=== PATIENT | male | born 1965 | race Caucasian/White ===

== ENCOUNTER 2017-05-28 09:27 | Outpatient (RCR) | payer MEDICARE, OTHER, SELFPAY ==
[2017-05-04 08:31] LABS: Hematocrit 48.5 % (40-54); Hemoglobin 15.7 g/dl (13.0-16.5); Mean Corp Hgb Conc 32.4 g/gl (32-36); Mean Corpuscular Hgb 28.6 pg (27.0-32.0); Mean Corpuscular Volume 88.5 fL (80-94); Mean Platelet Vol. 10.7 fl (6.2-12.0); Platelet Count 180 K/mm3 (150-450); RBC Distribution Width CV 14.1 % (11.6-14.6); Red Blood Count 5.48 M/mm3 (4.6-6.2); White Blood Count 5.8 K/mm3 (4.4-11.0)
[2017-05-04 08:42] LABS: Scan Indicated on CBC? Y/N NO
[2017-05-04 08:52] LABS: BUN 23 mg/dL (7-18); Calcium,Total 7.9 mg/dL (8.5-10.1); Chloride 106 mmol/L (98-107); Creatinine, Serum 1.64 mg/dL (0.70-1.30); EST Glomerular Filtration Rate 48 mL/min (>60); Est Glom Filt Rate - Afr Amer 58 mL/min (>60); Glucose 89 mg/dL (70-110); Phosphorus 1.8 mg/dL (2.5-4.9); Potassium 3.8 mmol/L (3.5-5.1); Sodium Level 138 mmol/L (136-145)
[2017-05-04 09:15] LABS: Prograf-FK506 TO CCF/UNIV MAILED SPECIMEN
== END 2017-05-28 09:45 | disposition home or self-care (01) ==
LOC: LAB 09:27
PROVIDERS: Family Provider Family Medicine; PCP Family Medicine
DX: D89.9 Disorder involving the immune mechanism, unspecified (principal); Z94.0 Kidney transplant status
CPT/HCPCS: 36415; 80069; 85027

== ENCOUNTER 2017-06-18 08:05 | Outpatient (RCR) | payer MEDICARE, OTHER, SELFPAY ==
[2017-06-04 09:12] LABS: Hematocrit 45.7 % (40-54); Hemoglobin 14.5 g/dl (13.0-16.5); Mean Corp Hgb Conc 31.7 g/gl (32-36); Mean Corpuscular Volume 88.4 fL (80-94); Mean Platelet Vol. 9.8 fl (6.2-12.0); Platelet Count 224 K/mm3 (150-450); RBC Distribution Width CV 13.5 % (11.6-14.6); RBC Distribution Width SD 43.4 fl (35.1-43.9); Red Blood Count 5.17 M/mm3 (4.6-6.2)
[2017-06-04 09:13] LABS: Scan Indicated on CBC? Y/N NO
[2017-06-04 09:40] LABS: Albumin, Serum 3.6 g/dL (3.2-5.0); BUN 26 mg/dL (7-18); BUN/Creat Ratio 17.8 RATIO (10-20); Calcium,Total 8.2 mg/dL (8.5-10.1); Chloride 112 mmol/L (98-107); Creatinine, Serum 1.46 mg/dL (0.70-1.30); EST Glomerular Filtration Rate 54 mL/min (>60); Est Glom Filt Rate - Afr Amer 66 mL/min (>60); Glucose 90 mg/dL (70-110); Phosphorus 2.3 mg/dL (2.5-4.9); Potassium 4.3 mmol/L (3.5-5.1); Sodium Level 141 mmol/L (136-145)
[2017-06-18 08:56] LABS: Hematocrit 45.5 % (40-54); Hemoglobin 14.9 g/dl (13.0-16.5); Mean Corp Hgb Conc 32.7 g/gl (32-36); Mean Corpuscular Hgb 28.7 pg (27.0-32.0); Mean Corpuscular Volume 87.7 fL (80-94); Platelet Count 174 K/mm3 (150-450); RBC Distribution Width CV 13.9 % (11.6-14.6); RBC Distribution Width SD 44.2 fl (35.1-43.9); Red Blood Count 5.19 M/mm3 (4.6-6.2); White Blood Count 3.9 K/mm3 (4.4-11.0)
[2017-06-18 08:58] LABS: Scan Indicated on CBC? Y/N NO
[2017-06-18 09:28] LABS: Albumin, Serum 3.8 g/dL (3.2-5.0); BUN 22 mg/dL (7-18); Chloride 108 mmol/L (98-107); Creatinine, Serum 1.57 mg/dL (0.70-1.30); EST Glomerular Filtration Rate 50 mL/min (>60); Est Glom Filt Rate - Afr Amer 60 mL/min (>60); Glucose 99 mg/dL (74-106); Phosphorus 2.4 mg/dL (2.5-4.9); Potassium 3.6 mmol/L (3.5-5.1); Sodium Level 141 mmol/L (136-145)
[2017-06-21 07:46] LABS: Tacrolimus (FK506) 12.9 ng/mL (2.0-20.0)
== END 2017-06-18 15:00 | disposition home or self-care (01) ==
LOC: LAB 08:05
PROVIDERS: Family Provider Family Medicine; PCP Family Medicine
DX: D89.9 Disorder involving the immune mechanism, unspecified (principal); Z94.0 Kidney transplant status
CPT/HCPCS: 36415; 80069; 80197; 85027

== ENCOUNTER → 2017-07-12 10:46 | Outpatient (CLI) | payer MEDICARE, OTHER, SELFPAY ==
--- NOTE | 2017-07-12 10:48 | US_ITS ---
STUDY: RENAL ULTRASOUND - COMPLETE REASON FOR EXAM: Male, 52 years old. HEMATURIA, CKD AND H/O RT RENAL TRANSPLANT TECHNIQUE: Ultrasound evaluation of the kidneys was performed with real-time and static cruz-scale imaging. COMPARISON: US Kidneys Bilateral Jul 15 2016 10:10am . FINDINGS: RIGHT KIDNEY: with moderate renal atrophy. The right kidney measures 6.9X2.8X3.2 cm. There is diffuse thinning of the renal cortex. The renal cortex measures 0.6 cm. Right renal cyst measuring 10 x 10 mm. There are no right renal calculi. There is moderate hydronephrosis of the right kidney. DISTAL RIGHT URETER: There is non-visualization of the distal right ureter. There is no demonstrated right ureterovesical junction calculus. There is no demonstrated right ureteral jet. Right renal transplant kidney: 10 x 4.4 x 4.6cm in size. Cortex is 17mm. LEFT KIDNEY: NOT SEEN. DISTAL LEFT URETER: There is no demonstrated left ureteral jet. BLADDER: There is a diffusely thickened wall of the distended bladder. Echogenic debris is seen within the dependent aspect of the urinary bladder. There are no demonstrated bladder calculi. US/Kidney and Bladder IMPRESSION: Atrophic right [place] kidney. There is moderate hydronephrosis of the right kidney. There is a diffusely thickened wall of the distended bladder. Echogenic debris is seen within the dependent aspect of the urinary bladder. Unremarkable right renal transplant kidney. Electronically Signed: Hans Wong MD at 17:37 EDT , Service support ,
== END ==
PROVIDERS: Family Provider Family Medicine; PCP Family Medicine; Visit Provider Nurse Practitioner Adult Health
DX: N18.9 Chronic kidney disease, unspecified (principal); R31.9 Hematuria, unspecified
CPT/HCPCS: 76770

== ENCOUNTER 2017-07-13 21:32 | Inpatient (IN) | payer MEDICARE, OTHER, SELFPAY ==
[2017-07-13] VITALS (7 sets, daily range): BP systolic 121–123; BP diastolic 67–88; PULSE 110–136; RESP 16–24; TEMP 37.7–38.5; O2SAT 93–96; BMI 24.5
--- NOTE | 2017-07-13 21:47 | EKG12_ITS ---
Test Reason : FEVER Blood Pressure : / mmHG Vent. Rate : 122 BPM Atrial Rate : 122 BPM P-R Int : 136 ms QRS Dur : 076 ms QT Int : 306 ms P-R-T Axes : 040 -07 055 degrees QTc Int : 436 ms Sinus tachycardia Otherwise normal ECG Confirmed by SUSAN MORENO, RAEANN ([id number]), assistant production editor EUGENIO CONKLIN ([id number] on 07/16/2017 1:29:09 PM Referred By: BROOK Confirmed By:RAEANN DAVIS MD
--- NOTE | 2017-07-13 21:50 | RAD_ITS ---
STUDY: X-RAY CHEST REASON FOR EXAM: Male, 52 years old. , cough, and abdominal pain TECHNIQUE: Single AP portable view of the chest. fever COMPARISON: None. FINDINGS: The lungs are clear and expanded. There is no demonstrated pleural abnormality. Normal size heart. Normal mediastinum and [place]. Normal visualized pulmonary arteries. Normal visualized aortic arch and descending thoracic aorta. Normal visualized thoracic spine. Normal visualized ribs, clavicles, and shoulders. There is no demonstrated abnormality of the visualized soft tissue structures of the upper abdomen. RAD/Chest 1 View (Portable) IMPRESSION: Normal x-ray examination of the chest. Electronically Signed: Hans Wong MD at 22:44 EDT , Service support ,
[2017-07-13] MEDS: Acetaminophen 500 MG Tablet 1000 MG PO (22:01)
[2017-07-13] MEDS: 0.9% Normal Saline 1,000 ML 250 ML IV (22:16)
[2017-07-13 22:28] LABS: Absolute Lymphocyte Count 0.41 X10^3/ul (0.83-4.51); Absolute Neutrophil Count 3.7 X10^3/uL (2.0-7.7); Basophil# 0.01 X10^3/uL; Basophil% 0.2 % (0-1); Hematocrit 46.8 % (40-54); International Normalized Ratio 1.1; Lymphocyte # 0.41 X10^3/ul (4.0); Lymphocyte % 9.4 % (19-41); Mean Corp Hgb Conc 32.1 g/gl (32-36); Mean Corpuscular Hgb 28.4 pg (27.0-32.0); Mean Corpuscular Volume 88.6 fL (80-94); Mean Platelet Vol. 10.5 fl (6.2-12.0); Monocyte# 0.13 X10^3/uL; Neutrophil # 3.72 X10^3/uL (2.7-7.7); Neutrophil % 85.8 % (47-70); Platelet Count 166 K/mm3 (150-450); Prothrombin Time (Protime)PT. 14.1 SECONDS (11.7-14.9); RBC Distribution Width CV 13.9 % (11.6-14.6); RBC Distribution Width SD 44.8 fl (35.1-43.9); Red Blood Count 5.28 M/mm3 (4.6-6.2); White Blood Count 4.3 K/mm3 (4.4-11.0)
[2017-07-13 22:29] LABS: Differential Indicated SCAN CRITERIA MET; POSITIVE COUNT NO; POSITIVE DIFFERENTIAL YES; POSITIVE MORPHOLOGY NO
[2017-07-13 22:42] LABS: ALB/GLOB Ratio 1.2 RATIO (0.9-2.4); AST(SGOT) 23 U/L (15-37); Alanine Aminotransfer ALT/SGPT 26 U/L (16-61); Albumin, Serum 4.1 g/dL (3.2-5.0); Alkaline Phosphatase 60 U/L (45-117); Anion Gap 11 (5-15); BUN 15 mg/dL (7-18); BUN/Creat Ratio 9.4 RATIO (10-20); Chloride 111 mmol/L (98-107); EST Glomerular Filtration Rate 49 mL/min (>60); Est Glom Filt Rate - Afr Amer 59 mL/min (>60); Estimated Creatinine Clearance 60.63 ml/min; Globulin 3.3 g/dL (2.2-4.2); Glucose 115 mg/dL (74-106); Potassium 3.9 mmol/L (3.5-5.1); Protein, Total 7.4 g/dL (6.4-8.2); Sodium Level 141 mmol/L (136-145)
[2017-07-13 22:48] LABS: Lactic Acid 1.1 mmol/L (0.4-2.0)
[2017-07-13 22:56] LABS: Mucous, Urine 0 SEEN /hpf (<or=2+)
[2017-07-13 22:56] LABS: Differential Comment SCANNED
[2017-07-13 22:58] LABS: Color, Urine Yellow (Yellow); Glucose, Dipstick Normal (Normal); Ketone-Dipstick Negative (Negative); Leukocyte Esterase-Dipstick 500 /ul (Negative); Nitrite-Dipstick Negative (Negative); Occult Blood-Urine 250 /ul (Negative); Protein-Dipstick 30 mg/dl (Negative); Specific Gravity, Urine 1.015 (1.002-1.030); Urine Bilirubin Dipstick Negative (Negative); Urine Clarity Sl. Cloudy (Clear); Urine Urobilinogen Normal (Normal)
[2017-07-13 23:09] LABS: Bacteria 3+ /hpf (None Seen); Red Blood Cells-Urine 25-50 SEEN /hpf (0-5); Squamous Epithelial Cells - UA 0-5 SEEN /hpf (0-5); White Blood Cells >100 SEEN /hpf (0-5)
[2017-07-13] MEDS: Ceftriaxone 1 GM/50 ML BAG IV (23:22)
--- NOTE | 2017-07-13 23:29 | ED.DCSUM_ITS ---
- ER Visit Summary Date of Service: 07/13/17 Chief Complaint: Fever nausea and vomiting History of Present Illness: The patient is a 52 M presenting for evaluation secondary to fever nausea and vomiting. Patient has an underlying history of renal transplant and is on immunosuppression. Patient states that over the course last 2 days he has started to have some increasing fatigue, and then today this morning he developed fevers as high as 102 generalized malaise, cough , and one episode of nonbloody nonbilious emesis. Patient does self catheterize to urinate but denies any changes in his urination. Denies any diarrhea. Denies any headaches or neck stiffness. Review of systems otherwise negative. Physical Examination: Vital signs notable for a fever of 101.3 and a heart rate of 124 respiratory rate of 24. Well-nourished well-developed male no acute distress. Head normocephalic. Dry mucous membranes noted. Heart was tachycardic and regular. Lung sounds clear to auscultation bilaterally respirations nondistressed with mild tachypnea. Abdomen was soft and nontender. 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 Skin is palpably hot. Patient is alert and oriented with no lateralizing neurologic deficits. Test Results: EKG demonstrates sinus tachycardia rate of [address] segments normal T waves no changes from prior. CBC shows mild leukopenia with a white blood cell count of 4.3, a neutrophilic predominance of 85% with bands cells. Chemistry shows no anion gap but does show a CO2 of 19. Patient's creatinine was 1.6 which is at his baseline. Urinalysis demonstrates evidence of leukocytes blood and bacteria. Lactate found to be negative. Flu negative. Chest x-ray negative. Emergency Department Course and Treatment: Patient presented with a fever and generalized illness in the setting of being immunosuppressed. Sepsis workup was obtained including cultures of the blood in the urine. Patient was started on IV saline hydration was given a gram of Tylenol. Repeat evaluation did show improvement of his heart rate, but continued fever. Workup shows only bacteria and white cells in the urine which could potentially be chronic given his self cathing, but at this point that is the only source of infection that I have. Patient was given a gram of Rocephin and will be admitted under the hospitalist. Disposition: Admission Impression: 1. Sepsis 2. Urinary tract infection 3. History of immunosuppression 4. Chronic kidney disease This note was generated with [employer] dictation software. It may contain incorrect words, spelling, and punctuation that were not noted in review of the chart prior to signing ED Disposition - Plan for ED Patient: Chief Complaint: General Illness Referrals: Mike Bella MD [Primary Care Provider] -
--- NOTE | 2017-07-13 23:36 | PCM.HP.STD ---
Problem List (1) Congenital nystagmus Status: Chronic (2) Mild MRDD Status: Chronic (3) DVT (deep venous thrombosis) Status: Chronic Qualifiers: Affected thrombotic vein of extremity: unspecified vein of extremity Chronicity: unspecified Laterality: unspecified laterality (4) Renal transplant, status post Status: Chronic (5) Neurogenic bladder disorder Status: Chronic Comment: managed with cic (6) CKD (chronic kidney disease), stage III Status: Chronic (7) Acute UTI Status: Acute History of Present Illness Date of Admission: 07/13/17 Chief Complaint: Fever, Nausea/Emesis, Suprapubic pain The patient is a 52 y/o M w/ PMHx: Mild MRDD with help from his family/sister, Congenital Nystagmus, CKD stage III (baseline Cr 1.6 currently, prior ESRD s/p Renal Txp), Renal Txp status on immunosuppressive therapy, Neurogenic bladder w/ self catheterization, Hx DVT who presents to the [facility] ED on 07/13/17 with history of onset fever 102, nausea, emesis in addition to suprapubic pain x 24 hours. He notes that he has not been catheterization as frequently as he should secondary to current family issues with sister assisting other family and less able to frequently remind him to self catheterize (should be q 4 hours during daytime hours she notes). In the ED work-up includes T 101.3, HR 113, BP 121/67, RR 18, 95% on 2L NC, CBC w/ WBC 4.3, Hgb 15, Plts 166 without marked L shift, normal coags, CMP w/ Chl 111, CO2 19, BUN/Cr 15/1.60, glucose 115, LA 1.1, TBili 1.30, UA concerning for UTI, CXR unremarkable. In the ED patient administered tylenol, rocephin, NS. Past Medical History Past Medical History (Chronic Problems): Chronic Problems CKD (chronic kidney disease), stage III (Chronic) Congenital nystagmus (Chronic) Mild MRDD (Chronic) DVT (deep venous thrombosis) (Chronic) Renal transplant, status post (Chronic) Neurogenic bladder disorder (Chronic) managed with cic Allergies No Known Allergies Allergy (Verified 07/13/17 21:32) Home Medications: Ambulatory Orders Medication Instructions Recorded Mycophenolate Mofetil [Cellcept] 500 mg PO BID 03/14/17 Amlodipine [Norvasc] 5 mg PO 2100 12/01/16 Tacrolimus Anhydrous [Prograf] 2 mg PO BID 12/02/16 Sulfamethoxazole/Trimethoprim 1 tab PO DAILY 07/13/17 [Sulfamethoxazole-Tmp Ss Tablet] Surgical History: - - Right kidney transplant [facility], dialysis access prior. Psychiatric History: No pertinent psych hx Lives: Alone Smoking Status: Never smoker Tobacco Use: Non-smoker Alcohol: None Drugs: None - *Family History Maternal History Items: Hypertension Paternal History Items: Diabetes Review of Systems Constitutional: Reports: Anorexia, Chills, Fever, Malaise, Weakness, Fatigue. Denies: Weight Change HEENT: Denies: Head Aches, Sinus Congestion, Sinus Drainage Cardiovascular: Denies: Chest Pain, Palpitations Respiratory: Denies: Cough, Shortness of breath at rest, Sputum production Gastrointestinal: Reports: Abdominal Pain, Nausea, Vomiting Genitourinary: Reports: Retention. Denies: Dysuria Musculoskeletal: Denies: Joint Pain, Joint Tenderness Skin: Denies: Rash, Wounds Neurological: Denies: Numbness, Tingling, Focal weakness Psychiatric: Denies: Anxiety, Depression, Homicidal Ideations, Suicidal Ideations Hematologic/ Lymphatic: Denies: Easy Bruising, Easy Bleeding VTE Information - Inpt Only VTE Present on Admission: No VTE Mechan Device Prophylaxis: SCD's VTE Pharm Prophylaxis ordered?: Yes Patient Problems: Active and Suspected Problems Acute UTI (Acute) Subjective: Seated upright in the ED bed, fatigued appearing. Objective: Physical Examination: General: awake, alert, oriented x 3 and cooperative, seated upright in the ED bed in no apparent distress. Skin: normal color, turgor, no icterus, cyanosis. HEENT: AT/NC, EOMI, PERRLA, dry MM, mildly poor dentition, nystagmus present (chronic), no carotid bruits or JVD noted. Lungs: CTA bilaterally, moderate effort, moderate decrease BL bases, no rales, ronchi or wheezing. Heart: Tachycardic with regular rhythm; no gallop, rub audible. Abdomen: soft, + suprapubic TTP, ND, normal BS, no HSM, harman in place per ED. Extremities: no cyanosis, clubbing, or edema. Neurological: patient awake, alert, oriented x 3; cognitive function intact; pupils equally reactive to light and accomodation; cranial nerves II-XII grossly normal, moving all 4 extremities, no focal deficits, strength moderately to severely globally decreased secondary to acute presentation. Psychiatric: affect appears mildly flat, no acute evidence of depressive or anxiety feelings. - Physical Exam Vital Signs Temp Pulse Resp BP Pulse Ox 100 F H 121 H 18 123/67 H 95 07/13/17 23:28 07/13/17 23:28 07/13/17 23:28 07/13/17 23:28 07/13/17 23:28 Oxygen Flow Rate (L/min) 2 Oxygen Delivery Method Nasal Cannula Weight: 180 lb 8.937 oz Body Mass Index (BMI) 24.5 Microbiology Past 72 Hours 07/13/17 22:28 Influenza Types A,B Direct FA (NYA) - Final Mucosa - Nasopharyngeal Laboratory Tests Past 24 Hrs 07/13/17 07/13/17 07/13/17 22:10 22:10 22:10 WBC 4.3 L RBC 5.28 Hgb 15.0 Hct 46.8 MCV 88.6 MCH 28.4 MCHC 32.1 RDW 13.9 RDW Differential 44.8 H Plt Count 166 MPV 10.5 Immature Gran % (Auto) 1.600 H Neut % (Auto) 85.8 H Lymph % (Auto) 9.4 L [place] % (Auto) 3.0 Eos % (Auto) 0.0 Baso % (Auto) 0.2 Absolute Neuts (auto) 3.7 Absolute Lymphs (auto) 0.41 L Total Counted Not Reportable Differential Comment SCANNED PT 14.1 INR 1.1 APTT 29.0 Sodium 141 Potassium 3.9 Chloride 111 H Carbon Dioxide 19.0 L Anion Gap 11 BUN 15 Creatinine 1.60 H Estim Creat Clear Calc 60.63 Est GFR (MDRD) Af Amer 59 L Est GFR (MDRD) Non-Af 49 L BUN/Creatinine Ratio 9.4 L Glucose 115 H Lactic Acid Calcium 8.0 L Total Bilirubin 1.30 H AST 23 ALT 26 Alkaline Phosphatase 60 Total Protein 7.4 Albumin 4.1 Globulin 3.3 Albumin/Globulin Ratio 1.2 Urine Color Urine Clarity Urine pH Ur Specific [place] Urine Protein Urine Glucose (UA) Urine Ketones Urine Occult Blood Urine Nitrite Urine Bilirubin Urine Urobilinogen Ur Leukocyte Esterase Urine RBC Urine WBC Ur Squamous Epith Cells Urine Bacteria Urine Mucus 07/13/17 07/13/17 22:10 22:45 WBC RBC Hgb Hct MCV MCH MCHC RDW RDW Differential Plt Count MPV Immature Gran % (Auto) Neut % (Auto) Lymph % (Auto) [place] % (Auto) Eos % (Auto) Baso % (Auto) Absolute Neuts (auto) Absolute Lymphs (auto) Total Counted Differential Comment PT INR APTT Sodium Potassium Chloride Carbon Dioxide Anion Gap BUN Creatinine Estim Creat Clear Calc Est GFR (MDRD) Af Amer Est GFR (MDRD) Non-Af BUN/Creatinine Ratio Glucose Lactic Acid 1.1 Calcium Total Bilirubin AST ALT Alkaline Phosphatase Total Protein Albumin Globulin Albumin/Globulin Ratio Urine Color Yellow Urine Clarity Sl. Cloudy Urine pH 6.0 Ur Specific [place] 1.015 Urine Protein 30 H Urine Glucose (UA) Normal Urine Ketones Negative Urine Occult Blood 250 H Urine Nitrite Negative Urine Bilirubin Negative Urine Urobilinogen Normal Ur Leukocyte Esterase 500 H Urine RBC 25-50 SEEN Urine WBC >100 SEEN Ur Squamous Epith Cells 0-5 SEEN Urine Bacteria 3+ Urine Mucus 0 SEEN Assessment/Plan Active and Suspected Problems Acute UTI (Acute) The patient is a 52 y/o M w/ PMHx: Mild MRDD with help from his family/sister, Congenital Nystagmus, CKD stage III (baseline Cr 1.6 currently, prior ESRD s/p Renal Txp), Renal Txp status on immunosuppressive therapy, Neurogenic bladder w/ self catheterization, Hx DVT who presents to the [facility] ED on 07/13/17 with history of onset fever 102, nausea, emesis in addition to suprapubic pain x 24 hours. (1) Acute Complicated Urinary Tract Infection complicated by Neurogenic Bladder and Self-Catheterization: Will admit to [facility] upon ED evaluation remarkable, pending UCx, continue IVFs, monitor I/Os, continue IV Rocephin w/ transition as able pending sensitivities and speciation. Bld cx x 2 obtained in the ED. Given complicated history s/p renal txp, will request ID evaluation also to be cautious. (2) Prior ESRD/CKD IV, currently CKD stage III, status post kidney transplant: Admission BUN/Cr 15/1.60, stable, baseline Cr 1.6, continue cellcept, prograf, bactrim prophylactic regimen. ID as noted consulted, pending. (3) Hypertension: Continue home regimen including norvasc, PRN hydralazine. (4) Mild mental retardation: Stable, family supportive, CM requested to assure assistance. (5) Chronic neurogenic bladder: As noted per #1, harman placed in the ED, will need aggressive education on appropriate catheterization, has been hesitant secondary to pain, planned upcoming re-evaluation per Dr. Dennis per family report. (6) DVT Prophylaxis: SCDs, heparin. Code Visit Inpatient E&M: 34296 Init Hosp L3
--- NOTE | 2017-07-13 23:46 | HP.PCM_ITS ---
Problem List (1) Congenital nystagmus Status: Chronic (2) Mild MRDD Status: Chronic (3) DVT (deep venous thrombosis) Status: Chronic Qualifiers: Affected thrombotic vein of extremity: unspecified vein of extremity Chronicity: unspecified Laterality: unspecified laterality (4) Renal transplant, status post Status: Chronic (5) Neurogenic bladder disorder Status: Chronic Comment: managed with cic (6) CKD (chronic kidney disease), stage III Status: Chronic (7) Acute UTI Status: Acute History of Present Illness Date of Admission: 07/13/17 Chief Complaint: Fever, Nausea/Emesis, Suprapubic pain The patient is a 52 y/o M w/ PMHx: Mild MRDD with help from his family/sister, Congenital Nystagmus, CKD stage III (baseline Cr 1.6 currently, prior ESRD s/p Renal Txp), Renal Txp status on immunosuppressive therapy, Neurogenic bladder w / self catheterization, Hx DVT who presents to the [facility] ED on 07/13/17 with history of onset fever 102, nausea, emesis in addition to suprapubic pain x 24 hours. He notes that he has not been catheterization as frequently as he should secondary to current family issues with sister assisting other family and less able to frequently remind him to self catheterize (should be q 4 hours during daytime hours she notes). In the ED work-up includes T 101.3, HR 113, BP 121/67 , RR 18, 95% on 2L NC, CBC w/ WBC 4.3, Hgb 15, Plts 166 without marked L shift, normal coags, CMP w/ Chl 111, CO2 19, BUN/Cr 15/1.60, glucose 115, LA 1.1, TBili 1.30, UA concerning for UTI, CXR unremarkable. In the ED patient administered tylenol, rocephin, NS. Past Medical History Past Medical History (Chronic Problems): Chronic Problems CKD (chronic kidney disease), stage III (Chronic) Congenital nystagmus (Chronic) Mild MRDD (Chronic) DVT (deep venous thrombosis) (Chronic) Renal transplant, status post (Chronic) Neurogenic bladder disorder (Chronic) managed with cic Allergies No Known Allergies Allergy (Verified 07/13/17 21:32) Home Medications: Ambulatory Orders Medication Instructions Recorded Mycophenolate Mofetil [Cellcept] 500 mg PO BID 03/14/17 Amlodipine [Norvasc] 5 mg PO 2100 12/01/16 Tacrolimus Anhydrous [Prograf] 2 mg PO BID 12/02/16 Sulfamethoxazole/Trimethoprim 1 tab PO DAILY 07/13/17 [Sulfamethoxazole-Tmp Ss Tablet] Surgical History: - - Right kidney transplant [facility], dialysis access prior. Psychiatric History: No pertinent psych hx Lives: Alone Smoking Status: Never smoker Tobacco Use: Non-smoker Alcohol: None Drugs: None - *Family History Maternal History Items: Hypertension Paternal History Items: Diabetes Review of Systems Constitutional: Reports: Anorexia, Chills, Fever, Malaise, Weakness, Fatigue. Denies: Weight Change HEENT: Denies: Head Aches, Sinus Congestion, Sinus Drainage Cardiovascular: Denies: Chest Pain, Palpitations Respiratory: Denies: Cough, Shortness of breath at rest, Sputum production Gastrointestinal: Reports: Abdominal Pain, Nausea, Vomiting Genitourinary: Reports: Retention. Denies: Dysuria Musculoskeletal: Denies: Joint Pain, Joint Tenderness Skin: Denies: Rash, Wounds Neurological: Denies: Numbness, Tingling, Focal weakness Psychiatric: Denies: Anxiety, Depression, Homicidal Ideations, Suicidal Ideations Hematologic/ Lymphatic: Denies: Easy Bruising, Easy Bleeding VTE Information - Inpt Only VTE Present on Admission: No VTE Mechan Device Prophylaxis: SCD's VTE Pharm Prophylaxis ordered?: Yes Patient Problems: Active and Suspected Problems Acute UTI (Acute) Subjective: Seated upright in the ED bed, fatigued appearing. Objective: Physical Examination: General: awake, alert, oriented x 3 and cooperative, seated upright in the ED bed in no apparent distress. Skin: normal color, turgor, no icterus, cyanosis. HEENT: AT/NC, EOMI, PERRLA, dry MM, mildly poor dentition, nystagmus present ( chronic), no carotid bruits or JVD noted. Lungs: CTA bilaterally, moderate effort, moderate decrease BL bases, no rales, ronchi or wheezing. Heart: Tachycardic with regular rhythm; no gallop, rub audible. Abdomen: soft, + suprapubic TTP, ND, normal BS, no HSM, harman in place per ED. Extremities: no cyanosis, clubbing, or edema. Neurological: patient awake, alert, oriented x 3; cognitive function intact; pupils equally reactive to light and accomodation; cranial nerves II-XII grossly normal, moving all 4 extremities, no focal deficits, strength moderately to severely globally decreased secondary to acute presentation. Psychiatric: affect appears mildly flat, no acute evidence of depressive or anxiety feelings. - Physical Exam Vital Signs Temp Pulse Resp BP Pulse Ox 100 F H 121 H 18 123/67 H 95 07/13/17 23:28 07/13/17 23:28 07/13/17 23:28 07/13/17 23:28 07/13/17 23:28 Oxygen Flow Rate (L/min) 2 Oxygen Delivery Method Nasal Cannula Weight: 180 lb 8.937 oz Body Mass Index (BMI) 24.5 Microbiology Past 72 Hours 07/13/17 22:28 Influenza Types A,B Direct FA (NYA) - Final Mucosa - Nasopharyngeal Laboratory Tests Past 24 Hrs 07/13/17 07/13/17 07/13/17 22:10 22:10 22:10 WBC 4.3 L RBC 5.28 Hgb 15.0 Hct 46.8 MCV 88.6 MCH 28.4 MCHC 32.1 RDW 13.9 RDW Differential 44.8 H Plt Count 166 MPV 10.5 Immature Gran % (Auto) 1.600 H Neut % (Auto) 85.8 H Lymph % (Auto) 9.4 L [place] % (Auto) 3.0 Eos % (Auto) 0.0 Baso % (Auto) 0.2 Absolute Neuts (auto) 3.7 Absolute Lymphs (auto) 0.41 L Total Counted Not Reportable Differential Comment SCANNED PT 14.1 INR 1.1 APTT 29.0 Sodium 141 Potassium 3.9 Chloride 111 H Carbon Dioxide 19.0 L Anion Gap 11 BUN 15 Creatinine 1.60 H Estim Creat Clear Calc 60.63 Est GFR (MDRD) Af Amer 59 L Est GFR (MDRD) Non-Af 49 L BUN/Creatinine Ratio 9.4 L Glucose 115 H Lactic Acid Calcium 8.0 L Total Bilirubin 1.30 H AST 23 ALT 26 Alkaline Phosphatase 60 Total Protein 7.4 Albumin 4.1 Globulin 3.3 Albumin/Globulin Ratio 1.2 Urine Color Urine Clarity Urine pH Ur Specific [place] Urine Protein Urine Glucose (UA) Urine Ketones Urine Occult Blood Urine Nitrite Urine Bilirubin Urine Urobilinogen Ur Leukocyte Esterase Urine RBC Urine WBC Ur Squamous Epith Cells Urine Bacteria Urine Mucus 07/13/17 07/13/17 22:10 22:45 WBC RBC Hgb Hct MCV MCH MCHC RDW RDW Differential Plt Count MPV Immature Gran % (Auto) Neut % (Auto) Lymph % (Auto) [place] % (Auto) Eos % (Auto) Baso % (Auto) Absolute Neuts (auto) Absolute Lymphs (auto) Total Counted Differential Comment PT INR APTT Sodium Potassium Chloride Carbon Dioxide Anion Gap BUN Creatinine Estim Creat Clear Calc Est GFR (MDRD) Af Amer Est GFR (MDRD) Non-Af BUN/Creatinine Ratio Glucose Lactic Acid 1.1 Calcium Total Bilirubin AST ALT Alkaline Phosphatase Total Protein Albumin Globulin Albumin/Globulin Ratio Urine Color Yellow Urine Clarity Sl. Cloudy Urine pH 6.0 Ur Specific [place] 1.015 Urine Protein 30 H Urine Glucose (UA) Normal Urine Ketones Negative Urine Occult Blood 250 H Urine Nitrite Negative Urine Bilirubin Negative Urine Urobilinogen Normal Ur Leukocyte Esterase 500 H Urine RBC 25-50 SEEN Urine WBC >100 SEEN Ur Squamous Epith Cells 0-5 SEEN Urine Bacteria 3+ Urine Mucus 0 SEEN Assessment/Plan Active and Suspected Problems Acute UTI (Acute) The patient is a 52 y/o M w/ PMHx: Mild MRDD with help from his family/sister, Congenital Nystagmus, CKD stage III (baseline Cr 1.6 currently, prior ESRD s/p Renal Txp), Renal Txp status on immunosuppressive therapy, Neurogenic bladder w / self catheterization, Hx DVT who presents to the [facility] ED on 07/13/17 with history of onset fever 102, nausea, emesis in addition to suprapubic pain x 24 hours. (1) Acute Complicated Urinary Tract Infection complicated by Neurogenic Bladder and Self-Catheterization: Will admit to [facility] upon ED evaluation remarkable, pending UCx, continue IVFs, monitor I/Os, continue IV Rocephin w/ transition as able pending sensitivities and speciation. Bld cx x 2 obtained in the ED. Given complicated history s/p renal txp, will request ID evaluation also to be cautious. (2) Prior ESRD/CKD IV, currently CKD stage III, status post kidney transplant: Admission BUN/Cr 15/1.60, stable, baseline Cr 1.6, continue cellcept, prograf, bactrim prophylactic regimen. ID as noted consulted, pending. (3) Hypertension: Continue home regimen including norvasc, PRN hydralazine. (4) Mild mental retardation: Stable, family supportive, CM requested to assure assistance. (5) Chronic neurogenic bladder: As noted per #1, harman placed in the ED, will need aggressive education on appropriate catheterization, has been hesitant secondary to pain, planned upcoming re-evaluation per Dr. Dennis per family report. (6) DVT Prophylaxis: SCDs, heparin. Code Visit Inpatient E&M: 27641 Init Hosp L3
[2017-07-14] VITALS (10 sets, daily range): BP systolic 104–130; BP diastolic 54–83; PULSE 97–115; RESP 16–20; TEMP 36.8–39.4; O2SAT 94–100; BMI 23.7
[2017-07-14 01:22] LABS: Magnesium 1.4 mg/dL (1.6-2.6)
[2017-07-14] MEDS: 0.9% Normal Saline 1,000 ML 150 ML IV ×3 (06:12→21:29)
[2017-07-14 06:47] LABS: Hematocrit 44.2 % (40-54); Hemoglobin 14.3 g/dl (13.0-16.5); Mean Corp Hgb Conc 32.4 g/gl (32-36); Mean Corpuscular Hgb 28.5 pg (27.0-32.0); Mean Platelet Vol. 10.7 fl (6.2-12.0); Platelet Count 162 K/mm3 (150-450); RBC Distribution Width SD 44.5 fl (35.1-43.9); Red Blood Count 5.02 M/mm3 (4.6-6.2); White Blood Count 4.1 K/mm3 (4.4-11.0)
[2017-07-14 06:49] LABS: Differential Indicated MANUAL DIFF; POSITIVE COUNT YES; POSITIVE DIFFERENTIAL YES; POSITIVE MORPHOLOGY YES
[2017-07-14 07:03] LABS: Anion Gap 8 (5-15); BUN 15 mg/dL (7-18); BUN/Creat Ratio 9.3 RATIO (10-20); Calcium,Total 7.5 mg/dL (8.5-10.1); Chloride 111 mmol/L (98-107); Creatinine, Serum 1.62 mg/dL (0.70-1.30); EST Glomerular Filtration Rate 48 mL/min (>60); Est Glom Filt Rate - Afr Amer 58 mL/min (>60); Estimated Creatinine Clearance 59.88 ml/min; Glucose 124 mg/dL (74-106); Potassium 3.9 mmol/L (3.5-5.1); Sodium Level 140 mmol/L (136-145)
[2017-07-14] MEDS: Acetaminophen 325 MG Tablet 650 MG PO ×2 (07:03→15:54)
[2017-07-14 07:16] LABS: Lymphocyte 7 % (19-41); Metamyelocyte 1 % (0-1); Monocyte 8 % (0-10); Neutrophil-Band 6 % (0-5); Neutrophil-Segmented 78 % (47-70); Total Cells Counted 100 (MANUAL DIFF)
[2017-07-14 07:17] LABS: Platelet Estimate ADEQUATE (ADEQ); Red Cell Morphology NORM C+C NORMAL (NORM C&C)
[2017-07-14 07:18] LABS: Absolute Lymphocyte Count 0.29 X10^3/ul (0.83-4.51); Absolute Neutrophil Count 3.4 X10^3/uL (2.0-7.7)
[2017-07-14] MEDS: 0.9% NaCl Peripheral Flush Adult/Peds IV ×2 (08:08→15:55)
[2017-07-14] MEDS: Smz/Tmp Ds Tablet 0.5 TABLET PO (09:26)
[2017-07-14] MEDS: Ceftriaxone 1 GM/50 ML BAG IV (09:26)
[2017-07-14] MEDS: Mycophenolate Mofetil 250 MG Capsule 500 MG PO ×2 (09:28→21:24)
[2017-07-14] MEDS: Tacrolimus Anhydrous 1 MG Capsule 2 MG PO ×2 (09:28→21:24)
[2017-07-14 11:01] LABS: Pathologist Review Reviewed
--- NOTE | 2017-07-14 11:08 | PN_ITS ---
Patient Problems: Active and Suspected Problems Acute UTI (Acute) Subjective: The patient is a 52-year-old male with a past medical history of mild MRDD, congenital nystagmus, chronic renal failure stage III with a creatinine 1.6 currently, history of renal transplant on chronic immunosuppressive therapy, neurogenic bladder (he self caths) and history of DVT who presented to the [facility] emergency room on 07/13/2017 complaining of fever 102 at home with associated nausea, vomiting and suprapubic pain. He admitted to not catheterizing himself as frequently as he should because his sister has been busy with other family members and not able to remind him. No signs in the emergency room were temp 101.3, heart rate 113, blood pressure 121/67, respiratory rate 18 and he was 95% saturated on a 2 L nasal cannula. Significant lab included a white blood cell count of 4.386% neutrophils at 1.6% immature granulocytes. Hemoglobin and platelet count were within normal limits. Creatinine was 1.6 with a BUN of 15. Serum bicarb was low at 19. Knees and was low at 1.4 and phosphorus was not checked. LFTs were unremarkable. They showed 25-50 RBCs, greater than 100 WBCs, 0-5 squamous epithelial cells and 3+ bacteria. Chest x-ray was read as normal but per my examination reveals a possible infiltrate in the right base when compared to chest x-ray in January 2017. He was admitted to the hospital with acute complicated urinary tract infection in a patient who routinely self catheterizes who is on immunosuppressive drugs. He was started on Rocephin and blood cultures and urine culture were ordered. In the past he has grown an E. coli ESBL, Enterococcus faecalis, Klebsiella pneumoniae and Enterobacter in his urine. The E. Coli ESBL was sensitive to Imipenem and Resistant to Cefipime. - Physical Exam General: Alert, Cooperative, - - He has trouble staying on topic. He is very pleasant and talkative and he appears on no acute distress at the present time HEENT: Atraumatic, PERRLA, EOMI Oral: Moist Mucosa Neck: No Nodes, No Nuchal Rigidity, Trachea Midline Lungs: Clear to auscultation, No rhonchi, No wheeze, No rales Cardiovascular: Regular rate, Regular Rhythm, Normal S1, Normal S2, No murmurs, No rub noted, No Gallop Abdomen: Bowel Sounds Present, Soft, Non-Distended, - - diffusely tender but, no guarding with palpation Vital Signs Temp Pulse Resp BP Pulse Ox 99.9 F H 107 H 18 107/54 L 94 07/14/17 07:46 07/14/17 07:46 07/14/17 07:46 07/14/17 07:46 07/14/17 07:46 Oxygen Flow Rate (L/min) 2 Oxygen Delivery Method Nasal Cannula Weight: 175 lb 0.752 oz Body Mass Index (BMI) 23.7 Intake and Output for Last 24 Hours 07/12/17 07/13/17 07/14/17 23:59 23:59 23:59 Intake Total 635 / 635 Output Total 880 / 880 Balance -245 / -245 Laboratory Tests Past 24 Hrs 07/14/17 07/14/17 06:20 06:20 WBC 4.1 L RBC 5.02 Hgb 14.3 Hct 44.2 MCV 88.0 MCH 28.5 MCHC 32.4 RDW 14.0 RDW Differential 44.5 H Plt Count 162 MPV 10.7 Neut % (Auto) Not Reportable Absolute Neuts (auto) 3.4 Absolute Lymphs (auto) 0.29 L Total Counted 100 Neutrophils % (Manual) 78 H Band Neutrophils % 6 H Lymphocytes % (Manual) 7 L Monocytes % (Manual) 8 Metamyelocytes % 1 Diff Path Review May foll Platelet Estimate ADEQUATE RBC Morphology NORM C+C Sodium 140 Potassium 3.9 Chloride 111 H Carbon Dioxide 21.0 Anion Gap 8 BUN 15 Creatinine 1.62 H Estim Creat Clear Calc 59.88 Est GFR (MDRD) Af Amer 58 L Est GFR (MDRD) Non-Af 48 L BUN/Creatinine Ratio 9.3 L Glucose 124 H Calcium 7.5 L Assessment/Plan Active and Suspected Problems Acute UTI (Acute) Impressions 1. complicated UTI in an immunocompromised pt with a hx of a renal transplant who self catheterizes at home. ? whether this 52 YO man with MRDD needs more supervision at home....he states he does not self cath as often as he should because his sister forgets to remind him 2. CRF stage III after a kidney transplant 3. chronic immunosuppressive therapy with CellCept and Tacrolimus 4. Neurogenic bladder 5. History of DVT DC the Rocephin and start Merrem because he has grown a E. COLI ESBL in the past and it was resistant to Rocephin. Urine is growing a GM negative korey....will narrow the antibiotic spectrum when the culture results are back Will discuss with the SW and the DC operations planner - does he need to have better supervision at home? Consult [facility] REcheck the lab in the AM Continue Bactrim DS one half tablet daily Appreciate Dr. Santos's assistance in managing antibiotics Heparin 5000 units subcu twice daily for DVT prophylaxis and SCDs/SAMMY hose Monitor weights and I&O closely.....may need to cut back on the fluids Code Visit Inpatient E&M: 33767 Subs Hosp L2
--- NOTE | 2017-07-14 12:12 | PCM.HP.ID ---
Problem List (1) Acute UTI Status: Acute Reason for Consult: uti Consulted by: Dr. Russo History of Present Illness: The patient is a 52 year old M with MRDD, neurogenic bladder, and kidney transplant. Has been compliant with immunosuppression. Reports straight cath at home, but recently has been less frequent. Does not reuse catheters. Developed several days of central, continuous, 7/10 abd pain. Some fever, chills, general malaise, and nausea/vomiting. Came to ED, admitted on ceftriaxone last night, feeling a little better today. Full ROS performed and neg except as noted above. - Medical History Past Medical History (Chronic Problems): Chronic Problems CKD (chronic kidney disease), stage III (Chronic) Congenital nystagmus (Chronic) Mild MRDD (Chronic) DVT (deep venous thrombosis) (Chronic) Renal transplant, status post (Chronic) Neurogenic bladder disorder (Chronic) managed with cic Allergies/Adverse Reactions: Allergies No Known Allergies Allergy (Verified 07/13/17 21:32) Home Medications: Ambulatory Orders Medication Instructions Recorded Mycophenolate Mofetil [Cellcept] 500 mg PO BID 07/14/16 Amlodipine [Norvasc] 5 mg PO 2100 12/01/16 Tacrolimus Anhydrous [Prograf] 2 mg PO BID 12/02/16 Sulfamethoxazole/Trimethoprim 1 tab PO DAILY 07/13/17 [Sulfamethoxazole-Tmp Ss Tablet] - Social History SMOKING STATUS:: Never smoker Vital Signs Temp Pulse Resp BP Pulse Ox 98.2 F 115 H 18 122/83 H 100 07/14/17 10:55 07/14/17 10:55 07/14/17 10:55 07/14/17 10:55 07/14/17 10:55 Oxygen Flow Rate (L/min) 2 Oxygen Delivery Method Room Air Weight: 79.4 kg Body Mass Index (BMI) 23.7 Laboratory Tests Past 24 Hrs 07/14/17 07/14/17 06:20 06:20 WBC 4.1 L RBC 5.02 Hgb 14.3 Hct 44.2 MCV 88.0 MCH 28.5 MCHC 32.4 RDW 14.0 RDW Differential 44.5 H Plt Count 162 MPV 10.7 Neut % (Auto) Not Reportable Absolute Neuts (auto) 3.4 Absolute Lymphs (auto) 0.29 L Total Counted 100 Neutrophils % (Manual) 78 H Band Neutrophils % 6 H Lymphocytes % (Manual) 7 L Monocytes % (Manual) 8 Metamyelocytes % 1 Diff Path Review Reviewed Platelet Estimate ADEQUATE RBC Morphology NORM C+C Sodium 140 Potassium 3.9 Chloride 111 H Carbon Dioxide 21.0 Anion Gap 8 BUN 15 Creatinine 1.62 H Estim Creat Clear Calc 59.88 Est GFR (MDRD) Af Amer 58 L Est GFR (MDRD) Non-Af 48 L BUN/Creatinine Ratio 9.3 L Glucose 124 H Calcium 7.5 L - Other Studies Radiology: [] reviewed Other Studies: [] Route of nutrition/ use of supplements: [] Nutritional Intake: [] IV Site: [] Ga Catheter: [] - Physical Exam General: Alert, Cooperative, No apparent distress HEENT: Atraumatic, PERRLA, EOMI Neck: Supple, No Nodes Lungs: Clear to auscultation, Normal air movement Cardiovascular: Regular rate, Regular Rhythm Abdomen: Bowel Sounds Present, Non-Distended, Tender - mild soreness Extremities: No edema Skin: No rashes IV Site: Peripheral, without redness Musculoskeletal: No Tenderness to Palpation of Joints or Extremities - Assessment/Plan Antibiotics: [] Assessment/Plan: [] Active and Suspected Problems Acute UTI (Acute) GNR pyelonephritis - GNR in urine, UA with heavy pyuria, and associated fever, tachypnea, tachycardia, nausea, and immunosuppression. Cont iv ceftriaxone. Will order abd u/s to eval transplanted kidney. Kidney transplant - cont bactrim prophylaxis Thank you, will follow.
--- NOTE | 2017-07-14 13:39 | CASEMGMT ---
See RN CM Assessment Link. DC PLAN: home on discharge. Mother states Dr. Bella was going to make CCN referral for pt and she requested this be completed in hospital. Referral ordered, message left with CCN. Natacha ALONZO RN ACM
--- NOTE | 2017-07-14 17:13 | CHAPLAIN ---
Type of Pastoral Visit _x__ Initial Visit ___ Follow-up Visit ___ On-call Visit ___ General Patient Visit ___ Spiritual Assessment ___ Family Conference ___ Bereavement ___ Rapid Response ___ Code Blue ___ Other (describe below) Pastoral Care Referral From _x__ Patient ___ Family ___ Nurse ___ Physician ___ Online Marketing Analyst ___ [place] Operator ___ Other (describe below) Sacrament/Intervention _x__ Active listening ___ Anointing ___ Orthodox ___ Bereavement ___ Communion ___ [place] exploration ___ _x__ Life review _x__ Prayer ___ Reconciliation ___ Sacrament of Sick _x__ Supportive presence ___ Wedding ___ Other (describe below) Pastoral Comments patient admits to fears about his transplant and current health;
[2017-07-14] MEDS: amLODIPine 5 MG Tablet PO (21:24)
[2017-07-15] MEDS: Acetaminophen 325 MG Tablet 650 MG PO (00:38)
[2017-07-15 00:40] VITALS: TEMP 38.7
[2017-07-15 02:35] VITALS: BP 106/63; PULSE 86; RESP 16; TEMP 37.4; O2SAT 98
[2017-07-15] MEDS: oxyCODONE 5 MG Tablet PO (05:59)
[2017-07-15] MEDS: Ondansetron 4 MG/2 ML Vial IV (05:59)
[2017-07-15 06:23] LABS: Anion Gap 9 (5-15); BUN 18 mg/dL (7-18); BUN/Creat Ratio 11.7 RATIO (10-20); Calcium,Total 7.5 mg/dL (8.5-10.1); Chloride 112 mmol/L (98-107); Creatinine, Serum 1.54 mg/dL (0.70-1.30); EST Glomerular Filtration Rate 51 mL/min (>60); Est Glom Filt Rate - Afr Amer 62 mL/min (>60); Estimated Creatinine Clearance 62.99 ml/min; Glucose 101 mg/dL (74-106); Magnesium 1.8 mg/dL (1.6-2.6); Phosphorus 1.8 mg/dL (2.5-4.9); Sodium Level 140 mmol/L (136-145)
[2017-07-15 06:31] LABS: Hematocrit 40.8 % (40-54); Hemoglobin 13.2 g/dl (13.0-16.5); Mean Corp Hgb Conc 32.4 g/gl (32-36); Mean Corpuscular Hgb 28.7 pg (27.0-32.0); Mean Corpuscular Volume 88.7 fL (80-94); Mean Platelet Vol. 10.7 fl (6.2-12.0); Platelet Count 125 K/mm3 (150-450); RBC Distribution Width CV 14.1 % (11.6-14.6); RBC Distribution Width SD 45.1 fl (35.1-43.9); White Blood Count 6.3 K/mm3 (4.4-11.0)
[2017-07-15] MEDS: 0.9% Normal Saline 1,000 ML 150 ML IV ×3 (06:33→20:52)
[2017-07-15 06:34] LABS: Differential Indicated MANUAL DIFF; POSITIVE COUNT YES; POSITIVE DIFFERENTIAL NO; POSITIVE MORPHOLOGY YES
[2017-07-15 07:09] LABS: Lymphocyte 13 % (19-41); Monocyte 5 % (0-10); Neutrophil-Band 11 % (0-5); Neutrophil-Segmented 71 % (47-70); Total Cells Counted 100 (MANUAL DIFF)
[2017-07-15 07:10] LABS: Red Cell Morphology NORM C+C NORMAL (NORM C&C)
[2017-07-15 07:11] LABS: Platelet Estimate MOD DEC (ADEQ)
[2017-07-15 07:13] LABS: Absolute Lymphocyte Count 0.82 X10^3/ul (0.83-4.51); Absolute Neutrophil Count 5.2 X10^3/uL (2.0-7.7)
[2017-07-15 08:30] VITALS: BP 116/69; PULSE 93; RESP 16; TEMP 36.9; O2SAT 95
[2017-07-15] MEDS: Smz/Tmp Ds Tablet 0.5 TABLET PO (08:55)
[2017-07-15] MEDS: Tacrolimus Anhydrous 1 MG Capsule 2 MG PO ×2 (09:02→20:52)
[2017-07-15] MEDS: Mycophenolate Mofetil 250 MG Capsule 500 MG PO ×2 (09:03→20:53)
--- NOTE | 2017-07-15 09:56 | PCM.CONS.R ---
Problem List (1) Kidney transplant recipient Status: Acute (2) CKD (chronic kidney disease), stage III Status: Chronic (3) Acute UTI Status: Acute Consultation - Renal PCP/ Referring MD: Requesting physician: [] Primary care physician: Mike Bella - History of Present Illness History of Present Illness: The patient is a 52 year old M past medical history of end-stage renal disease status post unrelated kidney transplant in March 2016 , history of neurogenic bladder with self-catheterization , DVT , nystagmus . Patient was admitted with high fever of 102 due to UTI . Patient has been doing less frequent self-catheterization. Is on CellCept 500 mg p.o. twice a day and Prograf 2 mg twice a day. Patient is maintaining kidney function at baseline. I was consulted to help in the management of chronic kidney disease in a renal transplant recipient. Patient denies taking NSAIDs. No IV contrast exposure. Review of systems: 12 systems review is negative except for abdominal pain in the suprapubic area and right lower abdominal quadrant] - Allergies Allergies: Allergies No Known Allergies Allergy (Verified 07/13/17 21:32) - Current Medications Current Medications: Current Medications Acetaminophen (Tylenol) 650 mg PO Q6H PRN PRN PRN Reason: Mild Pain (scale 0-3)/T>100.7 Last Admin: 07/15/17 00:38 Dose: 650 mg Al Hydroxide/Mg Hydroxide (Mylanta Ii) 30 ml PO Q6H PRN PRN PRN Reason: Gastric burning Amlodipine Besylate (Norvasc) 5 mg PO 2100 [facility] Last Admin: 07/14/17 21:24 Dose: 5 mg Heparin Sodium (Porcine) (Heparin Na) 5,000 unit SC BID [facility] Last Admin: 07/15/17 09:02 Dose: 5,000 units Hydralazine HCl (Apresoline) 10 mg IV Q4H PRN PRN PRN Reason: SBP > 160 Sodium Chloride () 1,000 mls @ 150 mls/hr IV .Q6H40M [facility] Last Admin: 07/15/17 06:33 Dose: 150 mls/hr Meropenem 500 mg/ Sodium (Chloride) 60 mls @ 100 mls/hr IV Q6 [facility] Last Admin: 07/15/17 05:59 Dose: 100 mls/hr Magnesium Hydroxide (Milk Of Magnesia) 30 ml PO DAILY PRN PRN PRN Reason: Constipation Morphine Sulfate (Morphine) 2 - 4 mg IV Q3H PRN PRN PRN Reason: Severe Pain (pain scale 6-10) Last Admin: 07/14/17 15:55 Dose: 2 mg Morphine Sulfate (Morphine) 1 - 2 mg IV Q4H PRN PRN PRN Reason: Moderate Pain (pain scale 4-5) Morphine Sulfate (Morphine) 2 - 4 mg IV Q3H PRN PRN PRN Reason: Severe Pain (pain scale 6-10) Mycophenolate Mofetil (Cellcept) 500 mg PO BID [facility] Last Admin: 07/15/17 09:03 Dose: 500 mg Ondansetron HCl (Zofran) 4 mg IV Q8H PRN PRN PRN Reason: NAUSEA Last Admin: 07/15/17 05:59 Dose: 4 mg Oxycodone HCl (Oxyir) 5 mg PO Q4H PRN PRN PRN Reason: Moderate Pain (pain scale 4-5) Last Admin: 07/15/17 05:59 Dose: 5 mg Promethazine HCl (Phenergan (Ll)) 12.5 mg IV Q6H PRN PRN PRN Reason: NAUSEA/VOMITING Last Admin: 07/14/17 08:08 Dose: 12.5 mg Sodium Chloride () 5 - 30 ml IV UD PRN PRN Reason: SALINE FLUSH Last Admin: 07/14/17 15:55 Dose: 10 ml Tacrolimus (Prograf) 2 mg PO BID [facility] Last Admin: 07/15/17 09:02 Dose: 2 mg Trimethoprim/Sulfamethox[facility] ([facility]rim [facility]) [facility] Last Admin: 07/15/17 08:55 Dose: 0.5 tablet - Past Medical History Past Medical History (Chronic Problems): Chronic Problems CKD (chronic kidney disease), stage III (Chronic) Congenital nystagmus (Chronic) Mild MRDD (Chronic) DVT (deep venous thrombosis) (Chronic) Renal transplant, status post (Chronic) Neurogenic bladder disorder (Chronic) managed with cic - Past Surgical History Surgical History: - - Right kidney transplant [facility], dialysis access prior. - Social History Smoking Status: Never smoker Alcohol: None Drugs: None - Family History Maternal History Items: Hypertension Paternal History Items: Diabetes Patient Problems: Active and Suspected Problems Acute UTI (Acute) Kidney transplant recipient (Acute) - Physical Exam General: Alert, Oriented x3 HEENT: Atraumatic, - - Weakness Oral: Moist Mucosa Neck: Supple, No JVD Lungs: Clear to auscultation, Normal air movement, No rhonchi, No wheeze, No rales Cardiovascular: Regular rate, Regular Rhythm, Normal S1, Normal S2, No murmurs Abdomen: Bowel Sounds Present, Soft, - - Suprapubic and right lower quadrant tenderness Extremities: No clubbing, No cyanosis, No edema Skin: No rashes Musculoskeletal: No Tenderness to Palpation of Joints or Extremities Lymphatic: No Cervical, Supraclavicular, or Inguinal Adenopathy Psych/Mental Status: Normal Affect Vital Signs Temp Pulse Resp BP Pulse Ox 98.4 F 93 16 116/69 95 07/15/17 08:30 07/15/17 08:30 07/15/17 08:30 07/15/17 08:30 07/15/17 08:30 Oxygen Flow Rate (L/min) 2 Oxygen Delivery Method Room Air Weight: 79.4 kg Body Mass Index (BMI) 23.7 Intake and Output for Last 24 Hours 07/13/17 07/14/17 07/15/17 23:59 23:59 23:59 Intake Total 3756 / 3756 2017 Output Total 1480 / 1480 1075 / 1075 Balance 2276 / 2276 943 / 943 Laboratory Tests Past 24 Hrs 07/14/17 07/15/17 07/15/17 06:20 05:43 05:43 WBC 6.3 RBC 4.60 Hgb 13.2 Hct 40.8 MCV 88.7 MCH 28.7 MCHC 32.4 RDW 14.1 RDW Differential 45.1 H Plt Count 125 L MPV 10.7 Neut % (Auto) Not Reportable Absolute Neuts (auto) 5.2 Absolute Lymphs (auto) 0.82 L Total Counted 100 Neutrophils % (Manual) 71 H Band Neutrophils % 11 H Lymphocytes % (Manual) 13 L Monocytes % (Manual) 5 Diff Path Review Reviewed August foll Platelet Estimate MOD DEC RBC Morphology NORM C+C Sodium 140 Potassium 4.0 Chloride 112 H Carbon Dioxide 19.0 L Anion Gap 9 BUN 18 Creatinine 1.54 H Estim Creat Clear Calc 62.99 Est GFR (MDRD) Af Amer 62 Est GFR (MDRD) Non-Af 51 L BUN/Creatinine Ratio 11.7 Glucose 101 Calcium 7.5 L Phosphorus 1.8 L Magnesium 1.8 Assessment/Plan Active and Suspected Problems Acute UTI (Acute) Kidney transplant recipient (Acute) 1-chronic kidney disease stage III. Baseline creatinine around 1.6. Creatinine is stable. Electrolytes are okay. 2-end-stage renal disease S/P DULKT in 2016: Immunosuppressants : CellCept 500 mg twice a day and Prograf 2 mg twice a day. Please continue the same for now. 3-urinary tract infection: ID is following. On meropenem. Patient still has fever and abdominal pain. Patient is going to have a CAT scan to rule out pyelonephritis Thank you for the consult. I will continue to follow. Discussed with Dr.Sementi Darin Williamson MD
--- NOTE | 2017-07-15 10:07 | CON.PCM_ITS ---
Problem List (1) Kidney transplant recipient Status: Acute (2) CKD (chronic kidney disease), stage III Status: Chronic (3) Acute UTI Status: Acute Consultation - Renal PCP/ Referring MD: Requesting physician: [] Primary care physician: Mike Bella - History of Present Illness History of Present Illness: The patient is a 52 year old M past medical history of end-stage renal disease status post unrelated kidney transplant in March 2016 , history of neurogenic bladder with self-catheterization , DVT , nystagmus . Patient was admitted with high fever of 102 due to UTI . Patient has been doing less frequent self-catheterization. Is on CellCept 500 mg p.o. twice a day and Prograf 2 mg twice a day. Patient is maintaining kidney function at baseline. I was consulted to help in the management of chronic kidney disease in a renal transplant recipient. Patient denies taking NSAIDs. No IV contrast exposure. Review of systems: 12 systems review is negative except for abdominal pain in the suprapubic area and right lower abdominal quadrant] - Allergies Allergies: Allergies No Known Allergies Allergy (Verified 07/13/17 21:32) - Current Medications Current Medications: Current Medications Acetaminophen (Tylenol) 650 mg PO Q6H PRN PRN PRN Reason: Mild Pain (scale 0-3)/T>100.7 Last Admin: 07/15/17 00:38 Dose: 650 mg Al Hydroxide/Mg Hydroxide (Mylanta Ii) 30 ml PO Q6H PRN PRN PRN Reason: Gastric burning Amlodipine Besylate (Norvasc) 5 mg PO 2100 [facility] Last Admin: 07/14/17 21:24 Dose: 5 mg Heparin Sodium (Porcine) (Heparin Na) 5,000 unit SC BID [facility] Last Admin: 07/15/17 09:02 Dose: 5,000 units Hydralazine HCl (Apresoline) 10 mg IV Q4H PRN PRN PRN Reason: SBP > 160 Sodium Chloride () 1,000 mls @ 150 mls/hr IV .Q6H40M [facility] Last Admin: 07/15/17 06:33 Dose: 150 mls/hr Meropenem 500 mg/ Sodium (Chloride) 60 mls @ 100 mls/hr IV Q6 [facility] Last Admin: 07/15/17 05:59 Dose: 100 mls/hr Magnesium Hydroxide (Milk Of Magnesia) 30 ml PO DAILY PRN PRN PRN Reason: Constipation Morphine Sulfate (Morphine) 2 - 4 mg IV Q3H PRN PRN PRN Reason: Severe Pain (pain scale 6-10) Last Admin: 07/14/17 15:55 Dose: 2 mg Morphine Sulfate (Morphine) 1 - 2 mg IV Q4H PRN PRN PRN Reason: Moderate Pain (pain scale 4-5) Morphine Sulfate (Morphine) 2 - 4 mg IV Q3H PRN PRN PRN Reason: Severe Pain (pain scale 6-10) Mycophenolate Mofetil (Cellcept) 500 mg PO BID [facility] Last Admin: 07/15/17 09:03 Dose: 500 mg Ondansetron HCl (Zofran) 4 mg IV Q8H PRN PRN PRN Reason: NAUSEA Last Admin: 07/15/17 05:59 Dose: 4 mg Oxycodone HCl (Oxyir) 5 mg PO Q4H PRN PRN PRN Reason: Moderate Pain (pain scale 4-5) Last Admin: 07/15/17 05:59 Dose: 5 mg Promethazine HCl (Phenergan (Ll)) 12.5 mg IV Q6H PRN PRN PRN Reason: NAUSEA/VOMITING Last Admin: 07/14/17 08:08 Dose: 12.5 mg Sodium Chloride () 5 - 30 ml IV UD PRN PRN Reason: SALINE FLUSH Last Admin: 07/14/17 15:55 Dose: 10 ml Tacrolimus (Prograf) 2 mg PO BID [facility] Last Admin: 07/15/17 09:02 Dose: 2 mg Trimethoprim/Sulfamethox[facility] ([facility]) [facility] Last Admin: 07/15/17 08:55 Dose: 0.5 tablet - Past Medical History Past Medical History (Chronic Problems): Chronic Problems CKD (chronic kidney disease), stage III (Chronic) Congenital nystagmus (Chronic) Mild MRDD (Chronic) DVT (deep venous thrombosis) (Chronic) Renal transplant, status post (Chronic) Neurogenic bladder disorder (Chronic) managed with cic - Past Surgical History Surgical History: - - Right kidney transplant [facility], dialysis access prior. - Social History Smoking Status: Never smoker Alcohol: None Drugs: None - Family History Maternal History Items: Hypertension Paternal History Items: Diabetes Patient Problems: Active and Suspected Problems Acute UTI (Acute) Kidney transplant recipient (Acute) - Physical Exam General: Alert, Oriented x3 HEENT: Atraumatic, - - Weakness Oral: Moist Mucosa Neck: Supple, No JVD Lungs: Clear to auscultation, Normal air movement, No rhonchi, No wheeze, No rales Cardiovascular: Regular rate, Regular Rhythm, Normal S1, Normal S2, No murmurs Abdomen: Bowel Sounds Present, Soft, - - Suprapubic and right lower quadrant tenderness Extremities: No clubbing, No cyanosis, No edema Skin: No rashes Musculoskeletal: No Tenderness to Palpation of Joints or Extremities Lymphatic: No Cervical, Supraclavicular, or Inguinal Adenopathy Psych/Mental Status: Normal Affect Vital Signs Temp Pulse Resp BP Pulse Ox 98.4 F 93 16 116/69 95 07/15/17 08:30 07/15/17 08:30 07/15/17 08:30 07/15/17 08:30 07/15/17 08:30 Oxygen Flow Rate (L/min) 2 Oxygen Delivery Method Room Air Weight: 79.4 kg Body Mass Index (BMI) 23.7 Intake and Output for Last 24 Hours 07/13/17 07/14/17 07/15/17 23:59 23:59 23:59 Intake Total 3756 / 3756 2017 Output Total 1480 / 1480 1075 / 1075 Balance 2276 / 2276 943 / 943 Laboratory Tests Past 24 Hrs 07/14/17 07/15/17 07/15/17 06:20 05:43 05:43 WBC 6.3 RBC 4.60 Hgb 13.2 Hct 40.8 MCV 88.7 MCH 28.7 MCHC 32.4 RDW 14.1 RDW Differential 45.1 H Plt Count 125 L MPV 10.7 Neut % (Auto) Not Reportable Absolute Neuts (auto) 5.2 Absolute Lymphs (auto) 0.82 L Total Counted 100 Neutrophils % (Manual) 71 H Band Neutrophils % 11 H Lymphocytes % (Manual) 13 L Monocytes % (Manual) 5 Diff Path Review Reviewed August foll Platelet Estimate MOD DEC RBC Morphology NORM C+C Sodium 140 Potassium 4.0 Chloride 112 H Carbon Dioxide 19.0 L Anion Gap 9 BUN 18 Creatinine 1.54 H Estim Creat Clear Calc 62.99 Est GFR (MDRD) Af Amer 62 Est GFR (MDRD) Non-Af 51 L BUN/Creatinine Ratio 11.7 Glucose 101 Calcium 7.5 L Phosphorus 1.8 L Magnesium 1.8 Assessment/Plan Active and Suspected Problems Acute UTI (Acute) Kidney transplant recipient (Acute) 1-chronic kidney disease stage III. Baseline creatinine around 1.6. Creatinine is stable. Electrolytes are okay. 2-end-stage renal disease S/P DULKT in 2016: Immunosuppressants : CellCept 500 mg twice a day and Prograf 2 mg twice a day. Please continue the same for now. 3-urinary tract infection: ID is following. On meropenem. Patient still has fever and abdominal pain. Patient is going to have a CAT scan to rule out pyelonephritis Thank you for the consult. I will continue to follow. Discussed with Dr.Sementi Darin Williamson MD
--- NOTE | 2017-07-15 10:23 | PCM.PN.ID ---
Patient Problems: Active and Suspected Problems Acute UTI (Acute) Kidney transplant recipient (Acute) Subjective: Still with fever and abd pain, feeling about the same. - Physical Exam General: Alert, Cooperative, No apparent distress Lungs: Clear to auscultation, Normal air movement Cardiovascular: Regular rate, Regular Rhythm Abdomen: Soft, Non-Distended, Tender Skin: No rashes Vital Signs Temp Pulse Resp BP Pulse Ox 98.4 F 93 16 116/69 95 07/15/17 08:30 07/15/17 08:30 07/15/17 08:30 07/15/17 08:30 07/15/17 08:30 Oxygen Flow Rate (L/min) 2 Oxygen Delivery Method Room Air Weight: 79.4 kg Body Mass Index (BMI) 23.7 Intake and Output for Last 24 Hours 07/13/17 07/14/17 07/15/17 23:59 23:59 23:59 Intake Total 3756 / 3756 2017 Output Total 1480 / 1480 1075 / 1075 Balance 2276 / 2276 943 / 943 Laboratory Tests Past 24 Hrs 07/14/17 07/15/17 07/15/17 06:20 05:43 05:43 WBC 6.3 RBC 4.60 Hgb 13.2 Hct 40.8 MCV 88.7 MCH 28.7 MCHC 32.4 RDW 14.1 RDW Differential 45.1 H Plt Count 125 L MPV 10.7 Neut % (Auto) Not Reportable Absolute Neuts (auto) 5.2 Absolute Lymphs (auto) 0.82 L Total Counted 100 Neutrophils % (Manual) 71 H Band Neutrophils % 11 H Lymphocytes % (Manual) 13 L Monocytes % (Manual) 5 Diff Path Review Reviewed May foll Platelet Estimate MOD DEC RBC Morphology NORM C+C Sodium 140 Potassium 4.0 Chloride 112 H Carbon Dioxide 19.0 L Anion Gap 9 BUN 18 Creatinine 1.54 H Estim Creat Clear Calc 62.99 Est GFR (MDRD) Af Amer 62 Est GFR (MDRD) Non-Af 51 L BUN/Creatinine Ratio 11.7 Glucose 101 Calcium 7.5 L Phosphorus 1.8 L Magnesium 1.8 Route of nutrition/ use of supplements: [] Nutritional Intake: [] IV Site: [] Ga Catheter: [] - Assessment/Plan Antibiotics: [] Assessment/Plan: [] Active and Suspected Problems Acute UTI (Acute) GNR pyelonephritis - GNR in urine, UA with heavy pyuria, and associated fever, tachypnea, tachycardia, nausea, and immunosuppression. Still with fever and abd pain, unimproved. With h/o cdiff, tried to keep abx narrow, but with ongoing symptoms, agree with broadening to meropenem to cover empirically for PsA and ESBL. Would check ct abd/pelvis without contrast. Kidney transplant - cont bactrim prophylaxis D/w Dr. Metzger, will follow.
[2017-07-15 14:30] VITALS: BP 119/78; PULSE 96; RESP 16; TEMP 37.1; O2SAT 95
[2017-07-15 14:56] LABS: Pathologist Review Reviewed
[2017-07-15 16:27] VITALS: O2SAT 95
[2017-07-15 20:45] VITALS: BP 124/78; PULSE 83; RESP 16; TEMP 37.1; O2SAT 93
[2017-07-15] MEDS: 0.9% NaCl Peripheral Flush Adult/Peds IV ×2 (20:52→22:57)
[2017-07-15] MEDS: amLODIPine 5 MG Tablet PO (20:52)
--- NOTE | 2017-07-15 22:04 | PN_ITS ---
Patient Problems: Active and Suspected Problems Acute UTI (Acute) Kidney transplant recipient (Acute) Subjective: Tmax over the past 4 hours is 102.9?F. He has been afebrile since 0235 today. Vital signs are stable. He is 93-90% saturated on room air. He took 940 cc p.o. today. All lab was personally reviewed. White blood cell count is 6.3 today with 71% neutrophils. Serum bicarb is mildly decreased at 19. BUN is 18 with a creatinine of 1.54 which is down from 1.62 on 07/14/2017. Phosphorus is low at 1.8 and the magnesium is 1.8, up from 1.4 following supplementation. Calcium is mildly decreased Urine culture is positive for Enterobacter Aerogenes and he is sensitive to Zosyn, fluoroquinolones, gentamicin, imipenem and cefepime. He is c/o abdominal pain today. No diarrhea. No N/V. No cough and no SOB - Physical Exam General: Alert, Cooperative, - - He is holding his stomach HEENT: Atraumatic, PERRLA Oral: Moist Mucosa Neck: Supple Lungs: Clear to auscultation, No rhonchi, No wheeze, No rales Cardiovascular: Regular rate, Regular Rhythm, Normal S1, Normal S2, No Gallop Abdomen: Bowel Sounds Present, Soft, Distended - and somewhat tympanic, Tender - in the right side of the abdomen Extremities: No clubbing, No cyanosis, No edema Skin: No rashes Neurological: Cranial nerves II-XII grossly intact, Neuro grossly intact Psych/Mental Status: Appropriate Vital Signs Temp Pulse Resp BP Pulse Ox 98.8 F 83 16 124/78 H 93 07/15/17 20:45 07/15/17 20:45 07/15/17 20:45 07/15/17 20:45 07/15/17 20:45 Oxygen Flow Rate (L/min) 2 Oxygen Delivery Method Room Air Weight: 175 lb 0.752 oz Body Mass Index (BMI) 23.7 Intake and Output for Last 24 Hours 07/13/17 07/14/17 07/15/17 23:59 23:59 23:59 Intake Total 3756 / 3756 3982 / 3982 Output Total 1480 / 1480 2075 / 2075 Balance 2276 / 2276 1907 / 1907 Laboratory Tests Past 24 Hrs 07/15/17 07/15/17 05:43 05:43 WBC 6.3 RBC 4.60 Hgb 13.2 Hct 40.8 MCV 88.7 MCH 28.7 MCHC 32.4 RDW 14.1 RDW Differential 45.1 H Plt Count 125 L MPV 10.7 Neut % (Auto) Not Reportable Absolute Neuts (auto) 5.2 Absolute Lymphs (auto) 0.82 L Total Counted 100 Neutrophils % (Manual) 71 H Band Neutrophils % 11 H Lymphocytes % (Manual) 13 L Monocytes % (Manual) 5 Diff Path Review Reviewed Platelet Estimate MOD DEC RBC Morphology NORM C+C Sodium 140 Potassium 4.0 Chloride 112 H Carbon Dioxide 19.0 L Anion Gap 9 BUN 18 Creatinine 1.54 H Estim Creat Clear Calc 62.99 Est GFR (MDRD) Af Amer 62 Est GFR (MDRD) Non-Af 51 L BUN/Creatinine Ratio 11.7 Glucose 101 Calcium 7.5 L Phosphorus 1.8 L Magnesium 1.8 Assessment/Plan Active and Suspected Problems Acute UTI (Acute) Kidney transplant recipient (Acute) Impressions 1. complicated UTI - due to Enterobacter Aerogenes in an immunocompromised pt with a hx of a renal transplant who self catheterizes at home. ? whether this 52 YO man with MRDD needs more supervision at home....he states he does not self cath as often as he should because his sister forgets to remind him..he lives by himself. He works fulltime at the [employer] 2. CRF stage III after a kidney transplant 3. chronic immunosuppressive therapy with CellCept and Tacrolimus 4. Neurogenic bladder 5. History of DVT 6. History of Clostridium difficile enterocolitis in the past with antibiotics 7. Thrombocytopenia 8. Metabolic acidosis 9. Hypophosphatemia The Enterobacter is sensitive to cefepime so will discontinue meropenem and start cefepime once daily. CT scan of the abdomen and pelvis without contrast for abdominal pain. Recheck lab in the a.m. 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 Will discuss with the landscape architect and planner Code Visit Inpatient E&M: 06274 Subs Hosp L2
[2017-07-16 02:45] VITALS: BP 111/67; PULSE 83; RESP 16; TEMP 37.6; O2SAT 97
[2017-07-16] MEDS: 0.9% Normal Saline 1,000 ML 150 ML IV ×3 (03:24→20:56)
--- NOTE | 2017-07-16 05:55 | CT_ITS ---
STUDY: CT ABDOMEN AND PELVIS WITHOUT CONTRAST REASON FOR EXAM: Male, 52 years old. Urinary tract infection. Kidney transplant. Sepsis. RADIATION DOSAGE (If Supplied By Facility): CTDIvol = ( 7.07 ) mGy, DLP = ( 381.65 ) mGycm TECHNIQUE: Transaxial images were obtained from the dome of the diaphragm to the symphysis pubis without oral contrast, and without intravenous contrast. Sagittal and coronal images were reconstructed. Individualized dose optimization techniques were used for this CT. COMPARISON: December 09, 2016 CT. July 12, 2017 ultrasound. FINDINGS: Left lower lung airspace consolidation. Right lower lung atelectasis. The visualized portions of the heart are within normal limits. There is hepatomegaly with diffuse hepatic enlargement. Normal gallbladder and extrahepatic biliary system. Normal spleen. Normal pancreas. Normal bilateral adrenal glands. There is severe cortical atrophy of the right kidney, consistent with chronic medical renal disease. Small cysts. Stable moderate hydronephrosis with dilatation of the right ureter. There is severe cortical atrophy of the left kidney, consistent with chronic medical renal disease. There is a transplant kidney in the right lower quadrant. There is perinephric edema and stranding. No hydronephrosis of the transplant kidney. Normal visualized stomach. Normal small intestine. Abundant stool in the colon. There is non-visualization of the appendix. Normal abdominal aorta. Normal inferior vena cava. Normal retroperitoneum. Ga catheter in the urinary bladder. There is diffuse wall thickening of the urinary bladder. Normal abdominal wall. Normal osseous structures. CT/Abdomen/Pelvis without Cont IMPRESSION: Transplant kidney in the right lower quadrant. There is perinephric edema of the transplanted kidney. There is no hydronephrosis of the transplant kidney. There is stable hydronephrosis of atrophic right kidney. There is wall thickening of the urinary bladder. Left lower lung pneumonia. Electronically Signed: Miah Barrios MD at 11:02 EDT , Service support ,
[2017-07-16 06:28] LABS: Differential Indicated MANUAL DIFF; Hematocrit 39.1 % (40-54); Hemoglobin 12.5 g/dl (13.0-16.5); Mean Corpuscular Hgb 28.2 pg (27.0-32.0); Mean Corpuscular Volume 88.3 fL (80-94); POSITIVE COUNT YES; POSITIVE DIFFERENTIAL NO; POSITIVE MORPHOLOGY YES; Platelet Count 121 K/mm3 (150-450); RBC Distribution Width SD 44.9 fl (35.1-43.9); Red Blood Count 4.43 M/mm3 (4.6-6.2)
[2017-07-16 06:50] LABS: ALB/GLOB Ratio 0.9 RATIO (0.9-2.4); AST(SGOT) 25 U/L (15-37); Alanine Aminotransfer ALT/SGPT 24 U/L (16-61); Albumin, Serum 2.7 g/dL (3.2-5.0); Alkaline Phosphatase 42 U/L (45-117); Anion Gap 9 (5-15); BUN 14 mg/dL (7-18); BUN/Creat Ratio 11.4 RATIO (10-20); Calcium,Total 7.3 mg/dL (8.5-10.1); Chloride 113 mmol/L (98-107); Creatinine, Serum 1.23 mg/dL (0.70-1.30); EST Glomerular Filtration Rate 66 mL/min (>60); Est Glom Filt Rate - Afr Amer 80 mL/min (>60); Estimated Creatinine Clearance 78.86 ml/min; Globulin 3.1 g/dL (2.2-4.2); Glucose 94 mg/dL (74-106); Magnesium 1.7 mg/dL (1.6-2.6); Phosphorus 2.2 mg/dL (2.5-4.9); Potassium 4.1 mmol/L (3.5-5.1); Protein, Total 5.8 g/dL (6.4-8.2); Sodium Level 141 mmol/L (136-145)
[2017-07-16 06:58] LABS: Eosinophil 1 % (0-5); Lymphocyte 12 % (19-41); Metamyelocyte 2 % (0-1); Monocyte 6 % (0-10); Neutrophil-Band 6 % (0-5); Neutrophil-Segmented 73 % (47-70); Total Cells Counted 100 (MANUAL DIFF)
[2017-07-16 06:59] LABS: Platelet Estimate ADEQUATE (ADEQ); Red Cell Morphology NORM C+C NORMAL (NORM C&C)
[2017-07-16 07:02] LABS: Absolute Lymphocyte Count 0.72 X10^3/ul (0.83-4.51); Absolute Neutrophil Count 4.4 X10^3/uL (2.0-7.7)
[2017-07-16 08:09] VITALS: O2SAT 96
[2017-07-16] MEDS: Tacrolimus Anhydrous 1 MG Capsule 2 MG PO ×2 (08:42→20:56)
[2017-07-16] MEDS: Smz/Tmp Ds Tablet 0.5 TABLET PO (08:43)
[2017-07-16] MEDS: Mycophenolate Mofetil 250 MG Capsule 500 MG PO ×2 (08:43→20:56)
[2017-07-16 08:45] VITALS: BP 111/70; PULSE 89; RESP 18; TEMP 36.7; O2SAT 94
[2017-07-16] MEDS: 0.9% NaCl Peripheral Flush Adult/Peds IV (08:51)
--- NOTE | 2017-07-16 13:03 | PCM.PN.ID ---
Patient Problems: Active and Suspected Problems Acute UTI (Acute) Kidney transplant recipient (Acute) Subjective: Feeling better, no fever, still some abd pain. - Physical Exam General: Alert, Cooperative Lungs: Clear to auscultation, Normal air movement Cardiovascular: Regular rate, Regular Rhythm Abdomen: Soft, Non-Distended, Tender - mild Skin: No rashes Vital Signs Temp Pulse Resp BP Pulse Ox 98.1 F 89 18 111/70 94 07/16/17 08:45 07/16/17 08:45 07/16/17 08:45 07/16/17 08:45 07/16/17 08:45 Oxygen Flow Rate (L/min) 2 Oxygen Delivery Method Room Air Weight: 79.4 kg Body Mass Index (BMI) 23.7 Intake and Output for Last 24 Hours 07/14/17 07/15/17 07/16/17 23:59 23:59 23:59 Intake Total 3756 / 3756 5152 / 5152 1070 / 1070 Output Total 1480 / 1480 3275 / 3275 1000 / 1000 Balance 2276 / 2276 1877 / 1877 70 / 70 Laboratory Tests Past 24 Hrs 07/15/17 07/16/17 07/16/17 05:43 05:55 05:55 WBC 6.0 RBC 4.43 L Hgb 12.5 L Hct 39.1 L MCV 88.3 MCH 28.2 MCHC 32.0 RDW 14.0 RDW Differential 44.9 H Plt Count 121 L MPV 11.0 Neut % (Auto) Not Reportable Absolute Neuts (auto) 4.4 Absolute Lymphs (auto) 0.72 L Total Counted 100 Neutrophils % (Manual) 73 H Band Neutrophils % 6 H Lymphocytes % (Manual) 12 L Monocytes % (Manual) 6 Eosinophils % (Manual) 1 Metamyelocytes % 2 H Diff Path Review Reviewed May foll Platelet Estimate ADEQUATE RBC Morphology NORM C+C Sodium 141 Potassium 4.1 Chloride 113 H Carbon Dioxide 19.0 L Anion Gap 9 BUN 14 Creatinine 1.23 Estim Creat Clear Calc 78.86 Est GFR (MDRD) Af Amer 80 Est GFR (MDRD) Non-Af 66 BUN/Creatinine Ratio 11.4 Glucose 94 Calcium 7.3 L Phosphorus 2.2 L Magnesium 1.7 Total Bilirubin 1.00 AST 25 ALT 24 Alkaline Phosphatase 42 L Total Protein 5.8 L Albumin 2.7 L Globulin 3.1 Albumin/Globulin Ratio 0.9 Route of nutrition/ use of supplements: [] Nutritional Intake: [] IV Site: [] Ga Catheter: [] - Assessment/Plan Antibiotics: [] Assessment/Plan: [] Active and Suspected Problems Acute UTI (Acute) enterobacter pyelonephritis - Improving. CT consistent with pyelo. Narrow abx to iv cipro. Plan on d/c home on po cipro 500mg bid with stop date 07/25/17. Kidney transplant - cont bactrim prophylaxis D/w family, will follow.
[2017-07-16 13:56] VITALS: BP 114/75; PULSE 95; RESP 18; TEMP 36.3; O2SAT 98
[2017-07-16] MEDS: Ciprofloxacin 400 MG/200 ML BAG 200 MG IV ×2 (13:59→20:56)
--- NOTE | 2017-07-16 17:06 | PCM.PN.REN ---
Patient Problems: Active and Suspected Problems Acute UTI (Acute) Kidney transplant recipient (Acute) Subjective: Feeling better. No fever. Still has some suprapubic pain - Physical Exam General: Alert, Oriented x3, Cooperative HEENT: Atraumatic Oral: Moist Mucosa Neck: Supple, No JVD Lungs: Clear to auscultation Cardiovascular: Regular rate, Regular Rhythm, Normal S1, Normal S2 Abdomen: Bowel Sounds Present, Soft, Tender - suprapubic Extremities: No clubbing, No cyanosis, No edema Skin: No rashes Psych/Mental Status: Normal Affect Vital Signs Temp Pulse Resp BP Pulse Ox 97.4 F L 95 18 114/75 98 07/16/17 13:56 07/16/17 13:56 07/16/17 13:56 07/16/17 13:56 07/16/17 13:56 Oxygen Flow Rate (L/min) 2 Oxygen Delivery Method Room Air Weight: 79.4 kg Body Mass Index (BMI) 23.7 Intake and Output for Last 24 Hours 07/14/17 07/15/17 07/16/17 23:59 23:59 23:59 Intake Total 3756 / 3756 5152 / 5152 1570 / 1570 Output Total 1480 / 1480 3275 / 3275 2200 / 2200 Balance 2276 / 2276 1877 / 1877 -630 / -630 Laboratory Tests Past 24 Hrs 07/16/17 07/16/17 05:55 05:55 WBC 6.0 RBC 4.43 L Hgb 12.5 L Hct 39.1 L MCV 88.3 MCH 28.2 MCHC 32.0 RDW 14.0 RDW Differential 44.9 H Plt Count 121 L MPV 11.0 Neut % (Auto) Not Reportable Absolute Neuts (auto) 4.4 Absolute Lymphs (auto) 0.72 L Total Counted 100 Neutrophils % (Manual) 73 H Band Neutrophils % 6 H Lymphocytes % (Manual) 12 L Monocytes % (Manual) 6 Eosinophils % (Manual) 1 Metamyelocytes % 2 H Diff Path Review May foll Platelet Estimate ADEQUATE RBC Morphology NORM C+C Sodium 141 Potassium 4.1 Chloride 113 H Carbon Dioxide 19.0 L Anion Gap 9 BUN 14 Creatinine 1.23 Estim Creat Clear Calc 78.86 Est GFR (MDRD) Af Amer 80 Est GFR (MDRD) Non-Af 66 BUN/Creatinine Ratio 11.4 Glucose 94 Calcium 7.3 L Phosphorus 2.2 L Magnesium 1.7 Total Bilirubin 1.00 AST 25 ALT 24 Alkaline Phosphatase 42 L Total Protein 5.8 L Albumin 2.7 L Globulin 3.1 Albumin/Globulin Ratio 0.9 Medical Necessity - Tobacco Use Smoking Status: Never smoker Tobacco Use: Non-smoker Assessment/Plan Active and Suspected Problems Acute UTI (Acute) Kidney transplant recipient (Acute) 1-chronic kidney disease stage III. Baseline creatinine around 1.3-1.6 Creatinine is better today at 1.2 mg/dl Electrolytes are okay. 2-end-stage renal disease S/P DULKT in 2016: Immunosuppressants : CellCept 500 mg twice a day and Prograf 2 mg twice a day. Please continue the same for now. 3-urinary tract infectionp pyelonephritis: ID is following. UC + for enterococcus Abx was switched to Cipro Will continue to follow. Darin Williamson MD
--- NOTE | 2017-07-16 17:17 | PN_ITS ---
Patient Problems: Active and Suspected Problems Acute UTI (Acute) Kidney transplant recipient (Acute) Subjective: Patient seen and examined. Resting in chair eating dinner in no acute distress. Very pleasant. Continues to complain of abdominal discomfort although improved. States he had a bowel movement this morning. Denies nausea , vomiting. Tolerating oral intake without difficulty. Denies fever, chills. Denies other complaints. - Physical Exam General: Alert, Oriented x3, Cooperative, No apparent distress HEENT: Atraumatic, PERRLA, EOMI, Normocephalic Oral: Moist Mucosa Neck: Supple, No JVD, Negative Carotid Bruits Lungs: Clear to auscultation, Normal air movement Cardiovascular: Regular rate, Regular Rhythm, Normal S1, Normal S2, No murmurs Abdomen: Bowel Sounds Present, Soft, Distended, Tender Extremities: No clubbing, No cyanosis, No edema, Capillary Refill Less than 3 Seconds, - - Right forearm fistulogram Skin: No rashes, No breakdown Musculoskeletal: No Tenderness to Palpation of Joints or Extremities Neurological: Cranial nerves II-XII grossly intact, Neuro grossly intact Psych/Mental Status: Normal Affect, Appropriate Vital Signs Temp Pulse Resp BP Pulse Ox 97.4 F L 95 18 114/75 98 07/16/17 13:56 07/16/17 13:56 07/16/17 13:56 07/16/17 13:56 07/16/17 13:56 Oxygen Flow Rate (L/min) 2 Oxygen Delivery Method Room Air Weight: 79.4 kg Body Mass Index (BMI) 23.7 Intake and Output for Last 24 Hours 07/14/17 07/15/17 07/16/17 23:59 23:59 23:59 Intake Total 3756 / 3756 5152 / 5152 1570 / 1570 Output Total 1480 / 1480 3275 / 3275 2200 / 2200 Balance 2276 / 2276 1877 / 1877 -630 / -630 Laboratory Tests Past 24 Hrs 07/16/17 07/16/17 05:55 05:55 WBC 6.0 RBC 4.43 L Hgb 12.5 L Hct 39.1 L MCV 88.3 MCH 28.2 MCHC 32.0 RDW 14.0 RDW Differential 44.9 H Plt Count 121 L MPV 11.0 Neut % (Auto) Not Reportable Absolute Neuts (auto) 4.4 Absolute Lymphs (auto) 0.72 L Total Counted 100 Neutrophils % (Manual) 73 H Band Neutrophils % 6 H Lymphocytes % (Manual) 12 L Monocytes % (Manual) 6 Eosinophils % (Manual) 1 Metamyelocytes % 2 H Diff Path Review May foll Platelet Estimate ADEQUATE RBC Morphology NORM C+C Sodium 141 Potassium 4.1 Chloride 113 H Carbon Dioxide 19.0 L Anion Gap 9 BUN 14 Creatinine 1.23 Estim Creat Clear Calc 78.86 Est GFR (MDRD) Af Amer 80 Est GFR (MDRD) Non-Af 66 BUN/Creatinine Ratio 11.4 Glucose 94 Calcium 7.3 L Phosphorus 2.2 L Magnesium 1.7 Total Bilirubin 1.00 AST 25 ALT 24 Alkaline Phosphatase 42 L Total Protein 5.8 L Albumin 2.7 L Globulin 3.1 Albumin/Globulin Ratio 0.9 Medical Necessity - Tobacco Use Smoking Status: Never smoker Tobacco Use: Non-smoker Assessment/Plan Active and Suspected Problems Acute UTI (Acute) Kidney transplant recipient (Acute) Patient is a 52-year-old male admitted 07/13/2017 due to fever, nausea, emesis, suprapubic pain. He has a past medical history of mild MRDD, congenital nystagmus, chronic kidney disease stage III with prior end-stage renal disease status post renal transplant on chronic immunosuppressive therapy, neurogenic bladder requiring self catheterization, history of DVT, hypertension. 1. Acute Enterobacter aerogenes cystitis-confirmed by urine culture. Infectious disease consulted. Continue IV Cipro. Discharge on Cipro 500 mg twice daily with stop date 07/25/2017. Patient is status post kidney transplant. Continue prophylactic Bactrim. Fever improving, T-max for the last [address] of abdomen completed due to abdominal pain which showed transplant kidney in the right lower quadrant, perinephric edema of the transplanted kidney, no hydronephrosis of the transplant kidney. Stable hydronephrosis of atrophic right kidney. Thickening of the urinary bladder. Left lower lung pneumonia. Patient has history of neurogenic bladder and straight caths at home. Indwelling catheter in place, draining yellow cloudy urine. Do not suspect pneumonia as noted on CT of abdomen. Patient denies cough. Afebrile. Oxygen stable on room air. 2. Acute kidney injury on chronic renal failure stage III-history of end-stage renal disease status post renal transplant. Continue chronic immunosuppressive therapy with CellCept and tacrolimus. Creatinine now within normal limits. Nephrology consulted who feels renal function is stable. 3. History of DVT-not on chronic anticoagulation. 4. Mild MRDD-highly functioning, lives by himself, employed full-time. Denies home-going needs. 5. Hypertension-stable, continue home amlodipine regimen. DVT prophylaxis-heparin subcu. This patient was seen by JASS Arauz under the supervision of Dr. Metzger.
[2017-07-16 20:04] VITALS: BP 143/83; PULSE 92; RESP 16; TEMP 36.4; O2SAT 98
[2017-07-16] MEDS: amLODIPine 5 MG Tablet PO (20:55)
[2017-07-17 02:02] VITALS: BP 121/65; PULSE 84; RESP 16; TEMP 37.2; O2SAT 95
[2017-07-17] MEDS: 0.9% Normal Saline 1,000 ML 150 ML IV ×3 (04:59→21:11)
[2017-07-17 08:00] VITALS: BP 116/73; PULSE 91; RESP 18; TEMP 36.8; O2SAT 96
[2017-07-17 08:04] VITALS: O2SAT 95
[2017-07-17 08:20] LABS: Hematocrit 39.6 % (40-54); Hemoglobin 12.6 g/dl (13.0-16.5); Mean Corp Hgb Conc 31.8 g/gl (32-36); Mean Corpuscular Hgb 28.1 pg (27.0-32.0); Mean Corpuscular Volume 88.2 fL (80-94); Mean Platelet Vol. 11.3 fl (6.2-12.0); Platelet Count 125 K/mm3 (150-450); Red Blood Count 4.49 M/mm3 (4.6-6.2)
[2017-07-17 08:21] LABS: Anion Gap 9 (5-15); BUN 14 mg/dL (7-18); BUN/Creat Ratio 11.9 RATIO (10-20); Calcium,Total 7.3 mg/dL (8.5-10.1); Chloride 114 mmol/L (98-107); Creatinine, Serum 1.18 mg/dL (0.70-1.30); EST Glomerular Filtration Rate 69 mL/min (>60); Est Glom Filt Rate - Afr Amer 84 mL/min (>60); Glucose 89 mg/dL (74-106); Potassium 4.1 mmol/L (3.5-5.1); Sodium Level 141 mmol/L (136-145)
[2017-07-17 08:23] LABS: Scan Indicated on CBC? Y/N NO
[2017-07-17] MEDS: Smz/Tmp Ds Tablet 0.5 TABLET PO (08:34)
[2017-07-17] MEDS: Tacrolimus Anhydrous 1 MG Capsule 2 MG PO ×2 (08:34→21:07)
[2017-07-17] MEDS: Mycophenolate Mofetil 250 MG Capsule 500 MG PO ×2 (08:35→21:07)
--- NOTE | 2017-07-17 08:57 | PCM.PROGNOTE ---
Patient Problems: Active and Suspected Problems Acute UTI (Acute) Kidney transplant recipient (Acute) Subjective: Patient seen and examined. States he is feeling blah today. He states he has had diarrhea overnight and this morning and his stomach is rumbling. Denies fever, chills. Ga in place and draining without difficulty. Abdominal pain improved although abdomen remains slightly tender to palpation. Denies other current complaints. - Physical Exam General: Alert, Oriented x3, Cooperative, No apparent distress HEENT: Atraumatic, PERRLA, EOMI, Normocephalic Neck: Supple, No JVD, Negative Carotid Bruits Lungs: Clear to auscultation, Normal air movement Cardiovascular: Regular rate, Regular Rhythm, Normal S1, Normal S2, No murmurs Abdomen: Bowel Sounds Present, Soft, Tender - Generalized, slightly worse right upper quadrant, - - Mild distention Extremities: No clubbing, No cyanosis, No edema, Capillary Refill Less than 3 Seconds, - - Right forearm fistulogram Skin: No rashes, No breakdown Musculoskeletal: No Tenderness to Palpation of Joints or Extremities Neurological: Cranial nerves II-XII grossly intact, Neuro grossly intact Psych/Mental Status: Normal Affect, Appropriate Vital Signs Temp Pulse Resp BP Pulse Ox 98.3 F 91 18 116/73 95 07/17/17 08:00 07/17/17 08:00 07/17/17 08:00 07/17/17 08:00 07/17/17 08:04 Oxygen Flow Rate (L/min) 2 Oxygen Delivery Method Room Air Weight: 79.4 kg Body Mass Index (BMI) 23.7 Intake and Output for Last 24 Hours 07/15/17 07/16/17 07/17/17 23:59 23:59 23:59 Intake Total 5152 / 5152 3070 / 3070 2128 / 2128 Output Total 3275 / 3275 2700 / 2700 1600 / 1600 Balance 1877 / 1877 370 / 370 528 / 528 Laboratory Tests Past 24 Hrs 07/17/17 07/17/17 07:24 07:24 WBC 5.0 RBC 4.49 L Hgb 12.6 L Hct 39.6 L MCV 88.2 MCH 28.1 MCHC 31.8 L RDW 14.0 RDW Differential 45.0 H Plt Count 125 L MPV 11.3 Sodium 141 Potassium 4.1 Chloride 114 H Carbon Dioxide 18.0 L Anion Gap 9 BUN 14 Creatinine 1.18 Estim Creat Clear Calc 82.20 Est GFR (MDRD) Af Amer 84 Est GFR (MDRD) Non-Af 69 BUN/Creatinine Ratio 11.9 Glucose 89 Calcium 7.3 L Medical Necessity - Tobacco Use Smoking Status: Never smoker Tobacco Use: Non-smoker Assessment/Plan Active and Suspected Problems Acute UTI (Acute) Kidney transplant recipient (Acute) Patient is a 52-year-old male admitted 07/13/2017 due to fever, nausea, emesis, suprapubic pain. He has a past medical history of mild MRDD, congenital nystagmus, chronic kidney disease stage III with prior end-stage renal disease status post renal transplant on chronic immunosuppressive therapy, neurogenic bladder requiring self catheterization, history of DVT, hypertension. 1. Acute Enterobacter aerogenes cystitis-confirmed by urine culture. Infectious disease consulted. Continue IV Cipro. Discharge on Cipro 500 mg twice daily with stop date 07/25/2017. Patient is status post kidney transplant. Continue prophylactic Bactrim. Fever improving, T-max for the last [address] of abdomen completed due to abdominal pain which showed transplant kidney in the right lower quadrant, perinephric edema of the transplanted kidney, no hydronephrosis of the transplant kidney. Stable hydronephrosis of atrophic right kidney. Thickening of the urinary bladder. Left lower lung pneumonia. Patient has history of neurogenic bladder and straight caths at home. Indwelling catheter in place, draining yellow cloudy urine. Do not suspect pneumonia as noted on CT of abdomen. Patient denies cough. Afebrile. Oxygen stable on room air. 2. Acute diarrhea- history of c.diff with antibiotic use. Send stool for c.diff. Start vancomycin 250mg Q6hr. 3. Acute kidney injury on chronic renal failure stage III-history of end-stage renal disease status post renal transplant. Continue chronic immunosuppressive therapy with CellCept and tacrolimus. Creatinine now within normal limits. Nephrology consulted who feels renal function is stable. 4. History of DVT-not on chronic anticoagulation. 5. Mild MRDD-highly functioning, lives by himself, employed full-time. Denies home-going needs. 6. Hypertension-stable, continue home amlodipine regimen. DVT prophylaxis-heparin subcu. This patient was seen by AJSS Arauz under the supervision of Dr. Metzger.
[2017-07-17] MEDS: Ciprofloxacin 400 MG/200 ML BAG 200 MG IV ×2 (09:55→21:13)
[2017-07-17 15:00] VITALS: BP 146/71; PULSE 96; RESP 18; TEMP 36.7; O2SAT 97
[2017-07-17 21:00] VITALS: BP 135/79; PULSE 88; RESP 18; TEMP 36.7; O2SAT 95
[2017-07-17] MEDS: amLODIPine 5 MG Tablet PO (21:07)
[2017-07-18 03:50] VITALS: BP 109/62; PULSE 74; RESP 18; TEMP 36.4; O2SAT 98
[2017-07-18] MEDS: 0.9% Normal Saline 1,000 ML 150 ML IV (05:01)
[2017-07-18 06:34] LABS: Hemoglobin 12.9 g/dl (13.0-16.5); Mean Corp Hgb Conc 32.3 g/gl (32-36); Mean Corpuscular Hgb 28.4 pg (27.0-32.0); Mean Corpuscular Volume 87.9 fL (80-94); Mean Platelet Vol. 11.2 fl (6.2-12.0); Platelet Count 154 K/mm3 (150-450); RBC Distribution Width CV 14.2 % (11.6-14.6); RBC Distribution Width SD 45.5 fl (35.1-43.9); Red Blood Count 4.55 M/mm3 (4.6-6.2); White Blood Count 4.6 K/mm3 (4.4-11.0)
[2017-07-18 06:39] LABS: Scan Indicated on CBC? Y/N NO
[2017-07-18 06:53] LABS: Anion Gap 9 (5-15); BUN 11 mg/dL (7-18); BUN/Creat Ratio 9.7 RATIO (10-20); Calcium,Total 7.3 mg/dL (8.5-10.1); Chloride 115 mmol/L (98-107); Creatinine, Serum 1.13 mg/dL (0.70-1.30); EST Glomerular Filtration Rate 73 mL/min (>60); Est Glom Filt Rate - Afr Amer 88 mL/min (>60); Estimated Creatinine Clearance 85.84 ml/min; Glucose 90 mg/dL (74-106); Phosphorus 2.1 mg/dL (2.5-4.9); Potassium 4.1 mmol/L (3.5-5.1); Sodium Level 142 mmol/L (136-145)
[2017-07-18 07:42] VITALS: O2SAT 98
[2017-07-18 09:00] VITALS: PULSE 96
[2017-07-18] MEDS: Smz/Tmp Ds Tablet 0.5 TABLET PO (09:05)
[2017-07-18 09:09] VITALS: BP 141/87; PULSE 96; RESP 20; TEMP 36.6; O2SAT 94
[2017-07-18] MEDS: Tacrolimus Anhydrous 1 MG Capsule 2 MG PO (09:47)
[2017-07-18] MEDS: Mycophenolate Mofetil 250 MG Capsule 500 MG PO (09:47)
--- NOTE | 2017-07-18 09:52 | PCM.DC ---
- Discharge Diagnoses Current Active Problems: Current Active and Chronic Problems CKD (chronic kidney disease), stage III (Chronic) Acute UTI (Acute) Kidney transplant recipient (Acute) You will use the following diet at home:: No restrictions Discharge Activity: Return to Normal Activity Call your doctor if you observe: Fever of 101 or Higher, Shortness of breath, Dizziness, Fainting spells, Chest pain Allergies/Adverse Reactions: Allergies No Known Allergies Allergy (Verified 07/13/17 21:32) Medications to take at Discharge Mycophenolate Mofetil [Cellcept] 500 mg PO BID 07/14/16 Amlodipine [Norvasc] 5 mg PO 2100 12/01/16 Tacrolimus Anhydrous [Prograf] 2 mg PO BID 12/02/16 Sulfamethoxazole/Trimethoprim [Sulfamethoxazole-Tmp Ss Tablet] 1 tab PO DAILY 07/13/17 Ciprofloxacin [Cipro] 500 mg PO BID #16 tab 07/18/17 Lactobacillus Acidophilus [Acidophilus] 1 tab PO BID #60 tab 07/18/17 The following prescriptions were given: Ciprofloxacin [Cipro] 500 mg PO BID #16 tab Lactobacillus Acidophilus [Acidophilus] 1 tab PO BID #60 tab Primary Care Physician: Mike Bella MD [Primary Care Provider] - Please follow up with your Primary Care Physician in: 1 Week Please Follow Up With: Nakul Dennis MD When: As scheduled Please Follow Up With: Kidney Doctor When: As scheduled Proposed Discharge Date: 07/18/17
--- NOTE | 2017-07-18 09:58 | PCM.DC.SUM ---
<Bharti Aly - Last Filed: 07/18/17 10:04> Discharge Date and Diagnosis Date of Admission: 07/13/17 Date of Discharge: 07/18/17 - Primary Discharge Diagnosis Active and Suspected Problems 1. Acute Enterobacter aerogenes cystitis in immunocompromised patient status post kidney transplant 2. Acute kidney injury on chronic renal failure stage III - Secondary Discharge Diagnosis Chronic Problems CKD (chronic kidney disease), stage III (Chronic) Congenital nystagmus (Chronic) Mild MRDD (Chronic) DVT (deep venous thrombosis) (Chronic) Renal transplant, status post (Chronic) Neurogenic bladder disorder (Chronic) managed with cic Hypertension Hospital Course and Treatment Imaging Results: Diagnostic Data Chest X-Ray 07/13/17 21:50 IMPRESSION: Normal x-ray examination of the chest. Electronically Signed: Hans Wong MD at 22:44 EDT , Service support , Abdomen/Pelvis CT 07/16/17 05:55 IMPRESSION: Transplant kidney in the right lower quadrant. There is perinephric edema of the transplanted kidney. There is no hydronephrosis of the transplant kidney. There is stable hydronephrosis of atrophic right kidney. There is wall thickening of the urinary bladder. Left lower lung pneumonia. Electronically Signed: Miah Barrios MD at 11:02 EDT , Service support , Dr. Santos- ID Dr. Williamson- Nephrology Operations: None Procedures: None Summary of Care Provided: Patient is a 52-year-old male admitted 07/13/2017 due to fever, nausea, emesis, suprapubic pain. He has a past medical history of mild MRDD, congenital nystagmus, chronic kidney disease stage III with prior end-stage renal disease status post renal transplant on chronic immunosuppressive therapy, neurogenic bladder requiring self catheterization, history of DVT, hypertension. 1. Acute Enterobacter aerogenes cystitis-confirmed by urine culture. Infectious disease consulted. Patient received IV antibiotics during admission. Discharge on Cipro 500 mg twice daily with stop date 07/25/2017. Patient is status post kidney transplant. Continue prophylactic Bactrim. Fever resolved. CT of abdomen completed due to abdominal pain which showed transplant kidney in the right lower quadrant, perinephric edema of the transplanted kidney, no hydronephrosis of the transplant kidney. Stable hydronephrosis of atrophic right kidney. Thickening of the urinary bladder. Patient has history of neurogenic bladder and straight caths at home. He will continue outpatient follow-up with Dr. Dennis. 2. Acute diarrhea-resolved. Stool sent for C. difficile which was negative. He will continue acidophilus twice daily at discharge. 3. Acute kidney injury on chronic renal failure stage III-history of end-stage renal disease status post renal transplant. Continue chronic immunosuppressive therapy with CellCept and tacrolimus. Creatinine 1.13 at discharge. Nephrology consulted during admission. Patient will continue outpatient follow-up with nephrology. 4. History of DVT-not on chronic anticoagulation. 5. Mild MRDD-highly functioning, lives by himself, employed full-time. Denies home-going needs. 6. Hypertension-stable, continue home amlodipine regimen. General: Alert, Oriented x3, Cooperative, No apparent distress HEENT: Atraumatic, PERRLA, EOMI, Normocephalic Neck: Supple, No JVD, Negative Carotid Bruits Lungs: Clear to auscultation, Normal air movement Cardiovascular: Regular rate, Regular Rhythm, Normal S1, Normal S2, No murmurs Abdomen: Bowel Sounds Present, Soft, Tender - Generalized, slightly worse right upper quadrant, - - Mild distention Extremities: No clubbing, No cyanosis, No edema, Capillary Refill Less than 3 Seconds, - - Right forearm fistulogram Skin: No rashes, No breakdown Musculoskeletal: No Tenderness to Palpation of Joints or Extremities Neurological: Cranial nerves II-XII grossly intact, Neuro grossly intact Psych/Mental Status: Normal Affect, Appropriate Patient seen and examined prior to discharge. Physical assessment as noted above. Patient is stable for discharge home with recommendations as noted above. This patient was seen by JASS Arauz under the supervision of Dr. Metzger. Discharge Diet: No Restrictions Discharge Activity: Return to Normal Activity Call your doctor if you observe: Fever of 101 or Higher, Shortness of breath, Dizziness, Fainting spells, Chest pain Home Medications: Medications to take at Discharge Mycophenolate Mofetil [Cellcept] 500 mg PO BID 07/14/16 Amlodipine [Norvasc] 5 mg PO 2100 12/01/16 Tacrolimus Anhydrous [Prograf] 2 mg PO BID 12/02/16 Sulfamethoxazole/Trimethoprim [Sulfamethoxazole-Tmp Ss Tablet] 1 tab PO DAILY 07/13/17 Ciprofloxacin [Cipro] 500 mg PO BID #16 tab 07/18/17 Lactobacillus Acidophilus [Acidophilus] 1 tab PO BID #60 tab 07/18/17 Rivaroxaban [Xarelto] 15 mg PO BIDCM #42 tab 07/21/17 Following Prescrptions Were Given to Patient: Ciprofloxacin [Cipro] 500 mg PO BID #16 tab Lactobacillus Acidophilus [Acidophilus] 1 tab PO BID #60 tab Primary Care Physician: Mike Bella MD [Primary Care Provider] - Please follow up with your Primary Care Physician in: 1 Week Please Follow Up With: Nakul Dennis MD When: As scheduled Please Follow Up With: Kidney Doctor When: As scheduled Disposition: Home Minutes spent on discharge:: 35 Patient Condition:: Stable Medical Necessity - Tobacco Use Smoking Status: Never smoker Tobacco Use: Non-smoker Meaningful Use Info Meaningful Use Diagnoses (Choose all that apply): None applicable <Adilene Metzger - Last Filed: 07/26/17 19:17> Discharge Date and Diagnosis - Secondary Discharge Diagnosis Chronic Problems Pulmonary infiltrate present on computed tomography (Chronic) CKD (chronic kidney disease), stage III (Chronic) Acute UTI (Chronic) Kidney transplant recipient (Chronic) Congenital nystagmus (Chronic) Mild MRDD (Chronic) DVT (deep venous thrombosis) (Chronic) Renal transplant, status post (Chronic) Neurogenic bladder disorder (Chronic) managed with cic Hospital Course and Treatment Summary of Care Provided: The patient is a 52 year old M [] Code Visit This patient was seen in conjunction with Bharti Aly NP. I have independently interviewed and examined the patient and reviewed pertinent historical, laboratory and other data. Please refer to the discharge summary note for details of this patient's presentation, findings and recommendations. I have reviewed Bharti's note and concur fully with documented findings. In brief, patient is a 52 YO male admitted with complicated UTI due to pyelonephritis in an an immunocompromised pt with a hx of a renal transplant on immunosuppressive agents who has urine retention and self catheterizes. He was initially started on Rocephin but this was broadened to Merem because he had a hx of E. Coli ESBL in the past until the cultures were available. He was seen in consult bu ID and nephro. The urine culture grew enterobacter and the antibiotic spectrum was narrowed to Cipro. A CT scan of the abdomen was due because he complained of severe abdominal pain. there was perinephric edema of the transplanted kidney but no hydronephrosis of the transplanted kidney. Physical examination: ungs - CTA Heart RRR, no gallop and no MM Abdomen - soft, NT, ND with normal BS's present No edema and no rashes Assessment: 1. enterobacter pyelonephritis in an immunocompromised host who self catheterizes 2. urinary retention 3. hx of renal transplant 4. stage 3 CRF I have discussed my assessment with Bharti and orders have been written. Inpatient E&M: [id number] [facility]
--- NOTE | 2017-07-18 10:03 | DS.PCM_ITS ---
<Bharti Aly - Last Filed: 07/18/17 10:04> Discharge Date and Diagnosis Date of Admission: 07/13/17 Date of Discharge: 07/18/17 - Primary Discharge Diagnosis Active and Suspected Problems 1. Acute Enterobacter aerogenes cystitis in immunocompromised patient status post kidney transplant 2. Acute kidney injury on chronic renal failure stage III - Secondary Discharge Diagnosis Chronic Problems CKD (chronic kidney disease), stage III (Chronic) Congenital nystagmus (Chronic) Mild MRDD (Chronic) DVT (deep venous thrombosis) (Chronic) Renal transplant, status post (Chronic) Neurogenic bladder disorder (Chronic) managed with cic Hypertension Hospital Course and Treatment Imaging Results: Diagnostic Data Chest X-Ray 07/13/17 21:50 IMPRESSION: Normal x-ray examination of the chest. Electronically Signed: Hans Wong MD at 22:44 EDT , Service support , Abdomen/Pelvis CT 07/16/17 05:55 IMPRESSION: Transplant kidney in the right lower quadrant. There is perinephric edema of the transplanted kidney. There is no hydronephrosis of the transplant kidney. There is stable hydronephrosis of atrophic right kidney. There is wall thickening of the urinary bladder. Left lower lung pneumonia. Electronically Signed: Miah Barrios MD at 11:02 EDT , Service support , Dr. Santos- ID Dr. Williamson- Nephrology Operations: None Procedures: None Summary of Care Provided: Patient is a 52-year-old male admitted 07/13/2017 due to fever, nausea, emesis, suprapubic pain. He has a past medical history of mild MRDD, congenital nystagmus, chronic kidney disease stage III with prior end-stage renal disease status post renal transplant on chronic immunosuppressive therapy, neurogenic bladder requiring self catheterization, history of DVT, hypertension. 1. Acute Enterobacter aerogenes cystitis-confirmed by urine culture. Infectious disease consulted. Patient received IV antibiotics during admission. Discharge on Cipro 500 mg twice daily with stop date 07/25/2017. Patient is status post kidney transplant. Continue prophylactic Bactrim. Fever resolved. CT of abdomen completed due to abdominal pain which showed transplant kidney in the right lower quadrant, perinephric edema of the transplanted kidney, no hydronephrosis of the transplant kidney. Stable hydronephrosis of atrophic right kidney. Thickening of the urinary bladder. Patient has history of neurogenic bladder and straight caths at home. He will continue outpatient follow-up with Dr. Dennis. 2. Acute diarrhea-resolved. Stool sent for C. difficile which was negative. He will continue acidophilus twice daily at discharge. 3. Acute kidney injury on chronic renal failure stage III-history of end-stage renal disease status post renal transplant. Continue chronic immunosuppressive therapy with CellCept and tacrolimus. Creatinine 1.13 at discharge. Nephrology consulted during admission. Patient will continue outpatient follow- up with nephrology. 4. History of DVT-not on chronic anticoagulation. 5. Mild MRDD-highly functioning, lives by himself, employed full-time. Denies home-going needs. 6. Hypertension-stable, continue home amlodipine regimen. General: Alert, Oriented x3, Cooperative, No apparent distress HEENT: Atraumatic, PERRLA, EOMI, Normocephalic Neck: Supple, No JVD, Negative Carotid Bruits Lungs: Clear to auscultation, Normal air movement Cardiovascular: Regular rate, Regular Rhythm, Normal S1, Normal S2, No murmurs Abdomen: Bowel Sounds Present, Soft, Tender - Generalized, slightly worse right upper quadrant, - - Mild distention Extremities: No clubbing, No cyanosis, No edema, Capillary Refill Less than 3 Seconds, - - Right forearm fistulogram Skin: No rashes, No breakdown Musculoskeletal: No Tenderness to Palpation of Joints or Extremities Neurological: Cranial nerves II-XII grossly intact, Neuro grossly intact Psych/Mental Status: Normal Affect, Appropriate Patient seen and examined prior to discharge. Physical assessment as noted above. Patient is stable for discharge home with recommendations as noted above. This patient was seen by JASS Arauz under the supervision of Dr. Metzger. Discharge Diet: No Restrictions Discharge Activity: Return to Normal Activity Call your doctor if you observe: Fever of 101 or Higher, Shortness of breath, Dizziness, Fainting spells, Chest pain Home Medications: Medications to take at Discharge Mycophenolate Mofetil [Cellcept] 500 mg PO BID 07/14/16 Amlodipine [Norvasc] 5 mg PO 2100 12/01/16 Tacrolimus Anhydrous [Prograf] 2 mg PO BID 12/02/16 Sulfamethoxazole/Trimethoprim [Sulfamethoxazole-Tmp Ss Tablet] 1 tab PO DAILY Ciprofloxacin [Cipro] 500 mg PO BID #16 tab 07/18/17 Lactobacillus Acidophilus [Acidophilus] 1 tab PO BID #60 tab 07/18/17 Rivaroxaban [Xarelto] 15 mg PO BIDCM #42 tab 07/21/17 Following Prescrptions Were Given to Patient: Ciprofloxacin [Cipro] 500 mg PO BID #16 tab Lactobacillus Acidophilus [Acidophilus] 1 tab PO BID #60 tab Primary Care Physician: Mike Bella MD [Primary Care Provider] - Please follow up with your Primary Care Physician in: 1 Week Please Follow Up With: Nakul Dennis MD When: As scheduled Please Follow Up With: Kidney Doctor When: As scheduled Disposition: Home Minutes spent on discharge:: 35 Patient Condition:: Stable Medical Necessity - Tobacco Use Smoking Status: Never smoker Tobacco Use: Non-smoker Meaningful Use Info Meaningful Use Diagnoses (Choose all that apply): None applicable <Adilene Metzger - Last Filed: 07/26/17 19:17> Discharge Date and Diagnosis - Secondary Discharge Diagnosis Chronic Problems Pulmonary infiltrate present on computed tomography (Chronic) CKD (chronic kidney disease), stage III (Chronic) Acute UTI (Chronic) Kidney transplant recipient (Chronic) Congenital nystagmus (Chronic) Mild MRDD (Chronic) DVT (deep venous thrombosis) (Chronic) Renal transplant, status post (Chronic) Neurogenic bladder disorder (Chronic) managed with cic Hospital Course and Treatment Summary of Care Provided: The patient is a 52 year old M [] Code Visit This patient was seen in conjunction with Bharti Aly NP. I have independently interviewed and examined the patient and reviewed pertinent historical, laboratory and other data. Please refer to the discharge summary note for details of this patient's presentation, findings and recommendations. I have reviewed Bharti's note and concur fully with documented findings. In brief, patient is a 52 YO male admitted with complicated UTI due to pyelonephritis in an an immunocompromised pt with a hx of a renal transplant on immunosuppressive agents who has urine retention and self catheterizes. He was initially started on Rocephin but this was broadened to Merem because he had a hx of E. Coli ESBL in the past until the cultures were available. He was seen in consult bu ID and nephro. The urine culture grew enterobacter and the antibiotic spectrum was narrowed to Cipro. A CT scan of the abdomen was due because he complained of severe abdominal pain. there was perinephric edema of the transplanted kidney but no hydronephrosis of the transplanted kidney. Physical examination: ungs - CTA Heart RRR, no gallop and no MM Abdomen - soft, NT, ND with normal BS's present No edema and no rashes Assessment: 1. enterobacter pyelonephritis in an immunocompromised host who self catheterizes 2. urinary retention 3. hx of renal transplant 4. stage 3 CRF I have discussed my assessment with Bharti and orders have been written. Inpatient E&M: [id number] [facility]
[2017-07-18 12:30] VITALS: BP 147/87; PULSE 96; RESP 20; TEMP 37.1; O2SAT 97
[2017-07-19 11:15] LABS: Pathologist Review Reviewed
== END 2017-07-18 12:50 | disposition home or self-care (01) | DRG 699 ==
LOC: ED 23:51 → MS2 07-14 00:03
PROVIDERS: Nurse Practitioner Family; Admitting Provider Family Medicine; Emergency Provider Emergency Medicine; Family Provider Family Medicine; PCP Family Medicine; Visit Provider Internal Medicine
DX: T83.518A Infection and inflammatory reaction due to other urinary catheter, initial encounter (principal); N30.00 Acute cystitis without hematuria; E87.2 Acidosis; N17.9 Acute kidney failure, unspecified; Z94.0 Kidney transplant status; N18.3 Chronic kidney disease, stage 3 (moderate); E83.39 Other disorders of phosphorus metabolism; Y73.8 Miscellaneous gastroenterology and urology devices associated with adverse incidents, not elsewhere classified; B96.89 Other specified bacterial agents as the cause of diseases classified elsewhere; N31.9 Neuromuscular dysfunction of bladder, unspecified; F70 Mild intellectual disabilities; H55.01 Congenital nystagmus; Z79.899 Other long term (current) drug therapy; Z86.718 Personal history of other venous thrombosis and embolism; I12.9 Hypertensive chronic kidney disease with stage 1 through stage 4 chronic kidney disease, or unspecified chronic kidney disease; R19.7 Diarrhea, unspecified
CPT/HCPCS: 36415; 51702; 71045; 74176; 76770; 80048; 80053; 81001; 83605; 83735; 84100; 85025; 85027; 85610; 85730; 87040; 87077; 87086; 87088; 87186; 87493; 87804; 93005; 99284; J2185; J7030; J7050; A4216; J0744; J2405

== ENCOUNTER 2017-07-20 20:48 | Observation (INO) | payer MEDICARE, OTHER, SELFPAY ==
[2017-07-20 20:51] VITALS: BP 137/83; PULSE 114; RESP 19; TEMP 37.1; O2SAT 95; BMI 24.5
--- NOTE | 2017-07-20 20:51 | NURSING ---
CALLED FOR EKG PER RN REQUEST, PULLED OLD EKG'S FOR
[2017-07-20 20:56] VITALS: PULSE 111; RESP 24; O2SAT 95
--- NOTE | 2017-07-20 21:03 | RAD_ITS ---
STUDY: X-RAY CHEST REASON FOR EXAM: Male, 52 years old. Cough chest pain TECHNIQUE: Portable AP COMPARISON: July 13, 2017 FINDINGS: There are bibasilar ill-defined opacities. Normal size heart. Normal mediastinum and alton. Normal visualized pulmonary arteries. Normal visualized aortic arch and descending thoracic aorta. There are diffuse degenerative changes of the visualized thoracic spine. Normal visualized ribs, clavicles, and shoulders. There is no demonstrated abnormality of the visualized soft tissue structures of the upper abdomen. RAD/Chest 1 View (Portable) IMPRESSION: Bibasilar nonspecific opacities may reflect underlying atelectasis and/or evolving pneumonia. Electronically Signed: Sheyla Long MD at 21:56 EDT Tel , Service support ,
--- NOTE | 2017-07-20 21:03 | EKG12_ITS ---
Test Reason : REPEAT Blood Pressure : / mmHG Vent. Rate : 090 BPM Atrial Rate : 090 BPM P-R Int : 128 ms QRS Dur : 078 ms QT Int : 378 ms P-R-T Axes : 063 013 046 degrees QTc Int : 462 ms Normal sinus rhythm Normal ECG Confirmed by SUSAN MORENO, RAEANN ([id number]), telegraph editor EUGENIO CONKLIN ([id number]) on 07/23/2017 1:46:08 PM Referred By: GIA Confirmed By:RAEANN DAVIS MD
[2017-07-20 21:06] VITALS: O2SAT 97
[2017-07-20] MEDS: Clopidogrel Bisulfate 300 MG Tablet 75 MG PO (21:12)
[2017-07-20] MEDS: Aspirin 81 MG TAB.CHEW 324 MG PO (21:12)
[2017-07-20] MEDS: Ondansetron 4 MG/2 ML Vial IV (21:16)
[2017-07-20] MEDS: 0.9% Normal Saline 1,000 ML 150 ML IV (21:16)
[2017-07-20] MEDS: Morphine 4 MG/ML Syringe IV (21:16)
[2017-07-20 21:23] LABS: Hematocrit 43.9 % (40-54); Hemoglobin 14.3 g/dl (13.0-16.5); Mean Corp Hgb Conc 32.6 g/gl (32-36); Mean Corpuscular Hgb 28.4 pg (27.0-32.0); Mean Corpuscular Volume 87.3 fL (80-94); Mean Platelet Vol. 10.6 fl (6.2-12.0); Platelet Count 238 K/mm3 (150-450); RBC Distribution Width CV 14.4 % (11.6-14.6); RBC Distribution Width SD 45.6 fl (35.1-43.9); Red Blood Count 5.03 M/mm3 (4.6-6.2); White Blood Count 3.7 K/mm3 (4.4-11.0)
[2017-07-20 21:29] LABS: BUN 20 mg/dL (7-18); Creatinine, Serum 1.54 mg/dL (0.70-1.30); Glucose 107 mg/dL (74-106)
[2017-07-20 21:30] LABS: Anion Gap 11 (5-15); Calcium,Total 8.5 mg/dL (8.5-10.1); Chloride 111 mmol/L (98-107); EST Glomerular Filtration Rate 51 mL/min (>60); Est Glom Filt Rate - Afr Amer 62 mL/min (>60); Estimated Creatinine Clearance 62.99 ml/min; Potassium 4.3 mmol/L (3.5-5.1); Sodium Level 143 mmol/L (136-145)
[2017-07-20 21:53] LABS: Basophil 2 % (0-1); Eosinophil 3 % (0-5); Lymphocyte 25 % (19-41); Monocyte 12 % (0-10); Neutrophil-Band 3 % (0-5); Neutrophil-Segmented 55 % (47-70); Total Cells Counted 100 (MANUAL DIFF)
[2017-07-20 21:54] LABS: Absolute Neutrophil Count 2.2 X10^3/uL (2.0-7.7); Differential Indicated MANUAL DIFF; POSITIVE COUNT YES; POSITIVE DIFFERENTIAL YES; POSITIVE MORPHOLOGY YES
[2017-07-20 21:55] LABS: Absolute Lymphocyte Count 0.93 X10^3/ul (0.83-4.51); Platelet Morphology LARGE
[2017-07-20 21:58] LABS: D-Dimer Quantitative (DVT/PE) 4.98 FEU/ug/m (0.27-0.49)
--- NOTE | 2017-07-20 22:05 | ED.RN ---
LAB CALLED TO REPORT D DIMER 4.98, DR NIELSEN AND RN MADE AWARE.
--- NOTE | 2017-07-20 22:09 | CT_ITS ---
STUDY: CTA CHEST REASON FOR EXAM: Male, 52 years old. Sternal pain. RADIATION DOSAGE (If Supplied By Facility): CTDIvol = ( 16.34 ) mGy, DLP = ( 599.24 ) mGycm TECHNIQUE: The examination was performed with the intravenous administration of 75ML ml of Isovue 370 contrast material. Post-processing of the angiographic images was performed, with multiplanar reformation and 3D reconstruction. Individualized dose optimization techniques were used for this CT. COMPARISON: None. FINDINGS: There are groundglass opacities associated with minimal dependent consolidation and atelectasis within the lower lobes. There are filling defects noted within segmental and subsegmental pulmonary arteries within the right middle lobe consistent with pulmonary emboli Normal thoracic aorta and visualized great vessels. There is no demonstrated aortic dissection. There are endovascular stent(s) present. Normal mediastinum. Normal hilar regions. Normal visualized trachea and bronchi. Normal chest wall structures. There are degenerative changes of thoracic spine. The limited images of the upper abdomen demonstrate atrophic kidneys. CT/CTA Chest W/WO Contrast IMPRESSION: Pulmonary emboli within the right middle lobe. Bilateral groundglass opacities associated with dependent consolidation within the lower lobes likely reflects some combination of edema and/or pneumonia. Bilateral lower lobe atelectasis. Atherosclerosis. N.B. : The above information has been verbally conveyed by Sheyla Long MD to , Covering Physician, on 07/20/2017 23:43:28 (ET). Electronically Signed: Sheyla Long MD at 23:43 EDT Tel , Service support , N.B. : The above information has been verbally conveyed by Sheyla Long MD to , Covering Physician, on 07/20/2017 23:43:28 (ET).
[2017-07-20 22:11] VITALS: BP 125/76; PULSE 103; RESP 16; O2SAT 95
[2017-07-20 23:20] VITALS: BP 120/76; PULSE 93; RESP 16; O2SAT 97
--- NOTE | 2017-07-20 23:48 | ED.VISSUMM ---
- ER Visit Summary Date of Service: 07/20/17 Chief Complaint: [Chest pain] History of Present Illness: The patient is a 52 M [presents with chest discomfort that started this evening approximately 2 hours prior to arrival in the emergency department. Patient states that he was sitting and watching television. Patient described the pain as sharp in the anterior chest and rates it an 8 out of 10. Patient states pain is worse with deep breath. Patient was recently admitted to the hospital and treated for urosepsis. Patient has had a cough. Patient denies fever. Patient does have a history of kidney transplant, neurogenic bladder, DVT that is not currently being treated, MRDD. Patient is a poor informant and a lot of the history comes from his sister.] Physical Examination: [HEENT-PERRLA, EOMI. Cranial nerves II through XII grossly intact. TMs clear. Mucous membranes moist. No adenopathy. Cardiovascular-regular rate and rhythm without murmur or ectopy Lungs-clear to auscultation, chest wall stable without crepitus or subcu emphysema Abdomen-normoactive bowel sounds, soft, nontender, no rebound or rigidity, no peritoneal signs. Extremities-intact ?4, normal range of motion, normal pulses, atraumatic] Test Results: [EKG obtained showed sinus rhythm with a ventricular rate of 111. CBC with differential showed a white count of 3.7, hemoglobin 14, hematocrit 44, platelets 238. History is unremarkable. BUN was 20 and creatinine was 1.54. Glucose was 107. Troponin was less than 0.02. D-dimer was elevated at 4.98. CTA of the chest showed a right middle lobe pulmonary embolus and pneumonia.] Emergency Department Course and Treatment: [Patient case initially was discussed with Dr. Armstrong of nephrology prior to obtaining the CTA given patient's history of renal failure and kidney transplant. We were asked to hydrate the patient after the CTA. Patient will be admitted for anticoagulation. Patient also to be admitted for further workup of his chest pain and management of his pain. After 4 mg of morphine patient continues to complain of pain.] Treatment Plan: [Admit] Disposition: [Admit] Impression: [Chest pain Pulmonary embolism Pneumonia] This note was generated with [employer] software. It may contain incorrect words, spelling, and punctuation that were not noted in review of the chart prior to signing ED Disposition - Plan for ED Patient: Chief Complaint: Chest Pain Referrals: Mike Bella MD [Primary Care Provider] -
--- NOTE | 2017-07-20 23:52 | EKG12_ITS ---
Test Reason : CP Blood Pressure : / mmHG Vent. Rate : 111 BPM Atrial Rate : 111 BPM P-R Int : 122 ms QRS Dur : 086 ms QT Int : 344 ms P-R-T Axes : 045 008 039 degrees QTc Int : 467 ms Sinus tachycardia Inferior infarct , age undetermined Abnormal ECG Confirmed by SUSAN MORENO, RAEANN ([id number]), web content editor EUGENIO CONKLIN ([id number]) on 07/23/2017 1:46:52 PM Referred By: GIA Confirmed By:RAEANN DAVIS MD
[2017-07-21] VITALS (11 sets, daily range): BP systolic 113–140; BP diastolic 69–79; PULSE 84–102; RESP 16–21; TEMP 36.2–36.6; O2SAT 94–96; BMI 24.0; BMI 24.1
--- NOTE | 2017-07-21 00:24 | PCM.HP.STD ---
Problem List (1) Pulmonary embolism Status: Acute (2) Chest pain Status: Acute (3) Pulmonary infiltrate present on computed tomography Status: Chronic (4) Acute UTI Status: Chronic (5) Kidney transplant recipient Status: Chronic (6) CKD (chronic kidney disease), stage III Status: Chronic (7) Congenital nystagmus Status: Chronic (8) DVT (deep venous thrombosis) Status: Chronic (9) Mild MRDD Status: Chronic (10) Neurogenic bladder disorder Status: Chronic Comment: managed with cic (11) Renal transplant, status post Status: Chronic History of Present Illness Date of Admission: 07/21/17 Chief Complaint: chest pain The patient is a 52 year old M who is a discharge on the with a urinary tract infection. Patient presents on the with chest pain. Patient describes chest pain is midsternal. Patient had an elevated d-dimer of 5. Dr. Armstrong, of nephrology was contacted by the emergency room, and was asked if patient could undergo a CT angiogram. Stated that would be fine but the patient ate and would need to be hydrated afterwards. Patient was found to have a right middle lobe pulmonary embolism. Patient is stable. Patient is being admitted for further IV fluids and to initiate anticoagulation for his pulmonary embolism. From the records from the patient's hospitalization, patient was on subcutaneous heparin for DVT prophylaxis. Patient does have a history of a DVT in his upper extremity. [] Past Medical History Past Medical History (Chronic Problems): Chronic Problems Pulmonary infiltrate present on computed tomography (Chronic) CKD (chronic kidney disease), stage III (Chronic) Acute UTI (Chronic) Kidney transplant recipient (Chronic) Congenital nystagmus (Chronic) Mild MRDD (Chronic) DVT (deep venous thrombosis) (Chronic) Renal transplant, status post (Chronic) Neurogenic bladder disorder (Chronic) managed with cic Allergies No Known Allergies Allergy (Verified 07/20/17 20:56) Home Medications: Ambulatory Orders Medication Instructions Recorded Mycophenolate Mofetil [Cellcept] 500 mg PO BID 07/14/16 Amlodipine [Norvasc] 5 mg PO 2100 12/01/16 Tacrolimus Anhydrous [Prograf] 2 mg PO BID 12/02/16 Sulfamethoxazole/Trimethoprim 1 tab PO DAILY 07/13/17 [Sulfamethoxazole-Tmp Ss Tablet] Ciprofloxacin [Cipro] 500 mg PO BID #16 tab 07/18/17 Lactobacillus Acidophilus 1 tab PO BID #60 tab 07/18/17 [Acidophilus] Surgical History: - - Right kidney transplant , dialysis access prior. Right upper extremity fistula Lives: Alone Smoking Status: Never smoker Tobacco Use: Non-smoker Alcohol: None Drugs: None - *Family History Maternal History Items: Hypertension Paternal History Items: Diabetes Review of Systems Constitutional: Denies: Chills, Fever Eyes: Denies: Blurred vision HEENT: Denies: Difficulty Hearing Cardiovascular: Reports: Chest Pain. Denies: Edema Respiratory: Reports: Cough Gastrointestinal: Denies: Abdominal Pain, Nausea, Vomiting Genitourinary: Denies: Dysuria, Hematuria Musculoskeletal: Denies: Joint Pain, Joint Tenderness Skin: Denies: Rash, Wounds Neurological: Denies: Numbness, Tingling, Focal weakness Psychiatric: Denies: Anxiety, Depression, Homicidal Ideations, Suicidal Ideations Hematologic/ Lymphatic: Reports: Hx of blood clot. Denies: Easy Bruising, Easy Bleeding VTE Information - Inpt Only VTE Present on Admission: Yes Patient Problems: Active and Suspected Problems Pulmonary embolism (Acute) Chest pain (Acute) - Physical Exam General: Alert, Cooperative, No apparent distress HEENT: Atraumatic, Normocephalic Neck: No Nodes, Thyroid Normal Size and Texture Lungs: Clear to auscultation, Normal air movement, No rhonchi, No wheeze Cardiovascular: Regular rate, Regular Rhythm, Normal S1, Normal S2, No murmurs Abdomen: Bowel Sounds Present, Soft, Non Tender, Non-Distended, No Hepato-splenomegaly Extremities: No edema, No Calf Tenderness, - - Fistula of right upper extremity with audible bruit. Skin: No rashes, No breakdown Musculoskeletal: - - Reproducible midsternal chest pain Psych/Mental Status: Normal Affect, Appropriate Vital Signs Temp Pulse Resp BP Pulse Ox 37.1 C 93 21 H 140/79 H 96 07/20/17 20:51 07/21/17 00:09 07/21/17 00:09 07/21/17 00:09 07/21/17 00:09 Oxygen Flow Rate (L/min) 2 Oxygen Delivery Method Room Air Weight: 82.2 kg Body Mass Index (BMI) 24.5 Laboratory Tests Past 24 Hrs 07/20/17 07/20/17 07/20/17 20:55 20:55 20:55 WBC 3.7 L RBC 5.03 Hgb 14.3 Hct 43.9 MCV 87.3 MCH 28.4 MCHC 32.6 RDW 14.4 RDW Differential 45.6 H Plt Count 238 MPV 10.6 Neut % (Auto) Not Reportable Absolute Neuts (auto) 2.2 Absolute Lymphs (auto) 0.93 Total Counted 100 Neutrophils % (Manual) 55 Band Neutrophils % 3 Lymphocytes % (Manual) 25 Monocytes % (Manual) 12 H Eosinophils % (Manual) 3 Basophils % (Manual) 2 H Diff Path Review May foll Plt Morphology Comment LARGE D-Dimer Quant (PE/DVT) 4.98 H* Sodium 143 Potassium 4.3 Chloride 111 H Carbon Dioxide 21.0 Anion Gap 11 BUN 20 H Creatinine 1.54 H Estim Creat Clear Calc 62.99 Est GFR (MDRD) Af Amer 62 Est GFR (MDRD) Non-Af 51 L BUN/Creatinine Ratio 13.0 Glucose 107 H Calcium 8.5 Troponin I < 0.02 Clinical Impression(s) from Imaging Studies Chest X-Ray 07/20/17 21:03 IMPRESSION: Bibasilar nonspecific opacities may reflect underlying atelectasis and/or evolving pneumonia. Electronically Signed: Sheyla Long MD at 21:56 EDT Tel , Service support , Chest CTA 07/20/17 22:09 IMPRESSION: Pulmonary emboli within the right middle lobe. Bilateral groundglass opacities associated with dependent consolidation within the lower lobes likely reflects some combination of edema and/or pneumonia. Bilateral lower lobe atelectasis. Atherosclerosis. N.B. : The above information has been verbally conveyed by Sheyla Long MD to , Covering Physician, on 07/20/2017 23:43:28 (ET). Electronically Signed: Sheyla Long MD at 23:43 EDT Tel , Service support , N.B. : The above information has been verbally conveyed by Sheyla Long MD to , Covering Physician, on 07/20/2017 23:43:28 (ET). Assessment/Plan Active and Suspected Problems Pulmonary embolism (Acute) Chest pain (Acute) 1. Pulmonary embolism Patient is hemodynamically stable. I discussed with patient's sister, who is patient's power of hot stick man and advised the NOACs over Coumadin. Since it is guideline driven and I recommended over Coumadin but also ease of use without lab work as well. Patient will be started on Xarelto 15 mg twice daily. I would recommend patient follow-up with hematology as outpatient to see if the treatment should extend beyond 6 months given that this appears to be an unprovoked clot as patient apparently was properly anticoagulated with heparin during his most recent hospitalization. 2. Chest pain I feel that this is more musculoskeletal rather than due to his PE or even cardiac We will cycle troponins but if those are negative would not pursue any additional workup. 3. Chronic kidney disease stage III Status post renal transplant Continue with IV fluids and reevaluate the patient's creatinine in the morning Continue with the patient's renal transplantation medications It would appear that the patient is going to be hospitalized longer than the then I would recommend consulting nephrology for management of his transplantation medications I am holding off on consulting nephrology as I anticipate the patient being hospitalized less than 24 hours. 4. Pulmonary infiltrates Noted on CAT scan today. I reviewed the patient's CT of his abdomen pelvis the and there was evidence of infiltrates at that time Patient is hemodynamically stable and I am not convinced the patient has acute pneumonia in the absence of any fever or leukocytosis, granted that the patient is on immunosuppressive medications. I would be concerned about aspiration events. Patient's sister noted that with the patient's most recent hospitalization that he did have emesis prior to that. But also be concerned about some chronic aspiration as well Will consult speech therapy 5. UTI Continue with Cipro as had been ordered previously 6. Advanced care planning Discussed with patient's sister, who is the patient's power of hot stick man, discussed CPR and endotracheal intubation. Patient is to continue to be full CODE STATUS at this time. She does state that she he does have a follow-up appointment with his primary care doctor, Dr. Bella, in the coming week or 2 and they plan on discussing it with him at that time. Code Visit OBSV E&M: [id number] Initial observation care L3
[2017-07-21] MEDS: 0.9% Normal Saline 1,000 ML 1000 ML IV (00:34)
--- NOTE | 2017-07-21 00:34 | HP.PCM_ITS ---
Problem List (1) Pulmonary embolism Status: Acute (2) Chest pain Status: Acute (3) Pulmonary infiltrate present on computed tomography Status: Chronic (4) Acute UTI Status: Chronic (5) Kidney transplant recipient Status: Chronic (6) CKD (chronic kidney disease), stage III Status: Chronic (7) Congenital nystagmus Status: Chronic (8) DVT (deep venous thrombosis) Status: Chronic (9) Mild MRDD Status: Chronic (10) Neurogenic bladder disorder Status: Chronic Comment: managed with cic (11) Renal transplant, status post Status: Chronic History of Present Illness Date of Admission: 07/21/17 Chief Complaint: chest pain The patient is a 52 year old M who is a discharge on the with a urinary tract infection. Patient presents on the with chest pain. Patient describes chest pain is midsternal. Patient had an elevated d-dimer of 5. Dr. Armstrong, of nephrology was contacted by the emergency room, and was asked if patient could undergo a CT angiogram. Stated that would be fine but the patient ate and would need to be hydrated afterwards. Patient was found to have a right middle lobe pulmonary embolism. Patient is stable. Patient is being admitted for further IV fluids and to initiate anticoagulation for his pulmonary embolism. From the records from the patient's hospitalization, patient was on subcutaneous heparin for DVT prophylaxis. Patient does have a history of a DVT in his upper extremity. [] Past Medical History Past Medical History (Chronic Problems): Chronic Problems Pulmonary infiltrate present on computed tomography (Chronic) CKD (chronic kidney disease), stage III (Chronic) Acute UTI (Chronic) Kidney transplant recipient (Chronic) Congenital nystagmus (Chronic) Mild MRDD (Chronic) DVT (deep venous thrombosis) (Chronic) Renal transplant, status post (Chronic) Neurogenic bladder disorder (Chronic) managed with cic Allergies No Known Allergies Allergy (Verified 07/20/17 20:56) Home Medications: Ambulatory Orders Medication Instructions Recorded Mycophenolate Mofetil [Cellcept] 500 mg PO BID 07/14/16 Amlodipine [Norvasc] 5 mg PO 2100 12/01/16 Tacrolimus Anhydrous [Prograf] 2 mg PO BID 12/02/16 Sulfamethoxazole/Trimethoprim 1 tab PO DAILY 07/13/17 [Sulfamethoxazole-Tmp Ss Tablet] Ciprofloxacin [Cipro] 500 mg PO BID #16 tab 07/18/17 Lactobacillus Acidophilus 1 tab PO BID #60 tab 07/18/17 [Acidophilus] Surgical History: - - Right kidney transplant , dialysis access prior. Right upper extremity fistula Lives: Alone Smoking Status: Never smoker Tobacco Use: Non-smoker Alcohol: None Drugs: None - *Family History Maternal History Items: Hypertension Paternal History Items: Diabetes Review of Systems Constitutional: Denies: Chills, Fever Eyes: Denies: Blurred vision HEENT: Denies: Difficulty Hearing Cardiovascular: Reports: Chest Pain. Denies: Edema Respiratory: Reports: Cough Gastrointestinal: Denies: Abdominal Pain, Nausea, Vomiting Genitourinary: Denies: Dysuria, Hematuria Musculoskeletal: Denies: Joint Pain, Joint Tenderness Skin: Denies: Rash, Wounds Neurological: Denies: Numbness, Tingling, Focal weakness Psychiatric: Denies: Anxiety, Depression, Homicidal Ideations, Suicidal Ideations Hematologic/ Lymphatic: Reports: Hx of blood clot. Denies: Easy Bruising, Easy Bleeding VTE Information - Inpt Only VTE Present on Admission: Yes Patient Problems: Active and Suspected Problems Pulmonary embolism (Acute) Chest pain (Acute) - Physical Exam General: Alert, Cooperative, No apparent distress HEENT: Atraumatic, Normocephalic Neck: No Nodes, Thyroid Normal Size and Texture Lungs: Clear to auscultation, Normal air movement, No rhonchi, No wheeze Cardiovascular: Regular rate, Regular Rhythm, Normal S1, Normal S2, No murmurs Abdomen: Bowel Sounds Present, Soft, Non Tender, Non-Distended, No Hepato- splenomegaly Extremities: No edema, No Calf Tenderness, - - Fistula of right upper extremity with audible bruit. Skin: No rashes, No breakdown Musculoskeletal: - - Reproducible midsternal chest pain Psych/Mental Status: Normal Affect, Appropriate Vital Signs Temp Pulse Resp BP Pulse Ox 37.1 C 93 21 H 140/79 H 96 07/20/17 20:51 07/21/17 00:09 07/21/17 00:09 07/21/17 00:09 07/21/17 00:09 Oxygen Flow Rate (L/min) 2 Oxygen Delivery Method Room Air Weight: 82.2 kg Body Mass Index (BMI) 24.5 Laboratory Tests Past 24 Hrs 07/20/17 07/20/17 07/20/17 20:55 20:55 20:55 WBC 3.7 L RBC 5.03 Hgb 14.3 Hct 43.9 MCV 87.3 MCH 28.4 MCHC 32.6 RDW 14.4 RDW Differential 45.6 H Plt Count 238 MPV 10.6 Neut % (Auto) Not Reportable Absolute Neuts (auto) 2.2 Absolute Lymphs (auto) 0.93 Total Counted 100 Neutrophils % (Manual) 55 Band Neutrophils % 3 Lymphocytes % (Manual) 25 Monocytes % (Manual) 12 H Eosinophils % (Manual) 3 Basophils % (Manual) 2 H Diff Path Review May foll Plt Morphology Comment LARGE D-Dimer Quant (PE/DVT) 4.98 H* Sodium 143 Potassium 4.3 Chloride 111 H Carbon Dioxide 21.0 Anion Gap 11 BUN 20 H Creatinine 1.54 H Estim Creat Clear Calc 62.99 Est GFR (MDRD) Af Amer 62 Est GFR (MDRD) Non-Af 51 L BUN/Creatinine Ratio 13.0 Glucose 107 H Calcium 8.5 Troponin I < 0.02 Clinical Impression(s) from Imaging Studies Chest X-Ray 07/20/17 21:03 IMPRESSION: Bibasilar nonspecific opacities may reflect underlying atelectasis and/or evolving pneumonia. Electronically Signed: Sheyla Long MD at 21:56 EDT Tel , Service support , Chest CTA 07/20/17 22:09 IMPRESSION: Pulmonary emboli within the right middle lobe. Bilateral groundglass opacities associated with dependent consolidation within the lower lobes likely reflects some combination of edema and/or pneumonia. Bilateral lower lobe atelectasis. Atherosclerosis. N.B. : The above information has been verbally conveyed by Sheyla Long MD to , Covering Physician, on 07/20/2017 23:43:28 (ET). Electronically Signed: Sheyla Long MD at 23:43 EDT Tel , Service support , N.B. : The above information has been verbally conveyed by Sheyla Long MD to , Covering Physician, on 07/20/2017 23:43:28 (ET). Assessment/Plan Active and Suspected Problems Pulmonary embolism (Acute) Chest pain (Acute) 1. Pulmonary embolism * Patient is hemodynamically stable. I discussed with patient's sister, who is patient's power of litigation attorney and advised the NOACs over Coumadin. * Since it is guideline driven and I recommended over Coumadin but also ease of use without lab work as well. * Patient will be started on Xarelto 15 mg twice daily. * I would recommend patient follow-up with hematology as outpatient to see if the treatment should extend beyond 6 months given that this appears to be an unprovoked clot as patient apparently was properly anticoagulated with heparin during his most recent hospitalization. 2. Chest pain * I feel that this is more musculoskeletal rather than due to his PE or even cardiac * We will cycle troponins but if those are negative would not pursue any additional workup. 3. Chronic kidney disease stage III * Status post renal transplant * Continue with IV fluids and reevaluate the patient's creatinine in the morning * Continue with the patient's renal transplantation medications * It would appear that the patient is going to be hospitalized longer than the then I would recommend consulting nephrology for management of his transplantation medications * I am holding off on consulting nephrology as I anticipate the patient being hospitalized less than 24 hours. 4. Pulmonary infiltrates * Noted on CAT scan today. I reviewed the patient's CT of his abdomen pelvis the and there was evidence of infiltrates at that time * Patient is hemodynamically stable and I am not convinced the patient has acute pneumonia in the absence of any fever or leukocytosis, granted that the patient is on immunosuppressive medications. * I would be concerned about aspiration events. Patient's sister noted that with the patient's most recent hospitalization that he did have emesis prior to that. But also be concerned about some chronic aspiration as well * Will consult speech therapy 5. UTI * Continue with Cipro as had been ordered previously 6. Advanced care planning * Discussed with patient's sister, who is the patient's power of litigation attorney, discussed CPR and endotracheal intubation. Patient is to continue to be full CODE STATUS at this time. She does state that she he does have a follow-up appointment with his primary care doctor, Dr. Bella, in the coming week or 2 and they plan on discussing it with him at that time. Code Visit OBSV E&M: [id number] Initial observation care L3
[2017-07-21] MEDS: 0.9% Normal Saline 1,000 ML 150 ML IV ×2 (01:52→08:51)
[2017-07-21] MEDS: Rivaroxaban 15 MG Tablet PO (02:33)
[2017-07-21 06:13] LABS: Anion Gap 9 (5-15); BUN 19 mg/dL (7-18); BUN/Creat Ratio 14.1 RATIO (10-20); Calcium,Total 7.9 mg/dL (8.5-10.1); Chloride 112 mmol/L (98-107); Creatinine, Serum 1.35 mg/dL (0.70-1.30); EST Glomerular Filtration Rate 59 mL/min (>60); Est Glom Filt Rate - Afr Amer 72 mL/min (>60); Estimated Creatinine Clearance 71.85 ml/min; Glucose 85 mg/dL (74-106); Potassium 4.2 mmol/L (3.5-5.1); Sodium Level 140 mmol/L (136-145)
[2017-07-21] MEDS: Smz/Tmp Ds Tablet 0.5 TABLET PO (09:12)
[2017-07-21] MEDS: Ciprofloxacin 500 MG Tablet PO (09:12)
[2017-07-21] MEDS: Mycophenolate Mofetil 250 MG Capsule 500 MG PO (09:12)
[2017-07-21] MEDS: Tacrolimus Anhydrous 1 MG Capsule 2 MG PO (09:12)
--- NOTE | 2017-07-21 12:29 | PCM.DC ---
- Discharge Diagnoses Current Active Problems: Current Active and Chronic Problems Pulmonary embolism (Acute) Chest pain (Acute) Pulmonary infiltrate present on computed tomography (Chronic) You will use the following diet at home:: No restrictions Discharge Activity: Return to Normal Activity Call your doctor if you observe: Shortness of breath, Dizziness, Fainting spells, Chest pain Additional Instructions: You were found to have a blood clot in your lungs. You were started on xarelto which is a blood thinner. You will take Xarelto 15mg twice a day for 21 days. You will then take Xarelto 20mg once daily after that. Your primary care physician will continue prescription after your 21 days course of treatment. Recommend you follow up with a souvenir assembler that looks for reasons why you had a blood clot. Allergies/Adverse Reactions: Allergies No Known Allergies Allergy (Verified 07/20/17 20:56) Medications to take at Discharge Mycophenolate Mofetil [Cellcept] 500 mg PO BID 07/14/16 Amlodipine [Norvasc] 5 mg PO 2100 12/01/16 Tacrolimus Anhydrous [Prograf] 2 mg PO BID 12/02/16 Sulfamethoxazole/Trimethoprim [Sulfamethoxazole-Tmp Ss Tablet] 1 tab PO DAILY 07/13/17 Ciprofloxacin [Cipro] 500 mg PO BID #16 tab 07/18/17 Lactobacillus Acidophilus [Acidophilus] 1 tab PO BID #60 tab 07/18/17 Rivaroxaban [Xarelto] 15 mg PO BIDCM #42 tab 07/21/17 The following prescriptions were given: Rivaroxaban [Xarelto] 15 mg PO BIDCM #42 tab Primary Care Physician: Mike Bella MD [Primary Care Provider] - Please follow up with your Primary Care Physician in: 1 Week Please Follow Up With: Mariann Winters MD - Hematology When: 1-2 Weeks Please Follow Up With: Nakul Dennis MD When: As scheduled Please Follow Up With: Kidney doctor When: As scheduled Proposed Discharge Date: 07/21/17
--- NOTE | 2017-07-21 12:36 | DCINST_ITS ---
- Discharge Diagnoses Current Active Problems: Current Active and Chronic Problems Pulmonary embolism (Acute) Chest pain (Acute) Pulmonary infiltrate present on computed tomography (Chronic) You will use the following diet at home:: No restrictions Discharge Activity: Return to Normal Activity Call your doctor if you observe: Shortness of breath, Dizziness, Fainting spells , Chest pain Additional Instructions: You were found to have a blood clot in your lungs. You were started on xarelto which is a blood thinner. You will take Xarelto 15mg twice a day for 21 days. You will then take Xarelto 20mg once daily after that. Your primary care physician will continue prescription after your 21 days course of treatment. Recommend you follow up with a dispute resolution analyst that looks for reasons why you had a blood clot. Allergies/Adverse Reactions: Allergies No Known Allergies Allergy (Verified 07/20/17 20:56) Medications to take at Discharge Mycophenolate Mofetil [Cellcept] 500 mg PO BID 07/14/16 Amlodipine [Norvasc] 5 mg PO 2100 12/01/16 Tacrolimus Anhydrous [Prograf] 2 mg PO BID 12/02/16 Sulfamethoxazole/Trimethoprim [Sulfamethoxazole-Tmp Ss Tablet] 1 tab PO DAILY Ciprofloxacin [Cipro] 500 mg PO BID #16 tab 07/18/17 Lactobacillus Acidophilus [Acidophilus] 1 tab PO BID #60 tab 07/18/17 Rivaroxaban [Xarelto] 15 mg PO BIDCM #42 tab 07/21/17 The following prescriptions were given: Rivaroxaban [Xarelto] 15 mg PO BIDCM #42 tab Primary Care Physician: Mike Bella MD [Primary Care Provider] - Please follow up with your Primary Care Physician in: 1 Week Please Follow Up With: Mariann Winters MD - Hematology When: 1-2 Weeks Please Follow Up With: Nakul Dennis MD When: As scheduled Please Follow Up With: Kidney doctor When: As scheduled Proposed Discharge Date: 07/21/17
--- NOTE | 2017-07-21 12:36 | PCM.DC.SUM ---
Discharge Date and Diagnosis Date of Admission: 07/21/17 Date of Discharge: 07/21/17 - Primary Discharge Diagnosis Active and Suspected Problems 1. Acute pulmonary embolism - Secondary Discharge Diagnosis Chronic Problems Pulmonary infiltrate present on computed tomography (Chronic) CKD (chronic kidney disease), stage III (Chronic) Acute UTI (Chronic) Kidney transplant recipient (Chronic) Congenital nystagmus (Chronic) Mild MRDD (Chronic) DVT (deep venous thrombosis) (Chronic) Renal transplant, status post (Chronic) Neurogenic bladder disorder (Chronic) managed with cic Hospital Course and Treatment Imaging Results: Diagnostic Data Chest X-Ray 07/20/17 21:03 IMPRESSION: Bibasilar nonspecific opacities may reflect underlying atelectasis and/or evolving pneumonia. Electronically Signed: Sheyla Long MD at 21:56 EDT Tel , Service support , Chest CTA 07/20/17 22:09 IMPRESSION: Pulmonary emboli within the right middle lobe. Bilateral groundglass opacities associated with dependent consolidation within the lower lobes likely reflects some combination of edema and/or pneumonia. Bilateral lower lobe atelectasis. Atherosclerosis. N.B. : The above information has been verbally conveyed by Sheyla Long MD to , Covering Physician, on 07/20/2017 23:43:28 (ET). Electronically Signed: Sheyla Long MD at 23:43 EDT Tel , Service support , N.B. : The above information has been verbally conveyed by Sheyla Long MD to , Covering Physician, on 07/20/2017 23:43:28 (ET). Operations: None Procedures: None Summary of Care Provided: The patient is a 52 year old M who presented to the emergency room 07/21/2017 due to chest pain. Chest CTA showed pulmonary emboli within the right middle lobe and pulmonary infiltrates. Recent CT of abdomen 07/16/2017 also showed evidence of infiltrates at that time. Patient denies cough. No fever, no leukocytosis. Speech therapy evaluated patient for concern for aspiration. Lungs clear. No signs of aspiration were noted. Do not suspect pneumonia. Patient was started on Xarelto for pulmonary embolism. He will take 50 mg twice daily for 21 days followed by 20 mg daily. Prescription was sent for the first 21 days of treatment. Patient will need to follow with primary care physician in 1 week who can continue prescription thereafter. Patient was recommended to follow-up with hematology as outpatient to assess for causes of unprovoked clot. Troponin negative. EKG without evidence of ischemia. Patient was recently admitted for acute Enterobacter aerogenes cystitis and will continue Cipro as previously prescribed. Patient's other past medical history includes chronic renal failure stage III on chronic immunosuppressive therapy with CellCept and tacrolimus, history of DVT, mild MRDD, hypertension. General: Alert, Oriented x3, Cooperative, No apparent distress HEENT: Atraumatic, PERRLA, EOMI, Normocephalic Neck: Supple, No JVD, Negative Carotid Bruits Lungs: Clear to auscultation, Normal air movement Cardiovascular: Regular rate, Regular Rhythm, Normal S1, Normal S2, No murmurs Abdomen: Bowel Sounds Present, Soft, nontender Extremities: No clubbing, No cyanosis, No edema, Capillary Refill Less than 3 Seconds, Right forearm fistulogram Skin: No rashes, No breakdown Musculoskeletal: No Tenderness to Palpation of Joints or Extremities Neurological: Cranial nerves II-XII grossly intact, Neuro grossly intact Psych/Mental Status: Normal Affect, Appropriate Patient seen and examined prior to discharge. Physical assessment as noted above. Patient has not required supplemental oxygen during admission. He is stable for discharge home with recommendations as noted above. This patient was seen by JASS Arauz under the supervision of Dr. Rey. Discharge Diet: No Restrictions Discharge Activity: Return to Normal Activity Call your doctor if you observe: Shortness of breath, Dizziness, Fainting spells, Chest pain Home Medications: Medications to take at Discharge Mycophenolate Mofetil [Cellcept] 500 mg PO BID 07/14/16 Amlodipine [Norvasc] 5 mg PO 2100 12/01/16 Tacrolimus Anhydrous [Prograf] 2 mg PO BID 12/02/16 Sulfamethoxazole/Trimethoprim [Sulfamethoxazole-Tmp Ss Tablet] 1 tab PO DAILY 07/13/17 Ciprofloxacin [Cipro] 500 mg PO BID #16 tab 07/18/17 Lactobacillus Acidophilus [Acidophilus] 1 tab PO BID #60 tab 07/18/17 Rivaroxaban [Xarelto] 15 mg PO BIDCM #42 tab 07/21/17 Following Prescrptions Were Given to Patient: Rivaroxaban [Xarelto] 15 mg PO BIDCM #42 tab Primary Care Physician: Mike Bella MD [Primary Care Provider] - Please follow up with your Primary Care Physician in: 1 Week Please Follow Up With: Mariann Winters MD - Hematology When: 1-2 Weeks Please Follow Up With: Nakul Dennis MD When: As scheduled Please Follow Up With: Kidney doctor When: As scheduled Disposition: Home Minutes spent on discharge:: 35 Patient Condition:: Stable Medical Necessity - Tobacco Use Smoking Status: Never smoker Tobacco Use: Non-smoker Meaningful Use Info Meaningful Use Diagnoses (Choose all that apply): VTE - VTE Anticoag overlap given w/in hospital stay or rx'd at dc?: Yes Pt receive overlap for 5 days?: No Reason overlap not ordered, prescribed, or given for 5 days: Treatment Not Indicated
--- NOTE | 2017-07-21 12:45 | CASEMGMT ---
JASMEET PINTO called [facility] to inquire on the pricing for Xarelto. The patient's copay will be $40. Patient given coupon for free 30 day trial and pricing information for thereafter. CLINTON Connell, RN-BC, CCM
--- NOTE | 2017-07-21 12:48 | DS.PCM_ITS ---
Discharge Date and Diagnosis Date of Admission: 07/21/17 Date of Discharge: 07/21/17 - Primary Discharge Diagnosis Active and Suspected Problems 1. Acute pulmonary embolism - Secondary Discharge Diagnosis Chronic Problems Pulmonary infiltrate present on computed tomography (Chronic) CKD (chronic kidney disease), stage III (Chronic) Acute UTI (Chronic) Kidney transplant recipient (Chronic) Congenital nystagmus (Chronic) Mild MRDD (Chronic) DVT (deep venous thrombosis) (Chronic) Renal transplant, status post (Chronic) Neurogenic bladder disorder (Chronic) managed with cic Hospital Course and Treatment Imaging Results: Diagnostic Data Chest X-Ray 07/20/17 21:03 IMPRESSION: Bibasilar nonspecific opacities may reflect underlying atelectasis and/or evolving pneumonia. Electronically Signed: Sheyla Long MD at 21:56 EDT Tel , Service support , Chest CTA 07/20/17 22:09 IMPRESSION: Pulmonary emboli within the right middle lobe. Bilateral groundglass opacities associated with dependent consolidation within the lower lobes likely reflects some combination of edema and/or pneumonia. Bilateral lower lobe atelectasis. Atherosclerosis. N.B. : The above information has been verbally conveyed by Sheyla Long MD to , Covering Physician, on 07/20/2017 23:43:28 (ET). Electronically Signed: Sheyla Long MD at 23:43 EDT Tel , Service support , N.B. : The above information has been verbally conveyed by Sheyla Long MD to , Covering Physician, on 07/20/2017 23:43:28 (ET). Operations: None Procedures: None Summary of Care Provided: The patient is a 52 year old M who presented to the emergency room 07/21/2017 due to chest pain. Chest CTA showed pulmonary emboli within the right middle lobe and pulmonary infiltrates. Recent CT of abdomen 07/16/2017 also showed evidence of infiltrates at that time. Patient denies cough. No fever, no leukocytosis. Speech therapy evaluated patient for concern for aspiration. Lungs clear. No signs of aspiration were noted. Do not suspect pneumonia. Patient was started on Xarelto for pulmonary embolism. He will take 50 mg twice daily for 21 days followed by 20 mg daily. Prescription was sent for the first 21 days of treatment. Patient will need to follow with primary care physician in 1 week who can continue prescription thereafter. Patient was recommended to follow-up with hematology as outpatient to assess for causes of unprovoked clot. Troponin negative. EKG without evidence of ischemia. Patient was recently admitted for acute Enterobacter aerogenes cystitis and will continue Cipro as previously prescribed. Patient's other past medical history includes chronic renal failure stage III on chronic immunosuppressive therapy with CellCept and tacrolimus, history of DVT, mild MRDD, hypertension. General: Alert, Oriented x3, Cooperative, No apparent distress HEENT: Atraumatic, PERRLA, EOMI, Normocephalic Neck: Supple, No JVD, Negative Carotid Bruits Lungs: Clear to auscultation, Normal air movement Cardiovascular: Regular rate, Regular Rhythm, Normal S1, Normal S2, No murmurs Abdomen: Bowel Sounds Present, Soft, nontender Extremities: No clubbing, No cyanosis, No edema, Capillary Refill Less than 3 Seconds, Right forearm fistulogram Skin: No rashes, No breakdown Musculoskeletal: No Tenderness to Palpation of Joints or Extremities Neurological: Cranial nerves II-XII grossly intact, Neuro grossly intact Psych/Mental Status: Normal Affect, Appropriate Patient seen and examined prior to discharge. Physical assessment as noted above. Patient has not required supplemental oxygen during admission. He is stable for discharge home with recommendations as noted above. This patient was seen by JASS Arauz under the supervision of Dr. Rey. Discharge Diet: No Restrictions Discharge Activity: Return to Normal Activity Call your doctor if you observe: Shortness of breath, Dizziness, Fainting spells , Chest pain Home Medications: Medications to take at Discharge Mycophenolate Mofetil [Cellcept] 500 mg PO BID 07/14/16 Amlodipine [Norvasc] 5 mg PO 2100 12/01/16 Tacrolimus Anhydrous [Prograf] 2 mg PO BID 12/02/16 Sulfamethoxazole/Trimethoprim [Sulfamethoxazole-Tmp Ss Tablet] 1 tab PO DAILY Ciprofloxacin [Cipro] 500 mg PO BID #16 tab 07/18/17 Lactobacillus Acidophilus [Acidophilus] 1 tab PO BID #60 tab 07/18/17 Rivaroxaban [Xarelto] 15 mg PO BIDCM #42 tab 07/21/17 Following Prescrptions Were Given to Patient: Rivaroxaban [Xarelto] 15 mg PO BIDCM #42 tab Primary Care Physician: Mike Bella MD [Primary Care Provider] - Please follow up with your Primary Care Physician in: 1 Week Please Follow Up With: Mariann Winters MD - Hematology When: 1-2 Weeks Please Follow Up With: Nakul Dennis MD When: As scheduled Please Follow Up With: Kidney doctor When: As scheduled Disposition: Home Minutes spent on discharge:: 35 Patient Condition:: Stable Medical Necessity - Tobacco Use Smoking Status: Never smoker Tobacco Use: Non-smoker Meaningful Use Info Meaningful Use Diagnoses (Choose all that apply): VTE - VTE Anticoag overlap given w/in hospital stay or rx'd at dc?: Yes Pt receive overlap for 5 days?: No Reason overlap not ordered, prescribed, or given for 5 days: Treatment Not Indicated
[2017-07-22 10:50] LABS: Pathologist Review Reviewed
== END 2017-07-21 12:35 | disposition home or self-care (01) ==
LOC: ED 21:21 → PCU 07-21 00:46
PROVIDERS: Emergency Provider Emergency Medicine; Family Provider Family Medicine; PCP Family Medicine; Visit Provider Internal Medicine
DX: I26.99 Other pulmonary embolism without acute cor pulmonale (principal); I12.9 Hypertensive chronic kidney disease with stage 1 through stage 4 chronic kidney disease, or unspecified chronic kidney disease; N18.3 Chronic kidney disease, stage 3 (moderate); N31.9 Neuromuscular dysfunction of bladder, unspecified; H55.01 Congenital nystagmus; F70 Mild intellectual disabilities; N39.0 Urinary tract infection, site not specified; Z94.0 Kidney transplant status; Z79.899 Other long term (current) drug therapy; Z86.718 Personal history of other venous thrombosis and embolism
CPT/HCPCS: 36415; 71045; 71275; 80048; 84484; 85025; 85379; 93005; 96361; 96374; 96375; 97802; 99218; 99251; 99285; J7030; Q9967; A4216; G0378; G0463; J2405

== ENCOUNTER 2017-07-22 08:09 | Outpatient (RCR) | payer MEDICARE, OTHER, SELFPAY ==
[2017-07-22 08:33] LABS: Hematocrit 46.2 % (40-54); Hemoglobin 14.4 g/dl (13.0-16.5); Mean Corp Hgb Conc 31.2 g/gl (32-36); Mean Corpuscular Hgb 28.2 pg (27.0-32.0); Mean Corpuscular Volume 90.4 fL (80-94); Platelet Count 283 K/mm3 (150-450); RBC Distribution Width CV 14.5 % (11.6-14.6); RBC Distribution Width SD 47.8 fl (35.1-43.9); Red Blood Count 5.11 M/mm3 (4.6-6.2); White Blood Count 4.1 K/mm3 (4.4-11.0)
[2017-07-22 08:34] LABS: Scan Indicated on CBC? Y/N NO
[2017-07-22 09:10] LABS: Albumin, Serum 3.5 g/dL (3.2-5.0); BUN 14 mg/dL (7-18); BUN/Creat Ratio 9.8 RATIO (10-20); Chloride 108 mmol/L (98-107); Creatinine, Serum 1.43 mg/dL (0.70-1.30); EST Glomerular Filtration Rate 56 mL/min (>60); Est Glom Filt Rate - Afr Amer 67 mL/min (>60); Glucose 111 mg/dL (74-106); Phosphorus 2.3 mg/dL (2.5-4.9); Potassium 4.1 mmol/L (3.5-5.1); Sodium Level 141 mmol/L (136-145)
[2017-07-24 08:35] LABS: Tacrolimus (FK506) 6.5 ng/mL (2.0-20.0)
== END 2017-07-22 09:00 | disposition home or self-care (01) ==
LOC: LAB 08:09
PROVIDERS: Family Provider Family Medicine; PCP Family Medicine
DX: D89.9 Disorder involving the immune mechanism, unspecified (principal); Z94.0 Kidney transplant status
CPT/HCPCS: 36415; 80069; 80197; 85027

== ENCOUNTER 2017-07-28 01:41 | Emergency (ER) | payer MEDICARE, OTHER, SELFPAY ==
[2017-07-28 01:42] VITALS: BP 129/79; PULSE 104; RESP 18; TEMP 37; O2SAT 98; BMI 23.6
--- NOTE | 2017-07-28 02:07 | EKG12_ITS ---
Test Reason : CP Blood Pressure : / mmHG Vent. Rate : 099 BPM Atrial Rate : 099 BPM P-R Int : 128 ms QRS Dur : 082 ms QT Int : 370 ms P-R-T Axes : 061 027 064 degrees QTc Int : 474 ms Normal sinus rhythm Normal ECG Confirmed by SUSAN MORENO, RAEANN ([id number]), senior technical editor EUGENIO CONKLIN ([id number]) on 07/29/2017 3:19:34 PM Referred By: SUMAN RAO Confirmed By:RAEANN DAVIS MD
--- NOTE | 2017-07-28 02:07 | RAD_ITS ---
STUDY: X-RAY CHEST REASON FOR EXAM: Male, 52 years old. Chest pain. TECHNIQUE: AP portable chest. COMPARISON: July 20, 2017. CT chest July 20, 2017. FINDINGS: Transversely oriented fine lines at the lung bases suggestive of mild vascular congestion. No focal infiltrates or effusions. There is probably bibasilar subsegmental atelectasis. Normal size heart. Normal mediastinum and alton. Normal visualized pulmonary arteries. Normal visualized aortic arch and descending thoracic aorta. Old mild compression fractures in the midthoracic spine. Normal visualized ribs, clavicles, and shoulders. There is no demonstrated abnormality of the visualized soft tissue structures of the upper abdomen. RAD/Chest 1 View (Portable) IMPRESSION: Mild vascular congestion suggested on the prior CT scan unchanged. Bibasilar subsegmental atelectasis. Electronically Signed: Peter Gamez MD at 2:34 EDT , Service support ,
[2017-07-28] MEDS: Morphine 4 MG/ML Syringe IV ×2 (02:21→03:14)
[2017-07-28 02:32] LABS: Absolute Neutrophil Count 2.2 X10^3/uL (2.0-7.7); Basophil# 0.04 X10^3/uL; Eosinophil# 0.07 X10^3/uL; Eosinophils% 1.7 % (0-5); Hematocrit 43.3 % (40-54); Hemoglobin 13.9 g/dl (13.0-16.5); Mean Corp Hgb Conc 32.1 g/gl (32-36); Mean Corpuscular Volume 87.1 fL (80-94); Monocyte# 0.82 X10^3/uL; Monocyte% 20.4 % (0-10); Neutrophil % 54.9 % (47-70); Platelet Count 324 K/mm3 (150-450); RBC Distribution Width CV 13.9 % (11.6-14.6); RBC Distribution Width SD 44.5 fl (35.1-43.9); Red Blood Count 4.97 M/mm3 (4.6-6.2)
[2017-07-28 02:34] LABS: POSITIVE COUNT YES; POSITIVE DIFFERENTIAL NO; POSITIVE MORPHOLOGY YES
[2017-07-28 02:58] LABS: Anion Gap 9 (5-15); BUN 30 mg/dL (7-18); BUN/Creat Ratio 16.4 RATIO (10-20); Calcium,Total 8.1 mg/dL (8.5-10.1); Chloride 111 mmol/L (98-107); Creatinine, Serum 1.83 mg/dL (0.70-1.30); EST Glomerular Filtration Rate 42 mL/min (>60); Est Glom Filt Rate - Afr Amer 51 mL/min (>60); Estimated Creatinine Clearance 53.01 ml/min; Glucose 94 mg/dL (74-106); Sodium Level 141 mmol/L (136-145)
--- NOTE | 2017-07-28 03:04 | ED.DCSUM_ITS ---
- ER Visit Summary Date of Service: 07/28/17 Chief Complaint: [] Chest pain History of Present Illness: The patient is a 52 M recently diagnosed with a pulmonary embolism earlier last week on Xarelto with chest pain that started 9 PM tonight. It is a sharp pain in the middle of his chest. No home treatment. Comes in for further evaluation. Physical Examination: Vital signs reviewed General: Well-nourished well-developed Head: Normocephalic atraumatic Eyes: Pupils equal round and reactive to light extraocular movements intact ENT: TMs clear no hemotympanum no trauma Neck: Nontender full range of motion Cardiovascular: Regular rate rhythm no murmurs normal S1-S2 Respiratory: No distress clear to auscultation bilaterally chest nontender Abdomen: Soft nontender nondistended normal bowel sounds no masses Back: Nontender no CVA tenderness Extremities: Nontender active range of motion ?4 extremities no trauma Skin: Normal color no trauma Neuro alert oriented cranial nerves II through XII intact normal strength sensation reflexes Test Results: [] Emergency Department Course and Treatment: [] EKG shows sinus 99 with no ischemia. Troponin negative. Normal except white count 4.0. Chemistries normal except creatinine 1.8. This is up from 1.4. X-ray shows no acute disease. At this time I feel the patient likely has pain from his pulmonary embolism. Given a dose of morphine with good resolution. Will follow-up as an outpatient. Treatment Plan: [] Disposition: [] Impression: [] Pulmonary embolism with chest pain This note was generated with [employer] dictation software. It may contain incorrect words, spelling, and punctuation that were not noted in review of the chart prior to signing ED Disposition - Plan for ED Patient: Chief Complaint: Chest Pain Referrals: Mike Bella MD [Primary Care Provider] -
--- NOTE | 2017-07-28 03:05 | ED.DEP ---
ED Disposition - Plan for ED Patient: Disposition: Home or Assisted Living Chief Complaint: Chest Pain Instructions: Pulmonary Embolism Referrals: Mike Bella MD [Primary Care Provider] -
[2017-07-28 03:08] VITALS: BP 127/68; BP 132/78; PULSE 95; PULSE 97; RESP 14; RESP 15; O2SAT 96; O2SAT 99
[2017-07-28 12:04] LABS: Pathologist Review Reviewed
== END 2017-07-28 03:20 | disposition home or self-care (01) ==
PROVIDERS: Emergency Provider Emergency Medicine; Family Provider Family Medicine; PCP Family Medicine
DX: I26.99 Other pulmonary embolism without acute cor pulmonale (principal); R07.9 Chest pain, unspecified; N18.9 Chronic kidney disease, unspecified; N31.9 Neuromuscular dysfunction of bladder, unspecified; F70 Mild intellectual disabilities; Z94.0 Kidney transplant status; Z87.440 Personal history of urinary (tract) infections; Z86.718 Personal history of other venous thrombosis and embolism; Z79.01 Long term (current) use of anticoagulants; Z79.899 Other long term (current) drug therapy
CPT/HCPCS: 71045; 80048; 84484; 85025; 93005; 96374; 99284; J7030; A4216

== ENCOUNTER 2017-08-17 23:39 | Observation (INO) | payer MEDICARE, OTHER, SELFPAY ==
[2017-08-17 23:40] VITALS: BP 161/96; PULSE 90; RESP 15; TEMP 36.8; O2SAT 98; BMI 24.3
[2017-08-18] VITALS (13 sets, daily range): BP systolic 122–144; BP diastolic 68–89; PULSE 86–105; RESP 14–20; TEMP 36.6–37.1; O2SAT 93–98; BMI 23.6
--- NOTE | 2017-08-18 00:02 | EKG12_ITS ---
Test Reason : CP Blood Pressure : / mmHG Vent. Rate : 095 BPM Atrial Rate : 095 BPM P-R Int : 128 ms QRS Dur : 084 ms QT Int : 366 ms P-R-T Axes : 062 022 057 degrees QTc Int : 459 ms Normal sinus rhythm with sinus arrhythmia Normal ECG Confirmed by NATASHA REID ([id number]), order editor EUGENIO CONKLIN ([id number]) on 08/19/2017 2:15:50 PM Referred By: PAUL Confirmed By:NATASHA REID
--- NOTE | 2017-08-18 00:02 | RAD_ITS ---
XR Chest 2 Views INDICATION: arrives with chest pain that started around 2200 tonight. c/o sob T nausea COMPARISON: July 28, 2017 TECHNIQUE: 2 views of the chest FINDINGS: Heart size and pulmonary vascularity are within normal limits. Lungs are mildly hyperinflated, otherwise clear. There is no evidence of focal airspace consolidation or pleural effusion. Osseous structures are grossly unremarkable. RAD/Chest PA and Lateral IMPRESSION: No radiographic evidence of acute intrathoracic disease. at 0043 Reported and signed by: Iram Barr MD Electronically Signed: Iram Barr MD at 0:42 EDT Tel , Service support ,
--- NOTE | 2017-08-18 00:03 | ED.VISSUMM ---
- ER Visit Summary Date of Service: 08/18/17 Chief Complaint: Chest pain History of Present Illness: The patient is a 52 M with history of pulmonary embolism and renal transplant who presents for sudden onset of left-sided chest pain 2 hours prior to presentation. Patient was walking home from work at onset. Pain is continuous and sharp, located in the left chest, and nonradiating. Patient has associated shortness of breath and has had a cough for a few days. Sister states he has recently had a cold. He is on Xarelto for a pulmonary embolism, diagnosed 3 weeks ago. Has not missed any doses. He had a kidney transplant 16 months ago. He has been having hematuria. Patient denies fever, vomiting, diarrhea, dysuria. Physical Examination: Vital signs: afebrile, hemodynamically stable, no hypoxia on room air General: well nourished, well developed, appears uncomfortable Skin: warm, dry, flushed, no rash, no pallor HEENT: normocephalic and atraumatic; PERRL, EOMI, moist mucous membranes Cardiovascular: tachycardic rate and regular rhythm without murmurs, no peripheral edema, 2+ pulses all distal extremities Respiratory: No increased work of breathing, lungs have mild wheezing/rhonchi on right Abdominal: Abdomen is soft, tender in LUQ, with normoactive bowel sounds, no guarding or rebound, no masses MSK: Moves all extremities, no deformities, normal strength, fistula in right forearm Neuro: Awake and alert, oriented ?4. No facial droop, sensation and motor function intact and symmetric, horizontal nystagmus with forward gaze Test Results: Abnormal Lab Results 08/17/17 08/17/17 08/17/17 23:40 23:40 23:40 WBC 6.5 RBC 4.60 Hgb 13.2 Hct 40.7 MCV 88.5 MCH 28.7 MCHC 32.4 RDW 14.4 RDW Differential 46.0 H Plt Count 155 MPV 11.2 Immature Gran % (Auto) 0.300 Neut % (Auto) 66.4 Lymph % (Auto) 16.8 L Humphreys % (Auto) 13.9 H Eos % (Auto) 2.0 Baso % (Auto) 0.6 Absolute Neuts (auto) 4.3 Absolute Lymphs (auto) 1.10 Total Counted Not Reportable PT 16.4 H INR 1.3 APTT 33.6 Sodium 142 Potassium 3.8 Chloride 109 H Carbon Dioxide 22.0 Anion Gap 11 BUN 24 H Creatinine 1.67 H Estim Creat Clear Calc 58.08 Est GFR (MDRD) Af Amer 56 L Est GFR (MDRD) Non-Af 47 L BUN/Creatinine Ratio 14.4 Glucose 90 Calcium 7.7 L Total Bilirubin 0.70 AST 21 ALT 23 Alkaline Phosphatase 54 Troponin I < 0.02 Total Protein 7.1 Albumin 3.9 Globulin 3.2 Albumin/Globulin Ratio 1.2 Lipase 396 H Urine Color Urine Clarity Urine pH Ur Specific [place] Urine Protein Urine Glucose (UA) Urine Ketones Urine Occult Blood Urine Nitrite Urine Bilirubin Urine Urobilinogen Ur Leukocyte Esterase Urine RBC Urine WBC Ur Squamous Epith Cells Urine Bacteria Urine Mucus 08/18/17 01:20 WBC RBC Hgb Hct MCV MCH MCHC RDW RDW Differential Plt Count MPV Immature Gran % (Auto) Neut % (Auto) Lymph % (Auto) Humphreys % (Auto) Eos % (Auto) Baso % (Auto) Absolute Neuts (auto) Absolute Lymphs (auto) Total Counted PT INR APTT Sodium Potassium Chloride Carbon Dioxide Anion Gap BUN Creatinine Estim Creat Clear Calc Est GFR (MDRD) Af Amer Est GFR (MDRD) Non-Af BUN/Creatinine Ratio Glucose Calcium Total Bilirubin AST ALT Alkaline Phosphatase Troponin I Total Protein Albumin Globulin Albumin/Globulin Ratio Lipase Urine Color Brown Urine Clarity Cloudy Urine pH 5.0 Ur Specific [place] 1.015 Urine Protein 100 H Urine Glucose (UA) Normal Urine Ketones Negative Urine Occult Blood 250 H Urine Nitrite Negative Urine Bilirubin Negative Urine Urobilinogen Normal Ur Leukocyte Esterase 100 H Urine RBC > 100 SEEN Urine WBC 10-25 SEEN Ur Squamous Epith Cells 0-5 SEEN Urine Bacteria 0 SEEN Urine Mucus 0 SEEN Emergency Department Course and Treatment: Patient was given IV fluids and morphine with Zofran for his chest pain. EKG showed a sinus rhythm without any ischemia or ectopy. Labs showed negative troponin. No leukocytosis. Renal function is at patient's baseline. Urinalysis positive for hematuria as reported in history by sister. Chest x-ray showed no infiltrates or effusions. Patient did have the adventitious sounds noted on the right trevizo on auscultation, which may indicate a viral respiratory process or a pneumonia that is not evident on chest radiograph. Patient continued to have chest pain and remained mildly tachycardic on monitoring and evaluation advisor. He received additional morphine without improvement. Given patient's intractable chest pain, mild tachycardia with concern for possible respiratory infection, and patient's complex medical history, he was discussed with the hospitalist for admission for further management of his chest pain. We discussed empiric antibiotic treatment for possible pneumonia and the decision was made to not give antibiotics at this time. Patient admitted to telemetry for further workup and management. Treatment Plan: [] Disposition: [] Impression: Intractable chest pain, pleurisy This note was generated with [employer] ([employer]) dictation software. It may contain incorrect words, spelling, and punctuation that were not noted in review of the chart prior to signing ED Disposition - Plan for ED Patient: Disposition: Acute Care Hospital [facility] Chief Complaint: Chest Pain
[2017-08-18 00:11] LABS: Absolute Neutrophil Count 4.3 X10^3/uL (2.0-7.7); Basophil# 0.04 X10^3/uL; Basophil% 0.6 % (0-1); Eosinophil# 0.13 X10^3/uL; Hematocrit 40.7 % (40-54); Hemoglobin 13.2 g/dl (13.0-16.5); Lymphocyte % 16.8 % (19-41); Mean Corp Hgb Conc 32.4 g/gl (32-36); Mean Corpuscular Hgb 28.7 pg (27.0-32.0); Mean Corpuscular Volume 88.5 fL (80-94); Mean Platelet Vol. 11.2 fl (6.2-12.0); Monocyte# 0.91 X10^3/uL; Monocyte% 13.9 % (0-10); Neutrophil # 4.34 X10^3/uL (2.7-7.7); Neutrophil % 66.4 % (47-70); POSITIVE COUNT NO; POSITIVE DIFFERENTIAL NO; POSITIVE MORPHOLOGY NO; Platelet Count 155 K/mm3 (150-450); RBC Distribution Width CV 14.4 % (11.6-14.6); White Blood Count 6.5 K/mm3 (4.4-11.0)
[2017-08-18] MEDS: Ondansetron 4 MG/2 ML Vial IV (00:11)
[2017-08-18] MEDS: Morphine 4 MG/ML Syringe IV ×2 (00:11→01:17)
[2017-08-18] MEDS: 0.9% Normal Saline 1,000 ML 1000 ML IV (00:12)
[2017-08-18 00:18] LABS: International Normalized Ratio 1.3; Partial Thromboplast Time 33.6 Seconds (24.1-36.2); Prothrombin Time (Protime)PT. 16.4 SECONDS (11.7-14.9)
[2017-08-18 00:23] LABS: ALB/GLOB Ratio 1.2 RATIO (0.9-2.4); AST(SGOT) 21 U/L (15-37); Alanine Aminotransfer ALT/SGPT 23 U/L (16-61); Albumin, Serum 3.9 g/dL (3.2-5.0); Alkaline Phosphatase 54 U/L (45-117); Anion Gap 11 (5-15); BUN 24 mg/dL (7-18); BUN/Creat Ratio 14.4 RATIO (10-20); Calcium,Total 7.7 mg/dL (8.5-10.1); Chloride 109 mmol/L (98-107); Creatinine, Serum 1.67 mg/dL (0.70-1.30); EST Glomerular Filtration Rate 47 mL/min (>60); Est Glom Filt Rate - Afr Amer 56 mL/min (>60); Estimated Creatinine Clearance 58.08 ml/min; Globulin 3.2 g/dL (2.2-4.2); Glucose 90 mg/dL (74-106); Lipase 396 U/L (73-393); Potassium 3.8 mmol/L (3.5-5.1); Protein, Total 7.1 g/dL (6.4-8.2); Sodium Level 142 mmol/L (136-145)
[2017-08-18 01:28] LABS: Bacteria 0 SEEN /hpf (None Seen); Mucous, Urine 0 SEEN /hpf (<or=2+)
[2017-08-18 01:30] LABS: Color, Urine Brown (Yellow); Glucose, Dipstick Normal (Normal); Ketone-Dipstick Negative (Negative); Leukocyte Esterase-Dipstick 100 /ul (Negative); Nitrite-Dipstick Negative (Negative); Occult Blood-Urine 250 /ul (Negative); Protein-Dipstick 100 mg/dl (Negative); Specific Gravity, Urine 1.015 (1.002-1.030); Urine Bilirubin Dipstick Negative (Negative); Urine Clarity Cloudy (Clear); Urine Urobilinogen Normal (Normal)
[2017-08-18 01:39] LABS: Red Blood Cells-Urine > 100 SEEN /hpf (0-5); Squamous Epithelial Cells - UA 0-5 SEEN /hpf (0-5); White Blood Cells 10-25 SEEN /hpf (0-5)
[2017-08-18] MEDS: morphine 8 MG/ML Syringe 6 MG IV (03:08)
--- NOTE | 2017-08-18 04:02 | HP.PCM_ITS ---
Problem List (1) Right-sided chest pain Status: Acute (2) Nonproductive cough Status: Acute History of Present Illness Date of Admission: 08/18/17 Chief Complaint: Nonproductive cough, right sided chest pain The patient is a 52 year old M who was seen in the emergency room at [facility] after being brought in by his sister due to complaints of right sided chest pain-sharp in nature-and nonproductive cough. Symptoms started about 10 PM on 08/17/17, due to the patient's MRDD, history was obtained from the patient's sister who was present during the time of my examination. Evaluation in the emergency room included a chest x-ray which was negative for any infiltrates, labs were obtained showing a normal white blood cell count of 6.5, BUN was 24, creatinine is 1.67. Patient's urinalysis showed more than 100 RBCs and 10-25 WBCs. Lipase was 396. EKG showed a normal sinus rhythm without evidence of ischemic changes or injury pattern. Patient was given a total of 8 mg of morphine IV in the emergency room without resolution of his chest discomfort. On my examination, patient had expiratory wheezes scattered throughout both lung trevizo, I felt the patient's chest discomfort was atypical of cardiac pain but more likely be secondary to a pleurisy or upper respiratory tract infection. Due to the fact the patient lives alone, I felt it necessary to admit the patient for pain control and to perform a respiratory panel to make sure he did not have a viral illness. Patient is taking immunosuppressant drugs due to a renal transplant which he had 16 months ago. It should also be noted, that the patient had a pulmonary embolism diagnosed in July 2017 and has been on Xarelto since that time. Patient will be admitted for pleurisy with uncontrolled pain, aerosol treatments will be ordered, cardiac enzymes will be cycled, patient will have a respiratory panel ordered in the morning. Patient will be given IV morphine or p.o. OxyIR for pain Past Medical History Past Medical History (Chronic Problems): Chronic Problems Pulmonary infiltrate present on computed tomography (Chronic) CKD (chronic kidney disease), stage III (Chronic) Acute UTI (Chronic) Kidney transplant recipient (Chronic) Congenital nystagmus (Chronic) Mild MRDD (Chronic) DVT (deep venous thrombosis) (Chronic) Renal transplant, status post (Chronic) Neurogenic bladder disorder (Chronic) managed with cic Allergies No Known Allergies Allergy (Verified 08/17/17 23:44) Home Medications: Ambulatory Orders Medication Instructions Recorded Mycophenolate Mofetil [Cellcept] 500 mg PO BID 07/14/16 Amlodipine [Norvasc] 5 mg PO 2100 12/01/16 Tacrolimus Anhydrous [Prograf] 2 mg PO BID 12/02/16 Sulfamethoxazole/Trimethoprim 1 tab PO DAILY 07/13/17 [Sulfamethoxazole-Tmp Ss Tablet] Lactobacillus Acidophilus 1 tab PO BID #60 tab 07/18/17 [Acidophilus] Rivaroxaban [Xarelto] 20 mg PO DAILY 08/17/17 Surgical History: - - Right kidney transplant [facility], dialysis access prior. Right upper extremity fistula Psychiatric History: No pertinent psych hx, - - MRDD Lives: Alone Smoking Status: Never smoker Tobacco Use: Non-smoker Alcohol: None Drugs: None - *Family History Maternal History Items: Hypertension Paternal History Items: Diabetes Review of Systems Comment: Complete review of systems was unobtainable from the patient due to MRDD, information was obtained from the patient's sister who is present at the time of my examination of the patient, patient was able to answer some questions appropriately VTE Information - Inpt Only VTE Present on Admission: No VTE Mechan Device Prophylaxis: None VTE Pharm Prophylaxis ordered?: No Reason prophylaxis not ordered:: Medical Contraindication - on Xarelto Patient Problems: Active and Suspected Problems Right-sided chest pain (Acute) Nonproductive cough (Acute) - Physical Exam General: Alert, Cooperative, Well developed, - - evidence of developmental delay present HEENT: Atraumatic, PERRLA, EOMI Oral: Moist Mucosa Neck: Supple, No JVD, Negative Carotid Bruits, No Nuchal Rigidity, Trachea Midline, Thyroid Normal Size and Texture Lungs: Normal air movement, No rhonchi, No rales, Wheezes - Scattered expiratory wheezes are noted bilaterally Cardiovascular: Regular rate, Regular Rhythm, Normal S1, Normal S2, No murmurs, No Ectopic Activity, PMI Normal, No rub noted, No Gallop Abdomen: Bowel Sounds Present, Soft, Non Tender, Non-Distended, No hernias noted Extremities: No clubbing, No cyanosis, No edema, Capillary Refill Less than 3 Seconds Skin: No rashes, No breakdown Musculoskeletal: Tenderness - There is tenderness to palpation over the patient' s right lower chest wall area Neurological: Cranial nerves II-XII grossly intact, Neuro grossly intact, Sensory exam intact to light touch and pain, Coordination normal Psych/Mental Status: Flat Affect, - - Patient is alert, he answers most questions appropriately, there is evidence of developmental delay present Vital Signs Temp Pulse Resp BP Pulse Ox 98.2 F 105 H 18 132/84 H 93 08/17/17 23:40 08/18/17 03:08 08/18/17 03:08 08/18/17 03:08 08/18/17 03:08 Oxygen Flow Rate (L/min) 2 Oxygen Delivery Method Nasal Cannula Weight: 79 kg Body Mass Index (BMI) 23.6 Assessment/Plan Active and Suspected Problems Right-sided chest pain (Acute) Nonproductive cough (Acute) # 1 chest pain-probably pleuritic in nature-patient will be placed into observation status, respiratory panel will be obtained, patient will be given aerosol treatments, patient will be monitored for fever due to his use of antirejection drugs for his renal transplant. Cardiac enzymes will be cycled, he will be monitored on telemetry #2 chest wall pain-possibly secondary to coughing, analgesics will be administered as needed #3 recent pulmonary embolism-patient is currently taking Xarelto and according to the sister he is compliant with this medication #4 status post renal transplant proximally 16 months ago-patient will continue his current antirejection drugs #5 MRDD #6 hematuria-patient has a history of hematuria in the past, he is currently on Xarelto which may contribute to the hematuria, patient has no signs of active urinary tract infection at this time Code Visit OBSV E&M: 31449 Initial observation care L3
[2017-08-18] MEDS: Albuterol 2.5 MG/3 ML VIAL.NEB. INHALATION ×2 (06:39→13:17)
[2017-08-18] MEDS: Mycophenolate Mofetil 250 MG Capsule 500 MG PO (08:43)
[2017-08-18] MEDS: Tacrolimus Anhydrous 1 MG Capsule 2 MG PO (08:43)
[2017-08-18] MEDS: Rivaroxaban 20 MG Tablet PO (08:43)
[2017-08-18] MEDS: Smz/Tmp Ds Tablet 0.5 TABLET PO (08:43)
--- NOTE | 2017-08-18 12:06 | PCM.DC ---
- Discharge Diagnoses Current Active Problems: Current Active and Chronic Problems Right-sided chest pain (Acute) Nonproductive cough (Acute) You will use the following diet at home:: No restrictions Your food should be the consistency of: Regular Your liquids should be the consistency of: Regular/Thin Discharge Activity: Return to Normal Activity Call your doctor if you observe: Fever of 101 or Higher, Shortness of breath Instructions: ED Chest Pain NonCardiac Allergies/Adverse Reactions: Allergies No Known Allergies Allergy (Verified 08/17/17 23:44) Medications to take at Discharge Mycophenolate Mofetil [Cellcept] 500 mg PO BID 07/14/16 Amlodipine [Norvasc] 5 mg PO 2100 12/01/16 Tacrolimus Anhydrous [Prograf] 2 mg PO BID 12/02/16 Sulfamethoxazole/Trimethoprim [Sulfamethoxazole-Tmp Ss Tablet] 1 tab PO DAILY 07/13/17 Lactobacillus Acidophilus [Acidophilus] 1 tab PO BID #60 tab 07/18/17 Rivaroxaban [Xarelto] 20 mg PO DAILY 08/17/17 Guaifenesin/Codeine [Robitussin AC] 10 ml PO Q6H PRN PRN 3 Days #100 ml 08/18/17 Oxycodone [Oxyir] 5 mg PO Q6H PRN 3 Days #12 tablet 08/18/17 The following prescriptions were given: Guaifenesin/Codeine [Robitussin AC] 10 ml PO Q6H PRN PRN 3 Days #100 ml PRN Reason: cough Oxycodone [Oxyir] 5 mg PO Q6H PRN 3 Days #12 tablet PRN Reason: Mod-Severe Pain (4-10/10) Primary Care Physician: Mike Bella MD [Primary Care Provider] - Within 2 Weeks Proposed Discharge Date: 08/18/17
--- NOTE | 2017-08-18 12:08 | PCM.DC.SUM ---
Discharge Date and Diagnosis - Problem List Patient Problems: Active and Suspected Problems Right-sided chest pain (Acute) Nonproductive cough (Acute) Date of Admission: 08/18/17 Date of Discharge: 08/18/17 - Primary Discharge Diagnosis Active and Suspected Problems Right-sided chest pain (Acute) Nonproductive cough (Acute) - Secondary Discharge Diagnosis Chronic Problems Pulmonary infiltrate present on computed tomography (Chronic) CKD (chronic kidney disease), stage III (Chronic) Acute UTI (Chronic) Kidney transplant recipient (Chronic) Congenital nystagmus (Chronic) Mild MRDD (Chronic) DVT (deep venous thrombosis) (Chronic) Renal transplant, status post (Chronic) Neurogenic bladder disorder (Chronic) managed with cic Hospital Course and Treatment Imaging Results: Clinical Impression(s) from Imaging Studies Chest X-Ray 08/18/17 00:02 IMPRESSION: No radiographic evidence of acute intrathoracic disease. at 0043 Reported and signed by: Iram Barr MD Electronically Signed: Iram Barr MD at 0:42 EDT Tel , Service support , Operations: None Procedures: None Summary of Care Provided: The patient is a 52 year old M with cough and midsternal chest pain. Patient was admitted a month ago with chest pain due to pulmonary embolism. Patient has been coughing is been nonproductive. Patient on exam has reproducible anterior chest wall pain. Patient did have EKG was normal and serial troponins that were also negative. Given the fact that his chest pain was atypical I did not feel that patient warranted additional workup. I told patient he was being discharged patient requested to stay another night when asked him what his expectations were about staying another night he did not further elaborate. I told him that we have evaluated him for pneumonia as well as cardiac equivalent in those have been negative and that I do not feel that he necessitates further hospitalization. I told him that we would treat his pain and also with this cough. I feel that his chest pain is like to later with costochondritis due to coughing. On physical exam patient is in no distress. No conversational dyspnea no respiratory distress. Patient is on room air. Patient has reproducible anterior chest wall tenderness similar to what he is planning. Lungs are clear to auscultation bilaterally with equal air entry. Heart is regular rate and rhythm plus S1-S2 without any murmurs capture rubs. [] Discharge Diet: No Restrictions Discharge Activity: Return to Normal Activity Call your doctor if you observe: Fever of 101 or Higher, Shortness of breath Home Medications: Medications to take at Discharge Mycophenolate Mofetil [Cellcept] 500 mg PO BID 07/14/16 Amlodipine [Norvasc] 5 mg PO 2100 12/01/16 Tacrolimus Anhydrous [Prograf] 2 mg PO BID 12/02/16 Sulfamethoxazole/Trimethoprim [Sulfamethoxazole-Tmp Ss Tablet] 1 tab PO DAILY 07/13/17 Lactobacillus Acidophilus [Acidophilus] 1 tab PO BID #60 tab 07/18/17 Rivaroxaban [Xarelto] 20 mg PO DAILY 08/17/17 Guaifenesin/Codeine [Robitussin AC] 10 ml PO Q6H PRN PRN 3 Days #100 ml 08/18/17 Oxycodone [Oxyir] 5 mg PO Q6H PRN 3 Days #12 tablet 08/18/17 Following Prescrptions Were Given to Patient: Guaifenesin/Codeine [Robitussin AC] 10 ml PO Q6H PRN PRN 3 Days #100 ml PRN Reason: cough Oxycodone [Oxyir] 5 mg PO Q6H PRN 3 Days #12 tablet PRN Reason: Mod-Severe Pain (4-10/10) Primary Care Physician: Mike Bella MD [Primary Care Provider] - Within 2 Weeks Patient Instructions: ED Chest Pain NonCardiac Disposition: Home Minutes spent on discharge:: 25 Patient Condition:: Good Medical Necessity - Tobacco Use Smoking Status: Never smoker Tobacco Use: Non-smoker Meaningful Use Info Meaningful Use Diagnoses (Choose all that apply): None applicable Code Visit OBSV E&M: 26540 Observation care discharge
--- NOTE | 2017-08-18 12:11 | DS.PCM_ITS ---
Discharge Date and Diagnosis - Problem List Patient Problems: Active and Suspected Problems Right-sided chest pain (Acute) Nonproductive cough (Acute) Date of Admission: 08/18/17 Date of Discharge: 08/18/17 - Primary Discharge Diagnosis Active and Suspected Problems Right-sided chest pain (Acute) Nonproductive cough (Acute) - Secondary Discharge Diagnosis Chronic Problems Pulmonary infiltrate present on computed tomography (Chronic) CKD (chronic kidney disease), stage III (Chronic) Acute UTI (Chronic) Kidney transplant recipient (Chronic) Congenital nystagmus (Chronic) Mild MRDD (Chronic) DVT (deep venous thrombosis) (Chronic) Renal transplant, status post (Chronic) Neurogenic bladder disorder (Chronic) managed with cic Hospital Course and Treatment Imaging Results: Clinical Impression(s) from Imaging Studies Chest X-Ray 08/18/17 00:02 IMPRESSION: No radiographic evidence of acute intrathoracic disease. at 0043 Reported and signed by: Iram Barr MD Electronically Signed: Iram Barr MD at 0:42 EDT Tel , Service support , Operations: None Procedures: None Summary of Care Provided: The patient is a 52 year old M with cough and midsternal chest pain. Patient was admitted a month ago with chest pain due to pulmonary embolism. Patient has been coughing is been nonproductive. Patient on exam has reproducible anterior chest wall pain. Patient did have EKG was normal and serial troponins that were also negative. Given the fact that his chest pain was atypical I did not feel that patient warranted additional workup. I told patient he was being discharged patient requested to stay another night when asked him what his expectations were about staying another night he did not further elaborate. I told him that we have evaluated him for pneumonia as well as cardiac equivalent in those have been negative and that I do not feel that he necessitates further hospitalization. I told him that we would treat his pain and also with this cough. I feel that his chest pain is like to later with costochondritis due to coughing. On physical exam patient is in no distress. No conversational dyspnea no respiratory distress. Patient is on room air. Patient has reproducible anterior chest wall tenderness similar to what he is planning. Lungs are clear to auscultation bilaterally with equal air entry. Heart is regular rate and rhythm plus S1-S2 without any murmurs capture rubs. [] Discharge Diet: No Restrictions Discharge Activity: Return to Normal Activity Call your doctor if you observe: Fever of 101 or Higher, Shortness of breath Home Medications: Medications to take at Discharge Mycophenolate Mofetil [Cellcept] 500 mg PO BID 07/14/16 Amlodipine [Norvasc] 5 mg PO 2100 12/01/16 Tacrolimus Anhydrous [Prograf] 2 mg PO BID 12/02/16 Sulfamethoxazole/Trimethoprim [Sulfamethoxazole-Tmp Ss Tablet] 1 tab PO DAILY Lactobacillus Acidophilus [Acidophilus] 1 tab PO BID #60 tab 07/18/17 Rivaroxaban [Xarelto] 20 mg PO DAILY 08/17/17 Guaifenesin/Codeine [Robitussin AC] 10 ml PO Q6H PRN PRN 3 Days #100 ml Oxycodone [Oxyir] 5 mg PO Q6H PRN 3 Days #12 tablet 08/18/17 Following Prescrptions Were Given to Patient: Guaifenesin/Codeine [Robitussin AC] 10 ml PO Q6H PRN PRN 3 Days #100 ml PRN Reason: cough Oxycodone [Oxyir] 5 mg PO Q6H PRN 3 Days #12 tablet PRN Reason: Mod-Severe Pain (4-10/10) Primary Care Physician: Mike Bella MD [Primary Care Provider] - Within 2 Weeks Patient Instructions: ED Chest Pain NonCardiac Disposition: Home Minutes spent on discharge:: 25 Patient Condition:: Good Medical Necessity - Tobacco Use Smoking Status: Never smoker Tobacco Use: Non-smoker Meaningful Use Info Meaningful Use Diagnoses (Choose all that apply): None applicable Code Visit OBSV E&M: 01693 Observation care discharge
--- NOTE | 2017-08-18 14:48 | CHAPLAIN ---
Type of Pastoral Visit _x__ Initial Visit ___ Follow-up Visit ___ On-call Visit ___ General Patient Visit ___ Spiritual Assessment ___ Family Conference ___ Bereavement ___ Rapid Response ___ Code Blue ___ Other (describe below) Pastoral Care Referral From _x__ Patient ___ Family ___ Nurse ___ Physician ___ Assembly Instructions Writer ___ Geotechnical Intern ___ Other (describe below) Sacrament/Intervention _x__ Active listening ___ Anointing ___ Cheondoism ___ Bereavement ___ Communion ___ [place] exploration ___ ___ Life review _x__ Prayer ___ Reconciliation ___ Sacrament of Sick _x__ Supportive presence ___ Wedding ___ Other (describe below) Pastoral Comments
== END 2017-08-18 14:42 | disposition home or self-care (01) ==
LOC: ED 08-18 00:29 → MS3 08-18 03:10
PROVIDERS: Admitting Provider Internal Medicine; Emergency Provider Emergency Medicine; Family Provider Family Medicine; PCP Family Medicine
DX: R07.89 Other chest pain (principal); Z86.711 Personal history of pulmonary embolism; Z94.0 Kidney transplant status; R06.02 Shortness of breath; Z79.01 Long term (current) use of anticoagulants; N18.3 Chronic kidney disease, stage 3 (moderate); H55.01 Congenital nystagmus; F70 Mild intellectual disabilities; N31.9 Neuromuscular dysfunction of bladder, unspecified; Z79.899 Other long term (current) drug therapy; R31.9 Hematuria, unspecified; R05 Cough; Z86.718 Personal history of other venous thrombosis and embolism
CPT/HCPCS: 36415; 71046; 80053; 81001; 83690; 84484; 85025; 85610; 85730; 87086; 87088; 87633; 93005; 94640; 96374; 96375; 96376; 99218; 99283; J7030; A4216; G0378; J2405

== ENCOUNTER 2017-08-20 07:56 | Outpatient (RCR) | payer MEDICARE, OTHER, SELFPAY ==
[2017-08-20 09:16] LABS: Absolute Lymphocyte Count 0.83 X10^3/ul (0.83-4.51); Absolute Neutrophil Count 3.2 X10^3/uL (2.0-7.7); Basophil# 0.03 X10^3/uL; Basophil% 0.6 % (0-1); Eosinophil# 0.24 X10^3/uL; Eosinophils% 4.8 % (0-5); Hematocrit 41.8 % (40-54); Hemoglobin 13.3 g/dl (13.0-16.5); Lymphocyte # 0.83 X10^3/ul (4.0); Lymphocyte % 16.5 % (19-41); Mean Corp Hgb Conc 31.8 g/gl (32-36); Mean Corpuscular Hgb 28.4 pg (27.0-32.0); Mean Corpuscular Volume 89.3 fL (80-94); Mean Platelet Vol. 11.3 fl (6.2-12.0); Monocyte# 0.69 X10^3/uL; Monocyte% 13.7 % (0-10); Neutrophil # 3.23 X10^3/uL (2.7-7.7); Neutrophil % 64.2 % (47-70); Platelet Count 172 K/mm3 (150-450); RBC Distribution Width CV 14.7 % (11.6-14.6); RBC Distribution Width SD 48.2 fl (35.1-43.9); Red Blood Count 4.68 M/mm3 (4.6-6.2)
[2017-08-20 09:18] LABS: POSITIVE COUNT NO; POSITIVE DIFFERENTIAL NO; POSITIVE MORPHOLOGY NO
[2017-08-20 09:27] LABS: Albumin, Serum 3.8 g/dL (3.2-5.0); BUN 15 mg/dL (7-18); BUN/Creat Ratio 10.5 RATIO (10-20); Calcium,Total 8.2 mg/dL (8.5-10.1); Chloride 111 mmol/L (98-107); Creatinine, Serum 1.43 mg/dL (0.70-1.30); EST Glomerular Filtration Rate 56 mL/min (>60); Est Glom Filt Rate - Afr Amer 67 mL/min (>60); Glucose 89 mg/dL (74-106); Phosphorus 1.6 mg/dL (2.5-4.9); Potassium 3.9 mmol/L (3.5-5.1); Sodium Level 143 mmol/L (136-145)
[2017-08-22 11:29] LABS: Tacrolimus (FK506) 5.4 ng/mL (2.0-20.0)
== END 2017-08-20 08:00 | disposition home or self-care (01) ==
LOC: LAB 07:56
PROVIDERS: Family Provider Family Medicine; PCP Family Medicine
DX: D89.9 Disorder involving the immune mechanism, unspecified (principal); Z94.0 Kidney transplant status; R31.9 Hematuria, unspecified; N39.0 Urinary tract infection, site not specified
CPT/HCPCS: 36415; 80069; 80197; 85025; 87077; 87086; 87088; 87186

== ENCOUNTER → 2017-09-09 11:57 | Outpatient (CLI) | payer MEDICARE, OTHER, SELFPAY ==
--- NOTE | 2017-09-09 12:03 | RAD_ITS ---
STUDY: X-RAY CHEST REASON FOR EXAM: Male, 52 years old. Kidney transplant. Abdominal pain. Cough. TECHNIQUE: Frontal and lateral views of the chest. COMPARISON: 08/18/2017. FINDINGS: Hyperexpansion of the lungs. Infiltrate in the medial lower right lung, possibly the right middle lobe. No effusions. Lungs otherwise clear. Normal size heart. Normal mediastinum and alton. Normal visualized pulmonary arteries. Normal visualized aortic arch and descending thoracic aorta. There are diffuse degenerative changes of the visualized thoracic spine. Normal visualized ribs, clavicles, and shoulders. There is no demonstrated abnormality of the visualized soft tissue structures of the upper abdomen. RAD/Chest PA and Lateral IMPRESSION: Hyperexpansion of the lungs. Infiltrate in the medial lower right lung, possibly the right middle lobe. Electronically Signed: López Wong MD at 23:59 EDT , Service support ,
== END ==
PROVIDERS: Family Provider Family Medicine; PCP Family Medicine; Visit Provider Family Medicine
DX: J20.9 Acute bronchitis, unspecified (principal)
CPT/HCPCS: 71046

== ENCOUNTER 2017-09-10 21:44 | Inpatient (IN) | payer MEDICARE, OTHER, SELFPAY ==
[2017-09-10 21:46] VITALS: BP 127/103; PULSE 111; RESP 20; TEMP 36.8; O2SAT 97; BMI 24.3
--- NOTE | 2017-09-10 22:46 | EKG12_ITS ---
Test Reason : Blood Pressure : / mmHG Vent. Rate : 098 BPM Atrial Rate : 098 BPM P-R Int : 128 ms QRS Dur : 084 ms QT Int : 362 ms P-R-T Axes : 042 002 050 degrees QTc Int : 462 ms Normal sinus rhythm Normal ECG Confirmed by SUSAN MORENO, RAEANN ([id number]), content editor EUGENIO CONKLIN ([id number] on 09/14/2017 1:32:09 PM Referred By: Ha Lyle Confirmed By:RAEANN DAVIS MD
--- NOTE | 2017-09-10 22:49 | RAD_ITS ---
STUDY: X-RAY CHEST REASON FOR EXAM: Male, 52 years old. Coughing. Short of breath. TECHNIQUE: Single AP portable view of the chest. COMPARISON: 09/09/2017. FINDINGS: Continued increased density of the medial right lung base. Findings continue to suggest atelectasis or infiltrate. Lungs otherwise clear. No effusions. Normal size heart. Normal mediastinum and alton. Normal visualized pulmonary arteries. Normal visualized aortic arch and descending thoracic aorta. Normal visualized thoracic spine. Normal visualized ribs, clavicles, and shoulders. There is no demonstrated abnormality of the visualized soft tissue structures of the upper abdomen. RAD/Chest 1 View (Portable) IMPRESSION: No significant change. Suspicion of medial right basilar infiltrate. Electronically Signed: López Wong MD at 23:22 EDT , Service support ,
[2017-09-10 23:17] LABS: Bacteria 0 SEEN /hpf (None Seen); Mucous, Urine 0 SEEN /hpf (<or=2+); White Blood Cells 0 SEEN /hpf (0-5)
[2017-09-10] MEDS: 0.9% Normal Saline 1,000 ML 150 ML IV (23:17)
[2017-09-10 23:27] LABS: Absolute Lymphocyte Count 0.75 X10^3/ul (0.83-4.51); Absolute Neutrophil Count 3.6 X10^3/uL (2.0-7.7); Basophil# 0.04 X10^3/uL; Basophil% 0.8 % (0-1); Eosinophil# 0.05 X10^3/uL; Lymphocyte # 0.75 X10^3/ul (4.0); Lymphocyte % 14.9 % (19-41); Mean Corp Hgb Conc 32.5 g/gl (32-36); Mean Corpuscular Hgb 28.8 pg (27.0-32.0); Mean Corpuscular Volume 88.7 fL (80-94); Mean Platelet Vol. 10.6 fl (6.2-12.0); Monocyte# 0.62 X10^3/uL; Monocyte% 12.4 % (0-10); Neutrophil # 3.55 X10^3/uL (2.7-7.7); Neutrophil % 70.7 % (47-70); Platelet Count 201 K/mm3 (150-450); RBC Distribution Width CV 14.5 % (11.6-14.6); RBC Distribution Width SD 46.8 fl (35.1-43.9); Red Blood Count 4.51 M/mm3 (4.6-6.2)
[2017-09-10 23:28] LABS: POSITIVE COUNT NO; POSITIVE DIFFERENTIAL NO; POSITIVE MORPHOLOGY NO
[2017-09-10 23:33] VITALS: O2SAT 97
[2017-09-10 23:43] LABS: Anion Gap 7 (5-15); BUN 22 mg/dL (7-18); BUN/Creat Ratio 13.2 RATIO (10-20); Calcium,Total 8.1 mg/dL (8.5-10.1); Chloride 112 mmol/L (98-107); Creatinine, Serum 1.67 mg/dL (0.70-1.30); EST Glomerular Filtration Rate 47 mL/min (>60); Est Glom Filt Rate - Afr Amer 56 mL/min (>60); Estimated Creatinine Clearance 58.08 ml/min; Glucose 103 mg/dL (74-106); Potassium 4.1 mmol/L (3.5-5.1); Sodium Level 141 mmol/L (136-145)
[2017-09-10 23:50] LABS: Color, Urine Brown (Yellow); Glucose, Dipstick Normal (Normal); Ketone-Dipstick Negative (Negative); Leukocyte Esterase-Dipstick Negative /ul (Negative); Nitrite-Dipstick Negative (Negative); Occult Blood-Urine 250 /ul (Negative); Protein-Dipstick 500 mg/dl (Negative); Specific Gravity, Urine 1.015 (1.002-1.030); Urine Bilirubin Dipstick Negative (Negative); Urine Clarity Turbid (Clear); Urine Urobilinogen Normal (Normal)
[2017-09-10 23:55] LABS: Red Blood Cells-Urine > 100 SEEN /hpf (0-5); Squamous Epithelial Cells - UA 0-5 SEEN /hpf (0-5)
[2017-09-10 23:59] LABS: Lactic Acid 0.9 mmol/L (0.4-2.0)
[2017-09-11] VITALS (7 sets, daily range): BP systolic 132–148; BP diastolic 70–88; PULSE 88–103; RESP 16–22; TEMP 36.9–37.2; O2SAT 95–98; BMI 24.3; BMI 24.4
--- NOTE | 2017-09-11 00:05 | ED.VISSUMM ---
- ER Visit Summary Date of Service: 09/11/17 Chief Complaint: Pneumonia History of Present Illness: The patient is a 52 M who is had frequent bronchitis since August this year. He is most recently on a Z-Av 2 weeks ago. Patient was seen at his PCPs office yesterday due to worsening cough for the past 4 days. X-ray was positive for pneumonia. He was started on albuterol and Levaquin. Patient had 2 doses of Levaquin at home. Tonight he felt dizzy and he has pain with cough. He has been taking oxycodone for pain. History is significant for kidney transplant, neurogenic bladder, and prior DVT/PE. Patient is currently on Xarelto. Physical Examination: Blood pressure is 127/103, temperature 98.3, heart rate 111, respiratory rate 20, pulse ox 97% on room air. Head neck examination is grossly unremarkable. Heart is regular rate and rhythm. Lung sounds are slightly diminished at the bases. I do not appreciate any wheezing or rhonchi. Abdomen is soft nontender. Lower extremity examination reveals no significant calf tenderness or edema. He has strong and equal distal pulses. Test Results: EKG is sinus at 98 with no sign of acute ischemia. Portable chest x-ray reveals no significant change. There is suspicion of a medial right basilar infiltrate. CBC is grossly unremarkable. Chemistry studies reveal BUN 22 and creatinine 1.67. This appears to be his baseline creatinine. Urinalysis shows evidence of RBCs but no infection. Lactate is normal. Blood cultures were sent. Emergency Department Course and Treatment: Patient is given IV fluids. He is ordered oral Robitussin for cough. Last dose of Levaquin was at 9 AM this morning. At this time I will speak with the hospitalist regarding observation overnight for hydration and monitoring of his symptoms. Treatment Plan: [] Disposition: Admit Impression: 1. Community acquired pneumonia 2. History of renal transplant This note was generated with [employer] dictation software. It may contain incorrect words, spelling, and punctuation that were not noted in review of the chart prior to signing ED Disposition - Plan for ED Patient: Chief Complaint: Shortness of Breath Referrals: iMke Bella MD [Primary Care Provider] -
--- NOTE | 2017-09-11 00:18 | HP.PCM_ITS ---
Problem List (1) Bronchitis Status: Acute (2) Nonproductive cough Status: Acute (3) Pulmonary embolism Status: Chronic Qualifiers: Pulmonary embolism type: other Chronicity: unspecified Acute cor pulmonale presence: without acute cor pulmonale Qualified Code(s): I26.99 - Other pulmonary embolism without acute cor pulmonale (4) Pulmonary infiltrate present on computed tomography Status: Chronic (5) CKD (chronic kidney disease), stage III Status: Chronic (6) Kidney transplant recipient Status: Chronic (7) Congenital nystagmus Status: Chronic (8) Mild MRDD Status: Chronic (9) DVT (deep venous thrombosis) Status: Chronic Qualifiers: DVT location: lower extremity Affected thrombotic vein of extremity: unspecified vein of extremity Chronicity: unspecified Laterality: unspecified laterality Qualified Code(s): I82.409 - Acute embolism and thrombosis of unspecified deep veins of unspecified lower extremity (10) Neurogenic bladder disorder Status: Chronic Comment: managed with cic History of Present Illness Date of Admission: 09/11/17 Chief Complaint: Cough, Dyspnea The patient is a 52 y/o M w/ PMHx: Mild MRDD with help from his family/sister, Congenital Nystagmus, CKD stage III (baseline Cr 1.6 currently, prior ESRD s/p Renal Txp), Renal Txp status on immunosuppressive therapy, Neurogenic bladder w / self catheterization although not always complaint with q 4 hours during daytime, Hx DVT w/ recent 07/20/17 CTPA w/ ground-glass opacities with minimal dependent consolidation and atelectasis within the lower lobes, pulmonary emboli within the right middle lobe and 07/14/16 CT Chest w/ bilateral lower lung ground-glass opacities with nodular components who presents to the [facility] ED on 09/11/17 with history of recently being dx with PNA 09/09/17 with initiation on abx therapy Levaquin 750 mg with ongoing coughing, dyspnea, lightheadedness, notably chest wall discomfort with coughing. He was initially ill with similar sxs starting in early August following several other family members ill with similar symptoms lasting at least 2 weeks in them, but prolonged in the patient and ongoing severe uncomfortable coughing, non-productive. He checks is temperature and BP daily and may have had an elevated T several days ago but not recently. In the ED work-up included T 98.3, heart rate 111, BP 127/103--> 132/88, respiratory rate 19, 97% on room air, CBC with WBC 5, hemoglobin 13, platelet 201 shift, BMP with chloride 112, BUN/creatinine 22/1.67 (1.6-1.8 baseline), lactic acid 0.9, UA with protein, blood, no WBCs and no urine bacteria noted, chest x-ray with continued increased density of the medial right lung base possibly secondary to atelectasis versus infiltrate. In the ED patient administered IVFs and cough regimen. Past Medical History Past Medical History (Chronic Problems): Chronic Problems Pulmonary embolism (Chronic) Pulmonary infiltrate present on computed tomography (Chronic) CKD (chronic kidney disease), stage III (Chronic) Acute UTI (Chronic) Kidney transplant recipient (Chronic) Congenital nystagmus (Chronic) Mild MRDD (Chronic) DVT (deep venous thrombosis) (Chronic) Renal transplant, status post (Chronic) Neurogenic bladder disorder (Chronic) managed with cic Allergies No Known Allergies Allergy (Verified 09/10/17 21:48) Home Medications: Ambulatory Orders Medication Instructions Recorded Mycophenolate Mofetil [Cellcept] 500 mg PO BID 07/14/16 Amlodipine [Norvasc] 5 mg PO 2100 12/01/16 Tacrolimus Anhydrous [Prograf] 2 mg PO BID 12/02/16 Sulfamethoxazole/Trimethoprim 1 tab PO DAILY 07/13/17 [Sulfamethoxazole-Tmp Ss Tablet] Lactobacillus Acidophilus 1 tab PO BID #60 tab 07/18/17 [Acidophilus] Rivaroxaban [Xarelto] 20 mg PO DAILY 08/17/17 Guaifenesin/Codeine [Robitussin AC] 10 ml PO Q6H PRN PRN 3 Days #100 ml 08/18/17 Oxycodone [Oxyir] 5 mg PO Q6H PRN 3 Days #12 tablet 08/18/17 Albuterol Sulfate [Proair 90 mcg IH Q4H PRN PRN 09/10/17 Respiclick] Levofloxacin [Levaquin] 750 mg PO DAILY 09/10/17 Surgical History: - - Right kidney transplant [facility], dialysis access prior. Right upper extremity fistula Psychiatric History: No pertinent psych hx, - - MRDD Lives: Alone Smoking Status: Never smoker Tobacco Use: Non-smoker Alcohol: None Drugs: None - *Family History Maternal History Items: Hypertension Paternal History Items: Diabetes Review of Systems Constitutional: Reports: Malaise, Weakness, Fatigue. Denies: Chills, Fever, Weight Change HEENT: Denies: Head Aches, Sinus Congestion, Sinus Drainage Cardiovascular: Reports: Chest Pain. Denies: Palpitations Respiratory: Reports: Cough, Shortness of breath upon exertion. Denies: Shortness of breath at rest, Sputum production, Wheezing Gastrointestinal: Denies: Abdominal Pain, Nausea, Vomiting Genitourinary: Reports: - - Straight catheterization chronically.. Denies: Dysuria Musculoskeletal: Denies: Joint Pain, Joint Tenderness Skin: Denies: Rash, Wounds Neurological: Reports: - - MRDD. Denies: Focal weakness, Numbness, Tingling Psychiatric: Denies: Anxiety, Depression, Homicidal Ideations, Suicidal Ideations Hematologic/ Lymphatic: Denies: Easy Bruising, Easy Bleeding VTE Information - Inpt Only VTE Present on Admission: No VTE Mechan Device Prophylaxis: SCD's VTE Pharm Prophylaxis ordered?: Yes Patient Problems: Active and Suspected Problems Bronchitis (Acute) Subjective: Seated upright in the ED bed, fatigued appearance, harsh dry coughing with grimacing secondary to pain during examination. Objective: Physical Examination: General: awake, alert, less talkative than baseline, oriented x 3 and cooperative, seated upright in the ED bed, fatigued appearance. Skin: normal color, turgor, no icterus, cyanosis. HEENT: AT/NC, EOMI, PERRLA, dry MM, posterior OP erythema, no carotid bruits or JVD noted. Lungs: Diminished BS BL, > bases, mild effort, currently no rales, ronchi or wheezing. Heart: Mildly tachycardic with regular rhythm (after coughing fit); no gallop, rub audible. Abdomen: soft, NTTP, ND, normal BS, no HSM. Extremities: no cyanosis, clubbing, or edema. Neurological: patient awake, alert, oriented x 3; cognitive function intact but less interactive secondary to fatigue; pupils equally reactive to light and accomodation; cranial nerves II-XII grossly normal, moving all 4 extremities, no focal deficits, strength severely globally decreased secondary to acute presentation. Psychiatric: affect appears flat, fatigued, no acute evidence of depressive or anxiety feelings. - Physical Exam Vital Signs Temp Pulse Resp BP Pulse Ox 98.3 F 103 H 19 H 132/88 H 97 09/10/17 21:46 09/11/17 00:01 09/11/17 00:01 09/11/17 00:01 09/11/17 00:01 Oxygen Delivery Method Room Air Weight: 179 lb 7.3 oz Body Mass Index (BMI) 24.3 Laboratory Tests Past 24 Hrs 09/10/17 09/10/17 09/10/17 23:10 23:10 23:10 WBC 5.0 RBC 4.51 L Hgb 13.0 Hct 40.0 MCV 88.7 MCH 28.8 MCHC 32.5 RDW 14.5 RDW Differential 46.8 H Plt Count 201 MPV 10.6 Immature Gran % (Auto) 0.200 Neut % (Auto) 70.7 H Lymph % (Auto) 14.9 L [place] % (Auto) 12.4 H Eos % (Auto) 1.0 Baso % (Auto) 0.8 Absolute Neuts (auto) 3.6 Absolute Lymphs (auto) 0.75 L Total Counted Not Reportable Sodium 141 Potassium 4.1 Chloride 112 H Carbon Dioxide 22.0 Anion Gap 7 BUN 22 H Creatinine 1.67 H Estim Creat Clear Calc 58.08 Est GFR (MDRD) Af Amer 56 L Est GFR (MDRD) Non-Af 47 L BUN/Creatinine Ratio 13.2 Glucose 103 Lactic Acid 0.9 Calcium 8.1 L Urine Color Urine Clarity Urine pH Ur Specific [place] Urine Protein Urine Glucose (UA) Urine Ketones Urine Occult Blood Urine Nitrite Urine Bilirubin Urine Urobilinogen Ur Leukocyte Esterase Urine RBC Urine WBC Ur Squamous Epith Cells Urine Bacteria Urine Mucus 09/10/17 23:10 WBC RBC Hgb Hct MCV MCH MCHC RDW RDW Differential Plt Count MPV Immature Gran % (Auto) Neut % (Auto) Lymph % (Auto) [place] % (Auto) Eos % (Auto) Baso % (Auto) Absolute Neuts (auto) Absolute Lymphs (auto) Total Counted Sodium Potassium Chloride Carbon Dioxide Anion Gap BUN Creatinine Estim Creat Clear Calc Est GFR (MDRD) Af Amer Est GFR (MDRD) Non-Af BUN/Creatinine Ratio Glucose Lactic Acid Calcium Urine Color Brown Urine Clarity Turbid Urine pH 5.0 Ur Specific [place] 1.015 Urine Protein 500 H Urine Glucose (UA) Normal Urine Ketones Negative Urine Occult Blood 250 H Urine Nitrite Negative Urine Bilirubin Negative Urine Urobilinogen Normal Ur Leukocyte Esterase Negative Urine RBC > 100 SEEN Urine WBC 0 SEEN Ur Squamous Epith Cells 0-5 SEEN Urine Bacteria 0 SEEN Urine Mucus 0 SEEN Assessment/Plan Active and Suspected Problems Bronchitis (Acute) The patient is a 52 y/o M w/ PMHx: Mild MRDD with help from his family/sister, Congenital Nystagmus, CKD stage III, Renal Txp status on immunosuppressive therapy, Neurogenic bladder w/ self catheterization although not always complaint with q 4 hours during daytime, Hx DVT and recent PE who presents to the [facility] ED on 09/11/17 with history of recently being dx with PNA 09/09/17 with initiation on abx therapy Levaquin 750 mg with ongoing coughing, dyspnea, lightheadedness, notably chest wall discomfort with coughing. (1) Dyspnea, Cough w/ Chronic CT/CXR chronic changes suspected secondary to Bronchitis versus PNA: Patient has had ongoing symptoms through August, CT changes have been noted through several prior CTs including on the A/P at the bases, suspect this more to be severe bronchitis versus PNA, treated w/ z-pack x 2 and also now on Levaquin 750 mg daily with dose already administered on 09/10, but not relenting and given txp status to be cautious will admit to [facility], maintain on IVFs, cough regimen, aerosols, PRN albuterol, obtain respiratory viral panel, obtain sputum Cx, already administered levaquin 750 mg on day of presentation thus defer further abx therapy pending Pulmonary evaluation given now 2nd time for presentation secondary to pulmonary complaint within 2 months to assess for PNA versus bronchitis. Prior admission with evaluation per Speech to assure no aspiration and was unremarkable. Restart abx therapy and/or broaden if pulmonary feels appropriate. (2) Neurogenic Bladder and Self-Catheterization: UA with protein, RBC but no obvious infection, continue q 4 hour straight catheterization during daytime per home regimen recommended. (3) Prior ESRD/CKD IV, currently CKD stage III, status post kidney transplant: Admission BUN/Cr 22/1.67, stable, baseline Cr 1.6-1.8, continue cellcept, prograf, bactrim prophylactic regimen. (4) Hypertension: Continue home regimen including norvasc, PRN hydralazine. (5) Mild mental retardation: Stable, family supportive. (6) Hx DVT, Recent PE: Maintain on home xarelto regimen. (7) DVT Prophylaxis: SCDs, heparin. (8) CODE status: Discussed CODE status at length including difference between FULL code, DNR-CCA and DNR-CC status. Following discussions about the differences in these status, requested FULL CODE. Advanced Care Planning Face to Face Time: 16 minutes. Code Visit Inpatient E&M: 57608 Init Hosp L3 Procedures: 13785 Advncd Care Plan 30 Min
[2017-09-11] MEDS: guaiFENesin 10 ML UDC (200MG/10ML) PO (00:20)
[2017-09-11 01:23] LABS: Magnesium 1.7 mg/dL (1.6-2.6)
[2017-09-11] MEDS: oxyCODONE 5 MG Tablet PO (01:42)
[2017-09-11] MEDS: Ipratropium/Albuterol Sulfate 3 ML AMPUL.NEB INHALATION ×2 (03:05→10:30)
[2017-09-11] MEDS: 0.9% Normal Saline 1,000 ML 150 ML IV (04:16)
--- NOTE | 2017-09-11 06:04 | CON.PCM_ITS ---
Reason for Consult Date of Consultation: 09/11/17 Reason for Consultation: CT/CXR chronic changes, ongoing pulm sxs x 1-1.5 month , ? bronchitis/PNA History of Present Illness: The patient is a 52-year-old male, with a history as outlined below, who presented to the emergency department on September 11 with cough and pleuritic type chest pain. This is now the patient's forth admission since mid July 2017. He was initially admitted in mid July and treated for an acute Enterobacter cystitis. The patient was then admitted short time later with acute pulmonary embolism. In mid August, the patient was admitted with cough and midsternal chest pain. No respiratory infectious workup was ever completed throughout these hospital admissions. The patient reports the continued presence of a dry , nonproductive cough. He reports a great deal of pain originating in the area between his rib cage and stomach. He states that he feels as if he has torn a lot of muscles. A CT abdomen/pelvis that was obtained in July 2017 did reveal incidental note of a left lower lobe airspace consolidation and right lower lobe atelectasis. CTA chest completed on July 20, 2017 revealed filling defects within the segmental and subsegmental pulmonary arteries within the right middle lobe consistent with pulmonary emboli. There was evidence of groundglass opacities associated with dependent consolidation within the lower lobes. On presentation to the emergency department, the patient was noted to be afebrile and hemodynamically stable. He was maintaining appropriate oxygen saturations on room air. Laboratory evaluation revealed no evidence of a leukocytosis. Creatinine was elevated 1.67. Plain film chest x-ray was reported to reveal a continued density in the right medial lung base. However, the patient's lung trevizo appear grossly clear to me on review of the film. Past Medical History Past Medical History (Chronic Problems): Chronic Problems Pulmonary embolism (Chronic) Pulmonary infiltrate present on computed tomography (Chronic) CKD (chronic kidney disease), stage III (Chronic) Acute UTI (Chronic) Kidney transplant recipient (Chronic) Congenital nystagmus (Chronic) Mild MRDD (Chronic) DVT (deep venous thrombosis) (Chronic) Renal transplant, status post (Chronic) Neurogenic bladder disorder (Chronic) managed with cic Allergies No Known Allergies Allergy (Verified 09/10/17 21:48) Home Medications: Ambulatory Orders Medication Instructions Recorded Mycophenolate Mofetil [Cellcept] 500 mg PO BID 07/14/16 Amlodipine [Norvasc] 5 mg PO 2100 12/01/16 Tacrolimus Anhydrous [Prograf] 2 mg PO BID 12/02/16 Sulfamethoxazole/Trimethoprim 1 tab PO DAILY 07/13/17 [Sulfamethoxazole-Tmp Ss Tablet] Lactobacillus Acidophilus 1 tab PO BID #60 tab 07/18/17 [Acidophilus] Rivaroxaban [Xarelto] 20 mg PO DAILY 08/17/17 Guaifenesin/Codeine [Robitussin AC] 10 ml PO Q6H PRN PRN 3 Days #100 ml 08/18/17 Oxycodone [Oxyir] 5 mg PO Q6H PRN 3 Days #12 tablet 08/18/17 Albuterol Sulfate [Proair 90 mcg IH Q4H PRN PRN 09/10/17 Respiclick] Levofloxacin [Levaquin] 750 mg PO DAILY 09/10/17 Surgical History: - - Right kidney transplant [facility], dialysis access prior. Right upper extremity fistula Psychiatric History: No pertinent psych hx, - - MRDD Lives: Alone Smoking Status: Never smoker Tobacco Use: Non-smoker Alcohol: None Drugs: None - *Family History Maternal History Items: Hypertension Paternal History Items: Diabetes Review of Systems Constitutional: Denies: Chills, Fever Eyes: Denies: Blurred vision, Double vision HEENT: Denies: Head Aches, Sinus Congestion, Sinus Drainage Cardiovascular: Reports: Chest Pain Respiratory: Reports: Cough, Pleuritic Pain, Shortness of Breath. Denies: Sputum production Gastrointestinal: Denies: Abdominal Pain, Nausea, Vomiting Genitourinary: Denies: Dysuria Musculoskeletal: Denies: Joint Pain, Joint Tenderness Skin: Denies: Rash, Wounds Neurological: Denies: Numbness, Tingling, Focal weakness Psychiatric: Denies: Anxiety, Depression, Homicidal Ideations, Suicidal Ideations Hematologic/ Lymphatic: Denies: Easy Bruising, Easy Bleeding Objective: The patient's most recent lab work, culture data and imaging studies have all been personally reviewed. - Physical Exam General: Alert, Cooperative, No apparent distress HEENT: Atraumatic, PERRLA, Normocephalic Oral: No Gingival or Mucosal Lesions/ Ulcerations, Dry Mucosa Neck: Supple, No Nodes, Trachea Midline Lungs: No rhonchi, No wheeze, No rales, Diminished, - - Poor patient dependent inspiratory effort Cardiovascular: Normal S1, Normal S2, No murmurs, Tachycardic Abdomen: Bowel Sounds Present, Soft, Non Tender Extremities: No clubbing, No cyanosis, No edema Skin: No breakdown Musculoskeletal: No Muscle Wasting Lymphatic: No Cervical, Supraclavicular, or Inguinal Adenopathy Neurological: Neuro grossly intact Psych/Mental Status: Flat Affect Vital Signs Temp Pulse Resp BP Pulse Ox 99.0 F 96 22 H 145/78 H 95 09/11/17 01:18 09/11/17 03:05 09/11/17 03:05 09/11/17 01:18 09/11/17 03:05 Oxygen Delivery Method Room Air Weight: 179 lb 10.828 oz Body Mass Index (BMI) 24.3 Labs (Last 48 Hours) 09/10/17 09/10/17 09/10/17 23:10 23:10 23:10 WBC 5.0 RBC 4.51 L Hgb 13.0 Hct 40.0 MCV 88.7 MCH 28.8 MCHC 32.5 RDW 14.5 RDW Differential 46.8 H Plt Count 201 MPV 10.6 Immature Gran % (Auto) 0.200 Neut % (Auto) 70.7 H Lymph % (Auto) 14.9 L [place] % (Auto) 12.4 H Eos % (Auto) 1.0 Baso % (Auto) 0.8 Absolute Neuts (auto) 3.6 Absolute Lymphs (auto) 0.75 L Total Counted Not Reportable Sodium 141 Potassium 4.1 Chloride 112 H Carbon Dioxide 22.0 Anion Gap 7 BUN 22 H Creatinine 1.67 H Estim Creat Clear Calc 58.08 Est GFR (MDRD) Af Amer 56 L Est GFR (MDRD) Non-Af 47 L BUN/Creatinine Ratio 13.2 Glucose 103 Lactic Acid 0.9 Calcium 8.1 L Magnesium Urine Color Urine Clarity Urine pH Ur Specific [place] Urine Protein Urine Glucose (UA) Urine Ketones Urine Occult Blood Urine Nitrite Urine Bilirubin Urine Urobilinogen Ur Leukocyte Esterase Urine RBC Urine WBC Ur Squamous Epith Cells Urine Bacteria Urine Mucus 09/10/17 09/11/17 23:10 00:00 WBC RBC Hgb Hct MCV MCH MCHC RDW RDW Differential Plt Count MPV Immature Gran % (Auto) Neut % (Auto) Lymph % (Auto) [place] % (Auto) Eos % (Auto) Baso % (Auto) Absolute Neuts (auto) Absolute Lymphs (auto) Total Counted Sodium Potassium Chloride Carbon Dioxide Anion Gap BUN Creatinine Estim Creat Clear Calc Est GFR (MDRD) Af Amer Est GFR (MDRD) Non-Af BUN/Creatinine Ratio Glucose Lactic Acid Calcium Magnesium 1.7 Urine Color Brown Urine Clarity Turbid Urine pH 5.0 Ur Specific [place] 1.015 Urine Protein 500 H Urine Glucose (UA) Normal Urine Ketones Negative Urine Occult Blood 250 H Urine Nitrite Negative Urine Bilirubin Negative Urine Urobilinogen Normal Ur Leukocyte Esterase Negative Urine RBC > 100 SEEN Urine WBC 0 SEEN Ur Squamous Epith Cells 0-5 SEEN Urine Bacteria 0 SEEN Urine Mucus 0 SEEN Clinical Impression(s) from Imaging Studies Chest X-Ray 09/10/17 22:49 IMPRESSION: No significant change. Suspicion of medial right basilar infiltrate. Electronically Signed: López Wong MD at 23:22 EDT , Service support , Assessment/Plan RECOMMENDATIONS: 1. Obtain noncontrasted chest CT 2. Hold off on antibiotics at this time. Check respiratory viral panel, along with strep and urine Legionella antigens. 3. If the patient's cough becomes productive, send sputum for culture. 4. Encourage incentive spirometer use 5. Continue home Xarelto regimen IMPRESSIONS: 1. Shortness of breath/cough/pleuritic chest pain Upon review of the patient's plain film chest imaging, there does not appear to be an acute infiltrative process. Etiology for the patient's current complaints is a bit unclear. Given the findings noted on his prior CT chest, recommend repeating a noncontrasted chest CT for further evaluation. Would hold off on starting antibiotics at this time, as the patient is afebrile, has no white count is not and is not producing any sputum. We will plan to check respiratory viral panel along with strep and urine Legionella antigens. If the patient does begin to produce sputum, send for culture. Encourage incentive spirometer use. 2. Neurogenic bladder/chronic kidney disease status post kidney transplant Continue CellCept, Prograf and Bactrim regimen. 3. Personal history of venous thrombus embolism with recent PE Continue outpatient Xarelto regimen 4. Mild MRDD/hypertension Complicates care, management, recovery and prognosis. Okay to continue home medications from my perspective. This note was generated with [employer] dictation software. It may contain incorrect words, spelling, and punctuation that were not noted in checking the note before signing. Code Visit Inpatient E&M: 86292 Init Hosp L3
[2017-09-11] MEDS: proMETHazine 25 MG/ML Syringe 12.5 MG IV (06:54)
[2017-09-11 07:21] LABS: Absolute Lymphocyte Count 1.15 X10^3/ul (0.83-4.51); Absolute Neutrophil Count 3.3 X10^3/uL (2.0-7.7); Basophil# 0.02 X10^3/uL; Basophil% 0.4 % (0-1); Eosinophil# 0.04 X10^3/uL; Eosinophils% 0.8 % (0-5); Hematocrit 37.6 % (40-54); Hemoglobin 11.9 g/dl (13.0-16.5); Lymphocyte # 1.15 X10^3/ul (4.0); Lymphocyte % 22.9 % (19-41); Mean Corp Hgb Conc 31.6 g/gl (32-36); Mean Corpuscular Hgb 28.2 pg (27.0-32.0); Mean Corpuscular Volume 89.1 fL (80-94); Mean Platelet Vol. 10.5 fl (6.2-12.0); Monocyte# 0.46 X10^3/uL; Monocyte% 9.2 % (0-10); Neutrophil # 3.34 X10^3/uL (2.7-7.7); Neutrophil % 66.5 % (47-70); Platelet Count 190 K/mm3 (150-450); RBC Distribution Width CV 14.7 % (11.6-14.6); RBC Distribution Width SD 47.8 fl (35.1-43.9); Red Blood Count 4.22 M/mm3 (4.6-6.2)
--- NOTE | 2017-09-11 07:25 | CT_ITS ---
STUDY: CT CHEST WITHOUT CONTRAST REASON FOR EXAM: Male, 52 years old. Cough RADIATION DOSAGE (If Supplied By Facility): CTDIvol = ( 18.31 ) mGy, DLP = ( 741.45 ) mGycm TECHNIQUE: Transaxial imaging was performed without the administration of intravenous contrast material. Multiplanar coronal and sagittal images were reformatted. Individualized dose optimization techniques were used for this CT. COMPARISON: 07/14/2016, 07/20/2017 FINDINGS: The lungs are normal. There is no demonstrated pleural abnormality. Normal heart and pericardium. Normal mediastinum. Normal hilar regions. Normal unenhanced pulmonary arteries. Normal aorta arch and descending thoracic aorta. Normal osseous structures. Mild renal atrophy. Bilateral extrarenal pelvi. CT/Chest without Contrast IMPRESSION: Lungs are clear. No effusion. Electronically Signed: Teodoro Patterson DO at 8:35 EDT , Service support ,
[2017-09-11 07:31] LABS: Anion Gap 8 (5-15); BUN 19 mg/dL (7-18); BUN/Creat Ratio 12.4 RATIO (10-20); Calcium,Total 7.6 mg/dL (8.5-10.1); Chloride 115 mmol/L (98-107); Creatinine, Serum 1.53 mg/dL (0.70-1.30); EST Glomerular Filtration Rate 51 mL/min (>60); Est Glom Filt Rate - Afr Amer 62 mL/min (>60); Glucose 91 mg/dL (74-106); Potassium 3.9 mmol/L (3.5-5.1); Sodium Level 144 mmol/L (136-145)
[2017-09-11 07:35] LABS: POSITIVE COUNT NO; POSITIVE DIFFERENTIAL NO; POSITIVE MORPHOLOGY NO
[2017-09-11] MEDS: Tacrolimus Anhydrous 1 MG Capsule 2 MG PO (09:08)
[2017-09-11] MEDS: Smz/Tmp Ds Tablet 0.5 TABLET PO (09:09)
[2017-09-11] MEDS: Mycophenolate Mofetil 250 MG Capsule 500 MG PO (09:09)
[2017-09-11] MEDS: Rivaroxaban 20 MG Tablet PO (09:09)
[2017-09-11] MEDS: guaiFENesin 1,200 MG Tablet 1200 MG PO (09:09)
--- NOTE | 2017-09-11 11:59 | CASEMGMT ---
Face to Face with patient for initial transition planning/care coordination assessment. JASMEET PINTO introduced self and role at [facility], pt voices understanding and consents to assessment at this time. Pt is sitting up in chair in no distress at this time. Pt is A/O x4 at this time and answers all questions appropriately. Care providers, pharmacy, and demographics verified. See attached link. Pt voices no further concerns/needs at this time. Advised pt to ask for CM if any further questions/concerns/needs arise, voices understanding. Pt's mother is currently admitted in Rehab. PLAN: [place] JASMEET PINTO
--- NOTE | 2017-09-11 12:51 | PCM.DC ---
- Discharge Diagnoses Current Active Problems: Current Active and Chronic Problems Bronchitis (Acute) You will use the following diet at home:: No restrictions Discharge Activity: Return to Normal Activity Call your doctor if you observe: Shortness of breath, Dizziness, Fainting spells, Chest pain Allergies/Adverse Reactions: Allergies No Known Allergies Allergy (Verified 09/10/17 21:48) Medications to take at Discharge Mycophenolate Mofetil [Cellcept] 500 mg PO BID 07/14/16 Amlodipine [Norvasc] 5 mg PO 2100 12/01/16 Tacrolimus Anhydrous [Prograf] 2 mg PO BID 12/02/16 Sulfamethoxazole/Trimethoprim [Sulfamethoxazole-Tmp Ss Tablet] 1 tab PO DAILY 07/13/17 Lactobacillus Acidophilus [Acidophilus] 1 tab PO BID #60 tab 07/18/17 Rivaroxaban [Xarelto] 20 mg PO DAILY 08/17/17 Guaifenesin/Codeine [Robitussin AC] 10 ml PO Q6H PRN PRN 3 Days #100 ml 08/18/17 Oxycodone [Oxyir] 5 mg PO Q6H PRN 3 Days #12 tablet 08/18/17 Albuterol Sulfate [Proair Respiclick] 90 mcg IH Q4H PRN PRN 09/10/17 Levofloxacin [Levaquin] 750 mg PO DAILY 09/10/17 Primary Care Physician: Mike Bella MD [Primary Care Provider] - Please follow up with your Primary Care Physician in: 1 Week Proposed Discharge Date: 09/11/17
--- NOTE | 2017-09-11 12:53 | PCM.DC.SUM ---
<Bharti Aly - Last Filed: 09/11/17 13:08> Discharge Date and Diagnosis Date of Admission: 09/11/17 Date of Discharge: 09/11/17 - Primary Discharge Diagnosis Active and Suspected Problems 1. Bronchitis secondary to human metaphneumo virus - Secondary Discharge Diagnosis Chronic Problems Pulmonary embolism (Chronic) Pulmonary infiltrate present on computed tomography (Chronic) CKD (chronic kidney disease), stage III (Chronic) Acute UTI (Chronic) Kidney transplant recipient (Chronic) Congenital nystagmus (Chronic) Mild MRDD (Chronic) DVT (deep venous thrombosis) (Chronic) Renal transplant, status post (Chronic) Neurogenic bladder disorder (Chronic) managed with cic Hospital Course and Treatment Imaging Results: Diagnostic Data Chest X-Ray 09/10/17 22:49 IMPRESSION: No significant change. Suspicion of medial right basilar infiltrate. Electronically Signed: López Wong MD at 23:22 EDT , Service support , Chest CT 09/11/17 07:25 IMPRESSION: Lungs are clear. No effusion. Electronically Signed: Teodoro Patterson DO at 8:35 EDT , Service support , Dr. Padilla- Pulmonary Medicine Operations: None Procedures: None Summary of Care Provided: The patient is a 52 year old M admitted 09/11/2017 due to cough, dyspnea. He has a past medical history of mild MRDD, congenital nystagmus, chronic kidney disease stage III status post renal transplant on chronic immunosuppressive therapy, neurogenic bladder requiring self-catheterization, history of DVT. Patient recently diagnosed with pneumonia 09/09/2017 and was started on oral Levaquin. Patient complained of continued cough and chest wall discomfort. Patient found to have bronchitis secondary to human metaphneumo virus. He can continue Levaquin as previously prescribed. Patient's oxygen is stable on room air. Afebrile. No leukocytosis. He was not noted to have significant cough during admission. No wheezing. Pulmonary consulted due to reported ongoing pulmonary symptoms. CT of chest completed July 20, 2017 showed filling defects within the segmental and segmental subsegmental pulmonary arteries within the right middle lobe consistent with pulmonary emboli. There was evidence of groundglass opacities associated with dependent consolidation within the lower lobes. CT of chest was completed this admission which showed the lungs are clear and no effusion. Respiratory panel positive for human metaphneumo virus. Patient is stable for discharge home with follow up with PCP in 1 week. Patient seen and examined prior to discharge. Heart rate regular rate and rhythm. Lungs clear. Abdomen soft, nontender. Neuro grossly intact. Vital signs stable. Patient stable for discharge home with follow-up with primary care physician in 1 week. This patient was seen by JASS Arauz under the supervision of Dr. Thrasher. Discharge Diet: No Restrictions Discharge Activity: Return to Normal Activity Call your doctor if you observe: Shortness of breath, Dizziness, Fainting spells, Chest pain Home Medications: Medications to take at Discharge Mycophenolate Mofetil [Cellcept] 500 mg PO BID 07/14/16 Amlodipine [Norvasc] 5 mg PO 2100 12/01/16 Tacrolimus Anhydrous [Prograf] 2 mg PO BID 12/02/16 Sulfamethoxazole/Trimethoprim [Sulfamethoxazole-Tmp Ss Tablet] 1 tab PO DAILY 07/13/17 Lactobacillus Acidophilus [Acidophilus] 1 tab PO BID #60 tab 07/18/17 Rivaroxaban [Xarelto] 20 mg PO DAILY 08/17/17 Guaifenesin/Codeine [Robitussin AC] 10 ml PO Q6H PRN PRN 3 Days #100 ml 08/18/17 Oxycodone [Oxyir] 5 mg PO Q6H PRN 3 Days #12 tablet 08/18/17 Albuterol Sulfate [Proair Respiclick] 90 mcg IH Q4H PRN PRN 09/10/17 Levofloxacin [Levaquin] 750 mg PO DAILY 09/10/17 Primary Care Physician: Mike Bella MD [Primary Care Provider] - Please follow up with your Primary Care Physician in: 1 Week Disposition: Home Minutes spent on discharge:: 35 Patient Condition:: Stable Medical Necessity - Tobacco Use Smoking Status: Never smoker Tobacco Use: Non-smoker Meaningful Use Info Meaningful Use Diagnoses (Choose all that apply): None applicable <Teresa Thrasher E - Last Filed: 09/11/17 14:16> Discharge Date and Diagnosis - Secondary Discharge Diagnosis Chronic Problems Pulmonary embolism (Chronic) Pulmonary infiltrate present on computed tomography (Chronic) CKD (chronic kidney disease), stage III (Chronic) Acute UTI (Chronic) Kidney transplant recipient (Chronic) Congenital nystagmus (Chronic) Mild MRDD (Chronic) DVT (deep venous thrombosis) (Chronic) Renal transplant, status post (Chronic) Neurogenic bladder disorder (Chronic) managed with cic Hospital Course and Treatment Imaging Results: 09/11/17 07:25 CT Chest [Chest without Contrast] [CT] Urgent Summary of Care Provided: Hospitalist note: Discharge summary above reviewed and I agree with above discharge plan. Patient was admitted because of cough and mild shortness of breath and he was found to have mild acute viral bronchitis. His chest x-ray showed no acute infiltrate. Pulmonology consulted and recommended to do CT scan chest without contrast. CT scan chest without contrast performed and showed no evidence of acute infiltrate or other acute findings. Pneumonia ruled out. His routine blood work was unremarkable, no leukocytosis. His vital signs were stable, remained afebrile and his pulse ox has been maintained on room air. Respiratory panel for viruses was positive for human Metaphneumo virus. Her symptoms attributed to my acute bronchitis. He was started on Levaquin as outpatient a few days ago for presumed pneumonia but his chest x-ray and CT chest showed no acute infiltrate. Patient discharged home in a stable medical condition, continued on Levaquin that started 3 days ago, continued on his other home medication without any changes, recommended follow-up with PCP in 1 week. Minutes spent on discharge:: 25 Code Visit OBSV E&M: 02664 Observ/hosp same date L1
--- NOTE | 2017-09-11 13:06 | DS.PCM_ITS ---
<Bharti Aly - Last Filed: 09/11/17 13:08> Discharge Date and Diagnosis Date of Admission: 09/11/17 Date of Discharge: 09/11/17 - Primary Discharge Diagnosis Active and Suspected Problems 1. Bronchitis secondary to human metaphneumo virus - Secondary Discharge Diagnosis Chronic Problems Pulmonary embolism (Chronic) Pulmonary infiltrate present on computed tomography (Chronic) CKD (chronic kidney disease), stage III (Chronic) Acute UTI (Chronic) Kidney transplant recipient (Chronic) Congenital nystagmus (Chronic) Mild MRDD (Chronic) DVT (deep venous thrombosis) (Chronic) Renal transplant, status post (Chronic) Neurogenic bladder disorder (Chronic) managed with cic Hospital Course and Treatment Imaging Results: Diagnostic Data Chest X-Ray 09/10/17 22:49 IMPRESSION: No significant change. Suspicion of medial right basilar infiltrate. Electronically Signed: López Wong MD at 23:22 EDT , Service support , Chest CT 09/11/17 07:25 IMPRESSION: Lungs are clear. No effusion. Electronically Signed: Teodoro Patterson DO at 8:35 EDT , Service support , Dr. Padilla- Pulmonary Medicine Operations: None Procedures: None Summary of Care Provided: The patient is a 52 year old M admitted 09/11/2017 due to cough, dyspnea. He has a past medical history of mild MRDD, congenital nystagmus, chronic kidney disease stage III status post renal transplant on chronic immunosuppressive therapy, neurogenic bladder requiring self-catheterization, history of DVT. Patient recently diagnosed with pneumonia 09/09/2017 and was started on oral Levaquin. Patient complained of continued cough and chest wall discomfort. Patient found to have bronchitis secondary to human metaphneumo virus. He can continue Levaquin as previously prescribed. Patient's oxygen is stable on room air. Afebrile. No leukocytosis. He was not noted to have significant cough during admission. No wheezing. Pulmonary consulted due to reported ongoing pulmonary symptoms. CT of chest completed July 20, 2017 showed filling defects within the segmental and segmental subsegmental pulmonary arteries within the right middle lobe consistent with pulmonary emboli. There was evidence of groundglass opacities associated with dependent consolidation within the lower lobes. CT of chest was completed this admission which showed the lungs are clear and no effusion. Respiratory panel positive for human metaphneumo virus. Patient is stable for discharge home with follow up with PCP in 1 week. Patient seen and examined prior to discharge. Heart rate regular rate and rhythm. Lungs clear. Abdomen soft, nontender. Neuro grossly intact. Vital signs stable. Patient stable for discharge home with follow-up with primary care physician in 1 week. This patient was seen by JASS Arauz under the supervision of Dr. Thrasher. Discharge Diet: No Restrictions Discharge Activity: Return to Normal Activity Call your doctor if you observe: Shortness of breath, Dizziness, Fainting spells , Chest pain Home Medications: Medications to take at Discharge Mycophenolate Mofetil [Cellcept] 500 mg PO BID 07/14/16 Amlodipine [Norvasc] 5 mg PO 2100 12/01/16 Tacrolimus Anhydrous [Prograf] 2 mg PO BID 12/02/16 Sulfamethoxazole/Trimethoprim [Sulfamethoxazole-Tmp Ss Tablet] 1 tab PO DAILY Lactobacillus Acidophilus [Acidophilus] 1 tab PO BID #60 tab 07/18/17 Rivaroxaban [Xarelto] 20 mg PO DAILY 08/17/17 Guaifenesin/Codeine [Robitussin AC] 10 ml PO Q6H PRN PRN 3 Days #100 ml Oxycodone [Oxyir] 5 mg PO Q6H PRN 3 Days #12 tablet 08/18/17 Albuterol Sulfate [Proair Respiclick] 90 mcg IH Q4H PRN PRN 09/10/17 Levofloxacin [Levaquin] 750 mg PO DAILY 09/10/17 Primary Care Physician: Mike Bella MD [Primary Care Provider] - Please follow up with your Primary Care Physician in: 1 Week Disposition: Home Minutes spent on discharge:: 35 Patient Condition:: Stable Medical Necessity - Tobacco Use Smoking Status: Never smoker Tobacco Use: Non-smoker Meaningful Use Info Meaningful Use Diagnoses (Choose all that apply): None applicable <Teresa Thrasher E - Last Filed: 09/11/17 14:16> Discharge Date and Diagnosis - Secondary Discharge Diagnosis Chronic Problems Pulmonary embolism (Chronic) Pulmonary infiltrate present on computed tomography (Chronic) CKD (chronic kidney disease), stage III (Chronic) Acute UTI (Chronic) Kidney transplant recipient (Chronic) Congenital nystagmus (Chronic) Mild MRDD (Chronic) DVT (deep venous thrombosis) (Chronic) Renal transplant, status post (Chronic) Neurogenic bladder disorder (Chronic) managed with cic Hospital Course and Treatment Imaging Results: 09/11/17 07:25 CT Chest [Chest without Contrast] [CT] Urgent Summary of Care Provided: Hospitalist note: Discharge summary above reviewed and I agree with above discharge plan. Patient was admitted because of cough and mild shortness of breath and he was found to have mild acute viral bronchitis. His chest x-ray showed no acute infiltrate. Pulmonology consulted and recommended to do CT scan chest without contrast. CT scan chest without contrast performed and showed no evidence of acute infiltrate or other acute findings. Pneumonia ruled out. His routine blood work was unremarkable, no leukocytosis. His vital signs were stable, remained afebrile and his pulse ox has been maintained on room air. Respiratory panel for viruses was positive for human Metaphneumo virus. Her symptoms attributed to my acute bronchitis. He was started on Levaquin as outpatient a few days ago for presumed pneumonia but his chest x-ray and CT chest showed no acute infiltrate. Patient discharged home in a stable medical condition, continued on Levaquin that started 3 days ago, continued on his other home medication without any changes, recommended follow-up with PCP in 1 week. Minutes spent on discharge:: 25 Code Visit OBSV E&M: [id number] Observ/hosp same date L1
== END 2017-09-11 15:57 | disposition home or self-care (01) | DRG 202 ==
LOC: ED 22:52 → MS3 09-11 00:58
PROVIDERS: Admitting Provider Family Medicine; Emergency Provider Emergency Medicine; Family Provider Family Medicine; PCP Family Medicine; Visit Provider Hospitalist
DX: J20.8 Acute bronchitis due to other specified organisms (principal); Z94.0 Kidney transplant status; H55.01 Congenital nystagmus; N31.9 Neuromuscular dysfunction of bladder, unspecified; N18.3 Chronic kidney disease, stage 3 (moderate); Z79.899 Other long term (current) drug therapy; Z86.718 Personal history of other venous thrombosis and embolism; B97.81 Human metapneumovirus as the cause of diseases classified elsewhere; F70 Mild intellectual disabilities; Z86.711 Personal history of pulmonary embolism; Z79.02 Long term (current) use of antithrombotics/antiplatelets; I12.9 Hypertensive chronic kidney disease with stage 1 through stage 4 chronic kidney disease, or unspecified chronic kidney disease
CPT/HCPCS: 36415; 71045; 71046; 71250; 80048; 81001; 83605; 83735; 85025; 87040; 87633; 93005; 94640; 94667; 97802; 99285; J7030; A4216

== ENCOUNTER 2017-09-20 07:56 | Outpatient (RCR) | payer MEDICARE, OTHER, SELFPAY ==
[2017-09-20 08:24] LABS: Hemoglobin 13.7 g/dl (13.0-16.5); Mean Corp Hgb Conc 32.6 g/gl (32-36); Mean Corpuscular Hgb 29.3 pg (27.0-32.0); Mean Corpuscular Volume 89.7 fL (80-94); Mean Platelet Vol. 10.6 fl (6.2-12.0); Platelet Count 201 K/mm3 (150-450); RBC Distribution Width CV 14.6 % (11.6-14.6); RBC Distribution Width SD 47.2 fl (35.1-43.9); Red Blood Count 4.68 M/mm3 (4.6-6.2); White Blood Count 8.4 K/mm3 (4.4-11.0)
[2017-09-20 08:25] LABS: Scan Indicated on CBC? Y/N NO
[2017-09-20 08:45] LABS: Albumin, Serum 3.9 g/dL (3.2-5.0); BUN 18 mg/dL (7-18); BUN/Creat Ratio 11.2 RATIO (10-20); Chloride 110 mmol/L (98-107); EST Glomerular Filtration Rate 49 mL/min (>60); Est Glom Filt Rate - Afr Amer 59 mL/min (>60); Glucose 93 mg/dL (74-106); Phosphorus 2.9 mg/dL (2.5-4.9); Potassium 3.7 mmol/L (3.5-5.1); Sodium Level 144 mmol/L (136-145)
[2017-09-22 14:29] LABS: Tacrolimus (FK506) 9.3 ng/mL (2.0-20.0)
== END 2017-09-20 08:00 | disposition home or self-care (01) ==
LOC: LAB 07:56
PROVIDERS: Family Provider Family Medicine; PCP Family Medicine
DX: D89.9 Disorder involving the immune mechanism, unspecified (principal); Z94.0 Kidney transplant status; R31.9 Hematuria, unspecified
CPT/HCPCS: 36415; 80069; 80197; 85027

== ENCOUNTER → 2017-09-23 15:47 | Outpatient (CLI) | payer MEDICARE, OTHER, SELFPAY ==
--- NOTE | 2017-09-23 15:51 | RAD_ITS ---
STUDY: X-RAY CHEST REASON FOR EXAM: Male, 52 years old. Cough TECHNIQUE: Frontal and lateral view of the chest. COMPARISON: September 10, 2017 FINDINGS: The lungs are clear and expanded. There is no demonstrated pleural abnormality. Normal size heart. Normal mediastinum and alton. Normal visualized pulmonary arteries. Normal visualized aortic arch and descending thoracic aorta. There are diffuse degenerative changes of the visualized thoracic spine. Normal visualized ribs, clavicles, and shoulders. There is no demonstrated abnormality of the visualized soft tissue structures of the upper abdomen. RAD/Chest PA and Lateral IMPRESSION: There are no acute findings in the chest. Electronically Signed: Hans Wong MD at 16:29 EDT , Service support ,
== END ==
PROVIDERS: Family Provider Family Medicine; PCP Family Medicine; Visit Provider Family Medicine
DX: R05 Cough (principal)
CPT/HCPCS: 71046

== ENCOUNTER 2017-09-28 23:08 | Emergency (ER) | payer MEDICARE, OTHER, SELFPAY ==
[2017-09-28 23:11] VITALS: BP 152/86; PULSE 113; RESP 22; TEMP 37.3; O2SAT 97; BMI 28.5
[2017-09-28 23:31] VITALS: O2SAT 96
--- NOTE | 2017-09-28 23:51 | EKG12_ITS ---
Test Reason : SOB Blood Pressure : / mmHG Vent. Rate : 098 BPM Atrial Rate : 098 BPM P-R Int : 124 ms QRS Dur : 080 ms QT Int : 362 ms P-R-T Axes : 048 006 053 degrees QTc Int : 462 ms Normal sinus rhythm Normal ECG Confirmed by NATASHA REID ([id number]), multimedia editor EUGENIO CONKLIN ([id number]) on 10/11/2017 5:50:29 PM Referred By: SHAWANDA Confirmed By:NATASHA REID
--- NOTE | 2017-09-29 | RAD_ITS ---
STUDY: X-RAY CHEST REASON FOR EXAM: Male, 52 years old. Cough TECHNIQUE: Frontal and lateral views of the chest. COMPARISON: 09/23/2017 FINDINGS: Pulmonary hyperinflation without acute alveolar disease. There is no demonstrated pleural abnormality. Normal size heart. Normal mediastinum and alton. Normal visualized pulmonary arteries. Normal visualized aortic arch and descending thoracic aorta. There are diffuse degenerative changes of the visualized thoracic spine. Normal visualized ribs, clavicles, and shoulders. There is no demonstrated abnormality of the visualized soft tissue structures of the upper abdomen. RAD/Chest PA and Lateral IMPRESSION: Pulmonary hyperinflation without acute alveolar disease. Electronically Signed: Renan Marin MD at 1:38 EDT Tel , Service support ,
[2017-09-29 00:05] VITALS: PULSE 101; RESP 18
[2017-09-29] MEDS: Ipratropium/Albuterol Sulfate 3 ML AMPUL.NEB INHALATION (00:06)
[2017-09-29] MEDS: Ondansetron 4 MG/2 ML Vial IV (00:11)
[2017-09-29] MEDS: Morphine 4 MG/ML Syringe IV (00:12)
[2017-09-29 00:24] LABS: Absolute Neutrophil Count 3.2 X10^3/uL (2.0-7.7); Basophil# 0.02 X10^3/uL; Basophil% 0.4 % (0-1); Eosinophil# 0.05 X10^3/uL; Hematocrit 39.3 % (40-54); Hemoglobin 12.5 g/dl (13.0-16.5); Lymphocyte % 19.2 % (19-41); Mean Corp Hgb Conc 31.8 g/gl (32-36); Mean Corpuscular Hgb 28.6 pg (27.0-32.0); Mean Corpuscular Volume 89.9 fL (80-94); Mean Platelet Vol. 10.5 fl (6.2-12.0); Monocyte# 0.95 X10^3/uL; Monocyte% 18.3 % (0-10); Neutrophil # 3.17 X10^3/uL (2.7-7.7); Neutrophil % 60.9 % (47-70); Platelet Count 187 K/mm3 (150-450); RBC Distribution Width CV 14.5 % (11.6-14.6); RBC Distribution Width SD 47.5 fl (35.1-43.9); Red Blood Count 4.37 M/mm3 (4.6-6.2); White Blood Count 5.2 K/mm3 (4.4-11.0)
[2017-09-29 00:27] LABS: POSITIVE COUNT NO; POSITIVE DIFFERENTIAL NO; POSITIVE MORPHOLOGY NO
[2017-09-29 00:44] LABS: Anion Gap 8 (5-15); BUN 16 mg/dL (7-18); BUN/Creat Ratio 9.6 RATIO (10-20); Calcium,Total 7.9 mg/dL (8.5-10.1); Chloride 114 mmol/L (98-107); Creatinine, Serum 1.66 mg/dL (0.70-1.30); EST Glomerular Filtration Rate 47 mL/min (>60); Est Glom Filt Rate - Afr Amer 57 mL/min (>60); Estimated Creatinine Clearance 60.17 ml/min; Glucose 96 mg/dL (74-106); Potassium 4.2 mmol/L (3.5-5.1); Sodium Level 143 mmol/L (136-145)
[2017-09-29 01:26] VITALS: PULSE 98; RESP 19; O2SAT 95
--- NOTE | 2017-09-29 02:03 | ED.DCSUM_ITS ---
- ER Visit Summary Date of Service: 09/29/17 Chief Complaint: Cough History of Present Illness: The patient is a 52 M who presents with a cough. He has had a chronic cough for about 2 months. He has had a couple of admissions. There was questionable pneumonia. Most recently he was diagnosed with a viral bronchitis. He had a x-ray last week. He has been on several rounds of antibiotics. He is currently on Augmentin. He states that he is having worsening chest pain only from coughing. He denies feeling short of breath. No fevers nausea vomiting or diarrhea. Physical Examination: Initial heart rate 113, normal on recheck. Vitals otherwise unremarkable Mucous membranes Heart regular rhythm tachycardia Lungs are clear Anterior chest wall tenderness Alert Test Results: EKG shows sinus rhythm at a rate of 98. Chest x-ray shows hyperinflation no acute disease. Laboratory studies notable for creatinine 1.66 otherwise essentially unremarkable. Emergency Department Course and Treatment: Patient was given morphine here for pain. He had improvement of symptoms. He is resting comfortably on reevaluation. I explained to family that there is no indication for admission at this time and to continue current outpatient treatment. They are comfortable with this plan and the patient was discharged. He will follow-up as an outpatient. Treatment Plan: [] Disposition: Discharge Impression: Chronic cough This note was generated with [employer] dictation software. It may contain incorrect words, spelling, and punctuation that were not noted in review of the chart prior to signing ED Disposition - Plan for ED Patient: Chief Complaint: Shortness of Breath Referrals: Mike Bella MD [Primary Care Provider] -
--- NOTE | 2017-09-29 02:03 | ED.DEP ---
ED Disposition - Plan for ED Patient: Chief Complaint: Shortness of Breath Instructions: ED Cough Chronic Cause Unkn Referrals: Mike Bella MD [Primary Care Provider] -
[2017-09-29 02:30] VITALS: BP 136/83; PULSE 90; RESP 16; O2SAT 95
--- NOTE | 2017-09-29 02:30 | ED.RN ---
IV DC'ED, CATHETER INTACT, SMALL GAUZE DRESSING PLACED. DISCHARGE INSTRUCTIONS GIVEN TO AND REVIEWED WITH PATIENT, PATIENT DENIES QUESTIONS OR CONCERNS AND VOICES UNDERSTANDING OF DISCHARGE INSTRUCTIONS. PT TO PRIVATE VEHICLE VIA WHEELCHAIR.
== END 2017-09-29 02:31 | disposition home or self-care (01) ==
PROVIDERS: Emergency Provider Emergency Medicine; Family Provider Family Medicine; PCP Family Medicine
DX: R05 Cough (principal); I12.9 Hypertensive chronic kidney disease with stage 1 through stage 4 chronic kidney disease, or unspecified chronic kidney disease; N18.9 Chronic kidney disease, unspecified; Z86.718 Personal history of other venous thrombosis and embolism; Z86.711 Personal history of pulmonary embolism; Z79.01 Long term (current) use of anticoagulants; Z79.899 Other long term (current) drug therapy
CPT/HCPCS: 71046; 80048; 84484; 85025; 93005; 94640; 96374; 96375; 99283; A4216; J2405

== ENCOUNTER → 2017-10-20 11:11 | Outpatient (CLI) | payer MEDICARE, OTHER, SELFPAY ==
--- NOTE | 2017-10-20 11:14 | RAD_ITS ---
STUDY: X-RAY CHEST REASON FOR EXAM: Male, 52 years old. Cough TECHNIQUE: Frontal and lateral views COMPARISON: September 29, 2017 FINDINGS: The lungs are clear and expanded. There is no demonstrated pleural abnormality. Normal size heart. Normal mediastinum and alton. Normal visualized pulmonary arteries. Normal visualized aortic arch and descending thoracic aorta. Degenerative changes of the thoracic spine. Mild wedge compression of several mid thoracic vertebral segments. Normal visualized ribs, clavicles, and shoulders. There is no demonstrated abnormality of the visualized soft tissue structures of the upper abdomen. RAD/Chest PA and Lateral IMPRESSION: Normal x-ray examination of the chest. Electronically Signed: Renato Lawson DO at 18:13 EDT Tel [phone], Service support ,
== END ==
PROVIDERS: Family Provider Family Medicine; PCP Family Medicine; Visit Provider Family Medicine
DX: R05 Cough (principal)
CPT/HCPCS: 71046

== ENCOUNTER 2017-10-21 07:55 | Outpatient (RCR) | payer MEDICARE, OTHER, SELFPAY ==
[2017-10-21 08:29] LABS: Hematocrit 43.3 % (40-54); Hemoglobin 13.8 g/dl (13.0-16.5); Mean Corp Hgb Conc 31.9 g/gl (32-36); Mean Corpuscular Hgb 28.9 pg (27.0-32.0); Mean Corpuscular Volume 90.6 fL (80-94); Platelet Count 186 K/mm3 (150-450); RBC Distribution Width CV 14.3 % (11.6-14.6); RBC Distribution Width SD 47.1 fl (35.1-43.9); Red Blood Count 4.78 M/mm3 (4.6-6.2); White Blood Count 7.2 K/mm3 (4.4-11.0)
[2017-10-21 08:30] LABS: Scan Indicated on CBC? Y/N NO
[2017-10-21 08:57] LABS: Albumin, Serum 3.9 g/dL (3.2-5.0); BUN 27 mg/dL (7-18); BUN/Creat Ratio 16.4 RATIO (10-20); Calcium,Total 8.5 mg/dL (8.5-10.1); Chloride 109 mmol/L (98-107); Creatinine, Serum 1.65 mg/dL (0.70-1.30); EST Glomerular Filtration Rate 47 mL/min (>60); Est Glom Filt Rate - Afr Amer 57 mL/min (>60); Glucose 90 mg/dL (74-106); Phosphorus 3.1 mg/dL (2.5-4.9); Potassium 4.1 mmol/L (3.5-5.1); Sodium Level 142 mmol/L (136-145)
[2017-10-26 12:05] LABS: Tacrolimus (FK506) 6.4 ng/mL (2.0-20.0)
== END 2017-10-21 09:00 | disposition home or self-care (01) ==
LOC: LAB 07:55
PROVIDERS: Family Provider Family Medicine; PCP Family Medicine
DX: R31.9 Hematuria, unspecified (principal); D89.9 Disorder involving the immune mechanism, unspecified; Z94.0 Kidney transplant status
CPT/HCPCS: 36415; 80069; 80197; 85027

== ENCOUNTER → 2017-10-30 07:56 | Outpatient (CLI) | payer MEDICARE, OTHER, SELFPAY | PROVIDERS: Family Provider Family Medicine; PCP Family Medicine; Visit Provider Family Medicine | DX: J18.9 Pneumonia, unspecified organism (principal) | CPT/HCPCS: 94640 ==

== ENCOUNTER 2017-11-19 07:40 | Outpatient (RCR) | payer MEDICARE, OTHER, SELFPAY ==
[2017-11-19 08:13] LABS: Hematocrit 41.8 % (40-54); Hemoglobin 13.6 g/dl (13.0-16.5); Mean Corp Hgb Conc 32.5 g/gl (32-36); Mean Corpuscular Hgb 29.1 pg (27.0-32.0); Mean Corpuscular Volume 89.3 fL (80-94); Mean Platelet Vol. 10.1 fl (6.2-12.0); Platelet Count 190 K/mm3 (150-450); RBC Distribution Width CV 13.4 % (11.6-14.6); RBC Distribution Width SD 43.5 fl (35.1-43.9); Red Blood Count 4.68 M/mm3 (4.6-6.2)
[2017-11-19 08:14] LABS: Scan Indicated on CBC? Y/N NO
[2017-11-19 08:35] LABS: Albumin, Serum 3.6 g/dL (3.2-5.0); BUN 23 mg/dL (7-18); BUN/Creat Ratio 14.4 RATIO (10-20); Chloride 113 mmol/L (98-107); EST Glomerular Filtration Rate 49 mL/min (>60); Est Glom Filt Rate - Afr Amer 59 mL/min (>60); Glucose 95 mg/dL (74-106); Phosphorus 2.2 mg/dL (2.5-4.9); Sodium Level 141 mmol/L (136-145)
[2017-11-23 15:32] LABS: Tacrolimus (FK506) 7.3 ng/mL (2.0-20.0)
== END 2017-11-19 09:00 | disposition home or self-care (01) ==
LOC: LAB 07:40
PROVIDERS: Family Provider Family Medicine; PCP Family Medicine
DX: D89.9 Disorder involving the immune mechanism, unspecified (principal); Z94.0 Kidney transplant status
CPT/HCPCS: 36415; 80069; 80197; 85027

== ENCOUNTER 2017-12-07 12:32 | Emergency (ER) | payer MEDICARE, OTHER, SELFPAY ==
[2017-12-07 12:34] VITALS: BP 148/84; PULSE 125; RESP 16; TEMP 38.1; O2SAT 98; BMI 23.1
--- NOTE | 2017-12-07 13:09 | RAD_ITS ---
STUDY: X-RAY CHEST REASON FOR EXAM: Male, 52 years old. Fever and cough. TECHNIQUE: Frontal and lateral views of the chest. COMPARISON: 10/20/2017. FINDINGS: The lungs are hyperexpanded. There are coarsened interstitial markings suggestive of mild chronic fibrosis. No gross focal infiltrates. No gross effusions. Normal size heart. Normal mediastinum and alton. Normal visualized pulmonary arteries. Normal visualized aortic arch and descending thoracic aorta. There are diffuse degenerative changes of the visualized thoracic spine. Normal visualized ribs, clavicles, and shoulders. There is no demonstrated abnormality of the visualized soft tissue structures of the upper abdomen. RAD/Chest PA and Lateral IMPRESSION: There are findings consistent with COPD. There is no evidence of acute chest disease. Electronically Signed: López Wong MD at 13:56 EDT , Service support ,
[2017-12-07] MEDS: Acetaminophen 500 MG Tablet 1000 MG PO (13:21)
[2017-12-07 13:45] LABS: Absolute Lymphocyte Count 0.96 X10^3/ul (0.83-4.51); Absolute Neutrophil Count 8.5 X10^3/uL (2.0-7.7); Basophil# 0.02 X10^3/uL; Basophil% 0.2 % (0-1); Eosinophil# 0.01 X10^3/uL; Eosinophils% 0.1 % (0-5); Hematocrit 41.2 % (40-54); Lymphocyte # 0.96 X10^3/ul (4.0); Lymphocyte % 9.6 % (19-41); Mean Corp Hgb Conc 31.6 g/gl (32-36); Mean Corpuscular Hgb 28.1 pg (27.0-32.0); Mean Corpuscular Volume 89.2 fL (80-94); Mean Platelet Vol. 10.1 fl (6.2-12.0); Neutrophil # 8.54 X10^3/uL (2.7-7.7); Neutrophil % 85.9 % (47-70); Platelet Count 233 K/mm3 (150-450); RBC Distribution Width CV 13.7 % (11.6-14.6); RBC Distribution Width SD 44.7 fl (35.1-43.9); Red Blood Count 4.62 M/mm3 (4.6-6.2)
[2017-12-07 13:48] LABS: POSITIVE COUNT NO; POSITIVE DIFFERENTIAL NO; POSITIVE MORPHOLOGY NO
[2017-12-07 14:05] LABS: ALB/GLOB Ratio 0.9 RATIO (0.9-2.4); AST(SGOT) 18 U/L (15-37); Alanine Aminotransfer ALT/SGPT 20 U/L (16-61); Albumin, Serum 3.5 g/dL (3.2-5.0); Alkaline Phosphatase 61 U/L (45-117); Anion Gap 7 (5-15); BUN 19 mg/dL (7-18); BUN/Creat Ratio 10.1 RATIO (10-20); Calcium,Total 8.3 mg/dL (8.5-10.1); Chloride 108 mmol/L (98-107); Creatinine, Serum 1.89 mg/dL (0.70-1.30); EST Glomerular Filtration Rate 40 mL/min (>60); Est Glom Filt Rate - Afr Amer 49 mL/min (>60); Globulin 4.1 g/dL (2.2-4.2); Glucose 104 mg/dL (74-106); Potassium 4.1 mmol/L (3.5-5.1); Protein, Total 7.6 g/dL (6.4-8.2); Sodium Level 139 mmol/L (136-145)
[2017-12-07 14:15] LABS: Mucous, Urine 0 SEEN /hpf (<or=2+)
[2017-12-07 14:47] LABS: Color, Urine Yellow (Yellow); Glucose, Dipstick Normal (Normal); Ketone-Dipstick 5 mg/dl (Negative); Leukocyte Esterase-Dipstick 500 /ul (Negative); Nitrite-Dipstick Positive (Negative); Occult Blood-Urine 250 /ul (Negative); Protein-Dipstick 100 mg/dl (Negative); Specific Gravity, Urine 1.015 (1.002-1.030); Urine Bilirubin Dipstick Negative (Negative); Urine Clarity Sl. Cloudy (Clear); Urine Urobilinogen Normal (Normal)
[2017-12-07 14:50] LABS: Bacteria 2+ /hpf (None Seen)
[2017-12-07 14:51] LABS: Red Blood Cells-Urine 25-50 SEEN /hpf (0-5); Squamous Epithelial Cells - UA 0-5 SEEN /hpf (0-5); White Blood Cells 25-50 SEEN /hpf (0-5)
[2017-12-07 14:55] VITALS: TEMP 37.7
--- NOTE | 2017-12-07 15:42 | ED.VISSUMM ---
- ER Visit Summary Date of Service: 12/07/17 Chief Complaint: Fever History of Present Illness: The patient is a 52 M who presents with fever that began yesterday. Mother states that the patient has had recurrent fever. Mother states the patient has had a cough and sore throat for the past 6 weeks. Mother states patient has laryngitis and is unable to talk. Patient is chronically on Bactrim and was also started on Zithromax yesterday. Patient has a history of renal transplant and is on rejection medications. Patient states he does have a history of frequent urinary tract infections. Mother states the patient does cath himself regularly. Physical Examination: Vital signs showed a heart rate of 125 a temperature of 100.5. The remaining vital signs are normal. Oral mucosa is pink and moist. Neck is supple. There is no JVD noted. Heart was regular and tachycardic. Lungs are clear and equal bilaterally. Abdomen is soft nontender. Cranial nerves II through XII are intact. There are no focal motor or sensory deficits noted. The remaining physical exam is within normal limits. Test Results: PA and lateral chest x-ray does not show any acute cardiopulmonary process. CBC was normal. Basic metabolic profile showed an elevated BUN of 19 and creatinine of 1.89. This is consistent with prior results. Urinalysis shows evidence of urinary tract infection. Emergency Department Course and Treatment: Urine culture was obtained. Blood cultures were also obtained. Patient was started on Cipro here. Patient was given a prescription for Cipro. Patient was instructed to follow-up with his primary care physician in 3-5 days. Patient and his mother and sister understood and were agreeable with the plan. All questions were answered. Disposition: Discharged home Impression: Urinary tract infection This note was generated with [employer] dictation software. It may contain incorrect words, spelling, and punctuation that were not noted in review of the chart prior to signing ED Disposition - Plan for ED Patient: Disposition: Home or Assisted Living Chief Complaint: Fever Diagnosis: Urinary tract infection associated with catheterization of urinary tract, Acute UTI, Kidney transplant recipient Instructions: ED UTI Pyelonephritis Male Prescriptions: Ciprofloxacin [Cipro] 500 mg PO BID #14 tab Referrals: Mike Bella MD [Primary Care Provider] -
[2017-12-07] MEDS: Ciprofloxacin 250 MG Tablet 500 MG PO (16:05)
[2017-12-07 16:13] VITALS: BP 135/75; PULSE 95; RESP 18; O2SAT 98
== END 2017-12-07 16:13 | disposition home or self-care (01) ==
PROVIDERS: Emergency Provider Emergency Medicine; Family Provider Family Medicine; PCP Family Medicine
DX: N39.0 Urinary tract infection, site not specified (principal); R07.9 Chest pain, unspecified; R05 Cough; J02.9 Acute pharyngitis, unspecified; Z94.0 Kidney transplant status; Z87.440 Personal history of urinary (tract) infections; Z86.711 Personal history of pulmonary embolism; Z87.01 Personal history of pneumonia (recurrent); Z79.01 Long term (current) use of anticoagulants; Z79.899 Other long term (current) drug therapy
CPT/HCPCS: 71046; 80053; 81001; 83605; 85025; 87040; 87077; 87086; 87088; 87186; 99284; P9612

== ENCOUNTER → 2017-12-11 06:53 | Outpatient (CLI) | payer MEDICARE, OTHER, SELFPAY ==
--- NOTE | 2017-12-11 06:56 | CT_ITS ---
STUDY: CT CHEST WITHOUT CONTRAST REASON FOR EXAM: Male, 52 years old. Bilateral upper lung pain, question pleurisy. History of kidney transplantation in 2016. Last voice in August still has not come back. RADIATION DOSAGE (If Supplied By Facility): CTDIvol = ( 15.45 ) mGy, DLP = ( 594.4 ) mGycm TECHNIQUE: Transaxial imaging was performed without the administration of intravenous contrast material. Multiplanar coronal and sagittal images were reformatted. Individualized dose optimization techniques were used for this CT. COMPARISON: CT chest: 09/11/2017 FINDINGS: Motion induced image degradation. There is hyperinflation of the lungs consistent with chronic obstructive lung disease (COPD). There is basilar mild pulmonary interstitial thickening. Biapical significant pleural parenchymal thickening/scarring. There is no demonstrated pleural abnormality. Normal heart and pericardium. There are calcifications of the coronary arteries. There is no significant mediastinal or hilar lymphadenopathy demonstrated. Normal unenhanced pulmonary arteries. Normal aorta arch and descending thoracic aorta. There is demineralization of the thoracic spine. Multilevel mid thoracic vertebral wedging/compression deformity noted with increased thoracic kyphosis. There is also multilevel mid thoracic degenerative endplate spondylosis. There is no demonstrated acute abnormality of the visualized upper abdomen. There is severe bilateral renal atrophy. Fluid-filled patulous distended right renal pelvis. Bilateral multiple renal cysts. CT/Chest without Contrast IMPRESSION: 1. COPD changes. Bibasilar mildly increased pulmonary interstitial thickening. Biapical pleural parenchymal thickening/scarring. 2. Osteopenia. Multiple wedge compression vertebral deformities. Increased thoracic kyphosis. Degenerative thoracic endplate spondylosis. 3. Severe bilateral renal atrophy. Bilateral renal cysts. Right hydronephrosis/hydroureter.. Electronically Signed: Osiris Chatman MD at 10:02 EDT Tel , Service support ,
== END ==
PROVIDERS: Family Provider Family Medicine; PCP Family Medicine; Visit Provider Internal Medicine Critical Care Medicine
DX: R06.02 Shortness of breath (principal)
CPT/HCPCS: 71250

== ENCOUNTER 2017-12-20 07:41 | Outpatient (RCR) | payer MEDICARE, OTHER, SELFPAY ==
[2017-12-20 08:45] LABS: Hematocrit 40.8 % (40-54); Hemoglobin 12.6 g/dl (13.0-16.5); Mean Corp Hgb Conc 30.9 g/gl (32-36); Mean Corpuscular Hgb 27.6 pg (27.0-32.0); Mean Corpuscular Volume 89.5 fL (80-94); Mean Platelet Vol. 9.8 fl (6.2-12.0); Platelet Count 291 K/mm3 (150-450); RBC Distribution Width CV 14.5 % (11.6-14.6); RBC Distribution Width SD 47.4 fl (35.1-43.9); Red Blood Count 4.56 M/mm3 (4.6-6.2); White Blood Count 8.2 K/mm3 (4.4-11.0)
[2017-12-20 08:50] LABS: Scan Indicated on CBC? Y/N NO
[2017-12-20 09:15] LABS: Albumin, Serum 3.4 g/dL (3.2-5.0); BUN 19 mg/dL (7-18); BUN/Creat Ratio 12.5 RATIO (10-20); Calcium,Total 7.9 mg/dL (8.5-10.1); Chloride 110 mmol/L (98-107); Creatinine, Serum 1.52 mg/dL (0.70-1.30); EST Glomerular Filtration Rate 52 mL/min (>60); Est Glom Filt Rate - Afr Amer 63 mL/min (>60); Glucose 90 mg/dL (74-106); Phosphorus 2.5 mg/dL (2.5-4.9); Potassium 3.5 mmol/L (3.5-5.1); Sodium Level 144 mmol/L (136-145)
[2017-12-22 15:38] LABS: Tacrolimus (FK506) 4.8 ng/mL (2.0-20.0)
== END 2017-12-20 09:00 | disposition home or self-care (01) ==
LOC: LAB 07:41
PROVIDERS: Family Provider Family Medicine; PCP Family Medicine
DX: D89.9 Disorder involving the immune mechanism, unspecified (principal); Z94.0 Kidney transplant status
CPT/HCPCS: 36415; 80069; 80197; 85027

== ENCOUNTER 2018-01-11 15:03 | Inpatient (IN) | payer MEDICARE, OTHER, SELFPAY ==
[2018-01-11 15:04] VITALS: BP 123/75; PULSE 114; RESP 17; TEMP 37.4; O2SAT 99; BMI 23.1
--- NOTE | 2018-01-11 15:54 | CT_ITS ---
STUDY: CT ABDOMEN AND PELVIS WITHOUT CONTRAST REASON FOR EXAM: Male, 52 years old. Abdominal pain RADIATION DOSAGE (If Supplied By Facility): CTDIvol = ( 6.69 ) mGy, DLP = ( 325.87 ) mGycm TECHNIQUE: Transaxial images were obtained from the lower chest to the upper thighs without oral contrast, and without intravenous contrast. Sagittal and coronal images were reconstructed. Individualized dose optimization techniques were used for this CT. COMPARISON: July 16, 2017 FINDINGS: There is minimal dependent atelectasis in both lung bases. There is no pleural effusion. The heart is normal in size. The liver is prominent in size with slight decreased density, suggesting fatty infiltration. The gallbladder and biliary ducts are unremarkable. The spleen is unremarkable. The pancreas is unremarkable. The adrenal glands are unremarkable. The [place] kidneys are markedly atrophic with cortical thinning and numerous cysts. There is marked dilatation of the collecting systems in both [place] kidneys, and there is marked dilatation of both [place] ureters. There is a transplant kidney in the right pelvis. There is mild dilatation of the collecting system in the transplant kidney. The stomach is unremarkable. A few small bowel loops are prominent. There is moderate stool in the proximal colon. There is non-visualization of the appendix. The aorta and branch vessels are unremarkable. The IVC is unremarkable. The retroperitoneum is unremarkable. There is no free fluid in the abdomen. The urinary bladder is distended. There is wall thickening along the bladder. The prostate is normal in size with coarse calcifications. There are small phleboliths scattered in the lower pelvis. The soft tissues are unremarkable. There are mild degenerative changes in the visualized spine. CT/Abdomen/Pelvis without Cont IMPRESSION: There is marked distention of the urinary bladder with wall thickening, possible cystitis. There is mild hydronephrosis in the transplant kidney located in the right pelvis. There is marked hydroureter and hydronephrosis of the [place] ureters and kidneys, increased compared to the prior CT. There is small bowel ileus. There is no evidence of bowel obstruction. There is moderate stool in the colon. There is no ascites, free air or significant lymphadenopathy. Electronically Signed: Vania Miramontes MD at 16:50 EDT Tel Direct: [phone], Service support ,
--- NOTE | 2018-01-11 15:56 | ED.DCSUM_ITS ---
- ER Visit Summary Date of Service: 01/11/18 Chief Complaint: Abdominal pain History of Present Illness: The patient is a 52 M who presents with abdominal pain. States it started today. It sharp and diffuse. Nothing makes it better or worse. Denies nausea or vomiting. He did have some diarrhea last night. Denies any urinary symptoms. Patient has a history of a kidney transplant. This was due to postobstructive uropathy. He now self cath. He is on tacrolimus and mycophenolate for immunosuppression. He is also on Xarelto for PE. His urine has been darker. There is been no fevers. Physical Examination: Vital signs reviewed. HEENT exam unremarkable. Heart is tachycardic and regular rhythm without murmurs. Lungs are clear to auscultation. Abdomen is soft with diffuse tenderness. There is voluntary guarding diffusely. Right arm fistula is patent with a pulse with good thrill. Extremities reveal no edema. Skin exam normal. Neurologic exam normal. Test Results: White blood cell count normal. Creatinine 2.13, urinalysis shows infection with blood. CAT scan reveals bladder distention, mild hydronephrosis as well as a small bowel ileus. Emergency Department Course and Treatment: Patient was given morphine with IV fluids. He was started on Rocephin. I spoke with the hospitalist and she informed me that the last 2 urine culture is were resistant to Rocephin however the patient already received it. Likely will be switched to Zosyn. Patient will have a Ga catheter placed due to the bladder distention. He will be admitted to the hospital. Lactic acid is pending Treatment Plan: [] Disposition: Admit Impression: Sepsis, UTI, ileus, This note was generated with [employer] dictation software. It may contain incorrect words, spelling, and punctuation that were not noted in review of the chart prior to signing ED Disposition - Plan for ED Patient: Chief Complaint: Abd Pain Referrals: Mike Bella MD [Primary Care Provider] -
[2018-01-11] MEDS: Ondansetron 4 MG/2 ML Vial IV (16:06)
[2018-01-11] MEDS: Morphine 4 MG/ML Syringe IV (16:06)
[2018-01-11 16:11] LABS: Absolute Lymphocyte Count 0.64 X10^3/ul (0.83-4.51); Absolute Neutrophil Count 5.3 X10^3/uL (2.0-7.7); Basophil# 0.02 X10^3/uL; Basophil% 0.3 % (0-1); Eosinophil# 0.13 X10^3/uL; Eosinophils% 1.8 % (0-5); Hematocrit 35.1 % (40-54); Lymphocyte # 0.64 X10^3/ul (4.0); Lymphocyte % 8.8 % (19-41); Mean Corp Hgb Conc 31.3 g/gl (32-36); Mean Corpuscular Hgb 26.7 pg (27.0-32.0); Mean Corpuscular Volume 85.2 fL (80-94); Mean Platelet Vol. 9.5 fl (6.2-12.0); Monocyte% 16.5 % (0-10); Neutrophil # 5.27 X10^3/uL (2.7-7.7); Neutrophil % 72.5 % (47-70); Platelet Count 509 K/mm3 (150-450); RBC Distribution Width CV 14.8 % (11.6-14.6); RBC Distribution Width SD 46.2 fl (35.1-43.9); Red Blood Count 4.12 M/mm3 (4.6-6.2); White Blood Count 7.3 K/mm3 (4.4-11.0)
[2018-01-11 16:14] LABS: Anion Gap 12 (5-15); BUN 25 mg/dL (7-18); BUN/Creat Ratio 11.7 RATIO (10-20); Calcium,Total 8.6 mg/dL (8.5-10.1); Chloride 108 mmol/L (98-107); Creatinine, Serum 2.13 mg/dL (0.70-1.30); EST Glomerular Filtration Rate 35 mL/min (>60); Est Glom Filt Rate - Afr Amer 42 mL/min (>60); Estimated Creatinine Clearance 45.52 ml/min; Glucose 115 mg/dL (74-106); POSITIVE COUNT NO; POSITIVE DIFFERENTIAL NO; POSITIVE MORPHOLOGY NO; Potassium 4.4 mmol/L (3.5-5.1); Sodium Level 139 mmol/L (136-145)
[2018-01-11 16:27] LABS: Lipase 230 U/L (73-393)
[2018-01-11 16:47] LABS: Mucous, Urine 0 SEEN /hpf (<or=2+)
[2018-01-11 16:53] VITALS: BP 127/84; PULSE 98; RESP 16
[2018-01-11 17:02] LABS: AST(SGOT) 20 U/L (15-37); Alanine Aminotransfer ALT/SGPT 21 U/L (16-61); Albumin, Serum 3.1 g/dL (3.2-5.0); Alkaline Phosphatase 81 U/L (45-117); Bilirubin, Direct 0.12 mg/dL (0.00-0.30); Globulin 4.5 g/dL (2.2-4.2); Protein, Total 7.6 g/dL (6.4-8.2)
[2018-01-11] MEDS: 0.9% Normal Saline 1,000 ML 999 ML IV (17:15)
[2018-01-11 17:25] LABS: Color, Urine Brown (Yellow); Glucose, Dipstick Normal (Normal); Ketone-Dipstick 5 mg/dl (Negative); Leukocyte Esterase-Dipstick 500 /ul (Negative); Nitrite-Dipstick Positive (Negative); Occult Blood-Urine 250 /ul (Negative); Protein-Dipstick 500 mg/dl (Negative); Specific Gravity, Urine 1.015 (1.002-1.030); Urine Bilirubin Dipstick Negative (Negative); Urine Clarity Turbid (Clear); Urine Urobilinogen Normal (Normal); Urine pH 6.5 (5.0 - 8.0)
[2018-01-11 17:55] LABS: Red Blood Cells-Urine > 100 SEEN /hpf (0-5); White Blood Cells >100 SEEN /hpf (0-5)
[2018-01-11 17:56] LABS: Bacteria 2+ /hpf (None Seen); Squamous Epithelial Cells - UA 0-5 SEEN /hpf (0-5)
[2018-01-11 18:38] VITALS: BP 134/85; PULSE 98; RESP 16
--- NOTE | 2018-01-11 19:01 | PCM.HP.STD ---
Problem List (1) Acute UTI Status: Acute (2) Sepsis Status: Acute Qualifiers: Sepsis type: sepsis due to unspecified organism Qualified Code(s): A41.9 - Sepsis, unspecified organism (3) PRISCILLA (acute kidney injury) Status: Acute (4) Pulmonary embolism Status: Chronic Qualifiers: Pulmonary embolism type: other Chronicity: unspecified Acute cor pulmonale presence: without acute cor pulmonale Qualified Code(s): I26.99 - Other pulmonary embolism without acute cor pulmonale (5) CKD (chronic kidney disease), stage III Status: Chronic (6) Kidney transplant recipient Status: Chronic (7) Congenital nystagmus Status: Chronic (8) Mild MRDD Status: Chronic (9) DVT (deep venous thrombosis) Status: Chronic Qualifiers: DVT location: lower extremity Affected thrombotic vein of extremity: unspecified vein of extremity Chronicity: unspecified Laterality: unspecified laterality Qualified Code(s): I82.409 - Acute embolism and thrombosis of unspecified deep veins of unspecified lower extremity (10) Neurogenic bladder disorder Status: Chronic Comment: managed with cic History of Present Illness Date of Admission: 01/11/18 Chief Complaint: Dark urine, suprapubic pain, low-grade temperatures. The patient is a 52 y/o M w/ PMHx: Mild MRDD with help from his family/sister w/ Congenital Nystagmus, CKD stage III (baseline Cr 1.6, prior ESRD s/p Renal Txp), Renal Txp status on immunosuppressive therapy, Neurogenic bladder w/ self catheterization although not always complaint with q 4 hours during daytime, Hx DVT and PE on xarelto regimen who presents to the [facility] ED on 01/11/18 with history of ongoing low-grade temperatures, fatigue, weakness, more quiet than usual per sister report in addition to onset of suprapubic discomfort on day of ED presentation. Patient also noted that his urine was more dark in appearance, unclear if foul-smelling. Patient states that he has been compliant with his self-catheterization which is improved from prior. Sister is present and confirms that patient has been compliant with his catheterization regimen. He notes that patient had been seen approximately 2 weeks prior to current presentation with ENT and was treated for oral thrush, suspected from aerosol regimen which patient had been on prior for bronchitis which has resolved. He notes follow-up with ENT and pulmonary in the next month in addition to nephrology in 3 months which likely will need to be moved up. In the ED work-up included T 99.4, heart rate 114, BP 123/75, respiratory rate 17, 99% on room air, BC with WBC 7.3, hemoglobin 11, platelets 509 with left shift, BMP with chloride 108, carbon dioxide 19, BUN/Cr 25/2.13 (baseline Cr 1.6), Leukos 115, lipase 230, urinalysis concerning for urinary tract infection, CT abdomen and pelvis with evidence of marked distention of the bladder with wall thickening, mild hydronephrosis in the transplant kidney located in the right pelvis as well as marked hydroureter and hydronephrosis of the [place] ureters and kidneys increased compared to prior CT, small bowel ileus with no evidence of bowel obstruction with moderate stool in the colon. ED patient administered Rocephin, morphine, Zofran and normal saline 1 L bolus. Patient's most recently reviewed micro urine included UTI 12/07/17 with Hafnia alvei sensitive to cefepime, and sensitive to Rocephin, sensitive to Cipro, and sensitive to gent, sensitive to imipenem, sensitive to levofloxacin, sensitive to right nitrofurantoin, sensitive to Zosyn, sensitive to tobramycin as well as Enterococcus 08/20/17 with sensitive to gent, linezolid, nitrofurantoin, streptomycin and vancomycin only. Past Medical History Past Medical History (Chronic Problems): Chronic Problems (Last Reviewed 12/22/17 @ 11:28 by Siria Harp NP-[place]) Pulmonary embolism (Chronic) Pulmonary infiltrate present on computed tomography (Chronic) CKD (chronic kidney disease), stage III (Chronic) Kidney transplant recipient (Chronic) Congenital nystagmus (Chronic) Mild MRDD (Chronic) DVT (deep venous thrombosis) (Chronic) Renal transplant, status post (Chronic) Neurogenic bladder disorder (Chronic) managed with cic Medical History: Medical History (Last Reviewed 12/22/17 @ 11:28 by Siria Harp NP-C) Right-sided chest pain (Acute) R07.9 Nonproductive cough (Acute) R05 Bronchitis (Acute) J40 Pulmonary embolism (Chronic) I26.99 Chest pain (Acute) R07.9 Pulmonary infiltrate present on computed tomography (Chronic) R91.8 CKD (chronic kidney disease), stage III (Chronic) N18.3 Acute UTI (Acute) N39.0 Kidney transplant recipient (Chronic) Z94.0 Congenital nystagmus (Chronic) H55.01 Mild MRDD (Chronic) DVT (deep venous thrombosis) (Chronic) I82.409 Neurogenic bladder disorder (Chronic) N31.9 managed with cic Allergies No Known Allergies Allergy (Verified 12/22/17 11:09) Home Medications: Ambulatory Orders Medication Instructions Recorded Mycophenolate Mofetil [Cellcept] 500 mg PO 0900,209907/14/16 Amlodipine [Norvasc] 5 mg PO QHS 09/29/17 albuterol sulfate 2.5 mg/3 mL 2.5 mg INHALATION Q4H PRN #180 vial 12/15/17 (0.083 %) solution for nebulization albuterol sulfate 90 mcg/actuation 2 puff INHALATION Q4H PRN #1 ea 12/22/17 breath activated powder inhaler Lactobacillus Acidophilus 1 tablet PO BID 01/11/18 [Acidophilus] Nystatin [Nystatin] 5 ml PO 4X/DAY 01/11/18 Ranitidine [Zantac] 150 mg PO BID 01/11/18 Rivaroxaban [Xarelto] 20 mg PO DAILY 01/11/18 Sulfamethoxazole/Trimethoprim 1 tab PO DAILY 01/11/18 [Sulfamethoxazole-Tmp Ss Tablet] Tacrolimus Anhydrous [Prograf] 2 mg PO 0900,209901/11/18 Surgical History: Surgical History (Last Reviewed 12/22/17 @ 11:28 by EVIE HullC) Renal transplant, status post (Chronic) Z94.0 Surgical History: - - Right kidney transplant , dialysis access prior, Right upper extremity fistula. Psychiatric History: No pertinent psych hx, - - MRDD Lives: Alone Smoking Status: Never smoker Tobacco Use: Non-smoker Alcohol: None Drugs: None - *Family History Maternal History Items: Hypertension Paternal History Items: Diabetes Review of Systems Constitutional: Reports: Anorexia, Fever, Malaise, Weakness, Fatigue. Denies: Chills, Weight Change HEENT: Reports: Dysphasia. Denies: Head Aches, Sinus Congestion, Sinus Drainage Cardiovascular: Denies: Chest Pain, Palpitations Respiratory: Denies: Cough, Shortness of breath at rest, Sputum production Gastrointestinal: Reports: Abdominal Pain. Denies: Nausea, Vomiting Genitourinary: Reports: Hematuria, Retention. Denies: Dysuria Musculoskeletal: Denies: Joint Pain, Joint Tenderness Skin: Denies: Rash, Wounds Neurological: Denies: Numbness, Tingling, Focal weakness Psychiatric: Reports: Anxiety. Denies: Depression, Homicidal Ideations, Suicidal Ideations Hematologic/ Lymphatic: Denies: Easy Bruising, Easy Bleeding VTE Information - Inpt Only VTE Present on Admission: No VTE Mechan Device Prophylaxis: SCD's VTE Pharm Prophylaxis ordered?: No Reason prophylaxis not ordered:: Treatment Not Indicated - On xarelto Patient Problems: Active and Suspected Problems (Last Reviewed 12/22/17 @ 11:28 by JASS Hull) Sepsis (Acute) PRISCILLA (acute kidney injury) (Acute) Subjective: Patient seated upright in ED bed, very quiet which is his baseline but still less interactive than prior admissions. Objective: Physical Examination: General: awake, alert, oriented x 3, baseline mild MRDD evident, still interactive but quiet, cooperative, seated upright in the ED bed in no apparent distress. Skin: normal color, turgor, no icterus, cyanosis. HEENT: AT/NC, EOMI, PERRLA, moderately dry MM, oropharynx with no evidence of thrush, improved oral hygiene noted, no carotid bruits or JVD noted. Lungs: Managed breath sounds bilateral bases, moderate effort, no rales, ronchi or wheezing. Heart: Cardiac with regular rhythm; no gallop, rub audible. Abdomen: soft, suprapubic tenderness to palpation otherwise nontender to palpation, ND, normal BS, no HSM. Extremities: no cyanosis, clubbing, or edema. Neurological: patient awake, alert, oriented as noted; cognitive function mildly decreased from baseline, mild MRDD baseline; pupils equally reactive to light and accomodation; cranial nerves II-XII grossly normal, moving all 4 extremities, no focal deficits, strength moderately globally decreased secondary to acute presentation, stable baseline nystagmus noted. Psychiatric: affect appears flat, no acute evidence of depressive or anxiety feelings. - Physical Exam Vital Signs Temp Pulse Resp BP Pulse Ox 99.4 F H 98 16 134/85 H 99 01/11/18 15:04 01/11/18 18:38 01/11/18 18:38 01/11/18 18:38 01/11/18 15:04 Oxygen Delivery Method Room Air Weight: 171 lb Body Mass Index (BMI) 23.1 Laboratory Tests Past 24 Hrs 01/11/18 01/11/18 01/11/18 14:43 15:50 15:50 WBC 7.3 RBC 4.12 L Hgb 11.0 L Hct 35.1 L MCV 85.2 MCH 26.7 L MCHC 31.3 L RDW 14.8 H RDW Differential 46.2 H Plt Count 509 H MPV 9.5 Immature Gran % (Auto) 0.100 Neut % (Auto) 72.5 H Lymph % (Auto) 8.8 L [place] % (Auto) 16.5 H Eos % (Auto) 1.8 Baso % (Auto) 0.3 Absolute Neuts (auto) 5.3 Absolute Lymphs (auto) 0.64 L Total Counted Not Reportable Sodium 139 Potassium 4.4 Chloride 108 H Carbon Dioxide 19.0 L Anion Gap 12 BUN 25 H Creatinine 2.13 H Estim Creat Clear Calc 45.52 Est GFR (MDRD) Af Amer 42 L Est GFR (MDRD) Non-Af 35 L BUN/Creatinine Ratio 11.7 Glucose 115 H Calcium 8.6 Total Bilirubin Direct Bilirubin AST ALT Alkaline Phosphatase Total Protein Albumin Globulin Lipase Urine Color Brown Urine Clarity Turbid Urine pH 6.5 Ur Specific [place] 1.015 Urine Protein 500 H Urine Glucose (UA) Normal Urine Ketones 5 H Urine Occult Blood 250 H Urine Nitrite Positive H Urine Bilirubin Negative Urine Urobilinogen Normal Ur Leukocyte Esterase 500 H Urine RBC > 100 SEEN Urine WBC >100 SEEN Ur Squamous Epith Cells 0-5 SEEN Urine Bacteria 2+ Urine Mucus 0 SEEN 01/11/18 01/11/18 15:50 15:50 WBC RBC Hgb Hct MCV MCH MCHC RDW RDW Differential Plt Count MPV Immature Gran % (Auto) Neut % (Auto) Lymph % (Auto) [place] % (Auto) Eos % (Auto) Baso % (Auto) Absolute Neuts (auto) Absolute Lymphs (auto) Total Counted Sodium Potassium Chloride Carbon Dioxide Anion Gap BUN Creatinine Estim Creat Clear Calc Est GFR (MDRD) Af Amer Est GFR (MDRD) Non-Af BUN/Creatinine Ratio Glucose Calcium Total Bilirubin 0.40 Direct Bilirubin 0.12 AST 20 ALT 21 Alkaline Phosphatase 81 Total Protein 7.6 Albumin 3.1 L Globulin 4.5 H Lipase 230 Urine Color Urine Clarity Urine pH Ur Specific [place] Urine Protein Urine Glucose (UA) Urine Ketones Urine Occult Blood Urine Nitrite Urine Bilirubin Urine Urobilinogen Ur Leukocyte Esterase Urine RBC Urine WBC Ur Squamous Epith Cells Urine Bacteria Urine Mucus Assessment/Plan All Active Problems (Last Reviewed 12/22/17 @ 11:28 by JASS Hull) Sepsis (Acute) PRISCILLA (acute kidney injury) (Acute) Right-sided chest pain (Acute) Nonproductive cough (Acute) Bronchitis (Acute) Chest pain (Acute) Acute UTI (Acute) The patient is a 52 y/o M w/ PMHx: Mild MRDD with help from his family/sister w/ Congenital Nystagmus, CKD stage III (baseline Cr 1.6, prior ESRD s/p Renal Txp), Renal Txp status on immunosuppressive therapy, Neurogenic bladder w/ self catheterization although not always complaint with q 4 hours during daytime, Hx DVT and PE on xarelto regimen who presents to the [facility] ED on 01/11/18 with history of ongoing low-grade temperatures, fatigue, weakness, more quiet than usual per sister report in addition to onset of suprapubic discomfort on day of ED presentation. (1) Acute Sepsis secondary to Acute Complicated Urinary Tract Infection w/ Neurogenic Bladder and Self-Catheterization: Non-compliant with self catherization regimen. Ga placed in the ED. Will admit to [facility] upon ED evaluation remarkable, pending UCx, admission CBC w/ WBC 7.3 with marked L shift, LA pending, continue IVFs, monitor I/Os, initiate IV zosyn given prior sensitivities and dose vanc IV x 1 w/ transition as able pending sensitivities and speciation. Bld cx x 2 obtained in the ED. (3) Acute Kidney Injury on CKD stage III, Prior ESRD/CKD IV, status post kidney transplant: Admission BUN/Cr 25/2.13, stable, baseline Cr 1.6-1.8, continue cellcept, prograf regimen. Holding bactrim for noted treatment #1. (4) Hypertension: Continue home regimen including norvasc with hold parameters, PRN hydralazine. (5) Mild mental retardation: Stable, family supportive. (6) Hx DVT, PE: Maintain on home xarelto regimen but monitor Hgb given hematuria associated w/ acute UTI, expect to improve. (7) GERD: Protonix given renal fx. (8) Recent Oral Thrush: Appears resolved, will continue regimen to completion per ENT recommendation. (9) DVT Prophylaxis: SCDs, xarelto as noted. Code Visit Inpatient E&M: 44058 Init Hosp L3
--- NOTE | 2018-01-11 19:05 | HP.PCM_ITS ---
Problem List (1) Acute UTI Status: Acute (2) Sepsis Status: Acute Qualifiers: Sepsis type: sepsis due to unspecified organism Qualified Code(s): A41.9 - Sepsis, unspecified organism (3) PRISCILLA (acute kidney injury) Status: Acute (4) Pulmonary embolism Status: Chronic Qualifiers: Pulmonary embolism type: other Chronicity: unspecified Acute cor pulmonale presence: without acute cor pulmonale Qualified Code(s): I26.99 - Other pulmonary embolism without acute cor pulmonale (5) CKD (chronic kidney disease), stage III Status: Chronic (6) Kidney transplant recipient Status: Chronic (7) Congenital nystagmus Status: Chronic (8) Mild MRDD Status: Chronic (9) DVT (deep venous thrombosis) Status: Chronic Qualifiers: DVT location: lower extremity Affected thrombotic vein of extremity: unspecified vein of extremity Chronicity: unspecified Laterality: unspecified laterality Qualified Code(s): I82.409 - Acute embolism and thrombosis of unspecified deep veins of unspecified lower extremity (10) Neurogenic bladder disorder Status: Chronic Comment: managed with cic History of Present Illness Date of Admission: 01/11/18 Chief Complaint: Dark urine, suprapubic pain, low-grade temperatures. The patient is a 52 y/o M w/ PMHx: Mild MRDD with help from his family/sister w / Congenital Nystagmus, CKD stage III (baseline Cr 1.6, prior ESRD s/p Renal Txp ), Renal Txp status on immunosuppressive therapy, Neurogenic bladder w/ self catheterization although not always complaint with q 4 hours during daytime, Hx DVT and PE on xarelto regimen who presents to the [facility] ED on 01/11/18 with history of ongoing low-grade temperatures, fatigue, weakness, more quiet than usual per sister report in addition to onset of suprapubic discomfort on day of ED presentation. Patient also noted that his urine was more dark in appearance , unclear if foul-smelling. Patient states that he has been compliant with his self-catheterization which is improved from prior. Sister is present and confirms that patient has been compliant with his catheterization regimen. He notes that patient had been seen approximately 2 weeks prior to current presentation with ENT and was treated for oral thrush, suspected from aerosol regimen which patient had been on prior for bronchitis which has resolved. He notes follow-up with ENT and pulmonary in the next month in addition to nephrology in 3 months which likely will need to be moved up. In the ED work-up included T 99.4, heart rate 114, BP 123/75, respiratory rate 17, 99% on room air , BC with WBC 7.3, hemoglobin 11, platelets 509 with left shift, BMP with chloride 108, carbon dioxide 19, BUN/Cr 25/2.13 (baseline Cr 1.6), Leukos 115, lipase 230, urinalysis concerning for urinary tract infection, CT abdomen and pelvis with evidence of marked distention of the bladder with wall thickening, mild hydronephrosis in the transplant kidney located in the right pelvis as well as marked hydroureter and hydronephrosis of the [place] ureters and kidneys increased compared to prior CT, small bowel ileus with no evidence of bowel obstruction with moderate stool in the colon. ED patient administered Rocephin , morphine, Zofran and normal saline 1 L bolus. Patient's most recently reviewed micro urine included UTI 12/07/17 with Hafnia alvei sensitive to cefepime , and sensitive to Rocephin, sensitive to Cipro, and sensitive to gent, sensitive to imipenem, sensitive to levofloxacin, sensitive to right nitrofurantoin, sensitive to Zosyn, sensitive to tobramycin as well as Enterococcus 08/20/17 with sensitive to gent, linezolid, nitrofurantoin, streptomycin and vancomycin only. Past Medical History Past Medical History (Chronic Problems): Chronic Problems (Last Reviewed 12/22/17 @ 11:28 by Siria Harp NP-Lester) Pulmonary embolism (Chronic) Pulmonary infiltrate present on computed tomography (Chronic) CKD (chronic kidney disease), stage III (Chronic) Kidney transplant recipient (Chronic) Congenital nystagmus (Chronic) Mild MRDD (Chronic) DVT (deep venous thrombosis) (Chronic) Renal transplant, status post (Chronic) Neurogenic bladder disorder (Chronic) managed with cic Medical History: Medical History (Last Reviewed 12/22/17 @ 11:28 by Siria Harp NP-C) Right-sided chest pain (Acute) R07.9 Nonproductive cough (Acute) R05 Bronchitis (Acute) J40 Pulmonary embolism (Chronic) I26.99 Chest pain (Acute) R07.9 Pulmonary infiltrate present on computed tomography (Chronic) R91.8 CKD (chronic kidney disease), stage III (Chronic) N18.3 Acute UTI (Acute) N39.0 Kidney transplant recipient (Chronic) Z94.0 Congenital nystagmus (Chronic) H55.01 Mild MRDD (Chronic) DVT (deep venous thrombosis) (Chronic) I82.409 Neurogenic bladder disorder (Chronic) N31.9 managed with cic Allergies No Known Allergies Allergy (Verified 12/22/17 11:09) Home Medications: Ambulatory Orders Medication Instructions Recorded Mycophenolate Mofetil [Cellcept] 500 mg PO 0900,209907/14/16 Amlodipine [Norvasc] 5 mg PO QHS 09/29/17 albuterol sulfate 2.5 mg/3 mL 2.5 mg INHALATION Q4H PRN #180 vial 12/15/17 (0.083 %) solution for nebulization albuterol sulfate 90 mcg/actuation 2 puff INHALATION Q4H PRN #1 ea 12/22/17 breath activated powder inhaler Lactobacillus Acidophilus 1 tablet PO BID 01/11/18 [Acidophilus] Nystatin [Nystatin] 5 ml PO 4X/DAY 01/11/18 Ranitidine [Zantac] 150 mg PO BID 01/11/18 Rivaroxaban [Xarelto] 20 mg PO DAILY 01/11/18 Sulfamethoxazole/Trimethoprim 1 tab PO DAILY 01/11/18 [Sulfamethoxazole-Tmp Ss Tablet] Tacrolimus Anhydrous [Prograf] 2 mg PO 0900,209901/11/18 Surgical History: Surgical History (Last Reviewed 12/22/17 @ 11:28 by EVIE HullC) Renal transplant, status post (Chronic) Z94.0 Surgical History: - - Right kidney transplant , dialysis access prior, Right upper extremity fistula. Psychiatric History: No pertinent psych hx, - - MRDD Lives: Alone Smoking Status: Never smoker Tobacco Use: Non-smoker Alcohol: None Drugs: None - *Family History Maternal History Items: Hypertension Paternal History Items: Diabetes Review of Systems Constitutional: Reports: Anorexia, Fever, Malaise, Weakness, Fatigue. Denies: Chills, Weight Change HEENT: Reports: Dysphasia. Denies: Head Aches, Sinus Congestion, Sinus Drainage Cardiovascular: Denies: Chest Pain, Palpitations Respiratory: Denies: Cough, Shortness of breath at rest, Sputum production Gastrointestinal: Reports: Abdominal Pain. Denies: Nausea, Vomiting Genitourinary: Reports: Hematuria, Retention. Denies: Dysuria Musculoskeletal: Denies: Joint Pain, Joint Tenderness Skin: Denies: Rash, Wounds Neurological: Denies: Numbness, Tingling, Focal weakness Psychiatric: Reports: Anxiety. Denies: Depression, Homicidal Ideations, Suicidal Ideations Hematologic/ Lymphatic: Denies: Easy Bruising, Easy Bleeding VTE Information - Inpt Only VTE Present on Admission: No VTE Mechan Device Prophylaxis: SCD's VTE Pharm Prophylaxis ordered?: No Reason prophylaxis not ordered:: Treatment Not Indicated - On xarelto Patient Problems: Active and Suspected Problems (Last Reviewed 12/22/17 @ 11:28 by JASS Hull) Sepsis (Acute) PRISCILLA (acute kidney injury) (Acute) Subjective: Patient seated upright in ED bed, very quiet which is his baseline but still less interactive than prior admissions. Objective: Physical Examination: General: awake, alert, oriented x 3, baseline mild MRDD evident, still interactive but quiet, cooperative, seated upright in the ED bed in no apparent distress. Skin: normal color, turgor, no icterus, cyanosis. HEENT: AT/NC, EOMI, PERRLA, moderately dry MM, oropharynx with no evidence of thrush, improved oral hygiene noted, no carotid bruits or JVD noted. Lungs: Managed breath sounds bilateral bases, moderate effort, no rales, ronchi or wheezing. Heart: Cardiac with regular rhythm; no gallop, rub audible. Abdomen: soft, suprapubic tenderness to palpation otherwise nontender to palpation, ND, normal BS, no HSM. Extremities: no cyanosis, clubbing, or edema. Neurological: patient awake, alert, oriented as noted; cognitive function mildly decreased from baseline, mild MRDD baseline; pupils equally reactive to light and accomodation; cranial nerves II-XII grossly normal, moving all 4 extremities, no focal deficits, strength moderately globally decreased secondary to acute presentation, stable baseline nystagmus noted. Psychiatric: affect appears flat, no acute evidence of depressive or anxiety feelings. - Physical Exam Vital Signs Temp Pulse Resp BP Pulse Ox 99.4 F H 98 16 134/85 H 99 01/11/18 15:04 01/11/18 18:38 01/11/18 18:38 01/11/18 18:38 01/11/18 15:04 Oxygen Delivery Method Room Air Weight: 171 lb Body Mass Index (BMI) 23.1 Laboratory Tests Past 24 Hrs 01/11/18 01/11/18 01/11/18 14:43 15:50 15:50 WBC 7.3 RBC 4.12 L Hgb 11.0 L Hct 35.1 L MCV 85.2 MCH 26.7 L MCHC 31.3 L RDW 14.8 H RDW Differential 46.2 H Plt Count 509 H MPV 9.5 Immature Gran % (Auto) 0.100 Neut % (Auto) 72.5 H Lymph % (Auto) 8.8 L [place] % (Auto) 16.5 H Eos % (Auto) 1.8 Baso % (Auto) 0.3 Absolute Neuts (auto) 5.3 Absolute Lymphs (auto) 0.64 L Total Counted Not Reportable Sodium 139 Potassium 4.4 Chloride 108 H Carbon Dioxide 19.0 L Anion Gap 12 BUN 25 H Creatinine 2.13 H Estim Creat Clear Calc 45.52 Est GFR (MDRD) Af Amer 42 L Est GFR (MDRD) Non-Af 35 L BUN/Creatinine Ratio 11.7 Glucose 115 H Calcium 8.6 Total Bilirubin Direct Bilirubin AST ALT Alkaline Phosphatase Total Protein Albumin Globulin Lipase Urine Color Brown Urine Clarity Turbid Urine pH 6.5 Ur Specific [place] 1.015 Urine Protein 500 H Urine Glucose (UA) Normal Urine Ketones 5 H Urine Occult Blood 250 H Urine Nitrite Positive H Urine Bilirubin Negative Urine Urobilinogen Normal Ur Leukocyte Esterase 500 H Urine RBC > 100 SEEN Urine WBC >100 SEEN Ur Squamous Epith Cells 0-5 SEEN Urine Bacteria 2+ Urine Mucus 0 SEEN 01/11/18 01/11/18 15:50 15:50 WBC RBC Hgb Hct MCV MCH MCHC RDW RDW Differential Plt Count MPV Immature Gran % (Auto) Neut % (Auto) Lymph % (Auto) [place] % (Auto) Eos % (Auto) Baso % (Auto) Absolute Neuts (auto) Absolute Lymphs (auto) Total Counted Sodium Potassium Chloride Carbon Dioxide Anion Gap BUN Creatinine Estim Creat Clear Calc Est GFR (MDRD) Af Amer Est GFR (MDRD) Non-Af BUN/Creatinine Ratio Glucose Calcium Total Bilirubin 0.40 Direct Bilirubin 0.12 AST 20 ALT 21 Alkaline Phosphatase 81 Total Protein 7.6 Albumin 3.1 L Globulin 4.5 H Lipase 230 Urine Color Urine Clarity Urine pH Ur Specific [place] Urine Protein Urine Glucose (UA) Urine Ketones Urine Occult Blood Urine Nitrite Urine Bilirubin Urine Urobilinogen Ur Leukocyte Esterase Urine RBC Urine WBC Ur Squamous Epith Cells Urine Bacteria Urine Mucus Assessment/Plan All Active Problems (Last Reviewed 12/22/17 @ 11:28 by JASS Hull) Sepsis (Acute) PRISCILLA (acute kidney injury) (Acute) Right-sided chest pain (Acute) Nonproductive cough (Acute) Bronchitis (Acute) Chest pain (Acute) Acute UTI (Acute) The patient is a 52 y/o M w/ PMHx: Mild MRDD with help from his family/sister w / Congenital Nystagmus, CKD stage III (baseline Cr 1.6, prior ESRD s/p Renal Txp ), Renal Txp status on immunosuppressive therapy, Neurogenic bladder w/ self catheterization although not always complaint with q 4 hours during daytime, Hx DVT and PE on xarelto regimen who presents to the [facility] ED on 01/11/18 with history of ongoing low-grade temperatures, fatigue, weakness, more quiet than usual per sister report in addition to onset of suprapubic discomfort on day of ED presentation. (1) Acute Sepsis secondary to Acute Complicated Urinary Tract Infection w/ Neurogenic Bladder and Self-Catheterization: Non-compliant with self catherization regimen. Ga placed in the ED. Will admit to [facility] upon ED evaluation remarkable, pending UCx, admission CBC w/ WBC 7.3 with marked L shift , LA pending, continue IVFs, monitor I/Os, initiate IV zosyn given prior sensitivities and dose vanc IV x 1 w/ transition as able pending sensitivities and speciation. Bld cx x 2 obtained in the ED. (3) Acute Kidney Injury on CKD stage III, Prior ESRD/CKD IV, status post kidney transplant: Admission BUN/Cr 25/2.13, stable, baseline Cr 1.6-1.8, continue cellcept, prograf regimen. Holding bactrim for noted treatment #1. (4) Hypertension: Continue home regimen including norvasc with hold parameters, PRN hydralazine. (5) Mild mental retardation: Stable, family supportive. (6) Hx DVT, PE: Maintain on home xarelto regimen but monitor Hgb given hematuria associated w/ acute UTI, expect to improve. (7) GERD: Protonix given renal fx. (8) Recent Oral Thrush: Appears resolved, will continue regimen to completion per ENT recommendation. (9) DVT Prophylaxis: SCDs, xarelto as noted. Code Visit Inpatient E&M: 30488 Init Hosp L3
[2018-01-11] MEDS: Ceftriaxone 1 GM/50 ML BAG IV (19:08)
[2018-01-11 19:55] LABS: Lactic Acid 0.7 mmol/L (0.4-2.0)
[2018-01-11 19:58] VITALS: BMI 22.8
[2018-01-11 20:01] VITALS: BP 115/71; PULSE 100; RESP 16; TEMP 37.4; O2SAT 96
[2018-01-11 20:05] VITALS: BMI 22.8
[2018-01-11] MEDS: 0.9% Normal Saline 1,000 ML 125 ML IV (20:12)
[2018-01-11] MEDS: Acetaminophen 325 MG Tablet 650 MG PO (20:24)
[2018-01-11 20:45] VITALS: RESP 18
[2018-01-11] MEDS: Mycophenolate Mofetil 250 MG Capsule 500 MG PO (20:59)
[2018-01-11] MEDS: Piperacil/Tazobactam 3.375 GM/50 ML ML IV (20:59)
[2018-01-11] MEDS: Tacrolimus Anhydrous 1 MG Capsule 2 MG PO (21:00)
[2018-01-11] MEDS: amLODIPine 5 MG Tablet PO (21:00)
[2018-01-11] MEDS: NYSTATIN 500,000 UNIT/5 ML UDC 500000 UNIT PO (21:00)
[2018-01-11] MEDS: Pantoprazole Sodium 20 MG Tablet PO (21:00)
[2018-01-12 02:36] VITALS: BP 101/62; PULSE 92; RESP 16; TEMP 37.4; O2SAT 96
[2018-01-12] MEDS: 0.9% Normal Saline 1,000 ML 125 ML IV ×3 (04:20→21:21)
[2018-01-12] MEDS: Piperacil/Tazobactam 3.375 GM/50 ML ML IV ×3 (06:06→21:20)
[2018-01-12 06:35] LABS: Absolute Lymphocyte Count 0.64 X10^3/ul (0.83-4.51); Absolute Neutrophil Count 4.4 X10^3/uL (2.0-7.7); Basophil# 0.04 X10^3/uL; Basophil% 0.6 % (0-1); Eosinophil# 0.23 X10^3/uL; Eosinophils% 3.6 % (0-5); Hematocrit 30.8 % (40-54); Hemoglobin 9.7 g/dl (13.0-16.5); Lymphocyte # 0.64 X10^3/ul (4.0); Lymphocyte % 10.1 % (19-41); Mean Corp Hgb Conc 31.5 g/gl (32-36); Mean Corpuscular Hgb 27.1 pg (27.0-32.0); Monocyte# 0.98 X10^3/uL; Monocyte% 15.5 % (0-10); Neutrophil # 4.43 X10^3/uL (2.7-7.7); Platelet Count 423 K/mm3 (150-450); RBC Distribution Width CV 14.9 % (11.6-14.6); RBC Distribution Width SD 44.7 fl (35.1-43.9); Red Blood Count 3.58 M/mm3 (4.6-6.2); White Blood Count 6.3 K/mm3 (4.4-11.0)
[2018-01-12 06:40] LABS: POSITIVE COUNT NO; POSITIVE DIFFERENTIAL NO; POSITIVE MORPHOLOGY NO
[2018-01-12 06:45] LABS: Anion Gap 9 (5-15); BUN 21 mg/dL (7-18); BUN/Creat Ratio 12.5 RATIO (10-20); Calcium,Total 7.4 mg/dL (8.5-10.1); Chloride 113 mmol/L (98-107); Creatinine, Serum 1.68 mg/dL (0.70-1.30); EST Glomerular Filtration Rate 46 mL/min (>60); Est Glom Filt Rate - Afr Amer 56 mL/min (>60); Glucose 96 mg/dL (74-106); Potassium 4.3 mmol/L (3.5-5.1); Sodium Level 143 mmol/L (136-145)
[2018-01-12 08:38] VITALS: BP 106/65; PULSE 90; PULSE 98; RESP 16; TEMP 36.9; O2SAT 100
[2018-01-12] MEDS: Mycophenolate Mofetil 250 MG Capsule 500 MG PO ×2 (08:47→21:21)
[2018-01-12] MEDS: NYSTATIN 500,000 UNIT/5 ML UDC 500000 UNIT PO ×4 (08:47→21:22)
[2018-01-12] MEDS: Pantoprazole Sodium 20 MG Tablet PO ×2 (08:48→21:22)
[2018-01-12] MEDS: Tacrolimus Anhydrous 1 MG Capsule 2 MG PO ×2 (08:48→21:21)
--- NOTE | 2018-01-12 10:12 | CASEMGMT ---
Social Work Note STUART received call from AHMET Noe with [facility] to give report on pt. Per Chandrakant pt has developmental disability. Pt's main contact is his sister Evaristo as this is pt's HCPOA. JAMA NoeW also states that pt has an older brother and xienxa-ec-rio (named Katya) that are helpful as well. Per Chandrakant pt has a mother named Cierra that is involved but shouldn't be main contact for pt's care at this time as pt's mother is declining health alcantara. AHMET Noe states that pt has been hiding his systems from his sister Evaristo. JAMA NoeW states that pt has had [facility] in the past but is not current with them. STUART updated JASMEET Shanks of this. JASMEET PINTO/STUART to continue to follow along to assist with discharge planning. Alicia ASHTON, SCRAP HOIST OPERATOR
--- NOTE | 2018-01-12 10:43 | PCM.PN.HOSP ---
Patient Problems: Active and Suspected Problems (Last Reviewed 12/22/17 @ 11:28 by JASS Hull) Sepsis (Acute) PRISCILLA (acute kidney injury) (Acute) Subjective: Patient seen and examined. He was admitted yesterday in August managed for sepsis due to UTI. Patient complained of suprapubic pain and also wanted the catheter to be taken out. He denied any fever or chills though he said he had had some prior to him being admitted. He denied any cough or chest pain, any shortness of breath or diarrhea or vomiting. 12 point review of systems was otherwise negative. Labs and vitals reviewed. Vitals/I&O's: Vital Signs Temp Pulse Resp BP Pulse Ox 98.4 F 98 16 106/65 100 01/12/18 08:38 01/12/18 08:38 01/12/18 08:38 01/12/18 08:38 01/12/18 08:38 Oxygen Delivery Method Room Air Weight: 167 lb 15.876 oz Body Mass Index (BMI) 22.8 Intake and Output for Last 24 Hours 01/10/18 01/11/18 01/12/18 23:59 23:59 23:59 Intake Total 994 / 994 876 / 876 Output Total 1000 / 1000 675 / 675 Balance -6 / -6 201 / 201 General: Alert, Oriented x3, Cooperative, No apparent distress HEENT: Atraumatic, PERRLA, EOMI, Normocephalic Oral: Moist Mucosa Neck: Supple, No JVD, Negative Carotid Bruits Lungs: Clear to auscultation, Normal air movement, No rhonchi, No wheeze, No rales Cardiovascular: Regular rate, Regular Rhythm, Normal S1, Normal S2, No murmurs Abdomen: Bowel Sounds Present, Soft, Non-Distended, No Hepato-splenomegaly, - - Mild suprapubic tenderness. No costophrenic angle tenderness bilaterally. Extremities: No clubbing, No cyanosis, No edema, Capillary Refill Less than 3 Seconds Skin: No rashes, No breakdown Musculoskeletal: No Tenderness to Palpation of Joints or Extremities Lymphatic: No Cervical, Supraclavicular, or Inguinal Adenopathy Neurological: Cranial nerves II-XII grossly intact, Motor Exam 5/5 strength throughout Psych/Mental Status: Normal Affect, Appropriate, Alert and oriented to time, place, person, mood and affect Laboratory Results 01/12/18 05:58: WBC 6.3, RBC 3.58 L, Hgb 9.7 L, Hct 30.8 L, MCV 86.0, MCH 27.1, MCHC 31.5 L, RDW 14.9 H, RDW Differential 44.7 H, Plt Count 423, MPV 10.0, Immature Gran % (Auto) 0.200, Neut % (Auto) 70.0, Lymph % (Auto) 10.1 L, [place] % (Auto) 15.5 H, Eos % (Auto) 3.6, Baso % (Auto) 0.6, Absolute Neuts (auto) 4.4, Absolute Lymphs (auto) 0.64 L, Total Counted Not Reportable 01/12/18 05:58: Sodium 143, Potassium 4.3, Chloride 113 H, Carbon Dioxide 21.0, Anion Gap 9, BUN 21 H, Creatinine 1.68 H, Estim Creat Clear Calc 56.70, Est GFR (MDRD) Af Amer 56 L, Est GFR (MDRD) Non-Af 46 L, BUN/Creatinine Ratio 12.5, Glucose 96, Calcium 7.4 L Diagnostic Data Abdomen/Pelvis CT 01/11/18 15:54 IMPRESSION: There is marked distention of the urinary bladder with wall thickening, possible cystitis. There is mild hydronephrosis in the transplant kidney located in the right pelvis. There is marked hydroureter and hydronephrosis of the tribal ureters and kidneys, increased compared to the prior CT. There is small bowel ileus. There is no evidence of bowel obstruction. There is moderate stool in the colon. There is no ascites, free air or significant lymphadenopathy. Electronically Signed: Vania Miramontes MD at 16:50 EDT Tel Direct: [phone], Service support , Current Medications Acetaminophen (Tylenol) 650 mg PO Q6H PRN PRN PRN Reason: Mild Pain (scale 0-3)/T>100.7 Last Admin: 01/11/18 20:24 Dose: 650 mg Al Hydroxide/Mg Hydroxide (Mylanta Ii) 30 ml PO Q6H PRN PRN PRN Reason: Gastric burning Amlodipine Besylate (Norvasc) 5 mg PO QHS [facility] Last Admin: 01/11/18 21:00 Dose: 5 mg Hydralazine HCl (Apresoline Iv) 10 mg IV Q4H PRN PRN PRN Reason: SBP > 160 Sodium Chloride () 1,000 mls @ 125 mls/hr IV .Q8H [facility] Last Admin: 01/12/18 04:20 Dose: 125 mls/hr Piperacillin Sod/Tazobactam Sod (Zosyn) 3.375 gm in 50 mls @ 12.5 mls/hr IV Q8 [facility] Last Admin: 01/12/18 06:06 Dose: 12.5 mls/hr Lactobacillus Acidophilus (Acidophilus) 1 tablet PO BID [facility] Last Admin: 01/12/18 08:48 Dose: 1 tablet Magnesium Hydroxide (Milk Of Magnesia) 30 ml PO DAILY PRN PRN PRN Reason: Constipation Morphine Sulfate () 2 - 4 mg IV Q3H PRN PRN PRN Reason: Severe Pain (pain scale 6-10) Morphine Sulfate () 1 - 2 mg IV Q4H PRN PRN PRN Reason: Moderate Pain (pain scale 4-5) Mycophenolate Mofetil (Cellcept) 500 mg PO BID [facility] Last Admin: 01/12/18 08:47 Dose: 500 mg Nystatin (Nystatin) 500,000 unit PO 4X/DAY [facility] Last Admin: 01/12/18 08:47 Dose: 500,000 unit Ondansetron HCl (Zofran) 4 mg IV Q8H PRN PRN PRN Reason: NAUSEA Oxycodone HCl (Oxyir) 5 mg PO Q4H PRN PRN PRN Reason: Moderate Pain (pain scale 4-5) Pantoprazole Sodium (Protonix) 20 mg PO BID [facility] Last Admin: 01/12/18 08:48 Dose: 20 mg Promethazine HCl (Phenergan) 12.5 mg IV Q6H PRN PRN PRN Reason: NAUSEA/VOMITING Rivaroxaban (Xarelto) 20 mg PO DAILY@1700 [facility] Sodium Chloride () 5 - 30 ml IV UD PRN PRN Reason: SALINE FLUSH Tacrolimus (Prograf) 2 mg PO BID [facility] Last Admin: 01/12/18 08:48 Dose: 2 mg Medical Necessity - Tobacco Use Smoking Status: Never smoker Tobacco Use: Non-smoker Assessment/Plan All Active Problems (Last Reviewed 12/22/17 @ 11:28 by Siria Harp NP-C) Sepsis (Acute) PRISCILLA (acute kidney injury) (Acute) Right-sided chest pain (Acute) Nonproductive cough (Acute) Bronchitis (Acute) Chest pain (Acute) Acute UTI (Acute) 1. Sepsis due to UTI had a mild fever overnight, with temperature peaking at 99.4F; temp down this morning SIRS criteria is 0/4; has no leucocytosis UA was positive for UTI, urine and blood cultures pending continue IV zosyn, and de-escalate per microbiology results surya self catheterises at home due to neurogenic bladder, but has not bee very compliant with it 2. PRISCILLA on CKD III- likely post renal, due to hydronephrosis and hydroureter Creatinine on admission was 2.13 with his baseline being around 1.6-1.8. He is status post kidney transplant. He is on CellCept and Tacrolimus CT of the abdomen showed distended urinary bladder with wall thickening along the bladder and normal prostate size. Market dilatation of collecting systems in both kidneys with marked dilatation of both tribal ureters and transplanted kidney in the right pelvis and mild dilatation of the collecting system of the transplanted kidney. urine catheter in place and draining; urine output 1L yesterday, and 675mls so far today will get urology consult. 3. Hypertension: controlled. On amlodipine 5mg daily. 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 Per admitting history: Patient had hematuria but this has not been noted since he was admitted and hemoglobin has remained stable. Will monitor. 5. Mild MRDD: Stable. 6.GERD: on protonix. 7.DVT prophylaxis; on xarelto Code status: full code This note was generated with Appirioation software. It may contain incorrect words, spelling, and punctuation that were not noted in checking the note before signing. Code Visit Inpatient E&M: 86571 [facility] Hosp L3
--- NOTE | 2018-01-12 10:55 | PN_ITS ---
Patient Problems: Active and Suspected Problems (Last Reviewed 12/22/17 @ 11:28 by JASS Hull) Sepsis (Acute) PRISCILLA (acute kidney injury) (Acute) Subjective: Patient seen and examined. He was admitted yesterday in August managed for sepsis due to UTI. Patient complained of suprapubic pain and also wanted the catheter to be taken out. He denied any fever or chills though he said he had had some prior to him being admitted. He denied any cough or chest pain, any shortness of breath or diarrhea or vomiting. 12 point review of systems was otherwise negative. Labs and vitals reviewed. Vitals/I&O's: Vital Signs Temp Pulse Resp BP Pulse Ox 98.4 F 98 16 106/65 100 01/12/18 08:38 01/12/18 08:38 01/12/18 08:38 01/12/18 08:38 01/12/18 08:38 Oxygen Delivery Method Room Air Weight: 167 lb 15.876 oz Body Mass Index (BMI) 22.8 Intake and Output for Last 24 Hours 01/10/18 01/11/18 01/12/18 23:59 23:59 23:59 Intake Total 994 / 994 876 / 876 Output Total 1000 / 1000 675 / 675 Balance -6 / -6 201 / 201 General: Alert, Oriented x3, Cooperative, No apparent distress HEENT: Atraumatic, PERRLA, EOMI, Normocephalic Oral: Moist Mucosa Neck: Supple, No JVD, Negative Carotid Bruits Lungs: Clear to auscultation, Normal air movement, No rhonchi, No wheeze, No rales Cardiovascular: Regular rate, Regular Rhythm, Normal S1, Normal S2, No murmurs Abdomen: Bowel Sounds Present, Soft, Non-Distended, No Hepato-splenomegaly, - - Mild suprapubic tenderness. No costophrenic angle tenderness bilaterally. Extremities: No clubbing, No cyanosis, No edema, Capillary Refill Less than 3 Seconds Skin: No rashes, No breakdown Musculoskeletal: No Tenderness to Palpation of Joints or Extremities Lymphatic: No Cervical, Supraclavicular, or Inguinal Adenopathy Neurological: Cranial nerves II-XII grossly intact, Motor Exam 5/5 strength throughout Psych/Mental Status: Normal Affect, Appropriate, Alert and oriented to time, place, person, mood and affect Laboratory Results 01/12/18 05:58: WBC 6.3, RBC 3.58 L, Hgb 9.7 L, Hct 30.8 L, MCV 86.0, MCH 27.1, MCHC 31.5 L, RDW 14.9 H, RDW Differential 44.7 H, Plt Count 423, MPV 10.0, Immature Gran % (Auto) 0.200, Neut % (Auto) 70.0, Lymph % (Auto) 10.1 L, [place] % (Auto) 15.5 H, Eos % (Auto) 3.6, Baso % (Auto) 0.6, Absolute Neuts (auto) 4.4, Absolute Lymphs (auto) 0.64 L, Total Counted Not Reportable 01/12/18 05:58: Sodium 143, Potassium 4.3, Chloride 113 H, Carbon Dioxide 21.0, Anion Gap 9, BUN 21 H, Creatinine 1.68 H, Estim Creat Clear Calc 56.70, Est GFR (MDRD) Af Amer 56 L, Est GFR (MDRD) Non-Af 46 L, BUN/Creatinine Ratio 12.5, Glucose 96, Calcium 7.4 L Diagnostic Data Abdomen/Pelvis CT 01/11/18 15:54 IMPRESSION: There is marked distention of the urinary bladder with wall thickening, possible cystitis. There is mild hydronephrosis in the transplant kidney located in the right pelvis. There is marked hydroureter and hydronephrosis of the [place] ureters and kidneys, increased compared to the prior CT. There is small bowel ileus. There is no evidence of bowel obstruction. There is moderate stool in the colon. There is no ascites, free air or significant lymphadenopathy. Electronically Signed: Vania Miramontes MD at 16:50 EDT Tel Direct: [phone], Service support , Current Medications Acetaminophen (Tylenol) 650 mg PO Q6H PRN PRN PRN Reason: Mild Pain (scale 0-3)/T>100.7 Last Admin: 01/11/18 20:24 Dose: 650 mg Al Hydroxide/Mg Hydroxide (Mylanta Ii) 30 ml PO Q6H PRN PRN PRN Reason: Gastric burning Amlodipine Besylate (Norvasc) 5 mg PO QHS [facility] Last Admin: 01/11/18 21:00 Dose: 5 mg Hydralazine HCl (Apresoline Iv) 10 mg IV Q4H PRN PRN PRN Reason: SBP > 160 Sodium Chloride () 1,000 mls @ 125 mls/hr IV .Q8H [facility] Last Admin: 01/12/18 04:20 Dose: 125 mls/hr Piperacillin Sod/Tazobactam Sod (Zosyn) 3.375 gm in 50 mls @ 12.5 mls/hr IV Q8 [facility] Last Admin: 01/12/18 06:06 Dose: 12.5 mls/hr Lactobacillus Acidophilus (Acidophilus) 1 tablet PO BID [facility] Last Admin: 01/12/18 08:48 Dose: 1 tablet Magnesium Hydroxide (Milk Of Magnesia) 30 ml PO DAILY PRN PRN PRN Reason: Constipation Morphine Sulfate () 2 - 4 mg IV Q3H PRN PRN PRN Reason: Severe Pain (pain scale 6-10) Morphine Sulfate () 1 - 2 mg IV Q4H PRN PRN PRN Reason: Moderate Pain (pain scale 4-5) Mycophenolate Mofetil (Cellcept) 500 mg PO BID [facility] Last Admin: 01/12/18 08:47 Dose: 500 mg Nystatin (Nystatin) 500,000 unit PO 4X/DAY [facility] Last Admin: 01/12/18 08:47 Dose: 500,000 unit Ondansetron HCl (Zofran) 4 mg IV Q8H PRN PRN PRN Reason: NAUSEA Oxycodone HCl (Oxyir) 5 mg PO Q4H PRN PRN PRN Reason: Moderate Pain (pain scale 4-5) Pantoprazole Sodium (Protonix) 20 mg PO BID [facility] Last Admin: 01/12/18 08:48 Dose: 20 mg Promethazine HCl (Phenergan) 12.5 mg IV Q6H PRN PRN PRN Reason: NAUSEA/VOMITING Rivaroxaban (Xarelto) 20 mg PO DAILY@1700 [facility] Sodium Chloride () 5 - 30 ml IV UD PRN PRN Reason: SALINE FLUSH Tacrolimus (Prograf) 2 mg PO BID [facility] Last Admin: 01/12/18 08:48 Dose: 2 mg Medical Necessity - Tobacco Use Smoking Status: Never smoker Tobacco Use: Non-smoker Assessment/Plan All Active Problems (Last Reviewed 12/22/17 @ 11:28 by Siria Harp NP-C) Sepsis (Acute) PRISCILLA (acute kidney injury) (Acute) Right-sided chest pain (Acute) Nonproductive cough (Acute) Bronchitis (Acute) Chest pain (Acute) Acute UTI (Acute) 1. Sepsis due to UTI * had a mild fever overnight, with temperature peaking at 99.4F; temp down this morning * SIRS criteria is 0/4; has no leucocytosis * UA was positive for UTI, urine and blood cultures pending * continue IV zosyn, and de-escalate per microbiology results * surya self catheterises at home due to neurogenic bladder, but has not bee very compliant with it * 2. PRISCILLA on CKD III- likely post renal, due to hydronephrosis and hydroureter * Creatinine on admission was 2.13 with his baseline being around 1.6-1.8. He is status post kidney transplant. He is on CellCept and Tacrolimus * CT of the abdomen showed distended urinary bladder with wall thickening along the bladder and normal prostate size. Market dilatation of collecting systems in both kidneys with marked dilatation of both [place] ureters and transplanted kidney in the right pelvis and mild dilatation of the collecting system of the transplanted kidney. * urine catheter in place and draining; urine output 1L yesterday, and 675mls so far today * will get urology consult. 3. Hypertension: controlled. On amlodipine 5mg daily. 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 Per admitting history: Patient had hematuria but this has not been noted since he was admitted and hemoglobin has remained stable. Will monitor. 5. Mild MRDD: Stable. 6.GERD: on protonix. 7.DVT prophylaxis; on xarelto Code status: full code This note was generated with Sustainationation software. It may contain incorrect words, spelling, and punctuation that were not noted in checking the note before signing. Code Visit Inpatient E&M: 74499 Subs Hosp L3
--- NOTE | 2018-01-12 12:00 | CASEMGMT ---
JASMEET PINTO Face to Face with patient for initial transition planning/care coordination assessment. RN BLAIR introduced self and role at [facility]. Patient lying in bed, alert and oriented, family at bedside. Patient willing to participate in assessment and is able to answer all questions appropriately. Care providers, pharmacy, and demographics verified. See link attached. Patient wishes to discharge home and agreeable to HHC with [facility]. Patient states he has no further needs or concerns at this time. Referral made to [facility] HHC. CM to follow for discharge planning needs that may arise. Disposition Plan: Patient to discharge home with [facility], family support, and follow-up plans in place Alicia ALONZO, RN, CM
--- NOTE | 2018-01-12 12:03 | NURSING ---
Dr Cline notified she was consulted, asked if he sees Dr Dennis, yes he does, she said she generally does not see male pts. requested the consulting physician to call her. Dr Reyes was texted and informed to call Dr. Cline.
[2018-01-12 15:05] VITALS: BP 116/78; PULSE 92; RESP 18; TEMP 36.7; O2SAT 97
[2018-01-12 15:09] VITALS: PULSE 100
--- NOTE | 2018-01-12 17:08 | CHAPLAIN ---
Type of Pastoral Visit _x__ Initial Visit ___ Follow-up Visit ___ On-call Visit ___ General Patient Visit ___ Spiritual Assessment ___ Family Conference ___ Bereavement ___ Rapid Response ___ Code Blue ___ Other (describe below) Pastoral Care Referral From _x__ Patient ___ Family ___ Nurse ___ Physician ___ Mortgage Loan Processor ___ Instrument Technician Helper ___ Other (describe below) Sacrament/Intervention _x__ Active listening ___ Anointing ___ Mormonism ___ Bereavement ___ Communion ___ [place] exploration ___ _x__ Life review _x__ Prayer ___ Reconciliation ___ Sacrament of Sick _x__ Supportive presence ___ Wedding ___ Other (describe below) Pastoral Comments patient has been seen during previous admissions to hospital; pt repeats some of the same stories about illness and trips to [facility]; pt says he is scared about his health; pt is welcoming of prayer and visits by chart changer
[2018-01-12] MEDS: Rivaroxaban 20 MG Tablet PO (17:25)
[2018-01-12 21:18] VITALS: BP 115/78; PULSE 90; RESP 16; TEMP 36.3; O2SAT 98
[2018-01-12] MEDS: amLODIPine 5 MG Tablet PO (21:22)
[2018-01-13 03:15] VITALS: BP 98/56; PULSE 80; RESP 16; TEMP 36.6; O2SAT 100
[2018-01-13] MEDS: 0.9% Normal Saline 1,000 ML 125 ML IV ×3 (05:39→21:19)
[2018-01-13] MEDS: Piperacil/Tazobactam 3.375 GM/50 ML ML IV ×3 (06:34→21:19)
[2018-01-13 06:53] VITALS: O2SAT 95
[2018-01-13 08:00] LABS: Absolute Neutrophil Count 3.3 X10^3/uL (2.0-7.7); Basophil# 0.03 X10^3/uL; Basophil% 0.6 % (0-1); Eosinophil# 0.23 X10^3/uL; Eosinophils% 4.8 % (0-5); Hematocrit 30.6 % (40-54); Hemoglobin 9.7 g/dl (13.0-16.5); Lymphocyte % 12.4 % (19-41); Mean Corp Hgb Conc 31.7 g/gl (32-36); Mean Corpuscular Hgb 27.3 pg (27.0-32.0); Mean Corpuscular Volume 86.2 fL (80-94); Mean Platelet Vol. 9.4 fl (6.2-12.0); Monocyte# 0.62 X10^3/uL; Monocyte% 12.8 % (0-10); Neutrophil # 3.34 X10^3/uL (2.7-7.7); Platelet Count 438 K/mm3 (150-450); RBC Distribution Width CV 14.9 % (11.6-14.6); RBC Distribution Width SD 45.3 fl (35.1-43.9); Red Blood Count 3.55 M/mm3 (4.6-6.2); White Blood Count 4.8 K/mm3 (4.4-11.0)
[2018-01-13 08:02] LABS: Differential Indicated SCAN CRITERIA MET; POSITIVE COUNT NO; POSITIVE DIFFERENTIAL YES; POSITIVE MORPHOLOGY NO
[2018-01-13 08:21] LABS: Anion Gap 10 (5-15); BUN 15 mg/dL (7-18); BUN/Creat Ratio 9.9 RATIO (10-20); Calcium,Total 7.7 mg/dL (8.5-10.1); Chloride 116 mmol/L (98-107); Creatinine, Serum 1.51 mg/dL (0.70-1.30); EST Glomerular Filtration Rate 52 mL/min (>60); Est Glom Filt Rate - Afr Amer 63 mL/min (>60); Estimated Creatinine Clearance 63.08 ml/min; Glucose 87 mg/dL (74-106); Potassium 4.3 mmol/L (3.5-5.1); Sodium Level 145 mmol/L (136-145)
[2018-01-13 08:47] VITALS: BP 118/69; PULSE 105; RESP 18; TEMP 36.9; O2SAT 98
[2018-01-13] MEDS: Acetaminophen 325 MG Tablet 650 MG PO (08:51)
[2018-01-13] MEDS: Pantoprazole Sodium 20 MG Tablet PO ×2 (08:52→21:19)
[2018-01-13] MEDS: Mycophenolate Mofetil 250 MG Capsule 500 MG PO ×2 (08:53→21:18)
[2018-01-13] MEDS: Tacrolimus Anhydrous 1 MG Capsule 2 MG PO ×2 (08:53→21:18)
[2018-01-13] MEDS: NYSTATIN 500,000 UNIT/5 ML UDC 500000 UNIT PO ×4 (08:53→21:17)
[2018-01-13 09:01] VITALS: PULSE 110
--- NOTE | 2018-01-13 11:38 | PCM.PN.HOSP ---
Patient Problems: Active and Suspected Problems (Last Reviewed 12/22/17 @ 11:28 by JASS Hull) Sepsis (Acute) PRISCILLA (acute kidney injury) (Acute) Subjective: Patient seen and examined. He still complains of suprapubic pain. His mother, sister and sister lower by his bedside. Patient denies any fever or chills, any cough or chest pain, any shortness of breath, any diarrhea vomiting. Family had a lot of questions about patient's condition. Patient apparently lives alone and does the straight cath by himself. Family states he states he does not 4 times a day but he cannot confirm whether he actually does it on her as none of them have seen it been done. He has had repeated urinary tract infections on account of the atonic bladder and family wishes to get him home health care so that he will have a nurse to help him with a straight cath. Vitals/I&O's: Vital Signs Temp Pulse Resp BP Pulse Ox 98.4 F 110 H 18 118/69 98 01/13/18 08:47 01/13/18 09:01 01/13/18 08:47 01/13/18 08:47 01/13/18 08:47 Oxygen Delivery Method Room Air Weight: 167 lb 15.876 oz Body Mass Index (BMI) 22.8 Intake and Output for Last 24 Hours 01/11/18 01/12/18 01/13/18 23:59 23:59 23:59 Intake Total 994 / 994 3042 / 3042 1636 / 1636 Output Total 1000 / 1000 1945 / 1945 1250 / 1250 Balance -6 / -6 1097 / 1097 386 / 386 General: Alert, Oriented x3, Cooperative, No apparent distress HEENT: Atraumatic, PERRLA, EOMI, Normocephalic Oral: Moist Mucosa Neck: Supple, No JVD, Negative Carotid Bruits Lungs: Clear to auscultation, Normal air movement, No rhonchi, No wheeze, No rales Cardiovascular: Regular rate, Regular Rhythm, Normal S1, Normal S2, No murmurs Abdomen: Bowel Sounds Present, Soft, Non-Distended, No Hepato-splenomegaly, - - mild suprapubic tenderness, with no guarding or rebound tenderness Extremities: No clubbing, No cyanosis, No edema, Capillary Refill Less than 3 Seconds Skin: No rashes, No breakdown Musculoskeletal: No Tenderness to Palpation of Joints or Extremities Lymphatic: No Cervical, Supraclavicular, or Inguinal Adenopathy Neurological: Cranial nerves II-XII grossly intact, Motor Exam 5/5 strength throughout Psych/Mental Status: Normal Affect, Appropriate, Alert and oriented to time, place, person, mood and affect Laboratory Results 01/13/18 07:50: WBC 4.8, RBC 3.55 L, Hgb 9.7 L, Hct 30.6 L, MCV 86.2, MCH 27.3, MCHC 31.7 L, RDW 14.9 H, RDW Differential 45.3 H, Plt Count 438, MPV 9.4, Immature Gran % (Auto) 0.400, Neut % (Auto) 69.0, Lymph % (Auto) 12.4 L, [place] % (Auto) 12.8 H, Eos % (Auto) 4.8, Baso % (Auto) 0.6, Absolute Neuts (auto) 3.3, Absolute Lymphs (auto) 0.60 L, Total Counted Not Reportable, Differential Comment COMMENT 01/13/18 07:50: Sodium 145, Potassium 4.3, Chloride 116 H, Carbon Dioxide 19.0 L, Anion Gap 10, BUN 15, Creatinine 1.51 H, Estim Creat Clear Calc 63.08, Est GFR (MDRD) Af Amer 63, Est GFR (MDRD) Non-Af 52 L, BUN/Creatinine Ratio 9.9 L, Glucose 87, Calcium 7.7 L Diagnostic Data Abdomen/Pelvis CT 01/11/18 15:54 IMPRESSION: There is marked distention of the urinary bladder with wall thickening, possible cystitis. There is mild hydronephrosis in the transplant kidney located in the right pelvis. There is marked hydroureter and hydronephrosis of the [place] ureters and kidneys, increased compared to the prior CT. There is small bowel ileus. There is no evidence of bowel obstruction. There is moderate stool in the colon. There is no ascites, free air or significant lymphadenopathy. Electronically Signed: Vania Miramontes MD at 16:50 EDT Tel Direct: [phone], Service support , Current Medications Acetaminophen (Tylenol) 650 mg PO Q6H PRN PRN PRN Reason: Mild Pain (scale 0-3)/T>100.7 Last Admin: 01/13/18 08:51 Dose: 650 mg Al Hydroxide/Mg Hydroxide (Mylanta Ii) 30 ml PO Q6H PRN PRN PRN Reason: Gastric burning Amlodipine Besylate (Norvasc) 5 mg PO QHS [facility] Last Admin: 01/12/18 21:22 Dose: 5 mg Hydralazine HCl (Apresoline Iv) 10 mg IV Q4H PRN PRN PRN Reason: SBP > 160 Sodium Chloride () 1,000 mls @ 125 mls/hr IV .Q8H [facility] Last Admin: 01/13/18 05:39 Dose: 125 mls/hr Piperacillin Sod/Tazobactam Sod (Zosyn) 3.375 gm in 50 mls @ 12.5 mls/hr IV Q8 [facility] Last Admin: 01/13/18 06:34 Dose: 12.5 mls/hr Lactobacillus Acidophilus (Acidophilus) 1 tablet PO BID [facility] Last Admin: 01/13/18 08:52 Dose: 1 tablet Magnesium Hydroxide (Milk Of Magnesia) 30 ml PO DAILY PRN PRN PRN Reason: Constipation Morphine Sulfate () 2 - 4 mg IV Q3H PRN PRN PRN Reason: Severe Pain (pain scale 6-10) Morphine Sulfate () 1 - 2 mg IV Q4H PRN PRN PRN Reason: Moderate Pain (pain scale 4-5) Mycophenolate Mofetil (Cellcept) 500 mg PO BID [facility] Last Admin: 01/13/18 08:53 Dose: 500 mg Nystatin (Nystatin) 500,000 unit PO 4X/DAY [facility] Last Admin: 01/13/18 08:53 Dose: 500,000 unit Ondansetron HCl (Zofran) 4 mg IV Q8H PRN PRN PRN Reason: NAUSEA Oxycodone HCl (Oxyir) 5 mg PO Q4H PRN PRN PRN Reason: Moderate Pain (pain scale 4-5) Pantoprazole Sodium (Protonix) 20 mg PO BID [facility] Last Admin: 01/13/18 08:52 Dose: 20 mg Promethazine HCl (Phenergan) 12.5 mg IV Q6H PRN PRN PRN Reason: NAUSEA/VOMITING Rivaroxaban (Xarelto) 20 mg PO DAILY@1700 [facility] Last Admin: 01/12/18 17:25 Dose: 20 mg Sodium Chloride () 5 - 30 ml IV UD PRN PRN Reason: SALINE FLUSH Tacrolimus (Prograf) 2 mg PO BID [facility] Last Admin: 01/13/18 08:53 Dose: 2 mg Medical Necessity - Tobacco Use Smoking Status: Never smoker Tobacco Use: Non-smoker Assessment/Plan All Active Problems (Last Reviewed 12/22/17 @ 11:28 by Siria Harp, GUYLINE OPERATOR-C) Sepsis (Acute) PRISCILLA (acute kidney injury) (Acute) Right-sided chest pain (Acute) Nonproductive cough (Acute) Bronchitis (Acute) Chest pain (Acute) Acute UTI (Acute) 1. Sepsis due to UTI resolving. Patient has remained afebrile over the last 24 hours. SIRS criteria- 0/4 Has no leukocytosis. Culture and blood cultures are still pending. Continue IV Zosyn for 1 more day. 2. AK I on CKD 3, likely post renal, due to hydronephrosis and hydroureter Cr trended down to 2.[address] Dr Cuevas not covering Dr Dennis's patients; however, advised that patient should have a Ga catheter in situ to continue drainage. Patient counselled about importance of self catheterisation; family cannot confirm whether he actually does it or not, as he lives alone. He has had repeated UTIs, so it is very likely that he is not fully compliant with self catheterisation. continue IVF administration. Will benefit from home health care to help with his care. will need follow up with Dr Dennis continue CellCept nad tacrolimus for immunosuppresion with kidney transplant. 3. Hypertension: controlled. On PO amlodipine 5mg daily. 4. 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 Hematuria which was reported at time of admission hasnt recurred. will monitor 5. Mild MRDD: Stable. 6.GERD: on protonix. 7.DVT prophylaxis; on xarelto Code status: full code This note was generated with BOOK A TIGERation software. It may contain incorrect words, spelling, and punctuation that were not noted in checking the note before signing. Code Visit Inpatient E&M: 72907 Subs Hosp L2
--- NOTE | 2018-01-13 11:44 | PN_ITS ---
Patient Problems: Active and Suspected Problems (Last Reviewed 12/22/17 @ 11:28 by JASS Hull) Sepsis (Acute) PRISCILLA (acute kidney injury) (Acute) Subjective: Patient seen and examined. He still complains of suprapubic pain. His mother, sister and sister lower by his bedside. Patient denies any fever or chills, any cough or chest pain, any shortness of breath, any diarrhea vomiting. Family had a lot of questions about patient's condition. Patient apparently lives alone and does the straight cath by himself. Family states he states he does not 4 times a day but he cannot confirm whether he actually does it on her as none of them have seen it been done. He has had repeated urinary tract infections on account of the atonic bladder and family wishes to get him home health care so that he will have a nurse to help him with a straight cath. Vitals/I&O's: Vital Signs Temp Pulse Resp BP Pulse Ox 98.4 F 110 H 18 118/69 98 01/13/18 08:47 01/13/18 09:01 01/13/18 08:47 01/13/18 08:47 01/13/18 08:47 Oxygen Delivery Method Room Air Weight: 167 lb 15.876 oz Body Mass Index (BMI) 22.8 Intake and Output for Last 24 Hours 01/11/18 01/12/18 01/13/18 23:59 23:59 23:59 Intake Total 994 / 994 3042 / 3042 1636 / 1636 Output Total 1000 / 1000 1945 / 1945 1250 / 1250 Balance -6 / -6 1097 / 1097 386 / 386 General: Alert, Oriented x3, Cooperative, No apparent distress HEENT: Atraumatic, PERRLA, EOMI, Normocephalic Oral: Moist Mucosa Neck: Supple, No JVD, Negative Carotid Bruits Lungs: Clear to auscultation, Normal air movement, No rhonchi, No wheeze, No rales Cardiovascular: Regular rate, Regular Rhythm, Normal S1, Normal S2, No murmurs Abdomen: Bowel Sounds Present, Soft, Non-Distended, No Hepato-splenomegaly, - - mild suprapubic tenderness, with no guarding or rebound tenderness Extremities: No clubbing, No cyanosis, No edema, Capillary Refill Less than 3 Seconds Skin: No rashes, No breakdown Musculoskeletal: No Tenderness to Palpation of Joints or Extremities Lymphatic: No Cervical, Supraclavicular, or Inguinal Adenopathy Neurological: Cranial nerves II-XII grossly intact, Motor Exam 5/5 strength throughout Psych/Mental Status: Normal Affect, Appropriate, Alert and oriented to time, place, person, mood and affect Laboratory Results 01/13/18 07:50: WBC 4.8, RBC 3.55 L, Hgb 9.7 L, Hct 30.6 L, MCV 86.2, MCH 27.3, MCHC 31.7 L, RDW 14.9 H, RDW Differential 45.3 H, Plt Count 438, MPV 9.4, Immature Gran % (Auto) 0.400, Neut % (Auto) 69.0, Lymph % (Auto) 12.4 L, [place] % (Auto) 12.8 H, Eos % (Auto) 4.8, Baso % (Auto) 0.6, Absolute Neuts (auto) 3.3, Absolute Lymphs (auto) 0.60 L, Total Counted Not Reportable, Differential Comment COMMENT 01/13/18 07:50: Sodium 145, Potassium 4.3, Chloride 116 H, Carbon Dioxide 19.0 L , Anion Gap 10, BUN 15, Creatinine 1.51 H, Estim Creat Clear Calc 63.08, Est GFR (MDRD) Af Amer 63, Est GFR (MDRD) Non-Af 52 L, BUN/Creatinine Ratio 9.9 L, Glucose 87, Calcium 7.7 L Diagnostic Data Abdomen/Pelvis CT 01/11/18 15:54 IMPRESSION: There is marked distention of the urinary bladder with wall thickening, possible cystitis. There is mild hydronephrosis in the transplant kidney located in the right pelvis. There is marked hydroureter and hydronephrosis of the [place] ureters and kidneys, increased compared to the prior CT. There is small bowel ileus. There is no evidence of bowel obstruction. There is moderate stool in the colon. There is no ascites, free air or significant lymphadenopathy. Electronically Signed: Vania Miramontes MD at 16:50 EDT Tel Direct: [phone], Service support , Current Medications Acetaminophen (Tylenol) 650 mg PO Q6H PRN PRN PRN Reason: Mild Pain (scale 0-3)/T>100.7 Last Admin: 01/13/18 08:51 Dose: 650 mg Al Hydroxide/Mg Hydroxide (Mylanta Ii) 30 ml PO Q6H PRN PRN PRN Reason: Gastric burning Amlodipine Besylate (Norvasc) 5 mg PO QHS [facility] Last Admin: 01/12/18 21:22 Dose: 5 mg Hydralazine HCl (Apresoline Iv) 10 mg IV Q4H PRN PRN PRN Reason: SBP > 160 Sodium Chloride () 1,000 mls @ 125 mls/hr IV .Q8H [facility] Last Admin: 01/13/18 05:39 Dose: 125 mls/hr Piperacillin Sod/Tazobactam Sod (Zosyn) 3.375 gm in 50 mls @ 12.5 mls/hr IV Q8 [facility] Last Admin: 01/13/18 06:34 Dose: 12.5 mls/hr Lactobacillus Acidophilus (Acidophilus) 1 tablet PO BID [facility] Last Admin: 01/13/18 08:52 Dose: 1 tablet Magnesium Hydroxide (Milk Of Magnesia) 30 ml PO DAILY PRN PRN PRN Reason: Constipation Morphine Sulfate () 2 - 4 mg IV Q3H PRN PRN PRN Reason: Severe Pain (pain scale 6-10) Morphine Sulfate () 1 - 2 mg IV Q4H PRN PRN PRN Reason: Moderate Pain (pain scale 4-5) Mycophenolate Mofetil (Cellcept) 500 mg PO BID [facility] Last Admin: 01/13/18 08:53 Dose: 500 mg Nystatin (Nystatin) 500,000 unit PO 4X/DAY [facility] Last Admin: 01/13/18 08:53 Dose: 500,000 unit Ondansetron HCl (Zofran) 4 mg IV Q8H PRN PRN PRN Reason: NAUSEA Oxycodone HCl (Oxyir) 5 mg PO Q4H PRN PRN PRN Reason: Moderate Pain (pain scale 4-5) Pantoprazole Sodium (Protonix) 20 mg PO BID [facility] Last Admin: 01/13/18 08:52 Dose: 20 mg Promethazine HCl (Phenergan) 12.5 mg IV Q6H PRN PRN PRN Reason: NAUSEA/VOMITING Rivaroxaban (Xarelto) 20 mg PO DAILY@1700 [facility] Last Admin: 01/12/18 17:25 Dose: 20 mg Sodium Chloride () 5 - 30 ml IV UD PRN PRN Reason: SALINE FLUSH Tacrolimus (Prograf) 2 mg PO BID [facility] Last Admin: 01/13/18 08:53 Dose: 2 mg Medical Necessity - Tobacco Use Smoking Status: Never smoker Tobacco Use: Non-smoker Assessment/Plan All Active Problems (Last Reviewed 12/22/17 @ 11:28 by Siria Harp, SUE-C) Sepsis (Acute) PRISCILLA (acute kidney injury) (Acute) Right-sided chest pain (Acute) Nonproductive cough (Acute) Bronchitis (Acute) Chest pain (Acute) Acute UTI (Acute) 1. Sepsis due to UTI * resolving. Patient has remained afebrile over the last 24 hours. * SIRS criteria- 0/4 * Has no leukocytosis. * Culture and blood cultures are still pending. * Continue IV Zosyn for 1 more day. * 2. [place] I on CKD 3, likely post renal, due to hydronephrosis and hydroureter * Cr trended down to 2.13 * Discussed with urology. Dr Cuevas not covering Dr Dennis's patients; however , advised that patient should have a Ga catheter in situ to continue drainage. * Patient counselled about importance of self catheterisation; family cannot confirm whether he actually does it or not, as he lives alone. He has had repeated UTIs, so it is very likely that he is not fully compliant with self catheterisation. * continue IVF administration. Will benefit from home health care to help with his care. * will need follow up with Dr Dennis * continue CellCept nad tacrolimus for immunosuppresion with kidney transplant. * 3. Hypertension: controlled. On PO amlodipine 5mg daily. 4. 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 Hematuria which was reported at time of admission hasnt recurred. will monitor 5. Mild MRDD: Stable. 6.GERD: on protonix. 7.DVT prophylaxis; on xarelto Code status: full code This note was generated with Enomalyation software. It may contain incorrect words, spelling, and punctuation that were not noted in checking the note before signing. Code Visit Inpatient E&M: 19343 Subs Hosp L2
[2018-01-13 13:32] VITALS: BP 108/73; PULSE 95; RESP 18; TEMP 37.2; O2SAT 100
[2018-01-13] MEDS: Rivaroxaban 20 MG Tablet PO (17:30)
[2018-01-13 20:00] VITALS: BP 123/81; PULSE 89; RESP 18; TEMP 37.1; O2SAT 99
[2018-01-13] MEDS: amLODIPine 5 MG Tablet PO (21:18)
[2018-01-14 02:50] VITALS: BP 108/69; PULSE 73; RESP 16; TEMP 36.8; O2SAT 97
[2018-01-14] MEDS: 0.9% Normal Saline 1,000 ML 125 ML IV ×3 (05:26→22:40)
[2018-01-14] MEDS: Piperacil/Tazobactam 3.375 GM/50 ML ML IV (05:27)
[2018-01-14] MEDS: 0.9% NaCl Peripheral Flush Adult/Peds IV (05:28)
[2018-01-14 06:23] LABS: Absolute Lymphocyte Count 0.71 X10^3/ul (0.83-4.51); Absolute Neutrophil Count 3.6 X10^3/uL (2.0-7.7); Basophil# 0.04 X10^3/uL; Basophil% 0.8 % (0-1); Eosinophil# 0.22 X10^3/uL; Eosinophils% 4.3 % (0-5); Hematocrit 31.4 % (40-54); Hemoglobin 9.7 g/dl (13.0-16.5); Lymphocyte # 0.71 X10^3/ul (4.0); Lymphocyte % 13.9 % (19-41); Mean Corp Hgb Conc 30.9 g/gl (32-36); Mean Corpuscular Hgb 26.6 pg (27.0-32.0); Mean Corpuscular Volume 86.3 fL (80-94); Mean Platelet Vol. 9.3 fl (6.2-12.0); Monocyte# 0.47 X10^3/uL; Monocyte% 9.2 % (0-10); Neutrophil # 3.62 X10^3/uL (2.7-7.7); Neutrophil % 71.2 % (47-70); Platelet Count 433 K/mm3 (150-450); RBC Distribution Width CV 14.9 % (11.6-14.6); RBC Distribution Width SD 45.3 fl (35.1-43.9); Red Blood Count 3.64 M/mm3 (4.6-6.2); White Blood Count 5.1 K/mm3 (4.4-11.0)
[2018-01-14 06:28] LABS: POSITIVE COUNT NO; POSITIVE DIFFERENTIAL NO; POSITIVE MORPHOLOGY NO
[2018-01-14 06:46] LABS: Anion Gap 9 (5-15); BUN 15 mg/dL (7-18); BUN/Creat Ratio 9.9 RATIO (10-20); Calcium,Total 7.7 mg/dL (8.5-10.1); Chloride 116 mmol/L (98-107); Creatinine, Serum 1.51 mg/dL (0.70-1.30); EST Glomerular Filtration Rate 52 mL/min (>60); Est Glom Filt Rate - Afr Amer 63 mL/min (>60); Estimated Creatinine Clearance 63.08 ml/min; Glucose 86 mg/dL (74-106); Potassium 4.2 mmol/L (3.5-5.1); Sodium Level 144 mmol/L (136-145)
[2018-01-14 07:35] VITALS: O2SAT 97
[2018-01-14 09:32] VITALS: BP 117/74; PULSE 98; RESP 16; TEMP 37.6; O2SAT 98
[2018-01-14] MEDS: Mycophenolate Mofetil 250 MG Capsule 500 MG PO ×2 (09:34→21:26)
[2018-01-14] MEDS: Tacrolimus Anhydrous 1 MG Capsule 2 MG PO ×2 (09:35→21:24)
[2018-01-14] MEDS: NYSTATIN 500,000 UNIT/5 ML UDC 500000 UNIT PO ×4 (09:35→21:23)
[2018-01-14] MEDS: Pantoprazole Sodium 20 MG Tablet PO ×2 (09:35→21:25)
--- NOTE | 2018-01-14 10:32 | PCM.PN.HOSP ---
Patient Problems: Active and Suspected Problems (Last Reviewed 12/22/17 @ 11:28 by JASS Hull) Sepsis (Acute) PRISCILLA (acute kidney injury) (Acute) Subjective: Patient seen and examined. He complains of diarrhea overnight abdominal pain. He denies any fever chills, cough or chest pain, shortness of breath or vomiting. 12 point review of systems otherwise negative. He does have a history of C. difficile. Labs and vitals reviewed. Discussed with case coordinator. Family had meeting with PCP and want him to go to to a group MRDD home or SNF due to his inability to care for himself at home. tactical air control party manager has now started process of finding him a facility to go to. Vitals/I&O's: Vital Signs Temp Pulse Resp BP Pulse Ox 99.7 F H 98 16 117/74 98 01/14/18 09:32 01/14/18 09:32 01/14/18 09:32 01/14/18 09:32 01/14/18 09:32 Oxygen Delivery Method Room Air Weight: 167 lb 15.876 oz Body Mass Index (BMI) 22.8 Intake and Output for Last 24 Hours 01/12/18 01/13/18 01/14/18 23:59 23:59 23:59 Intake Total 3042 / 3042 3844 / 3844 1914 / 1914 Output Total 1945 / 1945 2229 / 2229 1200 / 1200 Balance 1097 / 1097 1615 / 1615 714 / 714 General: Alert, Oriented x3, Cooperative, No apparent distress HEENT: Atraumatic, PERRLA, EOMI, Normocephalic Oral: Moist Mucosa Neck: Supple, No JVD, Negative Carotid Bruits Lungs: Clear to auscultation, Normal air movement, No rhonchi, No wheeze, No rales Cardiovascular: Regular rate, Regular Rhythm, Normal S1, Normal S2, No murmurs Abdomen: Bowel Sounds Present, Soft, Non-Distended, No Hepato-splenomegaly, - - mild suprapubic tenderness, no guarding or rebound tenderness Extremities: No edema, Capillary Refill Less than 3 Seconds Skin: No rashes, No breakdown Musculoskeletal: No Tenderness to Palpation of Joints or Extremities Lymphatic: No Cervical, Supraclavicular, or Inguinal Adenopathy Neurological: Cranial nerves II-XII grossly intact Psych/Mental Status: Normal Affect, Appropriate, Alert and oriented to time, place, person, mood and affect Microbiology Past 72 Hours 01/12/18 11:35 Urine Catheter - Ga Urine Culture - Final Culture exhibits no growth. Laboratory Results 01/14/18 06:10: WBC 5.1, RBC 3.64 L, Hgb 9.7 L, Hct 31.4 L, MCV 86.3, MCH 26.6 L, MCHC 30.9 L, RDW 14.9 H, RDW Differential 45.3 H, Plt Count 433, MPV 9.3, Immature Gran % (Auto) 0.600, Neut % (Auto) 71.2 H, Lymph % (Auto) 13.9 L, [place] % (Auto) 9.2, Eos % (Auto) 4.3, Baso % (Auto) 0.8, Absolute Neuts (auto) 3.6, Absolute Lymphs (auto) 0.71 L, Total Counted Not Reportable 01/14/18 06:10: Sodium 144, Potassium 4.2, Chloride 116 H, Carbon Dioxide 19.0 L, Anion Gap 9, BUN 15, Creatinine 1.51 H, Estim Creat Clear Calc 63.08, Est GFR (MDRD) Af Amer 63, Est GFR (MDRD) Non-Af 52 L, BUN/Creatinine Ratio 9.9 L, Glucose 86, Calcium 7.7 L Current Medications Acetaminophen (Tylenol) 650 mg PO Q6H PRN PRN PRN Reason: Mild Pain (scale 0-3)/T>100.7 Last Admin: 01/13/18 08:51 Dose: 650 mg Al Hydroxide/Mg Hydroxide (Mylanta Ii) 30 ml PO Q6H PRN PRN PRN Reason: Gastric burning Amlodipine Besylate (Norvasc) 5 mg PO QHS [facility] Last Admin: 01/13/18 21:18 Dose: 5 mg Hydralazine HCl (Apresoline Iv) 10 mg IV Q4H PRN PRN PRN Reason: SBP > 160 Sodium Chloride () 1,000 mls @ 125 mls/hr IV .Q8H [facility] Last Admin: 01/14/18 05:26 Dose: 125 mls/hr Lactobacillus Acidophilus (Acidophilus) 1 tablet PO BID [facility] Last Admin: 01/14/18 09:34 Dose: 1 tablet Magnesium Hydroxide (Milk Of Magnesia) 30 ml PO DAILY PRN PRN PRN Reason: Constipation Morphine Sulfate () 2 - 4 mg IV Q3H PRN PRN PRN Reason: Severe Pain (pain scale 6-10) Morphine Sulfate () 1 - 2 mg IV Q4H PRN PRN PRN Reason: Moderate Pain (pain scale 4-5) Mycophenolate Mofetil (Cellcept) 500 mg PO BID [facility] Last Admin: 01/14/18 09:34 Dose: 500 mg Nystatin (Nystatin) 500,000 unit PO 4X/DAY [facility] Last Admin: 01/14/18 09:35 Dose: 500,000 unit Ondansetron HCl (Zofran) 4 mg IV Q8H PRN PRN PRN Reason: NAUSEA Oxycodone HCl (Oxyir) 5 mg PO Q4H PRN PRN PRN Reason: Moderate Pain (pain scale 4-5) Pantoprazole Sodium (Protonix) 20 mg PO BID [facility] Last Admin: 01/14/18 09:35 Dose: 20 mg Promethazine HCl (Phenergan) 12.5 mg IV Q6H PRN PRN PRN Reason: NAUSEA/VOMITING Rivaroxaban (Xarelto) 20 mg PO DAILY@1700 [facility] Last Admin: 01/13/18 17:30 Dose: 20 mg Sodium Chloride () 5 - 30 ml IV UD PRN PRN Reason: SALINE FLUSH Last Admin: 01/14/18 05:28 Dose: 20 ml Tacrolimus (Prograf) 2 mg PO BID [facility] Last Admin: 01/14/18 09:35 Dose: 2 mg Medical Necessity - Tobacco Use Smoking Status: Never smoker Tobacco Use: Non-smoker Assessment/Plan All Active Problems (Last Reviewed 12/22/17 @ 11:28 by Siria Harp NP-C) Sepsis (Acute) PRISCILLA (acute kidney injury) (Acute) Right-sided chest pain (Acute) Nonproductive cough (Acute) Bronchitis (Acute) Chest pain (Acute) Acute UTI (Acute) 1. Sepsis due to UTI resolving. Patient has remained afebrile over the last 48 hours. SIRS criteria- 0/4 Has no leukocytosis. urine culture showed no growth. blood culture is pending. has had 3 days of IV zosyn. will stop today and resume prophylactic bactrim he takes to prevent UTI 2. New onset diarrhea States he had 3 episodes of diarrhea overnight. Will check C. difficile. 3. AK I on CKD 3, likely post renal, due to hydronephrosis and hydroureter Cr trended down to 1.51 Ga catheter in situ on Cellcept and tacrolimus for immunosuppression due to kidney transplant to follow up wt Dr Dennis on discharge since he is going to be discharged to [facility] vs SNF, will dc Ga catheter upon discharge, so he can have the straight cath done in the facility 4x a day to follow up [facility] Dr Dennis on outpatient basis. 3. Hypertension: controlled. On PO amlodipine 5mg daily. 4. 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 5. Mild MRDD: Stable. 6.GERD: on protonix. 7.DVT prophylaxis; on xarelto Code status: full code Disposition: patient ok to dc today. however, family now want him to go to [facility] or SNF. tactical air control party manager now finding a facility for him to go to. This note was generated with [employer] dictation software. It may contain incorrect words, spelling, and punctuation that were not noted in checking the note before signing. Code Visit Inpatient E&M: 58938 Subs Hosp L2
[2018-01-14 11:51] VITALS: BP 109/65; PULSE 101; RESP 18; TEMP 36.9; O2SAT 98
--- NOTE | 2018-01-14 16:23 | CASEMGMT ---
Social Work Note Pt's sister Evaristo and brother requesting to speak to this worker. SW met with pt's sister and brother. Pt's sister and brother informed this worker that they met with Dr. Bella yesterday and someone from Dr. Bella office should be calling this SW. RN BLAIR Crockett updated this worker that she received phone call from Dr. Bella who feels pt may benefit from Senior Care, Assisted Living, or SNF placement at discharge as pt has been unable to care for himself at home. STUART spoke with Evaristo and pt's brother about this. Per Evaristo and pt's brother they are looking into Senior Care placements for pt. STUART explained that there's a good chance pt won't get into a shelter straight from [facility] and pt may need short term placement at SNF before going to shelter. Evaristo is agreeable to referral being made to TCU. STUART spoke with Cait in TCU who states that she will have a bed on Wednesday and can accept pt. Cait states that she would like the family to know though that pt can come to TCU but once pt is able to discharge from TCU pt will either need to go home if a shelter isn't set up yet or can discharge to the shelter if a placement is set up. STUART placed a call to pt's sister Evaristo and updated her on this. Evaristo states that if shelter isn't set up once pt discharges from TCU she will have family arrange care for pt until shelter can be set up. STUART updated Cait of this. Pt is able to discharge to TCU Wednesday. Green sheet on chart. Plan: Discharge to TCU Wednesday Alicia Avendaño AUTO PAINTER HELPER, REDUCING SYSTEM OPERATOR
[2018-01-14 17:45] VITALS: BP 128/78; PULSE 87; RESP 18; TEMP 37.2; O2SAT 94
[2018-01-14] MEDS: Rivaroxaban 20 MG Tablet PO (18:45)
[2018-01-14] MEDS: amLODIPine 5 MG Tablet PO (21:24)
[2018-01-14 21:44] VITALS: BP 119/70; PULSE 84; RESP 18; TEMP 37.2; O2SAT 98
[2018-01-14] MEDS: Acetaminophen 325 MG Tablet 650 MG PO (23:37)
[2018-01-15 03:05] VITALS: BP 114/69; PULSE 84; RESP 18; TEMP 37.1; O2SAT 98
[2018-01-15] MEDS: 0.9% Normal Saline 1,000 ML 125 ML IV (06:49)
--- NOTE | 2018-01-15 07:07 | PCM.PN.HOSP ---
Patient Problems: Active and Suspected Problems (Last Reviewed 12/22/17 @ 11:28 by JASS Hull) Sepsis (Acute) PRISCILLA (acute kidney injury) (Acute) Subjective: Patient with no acute events overnight per self and per nursing report except did have onset of loose stools upon antibiotic initiation with a negative C. difficile assay overnight. Patient does state that he still does have some abdominal cramping with loose stool but otherwise no acute complaints. Patient amenable to loperamide given negative C. difficile assay. Also reviewed plan for discontinuation of Harman catheter and resumption of home catheterization regimen to which patient is amenable. Plan for transition to TCU in the a.m. for ongoing care as concern for patient's inability to care for himself. Patient denies fevers, chills, nausea, emesis, chest pain or dyspnea. Objective: Physical Examination: General: awake, alert, oriented x 3, baseline mild MRDD evident, cooperative, seated upright in the bed in no apparent distress, more interactive. Skin: normal color, turgor, no icterus, cyanosis. HEENT: AT/NC, EOMI, PERRLA, improved less dry MM. Lungs: Mildly decreased breath sounds bilateral bases, moderate effort, no rales, ronchi or wheezing. Heart: Regular rate with regular rhythm; no gallop, rub audible. Abdomen: soft, still suprapubic tenderness to palpation otherwise NTTP, ND, mildly hyperactive BS. Extremities: no cyanosis, clubbing, or edema. Neurological: patient awake, alert, oriented as noted; cognitive function mildly decreased from baseline, mild MRDD baseline; pupils equally reactive to light and accomodation; cranial nerves II-XII grossly normal, moving all 4 extremities, no focal deficits, strength improved, remains mildly to moderately globally decreased secondary to acute presentation, stable baseline nystagmus noted. Psychiatric: affect appears flat, no acute evidence of depressive or anxiety feelings. Vitals/I&O's: Vital Signs Temp Pulse Resp BP Pulse Ox 98.7 F 84 18 114/69 98 01/15/18 03:05 01/15/18 03:05 01/15/18 03:05 01/15/18 03:05 01/15/18 03:05 Oxygen Delivery Method Room Air Weight: 167 lb 15.876 oz Body Mass Index (BMI) 22.8 Intake and Output for Last 24 Hours 01/13/18 01/14/18 01/15/18 23:59 23:59 23:59 Intake Total 3844 / 3844 4097 / 4097 844 / 844 Output Total 2229 / 2229 4650 / 4650 850 / 850 Balance 1615 / 1615 -553 / -553 -6 / -6 Microbiology Past 72 Hours 01/14/18 12:05 Stool C. difficile DNA Amplification - Final 01/12/18 11:14 Blood Culture (Wb) - Left Hand Blood Culture - Preliminary No growth in 48 hours. 01/12/18 11:10 Blood Culture (Wb) - Left Forearm Blood Culture - Preliminary No growth in 48 hours. 01/12/18 11:35 Urine Catheter - Harman Urine Culture - Final Culture exhibits no growth. Current Medications Acetaminophen (Tylenol) 650 mg PO Q6H PRN PRN PRN Reason: Mild Pain (scale 0-3)/T>100.7 Last Admin: 01/14/18 23:37 Dose: 650 mg Al Hydroxide/Mg Hydroxide (Mylanta Ii) 30 ml PO Q6H PRN PRN PRN Reason: Gastric burning Amlodipine Besylate (Norvasc) 5 mg PO QHS [facility] Last Admin: 01/14/18 21:24 Dose: 5 mg Hydralazine HCl (Apresoline Iv) 10 mg IV Q4H PRN PRN PRN Reason: SBP > 160 Sodium Chloride () 1,000 mls @ 125 mls/hr IV .Q8H [facility] Last Admin: 01/15/18 06:49 Dose: 125 mls/hr Lactobacillus Acidophilus (Acidophilus) 1 tablet PO BID [facility] Last Admin: 01/14/18 21:24 Dose: 1 tablet Magnesium Hydroxide (Milk Of Magnesia) 30 ml PO DAILY PRN PRN PRN Reason: Constipation Morphine Sulfate () 2 - 4 mg IV Q3H PRN PRN PRN Reason: Severe Pain (pain scale 6-10) Morphine Sulfate () 1 - 2 mg IV Q4H PRN PRN PRN Reason: Moderate Pain (pain scale 4-5) Mycophenolate Mofetil (Cellcept) 500 mg PO BID [facility] Last Admin: 01/14/18 21:26 Dose: 500 mg Nystatin (Nystatin) 500,000 unit PO 4X/DAY [facility] Last Admin: 01/14/18 21:23 Dose: 500,000 unit Ondansetron HCl (Zofran) 4 mg IV Q8H PRN PRN PRN Reason: NAUSEA Oxycodone HCl (Oxyir) 5 mg PO Q4H PRN PRN PRN Reason: Moderate Pain (pain scale 4-5) Pantoprazole Sodium (Protonix) 20 mg PO BID [facility] Last Admin: 01/14/18 21:25 Dose: 20 mg Promethazine HCl (Phenergan) 12.5 mg IV Q6H PRN PRN PRN Reason: NAUSEA/VOMITING Rivaroxaban (Xarelto) 20 mg PO DAILY@1700 [facility] Last Admin: 01/14/18 18:45 Dose: 20 mg Sodium Chloride () 5 - 30 ml IV UD PRN PRN Reason: SALINE FLUSH Last Admin: 01/14/18 05:28 Dose: 20 ml Tacrolimus (Prograf) 2 mg PO BID [facility] Last Admin: 01/14/18 21:24 Dose: 2 mg Medical Necessity - Tobacco Use Smoking Status: Never smoker Tobacco Use: Non-smoker Assessment/Plan All Active Problems (Last Reviewed 12/22/17 @ 11:28 by Siria Harp NP-C) Sepsis (Acute) PRISCILLA (acute kidney injury) (Acute) Right-sided chest pain (Acute) Nonproductive cough (Acute) Bronchitis (Acute) Chest pain (Acute) Acute UTI (Acute) The patient is a 52 y/o M w/ PMHx: Mild MRDD with help from his family/sister w/ Congenital Nystagmus, CKD stage III (baseline Cr 1.6, prior ESRD s/p Renal Txp), Renal Txp status on immunosuppressive therapy, Neurogenic bladder w/ self catheterization although not always complaint with q 4 hours during daytime, Hx DVT and PE on xarelto regimen who presents to the [facility] ED on 01/11/18 with history of ongoing low-grade temperatures, fatigue, weakness, more quiet than usual per sister report in addition to onset of suprapubic discomfort on day of ED presentation. (1) Acute Sepsis secondary to Suspected Acute Complicated Urinary Tract Infection w/ Neurogenic Bladder and Self-Catheterization: Non-compliant with self catherization regimen. Harman placed in the ED. Admitted to [facility] upon ED evaluation remarkable, UCx however without organisms, admission CBC w/ WBC 7.3 with marked L shift, LA 0.7, treated w/ IVFs, monitor I/Os, initiated IV zosyn given prior sensitivities and dose vanc IV x 1 x 3 days with transition following to home oral prophylactic bactrim regimen. Planned follow-up with Dr. Dennis at discharge given patient noted CT abdomen and pelvis with evidence of marked distention of the bladder with wall thickening, mild hydronephrosis in the transplant kidney located in the right pelvis as well as marked hydroureter and hydronephrosis of the [place] ureters and kidneys increased compared to prior CT, small bowel ileus with no evidence of bowel obstruction with moderate stool in the colon per recommendation of Dr. Cuevas, current business system consultant Urologist. Amenable to d/c harman catheter and resumption of home self catheterization regimen. Bld cx x 2 obtained in the ED NGTD. PT, OT, CM Consultation w/ planned transition to TCU 01/16/18 AM. (3) Acute Kidney Injury on CKD stage III, Prior ESRD/CKD IV, status post kidney transplant: Admission BUN/Cr 25/2.13, baseline Cr 1.6-1.8, continue cellcept, prograf regimen. Held bactrim transiently as noted w/ zosyn usage x 3 days, now transitioned back, 01/14/18 BUN/Cr 15/1.51-->01/15/18 BUN/Cr 13/1.26, returned to baseline. CT abdomen and pelvis with evidence of marked distention of the bladder with wall thickening, mild hydronephrosis in the transplant kidney located in the right pelvis as well as marked hydroureter and hydronephrosis of the [place] ureters and kidneys increased compared to prior CT. Will need to follow-up with Dr. Dennis upon discharge to follow these changes. (4) Diarrhea, Suspect secondary to Abx Therapy: C-diff negative, does have history, suspect likely secondary to abx therapy. PRN loperamide (5) Hypertension: Continue home regimen including norvasc with hold parameters, PRN hydralazine. (6) Mild mental retardation: Stable, family supportive. Given ongoing difficulties in caring for himself family meeting with CM/SW with planned facility MRDD care home or SNF placement. (7) Hx DVT, PE: Maintain on home xarelto. (8) GERD: Protonix given renal fx. (9) Recent Oral Thrush: Appears resolved, continued regimen to completion per ENT recommendation. (10) DVT Prophylaxis: SCDs, xarelto. (11) Code Status: Full Code. Code Visit Inpatient E&M: 35755 Subs Hosp L2
--- NOTE | 2018-01-15 07:15 | PN_ITS ---
Patient Problems: Active and Suspected Problems (Last Reviewed 12/22/17 @ 11:28 by JASS Hull) Sepsis (Acute) PRISCILLA (acute kidney injury) (Acute) Subjective: Patient with no acute events overnight per self and per nursing report except did have onset of loose stools upon antibiotic initiation with a negative C. difficile assay overnight. Patient does state that he still does have some abdominal cramping with loose stool but otherwise no acute complaints. Patient amenable to loperamide given negative C. difficile assay. Also reviewed plan for discontinuation of Harman catheter and resumption of home catheterization regimen to which patient is amenable. Plan for transition to TCU in the a.m. for ongoing care as concern for patient's inability to care for himself. Patient denies fevers, chills, nausea, emesis, chest pain or dyspnea. Objective: Physical Examination: General: awake, alert, oriented x 3, baseline mild MRDD evident, cooperative, seated upright in the bed in no apparent distress, more interactive. Skin: normal color, turgor, no icterus, cyanosis. HEENT: AT/NC, EOMI, PERRLA, improved less dry MM. Lungs: Mildly decreased breath sounds bilateral bases, moderate effort, no rales , ronchi or wheezing. Heart: Regular rate with regular rhythm; no gallop, rub audible. Abdomen: soft, still suprapubic tenderness to palpation otherwise NTTP, ND, mildly hyperactive BS. Extremities: no cyanosis, clubbing, or edema. Neurological: patient awake, alert, oriented as noted; cognitive function mildly decreased from baseline, mild MRDD baseline; pupils equally reactive to light and accomodation; cranial nerves II-XII grossly normal, moving all 4 extremities, no focal deficits, strength improved, remains mildly to moderately globally decreased secondary to acute presentation, stable baseline nystagmus noted. Psychiatric: affect appears flat, no acute evidence of depressive or anxiety feelings. Vitals/I&O's: Vital Signs Temp Pulse Resp BP Pulse Ox 98.7 F 84 18 114/69 98 01/15/18 03:05 01/15/18 03:05 01/15/18 03:05 01/15/18 03:05 01/15/18 03:05 Oxygen Delivery Method Room Air Weight: 167 lb 15.876 oz Body Mass Index (BMI) 22.8 Intake and Output for Last 24 Hours 01/13/18 01/14/18 01/15/18 23:59 23:59 23:59 Intake Total 3844 / 3844 4097 / 4097 844 / 844 Output Total 2229 / 2229 4650 / 4650 850 / 850 Balance 1615 / 1615 -553 / -553 -6 / -6 Microbiology Past 72 Hours 01/14/18 12:05 Stool C. difficile DNA Amplification - Final 01/12/18 11:14 Blood Culture (Wb) - Left Hand Blood Culture - Preliminary No growth in 48 hours. 01/12/18 11:10 Blood Culture (Wb) - Left Forearm Blood Culture - Preliminary No growth in 48 hours. 01/12/18 11:35 Urine Catheter - Harman Urine Culture - Final Culture exhibits no growth. Current Medications Acetaminophen (Tylenol) 650 mg PO Q6H PRN PRN PRN Reason: Mild Pain (scale 0-3)/T>100.7 Last Admin: 01/14/18 23:37 Dose: 650 mg Al Hydroxide/Mg Hydroxide (Mylanta Ii) 30 ml PO Q6H PRN PRN PRN Reason: Gastric burning Amlodipine Besylate (Norvasc) 5 mg PO QHS [facility] Last Admin: 01/14/18 21:24 Dose: 5 mg Hydralazine HCl (Apresoline Iv) 10 mg IV Q4H PRN PRN PRN Reason: SBP > 160 Sodium Chloride () 1,000 mls @ 125 mls/hr IV .Q8H [facility] Last Admin: 01/15/18 06:49 Dose: 125 mls/hr Lactobacillus Acidophilus (Acidophilus) 1 tablet PO BID [facility] Last Admin: 01/14/18 21:24 Dose: 1 tablet Magnesium Hydroxide (Milk Of Magnesia) 30 ml PO DAILY PRN PRN PRN Reason: Constipation Morphine Sulfate () 2 - 4 mg IV Q3H PRN PRN PRN Reason: Severe Pain (pain scale 6-10) Morphine Sulfate () 1 - 2 mg IV Q4H PRN PRN PRN Reason: Moderate Pain (pain scale 4-5) Mycophenolate Mofetil (Cellcept) 500 mg PO BID [facility] Last Admin: 01/14/18 21:26 Dose: 500 mg Nystatin (Nystatin) 500,000 unit PO 4X/DAY [facility] Last Admin: 01/14/18 21:23 Dose: 500,000 unit Ondansetron HCl (Zofran) 4 mg IV Q8H PRN PRN PRN Reason: NAUSEA Oxycodone HCl (Oxyir) 5 mg PO Q4H PRN PRN PRN Reason: Moderate Pain (pain scale 4-5) Pantoprazole Sodium (Protonix) 20 mg PO BID [facility] Last Admin: 01/14/18 21:25 Dose: 20 mg Promethazine HCl (Phenergan) 12.5 mg IV Q6H PRN PRN PRN Reason: NAUSEA/VOMITING Rivaroxaban (Xarelto) 20 mg PO DAILY@1700 [facility] Last Admin: 01/14/18 18:45 Dose: 20 mg Sodium Chloride () 5 - 30 ml IV UD PRN PRN Reason: SALINE FLUSH Last Admin: 01/14/18 05:28 Dose: 20 ml Tacrolimus (Prograf) 2 mg PO BID [facility] Last Admin: 01/14/18 21:24 Dose: 2 mg Medical Necessity - Tobacco Use Smoking Status: Never smoker Tobacco Use: Non-smoker Assessment/Plan All Active Problems (Last Reviewed 12/22/17 @ 11:28 by Siria Harp NP-C) Sepsis (Acute) PRISCILAL (acute kidney injury) (Acute) Right-sided chest pain (Acute) Nonproductive cough (Acute) Bronchitis (Acute) Chest pain (Acute) Acute UTI (Acute) The patient is a 52 y/o M w/ PMHx: Mild MRDD with help from his family/sister w / Congenital Nystagmus, CKD stage III (baseline Cr 1.6, prior ESRD s/p Renal Txp ), Renal Txp status on immunosuppressive therapy, Neurogenic bladder w/ self catheterization although not always complaint with q 4 hours during daytime, Hx DVT and PE on xarelto regimen who presents to the [facility] ED on 01/11/18 with history of ongoing low-grade temperatures, fatigue, weakness, more quiet than usual per sister report in addition to onset of suprapubic discomfort on day of ED presentation. (1) Acute Sepsis secondary to Suspected Acute Complicated Urinary Tract Infection w/ Neurogenic Bladder and Self-Catheterization: Non-compliant with self catherization regimen. Harman placed in the ED. Admitted to [facility] upon ED evaluation remarkable, UCx however without organisms, admission CBC w/ WBC 7.3 with marked L shift, LA 0.7, treated w/ IVFs, monitor I/Os, initiated IV zosyn given prior sensitivities and dose vanc IV x 1 x 3 days with transition following to home oral prophylactic bactrim regimen. Planned follow-up with Dr. Dennis at discharge given patient noted CT abdomen and pelvis with evidence of marked distention of the bladder with wall thickening, mild hydronephrosis in the transplant kidney located in the right pelvis as well as marked hydroureter and hydronephrosis of the [place] ureters and kidneys increased compared to prior CT, small bowel ileus with no evidence of bowel obstruction with moderate stool in the colon per recommendation of Dr. Cuevas, current electronics worker Urologist. Amenable to d/c harman catheter and resumption of home self catheterization regimen. Bld cx x 2 obtained in the ED NGTD. PT, OT, CM Consultation w/ planned transition to TCU 01/16/18 AM. (3) Acute Kidney Injury on CKD stage III, Prior ESRD/CKD IV, status post kidney transplant: Admission BUN/Cr 25/2.13, baseline Cr 1.6-1.8, continue cellcept, prograf regimen. Held bactrim transiently as noted w/ zosyn usage x 3 days, now transitioned back, 01/14/18 BUN/Cr 15/1.51-->01/15/18 BUN/Cr 13/1.26, returned to baseline. CT abdomen and pelvis with evidence of marked distention of the bladder with wall thickening, mild hydronephrosis in the transplant kidney located in the right pelvis as well as marked hydroureter and hydronephrosis of the [place] ureters and kidneys increased compared to prior CT. Will need to follow-up with Dr. Dennis upon discharge to follow these changes. (4) Diarrhea, Suspect secondary to Abx Therapy: C-diff negative, does have history, suspect likely secondary to abx therapy. PRN loperamide (5) Hypertension: Continue home regimen including norvasc with hold parameters, PRN hydralazine. (6) Mild mental retardation: Stable, family supportive. Given ongoing difficulties in caring for himself family meeting with CM/SW with planned facility [facility] placement. (7) Hx DVT, PE: Maintain on home xarelto. (8) GERD: Protonix given renal fx. (9) Recent Oral Thrush: Appears resolved, continued regimen to completion per ENT recommendation. (10) DVT Prophylaxis: SCDs, xarelto. (11) Code Status: Full Code. Code Visit Inpatient E&M: 31973 Subs Hosp L2
[2018-01-15 07:41] LABS: Absolute Lymphocyte Count 0.84 X10^3/ul (0.83-4.51); Absolute Neutrophil Count 2.4 X10^3/uL (2.0-7.7); Basophil# 0.04 X10^3/uL; Eosinophil# 0.27 X10^3/uL; Eosinophils% 6.8 % (0-5); Hemoglobin 9.8 g/dl (13.0-16.5); Lymphocyte # 0.84 X10^3/ul (4.0); Lymphocyte % 21.3 % (19-41); Mean Corp Hgb Conc 30.6 g/gl (32-36); Mean Corpuscular Hgb 26.3 pg (27.0-32.0); Mean Corpuscular Volume 85.8 fL (80-94); Mean Platelet Vol. 9.3 fl (6.2-12.0); Monocyte% 10.1 % (0-10); Neutrophil # 2.38 X10^3/uL (2.7-7.7); Neutrophil % 60.3 % (47-70); Platelet Count 458 K/mm3 (150-450); RBC Distribution Width SD 47.2 fl (35.1-43.9); Red Blood Count 3.73 M/mm3 (4.6-6.2)
[2018-01-15 07:54] VITALS: BP 126/81; PULSE 91; RESP 18; TEMP 36.7; O2SAT 98
[2018-01-15 07:55] LABS: Albumin, Serum 2.3 g/dL (3.2-5.0); BUN 13 mg/dL (7-18); BUN/Creat Ratio 10.3 RATIO (10-20); Calcium,Total 7.8 mg/dL (8.5-10.1); Chloride 115 mmol/L (98-107); Creatinine, Serum 1.26 mg/dL (0.70-1.30); EST Glomerular Filtration Rate 64 mL/min (>60); Est Glom Filt Rate - Afr Amer 78 mL/min (>60); Glucose 86 mg/dL (74-106); Phosphorus 2.2 mg/dL (2.5-4.9); Potassium 4.2 mmol/L (3.5-5.1); Sodium Level 145 mmol/L (136-145)
[2018-01-15 07:57] LABS: POSITIVE COUNT NO; POSITIVE DIFFERENTIAL NO; POSITIVE MORPHOLOGY NO
[2018-01-15] MEDS: Smz/Tmp Ds Tablet 0.5 TABLET PO (09:20)
[2018-01-15] MEDS: Pantoprazole Sodium 20 MG Tablet PO ×2 (09:21→21:13)
[2018-01-15] MEDS: Tacrolimus Anhydrous 1 MG Capsule 2 MG PO ×2 (09:21→21:13)
[2018-01-15] MEDS: Mycophenolate Mofetil 250 MG Capsule 500 MG PO ×2 (09:21→21:14)
[2018-01-15] MEDS: NYSTATIN 500,000 UNIT/5 ML UDC 500000 UNIT PO ×4 (09:22→21:14)
--- NOTE | 2018-01-15 09:34 | NURSING ---
Pt ghazal schultz , mom in room visiting.
[2018-01-15 09:36] VITALS: O2SAT 96
[2018-01-15] MEDS: Loperamide 2 MG Capsule PO (09:50)
--- NOTE | 2018-01-15 12:46 | CASEMGMT ---
SOCIAL WORK: Met with patient and mother in his room. Introduced self and SW role. Discussed plan for transition to [facility] TCU on 01/16/18. Both voiced agreement with plan; no questions identified. Mother did voice some concerns about nursing care which this SW did notify charge nurse, Amy, about which include need for straight cath education, timely receipt of medication and set up of food trays in front of patient. No further issues identified. LIBBY Branham
[2018-01-15] MEDS: Na Biphos/Potassium Phosphate PACKET 1 PACKET PO ×3 (14:28→21:14)
[2018-01-15 15:54] VITALS: BP 115/76; PULSE 81; RESP 18; TEMP 37.2; O2SAT 98
[2018-01-15] MEDS: Rivaroxaban 20 MG Tablet PO (17:16)
[2018-01-15 21:09] VITALS: BP 119/77; PULSE 88; RESP 18; TEMP 36.5; O2SAT 98
[2018-01-15] MEDS: amLODIPine 5 MG Tablet PO (21:13)
[2018-01-16 03:10] VITALS: BP 122/70; PULSE 78; RESP 18; TEMP 37.1; O2SAT 97
[2018-01-16 07:35] VITALS: O2SAT 96
--- NOTE | 2018-01-16 07:41 | PCM.TXEXTCAR ---
- Diet 01/11/18 19:16 Diet: Cardiac/Low Cholesterol Food consistency:: Regular Liquid Consistency:: Regular/Thin - Routine Orders/Code Status Enema Type: Fleetz Enema Frequency: Daily PRN Suppository Type: Dulcolax 10mg Suppository Frequency: Daily PRN Keep PO Greater than or Equal to (%): 92 Routine Lab Work: - - Repeat CBC, BMP within 1 week. Code Status: Full Code - Therapies Weight Bearing: Full weight bearing Physical Therapy: Eval and Treat Occupational Therapy: Eval and Treat - Problem/Diagnosis (1) Acute UTI Status: Acute Current Visit: No (2) Sepsis Status: Acute Current Visit: Yes (3) PRISCILLA (acute kidney injury) Status: Acute Current Visit: Yes (4) Pulmonary embolism Status: Chronic Current Visit: No (5) CKD (chronic kidney disease), stage III Status: Chronic Current Visit: No (6) Kidney transplant recipient Status: Chronic Current Visit: No (7) Congenital nystagmus Status: Chronic Current Visit: No (8) Mild MRDD Status: Chronic Current Visit: No (9) DVT (deep venous thrombosis) Status: Chronic Current Visit: No (10) Neurogenic bladder disorder Status: Chronic Comment: managed with cic Current Visit: No - Allergies/Procedures Done in Hospital Allergies/Adverse Reactions: Allergies No Known Allergies Allergy (Verified 12/22/17 11:09) Procedures: EKG - Type of Care/Length of Stay Estimated LOS: Convalescent Care Less Than 30 days Type of Care Needed: Skilled Rehab Potential: Good Prognosis: Good - Additional Orders/Day of Discharge Additional Orders: (1) HOB. (2) IS 10x/hr 7a-7p. (3) Encourage OOB to chair with all meals and with therapies. (4) Must continue to teach and monitor all straight cathing, q 4hours during the day per his prior home regimen. H&P will serve as current which was dated: 01/11/18 Day of Discharge: 01/16/18 - Dietary and Speech Recommendations Dietitian Recommendations/Changes: Consider liberalizing diet to regular with no added salt per pt preference. - Follow Up Care Primary Care Physician: Mike Bella MD [Primary Care Provider] - Please follow up with your Primary Care Physician in: Follow-up in 1-2 days of SNF discharge and 3-5 days of hospital discharge. Please Follow Up With: Nakul Dennis MD When: Follow-up within 2 weeks. Please Follow Up With: Transplant Team When: Please follow-up within 2-4 weeks w/ your team.
--- NOTE | 2018-01-16 07:49 | PCM.DC.SUM ---
Discharge Date and Diagnosis - Problem List Patient Problems: Active and Suspected Problems (Last Reviewed 12/22/17 @ 11:28 by JASS Hull) Sepsis (Acute) PRISCILLA (acute kidney injury) (Acute) Date of Admission: 01/11/18 Date of Discharge: 01/16/18 - Primary Discharge Diagnosis Active and Suspected Problems (Last Reviewed 12/22/17 @ 11:28 by JASS Hull) (1) Acute Sepsis secondary to Suspected Acute Complicated Urinary Tract Infection w/ Neurogenic Bladder and Self-Catheterization (3) Acute Kidney Injury on CKD stage III, Prior ESRD/CKD IV, status post kidney transplant (4) Diarrhea, Suspect secondary to Abx Therapy (5) Hypertension (6) Mild mental retardation (7) Hx DVT, PE (8) GERD (9) Recent Oral Thrush, Resolved (10) Chronic Normocytic Anemia - Secondary Discharge Diagnosis Chronic Problems (Last Reviewed 12/22/17 @ 11:28 by JASS Hull) Pulmonary embolism (Chronic) Pulmonary infiltrate present on computed tomography (Chronic) CKD (chronic kidney disease), stage III (Chronic) Kidney transplant recipient (Chronic) Congenital nystagmus (Chronic) Mild MRDD (Chronic) DVT (deep venous thrombosis) (Chronic) Renal transplant, status post (Chronic) Neurogenic bladder disorder (Chronic) managed with cic Hospital Course and Treatment Discussed case w/ Dr. Cuevas Urology Operations: None Procedures: None Summary of Care Provided: The patient is a 52 y/o M w/ PMHx: Mild MRDD with help from his family/sister w/ Congenital Nystagmus, CKD stage III (baseline Cr 1.6, prior ESRD s/p Renal Txp), Renal Txp status on immunosuppressive therapy, Neurogenic bladder w/ self catheterization although not always complaint with q 4 hours during daytime, Hx DVT and PE on xarelto regimen who presented to the [facility] ED on 01/11/18 with history of ongoing low-grade temperatures, fatigue, weakness, more quiet than usual per sister report in addition to onset of suprapubic discomfort on day of ED presentation. Hx non-compliant with self catherization regimen. Harman placed in the ED. Admitted to [facility], [facility] upon ED evaluation remarkable, UCx however without organisms, admission CBC w/ WBC 7.3 with marked L shift, LA 0.7, treated w/ IVFs, monitor I/Os, initiated IV zosyn given prior sensitivities and dose vanc IV x 1 x 3 days with transition following to home oral prophylactic bactrim regimen. Planned follow-up with Dr. Dennis at discharge given patient noted CT abdomen and pelvis with evidence of marked distention of the bladder with wall thickening, mild hydronephrosis in the transplant kidney located in the right pelvis as well as marked hydroureter and hydronephrosis of the [place] ureters and kidneys increased compared to prior CT, small bowel ileus with no evidence of bowel obstruction with moderate stool in the colon per recommendation of Dr. Cuevas, current radon inspector Urologist. Amenable to d/c harman catheter and resumption of home self catheterization regimen. Bld cx x 2 obtained in the ED NGTD. PT, OT, CM Consultation w/ transition to TCU 01/16/18 AM. Additionally during admission, admission BUN/Cr 25/2.13, baseline Cr 1.6-1.8, continue cellcept, prograf regimen. Held bactrim transiently as noted w/ zosyn usage x 3 days, transitioned back after completion, 01/14/18 BUN/Cr 15/1.51-->01/16/18 BUN/Cr 13/1.26 01/15/18, returned to baseline. CT abdomen and pelvis with evidence of marked distention of the bladder with wall thickening, mild hydronephrosis in the transplant kidney located in the right pelvis as well as marked hydroureter and hydronephrosis of the [place] ureters and kidneys increased compared to prior CT. During admission following zosyn start patient w/ onset diarrhea, c-diff negative, loperamide started, improved. DAY OF DISCHARGE PROGRESS NOTE: Subjective: Patient without acute event overnight per self and nursing report. Patient still noting soft stools but per RN only x 1 and has PRN lomotil. Patient denies fever, chills, nausea, emesis, chest pain or dyspnea. Patient agreeable to discharge to SNF. Patient will be discharged to SNF with follow-up with primary care physician, Urology and his transplant team. Objective: T 98.8, heart rate 78, BP 122/70, respiratory rate 18, 97% on room air. Physical Examination: General: awake, alert, oriented x 3, baseline mild MRDD evident, cooperative, seated upright in the bed, NAD, talkative. Skin: normal color, turgor, no icterus, cyanosis. HEENT: AT/NC, EOMI, PERRLA, MMM, remains mildly hoarse. Lungs: Mildly decreased breath sounds bilateral bases, moderate effort, no rales, ronchi or wheezing. Heart: Regular rate with regular rhythm; no gallop, rub audible. Abdomen: soft, decreased suprapubic tenderness, ND, remains mildly hyperactive BS. Extremities: no cyanosis, clubbing, or edema. Neurological: patient awake, alert, oriented as noted; cognitive function mildly decreased from baseline, mild MRDD baseline; pupils equally reactive to light and accomodation; cranial nerves II-XII grossly normal, moving all 4 extremities, no focal deficits, strength improved, remains mildly to moderately globally decreased secondary to acute presentation, stable baseline nystagmus noted. Psychiatric: affect appears flat, suspect mild depression, no acute evidence of anxiety feelings. Assessment and Plan: Please see hospital summary above. Home Medications: Medications to take at Discharge Mycophenolate Mofetil [Cellcept] 500 mg PO [id number],209907/14/16 Amlodipine [Norvasc] 5 mg PO QHS 09/29/17 albuterol sulfate 2.5 mg/3 mL (0.083 %) solution for nebulization 2.5 mg INHALATION Q4H PRN #180 vial 12/15/17 albuterol sulfate 90 mcg/actuation breath activated powder inhaler 2 puff INHALATION Q4H PRN #1 ea 12/22/17 Lactobacillus Acidophilus [Acidophilus] 1 tablet PO BID 01/11/18 Ranitidine [Zantac] 150 mg PO BID 01/11/18 Rivaroxaban [Xarelto] 20 mg PO DAILY 01/11/18 Sulfamethoxazole/Trimethoprim [Sulfamethoxazole-Tmp Ss Tablet] 1 tab PO DAILY 01/11/18 Tacrolimus Anhydrous [Prograf] 2 mg PO 00,209901/11/18 Loperamide [Imodium] 2 mg PO Q2H PRN PRN capsule 01/16/18 Mag Hydrox/Al Hydrox/Simeth [Mylanta II] 30 ml PO Q6H PRN PRN udc 01/16/18 Na Biphos/Potassium Phosphate [Neutra-Phos Packet] 1 packet PO 4X/DAYCM #20 packet 01/16/18 Primary Care Physician: Mike Bella MD [Primary Care Provider] - Please follow up with your Primary Care Physician in: Follow-up in 1-2 days of SNF discharge and 3-5 days of hospital discharge. Please Follow Up With: Nakul Dennis MD When: Follow-up within 2 weeks. Please Follow Up With: Transplant Team When: Please follow-up within 2-4 weeks w/ your team. Disposition: [facility] facility Minutes spent on discharge:: 35 Patient Condition:: Fair Medical Necessity - Tobacco Use Smoking Status: Never smoker Tobacco Use: Non-smoker Meaningful Use Info Meaningful Use Diagnoses (Choose all that apply): None applicable Code Visit Inpatient E&M: 60999 Disch Hosp
--- NOTE | 2018-01-16 07:54 | DS.PCM_ITS ---
Discharge Date and Diagnosis - Problem List Patient Problems: Active and Suspected Problems (Last Reviewed 12/22/17 @ 11:28 by JASS Hull) Sepsis (Acute) PRISCILLA (acute kidney injury) (Acute) Date of Admission: 01/11/18 Date of Discharge: 01/16/18 - Primary Discharge Diagnosis Active and Suspected Problems (Last Reviewed 12/22/17 @ 11:28 by JASS Hull) (1) Acute Sepsis secondary to Suspected Acute Complicated Urinary Tract Infection w/ Neurogenic Bladder and Self-Catheterization (3) Acute Kidney Injury on CKD stage III, Prior ESRD/CKD IV, status post kidney transplant (4) Diarrhea, Suspect secondary to Abx Therapy (5) Hypertension (6) Mild mental retardation (7) Hx DVT, PE (8) GERD (9) Recent Oral Thrush, Resolved (10) Chronic Normocytic Anemia - Secondary Discharge Diagnosis Chronic Problems (Last Reviewed 12/22/17 @ 11:28 by JASS Hull) Pulmonary embolism (Chronic) Pulmonary infiltrate present on computed tomography (Chronic) CKD (chronic kidney disease), stage III (Chronic) Kidney transplant recipient (Chronic) Congenital nystagmus (Chronic) Mild MRDD (Chronic) DVT (deep venous thrombosis) (Chronic) Renal transplant, status post (Chronic) Neurogenic bladder disorder (Chronic) managed with cic Hospital Course and Treatment Discussed case w/ Dr. Cuevas Urology Operations: None Procedures: None Summary of Care Provided: The patient is a 52 y/o M w/ PMHx: Mild MRDD with help from his family/sister w / Congenital Nystagmus, CKD stage III (baseline Cr 1.6, prior ESRD s/p Renal Txp ), Renal Txp status on immunosuppressive therapy, Neurogenic bladder w/ self catheterization although not always complaint with q 4 hours during daytime, Hx DVT and PE on xarelto regimen who presented to the [facility] ED on 01/11/18 with history of ongoing low-grade temperatures, fatigue, weakness, more quiet than usual per sister report in addition to onset of suprapubic discomfort on day of ED presentation. Hx non-compliant with self catherization regimen. Harman placed in the ED. Admitted to [facility], UA upon ED evaluation remarkable, UCx however without organisms, admission CBC w/ WBC 7.3 with marked L shift, LA 0.7, treated w/ IVFs, monitor I/Os, initiated IV zosyn given prior sensitivities and dose vanc IV x 1 x 3 days with transition following to home oral prophylactic bactrim regimen. Planned follow-up with Dr. Dennis at discharge given patient noted CT abdomen and pelvis with evidence of marked distention of the bladder with wall thickening, mild hydronephrosis in the transplant kidney located in the right pelvis as well as marked hydroureter and hydronephrosis of the [place] ureters and kidneys increased compared to prior CT, small bowel ileus with no evidence of bowel obstruction with moderate stool in the colon per recommendation of Dr. Cuevas, current administrative assistant receptionist Urologist. Amenable to d/c harman catheter and resumption of home self catheterization regimen. Bld cx x 2 obtained in the ED NGTD. PT, OT, CM Consultation w/ transition to TCU 01/16/18 AM. Additionally during admission, admission BUN/Cr 25/2.13, baseline Cr 1.6-1.8 , continue cellcept, prograf regimen. Held bactrim transiently as noted w/ zosyn usage x 3 days, transitioned back after completion, 01/14/18 BUN/Cr 15/1.51 -->01/16/18 BUN/Cr 13/1.26 01/15/18, returned to baseline. CT abdomen and pelvis with evidence of marked distention of the bladder with wall thickening, mild hydronephrosis in the transplant kidney located in the right pelvis as well as marked hydroureter and hydronephrosis of the [place] ureters and kidneys increased compared to prior CT. During admission following zosyn start patient w / onset diarrhea, c-diff negative, loperamide started, improved. DAY OF DISCHARGE PROGRESS NOTE: Subjective: Patient without acute event overnight per self and nursing report. Patient still noting soft stools but per RN only x 1 and has PRN lomotil. Patient denies fever, chills, nausea, emesis, chest pain or dyspnea. Patient agreeable to discharge to SNF. Patient will be discharged to SNF with follow-up with primary care physician, Urology and his transplant team. Objective: T 98.8, heart rate 78, BP 122/70, respiratory rate 18, 97% on room air. Physical Examination: General: awake, alert, oriented x 3, baseline mild MRDD evident, cooperative, seated upright in the bed, NAD, talkative. Skin: normal color, turgor, no icterus, cyanosis. HEENT: AT/NC, EOMI, PERRLA, MMM, remains mildly hoarse. Lungs: Mildly decreased breath sounds bilateral bases, moderate effort, no rales , ronchi or wheezing. Heart: Regular rate with regular rhythm; no gallop, rub audible. Abdomen: soft, decreased suprapubic tenderness, ND, remains mildly hyperactive BS. Extremities: no cyanosis, clubbing, or edema. Neurological: patient awake, alert, oriented as noted; cognitive function mildly decreased from baseline, mild MRDD baseline; pupils equally reactive to light and accomodation; cranial nerves II-XII grossly normal, moving all 4 extremities, no focal deficits, strength improved, remains mildly to moderately globally decreased secondary to acute presentation, stable baseline nystagmus noted. Psychiatric: affect appears flat, suspect mild depression, no acute evidence of anxiety feelings. Assessment and Plan: Please see hospital summary above. Home Medications: Medications to take at Discharge Mycophenolate Mofetil [Cellcept] 500 mg PO 899,209907/14/16 Amlodipine [Norvasc] 5 mg PO QHS 09/29/17 albuterol sulfate 2.5 mg/3 mL (0.083 %) solution for nebulization 2.5 mg INHALATION Q4H PRN #180 vial 12/15/17 albuterol sulfate 90 mcg/actuation breath activated powder inhaler 2 puff INHALATION Q4H PRN #1 ea 12/22/17 Lactobacillus Acidophilus [Acidophilus] 1 tablet PO BID 01/11/18 Ranitidine [Zantac] 150 mg PO BID 01/11/18 Rivaroxaban [Xarelto] 20 mg PO DAILY 01/11/18 Sulfamethoxazole/Trimethoprim [Sulfamethoxazole-Tmp Ss Tablet] 1 tab PO DAILY Tacrolimus Anhydrous [Prograf] 2 mg PO 00,209901/11/18 Loperamide [Imodium] 2 mg PO Q2H PRN PRN capsule 01/16/18 Mag Hydrox/Al Hydrox/Simeth [Mylanta II] 30 ml PO Q6H PRN PRN udc 01/16/18 Na Biphos/Potassium Phosphate [Neutra-Phos Packet] 1 packet PO 4X/DAYCM #20 packet 01/16/18 Primary Care Physician: Mike Bella MD [Primary Care Provider] - Please follow up with your Primary Care Physician in: Follow-up in 1-2 days of SNF discharge and 3-5 days of hospital discharge. Please Follow Up With: Nakul Dennis MD When: Follow-up within 2 weeks. Please Follow Up With: Transplant Team When: Please follow-up within 2-4 weeks w/ your team. Disposition: Detention facility Minutes spent on discharge:: 35 Patient Condition:: Fair Medical Necessity - Tobacco Use Smoking Status: Never smoker Tobacco Use: Non-smoker Meaningful Use Info Meaningful Use Diagnoses (Choose all that apply): None applicable Code Visit Inpatient E&M: 64424 Disch Hosp
[2018-01-16] MEDS: Na Biphos/Potassium Phosphate PACKET 1 PACKET PO ×2 (07:59→12:23)
[2018-01-16] MEDS: Smz/Tmp Ds Tablet 0.5 TABLET PO (07:59)
[2018-01-16 08:51] VITALS: BP 122/66; PULSE 80; RESP 18; TEMP 36.8; O2SAT 98
[2018-01-16] MEDS: Tacrolimus Anhydrous 1 MG Capsule 2 MG PO (09:19)
[2018-01-16] MEDS: Pantoprazole Sodium 20 MG Tablet PO (09:19)
[2018-01-16] MEDS: Mycophenolate Mofetil 250 MG Capsule 500 MG PO (09:19)
[2018-01-16] MEDS: NYSTATIN 500,000 UNIT/5 ML UDC 500000 UNIT PO (09:19)
[2018-01-16 12:39] VITALS: BP 128/70; PULSE 70; RESP 18; TEMP 37; O2SAT 98
== END 2018-01-16 13:00 | disposition skilled nursing facility (03) | DRG 698 ==
LOC: ED 15:54 → MS3 19:24
PROVIDERS: Student in an Organized Health Care Education/Training Program; Admitting Provider Family Medicine; Emergency Provider Emergency Medicine; Family Provider Family Medicine; PCP Family Medicine; Visit Provider Family Medicine
DX: T83.518A Infection and inflammatory reaction due to other urinary catheter, initial encounter (principal); A41.9 Sepsis, unspecified organism; N39.0 Urinary tract infection, site not specified; N17.9 Acute kidney failure, unspecified; T86.13 Kidney transplant infection; K52.1 Toxic gastroenteritis and colitis; N18.3 Chronic kidney disease, stage 3 (moderate); Z86.718 Personal history of other venous thrombosis and embolism; F70 Mild intellectual disabilities; K21.9 Gastro-esophageal reflux disease without esophagitis; D64.9 Anemia, unspecified; Z86.711 Personal history of pulmonary embolism; Z79.899 Other long term (current) drug therapy; N31.9 Neuromuscular dysfunction of bladder, unspecified; H55.01 Congenital nystagmus; Z79.01 Long term (current) use of anticoagulants; T36.95XA Adverse effect of unspecified systemic antibiotic, initial encounter
CPT/HCPCS: 36415; 51702; 74176; 80048; 80069; 80076; 81001; 83605; 83690; 83735; 85025; 87040; 87086; 87493; 97116; 97162; 97166; 97530; 97802; 99283; J7030; P9612; A4216; J2405

== ENCOUNTER 2018-01-16 13:00 | Inpatient (IN) | payer MEDICARE, OTHER, SELFPAY ==
--- NOTE | 2018-01-16 13:00 | NURSING ---
pt arrived from [facility] via [facility]
[2018-01-16 13:54] VITALS: BP 126/66; PULSE 96; RESP 16; TEMP 37.1; O2SAT 97; BMI 23.6; BMI 23.7
[2018-01-16] MEDS: Rivaroxaban 20 MG Tablet PO (17:13)
[2018-01-16] MEDS: Famotidine 20 MG Tablet PO (17:13)
[2018-01-16] MEDS: Na Biphos/Potassium Phosphate PACKET 1 PACKET PO ×2 (17:13→21:01)
--- NOTE | 2018-01-16 20:15 | PCM.HP.STD ---
Problem List (1) Urinary tract infection Status: Acute (2) Abdominal pain Status: Acute (3) Urinary retention Status: Acute (4) Chronic kidney disease Status: Chronic (5) Mild intellectual disability Status: Chronic (6) Sepsis Status: Acute Qualifiers: (7) PRISCILLA (acute kidney injury) Status: Acute (8) Pulmonary embolism Status: Chronic Qualifiers: (9) DVT (deep venous thrombosis) Status: Chronic Qualifiers: (10) Neurogenic bladder disorder Status: Chronic Comment: managed with cic History of Present Illness Date of Admission: 01/16/18 Chief Complaint: Here for rehabilitation, strengthening, prior to discharge to [facility]. The patient is a 52 year old Male with below past medical history presented to [facility] Emergency Department 01/11/2018 with abdominal pain. 01/11/2018 CT abdomen and pelvis, distended urinary bladder, cystitis, mild hydronephrosis right pelvis transplant kidney, marked hydronephrosis [place] kidneys, small bowel obstruction, moderate stool in colon. Sharp, diffuse, abdominal pain, diarrhea. Cr 2.13, UA consistent with UTI. Rocephin IV, IV fluids given. Urine culture resistant to Rocephin. Switch antibiotics to Zosyn. 01/11/2018 Admit to Hospital. IV Zosyn, IV Vancomycin for UTI/sepsis. IV Fluids. Complete Nystatin for thrush. 01/12/2018 Fever 99.4, cultures pending. Zosyn IV for urinary tract infection. Not compliant with self straight cath. 01/13/2018 Continue Zosyn IV. Ga catheter for urinary retention. Xarelto for DVT/PE. 01/14/2018 Urine culture negative, blood culture pending. Zosyn stopped, restart Bactrim prophylaxis. Diarrhea x 3, check stool for C. Diff. 01/15/2018 Needs follow up with Dr. Dennis. Kidney function back to baseline. Consider [facility] after short term rehab. C. Diff NEGATIVE. 01/16/2018 Admit to TCU with debility, here for rehabilitation, strengthening, prior to placement in [facility] if possible. Past Medical History Past Medical History (Chronic Problems): Chronic Problems (Last Reviewed 12/22/17 @ 11:28 by Siria Harp NP-C) Chronic kidney disease (Chronic) Mild intellectual disability (Chronic) Pulmonary embolism (Chronic) Pulmonary infiltrate present on computed tomography (Chronic) CKD (chronic kidney disease), stage III (Chronic) Kidney transplant recipient (Chronic) Congenital nystagmus (Chronic) Mild MRDD (Chronic) DVT (deep venous thrombosis) (Chronic) Renal transplant, status post (Chronic) Neurogenic bladder disorder (Chronic) managed with cic Medical History: Medical History (Last Reviewed 12/22/17 @ 11:28 by Siria Harp NP-C) Right-sided chest pain (Acute) R07.9 Nonproductive cough (Acute) R05 Bronchitis (Acute) J40 Pulmonary embolism (Chronic) I26.99 Chest pain (Acute) R07.9 Pulmonary infiltrate present on computed tomography (Chronic) R91.8 CKD (chronic kidney disease), stage III (Chronic) N18.3 Acute UTI (Acute) N39.0 Kidney transplant recipient (Chronic) Z94.0 Congenital nystagmus (Chronic) H55.01 Mild MRDD (Chronic) DVT (deep venous thrombosis) (Chronic) I82.409 Neurogenic bladder disorder (Chronic) N31.9 managed with cic Allergies No Known Allergies Allergy (Verified 12/22/17 11:09) Home Medications: Ambulatory Orders Medication Instructions Recorded Mycophenolate Mofetil [Cellcept] 500 mg PO 0900,209907/14/16 Amlodipine [Norvasc] 5 mg PO QHS 09/29/17 albuterol sulfate 2.5 mg/3 mL 2.5 mg INHALATION Q4H PRN #180 vial 12/15/17 (0.083 %) solution for nebulization albuterol sulfate 90 mcg/actuation 2 puff INHALATION Q4H PRN #1 ea 12/22/17 breath activated powder inhaler Lactobacillus Acidophilus 1 tablet PO BID 01/11/18 [Acidophilus] Ranitidine [Zantac] 150 mg PO BID 01/11/18 Rivaroxaban [Xarelto] 20 mg PO DAILY 01/11/18 Sulfamethoxazole/Trimethoprim 1 tab PO DAILY 01/11/18 [Sulfamethoxazole-Tmp Ss Tablet] Tacrolimus Anhydrous [Prograf] 2 mg PO 0900,209901/11/18 Loperamide [Imodium] 2 mg PO Q2H PRN PRN capsule 01/16/18 Mag Hydrox/Al Hydrox/Simeth 30 ml PO Q6H PRN PRN udc 01/16/18 [Mylanta II] Na Biphos/Potassium Phosphate 1 packet PO 4X/DAYCM 01/16/18 [Neutra-Phos Packet] Surgical History: Surgical History (Last Reviewed 12/22/17 @ 11:28 by JASS Hull) Renal transplant, status post (Chronic) Z94.0 Surgical History: - - Right kidney transplant , dialysis access prior, Right upper extremity fistula. Psychiatric History: No pertinent psych hx, - - MRDD Lives: Alone Smoking Status: Never smoker Tobacco Use: Non-smoker Alcohol: None Drugs: None - *Family History Maternal History Items: Hypertension Paternal History Items: Diabetes Review of Systems Constitutional: Denies: Chills, Fever, Weight Change HEENT: Denies: Head Aches, Sinus Congestion, Sinus Drainage Cardiovascular: Denies: Chest Pain, Palpitations Respiratory: Denies: Cough, Shortness of breath at rest, Sputum production Gastrointestinal: Denies: Abdominal Pain, Nausea, Vomiting Genitourinary: Denies: Dysuria Musculoskeletal: Denies: Joint Pain, Joint Tenderness Skin: Denies: Rash, Wounds Neurological: Denies: Numbness, Tingling, Focal weakness Psychiatric: Denies: Anxiety, Depression, Homicidal Ideations, Suicidal Ideations Hematologic/ Lymphatic: Denies: Easy Bruising, Easy Bleeding VTE Information - Inpt Only VTE Present on Admission: No VTE Mechan Device Prophylaxis: Knee High SAMMY Hose VTE Pharm Prophylaxis ordered?: No Reason prophylaxis not ordered:: Treatment Not Indicated Patient Problems: Active and Suspected Problems (Last Reviewed 12/22/17 @ 11:28 by Siria Harp INDUCTION MACHINE SETTER-C) Urinary tract infection (Acute) Abdominal pain (Acute) Urinary retention (Acute) - Physical Exam General: Alert, Oriented x3, Cooperative HEENT: Atraumatic, PERRLA, EOMI, Normocephalic Neck: Supple, No JVD, Negative Carotid Bruits Lungs: Clear to auscultation, Normal air movement Cardiovascular: Regular rate, No murmurs Abdomen: Bowel Sounds Present, Soft, Non Tender Extremities: No edema, Capillary Refill Less than 3 Seconds, - - RUE fistula. Skin: No rashes, No breakdown Musculoskeletal: No Tenderness to Palpation of Joints or Extremities Neurological: Cranial nerves II-XII grossly intact Psych/Mental Status: Normal Affect, Appropriate Vital Signs Temp Pulse Resp BP Pulse Ox 98.8 F 96 16 126/66 H 97 01/16/18 13:54 01/16/18 13:54 01/16/18 13:54 01/16/18 13:54 01/16/18 13:54 Oxygen Delivery Method Room Air Weight: 79.107 kg Body Mass Index (BMI) 23.6 Assessment/Plan All Active Problems (Last Reviewed 12/22/17 @ 11:28 by Siria Harp, INDUCTION MACHINE SETTER-C) Sepsis (Acute) PRISCILLA (acute kidney injury) (Acute) Urinary tract infection (Acute) Abdominal pain (Acute) Urinary retention (Acute) Right-sided chest pain (Acute) Nonproductive cough (Acute) Bronchitis (Acute) Chest pain (Acute) Acute UTI (Acute) 52 year old male with below past medical history hospitalized for sepsis secondary to urinary tract infection, cultures negative, only on prophylactic antibiotic, admitted to TCU with debility, here for rehabilitation, strengthening, prior to discharge to [facility]. Debility - PT/OT. Pain - Tylenol 1000MG Q8H PRN mild pain. Bowel - Miralax 17GM daily, Senna/colace 1 tablet BID, Dulcolax 10MG PO daily PRN, suspect diarrhea is overflow diarrhea, order X-ray of abdomen. Pneumonia vaccination - Administer Prevnar 13 and/or Pneumovax 23 as necessary. DVT prophylaxis - Not necessary, already on Xarelto. Shortness of breath - Albuterol 2.5MG Q4H PRN, Albuterol 2 puffs Q4H PRN. Hypertension - Amlodipine 5MG QHS. GERD - Famotidine 20MG BID, Mylanta II 30ML Q6H PRN. GI prophylaxis - Lactobacillus 1 tablet BID. Kidney Transplant - Cellcept 500MG BID, Prograf 2MG BID. Hypophosphatemia - Neutra-Phos 1 packet 4x/day. Recurrent UTI - Bactrim DS 1/2 tablet daily, self straight cath.
--- NOTE | 2018-01-16 20:24 | HP.PCM_ITS ---
Problem List (1) Urinary tract infection Status: Acute (2) Abdominal pain Status: Acute (3) Urinary retention Status: Acute (4) Chronic kidney disease Status: Chronic (5) Mild intellectual disability Status: Chronic (6) Sepsis Status: Acute Qualifiers: (7) PRISCILLA (acute kidney injury) Status: Acute (8) Pulmonary embolism Status: Chronic Qualifiers: (9) DVT (deep venous thrombosis) Status: Chronic Qualifiers: (10) Neurogenic bladder disorder Status: Chronic Comment: managed with cic History of Present Illness Date of Admission: 01/16/18 Chief Complaint: Here for rehabilitation, strengthening, [facility]. The patient is a 52 year old Male with below past medical history presented to [facility] Emergency Department 01/11/2018 with abdominal pain. 01/11/2018 CT abdomen and pelvis, distended urinary bladder, cystitis, mild hydronephrosis right pelvis transplant kidney, marked hydronephrosis [place] kidneys, small bowel obstruction, moderate stool in colon. Sharp, diffuse, abdominal pain, diarrhea. Cr 2.13, UA consistent with UTI. Rocephin IV, IV fluids given. Urine culture resistant to Rocephin. Switch antibiotics to Zosyn. 01/11/2018 Admit to Hospital. IV Zosyn, IV Vancomycin for UTI/sepsis. IV Fluids. Complete Nystatin for thrush. 01/12/2018 Fever 99.4, cultures pending. Zosyn IV for urinary tract infection. Not compliant with self straight cath. 01/13/2018 Continue Zosyn IV. Ga catheter for urinary retention. Xarelto for DVT/PE. 01/14/2018 Urine culture negative, blood culture pending. Zosyn stopped, restart Bactrim prophylaxis. Diarrhea x 3, check stool for C. Diff. 01/15/2018 Needs follow up with Dr. Dennis. Kidney function back to baseline. [facility]. C. Diff NEGATIVE. 01/16/2018 Admit to TCU with debility, here for rehabilitation, strengthening, prior to [facility] in [facility] if possible. Past Medical History Past Medical History (Chronic Problems): Chronic Problems (Last Reviewed 12/22/17 @ 11:28 by Siria Harp NP-C) Chronic kidney disease (Chronic) Mild intellectual disability (Chronic) Pulmonary embolism (Chronic) Pulmonary infiltrate present on computed tomography (Chronic) CKD (chronic kidney disease), stage III (Chronic) Kidney transplant recipient (Chronic) Congenital nystagmus (Chronic) Mild MRDD (Chronic) DVT (deep venous thrombosis) (Chronic) Renal transplant, status post (Chronic) Neurogenic bladder disorder (Chronic) managed with cic Medical History: Medical History (Last Reviewed 12/22/17 @ 11:28 by Siria Harp NP-C) Right-sided chest pain (Acute) R07.9 Nonproductive cough (Acute) R05 Bronchitis (Acute) J40 Pulmonary embolism (Chronic) I26.99 Chest pain (Acute) R07.9 Pulmonary infiltrate present on computed tomography (Chronic) R91.8 CKD (chronic kidney disease), stage III (Chronic) N18.3 Acute UTI (Acute) N39.0 Kidney transplant recipient (Chronic) Z94.0 Congenital nystagmus (Chronic) H55.01 Mild MRDD (Chronic) DVT (deep venous thrombosis) (Chronic) I82.409 Neurogenic bladder disorder (Chronic) N31.9 managed with cic Allergies No Known Allergies Allergy (Verified 12/22/17 11:09) Home Medications: Ambulatory Orders Medication Instructions Recorded Mycophenolate Mofetil [Cellcept] 500 mg PO 0900,209907/14/16 Amlodipine [Norvasc] 5 mg PO QHS 09/29/17 albuterol sulfate 2.5 mg/3 mL 2.5 mg INHALATION Q4H PRN #180 vial 12/15/17 (0.083 %) solution for nebulization albuterol sulfate 90 mcg/actuation 2 puff INHALATION Q4H PRN #1 ea 12/22/17 breath activated powder inhaler Lactobacillus Acidophilus 1 tablet PO BID 01/11/18 [Acidophilus] Ranitidine [Zantac] 150 mg PO BID 01/11/18 Rivaroxaban [Xarelto] 20 mg PO DAILY 01/11/18 Sulfamethoxazole/Trimethoprim 1 tab PO DAILY 01/11/18 [Sulfamethoxazole-Tmp Ss Tablet] Tacrolimus Anhydrous [Prograf] 2 mg PO 0900,209901/11/18 Loperamide [Imodium] 2 mg PO Q2H PRN PRN capsule 01/16/18 Mag Hydrox/Al Hydrox/Simeth 30 ml PO Q6H PRN PRN udc 01/16/18 [Mylanta II] Na Biphos/Potassium Phosphate 1 packet PO 4X/DAYCM 01/16/18 [Neutra-Phos Packet] Surgical History: Surgical History (Last Reviewed 12/22/17 @ 11:28 by JASS Hull) Renal transplant, status post (Chronic) Z94.0 Surgical History: - - Right kidney transplant , dialysis access prior, Right upper extremity fistula. Psychiatric History: No pertinent psych hx, - - MRDD Lives: Alone Smoking Status: Never smoker Tobacco Use: Non-smoker Alcohol: None Drugs: None - *Family History Maternal History Items: Hypertension Paternal History Items: Diabetes Review of Systems Constitutional: Denies: Chills, Fever, Weight Change HEENT: Denies: Head Aches, Sinus Congestion, Sinus Drainage Cardiovascular: Denies: Chest Pain, Palpitations Respiratory: Denies: Cough, Shortness of breath at rest, Sputum production Gastrointestinal: Denies: Abdominal Pain, Nausea, Vomiting Genitourinary: Denies: Dysuria Musculoskeletal: Denies: Joint Pain, Joint Tenderness Skin: Denies: Rash, Wounds Neurological: Denies: Numbness, Tingling, Focal weakness Psychiatric: Denies: Anxiety, Depression, Homicidal Ideations, Suicidal Ideations Hematologic/ Lymphatic: Denies: Easy Bruising, Easy Bleeding VTE Information - Inpt Only VTE Present on Admission: No VTE Mechan Device Prophylaxis: Knee High SAMMY Hose VTE Pharm Prophylaxis ordered?: No Reason prophylaxis not ordered:: Treatment Not Indicated Patient Problems: Active and Suspected Problems (Last Reviewed 12/22/17 @ 11:28 by Siria Harp VOCATIONAL COUNSELOR-C) Urinary tract infection (Acute) Abdominal pain (Acute) Urinary retention (Acute) - Physical Exam General: Alert, Oriented x3, Cooperative HEENT: Atraumatic, PERRLA, EOMI, Normocephalic Neck: Supple, No JVD, Negative Carotid Bruits Lungs: Clear to auscultation, Normal air movement Cardiovascular: Regular rate, No murmurs Abdomen: Bowel Sounds Present, Soft, Non Tender Extremities: No edema, Capillary Refill Less than 3 Seconds, - - RUE fistula. Skin: No rashes, No breakdown Musculoskeletal: No Tenderness to Palpation of Joints or Extremities Neurological: Cranial nerves II-XII grossly intact Psych/Mental Status: Normal Affect, Appropriate Vital Signs Temp Pulse Resp BP Pulse Ox 98.8 F 96 16 126/66 H 97 01/16/18 13:54 01/16/18 13:54 01/16/18 13:54 01/16/18 13:54 01/16/18 13:54 Oxygen Delivery Method Room Air Weight: 79.107 kg Body Mass Index (BMI) 23.6 Assessment/Plan All Active Problems (Last Reviewed 12/22/17 @ 11:28 by Siria Harp, VOCATIONAL COUNSELOR-C) Sepsis (Acute) PRISCILLA (acute kidney injury) (Acute) Urinary tract infection (Acute) Abdominal pain (Acute) Urinary retention (Acute) Right-sided chest pain (Acute) Nonproductive cough (Acute) Bronchitis (Acute) Chest pain (Acute) Acute UTI (Acute) 52 year old male with below past medical history hospitalized for sepsis secondary to urinary tract infection, cultures negative, only on prophylactic antibiotic, admitted to TCU with debility, here for rehabilitation, strengthening, [facility]. * Debility - PT/OT. * Pain - Tylenol 1000MG Q8H PRN mild pain. * Bowel - Miralax 17GM daily, Senna/colace 1 tablet BID, Dulcolax 10MG PO daily PRN, suspect diarrhea is overflow diarrhea, order X-ray of abdomen. * Pneumonia vaccination - Administer Prevnar 13 and/or Pneumovax 23 as necessary. * DVT prophylaxis - Not necessary, already on Xarelto. * Shortness of breath - Albuterol 2.5MG Q4H PRN, Albuterol 2 puffs Q4H PRN. * Hypertension - Amlodipine 5MG QHS. * GERD - Famotidine 20MG BID, Mylanta II 30ML Q6H PRN. * GI prophylaxis - Lactobacillus 1 tablet BID. * Kidney Transplant - Cellcept 500MG BID, Prograf 2MG BID. * Hypophosphatemia - Neutra-Phos 1 packet 4x/day. * Recurrent UTI - Bactrim DS 1/2 tablet daily, self straight cath.
--- NOTE | 2018-01-16 20:34 | RAD_ITS ---
STUDY: X-RAY - ABDOMEN/PELVIS REASON FOR EXAM: Male, 52 years old. Constipation, abdominal pain. TECHNIQUE: Two portable AP supine views of the abdomen and pelvis. COMPARISON: CT abdomen and pelvis January 11, 2018 FINDINGS: Normal visualized lung bases. There is moderate fecal volume throughout the colon, which may reflect a degree of constipation. Gas is present in the rectal vault. No small bowel distention to indicate obstruction. There is no demonstrated free abdominal air. Surgical clips of prior right pelvic transplant kidney again noted in the right lower quadrant. The visualized liver, spleen and kidneys are grossly normal in size and morphology. There are calcified phleboliths in the pelvis. Normal visualized osseous structures. RAD/Abdomen Single View IMPRESSION: 1. Moderate fecal load in the colon, which may reflect a degree of constipation. No finding of carlos obstruction. 2. Prior right pelvic transplant kidney. Electronically Signed: Aime Liu MD at 21:27 EDT , Service support ,
[2018-01-16] MEDS: Tacrolimus Anhydrous 1 MG Capsule 2 MG PO (21:01)
[2018-01-16] MEDS: amLODIPine 5 MG Tablet PO (21:01)
[2018-01-16] MEDS: Mycophenolate Mofetil 250 MG Capsule 500 MG PO (21:01)
[2018-01-17] MEDS: Electrolyte Solution/Peg's 4000 ML 1000 ML PO (00:01)
[2018-01-17 05:50] LABS: Absolute Lymphocyte Count 0.87 X10^3/ul (0.83-4.51); Absolute Neutrophil Count 2.8 X10^3/uL (2.0-7.7); Basophil# 0.03 X10^3/uL; Basophil% 0.7 % (0-1); Eosinophil# 0.35 X10^3/uL; Eosinophils% 7.6 % (0-5); Hematocrit 33.1 % (40-54); Hemoglobin 10.1 g/dl (13.0-16.5); Lymphocyte # 0.87 X10^3/ul (4.0); Lymphocyte % 18.9 % (19-41); Mean Corp Hgb Conc 30.5 g/gl (32-36); Mean Corpuscular Hgb 25.9 pg (27.0-32.0); Mean Corpuscular Volume 84.9 fL (80-94); Mean Platelet Vol. 9.3 fl (6.2-12.0); Monocyte% 10.8 % (0-10); Neutrophil # 2.84 X10^3/uL (2.7-7.7); Neutrophil % 61.6 % (47-70); Platelet Count 424 K/mm3 (150-450); RBC Distribution Width CV 15.2 % (11.6-14.6); RBC Distribution Width SD 46.7 fl (35.1-43.9); White Blood Count 4.6 K/mm3 (4.4-11.0)
[2018-01-17 05:58] LABS: Anion Gap 9 (5-15); BUN 18 mg/dL (7-18); BUN/Creat Ratio 11.5 RATIO (10-20); Calcium,Total 7.9 mg/dL (8.5-10.1); Chloride 112 mmol/L (98-107); Creatinine, Serum 1.56 mg/dL (0.70-1.30); EST Glomerular Filtration Rate 50 mL/min (>60); Est Glom Filt Rate - Afr Amer 61 mL/min (>60); Estimated Creatinine Clearance 62.18 ml/min; Glucose 85 mg/dL (74-106); Potassium 4.2 mmol/L (3.5-5.1); Sodium Level 143 mmol/L (136-145)
[2018-01-17] MEDS: Famotidine 20 MG Tablet PO ×2 (06:07→17:26)
[2018-01-17] MEDS: Senna/Docusate Sodium 1 Tablet PO ×2 (06:07→17:27)
[2018-01-17] MEDS: Polyethylene Glycol 3350 17 GM PACKET PO (06:07)
[2018-01-17 06:10] LABS: POSITIVE COUNT NO; POSITIVE DIFFERENTIAL NO; POSITIVE MORPHOLOGY NO
[2018-01-17] MEDS: Na Biphos/Potassium Phosphate PACKET 1 PACKET PO ×4 (09:43→20:51)
[2018-01-17] MEDS: Tacrolimus Anhydrous 1 MG Capsule 2 MG PO ×2 (09:43→20:51)
[2018-01-17] MEDS: Mycophenolate Mofetil 250 MG Capsule 500 MG PO ×2 (09:43→20:51)
[2018-01-17] MEDS: Smz/Tmp Ds Tablet 0.5 TABLET PO (09:44)
--- NOTE | 2018-01-17 10:17 | NURSING ---
Pt's mother upset because 0900 medications not given at exactly 0900. Explained to patient's mother that this nurse was unaware that medications needed to be given at the exact time and that we will ensure they are given on time from now on.
--- NOTE | 2018-01-17 10:42 | NURSING ---
Pt having hematuria, and has had no result from Dr. Gentry lemus updated, NO to hold Xarelto until urine clears and then resume. Also, NO for soap suds enema, x1.
[2018-01-17] MEDS: Tuberculin,Purif.prot.deriv. 50 TU/ML Vial 5 ML ID (12:45)
[2018-01-17 14:03] VITALS: BP 115/59; PULSE 91; RESP 18; O2SAT 95
[2018-01-17 16:00] VITALS: BP 112/66; PULSE 93; RESP 16; TEMP 37; O2SAT 97
--- NOTE | 2018-01-17 18:33 | NURSING ---
SS enema given, not able to tolerate much of it, up to br and had small results, some liquid with few solid pieces.
[2018-01-17] MEDS: amLODIPine 5 MG Tablet PO ×2 (20:51)
[2018-01-17 21:31] VITALS: PULSE 92; RESP 18; O2SAT 95
--- NOTE | 2018-01-17 23:30 | NURSING ---
In to assist pt with straight cath. Pt refusing to do it and wants staff do it. Pt states he does not like to do it. Straight cath preformed with 700ml out. Pt tolerated well
[2018-01-18] MEDS: Senna/Docusate Sodium 1 Tablet PO ×2 (05:52→16:34)
[2018-01-18] MEDS: Famotidine 20 MG Tablet PO ×2 (05:53→16:34)
[2018-01-18] MEDS: Polyethylene Glycol 3350 17 GM PACKET PO (05:53)
[2018-01-18] MEDS: Mycophenolate Mofetil 250 MG Capsule 500 MG PO ×2 (08:36→20:48)
[2018-01-18] MEDS: Tacrolimus Anhydrous 1 MG Capsule 2 MG PO ×2 (08:36→20:49)
[2018-01-18] MEDS: Smz/Tmp Ds Tablet 0.5 TABLET PO (08:36)
[2018-01-18] MEDS: Na Biphos/Potassium Phosphate PACKET 1 PACKET PO ×4 (08:37→20:49)
--- NOTE | 2018-01-18 10:57 | PHA.CONS_ITS ---
<Jimmy Velasquez D - Last Filed: 01/18/18 10:28> Progress Note - Pharmacy Subjective: TCU Admission Objective: Allergies No Known Allergies Allergy (Verified 12/22/17 11:09) Current Medications Generic Name Dose Route Start Last Admin Trade Name Freq PRN Reason Stop Dose Admin Acetaminophen 1,000 mg 01/16/18 20:31 Tylenol PO Q8H PRN MILD PAIN (1-3/10) Al Hydroxide/Mg Hydroxide 30 ml 01/16/18 14:02 Mylanta Ii PO Q6H PRN PRN Gastric burning Albuterol Sulfate 2.5 mg 01/16/18 14:02 Ventolin Aerosols INHALATION Q4H PRN shortness of breath or wheezing Albuterol Sulfate 2 puff 01/16/18 14:02 Ventolin Hfa (Sp) INHALATION Q4H PRN shortness of breath or wheezin Amlodipine Besylate 5 mg 01/16/18 22:00 01/17/18 20:51 Norvasc PO 5 mg QHS SERA Administration Bisacodyl 10 mg 01/16/18 20:33 Dulcolax PO DAILY PRN Constipation Famotidine 20 mg 01/16/18 18:00 01/18/18 05:53 Pepcid PO 20 mg BID SERA Administration Lactobacillus Acidophilus 1 tablet 01/17/18 12:00 01/17/18 17:27 Acidophilus PO 1 tablet BID@1200,1800 SERA Administration Mycophenolate Mofetil 500 mg 01/16/18 21:00 01/18/18 08:36 Cellcept PO 500 mg 0900,2100 SERA Administration Polyethylene Glycol 17 gm 01/17/18 06:00 01/18/18 05:53 Miralax PO 17 gm DAILY SERA Administration Potassium Phos/Sodium Phos 1 packet 01/16/18 17:00 01/18/18 08:37 Neutra-Phos Packet PO 1 packet 4X/DAYCM SERA Administration Rivaroxaban 20 mg 01/16/18 17:00 01/16/18 17:13 Xarelto PO 20 mg DAILY@1700 SERA Administration Senna/Docusate Sodium 1 tablet 01/17/18 06:00 01/18/18 05:52 Senokot-S, Nancy-Colace PO 1 tablet BID SERA Administration Tacrolimus 2 mg 01/16/18 21:00 01/18/18 08:36 Prograf PO 2 mg 0900,2100 SERA Administration Trimethoprim/Sulfamethoxazole 0.5 tablet 01/17/18 08:00 01/18/18 08:36 Bactrim Ds PO 0.5 tablet DAILY@0800 SERA Administration Tuberculin PPD 5 tu 01/24/18 10:00 Tubersol, Aplisol, Ppd ID 01/24/18 10:01 X1 ONE Problem List (Last Reviewed 12/22/17 @ 11:28 by Siria Harp, SUE-C) Urinary tract infection (Acute) Abdominal pain (Acute) Urinary retention (Acute) Chronic kidney disease (Chronic) Mild intellectual disability (Chronic) Vital Signs Temp Pulse Resp BP Pulse Ox 98.6 F 92 18 112/66 95 01/17/18 16:00 01/17/18 21:31 01/17/18 21:31 01/17/18 16:00 01/17/18 21:31 Oxygen Delivery Method Nasal Cannula Weight: 79.107 kg Body Mass Index (BMI) 23.6 Sodium 143 mmol/L (136-145) 01/17/18 05:25 Potassium 4.2 mmol/L (3.5-5.1) 01/17/18 05:25 Chloride 112 mmol/L (98-107) H 01/17/18 05:25 Carbon Dioxide 22.0 mmol/L (21.0-32.0) 01/17/18 05:25 Anion Gap 9 (5-15) 01/17/18 05:25 BUN 18 mg/dL (7-18) 01/17/18 05:25 Creatinine 1.56 mg/dL (0.70-1.30) H 01/17/18 05:25 Est GFR (MDRD) Af Amer 61 mL/min (>60) 01/17/18 05:25 Est GFR (MDRD) Non-Af 50 mL/min (>60) L 01/17/18 05:25 BUN/Creatinine Ratio 11.5 RATIO (10-20) 01/17/18 05:25 Glucose 85 mg/dL (74-106) 01/17/18 05:25 Assessment/Plan: 1) Pain APAP for mild pain. Continue to monitor prn medication use, daily pain scores. 2) Pulm Albuterol inh as needed. Continue to monitor prn medication use, for shortness of breath. 3) HTN Amlodipine. Continue to monitor BP/HR. 4) Recurrent UTI SMX/TMP ppx. Continue to monitor for s/s infection. 5) Kidney Transplant Mycophenolate, tacrolimus. Continue to monitor renal function. 6) GI Famotidine, lactobacillus, Maalox prn. Continue to monitor prn medication use , for s/s GI distress. 7) Nutrition Phos replacement packets. Continue to monitor electrolytes. Psychotropic Medications: None Unnecessary Medications: None Bowel Regimen: 8) Senna/s, PEG, prn bisacodyl. Continue to monitor prn medication use, for constipation/diarrhea. Date of Note:: 01/18/18 - Provider Comments Provider responsibility: Provider responsible to enter orders to implement recommendations <Mikey Rinaldi Chi - Last Filed: 01/18/18 16:59> Progress Note - Pharmacy Subjective: [] Objective: Allergies No Known Allergies Allergy (Verified 12/22/17 11:09) Current Medications Generic Name Dose Route Start Last Admin Trade Name Freq PRN Reason Stop Dose Admin Acetaminophen 1,000 mg 01/16/18 20:31 Tylenol PO Q8H PRN MILD PAIN (1-3/10) Al Hydroxide/Mg Hydroxide 30 ml 01/16/18 14:02 Mylanta Ii PO Q6H PRN PRN Gastric burning Albuterol Sulfate 2.5 mg 01/16/18 14:02 Ventolin Aerosols INHALATION Q4H PRN shortness of breath or wheezing Albuterol Sulfate 2 puff 01/16/18 14:02 Ventolin Hfa (Sp) INHALATION Q4H PRN shortness of breath or wheezin Amlodipine Besylate 5 mg 01/16/18 22:00 01/17/18 20:51 Norvasc PO 5 mg QHS SERA Administration Bisacodyl 10 mg 01/16/18 20:33 01/18/18 12:15 Dulcolax PO 10 mg DAILY PRN Administration Constipation Famotidine 20 mg 01/16/18 18:00 01/18/18 16:34 Pepcid PO 20 mg BID SERA Administration Lactobacillus Acidophilus 1 tablet 01/17/18 12:00 01/18/18 16:34 Acidophilus PO 1 tablet BID@1200,1800 SERA Administration Mycophenolate Mofetil 500 mg 01/16/18 21:00 01/18/18 08:36 Cellcept PO 500 mg 0900,2099 SERA Administration Polyethylene Glycol 17 gm 01/17/18 06:00 01/18/18 05:53 Miralax PO 17 gm DAILY SERA Administration Potassium Phos/Sodium Phos 1 packet 01/16/18 17:00 01/18/18 16:34 Neutra-Phos Packet PO 1 packet 4X/DAYCM SERA Administration Rivaroxaban 20 mg 01/16/18 17:00 01/16/18 17:13 Xarelto PO 20 mg DAILY@1700 SERA Administration Senna/Docusate Sodium 1 tablet 01/17/18 06:00 01/18/18 16:34 Senokot-S, Nancy-Colace PO 1 tablet BID SERA Administration Tacrolimus 2 mg 01/16/18 21:00 01/18/18 08:36 Prograf PO 2 mg 0900,2099 SERA Administration Trimethoprim/Sulfamethoxazole 0.5 tablet 01/17/18 08:00 01/18/18 08:36 Bactrim Ds PO 0.5 tablet DAILY@0800 SERA Administration Tuberculin PPD 5 tu 01/24/18 10:00 Tubersol, Aplisol, Ppd ID 01/24/18 10:01 X1 ONE Problem List (Last Reviewed 12/22/17 @ 11:28 by Siria Harp NP-C) Urinary tract infection (Acute) Abdominal pain (Acute) Urinary retention (Acute) Chronic kidney disease (Chronic) Mild intellectual disability (Chronic) Vital Signs Temp Pulse Resp BP Pulse Ox 98.6 F 95 18 113/72 95 01/18/18 15:56 01/18/18 15:56 01/18/18 15:56 01/18/18 15:56 01/18/18 15:56 Oxygen Delivery Method Room Air Weight: 76.43 kg Body Mass Index (BMI) 23.6 Sodium 143 mmol/L (136-145) 01/17/18 05:25 Potassium 4.2 mmol/L (3.5-5.1) 01/17/18 05:25 Chloride 112 mmol/L (98-107) H 01/17/18 05:25 Carbon Dioxide 22.0 mmol/L (21.0-32.0) 01/17/18 05:25 Anion Gap 9 (5-15) 01/17/18 05:25 BUN 18 mg/dL (7-18) 01/17/18 05:25 Creatinine 1.56 mg/dL (0.70-1.30) H 01/17/18 05:25 Est GFR (MDRD) Af Amer 61 mL/min (>60) 01/17/18 05:25 Est GFR (MDRD) Non-Af 50 mL/min (>60) L 01/17/18 05:25 BUN/Creatinine Ratio 11.5 RATIO (10-20) 01/17/18 05:25 Glucose 85 mg/dL (74-106) 01/17/18 05:25 Assessment/Plan: Psychotropic Medications: Unnecessary Medications: Bowel Regimen: - Provider Comments Provider responsibility: Provider responsible to enter orders to implement recommendations Provider Comments to Recommendations by Pharmacy: Agree
[2018-01-18] MEDS: Bisacodyl 5 MG Tablet 10 MG PO (12:15)
--- NOTE | 2018-01-18 12:16 | NURSING ---
r' still c/o constipation after enema last night. po dulcolax given. will monitor.
[2018-01-18 12:19] LABS: Color, Urine Yellow (Yellow); Glucose, Dipstick Normal (Normal); Ketone-Dipstick Negative (Negative); Leukocyte Esterase-Dipstick 25 /ul (Negative); Nitrite-Dipstick Negative (Negative); Occult Blood-Urine 250 /ul (Negative); Protein-Dipstick 30 mg/dl (Negative); Specific Gravity, Urine 1.015 (1.002-1.030); Urine Bilirubin Dipstick Negative (Negative); Urine Clarity Cloudy (Clear); Urine Urobilinogen Normal (Normal)
[2018-01-18 15:56] VITALS: BP 113/72; PULSE 95; RESP 18; TEMP 37; O2SAT 95
--- NOTE | 2018-01-18 18:09 | NURSING ---
DR MATHUR AWARE OF UA RESULTS. AWAIT URINE CULTURE.
[2018-01-18 21:35] VITALS: PULSE 96; O2SAT 95
--- NOTE | 2018-01-19 04:59 | NURSING ---
Pt straight cathed for 480cc dark yellow urine. Tolerated well. Continuing to monitor, encourage fluids.
[2018-01-19] MEDS: Famotidine 20 MG Tablet PO ×2 (05:55→17:29)
[2018-01-19] MEDS: Senna/Docusate Sodium 1 Tablet PO (05:55)
[2018-01-19] MEDS: Acetaminophen 500 MG Tablet 1000 MG PO (05:57)
[2018-01-19] MEDS: Polyethylene Glycol 3350 17 GM PACKET PO ×2 (05:57→17:30)
[2018-01-19] MEDS: Tacrolimus Anhydrous 1 MG Capsule 2 MG PO ×2 (08:53→20:56)
[2018-01-19] MEDS: Smz/Tmp Ds Tablet 0.5 TABLET PO (08:54)
[2018-01-19] MEDS: Mycophenolate Mofetil 250 MG Capsule 500 MG PO ×2 (08:54→20:56)
[2018-01-19] MEDS: Na Biphos/Potassium Phosphate PACKET 1 PACKET PO ×4 (08:54→20:57)
[2018-01-19 11:08] VITALS: PULSE 102; RESP 18; O2SAT 94
--- NOTE | 2018-01-19 11:32 | NURSING ---
11am Pt st cathed for 300cc tea colored urine. pt refused to assist. Tolerated well. Encouraged pt to drink more fluids. 2% milk & cranberry juice given per pt request
--- NOTE | 2018-01-19 13:09 | NURSING ---
LBM 01/17 small amt after SSE. Pt c/o abd discomfort, more at night. Dr Rinaldi updated, new order to increase senna & miralax
--- NOTE | 2018-01-19 14:58 | NURSING ---
Pt requesting that update be given to pts kidney DR at [facility], DC summary, labs, H&P faxed to Dr Angel office
[2018-01-19 16:00] VITALS: BP 124/77; PULSE 96; RESP 18; TEMP 36.6; O2SAT 97
[2018-01-19] MEDS: Senna/Docusate Sodium 1 Tablet 2 TABLET PO (17:29)
[2018-01-19] MEDS: amLODIPine 5 MG Tablet PO (20:56)
--- NOTE | 2018-01-19 23:00 | NURSING ---
Patient straight cathed at this time for 300 cc of clear lachelle urine. Patient tolerated procedure well.
[2018-01-20] MEDS: Senna/Docusate Sodium 1 Tablet 2 TABLET PO ×2 (05:49→17:09)
[2018-01-20] MEDS: Famotidine 20 MG Tablet PO ×2 (05:49→17:09)
[2018-01-20] MEDS: Polyethylene Glycol 3350 17 GM PACKET PO ×2 (05:51→17:08)
--- NOTE | 2018-01-20 06:04 | NURSING ---
Patient straight cathed at this time for 500 cc of clear lachelle urine. Patient tolerated procedure well.
[2018-01-20] MEDS: Mycophenolate Mofetil 250 MG Capsule 500 MG PO ×2 (08:47→20:46)
[2018-01-20] MEDS: Na Biphos/Potassium Phosphate PACKET 1 PACKET PO ×4 (08:47→20:46)
[2018-01-20] MEDS: Smz/Tmp Ds Tablet 0.5 TABLET PO (08:48)
[2018-01-20] MEDS: Tacrolimus Anhydrous 1 MG Capsule 2 MG PO ×2 (08:48→20:46)
--- NOTE | 2018-01-20 11:05 | NURSING ---
Dr Dennis office notified of consult order for possible suprapubic catheter
--- NOTE | 2018-01-20 12:34 | PCM.CONS.U ---
Problem List (1) Recurrent sepsis due to urinary tract infection Status: Acute Reason for Consult Date of Consultation: 01/20/18 Reason for Consultation: Recurrent UTIs History of Present Illness: The patient is a 52 year old male who has a history of a neurogenic bladder he had a kidney transplant at this point is expected to do self intermittent catheterization but I think at home he has a hard time doing the self-catheterization and he probably needs home health care on a daily basis to help catheterize the patient at home. Here in transitional care unit the nurses have been helping him catheterize himself every 6 hours. I think that he is getting sepsis and infections because he is not able to take care of himself at home and do self-catheterization he probably will need home health care on discharge to help with that. Past Medical History Past Medical History (Chronic Problems): Chronic Problems (Last Reviewed 12/22/17 @ 11:28 by Siria Harp NP-C) Chronic kidney disease (Chronic) Mild intellectual disability (Chronic) Pulmonary embolism (Chronic) Pulmonary infiltrate present on computed tomography (Chronic) CKD (chronic kidney disease), stage III (Chronic) Kidney transplant recipient (Chronic) Congenital nystagmus (Chronic) Mild MRDD (Chronic) DVT (deep venous thrombosis) (Chronic) Renal transplant, status post (Chronic) Neurogenic bladder disorder (Chronic) managed with cic Medical History: Medical History (Last Reviewed 12/22/17 @ 11:28 by Siria Harp NP-C) Right-sided chest pain (Acute) R07.9 Nonproductive cough (Acute) R05 Bronchitis (Acute) J40 Pulmonary embolism (Chronic) I26.99 Chest pain (Acute) R07.9 Pulmonary infiltrate present on computed tomography (Chronic) R91.8 CKD (chronic kidney disease), stage III (Chronic) N18.3 Acute UTI (Acute) N39.0 Kidney transplant recipient (Chronic) Z94.0 Congenital nystagmus (Chronic) H55.01 Mild MRDD (Chronic) DVT (deep venous thrombosis) (Chronic) I82.409 Neurogenic bladder disorder (Chronic) N31.9 managed with cic Allergies No Known Allergies Allergy (Verified 12/22/17 11:09) Home Medications: Ambulatory Orders Medication Instructions Recorded Mycophenolate Mofetil [Cellcept] 500 mg PO 0900,2100 07/14/16 Amlodipine [Norvasc] 5 mg PO QHS 09/29/17 albuterol sulfate 2.5 mg/3 mL 2.5 mg INHALATION Q4H PRN #180 vial 12/15/17 (0.083 %) solution for nebulization albuterol sulfate 90 mcg/actuation 2 puff INHALATION Q4H PRN #1 ea 12/22/17 breath activated powder inhaler Lactobacillus Acidophilus 1 tablet PO BID 01/11/18 [Acidophilus] Ranitidine [Zantac] 150 mg PO BID 01/11/18 Rivaroxaban [Xarelto] 20 mg PO DAILY 01/11/18 Sulfamethoxazole/Trimethoprim 1 tab PO DAILY 01/11/18 [Sulfamethoxazole-Tmp Ss Tablet] Tacrolimus Anhydrous [Prograf] 2 mg PO 0900,2100 01/11/18 Loperamide [Imodium] 2 mg PO Q2H PRN PRN capsule 01/16/18 Mag Hydrox/Al Hydrox/Simeth 30 ml PO Q6H PRN PRN udc 01/16/18 [Mylanta II] Na Biphos/Potassium Phosphate 1 packet PO 4X/DAYCM 01/16/18 [Neutra-Phos Packet] Surgical History: Surgical History (Last Reviewed 12/22/17 @ 11:28 by Siria Harp NP-C) Renal transplant, status post (Chronic) Z94.0 Surgical History: - - Right kidney transplant , dialysis access prior, Right upper extremity fistula. Psychiatric History: No pertinent psych hx, - - MRDD Lives: Alone Smoking Status: Never smoker Tobacco Use: Non-smoker Alcohol: None Drugs: None - *Family History Maternal History Items: Hypertension Paternal History Items: Diabetes Review of Systems Constitutional: Denies: Chills, Fever, Weight Change HEENT: Denies: Head Aches, Sinus Congestion, Sinus Drainage Cardiovascular: Denies: Chest Pain, Palpitations Respiratory: Denies: Cough, Shortness of breath at rest, Sputum production Gastrointestinal: Denies: Abdominal Pain, Nausea, Vomiting Genitourinary: Denies: Dysuria Musculoskeletal: Denies: Joint Pain, Joint Tenderness Skin: Denies: Rash, Wounds Neurological: Denies: Numbness, Tingling, Focal weakness Psychiatric: Denies: Anxiety, Depression, Homicidal Ideations, Suicidal Ideations Hematologic/ Lymphatic: Denies: Easy Bruising, Easy Bleeding Physical Exam - Physical Exam Vital Signs Temp 97.9 F 01/19/18 16:00 Pulse 96 01/19/18 16:00 Resp 18 01/19/18 16:00 BP 124/77 H 01/19/18 16:00 Pulse Ox 97 01/19/18 16:00 Intake & Output 01/18/18 01/19/18 01/20/18 23:59 23:59 23:59 Intake Total 840 / 840 720 / 720 120 / 120 Output Total 1900 / 1900 1430 / 1430 500 / 500 Balance -1060 / -1060 -710 / -710 -380 / -380 Weight: 76.43 kg 76.43 kg Intake: Oral 840 / 840 720 / 720 120 / 120 Output: Urine 1900 / 1900 1430 / 1430 500 / 500 General: Alert, Oriented x3 HEENT: Atraumatic Neck: Supple Lungs: Normal air movement Cardiovascular: Regular rate Microbiology Past 72 Hours 01/18/18 12:00 Urine Culture - Preliminary Urine, Catheterized Culture exhibits no growth. Assessment/Plan All Active Problems (Last Reviewed 12/22/17 @ 11:28 by Siria Harp, BLOOD OR BLOOD BANK TECHNICIAN-C) Sepsis (Acute) PRISCILLA (acute kidney injury) (Acute) Urinary tract infection (Acute) Abdominal pain (Acute) Urinary retention (Acute) Recurrent sepsis due to urinary tract infection (Acute) Right-sided chest pain (Acute) Nonproductive cough (Acute) Bronchitis (Acute) Chest pain (Acute) Acute UTI (Acute) 52-year-old male with a history of kidney transplant neurogenic bladder is a large distended bladder the reason why he is getting infections because he is not able to self catheterize at home in a routine fashion like he should be doing he needs additional help he has obvious mental handicap and has debility in terms of understanding how to do self management and self catheter management so he will need home health care to help him on a daily basis to do catheter. Probably would recommend home care come out to see him once a day just to make sure he catheterizes himself at least once a day properly. Until this is done probably could expect this patient end up in the hospital multiple times over and over with infections. He can follow-up in my office as planned.
--- NOTE | 2018-01-20 15:39 | CASEMGMT ---
Plan of care meeting held on this date with pt, mother, sister and brother in attendance. No d/c date set at this time. Pt making progress with therapy. Will continue with treatment plan on transitional care unit at this time. Family is very involved in pt care. SW will continue to follow. AHMET Hernandez
[2018-01-20 16:00] VITALS: BP 103/60; PULSE 92; RESP 18; TEMP 37.1; O2SAT 97
[2018-01-20] MEDS: amLODIPine 5 MG Tablet PO (20:46)
[2018-01-21 05:45] LABS: Absolute Lymphocyte Count 0.99 X10^3/ul (0.83-4.51); Basophil# 0.05 X10^3/uL; Basophil% 1.3 % (0-1); Eosinophil# 0.29 X10^3/uL; Eosinophils% 7.4 % (0-5); Hematocrit 35.1 % (40-54); Hemoglobin 10.9 g/dl (13.0-16.5); Lymphocyte # 0.99 X10^3/ul (4.0); Lymphocyte % 25.4 % (19-41); Mean Corp Hgb Conc 31.1 g/gl (32-36); Mean Corpuscular Hgb 26.8 pg (27.0-32.0); Mean Corpuscular Volume 86.2 fL (80-94); Mean Platelet Vol. 9.8 fl (6.2-12.0); Monocyte# 0.57 X10^3/uL; Monocyte% 14.6 % (0-10); Neutrophil # 1.97 X10^3/uL (2.7-7.7); Neutrophil % 50.5 % (47-70); Platelet Count 342 K/mm3 (150-450); RBC Distribution Width CV 15.4 % (11.6-14.6); RBC Distribution Width SD 47.9 fl (35.1-43.9); Red Blood Count 4.07 M/mm3 (4.6-6.2); White Blood Count 3.9 K/mm3 (4.4-11.0)
[2018-01-21 05:51] LABS: Albumin, Serum 3.1 g/dL (3.2-5.0); BUN 27 mg/dL (7-18); BUN/Creat Ratio 15.9 RATIO (10-20); Calcium,Total 8.2 mg/dL (8.5-10.1); Chloride 110 mmol/L (98-107); EST Glomerular Filtration Rate 45 mL/min (>60); Est Glom Filt Rate - Afr Amer 55 mL/min (>60); Glucose 89 mg/dL (74-106); Potassium 4.6 mmol/L (3.5-5.1); Sodium Level 142 mmol/L (136-145)
[2018-01-21 05:53] LABS: POSITIVE COUNT NO; POSITIVE DIFFERENTIAL NO; POSITIVE MORPHOLOGY NO
[2018-01-21] MEDS: Senna/Docusate Sodium 1 Tablet 2 TABLET PO (06:03)
[2018-01-21] MEDS: Famotidine 20 MG Tablet PO ×2 (06:03→16:17)
[2018-01-21] MEDS: Polyethylene Glycol 3350 17 GM PACKET PO (06:03)
[2018-01-21] MEDS: Mycophenolate Mofetil 250 MG Capsule 500 MG PO ×2 (09:14→20:47)
[2018-01-21] MEDS: Smz/Tmp Ds Tablet 0.5 TABLET PO (09:14)
[2018-01-21] MEDS: Na Biphos/Potassium Phosphate PACKET 1 PACKET PO ×4 (09:15→20:48)
[2018-01-21] MEDS: Tacrolimus Anhydrous 1 MG Capsule 2 MG PO ×2 (09:15→20:48)
[2018-01-21] MEDS: Acetaminophen 500 MG Tablet 1000 MG PO (12:22)
--- NOTE | 2018-01-21 12:44 | NURSING ---
Complaining of lower abdominal pain for the past couple days. Gets worse with physical therapy. Straight cathed for 400 ml of clear yellow, nonodorous urine. No relief from pain after straight cathed. Reports having a BM today. Has an appetite and wants to eat his lunch after being straight cathed. Tylenol given for pain relief. Will update Dr Rinaldi in regards to this.
[2018-01-21 15:17] VITALS: BP 114/70; PULSE 91; RESP 16; TEMP 36.9; O2SAT 96
--- NOTE | 2018-01-21 15:36 | MDS.RN ---
Pain interview for MARY 01/23/18 completed.
[2018-01-21] MEDS: Rivaroxaban 20 MG Tablet PO (16:16)
--- NOTE | 2018-01-21 17:07 | CASEMGMT ---
BIMS and PHQ9 interview for MDS assessment completed on this date. BIMS score 03/17, PHQ9 score08/27 AHMET Powell
[2018-01-21] MEDS: amLODIPine 5 MG Tablet PO (20:49)
[2018-01-21 21:00] VITALS: O2SAT 97
--- NOTE | 2018-01-22 00:20 | NURSING ---
Pt straight cathed for 700cc for clear, brown tinged urine with some sediment, no odor present. Pt tolerated procedure well, very talkative.
--- NOTE | 2018-01-22 05:56 | NURSING ---
Pt straight cathed at this time for 600cc of brown tinged urine. Pt tolerated procedure well.
[2018-01-22] MEDS: Polyethylene Glycol 3350 17 GM PACKET PO (05:57)
[2018-01-22] MEDS: Famotidine 20 MG Tablet PO ×2 (05:57→16:58)
[2018-01-22] MEDS: Senna/Docusate Sodium 1 Tablet 2 TABLET PO (05:57)
[2018-01-22] MEDS: Smz/Tmp Ds Tablet 0.5 TABLET PO (09:21)
[2018-01-22] MEDS: Na Biphos/Potassium Phosphate PACKET 1 PACKET PO ×4 (09:21→20:37)
[2018-01-22] MEDS: Tacrolimus Anhydrous 1 MG Capsule 2 MG PO ×2 (09:21→20:37)
[2018-01-22] MEDS: Mycophenolate Mofetil 250 MG Capsule 500 MG PO ×2 (09:21→20:38)
--- NOTE | 2018-01-22 12:36 | NURSING ---
Addendum entered by Bharti Lucio 01/22/18 17:21: Dr. Rinaldi reviewed KUB, N.O. received, pt and mother updated. Original Note: Pt continues to complain of abd pain, stating he has had several bowel movements of diarrhea this morning, aides reporting blood in stool to this nurse. Dr. Rinaldi updated, N.O. for KUB, pt updated.
--- NOTE | 2018-01-22 13:40 | RAD_ITS ---
STUDY: X-RAY - ABDOMEN/PELVIS REASON FOR EXAM: Male, 52 years old. History of renal transplant. Diarrhea. TECHNIQUE: Single AP view of the abdomen / pelvis. COMPARISON: January 16, 2018 FINDINGS: Normal visualized lung bases. There is an unremarkable bowel gas pattern. There is no demonstrated free abdominal air. The visualized liver, spleen and kidneys are grossly normal in size and morphology. There are stable clips on the right side of the pelvis from the renal transplant. Normal visualized osseous structures. RAD/Abdomen Single View IMPRESSION: No acute pathology of the abdomen or pelvis. Electronically Signed: Sean Rojas MD at 18:14 EDT , Service support ,
[2018-01-22 15:17] VITALS: BP 126/74; PULSE 91; RESP 18; TEMP 36.8; O2SAT 96
[2018-01-22] MEDS: Rivaroxaban 20 MG Tablet PO (16:58)
[2018-01-22] MEDS: Acetaminophen 500 MG Tablet 1000 MG PO (18:29)
[2018-01-22] MEDS: amLODIPine 5 MG Tablet PO (20:39)
[2018-01-23] MEDS: Senna/Docusate Sodium 1 Tablet 2 TABLET PO ×2 (05:54→18:24)
[2018-01-23] MEDS: Famotidine 20 MG Tablet PO ×2 (05:54→18:21)
[2018-01-23] MEDS: Polyethylene Glycol 3350 17 GM PACKET PO ×2 (05:54→18:21)
[2018-01-23] MEDS: Na Biphos/Potassium Phosphate PACKET 1 PACKET PO ×4 (08:40→20:48)
[2018-01-23] MEDS: Mycophenolate Mofetil 250 MG Capsule 500 MG PO ×2 (08:41→20:49)
[2018-01-23] MEDS: Tacrolimus Anhydrous 1 MG Capsule 2 MG PO ×2 (08:41→20:48)
[2018-01-23] MEDS: Smz/Tmp Ds Tablet 0.5 TABLET PO (08:42)
[2018-01-23] MEDS: Acetaminophen 500 MG Tablet 1000 MG PO (11:59)
--- NOTE | 2018-01-23 12:54 | NURSING ---
pt felt he did not fully empty bladder, bladder scan with straight cath still intact 340ml still in bladder, pt stood wth straight cath intact and asked to cough, put out 100 more
[2018-01-23 16:00] VITALS: BP 136/82; PULSE 90; RESP 18; TEMP 37.1; O2SAT 95
[2018-01-23] MEDS: Rivaroxaban 20 MG Tablet PO (18:21)
--- NOTE | 2018-01-23 18:59 | NURSING ---
pt straight cath'd and bladder was emptied. urine was a dark cloudy yellow until end of cath. pt coughed and moved and very dark tea colored urine with a strong scent was produced.
[2018-01-23 19:07] LABS: Bacteria 0 SEEN /hpf (None Seen); Mucous, Urine 0 SEEN /hpf (<or=2+)
[2018-01-23 19:09] LABS: Color, Urine Yellow (Yellow); Glucose, Dipstick Normal (Normal); Ketone-Dipstick Negative (Negative); Leukocyte Esterase-Dipstick 100 /ul (Negative); Nitrite-Dipstick Negative (Negative); Occult Blood-Urine 250 /ul (Negative); Protein-Dipstick 100 mg/dl (Negative); Specific Gravity, Urine 1.015 (1.002-1.030); Urine Bilirubin Dipstick Negative (Negative); Urine Clarity Cloudy (Clear); Urine Urobilinogen Normal (Normal); Urine pH 6.5 (5.0 - 8.0)
[2018-01-23 19:16] LABS: Red Blood Cells-Urine > 100 SEEN /hpf (0-5); Squamous Epithelial Cells - UA 10-25 SEEN /hpf (0-5); White Blood Cells >100 SEEN /hpf (0-5)
--- NOTE | 2018-01-23 20:21 | NURSING ---
Dr. Rinaldi notified of urine results. Order given to wait culture and sensitivity.
[2018-01-23] MEDS: amLODIPine 5 MG Tablet PO (20:49)
--- NOTE | 2018-01-23 23:19 | NURSING ---
Patient straight cathed at this time. 275 cc of dark tea color urine was produced.
[2018-01-24] MEDS: Electrolyte Solution/Peg's 4000 ML 2000 ML PO (06:15)
[2018-01-24 06:18] LABS: Absolute Lymphocyte Count 1.01 X10^3/ul (0.83-4.51); Absolute Neutrophil Count 3.8 X10^3/uL (2.0-7.7); Basophil# 0.03 X10^3/uL; Basophil% 0.5 % (0-1); Eosinophils% 3.3 % (0-5); Hematocrit 35.6 % (40-54); Hemoglobin 11.1 g/dl (13.0-16.5); Lymphocyte # 1.01 X10^3/ul (4.0); Lymphocyte % 16.9 % (19-41); Mean Corp Hgb Conc 31.2 g/gl (32-36); Mean Corpuscular Hgb 26.9 pg (27.0-32.0); Mean Corpuscular Volume 86.4 fL (80-94); Mean Platelet Vol. 10.3 fl (6.2-12.0); Monocyte# 0.93 X10^3/uL; Monocyte% 15.5 % (0-10); Neutrophil % 63.5 % (47-70); Platelet Count 280 K/mm3 (150-450); RBC Distribution Width CV 15.5 % (11.6-14.6); Red Blood Count 4.12 M/mm3 (4.6-6.2)
[2018-01-24 06:19] LABS: Anion Gap 7 (5-15); BUN 22 mg/dL (7-18); BUN/Creat Ratio 13.8 RATIO (10-20); Calcium,Total 8.3 mg/dL (8.5-10.1); Chloride 111 mmol/L (98-107); EST Glomerular Filtration Rate 49 mL/min (>60); Est Glom Filt Rate - Afr Amer 59 mL/min (>60); Estimated Creatinine Clearance 59.71 ml/min; Glucose 88 mg/dL (74-106); PSA,Total- Diagnostic 1.97 ng/mL (0.0-4.0); Potassium 4.5 mmol/L (3.5-5.1); Sodium Level 143 mmol/L (136-145)
[2018-01-24] MEDS: Senna/Docusate Sodium 1 Tablet 2 TABLET PO ×2 (06:20→18:01)
[2018-01-24] MEDS: Famotidine 20 MG Tablet PO ×2 (06:20→18:01)
[2018-01-24] MEDS: Polyethylene Glycol 3350 17 GM PACKET PO ×2 (06:20→18:00)
--- NOTE | 2018-01-24 06:33 | NURSING ---
Addendum entered by Flores Pinzon 01/24/18 06:44: After straight cathed, patient bladder scanned for 152 Original Note: Patient straight cathed at this time for 450 cc of clear lachelle urine, towards the end urine became dark tea color.
[2018-01-24 06:35] LABS: POSITIVE COUNT NO; POSITIVE DIFFERENTIAL NO; POSITIVE MORPHOLOGY NO
[2018-01-24] MEDS: Smz/Tmp Ds Tablet 0.5 TABLET PO (08:40)
[2018-01-24] MEDS: Tacrolimus Anhydrous 1 MG Capsule 2 MG PO ×2 (08:41→20:49)
[2018-01-24] MEDS: Na Biphos/Potassium Phosphate PACKET 1 PACKET PO ×4 (08:41→20:49)
[2018-01-24] MEDS: Mycophenolate Mofetil 250 MG Capsule 500 MG PO ×2 (08:41→20:49)
[2018-01-24 11:11] LABS: Tacrolimus (FK506) 6.4 ng/mL (2.0-20.0)
[2018-01-24] MEDS: Tuberculin,Purif.prot.deriv. 50 TU/ML Vial 5 ML ID (12:14)
--- NOTE | 2018-01-24 12:39 | NURSING ---
Straight cathed at this time. Pressure applied to abdomen to get more urine. Urine lachelle colored.Clara ALAMO aware. Bladder scanned after straight cathing for 49 ml.
--- NOTE | 2018-01-24 12:43 | NURSING ---
resting in bed. Continues to complain of lower abdominal pain but refuses offer of pain medication at this time. SCDS on while in bed.
--- NOTE | 2018-01-24 13:37 | NURSING ---
Dr Dennis to be up tomorrow to see pt regarding possible suprapubic cath placment.
[2018-01-24 15:41] VITALS: BP 122/72; PULSE 97; RESP 20; TEMP 36.5; O2SAT 96
[2018-01-24] MEDS: Rivaroxaban 20 MG Tablet PO (18:00)
--- NOTE | 2018-01-24 18:17 | NURSING ---
dr metzger reviewed urine culture prelim results, new order for amoxicillin.
[2018-01-24] MEDS: AMOXICILLIN 500 MG CAPSULE PO (20:49)
[2018-01-24] MEDS: amLODIPine 5 MG Tablet PO (20:49)
--- NOTE | 2018-01-24 23:10 | NURSING ---
Pt straight cathed at this time for 450ml. Pt tolerated well.
--- NOTE | 2018-01-25 05:45 | NURSING ---
Pt straight cathed for 400ml. Tolerated well.
[2018-01-25] MEDS: AMOXICILLIN 500 MG CAPSULE PO ×3 (06:01→21:02)
[2018-01-25] MEDS: Famotidine 20 MG Tablet PO ×2 (06:01→17:56)
[2018-01-25] MEDS: Senna/Docusate Sodium 1 Tablet 2 TABLET PO ×2 (06:01→17:55)
[2018-01-25] MEDS: Polyethylene Glycol 3350 17 GM PACKET PO ×2 (06:01→17:56)
--- NOTE | 2018-01-25 07:45 | PCM.PN.BLA ---
Progress Note chronic sp tube will cause more infections pt was able to do self cath?? in the past. needs home health care for this mentally handicap individual?
--- NOTE | 2018-01-25 08:06 | NURSING ---
Dr granda in to see pt this AM, No need for suprapubic cath, feels pt at risk for more infections. KANDACE Campos RN updated brother.
[2018-01-25] MEDS: Tacrolimus Anhydrous 1 MG Capsule 2 MG PO ×2 (09:10→21:02)
[2018-01-25] MEDS: Smz/Tmp Ds Tablet 0.5 TABLET PO (09:10)
[2018-01-25] MEDS: Mycophenolate Mofetil 250 MG Capsule 500 MG PO ×2 (09:10→21:02)
[2018-01-25] MEDS: Na Biphos/Potassium Phosphate PACKET 1 PACKET PO ×4 (09:11→21:01)
--- NOTE | 2018-01-25 09:17 | NURSING ---
Explained to pt that Dr Dennis is not recommending a suprapubic catheter and wanting pt to begin st cath self as previously. Pt stated can someone help me this nurse expressed that nursing staff will be with him to be sure he is doing it properly & if extra hands needed we will assist. Pt verbalized understanding.
--- NOTE | 2018-01-25 14:05 | NURSING ---
Addendum entered by Clara Garcia 01/25/18 18:06: updated KARIS dinh on new order Original Note: Addendum entered by Clara Garcia 01/25/18 16:28: new order to change xarelto to eliquis to reduce bleeding risk. monitor for improvement in urine Original Note: Pt st cathed for 500cc dark tea color urine. no carlos/bright red blood or clots noted. Will update Dr Rinaldi.
--- NOTE | 2018-01-25 14:07 | MDS.RN ---
Information for the mds was obtained from review of the clinical record, interview of resident, staff, and direct observation of resident's care.
--- NOTE | 2018-01-25 15:23 | CASEMGMT ---
Social Work Spoke with resident in room. This social welfare administrator communicating to resident that discharge date has been set for 01/29/18. Resident is unsure about discharge date due to urinary retention and self catheterization. Nursing staff has been working with resident on self catheterization training and resident was self catheterizing prior to hospitalization. Resident aware of appeal process and requesting for this social welfare administrator to contact resident sister, Chandrakant or resident brother, Joseph in regards to discharge date/plan. Telephone call to Chandrakant, Chandrakant reporting to not be handling things right now and that Alejo is the one to be calling. Telephone call to Joseph, voicemail left. Will continue to follow as needed. Proposed discharge date: 01/29/18 PLAN: Undetermined at this time. Home vs. Assisted Living. Jes LEO, CENTER MEDICAL AND LAB DIRECTOR
[2018-01-25 16:00] VITALS: BP 130/79; PULSE 103; RESP 20; TEMP 36.9; O2SAT 96
--- NOTE | 2018-01-25 17:29 | DCINST_ITS ---
- Discharge Diagnoses Current Active Problems: Current Active and Chronic Problems (Last Reviewed 12/22/17 @ 11:28 by JASS Hull) Urinary tract infection (Acute) Abdominal pain (Acute) Urinary retention (Acute) Chronic kidney disease (Chronic) Mild intellectual disability (Chronic) Recurrent sepsis due to urinary tract infection (Acute) You will use the following diet at home:: No restrictions, Regular Your food should be the consistency of: Regular Your liquids should be the consistency of: Regular/Thin Discharge Activity: Return to Normal Activity, May Shower, Use Walker Weight Bearing Status: Weight bearing as tolerated Call your doctor if you observe: Fever of 101 or Higher, Inability to urinate, Inability to have a bowel movement, Shortness of breath, Chest pain, Unc ontrolled pain Allergies/Adverse Reactions: Allergies No Known Allergies Allergy (Verified 12/22/17 11:09) Medications to take at Discharge Mycophenolate Mofetil [Cellcept] 500 mg PO 0900,209907/14/16 Amlodipine [Norvasc] 5 mg PO QHS 09/29/17 albuterol sulfate 2.5 mg/3 mL (0.083 %) solution for nebulization 2.5 mg INHALATION Q4H PRN #180 vial 12/15/17 albuterol sulfate 90 mcg/actuation breath activated powder inhaler 2 puff INHALATION Q4H PRN #1 ea 12/22/17 Lactobacillus Acidophilus [Acidophilus] 1 tablet PO BID 01/11/18 Ranitidine [Zantac] 150 mg PO BID 01/11/18 Sulfamethoxazole/Trimethoprim [Sulfamethoxazole-Tmp Ss Tablet] 1 tab PO DAILY 01/11/18 Tacrolimus Anhydrous [Prograf] 2 mg PO 0900,209901/11/18 Acetaminophen [Tylenol] 1,000 mg PO Q8H PRN tablet 01/25/18 Amoxicillin [Amoxil] 500 mg PO Q8 #18 capsule 01/25/18 Apixaban [Eliquis] 2.5 mg PO BID #60 tablet 01/25/18 Na Biphos/Potassium Phosphate [Neutra-Phos Packet] 1 packet PO 4X/DAYCM #120 packet 01/25/18 Polyethylene Glycol 3350 [Miralax] 17 gm PO BID #60 packet 01/25/18 Senna/Docusate Sodium [Senokot-S] 2 tablet PO BID #120 tablet 01/25/18 The following prescriptions were given: Amoxicillin [Amoxil] 500 mg PO Q8 #18 capsule Apixaban [Eliquis] 2.5 mg PO BID #60 tablet Polyethylene Glycol 3350 [Miralax] 17 gm PO BID #60 packet Senna/Docusate Sodium [Senokot-S] 2 tablet PO BID #120 tablet Na Biphos/Potassium Phosphate [Neutra-Phos Packet] 1 packet PO 4X/DAYCM #120 packet Primary Care Physician: Mike Bella MD [Primary Care Provider] - Please follow up with your Primary Care Physician in: 1 week. Test Results: Test results from this visit will be discussed in further detail at your follow- up appointment, if applicable. Please Follow Up With: Nakul Dennis MD When: 2 weeks. Please Follow Up With: transplant team When: 2 weeks. Proposed Discharge Date: 01/29/18
--- NOTE | 2018-01-25 17:34 | DS.PCM_ITS ---
Discharge Date and Diagnosis - Problem List Patient Problems: Active and Suspected Problems (Last Reviewed 12/22/17 @ 11:28 by JASS Hull) Urinary tract infection (Acute) Abdominal pain (Acute) Urinary retention (Acute) Recurrent sepsis due to urinary tract infection (Acute) Date of Admission: 01/16/18 Date of Discharge: 01/29/18 - Primary Discharge Diagnosis Active and Suspected Problems (Last Reviewed 12/22/17 @ 11:28 by JASS Hull) Urinary tract infection (Acute) Abdominal pain (Acute) Urinary retention (Acute) Recurrent sepsis due to urinary tract infection (Acute) - Secondary Discharge Diagnosis Chronic Problems (Last Reviewed 12/22/17 @ 11:28 by JASS Hull) Chronic kidney disease (Chronic) Mild intellectual disability (Chronic) Pulmonary embolism (Chronic) Pulmonary infiltrate present on computed tomography (Chronic) CKD (chronic kidney disease), stage III (Chronic) Kidney transplant recipient (Chronic) Congenital nystagmus (Chronic) Mild MRDD (Chronic) DVT (deep venous thrombosis) (Chronic) Renal transplant, status post (Chronic) Neurogenic bladder disorder (Chronic) managed with cic Hospital Course and Treatment Imaging Results: 01/19/18 14:10 Diet: Regular Diet Is pt able to select menu?: Yes Diet Comments: needs to be up with all meals Clinical Impression(s) from Imaging Studies KUB X-Ray 01/22/18 13:40 IMPRESSION: No acute pathology of the abdomen or pelvis. Electronically Signed: Sean Rojas MD at 18:14 EDT , Service support , Labs (Last 48 Hours) 01/21/18 01/23/18 01/24/18 05:20 18:55 05:30 WBC 6.0 RBC 4.12 L Hgb 11.1 L Hct 35.6 L MCV 86.4 MCH 26.9 L MCHC 31.2 L RDW 15.5 H RDW Differential 48.0 H Plt Count 280 MPV 10.3 Immature Gran % (Auto) 0.300 Neut % (Auto) 63.5 Lymph % (Auto) 16.9 L [place] % (Auto) 15.5 H Eos % (Auto) 3.3 Baso % (Auto) 0.5 Absolute Neuts (auto) 3.8 Absolute Lymphs (auto) 1.01 Total Counted Not Reportable Sodium Potassium Chloride Carbon Dioxide Anion Gap BUN Creatinine Estim Creat Clear Calc Est GFR (MDRD) Af Amer Est GFR (MDRD) Non-Af BUN/Creatinine Ratio Glucose Calcium Total PSA Urine Color Yellow Urine Clarity Cloudy Urine pH 6.5 Ur Specific [place] 1.015 Urine Protein 100 H Urine Glucose (UA) Normal Urine Ketones Negative Urine Occult Blood 250 H Urine Nitrite Negative Urine Bilirubin Negative Urine Urobilinogen Normal Ur Leukocyte Esterase 100 H Urine RBC > 100 SEEN Urine WBC >100 SEEN Ur Squamous Epith Cells 10-25 SEEN Urine Bacteria 0 SEEN Urine Mucus 0 SEEN Tacrolimus 6.4 01/24/18 05:30 WBC RBC Hgb Hct MCV MCH MCHC RDW RDW Differential Plt Count MPV Immature Gran % (Auto) Neut % (Auto) Lymph % (Auto) [place] % (Auto) Eos % (Auto) Baso % (Auto) Absolute Neuts (auto) Absolute Lymphs (auto) Total Counted Sodium 143 Potassium 4.5 Chloride 111 H Carbon Dioxide 25.0 Anion Gap 7 BUN 22 H Creatinine 1.60 H Estim Creat Clear Calc 59.71 Est GFR (MDRD) Af Amer 59 L Est GFR (MDRD) Non-Af 49 L BUN/Creatinine Ratio 13.8 Glucose 88 Calcium 8.3 L Total PSA 1.97 Urine Color Urine Clarity Urine pH Ur Specific [place] Urine Protein Urine Glucose (UA) Urine Ketones Urine Occult Blood Urine Nitrite Urine Bilirubin Urine Urobilinogen Ur Leukocyte Esterase Urine RBC Urine WBC Ur Squamous Epith Cells Urine Bacteria Urine Mucus Tacrolimus Microbiology 01/23/18 18:55 Urine, Catheterized Urine Culture - Preliminary GPC Poss Enterococcus sp Operations: None Procedures: None Summary of Care Provided: The patient is a 52 year old Male with below past medical history hospitalized for sepsis secondary to urinary tract infection, cultures negative, only on prophylactic antibiotic, admitted to TCU with debility, here for rehabilitation, strengthening, [facility] Urine culture grew GPC possible enterococcus, discharge on Amoxicillin to finish 10 day course, final urine culture results pending. Resident has urinary retention secondary to neurogenic bladder, prior to admission, Skyler lived independently and performed intermittent self catheterization. It is my opinion Skyler is unable to perform intermittent self catheterization adequately, if he lives in assisted living, he can have intermittent straight cath performed by the nursing staff, but if he goes home, consider alternatives like indwelling harman catheter versus suprapubic catheter. Of note, Skyler's kidney function is dependent on the transplant kidney in his right pelvis. Discharge to [facility]. Discharge Diet: No Restrictions Discharge Activity: Return to Normal Activity, May Shower, Use Walker Weight Bearing Status: Weight bearing as tolerated Call your doctor if you observe: Fever of 101 or Higher, Inability to urinate, Inability to have a bowel movement, Shortness of breath, Chest pain, Uncontrolled pain Home Medications: Medications to take at Discharge Mycophenolate Mofetil [Cellcept] 500 mg PO 0900,209907/14/16 Amlodipine [Norvasc] 5 mg PO QHS 09/29/17 albuterol sulfate 2.5 mg/3 mL (0.083 %) solution for nebulization 2.5 mg INHALATION Q4H PRN #180 vial 12/15/17 albuterol sulfate 90 mcg/actuation breath activated powder inhaler 2 puff INHALATION Q4H PRN #1 ea 12/22/17 Lactobacillus Acidophilus [Acidophilus] 1 tablet PO BID 01/11/18 Ranitidine [Zantac] 150 mg PO BID 01/11/18 Sulfamethoxazole/Trimethoprim [Sulfamethoxazole-Tmp Ss Tablet] 1 tab PO DAILY 01/11/18 Tacrolimus Anhydrous [Prograf] 2 mg PO 0900,209901/11/18 Acetaminophen [Tylenol] 1,000 mg PO Q8H PRN tablet 01/25/18 Amoxicillin [Amoxil] 500 mg PO Q8 #18 capsule 01/25/18 Apixaban [Eliquis] 2.5 mg PO BID #60 tablet 01/25/18 Na Biphos/Potassium Phosphate [Neutra-Phos Packet] 1 packet PO 4X/DAYCM #120 packet 01/25/18 Polyethylene Glycol 3350 [Miralax] 17 gm PO BID #60 packet 01/25/18 Senna/Docusate Sodium [Senokot-S] 2 tablet PO BID #120 tablet 01/25/18 Following Prescrptions Were Given to Patient: Amoxicillin [Amoxil] 500 mg PO Q8 #18 capsule Apixaban [Eliquis] 2.5 mg PO BID #60 tablet Polyethylene Glycol 3350 [Miralax] 17 gm PO BID #60 packet Senna/Docusate Sodium [Senokot-S] 2 tablet PO BID #120 tablet Na Biphos/Potassium Phosphate [Neutra-Phos Packet] 1 packet PO 4X/DAYCM #120 packet Primary Care Physician: Mike Bella MD [Primary Care Provider] - Please follow up with your Primary Care Physician in: 1 week. Please Follow Up With: Nakul Dennis MD When: 2 weeks. Please Follow Up With: transplant team When: 2 weeks. Disposition: Asstd Living/Non-Skill NH Minutes spent on discharge:: 35 Patient Condition:: Stable Medical Necessity - Tobacco Use Smoking Status: Never smoker Tobacco Use: Non-smoker Meaningful Use Info Meaningful Use Diagnoses (Choose all that apply): None applicable
--- NOTE | 2018-01-25 20:39 | NURSING ---
Pt complaint of abd pain. Abd distended and firm. No BM since 01/20 charted and pt unsure when his last BM. Dr. Rinaldi updated. New orders entered.
[2018-01-25] MEDS: amLODIPine 5 MG Tablet PO (21:01)
[2018-01-25] MEDS: APIXABAN 2.5 MG TABLET PO (21:02)
[2018-01-25] MEDS: Lactulose 20 GM/30 ML UDC 30 GM PO (21:51)
[2018-01-26] MEDS: Polyethylene Glycol 3350 17 GM PACKET PO ×2 (06:27→17:04)
[2018-01-26] MEDS: Senna/Docusate Sodium 1 Tablet 2 TABLET PO ×2 (06:27→17:04)
[2018-01-26] MEDS: APIXABAN 2.5 MG TABLET PO ×2 (06:28→17:05)
[2018-01-26] MEDS: AMOXICILLIN 500 MG CAPSULE PO ×3 (06:28→20:52)
[2018-01-26] MEDS: Famotidine 20 MG Tablet PO ×2 (06:28→17:04)
[2018-01-26] MEDS: Bisacodyl 5 MG Tablet 10 MG PO (06:31)
[2018-01-26] MEDS: Smz/Tmp Ds Tablet 0.5 TABLET PO (09:18)
[2018-01-26] MEDS: Na Biphos/Potassium Phosphate PACKET 1 PACKET PO ×4 (09:18→20:52)
[2018-01-26] MEDS: Tacrolimus Anhydrous 1 MG Capsule 2 MG PO ×2 (09:19→20:51)
[2018-01-26] MEDS: Mycophenolate Mofetil 250 MG Capsule 500 MG PO ×2 (09:19→20:51)
--- NOTE | 2018-01-26 11:20 | RAD_ITS ---
STUDY: X-RAY - ABDOMEN/PELVIS REASON FOR EXAM: Male, 52 years old. Mid abdominal pain and constipation. TECHNIQUE: AP supine and upright views of the abdomen and pelvis. COMPARISON: Comparison is made with prior study dated January 22, 2018. FINDINGS: Normal visualized lung bases. There is an abundance of fecal material throughout the colon. Dilated small bowel loops most likely secondary to the constipation. There is no demonstrated free abdominal air. Surgical clips are seen in the right lower quadrant. Patient has a history of right renal transplant. Normal soft tissue structures. Normal visualized osseous structures. RAD/Abd Inc Decub and/or Erect IMPRESSION: Large amount of fecal material is seen throughout the colon with dilated small bowel. Electronically Signed: Manolo Julian MD at 12:56 EDT Tel [phone], Service support ,
--- NOTE | 2018-01-26 11:40 | NURSING ---
Dr. Rinaldi reviewed KUB and final urine culture, NO to give soap suds enema x1 and consult Dr. Santos for positive ruine culture.
[2018-01-26] MEDS: Lactulose 20 GM/30 ML UDC 30 GM PO (12:35)
[2018-01-26 16:00] VITALS: BP 142/85; PULSE 96; RESP 18; TEMP 37.1; O2SAT 94
--- NOTE | 2018-01-26 16:35 | CASEMGMT ---
Social Work After several attempts to contact resident brotherAlejo Greg contacted this social media content manager back and is wanting resident to transition to assisted living at time of discharge. Resident is agreeable to this as well per resident. Alejo requesting for this social media content manager to look into [facility] ([facility]), [facility], [facility], and [facility]. Alejo reporting to only want a respite stay for resident of 30 days until resident family is able to get resident transitioned back to home. Alejo aware that assisted living will be private pay and is voicing no concerns with this. This social media content manager will look into openings and go from there. Support given. Telephone call to Marita VALDERRAMA. Marita reporting to have no respite rooms open at this time. Telephone call to [facility], [place], voicemail left. Telephone call to Al [facility]. Al reporting to not be able to meet resident needs and to be unable to accept resident. Telephone call to Nette Boone. Nette reporting to have openings and to be able to look into whether or not [facility] would be able to manage resident needs of x4 daily straight catheterizing. Nette to get back to this social media content manager. This social media content manager communicated above information to Alejo and resident. Proposed discharge date: 01/29/18 PLAN: Discharge to assisted living pending approval. Jes LEO, FIRE EXTINGUISHER TECHNICIAN
--- NOTE | 2018-01-26 18:16 | NURSING ---
Pt was able to complete 75% of straight catheterization with assistance. Patient requires much encouragement and instruction to complete task. Was able to properly clean urethra and insert catheter until hitting enlarged prostate, patient educated on using a slight bit more pressure to get passed the prostate until the bladder is reached and urine begins to exit the catheter. Patient states understanding. Needed assistance with removing catheter and cleaning up.
[2018-01-26] MEDS: amLODIPine 5 MG Tablet PO (20:53)
--- NOTE | 2018-01-26 23:10 | NURSING ---
Patient completed straight catherization with assistance. Patient started to self teddy himself until he hit is enlarged prostate and he stopped. Patient encouraged to apply more pressure with catherization. Patient cathed for 200 cc of cloudy lachelle urine. Patient bladder scanned for 72 after straight cathed.
[2018-01-27] MEDS: Lactulose 20 GM/30 ML UDC PO ×2 (06:04→16:32)
[2018-01-27] MEDS: Polyethylene Glycol 3350 17 GM PACKET PO ×2 (06:04→16:33)
[2018-01-27] MEDS: Senna/Docusate Sodium 1 Tablet 2 TABLET PO ×2 (06:04→16:33)
[2018-01-27] MEDS: Famotidine 20 MG Tablet PO ×2 (06:05→16:33)
[2018-01-27] MEDS: APIXABAN 2.5 MG TABLET PO ×2 (06:05→16:33)
[2018-01-27] MEDS: AMOXICILLIN 500 MG CAPSULE PO (06:05)
--- NOTE | 2018-01-27 06:19 | NURSING ---
Patient self cathed at this time. Patient able to start the catheterization and got catheter in about 75% when he met resistance and patient stopped. Patient encouraged to keep going and encouraged to apply more pressure to get past enlarged prostate. Patient unable to completely self teddy. Patient self cathed for 300 cc of lachelle color cloudy urine. Patient tolerated procedure well.
[2018-01-27] MEDS: Smz/Tmp Ds Tablet 0.5 TABLET PO (08:28)
[2018-01-27] MEDS: Mycophenolate Mofetil 250 MG Capsule 500 MG PO ×2 (08:51→20:57)
[2018-01-27] MEDS: Tacrolimus Anhydrous 1 MG Capsule 2 MG PO ×2 (08:51→20:57)
[2018-01-27] MEDS: Na Biphos/Potassium Phosphate PACKET 1 PACKET PO ×4 (08:51→20:55)
--- NOTE | 2018-01-27 10:18 | CASEMGMT ---
Social Work Telephone call from Nette Boone. Nette reporting to still be reviewing case. Telephone call from [facility]. [place] reporting to have an opening and is wanting to come and meet with resident prior to accepting. [place] reporting to be able to come around 1:00pm. Resident and resident family aware and planning to be present as 1:00pm. Notified team of plan as well. Proposed discharge date: 01/29/18 PLAN: Discharge to assisted living. Jes LEO, HEMODIALYSIS TECHNICIAN
--- NOTE | 2018-01-27 10:28 | CON.PCM_ITS ---
Problem List (1) Urinary tract infection Status: Acute Reason for Consult: uti Consulted by: Dr. Rinaldi History of Present Illness: The patient is a 52 year old M with h/o kidney transplant, admitted with uti, transferred to TCU. Ucx now with E. faecium, has been on amoxicillin without improvement. C/o not feeling well with diffuse abd pain and dysuria. Getting intermittent straight cath. No fever. Full ROS performed and neg except as noted above. - Medical History Past Medical History (Chronic Problems): Chronic Problems (Last Reviewed 12/22/17 @ 11:28 by Siria Harp NP-C) Chronic kidney disease (Chronic) Mild intellectual disability (Chronic) Pulmonary embolism (Chronic) Pulmonary infiltrate present on computed tomography (Chronic) CKD (chronic kidney disease), stage III (Chronic) Kidney transplant recipient (Chronic) Congenital nystagmus (Chronic) Mild MRDD (Chronic) DVT (deep venous thrombosis) (Chronic) Renal transplant, status post (Chronic) Neurogenic bladder disorder (Chronic) managed with cic Allergies/Adverse Reactions: Allergies No Known Allergies Allergy (Verified 12/22/17 11:09) Home Medications: Ambulatory Orders Medication Instructions Recorded Mycophenolate Mofetil [Cellcept] 500 mg PO 0900,209907/14/16 Amlodipine [Norvasc] 5 mg PO QHS 09/29/17 albuterol sulfate 2.5 mg/3 mL 2.5 mg INHALATION Q4H PRN #180 vial 12/15/17 (0.083 %) solution for nebulization albuterol sulfate 90 mcg/actuation 2 puff INHALATION Q4H PRN #1 ea 12/22/17 breath activated powder inhaler Lactobacillus Acidophilus 1 tablet PO BID 01/11/18 [Acidophilus] Ranitidine [Zantac] 150 mg PO BID 01/11/18 Sulfamethoxazole/Trimethoprim 1 tab PO DAILY 01/11/18 [Sulfamethoxazole-Tmp Ss Tablet] Tacrolimus Anhydrous [Prograf] 2 mg PO 0900,209901/11/18 Acetaminophen [Tylenol] 1,000 mg PO Q8H PRN tablet 01/25/18 Amoxicillin [Amoxil] 500 mg PO Q8 #18 capsule 01/25/18 Apixaban [Eliquis] 2.5 mg PO BID #60 tablet 01/25/18 Na Biphos/Potassium Phosphate 1 packet PO 4X/DAYCM #120 packet 01/25/18 [Neutra-Phos Packet] Polyethylene Glycol 3350 [Miralax] 17 gm PO BID #60 packet 01/25/18 Senna/Docusate Sodium [Senokot-S] 2 tablet PO BID #120 tablet 01/25/18 - Social History SMOKING STATUS:: Never smoker Vital Signs Temp Pulse Resp BP Pulse Ox 98.8 F 96 18 142/85 H 94 01/26/18 16:00 01/26/18 16:00 01/26/18 16:00 01/26/18 16:00 01/26/18 16:00 Oxygen Delivery Method Room Air Weight: 76.856 kg Body Mass Index (BMI) 23.6 Microbiology Past 72 Hours 01/23/18 18:55 Urine Culture - Final Urine, Catheterized Enterococcus faecium - Other Studies Radiology: [] reviewed Other Studies: [] Route of nutrition/ use of supplements: [] Nutritional Intake: [] IV Site: [] Ga Catheter: [] - Physical Exam General: Alert, Cooperative, No apparent distress HEENT: Atraumatic, PERRLA, EOMI Neck: Supple, No Nodes Lungs: Clear to auscultation, Normal air movement Cardiovascular: Regular rate, Regular Rhythm Abdomen: Soft, Non-Distended, - - mild tendernes Extremities: No edema Skin: No rashes Musculoskeletal: No Tenderness to Palpation of Joints or Extremities Neurological: Cranial nerves II-XII grossly intact - Assessment/Plan Antibiotics: [] Assessment/Plan: [] Active and Suspected Problems (Last Reviewed 12/22/17 @ 11:28 by Siria Harp, BRAND [employer]ORS [employer]OMOTIONAL SALES-C) Urinary tract infection (Acute) Abdominal pain (Acute) Urinary retention (Acute) Recurrent sepsis due to urinary tract infection (Acute) Enterococcus faecium complicated uti - R to ampicillin. Will stop amoxicillin. Start po linezolid for planned 7-10 day course. Will follow, thank you.
--- NOTE | 2018-01-27 11:31 | NURSING ---
STRAIGHT CATH AT THIS TIME FOR 250CC XIMENA COLORED, SLIGHTLY CLOUDY URINE. R' TOLERATED WELL. ENCOURAGED FLUIDS.
[2018-01-27] MEDS: Linezolid 600 MG Tablet PO ×2 (11:32→16:34)
--- NOTE | 2018-01-27 15:28 | CASEMGMT ---
Social Work [facility] stopped and met with resident along with resident family. [facility] wanting to accept resident under the detention care facility at this time. Resident family discussing what they would like to do and will get back to this mental health social worker on their decision. Will continue to follow. Jes LEO, LIFTS AND CRANES INSPECTOR
[2018-01-27 15:38] VITALS: BP 111/66; PULSE 103; RESP 20; TEMP 37.1; O2SAT 97
--- NOTE | 2018-01-27 16:30 | NURSING ---
STRAIGHT CATH AT THIS TIME FOR 200CC DARK, CLOUDY URINE. R' TOLERATED WELL. FLUIDS ENCOURAGED.
[2018-01-27] MEDS: amLODIPine 5 MG Tablet PO (20:57)
[2018-01-28] MEDS: Polyethylene Glycol 3350 17 GM PACKET PO ×2 (06:03→17:39)
[2018-01-28] MEDS: APIXABAN 2.5 MG TABLET PO ×2 (06:03→17:39)
[2018-01-28] MEDS: Senna/Docusate Sodium 1 Tablet 2 TABLET PO ×2 (06:03→17:39)
[2018-01-28] MEDS: Famotidine 20 MG Tablet PO ×2 (06:03→17:39)
[2018-01-28] MEDS: Lactulose 20 GM/30 ML UDC PO ×2 (06:03→17:39)
[2018-01-28] MEDS: Linezolid 600 MG Tablet PO ×2 (06:03→17:39)
[2018-01-28] MEDS: Na Biphos/Potassium Phosphate PACKET 1 PACKET PO ×4 (08:30→20:51)
[2018-01-28] MEDS: Tacrolimus Anhydrous 1 MG Capsule 2 MG PO ×2 (08:30→20:52)
[2018-01-28] MEDS: Smz/Tmp Ds Tablet 0.5 TABLET PO (08:31)
[2018-01-28] MEDS: Mycophenolate Mofetil 250 MG Capsule 500 MG PO ×2 (08:31→20:51)
--- NOTE | 2018-01-28 08:50 | NURSING ---
Entered pt room to give him his meds and one small bite of applesauce given & pt began heaving. Pt had small liquid emesis. PT had not eaten brkfst yet. Tray given and pt ate polish toast then pt was able to take meds as ordered.
--- NOTE | 2018-01-28 12:33 | CASEMGMT ---
Social Work Resident family voicing that plan is for resident to discharge to the [facility] under the retirement side of things. [facility] call to [facility] [place] confirming above and to be able to accept resident. PASRR completed in HENS. PASRR triggered due to resident diagnosis of Mild MRDD. Telephone call to the board of developmental disabilities. Voicemail left with Skyler's cnc supervisor - Doris [facility] - [phone]. Waiting return phone call at this time. Transfer form initiated. Proposed discharge date: 01/29/18 pending board of developmental disabilities status and evaluation. PLAN: Discharge to the [facility]. Jes LEO, FINISHED CIGAR MAKER
--- NOTE | 2018-01-28 14:07 | PCM.TXEXTCAR ---
- Diet 01/19/18 14:10 Diet: Regular Diet Is pt able to select menu?: Yes Diet Comments: needs to be up with all meals - Routine Orders/Code Status Suppository Type: Dulcolax 10mg Suppository Frequency: Daily PRN Routine Lab Work: CBC, BMP Code Status: Full Code - Therapies Weight Bearing: Full - Problem/Diagnosis (1) Urinary tract infection Status: Acute Current Visit: Yes (2) Abdominal pain Status: Acute Current Visit: Yes (3) Urinary retention Status: Acute Current Visit: Yes (4) Chronic kidney disease Status: Chronic Current Visit: Yes (5) Mild intellectual disability Status: Chronic Current Visit: Yes (6) Sepsis Status: Acute Current Visit: No (7) PRISCILLA (acute kidney injury) Status: Acute Current Visit: No (8) Pulmonary embolism Status: Chronic Current Visit: No (9) DVT (deep venous thrombosis) Status: Chronic Current Visit: No (10) Neurogenic bladder disorder Status: Chronic Comment: managed with cic Current Visit: No - Allergies/Procedures Done in Hospital Allergies/Adverse Reactions: Allergies No Known Allergies Allergy (Verified 12/22/17 11:09) - Type of Care/Length of Stay Estimated LOS: Convalescent Care Less Than 30 days Type of Care Needed: Skilled Rehab Potential: Good Prognosis: Good - Additional Orders/Day of Discharge Additional Orders: Straight cath empty bladder every 6 hours. Day of Discharge: 01/31/18 - Dietary and Speech Recommendations Dietitian Recommendations/Changes: Rec continue Regular d/t wt loss. Will continue to provide CIB w/ meals for increased nutrition if consumed. - Follow Up Care Primary Care Physician: Mike Bella MD [Primary Care Provider] - Please follow up with your Primary Care Physician in: 1 week. Please Follow Up With: Nakul Dennis MD When: 2 weeks. Please Follow Up With: transplant team When: 2 weeks. Please Follow Up With: Dr Bella
--- NOTE | 2018-01-28 15:15 | CASEMGMT ---
Brief interview for mental status (BIMS) and resident mood interview (PHQ-9) completed on this day. BIMS score 14/15. PHQ-9 score
[2018-01-28 15:47] VITALS: BP 129/78; PULSE 90; RESP 18; TEMP 36.7; O2SAT 97
--- NOTE | 2018-01-28 17:14 | CASEMGMT ---
Social Work Telephone call from Doris Santiago reporting to be able to come and evaluate resident on Wednesday morning. With tentative discharge date now being 01/31/[address] [facility] Spoke with resident and resident family. This health and social care teacher communicating above information. All agreeable to discharge plan and discharge date change. Support given. Proposed discharge date: 01/31/18 pending evaluation by board of development disabilities. PLAN: Tentative plan would be discharge on 01/31/18 to the [facility] if resident is approved by board of development disabilities. Jes LEO, VICE PRESIDENT INVESTOR RELATIONS
[2018-01-28] MEDS: amLODIPine 5 MG Tablet PO (20:51)
[2018-01-29] MEDS: Lactulose 20 GM/30 ML UDC PO ×2 (06:20→18:04)
[2018-01-29] MEDS: Polyethylene Glycol 3350 17 GM PACKET PO ×2 (06:20→18:05)
[2018-01-29] MEDS: APIXABAN 2.5 MG TABLET PO ×2 (06:21→18:04)
[2018-01-29] MEDS: Famotidine 20 MG Tablet PO ×2 (06:22→18:04)
[2018-01-29] MEDS: Linezolid 600 MG Tablet PO ×2 (06:22→18:04)
[2018-01-29] MEDS: Senna/Docusate Sodium 1 Tablet 2 TABLET PO ×2 (06:22→18:05)
[2018-01-29] MEDS: Na Biphos/Potassium Phosphate PACKET 1 PACKET PO ×4 (09:15→20:47)
[2018-01-29] MEDS: Tacrolimus Anhydrous 1 MG Capsule 2 MG PO ×2 (09:16→20:47)
[2018-01-29] MEDS: Smz/Tmp Ds Tablet 0.5 TABLET PO (09:16)
[2018-01-29] MEDS: Mycophenolate Mofetil 250 MG Capsule 500 MG PO ×2 (09:17→20:47)
--- NOTE | 2018-01-29 10:17 | MDS.RN ---
Pain interview for donna 01/30/18 completed
[2018-01-29 15:26] VITALS: BP 115/74; PULSE 87; RESP 18; TEMP 36.7; O2SAT 97
--- NOTE | 2018-01-29 18:46 | NURSING ---
Pt straight cathed self x2 today with little assistance. Sterile technique maintained.
[2018-01-29] MEDS: amLODIPine 5 MG Tablet PO (20:48)
--- NOTE | 2018-01-30 00:41 | NURSING ---
Pt straight cathed for 500ml clear yellow urine. Tolerated well. RN aware.
[2018-01-30] MEDS: Lactulose 20 GM/30 ML UDC PO (06:03)
[2018-01-30] MEDS: Famotidine 20 MG Tablet PO ×2 (06:03→17:47)
[2018-01-30] MEDS: APIXABAN 2.5 MG TABLET PO ×2 (06:03→17:47)
[2018-01-30] MEDS: Linezolid 600 MG Tablet PO ×2 (06:04→17:47)
[2018-01-30] MEDS: Polyethylene Glycol 3350 17 GM PACKET PO ×2 (06:08→17:47)
[2018-01-30] MEDS: Senna/Docusate Sodium 1 Tablet 2 TABLET PO ×2 (06:08→17:47)
--- NOTE | 2018-01-30 06:24 | NURSING ---
Pt straight cathed for 350cc at this time for clear, yellow odorless urine. Pt tolerated well.
[2018-01-30] MEDS: Na Biphos/Potassium Phosphate PACKET 1 PACKET PO ×4 (09:10→20:49)
[2018-01-30] MEDS: Mycophenolate Mofetil 250 MG Capsule 500 MG PO ×2 (09:10→20:47)
[2018-01-30] MEDS: Tacrolimus Anhydrous 1 MG Capsule 2 MG PO ×2 (09:10→20:47)
[2018-01-30] MEDS: Smz/Tmp Ds Tablet 0.5 TABLET PO (09:10)
[2018-01-30] MEDS: Mag Hydrox/Al Hydrox/Simeth 30 ML UDC PO (09:18)
--- NOTE | 2018-01-30 12:30 | NURSING ---
Pt having 4-5 soft, non-formed stools a day. Bowel sounds active, abdomen soft and non-tender. Dr. Rinaldi updated, NO to d/c lactulose.
[2018-01-30 15:26] VITALS: BP 138/81; PULSE 89; RESP 18; TEMP 36.9; O2SAT 96
[2018-01-30] MEDS: amLODIPine 5 MG Tablet PO (20:47)
[2018-01-31 06:04] LABS: Anion Gap 8 (5-15); BUN 17 mg/dL (7-18); BUN/Creat Ratio 12.2 RATIO (10-20); Calcium,Total 8.1 mg/dL (8.5-10.1); Chloride 111 mmol/L (98-107); Creatinine, Serum 1.39 mg/dL (0.70-1.30); EST Glomerular Filtration Rate 57 mL/min (>60); Est Glom Filt Rate - Afr Amer 69 mL/min (>60); Estimated Creatinine Clearance 69.12 ml/min; Glucose 87 mg/dL (74-106); Potassium 4.2 mmol/L (3.5-5.1); Sodium Level 143 mmol/L (136-145)
[2018-01-31 06:05] LABS: Absolute Lymphocyte Count 0.79 X10^3/ul (0.83-4.51); Absolute Neutrophil Count 2.9 X10^3/uL (2.0-7.7); Basophil# 0.03 X10^3/uL; Basophil% 0.7 % (0-1); Eosinophil# 0.26 X10^3/uL; Eosinophils% 5.8 % (0-5); Hematocrit 36.3 % (40-54); Lymphocyte # 0.79 X10^3/ul (4.0); Lymphocyte % 17.7 % (19-41); Mean Corp Hgb Conc 30.3 g/gl (32-36); Mean Corpuscular Hgb 26.1 pg (27.0-32.0); Mean Platelet Vol. 10.3 fl (6.2-12.0); Monocyte# 0.49 X10^3/uL; Neutrophil % 64.8 % (47-70); Platelet Count 274 K/mm3 (150-450); RBC Distribution Width CV 15.7 % (11.6-14.6); RBC Distribution Width SD 49.7 fl (35.1-43.9); Red Blood Count 4.22 M/mm3 (4.6-6.2); White Blood Count 4.5 K/mm3 (4.4-11.0)
[2018-01-31] MEDS: Senna/Docusate Sodium 1 Tablet 2 TABLET PO ×2 (06:17→16:56)
[2018-01-31] MEDS: Famotidine 20 MG Tablet PO ×2 (06:17→16:55)
[2018-01-31] MEDS: APIXABAN 2.5 MG TABLET PO ×2 (06:17→16:56)
[2018-01-31] MEDS: Polyethylene Glycol 3350 17 GM PACKET PO ×2 (06:17→16:56)
[2018-01-31] MEDS: Linezolid 600 MG Tablet PO ×2 (06:17→16:57)
[2018-01-31 06:21] LABS: POSITIVE COUNT NO; POSITIVE DIFFERENTIAL NO; POSITIVE MORPHOLOGY NO
[2018-01-31] MEDS: Na Biphos/Potassium Phosphate PACKET 1 PACKET PO ×4 (08:55→20:45)
[2018-01-31] MEDS: Mycophenolate Mofetil 250 MG Capsule 500 MG PO ×2 (08:55→20:45)
[2018-01-31] MEDS: Tacrolimus Anhydrous 1 MG Capsule 2 MG PO ×2 (08:55→20:45)
[2018-01-31] MEDS: Smz/Tmp Ds Tablet 0.5 TABLET PO (08:55)
--- NOTE | 2018-01-31 11:44 | CASEMGMT ---
Social Work Doris from the Board of Developmental Disabilities stopped by this morning and obtained information to review in order to approve transition to SNF stay for resident. Pending response at this time. Resident family notified. Will continue to follow. Jes LEO, DECOMMISSIONING WELL SITE MANAGER
--- NOTE | 2018-01-31 15:54 | CHAPLAIN ---
Type of Pastoral Visit ___ Initial Visit _x__ Follow-up Visit ___ On-call Visit ___ General Patient Visit ___ Spiritual Assessment ___ Family Conference ___ Bereavement ___ Rapid Response ___ Code Blue ___ Other (describe below) Pastoral Care Referral From _x__ Patient ___ Family ___ Nurse ___ Physician ___ Rn Informatics ___ Interpreter And Translator ___ Other (describe below) Sacrament/Intervention _x__ Active listening ___ Anointing ___ Zoroastrian ___ Bereavement ___ Communion ___ Alma exploration ___ ___ Life review ___ Prayer ___ Reconciliation ___ Sacrament of Sick _x__ Supportive presence ___ Wedding ___ Other (describe below) Pastoral Comments RN contacted this varnish maker as patient made request for a visit; pt is talkative and pt asks several random questions; it does not appear that pt has a particular concern other than wanting someone to talk with; when activity time came for TCU the patient wanted to participate; followed pt to activity area and watched activity for a few minutes
[2018-01-31 16:00] VITALS: BP 118/74; PULSE 88; RESP 18; TEMP 36.6; O2SAT 96
--- NOTE | 2018-01-31 16:11 | CASEMGMT ---
Social Work Telephone call from Doris at the board of developmental disabilities. Doris reporting to still be waiting to hear back about the report. This community mental health social worker thanking Doris for the call at this time. Will continue to follow. Jes LEO, BROKE BEATER
[2018-01-31] MEDS: amLODIPine 5 MG Tablet PO (20:45)
[2018-02-01] MEDS: Polyethylene Glycol 3350 17 GM PACKET PO ×2 (05:51→17:53)
[2018-02-01] MEDS: APIXABAN 2.5 MG TABLET PO ×2 (05:51→17:53)
[2018-02-01] MEDS: Senna/Docusate Sodium 1 Tablet 2 TABLET PO ×2 (05:52→17:52)
[2018-02-01] MEDS: Famotidine 20 MG Tablet PO ×2 (05:52→17:53)
[2018-02-01] MEDS: Linezolid 600 MG Tablet PO ×2 (05:52→17:52)
[2018-02-01] MEDS: Tacrolimus Anhydrous 1 MG Capsule 2 MG PO (08:49)
[2018-02-01] MEDS: Mycophenolate Mofetil 250 MG Capsule 500 MG PO (08:49)
[2018-02-01] MEDS: Na Biphos/Potassium Phosphate PACKET 1 PACKET PO ×3 (08:49→17:53)
[2018-02-01] MEDS: Smz/Tmp Ds Tablet 0.5 TABLET PO (08:49)
--- NOTE | 2018-02-01 09:50 | CASEMGMT ---
Social Work Telephone call from the Board of DDDoris. Doris reporting that resident has been cleared and approved to admit to the [facility]. Doris faxing determination letter at this time. Notified resident and resident family of above information. Plan is for resident to discharge to the [facility] today. Confirmed with the [facility] that resident is able to admit today. Resident family plans to provide transportation. Discharge information and PASRR results faxed to the [facility]. Proposed discharge date: 02/01/18 PLAN: Discharge to the [facility]. Jes LEO, MARINE FUEL DOCK ATTENDANT
[2018-02-01] MEDS: Bisacodyl 5 MG Tablet 10 MG PO (11:25)
--- NOTE | 2018-02-01 11:51 | PCM.PN.ID ---
Patient Problems: Active and Suspected Problems (Last Reviewed 12/22/17 @ 11:28 by Siria Harp NP-C) Urinary tract infection (Acute) Abdominal pain (Acute) Urinary retention (Acute) Recurrent sepsis due to urinary tract infection (Acute) Subjective: Feeling better with abx, but still having a lot of trouble urinating. No fever. - Physical Exam General: Cooperative, No apparent distress Lungs: Clear to auscultation, Normal air movement Cardiovascular: Regular rate, Regular Rhythm Abdomen: Soft, Non-Distended, - - mild suprapubic tenderness Skin: No rashes Vital Signs Temp Pulse Resp BP Pulse Ox 97.8 F 88 18 118/74 96 01/31/18 16:00 01/31/18 16:00 01/31/18 16:00 01/31/18 16:00 01/31/18 16:00 Oxygen Delivery Method Room Air Weight: 76.856 kg Body Mass Index (BMI) 23.6 Intake and Output for Last 24 Hours 01/30/18 01/31/18 02/01/18 23:59 23:59 23:59 Intake Total 800 / 800 660 / 660 480 / 480 Output Total 1600 / 1600 1525 / 1525 450 / 450 Balance -800 / -800 -865 / -865 Medical Necessity - Tobacco Use Smoking Status: Never smoker Tobacco Use: Non-smoker Route of nutrition/ use of supplements: [] Nutritional Intake: [] IV Site: [] Ga Catheter: [] - Assessment/Plan Antibiotics: [] Assessment/Plan: [] Active and Suspected Problems (Last Reviewed 12/22/17 @ 11:28 by Siria Harp RETAIL DISTRICT MANAGER-C) Urinary tract infection (Acute) Abdominal pain (Acute) Urinary retention (Acute) Recurrent sepsis due to urinary tract infection (Acute) Enterococcus faecium complicated uti - R to ampicillin. Feeling better on po linezolid for planned 7-10 day course. Currently day 7, will stop tomorrow. C/o difficulty urinating. Has been seen by urology. Will follow
--- NOTE | 2018-02-01 15:28 | NURSING ---
prior authorization obtained from insurance co for zyvox #2 tabs for UTI. auth approved. Franco Mccormick in [facility] retail pharmacy w/AUTH # [id number]
[2018-02-01 16:00] VITALS: BP 126/77; PULSE 90; RESP 18; TEMP 36.5; O2SAT 96
--- NOTE | 2018-02-01 16:32 | NURSING ---
report called to michael at [facility]
--- NOTE | 2018-02-01 18:04 | NURSING ---
Resident straight caths himself independently for 400 ml of urine.
--- NOTE | 2018-02-10 09:46 | MDS.RN ---
Information for the mds was obtained from review of the clinical record, interview of resident, staff, and direct observation of resident's care.
--- NOTE | 2018-02-15 09:47 | MDS.RN ---
Information for the mds was obtained from review of the clinical record, interview of resident, staff, and direct observation of resident's care. resident was Mod I/supervision while ambulating on/off unit, in hallways
== END 2018-02-01 18:12 | disposition skilled nursing facility (03) | DRG 948 ==
PROVIDERS: Admitting Provider Family Medicine Geriatric Medicine; Family Provider Family Medicine; PCP Family Medicine; Visit Provider Internal Medicine
DX: R53.81 Other malaise (principal); Z94.0 Kidney transplant status; N39.0 Urinary tract infection, site not specified; K21.9 Gastro-esophageal reflux disease without esophagitis; I10 Essential (primary) hypertension; Z87.440 Personal history of urinary (tract) infections; I12.9 Hypertensive chronic kidney disease with stage 1 through stage 4 chronic kidney disease, or unspecified chronic kidney disease; N18.3 Chronic kidney disease, stage 3 (moderate); N31.9 Neuromuscular dysfunction of bladder, unspecified; Z86.711 Personal history of pulmonary embolism; Z86.718 Personal history of other venous thrombosis and embolism; F70 Mild intellectual disabilities; Z23 Encounter for immunization; B95.2 Enterococcus as the cause of diseases classified elsewhere
CPT/HCPCS: 36415; 74018; 74019; 80048; 80069; 80197; 81001; 81002; 84153; 85025; 87077; 87086; 87088; 87186; 97110; 97116; 97163; 97166; 97530; 97535; 97802; 90670; 90686

== ENCOUNTER 2018-02-23 23:56 | Emergency (ER) | payer MEDICARE, OTHER, SELFPAY ==
[2018-02-23 23:57] VITALS: BP 143/86; PULSE 96; RESP 14; TEMP 36.7; O2SAT 97; BMI 23.0
[2018-02-24 00:41] LABS: Absolute Lymphocyte Count 1.58 X10^3/ul (0.83-4.51); Absolute Neutrophil Count 2.6 X10^3/uL (2.0-7.7); Basophil# 0.03 X10^3/uL; Basophil% 0.6 % (0-1); Eosinophil# 0.12 X10^3/uL; Eosinophils% 2.4 % (0-5); Hematocrit 37.6 % (40-54); Lymphocyte # 1.58 X10^3/ul (4.0); Mean Corp Hgb Conc 31.9 g/gl (32-36); Mean Corpuscular Hgb 26.6 pg (27.0-32.0); Mean Corpuscular Volume 83.4 fL (80-94); Mean Platelet Vol. 10.4 fl (6.2-12.0); Monocyte# 0.63 X10^3/uL; Monocyte% 12.8 % (0-10); Neutrophil # 2.56 X10^3/uL (2.7-7.7); Platelet Count 224 K/mm3 (150-450); RBC Distribution Width CV 15.6 % (11.6-14.6); RBC Distribution Width SD 46.9 fl (35.1-43.9); Red Blood Count 4.51 M/mm3 (4.6-6.2); White Blood Count 4.9 K/mm3 (4.4-11.0)
[2018-02-24 00:42] LABS: POSITIVE COUNT NO; POSITIVE DIFFERENTIAL NO; POSITIVE MORPHOLOGY NO
[2018-02-24 00:45] LABS: Anion Gap 8 (5-15); BUN 20 mg/dL (7-18); BUN/Creat Ratio 13.5 RATIO (10-20); Calcium,Total 8.1 mg/dL (8.5-10.1); Chloride 111 mmol/L (98-107); Creatinine, Serum 1.48 mg/dL (0.70-1.30); EST Glomerular Filtration Rate 53 mL/min (>60); Est Glom Filt Rate - Afr Amer 65 mL/min (>60); Estimated Creatinine Clearance 65.13 ml/min; Glucose 100 mg/dL (74-106); Sodium Level 141 mmol/L (136-145)
[2018-02-24 00:53] LABS: Bacteria 0 SEEN /hpf (None Seen); Mucous, Urine 0 SEEN /hpf (<or=2+)
[2018-02-24 00:54] LABS: Color, Urine Yellow (Yellow); Glucose, Dipstick Normal (Normal); Ketone-Dipstick Negative (Negative); Leukocyte Esterase-Dipstick 500 /ul (Negative); Nitrite-Dipstick Negative (Negative); Occult Blood-Urine 250 /ul (Negative); Protein-Dipstick 30 mg/dl (Negative); Urine Bilirubin Dipstick Negative (Negative); Urine Clarity Cloudy (Clear); Urine Urobilinogen Normal (Normal); Urine pH 6.5 (5.0 - 8.0)
[2018-02-24 01:13] LABS: Red Blood Cells-Urine 50-100 SEEN /hpf (0-5); White Blood Cells 25-50 SEEN /hpf (0-5)
[2018-02-24 01:14] LABS: Squamous Epithelial Cells - UA 0-5 SEEN /hpf (0-5)
--- NOTE | 2018-02-24 01:31 | ED.DCSUM_ITS ---
- ER Visit Summary Date of Service: 02/24/18 Chief Complaint: Decreased urine output History of Present Illness: The patient is a 52 M sent in from [facility] for decreased urine output. Patient gets straight cath every 6 hours due to neurogenic bladder. His last normal cath was at 6 PM. Nurses were reported unable to get urine return with cath at 10 PM. He presents at midnight with feeling of need to urinate but unable to pass urine. Patient has had prior kidney transplant. 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 Physical Examination: Vital signs are unremarkable. Patient sitting upright in bed no acute distress. He is nontoxic appearing. Heart is regular rate and rhythm. Lung sounds are clear. Abdomen is soft with suprapubic tenderness. Test Results: CBC was normal white count hemoglobin 12.0. Chemistry studies reveal creatinine 1.48 which is consistent with his prior values. Urinalysis shows 25-50 white cells with 50-100 RBCs. Emergency Department Course and Treatment: 16 Cymro Ga was placed by nursing staff. One hour after catheter was placed 1700 cc of urine have drained. Urine was sent for a culture. I did review his last 2 urine cultures that grew bacteria. It appears Macrobid would be my best option for oral coverage given his previous cultures. We will leave Ga catheter in at this time. Patient is to return for worsening symptoms or concerns. Treatment Plan: [] Disposition: Discharge Impression: 1. Urinary retention 2. Cystitis This note was generated with [employer] dictation software. It may contain incorrect words, spelling, and punctuation that were not noted in review of the chart prior to signing ED Disposition - Plan for ED Patient: Disposition: Home or Assisted Living Chief Complaint: Complaint Instructions: ED Retention Urinary Male, ED UTI Cystitis Male Prescriptions: Nitrofurantoin Macrocrystals [Macrobid] 100 mg PO Q12 #10 capsule Referrals: Mike Bella MD [Primary Care Provider] - 3-5 Days
--- NOTE | 2018-02-24 01:31 | ED.DEP ---
ED Disposition - Plan for ED Patient: Disposition: Home or Assisted Living Chief Complaint: Complaint Instructions: ED UTI Cystitis Male, ED Retention Urinary Male Prescriptions: Nitrofurantoin Macrocrystals [Macrobid] 100 mg PO Q12 #10 capsule Referrals: Mike Bella MD [Primary Care Provider] - 3-5 Days
[2018-02-24 01:39] VITALS: BP 132/85; PULSE 91; RESP 16; O2SAT 95
[2018-02-24] MEDS: Nitrofurantoin Macrocrystals 100 MG Capsule PO (01:39)
--- NOTE | 2018-02-24 01:39 | ED.RN ---
[facility] CALLED FOR TRANSPORT
== END 2018-02-24 02:21 | disposition home or self-care (01) ==
PROVIDERS: Emergency Provider Emergency Medicine; Family Provider Family Medicine; PCP Family Medicine
DX: N30.90 Cystitis, unspecified without hematuria (principal); R33.9 Retention of urine, unspecified; N31.9 Neuromuscular dysfunction of bladder, unspecified; Z94.0 Kidney transplant status; Z86.711 Personal history of pulmonary embolism; Z79.01 Long term (current) use of anticoagulants; Z79.899 Other long term (current) drug therapy
CPT/HCPCS: 51702; 80048; 81001; 85025; 87077; 87086; 87088; 87186; 99285; A4216

== ENCOUNTER → 2018-03-23 05:00 | Outpatient (REF) | payer MEDICARE, OTHER, SELFPAY ==
[2018-03-23 09:25] LABS: Hematocrit 36.4 % (40-54); Hemoglobin 11.3 g/dl (13.0-16.5); Mean Corpuscular Hgb 25.3 pg (27.0-32.0); Mean Corpuscular Volume 81.4 fL (80-94); Mean Platelet Vol. 11.6 fl (6.2-12.0); Platelet Count 236 K/mm3 (150-450); RBC Distribution Width CV 15.7 % (11.6-14.6); RBC Distribution Width SD 46.1 fl (35.1-43.9); Red Blood Count 4.47 M/mm3 (4.6-6.2); White Blood Count 4.2 K/mm3 (4.4-11.0)
[2018-03-23 09:28] LABS: Anion Gap 8 (5-15); BUN 17 mg/dL (7-18); BUN/Creat Ratio 10.6 RATIO (10-20); Calcium,Total 7.6 mg/dL (8.5-10.1); Chloride 110 mmol/L (98-107); EST Glomerular Filtration Rate 49 mL/min (>60); Est Glom Filt Rate - Afr Amer 59 mL/min (>60); Glucose 78 mg/dL (74-106); Potassium 3.8 mmol/L (3.5-5.1); Scan Indicated on CBC? Y/N NO; Sodium Level 142 mmol/L (136-145)
== END ==
LOC: OLS.AVED 05:00
PROVIDERS: Visit Provider Family Medicine
DX: Z94.0 Kidney transplant status (principal)
CPT/HCPCS: 36415; 80048; 85027

== ENCOUNTER → 2018-03-30 05:00 | Outpatient (REF) | payer MEDICARE, OTHER, SELFPAY ==
[2018-03-30 07:39] LABS: Mean Corp Hgb Conc 31.6 g/gl (32-36); Mean Corpuscular Hgb 25.5 pg (27.0-32.0); Mean Corpuscular Volume 80.7 fL (80-94); Platelet Count 223 K/mm3 (150-450); RBC Distribution Width CV 15.8 % (11.6-14.6); Red Blood Count 4.71 M/mm3 (4.6-6.2); White Blood Count 3.8 K/mm3 (4.4-11.0)
[2018-03-30 07:48] LABS: Anion Gap 8 (5-15); BUN 17 mg/dL (7-18); BUN/Creat Ratio 11.6 RATIO (10-20); Calcium,Total 7.8 mg/dL (8.5-10.1); Chloride 109 mmol/L (98-107); Creatinine, Serum 1.47 mg/dL (0.70-1.30); EST Glomerular Filtration Rate 54 mL/min (>60); Est Glom Filt Rate - Afr Amer 65 mL/min (>60); Glucose 83 mg/dL (74-106); Potassium 3.7 mmol/L (3.5-5.1); Sodium Level 141 mmol/L (136-145)
[2018-03-30 07:50] LABS: Scan Indicated on CBC? Y/N NO
--- OUTSIDE RECORDS SUMMARY | 2018-05-25 10:57 | XMS RPT_ITS ---
:1965 Author Organization OHIP Support Name Relationship Address Phone COILN GALLAGHER Unavailable Unavailable + YOLI PINZON Unavailable Unavailable + COW Unavailable [address] + [place] [address] Patsolic, Suzanna Unavailable [address] + [place] [address] Stypjolie Cierra Unavailable [address] + [place] [address] COW Unavailable [address] + [place] [address] Patsolic, Suzanna Unavailable [address] + [place] [address] Stype, Cierra Unavailable [address] + [place] [address] COW Unavailable [address] + [place] [address] Patsolic, Suzanna Unavailable [address] + [place] [address] Stype, Cierra Unavailable [address] + [place] [address] COW Unavailable [address] + [place] [address] Patsolic, Suzanna Unavailable [address] + [place] [address] Stype, Cierra Unavailable [address] + [place] [address] COW Unavailable [address] + [place] [address] Patsolic, Suzanna Unavailable [address] + [place] [address] Stype, Cierra Unavailable [address] + [place] [address] COW Unavailable [address] + [place] [address] Patsolic, Suzanna Unavailable [address] + [place] [address] Stype, Cierra Unavailable [address] + [place] [address] PATSOLIC, COLIN Unavailable Unavailable + STYPE, YOLI Unavailable Unavailable + COW Unavailable [address] + [place] [address] Patsolic, Suzanna Unavailable [address] + [place] [address] Stype, Cierra Unavailable [address] + [place] [address] COW Unavailable [address] + [place] [address] Patsolic, Suzanna Unavailable [address] + [place] [address] Stype, Cierra Unavailable [address] + [place] [address] COW Unavailable [address] + [place] [address] Patsolic, Suzanna Unavailable [address] + [place] [address] Stype, Cierra Unavailable [address] + [place] [address] COW Unavailable [address] + [place] [address] Patsolic, Suzanna Unavailable [address] + [place] [address] Stype, Cierra Unavailable [address] + [place] [address] COW Unavailable [address] + [place] [address] Patsolic, Suzanna Unavailable [address] + [place] [address] Stype, Cierra Unavailable [address] + [place] [address] + [place] [address] Patsolic, Suzanna Unavailable [address] + [place] [address] Stype, Cierra Unavailable [address] + [place] [address] + [place] [address] Patsolic, Suzanna Unavailable [address] + [place] [address] Stype, Cierra Unavailable [address] + [place] [address] + [place] [address] OBEYHIRALSUZANNA TAPIA (MEDICAL POA) Unavailable [address] + [place] [address] STYPE, CIERRA Unavailable [address] + [place] [address] + [place] [address] PATHIRALSUZANNA TAPIA (MEDICAL POA) Unavailable [address] + [place] [address] STYPE, CIERRA Unavailable [address] + [place] [address] + [place] [address] PATSOSUZANNA TAPIA (MEDICAL POA) Unavailable [address] + [place] [address] STYPE, CEIRRA Unavailable [address] + [place] [address] + [place] [address] PATSOLICSUZANNA (MEDICAL POA) Unavailable [address] + [place] [address] STYPE, CIERRA Unavailable [address] + [place] [address] + [place] [address] SUZANNA GALLAGHER (MEDICAL POA) Unavailable [address] + [place] [address] STYPE, CIERRA Unavailable [address] + [place] [address] + [place] [address] SUZANNA GALLAGHER (MEDICAL POA) Unavailable [address] + [place] [address] STYPE, CIERRA Unavailable [address] + [place] [address] + [place] [address] SUZANNA GALLAGHER (MEDICAL POA) Unavailable [address] + [place] [address] STYPE, CIERRA Unavailable [address] + [place] [address] + [place] [address] SUZANNA GALLAGHER (MEDICAL POA) Unavailable [address] + [place] [address] STYPE, CIERRA Unavailable [address] + [place] [address] + [place] [address] Suzanna Gallagher Unavailable [address] + [place] [address] Stype, Cierra Unavailable [address] + [place] [address] + [place] [address] SUZANNA GALLAGHER (MEDICAL POA) Unavailable [address] + [place] [address] STYPE, CIERRA Unavailable [address] + [place] [address] COW Un[address] + [place] [address] Suzanna Gallagher Unavailable [address] + [place] [address] Stype, Cierra Unavailable [address] + [place] [address] + [place] [address] SUZANNA GALLAGHER (MEDICAL POA) Unavailable [address] + [place] [address] STYPE CIERRA Unavailable [address] + [place] [address] + [place] [address] SUZANNA GALLAGHER (MEDICAL POA) Unavailable [address] + [place] [address] STYPE CIERRA Unavailable [address] + [place] [address] + [place] [address] SUZANNA GALLAGHER (MEDICAL POA) Unavailable [address] + [place] [address] STYPE CIERRA Unavailable [address] + [place] [address] COLIN GALLAGHER Unavailable Unavailable + STYPE YOLI Unavailable Unavailable + COW Unavailable [address] + [place] [address] SUZANNA GALLAGHER (MEDICAL POA) Unavailable [address] + [place] [address] STYPE CIERRA Unavailable [address] + [place] [address] + [place] [address] SUZANNA GALLAGHER (MEDICAL POA) Unavailable [address] + [place] [address] STYPE, CIERRA Unavailable [address] + [place] [address] + [place] [address] SUZANNA GALLAGHER (MEDICAL POA) Unavailable [address] + [place] [address] STYPE, CIERRA Unavailable [address] + [place] [address] + [place] [address] SUZANNA GALLAGHER (MEDICAL POA) Unavailable [address] + [place] [address] STYPE, CIERRA Unavailable [address] + [place] [address] + [place] [address] SUZANNA GALLAGHER (MEDICAL POA) Unavailable [address] + [place] [address] STYPE, CIERRA Unavailable [address] [phone] [place] [address] + [place] [address] SUZANNA GALLAGHER (MEDICAL POA) Unavailable [address] + [place] [address] STYPE, CIERRA Unavailable [address] [phone] [place] [address] + [place] [address] SUZANNA GALLAGHER (MEDICAL POA) Unavailable [address] + [place] [address] STYPE, CIERRA Unavailable [address] [phone] [place] [address] + [place] [address] PATSUZANNA LEE (MEDICAL POA) Unavailable [address] + [place] [address] STYPE, CIERRA Unavailable [address] [phone] [place] [address] + [place] [address] SUZANNA GALLAGHER (MEDICAL POA) Unavailable [address] + [place] [address] STYPE, CIERRA Unavailable [address] + [place] [address] + [place] [address] SUZANNA GALLAGHER (MEDICAL POA) Unavailable [address] + [place] [address] STYPE, CIERRA Unavailable [address] [phone] [place] [address] + [place] [address] STYPE, CIERRA Unavailable [address] [phone] [place] [address] + [place] [address] STYPE CIERRA Unavailable [address] [phone] [place] [address] + [place] [address] SUZANNA GALLAGHER (MEDICAL POA) Unavailable [address] + [place] [address] STYPE, CIERRA Unavailable [address] + [place] [address] + [place] [address] STYPE, CIERRA Unavailable [address] [phone] [place] [address] + [place] [address] STYPE, CIERRA Unavailable [address] [phone] [place] [address] + [place] [address] STYPE, CIERRA Unavailable [address] [phone] [place] [address] + [place] [address] STYPE CIERRA Unavailable [address] [phone] [place] [address] + [place] [address] STYPE CIERRA Unavailable [address] [phone] [place] [address] + [place] [address] STYPE CIERRA Unavailable [address] [phone] [place] [address] + [place] [address] SUZANNA GALLAGHER (MEDICAL POA) Unavailable [address] + [place] [address] STYPE, CIERRA Unavailable [address] + [place] [address] + [place] [address] STYPE, CIERRA Unavailable [address] [phone] [place] [address] + [place] [address] STYPE, CIERRA Unavailable [address] [phone] [place] [address] + [place] [address] STYPE CIERRA Unavailable [address] [phone] [place] [address] + [place] [address] STYPE, CIERRA Unavailable [address] [phone] [place] [address] + [place] [address] STYPE, CIERRA Unavailable [address] [phone] [place] [address] + [place] [address] STYPE, CIERRA Unavailable [address] [phone] [place] [address] + [place] [address] STYPMARIANO DaveANN Unavailable [address] [phone] [place] [address] COLIN GALLAGHER Unavailable Unavailable + STYPYOLI Dave Unavailable Unavailable + COW Unavailable [address] + [place] [address] STYPJolie CIERRA Unavailable [address] [phone] [place] [address] + [place] [address] STYPJolie CIERRA Unavailable [address] [phone] [place] [address] Care Team Providers Name Role Phone Dr. Sara Rao Admitting Unavailable Dr. Sara Rao Attending Unavailable Dr. Sara Rao Referring Unavailable FREE, TEXT ENTRY Primary Care Unavailable Huml, Dr. Valery Nolan Admitting Unavailable Huml, Dr. Valery Nolan Attending Unavailable Dr. Sara Rao Referring Unavailable FREE, TEXT ENTRY Primary Care Unavailable Dr. Sara Rao Attending Unavailable Huml, Dr. Valery Nolan Referring Unavailable FREE, TEXT ENTRY Primary Care Unavailable Dr. Sara Rao Attending Unavailable FREE, TEXT ENTRY Primary Care Unavailable Bella, Mike Primary Care Unavailable JUSTIN WREN Attending Unavailable Nakul Crenshaw Referring Unavailable Bella, Mike Primary Care Unavailable JUSTIN WREN Attending Unavailable JUSTIN WREN Referring Unavailable JUSTIN WREN Attending Unavailable JUSTIN WREN Referring Unavailable Bella, Mike Primary Care Unavailable Litzy Kern Attending Unavailable Bella, Mike Primary Care Unavailable Bella, Mike Attending Unavailable Bella, Mike Primary Care Unavailable White, Jesica Admitting Unavailable Cheng Santos Consulting Unavailable Keli Metzger Attending Unavailable Darin Williamson Consulting Unavailable White, Jesica Admitting Unavailable White, Jesica Attending Unavailable Bella, Mike Primary Care Unavailable White, Jesica Consulting Unavailable White, Jesica Admitting Unavailable Sementi, Keli Attending Unavailable [facility] Unavailable Danielle, Cheng Consulting Unavailable Damion, Jayaprakash Consulting Unavailable Sementi, Keli Consulting Unavailable White, Jesica Admitting Unavailable Sementi, Keli Attending Unavailable [facility] Unavailable Danielle, Cheng Consulting Unavailable Damion, Jayaprakash Consulting Unavailable Sementi, Keli Consulting Unavailable White, Jesica Admitting Unavailable Bella, Mike Primary Care Unavailable Dainelle, Cheng Consulting Unavailable JASS Arauz Attending Unavailable Damion, Jayaprakash Consulting Unavailable Sementi, Keli Consulting Unavailable White, Jesica Admitting Unavailable Sementi, Keli Attending Unavailable [facility] Unavailable Danielle, Cheng Consulting Unavailable Damion, Jayaprakash Consulting Unavailable Sementi, Keli Consulting Unavailable [facility] Unavailable Jopperi, Ambrosio Admitting Unavailable Paintsil, [place] Attending Unavailable Jopperi, Ambrosio Admitting Unavailable Jopperi, Ambrosio Attending Unavailable [facility] Unavailable Jopperi, Ambrosio Consulting Unavailable Sementi, Keli Attending Unavailable White, Jesica Admitting Unavailable [facility] Unavailable Danielle, Cheng Consulting Unavailable Bakhous, Aziz Consulting Unavailable Sementi, Keli Consulting Unavailable [facility] Unavailable Jose Armando Mosqueda Attending Unavailable JUSTIN WREN Attending Unavailable JUSTIN WREN Referring Unavailable Bella, Mike Primary Care Unavailable Jeannie, Rafael Consulting Unavailable Bella, Mike Attending Unavailable Bella, Mike Primary Care Unavailable [facility] Primary [facility] Unavailable Tereletsky, Luis Armando Admitting Unavailable Jopperi, Ambrosio Attending Unavailable Tereletsky, Luis Armando Admitting Unavailable Tereletsky, Luis Armando Attending Unavailable [facility] Primary Care Unavailable Tereletsky, Luis Armando Consulting Unavailable JUSTIN WREN Attending Unavailable JUSTIN WREN Referring Unavailable [facility] Mike Primary Care Unavailable Jeannie, Rafael Consulting Unavailable Ha Lyle Attending Unavailable Ha Lyle Referring Unavailable [facility] Mike Primary Care Unavailable [facility], Mike Primary Care Unavailable White, Jesica Admitting Unavailable Teresa Thrasher Attending Unavailable Fredi Padilla D.O. Consulting Unavailable White, Jesica Attending Unavailable [facility] Mike Primary Care Unavailable White, Jesica Admitting Unavailable Fredi Padilla D.O. Attending Unavailable Bella, Mike Primary Care Unavailable Fredi Padilla D.O. Consulting Unavailable Teresa Thrasher Consulting Unavailable Ha Lyle Attending Unavailable Ha Lyle Referring Unavailable Bella, Mike Primary Care Unavailable Bella, Mike Attending Unavailable Bella, Mike Referring Unavailable Bella, Mike Primary Care Unavailable Bella, Mike Primary Care Unavailable Liam Pelayo Attending Unavailable JUSTIN WREN Attending Unavailable JUSTIN WREN Referring Unavailable Bella, Mike Primary Care Unavailable Jeannie, Rafael Consulting Unavailable Bella, Mike Attending Unavailable Bella, Mike Primary Care Unavailable JUSTIN WREN Attending Unavailable JUSTIN WREN Referring Unavailable Bella, Mike Primary Care Unavailable Jeannie, Rafael Consulting Unavailable Lisa Hernández Attending Unavailable JUSTIN WREN Attending Unavailable JUSTIN WREN Referring Unavailable Bella, Mike Primary Care Unavailable Jeannie, Rafael Consulting Unavailable Bella, Mike Primary Care Unavailable Ambrosio Munguia Attending Unavailable Fredi Padilla D.O. Attending Unavailable Bella, Mike Referring Unavailable Nazario MezaO. Attending Unavailable Nazario MezaOSaad Referring Unavailable Bella, Mike Primary Care Unavailable Siria Harp Attending Unavailable Bella, Mike Referring Unavailable JUSTIN WREN Attending Unavailable JUSTIN WREN Referring Unavailable Bella, Mike Primary Care Unavailable Jeannie, Rafael Consulting Unavailable Bella, Mike Primary Care Unavailable White, Jesica Admitting Unavailable White, Jesica Attending Unavailable Wyneski, Lauren Consulting Unavailable White, Jesica Admitting Unavailable White, Jesica Attending Unavailable Bella, Mike Primary Care Unavailable White, Jesica Consulting Unavailable White, Jesica Admitting Unavailable Koram, Sarah Skyla Attending Unavailable Bella, Mike Primary Care Unavailable Koram, Sarah Skyla Consulting Unavailable White, Jesica Admitting Unavailable Koram, Sarah Skyla Attending Unavailable Bella, Mike Primary Care Unavailable Wyneski, Lauren Consulting Unavailable Koram, Sarah Skyla Consulting Unavailable White, Jesica Admitting Unavailable Koram, Sarah Skyla Attending Unavailable Bella, Mike Primary Care Unavailable Wyneski, Lauren Consulting Unavailable Koram, Sarah Skyla Consulting Unavailable White, Jesica Admitting Unavailable White, Jesica Attending Unavailable Bella, Mike Primary Care Unavailable Wyneski, Lauren Consulting Unavailable Koram, Sarah Skyla Consulting Unavailable White, Jesica Admitting Unavailable White, Jesica Attending Unavailable Bella, Mike Primary Care Unavailable Lauren Cuevas Consulting Unavailable White, Jesica Consulting Unavailable Gentry, Mikey Chi Admitting Unavailable Bella, Mike Primary Care Unavailable Nakul Crenshaw Consulting Unavailable Rayo [place] Attending Unavailable Cheng Santos Consulting Unavailable Bella, Mike Attending Unavailable Bella, Mike Attending Unavailable Bella, Mike Attending Unavailable Bella, Mike Attending Unavailable Bella, Mike Primary Care Unavailable Vania Sullivan Attending Unavailable Bella, Mike Attending Unavailable Bella, Mike Attending Unavailable Bella, Mike Attending Unavailable Bella, Mike Attending Unavailable Bella, Mike Attending Unavailable Bella, Mike Attending Unavailable PROBLEMS PROBLEMS DATE TYPE CONDITION / CODE ATTENDING STATUS SOURCE 04/14/2018 Final diagnosis Kidney transplant Dr. Trina Rao [place] (discharge) status / [facility] Z94.0(ICD-10) Repository 04/14/2018 Final diagnosis Disorder involving Dr. Trina Rao [place] (discharge) the immune [facility] mechanism, Repository unspecified / D89.9(ICD-10) 04/08/2018 Unknown Z94.0 - Kidney Jena, Mike Active [facility] transplant status Community / Z94.0(ICD-10) Hospital Repository 03/15/2018 Final diagnosis Constipation, Dr. 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 Community R06.02(ICD-10) Hospital Repository 12/15/2017 Unknown I26.99 - Other Fredi Padilla, Active [facility] pulmonary embolism [facility] Community without acute cor Hospital pulmonale / Repository I26.99(ICD-10) 11/23/2017 Final diagnosis Essential Huml, Dr. Rasmussen Active [place] (discharge) (primary) [facility] hypertension / Repository I10(ICD-10) 11/18/2017 Unknown J18.9 - Pneumonia, Ha Lyle Active [facility] unspecified E Community organism / Hospital J18.9(ICD-10) Repository 10/29/2017 Unknown R31.9 - Hematuria, JUSTIN WREN Active [place] unspecified / Community R31.9(ICD-10) Hospital Repository 10/20/2017 Unknown R05 - Cough / Mike Bella Active [facility] R05(ICD-10) [facility] Hospital Repository 11/08/2017 Unknown J40 - Bronchitis, [place], Active [facility] not specified as [facility] Community acute or chronic / Hospital J40(ICD-10) Repository 10/20/2017 Unknown R07.9 - Chest Jopperi, Ambrosio Active [facility] pain, unspecified Community / R07.9(ICD-10) Hospital Repository 01/18/2018 Unknown Z51.89 - Encounter Jena Mike Active [facility] for other Community specified Hospital aftercare / Repository Z51.89(ICD-10) 10/25/2017 Unknown N39.0 - Urinary Sementi, Active [place] tract infection, Keli Community site not specified Hospital / N39.0(ICD-10) Repository 08/31/2017 Unknown N18.9 - Chronic Concha, Litzy Active [place] kidney disease, M Community unspecified / Hospital N18.9(ICD-10) Repository 07/06/2017 Final diagnosis Urinary tract Dr. Jeanne Active [place] (discharge) infection, site [facility] not specified / Repository N39.0(ICD-10) PROCEDURES PROCEDURES No Procedure Records FoundRESULTS RESULTS ESTABLISHED VISIT Observed: 04/14/2018 Status: UNK Source: [facility] (NEPHROLOGY) 10:55 AM HOSPITALS REPOSITORY Chief Complaint Post Kidney Transplant Follow Up History of Present Illness REFERRING DOCTOR: Dr. TOMASA HAN [phone] DEMOGRAPHICS: Ethnicity: Non- or Gender: Male PRIMARY DISEASE Primary Dx: Obstructive Uropathy DIALYSIS VINTAGE 08/09/2012-03/28/16 -DONOR/TRANSPLANT TYPE- [X] a donor renal transplant on: 03/28/16 KDPI: 35-85% [X] NOT DCD [ ] NOT High Risk [ ] High Risk -REJECTIONS- [X] No episodes of rejection [ ] Other: -OPPORTUNISTIC INFECTION- [ ] No episodes of opportunistic infection [X] Other: UTI, resolved -MALIGNANCIES AFTER TRANSPLANT- [X] No episodes of post transplant malignancy [ ] Other: -FUNCTIONAL STATUS- Karnofsky score: 70 OTHER: Mr. Pinzon is a 52 y/o male s/p kidney transplant in 2015. Pt was in hospital in Jan. for UTI, treated adequately. Today, the pt reports he is self-cathing 4 times a day and says it is going better than before. Family of pt says they will most likely be moving him to an assisted living facility. For a fee, the facility will deliver his medication and make sure he is cathing correctly. Pt is excite d about moving to a new wing of the assisted living facility. Today the patient denies any headaches, focal weakness or tingling, sob, chest pain, cough, fever, chills, nausea, vomiting, diarrhea, constipation, difficulty with bladder emptying, dysuria, hematuria. Patient denies difficulties obtaining medications. Patient denies active tobacco use. Active Problems Chronic kidney disease, stage 3 (585.3) (N18.3) Constipation (564.00) (K59.00) DVT (deep venous thrombosis) (453.40) (I82.409) High risk medication use (V58.69) (Z79.899) Hypertension (401.9) (I10) Immunosuppression (279.9) (D89.9) Kidney replaced by transplant (V42.0) (Z94.0) Pre-transplant evaluation for ESRD (end stage renal disease) (V72.83) (Z01.818) Recurrent UTI (urinary tract infection) (599.0) (N39.0) Past Medical History History of Atony, bladder (596.4) (N31.2) History of End stage renal disease (585.6) (N18.6) Surgical History History of Arteriovenous Surgery Creation Of A-V Fistula Family History Family history of osteoporosis (V17.81) (Z82.62) Social History Never smoker Allergies No Known Allergies Recorded By: David Rasmussen; 08/08/2013 2:56:40 PM Current Meds Eliquis 2.5 MG Oral Tablet; 1 tablet bid; Therapy: 15Mar2018 to Recorded Rx By: Sara Rao; Dispense: 0 Days ; #: Sufficient Tablet; Refill: 0;For: Constipation; ADRIAN = N; Record; Last Updated By: Gardenia Ortega; 03/15/2018 10:30:05 AM J-Aidg-Omemblt 155-852-130 MG Oral Tablet; TAKE 1 TABLET 4 TIMES DAILY; Therapy: 15Mar2018 to Recorded Rx By: Sara Rao; Dispense: 0 Days ; #: Sufficient Tablet; Refill: 0;For: Constipation; ADRIAN = N; Record; Last Updated By: Gardenia Ortega; 03/15/2018 10:30:05 AM MiraLax Oral Packet; MIX 1 PACKET IN 8 OUNCES OF LIQUID AND DRINK ONCE DAILY; Therapy: 15Mar2018 to Recorded Rx By: Sara Rao; Dispense: 0 Days ; #: Sufficient Packet; Refill: 0;For: Constipation; ADRIAN = N; Record; Last Updated By: Gardenia Ortega; 03/15/2018 10:30:05 AM RaNITidine HCl - 150 MG Oral Tablet; TAKE 1 TABLET EVERY 12 HOURS NEEDED; Therapy: 15Mar2018 to Recorded Rx By: Sara Rao; Dispense: 0 Days ; #: Sufficient Tablet; Refill: 0;For: Constipation; ADRIAN = N; Record; Last Updated By: Gardenia Ortega; 03/15/2018 10:30:05 AM Senna Laxative 8.6 MG Oral Tablet; TAKE DIRECTED 1 tablet daily as needed; Therapy: 15Mar2018 to Recorded Rx By: Sara Rao; Dispense: 0 Days ; #: Sufficient Tablet; Refill: 0;For: Constipation; ADRIAN = N; Record; Last Updated By: Gardenia Ortega; 03/15/2018 10:30:05 AM Acidophilus Oral Capsule; TAKE DIRECTED 2 times qd; Therapy: 15Mar2018 to Recorded Rx By: Sara Rao; Dispense: 0 Days ; #: Sufficient Capsule; Refill: 0;For: Health Maintenance; ADRIAN = N; Record; Last Updated By: Gardenia Ortega; 03/15/2018 10:30:05 AM AmLODIPine Besylate 5 MG Oral Tablet; Take one by mouth at bedtime; Therapy: 13Aug2016 to (Evaluate:20Jun2018) Requested for: 25Jun2017; Last Rx:25Jun2017 Ordered Rx By: Sara Rao; Dispense: 30 Days ; #:30 TAB; Refill: 11;For: Hypertension; ADRIAN = N; Verified Transmission to [address]; Last Updated By: Areli Brasher; 06/25/2017 4:52:58 PM Mycophenolate Mofetil 250 MG Oral Capsule; TAKE 2 CAPSULE Twice daily Requested for: 31May2017; Last Rx:07May2017 Ordered Rx By: Isac Thao; Dispense: 90 Days ; #:360 Capsule; Refill: 3;For: Immunosuppression, Kidney replaced by transplant; ADRIAN = N; Verified Transmission to [address] Tacrolimus 1 MG Oral Capsule; TAKE TWO CAPSULE BY MOUTH TWICE DAILY; Therapy: 29Oct2016 to (Evaluate:10Mar2019) Requested for: 15Mar2018 Recorded Rx By: Sara Rao; Dispense: 30 Days ; #:60 Capsule; Refill: 11;For: Immunosuppression, Kidney replaced by transplant; ADRIAN = N; Record; Last Updated By: Gardenia Ortega; 03/15/2018 10:55:37 AM Sulfamethoxazole-Trimethoprim 800-160 MG Oral Tablet; TAKE 1 TABLET DAILY; Therapy: (Recorded:15Mar2018) to Recorded Dispense: 0 Days ; #: Sufficient Tablet; Refill: 0;For: Kidney replaced by transplant, Recurrent UTI (urinary tract infection); ADRIAN = N; Record; Last Updated By: Gardenia Ortega; 03/15/2018 10:17:01 AM Vitals Vital Signs Recorded: [id number] 10:06AM Wgwlbudcqoy09.2 F, Oral Heart Wncx711 Qjkidlqx812 Juzyvqzux35 Height6 ft 1 in Wkpkss538 lb 3.2 oz BMI Mprvmsxxnm65.3 BSA Calculated2.08 O2 Rwrglnapup96, RA Physical Exam Constitutional: No acute distress, well appearing and well nourished. Psychiatric: Orientation to person, place, and time. Appropriate mood and affect. Neurologic: Grossly nonfocal. Asterixis is not present. Neck: No thyromegaly, jugular venous distension or audible carotid bruits. Cardiovascular: Auscultation of heart: Normal rate and rhythm, normal S1 and S2, no murmurs. There was no pericardial friction rub. Pulmonary: lungs are clear to auscultation. Abdomen: Soft, non tender to palpation, normoactive bowel sounds. No organomegaly, masses or audible bruits. Kidneys: Both lower kidney pole were not palpable. Costovertebral Angle: Non tender with percussion. Extremities: Exam of extremities for edema was normal. No clubbing of the fingernails and no cyanosis. Skin: Warm, pink, well conditioned; no rashes or lesions. No livedo reticularis. Lymphatic: No lymphadenopathy. Diagnoses/Problems Immunosuppression (279.9) (D89.9) Kidney replaced by transplant (V42.0) (Z94.0) Provider Impressions -STAGE OF CKD- [ ] 1 [ ] 2 [X] 3 [ ] 4 [ ] 5 Baseline Creatinine: [ ] eGFR: 53 -ALLOGRAFT FUNCTION- [X] Good [ ] Stable though impaired [ ] Present: -PROTEINURIA- [ X] Not clinically significant [ ] Present: -IMMUNOSUPPRESSION LEVELS- [X ] Adequate [ ] High [ ] Low [ ] Not applicable -BK POLYOMA- [X ] Absent [ ] Present -BLOOD PRESSURE CONTROL- [ ] Adequate [X] Not Adequate - BP is high today -BLOOD COUNTS- [ ] Normal [X ] Leukopenia [ ] Anemia [ ] Thrombocytopenia [X] Polycythemia [ ] Other: -ELECTROLYTES/ACID BASE- [ ] Normal [X ] Other: High Chloride -CALCIUM/PHOSPHORUS- [ ] Normal [X ] Other: Low Calcium Patient Discussion/Summary -IMMUNOSUPPRESSION- [X ] No Changes [ ] The Following Changes: -[employer]- Level: 5-8 [X] Tacrolimus [ ] Cyclosporine [ ] Sirolimus [ ] Everolimus [ ] Other: -RETURN TO CLINIC- [X] In 3 Months -LAB FREQUENCY- [X ] Every Month -PLAN- -Instructed family and patient to speak with Urologist about pt's prostate size and issues with self-cathing. -I suggested the family to inform the facility to fax over the labs sooner, about a week out. By signing my name below, I, Krystina Montelongoibe, attest that this documentation has been prepared under the direction and in the presence of Dr. Sara Rao. All medical record entries made by the Scribe were at my direction and personally dictated by me. I have reviewed the chart and agree that the record accurately reflects my personal performance of the h istory, physical exam, discussion and plan. Signatures Electronically signed by : Saar Rao MD; Apr 14 2018 10:55AM EST (Author) CBC-COMPLETE BLOOD CNT Collected: 04/13/2018 Status: F Source: MELVIN NO DIFF 8:05 AM [facility] REPOSITORY TYPE CODE TESTS RESULT OUT OF RANGE REFERENCE UNITS LAB L100.1000 4.4-11.0 K/mm3 Low WBC 3.8 LAB L100.1200 4.6-6.2 M/mm3 Normal RBC 4.87 LAB L100.1300 13.0-16.5 g/dl Low HGB 12.4 LAB L100.1400 40-54 % Low HCT 38.8 LAB L100.1500 80-94 fL Low MCV 79.7 LAB L100.1600 27.0-32.0 pg Low MCH 25.5 LAB L100.1700 32-36 g/gl Normal MCHC 32.0 LAB L100.1810 11.6-14.6 % High RDW CV 15.7 LAB L100.1820 35.1-43.9 fl High RDW SD 45.1 LAB L100.1900 150-450 K/mm3 Normal PLT 181 LAB L100.2000 6.2-12.0 fl Normal MPV 10.9 Performed By: #### L100.0500 #### [facility] [address] [place], [address] BASIC METABOLIC Collected: 04/13/2018 Status: F Source: MELVIN PROFILE (BMP) 8:05 AM [facility] REPOSITORY TYPE CODE TESTS RESULT OUT OF RANGE REFERENCE UNITS LAB L501.0100 74-106 mg/dL Normal GLU 81 Result Comment: Please note revised GLUCOSE reference range effective 2017. LAB L501.1000 7-18 mg/dL Normal BUN 17 LAB L501.1100 0.70-1.30 mg/dL High CREAT,SERUM 1.49 Result Comment: The validity of the calculated GFR AND GFRAA in patients over 70 years has not been determined. Clinical correlation is essential. LAB L501.1110 >60 mL/min Low EST GFR 53 Result Comment: Non- GFR Calc LAB L501.1115 >60 mL/min Normal EST GFR - AA 64 Result Comment: GFR Calc LAB L501.1300 10-20 RATIO Normal BUN/CRE 11.4 LAB L501.2200 8.5-10.1 mg/dL Low CA 8.0 LAB L501.5300 136-145 mmol/L NA Normal 144 LAB L501.5600 3.5-5.1 mmol/L K Normal 3.9 LAB L501.5900 98-107 mmol/L High CL 110 LAB L501.6100 21.0-32.0 mmol/L Normal CO2 25.0 LAB L501.6200 5-15 Normal GAP 9 Performed By: #### L500.2500, L501.1800 #### [facility] [address], [place], [id number] ALBUMIN, SERUM Collected: 04/13/2018 Status: F Source: MODESTO 8:05 AM [facility] REPOSITORY TYPE CODE TESTS RESULT OUT OF RANGE REFERENCE UNITS LAB L501.1800 3.2-5.0 g/dL Normal ALB 3.4 Performed By: #### L500.2500, L501.1800 #### [facility] [address] [place], [place], [address] TACROLIMUS (PROGRAF) Collected: 04/13/2018 Status: F Source: MO[place] 8:05 AM [facility] REPOSITORY TYPE CODE TESTS RESULT OUT OF RANGE REFERENCE UNITS LAB L3380.1100 2.0-20.0 ng/mL Normal TACROLIMUS 5.2 Result Comment: Trough (immediately following transplant) 15.0 Trough (steady state, 2 weeks or more after transplant): 3.0 - 8.0 Detection Limit = 1.0 Performed by LC-MS/MS technology. Performed at: - [facility] [address] [id number] Print Binding Worker: Ivelisse Orourke MD, Phone: [phone] Performed By: #### L3380.1000 #### [facility] (refer to report for specific site) refer to report for address and phone number CBC-COMPLETE BLOOD CNT Collected: 04/06/2018 Status: F Source: MELVIN NO DIFF 7:00 AM [facility] REPOSITORY Order Comment: ROOM 127 TYPE CODE TESTS RESULT OUT OF RANGE REFERENCE UNITS LAB L100.1000 4.4-11.0 K/mm3 Low WBC 3.9 LAB L100.1200 4.6-6.2 M/mm3 Normal RBC 4.63 LAB L100.1300 13.0-16.5 g/dl Low HGB 11.9 LAB L100.1400 40-54 % Low HCT 37.4 LAB L100.1500 80-94 fL Normal MCV 80.8 LAB L100.1600 27.0-32.0 pg Low MCH 25.7 LAB L100.1700 32-36 g/gl Low MCHC 31.8 LAB L100.1810 11.6-14.6 % High RDW CV 15.9 LAB L100.1820 35.1-43.9 fl High RDW SD 46.3 LAB L100.1900 150-450 K/mm3 Normal PLT 196 LAB L100.2000 6.2-12.0 fl Normal MPV 11.3 Performed By: #### L100.0500 #### [facility] [address] [place], [address] BASIC METABOLIC Collected: 04/06/2018 Status: F Source: MELVIN PROFILE (BMP) 7:00 AM [facility] REPOSITORY Order Comment: ROOM 127 TYPE CODE TESTS RESULT OUT OF RANGE REFERENCE UNITS LAB L501.0100 74-106 mg/dL Normal GLU 81 Result Comment: Please note revised GLUCOSE reference range effective 2017. LAB L501.1000 7-18 mg/dL Normal BUN 14 LAB L501.1100 0.70-1.30 mg/dL High CREAT,SERUM 1.56 Result Comment: The validity of the calculated GFR AND GFRAA in patients over 70 years has not been determined. Clinical correlation is essential. LAB L501.1110 >60 mL/min Low EST GFR 50 Result Comment: Non- GFR Calc LAB L501.1115 >60 mL/min Normal EST GFR - AA 61 Result Comment: GFR Calc LAB L501.1300 10-20 RATIO Low BUN/CRE 9.0 LAB L501.2200 8.5-10.1 mg/dL Low CA 7.6 LAB L501.5300 136-145 mmol/L Normal NA 142 LAB L501.5600 3.5-5.1 mmol/L Normal K 4.0 LAB L501.5900 98-107 mmol/L High CL 109 LAB L501.6100 21.0-32.0 mmol/L Normal CO2 26.0 LAB L501.6200 5-15 Normal GAP 7 Performed By: #### L500.2500 #### [facility] [place], [address] BASIC METABOLIC Collected: 03/30/2018 Status: F Source: MODESTO PROFILE (BMP) 6:45 AM [facility] REPOSITORY Order Comment: 127 TYPE CODE TESTS RESULT OUT OF RANGE REFERENCE UNITS LAB L501.0100 74-106 mg/dL Normal GLU 83 Result Comment: Please note revised GLUCOSE reference range effective 2017. LAB L501.1000 7-18 mg/dL Normal BUN 17 LAB L501.1100 0.70-1.30 mg/dL High CREAT,SERUM 1.47 Result Comment: The validity of the calculated GFR AND GFRAA in patients over 70 years has not been determined. Clinical correlation is essential. LAB L501.1110 >60 mL/min Low EST GFR 54 Result Comment: Non- GFR Calc LAB L501.1115 >60 mL/min Normal EST GFR - AA 65 Result Comment: GFR Calc LAB L501.1300 10-20 RATIO Normal BUN/CRE 11.6 LAB L501.2200 8.5-10.1 mg/dL Low CA 7.8 LAB L501.5300 136-145 mmol/L NA Normal 141 LAB L501.5600 3.5-5.1 mmol/L K Normal 3.7 LAB L501.5900 98-107 mmol/L High CL 109 LAB L501.6100 21.0-32.0 mmol/L Normal CO2 24.0 LAB L501.6200 5-15 Normal GAP 8 Performed By: #### L500.2500 #### [facility] [address], [place], [address] CBC-COMPLETE BLOOD CNT Collected: 03/30/2018 Status: F Source: MELVIN NO DIFF 6:45 AM [facility] REPOSITORY Order Comment: 127 TYPE CODE TESTS RESULT OUT OF RANGE REFERENCE UNITS LAB L100.1000 4.4-11.0 K/mm3 Low WBC 3.8 LAB L100.1200 4.6-6.2 M/mm3 Normal RBC 4.71 LAB L100.1300 13.0-16.5 g/dl Low HGB 12.0 LAB L100.1400 40-54 % Low HCT 38.0 LAB L100.1500 80-94 fL Normal MCV 80.7 LAB L100.1600 27.0-32.0 pg Low MCH 25.5 LAB L100.1700 32-36 g/gl Low MCHC 31.6 LAB L100.1810 11.6-14.6 % High RDW CV 15.8 LAB L100.1820 35.1-43.9 fl High RDW SD 46.0 LAB L100.1900 150-450 K/mm3 Normal PLT 223 LAB L100.2000 6.2-12.0 fl Normal MPV 11.0 Performed By: #### L100.0500 #### [facility] [address] [place], [place], [address] BASIC METABOLIC Collected: 03/23/2018 Status: F Source: MELVIN PROFILE (BMP) 5:55 AM [facility] REPOSITORY Order Comment: 127 TYPE CODE TESTS RESULT OUT OF RANGE REFERENCE UNITS LAB L501.0100 74-106 mg/dL Normal GLU 78 Result Comment: Please note revised GLUCOSE reference range effective 2017. LAB L501.1000 7-18 mg/dL Normal BUN 17 LAB L501.1100 0.70-1.30 mg/dL High CREAT,SERUM 1.60 Result Comment: The validity of the calculated GFR AND GFRAA in patients over 70 years has not been determined. Clinical correlation is essential. LAB L501.1110 >60 mL/min Low EST GFR 49 Result Comment: Non- GFR Calc LAB L501.1115 >60 mL/min Low EST GFR - AA 59 Result Comment: GFR Calc LAB L501.1300 10-20 RATIO Normal BUN/CRE 10.6 LAB L501.2200 8.5-10.1 mg/dL Low CA 7.6 LAB L501.5300 136-145 mmol/L NA Normal 142 LAB L501.5600 3.5-5.1 mmol/L K Normal 3.8 LAB L501.5900 98-107 mmol/L High CL 110 LAB L501.6100 21.0-32.0 mmol/L Normal CO2 24.0 LAB L501.6200 5-15 Normal GAP 8 Performed By: #### L500.2500 #### [facility] [address], [place], [id number] CBC-COMPLETE BLOOD CNT Collected: 03/23/2018 Status: F Source: [place] NO DIFF 5:55 AM [facility] REPOSITORY Order Comment: 127 TYPE CODE TESTS RESULT OUT OF RANGE REFERENCE UNITS LAB L100.1000 4.4-11.0 K/mm3 Low WBC 4.2 LAB L100.1200 4.6-6.2 M/mm3 Low RBC 4.47 LAB L100.1300 13.0-16.5 g/dl Low HGB 11.3 LAB L100.1400 40-54 % Low HCT 36.4 LAB L100.1500 80-94 fL Normal MCV 81.4 LAB L100.1600 27.0-32.0 pg Low MCH 25.3 LAB L100.1700 32-36 g/gl Low MCHC 31.0 LAB L100.1810 11.6-14.6 % High RDW CV 15.7 LAB L100.1820 35.1-43.9 fl High RDW SD 46.1 LAB L100.1900 150-450 K/mm3 Normal PLT 236 LAB L100.2000 6.2-12.0 fl Normal MPV 11.6 Performed By: #### L100.0500 #### [facility] [address], [place], [id number] CBC-COMPLETE BLOOD CNT Collected: 03/16/2018 Status: F Source: MELVIN NO DIFF 5:55 AM [facility] REPOSITORY Order Comment: ROOM 127 TYPE CODE TESTS RESULT OUT OF RANGE REFERENCE UNITS LAB L100.1000 4.4-11.0 K/mm3 Normal WBC 5.2 LAB L100.1200 4.6-6.2 M/mm3 Normal RBC 4.82 LAB L100.1300 13.0-16.5 g/dl Low HGB 12.3 LAB L100.1400 40-54 % Low HCT 39.4 LAB L100.1500 80-94 fL Normal MCV 81.7 LAB L100.1600 27.0-32.0 pg Low MCH 25.5 LAB L100.1700 32-36 g/gl Low MCHC 31.2 LAB L100.1810 11.6-14.6 % High RDW CV 15.8 LAB L100.1820 35.1-43.9 fl High RDW SD 47.1 LAB L100.1900 150-450 K/mm3 Normal PLT 254 LAB L100.2000 6.2-12.0 fl Normal MPV 11.4 Performed By: #### L100.0500 #### [facility] [address] [place], [address] RENAL PROFILE Collected: 03/16/2018 Status: F Source: MELVIN 5:55 AM [facility] REPOSITORY Order Comment: ROOM 127 TYPE CODE TESTS RESULT OUT OF RANGE REFERENCE UNITS LAB L501.0100 74-106 mg/dL Normal GLU 86 Result Comment: Please note revised GLUCOSE reference range effective 2017. LAB L501.1000 7-18 mg/dL Normal BUN 17 LAB L501.1100 0.70-1.30 mg/dL High CREAT,SERUM 1.50 Result Comment: The validity of the calculated GFR AND GFRAA in patients over 70 years has not been determined. Clinical correlation is essential. LAB L501.1110 >60 mL/min Low EST GFR 53 Result Comment: Non- GFR Calc LAB L501.1115 >60 mL/min Normal EST GFR - AA 64 Result Comment: GFR Calc LAB L501.1300 10-20 RATIO Normal BUN/CRE 11.3 LAB L501.1800 3.2-5.0 g/dL Normal ALB 3.6 LAB L501.2200 8.5-10.1 mg/dL Low CA 8.2 LAB L501.2300 2.5-4.9 mg/dL Normal PHOS 3.0 LAB L501.5300 136-145 mmol/L NA Normal 143 LAB L501.5600 3.5-5.1 mmol/L K Normal 4.4 LAB L501.5900 98-107 mmol/L High CL 109 LAB L501.6100 21.0-32.0 mmol/L Normal CO2 24.0 Performed By: #### L500.3600 #### [facility] [address] [place], [address] TACROLIMUS (PROGRAF) Collected: 03/16/2018 Status: F Source: MODE[place]O 5:55 AM [facility] REPOSITORY Order Comment: ROOM 127 TYPE CODE TESTS RESULT OUT OF RANGE REFERENCE UNITS LAB L3380.1100 2.0-20.0 ng/mL Normal TACROLIMUS 7.1 Result Comment: Trough (immediately following transplant) 15.0 Trough (steady state, 2 weeks or more after transplant): 3.0 - 8.0 Detection Limit = 1.0 Performed by LC-MS/MS technology. Performed at: - [facility] [id number] Print Binding Worker: Ivelisse Orourke MD, Phone: [phone] Performed By: #### L3380.1000 #### [facility] (refer to report for specific site) refer to report for address and phone number ESTABLISHED VISIT Observed: 03/15/2018 Status: UNK Source: F[facility] POINTS (NEPHROLOGY) 11:51 AM [facility] Chief Complaint Post Kidney Transplant Follow Up History of Present Illness REFERRING DOCTOR: Dr. Tomasa Han DEMOGRAPHICS: Ethnicity: Declined Gender: male PRIMARY DISEASE Primary Dx: Obstructive uropathy DIALYSIS VINTAGE 08/09/2012 -DONOR/TRANSPLANT TYPE- [x ] a donor renal transplant on: 03/29/2016 KDPI: 35-85% [ ] NOT DCD [ ] DCD [ ] NOT High Risk [ ] High Risk -REJECTIONS- [x ] No episodes of rejection [ ] Other: -OPPORTUNISTIC INFECTION- [ ] No episodes of opportunistic infection [ x] Other: UTI, resolved -MALIGNANCIES AFTER TRANSPLANT- [ x] No episodes of post transplant malignancy [ ] Other: -FUNCTIONAL STATUS- Karnofsky score: 60 Limitations: OTHER: Mr. Pinzon is a 52 y/o male s/p kidney transplant in 2015. Pt is at a nursing facility but sister has taken over his care because mother is sick. SIster is having a hard time figuring out his Rx. Pt was in hospital in Jan. for UTI, treated adequately. Pt has self catheter, ga catheter was removed last week. Does the self cath q 4 times. Pt says he needs more help. Says bronchial issues have robby e away. Says he has had lot of soreness below the belly. Does not know when he will be leaving nursing facility. He has a urology f/u scheduled. Today the patient denies any headaches, focal weakness or tingling, sob, chest pain, cough, fever, chills, nausea, vomiting, diarrhea, constipation, difficulty with bladder emptying, dysuria, hematuria. Patient denies difficulties obtaining medications. Patient denies active tobacco use. Review of Systems Constitutional: no fever, no chills, no recent weight gain and no recent weight loss. Eyes: no blurred vision and no diplopia. ENT: no hearing loss, no earache, no sore throat, no swollen glands in the neck and no nasal discharge. Cardiovascular: no chest pain, no palpitations and no lower extremity edema. Respiratory: no shortness of breath, no chronic cough and no shortness of breath during exertion. Gastrointestinal: no abdominal pain, no constipation, no heartburn, no nausea, no vomiting, no bloody stools and no change in bowel habits. Genitourinary: no dysuria and no hematuria. Musculoskeletal: no arthralgias and no myalgias. Skin: no rashes and no skin lesions. Neurological: no headaches and no dizziness. Psychiatric: no confusion, no depression and no anxiety. Endocrine: no cold intolerance, no heat intolerance, no thyroid disorder, no dry skin and no increased urinary frequency. Hematologic/Lymphatic: does not bleed easily and does not bruise easily. Active Problems Chronic kidney disease, stage 3 (585.3) (N18.3) DVT (deep venous thrombosis) (453.40) (I82.409) High risk medication use (V58.69) (Z79.899) Hypertension (401.9) (I10) Immunosuppression (279.9) (D89.9) Kidney replaced by transplant (V42.0) (Z94.0) Pre-transplant evaluation for ESRD (end stage renal disease) (V72.83) (Z01.818) Recurrent UTI (urinary tract infection) (599.0) (N39.0) Past Medical History History of Atony, bladder (596.4) (N31.2) History of End stage renal disease (585.6) (N18.6) Surgical History History of Arteriovenous Surgery Creation Of A-V Fistula Family History Family history of osteoporosis (V17.81) (Z82.62) Social History Never smoker Allergies No Known Allergies Recorded By: David Rasmussen; 08/08/2013 2:56:40 PM Current Meds AmLODIPine Besylate 5 MG Oral Tablet; Take one by mouth at bedtime; Therapy: 13Aug2016 to (Evaluate:20Jun2018) Requested for: [id number]; Last Rx:[id number] Ordered Rx By: Sara Rao; Dispense: 30 Days ; #:30 TAB; Refill: 11;For: Hypertension; ADRIAN = N; Verified Transmission to [address]; Last Updated By: Areli Brasher; 06/25/2017 4:52:58 PM Mycophenolate Mofetil 250 MG Oral Capsule; TAKE 2 CAPSULE Twice daily Requested for: 31May2017; Last Rx:07May2017 Ordered Rx By: Isac Thao; Dispense: 90 Days ; #:360 Capsule; Refill: 3;For: Immunosuppression, Kidney replaced by transplant; ADRIAN = N; Verified Transmission to [address] Tacrolimus 1 MG Oral Capsule; TAKE TWO CAPSULE BY MOUTH TWICE DAILY; Therapy: 29Oct2016 to (Evaluate:10Mar2019) Requested for: 15Mar2018 Recorded Rx By: Sara Rao; Dispense: 30 Days ; #:60 Capsule; Refill: 11;For: Immunosuppression, Kidney replaced by transplant; ADRIAN = N; Record; Last Updated By: Gardenia Ortega; 03/15/2018 10:55:37 AM Sulfamethoxazole-Trimethoprim 800-160 MG Oral Tablet; TAKE 1 TABLET DAILY; Therapy: (Recorded:15Mar2018) to Recorded Dispense: 0 Days ; #: Sufficient Tablet; Refill: 0;For: Kidney replaced by transplant, Recurrent UTI (urinary tract infection); ADRIAN = N; Record; Last Updated By: Gardenia Ortega; 03/15/2018 10:17:01 AM Xarelto 20 MG Oral Tablet; Take 1 tablet daily; Therapy: [id number] to (Evaluate:52Iny8305) Recorded Dispense: 67 Days ; #:67 Tablet; Refill: 0; ADRIAN = N; Record; Last Updated By: Jahaira Luis; 03/15/2018 10:21:32 AM Vitals Vital Signs Recorded: 15Mar2018 10:07AM Sburgefvoru99 F, Oral Heart Fats329 Dnvgahjr222 Cwximwmxv12 Height6 ft 1 in Nxgtym025 lb 14.4 oz BMI Khjveznhxf18.26 BSA Calculated2.08 O2 Aybykilaeo88, RA Physical Exam Constitutional: Abnormal uses a walker. Psychiatric: Orientation to person, place, and time. Appropriate mood and affect. Neurologic: Grossly nonfocal. Asterixis is not present. Neck: No thyromegaly, jugular venous distension or audible carotid bruits. Cardiovascular: Auscultation of heart: Normal rate and rhythm, normal S1 and S2, no murmurs. There was no pericardial friction rub. Pulmonary: lungs are clear to auscultation. Abdomen: Soft, non tender to palpation, normoactive bowel sounds. No organomegaly, masses or audible bruits. Kidneys: Both lower kidney pole were not palpable. Costovertebral Angle: Non tender with percussion. Extremities: Exam of extremities for edema was normal. No clubbing of the fingernails and no cyanosis. Skin: Warm, pink, well conditioned; no rashes or lesions. No livedo reticularis. Lymphatic: No lymphadenopathy. Results/Data Becdsffgyj24Ykh3577 12:00AMPadiyar, Sara Test NameResultFlagReference FK506 Tacrolimus, Blood9.4 ng/mL2.0 - 15.0 NOTE: Result was obtained using a chemiluminescent microparticle immunoassay (CMIA) on the [employer] i system. Optimal therapeutic ranges for immuno- suppressant drugs depend upon an individual ashu ent's current clinical state, type of organ transplant, time post-transplant, co- administration of other immunosuppressants, and other clinical factors. The results of this test should be correlated wit h additional clinical and laboratory data before changes in treatment regimens are made. Complete Blood [id number] 08:18AMPadiyar, Sara Test NameResultFlagReference White Blood Cell Count3.9 x10E9/LL4.4 - 11.3 Red Blood Cell Count5.04 x10E12/LSee Below Reference Range: 4.50 - 5.90 Nucleated Erythrocyte Count0.0 /100 WBC0.0-0.0 Pcdwlladsz34.7 g/dLSee Below Reference Range: 13.5 - 17.5 HCT46.0 %See Below Reference Range: 41.0 - 52.0 MCV91 fL80 - 100 MCHC32.0 g/dLSee Below Reference Range: 32.0 - 36.0 Platelet Xbymv269 x10E9/L150 - 450 RDW-CV13.6 %See Below Reference Range: 11.5 - 14.5 Renal Function Kdlpd82Bsg4901 08:18AMPadiyar, Sara Test NameResultFlagReference Glucose, Serum68 mg/dLL74 - 99 Sodium, Rifld072 mmol/L136 - 145 POTASSIUM4.0 mmol/L3.5 - 5.3 Chloride, Dimyk893 mmol/LH98 - 107 Bicarbonate, Serum23 mmol/L21 - 32 Anion Gap, Serum12 mmol/L10 - 20 Blood Urea Nitrogen, Serum21 mg/dL6 - 23 CREATININE1.56 mg/dLHSee Below Reference Range: 0.50 - 1.30 GFR Non Ytzdxkpa59 mL/min/1.73m2A>60 GFR Qclpdxoy67 mL/min/1.73m2A>60 CALCULATIONS OF ESTIMATED GFR ARE PERFORMED USING THE MDRD STUDY EQUATION FOR THE IDMS-TRACEABLE CREATININE METHODS. CLIN CHEM 2007;53:766-72 Calcium, Serum8.9 mg/dL8.6 - 10.6 Phosphorus, Serum2.3 mg/dLL2.5 - 4.9 The performance characteristics of phosphorus testing in heparinized plasma have been validated by the individual laboratory site where testing is performed. Testing on heparinized plasma is not approved by the FDA; however, such approval is not necessary. Albumin, Serum4.0 g/dL3.4 - 5.0 Diagnoses/Problems Encounter for preventive health examination (V70.0) (Z00.00) Constipation (564.00) (K59.00) Kidney replaced by transplant (V42.0) (Z94.0) Immunosuppression (279.9) (D89.9) Provider Impressions -STAGE OF CKD- [ ] 1 [ ] 2 [x] 3 [ ] 4 [ ] 5 Baseline Creatinine: 1.4-1.6 eGFR: 47 -ALLOGRAFT FUNCTION- [x ] Good [ ] Stable though impaired [ ] Present: -PROTEINURIA- [x ] Not clinically significant [ ] Present: -DIAGNOSIS- [ ] Acute Cellular Rejection [ ] Acute Antibody Mediate Rejection [ ] Acute Mixed Rejection [ ] Recurrent Primary Disease [ ] Chronic Allograft Nephropathy [ ] Chronic Rejection [ ] Diabetic Nephropathy [ ] CNI Toxicity [ ] Obstructive Uropathy [ ] Volume Depletion [ ] ATN [ ] Cardio-Renal [ ] Other: -IMMUNOSUPPRESSION LEVELS- [ x] Adequate [ ] High [ ] Low [ ] Not applicable -BK POLYOMA- [x ] Absent [ ] Present -BLOOD PRESSURE CONTROL- 135/92 [x] Adequate [ ] Not Adequate -BLOOD COUNTS- [ ] Normal [ ] Leukopenia [x ] Anemia, mild and stable [ ] Thrombocytopenia [ ] Polycythemia [ ] Other: -ELECTROLYTES/ACID BASE- [ x] Normal [ ] Other: -CALCIUM/PHOSPHORUS- [x ] Normal [ ] Other: Patient Discussion/Summary -IMMUNOSUPPRESSION- [x ] No Changes [ ] The Following Changes: -[employer]UG [employer]- Level: 5-8 [ x] Tacrolimus [ ] Cyclosporine [ ] Sirolimus [ ] Everolimus [ ] Other: -RETURN TO CLINIC- [ ] Every Week [ ] Every Other Week [x ] Every Month [ ] In 2 Months [ ] In 3 Months [ ] In 4 Months [ ] In 6 Months [ ] In 1 Year -LAB FREQUENCY- [ ] Twice weekly [ ] Every Week [ ] Every Other Week [x ] Every Month [ ] Every Other Month [ ] Every 3 Months PLAN: - I will have a social media editor talk to sister -I will call to get labs from January By signing my name below, I, Eugenio Whitehead, attest that this documentation has been prepared under the direction and in the presence of Dr. Sara Rao. All medical record entries made by the Eugenio were at my direction and personally dictated by me. I have reviewed the chart and agree that the record accurately reflects my personal performance of the h istory, physical exam, discussion and plan. Signatures Electronically signed by : Sara Rao MD; Mar 15 2018 11:51AM EST (Author) CBC-COMPLETE BLOOD CNT Collected: 03/09/2018 Status: F Source: MELVIN NO DIFF 6:15 AM [facility] REPOSITORY Order Comment: RM 127 TYPE CODE TESTS RESULT OUT OF RANGE REFERENCE UNITS LAB L100.1000 4.4-11.0 K/mm3 Normal WBC 5.2 LAB L100.1200 4.6-6.2 M/mm3 Low RBC 4.45 LAB L100.1300 13.0-16.5 g/dl Low HGB 11.3 LAB L100.1400 40-54 % Low HCT 36.9 LAB L100.1500 80-94 fL Normal MCV 82.9 LAB L100.1600 27.0-32.0 pg Low MCH 25.4 LAB L100.1700 32-36 g/gl Low MCHC 30.6 LAB L100.1810 11.6-14.6 % High RDW CV 15.7 LAB L100.1820 35.1-43.9 fl High RDW SD 47.6 LAB L100.1900 150-450 K/mm3 Normal PLT 212 LAB L100.2000 6.2-12.0 fl Normal MPV 10.8 Performed By: #### L100.0500 #### [facility] [place], [address] BASIC METABOLIC Collected: 03/09/2018 Status: F Source: MELVIN PROFILE (BMP) 6:15 AM [facility] REPOSITORY Order Comment: RM 127 TYPE CODE TESTS RESULT OUT OF RANGE REFERENCE UNITS LAB L501.0100 74-106 mg/dL Normal GLU 83 Result Comment: Please note revised GLUCOSE reference range effective 2017. LAB L501.1000 7-18 mg/dL High BUN 19 LAB L501.1100 0.70-1.30 mg/dL High CREAT,SERUM 1.34 Result Comment: The validity of the calculated GFR AND GFRAA in patients over 70 years has not been determined. Clinical correlation is essential. LAB L501.1110 >60 mL/min Normal EST GFR 60 Result Comment: Non- GFR Calc LAB L501.1115 >60 mL/min Normal EST GFR - AA 72 Result Comment: GFR Calc LAB L501.1300 10-20 RATIO Normal BUN/CRE 14.2 LAB L501.2200 8.5-10.1 mg/dL Low CA 7.7 LAB L501.5300 136-145 mmol/L NA Normal 142 LAB L501.5600 3.5-5.1 mmol/L K Normal 4.0 LAB L501.5900 98-107 mmol/L High CL 110 LAB L501.6100 21.0-32.0 mmol/L Normal CO2 22.0 LAB L501.6200 5-15 Normal GAP 10 Performed By: #### L500.2500 #### [facility] [address] [place], [address] CBC-COMPLETE BLOOD CNT Collected: 03/02/2018 Status: F Source: MELVIN NO DIFF 6:20 AM [facility] REPOSITORY Order Comment: ROOM 127 TYPE CODE TESTS RESULT OUT OF RANGE REFERENCE UNITS LAB L100.1000 4.4-11.0 K/mm3 Normal WBC 4.4 LAB L100.1200 4.6-6.2 M/mm3 Low RBC 4.48 LAB L100.1300 13.0-16.5 g/dl Low HGB 11.4 LAB L100.1400 40-54 % Low HCT 37.4 LAB L100.1500 80-94 fL Normal MCV 83.5 LAB L100.1600 27.0-32.0 pg Low MCH 25.4 LAB L100.1700 32-36 g/gl Low MCHC 30.5 LAB L100.1810 11.6-14.6 % High RDW CV 15.6 LAB L100.1820 35.1-43.9 fl High RDW SD 47.6 LAB L100.1900 150-450 K/mm3 Normal PLT 218 LAB L100.2000 6.2-12.0 fl Normal MPV 10.5 Performed By: #### L100.0500 #### [facility] [address] [place], [address] BASIC METABOLIC Collected: 03/02/2018 Status: F Source: MELVIN PROFILE (BMP) 6:20 AM [facility] REPOSITORY Order Comment: ROOM 127 TYPE CODE TESTS RESULT OUT OF RANGE REFERENCE UNITS LAB L501.0100 74-106 mg/dL Normal GLU 82 Result Comment: Please note revised GLUCOSE reference range effective 2017. LAB L501.1000 7-18 mg/dL Normal BUN 17 LAB L501.1100 0.70-1.30 mg/dL High CREAT,SERUM 1.59 Result Comment: The validity of the calculated GFR AND GFRAA in patients over 70 years has not been determined. Clinical correlation is essential. LAB L501.1110 >60 mL/min Low EST GFR 49 Result Comment: Non- GFR Calc LAB L501.1115 >60 mL/min Low EST GFR - AA 59 Result Comment: GFR Calc LAB L501.1300 10-20 RATIO Normal BUN/CRE 10.7 LAB L501.2200 8.5-10.1 mg/dL Low CA 8.1 LAB L501.5300 136-145 mmol/L NA Normal 142 LAB L501.5600 3.5-5.1 mmol/L K Normal 4.0 LAB L501.5900 98-107 mmol/L High CL 110 LAB L501.6100 21.0-32.0 mmol/L Normal CO2 25.0 LAB L501.6200 5-15 Normal GAP 7 Performed By: #### L500.2500 #### [facility] [address] [facility] [place], [address] EMERGENCY DEPARTMENT Observed: 02/24/2018 Status: F Source: MODESTO SUMMARY 3:35 AM [facility] REPOSITORY [facility] Medical Records Department [address] [place] [address] Emergency Department Summary 02/24/18 0131 MR#: [id number] Acct: [id number] Name: SKYLER PINZON Rep #: [id number] : 1965 52 From: Vania Sullivan MD PCP: Mike Bella MD Status: DEP ER - ER Visit Summary Date of Service: 02/24/18 Chief Complaint: Decreased urine output History of Present Illness: The patient is a 52 M sent in from [facility] for decreased urine output. Patient gets straight cath every 6 hours due to neurogenic bladder. His last normal cath was at 6 PM. Nurses were reported unable to get urine return with cath at 10 PM. He presents at midnight with feeling of need to urinate but unable to pass urine. Patient has had prior kidney transplant. 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 Physical Examination: Vital signs are unremarkable. Patient sitting upright in bed no acute distress. He is nontoxic appearing. Heart is regular rate and rhythm. Lung sounds are clear. Abdomen is soft with suprapubic tenderness. Test Results: CBC was normal white count hemoglobin 12.0. Chemistry studies reveal creatinine 1.48 which is consistent with his prior values. Urinalysis shows 25-50 white cells with 50-100 RBCs. Emergency Department Course and Treatment: 16 Bulgarian Ga was placed by nursing staff. One hour after catheter was placed 1700 cc of urine have drained. Urine was sent for a culture. I did review his last 2 urine cultures that grew bacteria. It appears Macrobid would be my best option for oral coverage given his previous cultures. We will leave Ga catheter in at this time. Patient is to return for worsening symptoms or concerns. Treatment Plan: [] Disposition: Discharge Impression: 1. Urinary retention 2. Cystitis This note was generated with [employer] dictation software. It may contain incorrect words, spelling, and punctuation that were not noted in review of the chart prior to signing ED Disposition - Plan for ED Patient: Disposition: Home or Assisted Living Chief Complaint: Complaint Instructions: ED Retention Urinary Male, ED UTI Cystitis Male Prescriptions: Nitrofurantoin Macrocrystals [Macrobid] 100 mg PO Q12 #10 capsule Referrals: Mike Bella MD [Primary Care Provider] - 3-5 Days What to do if you have Problems For any increased pain, shortness of breath, bleeding, nausea or vomiting, chest pain, or any unexpected problems, contact your Primary Care Provider. Call [facility] ([phone]) or report to the closest Emergency Room. Call 911 if necessary. 02/24/18 0335 <Electronically signed by Vania Sullivan MD> Date Vania Sullivan MD Cosigner Signature (If Indicated): Date CC: Mike Bella MD DISCHARGE INSTRUCTION Observed: 02/24/2018 Status: F Source: MELVIN 1:32 AM [facility] REPOSITORY [facility] Medical Records Department [address] [address] Discharge Instruction 02/24/18130 MR#: [id number] Acct: [id number] Name: SKYLER PINZON Rep #: [id number] : 1965 52 From: Vania Sullivan MD PCP: Mike Bella MD Status: REG ER ED Disposition - Plan for ED Patient: Disposition: Home or Assisted Living Chief Complaint: Complaint Instructions: ED UTI Cystitis Male, ED Retention Urinary Male Prescriptions: Nitrofurantoin Macrocrystals [Macrobid] 100 mg PO Q12 #10 capsule Referrals: Mike Bella MD [Primary Care Provider] - 3-5 Days What to do if you have Problems For any increased pain, shortness of breath, bleeding, nausea or vomiting, chest pain, or any unexpected problems, contact your Primary Care Provider. Call [facility] ([phone]) or report to the closest Emergency Room. Call 911 if necessary. 02/24/18131 <Electronically signed by Vania Sullivan MD> Date Vania Sullivan MD Cosigner Signature (If Indicated): Date CC: Mike Bella MD URINALYSIS, COMPLETE Collected: 02/24/2018 Status: F Source: MELVIN 12:50 AM [facility] REPOSITORY Order Comment: Order Date: 02/24/18 Has pt arrived? Y How was Urine Obtained? CATHETER SPECIMEN TYPE CODE TESTS RESULT OUT OF RANGE REFERENCE UNITS LAB L400.3000 Yellow COLOR Normal Yellow LAB L400.3050 Clear Normal CLARITY Cloudy LAB L400.3200 Normal mg/dl Normal GLUCOSE, UR Normal LAB L400.3300 Negative mg/dL Normal BILIRUBIN URINE Negative LAB L400.3400 Negative mg/dl Normal KETONE UR Negative LAB L400.3465 1.002-1.030 Normal SP.GR. DIPSTX 1.010 LAB L400.3550 5.0 - 8.0 pH UR Normal 6.5 LAB L400.3600 Negative mg/dl High PROT 30 DIPSTX LAB L400.3700 Normal mg/dl Normal UROBILI Normal LAB L400.3750 Negative Normal NITRITE UR Negative LAB L400.3780 Negative /ul High OCCULT BLOOD-UR 250 LAB L400.3800 Negative /ul High LEUK ESTERASE 500 LAB L400.4050 0-5 /hpf WBC Normal 25-50 SEEN LAB L400.4100 0-5 /hpf Normal RBC-UA 50-100 SEEN LAB L400.4150 0-5 /hpf SQUAM Normal EPI 0-5 SEEN LAB L400.4300 None Seen /hpf 0 Normal BACTERIA SEEN LAB L400.4350 <or=2+ /hpf 0 Normal MUCUS, URINE SEEN Performed By: #### L400.0001 #### [facility] [address] [facility] [place], [place], [address] Observed: 02/24/2018 Status: F Source: MODESTO CULTURE, URINE 12:50 AM [facility] REPOSITORY Order Date: 02/24/18 Urine Culture ORGANISM 1: Staphylococcus epidermidis [facility] Count >100,000 Staphylococcus epidermidis: REACTION Benzylpenicillin NF >=0.5 R Cefoxitin *NF + Inducable Clindamycin [place] - Gentamicin $ <=0.5 S Levofloxacin $ 0.5 S Linezolid $$$$ 1 S Nitrofurantoin $ <=16 S Oxacillin NF >=4 R Rifampin $$ <=0.5 S Tetracycline NF 2 S Vancomycin $ 1 S (NF) indicates non-formulary drug at [facility]. Approval by Infectious Disease Specialist required before non-formulary drugs may be ordered and/or dispensed. * CLSI guidelines does not recommend testing of cephalosporins. This interpretation is deduced from Beta-lactam/penicillin results. Performed By: #### M100.0650 #### [facility] [address] [facility] [address] [place], [place], [id number] CBC W/DIFF, AUTOMATED Collected: 02/24/2018 Status: F Source: MELVIN 12:19 AM [facility] REPOSITORY TYPE CODE TESTS RESULT OUT OF RANGE REFERENCE UNITS LAB L100.1000 4.4-11.0 K/mm3 Normal WBC 4.9 LAB L100.1200 4.6-6.2 M/mm3 Low RBC 4.51 LAB L100.1300 13.0-16.5 g/dl Low HGB 12.0 LAB L100.1400 40-54 % Low HCT 37.6 LAB L100.1500 80-94 fL Normal MCV 83.4 LAB L100.1600 27.0-32.0 pg Low MCH 26.6 LAB L100.1700 32-36 g/gl Low MCHC 31.9 LAB L100.1810 11.6-14.6 % High RDW CV 15.6 LAB L100.1820 35.1-43.9 fl High RDW SD 46.9 LAB L100.1900 150-450 K/mm3 Normal PLT 224 LAB L100.2000 6.2-12.0 fl Normal MPV 10.4 LAB L100.2100 47-70 % Normal NEUT% 52.0 LAB L100.2200 19-41 % Normal LY% 32.0 LAB L100.2300 0-10 % High MONO% 12.8 LAB L100.2400 0-5 % Normal EO% 2.4 LAB L100.2500 0-1 % Normal BASO% 0.6 LAB L100.2550 0.0-0.9 % Normal IM GRAN % 0.200 Result Comment: IG% - Immature Granulocytes (promyelocytes, myelocytes and metamyelocytes) > 1% indicates that a LEFT SHIFT is Present. LAB L100.2620 2.0-7.7 X10 3/uL Normal Absolute Neut 2.6 LAB L100.2720 0.83-4.51 X10 3/ul Normal Absolute Lymph 1.58 Performed By: #### L100.0100 #### [facility] [address] [place], [place], [address] BASIC METABOLIC Collected: 02/24/2018 Status: F Source: MELVIN PROFILE (BMP) 12:19 AM [facility] REPOSITORY TYPE CODE TESTS RESULT OUT OF RANGE REFERENCE UNITS LAB L501.0100 74-106 mg/dL Normal GLU 100 Result Comment: Fasting Glucose result from 100 to 125 mg/dL suggests IMPAIRED HOMEOSTASIS per A.D.A. criteria. Please note revised GLUCOSE reference range effective 2017. LAB L501.1000 7-18 mg/dL High BUN 20 LAB L501.1100 0.70-1.30 mg/dL High CREAT,SERUM 1.48 Result Comment: The validity of the calculated GFR AND GFRAA in patients over 70 years has not been determined. Clinical correlation is essential. LAB L501.1110 >60 mL/min Low EST GFR 53 Result Comment: Non- GFR Calc LAB L501.1115 >60 mL/min Normal EST GFR - AA 65 Result Comment: GFR Calc LAB L501.1255 ml/min Normal Estimated CRCL 65.13 LAB L501.1300 10-20 RATIO Normal BUN/CRE 13.5 LAB L501.2200 8.5-10 mg/dL Low .1 CA 8.1 LAB L501.5300 136-14 mmol/L Normal 5 NA 141 LAB L501.5600 3.5-5. mmol/L Normal 1 K 4.0 LAB L501.5900 98-107 mmol/L High CL 111 LAB L501.6100 21.0-3 mmol/L Normal 2.0 CO2 22.0 LAB L501.6200 5-15 Normal GAP 8 Performed By: #### L500.2500 #### [facility] [address] [place], [address] CBC-COMPLETE BLOOD CNT Collected: 02/23/2018 Status: F Source: MELVIN NO DIFF 7:45 AM [facility] REPOSITORY TYPE CODE TESTS RESULT OUT OF RANGE REFERENCE UNITS LAB L100.1000 4.4-11.0 K/mm3 Low WBC 3.8 LAB L100.1200 4.6-6.2 M/mm3 Low RBC 4.31 LAB L100.1300 13.0-16.5 g/dl Low HGB 11.3 LAB L100.1400 40-54 % Low HCT 36.5 LAB L100.1500 80-94 fL Normal MCV 84.7 LAB L100.1600 27.0-32.0 pg Low MCH 26.2 LAB L100.1700 32-36 g/gl Low MCHC 31.0 LAB L100.1810 11.6-14.6 % High RDW CV 15.7 LAB L100.1820 35.1-43.9 fl High RDW SD 47.8 LAB L100.1900 150-450 K/mm3 Normal PLT 215 LAB L100.2000 6.2-12.0 fl Normal MPV 11.3 Performed By: #### L100.0500 #### [facility] [address] [place], [place], [address] BASIC METABOLIC Collected: 02/23/2018 Status: F Source: MELVIN PROFILE (BMP) 7:45 AM [facility] REPOSITORY TYPE CODE TESTS RESULT OUT OF RANGE REFERENCE UNITS LAB L501.0100 74-106 mg/dL Normal GLU 77 Result Comment: Please note revised GLUCOSE reference range effective 2017. LAB L501.1000 7-18 mg/dL Normal BUN 17 LAB L501.1100 0.70-1.30 mg/dL High CREAT,SERUM 1.47 Result Comment: The validity of the calculated GFR AND GFRAA in patients over 70 years has not been determined. Clinical correlation is essential. LAB L501.1110 >60 mL/min Low EST GFR 54 Result Comment: Non- GFR Calc LAB L501.1115 >60 mL/min Normal EST GFR - AA 65 Result Comment: GFR Calc LAB L501.1300 10-20 RATIO Normal BUN/CRE 11.6 LAB L501.2200 8.5-10.1 mg/dL Low CA 7.9 LAB L501.5300 136-145 mmol/L NA Normal 143 LAB L501.5600 3.5-5.1 mmol/L K Normal 4.4 LAB L501.5900 98-107 mmol/L High CL 110 LAB L501.6100 21.0-32.0 mmol/L Normal CO2 26.0 LAB L501.6200 5-15 Normal GAP 7 Performed By: #### L500.2500 #### [facility] [address] [place], [place], [address] CBC-COMPLETE BLOOD CNT Collected: 02/16/2018 Status: F Source: MELVIN NO DIFF 5:35 AM [facility] REPOSITORY Order Comment: 127 TYPE CODE TESTS RESULT OUT OF RANGE REFERENCE UNITS LAB L100.1000 4.4-11.0 K/mm3 Low WBC 4.0 LAB L100.1200 4.6-6.2 M/mm3 Low RBC 4.19 LAB L100.1300 13.0-16.5 g/dl Low HGB 11.2 LAB L100.1400 40-54 % Low HCT 35.7 LAB L100.1500 80-94 fL Normal MCV 85.2 LAB L100.1600 27.0-32.0 pg Low MCH 26.7 LAB L100.1700 32-36 g/gl Low MCHC 31.4 LAB L100.1810 11.6-14.6 % High RDW CV 15.9 LAB L100.1820 35.1-43.9 fl High RDW SD 48.5 LAB L100.1900 150-450 K/mm3 Normal PLT 229 LAB L100.2000 6.2-12.0 fl Normal MPV 11.3 Performed By: #### L100.0500 #### [facility] [place], [address] BASIC METABOLIC Collected: 02/16/2018 Status: F Source: MODESTO PROFILE ([facility]) 5:35 AM [facility] REPOSITORY Order Comment: 127 TYPE CODE TESTS RESULT OUT OF RANGE REFERENCE UNITS LAB L501.0100 74-106 mg/dL Normal GLU 79 Result Comment: Please note revised GLUCOSE reference range effective 2017. LAB L501.1000 7-18 mg/dL High BUN 21 LAB L501.1100 0.70-1.30 mg/dL High CREAT,SERUM 1.56 Result Comment: The validity of the calculated GFR AND GFRAA in patients over 70 years has not been determined. Clinical correlation is essential. LAB L501.1110 >60 mL/min Low EST GFR 50 Result Comment: Non- GFR Calc LAB L501.1115 >60 mL/min Normal EST GFR - AA 61 Result Comment: GFR Calc LAB L501.1300 10-20 RATIO Normal BUN/CRE 13.5 LAB L501.2200 8.5-10.1 mg/dL Low CA 8.1 LAB L501.5300 136-145 mmol/L NA Normal 143 LAB L501.5600 3.5-5.1 mmol/L K Normal 4.4 LAB L501.5900 98-107 mmol/L High CL 110 LAB L501.6100 21.0-32.0 mmol/L Normal CO2 25.0 LAB L501.6200 5-15 Normal GAP 8 Performed By: #### L500.2500 #### [facility] [address] [place], [place], [id number] BASIC METABOLIC Collected: 02/09/2018 Status: F Source: MELVIN PROFILE (BMP) 6:05 AM [facility] REPOSITORY Order Comment: ROOM 120 TYPE CODE TESTS RESULT OUT OF RANGE REFERENCE UNITS LAB L501.0100 74-106 mg/dL Normal GLU 75 Result Comment: Please note revised GLUCOSE reference range effective 2017. LAB L501.1000 7-18 mg/dL Normal BUN 15 LAB L501.1100 0.70-1.30 mg/dL High CREAT,SERUM 1.35 Result Comment: The validity of the calculated GFR AND GFRAA in patients over 70 years has not been determined. Clinical correlation is essential. LAB L501.1110 >60 mL/min Low EST GFR 59 Result Comment: Non- GFR Calc LAB L501.1115 >60 mL/min Normal EST GFR - AA 72 Result Comment: GFR Calc LAB L501.1300 10-20 RATIO Normal BUN/CRE 11.1 LAB L501.2200 8.5-10.1 mg/dL Low CA 8.4 LAB L501.5300 136-145 mmol/L NA Normal 143 LAB L501.5600 3.5-5.1 mmol/L K Normal 4.4 LAB L501.5900 98-107 mmol/L High CL 111 LAB L501.6100 21.0-32.0 mmol/L Normal CO2 24.0 LAB L501.6200 5-15 Normal GAP 8 Performed By: #### L500.2500 #### [facility] [address] [place], [place], [address] CBC-COMPLETE BLOOD CNT Collected: 02/09/2018 Status: F Source: MELVIN NO DIFF 6:05 AM [facility] REPOSITORY Order Comment: ROOM 120 TYPE CODE TESTS RESULT OUT OF RANGE REFERENCE UNITS LAB L100.1000 4.4-11.0 K/mm3 Low WBC 3.9 LAB L100.1200 4.6-6.2 M/mm3 Low RBC 4.39 LAB L100.1300 13.0-16.5 g/dl Low HGB 11.5 LAB L100.1400 40-54 % Low HCT 37.8 LAB L100.1500 80-94 fL Normal MCV 86.1 LAB L100.1600 27.0-32.0 pg Low MCH 26.2 LAB L100.1700 32-36 g/gl Low MCHC 30.4 LAB L100.1810 11.6-14.6 % High RDW CV 16.2 LAB L100.1820 35.1-43.9 fl High RDW SD 51.0 LAB L100.1900 150-450 K/mm3 Normal PLT 213 LAB L100.2000 6.2-12.0 fl Normal MPV 10.3 Performed By: #### L100.0500 #### [facility] [address] [place], [address] Observed: 02/09/2018 Status: F Source: MODESTO CULTURE, URINE 12:00 AM [facility] REPOSITORY Urine Culture Culture exhibits no growth. Performed By: #### M100.0650 #### [facility] [address] [place], [address] DISCHARGE SUMMARY Observed: 02/04/2018 Status: F Source: MELVIN 6:21 PM [facility] REPOSITORY [facility] Medical Records Department [address] [place] [address] Discharge Summary 01/25/18 1729 MR#: [id number] Acct: [id number] Name: SKYLER PINZON Rep #: [id number] : 1965 52 From: Mikey Rinaldi MD PCP: Mike Bella MD Status: DIS IN Y Location: [facility] [id number] ADDENDUM by Mikey Rinalid MD on 02/04/18 at 1821 Code Visit Discharge to the [facility] in [place] 02/01/2018. 02/04/18 1821 <Electronically signed by Mikey Rinadli MD> Date Mikey Rinaldi MD cc: Mike Bella MD; Mikey Rinaldi MD * Signed Discharge Date and Diagnosis - Problem List Patient Problems: Active and Suspected Problems (Last Reviewed 12/22/17 @ 11:28 by Siria Harp NP-C) Urinary tract infection (Acute) Abdominal pain (Acute) Urinary retention (Acute) Recurrent sepsis due to urinary tract infection (Acute) Date of Admission: 01/16/18 Date of Discharge: 01/29/18 - Primary Discharge Diagnosis Active and Suspected Problems (Last Reviewed 12/22/17 @ 11:28 by Siria Harp NP-C) Urinary tract infection (Acute) Abdominal pain (Acute) Urinary retention (Acute) Recurrent sepsis due to urinary tract infection (Acute) - Secondary Discharge Diagnosis Chronic Problems (Last Reviewed 12/22/17 @ 11:28 by Siria Harp NP-[place]) Chronic kidney disease (Chronic) Mild intellectual disability (Chronic) Pulmonary embolism (Chronic) Pulmonary infiltrate present on computed tomography (Chronic) CKD (chronic kidney disease), stage III (Chronic) Kidney transplant recipient (Chronic) Congenital nystagmus (Chronic) Mild MRDD (Chronic) DVT (deep venous thrombosis) (Chronic) Renal transplant, status post (Chronic) Neurogenic bladder disorder (Chronic) managed with cic Hospital Course and Treatment Imaging Results: 01/19/18 14:10 Diet: Regular Diet Is pt able to select menu?: Yes Diet Comments: needs to be up with all meals Clinical Impression(s) from Imaging Studies KUB X-Ray 01/22/18 13:40 IMPRESSION: No acute pathology of the abdomen or pelvis. Electronically Signed: Sean Rojas MD at 18:14 EDT , Service support , Labs (Last 48 Hours) WBC RBC Hgb Hct MCV MCH MCHC RDW RDW Differential Plt Count MPV Microbiology 01/23/18 18:55 Urine, Catheterized Urine Culture - Preliminary GPC Poss Enterococcus sp Operations: None Procedures: None Summary of Care Provided: The patient is a 52 year old Male with below past medical history hospitalized for sepsis secondary to urinary tract infection, cultures negative, only on prophylactic antibiotic, admitted to TCU with debility, here for rehabilitation, strengthening, prior to discharge to detention. Urine culture grew GPC possible enterococcus, discharge on Amoxicillin to finish 10 day course, final urine culture results pending. Resident has urinary retention secondary to neurogenic bladder, prior to admission, Skyler lived independently and performed intermittent self catheterization. It is my opinion Skyler is unable to perform intermittent self catheterization adequately, if he lives in assisted living, he can have intermittent straight cath performed by the nursing staff, but if he goes home, consider alternatives like indwelling ga catheter versus suprapubic catheter. Of note, Skyler's kidney function is dependent on the transplant kidney in his right pelvis. Discharge to [facility]. Discharge Diet: No Restrictions Discharge Activity: Return to Normal Activity, May Shower, Use Walker Weight Bearing Status: Weight bearing as tolerated Call your doctor if you observe: Fever of 101 or Higher, Inability to urinate, Inability to have a bowel movement, Shortness of breath, Chest pain, Uncontrolled pain Home Medications: Medications to take at Discharge Mycophenolate Mofetil [Cellcept] 500 mg PO 00,209907/14/16 Amlodipine [Norvasc] 5 mg PO QHS 09/29/17 albuterol sulfate 2.5 mg/3 mL (0.083 %) solution for nebulization 2.5 mg INHALATION Q4H PRN #180 vial 12/15/17 albuterol sulfate 90 mcg/actuation breath activated powder inhaler 2 puff INHALATION Q4H PRN #1 ea 12/22/17 Lactobacillus Acidophilus [Acidophilus] 1 tablet PO BID 01/11/18 Ranitidine [Zantac] 150 mg PO BID 01/11/18 Sulfamethoxazole/Trimethoprim [Sulfamethoxazole-Tmp Ss Tablet] 1 tab PO DAILY 01/11/18 Tacrolimus Anhydrous [Prograf] 2 mg PO 0900,209901/11/18 Acetaminophen [Tylenol] 1,000 mg PO Q8H PRN tablet 01/25/18 Amoxicillin [Amoxil] 500 mg PO Q8 #18 capsule 01/25/18 Apixaban [Eliquis] 2.5 mg PO BID #60 tablet 01/25/18 Na Biphos/Potassium Phosphate [Neutra-Phos Packet] 1 packet PO 4X/DAYCM #120 packet 01/25/18 Polyethylene Glycol 3350 [Miralax] 17 gm PO BID #60 packet 01/25/18 Senna/Docusate Sodium [Senokot-S] 2 tablet PO BID #120 tablet 01/25/18 Following Prescrptions Were Given to Patient: Amoxicillin [Amoxil] 500 mg PO Q8 #18 capsule Apixaban [Eliquis] 2.5 mg PO BID #60 tablet Polyethylene Glycol 3350 [Miralax] 17 gm PO BID #60 packet Senna/Docusate Sodium [Senokot-S] 2 tablet PO BID #120 tablet Na Biphos/Potassium Phosphate [Neutra-Phos Packet] 1 packet PO 4X/DAYCM #120 packet Primary Care Physician: Mike Bella MD [Primary Care Provider] - Please follow up with your Primary Care Physician in: 1 week. Please Follow Up With: Nakul Crenshaw MD When: 2 weeks. Please Follow Up With: transplant team When: 2 weeks. Disposition: Asstd Living/Non-Skill NH Minutes spent on discharge:: 35 Patient Condition:: Stable Medical Necessity - Tobacco Use Smoking Status: Never smoker Tobacco Use: Non-smoker Meaningful Use Info Meaningful Use Diagnoses (Choose all that apply): None applicable 01/25/18 1735 <Electronically signed by Mikey Rinaldi MD> Date Mikey Rinaldi MD Cosigner Signature (if applicable): Date CC: Mike Bella MD; Mikey Rinaldi MD Signed CBC-COMPLETE BLOOD CNT Collected: 02/02/2018 Status: F Source: [place] NO DIFF 5:45 AM [facility] REPOSITORY Order Comment: 127 TYPE CODE TESTS RESULT OUT OF RANGE REFERENCE UNITS LAB L100.1000 4.4-11.0 K/mm3 Low WBC 3.8 LAB L100.1200 4.6-6.2 M/mm3 Low RBC 4.26 LAB L100.1300 13.0-16.5 g/dl Low HGB 11.1 LAB L100.1400 40-54 % Low HCT 36.6 LAB L100.1500 80-94 fL Normal MCV 85.9 LAB L100.1600 27.0-32.0 pg Low MCH 26.1 LAB L100.1700 32-36 g/gl Low MCHC 30.3 LAB L100.1810 11.6-14.6 % High RDW CV 15.7 LAB L100.1820 35.1-43.9 fl High RDW SD 49.3 LAB L100.1900 150-450 K/mm3 Normal PLT 265 LAB L100.2000 6.2-12.0 fl Normal MPV 10.5 Performed By: #### L100.0500 #### [facility] [address] [place], [place], [address] BASIC METABOLIC Collected: 02/02/2018 Status: F Source: [place] PROFILE (BMP) 5:45 AM [facility] REPOSITORY Order Comment: 127 TYPE CODE TESTS RESULT OUT OF RANGE REFERENCE UNITS LAB L501.0100 74-106 mg/dL Normal GLU 76 Result Comment: Please note revised GLUCOSE reference range effective 2017. LAB L501.1000 7-18 mg/dL High BUN 19 LAB L501.1100 0.70-1.30 mg/dL High CREAT,SERUM 1.49 Result Comment: The validity of the calculated GFR AND GFRAA in patients over 70 years has not been determined. Clinical correlation is essential. LAB L501.1110 >60 mL/min Low EST GFR 53 Result Comment: Non- GFR Calc LAB L501.1115 >60 mL/min Normal EST GFR - AA 64 Result Comment: GFR Calc LAB L501.1300 10-20 RATIO Normal BUN/CRE 12.8 LAB L501.2200 8.5-10.1 mg/dL Low CA 7.9 LAB L501.5300 136-145 mmol/L NA Normal 142 LAB L501.5600 3.5-5.1 mmol/L K Normal 4.3 LAB L501.5900 98-107 mmol/L High CL 109 LAB L501.6100 21.0-32.0 mmol/L Normal CO2 26.0 LAB L501.6200 5-15 Normal GAP 7 Performed By: #### L500.2500 #### [facility] [address] [place], [place], [address] CBC W/DIFF, AUTOMATED Collected: 01/31/2018 Status: F Source: [place] 5:25 AM [facility] REPOSITORY TYPE CODE TESTS RESULT OUT OF RANGE REFERENCE UNITS LAB L100.1000 4.4-11.0 K/mm3 Normal WBC 4.5 LAB L100.1200 4.6-6.2 M/mm3 Low RBC 4.22 LAB L100.1300 13.0-16.5 g/dl Low HGB 11.0 LAB L100.1400 40-54 % Low HCT 36.3 LAB L100.1500 80-94 fL Normal MCV 86.0 LAB L100.1600 27.0-32.0 pg Low MCH 26.1 LAB L100.1700 32-36 g/gl Low MCHC 30.3 LAB L100.1810 11.6-14.6 % High RDW CV 15.7 LAB L100.1820 35.1-43.9 fl High RDW SD 49.7 LAB L100.1900 150-450 K/mm3 Normal PLT 274 LAB L100.2000 6.2-12.0 fl Normal MPV 10.3 LAB L100.2100 47-70 % Normal NEUT% 64.8 LAB L100.2200 19-41 % Low LY% 17.7 LAB L100.2300 0-10 % High MONO% 11.0 LAB L100.2400 0-5 % High EO% 5.8 LAB L100.2500 0-1 % Normal BASO% 0.7 LAB L100.2550 0.0-0.9 % Normal IM GRAN % 0.000 Result Comment: IG% - Immature Granulocytes (promyelocytes, myelocytes and metamyelocytes) > 1% indicates that a LEFT SHIFT is Present. LAB L100.2620 2.0-7.7 X10 3/uL Normal Absolute Neut 2.9 LAB L100.2720 0.83-4.51 X10 3/ul Low Absolute Lymph 0.79 Performed By: #### L100.0100 #### [facility] [address] [place], [place], [address] BASIC METABOLIC Collected: 01/31/2018 Status: F Source: [place] PROFILE (BMP) 5:25 AM [facility] REPOSITORY TYPE CODE TESTS RESULT OUT OF RANGE REFERENCE UNITS LAB L501.0100 74-106 mg/dL Normal GLU 87 Result Comment: Please note revised GLUCOSE reference range effective 2017. LAB L501.1000 7-18 mg/dL Normal BUN 17 LAB L501.1100 0.70-1.30 mg/dL High CREAT,SERUM 1.39 Result Comment: The validity of the calculated GFR AND GFRAA in patients over 70 years has not been determined. Clinical correlation is essential. LAB L501.1110 >60 mL/min Low EST GFR 57 Result Comment: Non- GFR Calc LAB L501.1115 >60 mL/min Normal EST GFR - AA 69 Result Comment: GFR Calc LAB L501.1255 ml/min Normal Estimated CRCL 69.12 LAB L501.1300 10-20 RATIO Normal BUN/CRE 12.2 LAB L501.2200 8.5-10 mg/dL Low .1 CA 8.1 LAB L501.5300 136-14 mmol/L Normal 5 NA 143 LAB L501.5600 3.5-5. mmol/L Normal 1 K 4.2 LAB L501.5900 98-107 mmol/L High CL 111 LAB L501.6100 21.0-3 mmol/L Normal 2.0 CO2 24.0 LAB L501.6200 5-15 Normal GAP 8 Performed By: #### L500.2500 #### [facility] [address] [place], [address] DISCHARGE INSTRUCTION Observed: 01/28/2018 Status: F Source: [place] 2:10 PM [facility] REPOSITORY [facility] Medical Records Department [address] [place] [address] Instructions for Home/Discharge Instructions 01/25/18 1727 MR#: [id number] Acct: [id number] Name: SKYLER PINZON Rep #: [id number] : 1965 52 From: Mikey Rinaldi MD PCP: Mike Bella MD Status: ADM IN ADDENDUM by Mikey Rinaldi MD on 01/28/18 at 1410 Discharge to the [facility] in [place] 01/31/2018 skilled for straight cathing. 01/28/18 1410 Date Mikey Rinaldi MD cc: Nakul Crenshaw MD; Mike Bella MD; Cheng Santos MD * Signed ADDENDUM by Mikey Rinaldi MD on 01/28/18 at 1407 Discharge to the [facility] in [place] 01/30/2018 skilled for straight cathing. 01/28/18 1407 Date Mikey Rinaldi MD cc: Nakul Crenshaw MD; Mike Bella MD; Cheng Santos MD * Signed - Discharge Diagnoses Current Active Problems: Current Active and Chronic Problems (Last Reviewed 12/22/17 @ 11:28 by Siria Harp NP-C) Urinary tract infection (Acute) Abdominal pain (Acute) Urinary retention (Acute) Chronic kidney disease (Chronic) Mild intellectual disability (Chronic) Recurrent sepsis due to urinary tract infection (Acute) You will use the following diet at home:: No restrictions, Regular Your food should be the consistency of: Regular Your liquids should be the consistency of: Regular/Thin Discharge Activity: Return to Normal Activity, May Shower, Use Walker Weight Bearing Status: Weight bearing as tolerated Call your doctor if you observe: Fever of 101 or Higher, Inability to urinate, Inability to have a bowel movement, Shortness of breath, Chest pain, Uncontrolled pain Allergies/Adverse Reactions: Allergies No Known Allergies Allergy (Verified 12/22/17 11:09) Medications to take at Discharge Mycophenolate Mofetil [Cellcept] 500 mg PO 0900,2100 07/14/16 Amlodipine [Norvasc] 5 mg PO QHS 09/29/17 albuterol sulfate 2.5 mg/3 mL (0.083 %) solution for nebulization 2.5 mg INHALATION Q4H PRN #180 vial 12/15/17 albuterol sulfate 90 mcg/actuation breath activated powder inhaler 2 puff INHALATION Q4H PRN #1 ea 12/22/17 Lactobacillus Acidophilus [Acidophilus] 1 tablet PO BID 01/11/18 Ranitidine [Zantac] 150 mg PO BID 01/11/18 Sulfamethoxazole/Trimethoprim [Sulfamethoxazole-Tmp Ss Tablet] 1 tab PO DAILY 01/11/18 Tacrolimus Anhydrous [Prograf] 2 mg PO 0900,2100 01/11/18 Acetaminophen [Tylenol] 1,000 mg PO Q8H PRN tablet 01/25/18 Amoxicillin [Amoxil] 500 mg PO Q8 #18 capsule 01/25/18 Apixaban [Eliquis] 2.5 mg PO BID #60 tablet 01/25/18 Na Biphos/Potassium Phosphate [Neutra-Phos Packet] 1 packet PO 4X/DAYCM #120 packet 01/25/18 Polyethylene Glycol 3350 [Miralax] 17 gm PO BID #60 packet 01/25/18 Senna/Docusate Sodium [Senokot-S] 2 tablet PO BID #120 tablet 01/25/18 The following prescriptions were given: Amoxicillin [Amoxil] 500 mg PO Q8 #18 capsule Apixaban [Eliquis] 2.5 mg PO BID #60 tablet Polyethylene Glycol 3350 [Miralax] 17 gm PO BID #60 packet Senna/Docusate Sodium [Senokot-S] 2 tablet PO BID #120 tablet Na Biphos/Potassium Phosphate [Neutra-Phos Packet] 1 packet PO 4X/DAYCM #120 packet Primary Care Physician: Mike Bella MD [Primary Care Provider] - Please follow up with your Primary Care Physician in: 1 week. Test Results: Test results from this visit will be discussed in further detail at your follow-up appointment, if applicable. Please Follow Up With: Nakul Crenshaw MD When: 2 weeks. Please Follow Up With: transplant team When: 2 weeks. Proposed Discharge Date: 01/29/18 01/25/18 9320 <Electronically signed by Mikey Rinaldi MD> Date Mikey Rinaldi MD CC: Nakul Crenshaw MD; Mike Bella MD; Cheng Santos MD TRANSFER TO [facility] Observed: 01/28/2018 Status: F Source: [facility] 2:09 PM [facility] REPOSITORY [facility] Medical Records Department [address] [place] [address] Transfer to Extended Care MR#: [id number] Acct: [id number] Name: SKYLER PINZON Rep #: [id number] : 1965 52 From: Mikey Rinaldi MD PCP: Mike Bella MD Status: ADM IN SKYLER PINZON [id number] (Patient) (Health Ins. Claim No.) (Day of Discharge to Facility) Certification of patient admission REQUIRED AT TIME OF ADMISSION. I CERTIFY THAT POST-HOSPITAL ECF SERVICES ARE REQUIRED TO BE GIVEN ON AN IN-PATIENT BASIS BECAUSE OF THE ABOVE NAMED PATIENT'S NEED FOR SENIOR LIVING CARE ON A CONTINUING BASIS FOR THE CONDITION(S) FOR WHICH HE/SHE WAS RECEIVING IN-PATIENT HOSPITAL SERVICES PRIOR TO HIS/HER TRANSFER TO THE F. 01/28/18 1409 <Electronically signed by Mikey Rinaldi MD> Date Mikey Rinaldi MD - Diet 01/19/18 14:10 Diet: Regular Diet Is pt able to select menu?: Yes Diet Comments: needs to be up with all meals - Routine Orders/Code Status Suppository Type: Dulcolax 10mg Suppository Frequency: Daily PRN Routine Lab Work: CBC, BMP Code Status: Full Code - Therapies Weight Bearing: Full - Problem/Diagnosis (1) Urinary tract infection Status: Acute Current Visit: Yes (2) Abdominal pain Status: Acute Current Visit: Yes (3) Urinary retention Status: Acute Current Visit: Yes (4) Chronic kidney disease Status: Chronic Current Visit: Yes (5) Mild intellectual disability Status: Chronic Current Visit: Yes (6) Sepsis Status: Acute Current Visit: No (7) PRISCILLA (acute kidney injury) Status: Acute Current Visit: No (8) Pulmonary embolism Status: Chronic Current Visit: No (9) DVT (deep venous thrombosis) Status: Chronic Current Visit: No (10) Neurogenic bladder disorder Status: Chronic Comment: managed with cic Current Visit: No - Allergies/Procedures Done in Hospital Allergies/Adverse Reactions: Allergies No Known Allergies Allergy (Verified 12/22/17 11:09) - Type of Care/Length of Stay Estimated LOS: Convalescent Care Less Than 30 days Type of Care Needed: Skilled Rehab Potential: Good Prognosis: Good - Additional Orders/Day of Discharge Additional Orders: Straight cath empty bladder every 6 hours. Day of Discharge: 01/31/18 - Dietary and Speech Recommendations Dietitian Recommendations/Changes: Rec continue Regular d/t wt loss. Will continue to provide CIB w/ meals for increased nutrition if consumed. - Follow Up Care Primary Care Physician: Mike Bella MD [Primary Care Provider] - Please follow up with your Primary Care Physician in: 1 week. Please Follow Up With: Nakul Crenshaw MD When: 2 weeks. Please Follow Up With: transplant team When: 2 weeks. Please Follow Up With: Dr Bella 01/28/18 1409 <Electronically signed by Mikey Rinaldi MD> Date Mikey Rinaldi MD CC: Nakul Crenshaw MD; Mike Bella MD; Cheng Santos MD Signed CONSULTATION Observed: 01/27/2018 Status: F Source: [place] 10:28 AM [facility] REPOSITORY [facility] Medical Records Department [address] [place] [address] Consultation 01/27/18 1026 MR#: [id number] Acct: [id number] Name: SKYLER PINZON Rep #: [id number] : 1965 52 From: Cheng Santos MD PCP: Mike Bella MD Status: ADM IN Y Location: [place] [address] Problem List (1) Urinary tract infection Status: Acute Reason for Consult: uti Consulted by: Dr. Rinaldi History of Present Illness: The patient is a 52 year old M with h/o kidney transplant, admitted with uti, transferred to TCU. Ucx now with E. faecium, has been on amoxicillin without improvement. C/o not feeling well with diffuse abd pain and dysuria. Getting intermittent straight cath. No fever. Full ROS performed and neg except as noted above. - Medical History Past Medical History (Chronic Problems): Chronic Problems (Last Reviewed 12/22/17 @ 11:28 by JASS Hull) Chronic kidney disease (Chronic) Mild intellectual disability (Chronic) Pulmonary embolism (Chronic) Pulmonary infiltrate present on computed tomography (Chronic) CKD (chronic kidney disease), stage III (Chronic) Kidney transplant recipient (Chronic) Congenital nystagmus (Chronic) Mild MRDD (Chronic) DVT (deep venous thrombosis) (Chronic) Renal transplant, status post (Chronic) Neurogenic bladder disorder (Chronic) managed with cic Allergies/Adverse Reactions: Allergies No Known Allergies Allergy (Verified 12/22/17 11:09) Home Medications: Ambulatory Orders Medication Instructions Recorded Mycophenolate Mofetil [Cellcept] 500 mg PO 0900,2100 07/14/16 - Social History SMOKING STATUS:: Never smoker Vital Signs Temp Pulse Resp BP Pulse Ox 98.8 F 96 18 142/85 H 94 01/26/18 16:00 01/26/18 16:00 01/26/18 16:00 01/26/18 16:00 01/26/18 16:00 Oxygen Delivery Method Room Air Weight: 76.856 kg Body Mass Index (BMI) 23.6 Microbiology Past 72 Hours 01/23/18 18:55 Urine Culture - Final Urine, Catheterized Enterococcus faecium - Other Studies Radiology: [] reviewed Other Studies: [] Route of nutrition/ use of supplements: [] Nutritional Intake: [] IV Site: [] Ga Catheter: [] - Physical Exam General: Alert, Cooperative, No apparent distress HEENT: Atraumatic, PERRLA, EOMI Neck: Supple, No Nodes Lungs: Clear to auscultation, Normal air movement Cardiovascular: Regular rate, Regular Rhythm Abdomen: Soft, Non-Distended, - - mild tendernes Extremities: No edema Skin: No rashes Musculoskeletal: No Tenderness to Palpation of Joints or Extremities Neurological: Cranial nerves II-XII grossly intact - Assessment/Plan Antibiotics: [] Assessment/Plan: [] Active and Suspected Problems (Last Reviewed 12/22/17 @ 11:28 by Siria Harp NP-C) Urinary tract infection (Acute) Abdominal pain (Acute) Urinary retention (Acute) Recurrent sepsis due to urinary tract infection (Acute) Enterococcus faecium complicated uti - R to ampicillin. Will stop amoxicillin. Start po linezolid for planned 7-10 day course. Will follow, thank you. 01/27/18 1028 <Electronically signed by Cheng Santos MD> Date Cheng Santos MD Cosigner Signature (if applicable): Date CC: Nakul Crenshaw MD; Mike Bella MD; Cheng Santos MD Signed ABD INC DECUB Observed: 01/26/2018 Status: F Source: MELVIN AND/OR ERECT 11:09 AM [facility] REPOSITORY [facility] Imaging Services [address] [place] [address] Abd Inc Decub and/or Erect MR#: [id number] Acct: [id number] Name: SKYLER PINZON Rep #: [id number] : 1965 M 52 From: Manolo Julian MD PCP: Mike Bella MD Status: ADM IN Study: Abd Inc Decub and/or Erect Date of Exam: 01/26/18 Exam# [id number] Ordering Dr: Mikey Rinaldi MD STUDY: X-RAY - ABDOMEN/PELVIS REASON FOR EXAM: Male, 52 years old. Mid abdominal pain and constipation. TECHNIQUE: AP supine and upright views of the abdomen and pelvis. COMPARISON: Comparison is made with prior study dated January 22, 2018. FINDINGS: Normal visualized lung bases. There is an abundance of fecal material throughout the colon. Dilated small bowel loops most likely secondary to the constipation. There is no demonstrated free abdominal air. Surgical clips are seen in the right lower quadrant. Patient has a history of right renal transplant. Normal soft tissue structures. Normal visualized osseous structures. RAD/Abd Inc Decub and/or Erect IMPRESSION: Large amount of fecal material is seen throughout the colon with dilated small bowel. Electronically Signed: Manolo Julian MD at 12:56 EDT Tel [phone], Service support , CC: Mike Bella MD; Mikey Rinaldi MD Admitted Attorneys: Signed BASIC METABOLIC Collected: 01/24/2018 Status: F Source: [place] PROFILE (BMP) 5:30 AM [facility] REPOSITORY TYPE CODE TESTS RESULT OUT OF RANGE REFERENCE UNITS LAB L501.0100 74-106 mg/dL Normal GLU 88 Result Comment: Please note revised GLUCOSE reference range effective 2017. LAB L501.1000 7-18 mg/dL High BUN 22 LAB L501.1100 0.70-1.30 mg/dL High CREAT,SERUM 1.60 Result Comment: The validity of the calculated GFR AND GFRAA in patients over 70 years has not been determined. Clinical correlation is essential. LAB L501.1110 >60 mL/min Low EST GFR 49 Result Comment: Non- GFR Calc LAB L501.1115 >60 mL/min Low EST GFR - AA 59 Result Comment: GFR Calc LAB L501.1255 ml/min Normal Estimated CRCL 59.71 LAB L501.1300 10-20 RATIO Normal BUN/CRE 13.8 LAB L501.2200 8.5-10 mg/dL Low .1 CA 8.3 LAB L501.5300 136-14 mmol/L Normal 5 NA 143 LAB L501.5600 3.5-5. mmol/L Normal 1 K 4.5 LAB L501.5900 98-107 mmol/L High CL 111 LAB L501.6100 21.0-3 mmol/L Normal 2.0 CO2 25.0 LAB L501.6200 5-15 Normal GAP 7 Performed By: #### L500.2500, L501.9940 #### [facility] [address] [place], [place], [id number] PSA,TOTAL- DIAGNOSTIC Collected: 01/24/2018 Status: F Source: MELVIN 5:30 AM [facility] REPOSITORY TYPE CODE TESTS RESULT OUT OF RANGE REFERENCE UNITS LAB L501.9940 0.0-4.0 ng/mL PSA, Normal DIAGNOSTIC 1.97 Result Comment: This test was performed using the TPSA assay method for the FLX Micro chemistry system. Values obtained with different assay methods cannot be used interchangably. When changing PSA assays in the course of monitoring a patient, additional sequential testing should be carried out to confirm baseline values. Performed By: #### L500.2500, L501.9940 #### [facility] [address] [place], [place], [id number] URINALYSIS, COMPLETE Collected: 01/23/2018 Status: F Source: [place] 6:55 PM [facility] REPOSITORY Order Comment: Microscopic field is filled. Other elements may be obscured. How was Urine Obtained? CATHETER SPECIMEN TYPE CODE TESTS RESULT OUT OF RANGE REFERENCE UNITS LAB L400.3000 Yellow COLOR Normal Yellow LAB L400.3050 Clear Normal CLARITY Cloudy LAB L400.3200 Normal mg/dl Normal GLUCOSE, UR Normal LAB L400.3300 Negative mg/dL Normal BILIRUBIN URINE Negative LAB L400.3400 Negative mg/dl Normal KETONE UR Negative LAB L400.3465 1.002-1.030 Normal SP.GR. DIPSTX 1.015 LAB L400.3550 5.0 - 8.0 pH UR Normal 6.5 LAB L400.3600 Negative mg/dl High PROT DIPSTX 100 LAB L400.3700 Normal mg/dl Normal UROBILI Normal LAB L400.3750 Negative Normal NITRITE UR Negative LAB L400.3780 Negative /ul High OCCULT BLOOD-UR 250 LAB L400.3800 Negative /ul High LEUK ESTERASE 100 LAB L400.4050 0-5 /hpf WBC Normal >100 SEEN LAB L400.4100 0-5 /hpf > Normal RBC-UA 100 SEEN LAB L400.4150 0-5 /hpf SQUAM Normal EPI 10-25 SEEN LAB L400.4300 None Seen /hpf 0 Normal BACTERIA SEEN LAB L400.4350 <or=2+ /hpf 0 Normal MUCUS, URINE SEEN Performed By: #### L400.0001 #### [facility] [address] [place], [address] Observed: 01/23/2018 Status: F Source: [place] CULTURE, URINE 6:55 PM [facility] REPOSITORY Urine Culture ORGANISM 1: Enterococcus faecium [facility] Count >100,000 Enterococcus faecium: REACTION Ampicillin $ >=32 R Benzylpenicillin NF >=64 R Ciprofloxacin $ >=8 R Gentamicin SYN-S S Levofloxacin $ >=8 R Linezolid $$$$ 2 S Nitrofurantoin $ 64 I Streptomycin $ SYN-S S Tetracycline NF >=16 R Vancomycin $ <=0.5 S (NF) indicates non-formulary drug at [facility]. Approval by Infectious Disease Specialist required before non-formulary drugs may be ordered and/or dispensed. * CLSI guidelines does not recommend testing of cephalosporins. This interpretation is deduced from Beta-lactam/penicillin results. Performed By: #### M100.0650 #### [facility] [address] [place], [address] ABDOMEN SINGLE VIEW Observed: 01/22/2018 Status: F Source: [place] 12:30 PM [facility] REPOSITORY [facility] Imaging Services [address] [place] [address] Abdomen Single View MR#: [id number] Acct: [id number] Name: SKYLER PINZON Rep #: [id number] : 1965 M 52 From: Sean Rojas MD PCP: Mike Bella MD Status: ADM IN Study: Abdomen Single View Date of Exam: 01/22/18 Exam# [id number] Ordering Dr: Mikey Rinaldi MD STUDY: X-RAY - ABDOMEN/PELVIS REASON FOR EXAM: Male, 52 years old. History of renal transplant. Diarrhea. TECHNIQUE: Single AP view of the abdomen / pelvis. COMPARISON: January 16, 2018 FINDINGS: Normal visualized lung bases. There is an unremarkable bowel gas pattern. There is no demonstrated free abdominal air. The visualized liver, spleen and kidneys are grossly normal in size and morphology. There are stable clips on the right side of the pelvis from the renal transplant. Normal visualized osseous structures. RAD/Abdomen Single View IMPRESSION: No acute pathology of the abdomen or pelvis. Electronically Signed: Sean Rojas MD at 18:14 EDT , Service support , CC: Mike Bella MD; Mikey Rinaldi MD Admitted Attorneys: Signed RENAL PROFILE Collected: 01/21/2018 Status: F Source: [place] 5:20 AM [facility] REPOSITORY TYPE CODE TESTS RESULT OUT OF RANGE REFERENCE UNITS LAB L501.0100 74-106 mg/dL Normal GLU 89 Result Comment: Please note revised GLUCOSE reference range effective 2017. LAB L501.1000 7-18 mg/dL High BUN 27 LAB L501.1100 0.70-1.30 mg/dL High CREAT,SERUM 1.70 Result Comment: The validity of the calculated GFR AND GFRAA in patients over 70 years has not been determined. Clinical correlation is essential. LAB L501.1110 >60 mL/min Low EST GFR 45 Result Comment: Non- GFR Calc LAB L501.1115 >60 mL/min Low EST GFR - AA 55 Result Comment: GFR Calc LAB L501.1255 ml/min Normal Estimated CRCL 56.20 LAB L501.1300 10-20 RATIO Normal BUN/CRE 15.9 LAB L501.1800 3.2-5. g/dL Low 0 ALB 3.1 LAB L501.2200 8.5-10 mg/dL Low .1 CA 8.2 LAB L501.2300 2.5-4. mg/dL Normal 9 PHOS 3.0 LAB L501.5300 136-14 mmol/L Normal 5 NA 142 LAB L501.5600 3.5-5. mmol/L Normal 1 K 4.6 LAB L501.5900 98-107 mmol/L High CL 110 LAB L501.6100 21.0-3 mmol/L Normal 2.0 CO2 26.0 Performed By: #### L500.3600 #### [facility] [address] [place], [address] CBC W/DIFF, AUTOMATED Collected: 01/21/2018 Status: F Source: [place] 5:20 AM [facility] REPOSITORY TYPE CODE TESTS RESULT OUT OF RANGE REFERENCE UNITS LAB L100.1000 4.4-11.0 K/mm3 Low WBC 3.9 LAB L100.1200 4.6-6.2 M/mm3 Low RBC 4.07 LAB L100.1300 13.0-16.5 g/dl Low HGB 10.9 LAB L100.1400 40-54 % Low HCT 35.1 LAB L100.1500 80-94 fL Normal MCV 86.2 LAB L100.1600 27.0-32.0 pg Low MCH 26.8 LAB L100.1700 32-36 g/gl Low MCHC 31.1 LAB L100.1810 11.6-14.6 % High RDW CV 15.4 LAB L100.1820 35.1-43.9 fl High RDW SD 47.9 LAB L100.1900 150-450 K/mm3 Normal PLT 342 LAB L100.2000 6.2-12.0 fl Normal MPV 9.8 LAB L100.2100 47-70 % Normal NEUT% 50.5 LAB L100.2200 19-41 % Normal LY% 25.4 LAB L100.2300 0-10 % High MONO% 14.6 LAB L100.2400 0-5 % High EO% 7.4 LAB L100.2500 0-1 % High BASO% 1.3 LAB L100.2550 0.0-0.9 % Normal IM GRAN % 0.800 Result Comment: IG% - Immature Granulocytes (promyelocytes, myelocytes and metamyelocytes) > 1% indicates that a LEFT SHIFT is Present. LAB L100.2620 2.0-7.7 X10 3/uL Normal Absolute Neut 2.0 LAB L100.2720 0.83-4.51 X10 3/ul Normal Absolute Lymph 0.99 Performed By: #### L100.0100 #### [facility] [address] [place], [place], [address] TACROLIMUS (PROGRAF) Collected: 01/21/2018 Status: F Source: [place] 5:20 AM [facility] REPOSITORY TYPE CODE TESTS RESULT OUT OF RANGE REFERENCE UNITS LAB L3380.1100 2.0-20.0 ng/mL Normal TACROLIMUS 6.4 Result Comment: Trough (immediately following transplant) 15.0 Trough (steady state, 2 weeks or more after transplant): 3.0 - 8.0 Detection Limit = 1.0 Performed by LC-MS/MS technology. Performed at: - [facility] [id number] Print Binding Worker: Renan Soares MD, Phone: [phone] Performed By: #### L3380.1000 #### [facility] (refer to report for specific site) refer to report for address and phone number CONSULTATION Observed: 01/20/2018 Status: F Source: [place] 12:37 PM [facility] REPOSITORY [facility] Medical Records Department [address] [place] [address] Consultation 01/20/18 1234 MR#: [id number] Acct: [id number] Name: SKYLER PINZON Rep #: [id number] : 1965 52 From: Nakul Crenshaw MD PCP: Mike Bella MD Status: ADM IN Y Location: [place] [address] Problem List (1) Recurrent sepsis due to urinary tract infection Status: Acute Reason for Consult Date of Consultation: 01/20/18 Reason for Consultation: Recurrent UTIs History of Present Illness: The patient is a 52 year old male who has a history of a neurogenic bladder he had a kidney transplant at this point is expected to do self intermittent catheterization but I think at home he has a hard time doing the self-catheterization and he probably needs home health care on a daily basis to help catheterize the patient at home. Here in transitional care unit the nurses have been helping him catheterize himself every 6 hours. I think that he is getting sepsis and infections because he is not able to take care of himself at home and do self-catheterization he probably will need home health care on discharge to help with that. Past Medical History Past Medical History (Chronic Problems): Chronic Problems (Last Reviewed 12/22/17 @ 11:28 by Siria Harp NP-C) Chronic kidney disease (Chronic) Mild intellectual disability (Chronic) Pulmonary embolism (Chronic) Pulmonary infiltrate present on computed tomography (Chronic) CKD (chronic kidney disease), stage III (Chronic) Kidney transplant recipient (Chronic) Congenital nystagmus (Chronic) Mild MRDD (Chronic) DVT (deep venous thrombosis) (Chronic) Renal transplant, status post (Chronic) Neurogenic bladder disorder (Chronic) managed with cic Medical History: Medical History (Last Reviewed 12/22/17 @ 11:28 by Siria Harp NP-C) Right-sided chest pain (Acute) R07.9 Nonproductive cough (Acute) R05 Bronchitis (Acute) J40 Pulmonary embolism (Chronic) I26.99 Chest pain (Acute) R07.9 Pulmonary infiltrate present on computed tomography (Chronic) R91.8 CKD (chronic kidney disease), stage III (Chronic) N18.3 Acute UTI (Acute) N39.0 Kidney transplant recipient (Chronic) Z94.0 Congenital nystagmus (Chronic) H55.01 Mild MRDD (Chronic) DVT (deep venous thrombosis) (Chronic) I82.409 Neurogenic bladder disorder (Chronic) N31.9 managed with cic Allergies No Known Allergies Allergy (Verified 12/22/17 11:09) Home Medications: Ambulatory Orders Medication Instructions Recorded Mycophenolate Mofetil [Cellcept] 500 mg PO 0900,2100 07/14/16 Amlodipine [Norvasc] 5 mg PO QHS 09/29/17 Surgical History: Surgical History (Last Reviewed 12/22/17 @ 11:28 by Siria Harp NP-C) Renal transplant, status post (Chronic) Z94.0 Surgical History: - - Right kidney transplant [facility], dialysis access prior, Right upper extremity fistula. Psychiatric History: No pertinent psych hx, - - MRDD Lives: Alone Smoking Status: Never smoker Tobacco Use: Non-smoker Alcohol: None Drugs: None - *Family History Maternal History Items: Hypertension Paternal History Items: Diabetes Review of Systems Constitutional: Denies: Chills, Fever, Weight Change HEENT: Denies: Head Aches, Sinus Congestion, Sinus Drainage Cardiovascular: Denies: Chest Pain, Palpitations Respiratory: Denies: Cough, Shortness of breath at rest, Sputum production Gastrointestinal: Denies: Abdominal Pain, Nausea, Vomiting Genitourinary: Denies: Dysuria Musculoskeletal: Denies: Joint Pain, Joint Tenderness Skin: Denies: Rash, Wounds Neurological: Denies: Numbness, Tingling, Focal weakness Psychiatric: Denies: Anxiety, Depression, Homicidal Ideations, Suicidal Ideations Hematologic/ Lymphatic: Denies: Easy Bruising, Easy Bleeding Physical Exam - Physical Exam Vital Signs Temp 97.9 F 01/19/18 16:00 Pulse 96 01/19/18 16:00 Resp 18 01/19/18 16:00 BP 124/77 H 01/19/18 16:00 Pulse Ox 97 01/19/18 16:00 Intake AND Output Intake Total 840 / 840 720 / 720 120 / 120 Output Total 1900 / 1900 1430 / 1430 500 / 500 General: Alert, Oriented x3 HEENT: Atraumatic Neck: Supple Lungs: Normal air movement Cardiovascular: Regular rate Microbiology Past 72 Hours 01/18/18 12:00 Urine Culture - Preliminary Urine, Catheterized Culture exhibits no growth. Assessment/Plan All Active Problems (Last Reviewed 12/22/17 @ 11:28 by Siria Harp NP-C) Sepsis (Acute) PRISCILLA (acute kidney injury) (Acute) Urinary tract infection (Acute) Abdominal pain (Acute) Urinary retention (Acute) Recurrent sepsis due to urinary tract infection (Acute) Right-sided chest pain (Acute) Nonproductive cough (Acute) Bronchitis (Acute) Chest pain (Acute) Acute UTI (Acute) 52-year-old male with a history of kidney transplant neurogenic bladder is a large distended bladder the reason why he is getting infections because he is not able to self catheterize at home in a routine fashion like he should be doing he needs additional help he has obvious mental handicap and has debility in terms of understanding how to do self management and self catheter management so he will need home health care to help him on a daily basis to do catheter. Probably would recommend home care come out to see him once a day just to make sure he catheterizes himself at least once a day properly. Until this is done probably could expect this patient end up in the hospital multiple times over and over with infections. He can follow-up in my office as planned. 01/20/18 4647 <Electronically signed by Nakul Crenshaw MD> Date Nakul Crenshaw MD Cosigner Signature (if applicable): Date CC: Nakul Crenshaw MD; Mike Bella MD Signed URINALYSIS, ROUTINE Collected: 01/18/2018 Status: F Source: [place] (DIPSTICK) 12:00 PM [facility] REPOSITORY Order Comment: Diagnosis: cloudy, foul odor, burning Order Date: 01/18/18 How was Urine Obtained? CATHETER SPECIMEN TYPE CODE TESTS RESULT OUT OF RANGE REFERENCE UNITS LAB L400.3000 Yellow COLOR Normal Yellow LAB L400.3050 Clear Normal CLARITY Cloudy LAB L400.3200 Normal mg/dl Normal GLUCOSE, UR Normal LAB L400.3300 Negative mg/dL Normal BILIRUBIN URINE Negative LAB L400.3400 Negative mg/dl Normal KETONE UR Negative LAB L400.3465 1.002-1.030 Normal SP.GR. DIPSTX 1.015 LAB L400.3550 5.0 - 8.0 pH UR Normal 6.0 LAB L400.3600 Negative mg/dl High PROT 30 DIPSTX LAB L400.3700 Normal mg/dl Normal UROBILI Normal LAB L400.3750 Negative Normal NITRITE UR Negative LAB L400.3780 Negative /ul High OCCULT BLOOD-UR 250 LAB L400.3800 Negative /ul High LEUK 25 ESTERASE Performed By: #### L400.2011 #### [facility] [address] [place], [address] Observed: 01/18/2018 Status: F Source: [place] CULTURE, URINE 12:00 PM [facility] REPOSITORY Order Date: 01/18/18 Urine Culture Culture exhibits no growth. Performed By: #### M100.0650 #### [facility] [address], [place], [address] HISTORY AND PHYSICAL Observed: 01/17/2018 Status: F Source: [place] EXAM 8:21 AM [facility] REPOSITORY [facility] Medical Records Department [address] [place] [id number] History and Physical 01/16/182014 MR#: [id number] Acct: [id number] Name: SKYLER PINZON Rep #: [id number] : 1965 52 From: Mikey Rinaldi MD PCP: Mike Bella MD Status: ADM IN Y Location: [place] [address] Problem List (1) Urinary tract infection Status: Acute (2) Abdominal pain Status: Acute (3) Urinary retention Status: Acute (4) Chronic kidney disease Status: Chronic (5) Mild intellectual disability Status: Chronic (6) Sepsis Status: Acute Qualifiers: (7) PRISCILLA (acute kidney injury) Status: Acute (8) Pulmonary embolism Status: Chronic Qualifiers: (9) DVT (deep venous thrombosis) Status: Chronic Qualifiers: (10) Neurogenic bladder disorder Status: Chronic Comment: managed with cic History of Present Illness Date of Admission: 01/16/18 Chief Complaint: Here for rehabilitation, strengthening, prior to discharge to detention. The patient is a 52 year old Male with below past medical history presented to [facility] Emergency Department 01/11/2018 with abdominal pain. 01/11/2018 CT abdomen and pelvis, distended urinary bladder, cystitis, mild hydronephrosis right pelvis transplant kidney, marked hydronephrosis qagan tayagungin kidneys, small bowel obstruction, moderate stool in colon. Sharp, diffuse, abdominal pain, diarrhea. Cr 2.13, UA consistent with UTI. Rocephin IV, IV fluids given. Urine culture resistant to Rocephin. Switch antibiotics to Zosyn. 01/11/2018 Admit to Hospital. IV Zosyn, IV Vancomycin for UTI/sepsis. IV Fluids. Complete Nystatin for thrush. 01/12/2018 Fever 99.4, cultures pending. Zosyn IV for urinary tract infection. Not compliant with self straight cath. 01/13/2018 Continue Zosyn IV. Ga catheter for urinary retention. Xarelto for DVT/PE. 01/14/2018 Urine culture negative, blood culture pending. Zosyn stopped, restart Bactrim prophylaxis. Diarrhea x 3, check stool for C. Diff. 01/15/2018 Needs follow up with Dr. Crenshaw. Kidney function back to baseline. Consider detention after short term rehab. C. Diff NEGATIVE. 01/16/2018 Admit to TCU with debility, here for rehabilitation, strengthening, prior to placement in detention if possible. Past Medical History Past Medical History (Chronic Problems): Chronic Problems (Last Reviewed 12/22/17 @ 11:28 by Siria Harp NP-Lester) Chronic kidney disease (Chronic) Mild intellectual disability (Chronic) Pulmonary embolism (Chronic) Pulmonary infiltrate present on computed tomography (Chronic) CKD (chronic kidney disease), stage III (Chronic) Kidney transplant recipient (Chronic) Congenital nystagmus (Chronic) Mild MRDD (Chronic) DVT (deep venous thrombosis) (Chronic) Renal transplant, status post (Chronic) Neurogenic bladder disorder (Chronic) managed with cic Medical History: Medical History (Last Reviewed 12/22/17 @ 11:28 by JASS Hull) Right-sided chest pain (Acute) R07.9 Nonproductive cough (Acute) R05 Bronchitis (Acute) J40 Pulmonary embolism (Chronic) I26.99 Chest pain (Acute) R07.9 Pulmonary infiltrate present on computed tomography (Chronic) R91.8 CKD (chronic kidney disease), stage III (Chronic) N18.3 Acute UTI (Acute) N39.0 Kidney transplant recipient (Chronic) Z94.0 Congenital nystagmus (Chronic) H55.01 Mild MRDD (Chronic) DVT (deep venous thrombosis) (Chronic) I82.409 Neurogenic bladder disorder (Chronic) N31.9 managed with cic Allergies No Known Allergies Allergy (Verified 12/22/17 11:09) Home Medications: Ambulatory Orders Medication Instructions Recorded Mycophenolate Mofetil [Cellcept] 500 mg PO 0900,2100 07/14/16 Amlodipine [Norvasc] 5 mg PO QHS 09/29/17 Surgical History: Surgical History (Last Reviewed 12/22/17 @ 11:28 by JASS Hull) Renal transplant, status post (Chronic) Z94.0 Surgical History: - - Right kidney transplant [facility], dialysis access prior, Right upper extremity fistula. Psychiatric History: No pertinent psych hx, - - MRDD Lives: Alone Smoking Status: Never smoker Tobacco Use: Non-smoker Alcohol: None Drugs: None - *Family History Maternal History Items: Hypertension Paternal History Items: Diabetes Review of Systems Constitutional: Denies: Chills, Fever, Weight Change HEENT: Denies: Head Aches, Sinus Congestion, Sinus Drainage Cardiovascular: Denies: Chest Pain, Palpitations Respiratory: Denies: Cough, Shortness of breath at rest, Sputum production Gastrointestinal: Denies: Abdominal Pain, Nausea, Vomiting Genitourinary: Denies: Dysuria Musculoskeletal: Denies: Joint Pain, Joint Tenderness Skin: Denies: Rash, Wounds Neurological: Denies: Numbness, Tingling, Focal weakness Psychiatric: Denies: Anxiety, Depression, Homicidal Ideations, Suicidal Ideations Hematologic/ Lymphatic: Denies: Easy Bruising, Easy Bleeding VTE Information - Inpt Only VTE Present on Admission: No VTE Mechan Device Prophylaxis: Knee High SAMMY Hose VTE Pharm Prophylaxis ordered?: No Reason prophylaxis not ordered:: Treatment Not Indicated Patient Problems: Active and Suspected Problems (Last Reviewed 12/22/17 @ 11:28 by Siria Harp NP-C) Urinary tract infection (Acute) Abdominal pain (Acute) Urinary retention (Acute) - Physical Exam General: Alert, Oriented x3, Cooperative HEENT: Atraumatic, PERRLA, EOMI, Normocephalic Neck: Supple, No JVD, Negative Carotid Bruits Lungs: Clear to auscultation, Normal air movement Cardiovascular: Regular rate, No murmurs Abdomen: Bowel Sounds Present, Soft, Non Tender Extremities: No edema, Capillary Refill Less than 3 Seconds, - - RUE fistula. Skin: No rashes, No breakdown Musculoskeletal: No Tenderness to Palpation of Joints or Extremities Neurological: Cranial nerves II-XII grossly intact Psych/Mental Status: Normal Affect, Appropriate Vital Signs Temp Pulse Resp BP Pulse Ox 98.8 F 96 16 126/66 H 97 01/16/18 13:54 01/16/18 13:54 01/16/18 13:54 01/16/18 13:54 01/16/18 13:54 Oxygen Delivery Method Room Air Weight: 79.107 kg Body Mass Index (BMI) 23.6 Assessment/Plan All Active Problems (Last Reviewed 12/22/17 @ 11:28 by Siria Harp NP-C) Sepsis (Acute) PRISCILLA (acute kidney injury) (Acute) Urinary tract infection (Acute) Abdominal pain (Acute) Urinary retention (Acute) Right-sided chest pain (Acute) Nonproductive cough (Acute) Bronchitis (Acute) Chest pain (Acute) Acute UTI (Acute) 52 year old male with below past medical history hospitalized for sepsis secondary to urinary tract infection, cultures negative, only on prophylactic antibiotic, admitted to TCU with debility, here for rehabilitation, strengthening, prior to discharge to detention. * Debility - PT/OT. * Pain - Tylenol 1000MG Q8H PRN mild pain. * Bowel - Miralax 17GM daily, Senna/colace 1 tablet BID, Dulcolax 10MG PO daily PRN, suspect diarrhea is overflow diarrhea, order X-ray of abdomen. * Pneumonia vaccination - Administer Prevnar 13 and/or Pneumovax 23 as necessary. * DVT prophylaxis - Not necessary, already on Xarelto. * Shortness of breath - Albuterol 2.5MG Q4H PRN, Albuterol 2 puffs Q4H PRN. * Hypertension - Amlodipine 5MG QHS. * GERD - Famotidine 20MG BID, Mylanta II 30ML Q6H PRN. * GI prophylaxis - Lactobacillus 1 tablet BID. * Kidney Transplant - Cellcept 500MG BID, Prograf 2MG BID. * Hypophosphatemia - Neutra-Phos 1 packet 4x/day. * Recurrent UTI - Bactrim DS 1/2 tablet daily, self straight cath. 01/17/18 0821 <Electronically signed by Mikey Rinaldi MD> Date Mikey Rinaldi MD Cosigner Signature: Date (if applicable) CC: Mike Bella MD; Mikey Rinaldi MD Signed ABDOMEN SINGLE VIEW Observed: 01/16/2018 Status: F Source: [place] 8:35 PM [facility] REPOSITORY [facility] Imaging [place] [place] [address] Abdomen Single View MR#: [id number] Acct: [id number] Name: SKYLER PINZON Rep #: [id number] : 1965 M 52 From: Andrzej Liu MD PCP: Mike Bella MD Status: ADM IN Study: Abdomen Single View Date of Exam: 01/16/18 Exam# [id number] Ordering Dr: Mikey Rinaldi MD STUDY: X-RAY - ABDOMEN/PELVIS REASON FOR EXAM: Male, 52 years old. Constipation, abdominal pain. TECHNIQUE: Two portable AP supine views of the abdomen and pelvis. COMPARISON: CT abdomen and pelvis January 11, 2018 FINDINGS: Normal visualized lung bases. There is moderate fecal volume throughout the colon, which may reflect a degree of constipation. Gas is present in the rectal vault. No small bowel distention to indicate obstruction. There is no demonstrated free abdominal air. Surgical clips of prior right pelvic transplant kidney again noted in the right lower quadrant. The visualized liver, spleen and kidneys are grossly normal in size and morphology. There are calcified phleboliths in the pelvis. Normal visualized osseous structures. RAD/Abdomen Single View IMPRESSION: 1. Moderate fecal load in the colon, which may reflect a degree of constipation. No finding of carlos obstruction. 2. Prior right pelvic transplant kidney. Electronically Signed: Aime Liu MD at 21:27 EDT , Service support , CC: Mike Bella MD; Mikey Rinaldi MD Admitted Attorneys: Signed DISCHARGE SUMMARY Observed: 01/16/2018 Status: F Source: [place] 11:38 AM [facility] REPOSITORY [facility] Medical Records Department [address] [place] [address] Discharge Summary 01/16/18 0749 MR#: [id number] Acct: [id number] Name: SKYLER PINZON Rep #: [id number] : 1965 52 From: Jesica Russo PCP: Mike Bella MD Status: ADM IN Location: [place] [address] Discharge Date and Diagnosis - Problem List Patient Problems: Active and Suspected Problems (Last Reviewed 12/22/17 @ 11:28 by JASS Hull) Sepsis (Acute) PRISCILLA (acute kidney injury) (Acute) Date of Admission: 01/11/18 Date of Discharge: 01/16/18 - Primary Discharge Diagnosis Active and Suspected Problems (Last Reviewed 12/22/17 @ 11:28 by JASS Hull) (1) Acute Sepsis secondary to Suspected Acute Complicated Urinary Tract Infection w/ Neurogenic Bladder and Self-Catheterization (3) Acute Kidney Injury on CKD stage III, Prior ESRD/CKD IV, status post kidney transplant (4) Diarrhea, Suspect secondary to Abx Therapy (5) Hypertension (6) Mild mental retardation (7) Hx DVT, PE (8) GERD (9) Recent Oral Thrush, Resolved (10) Chronic Normocytic Anemia - Secondary Discharge Diagnosis Chronic Problems (Last Reviewed 12/22/17 @ 11:28 by JASS Hull) Pulmonary embolism (Chronic) Pulmonary infiltrate present on computed tomography (Chronic) CKD (chronic kidney disease), stage III (Chronic) Kidney transplant recipient (Chronic) Congenital nystagmus (Chronic) Mild MRDD (Chronic) DVT (deep venous thrombosis) (Chronic) Renal transplant, status post (Chronic) Neurogenic bladder disorder (Chronic) managed with cic Hospital Course and Treatment Discussed case w/ Dr. Cuevas Urology Operations: None Procedures: None Summary of Care Provided: The patient is a 52 y/o M w/ PMHx: Mild MRDD with help from his family/sister w/ Congenital Nystagmus, CKD stage III (baseline Cr 1.6, prior ESRD s/p Renal Txp), Renal Txp status on immunosuppressive therapy, Neurogenic bladder w/ self catheterization although not always complaint with q 4 hours during daytime, Hx DVT and PE on xarelto regimen who presented to the [facility] ED on 01/11/18 with history of ongoing low-grade temperatures, fatigue, weakness, more quiet than usual per sister report in addition to onset of suprapubic discomfort on day of ED presentation. Hx non-compliant with self catherization regimen. Ga placed in the ED. Admitted to [facility] upon ED evaluation remarkable, UCx however without organisms, admission CBC w/ WBC 7.3 with marked L shift, LA 0.7, treated w/ IVFs, monitor I/Os, initiated IV zosyn given prior sensitivities and dose vanc IV x 1 x 3 days with transition following to home oral prophylactic bactrim regimen. Planned follow-up with Dr. Crenshaw at discharge given patient noted CT abdomen and pelvis with evidence of marked distention of the bladder with wall thickening, mild hydronephrosis in the transplant kidney located in the right pelvis as well as marked hydroureter and hydronephrosis of the qagan tayagungin ureters and kidneys increased compared to prior CT, small bowel ileus with no evidence of bowel obstruction with moderate stool in the colon per recommendation of Dr. Cuevas, current utilization management manager Urologist. Amenable to d/c ga catheter and resumption of home self catheterization regimen. Bld cx x 2 obtained in the ED NGTD. PT, OT, CM Consultation w/ transition to TCU 01/16/18 AM. Additionally during admission, admission BUN/Cr 25/2.13, baseline Cr 1.6-1.8, continue cellcept, prograf regimen. Held bactrim transiently as noted w/ zosyn usage x 3 days, transitioned back after completion, 01/14/18 BUN/Cr 15/1.51-->01/16/18 BUN/Cr 13/1.26 01/15/18, returned to baseline. CT abdomen and pelvis with evidence of marked distention of the bladder with wall thickening, mild hydronephrosis in the transplant kidney located in the right pelvis as well as marked hydroureter and hydronephrosis of the qagan tayagungin ureters and kidneys increased compared to prior CT. During admission following zosyn start patient w/ onset diarrhea, c-diff negative, loperamide started, improved. DAY OF DISCHARGE PROGRESS NOTE: Subjective: Patient without acute event overnight per self and nursing report. Patient still noting soft stools but per RN only x 1 and has PRN lomotil. Patient denies fever, chills, nausea, emesis, chest pain or dyspnea. Patient agreeable to discharge to SNF. Patient will be discharged to SNF with follow-up with primary care physician, Urology and his transplant team. Objective: T 98.8, heart rate 78, BP 122/70, respiratory rate 18, 97% on room air. Physical Examination: General: awake, alert, oriented x 3, baseline mild MRDD evident, cooperative, seated upright in the bed, NAD, talkative. Skin: normal color, turgor, no icterus, cyanosis. HEENT: AT/NC, EOMI, PERRLA, MMM, remains mildly hoarse. Lungs: Mildly decreased breath sounds bilateral bases, moderate effort, no rales, ronchi or wheezing. Heart: Regular rate with regular rhythm; no gallop, rub audible. Abdomen: soft, decreased suprapubic tenderness, ND, remains mildly hyperactive BS. Extremities: no cyanosis, clubbing, or edema. Neurological: patient awake, alert, oriented as noted; cognitive function mildly decreased from baseline, mild MRDD baseline; pupils equally reactive to light and accomodation; cranial nerves II-XII grossly normal, moving all 4 extremities, no focal deficits, strength improved, remains mildly to moderately globally decreased secondary to acute presentation, stable baseline nystagmus noted. Psychiatric: affect appears flat, suspect mild depression, no acute evidence of anxiety feelings. Assessment and Plan: Please see hospital summary above. Home Medications: Medications to take at Discharge Mycophenolate Mofetil [Cellcept] 500 mg PO 0900,209907/14/16 Amlodipine [Norvasc] 5 mg PO QHS 09/29/17 albuterol sulfate 2.5 mg/3 mL (0.083 %) solution for nebulization 2.5 mg INHALATION Q4H PRN #180 vial 12/15/17 albuterol sulfate 90 mcg/actuation breath activated powder inhaler 2 puff INHALATION Q4H PRN #1 ea 12/22/17 Lactobacillus Acidophilus [Acidophilus] 1 tablet PO BID 01/11/18 Ranitidine [Zantac] 150 mg PO BID 01/11/18 Rivaroxaban [Xarelto] 20 mg PO DAILY 01/11/18 Sulfamethoxazole/Trimethoprim [Sulfamethoxazole-Tmp Ss Tablet] 1 tab PO DAILY 01/11/18 Tacrolimus Anhydrous [Prograf] 2 mg PO 0900,209901/11/18 Loperamide [Imodium] 2 mg PO Q2H PRN PRN capsule 01/16/18 Mag Hydrox/Al Hydrox/Simeth [Mylanta II] 30 ml PO Q6H PRN PRN udc 01/16/18 Na Biphos/Potassium Phosphate [Neutra-Phos Packet] 1 packet PO 4X/DAYCM #20 packet 01/16/18 Primary Care Physician: Mike Bella MD [Primary Care Provider] - Please follow up with your Primary Care Physician in: Follow- up in 1-2 days of SNF discharge and 3-5 days of hospital discharge. Please Follow Up With: Nakul Crenshaw MD When: Follow-up within 2 weeks. Please Follow Up With: Transplant Team When: Please follow-up within 2-4 weeks w/ your team. Disposition: Intermediate facility Minutes spent on discharge:: 35 Patient Condition:: Fair Medical Necessity - Tobacco Use Smoking Status: Never smoker Tobacco Use: Non-smoker Meaningful Use Info Meaningful Use Diagnoses (Choose all that apply): None applicable Code Visit Inpatient E AND M: 88331 Disch Hosp 01/16/18 1138 <Electronically signed by Jesica Russo > Date Jesica Russo Cosigner Signature (if applicable): Date CC: Jesica Russo; Mike Bella MD Signed TRANSFER TO EXTENDED Observed: 01/16/2018 Status: F Source: [facility] 7:49 AM [facility] REPOSITORY [facility] Medical Records Department [address] [place] [address] [facility] MR#: [id number] Acct: [id number] Name: SKYLER PINZON Rep #: [id number] : 1965 52 From: Jesica Russo PCP: Mike Bella MD Status: ADM IN SKYLER PINZON (Patient) (Health Ins. Claim No.) (Day of Discharge to Facility) Certification of patient admission REQUIRED AT TIME OF ADMISSION. I CERTIFY THAT POST-HOSPITAL ECF SERVICES ARE REQUIRED TO BE GIVEN ON AN IN-PATIENT BASIS BECAUSE OF THE ABOVE NAMED PATIENT'S NEED FOR SENIOR LIVING CARE ON A CONTINUING BASIS FOR THE CONDITION(S) FOR WHICH HE/SHE WAS RECEIVING IN-PATIENT HOSPITAL SERVICES PRIOR TO HIS/HER TRANSFER TO THE F. 01/16/18 0749 <Electronically signed by Jesica Russo > Date Jesica L White - Diet 01/11/18 19:16 Diet: Cardiac/Low Cholesterol Food consistency:: Regular Liquid Consistency:: Regular/Thin - Routine Orders/Code Status Enema Type: Fleetz Enema Frequency: Daily PRN Suppository Type: Dulcolax 10mg Suppository Frequency: Daily PRN Keep PO Greater than or Equal to (%): 92 Routine Lab Work: - - Repeat CBC, BMP within 1 week. Code Status: Full Code - Therapies Weight Bearing: Full weight bearing Physical Therapy: Eval and Treat Occupational Therapy: Eval and Treat - Problem/Diagnosis (1) Acute UTI Status: Acute Current Visit: No (2) Sepsis Status: Acute Current Visit: Yes (3) PRISCILLA (acute kidney injury) Status: Acute Current Visit: Yes (4) Pulmonary embolism Status: Chronic Current Visit: No (5) CKD (chronic kidney disease), stage III Status: Chronic Current Visit: No (6) Kidney transplant recipient Status: Chronic Current Visit: No (7) Congenital nystagmus Status: Chronic Current Visit: No (8) Mild MRDD Status: Chronic Current Visit: No (9) DVT (deep venous thrombosis) Status: Chronic Current Visit: No (10) Neurogenic bladder disorder Status: Chronic Comment: managed with cic Current Visit: No - Allergies/Procedures Done in Hospital Allergies/Adverse Reactions: Allergies No Known Allergies Allergy (Verified 12/22/17 11:09) Procedures: EKG - Type of Care/Length of Stay Estimated LOS: Convalescent Care Less Than 30 days Type of Care Needed: Skilled Rehab Potential: Good Prognosis: Good - Additional Orders/Day of Discharge Additional Orders: (1) HOB. (2) IS 10x/hr 7a-7p. (3) Encourage OOB to chair with all meals and with therapies. (4) Must continue to teach and monitor all straight cathing, q 4hours during the day per his prior home regimen. H AND P will serve as current which was dated: 01/11/18 Day of Discharge: 01/16/18 - Dietary and Speech Recommendations Dietitian Recommendations/Changes: Consider liberalizing diet to regular with no added salt per pt preference. - Follow Up Care Primary Care Physician: Mike Bella MD [Primary Care Provider] - Please follow up with your Primary Care Physician in: Follow- up in 1-2 days of SNF discharge and 3-5 days of hospital discharge. Please Follow Up With: Nakul Crenshaw MD When: Follow-up within 2 weeks. Please Follow Up With: Transplant Team When: Please follow-up within 2-4 weeks w/ your team. 01/16/18 0749 <Electronically signed by Jesica Russo > Date Jesica Russo CC: Lauren Cuevas MD; Mike Bella MD Signed RENAL PROFILE Collected: 01/15/2018 Status: F Source: [place] 6:55 AM [facility] REPOSITORY TYPE CODE TESTS RESULT OUT OF RANGE REFERENCE UNITS LAB L501.0100 74-106 mg/dL Normal GLU 86 Result Comment: Please note revised GLUCOSE reference range effective 2017. LAB L501.1000 7-18 mg/dL Normal BUN 13 LAB L501.1100 0.70-1.30 mg/dL Normal CREAT,SERUM 1.26 Result Comment: The validity of the calculated GFR AND GFRAA in patients over 70 years has not been determined. Clinical correlation is essential. LAB L501.1110 >60 mL/min Normal EST GFR 64 Result Comment: Non- GFR Calc LAB L501.1115 >60 mL/min Normal EST GFR - AA 78 Result Comment: GFR Calc LAB L501.1255 ml/min Normal Estimated CRCL 75.60 LAB L501.1300 10-20 RATIO Normal BUN/CRE 10.3 LAB L501.1800 3.2-5. g/dL Low 0 ALB 2.3 LAB L501.2200 8.5-10 mg/dL Low .1 CA 7.8 LAB L501.2300 2.5-4. mg/dL Low 9 PHOS 2.2 LAB L501.5300 136-14 mmol/L Normal 5 NA 145 LAB L501.5600 3.5-5. mmol/L Normal 1 K 4.2 LAB L501.5900 98-107 mmol/L High CL 115 LAB L501.6100 21.0-3 mmol/L Normal 2.0 CO2 22.0 Performed By: #### L500.3600 #### [facility] [address] [place], [place], [id number] CBC W/DIFF, AUTOMATED Collected: 01/15/2018 Status: F Source: [place] 6:55 AM [facility] REPOSITORY TYPE CODE TESTS RESULT OUT OF RANGE REFERENCE UNITS LAB L100.1000 4.4-11.0 K/mm3 Low WBC 4.0 LAB L100.1200 4.6-6.2 M/mm3 Low RBC 3.73 LAB L100.1300 13.0-16.5 g/dl Low HGB 9.8 LAB L100.1400 40-54 % Low HCT 32.0 LAB L100.1500 80-94 fL Normal MCV 85.8 LAB L100.1600 27.0-32.0 pg Low MCH 26.3 LAB L100.1700 32-36 g/gl Low MCHC 30.6 LAB L100.1810 11.6-14.6 % High RDW CV 15.0 LAB L100.1820 35.1-43.9 fl High RDW SD 47.2 LAB L100.1900 150-450 K/mm3 High PLT 458 LAB L100.2000 6.2-12.0 fl Normal MPV 9.3 LAB L100.2100 47-70 % Normal NEUT% 60.3 LAB L100.2200 19-41 % Normal LY% 21.3 LAB L100.2300 0-10 % High MONO% 10.1 LAB L100.2400 0-5 % High EO% 6.8 LAB L100.2500 0-1 % Normal BASO% 1.0 LAB L100.2550 0.0-0.9 % Normal IM GRAN % 0.500 Result Comment: IG% - Immature Granulocytes (promyelocytes, myelocytes and metamyelocytes) > 1% indicates that a LEFT SHIFT is Present. LAB L100.2620 2.0-7.7 X10 3/uL Normal Absolute Neut 2.4 LAB L100.2720 0.83-4.51 X10 3/ul Normal Absolute Lymph 0.84 Performed By: #### L100.0100 #### [facility] [address] [place], [place], [address] Observed: 01/14/2018 Status: F Source: [place] CDIFF (MOLECULAR) 12:05 PM [facility] REPOSITORY Is the patient receiving laxatives? N New/unexplained onset of 3 or more stools in past 24 hrs? Y Cdiff-Molecular C. Diff DNA Negative- No toxigenic C. Diff DNA Detected NAAT METHOD Testing was performed using nucleic acid amplification Performed By: #### M100.6796 #### [facility] [address] [place], [address] CBC W/DIFF, AUTOMATED Collected: 01/14/2018 Status: F Source: [place] 6:10 AM [facility] REPOSITORY TYPE CODE TESTS RESULT OUT OF RANGE REFERENCE UNITS LAB L100.1000 4.4-11.0 K/mm3 Normal WBC 5.1 LAB L100.1200 4.6-6.2 M/mm3 Low RBC 3.64 LAB L100.1300 13.0-16.5 g/dl Low HGB 9.7 LAB L100.1400 40-54 % Low HCT 31.4 LAB L100.1500 80-94 fL Normal MCV 86.3 LAB L100.1600 27.0-32.0 pg Low MCH 26.6 LAB L100.1700 32-36 g/gl Low MCHC 30.9 LAB L100.1810 11.6-14.6 % High RDW CV 14.9 LAB L100.1820 35.1-43.9 fl High RDW SD 45.3 LAB L100.1900 150-450 K/mm3 Normal PLT 433 LAB L100.2000 6.2-12.0 fl Normal MPV 9.3 LAB L100.2100 47-70 % High NEUT% 71.2 LAB L100.2200 19-41 % Low LY% 13.9 LAB L100.2300 0-10 % Normal MONO% 9.2 LAB L100.2400 0-5 % Normal EO% 4.3 LAB L100.2500 0-1 % Normal BASO% 0.8 LAB L100.2550 0.0-0.9 % Normal IM GRAN % 0.600 Result Comment: IG% - Immature Granulocytes (promyelocytes, myelocytes and metamyelocytes) > 1% indicates that a LEFT SHIFT is Present. LAB L100.2620 2.0-7.7 X10 3/uL Normal Absolute Neut 3.6 LAB L100.2720 0.83-4.51 X10 3/ul Low Absolute Lymph 0.71 Performed By: #### L100.0100 #### [facility] [address] [place], [place], [address] BASIC METABOLIC Collected: 01/14/2018 Status: F Source: [place] PROFILE (BMP) 6:10 AM [facility] REPOSITORY TYPE CODE TESTS RESULT OUT OF RANGE REFERENCE UNITS LAB L501.0100 74-106 mg/dL Normal GLU 86 Result Comment: Please note revised GLUCOSE reference range effective 2017. LAB L501.1000 7-18 mg/dL Normal BUN 15 LAB L501.1100 0.70-1.30 mg/dL High CREAT,SERUM 1.51 Result Comment: The validity of the calculated GFR AND GFRAA in patients over 70 years has not been determined. Clinical correlation is essential. LAB L501.1110 >60 mL/min Low EST GFR 52 Result Comment: Non- GFR Calc LAB L501.1115 >60 mL/min Normal EST GFR - AA 63 Result Comment: GFR Calc LAB L501.1255 ml/min Normal Estimated CRCL 63.08 LAB L501.1300 10-20 RATIO Low BUN/CRE 9.9 LAB L501.2200 8.5-10 mg/dL Low .1 CA 7.7 LAB L501.5300 136-14 mmol/L Normal 5 NA 144 LAB L501.5600 3.5-5. mmol/L Normal 1 K 4.2 LAB L501.5900 98-107 mmol/L High CL 116 LAB L501.6100 21.0-3 mmol/L Low 2.0 CO2 19.0 LAB L501.6200 5-15 Normal GAP 9 Performed By: #### L500.2500 #### [facility] [address] [facility] [address] [place], [place], [address] CBC W/DIFF, AUTOMATED Collected: 01/13/2018 Status: F Source: [place] 7:50 AM [facility] REPOSITORY TYPE CODE TESTS RESULT OUT OF RANGE REFERENCE UNITS LAB L100.1000 4.4-11.0 K/mm3 Normal WBC 4.8 LAB L100.1200 4.6-6.2 M/mm3 Low RBC 3.55 LAB L100.1300 13.0-16.5 g/dl Low HGB 9.7 LAB L100.1400 40-54 % Low HCT 30.6 LAB L100.1500 80-94 fL Normal MCV 86.2 LAB L100.1600 27.0-32.0 pg Normal MCH 27.3 LAB L100.1700 32-36 g/gl Low MCHC 31.7 LAB L100.1810 11.6-14.6 % High RDW CV 14.9 LAB L100.1820 35.1-43.9 fl High RDW SD 45.3 LAB L100.1900 150-450 K/mm3 Normal PLT 438 LAB L100.2000 6.2-12.0 fl Normal MPV 9.4 LAB L100.2100 47-70 % Normal NEUT% 69.0 LAB L100.2200 19-41 % Low LY% 12.4 LAB L100.2300 0-10 % High MONO% 12.8 LAB L100.2400 0-5 % Normal EO% 4.8 LAB L100.2500 0-1 % Normal BASO% 0.6 LAB L100.2550 0.0-0.9 % Normal IM GRAN % 0.400 Result Comment: IG% - Immature Granulocytes (promyelocytes, myelocytes and metamyelocytes) > 1% indicates that a LEFT SHIFT is Present. LAB L100.2620 2.0-7.7 X10 3/uL Normal Absolute Neut 3.3 LAB L100.2720 0.83-4.51 X10 3/ul Low Absolute Lymph 0.60 LAB L100.4500 Normal SMEAR COMMENT COMMENT Result Comment: SLIDE SCANNED - LYMPHOPENIA NOTED. Performed By: #### L100.0100 #### [facility] [address] [place], [place], [address] BASIC METABOLIC Collected: 01/13/2018 Status: F Source: [place] PROFILE (BMP) 7:50 AM [facility] REPOSITORY TYPE CODE TESTS RESULT OUT OF RANGE REFERENCE UNITS LAB L501.0100 74-106 mg/dL Normal GLU 87 Result Comment: Please note revised GLUCOSE reference range effective 2017. LAB L501.1000 7-18 mg/dL Normal BUN 15 LAB L501.1100 0.70-1.30 mg/dL High CREAT,SERUM 1.51 Result Comment: The validity of the calculated GFR AND GFRAA in patients over 70 years has not been determined. Clinical correlation is essential. LAB L501.1110 >60 mL/min Low EST GFR 52 Result Comment: Non- GFR Calc LAB L501.1115 >60 mL/min Normal EST GFR - AA 63 Result Comment: GFR Calc LAB L501.1255 ml/min Normal Estimated CRCL 63.08 LAB L501.1300 10-20 RATIO Low BUN/CRE 9.9 LAB L501.2200 8.5-10 mg/dL Low .1 CA 7.7 LAB L501.5300 136-14 mmol/L Normal 5 NA 145 LAB L501.5600 3.5-5. mmol/L Normal 1 K 4.3 LAB L501.5900 98-107 mmol/L High CL 116 LAB L501.6100 21.0-3 mmol/L Low 2.0 CO2 19.0 LAB L501.6200 5-15 Normal GAP 10 Performed By: #### L500.2500 #### [facility] [facility] [place], [address] Observed: 01/12/2018 Status: F Source: [place] CULTURE, URINE 11:35 AM [facility] REPOSITORY Has pt arrived? Y Urine Culture Culture exhibits no growth. Performed By: #### M100.0650 #### [facility] [address] [place] [address]. [place], [address] Observed: 01/12/2018 Status: F Source: [place] CULTURE, BLOOD (WB) 11:14 AM [facility] REPOSITORY Has pt arrived? Y BC No growth in 5 days. Performed By: #### M200.1000 #### [facility] [address] [place] [address]. [place], [address] Observed: 01/12/2018 Status: F Source: [place] CULTURE, BLOOD (WB) 11:10 AM [facility] REPOSITORY Has pt arrived? Y BC No growth in 5 days. Performed By: #### M200.1000 #### [facility] [address] [place], [address] CBC W/DIFF, AUTOMATED Collected: 01/12/2018 Status: F Source: [place] 5:58 AM [facility] REPOSITORY TYPE CODE TESTS RESULT OUT OF RANGE REFERENCE UNITS LAB L100.1000 4.4-11.0 K/mm3 Normal WBC 6.3 LAB L100.1200 4.6-6.2 M/mm3 Low RBC 3.58 LAB L100.1300 13.0-16.5 g/dl Low HGB 9.7 LAB L100.1400 40-54 % Low HCT 30.8 LAB L100.1500 80-94 fL Normal MCV 86.0 LAB L100.1600 27.0-32.0 pg Normal MCH 27.1 LAB L100.1700 32-36 g/gl Low MCHC 31.5 LAB L100.1810 11.6-14.6 % High RDW CV 14.9 LAB L100.1820 35.1-43.9 fl High RDW SD 44.7 LAB L100.1900 150-450 K/mm3 Normal PLT 423 LAB L100.2000 6.2-12.0 fl Normal MPV 10.0 LAB L100.2100 47-70 % Normal NEUT% 70.0 LAB L100.2200 19-41 % Low LY% 10.1 LAB L100.2300 0-10 % High MONO% 15.5 LAB L100.2400 0-5 % Normal EO% 3.6 LAB L100.2500 0-1 % Normal BASO% 0.6 LAB L100.2550 0.0-0.9 % Normal IM GRAN % 0.200 Result Comment: IG% - Immature Granulocytes (promyelocytes, myelocytes and metamyelocytes) > 1% indicates that a LEFT SHIFT is Present. LAB L100.2620 2.0-7.7 X10 3/uL Normal Absolute Neut 4.4 LAB L100.2720 0.83-4.51 X10 3/ul Low Absolute Lymph 0.64 Performed By: #### L100.0100 #### [facility] [address] [place], [place], [address] BASIC METABOLIC Collected: 01/12/2018 Status: F Source: [place] PROFILE (BMP) 5:58 AM [facility] REPOSITORY TYPE CODE TESTS RESULT OUT OF RANGE REFERENCE UNITS LAB L501.0100 74-106 mg/dL Normal GLU 96 Result Comment: Please note revised GLUCOSE reference range effective 2017. LAB L501.1000 7-18 mg/dL High BUN 21 LAB L501.1100 0.70-1.30 mg/dL High CREAT,SERUM 1.68 Result Comment: The validity of the calculated GFR AND GFRAA in patients over 70 years has not been determined. Clinical correlation is essential. LAB L501.1110 >60 mL/min Low EST GFR 46 Result Comment: Non- GFR Calc LAB L501.1115 >60 mL/min Low EST GFR - AA 56 Result Comment: GFR Calc LAB L501.1255 ml/min Normal Estimated CRCL 56.70 LAB L501.1300 10-20 RATIO Normal BUN/CRE 12.5 LAB L501.2200 8.5-10 mg/dL Low .1 CA 7.4 LAB L501.5300 136-14 mmol/L Normal 5 NA 143 LAB L501.5600 3.5-5. mmol/L Normal 1 K 4.3 LAB L501.5900 98-107 mmol/L High CL 113 LAB L501.6100 21.0-3 mmol/L Normal 2.0 CO2 21.0 LAB L501.6200 5-15 Normal GAP 9 Performed By: #### L500.2500 #### [facility] [address] [facility] [place], [address] HISTORY AND PHYSICAL Observed: 01/11/2018 Status: F Source: [place] EXAM 7:46 PM [facility] REPOSITORY [facility] Medical Records Department [address] [place] [address] History and Physical 01/11/18 1901 MR#: [id number] Acct: [id number] Name: SKYLER PINZON Rep #: [id number] : 1965 52 From: Jesica Russo PCP: Mike Bella MD Status: ADM IN Y Location: [place] [address] Problem List (1) Acute UTI Status: Acute (2) Sepsis Status: Acute Qualifiers: Sepsis type: sepsis due to unspecified organism Qualified Code(s): A41.9 - Sepsis, unspecified organism (3) PRISCILLA (acute kidney injury) Status: Acute (4) Pulmonary embolism Status: Chronic Qualifiers: Pulmonary embolism type: other Chronicity: unspecified Acute cor pulmonale presence: without acute cor pulmonale Qualified Code(s): I26.99 - Other pulmonary embolism without acute cor pulmonale (5) CKD (chronic kidney disease), stage III Status: Chronic (6) Kidney transplant recipient Status: Chronic (7) Congenital nystagmus Status: Chronic (8) Mild MRDD Status: Chronic (9) DVT (deep venous thrombosis) Status: Chronic Qualifiers: DVT location: lower extremity Affected thrombotic vein of extremity: unspecified vein of extremity Chronicity: unspecified Laterality: unspecified laterality Qualified Code(s): I82.409 - Acute embolism and thrombosis of unspecified deep veins of unspecified lower extremity (10) Neurogenic bladder disorder Status: Chronic Comment: managed with cic History of Present Illness Date of Admission: 01/11/18 Chief Complaint: Dark urine, suprapubic pain, low-grade temperatures. The patient is a 52 y/o M w/ PMHx: Mild MRDD with help from his family/sister w/ Congenital Nystagmus, CKD stage III (baseline Cr 1.6, prior ESRD s/p Renal Txp), Renal Txp status on immunosuppressive therapy, Neurogenic bladder w/ self catheterization although not always complaint with q 4 hours during daytime, Hx DVT and PE on xarelto regimen who presents to the [facility] ED on 01/11/18 with history of ongoing low-grade temperatures, fatigue, weakness, more quiet than usual per sister report in addition to onset of suprapubic discomfort on day of ED presentation. Patient also noted that his urine was more dark in appearance, unclear if foul-smelling. Patient states that he has been compliant with his self-catheterization which is improved from prior. Sister is present and confirms that patient has been compliant with his catheterization regimen. He notes that patient had been seen approximately 2 weeks prior to current presentation with ENT and was treated for oral thrush, suspected from aerosol regimen which patient had been on prior for bronchitis which has resolved. He notes follow-up with ENT and pulmonary in the next month in addition to nephrology in 3 months which likely will need to be moved up. In the ED work-up included T 99.4, heart rate 114, BP 123/75, respiratory rate 17, 99% on room air, BC with WBC 7.3, hemoglobin 11, platelets 509 with left shift, BMP with chloride 108, carbon dioxide 19, BUN/Cr 25/2.13 (baseline Cr 1.6), Leukos 115, lipase 230, urinalysis concerning for urinary tract infection, CT abdomen and pelvis with evidence of marked distention of the bladder with wall thickening, mild hydronephrosis in the transplant kidney located in the right pelvis as well as marked hydroureter and hydronephrosis of the qagan tayagungin ureters and kidneys increased compared to prior CT, small bowel ileus with no evidence of bowel obstruction with moderate stool in the colon. ED patient administered Rocephin, morphine, Zofran and normal saline 1 L bolus. Patient's most recently reviewed micro urine included UTI 12/07/17 with Hafnia alvei sensitive to cefepime, and sensitive to Rocephin, sensitive to Cipro, and sensitive to gent, sensitive to imipenem, sensitive to levofloxacin, sensitive to right nitrofurantoin, sensitive to Zosyn, sensitive to tobramycin as well as Enterococcus 08/20/17 with sensitive to gent, linezolid, nitrofurantoin, streptomycin and vancomycin only. Past Medical History Past Medical History (Chronic Problems): Chronic Problems (Last Reviewed 12/22/17 @ 11:28 by Siria Harp, DEHORNER-C) Pulmonary embolism (Chronic) Pulmonary infiltrate present on computed tomography (Chronic) CKD (chronic kidney disease), stage III (Chronic) Kidney transplant recipient (Chronic) Congenital nystagmus (Chronic) Mild MRDD (Chronic) DVT (deep venous thrombosis) (Chronic) Renal transplant, status post (Chronic) Neurogenic bladder disorder (Chronic) managed with cic Medical History: Medical History (Last Reviewed 12/22/17 @ 11:28 by Siria Harp, DEHORNER-C) Right-sided chest pain (Acute) R07.9 Nonproductive cough (Acute) R05 Bronchitis (Acute) J40 Pulmonary embolism (Chronic) I26.99 Chest pain (Acute) R07.9 Pulmonary infiltrate present on computed tomography (Chronic) R91.8 CKD (chronic kidney disease), stage III (Chronic) N18.3 Acute UTI (Acute) N39.0 Kidney transplant recipient (Chronic) Z94.0 Congenital nystagmus (Chronic) H55.01 Mild MRDD (Chronic) DVT (deep venous thrombosis) (Chronic) I82.409 Neurogenic bladder disorder (Chronic) N31.9 managed with cic Allergies No Known Allergies Allergy (Verified 12/22/17 11:09) Home Medications: Ambulatory Orders Medication Instructions Recorded Mycophenolate Mofetil [Cellcept] 500 mg PO 0900,2100 07/14/16 Amlodipine [Norvasc] 5 mg PO QHS 09/29/17 Surgical History: Surgical History (Last Reviewed 12/22/17 @ 11:28 by Siria Harp NP-C) Renal transplant, status post (Chronic) Z94.0 Surgical History: - - Right kidney transplant , dialysis access prior, Right upper extremity fistula. Psychiatric History: No pertinent psych hx, - - MRDD Lives: Alone Smoking Status: Never smoker Tobacco Use: Non-smoker Alcohol: None Drugs: None - *Family History Maternal History Items: Hypertension Paternal History Items: Diabetes Review of Systems Constitutional: Reports: Anorexia, Fever, Malaise, Weakness, Fatigue. Denies: Chills, Weight Change HEENT: Reports: Dysphasia. Denies: Head Aches, Sinus Congestion, Sinus Drainage Cardiovascular: Denies: Chest Pain, Palpitations Respiratory: Denies: Cough, Shortness of breath at rest, Sputum production Gastrointestinal: Reports: Abdominal Pain. Denies: Nausea, Vomiting Genitourinary: Reports: Hematuria, Retention. Denies: Dysuria Musculoskeletal: Denies: Joint Pain, Joint Tenderness Skin: Denies: Rash, Wounds Neurological: Denies: Numbness, Tingling, Focal weakness Psychiatric: Reports: Anxiety. Denies: Depression, Homicidal Ideations, Suicidal Ideations Hematologic/ Lymphatic: Denies: Easy Bruising, Easy Bleeding VTE Information - Inpt Only VTE Present on Admission: No VTE Mechan Device Prophylaxis: SCD's VTE Pharm Prophylaxis ordered?: No Reason prophylaxis not ordered:: Treatment Not Indicated - On xarelto Patient Problems: Active and Suspected Problems (Last Reviewed 12/22/17 @ 11:28 by Siria Harp NP-C) Sepsis (Acute) PRISCILLA (acute kidney injury) (Acute) Subjective: Patient seated upright in ED bed, very quiet which is his baseline but still less interactive than prior admissions. Objective: Physical Examination: General: awake, alert, oriented x 3, baseline mild MRDD evident, still interactive but quiet, cooperative, seated upright in the ED bed in no apparent distress. Skin: normal color, turgor, no icterus, cyanosis. HEENT: AT/NC, EOMI, PERRLA, moderately dry MM, oropharynx with no evidence of thrush, improved oral hygiene noted, no carotid bruits or JVD noted. Lungs: Managed breath sounds bilateral bases, moderate effort, no rales, ronchi or wheezing. Heart: Cardiac with regular rhythm; no gallop, rub audible. Abdomen: soft, suprapubic tenderness to palpation otherwise nontender to palpation, ND, normal BS, no HSM. Extremities: no cyanosis, clubbing, or edema. Neurological: patient awake, alert, oriented as noted; cognitive function mildly decreased from baseline, mild MRDD baseline; pupils equally reactive to light and accomodation; cranial nerves II-XII grossly normal, moving all 4 extremities, no focal deficits, strength moderately globally decreased secondary to acute presentation, stable baseline nystagmus noted. Psychiatric: affect appears flat, no acute evidence of depressive or anxiety feelings. - Physical Exam Vital Signs Temp Pulse Resp BP Pulse Ox 99.4 F H 98 16 134/85 H 99 01/11/18 15:04 01/11/18 18:38 01/11/18 18:38 01/11/18 18:38 01/11/18 15:04 Oxygen Delivery Method Room Air Weight: 171 lb Body Mass Index (BMI) 23.1 Laboratory Tests Past 24 Hrs WBC RBC Hgb Hct Assessment/Plan All Active Problems (Last Reviewed 12/22/17 @ 11:28 by Siria Harp NP-C) Sepsis (Acute) PRISCILLA (acute kidney injury) (Acute) Right-sided chest pain (Acute) Nonproductive cough (Acute) Bronchitis (Acute) Chest pain (Acute) Acute UTI (Acute) The patient is a 52 y/o M w/ PMHx: Mild MRDD with help from his family/sister w/ Congenital Nystagmus, CKD stage III (baseline Cr 1.6, prior ESRD s/p Renal Txp), Renal Txp status on immunosuppressive therapy, Neurogenic bladder w/ self catheterization although not always complaint with q 4 hours during daytime, Hx DVT and PE on xarelto regimen who presents to the [facility] ED on 01/11/18 with history of ongoing low-grade temperatures, fatigue, weakness, more quiet than usual per sister report in addition to onset of suprapubic discomfort on day of ED presentation. (1) Acute Sepsis secondary to Acute Complicated Urinary Tract Infection w/ Neurogenic Bladder and Self-Catheterization: Non-compliant with self catherization regimen. Ga placed in the ED. Will admit to [facility] upon ED evaluation remarkable, pending UCx, admission CBC w/ WBC 7.3 with marked L shift, LA pending, continue IVFs, monitor I/Os, initiate IV zosyn given prior sensitivities and dose vanc IV x 1 w/ transition as able pending sensitivities and speciation. Bld cx x 2 obtained in the ED. (3) Acute Kidney Injury on CKD stage III, Prior ESRD/CKD IV, status post kidney transplant: Admission BUN/Cr 25/2.13, stable, baseline Cr 1.6-1.8, continue cellcept, prograf regimen. Holding bactrim for noted treatment #1. (4) Hypertension: Continue home regimen including norvasc with hold parameters, PRN hydralazine. (5) Mild mental retardation: Stable, family supportive. (6) Hx DVT, PE: Maintain on home xarelto regimen but monitor Hgb given hematuria associated w/ acute UTI, expect to improve. (7) GERD: Protonix given renal fx. (8) Recent Oral Thrush: Appears resolved, will continue regimen to completion per ENT recommendation. (9) DVT Prophylaxis: SCDs, xarelto as noted. Code Visit Inpatient E AND M: 55946 Init Hosp L3 01/11/181945 <Electronically signed by Jesica Russo > Date Jesica Russo Cosigner Signature: Date (if applicable) CC: Jesica Russo; Mike Bella MD Signed EMERGENCY DEPARTMENT Observed: 01/11/2018 Status: F Source: [place] SUMMARY 7:11 PM [facility] REPOSITORY [facility] Medical Records Department [address] [place] [address] Emergency Department Summary 01/11/18 1554 MR#: [id number] Acct: [id number] Name: SKYLER PINZON Rep #: [id number] : 1965 52 From: Ga Hollingsworth MD PCP: Mike Bella MD Status: REG ER - ER Visit Summary Date of Service: 01/11/18 Chief Complaint: Abdominal pain History of Present Illness: The patient is a 52 M who presents with abdominal pain. States it started today. It sharp and diffuse. Nothing makes it better or worse. Denies nausea or vomiting. He did have some diarrhea last night. Denies any urinary symptoms. Patient has a history of a kidney transplant. This was due to postobstructive uropathy. He now self cath. He is on tacrolimus and mycophenolate for immunosuppression. He is also on Xarelto for PE. His urine has been darker. There is been no fevers. Physical Examination: Vital signs reviewed. HEENT exam unremarkable. Heart is tachycardic and regular rhythm without murmurs. Lungs are clear to auscultation. Abdomen is soft with diffuse tenderness. There is voluntary guarding diffusely. Right arm fistula is patent with a pulse with good thrill. Extremities reveal no edema. Skin exam normal. Neurologic exam normal. Test Results: White blood cell count normal. Creatinine 2.13, urinalysis shows infection with blood. CAT scan reveals bladder distention, mild hydronephrosis as well as a small bowel ileus. Emergency Department Course and Treatment: Patient was given morphine with IV fluids. He was started on Rocephin. I spoke with the hospitalist and she informed me that the last 2 urine culture is were resistant to Rocephin however the patient already received it. Likely will be switched to Zosyn. Patient will have a Ga catheter placed due to the bladder distention. He will be admitted to the hospital. Lactic acid is pending Treatment Plan: [] Disposition: Admit Impression: Sepsis, UTI, ileus, This note was generated with [employer] dictation software. It may contain incorrect words, spelling, and punctuation that were not noted in review of the chart prior to signing ED Disposition - Plan for ED Patient: Chief Complaint: Abd Pain Referrals: Mike Bella MD [Primary Care Provider] - What to do if you have Problems For any increased pain, shortness of breath, bleeding, nausea or vomiting, chest pain, or any unexpected problems, contact your Primary Care Provider. Call [facility] ([phone]) or report to the closest Emergency Room. Call 911 if necessary. 01/11/18 1911 <Electronically signed by Ga Hollingsworth MD> Date Ga Hollingsworth MD Cosigner Signature (If Indicated): Date CC: Mike Bella MD LACTIC ACID Collected: 01/11/2018 Status: F Source: [place] 7:10 PM [facility] REPOSITORY Order Comment: Yes/No query for Sepsis Lactate Rule Y TYPE CODE TESTS RESULT OUT OF RANGE REFERENCE UNITS LAB L503.6005 0.4-2.0 mmol/L Normal LACTIC ACID 0.7 Performed By: #### L503.6005 #### [facility] [address] [place], [address] ABDOMEN/PELVIS WITHOUT Observed: 01/11/2018 Status: F Source: [place] CONT 3:55 PM [facility] REPOSITORY [facility] Imaging Services [address] [place] [address] Abdomen/Pelvis without Cont MR#: [id number] Acct: [id number] Name: SKYLER PINZON Rep #: [id number] : 1965 M 52 From: Vania Miramontes MD PCP: Mike Bella MD Status: REG ER Study: Abdomen/Pelvis without Cont Date of Exam: 01/11/18 Exam# [id number] Ordering Dr: Ga Hollingsworth MD STUDY: CT ABDOMEN AND PELVIS WITHOUT CONTRAST REASON FOR EXAM: Male, 52 years old. Abdominal pain RADIATION DOSAGE (If Supplied By Facility): CTDIvol = ( 6.69 ) mGy, DLP = ( 325.87 ) mGycm TECHNIQUE: Transaxial images were obtained from the lower chest to the upper thighs without oral contrast, and without intravenous contrast. Sagittal and coronal images were reconstructed. Individualized dose optimization techniques were used for this CT. COMPARISON: July 16, 2017 FINDINGS: There is minimal dependent atelectasis in both lung bases. There is no pleural effusion. The heart is normal in size. The liver is prominent in size with slight decreased density, suggesting fatty infiltration. The gallbladder and biliary ducts are unremarkable. The spleen is unremarkable. The pancreas is unremarkable. The adrenal glands are unremarkable. The qagan tayagung[place] kidneys are markedly atrophic with cortical thinning and numerous cysts. There is marked dilatation of the collecting systems in both qagan tayagung[place] kidneys, and there is marked dilatation of both qagan t[place] ureters. There is a transplant kidney in the right pelvis. There is mild dilatation of the collecting system in the transplant kidney. The stomach is unremarkable. A few small bowel loops are prominent. There is moderate stool in the proximal colon. There is non-visualization of the appendix. The aorta and branch vessels are unremarkable. The IVC is unremarkable. The retroperitoneum is unremarkable. There is no free fluid in the abdomen. The urinary bladder is distended. There is wall thickening along the bladder. The prostate is normal in size with coarse calcifications. There are small phleboliths scattered in the lower pelvis. The soft tissues are unremarkable. There are mild degenerative changes in the visualized spine. CT/Abdomen/Pelvis without Cont IMPRESSION: There is marked distention of the urinary bladder with wall thickening, possible cystitis. There is mild hydronephrosis in the transplant kidney located in the right pelvis. There is marked hydroureter and hydronephrosis of the qagan tayagung[place] ureters and kidneys, increased compared to the prior CT. There is small bowel ileus. There is no evidence of bowel obstruction. There is moderate stool in the colon. There is no ascites, free air or significant lymphadenopathy. Electronically Signed: Vania Miramontes MD at 16:50 EDT Tel Direct: [phone], Service support , CC: Ga Hollingsworth MD; Mike Bella MD Admitted Attorneys: Signed BASIC METABOLIC Collected: 01/11/2018 Status: F Source: [place] PROFILE (BMP) 3:50 PM [facility] REPOSITORY TYPE CODE TESTS RESULT OUT OF RANGE REFERENCE UNITS LAB L501.0100 74-106 mg/dL High GLU 115 Result Comment: Fasting Glucose result from 100 to 125 mg/dL suggests IMPAIRED HOMEOSTASIS per A.D.A. criteria. Please note revised GLUCOSE reference range effective 2017. LAB L501.1000 7-18 mg/dL High BUN 25 LAB L501.1100 0.70-1.30 mg/dL High CREAT,SERUM 2.13 Result Comment: The validity of the calculated GFR AND GFRAA in patients over 70 years has not been determined. Clinical correlation is essential. LAB L501.1110 >60 mL/min Low EST GFR 35 Result Comment: Non- GFR Calc LAB L501.1115 >60 mL/min Low EST GFR - AA 42 Result Comment: GFR Calc LAB L501.1255 ml/min Normal Estimated CRCL 45.52 LAB L501.1300 10-20 RATIO Normal BUN/CRE 11.7 LAB L501.2200 8.5-10 mg/dL Normal .1 CA 8.6 LAB L501.5300 136-14 mmol/L Normal 5 NA 139 LAB L501.5600 3.5-5. mmol/L Normal 1 K 4.4 LAB L501.5900 98-107 mmol/L High CL 108 LAB L501.6100 21.0-3 mmol/L Low 2.0 CO2 19.0 LAB L501.6200 5-15 Normal GAP 12 Performed By: #### L500.2500 #### [facility] [address] [place], [place], [id number] CBC W/DIFF, AUTOMATED Collected: 01/11/2018 Status: F Source: [place] 3:50 PM [facility] REPOSITORY TYPE CODE TESTS RESULT OUT OF RANGE REFERENCE UNITS LAB L100.1000 4.4-11.0 K/mm3 Normal WBC 7.3 LAB L100.1200 4.6-6.2 M/mm3 Low RBC 4.12 LAB L100.1300 13.0-16.5 g/dl Low HGB 11.0 LAB L100.1400 40-54 % Low HCT 35.1 LAB L100.1500 80-94 fL Normal MCV 85.2 LAB L100.1600 27.0-32.0 pg Low MCH 26.7 LAB L100.1700 32-36 g/gl Low MCHC 31.3 LAB L100.1810 11.6-14.6 % High RDW CV 14.8 LAB L100.1820 35.1-43.9 fl High RDW SD 46.2 LAB L100.1900 150-450 K/mm3 High PLT 509 LAB L100.2000 6.2-12.0 fl Normal MPV 9.5 LAB L100.2100 47-70 % High NEUT% 72.5 LAB L100.2200 19-41 % Low LY% 8.8 LAB L100.2300 0-10 % High MONO% 16.5 LAB L100.2400 0-5 % Normal EO% 1.8 LAB L100.2500 0-1 % Normal BASO% 0.3 LAB L100.2550 0.0-0.9 % Normal IM GRAN % 0.100 Result Comment: IG% - Immature Granulocytes (promyelocytes, myelocytes and metamyelocytes) > 1% indicates that a LEFT SHIFT is Present. LAB L100.2620 2.0-7.7 X10 3/uL Normal Absolute Neut 5.3 LAB L100.2720 0.83-4.51 X10 3/ul Low Absolute Lymph 0.64 Performed By: #### L100.0100 #### [facility] [address] [place], [place], [address] LIPASE Collected: 01/11/2018 Status: F Source: [place] 3:50 PM [facility] REPOSITORY TYPE CODE TESTS RESULT OUT OF RANGE REFERENCE UNITS LAB L501.2450 73-393 U/L Normal LIPASE 230 Performed By: #### L501.2450 #### [facility] [address] [place], [place], [id number] LIVER PROFILE Collected: 01/11/2018 Status: F Source: [place] 3:50 PM [facility] REPOSITORY TYPE CODE TESTS RESULT OUT OF RANGE REFERENCE UNITS LAB L501.1500 6.4-8.2 g/dL Normal T PROT 7.6 LAB L501.1800 3.2-5.0 g/dL Low ALB 3.1 LAB L501.1950 2.2-4.2 g/dL High GLOB 4.5 LAB L501.4100 15-37 U/L Normal AST 20 LAB L501.4305 45-117 U/L Normal ALK P 81 LAB L501.4405 16-61 U/L Normal ALT 21 LAB L501.4600 0.20-1.00 mg/dL Normal T BILI 0.40 LAB L501.4700 0.00-0.30 mg/dL Normal D BILI 0.12 Performed By: #### L500.3400 #### [facility] [address] [place], [address] MAGNESIUM Collected: 01/11/2018 Status: F Source: [place] 3:50 PM [facility] REPOSITORY TYPE CODE TESTS RESULT OUT OF RANGE REFERENCE UNITS LAB L501.5200 1.6-2.6 mg/dL Normal MG 2.0 Performed By: #### L501.5200 #### [facility] [address] [place], [address] URINALYSIS, COMPLETE Collected: 01/11/2018 Status: F Source: [place] 2:43 PM [facility] REPOSITORY Order Comment: Microscopic field is filled. Other elements may be obscured. Order Date: 01/11/18 COLOR OF URINE MAY AFFECT DIPSTICK RESULTS. How was Urine Obtained? CLEAN CATCH TYPE CODE TESTS RESULT OUT OF RANGE REFERENCE UNITS LAB L400.3000 Yellow COLOR Normal Brown LAB L400.3050 Clear Normal CLARITY Turbid LAB L400.3200 Normal mg/dl Normal GLUCOSE, UR Normal LAB L400.3300 Negative mg/dL Normal BILIRUBIN URINE Negative LAB L400.3400 Negative mg/dl High 5 KETONE UR LAB L400.3465 1.002-1.030 Normal SP.GR. DIPSTX 1.015 LAB L400.3550 5.0 - 8.0 pH UR Normal 6.5 LAB L400.3600 Negative mg/dl High PROT DIPSTX 500 LAB L400.3700 Normal mg/dl Normal UROBILI Normal LAB L400.3750 Negative High NITRITE UR Positive LAB L400.3780 Negative /ul High OCCULT BLOOD-UR 250 LAB L400.3800 Negative /ul High LEUK ESTERASE 500 LAB L400.4050 0-5 /hpf WBC Normal >100 SEEN LAB L400.4100 0-5 /hpf > Normal RBC-UA 100 SEEN LAB L400.4150 0-5 /hpf SQUAM Normal EPI 0-5 SEEN LAB L400.4300 None Seen /hpf 2+ Normal BACTERIA LAB L400.4350 <or=2+ /hpf 0 Normal MUCUS, URINE SEEN Performed By: #### L400.0001 #### [facility] [address] [place], [place], [address] PULMONARY VISIT REPORT Observed: 12/22/2017 Status: F Source: [place] 12:01 PM [facility] REPOSITORY [facility] [address] [place], [place] [address] OFFICE VISIT Date of Service: 12/22/17 MR#: [id number] Acct: [id number] Name: SKYLER PINZON Rep #: [id number] : 1965 Provider: Siria Harp Age/Sex: 52/M Location: [facility] Status: Signed Assessment AND Plan 1. Vocal cord dysfunction J38.3 Plan Refer patient to ENT. Follow-up with Dr. Padilla in 3 months. Orders Referrals: 2. Chest pain on breathing R07.1; R07.81 Plan Unchanged. Referral made to ENT for evaluation for possible/suspected vocal cord dysfunction. Follow-up with Dr. Padilla in 3 months, at which time he will review referral recommendations and continue to develop a plan. Continue nebulizers, have been somewhat helpful. No additional testing at this time. No change in medications. Plan Detail Follow Up 3 Months (DMB) HPI 2 W FU: Chief Complaint: chest pain HPI Comments Details: Patient presents today with complaints of ongoing chest pain. He is accompanied by his sister who does a lot of interpreting for the patient. The patient describes the pain as a tightness that begins bilaterally mid chest and extends all the way up into his throat. The tightness is there most of the day but is made worse with talking, he denies chest pain or tightness with exertion. He also complains of voice hoarseness that has been gradually improving but is still present today in office. Sister states the patient has taken Tylenol occasionally and the patient states that the Tylenol and the nebulizers give minimal relief with use. Patient's sister reports that he independently refilled the nebulizer medication (albuterol), which she feels is a good sign that he did receive some relief with the use of the nebulized medication. Otherwise the patient denies cough, shortness of breath or wheezing. See complete review of systems. He denies any fever, chills, body aches, hemoptysis. Repeat CT of the chest was obtained on December 11, 2017 and was interpreted as showing COPD changes, bibasilar mildly increased pulmonary interstitial thickening. Biapical pleural parenchymal thickening/scarring. Intake Vital Signs12/22/17 Height 6 ft 2 in 12/22/17 Weight: 182 lb Intake Visit Reasons: 2 W FU Chief Complaint: chest pain Parts Administrator Required: No Is patient in pain?: Yes Allergies No Known Allergies Allergy (Verified 12/22/17 11:09) Medications Mycophenolate Mofetil [Cellcept] 500 mg PO BID 07/14/16 [History Confirmed 12/07/17] Lactobacillus Acidophilus [Acidophilus] 1 tab PO BID #60 tab 07/18/17 [Rx Confirmed 12/07/17] Rivaroxaban [Xarelto] 20 mg PO DAILY 08/17/17 [History Confirmed 12/07/17] Guaifenesin/Codeine [Robitussin AC] 10 ml PO Q6H PRN PRN 3 Days #100 ml 08/18/17 [Rx Confirmed 12/07/17] Oxycodone [Oxyir] 5 mg PO Q6H PRN 3 Days #12 tab 08/18/17 [Rx Confirmed 12/07/17] Albuterol Sulfate [Proair Respiclick] 90 mcg IH Q4H PRN PRN 09/10/17 [History Confirmed 12/07/17] Amlodipine [Norvasc] 5 mg PO QHS 09/29/17 [History Confirmed 12/07/17] Benzonatate [Tessalon Perle] 100 mg PO TID PRN PRN 09/29/17 [History Confirmed 12/07/17] Tacrolimus [Astagraf Xl] 1 mg PO BID 09/29/17 [History Confirmed 12/07/17] albuterol sulfate 2.5 mg/3 mL (0.083 %) solution for nebulization 2.5 mg INHALATION Q4H PRN #180 vial 12/15/17 [Rx] PFSH Medical History Right-sided chest pain (Acute) Nonproductive cough (Acute) Bronchitis (Acute) Pulmonary embolism (Chronic) Chest pain (Acute) Pulmonary infiltrate present on computed tomography (Chronic) CKD (chronic kidney disease), stage III (Chronic) Acute UTI (Acute) Kidney transplant recipient (Chronic) Congenital nystagmus (Chronic) Mild MRDD (Chronic) DVT (deep venous thrombosis) (Chronic) Neurogenic bladder disorder (Chronic) Surgical History Renal transplant, status post (Chronic) Social History Smoking Status: Never smoker second hand exposure: No alcohol intake: never substance use type: does not use caffeine: No Review of Systems Const CONSTITUTIONAL: Positive fatigue; negative anorexia, body ache, chills, daytime sleepiness, fever(s), night sweats, oral thrush, stops breathing during sleep, weight loss, sleeping in chair, weight loss, weight gain, frequent colds, seasonal allergies, other, headache(s) or orthopnea EETM Ear Nose Throat Mouth: Positive hearing normal, hoarseness and sore throat; negative hard of hearing, dry mouth in morning, change in vision, itchy eyes, eye pain, swallowing Difficulty, ear pain, nose bleed, headache(s), mouth pain, nasal congestion, nasal discharge, post nasal drip, sinus pain, sinus pressure or other Cardio Cardiovascular: Negative chest pain, chest pain at rest, chest pain with activity, irregular heart rhythm, edema, shortness of breath when lying down, palpitations, murmur or other Resp Respiratory: Positive as per HPI, shortness of breath shortness of breath: Positive lying down, cough cough: Positive non-productive and chest tightness; negative pain with cough, wheezing, chest congestion, pain on inspiration, inhalers, increase use of rescue inhalers, snoring, apnea or other Gastro Gastrointestional: Negative bloody stools, change in appetite, difficulty swallowing, reflux, hematemesis, melena stool, loose stool, constipation or other Genitourinary: Negative blood in urine, nocturia, pain with urination or other Musc Musculoskeletal: Negative body pain, back pain, neck pain or other Skin/Breast Skin/Breast: Negative dry skin, itching, rash, unusual bruising, breast lump or other Neuro Neurological: Negative restless legs, confusion, weakness or other Psych Psychocological: Negative abnormal sleep pattern, anxiety, thoughts of hurting self/others, hopelessness or other Lymph Lymphatic: Negative easy bleeding, easy bruising, swollen lymph nodes or other Exam Const Constitutional: Positive cooperative, in no acute respiratory distress, healthy appearing, well developed, well nourished and good hygiene Head Head: Positive normocephalic and atraumatic; negative cyanosis of lips/distal nose Eyes Eye: Positive clear conjunctiva; negative scleral abnormality Ears Ear: Positive hearing normal; negative hard of hearing Nose Nose: Positive external nose normal; negative epistaxis Mouth Mouth: Positive oral mucosae normal and poor dentition; negative post nasal drip Mallampati Score: I: Mallampati Score Neck Neck: Positive normal visual inspection, full ROM and trachea midline; negative lymphadenopathy, JVD or tender Chest Wall Chest: Positive normal inspection of the chest and symmetric chest movement; negative increased A/P diameter Resp lung sounds: Positive clear to auscultation, good air exchange, normal expiratory time and normal respiratory effort; negative diminished, wheezes, rhonchi, rales, dullness to percussion or wheeze present on forced exhalation Cardio Cardiac: Positive regular rate and regular rhythm; negative murmur GI GI: Positive normal to inspection; negative distended Genitourinary: Positive deferred [facility] Musculoskeletal: Positive steady gait and ROM normal; negative kyphosis or scoliosis Skin Pulmonary Skin Exam: Positive intact; negative rash Pulses Pulse: Yes radial pulses present Extremities Extremities: Yes capillary refill normal, No clubbing Neuro Neurologic: Yes cooperative, Yes understands questions Lymph Lymphatic: No lymphadenopathy Psych Appearance: Positive grossly normal, eye contact and well kempt Mental Status: Positive other (Developmentally delayed, at baseline currently) Mood: Positive anxious mood Affect: Positive anxious affect Coding Level of Care Code Off vis,est,level 3 Diagnoses Vocal cord dysfunction J38.3 Chest pain on breathing R07.1; R07.81 Chest pain type: chest pain on breathing 12/22/17 1201 <Electronically signed by Siria REGAN> Date Siria REGAN Cosigner Signature: Date (if applicable) CC: Mike Bella MD CBC-COMPLETE BLOOD CNT Collected: 12/20/2017 Status: F Source: [place] NO DIFF 7:46 AM [facility] REPOSITORY TYPE CODE TESTS RESULT OUT OF RANGE REFERENCE UNITS LAB L100.1000 4.4-11.0 K/mm3 Normal WBC 8.2 LAB L100.1200 4.6-6.2 M/mm3 Low RBC 4.56 LAB L100.1300 13.0-16.5 g/dl Low HGB 12.6 LAB L100.1400 40-54 % Normal HCT 40.8 LAB L100.1500 80-94 fL Normal MCV 89.5 LAB L100.1600 27.0-32.0 pg Normal MCH 27.6 LAB L100.1700 32-36 g/gl Low MCHC 30.9 LAB L100.1810 11.6-14.6 % Normal RDW CV 14.5 LAB L100.1820 35.1-43.9 fl High RDW SD 47.4 LAB L100.1900 150-450 K/mm3 Normal PLT 291 LAB L100.2000 6.2-12.0 fl Normal MPV 9.8 Performed By: #### L100.0500 #### [facility] [address] [place], [address] RENAL PROFILE Collected: 12/20/2017 Status: F Source: [place] 7:46 AM [facility] REPOSITORY TYPE CODE TESTS RESULT OUT OF RANGE REFERENCE UNITS LAB L501.0100 74-106 mg/dL Normal GLU 90 Result Comment: Please note revised GLUCOSE reference range effective 2017. LAB L501.1000 7-18 mg/dL High BUN 19 LAB L501.1100 0.70-1.30 mg/dL High CREAT,SERUM 1.52 Result Comment: The validity of the calculated GFR AND GFRAA in patients over 70 years has not been determined. Clinical correlation is essential. LAB L501.1110 >60 mL/min Low EST GFR 52 Result Comment: Non- GFR Calc LAB L501.1115 >60 mL/min Normal EST GFR - AA 63 Result Comment: GFR Calc LAB L501.1300 10-20 RATIO Normal BUN/CRE 12.5 LAB L501.1800 3.2-5.0 g/dL Normal ALB 3.4 LAB L501.2200 8.5-10.1 mg/dL Low CA 7.9 LAB L501.2300 2.5-4.9 mg/dL Normal PHOS 2.5 LAB L501.5300 136-145 mmol/L NA Normal 144 LAB L501.5600 3.5-5.1 mmol/L K Normal 3.5 LAB L501.5900 98-107 mmol/L High CL 110 LAB L501.6100 21.0-32.0 mmol/L Normal CO2 21.0 Performed By: #### L500.3600 #### [facility] [address] [place], [place], [id number] TACROLIMUS (PROGRAF) Collected: 12/20/2017 Status: F Source: [place] 7:46 AM [facility] REPOSITORY TYPE CODE TESTS RESULT OUT OF RANGE REFERENCE UNITS LAB L3380.1100 2.0-20.0 ng/mL Normal TACROLIMUS 4.8 Result Comment: Trough (immediately following transplant) 15.0 Trough (steady state, 2 weeks or more after transplant): 3.0 - 8.0 Detection Limit = 1.0 Performed by LC-MS/MS technology. Performed at: - [facility] [id number] Print Binding Worker: Renan Soares MD, Phone: [phone] Performed By: #### L3380.1000 #### [facility] (refer to report for specific site) refer to report for address and phone number CHEST WITHOUT Observed: 12/11/2017 Status: F Source: [place] CONTRAST 6:56 AM [facility] REPOSITORY [facility] Imaging Services [address] [place] [address] Chest without Contrast MR#: [id number] Acct: [id number] Name: SKYLER PINZON Rep #: [id number] : 1965 M 52 From: Claudia Chatman PCP: Mike Bella MD Status: REG CLI Study: Chest without Contrast Date of Exam: 12/11/17 Exam# [id number] Ordering Dr: Fredi Padilla DO STUDY: CT CHEST WITHOUT CONTRAST REASON FOR EXAM: Male, 52 years old. Bilateral upper lung pain, question pleurisy. History of kidney transplantation in 2015. Last voice in August still has not come back. RADIATION DOSAGE (If Supplied By Facility): CTDIvol = ( 15.45 ) mGy, DLP = ( 594.4 ) mGycm TECHNIQUE: Transaxial imaging was performed without the administration of intravenous contrast material. Multiplanar coronal and sagittal images were reformatted. Individualized dose optimization techniques were used for this CT. COMPARISON: CT chest: 09/11/2017 FINDINGS: Motion induced image degradation. There is hyperinflation of the lungs consistent with chronic obstructive lung disease (COPD). There is basilar mild pulmonary interstitial thickening. Biapical significant pleural parenchymal thickening/scarring. There is no demonstrated pleural abnormality. Normal heart and pericardium. There are calcifications of the coronary arteries. There is no significant mediastinal or hilar lymphadenopathy demonstrated. Normal unenhanced pulmonary arteries. Normal aorta arch and descending thoracic aorta. There is demineralization of the thoracic spine. Multilevel mid thoracic vertebral wedging/compression deformity noted with increased thoracic kyphosis. There is also multilevel mid thoracic degenerative endplate spondylosis. There is no demonstrated acute abnormality of the visualized upper abdomen. There is severe bilateral renal atrophy. Fluid-filled patulous distended right renal pelvis. Bilateral multiple renal cysts. CT/Chest without Contrast IMPRESSION: 1. COPD changes. Bibasilar mildly increased pulmonary interstitial thickening. Biapical pleural parenchymal thickening/scarring. 2. Osteopenia. Multiple wedge compression vertebral deformities. Increased thoracic kyphosis. Degenerative thoracic endplate spondylosis. 3. Severe bilateral renal atrophy. Bilateral renal cysts. Right hydronephrosis/hydroureter.. Electronically Signed: Osiris Chatman MD at 10:02 EDT Tel , Service support , CC: Fredi Padilla D.O.; Mike Bella MD Admitted Attorneys: Signed PULMONARY VISIT REPORT Observed: 12/10/2017 Status: F Source: [place] 7:54 AM [facility] REPOSITORY [facility] [address] [place] [address]. [address] [place] [address] OFFICE VISIT Date of Service: 12/09/17 MR#: [id number] Acct: [id number] Name: SKYLER PINZON Rep #: [id number] : 1965 Provider: Fredi Padilla D.O. Age/Sex: 52/M Location: [facility] Status: Signed Assessment AND Plan 1. Shortness of breath R06.02 Plan The patient presents with a prolonged, protracted course of shortness of breath and pleuritic type chest pain, initially beginning multitude of months ago when he was diagnosed with pulmonary emboli. The patient has since been treated multiple times with antibiotics for bronchitis and pneumonia. While he does have access to an albuterol rescue inhaler, given his limited inspiratory effort, I suspect that the metered-dose inhaler would be unlikely to provide any benefit due to his inability to take in a deep breath. Ideally, I would like to obtain baseline pulmonary function testing on this patient. However, at the current time, I do not feel that he would be able to perform the maneuvers associated with obtaining testing. Given that the patient has chronic renal insufficiency and ongoing pleuritic type chest pain, I recommended placing him on a prednisone taper. I am also going to place an order for a nebulizer and associated supplies so that the patient can attempt utilized nebulized albuterol for symptom relief. In addition, I am going to obtain a repeat noncontrasted chest CT to further evaluate for any pleural/parenchymal lung abnormalities. The patient will have short interval follow-up with our nurse practitioner in 2 weeks. Orders Orders: 2. Other pulmonary embolism without acute cor pulmonale, unspecified chronicity I26.99 Plan Continue current oral anticoagulation regimen without interruption. 3. Pleuritic chest pain R07.81 Plan As noted above, the etiology for the patient's pleuritic type chest pain is a bit unclear. He was diagnosed with human Crews pneumo virus in August, but also had a negative chest CT at that time. I would avoid the use of NSAIDs in this patient, given his underlying chronic renal insufficiency. Therefore, he is going to be placed on a prednisone taper and a repeat noncontrasted chest CT is going to be obtained, as noted above. Plan Detail Other Medications New: prednisone 10 mg PO- 4 tabs x 3 days, then 3 tabs x 3 days, then 2 tabs x 3 days, t hen 1 tab x 3 days Follow Up 2 Weeks ([facility]) HPI HPI Comments Details: The patient is a 52-year-old male who presents to the clinic today in referral for evaluation of shortness of breath and in follow-up from a hospitalization in August 2017. If you recall, I evaluated the patient on September 11, 2017 after he was admitted to the hospital with cough and pleuritic type chest pain. This was the patient's fourth admission since July 2017. He was initially admitted in mid July and treated for an acute Enterobacter cystitis. The patient was then readmitted short time later with an acute pulmonary embolism. In mid August, the patient was again admitted with cough and midsternal chest pain. No respiratory infectious workup was ever completed throughout all of the previous hospitalizations. The patient has a chronic nonproductive cough. A CT abdomen/pelvis obtained in July 2017 revealed incidental note of a left lower lobe airspace consolidation and right lower lobe atelectasis. CTA chest completed on July 20, 2017 revealed filling defects within the segmental and subsegmental pulmonary arteries within the right middle lobe consistent with pulmonary emboli. There was evidence of groundglass opacities associated with dependent consolidation within the lower lobes. Respiratory viral panel from August 2017 was positive for human Crews pneumo virus. Although it was recommended that the patient follow-up after his discharge, he never did so. The patient was just reevaluated in the emergency department on December 07 with a fever. Subsequent workup revealed the presence of gram-negative cystitis, for which the patient was placed on antibiotics and discharged home. Today, the patient's sister is present for today's office visit. The patient has had difficulty with phonation due to pain related complaints. Therefore, much of the history is obtained from the patient's sister. The patient has been reporting shortness of breath, chest tightness and pleuritic type chest pain for several months now. He remains compliant with the use of his oral anticoagulation regimen states that he has not missed any doses. Although he is prescribed a pro-air inhaler, he readily admits that he is not utilizing the aforementioned medication. The patient is functionally immunosuppressed due to a history of prior kidney transplant. He does currently reside in a home by himself. Intake Vital Signs12/09/17 Height 6 ft 2 in 12/09/17 Weight: 170 lb Intake Visit Reasons: Shortness of breath Chief Complaint: chest pain Accompanied by: Sister Allergies No Known Allergies Allergy (Verified 12/07/17 12:34) Medications Mycophenolate Mofetil [Cellcept] 500 mg PO BID 07/14/16 [History Confirmed 12/07/17] Amlodipine [Norvasc] 5 mg PO 2100 12/01/16 [History Confirmed 12/07/17] Sulfamethoxazole/Trimethoprim [Sulfamethoxazole-Tmp Ss Tablet] 1 tab PO DAILY 07/13/17 [History Confirmed 12/07/17] Lactobacillus Acidophilus [Acidophilus] 1 tab PO BID #60 tab 07/18/17 [Rx Confirmed 12/07/17] Rivaroxaban [Xarelto] 20 mg PO DAILY 08/17/17 [History Confirmed 12/07/17] Guaifenesin/Codeine [Robitussin AC] 10 ml PO Q6H PRN PRN 3 Days #100 ml 08/18/17 [Rx Confirmed 12/07/17] Oxycodone [Oxyir] 5 mg PO Q6H PRN 3 Days #12 tab 08/18/17 [Rx Confirmed 12/07/17] Albuterol Sulfate [Proair Respiclick] 90 mcg IH Q4H PRN PRN 09/10/17 [History Confirmed 12/07/17] Amlodipine [Norvasc] 5 mg PO QHS 09/29/17 [History Confirmed 12/07/17] Amoxicillin/Potassium Clav [Amox Tr-K Clv 875-125 mg Tab] 1 ea PO BID 09/29/17 [History Confirmed 12/07/17] Benzonatate [Tessalon Perle] 100 mg PO TID PRN PRN 09/29/17 [History Confirmed 12/07/17] Tacrolimus [Astagraf Xl] 1 mg PO BID 09/29/17 [History Confirmed 12/07/17] Ciprofloxacin [Cipro] 500 mg PO BID #14 tab 12/07/17 [Rx] albuterol sulfate 2.5 mg/3 mL (0.083 %) solution for nebulization 2.5 mg INHALATION Q4H PRN #180 ml 12/09/17 [Rx Confirmed 12/09/17] prednisone 10 mg tablet 10 mg PO .COMPLEX #30 tab 12/09/17 [Rx Confirmed 12/09/17] PFSH Medical History Right-sided chest pain (Acute) Nonproductive cough (Acute) Bronchitis (Acute) Pulmonary embolism (Chronic) Chest pain (Acute) Pulmonary infiltrate present on computed tomography (Chronic) CKD (chronic kidney disease), stage III (Chronic) Acute UTI (Acute) Kidney transplant recipient (Chronic) Congenital nystagmus (Chronic) Mild MRDD (Chronic) DVT (deep venous thrombosis) (Chronic) Neurogenic bladder disorder (Chronic) Surgical History Renal transplant, status post (Chronic) Social History Smoking Status: Never smoker second hand exposure: No alcohol intake: never substance use type: does not use caffeine: No Review of Systems Const CONSTITUTIONAL: Positive night sweats and fatigue; negative anorexia, body ache, chills, daytime sleepiness, fever(s), oral thrush, stops breathing during sleep, weight loss, sleeping in chair, weight loss, weight gain, frequent colds, seasonal allergies, other, headache(s) or orthopnea EETM Ear Nose Throat Mouth: Positive hearing normal; negative hard of hearing, hoarseness, dry mouth in morning, change in vision, itchy eyes, eye pain, swallowing Difficulty, ear pain, nose bleed, headache(s), mouth pain, nasal congestion, nasal discharge, post nasal drip, sinus pain, sinus pressure, sore throat or other Cardio Cardiovascular: Positive chest pain; negative chest pain at rest, chest pain with activity, irregular heart rhythm, edema, shortness of breath when lying down, palpitations, murmur or other Resp Respiratory: Positive as per HPI, shortness of breath shortness of breath: Positive with activity and worsening and chest tightness; negative pain with cough, wheezing, chest congestion, cough, pain on inspiration, inhalers, increase use of rescue inhalers, snoring, apnea or other Gastro Gastrointestional: Negative bloody stools, change in appetite, difficulty swallowing, reflux, hematemesis, melena stool, loose stool, constipation or other Genitourinary: Negative blood in urine, nocturia, pain with urination or other Musc Musculoskeletal: Negative body pain, back pain, neck pain or other Skin/Breast Skin/Breast: Negative dry skin, itching, rash, unusual bruising, breast lump or other Neuro Neurological: Negative restless legs, confusion, weakness or other Psych Psychocological: Negative abnormal sleep pattern, anxiety, thoughts of hurting self/others, hopelessness or other Lymph Lymphatic: Negative easy bleeding, easy bruising, swollen lymph nodes or other Exam Const Constitutional: Positive cooperative, in no acute respiratory distress, well developed, well nourished and good hygiene Appears uncomfortable. Head Head: Positive normocephalic and atraumatic; negative cyanosis of lips/distal nose Eyes Eye: Positive clear conjunctiva; negative nystagmus or scleral abnormality Ears Ear: Positive hearing normal and external ears normal; negative hard of hearing Nose Nose: Positive external nose normal; negative epistaxis Mouth Mouth: Positive oral mucosae normal and posterior oropharynx is adequate; negative no lesions or post nasal drip Mallampati Score: II: Mallampati Score Neck Neck: Positive normal visual inspection and trachea midline; negative lymphadenopathy Chest Wall Chest: Positive symmetric chest movement Normal AP diameter. Resp Poor, patient dependent, inspiratory effort with corresponding diminished air movement without appreciable wheezes, rales or rhonchi. Cardio Cardiac: Positive regular rate, regular rhythm, S1 normal and S2 normal; negative rub, gallop or murmur GI GI: Positive normal bowel sounds Soft without distention Genitourinary: Positive deferred Musc Musculoskeletal: Positive steady gait Skin Pulmonary Skin Exam: Positive intact; negative lesion, ulcers, dermal atrophy or rash Pulses Pulse: Yes Pedal pulses present: Extremities Extremities: No clubbing, No cyanosis, No edema Tortuous, dilated peripheral vasculature of upper extremities Neuro Neurologic: Yes no focal neuro deficits, Yes cooperative Limited phonation due to perceived pain. Mild MRDD Lymph Lymphatic: No lymphadenopathy Psych Appearance: Positive grossly normal Mental Status: Positive mental status grossly normal Mood: Positive congruent mood Affect: Positive flat Coding Level of Care Code Off vis,est,level 4 Diagnoses Shortness of breath R06.02 Other pulmonary embolism without acute cor pulmonale, unspecified chronicity I26.99 Acute cor pulmonale presence: without acute cor pulmonale Chronicity: unspecified Pulmonary embolism type: other Pleuritic chest pain R07.81 12/10/17 0754 <Electronically signed by Fredi Padilla DO> Date Fredi Padilla DO Cosigner Signature: Date (if applicable) CC: Mike Bella MD EMERGENCY DEPARTMENT Observed: 12/07/2017 Status: F Source: [place] SUMMARY 3:48 PM [facility] REPOSITORY [facility] Medical Records Department [address] [place] [address] Emergency Department Summary 12/07/17 1542 MR#: [id number] Acct: [id number] Name: SKYLER PINZON Rep #: [id number] : 1965 52 From: Ambrosio Munguia DO PCP: Mike Bella MD Status: REG ER - ER Visit Summary Date of Service: 12/07/17 Chief Complaint: Fever History of Present Illness: The patient is a 52 M who presents with fever that began yesterday. Mother states that the patient has had recurrent fever. Mother states the patient has had a cough and sore throat for the past 6 weeks. Mother states patient has laryngitis and is unable to talk. Patient is chronically on Bactrim and was also started on Zithromax yesterday. Patient has a history of renal transplant and is on rejection medications. Patient states he does have a history of frequent urinary tract infections. Mother states the patient does cath himself regularly. Physical Examination: Vital signs showed a heart rate of 125 a temperature of 100.5. The remaining vital signs are normal. Oral mucosa is pink and moist. Neck is supple. There is no JVD noted. Heart was regular and tachycardic. Lungs are clear and equal bilaterally. Abdomen is soft nontender. Cranial nerves II through XII are intact. There are no focal motor or sensory deficits noted. The remaining physical exam is within normal limits. Test Results: PA and lateral chest x-ray does not show any acute cardiopulmonary process. CBC was normal. Basic metabolic profile showed an elevated BUN of 19 and creatinine of 1.89. This is consistent with prior results. Urinalysis shows evidence of urinary tract infection. Emergency Department Course and Treatment: Urine culture was obtained. Blood cultures were also obtained. Patient was started on Cipro here. Patient was given a prescription for Cipro. Patient was instructed to follow-up with his primary care physician in 3-5 days. Patient and his mother and sister understood and were agreeable with the plan. All questions were answered. Disposition: Discharged home Impression: Urinary tract infection This note was generated with [employer] dictation software. It may contain incorrect words, spelling, and punctuation that were not noted in review of the chart prior to signing ED Disposition - Plan for ED Patient: Disposition: Home or Assisted Living Chief Complaint: Fever Diagnosis: Urinary tract infection associated with catheterization of urinary tract, Acute UTI, Kidney transplant recipient Instructions: ED UTI Pyelonephritis Male Prescriptions: Ciprofloxacin [Cipro] 500 mg PO BID #14 tab Referrals: Mike Bella MD [Primary Care Provider] - What to do if you have Problems For any increased pain, shortness of breath, bleeding, nausea or vomiting, chest pain, or any unexpected problems, contact your Primary Care Provider. Call [facility] ([phone]) or report to the closest Emergency Room. Call 911 if necessary. 12/07/17 1548 <Electronically signed by Ambrosio Munguia DO> Date Ambrosio Munguia DO Cosigner Signature (If Indicated): Date CC: Mike Bella MD Observed: 12/07/2017 Status: F Source: [place] CULTURE, URINE 1:49 PM [facility] REPOSITORY Order Date: 12/07/17 Has pt arrived? Y Urine Culture ORGANISM 1: Elenofyasmani caldwelli [facility] Count >100,000 Hafnia alvei: REACTION Amoxacillin/Clavulanic Acid $ >=32 R Ampicillin $ >=32 R Ampicillin/Sulbactam $ >=32 R Cefazolin $ >=64 R Cefepime $ <=1 S Ceftriaxone $ 16 I Ciprofloxacin $ <=0.25 S Gentamicin $ 8 I Imipenem *NF <=0.25 S Levofloxacin $ <=0.12 S Nitrofurantoin $ <=16 S Piperacillin/Tazobactam $$ 16 S Tobramycin $ <=1 S Trimethoprim/Sulfametho $ >=320 R (NF) indicates non-formulary drug at [facility]. Approval by Infectious Disease Specialist required before non-formulary drugs may be ordered and/or dispensed. Performed By: #### M100.0650 #### [facility]. [place], [place], [address] URINALYSIS, COMPLETE Collected: 12/07/2017 Status: F Source: [place] 1:45 PM [facility] REPOSITORY Order Comment: Order Date: 12/07/17 Has pt arrived? Y How was Urine Obtained? CATHETER SPECIMEN TYPE CODE TESTS RESULT OUT OF RANGE REFERENCE UNITS LAB L400.3000 Yellow COLOR Normal Yellow LAB L400.3050 Clear Normal CLARITY Sl. Cloudy LAB L400.3200 Normal mg/dl Normal GLUCOSE, UR Normal LAB L400.3300 Negative mg/dL Normal BILIRUBIN URINE Negative LAB L400.3400 Negative mg/dl High 5 KETONE UR LAB L400.3465 1.002-1.030 Normal SP.GR. DIPSTX 1.015 LAB L400.3550 5.0 - 8.0 pH UR Normal 6.0 LAB L400.3600 Negative mg/dl High PROT DIPSTX 100 LAB L400.3700 Normal mg/dl Normal UROBILI Normal LAB L400.3750 Negative High NITRITE UR Positive LAB L400.3780 Negative /ul High OCCULT BLOOD-UR 250 LAB L400.3800 Negative /ul High LEUK ESTERASE 500 LAB L400.4050 0-5 /hpf WBC Normal 25-50 SEEN LAB L400.4100 0-5 /hpf Normal RBC-UA 25-50 SEEN LAB L400.4150 0-5 /hpf SQUAM Normal EPI 0-5 SEEN LAB L400.4300 None Seen /hpf 2+ Normal BACTERIA LAB L400.4350 <or=2+ /hpf 0 Normal MUCUS, URINE SEEN Performed By: #### L400.0001 #### [facility] [address] [facility] [place], [address] Observed: 12/07/2017 Status: F Source: [place] CULTURE, BLOOD (WB) 1:35 PM [facility] REPOSITORY BC No growth in 5 days. Performed By: #### M200.1000 #### [facility] [address] [place], [address] Observed: 12/07/2017 Status: F Source: [place] CULTURE, BLOOD (WB) 1:35 PM [facility] REPOSITORY BC No growth in 5 days. Performed By: #### M200.1000 #### [facility] [address] [facility] [place], [address] CBC W/DIFF, AUTOMATED Collected: 12/07/2017 Status: F Source: [place] 1:25 PM [facility] REPOSITORY TYPE CODE TESTS RESULT OUT OF RANGE REFERENCE UNITS LAB L100.1000 4.4-11.0 K/mm3 Normal WBC 10.0 LAB L100.1200 4.6-6.2 M/mm3 Normal RBC 4.62 LAB L100.1300 13.0-16.5 g/dl Normal HGB 13.0 LAB L100.1400 40-54 % Normal HCT 41.2 LAB L100.1500 80-94 fL Normal MCV 89.2 LAB L100.1600 27.0-32.0 pg Normal MCH 28.1 LAB L100.1700 32-36 g/gl Low MCHC 31.6 LAB L100.1810 11.6-14.6 % Normal RDW CV 13.7 LAB L100.1820 35.1-43.9 fl High RDW SD 44.7 LAB L100.1900 150-450 K/mm3 Normal PLT 233 LAB L100.2000 6.2-12.0 fl Normal MPV 10.1 LAB L100.2100 47-70 % High NEUT% 85.9 LAB L100.2200 19-41 % Low LY% 9.6 LAB L100.2300 0-10 % Normal MONO% 4.0 LAB L100.2400 0-5 % Normal EO% 0.1 LAB L100.2500 0-1 % Normal BASO% 0.2 LAB L100.2550 0.0-0.9 % Normal IM GRAN % 0.200 Result Comment: IG% - Immature Granulocytes (promyelocytes, myelocytes and metamyelocytes) > 1% indicates that a LEFT SHIFT is Present. LAB L100.2620 2.0-7.7 X10 3/uL High Absolute Neut 8.5 LAB L100.2720 0.83-4.51 X10 3/ul Normal Absolute Lymph 0.96 Performed By: #### L100.0100 #### [facility] [address] [place], [address] COMPREHENSIVE METABOLIC Collected: 12/07/2017 Status: F Source: [facility] 1:25 PM [facility] REPOSITORY TYPE CODE TESTS RESULT OUT OF RANGE REFERENCE UNITS LAB L501.0100 74-106 mg/dL Normal GLU 104 Result Comment: Fasting Glucose result from 100 to 125 mg/dL suggests IMPAIRED HOMEOSTASIS per A.D.A. criteria. Please note revised GLUCOSE reference range effective 2017. LAB L501.1000 7-18 mg/dL High BUN 19 LAB L501.1100 0.70-1.30 mg/dL High CREAT,SERUM 1.89 Result Comment: The validity of the calculated GFR AND GFRAA in patients over 70 years has not been determined. Clinical correlation is essential. LAB L501.1110 >60 mL/min Low EST GFR 40 Result Comment: Non- GFR Calc LAB L501.1115 >60 mL/min Low EST GFR - AA 49 Result Comment: GFR Calc LAB L501.1255 ml/min Normal Estimated CRCL 54.00 LAB L501.1300 10-20 RATIO Normal BUN/CRE 10.1 LAB L501.1500 6.4-8. g/dL Normal 2 T PROT 7.6 LAB L501.1800 3.2-5. g/dL Normal 0 ALB 3.5 LAB L501.1950 2.2-4. g/dL Normal 2 GLOB 4.1 LAB L501.2000 0.9-2. RATIO Normal 4 A/G 0.9 LAB L501.2200 8.5-10 mg/dL Low .1 CA 8.3 LAB L501.4100 15-37 U/L Normal AST 18 LAB L501.4305 45-117 U/L Normal ALK P 61 LAB L501.4405 16-61 U/L Normal ALT 20 LAB L501.4600 0.20-1 mg/dL Normal .00 T BILI 1.00 LAB L501.5300 136-14 mmol/L Normal 5 NA 139 LAB L501.5600 3.5-5. mmol/L Normal 1 K 4.1 LAB L501.5900 98-107 mmol/L High CL 108 LAB L501.6100 21.0-3 mmol/L Normal 2.0 CO2 24.0 LAB L501.6200 5-15 Normal GAP 7 Performed By: #### L500.4050 #### [facility] [address] [place], [address] LACTIC ACID Collected: 12/07/2017 Status: F Source: [place] 1:25 PM [facility] REPOSITORY Order Comment: Yes/No query for Sepsis Lactate Rule Y TYPE CODE TESTS RESULT OUT OF RANGE REFERENCE UNITS LAB L503.6005 0.4-2.0 mmol/L Normal LACTIC ACID 1.0 Performed By: #### L503.6005 #### [facility] [address] [place], [address] CHEST PA AND LATERAL Observed: 12/07/2017 Status: F Source: [place] 1:10 PM [facility] REPOSITORY [facility] Imaging Services [address] [place] [address] Chest PA and Lateral MR#: [id number] Acct: [id number] Name: SKYLER PINZON Rep #: [id number] : 1965 M 52 From: López Wong MD PCP: Mike Bella MD Status: REG ER Study: Chest PA and Lateral Date of Exam: 12/07/17 Exam# [id number] Ordering Dr: Ambrosio Munguia DO STUDY: X-RAY CHEST REASON FOR EXAM: Male, 52 years old. Fever and cough. TECHNIQUE: Frontal and lateral views of the chest. COMPARISON: 10/20/2017. FINDINGS: The lungs are hyperexpanded. There are coarsened interstitial markings suggestive of mild chronic fibrosis. No gross focal infiltrates. No gross effusions. Normal size heart. Normal mediastinum and alton. Normal visualized pulmonary arteries. Normal visualized aortic arch and descending thoracic aorta. There are diffuse degenerative changes of the visualized thoracic spine. Normal visualized ribs, clavicles, and shoulders. There is no demonstrated abnormality of the visualized soft tissue structures of the upper abdomen. RAD/Chest PA and Lateral IMPRESSION: There are findings consistent with COPD. There is no evidence of acute chest disease. Electronically Signed: López Wong MD at 13:56 EDT , Service support , CC: Ambrosio Munguia DO; Mike Bella MD Admitted Attorneys: Signed ESTABLISHED VISIT Observed: 11/23/2017 Status: UNK Source: [facility] (NEPHROLOGY) 4:49 PM [facility]OSPITALS REPOSITORY Chief Complaint kidney transplant follow up History of Present Illness 52 yo M with h/o ESRD on HD since 2012 until kidney transplant from donor in 03/2016. He presented today for follow up Last seen approx 4 mo ago In the interval, was dx with PE on xarelto now Treated on August 2017 with macrobid for UTI with enterococcus Here today w/ sister Last cr in October 2017 was 1.6 mg/dL which is about his baseline Has been struggling w/ recurrent PNA/bronchitis-- seeing pulmonary (Dr Padilla) at discretion of his PCP- also reports prolonged cough-- per pt, has had outpatient CT scan (? [place]). + hoarseness Has had multiple rounds of antibiotics Now currently on throat spray only Reports that urine looks dark, but otherwise, no symptoms He reports beign on 2 mg bid of tacro, but by chart on 1 mg bid, last tacro level one week ago was at goal of 7.3. Review of Systems Constitutional: not feeling poorly and not feeling tired. Eyes: no blurred vision. ENT: no hearing loss. Cardiovascular: no chest pain and no lower extremity edema. Respiratory: chronic cough, wheezing that is consistent with asthma and shortness of breath during exertion. Gastrointestinal: no diarrhea and no constipation. Genitourinary: no urinary frequency and no dysuria. Musculoskeletal: no arthralgias and no myalgias. Active Problems Chronic kidney disease, stage 3 (585.3) (N18.3) DVT (deep venous thrombosis) (453.40) (I82.409) High risk medication use (V58.69) (Z79.899) Hypertension (401.9) (I10) Immunosuppression (279.9) (D89.9) Kidney replaced by transplant (V42.0) (Z94.0) Pre-transplant evaluation for ESRD (end stage renal disease) (V72.83) (Z01.818) Recurrent UTI (urinary tract infection) (599.0) (N39.0) Past Medical History History of Atony, bladder (596.4) (N31.2) History of End stage renal disease (585.6) (N18.6) Surgical History History of Arteriovenous Surgery Creation Of A-V Fistula Family History Family history of osteoporosis (V17.81) (Z82.62) Social History Never smoker Allergies No Known Allergies Recorded By: David Rasmussen; 08/08/2013 2:56:40 PM Current Meds AmLODIPine Besylate 5 MG Oral Tablet; Take one by mouth at bedtime; Therapy: 13Aug2016 to (Evaluate:20Jun2018) Requested for: 46Hdp3615; Last Rx:[id number] Ordered Rx By: Sara Rao; Dispense: 30 Days ; #:30 TAB; Refill: 11;For: Hypertension; ADRIAN = N; Verified Transmission to [facility] [address] [place], [place]; Last Updated By: System, SureScripts; 06/25/2017 4:52:58 PM Mycophenolate Mofetil 250 MG Oral Capsule; TAKE 2 CAPSULE Twice daily Requested for: 31May2017; Last Rx:07May2017 Ordered Rx By: Isac Thao; Dispense: 90 Days ; #:360 Capsule; Refill: 3;For: Immunosuppression, Kidney replaced by transplant; ADRIAN = N; Verified Transmission to [facility] [address] [place] [address] Tacrolimus 1 MG Oral Capsule; TAKE 1 CAPSULE BY MOUTH TWICE DAILY; Therapy: 29Oct2016 to (Last Rx:29Mar2017) Requested for: 29Mar2017; Status: ACTIVE - Transmit to Pharmacy - Awaiting Verification Ordered Rx By: Sara Rao; Dispense: 0 Days ; #:60 Capsule; Refill: 5;For: Immunosuppression, Kidney replaced by transplant; ADRIAN = N; Sent To: [facility][id number] Sulfamethoxazole-Trimethoprim 400-80 MG Oral Tablet; TAKE 1 TABLET DAILY Recorded Dispense: 30 Days ; #:30 Tablet; Refill: 11;For: Kidney replaced by transplant, Recurrent UTI (urinary tract infection); ADRIAN = N; Record; Last Updated By: Stephanie Torres; 07/06/2017 9:10:37 AM Vitals Vital Signs Recorded: 97Izo4886 10:32AM Wfccgundwlq54.9 F, Oral Heart Ndwc591 Sehlqqfh563 Klbxyqvwz47 Height6 ft 1 in Auethk917 lb 3.2 oz BMI Sfqxlwwypz17.91 BSA Calculated2.06 O2 Juggntcqtu69, RA Physical Exam Awake, alert, no distress No oral lesions Heart reg, no mrg Lungs clear bilaterally Abd soft and NT Ext warm, dry, no LE edema bilaterally Results/Data reviewed in OTTR Last cr 1.6 mg/dL Diagnoses/Problems Kidney replaced by transplant (V42.0) (Z94.0) Immunosuppression (279.9) (D89.9) Hypertension (401.9) (I10) Provider Impressions Pleasant 52 yo M with 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 Overall, his allograft function is stable on tacrolimus with at goal levels and MMF His office BP is borderline high, but reports better control at home- on norvasc 5 mg monotherapy, he will monitor and call us if high He will see a pulmonary doctor which I agree with given protracted symtpoms, I emphasized to sister that this is a necessary appointment He will continue to have transplant labs monthly and return here in 4-5 months for follow up visit Patient Discussion/Summary Your last creatinine in October 2017 looked stable Your blood pressure in office was a touch high- please track at home and call us if the top number stays above 150 consistently Continue your current transplant medications Obtain your transplant labs every 1 month Return here in 5 months for follow up with DR. RAO End of Encounter Meds AmLODIPine Besylate 5 MG Oral Tablet; Take one by mouth at bedtime; Therapy: 13Aug2016 to (Evaluate:20Jun2018) Requested for: 14Zzq3897; Last Rx:[id number] Ordered Mycophenolate Mofetil 250 MG Oral Capsule; TAKE 2 CAPSULE Twice daily Requested for: 31May2017; Last Rx:07May2017 Ordered Sulfamethoxazole-Trimethoprim 400-80 MG Oral Tablet; TAKE 1 TABLET DAILY Recorded Tacrolimus 1 MG Oral Capsule; TAKE 1 CAPSULE BY MOUTH TWICE DAILY; Therapy: 29Oct2016 to (Last Rx:29Mar2017) Requested for: 29Mar2017; Status: ACTIVE - Transmit to Pharmacy - Awaiting Verification Ordered Signatures Electronically signed by : Valery Perkins MD; Nov 23 2017 4:49PM EST (Author) CBC-COMPLETE BLOOD CNT Collected: 10/21/2017 Status: F Source: [place] NO DIFF 7:58 AM [facility] REPOSITORY TYPE CODE TESTS RESULT OUT OF RANGE REFERENCE UNITS LAB L100.1000 4.4-11.0 K/mm3 Normal WBC 7.2 LAB L100.1200 4.6-6.2 M/mm3 Normal RBC 4.78 LAB L100.1300 13.0-16.5 g/dl Normal HGB 13.8 LAB L100.1400 40-54 % Normal HCT 43.3 LAB L100.1500 80-94 fL Normal MCV 90.6 LAB L100.1600 27.0-32.0 pg Normal MCH 28.9 LAB L100.1700 32-36 g/gl Low MCHC 31.9 LAB L100.1810 11.6-14.6 % Normal RDW CV 14.3 LAB L100.1820 35.1-43.9 fl High RDW SD 47.1 LAB L100.1900 150-450 K/mm3 Normal PLT 186 LAB L100.2000 6.2-12.0 fl Normal MPV 10.0 Performed By: #### L100.0500 #### [facility] [address] [place], [place], [id number] RENAL PROFILE Collected: 10/21/2017 Status: F Source: [place] 7:58 AM [facility] REPOSITORY TYPE CODE TESTS RESULT OUT OF RANGE REFERENCE UNITS LAB L501.0100 74-106 mg/dL Normal GLU 90 Result Comment: Please note revised GLUCOSE reference range effective 2017. LAB L501.1000 7-18 mg/dL High BUN 27 LAB L501.1100 0.70-1.30 mg/dL High CREAT,SERUM 1.65 Result Comment: The validity of the calculated GFR AND GFRAA in patients over 70 years has not been determined. Clinical correlation is essential. LAB L501.1110 >60 mL/min Low EST GFR 47 Result Comment: Non- GFR Calc LAB L501.1115 >60 mL/min Low EST GFR - AA 57 Result Comment: GFR Calc LAB L501.1300 10-20 RATIO Normal BUN/CRE 16.4 LAB L501.1800 3.2-5.0 g/dL Normal ALB 3.9 LAB L501.2200 8.5-10.1 mg/dL CA Normal 8.5 LAB L501.2300 2.5-4.9 mg/dL Normal PHOS 3.1 LAB L501.5300 136-145 mmol/L NA Normal 142 LAB L501.5600 3.5-5.1 mmol/L K Normal 4.1 LAB L501.5900 98-107 mmol/L High CL 109 LAB L501.6100 21.0-32.0 mmol/L Normal CO2 25.0 Performed By: #### L500.3600 #### [facility] [address] [place], [place], [address] TACROLIMUS (PROGRAF) Collected: 10/21/2017 Status: F Source: [place] 7:58 AM [facility] REPOSITORY TYPE CODE TESTS RESULT OUT OF RANGE REFERENCE UNITS LAB L3380.1100 2.0-20.0 ng/mL Normal TACROLIMUS 6.4 Result Comment: Trough (immediately following transplant) 15.0 Trough (steady state, 2 weeks or more after transplant): 3.0 - 8.0 Detection Limit = 1.0 Performed by LC-MS/MS technology. Performed at: [facility] [id number] Print Binding Worker: Renan Soares MD, Phone: [phone] Performed By: #### L3380.1000 #### [facility] (refer to report for specific site) refer to report for address and phone number CHEST PA AND LATERAL Observed: 10/20/2017 Status: F Source: [place] 11:14 AM [facility] REPOSITORY [facility] Imaging Services [address] [place] [address] Chest PA and Lateral MR#: [id number] Acct: [id number] Name: SKYLER PINZON Rep #: [id number] : 1965 M 52 From: Renato Lawson DO PCP: Mike Bella MD Status: REG CLI Study: Chest PA and Lateral Date of Exam: 10/20/17 Exam# [id number] Ordering Dr: Mike Bella MD STUDY: X-RAY CHEST REASON FOR EXAM: Male, 52 years old. Cough TECHNIQUE: Frontal and lateral views COMPARISON: September 29, 2017 FINDINGS: The lungs are clear and expanded. There is no demonstrated pleural abnormality. Normal size heart. Normal mediastinum and alton. Normal visualized pulmonary arteries. Normal visualized aortic arch and descending thoracic aorta. Degenerative changes of the thoracic spine. Mild wedge compression of several mid thoracic vertebral segments. Normal visualized ribs, clavicles, and shoulders. There is no demonstrated abnormality of the visualized soft tissue structures of the upper abdomen. RAD/Chest PA and Lateral IMPRESSION: Normal x-ray examination of the chest. Electronically Signed: Renato Lawson DO at 18:13 EDT Tel [phone], Service support , CC: Mike Bella MD Admitted Attorneys: Signed 12 LEAD ELECTROCARDIOGRAM Observed: 10/18/2017 Status: F Source: [place] 8:37 AM [facility] Cardiovascular Services [address] [place] [address] 12 Lead EKG 09/29/17 0006 MR#: [id number] Acct: [id number] Name: SKYLER PINZON Rep #: [id number] : 1965 52 From: Dylan Reid MD Attending Dr: Status: DEP ER Ordering Dr: Liam Pelayo MD Date: 09/28/17 Location: ED Sex: M C Admitted: Test Reason : SOB Blood Pressure : / mmHG Vent. Rate : 098 BPM Atrial Rate : 098 BPM P-R Int : 124 ms QRS Dur : 080 ms QT Int : 362 ms P-R-T Axes : 048 006 053 degrees QTc Int : 462 ms Normal sinus rhythm Normal ECG Confirmed by DYLAN REID ([id number]), associate entertainment editor IRAM CONKLIN ([id number]) on 10/11/2017 5:50:29 PM Referred By: SHAWANDA Confirmed By:DYLAN REID 10/11/17 175 Date Dylan Reid MD CC: Liam Pelayo MD; Mike Bella MD Signed EMERGENCY DEPARTMENT Observed: 09/29/2017 Status: F Source: [place] SUMMARY 2:03 AM [facility] Medical Records Department [address] [place] [address] Emergency Department Summary 09/29/17 0201 MR#: [id number] Acct: [id number] Name: SKYLER PINZON Rep #: [id number] : 1965 52 From: Liam Pelayo MD PCP: Mike Bella MD Status: REG ER - ER Visit Summary Date of Service: 09/29/17 Chief Complaint: Cough History of Present Illness: The patient is a 52 M who presents with a cough. He has had a chronic cough for about 2 months. He has had a couple of admissions. There was questionable pneumonia. Most recently he was diagnosed with a viral bronchitis. He had a x-ray last week. He has been on several rounds of antibiotics. He is currently on Augmentin. He states that he is having worsening chest pain only from coughing. He denies feeling short of breath. No fevers nausea vomiting or diarrhea. Physical Examination: Initial heart rate 113, normal on recheck. Vitals otherwise unremarkable Mucous membranes Heart regular rhythm tachycardia Lungs are clear Anterior chest wall tenderness Alert Test Results: EKG shows sinus rhythm at a rate of 98. Chest x-ray shows hyperinflation no acute disease. Laboratory studies notable for creatinine 1.66 otherwise essentially unremarkable. Emergency Department Course and Treatment: Patient was given morphine here for pain. He had improvement of symptoms. He is resting comfortably on reevaluation. I explained to family that there is no indication for admission at this time and to continue current outpatient treatment. They are comfortable with this plan and the patient was discharged. He will follow-up as an outpatient. Treatment Plan: [] Disposition: Discharge Impression: Chronic cough This note was generated with [employer] dictation software. It may contain incorrect words, spelling, and punctuation that were not noted in review of the chart prior to signing ED Disposition - Plan for ED Patient: Chief Complaint: Shortness of Breath Referrals: Mike Bella MD [Primary Care Provider] - What to do if you have Problems For any increased pain, shortness of breath, bleeding, nausea or vomiting, chest pain, or any unexpected problems, contact your Primary Care Provider. Call [facility] ([phone]) or report to the closest Emergency Room. Call 911 if necessary. 09/29/17 0203 <Electronically signed by Liam Pelayo MD> Date Liam Pelayo MD Cosigner Signature (If Indicated): Date CC: Mike Bella MD DISCHARGE INSTRUCTION Observed: 09/29/2017 Status: F Source: [place] 2:03 AM [facility] REPOSITORY [facility] Medical Records Department [address] [place] [address] Discharge Instruction 09/29/17202 MR#: [id number] Acct: [id number] Name: SKYLER PINZON Rep #: [id number] : 1965 52 From: Liam Pelayo MD PCP: Mike Bella MD Status: REG ER ED Disposition - Plan for ED Patient: Chief Complaint: Shortness of Breath Instructions: ED Cough Chronic Cause Unkn Referrals: Mike Bella MD [Primary Care Provider] - What to do if you have Problems For any increased pain, shortness of breath, bleeding, nausea or vomiting, chest pain, or any unexpected problems, contact your Primary Care Provider. Call [facility] ([phone]) or report to the closest Emergency Room. Call 911 if necessary. 09/29/17202 <Electronically signed by Liam Pelayo MD> Date Liam Pelayo MD Cosigner Signature (If Indicated): Date CC: Mike Bella MD CBC W/DIFF, AUTOMATED Collected: 09/29/2017 Status: F Source: [place] 12:10 AM [facility] REPOSITORY TYPE CODE TESTS RESULT OUT OF RANGE REFERENCE UNITS LAB L100.1000 4.4-11.0 K/mm3 Normal WBC 5.2 LAB L100.1200 4.6-6.2 M/mm3 Low RBC 4.37 LAB L100.1300 13.0-16.5 g/dl Low HGB 12.5 LAB L100.1400 40-54 % Low HCT 39.3 LAB L100.1500 80-94 fL Normal MCV 89.9 LAB L100.1600 27.0-32.0 pg Normal MCH 28.6 LAB L100.1700 32-36 g/gl Low MCHC 31.8 LAB L100.1810 11.6-14.6 % Normal RDW CV 14.5 LAB L100.1820 35.1-43.9 fl High RDW SD 47.5 LAB L100.1900 150-450 K/mm3 Normal PLT 187 LAB L100.2000 6.2-12.0 fl Normal MPV 10.5 LAB L100.2100 47-70 % Normal NEUT% 60.9 LAB L100.2200 19-41 % Normal LY% 19.2 LAB L100.2300 0-10 % High MONO% 18.3 LAB L100.2400 0-5 % Normal EO% 1.0 LAB L100.2500 0-1 % Normal BASO% 0.4 LAB L100.2550 0.0-0.9 % Normal IM GRAN % 0.200 Result Comment: IG% - Immature Granulocytes (promyelocytes, myelocytes and metamyelocytes) > 1% indicates that a LEFT SHIFT is Present. LAB L100.2620 2.0-7.7 X10 3/uL Normal Absolute Neut 3.2 LAB L100.2720 0.83-4.51 X10 3/ul Normal Absolute Lymph 1.00 Performed By: #### L100.0100 #### [facility] [address] [place], [place], [address] BASIC METABOLIC Collected: 09/29/2017 Status: F Source: [place] PROFILE (BMP) 12:10 AM [facility] REPOSITORY TYPE CODE TESTS RESULT OUT OF RANGE REFERENCE UNITS LAB L501.0100 74-106 mg/dL Normal GLU 96 Result Comment: Please note revised GLUCOSE reference range effective 2017. LAB L501.1000 7-18 mg/dL Normal BUN 16 LAB L501.1100 0.70-1.30 mg/dL High CREAT,SERUM 1.66 Result Comment: The validity of the calculated GFR AND GFRAA in patients over 70 years has not been determined. Clinical correlation is essential. LAB L501.1110 >60 mL/min Low EST GFR 47 Result Comment: Non- GFR Calc LAB L501.1115 >60 mL/min Low EST GFR - AA 57 Result Comment: GFR Calc LAB L501.1255 ml/min Normal Estimated CRCL 60.17 LAB L501.1300 10-20 RATIO Low BUN/CRE 9.6 LAB L501.2200 8.5-10 mg/dL Low .1 CA 7.9 LAB L501.5300 136-14 mmol/L Normal 5 NA 143 LAB L501.5600 3.5-5. mmol/L Normal 1 K 4.2 LAB L501.5900 98-107 mmol/L High CL 114 LAB L501.6100 21.0-3 mmol/L Normal 2.0 CO2 21.0 LAB L501.6200 5-15 Normal GAP 8 Performed By: #### L500.2500, L501.4010 #### [facility] [address] [place], [address] TROPONIN-I Collected: 09/29/2017 Status: F Source: [place] 12:10 AM [facility] REPOSITORY TYPE CODE TESTS RESULT OUT OF RANGE REFERENCE UNITS LAB L501.4010 <0.045 ng/mL Normal < 0.015 TROPONIN-I Result Comment: TROPONIN-I EXPECTED VALUES <0.045 Negative 0.045 - 0.590 Consistent with Cardiac Damage > OR = 0.600 Critical Value Not every elevated troponin is indicative of TX. These values should be used with clinical judgement in examining the patient's clinical picture for diagnosis. To establish a diagnosis of TX versus myocardial injury, there must be a demonstrated rise and/or fall in the troponin values, in addition to ischemic symptoms, EKG changes, new regional wall motion abnormality, and/or angiographical evidence. PLEASE NOTE: REFERENCE RANGES EDITED 17 Performed By: #### L500.2500, L501.4010 #### [facility] [address] [place], [address] CHEST PA AND LATERAL Observed: 09/28/2017 Status: F Source: [place] 11:53 PM [facility] REPOSITORY [facility] Imaging Services [address] [place] [address] Chest PA and Lateral MR#: [id number] Acct: [id number] Name: SKYLER PINZON Rep #: [id number] : 1965 M 52 From: Renan Marin MD PCP: Mike Bella MD Status: REG ER Study: Chest PA and Lateral Date of Exam: 09/29/17 Exam# [id number] Ordering Dr: Liam Pelayo MD STUDY: X-RAY CHEST REASON FOR EXAM: Male, 52 years old. Cough TECHNIQUE: Frontal and lateral views of the chest. COMPARISON: 09/23/2017 FINDINGS: Pulmonary hyperinflation without acute alveolar disease. There is no demonstrated pleural abnormality. Normal size heart. Normal mediastinum and alton. Normal visualized pulmonary arteries. Normal visualized aortic arch and descending thoracic aorta. There are diffuse degenerative changes of the visualized thoracic spine. Normal visualized ribs, clavicles, and shoulders. There is no demonstrated abnormality of the visualized soft tissue structures of the upper abdomen. RAD/Chest PA and Lateral IMPRESSION: Pulmonary hyperinflation without acute alveolar disease. Electronically Signed: Renan Marin MD at 1:38 EDT Tel , Service support , CC: Liam Pelayo MD; Mike Bella MD Admitted Attorneys: Signed CHEST PA AND LATERAL Observed: 09/23/2017 Status: F Source: [place] 3:51 PM [facility] REPOSITORY [facility] Imaging Services [address] [place] [address] Chest PA and Lateral MR#: [id number] Acct: [id number] Name: SKYLER PINZON Rep #: [id number] : 1965 M 52 From: Hans Wong MD PCP: Mike Bella MD Status: REG CLI Study: Chest PA and Lateral Date of Exam: 09/23/17 Exam# [id number] Ordering Dr: Mike Bella MD STUDY: X-RAY CHEST REASON FOR EXAM: Male, 52 years old. Cough TECHNIQUE: Frontal and lateral view of the chest. COMPARISON: September 10, 2017 FINDINGS: The lungs are clear and expanded. There is no demonstrated pleural abnormality. Normal size heart. Normal mediastinum and alton. Normal visualized pulmonary arteries. Normal visualized aortic arch and descending thoracic aorta. There are diffuse degenerative changes of the visualized thoracic spine. Normal visualized ribs, clavicles, and shoulders. There is no demonstrated abnormality of the visualized soft tissue structures of the upper abdomen. RAD/Chest PA and Lateral IMPRESSION: There are no acute findings in the chest. Electronically Signed: Hans Wong MD at 16:29 EDT , Service support , CC: Mike Bella MD Admitted Attorneys: Signed CBC-COMPLETE BLOOD CNT Collected: 09/20/2017 Status: F Source: [place] NO DIFF 8:01 [facility] REPOSITORY TYPE CODE TESTS RESULT OUT OF RANGE REFERENCE UNITS LAB L100.1000 4.4-11.0 K/mm3 Normal WBC 8.4 LAB L100.1200 4.6-6.2 M/mm3 Normal RBC 4.68 LAB L100.1300 13.0-16.5 g/dl Normal HGB 13.7 LAB L100.1400 40-54 % Normal HCT 42.0 LAB L100.1500 80-94 fL Normal MCV 89.7 LAB L100.1600 27.0-32.0 pg Normal MCH 29.3 LAB L100.1700 32-36 g/gl Normal MCHC 32.6 LAB L100.1810 11.6-14.6 % Normal RDW CV 14.6 LAB L100.1820 35.1-43.9 fl High RDW SD 47.2 LAB L100.1900 150-450 K/mm3 Normal PLT 201 LAB L100.2000 6.2-12.0 fl Normal MPV 10.6 Performed By: #### L100.0500 #### [facility] [address] [place], [address] RENAL PROFILE Collected: 09/20/2017 Status: F Source: [place] 8:01 AM [facility] REPOSITORY TYPE CODE TESTS RESULT OUT OF RANGE REFERENCE UNITS LAB L501.0100 74-106 mg/dL Normal GLU 93 Result Comment: Please note revised GLUCOSE reference range effective 2017. LAB L501.1000 7-18 mg/dL Normal BUN 18 LAB L501.1100 0.70-1.30 mg/dL High CREAT,SERUM 1.60 Result Comment: The validity of the calculated GFR AND GFRAA in patients over 70 years has not been determined. Clinical correlation is essential. LAB L501.1110 >60 mL/min Low EST GFR 49 Result Comment: Non- GFR Calc LAB L501.1115 >60 mL/min Low EST GFR - AA 59 Result Comment: GFR Calc LAB L501.1300 10-20 RATIO Normal BUN/CRE 11.2 LAB L501.1800 3.2-5.0 g/dL Normal ALB 3.9 LAB L501.2200 8.5-10.1 mg/dL Low CA 8.0 LAB L501.2300 2.5-4.9 mg/dL Normal PHOS 2.9 LAB L501.5300 136-145 mmol/L NA Normal 144 LAB L501.5600 3.5-5.1 mmol/L K Normal 3.7 LAB L501.5900 98-107 mmol/L High CL 110 LAB L501.6100 21.0-32.0 mmol/L Normal CO2 25.0 Performed By: #### L500.3600 #### [facility] [address] [place], [address] TACROLIMUS (PROGRAF) Collected: 09/20/2017 Status: F Source: [place] 8:01 AM [facility] REPOSITORY TYPE CODE TESTS RESULT OUT OF RANGE REFERENCE UNITS LAB L3380.1100 2.0-20.0 ng/mL Normal TACROLIMUS 9.3 Result Comment: Trough (immediately following transplant) 15.0 Trough (steady state, 2 weeks or more after transplant): 3.0 - 8.0 Detection Limit = 1.0 Performed by LC-MS/MS technology. Performed at: [address] [id number] Print Binding Worker: Renan Soares MD, Phone: [phone] Performed By: #### L3380.1000 #### [facility] (refer to report for specific site) refer to report for address and phone number 12 LEAD ELECTROCARDIOGRAM Observed: 09/14/2017 Status: F Source: [place] 1:32 PM [facility] Cardiovascular Services [address] [place] [address] 12 Lead EKG 09/10/17 2308 MR#: [id number] Acct: [id number] Name: SKYLER PINZON Rep #: [id number] : 1965 52 From: Rolf Mon MD Attending Dr: Teresa Thrasher Status: DIS IN Ordering Dr: Vania Sullivan MD Date: 09/10/17 [place]: [facility] [place]: M C Admitted: 09/11/17 Test Reason : Blood Pressure : / mmHG Vent. Rate : 098 BPM Atrial Rate : 098 BPM P-R Int : 128 ms QRS Dur : 084 ms QT Int : 362 ms P-R-T Axes : 042 002 050 degrees QTc Int : 462 ms Normal sinus rhythm Normal ECG Confirmed by ROLF MON MD ([id number]), associate entertainment editor IRAM CONKLIN ([id number]) on 09/14/2017 1:32:09 PM Referred By: Ha Lyle Confirmed By:ROLF MON MD 09/14/17 1332 Date Rolf Mon MD CC: Teresa Thrasher; Vania Sullivan MD; Mike Bella MD Signed CONSULTATION Observed: 09/12/2017 Status: F Source: [place] 6:34 AM [facility] Medical Records Department [address] [place] [address] Consultation 09/11/17 0603 MR#: [id number] Acct: [id number] Name: SKYLER PINZON Rep #: [id number] : 1965 52 From: Fredi Padilla DO PCP: Mike Bella MD Status: DIS IN Y Location: MS3 AF299-3 Reason for Consult Date of Consultation: 09/11/17 Reason for Consultation: CT/CXR chronic changes, ongoing pulm sxs x 1-1.5 month, ? bronchitis/PNA History of Present Illness: The patient is a 52-year-old male, with a history as outlined below, who presented to the emergency department on September 11 with cough and pleuritic type chest pain. This is now the patient's forth admission since mid July 2017. He was initially admitted in mid July and treated for an acute Enterobacter cystitis. The patient was then admitted short time later with acute pulmonary embolism. In mid August, the patient was admitted with cough and midsternal chest pain. No respiratory infectious workup was ever completed throughout these hospital admissions. The patient reports the continued presence of a dry, nonproductive cough. He reports a great deal of pain originating in the area between his rib cage and stomach. He states that he feels as if he has torn a lot of muscles. A CT abdomen/pelvis that was obtained in July 2017 did reveal incidental note of a left lower lobe airspace consolidation and right lower lobe atelectasis. CTA chest completed on July 20, 2017 revealed filling defects within the segmental and subsegmental pulmonary arteries within the right middle lobe consistent with pulmonary emboli. There was evidence of groundglass opacities associated with dependent consolidation within the lower lobes. On presentation to the emergency department, the patient was noted to be afebrile and hemodynamically stable. He was maintaining appropriate oxygen saturations on room air. Laboratory evaluation revealed no evidence of a leukocytosis. Creatinine was elevated 1.67. Plain film chest x-ray was reported to reveal a continued density in the right medial lung base. However, the patient's lung trevizo appear grossly clear to me on review of the film. Past Medical History Past Medical History (Chronic Problems): Chronic Problems Pulmonary embolism (Chronic) Pulmonary infiltrate present on computed tomography (Chronic) CKD (chronic kidney disease), stage III (Chronic) Acute UTI (Chronic) Kidney transplant recipient (Chronic) Congenital nystagmus (Chronic) Mild MRDD (Chronic) DVT (deep venous thrombosis) (Chronic) Renal transplant, status post (Chronic) Neurogenic bladder disorder (Chronic) managed with cic Allergies No Known Allergies Allergy (Verified 09/10/17 21:48) Home Medications: Ambulatory Orders Medication Instructions Recorded Mycophenolate Mofetil [Cellcept] 500 mg PO BID 07/14/16 Surgical History: - - Right kidney transplant [facility], dialysis access prior. Right upper extremity fistula Psychiatric History: No pertinent psych hx, - - MRDD Lives: Alone Smoking Status: Never smoker Tobacco Use: Non-smoker Alcohol: None Drugs: None - *Family History Maternal History Items: Hypertension Paternal History Items: Diabetes Review of Systems Constitutional: Denies: Chills, Fever Eyes: Denies: Blurred vision, Double vision HEENT: Denies: Head Aches, Sinus Congestion, Sinus Drainage Cardiovascular: Reports: Chest Pain Respiratory: Reports: Cough, Pleuritic Pain, Shortness of Breath. Denies: Sputum production Gastrointestinal: Denies: Abdominal Pain, Nausea, Vomiting Genitourinary: Denies: Dysuria Musculoskeletal: Denies: Joint Pain, Joint Tenderness Skin: Denies: Rash, Wounds Neurological: Denies: Numbness, Tingling, Focal weakness Psychiatric: Denies: Anxiety, Depression, Homicidal Ideations, Suicidal Ideations Hematologic/ Lymphatic: Denies: Easy Bruising, Easy Bleeding Objective: The patient's most recent lab work, culture data and imaging studies have all been personally reviewed. - Physical Exam General: Alert, Cooperative, No apparent distress HEENT: Atraumatic, PERRLA, Normocephalic Oral: No Gingival or Mucosal Lesions/ Ulcerations, Dry Mucosa Neck: Supple, No Nodes, Trachea Midline Lungs: No rhonchi, No wheeze, No rales, Diminished, - - Poor patient dependent inspiratory effort Cardiovascular: Normal S1, Normal S2, No murmurs, Tachycardic Abdomen: Bowel Sounds Present, Soft, Non Tender Extremities: No clubbing, No cyanosis, No edema Skin: No breakdown Musculoskeletal: No Muscle Wasting Lymphatic: No Cervical, Supraclavicular, or Inguinal Adenopathy Neurological: Neuro grossly intact Psych/Mental Status: Flat Affect Vital Signs Temp Pulse Resp BP Pulse Ox 99.0 F 96 22 H 145/78 H 95 09/11/17 01:18 09/11/17 03:05 09/11/17 03:05 09/11/17 01:18 09/11/17 03:05 Oxygen Delivery Method Room Air Weight: 179 lb 10.828 oz Body Mass Index (BMI) 24.3 Labs (Last 48 Hours) WBC 5.0 RBC 4.51 L Hgb 13.0 Hct 40.0 MCV 88.7 MCH 28.8 MCHC 32.5 RDW 14.5 RDW Differential 46.8 H WBC RBC Clinical Impression(s) from Imaging Studies Chest X-Ray 09/10/17 22:49 IMPRESSION: No significant change. Suspicion of medial right basilar infiltrate. Electronically Signed: López Wong MD at 23:22 EDT , Service support , Assessment/Plan RECOMMENDATIONS: 1. Obtain noncontrasted chest CT 2. Hold off on antibiotics at this time. Check respiratory viral panel, along with strep and urine Legionella antigens. 3. If the patient's cough becomes productive, send sputum for culture. 4. Encourage incentive spirometer use 5. Continue home Xarelto regimen IMPRESSIONS: 1. Shortness of breath/cough/pleuritic chest pain Upon review of the patient's plain film chest imaging, there does not appear to be an acute infiltrative process. Etiology for the patient's current complaints is a bit unclear. Given the findings noted on his prior CT chest, recommend repeating a noncontrasted chest CT for further evaluation. Would hold off on starting antibiotics at this time, as the patient is afebrile, has no white count is not and is not producing any sputum. We will plan to check respiratory viral panel along with strep and urine Legionella antigens. If the patient does begin to produce sputum, send for culture. Encourage incentive spirometer use. 2. Neurogenic bladder/chronic kidney disease status post kidney transplant Continue CellCept, Prograf and Bactrim regimen. 3. Personal history of venous thrombus embolism with recent PE Continue outpatient Xarelto regimen 4. Mild MRDD/hypertension Complicates care, management, recovery and prognosis. Okay to continue home medications from my perspective. This note was generated with [employer] software. It may contain incorrect words, spelling, and punctuation that were not noted in checking the note before signing. Code Visit Inpatient E AND M: [id number] Init Hosp L3 09/12/17 0634 <Electronically signed by Fredi Padilla DO> Date Fredi Padilla DO Cosigner Signature (if applicable): Date CC: Fredi Padilla D.O.; Mike Bella MD Signed DISCHARGE SUMMARY Observed: 09/11/2017 Status: F Source: [place] 2:17 PM [facility] REPOSITORY [facility] Medical Records Department [address] [place] [address] Discharge Summary 09/11/17 1253 MR#: [id number] Acct: [id number] Name: SKYLER PINZON Rep #: [id number] : 1965 52 From: Bharti Aly DEHORNER-C PCP: Mike Bella MD Status: ADM IN Location: [facility] [place] [id number] <Bharti Aly - Last Filed: 09/11/17 13:08> Discharge Date and Diagnosis Date of Admission: 09/11/17 Date of Discharge: 09/11/17 - Primary Discharge Diagnosis Active and Suspected Problems 1. Bronchitis secondary to human metaphneumo virus - Secondary Discharge Diagnosis Chronic Problems Pulmonary embolism (Chronic) Pulmonary infiltrate present on computed tomography (Chronic) CKD (chronic kidney disease), stage III (Chronic) Acute UTI (Chronic) Kidney transplant recipient (Chronic) Congenital nystagmus (Chronic) Mild MRDD (Chronic) DVT (deep venous thrombosis) (Chronic) Renal transplant, status post (Chronic) Neurogenic bladder disorder (Chronic) managed with cic Hospital Course and Treatment Imaging Results: Diagnostic Data Chest X-Ray 09/10/17 22:49 IMPRESSION: No significant change. Suspicion of medial right basilar infiltrate. Electronically Signed: López Wong MD at 23:22 EDT , Service support , Chest CT 09/11/17 07:25 IMPRESSION: Lungs are clear. No effusion. Electronically Signed: Teodoro Patterson DO at 8:35 EDT , Service support , Dr. Padilla- Pulmonary Medicine Operations: None Procedures: None Summary of Care Provided: The patient is a 52 year old M admitted 09/11/2017 due to cough, dyspnea. He has a past medical history of mild MRDD, congenital nystagmus, chronic kidney disease stage III status post renal transplant on chronic immunosuppressive therapy, neurogenic bladder requiring self-catheterization, history of DVT. Patient recently diagnosed with pneumonia 09/09/2017 and was started on oral Levaquin. Patient complained of continued cough and chest wall discomfort. Patient found to have bronchitis secondary to human metaphneumo virus. He can continue Levaquin as previously prescribed. Patient's oxygen is stable on room air. Afebrile. No leukocytosis. He was not noted to have significant cough during admission. No wheezing. Pulmonary consulted due to reported ongoing pulmonary symptoms. CT of chest completed July 20, 2017 showed filling defects within the segmental and segmental subsegmental pulmonary arteries within the right middle lobe consistent with pulmonary emboli. There was evidence of groundglass opacities associated with dependent consolidation within the lower lobes. CT of chest was completed this admission which showed the lungs are clear and no effusion. Respiratory panel positive for human metaphneumo virus. Patient is stable for discharge home with follow up with PCP in 1 week. Patient seen and examined prior to discharge. Heart rate regular rate and rhythm. Lungs clear. Abdomen soft, nontender. Neuro grossly intact. Vital signs stable. Patient stable for discharge home with follow-up with primary care physician in 1 week. This patient was seen by JASS Arauz under the supervision of Dr. Thrasher. Discharge Diet: No Restrictions Discharge Activity: Return to Normal Activity Call your doctor if you observe: Shortness of breath, Dizziness, Fainting spells, Chest pain Home Medications: Medications to take at Discharge Mycophenolate Mofetil [Cellcept] 500 mg PO BID 07/14/16 Amlodipine [Norvasc] 5 mg PO 2100 12/01/16 Tacrolimus Anhydrous [Prograf] 2 mg PO BID 12/02/16 Sulfamethoxazole/Trimethoprim [Sulfamethoxazole-Tmp Ss Tablet] 1 tab PO DAILY 07/13/17 Lactobacillus Acidophilus [Acidophilus] 1 tab PO BID #60 tab 07/18/17 Rivaroxaban [Xarelto] 20 mg PO DAILY 08/17/17 Guaifenesin/Codeine [Robitussin AC] 10 ml PO Q6H PRN PRN 3 Days #100 ml 08/18/17 Oxycodone [Oxyir] 5 mg PO Q6H PRN 3 Days #12 tablet 08/18/17 Albuterol Sulfate [Proair Respiclick] 90 mcg IH Q4H PRN PRN 09/10/17 Levofloxacin [Levaquin] 750 mg PO DAILY 09/10/17 Primary Care Physician: Mike Bella MD [Primary Care Provider] - Please follow up with your Primary Care Physician in: 1 Week Disposition: Home Minutes spent on discharge:: 35 Patient Condition:: Stable Medical Necessity - Tobacco Use Smoking Status: Never smoker Tobacco Use: Non-smoker Meaningful Use Info Meaningful Use Diagnoses (Choose all that apply): None applicable <Teresa Thrasher E - Last Filed: 09/11/17 14:16> Discharge Date and Diagnosis - Secondary Discharge Diagnosis Chronic Problems Pulmonary embolism (Chronic) Pulmonary infiltrate present on computed tomography (Chronic) CKD (chronic kidney disease), stage III (Chronic) Acute UTI (Chronic) Kidney transplant recipient (Chronic) Congenital nystagmus (Chronic) Mild MRDD (Chronic) DVT (deep venous thrombosis) (Chronic) Renal transplant, status post (Chronic) Neurogenic bladder disorder (Chronic) managed with cic Hospital Course and Treatment Imaging Results: 09/11/17 07:25 CT Chest [Chest without Contrast] [CT] Urgent Summary of Care Provided: Hospitalist note: Discharge summary above reviewed and I agree with above discharge plan. Patient was admitted because of cough and mild shortness of breath and he was found to have mild acute viral bronchitis. His chest x-ray showed no acute infiltrate. Pulmonology consulted and recommended to do CT scan chest without contrast. CT scan chest without contrast performed and showed no evidence of acute infiltrate or other acute findings. Pneumonia ruled out. His routine blood work was unremarkable, no leukocytosis. His vital signs were stable, remained afebrile and his pulse ox has been maintained on room air. Respiratory panel for viruses was positive for human Metaphneumo virus. Her symptoms attributed to my acute bronchitis. He was started on Levaquin as outpatient a few days ago for presumed pneumonia but his chest x-ray and CT chest showed no acute infiltrate. Patient discharged home in a stable medical condition, continued on Levaquin that started 3 days ago, continued on his other home medication without any changes, recommended follow-up with PCP in 1 week. Minutes spent on discharge:: 25 Code Visit OBSV Jolie AND M: [id number] Observ/hosp same date L1 09/11/17 1308 <Electronically signed by Bharti CASEC> Date Bharti CASEC 09/11/17 1417<Electronically signed by Teresa Thrasher MD> Cosigner Signature (if applicable): Date Teresa Thrasher MD CC: DEHORNERBeti Aly; Teresa Thrasher; Mike Bella MD Signed DISCHARGE INSTRUCTION Observed: 09/11/2017 Status: F Source: [place] 12:53 PM [facility] REPOSITORY [facility] Medical Records Department [address] [place] [address] Instructions for Home/Discharge Instructions 09/11/17 1251 MR#: [id number] Acct: [id number] Name: SKYLER PINZON Rep #: [id number] : 1965 52 From: Bharti RGEAN PCP: Mike Bella MD Status: ADM IN - Discharge Diagnoses Current Active Problems: Current Active and Chronic Problems Bronchitis (Acute) You will use the following diet at home:: No restrictions Discharge Activity: Return to Normal Activity Call your doctor if you observe: Shortness of breath, Dizziness, Fainting spells, Chest pain Allergies/Adverse Reactions: Allergies No Known Allergies Allergy (Verified 09/10/17 21:48) Medications to take at Discharge Mycophenolate Mofetil [Cellcept] 500 mg PO BID 07/14/16 Amlodipine [Norvasc] 5 mg PO 2100 12/01/16 Tacrolimus Anhydrous [Prograf] 2 mg PO BID 12/02/16 Sulfamethoxazole/Trimethoprim [Sulfamethoxazole-Tmp Ss Tablet] 1 tab PO DAILY 07/13/17 Lactobacillus Acidophilus [Acidophilus] 1 tab PO BID #60 tab 07/18/17 Rivaroxaban [Xarelto] 20 mg PO DAILY 08/17/17 Guaifenesin/Codeine [Robitussin AC] 10 ml PO Q6H PRN PRN 3 Days #100 ml 08/18/17 Oxycodone [Oxyir] 5 mg PO Q6H PRN 3 Days #12 tablet 08/18/17 Albuterol Sulfate [Proair Respiclick] 90 mcg IH Q4H PRN PRN 09/10/17 Levofloxacin [Levaquin] 750 mg PO DAILY 09/10/17 Primary Care Physician: Mike Bella MD [Primary Care Provider] - Please follow up with your Primary Care Physician in: 1 Week Proposed Discharge Date: 09/11/17 09/11/17 1253 <Electronically signed by Bharti REGAN> Date Bharti REGAN CC: Fredi Padilla D.O.; Mike Bella MD CHEST WITHOUT Observed: 09/11/2017 Status: F Source: [place] CONTRAST 7:25 AM [facility] REPOSITORY [facility] Imaging Services [address] [place] [address] Chest without Contrast MR#: [id number] Acct: [id number] Name: SKYLER PINZON Rep #: [id number] : 1965 M 52 From: Teodoro Patterson PCP: Mike Bella MD Status: ADM IN Study: Chest without Contrast Date of Exam: 09/11/17 Exam# [id number] Ordering Dr: Fredi Padilla DO STUDY: CT CHEST WITHOUT CONTRAST REASON FOR EXAM: Male, 52 years old. Cough RADIATION DOSAGE (If Supplied By Facility): CTDIvol = ( 18.31 ) mGy, DLP = ( 741.45 ) mGycm TECHNIQUE: Transaxial imaging was performed without the administration of intravenous contrast material. Multiplanar coronal and sagittal images were reformatted. Individualized dose optimization techniques were used for this CT. COMPARISON: 07/14/2016, 07/20/2017 FINDINGS: The lungs are normal. There is no demonstrated pleural abnormality. Normal heart and pericardium. Normal mediastinum. Normal hilar regions. Normal unenhanced pulmonary arteries. Normal aorta arch and descending thoracic aorta. Normal osseous structures. Mild renal atrophy. Bilateral extrarenal pelvi. CT/Chest without Contrast IMPRESSION: Lungs are clear. No effusion. Electronically Signed: Teodoro Patterson DO at 8:35 EDT , Service support , CC: Fredi Padilla D.O.; Mike Bella MD Admitted Attorneys: Signed BASIC METABOLIC Collected: 09/11/2017 Status: F Source: [place] PROFILE (BMP) 6:40 AM [facility] REPOSITORY TYPE CODE TESTS RESULT OUT OF RANGE REFERENCE UNITS LAB L501.0100 74-106 mg/dL Normal GLU 91 Result Comment: Please note revised GLUCOSE reference range effective 2017. LAB L501.1000 7-18 mg/dL High BUN 19 LAB L501.1100 0.70-1.30 mg/dL High CREAT,SERUM 1.53 Result Comment: The validity of the calculated GFR AND GFRAA in patients over 70 years has not been determined. Clinical correlation is essential. LAB L501.1110 >60 mL/min Low EST GFR 51 Result Comment: Non- GFR Calc LAB L501.1115 >60 mL/min Normal EST GFR - AA 62 Result Comment: GFR Calc LAB L501.1255 ml/min Normal Estimated CRCL 63.40 LAB L501.1300 10-20 RATIO Normal BUN/CRE 12.4 LAB L501.2200 8.5-10 mg/dL Low .1 CA 7.6 LAB L501.5300 136-14 mmol/L Normal 5 NA 144 LAB L501.5600 3.5-5. mmol/L Normal 1 K 3.9 LAB L501.5900 98-107 mmol/L High CL 115 LAB L501.6100 21.0-3 mmol/L Normal 2.0 CO2 21.0 LAB L501.6200 5-15 Normal GAP 8 Performed By: #### L500.2500 #### [facility] [address] [place], [address] CBC W/DIFF, AUTOMATED Collected: 09/11/2017 Status: F Source: [place] 6:40 AM [facility] REPOSITORY TYPE CODE TESTS RESULT OUT OF RANGE REFERENCE UNITS LAB L100.1000 4.4-11.0 K/mm3 Normal WBC 5.0 LAB L100.1200 4.6-6.2 M/mm3 Low RBC 4.22 LAB L100.1300 13.0-16.5 g/dl Low HGB 11.9 LAB L100.1400 40-54 % Low HCT 37.6 LAB L100.1500 80-94 fL Normal MCV 89.1 LAB L100.1600 27.0-32.0 pg Normal MCH 28.2 LAB L100.1700 32-36 g/gl Low MCHC 31.6 LAB L100.1810 11.6-14.6 % High RDW CV 14.7 LAB L100.1820 35.1-43.9 fl High RDW SD 47.8 LAB L100.1900 150-450 K/mm3 Normal PLT 190 LAB L100.2000 6.2-12.0 fl Normal MPV 10.5 LAB L100.2100 47-70 % Normal NEUT% 66.5 LAB L100.2200 19-41 % Normal LY% 22.9 LAB L100.2300 0-10 % Normal MONO% 9.2 LAB L100.2400 0-5 % Normal EO% 0.8 LAB L100.2500 0-1 % Normal BASO% 0.4 LAB L100.2550 0.0-0.9 % Normal IM GRAN % 0.200 Result Comment: IG% - Immature Granulocytes (promyelocytes, myelocytes and metamyelocytes) > 1% indicates that a LEFT SHIFT is Present. LAB L100.2620 2.0-7.7 X10 3/uL Normal Absolute Neut 3.3 LAB L100.2720 0.83-4.51 X10 3/ul Normal Absolute Lymph 1.15 Performed By: #### L100.0100 #### [facility] [address] [place], [address] EMERGENCY DEPARTMENT Observed: 09/11/2017 Status: F Source: [place] SUMMARY 1:43 AM [facility] REPOSITORY [facility] Medical Records Department [address] [place] [address] Emergency Department Summary 09/11/17 0005 MR#: [id number] Acct: [id number] Name: SKYLER PINZON Rep #: [id number] : 1965 52 From: Vania Sullivan MD PCP: Mike Bella MD Status: ADM IN - ER Visit Summary Date of Service: 09/11/17 Chief Complaint: Pneumonia History of Present Illness: The patient is a 52 M who is had frequent bronchitis since August this year. He is most recently on a Z-Av 2 weeks ago. Patient was seen at his PCPs office yesterday due to worsening cough for the past 4 days. X-ray was positive for pneumonia. He was started on albuterol and Levaquin. Patient had 2 doses of Levaquin at home. Tonight he felt dizzy and he has pain with cough. He has been taking oxycodone for pain. History is significant for kidney transplant, neurogenic bladder, and prior DVT/PE. Patient is currently on Xarelto. Physical Examination: Blood pressure is 127/103, temperature 98.3, heart rate 111, respiratory rate 20, pulse ox 97% on room air. Head neck examination is grossly unremarkable. Heart is regular rate and rhythm. Lung sounds are slightly diminished at the bases. I do not appreciate any wheezing or rhonchi. Abdomen is soft nontender. Lower extremity examination reveals no significant calf tenderness or edema. He has strong and equal distal pulses. Test Results: EKG is sinus at 98 with no sign of acute ischemia. Portable chest x-ray reveals no significant change. There is suspicion of a medial right basilar infiltrate. CBC is grossly unremarkable. Chemistry studies reveal BUN 22 and creatinine 1.67. This appears to be his baseline creatinine. Urinalysis shows evidence of RBCs but no infection. Lactate is normal. Blood cultures were sent. Emergency Department Course and Treatment: Patient is given IV fluids. He is ordered oral Robitussin for cough. Last dose of Levaquin was at 9 AM this morning. At this time I will speak with the hospitalist regarding observation overnight for hydration and monitoring of his symptoms. Treatment Plan: [] Disposition: Admit Impression: 1. Community acquired pneumonia 2. History of renal transplant This note was generated with [employer] dictation software. It may contain incorrect words, spelling, and punctuation that were not noted in review of the chart prior to signing ED Disposition - Plan for ED Patient: Chief Complaint: Shortness of Breath Referrals: Mike Bella MD [Primary Care Provider] - What to do if you have Problems For any increased pain, shortness of breath, bleeding, nausea or vomiting, chest pain, or any unexpected problems, contact your Primary Care Provider. Call [facility] ([phone]) or report to the closest Emergency Room. Call 911 if necessary. 09/11/17 0143 <Electronically signed by Vania Sullivan MD> Date Vania Sullivan MD Cosigner Signature (If Indicated): Date CC: Mike Bella MD HISTORY AND PHYSICAL Observed: 09/11/2017 Status: F Source: [place] EXAM 12:52 AM [facility] REPOSITORY [facility] Medical Records Department [address] [place] [address] History and Physical 09/11/17 0008 MR#: [id number] Acct: [id number] Name: SKYLER PINZON Rep #: [id number] : 1965 52 From: Jesica Russo PCP: Mike Bella MD Status: REG ER Y Location: ED Problem List (1) Bronchitis Status: Acute (2) Nonproductive cough Status: Acute (3) Pulmonary embolism Status: Chronic Qualifiers: Pulmonary embolism type: other Chronicity: unspecified Acute cor pulmonale presence: without acute cor pulmonale Qualified Code(s): I26.99 - Other pulmonary embolism without acute cor pulmonale (4) Pulmonary infiltrate present on computed tomography Status: Chronic (5) CKD (chronic kidney disease), stage III Status: Chronic (6) Kidney transplant recipient Status: Chronic (7) Congenital nystagmus Status: Chronic (8) Mild MRDD Status: Chronic (9) DVT (deep venous thrombosis) Status: Chronic Qualifiers: DVT location: lower extremity Affected thrombotic vein of extremity: unspecified vein of extremity Chronicity: unspecified Laterality: unspecified laterality Qualified Code(s): I82.409 - Acute embolism and thrombosis of unspecified deep veins of unspecified lower extremity (10) Neurogenic bladder disorder Status: Chronic Comment: managed with cic History of Present Illness Date of Admission: 09/11/17 Chief Complaint: Cough, Dyspnea The patient is a 52 y/o M w/ PMHx: Mild MRDD with help from his family/sister, Congenital Nystagmus, CKD stage III (baseline Cr 1.6 currently, prior ESRD s/p Renal Txp), Renal Txp status on immunosuppressive therapy, Neurogenic bladder w/ self catheterization although not always complaint with q 4 hours during daytime, Hx DVT w/ recent 07/20/17 CTPA w/ ground-glass opacities with minimal dependent consolidation and atelectasis within the lower lobes, pulmonary emboli within the right middle lobe and 07/14/16 CT Chest w/ bilateral lower lung ground-glass opacities with nodular components who presents to the [facility] ED on 09/11/17 with history of recently being dx with PNA 09/09/17 with initiation on abx therapy Levaquin 750 mg with ongoing coughing, dyspnea, lightheadedness, notably chest wall discomfort with coughing. He was initially ill with similar sxs starting in early August following several other family members ill with similar symptoms lasting at least 2 weeks in them, but prolonged in the patient and ongoing severe uncomfortable coughing, non-productive. He checks is temperature and BP daily and may have had an elevated T several days ago but not recently. In the ED work-up included T 98.3, heart rate 111, BP 127/103--> 132/88, respiratory rate 19, 97% on room air, CBC with WBC 5, hemoglobin 13, platelet 201 shift, BMP with chloride 112, BUN/creatinine 22/1.67 (1.6-1.8 baseline), lactic acid 0.9, UA with protein, blood, no WBCs and no urine bacteria noted, chest x-ray with continued increased density of the medial right lung base possibly secondary to atelectasis versus infiltrate. In the ED patient administered IVFs and cough regimen. Past Medical History Past Medical History (Chronic Problems): Chronic Problems Pulmonary embolism (Chronic) Pulmonary infiltrate present on computed tomography (Chronic) CKD (chronic kidney disease), stage III (Chronic) Acute UTI (Chronic) Kidney transplant recipient (Chronic) Congenital nystagmus (Chronic) Mild MRDD (Chronic) DVT (deep venous thrombosis) (Chronic) Renal transplant, status post (Chronic) Neurogenic bladder disorder (Chronic) managed with cic Allergies No Known Allergies Allergy (Verified 09/10/17 21:48) Home Medications: Ambulatory Orders Medication Instructions Recorded Mycophenolate Mofetil [Cellcept] 500 mg PO BID 07/14/16 Surgical History: - - Right kidney transplant [facility], dialysis access prior. Right upper extremity fistula Psychiatric History: No pertinent psych hx, - - MRDD Lives: Alone Smoking Status: Never smoker Tobacco Use: Non-smoker Alcohol: None Drugs: None - *Family History Maternal History Items: Hypertension Paternal History Items: Diabetes Review of Systems Constitutional: Reports: Malaise, Weakness, Fatigue. Denies: Chills, Fever, Weight Change HEENT: Denies: Head Aches, Sinus Congestion, Sinus Drainage Cardiovascular: Reports: Chest Pain. Denies: Palpitations Respiratory: Reports: Cough, Shortness of breath upon exertion. Denies: Shortness of breath at rest, Sputum production, Wheezing Gastrointestinal: Denies: Abdominal Pain, Nausea, Vomiting Genitourinary: Reports: - - Straight catheterization chronically.. Denies: Dysuria Musculoskeletal: Denies: Joint Pain, Joint Tenderness Skin: Denies: Rash, Wounds Neurological: Reports: - - MRDD. Denies: Focal weakness, Numbness, Tingling Psychiatric: Denies: Anxiety, Depression, Homicidal Ideations, Suicidal Ideations Hematologic/ Lymphatic: Denies: Easy Bruising, Easy Bleeding VTE Information - Inpt Only VTE Present on Admission: No VTE Mechan Device Prophylaxis: SCD's VTE Pharm Prophylaxis ordered?: Yes Patient Problems: Active and Suspected Problems Bronchitis (Acute) Subjective: Seated upright in the ED bed, fatigued appearance, harsh dry coughing with grimacing secondary to pain during examination. Objective: Physical Examination: General: awake, alert, less talkative than baseline, oriented x 3 and cooperative, seated upright in the ED bed, fatigued appearance. Skin: normal color, turgor, no icterus, cyanosis. HEENT: AT/NC, EOMI, PERRLA, dry MM, posterior OP erythema, no carotid bruits or JVD noted. Lungs: Diminished BS BL, > bases, mild effort, currently no rales, ronchi or wheezing. Heart: Mildly tachycardic with regular rhythm (after coughing fit); no gallop, rub audible. Abdomen: soft, NTTP, ND, normal BS, no HSM. Extremities: no cyanosis, clubbing, or edema. Neurological: patient awake, alert, oriented x 3; cognitive function intact but less interactive secondary to fatigue; pupils equally reactive to light and accomodation; cranial nerves II-XII grossly normal, moving all 4 extremities, no focal deficits, strength severely globally decreased secondary to acute presentation. Psychiatric: affect appears flat, fatigued, no acute evidence of depressive or anxiety feelings. - Physical Exam Vital Signs Temp Pulse Resp BP Pulse Ox 98.3 F 103 H 19 H 132/88 H 97 09/10/17 21:46 09/11/17 00:01 09/11/17 00:01 09/11/17 00:01 09/11/17 00:01 Oxygen Delivery Method Room Air Weight: 179 lb 7.3 oz Body Mass Index (BMI) 24.3 Laboratory Tests Past 24 Hrs WBC 5.0 RBC 4.51 L Hgb 13.0 Hct 40.0 MCV 88.7 MCH 28.8 MCHC 32.5 RDW 14.5 WBC RBC Hgb Hct MCV MCH MCHC RDW RDW Differential Plt Count MPV Immature Gran % (Auto) Neut % (Auto) Lymph % (Auto) Assessment/Plan Active and Suspected Problems Bronchitis (Acute) The patient is a 52 y/o M w/ PMHx: Mild MRDD with help from his family/sister, Congenital Nystagmus, CKD stage III, Renal Txp status on immunosuppressive therapy, Neurogenic bladder w/ self catheterization although not always complaint with q 4 hours during daytime, Hx DVT and recent PE who presents to the [facility] ED on 09/11/17 with history of recently being dx with PNA 09/09/17 with initiation on abx therapy Levaquin 750 mg with ongoing coughing, dyspnea, lightheadedness, notably chest wall discomfort with coughing. (1) Dyspnea, Cough w/ Chronic CT/CXR chronic changes suspected secondary to Bronchitis versus PNA: Patient has had ongoing symptoms through August, CT changes have been noted through several prior CTs including on the A/P at the bases, suspect this more to be severe bronchitis versus PNA, treated w/ z-pack x 2 and also now on Levaquin 750 mg daily with dose already administered on 09/10/17, but not relenting and given txp status to be cautious will admit to [facility], maintain on IVFs, cough regimen, aerosols, PRN albuterol, obtain respiratory viral panel, obtain sputum Cx, already administered levaquin 750 mg on day of presentation thus defer further abx therapy pending Pulmonary evaluation given now 2nd time for presentation secondary to pulmonary complaint within 2 months to assess for PNA versus bronchitis. Prior admission with evaluation per Speech to assure no aspiration and was unremarkable. Restart abx therapy and/or broaden if pulmonary feels appropriate. (2) Neurogenic Bladder and Self-Catheterization: UA with protein, RBC but no obvious infection, continue q 4 hour straight catheterization during daytime per home regimen recommended. (3) Prior ESRD/CKD IV, currently CKD stage III, status post kidney transplant: Admission BUN/Cr 22/1.67, stable, baseline Cr 1.6-1.8, continue cellcept, prograf, bactrim prophylactic regimen. (4) Hypertension: Continue home regimen including norvasc, PRN hydralazine. (5) Mild mental retardation: Stable, family supportive. (6) Hx DVT, Recent PE: Maintain on home xarelto regimen. (7) DVT Prophylaxis: SCDs, heparin. (8) CODE status: Discussed CODE status at length including difference between FULL code, DNR-CCA and DNR-CC status. Following discussions about the differences in these status, requested FULL CODE. Advanced Care Planning Face to Face Time: 16 minutes. Code Visit Inpatient E AND M: 89257 Init Hosp L3 Procedures: 04452 Advncd Care Plan 30 Min 09/11/17 0052 <Electronically signed by Jesica Russo > Date Jesica Russo Cosigner Signature: Date (if applicable) CC: Jesica Russo; Mike Bella MD Signed Observed: 09/11/2017 Status: F Source: [place] RESPIRATORY PANEL 12:50 AM [facility] MOLECULAR REPOSITORY RP PANEL Normal Reference Range = Not Detected Copy of report sent to Infection Control Printer [id number] 09/11/17 1053 ELA.RESULTS CALLED TO KETTY ORDAZ 09/11/17 1053 Alley Lui. REPORT READ BACK BY SAME. ADENOVIRUS Not Detected HUMAN METAPHNEUMO Positive for HUMAN METAPHNEUMO VIRUS by NAAT technology INFLUENZA A Not Detected INFLUENZA A (SUBTYPE H1) Not Detected INFLUENZA A (SUBTYPE H3) Not Detected INFLUENZA B Not Detected PARAINFLUENZA 1 Not Detected PARAINFLUENZA 2 Not Detected PARAINFLUENZA 3 Not Detected PARAINFLUENZA 4 Not Detected RHINOVIRUS Not Detected RSV A Not Detected RSV B Not Detected NAAT METHOD Testing was performed using nucleic acid amplification ORGANISM 1: HUMAN META Performed By: #### M100.638 #### [facility] [address] [place], [place] [address]. [place], [place], [address] MAGNESIUM Collected: 09/11/2017 Status: F Source: [place] 12:00 AM [facility] REPOSITORY TYPE CODE TESTS RESULT OUT OF RANGE REFERENCE UNITS LAB L501.5200 1.6-2.6 mg/dL Normal MG 1.7 Performed By: #### L501.5200 #### [facility] [address] [place], [place], [address] Observed: 09/10/2017 Status: F Source: MEL[place] CULTURE, BLOOD (WB) 11:25 PM [facility] REPOSITORY BC No growth in 5 days. Performed By: #### M200.1000 #### [facility] [address] [place], [place], [address] CBC W/DIFF, AUTOMATED Collected: 09/10/2017 Status: F Source: [place] 11:10 PM [facility] REPOSITORY TYPE CODE TESTS RESULT OUT OF RANGE REFERENCE UNITS LAB L100.1000 4.4-11.0 K/mm3 Normal WBC 5.0 LAB L100.1200 4.6-6.2 M/mm3 Low RBC 4.51 LAB L100.1300 13.0-16.5 g/dl Normal HGB 13.0 LAB L100.1400 40-54 % Normal HCT 40.0 LAB L100.1500 80-94 fL Normal MCV 88.7 LAB L100.1600 27.0-32.0 pg Normal MCH 28.8 LAB L100.1700 32-36 g/gl Normal MCHC 32.5 LAB L100.1810 11.6-14.6 % Normal RDW CV 14.5 LAB L100.1820 35.1-43.9 fl High RDW SD 46.8 LAB L100.1900 150-450 K/mm3 Normal PLT 201 LAB L100.2000 6.2-12.0 fl Normal MPV 10.6 LAB L100.2100 47-70 % High NEUT% 70.7 LAB L100.2200 19-41 % Low LY% 14.9 LAB L100.2300 0-10 % High MONO% 12.4 LAB L100.2400 0-5 % Normal EO% 1.0 LAB L100.2500 0-1 % Normal BASO% 0.8 LAB L100.2550 0.0-0.9 % Normal IM GRAN % 0.200 Result Comment: IG% - Immature Granulocytes (promyelocytes, myelocytes and metamyelocytes) > 1% indicates that a LEFT SHIFT is Present. LAB L100.2620 2.0-7.7 X10 3/uL Normal Absolute Neut 3.6 LAB L100.2720 0.83-4.51 X10 3/ul Low Absolute Lymph 0.75 Performed By: #### L100.0100 #### [facility] [address] [place], [place], [id number] BASIC METABOLIC Collected: 09/10/2017 Status: F Source: MELVIN PROFILE (BMP) 11:10 PM [facility] REPOSITORY TYPE CODE TESTS RESULT OUT OF RANGE REFERENCE UNITS LAB L501.0100 74-106 mg/dL Normal GLU 103 Result Comment: Fasting Glucose result from 100 to 125 mg/dL suggests IMPAIRED HOMEOSTASIS per A.D.A. criteria. Please note revised GLUCOSE reference range effective 2017. LAB L501.1000 7-18 mg/dL High BUN 22 LAB L501.1100 0.70-1.30 mg/dL High CREAT,SERUM 1.67 Result Comment: The validity of the calculated GFR AND GFRAA in patients over 70 years has not been determined. Clinical correlation is essential. LAB L501.1110 >60 mL/min Low EST GFR 47 Result Comment: Non- GFR Calc LAB L501.1115 >60 mL/min Low EST GFR - AA 56 Result Comment: GFR Calc LAB L501.1255 ml/min Normal Estimated CRCL 58.08 LAB L501.1300 10-20 RATIO Normal BUN/CRE 13.2 LAB L501.2200 8.5-10 mg/dL Low .1 CA 8.1 LAB L501.5300 136-14 mmol/L Normal 5 NA 141 LAB L501.5600 3.5-5. mmol/L Normal 1 K 4.1 LAB L501.5900 98-107 mmol/L High CL 112 LAB L501.6100 21.0-3 mmol/L Normal 2.0 CO2 22.0 LAB L501.6200 5-15 Normal GAP 7 Performed By: #### L500.2500 #### [facility] [address] [place], [address] URINALYSIS, COMPLETE Collected: 09/10/2017 Status: F Source: [place] 11:10 PM [facility] REPOSITORY Order Comment: Order Date: 09/10/17 COLOR OF URINE MAY AFFECT DIPSTICK RESULTS. How was Urine Obtained? SEPTIC TECHNICIAN TO SPECIFY TYPE CODE TESTS RESULT OUT OF RANGE REFERENCE UNITS LAB L400.3000 Yellow COLOR Normal Brown LAB L400.3050 Clear Normal CLARITY Turbid LAB L400.3200 Normal mg/dl Normal GLUCOSE, UR Normal LAB L400.3300 Negative mg/dL Normal BILIRUBIN URINE Negative LAB L400.3400 Negative mg/dl Normal KETONE UR Negative LAB L400.3465 1.002-1.030 Normal SP.GR. DIPSTX 1.015 LAB L400.3550 5.0 - 8.0 pH UR Normal 5.0 LAB L400.3600 Negative mg/dl High PROT DIPSTX 500 LAB L400.3700 Normal mg/dl Normal UROBILI Normal LAB L400.3750 Negative Normal NITRITE UR Negative LAB L400.3780 Negative /ul High OCCULT BLOOD-UR 250 LAB L400.3800 Negative /ul LEUK Normal ESTERASE Negative LAB L400.4050 0-5 /hpf WBC 0 Normal SEEN LAB L400.4100 0-5 /hpf > Normal RBC-UA 100 SEEN LAB L400.4150 0-5 /hpf SQUAM Normal EPI 0-5 SEEN LAB L400.4300 None Seen /hpf 0 Normal BACTERIA SEEN LAB L400.4350 <or=2+ /hpf 0 Normal MUCUS, URINE SEEN Performed By: #### L400.0001 #### [facility] [address] [place], [address] LACTIC ACID Collected: 09/10/2017 Status: F Source: [place] 11:10 PM [facility] REPOSITORY Order Comment: Yes/No query for Sepsis Lactate Rule Y TYPE CODE TESTS RESULT OUT OF RANGE REFERENCE UNITS LAB L503.6005 0.4-2.0 mmol/L Normal LACTIC ACID 0.9 Performed By: #### L503.6005 #### [facility] [place], [address] Observed: 09/10/2017 Status: F Source: [place] CULTURE, BLOOD (WB) 11:10 PM [facility] REPOSITORY BC No growth in 5 days. Performed By: #### M200.1000 #### [facility] [address] [place] [address], [address] CHEST 1 VIEW Observed: 09/10/2017 Status: F Source: [place]EL[place] (PORTABLE) 10:47 PM [facility] REPOSITORY [facility] Imaging Services [address] [place] [address] Chest 1 View (Portable) MR#: [id number] Acct: [id number] Name: SKYLER PINZON Rep #: [id number] : 1965 M 52 From: López Wong MD PCP: Mike Bella MD Status: REG ER Study: Chest 1 View (Portable) Date of Exam: 09/10/17 Exam# [id number] Ordering Dr: Vania Sullivan MD STUDY: X-RAY CHEST REASON FOR EXAM: Male, 52 years old. Coughing. Short of breath. TECHNIQUE: Single AP portable view of the chest. COMPARISON: 09/09/2017. FINDINGS: Continued increased density of the medial right lung base. Findings continue to suggest atelectasis or infiltrate. Lungs otherwise clear. No effusions. Normal size heart. Normal mediastinum and alton. Normal visualized pulmonary arteries. Normal visualized aortic arch and descending thoracic aorta. Normal visualized thoracic spine. Normal visualized ribs, clavicles, and shoulders. There is no demonstrated abnormality of the visualized soft tissue structures of the upper abdomen. RAD/Chest 1 View (Portable) IMPRESSION: No significant change. Suspicion of medial right basilar infiltrate. Electronically Signed: López Wong MD at 23:22 EDT , Service support , CC: Vania Sullivan MD; Mike Bella MD Admitted Attorneys: Signed CHEST PA AND LATERAL Observed: 09/09/2017 Status: F Source: [place] 12:03 PM [facility] REPOSITORY [facility] Imaging Services [address] [place] [address] Chest PA and Lateral MR#: [id number] Acct: [id number] Name: SKYLER PINZON Rep #: [id number] : 1965 M 52 From: López Wong MD PCP: Mike Bella MD Status: REG CLI Study: Chest PA and Lateral Date of Exam: 09/09/17 Exam# [id number] Ordering Dr: Ha Lyle MD STUDY: X-RAY CHEST REASON FOR EXAM: Male, 52 years old. Kidney transplant. Abdominal pain. Cough. TECHNIQUE: Frontal and lateral views of the chest. COMPARISON: 08/18/2017. FINDINGS: Hyperexpansion of the lungs. Infiltrate in the medial lower right lung, possibly the right middle lobe. No effusions. Lungs otherwise clear. Normal size heart. Normal mediastinum and alton. Normal visualized pulmonary arteries. Normal visualized aortic arch and descending thoracic aorta. There are diffuse degenerative changes of the visualized thoracic spine. Normal visualized ribs, clavicles, and shoulders. There is no demonstrated abnormality of the visualized soft tissue structures of the upper abdomen. RAD/Chest PA and Lateral IMPRESSION: Hyperexpansion of the lungs. Infiltrate in the medial lower right lung, possibly the right middle lobe. Electronically Signed: López Wong MD at 23:59 EDT , Service support , CC: Ha Lyle MD; Mike Bella MD Admitted Attorneys: Signed 12 LEAD ELECTROCARDIOGRAM Observed: 08/22/2017 Status: F Source: [place] 8:55 PM [facility] REPOSITORY [facility] Cardiovascular Services [address] [place] [address] 12 Lead EKG 08/17/17 2344 MR#: [id number] Acct: [id number] Name: SKYLER PINZON Rep #: [id number] : 1965 52 From: Dylan Reid MD Attending Dr: Ambrosio Solis DO Status: DIS PILY Ordering Dr: Sally Simon MD Date: 08/18/17 Location: MS3 Sex: M C Admitted: 08/18/17 Test Reason : CP Blood Pressure : / mmHG Vent. Rate : 095 BPM Atrial Rate : 095 BPM P-R Int : 128 ms QRS Dur : 084 ms QT Int : 366 ms P-R-T Axes : 062 022 057 degrees QTc Int : 459 ms Normal sinus rhythm with sinus arrhythmia Normal ECG Confirmed by DYLAN REID ([id number]), associate entertainment editor IRAM CONKLIN ([id number]) on 08/19/2017 2:15:50 PM Referred By: PAUL Confirmed By:DYLAN REID 08/19/17 1415 Date Dylan Reid MD CC: Ambrosio Solis DO; Sally Simon MD; Mike Bella MD Signed CBC W/DIFF, AUTOMATED Collected: 08/20/2017 Status: F Source: [place]EL[place] 8:05 AM [facility] REPOSITORY Order Comment: TAC, CBC, AND RENAL TO DR. RAO CBC TO DR. SUAREZ RENAL AND CULTURE TO DR. CRENSHAW ([facility]) CANCELLED DUE TO RENAL TYPE CODE TESTS RESULT OUT OF RANGE REFERENCE UNITS LAB L100.1000 4.4-11.0 K/mm3 Normal WBC 5.0 LAB L100.1200 4.6-6.2 M/mm3 Normal RBC 4.68 LAB L100.1300 13.0-16.5 g/dl Normal HGB 13.3 LAB L100.1400 40-54 % Normal HCT 41.8 LAB L100.1500 80-94 fL Normal MCV 89.3 LAB L100.1600 27.0-32.0 pg Normal MCH 28.4 LAB L100.1700 32-36 g/gl Low MCHC 31.8 LAB L100.1810 11.6-14.6 % High RDW CV 14.7 LAB L100.1820 35.1-43.9 fl High RDW SD 48.2 LAB L100.1900 150-450 K/mm3 Normal PLT 172 LAB L100.2000 6.2-12.0 fl Normal MPV 11.3 LAB L100.2100 47-70 % Normal NEUT% 64.2 LAB L100.2200 19-41 % Low LY% 16.5 LAB L100.2300 0-10 % High MONO% 13.7 LAB L100.2400 0-5 % Normal EO% 4.8 LAB L100.2500 0-1 % Normal BASO% 0.6 LAB L100.2550 0.0-0.9 % Normal IM GRAN % 0.200 Result Comment: IG% - Immature Granulocytes (promyelocytes, myelocytes and metamyelocytes) > 1% indicates that a LEFT SHIFT is Present. LAB L100.2620 2.0-7.7 X10 3/uL Normal Absolute Neut 3.2 LAB L100.2720 0.83-4.51 X10 3/ul Normal Absolute Lymph 0.83 Performed By: #### L100.0100 #### [facility] [address] [place], [address] RENAL PROFILE Collected: 08/20/2017 Status: F Source: [place] 8:05 AM [facility] REPOSITORY Order Comment: TAC, CBC, AND RENAL TO DR. RAO CBC TO DR. SUAREZ RENAL AND CULTURE TO DR. CRENSHAW ([facility]) CANCELLED DUE TO RENAL TYPE CODE TESTS RESULT OUT OF RANGE REFERENCE UNITS LAB L501.0100 74-106 mg/dL Normal GLU 89 Result Comment: Please note revised GLUCOSE reference range effective 2017. LAB L501.1000 7-18 mg/dL Normal BUN 15 LAB L501.1100 0.70-1.30 mg/dL High CREAT,SERUM 1.43 Result Comment: The validity of the calculated GFR AND GFRAA in patients over 70 years has not been determined. Clinical correlation is essential. LAB L501.1110 >60 mL/min Low EST GFR 56 Result Comment: Non- GFR Calc LAB L501.1115 >60 mL/min Normal EST GFR - AA 67 Result Comment: GFR Calc LAB L501.1300 10-20 RATIO Normal BUN/CRE 10.5 LAB L501.1800 3.2-5.0 g/dL Normal ALB 3.8 LAB L501.2200 8.5-10.1 mg/dL Low CA 8.2 LAB L501.2300 2.5-4.9 mg/dL Low PHOS 1.6 LAB L501.5300 136-145 mmol/L NA Normal 143 LAB L501.5600 3.5-5.1 mmol/L K Normal 3.9 LAB L501.5900 98-107 mmol/L High CL 111 LAB L501.6100 21.0-32.0 mmol/L Normal CO2 24.0 Performed By: #### L500.3600 #### [facility] [address] [facility] [place], [address] Observed: 08/20/2017 Status: F Source: [place] CULTURE, URINE 8:05 AM [facility] REPOSITORY TAC, CBC, AND RENAL TO DR. RAO CBC TO DR. SUAREZ RENAL AND CULTURE TO DR. CRENSHAW ([facility]) CANCELLED DUE TO RENAL Urine Culture ORGANISM 1: Enterococcus faecium [facility] Count 80,000-100,000 Enterococcus faecium: REACTION Ampicillin $ 16 R Benzylpenicillin NF 32 R Ciprofloxacin $ >=8 R Gentamicin SYN-S S Levofloxacin $ >=8 R Linezolid $$$$ 2 S Nitrofurantoin $ 32 S Streptomycin $ SYN-S S Tetracycline NF >=16 R Vancomycin $ <=0.5 S (NF) indicates non-formulary drug at [facility]. Approval by Infectious Disease Specialist required before non-formulary drugs may be ordered and/or dispensed. * CLSI guidelines does not recommend testing of cephalosporins. This interpretation is deduced from Beta-lactam/penicillin results. Performed By: #### M100.0650 #### [facility] [address] [facility] [place], [address] TACROLIMUS (PROGRAF) Collected: 08/20/2017 Status: F Source: [place] 8:05 AM [facility] REPOSITORY Order Comment: TAC, CBC, AND RENAL TO DR. RAO CBC TO DR. SUAREZ RENAL AND CULTURE TO DR. CRENSHAW ([facility]) CANCELLED DUE TO RENAL TYPE CODE TESTS RESULT OUT OF RANGE REFERENCE UNITS LAB L3380.1100 2.0-20.0 ng/mL Normal TACROLIMUS 5.4 Result Comment: Trough (immediately following transplant) 15.0 Trough (steady state, 2 weeks or more after transplant): 3.0 - 8.0 Detection Limit = 1.0 Performed by LC-MS/MS technology. Performed at: [address] [id number] Print Binding Worker: Renan Soares MD, Phone: [phone] Performed By: #### L3380.1000 #### [facility] (refer to report for specific site) refer to report for address and phone number DISCHARGE SUMMARY Observed: 08/19/2017 Status: F Source: [place] 6:38 AM [facility] REPOSITORY [facility] Medical Records Department [address] [place] [address] Discharge Summary 07/18/17 0958 MR#: [id number] Acct: [id number] Name: SKYLER PINZON Rep #: [id number] : 1965 52 From: Bharti REGAN PCP: Mike Bella MD Status: DIS IN Y Location: [facility] [id number] ADDENDUM by Keli Metzger on 08/19/17 at 0638 Code Visit Sepsis was ruled out. The patient had pyelonephritis. 08/19/17 0638 <Electronically signed by Adilene Metzger DO> Date Adilene Metzger DO cc: JASS Aly; Keli Metzger; Mike Bella MD * Signed ADDENDUM by Keli Metzger on 08/06/17 at 1044 Code Visit The acute cystitis is related to self catheterization for bladder outlet obstruction. Pt has MRDD and has not been self cathing as frequently as he needs to. 08/06/17 1044 <Electronically signed by Adilene Metzger DO> Date Adilene Metzger DO cc: JASS Aly; Keli Metzger; Mike Bella MD * Signed <Bharti Aly - Last Filed: 07/18/17 10:04> Discharge Date and Diagnosis Date of Admission: 07/13/17 Date of Discharge: 07/18/17 - Primary Discharge Diagnosis Active and Suspected Problems 1. Acute Enterobacter aerogenes cystitis in immunocompromised patient status post kidney transplant 2. Acute kidney injury on chronic renal failure stage III - Secondary Discharge Diagnosis Chronic Problems CKD (chronic kidney disease), stage III (Chronic) Congenital nystagmus (Chronic) Mild MRDD (Chronic) DVT (deep venous thrombosis) (Chronic) Renal transplant, status post (Chronic) Neurogenic bladder disorder (Chronic) managed with cic Hypertension Hospital Course and Treatment Imaging Results: Diagnostic Data Chest X-Ray 07/13/17 21:50 IMPRESSION: Normal x-ray examination of the chest. Electronically Signed: Hans Wong MD at 22:44 EDT , Service support , Abdomen/Pelvis CT 07/16/17 05:55 IMPRESSION: Transplant kidney in the right lower quadrant. There is perinephric edema of the transplanted kidney. There is no hydronephrosis of the transplant kidney. There is stable hydronephrosis of atrophic right kidney. There is wall thickening of the urinary bladder. Left lower lung pneumonia. Electronically Signed: Miah Barrios MD at 11:02 EDT , Service support , Dr. Santos- ID Dr. Williamson- Nephrology Operations: None Procedures: None Summary of Care Provided: Patient is a 52-year-old male admitted 07/13/2017 due to fever, nausea, emesis, suprapubic pain. He has a past medical history of mild MRDD, congenital nystagmus, chronic kidney disease stage III with prior end-stage renal disease status post renal transplant on chronic immunosuppressive therapy, neurogenic bladder requiring self catheterization, history of DVT, hypertension. 1. Acute Enterobacter aerogenes cystitis-confirmed by urine culture. Infectious disease consulted. Patient received IV antibiotics during admission. Discharge on Cipro 500 mg twice daily with stop date 07/25/2017. Patient is status post kidney transplant. Continue prophylactic Bactrim. Fever resolved. CT of abdomen completed due to abdominal pain which showed transplant kidney in the right lower quadrant, perinephric edema of the transplanted kidney, no hydronephrosis of the transplant kidney. Stable hydronephrosis of atrophic right kidney. Thickening of the urinary bladder. Patient has history of neurogenic bladder and straight caths at home. He will continue outpatient follow- up with Dr. Crenshaw. 2. Acute diarrhea-resolved. Stool sent for C. difficile which was negative. He will continue acidophilus twice daily at discharge. 3. Acute kidney injury on chronic renal failure stage III- history of end-stage renal disease status post renal transplant. Continue chronic immunosuppressive therapy with CellCept and tacrolimus. Creatinine 1.13 at discharge. Nephrology consulted during admission. Patient will continue outpatient follow-up with nephrology. 4. History of DVT-not on chronic anticoagulation. 5. Mild MRDD-highly functioning, lives by himself, employed full-time. Denies home-going needs. 6. Hypertension-stable, continue home amlodipine regimen. General: Alert, Oriented x3, Cooperative, No apparent distress HEENT: Atraumatic, PERRLA, EOMI, Normocephalic Neck: Supple, No JVD, Negative Carotid Bruits Lungs: Clear to auscultation, Normal air movement Cardiovascular: Regular rate, Regular Rhythm, Normal S1, Normal S2, No murmurs Abdomen: Bowel Sounds Present, Soft, Tender - Generalized, slightly worse right upper quadrant, - - Mild distention Extremities: No clubbing, No cyanosis, No edema, Capillary Refill Less than 3 Seconds, - - Right forearm fistulogram Skin: No rashes, No breakdown Musculoskeletal: No Tenderness to Palpation of Joints or Extremities Neurological: Cranial nerves II-XII grossly intact, Neuro grossly intact Psych/Mental Status: Normal Affect, Appropriate Patient seen and examined prior to discharge. Physical assessment as noted above. Patient is stable for discharge home with recommendations as noted above. This patient was seen by JASS Arauz under the supervision of Dr. Metzger. Discharge Diet: No Restrictions Discharge Activity: Return to Normal Activity Call your doctor if you observe: Fever of 101 or Higher, Shortness of breath, Dizziness, Fainting spells, Chest pain Home Medications: Medications to take at Discharge Mycophenolate Mofetil [Cellcept] 500 mg PO BID 07/14/16 Amlodipine [Norvasc] 5 mg PO 2100 12/01/16 Tacrolimus Anhydrous [Prograf] 2 mg PO BID 12/02/16 Sulfamethoxazole/Trimethoprim [Sulfamethoxazole-Tmp Ss Tablet] 1 tab PO DAILY 07/13/17 Ciprofloxacin [Cipro] 500 mg PO BID #16 tab 07/18/17 Lactobacillus Acidophilus [Acidophilus] 1 tab PO BID #60 tab 07/18/17 Rivaroxaban [Xarelto] 15 mg PO BIDCM #42 tab 07/21/17 Following Prescrptions Were Given to Patient: Ciprofloxacin [Cipro] 500 mg PO BID #16 tab Lactobacillus Acidophilus [Acidophilus] 1 tab PO BID #60 tab Primary Care Physician: Mike Bella MD [Primary Care Provider] - Please follow up with your Primary Care Physician in: 1 Week Please Follow Up With: Nakul Crenshaw MD When: As scheduled Please Follow Up With: Kidney Doctor When: As scheduled Disposition: Home Minutes spent on discharge:: 35 Patient Condition:: Stable Medical Necessity - Tobacco Use Smoking Status: Never smoker Tobacco Use: Non-smoker Meaningful Use Info Meaningful Use Diagnoses (Choose all that apply): None applicable <Adilene Metzger - Last Filed: 07/26/17 19:17> Discharge Date and Diagnosis - Secondary Discharge Diagnosis Chronic Problems Pulmonary infiltrate present on computed tomography (Chronic) CKD (chronic kidney disease), stage III (Chronic) Acute UTI (Chronic) Kidney transplant recipient (Chronic) Congenital nystagmus (Chronic) Mild MRDD (Chronic) DVT (deep venous thrombosis) (Chronic) Renal transplant, status post (Chronic) Neurogenic bladder disorder (Chronic) managed with cic Hospital Course and Treatment Summary of Care Provided: The patient is a 52 year old M [] Code Visit This patient was seen in conjunction with Bharti Aly NP. I have independently interviewed and examined the patient and reviewed pertinent historical, laboratory and other data. Please refer to the discharge summary note for details of this patient's presentation, findings and recommendations. I have reviewed Bharti's note and concur fully with documented findings. In brief, patient is a 52 YO male admitted with complicated UTI due to pyelonephritis in an an immunocompromised pt with a hx of a renal transplant on immunosuppressive agents who has urine retention and self catheterizes. He was initially started on Rocephin but this was broadened to Merem because he had a hx of E. Coli ESBL in the past until the cultures were available. He was seen in consult bu ID and nephro. The urine culture grew enterobacter and the antibiotic spectrum was narrowed to Cipro. A CT scan of the abdomen was due because he complained of severe abdominal pain. there was perinephric edema of the transplanted kidney but no hydronephrosis of the transplanted kidney. Physical examination: ungs - CTA Heart RRR, no gallop and no MM Abdomen - soft, NT, ND with normal BS's present No edema and no rashes Assessment: 1. enterobacter pyelonephritis in an immunocompromised host who self catheterizes 2. urinary retention 3. hx of renal transplant 4. stage 3 CRF I have discussed my assessment with Bharti and orders have been written. Inpatient E AND M: 04398 Disch Hosp 07/18/17 1004 <Electronically signed by Bharti Aly NP-C> Date Bharti CASEC 07/26/17 1917<Electronically signed by Adilene Metzger DO> Cosigner Signature (if applicable): Date Adilene Metzger DO CC: JASS Aly; Keli Metzger; Mike Bella MD Signed DISCHARGE SUMMARY Observed: 08/18/2017 Status: F Source: [place] 12:11 PM [facility] REPOSITORY [facility] Medical Records Department [address] [place] [address] Discharge Summary 08/18/17 1208 MR#: [id number] Acct: [id number] Name: SKYLER PINZON Rep #: [id number] : 1965 52 From: Ambrosio Solis DO PCP: Mike Bella MD Status: ADM PILY Y Location: [place] [address] Discharge Date and Diagnosis - Problem List Patient Problems: Active and Suspected Problems Right-sided chest pain (Acute) Nonproductive cough (Acute) Date of Admission: 08/18/17 Date of Discharge: 08/18/17 - Primary Discharge Diagnosis Active and Suspected Problems Right-sided chest pain (Acute) Nonproductive cough (Acute) - Secondary Discharge Diagnosis Chronic Problems Pulmonary infiltrate present on computed tomography (Chronic) CKD (chronic kidney disease), stage III (Chronic) Acute UTI (Chronic) Kidney transplant recipient (Chronic) Congenital nystagmus (Chronic) Mild MRDD (Chronic) DVT (deep venous thrombosis) (Chronic) Renal transplant, status post (Chronic) Neurogenic bladder disorder (Chronic) managed with cic Hospital Course and Treatment Imaging Results: Clinical Impression(s) from Imaging Studies Chest X-Ray 08/18/17 00:02 IMPRESSION: No radiographic evidence of acute intrathoracic disease. at 0043 Reported and signed by: Iram Barr MD Electronically Signed: Iram Barr MD at 0:42 EDT Tel , Service support , Operations: None Procedures: None Summary of Care Provided: The patient is a 52 year old M with cough and midsternal chest pain. Patient was admitted a month ago with chest pain due to pulmonary embolism. Patient has been coughing is been nonproductive. Patient on exam has reproducible anterior chest wall pain. Patient did have EKG was normal and serial troponins that were also negative. Given the fact that his chest pain was atypical I did not feel that patient warranted additional workup. I told patient he was being discharged patient requested to stay another night when asked him what his expectations were about staying another night he did not further elaborate. I told him that we have evaluated him for pneumonia as well as cardiac equivalent in those have been negative and that I do not feel that he necessitates further hospitalization. I told him that we would treat his pain and also with this cough. I feel that his chest pain is like to later with costochondritis due to coughing. On physical exam patient is in no distress. No conversational dyspnea no respiratory distress. Patient is on room air. Patient has reproducible anterior chest wall tenderness similar to what he is planning. Lungs are clear to auscultation bilaterally with equal air entry. Heart is regular rate and rhythm plus S1-S2 without any murmurs capture rubs. [] Discharge Diet: No Restrictions Discharge Activity: Return to Normal Activity Call your doctor if you observe: Fever of 101 or Higher, Shortness of breath Home Medications: Medications to take at Discharge Mycophenolate Mofetil [Cellcept] 500 mg PO BID 07/14/16 Amlodipine [Norvasc] 5 mg PO 2100 12/01/16 Tacrolimus Anhydrous [Prograf] 2 mg PO BID 12/02/16 Sulfamethoxazole/Trimethoprim [Sulfamethoxazole-Tmp Ss Tablet] 1 tab PO DAILY 07/13/17 Lactobacillus Acidophilus [Acidophilus] 1 tab PO BID #60 tab 07/18/17 Rivaroxaban [Xarelto] 20 mg PO DAILY 08/17/17 Guaifenesin/Codeine [Robitussin AC] 10 ml PO Q6H PRN PRN 3 Days #100 ml 08/18/17 Oxycodone [Oxyir] 5 mg PO Q6H PRN 3 Days #12 tablet 08/18/17 Following Prescrptions Were Given to Patient: Guaifenesin/Codeine [Robitussin AC] 10 ml PO Q6H PRN PRN 3 Days #100 ml PRN Reason: cough Oxycodone [Oxyir] 5 mg PO Q6H PRN 3 Days #12 tablet PRN Reason: Mod-Severe Pain (4-02/09) Primary Care Physician: Mike Bella MD [Primary Care Provider] - Within 2 Weeks Patient Instructions: ED Chest Pain NonCardiac Disposition: Home Minutes spent on discharge:: 25 Patient Condition:: Good Medical Necessity - Tobacco Use Smoking Status: Never smoker Tobacco Use: Non-smoker Meaningful Use Info Meaningful Use Diagnoses (Choose all that apply): None applicable Code Visit OBSV E AND M: 89425 Observation care discharge 08/18/17 1211 <Electronically signed by Ambrosio Solis DO> Date Ambrosio Solis DO Cosigner Signature (if applicable): Date CC: Ambrosio Solis DO; Mike Bella MD Signed DISCHARGE INSTRUCTION Observed: 08/18/2017 Status: F Source: [place] 12:07 PM [facility] REPOSITORY [facility] Medical Records Department [address] [place] [address] Instructions for Home/Discharge Instructions 08/18/17 1206 MR#: [id number] Acct: [id number] Name: SKYLER PINZON Rep #: [id number] : 1965 52 From: Ambrosio Solis DO PCP: Mike Bella MD Status: ADM PILY - Discharge Diagnoses Current Active Problems: Current Active and Chronic Problems Right-sided chest pain (Acute) Nonproductive cough (Acute) You will use the following diet at home:: No restrictions Your food should be the consistency of: Regular Your liquids should be the consistency of: Regular/Thin Discharge Activity: Return to Normal Activity Call your doctor if you observe: Fever of 101 or Higher, Shortness of breath Instructions: ED Chest Pain NonCardiac Allergies/Adverse Reactions: Allergies No Known Allergies Allergy (Verified 08/17/17 23:44) Medications to take at Discharge Mycophenolate Mofetil [Cellcept] 500 mg PO BID 07/14/16 Amlodipine [Norvasc] 5 mg PO 2100 12/01/16 Tacrolimus Anhydrous [Prograf] 2 mg PO BID 12/02/16 Sulfamethoxazole/Trimethoprim [Sulfamethoxazole-Tmp Ss Tablet] 1 tab PO DAILY 07/13/17 Lactobacillus Acidophilus [Acidophilus] 1 tab PO BID #60 tab 07/18/17 Rivaroxaban [Xarelto] 20 mg PO DAILY 08/17/17 Guaifenesin/Codeine [Robitussin AC] 10 ml PO Q6H PRN PRN 3 Days #100 ml 08/18/17 Oxycodone [Oxyir] 5 mg PO Q6H PRN 3 Days #12 tablet 08/18/17 The following prescriptions were given: Guaifenesin/Codeine [Robitussin AC] 10 ml PO Q6H PRN PRN 3 Days #100 ml PRN Reason: cough Oxycodone [Oxyir] 5 mg PO Q6H PRN 3 Days #12 tablet PRN Reason: Mod-Severe Pain (4-10/10) Primary Care Physician: Mike Bella MD [Primary Care Provider] - Within 2 Weeks Proposed Discharge Date: 08/18/17 08/18/17 4240 <Electronically signed by Ambrosio Solis DO> Date Ambrosio Solis DO CC: Mike Bella MD Observed: 08/18/2017 Status: F Source: [place] RESPIRATORY PANEL 5:05 AM [facility] MOLECULAR REPOSITORY RP PANEL ADENOVIRUS Not Detected HUMAN METAPHNEUMO Not Detected INFLUENZA A Not Detected INFLUENZA A (SUBTYPE H1) Not Detected INFLUENZA A (SUBTYPE H3) Not Detected INFLUENZA B Not Detected PARAINFLUENZA 1 Not Detected PARAINFLUENZA 2 Not Detected PARAINFLUENZA 3 Not Detected PARAINFLUENZA 4 Not Detected RHINOVIRUS Not Detected RSV A Not Detected RSV B Not Detected NAAT METHOD Testing was performed using nucleic acid amplification Performed By: #### [id number] #### [facility] [address] [facility] [address] TROPONIN-I Collected: 08/18/2017 Status: F Source: [place] 5:00 AM [facility] REPOSITORY Order Comment: 'TROP' Serial specimen #1, #2, #3, or #4: 1 TYPE CODE TESTS RESULT OUT OF RANGE REFERENCE UNITS LAB L501.4010 <0.06 ng/mL Normal < 0.02 TROPONIN-I Result Comment: TROPONIN-I EXPECTED VALUES <0.05 NEGATIVE 0.06 - 0.59 AT RISK OF TX > OR = 0.60 SUGGEST TX Performed By: #### L501.4010 #### [facility] [address] [place], [address] EMERGENCY DEPARTMENT Observed: 08/18/2017 Status: F Source: [place] SUMMARY 4:40 AM [facility] REPOSITORY [facility] Medical Records Department [address] [place] [address] Emergency Department Summary 08/18/17 0003 MR#: [id number] Acct: [id number] Name: SKYLER PINZON Rep #: [id number] : 1965 52 From: Sally Simon MD PCP: Mike Bella MD Status: ADM PILY - ER Visit Summary Date of Service: 08/18/17 Chief Complaint: Chest pain History of Present Illness: The patient is a 52 M with history of pulmonary embolism and renal transplant who presents for sudden onset of left-sided chest pain 2 hours prior to presentation. Patient was walking home from work at onset. Pain is continuous and sharp, located in the left chest, and nonradiating. Patient has associated shortness of breath and has had a cough for a few days. Sister states he has recently had a cold. He is on Xarelto for a pulmonary embolism, diagnosed 3 weeks ago. Has not missed any doses. He had a kidney transplant 16 months ago. He has been having hematuria. Patient denies fever, vomiting, diarrhea, dysuria. Physical Examination: Vital signs: afebrile, hemodynamically stable, no hypoxia on room air General: well nourished, well developed, appears uncomfortable Skin: warm, dry, flushed, no rash, no pallor HEENT: normocephalic and atraumatic; PERRL, EOMI, moist mucous membranes Cardiovascular: tachycardic rate and regular rhythm without murmurs, no peripheral edema, 2+ pulses all distal extremities Respiratory: No increased work of breathing, lungs have mild wheezing/rhonchi on right Abdominal: Abdomen is soft, tender in LUQ, with normoactive bowel sounds, no guarding or rebound, no masses MSK: Moves all extremities, no deformities, normal strength, fistula in right forearm Neuro: Awake and alert, oriented 4. No facial droop, sensation and motor function intact and symmetric, horizontal nystagmus with forward gaze Test Results: Abnormal Lab Results WBC 6.5 RBC 4.60 Hgb 13.2 Hct 40.7 MCV 88.5 MCH 28.7 MCHC 32.4 RDW 14.4 RDW Differential 46.0 H WBC RBC Hgb Hct MCV MCH MCHC RDW RDW Differential Plt Count MPV Emergency Department Course and Treatment: Patient was given IV fluids and morphine with Zofran for his chest pain. EKG showed a sinus rhythm without any ischemia or ectopy. Labs showed negative troponin. No leukocytosis. Renal function is at patient's baseline. Urinalysis positive for hematuria as reported in history by sister. Chest x-ray showed no infiltrates or effusions. Patient did have the adventitious sounds noted on the right trevizo on auscultation, which may indicate a viral respiratory process or a pneumonia that is not evident on chest radiograph. 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 He received additional morphine without improvement. Given patient's intractable chest pain, mild tachycardia with concern for possible respiratory infection, and patient's complex medical history, he was discussed with the hospitalist for admission for further management of his chest pain. We discussed empiric antibiotic treatment for possible pneumonia and the decision was made to not give antibiotics at this time. Patient admitted to telemetry for further workup and management. Treatment Plan: [] Disposition: [] Impression: Intractable chest pain, pleurisy This note was generated with [employer] dictation software. It may contain incorrect words, spelling, and punctuation that were not noted in review of the chart prior to signing ED Disposition - Plan for ED Patient: Disposition: Acute Care Hospital [facility] Chief Complaint: Chest Pain What to do if you have Problems For any increased pain, shortness of breath, bleeding, nausea or vomiting, chest pain, or any unexpected problems, contact your Primary Care Provider. Call [facility] ([phone]) or report to the closest Emergency Room. Call 911 if necessary. 08/18/17 0440 <Electronically signed by Sally Simon MD> Date Sally Simon MD Cosigner Signature (If Indicated): Date CC: Mike Bella MD HISTORY AND PHYSICAL Observed: 08/18/2017 Status: F Source: [place] EXAM 4:06 AM [facility] REPOSITORY [facility] Medical Records Department [address] [place] [address] History and Physical 08/18/17 0351 MR#: [id number] Acct: [id number] Name: SKYLER PINZON Rep #: [id number] : 1965 52 From: Luis Armando Chapman DO PCP: Mike Bella MD Status: ADM PILY Y Location: [place] [address] Problem List (1) Right-sided chest pain Status: Acute (2) Nonproductive cough Status: Acute History of Present Illness Date of Admission: 08/18/17 Chief Complaint: Nonproductive cough, right sided chest pain The patient is a 52 year old M who was seen in the emergency room at [facility] after being brought in by his sister due to complaints of right sided chest pain-sharp in nature-and nonproductive cough. Symptoms started about 10 PM on 08/17/17, due to the patient's MRDD, history was obtained from the patient's sister who was present during the time of my examination. Evaluation in the emergency room included a chest x-ray which was negative for any infiltrates, labs were obtained showing a normal white blood cell count of 6.5, BUN was 24, creatinine is 1.67. Patient's urinalysis showed more than 100 RBCs and 10-25 WBCs. Lipase was 396. EKG showed a normal sinus rhythm without evidence of ischemic changes or injury pattern. Patient was given a total of 8 mg of morphine IV in the emergency room without resolution of his chest discomfort. On my examination, patient had expiratory wheezes scattered throughout both lung trevizo, I felt the patient's chest discomfort was atypical of cardiac pain but more likely be secondary to a pleurisy or upper respiratory tract infection. Due to the fact the patient lives alone, I felt it necessary to admit the patient for pain control and to perform a respiratory panel to make sure he did not have a viral illness. Patient is taking immunosuppressant drugs due to a renal transplant which he had 16 months ago. It should also be noted, that the patient had a pulmonary embolism diagnosed in July 2017 and has been on Xarelto since that time. Patient will be admitted for pleurisy with uncontrolled pain, aerosol treatments will be ordered, cardiac enzymes will be cycled, patient will have a respiratory panel ordered in the morning. Patient will be given IV morphine or p.o. OxyIR for pain Past Medical History Past Medical History (Chronic Problems): Chronic Problems Pulmonary infiltrate present on computed tomography (Chronic) CKD (chronic kidney disease), stage III (Chronic) Acute UTI (Chronic) Kidney transplant recipient (Chronic) Congenital nystagmus (Chronic) Mild MRDD (Chronic) DVT (deep venous thrombosis) (Chronic) Renal transplant, status post (Chronic) Neurogenic bladder disorder (Chronic) managed with cic Allergies No Known Allergies Allergy (Verified 08/17/17 23:44) Home Medications: Ambulatory Orders Medication Instructions Recorded Surgical History: - - Right kidney transplant [facility], dialysis access prior. Right upper extremity fistula Psychiatric History: No pertinent psych hx, - - MRDD Lives: Alone Smoking Status: Never smoker Tobacco Use: Non-smoker Alcohol: None Drugs: None - *Family History Maternal History Items: Hypertension Paternal History Items: Diabetes Review of Systems Comment: Complete review of systems was unobtainable from the patient due to MRDD, information was obtained from the patient's sister who is present at the time of my examination of the patient, patient was able to answer some questions appropriately VTE Information - Inpt Only VTE Present on Admission: No VTE Mechan Device Prophylaxis: None VTE Pharm Prophylaxis ordered?: No Reason prophylaxis not ordered:: Medical Contraindication - on Xarelto Patient Problems: Active and Suspected Problems Right-sided chest pain (Acute) Nonproductive cough (Acute) - Physical Exam General: Alert, Cooperative, Well developed, - - evidence of developmental delay present HEENT: Atraumatic, PERRLA, EOMI Oral: Moist Mucosa Neck: Supple, No JVD, Negative Carotid Bruits, No Nuchal Rigidity, Trachea Midline, Thyroid Normal Size and Texture Lungs: Normal air movement, No rhonchi, No rales, Wheezes - Scattered expiratory wheezes are noted bilaterally Cardiovascular: Regular rate, Regular Rhythm, Normal S1, Normal S2, No murmurs, No Ectopic Activity, PMI Normal, No rub noted, No Gallop Abdomen: Bowel Sounds Present, Soft, Non Tender, Non-Distended, No hernias noted Extremities: No clubbing, No cyanosis, No edema, Capillary Refill Less than 3 Seconds Skin: No rashes, No breakdown Musculoskeletal: Tenderness - There is tenderness to palpation over the patient's right lower chest wall area Neurological: Cranial nerves II-XII grossly intact, Neuro grossly intact, Sensory exam intact to light touch and pain, Coordination normal Psych/Mental Status: Flat Affect, - - Patient is alert, he answers most questions appropriately, there is evidence of developmental delay present Vital Signs Temp Pulse Resp BP Pulse Ox 98.2 F 105 H 18 132/84 H 93 08/17/17 23:40 08/18/17 03:08 08/18/17 03:08 08/18/17 03:08 08/18/17 03:08 Oxygen Flow Rate (L/min) 2 Oxygen Delivery Method Nasal Cannula Weight: 79 kg Body Mass Index (BMI) 23.6 Assessment/Plan Active and Suspected Problems Right-sided chest pain (Acute) Nonproductive cough (Acute) # 1 chest pain-probably pleuritic in nature-patient will be placed into observation status, respiratory panel will be obtained, patient will be given aerosol treatments, patient will be monitored for fever due to his use of antirejection drugs for his renal transplant. Cardiac enzymes will be cycled, he will be monitored on telemetry #2 chest wall pain-possibly secondary to coughing, analgesics will be administered as needed #3 recent pulmonary embolism-patient is currently taking Xarelto and according to the sister he is compliant with this medication #4 status post renal transplant proximally 16 months ago-patient will continue his current antirejection drugs #5 MRDD #6 hematuria-patient has a history of hematuria in the past, he is currently on Xarelto which may contribute to the hematuria, patient has no signs of active urinary tract infection at this time Code Visit OBSV E AND M: [id number] Initial observation care L3 08/18/17 0406 <Electronically signed by Luis Armando Chapman DO> Date Luis Armando Chapman DO Cosigner Signature: Date (if applicable) CC: Luis Armando Chapman DO; Mike Bella MD Signed URINALYSIS, COMPLETE Collected: 08/18/2017 Status: F Source: [place] 1:20 AM [facility] REPOSITORY Order Comment: COLOR OF URINE MAY AFFECT DIPSTICK RESULTS. How was Urine Obtained? CLEAN CATCH TYPE CODE TESTS RESULT OUT OF RANGE REFERENCE UNITS LAB L400.3000 Yellow COLOR Normal Brown LAB L400.3050 Clear Normal CLARITY Cloudy LAB L400.3200 Normal mg/dl Normal GLUCOSE, UR Normal LAB L400.3300 Negative mg/dL Normal BILIRUBIN URINE Negative LAB L400.3400 Negative mg/dl Normal KETONE UR Negative LAB L400.3465 1.002-1.030 Normal SP.GR. DIPSTX 1.015 LAB L400.3550 5.0 - 8.0 pH UR Normal 5.0 LAB L400.3600 Negative mg/dl High PROT DIPSTX 100 LAB L400.3700 Normal mg/dl Normal UROBILI Normal LAB L400.3750 Negative Normal NITRITE UR Negative LAB L400.3780 Negative /ul High OCCULT BLOOD-UR 250 LAB L400.3800 Negative /ul High LEUK ESTERASE 100 LAB L400.4050 0-5 /hpf WBC Normal 10-25 SEEN LAB L400.4100 0-5 /hpf > Normal RBC-UA 100 SEEN Result Comment: Microscopic field is filled. Other elements may be obscured. LAB L400.4150 0-5 /hpf Normal SQUAM EPI 0-5 SEEN LAB L400.4300 None Seen /hpf Normal BACTERIA 0 SEEN LAB L400.4350 <or=2+ /hpf Normal MUCUS, URINE 0 SEEN Performed By: #### L400.0001 #### [facility] [address] [place], [address] Observed: 08/18/2017 Status: F Source: [place] CULTURE, URINE 1:20 AM [facility] REPOSITORY Has pt arrived? Y Urine Culture ORGANISM 1: Mixed Gram Positive Organisms [facility] Count 11,000-25,000 MIX CULTURE Mixed contaminants. Submit a new specimen if indicated. Performed By: #### M100.0650 #### [facility] [address] [place], [address] CHEST PA AND LATERAL Observed: 08/18/2017 Status: F Source: [place] 12:04 AM [facility] REPOSITORY [facility] Imaging Services [address] [place] [address] Chest PA and Lateral MR#: [id number] Acct: [id number] Name: SKYLER PINZON Rep #: [id number] : 1965 M 52 From: Iram Barr MD PCP: Mike Bella MD Status: REG ER Study: Chest PA and Lateral Date of Exam: 08/18/17 Exam# [id number] Ordering Dr: Sally Simon MD XR Chest 2 Views INDICATION: arrives with chest pain that started around 2200 tonight. c/o sob T nausea COMPARISON: July 28, 2017 TECHNIQUE: 2 views of the chest FINDINGS: Heart size and pulmonary vascularity are within normal limits. Lungs are mildly hyperinflated, otherwise clear. There is no evidence of focal airspace consolidation or pleural effusion. Osseous structures are grossly unremarkable. RAD/Chest PA and Lateral IMPRESSION: No radiographic evidence of acute intrathoracic disease. at 0043 Reported and signed by: Iram Barr MD Electronically Signed: Iram Barr MD at 0:42 EDT Tel , Service support , CC: Sally Simon MD; Mike Bella MD Admitted Attorneys: Signed CBC W/DIFF, AUTOMATED Collected: 08/17/2017 Status: F Source: [place] 11:40 PM [facility] REPOSITORY TYPE CODE TESTS RESULT OUT OF RANGE REFERENCE UNITS LAB L100.1000 4.4-11.0 K/mm3 Normal WBC 6.5 LAB L100.1200 4.6-6.2 M/mm3 Normal RBC 4.60 LAB L100.1300 13.0-16.5 g/dl Normal HGB 13.2 LAB L100.1400 40-54 % Normal HCT 40.7 LAB L100.1500 80-94 fL Normal MCV 88.5 LAB L100.1600 27.0-32.0 pg Normal MCH 28.7 LAB L100.1700 32-36 g/gl Normal MCHC 32.4 LAB L100.1810 11.6-14.6 % Normal RDW CV 14.4 LAB L100.1820 35.1-43.9 fl High RDW SD 46.0 LAB L100.1900 150-450 K/mm3 Normal PLT 155 LAB L100.2000 6.2-12.0 fl Normal MPV 11.2 LAB L100.2100 47-70 % Normal NEUT% 66.4 LAB L100.2200 19-41 % Low LY% 16.8 LAB L100.2300 0-10 % High MONO% 13.9 LAB L100.2400 0-5 % Normal EO% 2.0 LAB L100.2500 0-1 % Normal BASO% 0.6 LAB L100.2550 0.0-0.9 % Normal IM GRAN % 0.300 Result Comment: IG% - Immature Granulocytes (promyelocytes, myelocytes and metamyelocytes) > 1% indicates that a LEFT SHIFT is Present. LAB L100.2620 2.0-7.7 X10 3/uL Normal Absolute Neut 4.3 LAB L100.2720 0.83-4.51 X10 3/ul Normal Absolute Lymph 1.10 Performed By: #### L100.0100 #### [facility] [address] [place], [address] PROTHROMBIN TIME W/INR Collected: 08/17/2017 Status: F Source: [place] 11:40 PM [facility] REPOSITORY TYPE CODE TESTS RESULT OUT OF RANGE REFERENCE UNITS LAB L300.4150 11.7-14.9 SECONDS High PROTIME 16.4 LAB L300.4200 Normal INR 1.3 Performed By: #### L300.3900, L300.4310 #### [facility] [address] [place], [address] PARTIAL THROMBOPLAST Collected: 08/17/2017 Status: F Source: [facility] 11:40 PM [facility] REPOSITORY TYPE CODE TESTS RESULT OUT OF RANGE REFERENCE UNITS LAB L300.4310 24.1-36.2 Seconds Normal PTT 33.6 Performed By: #### L300.3900, L300.4310 #### [facility] [address] [place], [address] COMPREHENSIVE METABOLIC Collected: 08/17/2017 Status: F Source: [place] PROFIL 11:40 PM [facility] REPOSITORY Order Comment: 'TROP' Serial specimen #1, #2, #3, or #4: 1 TYPE CODE TESTS RESULT OUT OF RANGE REFERENCE UNITS LAB L501.0100 74-106 mg/dL Normal GLU 90 Result Comment: Please note revised GLUCOSE reference range effective 2017. LAB L501.1000 7-18 mg/dL High BUN 24 LAB L501.1100 0.70-1.30 mg/dL High CREAT,SERUM 1.67 Result Comment: The validity of the calculated GFR AND GFRAA in patients over 70 years has not been determined. Clinical correlation is essential. LAB L501.1110 >60 mL/min Low EST GFR 47 Result Comment: Non- GFR Calc LAB L501.1115 >60 mL/min Low EST GFR - AA 56 Result Comment: GFR Calc LAB L501.1255 ml/min Normal Estimated CRCL 58.08 LAB L501.1300 10-20 RATIO Normal BUN/CRE 14.4 LAB L501.1500 6.4-8. g/dL Normal 2 T PROT 7.1 LAB L501.1800 3.2-5. g/dL Normal 0 ALB 3.9 LAB L501.1950 2.2-4. g/dL Normal 2 GLOB 3.2 LAB L501.2000 0.9-2. RATIO Normal 4 A/G 1.2 LAB L501.2200 8.5-10 mg/dL Low .1 CA 7.7 LAB L501.4100 15-37 U/L Normal AST 21 LAB L501.4305 45-117 U/L Normal ALK P 54 LAB L501.4405 16-61 U/L Normal ALT 23 LAB L501.4600 0.20-1 mg/dL Normal .00 T BILI 0.70 LAB L501.5300 136-14 mmol/L Normal 5 NA 142 LAB L501.5600 3.5-5. mmol/L Normal 1 K 3.8 LAB L501.5900 98-107 mmol/L High CL 109 LAB L501.6100 21.0-3 mmol/L Normal 2.0 CO2 22.0 LAB L501.6200 5-15 Normal GAP 11 Performed By: #### L500.4050, L501.2450, L501.4010 #### [facility] [address] [place], [place], [address] LIPASE Collected: 08/17/2017 Status: F Source: [place] 11:40 PM [facility] REPOSITORY Order Comment: 'TROP' Serial specimen #1, #2, #3, or #4: 1 TYPE CODE TESTS RESULT OUT OF REFERENCE UNITS RANGE LAB L501.2450 73-393 U/L High LIPASE 396 Performed By: #### L500.4050, L501.2450, L501.4010 #### [facility] [address] [place], [address] TROPONIN-I Collected: 08/17/2017 Status: F Source: [place] 11:40 PM [facility] REPOSITORY Order Comment: 'TROP' Serial specimen #1, #2, #3, or #4: 1 TYPE CODE TESTS RESULT OUT OF RANGE REFERENCE UNITS LAB L501.4010 <0.06 ng/mL Normal < 0.02 TROPONIN-I Result Comment: TROPONIN-I EXPECTED VALUES <0.05 NEGATIVE 0.06 - 0.59 AT RISK OF [place] > OR = 0.60 SUGGEST [place] Performed By: #### L500.4050, L501.2450, L501.4010 #### [facility] [address] [place] [place], [address] 12 LEAD ELECTROCARDIOGRAM Observed: 07/29/2017 Status: F Source: [place] 3:19 PM [facility] REPOSITORY [facility] Cardiovascular Services [address] [place] [address] 12 Lead EKG 07/28/17 0143 MR#: [id number] Acct: [id number] Name: SKYLER PINZON Rep #: [id number] : 1965 52 From: Rolf Mon MD Attending Dr: Status: DEP ER Ordering Dr: Jose Armando Mosqueda MD Date: 07/28/17 Location: ED Sex: M C Admitted: Test Reason : CP Blood Pressure : / mmHG Vent. Rate : 099 BPM Atrial Rate : 099 BPM P-R Int : 128 ms QRS Dur : 082 ms QT Int : 370 ms P-R-T Axes : 061 027 064 degrees QTc Int : 474 ms Normal sinus rhythm Normal ECG Confirmed by ROLF MON MD ([id number]), associate entertainment editor IRAM CONKLIN ([id number]) on 07/29/2017 3:19:34 PM Referred By: SARA RAO Confirmed By:ROLF MON MD 07/29/17 1519 Date Rolf Mon MD CC: Jose Armando Mosqueda MD; Mike Bella MD Signed EMERGENCY DEPARTMENT Observed: 07/28/2017 Status: F Source: [place] SUMMARY 4:05 AM [facility] REPOSITORY [facility] Medical Records Department [address] [place] [address] Emergency Department Summary 07/28/17 0303 MR#: [id number] Acct: [id number] Name: SKYLER PINZON Rep #: [id number] : 1965 52 From: Jose Armando Mosqueda MD PCP: Mike Bella MD Status: DEP ER - ER Visit Summary Date of Service: 07/28/17 Chief Complaint: [] Chest pain History of Present Illness: The patient is a 52 M recently diagnosed with a pulmonary embolism earlier last week on Xarelto with chest pain that started 9 PM tonight. It is a sharp pain in the middle of his chest. No home treatment. Comes in for further evaluation. Physical Examination: Vital signs reviewed General: Well-nourished well-developed Head: Normocephalic atraumatic Eyes: Pupils equal round and reactive to light extraocular movements intact ENT: TMs clear no hemotympanum no trauma Neck: Nontender full range of motion Cardiovascular: Regular rate rhythm no murmurs normal S1-S2 Respiratory: No distress clear to auscultation bilaterally chest nontender Abdomen: Soft nontender nondistended normal bowel sounds no masses Back: Nontender no CVA tenderness Extremities: Nontender active range of motion 4 extremities no trauma Skin: Normal color no trauma Neuro alert oriented cranial nerves II through XII intact normal strength sensation reflexes Test Results: [] Emergency Department Course and Treatment: [] EKG shows sinus 99 with no ischemia. Troponin negative. Normal except white count 4.0. Chemistries normal except creatinine 1.8. This is up from 1.4. X-ray shows no acute disease. At this time I feel the patient likely has pain from his pulmonary embolism. Given a dose of morphine with good resolution. Will follow-up as an outpatient. Treatment Plan: [] Disposition: [] Impression: [] Pulmonary embolism with chest pain This note was generated with [employer] dictation software. It may contain incorrect words, spelling, and punctuation that were not noted in review of the chart prior to signing ED Disposition - Plan for ED Patient: Chief Complaint: Chest Pain Referrals: Mike Bella MD [Primary Care Provider] - What to do if you have Problems For any increased pain, shortness of breath, bleeding, nausea or vomiting, chest pain, or any unexpected problems, contact your Primary Care Provider. Call [facility] ([phone]) or report to the closest Emergency Room. Call 911 if necessary. 07/28/17404 <Electronically signed by Jose Armando Mosqueda MD> Date Jose Armando Mosqueda MD Cosigner Signature (If Indicated): Date CC: Mike Bella MD DISCHARGE INSTRUCTION Observed: 07/28/2017 Status: F Source: [place] 4:05 [facility] REPOSITORY [facility] Medical Records Department [address] [place] [address] Discharge Instruction 07/28/17304 MR#: [id number] Acct: [id number] Name: SKYLER PINZON Rep #: [id number] : 1965 52 From: Jose Armando Mosqueda MD PCP: Mike Bella MD Status: DEP ER ED Disposition - Plan for ED Patient: Disposition: Home or Assisted Living Chief Complaint: Chest Pain Instructions: Pulmonary Embolism Referrals: Mike Bella MD [Primary Care Provider] - What to do if you have Problems For any increased pain, shortness of breath, bleeding, nausea or vomiting, chest pain, or any unexpected problems, contact your Primary Care Provider. Call [facility] ([phone]) or report to the closest Emergency Room. Call 911 if necessary. 07/28/17404 <Electronically signed by Jose Armando Mosqueda MD> Date Jose Armando Mosqueda MD Cosigner Signature (If Indicated): Date CC: Mike Bella MD CBC W/DIFF, AUTOMATED Collected: 07/28/2017 Status: C Source: [place] 2:25 AM [facility] REPOSITORY TYPE CODE TESTS RESULT OUT OF RANGE REFERENCE UNITS LAB L100.1000 4.4-11.0 K/mm3 Low WBC 4.0 LAB L100.1200 4.6-6.2 M/mm3 Normal RBC 4.97 LAB L100.1300 13.0-16.5 g/dl Normal HGB 13.9 LAB L100.1400 40-54 % Normal HCT 43.3 LAB L100.1500 80-94 fL Normal MCV 87.1 LAB L100.1600 27.0-32.0 pg Normal MCH 28.0 LAB L100.1700 32-36 g/gl Normal MCHC 32.1 LAB L100.1810 11.6-14.6 % Normal RDW CV 13.9 LAB L100.1820 35.1-43.9 fl High RDW SD 44.5 LAB L100.1900 150-450 K/mm3 Normal PLT 324 LAB L100.2000 6.2-12.0 fl Normal MPV 10.0 LAB L100.2100 47-70 % Normal NEUT% 54.9 LAB L100.2200 19-41 % Normal LY% 20.0 LAB L100.2300 0-10 % High MONO% 20.4 LAB L100.2400 0-5 % Normal EO% 1.7 LAB L100.2500 0-1 % Normal BASO% 1.0 LAB L100.2550 0.0-0.9 % High IM GRAN % 2.000 Result Comment: IG% - Immature Granulocytes (promyelocytes, myelocytes and metamyelocytes) > 1% indicates that a LEFT SHIFT is Present. LAB L100.2620 2.0-7.7 X10 3/uL Normal Absolute Neut 2.2 LAB L100.2720 0.83-4.51 X10 3/ul Low Absolute Lymph 0.80 LAB L100.9900 Normal PATH REV Reviewed Result Comment: AMENDED REPORT 07/28/17 1204 PATH REV previously reported as: August Performed By: #### L100.0100 #### [facility] [address] [place], [place], [address] BASIC METABOLIC Collected: 07/28/2017 Status: F Source: [place] PROFILE (BMP) 2:25 AM [facility] REPOSITORY Order Comment: 'TROP' Serial specimen #1, #2, #3, or #4: 1 TYPE CODE TESTS RESULT OUT OF RANGE REFERENCE UNITS LAB L501.0100 74-106 mg/dL Normal GLU 94 Result Comment: Please note revised GLUCOSE reference range effective 2017. LAB L501.1000 7-18 mg/dL High BUN 30 LAB L501.1100 0.70-1.30 mg/dL High CREAT,SERUM 1.83 Result Comment: The validity of the calculated GFR AND GFRAA in patients over 70 years has not been determined. Clinical correlation is essential. LAB L501.1110 >60 mL/min Low EST GFR 42 Result Comment: Non- GFR Calc LAB L501.1115 >60 mL/min Low EST GFR - AA 51 Result Comment: GFR Calc LAB L501.1255 ml/min Normal Estimated CRCL 53.01 LAB L501.1300 10-20 RATIO Normal BUN/CRE 16.4 LAB L501.2200 8.5-10 mg/dL Low .1 CA 8.1 LAB L501.5300 136-14 mmol/L Normal 5 NA 141 LAB L501.5600 3.5-5. mmol/L Normal 1 K 4.0 LAB L501.5900 98-107 mmol/L High CL 111 LAB L501.6100 21.0-3 mmol/L Normal 2.0 CO2 21.0 LAB L501.6200 5-15 Normal GAP 9 Performed By: #### L500.2500, L501.4010 #### [facility] [address] [place], [place], [address] TROPONIN-I Collected: 07/28/2017 Status: F Source: [place] 2:25 AM [facility] REPOSITORY Order Comment: 'TROP' Serial specimen #1, #2, #3, or #4: 1 TYPE CODE TESTS RESULT OUT OF RANGE REFERENCE UNITS LAB L501.4010 <0.06 ng/mL Normal < 0.02 TROPONIN-I Result Comment: TROPONIN-I EXPECTED VALUES <0.05 NEGATIVE 0.06 - 0.59 AT RISK OF [place] > OR = 0.60 SUGGEST TX Performed By: #### L500.2500, L501.4010 #### [facility] [address] [place], [address] CHEST 1 VIEW Observed: 07/28/2017 Status: F Source: [place] (PORTABLE) 2:08 AM [facility] REPOSITORY [facility] Imaging Services [address] [place] [address] Chest 1 View (Portable) MR#: [id number] Acct: [id number] Name: SKYLER PINZON Rep #: [id number] : 1965 M 52 From: Peter Gamez PCP: Mike Bella MD Status: REG ER Study: Chest 1 View (Portable) Date of Exam: 07/28/17 Exam# [id number] Ordering Dr: Jose Armando Mosqueda MD STUDY: X-RAY CHEST REASON FOR EXAM: Male, 52 years old. Chest pain. TECHNIQUE: AP portable chest. COMPARISON: July 20, 2017. CT chest July 20, 2017. FINDINGS: Transversely oriented fine lines at the lung bases suggestive of mild vascular congestion. No focal infiltrates or effusions. There is probably bibasilar subsegmental atelectasis. Normal size heart. Normal mediastinum and alton. Normal visualized pulmonary arteries. Normal visualized aortic arch and descending thoracic aorta. Old mild compression fractures in the midthoracic spine. Normal visualized ribs, clavicles, and shoulders. There is no demonstrated abnormality of the visualized soft tissue structures of the upper abdomen. RAD/Chest 1 View (Portable) IMPRESSION: Mild vascular congestion suggested on the prior CT scan unchanged. Bibasilar subsegmental atelectasis. Electronically Signed: Peter Gamez MD at 2:34 EDT , Service support , CC: Jose Armando Mosqueda MD; Mike Bella MD Admitted Attorneys: Signed 12 LEAD ELECTROCARDIOGRAM Observed: 07/23/2017 Status: F Source: [place] 1:47 PM [facility] REPOSITORY [facility] Cardiovascular Services [address] [place] [address] 12 Lead EKG 07/20/17 205 MR#: [id number] Acct: [id number] Name: SKYLER PINZON Rep #: [id number] : 1965 52 From: Rolf Mon MD Attending Dr: Cleopatra Rey MD Status: DIS PILY Ordering Dr: Brooks Fallon DO Date: 07/20/17 Location: [facility] Sex: M C Admitted: 07/21/17 Test Reason : CP Blood Pressure : / mmHG Vent. Rate : 111 BPM Atrial Rate : 111 BPM P-R Int : 122 ms QRS Dur : 086 ms QT Int : 344 ms P-R-T Axes : 045 008 039 degrees QTc Int : 467 ms Sinus tachycardia Inferior infarct , age undetermined Abnormal ECG Confirmed by SUSAN MORENO, ROLF ([id number]), associate entertainment editor IRAM CONKLIN ([id number]) on 07/23/2017 1:46:52 PM Referred By: GIA Confirmed By:ROLF MON MD 07/23/17 1346 Date Rolf Mon MD CC: Mike Bella MD; Brooks Fallon DO Signed 12 LEAD ELECTROCARDIOGRAM Observed: 07/23/2017 Status: F Source: [place] 1:46 PM [facility] REPOSITORY [facility] Cardiovascular Services [address] [place] [address] 12 Lead EKG 07/21/17 0020 MR#: [id number] Acct: [id number] Name: SKYLER PINZON Rep #: [id number] : 1965 52 From: Rolf Mon MD Attending Dr: Cleopatra Rey MD Status: DIS PILY Ordering Dr: Brooks Fallon DO Date: 07/20/17 Location: [facility] Sex: M C Admitted: 07/21/17 Test Reason : REPEAT Blood Pressure : / mmHG Vent. Rate : 090 BPM Atrial Rate : 090 BPM P-R Int : 128 ms QRS Dur : 078 ms QT Int : 378 ms P-R-T Axes : 063 013 046 degrees QTc Int : 462 ms Normal sinus rhythm Normal ECG Confirmed by ROLF MON MD ([id number]), associate entertainment editor IRAM CONKLIN ([id number]) on 07/23/2017 1:46:08 PM Referred By: GIA Confirmed By:ROLF MON MD 07/23/17 1346 Date Rolf Mon MD CC: Mike Bella MD; Brooks Fallon DO Signed DISCHARGE SUMMARY Observed: 07/22/2017 Status: F Source: [place] 4:55 PM [facility] REPOSITORY [facility] Medical Records Department [address] [place] [address] Discharge Summary 07/21/17 1236 MR#: [id number] Acct: [id number] Name: SKYLER PINZON Rep #: [id number] : 1965 52 From: Bharti Aly DEHORNER-C PCP: Mike Bella MD Status: DIS PILY Y Location: [place] [id number] ADDENDUM by Cleopatra Rey MD on 07/22/17 at 1655 Code Visit OBSV E AND M: [id number] Observ/hosp same date L3 07/22/17 1655 <Electronically signed by Cleopatra Rey MD> Date Cleopatra Rey MD cc: DEHORNER-C Bharti Aly; Cleopatra Rye MD; Mike Bella MD * Signed Discharge Date and Diagnosis Date of Admission: 07/21/17 Date of Discharge: 07/21/17 - Primary Discharge Diagnosis Active and Suspected Problems 1. Acute pulmonary embolism - Secondary Discharge Diagnosis Chronic Problems Pulmonary infiltrate present on computed tomography (Chronic) CKD (chronic kidney disease), stage III (Chronic) Acute UTI (Chronic) Kidney transplant recipient (Chronic) Congenital nystagmus (Chronic) Mild MRDD (Chronic) DVT (deep venous thrombosis) (Chronic) Renal transplant, status post (Chronic) Neurogenic bladder disorder (Chronic) managed with cic Hospital Course and Treatment Imaging Results: Diagnostic Data Chest X-Ray 07/20/17 21:03 IMPRESSION: Bibasilar nonspecific opacities may reflect underlying atelectasis and/or evolving pneumonia. Electronically Signed: Sheyla Long MD at 21:56 EDT Tel , Service support , Chest CTA 07/20/17 22:09 IMPRESSION: Pulmonary emboli within the right middle lobe. Bilateral groundglass opacities associated with dependent consolidation within the lower lobes likely reflects some combination of edema and/or pneumonia. Bilateral lower lobe atelectasis. Atherosclerosis. N.B. : The above information has been verbally conveyed by Sheyla Long MD to , Covering Physician, on 07/20/2017 23:43:28 (ET). Electronically Signed: Sheyla Long MD at 23:43 EDT Tel , Service support , N.B. : The above information has been verbally conveyed by Sheyla Long MD to , Covering Physician, on 07/20/2017 23:43:28 (ET). Operations: None Procedures: None Summary of Care Provided: The patient is a 52 year old M who presented to the emergency room 07/21/2017 due to chest pain. Chest CTA showed pulmonary emboli within the right middle lobe and pulmonary infiltrates. Recent CT of abdomen 07/16/2017 also showed evidence of infiltrates at that time. Patient denies cough. No fever, no leukocytosis. Speech therapy evaluated patient for concern for aspiration. Lungs clear. No signs of aspiration were noted. Do not suspect pneumonia. Patient was started on Xarelto for pulmonary embolism. He will take 50 mg twice daily for 21 days followed by 20 mg daily. Prescription was sent for the first 21 days of treatment. Patient will need to follow with primary care physician in 1 week who can continue prescription thereafter. Patient was recommended to follow-up with hematology as outpatient to assess for causes of unprovoked clot. Troponin negative. EKG without evidence of ischemia. Patient was recently admitted for acute Enterobacter aerogenes cystitis and will continue Cipro as previously prescribed. Patient's other past medical history includes chronic renal failure stage III on chronic immunosuppressive therapy with CellCept and tacrolimus, history of DVT, mild MRDD, hypertension. General: Alert, Oriented x3, Cooperative, No apparent distress HEENT: Atraumatic, PERRLA, EOMI, Normocephalic Neck: Supple, No JVD, Negative Carotid Bruits Lungs: Clear to auscultation, Normal air movement Cardiovascular: Regular rate, Regular Rhythm, Normal S1, Normal S2, No murmurs Abdomen: Bowel Sounds Present, Soft, nontender Extremities: No clubbing, No cyanosis, No edema, Capillary Refill Less than 3 Seconds, Right forearm fistulogram Skin: No rashes, No breakdown Musculoskeletal: No Tenderness to Palpation of Joints or Extremities Neurological: Cranial nerves II-XII grossly intact, Neuro grossly intact Psych/Mental Status: Normal Affect, Appropriate Patient seen and examined prior to discharge. Physical assessment as noted above. Patient has not required supplemental oxygen during admission. He is stable for discharge home with recommendations as noted above. This patient was seen by JASS Arauz under the supervision of Dr. Rey. Discharge Diet: No Restrictions Discharge Activity: Return to Normal Activity Call your doctor if you observe: Shortness of breath, Dizziness, Fainting spells, Chest pain Home Medications: Medications to take at Discharge Mycophenolate Mofetil [Cellcept] 500 mg PO BID 07/14/16 Amlodipine [Norvasc] 5 mg PO 2100 12/01/16 Tacrolimus Anhydrous [Prograf] 2 mg PO BID 12/02/16 Sulfamethoxazole/Trimethoprim [Sulfamethoxazole-Tmp Ss Tablet] 1 tab PO DAILY 07/13/17 Ciprofloxacin [Cipro] 500 mg PO BID #16 tab 07/18/17 Lactobacillus Acidophilus [Acidophilus] 1 tab PO BID #60 tab 07/18/17 Rivaroxaban [Xarelto] 15 mg PO BIDCM #42 tab 07/21/17 Following Prescrptions Were Given to Patient: Rivaroxaban [Xarelto] 15 mg PO BIDCM #42 tab Primary Care Physician: Mike Bella MD [Primary Care Provider] - Please follow up with your Primary Care Physician in: 1 Week Please Follow Up With: Mariann Winters MD - Hematology When: 1-2 Weeks Please Follow Up With: Nakul Crenshaw MD When: As scheduled Please Follow Up With: Kidney doctor When: As scheduled Disposition: Home Minutes spent on discharge:: 37 Patient Condition:: Stable Medical Necessity - Tobacco Use Smoking Status: Never smoker Tobacco Use: Non-smoker Meaningful Use Info Meaningful Use Diagnoses (Choose all that apply): VTE - VTE Anticoag overlap given w/in hospital stay or rx'd at dc?: Yes Pt receive overlap for 5 days?: No Reason overlap not ordered, prescribed, or given for 5 days: Treatment Not Indicated 07/21/17 1250 <Electronically signed by Bharti CASEC> Date Bharti CASEC 07/21/17 1253<Electronically signed by Cleopatra Rey MD> Cosigner Signature (if applicable): Date Cleopatra Rey MD CC: DEHORNER-C Bharti Aly; Cleopatra Rey MD; Mike Bella MD Signed CBC-COMPLETE BLOOD CNT Collected: 07/22/2017 Status: F Source: MELVIN NO DIFF 8:12 AM [facility] REPOSITORY TYPE CODE TESTS RESULT OUT OF RANGE REFERENCE UNITS LAB L100.1000 4.4-11.0 K/mm3 Low WBC 4.1 LAB L100.1200 4.6-6.2 M/mm3 Normal RBC 5.11 LAB L100.1300 13.0-16.5 g/dl Normal HGB 14.4 LAB L100.1400 40-54 % Normal HCT 46.2 LAB L100.1500 80-94 fL Normal MCV 90.4 LAB L100.1600 27.0-32.0 pg Normal MCH 28.2 LAB L100.1700 32-36 g/gl Low MCHC 31.2 LAB L100.1810 11.6-14.6 % Normal RDW CV 14.5 LAB L100.1820 35.1-43.9 fl High RDW SD 47.8 LAB L100.1900 150-450 K/mm3 Normal PLT 283 LAB L100.2000 6.2-12.0 fl Normal MPV 10.0 Performed By: #### L100.0500 #### [facility] [address] [place], [place], [address] RENAL PROFILE Collected: 07/22/2017 Status: F Source: [place] 8:12 AM [facility] REPOSITORY TYPE CODE TESTS RESULT OUT OF RANGE REFERENCE UNITS LAB L501.0100 74-106 mg/dL High GLU 111 Result Comment: Fasting Glucose result from 100 to 125 mg/dL suggests IMPAIRED HOMEOSTASIS per A.D.A. criteria. Please note revised GLUCOSE reference range effective 2017. LAB L501.1000 7-18 mg/dL Normal BUN 14 LAB L501.1100 0.70-1.30 mg/dL High CREAT,SERUM 1.43 Result Comment: The validity of the calculated GFR AND GFRAA in patients over 70 years has not been determined. Clinical correlation is essential. LAB L501.1110 >60 mL/min Low EST GFR 56 Result Comment: Non- GFR Calc LAB L501.1115 >60 mL/min Normal EST GFR - AA 67 Result Comment: GFR Calc LAB L501.1300 10-20 RATIO Low BUN/CRE 9.8 LAB L501.1800 3.2-5.0 g/dL Normal ALB 3.5 LAB L501.2200 8.5-10.1 mg/dL Low CA 8.0 LAB L501.2300 2.5-4.9 mg/dL Low PHOS 2.3 LAB L501.5300 136-145 mmol/L Normal NA 141 LAB L501.5600 3.5-5.1 mmol/L Normal K 4.1 LAB L501.5900 98-107 mmol/L High CL 108 LAB L501.6100 21.0-32.0 mmol/L Normal CO2 22.0 Performed By: #### L500.3600 #### [facility] [address] [place], [address] TACROLIMUS (PROGRAF) Collected: 07/22/2017 Status: F Source: [place] 8:12 AM [facility] REPOSITORY TYPE CODE TESTS RESULT OUT OF RANGE REFERENCE UNITS LAB L3380.1100 2.0-20.0 ng/mL Normal TACROLIMUS 6.5 Result Comment: Trough (immediately following transplant) 15.0 Trough (steady state, 2 weeks or more after transplant): 3.0 - 8.0 Detection Limit = 1.0 Performed by LC-MS/MS technology. Performed at: [facility] [id number] Print Binding Worker: Renan Soares MD, Phone: [phone] Performed By: #### L3380.1000 #### [facility] (refer to report for specific site) refer to report for address and phone number DISCHARGE INSTRUCTION Observed: 07/21/2017 Status: F Source: [place] 12:36 PM [facility] REPOSITORY [facility] Medical Records Department [address] [place] [address] Instructions for Home/Discharge Instructions 07/21/17 1229 MR#: [id number] Acct: [id number] Name: SKYLER PINZON Rep #: [id number] : 1965 52 From: Bharti REGAN PCP: Mike Bella MD Status: ADM PILY - Discharge Diagnoses Current Active Problems: Current Active and Chronic Problems Pulmonary embolism (Acute) Chest pain (Acute) Pulmonary infiltrate present on computed tomography (Chronic) You will use the following diet at home:: No restrictions Discharge Activity: Return to Normal Activity Call your doctor if you observe: Shortness of breath, Dizziness, Fainting spells, Chest pain Additional Instructions: You were found to have a blood clot in your lungs. You were started on xarelto which is a blood thinner. You will take Xarelto 15mg twice a day for 21 days. You will then take Xarelto 20mg once daily after that. Your primary care physician will continue prescription after your 21 days course of treatment. Recommend you follow up with a information director that looks for reasons why you had a blood clot. Allergies/Adverse Reactions: Allergies No Known Allergies Allergy (Verified 07/20/17 20:56) Medications to take at Discharge Mycophenolate Mofetil [Cellcept] 500 mg PO BID 07/14/16 Amlodipine [Norvasc] 5 mg PO 2100 12/01/16 Tacrolimus Anhydrous [Prograf] 2 mg PO BID 12/02/16 Sulfamethoxazole/Trimethoprim [Sulfamethoxazole-Tmp Ss Tablet] 1 tab PO DAILY 07/13/17 Ciprofloxacin [Cipro] 500 mg PO BID #16 tab 07/18/17 Lactobacillus Acidophilus [Acidophilus] 1 tab PO BID #60 tab 07/18/17 Rivaroxaban [Xarelto] 15 mg PO BIDCM #42 tab 07/21/17 The following prescriptions were given: Rivaroxaban [Xarelto] 15 mg PO BIDCM #42 tab Primary Care Physician: Mike Bella MD [Primary Care Provider] - Please follow up with your Primary Care Physician in: 1 Week Please Follow Up With: Mariann Winters MD - Hematology When: 1-2 Weeks Please Follow Up With: Nakul Crenshaw MD When: As scheduled Please Follow Up With: Kidney doctor When: As scheduled Proposed Discharge Date: 07/21/17 07/21/17 1236 <Electronically signed by Bharti REGAN> Date Bharti REGAN CC: Mike Bella MD BASIC METABOLIC Collected: 07/21/2017 Status: F Source: MELVIN PROFILE (BMP) 5:06 AM [facility] REPOSITORY Order Comment: 'TROP' Serial specimen #1, #2, #3, or #4: 2 TYPE CODE TESTS RESULT OUT OF RANGE REFERENCE UNITS LAB L501.0100 74-106 mg/dL Normal GLU 85 Result Comment: Please note revised GLUCOSE reference range effective 2017. LAB L501.1000 7-18 mg/dL High BUN 19 LAB L501.1100 0.70-1.30 mg/dL High CREAT,SERUM 1.35 Result Comment: The validity of the calculated GFR AND GFRAA in patients over 70 years has not been determined. Clinical correlation is essential. LAB L501.1110 >60 mL/min Low EST GFR 59 Result Comment: Non- GFR Calc LAB L501.1115 >60 mL/min Normal EST GFR - AA 72 Result Comment: GFR Calc LAB L501.1255 ml/min Normal Estimated CRCL 71.85 LAB L501.1300 10-20 RATIO Normal BUN/CRE 14.1 LAB L501.2200 8.5-10 mg/dL Low .1 CA 7.9 LAB L501.5300 136-14 mmol/L Normal 5 NA 140 LAB L501.5600 3.5-5. mmol/L Normal 1 K 4.2 LAB L501.5900 98-107 mmol/L High CL 112 LAB L501.6100 21.0-3 mmol/L Low 2.0 CO2 19.0 LAB L501.6200 5-15 Normal GAP 9 Performed By: #### L500.2500, L501.4010 #### [facility] [address] [place], [place], [address] TROPONIN-I Collected: 07/21/2017 Status: F Source: [place] 5:06 AM [facility] REPOSITORY Order Comment: 'TROP' Serial specimen #1, #2, #3, or #4: 2 TYPE CODE TESTS RESULT OUT OF RANGE REFERENCE UNITS LAB L501.4010 <0.06 ng/mL Normal < 0.02 TROPONIN-I Result Comment: TROPONIN-I EXPECTED VALUES <0.05 NEGATIVE 0.06 - 0.59 AT RISK OF TX > OR = 0.60 SUGGEST TX Performed By: #### L500.2500, L501.4010 #### [facility] [address] [place], [place], [id number] TROPONIN-I Collected: 07/21/2017 Status: F Source: [place] 2:05 AM [facility] REPOSITORY Order Comment: 'TROP' Serial specimen #1, #2, #3, or #4: 2 TYPE CODE TESTS RESULT OUT OF RANGE REFERENCE UNITS LAB L501.4010 <0.06 ng/mL Normal < 0.02 TROPONIN-I Result Comment: TROPONIN-I EXPECTED VALUES <0.05 NEGATIVE 0.06 - 0.59 AT RISK OF TX > OR = 0.60 SUGGEST TX Performed By: #### L501.4010 #### [facility] [address] [place], [address] HISTORY AND PHYSICAL Observed: 07/21/2017 Status: F Source: [place] EXAM 12:35 AM [facility] REPOSITORY [facility] Medical Records Department [address] [place] [address] History and Physical 07/21/17 0024 MR#: [id number] Acct: [id number] Name: SKYLER PINZON Rep #: [id number] : 1965 52 From: Ambrosio Solis DO PCP: Mike Bella MD Status: ADM PILY Y Location: [place] [address] Problem List (1) Pulmonary embolism Status: Acute (2) Chest pain Status: Acute (3) Pulmonary infiltrate present on computed tomography Status: Chronic (4) Acute UTI Status: Chronic (5) Kidney transplant recipient Status: Chronic (6) CKD (chronic kidney disease), stage III Status: Chronic (7) Congenital nystagmus Status: Chronic (8) DVT (deep venous thrombosis) Status: Chronic (9) Mild MRDD Status: Chronic (10) Neurogenic bladder disorder Status: Chronic Comment: managed with cic (11) Renal transplant, status post Status: Chronic History of Present Illness Date of Admission: 07/21/17 Chief Complaint: chest pain The patient is a 52 year old M who is a discharge on the with a urinary tract infection. Patient presents on the with chest pain. Patient describes chest pain is midsternal. Patient had an elevated d-dimer of 5. Dr. Armstrong, of nephrology was contacted by the emergency room, and was asked if patient could undergo a CT angiogram. Stated that would be fine but the patient ate and would need to be hydrated afterwards. Patient was found to have a right middle lobe pulmonary embolism. Patient is stable. Patient is being admitted for further IV fluids and to initiate anticoagulation for his pulmonary embolism. From the records from the patient's hospitalization, patient was on subcutaneous heparin for DVT prophylaxis. Patient does have a history of a DVT in his upper extremity. [] Past Medical History Past Medical History (Chronic Problems): Chronic Problems Pulmonary infiltrate present on computed tomography (Chronic) CKD (chronic kidney disease), stage III (Chronic) Acute UTI (Chronic) Kidney transplant recipient (Chronic) Congenital nystagmus (Chronic) Mild MRDD (Chronic) DVT (deep venous thrombosis) (Chronic) Renal transplant, status post (Chronic) Neurogenic bladder disorder (Chronic) managed with cic Allergies No Known Allergies Allergy (Verified 07/20/17 20:56) Home Medications: Ambulatory Orders Medication Instructions Recorded Surgical History: - - Right kidney transplant [facility], dialysis access prior. Right upper extremity fistula Lives: Alone Smoking Status: Never smoker Tobacco Use: Non-smoker Alcohol: None Drugs: None - *Family History Maternal History Items: Hypertension Paternal History Items: Diabetes Review of Systems Constitutional: Denies: Chills, Fever Eyes: Denies: Blurred vision HEENT: Denies: Difficulty Hearing Cardiovascular: Reports: Chest Pain. Denies: Edema Respiratory: Reports: Cough Gastrointestinal: Denies: Abdominal Pain, Nausea, Vomiting Genitourinary: Denies: Dysuria, Hematuria Musculoskeletal: Denies: Joint Pain, Joint Tenderness Skin: Denies: Rash, Wounds Neurological: Denies: Numbness, Tingling, Focal weakness Psychiatric: Denies: Anxiety, Depression, Homicidal Ideations, Suicidal Ideations Hematologic/ Lymphatic: Reports: Hx of blood clot. Denies: Easy Bruising, Easy Bleeding VTE Information - Inpt Only VTE Present on Admission: Yes Patient Problems: Active and Suspected Problems Pulmonary embolism (Acute) Chest pain (Acute) - Physical Exam General: Alert, Cooperative, No apparent distress HEENT: Atraumatic, Normocephalic Neck: No Nodes, Thyroid Normal Size and Texture Lungs: Clear to auscultation, Normal air movement, No rhonchi, No wheeze Cardiovascular: Regular rate, Regular Rhythm, Normal S1, Normal S2, No murmurs Abdomen: Bowel Sounds Present, Soft, Non Tender, Non-Distended, No Hepato-splenomegaly Extremities: No edema, No Calf Tenderness, - - Fistula of right upper extremity with audible bruit. Skin: No rashes, No breakdown Musculoskeletal: - - Reproducible midsternal chest pain Psych/Mental Status: Normal Affect, Appropriate Vital Signs Temp Pulse Resp BP Pulse Ox 37.1 C 93 21 H 140/79 H 96 07/20/17 20:51 07/21/17 00:09 07/21/17 00:09 07/21/17 00:09 07/21/17 00:09 Oxygen Flow Rate (L/min) 2 Oxygen Delivery Method Room Air Weight: 82.2 kg Body Mass Index (BMI) 24.5 Laboratory Tests Past 24 Hrs WBC 3.7 L RBC 5.03 Hgb 14.3 Hct 43.9 MCV 87.3 MCH 28.4 MCHC 32.6 Clinical Impression(s) from Imaging Studies Chest X-Ray 07/20/17 21:03 IMPRESSION: Bibasilar nonspecific opacities may reflect underlying atelectasis and/or evolving pneumonia. Electronically Signed: Sheyla Long MD at 21:56 EDT Tel , Service support , Chest CTA 07/20/17 22:09 IMPRESSION: Pulmonary emboli within the right middle lobe. Bilateral groundglass opacities associated with dependent consolidation within the lower lobes likely reflects some combination of edema and/or pneumonia. Bilateral lower lobe atelectasis. Atherosclerosis. N.B. : The above information has been verbally conveyed by Sheyla Long MD to , Covering Physician, on 07/20/2017 23:43:28 (ET). Electronically Signed: Sheyla Long MD at 23:43 EDT Tel , Service support , N.B. : The above information has been verbally conveyed by Sheyla Long MD to , Covering Physician, on 07/20/2017 23:43:28 (ET). Assessment/Plan Active and Suspected Problems Pulmonary embolism (Acute) Chest pain (Acute) 1. Pulmonary embolism * Patient is hemodynamically stable. I discussed with patient's sister, who is patient's power of tax attorney and advised the NOACs over Coumadin. * Since it is guideline driven and I recommended over Coumadin but also ease of use without lab work as well. * Patient will be started on Xarelto 15 mg twice daily. * I would recommend patient follow-up with hematology as outpatient to see if the treatment should extend beyond 6 months given that this appears to be an unprovoked clot as patient apparently was properly anticoagulated with heparin during his most recent hospitalization. 2. Chest pain * I feel that this is more musculoskeletal rather than due to his PE or even cardiac * We will cycle troponins but if those are negative would not pursue any additional workup. 3. Chronic kidney disease stage III * Status post renal transplant * Continue with IV fluids and reevaluate the patient's creatinine in the morning * Continue with the patient's renal transplantation medications * It would appear that the patient is going to be hospitalized longer than the then I would recommend consulting nephrology for management of his transplantation medications * I am holding off on consulting nephrology as I anticipate the patient being hospitalized less than 24 hours. 4. Pulmonary infiltrates * Noted on CAT scan today. I reviewed the patient's CT of his abdomen pelvis the and there was evidence of infiltrates at that time * Patient is hemodynamically stable and I am not convinced the patient has acute pneumonia in the absence of any fever or leukocytosis, granted that the patient is on immunosuppressive medications. * I would be concerned about aspiration events. Patient's sister noted that with the patient's most recent hospitalization that he did have emesis prior to that. But also be concerned about some chronic aspiration as well * Will consult speech therapy 5. UTI * Continue with Cipro as had been ordered previously 6. Advanced care planning * Discussed with patient's sister, who is the patient's power of tax attorney, discussed CPR and endotracheal intubation. Patient is to continue to be full CODE STATUS at this time. She does state that she he does have a follow-up appointment with his primary care doctor, Dr. Bella, in the coming week or 2 and they plan on discussing it with him at that time. Code Visit OBSV E AND M: [id number] Initial observation care L3 07/21/17 0035 <Electronically signed by Ambrosio Solis DO> Date Ambrosio Solis DO Cosigner Signature: Date (if applicable) CC: Ambrosio Solis DO; Mike Bella MD Signed EMERGENCY DEPARTMENT Observed: 07/20/2017 Status: F Source: [place] SUMMARY 11:51 PM [facility] REPOSITORY [facility] Medical Records Department [address] [place] [address] Emergency Department Summary 07/20/17 2348 MR#: [id number] Acct: [id number] Name: SKYLER PINZON Rep #: [id number] : 1965 52 From: Brooks Fallon DO PCP: Mike Bella MD Status: REG ER - ER Visit Summary Date of Service: 07/20/17 Chief Complaint: [Chest pain] History of Present Illness: The patient is a 52 M [presents with chest discomfort that started this evening approximately 2 hours prior to arrival in the emergency department. Patient states that he was sitting and watching television. Patient described the pain as sharp in the anterior chest and rates it an 8 out of 10. Patient states pain is worse with deep breath. Patient was recently admitted to the hospital and treated for urosepsis. Patient has had a cough. Patient denies fever. Patient does have a history of kidney transplant, neurogenic bladder, DVT that is not currently being treated, MRDD. Patient is a poor informant and a lot of the history comes from his sister.] Physical Examination: [HEENT-PERRLA, EOMI. Cranial nerves II through XII grossly intact. TMs clear. Mucous membranes moist. No adenopathy. Cardiovascular-regular rate and rhythm without murmur or ectopy Lungs-clear to auscultation, chest wall stable without crepitus or subcu emphysema Abdomen-normoactive bowel sounds, soft, nontender, no rebound or rigidity, no peritoneal signs. Extremities-intact 4, normal range of motion, normal pulses, atraumatic] Test Results: [EKG obtained showed sinus rhythm with a ventricular rate of 111. CBC with differential showed a white count of 3.7, hemoglobin 14, hematocrit 44, platelets 238. History is unremarkable. BUN was 20 and creatinine was 1.54. Glucose was 107. Troponin was less than 0.02. D-dimer was elevated at 4.98. CTA of the chest showed a right middle lobe pulmonary embolus and pneumonia.] Emergency Department Course and Treatment: [Patient case initially was discussed with Dr. Armstrong of nephrology prior to obtaining the CTA given patient's history of renal failure and kidney transplant. We were asked to hydrate the patient after the CTA. Patient will be admitted for anticoagulation. Patient also to be admitted for further workup of his chest pain and management of his pain. After 4 mg of morphine patient continues to complain of pain.] Treatment Plan: [Admit] Disposition: [Admit] Impression: [Chest pain Pulmonary embolism Pneumonia] This note was generated with [employer] dictation software. It may contain incorrect words, spelling, and punctuation that were not noted in review of the chart prior to signing ED Disposition - Plan for ED Patient: Chief Complaint: Chest Pain Referrals: Mike Bella MD [Primary Care Provider] - What to do if you have Problems For any increased pain, shortness of breath, bleeding, nausea or vomiting, chest pain, or any unexpected problems, contact your Primary Care Provider. Call [facility] ([phone]) or report to the closest Emergency Room. Call 911 if necessary. 07/20/17 4901 <Electronically signed by Brooks Fallon DO> Date Brooks Fallon DO Cosigner Signature (If Indicated): Date CC: Mike Bella MD CTA CHEST W/WO Observed: 07/20/2017 Status: F Source: MELVIN CONTRAST 10:09 PM [facility] REPOSITORY [facility] Imaging Services [address] [place] [id number] CTA Chest W/WO Contrast MR#: [id number] Acct: [id number] Name: SKYLER PINZON Rep #: [id number] : 1965 M 52 From: Sheyla Long MD PCP: Mike Bella MD Status: REG ER Study: CTA Chest W/WO Contrast Date of Exam: 07/20/17 Exam# [id number] Ordering Dr: Brooks Fallon DO STUDY: CTA CHEST REASON FOR EXAM: Male, 52 years old. Sternal pain. RADIATION DOSAGE (If Supplied By Facility): CTDIvol = ( 16.34 ) mGy, DLP = ( 599.24 ) mGycm TECHNIQUE: The examination was performed with the intravenous administration of 75ML ml of Isovue 370 contrast material. Post-processing of the angiographic images was performed, with multiplanar reformation and 3D reconstruction. Individualized dose optimization techniques were used for this CT. COMPARISON: None. FINDINGS: There are groundglass opacities associated with minimal dependent consolidation and atelectasis within the lower lobes. There are filling defects noted within segmental and subsegmental pulmonary arteries within the right middle lobe consistent with pulmonary emboli Normal thoracic aorta and visualized great vessels. There is no demonstrated aortic dissection. There are endovascular stent(s) present. Normal mediastinum. Normal hilar regions. Normal visualized trachea and bronchi. Normal chest wall structures. There are degenerative changes of thoracic spine. The limited images of the upper abdomen demonstrate atrophic kidneys. CT/CTA Chest W/WO Contrast IMPRESSION: Pulmonary emboli within the right middle lobe. Bilateral groundglass opacities associated with dependent consolidation within the lower lobes likely reflects some combination of edema and/or pneumonia. Bilateral lower lobe atelectasis. Atherosclerosis. N.B. : The above information has been verbally conveyed by Sheyla Long MD to , Covering Physician, on 07/20/2017 23:43:28 (ET). Electronically Signed: Sheyla Long MD at 23:43 EDT Tel , Service support , N.B. : The above information has been verbally conveyed by Sheyla Long MD to , Covering Physician, on 07/20/2017 23:43:28 (ET). CC: Mike Bella MD; Brooks Fallon DO Admitted Attorneys: Signed CHEST 1 VIEW Observed: 07/20/2017 Status: F Source: MELVIN (PORTABLE) 9:04 PM [facility] REPOSITORY [facility] Imaging Services [address] [place] [address] Chest 1 View (Portable) MR#: [id number] Acct: [id number] Name: SKYLER PINZON Rep #: [id number] : 1965 M 52 From: Sheyla Long MD PCP: Mike Bella MD Status: REG ER Study: Chest 1 View (Portable) Date of Exam: 07/20/17 Exam# [id number] Ordering Dr: Brooks Fallon DO STUDY: X-RAY CHEST REASON FOR EXAM: Male, 52 years old. Cough chest pain TECHNIQUE: Portable AP COMPARISON: July 13, 2017 FINDINGS: There are bibasilar ill-defined opacities. Normal size heart. Normal mediastinum and alton. Normal visualized pulmonary arteries. Normal visualized aortic arch and descending thoracic aorta. There are diffuse degenerative changes of the visualized thoracic spine. Normal visualized ribs, clavicles, and shoulders. There is no demonstrated abnormality of the visualized soft tissue structures of the upper abdomen. RAD/Chest 1 View (Portable) IMPRESSION: Bibasilar nonspecific opacities may reflect underlying atelectasis and/or evolving pneumonia. Electronically Signed: Sheyla Long MD at 21:56 EDT Tel , Service support , CC: Mike Bella MD; Brooks Fallon DO Admitted Attorneys: Signed BASIC METABOLIC Collected: 07/20/2017 Status: F Source: MELVIN PROFILE (BMP) 8:55 PM [facility] REPOSITORY Order Comment: 'TROP' Serial specimen #1, #2, #3, or #4: 1 TYPE CODE TESTS RESULT OUT OF RANGE REFERENCE UNITS LAB L501.0100 74-106 mg/dL High GLU 107 Result Comment: Fasting Glucose result from 100 to 125 mg/dL suggests IMPAIRED HOMEOSTASIS per A.D.A. criteria. Please note revised GLUCOSE reference range effective 2017. LAB L501.1000 7-18 mg/dL High BUN 20 LAB L501.1100 0.70-1.30 mg/dL High CREAT,SERUM 1.54 Result Comment: The validity of the calculated GFR AND GFRAA in patients over 70 years has not been determined. Clinical correlation is essential. LAB L501.1110 >60 mL/min Low EST GFR 51 Result Comment: Non- GFR Calc LAB L501.1115 >60 mL/min Normal EST GFR - AA 62 Result Comment: GFR Calc LAB L501.1255 ml/min Normal Estimated CRCL 62.99 LAB L501.1300 10-20 RATIO Normal BUN/CRE 13.0 LAB L501.2200 8.5-10 mg/dL Normal .1 CA 8.5 LAB L501.5300 136-14 mmol/L Normal 5 NA 143 LAB L501.5600 3.5-5. mmol/L Normal 1 K 4.3 LAB L501.5900 98-107 mmol/L High CL 111 LAB L501.6100 21.0-3 mmol/L Normal 2.0 CO2 21.0 LAB L501.6200 5-15 Normal GAP 11 Performed By: #### L500.2500, L501.4010 #### [facility] Laboratory [address] [facility] [place], [address] TROPONIN-I Collected: 07/20/2017 Status: F Source: [place] 8:55 PM [facility] REPOSITORY Order Comment: 'TROP' Serial specimen #1, #2, #3, or #4: 1 TYPE CODE TESTS RESULT OUT OF RANGE REFERENCE UNITS LAB L501.4010 <0.06 ng/mL Normal < 0.02 TROPONIN-I Result Comment: TROPONIN-I EXPECTED VALUES <0.05 NEGATIVE 0.06 - 0.59 AT RISK OF TX > OR = 0.60 SUGGEST TX Performed By: #### L500.2500, L501.4010 #### [facility] Laboratory [address] [place], [place], [address] CBC W/DIFF, AUTOMATED Collected: 07/20/2017 Status: C Source: MELVIN 8:55 PM [facility] REPOSITORY TYPE CODE TESTS RESULT OUT OF RANGE REFERENCE UNITS LAB L100.3100 MANUAL DIFF Normal CELLS COUNTED 100 LAB L100.3200 47-70 % 55 Normal SEGS LAB L100.3300 0-5 % 3 Normal BAND LAB L100.3800 19-41 % 25 Normal LYMPH LAB L100.3900 0-10 % High 12 MONOCYTE LAB L100.4000 0-5 % 3 Normal EOS LAB L100.4100 0-1 % High 2 BASOPHIL LAB L100.1000 4.4-11.0 K/mm3 Low WBC 3.7 LAB L100.1200 4.6-6.2 M/mm3 Normal RBC 5.03 LAB L100.1300 13.0-16.5 g/dl Normal HGB 14.3 LAB L100.1400 40-54 % Normal HCT 43.9 LAB L100.1500 80-94 fL Normal MCV 87.3 LAB L100.1600 27.0-32.0 pg Normal MCH 28.4 LAB L100.1700 32-36 g/gl Normal MCHC 32.6 LAB L100.1810 11.6-14.6 % Normal RDW CV 14.4 LAB L100.1820 35.1-43.9 fl High RDW SD 45.6 LAB L100.1900 150-450 K/mm3 Normal PLT 238 LAB L100.2000 6.2-12.0 fl Normal MPV 10.6 LAB L100.2620 2.0-7.7 X10 3/uL Normal Absolute Neut 2.2 LAB L100.2720 0.83-4.51 X10 3/ul Normal Absolute Lymph 0.93 LAB L100.5650 Normal PLT MORPH LARGE LAB L100.9900 Normal PATH REV Reviewed Result Comment: AMENDED REPORT 07/22/17 1050 PATH REV previously reported as: August Performed By: #### L100.0100 #### [facility] Laboratory [address], [address] D-DIMER QUANTITATIVE Collected: 07/20/2017 Status: F Source: MELVIN (DVT/PE) 8:55 PM [facility] REPOSITORY TYPE CODE TESTS RESULT OUT OF RANGE REFERENCE UNITS LAB L300.8000 0.27-0.49 FEU/ug/m High alert D-DIMER 4.98 QUANT Result Comment: D-Dimer ELEVATED (>0.49): Additional studies and clinical assessments are indicated to conclude diagnosis of: Deep Vein Thrombosis (DVT) or Pulmonary Embolism (PE) CRITICAL VALUE VERIFIED. CALLED TO [facility] 07/20/17 5026 Ameliakaty Mina. RESULTS READ BACK BY SAME . Performed By: #### L300.8000 #### [facility] Laboratory [address] [place], [address] DISCHARGE INSTRUCTION Observed: 07/18/2017 Status: F Source: [place] 9:58 AM [facility] REPOSITORY [facility] Medical Records Department [address] [place] [address] Instructions for Home/Discharge Instructions 07/18/17 0952 MR#: [id number] Acct: [id number] Name: SKYLER PINZON Rep #: [id number] : 1965 52 From: Bharti Aly DEHORNER-C PCP: Mike Bella MD Status: ADM IN - Discharge Diagnoses Current Active Problems: Current Active and Chronic Problems CKD (chronic kidney disease), stage III (Chronic) Acute UTI (Acute) Kidney transplant recipient (Acute) You will use the following diet at home:: No restrictions Discharge Activity: Return to Normal Activity Call your doctor if you observe: Fever of 101 or Higher, Shortness of breath, Dizziness, Fainting spells, Chest pain Allergies/Adverse Reactions: Allergies No Known Allergies Allergy (Verified 07/13/17 21:32) Medications to take at Discharge Mycophenolate Mofetil [Cellcept] 500 mg PO BID 07/14/16 Amlodipine [Norvasc] 5 mg PO 2100 12/01/16 Tacrolimus Anhydrous [Prograf] 2 mg PO BID 12/02/16 Sulfamethoxazole/Trimethoprim [Sulfamethoxazole-Tmp Ss Tablet] 1 tab PO DAILY 07/13/17 Ciprofloxacin [Cipro] 500 mg PO BID #16 tab 07/18/17 Lactobacillus Acidophilus [Acidophilus] 1 tab PO BID #60 tab 07/18/17 The following prescriptions were given: Ciprofloxacin [Cipro] 500 mg PO BID #16 tab Lactobacillus Acidophilus [Acidophilus] 1 tab PO BID #60 tab Primary Care Physician: Mike Bella MD [Primary Care Provider] - Please follow up with your Primary Care Physician in: 1 Week Please Follow Up With: Nakul Crenshaw MD When: As scheduled Please Follow Up With: Kidney Doctor When: As scheduled Proposed Discharge Date: 07/18/17 07/18/17 0958 <Electronically signed by Bharti REGAN> Date Bharti REGAN CC: Jose Bruno M.D.; Mike Bella MD; Cheng Santos MD CBC-COMPLETE BLOOD CNT Collected: 07/18/2017 Status: F Source: MELVIN NO DIFF 6:14 AM [facility] REPOSITORY TYPE CODE TESTS RESULT OUT OF RANGE REFERENCE UNITS LAB L100.1000 4.4-11.0 K/mm3 Normal WBC 4.6 LAB L100.1200 4.6-6.2 M/mm3 Low RBC 4.55 LAB L100.1300 13.0-16.5 g/dl Low HGB 12.9 LAB L100.1400 40-54 % Normal HCT 40.0 LAB L100.1500 80-94 fL Normal MCV 87.9 LAB L100.1600 27.0-32.0 pg Normal MCH 28.4 LAB L100.1700 32-36 g/gl Normal MCHC 32.3 LAB L100.1810 11.6-14.6 % Normal RDW CV 14.2 LAB L100.1820 35.1-43.9 fl High RDW SD 45.5 LAB L100.1900 150-450 K/mm3 Normal PLT 154 LAB L100.2000 6.2-12.0 fl Normal MPV 11.2 Performed By: #### L100.0500 #### [facility] Laboratory [address] [place], [address] BASIC METABOLIC Collected: 07/18/2017 Status: F Source: MELVIN PROFILE (BMP) 6:14 AM [facility] REPOSITORY TYPE CODE TESTS RESULT OUT OF RANGE REFERENCE UNITS LAB L501.0100 74-106 mg/dL Normal GLU 90 Result Comment: Please note revised GLUCOSE reference range effective 2017. LAB L501.1000 7-18 mg/dL Normal BUN 11 LAB L501.1100 0.70-1.30 mg/dL Normal CREAT,SERUM 1.13 Result Comment: The validity of the calculated GFR AND GFRAA in patients over 70 years has not been determined. Clinical correlation is essential. LAB L501.1110 >60 mL/min Normal EST GFR 73 Result Comment: Non- GFR Calc LAB L501.1115 >60 mL/min Normal EST GFR - AA 88 Result Comment: GFR Calc LAB L501.1255 ml/min Normal Estimated CRCL 85.84 LAB L501.1300 10-20 RATIO Low BUN/CRE 9.7 LAB L501.2200 8.5-10 mg/dL Low .1 CA 7.3 LAB L501.5300 136-14 mmol/L Normal 5 NA 142 LAB L501.5600 3.5-5. mmol/L Normal 1 K 4.1 LAB L501.5900 98-107 mmol/L High CL 115 LAB L501.6100 21.0-3 mmol/L Low 2.0 CO2 18.0 LAB L501.6200 5-15 Normal GAP 9 Performed By: #### L500.2500, L501.2300 #### [facility] Laboratory [address] [facility] [address] [place], [place], [address] PHOSPHORUS Collected: 07/18/2017 Status: F Source: MELVIN 6:14 AM [facility] REPOSITORY TYPE CODE TESTS RESULT OUT OF RANGE REFERENCE UNITS LAB L501.2300 2.5-4.9 mg/dL Low PHOS 2.1 Performed By: #### L500.2500, L501.2300 #### [facility] Laboratory [address] [place], [address] Observed: 07/17/2017 Status: F Source: MELVIN CDIFF (MOLECULAR) 8:52 AM [facility] REPOSITORY Order Date: 07/17/17 Cdiff-Molecular C. Diff DNA Negative- No toxigenic C. Diff DNA Detected NAAT METHOD Testing was performed using nucleic acid amplification Performed By: #### M100.6796 #### [facility] Laboratory [address] [facility] [address] [place], [address] BASIC METABOLIC Collected: 07/17/2017 Status: F Source: MEL[place] PROFILE (BMP) 7:24 AM [facility] REPOSITORY TYPE CODE TESTS RESULT OUT OF RANGE REFERENCE UNITS LAB L501.0100 74-106 mg/dL Normal GLU 89 Result Comment: Please note revised GLUCOSE reference range effective 2017. LAB L501.1000 7-18 mg/dL Normal BUN 14 LAB L501.1100 0.70-1.30 mg/dL Normal CREAT,SERUM 1.18 Result Comment: The validity of the calculated GFR AND GFRAA in patients over 70 years has not been determined. Clinical correlation is essential. LAB L501.1110 >60 mL/min Normal EST GFR 69 Result Comment: Non- GFR Calc LAB L501.1115 >60 mL/min Normal EST GFR - AA 84 Result Comment: GFR Calc LAB L501.1255 ml/min Normal Estimated CRCL 82.20 LAB L501.1300 10-20 RATIO Normal BUN/CRE 11.9 LAB L501.2200 8.5-10 mg/dL Low .1 CA 7.3 LAB L501.5300 136-14 mmol/L Normal 5 NA 141 LAB L501.5600 3.5-5. mmol/L Normal 1 K 4.1 LAB L501.5900 98-107 mmol/L High CL 114 LAB L501.6100 21.0-3 mmol/L Low 2.0 CO2 18.0 LAB L501.6200 5-15 Normal GAP 9 Performed By: #### L500.2500 #### [facility] Laboratory [facility] [place], [address] CBC-COMPLETE BLOOD CNT Collected: 07/17/2017 Status: F Source: MEL[place] NO DIFF 7:24 AM [facility] REPOSITORY TYPE CODE TESTS RESULT OUT OF RANGE REFERENCE UNITS LAB L100.1000 4.4-11.0 K/mm3 Normal WBC 5.0 LAB L100.1200 4.6-6.2 M/mm3 Low RBC 4.49 LAB L100.1300 13.0-16.5 g/dl Low HGB 12.6 LAB L100.1400 40-54 % Low HCT 39.6 LAB L100.1500 80-94 fL Normal MCV 88.2 LAB L100.1600 27.0-32.0 pg Normal MCH 28.1 LAB L100.1700 32-36 g/gl Low MCHC 31.8 LAB L100.1810 11.6-14.6 % Normal RDW CV 14.0 LAB L100.1820 35.1-43.9 fl High RDW SD 45.0 LAB L100.1900 150-450 K/mm3 Low PLT 125 LAB L100.2000 6.2-12.0 fl Normal MPV 11.3 Performed By: #### L100.0500 #### [facility] Laboratory [address] [facility] [place], [address] 12 LEAD ELECTROCARDIOGRAM Observed: 07/16/2017 Status: F Source: MELVIN 1:29 PM [facility] REPOSITORY [facility] Cardiovascular Services [address] [place] [address] 12 Lead EKG 07/13/17 2154 MR#: [id number] Acct: [id number] Name: SKYLER PINZON Rep #: [id number] : 1965 52 From: Rolf Mon MD Attending Dr: Keli Metzger Status: ADM IN Ordering Dr: Claus Lisa MD Date: 07/13/17 Location: [facility] Sex: M C Admitted: 07/13/17 Test Reason : FEVER Blood Pressure : / mmHG Vent. Rate : 122 BPM Atrial Rate : 122 BPM P-R Int : 136 ms QRS Dur : 076 ms QT Int : 306 ms P-R-T Axes : 040 -07 055 degrees QTc Int : 436 ms Sinus tachycardia Otherwise normal ECG Confirmed by ROLF MON MD ([id number]), associate entertainment editor IRAM CONKLIN ([id number]) on 07/16/2017 1:29:09 PM Referred By: BROOK Confirmed By:ROLF MON MD 07/16/17 1329 Date Rolf Mon MD CC: Claus Lisa; Mike Bella MD Signed CBC W/DIFF, AUTOMATED Collected: 07/16/2017 Status: C Source: MELVIN 5:55 AM [facility] REPOSITORY TYPE CODE TESTS RESULT OUT OF RANGE REFERENCE UNITS LAB L100.1000 4.4-11.0 K/mm3 Normal WBC 6.0 LAB L100.1200 4.6-6.2 M/mm3 Low RBC 4.43 LAB L100.1300 13.0-16.5 g/dl Low HGB 12.5 LAB L100.1400 40-54 % Low HCT 39.1 LAB L100.1500 80-94 fL Normal MCV 88.3 LAB L100.1600 27.0-32.0 pg Normal MCH 28.2 LAB L100.1700 32-36 g/gl Normal MCHC 32.0 LAB L100.1810 11.6-14.6 % Normal RDW CV 14.0 LAB L100.1820 35.1-43.9 fl High RDW SD 44.9 LAB L100.1900 150-450 K/mm3 Low PLT 121 LAB L100.2000 6.2-12.0 fl Normal MPV 11.0 LAB L100.3100 MANUAL DIFF Normal CELLS COUNTED 100 LAB L100.3200 47-70 % High 73 SEGS LAB L100.3300 0-5 % High 6 BAND LAB L100.3400 0-1 % High 2 META LAB L100.3800 19-41 % Low 12 LYMPH LAB L100.3900 0-10 % 6 Normal MONOCYTE LAB L100.4000 0-5 % 1 Normal EOS LAB L100.5500 ADEQ Normal PLT EST ADEQUATE LAB L100.7000 NORM C AND C NORMAL Normal RED CELL MORPH NORM C+C LAB L100.9900 Normal PATH REV Reviewed Result Comment: Normocytic anemia. Mild Thrombocytopenia. Clinical correlation suggested. Sunny Lopez D.O. 07/19/17 Pathologist comment added AMENDED REPORT 07/19/17 1114 PATH REV previously reported as: May foll LAB L100.2620 2.0-7.7 X10 3/uL Normal Absolute Neut 4.4 LAB L100.2720 0.83-4.51 X10 3/ul Low Absolute Lymph 0.72 Performed By: #### L100.0100 #### [facility] Laboratory [address] [place], [place], [address] COMPREHENSIVE METABOLIC Collected: 07/16/2017 Status: F Source: [facility] 5:55 AM [facility] REPOSITORY TYPE CODE TESTS RESULT OUT OF RANGE REFERENCE UNITS LAB L501.0100 74-106 mg/dL Normal GLU 94 Result Comment: Please note revised GLUCOSE reference range effective 2017. LAB L501.1000 7-18 mg/dL Normal BUN 14 LAB L501.1100 0.70-1.30 mg/dL Normal CREAT,SERUM 1.23 Result Comment: The validity of the calculated GFR AND GFRAA in patients over 70 years has not been determined. Clinical correlation is essential. LAB L501.1110 >60 mL/min Normal EST GFR 66 Result Comment: Non- GFR Calc LAB L501.1115 >60 mL/min Normal EST GFR - AA 80 Result Comment: GFR Calc LAB L501.1255 ml/min Normal Estimated CRCL 78.86 LAB L501.1300 10-20 RATIO Normal BUN/CRE 11.4 LAB L501.1500 6.4-8. g/dL Low 2 T PROT 5.8 LAB L501.1800 3.2-5. g/dL Low 0 ALB 2.7 LAB L501.1950 2.2-4. g/dL Normal 2 GLOB 3.1 LAB L501.2000 0.9-2. RATIO Normal 4 A/G 0.9 LAB L501.2200 8.5-10 mg/dL Low .1 CA 7.3 LAB L501.4100 15-37 U/L Normal AST 25 LAB L501.4305 45-117 U/L Low ALK P 42 LAB L501.4405 16-61 U/L Normal ALT 24 Result Comment: Please note revised ALT reference range effective 2017. LAB L501.4600 0.20-1.00 mg/dL Normal T BILI 1.00 LAB L501.5300 136-145 mmol/L Normal NA 141 LAB L501.5600 3.5-5.1 mmol/L Normal K 4.1 LAB L501.5900 98-107 mmol/L High CL 113 LAB L501.6100 21.0-32.0 mmol/L Low CO2 19.0 LAB L501.6200 5-15 Normal GAP 9 Performed By: #### L500.4050, L501.2300, L501.5200 #### [facility] Laboratory [address] [place], [address] PHOSPHORUS Collected: 07/16/2017 Status: F Source: [place] 5:55 AM [facility] REPOSITORY TYPE CODE TESTS RESULT OUT OF RANGE REFERENCE UNITS LAB L501.2300 2.5-4.9 mg/dL Low PHOS 2.2 Performed By: #### L500.4050, L501.2300, L501.5200 #### [facility] Laboratory [address] [place], [address] MAGNESIUM Collected: 07/16/2017 Status: F Source: [place] 5:55 AM [facility] REPOSITORY TYPE CODE TESTS RESULT OUT OF RANGE REFERENCE UNITS LAB L501.5200 1.6-2.6 mg/dL Normal MG 1.7 Result Comment: Please note revised Magnesium reference range effective 2017. Performed By: #### L500.4050, L501.2300, L501.5200 #### [facility] Laboratory [address] [facility] [place], [address] ABDOMEN/PELVIS WITHOUT Observed: 07/16/2017 Status: F Source: MELVIN CONT 12:01 AM [facility] REPOSITORY [facility] Imaging Services [address] [place] [address] Abdomen/Pelvis without Cont MR#: [id number] Acct: [id number] Name: SKYLER PINZON Rep #: [id number] : 1965 M 52 From: Miah Barrios MD PCP: Mike Bella MD Status: ADM IN Study: Abdomen/Pelvis without Cont Date of Exam: 07/16/17 Exam# [id number] Ordering Dr: Adilene Metzger DO STUDY: CT ABDOMEN AND PELVIS WITHOUT CONTRAST REASON FOR EXAM: Male, 52 years old. Urinary tract infection. Kidney transplant. Sepsis. RADIATION DOSAGE (If Supplied By Facility): CTDIvol = ( 7.07 ) mGy, DLP = ( 381.65 ) mGycm TECHNIQUE: Transaxial images were obtained from the dome of the diaphragm to the symphysis pubis without oral contrast, and without intravenous contrast. Sagittal and coronal images were reconstructed. Individualized dose optimization techniques were used for this CT. COMPARISON: December 09, 2016 CT. July 12, 2017 ultrasound. FINDINGS: Left lower lung airspace consolidation. Right lower lung atelectasis. The visualized portions of the heart are within normal limits. There is hepatomegaly with diffuse hepatic enlargement. Normal gallbladder and extrahepatic biliary system. Normal spleen. Normal pancreas. Normal bilateral adrenal glands. There is severe cortical atrophy of the right kidney, consistent with chronic medical renal disease. Small cysts. Stable moderate hydronephrosis with dilatation of the right ureter. There is severe cortical atrophy of the left kidney, consistent with chronic medical renal disease. There is a transplant kidney in the right lower quadrant. There is perinephric edema and stranding. No hydronephrosis of the transplant kidney. Normal visualized stomach. Normal small intestine. Abundant stool in the colon. There is non-visualization of the appendix. Normal abdominal aorta. Normal inferior vena cava. Normal retroperitoneum. Ga catheter in the urinary bladder. There is diffuse wall thickening of the urinary bladder. Normal abdominal wall. Normal osseous structures. CT/Abdomen/Pelvis without Cont IMPRESSION: Transplant kidney in the right lower quadrant. There is perinephric edema of the transplanted kidney. There is no hydronephrosis of the transplant kidney. There is stable hydronephrosis of atrophic right kidney. There is wall thickening of the urinary bladder. Left lower lung pneumonia. Electronically Signed: Miah Barrios MD at 11:02 EDT , Service support , CC: Keli Metzger; Mike Bella MD Admitted Attorneys: Signed CONSULTATION Observed: 07/15/2017 Status: F Source: MELV[place] 10:07 AM [facility] REPOSITORY [facility] Medical Records Department [address] [place] [address] Consultation 07/15/17 0956 MR#: [id number] Acct: [id number] Name: SKYLER PINZON George Rep #: [id number] : 1965 52 From: Darin Williamson MD PCP: Mike Bella MD Status: ADM IN Y Location: [place] [id number] Problem List (1) Kidney transplant recipient Status: Acute (2) CKD (chronic kidney disease), stage III Status: Chronic (3) Acute UTI Status: Acute Consultation - Renal PCP/ Referring MD: Requesting physician: [] Primary care physician: Mike Bella - History of Present Illness History of Present Illness: The patient is a 52 year old M past medical history of end- stage renal disease status post unrelated kidney transplant in March 2016 , history of neurogenic bladder with self-catheterization , DVT , nystagmus . Patient was admitted with high fever of 102 due to UTI . Patient has been doing less frequent self-catheterization. Is on CellCept 500 mg p.o. twice a day and Prograf 2 mg twice a day. Patient is maintaining kidney function at baseline. I was consulted to help in the management of chronic kidney disease in a renal transplant recipient. Patient denies taking NSAIDs. No IV contrast exposure. Review of systems: 12 systems review is negative except for abdominal pain in the suprapubic area and right lower abdominal quadrant] - Allergies Allergies: Allergies No Known Allergies Allergy (Verified 07/13/17 21:32) - Current Medications Current Medications: Current Medications Acetaminophen (Tylenol) 650 mg PO Q6H PRN PRN PRN Reason: Mild Pain (scale 0-3)/T>100.7 Last Admin: 07/15/17 00:38 Dose: 650 mg Al Hydroxide/Mg Hydroxide (Mylanta Ii) 30 ml PO Q6H PRN PRN PRN Reason: Gastric burning Amlodipine Besylate (Norvasc) 5 mg PO 2100 [facility] Last Admin: 07/14/17 21:24 Dose: 5 mg Heparin Sodium (Porcine) (Heparin Na) 5,000 unit SC BID [facility] Last Admin: 07/15/17 09:02 Dose: 5,000 units Hydralazine HCl (Apresoline) 10 mg IV Q4H PRN PRN PRN Reason: SBP > 160 Sodium Chloride () 1,000 mls @ 150 mls/hr IV .Q6H40M [facility] Last Admin: 07/15/17 06:33 Dose: 150 mls/hr Meropenem 500 mg/ Sodium (Chloride) 60 mls @ 100 mls/hr IV Q6 [facility] Last Admin: 07/15/17 05:59 Dose: 100 mls/hr Magnesium Hydroxide (Milk Of Magnesia) 30 ml PO DAILY PRN PRN PRN Reason: Constipation Morphine Sulfate (Morphine) 2 - 4 mg IV Q3H PRN PRN PRN Reason: Severe Pain (pain scale 6-10) Last Admin: 07/14/17 15:55 Dose: 2 mg Morphine Sulfate (Morphine) 1 - 2 mg IV Q4H PRN PRN PRN Reason: Moderate Pain (pain scale 4-5) Morphine Sulfate (Morphine) 2 - 4 mg IV Q3H PRN PRN PRN Reason: Severe Pain (pain scale 6-10) Mycophenolate Mofetil (Cellcept) 500 mg PO BID [facility] Last Admin: 07/15/17 09:03 Dose: 500 mg Ondansetron HCl (Zofran) 4 mg IV Q8H PRN PRN PRN Reason: NAUSEA Last Admin: 07/15/17 05:59 Dose: 4 mg Oxycodone HCl (Oxyir) 5 mg PO Q4H PRN PRN PRN Reason: Moderate Pain (pain scale 4-5) Last Admin: 07/15/17 05:59 Dose: 5 mg Promethazine HCl (Phenergan (Ll)) 12.5 mg IV Q6H PRN PRN PRN Reason: NAUSEA/VOMITING Last Admin: 07/14/17 08:08 Dose: 12.5 mg Sodium Chloride () 5 - 30 ml IV UD PRN PRN Reason: SALINE FLUSH Last Admin: 07/14/17 15:55 Dose: 10 ml Tacrolimus (Prograf) 2 mg PO BID [facility] Last Admin: 07/15/17 09:02 Dose: 2 mg Trimethoprim/Sulfamethoxazole (Bactrim Ds) [facility] Last Admin: 07/15/17 08:55 Dose: 0.5 tablet - Past Medical History Past Medical History (Chronic Problems): Chronic Problems CKD (chronic kidney disease), stage III (Chronic) Congenital nystagmus (Chronic) Mild MRDD (Chronic) DVT (deep venous thrombosis) (Chronic) Renal transplant, status post (Chronic) Neurogenic bladder disorder (Chronic) managed with cic - Past Surgical History Surgical History: - - Right kidney transplant [facility], dialysis access prior. - Social History Smoking Status: Never smoker Alcohol: None Drugs: None - Family History Maternal History Items: Hypertension Paternal History Items: Diabetes Patient Problems: Active and Suspected Problems Acute UTI (Acute) Kidney transplant recipient (Acute) - Physical Exam General: Alert, Oriented x3 HEENT: Atraumatic, - - Weakness Oral: Moist Mucosa Neck: Supple, No JVD Lungs: Clear to auscultation, Normal air movement, No rhonchi, No wheeze, No rales Cardiovascular: Regular rate, Regular Rhythm, Normal S1, Normal S2, No murmurs Abdomen: Bowel Sounds Present, Soft, - - Suprapubic and right lower quadrant tenderness Extremities: No clubbing, No cyanosis, No edema Skin: No rashes Musculoskeletal: No Tenderness to Palpation of Joints or Extremities Lymphatic: No Cervical, Supraclavicular, or Inguinal Adenopathy Psych/Mental Status: Normal Affect Vital Signs Temp Pulse Resp BP Pulse Ox 98.4 F 93 16 116/69 95 07/15/17 08:30 07/15/17 08:30 07/15/17 08:30 07/15/17 08:30 07/15/17 08:30 Oxygen Flow Rate (L/min) 2 Oxygen Delivery Method Room Air Weight: 79.4 kg Body Mass Index (BMI) 23.7 Intake and Output for Last 24 Hours Intake Total 3756 / 3756 2017 Output Total 1480 / 1480 1075 / 1075 Balance 2276 / 2276 943 / 943 Laboratory Tests Past 24 Hrs WBC 6.3 RBC 4.60 Hgb 13.2 Hct 40.8 MCV 88.7 Assessment/Plan Active and Suspected Problems Acute UTI (Acute) Kidney transplant recipient (Acute) 1-chronic kidney disease stage III. Baseline creatinine around 1.6. Creatinine is stable. Electrolytes are okay. 2-end-stage renal disease S/P DULKT in 2016: Immunosuppressants : CellCept 500 mg twice a day and Prograf 2 mg twice a day. Please continue the same for now. 3-urinary tract infection: ID is following. On meropenem. Patient still has fever and abdominal pain. Patient is going to have a CAT scan to rule out pyelonephritis Thank you for the consult. I will continue to follow. Discussed with Dr.Sementi Darin Williamson MD 07/15/17 1007 <Electronically signed by Darin Williamson MD> Date Darin Williamson MD Cosigner Signature (if applicable): Date CC: Jose Bruno M.D.; Mike Bella MD; Cheng Santos MD Signed BASIC METABOLIC Collected: 07/15/2017 Status: F Source: MELVIN PROFILE (BMP) 5:43 AM [facility] REPOSITORY TYPE CODE TESTS RESULT OUT OF RANGE REFERENCE UNITS LAB L501.0100 74-106 mg/dL Normal GLU 101 Result Comment: Fasting Glucose result from 100 to 125 mg/dL suggests IMPAIRED HOMEOSTASIS per A.D.A. criteria. Please note revised GLUCOSE reference range effective 2017. LAB L501.1000 7-18 mg/dL Normal BUN 18 LAB L501.1100 0.70-1.30 mg/dL High CREAT,SERUM 1.54 Result Comment: The validity of the calculated GFR AND GFRAA in patients over 70 years has not been determined. Clinical correlation is essential. LAB L501.1110 >60 mL/min Low EST GFR 51 Result Comment: Non- GFR Calc LAB L501.1115 >60 mL/min Normal EST GFR - AA 62 Result Comment: GFR Calc LAB L501.1255 ml/min Normal Estimated CRCL 62.99 LAB L501.1300 10-20 RATIO Normal BUN/CRE 11.7 LAB L501.2200 8.5-10 mg/dL Low .1 CA 7.5 LAB L501.5300 136-14 mmol/L Normal 5 NA 140 LAB L501.5600 3.5-5. mmol/L Normal 1 K 4.0 LAB L501.5900 98-107 mmol/L High CL 112 LAB L501.6100 21.0-3 mmol/L Low 2.0 CO2 19.0 LAB L501.6200 5-15 Normal GAP 9 Performed By: #### L500.2500, L501.2300, L501.5200 #### [facility] [facility] [address] [place], [address] PHOSPHORUS Collected: 07/15/2017 Status: F Source: [place] 5:43 AM [facility] REPOSITORY TYPE CODE TESTS RESULT OUT OF RANGE REFERENCE UNITS LAB L501.2300 2.5-4.9 mg/dL Low PHOS 1.8 Performed By: #### L500.2500, L501.2300, L501.5200 #### [facility] [address] [place], [address] MAGNESIUM Collected: 07/15/2017 Status: F Source: [place] 5:43 AM [facility] REPOSITORY TYPE CODE TESTS RESULT OUT OF RANGE REFERENCE UNITS LAB L501.5200 1.6-2.6 mg/dL Normal MG 1.8 Result Comment: Please note revised Magnesium reference range effective 2017. Performed By: #### L500.2500, L501.2300, L501.5200 #### [facility] [address] [place], [address] CBC W/DIFF, AUTOMATED Collected: 07/15/2017 Status: C Source: [place] 5:43 AM [facility] REPOSITORY TYPE CODE TESTS RESULT OUT OF RANGE REFERENCE UNITS LAB L100.1000 4.4-11.0 K/mm3 Normal WBC 6.3 LAB L100.1200 4.6-6.2 M/mm3 Normal RBC 4.60 LAB L100.1300 13.0-16.5 g/dl Normal HGB 13.2 LAB L100.1400 40-54 % Normal HCT 40.8 LAB L100.1500 80-94 fL Normal MCV 88.7 LAB L100.1600 27.0-32.0 pg Normal MCH 28.7 LAB L100.1700 32-36 g/gl Normal MCHC 32.4 LAB L100.1810 11.6-14.6 % Normal RDW CV 14.1 LAB L100.1820 35.1-43.9 fl High RDW SD 45.1 LAB L100.1900 150-450 K/mm3 Low PLT 125 LAB L100.2000 6.2-12.0 fl Normal MPV 10.7 LAB L100.3100 MANUAL DIFF Normal CELLS COUNTED 100 LAB L100.3200 47-70 % High 71 SEGS LAB L100.3300 0-5 % High 11 BAND LAB L100.3800 19-41 % Low 13 LYMPH LAB L100.3900 0-10 % 5 Normal MONOCYTE LAB L100.5500 ADEQ Normal PLT EST MOD DEC LAB L100.7000 NORM C AND C NORMAL Normal RED CELL MORPH NORM C+C LAB L100.2620 2.0-7.7 X10 3/uL Normal Absolute Neut 5.2 LAB L100.2720 0.83-4.51 X10 3/ul Low Absolute Lymph 0.82 LAB L100.9900 Normal PATH REV Reviewed Result Comment: Neutrophilic left shift. Thrombocytopenia. Clinical correlation necessary. Lionel Peters M.D. 07/15/17 AMENDED REPORT 07/15/17 1455 PATH REV previously reported as: Yeny morales Performed By: #### L100.0100 #### [facility] [address] [place], [address] CONSULTATION Observed: 07/14/2017 Status: F Source: [place] 12:54 PM [facility] REPOSITORY [facility] Medical Records Department [address] [place] [address] Consultation 07/14/17 1212 MR#: [id number] Acct: [id number] Name: SKYLER PINZON Rep #: [id number] : 1965 52 From: Cheng Santos MD PCP: Mike Bella MD Status: ADM IN Y Location: [facility] [id number] ADDENDUM by Cheng Santos MD on 07/14/17 at 1254 Correction, recent renal/bladder u/s done as outpt 07/12, will cancel study here. 07/14/17 1254 <Electronically signed by Cheng Santos MD> Date Cheng Santos MD cc: Mike Bella MD; Cheng Santos MD * Signed Problem List (1) Acute UTI Status: Acute Reason for Consult: uti Consulted by: Dr. Russo History of Present Illness: The patient is a 52 year old M with MRDD, neurogenic bladder, and kidney transplant. Has been compliant with immunosuppression. Reports straight cath at home, but recently has been less frequent. Does not reuse catheters. Developed several days of central, continuous, 7/10 abd pain. Some fever, chills, general malaise, and nausea/vomiting. Came to ED, admitted on ceftriaxone last night, feeling a little better today. Full ROS performed and neg except as noted above. - Medical History Past Medical History (Chronic Problems): Chronic Problems CKD (chronic kidney disease), stage III (Chronic) Congenital nystagmus (Chronic) Mild MRDD (Chronic) DVT (deep venous thrombosis) (Chronic) Renal transplant, status post (Chronic) Neurogenic bladder disorder (Chronic) managed with cic Allergies/Adverse Reactions: Allergies No Known Allergies Allergy (Verified 07/13/17 21:32) Home Medications: Ambulatory Orders Medication Instructions Recorded Mycophenolate Mofetil [Cellcept] 500 mg PO BID 07/14/16 - Social History SMOKING STATUS:: Never smoker Vital Signs Temp Pulse Resp BP Pulse Ox 98.2 F 115 H 18 122/83 H 100 07/14/17 10:55 07/14/17 10:55 07/14/17 10:55 07/14/17 10:55 07/14/17 10:55 Oxygen Flow Rate (L/min) 2 Oxygen Delivery Method Room Air Weight: 79.4 kg Body Mass Index (BMI) 23.7 Laboratory Tests Past 24 Hrs WBC 4.1 L - Other Studies Radiology: [] reviewed Other Studies: [] Route of nutrition/ use of supplements: [] Nutritional Intake: [] IV Site: [] Ga Catheter: [] - Physical Exam General: Alert, Cooperative, No apparent distress HEENT: Atraumatic, PERRLA, EOMI Neck: Supple, No Nodes Lungs: Clear to auscultation, Normal air movement Cardiovascular: Regular rate, Regular Rhythm Abdomen: Bowel Sounds Present, Non-Distended, Tender - mild soreness Extremities: No edema Skin: No rashes IV Site: Peripheral, without redness Musculoskeletal: No Tenderness to Palpation of Joints or Extremities - Assessment/Plan Antibiotics: [] Assessment/Plan: [] Active and Suspected Problems Acute UTI (Acute) GNR pyelonephritis - GNR in urine, UA with heavy pyuria, and associated fever, tachypnea, tachycardia, nausea, and immunosuppression. Cont iv ceftriaxone. Will order abd u/s to eval transplanted kidney. Kidney transplant - cont bactrim prophylaxis Thank you, will follow. 07/14/17 1218 <Electronically signed by Cheng Santos MD> Date Cheng Santos MD Cosigner Signature (if applicable): Date CC: Mike Bella MD; Cheng Santos MD Signed CBC W/DIFF, AUTOMATED Collected: 07/14/2017 Status: C Source: [place] 6:20 AM [facility] REPOSITORY TYPE CODE TESTS RESULT OUT OF RANGE REFERENCE UNITS LAB L100.1000 4.4-11.0 K/mm3 Low WBC 4.1 LAB L100.1200 4.6-6.2 M/mm3 Normal RBC 5.02 LAB L100.1300 13.0-16.5 g/dl Normal HGB 14.3 LAB L100.1400 40-54 % Normal HCT 44.2 LAB L100.1500 80-94 fL Normal MCV 88.0 LAB L100.1600 27.0-32.0 pg Normal MCH 28.5 LAB L100.1700 32-36 g/gl Normal MCHC 32.4 LAB L100.1810 11.6-14.6 % Normal RDW CV 14.0 LAB L100.1820 35.1-43.9 fl High RDW SD 44.5 LAB L100.1900 150-450 K/mm3 Normal PLT 162 LAB L100.2000 6.2-12.0 fl Normal MPV 10.7 LAB L100.3100 MANUAL DIFF Normal CELLS COUNTED 100 LAB L100.3200 47-70 % High 78 SEGS LAB L100.3300 0-5 % High 6 BAND LAB L100.3400 0-1 % 1 Normal META LAB L100.3800 19-41 % Low 7 LYMPH LAB L100.3900 0-10 % 8 Normal MONOCYTE LAB L100.5500 ADEQ Normal PLT EST ADEQUATE LAB L100.7000 NORM C AND C NORMAL Normal RED CELL MORPH NORM C+C LAB L100.2620 2.0-7.7 X10 3/uL Normal Absolute Neut 3.4 LAB L100.2720 0.83-4.51 X10 3/ul Low Absolute Lymph 0.29 LAB L100.9900 Normal PATH REV Reviewed Result Comment: AMENDED REPORT 07/14/17 1101 PATH REV previously reported as: August carmen Performed By: #### L100.0100 #### [facility] [address] [place], [place], [address] BASIC METABOLIC Collected: 07/14/2017 Status: F Source: [place] PROFILE (BMP) 6:20 AM [facility] REPOSITORY TYPE CODE TESTS RESULT OUT OF RANGE REFERENCE UNITS LAB L501.0100 74-106 mg/dL High GLU 124 Result Comment: Fasting Glucose result from 100 to 125 mg/dL suggests IMPAIRED HOMEOSTASIS per A.D.A. criteria. Please note revised GLUCOSE reference range effective 2017. LAB L501.1000 7-18 mg/dL Normal BUN 15 LAB L501.1100 0.70-1.30 mg/dL High CREAT,SERUM 1.62 Result Comment: The validity of the calculated GFR AND GFRAA in patients over 70 years has not been determined. Clinical correlation is essential. LAB L501.1110 >60 mL/min Low EST GFR 48 Result Comment: Non- GFR Calc LAB L501.1115 >60 mL/min Low EST GFR - AA 58 Result Comment: GFR Calc LAB L501.1255 ml/min Normal Estimated CRCL 59.88 LAB L501.1300 10-20 RATIO Low BUN/CRE 9.3 LAB L501.2200 8.5-10 mg/dL Low .1 CA 7.5 LAB L501.5300 136-14 mmol/L Normal 5 NA 140 LAB L501.5600 3.5-5. mmol/L Normal 1 K 3.9 LAB L501.5900 98-107 mmol/L High CL 111 LAB L501.6100 21.0-3 mmol/L Normal 2.0 CO2 21.0 LAB L501.6200 5-15 Normal GAP 8 Performed By: #### L500.2500 #### [facility] [address] [place], [address] HISTORY AND PHYSICAL Observed: 07/14/2017 Status: F Source: [place] EXAM 1:05 AM [facility] REPOSITORY [facility] Medical Records Department [address] [place] [address] History and Physical 07/13/17 2336 MR#: [id number] Acct: [id number] Name: SKYLER PINZON Rep #: [id number] : 1965 52 From: Jesica Russo PCP: Mike Bella MD Status: ADM IN Y Location: [address] Problem List (1) Congenital nystagmus Status: Chronic (2) Mild MRDD Status: Chronic (3) DVT (deep venous thrombosis) Status: Chronic Qualifiers: Affected thrombotic vein of extremity: unspecified vein of extremity Chronicity: unspecified Laterality: unspecified laterality (4) Renal transplant, status post Status: Chronic (5) Neurogenic bladder disorder Status: Chronic Comment: managed with cic (6) CKD (chronic kidney disease), stage III Status: Chronic (7) Acute UTI Status: Acute History of Present Illness Date of Admission: 07/13/17 Chief Complaint: Fever, Nausea/Emesis, Suprapubic pain The patient is a 52 y/o M w/ PMHx: Mild MRDD with help from his family/sister, Congenital Nystagmus, CKD stage III (baseline Cr 1.6 currently, prior ESRD s/p Renal Txp), Renal Txp status on immunosuppressive therapy, Neurogenic bladder w/ self catheterization, Hx DVT who presents to the [facility] ED on 07/13/17 with history of onset fever 102, nausea, emesis in addition to suprapubic pain x 24 hours. He notes that he has not been catheterization as frequently as he should secondary to current family issues with sister assisting other family and less able to frequently remind him to self catheterize (should be q 4 hours during daytime hours she notes). In the ED work-up includes T 101.3, HR 113, BP 121/67, RR 18, 95% on 2L NC, CBC w/ WBC 4.3, Hgb 15, Plts 166 without marked L shift, normal coags, CMP w/ Chl 111, CO2 19, BUN/Cr 15/1.60, glucose 115, LA 1.1, TBili 1.30, UA concerning for UTI, CXR unremarkable. In the ED patient administered tylenol, rocephin, NS. Past Medical History Past Medical History (Chronic Problems): Chronic Problems CKD (chronic kidney disease), stage III (Chronic) Congenital nystagmus (Chronic) Mild MRDD (Chronic) DVT (deep venous thrombosis) (Chronic) Renal transplant, status post (Chronic) Neurogenic bladder disorder (Chronic) managed with cic Allergies No Known Allergies Allergy (Verified 07/13/17 21:32) Home Medications: Ambulatory Orders Medication Instructions Recorded Mycophenolate Mofetil [Cellcept] 500 mg PO BID 07/14/16 Surgical History: - - Right kidney transplant [facility], dialysis access prior. Psychiatric History: No pertinent psych hx Lives: Alone Smoking Status: Never smoker Tobacco Use: Non-smoker Alcohol: None Drugs: None - *Family History Maternal History Items: Hypertension Paternal History Items: Diabetes Review of Systems Constitutional: Reports: Anorexia, Chills, Fever, Malaise, Weakness, Fatigue. Denies: Weight Change HEENT: Denies: Head Aches, Sinus Congestion, Sinus Drainage Cardiovascular: Denies: Chest Pain, Palpitations Respiratory: Denies: Cough, Shortness of breath at rest, Sputum production Gastrointestinal: Reports: Abdominal Pain, Nausea, Vomiting Genitourinary: Reports: Retention. Denies: Dysuria Musculoskeletal: Denies: Joint Pain, Joint Tenderness Skin: Denies: Rash, Wounds Neurological: Denies: Numbness, Tingling, Focal weakness Psychiatric: Denies: Anxiety, Depression, Homicidal Ideations, Suicidal Ideations Hematologic/ Lymphatic: Denies: Easy Bruising, Easy Bleeding VTE Information - Inpt Only VTE Present on Admission: No VTE Mechan Device Prophylaxis: SCD's VTE Pharm Prophylaxis ordered?: Yes Patient Problems: Active and Suspected Problems Acute UTI (Acute) Subjective: Seated upright in the ED bed, fatigued appearing. Objective: Physical Examination: General: awake, alert, oriented x 3 and cooperative, seated upright in the ED bed in no apparent distress. Skin: normal color, turgor, no icterus, cyanosis. HEENT: AT/NC, EOMI, PERRLA, dry MM, mildly poor dentition, nystagmus present (chronic), no carotid bruits or JVD noted. Lungs: CTA bilaterally, moderate effort, moderate decrease BL bases, no rales, ronchi or wheezing. Heart: Tachycardic with regular rhythm; no gallop, rub audible. Abdomen: soft, + suprapubic TTP, ND, normal BS, no HSM, ga in place per ED. Extremities: no cyanosis, clubbing, or edema. Neurological: patient awake, alert, oriented x 3; cognitive function intact; pupils equally reactive to light and accomodation; cranial nerves II-XII grossly normal, moving all 4 extremities, no focal deficits, strength moderately to severely globally decreased secondary to acute presentation. Psychiatric: affect appears mildly flat, no acute evidence of depressive or anxiety feelings. - Physical Exam Vital Signs Temp Pulse Resp BP Pulse Ox 100 F H 121 H 18 123/67 H 95 07/13/17 23:28 07/13/17 23:28 07/13/17 23:28 07/13/17 23:28 07/13/17 23:28 Oxygen Flow Rate (L/min) 2 Oxygen Delivery Method Nasal Cannula Weight: 180 lb 8.937 oz Body Mass Index (BMI) 24.5 Microbiology Past 72 Hours 07/13/17 22:28 Influenza Types A,B Direct FA (NYA) - Final Mucosa - Nasopharyngeal Laboratory Tests Past 24 Hrs WBC 4.3 L RBC 5.28 Hgb 15.0 Hct 46.8 MCV 88.6 MCH 28.4 MCHC 32.1 RDW 13.9 RDW Differential 44.8 H Plt Count 166 Assessment/Plan Active and Suspected Problems Acute UTI (Acute) The patient is a 52 y/o M w/ PMHx: Mild MRDD with help from his family/sister, Congenital Nystagmus, CKD stage III (baseline Cr 1.6 currently, prior ESRD s/p Renal Txp), Renal Txp status on immunosuppressive therapy, Neurogenic bladder w/ self catheterization, Hx DVT who presents to the [facility] ED on 07/13/17 with history of onset fever 102, nausea, emesis in addition to suprapubic pain x 24 hours. (1) Acute Complicated Urinary Tract Infection complicated by Neurogenic Bladder and Self-Catheterization: Will admit to [facility] upon ED evaluation remarkable, pending UCx, continue IVFs, monitor I/Os, continue IV Rocephin w/ transition as able pending sensitivities and speciation. Bld cx x 2 obtained in the ED. Given complicated history s/p renal txp, will request ID evaluation also to be cautious. (2) Prior ESRD/CKD IV, currently CKD stage III, status post kidney transplant: Admission BUN/Cr 15/1.60, stable, baseline Cr 1.6, continue cellcept, prograf, bactrim prophylactic regimen. ID as noted consulted, pending. (3) Hypertension: Continue home regimen including norvasc, PRN hydralazine. (4) Mild mental retardation: Stable, family supportive, CM requested to assure assistance. (5) Chronic neurogenic bladder: As noted per #1, ga placed in the ED, will need aggressive education on appropriate catheterization, has been hesitant secondary to pain, planned upcoming re-evaluation per Dr. Crenshaw per family report. (6) DVT Prophylaxis: SCDs, heparin. Code Visit Inpatient E AND M: [id number] Init Hosp L3 07/14/17 0105 <Electronically signed by Jesica Russo > Date Jesica Russo Cosigner Signature: Date (if applicable) CC: Jesica Russo; Mike Bella MD Signed EMERGENCY DEPARTMENT Observed: 07/14/2017 Status: F Source: [place] SUMMARY 12:10 AM [facility] REPOSITORY [facility] Medical Records Department [address] [place] [address] Emergency Department Summary 07/13/17 2325 MR#: [id number] Acct: [id number] Name: SKYLER PINZON Rep #: [id number] : 1965 52 From: Claus Lisa MD PCP: Mike Bella MD Status: ADM IN - ER Visit Summary Date of Service: 07/13/17 Chief Complaint: Fever nausea and vomiting History of Present Illness: The patient is a 52 M presenting for evaluation secondary to fever nausea and vomiting. Patient has an underlying history of renal transplant and is on immunosuppression. Patient states that over the course last 2 days he has started to have some increasing fatigue, and then today this morning he developed fevers as high as 102 generalized malaise, cough, and one episode of nonbloody nonbilious emesis. Patient does self catheterize to urinate but denies any changes in his urination. Denies any diarrhea. Denies any headaches or neck stiffness. Review of systems otherwise negative. Physical Examination: Vital signs notable for a fever of 101.3 and a heart rate of 124 respiratory rate of 24. Well-nourished well-developed male no acute distress. Head normocephalic. Dry mucous membranes noted. Heart was tachycardic and regular. Lung sounds clear to auscultation bilaterally respirations nondistressed with mild tachypnea. Abdomen was soft and nontender. 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 Skin is palpably hot. Patient is alert and oriented with no lateralizing neurologic deficits. Test Results: EKG demonstrates sinus tachycardia rate of [address] segments normal T waves no changes from prior. CBC shows mild leukopenia with a white blood cell count of 4.3, a neutrophilic predominance of 85% with bands cells. Chemistry shows no anion gap but does show a CO2 of 19. Patient's creatinine was 1.6 which is at his baseline. Urinalysis demonstrates evidence of leukocytes blood and bacteria. Lactate found to be negative. Flu negative. Chest x-ray negative. Emergency Department Course and Treatment: Patient presented with a fever and generalized illness in the setting of being immunosuppressed. Sepsis workup was obtained including cultures of the blood in the urine. Patient was started on IV saline hydration was given a gram of Tylenol. Repeat evaluation did show improvement of his heart rate, but continued fever. Workup shows only bacteria and white cells in the urine which could potentially be chronic given his self cathing, but at this point that is the only source of infection that I have. Patient was given a gram of Rocephin and will be admitted under the hospitalist. Disposition: Admission Impression: 1. Sepsis 2. Urinary tract infection 3. History of immunosuppression 4. Chronic kidney disease This note was generated with Kaymbuation software. It may contain incorrect words, spelling, and punctuation that were not noted in review of the chart prior to signing ED Disposition - Plan for ED Patient: Chief Complaint: General Illness Referrals: Mike Bella MD [Primary Care Provider] - What to do if you have Problems For any increased pain, shortness of breath, bleeding, nausea or vomiting, chest pain, or any unexpected problems, contact your Primary Care Provider. Call [facility] ([phone]) or report to the closest Emergency Room. Call 911 if necessary. 07/14/17 0010 <Electronically signed by Claus Lisa MD> Date Claus Lisa MD Cosigner Signature (If Indicated): Date CC: Mike Bella MD URINALYSIS, COMPLETE Collected: 07/13/2017 Status: F Source: [place] 10:45 PM [facility] REPOSITORY Order Comment: How was Urine Obtained? CATHETER SPECIMEN TYPE CODE TESTS RESULT OUT OF RANGE REFERENCE UNITS LAB L400.3000 Yellow COLOR Normal Yellow LAB L400.3050 Clear Normal CLARITY Sl. Cloudy LAB L400.3200 Normal mg/dl Normal GLUCOSE, UR Normal LAB L400.3300 Negative mg/dL Normal BILIRUBIN URINE Negative LAB L400.3400 Negative mg/dl Normal KETONE UR Negative LAB L400.3465 1.002-1.030 Normal SP.GR. DIPSTX 1.015 LAB L400.3550 5.0 - 8.0 pH UR Normal 6.0 LAB L400.3600 Negative mg/dl High PROT 30 DIPSTX LAB L400.3700 Normal mg/dl Normal UROBILI Normal LAB L400.3750 Negative Normal NITRITE UR Negative LAB L400.3780 Negative /ul High OCCULT BLOOD-UR 250 LAB L400.3800 Negative /ul High LEUK ESTERASE 500 LAB L400.4050 0-5 /hpf WBC Normal >100 SEEN LAB L400.4100 0-5 /hpf Normal RBC-UA 25-50 SEEN LAB L400.4150 0-5 /hpf SQUAM Normal EPI 0-5 SEEN LAB L400.4300 None Seen /hpf 3+ Normal BACTERIA LAB L400.4350 <or=2+ /hpf 0 Normal MUCUS, URINE SEEN Performed By: #### L400.0001 #### [facility] [address] [place], [place], [address] Observed: 07/13/2017 Status: F Source: [place] CULTURE, URINE 10:45 PM [facility] REPOSITORY Urine Culture ORGANISM 1: Enterobacter aerogenes [facility] Count >100,000 Enterobacter aerogenes: REACTION Amoxacillin/Clavulanic Acid $ 8 R Cefazolin $ >=64 R Cefepime $ <=1 S Ceftriaxone $ 16 I Ciprofloxacin $ 0.5 S Ertapenim $$$ <=0.5 S Gentamicin $ <=1 S Imipenem *NF <=0.25 S Levofloxacin $ 1 S Nitrofurantoin $ 64 I Piperacillin/Tazobactam $$ <=4 S Tobramycin $ <=1 S Trimethoprim/Sulfametho $ >=320 R (NF) indicates non-formulary drug at [facility]. Approval by Infectious Disease Specialist required before non-formulary drugs may be ordered and/or dispensed. Performed By: #### M100.0650 #### [facility] [address] [place] [address]. [place], [place], [address] Observed: 07/13/2017 Status: F Source: [place] CULTURE, BLOOD (WB) 10:30 PM [facility] REPOSITORY BC No growth in 5 days. Performed By: #### M200.1000 #### [facility] [address] [place] [address]. [place], [address] Observed: 07/13/2017 Status: F Source: [place] INFLUENZA A+B (RAPID 10:28 PM [facility]) REPOSITORY Has pt arrived? Y FLU A/B Rapid Negative test results should be confirmed by culture. Order Rapid Viral Culture for Influenzae A+B ([id number]) if clinically indicated. Influenza Ag, Direct Presumptive NEGATIVE for Influenza A/B Antigen (See Note) Performed By: #### M101.0101 #### [facility]. [place], [place], [address] CBC W/DIFF, AUTOMATED Collected: 07/13/2017 Status: F Source: [place] 10:10 PM [facility] REPOSITORY TYPE CODE TESTS RESULT OUT OF RANGE REFERENCE UNITS LAB L100.1000 4.4-11.0 K/mm3 Low WBC 4.3 LAB L100.1200 4.6-6.2 M/mm3 Normal RBC 5.28 LAB L100.1300 13.0-16.5 g/dl Normal HGB 15.0 LAB L100.1400 40-54 % Normal HCT 46.8 LAB L100.1500 80-94 fL Normal MCV 88.6 LAB L100.1600 27.0-32.0 pg Normal MCH 28.4 LAB L100.1700 32-36 g/gl Normal MCHC 32.1 LAB L100.1810 11.6-14.6 % Normal RDW CV 13.9 LAB L100.1820 35.1-43.9 fl High RDW SD 44.8 LAB L100.1900 150-450 K/mm3 Normal PLT 166 LAB L100.2000 6.2-12.0 fl Normal MPV 10.5 LAB L100.2100 47-70 % High NEUT% 85.8 LAB L100.2200 19-41 % Low LY% 9.4 LAB L100.2300 0-10 % Normal MONO% 3.0 LAB L100.2400 0-5 % Normal EO% 0.0 LAB L100.2500 0-1 % Normal BASO% 0.2 LAB L100.2550 0.0-0.9 % High IM GRAN % 1.600 Result Comment: IG% - Immature Granulocytes (promyelocytes, myelocytes and metamyelocytes) > 1% indicates that a LEFT SHIFT is Present. LAB L100.2620 2.0-7.7 X10 3/uL Normal Absolute Neut 3.7 LAB L100.2720 0.83-4.51 X10 3/ul Low Absolute Lymph 0.41 LAB L100.4500 Normal SMEAR COMMENT SCANNED Result Comment: LYMPHOPENIA NOTED Performed By: #### L100.0100 #### [facility] [address] [place], [place], [address] PROTHROMBIN TIME W/INR Collected: 07/13/2017 Status: F Source: [place] 10:10 PM [facility] REPOSITORY TYPE CODE TESTS RESULT OUT OF RANGE REFERENCE UNITS LAB L300.4150 11.7-14.9 SECONDS Normal PROTIME 14.1 LAB L300.4200 Normal INR 1.1 Performed By: #### L300.3900, L300.4310 #### [facility] [address] [place], [place], [address] PARTIAL THROMBOPLAST Collected: 07/13/2017 Status: F Source: [place] TIME 10:10 PM [facility] REPOSITORY TYPE CODE TESTS RESULT OUT OF RANGE REFERENCE UNITS LAB L300.4310 24.1-36.2 Seconds Normal PTT 29.0 Performed By: #### L300.3900, L300.4310 #### [facility] [address] [place], [address] COMPREHENSIVE METABOLIC Collected: 07/13/2017 Status: F Source: [place] PROFIL 10:10 PM [facility] REPOSITORY TYPE CODE TESTS RESULT OUT OF RANGE REFERENCE UNITS LAB L501.0100 74-106 mg/dL High GLU 115 Result Comment: Fasting Glucose result from 100 to 125 mg/dL suggests IMPAIRED HOMEOSTASIS per A.D.A. criteria. Please note revised GLUCOSE reference range effective 2017. LAB L501.1000 7-18 mg/dL Normal BUN 15 LAB L501.1100 0.70-1.30 mg/dL High CREAT,SERUM 1.60 Result Comment: The validity of the calculated GFR AND GFRAA in patients over 70 years has not been determined. Clinical correlation is essential. LAB L501.1110 >60 mL/min Low EST GFR 49 Result Comment: Non- GFR Calc LAB L501.1115 >60 mL/min Low EST GFR - AA 59 Result Comment: GFR Calc LAB L501.1255 ml/min Normal Estimated CRCL 60.63 LAB L501.1300 10-20 RATIO Low BUN/CRE 9.4 LAB L501.1500 6.4-8. g/dL Normal 2 T PROT 7.4 LAB L501.1800 3.2-5. g/dL Normal 0 ALB 4.1 LAB L501.1950 2.2-4. g/dL Normal 2 GLOB 3.3 LAB L501.2000 0.9-2. RATIO Normal 4 A/G 1.2 LAB L501.2200 8.5-10 mg/dL Low .1 CA 8.0 LAB L501.4100 15-37 U/L Normal AST 23 LAB L501.4305 45-117 U/L Normal ALK P 60 LAB L501.4405 16-61 U/L Normal ALT 26 Result Comment: Please note revised ALT reference range effective 2017. LAB L501.4600 0.20-1.00 mg/dL High T BILI 1.30 LAB L501.5300 136-145 mmol/L Normal NA 141 LAB L501.5600 3.5-5.1 mmol/L Normal K 3.9 LAB L501.5900 98-107 mmol/L High CL 111 LAB L501.6100 21.0-32.0 mmol/L Low CO2 19.0 LAB L501.6200 5-15 Normal GAP 11 Performed By: #### L500.4050 #### [facility] [address] [place], [address] LACTIC ACID Collected: 07/13/2017 Status: F Source: MODESTO 10:10 PM [facility] REPOSITORY Order Comment: Yes/No query for Sepsis Lactate Rule Y TYPE CODE TESTS RESULT OUT OF RANGE REFERENCE UNITS LAB L503.6005 0.4-2.0 mmol/L Normal LACTIC ACID 1.1 Performed By: #### L503.6005 #### [facility] [address] [place], [address] MAGNESIUM Collected: 07/13/2017 Status: F Source: MODESTO 10:10 PM [facility] REPOSITORY TYPE CODE TESTS RESULT OUT OF RANGE REFERENCE UNITS LAB L501.5200 1.6-2.6 mg/dL Low MG 1.4 Result Comment: Please note revised Magnesium reference range effective 2017. Performed By: #### L501.5200 #### [facility] [address] [place], [address] Observed: 07/13/2017 Status: F Source: MELVIN CULTURE, BLOOD (WB) 10:10 PM [facility] REPOSITORY BC No growth in 5 days. Performed By: #### M200.1000 #### [facility] [address] [place], [address] CHEST 1 VIEW Observed: 07/13/2017 Status: F Source: MELVIN (PORTABLE) 9:48 PM [facility] REPOSITORY [facility] Imaging Services [address] [place] [address] Chest 1 View (Portable) MR#: [id number] Acct: [id number] Name: SKYLER PINZON Rep #: [id number] : 1965 M 52 From: Hans Wong MD PCP: Mike Bella MD Status: REG ER Study: Chest 1 View (Portable) Date of Exam: 07/13/17 Exam# [id number] Ordering Dr: Claus Lisa MD STUDY: X-RAY CHEST REASON FOR EXAM: Male, 52 years old. , cough, and abdominal pain TECHNIQUE: Single AP portable view of the chest. fever COMPARISON: None. FINDINGS: The lungs are clear and expanded. There is no demonstrated pleural abnormality. Normal size heart. Normal mediastinum and [place]. Normal visualized pulmonary arteries. Normal visualized aortic arch and descending thoracic aorta. Normal visualized thoracic spine. Normal visualized ribs, clavicles, and shoulders. There is no demonstrated abnormality of the visualized soft tissue structures of the upper abdomen. RAD/Chest 1 View (Portable) IMPRESSION: Normal x-ray examination of the chest. Electronically Signed: Hans Wong MD at 22:44 EDT , Service support , CC: Claus Lisa; Mike Bella MD Admitted Attorneys: Signed KIDNEY AND BLADDER Observed: 07/12/2017 Status: F Source: MELVIN 10:49 AM [facility] REPOSITORY [facility] Imaging Services [address] [place] [address] Kidney and Bladder MR#: [id number] Acct: [id number] Name: SKYLER PINZON Rep #: [id number] : 1965 M 52 From: Hans Wong MD PCP: Mike Bella MD Status: REG CLI Study: Kidney and Bladder Date of Exam: 07/12/17 Exam# [id number] Ordering Dr: Litzy Kern DEHORNER-C STUDY: RENAL ULTRASOUND - COMPLETE REASON FOR EXAM: Male, 52 years old. HEMATURIA, CKD AND H/O RT RENAL TRANSPLANT TECHNIQUE: Ultrasound evaluation of the kidneys was performed with real-time and static cruz-scale imaging. COMPARISON: US Kidneys Bilateral Jul 15 2016 10:10am . FINDINGS: RIGHT KIDNEY: with moderate renal atrophy. The right kidney measures 6.9X2.8X3.2 cm. There is diffuse thinning of the renal cortex. The renal cortex measures 0.6 cm. Right renal cyst measuring 10 x 10 mm. There are no right renal calculi. There is moderate hydronephrosis of the right kidney. DISTAL RIGHT URETER: There is non-visualization of the distal right ureter. There is no demonstrated right ureterovesical junction calculus. There is no demonstrated right ureteral jet. Right renal transplant kidney: 10 x 4.4 x 4.6cm in size. Cortex is 17mm. LEFT KIDNEY: NOT SEEN. DISTAL LEFT URETER: There is no demonstrated left ureteral jet. BLADDER: There is a diffusely thickened wall of the distended bladder. Echogenic debris is seen within the dependent aspect of the urinary bladder. There are no demonstrated bladder calculi. US/Kidney and Bladder IMPRESSION: Atrophic right qagan tayagungin kidney. There is moderate hydronephrosis of the right kidney. There is a diffusely thickened wall of the distended bladder. Echogenic debris is seen within the dependent aspect of the urinary bladder. Unremarkable right renal transplant kidney. Electronically Signed: Hans Wong MD at 17:37 EDT , Service support , CC: Mike Bella MD; Litzy Kern NP Admitted Attorneys: Signed CBC-COMPLETE BLOOD CNT Collected: 06/04/2017 Status: F Source: MELVIN NO DIFF 8:17 AM [facility] REPOSITORY TYPE CODE TESTS RESULT OUT OF RANGE REFERENCE UNITS LAB L100.1000 4.4-11.0 K/mm3 Normal WBC 5.0 LAB L100.1200 4.6-6.2 M/mm3 Normal RBC 5.17 LAB L100.1300 13.0-16.5 g/dl Normal HGB 14.5 LAB L100.1400 40-54 % Normal HCT 45.7 LAB L100.1500 80-94 fL Normal MCV 88.4 LAB L100.1600 27.0-32.0 pg Normal MCH 28.0 LAB L100.1700 32-36 g/gl Low MCHC 31.7 LAB L100.1810 11.6-14.6 % Normal RDW CV 13.5 LAB L100.1820 35.1-43.9 fl Normal RDW SD 43.4 LAB L100.1900 150-450 K/mm3 Normal PLT 224 LAB L100.2000 6.2-12.0 fl Normal MPV 9.8 Performed By: #### L100.0500 #### [facility] [address] [place], [address] RENAL PROFILE Collected: 06/04/2017 Status: F Source: MELVIN 8:17 AM [facility] REPOSITORY Order Comment: Comments: RED TOP SERUM,ROOM TEMP TYPE CODE TESTS RESULT OUT OF RANGE REFERENCE UNITS LAB L501.0100 70-110 mg/dL Normal GLU 90 LAB L501.1000 7-18 mg/dL High BUN 26 LAB L501.1100 0.70-1.30 mg/dL High 1.46 CREAT,SERUM Result Comment: The validity of the calculated GFR AND GFRAA in patients over 70 years has not been determined. Clinical correlation is essential. LAB L501.1110 >60 mL/min Low EST GFR 54 Result Comment: Non- GFR Calc LAB L501.1115 >60 mL/min Normal EST GFR - AA 66 Result Comment: GFR Calc LAB L501.1300 10-20 RATIO Normal BUN/CRE 17.8 LAB L501.1800 3.2-5.0 g/dL Normal ALB 3.6 LAB L501.2200 8.5-10.1 mg/dL Low CA 8.2 LAB L501.2300 2.5-4.9 mg/dL Low PHOS 2.3 LAB L501.5300 136-145 mmol/L NA Normal 141 LAB L501.5600 3.5-5.1 mmol/L K Normal 4.3 LAB L501.5900 98-107 mmol/L High CL 112 LAB L501.6100 21.0-32.0 mmol/L Normal CO2 22.0 Performed By: #### L500.3600 #### [facility] [address] [place], [address] MISCELLANEOUS LAB Collected: 06/04/2017 Status: F Source: MELVIN PROCEDURE 8:17 AM [facility] REPOSITORY Order Comment: Comments: RED TOP SERUM,ROOM TEMP Test(s) Ordered: [id number] TYPE CODE TESTS RESULT OUT OF RANGE REFERENCE UNITS LAB L801.1541 Normal [facility] LAB TEST Result Comment: TEST RESULT LIMITS Mycophenolic Acid and Metabo. Mycophenolic Acid 2.3 ug/mL 1.0 - 3.5 Mycophenolic Acid Glucuronide 28 ug/mL 15 - 125 TESTING PERFORMED AT [facility]. ORIGINAL REPORT ON FILE IN LAB CONTAINS ADDITIONAL TEST SITE INFORMATION. Performed By: #### L801.1541 #### [facility] [address] [place], [address] TACROLIMUS Collected: 05/11/2017 Status: F Source: UNIVERSITY 12:00 AM [facility] REPOSITORY TYPE CODE TESTS RESULT OUT OF REFERENCE UNITS RANGE LAB FK506(LOIN 2.0 - 15.0 ng/mL C) TACROLIMUS 9.4 Result Comment: NOTE: Result was obtained using a chemiluminescent microparticle immunoassay (CMIA) on the [employer] i system. Optimal therapeutic ranges for immuno- suppressant drugs depend upon an individual patient's current clinical state, type of organ transplant, time post-transplant, co-administration of other immunosuppressants, and other clinical factors. The results of this test should be correlated with additional clinical and laboratory data before changes in treatment regimens are made. Performed By: #### FK506 #### [facility] [address] [place], [place] [id number] CBC-COMPLETE BLOOD CNT Collected: 05/04/2017 Status: F Source: MELVIN NO DIFF 8:15 AM [facility] REPOSITORY TYPE CODE TESTS RESULT OUT OF RANGE REFERENCE UNITS LAB L100.1000 4.4-11.0 K/mm3 Normal WBC 5.8 LAB L100.1200 4.6-6.2 M/mm3 Normal RBC 5.48 LAB L100.1300 13.0-16.5 g/dl Normal HGB 15.7 LAB L100.1400 40-54 % Normal HCT 48.5 LAB L100.1500 80-94 fL Normal MCV 88.5 LAB L100.1600 27.0-32.0 pg Normal MCH 28.6 LAB L100.1700 32-36 g/gl Normal MCHC 32.4 LAB L100.1810 11.6-14.6 % Normal RDW CV 14.1 LAB L100.1820 35.1-43.9 fl High RDW SD 46.0 LAB L100.1900 150-450 K/mm3 Normal PLT 180 LAB L100.2000 6.2-12.0 fl Normal MPV 10.7 Performed By: #### L100.0500 #### [facility] [address] [place], [place], [address] RENAL PROFILE Collected: 05/04/2017 Status: F Source: MELVIN 8:15 AM [facility] REPOSITORY TYPE CODE TESTS RESULT OUT OF RANGE REFERENCE UNITS LAB L501.0100 70-110 mg/dL Normal GLU 89 LAB L501.1000 7-18 mg/dL High BUN 23 LAB L501.1100 0.70-1.30 mg/dL High 1.64 CREAT,SERUM Result Comment: The validity of the calculated GFR AND GFRAA in patients over 70 years has not been determined. Clinical correlation is essential. LAB L501.1110 >60 mL/min Low EST GFR 48 Result Comment: Non- GFR Calc LAB L501.1115 >60 mL/min Low EST GFR - AA 58 Result Comment: GFR Calc LAB L501.1300 10-20 RATIO Normal BUN/CRE 14.0 LAB L501.1800 3.4-5.0 g/dL Normal ALB 4.0 Result Comment: Please note revised Albumin AND Globulin reference range effective 2017. LAB L501.2200 8.5-10.1 mg/dL Low CA 7.9 LAB L501.2300 2.5-4.9 mg/dL Low PHOS 1.8 LAB L501.5300 136-145 mmol/L Normal NA 138 LAB L501.5600 3.5-5.1 mmol/L Normal K 3.8 LAB L501.5900 98-107 mmol/L Normal CL 106 LAB L501.6100 21.0-32.0 mmol/L Normal CO2 24.0 Performed By: #### L500.3600 #### [facility] [address] [facility]. [place], [place], [address] TACROLIMUS Collected: 04/21/2017 Status: F Source: [facility] 3:09 PM [facility] REPOSITORY TYPE CODE TESTS RESULT OUT OF REFERENCE UNITS RANGE LAB FK506(LOIN 2.0 - 15.0 ng/mL C) TACROLIMUS 3.6 Result Comment: NOTE: Result was obtained using a chemiluminescent microparticle immunoassay (CMIA) on the Golf Caddie i system. Optimal therapeutic ranges for immuno- suppressant drugs depend upon an individual patient's current clinical state, type of organ transplant, time post-transplant, co-administration of other immunosuppressants, and other clinical factors. The results of this test should be correlated with additional clinical and laboratory data before changes in treatment regimens are made. Performed By: #### FK506 #### [facility] [address] [place] [id number] ALLERGIES ALLERGIES DATE TYPE / CODE NAME / CODE REACTION SEVERITY SOURCE 12/22/2017 Drug No Known Unknown [facility] Allergy/4160 Allergies/F00 [facility] 72294(SNOMED 5162055(RXNOR Repository CT) M) ENCOUNTERS ENCOUNTERS ADMIT/DISCHARGE ACCOUNT ADMITTING ENCOUNTER LOCATION SOURCE NUMBER CLASS 04/14/2018 [id number] [facility] Repository 04/13/2018 [id number] [facility] Hospital ing:OLS.AVED Repository 04/11/2018 [id number] Ambulatory [facility] Hospital ing:LAB Repository 04/06/2018 [id number] [facility] Hospital ing:OLS.AVED Repository 03/30/2018 [id number] [facility]OLS.AVED Repository 03/23/2018 [id number] [facility] Hospital ing:OLS.AVED Repository 03/16/2018 [id number] [facility] ing:OLS.AVED Repository 03/15/2018 [id number] [facility] Repository 03/09/2018 [id number] Ambulatory [facility] Hospital ing:OLS.AVED Repository 03/02/2018 [id number] [facility]ulatory [facility] ing:OLS.AVED Repository 02/23/2018/02/25/20 [id number] Emergency [address] Hospital ing:ED Repository 02/23/2018 [id number] Ambulatory [facility] Hospital ing:OLS.AVED Repository 02/16/2018 [id number] [facility]ulatory [facility] ing:OLS.AVED Repository 02/09/2018 [id number] [facility]ulatory [facility] Hospital ing:OLS.AVED Repository 02/02/2018 [id number] [facility] Hospital ing:OLS.AVED Repository 01/16/2018/02/02/20 [id number] Gentry, Mikey Chi Inpatient [address] Hospital ing:TCURoom: Repository CDT30Dvh: 1 01/11/2018/01/17/20 [id number] White, [facility] ing:BS8Zjom: Repository DW318Iev: 1 01/11/2018 [id number] White, Ambulatory BMSBuilding:[place] Repository 01/11/2018 [id number] White, Ambulatory BMSBuilding:B [place].[facility] Repository 01/11/2018 [id number] White, Ambulatory BMSBuilding:B [place].[facility] Repository 01/11/2018 [id number] White, Ambulatory BMSBuilding:B [place].[facility] Repository 01/11/2018 [id number] White, Ambulatory BMSBuilding:B [place].[facility] Repository 01/11/2018 [id number] White, Ambulatory BMSBuilding:B [place].[facility] Repository 12/22/2017/12/23/19 [id number] Ambulatory BMSBuilding:B [place] 18 [place].[facility] Repository 12/20/2017/12/21/19 [id number] Ambulatory [address] ing:LAB Repository 12/11/2017 [id number] Ambulatory [facility] ing:CT Repository 12/09/2017/12/10/19 [id number] Ambulatory BMSBuilding:B [place] 18 [place].[facility] Hospital Repository 12/07/2017/12/08/19 [id number] Emergency [address] Hospital ing:ED Repository 12/02/2017 [id number] Ambulatory [facility] Repository 11/23/[id number] Maddie Ambulatory [facility] Repository 11/19/2017/11/20/19 [id number] Ambulatory [address] ing:LAB Repository 10/30/2017 [id number] Ambulatory [facility] ing:RAD.RALPHUR Repository E 10/21/2017/10/22/19 [id number] Ambulatory [address] ing:LAB Repository 10/20/2017 [id number] [facility] Hospital ing:MTRAD Repository 09/28/2017/09/30/19 [id number] Emergency [place] [facility] Hospital ing:ED Repository 09/23/2017 [id number] [facility] Hospital ing:MTRAD Repository 09/20/2017/09/21/19 [id number] Ambulatory [place] [address] [place] [address] Hospital ing:LAB Repository 09/11/2017 [id number] Ambulatory BMSBuilding:B [place] Repository 09/11/2017/09/12/19 [id number] RafaelaJesica Inpatient [place] 18 [facility] ing:CM6Ohkm: Repository TI925Vtf: 1 09/11/2017 [id number] Jesica Russo Ambulatory BMSBuilding:B [place] MS.CF.[facility] Repository 09/09/2017 [id number] [facility] Hospital ing:MTRAD Repository 08/20/2017/08/21/19 [id number] Ambulatory [place] [address] [place] [address] Hospital ing:LAB Repository 08/18/2017/08/19/19 [id number] Ari Ambulatory [place] 18 [facility] Hospital ing:ZO8Dkcx: Repository HS408Lhd: 1 08/18/2017 [id number] Ari Ambulatory BMSBuilding:B [place] Luis Armando [place].[facility] Repository 08/04/2017/01/19/20 [id number] Ambulatory [place] [address] [place] [address] Hospital ing:CCN Repository 07/28/2017/07/29/19 [id number] Emergency [place] [address] [place] [address] Hospital ing:ED Repository 07/22/2017/07/23/19 [id number] Ambulatory [place] [facility] Hospital ing:LAB Repository 07/21/2017/07/22/19 [id number] Ambrosio Solis Ambulatory [place] [address] [place] [address] Hospital ing:PCURoom: Repository [id number]: 1 07/21/2017 [id number] Ambrosio Solis Ambulatory BMSBuilding:B [place].[facility] Repository 07/13/2017/07/19/19 [id number] White, Jesica Inpatient [address] ing:FM5Trkt: Repository LC120Wvu: 1 07/13/2017 [id number] White, Jesica Ambulatory BMSBuilding:B [place] Repository 07/13/2017 [id number] White, Jesica Ambulatory BMSBuilding:B [place].[facility] Repository 07/13/2017 [id number] White, Jesica Ambulatory BMSBuilding:B [place] Repository 07/13/2017 [id number] White, Jesica Ambulatory BMSBuilding:B [place].[facility] Repository 07/13/2017 [id number] White, Jesica Ambulatory BMSBuilding:B [place] Repository 07/13/2017 [id number] White, Jesica Ambulatory BMSBuilding:B [place] Repository 07/12/2017 [id number] [facility] ing:US Repository 07/06/[id number] Jeanne Ambulatory [facility] Repository 06/18/2017/06/18/[id number] ing:LAB Repository 05/28/2017/05/28/[id number] ing:LAB Repository PAYERS PAYERS ENCOUNTER GUARANTOR PAYER SUBSCRIBER SOURCE 04/14/2018 SKYLER L STYPEDOB: Primary SKYLER L STYPEDOB: [place] [id number] Insurance:[employer] [id number] [place] [address] Number: 3 [facility] Repository [address] # [id number] [address] Date:2167-24-05Qvwk [place] [address]Krl: (951) Name:[facility] [address]Eik: ( [id number] [place] [phone] () 17218AY: 04/14/2018 Secondary SKYLER L STYPEDOB: University Insurance:[facility] [id number] Repository Number: APT. # [id number] [address] [place] [address] Date:Plan Name:[facility] [address]Atu: () 04/14/2018 Tertiary SKYLER L STYPEDOB: University Insurance:MedicarePoli [id number] Hospitals cy Number: [address] [place] [address] Repository [id number] APT[address] # Date:[facility] [address] [place] [address]Btx: () 04/14/2018 Tertiary SKYLER L STYPEDOB: University Insurance:MedicarePoli [id number] Hospitals cy Number: [address] [place] [address] Repository [id number] [address] # Date:Plan Name:[facility] Gar[facility] [address] [place] [address]Uac: () 04/13/2018 SKYLER L [id number] Primary Insurance:SELF NOT GIVENUNK [address] Number: Effective Hospital [id number]: (330) Date:2018-04-13 Repository [id number] () 04/11/2018 SKYLER L [id number] Primary SKYLER L ST[facility]OB: [facility] Insurance:MEDICARE [id number] PART A BPolicy Number: Hospital [id number]: (330) [id number] Repository 210 () Date:2017-06-04 04/11/2018 Secondary SKYLER L STYPEDOB: [place] Insurance:CIGNAPolicy [id number] Community Number: Hospital [id number] Repository Date:0158-82-36HH ABDOUL [address]TT[place], [place] [address]YF: 04/11/2018 Tertiary NOT GIVENUNK [place] Insurance:SELF PAY [facility] Number: Effective Repository Date:2018-01-04 04/06/2018 Skyler L [id number] Primary Insurance:SELF NOT GIVENUNK [place] [address] PAY [address] Number: Effective Hospital [id number]: (330) Date:2018-04-06 Repository 262 (HP) 03/30/2018 Skyler L [id number] Primary Insurance:SELF NOT GIVENUNK [facility] [address] PAY INS[address]ANCE[address] Number: Effective Hospital [id number]: (330) Date:2018-03-30 Repository 262 (HP) 03/23/2018 Skyler L [id number] Primary Skyler L StypeDOB: [place] [address] Insurance:CIGNAPolicy [id number], [place] Number: Hospital [address]Fyi: (330) [id number] Repository (HP) Date:[id number] [facility] [address], [place] [address]CA: 03/23/2018 Secondary Skyler L StypeDOB: [place] Insurance:MEDICARE [id number] Community PART A BPolicy Number: Hospital [id number] Repository Date:2018-03-23 03/23/2018 Tertiary NOT GIVENUNK [place] Insurance:SELF PAY [facility] Number: Effective Repository Date:2018-03-23 03/16/2018 Skyler L [id number] Primary Insurance:SELF NOT GIVENUNK [facility] PAY [address] Number: Effective Hospital [phone]: (330) Date:2018-03-16 Repository (HP) 03/15/2018 SKYLER L STYPEDOB: Primary SKYLER L STYPEDOB: University Insurance:MedicarePoli [id number] [place] [address] cy Number: 3 [facility] Repository [address]T. # [id number] [address], [place] Date:Plan Name:Candis Prieto [address] [place] [phone]: [phone]: (HP) 262 (HP) 03/15/2018 Secondary SKYLER L STYPEDOB: University Insurance:MedicarePol [id number] Hospitals cy Number: 3 [facility] Repository [id number] [address]T. # Date:Plan Name:Candis De La Garza [address] [place] [address]Fex: (HP) 03/15/2018 Tertiary SKYLER L STYPEDOB: University Insurance:[facility] Health [id number] Hospitals PlanPolicy Number: 3 [facility] Repository [id number] APT. # Date:5871-11-86Lgzt [address] [place] [address] Name:[facility] [address]Ytx: [phone] [id number], [place] [phone] () [address]SD: 03/15/2018 Tertiary SKYLER L STYPEDOB: University Insurance:[facility] [id number] Hospitals HealthcarePolicy 3 [facility] Repository Number: APT. # [id number] [address] [place] [address] Date:Plan Name:[place] [address]Tel: () 03/09/2018 Skyler L [id number] Primary Insurance:SELF NOT GIVENUNK [facility] PAY [address] Number: Effective Hospital [id number]: (330) Date:2018-03-09 Repository [phone] (HP) 03/02/2018 SKYLER L [id number] Primary Insurance:SELF NOT GIVENUNK [facility] PAY [address] Number: Effective Hospital [id number]: (330) Date:2018-03-02 Repository [phone] (HP) 02/23/2018 SKYLER L [id number] Primary SKYLER L STYPEDOB: [facility] Insurance:MEDICARE [id number] PART A BPolicy Number: Hospital [id number]: (578) [id number] Repository [phone] (HP) Date:2018-02-23 02/23/2018 Secondary SKYLER L STYPEDOB: [place] [facility] [id number] Community Number: Hospital [id number] Repository Date:0589-01-17SC [address]LADWYJDJDLB, [place] [address]ZD: 02/23/2018 Tertiary NOT GIVENUNK [place] Insurance:SELF PAY [facility]ly [facility] Number: Effective Repository Date:2018-02-23 02/23/2018 SKYLER L [id number] Primary Insurance:SELF NOT GIVENUNK [place] [address] PAY [address], [place] Number: Effective Hospital [id number]: [phone]) Date:2018-02-23 Repository [phone] (HP) 02/16/2018 SKYLER L [id number] Primary Insurance:SELF NOT GIVENUNK [place] [address] PAY [address] Number: Effective Hospital [id number]: (330) Date:2018-02-16 Repository [phone] (HP) 02/09/2018 SKYLER L [id number] Primary Insurance:SELF NOT GIVENUNK [place] [address] PAY [address] [place] Number: Effective Hospital [id number]: (330) Date:2018-02-09 Repository [phone] (HP) 02/02/2018 SKYLER L [id number] Primary Insurance:SELF NOT GIVENUNK [place] [address] PAY [address] Number: Effective Hospital [id number]: (330) Date:2018-02-02 Repository [phone] (HP) 01/16/2018 SKYLER L [id number] Primary SKYLER L STYPEDOB: [place] [address] Insurance:MEDICARE [id number] PART A BPolicy Number: Hospital [id number]: (730) [id number] Repository [phone] (HP) Date:2018-01-16 01/16/2018 Secondary SKYLER L STYPEDOB: [place] Insurance:CIGNAPolicy [id number] Community Number: Hospital [id number] Repository Date:0562-42-17MP [address]FGYNKNAVLVO, [place] [address]WL: 01/16/2018 Tertiary NOT GIVENUNK [place] Insurance:SELF PAY [facility] Number: Effective Repository Date:2018-01-16 01/11/2018 SKYLER L [id number] Primary SKYLER L STYPEDOB: [place] [address] Insurance:MEDICARE [id number] PART A BPolicy Number: Hospital [id number]: (741) [id number] Repository [phone] (HP) Date:2018-01-11 01/11/2018 Secondary SKYLER L STYPEDOB: [place] Insurance:CIGNAPolicy [id number] Community Number: Hospital [id number] Repository Date:0452-08-63TF [address]RORRGTCMAWJ, [place] [address]KY: 01/11/2018 Tertiary NOT GIVENUNK [place] Insurance:SELF PAY Community [facility] Number: Effective Repository Date:2018-01-11 01/11/2018 SKYLER L [id number] Primary SKYLER L STYPEDOB: [place] [address] Insurance:MEDICARE [id number] [address] PART A BPolicy Number: Hospital [id number]: 330 [id number] Repository [phone] (HP) Date:2018-01-11 01/11/2018 Secondary SKYLER L STYPEDOB: [place] Insurance:CIGNAPolicy [id number] Community Number: Hospital [id number] Repository Date:0387-73-21AV [address]MZZHPQLDMDQ, [place] [address]HE: 01/11/2018 Tertiary NOT GIVENUNK [place] Insurance:SELF PAY Community [facility] Number: Effective Repository Date:2018-01-11 01/11/2018 SKYLER L [id number] Primary SKYLER L STYPEDOB: [place] [address] Insurance:MEDICARE [id number] [address] PART A BPolicy Number: Hospital [id number]: (129) [id number] Repository [phone] (HP) Date:2018-01-11 01/11/2018 Secondary SKYLER L STYPEDOB: [place] Insurance:CIGNAPolicy [id number] Community Number: Hospital [id number] Repository Date:4664-09-01KI [address]VOBQXWNVYVK, [place] [address]DJ: 01/11/2018 Tertiary NOT GIVENUNK [place] Insurance:SELF PAY Community [facility] Number: Effective Repository Date:2018-01-11 01/11/2018 SKYLER L [id number] Primary SKYLER L STYPEDOB: [place] [address] Insurance:MEDICARE [id number] [address] PART A BPolicy Number: Hospital [id number]: (643) [id number] Repository [phone] (HP) Date:2018-01-11 01/11/2018 Secondary SKYLER L STYPEDOB: [place] Insurance:CIGNAPolicy [id number] Community Number: [facility] [id number] Repository Date:2075-27-49LU [address]XAEVBBXUMHT, [place] [address]BQ: 01/11/2018 Tertiary NOT GIVENUNK [place] Insurance:SELF PAY Community [facility] Number: Effective Repository Date:2018-01-11 01/11/2018 SKYLER L [id number] Primary SKYLER L STYPEDOB: [place] [address] Insurance:MEDICARE [id number] [address] PART A BPolicy Number: Hospital [id number]: (989) [id number] Repository [phone] (HP) Date:2018-01-11 01/11/2018 Secondary SKYLER L STYPEDOB: [place] Insurance:CIGNAPolicy [id number] Community Number: Hospital [id number] Repository Date:9225-77-83UU [address]LEDQCUZXKPD, [place] [address]CE: 01/11/2018 Tertiary NOT GIVENUNK [place] Insurance:SELF PAY Community [facility] Number: Effective Repository Date:2018-01-11 01/11/2018 SKYLER L [id number] Primary SKYLER L STYPEDOB: [place] [address] Insurance:MEDICARE [id number] [address] PART A BPolicy Number: Hospital [id number]: [phone]) [id number] Repository [phone] () Date:2018-01-11 01/11/2018 Secondary SKYLER L STYPEDOB: [place] Insurance:CIGNAPolicy [id number] Community Number: Hospital [id number] Repository Date:4064-72-32BJ [address]GBJSKROKBYG, [place] [address]BB: 01/11/2018 Tertiary NOT GIVENUNK [place] Insurance:SELF PAY Community [facility] Number: Effective Repository Date:2018-01-11 01/11/2018 SKYLER L [id number] Primary SKYLER L STYPEDOB: [place] [address] Insurance:MEDICARE [id number] [address] PART A BPolicy Number: Hospital [id number]: 330 [id number] Repository [phone] () Date:2018-01-11 01/11/2018 Secondary SKYLER L STYPEDOB: [place] Insurance:CIGNAPolicy [id number] Community Number: Hospital [id number] Repository Date:1689-47-87JG [address]TAFEHHWABJJ, [place] [address]RM: 01/11/2018 Tertiary NOT GIVENUNK [place] Insurance:SELF PAY Community [facility] Number: Effective Repository Date:2018-01-11 12/22/2017 SKYLER L [id number] Primary SKYLER L STYPEDOB: [place] [address] Insurance:MEDICARE [id number] [address] PART A BPolicy Number: Hospital 42663Hho: 330 [id number] Repository [phone] () Date:2017-12-09 12/22/2017 Secondary SKYLER L STYPEDOB: [place] Insurance:CIGNAPolicy [id number] Community Number: Hospital [id number] Repository Date:9469-65-26LQ [address]ADDXOSVZLLMMOUNT [place], [place] [address]NO: 12/22/2017 Tertiary NOT GIVENUNK [place] Insurance:SELF PAY Community [facility] Number: Effective Repository Date:2017-12-14 12/20/2017 SKYLER L [id number] Primary SKYLER L STYPEDOB: [place] [address] Insurance:MEDICARE [id number] Community [address] [place] [address] PART A BPolicy Number: Hospital [id number]: 330 [id number] Repository [phone] () Date:2017-06-04 12/20/2017 Secondary SKYLER L STYPEDOB: [place] Insurance:CIGNAPolicy [id number] Community Number: Hospital [id number] Repository Date:0839-16-42UK [address]AJJGLXLLHPB [place] [address]FU: 12/20/2017 Tertiary NOT GIVENUNK [place] Insurance:SELF PAY Community [facility] Number: Effective Repository Date:2017-12-02 12/11/2017 Skyler L [id number] Primary Skyler L StypeDOB: [place] [address] Insurance:MEDICARE [id number] [address] PART A BPolicy Number: Hospital [id number]: 330 [id number] Repository () Date:2017-12-10 12/11/2017 Secondary Skyler L StypeDOB: [place] Insurance:CIGNAPolicy [id number] Community Number: Hospital [id number] Repository Date:3206-79-04NF [address]JJUETBXCGRD [place] [address]XL: 12/11/2017 Tertiary NOT GIVENUNK [place] Insurance:SELF PAY Community [facility] Number: Effective Repository Date:2017-12-10 12/09/2017 SKYLER L [id number] Primary SKYLER L STYPEDOB: [place] [address] Insurance:MEDICARE [id number] [address] PART A BPolicy Number: Hospital [id number]: 330 [id number] Repository [phone] () Date:2017-11-05 12/09/2017 Secondary SKYLER L STYPEDOB: [place] Insurance:CIGNAPolicy [id number] Community Number: Hospital [id number] Repository Date:7521-63-38EO [address]DHFZFYFAPWQ, [place] [address]CR: 12/09/2017 Tertiary NOT GIVENUNK [place] Insurance:SELF PAY Community [facility] Number: Effective Repository Date:2017-12-02 12/07/2017 SKYLER L [id number] Primary SKYLER L STYPEDOB: [place] [address] Insurance:MEDICARE [id number] [address] PART A BPolicy Number: Hospital [id number]: (829) [id number] Repository [phone] () Date:2017-12-07 12/07/2017 Secondary SKYLER L STYPEDOB: [place] Insurance:CIGNAPolicy [id number] Community Number: Hospital [id number] Repository Date:8031-32-69DA [address]VZYHKPUOSAP, [place] [address]MG: 12/07/2017 Tertiary NOT GIVENUNK [place] Insurance:SELF PAY Community [facility] Number: Effective Repository Date:2017-12-07 12/02/2017 SKYLER L [id number] Primary SKYLER L STYPEDOB: [place] [facility] Insurance:MEDICARE [id number] [address] PART A BPolicy Number: Hospital [id number]: (571) [id number] Repository [phone] () Date:2017-12-02 12/02/2017 Secondary SKYLER L STYPEDOB: [place] Insurance:CIGNAPolicy [id number] Community Number: Hospital [id number] Repository Date:2162-21-50DB [address]ZXQOVNFHZXY, [place] [address]FQ: 12/02/2017 Tertiary NOT GIVENUNK [place] Insurance:SELF PAY Community [facility] Number: Effective Repository Date:2017-12-02 11/23/2017 SKYLER L STYPEDOB: Primary SKYLER L STYPEDOB: University Insurance:MedicarePoli [id number] [place] [address] cy Number: 3 [facility]. Repository [address] # [id number] # [place], [place] Date:Plan Name:Candis Prieto [address] [place] [address]Lup: [phone]: (HP) [phone] (HP) 11/23/2017 Secondary SKYLER L STYPEDOB: [place] Insurance:MedicarePoli [id number] Hospitals cy Number: 3 [facility] Repository [id number] APT. # Date:Plan Name:[address] [address]Hcx: (HP) 11/23/2017 Tertiary SKYLER L STYPEDOB: [place] Insurance:[facility] [id number] Hospitals PlanPolicy Number: 3 [facility] Repository [id number] APT. # Date:8065-13-04Yibs[address] Name:[facility] [address]Tgo: [phone] 253258Hjqdfleesqz, [place] [phone] (HP) [address]VX: 11/23/2017 Tertiary SKYLER L STYPEDOB: [place] Insurance:[facility] [id number] Hospitals HealthcarePolicy [address] [place] [address] Repository Number: APT. # [id number] [address] [place] [address] Date:Plan Name:[place] [address]Tel: () 11/19/2017 SKYLER L [id number] Primary SKYLER L STYPEDOB: [place] [facility] Insurance:MEDICARE [id number] PART A BPolicy Number: Hospital [id number]: (183) [id number] Repository [phone] () Date:2017-06-04 11/19/2017 Secondary SKYLER L STYPEDOB: [place] Insurance:[facility] [id number] Community Number: Hospital [id number] Repository Date:6094-65-68YA [address]EHRBGWFKHEM, [place] [address]RY: 11/19/2017 Tertiary NOT GIVENUNK [place] Insurance:SELF PAY Community [facility] Number: Effective Repository Date:2017-10-29 10/30/2017 SKYLER L [id number] Primary SKYLER L STYPEDOB: [place] [address] Insurance:MEDICARE [id number] [address] PART A BPolicy Number: Hospital [id number]: 330 [id number] Repository [phone] () Date:2017-09-13 10/30/2017 Secondary SKYLER L STYPEDOB: [place] Insurance:CIGNAPolicy [id number] Community Number: Hospital [id number] Repository Date:6534-18-81YM [address] [address]WQ: 10/30/2017 Tertiary NOT GIVENUNK [place] Insurance:SELF PAY Community [facility] Number: Effective Repository Date:2017-09-13 10/21/2017 SKYLER L [id number] Primary SKYLER L STYPEDOB: [place] [address] Insurance:MEDICARE [id number] [address] PART A BPolicy Number: Hospital [id number]: 330 [id number] Repository [phone] () Date:2017-06-04 10/21/2017 Secondary SKYLER L STYPEDOB: [place] Insurance:CIGNAPolicy [id number] Community Number: Hospital [id number] Repository Date:4616-72-63OG [address] [address]NU: 10/21/2017 Tertiary NOT GIVENUNK [place] Insurance:SELF PAY Community [facility] Number: Effective Repository Date:2017-09-30 10/20/2017 SKYLER L [id number] Primary SKYLER L STYPEDOB: [place] [address] Insurance:MEDICARE [id number] [address] PART A BPolicy Number: Hospital 06658Uer: 330 [id number] Repository [phone] () Date:2017-10-20 10/20/2017 Secondary SKYLER L STYPEDOB: [place] Insurance:CIGNAPolicy [id number] Community Number: Hospital [id number] Repository Date:9335-99-19ND [address]NXPIXGSFJXM, [place] [address]FF: 10/20/2017 Tertiary NOT GIVENUNK [place] Insurance:SELF PAY Community [facility] Number: Effective Repository Date:2017-10-20 09/28/2017 SKYLER L [id number] Primary SKYLER L STYPEDOB: [place] [address] Insurance:MEDICARE [id number] [address] PART A BPolicy Number: Hospital [address]116Cln: [id number] Repository [phone] Date:2017-09-28 () 09/28/2017 Secondary SKYLER L STYPEDOB: [place] Insurance:CIGNAPolicy [id number] Community Number: Hospital [id number] Repository Date:5174-25-03HE [address] [address]NG: 09/28/2017 Tertiary NOT GIVENUNK [place] Insurance:SELF PAY Community [facility] Number: Effective Repository Date:2017-09-28 09/23/2017 SKYLER L [id number] Primary SKYLER L STYPEDOB: [place] [address] Insurance:MEDICARE [id number] [address] PART A BPolicy Number: Hospital [id number]: [id number] Repository [phone] Date:2017-09-23 () 09/23/2017 Secondary SKYLER L STYPEDOB: [place] Insurance:CIGNAPolicy [id number] Community Number: Hospital [id number] Repository Date:8000-23-09AF [address]XZKAJZFPZUC, [place] [address]YU: 09/23/2017 Tertiary NOT GIVENUNK [place] Insurance:SELF PAY Community [facility] Number: Effective Repository Date:2017-09-23 09/20/2017 SKYLER L [id number] Primary SKYLER L STYPEDOB: [place] [address] Insurance:MEDICARE [id number] [address] PART A BPolicy Number: Hospital 44164Rkt: [id number] Repository [phone] Date:2017-06-04 () 09/20/2017 Secondary SKYLER L STYPEDOB: [place] Insurance:CIGNAPolicy [id number] Community Number: Hospital [id number] Repository Date:5006-77-58WW [address]XHIVOTKVPOT, [place] [address]AI: 09/20/2017 Tertiary NOT GIVENUNK [place] Insurance:SELF PAY Community [facility] Number: Effective Repository Date:2017-08-31 09/11/2017 SKYLER L [id number] Primary SKYLER L STYPEDOB: [place] [address] Insurance:MEDICARE [id number] [address] PART A BPolicy Number: Hospital 86239Vdn: [id number] Repository [phone] Date:2017-09-10 () 09/11/2017 Secondary SKYLER L STYPEDOB: [place] Insurance:CIGNAPolicy [id number] Community Number: Hospital [id number] Repository Date:0741-06-10RP [address]LKOWCHLQTDU, [place] [address]JX: 09/11/2017 Tertiary NOT GIVENUNK [place] Insurance:SELF PAY Community [facility] Number: Effective Repository Date:2017-09-11 09/11/2017 SKYLER L [id number] Primary SKYLER L STYPEDOB: [place] [address] Insurance:MEDICARE [id number] [address] PART A BPolicy Number: Hospital [address]Cof: (554) [id number] Repository [phone] () Date:2017-09-10 09/11/2017 Secondary SKYLER L STYPEDOB: [place] Insurance:CIGNAPolicy [id number] Community Number: Hospital [id number] Repository Date:0807-11-09BO [address]JFMBSXPCGUY, [place] [address]YR: 09/11/2017 Tertiary NOT GIVENUNK [place] Insurance:SELF PAY Community [facility] Number: Effective Repository Date:2017-09-10 09/11/2017 SKYLER L [id number] Primary SKYLER L STYPEDOB: [place] [address] Insurance:MEDICARE [id number] [address] PART A BPolicy Number: Hospital 11656Hdv: [id number] Repository [phone] Date:2017-09-10 () 09/11/2017 Secondary SKYLER L STYPEDOB: [place] Insurance:CIGNAPolicy [id number] Community Number: Hospital [id number] Repository Date:5472-31-19BQ [address]WQYWLEHBJMP, [place] [address]VZ: 09/11/2017 Tertiary NOT GIVENUNK [place] Insurance:SELF PAY Community [facility] Number: Effective Repository Date:2017-09-11 09/09/2017 Skyler L [id number] Primary Skyler L StypeDOB: [place] [address] Insurance:MEDICARE [id number] [address] PART A BPolicy Number: Hospital [address]Sfy: [id number] Repository [phone] Date:2017-09-09 () 09/09/2017 Secondary Skyler L StypeDOB: [place] Insurance:CIGNAPolicy [id number] Community Number: Hospital [id number] Repository Date:8763-58-26FG [address]ECOLLHPKCQT, [place] [address]KU: 09/09/2017 Tertiary NOT GIVENUNK [place] Insurance:SELF PAY Community [facility] Number: Effective Repository Date:2017-09-09 08/20/2017 Skyler L [id number] Primary [place] StypeDOB: [place] [address] Insurance:MEDICARE [id number] [address] PART A BPolicy Number: Hospital 32163Dmx: [id number] Repository [phone] Date:2017-06-04 () 08/20/2017 Secondary Skyler L StypeDOB: [place] Insurance:CIGNAPolicy [id number] Community Number: Hospital [id number] Repository Date:4484-99-78ES [address]UPRPTKPHOUI, [place] [address]EF: 08/20/2017 Tertiary NOT GIVENUNK [place] Insurance:SELF PAY Community [facility] Number: Effective Repository Date:2017-08-02 08/18/2017 SKYLER L [id number] Primary SKYLER L STYPEDOB: [place] [address] Insurance:MEDICARE [id number] PART A BPolicy Number: Hospital 30691Jbv: (465) [id number] Repository [phone] () Date:2017-08-17 08/18/2017 Secondary SKYLER L STYPEDOB: [place] Insurance:CIGNAPolicy [id number] Community Number: Hospital [id number] Repository Date:2868-84-11XL [address]HDBBCUIXQJG, [place] [address]XH: 08/18/2017 Tertiary NOT GIVENUNK [place] Insurance:SELF PAY Community [facility] Number: Effective Repository Date:2017-08-17 08/18/2017 Skyler L [id number] Primary [place] L StypeDOB: [place] [address] Insurance:MEDICARE [id number] PART A BPolicy Number: Hospital 14442Pzj: [id number] Repository [phone] Date:2017-08-17 () 08/18/2017 Secondary [place]yler L StypeDOB: [place] Insurance:CIGNAPolicy [id number] Community Number: Hospital [id number] Repository Date:5909-94-55ZH [address]ESXPAJLBQEJ, [place] [address]XS: 08/18/2017 Tertiary NOT GIVENUNK [place] Insurance:SELF PAY Community [facility] Number: Effective Repository Date:2017-08-18 08/04/2017 Skyler L [id number] Primary [place] L StypeDOB: [place] [address] Insurance:MEDICARE [id number] [address] PART A BPolicy Number: Hospital [address]Mjm: [id number] Repository [phone] Date:2017-08-04 () 08/04/2017 Secondary [place] L StypeDOB: [place] Insurance:CIGNAPolicy [id number] Community Number: Hospital [id number] Repository Date:4739-77-02NW [address]QQOIPAMVKTT, [place] [address]KZ: 08/04/2017 Tertiary NOT GIVENUNK [place] Insurance:SELF PAY Community [facility] Number: Effective Repository Date:2017-08-04 07/28/2017 Skyler L [id number] Primary [place] L StypeDOB: [place] [address] Insurance:MEDICARE [id number] [address] PART A BPolicy Number: Hospital 33[address]Zzh: [id number] Repository [phone] Date:2017-07-28 () 07/28/2017 Secondary [place] L StypeDOB: [place] Insurance:CIGNAPolicy [id number] Community Number: Hospital [id number] Repository Date:1562-21-54MO [address]IUNGCVJONKL, [place] [address]GS: 07/28/2017 Tertiary NOT GIVENUNK [place] Insurance:SELF PAY Community [facility] Number: Effective Repository Date:2017-07-28 07/22/2017 Skyler L [id number] Primary [place] L StypeDOB: [place] [address] Insurance:MEDICARE [id number] [address] PART A BPolicy Number: Hospital [address]Afp: [id number] Repository [phone] Date:2017-06-04 () 07/22/2017 Secondary Skyler L StypeDOB: [place] Insurance:CIGNAPolicy [id number] Community Number: Hospital [id number] Repository Date:7197-00-46IR [address]VCVAVXHZGCW, [place] [address]MD: 07/22/2017 Tertiary NOT GIVENUNK [place] Insurance:SELF PAY Community [facility] Number: Effective Repository Date:2017-07-02 07/21/2017 Skyler L [id number] Primary [place]yler L StypeDOB: [place] [address] Insurance:MEDICARE [id number] [address] PART A BPolicy Number: Hospital 20[address]Osn: [id number] Repository [phone] Date:2017-07-20 () 07/21/2017 Secondary Skyler L StypeDOB: [place] Insurance:CIGNAPolicy [id number] Community Number: Hospital [id number] Repository Date:8978-47-10AA [address]BXYVVSDADGE, [place] [address]YS: 07/21/2017 Tertiary NOT GIVENUNK [place] Insurance:SELF PAY Community [facility] Number: Effective Repository Date:2017-07-20 07/21/2017 Skyler L [id number] Primary [place] L StypeDOB: [place] [address] Insurance:MEDICARE [id number] [address] PART A BPolicy Number: [facility] 738[address]Zyj: [id number] Repository [phone] Date:2017-07-20 () 07/21/2017 Secondary Skyler L StypeDOB: [place] Insurance:CIGNAPolicy [id number] Community Number: Hospital [id number] Repository Date:9545-21-02GT [address]EQMIVOMVXBW, [place] [address]BF: 07/21/2017 Tertiary NOT GIVENUNK [place] Insurance:SELF PAY Community [facility] Number: Effective Repository Date:2017-07-21 07/13/2017 SKYLER L [id number] Primary SKYLER L STYPEDOB: [place] [address] Insurance:MEDICARE [id number] [address] PART A BPolicy Number: Hospital [address]Lae: (063) [id number] Repository [phone] () Date:2017-07-13 07/13/2017 Secondary SKYLER L STYPEDOB: [place] Insurance:CIGNAPolicy [id number] Community Number: Hospital [id number] Repository Date:2060-57-22IV [address]NSHDJOUPQJQ, [place] [address]LT: 07/13/2017 Tertiary NOT GIVENUNK [place] Insurance:SELF PAY Community [facility] Number: Effective Repository Date:2017-07-13 07/13/2017 Skyler L [id number] Primary [place] StypeDOB: [place] [address] Insurance:MEDICARE [id number] [address] PART A BPolicy Number: Hospital [id number]: [id number] Repository [phone] Date:2017-07-13 () 07/13/2017 Secondary Skyler L StypeDOB: [place] Insurance:CIGNAPolicy [id number] Community Number: Hospital [id number] Repository Date:8803-84-57AB [id number], [place] [address]LP: 07/13/2017 Tertiary NOT GIVENUNK [place] Insurance:SELF PAY Community [facility] Number: Effective Repository Date:2017-07-13 07/13/2017 Skyler L [id number] Primary Skyler L StypeDOB: [place] [address] Insurance:MEDICARE [id number] [address] PART A BPolicy Number: Hospital [id number]: [id number] Repository [phone] Date:2017-07-13 () 07/13/2017 Secondary Skyler L StypeDOB: [place] Insurance:CIGNAPolicy [id number] Community Number: Hospital [id number] Repository Date:1811-56-10[id number], [place] [address]NC: 07/13/2017 Tertiary NOT GIVENUNK [place] Insurance:SELF PAY Community [facility] Number: Effective Repository Date:2017-07-13 07/13/2017 Skyler L [id number] Primary Skyler L StypeDOB: [place] [address] Insurance:MEDICARE [id number] [address] PART A BPolicy Number: Hospital [id number]: [id number] Repository [phone] Date:2017-07-13 () 07/13/2017 Secondary Skyler L StypeDOB: [place] Insurance:CIGNAPolicy [id number] Community Number: Hospital [id number] Repository Date:9732-64-70RI [address]HCLUPRD[address]X [place] [address]BI: 07/13/2017 Tertiary NOT GIVENUNK [place] Insurance:SELF PAY Community [facility]: Effective Repository Date:2017-07-13 07/13/2017 Skyler L [id number] Primary Skyler L StypeDOB: [place] [address] Insurance:MEDICARE [id number] [address] PART A BPolicy Number: Hospital [id number]: [id number] Repository [phone] Date:2017-07-13 () 07/13/2017 Secondary Skyler L StypeDOB: [place] Insurance:CIGNAPolicy [id number] Community Number: Hospital [id number] Repository Date:6328-11-46YZ [address] [place] [address]WC: 07/13/2017 Tertiary NOT GIVENUNK [place] Insurance:SELF PAY [facility]: Effective Repository Date:2017-07-13 07/13/2017 Skyler L [id number] Primary Skyler L StypeDOB: [place] [address] Insurance:MEDICARE [id number] [address] PART A BPolicy Number: Hospital [id number]: [id number] Repository [phone] Date:2017-07-13 () 07/13/2017 Secondary Skyler L StypeDOB: [place] Insurance:CIGNAPolicy [id number] Community Number: Hospital [id number] Repository Date:9359-18-75DW [address] [address]JR: 07/13/2017 Tertiary NOT GIVENUNK [place] Insurance:SELF PAY Community [facility] Number: Effective Repository Date:2017-07-13 07/13/2017 Skyler L [id number] Primary Skyler L StypeDOB: [place] [address] Insurance:MEDICARE [id number] [address] PART A BPolicy Number: Hospital [id number]: [id number] Repository [phone] Date:2017-07-13 (HP) 07/13/2017 Secondary Skyler L StypeDOB: [place] Insurance:CIGNAPolicy [id number] Community Number: [facility] [id number] Repository Date:0531-83-81[address], [place] [address]DN: 07/13/2017 Tertiary NOT GIVENUNK [place] Insurance:SELF PAY Community [facility] Number: Effective Repository Date:2017-07-13 07/12/2017 Skyler L [id number] Primary Skyler L StypeDOB: [place] [facility] Insurance:MEDICARE [id number] [facility]ly [facility] [address] PART A BPolicy Number: [facility] [address]Ajg: [id number] Repository [phone] Date:2017-06-29 () 07/12/2017 Secondary Skyler L StypeDOB: [place] Insurance:CIGNAPolicy [id number] Community Number: [facility] [id number] Repository Date:5052-02-66HQ [address]TVLWQNBZJXS, [place] [address]WO: 07/12/2017 Tertiary NOT GIVENUNK [place] Insurance:SELF PAY [facility] Number: Effective Repository Date:2017-06-29 07/06/2017 SKYLER L STYPEDOB: Primary SKYLER L STYPEDOB: [place] Insurance:MedicarePol [id number] [place] [address] cy Number: 3 [facility] Repository [id number], [place] Date:Plan Name:Candis Prieto [address], [place] [address]Jmb: [phone]: (HP) [phone] (HP) 07/06/2017 Secondary SKYLER L STYPEDOB: [place] Insurance:MedicarePoli [id number] [facility] cy Number: 3 [facility] Repository [id number] Date:Plan Name:Candis De La Garza [address], [place] [address]Bdq: () 07/06/2017 Tertiary SKYLER L STYPEDOB: University Insurance:[employer] [id number] Hospitals PlanPolicy Number: 3 [facility]. Repository [id number] [address] # Date:7826-42-67Dhrr[address] Name:[facility] [address] [address]Xuk: [phone], [place] [phone] () [address]OW: 06/18/2017 Skyler L [id number] Primary Skyler L StypeDOB: [place] [facility] Insurance:MEDICARE [id number] PART A BPolicy Number: Hospital [id number]: [id number] Repository [phone] Date:2017-06-04 () 06/18/2017 Secondary Skyler L StypeDOB: [place] Insurance:Pure NetworksNAClew [id number] Community Number: Hospital [id number] Repository Date:9168-20-15FX [facility] [address]PPCKG[place]U, [place] [address]ZM: 06/18/2017 Tertiary NOT GIVENUNK [place] Insurance:SELF PAY [facility] Number: Effective Repository Date:2017-06-04 05/28/2017 Skyler L [id number] Primary Skyler L StypeDOB: [place] [facility] Insurance:MEDICARE [id number] [address] PART A BPolicy Number: Hospital [id number]: [id number] Repository [phone] Date:2014-04-02 () 05/28/2017 Secondary Skyler L StypeDOB: [place] Insurance:Pure NetworksNAPolicy [id number] Community Number: Hospital [id number] Repository Date:1818-35-87[address]GCIW[address], [place] [address]FW: 05/28/2017 Tertiary NOT GIVENUNK [place] Insurance:SELF PAY Community [facility] Number: Effective Repository Date:2017-05-03
== END ==
LOC: OLS.AVED 05:00
PROVIDERS: Visit Provider Family Medicine
DX: I82.409 Acute embolism and thrombosis of unspecified deep veins of unspecified lower extremity (principal)
CPT/HCPCS: 36415; 80048; 85027

== ENCOUNTER → 2018-04-06 05:00 | Outpatient (REF) | payer MEDICARE, OTHER, SELFPAY ==
[2018-04-06 08:38] LABS: Hematocrit 37.4 % (40-54); Hemoglobin 11.9 g/dl (13.0-16.5); Mean Corp Hgb Conc 31.8 g/gl (32-36); Mean Corpuscular Hgb 25.7 pg (27.0-32.0); Mean Corpuscular Volume 80.8 fL (80-94); Mean Platelet Vol. 11.3 fl (6.2-12.0); Platelet Count 196 K/mm3 (150-450); RBC Distribution Width CV 15.9 % (11.6-14.6); RBC Distribution Width SD 46.3 fl (35.1-43.9); Red Blood Count 4.63 M/mm3 (4.6-6.2); White Blood Count 3.9 K/mm3 (4.4-11.0)
[2018-04-06 08:39] LABS: Scan Indicated on CBC? Y/N NO
[2018-04-06 08:52] LABS: Anion Gap 7 (5-15); BUN 14 mg/dL (7-18); Calcium,Total 7.6 mg/dL (8.5-10.1); Chloride 109 mmol/L (98-107); Creatinine, Serum 1.56 mg/dL (0.70-1.30); EST Glomerular Filtration Rate 50 mL/min (>60); Est Glom Filt Rate - Afr Amer 61 mL/min (>60); Glucose 81 mg/dL (74-106); Sodium Level 142 mmol/L (136-145)
== END ==
LOC: OLS.AVED 05:00
PROVIDERS: Visit Provider Family Medicine
DX: Z94.0 Kidney transplant status (principal)
CPT/HCPCS: 36415; 80048; 85027

== ENCOUNTER 2018-04-11 08:17 | Outpatient (RCR) | payer MEDICARE, OTHER, SELFPAY | END 2018-04-11 09:00 | disposition home or self-care (01) | LOC: LAB 08:17 | PROVIDERS: Family Provider Family Medicine; PCP Family Medicine | DX: D89.9 Disorder involving the immune mechanism, unspecified (principal); Z94.0 Kidney transplant status ==

== ENCOUNTER → 2018-04-13 08:05 | Outpatient (REF) | payer MEDICARE, OTHER, SELFPAY ==
[2018-04-13 09:02] LABS: Hematocrit 38.8 % (40-54); Hemoglobin 12.4 g/dl (13.0-16.5); Mean Corpuscular Hgb 25.5 pg (27.0-32.0); Mean Corpuscular Volume 79.7 fL (80-94); Mean Platelet Vol. 10.9 fl (6.2-12.0); Platelet Count 181 K/mm3 (150-450); RBC Distribution Width CV 15.7 % (11.6-14.6); RBC Distribution Width SD 45.1 fl (35.1-43.9); Red Blood Count 4.87 M/mm3 (4.6-6.2); White Blood Count 3.8 K/mm3 (4.4-11.0)
[2018-04-13 09:06] LABS: Scan Indicated on CBC? Y/N NO
[2018-04-13 09:28] LABS: Albumin, Serum 3.4 g/dL (3.2-5.0); Anion Gap 9 (5-15); BUN 17 mg/dL (7-18); BUN/Creat Ratio 11.4 RATIO (10-20); Chloride 110 mmol/L (98-107); Creatinine, Serum 1.49 mg/dL (0.70-1.30); EST Glomerular Filtration Rate 53 mL/min (>60); Est Glom Filt Rate - Afr Amer 64 mL/min (>60); Glucose 81 mg/dL (74-106); Potassium 3.9 mmol/L (3.5-5.1); Sodium Level 144 mmol/L (136-145)
[2018-04-18 11:39] LABS: Tacrolimus (FK506) 5.2 ng/mL (2.0-20.0)
--- OUTSIDE RECORDS SUMMARY | 2018-05-30 03:51 | XMS RPT_ITS ---
:1965 Author Organization OHIP Support Name Relationship Address Phone COW Unavailable [address] + [place] [address] Patsolic, Suzanna Unavailable [address] + [place] [address] Stypjolie Cierra Unavailable [address] + [place] [address] COW Unavailable [address] + [place] [address] Patsolic, Suzanna Unavailable [address] + [place] [address] Stype Cierra Unavailable [address] + [place] [address] COW Unavailable [address] + [place] [address] Patsolic, Suzanna Unavailable [address] + [place] [address] Stype, Cierra Unavailable [address] + [place] [address] COW Unavailable [address] + [place] [address] Patsolic, Suzanna Unavailable [address] + [place] [address] Stype, Cierra Unavailable [address] + [place] [address] COW Unavailable [address] + [place] [address] Patsolic, Suzanna Unavailable [address] + [place] [address] Stypjolie Cierra Unavailable [address] + [place] [address] COW Unavailable [address] + [place] [address] Patsolic, Suzanna Unavailable [address] + [place] [address] Stype, Cierra Unavailable [address] + [place] [address] PATSOLICCOLIN Unavailable Unavailable + STYPEYOLI Unavailable Unavailable + COW Unavailable [address] + [place] [address] Patsolic, Suzanna Unavailable [address] + [place] [address] Stype, Cierra Unavailable [address] + [place] [address] COW Unavailable [address] + [place] [address] Patsolic, Suzanna Unavailable [address] + [place] [address] Stype, Cierra Unavailable [address] + [place] [address] COW Unavailable [address] + [place] [address] Patsolic, Suzanna Unavailable [address] + [place] [address] Stype, Cierra Unavailable [address] + [place] [address] COW Unavailable [address] + [place] [address] Patsolic, Suzanna Unavailable [address] + [place] [address] Stype, Cierra Unavailable [address] + [place] [address] COW Unavailable [address] + [place] [address] Patsolic, Suzanna Unavailable [address] + [place] [address] Stype, Cierra Unavailable [address] + [place] [address] COW Unavailable [address] + [place] [address] Patsolic, Suzanna Unavailable [address] + [place] [address] Stype, Cierra Unavailable [address] + [place] [address] PATSOLICMARINACOLIN Unavailable Unavailable + STYPEYOLI Unavailable Unavailable + COW Unavailable [address] + [place] [address] Patsolic, Suzanna Unavailable [address] + [place] [address] Stype, Cierra Unavailable [address] + [place] [address] COW Unavailable [address] + [place] [address] Patsolic, Suzanna Unavailable [address] + [place] [address] Stype, Cierra Unavailable [address] + [place] [address] COW Unavailable [address] + [place] [address] Patsolic, Suzanna Unavailable [address] + [place] [address] Stype, Cierra Unavailable [address] + [place] [address] COW Unavailable [address] + [place] [address] Patsolic, Suzanna Unavailable [address] + [place] [address] Stype, Cierra Unavailable [address] + [place] [address] COW Unavailable [address] + [place] [address] Patsolic, Suzanna Unavailable [address] + [place] [address] Stype, Cierra Unavailable [address] + [place] [address] + [place] [address] Patsolic, Suzanna Unavailable [address] + [place] [address] Stype, Cierra Unavailable [address] + [place] [address] + [place] [address] Patsolic, Suzanna Unavailable [address] + [place] [address] Stype, Cierra Unavailable [address] + [place] [address] + [place] [address] PATSOSUZANNA TAPIA (MEDICAL POA) Unavailable [address] + [place] [address] STYPE, CIERRA Unavailable [address] + [place] [address] + [place] [address] PATSOSUZANNA TAPIA (MEDICAL POA) Unavailable [address] + [place] [address] STYPE, CIERRA Unavailable [address] + [place] [address] + [place] [address] PATSOSUZANNA TAPIA (MEDICAL POA) Unavailable [address] + [place] [address] STYPE, CIERRA Unavailable [address] + [place] [address] + [place] [address] PATSOLICSUZANNA (MEDICAL POA) Unavailable [address] + [place] [address] STYPE, CIERRA Unavailable [address] + [place] [address] + [place] [address] PATSOLICSUZANNA (MEDICAL POA) Unavailable [address] + [place] [address] STYPE, CIERRA Unavailable [address] + [place] [address] + [place] [address] PATSUZANNA LEE (MEDICAL POA) Unavailable [address] + [place] [address] STYPE, CIERRA Unavailable [address] + [place] [address] + [place] [address] PATSUZANNA LEE (MEDICAL POA) Unavailable [address] + [place] [address] STYPE, CIERRA Unavailable [address] + [place] [address] + [place] [address] PATSUZANNA LEE (MEDICAL POA) Unavailable [address] + [place] [address] STYPE, CIERRA Unavailable [address] + [place] [address] + [place] [address] Patsolic Suzanna Unavailable [address] + [place] [address] Stype, Cierra Unavailable [address] + [place] [address] + [place] [address] PATSOSUZANNA TAPIA (MEDICAL POA) Unavailable [address] + [place] [address] STYPE, CIERRA Unavailable [address] + [place] [address] COW Unavailable [address] + [place] [address] Patsolic, Suzanna Unavailable [address] + [place] [address] Stype, Cierra Unavailable [address] + [place] [address] + [place] [address] PATSOSUZANNA TAPIA (MEDICAL POA) Unavailable [address] + [place] [address] STYPE CIERRA Unavailable [address] + [place] [address] + [place] [address] PATSOSUZANNA TAPIA (MEDICAL POA) Unavailable [address] + [place] [address] STYPE, CIERRA Unavailable [address] + [place] [address] + [place] [address] PATSOSUZANNA TAPIA (MEDICAL POA) Unavailable [address] + [place] [address] STYPE, CIERRA Unavailable [address] + [place] [address] PATSOMARINA TAPIACOLIN Unavailable Unavailable + STYPEMARIANOYOLI Unavailable Unavailable + COW Unavailable [address] + [place] [address] PATSOSUZANNA TAPIA (MEDICAL POA) Unavailable [address] + [place] [address] STYPE CIERRA Unavailable [address] + [place] [address] + [place] [address] PATSOLICSUZANNA (MEDICAL POA) Unavailable [address] + [place] [address] STYPE, CIERRA Unavailable [address] + [place] [address] + [place] [address] PATSOLICSUZANNA (MEDICAL POA) Unavailable [address] + [place] [address] STYPE, CIERRA Unavailable [address] + [place] [address] + [place] [address] PATSOLICSUZANNA (MEDICAL POA) Unavailable [address] + [place] [address] STYPE, CIERRA Unavailable [address] + [place] [address] + [place] [address] PATSOLICSUZANNA (MEDICAL POA) Unavailable [address] + [place] [address] STYPE, CIERRA Unavailable [address] [phone] [place] [address] + [place] [address] PATSOLICSUZANNA (MEDICAL POA) Unavailable [address] + [place] [address] STYPE, CIERRA Unavailable [address] [phone] [place] [address] + [place] [address] PATSOLICSUZANNA (MEDICAL POA) Unavailable [address] + [place] [address] STYPE, CIERRA Unavailable [address] [phone] [place] [address] + [place] [address] PATSOLICSUZANNA (MEDICAL POA) Unavailable [address] + [place] [address] STYPE, CIERRA Unavailable [address] [phone] [place] [address] + [place] [address] PATSOLICSUZANNA (MEDICAL POA) Unavailable [address] + [place] [address] STYPE, CIERRA Unavailable [address] + [place] [address] + [place] [address] SUZANNA RUVALCABA (MEDICAL POA) Unavailable [address] + [place] [address] STYPE, CIERRA Unavailable [address] [phone] [place] [address] + [place] [address] STYPE, CIERRA Unavailable [address] [phone] [place] [address] + [place] [address] STYPE, CIERRA Unavailable [address] [phone] [place] [address] + [place] [address] SUZANNA RUVALCABA (MEDICAL POA) Unavailable [address] + [place] [address] STYPE, CIERRA Unavailable [address] + [place] [address] + [place] [address] STYPE, CIERRA Unavailable [address] [phone] [place] [address] + [place] [address] STYPE, CIERRA Unavailable [address] [phone] [place] [address] + [place] [address] STYPE, CIERRA Unavailable [address] [phone] [place] [address] + [place] [address] STYPE, CIERRA Unavailable [address] [phone] [place] [address] + [place] [address] STYPE, CIERRA Unavailable [address] [phone] [place] [address] + [place] [address] STYPE, CIERRA Unavailable [address] [phone] [place] [address] + [place] [address] SUZANNA RUVALCABA (MEDICAL POA) Unavailable [address] + [place] [address] STYPE, CIERRA Unavailable [address] + [place] [address] + [place] [address] STYPE, CIERRA Unavailable [address] [phone] [place] [address] + [place] [address] STYPE, CIERRA Unavailable [address] [phone] [place] [address] + [place] [address] STYPE, CIERRA Unavailable [address] [phone] [place] [address] + [place] [address] STYPE, CIERRA Unavailable [address] [phone] [place] [address] + [place] [address] STYPE, CIERRA Unavailable [address] [phone] [place] [address] + [place] [address] STYPE, CIERRA Unavailable [address] [phone] [place] [address] + [place] [address] CEIRRA PINZON Unavailable [address] [phone] [place] [address] COLIN RUVALCABA Unavailable Unavailable + YOLI PINZON Unavailable Unavailable + COW Unavailable [address] + [place] [address] CIERRA PINZON Unavailable [address] [phone] [place] [address] + [place] [address] STCIERRA VERDUGO Unavailable [address] [phone] [place] [address] Care Team Providers Name Role Phone Mike Bella Attending Unavailable eJna, Mike Attending Unavailable Jena, Mike Attending Unavailable JUSTIN WREN Attending Unavailable JUSTIN WREN Referring Unavailable Jena, Mike Primary Care Unavailable Nakul Crenshaw Consulting Unavailable Mike Bella Attending Unavailable Mike Bella Attending Unavailable Jena, Mike Attending Unavailable Bella, Mike Primary Care Unavailable JUSTIN WREN Attending Unavailable Nakul Crenshaw Referring Unavailable Bella, Mike Primary Care Unavailable JUSTIN WREN Attending Unavailable JUSTIN WREN Referring Unavailable JUSTIN WREN Attending Unavailable JUSTIN WREN Referring Unavailable Bella, Mike Primary Care Unavailable Litzy Kern Attending Unavailable Bella, Mike Primary Care Unavailable Bella, Mike Primary Care Unavailable White, Jesica Admitting Unavailable Danielle Cheng Consulting Unavailable Sementi, Keli Attending Unavailable Bradlys, Vladimiriz Consulting Unavailable White, Jesica Admitting Unavailable White, Jesica Attending Unavailable Bella, Mike Primary Care Unavailable White, Jesica Consulting Unavailable White, Jesica Admitting Unavailable Sementi, Keli Attending Unavailable Bella, Mike Primary Care Unavailable Danielle, Cheng Consulting Unavailable Damion, Jayaprakash Consulting Unavailable Sementi, Keli Consulting Unavailable White, Jseica Admitting Unavailable Sementi, Keli Attending Unavailable Bella, Mike Primary Care Unavailable Danielle, Cheng Consulting Unavailable Damion, Jayaprakash Consulting Unavailable Sementi, Keli Consulting Unavailable White, Jesica Admitting Unavailable Bella, Mike Primary Care Unavailable Danielle, Cheng Consulting Unavailable JASS Arauz Attending Unavailable Damion, Jayaprakash Consulting Unavailable Sementi, Keli Consulting Unavailable White, Jesica Admitting Unavailable Sementi, Keli Attending Unavailable Bella, Mike Primary Care Unavailable Danielle, Cheng Consulting Unavailable Damion, Jayaprakash Consulting Unavailable Sementi, Keli Consulting Unavailable Bella, Mike Primary Care Unavailable Jopperi, Ambrosio Admitting Unavailable Beantsil, [place] Attending Unavailable Jopperi, Ambrosio Admitting Unavailable Jopperi, Ambrosio Attending Unavailable Bella, Mike Primary Care Unavailable Jopperi, Ambrosio Consulting Unavailable Sementi, Keli Attending Unavailable White, Jesica Admitting Unavailable Bella, Mike Primary Care Unavailable Danielle, Chegn Consulting Unavailable Bakhous, Aziz Consulting Unavailable Sementi, Keli Consulting Unavailable Bella, Mike Primary Care Unavailable Jose Armando Mosqueda Attending Unavailable JUSTIN WREN Attending Unavailable JUSTIN WREN Referring Unavailable Bella, Mike Primary Care Unavailable JeannieNakulRafael Consulting Unavailable Bella, Mike Attending Unavailable Bella, Mike Primary Care Unavailable Bella, Mike Primary Care Unavailable Tereletsky, Luis Armando Admitting Unavailable Jopperi, Ambrosio Attending Unavailable Tereletsky, Luis Armando Admitting Unavailable Tereletsky, Luis Armando Attending Unavailable Bella, Mike Primary Care Unavailable Tereletsky, Luis Armando Consulting Unavailable JUSTIN WREN Attending Unavailable JUSTIN WREN Referring Unavailable Bella, Mike Primary Care Unavailable Jeannie, Rafael Consulting Unavailable Schinner, Ha E Attending Unavailable Schinner, Ha E Referring Unavailable Bella, Mike Primary Care Unavailable Bella, Mike Primary Care Unavailable White, Jesica Admitting Unavailable Ashelfah, Ghasem Attending Unavailable Fredi Padilla D.O. Consulting Unavailable White, Jesica Attending Unavailable Bella, Mike Primary Care Unavailable White, Jesica Admitting Unavailable Fredi Brown D.O. Attending Unavailable Bella, Mike Primary Care Unavailable Fredi Brown D.O. Consulting Unavailable Ashelfah, Ghasem Consulting Unavailable Schinner, Ha E Attending Unavailable Schinner, Ha E Referring Unavailable Bella, Mike Primary Care Unavailable [...] Care Unavailable Ambrosio Munguia Attending Unavailable Fredi Padilla, D.OSaad Attending Unavailable Bella, Mike Referring Unavailable Fredi Padilla, D.OSaad Attending Unavailable Fredi Brown, D.O. Referring Unavailable Bella, Mike Primary Care Unavailable [...] Primary Care Unavailable Wyneski, Lauren Consulting Unavailable White, Jesica Consulting Unavailable Gentry, Mikey Chi Admitting Unavailable Bella, Mike Primary Care Unavailable Jeannie, Rafael Consulting Unavailable Rayo [place]a Attending Unavailable Cheng Santos Consulting Unavailable Mike Bella Attending Unavailable Bella, Mike Attending Unavailable Bella, Mike Attending Unavailable Bella, Mike Attending Unavailable Bella, Mike Primary Care Unavailable Vania Sullivan Attending Unavailable Bella, Mike Attending Unavailable Bella, Mike Attending Unavailable Bella, Mike Attending Unavailable Bella, Mike Attending Unavailable Bella, Mike Attending Unavailable Bella, Mike Attending Unavailable Padiyajovani, Dr. Ruiz Admitting Unavailable Rachelifloyd, Dr. Ruiz Attending Unavailable Padiyajovani, Dr. Ruiz Referring Unavailable FREE, TEXT ENTRY Primary Care Unavailable Huml, Dr. Valery Nolan Admitting Unavailable Huml, Dr. Valery Nolan Attending Unavailable Padiyajovani, Dr. Ruiz Referring Unavailable FREE, TEXT ENTRY Primary Care Unavailable Padiyajovani, Dr. Ruiz Attending Unavailable Huml, Dr. Valery Nolan Referring Unavailable FREE, TEXT ENTRY Primary Care Unavailable Padiyajovani, Dr. Ruiz Attending Unavailable FREE, TEXT ENTRY Primary Care Unavailable PROBLEMS PROBLEMS DATE TYPE CONDITION / CODE ATTENDING STATUS SOURCE 05/20/2018 Unknown N18.9 - Chronic Mike Bella Active [place] kidney disease, Community unspecified / Hospital N18.9(ICD-10) Repository 05/13/2018 Unknown R53.83 - Other Mike Bella Active [place] fatigue / Community R53.83(ICD-10) Hospital Repository 05/13/2018 Unknown Z48.22 - Encounter Mike Bella Active [place] for aftercare Community following kidney Hospital transplant / Repository Z48.22(ICD-10) 04/14/2018 Final diagnosis Kidney transplant Dr. Trina Rao (discharge) status / [facility] Z94.0(ICD-10) Repository 04/14/2018 Final diagnosis Disorder involving Dr. Trina Rao (discharge) the immune [facility] mechanism, Repository unspecified / D89.9(ICD-10) 05/02/2018 Unknown D89.9 - Disorder JUSTIN WREN involving the Community immune mechanism, Hospital unspecified / Repository D89.9(ICD-10) 05/18/2018 Unknown I82.409 - Acute BellaMike franco Active [place] embolism and Community thrombosis of Hospital unspecified deep Repository veins of unspecified lower extremity / I82.409(ICD-10) 05/18/2018 Unknown Z94.0 - Kidney BellaMike franco Active [place] transplant status Community / Z94.0(ICD-10) Hospital Repository 03/15/2018 Final diagnosis Constipation, Dr. 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 Community R06.02(ICD-10) Hospital Repository 12/15/2017 Unknown I26.99 - Other Fredi Padilla, Active [place] pulmonary embolism [facility] Community without acute cor Hospital pulmonale / Repository I26.99(ICD-10) 11/23/2017 Final diagnosis Essential Huml, Dr. Rasmussen [facility] (discharge) (primary) [facility] hypertension / Repository I10(ICD-10) 11/18/2017 Unknown J18.9 - Pneumonia, Ha Lyle Active [place] unspecified E Community organism / Hospital J18.9(ICD-10) Repository 10/29/2017 Unknown R31.9 - Hematuria, JUSTIN WREN Active [place] unspecified / Community R31.9(ICD-10) Hospital Repository 10/20/2017 Unknown R05 - Cough / Mike Bella Active [place] R05(ICD-10) Community Hospital Repository 11/08/2017 Unknown J40 - Bronchitis, Ashelfah, Active [place] not specified as Ghasem Community acute or chronic / Hospital J40(ICD-10) Repository 10/20/2017 Unknown R07.9 - Chest Jopperi, Ambrosio Active [place] pain, unspecified Community / R07.9(ICD-10) Hospital Repository 01/18/2018 Unknown Z51.89 - Encounter Mike Bella Active [place] for other Community specified Hospital aftercare / Repository Z51.89(ICD-10) 10/25/2017 Unknown N39.0 - Urinary Sementi, Active [place] tract infection, [facility] site not specified Hospital / N39.0(ICD-10) Repository 07/06/2017 Final diagnosis Urinary tract Dr. Jeanne [facility] ([facility], site [facility] Hospitals not specified / Repository N39.0(ICD-10) PROCEDURES PROCEDURES No Procedure Records FoundRESULTS RESULTS CBC-COMPLETE BLOOD CNT Collected: 05/18/2018 Status: F Source: [place] NO DIFF 6:20 AM [facility] REPOSITORY TYPE CODE TESTS RESULT OUT OF RANGE REFERENCE UNITS LAB L100.1000 4.4-11.0 K/mm3 Low WBC 4.2 LAB L100.1200 4.6-6.2 M/mm3 Normal RBC 5.39 LAB L100.1300 13.0-16.5 g/dl Normal HGB 13.4 LAB L100.1400 40-54 % Normal HCT 44.2 LAB L100.1500 80-94 fL Normal MCV 82.0 LAB L100.1600 27.0-32.0 pg Low MCH 24.9 LAB L100.1700 32-36 g/gl Low MCHC 30.3 LAB L100.1810 11.6-14.6 % High RDW CV 15.9 LAB L100.1820 35.1-43.9 fl High RDW SD 47.1 LAB L100.1900 150-450 K/mm3 Normal PLT 204 LAB L100.2000 6.2-12.0 fl Normal MPV 11.4 Performed By: #### L100.0500 #### [facility] [place], [address] COMPREHENSIVE METABOLIC Collected: 05/18/2018 Status: F Source: [place] PROFIL 6:20 AM [facility] REPOSITORY TYPE CODE TESTS RESULT OUT OF RANGE REFERENCE UNITS LAB L501.0100 74-106 mg/dL Normal GLU 82 Result Comment: Please note revised GLUCOSE reference range effective 2017. LAB L501.1000 7-18 mg/dL Normal BUN 18 LAB L501.1100 0.70-1.30 mg/dL High CREAT,SERUM 1.47 Result Comment: The validity of the calculated GFR AND GFRAA in patients over 70 years has not been determined. Clinical correlation is essential. LAB L501.1110 >60 mL/min Low EST GFR 54 Result Comment: Non- GFR Calc LAB L501.1115 >60 mL/min Normal EST GFR - AA 65 Result Comment: GFR Calc LAB L501.1300 10-20 RATIO Normal BUN/CRE 12.2 LAB L501.1500 6.4-8.2 g/dL T Normal PROT 6.7 LAB L501.1800 3.2-5.0 g/dL Normal ALB 3.8 LAB L501.1950 2.2-4.2 g/dL Normal GLOB 2.9 LAB L501.2000 0.9-2.4 RATIO Normal A/G 1.3 LAB L501.2200 8.5-10.1 mg/dL CA Normal 8.5 LAB L501.4100 15-37 U/L Normal AST 24 LAB L501.4305 45-117 U/L Normal ALK P 50 LAB L501.4405 16-61 U/L Normal ALT 26 LAB L501.4600 0.20-1.00 mg/dL High T BILI 1.10 LAB L501.5300 136-145 mmol/L NA Normal 142 LAB L501.5600 3.5-5.1 mmol/L K Normal 4.3 LAB L501.5900 98-107 mmol/L High CL 110 LAB L501.6100 21.0-32.0 mmol/L Normal CO2 25.0 LAB L501.6200 5-15 Normal GAP 7 Performed By: #### L500.4050 #### [facility] Bettylourdes Hernandez. [place], [place], [address] CBC-COMPLETE BLOOD CNT Collected: 05/11/2018 Status: F Source: [place] NO DIFF 5:45 AM [facility] REPOSITORY TYPE CODE TESTS RESULT OUT OF RANGE REFERENCE UNITS LAB L100.1000 4.4-11.0 K/mm3 Low WBC 3.7 LAB L100.1200 4.6-6.2 M/mm3 Normal RBC 5.06 LAB L100.1300 13.0-16.5 g/dl Low HGB 12.7 LAB L100.1400 40-54 % Normal HCT 40.1 LAB L100.1500 80-94 fL Low MCV 79.2 LAB L100.1600 27.0-32.0 pg Low MCH 25.1 LAB L100.1700 32-36 g/gl Low MCHC 31.7 LAB L100.1810 11.6-14.6 % High RDW CV 15.6 LAB L100.1820 35.1-43.9 fl High RDW SD 44.7 LAB L100.1900 150-450 K/mm3 Normal PLT 174 LAB L100.2000 6.2-12.0 fl Normal MPV 10.5 Performed By: #### L100.0500 #### [facility] [address] [facility] [place], [address] RENAL PROFILE Collected: 05/11/2018 Status: F Source: [place] 5:45 AM [facility] REPOSITORY Order Comment: 127 TYPE CODE TESTS RESULT OUT OF RANGE REFERENCE UNITS LAB L501.0100 74-106 mg/dL Normal GLU 85 Result Comment: Please note revised GLUCOSE reference range effective 2017. LAB L501.1000 7-18 mg/dL Normal BUN 18 LAB L501.1100 0.70-1.30 mg/dL High CREAT,SERUM 1.43 Result Comment: The validity of the calculated GFR AND GFRAA in patients over 70 years has not been determined. Clinical correlation is essential. LAB L501.1110 >60 mL/min Low EST GFR 55 Result Comment: Non- GFR Calc LAB L501.1115 >60 mL/min Normal EST GFR - AA 67 Result Comment: GFR Calc LAB L501.1300 10-20 RATIO Normal BUN/CRE 12.6 LAB L501.1800 3.2-5.0 g/dL Normal ALB 3.5 LAB L501.2200 8.5-10.1 mg/dL Low CA 7.6 LAB L501.2300 2.5-4.9 mg/dL Normal PHOS 3.2 LAB L501.5300 136-145 mmol/L NA Normal 143 LAB L501.5600 3.5-5.1 mmol/L K Normal 4.0 LAB L501.5900 98-107 mmol/L High CL 111 LAB L501.6100 21.0-32.0 mmol/L Normal CO2 22.0 Performed By: #### L500.3600 #### [facility] [address] [place], [place], [address] TACROLIMUS (PROGRAF) Collected: 05/11/2018 Status: F Source: MELVIN 5:45 AM [facility] REPOSITORY TYPE CODE TESTS RESULT OUT OF RANGE REFERENCE UNITS LAB L3380.1100 2.0-20.0 ng/mL Normal TACROLIMUS 7.4 Result Comment: Trough (immediately following transplant) 15.0 Trough (steady state, 2 weeks or more after transplant): 3.0 - 8.0 Detection Limit = 1.0 Performed by LC-MS/MS technology. Performed at: - [facility] [id number] [employer] Clerk: Ivelisse Orourke MD, Phone: [phone] Performed By: #### L3380.1000 #### [facility] (refer to report for specific site) refer to report for address and phone number CBC-COMPLETE BLOOD CNT Collected: 05/04/2018 Status: F Source: MELVIN NO DIFF 5:40 AM [facility] REPOSITORY Order Comment: ROOM 127 TYPE CODE TESTS RESULT OUT OF RANGE REFERENCE UNITS LAB L100.1000 4.4-11.0 K/mm3 Normal WBC 4.6 LAB L100.1200 4.6-6.2 M/mm3 Normal RBC 5.24 LAB L100.1300 13.0-16.5 g/dl Normal HGB 13.0 LAB L100.1400 40-54 % Normal HCT 42.0 LAB L100.1500 80-94 fL Normal MCV 80.2 LAB L100.1600 27.0-32.0 pg Low MCH 24.8 LAB L100.1700 32-36 g/gl Low MCHC 31.0 LAB L100.1810 11.6-14.6 % High RDW CV 15.3 LAB L100.1820 35.1-43.9 fl High RDW SD 44.7 LAB L100.1900 150-450 K/mm3 Normal PLT 212 LAB L100.2000 6.2-12.0 fl Normal MPV 10.6 Performed By: #### L100.0500 #### [facility] [address] [place], [place], [address] BASIC METABOLIC Collected: 05/04/2018 Status: F Source: MELVIN PROFILE (BMP) 5:40 AM [facility] REPOSITORY Order Comment: ROOM 127 TYPE CODE TESTS RESULT OUT OF RANGE REFERENCE UNITS LAB L501.0100 74-106 mg/dL Normal GLU 80 Result Comment: Please note revised GLUCOSE reference range effective 2017. LAB L501.1000 7-18 mg/dL Normal BUN 18 LAB L501.1100 0.70-1.30 mg/dL High CREAT,SERUM 1.55 Result Comment: The validity of the calculated GFR AND GFRAA in patients over 70 years has not been determined. Clinical correlation is essential. LAB L501.1110 >60 mL/min Low EST GFR 51 Result Comment: Non- GFR Calc LAB L501.1115 >60 mL/min Normal EST GFR - AA 61 Result Comment: GFR Calc LAB L501.1300 10-20 RATIO Normal BUN/CRE 11.6 LAB L501.2200 8.5-10.1 mg/dL Low CA 7.5 LAB L501.5300 136-145 mmol/L NA Normal 141 LAB L501.5600 3.5-5.1 mmol/L K Normal 3.9 LAB L501.5900 98-107 mmol/L High CL 110 LAB L501.6100 21.0-32.0 mmol/L Normal CO2 23.0 LAB L501.6200 5-15 Normal GAP 8 Performed By: #### L500.2500 #### [facility] [address] [place], [address] CBC-COMPLETE BLOOD CNT Collected: 04/27/2018 Status: F Source: MELVIN NO DIFF 5:13 AM [facility] REPOSITORY Order Comment: 127 TYPE CODE TESTS RESULT OUT OF RANGE REFERENCE UNITS LAB L100.1000 4.4-11.0 K/mm3 Normal WBC 4.4 LAB L100.1200 4.6-6.2 M/mm3 Normal RBC 4.98 LAB L100.1300 13.0-16.5 g/dl Low HGB 12.5 LAB L100.1400 40-54 % Normal HCT 40.0 LAB L100.1500 80-94 fL Normal MCV 80.3 LAB L100.1600 27.0-32.0 pg Low MCH 25.1 LAB L100.1700 32-36 g/gl Low MCHC 31.3 LAB L100.1810 11.6-14.6 % High RDW CV 15.5 LAB L100.1820 35.1-43.9 fl High RDW SD 44.9 LAB L100.1900 150-450 K/mm3 Normal PLT 203 LAB L100.2000 6.2-12.0 fl Normal MPV 10.3 Performed By: #### L100.0500 #### [facility] [address] [place], [place], [address] BASIC METABOLIC Collected: 04/27/2018 Status: F Source: MELVIN PROFILE (BMP) 5:13 AM [facility] REPOSITORY Order Comment: 127 TYPE CODE TESTS RESULT OUT OF RANGE REFERENCE UNITS LAB L501.0100 74-106 mg/dL Normal GLU 75 Result Comment: Please note revised GLUCOSE reference range effective 2017. LAB L501.1000 7-18 mg/dL High BUN 20 LAB L501.1100 0.70-1.30 mg/dL High CREAT,SERUM 1.52 Result Comment: The validity of the calculated GFR AND GFRAA in patients over 70 years has not been determined. Clinical correlation is essential. LAB L501.1110 >60 mL/min Low EST GFR 52 Result Comment: Non- GFR Calc LAB L501.1115 >60 mL/min Normal EST GFR - AA 63 Result Comment: GFR Calc LAB L501.1300 10-20 RATIO Normal BUN/CRE 13.2 LAB L501.2200 8.5-10.1 mg/dL Low CA 8.0 LAB L501.5300 136-145 mmol/L NA Normal 143 LAB L501.5600 3.5-5.1 mmol/L K Normal 4.0 LAB L501.5900 98-107 mmol/L High CL 110 LAB L501.6100 21.0-32.0 mmol/L Normal CO2 25.0 LAB L501.6200 5-15 Normal GAP 8 Performed By: #### L500.2500 #### [facility] [address] [facility] [place], [address] BASIC METABOLIC Collected: 04/20/2018 Status: F Source: MELVIN PROFILE (BMP) 7:05 AM [facility] REPOSITORY TYPE CODE TESTS RESULT OUT OF RANGE REFERENCE UNITS LAB L501.0100 74-106 mg/dL Normal GLU 85 Result Comment: Please note revised GLUCOSE reference range effective 2017. LAB L501.1000 7-18 mg/dL Normal BUN 14 LAB L501.1100 0.70-1.30 mg/dL High CREAT,SERUM 1.55 Result Comment: The validity of the calculated GFR AND GFRAA in patients over 70 years has not been determined. Clinical correlation is essential. LAB L501.1110 >60 mL/min Low EST GFR 51 Result Comment: Non- GFR Calc LAB L501.1115 >60 mL/min Normal EST GFR - AA 61 Result Comment: GFR Calc LAB L501.1300 10-20 RATIO Low BUN/CRE 9.0 LAB L501.2200 8.5-10.1 mg/dL Low CA 7.9 LAB L501.5300 136-145 mmol/L Normal NA 142 LAB L501.5600 3.5-5.1 mmol/L Normal K 3.7 LAB L501.5900 98-107 mmol/L High CL 108 LAB L501.6100 21.0-32.0 mmol/L Normal CO2 26.0 LAB L501.6200 5-15 Normal GAP 8 Performed By: #### L500.2500 #### [facility] Laboratory [facility] [address] [place], [place], [address] CBC-COMPLETE BLOOD CNT Collected: 04/20/2018 Status: F Source: MELVIN NO DIFF 7:05 AM [facility] REPOSITORY TYPE CODE TESTS RESULT OUT OF RANGE REFERENCE UNITS LAB L100.1000 4.4-11.0 K/mm3 Normal WBC 5.3 LAB L100.1200 4.6-6.2 M/mm3 Normal RBC 5.32 LAB L100.1300 13.0-16.5 g/dl Normal HGB 13.3 LAB L100.1400 40-54 % Normal HCT 42.8 LAB L100.1500 80-94 fL Normal MCV 80.5 LAB L100.1600 27.0-32.0 pg Low MCH 25.0 LAB L100.1700 32-36 g/gl Low MCHC 31.1 LAB L100.1810 11.6-14.6 % High RDW CV 15.7 LAB L100.1820 35.1-43.9 fl High RDW SD 46.3 LAB L100.1900 150-450 K/mm3 Normal PLT 241 LAB L100.2000 6.2-12.0 fl Normal MPV 11.1 Performed By: #### L100.0500 #### [facility] [address] [place], [address] ESTABLISHED VISIT Observed: 04/14/2018 Status: UNK Source: UNIVERSITY (NEPHROLOGY) 10:55 AM [facility]IT[facility] Chief Complaint Post Kidney Transplant Follow Up History of Present Illness REFERRING DOCTOR: Dr. TOMASA HAN [phone] DEMOGRAPHICS: Ethnicity: Non- or Gender: Male PRIMARY [...] Updated By: Gardenia Ortega; 03/15/2018 10:30:05 AM O-Owpj-Ykphzne 155-852-130 MG Oral Tablet; TAKE 1 TABLET [...] ADRIAN = N; Record; Last Updated By: Gardneia Ortega; 03/15/2018 10:30:05 AM Senna Laxative 8.6 [...] Hypertension; ADRIAN = N; Verified Transmission to [address]; Last Updated By: Areli Brasher; 06/25/2017 4:52:58 PM Mycophenolate Mofetil 250 MG Oral Capsule; TAKE 2 CAPSULE Twice daily Requested for: 31May2017; Last Rx:07May2017 Ordered Rx By: Isac Thao; Dispense: 90 Days ; #:360 Capsule; Refill: 3;For: Immunosuppression, Kidney replaced by transplant; ADRIAN = N; Verified Transmission to [address] Tacrolimus 1 MG Oral Capsule; TAKE [...] 03/15/2018 10:17:01 AM Vitals Vital Signs Recorded: 18Ixw5594 10:06AM Uynqkcrvsug22.2 F, Oral Heart Ikhj786 Uqdmwici567 Qfvhtjxdb71 Height6 ft 1 in Eizgnu783 lb 3.2 oz BMI Yvaulolemw43.3 BSA Calculated2.08 O2 Swyyyqzczm82, RA Physical Exam Constitutional: No acute distress, [...] out. By signing my name below, I, Eugenio Montelongo, attest that this documentation has been prepared [...] Electronically signed by : Sara Rao MD; Apr 14 2018 10:55AM EST (Author) CBC-COMPLETE BLOOD CNT Collected: 04/13/2018 Status: F Source: MELVIN NO DIFF 8:05 AM [facility] REPOSITORY TYPE CODE TESTS RESULT OUT [...] MPV 10.9 Performed By: #### L100.0500 #### [facility] [address] [place], [place], [address] BASIC METABOLIC Collected: 04/13/2018 Status: F Source: MELVIN PROFILE (BMP) 8:05 AM [facility] REPOSITORY TYPE CODE TESTS RESULT OUT [...] 9 Performed By: #### L500.2500, L501.1800 #### [facility] [address] [place], [place], [address] ALBUMIN, SERUM Collected: 04/13/2018 Status: F Source: MELVIN 8:05 AM [facility] REPOSITORY TYPE CODE TESTS RESULT OUT OF RANGE REFERENCE UNITS LAB L501.1800 3.2-5.0 g/dL Normal ALB 3.4 Performed By: #### L500.2500, L501.1800 #### [facility] [address] [place], [place], [address] TACROLIMUS (PROGRAF) Collected: 04/13/2018 Status: F Source: MELVIN 8:05 AM [facility] REPOSITORY TYPE CODE TESTS RESULT OUT OF RANGE REFERENCE UNITS LAB L3380.1100 2.0-20.0 ng/mL Normal TACROLIMUS 5.2 Result Comment: Trough (immediately following transplant) 15.0 Trough (steady state, 2 weeks or more after transplant): 3.0 - 8.0 Detection Limit = 1.0 Performed by LC-MS/MS technology. Performed at: - [facility] [id number] [employer] Clerk: Ivelisse Orourke MD, Phone: [phone] Performed By: #### L3380.1000 #### [facility] (refer to report for specific site) refer to report for address and phone number CBC-COMPLETE BLOOD CNT Collected: 04/06/2018 Status: F Source: MELVIN NO DIFF 7:00 AM [facility] REPOSITORY Order Comment: ROOM 127 TYPE [...] MPV 11.3 Performed By: #### L100.0500 #### [facility] [address] [place], [place], [address] BASIC METABOLIC Collected: 04/06/2018 Status: F Source: MELVIN PROFILE ([facility]) 7:00 AM [facility] REPOSITORY Order Comment: ROOM 127 TYPE [...] GAP 7 Performed By: #### L500.2500 #### [facility] Laboratory [facility] [place], [address] BASIC METABOLIC Collected: 03/30/2018 Status: F Source: MELVIN PROFILE ([facility]) 6:45 AM [facility] REPOSITORY Order Comment: 127 TYPE CODE [...] GAP 8 Performed By: #### L500.2500 #### [facility] [address] [facility] [place], [place], [address] CBC-COMPLETE BLOOD CNT Collected: 03/30/2018 Status: F Source: MELVIN NO DIFF 6:45 AM [facility] REPOSITORY Order Comment: 127 TYPE CODE [...] MPV 11.0 Performed By: #### L100.0500 #### [facility] [address] [place], [address] BASIC METABOLIC Collected: 03/23/2018 Status: F Source: MELVIN PROFILE (BMP) 5:55 AM [facility] REPOSITORY Order Comment: 127 TYPE CODE [...] GAP 8 Performed By: #### L500.2500 #### [facility] [address] [place], [address] CBC-COMPLETE BLOOD CNT Collected: 03/23/2018 Status: F Source: ANAHEIM NO DIFF 5:55 AM [facility] REPOSITORY Order Comment: 127 TYPE CODE [...] MPV 11.6 Performed By: #### L100.0500 #### [facility] [address] [place], [place], [address] CBC-COMPLETE BLOOD CNT Collected: 03/16/2018 Status: F Source: MELVIN NO DIFF 5:55 AM [facility] REPOSITORY Order Comment: ROOM 127 TYPE [...] MPV 11.4 Performed By: #### L100.0500 #### [facility] [address] [facility]. [place], [place], [id number] RENAL PROFILE Collected: 03/16/2018 Status: F Source: MELVIN 5:55 AM [facility] REPOSITORY Order Comment: ROOM 127 TYPE [...] CO2 24.0 Performed By: #### L500.3600 #### [facility] [address] [place], [address] TACROLIMUS (PROGRAF) Collected: 03/16/2018 Status: F Source: ANAHEIM 5:55 AM [facility] REPOSITORY Order Comment: ROOM 127 TYPE CODE TESTS RESULT OUT OF RANGE REFERENCE UNITS LAB L3380.1100 2.0-20.0 ng/mL Normal TACROLIMUS 7.1 Result Comment: Trough (immediately following transplant) 15.0 Trough (steady state, 2 weeks or more after transplant): 3.0 - 8.0 Detection Limit = 1.0 Performed by LC-MS/MS technology. Performed at: - [facility] [address] [id number] [employer] Clerk: Ivelisse Orourke MD, Phone: [phone] Performed By: #### L3380.1000 #### [facility] (refer to report for specific site) refer to report for address and phone number ESTABLISHED VISIT Observed: 03/15/2018 Status: UNK Source: EIGHT MILE (NEPHROLOGY) 11:51 AM [facility] REPOSITORY Chief Complaint [...] by mouth at bedtime; Therapy: 13Aug2016 to (Evaluate:96Gvq5243) Requested for: 40Eer9043; Last Rx:58Ofw3078 Ordered Rx By: Sara Rao; Dispense: 30 Days ; #:30 TAB; Refill: 11;For: Hypertension; ADRIAN = N; Verified Transmission to [address]; Last Updated By: Areli Brasher; 06/25/2017 4:52:58 PM Mycophenolate Mofetil 250 MG Oral Capsule; TAKE 2 CAPSULE Twice daily Requested for: 31May2017; Last Rx:07May2017 Ordered Rx By: Isac Thao; Dispense: 90 Days ; #:360 Capsule; Refill: 3;For: Immunosuppression, Kidney replaced by transplant; ADRIAN = N; Verified Transmission to [address] Tacrolimus 1 MG Oral Capsule; TAKE [...] Oral Tablet; Take 1 tablet daily; Therapy: 19Sep2017 to (Evaluate:70Gwq8978) Recorded Dispense: 67 Days ; #:67 Tablet; Refill: 0; ADRIAN = N; Record; Last Updated By: Jahaira Luis; 03/15/2018 10:21:32 AM Vitals Vital Signs Recorded: 15Mar2018 10:07AM Vvfckqlbvls36 F, Oral Heart Zquh520 Zayzotxr646 Tskwyrzvm38 Height6 ft 1 in Odeqgy989 lb 14.4 oz BMI Ebasvgsvuy26.26 BSA Calculated2.08 O2 Xcqxncpikh67, RA Physical Exam Constitutional: Abnormal uses a [...] No livedo reticularis. Lymphatic: No lymphadenopathy. Results/Data Flmnyvtwcd14Abm9466 12:00AMPSara levy Test NameResultFlagReference FK506 Tacrolimus, Blood9.4 ng/mL2.0 - 15.0 NOTE: Result was obtained using a chemiluminescent microparticle immunoassay (CMIA) on the Cigarette Making Examiner i system. Optimal therapeutic ranges for immuno- suppressant drugs depend upon an individual ashu ent's current clinical state, type of organ transplant, time post-transplant, co- administration of other immunosuppressants, and other clinical factors. The results of this test should be correlated wit h additional clinical and laboratory data before changes in treatment regimens are made. Complete Blood Blbjh88Vxo3875 08:18AMPSara levy Test NameResultFlagReference White Blood Cell Count3.9 x10E9/LL4.4 - 11.3 Red Blood Cell Count5.04 x10E12/LSee Below Reference Range: 4.50 - 5.90 Nucleated Erythrocyte Count0.0 /100 WBC0.0-0.0 Xdzkdimbpv57.7 g/dLSee Below Reference Range: 13.5 - 17.5 HCT46.0 %See Below Reference Range: 41.0 - 52.0 MCV91 fL80 - 100 MCHC32.0 g/dLSee Below Reference Range: 32.0 - 36.0 Platelet Xmzvb861 x10E9/L150 - 450 RDW-CV13.6 %See Below Reference Range: 11.5 - 14.5 Renal Function Eoojx53Osp0749 08:18AMPSara levy Test NameResultFlagReference Glucose, Serum68 mg/dLL74 - 99 Sodium, Wvuto299 mmol/L136 - 145 POTASSIUM4.0 mmol/L3.5 - 5.3 Chloride, Xdjwz767 mmol/LH98 - 107 Bicarbonate, Serum23 mmol/L21 - 32 Anion Gap, Serum12 mmol/L10 - 20 Blood Urea Nitrogen, Serum21 mg/dL6 - 23 CREATININE1.56 mg/dLHSee Below Reference Range: 0.50 - 1.30 GFR Non Kooyipsf92 mL/min/1.73m2A>60 GFR Jzyjlagi01 mL/min/1.73m2A>60 CALCULATIONS OF ESTIMATED GFR ARE PERFORMED [...] - I will have a social media director talk to sister -I will call to get labs from January By signing my name below, I, Katlin BhandariyemijolieEugenio, attest that this documentation has been prepared [...] F Source: MELVIN NO DIFF 6:15 AM [facility] REPOSITORY Order Comment: RM 127 TYPE [...] MPV 10.8 Performed By: #### L100.0500 #### [facility] [address] [place], [place], [id number] BASIC METABOLIC Collected: 03/09/2018 Status: F Source: MELVIN PROFILE (BMP) 6:15 AM [facility] REPOSITORY Order Comment: RM 127 TYPE [...] GAP 10 Performed By: #### L500.2500 #### [facility] [address] [place], [place], [id number] CBC-COMPLETE BLOOD CNT Collected: 03/02/2018 Status: F Source: MELVIN NO DIFF 6:20 AM [facility] REPOSITORY Order Comment: ROOM 127 TYPE [...] MPV 10.5 Performed By: #### L100.0500 #### [facility] [address] [place], [address] BASIC METABOLIC Collected: 03/02/2018 Status: F Source: MELVIN PROFILE (BMP) 6:20 AM [facility] REPOSITORY Order Comment: ROOM 127 TYPE [...] GAP 7 Performed By: #### L500.2500 #### [facility] [address] [place], [address] EMERGENCY DEPARTMENT Observed: 02/24/2018 Status: F Source: MELVIN SUMMARY 3:35 AM [facility] REPOSITORY [facility] Medical Records Department [address] [place] [address] Emergency Department Summary 02/24/18 0131 MR#: [id number] Acct: [id number] Name: SKYLER PINZON Rep #: [id number] : 1965 52 From: Vania Sullivan MD PCP: Mike Bella MD Status: DEP ER - ER Visit Summary Date of Service: 02/24/18 Chief Complaint: Decreased urine output History of Present Illness: The patient is a 52 M [facility] decreased urine output. Patient gets straight [...] RBCs. Emergency Department Course and Treatment: 16 Nigerian Ga was placed by nursing staff. One [...] 2. Cystitis This note was generated with Txt4 dictation software. It may contain incorrect words, [...] problems, contact your Primary Care Provider. Call [facility] ([phone]) or report to the closest Emergency Room. Call 911 if necessary. 02/24/18 033 <Electronically signed by Vania Sullivan MD> Date Vania Sullivan MD Cosigner Signature (If Indicated): Date CC: Mike Bella MD DISCHARGE INSTRUCTION Observed: 02/24/2018 Status: F Source: ANAHEIM 1:32 AM [facility] REPOSITORY [facility] Medical Records Department [address] [place] [address] [place] [address] Discharge Instruction 02/24/18130 MR#: [id number] Acct: [id number] Name: SKYLER PINZON Rep #: [id number] : 1965 52 From: Vania Sullivan MD [...] your Primary Care Provider. Call [facility] ([phone]) or report to the closest Emergency Room. Call 911 if necessary. 02/24/18131 <Electronically signed by Vania Sullivan MD> Date Vania Sullivan MD Cosigner Signature (If Indicated): Date CC: Mike Bella MD URINALYSIS, COMPLETE Collected: 02/24/2018 Status: F Source: MELVIN 12:50 AM [facility] REPOSITORY Order Comment: Order Date: 02/24/18 [...] URINE SEEN Performed By: #### L400.0001 #### [facility] [address] [place], [address] Observed: 02/24/2018 Status: F Source: MELVIN CULTURE, URINE 12:50 AM [facility] REPOSITORY Order Date: 02/24/18 Urine Culture ORGANISM 1: Staphylococcus epidermidis [place] Count >100,000 Staphylococcus epidermidis: REACTION Benzylpenicillin NF >=0.5 R Cefoxitin *NF + Inducable Clindamycin [place] - Gentamicin $ <=0.5 S Levofloxacin $ 0.5 S Linezolid $$$$ 1 S Nitrofurantoin $ <=16 S Oxacillin NF >=4 R Rifampin $$ <=0.5 S Tetracycline NF 2 S Vancomycin $ 1 S (NF) indicates non-formulary drug at [facility]. Approval by Infectious Disease Specialist required before non-formulary drugs may be ordered and/or dispensed. * CLSI guidelines does not recommend testing of cephalosporins. This interpretation is deduced from Beta-lactam/penicillin results. Performed By: #### M100.0650 #### [facility] [address] [place], [address] CBC W/DIFF, AUTOMATED Collected: 02/24/2018 Status: F Source: ANAHEIM 12:19 AM [facility] REPOSITORY TYPE CODE TESTS RESULT OUT [...] Lymph 1.58 Performed By: #### L100.0100 #### [facility] [address] [place], [address] BASIC METABOLIC Collected: 02/24/2018 Status: F Source: MELVIN PROFILE (BMP) 12:19 AM [facility] REPOSITORY TYPE CODE TESTS RESULT OUT [...] GAP 8 Performed By: #### L500.2500 #### [facility] [address] [place] [place], [address] CBC-COMPLETE BLOOD CNT Collected: 02/23/2018 Status: F Source: MELVIN NO DIFF 7:45 AM [facility] REPOSITORY TYPE CODE TESTS RESULT OUT [...] MPV 11.3 Performed By: #### L100.0500 #### [facility] [address] [place], [address] BASIC METABOLIC Collected: 02/23/2018 Status: F Source: ANAHEIM PROFILE (BMP) 7:45 AM [facility] REPOSITORY TYPE CODE TESTS RESULT OUT [...] GAP 7 Performed By: #### L500.2500 #### [facility] [address] [place] [place], [place], [address] CBC-COMPLETE BLOOD CNT Collected: 02/16/2018 Status: F Source: MELVIN NO DIFF 5:35 AM [facility] REPOSITORY Order Comment: 127 TYPE CODE [...] MPV 11.3 Performed By: #### L100.0500 #### [facility] [address] [facility]. [place], [place], [address] BASIC METABOLIC Collected: 02/16/2018 Status: F Source: MELVIN PROFILE (BMP) 5:35 AM [facility] REPOSITORY Order Comment: 127 TYPE CODE [...] GAP 8 Performed By: #### L500.2500 #### [facility] [address] [place], [place], [address] BASIC METABOLIC Collected: 02/09/2018 Status: F Source: ANAHEIM PROFILE (BMP) 6:05 AM [facility] REPOSITORY Order Comment: ROOM 120 TYPE [...] GAP 8 Performed By: #### L500.2500 #### [facility] [address] [place], [address] CBC-COMPLETE BLOOD CNT Collected: 02/09/2018 Status: F Source: MELVIN NO DIFF 6:05 AM [facility] REPOSITORY Order Comment: ROOM 120 TYPE [...] MPV 10.3 Performed By: #### L100.0500 #### [facility] [address] [facility] [place], [address] Observed: 02/09/2018 Status: F Source: MELVIN CULTURE, URINE 12:00 AM [facility] REPOSITORY Urine Culture Culture exhibits no growth. Performed By: #### M100.0650 #### [facility] Laboratory [facility] [place], [address] DISCHARGE SUMMARY Observed: 02/04/2018 Status: F Source: MELVIN 6:21 PM [facility] REPOSITORY [facility] Medical Records Department [facility] [place] [address] Discharge Summary 01/25/18 1729 MR#: [id number] Acct: [id number] Name: SKYLER PINZON Rep #: [id number] : 1965 52 From: Mikey Rinaldi MD PCP: iMke Bella MD Status: DIS IN Y Location: [address] ADDENDUM by Mikey Rinaldi MD on 02/04/18 at 1821 Code Visit Discharge to [address] [facility] [place] 02/01/2018. 02/04/18 1821 <Electronically signed by Mikey Rinaldi MD> Date Mikey Rinaldi MD cc: Mike [...] for rehabilitation, strengthening, prior to discharge to [facility]. Urine culture grew [facility] possible enterococcus, discharge [...] kidney in his right pelvis. Discharge to [facility]. Discharge Diet: No Restrictions Discharge Activity: Return [...] (Choose all that apply): None applicable 01/25/18 6896 <Electronically signed by Mikey Rinaldi MD> Date Mikey Rnialdi MD Cosigner Signature (if applicable): Date CC: Mike Bella MD; Mikey Rinaldi MD Signed CBC-COMPLETE BLOOD CNT Collected: 02/02/2018 Status: F Source: MELVIN NO DIFF 5:45 AM [facility] REPOSITORY Order Comment: 127 TYPE CODE [...] MPV 10.5 Performed By: #### L100.0500 #### [facility] [address] [place], [place], [address] BASIC METABOLIC Collected: 02/02/2018 Status: F Source: MELVIN PROFILE (BMP) 5:45 AM [facility] REPOSITORY Order Comment: 127 TYPE CODE [...] GAP 7 Performed By: #### L500.2500 #### [facility] [address] [place], [address] CBC W/DIFF, AUTOMATED Collected: 01/31/2018 Status: F Source: ANAHEIM 5:25 AM [facility] REPOSITORY TYPE CODE TESTS RESULT OUT [...] Lymph 0.79 Performed By: #### L100.0100 #### [facility] [address] [facility] [place], [address] BASIC METABOLIC Collected: 01/31/2018 Status: F Source: MELVIN PROFILE (BMP) 5:25 AM [facility] REPOSITORY TYPE CODE TESTS RESULT OUT [...] GAP 8 Performed By: #### L500.2500 #### [facility] [address] [facility] [place], [address] DISCHARGE INSTRUCTION Observed: 01/28/2018 Status: F Source: MELVIN 2:10 PM [facility] REPOSITORY [facility] Medical Records Department [address] [place] [address] Instructions for Home/Discharge Instructions 01/25/18 1727 MR#: [id number] Acct: [id number] Name: SKYLER PINZON Rep #: [id number] : 1965 52 From: Mikey Rinaldi MD PCP: Mike Bella MD Status: ADM IN ADDENDUM by Mikey Rinaldi MD on 01/28/18 at 1410 Discharge to the [facility] [place] 01/31/2018 skilled for straight cathing. 01/28/18 1410 Date Mikey Rinaldi MD cc: Nakul Crenshaw MD; Mike Bella MD; Cheng Santos MD * Signed ADDENDUM by Mikey Rinaldi MD on 01/28/18 at 1407 Discharge to the [facility] in [place] 01/30/2018 skilled for straight cathing. 01/28/18 1407 Date Mikey Rinaldi MD cc: Nakul Crenshaw MD; Mike Bella MD; Cheng Santos MD * Signed - Discharge Diagnoses Current Active Problems: Current Active and Chronic Problems (Last Reviewed 12/22/17 @ 11:28 by Siria Harp NP-Lester) Urinary tract infection (Acute) Abdominal pain (Acute) [...] 2 weeks. Proposed Discharge Date: 01/29/18 01/25/18 7099 <Electronically signed by Mikey Rinaldi MD> Date Mikey Rinaldi MD CC: Nakul Crenshaw MD; Mike Bella MD; Cheng Santos MD TRANSFER TO [facility] Observed: 01/28/2018 Status: F Source: [facility] 2:09 PM [facility] REPOSITORY [facility] Medical Records Department [address] [place] [address] Transfer to [facility] Care MR#: [id number] Acct: [id number] Name: SKYLER PINZON Rep #: [id number] : 1965 52 From: Mikey Rinaldi MD PCP: Mike Bella MD Status: ADM IN SKYLER PINZON [id number] (Patient) (Health Ins. Claim No.) (Day of Discharge to Facility) Certification of patient admission REQUIRED AT TIME OF ADMISSION. I CERTIFY THAT POST-HOSPITAL ECF SERVICES ARE REQUIRED TO BE GIVEN ON AN IN-PATIENT BASIS BECAUSE OF THE ABOVE NAMED PATIENT'S NEED FOR ASSISTED CARE ON A CONTINUING BASIS FOR THE [...] Signed CONSULTATION Observed: 01/27/2018 Status: F Source: MELVIN 10:28 AM [facility] REPOSITORY [facility] Medical Records Department [address] [place] [address] Consultation 01/27/18 1026 MR#: [id number] Acct: [id number] Name: SKYLER PINZON Rep #: [id number] : 1965 52 From: Cheng Santos MD PCP: Mike Bella MD Status: ADM IN Y Location: [place] [address] Problem List (1) Urinary tract infection Status: [...] F Source: MELVIN AND/OR ERECT 11:09 AM [facility] REPOSITORY [facility] Imaging Services [address] [place], [place] [id number] Abd Inc Decub and/or Erect MR#: [id number] Acct: [id number] Name: SKYLER PINZON Rep #: [id number] : 1965 M 52 From: Manolo Julian MD PCP: Mike Bella MD Status: ADM IN Study: Abd Inc Decub and/or Erect Date of Exam: 01/26/18 Exam# [id number] Ordering Dr: Mikey Rinaldi MD STUDY: X-RAY [...] Manolo Julian MD at 12:56 EDT Tel [phone], Service support , CC: Mike Bella MD; Mikey Rinaldi MD Spring Clipper: Signed BASIC METABOLIC Collected: 01/24/2018 Status: F Source: MELVIN PROFILE (BMP) 5:30 AM [facility] REPOSITORY TYPE CODE TESTS RESULT OUT [...] 7 Performed By: #### L500.2500, L501.9940 #### [facility] [address] [place], [address] PSA,TOTAL- DIAGNOSTIC Collected: 01/24/2018 Status: F Source: ANAHEIM 5:30 AM [facility] REPOSITORY TYPE CODE TESTS RESULT OUT OF RANGE REFERENCE UNITS LAB L501.9940 0.0-4.0 ng/mL PSA, Normal DIAGNOSTIC 1.97 Result Comment: This test was performed using the TPSA assay method for the Flight[employer] chemistry system. Values obtained with different assay methods cannot be used interchangably. When changing PSA assays in the course of monitoring a patient, additional sequential testing should be carried out to confirm baseline values. Performed By: #### L500.2500, L501.9940 #### [facility] [address] [place], [address] URINALYSIS, COMPLETE Collected: 01/23/2018 Status: F Source: ANAHEIM 6:55 PM [facility] REPOSITORY Order Comment: Microscopic field is [...] URINE SEEN Performed By: #### L400.0001 #### [facility] [address] [facility] [place], [address] Observed: 01/23/2018 Status: F Source: ANAHEIM CULTURE, URINE 6:55 PM [facility] REPOSITORY Urine Culture ORGANISM 1: Enterococcus faecium [place] Count >100,000 Enterococcus faecium: REACTION Ampicillin $ >=32 R Benzylpenicillin NF >=64 R Ciprofloxacin $ >=8 R Gentamicin SYN-S S Levofloxacin $ >=8 R Linezolid $$$$ 2 S Nitrofurantoin $ 64 I Streptomycin $ SYN-S S Tetracycline NF >=16 R Vancomycin $ <=0.5 S (NF) indicates non-formulary drug at [facility]. Approval by Infectious Disease Specialist required before non-formulary drugs may be ordered and/or dispensed. * CLSI guidelines does not recommend testing of cephalosporins. This interpretation is deduced from Beta-lactam/penicillin results. Performed By: #### M100.0650 #### [facility] [address] [place], [place], [address] ABDOMEN SINGLE VIEW Observed: 01/22/2018 Status: F Source: ANAHEIM 12:30 PM [facility] REPOSITORY [facility] Imaging Services [address] [place] [address] Abdomen Single View MR#: [id number] Acct: [id number] Name: SKYLER PINZON Rep #: [id number] : 1965 M 52 From: Sean Rojas MD PCP: Mike Bella MD Status: ADM IN Study: Abdomen Single View Date of Exam: 01/22/18 Exam# [id number] Ordering Dr: Mikey Rinaldi MD STUDY: X-RAY [...] CC: Mike Bella MD; Mikey Rinaldi MD Spring Clipper: Signed RENAL PROFILE Collected: 01/21/2018 Status: F Source: MELVIN 5:20 AM [facility] REPOSITORY TYPE CODE TESTS RESULT OUT [...] CO2 26.0 Performed By: #### L500.3600 #### [facility] [place], [address] CBC W/DIFF, AUTOMATED Collected: 01/21/2018 Status: F Source: ANAHEIM 5:20 AM [facility] REPOSITORY TYPE CODE TESTS RESULT OUT [...] Lymph 0.99 Performed By: #### L100.0100 #### [facility] [address] [place], [address] TACROLIMUS (PROGRAF) Collected: 01/21/2018 Status: F Source: ANAHEIM 5:20 AM [facility] REPOSITORY TYPE CODE TESTS RESULT OUT OF RANGE REFERENCE UNITS LAB L3380.1100 2.0-20.0 ng/mL Normal TACROLIMUS 6.4 Result Comment: Trough (immediately following transplant) 15.0 Trough (steady state, 2 weeks or more after transplant): 3.0 - 8.0 Detection Limit = 1.0 Performed by LC-MS/MS technology. Performed at: [facility] [id number] Spare Parts Clerk: Renan Soares MD, Phone: [phone] Performed By: #### L3380.1000 #### [facility] (refer to report for specific site) refer to report for address and phone number CONSULTATION Observed: 01/20/2018 Status: F Source: ANAHEIM 12:37 PM [facility] REPOSITORY [facility] Medical Records Department [address] [place] [address] Consultation 01/20/18 1234 MR#: [id number] Acct: [id number] Name: SKYLER PINZON Rep #: [id number] : 1965 52 From: Nakul Crenshaw MD PCP: Mike Bella MD Status: ADM IN Y Location: [facility] TCU13-1 Problem List (1) Recurrent sepsis due to [...] follow-up in my office as planned. 01/20/18 1237 <Electronically signed by Nakul Crenshaw MD> Date Nakul Crenshaw MD Cosigner Signature (if applicable): Date CC: Nakul Crenshaw MD; Mike Bella MD Signed URINALYSIS, ROUTINE Collected: 01/18/2018 Status: F Source: MELVIN (DIPSTICK) 12:00 PM [facility] REPOSITORY Order Comment: Diagnosis: cloudy, foul [...] High LEUK 25 ESTERASE Performed By: #### L400.2010 #### [facility] [address] [place], [address] Observed: 01/18/2018 Status: F Source: MELVIN CULTURE, URINE 12:00 PM [facility] REPOSITORY Order Date: 01/18/18 Urine Culture Culture exhibits no growth. Performed By: #### M100.0650 #### [facility] [address] [place], [address] HISTORY AND PHYSICAL Observed: 01/17/2018 Status: F Source: ANAHEIM EXAM 8:21 AM [facility] REPOSITORY [facility] Medical Records Department [address] [place] [address] History and Physical 01/16/182014 MR#: [id number] Acct: [id number] Name: SKYLER PINZON Rep #: [id number] : 1965 52 From: Mikey Rinaldi MD PCP: Mike Bella MD Status: ADM IN Location: [place] [address] Problem List (1) Urinary tract infection Status: [...] for rehabilitation, strengthening, prior to discharge to fdc. The patient is a 52 year old Male with below past medical history presented to [facility] Department 01/11/2018 with abdominal pain. 01/11/2018 CT abdomen and pelvis, distended urinary bladder, cystitis, mild hydronephrosis right pelvis transplant kidney, marked hydronephrosis [place] kidneys, small bowel obstruction, moderate stool in [...] Crenshaw. Kidney function back to baseline. Consider fdc after short term rehab. C. Diff NEGATIVE. 01/16/2018 Admit to TCU with debility, here for rehabilitation, strengthening, prior to placement in fdc if possible. Past Medical History Past Medical [...] for rehabilitation, strengthening, prior to discharge to fdc. * Debility - PT/OT. * Pain - [...] 01/16/2018 Status: F Source: MELVIN 8:35 PM [facility] REPOSITORY [facility] Imaging Services [address] [place] [address] Abdomen Single View MR#: [id number] Acct: [id number] Name: SKYLER PINZON Rep #: [id number] : 1965 M 52 From: Andrzej Liu MD PCP: Mike Bella MD Status: ADM IN Study: Abdomen Single View Date of Exam: 01/16/18 Exam# [id number] Ordering Dr: Mikey Rinaldi MD STUDY: X-RAY [...] CC: Mike Bella MD; Mikey Rinaldi MD Spring Clipper: Signed DISCHARGE SUMMARY Observed: 01/16/2018 Status: F Source: MELVIN 11:38 AM [facility] REPOSITORY [facility] Medical Records Department [address] [place] [address] Discharge Summary 01/16/18 0749 MR#: [id number] Acct: [id number] Name: SKYLER PINZON Rep #: [id number] : 1965 52 From: Jesica Russo PCP: Mike Bella MD Status: ADM IN Y Location: [place] [address] Discharge Date and Diagnosis - Problem List Patient Problems: Active and Suspected Problems (Last Reviewed 12/22/17 @ 11:28 by Siria Harp ACCESS SERVICES REPRESENTATIVE-C) Sepsis (Acute) PRISCILLA (acute kidney injury) (Acute) Date of Admission: 01/11/18 Date of Discharge: 01/16/18 - Primary Discharge Diagnosis Active and Suspected Problems (Last Reviewed 12/22/17 @ 11:28 by Siria Harp ACCESS SERVICES REPRESENTATIVE-C) (1) Acute Sepsis secondary to Suspected Acute [...] Reviewed 12/22/17 @ 11:28 by Siria Harp ACCESS SERVICES REPRESENTATIVE-C) Pulmonary embolism (Chronic) Pulmonary infiltrate present on [...] on xarelto regimen who presented to the [facility] ED on 01/11/18 with history of ongoing low-grade temperatures, fatigue, weakness, more quiet than usual per sister report in addition to onset of suprapubic discomfort on day of ED presentation. Hx non-compliant with self catherization regimen. Ga placed in the ED. Admitted to [facility] upon ED evaluation remarkable, UCx however without [...] as marked hydroureter and hydronephrosis of the [place] ureters and kidneys increased compared to prior CT, small bowel ileus with no evidence of bowel obstruction with moderate stool in the colon per recommendation of Dr. Cuevas, current data integrity consultant Urologist. Amenable to d/c ga catheter and [...] as marked hydroureter and hydronephrosis of the [place] ureters and kidneys increased compared to prior [...] Anhydrous [Prograf] 2 mg PO 0900,2100 01/11/18 Loperamide [Imodium] 2 mg PO Q2H PRN [...] within 2-4 weeks w/ your team. Disposition: Shelter facility Minutes spent on discharge:: 35 Patient Condition:: Fair Medical Necessity - Tobacco Use Smoking Status: Never smoker Tobacco Use: Non-smoker Meaningful Use Info Meaningful Use Diagnoses (Choose all that apply): None applicable Code Visit Inpatient E AND M: 72559 Disch Hosp 01/16/18 1138 <Electronically signed by Jesica Russo > Date Jesica Russo Cosigner Signature (if applicable): Date CC: Jesica Russo; Mike Bella MD Signed TRANSFER TO EXTENDED Observed: 01/16/2018 Status: F Source: [facility] 7:49 AM [facility] REPOSITORY [facility] Medical Records Department [address] [place] [address] Transfer to Extended Care MR#: [id number] Acct: [id number] Name: SKYLER PINZON Rep #: [id number] : 1965 52 From: Jesica Russo PCP: Mike Bella MD Status: ADM IN SKYLER PINZON George (Patient) (Health Ins. Claim No.) (Day of Discharge to Facility) Certification of patient admission REQUIRED AT TIME OF ADMISSION. I CERTIFY THAT POST-HOSPITAL ECF SERVICES ARE REQUIRED TO BE GIVEN ON AN IN-PATIENT BASIS BECAUSE OF THE ABOVE NAMED PATIENT'S NEED FOR ASSISTED CARE ON A CONTINUING BASIS FOR THE CONDITION(S) FOR WHICH HE/SHE WAS RECEIVING IN-PATIENT HOSPITAL SERVICES PRIOR TO HIS/HER TRANSFER TO THE ECF. 01/16/18 0749 <Electronically signed by Jesica Russo > Date Jesica Russo - Diet 01/11/18 19:16 Diet: Cardiac/Low Cholesterol [...] 01/15/2018 Status: F Source: MELVIN 6:55 AM [facility] REPOSITORY TYPE CODE TESTS RESULT OUT [...] CO2 22.0 Performed By: #### L500.3600 #### [facility] [address] [place], [place], [address] CBC W/DIFF, AUTOMATED Collected: 01/15/2018 Status: F Source: ANAHEIM 6:55 AM [facility] REPOSITORY TYPE CODE TESTS RESULT OUT [...] Lymph 0.84 Performed By: #### L100.0100 #### [facility] [address] [facility] [place], [address] Observed: 01/14/2018 Status: F Source: ANAHEIM CDIFF (MOLECULAR) 12:05 PM [facility] REPOSITORY Is the patient receiving laxatives? N New/unexplained onset of 3 or more stools in past 24 hrs? Y Cdiff-Molecular C. Diff DNA Negative- No toxigenic C. Diff DNA Detected NAAT METHOD Testing was performed using nucleic acid amplification Performed By: #### M100.6796 #### [facility] [address] [facility] [place], [address] CBC W/DIFF, AUTOMATED Collected: 01/14/2018 Status: F Source: ANAHEIM 6:10 AM [facility] REPOSITORY TYPE CODE TESTS RESULT OUT [...] Lymph 0.71 Performed By: #### L100.0100 #### [facility] [address] [place], [address] BASIC METABOLIC Collected: 01/14/2018 Status: F Source: ANAHEIM PROFILE ([facility]) 6:10 AM [facility] REPOSITORY TYPE CODE TESTS RESULT OUT [...] GAP 9 Performed By: #### L500.2500 #### [facility] [place], [address] CBC W/DIFF, AUTOMATED Collected: 01/13/2018 Status: F Source: ANAHEIM 7:50 AM [facility] REPOSITORY TYPE CODE TESTS RESULT OUT [...] LYMPHOPENIA NOTED. Performed By: #### L100.0100 #### [facility] [address] [facility] [place], [address] BASIC METABOLIC Collected: 01/13/2018 Status: F Source: MELVIN PROFILE (BMP) 7:50 AM [facility] REPOSITORY TYPE CODE TESTS RESULT OUT [...] GAP 10 Performed By: #### L500.2500 #### [facility] [address] [place], [address] Observed: 01/12/2018 Status: F Source: MELVIN CULTURE, URINE 11:35 AM [facility] REPOSITORY Has pt arrived? Y Urine Culture Culture exhibits no growth. Performed By: #### M100.0650 #### [facility] [address] [place], [place], [address] Observed: 01/12/2018 Status: F Source: MELVIN CULTURE, BLOOD (WB) 11:14 AM [facility] REPOSITORY Has pt arrived? Y BC No growth in 5 days. Performed By: #### M200.1000 #### [facility] [address] [place], [address] Observed: 01/12/2018 Status: F Source: MELVIN CULTURE, BLOOD (WB) 11:10 AM [facility] REPOSITORY Has pt arrived? Y BC No growth in 5 days. Performed By: #### M200.1000 #### [facility] [address] [place], [address] CBC W/DIFF, AUTOMATED Collected: 01/12/2018 Status: F Source: MELVIN 5:58 AM [facility] REPOSITORY TYPE CODE TESTS RESULT OUT [...] Lymph 0.64 Performed By: #### L100.0100 #### [facility] [address] [facility] [place], [address] BASIC METABOLIC Collected: 01/12/2018 Status: F Source: MELVIN PROFILE (BMP) 5:58 AM [facility] REPOSITORY TYPE CODE TESTS RESULT OUT [...] GAP 9 Performed By: #### L500.2500 #### [facility] [address] [place] [place], [address] HISTORY AND PHYSICAL Observed: 01/11/2018 Status: F Source: MELVIN EXAM 7:46 PM [facility] REPOSITORY [facility] Medical Records Department [address] [place] [address] History and Physical 01/11/18 1901 MR#: [id number] Acct: [id number] Name: SKYLER PINZON Rep #: [id number] : 1965 52 From: Jesica Russo PCP: Mike Bella MD Status: ADM IN Y Location: [place] [address] Problem List (1) Acute UTI Status: Acute [...] on xarelto regimen who presents to the [facility] ED on 01/11/18 with history of ongoing [...] as marked hydroureter and hydronephrosis of the [place] ureters and kidneys increased compared to prior [...] 12/22/17 @ 11:28 by Siria Harp NP-Lester) Sepsis (Acute) PRISCILLA (acute kidney injury) (Acute) [...] Problems (Last Reviewed 12/22/17 @ 11:28 by EVIE HullC) Sepsis (Acute) PRISCILLA (acute kidney injury) (Acute) [...] on xarelto regimen who presents to the [facility] ED on 01/11/18 with history of ongoing [...] noted. Code Visit Inpatient E AND M: 61926 Init Hosp L3 01/11/181945 <Electronically signed by Jesica Russo > Date Jesica George Rafaela Cosigner Signature: Date (if applicable) CC: Jesica Russo; Mike Bella MD Signed EMERGENCY DEPARTMENT Observed: 01/11/2018 Status: F Source: ANAHEIM SUMMARY 7:11 PM [facility] REPOSITORY [facility] Medical Records Department [address] [place] [address] Emergency Department Summary 01/11/18 1554 MR#: [id number] Acct: [id number] Name: SKYLER PINZON Rep #: [id number] : 1965 52 From: Ga Hollingsworth MD [...] UTI, ileus, This note was generated with Txt4 dictation software. It may contain incorrect words, [...] your Primary Care Provider. Call [facility] ([phone]) or report to the closest Emergency Room. Call 911 if necessary. 01/11/181910 <Electronically signed by Ga Hollingsworth MD> Date Ga Hollingsworth MD Cosigner Signature (If Indicated): Date CC: Mike Bella MD LACTIC ACID Collected: 01/11/2018 Status: F Source: ANAHEIM 7:10 PM [facility] REPOSITORY Order Comment: Yes/No query for Sepsis Lactate Rule Y TYPE CODE TESTS RESULT OUT OF RANGE REFERENCE UNITS LAB L503.6005 0.4-2.0 mmol/L Normal LACTIC ACID 0.7 Performed By: #### L503.6005 #### [facility] [address] [facility] [place], [address] ABDOMEN/PELVIS WITHOUT Observed: 01/11/2018 Status: F Source: MELVIN CONT 3:55 PM [facility] REPOSITORY [facility] Imaging Services [address] [facility] [place] [address] Abdomen/Pelvis without Cont MR#: [id number] Acct: [id number] Name: SKYLER PINZON Rep #: [id number] : 1965 M 52 From: Vania Miramontes MD PCP: Mike Bella MD Status: REG Study: Abdomen/Pelvis without Cont Date of Exam: 01/11/18 Exam# [id number] Ordering Dr: Ga Hollingsworth MD STUDY: CT [...] unremarkable. The adrenal glands are unremarkable. The [place] kidneys are markedly atrophic with cortical thinning and numerous cysts. There is marked dilatation of the collecting systems in both [place] kidneys, and there is marked dilatation of both [place] ureters. There is a transplant kidney in [...] is marked hydroureter and hydronephrosis of the [place] ureters and kidneys, increased compared to the prior CT. There is small bowel ileus. There is no evidence of bowel obstruction. There is moderate stool in the colon. There is no ascites, free air or significant lymphadenopathy. Electronically Signed: Vania Miramontes MD at 16:50 EDT Tel Direct: [phone], Service support , CC: Ga Hollingsworth MD; Mike Bella MD Spring Clipper: Signed BASIC METABOLIC Collected: 01/11/2018 Status: F Source: MELVIN PROFILE (BMP) 3:50 PM [facility] REPOSITORY TYPE CODE TESTS RESULT OUT [...] GAP 12 Performed By: #### L500.2500 #### [facility] [address] [place], [place], [address] CBC W/DIFF, AUTOMATED Collected: 01/11/2018 Status: F Source: MELVIN 3:50 PM [facility] REPOSITORY TYPE CODE TESTS RESULT OUT [...] Lymph 0.64 Performed By: #### L100.0100 #### [facility] [address] [place], [place], [address] LIPASE Collected: 01/11/2018 Status: F Source: MELVIN 3:50 PM [facility] REPOSITORY TYPE CODE TESTS RESULT OUT OF RANGE REFERENCE UNITS LAB L501.2450 73-393 U/L Normal LIPASE 230 Performed By: #### L501.2450 #### [facility] [address] [place], [place], [address] LIVER PROFILE Collected: 01/11/2018 Status: F Source: MELVIN 3:50 PM [facility] REPOSITORY TYPE CODE TESTS RESULT OUT [...] BILI 0.12 Performed By: #### L500.3400 #### [facility] [address] [facility] [place], [address] MAGNESIUM Collected: 01/11/2018 Status: F Source: MELVIN 3:50 PM [facility] [facility] REPOSITORY TYPE CODE TESTS RESULT OUT OF RANGE REFERENCE UNITS LAB L501.5200 1.6-2.6 mg/dL Normal MG 2.0 Performed By: #### L501.5200 #### [facility] [address] [place], [place], [address] URINALYSIS, COMPLETE Collected: 01/11/2018 Status: F Source: MELVIN 2:43 PM [facility] REPOSITORY Order Comment: Microscopic field is [...] URINE SEEN Performed By: #### L400.0001 #### [facility] [address] [facility]. [place], [place], [address] PULMONARY VISIT REPORT Observed: 12/22/2017 Status: F Source: ANAHEIM 12:01 PM [facility] REPOSITORY Pulmonary Medicine of [address] [place], [place] [address] OFFICE VISIT Date of Service: 12/22/17 MR#: [id number] Acct: [id number] Name: SKYLER PINZON Rep #: [id number] : 1965 Provider: Siria Harp Age/Sex: 52/M [place] [facility] Status: Signed Assessment AND Plan 1. Vocal [...] 2 W FU Chief Complaint: chest pain Library Technical Assistant Required: No Is patient in pain?: Yes [...] to inspection; negative distended Genitourinary: Positive deferred Musc Musculoskeletal: Positive steady gait and ROM normal; [...] breathing 12/22/17 1201 <Electronically signed by Siria CASEC> Date Siria CASEC Cosigner Signature: Date (if applicable) CC: Mike Bella MD CBC-COMPLETE BLOOD CNT Collected: 12/20/2017 Status: F Source: MELVIN NO DIFF 7:46 AM [facility] REPOSITORY TYPE CODE TESTS RESULT OUT [...] MPV 9.8 Performed By: #### L100.0500 #### [facility] [address] [place], [place], [id number] RENAL PROFILE Collected: 12/20/2017 Status: F Source: ANAHEIM 7:46 AM [facility] REPOSITORY TYPE CODE TESTS RESULT OUT [...] CO2 21.0 Performed By: #### L500.3600 #### [facility] [address] [place], [address] TACROLIMUS (PROGRAF) Collected: 12/20/2017 Status: F Source: ANAHEIM 7:46 AM [facility] REPOSITORY TYPE CODE TESTS RESULT OUT OF RANGE REFERENCE UNITS LAB L3380.1100 2.0-20.0 ng/mL Normal TACROLIMUS 4.8 Result Comment: Trough (immediately following transplant) 15.0 Trough (steady state, 2 weeks or more after transplant): 3.0 - 8.0 Detection Limit = 1.0 Performed by -MS/MS technology. Performed at: - [facility] [address] [id number] Spare Parts Clerk: Renan Soares MD, Phone: [phone] Performed By: #### L3380.1000 #### [facility] (refer to report for specific site) refer to report for address and phone number CHEST WITHOUT Observed: 12/11/2017 Status: F Source: ANAHEIM CONTRAST 6:56 AM [facility] REPOSITORY [facility] Imaging Services [address] [place] [address] Chest without Contrast MR#: [id number] Acct: [id number] Name: SKYLER PINZON Rep #: [id number] : 1965 M 52 From: Claudia Chatman PCP: Mike Bella MD Status: REG CLI Study: Chest without Contrast Date of Exam: 12/11/17 Exam# [id number] Ordering Dr: Fredi Padilla DO STUDY: CT [...] CC: Fredi Padilla D.O.; Mike Bella MD Spring Clipper: Signed PULMONARY VISIT REPORT Observed: 12/10/2017 Status: F Source: ANAHEIM 7:54 AM [facility] REPOSITORY Pulmonary Medicine of [address] [place] [address] OFFICE VISIT Date of Service: 12/09/17 MR#: [id number] Acct: [id number] Name: SKYLER PINZON Rep #: [id number] : 1965 Provider: Fredi Padilla D.O. Age/Sex: 52/M Location: [facility] Status: Signed Assessment AND Plan 1. Shortness [...] x 3 days Follow Up 2 Weeks (CSM) HPI HPI Comments Details: The patient is [...] EMERGENCY DEPARTMENT Observed: 12/07/2017 Status: F Source: ANAHEIM SUMMARY 3:48 PM [facility] REPOSITORY [facility] Medical Records Department [address] [place] [address] Emergency Department Summary 12/07/17 1542 MR#: [id number] Acct: [id number] Name: SKYLER PINZON Rep #: [id number] : 1965 52 From: Ambrosio Munguia DO PCP: Mike Bella MD Status: REG ER - ER Visit Summary Date of Service: 08/07/18 Chief Complaint: Fever History of Present Illness: [...] tract infection This note was generated with Txt4 dictation software. It may contain incorrect words, [...] your Primary Care Provider. Call [facility] ([phone]) or report to the closest Emergency Room. Call 911 if necessary. 12/07/17 1548 <Electronically signed by Ambrosio Munguia DO> Date Ambrosio Munguia DO Cosigner Signature (If Indicated): Date CC: Mike Bella MD Observed: 12/07/2017 Status: F Source: ANAHEIM CULTURE, URINE 1:49 PM [facility] REPOSITORY Order Date: 12/07/17 Has pt arrived? Y Urine Culture ORGANISM 1: Hafnia alvei [place] Count >100,000 Hafnia alvei: REACTION Amoxacillin/Clavulanic Acid [...] >=320 R (NF) indicates non-formulary drug at [facility]. Approval by Infectious Disease Specialist required before non-formulary drugs may be ordered and/or dispensed. Performed By: #### M100.0650 #### [facility] [place], [address] URINALYSIS, COMPLETE Collected: 12/07/2017 Status: F Source: ANAHEIM 1:45 PM [facility] REPOSITORY Order Comment: Order Date: 12/07/17 [...] URINE SEEN Performed By: #### L400.0001 #### [facility] [address] [place], [place], [address] Observed: 12/07/2017 Status: F Source: MELVIN CULTURE, BLOOD (WB) 1:35 PM [facility] REPOSITORY No growth in 5 days. Performed By: #### M200.1000 #### [facility] [place], [place], [address] Observed: 12/07/2017 Status: F Source: MELVIN CULTURE, BLOOD (WB) 1:35 PM [facility] REPOSITORY No growth in 5 days. Performed By: #### M200.1000 #### [facility] [place], [place], [address] CBC W/DIFF, AUTOMATED Collected: 12/07/2017 Status: F Source: ANAHEIM 1:25 PM [facility] REPOSITORY TYPE CODE TESTS RESULT OUT [...] Lymph 0.96 Performed By: #### L100.0100 #### [facility] [address] [place], [address] COMPREHENSIVE METABOLIC Collected: 12/07/2017 Status: F Source: [facility] 1:25 PM [facility] REPOSITORY TYPE CODE TESTS RESULT OUT [...] GAP 7 Performed By: #### L500.4050 #### [facility] [address] [place], [place], [address] LACTIC ACID Collected: 12/07/2017 Status: F Source: MELVIN 1:25 PM [facility] REPOSITORY Order Comment: Yes/No query for Sepsis Lactate Rule Y TYPE CODE TESTS RESULT OUT OF RANGE REFERENCE UNITS LAB L503.6005 0.4-2.0 mmol/L Normal LACTIC ACID 1.0 Performed By: #### L503.6005 #### [facility] [address] [place], [address] CHEST PA AND LATERAL Observed: 12/07/2017 Status: F Source: MELVIN 1:10 PM [facility] REPOSITORY [facility] Imaging Services [address] [place] [address] Chest PA and Lateral MR#: [id number] Acct: [id number] Name: SKYLER PINZON Rep #: [id number] : 1965 M 52 From: López Wong MD PCP: Mike Bella MD Status: REG ER Study: Chest PA and Lateral Date of Exam: 12/07/17 Exam# [id number] Ordering Dr: Ambrosio Munguia DO STUDY: X-RAY [...] CC: Ambrosio Munguia DO; Mike Bella MD Spring Clipper: Signed ESTABLISHED VISIT Observed: 11/23/2017 Status: UNK Source: [facility] ([facility]PHROLOGY) 4:49 PM [facility] RE[facility] Chief Complaint [...] pt, has had outpatient CT scan (? [place]). + hoarseness Has had multiple rounds [...] Hypertension; ADRIAN = N; Verified Transmission to [facility] [address] [place] [address]; Last Updated By: Areli Brasher; 06/25/2017 4:52:58 PM Mycophenolate Mofetil 250 MG Oral Capsule; TAKE 2 CAPSULE Twice daily Requested for: 31May2017; Last Rx:[id number] Ordered Rx By: Isac Thao; Dispense: 90 Days ; #:360 Capsule; Refill: 3;For: Immunosuppression, Kidney replaced by transplant; ADRIAN = N; Verified Transmission to [address] Tacrolimus 1 MG Oral Capsule; TAKE 1 CAPSULE BY MOUTH TWICE DAILY; Therapy: 29Oct2016 to (Last Rx:29Mar2017) Requested for: 29Mar2017; Status: ACTIVE - Transmit to Pharmacy - Awaiting Verification Ordered Rx By: Sara Rao; Dispense: 0 Days ; #:60 Capsule; Refill: 5;For: Immunosuppression, Kidney replaced by transplant; ADRIAN = N; Sent To: [id number] Sulfamethoxazole-Trimethoprim 400-80 MG Oral Tablet; TAKE 1 TABLET DAILY Recorded Dispense: 30 Days ; #:30 Tablet; Refill: 11;For: Kidney replaced by transplant, Recurrent UTI (urinary tract infection); ADRIAN = N; Record; Last Updated By: Stephanie Torres; 07/06/2017 9:10:37 AM Vitals Vital Signs Recorded: 20Jjh2226 10:32AM Oymtvgbmhvh66.9 F, Oral Heart Omiw562 Jfkgjkhf004 Ehslycmkm74 Height6 ft 1 in Bizjzn381 lb 3.2 oz BMI Ctvuqjgexr14.91 BSA Calculated2.06 O2 Vnmqfwayrc24, RA Physical Exam Awake, alert, no distress [...] bedtime; Therapy: 13Aug2016 to (Evaluate:20Jun2018) Requested for: 34Ftk5805; Last Rx:00Fje6066 Ordered Mycophenolate Mofetil 250 MG Oral Capsule; [...] F Source: MELVIN NO DIFF 7:58 AM [facility] REPOSITORY TYPE CODE TESTS RESULT OUT [...] MPV 10.0 Performed By: #### L100.0500 #### [facility] [address] [place], [address] RENAL PROFILE Collected: 10/21/2017 Status: F Source: ANAHEIM 7:58 AM [facility] REPOSITORY TYPE CODE TESTS RESULT OUT [...] CO2 25.0 Performed By: #### L500.3600 #### [facility] [address] [place], [address] TACROLIMUS (PROGRAF) Collected: 10/21/2017 Status: F Source: ANAHEIM 7:58 AM [facility] REPOSITORY TYPE CODE TESTS RESULT OUT OF RANGE REFERENCE UNITS LAB L3380.1100 2.0-20.0 ng/mL Normal TACROLIMUS 6.4 Result Comment: Trough (immediately following transplant) 15.0 Trough (steady state, 2 weeks or more after transplant): 3.0 - 8.0 Detection Limit = 1.0 Performed by LC-MS/MS technology. Performed at: [facility] [id number] Spare Parts Clerk: Renan Soares MD, Phone: [phone] Performed By: #### L3380.1000 #### [facility] (refer to report for specific site) refer to report for address and phone number CHEST PA AND LATERAL Observed: 10/20/2017 Status: F Source: ANAHEIM 11:14 AM [facility] REPOSITORY [facility] Imaging Services [address] [place] [address] Chest PA and Lateral MR#: [id number] Acct: [id number] Name: SKYLER PINZON Rep #: [id number] : 1965 M 52 From: Renato Lawson DO PCP: Mike Bella MD Status: REG CLI Study: Chest PA and Lateral Date of Exam: 10/20/17 Exam# [id number] Ordering Dr: Mike Bella MD STUDY: X-RAY [...] Renato Lawson DO at 18:13 EDT Tel [phone], Service support , CC: Mike Bella MD Spring Clipper: Signed 12 LEAD ELECTROCARDIOGRAM Observed: 10/18/2017 Status: F Source: ANAHEIM 8:37 AM [facility] REPOSITORY [facility] Cardiovascular Services [address] [facility] [place] [address] 12 Lead EKG 09/29/17 0006 MR#: [id number] Acct: [id number] Name: SKYLER PINZON Rep #: [id number] : 1965 52 From: Dylan Reid MD [...] Normal ECG Confirmed by DYLAN REID ([id number]), staff editor IRAM CONKLIN ([id number]) on 10/11/2017 5:50:29 PM Referred By: SHAWANDA Confirmed By:DYLAN REID 10/11/17 1750 Date Dylan Reid MD CC: Liam Pelayo MD; Mike Bella MD Signed EMERGENCY DEPARTMENT Observed: 09/29/2017 Status: F Source: ANAHEIM SUMMARY 2:03 AM [facility] REPOSITORY [facility] Medical Records Department [address] [place] [address] Emergency Department Summary 09/29/17 020 MR#: [id number] Acct: [id number] Name: SKYLER PINZON Rep #: [id number] : 1965 52 From: Liam Pelayo MD [...] Chronic cough This note was generated with Txt4 dictation software. It may contain incorrect words, [...] your Primary Care Provider. Call [facility] ([phone]) or report to the closest Emergency Room. Call 911 if necessary. 09/29/17202 <Electronically signed by Liam Pelayo MD> Date Liam Pelayo MD Cosigner Signature (If Indicated): Date CC: Mike Bella MD DISCHARGE INSTRUCTION Observed: 09/29/2017 Status: F Source: MELVIN 2:03 AM [facility] REPOSITORY [facility] Medical Records Department [address] [place] [address] Discharge Instruction 09/29/17202 MR#: [id number] Acct: [id number] Name: SKYLER PINZON Rep #: [id number] : 1965 52 From: Liam Pelayo MD [...] your Primary Care Provider. Call [facility] ([phone]) or report to the closest Emergency Room. Call 911 if necessary. 09/29/17202 <Electronically signed by Liam Pelayo MD> Date Liam Pelayo MD Cosigner Signature (If Indicated): Date CC: Mike Bella MD CBC W/DIFF, AUTOMATED Collected: 09/29/2017 Status: F Source: MELVIN 12:10 AM [facility] REPOSITORY TYPE CODE TESTS RESULT OUT OF [...] Lymph 1.00 Performed By: #### L100.0100 #### [facility] [address] [place], [place], [address] BASIC METABOLIC Collected: 09/29/2017 Status: F Source: MELVIN PROFILE (BMP) 12:10 AM [facility] REPOSITORY TYPE CODE TESTS RESULT OUT [...] 8 Performed By: #### L500.2500, L501.4010 #### [facility] [address] [facility]. [place], [place], [address] TROPONIN-I Collected: 09/29/2017 Status: F Source: ANAHEIM 12:10 AM [facility] REPOSITORY TYPE CODE TESTS RESULT OUT OF RANGE REFERENCE UNITS LAB L501.4010 <0.045 ng/mL Normal < 0.015 TROPONIN-I Result Comment: TROPONIN-I EXPECTED VALUES <0.045 Negative 0.045 - 0.590 Consistent with Cardiac Damage > OR = 0.600 Critical Value Not every elevated troponin is indicative of NC. These values should be used with clinical judgement in examining the patient's clinical picture for diagnosis. To establish a diagnosis of NC versus myocardial injury, there must be a demonstrated rise and/or fall in the troponin values, in addition to ischemic symptoms, EKG changes, new regional wall motion abnormality, and/or angiographical evidence. PLEASE NOTE: REFERENCE RANGES EDITED 17 Performed By: #### L500.2500, L501.4010 #### [facility] [address] [facility] [place], [address] CHEST PA AND LATERAL Observed: 09/28/2017 Status: F Source: MELVIN 11:53 PM [facility] REPOSITORY [facility] Imaging Services [address] [place] [address] Chest PA and Lateral MR#: [id number] Acct: [id number] Name: SKYLER PINZON Rep #: [id number] : 1965 M 52 From: Renan Marin MD PCP: Mike Bella MD Status: REG ER Study: Chest PA and Lateral Date of Exam: 09/29/17 Exam# [id number] Ordering Dr: Liam Pelayo MD STUDY: X-RAY [...] CC: Liam Pelayo MD; Mike Bella MD Spring Clipper: Signed CHEST PA AND LATERAL Observed: 09/23/2017 Status: F Source: MELVIN 3:51 PM [facility] REPOSITORY [facility] Imaging Services [address] [place] [address] Chest PA and Lateral MR#: [id number] Acct: [id number] Name: SKYLER PINZON Rep #: [id number] : 1965 M 52 From: Hans Wong MD PCP: Mike Bella MD Status: REG CLI Study: Chest PA and Lateral Date of Exam: 09/23/17 Exam# [id number] Ordering Dr: Mike Bella MD STUDY: X-RAY [...] Service support , CC: Mike Bella MD Spring Clipper: Signed CBC-COMPLETE BLOOD CNT Collected: 09/20/2017 Status: F Source: MELVIN NO DIFF 8:01 AM [facility] REPOSITORY TYPE CODE TESTS RESULT OUT [...] MPV 10.6 Performed By: #### L100.0500 #### [facility] [address] [facility]. [place], [place], [address] RENAL PROFILE Collected: 09/20/2017 Status: F Source: ANAHEIM 8:01 AM [facility] REPOSITORY TYPE CODE TESTS RESULT OUT [...] CO2 25.0 Performed By: #### L500.3600 #### [facility] [address] [facility] [place], [address] TACROLIMUS (PROGRAF) Collected: 09/20/2017 Status: F Source: MELVIN 8:01 AM [facility] REPOSITORY TYPE CODE TESTS RESULT OUT OF RANGE REFERENCE UNITS LAB L3380.1100 2.0-20.0 ng/mL Normal TACROLIMUS 9.3 Result Comment: Trough (immediately following transplant) 15.0 Trough (steady state, 2 weeks or more after transplant): 3.0 - 8.0 Detection Limit = 1.0 Performed by LC-MS/MS technology. Performed at: - [facility] [id number] Spare Parts Clerk: Renan Soares MD, Phone: [phone] Performed By: #### L3380.1000 #### [facility] (refer to report for specific site) refer to report for address and phone number 12 LEAD ELECTROCARDIOGRAM Observed: 09/14/2017 Status: F Source: MELVIN 1:32 PM [facility] REPOSITORY [facility] Cardiovascular Services [address] [place] [address] 12 Lead EKG 09/10/17 2308 MR#: [id number] Acct: [id number] Name: SKYLER PINZON Rep #: [id number] : 1965 52 From: Rolf Mon MD Attending Dr: Teresa Thrasher Status: DIS IN Ordering Dr: Vania Sullivan MD Date: 09/10/17 [place] [facility] Sex: M C Admitted: 09/11/17 Test Reason : Blood Pressure : / mmHG Vent. Rate : 098 BPM Atrial Rate : 098 BPM P-R Int : 128 ms QRS Dur : 084 ms QT Int : 362 ms P-R-T Axes : 042 002 050 degrees QTc Int : 462 ms Normal sinus rhythm Normal ECG Confirmed by ROLF MON MD ([id number]), staff editor IRAM CONKLIN ([id number]) on 09/14/2017 1:32:09 PM Referred By: Ha Lyle Confirmed By:ROLF MON MD 09/14/17 1332 Date Rolf Mon MD CC: Teresa Thrasher; Vania Sullivan MD; Mike Bella MD Signed CONSULTATION Observed: 09/12/2017 Status: F Source: ANAHEIM 6:34 AM [facility] REPOSITORY [facility] Medical Records Department [address] [place] [address] Consultation 09/11/17 0603 MR#: [id number] Acct: [id number] Name: SKYLER PINZON Rep #: [id number] : 1965 52 From: Fredi Padilla DO PCP: Mike Bella MD Status: DIS IN Y Location: [facility] [id number] Reason for Consult Date of Consultation: 09/11/17 [...] my perspective. This note was generated with Txt4 dictation software. It may contain incorrect words, spelling, and punctuation that were not noted in checking the note before signing. Code Visit Inpatient Jolie AND M: 95647 Init Hosp L3 09/12/17 0634 <Electronically signed by Fredi Padilla DO> Date Fredi Padilla DO Cosigner Signature (if applicable): Date CC: Fredi Padilla D.O.; Mike Bella MD Signed DISCHARGE SUMMARY Observed: 09/11/2017 Status: F Source: ANAHEIM 2:17 PM [facility] REPOSITORY [facility] Medical Records Department [address] [place] [address] Discharge Summary 09/11/17 1253 MR#: [id number] Acct: [id number] Name: SKYLER PINZON Rep #: [id number] : 1965 52 From: Bharti REGAN PCP: Mike Bella MD Status: ADM IN Y Location[place] [facility] [id number] <Bharti Aly - Last Filed: 09/11/17 13:08> [...] spent on discharge:: 25 Code Visit OBSV E AND M: 52006 Observ/hosp same date L1 09/11/17 1308 <Electronically signed by Bharti REGAN> Date Bharti REGAN 09/11/17 1417<Electronically signed by Teresa Thrasher MD> Cosigner Signature (if applicable): Date Teresa Thrasher MD CC: JASS Aly; Teresa Thrasher; Mike Bella MD Signed DISCHARGE INSTRUCTION Observed: 09/11/2017 Status: F Source: MELVIN 12:53 PM [facility] REPOSITORY [facility] Medical Records Department [address] [place] [address] Instructions for Home/Discharge Instructions 09/11/17 1251 MR#: [id number] Acct: [id number] Name: SKYLER PINZON Rep #: [id number] : 1965 52 From: Bharti REGAN PCP: Mike Bella MD Status: ADM IN [...] 1253 <Electronically signed by Bharti REGAN> Date Bhatri REGAN CC: Fredi Padilla D.O.; Mike Bella MD CHEST WITHOUT Observed: 09/11/2017 Status: F Source: MELVIN CONTRAST 7:25 AM [facility] REPOSITORY [facility] Imaging Services [address] [place] [address] Chest without Contrast MR#: [id number] Acct: [id number] Name: SKYLER PINZON Rep #: [id number] : 1965 M 52 From: Teodoro Patterson PCP: Mike Bella MD Status: ADM IN Study: Chest without Contrast Date of Exam: 09/11/17 Exam# [id number] Ordering Dr: Fredi Padilla DO STUDY: CT [...] CC: Fredi Padilla D.O.; Mike Bella MD Spring Clipper: Signed BASIC METABOLIC Collected: 09/11/2017 Status: F Source: MELVIN PROFILE (BMP) 6:40 AM [facility] REPOSITORY TYPE CODE TESTS RESULT OUT [...] GAP 8 Performed By: #### L500.2500 #### [facility] [address] [place], [address] CBC W/DIFF, AUTOMATED Collected: 09/11/2017 Status: F Source: ANAHEIM 6:40 AM [facility] REPOSITORY TYPE CODE TESTS RESULT OUT [...] Lymph 1.15 Performed By: #### L100.0100 #### [facility] [address] [facility] [place], [address] EMERGENCY DEPARTMENT Observed: 09/11/2017 Status: F Source: ANAHEIM SUMMARY 1:43 AM [facility] REPOSITORY [facility] Medical Records Department [address] [place] [address] Emergency Department Summary 09/11/17 0005 MR#: [id number] Acct: [id number] Name: SKYLER PINZON Rep #: [id number] : 1965 52 From: Vania Sullivan MD [...] renal transplant This note was generated with Virtual Iron Softwareation software. It may contain incorrect words, spelling, [...] your Primary Care Provider. Call [facility] ([phone]) or report to the closest Emergency Room. Call 911 if necessary. 09/11/17 0143 <Electronically signed by Vania Sullivan MD> Date Vania Sullivan MD Cosigner Signature (If Indicated): Date CC: Mike Bella MD HISTORY AND PHYSICAL Observed: 09/11/2017 Status: F Source: ANAHEIM EXAM 12:52 AM [facility] REPOSITORY [facility] Medical Records Department [address] [place] [address] History and Physical 09/11/17 0008 MR#: [id number] Acct: [id number] Name: SKYLER PINZON Rep #: [id number] : 1965 52 From: Jesica Russo PCP: [...] with nodular components who presents to the [facility] ED on 09/11/17 with history of recently [...] and recent PE who presents to the [facility] ED on 09/11/17 with history of recently [...] Face Time: 16 minutes. Code Visit Inpatient GLO: 50299 Init Hosp L3 Procedures: 02610 Advncd Care Plan 30 Min 09/11/17 0052 <Electronically signed by Jesica Russo > Date Jesica Russo Cosigner Signature: Date (if applicable) CC: Jesica Russo; Mike Bella MD Signed Observed: 09/11/2017 Status: F Source: ANAHEIM RESPIRATORY PANEL 12:50 AM [facility] MOLECULAR REPOSITORY RP PANEL Normal Reference [...] HUMAN META Performed By: #### M100.638 #### [facility] [address] [place], [address] MAGNESIUM Collected: 09/11/2017 Status: F Source: MELVIN 12:00 AM [facility] REPOSITORY TYPE CODE TESTS RESULT OUT OF RANGE REFERENCE UNITS LAB L501.5200 1.6-2.6 mg/dL Normal MG 1.7 Performed By: #### L501.5200 #### [facility] [address] [place], [address] Observed: 09/10/2017 Status: F Source: MELVIN CULTURE, BLOOD (WB) 11:25 PM [facility] REPOSITORY BC No growth in 5 days. Performed By: #### M200.1000 #### [facility] [facility] [address] [place], [address] CBC W/DIFF, AUTOMATED Collected: 09/10/2017 Status: F Source: MELVIN 11:10 PM [facility] REPOSITORY TYPE CODE TESTS RESULT OUT [...] Lymph 0.75 Performed By: #### L100.0100 #### [facility] [address] [place], [place], [address] BASIC METABOLIC Collected: 09/10/2017 Status: F Source: MELVIN PROFILE (BMP) 11:10 PM [facility] REPOSITORY TYPE CODE TESTS RESULT OUT [...] GAP 7 Performed By: #### L500.2500 #### [facility] [address] [place], [address] URINALYSIS, COMPLETE Collected: 09/10/2017 Status: F Source: MELVIN 11:10 PM [facility] REPOSITORY Order Comment: Order Date: 09/10/17 COLOR OF URINE MAY AFFECT DIPSTICK RESULTS. How was Urine Obtained? GASTROENTEROLOGY NURSE PRACTITIONER TO SPECIFY TYPE CODE TESTS RESULT OUT [...] URINE SEEN Performed By: #### L400.0001 #### [facility] [address] [place] [address], [id number] LACTIC ACID Collected: 09/10/2017 Status: F Source: MELVIN 11:10 PM [facility] REPOSITORY Order Comment: Yes/No query for Sepsis Lactate Rule Y TYPE CODE TESTS RESULT OUT OF RANGE REFERENCE UNITS LAB L503.6005 0.4-2.0 mmol/L Normal LACTIC ACID 0.9 Performed By: #### L503.6005 #### [facility]. [facility] [id number] Observed: 09/10/2017 Status: F Source: MELVIN CULTURE, BLOOD (WB) 11:10 PM [facility] REPOSITORY BC No growth in 5 days. Performed By: #### M200.1000 #### [facility] [address] [facility]. [place], [place], [id number] CHEST 1 VIEW Observed: 09/10/2017 Status: F Source: MELVIN (PORTABLE) 10:47 PM [facility] REPOSITORY [facility] Imaging Services [address] [place] [address] Chest 1 View (Portable) MR#: [id number] Acct: [id number] Name: SKYLER PINZON Rep #: [id number] : 1965 M 52 From: López Wong MD PCP: Mike Bella MD Status: REG ER Study: Chest 1 View (Portable) Date of Exam: 09/10/17 Exam# [id number] Ordering Dr: Vania Sullivan MD STUDY: X-RAY [...] CC: Vania Sullivan MD; Mike Bella MD Spring Clipper: Signed CHEST PA AND LATERAL Observed: 09/09/2017 Status: F Source: MELVIN 12:03 PM [facility] REPOSITORY [facility] Imaging Services [address] [place] [address] Chest PA and Lateral MR#: [id number] Acct: [id number] Name: SKYLER PINZON Rep #: [id number] : 1965 M 52 From: López Wong MD PCP: Mike Bella MD Status: REG CLI Study: Chest PA and Lateral Date of Exam: 09/09/17 Exam# [id number] Ordering Dr: Ha Lyle MD STUDY: X-RAY [...] CC: Ha Lyle MD; Mike Bella MD Spring Clipper: Signed 12 LEAD ELECTROCARDIOGRAM Observed: 08/22/2017 Status: F Source: ANAHEIM 8:55 PM [facility] REPOSITORY [facility] Cardiovascular Services [facility] [place] [address] 12 Lead EKG 08/17/17 2344 MR#: [id number] Acct: [id number] Name: SKYLER PINZON Rep #: [id number] : 1965 52 From: Dylan Reid MD Attending Dr: Ambrosio Solis DO Status: DIS PILY Ordering Dr: Sally Simon MD Date: 08/18/17 Location: 3 Sex: M C Admitted: 08/18/17 Test Reason : CP Blood Pressure : / mmHG Vent. Rate : 095 BPM Atrial Rate : 095 BPM P-R Int : 128 ms QRS Dur : 084 ms QT Int : 366 ms P-R-T Axes : 062 022 057 degrees QTc Int : 459 ms Normal sinus rhythm with sinus arrhythmia Normal ECG Confirmed by DYLAN REID ([id number]), staff editor IRAM CONKLIN ([id number]) on 08/19/2017 2:15:50 PM Referred By: PAUL Confirmed By:DYLAN REID 08/19/17 1415 Date Dylan Reid MD CC: Ambrosio Solis DO; Sally Simon MD; Mike Bella MD Signed CBC W/DIFF, AUTOMATED Collected: 08/20/2017 Status: F Source: MELVIN 8:05 AM [facility] REPOSITORY Order Comment: TAC, CBC, AND RENAL TO DR. RAO CBC TO DR. SUAREZ RENAL AND CULTURE TO DR. CRENSHAW ([facility]) CANCELLED DUE TO RENAL TYPE CODE TESTS [...] Lymph 0.83 Performed By: #### L100.0100 #### [facility] [address] [place], [place], [address] RENAL PROFILE Collected: 08/20/2017 Status: F Source: ANAHEIM 8:05 AM [facility] REPOSITORY Order Comment: TAC, CBC, AND RENAL TO DR. RAO CBC TO DR. SUAREZ RENAL AND CULTURE TO DR. CRENSHAW ([facility]) CANCELLED DUE TO RENAL TYPE CODE TESTS [...] CO2 24.0 Performed By: #### L500.3600 #### [facility] [address] [facility]. [place], [place], [address] Observed: 08/20/2017 Status: F Source: ANAHEIM CULTURE, URINE 8:05 AM [facility] REPOSITORY TAC, CBC, AND RENAL TO DR. RAO CBC TO DR. SUAREZ RENAL AND CULTURE TO DR. CRENSHAW ([facility]) CANCELLED DUE TO RENAL Urine Culture ORGANISM 1: Enterococcus faecium [place] Count 80,000-100,000 Enterococcus faecium: REACTION Ampicillin $ 16 R Benzylpenicillin NF 32 R Ciprofloxacin $ >=8 R Gentamicin SYN-S S Levofloxacin $ >=8 R Linezolid $$$$ 2 S Nitrofurantoin $ 32 S Streptomycin $ SYN-S S Tetracycline NF >=16 R Vancomycin $ <=0.5 S (NF) indicates non-formulary drug at [facility]. Approval by Infectious Disease Specialist required before non-formulary drugs may be ordered and/or dispensed. * CLSI guidelines does not recommend testing of cephalosporins. This interpretation is deduced from Beta-lactam/penicillin results. Performed By: #### M100.0650 #### [facility] [address] [facility] [place], [address] TACROLIMUS (PROGRAF) Collected: 08/20/2017 Status: F Source: ANAHEIM 8:05 AM [facility] REPOSITORY Order Comment: TAC, CBC, AND RENAL TO DR. RAO CBC TO DR. SUAREZ RENAL AND CULTURE TO DR. CRENSHAW ([facility]) CANCELLED DUE TO RENAL TYPE CODE TESTS RESULT OUT OF RANGE REFERENCE UNITS LAB L3380.1100 2.0-20.0 ng/mL Normal TACROLIMUS 5.4 Result Comment: Trough (immediately following transplant) 15.0 Trough (steady state, 2 weeks or more after transplant): 3.0 - 8.0 Detection Limit = 1.0 Performed by LC-MS/MS technology. Performed at: [facility] [id number] Spare Parts Clerk: Renan Soares MD, Phone: [phone] Performed By: #### L3380.1000 #### [facility] (refer to report for specific site) refer to report for address and phone number DISCHARGE SUMMARY Observed: 08/19/2017 Status: F Source: MELVIN 6:38 AM [facility] REPOSITORY [facility] Medical Records Department [address] [facility] [place] [address] Discharge Summary 07/18/17 0958 MR#: [id number] Acct: [id number] Name: SKYLER PINZON Rep #: [id number] : 1965 52 From: Bharti REGAN PCP: Mike Bella MD Status: DIS IN Y [place] [facility] ADDENDUM by Keli Metzger on 08/19/17 at [...] (Choose all that apply): None applicable <Adilene Metzgererine - Last Filed: 07/26/17 19:17> Discharge Date [...] have been written. Inpatient E AND M: 22253 Disch Hosp 07/18/17 1004 <Electronically signed by Bharti CASEC> Date Bharti CASEC 07/26/17 1917<Electronically signed by Adilene Metzger DO> Cosigner Signature (if applicable): Date Adilene Metzger DO CC: JASS Aly; Keli Metzger; Mike Bella MD Signed DISCHARGE SUMMARY Observed: 08/18/2017 Status: F Source: ANAHEIM 12:11 PM [facility] REPOSITORY [facility] Medical Records Department [address] [place] [address] Discharge Summary 08/18/17 1208 MR#: [id number] Acct: [id number] Name: SKYLER PINZON Rep #: [id number] : 1965 52 From: Ambrosio Solis DO PCP: Mike Bella MD Status: ADM PILY Y Location: [place] [address] Discharge Date and Diagnosis - Problem List [...] applicable Code Visit OBSV E AND M: 75421 Observation care discharge 08/18/17 1211 <Electronically signed by Ambrosio Solis DO> Date Ambrosio Solis DO Cosigner Signature (if applicable): Date CC: Ambrosio Solis DO; Mike Bella MD Signed DISCHARGE INSTRUCTION Observed: 08/18/2017 Status: F Source: MELVIN 12:07 PM [facility] REPOSITORY [facility] Medical Records Department [address] [place] [address] Instructions for Home/Discharge Instructions 08/18/17 1206 MR#: [id number] Acct: [id number] Name: SKYLER PINZON Rep #: [id number] : 1965 52 From: Ambrosio Solis DO [...] 2 Weeks Proposed Discharge Date: 08/18/17 08/18/17 1207 <Electronically signed by Ambrosio Solis DO> Date Ambrosio Solis DO CC: Mike Bella MD Observed: 08/18/2017 Status: F Source: ANAHEIM RESPIRATORY PANEL 5:05 AM [facility] MOLECULAR REPOSITORY RP PANEL ADENOVIRUS Not [...] acid amplification Performed By: #### M100.638 #### [facility] [address] [place] [address], [address] TROPONIN-I Collected: 08/18/2017 Status: F Source: ANAHEIM 5:00 AM [facility] REPOSITORY Order Comment: 'TROP' Serial specimen #1, #2, #3, or #4: 1 TYPE CODE TESTS RESULT OUT OF RANGE REFERENCE UNITS LAB L501.4010 <0.06 ng/mL Normal < 0.02 TROPONIN-I Result Comment: TROPONIN-I EXPECTED VALUES <0.05 NEGATIVE 0.06 - 0.59 AT RISK OF NC > OR = 0.60 SUGGEST NC Performed By: #### L501.4010 #### [facility] [address] [place] [address], [address] EMERGENCY DEPARTMENT Observed: 08/18/2017 Status: F Source: ANAHEIM SUMMARY 4:40 AM [facility] REPOSITORY [facility] Medical Records Department [address] [place] [address] Emergency Department Summary 08/18/17 0003 MR#: [id number] Acct: [id number] Name: SKYLER PINZON Rep #: [id number] : 1965 52 From: Sally Simon MD [...] chest pain and remained mildly tachycardic on tobacco stripper hand. He received additional morphine without improvement. Given [...] pain, pleurisy This note was generated with Txt4 dictation software. It may contain incorrect words, spelling, and punctuation that were not noted in review of the chart prior to signing ED Disposition - Plan for ED Patient: Disposition: Acute Care Hospital [facility] Chief Complaint: Chest Pain What to do if you have Problems For any increased pain, shortness of breath, bleeding, nausea or vomiting, chest pain, or any unexpected problems, contact your Primary Care Provider. Call [facility] ([phone]) or report to the closest Emergency Room. Call 911 if necessary. 08/18/17 0440 <Electronically signed by Sally Simon MD> Date Sally Simon MD Cosigner Signature (If Indicated): Date CC: Mike Bella MD HISTORY AND PHYSICAL Observed: 08/18/2017 Status: F Source: ANAHEIM EXAM 4:06 AM [facility] REPOSITORY [facility] Medical Records Department [address] [place] [address] History and Physical 08/18/17 0351 MR#: [id number] Acct: [id number] Name: SKYLER PINZON Rep #: [id number] : 1965 52 From: Luis Armando Chapman DO PCP: Mike Bella MD Status: ADM PILY Y Location: [place] [address] Problem List (1) Right-sided chest pain Status: Acute (2) Nonproductive cough Status: Acute History of Present Illness Date of Admission: 08/18/17 Chief Complaint: Nonproductive cough, right sided chest pain The patient is a 52 year old M who was seen in the emergency room at [facility] after being brought in by his [...] time Code Visit OBSV E AND M: 29304 Initial observation care L3 08/18/17 0406 <Electronically signed by Luis Armando Chapman DO> Date Luis Armando Chapman DO Cosigner Signature: Date (if applicable) CC: Luis Armando Chapman DO; Mike Bella MD Signed URINALYSIS, COMPLETE Collected: 08/18/2017 Status: F Source: MELVIN 1:20 AM [facility] REPOSITORY Order Comment: COLOR OF URINE [...] 0 SEEN Performed By: #### L400.0001 #### [facility] [address] [place], [place], [address] Observed: 08/18/2017 Status: F Source: ANAHEIM CULTURE, URINE 1:20 AM [facility] REPOSITORY Has pt arrived? Y Urine Culture ORGANISM 1: Mixed Gram Positive Organisms [place] Count 11,000-25,000 MIX CULTURE Mixed contaminants. Submit a new specimen if indicated. Performed By: #### M100.0650 #### [facility] [address] [place], [place], [address] CHEST PA AND LATERAL Observed: 08/18/2017 Status: F Source: MELVIN 12:04 AM [facility] REPOSITORY [facility] Imaging Services [address] [place] [address] Chest PA and Lateral MR#: [id number] Acct: [id number] Name: SKYLER PINZON Rep #: [id number] : 1965 M 52 From: Iram Barr MD PCP: Mike Bella MD Status: REG ER Study: Chest PA and Lateral Date of Exam: 08/18/17 Exam# [id number] Ordering Dr: Sally Simon MD XR Chest [...] CC: Sally Simon MD; Mike Bella MD Spring Clipper: Signed CBC W/DIFF, AUTOMATED Collected: 08/17/2017 Status: F Source: ANAHEIM 11:40 PM [facility] REPOSITORY TYPE CODE TESTS RESULT OUT [...] Lymph 1.10 Performed By: #### L100.0100 #### [facility] [address] [place], [place], [address] PROTHROMBIN TIME W/INR Collected: 08/17/2017 Status: F Source: ANAHEIM 11:40 PM [facility] REPOSITORY TYPE CODE TESTS RESULT OUT OF RANGE REFERENCE UNITS LAB L300.4150 11.7-14.9 SECONDS High PROTIME 16.4 LAB L300.4200 Normal INR 1.3 Performed By: #### L300.3900, L300.4310 #### [facility] [address] [place], [place], [address] PARTIAL THROMBOPLAST Collected: 08/17/2017 Status: F Source: [facility] 11:40 PM [facility] REPOSITORY TYPE CODE TESTS RESULT OUT OF RANGE REFERENCE UNITS LAB L300.4310 24.1-36.2 Seconds Normal PTT 33.6 Performed By: #### L300.3900, L300.4310 #### [facility] [address] [place], [address] COMPREHENSIVE METABOLIC Collected: 08/17/2017 Status: F Source: [facility] 11:40 PM [facility] REPOSITORY Order Comment: 'TROP' Serial specimen [...] Performed By: #### L500.4050, L501.2450, L501.4010 #### [facility] [address] [place], [address] LIPASE Collected: 08/17/2017 Status: F Source: ANAHEIM 11:40 PM [facility] REPOSITORY Order Comment: 'TROP' Serial specimen #1, #2, #3, or #4: 1 TYPE CODE TESTS RESULT OUT OF REFERENCE UNITS RANGE LAB L501.2450 73-393 U/L High LIPASE 396 Performed By: #### L500.4050, L501.2450, L501.4010 #### [facility] [address] [place] [place], [address] TROPONIN-I Collected: 08/17/2017 Status: F Source: ANAHEIM 11:40 PM [facility] REPOSITORY Order Comment: 'TROP' Serial specimen #1, #2, #3, or #4: 1 TYPE CODE TESTS RESULT OUT OF RANGE REFERENCE UNITS LAB L501.4010 <0.06 ng/mL Normal < 0.02 TROPONIN-I Result Comment: TROPONIN-I EXPECTED VALUES <0.05 NEGATIVE 0.06 - 0.59 AT RISK OF NC > OR = 0.60 SUGGEST NC Performed By: #### L500.4050, L501.2450, L501.4010 #### [facility] [address] [place], [address] 12 LEAD ELECTROCARDIOGRAM Observed: 07/29/2017 Status: F Source: ANAHEIM 3:19 PM [facility] REPOSITORY [facility] Cardiovascular Services [address] [place] [address] 12 Lead EKG 07/28/17 0143 MR#: [id number] Acct: [id number] Name: SKYLER PINZON Rep #: [id number] : 1965 52 From: Rolf Mon MD [...] ECG Confirmed by ROLF MON MD ([id number]), staff editor IRAM CONKLIN ([id number]) on 07/29/2017 3:19:34 PM Referred By: SARA RAO Confirmed By:ROLF MON MD 07/29/17 1519 Date Rofl Mon MD CC: Jose Armando Mosqueda MD; Mike Bella MD Signed EMERGENCY DEPARTMENT Observed: 07/28/2017 Status: F Source: ANAHEIM SUMMARY 4:05 AM [facility] REPOSITORY [facility] Medical Records Department [address] [facility] [place] [address] Emergency Department Summary 07/28/17 0303 MR#: [id number] Acct: [id number] Name: SKYLER PINZON Rep #: [id number] : 1965 52 From: Jose Armando Mosqueda [...] chest pain This note was generated with Virtual Iron Softwareation software. It may contain incorrect words, spelling, [...] problems, contact your Primary Care Provider. Call [facility] ([phone]) or report to the closest Emergency Room. Call 911 if necessary. 07/28/17 0405 <Electronically signed by Jose Armando Mosqueda MD> Date Jose Armando Mosqueda MD Cosigner Signature (If Indicated): Date CC: Mike Bella MD DISCHARGE INSTRUCTION Observed: 07/28/2017 Status: F Source: ANAHEIM 4:05 AM [facility] REPOSITORY [facility] Medical Records Department [address] [place] [address] Discharge Instruction 07/28/17 0305 MR#: [id number] Acct: [id number] Name: SKYLER PINZON Rep #: [id number] : 1965 52 From: Jose Armando Mosqueda MD PCP: Mike Bella MD Status: [facility] ED Disposition - Plan for ED Patient: Disposition: Home or Assisted Living Chief Complaint: Chest Pain Instructions: Pulmonary Embolism Referrals: Mike Bella MD [Primary Care Provider] - What to do if you have Problems For any increased pain, shortness of breath, bleeding, nausea or vomiting, chest pain, or any unexpected problems, contact your Primary Care Provider. Call [facility] ([phone]) or report to the closest Emergency Room. Call 911 if necessary. 07/28/17 0405 <Electronically signed by Jose Armando Mosqueda MD> Date Jose Armando Mosqueda MD Cosigner Signature (If Indicated): Date CC: Mike Bella MD CBC W/DIFF, AUTOMATED Collected: 07/28/2017 Status: C Source: ANAHEIM 2:25 AM [facility] REPOSITORY TYPE CODE TESTS RESULT OUT [...] 1204 PATH REV previously reported as: August carmen Performed By: #### L100.0100 #### [facility] [address] [place], [address] BASIC METABOLIC Collected: 07/28/2017 Status: F Source: ANAHEIM PROFILE (BMP) 2:25 AM [facility] REPOSITORY Order Comment: 'TROP' Serial specimen [...] 9 Performed By: #### L500.2500, L501.4010 #### [facility] [address] [place], [address] TROPONIN-I Collected: 07/28/2017 Status: F Source: ANAHEIM 2:25 AM [facility] REPOSITORY Order Comment: 'TROP' Serial specimen #1, #2, #3, or #4: 1 TYPE CODE TESTS RESULT OUT OF RANGE REFERENCE UNITS LAB L501.4010 <0.06 ng/mL Normal < 0.02 TROPONIN-I Result Comment: TROPONIN-I EXPECTED VALUES <0.05 NEGATIVE 0.06 - 0.59 AT RISK OF NC > OR = 0.60 SUGGEST NC Performed By: #### L500.2500, L501.4010 #### [facility] [address] [place], [address] CHEST 1 VIEW Observed: 07/28/2017 Status: F Source: ANAHEIM (PORTABLE) 2:08 AM [facility] REPOSITORY [facility] Imaging Services [address] [facility] [place] [address] Chest 1 View (Portable) MR#: [id number] Acct: [id number] Name: SKYLER PINZON Rep #: [id number] : 1965 M 52 From: Peter Gamez PCP: Mike Bella MD Status: REG ER Study: Chest 1 View (Portable) Date of Exam: 07/28/17 Exam# [id number] Ordering Dr: Jose Armando Mosqueda MD STUDY: [...] Jose Armando Mosqueda MD; Mike Bella MD Spring Clipper: Signed 12 LEAD ELECTROCARDIOGRAM Observed: 07/23/2017 Status: F Source: ANAHEIM 1:47 PM [facility] REPOSITORY [facility] Cardiovascular Services [address] [place] [address] 12 Lead EKG 07/20/172054 MR#: [id number] Acct: [id number] Name: SKYELR PINZON Rep #: [id number] : 1965 52 From: Rolf Mon MD Attending Dr: Cleopatra Rey MD Status: DIS PILY Ordering Dr: Brooks Fallon DO Date: 07/20/17 Location: [facility] Sex: M C Admitted: 07/21/17 Test Reason : CP Blood Pressure : / mmHG Vent. Rate : 111 BPM Atrial Rate : 111 BPM P-R Int : 122 ms QRS Dur : 086 ms QT Int : 344 ms P-R-T Axes : 045 008 039 degrees QTc Int : 467 ms Sinus tachycardia Inferior infarct , age undetermined Abnormal ECG Confirmed by ROLF MON MD ([id number]), staff editor IRAM CONKILN ([id number]) on 07/23/2017 1:46:52 PM Referred By: GIA Confirmed By:ROLF MON MD 07/23/17 1346 Date Rolf Mon MD CC: Mike Bella MD; Brooks Fallon DO Signed 12 LEAD ELECTROCARDIOGRAM Observed: 07/23/2017 Status: F Source: MELVIN 1:46 PM [facility] REPOSITORY [facility] Cardiovascular Services [address] [place] [address] 12 Lead EKG 07/21/17 0020 MR#: [id number] Acct: [id number] Name: SKYLER PINZON Rep #: [id number] : 1965 52 From: Rolf Mon MD Attending Dr: Cleopatra Rey MD Status: DIS PILY Ordering Dr: Brooks Fallon DO Date: 07/20/17 Location: [facility] Sex: M C Admitted: 07/21/17 Test Reason : REPEAT Blood Pressure : / mmHG Vent. Rate : 090 BPM Atrial Rate : 090 BPM P-R Int : 128 ms QRS Dur : 078 ms QT Int : 378 ms P-R-T Axes : 063 013 046 degrees QTc Int : 462 ms Normal sinus rhythm Normal ECG Confirmed by SUSAN MORENO, ROLF ([id number]), staff editor IRAM CONKLIN ([id number]) on 07/23/2017 1:46:08 PM Referred By: GIA Confirmed By:ROLF MON MD 07/23/17 1346 Date Rolf Mon MD CC: Mike Bella MD; Brooks Fallon DO Signed DISCHARGE SUMMARY Observed: 07/22/2017 Status: F Source: MELVIN 4:55 PM [facility] REPOSITORY [facility] Medical Records Department [address] [place] [address] Discharge Summary 07/21/17 1236 MR#: [id number] Acct: [id number] Name: SKYLER PINZON Rep #: [id number] : 1965 52 From: Bharti REGAN PCP: Mike Bella MD Status: DIS PILY Y Location: [place] [address] ADDENDUM by Cleopatra Rey MD on 07/22/17 at 1655 Code Visit OBSLara CODY: 65039 Observ/hosp same date L3 07/22/17 1655 <Electronically signed by Cleopatra Rey MD> Date Cleopatra Rey MD cc: JASS Aly; Cleopatra Rey MD; Mike Bella MD * Signed Discharge [...] Indicated 07/21/17 1250 <Electronically signed by Bharti REGAN> Date Bharti REGAN 07/21/17 1253<Electronically signed by Cleopatra Rey MD> Cosigner Signature (if applicable): Date Cleopatra Rey MD CC: ACCESS SERVICES REPRESENTATIVEBeti Aly; Cleopatra Rey MD; Mike Bella MD Signed CBC-COMPLETE BLOOD CNT Collected: 07/22/2017 Status: F Source: [place] NO DIFF 8:12 AM [facility] REPOSITORY TYPE CODE TESTS RESULT OUT [...] MPV 10.0 Performed By: #### L100.0500 #### [facility] [address] [place], [address] RENAL PROFILE Collected: 07/22/2017 Status: F Source: [place] 8:12 AM [facility] REPOSITORY TYPE CODE TESTS RESULT OUT [...] CO2 22.0 Performed By: #### L500.3600 #### [facility] [address] [facility] [place], [address] TACROLIMUS (PROGRAF) Collected: 07/22/2017 Status: F Source: ANAHEIM 8:12 AM [facility] REPOSITORY TYPE CODE TESTS RESULT OUT OF RANGE REFERENCE UNITS LAB L3380.1100 2.0-20.0 ng/mL Normal TACROLIMUS 6.5 Result Comment: Trough (immediately following transplant) 15.0 Trough (steady state, 2 weeks or more after transplant): 3.0 - 8.0 Detection Limit = 1.0 Performed by LC-MS/MS technology. Performed at: [facility] [id number] Spare Parts Clerk: Renan Soares MD, Phone: [phone] Performed By: #### L3380.1000 #### [facility] (refer to report for specific site) refer to report for address and phone number DISCHARGE INSTRUCTION Observed: 07/21/2017 Status: F Source: A[place]HEIM 12:36 PM [facility] REPOSITORY [facility] [facility] Medical Records Department [address] [place] [address] Instructions for Home/Discharge Instructions 07/21/17 1229 MR#: [id number] Acct: [id number] Name: SKYLER PINZON Rep #: [id number] : 1965 52 From: Bharti Aly ACCESS SERVICES REPRESENTATIVEBeti PCP: Mike Bella MD Status: ADM PILY [...] treatment. Recommend you follow up with a wood carving machine operator that looks for reasons why you had [...] F Source: MELVIN PROFILE (BMP) 5:06 AM [facility] REPOSITORY Order Comment: 'TROP' Serial specimen [...] 9 Performed By: #### L500.2500, L501.4010 #### [facility] Laboratory [address] [place], [place], [address] TROPONIN-I Collected: 07/21/2017 Status: F Source: MELVIN 5:06 AM [facility] REPOSITORY Order Comment: 'TROP' Serial specimen #1, #2, #3, or #4: 2 TYPE CODE TESTS RESULT OUT OF RANGE REFERENCE UNITS LAB L501.4010 <0.06 ng/mL Normal < 0.02 TROPONIN-I Result Comment: TROPONIN-I EXPECTED VALUES <0.05 NEGATIVE 0.06 - 0.59 AT RISK OF NC > OR = 0.60 SUGGEST NC Performed By: #### L500.2500, L501.4010 #### [facility] [address] [place], [address] TROPONIN-I Collected: 07/21/2017 Status: F Source: ANAHEIM 2:05 AM [facility] REPOSITORY Order Comment: 'TROP' Serial specimen #1, #2, #3, or #4: 2 TYPE CODE TESTS RESULT OUT OF RANGE REFERENCE UNITS LAB L501.4010 <0.06 ng/mL Normal < 0.02 TROPONIN-I Result Comment: TROPONIN-I EXPECTED VALUES <0.05 NEGATIVE 0.06 - 0.59 AT RISK OF NC > OR = 0.60 SUGGEST NC Performed By: #### L501.4010 #### [facility] [address] [facility] [place], [address] HISTORY AND PHYSICAL Observed: 07/21/2017 Status: F Source: ANAHEIM EXAM 12:35 AM [facility] REPOSITORY [facility] Medical Records Department [address] [address] History and Physical 07/21/17 0024 MR#: [id number] Acct: [id number] Name: SKYLER PINZON Rep #: [id number] : 1965 52 From: Ambrosio Solis DO PCP: Mike Bella MD Status: ADM PILY Y Location: [place] [address] Problem List (1) Pulmonary embolism Status: Acute [...] patient's sister, who is patient's power of office services manager and advised the NOACs over Coumadin. * [...] sister, who is the patient's power of office services manager, discussed CPR and endotracheal intubation. Patient is to continue to be full CODE STATUS at this time. She does state that she he does have a follow-up appointment with his primary care doctor, Dr. Bella, in the coming week or 2 and they plan on discussing it with him at that time. Code Visit OBSV E AND M: 23486 Initial observation care L3 07/21/17 0035 <Electronically signed by Ambrosio Solis DO> Date Ambrosio Solis DO Cosigner Signature: Date (if applicable) CC: Ambrosio Solis DO; Mike Bella MD Signed EMERGENCY DEPARTMENT Observed: 07/20/2017 Status: F Source: ANAHEIM SUMMARY 11:51 PM [facility] REPOSITORY [facility] Medical Records Department [address] [place] [address] Emergency Department Summary 07/20/17 2348 MR#: [id number] Acct: [id number] Name: SKYLER PINZON Rep #: [id number] : 1965 52 From: Brooks Fallon DO [...] embolism Pneumonia] This note was generated with Txt4 dictation software. It may contain incorrect words, [...] your Primary Care Provider. Call [facility] ([phone]) or report to the closest Emergency Room. Call 911 if necessary. 07/20/17 1837 <Electronically signed by Brooks Fallon DO> Date Brooks Fallon DO Cosigner Signature (If Indicated): Date CC: Mike Bella MD CTA CHEST W/WO Observed: 07/20/2017 Status: F Source: MELVIN CONTRAST 10:09 PM [facility] REPOSITORY [facility] Imaging Services [address] [place] [address] CTA Chest W/WO Contrast MR#: [id number] Acct: [id number] Name: SKYLER PINZON Rep #: [id number] : 1965 M 52 From: Sheyla Long MD PCP: Mike Bella MD Status: REG ER Study: CTA Chest W/WO Contrast Date of Exam: 07/20/17 Exam# [id number] Ordering Dr: Brooks Fallon DO STUDY: CTA [...] CC: Mike Bella MD; Brooks Fallon DO Spring Clipper: Signed CHEST 1 VIEW Observed: 07/20/2017 Status: F Source: MELVIN (PORTABLE) 9:04 PM [facility] REPOSITORY [facility] Imaging Services [address] [address] Chest 1 View (Portable) MR#: [id number] Acct: [id number] Name: SKYLER PINZON Rep #: [id number] : 1965 M 52 From: Sheyla Long MD PCP: Mike Bella MD Status: REG ER Study: Chest 1 View (Portable) Date of Exam: 07/20/17 Exam# [id number] Ordering Dr: Brooks Fallon DO STUDY: X-RAY [...] CC: Mike Bella MD; Brooks Fallon DO Spring Clipper: Signed BASIC METABOLIC Collected: 07/20/2017 Status: F Source: MELVIN PROFILE (BMP) 8:55 PM [facility] REPOSITORY Order Comment: 'TROP' Serial specimen [...] 11 Performed By: #### L500.2500, L501.4010 #### [facility] [address] [place], [place], [address] TROPONIN-I Collected: 07/20/2017 Status: F Source: MELVIN 8:55 PM [facility] REPOSITORY Order Comment: 'TROP' Serial specimen #1, #2, #3, or #4: 1 TYPE CODE TESTS RESULT OUT OF RANGE REFERENCE UNITS LAB L501.4010 <0.06 ng/mL Normal < 0.02 TROPONIN-I Result Comment: TROPONIN-I EXPECTED VALUES <0.05 NEGATIVE 0.06 - 0.59 AT RISK OF NC > OR = 0.60 SUGGEST NC Performed By: #### L500.2500, L501.4010 #### [facility] [address] [place], [place], [id number] CBC W/DIFF, AUTOMATED Collected: 07/20/2017 Status: C Source: ANAHEIM 8:55 PM [facility] REPOSITORY TYPE CODE TESTS RESULT OUT [...] as: August Performed By: #### L100.0100 #### [facility] [address] [place], [address] D-DIMER QUANTITATIVE Collected: 07/20/2017 Status: F Source: MELVIN (DVT/PE) 8:55 PM [facility] REPOSITORY TYPE CODE TESTS RESULT OUT OF RANGE REFERENCE UNITS LAB L300.8000 0.27-0.49 FEU/ug/m High alert D-DIMER 4.98 QUANT Result Comment: D-Dimer ELEVATED (>0.49): Additional studies and clinical assessments are indicated to conclude diagnosis of: Deep Vein Thrombosis (DVT) or Pulmonary Embolism (PE) CRITICAL VALUE VERIFIED. CALLED TO [facility] 07/20/17 2158 Amelia Mina. RESULTS READ BACK BY SAME . Performed By: #### L300.8000 #### [facility] [address] [facility] [place], [address] DISCHARGE INSTRUCTION Observed: 07/18/2017 Status: F Source: MELVIN 9:58 AM [facility] REPOSITORY [facility] Medical Records Department [address] [place] [address] Instructions for Home/Discharge Instructions 07/18/17 0952 MR#: [id number] Acct: [id number] Name: SKYLER PINZON Rep #: [id number] : 1965 52 From: Bharti REGAN PCP: Mike Bella MD Status: ADM IN [...] F Source: MELVIN NO DIFF 6:14 AM [facility] REPOSITORY TYPE CODE TESTS RESULT OUT [...] MPV 11.2 Performed By: #### L100.0500 #### [facility] [address] [facility]. [place], [place], [address] BASIC METABOLIC Collected: 07/18/2017 Status: F Source: MELVIN PROFILE (BMP) 6:14 AM [facility] REPOSITORY TYPE CODE TESTS RESULT OUT [...] 9 Performed By: #### L500.2500, L501.2300 #### [facility] [address] [place], [address] PHOSPHORUS Collected: 07/18/2017 Status: F Source: MELVIN 6:14 AM [facility] REPOSITORY TYPE CODE TESTS RESULT OUT OF RANGE REFERENCE UNITS LAB L501.2300 2.5-4.9 mg/dL Low PHOS 2.1 Performed By: #### L500.2500, L501.2300 #### [facility] [place], [address] Observed: 07/17/2017 Status: F Source: MELVIN CDIFF (MOLECULAR) 8:52 AM [facility] REPOSITORY Order Date: 07/17/17 Cdiff-Molecular C. Diff DNA Negative- No toxigenic C. Diff DNA Detected NAAT METHOD Testing was performed using nucleic acid amplification Performed By: #### M100.6796 #### [facility] [address], [address] BASIC METABOLIC Collected: 07/17/2017 Status: F Source: MELVIN PROFILE (BMP) 7:24 AM [facility] REPOSITORY TYPE CODE TESTS RESULT OUT [...] GAP 9 Performed By: #### L500.2500 #### [facility] [place], [address] CBC-COMPLETE BLOOD CNT Collected: 07/17/2017 Status: F Source: MELVIN NO DIFF 7:24 AM [facility] REPOSITORY TYPE CODE TESTS RESULT OUT [...] MPV 11.3 Performed By: #### L100.0500 #### [facility] [address] [place] [address]. [place], [address] 12 LEAD ELECTROCARDIOGRAM Observed: 07/16/2017 Status: F Source: ANAHEIM 1:29 PM [facility] REPOSITORY [facility] Cardiovascular Services [address] [place] [address] 12 Lead EKG 07/13/17 2154 MR#: [id number] Acct: [id number] Name: SKYLER PINZON Rep #: [id number] : 1965 52 From: Rolf Mon MD Attending Dr: Keli Metzger Status: ADM IN Ordering Dr: Claus Lisa MD Date: 07/13/17 [place] [facility] [place] M C Admitted: 07/13/17 Test Reason : FEVER Blood Pressure : / mmHG Vent. Rate : 122 BPM Atrial Rate : 122 BPM P-R Int : 136 ms QRS Dur : 076 ms QT Int : 306 ms P-R-T Axes : 040 -07 055 degrees QTc Int : 436 ms Sinus tachycardia Otherwise normal ECG Confirmed by SUSAN MORENO, ROLF ([id number]), staff editor IRAM CONKLIN ([id number]) on 07/16/2017 1:29:09 PM Referred By: BROOK Confirmed By:ROLF MON MD 07/16/17 1329 Date Rolf Mon MD CC: Claus Lisa; Mike Bella MD Signed CBC W/DIFF, AUTOMATED Collected: 07/16/2017 Status: C Source: MELVIN 5:55 AM [facility] REPOSITORY TYPE CODE TESTS RESULT OUT [...] Lymph 0.72 Performed By: #### L100.0100 #### [facility] [address] [place], [address] COMPREHENSIVE METABOLIC Collected: 07/16/2017 Status: F Source: MELVIN [facility] 5:55 AM [facility] REPOSITORY TYPE CODE TESTS RESULT OUT [...] Performed By: #### L500.4050, L501.2300, L501.5200 #### [facility] [address] [facility] [place], [address] PHOSPHORUS Collected: 07/16/2017 Status: F Source: ANAHEIM 5:55 AM [facility] REPOSITORY TYPE CODE TESTS RESULT OUT OF RANGE REFERENCE UNITS LAB L501.2300 2.5-4.9 mg/dL Low PHOS 2.2 Performed By: #### L500.4050, L501.2300, L501.5200 #### [facility] [address] [facility] [place], [address] MAGNESIUM Collected: 07/16/2017 Status: F Source: ANAHEIM 5:55 AM [facility] REPOSITORY TYPE CODE TESTS RESULT OUT OF RANGE REFERENCE UNITS LAB L501.5200 1.6-2.6 mg/dL Normal MG 1.7 Result Comment: Please note revised Magnesium reference range effective 2017. Performed By: #### L500.4050, L501.2300, L501.5200 #### [facility] [address] [facility] [place], [address] ABDOMEN/PELVIS WITHOUT Observed: 07/16/2017 Status: F Source: MELVIN CONT 12:01 AM [facility] REPOSITORY [facility] Imaging Services [address] [place] [address] Abdomen/Pelvis without Cont MR#: [id number] Acct: [id number] Name: SKYLER PINZON Rep #: [id number] : 1965 M 52 From: Miah Barrios MD PCP: Mike Bella MD Status: ADM IN Study: Abdomen/Pelvis without Cont Date of Exam: 07/16/17 Exam# [id number] Ordering Dr: Adilene Metzger DO STUDY: CT [...] , CC: Keli Metzger; Mike Bella MD Spring Clipper: Signed CONSULTATION Observed: 07/15/2017 Status: F Source: MELVIN 10:07 AM [facility] REPOSITORY [facility] Medical Records Department [address] [place] [address] Consultation 07/15/17 0956 MR#: [id number] Acct: [id number] Name: SKYLER PINZON Rep #: [id number] : 1965 52 From: Darin Williamson MD PCP: Mike Bella MD Status: ADM IN Y Location: [address] Problem List (1) Kidney transplant recipient Status: [...] Amlodipine Besylate (Norvasc) 5 mg PO 2100 SERA Last Admin: 07/14/17 21:24 Dose: 5 mg Heparin Sodium (Porcine) (Heparin Na) 5,000 unit SC BID [facility] Last Admin: 07/15/17 09:02 Dose: 5,000 units Hydralazine HCl (Apresoline) 10 mg IV Q4H PRN PRN PRN Reason: SBP > 160 Sodium Chloride () 1,000 mls @ 150 mls/hr IV .Q6H40M [facility] Last Admin: 07/15/17 06:33 Dose: 150 mls/hr Meropenem 500 mg/ Sodium (Chloride) 60 mls @ 100 mls/hr IV Q6 [facility] Last Admin: 07/15/17 05:59 Dose: 100 mls/hr [...] (Cellcept) 500 mg PO BID [facility] Last Admin: 07/15/17 09:03 Dose: 500 mg [...] (Prograf) 2 mg PO BID [facility] Last Admin: 07/15/17 09:02 Dose: 2 mg Trimethoprim/Sulfamethoxazole (Bactrim Ds) 0.5 tablet [facility] Last Admin: 07/15/17 08:55 Dose: 0.5 tablet [...] F Source: MELVIN PROFILE (BMP) 5:43 AM [facility] REPOSITORY TYPE CODE TESTS RESULT OUT [...] Performed By: #### L500.2500, L501.2300, L501.5200 #### [facility] [address] [place], [address] PHOSPHORUS Collected: 07/15/2017 Status: F Source: ANAHEIM 5:43 AM [facility] REPOSITORY TYPE CODE TESTS RESULT OUT OF RANGE REFERENCE UNITS LAB L501.2300 2.5-4.9 mg/dL Low PHOS 1.8 Performed By: #### L500.2500, L501.2300, L501.5200 #### [facility] [address] [place], [address] MAGNESIUM Collected: 07/15/2017 Status: F Source: ANAHEIM 5:43 AM [facility] REPOSITORY TYPE CODE TESTS RESULT OUT OF RANGE REFERENCE UNITS LAB L501.5200 1.6-2.6 mg/dL Normal MG 1.8 Result Comment: Please note revised Magnesium reference range effective 2017. Performed By: #### L500.2500, L501.2300, L501.5200 #### [facility] [address] [place], [address] CBC W/DIFF, AUTOMATED Collected: 07/15/2017 Status: C Source: ANAHEIM 5:43 AM [facility] REPOSITORY TYPE CODE TESTS RESULT OUT [...] 07/15/17 1455 PATH REV previously reported as: August carmen Performed By: #### L100.0100 #### [facility] [address] [place], [address] CONSULTATION Observed: 07/14/2017 Status: F Source: ANAHEIM 12:54 PM [facility] REPOSITORY [facility] Medical Records Department [address] [place] [address] Consultation 07/14/17 1212 MR#: [id number] Acct: [id number] Name: SKYLER PINZON Rep #: [id number] : 1965 52 From: Cheng Santos MD PCP: Mike Bella MD Status: ADM IN [place] [facility] [id number] ADDENDUM by Cheng Santos MD on 07/14/17 [...] W/DIFF, AUTOMATED Collected: 07/14/2017 Status: C Source: ANAHEIM 6:20 AM [facility] REPOSITORY TYPE CODE TESTS RESULT OUT [...] August carmen Performed By: #### L100.0100 #### [facility] Laboratory [facility] [address] [place], [place], [address] BASIC METABOLIC Collected: 07/14/2017 Status: F Source: ANAHEIM PROFILE (BMP) 6:20 AM [facility] REPOSITORY TYPE CODE TESTS RESULT OUT [...] GAP 8 Performed By: #### L500.2500 #### [facility] [address] [facility] [place], [address] HISTORY AND PHYSICAL Observed: 07/14/2017 Status: F Source: ANAHEIM EXAM 1:05 AM [facility] REPOSITORY [facility] Medical Records Department [address] [place] [address] History and Physical 07/13/17 2336 MR#: [id number] Acct: [id number] Name: SKYLER PINZON Rep #: [id number] : 1965 52 From: Jesica Russo PCP: Mike Bella MD Status: ADM IN Location: [address] Problem List (1) Congenital nystagmus Status: [...] catheterization, Hx DVT who presents to the [facility] ED on 07/13/17 with history of onset [...] catheterization, Hx DVT who presents to the [facility] ED on 07/13/17 with history of onset [...] heparin. Code Visit Inpatient E AND M: 43712 Init Hosp L3 07/14/17 0105 <Electronically signed by Jesica Russo > Date Jesica Russo Cosigner Signature: Date (if applicable) CC: Jesica Russo; Mike Bella MD Signed EMERGENCY DEPARTMENT Observed: 07/14/2017 Status: F Source: ANAHEIM SUMMARY 12:10 [facility] Medical Records Department [address] [place] [address] Emergency Department Summary 07/13/17 2325 MR#: [id number] Acct: [id number] Name: SKYLER PINZON Rep #: [id number] : 1965 52 From: Claus Lisa MD [...] kidney disease This note was generated with Virtual Iron Softwareation software. It may contain incorrect words, spelling, [...] problems, contact your Primary Care Provider. Call [facility] ([phone]) or report to the closest Emergency Room. Call 911 if necessary. 07/14/17 0010 <Electronically signed by Claus Lisa MD> Date Claus Lisa MD Cosigner Signature (If Indicated): Date CC: Mike Bella MD URINALYSIS, COMPLETE Collected: 07/13/2017 Status: F Source: MELVIN 10:45 PM [facility] REPOSITORY Order Comment: How was Urine [...] URINE SEEN Performed By: #### L400.0001 #### [facility] [address] [facility]. [place], [place], [address] Observed: 07/13/2017 Status: F Source: MELVIN CULTURE, URINE 10:45 PM [facility] REPOSITORY Urine Culture ORGANISM 1: Enterobacter aerogenes [place] Count >100,000 Enterobacter aerogenes: REACTION Amoxacillin/Clavulanic Acid $ 8 R Cefazolin $ >=64 R Cefepime $ <=1 S Ceftriaxone $ 16 I Ciprofloxacin $ 0.5 S Ertapenim $$$ <=0.5 S Gentamicin $ <=1 S Imipenem *NF <=0.25 S Levofloxacin $ 1 S Nitrofurantoin $ 64 I Piperacillin/Tazobactam $$ <=4 S Tobramycin $ <=1 S Trimethoprim/Sulfametho $ >=320 R (NF) indicates non-formulary drug at [facility]. Approval by Infectious Disease Specialist required before non-formulary drugs may be ordered and/or dispensed. Performed By: #### M100.0650 #### [facility] Laboratory [facility]. [place], [place], [address] Observed: 07/13/2017 Status: F Source: MELVIN CULTURE, BLOOD (WB) 10:30 PM [facility] REPOSITORY BC No growth in 5 days. Performed By: #### M200.1000 #### [facility] [address] [facility] [place], [place], [address] Observed: 07/13/2017 Status: F Source: ANAHEIM INFLUENZA A+B (RAPID 10:28 PM [facility]) REPOSITORY Has pt arrived? Y FLU A/B Rapid Negative test results should be confirmed by culture. Order Rapid Viral Culture for Influenzae A+B (674362) if clinically indicated. Influenza Ag, Direct Presumptive NEGATIVE for Influenza A/B Antigen (See Note) Performed By: #### M101.0101 #### [facility] [address] [place], [address] CBC W/DIFF, AUTOMATED Collected: 07/13/2017 Status: F Source: ANAHEIM 10:10 PM [facility] REPOSITORY TYPE CODE TESTS RESULT OUT [...] LYMPHOPENIA NOTED Performed By: #### L100.0100 #### [facility] [address] [facility] [place], [address] PROTHROMBIN TIME W/INR Collected: 07/13/2017 Status: F Source: ANAHEIM 10:10 PM [facility] REPOSITORY TYPE CODE TESTS RESULT OUT OF RANGE REFERENCE UNITS LAB L300.4150 11.7-14.9 SECONDS Normal PROTIME 14.1 LAB L300.4200 Normal INR 1.1 Performed By: #### L300.3900, L300.4310 #### [facility] [address] [facility]. [place], [place], [address] PARTIAL THROMBOPLAST Collected: 07/13/2017 Status: F Source: [facility] 10:10 PM [facility] REPOSITORY TYPE CODE TESTS RESULT OUT OF RANGE REFERENCE UNITS LAB L300.4310 24.1-36.2 Seconds Normal PTT 29.0 Performed By: #### L300.3900, L300.4310 #### [facility] [address] [facility] [place], [address] COMPREHENSIVE METABOLIC Collected: 07/13/2017 Status: F Source: ANAHEIM PROFIL 10:10 PM [facility] REPOSITORY TYPE CODE TESTS RESULT OUT [...] GAP 11 Performed By: #### L500.4050 #### [facility] [address] [facility]. [place], [place], [address] LACTIC ACID Collected: 07/13/2017 Status: F Source: ANAHEIM 10:10 PM [facility] REPOSITORY Order Comment: Yes/No query for Sepsis Lactate Rule Y TYPE CODE TESTS RESULT OUT OF RANGE REFERENCE UNITS LAB L503.6005 0.4-2.0 mmol/L Normal LACTIC ACID 1.1 Performed By: #### L503.6005 #### [facility] [address] [place], [address] MAGNESIUM Collected: 07/13/2017 Status: F Source: MELVIN 10:10 PM [facility] REPOSITORY TYPE CODE TESTS RESULT OUT OF RANGE REFERENCE UNITS LAB L501.5200 1.6-2.6 mg/dL Low MG 1.4 Result Comment: Please note revised Magnesium reference range effective 2017. Performed By: #### L501.5200 #### [facility] [address] [place], [address] Observed: 07/13/2017 Status: F Source: MELVIN CULTURE, BLOOD (WB) 10:10 PM [facility] REPOSITORY BC No growth in 5 days. Performed By: #### M200.1000 #### [facility] [address] [place], [address] CHEST 1 VIEW Observed: 07/13/2017 Status: F Source: MELVIN (PORTABLE) 9:48 PM [facility] REPOSITORY [facility] Imaging Services [address] [place] [address] Chest 1 View (Portable) MR#: [id number] Acct: [id number] Name: SKYLER PINZON Rep #: [id number] : 1965 M 52 From: Hans Wong MD PCP: Mike Bella MD Status: REG ER Study: Chest 1 View (Portable) Date of Exam: 07/13/17 Exam# [id number] Ordering Dr: Claus Lisa MD STUDY: X-RAY [...] , CC: Claus Lisa; Mike Bella MD Spring Clipper: Signed KIDNEY AND BLADDER Observed: 07/12/2017 Status: F Source: ANAHEIM 10:49 AM [facility] REPOSITORY [facility] Imaging Services [address] [place] [place] [address] Kidney and Bladder MR#: [id number] Acct: [id number] Name: SKYLER PINZON Rep #: [id number] : 1965 M 52 From: Hans Wong MD PCP: Mike Bella MD Status: REG CLI Study: Kidney and Bladder Date of Exam: 07/12/17 Exam# [id number] Ordering Dr: Litzy Kern ACCESS SERVICES REPRESENTATIVE-C STUDY: RENAL ULTRASOUND - COMPLETE REASON FOR [...] calculi. 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 There is moderate hydronephrosis of the right kidney. There is a diffusely thickened wall of the distended bladder. Echogenic debris is seen within the dependent aspect of the urinary bladder. Unremarkable right renal transplant kidney. Electronically Signed: Hans Wong MD at 17:37 EDT , Service support , CC: Mike Bella MD; Litzy Kern NP Spring Clipper: Signed CBC-COMPLETE BLOOD CNT Collected: 06/04/2017 Status: F Source: MELVIN NO DIFF 8:17 AM [facility] REPOSITORY TYPE CODE TESTS RESULT OUT [...] MPV 9.8 Performed By: #### L100.0500 #### [facility] [facility] [address] [place], [address] RENAL PROFILE Collected: 06/04/2017 Status: F Source: [place] 8:17 AM [facility] REPOSITORY Order Comment: Comments: RED TOP [...] CO2 22.0 Performed By: #### L500.3600 #### [facility] [address] [place], [address] MISCELLANEOUS LAB Collected: 06/04/2017 Status: F Source: [place] PROCEDURE 8:17 AM [facility] REPOSITORY Order Comment: Comments: RED TOP SERUM,ROOM TEMP Test(s) Ordered: [id number] TYPE CODE TESTS RESULT OUT OF RANGE REFERENCE UNITS LAB L801.1541 Normal [facility] LAB TEST Result Comment: TEST RESULT LIMITS Mycophenolic Acid and Metabo. Mycophenolic Acid 2.3 ug/mL 1.0 - 3.5 Mycophenolic Acid Glucuronide 28 ug/mL 15 - 125 [facility]. ORIGINAL REPORT ON FILE IN LAB CONTAINS ADDITIONAL TEST SITE INFORMATION. Performed By: #### L801.1541 #### [facility] [address] [place], [address] ALLERGIES ALLERGIES DATE TYPE / CODE NAME / CODE REACTION SEVERITY SOURCE 12/22/2017 Drug No Known Unknown [facility] Allergy/4160 Allergies/F00 Hospital 92838(SNOMED 2050897(RXNOR Repository CT) M) ENCOUNTERS ENCOUNTERS ADMIT/DISCHARGE ACCOUNT ADMITTING ENCOUNTER LOCATION SOURCE NUMBER CLASS 05/18/2018 [id number] [facility] ing:OLS.AVEB Repository 05/11/2018 [id number] [facility] ing:OLS.AVED Repository 05/04/2018 [id number] [facility] ing:OLS.AVED Repository 05/03/2018 [id number] [facility] ing:LAB Repository 04/27/2018 [id number] [facility] ing:OLS.AVED Repository 04/20/2018 [id number] [facility] ing:OLS.AVED Repository 04/14/2018 [id number] [facility] Repository 04/13/2018 [id number] [facility] ing:OLS.AVED Repository 04/11/2018/04/11/[id number] Hospital ing:LAB Repository 04/06/2018 [id number] [facility] ing:OLS.AVED Repository 03/30/2018 [id number] [facility] ing:OLS.AVED Repository 03/23/2018 [id number] [facility] ing:OLS.AVED Repository 03/16/2018 [id number] Ambulatory [facility] Hospital ing:OLS.AVED Repository 03/15/2018 [id number] Ambulatory [facility] Repository 03/09/2018 [id number] Ambulatory [facility] Hospital ing:OLS.AVED Repository 03/02/2018 [id number] Ambulatory [facility] Hospital ing:OLS.AVED Repository 02/23/2018/02/25/20 [id number] Emergency [place] 18 [facility] Hospital ing:ED Repository 02/23/2018 [id number] Ambulatory [facility] Hospital ing:OLS.AVED Repository 02/16/2018 [id number] Ambulatory [facility] Hospital ing:OLS.AVED Repository 02/09/2018 [id number] Ambulatory [facility] Hospital ing:OLS.AVED Repository 02/02/2018 [id number] Ambulatory [facility] Hospital ing:OLS.AVED Repository 01/16/2018/02/02/20 [id number] Gentry, Mikey Chi Inpatient [place] [address] [facility] ing:TCURoom: Repository RFK77Vcb: 1 01/11/2018/01/17/20 [id number] [place], Jesica Inpatient [place] 18 Encounter [facility] Hospital ing:FF6Smkf: Repository QB989Gxq: 1 01/11/2018 [id number] [place], Jesica Ambulatory BMSBuilding:B [place].[facility] Repository 01/11/2018 [id number] [place], [place] Ambulatory BMSBuilding:B [place] [facility] Repository 01/11/2018 [id number] [place], Jesica Ambulatory BMSBuilding:B [place] [facility] Repository 01/11/2018 [id number] [place], Jesica Ambulatory BMSBuilding:B [place] [facility] Repository 01/11/2018 [id number] [place], Jesica Ambulatory BMSBuilding:B [place].[facility] Repository 01/11/2018 [id number] [place], Jesica Ambulatory BMSBuilding:B [place].[facility] Hospital Repository 12/22/2017/12/23/19 [id number] Ambulatory BMSBuilding:B [place] 18 [place].[facility] Repository 12/20/2017/12/21/19 [id number] Ambulatory [address] Hospital ing:LAB Repository 12/11/2017 [id number] Ambulatory [facility] Hospital ing:CT Repository 12/09/2017/12/10/19 [id number] Ambulatory BMSBuilding:B [place] 18 [place].[facility] Repository 12/07/2017/12/08/19 [id number] Emergency [place] Hospital ing:ED Repository 12/02/2017 [id number] Ambulatory [facility] Repository 11/23/[id number] Maddie Ambulatory [facility] Repository 11/19/2017/11/20/19 [id number] Ambulatory [place] Hospital ing:LAB Repository 10/30/2017 [id number] Ambulatory [facility] Hospital ing:RAD.FUTUR Repository E 10/21/2017/10/22/19 [id number] Ambulatory [place] Hospital ing:LAB Repository 10/20/2017 [id number] Ambulatory [facility] Hospital ing:MTRAD Repository 09/28/2017/09/30/19 [id number] Emergency [place] Hospital ing:ED Repository 09/23/2017 [id number] Ambulatory [facility] Hospital ing:MTRAD Repository 09/20/2017/09/21/19 [id number] [place] [facility] [address] [facility] Repository 09/11/2017 [id number] Ambulatory BMSBuilding:B [place].[facility] Hospital Repository 09/11/2017/09/12/19 [id number] Jes[place] Russo Inpatient [place] 18 [facility] ing:BI9Twfk: Repository PW241Vaz: 1 09/11/2017 [id number] [place], [place] Ambulatory BMSBuilding:B [place] GAG[facility]F.[facility] Repository 09/09/2017 [id number] Ambulatory [facility] ing:MTRAD Repository 08/20/2017/08/21/19 [id number] Ambulatory [address] ing:LAB Repository 08/18/2017/08/19/19 [id number] Ari, Ambulatory [address] ing:EA0Biqt: Repository AM026Jpp: 1 08/18/2017 [id number] Ari, Ambulatory BMSBuilding:B [place] MS.[facility] Repository 08/04/2017/01/19/20 [id number] Ambulatory [address] ing:CCN Repository 07/28/2017/07/29/19 [id number] Emergency [address] ing:ED Repository 07/22/2017/07/23/19 [id number] Ambulatory [address] ing:LAB Repository 07/21/2017/07/22/19 [id number] Ambrosio Solis Ambulatory [address] ing:PCURoom: Repository AGF473Wnb: 1 07/21/2017 [id number] Ambrosio Solis Ambulatory BMSBuilding:B [place] LEAL.[facility] Repository 07/13/2017/07/19/19 [id number] [place], Jesica Inpatient [address] ing:UP4Pgib: Repository MQ900Znk: 1 07/13/2017 [id number] [place], Jesica Ambulatory BMSBuilding:B [place] [facility] Repository 07/13/2017 [id number] [place], [place] Ambulatory BMSBuilding:B [place] [facility] Repository 07/13/2017 [id number] White, Jesica Ambulatory BMSBuilding:B [place] LEAL.[facility] Repository 07/13/2017 [id number] White, Jesica Ambulatory BMSBuilding:B [place] LEAL.[facility] Repository 07/13/2017 [id number] White, Jesica Ambulatory BMSBuilding:B [place] [facility] Repository 07/13/2017 [id number] [place], [place] Ambulatory BMSBuilding:Frederic Charles MS.[facility] Repository 07/12/2017 [id number] [facility] ing:US Repository 07/06/[id number] Jeanne Ambulatory [facility] Repository 06/18/2017/06/18/[id number] ing:LAB Repository 05/28/2017/05/28/19 [id number] Ambulatory [address] ing:LAB Repository PAYERS PAYERS ENCOUNTER GUARANTOR PAYER SUBSCRIBER SOURCE 05/18/2018 [place] [id number] Primary Insurance:SELF NOT GIVENUNK [place] [address] PAY [address] Number: Effective Hospital [id number]: (330) Date:2018-05-18 Repository [phone] () 05/11/2018 [place] L [id number] Primary Insurance:SELF NOT GIVENUNK [place] [address] PAY [address] Number: Effective Hospital [id number]: (330) Date:2018-05-11 Repository [phone] (HP) 05/04/2018 [place]YLER L [id number] Primary SKYLER L STYPEDOB: [place] [address] Insurance:MEDICARE [id number] PART A BPolicy Number: Hospital [id number]: (330) [id number] Repository [phone] (HP) Date:2018-05-04 05/04/2018 Secondary SKYLER L STYPEDOB: [place] Insurance:CIGNAPolicy [id number] Community Number: Hospital [id number] Repository Date:7296-83-25CX ABDOUL 473170OUWSTZKWWKV, [place] [address]PJ: 05/04/2018 Tertiary NOT GIVENUNK [place] Insurance:SELF PAY [facility] Hospital Number: Effective Repository Date:2018-05-04 05/03/2018 SKYLER L [id number] Primary SKYLER L STYPEDOB: [place] [address] Insurance:MEDICARE [id number] Community [address] [place] [address] PART A BPolicy Number: Hospital [id number]: 330 [id number] Repository [phone] () Date:2017-06-04 05/03/2018 Secondary SKYLER L STYPEDOB: [place] Insurance:CIGNAPolicy [id number] Community Number: Hospital [id number] Repository Date:7908-26-68NI [address]IKJDXXWSHJA, [place] [address]SN: 05/03/2018 Tertiary NOT GIVENUNK [place] Insurance:SELF PAY [facility] Number: Effective Repository Date:2018-05-02 04/27/2018 SKYLER L [id number] Primary SKYLER L STYPEDOB: [place] [address] Insurance:MEDICARE [id number] [address] PART A BPolicy Number: Hospital [id number]: (330 [id number] Repository () Date:2018-04-27 04/27/2018 Secondary SKYLER L STYPEDOB: [place] Insurance:CIGNAPolicy [id number] Community Number: Hospital [id number] Repository Date:7142-19-71PC [address]YQQKJXOYIOG, [place] [address]UP: 04/27/2018 Tertiary NOT GIVENUNK [place] Insurance:SELF PAY Community [facility] Number: Effective Repository Date:2018-04-27 04/20/2018 SKYLER L [id number] Primary SKYLER L STYPEDOB: [place] [address] Insurance:MEDICARE [id number] [address] PART A BPolicy Number: Hospital [id number]: 330 [id number] Repository [phone] () Date:2018-04-20 04/20/2018 Secondary SKYLER L STYPEDOB: [place] Insurance:CIGNAPolicy [id number] Community Number: Hospital [id number] Repository Date:4708-09-80SV [address]RLOHTY[address]J, [place] [address]HP: 04/20/2018 Tertiary NOT GIVENUNK [place] Insurance:SELF PAY [facility] Hospital Number: Effective Repository Date:2018-04-20 04/14/2018 SKYLER L STYPEDOB: Primary SKYLER L STYPEDOB: University Insurance:[facility] [id number] [place] [address] PlanPolicy Number: 3 [facility] Repository [address] # [id number] [address], [place] Date:9233-20-70Fymj [address] [place] [address] 15912Ecw: (615) Name:[facility] [address]Kvf: (HP) [address]Pcwcgwrybnn [place] [phone] () 19747PQ: 04/14/2018 Secondary SKYLER L STYPEDOB: University Insurance:[facility] [id number] [place] [address] Repository Number: APT. # [id number] [address] [place], [place] [address], [place] Date:Plan Name:[place] [address]Tel: (HP) 04/14/2018 Tertiary SKYLER L STYPEDOB: University Insurance:MedicarePoli [id number] Hospitals cy Number: 3 [facility] Repository [id number] [address]. # Date:Plan Name:Candis A [address] [place] [address] 13499Zal: () 04/14/2018 Tertiary SKYLER L STYPEDOB: University Insurance:MedicarePoli [id number] Hospitals cy Number: 3 [facility] Repository [id number] [address] # Date:Plan Name:[facility] B [address] [place] [address] 89231Apf: () 04/13/2018 SKYLER L [id number] Primary SKYLER L STYPEDOB: [place] [facility] Insurance:MEDICARE [id number] Community [address] PART A BPolicy Number: [facility] [address]Wke: 330) [id number] Repository [phone] () Date:2018-04-13 04/13/2018 Secondary SKYLER L STYPEDOB: [place] Insurance:CIGNAPolicy [id number] Community Number: Hospital [id number] Repository Date:5266-38-26ZC [address]XMDZKUOCTND, [place] [address]ZD: 04/13/2018 Tertiary NOT GIVENUNK [place] Insurance:SELF PAY Community [facility] Number: Effective Repository Date:2018-04-13 04/11/2018 SKYLER L [id number] Primary SKYLER L STYPEDOB: [place] [address] Insurance:MEDICARE [id number] [address] PART A BPolicy Number: Hospital [address]Yns: 330 [id number] Repository 262 () Date:2017-06-04 04/11/2018 Secondary SKYLER L STYPEDOB: [place] Insurance:CIGNAPolicy [id number] Community Number: Hospital [id number] Repository Date:8386-53-55AE [address]TMHOWPDNLJQ, [place] [address]FT: 04/11/2018 Tertiary NOT GIVENUNK [place] Insurance:SELF PAY Community [facility] Number: Effective Repository Date:2018-01-04 04/06/2018 SKYLER L [id number] Primary SKYLER L STYPEDOB: [place] [address] Insurance:MEDICARE [id number] [address] PART A BPolicy Number: Hospital [id number]: 330 [id number] Repository [phone] () Date:2018-04-06 04/06/2018 Secondary SKYLER L STYPEDOB: [place] Insurance:CIGNAPolicy [id number] Community Number: Hospital [id number] Repository Date:6673-86-29RQ [address]NOIBJXZNJGI, [place] [address]OZ: 04/06/2018 Tertiary NOT GIVENUNK [place] Insurance:SELF PAY Community [facility] Number: Effective Repository Date:2018-04-06 03/30/2018 SKYLER L [id number] Primary SKYLER L STYPEDOB: [place] [address] Insurance:MEDICARE [id number] [address] PART A BPolicy Number: Hospital [id number]: (024) [id number] Repository 262 (HP) Date:2018-03-30 03/30/2018 Secondary SKYLER L STYPEDOB: [place] Insurance:CIGNAPolicy [id number] Community Number: Hospital [id number] Repository Date:1332-40-64GS [address] [place] [address]OP: 03/30/2018 Tertiary NOT GIVENUNK [place] Insurance:SELF PAY Community [facility] Hospital Number: Effective Repository Date:2018-03-30 03/23/2018 SKYLER L [id number] Primary SKYLER L STYPEDOB: [place] [address] Insurance:MEDICARE [id number] [address] PART A BPolicy Number: Hospital [id number]: 330 [id number] Repository (HP) Date:2018-03-23 03/23/2018 Secondary SKYLER L STYPEDOB: [place] Insurance:CIGNAPolicy [id number] Community Number: Hospital [id number] Repository Date:7322-32-38WC [address] [place] [address]SR: 03/23/2018 Tertiary NOT GIVENUNK [place] Insurance:SELF PAY Community [facility] Hospital Number: Effective Repository Date:2018-03-23 03/16/2018 Skyler L [id number] Primary Insurance:SELF NOT GIVENUNK [place] [address] [address] Number: Effective Hospital [id number]: (330) Date:2018-03-16 Repository 262 (HP) 03/15/2018 SKYLER L STYPEDOB: Primary SKYLER L STYPEDOB: University [id number] Insurance:MedicarePoli [id number] [place] [address] cy Number: 3 [facility] Repository [address]. # [id number] [address]T. # [facility] [place] Date:Plan Name:[place] [address]Zrz: [phone] 455[address]Zqe: (HP) [phone] (HP) 03/15/2018 Secondary SKYLER L STYPEDOB: University Insurance:MedicarePoli [id number] Hospitals cy Number: [address] [place] [address] Repository [id number] [address]. # Date:Plan Name[facility] [facility] [place] [place] [place] [address]Cpd: (HP) 03/15/2018 Tertiary SKYLER L STYPEDOB: University Insurance:[facility] [id number] Hospitals PlanPolicy Number: [address] [place] [address] Repository [id number] APT. # Date:6950-75-09Raoc[address] Name:[facility] [address]Gae: [phone] [address]505[address]Bdatwxzhkrk, [place] [phone] () 445[address]KO: 03/15/2018 Tertiary SKYLER L STYPEDOB: [place] Insurance:[facility] [id number] Hospitals HealthcarePolicy [address] [place] [address] Repository Number: APT. # [id number] [address] [place] [address] Date:Plan Name:[facility] [address]Iif: () 03/09/2018 Skyler L [id number] Primary Insurance:SELF [facility]K [facility] [address] Number: Effective Hospital [id number]: (330) Date:2018-03-09 Repository [phone] (HP) 03/02/2018 SKYLER L [id number] Primary Insurance:SELF NOT GIVENUNK [facility] [address] [place] Number: Effective Hospital [id number]: (330) Date:2018-03-02 Repository [phone] (HP) 02/23/2018 SKYLER L [id number] Primary SKYLER L [facility]EDOB[facility]ICARE [id number] PART A BPolicy Number: Hospital [address]Fil: (652) [id number] Repository 262 () Date:2018-02-23 02/23/2018 Secondary SKYLER L STYPEDOB: [place] Insurance:CIGNAPolicy [id number] Community Number: Hospital [id number] Repository Date:7041-30-21XB [address] [address]JR: 02/23/2018 Tertiary NOT GIVENUNK [place] Insurance:SELF PAY [facility] Hospital Number: Effective Repository Date:2018-02-23 02/23/2018 SKYLER L [id number] Primary Insurance:SELF NOT GIVENUNK [place] [address] PAY [address] [place] Number: Effective Hospital [id number]: (330) Date:2018-02-23 Repository 262 () 02/16/2018 SKYLER L [id number] Primary Insurance:SELF NOT GIVENUNK [place] [address] PAY [address] Number: Effective Hospital [id number]: (330) Date:2018-02-16 Repository 262 () 02/09/2018 SKYLER L [id number] Primary Insurance:SELF NOT GIVENUNK [place] [address] PAY [address] Number: Effective Hospital [id number]: (330) Date:2018-02-09 Repository 262 () 02/02/2018 SKYLER L [id number] Primary Insurance:SELF NOT GIVENUNK [place] [address] PAY [address] [place] Number: Effective Hospital [phone]: (330) Date:2018-02-02 Repository 262 () 01/16/2018 SKYLER L [id number] Primary SKYLER L STYPEDOB: [place] [address] Insurance:MEDICARE [id number] PART A BPolicy Number: Hospital [id number]: (330) [id number] Repository 262 () Date:2018-01-16 01/16/2018 Secondary SKYLER L STYPEDOB: [place] Insurance:CIGNAPolicy [id number] Community Number: Hospital [id number] Repository Date:8120-35-10SY [address]DHTTXDGATPT, [place] [address]GE: 01/16/2018 Tertiary NOT GIVENUNK [place] Insurance:SELF PAY Community [facility] Number: Effective Repository Date:2018-01-16 01/11/2018 SKYLER L [id number] Primary SKYLER L STYPEDOB: [place] [address] Insurance:MEDICARE [id number] [address] PART A BPolicy Number: Hospital [address]Jyo: (854) [id number] Repository [phone] (HP) Date:2018-01-11 01/11/2018 Secondary SKYLER L STYPEDOB: [place] Insurance:CIGNAPolicy [id number] Community Number: Hospital [id number] Repository Date:5533-86-03FD [address]ZRDZPQWMZTH, [place] [address]SM: 01/11/2018 Tertiary NOT GIVENUNK [place] Insurance:SELF PAY [facility] Number: Effective Repository Date:2018-01-11 01/11/2018 SKYLER L [id number] Primary SKYLER L STYPEDOB: [place] [address] Insurance:MEDICARE [id number] [address] PART A BPolicy Number: Hospital [address]Wjw: (992) [id number] Repository [phone] (HP) Date:2018-01-11 01/11/2018 Secondary SKYLER L STYPEDOB: [place] Insurance:CIGNAPolicy [id number] Community Number: Hospital [id number] Repository Date:7996-08-40CQ [address]IPABGSRDIKT, [place] [address]SN: 01/11/2018 Tertiary NOT GIVENUNK [place] Insurance:SELF PAY Community [facility] Hospital Number: Effective Repository Date:2018-01-11 01/11/2018 SKYLER L [id number] Primary SKYLER L STYPEDOB: [place] [address] Insurance:MEDICARE [id number] [address] PART A BPolicy Number: Hospital [address]Nww: (878) [id number] Repository [phone] () Date:2018-01-11 01/11/2018 Secondary SKYLER L STYPEDOB: [place] Insurance:CIGNAPolicy [id number] Community Number: [facility] [id number] Repository Date:0657-97-50ZR [address]AWSQXMUWUJO [place] [address]UU: 01/11/2018 Tertiary NOT GIVENUNK [place] Insurance:SELF PAY Community [facility] Hospital Number: Effective Repository Date:2018-01-11 01/11/2018 SKYLER L [id number] Primary SKYLER L STYPEDOB: [place] [address] Insurance:MEDICARE [id number] [address] PART A BPolicy Number: [facility] [id number]: (335) [id number] Repository 262 () Date:2018-01-11 01/11/2018 Secondary SKYLER L STYPEDOB: [place] Insurance:CIGNAPolicy [id number] Community Number: [facility] [id number] Repository Date:2946-57-04KT [address]JDIGYMKFZXN, [place] [address]VQ: 01/11/2018 Tertiary NOT GIVENUNK [place] Insurance:SELF PAY Community [facility] Hospital Number: Effective Repository Date:2018-01-11 01/11/2018 SKYLER L [id number] Primary SKYLER L STYPEDOB: [place] [address] Insurance:MEDICARE [id number] [address] PART A BPolicy Number: Hospital [id number]: 330 [id number] Repository [phone] () Date:2018-01-11 01/11/2018 Secondary SKYLER L STYPEDOB: [place] Insurance:CIGNAPolicy [id number] Community Number: [facility] [id number] Repository Date:1379-82-76EA [address]FATJUEWCUDO, [place] [address]HN: 01/11/2018 Tertiary NOT GIVENUNK [place] Insurance:SELF PAY Community [facility] Hospital Number: Effective Repository Date:2018-01-11 01/11/2018 SKYLER L [id number] Primary SKYLER L STYPEDOB: [place] [address] Insurance:MEDICARE [id number] Community [address] [place] [address] PART A BPolicy Number: Hospital [id number]: 330 [id number] Repository [phone] () Date:2018-01-11 01/11/2018 Secondary SKYLER L STYPEDOB: [place] Insurance:CIGNAPolicy [id number] Community Number: Hospital [id number] Repository Date:6624-13-99JZ [address] [address]RX: 01/11/2018 Tertiary NOT GIVENUNK [place] Insurance:SELF PAY Community [facility] Hospital Number: Effective Repository Date:2018-01-11 01/11/2018 SKYLER L [id number] Primary SKYLER L STYPEDOB: [place] [address] Insurance:MEDICARE [id number] [address] PART A BPolicy Number: Hospital [id number]: 330 [id number] Repository () Date:2018-01-11 01/11/2018 Secondary SKYLER L STYPEDOB: [place] Insurance:CIGNAPolicy [id number] Community Number: Hospital [id number] Repository Date:1703-77-27TC [address] [address]CU: 01/11/2018 Tertiary NOT GIVENUNK [place] Insurance:SELF PAY Community [facility] Hospital Number: Effective Repository Date:2018-01-11 12/22/2017 SKYLER L [id number] Primary SKYLER L STYPEDOB: [place] [address] Insurance:MEDICARE [id number] [address] PART A BPolicy Number: Hospital [address]Rfh: 330 [id number] Repository () Date:2017-12-09 12/22/2017 Secondary SKYLER L STYPEDOB: [place] Insurance:CIGNAPolicy [id number] Community Number: Hospital [id number] Repository Date:6793-51-32UX [address] [address]FO: 12/22/2017 Tertiary NOT GIVENUNK [place] Insurance:SELF PAY Community [facility] Hospital Number: Effective Repository Date:2017-12-14 12/20/2017 SKYLER L [id number] Primary SKYLER L STYPEDOB: [place] [address] Insurance:MEDICARE [id number] [address] PART A BPolicy Number: Hospital [id number]: (785) [id number] Repository [phone] () Date:2017-06-04 12/20/2017 Secondary SKYLER L STYPEDOB: [place] Insurance:CIGNAPolicy [id number] Community Number: Hospital [id number] Repository Date:9720-78-91KF [address]NSSTFIATQIK, [place] [address]DK: 12/20/2017 Tertiary NOT GIVENUNK [place] Insurance:SELF PAY Community [facility] Hospital Number: Effective Repository Date:2017-12-02 12/11/2017 Skyler L [id number] Primary Skyler L StypeDOB: [place] [address] Insurance:MEDICARE [id number] [address] PART A BPolicy Number: Hospital [id number]: [id number] Repository [phone] () Date:2017-12-10 12/11/2017 Secondary Skyler L StypeDOB: [place] Insurance:CIGNAPolicy [id number] Community Number: Hospital [id number] Repository Date:7947-40-08QR [address]QNKJMXKLEQD, [place] [address]QQ: 12/11/2017 Tertiary NOT GIVENUNK [place] Insurance:SELF PAY Community [facility]: Effective Repository Date:2017-12-10 12/09/2017 SKYLER L [id number] Primary SKYLER L STYPEDOB: [place] [address] Insurance:MEDICARE [id number] [address] PART A BPolicy Number: Hospital [id number]: [id number] Repository [phone] () Date:2017-11-05 12/09/2017 Secondary SKYLER L STYPEDOB: [place] Insurance:CIGNAPolicy [id number] Community Number: Hospital [id number] Repository Date:0003-10-89VI [place] [id number] [place] [address]PC: 12/09/2017 Tertiary NOT GIVENUNK [place] Insurance:SELF PAY Community [facility] Hospital Number: Effective Repository Date:2017-12-02 12/07/2017 SKYLER L [id number] Primary SKYLER L STYPEDOB: [place] [address] Insurance:MEDICARE [id number] PART A BPolicy Number: Hospital [id number]: (102) [id number] Repository [phone] () Date:2017-12-07 12/07/2017 Secondary SKYLER L STYPEDOB: [place] Insurance:CIGNAPolicy [id number] Community Number: Hospital [id number] Repository Date:8975-76-45ZO [address]MRPFAOVEOBD [place] [address]TJ: 12/07/2017 Tertiary NOT GIVENUNK [place] Insurance:SELF PAY Community [facility] Hospital Number: Effective Repository Date:2017-12-07 12/02/2017 SKYLER L [id number] Primary SKYLER L STYPEDOB: [place] [address] Insurance:MEDICARE [id number] PART A BPolicy Number: Hospital [id number]: [phone]) [id number] Repository [phone] () Date:2017-12-02 12/02/2017 Secondary SKYLER L STYPEDOB: [place] Insurance:CIGNAPolicy [id number] Community Number: Hospital [id number] Repository Date:8680-23-28FN [address]BMHZTADOBXV, [place] [address]LT: 12/02/2017 Tertiary NOT GIVENUNK [place] Insurance:SELF PAY Community [facility] Hospital Number: Effective Repository Date:2017-12-02 11/23/2017 SKYLER L STYPEDOB: Primary SKYLER L STYPEDOB: [place] Insurance:MedicarePoli [id number] cy Number: 3 [facility] Repository [id number] # , [place] Date:Plan Name:Candis Prieto [address] [place] [address]Ndg: [phone]: (HP) [phone] (HP) 11/23/2017 Secondary SKYLER L STYPEDOB: [place] Insurance:MedicarePoli [id number] Hospitals cy Number: 3 [facility] Repository [id number] # Date:Plan Name:Candis De La Garza [address] [place] [address] 469[address]Wxi: (HP) 11/23/2017 Tertiary SKYLER L STYPEDOB: [place] Insurance:[facility] [id number] Hospitals PlanPolicy Number: 3 [facility] Repository [id number] [address]T. # Date:9690-83-07Qvuc[address] Name:[facility] [address]Sxq: [phone], [place] [phone] (HP) [address]NX: 11/23/2017 Tertiary SKYLER L STYPEDOB: [place] Insurance:[facility] [id number] [place], [place] [address] Repository Number: APT. # [id number] [place], [place] Date:Plan Name:[facility] [address]Fjm: () 11/19/2017 SKYLER L [id number] Primary SKYLER L STYPEDOB: [place] [facility] Insurance:MEDICARE [id number] Community [address] PART A BPolicy Number: Hospital [id number]: (256) [id number] Repository [phone] () Date:2017-06-04 11/19/2017 Secondary SKYLER L STYPEDOB: [place] Insurance:[facility] [id number] Community Number: Hospital [id number] Repository Date:2367-49-20KP [address]GUNNZSHGQSS, [place] [address]OF: 11/19/2017 Tertiary NOT GIVENUNK [place] Insurance:SELF PAY Community [facility] Hospital Number: Effective Repository Date:2017-10-29 10/30/2017 SKYLER L [id number] Primary SKYLER L STYPEDOB: [place] [address] Insurance:MEDICARE [id number] [address] PART A BPolicy Number: Hospital [id number]: (122) [id number] Repository [phone] () Date:2017-09-13 10/30/2017 Secondary SKYLER L STYPEDOB: [place] Insurance:CIGNAPolicy [id number] Community Number: Hospital [id number] Repository Date:9090-90-86HU [address]NMDRZQWMKWC, [place] [address]FN: 10/30/2017 Tertiary NOT GIVENUNK [place] Insurance:SELF PAY Community [facility] Hospital Number: Effective Repository Date:2017-09-13 10/21/2017 SKYLER L [id number] Primary SKYLER L STYPEDOB: [place] [address] Insurance:MEDICARE [id number] [address] PART A BPolicy Number: Hospital [address]Mfz: (126) [id number] Repository [phone] () Date:2017-06-04 10/21/2017 Secondary SKYLRE L STYPEDOB: [place] Insurance:CIGNAPolicy [id number] Community Number: Hospital [id number] Repository Date:4820-04-32UR [address]BVINPPWPNVL, [place] [address]HI: 10/21/2017 Tertiary NOT GIVENUNK [place] Insurance:SELF PAY Community [facility] Hospital Number: Effective Repository Date:2017-09-30 10/20/2017 SKYLER L [id number] Primary SKYLER L STYPEDOB: [place] [address] Insurance:MEDICARE [id number] [address] PART A BPolicy Number: Hospital [id number]: ([phone]) [id number] Repository [phone] (HP) Date:2017-10-20 10/20/2017 Secondary SKYLER L STYPEDOB: [place] Insurance:CIGNAPolicy [id number] Community Number: Hospital [id number] Repository Date:7151-09-41RU [address]ZKUPRWXRIWC, [place] [address]IT: 10/20/2017 Tertiary NOT GIVENUNK [place] Insurance:SELF PAY Community [facility] Hospital Number: Effective Repository Date:2017-10-20 09/28/2017 SKYLER L [id number] Primary SKYLER L STYPEDOB: [place] [address] Insurance:MEDICARE [id number] PART A BPolicy Number: Hospital [address]864Bys: [id number] Repository [phone] Date:2017-09-28 () 09/28/2017 Secondary SKYLER L STYPEDOB: [place] Insurance:CIGNAPolicy [id number] Community Number: Hospital [id number] Repository Date:8261-74-66QS [address]XMRWJVVBYRC, [place] [address]WE: 09/28/2017 Tertiary NOT GIVENUNK [place] Insurance:SELF PAY Community [facility] Hospital Number: Effective Repository Date:2017-09-28 09/23/2017 SKYLER L [id number] Primary SKYLER L STYPEDOB: [place] [address] Insurance:MEDICARE [id number] PART A BPolicy Number: Hospital [id number]: [id number] Repository [phone] Date:2017-09-23 () 09/23/2017 Secondary SKYLER L STYPEDOB: [place] Insurance:CIGNAPolicy [id number] Community Number: Hospital [id number] Repository Date:0272-99-29EJ [address]SARNPOFOJKS, [place] [address]HO: 09/23/2017 Tertiary NOT GIVENUNK [place] Insurance:SELF PAY Community [facility] Hospital Number: Effective Repository Date:2017-09-23 09/20/2017 SKYLER L [id number] Primary SKYLER L STYPEDOB: [place] [address] Insurance:MEDICARE [id number] [address] PART A BPolicy Number: Hospital [id number]: [id number] Repository [phone] Date:2017-06-04 () 09/20/2017 Secondary SKYLER L STYPEDOB: [place] Insurance:CIGNAPolicy [id number] Community Number: Hospital [id number] Repository Date:4384-75-27IK [address]LPSDFDXVDTA, [place] [address]DR: 09/20/2017 Tertiary NOT GIVENUNK [place] Insurance:SELF PAY Community [facility]: Effective Repository Date:2017-08-31 09/11/2017 SKYLER L [id number] Primary SKYLER L STYPEDOB: [place] [address] Insurance:MEDICARE [id number] [address] PART A BPolicy Number: Hospital [id number]: [id number] Repository [phone] Date:2017-09-10 () 09/11/2017 Secondary SKYLER L STYPEDOB: [place] Insurance:CIGNAPolicy [id number] Community Number: Hospital [id number] Repository Date:4245-05-72KW [address]QCZGKHCJGPK, [place] [address]UE: 09/11/2017 Tertiary NOT GIVENUNK [place] Insurance:SELF PAY Community [facility] Hospital Number: Effective Repository Date:2017-09-11 09/11/2017 SKYLER L [id number] Primary SKYLER L STYPEDOB: [place] [address] Insurance:MEDICARE [id number] [address] PART A BPolicy Number: Hospital [id number]: [phone] [id number] Repository [phone] () Date:2017-09-10 09/11/2017 Secondary SKYLER L STYPEDOB: [place] Insurance:CIGNAPolicy [id number] Community Number: Hospital [id number] Repository Date:2726-40-34JJ [address]NZARMBESECU, [place] [address]LC: 09/11/2017 Tertiary NOT GIVENUNK [place] Insurance:SELF PAY Community [facility] Hospital Number: Effective Repository Date:2017-09-10 09/11/2017 SKYLER L [id number] Primary SKYLER L STYPEDOB: [place] [address] Insurance:MEDICARE [id number] [address] PART A BPolicy Number: Hospital [id number]: [id number] Repository [phone] Date:2017-09-10 () 09/11/2017 Secondary SKYLER L STYPEDOB: [place] Insurance:CIGNAPolicy [id number] Community Number: Hospital [id number] Repository Date:6229-76-18CB [address] [place] [address]IO: 09/11/2017 Tertiary NOT GIVENUNK [place] Insurance:SELF PAY Community [facility] Hospital Number: Effective Repository Date:2017-09-11 09/09/2017 Skyler L [id number] Primary Skyler L StypeDOB: [place] [address] Insurance:MEDICARE [id number] [address] PART A BPolicy Number: Hospital [address]Jvu: [id number] Repository [phone] Date:2017-09-09 () 09/09/2017 Secondary Skyler L StypeDOB: [place] Insurance:CIGNAPolicy [id number] Community Number: Hospital [id number] Repository Date:8503-32-87LR [address]SMGTUHNYIFQ, [place] [address]SJ: 09/09/2017 Tertiary NOT GIVENUNK [place] Insurance:SELF PAY Community [facility] Hospital Number: Effective Repository Date:2017-09-09 08/20/2017 Skyler L [id number] Primary Skyler L StypeDOB: [place] [address] Insurance:MEDICARE [id number] [address] PART A BPolicy Number: Hospital [address]Pwk: [id number] Repository [phone] Date:2017-06-04 () 08/20/2017 Secondary Skyler L StypeDOB: [place] Insurance:CIGNAPolicy [id number] Community Number: Hospital [id number] Repository Date:7371-12-47UH [address]KKEELLXDJYL, [place] [address]DN: 08/20/2017 Tertiary NOT GIVENUNK [place] Insurance:SELF PAY Community [facility] Hospital Number: Effective Repository Date:2017-08-02 08/18/2017 SKYLER L [id number] Primary SKYLER L STYPEDOB: [place] [address] Insurance:MEDICARE [id number] [address] PART A BPolicy Number: Hospital [id number]: (109) [id number] Repository [phone] () Date:2017-08-17 08/18/2017 Secondary SKYLER L STYPEDOB: [place] Insurance:CIGNAPolicy [id number] Community Number: [facility] [id number] Repository Date:7811-26-24II [address]UARCEOATZLK, [place] [address]VY: 08/18/2017 Tertiary NOT GIVENUNK [place] Insurance:SELF PAY Community [facility] Hospital Number: Effective Repository Date:2017-08-17 08/18/2017 Skyler L [id number] Primary Skyler L StypeDOB: [place] [address] Insurance:MEDICARE [id number] [address] PART A BPolicy Number: Hospital [address]36[address]Ugp: [id number] Repository [phone] Date:2017-08-17 () 08/18/2017 Secondary Skyler L StypeDOB: [place] Insurance:CIGNAPolicy [id number] Community Number: [facility] [id number] Repository Date:0236-66-40FE [address]GCDKWHLKZIA, [place] [address]RI: 08/18/2017 Tertiary NOT GIVENUNK [place] Insurance:SELF PAY Community [facility] Hospital Number: Effective Repository Date:2017-08-18 08/04/2017 Skyler L [id number] Primary Skyler L StypeDOB: [place] [address] Insurance:MEDICARE [id number] [address] PART A BPolicy Number: Hospital 22991Umb: [id number] Repository [phone] Date:2017-08-04 () 08/04/2017 Secondary Skyler L StypeDOB: [place] Insurance:CIGNAPolicy [id number] Community Number: Hospital [id number] Repository Date:7613-25-09AS [address]WLJRPNASJRQ, [place] [address]SD: 08/04/2017 Tertiary NOT GIVENUNK [place] Insurance:SELF PAY Community [facility] Hospital Number: Effective Repository Date:2017-08-04 07/28/2017 Skyler L [id number] Primary Skyler L StypeDOB: [place] [address] Insurance:MEDICARE [id number] [address] PART A BPolicy Number: Hospital 63164Zuu: [id number] Repository [phone] Date:2017-07-28 () 07/28/2017 Secondary Skyler L StypeDOB: [place] Insurance:CIGNAPolicy [id number] Community Number: Hospital [id number] Repository Date:1448-30-13BQ [address]TEXRZMEEFLP, [place] [address]DJ: 07/28/2017 Tertiary NOT GIVENUNK [place] Insurance:SELF PAY Community [facility] Hospital Number: Effective Repository Date:2017-07-28 07/22/2017 Skyler L [id number] Primary Skyler L StypeDOB: [place] [address] Insurance:MEDICARE [id number] [address] PART A BPolicy Number: Hospital [address]Czc: [id number] Repository [phone] Date:2017-06-04 () 07/22/2017 Secondary Skyler L StypeDOB: [place] Insurance:CIGNAPolicy [id number] Community Number: Hospital [id number] Repository Date:3970-03-01AV [address]URWGLRNYMBK, [place] [address]OM: 07/22/2017 Tertiary NOT GIVENUNK [place] Insurance:SELF PAY Community [facility] Hospital Number: Effective Repository Date:2017-07-02 07/21/2017 Skyler L [id number] Primary Skyler L StypeDOB: [place] [address] Insurance:MEDICARE [id number] Community [address] [place] [address] PART A BPolicy Number: Hospital [id number]: [id number] Repository [phone] Date:2017-07-20 () 07/21/2017 Secondary Skyler L StypeDOB: [place] Insurance:CIGNAPolicy [id number] Community Number: Hospital [id number] Repository Date:0619-47-77JJ [address]IIMSAWRHGBI, [place] [address]GJ: 07/21/2017 Tertiary NOT GIVENUNK [place] Insurance:SELF PAY Community [facility] Number: Effective Repository Date:2017-07-20 07/21/2017 Skyler L [id number] Primary Skyler L StypeDOB: [place] [address] Insurance:MEDICARE [id number] [address] PART A BPolicy Number: Hospital [address]Npn: [id number] Repository [phone] Date:2017-07-20 () 07/21/2017 Secondary Skyler L StypeDOB: [place] Insurance:CIGNAPolicy [id number] Community Number: Hospital [id number] Repository Date:7945-65-77MA [address]YSWAANOTVMH, [place] [address]VK: 07/21/2017 Tertiary NOT GIVENUNK [place] Insurance:SELF PAY Community [facility] Effective Repository Date:2017-07-21 07/13/2017 SKYLER L [id number] Primary SKYLER L STYPEDOB: [place] [address] Insurance:MEDICARE [id number] [address] PART A BPolicy Number: Hospital [address]Fzr: (772) [id number] Repository [phone] () Date:2017-07-13 07/13/2017 Secondary SKYLER L STYPEDOB: [place] Insurance:CIGNAPolicy [id number] Community Number: Hospital [id number] Repository Date:6147-42-81YF [address]YRYQOYAIXSR, [place] [address]SM: 07/13/2017 Tertiary NOT GIVENUNK [place] Insurance:SELF PAY Community [facility] Hospital Number: Effective Repository Date:2017-07-13 07/13/2017 Skyler L [id number] Primary Skyler L StypeDOB: [place] [address] Insurance:MEDICARE [id number] [address] PART A BPolicy Number: Hospital [id number]: [id number] Repository [phone] Date:2017-07-13 () 07/13/2017 Secondary Skyler L StypeDOB: [place] Insurance:CIGNAPolicy [id number] Community Number: Hospital [id number] Repository Date:5748-77-17JL [address]FHHTFSAOMIG, [place] [address]VJ: 07/13/2017 Tertiary NOT GIVENUNK [place] Insurance:SELF PAY Community [facility] Hospital Number: Effective Repository Date:2017-07-13 07/13/2017 Skyler L [id number] Primary Skyler L StypeDOB: [place] [address] Insurance:MEDICARE [id number] [address] PART A BPolicy Number: Hospital [address]Tvz: [id number] Repository [phone] Date:2017-07-13 () 07/13/2017 Secondary Skyler L StypeDOB: [place] Insurance:CIGNAPolicy [id number] Community Number: Hospital [id number] Repository Date:8040-59-50ZK [address]ARMXVZELKDE, [place] [address]ML: 07/13/2017 Tertiary NOT GIVENUNK [place] Insurance:SELF PAY Community [facility] Hospital Number: Effective Repository Date:2017-07-13 07/13/2017 Skyler L [id number] Primary Skyler L StypeDOB: [place] [address] Insurance:MEDICARE [id number] [address] PART A BPolicy Number: Hospital [id number]: [id number] Repository [phone] Date:2017-07-13 () 07/13/2017 Secondary Skyler L StypeDOB: [place] Insurance:CIGNAPolicy [id number] Community Number: Hospital [id number] Repository Date:6176-20-28PN [address]AKYTMBUUYAT [place] [address]FT: 07/13/2017 Tertiary NOT GIVENUNK [place] Insurance:SELF PAY Community [facility] Number: Effective Repository Date:2017-07-13 07/13/2017 Skyler L [id number] Primary Skyler L StypeDOB: [place] [address] Insurance:MEDICARE [id number] [address] PART A BPolicy Number: Hospital 708[address]Oyt: [id number] Repository [phone] Date:2017-07-13 () 07/13/2017 Secondary Skyler L StypeDOB: [place] Insurance:CIGNAPolicy [id number] Community Number: Hospital [id number] Repository Date:2630-51-76DS [address]FIPZIMHNWBW, [place] [address]OV: 07/13/2017 Tertiary NOT GIVENUNK [place] Insurance:SELF PAY Community [facility] Effective Repository Date:2017-07-13 07/13/2017 Skyler L [id number] Primary Skyler L StypeDOB: [place] [address] Insurance:MEDICARE [id number] [address] PART A BPolicy Number: Hospital [address]86[address]Zyi: [id number] Repository [phone] Date:2017-07-13 () 07/13/2017 Secondary Skyler L StypeDOB: [place] Insurance:CIGNAPolicy [id number] Community Number: Hospital [id number] Repository Date:4392-03-86AA [address]LWJXELZWJMV, [place] [address]LJ: 07/13/2017 Tertiary NOT GIVENUNK [place] Insurance:SELF PAY Community [facility] Number: Effective Repository Date:2017-07-13 07/13/2017 Skyler L [id number] Primary Skyler L StypeDOB: [place] [facility] Insurance:MEDICARE [id number] [facility] [address], [place] PART A BPolicy Number: Hospital [address]Iqm: [id number] Repository [phone] Date:2017-07-13 () 07/13/2017 Secondary Skyler L StypeDOB: [place] Insurance:CIGNAPolicy [id number] Community Number: Hospital [id number] Repository Date:4317-04-50QU [address]ZNPOFKOLLXI, [place] [address]KL: 07/13/2017 Tertiary NOT GIVENUNK [place] Insurance:SELF PAY Community [facility] Number: Effective Repository Date:2017-07-13 07/12/2017 Skyler L [id number] Primary Skyler L StypeDOB: [place] [facility] Insurance:MEDICARE [id number] [facility] [place] PART A BPolicy Number: Hospital [address]Lop: [id number] Repository [phone] Date:2017-06-29 () 07/12/2017 Secondary Skyler L StypeDOB: [place] Insurance:CIGNAPolicy [id number] Community Number: Hospital [id number] Repository Date:8811-78-32NV [address]NBFQKAGQRDY, [place] [address]GA: 07/12/2017 Tertiary NOT GIVENUNK [place] Insurance:SELF PAY Community [facility] Number: Effective Repository Date:2017-06-29 07/06/2017 SKYLER L STYPEDOB: Primary SKYLER L STYPEDOB: University Insurance:MedicarePoli [id number] [place] [address] cy Number: 3 [facility] Repository [address] # [id number] [address], [place] Date:Plan Name:Candis Prieto [address] [place] [address]Kxx: [phone]: (HP) [phone] () 07/06/2017 Secondary SKYLER L STYPEDOB: [place] Insurance:MedicarePoli [id number] [facility] cy Number: 3 [facility] Repository [id number] [address] # Date:Plan Name:Candis De La Garza [address] [place] [address]Irk: (HP) 07/06/2017 Tertiary SKYLER L STYPEDOB: [place] Insurance:[employer] [id number] Hospitals PlanPolicy Number: 3 [facility] Repository [id number] [address] # Date:1590-62-34Rw[address] Name:[facility] [address] [address]Naw: [phone] [place] [phone] (HP) [address]HS: 06/18/2017 Skyler L [id number] Primary Skyler L StypeDOB: [place] [facility] Insurance:MEDICARE [id number] PART A BPolicy Number: Hospital [address]Hyf: [id number] Repository [phone] Date:2017-06-04 () 06/18/2017 Secondary Skyler L StypeDOB: [place] Insurance:CIGNAPolicy [id number] Community Number: Hospital [id number] Repository Date:7200-26-22PO [address]KJRYEQEPMCJ [place] [address]EV: 06/18/2017 Tertiary NOT GIVENUNK [place] Insurance:SELF PAY Community [facility] Number: Effective Repository Date:2017-06-04 05/28/2017 Skyler L [id number] Primary Skyler L StypeDOB: [place] [facility] Insurance:MEDICARE [id number] [address] PART A BPolicy Number: Hospital [id number]: [id number] Repository [phone] Date:2014-04-02 () 05/28/2017 Secondary Skyler L StypeDOB: [place] Insurance:CIGNAPolicy [id number] Community Number: Hospital [id number] Repository Date:4112-38-88TV [address]OITZVVXBFEH, [place] [address]DL: 05/28/2017 Tertiary NOT GIVENKAILEE [place] Insurance:SELF PAY Community [facility] Number: Effective Repository Date:2017-05-03
== END ==
LOC: OLS.AVED 08:05
PROVIDERS: Visit Provider Family Medicine
DX: Z94.0 Kidney transplant status (principal)
CPT/HCPCS: 36415; 80048; 80197; 82040; 85027

== ENCOUNTER → 2018-04-20 07:05 | Outpatient (REF) | payer MEDICARE, OTHER, SELFPAY ==
[2018-04-20 09:18] LABS: Hematocrit 42.8 % (40-54); Hemoglobin 13.3 g/dl (13.0-16.5); Mean Corp Hgb Conc 31.1 g/gl (32-36); Mean Corpuscular Volume 80.5 fL (80-94); Mean Platelet Vol. 11.1 fl (6.2-12.0); Platelet Count 241 K/mm3 (150-450); RBC Distribution Width CV 15.7 % (11.6-14.6); RBC Distribution Width SD 46.3 fl (35.1-43.9); Red Blood Count 5.32 M/mm3 (4.6-6.2); White Blood Count 5.3 K/mm3 (4.4-11.0)
[2018-04-20 09:27] LABS: Anion Gap 8 (5-15); BUN 14 mg/dL (7-18); Calcium,Total 7.9 mg/dL (8.5-10.1); Chloride 108 mmol/L (98-107); Creatinine, Serum 1.55 mg/dL (0.70-1.30); EST Glomerular Filtration Rate 51 mL/min (>60); Est Glom Filt Rate - Afr Amer 61 mL/min (>60); Glucose 85 mg/dL (74-106); Potassium 3.7 mmol/L (3.5-5.1); Sodium Level 142 mmol/L (136-145)
[2018-04-20 09:29] LABS: Scan Indicated on CBC? Y/N NO
--- OUTSIDE RECORDS SUMMARY | 2018-07-22 09:54 | XMS RPT_ITS ---
:1965 Author Organization OHIP Support Name Relationship Address Phone COW Unavailable [address] + [place] [address] Patsolic, Suzanna Unavailable [address] + [place] [address] Stypjolie Cierra Unavailable [address] + [place] [address] COW Unavailable [address] + [place] [address] Patsolic, Suzanna Unavailable [address] + [place] [address] Stype Cierra Unavailable [address] + [place] [address] COW Unavailable [address] + [place] [address] Patsolic, Suzanna Unavailable [address] + [place] [address] Stype, Cierra Unavailable [address] + [place] [address] COW Unavailable [address] + [place] [address] Patsolic, Suzanna Unavailable [address] + [place] [address] Stype, Cierra Unavailable [address] + [place] [address] COW Unavailable [address] + [place] [address] Patsolic, Suzanna Unavailable [address] + [place] [address] Stypjolie Cierra Unavailable [address] + [place] [address] COW Unavailable [address] + [place] [address] Patsolic, Suzanna Unavailable [address] + [place] [address] Stype, Cierra Unavailable [address] + [place] [address] PATSOLICCOLIN Unavailable Unavailable + STYPEYOLI Unavailable Unavailable + COW Unavailable [address] + [place] [address] Patsolic, Suzanna Unavailable [address] + [place] [address] Stype, Cierra Unavailable [address] + [place] [address] COW Unavailable [address] + [place] [address] Patsolic, Suzanna Unavailable [address] + [place] [address] Stype, Cierra Unavailable [address] + [place] [address] COW Unavailable [address] + [place] [address] Patsolic, Suzanna Unavailable [address] + [place] [address] Stype, Cierra Unavailable [address] + [place] [address] COW Unavailable [address] + [place] [address] Patsolic, Suzanna Unavailable [address] + [place] [address] Stype, Cierra Unavailable [address] + [place] [address] COW Unavailable [address] + [place] [address] Patsolic, Suzanna Unavailable [address] + [place] [address] Stype, Cierra Unavailable [address] + [place] [address] COW Unavailable [address] + [place] [address] Patsolic, Suzanna Unavailable [address] + [place] [address] Stype, Cierra Unavailable [address] + [place] [address] PATSOLICMARINACOLIN Unavailable Unavailable + STYPEYOLI Unavailable Unavailable + COW Unavailable [address] + [place] [address] Patsolic, Suzanna Unavailable [address] + [place] [address] Stype, Cierra Unavailable [address] + [place] [address] COW Unavailable [address] + [place] [address] Patsolic, Suzanna Unavailable [address] + [place] [address] Stype, Cierra Unavailable [address] + [place] [address] COW Unavailable [address] + [place] [address] Patsolic, Suzanna Unavailable [address] + [place] [address] Stype, Cierra Unavailable [address] + [place] [address] COW Unavailable [address] + [place] [address] Patsolic, Suzanna Unavailable [address] + [place] [address] Stype, Cierra Unavailable [address] + [place] [address] COW Unavailable [address] + [place] [address] Patsolic, Suzanna Unavailable [address] + [place] [address] Stype, Cierra Unavailable [address] + [place] [address] + [place] [address] Patsolic, Suzanna Unavailable [address] + [place] [address] Stype, Cierra Unavailable [address] + [place] [address] + [place] [address] Patsolic, Suzanna Unavailable [address] + [place] [address] Stype, Cierra Unavailable [address] + [place] [address] + [place] [address] PATSOSUZANNA TAPIA (MEDICAL POA) Unavailable [address] + [place] [address] STYPE, CEIRRA Unavailable [address] + [place] [address] + [place] [address] PATSOSUZANNA TAPIA (MEDICAL POA) Unavailable [address] + [place] [address] STYPE, CIERRA Unavailable [address] + [place] [address] + [place] [address] PATSOSUZANNA TAPIA (MEDICAL POA) Unavailable [address] + [place] [address] STYPE, CIERRA Unavailable [address] + [place] [address] + [place] [address] PATSOLICSUZANNA (MEDICAL POA) Unavailable [address] + [place] [address] STYPE, CIERRA Unavailable [address] + [place] [address] + [place] [address] PATSOLICSUZANNA (MEDICAL POA) Unavailable [address] + [place] [address] STYPE, CIERRA Unavailable [address] + [place] [address] + [place] [address] PATSUZANNA LEE (MEDICAL POA) Unavailable [address] + [place] [address] STYPE, CIERRA Unavailable [address] + [place] [address] + [place] [address] PATSUZANNA LEE (MEDICAL POA) Unavailable [address] + [place] [address] STYPE, CIERRA Unavailable [address] + [place] [address] + [place] [address] PATSUZANNA LEE (MEDICAL POA) Unavailable [address] + [place] [address] STYPE, CIERRA Unavailable [address] + [place] [address] + [place] [address] Patsolic Suzanna Unavailable [address] + [place] [address] Stype, Cierra Unavailable [address] + [place] [address] + [place] [address] PATSOSUZANNA TAPIA (MEDICAL POA) Unavailable [address] + [place] [address] STYPE, CIERRA Unavailable [address] + [place] [address] COW Unavailable [address] + [place] [address] Patsolic, Suzanna Unavailable [address] + [place] [address] Stype, Cierra Unavailable [address] + [place] [address] + [place] [address] PATSOSUZANNA TAPIA (MEDICAL POA) Unavailable [address] + [place] [address] STYPE CIERRA Unavailable [address] + [place] [address] + [place] [address] PATSOSUZANNA TAPIA (MEDICAL POA) Unavailable [address] + [place] [address] STYPE, CIERRA Unavailable [address] + [place] [address] + [place] [address] PATSOSUZANNA TAPIA (MEDICAL POA) Unavailable [address] + [place] [address] STYPE, CIERRA Unavailable [address] + [place] [address] PATSOMARINA TAPIACOLIN Unavailable Unavailable + STYPEMARIANOYOLI Unavailable Unavailable + COW Unavailable [address] + [place] [address] PATSOSUZANNA TAPIA (MEDICAL POA) Unavailable [address] + [place] [address] STYPE CIERRA Unavailable [address] + [place] [address] + [place] [address] PATSOLICSUZANNA (MEDICAL POA) Unavailable [address] + [place] [address] STYPE, CIERRA Unavailable [address] + [place] [address] + [place] [address] PATSOLICSUZANNA (MEDICAL POA) Unavailable [address] + [place] [address] STYPE, CIERRA Unavailable [address] + [place] [address] + [place] [address] PATSOLICSUZANNA (MEDICAL POA) Unavailable [address] + [place] [address] STYPE, CIERRA Unavailable [address] + [place] [address] + [place] [address] PATSOLICSUZANNA (MEDICAL POA) Unavailable [address] + [place] [address] STYPE, CIERRA Unavailable [address] [phone] [place] [address] + [place] [address] PATSOLICSUZANNA (MEDICAL POA) Unavailable [address] + [place] [address] STYPE, CIERRA Unavailable [address] [phone] [place] [address] + [place] [address] PATSOLICSUZANNA (MEDICAL POA) Unavailable [address] + [place] [address] STYPE, CIERRA Unavailable [address] [phone] [place] [address] + [place] [address] PATSOLICSUZANNA (MEDICAL POA) Unavailable [address] + [place] [address] STYPE, CIERRA Unavailable [address] [phone] [place] [address] + [place] [address] PATSOLICSUZANNA (MEDICAL POA) Unavailable [address] + [place] [address] STYPE, CIERRA Unavailable [address] + [place] [address] + [place] [address] SUZANNA RUVALCABA (MEDICAL POA) Unavailable [address] + [place] [address] STYPE, CIERRA Unavailable [address] [phone] [place] [address] + [place] [address] STYPE, CIERRA Unavailable [address] [phone] [place] [address] + [place] [address] STYPE, CIERRA Unavailable [address] [phone] [place] [address] + [place] [address] SUZANNA RUVALCABA (MEDICAL POA) Unavailable [address] + [place] [address] STYPE, CIERRA Unavailable [address] + [place] [address] + [place] [address] STYPE, CIERRA Unavailable [address] [phone] [place] [address] + [place] [address] STYPE, CIERRA Unavailable [address] [phone] [place] [address] + [place] [address] STYPE, CIERRA Unavailable [address] [phone] [place] [address] + [place] [address] STYPE, CIERRA Unavailable [address] [phone] [place] [address] + [place] [address] STYPE, CIERRA Unavailable [address] [phone] [place] [address] + [place] [address] STYPE, CIERRA Unavailable [address] [phone] [place] [address] + [place] [address] SUZANNA RUVALCABA (MEDICAL POA) Unavailable [address] + [place] [address] STYPE, CIERRA Unavailable [address] + [place] [address] + [place] [address] STYPE, CIERRA Unavailable [address] [phone] [place] [address] + [place] [address] STYPE, CIERRA Unavailable [address] [phone] [place] [address] + [place] [address] STYPE, CIERRA Unavailable [address] [phone] [place] [address] + [place] [address] STYPE, CIERRA Unavailable [address] [phone] [place] [address] + [place] [address] STYPE, CIERRA Unavailable [address] [phone] [place] [address] + [place] [address] STYPE, CIERRA Unavailable [address] [phone] [place] [address] + [place] [address] CIERRA PINZON Unavailable [address] [phone] [place] [address] COLIN RUVALCABA Unavailable Unavailable + YOLI PINZON Unavailable Unavailable + COW Unavailable [address] + [place] [address] CIERRA PINZON Unavailable [address] [phone] [place] [address] + [place] [address] STCIERRA VERDUGO Unavailable [address] [phone] [place] [address] Care Team Providers Name Role Phone Mike Bella Attending Unavailable Jena, Mike Attending Unavailable Jena, Mike Attending Unavailable [...] Care Unavailable Jopperi, Ambrosio Admitting Unavailable Beantsil, [place] Attending Unavailable Jopperi, Ambrosio Admitting Unavailable Jopperi, Ambrosio Attending Unavailable Bella, Mike Primary Care Unavailable Jopperi, Ambrosio Consulting Unavailable Sementi, Keli Attending Unavailable White, Jesica Admitting Unavailable Bella, Mike Primary Care Unavailable Danielle, Cheng Consulting Unavailable Bakhous, Aziz Consulting Unavailable Sementi, Keli Consulting Unavailable Bella, Imke Primary Care Unavailable Jose Armando Mosqueda Attending [...] Unavailable Bella, Mike Primary Care Unavailable Jeannie, Rfaael Consulting Unavailable Bella, Mike Primary Care Unavailable [...] TYPE CONDITION / CODE ATTENDING STATUS SOURCE 05/25/2018 Unknown N18.9 - Chronic Mike Bella Active [place] kidney disease, Community unspecified / Hospital N18.9(ICD-10) Repository 05/13/2018 Unknown R53.83 - Other Mike Bella Active [place] fatigue / Community R53.83(ICD-10) Hospital Repository 05/13/2018 Unknown Z48.22 - Encounter Mike Bella Active [facility] for aftercare Community following kidney Hospital transplant / Repository Z48.22(ICD-10) 04/14/2018 Final diagnosis Kidney transplant Dr. Trina Rao (discharge) status / [facility] Z94.0(ICD-10) Repository 04/14/2018 Final diagnosis Disorder involving Dr. 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 Community R06.02(ICD-10) Hospital Repository 12/15/2017 Unknown I26.99 - Other Fredi Padilla, Active [place] pulmonary embolism D.O. Community without acute cor Hospital pulmonale / Repository I26.99(ICD-10) 11/23/2017 Final diagnosis [facility], Dr. Rasmussen [facility] (discharge) (primary) [facility] hypertension / Repository I10(ICD-10) 11/18/2017 Unknown J18.9 - Pneumonia, Ha Lyle Active [facility] unspecified E Community organism / Hospital J18.9(ICD-10) Repository 10/29/2017 Unknown R31.9 - Hematuria, JUSTIN WREN Active [facility] unspecified / Community R31.9(ICD-10) Hospital Repository 10/20/2017 Unknown R05 - Cough / Mike Bella Active [facility] R05(ICD-10) Community Hospital Repository 11/08/2017 Unknown J40 [...] 10/25/2017 Unknown N39.0 - Urinary Sementi, Active [facility] tract infection, [facility] site not specified Hospital / N39.0(ICD-10) Repository 07/06/2017 Final diagnosis Urinary tract Dr. Jeanne [facility] ([facility]charge[facility] infection, site [facility] Hospitals not specified / Repository N39.0(ICD-10) PROCEDURES PROCEDURES No Procedure Records FoundRESULTS RESULTS CBC-COMPLETE BLOOD CNT Collected: 05/18/2018 Status: F Source: [place] NO DIFF 6:20 AM [facility] REPOSITORY TYPE CODE TESTS RESULT OUT OF [...] MPV 11.4 Performed By: #### L100.0500 #### [facility] [place], [address] COMPREHENSIVE METABOLIC Collected: 05/18/2018 Status: F Source: [place] PROFIL 6:20 AM [facility] REPOSITORY TYPE CODE TESTS RESULT OUT OF [...] GAP 7 Performed By: #### L500.4050 #### [facility] [address]. [place], [place], [address] CBC-COMPLETE BLOOD CNT Collected: 05/11/2018 Status: F Source: [place] NO DIFF 5:45 AM [facility] REPOSITORY TYPE CODE TESTS RESULT OUT OF [...] MPV 10.5 Performed By: #### L100.0500 #### [facility] [address] [facility] [place], [address] RENAL PROFILE Collected: 05/11/2018 Status: F Source: [place] 5:45 AM [facility] REPOSITORY Order Comment: 127 TYPE CODE TESTS [...] CO2 22.0 Performed By: #### L500.3600 #### [facility] [address] [place], [place], [address] TACROLIMUS (PROGRAF) Collected: 05/11/2018 Status: F Source: [place] 5:45 AM [facility] REPOSITORY TYPE CODE TESTS RESULT OUT OF RANGE REFERENCE UNITS LAB L3380.1100 2.0-20.0 ng/mL Normal TACROLIMUS 7.4 Result Comment: Trough (immediately following transplant) 15.0 Trough (steady state, 2 weeks or more after transplant): 3.0 - 8.0 Detection Limit = 1.0 Performed by LC-MS/MS technology. Performed at: - [facility] [id number] [place] [employer]: Ivelisse Orourke MD, Phone: [phone] Performed By: #### L3380.1000 #### [facility] (refer to report for specific site) refer to report for address and phone number CBC-COMPLETE BLOOD CNT Collected: 05/04/2018 Status: F Source: [place] NO DIFF 5:40 AM [facility] REPOSITORY Order Comment: ROOM 127 TYPE CODE [...] MPV 10.6 Performed By: #### L100.0500 #### [facility] [address] [place], [place], [address] BASIC METABOLIC Collected: 05/04/2018 Status: F Source: [place] PROFILE (BMP) 5:40 AM [facility] REPOSITORY Order Comment: ROOM 127 TYPE CODE [...] GAP 8 Performed By: #### L500.2500 #### [facility] [address] [place], [address] CBC-COMPLETE BLOOD CNT Collected: 04/27/2018 Status: F Source: [place] NO DIFF 5:13 AM [facility] REPOSITORY Order Comment: 127 TYPE CODE TESTS [...] MPV 10.3 Performed By: #### L100.0500 #### [facility] [address] [place], [place], [address] BASIC METABOLIC Collected: 04/27/2018 Status: F Source: [place] PROFILE (BMP) 5:13 AM [facility] REPOSITORY Order Comment: 127 TYPE CODE TESTS [...] GAP 8 Performed By: #### L500.2500 #### [facility] [address] [facility] [place], [address] BASIC METABOLIC Collected: 04/20/2018 Status: F Source: [place] PROFILE (BMP) 7:05 AM [facility] REPOSITORY TYPE CODE TESTS RESULT OUT OF [...] GAP 8 Performed By: #### L500.2500 #### [facility] [address] [place], [place], [address] CBC-COMPLETE BLOOD CNT Collected: 04/20/2018 Status: F Source: [place] NO DIFF 7:05 AM [facility] REPOSITORY TYPE CODE TESTS RESULT OUT OF [...] MPV 11.1 Performed By: #### L100.0500 #### [facility] [address] [place], [address] ESTABLISHED VISIT Observed: 04/14/2018 Status: UNK Source: [facility] (NEPHROLOGY) 10:55 AM [facility] REPOSITORY Chief Complaint Post Kidney Transplant Follow Up History of Present Illness REFERRING DOCTOR: Dr. TOMASA HAN [phone] DEMOGRAPHICS: Ethnicity: Non- or Gender: Male PRIMARY [...] Updated By: Gardenia Ortega; 03/15/2018 10:30:05 AM Z-Mebf-Jdxjcrb 155-852-130 MG Oral Tablet; TAKE 1 TABLET [...] Hypertension; ADRIAN = N; Verified Transmission to [address]; Last Updated By: Areli Brasher; 06/25/2017 4:52:58 PM Mycophenolate Mofetil 250 MG Oral Capsule; TAKE 2 CAPSULE Twice daily Requested for: 31May2017; Last Rx:[id number] Ordered Rx By: Isac Thao; Dispense: 90 Days ; #:360 Capsule; Refill: 3;For: Immunosuppression, Kidney replaced by transplant; ADRIAN = N; Verified Transmission to [address] Tacrolimus 1 MG Oral Capsule; TAKE [...] 03/15/2018 10:17:01 AM Vitals Vital Signs Recorded: [id number] 10:06AM Bjwhytpnwai22.2 F, Oral Heart Lmvm298 Jkqjinfh901 Rzdpbrgkz50 Height6 ft 1 in Dhncva442 lb 3.2 oz BMI Zxofgznfxt57.3 BSA Calculated2.08 O2 Xevbmrshuw09, RA Physical Exam Constitutional: No acute distress, [...] F Source: [place] NO DIFF 8:05 AM [facility] REPOSITORY TYPE CODE TESTS RESULT OUT OF [...] MPV 10.9 Performed By: #### L100.0500 #### [facility] [address] [place], [place], [address] BASIC METABOLIC Collected: 04/13/2018 Status: F Source: [place] PROFILE (BMP) 8:05 AM [facility] REPOSITORY TYPE CODE TESTS RESULT OUT OF [...] 9 Performed By: #### L500.2500, L501.1800 #### [facility] [address] [place], [place], [address] ALBUMIN, SERUM Collected: 04/13/2018 Status: F Source: [place] 8:05 AM [facility] REPOSITORY TYPE CODE TESTS RESULT OUT OF RANGE REFERENCE UNITS LAB L501.1800 3.2-5.0 g/dL Normal ALB 3.4 Performed By: #### L500.2500, L501.1800 #### [facility] [address] [place], [place], [address] TACROLIMUS (PROGRAF) Collected: 04/13/2018 Status: F Source: [place] 8:05 AM [facility] REPOSITORY TYPE CODE TESTS RESULT OUT OF RANGE REFERENCE UNITS LAB L3380.1100 2.0-20.0 ng/mL Normal TACROLIMUS 5.2 Result Comment: Trough (immediately following transplant) 15.0 Trough (steady state, 2 weeks or more after transplant): 3.0 - 8.0 Detection Limit = 1.0 Performed by LC-MS/MS technology. Performed at: - [facility] [id number] [place] [employer]: Ivelisse Orourke MD, Phone: [phone] Performed By: #### L3380.1000 #### [facility] (refer to report for specific site) refer to report for address and phone number CBC-COMPLETE BLOOD CNT Collected: 04/06/2018 Status: F Source: [place] NO DIFF 7:00 AM [facility] REPOSITORY Order Comment: ROOM 127 TYPE CODE [...] MPV 11.3 Performed By: #### L100.0500 #### [facility] [address] [place], [place], [address] BASIC METABOLIC Collected: 04/06/2018 Status: F Source: [place] PROFILE ([facility]) 7:00 AM [facility] REPOSITORY Order Comment: ROOM 127 TYPE CODE [...] GAP 7 Performed By: #### L500.2500 #### [facility] [place], [address] BASIC METABOLIC Collected: 03/30/2018 Status: F Source: [place] PROFILE ([facility]) 6:45 AM [facility] REPOSITORY Order Comment: 127 TYPE CODE TESTS [...] GAP 8 Performed By: #### L500.2500 #### [facility] [address] [place], [place], [address] CBC-COMPLETE BLOOD CNT Collected: 03/30/2018 Status: F Source: [place] NO DIFF 6:45 AM [facility] REPOSITORY Order Comment: 127 TYPE CODE TESTS [...] MPV 11.0 Performed By: #### L100.0500 #### [facility] [address] [place], [address] BASIC METABOLIC Collected: 03/23/2018 Status: F Source: [place] PROFILE (BMP) 5:55 AM [facility] REPOSITORY Order Comment: 127 TYPE CODE TESTS [...] GAP 8 Performed By: #### L500.2500 #### [facility] [address] [place], [address] CBC-COMPLETE BLOOD CNT Collected: 03/23/2018 Status: F Source: [place] NO DIFF 5:55 AM [facility] REPOSITORY Order Comment: 127 TYPE CODE TESTS [...] MPV 11.6 Performed By: #### L100.0500 #### [facility] [address] [place], [place], [address] CBC-COMPLETE BLOOD CNT Collected: 03/16/2018 Status: F Source: [place] NO DIFF 5:55 AM [facility] REPOSITORY Order Comment: ROOM 127 TYPE CODE [...] MPV 11.4 Performed By: #### L100.0500 #### [facility] [address] [facility] [place], [place], [id number] RENAL PROFILE Collected: 03/16/2018 Status: F Source: [place] 5:55 AM [facility] REPOSITORY Order Comment: ROOM 127 TYPE CODE [...] CO2 24.0 Performed By: #### L500.3600 #### [facility] [address] [place], [address] TACROLIMUS (PROGRAF) Collected: 03/16/2018 Status: F Source: [place] 5:55 AM [facility] REPOSITORY Order Comment: ROOM 127 TYPE CODE TESTS RESULT OUT OF RANGE REFERENCE UNITS LAB L3380.1100 2.0-20.0 ng/mL Normal TACROLIMUS 7.1 Result Comment: Trough (immediately following transplant) 15.0 Trough (steady state, 2 weeks or more after transplant): 3.0 - 8.0 Detection Limit = 1.0 Performed by LC-MS/MS technology. Performed at: - [facility] [address] [id number] [place] Electronic: Ivelisse Orourke MD, Phone: [phone] Performed By: #### L3380.1000 #### [facility] (refer to report for specific site) refer to report for address and phone number ESTABLISHED VISIT Observed: 03/15/2018 Status: UNK Source: [place] (NEPHROLOGY) 11:51 AM [facility] REPOSITORY Chief Complaint [...] by mouth at bedtime; Therapy: 13Aug2016 to (Evaluate:76Oki1391) Requested for: 09Tyv8222; Last Rx:79Dcg3934 Ordered Rx By: Sara Rao; Dispense: 30 Days ; #:30 TAB; Refill: 11;For: Hypertension; ADRIAN = N; Verified Transmission to [address]; Last Updated By: Areli Brasher; 06/25/2017 4:52:58 PM Mycophenolate Mofetil 250 MG Oral Capsule; TAKE 2 CAPSULE Twice daily Requested for: 31May2017; Last Rx:07May2017 Ordered Rx By: Isac Thao; Dispense: 90 Days ; #:360 Capsule; Refill: 3;For: Immunosuppression, Kidney replaced by transplant; ADRIAN = N; Verified Transmission to [address] Tacrolimus 1 MG Oral Capsule; TAKE [...] Take 1 tablet daily; Therapy: 19Sep2017 to (Evaluate:61Rff0580) Recorded Dispense: 67 Days ; #:67 Tablet; Refill: 0; DARIAN = N; Record; Last Updated By: Jahaira Luis; 03/15/2018 10:21:32 AM Vitals Vital Signs Recorded: 15Mar2018 10:07AM Vwjvmhkkolh00 F, Oral Heart Zrbl557 Emzcpevy267 Stcqdwker91 Height6 ft 1 in Qiywgk191 lb 14.4 oz BMI Agbloryvus18.26 BSA Calculated2.08 O2 Nbnqjxxifm98, RA Physical Exam Constitutional: Abnormal uses a [...] No livedo reticularis. Lymphatic: No lymphadenopathy. Results/Data Pdreuyovvk32Urh6081 12:00AMPSara levy Test NameResultFlagReference FK506 Tacrolimus, Blood9.4 ng/mL2.0 - 15.0 NOTE: Result was obtained using a chemiluminescent microparticle immunoassay (CMIA) on the Hl7 Interface Developer i system. Optimal therapeutic ranges for immuno- suppressant drugs depend upon an individual ashu ent's current clinical state, type of organ transplant, time post-transplant, co- administration of other immunosuppressants, and other clinical factors. The results of this test should be correlated wit h additional clinical and laboratory data before changes in treatment regimens are made. Complete Blood Ztdzq63Lrj7476 08:18AMPSraa levy Test NameResultFlagReference White Blood Cell Count3.9 x10E9/LL4.4 - 11.3 Red Blood Cell Count5.04 x10E12/LSee Below Reference Range: 4.50 - 5.90 Nucleated Erythrocyte Count0.0 /100 WBC0.0-0.0 Tqlyyctega00.7 g/dLSee Below Reference Range: 13.5 - 17.5 HCT46.0 %See Below Reference Range: 41.0 - 52.0 MCV91 fL80 - 100 MCHC32.0 g/dLSee Below Reference Range: 32.0 - 36.0 Platelet Rovmo306 x10E9/L150 - 450 RDW-CV13.6 %See Below Reference Range: 11.5 - 14.5 Renal Function Usyel55Bbu0791 08:18AMPSara levy Test NameResultFlagReference Glucose, Serum68 mg/dLL74 - 99 Sodium, Tanxs365 mmol/L136 - 145 POTASSIUM4.0 mmol/L3.5 - 5.3 Chloride, Xcueh662 mmol/LH98 - 107 Bicarbonate, Serum23 mmol/L21 - 32 Anion Gap, Serum12 mmol/L10 - 20 Blood Urea Nitrogen, Serum21 mg/dL6 - 23 CREATININE1.56 mg/dLHSee Below Reference Range: 0.50 - 1.30 GFR Non Mgtfqobr94 mL/min/1.73m2A>60 GFR Rgfdapky43 mL/min/1.73m2A>60 CALCULATIONS OF ESTIMATED GFR ARE PERFORMED [...] PLAN: - I will have a social work administrator talk to sister -I will call to [...] F Source: [place] NO DIFF 6:15 AM [facility] REPOSITORY Order Comment: RM 127 TYPE CODE [...] MPV 10.8 Performed By: #### L100.0500 #### [facility] [address] [place], [place], [id number] BASIC METABOLIC Collected: 03/09/2018 Status: F Source: M[place]VIN PROFILE (BMP) 6:15 AM [facility] REPOSITORY Order Comment: RM 127 TYPE CODE [...] GAP 10 Performed By: #### L500.2500 #### [facility] [address] [place], [place], [id number] CBC-COMPLETE BLOOD CNT Collected: 03/02/2018 Status: F Source: MELVIN NO DIFF 6:20 AM [facility] REPOSITORY Order Comment: ROOM 127 TYPE CODE [...] MPV 10.5 Performed By: #### L100.0500 #### [facility] [address] [place], [address] BASIC METABOLIC Collected: 03/02/2018 Status: F Source: MELVIN PROFILE (BMP) 6:20 AM [facility] REPOSITORY Order Comment: ROOM 127 TYPE CODE [...] GAP 7 Performed By: #### L500.2500 #### [facility] [address] [place], [address] EMERGENCY DEPARTMENT Observed: 02/24/2018 Status: F Source: MELVIN SUMMARY 3:35 AM [facility] REPOSITORY [facility] Medical Records Department [address] [place] [address] Emergency Department Summary 02/24/18 0131 MR#: [id number] Acct: [id number] Name: SKYLER PINZON Rep #: [id number] : 1965 52 From: Vania Sullivan MD PCP: Mike Bella MD Status: DEP ER - ER Visit Summary Date of Service: 02/24/18 Chief Complaint: Decreased urine output History of Present Illness: The patient is a 52 M sent in from [facility] for decreased urine output. Patient gets straight [...] RBCs. Emergency Department Course and Treatment: [address] was placed by nursing staff. One [...] 2. Cystitis This note was generated with NxThera dictation software. It may contain incorrect words, [...] problems, contact your Primary Care Provider. Call [facility] ([phone]) or report to the closest Emergency Room. Call 911 if necessary. 02/24/18 033 <Electronically signed by Vania Sullivan MD> Date Vania Sullivan MD Cosigner Signature (If Indicated): Date CC: Mike Bella MD DISCHARGE INSTRUCTION Observed: 02/24/2018 Status: F Source: POLK 1:32 AM [facility] REPOSITORY [facility] Medical Records Department [address] [place] [address] [place] [address] Discharge Instruction 02/24/18130 MR#: [id number] Acct: [id number] Name: SKYLER PINZON Rep #: [id number] : 1965 52 From: Vania Sullivan MD [...] your Primary Care Provider. Call [facility] ([phone]) or report to the closest Emergency Room. Call 911 if necessary. 02/24/18131 <Electronically signed by Vania Sullivan MD> Date Vania Sullivan MD Cosigner Signature (If Indicated): Date CC: Mike Bella MD URINALYSIS, COMPLETE Collected: 02/24/2018 Status: F Source: MELVIN 12:50 AM [facility] REPOSITORY Order Comment: Order Date: 02/24/18 Has [...] URINE SEEN Performed By: #### L400.0001 #### [facility] [address] [place], [address] Observed: 02/24/2018 Status: F Source: [place] CULTURE, URINE 12:50 AM [facility] REPOSITORY Order Date: 02/24/18 Urine Culture ORGANISM 1: Staphylococcus epidermidis [place] Count >100,000 Staphylococcus epidermidis: REACTION Benzylpenicillin NF >=0.5 R Cefoxitin *NF + Inducable Clindamycin [place]istan - Gentamicin $ <=0.5 S Levofloxacin $ 0.5 S Linezolid $$$$ 1 S Nitrofurantoin $ <=16 S Oxacillin NF >=4 R Rifampin $$ <=0.5 S Tetracycline NF 2 S Vancomycin $ 1 S (NF) indicates non-formulary drug at [facility]. Approval by Infectious Disease Specialist required before non-formulary drugs may be ordered and/or dispensed. * CLSI guidelines does not recommend testing of cephalosporins. This interpretation is deduced from Beta-lactam/penicillin results. Performed By: #### M100.0650 #### [facility] [address] [place], [address] CBC W/DIFF, AUTOMATED Collected: 02/24/2018 Status: F Source: POLK 12:19 AM [facility] REPOSITORY TYPE CODE TESTS RESULT OUT OF [...] Lymph 1.58 Performed By: #### L100.0100 #### [facility] [address] [place], [address] BASIC METABOLIC Collected: 02/24/2018 Status: F Source: MELVIN PROFILE (BMP) 12:19 AM [facility] REPOSITORY TYPE CODE TESTS RESULT OUT OF [...] GAP 8 Performed By: #### L500.2500 #### [facility] [address] [place], [address] CBC-COMPLETE BLOOD CNT Collected: 02/23/2018 Status: F Source: MELVIN NO DIFF 7:45 AM [facility] REPOSITORY TYPE CODE TESTS RESULT OUT OF [...] MPV 11.3 Performed By: #### L100.0500 #### [facility] [address] [place], [address] BASIC METABOLIC Collected: 02/23/2018 Status: F Source: [place] PROFILE (BMP) 7:45 AM [facility] REPOSITORY TYPE CODE TESTS RESULT OUT OF [...] GAP 7 Performed By: #### L500.2500 #### [facility] [address] [place], [place], [address] CBC-COMPLETE BLOOD CNT Collected: 02/16/2018 Status: F Source: [place] NO DIFF 5:35 AM [facility] REPOSITORY Order Comment: 127 TYPE CODE TESTS [...] MPV 11.3 Performed By: #### L100.0500 #### [facility] [address] [facility]. [place], [place], [address] BASIC METABOLIC Collected: 02/16/2018 Status: F Source: [place] PROFILE (BMP) 5:35 AM [facility] REPOSITORY Order Comment: 127 TYPE CODE TESTS [...] GAP 8 Performed By: #### L500.2500 #### [facility] [address] [place], [place], [address] BASIC METABOLIC Collected: 02/09/2018 Status: F Source: [place] PROFILE (BMP) 6:05 AM [facility] REPOSITORY Order Comment: ROOM 120 TYPE CODE [...] GAP 8 Performed By: #### L500.2500 #### [facility] [address] [place], [address] CBC-COMPLETE BLOOD CNT Collected: 02/09/2018 Status: F Source: MELVIN NO DIFF 6:05 AM [facility] REPOSITORY Order Comment: ROOM 120 TYPE CODE [...] MPV 10.3 Performed By: #### L100.0500 #### [facility] [address] [facility] [place], [address] Observed: 02/09/2018 Status: F Source: [place] CULTURE, URINE 12:00 AM [facility] REPOSITORY Urine Culture Culture exhibits no growth. Performed By: #### M100.0650 #### [facility] [facility] [place], [address] DISCHARGE SUMMARY Observed: 02/04/2018 Status: F Source: MELVIN 6:21 PM [facility] REPOSITORY [facility] Medical Records Department [facility] [place] [address] Discharge Summary 01/25/18 1729 MR#: [id number] Acct: [id number] Name: SKYLER PINZON Rep #: [id number] : 1965 52 From: Mikey Rianldi MD PCP: Mike Bella MD Status: DIS IN Y Location: [address] ADDENDUM by Mikey Rinaldi MD on 02/04/18 at 1821 Code Visit Discharge to [facility] [place] 02/01/2018. 02/04/18 1821 <Electronically signed by Mikey [...] for rehabilitation, strengthening, prior to discharge to fpc. Urine culture grew [facility] possible enterococcus, discharge [...] kidney in his right pelvis. Discharge to [facility]. Discharge Diet: No Restrictions Discharge Activity: [...] (Choose all that apply): None applicable 01/25/18 3519 <Electronically signed by Mikey Rinaldi MD> Date Mikey Rinaldi MD Cosigner Signature (if applicable): Date CC: Mike Bella MD; Mikey Rinaldi MD Signed CBC-COMPLETE BLOOD CNT Collected: 02/02/2018 Status: F Source: [place] NO DIFF 5:45 AM [facility] REPOSITORY Order Comment: 127 TYPE CODE TESTS [...] MPV 10.5 Performed By: #### L100.0500 #### [facility] [address] [place], [place], [address] BASIC METABOLIC Collected: 02/02/2018 Status: F Source: MELVIN PROFILE (BMP) 5:45 AM [facility] REPOSITORY Order Comment: 127 TYPE CODE TESTS [...] GAP 7 Performed By: #### L500.2500 #### [facility] [address] [place], [address] CBC W/DIFF, AUTOMATED Collected: 01/31/2018 Status: F Source: POLK 5:25 AM [facility] REPOSITORY TYPE CODE TESTS RESULT OUT OF [...] Lymph 0.79 Performed By: #### L100.0100 #### [facility] [address] [facility] [place], [address] BASIC METABOLIC Collected: 01/31/2018 Status: F Source: MEL[place]IN PROFILE (BMP) 5:25 AM [facility] REPOSITORY TYPE CODE TESTS RESULT OUT OF [...] GAP 8 Performed By: #### L500.2500 #### [facility] [address] [facility] [place] [place], [address] DISCHARGE INSTRUCTION Observed: 01/28/2018 Status: F Source: MELVIN 2:10 PM [facility] REPOSITORY [facility] Medical Records Department [address] [place] [address] Instructions for Home/Discharge Instructions 01/25/18 1727 MR#: [id number] Acct: [id number] Name: SKYLER PINZON Rep #: [id number] : 1965 52 From: Mikey Rinaldi MD PCP: Mike Bella MD Status: ADM IN ADDENDUM by Mikey Rinaldi MD on 01/28/18 at 1410 Discharge to [facility] [place] 01/31/2018 skilled for straight cathing. 01/28/18 1410 Date Mikey Rinaldi MD cc: Nakul Crenshaw MD; Mike Bella MD; Cheng Santos MD * Signed ADDENDUM by Mikey Rinaldi MD on 01/28/18 at 1407 Discharge to [facility] [place] 01/30/2018 skilled for straight cathing. 01/28/18 1407 [...] 2 weeks. Proposed Discharge Date: 01/29/18 01/25/18 9959 <Electronically signed by Mikey Rinaldi MD> Date Mikey Rinaldi MD CC: Nakul Crenshaw MD; Mike Bella MD; Cheng Santos MD TRANSFER TO [facility] Observed: 01/28/2018 Status: F Source: [facility] 2:09 PM [facility] REPOSITORY [facility] Medical Records Department [address] [place] [address] Transfer to [facility] MR#: [id number] Acct: [id number] Name: SKYLER PINZON Rep #: [id number] : 1965 52 From: Mikey Rinaldi MD PCP: Mike Bella MD Status: ADM IN SKYLER PINZON [id number] (Patient) (Health Ins. Claim No.) (Day of Discharge to Facility) Certification of patient admission REQUIRED AT TIME OF ADMISSION. I CERTIFY THAT POST-HOSPITAL ECF SERVICES ARE REQUIRED TO BE GIVEN ON AN IN-PATIENT BASIS BECAUSE OF THE ABOVE NAMED PATIENT'S NEED FOR HALF-WAY CARE ON A CONTINUING BASIS FOR THE [...] 01/27/2018 Status: F Source: MELVIN 10:28 AM [facility] REPOSITORY [facility] Medical Records Department [address] [place] [address] Consultation 01/27/18 1026 MR#: [id number] Acct: [id number] Name: SKYLER PINZON Rep #: [id number] : 1965 52 From: Cheng Santos MD PCP: Mike Bella MD Status: ADM IN Y Location: [place] [address] Problem List (1) Urinary tract infection Status: [...] F Source: MELVIN AND/OR ERECT 11:09 AM [facility] REPOSITORY [facility] Imaging Services [address] [place], [place] [address] [employer] Decub and/or Erect MR#: [id number] Acct: [id number] Name: SKYLER PINZON Rep #: [id number] : 1965 M 52 From: Manolo Julian MD PCP: Mike Bella MD Status: ADM IN Study: Abd Inc Decub and/or Erect Date of Exam: 01/26/18 Exam# [id number] Ordering Dr: Mikey Rinaldi MD STUDY: X-RAY [...] Manolo Julian MD at 12:56 EDT Tel [phone], Service support , CC: Mike Bella MD; Mikey Rinaldi MD Senior Credit Analyst: Signed BASIC METABOLIC Collected: 01/24/2018 Status: F Source: MELVIN PROFILE (BMP) 5:30 AM [facility] REPOSITORY TYPE CODE TESTS RESULT OUT OF [...] 7 Performed By: #### L500.2500, L501.9940 #### [facility] [address] [place], [address] PSA,TOTAL- DIAGNOSTIC Collected: 01/24/2018 Status: F Source: POLK 5:30 AM [facility] REPOSITORY TYPE CODE TESTS RESULT OUT OF RANGE REFERENCE UNITS LAB L501.9940 0.0-4.0 ng/mL PSA, Normal DIAGNOSTIC 1.97 Result Comment: This test was performed using the TPSA assay method for the TORCH.sh chemistry system. Values obtained with different assay methods cannot be used interchangably. When changing PSA assays in the course of monitoring a patient, additional sequential testing should be carried out to confirm baseline values. Performed By: #### L500.2500, L501.9940 #### [facility] [address] [facility] [place], [address] URINALYSIS, COMPLETE Collected: 01/23/2018 Status: F Source: POLK 6:55 PM [facility] REPOSITORY Order Comment: Microscopic field is filled. [...] URINE SEEN Performed By: #### L400.0001 #### [facility] [address] [facility] [place], [address] Observed: 01/23/2018 Status: F Source: [place] CULTURE, URINE 6:55 PM [facility] REPOSITORY Urine Culture ORGANISM 1: Enterococcus faecium [place] Count >100,000 Enterococcus faecium: REACTION Ampicillin $ >=32 R Benzylpenicillin NF >=64 R Ciprofloxacin $ >=8 R Gentamicin SYN-S S Levofloxacin $ >=8 R Linezolid $$$$ 2 S Nitrofurantoin $ 64 I Streptomycin $ SYN-S S Tetracycline NF >=16 R Vancomycin $ <=0.5 S (NF) indicates non-formulary drug at [facility]. Approval by Infectious Disease Specialist required before non-formulary drugs may be ordered and/or dispensed. * CLSI guidelines does not recommend testing of cephalosporins. This interpretation is deduced from Beta-lactam/penicillin results. Performed By: #### M100.0650 #### [facility] [address] [place], [place], [address] ABDOMEN SINGLE VIEW Observed: 01/22/2018 Status: F Source: POLK 12:30 PM [facility] REPOSITORY [facility] Imaging Services [address] [place] [address] Abdomen Single View MR#: [id number] Acct: [id number] Name: SKYLER PINZON Rep #: [id number] : 1965 M 52 From: Sean Rojas MD PCP: Mike Bella MD Status: ADM IN Study: Abdomen Single View Date of Exam: 01/22/18 Exam# [id number] Ordering Dr: Mikey Rinaldi MD STUDY: X-RAY [...] CC: Mike Bella MD; Mikey Rinaldi MD Senior Credit Analyst: Signed RENAL PROFILE Collected: 01/21/2018 Status: F Source: MELVIN 5:20 AM [facility] REPOSITORY TYPE CODE TESTS RESULT OUT OF [...] CO2 26.0 Performed By: #### L500.3600 #### [facility] [place], [address] CBC W/DIFF, AUTOMATED Collected: 01/21/2018 Status: F Source: POLK 5:20 AM [facility] REPOSITORY TYPE CODE TESTS RESULT OUT OF [...] Lymph 0.99 Performed By: #### L100.0100 #### [facility] [address] [place], [address] TACROLIMUS (PROGRAF) Collected: 01/21/2018 Status: F Source: POLK 5:20 AM [facility] REPOSITORY TYPE CODE TESTS RESULT OUT OF RANGE REFERENCE UNITS LAB L3380.1100 2.0-20.0 ng/mL Normal TACROLIMUS 6.4 Result Comment: Trough (immediately following transplant) 15.0 Trough (steady state, 2 weeks or more after transplant): 3.0 - 8.0 Detection Limit = 1.0 Performed by LC-MS/MS technology. Performed at: [facility] [id number] [place] Electronic: Renan Soares MD, Phone: [phone] Performed By: #### L3380.1000 #### [facility] (refer to report for specific site) refer to report for address and phone number CONSULTATION Observed: 01/20/2018 Status: F Source: POLK 12:37 PM [facility] REPOSITORY [facility] Medical Records Department [address] [place] [address] Consultation 01/20/18 1234 MR#: [id number] Acct: [id number] Name: SKYLER PINZON Rep #: [id number] : 1965 52 From: Nakul Crenshaw MD PCP: Mike Bella MD Status: ADM IN Y Location: [facility] TCU13-1 Problem List (1) Recurrent sepsis due [...] Status: F Source: MELVIN (DIPSTICK) 12:00 PM [facility] REPOSITORY Order Comment: Diagnosis: cloudy, foul odor, [...] 25 ESTERASE Performed By: #### L400.2010 #### [facility] [address] [place], [address] Observed: 01/18/2018 Status: F Source: MELVIN CULTURE, URINE 12:00 PM [facility] REPOSITORY Order Date: 01/18/18 Urine Culture Culture exhibits no growth. Performed By: #### M100.0650 #### [facility] [address] [place], [address] HISTORY AND PHYSICAL Observed: 01/17/2018 Status: F Source: POLK EXAM 8:21 AM [facility] REPOSITORY [facility] Medical Records Department [address] [place] [address] History and Physical 01/16/182014 MR#: [id number] Acct: [id number] Name: SKYLER PINZON Rep #: [id number] : 1965 52 From: Mikey Rinaldi MD PCP: Mike Bella MD Status: ADM IN Location: [place] [address] Problem List (1) Urinary tract infection Status: [...] for rehabilitation, strengthening, prior to discharge to fpc. The patient is a 52 year old Male with below past medical history presented to [facility] Emergency Department 01/11/2018 with abdominal pain. 01/11/2018 CT abdomen and pelvis, distended urinary bladder, cystitis, mild hydronephrosis right pelvis transplant kidney, marked hydronephrosis marshall kidneys, small bowel obstruction, moderate stool in [...] Crenshaw. Kidney function back to baseline. Consider fpc after short term rehab. C. Diff NEGATIVE. 01/16/2018 Admit to TCU with debility, here for rehabilitation, strengthening, prior to placement in fpc if possible. Past Medical History Past Medical [...] for rehabilitation, strengthening, prior to discharge to fpc. * Debility - PT/OT. * Pain - [...] 01/16/2018 Status: F Source: MELVIN 8:35 PM [facility] REPOSITORY [facility] Imaging Services [address] [place] [address] Abdomen Single View MR#: [id number] Acct: [id number] Name: SKYLER PINZON Rep #: [id number] : 1965 M 52 From: Andrzej Liu MD PCP: Mike Bella MD Status: ADM IN Study: Abdomen Single View Date of Exam: 01/16/18 Exam# [id number] Ordering Dr: Mikey Rinaldi MD STUDY: X-RAY [...] CC: Mike Bella MD; Mikey Rinaldi MD Senior Credit Analyst: Signed DISCHARGE SUMMARY Observed: 01/16/2018 Status: F Source: MELVIN 11:38 AM [facility] REPOSITORY [facility] Medical Records Department [address] [place] [address] Discharge Summary 01/16/18 0749 MR#: [id number] Acct: [id number] Name: SKYLER PINZON Rep #: [id number] : 1965 52 From: Jesica Russo PCP: Mike Bella MD Status: ADM IN Y Location: [place] [address] Discharge Date and Diagnosis - Problem List Patient Problems: Active and Suspected Problems (Last Reviewed 12/22/17 @ 11:28 by Siria Harp BUSINESS EDUCATION TEACHER-C) Sepsis (Acute) PRISCILLA (acute kidney injury) (Acute) Date of Admission: 01/11/18 Date of Discharge: 01/16/18 - Primary Discharge Diagnosis Active and Suspected Problems (Last Reviewed 12/22/17 @ 11:28 by Siria Harp BUSINESS EDUCATION TEACHER-C) (1) Acute Sepsis secondary to Suspected Acute [...] Reviewed 12/22/17 @ 11:28 by Siria Harp BUSINESS EDUCATION TEACHER-C) Pulmonary embolism (Chronic) Pulmonary infiltrate present on [...] on xarelto regimen who presented to the [facility] ED on 01/11/18 with history of ongoing [...] as marked hydroureter and hydronephrosis of the marshall ureters and kidneys increased compared to prior CT, small bowel ileus with no evidence of bowel obstruction with moderate stool in the colon per recommendation of Dr. Cuevas, current marine propulsion technician Urologist. Amenable to d/c ga catheter and [...] as marked hydroureter and hydronephrosis of the marshall ureters and kidneys increased compared to prior [...] within 2-4 weeks w/ your team. Disposition: [facility] facility Minutes spent on discharge:: 35 Patient Condition:: Fair Medical Necessity - Tobacco Use Smoking Status: Never smoker Tobacco Use: Non-smoker Meaningful Use Info Meaningful Use Diagnoses (Choose all that apply): None applicable Code Visit Inpatient E AND M: 26695 Disch Hosp 01/16/18 1138 <Electronically signed by Jesica Russo > Date Jesica Russo Cosigner Signature (if applicable): Date CC: Jesica Russo; Mike Bella MD Signed TRANSFER TO EXTENDED Observed: 01/16/2018 Status: F Source: [facility] 7:49 AM [facility] REPOSITORY [facility] Medical Records Department [address] [place] [address] Transfer to Extended Care MR#: [id number] Acct: [id number] Name: SKYLER PINZON Rep #: [id number] : 1965 52 From: Jesica Russo PCP: Mike Bella MD Status: ADM IN SKYLER PINZON George (Patient) (Health Ins. Claim No.) (Day of Discharge to Facility) Certification of patient admission REQUIRED AT TIME OF ADMISSION. I CERTIFY THAT POST-HOSPITAL ECF SERVICES ARE REQUIRED TO BE GIVEN ON AN IN-PATIENT BASIS BECAUSE OF THE ABOVE NAMED PATIENT'S NEED FOR HALF-WAY CARE ON A CONTINUING BASIS FOR THE [...] your team. 01/16/18 0749 <Electronically signed by eJsica Russo > Date Jesica Russo CC: Lauren Cuevas MD; Mike Bella MD Signed RENAL PROFILE Collected: 01/15/2018 Status: F Source: MELVIN 6:55 AM [facility] REPOSITORY TYPE CODE TESTS RESULT OUT OF [...] CO2 22.0 Performed By: #### L500.3600 #### [facility] [address] [place], [place], [address] CBC W/DIFF, AUTOMATED Collected: 01/15/2018 Status: F Source: POLK 6:55 AM [facility] REPOSITORY TYPE CODE TESTS RESULT OUT OF [...] Lymph 0.84 Performed By: #### L100.0100 #### [facility] [address] [facility] [place], [address] Observed: 01/14/2018 Status: F Source: POLK CDIFF (MOLECULAR) 12:05 PM [facility] REPOSITORY Is the patient receiving laxatives? N New/unexplained onset of 3 or more stools in past 24 hrs? Y Cdiff-Molecular C. Diff DNA Negative- No toxigenic C. Diff DNA Detected NAAT METHOD Testing was performed using nucleic acid amplification Performed By: #### M100.6796 #### [facility] [address] [facility] [place], [address] CBC W/DIFF, AUTOMATED Collected: 01/14/2018 Status: F Source: POLK 6:10 AM [facility] REPOSITORY TYPE CODE TESTS RESULT OUT OF [...] Lymph 0.71 Performed By: #### L100.0100 #### [facility] [address] [place], [address] BASIC METABOLIC Collected: 01/14/2018 Status: F Source: POLK PROFILE ([facility]) 6:10 AM [facility] REPOSITORY TYPE CODE TESTS RESULT OUT OF [...] GAP 9 Performed By: #### L500.2500 #### [facility] [place], [address] CBC W/DIFF, AUTOMATED Collected: 01/13/2018 Status: F Source: POLK 7:50 AM [facility] REPOSITORY TYPE CODE TESTS RESULT OUT OF [...] LYMPHOPENIA NOTED. Performed By: #### L100.0100 #### [facility] [address] [facility] [place], [address] BASIC METABOLIC Collected: 01/13/2018 Status: F Source: MELVIN PROFILE (BMP) 7:50 AM [facility] REPOSITORY TYPE CODE TESTS RESULT OUT OF [...] GAP 10 Performed By: #### L500.2500 #### [facility] [address] [place], [address] Observed: 01/12/2018 Status: F Source: MELVIN CULTURE, URINE 11:35 AM [facility] REPOSITORY Has pt arrived? Y Urine Culture Culture exhibits no growth. Performed By: #### M100.0650 #### [facility] [address] [place], [place], [address] Observed: 01/12/2018 Status: F Source: MELVIN CULTURE, BLOOD (WB) 11:14 AM [facility] REPOSITORY Has pt arrived? Y BC No growth in 5 days. Performed By: #### M200.1000 #### [facility] [address] [place], [address] Observed: 01/12/2018 Status: F Source: MELVIN CULTURE, BLOOD (WB) 11:10 AM [facility] REPOSITORY Has pt arrived? Y BC No growth in 5 days. Performed By: #### M200.1000 #### [facility] [address] [place], [address] CBC W/DIFF, AUTOMATED Collected: 01/12/2018 Status: F Source: MELVIN 5:58 AM [facility] REPOSITORY TYPE CODE TESTS RESULT OUT OF [...] Lymph 0.64 Performed By: #### L100.0100 #### [facility] [address] [facility] [place], [address] BASIC METABOLIC Collected: 01/12/2018 Status: F Source: MELVIN PROFILE (BMP) 5:58 AM [facility] REPOSITORY TYPE CODE TESTS RESULT OUT OF [...] GAP 9 Performed By: #### L500.2500 #### [facility] [address] [place] [place], [address] HISTORY AND PHYSICAL Observed: 01/11/2018 Status: F Source: MELVIN EXAM 7:46 PM [facility] REPOSITORY [facility] Medical Records Department [address] [place] [address] History and Physical 01/11/18 1901 MR#: [id number] Acct: [id number] Name: SKYLER PINZON Rep #: [id number] : 1965 52 From: Jesica Russo PCP: Mike Bella MD Status: ADM IN Y Location: [place] [address] Problem List (1) Acute UTI Status: Acute [...] on xarelto regimen who presents to the [facility] on 01/11/18 with history of ongoing [...] as marked hydroureter and hydronephrosis of the marshall ureters and kidneys increased compared to prior [...] on xarelto regimen who presents to the [facility] on 01/11/18 with history of ongoing [...] noted. Code Visit Inpatient E AND M: 89121 Init Hosp L3 01/11/181945 <Electronically signed by Jesica Russo > Date Jesica George Rafaela Cosigner Signature: Date (if applicable) CC: Jesica Russo; Mike Bella MD Signed EMERGENCY DEPARTMENT Observed: 01/11/2018 Status: F Source: POLK SUMMARY 7:11 PM [facility] REPOSITORY [facility] Medical Records Department [address] [place] [address] Emergency Department Summary 01/11/18 1554 MR#: [id number] Acct: [id number] Name: SKYLER PINZON Rep #: [id number] : 1965 52 From: Ga Hollingsworth MD [...] UTI, ileus, This note was generated with NxThera dictation software. It may contain incorrect words, [...] your Primary Care Provider. Call [facility] ([phone]) or report to the closest Emergency Room. Call 911 if necessary. 01/11/181910 <Electronically signed by Ga Hollingsworth MD> Date Ga Hollingsworth MD Cosigner Signature (If Indicated): Date CC: Mike Bella MD LACTIC ACID Collected: 01/11/2018 Status: F Source: POLK 7:10 PM [facility] REPOSITORY Order Comment: Yes/No query for Sepsis Lactate Rule Y TYPE CODE TESTS RESULT OUT OF RANGE REFERENCE UNITS LAB L503.6005 0.4-2.0 mmol/L Normal LACTIC ACID 0.7 Performed By: #### L503.6005 #### [facility] [address] [facility] [place], [address] ABDOMEN/PELVIS WITHOUT Observed: 01/11/2018 Status: F Source: MELVIN CONT 3:55 PM [facility] REPOSITORY [facility] Imaging Services [address] [facility] [place] [address] Abdomen/Pelvis without Cont MR#: [id number] Acct: [id number] Name: SKYLER PINZON Rep #: [id number] : 1965 M 52 From: Vania Miramontes MD PCP: Mike Bella MD Status: REG Study: Abdomen/Pelvis without Cont Date of Exam: 01/11/18 Exam# [id number] Ordering Dr: Ga Hollingsworth MD STUDY: CT [...] unremarkable. The adrenal glands are unremarkable. The marshall kidneys are markedly atrophic with cortical thinning and numerous cysts. 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 There is a transplant kidney in [...] is marked hydroureter and hydronephrosis of the marshall ureters and kidneys, increased compared to the prior CT. There is small bowel ileus. There is no evidence of bowel obstruction. There is moderate stool in the colon. There is no ascites, free air or significant lymphadenopathy. Electronically Signed: Vania Miramontes MD at 16:50 EDT Tel Direct: [phone], Service support , CC: Ga Hollingsworth MD; Mike Bella MD Senior Credit Analyst: Signed BASIC METABOLIC Collected: 01/11/2018 Status: F Source: MELVIN PROFILE (BMP) 3:50 PM [facility] REPOSITORY TYPE CODE TESTS RESULT OUT OF [...] GAP 12 Performed By: #### L500.2500 #### [facility] [address] [place], [place], [address] CBC W/DIFF, AUTOMATED Collected: 01/11/2018 Status: F Source: MELVIN 3:50 PM [facility] REPOSITORY TYPE CODE TESTS RESULT OUT OF [...] Lymph 0.64 Performed By: #### L100.0100 #### [facility] [address] [place], [place], [address] LIPASE Collected: 01/11/2018 Status: F Source: MELVIN 3:50 PM [facility] REPOSITORY TYPE CODE TESTS RESULT OUT OF RANGE REFERENCE UNITS LAB L501.2450 73-393 U/L Normal LIPASE 230 Performed By: #### L501.2450 #### [facility] [address] [place], [place], [address] LIVER PROFILE Collected: 01/11/2018 Status: F Source: MELVIN 3:50 PM [facility] REPOSITORY TYPE CODE TESTS RESULT OUT OF [...] BILI 0.12 Performed By: #### L500.3400 #### [facility] [address] [facility] [place], [address] MAGNESIUM Collected: 01/11/2018 Status: F Source: MELVIN 3:50 PM [facility] REPOSITORY TYPE CODE TESTS RESULT OUT OF RANGE REFERENCE UNITS LAB L501.5200 1.6-2.6 mg/dL Normal MG 2.0 Performed By: #### L501.5200 #### [facility] [address] [place], [place], [address] URINALYSIS, COMPLETE Collected: 01/11/2018 Status: F Source: EMLVIN 2:43 PM [facility] REPOSITORY Order Comment: Microscopic field is filled. [...] URINE SEEN Performed By: #### L400.0001 #### [facility] [address] [facility] [place], [place], [address] PULMONARY VISIT REPORT Observed: 12/22/2017 Status: F Source: POLK 12:01 PM [facility] REPOSITORY [facility] of [address] [place], [place] [address] OFFICE VISIT Date of Service: 12/22/17 MR#: [id number] Acct: [id number] Name: SKYLER PINZON Rep #: [id number] : 1965 Provider: Siria Harp Age/Sex: 52/M Location: [facility] [place] Status: Signed Assessment AND Plan 1. 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 [place], [place], [address] RENAL PROFILE Collected: 12/20/2017 Status: F Source: POLK 7:46 AM [facility] REPOSITORY TYPE CODE TESTS RESULT OUT OF [...] CO2 21.0 Performed By: #### L500.3600 #### [facility] [address] [place], [address] TACROLIMUS (PROGRAF) Collected: 12/20/2017 Status: F Source: POLK 7:46 AM [facility] REPOSITORY TYPE CODE TESTS RESULT OUT OF RANGE REFERENCE UNITS LAB L3380.1100 2.0-20.0 ng/mL Normal TACROLIMUS 4.8 Result Comment: Trough (immediately following transplant) 15.0 Trough (steady state, 2 weeks or more after transplant): 3.0 - 8.0 Detection Limit = 1.0 Performed by -MS/MS technology. Performed at: - [facility] [address] [id number] [place] Electronic: Renan Soares MD, Phone: [phone] Performed By: #### L3380.1000 #### [facility] (refer to report for specific site) refer to report for address and phone number CHEST WITHOUT Observed: 12/11/2017 Status: F Source: POLK CONTRAST 6:56 AM [facility] REPOSITORY [facility] Imaging Services [address] [place] [place] [address] Chest without Contrast MR#: [id number] Acct: [id number] Name: SKYLER PINZON Rep #: [id number] : 1965 M 52 From: Claudia Chatman PCP: Mike Bella MD Status: REG CLI Study: Chest without Contrast Date of Exam: 12/11/17 Exam# [id number] Ordering Dr: Fredi Padilla DO STUDY: CT [...] CC: Fredi Padilla D.O.; Mike Bella MD Senior Credit Analyst: Signed PULMONARY VISIT REPORT Observed: 12/10/2017 Status: F Source: POLK 7:54 AM [facility] REPOSITORY [facility] of [address] [place] [address] OFFICE VISIT Date of Service: 12/09/17 MR#: [id number] Acct: [id number] Name: SKYLER PINZON Rep #: [id number] : 1965 Provider: Fredi Padilla D.O. Age/Sex: 52/M [facility] Status: Signed Assessment AND Plan 1. Shortness [...] EMERGENCY DEPARTMENT Observed: 12/07/2017 Status: F Source: POLK SUMMARY 3:48 PM [facility] REPOSITORY [facility] Medical Records Department [address] [place] [address] Emergency Department Summary 12/07/17 1542 MR#: [id number] Acct: [id number] Name: SKYLER PINZON Rep #: [id number] : 1965 52 From: Ambrosio Munguia DO [...] tract infection This note was generated with NxThera dictation software. It may contain incorrect words, [...] your Primary Care Provider. Call [facility] ([phone]) or report to the closest Emergency Room. Call 911 if necessary. 12/07/17 1548 <Electronically signed by Ambrosio Munguia DO> Date Ambrosio Munguia DO Cosigner Signature (If Indicated): Date CC: Mike Bella MD Observed: 12/07/2017 Status: F Source: POLK CULTURE, URINE 1:49 PM [facility] REPOSITORY Order Date: 12/07/17 Has pt arrived? 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 Approval by Infectious Disease Specialist required before non-formulary drugs may be ordered and/or dispensed. Performed By: #### M100.0650 #### [facility] [place], [address] URINALYSIS, COMPLETE Collected: 12/07/2017 Status: F Source: POLK 1:45 PM [facility] REPOSITORY Order Comment: Order Date: 12/07/17 Has [...] URINE SEEN Performed By: #### L400.0001 #### [facility] [address] [place], [place], [address] Observed: 12/07/2017 Status: F Source: MELVIN CULTURE, BLOOD (WB) 1:35 PM [facility] REPOSITORY No growth in 5 days. Performed By: #### M200.1000 #### [facility] [place], [place], [address] Observed: 12/07/2017 Status: F Source: MELVIN CULTURE, BLOOD (WB) 1:35 PM [facility] REPOSITORY No growth in 5 days. Performed By: #### M200.1000 #### [facility] [place], [place], [address] CBC W/DIFF, AUTOMATED Collected: 12/07/2017 Status: F Source: POLK 1:25 PM [facility] REPOSITORY TYPE CODE TESTS RESULT OUT OF [...] Lymph 0.96 Performed By: #### L100.0100 #### [facility] [address] [place], [address] COMPREHENSIVE METABOLIC Collected: 12/07/2017 Status: F Source: [facility] 1:25 PM [facility] REPOSITORY TYPE CODE TESTS RESULT OUT OF [...] GAP 7 Performed By: #### L500.4050 #### [facility] [address] [place], [place], [address] LACTIC ACID Collected: 12/07/2017 Status: F Source: MELVIN 1:25 PM [facility] REPOSITORY Order Comment: Yes/No query for Sepsis Lactate Rule Y TYPE CODE TESTS RESULT OUT OF RANGE REFERENCE UNITS LAB L503.6005 0.4-2.0 mmol/L Normal LACTIC ACID 1.0 Performed By: #### L503.6005 #### [facility] [address] [place], [address] CHEST PA AND LATERAL Observed: 12/07/2017 Status: F Source: MELVIN 1:10 PM [facility] REPOSITORY [facility] Imaging Services [address] [place] [address] Chest PA and Lateral MR#: [id number] Acct: [id number] Name: SKYLER PINZON Rep #: [id number] : 1965 M 52 From: López Wong MD PCP: Mike Bella MD Status: REG ER Study: Chest PA and Lateral Date of Exam: 12/07/17 Exam# [id number] Ordering Dr: Ambrosio Munguia DO STUDY: X-RAY [...] CC: Ambrosio Munguia DO; Mike Bella MD Senior Credit Analyst: Signed ESTABLISHED VISIT Observed: 11/23/2017 Status: UNK [...] pt, has had outpatient CT scan (? [place]). + hoarseness Has had multiple rounds [...] ADRIAN = N; Verified Transmission to [facility] [address] [place] [address]; Last Updated By: Areli Brasher; 06/25/2017 4:52:58 PM Mycophenolate Mofetil 250 MG Oral Capsule; TAKE 2 CAPSULE Twice daily Requested for: 31May2017; Last Rx:07May2017 Ordered Rx By: Isac Thao; Dispense: 90 Days ; #:360 Capsule; Refill: 3;For: Immunosuppression, Kidney replaced by transplant; ADRIAN = N; Verified Transmission to [address] Tacrolimus 1 MG Oral Capsule; TAKE [...] 07/06/2017 9:10:37 AM Vitals Vital Signs Recorded: 06Bas0365 10:32AM Jlpenrkyaif15.9 F, Oral Heart Rasz804 Bcrtfflw502 Iquaghmnt39 Height6 ft 1 in Tucren151 lb 3.2 oz BMI Cokoxfbfai57.91 BSA Calculated2.06 O2 Qtbdijgunp78, RA Physical Exam Awake, alert, no distress [...] bedtime; Therapy: 13Aug2016 to (Evaluate:20Jun2018) Requested for: 82Zib7594; Last Rx:[id number] Ordered Mycophenolate Mofetil 250 MG Oral Capsule; [...] F Source: MELVIN NO DIFF 7:58 AM [facility] REPOSITORY TYPE CODE TESTS RESULT OUT OF [...] MPV 10.0 Performed By: #### L100.0500 #### [facility] [address] [place], [address] RENAL PROFILE Collected: 10/21/2017 Status: F Source: POLK 7:58 AM [facility] REPOSITORY TYPE CODE TESTS RESULT OUT OF [...] CO2 25.0 Performed By: #### L500.3600 #### [facility] [address] [place], [address] TACROLIMUS (PROGRAF) Collected: 10/21/2017 Status: F Source: POLK 7:58 AM [facility] REPOSITORY TYPE CODE TESTS RESULT OUT OF RANGE REFERENCE UNITS LAB L3380.1100 2.0-20.0 ng/mL Normal TACROLIMUS 6.4 Result Comment: Trough (immediately following transplant) 15.0 Trough (steady state, 2 weeks or more after transplant): 3.0 - 8.0 Detection Limit = 1.0 Performed by LC-MS/MS technology. Performed at: [facility] [id number] [place] Electronic: Renan Soares MD, Phone: [phone] Performed By: #### L3380.1000 #### [facility] (refer to report for specific site) refer to report for address and phone number CHEST PA AND LATERAL Observed: 10/20/2017 Status: F Source: POLK 11:14 AM [facility] REPOSITORY [facility] Imaging Services [address] [place] [address] Chest PA and Lateral MR#: [id number] Acct: [id number] Name: SKYLER PINZON Rep #: [id number] : 1965 M 52 From: Renato Lawson DO PCP: Mike Bella MD Status: REG CLI Study: Chest PA and Lateral Date of Exam: 10/20/17 Exam# [id number] Ordering Dr: Mike Bella MD STUDY: X-RAY [...] Renato Lawson DO at 18:13 EDT Tel [phone], Service support , CC: Mike Bella MD Senior Credit Analyst: Signed 12 LEAD ELECTROCARDIOGRAM Observed: 10/18/2017 Status: F Source: POLK 8:37 AM [facility] REPOSITORY [facility] Cardiovascular Services [address] [facility] [place] [address] 12 Lead EKG 09/29/17 0006 MR#: [id number] Acct: [id number] Name: SKYLER PINZON Rep #: [id number] : 1965 52 From: Dylan Reid MD [...] Normal ECG Confirmed by DYLAN REID ([id number]), editor in chief newspaper IRAM CONKLIN ([id number]) on 10/11/2017 5:50:29 PM Referred By: SHAWANDA Confirmed By:DYLAN REID 10/11/17 1750 Date Dylan Reid MD CC: Liam Pelayo MD; Mike Bella MD Signed EMERGENCY DEPARTMENT Observed: 09/29/2017 Status: F Source: POLK SUMMARY 2:03 AM [facility] REPOSITORY [facility] Medical Records Department [address] [place] [address] Emergency Department Summary 09/29/17 020 MR#: [id number] Acct: [id number] Name: SKYLER PINZON Rep #: [id number] : 1965 52 From: Liam Pelayo MD [...] Chronic cough This note was generated with NxThera dictation software. It may contain incorrect words, [...] your Primary Care Provider. Call [facility] ([phone]) or report to the closest Emergency Room. Call 911 if necessary. 09/29/17202 <Electronically signed by Liam Pelayo MD> Date Liam Pelayo MD Cosigner Signature (If Indicated): Date CC: Mike Bella MD DISCHARGE INSTRUCTION Observed: 09/29/2017 Status: F Source: MELVIN 2:03 AM [facility] REPOSITORY [facility] Medical Records Department [address] [place] [address] Discharge Instruction 09/29/17202 MR#: [id number] Acct: [id number] Name: SKYLER PINZON Rep #: [id number] : 1965 52 From: Liam Pelayo MD [...] your Primary Care Provider. Call [facility] ([phone]) or report to the closest Emergency Room. Call 911 if necessary. 09/29/17202 <Electronically signed by Liam Pelayo MD> Date Liam Pelayo MD Cosigner Signature (If Indicated): Date CC: Mike Bella MD CBC W/DIFF, AUTOMATED Collected: 09/29/2017 Status: F Source: MELVIN 12:10 AM [facility] REPOSITORY TYPE CODE TESTS RESULT OUT [...] Lymph 1.00 Performed By: #### L100.0100 #### [facility] [address] [place], [place], [address] BASIC METABOLIC Collected: 09/29/2017 Status: F Source: MELVIN PROFILE (BMP) 12:10 AM [facility] REPOSITORY TYPE CODE TESTS RESULT OUT OF [...] 8 Performed By: #### L500.2500, L501.4010 #### [facility] [address] [facility] [place], [place], [address] TROPONIN-I Collected: 09/29/2017 Status: F Source: POLK 12:10 AM [facility] REPOSITORY TYPE CODE TESTS RESULT OUT OF RANGE REFERENCE UNITS LAB L501.4010 <0.045 ng/mL Normal < 0.015 TROPONIN-I Result Comment: TROPONIN-I EXPECTED VALUES <0.045 Negative 0.045 - 0.590 Consistent with Cardiac Damage > OR = 0.600 Critical Value Not every elevated troponin is indicative of DC. These values should be used with clinical judgement in examining the patient's clinical picture for diagnosis. To establish a diagnosis of DC versus myocardial injury, there must be a demonstrated rise and/or fall in the troponin values, in addition to ischemic symptoms, EKG changes, new regional wall motion abnormality, and/or angiographical evidence. PLEASE NOTE: REFERENCE RANGES EDITED 17 Performed By: #### L500.2500, L501.4010 #### [facility] [address] [facility] [place], [address] CHEST PA AND LATERAL Observed: 09/28/2017 Status: F Source: MELVIN 11:53 PM [facility] REPOSITORY [facility] Imaging Services [address] [place] [address] Chest PA and Lateral MR#: [id number] Acct: [id number] Name: SKYLER PINZON Rep #: [id number] : 1965 M 52 From: Renan Marin MD PCP: Mike Bella MD Status: REG ER Study: Chest PA and Lateral Date of Exam: 09/29/17 Exam# [id number] Ordering Dr: Liam Pelayo MD STUDY: X-RAY CHEST REASON FOR EXAM: Male, 52 years old. Cough TECHNIQUE: Frontal and lateral views of the chest. COMPARISON: 09/23/2017 FINDINGS: Pulmonary hyperinflation without acute alveolar disease. There is no demonstrated pleural abnormality. Normal size heart. Normal mediastinum and alotn. Normal visualized pulmonary arteries. Normal visualized aortic [...] CC: Liam Pelayo MD; Mike Bella MD Senior Credit Analyst: Signed CHEST PA AND LATERAL Observed: 09/23/2017 Status: F Source: MELVIN 3:51 PM [facility] REPOSITORY [facility] Imaging Services [address] [place] [address] Chest PA and Lateral MR#: [id number] Acct: [id number] Name: SKYLER PINZON Rep #: [id number] : 1965 M 52 From: Hans Wong MD PCP: Mike Bella MD Status: REG CLI Study: Chest PA and Lateral Date of Exam: 09/23/17 Exam# [id number] Ordering Dr: Mike Bella MD STUDY: X-RAY [...] Service support , CC: Mike Bella MD Senior Credit Analyst: Signed CBC-COMPLETE BLOOD CNT Collected: 09/20/2017 Status: F Source: MELVIN NO DIFF 8:01 AM [facility] REPOSITORY TYPE CODE TESTS RESULT OUT OF [...] MPV 10.6 Performed By: #### L100.0500 #### [facility] [address] [facility] [place], [place], [address] RENAL PROFILE Collected: 09/20/2017 Status: F Source: POLK 8:01 AM [facility] REPOSITORY TYPE CODE TESTS RESULT OUT OF [...] CO2 25.0 Performed By: #### L500.3600 #### [facility] [address] [facility] [place], [address] TACROLIMUS (PROGRAF) Collected: 09/20/2017 Status: F Source: MELVIN 8:01 AM [facility] REPOSITORY TYPE CODE TESTS RESULT OUT OF RANGE REFERENCE UNITS LAB L3380.1100 2.0-20.0 ng/mL Normal TACROLIMUS 9.3 Result Comment: Trough (immediately following transplant) 15.0 Trough (steady state, 2 weeks or more after transplant): 3.0 - 8.0 Detection Limit = 1.0 Performed by LC-MS/MS technology. Performed at: - [facility] [address] [id number] [place] Electronic: Renan Soares MD, Phone: [phone] Performed By: #### L3380.1000 #### [facility] (refer to report for specific site) refer to report for address and phone number 12 LEAD ELECTROCARDIOGRAM Observed: 09/14/2017 Status: F Source: MELVIN 1:32 PM [facility] REPOSITORY [facility] Cardiovascular Services [address] [place] [address] 12 Lead EKG 09/10/17 2308 MR#: [id number] Acct: [id number] Name: SKYLER PINZON Rep #: [id number] : 1965 52 From: Rolf Mon MD Attending Dr: Teresa Thrasher Status: DIS IN Ordering Dr: Vania Sullivan MD Date: 09/10/17 Location: [facility] Sex: M C Admitted: 09/11/17 Test Reason : Blood Pressure : / mmHG Vent. Rate : 098 BPM Atrial Rate : 098 BPM P-R Int : 128 ms QRS Dur : 084 ms QT Int : 362 ms P-R-T Axes : 042 002 050 degrees QTc Int : 462 ms Normal sinus rhythm Normal ECG Confirmed by ROLF MON MD ([id number]), editor in chief newspaper IRAM CONKLIN ([id number]) on 09/14/2017 1:32:09 PM Referred By: Ha Lyle Confirmed By:ROLF MON MD 09/14/17 1332 Date Rolf Mon MD CC: Teresa Thrasher; Vania Sullivan MD; Mike Bella MD Signed CONSULTATION Observed: 09/12/2017 Status: F Source: POLK 6:34 AM [facility] REPOSITORY [facility] Medical Records Department [address] [place] [address] Consultation 09/11/17 0603 MR#: [id number] Acct: [id number] Name: SKYLER PINZON Rep #: [id number] : 1965 52 From: Fredi Padilla DO PCP: Mike Bella MD Status: DIS IN Y Location: [facility] [id number] Reason for Consult Date of Consultation: 09/11/17 [...] my perspective. This note was generated with NxThera dictation software. It may contain incorrect words, spelling, and punctuation that were not noted in checking the note before signing. Code Visit Inpatient Jolie AND M: 03400 Init Hosp L3 09/12/17 0634 <Electronically signed by Fredi Padilla DO> Date Fredi Padilla DO Cosigner Signature (if applicable): Date CC: Fredi Padilla D.O.; Mike Bella MD Signed DISCHARGE SUMMARY Observed: 09/11/2017 Status: F Source: POLK 2:17 PM [facility] REPOSITORY [facility] Medical Records Department [address] [place] [address] Discharge Summary 09/11/17 1253 MR#: [id number] Acct: [id number] Name: SKYLER PINZON Rep #: [id number] : 1965 52 From: Bharti REGAN PCP: Mike Bella MD Status: ADM IN Y Location: [facility] [id number] <Bharti Aly - Last Filed: 09/11/17 13:08> [...] 25 Code Visit OBSV E AND M: 46102 Observ/hosp same date L1 09/11/17 1308 <Electronically signed by Bharti REGAN> Date Bharti REGAN 09/11/17 1417<Electronically signed by Teresa Thrasher MD> Cosigner Signature (if applicable): Date Teresa Thrasher MD CC: JASS Aly; Teresa Thrasher; Mike Bella MD Signed DISCHARGE INSTRUCTION Observed: 09/11/2017 Status: F Source: MELVIN 12:53 PM [facility] REPOSITORY [facility] Medical Records Department [address] [place] [address] Instructions for Home/Discharge Instructions 09/11/17 1251 MR#: [id number] Acct: [id number] Name: SKYLER PINZON Rep #: [id number] : 1965 52 From: Bharti REGAN PCP: [...] Status: F Source: MELVIN CONTRAST 7:25 AM [facility] REPOSITORY [facility] Imaging Services [address] [place] [address] Chest without Contrast MR#: [id number] Acct: [id number] Name: SKYLER PINZON Rep #: [id number] : 1965 M 52 From: Teodoro Patterson PCP: Mike Bella MD Status: ADM IN Study: Chest without Contrast Date of Exam: 09/11/17 Exam# [id number] Ordering Dr: Fredi Padilla DO STUDY: CT [...] CC: Fredi Padilla D.O.; Mike Bella MD Senior Credit Analyst: Signed BASIC METABOLIC Collected: 09/11/2017 Status: F Source: MELVIN PROFILE (BMP) 6:40 AM [facility] REPOSITORY TYPE CODE TESTS RESULT OUT OF [...] GAP 8 Performed By: #### L500.2500 #### [facility] [address] [place], [address] CBC W/DIFF, AUTOMATED Collected: 09/11/2017 Status: F Source: POLK 6:40 AM [facility] REPOSITORY TYPE CODE TESTS RESULT OUT OF [...] Lymph 1.15 Performed By: #### L100.0100 #### [facility] [address] [facility] [place], [address] EMERGENCY DEPARTMENT Observed: 09/11/2017 Status: F Source: POLK SUMMARY 1:43 AM [facility] REPOSITORY [facility] Medical Records Department [address] [place] [address] Emergency Department Summary 09/11/17 0005 MR#: [id number] Acct: [id number] Name: SKYLER PIZNON Rep #: [id number] : 1965 52 From: Vania Sullivan MD [...] renal transplant This note was generated with Graceful Tablesation software. It may contain incorrect words, spelling, [...] your Primary Care Provider. Call [facility] ([phone]) or report to the closest Emergency Room. Call 911 if necessary. 09/11/17 0143 <Electronically signed by Vania Sullivan MD> Date Vania Sullivan MD Cosigner Signature (If Indicated): Date CC: Mike Bella MD HISTORY AND PHYSICAL Observed: 09/11/2017 Status: F Source: POLK EXAM 12:52 AM [facility] REPOSITORY [facility] Medical Records Department [address] [place] [address] History and Physical 09/11/17 0008 MR#: [id number] Acct: [id number] Name: SKYLER PINZON Rep #: [id number] : 1965 52 From: Jesica Russo PCP: [...] with nodular components who presents to the [facility] ED on 09/11/17 with history of recently [...] and recent PE who presents to the [facility] ED on 09/11/17 with history of recently [...] Time: 16 minutes. Code Visit Inpatient GLO: 00613 Init Hosp L3 Procedures: 64983 Advncd Care Plan 30 Min 09/11/17 0052 <Electronically signed by Jesica Russo > Date Jesica Russo Cosigner Signature: Date (if applicable) CC: Jesica Russo; Mike Bella MD Signed Observed: 09/11/2017 Status: F Source: POLK RESPIRATORY PANEL 12:50 AM [facility] MOLECULAR REPOSITORY RP PANEL Normal Reference Range [...] HUMAN META Performed By: #### M100.638 #### [facility] [address] [place], [address] MAGNESIUM Collected: 09/11/2017 Status: F Source: MELVIN 12:00 AM [facility] REPOSITORY TYPE CODE TESTS RESULT OUT OF RANGE REFERENCE UNITS LAB L501.5200 1.6-2.6 mg/dL Normal MG 1.7 Performed By: #### L501.5200 #### [facility] [address] [place], [address] Observed: 09/10/2017 Status: F Source: MELVIN CULTURE, BLOOD (WB) 11:25 PM [facility] REPOSITORY BC No growth in 5 days. Performed By: #### M200.1000 #### [facility] [address] [place], [address] CBC W/DIFF, AUTOMATED Collected: 09/10/2017 Status: F Source: MELVIN 11:10 PM [facility] REPOSITORY TYPE CODE TESTS RESULT OUT OF [...] Lymph 0.75 Performed By: #### L100.0100 #### [facility] [address] [place], [place], [address] BASIC METABOLIC Collected: 09/10/2017 Status: F Source: MELVIN PROFILE (BMP) 11:10 PM [facility] REPOSITORY TYPE CODE TESTS RESULT OUT OF [...] GAP 7 Performed By: #### L500.2500 #### [facility] [address] [place], [address] URINALYSIS, COMPLETE Collected: 09/10/2017 Status: F Source: MELVIN 11:10 PM [facility] REPOSITORY Order Comment: Order Date: 09/10/17 COLOR OF URINE MAY AFFECT DIPSTICK RESULTS. How was Urine Obtained? BRICK CHIMNEY SUPERVISOR TO SPECIFY TYPE CODE TESTS RESULT OUT [...] URINE SEEN Performed By: #### L400.0001 #### [facility] [address] [place] [address], [id number] LACTIC ACID Collected: 09/10/2017 Status: F Source: MELVIN 11:10 PM [facility] REPOSITORY Order Comment: Yes/No query for Sepsis Lactate Rule Y TYPE CODE TESTS RESULT OUT OF RANGE REFERENCE UNITS LAB L503.6005 0.4-2.0 mmol/L Normal LACTIC ACID 0.9 Performed By: #### L503.6005 #### [facility]. [facility] [id number] Observed: 09/10/2017 Status: F Source: MELVIN CULTURE, BLOOD (WB) 11:10 PM [facility] REPOSITORY BC No growth in 5 days. Performed By: #### M200.1000 #### [facility] [address] [facility]. [place], [place], [id number] CHEST 1 VIEW Observed: 09/10/2017 Status: F Source: MELVIN (PORTABLE) 10:47 PM [facility]IT[facility] Imaging Services [address] [place] [address] Chest 1 View (Portable) MR#: [id number] Acct: [id number] Name: SKYLER PINZON Rep #: [id number] : 1965 M 52 From: López Wong MD PCP: Mike Bella MD Status: REG ER Study: Chest 1 View (Portable) Date of Exam: 09/10/17 Exam# [id number] Ordering Dr: Vania Sullivan MD STUDY: X-RAY [...] CC: Vania Sullivan MD; Mike Bella MD Senior Credit Analyst: Signed CHEST PA AND LATERAL Observed: 09/09/2017 Status: F Source: MELVIN 12:03 PM [facility] REPOSIT[facility] Imaging Services [address] [place] [address] Chest PA and Lateral MR#: [id number] Acct: [id number] Name: SKYLER PINZON Rep #: [id number] : 1965 M 52 From: López Wong MD PCP: Mike Bella MD Status: REG CLI Study: Chest PA and Lateral Date of Exam: 09/09/17 Exam# [id number] Ordering Dr: Ha Lyle MD STUDY: X-RAY [...] CC: Ha Lyle MD; Mike Bella MD Senior Credit Analyst: Signed 12 LEAD ELECTROCARDIOGRAM Observed: 08/22/2017 Status: F Source: POLK 8:55 PM [facility] REPOSITORY [facility] Cardiovascular Services [facility] [place] [address] 12 Lead EKG 08/17/17 2344 MR#: [id number] Acct: [id number] Name: SKYLER PINZON Rep #: [id number] : 1965 52 From: Dylan Reid MD [...] Normal ECG Confirmed by DYLAN REID ([id number]), editor in chief newspaper IRAM CONKLIN ([id number]) on 08/19/2017 2:15:50 PM Referred By: PAUL Confirmed By:DYLAN REID 08/19/17 1415 Date Dylan Reid MD CC: Ambrosio Solis DO; Sally Simon MD; Mike Bella MD Signed CBC W/DIFF, AUTOMATED Collected: 08/20/2017 Status: F Source: MELVIN 8:05 AM [facility] REPOSITORY Order Comment: TAC, CBC, AND RENAL TO DR. RAO CBC TO DR. SUAREZ RENAL AND CULTURE TO DR. CRENSHAW ([facility]) CANCELLED DUE TO RENAL TYPE CODE TESTS [...] Lymph 0.83 Performed By: #### L100.0100 #### [facility] [address] [place], [place], [address] RENAL PROFILE Collected: 08/20/2017 Status: F Source: POLK 8:05 AM [facility] REPOSITORY Order Comment: TAC, CBC, AND RENAL TO DR. RAO CBC TO DR. SUAREZ RENAL AND CULTURE TO DR. CRENSHAW ([facility]) CANCELLED DUE TO RENAL TYPE CODE TESTS [...] CO2 24.0 Performed By: #### L500.3600 #### [facility] [address] [facility]. [place], [place], [address] Observed: 08/20/2017 Status: F Source: POLK CULTURE, URINE 8:05 AM [facility] REPOSITORY TAC, CBC, AND RENAL TO DR. RAO CBC TO DR. SUAREZ RENAL AND CULTURE TO DR. CRENSHAW ([facility]) CANCELLED DUE TO RENAL Urine Culture ORGANISM 1: Enterococcus faecium [place] Count 80,000-100,000 Enterococcus faecium: REACTION Ampicillin $ 16 R Benzylpenicillin NF 32 R Ciprofloxacin $ >=8 R Gentamicin SYN-S S Levofloxacin $ >=8 R Linezolid $$$$ 2 S Nitrofurantoin $ 32 S Streptomycin $ SYN-S S Tetracycline NF >=16 R Vancomycin $ <=0.5 S (NF) indicates non-formulary drug at [facility]. Approval by Infectious Disease Specialist required before non-formulary drugs may be ordered and/or dispensed. * CLSI guidelines does not recommend testing of cephalosporins. This interpretation is deduced from Beta-lactam/penicillin results. Performed By: #### M100.0650 #### [facility] [address] [facility] [place], [address] TACROLIMUS (PROGRAF) Collected: 08/20/2017 Status: F Source: POLK 8:05 AM [facility] REPOSITORY Order Comment: TAC, CBC, AND RENAL TO DR. RAO CBC TO DR. SUAREZ RENAL AND CULTURE TO DR. CRENSHAW ([facility]) CANCELLED DUE TO RENAL TYPE CODE TESTS RESULT OUT OF RANGE REFERENCE UNITS LAB L3380.1100 2.0-20.0 ng/mL Normal TACROLIMUS 5.4 Result Comment: Trough (immediately following transplant) 15.0 Trough (steady state, 2 weeks or more after transplant): 3.0 - 8.0 Detection Limit = 1.0 Performed by LC-MS/MS technology. Performed at: [facility] Lab[address] [id number] [place] Electronic: Renan Soares MD, Phone: [phone] Performed By: #### L3380.1000 #### [facility] (refer to report for specific site) refer to report for address and phone number DISCHARGE SUMMARY Observed: 08/19/2017 Status: F Source: MELVIN 6:38 AM [facility] REPOSITORY [facility] Medical Records Department [address] [facility] [place] [address] Discharge Summary 07/18/17 0958 MR#: [id number] Acct: [id number] Name: SKYLER PINZON Rep #: [id number] : 1965 52 From: Bharti REGAN PCP: Mike Bella MD Status: DIS IN Y Location: [facility] [id number] ADDENDUM by Keli Metzger on 08/19/17 at [...] have been written. Inpatient E AND M: 55486 Disch Hosp 07/18/17 1004 <Electronically signed by Bharti CASEC> Date Bharti CASEC 07/26/17 1917<Electronically signed by Adilene Metzger DO> Cosigner Signature (if applicable): Date Adilene Metzger DO CC: JASS Aly; Keli Metzger; Mike Bella MD Signed DISCHARGE SUMMARY Observed: 08/18/2017 Status: F Source: POLK 12:11 PM [facility] REPOSITORY [facility] Medical Records Department [address] [place] [address] Discharge Summary 08/18/17 1208 MR#: [id number] Acct: [id number] Name: SKYLER PINZON Rep #: [id number] : 1965 52 From: Ambrosio Solis DO PCP: Mike Bella MD Status: ADM PILY Y Location: [place] [address] Discharge Date and Diagnosis - Problem List [...] applicable Code Visit OBSV E AND M: 61940 Observation care discharge 08/18/17 1211 <Electronically signed by Ambrosio Solis DO> Date Ambrosio Solis DO Cosigner Signature (if applicable): Date CC: Ambrosio Solis DO; Mike Bella MD Signed DISCHARGE INSTRUCTION Observed: 08/18/2017 Status: F Source: MELVIN 12:07 PM [facility] REPOSITORY [facility] Medical Records Department [address] [place] [address] Instructions for Home/Discharge Instructions 08/18/17 1206 MR#: [id number] Acct: [id number] Name: SKYLER PINZON Rep #: [id number] : 1965 52 From: Ambrosio Solis DO [...] Bella MD Observed: 08/18/2017 Status: F Source: POLK RESPIRATORY PANEL 5:05 AM [facility] MOLE[facility]ULAR REPOSITORY RP PANEL ADENOVIRUS Not Detected [...] acid amplification Performed By: #### M100.638 #### [facility] [address] [place] [address], [address] TROPONIN-I Collected: 08/18/2017 Status: F Source: POLK 5:00 AM [facility] REPOSITORY Order Comment: 'TROP' Serial specimen #1, #2, #3, or #4: 1 TYPE CODE TESTS RESULT OUT OF RANGE REFERENCE UNITS LAB L501.4010 <0.06 ng/mL Normal < 0.02 TROPONIN-I Result Comment: TROPONIN-I EXPECTED VALUES <0.05 NEGATIVE 0.06 - 0.59 AT RISK OF DC > OR = 0.60 SUGGEST DC Performed By: #### L501.4010 #### [facility] [address] [place] [address], [address] EMERGENCY DEPARTMENT Observed: 08/18/2017 Status: F Source: POLK SUMMARY 4:40 AM [facility] REPOSITORY [facility] Medical Records Department [address] [place] [address] Emergency Department Summary 08/18/17 0003 MR#: [id number] Acct: [id number] Name: SKYLER PINZON Rep #: [id number] : 1965 52 From: Sally Simon MD [...] chest pain and remained mildly tachycardic on quality assurance monitor body. He received additional morphine without improvement. Given [...] pain, pleurisy This note was generated with NxThera dictation software. It may contain incorrect words, spelling, and punctuation that were not noted in review of the chart prior to signing ED Disposition - Plan for ED Patient: Disposition: [facility] Care [facility] Chief Complaint: Chest Pain What to do if you have Problems For any increased pain, shortness of breath, bleeding, nausea or vomiting, chest pain, or any unexpected problems, contact your Primary Care Provider. Call [facility] ([phone]) or report to the closest Emergency Room. Call 911 if necessary. 08/18/17 0440 <Electronically signed by Sally Simon MD> Date Sally Simon MD Cosigner Signature (If Indicated): Date CC: Mike Bella MD HISTORY AND PHYSICAL Observed: 08/18/2017 Status: F Source: POLK EXAM 4:06 AM [facility] REPOSITORY [facility] Medical Records Department [address] [place] [address] History and Physical 08/18/17 0351 MR#: [id number] Acct: [id number] Name: SKYLER PINZON Rep #: [id number] : 1965 52 From: Luis Armando Chapman DO PCP: Mike Bella MD Status: ADM PILY Y Location: [place] [address] Problem List (1) Right-sided chest pain Status: Acute (2) Nonproductive cough Status: Acute History of Present Illness Date of Admission: 08/18/17 Chief Complaint: Nonproductive cough, right sided chest pain The patient is a 52 year old M who was seen in the emergency room at [facility] after being brought in by his sister [...] time Code Visit OBSV E AND M: 12875 Initial observation care L3 08/18/17 0406 <Electronically signed by Luis Armando Chapman DO> Date Luis Armando Chapman DO Cosigner Signature: Date (if applicable) CC: Luis Armando Chapman DO; Mike Bella MD Signed URINALYSIS, COMPLETE Collected: 08/18/2017 Status: F Source: MELVIN 1:20 AM [facility] REPOSITORY Order Comment: COLOR OF URINE MAY [...] 0 SEEN Performed By: #### L400.0001 #### [facility] [address] [place], [place], [address] Observed: 08/18/2017 Status: F Source: POLK CULTURE, URINE 1:20 AM [facility] REPOSITORY Has pt arrived? Y Urine Culture ORGANISM 1: Mixed Gram Positive Organisms [place] Count 11,000-25,000 MIX CULTURE Mixed contaminants. Submit a new specimen if indicated. Performed By: #### M100.0650 #### [facility] [address] [place], [place], [address] CHEST PA AND LATERAL Observed: 08/18/2017 Status: F Source: MELVIN 12:04 AM [facility] REPOSITORY [facility] Imaging Services [address] [place] [address] Chest PA and Lateral MR#: [id number] Acct: [id number] Name: SKYLER PINZON Rep #: [id number] : 1965 M 52 From: Iram Barr MD PCP: Mike Bella MD Status: REG ER Study: Chest PA and Lateral Date of Exam: 08/18/17 Exam# [id number] Ordering Dr: Sally Simon MD XR Chest [...] CC: Sally Simon MD; Mike Bella MD Senior Credit Analyst: Signed CBC W/DIFF, AUTOMATED Collected: 08/17/2017 Status: F Source: POLK 11:40 PM [facility] REPOSITORY TYPE CODE TESTS RESULT OUT OF [...] Lymph 1.10 Performed By: #### L100.0100 #### [facility] [address] [place], [place], [address] PROTHROMBIN TIME W/INR Collected: 08/17/2017 Status: F Source: POLK 11:40 PM [facility] REPOSITORY TYPE CODE TESTS RESULT OUT OF RANGE REFERENCE UNITS LAB L300.4150 11.7-14.9 SECONDS High PROTIME 16.4 LAB L300.4200 Normal INR 1.3 Performed By: #### L300.3900, L300.4310 #### [facility] [address] [place], [place], [address] PARTIAL THROMBOPLAST Collected: 08/17/2017 Status: F Source: [facility] 11:40 PM [facility] REPOSIT[facility] TYPE CODE TESTS RESULT OUT OF RANGE REFERENCE UNITS LAB L300.4310 24.1-36.2 Seconds Normal PTT 33.6 Performed By: #### L300.3900, L300.4310 #### [facility] [address] [place], [address] COMPREHENSIVE METABOLIC Collected: 08/17/2017 Status: F Source: [facility] 11:40 PM [facility] REPOSITORY Order Comment: 'TROP' Serial specimen #1, [...] Performed By: #### L500.4050, L501.2450, L501.4010 #### [facility] [address] [place], [address] LIPASE Collected: 08/17/2017 Status: F Source: POLK 11:40 PM [facility] REPOSITORY Order Comment: 'TROP' Serial specimen #1, #2, #3, or #4: 1 TYPE CODE TESTS RESULT OUT OF REFERENCE UNITS RANGE LAB L501.2450 73-393 U/L High LIPASE 396 Performed By: #### L500.4050, L501.2450, L501.4010 #### [facility] [address] [place] [place], [address] TROPONIN-I Collected: 08/17/2017 Status: F Source: POLK 11:40 PM [facility] REPOSITORY Order Comment: 'TROP' Serial specimen #1, #2, #3, or #4: 1 TYPE CODE TESTS RESULT OUT OF RANGE REFERENCE UNITS LAB L501.4010 <0.06 ng/mL Normal < 0.02 TROPONIN-I Result Comment: TROPONIN-I EXPECTED VALUES <0.05 NEGATIVE 0.06 - 0.59 AT RISK OF DC > OR = 0.60 SUGGEST DC Performed By: #### L500.4050, L501.2450, L501.4010 #### [facility] [address] [place], [address] 12 LEAD ELECTROCARDIOGRAM Observed: 07/29/2017 Status: F Source: POLK 3:19 PM [facility] REPOSITORY [facility] Cardiovascular Services [address] [place] [address] 12 Lead EKG 07/28/17 0143 MR#: [id number] Acct: [id number] Name: SKYLER PINZON Rep #: [id number] : 1965 52 From: Rolf Mon MD [...] ECG Confirmed by ROLF MON MD ([id number]), editor in chief newspaper IRAM CONKLIN ([id number]) on 07/29/2017 3:19:34 PM Referred By: SARA RAO Confirmed By:ROLF MON MD 07/29/17 1519 Date Rolf Mon MD CC: Jose Armando Mosqueda MD; Mike Bella MD Signed EMERGENCY DEPARTMENT Observed: 07/28/2017 Status: F Source: POLK SUMMARY 4:05 AM [facility] REPOSITORY [facility] Medical Records Department [address] [facility] [place] [address] Emergency Department Summary 07/28/17 0303 MR#: [id number] Acct: [id number] Name: SKYLER PINZON Rep #: [id number] : 1965 52 From: Jose Armando Mosqueda [...] chest pain This note was generated with Graceful Tablesation software. It may contain incorrect words, spelling, [...] problems, contact your Primary Care Provider. Call [facility] ([phone]) or report to the closest Emergency Room. Call 911 if necessary. 07/28/17 0405 <Electronically signed by Jose Armando Mosqueda MD> Date Jose Armando Mosqueda MD Cosigner Signature (If Indicated): Date CC: Mike Bella MD DISCHARGE INSTRUCTION Observed: 07/28/2017 Status: F Source: POLK 4:05 AM [facility] REPOSITORY [facility] Medical Records Department [address] [place] [address] Discharge Instruction 07/28/17 0305 MR#: [id number] Acct: [id number] Name: SKYLER PINZON Rep #: [id number] : 1965 52 From: Jose Armando Mosqueda MD PCP: Mike Bella MD Status: [facility] ED Disposition - Plan for ED Patient: Disposition: Home or Assisted Living Chief Complaint: Chest Pain Instructions: Pulmonary Embolism Referrals: Mike Bella MD [Primary Care Provider] - What to do if you have Problems For any increased pain, shortness of breath, bleeding, nausea or vomiting, chest pain, or any unexpected problems, contact your Primary Care Provider. Call [facility] ([phone]) or report to the closest Emergency Room. Call 911 if necessary. 07/28/17 0405 <Electronically signed by Jose Armando Mosqueda MD> Date Jose Armando Mosqueda MD Cosigner Signature (If Indicated): Date CC: Mike Bella MD CBC W/DIFF, AUTOMATED Collected: 07/28/2017 Status: C Source: POLK 2:25 AM [facility] REPOSIT[facility] TYPE CODE TESTS RESULT OUT OF [...] August carmen Performed By: #### L100.0100 #### [facility] [address] [place], [address] BASIC METABOLIC Collected: 07/28/2017 Status: F Source: POLK PROFILE (BMP) 2:25 AM [facility] REPOSIT[facility] Order Comment: 'TROP' Serial specimen #1, [...] 9 Performed By: #### L500.2500, L501.4010 #### [facility] [address] [place], [address] TROPONIN-I Collected: 07/28/2017 Status: F Source: POLK 2:25 AM [facility] REPOSITORY Order Comment: 'TROP' Serial specimen #1, #2, #3, or #4: 1 TYPE CODE TESTS RESULT OUT OF RANGE REFERENCE UNITS LAB L501.4010 <0.06 ng/mL Normal < 0.02 TROPONIN-I Result Comment: TROPONIN-I EXPECTED VALUES <0.05 NEGATIVE 0.06 - 0.59 AT RISK OF DC > OR = 0.60 SUGGEST DC Performed By: #### L500.2500, L501.4010 #### [facility] [address] [place], [address] CHEST 1 VIEW Observed: 07/28/2017 Status: F Source: POLK (PORTABLE) 2:08 AM [facility] REPOSITORY [facility] Imaging Services [address] [place] [address] Chest 1 View (Portable) MR#: [id number] Acct: [id number] Name: SKYLER PINZON Rep #: [id number] : 1965 M 52 From: Peter Gamez PCP: Mike eBlla MD Status: REG ER Study: Chest 1 View (Portable) Date of Exam: 07/28/17 Exam# [id number] Ordering Dr: Jose Armando Mosqueda MD STUDY: [...] Jose Armando Mosqueda MD; Mike Bella MD Senior Credit Analyst: Signed 12 LEAD ELECTROCARDIOGRAM Observed: 07/23/2017 Status: F Source: POLK 1:47 PM [facility] REPOSITORY [facility] Cardiovascular Services [address] [place] [address] 12 Lead EKG 07/20/172054 MR#: [id number] Acct: [id number] Name: SKYLER PINZON Rep #: [id number] : 1965 52 From: Rolf Mon MD Attending Dr: Cleopatra Rey MD Status: DIS PILY Ordering Dr: Brooks Fallon DO Date: 07/20/17 Location: [facility] Sex: M C Admitted: 07/21/17 Test Reason [...] ECG Confirmed by ROLF MON MD ([id number]), editor in chief newspaper IRAM CONKLIN ([id number]) on 07/23/2017 1:46:52 PM Referred By: GIA Confirmed By:ROLF MON MD 07/23/17 1346 Date Rolf Mon MD CC: Mike Bella MD; Brooks Fallon DO Signed 12 LEAD ELECTROCARDIOGRAM Observed: 07/23/2017 Status: F Source: MELVIN 1:46 PM [facility] REPOSIT[facility] Cardiovascular Services [address] [place] [address] 12 Lead EKG 07/21/17 0020 MR#: [id number] Acct: [id number] Name: SKYLER PINZON Rep #: [id number] : 1965 52 From: Rolf Mon MD Attending Dr: Cleopatra Rey MD Status: DIS PILY Ordering Dr: Brooks Fallon DO Date: 07/20/17 Location: [facility] Sex: M C Admitted: 07/21/17 Test Reason : REPEAT Blood Pressure : / mmHG Vent. Rate : 090 BPM Atrial Rate : 090 BPM P-R Int : 128 ms QRS Dur : 078 ms QT Int : 378 ms P-R-T Axes : 063 013 046 degrees QTc Int : 462 ms Normal sinus rhythm Normal ECG Confirmed by SUSAN MORENO, ROLF ([id number]), editor in chief newspaper IRAM CONKLIN ([id number]) on 07/23/2017 1:46:08 PM Referred By: GIA Confirmed By:ROLF MON MD 07/23/17 1346 Date Rolf Mon MD CC: Mike Bella MD; Brooks Fallon DO Signed DISCHARGE SUMMARY Observed: 07/22/2017 Status: F Source: MELVIN 4:55 PM [facility] REPOSITORY [facility] Medical Records Department [address] [address] Discharge Summary 07/21/17 1236 MR#: [id number] Acct: [id number] Name: SKYLER PINZON Rep #: [id number] : 1965 52 From: Bharti REGAN PCP: Mike Bella MD Status: DIS PILY Y Location: [place] [address] ADDENDUM by Cleopatra Rey MD on 07/22/17 at 1655 Code Visit OBSLara CODY: 14364 Observ/hosp same date L3 07/22/17 1655 <Electronically [...] (if applicable): Date Cleopatra Rey MD CC: BUSINESS EDUCATION TEACHERBeti Aly; Cleopatra Rey MD; Mike Bella MD Signed CBC-COMPLETE BLOOD CNT Collected: 07/22/2017 Status: F Source: MELVIN NO DIFF 8:12 AM [facility] REPOSITORY TYPE CODE TESTS RESULT OUT OF [...] MPV 10.0 Performed By: #### L100.0500 #### [facility] [address] [place], [address] RENAL PROFILE Collected: 07/22/2017 Status: F Source: MELVIN 8:12 AM [facility] REPOSITORY TYPE CODE TESTS RESULT OUT OF [...] CO2 22.0 Performed By: #### L500.3600 #### [facility] [address] [facility] [place], [address] TACROLIMUS (PROGRAF) Collected: 07/22/2017 Status: F Source: POLK 8:12 AM [facility] REPOSITORY TYPE CODE TESTS RESULT OUT OF RANGE REFERENCE UNITS LAB L3380.1100 2.0-20.0 ng/mL Normal TACROLIMUS 6.5 Result Comment: Trough (immediately following transplant) 15.0 Trough (steady state, 2 weeks or more after transplant): 3.0 - 8.0 Detection Limit = 1.0 Performed by LC-MS/MS technology. Performed at: [facility] [address] [id number] [place] Electronic: Renan Soares MD, Phone: [phone] Performed By: #### L3380.1000 #### [facility] (refer to report for specific site) refer to report for address and phone number DISCHARGE INSTRUCTION Observed: 07/21/2017 Status: F Source: POLK 12:36 PM [facility] REPOSITORY [facility] Medical Records Department [address] [place] [address] Instructions for Home/Discharge Instructions 07/21/17 1229 MR#: [id number] Acct: [id number] Name: SKYLER PINZON Rep #: [id number] : 1965 52 From: Bharti Aly BUSINESS EDUCATION TEACHERBeti PCP: Mike Bella MD Status: ADM PILY [...] treatment. Recommend you follow up with a compensation and benefits administrator that looks for reasons why you had [...] 1-2 Weeks Please Follow Up With: Nakul Cresnhaw MD When: As scheduled Please Follow Up With: Kidney doctor When: As scheduled Proposed Discharge Date: 07/21/17 07/21/17 1236 <Electronically signed by Bharti REGAN> Date Bharti REGAN CC: Mike Bella MD BASIC METABOLIC Collected: 07/21/2017 Status: F Source: MELVIN PROFILE (BMP) 5:06 AM [facility] REPOSITORY Order Comment: 'TROP' Serial specimen #1, [...] 9 Performed By: #### L500.2500, L501.4010 #### [facility] [address] [place], [place], [address] TROPONIN-I Collected: 07/21/2017 Status: F Source: MELVIN 5:06 AM [facility] REPOSIT[facility] Order Comment: 'TROP' Serial specimen #1, #2, #3, or #4: 2 TYPE CODE TESTS RESULT OUT OF RANGE REFERENCE UNITS LAB L501.4010 <0.06 ng/mL Normal < 0.02 TROPONIN-I Result Comment: TROPONIN-I EXPECTED VALUES <0.05 NEGATIVE 0.06 - 0.59 AT RISK OF DC > OR = 0.60 SUGGEST DC Performed By: #### L500.2500, L501.4010 #### [facility] [address] [place], [address] TROPONIN-I Collected: 07/21/2017 Status: F Source: POLK 2:05 AM [facility] REPOSITORY Order Comment: 'TROP' Serial specimen #1, #2, #3, or #4: 2 TYPE CODE TESTS RESULT OUT OF RANGE REFERENCE UNITS LAB L501.4010 <0.06 ng/mL Normal < 0.02 TROPONIN-I Result Comment: TROPONIN-I EXPECTED VALUES <0.05 NEGATIVE 0.06 - 0.59 AT RISK OF DC > OR = 0.60 SUGGEST DC Performed By: #### L501.4010 #### [facility] [address] [facility] [place], [address] HISTORY AND PHYSICAL Observed: 07/21/2017 Status: F Source: POLK EXAM 12:35 AM [facility] REPOSITORY [facility] Medical Records Department [address] [place] [address] History and Physical 07/21/17 0024 MR#: [id number] Acct: [id number] Name: SKYLER PINZON Rep #: [id number] : 1965 52 From: Ambrosio Solis DO PCP: Mike Bella MD Status: ADM PILY Y Location: [place] [address] Problem List (1) Pulmonary embolism Status: Acute [...] patient's sister, who is patient's power of incinerator plant general supervisor and advised the NOACs over Coumadin. * [...] sister, who is the patient's power of incinerator plant general supervisor, discussed CPR and endotracheal intubation. Patient is to continue to be full CODE STATUS at this time. She does state that she he does have a follow-up appointment with his primary care doctor, Dr. Bella, in the coming week or 2 and they plan on discussing it with him at that time. Code Visit OBSV E AND M: 51050 Initial observation care L3 07/21/17 0035 <Electronically signed by Ambrosio Solis DO> Date Ambrosio Solis DO Cosigner Signature: Date (if applicable) CC: Ambrosio Solis DO; Mike Bella MD Signed EMERGENCY DEPARTMENT Observed: 07/20/2017 Status: F Source: POLK SUMMARY 11:51 PM [facility] REPOSITORY [facility] Medical Records Department [address] [place] [address] Emergency Department Summary 07/20/17 2348 MR#: [id number] Acct: [id number] Name: SKYLER PINZON Rep #: [id number] : 1965 52 From: Brooks Fallon DO [...] embolism Pneumonia] This note was generated with NxThera dictation software. It may contain incorrect words, [...] your Primary Care Provider. Call [facility] ([phone]) or report to the closest Emergency Room. Call 911 if necessary. 07/20/17 3782 <Electronically signed by Brooks Fallon DO> Date Brooks Fallon DO Cosigner Signature (If Indicated): Date CC: Mike Bella MD CTA CHEST W/WO Observed: 07/20/2017 Status: F Source: MELVIN CONTRAST 10:09 PM [facility] REPOSITORY [facility] Imaging Services [address] [place] [address] CTA Chest W/WO Contrast MR#: [id number] Acct: [id number] Name: SKYLER PINZON Rep #: [id number] : 1965 M 52 From: Sheyla Long MD PCP: Mike Bella MD Status: REG ER Study: CTA Chest W/WO Contrast Date of Exam: 07/20/17 Exam# [id number] Ordering Dr: Brooks Fallon DO STUDY: CTA [...] CC: Mike Bella MD; Brooks Fallon DO Senior Credit Analyst: Signed CHEST 1 VIEW Observed: 07/20/2017 Status: F Source: MELVIN (PORTABLE) 9:04 PM [facility] REPOSITORY [facility] Imaging Services [address] [place] [address] Chest 1 View (Portable) MR#: [id number] Acct: [id number] Name: SKYLER PINZON Rep #: [id number] : 1965 M 52 From: Sheyla Long MD PCP: Mike Bella MD Status: REG ER Study: Chest 1 View (Portable) Date of Exam: 07/20/17 Exam# [id number] Ordering Dr: Brooks Fallon DO STUDY: X-RAY [...] CC: Mike Bella MD; Brooks Fallon DO Senior Credit Analyst: Signed BASIC METABOLIC Collected: 07/20/2017 Status: F Source: MELVIN PROFILE (BMP) 8:55 PM [facility] REPOSITORY Order Comment: 'TROP' Serial specimen #1, [...] 11 Performed By: #### L500.2500, L501.4010 #### [facility] [address] [place], [place], [address] TROPONIN-I Collected: 07/20/2017 Status: F Source: MELVIN 8:55 PM [facility] REPOSITORY Order Comment: 'TROP' Serial specimen #1, #2, #3, or #4: 1 TYPE CODE TESTS RESULT OUT OF RANGE REFERENCE UNITS LAB L501.4010 <0.06 ng/mL Normal < 0.02 TROPONIN-I Result Comment: TROPONIN-I EXPECTED VALUES <0.05 NEGATIVE 0.06 - 0.59 AT RISK OF DC > OR = 0.60 SUGGEST DC Performed By: #### L500.2500, L501.4010 #### [facility] [address] [place], [place], [address] CBC W/DIFF, AUTOMATED Collected: 07/20/2017 Status: C Source: POLK 8:55 PM [facility] REPOSITORY TYPE CODE TESTS RESULT OUT OF [...] as: August Performed By: #### L100.0100 #### [facility] [address] [place] [place], [address] D-DIMER QUANTITATIVE Collected: 07/20/2017 Status: F Source: MELVIN (DVT/PE) 8:55 PM [facility] REPOSITORY TYPE CODE TESTS RESULT OUT OF RANGE REFERENCE UNITS LAB L300.8000 0.27-0.49 FEU/ug/m High alert D-DIMER 4.98 QUANT Result Comment: D-Dimer ELEVATED (>0.49): Additional studies and clinical assessments are indicated to conclude diagnosis of: Deep Vein Thrombosis (DVT) or Pulmonary Embolism (PE) CRITICAL VALUE VERIFIED. CALLED TO [facility] 07/20/17 2158 Amelia Mina. RESULTS READ BACK BY SAME . Performed By: #### L300.8000 #### [facility] [address] [facility] [place], [address] DISCHARGE INSTRUCTION Observed: 07/18/2017 Status: F Source: MELVIN 9:58 AM [facility] REPOSITORY [facility] Medical Records Department [address] [place] [address] Instructions for Home/Discharge Instructions 07/18/17 0952 MR#: [id number] Acct: [id number] Name: SKYLER PINZON Rep #: [id number] : 1965 52 From: Bharti REGAN PCP: [...] F Source: MELVIN NO DIFF 6:14 AM [facility] REPOSIT[facility] TYPE CODE TESTS RESULT OUT OF [...] MPV 11.2 Performed By: #### L100.0500 #### [facility] [address] [facility]. [place], [place], [address] BASIC METABOLIC Collected: 07/18/2017 Status: F Source: MELVIN PROFILE (BMP) 6:14 AM [facility] REPOSITORY TYPE CODE TESTS RESULT OUT OF [...] 9 Performed By: #### L500.2500, L501.2300 #### [facility] [address] [place], [address] PHOSPHORUS Collected: 07/18/2017 Status: F Source: MELVIN 6:14 AM [facility] REPOSITORY TYPE CODE TESTS RESULT OUT OF RANGE REFERENCE UNITS LAB L501.2300 2.5-4.9 mg/dL Low PHOS 2.1 Performed By: #### L500.2500, L501.2300 #### [facility] [place], [address] Observed: 07/17/2017 Status: F Source: MELVIN CDIFF (MOLECULAR) 8:52 AM [facility] REPOSITORY Order Date: 07/17/17 Cdiff-Molecular C. Diff DNA Negative- No toxigenic C. Diff DNA Detected NAAT METHOD Testing was performed using nucleic acid amplification Performed By: #### M100.6796 #### [facility] [address] [place], [address] BASIC METABOLIC Collected: 07/17/2017 Status: F Source: MELVIN PROFILE (BMP) 7:24 AM [facility] REPOSITORY TYPE CODE TESTS RESULT OUT OF [...] GAP 9 Performed By: #### L500.2500 #### [facility] [place], [address] CBC-COMPLETE BLOOD CNT Collected: 07/17/2017 Status: F Source: MELVIN NO DIFF 7:24 AM [facility] REPOSITORY TYPE CODE TESTS RESULT OUT OF [...] MPV 11.3 Performed By: #### L100.0500 #### [facility] [address] [place] [address]. [place], [address] 12 LEAD ELECTROCARDIOGRAM Observed: 07/16/2017 Status: F Source: POLK 1:29 PM [facility] REPOSITORY [facility] Cardiovascular Services [address] [place] [address] 12 Lead EKG 07/13/17 2154 MR#: [id number] Acct: [id number] Name: SKYLER PINZON Rep #: [id number] : 1965 52 From: Rolf Mon MD Attending Dr: Keli Metzger Status: ADM IN Ordering Dr: Claus Lisa MD Date: 07/13/17 Location[place] [facility] [place] Sex: M C Admitted: 07/13/17 Test Reason : FEVER Blood Pressure : / mmHG Vent. Rate : 122 BPM Atrial Rate : 122 BPM P-R Int : 136 ms QRS Dur : 076 ms QT Int : 306 ms P-R-T Axes : 040 -07 055 degrees QTc Int : 436 ms Sinus tachycardia Otherwise normal ECG Confirmed by SUSAN MORENO, ROLF ([id number]), editor in chief newspaper IRAM CONKLIN ([id number]) on 07/16/2017 1:29:09 PM Referred By: BROOK Confirmed By:ROLF MON MD 07/16/17 1329 Date Rolf Mon MD CC: Claus Lisa; Mike Bella MD Signed CBC W/DIFF, AUTOMATED Collected: 07/16/2017 Status: C Source: MELVIN 5:55 AM [facility] REPOSITORY TYPE CODE TESTS RESULT OUT OF [...] Lymph 0.72 Performed By: #### L100.0100 #### [facility] [address] [place], [address] COMPREHENSIVE METABOLIC Collected: 07/16/2017 Status: F Source: MELVIN [facility] 5:55 AM [facility] REPOSITORY TYPE CODE TESTS RESULT OUT OF [...] Performed By: #### L500.4050, L501.2300, L501.5200 #### [facility] [address] [facility] [place], [address] PHOSPHORUS Collected: 07/16/2017 Status: F Source: POLK 5:55 AM [facility] REPOSIT[facility] TYPE CODE TESTS RESULT OUT OF RANGE REFERENCE UNITS LAB L501.2300 2.5-4.9 mg/dL Low PHOS 2.2 Performed By: #### L500.4050, L501.2300, L501.5200 #### [facility] [address] [facility] [place], [address] MAGNESIUM Collected: 07/16/2017 Status: F Source: POLK 5:55 AM [facility] REPOSIT[facility] TYPE CODE TESTS RESULT OUT OF RANGE REFERENCE UNITS LAB L501.5200 1.6-2.6 mg/dL Normal MG 1.7 Result Comment: Please note revised Magnesium reference range effective 2017. Performed By: #### L500.4050, L501.2300, L501.5200 #### [facility] [address] [facility] [place], [address] ABDOMEN/PELVIS WITHOUT Observed: 07/16/2017 Status: F Source: MELVIN CONT 12:01 AM [facility] REPOSITORY [facility] Imaging Services [address] [place] [address] Abdomen/Pelvis without Cont MR#: [id number] Acct: [id number] Name: SKYLER PINZON Rep #: [id number] : 1965 M 52 From: Miah Barrios MD PCP: Mike Bella MD Status: ADM IN Study: Abdomen/Pelvis without Cont Date of Exam: 07/16/17 Exam# [id number] Ordering Dr: Adilene Metzger DO STUDY: CT [...] , CC: Keli Metzger; Mike Bella MD Senior Credit Analyst: Signed CONSULTATION Observed: 07/15/2017 Status: F Source: MELVIN 10:07 AM [facility] REPOSITORY [facility] Medical Records Department [address] [place] [address] Consultation 07/15/17 0956 MR#: [id number] Acct: [id number] Name: SKYLER PINZON Rep #: [id number] : 1965 52 From: Darin Williamson MD PCP: Mike Bella MD Status: ADM IN Y Location: [address] Problem List (1) Kidney transplant recipient [...] (Porcine) (Heparin Na) 5,000 unit SC BID [facility] Last Admin: 07/15/17 09:02 Dose: 5,000 units Hydralazine HCl (Apresoline) 10 mg IV Q4H PRN PRN PRN Reason: SBP > 160 Sodium Chloride () 1,000 mls @ 150 mls/hr IV .Q6H40M [facility] Last Admin: 07/15/17 06:33 Dose: 150 mls/hr Meropenem 500 mg/ Sodium (Chloride) 60 mls @ 100 mls/hr IV Q6 [facility] Last Admin: 07/15/17 05:59 Dose: 100 [...] Mycophenolate Mofetil (Cellcept) 500 mg PO BID [facility] Last Admin: 07/15/17 09:03 Dose: 500 [...] ml Tacrolimus (Prograf) 2 mg PO BID [facility] Last Admin: 07/15/17 09:02 Dose: 2 mg Trimethoprim/Sulfamethoxazole (Bactrim Ds) [facility] tablet [facility] Last Admin: 07/15/17 08:55 Dose: 0.5 tablet [...] F Source: MELVIN PROFILE (BMP) 5:43 AM [facility] REPOS[facility] TYPE CODE TESTS RESULT OUT OF [...] Performed By: #### L500.2500, L501.2300, L501.5200 #### [facility] [address] [place], [address] PHOSPHORUS Collected: 07/15/2017 Status: F Source: POLK 5:43 AM [facility] REPOSIT[facility] TYPE CODE TESTS RESULT OUT OF RANGE REFERENCE UNITS LAB L501.2300 2.5-4.9 mg/dL Low PHOS 1.8 Performed By: #### L500.2500, L501.2300, L501.5200 #### [facility] [address] [place], [address] MAGNESIUM Collected: 07/15/2017 Status: F Source: POLK 5:43 AM [facility] REPOS[facility] TYPE CODE TESTS RESULT OUT OF RANGE REFERENCE UNITS LAB L501.5200 1.6-2.6 mg/dL Normal MG 1.8 Result Comment: Please note revised Magnesium reference range effective 2017. Performed By: #### L500.2500, L501.2300, L501.5200 #### [facility] [address] [place], [address] CBC W/DIFF, AUTOMATED Collected: 07/15/2017 Status: C Source: POLK 5:43 AM [facility] REPOSIT[facility] TYPE CODE TESTS RESULT OUT OF [...] August carmen Performed By: #### L100.0100 #### [facility] [address] [place], [address] CONSULTATION Observed: 07/14/2017 Status: F Source: POLK 12:54 PM [facility] REPOSITORY [facility] Medical Records Department [address] [place] [address] Consultation 07/14/17 1212 MR#: [id number] Acct: [id number] Name: SKYLER PINZON Rep #: [id number] : 1965 52 From: Cheng Santos MD PCP: Mike Bella MD Status: ADM IN Location: [facility] [place] [id number] ADDENDUM by Cheng Santos MD on 07/14/17 [...] W/DIFF, AUTOMATED Collected: 07/14/2017 Status: C Source: POLK 6:20 AM [facility] REPOSIT[facility] TYPE CODE TESTS RESULT OUT OF [...] August carmen Performed By: #### L100.0100 #### [facility] [address] [place], [place], [address] BASIC METABOLIC Collected: 07/14/2017 Status: F Source: POLK PROFILE (BMP) 6:20 AM [facility] REPOSIT[facility] TYPE CODE TESTS RESULT OUT OF [...] GAP 8 Performed By: #### L500.2500 #### [facility] [address] [facility] [place], [address] HISTORY AND PHYSICAL Observed: 07/14/2017 Status: F Source: POLK EXAM 1:05 AM [facility] REPOSITORY [facility] Medical Records Department [address] [place] [address] History and Physical 07/13/17 2336 MR#: [id number] Acct: [id number] Name: KSYLER PINZON Rep #: [id number] : 1965 52 From: Jesica Russo PCP: Mike Bella MD Status: ADM IN Location: [address] Problem List (1) Congenital nystagmus Status: [...] catheterization, Hx DVT who presents to the [facility] on 07/13/17 with history of onset [...] catheterization, Hx DVT who presents to the [facility] on 07/13/17 with history of onset [...] heparin. Code Visit Inpatient E AND M: 07171 Init Hosp L3 07/14/17 0105 <Electronically signed by Jesica Russo > Date Jesica Russo Cosigner Signature: Date (if applicable) CC: Jesica Russo; Mike Bella MD Signed EMERGENCY DEPARTMENT Observed: 07/14/2017 Status: F Source: POLK SUMMARY 12:10 AM [facility] Medical Records Department [address] [place] [address] Emergency Department Summary 07/13/17 2325 MR#: [id number] Acct: [id number] Name: SKYLER PINZON Rep #: [id number] : 1965 52 From: Claus Lisa MD [...] kidney disease This note was generated with Graceful Tablesation software. It may contain incorrect words, spelling, [...] problems, contact your Primary Care Provider. Call [facility] ([phone]) or report to the closest Emergency Room. Call 911 if necessary. 07/14/17 0010 <Electronically signed by Claus Lisa MD> Date Claus Lisa MD Cosigner Signature (If Indicated): Date CC: Mike Bella MD URINALYSIS, COMPLETE Collected: 07/13/2017 Status: F Source: MELVIN 10:45 PM [facility] REPOSITORY Order Comment: How was Urine Obtained? [...] URINE SEEN Performed By: #### L400.0001 #### [facility] [address] [facility] [place], [place], [address] Observed: 07/13/2017 Status: F Source: MELVIN CULTURE, URINE 10:45 PM [facility] REPOSITORY Urine Culture ORGANISM 1: Enterobacter aerogenes [place] Count >100,000 Enterobacter aerogenes: REACTION Amoxacillin/Clavulanic Acid $ 8 R Cefazolin $ >=64 R Cefepime $ <=1 S Ceftriaxone $ 16 I Ciprofloxacin $ 0.5 S Ertapenim $$$ <=0.5 S Gentamicin $ <=1 S Imipenem *NF <=0.25 S Levofloxacin $ 1 S Nitrofurantoin $ 64 I Piperacillin/Tazobactam $$ <=4 S Tobramycin $ <=1 S Trimethoprim/Sulfametho $ >=320 R (NF) indicates non-formulary drug at [facility]. Approval by Infectious Disease Specialist required before non-formulary drugs may be ordered and/or dispensed. Performed By: #### M100.0650 #### [facility]. [place], [place], [address] Observed: 07/13/2017 Status: F Source: MELVIN CULTURE, BLOOD (WB) 10:30 PM [facility] REPOSIT[facility] BC No growth in 5 days. Performed By: #### M200.1000 #### [facility] [address] [facility] [place], [place], [address] Observed: 07/13/2017 Status: F Source: POLK INFLUENZA A+B (RAPID 10:28 PM [facility] REPOSITORY Has pt arrived? Y FLU A/B Rapid Negative test results should be confirmed by culture. Order Rapid Viral Culture for Influenzae A+B ([id number]) if clinically indicated. Influenza Ag, Direct Presumptive NEGATIVE for Influenza A/B Antigen (See Note) Performed By: #### M101.0101 #### [facility] [address] [place], [address] CBC W/DIFF, AUTOMATED Collected: 07/13/2017 Status: F Source: POLK 10:10 PM [facility] REPOSIT[facility] TYPE CODE TESTS RESULT OUT OF [...] LYMPHOPENIA NOTED Performed By: #### L100.0100 #### [facility] [address] [facility] [place], [address] PROTHROMBIN TIME W/INR Collected: 07/13/2017 Status: F Source: POLK 10:10 PM [facility] REPOSITORY TYPE CODE TESTS RESULT OUT OF RANGE REFERENCE UNITS LAB L300.4150 11.7-14.9 SECONDS Normal PROTIME 14.1 LAB L300.4200 Normal INR 1.1 Performed By: #### L300.3900, L300.4310 #### [facility] [address] [facility] [place], [place], [address] PARTIAL THROMBOPLAST Collected: 07/13/2017 Status: F Source: [facility] 10:10 PM [facility] REPOSITORY TYPE CODE TESTS RESULT OUT OF RANGE REFERENCE UNITS LAB L300.4310 24.1-36.2 Seconds Normal PTT 29.0 Performed By: #### L300.3900, L300.4310 #### [facility] [address] [facility] [place], [address] COMPREHENSIVE METABOLIC Collected: 07/13/2017 Status: F Source: POLK PROFIL 10:10 PM [facility] REPOSITORY TYPE CODE TESTS RESULT OUT OF [...] GAP 11 Performed By: #### L500.4050 #### [facility] [address] [facility] [place], [place], [address] LACTIC ACID Collected: 07/13/2017 Status: F Source: POLK 10:10 PM [facility] REPOSITORY Order Comment: Yes/No query for Sepsis Lactate Rule Y TYPE CODE TESTS RESULT OUT OF RANGE REFERENCE UNITS LAB L503.6005 0.4-2.0 mmol/L Normal LACTIC ACID 1.1 Performed By: #### L503.6005 #### [facility] [address] [place], [address] MAGNESIUM Collected: 07/13/2017 Status: F Source: [place] 10:10 PM [facility] REPOSITORY TYPE CODE TESTS RESULT OUT OF RANGE REFERENCE UNITS LAB L501.5200 1.6-2.6 mg/dL Low MG 1.4 Result Comment: Please note revised Magnesium reference range effective 2017. Performed By: #### L501.5200 #### [facility] [address] [place], [address] Observed: 07/13/2017 Status: F Source: [place] CULTURE, BLOOD (WB) 10:10 PM [facility] REPOSITORY BC No growth in 5 days. Performed By: #### M200.1000 #### [facility] [address] [place], [address] CHEST 1 VIEW Observed: 07/13/2017 Status: F Source: [place] (PORTABLE) 9:48 PM [facility] REPOSITORY [facility] Imaging Services [address] [place] [address] Chest 1 View (Portable) MR#: [id number] Acct: [id number] Name: SKYLER PINZON Rep #: [id number] : 1965 M 52 From: Hans Wong MD PCP: Mike Bella MD Status: REG ER Study: Chest 1 View (Portable) Date of Exam: 07/13/17 Exam# [id number] Ordering Dr: Claus Lisa MD STUDY: X-RAY [...] , CC: Claus Lisa; Mike Bella MD Senior Credit Analyst: Signed KIDNEY AND BLADDER Observed: 07/12/2017 Status: F Source: POLK 10:49 AM [facility] REPOSITORY [facility] Imaging Services [address] [place] [address] Kidney and Bladder MR#: [id number] Acct: [id number] Name: SKYLER PINZON Rep #: [id number] : 1965 M 52 From: Hans Wong MD PCP: Mike Bella MD Status: REG CLI Study: Kidney and Bladder Date of Exam: 07/12/17 Exam# [id number] Ordering Dr: Litzy Kern BUSINESS EDUCATION TEACHER-C STUDY: RENAL ULTRASOUND - COMPLETE REASON FOR [...] calculi. US/Kidney and Bladder IMPRESSION: Atrophic right marshall kidney. There is moderate hydronephrosis of the right kidney. There is a diffusely thickened wall of the distended bladder. Echogenic debris is seen within the dependent aspect of the urinary bladder. Unremarkable right renal transplant kidney. Electronically Signed: Hans Wong MD at 17:37 EDT , Service support , CC: Mike Bella MD; Litzy Kern NP Senior Credit Analyst: Signed CBC-COMPLETE BLOOD CNT Collected: 06/04/2017 Status: F Source: [place] NO DIFF 8:17 AM [facility] REPOSITORY TYPE CODE TESTS RESULT OUT OF [...] MPV 9.8 Performed By: #### L100.0500 #### [facility] [address] [place], [address] RENAL PROFILE Collected: 06/04/2017 Status: F Source: MEL[place] 8:17 AM [facility] REPOSITORY Order Comment: Comments: RED TOP SERUM,ROOM [...] CO2 22.0 Performed By: #### L500.3600 #### [facility] [address] [place], [address] MISCELLANEOUS LAB Collected: 06/04/2017 Status: F Source: [place] PROCEDURE 8:17 AM [facility] REPOSITORY Order Comment: Comments: RED TOP SERUM,ROOM TEMP Test(s) Ordered: [id number] TYPE CODE TESTS RESULT OUT OF RANGE REFERENCE UNITS LAB L801.1541 Normal [facility] TEST Result Comment: TEST RESULT LIMITS Mycophenolic Acid and Metabo. Mycophenolic Acid 2.3 ug/mL 1.0 - 3.5 Mycophenolic Acid Glucuronide 28 ug/mL 15 - 125 [facility]FOR[facility] AT [facility]. ORIGINAL REPORT ON FILE IN LAB CONTAINS ADDITIONAL TEST SITE INFORMATION. Performed By: #### L801.1541 #### [facility] [address] [place], [address] ALLERGIES ALLERGIES DATE TYPE / CODE NAME / CODE REACTION SEVERITY SOURCE 12/22/2017 Drug No Known Unknown [facility] Allergy/4160 Allergies/F00 Hospital [address]74(SNOMED 4916059(RXNOR Repository CT) M) ENCOUNTERS ENCOUNTERS ADMIT/DISCHARGE ACCOUNT ADMITTING ENCOUNTER LOCATION SOURCE NUMBER CLASS 05/18/2018 [id number] [facility] ing:OLS.AVEB Repository 05/11/2018 [id number] [facility] Hospital ing:OLS.AVED Repository 05/04/2018 [id number] [facility] Hospital ing:OLS.AVED Repository 05/03/2018 [id number] [facility] Hospital ing:LAB Repository 04/27/2018 [id number] [facility] Hospital ing:OLS.AVED Repository 04/20/2018 [id number] [facility] Hospital ing:OLS.AVED Repository 04/14/2018 [id number] [facility] Repository 04/13/2018 [id number] [facility] Hospital ing:OLS.AVED Repository 04/11/2018/04/11/[id number] Hospital ing:LAB Repository 04/06/2018 [id number] [facility] Hospital ing:OLS.AVED Repository 03/30/2018 [id number] [facility] Hospital ing:OLS.AVED Repository 03/23/2018 [id number] [facility] Hospital ing:OLS.AVED Repository 03/16/2018 [id number] Ambulatory [facility] Hospital ing:OLS.AVED Repository 03/15/2018 [id number] Ambulatory [facility] Repository 03/09/2018 [id number] Ambulatory [facility] Hospital ing:OLS.AVED Repository 03/02/2018 [id number] Ambulatory [facility] Hospital ing:OLS.AVED Repository 02/23/2018/02/25/20 [id number] Emergency [place] [address] [facility] Hospital ing:ED Repository 02/23/2018 [id number] Ambulatory [facility] Hospital ing:OLS.AVED Repository 02/16/2018 [id number] Ambulatory [facility] Hospital ing:OLS.AVED Repository 02/09/2018 [id number] Ambulatory [facility] Hospital ing:OLS.AVED Repository 02/02/2018 [id number] Ambulatory [facility] Hospital ing:OLS.AVED Repository 01/16/2018/02/02/20 [id number] Gentry, Mikey Chi Inpatient [place] 18 Encounter [facility] ing:TCURoom: Repository XZQ45Kyy: 1 01/11/2018/01/17/20 [id number] [place], Jesica Inpatient [place] 18 Encounter [facility] Hospital ing:KC9Hctj: Repository UI188Pkt: 1 01/11/2018 [id number] [place], Jesica Ambulatory BMS[facility]:B [place] [facility] Repository 01/11/2018 [id number] [place], Jesica Ambulatory BMSBuilding:B [place] [facility] Repository 01/11/2018 [id number] White, Jesica Ambulatory BMSBuilding:B [place] [facility] Repository 01/11/2018 [id number] White, Jesica Ambulatory BMSBuilding:B [place] [facility] Repository 01/11/2018 [id number] [place], [place] Ambulatory BMSBuilding:B [place] [facility] Repository 01/11/2018 [id number] [place], [place]ica Ambulatory BMSBuilding:B [place] [facility] Hospital Repository 12/22/2017/12/23/19 [id number] Ambulatory BMSBuilding:B [place] 18 [facility] Repository 12/20/2017/12/21/19 [id number] Ambulatory [address] Hospital ing:LAB Repository 12/11/2017 [id number] Ambulatory [facility] Hospital ing:CT Repository 12/09/2017/12/10/19 [id number] Ambulatory BMSBuilding:B [place] 18 [facility] Repository 12/07/2017/12/08/19 [id number] Emergency [place] Hospital ing:ED Repository 12/02/2017 [id number] Ambulatory [facility] Repository 11/23/[id number] Maddie Ambulatory [facility] Repository 11/19/2017/11/20/19 [id number] Ambulatory [place] Hospital ing:LAB Repository 10/30/2017 [id number] Ambulatory [facility] Hospital ing:RAD.FUTUR Repository E 10/21/2017/10/22/19 [id number] Ambulatory [place] Hospital ing:LAB Repository 10/20/2017 [id number] Ambulatory [facility] Hospital ing:MTRAD Repository 09/28/2017/09/30/19 [id number] Emergency [place] Hospital ing:ED Repository 09/23/2017 [id number] Ambulatory [facility] Hospital ing:MTRAD Repository 09/20/2017/09/21/19 [id number] [facility] [facility] Repository 09/11/2017 [id number] Ambulatory BMSBuilding:B [place] [facility] Hospital Repository 09/11/2017/09/12/19 [id number] Jesica Russo Inpatient [place] 18 [facility] ing:XR2Umlz: Repository FT050Vzm: 1 09/11/2017 [id number] [place], Jesica Ambulatory BMSBuilding:B [place] GAGECF.[facility] Repository 09/09/2017 [id number] Ambulatory [facility] ing:MTRAD Repository 08/20/2017/08/21/19 [id number] Ambulatory [address] ing:LAB Repository 08/18/2017/08/19/19 [id number] Ari, Ambulatory [address] ing:PJ6Fgcn: Repository IQ275Bik: 1 08/18/2017 [id number] Ari, Ambulatory BMSBuilding:B [place] Dur[facility] Repository 08/04/2017/01/19/20 [id number] Ambulatory [address] ing:CCN Repository 07/28/2017/07/29/19 [id number] Emergency [address] ing:ED Repository 07/22/2017/07/23/19 [id number] Ambulatory [address] ing:LAB Repository 07/21/2017/07/22/19 [id number] Ambrosio Solis Ambulatory [address] ing:PCURoom: Repository BID544Els: 1 07/21/2017 [id number] Ambrosio Solis Ambulatory BMSBuilding:B [place] [facility]AL[facility] Repository 07/13/2017/07/19/19 [id number] [place], Jesica Inpatient [address] ing:CY1Gtab: Repository ZW591Cic: 1 07/13/2017 [id number] [place], Jesica Ambulatory BMSBuilding:B [place] [facility] Repository 07/13/2017 [id number] White, Jesica Ambulatory BMSBuilding:B [place] [facility] Repository 07/13/2017 [id number] White, Jesica Ambulatory BMSBuilding:B [place] [facility]AL[facility] Repository 07/13/2017 [id number] [place], Jesica Ambulatory BMSBuilding:B [place] [facility]AL[facility] Repository 07/13/2017 [id number] White, Jesica Ambulatory BMSBuilding:Frederic Charles [facility] Repository 07/13/2017 [id number] [place], [place] Ambulatory BMSBuilding:Frederic Charles [facility] Repository 07/12/2017 [id number] [facility] ing:US Repository 07/06/[id number] Jeanne Ambulatory [facility] Repository 06/18/2017/06/18/[id number] ing:LAB Repository 05/28/2017/05/28/19 [id number] Ambulatory [address] ing:LAB Repository PAYERS PAYERS ENCOUNTER GUARANTOR PAYER SUBSCRIBER SOURCE 05/18/2018 [place] L [id number] Primary Insurance:SELF NOT GIVENUNK [place] [address] PAY [address] Number: Effective Hospital [id number]: (330) Date:2018-05-18 Repository [phone] (HP) 05/11/2018 [place] L [id number] Primary SKYLER L STYPEDOB: [place] [address] Insurance:MEDICARE [id number] PART A BPolicy Number: Hospital [id number]: (330) [id number] Repository [phone] (HP) Date:2018-05-11 05/11/2018 Secondary SKYLER L STYPEDOB: [place] [facility] [id number] Community Number: Hospital [id number] Repository Date:1449-59-17UL [address] [place] [address] 369[address]ZC: 05/11/2018 Tertiary NOT GIVENUNK [place] Insurance:SELF PAY [facility] Number: Effective Repository Date:2018-05-11 05/04/2018 SKYLER L [id number] Primary SKYLER L STYPEDOB: [place] [address] Insurance:MEDICARE [id number] PART A BPolicy Number: Hospital [id number]: (330 [id number] Repository 262 (HP) Date:2018-05-04 05/04/2018 Secondary SKYLER L STYPEDOB: [place] Insurance:CIGNAPolicy [id number] Community Number: Hospital [id number] Repository Date:6596-36-94DB [address]WCCXMYOXSZR, [place] [address]XM: 05/04/2018 Tertiary NOT GIVENUNK [place] Insurance:SELF PAY Community [facility] Number: Effective Repository Date:2018-05-04 05/03/2018 [place] L [id number] Primary SKYLER L STYPEDOB: [place] [address] Insurance:MEDICARE [id number] [address] PART A BPolicy Number: Hospital [address]Gkw: 330 [id number] Repository [phone] () Date:2017-06-04 05/03/2018 Secondary SKYLER L STYPEDOB: [place] Insurance:CIGNAPolicy [id number] Community Number: Hospital [id number] Repository Date:6252-18-56GQ [address]WNBBKMRQE[address], [place] [address]BV: 05/03/2018 Tertiary NOT GIVENUNK [place] Insurance:SELF PAY Community [facility] Number: Effective Repository Date:2018-05-02 04/27/2018 SKYLER L [id number] Primary SKYLER L STYPEDOB: [place] [address] Insurance:MEDICARE [id number] [address] PART A BPolicy Number: Hospital [address]Puo: 330 [id number] Repository 168 () Date:2018-04-27 04/27/2018 Secondary SKYLER L STYPEDOB: [place] Insurance:CIGNAPolicy [id number] Community Number: Hospital [id number] Repository Date:0539-65-94SO [address]IWHPJGQBWHE, [place] [address]PM: 04/27/2018 Tertiary NOT GIVENUNK [place] Insurance:SELF PAY Community [facility] Number: Effective Repository Date:2018-04-27 04/20/2018 [place] L [id number] Primary SKYLER L STYPEDOB: [place] [facility] Insurance:MEDICARE [id number] [address] PART A BPolicy Number: Hospital [id number]: 330) [id number] Repository [phone] (HP) Date:2018-04-20 04/20/2018 Secondary SKYLER L STYPEDOB: [place] Insurance:[facility] [id number] Community Number: Hospital [id number] Repository Date:8334-46-44ZO [address]FJMMAZVVMTM, [place] [address]KR: 04/20/2018 [facility] [place] Insurance:SELF PAY [facility] Number: Effective Repository Date:2018-04-20 04/14/2018 SKYLER L STYPEDOB: Primary SKYLER L STYPEDOB: University Insurance:[employer] [id number] [place] [address] PlanPolicy Number: 3 [facility] Repository [address] # [id number] [address] # [facility] [place] Date:6717-90-75Wdtb[address] [address]Hhi: (701) Name:[facility] [address]Bsz: () 279377Dulmlslxtet [place] [address] () [address]RO: 04/14/2018 Secondary SKYLER L STYPEDOB: University Insurance:[facility] [id number] [place], [place] [address] Repository Number: APT. # [id number] [address] [place] [address] Date:Plan Name:[facility] [address]Zax: () 04/14/2018 Tertiary SKYLER L STYPEDOB: University Insurance:MedicarePoli [id number] Hospitals cy Number: 3 [facility] Repository [id number] [address]. # Date:Plan Name:[facility] [place], [place] [address]Uwo: () 04/14/2018 Tertiary SKYLER L STYPEDOB: University Insurance:MedicarePoli [id number] Hospitals cy Number: 3 [address] Repository [id number] [address] # Date:Plan Name:Candis De La Garza [address] [place] [address]Qky: (HP) 04/13/2018 SKYLER L [id number] Primary SKYLER L STYPEDOB: [place] [address] Insurance:MEDICARE [id number] [address] PART A BPolicy Number: Hospital [id number]: 330 [id number] Repository 4736 (HP) Date:2018-04-13 04/13/2018 Secondary SKYLER L STYPEDOB: [place] Insurance:CIGNAPolicy [id number] Community Number: Hospital [id number] Repository Date:0987-38-50EQ [address] [place] [address]AE: 04/13/2018 Tertiary NOT GIVENUNK [place] Insurance:SELF PAY Community [facility] Number: Effective Repository Date:2018-04-13 04/11/2018 SKYLER L [id number] Primary SKYLER L STYPEDOB: [place] [address] Insurance:MEDICARE [id number] [address] PART A BPolicy Number: Hospital [id number]: (330 [id number] Repository -[phone] () Date:2017-06-04 04/11/2018 Secondary SKYLER L STYPEDOB: [place] Insurance:CIGNAPolicy [id number] Community Number: Hospital [id number] Repository Date:4431-35-75UO [address]EHUBVZQYYBX, [place] [address]AB: 04/11/2018 Tertiary NOT GIVENUNK [place] Insurance:SELF PAY Community [facility] Number: Effective Repository Date:2018-01-04 04/06/2018 SKYL[place] L [id number] Primary SKYLER L STYPEDOB: [place] [address] Insurance:MEDICARE [id number] [address] PART A BPolicy Number: Hospital [id number]: 330 [id number] Repository [phone] (HP) Date:2018-04-06 04/06/2018 Secondary SKYLER L STYPEDOB: [place] Insurance:CIGNAPolicy [id number] Community Number: Hospital [id number] Repository Date:8775-89-56[address] [place] [place] [address]NI: 04/06/2018 Tertiary NOT GIVENUNK [place] Insurance:SELF PAY Community [facility] Number: Effective Repository Date:2018-04-06 03/30/2018 SKYLER L [id number] Primary SKYLER L STYPEDOB: [place] [address] Insurance:MEDICARE [id number] [address] PART A BPolicy Number: Hospital [id number]: (343) [id number] Repository () Date:2018-03-30 03/30/2018 Secondary SKYLER L STYPEDOB: [place] Insurance:CIGNAPolicy [id number] Community Number: Hospital [id number] Repository Date:4849-84-90XQ [address]TWQOCAKSWQG, [place] [address]LL: 03/30/2018 Tertiary NOT GIVENUNK [place] Insurance:SELF PAY Community [facility] Number: Effective Repository Date:2018-03-30 03/23/2018 [place]YL[place] L [id number] Primary SKYLER L STYPEDOB: [place] [address] Insurance:MEDICARE [id number] [address] PART A BPolicy Number: Hospital [id number]: (324) [id number] Repository 999 () Date:2018-03-23 03/23/2018 Secondary SKYLER L STYPEDOB: [place] Insurance:CIGNAPolicy [id number] Community Number: [facility] [id number] Repository Date:6741-48-85CS [address]ZWZSCZQHDZV, [place] [address]UM: 03/23/2018 Tertiary NOT GIVENUNK [place] Insurance:SELF PAY Community [facility] Number: Effective Repository Date:2018-03-23 03/16/2018 [place] L [id number] Primary Insurance:SELF NOT GIVENUNK [place] [address] [facility] [place] [place] Number[facility] Effective Hospital [id number]: (330) Date:2018-03-16 Repository () 03/15/2018 SKYLER L STYPEDOB: Primary SKYLER L STYPEDOB: [place] Insurance:MedicarePoli [id number] [place] [address] cy Number: 3 [facility] Repository [address] # [id number] [address], [place] Date:Plan Name:Candis Prieto [address] [place] [address]Agq: [phone]: (HP) (HP) 03/15/2018 Secondary SKYLER L STYPEDOB: [place] Insurance:MedicarePoli [id number] Hospitals cy Number: 3 [facility] Repository [id number] [address] # Date:Plan Name:Candis De La Garza [address] [place] [address]Ihp: () 03/15/2018 Tertiary SKYLER L STYPEDOB: University Insurance:[facility] [id number] [facility] PlanPolicy Number: 3 [facility] Repository [id number] [address]. # Date:3862-51-92Drqv [address], [place] Name:[facility] [address]Gbv: [phone]) 249[address]Ksmsunlgxfw, [place] -[address] () [address]DN: 03/15/2018 Tertiary SKYLER L STYPEDOB: University Insurance:[facility] [id number] Hospitals HealthcarePolicy [address] [place] [address] Repository Number: APT. # [id number] [place], [place] Date:Plan Name:[facility] [address]Jed: () 03/09/2018 [place] L [id number] Primary Insurance:SELF NOT GIVENUNK [facility] PAY INSURANCEPolPending [facility] [place] [place] Number: Effective Hospital [id number]: (330) Date:2018-03-09 Repository 7 () 03/02/2018 SKYLER L [id number] Primary Insurance:SELF NOT GIVENUNK [place] [address] PAY [address], [place] Number: Effective Hospital [id number]: (330) Date:2018-03-02 Repository (HP) 02/23/2018 SKYLER L [id number] Primary SKYLER L STYPEDOB: [place] [address] Insurance:MEDICARE [id number] [facility] [address], [place] PART A BPolicy Number: Hospital [id number]: (330) [id number] Repository (HP) Date:2018-02-23 02/23/2018 Secondary SKYLER L STYPEDOB: [place] Insurance:CIGNAPolicy [id number] Community Number: Hospital [id number] Repository Date:3510-59-28BS [facility] [address]34[address]MHHZVGWIQWH, [place] [address]KN: 02/23/2018 Tertiary NOT GIVENUNK [place] Insurance:SELF PAY [facility] Number: Effective Repository Date:2018-02-23 02/23/2018 SKYLER L [id number] Primary Insurance:SELF NOT GIVENUNK [place] [address] PAY [address] Number: Effective Hospital [id number]: (330) Date:2018-02-23 Repository () 02/16/2018 SKYLER L [id number] Primary Insurance:SELF NOT GIVENUNK [place] [address] PAY [address] Number: Effective Hospital [id number]: (330) Date:2018-02-16 Repository (HP) 02/09/2018 SKYLER L [id number] Primary Insurance:SELF NOT GIVENUNK [place] [address] PAY [address], [place] Number: Effective Hospital [id number]: (330) Date:2018-02-09 Repository (HP) 02/02/2018 SKYLER L [id number] Primary Insurance:SELF NOT GIVENUNK [place] [address] PAY [address], [place] Number: Effective Hospital [phone]: (330) Date:2018-02-02 Repository (HP) 01/16/2018 SKYLER L [id number] Primary SKYLER L STYPEDOB: [place] [address] Insurance:MEDICARE [id number] [address] PART A BPolicy Number: Hospital [address]Oyn: 330 [id number] Repository () Date:2018-01-16 01/16/2018 Secondary SKYLER L STYPEDOB: [place] Insurance:CIGNAPolicy [id number] Community Number: Hospital [id number] Repository Date:0501-31-24DR [address]ZWVCLGHRKNC, [place] [address]MF: 01/16/2018 Tertiary NOT GIVENUNK [place] Insurance:SELF PAY Community [facility] Number: Effective Repository Date:2018-01-16 01/11/2018 SKYL[place] L [id number] Primary SKYLER L STYPEDOB: [place] [address] Insurance:MEDICARE [id number] [address] PART A BPolicy Number: Hospital [id number]: 330 [id number] Repository () Date:2018-01-11 01/11/2018 Secondary SKYLER L STYPEDOB: [place] Insurance:CIGNAPolicy [id number] Community Number: Hospital [id number] Repository Date:8766-99-99ZA [address]MWJQEJCFDBO, [place] [address]FM: 01/11/2018 Tertiary NOT GIVENUNK [place] Insurance:SELF PAY Community [facility] Number: Effective Repository Date:2018-01-11 01/11/2018 SKYLER L [id number] Primary SKYLER L STYPEDOB: [place] [address] Insurance:MEDICARE [id number] [address] PART A BPolicy Number: Hospital [address]Ltc: 330 [id number] Repository () Date:2018-01-11 01/11/2018 Secondary SKYLER L STYPEDOB: [place] Insurance:CIGNAPolicy 5330-21-85YYC Community Number: Hospital [id number] Repository Date:2969-42-77BT [address]TWJOLZLLZME, [place] [address]NS: 01/11/2018 Tertiary NOT GIVENUNK [place] Insurance:SELF PAY Community [facility] Number: Effective Repository Date:2018-01-11 01/11/2018 SKYLER L [id number] Primary SKYLER L STYPEDOB: [place] [address] Insurance:MEDICARE [id number] [address] PART A BPolicy Number: Hospital [id number]: (571) [id number] Repository [phone] () Date:2018-01-11 01/11/2018 Secondary SKYLER L STYPEDOB: [place] Insurance:CIGNAPolicy [id number] Community Number: [facility] [id number] Repository Date:7360-27-92YW [facility] [place]CUTHUF[place]YBL, [place] [address]NV: 01/11/2018 Tertiary NOT GIVENUNK [place] Insurance:SELF PAY Community [facility] Number: Effective Repository Date:2018-01-11 01/11/2018 SKYLER L [id number] Primary SKYLER L STYPEDOB: [place] [address] Insurance:MEDICARE [id number] [address] PART A BPolicy Number: Hospital [id number]: [phone]) [id number] Repository [phone] () Date:2018-01-11 01/11/2018 Secondary SKYLER L STYPEDOB: [place] Insurance:CIGNAPolicy [id number] Community Number: [facility] [id number] Repository Date:5390-24-02PA [address]KFZJAJESACO, [place] [address]AF: 01/11/2018 Tertiary NOT GIVENUNK [place] Insurance:SELF PAY Community [facility] Number: Effective Repository Date:2018-01-11 01/11/2018 SKYLER L [id number] Primary SKYLER L STYPEDOB: [place] [address] Insurance:MEDICARE [id number] [address] PART A BPolicy Number: Hospital [address]Kdo: [phone] [id number] Repository [phone] (HP) Date:2018-01-11 01/11/2018 Secondary SKYLER L STYPEDOB: [place] Insurance:CIGNAPolicy [id number] Community Number: Hospital [id number] Repository Date:0928-09-15RN [address]MSTKMNJIOCZ, [place] [address]ZX: 01/11/2018 Tertiary NOT GIVENUNK [place] Insurance:SELF PAY Community [facility] Number: Effective Repository Date:2018-01-11 01/11/2018 SKYLER L [id number] Primary SKYLER L STYPEDOB: [place] [address] Insurance:MEDICARE [id number] [address] PART A BPolicy Number: Hospital [address]Joj: ([phone]) [id number] Repository [phone] () Date:2018-01-11 01/11/2018 Secondary SKYLER L STYPEDOB: [place] Insurance:CIGNAPolicy [id number] Community Number: Hospital [id number] Repository Date:0531-74-27[address]GCTDWXIKQZG, [place] [address]AX: 01/11/2018 Tertiary NOT GIVENUNK [place] Insurance:SELF PAY Community [facility] Number: Effective Repository Date:2018-01-11 01/11/2018 SKYLER L [id number] Primary SKYLER L STYPEDOB: [place] [address] Insurance:MEDICARE [id number] [address] PART A BPolicy Number: Hospital [id number]: (194) [id number] Repository [phone] () Date:2018-01-11 01/11/2018 Secondary SKYLER L STYPEDOB: [place] Insurance:CIGNAPolicy [id number] Community Number: Hospital [id number] Repository Date:6821-79-55NP [address]IEKBKEBZHAE, [place] [address]DZ: 01/11/2018 Tertiary NOT GIVENUNK [place] Insurance:SELF PAY Community [facility] Number: Effective Repository Date:2018-01-11 12/22/2017 SKYLER L [id number] Primary SKYLER L STYPEDOB: [place] [address] Insurance:MEDICARE [id number] [address] PART A BPolicy Number: Hospital [address]Jmr: [id number] Repository [phone] () Date:2017-12-09 12/22/2017 Secondary SKYLER L STYPEDOB: [place] Insurance:CIGNAPolicy [id number] Community Number: Hospital [id number] Repository Date:9683-95-26HE [address] [address]XR: 12/22/2017 Tertiary NOT GIVENUNK [place] Insurance:SELF PAY Community [facility] Number: Effective Repository Date:2017-12-14 12/20/2017 SKYLER L [id number] Primary SKYLER L STYPEDOB: [place] [address] Insurance:MEDICARE [id number] [address] PART A BPolicy Number: Hospital [id number]: [phone] [id number] Repository () Date:2017-06-04 12/20/2017 Secondary SKYLER L STYPEDOB: [place] Insurance:CIGNAPolicy [id number] Community Number: Hospital [id number] Repository Date:9713-47-27DQ [address] [address]EL: 12/20/2017 Tertiary NOT GIVENUNK [place] Insurance:SELF PAY Community [facility] Number: Effective Repository Date:2017-12-02 12/11/2017 Skyler L [id number] Primary Skyler L StypeDOB: [place] [address] Insurance:MEDICARE [id number] [address] PART A BPolicy Number: Hospital [id number]: ([phone]) [id number] Repository [phone] () Date:2017-12-10 12/11/2017 Secondary Skyler L StypeDOB: [place] Insurance:CIGNAPolicy [id number] Community Number: Hospital [id number] Repository Date:7369-79-95NL [address]GTHRDBKHKUC, [place] [address]YZ: 12/11/2017 Tertiary NOT GIVENUNK [place] Insurance:SELF PAY Community [facility] Number: Effective Repository Date:2017-12-10 12/09/2017 SKYLER L [id number] Primary SKYLER L STYPEDOB: [place] [address] Insurance:MEDICARE [id number] [address] PART A BPolicy Number: Hospital [id number]: (691) [id number] Repository [phone] () Date:2017-11-05 12/09/2017 Secondary SKYLER L STYPEDOB: [place] Insurance:CIGNAPolicy [id number] Community Number: [facility] [id number] Repository Date:2380-39-78AC [address] [place] [address]TC: 12/09/2017 Tertiary NOT GIVENUNK [place] Insurance:SELF PAY Community [facility] Number: Effective Repository Date:2017-12-02 12/07/2017 SKYLER L [id number] Primary SKYLER L STYPEDOB: [place] [address] Insurance:MEDICARE [id number] [address] PART A BPolicy Number: Hospital [address]Nkt: [phone] [id number] Repository [phone] () Date:2017-12-07 12/07/2017 Secondary SKYLER L STYPEDOB: [place] Insurance:CIGNAPolicy [id number] Community Number: [facility] [id number] Repository Date:4791-38-81MC [address]HZSFHLTWHDN, [place] [address]YP: 12/07/2017 Tertiary NOT GIVENUNK [place] Insurance:SELF PAY Community [facility] Number: Effective Repository Date:2017-12-07 12/02/2017 SKYLER L [id number] Primary SKYLER L STYPEDOB: [place] [address] Insurance:MEDICARE [id number] [address] PART A BPolicy Number: Hospital 317[address]Bxw: ([phone]) [id number] Repository [phone] () Date:2017-12-02 12/02/2017 Secondary SKYLER L STYPEDOB: [place] Insurance:CIGNAPolicy [id number] Community Number: Hospital [id number] Repository Date:1826-65-68XE [address]DPPJXGFEIIX, [place] [address]GM: 12/02/2017 Tertiary NOT GIVENUNK [place] Insurance:SELF PAY [facility] Number: Effective Repository Date:2017-12-02 11/23/2017 SKYLER L STYPEDOB: Primary SKYLER L STYPEDOB: [place] Insurance:MedicarePoli [id number] [place] [address] cy Number: [address] [place] [address] Repository [address] # [id number] [address] # [place], [place] Date:[facility] [address] [place] [address]Qyc: [phone]: (HP) [phone] (HP) 11/23/2017 Secondary SKYLER L STYPEDOB: [place] Insurance:MedicarePoli [id number] [facility] cy Number: [address] [facility] Repository [id number] [address] # Date:Plan Name:[facility] [address], [place] [address]Txp: (HP) 11/23/2017 Tertiary SKYLER L STYPEDOB: [place] Insurance:[facility] [id number] [facility] PlanPolicy Number: 3 [facility] Repository [id number] [address] # Date:2275-56-89Uozx [address], [place] Name:[facility] [address]Htr: [phone], [place] [phone] (HP) [address]LF: 11/23/2017 Tertiary SKYLER L STYPEDOB: [place] Insurance:[facility] [id number] [facility] HealthcarePolicy [address] [place] [address] Repository Number: APT. # [id number] [place], [place] Date:Plan Name:[place] [id number]: (HP) 11/19/2017 SKYLER L [id number] Primary SKYLER L STYPEDOB: [place] [facility] Insurance:MEDICARE [id number] Community [address] PART A BPolicy Number: Hospital [address]Gus: ([phone]) [id number] Repository [phone] () Date:2017-06-04 11/19/2017 Secondary SKYLER L STYPEDOB: [place] Insurance:CIGNAPolicy [id number] Community Number: Hospital [id number] Repository Date:0812-44-46BP [address]WYDRDXSZXTH, [place] [address]VH: 11/19/2017 Tertiary NOT GIVENUNK [place] Insurance:SELF PAY Community [facility] Hospital Number: Effective Repository Date:2017-10-29 10/30/2017 SKYLER L [id number] Primary SKYLER L STYPEDOB: [place] [address] Insurance:MEDICARE [id number] PART A BPolicy Number: Hospital [address]Reh: [id number] Repository [phone] () Date:2017-09-13 10/30/2017 Secondary SKYLER L STYPEDOB: [place] Insurance:CIGNAPolicy [id number] Community Number: Hospital [id number] Repository Date:1293-87-44MB [address]VVVBBROHDAC, [place] [address]YP: 10/30/2017 Tertiary NOT GIVENUNK [place] Insurance:SELF PAY Community [facility] Number: Effective Repository Date:2017-09-13 10/21/2017 SKYLER L [id number] Primary SKYLER L STYPEDOB: [place] [address] Insurance:MEDICARE [id number] [address] PART A BPolicy Number: Hospital [address]Nbw: [phone]) [id number] Repository [phone] () Date:2017-06-04 10/21/2017 Secondary SKYLER L STYPEDOB: [place] Insurance:CIGNAPolicy [id number] Community Number: Hospital [id number] Repository Date:0004-37-09MJ [address]MFKPUNRYVUD, [place] [address]JW: 10/21/2017 Tertiary NOT GIVENUNK [place] Insurance:SELF PAY Community [facility] Hospital Number: Effective Repository Date:2017-09-30 10/20/2017 SKYLER L [id number] Primary SKYLER L STYPEDOB: [place] [address] Insurance:MEDICARE [id number] [address] PART A BPolicy Number: Hospital [address]Jnz: [phone] [id number] Repository [phone] (HP) Date:2017-10-20 10/20/2017 Secondary SKYLER L STYPEDOB: [place] Insurance:CIGNAPolicy [id number] Community Number: Hospital [id number] Repository Date:9491-60-94KR [address]GKOROZWKZVN, [place] [address]QE: 10/20/2017 Tertiary NOT GIVENUNK [place] Insurance:SELF PAY Community [facility] Hospital Number: Effective Repository Date:2017-10-20 09/28/2017 SKYLER L [id number] Primary SKYLER L STYPEDOB: [place] [address] Insurance:MEDICARE [id number] [address] PART A BPolicy Number: Hospital [address]Vag: [id number] Repository [phone] Date:2017-09-28 () 09/28/2017 Secondary SKYLER L STYPEDOB: [place] Insurance:CIGNAPolicy [id number] Community Number: Hospital [id number] Repository Date:4306-94-95UM [address]HJJSZSCQWNJ, [place] [address]WP: 09/28/2017 Tertiary NOT GIVENUNK [place] Insurance:SELF PAY Community [facility] Hospital Number: Effective Repository Date:2017-09-28 09/23/2017 SKYLER L [id number] Primary SKYLER L STYPEDOB: [place] [address] Insurance:MEDICARE [id number] [address] PART A BPolicy Number: Hospital [id number]: [id number] Repository [phone] Date:2017-09-23 () 09/23/2017 Secondary SKYLER L STYPEDOB: [place] Insurance:CIGNAPolicy [id number] Community Number: Hospital [id number] Repository Date:5315-16-25IB [address]WSHGKUVCHQU, [place] [address]HH: 09/23/2017 Tertiary NOT GIVENUNK [place] Insurance:SELF PAY Community [facility] Hospital Number: Effective Repository Date:2017-09-23 09/20/2017 SKYLER L [id number] Primary SKYLER L STYPEDOB: [place] [address] Insurance:MEDICARE [id number] [address] PART A BPolicy Number: Hospital [address]Lnk: [id number] Repository [phone] Date:2017-06-04 () 09/20/2017 Secondary SKYLER L STYPEDOB: [place] Insurance:CIGNAPolicy [id number] Community Number: Hospital [id number] Repository Date:5744-92-14UW [address]KPRYWXCRLPW, [place] [address]TC: 09/20/2017 Tertiary NOT GIVENUNK [place] Insurance:SELF PAY Community [facility] Hospital Number: Effective Repository Date:2017-08-31 09/11/2017 SKYLER L [id number] Primary SKYLER L STYPEDOB: [place] [address] Insurance:MEDICARE [id number] [address] PART A BPolicy Number: Hospital [address]Fcb: [id number] Repository [phone] Date:2017-09-10 () 09/11/2017 Secondary SKYLER L STYPEDOB: [place] Insurance:CIGNAPolicy [id number] Community Number: Hospital [id number] Repository Date:8434-63-58OG [address]GFNYHXOCQZZ, [place] [address]HS: 09/11/2017 Tertiary NOT GIVENUNK [place] Insurance:SELF PAY Community [facility] Hospital Number: Effective Repository Date:2017-09-11 09/11/2017 SKYLER L [id number] Primary SKYLER L STYPEDOB: [place] [address] Insurance:MEDICARE [id number] [address] PART A BPolicy Number: Hospital [id number]: ([phone]) [id number] Repository [phone] () Date:2017-09-10 09/11/2017 Secondary SKYLER L STYPEDOB: [place] Insurance:CIGNAPolicy [id number] Community Number: Hospital [id number] Repository Date:6570-25-41CI [address]BZFKAEDUSKU, [place] [address]BK: 09/11/2017 Tertiary NOT GIVENUNK [place] Insurance:SELF PAY Community [facility] Hospital Number: Effective Repository Date:2017-09-10 09/11/2017 SKYLER L [id number] Primary SKYLER L STYPEDOB: [place] [address] Insurance:MEDICARE [id number] [address] PART A BPolicy Number: Hospital [address]Wyy: [id number] Repository [phone] Date:2017-09-10 () 09/11/2017 Secondary SKYLER L STYPEDOB: [place] Insurance:CIGNAPolicy [id number] Community Number: Hospital [id number] Repository Date:6352-66-69WC [address]TXLQIONUGHE, [place] [address]PP: 09/11/2017 Tertiary NOT GIVENUNK [place] Insurance:SELF PAY Community [facility] Hospital Number: Effective Repository Date:2017-09-11 09/09/2017 Skyler L [id number] Primary Skyler L StypeDOB: [place] [address] Insurance:MEDICARE [id number] [address] PART A BPolicy Number: Hospital 90990Zvz: [id number] Repository [phone] Date:2017-09-09 () 09/09/2017 Secondary Skyler L StypeDOB: [place] Insurance:CIGNAPolicy [id number] Community Number: Hospital [id number] Repository Date:9862-35-77WT [address]OELWGYXNNKF, [place] [address]MQ: 09/09/2017 Tertiary NOT GIVENUNK [place] Insurance:SELF PAY Community [facility] Hospital Number: Effective Repository Date:2017-09-09 08/20/2017 Skyler L [id number] Primary Skyler L StypeDOB: [place] [address] Insurance:MEDICARE [id number] [address] PART A BPolicy Number: Hospital [address]Trp: [id number] Repository [phone] Date:2017-06-04 () 08/20/2017 Secondary Skyler L StypeDOB: [place] Insurance:CIGNAPolicy [id number] Community Number: Hospital [id number] Repository Date:5116-29-92HZ [address]KXNZZGCSYTU, [place] [address]QJ: 08/20/2017 Tertiary NOT GIVENUNK [place] Insurance:SELF PAY Community [facility] Hospital Number: Effective Repository Date:2017-08-02 08/18/2017 SKYLER L [id number] Primary SKYLER L STYPEDOB: [place] [address] Insurance:MEDICARE [id number] [address] PART A BPolicy Number: Hospital [address]Vev: (199) [id number] Repository [phone] () Date:2017-08-17 08/18/2017 Secondary SKYLER L STYPEDOB: [place] Insurance:CIGNAPolicy [id number] Community Number: Hospital [id number] Repository Date:2444-27-59VI [address]PIOOKJFQSOA, [place] [address]UY: 08/18/2017 Tertiary NOT GIVENUNK [place] Insurance:SELF PAY Community [facility] Hospital Number: Effective Repository Date:2017-08-17 08/18/2017 Skyler L [id number] Primary Skyler L StypeDOB: [place] [address] Insurance:MEDICARE [id number] [address] PART A BPolicy Number: Hospital [id number]: [id number] Repository [phone] Date:2017-08-17 (HP) 08/18/2017 Secondary Skyler L StypeDOB: [place] Insurance:CIGNAPolicy [id number] Community Number: Hospital [id number] Repository Date:6344-33-34EP [address]OCYXWOVXIDV, [place] [address]IL: 08/18/2017 Tertiary NOT GIVENUNK [place] Insurance:SELF PAY Community [facility] Hospital Number: Effective Repository Date:2017-08-18 08/04/2017 Skyler L [id number] Primary Skyler L StypeDOB: [place] [address] Insurance:MEDICARE [id number] [address] PART A BPolicy Number: Hospital [address]Dse: [id number] Repository [phone] Date:2017-08-04 () 08/04/2017 Secondary Skyler L StypeDOB: [place] Insurance:CIGNAPolicy [id number] Community Number: Hospital [id number] Repository Date:4179-85-58AL [address]AKNNIWOURQP, [place] [address]ES: 08/04/2017 Tertiary NOT GIVENUNK [place] Insurance:SELF PAY Community [facility] Hospital Number: Effective Repository Date:2017-08-04 07/28/2017 Skyler L [id number] Primary Skyler L StypeDOB: [place] [address] Insurance:MEDICARE [id number] [address] PART A BPolicy Number: Hospital [id number]: [id number] Repository [phone] Date:2017-07-28 () 07/28/2017 Secondary Skyler L StypeDOB: [place] Insurance:CIGNAPolicy [id number] Community Number: Hospital [id number] Repository Date:1135-12-73WD [address]BIEQVNFCXQB, [place] [address]GV: 07/28/2017 Tertiary NOT GIVENUNK [place] Insurance:SELF PAY Community [facility] Hospital Number: Effective Repository Date:2017-07-28 07/22/2017 Skyler L [id number] Primary Skyler L StypeDOB: [place] [address] Insurance:MEDICARE [id number] [address] PART A BPolicy Number: Hospital [address]Ufv: [id number] Repository [phone] Date:2017-06-04 () 07/22/2017 Secondary Skyler L StypeDOB: [place] Insurance:CIGNAPolicy [id number] Community Number: Hospital [id number] Repository Date:9353-54-00GC [address]BCRGDVZWDKY, [place] [address]NF: 07/22/2017 Tertiary NOT GIVENUNK [place] Insurance:SELF PAY Community [facility] Number: Effective Repository Date:2017-07-02 07/21/2017 Skyler L [id number] Primary Skyler L StypeDOB: [place] [address] Insurance:MEDICARE [id number] [address] PART A BPolicy Number: Hospital [id number]: [id number] Repository [phone] Date:2017-07-20 () 07/21/2017 Secondary Skyler L StypeDOB: [place] Insurance:CIGNAPolicy [id number] Community Number: Hospital [id number] Repository Date:4202-71-55IV [address]IPFVBEBEOAH, [place] [address]UE: 07/21/2017 Tertiary NOT GIVENUNK [place] Insurance:SELF PAY Community [facility] Hospital Number: Effective Repository Date:2017-07-20 07/21/2017 Skyler L [id number] Primary [place]yler L StypeDOB: [place] [address] Insurance:MEDICARE [id number] [address] PART A BPolicy Number: Hospital [id number]: [id number] Repository [phone] Date:2017-07-20 () 07/21/2017 Secondary Skyler L StypeDOB: [place] Insurance:CIGNAPolicy [id number] Community Number: Hospital [id number] Repository Date:7170-54-45FA [address]MMDKWBIHXBO [place] [address]AL: 07/21/2017 Tertiary NOT GIVENUNK [place] Insurance:SELF PAY Community [facility] Hospital Number: Effective Repository Date:2017-07-21 07/13/2017 SKYLER L [id number] Primary SKYLER L STYPEDOB: [place] [address] Insurance:MEDICARE [id number] [address] PART A BPolicy Number: Hospital [address]Rbf: ([id number]) [id number] Repository [phone] () Date:2017-07-13 07/13/2017 Secondary SKYLER L STYPEDOB: [place] Insurance:CIGNAPolicy [id number] Community Number: Hospital [id number] Repository Date:6363-95-71PJ [address]ZBVFHGBMXNO, [place] [address]MN: 07/13/2017 Tertiary NOT GIVENUNK [place] Insurance:SELF PAY Community [facility] Hospital Number: Effective Repository Date:2017-07-13 07/13/2017 Skyler L [id number] Primary [place]yler L StypeDOB: [place] [address] Insurance:MEDICARE [id number] [address] PART A BPolicy Number: Hospital [address]Sdu: [id number] Repository [phone] Date:2017-07-13 () 07/13/2017 Secondary Skyler L StypeDOB: [place] Insurance:CIGNAPolicy [id number] Community Number: [facility] [id number] Repository Date:5462-81-96ND [address]YKCBWLDVYUV, [place] [address]XK: 07/13/2017 Tertiary NOT GIVENUNK [place] Insurance:SELF PAY Community [facility] Hospital Number: Effective Repository Date:2017-07-13 07/13/2017 Skyler L [id number] Primary Skyler L StypeDOB: [place] [address] Insurance:MEDICARE [id number] [address] PART A BPolicy Number: Hospital [id number]: [id number] Repository [phone] Date:2017-07-13 () 07/13/2017 Secondary Skyler L StypeDOB: [place] Insurance:CIGNAPolicy [id number] Community Number: Hospital [id number] Repository Date:4914-09-69EM [address]MUNHNKYZRDR, [place] [address]VG: 07/13/2017 Tertiary NOT GIVENUNK [place] Insurance:SELF PAY Community [facility] Hospital Number: Effective Repository Date:2017-07-13 07/13/2017 Skyler L [id number] Primary Skyler L StypeDOB: [place] [address] Insurance:MEDICARE [id number] [address] PART A BPolicy Number: Hospital [id number]: [id number] Repository [phone] Date:2017-07-13 () 07/13/2017 Secondary Skyler L StypeDOB: [place] Insurance:CIGNAPolicy [id number] Community Number: Hospital [id number] Repository Date:5065-33-09QX [address]GDWOIKLEHZQ, [place] [address]QX: 07/13/2017 Tertiary NOT GIVENUNK [place] Insurance:SELF PAY Community [facility] Hospital Number: Effective Repository Date:2017-07-13 07/13/2017 Skyler L [id number] Primary Skyler L StypeDOB: [place] [address] Insurance:MEDICARE [id number] [address] PART A BPolicy Number: Hospital [address]Muw: [id number] Repository [phone] Date:2017-07-13 () 07/13/2017 Secondary Skyler L StypeDOB: [place] Insurance:CIGNAPolicy [id number] Community Number: Hospital [id number] Repository Date:0030-54-68XJ [address]LUWRTGXXCFW, [place] [address]GJ: 07/13/2017 Tertiary NOT GIVENUNK [place] Insurance:SELF PAY Community [facility] Hospital Number: Effective Repository Date:2017-07-13 07/13/2017 Skyler L [id number] Primary Skyler L StypeDOB: [place] [address] Insurance:MEDICARE [id number] [address] PART A BPolicy Number: Hospital [address]Hln: [id number] Repository [phone] Date:2017-07-13 () 07/13/2017 Secondary Skyler L StypeDOB: [place] Insurance:CIGNAPolicy [id number] Community Number: Hospital [id number] Repository Date:0432-04-50[id number], [place] [address]DH: 07/13/2017 Tertiary NOT GIVENUNK [place] Insurance:SELF PAY [facility]: Effective Repository Date:2017-07-13 07/13/2017 Skyler L [id number] Primary Skyler L StypeDOB: [address] [address] Insurance:MEDICARE [id number] [address] PART A BPolicy Number: Hospital [id number]: [id number] Repository [phone] Date:2017-07-13 () 07/13/2017 Secondary Skyler L StypeDOB: Arma Insurance:CIGNAPolicy [id number] Community Number: Hospital [id number] Repository Date:0380-38-44[address], [place] [address]AH: 07/13/2017 Tertiary NOT GIVENUNK Ar[place] Insurance:SELF PAY [facility] [facility] Number: Effective Repository Date:2017-07-13 07/12/2017 Skyler L [id number] Primary Skyler L StypeDOB: [address] Insurance:MEDICARE [id number] [address] PART A BPolicy Number: Hospital [id number]: [id number] Repository [phone] Date:2017-06-29 () 07/12/2017 Secondary Skyler L StypeDOB: Mel[place] Insurance:CIGNAPolicy [id number] Number: Hospital [id number] Repository Date:[id number], [place] [address]WU: 07/12/2017 Tertiary NOT GIVENUNK [place] Insurance:SELF PAY [facility] Number: Effective Repository Date:2017-06-29 07/06/2017 SKYLER L STYPEDOB: Primary SKYLER L STYPEDOB: [place] [id number] Insurance:MedicarePoli [id number] [place] [address] cy Number: 3 [facility] Repository [id number] [place], [place] Date:Plan Name:Candis Prieto [address] [place] [address]Yfe: [phone]: (HP) [phone] (HP) 07/06/2017 Secondary SKYLER L STYPEDOB: University Insurance:MedicarePoli [id number] Hospitals cy Number: 3 [facility] Repository [id number] Date:[facility] [address] [place] [phone]: () 07/06/2017 Tertiary SKYLER L STYPEDOB: University Insurance:[facility] [id number] [facility] PlanPolicy Number: 3 [facility] Repository [id number] # Date:[id number] Name:[facility] [address] [address]Zyi: [phone], [place] [phone] () [address]NW: 06/18/2017 Skyler L [id number] Primary Skyler L StypeDOB: [place] [facility] Insurance:MEDICARE [id number] PART A BPolicy Number: Hospital [id number]: [id number] Repository [phone] Date:2017-06-04 (HP) 06/18/2017 Secondary Skyler L StypeDOB: Ar[place] Insurance:[facility] [id number] Community Number: Hospital [id number] Repository Date:2151-86-79[address], [place] [address]GM: 06/18/2017 Tertiary NOT GIVENUNK [place] Insurance:SELF PAY Community [facility] Number: Effective Repository Date:2017-06-04 05/28/2017 Skyler L [id number] Primary Skyler L StypeDOB: [address] [address] Insurance:MEDICARE [id number] [facility] [address] [facility] [place] PART A BPolicy Number: [facility] [id number]: [id number] Repository [phone] Date:2014-04-02 () 05/28/2017 Secondary Skyler L StypeDOB: Arma Insurance:CIGNAPolicy [id number] [facility] Number: Hospital [id number] Repository Date:[id number]BRZW[place], [place] [address]WW: 05/28/2017 Tertiary NOT GIVENUNK Arma Insurance:SELF PAY [facility] Number: Effective Repository Date:2017-05-03
== END ==
LOC: OLS.AVED 07:05
PROVIDERS: Visit Provider Family Medicine
DX: R53.83 Other fatigue (principal); Z94.0 Kidney transplant status
CPT/HCPCS: 36415; 80048; 85027

== ENCOUNTER → 2018-04-27 04:30 | Outpatient (REF) | payer MEDICARE, OTHER, SELFPAY ==
[2018-04-27 07:34] LABS: Hemoglobin 12.5 g/dl (13.0-16.5); Mean Corp Hgb Conc 31.3 g/gl (32-36); Mean Corpuscular Hgb 25.1 pg (27.0-32.0); Mean Corpuscular Volume 80.3 fL (80-94); Mean Platelet Vol. 10.3 fl (6.2-12.0); Platelet Count 203 K/mm3 (150-450); RBC Distribution Width CV 15.5 % (11.6-14.6); RBC Distribution Width SD 44.9 fl (35.1-43.9); Red Blood Count 4.98 M/mm3 (4.6-6.2); Scan Indicated on CBC? Y/N NO; White Blood Count 4.4 K/mm3 (4.4-11.0)
[2018-04-27 07:45] LABS: Anion Gap 8 (5-15); BUN 20 mg/dL (7-18); BUN/Creat Ratio 13.2 RATIO (10-20); Chloride 110 mmol/L (98-107); Creatinine, Serum 1.52 mg/dL (0.70-1.30); EST Glomerular Filtration Rate 52 mL/min (>60); Est Glom Filt Rate - Afr Amer 63 mL/min (>60); Glucose 75 mg/dL (74-106); Sodium Level 143 mmol/L (136-145)
== END ==
LOC: OLS.AVED 04:30
PROVIDERS: Visit Provider Family Medicine
DX: Z94.0 Kidney transplant status (principal)
CPT/HCPCS: 36415; 80048; 85027

== ENCOUNTER → 2018-05-04 05:00 | Outpatient (REF) | payer MEDICARE, OTHER, SELFPAY ==
[2018-05-04 07:13] LABS: Mean Corpuscular Hgb 24.8 pg (27.0-32.0); Mean Corpuscular Volume 80.2 fL (80-94); Mean Platelet Vol. 10.6 fl (6.2-12.0); Platelet Count 212 K/mm3 (150-450); RBC Distribution Width CV 15.3 % (11.6-14.6); RBC Distribution Width SD 44.7 fl (35.1-43.9); Red Blood Count 5.24 M/mm3 (4.6-6.2); White Blood Count 4.6 K/mm3 (4.4-11.0)
[2018-05-04 07:14] LABS: Scan Indicated on CBC? Y/N NO
[2018-05-04 07:29] LABS: Anion Gap 8 (5-15); BUN 18 mg/dL (7-18); BUN/Creat Ratio 11.6 RATIO (10-20); Calcium,Total 7.5 mg/dL (8.5-10.1); Chloride 110 mmol/L (98-107); Creatinine, Serum 1.55 mg/dL (0.70-1.30); EST Glomerular Filtration Rate 51 mL/min (>60); Est Glom Filt Rate - Afr Amer 61 mL/min (>60); Glucose 80 mg/dL (74-106); Potassium 3.9 mmol/L (3.5-5.1); Sodium Level 141 mmol/L (136-145)
== END ==
LOC: OLS.AVED 05:00
PROVIDERS: Visit Provider Family Medicine
DX: N18.9 Chronic kidney disease, unspecified (principal)
CPT/HCPCS: 36415; 80048; 85027

== ENCOUNTER → 2018-05-11 05:00 | Outpatient (REF) | payer MEDICARE, OTHER, SELFPAY ==
[2018-05-11 09:17] LABS: Hematocrit 40.1 % (40-54); Hemoglobin 12.7 g/dl (13.0-16.5); Mean Corp Hgb Conc 31.7 g/gl (32-36); Mean Corpuscular Hgb 25.1 pg (27.0-32.0); Mean Corpuscular Volume 79.2 fL (80-94); Mean Platelet Vol. 10.5 fl (6.2-12.0); Platelet Count 174 K/mm3 (150-450); RBC Distribution Width CV 15.6 % (11.6-14.6); RBC Distribution Width SD 44.7 fl (35.1-43.9); Red Blood Count 5.06 M/mm3 (4.6-6.2); White Blood Count 3.7 K/mm3 (4.4-11.0)
[2018-05-11 09:19] LABS: Scan Indicated on CBC? Y/N NO
[2018-05-11 09:25] LABS: Albumin, Serum 3.5 g/dL (3.2-5.0); BUN 18 mg/dL (7-18); BUN/Creat Ratio 12.6 RATIO (10-20); Calcium,Total 7.6 mg/dL (8.5-10.1); Chloride 111 mmol/L (98-107); Creatinine, Serum 1.43 mg/dL (0.70-1.30); EST Glomerular Filtration Rate 55 mL/min (>60); Est Glom Filt Rate - Afr Amer 67 mL/min (>60); Glucose 85 mg/dL (74-106); Phosphorus 3.2 mg/dL (2.5-4.9); Sodium Level 143 mmol/L (136-145)
[2018-05-14 20:20] LABS: Tacrolimus (FK506) 7.4 ng/mL (2.0-20.0)
== END ==
LOC: OLS.AVED 05:00
PROVIDERS: Visit Provider Family Medicine
DX: Z94.0 Kidney transplant status (principal)
CPT/HCPCS: 36415; 80069; 80197; 85027

== ENCOUNTER → 2018-05-18 06:20 | Outpatient (REF) | payer MEDICARE, OTHER, SELFPAY ==
[2018-05-18 09:38] LABS: Hematocrit 44.2 % (40-54); Hemoglobin 13.4 g/dl (13.0-16.5); Mean Corp Hgb Conc 30.3 g/gl (32-36); Mean Corpuscular Hgb 24.9 pg (27.0-32.0); Mean Platelet Vol. 11.4 fl (6.2-12.0); Platelet Count 204 K/mm3 (150-450); RBC Distribution Width CV 15.9 % (11.6-14.6); RBC Distribution Width SD 47.1 fl (35.1-43.9); Red Blood Count 5.39 M/mm3 (4.6-6.2); Scan Indicated on CBC? Y/N NO; White Blood Count 4.2 K/mm3 (4.4-11.0)
[2018-05-18 09:47] LABS: ALB/GLOB Ratio 1.3 RATIO (0.9-2.4); AST(SGOT) 24 U/L (15-37); Alanine Aminotransfer ALT/SGPT 26 U/L (16-61); Albumin, Serum 3.8 g/dL (3.2-5.0); Alkaline Phosphatase 50 U/L (45-117); Anion Gap 7 (5-15); BUN 18 mg/dL (7-18); BUN/Creat Ratio 12.2 RATIO (10-20); Calcium,Total 8.5 mg/dL (8.5-10.1); Chloride 110 mmol/L (98-107); Creatinine, Serum 1.47 mg/dL (0.70-1.30); EST Glomerular Filtration Rate 54 mL/min (>60); Est Glom Filt Rate - Afr Amer 65 mL/min (>60); Globulin 2.9 g/dL (2.2-4.2); Glucose 82 mg/dL (74-106); Potassium 4.3 mmol/L (3.5-5.1); Protein, Total 6.7 g/dL (6.4-8.2); Sodium Level 142 mmol/L (136-145)
--- OUTSIDE RECORDS SUMMARY | 2018-07-23 00:51 | XMS RPT_ITS ---
:1965 Author Organization OHIP Support Name Relationship Address Phone COW Unavailable [address] + [place] [address] Patsolic, Suzanna Unavailable [address] + [place] [address] Stypjolie Cierra Unavailable [address] + [place] [address] COW Unavailable [address] + [place] [address] Patsolic, Suzanna Unavailable [address] + [place] [address] Stype, Cierra Unavailable [address] + [place] [address] COW Unavailable [address] + [place] [address] Patsolic, Suzanna Unavailable [address] + [place] [address] Stype, Cierra Unavailable [address] + [place] [address] COW Unavailable [address] + [place] [address] Patsolic, Suzanna Unavailable [address] + [place] [address] Stype, Cierra Unavailable [address] + [place] [address] COW Unavailable [address] + [place] [address] Patsolic, Suzanna Unavailable [address] + [place] [address] Stypjolie Cierra Unavailable [address] + [place] [address] COW Unavailable [address] + [place] [address] Patsolic, Suzanna Unavailable [address] + [place] [address] Stype, Cierra Unavailable [address] + [place] [address] PATSOLICCOLIN Unavailable Unavailable + STYPEYOLI Unavailable Unavailable + COW Unavailable [address] + [place] [address] Patsolic, Suzanna Unavailable [address] + [place] [address] Stype, Cierra Unavailable [address] + [place] [address] COW Unavailable [address] + [place] [address] Patsolic, Suzanna Unavailable [address] + [place] [address] Stype, Cierra Unavailable [address] + [place] [address] COW Unavailable [address] + [place] [address] Patsolic, Suzanna Unavailable [address] + [place] [address] Stype, Cierra Unavailable [address] + [place] [address] COW Unavailable [address] + [place] [address] Patsolic, Suzanna Unavailable [address] + [place] [address] Stype, Cierra Unavailable [address] + [place] [address] COW Unavailable [address] + [place] [address] Patsolic, Suzanna Unavailable [address] + [place] [address] Stype, Cierra Unavailable [address] + [place] [address] COW Unavailable [address] + [place] [address] Patsolic, Suzanna Unavailable [address] + [place] [address] Stype, Cierra Unavailable [address] + [place] [address] PATSOLICMARINACOLIN Unavailable Unavailable + STYPEYOLI Unavailable Unavailable + COW Unavailable [address] + [place] [address] Patsolic, Suzanna Unavailable [address] + [place] [address] Stype, Cierra Unavailable [address] + [place] [address] COW Unavailable [address] + [place] [address] Patsolic, Suzanna Unavailable [address] + [place] [address] Stype, Cierra Unavailable [address] + [place] [address] COW Unavailable [address] + [place] [address] Patsolic, Suzanna Unavailable [address] + [place] [address] Stype, Cierra Unavailable [address] + [place] [address] COW Unavailable [address] + [place] [address] Patsolic, Suzanna Unavailable [address] + [place] [address] Stype, Cierra Unavailable [address] + [place] [address] COW Unavailable [address] + [place] [address] Patsolic, Suzanna Unavailable [address] + [place] [address] Stype, Cierra Unavailable [address] + [place] [address] + [place] [address] Patsolic, Suzanna Unavailable [address] + [place] [address] Stype, Cierra Unavailable [address] + [place] [address] + [place] [address] Patsolic, Suzanna Unavailable [address] + [place] [address] Stype, Cierra Unavailable [address] + [place] [address] + [place] [address] PATSOSUZANNA TAPIA (MEDICAL POA) Unavailable [address] + [place] [address] STYPE, CIERRA Unavailable [address] + [place] [address] + [place] [address] PATSOSUZANNA TAPIA (MEDICAL POA) Unavailable [address] + [place] [address] STYPE, CIERRA Unavailable [address] + [place] [address] + [place] [address] PATSOSUZANNA TAPIA (MEDICAL POA) Unavailable [address] + [place] [address] STYPE, CIERAR Unavailable [address] + [place] [address] + [place] [address] PATSOLICSUZANNA (MEDICAL POA) Unavailable [address] + [place] [address] STYPE, CIERRA Unavailable [address] + [place] [address] + [place] [address] PATSOLICSUZANNA (MEDICAL POA) Unavailable [address] + [place] [address] STYPE, CIERRA Unavailable [address] + [place] [address] + [place] [address] PATSUZANNA LEE (MEDICAL POA) Unavailable [address] + [place] [address] STYPE, CIERRA Unavailable [address] + [place] [address] + [place] [address] PATSUZANNA LEE (MEDICAL POA) Unavailable [address] + [place] [address] STYPE, CIERRA Unavailable [address] + [place] [address] + [place] [address] PATSUZANNA LEE (MEDICAL POA) Unavailable [address] + [place] [address] STYPE, CIERRA Unavailable [address] + [place] [address] + [place] [address] Patsolic Suzanna Unavailable [address] + [place] [address] Stype, Cierra Unavailable [address] + [place] [address] + [place] [address] PATSOSUZANNA TAPIA (MEDICAL POA) Unavailable [address] + [place] [address] STYPE, CIERRA Unavailable [address] + [place] [address] COW Un[address] + [place] [address] Patsolic, Suzanna Unavailable [address] + [place] [address] Stype, Cierra Unavailable [address] + [place] [address] + [place] [address] PATSOSUZANNA TAPIA (MEDICAL POA) Unavailable [address] + [place] [address] STYPE CIERRA Unavailable [address] + [place] [address] + [place] [address] PATSOSUZANNA TAPIA (MEDICAL POA) Unavailable [address] + [place] [address] STYPE, CIERRA Unavailable [address] + [place] [address] + [place] [address] PATSOSUZANNA TAPIA (MEDICAL POA) Unavailable [address] + [place] [address] STYPE, CIERRA Unavailable [address] + [place] [address] PATSOMARINA TAPIACOLIN Unavailable Unavailable + STYPEMARIANOYOLI Unavailable Unavailable + COW Unavailable [address] + [place] [address] PATSOSUZANNA TAPIA (MEDICAL POA) Unavailable [address] + [place] [address] STYPE CIERRA Unavailable [address] + [place] [address] + [place] [address] PATSOLICSUZANNA (MEDICAL POA) Unavailable [address] + [place] [address] STYPE, CIERRA Unavailable [address] + [place] [address] + [place] [address] PATSOLICSUZANNA (MEDICAL POA) Unavailable [address] + [place] [address] STYPE, CIERRA Unavailable [address] + [place] [address] + [place] [address] PATSOLICSUZANNA (MEDICAL POA) Unavailable [address] + [place] [address] STYPE, CIERRA Unavailable [address] + [place] [address] + [place] [address] PATSOLICSUZANNA (MEDICAL POA) Unavailable [address] + [place] [address] STYPE, CIERRA Unavailable [address] [phone] [place] [address] + [place] [address] PATSOLICSUZANNA (MEDICAL POA) Unavailable [address] + [place] [address] STYPE, CIERRA Unavailable [address] [phone] [place] [address] + [place] [address] PATSOLICSUZANNA (MEDICAL POA) Unavailable [address] + [place] [address] STYPE, CIERRA Unavailable [address] [phone] [place] [address] + [place] [address] PATSOLICSUZANNA (MEDICAL POA) Unavailable [address] + [place] [address] STYPE, CIERRA Unavailable [address] [phone] [place] [address] + [place] [address] PATSOLICSUZANNA (MEDICAL POA) Unavailable [address] + [place] [address] STYPE, CIERRA Unavailable [address] + [place] [address] + [place] [address] SUZANNA RUVALCABA (MEDICAL POA) Unavailable [address] + [place] [address] STYPE, CIERRA Unavailable [address] [phone] [place] [address] + [place] [address] STYPE, CIERRA Unavailable [address] [phone] [place] [address] + [place] [address] STYPE, CIERRA Unavailable [address] [phone] [place] [address] + [place] [address] SUZANNA RUVALCABA (MEDICAL POA) Unavailable [address] + [place] [address] STYPE, CIERRA Unavailable [address] + [place] [address] + [place] [address] STYPE, CIERRA Unavailable [address] [phone] [place] [address] + [place] [address] STYPE, CIERRA Unavailable [address] [phone] [place] [address] + [place] [address] STYPE, CIERRA Unavailable [address] [phone] [place] [address] + [place] [address] STYPE, CIERRA Unavailable [address] [phone] [place] [address] + [place] [address] STYPE, CIERRA Unavailable [address] [phone] [place] [address] + [place] [address] STYPE, CIERRA Unavailable [address] [phone] [place] [address] + [place] [address] SUZANNA RUVALCABA (MEDICAL POA) Unavailable [address] + [place] [address] STYPE, CIERRA Unavailable [address] + [place] [address] + [place] [address] STYPE, CIERRA Unavailable [address] [phone] [place] [address] + [place] [address] STYPE, CIERRA Unavailable [address] [phone] [place] [address] + [place] [address] STYPE, CIERRA Unavailable [address] [phone] [place] [address] + [place] [address] STYPE, CIERRA Unavailable [address] [phone] [place] [address] + [place] [address] STYPE, CIERRA Unavailable [address] [phone] [place] [address] + [place] [address] STYPE, CIERRA Unavailable [address] [phone] [place] [address] + [place] [address] CIERRA PINZON Unavailable [address] [phone] [place] [address] COLIN RUVALCABA Unavailable Unavailable + YOLI PINZON Unavailable Unavailable + COW Unavailable [address] + [place] [address] CIERRA PINZON Unavailable [address] [phone] [place] [address] Care Team Providers Name Role Phone Jeanne, Dr. Ruiz Admitting Unavailable Padiyajovani, Dr. Ruiz Attending Unavailable Jeanne, Dr. Ruiz Referring Unavailable FREE, TEXT ENTRY Primary Care Unavailable Huml, Dr. Valery Nolan Admitting Unavailable Huml, Dr. Valery Nolan Attending Unavailable Padiyajovani, Dr. Ruiz Referring Unavailable FREE, TEXT ENTRY Primary Care Unavailable Racheliyajovani, Dr. Ruiz Attending Unavailable Huml, Dr. Valery Nolan Referring Unavailable FREE, TEXT ENTRY Primary Care Unavailable Padiyajovani, Dr. Ruiz Attending Unavailable FREE, TEXT ENTRY Primary Care Unavailable Bella, Mike Attending Unavailable Bella, Mike Attending Unavailable Bella, Mike Attending Unavailable JUSTIN WREN Attending Unavailable JUSTIN WREN Referring Unavailable Bella, Mike Primary Care Unavailable Nakul Crenshaw Consulting Unavailable Bella, Mike Attending Unavailable Bella, Mike Attending Unavailable Bella, Mike Attending Unavailable Bella, Mike Primary Care Unavailable JUSTIN WREN Attending Unavailable JUSTIN WREN Referring Unavailable JUSTIN WREN Attending Unavailable JUSTIN WREN Referring Unavailable Bella, Mike Primary Care Unavailable Litzy Kern Attending Unavailable Bella, Mike Primary Care Unavailable Bella, Mike Primary Care Unavailable White, Jesica Admitting Unavailable Cheng Santos Consulting Unavailable Sementi, Keli Attending Unavailable Darin Williamson Consulting Unavailable White, Jesica Admitting Unavailable White, Jesica Attending Unavailable Bella, Mike Primary Care Unavailable White, Jesica Consulting Unavailable White, Jesica Admitting Unavailable Sementi, Keli Attending Unavailable Bella, Mike Primary Care Unavailable Cheng Santos Consulting Unavailable Damion, Jose Consulting Unavailable Sementi, Keli Consulting Unavailable White, Jesica Admitting Unavailable Sementi, Keli Attending Unavailable Bella, Mike Primary Care Unavailable Danielle, Cheng Consulting Unavailable Damion, Jayaprakash Consulting Unavailable Sementi, Keli Consulting Unavailable White, Jesica Admitting Unavailable [facility] Primary Care Unavailable Danielle, Cheng Consulting Unavailable JASS Arauz Attending Unavailable Damion, Jayaprakash Consulting Unavailable Sementi, Keli Consulting Unavailable White, Jesica Admitting Unavailable Sementi, Keli Attending Unavailable [facility] Mike Primary Care Unavailable Danielle, Cheng Consulting Unavailable Damion, Jayaprakash Consulting Unavailable Sementi, Keli Consulting Unavailable [facility] Primary Care Unavailable Jopperi, Ambrosio Admitting Unavailable Paintsil, Harrod Attending Unavailable Jopperi, Ambrosio Admitting Unavailable Jopperi, Ambrosio Attending Unavailable [facility] Primary Care Unavailable Jopperi, Ambrosio Consulting Unavailable Sementi, Keli Attending Unavailable White, Jesica Admitting Unavailable [facility] Primary Care Unavailable Danielle, Cheng Consulting Unavailable Bakhous, Aziz Consulting Unavailable Sementi, Keli Consulting Unavailable [facility] Primary Care Unavailable Jose Armando Mosqueda Attending Unavailable JUSTIN WREN Attending Unavailable JUSTIN WREN Referring Unavailable [facility] Primary Care Unavailable JeannieNakul hurstRafael Consulting Unavailable Bella, Mike Attending Unavailable [facility] Primary Care Unavailable [facility] Primary Care Unavailable Tereletsky, Luis Armando Admitting Unavailable Jopperi, Ambrosio Attending Unavailable Tereletsky, Luis Armando Admitting Unavailable Tereletsky, Luis Armando Attending Unavailable [facility] Primary Care Unavailable Tereletsrivas, Luis Armando Consulting Unavailable JUSTIN WREN Attending Unavailable JUSTIN WREN Referring Unavailable [facility] Mike Primary Care Unavailable Jeannie, Rafael Consulting Unavailable Ha Lyle Attending Unavailable Ha Lyle Referring Unavailable [facility] Primary Care Unavailable [facility] Primary Care Unavailable White, Jesica Admitting Unavailable Gena Thrasherasem Attending Unavailable Fredi Padilla D.O. Consulting Unavailable White, Jesica Attending Unavailable [facility] Mike Primary Care Unavailable White, Jesica Admitting Unavailable Fredi Padilla D.O. Attending Unavailable [facility] Mike Primary Care Unavailable Izabel Meza.O. Consulting Unavailable Cloviselfmirela, Ghasem Consulting Unavailable Ha Lyle Attending Unavailable Ha [...] Consulting Unavailable Bella, Mike Primary Care Unavailable Amborsio Munguia Attending Unavailable Fredi Padilla D.O. Attending Unavailable Bella, Mike Referring Unavailable Fredi Padilla D.O. Attending Unavailable Fredi Padilla D.O. Referring Unavailable Bella, Mike Primary Care [...] STATUS SOURCE 05/25/2018 Unknown N18.9 - Chronic Bella Mike Active [place] kidney disease, Community unspecified / Hospital N18.9(ICD-10) Repository 05/13/2018 Unknown R53.83 - Other Bella Mike Active [facility] fatigue / Community R53.83(ICD-10) Hospital Repository 05/13/2018 Unknown Z48.22 - Encounter Jena Mike Active [facility] for aftercare Community following kidney Hospital transplant / Repository Z48.22(ICD-10) 04/14/2018 Final diagnosis Kidney transplant Dr. Trina Rao [place] (discharge) status / [facility] Z94.0(ICD-10) Repository 04/14/2018 Final diagnosis Disorder involving Dr. Trina Rao [place] (discharge) the immune [facility] mechanism, Repository unspecified / D89.9(ICD-10) 05/02/2018 Unknown D89.9 - Disorder JUSTIN WREN Active [facility] involving the Community immune mechanism, Hospital unspecified / Repository D89.9(ICD-10) 05/18/2018 Unknown I82.409 - Acute Bella Mike Active [facility] embolism and Community thrombosis of Hospital unspecified deep Repository veins of unspecified lower extremity / I82.409(ICD-10) 05/18/2018 Unknown Z94.0 - Kidney Bella, Mike Active [place] transplant status Community / Z94.0(ICD-10) Hospital Repository 03/15/2018 Final diagnosis Constipation, Dr. 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 Community R06.02(ICD-10) Hospital Repository 12/15/2017 Unknown I26.99 - Other Fredi Padilla, Active [place] pulmonary embolism D.O. Community without acute cor Hospital pulmonale / Repository I26.99(ICD-10) 11/23/2017 Final diagnosis Essential Huml, Dr. Valery Mena [place] (discharge) (primary) [facility] hypertension / Repository I10(ICD-10) 11/18/2017 Unknown J18.9 - Pneumonia, Ha Lyle Active [facility] unspecified E Community organism / Hospital J18.9(ICD-10) Repository 10/29/2017 Unknown R31.9 - Hematuria, JUSTIN WREN Active [facility] unspecified / Community R31.9(ICD-10) Hospital Repository 10/20/2017 Unknown R05 - Cough / Mike Bella Active [facility] R05(ICD-10) Community Hospital Repository 11/08/2017 Unknown J40 - Bronchitis, [place], Active [facility] not specified as [facility] Community acute or chronic / Hospital J40(ICD-10) Repository 10/20/2017 Unknown R07.9 - Chest Jopperi, Ambrosio Active [place] pain, unspecified Community / R07.9(ICD-10) Hospital Repository 01/18/2018 Unknown Z51.89 - Encounter Mike Bella Active [place] for other Community specified Hospital aftercare / Repository Z51.89(ICD-10) 10/25/2017 Unknown N39.0 - Urinary Sementi, Active [facility] tract infection, Keli Community site not specified Hospital / N39.0(ICD-10) Repository 07/06/2017 Final diagnosis Urinary tract Dr. Trina Rao [place] (discharge) infection, site [facility] not specified / Repository N39.0(ICD-10) PROCEDURES PROCEDURES No Procedure Records FoundRESULTS RESULTS CBC-COMPLETE BLOOD CNT Collected: 05/18/2018 Status: F Source: [place] NO DIFF 6:20 AM [facility] [place] CODE TESTS RESULT OUT OF [...] MPV 11.4 Performed By: #### L100.0500 #### [facility] [address] [place], [address] COMPREHENSIVE METABOLIC Collected: 05/18/2018 Status: F Source: [place] PROFIL 6:20 AM [facility] [place] CODE TESTS RESULT OUT OF [...] GAP 7 Performed By: #### L500.4050 #### [facility] [place], [address] CBC-COMPLETE BLOOD CNT Collected: 05/11/2018 Status: F Source: [place] NO DIFF 5:45 AM [facility] [place] TYPE CODE TESTS RESULT OUT OF [...] MPV 10.5 Performed By: #### L100.0500 #### [facility] [address] [place], [place], [id number] RENAL PROFILE Collected: 05/11/2018 Status: F Source: [place] 5:45 AM [facility] [place] Order Comment: 127 TYPE CODE TESTS [...] CO2 22.0 Performed By: #### L500.3600 #### [facility] [address] [place], [place], [address] TACROLIMUS (PROGRAF) Collected: 05/11/2018 Status: F Source: [place] 5:45 AM [facility] [place] TYPE CODE TESTS RESULT OUT OF RANGE REFERENCE UNITS LAB L3380.1100 2.0-20.0 ng/mL Normal TACROLIMUS 7.4 Result Comment: Trough (immediately following transplant) 15.0 Trough (steady state, 2 weeks or more after transplant): 3.0 - 8.0 Detection Limit = 1.0 Performed by LC-MS/MS technology. Performed at: [facility] [address] [id number] [employer] Investigator: Ivelisse Orourke MD, Phone: [phone] Performed By: #### L3380.1000 #### [facility] (refer to report for specific site) refer to report for address and phone number CBC-COMPLETE BLOOD CNT Collected: 05/04/2018 Status: F Source: [place] NO DIFF 5:40 AM [facility] [place] Order Comment: ROOM 127 TYPE CODE [...] MPV 10.6 Performed By: #### L100.0500 #### [facility] [address] [place], [place], [address] BASIC METABOLIC Collected: 05/04/2018 Status: F Source: [place] PROFILE (BMP) 5:40 AM [facility] [place] Order Comment: ROOM 127 TYPE CODE [...] GAP 8 Performed By: #### L500.2500 #### [facility] [address] [place], [place], [address] CBC-COMPLETE BLOOD CNT Collected: 04/27/2018 Status: F Source: [place] NO DIFF 5:13 AM [facility] [place] Order Comment: 127 TYPE CODE TESTS [...] MPV 10.3 Performed By: #### L100.0500 #### [facility] [address] [place], [address] BASIC METABOLIC Collected: 04/27/2018 Status: F Source: [place] PROFILE ([facility]) 5:13 AM [facility] [place] Order Comment: 127 TYPE CODE TESTS [...] GAP 8 Performed By: #### L500.2500 #### [facility] [address] [place], [address] BASIC METABOLIC Collected: 04/20/2018 Status: F Source: [place] PROFILE ([facility]) 7:05 AM [facility] [place] TYPE CODE TESTS RESULT OUT OF [...] GAP 8 Performed By: #### L500.2500 #### [facility] [address] [place] [address], [address] CBC-COMPLETE BLOOD CNT Collected: 04/20/2018 Status: F Source: [place] NO DIFF 7:05 AM [facility] [place] TYPE CODE TESTS RESULT OUT OF [...] MPV 11.1 Performed By: #### L100.0500 #### [facility] [address] [place], [place], [id number] ESTABLISHED VISIT Observed: 04/14/2018 Status: UNK Source: [facility] (NEPHROLOGY) 10:55 AM [facility] REPOSITORY Chief Complaint Post Kidney Transplant Follow Up History of Present Illness REFERRING DOCTOR: Dr. TOMASA HAN [phone] DEMOGRAPHICS: Ethnicity: Non- or Gender: Male PRIMARY [...] Updated By: Gardenia Ortega; 03/15/2018 10:30:05 AM I-Qgbg-Oulfmxt 155-852-130 MG Oral Tablet; TAKE 1 TABLET [...] Hypertension; ADRIAN = N; Verified Transmission to [address]; Last Updated By: Areli Brasher; 06/25/2017 4:52:58 PM Mycophenolate Mofetil 250 MG Oral Capsule; TAKE 2 CAPSULE Twice daily Requested for: 31May2017; Last Rx:[id number] Ordered Rx By: Isac Thao; Dispense: 90 Days ; #:360 Capsule; Refill: 3;For: Immunosuppression, Kidney replaced by transplant; ADRIAN = N; Verified Transmission to [address] Tacrolimus 1 MG Oral Capsule; TAKE [...] 03/15/2018 10:17:01 AM Vitals Vital Signs Recorded: [id number] 10:06AM Zrorzuigeit25.2 F, Oral Heart Pfzz013 Oohsmuzy868 Qdzbemqga86 Height6 ft 1 in Quaehj756 lb 3.2 oz BMI Reogluqqme09.3 BSA Calculated2.08 O2 Gkdeuhmdci55, RA Physical Exam Constitutional: No acute distress, [...] F Source: [place] NO DIFF 8:05 AM [facility] [place] TYPE CODE TESTS RESULT OUT OF [...] MPV 10.9 Performed By: #### L100.0500 #### [facility] [address] [place], [address] BASIC METABOLIC Collected: 04/13/2018 Status: F Source: [place] PROFILE (BMP) 8:05 AM [facility] [place] CODE TESTS RESULT OUT OF [...] 9 Performed By: #### L500.2500, L501.1800 #### [facility] [address] [place], [address] ALBUMIN, SERUM Collected: 04/13/2018 Status: F Source: [place] 8:05 AM [facility] [place] TYPE CODE TESTS RESULT OUT OF RANGE REFERENCE UNITS LAB L501.1800 3.2-5.0 g/dL Normal ALB 3.4 Performed By: #### L500.2500, L501.1800 #### [facility] [address] [place], [address] TACROLIMUS (PROGRAF) Collected: 04/13/2018 Status: F Source: [place] 8:05 AM [facility] [place] TYPE CODE TESTS RESULT OUT OF RANGE REFERENCE UNITS LAB L3380.1100 2.0-20.0 ng/mL Normal TACROLIMUS 5.2 Result Comment: Trough (immediately following transplant) 15.0 Trough (steady state, 2 weeks or more after transplant): 3.0 - 8.0 Detection Limit = 1.0 Performed by LC-MS/MS technology. Performed at: - [facility] [id number] Computer Forensics Investigator: Ivelisse Orourke MD, Phone: [phone] Performed By: #### L3380.1000 #### [facility] (refer to report for specific site) refer to report for address and phone number CBC-COMPLETE BLOOD CNT Collected: 04/06/2018 Status: F Source: [place] NO DIFF 7:00 AM [facility] [place] Order Comment: ROOM 127 TYPE CODE [...] MPV 11.3 Performed By: #### L100.0500 #### [facility] [address] [place], [address] BASIC METABOLIC Collected: 04/06/2018 Status: F Source: [place] PROFILE (BMP) 7:00 AM [facility] [place] Order Comment: ROOM 127 TYPE CODE [...] GAP 7 Performed By: #### L500.2500 #### [facility] [address] [place], [address] BASIC METABOLIC Collected: 03/30/2018 Status: F Source: [place] PROFILE ([facility]) 6:45 AM [facility] [place] Order Comment: 127 TYPE CODE TESTS [...] GAP 8 Performed By: #### L500.2500 #### [facility] [address] [facility] [place], [place], [address] CBC-COMPLETE BLOOD CNT Collected: 03/30/2018 Status: F Source: [place] NO DIFF 6:45 AM [facility] [place] Order Comment: 127 TYPE CODE TESTS [...] MPV 11.0 Performed By: #### L100.0500 #### [facility] [address] [facility] [place], [place], [address] BASIC METABOLIC Collected: 03/23/2018 Status: F Source: [place] PROFILE (BMP) 5:55 AM [facility] [place] Order Comment: 127 TYPE CODE TESTS [...] GAP 8 Performed By: #### L500.2500 #### [facility] [address] [place], [place], [address] CBC-COMPLETE BLOOD CNT Collected: 03/23/2018 Status: F Source: [place] NO DIFF 5:55 AM [facility] [place] Order Comment: 127 TYPE CODE TESTS [...] MPV 11.6 Performed By: #### L100.0500 #### [facility] [address] [place], [place], [address] CBC-COMPLETE BLOOD CNT Collected: 03/16/2018 Status: F Source: [place] NO DIFF 5:55 AM [facility] [place] Order Comment: ROOM 127 TYPE CODE [...] MPV 11.4 Performed By: #### L100.0500 #### [facility] [address] [place], [place], [address] RENAL PROFILE Collected: 03/16/2018 Status: F Source: [place] 5:55 AM [facility] [place] Order Comment: ROOM 127 TYPE CODE [...] CO2 24.0 Performed By: #### L500.3600 #### [facility] [address] [place], [place], [address] TACROLIMUS (PROGRAF) Collected: 03/16/2018 Status: F Source: [place] 5:55 AM [facility] [place] Order Comment: ROOM 127 TYPE CODE TESTS RESULT OUT OF RANGE REFERENCE UNITS LAB L3380.1100 2.0-20.0 ng/mL Normal TACROLIMUS 7.1 Result Comment: Trough (immediately following transplant) 15.0 Trough (steady state, 2 weeks or more after transplant): 3.0 - 8.0 Detection Limit = 1.0 Performed by LC-MS/MS technology. Performed at: [facility] [id number] Computer Forensics Investigator: Ivelisse Orourke MD, Phone: [phone] Performed By: #### L3380.1000 #### [facility] (refer to report for specific site) refer to report for address and phone number ESTABLISHED VISIT Observed: 03/15/2018 Status: UNK Source: [place] (NEPHROLOGY) 11:51 AM [facility] Chief Complaint [...] bedtime; Therapy: 13Aug2016 to (Evaluate:20Jun2018) Requested for: 04Mwq4807; Last Rx:76Vbd4571 Ordered Rx By: Sara Rao; Dispense: 30 Days ; #:30 TAB; Refill: 11;For: Hypertension; ADRIAN = N; Verified Transmission to [address]; Last Updated By: Areli Brasher; 06/25/2017 4:52:58 PM Mycophenolate Mofetil 250 MG Oral Capsule; TAKE 2 CAPSULE Twice daily Requested for: 31May2017; Last Rx:07May2017 Ordered Rx By: Isac Thao; Dispense: 90 Days ; #:360 Capsule; Refill: 3;For: Immunosuppression, Kidney replaced by transplant; ADRIAN = N; Verified Transmission to [address] Tacrolimus 1 MG Oral Capsule; TAKE [...] Oral Tablet; Take 1 tablet daily; Therapy: 56Jnf8923 to (Evaluate:62Gyh3056) Recorded Dispense: 67 Days ; #:67 Tablet; Refill: 0; ADRIAN = N; Record; Last Updated By: Jahaira Luis; 03/15/2018 10:21:32 AM Vitals Vital Signs Recorded: 15Mar2018 10:07AM Uxrbxegncrj52 F, Oral Heart Lrdd124 Waxdvxtw604 Kqgvjznxo17 Height6 ft 1 in Rcfuii899 lb 14.4 oz BMI Hfrfljxngl69.26 BSA Calculated2.08 O2 Tvbcnrmwqq96, RA Physical Exam Constitutional: Abnormal uses a [...] No livedo reticularis. Lymphatic: No lymphadenopathy. Results/Data Jhfqavocjs53Jul6696 12:00AMPadiyar, Sara Test NameResultFlagReference FK506 Tacrolimus, Blood9.4 ng/mL2.0 - 15.0 NOTE: Result was obtained using a chemiluminescent microparticle immunoassay (CMIA) on the [employer] i system. Optimal therapeutic ranges for immuno- suppressant drugs depend upon an individual ashu ent's current clinical state, type of organ transplant, time post-transplant, co- administration of other immunosuppressants, and other clinical factors. The results of this test should be correlated wit h additional clinical and laboratory data before changes in treatment regimens are made. Complete Blood Pogqg41Ane0266 08:18AMPadiyar, Sara Test NameResultFlagReference White Blood Cell Count3.9 x10E9/LL4.4 - 11.3 Red Blood Cell Count5.04 x10E12/LSee Below Reference Range: 4.50 - 5.90 Nucleated Erythrocyte Count0.0 /100 WBC0.0-0.0 Nkdexuofqt16.7 g/dLSee Below Reference Range: 13.5 - 17.5 HCT46.0 %See Below Reference Range: 41.0 - 52.0 MCV91 fL80 - 100 MCHC32.0 g/dLSee Below Reference Range: 32.0 - 36.0 Platelet Tjmhx994 x10E9/L150 - 450 RDW-CV13.6 %See Below Reference Range: 11.5 - 14.5 Renal Function Quwxm25Can6210 08:18AMPadiyar, Sara Test NameResultFlagReference Glucose, Serum68 mg/dLL74 - 99 Sodium, Ufjby041 mmol/L136 - 145 POTASSIUM4.0 mmol/L3.5 - 5.3 Chloride, Xsinq479 mmol/LH98 - 107 Bicarbonate, Serum23 mmol/L21 - 32 Anion Gap, Serum12 mmol/L10 - 20 Blood Urea Nitrogen, Serum21 mg/dL6 - 23 CREATININE1.56 mg/dLHSee Below Reference Range: 0.50 - 1.30 GFR Non Ivkkrnkw56 mL/min/1.73m2A>60 GFR Gswlzqas65 mL/min/1.73m2A>60 CALCULATIONS OF ESTIMATED GFR ARE PERFORMED [...] PLAN: - I will have a social human services assistants talk to sister -I will call to [...] F Source: [place] NO DIFF 6:15 AM [facility] [place] Order Comment: RM 127 TYPE CODE [...] MPV 10.8 Performed By: #### L100.0500 #### [facility] [place], [address] BASIC METABOLIC Collected: 03/09/2018 Status: F Source: [place] PROFILE (BMP) 6:15 AM [facility] [place] Order Comment: RM 127 TYPE CODE [...] GAP 10 Performed By: #### L500.2500 #### [facility] [address] [place], [address] CBC-COMPLETE BLOOD CNT Collected: 03/02/2018 Status: F Source: [place] NO DIFF 6:20 AM [facility] [place] Order Comment: ROOM 127 TYPE CODE [...] MPV 10.5 Performed By: #### L100.0500 #### [facility] [address] [place], [place], [address] BASIC METABOLIC Collected: 03/02/2018 Status: F Source: [place] PROFILE (BMP) 6:20 AM [facility] [place] Order Comment: ROOM 127 TYPE CODE [...] GAP 7 Performed By: #### L500.2500 #### [facility] [address] [facility] [place], [address] EMERGENCY DEPARTMENT Observed: 02/24/2018 Status: F Source: [place] SUMMARY 3:35 AM [facility] [place] [facility] Medical Records Department [address] [facility] [place] [address] Emergency Department Summary 02/24/18 0131 MR#: [id number] Acct: [id number] Name: SKYLER PINZON Rep #: [id number] : 1965 52 From: Vania Sullivan MD PCP: Mike Bella MD Status: DEP ER - ER Visit Summary Date of Service: 02/24/18 Chief Complaint: Decreased urine output History of Present Illness: The patient is a 52 M sent in from ECF for decreased urine output. Patient gets straight [...] RBCs. Emergency Department Course and Treatment: 16 [place] was placed by nursing staff. One [...] 2. Cystitis This note was generated with Glassdoor dictation software. It may contain incorrect words, [...] problems, contact your Primary Care Provider. Call [facility] ([phone]) or report to the closest Emergency Room. Call 911 if necessary. 02/24/18 033 <Electronically signed by Vania Sullivan MD> Date Vania Sullivan MD Cosigner Signature (If Indicated): Date CC: Mike Bella MD DISCHARGE INSTRUCTION Observed: 02/24/2018 Status: F Source: [place] 1:32 AM [facility] [place] [facility] Medical Records Department [address] [place] [address] Discharge Instruction 02/24/18 0131 MR#: [id number] Acct: [id number] Name: SKYLER PINZON Rep #: [id number] : 1965 52 From: Vania Sullivan MD [...] your Primary Care Provider. Call [facility] ([phone]) or report to the closest Emergency Room. Call 911 if necessary. 02/24/18 0132 <Electronically signed by Vania Sullivan MD> Date Vania Sullivan MD Cosigner Signature (If Indicated): Date CC: Mike Bella MD URINALYSIS, COMPLETE Collected: 02/24/2018 Status: F Source: [place] 12:50 AM [facility] [place] Order Comment: Order Date: 02/24/18 Has [...] URINE SEEN Performed By: #### L400.0001 #### [facility] [address] [place], [address] Observed: 02/24/2018 Status: F Source: [place] CULTURE, URINE 12:50 AM [facility] [place] Order Date: 02/24/18 Urine Culture ORGANISM 1: Staphylococcus epidermidis Humphreys Count >100,000 Staphylococcus epidermidis: REACTION Benzylpenicillin NF >=0.5 R Cefoxitin *NF + Inducable Clindamycin [place] - Gentamicin $ <=0.5 S Levofloxacin $ 0.5 S Linezolid $$$$ 1 S Nitrofurantoin $ <=16 S Oxacillin NF >=4 R Rifampin $$ <=0.5 S Tetracycline NF 2 S Vancomycin $ 1 S (NF) indicates non-formulary drug at [facility]. Approval by Infectious Disease Specialist required before non-formulary drugs may be ordered and/or dispensed. * CLSI guidelines does not recommend testing of cephalosporins. This interpretation is deduced from Beta-lactam/penicillin results. Performed By: #### M100.0650 #### [facility] [address] [facility] [place], [place], [address] CBC W/DIFF, AUTOMATED Collected: 02/24/2018 Status: F Source: [place] 12:19 AM [facility] [place] TYPE CODE TESTS RESULT OUT OF [...] Lymph 1.58 Performed By: #### L100.0100 #### [facility] [address] [place], [address] BASIC METABOLIC Collected: 02/24/2018 Status: F Source: [place] PROFILE (BMP) 12:19 AM [facility] [place] TYPE CODE TESTS RESULT OUT OF [...] GAP 8 Performed By: #### L500.2500 #### [facility] [address] [place], [address] CBC-COMPLETE BLOOD CNT Collected: 02/23/2018 Status: F Source: [place] NO DIFF 7:45 AM [facility] [place] TYPE CODE TESTS RESULT OUT OF [...] MPV 11.3 Performed By: #### L100.0500 #### [facility] [address] [place], [place], [address] BASIC METABOLIC Collected: 02/23/2018 Status: F Source: [place] PROFILE (BMP) 7:45 AM [facility] [place] TYPE CODE TESTS RESULT OUT OF [...] GAP 7 Performed By: #### L500.2500 #### [facility] [address] [place], [address] CBC-COMPLETE BLOOD CNT Collected: 02/16/2018 Status: F Source: [place] NO DIFF 5:35 AM [facility] [place] Order Comment: 127 TYPE CODE TESTS [...] MPV 11.3 Performed By: #### L100.0500 #### [facility] [address] [place], [place], [address] BASIC METABOLIC Collected: 02/16/2018 Status: F Source: [place] PROFILE (BMP) 5:35 AM [facility] [place] Order Comment: 127 TYPE CODE TESTS [...] GAP 8 Performed By: #### L500.2500 #### [facility] [address] [place], [place], [address] BASIC METABOLIC Collected: 02/09/2018 Status: F Source: [place] PROFILE (BMP) 6:05 AM [facility] [place] Order Comment: ROOM 120 TYPE CODE [...] GAP 8 Performed By: #### L500.2500 #### [facility] [address] [facility] [address] [place], [place], [address] CBC-COMPLETE BLOOD CNT Collected: 02/09/2018 Status: F Source: [place] NO DIFF 6:05 AM [facility] [place] Order Comment: ROOM 120 TYPE CODE [...] MPV 10.3 Performed By: #### L100.0500 #### [facility] [address] [place], [address] Observed: 02/09/2018 Status: F Source: [place] CULTURE, URINE 12:00 AM [facility] [place] Urine Culture Culture exhibits no growth. Performed By: #### M100.0650 #### [facility] [address] [place], [address] DISCHARGE SUMMARY Observed: 02/04/2018 Status: F Source: [place] 6:21 PM [facility] [place] [facility] Medical Records Department [address] [place] [address] Discharge Summary 01/25/18 1729 MR#: [id number] Acct: [id number] Name: SKYLER PINZON Rep #: [id number] : 1965 52 From: Mikey Rinaldi MD PCP: Mike Bella MD Status: DIS IN Y Location: [place] [address] ADDENDUM by Mikey Rinaldi MD on 10/05/18 at 1821 Code Visit [facility]charge to [facility] [place] 02/01/2018. 02/04/18 1821 <Electronically signed by Mikey [...] Reviewed 12/22/17 @ 11:28 by JASS Hull) Urinary tract infection (Acute) Abdominal pain (Acute) [...] kidney in his right pelvis. Discharge to [facility]. Discharge Diet: No Restrictions Discharge [...] F Source: [place] NO DIFF 5:45 AM [facility] [place] Order Comment: 127 TYPE CODE TESTS [...] MPV 10.5 Performed By: #### L100.0500 #### [facility] [address] [place], [address] BASIC METABOLIC Collected: 02/02/2018 Status: F Source: [place] PROFILE (BMP) 5:45 AM [facility] [place] Order Comment: 127 TYPE CODE TESTS [...] GAP 7 Performed By: #### L500.2500 #### [facility] [place], [address] CBC W/DIFF, AUTOMATED Collected: 01/31/2018 Status: F Source: [place] 5:25 AM [facility] [place] TYPE CODE TESTS RESULT OUT OF [...] Lymph 0.79 Performed By: #### L100.0100 #### [facility] [address] [place], [address] BASIC METABOLIC Collected: 01/31/2018 Status: F Source: [place] PROFILE (BMP) 5:25 AM [facility] [place] TYPE CODE TESTS RESULT OUT OF [...] GAP 8 Performed By: #### L500.2500 #### [facility] [address] [place], [address] DISCHARGE INSTRUCTION Observed: 01/28/2018 Status: F Source: [place] 2:10 PM [facility] [place] [facility] Medical Records Department [place] [address] Instructions for Home/Discharge Instructions 01/25/18 1727 MR#: [id number] Acct: [id number] Name: SKYLER PINZON Rep #: [id number] : 1965 52 From: Mikey Rinaldi MD PCP: Mike Bella MD Status: ADM IN ADDENDUM by Mikey Rinaldi MD on 01/28/18 at [address] [place] 01/31/2018 skilled for straight cathing. 01/28/18 1410 Date Mikey Rinaldi MD cc: Nakul Crenshaw MD; Mike Bella MD; Cheng Santos MD * Signed ADDENDUM by Mikey Rinaldi MD on 01/28/18 at [address] [place] 01/30/2018 skilled for straight cathing. 01/28/18 1407 [...] 2 weeks. Proposed Discharge Date: 01/29/18 01/25/18 4214 <Electronically signed by Mikey Rinaldi MD> Date Mikey Rinaldi MD CC: Nakul Crenshaw MD; Mike Bella MD; Cheng Santos MD TRANSFER TO EXTENDED Observed: 01/28/2018 Status: F Source: [place] CARE 2:09 PM [facility] [place] [facility] Medical Records Department [address] [place] [address] Transfer to Extended Care MR#: [id number] Acct: [id number] Name: SKYLER PINZON Rep #: [id number] : 1965 52 From: Mikey Rinaldi MD PCP: Mike Bella MD Status: ADM IN SKYLER PINZON [id number] (Patient) (Health Ins. Claim No.) (Day of Discharge to Facility) Certification of patient admission REQUIRED AT TIME OF ADMISSION. I CERTIFY THAT POST-HOSPITAL ECF SERVICES ARE REQUIRED TO BE GIVEN ON AN IN-PATIENT BASIS BECAUSE OF THE ABOVE NAMED PATIENT'S NEED FOR DETENTION CARE ON A CONTINUING BASIS FOR THE CONDITION(S) FOR WHICH HE/SHE WAS RECEIVING IN-PATIENT HOSPITAL SERVICES PRIOR TO HIS/HER TRANSFER TO [facility]. 01/28/18 1409 <Electronically signed by Mikey Rinaldi [...] Signed CONSULTATION Observed: 01/27/2018 Status: F Source: [place] 10:28 AM [facility] [place] [facility] Medical Records Department [address] [place] [address] Consultation 01/27/18 1026 MR#: [id number] Acct: [id number] Name: SKYELR PINZON Rep #: [id number] : 1965 52 From: Cheng Santos MD PCP: Mike Bella MD Status: ADM IN Location: [place] [address] Problem List (1) Urinary tract infection Status: [...] [] Active and Suspected Problems (Last Reviewed 08/22/18 @ 11:28 by Siria Harp NP-C) Urinary [...] F Source: [place] AND/OR ERECT 11:09 AM [facility] [place] [facility] Imaging Services [address] [place] [address] Abd Inc Decub and/or Erect MR#: [id number] Acct: [id number] Name: SKYLER PINZON Rep #: [id number] : 1965 M 52 From: Manolo Julian MD PCP: Mike Bella MD Status: ADM IN Study: Abd Inc Decub and/or Erect Date of Exam: 01/26/18 Exam# [id number] Ordering Dr: Mikey Rinaldi MD STUDY: X-RAY [...] colon with dilated small bowel. Electronically Signed: Maonlo Julian MD at 12:56 EDT Tel [phone], Service support , CC: Mike Bella MD; Mikey Rinaldi MD Pre School Manager: Signed BASIC METABOLIC Collected: 01/24/2018 Status: F Source: [place] PROFILE (BMP) 5:30 AM [facility] [place] TYPE CODE TESTS RESULT OUT OF [...] 7 Performed By: #### L500.2500, L501.9940 #### [facility] [address] [place], [address] PSA,TOTAL- DIAGNOSTIC Collected: 01/24/2018 Status: F Source: [place] 5:30 AM [facility] [place] TYPE CODE TESTS RESULT OUT OF RANGE REFERENCE UNITS LAB L501.9940 0.0-4.0 ng/mL PSA, Normal DIAGNOSTIC 1.97 Result Comment: This test was performed using the TPSA assay method for the Imp[employer] chemistry system. Values obtained with different assay methods cannot be used interchangably. When changing PSA assays in the course of monitoring a patient, additional sequential testing should be carried out to confirm baseline values. Performed By: #### L500.2500, L501.9940 #### [facility] [address] [place], [address] URINALYSIS, COMPLETE Collected: 01/23/2018 Status: F Source: [place] 6:55 PM [facility] [place] Order Comment: Microscopic field is filled. [...] URINE SEEN Performed By: #### L400.0001 #### [facility] [address] [facility] [place], [address] Observed: 01/23/2018 Status: F Source: [place] CULTURE, URINE 6:55 PM [facility] [place] Urine Culture ORGANISM 1: Enterococcus faecium Humphreys Count >100,000 Enterococcus faecium: REACTION Ampicillin $ >=32 R Benzylpenicillin NF >=64 R Ciprofloxacin $ >=8 R Gentamicin SYN-S S Levofloxacin $ >=8 R Linezolid $$$$ 2 S Nitrofurantoin $ 64 I Streptomycin $ SYN-S S Tetracycline NF >=16 R Vancomycin $ <=0.5 S (NF) indicates non-formulary drug at [facility]. Approval by Infectious Disease Specialist required before non-formulary drugs may be ordered and/or dispensed. * CLSI guidelines does not recommend testing of cephalosporins. This interpretation is deduced from Beta-lactam/penicillin results. Performed By: #### M100.0650 #### [facility] [address] [facility] [place], [address] ABDOMEN SINGLE VIEW Observed: 01/22/2018 Status: F Source: [place] 12:30 PM [facility] [place] [facility] Imaging Services [address] [place] [address] Abdomen Single View MR#: [id number] Acct: [id number] Name: SKYLER PINZON Rep #: [id number] : 1965 M 52 From: Sean Rojas MD PCP: Mike Bella MD Status: ADM IN Study: Abdomen Single View Date of Exam: 01/22/18 Exam# [id number] Ordering Dr: Mikey Rinaldi MD STUDY: X-RAY [...] CC: Mike Bella MD; Mikey Rinaldi MD Pre School Manager: Signed RENAL PROFILE Collected: 01/21/2018 Status: F Source: [place] 5:20 AM [facility] [place] TYPE CODE TESTS RESULT OUT OF [...] CO2 26.0 Performed By: #### L500.3600 #### [facility] [address] [facility] [place], [place], [address] CBC W/DIFF, AUTOMATED Collected: 01/21/2018 Status: F Source: [place] 5:20 AM [facility] [place] TYPE CODE TESTS RESULT OUT OF [...] Lymph 0.99 Performed By: #### L100.0100 #### [facility] [address] [place], [address] TACROLIMUS (PROGRAF) Collected: 01/21/2018 Status: F Source: [place] 5:20 AM [facility] [place] TYPE CODE TESTS RESULT OUT OF RANGE REFERENCE UNITS LAB L3380.1100 2.0-20.0 ng/mL Normal TACROLIMUS 6.4 Result Comment: Trough (immediately following transplant) 15.0 Trough (steady state, 2 weeks or more after transplant): 3.0 - 8.0 Detection Limit = 1.0 Performed by LC-MS/MS technology. Performed at: - [facility] [address] [id number] Computer Forensics Investigator: Renan Soares MD, Phone: [phone] Performed By: #### L3380.1000 #### [facility] (refer to report for specific site) refer to report for address and phone number CONSULTATION Observed: 01/20/2018 Status: F Source: [place] 12:37 PM [facility] [place] [facility] Medical Records Department [address] [place] [address] Consultation 01/20/18 1234 MR#: [id number] Acct: [id number] Name: SKYLER PINZON Rep #: [id number] : 1965 52 From: Nakul Crenshaw MD PCP: Mike Bella MD Status: ADM IN Location: [place] [id number] Problem List (1) Recurrent sepsis due to [...] Reviewed 12/22/17 @ 11:28 by Siria Harp TACTICAL/MOBILE WATCH OFFICER-C) Right-sided chest pain (Acute) R07.9 Nonproductive cough [...] Reviewed 12/22/17 @ 11:28 by Siria Harp, SUE-C) Sepsis (Acute) PRISCILLA (acute kidney injury) (Acute) [...] follow-up in my office as planned. 01/20/18 3078 <Electronically signed by Nakul Crenshaw MD> Date Nakul Crenshaw MD Cosigner Signature (if applicable): Date CC: Nakul Crenshaw MD; Mkie Bella MD Signed URINALYSIS, ROUTINE Collected: 01/18/2018 Status: F Source: [place] (DIPSTICK) 12:00 PM [place] [facility] Order Comment: Diagnosis: cloudy, foul odor, [...] 25 ESTERASE Performed By: #### L400.2010 #### [facility] [address] [place], [place], [address] Observed: 01/18/2018 Status: F Source: [place] CULTURE, URINE 12:00 PM [facility] Order Date: 01/18/18 Urine Culture Culture exhibits no growth. Performed By: #### M100.0650 #### [facility] [address] [place], [place], [address] HISTORY AND PHYSICAL Observed: 01/17/2018 Status: F Source: [place] EXAM 8:21 AM [facility] Medical Records Department [address] [place] [address] History and Physical 01/16/182014 MR#: [id number] Acct: [id number] Name: SKYLER PINZON Rep #: [id number] : 1965 52 From: Mikey Rinaldi MD PCP: Mike Bella MD Status: ADM IN Location: [place] [address] Problem List (1) Urinary tract infection Status: [...] hydronephrosis right pelvis transplant kidney, marked hydronephrosis kaibab kidneys, small bowel obstruction, moderate stool in [...] 01/16/2018 Status: F Source: [place] 8:35 PM [facility] Imaging Services [address] [place] [address] Abdomen Single View MR#: [id number] Acct: [id number] Name: SKYLER PINZON Rep #: [id number] : 1965 M 52 From: Andrzej Liu MD PCP: Mike Bella MD Status: ADM IN Study: Abdomen Single View Date of Exam: 01/16/18 Exam# [id number] Ordering Dr: Mikey Rinladi MD STUDY: X-RAY - ABDOMEN/PELVIS REASON FOR [...] CC: Mike Bella MD; Mikey Rinaldi MD Pre School Manager: Signed DISCHARGE SUMMARY Observed: 01/16/2018 Status: F Source: [place] 11:38 AM [facility] Medical Records Department [address] [place] [address] Discharge Summary 01/16/18 0749 MR#: [id number] Acct: [id number] Name: SKYLER PINZON Rep #: [id number] : 1965 52 From: Jesica Russo PCP: Mike Bella MD Status: ADM IN Y Location: MS3 RE145-2 Discharge Date and Diagnosis - Problem List [...] 12/22/17 @ 11:28 by Siria Harp NP-Lester) Pulmonary embolism (Chronic) Pulmonary infiltrate present on [...] on xarelto regimen who presented to the [facility] ED on 01/11/18 with history of ongoing low-grade temperatures, fatigue, weakness, more quiet than usual per sister report in addition to onset of suprapubic discomfort on day of ED presentation. Hx non-compliant with self catherization regimen. Ga placed in the ED. Admitted to [place], UA upon ED evaluation remarkable, UCx however without [...] as marked hydroureter and hydronephrosis of the kaibab ureters and kidneys increased compared to prior CT, small bowel ileus with no evidence of bowel obstruction with moderate stool in the colon per recommendation of Dr. Cuevas, current tombstone polisher Urologist. Amenable to d/c ga catheter and [...] as marked hydroureter and hydronephrosis of the kaibab ureters and kidneys increased compared to prior [...] 01/11/18 Tacrolimus Anhydrous [Prograf] 2 mg PO 00,209901/11/18 Loperamide [Imodium] 2 mg PO Q2H PRN [...] within 2-4 weeks w/ your team. Disposition: Long-Term facility Minutes spent on discharge:: 35 Patient Condition:: Fair Medical Necessity - Tobacco Use Smoking Status: Never smoker Tobacco Use: Non-smoker Meaningful Use Info Meaningful Use Diagnoses (Choose all that apply): None applicable Code Visit Inpatient E AND M: 44045 Disch Hosp 01/16/18 1138 <Electronically signed by Jesica Russo > Date Jesica Russo Cosigner Signature (if applicable): Date CC: Jesica Russo; Mike Bella MD Signed TRANSFER TO EXTENDED Observed: 01/16/2018 Status: F Source: [facility] 7:49 AM [facility] Medical Records Department [address] [place] [address] Transfer to Extended Care MR#: [id number] Acct: [id number] Name: SKYLER PINZON Rep #: [id number] : 1965 52 From: Jesica Russo PCP: Mike Bella MD Status: ADM IN SKYLER PINZON (Patient) (Health Ins. Claim No.) (Day of Discharge to Facility) Certification of patient admission REQUIRED AT TIME OF ADMISSION. I CERTIFY THAT POST-HOSPITAL ECF SERVICES ARE REQUIRED TO BE GIVEN ON AN IN-PATIENT BASIS BECAUSE OF THE ABOVE NAMED PATIENT'S NEED FOR DETENTION CARE ON A CONTINUING BASIS FOR THE CONDITION(S) FOR WHICH HE/SHE WAS RECEIVING IN-PATIENT HOSPITAL SERVICES PRIOR TO HIS/HER TRANSFER TO THE [facility]. 01/16/18 0749 <Electronically signed by Jesica Russo > Date Jesica Vazquez Rafaela - Diet 01/11/18 19:16 Diet: Cardiac/Low Cholesterol [...] RENAL PROFILE Collected: 01/15/2018 Status: F Source: [place] 6:55 AM [facility] TYPE CODE TESTS RESULT OUT OF [...] CO2 22.0 Performed By: #### L500.3600 #### [facility] [address] [place], [address] CBC W/DIFF, AUTOMATED Collected: 01/15/2018 Status: F Source: [place] 6:55 AM [facility] TYPE CODE TESTS RESULT OUT OF [...] Lymph 0.84 Performed By: #### L100.0100 #### [facility] [address] [place], [address] Observed: 01/14/2018 Status: F Source: [place] CDIFF (MOLECULAR) 12:05 PM [facility] Is the patient receiving laxatives? N New/unexplained onset of 3 or more stools in past 24 hrs? Y Cdiff-Molecular C. Diff DNA Negative- No toxigenic C. Diff DNA Detected NAAT METHOD Testing was performed using nucleic acid amplification Performed By: #### M100.6796 #### [facility] [address] [facility] [place], [address] CBC W/DIFF, AUTOMATED Collected: 01/14/2018 Status: F Source: [place] 6:10 AM [facility] TYPE CODE TESTS RESULT OUT OF [...] Lymph 0.71 Performed By: #### L100.0100 #### [facility] [address] [facility] [place], [place], [address] BASIC METABOLIC Collected: 01/14/2018 Status: F Source: [place] PROFILE (BMP) 6:10 AM [facility] TYPE CODE TESTS RESULT OUT OF [...] GAP 9 Performed By: #### L500.2500 #### [facility] [address] [facility] [address] [place], [place], [address] CBC W/DIFF, AUTOMATED Collected: 01/13/2018 Status: F Source: [place] 7:50 AM [facility] TYPE CODE TESTS RESULT OUT OF [...] LYMPHOPENIA NOTED. Performed By: #### L100.0100 #### [facility] [address] [place], [address] BASIC METABOLIC Collected: 01/13/2018 Status: F Source: [place] PROFILE (BMP) 7:50 AM [facility] TYPE CODE TESTS RESULT OUT OF [...] GAP 10 Performed By: #### L500.2500 #### [facility] [address] [place], [place], [address] Observed: 01/12/2018 Status: F Source: [place] CULTURE, URINE 11:35 AM [facility] Has pt arrived? Y Urine Culture Culture exhibits no growth. Performed By: #### M100.0650 #### [facility] [address] [place], [place], [address] Observed: 01/12/2018 Status: F Source: [place] CULTURE, BLOOD (WB) 11:14 AM [facility] Has pt arrived? Y BC No growth in 5 days. Performed By: #### M200.1000 #### [facility] [address] [place], [place], [address] Observed: 01/12/2018 Status: F Source: [place] CULTURE, BLOOD (WB) 11:10 AM [facility] Has pt arrived? Y BC No growth in 5 days. Performed By: #### M200.1000 #### [facility] [address], [address] CBC W/DIFF, AUTOMATED Collected: 01/12/2018 Status: F Source: [place] 5:58 AM [facility] TYPE CODE TESTS RESULT OUT OF [...] Lymph 0.64 Performed By: #### L100.0100 #### [facility] [address] [place], [address] BASIC METABOLIC Collected: 01/12/2018 Status: F Source: [place] PROFILE (BMP) 5:58 AM [facility] TYPE CODE TESTS RESULT OUT OF [...] GAP 9 Performed By: #### L500.2500 #### [facility] [address] [place], [address] HISTORY AND PHYSICAL Observed: 01/11/2018 Status: F Source: [place] EXAM 7:46 PM [facility] Medical Records Department [address] [place] [address] History and Physical 01/11/18 1901 MR#: [id number] Acct: [id number] Name: SKYLER PINZON George Rep #: [id number] : 1965 52 From: Jesica Russo PCP: Mike Bella MD Status: ADM IN Y Location: MS3 HN185-9 Problem List (1) Acute UTI Status: Acute [...] on xarelto regimen who presents to the [facility] ED on 01/11/18 with history of [...] as marked hydroureter and hydronephrosis of the kaibab ureters and kidneys increased compared to prior [...] 12/22/17 @ 11:28 by Siria Harp NP-C) Pulmonary embolism (Chronic) Pulmonary infiltrate present on [...] Reviewed 12/22/17 @ 11:28 by Siria Harp, SUE-C) Sepsis (Acute) PRISCILLA (acute kidney injury) (Acute) [...] on xarelto regimen who presents to the [facility] ED on 01/11/18 with history of ongoing low-grade temperatures, fatigue, weakness, more quiet than usual per sister report in addition to onset of suprapubic discomfort on day of ED presentation. (1) Acute Sepsis secondary to Acute Complicated Urinary Tract Infection w/ Neurogenic Bladder and Self-Catheterization: Non-compliant with self catherization regimen. Ga placed in the ED. Will admit to [facility] UA upon ED evaluation remarkable, pending UCx, admission [...] noted. Code Visit Inpatient E AND M: 31642 Init Hosp L3 01/11/181945 <Electronically signed by Jesica Rsuso > Date Jesica Russo Cosigner Signature: Date (if applicable) CC: Jesica Russo; Mike Bella MD Signed EMERGENCY DEPARTMENT Observed: 01/11/2018 Status: F Source: [place] SUMMARY 7:11 PM [facility] Medical Records Department [address] [place] [address] Emergency Department Summary 01/11/18 1554 MR#: [id number] Acct: [id number] Name: SKYLER PINZON Rep #: [id number] : 1965 52 From: Ga Hollingsworth MD [...] UTI, ileus, This note was generated with Nubisioation software. It may contain incorrect words, spelling, [...] your Primary Care Provider. Call [facility] ([phone]) or report to the closest Emergency Room. Call 911 if necessary. 01/11/18 191 <Electronically signed by Ga Hollingsworth MD> Date aG Hollingsworth MD Cosigner Signature (If Indicated): Date CC: Miek Bella MD LACTIC ACID Collected: 01/11/2018 Status: F Source: [place] 7:10 PM [facility] Order Comment: Yes/No query for Sepsis Lactate Rule Y TYPE CODE TESTS RESULT OUT OF RANGE REFERENCE UNITS LAB L503.6005 0.4-2.0 mmol/L Normal LACTIC ACID 0.7 Performed By: #### L503.6005 #### [facility] [address] [place], [address] ABDOMEN/PELVIS WITHOUT Observed: 01/11/2018 Status: F Source: [place] CONT 3:55 PM [facility] REPOSITORY [facility] Imaging Services [address] [place] [address] Abdomen/Pelvis without Cont MR#: [id number] Acct: [id number] Name: SKYLER PINZON Rep #: [id number] : 1965 M 52 From: Vania Miramontes MD PCP: Mike Bella MD Status: REG ER Study: Abdomen/Pelvis without Cont Date of Exam: 01/11/18 Exam# [id number] Ordering Dr: Ga Hollingsworth MD STUDY: CT [...] unremarkable. The adrenal glands are unremarkable. The kaibab kidneys are markedly atrophic with cortical thinning and numerous cysts. There is marked dilatation of the collecting systems in both kaibab kidneys, and there is marked dilatation of both kaibab ureters. There is a transplant kidney in [...] is marked hydroureter and hydronephrosis of the kaibab ureters and kidneys, increased compared to the prior CT. There is small bowel ileus. There is no evidence of bowel obstruction. There is moderate stool in the colon. There is no ascites, free air or significant lymphadenopathy. Electronically Signed: Vania Miramontes MD at 16:50 EDT Tel Direct: [phone], Service support , CC: Ga Hollingsworth MD; Mike Bella MD Pre School Manager: Signed BASIC METABOLIC Collected: 01/11/2018 Status: F Source: [place] PROFILE (BMP) 3:50 PM [facility] TYPE CODE TESTS RESULT OUT OF [...] GAP 12 Performed By: #### L500.2500 #### [facility] [address] [place], [address] CBC W/DIFF, AUTOMATED Collected: 01/11/2018 Status: F Source: [place] 3:50 PM [facility] TYPE CODE TESTS RESULT OUT OF [...] Lymph 0.64 Performed By: #### L100.0100 #### [facility] [address] [facility] [address] [place], [place], [address] LIPASE Collected: 01/11/2018 Status: F Source: [place] 3:50 PM [facility] TYPE CODE TESTS RESULT OUT OF RANGE REFERENCE UNITS LAB L501.2450 73-393 U/L Normal LIPASE 230 Performed By: #### L501.2450 #### [facility] [address] [place], [address] LIVER PROFILE Collected: 01/11/2018 Status: F Source: [place] 3:50 PM [facility] TYPE CODE TESTS RESULT OUT OF [...] BILI 0.12 Performed By: #### L500.3400 #### [facility] [address] [place], [address] MAGNESIUM Collected: 01/11/2018 Status: F Source: [place] 3:50 PM [facility] TYPE CODE TESTS RESULT OUT OF RANGE REFERENCE UNITS LAB L501.5200 1.6-2.6 mg/dL Normal MG 2.0 Performed By: #### L501.5200 #### [facility] [address] [place], [address] URINALYSIS, COMPLETE Collected: 01/11/2018 Status: F Source: [place] 2:43 PM [facility] Order Comment: Microscopic field is filled. [...] URINE SEEN Performed By: #### L400.0001 #### [facility] [address] [place], [place], [address] PULMONARY VISIT REPORT Observed: 12/22/2017 Status: F Source: [place] 12:01 PM [facility] [address] [place], [place] [address] OFFICE VISIT Date of Service: 12/22/17 MR#: [id number] Acct: [id number] Name: SKYLER PINZON Rep #: [id number] : 1965 Provider: Siria Harp Age/Sex: 52/M [place] [facility] Status: Signed Assessment AND Plan 1. Vocal [...] 2 W FU Chief Complaint: chest pain Capacity Management Specialist Required: No Is patient in pain?: Yes [...] F Source: [place] NO DIFF 7:46 AM [facility] TYPE CODE TESTS RESULT OUT OF [...] MPV 9.8 Performed By: #### L100.0500 #### [facility] [address] [place], [address] RENAL PROFILE Collected: 12/20/2017 Status: F Source: [place] 7:46 AM [facility] TYPE CODE TESTS RESULT OUT OF [...] CO2 21.0 Performed By: #### L500.3600 #### [facility] [address] [place], [place], [address] TACROLIMUS (PROGRAF) Collected: 12/20/2017 Status: F Source: [place] 7:46 AM [facility] TYPE CODE TESTS RESULT OUT OF RANGE REFERENCE UNITS LAB L3380.1100 2.0-20.0 ng/mL Normal TACROLIMUS 4.8 Result Comment: Trough (immediately following transplant) 15.0 Trough (steady state, 2 weeks or more after transplant): 3.0 - 8.0 Detection Limit = 1.0 Performed by LC-MS/MS technology. Performed at: - [facility] [id number] Computer Forensics Investigator: Renan Soares MD, Phone: [phone] Performed By: #### L3380.1000 #### [facility] (refer to report for specific site) refer to report for address and phone number CHEST WITHOUT Observed: 12/11/2017 Status: F Source: [place] CONTRAST 6:56 AM [facility] Imaging Services [address] [place] [address] Chest without Contrast MR#: [id number] Acct: [id number] Name: SKYLER PINZON Rep #: [id number] : 1965 M 52 From: Claudia Chatman PCP: Mike Bella MD Status: REG CLI Study: Chest without Contrast Date of Exam: 12/11/17 Exam# [id number] Ordering Dr: Fredi Padilla DO STUDY: CT [...] CC: Fredi Padilla D.O.; Mike Bella MD Pre School Manager: Signed PULMONARY VISIT REPORT Observed: 12/10/2017 Status: F Source: [place] 7:54 AM [facility] of [address] [place] [address] OFFICE VISIT Date of Service: 12/09/17 MR#: [id number] Acct: [id number] Name: SKYLER PINZON Rep #: [id number] : 1965 Provider: Fredi Padilla D.O. Age/Sex: 52/M [place] [facility] Status: Signed Assessment AND Plan 1. Shortness [...] x 3 days Follow Up 2 Weeks ([facility]) HPI HPI Comments Details: The patient [...] EMERGENCY DEPARTMENT Observed: 12/07/2017 Status: F Source: [place] SUMMARY 3:48 PM [facility] Medical Records Department [address] [place] [address] Emergency Department Summary 12/07/17 1542 MR#: [id number] Acct: [id number] Name: SKYLER PINZON Rep #: [id number] : 1965 52 From: Ambrosio Munguia DO [...] tract infection This note was generated with Glassdoor dictation software. It may contain incorrect words, [...] problems, contact your Primary Care Provider. Call [facility] ([phone]) or report to the closest Emergency Room. Call 911 if necessary. 12/07/17 1548 <Electronically signed by Ambrosio Munguia DO> Date Ambrosio Munguia DO Cosigner Signature (If Indicated): Date CC: Mike Bella MD Observed: 12/07/2017 Status: F Source: [place] CULTURE, URINE 1:49 PM [facility] Order Date: 12/07/17 Has pt arrived? 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 Approval by Infectious Disease Specialist required before non-formulary drugs may be ordered and/or dispensed. Performed By: #### M100.0650 #### [facility] [place], [address] URINALYSIS, COMPLETE Collected: 12/07/2017 Status: F Source: [place] 1:45 PM [facility] Order Comment: Order Date: 12/07/17 Has [...] URINE SEEN Performed By: #### L400.0001 #### [facility] [place], [address] Observed: 12/07/2017 Status: F Source: [place] CULTURE, BLOOD (WB) 1:35 PM [facility] No growth in 5 days. Performed By: #### M200.1000 #### [facility] [place], [address] Observed: 12/07/2017 Status: F Source: [place] CULTURE, BLOOD (WB) 1:35 PM [facility] No growth in 5 days. Performed By: #### M200.1000 #### [facility] [place], [place], [address] CBC W/DIFF, AUTOMATED Collected: 12/07/2017 Status: F Source: [place] 1:25 PM [facility] TYPE CODE TESTS RESULT OUT OF [...] Lymph 0.96 Performed By: #### L100.0100 #### [facility] [address] [place], [place], [address] COMPREHENSIVE METABOLIC Collected: 12/07/2017 Status: F Source: [facility] 1:25 PM [facility] TYPE CODE TESTS RESULT OUT OF [...] GAP 7 Performed By: #### L500.4050 #### [facility] [address] [place] [address], [address] LACTIC ACID Collected: 12/07/2017 Status: F Source: [place] 1:25 PM [facility] Order Comment: Yes/No query for Sepsis Lactate Rule Y TYPE CODE TESTS RESULT OUT OF RANGE REFERENCE UNITS LAB L503.6005 0.4-2.0 mmol/L Normal LACTIC ACID 1.0 Performed By: #### L503.6005 #### [facility] [address] [place], [place], [address] CHEST PA AND LATERAL Observed: 12/07/2017 Status: F Source: [place] 1:10 PM [facility] Imaging Services [address] [place] [address] Chest PA and Lateral MR#: [id number] Acct: [id number] Name: SKYLER PINZON Rep #: [id number] : 1965 M 52 From: López Wong MD PCP: Mike Bella MD Status: REG ER Study: Chest PA and Lateral Date of Exam: 12/07/17 Exam# [id number] Ordering Dr: Ambrosio Munguia DO STUDY: X-RAY [...] CC: Ambrosio Munguia DO; Mike Bella MD Pre School Manager: Signed ESTABLISHED VISIT Observed: 11/23/2017 Status: UNK Source: [place] (NEPHROLOGY) 4:49 PM [facility] REPOSITORY Chief Complaint [...] pt, has had outpatient CT scan (? [facility] CHAUDHARY). + hoarseness Has had multiple rounds of [...] by mouth at bedtime; Therapy: 13Aug2016 to (Evaluate:37Zwe0492) Requested for: 36Giw6420; Last Rx:[id number] Ordered Rx By: Sara Rao; Dispense: 30 Days ; #:30 TAB; Refill: 11;For: Hypertension; ADRIAN = N; Verified Transmission to [facility] [address] [place] [address]; Last Updated By: Areli rBasher; 06/25/2017 4:52:58 PM Mycophenolate Mofetil 250 MG Oral Capsule; TAKE 2 CAPSULE Twice daily Requested for: 31May2017; Last Rx:[id number] Ordered Rx By: Isac Thao; Dispense: 90 Days ; #:360 Capsule; Refill: 3;For: Immunosuppression, Kidney replaced by transplant; ADRIAN = N; Verified Transmission to [facility] [address] [place] [address] Tacrolimus 1 MG Oral Capsule; TAKE 1 CAPSULE BY MOUTH TWICE DAILY; Therapy: 29Oct2016 to (Last Rx:29Mar2017) Requested for: 29Mar2017; Status: ACTIVE - Transmit to Pharmacy - Awaiting Verification Ordered Rx By: Sara Rao; Dispense: 0 Days ; #:60 Capsule; Refill: 5;For: Immunosuppression, Kidney replaced by transplant; ADRIAN = N; Sent To: [facility][id number] Sulfamethoxazole-Trimethoprim 400-80 MG Oral Tablet; TAKE 1 TABLET DAILY Recorded Dispense: 30 Days ; #:30 Tablet; Refill: 11;For: Kidney replaced by transplant, Recurrent UTI (urinary tract infection); ADRIAN = N; Record; Last Updated By: Stephanie Torres; 07/06/2017 9:10:37 AM Vitals Vital Signs Recorded: 27Nfn2466 10:32AM Iigsbdubyvv35.9 F, Oral Heart Mvzu771 Jrbafxty861 Rtlijhzbb60 Height6 ft 1 in Gtgtfi843 lb 3.2 oz BMI Ofavqxeboa39.91 BSA Calculated2.06 O2 Iaijedzvjb30, RA Physical Exam Awake, alert, no distress [...] bedtime; Therapy: 13Aug2016 to (Evaluate:20Jun2018) Requested for: 14Qog9741; Last Rx:[id number] Ordered Mycophenolate Mofetil 250 MG Oral Capsule; [...] F Source: [place] NO DIFF 7:58 AM [facility] TYPE CODE TESTS RESULT OUT OF [...] MPV 10.0 Performed By: #### L100.0500 #### [facility] [address] [facility] [address] [place], [place], [address] RENAL PROFILE Collected: 10/21/2017 Status: F Source: [place] 7:58 AM [facility] TYPE CODE TESTS RESULT OUT OF [...] CO2 25.0 Performed By: #### L500.3600 #### [facility] [address] [place], [place], [address] TACROLIMUS (PROGRAF) Collected: 10/21/2017 Status: F Source: [place] 7:58 AM [facility] TYPE CODE TESTS RESULT OUT OF RANGE REFERENCE UNITS LAB L3380.1100 2.0-20.0 ng/mL Normal TACROLIMUS 6.4 Result Comment: Trough (immediately following transplant) 15.0 Trough (steady state, 2 weeks or more after transplant): 3.0 - 8.0 Detection Limit = 1.0 Performed by LC-MS/MS technology. Performed at: - [facility] [id number] Computer Forensics Investigator: Renan Soares MD, Phone: [phone] Performed By: #### L3380.1000 #### [facility] (refer to report for specific site) refer to report for address and phone number CHEST PA AND LATERAL Observed: 10/20/2017 Status: F Source: [place] 11:14 AM [facility] [facility] [address] [place] [address] Chest PA and Lateral MR#: [id number] Acct: [id number] Name: SKYLER PINZON Rep #: [id number] : 1965 M 52 From: Renato Lawson DO PCP: Mike Bella MD Status: REG CLI Study: Chest PA and Lateral Date of Exam: 10/20/17 Exam# [id number] Ordering Dr: Mike Bella MD STUDY: X-RAY [...] Renato Lawson DO at 18:13 EDT Tel [phone], Service support , CC: Mike Bella MD Pre School Manager: Signed 12 LEAD ELECTROCARDIOGRAM Observed: 10/18/2017 Status: F Source: [place] 8:37 AM [facility] [place] [facility] Cardiovascular Services [address] [place] [address] 12 Lead EKG 09/29/17 0006 MR#: [id number] Acct: [id number] Name: SKYLER PINZON Rep #: [id number] : 1965 52 From: Dylan Reid MD [...] Normal ECG Confirmed by DYLAN REID ([id number]), editorial project manager IRAM CONKLIN ([id number]) on 10/11/2017 5:50:29 PM Referred By: SHAWANDA Confirmed By:DYLAN REID 10/11/17 1750 Date Dylan Reid MD CC: Liam Pelayo MD; Mike Bella MD Signed EMERGENCY DEPARTMENT Observed: 09/29/2017 Status: F Source: [place] SUMMARY 2:03 AM [facility] Medical Records Department [address] [place] [address] Emergency Department Summary 09/29/17 020 MR#: [id number] Acct: [id number] Name: SKYLER PINZON Rep #: [id number] : 1965 52 From: Liam Pelayo MD [...] Chronic cough This note was generated with Glassdoor dictation software. It may contain incorrect words, [...] your Primary Care Provider. Call [facility] ([phone]) or report to the closest Emergency Room. Call 911 if necessary. 09/29/17 0203 <Electronically signed by Liam Pelayo MD> Date Liam Pelayo MD Cosigner Signature (If Indicated): Date CC: Mike Bella MD DISCHARGE INSTRUCTION Observed: 09/29/2017 Status: F Source: [place] 2:03 AM [facility] REPOSITORY [facility] Medical Records Department [address] [place] [address] Discharge Instruction 09/29/17202 MR#: [id number] Acct: [id number] Name: SKYLER PINZON Rep #: [id number] : 1965 52 From: Liam Pelayo MD [...] your Primary Care Provider. Call [facility] ([phone]) or report to the closest Emergency Room. Call 911 if necessary. 09/29/17202 <Electronically signed by Liam Pelayo MD> Date Liam Pelayo MD Cosigner Signature (If Indicated): Date CC: Mike Bella MD CBC W/DIFF, AUTOMATED Collected: 09/29/2017 Status: F Source: [place] 12:10 AM [facility] [place] TYPE CODE TESTS RESULT OUT OF [...] Lymph 1.00 Performed By: #### L100.0100 #### [facility]. [place], [place], [id number] BASIC METABOLIC Collected: 09/29/2017 Status: F Source: [place] PROFILE (BMP) 12:10 AM [facility] [place] TYPE CODE TESTS RESULT OUT OF [...] 8 Performed By: #### L500.2500, L501.4010 #### [facility] [address] [facility] [place]. [place], [place], [address] TROPONIN-I Collected: 09/29/2017 Status: F Source: [place] 12:10 AM [facility] [place] TYPE CODE TESTS RESULT OUT OF RANGE REFERENCE UNITS LAB L501.4010 <0.045 ng/mL Normal < 0.015 TROPONIN-I Result Comment: TROPONIN-I EXPECTED VALUES <0.045 Negative 0.045 - 0.590 Consistent with Cardiac Damage > OR = 0.600 Critical Value Not every elevated troponin is indicative of W[place]. These values should be used with clinical judgement in examining the patient's clinical picture for diagnosis. To establish a diagnosis of WV versus myocardial injury, there must be a demonstrated rise and/or fall in the troponin values, in addition to ischemic symptoms, EKG changes, new regional wall motion abnormality, and/or angiographical evidence. PLEASE NOTE: REFERENCE RANGES EDITED 17 Performed By: #### L500.2500, L501.4010 #### [facility] [address] [place], [place], [address] CHEST PA AND LATERAL Observed: 09/28/2017 Status: F Source: [place] 11:53 PM [facility] [place] [facility] Imaging Services [address] [place] [address] Chest PA and Lateral MR#: [id number] Acct: [id number] Name: SKYLER PINZON Rep #: [id number] : 1965 M 52 From: Renan Marin MD PCP: Mike Bella MD Status: REG ER Study: Chest PA and Lateral Date of Exam: 09/29/17 Exam# [id number] Ordering Dr: Liam Pelayo MD STUDY: X-RAY [...] CC: Liam Pelayo MD; Mike Bella MD Pre School Manager: Signed CHEST PA AND LATERAL Observed: 09/23/2017 Status: F Source: [place] 3:51 PM [facility] [place] [facility] Imaging Services [address] [place], [place] [address] Chest PA and Lateral MR#: [id number] Acct: [id number] Name: SKYLER PINZON Rep #: [id number] : 1965 M 52 From: Hans Wong MD PCP: Mike Bella MD Status: REG CLI Study: Chest PA and Lateral Date of Exam: 09/23/17 Exam# [id number] Ordering Dr: Mike Bella MD STUDY: X-RAY [...] Service support , CC: Mike Bella MD Pre School Manager: Signed CBC-COMPLETE BLOOD CNT Collected: 09/20/2017 Status: F Source: [place] NO DIFF 8:01 AM [facility] [place] TYPE CODE TESTS RESULT OUT OF [...] MPV 10.6 Performed By: #### L100.0500 #### [facility] [address] [place], [place], [address] RENAL PROFILE Collected: 09/20/2017 Status: F Source: [place] 8:01 AM [facility] [place] TYPE CODE TESTS RESULT OUT OF [...] CO2 25.0 Performed By: #### L500.3600 #### [facility] [address] [place], [place], [address] TACROLIMUS (PROGRAF) Collected: 09/20/2017 Status: F Source: [place] 8:01 [facility] [place] [place] REPOSITORY TYPE CODE TESTS RESULT OUT OF RANGE REFERENCE UNITS LAB L3380.1100 2.0-20.0 ng/mL Normal TACROLIMUS 9.3 Result Comment: Trough (immediately following transplant) 15.0 Trough (steady state, 2 weeks or more after transplant): 3.0 - 8.0 Detection Limit = 1.0 Performed by LC-MS/MS technology. Performed at: [facility] [id number] Computer Forensics Investigator: Renan Soares MD, Phone: [phone] Performed By: #### L3380.1000 #### [facility] (refer to report for specific site) refer to report for address and phone number 12 LEAD ELECTROCARDIOGRAM Observed: 09/14/2017 Status: F Source: [place] 1:32 PM [facility] [place] [facility] Cardiovascular Services [address] [place] [address] 12 Lead EKG 09/10/17 2308 MR#: [id number] Acct: [id number] Name: SKYLER PINZON Rep #: [id number] : 1965 52 From: Rolf Mon MD Attending Dr: Teresa Thrasher Status: DIS IN Ordering Dr: Vania Sullivan MD Date: 09/10/17 Location: [facility] [place] Sex: M C Admitted: [...] ECG Confirmed by SUSAN MORENO, ROLF ([id number]), editorial project manager IRAM CONKLIN ([id number]) on 09/14/2017 1:32:09 PM Referred By: Ha Lyle Confirmed By:ROLF MON MD 09/14/17 1332 Date Rolf Mon MD CC: Teresa Thrasher; Vania Sullivan MD; Mike Bella MD Signed CONSULTATION Observed: 09/12/2017 Status: F Source: [place] 6:34 AM [facility] [place] [facility] Medical Records Department [address] [place] [address] Consultation 09/11/17 0603 MR#: [id number] Acct: [id number] Name: SKYLER PINZON Rep #: [id number] : 1965 52 From: Fredi Padilla DO PCP: Mike Bella MD Status: DIS IN Y Location: [facility] [place] EG203-5 Reason for Consult Date of Consultation: 09/11/17 [...] my perspective. This note was generated with Nubisioation software. It may contain incorrect words, spelling, and punctuation that were not noted in checking the note before signing. Code Visit Inpatient E AND M: 46337 Init Hosp L3 09/12/17 0634 <Electronically signed by Fredi Padilla DO> Date Fredi Padilla DO Cosigner Signature (if applicable): Date CC: Fredi Padilla D.O.; Mike Bella MD Signed DISCHARGE SUMMARY Observed: 09/11/2017 Status: F Source: [place] 2:17 PM [facility] [place] [facility] Medical Records Department [address] [place] [address] [place] [address] Discharge Summary 09/11/17 1253 MR#: [id number] Acct: [id number] Name: SKYLER PINZON Rep #: [id number] : 1965 52 From: Bharti Aly TACTICAL/MOBILE WATCH OFFICER-C PCP: Mike Bella MD Status: ADM IN Y Location: [facility] [place] MN644-9 <Bharti Aly - Last Filed: 09/11/17 13:08> [...] 25 Code Visit OBSV E AND M: 95570 Observ/hosp same date L1 09/11/17 1308 <Electronically signed by Bharti REGAN> Date Bharti REGAN 09/11/17 1417<Electronically signed by Teresa Thrasher MD> Cosigner Signature (if applicable): Date Teresa Thrasher MD CC: JASS Aly; Teresa Thrasher; Mike Bella MD Signed DISCHARGE INSTRUCTION Observed: 09/11/2017 Status: F Source: [place] 12:53 PM [facility] [place] [facility] Medical Records Department [address] [place] [address] Instructions for Home/Discharge Instructions 09/11/17 1251 MR#: [id number] Acct: [id number] Name: SKYLER PINZON Rep #: [id number] : 1965 52 From: Bharti REGAN PCP: [...] 09/11/17 09/11/17 1253 <Electronically signed by Bharti CASEC> Date Bharti REGAN CC: Fredi Padilla D.O.; Mike Bella MD CHEST WITHOUT Observed: 09/11/2017 Status: F Source: [place] CONTRAST 7:25 AM [facility] [place] [facility] Imaging Services [address] [place] [address] Chest without Contrast MR#: [id number] Acct: [id number] Name: SKYLER PINZON Rep #: [id number] : 1965 M 52 From: Teodoro Patterson PCP: Mike Bella MD Status: ADM IN Study: Chest without Contrast Date of Exam: 09/11/17 Exam# [id number] Ordering Dr: Fredi Padilla DO STUDY: CT [...] CC: Fredi Padilla D.O.; Mike Bella MD Pre School Manager: Signed BASIC METABOLIC Collected: 09/11/2017 Status: F Source: [place] PROFILE (BMP) 6:40 AM [facility] [place] TYPE CODE TESTS RESULT OUT OF [...] GAP 8 Performed By: #### L500.2500 #### [facility] [address] [place], [address] CBC W/DIFF, AUTOMATED Collected: 09/11/2017 Status: F Source: [place] 6:40 AM [facility] [place] TYPE CODE TESTS RESULT OUT OF [...] Lymph 1.15 Performed By: #### L100.0100 #### [facility] [address] [place], [address] EMERGENCY DEPARTMENT Observed: 09/11/2017 Status: F Source: [place] SUMMARY 1:43 AM [facility] [place] [facility] Medical Records Department [address] [place] [address] Emergency Department Summary 09/11/17 0005 MR#: [id number] Acct: [id number] Name: SKYLER PINZON Rep #: [id number] : 1965 52 From: Vania Sullivan MD [...] renal transplant This note was generated with Glassdoor dictation software. It may contain incorrect words, [...] your Primary Care Provider. Call [facility] ([phone]) or report to the closest Emergency Room. Call 911 if necessary. 09/11/17 0143 <Electronically signed by Vania Sullivan MD> Date Vania Sullivan MD Cosigner Signature (If Indicated): Date CC: Mike Bella MD HISTORY AND PHYSICAL Observed: 09/11/2017 Status: F Source: [place] EXAM 12:52 AM [facility] [place] [facility] Medical Records Department [address] [facility] [place] [address] History and Physical 09/11/17 0008 MR#: [id number] Acct: [id number] Name: SKYLER PINZON Rep #: [id number] : 1965 52 From: Jesica Russo PCP: [...] with nodular components who presents to the [facility] ED on 09/11/17 with history of [...] and recent PE who presents to the [facility] ED on 09/11/17 with history of [...] minutes. Code Visit Inpatient E AND M: 94991 Init Hosp L3 Procedures: 17962 Advncd Care Plan 30 Min 09/11/17 0052 <Electronically signed by Jesica Russo > Date Jesica Russo Cosigner Signature: Date (if applicable) CC: Jesica Russo; Mike Bella MD Signed Observed: 09/11/2017 Status: F Source: [place] RESPIRATORY PANEL 12:50 AM [facility] [place] RP PANEL Normal Reference Range [...] HUMAN META Performed By: #### M100.638 #### [facility] [address] [facility]. [place], [place], [address] MAGNESIUM Collected: 09/11/2017 Status: F Source: [place] 12:00 AM [facility] [place] TYPE CODE TESTS RESULT OUT OF RANGE REFERENCE UNITS LAB L501.5200 1.6-2.6 mg/dL Normal MG 1.7 Performed By: #### L501.5200 #### [facility] [place], [address] Observed: 09/10/2017 Status: F Source: [place] CULTURE, BLOOD (WB) 11:25 PM [facility] [place] BC No growth in 5 days. Performed By: #### M200.1000 #### [facility] [address] [place], [place], [address] CBC W/DIFF, AUTOMATED Collected: 09/10/2017 Status: F Source: [place] 11:10 PM [facility] [place] TYPE CODE TESTS RESULT OUT OF [...] Lymph 0.75 Performed By: #### L100.0100 #### [facility] [address] [facility] [place], [address] BASIC METABOLIC Collected: 09/10/2017 Status: F Source: [place] PROFILE (BMP) 11:10 PM [facility] [place] TYPE CODE TESTS RESULT OUT OF [...] GAP 7 Performed By: #### L500.2500 #### [facility] [address] [place], [address] URINALYSIS, COMPLETE Collected: 09/10/2017 Status: F Source: [place] 11:10 PM [facility] [place] Order Comment: Order Date: 09/10/17 COLOR OF URINE MAY AFFECT DIPSTICK RESULTS. How was Urine Obtained? PHOTOGRAPH DEVELOPER TO SPECIFY TYPE CODE TESTS RESULT OUT [...] URINE SEEN Performed By: #### L400.0001 #### [facility] [place], [place], [address] LACTIC ACID Collected: 09/10/2017 Status: F Source: [place] 11:10 PM [facility] [place] Order Comment: Yes/No query for Sepsis Lactate Rule Y TYPE CODE TESTS RESULT OUT OF RANGE REFERENCE UNITS LAB L503.6005 0.4-2.0 mmol/L Normal LACTIC ACID 0.9 Performed By: #### L503.6005 #### [facility] [place], [address] Observed: 09/10/2017 Status: F Source: [place] CULTURE, BLOOD (WB) 11:10 PM [facility] [place] BC No growth in 5 days. Performed By: #### M200.1000 #### [facility] [place], [address] CHEST 1 VIEW Observed: 09/10/2017 Status: F Source: [place] (PORTABLE) 10:47 PM [facility] [place] [facility] Imaging Services [address] [place] [address] Chest 1 View (Portable) MR#: [id number] Acct: [id number] Name: SKYLER PINZON Rep #: [id number] : 1965 M 52 From: López Wong MD PCP: Mike Bella MD Status: REG ER Study: Chest 1 View (Portable) Date of Exam: 09/10/17 Exam# [id number] Ordering Dr: Vania Sullivan MD STUDY: X-RAY [...] CC: Vania Sullivan MD; Mike Bella MD Pre School Manager: Signed CHEST PA AND LATERAL Observed: 09/09/2017 Status: F Source: [place] 12:03 PM [facility] [place] [facility] Imaging Services [address] [place] [address] Chest PA and Lateral MR#: [id number] Acct: [id number] Name: SKYLER PINZON Rep #: [id number] : 1965 M 52 From: López Wong MD PCP: Mike Bella MD Status: REG CLI Study: Chest PA and Lateral Date of Exam: 09/09/17 Exam# [id number] Ordering Dr: Ha Lyle MD STUDY: X-RAY [...] CC: Ha Lyle MD; Mike Bella MD Pre School Manager: Signed 12 LEAD ELECTROCARDIOGRAM Observed: 08/22/2017 Status: F Source: [place] 8:55 PM [facility] [place] [facility] Cardiovascular Services [address] [place] [address] 12 Lead EKG 08/17/17 2344 MR#: [id number] Acct: [id number] Name: SKYLER PINZON Rep #: [id number] : 1965 52 From: Dylan Reid MD Attending Dr: Ambrosio Solis DO Status: DIS PILY Ordering Dr: Sally Simon MD Date: 08/18/17 Location: [facility] [place] Sex: M C Admitted: 08/18/17 Test Reason [...] Normal ECG Confirmed by DYLAN REID ([id number]), editorial project manager IRAM CONKLIN ([id number]) on 08/19/2017 2:15:50 PM Referred By: PAUL Confirmed By:DYLAN REID 08/19/17 1415 Date Dylan Reid MD CC: Ambrosio Solis DO; Sally Simon MD; Mike Bella MD Signed CBC W/DIFF, AUTOMATED Collected: 08/20/2017 Status: F Source: [place] 8:05 AM [facility] [place] Order Comment: TAC, CBC, AND RENAL TO DR. RAO CBC TO DR. SUAREZ RENAL AND CULTURE TO DR. CRENSHAW ([facility]) CANCELLED DUE TO RENAL TYPE CODE [...] Lymph 0.83 Performed By: #### L100.0100 #### [facility] [address] [place], [place], [address] RENAL PROFILE Collected: 08/20/2017 Status: F Source: [place] 8:05 AM [facility] [place] Order Comment: TAC, CBC, AND RENAL TO DR. RAO CBC TO DR. SUAREZ RENAL AND CULTURE TO DR. CRENSHAW ([facility]) CANCELLED DUE TO RENAL TYPE CODE [...] CO2 24.0 Performed By: #### L500.3600 #### [facility] [address] [place], [address] Observed: 08/20/2017 Status: F Source: [place] CULTURE, URINE 8:05 AM [facility] [place] TAC, CBC, AND RENAL TO DR. RAO CBC TO DR. SUAREZ RENAL AND CULTURE TO DR. CRENSHAW ([facility]) CANCELLED DUE TO RENAL Urine Culture ORGANISM 1: Enterococcus faecium Humphreys Count 80,000-100,000 Enterococcus faecium: REACTION Ampicillin $ 16 R Benzylpenicillin NF 32 R Ciprofloxacin $ >=8 R Gentamicin SYN-S S Levofloxacin $ >=8 R Linezolid $$$$ 2 S Nitrofurantoin $ 32 S Streptomycin $ SYN-S S Tetracycline NF >=16 R Vancomycin $ <=0.5 S (NF) indicates non-formulary drug at [facility]. Approval by Infectious Disease Specialist required before non-formulary drugs may be ordered and/or dispensed. * CLSI guidelines does not recommend testing of cephalosporins. This interpretation is deduced from Beta-lactam/penicillin results. Performed By: #### M100.0650 #### [facility] [address] [place], [address] TACROLIMUS (PROGRAF) Collected: 08/20/2017 Status: F Source: [place] 8:05 AM [facility] [place] Order Comment: TAC, CBC, AND RENAL TO DR. RAO CBC TO DR. SUAREZ RENAL AND CULTURE TO DR. CRENSHAW ([facility]) CANCELLED DUE TO RENAL TYPE CODE TESTS RESULT OUT OF RANGE REFERENCE UNITS LAB L3380.1100 2.0-20.0 ng/mL Normal TACROLIMUS 5.4 Result Comment: Trough (immediately following transplant) 15.0 Trough (steady state, 2 weeks or more after transplant): 3.0 - 8.0 Detection Limit = 1.0 Performed by LC-MS/MS technology. Performed at: [address] [id number] Computer Forensics Investigator: Renan Soares MD, Phone: [phone] Performed By: #### L3380.1000 #### [facility] (refer to report for specific site) refer to report for address and phone number DISCHARGE SUMMARY Observed: 08/19/2017 Status: F Source: [place] 6:38 AM [facility] [place] [facility] Medical Records Department [address] [place] [address] Discharge Summary 07/18/17 0958 MR#: [id number] Acct: [id number] Name: SKYLER PINZON Rep #: [id number] : 1965 52 From: Bharti REGAN PCP: Mike Bella MD Status: DIS IN Y Location: [facility] [id number] ADDENDUM by Keli Metzger on 08/19/17 at [...] (Choose all that apply): None applicable <Adilene Metzgere - Last Filed: 07/26/17 19:17> Discharge Date [...] have been written. Inpatient E AND M: 13071 Disch Hosp 07/18/17 1004 <Electronically signed by Bharti Aly NP-C> Date Bharti CASEC 07/26/17 1917<Electronically signed by Adilene Metzger DO> Cosigner Signature (if applicable): Date Adilene Metzger DO CC: TACTICAL/MOBILE WATCH OFFICERSpC Bharti Aly; Keli Metzger; Mike Bella MD Signed DISCHARGE SUMMARY Observed: 08/18/2017 Status: F Source: [place] 12:11 PM [facility] [place] Medical Records Department [address] [facility] [place] [address] Discharge Summary 08/18/17 1208 MR#: [id number] Acct: [id number] Name: SKYLER PINZON Rep #: [id number] : 1965 52 From: Ambrosio Solis DO PCP: Mike Bella MD Status: ADM PILY Y Location: [place] [address] Discharge Date and Diagnosis - Problem List [...] Days #12 tablet PRN Reason: Mod-Severe Pain () Primary Care Physician: Mike Bella MD [Primary Care Provider] - Within 2 Weeks Patient Instructions: ED Chest Pain NonCardiac Disposition: Home Minutes spent on discharge:: 25 Patient Condition:: Good Medical Necessity - Tobacco Use Smoking Status: Never smoker Tobacco Use: Non-smoker Meaningful Use Info Meaningful Use Diagnoses (Choose all that apply): None applicable Code Visit OBSV E AND M: 89678 Observation care discharge 08/18/17 1211 <Electronically signed by Ambrosio Solis DO> Date Ambrosio Solis DO Cosigner Signature (if applicable): Date CC: Ambrosio Solis DO; Mike Bella MD Signed DISCHARGE INSTRUCTION Observed: 08/18/2017 Status: F Source: [place] 12:07 PM [facility] [place] Medical Records Department [address] [place] [address] Instructions for Home/Discharge Instructions 08/18/17 1206 MR#: [id number] Acct: [id number] Name: SKYLER PINZON Rep #: [id number] : 1965 52 From: Ambrosio Solis DO [...] 08/18/17 08/18/17 1207 <Electronically signed by Ambrosio Jopperi DO> Date Ambrosio Solis DO CC: Mike Bella MD Observed: 08/18/2017 Status: F Source: [place] RESPIRATORY PANEL 5:05 AM [facility] [place] [facility] RP PANEL ADENOVIRUS Not Detected [...] acid amplification Performed By: #### M100.638 #### [facility] [place], [address] TROPONIN-I Collected: 08/18/2017 Status: F Source: [place] 5:00 AM [facility] [place] [facility] Order Comment: 'TROP' Serial specimen #1, #2, #3, or #4: 1 TYPE CODE TESTS RESULT OUT OF RANGE REFERENCE UNITS LAB L501.4010 <0.06 ng/mL Normal < 0.02 TROPONIN-I Result Comment: TROPONIN-I EXPECTED VALUES <0.05 NEGATIVE 0.06 - 0.59 AT RISK OF W[place] > OR = 0.60 SUGGEST WV Performed By: #### L501.4010 #### [facility] [address] [place], [address] EMERGENCY DEPARTMENT Observed: 08/18/2017 Status: F Source: [place] SUMMARY 4:40 AM [facility] [place] [facility] Medical Records Department [facility] [place] [address] Emergency Department Summary 08/18/17 0003 MR#: [id number] Acct: [id number] Name: SKYLER PINZON Rep #: [id number] : 1965 52 From: Sally Simon MD [...] chest pain and remained mildly tachycardic on diesel engine specialist. He received additional morphine without improvement. Given [...] pain, pleurisy This note was generated with Glassdoor dictation software. It may contain incorrect words, spelling, and punctuation that were not noted in review of the chart prior to signing ED Disposition - Plan for ED Patient: Disposition: Acute [facility] Chief Complaint: Chest Pain What to do if you have Problems For any increased pain, shortness of breath, bleeding, nausea or vomiting, chest pain, or any unexpected problems, contact your Primary Care Provider. Call [facility] ([phone]) or report to the closest Emergency Room. Call 911 if necessary. 08/18/17 0440 <Electronically signed by Sally Simon MD> Date Sally Simon MD Cosigner Signature (If Indicated): Date CC: Mike Bella MD HISTORY AND PHYSICAL Observed: 08/18/2017 Status: F Source: [place] EXAM 4:06 AM [facility] [place] [facility] Medical Records Department [address] [place] [address] History and Physical 08/18/17 0351 MR#: [id number] Acct: [id number] Name: SKYLER PINZON Rep #: [id number] : 1965 52 From: Luis Armando Chapman DO PCP: Mike Bella MD Status: ADM PILY Y Location: [place] [address] Problem List (1) Right-sided chest pain Status: Acute (2) Nonproductive cough Status: Acute History of Present Illness Date of Admission: 08/18/17 Chief Complaint: Nonproductive cough, right sided chest pain The patient is a 52 year old M who was seen in the emergency room at [facility] after being brought in by his [...] time Code Visit OBSV E AND M: 40665 Initial observation care L3 08/18/17 0406 <Electronically signed by Luis Armando Chapman DO> Date Luis Armando Chapman DO Cosigner Signature: Date (if applicable) CC: Luis Armando Chapman DO; Mike Bella MD Signed URINALYSIS, COMPLETE Collected: 08/18/2017 Status: F Source: [place] 1:20 AM [facility] [place] [facility] Order Comment: COLOR OF URINE MAY [...] 0 SEEN Performed By: #### L400.0001 #### [facility] [address] [place], [place], [address] Observed: 08/18/2017 Status: F Source: [place] CULTURE, URINE 1:20 AM [facility] [place] [facility] Has pt arrived? Y Urine Culture ORGANISM 1: Mixed Gram Positive Organisms Humphreys Count 11,000-25,000 MIX CULTURE Mixed contaminants. Submit a new specimen if indicated. Performed By: #### M100.0650 #### [facility] [address] [place], [place], [address] CHEST PA AND LATERAL Observed: 08/18/2017 Status: F Source: [place] 12:04 AM [facility] [place] [facility] Imaging Services [address] [place] [address] Chest PA and Lateral MR#: [id number] Acct: [id number] Name: SKYLER PINZON Rep #: [id number] : 1965 M 52 From: Iram Barr MD PCP: Mike Bella MD Status: REG ER Study: Chest PA and Lateral Date of Exam: 08/18/17 Exam# [id number] Ordering Dr: Sally Simon MD XR Chest [...] CC: Sally Simon MD; Mike Bella MD Pre School Manager: Signed CBC W/DIFF, AUTOMATED Collected: 08/17/2017 Status: F Source: [place] 11:40 PM [facility] [place] [facility] TYPE CODE TESTS RESULT OUT OF [...] Lymph 1.10 Performed By: #### L100.0100 #### [facility] [address] [place], [place], [address] PROTHROMBIN TIME W/INR Collected: 08/17/2017 Status: F Source: [place] 11:40 PM [facility] [place] [facility] TYPE CODE TESTS RESULT OUT OF RANGE REFERENCE UNITS LAB L300.4150 11.7-14.9 SECONDS High PROTIME 16.4 LAB L300.4200 Normal INR 1.3 Performed By: #### L300.3900, L300.4310 #### [facility] [address] [place], [place], [address] PARTIAL THROMBOPLAST Collected: 08/17/2017 Status: F Source: [facility] 11:40 PM [facility] [place] [facility] TYPE CODE TESTS RESULT OUT OF RANGE REFERENCE UNITS LAB L300.4310 24.1-36.2 Seconds Normal PTT 33.6 Performed By: #### L300.3900, L300.4310 #### [facility] [address] [place], [address] COMPREHENSIVE METABOLIC Collected: 08/17/2017 Status: F Source: [place] PROFIL 11:40 PM [facility] [place] [facility] Order Comment: 'TROP' Serial specimen #1, [...] Performed By: #### L500.4050, L501.2450, L501.4010 #### [facility] [address] [place], [place], [address] LIPASE Collected: 08/17/2017 Status: F Source: [place] 11:40 PM [facility] [place] [facility] Order Comment: 'TROP' Serial specimen #1, #2, #3, or #4: 1 TYPE CODE TESTS RESULT OUT OF REFERENCE UNITS RANGE LAB L501.2450 73-393 U/L High LIPASE 396 Performed By: #### L500.4050, L501.2450, L501.4010 #### [facility] [address] [place], [address] TROPONIN-I Collected: 08/17/2017 Status: F Source: [place] 11:40 PM [facility] [place] [facility] Order Comment: 'TROP' Serial specimen #1, #2, #3, or #4: 1 TYPE CODE TESTS RESULT OUT OF RANGE REFERENCE UNITS LAB L501.4010 <0.06 ng/mL Normal < 0.02 TROPONIN-I Result Comment: TROPONIN-I EXPECTED VALUES <0.05 NEGATIVE 0.06 - 0.59 AT RISK OF [place] > OR = 0.60 SUGGEST [place] Performed By: #### L500.4050, L501.2450, L501.4010 #### [facility] [address] [place], [address] 12 LEAD ELECTROCARDIOGRAM Observed: 07/29/2017 Status: F Source: [place] 3:19 PM [facility] [place] [facility] Cardiovascular Services [address] [place] [address] 12 Lead EKG 07/28/17 0143 MR#: [id number] Acct: [id number] Name: SKYLER PINZON Rep #: [id number] : 1965 52 From: Rolf Mon MD [...] ECG Confirmed by ROLF MON MD ([id number]), editorial project manager IRAM CONKLIN ([id number]) on 07/29/2017 3:19:34 PM Referred By: SARA RAO Confirmed By:ROLF MON MD 07/29/17 1514 Date Rolf Mon MD CC: Jose Armando Mosqueda MD; Mike Bella MD Signed EMERGENCY DEPARTMENT Observed: 07/28/2017 Status: F Source: [place] SUMMARY 4:05 AM [facility] [place] [facility] Medical Records Department [address] [place] [address] Emergency Department Summary 07/28/17 0303 MR#: [id number] Acct: [id number] Name: SKYLER PINZON Rep #: [id number] : 1965 52 From: Jose Armando Mosqueda MD PCP: Mike Belal MD Status: DEP ER - ER Visit [...] chest pain This note was generated with Dragon dictation software. It may contain incorrect words, [...] your Primary Care Provider. Call [facility] ([phone]) or report to the closest Emergency Room. Call 911 if necessary. 07/28/17404 <Electronically signed by Jose Armando Mosqueda MD> Date Jose Armando Mosqueda MD Cosigner Signature (If Indicated): Date CC: Mike Bella MD DISCHARGE INSTRUCTION Observed: 07/28/2017 Status: F Source: [place] 4:05 AM [facility] [place] [facility] Medical Records Department [address] [place] [address] Discharge Instruction 07/28/17304 MR#: [id number] Acct: [id number] Name: SKYLER PINZON Rep #: [id number] : 1965 52 From: Jose Armando Mosqueda MD PCP: Mike Bella MD Status: [facility] ED Disposition - Plan for ED Patient: Disposition: Home or Assisted Living Chief Complaint: Chest Pain Instructions: Pulmonary Embolism Referrals: Mike Bella MD [Primary Care Provider] - What to do if you have Problems For any increased pain, shortness of breath, bleeding, nausea or vomiting, chest pain, or any unexpected problems, contact your Primary Care Provider. Call [facility] ([phone]) or report to the closest Emergency Room. Call 911 if necessary. 07/28/17404 <Electronically signed by Jose Armando Mosqueda MD> Date Jose Armando Mosqueda MD Cosigner Signature (If Indicated): Date CC: Mike Bella MD CBC W/DIFF, AUTOMATED Collected: 07/28/2017 Status: C Source: [place] 2:25 AM [facility] [place] [facility] TYPE CODE TESTS RESULT OUT OF [...] August carmen Performed By: #### L100.0100 #### [facility] [address] [place], [place], [address] BASIC METABOLIC Collected: 07/28/2017 Status: F Source: [place] PROFILE (BMP) 2:25 AM [facility] [place] [facility] Order Comment: 'TROP' Serial specimen #1, [...] 9 Performed By: #### L500.2500, L501.4010 #### [facility] [address] [place], [place], [address] TROPONIN-I Collected: 07/28/2017 Status: F Source: [place] 2:25 AM [facility] [place] [facility] Order Comment: 'TROP' Serial specimen #1, #2, #3, or #4: 1 TYPE CODE TESTS RESULT OUT OF RANGE REFERENCE UNITS LAB L501.4010 <0.06 ng/mL Normal < 0.02 TROPONIN-I Result Comment: TROPONIN-I EXPECTED VALUES <0.05 NEGATIVE 0.06 - 0.59 AT RISK OF [place] > OR = 0.60 SUGGEST [place] Performed By: #### L500.2500, L501.4010 #### [facility] [address] [place], [address] CHEST 1 VIEW Observed: 07/28/2017 Status: F Source: [place] (PORTABLE) 2:08 AM [facility] [place] [facility] Imaging Services [address] [place] [address] Chest 1 View (Portable) MR#: [id number] Acct: [id number] Name: SKYLER PINZON Rep #: [id number] : 1965 M 52 From: Peter Gamez PCP: Mike Bella MD Status: REG ER Study: Chest 1 View (Portable) Date of Exam: 07/28/17 Exam# [id number] Ordering Dr: Jose Armando Mosqueda MD STUDY: [...] Jose Armando Mosqueda MD; Mike Bella MD Pre School Manager: Signed 12 LEAD ELECTROCARDIOGRAM Observed: 07/23/2017 Status: F Source: [place] 1:47 PM [facility] REPOSITORY [facility] Cardiovascular Services [address] [place] [address] 12 Lead EKG 07/20/172054 MR#: [id number] Acct: [id number] Name: SKLYER PINZON Rep #: [id number] : 1965 52 From: Rolf Mon MD Attending Dr: Cleopatra Rey MD Status: DIS PILY Ordering Dr: Brooks Fallon DO Date: 07/20/17 Location: [facility] Sex: M C Admitted: 07/21/17 Test [...] ECG Confirmed by SUSAN MORENO, ROLF ([id number]), editorial project manager IRAM CONKLIN ([id number]) on 07/23/2017 1:46:52 PM Referred By: GIA Confirmed By:ROLF MON MD 07/23/17 1346 Date Rolf Mon MD CC: Mike Bella MD; Brooks Fallon DO Signed 12 LEAD ELECTROCARDIOGRAM Observed: 07/23/2017 Status: F Source: [place] 1:46 PM [facility] REPOSITORY [facility] Cardiovascular Services [address] [place] [address] 12 Lead EKG 07/21/17 0020 MR#: [id number] Acct: [id number] Name: SKYLER PINZON Rep #: [id number] : 1965 52 From: Rolf Mon MD Attending Dr: Cleopatra Rey MD Status: DIS PILY Ordering Dr: Brooks Fallon DO Date: 07/20/17 Location: [facility] Sex: M C Admitted: 07/21/17 Test Reason : REPEAT Blood Pressure : / mmHG Vent. Rate : 090 BPM Atrial Rate : 090 BPM P-R Int : 128 ms QRS Dur : 078 ms QT Int : 378 ms P-R-T Axes : 063 013 046 degrees QTc Int : 462 ms Normal sinus rhythm Normal ECG Confirmed by SUSAN MOERNO, ROLF ([id number]), editorial project manager IRAM CONKLIN ([id number]) on 07/23/2017 1:46:08 PM Referred By: GIA Confirmed By:ROLF MON MD 07/23/17 1346 Date Rolf Mon MD CC: Mike Bella MD; Brooks Fallon DO Signed DISCHARGE SUMMARY Observed: 07/22/2017 Status: F Source: [place] 4:55 PM [facility] [place] [facility] Medical Records Department [address] [place] [address] Discharge Summary 07/21/17 1236 MR#: [id number] Acct: [id number] Name: SKYLER PINZON Rep #: [id number] : 1965 52 From: Bharti REGAN PCP: Mike Bella MD Status: DIS PILY Y Location: [place] [address] ADDENDUM by Cleopatra Rey MD on 07/22/17 at 1655 Code Visit OBSV E AND M: 47285 Observ/hosp same date L3 07/22/17 1655 <Electronically [...] given w/in hospital stay or rx'd at me?: Yes Pt receive overlap for 5 days?: No Reason overlap not ordered, prescribed, or given for 5 days: Treatment Not Indicated 07/21/17 1250 <Electronically signed by Bharti REGAN> Date Bharti CASEC 07/21/17 1253<Electronically signed by Cleopatra Rey MD> Cosigner Signature (if applicable): Date Cleopatra Rey MD CC: JASS Aly; Cleopatra Rey MD; Mike Bella MD Signed CBC-COMPLETE BLOOD CNT Collected: 07/22/2017 Status: F Source: [place] NO DIFF 8:12 AM [facility] REPOSITORY TYPE CODE TESTS RESULT OUT [...] MPV 10.0 Performed By: #### L100.0500 #### [facility] [address] [place], [address] RENAL PROFILE Collected: 07/22/2017 Status: F Source: [place] 8:12 AM [facility] [place] [facility] TYPE CODE TESTS RESULT OUT OF [...] CO2 22.0 Performed By: #### L500.3600 #### [facility] [address] [place], [address] TACROLIMUS (PROGRAF) Collected: 07/22/2017 Status: F Source: [place] 8:12 AM [facility] [place] [facility] TYPE CODE TESTS RESULT OUT OF RANGE REFERENCE UNITS LAB L3380.1100 2.0-20.0 ng/mL Normal TACROLIMUS 6.5 Result Comment: Trough (immediately following transplant) 15.0 Trough (steady state, 2 weeks or more after transplant): 3.0 - 8.0 Detection Limit = 1.0 Performed by LC-MS/MS technology. Performed at: [facility] [id number] Computer Forensics Investigator: Renan Soares MD, Phone: [phone] Performed By: #### L3380.1000 #### [facility] (refer to report for specific site) refer to report for address and phone number DISCHARGE INSTRUCTION Observed: 07/21/2017 Status: F Source: [place] 12:36 PM [facility] [place] [facility] Medical Records Department [address] [place] [address] Instructions for Home/Discharge Instructions 07/21/17 1229 MR#: [id number] Acct: [id number] Name: SKYLER PINZON Rep #: [id number] : 1965 52 From: Bharti REGAN PCP: [...] treatment. Recommend you follow up with a technology services manager that looks for reasons why you had [...] F Source: [place] PROFILE (BMP) 5:06 AM [facility] [place] [facility] Order Comment: 'TROP' Serial specimen #1, [...] 9 Performed By: #### L500.2500, L501.4010 #### [facility] [address] [facility] [facility] [address] TROPONIN-I Collected: 07/21/2017 Status: F Source: [place] 5:06 AM [facility] [place] [facility] Order Comment: 'TROP' Serial specimen #1, #2, #3, or #4: 2 TYPE CODE TESTS RESULT OUT OF RANGE REFERENCE UNITS LAB L501.4010 <0.06 ng/mL Normal < 0.02 TROPONIN-I Result Comment: TROPONIN-I EXPECTED VALUES <0.05 NEGATIVE 0.06 - 0.59 AT RISK OF [place] > OR = 0.60 SUGGEST [place] Performed By: #### L500.2500, L501.4010 #### [facility] [address] [place], [place], [address] TROPONIN-I Collected: 07/21/2017 Status: F Source: [place] 2:05 AM [facility] [place] [facility] Order Comment: 'TROP' Serial specimen #1, #2, #3, or #4: 2 TYPE CODE TESTS RESULT OUT OF RANGE REFERENCE UNITS LAB L501.4010 <0.06 ng/mL Normal < 0.02 TROPONIN-I Result Comment: TROPONIN-I EXPECTED VALUES <0.05 NEGATIVE 0.06 - 0.59 AT RISK OF [place] > OR = 0.60 SUGGEST [place] Performed By: #### L501.4010 #### [facility] [address] [place], [address] HISTORY AND PHYSICAL Observed: 07/21/2017 Status: F Source: [place] EXAM 12:35 AM [facility] [place] [facility] Medical Records Department [address] [place] [address] History and Physical 07/21/17 0024 MR#: [id number] Acct: [id number] Name: SKYLER PINZON Rep #: [id number] : 1965 52 From: Ambrosio Solis DO PCP: Mike Bella MD Status: ADM PILY Y Location: [place] [address] Problem List (1) Pulmonary embolism Status: Acute [...] patient's sister, who is patient's power of patent prosecution attorney and advised the NOACs over Coumadin. [...] sister, who is the patient's power of patent prosecution attorney, discussed CPR and endotracheal intubation. Patient is to continue to be full CODE STATUS at this time. She does state that she he does have a follow-up appointment with his primary care doctor, Dr. Bella, in the coming week or 2 and they plan on discussing it with him at that time. Code Visit OBSV E AND M: 52293 Initial observation care L3 07/21/17 0035 <Electronically signed by Ambrosio Solis DO> Date Ambrosio Solis DO Cosigner Signature: Date (if applicable) CC: Ambrosio Solis DO; Mike Bella MD Signed EMERGENCY DEPARTMENT Observed: 07/20/2017 Status: F Source: [place] SUMMARY 11:51 PM [facility] [place] [facility] Medical Records Department [address] [place] [address] Emergency Department Summary 07/20/17 2348 MR#: [id number] Acct: [id number] Name: SKYLER PINZON Rep #: [id number] : 1965 52 From: Brooks Fallon DO [...] embolism Pneumonia] This note was generated with Nubisioation software. It may contain incorrect words, spelling, [...] problems, contact your Primary Care Provider. Call [facility] ([phone]) or report to the closest Emergency Room. Call 911 if necessary. 07/20/17 2681 <Electronically signed by Brooks Fallon DO> Date Brooks Fallon DO Cosigner Signature (If Indicated): Date CC: Mike Bella MD CTA CHEST W/WO Observed: 07/20/2017 Status: F Source: [place] CONTRAST 10:09 PM [facility] [place] [facility] Imaging Services [address] [place] [address] CTA Chest W/WO Contrast MR#: [id number] Acct: [id number] Name: SKYLER PINZON Rep #: [id number] : 1965 M 52 From: Sheyla Long MD PCP: Mike Bella MD Status: REG ER Study: CTA Chest W/WO Contrast Date of Exam: 07/20/17 Exam# [id number] Ordering Dr: Brooks Fallon DO STUDY: CTA [...] CC: Mike Bella MD; Brooks Fallon DO Pre School Manager: Signed CHEST 1 VIEW Observed: 07/20/2017 Status: F Source: [place] (PORTABLE) 9:04 PM [facility] [place] [facility] Imaging Services [address] [place] [address] Chest 1 View (Portable) MR#: [id number] Acct: [id number] Name: SKYLER PINZON Rep #: [id number] : 1965 M 52 From: Sheyla Long MD PCP: Mike Bella MD Status: REG ER Study: Chest 1 View (Portable) Date of Exam: 07/20/17 Exam# [id number] Ordering Dr: Brooks Fallon DO STUDY: X-RAY [...] CC: Mike Bella MD; Brooks Fallon DO Pre School Manager: Signed BASIC METABOLIC Collected: 07/20/2017 Status: F Source: [place] PROFILE (BMP) 8:55 PM [facility] [place] [facility] Order Comment: 'TROP' Serial specimen #1, [...] 11 Performed By: #### L500.2500, L501.4010 #### [facility] [address] [place], [place], [address] TROPONIN-I Collected: 07/20/2017 Status: F Source: [place] 8:55 PM [facility] [place] [facility] Order Comment: 'TROP' Serial specimen #1, #2, #3, or #4: 1 TYPE CODE TESTS RESULT OUT OF RANGE REFERENCE UNITS LAB L501.4010 <0.06 ng/mL Normal < 0.02 TROPONIN-I Result Comment: TROPONIN-I EXPECTED VALUES <0.05 NEGATIVE 0.06 - 0.59 AT RISK OF [place] > OR = 0.60 SUGGEST [place] Performed By: #### L500.2500, L501.4010 #### [facility] [address] [place], [address] CBC W/DIFF, AUTOMATED Collected: 07/20/2017 Status: C Source: [place] 8:55 PM [facility] [place] [facility] TYPE CODE TESTS RESULT OUT OF [...] 1050 PATH REV previously reported as: August carmen Performed By: #### L100.0100 #### [facility] [address] [place], [address] D-DIMER QUANTITATIVE Collected: 07/20/2017 Status: F Source: [place] (DVT/PE) 8:55 PM [facility] [place] [facility] TYPE CODE TESTS RESULT OUT OF RANGE REFERENCE UNITS LAB L300.8000 0.27-0.49 FEU/ug/m High alert D-DIMER 4.98 QUANT Result Comment: D-Dimer ELEVATED (>0.49): Additional studies and clinical assessments are indicated to conclude diagnosis of: Deep Vein Thrombosis (DVT) or Pulmonary Embolism (PE) CRITICAL VALUE VERIFIED. CALLED TO [facility] 07/20/17 1546 Amelia Mina. RESULTS READ BACK BY SAME . Performed By: #### L300.8000 #### [facility] [address] [place], [address] DISCHARGE INSTRUCTION Observed: 07/18/2017 Status: F Source: [place] 9:58 AM [facility] [place] [facility] Medical Records Department [address] [place] [address] Instructions for Home/Discharge Instructions 07/18/17 0952 MR#: [id number] Acct: [id number] Name: SKYLER PINZON Rep #: [id number] : 1965 52 From: Bharti Aly TACTICAL/MOBILE WATCH OFFICERSpC PCP: Mike Bella MD Status: ADM IN [...] 07/18/17 07/18/17 0958 <Electronically signed by Bharti CASEC> Date Bharti REGAN CC: Jose Bruno M.D.; Mike Bella MD; Cheng Santos MD CBC-COMPLETE BLOOD CNT Collected: 07/18/2017 Status: F Source: [place] NO DIFF 6:14 AM [facility] [place] [facility] TYPE CODE TESTS RESULT OUT OF [...] MPV 11.2 Performed By: #### L100.0500 #### [facility] [address] [place], [address] BASIC METABOLIC Collected: 07/18/2017 Status: F Source: [place] PROFILE (BMP) 6:14 AM [facility] [place] [facility] TYPE CODE TESTS RESULT OUT OF [...] 9 Performed By: #### L500.2500, L501.2300 #### [facility] [address] [facility] [facility] [place], [place], [address] PHOSPHORUS Collected: 07/18/2017 Status: F Source: [place] 6:14 AM [facility] [place] [facility] TYPE CODE TESTS RESULT OUT OF RANGE REFERENCE UNITS LAB L501.2300 2.5-4.9 mg/dL Low PHOS 2.1 Performed By: #### L500.2500, L501.2300 #### [facility] [address] [place], [address] Observed: 07/17/2017 Status: F Source: [place] CDIFF (MOLECULAR) 8:52 AM [facility] [place] [facility] Order Date: 07/17/17 Cdiff-Molecular C. Diff DNA Negative- No toxigenic C. Diff DNA Detected NAAT METHOD Testing was performed using nucleic acid amplification Performed By: #### M100.6796 #### [facility] [address] [place], [place], [address] BASIC METABOLIC Collected: 07/17/2017 Status: F Source: [place] PROFILE (BMP) 7:24 AM [facility] [place] [facility] TYPE CODE TESTS RESULT OUT OF [...] GAP 9 Performed By: #### L500.2500 #### [facility] [address] [place], [address] CBC-COMPLETE BLOOD CNT Collected: 07/17/2017 Status: F Source: [place] NO DIFF 7:24 AM [facility] [place] [facility] TYPE CODE TESTS RESULT OUT OF [...] MPV 11.3 Performed By: #### L100.0500 #### [facility] [address] [place], [address] 12 LEAD ELECTROCARDIOGRAM Observed: 07/16/2017 Status: F Source: [place] 1:29 PM [facility] [place] [facility] Cardiovascular Services [address] [place] [address] 12 Lead EKG 07/13/17 2154 MR#: [id number] Acct: [id number] Name: SKYLER PINZON Rep #: [id number] : 1965 52 From: Rolf Mon MD Attending Dr: Keli Metzger Status: ADM IN Ordering Dr: Claus Lisa MD Date: 07/13/17 Location: [facility] Sex: M C Admitted: 07/13/17 Test Reason : FEVER Blood Pressure : / mmHG Vent. Rate : 122 BPM Atrial Rate : 122 BPM P-R Int : 136 ms QRS Dur : 076 ms QT Int : 306 ms P-R-T Axes : 040 -07 055 degrees QTc Int : 436 ms Sinus tachycardia Otherwise normal ECG Confirmed by ROLF MON MD ([id number]), editorial project manager IRAM CONKLIN ([id number]) on 07/16/2017 1:29:09 PM Referred By: BROOK Confirmed By:ROLF MON MD 07/16/17 1329 Date Rolf Mon MD CC: Claus Lisa; Mike Bella MD Signed CBC W/DIFF, AUTOMATED Collected: 07/16/2017 Status: C Source: [place] 5:55 AM [facility] [place] [facility] TYPE CODE TESTS RESULT OUT OF [...] 07/19/17 1114 PATH REV previously reported as: August carmen LAB L100.2620 2.0-7.7 X10 3/uL Normal Absolute Neut 4.4 LAB L100.2720 0.83-4.51 X10 3/ul Low Absolute Lymph 0.72 Performed By: #### L100.0100 #### [facility] [address] [place], [address] COMPREHENSIVE METABOLIC Collected: 07/16/2017 Status: F Source: [place] [facility] 5:55 AM [facility] [place] [facility] TYPE CODE TESTS RESULT OUT OF [...] Performed By: #### L500.4050, L501.2300, L501.5200 #### [facility] [address] [place], [address] PHOSPHORUS Collected: 07/16/2017 Status: F Source: [place] 5:55 AM [facility] [place] [facility] TYPE CODE TESTS RESULT OUT OF RANGE REFERENCE UNITS LAB L501.2300 2.5-4.9 mg/dL Low PHOS 2.2 Performed By: #### L500.4050, L501.2300, L501.5200 #### [facility] [address] [place], [address] MAGNESIUM Collected: 07/16/2017 Status: F Source: [place] 5:55 AM [facility] [place] [facility] TYPE CODE TESTS RESULT OUT OF RANGE REFERENCE UNITS LAB L501.5200 1.6-2.6 mg/dL Normal MG 1.7 Result Comment: Please note revised Magnesium reference range effective 2017. Performed By: #### L500.4050, L501.2300, L501.5200 #### [facility] [address] [place], [address] ABDOMEN/PELVIS WITHOUT Observed: 07/16/2017 Status: F Source: [place] CONT 12:01 AM [facility] [place] [facility] Imaging Services [address] [place] [address] Abdomen/Pelvis without Cont MR#: [id number] Acct: [id number] Name: SKYLER PINZON Rep #: [id number] : 1965 M 52 From: Miah Barrios MD PCP: Mike Bella MD Status: ADM IN Study: Abdomen/Pelvis without Cont Date of Exam: 07/16/17 Exam# [id number] Ordering Dr: Adilene Metzger DO STUDY: CT [...] , CC: Keli Metzger; Mike Bella MD Pre School Manager: Signed CONSULTATION Observed: 07/15/2017 Status: F Source: [place] 10:07 AM [facility] [place] [facility] Medical Records Department [address] [place] [address] Consultation 07/15/17 0956 MR#: [id number] Acct: [id number] Name: SKYLER PINZON Rep #: [id number] : 1965 52 From: Darin Williamson MD PCP: Mike Bella MD Status: ADM IN Y Location: [place] [address] Problem List (1) Kidney transplant recipient Status: [...] (Porcine) (Heparin Na) 5,000 unit SC BID SERA Last Admin: 07/15/17 09:02 Dose: 5,000 units Hydralazine HCl (Apresoline) 10 mg IV Q4H PRN PRN PRN Reason: SBP > 160 Sodium Chloride () 1,000 mls @ 150 mls/hr IV .Q6H40M [facility] Last Admin: 07/15/17 06:33 Dose: 150 mls/hr Meropenem 500 mg/ Sodium (Chloride) 60 mls @ 100 mls/hr IV Q6 [facility] Last Admin: 07/15/17 05:59 Dose: 100 [...] Mycophenolate Mofetil (Cellcept) 500 mg PO BID [facility] Last Admin: 07/15/17 09:03 Dose: 500 [...] ml Tacrolimus (Prograf) 2 mg PO BID [facility] Last Admin: 07/15/17 09:02 Dose: 2 mg Trimethoprim/Sulfamethoxazole (Bactrim Ds) [facility] Last Admin: 07/15/17 08:55 Dose: 0.5 tablet [...] Hours Intake Total 3756 / 3756 2017 / 2017 Output Total 1480 / 1480 1075 [...] F Source: [place] PROFILE (BMP) 5:43 AM [facility] [place] TYPE CODE TESTS RESULT OUT OF [...] Performed By: #### L500.2500, L501.2300, L501.5200 #### [facility] [address] [place], [place], [address] PHOSPHORUS Collected: 07/15/2017 Status: F Source: [place] 5:43 AM [facility] [place] TYPE CODE TESTS RESULT OUT OF RANGE REFERENCE UNITS LAB L501.2300 2.5-4.9 mg/dL Low PHOS 1.8 Performed By: #### L500.2500, L501.2300, L501.5200 #### [facility] [address] [facility] [place], [address] MAGNESIUM Collected: 07/15/2017 Status: F Source: [place] 5:43 AM [facility] [place] TYPE CODE TESTS RESULT OUT OF RANGE REFERENCE UNITS LAB L501.5200 1.6-2.6 mg/dL Normal MG 1.8 Result Comment: Please note revised Magnesium reference range effective 2017. Performed By: #### L500.2500, L501.2300, L501.5200 #### [facility] [address] [facility] [place], [place], [address] CBC W/DIFF, AUTOMATED Collected: 07/15/2017 Status: C Source: [place] 5:43 AM [facility] [place] TYPE CODE TESTS RESULT OUT OF [...] August carmen Performed By: #### L100.0100 #### [facility] [address] [place], [address] CONSULTATION Observed: 07/14/2017 Status: F Source: [place] 12:54 PM [facility] [place] [facility] Medical Records Department [address] [place] [address] Consultation 07/14/17 1212 MR#: [id number] Acct: [id number] Name: SKYLER PINZON Rep #: [id number] : 1965 52 From: Cheng Santos MD PCP: Mike Bella MD Status: ADM IN Y Location: MS2 [id number] ADDENDUM by Cheng Santos MD on 07/14/17 [...] W/DIFF, AUTOMATED Collected: 07/14/2017 Status: C Source: [place] 6:20 AM [facility] [place] TYPE CODE TESTS RESULT OUT OF [...] 07/14/17 1101 PATH REV previously reported as: Yeny morales Performed By: #### L100.0100 #### [facility] [address] [place], [address] BASIC METABOLIC Collected: 07/14/2017 Status: F Source: [place] PROFILE (BMP) 6:20 AM [facility] [place] TYPE CODE TESTS RESULT OUT OF [...] GAP 8 Performed By: #### L500.2500 #### [facility] [address] [place], [address] HISTORY AND PHYSICAL Observed: 07/14/2017 Status: F Source: [place] EXAM 1:05 AM [facility] [place] [facility] Medical Records Department [address] [place] [address] History and Physical 07/13/17 2336 MR#: [id number] Acct: [id number] Name: SKYLER PINZON Rep #: [id number] : 1965 52 From: Jesica Russo PCP: Mike Bella MD Status: ADM IN Y Location: [place] [address] Problem List (1) Congenital nystagmus Status: Chronic [...] catheterization, Hx DVT who presents to the [facility] ED on 07/13/17 with history of [...] - Right kidney transplant , dialysis access prior. Psychiatric History: No pertinent [...] catheterization, Hx DVT who presents to the [facility] ED on 07/13/17 with history of onset fever 102, nausea, emesis in addition to suprapubic pain x 24 hours. (1) Acute Complicated Urinary Tract Infection complicated by Neurogenic Bladder and Self-Catheterization: Will admit to [facility], UA upon ED evaluation remarkable, pending UCx, continue [...] heparin. Code Visit Inpatient E AND M: 21389 Init Hosp L3 07/14/17 0105 <Electronically signed by Jesica Russo > Date Jesica Russo Cosigner Signature: Date (if applicable) CC: Jesica Russo; Mike Bella MD Signed EMERGENCY DEPARTMENT Observed: 07/14/2017 Status: F Source: [place] SUMMARY 12:10 AM [facility] [place] [facility] Medical Records Department [address] [place] [address] Emergency Department Summary 07/13/17 2325 MR#: [id number] Acct: [id number] Name: KEEJolieSKYLER Rep #: [id number] : 1965 52 From: Claus Lisa MD [...] kidney disease This note was generated with Glassdoor dictation software. It may contain incorrect words, [...] your Primary Care Provider. Call [facility] ([phone]) or report to the closest Emergency Room. Call 911 if necessary. 07/14/17 0010 <Electronically signed by Claus Lisa MD> Date Claus Lisa MD Cosigner Signature (If Indicated): Date CC: Mike Bella MD URINALYSIS, COMPLETE Collected: 07/13/2017 Status: F Source: [place] 10:45 PM [facility] [place] Order Comment: How was Urine Obtained? [...] URINE SEEN Performed By: #### L400.0001 #### [facility] [address] [facility] [place], [address] Observed: 07/13/2017 Status: F Source: [place] CULTURE, URINE 10:45 PM [facility] [place] Urine Culture ORGANISM 1: Enterobacter aerogenes Humphreys Count >100,000 Enterobacter aerogenes: REACTION Amoxacillin/Clavulanic Acid $ 8 R Cefazolin $ >=64 R Cefepime $ <=1 S Ceftriaxone $ 16 I Ciprofloxacin $ 0.5 S Ertapenim $$$ <=0.5 S Gentamicin $ <=1 S Imipenem *NF <=0.25 S Levofloxacin $ 1 S Nitrofurantoin $ 64 I Piperacillin/Tazobactam $$ <=4 S Tobramycin $ <=1 S Trimethoprim/Sulfametho $ >=320 R (NF) indicates non-formulary drug at [facility]. Approval by Infectious Disease Specialist required before non-formulary drugs may be ordered and/or dispensed. Performed By: #### M100.0650 #### [facility] [facility] [place], [place], [address] Observed: 07/13/2017 Status: F Source: [place] CULTURE, BLOOD (WB) 10:30 PM [facility] [place] BC No growth in 5 days. Performed By: #### M200.1000 #### [facility] [address] [place], [address] Observed: 07/13/2017 Status: F Source: [place] INFLUENZA A+B (RAPID 10:28 PM [facility] [place] REPOSITORY Has pt arrived? Y FLU A/B Rapid Negative test results should be confirmed by culture. Order Rapid Viral Culture for Influenzae A+B ([id number]) if clinically indicated. Influenza Ag, Direct Presumptive NEGATIVE for Influenza A/B Antigen (See Note) Performed By: #### M101.0101 #### [facility] [address] [place], [place], [address] CBC W/DIFF, AUTOMATED Collected: 07/13/2017 Status: F Source: [place] 10:10 PM [facility] [place] TYPE CODE TESTS RESULT OUT OF [...] LYMPHOPENIA NOTED Performed By: #### L100.0100 #### [facility] [address] [place], [address] PROTHROMBIN TIME W/INR Collected: 07/13/2017 Status: F Source: [place] 10:10 PM [facility] [place] TYPE CODE TESTS RESULT OUT OF RANGE REFERENCE UNITS LAB L300.4150 11.7-14.9 SECONDS Normal PROTIME 14.1 LAB L300.4200 Normal INR 1.1 Performed By: #### L300.3900, L300.4310 #### [facility] [address] [place], [address] PARTIAL THROMBOPLAST Collected: 07/13/2017 Status: F Source: [place] TIME 10:10 PM [facility] [place] TYPE CODE TESTS RESULT OUT OF RANGE REFERENCE UNITS LAB L300.4310 24.1-36.2 Seconds Normal PTT 29.0 Performed By: #### L300.3900, L300.4310 #### [facility] [address] [facility] [place], [address] COMPREHENSIVE METABOLIC Collected: 07/13/2017 Status: F Source: [place] PROFIL 10:10 PM [facility] [place] TYPE CODE TESTS RESULT OUT OF [...] GAP 11 Performed By: #### L500.4050 #### [facility] [address] [place], [place], [address] LACTIC ACID Collected: 07/13/2017 Status: F Source: [place] 10:10 PM [facility] [place] Order Comment: Yes/No query for Sepsis Lactate Rule Y TYPE CODE TESTS RESULT OUT OF RANGE REFERENCE UNITS LAB L503.6005 0.4-2.0 mmol/L Normal LACTIC ACID 1.1 Performed By: #### L503.6005 #### [facility] [address] [place], [address] MAGNESIUM Collected: 07/13/2017 Status: F Source: [place] 10:10 PM [facility] [place] TYPE CODE TESTS RESULT OUT OF RANGE REFERENCE UNITS LAB L501.5200 1.6-2.6 mg/dL Low MG 1.4 Result Comment: Please note revised Magnesium reference range effective 2017. Performed By: #### L501.5200 #### [facility] [address] [place], [address] Observed: 07/13/2017 Status: F Source: [place] CULTURE, BLOOD (WB) 10:10 PM [facility] [place] BC No growth in 5 days. Performed By: #### M200.1000 #### [facility] [address] [place], [address] CHEST 1 VIEW Observed: 07/13/2017 Status: F Source: [place] (PORTABLE) 9:48 PM [facility] REPOSITORY [facility] Imaging Services [address] [place] [address] Chest 1 View (Portable) MR#: [id number] Acct: [id number] Name: SKYLER PINZON Rep #: [id number] : 1965 M 52 From: Hans Wong MD PCP: Mike Bella MD Status: REG ER Study: Chest 1 View (Portable) Date of Exam: 07/13/17 Exam# [id number] Ordering Dr: Claus Lisa MD STUDY: X-RAY [...] , CC: Claus Lisa; Mike Bella MD Pre School Manager: Signed KIDNEY AND BLADDER Observed: 07/12/2017 Status: F Source: [place] 10:49 AM [facility] [place] [facility] Imaging Services [address] [place] [address] Kidney and Bladder MR#: [id number] Acct: [id number] Name: SKYLER PINZON Rep #: [id number] : 1965 M 52 From: Hans Wong MD PCP: Mike Bella MD Status: REG CLI Study: Kidney and Bladder Date of Exam: 07/12/17 Exam# [id number] Ordering Dr: Litzy Kern TACTICAL/MOBILE WATCH OFFICER-C STUDY: RENAL ULTRASOUND - COMPLETE REASON FOR [...] calculi. US/Kidney and Bladder IMPRESSION: Atrophic right kaibab kidney. There is moderate hydronephrosis of the right kidney. There is a diffusely thickened wall of the distended bladder. Echogenic debris is seen within the dependent aspect of the urinary bladder. Unremarkable right renal transplant kidney. Electronically Signed: Hans Wong MD at 17:37 EDT , Service support , CC: Mike Bella MD; Litzy Kern NP Pre School Manager: Signed CBC-COMPLETE BLOOD CNT Collected: 06/04/2017 Status: F Source: [place] NO DIFF 8:17 AM [facility] [place] TYPE CODE TESTS RESULT OUT OF [...] MPV 9.8 Performed By: #### L100.0500 #### [facility] [address] [address] [place], [place], [address] RENAL PROFILE Collected: 06/04/2017 Status: F Source: [place] 8:17 AM [facility] [place] Order Comment: Comments: RED TOP SERUM,ROOM [...] CO2 22.0 Performed By: #### L500.3600 #### [facility] [address] [place], [address] MISCELLANEOUS LAB Collected: 06/04/2017 Status: F Source: [place] PROCEDURE 8:17 AM [facility] [place] Order Comment: Comments: RED TOP SERUM,ROOM TEMP Test(s) Ordered: [id number] TYPE CODE TESTS RESULT OUT OF RANGE REFERENCE UNITS LAB L801.1541 Normal [facility] LAB TEST Result Comment: TEST RESULT LIMITS Mycophenolic Acid and Metabo. Mycophenolic Acid 2.3 ug/mL 1.0 - 3.5 Mycophenolic Acid Glucuronide 28 ug/mL 15 - 125 TESTING PERFORMED AT [facility]. ORIGINAL REPORT ON FILE IN LAB CONTAINS ADDITIONAL TEST SITE INFORMATION. Performed By: #### L801.1541 #### [facility] [address] [place], [address] ALLERGIES ALLERGIES DATE TYPE / CODE NAME / CODE REACTION SEVERITY SOURCE 12/22/2017 Drug No Known Unknown [facility] Allergy/4160 Allergies/F00 Hospital 85361(SNOMED 2817806(RXNOR Repository CT) M) ENCOUNTERS ENCOUNTERS ADMIT/DISCHARGE ACCOUNT ADMITTING ENCOUNTER LOCATION SOURCE NUMBER CLASS 05/18/2018 [id number] [facility] Hospital ing:OLS.AVEB Repository 05/11/2018 [id number] [facility] Hospital ing:OLS.AVED Repository 05/04/2018 [id number] [facility] Hospital ing:OLS.AVED Repository 05/03/2018 [id number] [facility] Hospital ing:LAB Repository 04/27/2018 [id number] [facility] Hospital ing:OLS.AVED Repository 04/20/2018 [id number] [facility] Repository 04/14/2018 [id number] [facility] Repository 04/13/2018 [id number] [facility] ing:OLS.AVED Repository 04/11/2018/04/11/20 [id number] ing:LAB Repository 04/06/2018 [id number] [facility] ing:OLS.AVED Repository 03/30/2018 [id number] Ambulatory [facility] Hospital ing:OLS.AVED Repository 03/23/2018 [id number] Ambulatory [facility] Hospital ing:OLS.AVED Repository 03/16/2018 [id number] [facility] ing:OLS.AVED Repository 03/15/2018 [id number] [facility] Repository 03/09/2018 [id number] [facility] ing:OLS.AVED Repository 03/02/2018 [id number] Ambulatory [facility] Hospital ing:OLS.AVED Repository 02/23/2018/02/25/20 [id number] Emergency [address] Hospital ing:ED Repository 02/23/2018 [id number] Ambulatory [facility] ing:OLS.AVED Repository 02/16/2018 [id number] Ambulatory [facility] ing:OLS.AVED Repository 02/09/2018 [id number] Ambulatory [facility] ing:OLS.AVED Repository 02/02/2018 [id number] Ambulatory [facility] ing:OLS.AVED Repository 01/16/2018/02/02/20 [id number] [place] Mikey Harrison Inpatient [place] [address] Encounter [facility] ing:TCURoom: Repository [id number]: 1 01/11/2018/01/17/20 [id number] [place], Jesica Inpatient [place] 18 Encounter [facility] ing:YE4Xnjw: Repository ZR720Rkv: 1 01/11/2018 [id number] , Ambulatory BMSBuilding:B [place] Repository 01/11/2018 [id number] , Ambulatory BMSBuilding:B [place].[facility] Repository 01/11/2018 [id number] , Ambulatory BMSBuilding:B [place].[facility] Repository 01/11/2018 [id number] , Ambulatory BMSBuilding:B [place].[facility] Repository 01/11/2018 [id number] , Ambulatory BMSBuilding:B [place] Repository 01/11/2018 [id number] , Ambulatory BMSBuilding:B [place].[facility] Repository 12/22/2017/12/23/19 [id number] Ambulatory BMSBuilding:B [place] 18 MS.[facility] Repository 12/20/2017/12/21/19 [id number] Ambulatory [address] ing:LAB Repository 12/11/2017 [id number] [facility] Repository 12/09/2017/12/10/19 [id number] Ambulatory BMSBuilding:B [place] 18 MS.[facility] Hospital Repository 12/07/2017/12/08/19 [id number] Emergency [place] Hospital ing:ED Repository 12/02/2017 [id number] Ambulatory [facility] Hospital Repository 11/23/[id number] Maddie Ambulatory [facility] ER Repository 11/19/2017/11/20/19 [id number] Ambulatory [place] Hospital ing:LAB Repository 10/30/2017 [id number] Ambulatory [facility] Hospital ing:RAD.FUTUR Repository E 10/21/2017/10/22/19 [id number] Ambulatory [place] Hospital ing:LAB Repository 10/20/2017 [id number] [facility]AD Repository 09/28/2017/09/30/19 [id number] Emergency [place] Hospital ing:ED Repository 09/23/2017 [id number] [facility] Repository 09/20/2017/09/21/19 [id number] Ambulatory [place] Hospital ing:LAB Repository 09/11/2017 [id number] Ambulatory BMSBuilding:B [place] MS.WIP [facility] Hospital Repository 09/11/2017/09/12/19 [id number] Jesica Russo Inpatient [place] 18 [facility] Hospital ing:LZ4Hncu: Repository [id number]: 1 09/11/2017 [id number] White, Jesica Ambulatory BMSBuilding:B [place] MS.CF.PMW [facility] Hospital Repository 09/09/2017 [id number] [facility]MTRAD Repository 08/20/2017/08/21/19 [id number] Ambulatory [place] 18 [facility] ing:LAB Repository 08/18/2017/08/19/19 [id number] Ari, Ambulatory [address] ing:SE7Qxmm: Repository TO704Yjg: 1 08/18/2017 [id number] Ari, Ambulatory BMSBuilding:Frederic Durán MS.[facility] Repository 08/04/2017/01/19/20 [id number] Ambulatory [address] ing:CCN Repository 07/28/2017/07/29/19 [id number] Emergency [address] ing:ED Repository 07/22/2017/07/23/19 [id number] Ambulatory [address] ing:LAB Repository 07/21/2017/07/22/19 [id number] Ambrosio Solis Ambulatory [address] ing:PCURoom: Repository [id number]: 1 07/21/2017 [id number] Ambrosio Solis Ambulatory BMSBuilding:B [place] LEAL.[facility] Repository 07/13/2017/07/19/19 [id number] White, Jesica Inpatient [address] ing:EZ9Cxjz: Repository TI183Lau: 1 07/13/2017 [id number] White, Jesica Ambulatory BMSBuilding:B [place].[facility] Repository 07/13/2017 [id number] [place], Jseica Ambulatory BMSBuilding:B [place].[facility] Repository 07/13/2017 [id number] White, Jesica Ambulatory BMSBuilding:B [place].[facility] Repository 07/13/2017 [id number] White, Jesica Ambulatory BMSBuilding:B [place].[facility] Repository 07/13/2017 [id number] White, Jesica Ambulatory BMSBuilding:B [place].[facility] Repository 07/13/2017 [id number] White, Jesica Ambulatory BMSBuilding:B [place] LEAL.[facility] Repository 07/12/2017 [id number] Ambulatory [facility] ing:US Repository 07/06/[id number] Jeanne Ambulatory [facility] Repository 06/18/2017/06/18/19 [id number] Ambulatory [place] 18 [facility] ing:LAB Repository PAYERS PAYERS ENCOUNTER GUARANTOR PAYER SUBSCRIBER SOURCE 05/18/2018 [place] L [id number] Primary Insurance:SELF NOT GIVENUNK [place] [address] PAY INSURANCE[address] Number: Effective Hospital [id number]: (330) Date:2018-05-18 Repository [phone] (HP) 05/11/2018 SKYLER L [id number] Primary SKYLER L STYPEDOB: [place] [address] Insurance:MEDICARE [id number] [address] PART A BPolicy Number: Hospital [id number]: (330) [id number] Repository [phone] (HP) Date:2018-05-11 05/11/2018 Secondary SKYLER L STYPEDOB: [place] Insurance:CIGNAPolicy [id number] Community Number: Hospital [id number] Repository Date:2927-37-76VV [address], [place] [address]SS: 05/11/2018 Tertiary NOT GIVENUNK [place] Insurance:SELF PAY [facility]: Effective Repository Date:2018-05-11 05/04/2018 SKYLER L [id number] Primary SKYLER L STYPEDOB: [place] [address] Insurance:MEDICARE [id number] [address] PART A BPolicy Number: Hospital [id number]: (330) [id number] Repository [phone] (HP) Date:2018-05-04 05/04/2018 Secondary SKYLER L STYPEDOB: [place] Insurance:CIGNAPolicy [id number] Community Number: Hospital [id number] Repository Date:0208-28-23WW [address], [place] [address]WZ: 05/04/2018 Tertiary NOT GIVENUNK [place] Insurance:SELF PAY [facility] Number: Effective Repository Date:2018-05-04 05/03/2018 SKYLER L [id number] Primary SKYLER L STYPEDOB: [place] [address] Insurance:MEDICARE [id number] [address] PART A BPolicy Number: Hospital [id number]: 330 [id number] Repository [phone] (HP) Date:2017-06-04 05/03/2018 Secondary SKYLER L STYPEDOB: [place] Insurance:CIGNAPolicy [id number] Community Number: Hospital [id number] Repository Date:6424-14-93EB [address]V[address], [place] [address]JT: 05/03/2018 Tertiary NOT GIVENUNK [place] Insurance:SELF PAY [facility] Number: Effective Repository Date:2018-05-02 04/27/2018 SKYLER L [id number] Primary SKYLER L STYPEDOB: [place] [address] Insurance:MEDICARE [id number] [address] PART A BPolicy Number: Hospital [id number]: 330 [id number] Repository [phone] (HP) Date:2018-04-27 04/27/2018 Secondary SKYLER L STYPEDOB: [place] Insurance:CIGNAPolicy [id number] Community Number: Hospital [id number] Repository Date:3795-58-34IH [address]CE[place], [place] [address]AZ: 04/27/2018 Tertiary NOT GIVENUNK [place] Insurance:SELF PAY Community [facility] Number: Effective Repository Date:2018-04-27 04/20/2018 SKYLER L [id number] Primary SKYLER L STYPEDOB: [place] [address] Insurance:MEDICARE [id number] [address] PART A BPolicy Number: Hospital [id number]: 330 [id number] Repository [phone] (HP) Date:2018-04-20 04/20/2018 Secondary SKYLER L STYPEDOB: [place] Insurance:CIGNAPolicy [id number] Community Number: Hospital [id number] Repository Date:5932-94-96IY [address], [place] [address]MB: 04/20/2018 Tertiary NOT GIVENUNK [place] Insurance:SELF PAY [facility] Number: Effective Repository Date:2018-04-20 04/14/2018 SKYLER L STYPEDOB: Primary SKYLER L STYPEDOB: [place] Insurance:[facility] [id number] [place] [address] PlanPolicy Number: 3 [facility] Repository [address] # [id number], [place] Date:5751-81-61Coni [address] [place] [phone]: (562) Name:[facility] [address]Wzr: (HP) [id number], [place] [phone] (HP) [address]UT: 04/14/2018 Secondary SKYLER L STYPEDOB: University Insurance:[facility] [id number] [place], [place] [address] Repository Number: [address] # [id number] [address], [place] Date:Plan Name:[place] [address]Tel: () 04/14/2018 Tertiary SKYLER L STYPEDOB: University Insurance:MedicarePoli [id number] Hospitals cy Number: 3 [facility] Repository [id number] [address] # Date:Plan Name:Candis Prieto [address], [place] [address]Fis: () 04/14/2018 Tertiary SKYLER L STYPEDOB: University Insurance:MedicarePoli [id number] Hospitals cy Number: 3 [facility] Repository [id number] APT. # Date:Plan Name:Candis De La Garza [address] [place] [address] 99760Uhn: (HP) 04/13/2018 SKYLER L [id number] Primary [facility] L [facility]ARE [id number] Community [address] PART A BPolicy Number: [facility] [id number]: (330 [id number] Repository [phone] (HP) Date:2018-04-13 04/13/2018 Secondary SKYLER L STYPEDOB: [place] Insurance:CIGNAPolicy [id number] Community Number: Hospital [id number] Repository Date:9264-60-54UX [address]RBXBODWJNUO, [place] [address]LH: 04/13/2018 Tertiary NOT GIVENUNK [place] Insurance:SELF PAY Community [facility] Effective Repository Date:2018-04-13 04/11/2018 SKYLER L [id number] Primary SKYLER L STYPEDOB: [place] [address] Insurance:MEDICARE [id number] [address] PART A BPolicy Number: Hospital [id number]: 330 [id number] Repository [phone] () Date:2017-06-04 04/11/2018 Secondary SKYLER L STYPEDOB: [place] Insurance:CIGNAPolicy [id number] Community Number: Hospital [id number] Repository Date:1626-35-98VS [address]HTHVGJXMWIO, [place] [address]XP: 04/11/2018 Tertiary NOT GIVENUNK [place] Insurance:SELF PAY Community [facility] Number: Effective Repository Date:2018-01-04 04/06/2018 SKYLER L [id number] Primary SKYLER L STYPEDOB: [place] [address] Insurance:MEDICARE [id number] [address] PART A BPolicy Number: Hospital [id number]: 330 [id number] Repository [phone] () Date:2018-04-06 04/06/2018 Secondary SKYLER L STYPEDOB: [place] Insurance:CIGNAPolicy [id number] Community Number: Hospital [id number] Repository Date:7588-82-70WZ [address]JHUETNHSTNJ, [place] [address]AE: 04/06/2018 Tertiary NOT GIVENUNK [place] Insurance:SELF PAY Community [facility] Number: Effective Repository Date:2018-04-06 03/30/2018 SKYLER L [id number] Primary SKYLER L STYPEDOB: [place] [address] Insurance:MEDICARE [id number] [address] PART A BPolicy Number: Hospital [id number]: (800) [id number] Repository 262 (HP) Date:2018-03-30 03/30/2018 Secondary SKYLER L STYPEDOB: [place] Insurance:CIGNAPolicy [id number] Community Number: Hospital [id number] Repository Date:0627-22-83WB [address]BOBQSQABMYG, [place] [address]WH: 03/30/2018 Tertiary NOT GIVENUNK [place] Insurance:SELF PAY [facility] Number: Effective Repository Date:2018-03-30 03/23/2018 SKYLER L [id number] Primary SKYLER L STYPEDOB: [place] [address] Insurance:MEDICARE [id number] [address] PART A BPolicy Number: Hospital [address]Cmu: (536) [id number] Repository (HP) Date:2018-03-23 03/23/2018 Secondary SKYLER L STYPEDOB: [place] Insurance:CIGNAPolicy [id number] Community Number: Hospital [id number] Repository Date:1216-03-47EW [address]EOYMEBEWJON, [place] [address]OG: 03/23/2018 Tertiary NOT GIVENUNK [place] Insurance:SELF PAY Community [facility] Number: Effective Repository Date:2018-03-23 03/16/2018 Skyler L [id number] Primary Insurance:SELF NOT GIVENUNK [place] [facility] PAY INSURANCE[address] Number: Effective Hospital [id number]: (330) Date:2018-03-16 Repository 262 (HP) 03/15/2018 SKYLER L STYPEDOB: Primary SKYLER L STYPEDOB: University [id number] Insurance:MedicarePoli [id number] [place] [address] cy Number: 3 [facility] Repository [address]T. # [id number] [address], [place] Date:Plan Name:Candis Prieto [address], [place] [address]Fgz: [phone] 22691Tel: (HP) [phone] (HP) 03/15/2018 Secondary SKYLER L STYPEDOB: University Insurance:MedicarePoli [id number] Hospitals cy Number: 3 [facility] Repository [id number] [address]T. # Date:Plan Name:Candis De La Garza [address], [place] [address]Xhv: (HP) 03/15/2018 Tertiary SKYLER L STYPEDOB: University Insurance:[facility] [id number] Hospitals PlanPolicy Number: [address] [place] [address] Repository [id number] APT. # Date:0436-76-05Hkcu [facility] [place] Name:[facility] [address]Vkx: [phone], [place] [phone] () [address]XR: 03/15/2018 Tertiary SKYLER L STYPEDOB: University Insurance:[facility] [id number] Hospitals HealthcarePolicy [address] [place] [address] Repository Number: APT. # [id number] [place], [place] Date:Plan Name:[facility] [address]Nov: (HP) 03/09/2018 Skyler L [id number] Primary Insurance:SELF NOT GIVENUNK [facility] PAY [address], [place] Number: Effective Hospital [id number]: (330) Date:2018-03-09 Repository [phone] (HP) 03/02/2018 SKYLER L [id number] Primary Insurance:SELF NOT GIVENUNK [facility] [address], [place] Number: Effective Hospital [id number]: (330) Date:2018-03-02 Repository [phone] (HP) 02/23/2018 SKYLER L [id number] Primary SKYLER L STYPEDOB: [facility] Insurance:MEDICARE [id number] [place] PART A BPolicy Number: Hospital 10222Zrc: (475) [id number] Repository 262 (HP) Date:2018-02-23 02/23/2018 Secondary SKYLER L STYPEDOB: [place] Insurance:CIGNAPolicy [id number] Community Number: Hospital [id number] Repository Date:1989-96-84EE [address]ZXNKJTJFCIHHESSTON, [place] [address]EN: 02/23/2018 Tertiary NOT GIVENUNK [place] Insurance:SELF PAY [facility] Hospital Number: Effective Repository Date:2018-02-23 02/23/2018 SKYLER L [id number] Primary Insurance:SELF NOT GIVENUNK [place] [address] PAY [address], [place] Number: Effective Hospital [phone]: (330) Date:2018-02-23 Repository 8 () 02/16/2018 SKYLER L [id number] Primary Insurance:SELF NOT GIVENUNK [place] [address] PAY [address] [place] Number: Effective Hospital [phone]: (330) Date:2018-02-16 Repository () 02/09/2018 SKYLER L [id number] Primary Insurance:SELF NOT GIVENUNK [place] [address] PAY [address] [place] Number: Effective Hospital [id number]: (330) Date:2018-02-09 Repository (HP) 02/02/2018 SKYLER L [id number] Primary Insurance:SELF NOT GIVENUNK [place] [address] PAY [address], [place] Number: Effective Hospital [id number]: (330) Date:2018-02-02 Repository 262 (HP) 01/16/2018 SKYLER L [id number] Primary SKYLER L STYPEDOB: [place] [address] Insurance:MEDICARE [id number] [place] PART A BPolicy Number: Hospital [id number]: (901) [id number] Repository 9 () Date:2018-01-16 01/16/2018 Secondary SKYLER L STYPEDOB: [place] Insurance:CIGNAPolicy [id number] Community Number: Hospital [id number] Repository Date:2854-58-95DL [address]BKHYSENTGCY, [place] [address]MU: 01/16/2018 Tertiary NOT GIVENUNK [place] Insurance:SELF PAY Community [facility] Number: Effective Repository Date:2018-01-16 01/11/2018 SKYLER L [id number] Primary SKYLER L STYPEDOB: [place] [address] Insurance:MEDICARE [id number] PART A BPolicy Number: Hospital [id number]: (191) [id number] Repository [phone] (HP) Date:2018-01-11 01/11/2018 Secondary SKYLER L STYPEDOB: [place] Insurance:CIGNAPolicy [id number] Community Number: Hospital [id number] Repository Date:1322-55-15UI [address]TXKYGULSALO, [place] [address]AZ: 01/11/2018 Tertiary NOT GIVENUNK [place] Insurance:SELF PAY Community [facility] Number: Effective Repository Date:2018-01-11 01/11/2018 SKYLER L [id number] Primary SKYLER L STYPEDOB: [place] [address] Insurance:MEDICARE [id number] PART A BPolicy Number: Hospital 57[address]Mpl: (204) [id number] Repository [phone] (HP) Date:2018-01-11 01/11/2018 Secondary SKYLER L STYPEDOB: [place] Insurance:CIGNAPolicy [id number] Community Number: Hospital [id number] Repository Date:6812-42-28VO [address]WGGNSHHKJKH, [place] [address]YR: 01/11/2018 Tertiary NOT GIVENUNK [place] Insurance:SELF PAY Community [facility] Number: Effective Repository Date:2018-01-11 01/11/2018 SKYELR L [id number] Primary SKYLER L STYPEDOB: [place] [address] Insurance:MEDICARE [id number] PART A BPolicy Number: Hospital [id number]: [phone]) [id number] Repository [phone] () Date:2018-01-11 01/11/2018 Secondary SKYLER L STYPEDOB: [place] Insurance:CIGNAPolicy [id number] Community Number: Hospital [id number] Repository Date:4846-46-87YF [address]PMPNOSACKCG, [place] [address]NP: 01/11/2018 Tertiary NOT GIVENUNK [place] Insurance:SELF PAY Community [facility] Number: Effective Repository Date:2018-01-11 01/11/2018 SKYLER L [id number] Primary SKYLER L STYPEDOB: [place] [address] Insurance:MEDICARE [id number] [address] PART A BPolicy Number: Hospital [address]Afr: (508) [id number] Repository [phone] () Date:2018-01-11 01/11/2018 Secondary SKYLER L STYPEDOB: [place] Insurance:CIGNAPolicy [id number] Community Number: [facility] [id number] Repository Date:0759-51-79UU [address]XZCMDXZCJWD, [place] [address]WG: 01/11/2018 Tertiary NOT GIVENUNK [place] Insurance:SELF PAY Community [facility] Number: Effective Repository Date:2018-01-11 01/11/2018 SKYLER L [id number] Primary SKYLER L STYPEDOB: [place] [address] Insurance:MEDICARE [id number] [address] PART A BPolicy Number: Hospital [id number]: [phone]) [id number] Repository [phone] () Date:2018-01-11 01/11/2018 Secondary SKYLER L STYPEDOB: [place] Insurance:CIGNAPolicy [id number] Community Number: [facility] [id number] Repository Date:2346-05-65HN [address]GMDEGOMVLUY, [place] [address]PL: 01/11/2018 Tertiary NOT GIVENUNK [place] Insurance:SELF PAY Community [facility] Number: Effective Repository Date:2018-01-11 01/11/2018 SKYLER L [id number] Primary SKYLER L STYPEDOB: [place] [address] Insurance:MEDICARE [id number] Community [address] [place] [address] PART A BPolicy Number: Hospital 84238Fpx: 330 [id number] Repository 262 () Date:2018-01-11 01/11/2018 Secondary SKYLER L STYPEDOB: [place] Insurance:CIGNAPolicy [id number] Community Number: Hospital [id number] Repository Date:9015-99-97OJ [address]FVBSNQRGLIF, [place] [address]WG: 01/11/2018 Tertiary NOT GIVENUNK [place] Insurance:SELF PAY Community [facility] Number: Effective Repository Date:2018-01-11 01/11/2018 SKYLER L [id number] Primary SKYLER L STYPEDOB: [place] [address] Insurance:MEDICARE [id number] [address] PART A BPolicy Number: Hospital [id number]: 330 [id number] Repository () Date:2018-01-11 01/11/2018 Secondary SKYLER L STYPEDOB: [place] Insurance:CIGNAPolicy [id number] Community Number: Hospital [id number] Repository Date:3524-46-87FS [address]ZNNZZMBRLWU, [place] [address]LY: 01/11/2018 Tertiary NOT GIVENUNK [place] Insurance:SELF PAY Community [facility] Number: Effective Repository Date:2018-01-11 12/22/2017 SKYLER L [id number] Primary SKYLER L STYPEDOB: [place] [address] Insurance:MEDICARE [id number] [address] PART A BPolicy Number: Hospital [id number]: 330 [id number] Repository 262 () Date:2017-12-09 12/22/2017 Secondary SKYLER L STYPEDOB: [place] Insurance:CIGNAPolicy [id number] Community Number: Hospital [id number] Repository Date:7582-29-69SH [address]GSCKTMLVKNY, [place] [address]KI: 12/22/2017 Tertiary NOT GIVENUNK [place] Insurance:SELF PAY Community [facility] Number: Effective Repository Date:2017-12-14 12/20/2017 SKYLER L [id number] Primary SKYLER L STYPEDOB: [place] [address] Insurance:MEDICARE [id number] [address] PART A BPolicy Number: Hospital [id number]: ([phone]) [id number] Repository [phone] () Date:2017-06-04 12/20/2017 Secondary SKYLER L STYPEDOB: [place] Insurance:CIGNAPolicy [id number] Community Number: [facility] [id number] Repository Date:7387-30-97SW [address]FEODYSTXHFL, [place] [address]PZ: 12/20/2017 Tertiary NOT GIVENUNK [place] Insurance:SELF PAY Community [facility] Number: Effective Repository Date:2017-12-02 12/11/2017 Skyler L [id number] Primary Skyler L StypeDOB: [place] [address] Insurance:MEDICARE [id number] [address] PART A BPolicy Number: Hospital [id number]: (126) [id number] Repository [phone] () Date:2017-12-10 12/11/2017 Secondary Skyler L StypeDOB: [place] Insurance:CIGNAPolicy [id number] Community Number: [facility] [id number] Repository Date:6639-78-96VZ [place]336061755BXMIDYPJNQT, [place] [address]PL: 12/11/2017 Tertiary NOT GIVENUNK [place] Insurance:SELF PAY Community [facility] Number: Effective Repository Date:2017-12-10 12/09/2017 SKYLER L [id number] Primary SKYLER L STYPEDOB: [place] [address] Insurance:MEDICARE [id number] [address] PART A BPolicy Number: Hospital 74177Vye: (131) [id number] Repository [phone] () Date:2017-11-05 12/09/2017 Secondary SKYLER L STYPEDOB: [place] Insurance:CIGNAPolicy [id number] Community Number: Hospital [id number] Repository Date:5825-72-22GF [address]KVSQFOUNJUF, [place] [address]US: 12/09/2017 Tertiary NOT GIVENUNK [place] Insurance:SELF PAY Community [facility] Number: Effective Repository Date:2017-12-02 12/07/2017 SKYLER L [id number] Primary SKYLER L STYPEDOB: [place] [address] Insurance:MEDICARE [id number] [address] PART A BPolicy Number: Hospital [id number]: (741) [id number] Repository [phone] () Date:2017-12-07 12/07/2017 Secondary SKYLER L STYPEDOB: [place] Insurance:CIGNAPolicy [id number] Community Number: Hospital [id number] Repository Date:8051-09-66EL [address]YSEWTYHNXAF, [place] [address]EV: 12/07/2017 Tertiary NOT GIVENUNK [place] Insurance:SELF PAY Community [facility] Number: Effective Repository Date:2017-12-07 12/02/2017 SKYLER L [id number] Primary SKYLER L STYPEDOB: [place] [address] Insurance:MEDICARE [id number] [address] PART A BPolicy Number: Hospital 07953Pda: ([phone]) [id number] Repository [phone] () Date:2017-12-02 12/02/2017 Secondary SKYLER L STYPEDOB: [place] Insurance:CIGNAPolicy [id number] Community Number: Hospital [id number] Repository Date:2143-07-15WZ [address]PXRGEALNBDE, [place] [address]HO: 12/02/2017 Tertiary NOT GIVENUNK [place] Insurance:SELF PAY Community [facility]: Effective Repository Date:2017-12-02 11/23/2017 SKYLER L STYPEDOB: Primary SKYLER L STYPEDOB: University Insurance:MedicarePoli [id number] [place] [address] cy Number: [address] [place] [address] Repository [address] # [id number] APT. # [place], [place] Date:Plan Name:Candis Prieto [address] [place] [address]Nsr: [phone]: (HP) [phone] (HP) 11/23/2017 Secondary SKYLER L STYPEDOB: University Insurance:MedicarePoli [id number] Hospitals cy Number: 3 [facility] Repository [id number] APT. # Date:Plan Name:Candis De La Garza [address] [place] [address]Man: (HP) 11/23/2017 Tertiary SKYLER L STYPEDOB: [place] Insurance:[facility] [id number] Hospitals PlanPolicy Number: 3 [facility] Repository [id number] APT. # Date:8236-25-82Niem[address] Name:[facility] [address]Vmy: [phone] 523713Inefgzmuucc, [place] [phone] (HP) [address]FL: 11/23/2017 Tertiary SKYLER L STYPEDOB: [place] Insurance:[facility] [id number] [place] [address] Repository Number: APT. # [id number] [place], [place] Date:Plan Name:[facility] [address]Pka: () 11/19/2017 SKYLER L [id number] Primary SKYLER L STYPEDOB: [place] [facility] Insurance:MEDICARE [id number] Community [address], [place] PART A BPolicy Number: Hospital 34[address]Hkv: ([id number]) [id number] Repository [phone] () Date:2017-06-04 11/19/2017 Secondary SKYLER L STYPEDOB: [place] Insurance:[facility] [id number] Community Number: Hospital [id number] Repository Date:9846-62-62XM [address]KDZEIPRUJEJ, [place] [address]VN: 11/19/2017 Tertiary NOT GIVENUNK [place] Insurance:SELF PAY Community [facility] Number: Effective Repository Date:2017-10-29 10/30/2017 SKYLER L [id number] Primary SKYLER L STYPEDOB: [place] [address] Insurance:MEDICARE [id number] [address] PART A BPolicy Number: Hospital 359[address]Mow: ([phone]) [id number] Repository [phone] () Date:2017-09-13 10/30/2017 Secondary SKYLER L STYPEDOB: [place] Insurance:CIGNAPolicy [id number] Community Number: [facility] [id number] Repository Date:7375-50-77FT [address]WNTSEXXDUMY [place] [address]SP: 10/30/2017 Tertiary NOT GIVENUNK [place] Insurance:SELF PAY Community [facility] Number: Effective Repository Date:2017-09-13 10/21/2017 SKYLER L [id number] Primary SKYLER L STYPEDOB: [place] [address] Insurance:MEDICARE [id number] [address] PART A BPolicy Number: Hospital [address]Ifj: (428) [id number] Repository [phone] () Date:2017-06-04 10/21/2017 Secondary SKYLER L STYPEDOB: [place] Insurance:CIGNAPolicy [id number] Community Number: [facility] [id number] Repository Date:6220-31-26TG [address]PBTLXIWUYEI, [place] [address]NW: 10/21/2017 Tertiary NOT GIVENUNK [place] Insurance:SELF PAY Community [facility] Number: Effective Repository Date:2017-09-30 10/20/2017 SKYLER L [id number] Primary SKYLER L STYPEDOB: [place] [address] Insurance:MEDICARE [id number] [address] PART A BPolicy Number: Hospital [id number]: ([phone]) [id number] Repository [phone] () Date:2017-10-20 10/20/2017 Secondary SKYLER L STYPEDOB: [place] Insurance:CIGNAPolicy [id number] Community Number: Hospital [id number] Repository Date:1152-61-10JP [address]NHIOXAXBDOJJINA [address]MK: 10/20/2017 Tertiary NOT GIVENUNK [place] Insurance:SELF PAY Community [facility] Number: Effective Repository Date:2017-10-20 09/28/2017 SKYLER L [id number] Primary SKYLER L STYPEDOB: [place] [address] Insurance:MEDICARE [id number] [address] PART A BPolicy Number: Hospital [id number]: [id number] Repository [phone] Date:2017-09-28 () 09/28/2017 Secondary SKYLER L STYPEDOB: [place] Insurance:CIGNAPolicy [id number] Community Number: Hospital [id number] Repository Date:8562-58-58BH [address]INAUMDDCHTV, [place] [address]QZ: 09/28/2017 Tertiary NOT GIVENUNK [place] Insurance:SELF PAY Community [facility] Number: Effective Repository Date:2017-09-28 09/23/2017 SKYLER L [id number] Primary SKYLER L STYPEDOB: [place] [address] Insurance:MEDICARE [id number] [address] PART A BPolicy Number: Hospital [address]792Svv: [id number] Repository [phone] Date:2017-09-23 () 09/23/2017 Secondary SKYLER L STYPEDOB: [place] Insurance:CIGNAPolicy [id number] Community Number: Hospital [id number] Repository Date:8253-23-63RK [address]ZXBNJMSRDUB, [place] [address]YX: 09/23/2017 Tertiary NOT GIVENUNK [place] Insurance:SELF PAY Community [facility] Number: Effective Repository Date:2017-09-23 09/20/2017 SKYLER L [id number] Primary SKYLER L STYPEDOB: [place] [address] Insurance:MEDICARE [id number] PART A BPolicy Number: Hospital [address]Vwk: [id number] Repository [phone] Date:2017-06-04 () 09/20/2017 Secondary SKYLER L STYPEDOB: [place] Insurance:CIGNAPolicy [id number] Community Number: Hospital [id number] Repository Date:7530-24-64BZ [address] [address]LM: 09/20/2017 Tertiary NOT GIVENUNK [place] Insurance:SELF PAY Community [facility] Number: Effective Repository Date:2017-08-31 09/11/2017 SKYLER L [id number] Primary SKYLER L STYPEDOB: [place] [address] Insurance:MEDICARE [id number] PART A BPolicy Number: Hospital [id number]: [id number] Repository [phone] Date:2017-09-10 () 09/11/2017 Secondary SKYLER L STYPEDOB: [place] Insurance:CIGNAPolicy [id number] Community Number: Hospital [id number] Repository Date:3736-62-78BY [address]GKOUQRWIOCV, [place] [address]TT: 09/11/2017 Tertiary NOT GIVENUNK [place] Insurance:SELF PAY Community [facility] Number: Effective Repository Date:2017-09-11 09/11/2017 SKYLER L [id number] Primary SKYLER L STYPEDOB: [place] [address] Insurance:MEDICARE [id number] [address] PART A BPolicy Number: Hospital 07148Hmo: ([phone]) [id number] Repository [phone] () Date:2017-09-10 09/11/2017 Secondary SKYLER L STYPEDOB: [place] Insurance:CIGNAPolicy [id number] Community Number: Hospital [id number] Repository Date:8534-37-83HD [address]RPVJGODDUQK, [place] [address]UB: 09/11/2017 Tertiary NOT GIVENUNK [place] Insurance:SELF PAY Community [facility] Number: Effective Repository Date:2017-09-10 09/11/2017 SKYLER L [id number] Primary SKYLER L STYPEDOB: [place] [address] Insurance:MEDICARE [id number] PART A BPolicy Number: Hospital [id number]: [id number] Repository [phone] Date:2017-09-10 () 09/11/2017 Secondary SKYLER L STYPEDOB: [place] Insurance:CIGNAPolicy [id number] Community Number: Hospital [id number] Repository Date:2256-47-22PV [address]PVPVDQHKFOZ, [place] [address]QU: 09/11/2017 Tertiary NOT GIVENUNK [place] Insurance:SELF PAY Community [facility] Number: Effective Repository Date:2017-09-11 09/09/2017 Skyler L [id number] Primary Skyler L StypeDOB: [place] [address] Insurance:MEDICARE [id number] PART A BPolicy Number: Hospital [address]Yol: [id number] Repository [phone] Date:2017-09-09 () 09/09/2017 Secondary Skyler L StypeDOB: [place] Insurance:CIGNAPolicy [id number] Community Number: Hospital [id number] Repository Date:0557-38-86QT [address]ZVJXPBMSLWP, [place] [address]TQ: 09/09/2017 Tertiary NOT GIVENUNK [place] Insurance:SELF PAY Community [facility] Number: Effective Repository Date:2017-09-09 08/20/2017 Skyler L [id number] Primary Skyler L StypeDOB: [place] [address] Insurance:MEDICARE [id number] PART A BPolicy Number: Hospital [address]Myx: [id number] Repository [phone] Date:2017-06-04 () 08/20/2017 Secondary Skyler L StypeDOB: [place] Insurance:CIGNAPolicy [id number] Community Number: Hospital [id number] Repository Date:[id number], [place] [address]FI: 08/20/2017 Tertiary NOT GIVENUNK [place] Insurance:SELF PAY [facility] Rep[facility] Date:2017-08-02 08/18/2017 SKYLER L [id number] Primary SKYLER L STYPEDOB: [place] [address] Insurance:MEDICARE [id number] PART A BPolicy Number: Hospital [id number]: [id number] Repository [phone] Date:2017-08-17 08/18/2017 Secondary SKYLER L STYPEDOB: [place] Insurance:CIGNAPolicy [id number] Community Number: Hospital [id number] Repository Date:[id number], [place] [address]YF: 08/18/2017 Tertiary NOT GIVENUNK [place] Insurance:SELF PAY [facility] Rep[facility] Date:2017-08-17 08/18/2017 Skyler L [id number] Primary Skyler L StypeDOB: [address] [address] Insurance:MEDICARE [id number] [address] PART A BPolicy Number: Hospital [id number]: [id number] Repository [phone] Date:2017-08-17 () 08/18/2017 Secondary Skyler L StypeDOB: [place] Insurance:CIGNAPolicy [id number] Community Number: Hospital [id number] Repository Date:8061-93-09[address] 074826POBCNKOXQOE, [place] [address]RJ: 08/18/2017 Tertiary NOT GIVENUNK [place] Insurance:SELF PAY [facility] Repository Date:2017-08-18 08/04/2017 Skyler L [id number] Primary Skyler L StypeDOB: [place] [address] Insurance:MEDICARE [id number] [address] PART A BPolicy Number: Hospital [id number]: [id number] Repository [phone] Date:2017-08-04 () 08/04/2017 Secondary Skyler L StypeDOB: [place] Insurance:CIGNAPolicy [id number] Community Number: Hospital [id number] Repository Date:4801-74-65XE [address]TGYQWS[address], [place] [address]XI: 08/04/2017 Tertiary NOT GIVENUNK [place] Insurance:SELF PAY Community [facility] Number: Effective Repository Date:2017-08-04 07/28/2017 Skyler L [id number] Primary Skyler L StypeDOB: [place] [address] Insurance:MEDICARE [id number] [address] PART A BPolicy Number: Hospital [id number]: [id number] Repository [phone] Date:2017-07-28 () 07/28/2017 Secondary Skyler L StypeDOB: [place] Insurance:CIGNAPolicy [id number] Community Number: Hospital [id number] Repository Date:4948-18-87EE [address]ET, [place] [address]FZ: 07/28/2017 Tertiary NOT GIVENUNK [place] Insurance:SELF PAY Community [facility] Effective Repository Date:2017-07-28 07/22/2017 Skyler L [id number] Primary Skyler L StypeDOB: [place] [address] Insurance:MEDICARE [id number] [address] PART A BPolicy Number: Hospital [id number]: [id number] Repository [phone] Date:2017-06-04 () 07/22/2017 Secondary Skyler L StypeDOB: [place] Insurance:CIGNAPolicy [id number] Community Number: Hospital [id number] Repository Date:4696-13-40UW [address]YLLNEZWW[place], [place] [address]CM: 07/22/2017 Tertiary NOT GIVENUNK [place] Insurance:SELF PAY Community [facility] Number: Effective Repository Date:2017-07-02 07/21/2017 Skyler L [id number] Primary Skyler L StypeDOB: [place] [address] Insurance:MEDICARE [id number] PART A BPolicy Number: Hospital [id number]: [id number] Repository [phone] Date:2017-07-20 () 07/21/2017 Secondary Skyler L StypeDOB: [place] Insurance:CIGNAPolicy [id number] Community Number: Hospital [id number] Repository Date:6214-30-90KX [address]XMUBOZYZA, [place] [address]EJ: 07/21/2017 Tertiary NOT GIVENUNK [place] Insurance:SELF PAY Community [facility]: Effective Repository Date:2017-07-20 07/21/2017 Skyler L [id number] Primary Skyler L StypeDOB: [place] [address] Insurance:MEDICARE [id number] PART A BPolicy Number: Hospital [id number]: [id number] Repository [phone] Date:2017-07-20 () 07/21/2017 Secondary Skyler L StypeDOB: [place] Insurance:CIGNAPolicy [id number] Community Number: Hospital [id number] Repository Date:7602-32-31DU [address]WBLWJQSAUGQ, [place] [address]KD: 07/21/2017 Tertiary NOT GIVENUNK [place] Insurance:SELF PAY Community [facility] Number: Effective Repository Date:2017-07-21 07/13/2017 SKYLER L [id number] Primary SKYLER L STYPEDOB: [place] [address] Insurance:MEDICARE [id number] PART A BPolicy Number: Hospital [address]Ahm: [phone] [id number] Repository [phone] Date:2017-07-13 07/13/2017 Secondary SKYLER L STYPEDOB: [place] Insurance:CIGNAPolicy [id number] Community Number: Hospital [id number] Repository Date:8483-40-83WF [address]FVVAWZBJQBD [place] [address]XO: 07/13/2017 Tertiary NOT GIVENUNK [place] Insurance:SELF PAY Community [facility] Effective Rep[facility] Date:2017-07-13 07/13/2017 Skyler L [id number] Primary Skyler L StypeDOB: [place] [address] Insurance:MEDICARE [id number] [address] PART A BPolicy Number: Hospital [id number]: [id number] Repository [phone] Date:2017-07-13 () 07/13/2017 Secondary Skyler L StypeDOB: [place] Insurance:CIGNAPolicy [id number] Community Number: Hospital [id number] Repository Date:3808-03-03MW [address]FOTJLLRXQEO [place] [address]OU: 07/13/2017 Tertiary NOT GIVENUNK [place] Insurance:SELF PAY Community [facility] Number: Effective Repository Date:2017-07-13 07/13/2017 Skyler L [id number] Primary Skyler L StypeDOB: [place] [address] Insurance:MEDICARE [id number] [address] PART A BPolicy Number: Hospital [id number]: [id number] Repository [phone] Date:2017-07-13 () 07/13/2017 Secondary Skyler L StypeDOB: [place] Insurance:CIGNAPolicy [id number] Community Number: Hospital [id number] Repository Date:1704-34-54XM [address]DDFEKBQWIIU [place] [address]KG: 07/13/2017 Tertiary NOT GIVENUNK [place] Insurance:SELF PAY Community [facility] Number: Effective Repository Date:2017-07-13 07/13/2017 Skyler L [id number] Primary Skyler L StypeDOB: [place] [address] Insurance:MEDICARE [id number] [address] PART A BPolicy Number: Hospital [address]Uyk: [id number] Repository [phone] Date:2017-07-13 () 07/13/2017 Secondary Skyler L StypeDOB: [place] Insurance:CIGNAPolicy [id number] Community Number: Hospital [id number] Repository Date:3108-53-77WS [address], [place] [address]UM: 07/13/2017 Tertiary NOT GIVENUNK [place] Insurance:SELF PAY Community [facility] Number: Effective Repository Date:2017-07-13 07/13/2017 Skyler L [id number] Primary Skyler L StypeDOB: [place] [address] Insurance:MEDICARE [id number] [address] PART A BPolicy Number: Hospital [id number]: [id number] Repository [phone] Date:2017-07-13 () 07/13/2017 Secondary Skyler L StypeDOB: [place] Insurance:CIGNAPolicy [id number] Community Number: Hospital [id number] Repository Date:8626-74-55QA [address]GPHRVCIAHJK, [place] [address]LF: 07/13/2017 Tertiary NOT GIVENUNK [place] Insurance:SELF PAY Community [facility] Number: Effective Repository Date:2017-07-13 07/13/2017 Skyler L [id number] Primary Skyler L StypeDOB: [place] [address] Insurance:MEDICARE [id number] [address] PART A BPolicy Number: Hospital [address]Bmh: [id number] Repository [phone] Date:2017-07-13 () 07/13/2017 Secondary Skyler L StypeDOB: [place] Insurance:CIGNAPolicy [id number] Community Number: Hospital [id number] Repository Date:7312-51-91OF [address]HJJTGESRJUV, [place] [address]VR: 07/13/2017 Tertiary NOT GIVENUNK [place] Insurance:SELF PAY Community [facility]: Effective Repository Date:2017-07-13 07/13/2017 Skyler L [id number] Primary Skyler L StypeDOB: [place] [facility] Insurance:MEDICARE [id number] PART A BPolicy Number: Hospital [address]Mlr: [id number] Repository [phone] Date:2017-07-13 () 07/13/2017 Secondary Skyler L StypeDOB: [place] Insurance:CIGNAPolicy [id number] Community Number: Hospital [id number] Repository Date:3534-25-41KL [address]IRGKULT[place], [place] [address]ZM: 07/13/2017 Tertiary NOT GIVENUNK [place] Insurance:SELF PAY Community [facility] Number: Effective Repository Date:2017-07-13 07/12/2017 Skyler L [id number] Primary Skyler L StypeDOB: [place] [facility] Insurance:MEDICARE [id number] [address] PART A BPolicy Number: Hospital [id number]: [id number] Repository [phone] Date:2017-06-29 () 07/12/2017 Secondary Skyler L StypeDOB: [place] Insurance:CIGNAPolicy [id number] Community Number: Hospital [id number] Repository Date:9057-54-09CU [address]SNQRKLNHUXD, [place] [address]PC: 07/12/2017 Tertiary NOT GIVENUNK [place] Insurance:SELF PAY Community [facility] Number: Effective Repository Date:2017-06-29 07/06/2017 SKYLER L STYPEDOB: Primary SKYLER L STYPEDOB: [place] Insurance:MedicarePoli [id number] [place] [address] cy Number: 3 [facility] [address]ository [id number] [place], [place] Date:Plan Name:Candis Prieto [address] [place] [address]Gfx: [phone]: ([phone] (HP) 07/06/2017 Secondary SKYLER L STYPEDOB: University Insurance:MedicarePol [id number] [facility] cy Number: 3 [facility] Repository [id number] # Date:Plan Name:Candis De La Garza [address] [place] [address]Sdf: (HP) 07/06/2017 Tertiary SKYLER L STYPEDOB: University Insurance:[facility] [id number] [facility] PlanPolicy Number: 3 [facility] Repository [id number] [address]. # Date:1901-34-[address] Name:[facility] [address]Mow: [phone], [place] [phone] () [address]GM: 06/18/2017 Skyler L [id number] Primary Skyler L StypeDOB: [place] [facility] Insurance:MEDICARE [id number] PART A BPolicy Number: Hospital [address]Kyf: [id number] Repository [phone] Date:2017-06-04 () 06/18/2017 Secondary Skyler L StypeDOB: [place] Insurance:[facility] [id number] Community Number: Hospital [id number] Repository Date:4793-94-76KR [address]XS, [place] [address]SC: 06/18/2017 Tertiary NOT GIVENUNK [place] Insurance:SELF PAY Community [facility] Number: Effective Repository Date:2017-06-04
== END ==
LOC: OLS.AVEB 06:20
PROVIDERS: Visit Provider Family Medicine
DX: Z94.0 Kidney transplant status (principal)
CPT/HCPCS: 36415; 80053; 85027

== ENCOUNTER → 2018-06-23 06:20 | Outpatient (REF) | payer MEDICARE, OTHER, SELFPAY ==
[2018-06-23 09:26] LABS: Hematocrit 41.1 % (40-54); Hemoglobin 12.8 g/dl (13.0-16.5); Mean Corp Hgb Conc 31.1 g/gl (32-36); Mean Corpuscular Hgb 25.4 pg (27.0-32.0); Mean Corpuscular Volume 81.5 fL (80-94); Mean Platelet Vol. 11.1 fl (6.2-12.0); Platelet Count 208 K/mm3 (150-450); RBC Distribution Width CV 16.3 % (11.6-14.6); RBC Distribution Width SD 48.4 fl (35.1-43.9); Red Blood Count 5.04 M/mm3 (4.6-6.2); White Blood Count 4.2 K/mm3 (4.4-11.0)
[2018-06-23 09:29] LABS: Scan Indicated on CBC? Y/N NO
[2018-06-23 09:41] LABS: Anion Gap 9 (5-15); BUN 19 mg/dL (7-18); BUN/Creat Ratio 12.6 RATIO (10-20); Calcium,Total 7.6 mg/dL (8.5-10.1); Chloride 110 mmol/L (98-107); Creatinine, Serum 1.51 mg/dL (0.70-1.30); EST Glomerular Filtration Rate 52 mL/min (>60); Est Glom Filt Rate - Afr Amer 63 mL/min (>60); Glucose 84 mg/dL (74-106); Potassium 4.2 mmol/L (3.5-5.1); Sodium Level 142 mmol/L (136-145)
== END ==
PROVIDERS: Visit Provider Family Medicine
DX: Z94.0 Kidney transplant status (principal)
CPT/HCPCS: 36415; 80048; 85027

== ENCOUNTER → 2018-06-29 07:35 | Outpatient (REF) | payer MEDICARE, OTHER, SELFPAY ==
[2018-06-29 09:03] LABS: Hematocrit 43.5 % (40-54); Hemoglobin 13.8 g/dl (13.0-16.5); Mean Corp Hgb Conc 31.7 g/gl (32-36); Mean Corpuscular Hgb 25.8 pg (27.0-32.0); Mean Corpuscular Volume 81.3 fL (80-94); Mean Platelet Vol. 11.1 fl (6.2-12.0); Platelet Count 192 K/mm3 (150-450); RBC Distribution Width CV 16.6 % (11.6-14.6); RBC Distribution Width SD 48.7 fl (35.1-43.9); Red Blood Count 5.35 M/mm3 (4.6-6.2); White Blood Count 5.5 K/mm3 (4.4-11.0)
[2018-06-29 09:06] LABS: Scan Indicated on CBC? Y/N NO
[2018-06-29 09:18] LABS: Anion Gap 9 (5-15); BUN 18 mg/dL (7-18); Calcium,Total 8.3 mg/dL (8.5-10.1); Chloride 112 mmol/L (98-107); EST Glomerular Filtration Rate 43 mL/min (>60); Est Glom Filt Rate - Afr Amer 51 mL/min (>60); Glucose 91 mg/dL (74-106); Sodium Level 145 mmol/L (136-145)
== END ==
LOC: OLS.AVEB 07:35
PROVIDERS: Visit Provider Family Medicine
DX: Z94.0 Kidney transplant status (principal)
CPT/HCPCS: 36415; 80048; 85027

== ENCOUNTER → 2018-07-21 05:00 | Outpatient (REF) | payer MEDICARE, OTHER, SELFPAY ==
[2018-07-21 08:59] LABS: Hematocrit 42.3 % (40-54); Mean Corp Hgb Conc 30.7 g/gl (32-36); Mean Corpuscular Hgb 25.5 pg (27.0-32.0); Mean Corpuscular Volume 82.9 fL (80-94); Mean Platelet Vol. 11.4 fl (6.2-12.0); Platelet Count 217 K/mm3 (150-450); RBC Distribution Width CV 16.3 % (11.6-14.6); RBC Distribution Width SD 49.2 fl (35.1-43.9)
[2018-07-21 09:00] LABS: Scan Indicated on CBC? Y/N NO
[2018-07-21 09:02] LABS: Albumin, Serum 3.4 g/dL (3.2-5.0); BUN 22 mg/dL (7-18); BUN/Creat Ratio 13.4 RATIO (10-20); Calcium,Total 7.9 mg/dL (8.5-10.1); Chloride 112 mmol/L (98-107); Creatinine, Serum 1.64 mg/dL (0.70-1.30); EST Glomerular Filtration Rate 47 mL/min (>60); Est Glom Filt Rate - Afr Amer 57 mL/min (>60); Glucose 87 mg/dL (74-106); Phosphorus 3.5 mg/dL (2.5-4.9); Potassium 4.1 mmol/L (3.5-5.1); Sodium Level 143 mmol/L (136-145)
[2018-07-23 16:40] LABS: Tacrolimus (FK506) 8.7 ng/mL (2.0-20.0)
== END ==
LOC: OLS.AVEB 05:00
PROVIDERS: Visit Provider Family Medicine
DX: Z94.0 Kidney transplant status (principal)
CPT/HCPCS: 36415; 80069; 80197; 85027

== ENCOUNTER → 2018-08-22 04:00 | Outpatient (REF) | payer MEDICARE, OTHER, SELFPAY ==
[2018-08-22 08:03] LABS: Hematocrit 42.6 % (40-54); Hemoglobin 13.6 g/dl (13.0-16.5); Mean Corp Hgb Conc 31.9 g/gl (32-36); Mean Corpuscular Hgb 25.9 pg (27.0-32.0); Mean Platelet Vol. 10.8 fl (6.2-12.0); Platelet Count 222 K/mm3 (150-450); RBC Distribution Width CV 15.9 % (11.6-14.6); RBC Distribution Width SD 47.2 fl (35.1-43.9); Red Blood Count 5.26 M/mm3 (4.6-6.2); White Blood Count 4.5 K/mm3 (4.4-11.0)
[2018-08-22 08:04] LABS: Scan Indicated on CBC? Y/N NO
[2018-08-22 08:13] LABS: Albumin, Serum 3.6 g/dL (3.2-5.0); BUN 20 mg/dL (7-18); BUN/Creat Ratio 12.7 RATIO (10-20); Calcium,Total 8.1 mg/dL (8.5-10.1); Chloride 111 mmol/L (98-107); Creatinine, Serum 1.57 mg/dL (0.70-1.30); EST Glomerular Filtration Rate 50 mL/min (>60); Est Glom Filt Rate - Afr Amer 60 mL/min (>60); Glucose 93 mg/dL (74-106); Phosphorus 3.5 mg/dL (2.5-4.9); Potassium 4.1 mmol/L (3.5-5.1); Sodium Level 141 mmol/L (136-145)
[2018-08-24 11:04] LABS: Tacrolimus (FK506) 7.5 ng/mL (2.0-20.0)
== END ==
PROVIDERS: Visit Provider Family Medicine
DX: Z94.0 Kidney transplant status (principal)
CPT/HCPCS: 36415; 80069; 80197; 85027

== ENCOUNTER 2018-11-22 08:36 | Outpatient (RCR) | payer MEDICARE, SELFPAY ==
[2018-11-22 09:48] LABS: Hematocrit 50.4 % (40-54); Hemoglobin 16.2 g/dL (13.0-16.5); Mean Corp Hgb Conc 32.1 g/dL (32-36); Mean Corpuscular Hgb 27.1 pg (27.0-32.0); Mean Corpuscular Volume 84.4 fL (80-94); Mean Platelet Vol. 11.3 fl (6.2-12.0); Platelet Count 197 K/mm3 (150-450); RBC Distribution Width CV 15.3 % (11.6-14.6); RBC Distribution Width SD 45.1 fl (35.1-43.9); Red Blood Count 5.97 M/mm3 (4.6-6.2); White Blood Count 5.7 K/mm3 (4.4-11.0)
[2018-11-22 10:05] LABS: Albumin, Serum 4.1 g/dL (3.2-5.0); BUN 26 mg/dL (7-18); BUN/Creat Ratio 16.5 RATIO (10-20); Calcium,Total 8.7 mg/dL (8.5-10.1); Chloride 109 mmol/L (98-107); Creatinine, Serum 1.58 mg/dL (0.70-1.30); EST Glomerular Filtration Rate 49 mL/min (>60); Est Glom Filt Rate - Afr Amer 60 mL/min (>60); Glucose 92 mg/dL (74-106); Phosphorus 2.3 mg/dL (2.5-4.9); Sodium Level 142 mmol/L (136-145)
[2018-11-25 11:23] LABS: Tacrolimus (FK506) 8.9 ng/mL (2.0-20.0)
== END 2018-11-30 16:30 | disposition home or self-care (01) ==
LOC: LAB 08:36
PROVIDERS: Family Provider Family Medicine; PCP Family Medicine
DX: D89.9 Disorder involving the immune mechanism, unspecified (principal); Z94.0 Kidney transplant status
CPT/HCPCS: 36415; 80069; 80197; 85027

== ENCOUNTER 2019-01-03 08:35 | Outpatient (RCR) | payer MEDICARE, SELFPAY ==
[2019-01-03 09:25] LABS: Hematocrit 50.5 % (40-54); Hemoglobin 16.3 g/dL (13.0-16.5); Mean Corp Hgb Conc 32.3 g/dL (32-36); Mean Corpuscular Hgb 27.8 pg (27.0-32.0); Mean Platelet Vol. 10.8 fl (6.2-12.0); Platelet Count 181 K/mm3 (150-450); RBC Distribution Width CV 14.8 % (11.6-14.6); RBC Distribution Width SD 46.5 fl (35.1-43.9); Red Blood Count 5.87 M/mm3 (4.6-6.2); White Blood Count 5.2 K/mm3 (4.4-11.0)
[2019-01-03 09:44] LABS: Albumin, Serum 3.9 g/dL (3.2-5.0); BUN 18 mg/dL (7-18); BUN/Creat Ratio 10.8 RATIO (10-20); Calcium,Total 8.2 mg/dL (8.5-10.1); Chloride 110 mmol/L (98-107); Creatinine, Serum 1.67 mg/dL (0.70-1.30); EST Glomerular Filtration Rate 46 mL/min (>60); Est Glom Filt Rate - Afr Amer 56 mL/min (>60); Glucose 91 mg/dL (74-106); Phosphorus 1.6 mg/dL (2.5-4.9); Potassium 3.8 mmol/L (3.5-5.1); Sodium Level 143 mmol/L (136-145)
[2019-01-06 12:29] LABS: Tacrolimus (FK506) 7.6 ng/mL (2.0-20.0)
== END 2019-01-30 18:00 | disposition home or self-care (01) ==
LOC: LAB 08:35
PROVIDERS: Family Provider Family Medicine; PCP Family Medicine
DX: Z94.0 Kidney transplant status (principal); D89.9 Disorder involving the immune mechanism, unspecified
CPT/HCPCS: 36415; 80069; 80197; 85027

== ENCOUNTER 2019-02-22 08:06 | Outpatient (RCR) | payer MEDICARE, SELFPAY ==
[2019-02-22 09:16] LABS: Hematocrit 52.8 % (40-54); Hemoglobin 16.8 g/dL (13.0-16.5); Mean Corp Hgb Conc 31.8 g/dL (32-36); Mean Corpuscular Hgb 28.5 pg (27.0-32.0); Mean Corpuscular Volume 89.5 fL (80-94); Platelet Count 174 K/mm3 (150-450); RBC Distribution Width CV 14.2 % (11.6-14.6); RBC Distribution Width SD 46.6 fl (35.1-43.9); White Blood Count 5.1 K/mm3 (4.4-11.0)
[2019-02-22 09:36] LABS: BUN 23 mg/dL (7-18); BUN/Creat Ratio 14.2 RATIO (10-20); Calcium,Total 8.6 mg/dL (8.5-10.1); Chloride 108 mmol/L (98-107); Creatinine, Serum 1.62 mg/dL (0.70-1.30); EST Glomerular Filtration Rate 48 mL/min (>60); Est Glom Filt Rate - Afr Amer 58 mL/min (>60); Glucose 115 mg/dL (74-106); Phosphorus 2.2 mg/dL (2.5-4.9); Potassium 4.2 mmol/L (3.5-5.1); Sodium Level 141 mmol/L (136-145)
[2019-02-27 13:23] LABS: Tacrolimus (FK506) 11.1 ng/mL (2.0-20.0)
== END 2019-03-02 08:32 | disposition home health service (06) ==
LOC: LAB 08:06
PROVIDERS: Family Provider Family Medicine; PCP Family Medicine
DX: D89.9 Disorder involving the immune mechanism, unspecified (principal); Z94.0 Kidney transplant status
CPT/HCPCS: 36415; 80069; 80197; 85027

== ENCOUNTER 2019-03-24 08:12 | Outpatient (RCR) | payer MEDICARE, SELFPAY ==
[2019-03-03 09:45] LABS: Hematocrit 52.8 % (40-54); Mean Corp Hgb Conc 32.2 g/dL (32-36); Mean Corpuscular Hgb 28.3 pg (27.0-32.0); Mean Platelet Vol. 11.1 fl (6.2-12.0); Platelet Count 189 K/mm3 (150-450); White Blood Count 5.3 K/mm3 (4.4-11.0)
[2019-03-03 10:12] LABS: BUN 14 mg/dL (7-18); BUN/Creat Ratio 9.3 RATIO (10-20); Calcium,Total 8.1 mg/dL (8.5-10.1); Chloride 106 mmol/L (98-107); EST Glomerular Filtration Rate 52 mL/min (>60); Est Glom Filt Rate - Afr Amer 63 mL/min (>60); Glucose 90 mg/dL (74-106); Phosphorus 1.5 mg/dL (2.5-4.9); Potassium 3.6 mmol/L (3.5-5.1); Sodium Level 141 mmol/L (136-145)
[2019-03-07 16:45] LABS: Tacrolimus (FK506) 9.6 ng/mL (2.0-20.0)
[2019-03-24 08:32] LABS: Hemoglobin 16.1 g/dL (13.0-16.5); Mean Corp Hgb Conc 32.2 g/dL (32-36); Mean Corpuscular Hgb 28.3 pg (27.0-32.0); Mean Platelet Vol. 10.7 fl (6.2-12.0); Platelet Count 183 K/mm3 (150-450); RBC Distribution Width CV 14.4 % (11.6-14.6); RBC Distribution Width SD 46.4 fl (35.1-43.9); Red Blood Count 5.68 M/mm3 (4.6-6.2)
[2019-03-24 08:47] LABS: BUN 25 mg/dL (7-18); BUN/Creat Ratio 16.9 RATIO (10-20); Calcium,Total 8.4 mg/dL (8.5-10.1); Chloride 109 mmol/L (98-107); Cholesterol 225 mg/dL (200); Creatinine, Serum 1.48 mg/dL (0.70-1.30); EST Glomerular Filtration Rate 53 mL/min (>60); Est Glom Filt Rate - Afr Amer 64 mL/min (>60); Glucose 103 mg/dL (74-106); High Density Lipoprotein 70 mg/dL; Phosphorus 2.9 mg/dL (2.5-4.9); Potassium 3.6 mmol/L (3.5-5.1); Sodium Level 143 mmol/L (136-145); Triglycerides 83 mg/dL; Very Low Density Lipoprotein 17 mg/dL (5-40)
[2019-03-28 07:38] LABS: Tacrolimus (FK506) 4.1 ng/mL (2.0-20.0)
== END 2019-03-24 18:00 | disposition home or self-care (01) ==
LOC: LAB 08:12
PROVIDERS: Family Provider Family Medicine; PCP Family Medicine
DX: D89.9 Disorder involving the immune mechanism, unspecified (principal); Z94.0 Kidney transplant status
CPT/HCPCS: 36415; 80061; 80069; 80197; 85027

== ENCOUNTER 2019-04-22 09:43 | Outpatient (RCR) | payer MEDICAID, SELFPAY ==
[2019-04-22 10:10] LABS: Hematocrit 51.3 % (40-54); Hemoglobin 16.7 g/dL (13.0-16.5); Mean Corp Hgb Conc 32.6 g/dL (32-36); Mean Corpuscular Hgb 29.4 pg (27.0-32.0); Mean Corpuscular Volume 90.3 fL (80-94); Mean Platelet Vol. 9.7 fl (6.2-12.0); Platelet Count 235 K/mm3 (150-450); RBC Distribution Width CV 13.8 % (11.6-14.6); RBC Distribution Width SD 45.7 fl (35.1-43.9); Red Blood Count 5.68 M/mm3 (4.6-6.2)
[2019-04-22 10:22] LABS: Albumin, Serum 3.7 g/dL (3.2-5.0); BUN 16 mg/dL (7-18); BUN/Creat Ratio 9.6 RATIO (10-20); Calcium,Total 8.3 mg/dL (8.5-10.1); Chloride 111 mmol/L (98-107); Creatinine, Serum 1.66 mg/dL (0.70-1.30); EST Glomerular Filtration Rate 47 mL/min (>60); Est Glom Filt Rate - Afr Amer 56 mL/min (>60); Glucose 93 mg/dL (74-106); Phosphorus 2.1 mg/dL (2.5-4.9); Potassium 3.8 mmol/L (3.5-5.1); Sodium Level 143 mmol/L (136-145)
[2019-04-27 11:38] LABS: Tacrolimus (FK506) 7.6 ng/mL (2.0-20.0)
== END 2019-04-22 18:00 | disposition home or self-care (01) ==
LOC: LAB 09:43
PROVIDERS: Family Provider Family Medicine; PCP Family Medicine
DX: D89.9 Disorder involving the immune mechanism, unspecified (principal); Z94.0 Kidney transplant status
CPT/HCPCS: 36415; 80069; 80197; 85027

== ENCOUNTER 2019-06-02 08:16 | Outpatient (RCR) | payer MEDICAID, SELFPAY ==
[2019-06-02 09:35] LABS: Albumin, Serum 3.6 g/dL (3.2-5.0); BUN 19 mg/dL (7-18); BUN/Creat Ratio 11.5 RATIO (10-20); Calcium,Total 8.4 mg/dL (8.5-10.1); Chloride 113 mmol/L (98-107); Creatinine, Serum 1.65 mg/dL (0.70-1.30); EST Glomerular Filtration Rate 47 mL/min (>60); Est Glom Filt Rate - Afr Amer 57 mL/min (>60); Glucose 95 mg/dL (74-106); Phosphorus 1.7 mg/dL (2.5-4.9); Potassium 3.6 mmol/L (3.5-5.1); Sodium Level 141 mmol/L (136-145)
[2019-06-02 09:39] LABS: Hematocrit 52.9 % (40-54); Hemoglobin 17.6 g/dL (13.0-16.5); Mean Corp Hgb Conc 33.3 g/dL (32-36); Mean Corpuscular Hgb 29.3 pg (27.0-32.0); Mean Platelet Vol. 10.6 fl (6.2-12.0); Platelet Count 182 K/mm3 (150-450); RBC Distribution Width CV 13.9 % (11.6-14.6); RBC Distribution Width SD 44.7 fl (35.1-43.9); Red Blood Count 6.01 M/mm3 (4.6-6.2); White Blood Count 7.6 K/mm3 (4.4-11.0)
== END 2019-06-02 18:00 | disposition home or self-care (01) ==
LOC: LAB 08:16
PROVIDERS: Family Provider Family Medicine; PCP Family Medicine
DX: Z94.0 Kidney transplant status (principal); D89.9 Disorder involving the immune mechanism, unspecified
CPT/HCPCS: 36415; 80069; 80197; 85027

== ENCOUNTER 2019-07-01 08:10 | Outpatient (RCR) | payer MEDICAID, SELFPAY ==
[2019-07-01 09:27] LABS: Hematocrit 51.2 % (40-54); Hemoglobin 16.4 g/dL (13.0-16.5); Mean Corpuscular Hgb 28.2 pg (27.0-32.0); Mean Platelet Vol. 10.8 fl (6.2-12.0); Platelet Count 198 K/mm3 (150-450); RBC Distribution Width CV 13.9 % (11.6-14.6); RBC Distribution Width SD 44.2 fl (35.1-43.9); Red Blood Count 5.82 M/mm3 (4.6-6.2); White Blood Count 8.8 K/mm3 (4.4-11.0)
[2019-07-01 09:32] LABS: MPA Mycophenolic Acid for CCF MAILED SPECIMEN
[2019-07-01 09:57] LABS: Albumin, Serum 3.4 g/dL (3.2-5.0); BUN 21 mg/dL (7-18); BUN/Creat Ratio 12.9 RATIO (10-20); Calcium,Total 8.6 mg/dL (8.5-10.1); Chloride 110 mmol/L (98-107); Creatinine, Serum 1.63 mg/dL (0.70-1.30); EST Glomerular Filtration Rate 47 mL/min (>60); Est Glom Filt Rate - Afr Amer 57 mL/min (>60); Glucose 95 mg/dL (74-106); Phosphorus 2.3 mg/dL (2.5-4.9); Potassium 3.9 mmol/L (3.5-5.1); Sodium Level 141 mmol/L (136-145)
[2019-07-07 00:39] LABS: Tacrolimus (FK506) 5.8 ng/mL (2.0-20.0)
== END 2019-07-01 18:00 | disposition home or self-care (01) ==
LOC: LAB 08:10
PROVIDERS: Family Provider Family Medicine; PCP Family Medicine
DX: Z94.0 Kidney transplant status (principal); D89.9 Disorder involving the immune mechanism, unspecified
CPT/HCPCS: 80069; 80197; 85027

== ENCOUNTER → 2019-07-24 16:34 | Outpatient (CLI) | payer MEDICAID, SELFPAY ==
[2019-07-24 17:39] LABS: Absolute Neutrophil Count 4.1 X10^3/uL (2.0-7.7); Basophil# 0.05 X10^3/uL; Basophil% 0.8 % (0-1); Eosinophils% 3.1 % (0-5); Hematocrit 50.3 % (40-54); Lymphocyte % 18.8 % (19-41); Mean Corp Hgb Conc 31.8 g/dL (32-36); Mean Corpuscular Hgb 28.1 pg (27.0-32.0); Mean Corpuscular Volume 88.4 fL (80-94); Monocyte# 0.83 X10^3/uL; NRBC Flagged by Analyzer 0 % (0-5); Neutrophil # 4.06 X10^3/uL (2.7-7.7); Neutrophil % 63.8 % (47-70); Platelet Count 193 K/mm3 (150-450); RBC Distribution Width CV 13.8 % (11.6-14.6); RBC Distribution Width SD 44.5 fl (35.1-43.9); Red Blood Count 5.69 M/mm3 (4.6-6.2); White Blood Count 6.4 K/mm3 (4.4-11.0)
[2019-07-24 18:29] LABS: AST(SGOT) 24 U/L (15-37); Alanine Aminotransfer ALT/SGPT 35 U/L (16-61); Albumin, Serum 3.9 g/dL (3.2-5.0); Alkaline Phosphatase 105 U/L (45-117); Anion Gap 5 (5-15); BUN 20 mg/dL (7-18); BUN/Creat Ratio 12.4 RATIO (10-20); Bilirubin, Direct 0.22 mg/dL (0.00-0.30); Calcium,Total 8.8 mg/dL (8.5-10.1); Chloride 110 mmol/L (98-107); Cholesterol 229 mg/dL (200); Creatinine, Serum 1.61 mg/dL (0.70-1.30); EST Glomerular Filtration Rate 48 mL/min (>60); Est Glom Filt Rate - Afr Amer 58 mL/min (>60); Glucose 98 mg/dL (74-106); High Density Lipoprotein < 3 mg/dL; Protein, Total 7.9 g/dL (6.4-8.2); Sodium Level 141 mmol/L (136-145); Triglycerides 148 mg/dL; Very Low Density Lipoprotein 30 mg/dL (5-40)
[2019-07-25 10:58] LABS: Hepatitis B Surface Antibody Non-Reactive; Hepatitis B Surface Antigen Non-Reactive (Nonreactive); Hepatitis C Antibody Non-Reactive (Nonreactive)
[2019-07-26 20:07] LABS: QNTFERON TB Mitogen Value > 10.00 IU/mL (.); QNTFERON TB Nil Value 0.02 IU/mL (.); QNTFERON TB1+ Ag Value 0.02 IU/mL (.); QNTFERON TB2+ Ag Value 0.01 IU/mL (.)
[2019-07-26 20:33] LABS: Hepatitis B Core Ab Total Negative (Negative); QNTIFERON TB Positive Criteria Negative (Negative)
== END ==
PROVIDERS: PCP Family Medicine; Referring Provider Physician Assistant Medical; Visit Provider Physician Assistant Medical
DX: L30.9 Dermatitis, unspecified (principal); R52 Pain, unspecified
CPT/HCPCS: 36415; 80053; 80061; 82248; 85025; 86480; 86704; 86706; 86803; 87340

== ENCOUNTER 2019-08-14 08:26 | Outpatient (RCR) | payer MEDICAID, SELFPAY ==
[2019-08-14 08:59] LABS: Hematocrit 51.5 % (40-54); Hemoglobin 16.5 g/dL (13.0-16.5); Mean Corpuscular Hgb 28.2 pg (27.0-32.0); Mean Platelet Vol. 10.8 fl (6.2-12.0); Platelet Count 147 K/mm3 (150-450); RBC Distribution Width CV 14.2 % (11.6-14.6); RBC Distribution Width SD 45.2 fl (35.1-43.9); Red Blood Count 5.85 M/mm3 (4.6-6.2); White Blood Count 5.5 K/mm3 (4.4-11.0)
[2019-08-14 09:26] LABS: BUN 20 mg/dL (7-18); BUN/Creat Ratio 12.8 RATIO (10-20); Calcium,Total 8.7 mg/dL (8.5-10.1); Chloride 112 mmol/L (98-107); Creatinine, Serum 1.56 mg/dL (0.70-1.30); EST Glomerular Filtration Rate 50 mL/min (>60); Est Glom Filt Rate - Afr Amer 60 mL/min (>60); Glucose 91 mg/dL (74-106); Potassium 3.9 mmol/L (3.5-5.1); Sodium Level 143 mmol/L (136-145)
[2019-08-16 23:10] LABS: Tacrolimus (FK506) 8.6 ng/mL (2.0-20.0)
== END 2019-08-31 18:00 | disposition home or self-care (01) ==
LOC: LAB 08:26
PROVIDERS: Family Provider Family Medicine; PCP Family Medicine
DX: Z94.0 Kidney transplant status (principal)
CPT/HCPCS: 36415; 80069; 80197; 85027

== ENCOUNTER → 2019-10-10 08:21 | Outpatient (CLI) | payer MEDICAID, SELFPAY ==
[2019-10-10 08:46] LABS: Hematocrit 50.7 % (40-54); Hemoglobin 16.2 g/dL (13.0-16.5); Mean Corpuscular Hgb 28.7 pg (27.0-32.0); Mean Corpuscular Volume 89.7 fL (80-94); Mean Platelet Vol. 11.3 fl (6.2-12.0); Platelet Count 161 K/mm3 (150-450); RBC Distribution Width SD 45.8 fl (35.1-43.9); Red Blood Count 5.65 M/mm3 (4.6-6.2)
[2019-10-10 09:14] LABS: Albumin, Serum 3.8 g/dL (3.2-5.0); BUN 22 mg/dL (7-18); BUN/Creat Ratio 15.9 RATIO (10-20); Calcium,Total 8.5 mg/dL (8.5-10.1); Chloride 109 mmol/L (98-107); Creatinine, Serum 1.38 mg/dL (0.70-1.30); EST Glomerular Filtration Rate 57 mL/min (>60); Est Glom Filt Rate - Afr Amer 70 mL/min (>60); Glucose 95 mg/dL (74-106); Phosphorus 2.7 mg/dL (2.5-4.9); Potassium 3.6 mmol/L (3.5-5.1); Sodium Level 140 mmol/L (136-145)
[2019-10-12 18:25] LABS: Tacrolimus (FK506) 5.8 ng/mL (2.0-20.0)
== END ==
PROVIDERS: PCP Family Medicine
DX: Z94.0 Kidney transplant status (principal)
CPT/HCPCS: 36415; 80069; 80197; 85027

== ENCOUNTER 2019-12-13 08:08 | Outpatient (RCR) | payer MEDICAID, SELFPAY ==
[2019-12-13 09:05] LABS: Hematocrit 51.1 % (40-54); Hemoglobin 16.6 g/dL (13.0-16.5); Mean Corp Hgb Conc 32.5 g/dL (32-36); Mean Corpuscular Hgb 28.5 pg (27.0-32.0); Mean Corpuscular Volume 87.8 fL (80-94); Mean Platelet Vol. 11.1 fl (6.2-12.0); Platelet Count 189 K/mm3 (150-450); RBC Distribution Width CV 13.4 % (11.6-14.6); RBC Distribution Width SD 42.6 fl (35.1-43.9); Red Blood Count 5.82 M/mm3 (4.6-6.2); White Blood Count 5.1 K/mm3 (4.4-11.0)
[2019-12-13 09:21] LABS: Albumin, Serum 3.9 g/dL (3.2-5.0); BUN 17 mg/dL (7-18); BUN/Creat Ratio 11.8 RATIO (10-20); Calcium,Total 8.3 mg/dL (8.5-10.1); Chloride 110 mmol/L (98-107); Creatinine, Serum 1.44 mg/dL (0.70-1.30); EST Glomerular Filtration Rate 55 mL/min (>60); Est Glom Filt Rate - Afr Amer 66 mL/min (>60); Glucose 91 mg/dL (74-106); Phosphorus 1.6 mg/dL (2.5-4.9); Potassium 3.4 mmol/L (3.5-5.1); Sodium Level 141 mmol/L (136-145)
[2019-12-15 11:44] LABS: Tacrolimus (FK506) 5.7 ng/mL (2.0-20.0)
== END 2020-01-01 18:00 | disposition home or self-care (01) ==
LOC: LAB 08:08
PROVIDERS: Family Provider Family Medicine; PCP Family Medicine
DX: Z94.0 Kidney transplant status (principal)
CPT/HCPCS: 36415; 80069; 80197; 85027

== ENCOUNTER → 2020-01-01 | Outpatient (CLI) | payer MEDICAID, SELFPAY | END | disposition home or self-care (01) | PROVIDERS: PCP Family Medicine; Visit Provider Urology | DX: N39.0 Urinary tract infection, site not specified (principal) | CPT/HCPCS: 87077; 87086; 87088; 87186 ==

== ENCOUNTER 2020-01-03 09:34 | Outpatient (RCR) | payer MEDICAID, SELFPAY ==
[2020-01-03 10:40] LABS: PSA,Total - Annual Screen 2.21 ng/mL (0.00-4.00)
== END 2020-01-03 18:00 | disposition home or self-care (01) ==
LOC: LAB 09:34
PROVIDERS: Urology; Family Provider Family Medicine; PCP Family Medicine
DX: Z94.0 Kidney transplant status (principal)
CPT/HCPCS: 36415; 84153; G0103

== ENCOUNTER 2020-02-01 08:19 | Outpatient (RCR) | payer MEDICAID, SELFPAY ==
[2020-02-01 09:28] LABS: Hematocrit 54.4 % (40-54); Hemoglobin 17.5 g/dL (13.0-16.5); Mean Corp Hgb Conc 32.2 g/dL (32-36); Mean Corpuscular Hgb 28.5 pg (27.0-32.0); Mean Corpuscular Volume 88.7 fL (80-94); Mean Platelet Vol. 11.3 fl (6.2-12.0); Platelet Count 154 K/mm3 (150-450); RBC Distribution Width CV 13.8 % (11.6-14.6); RBC Distribution Width SD 45.2 fl (35.1-43.9); Red Blood Count 6.13 M/mm3 (4.6-6.2); White Blood Count 4.9 K/mm3 (4.4-11.0)
[2020-02-01 10:02] LABS: Albumin, Serum 4.2 g/dL (3.2-5.0); BUN 19 mg/dL (7-18); BUN/Creat Ratio 13.2 RATIO (10-20); Calcium,Total 8.6 mg/dL (8.5-10.1); Chloride 108 mmol/L (98-107); Creatinine, Serum 1.44 mg/dL (0.70-1.30); EST Glomerular Filtration Rate 55 mL/min (>60); Est Glom Filt Rate - Afr Amer 66 mL/min (>60); Glucose 86 mg/dL (74-106); Phosphorus 1.8 mg/dL (2.5-4.9); Potassium 3.7 mmol/L (3.5-5.1); Sodium Level 140 mmol/L (136-145)
== END 2020-02-01 18:00 | disposition home or self-care (01) ==
LOC: LAB 08:19
PROVIDERS: Family Provider Family Medicine; PCP Family Medicine
DX: Z94.0 Kidney transplant status (principal)
CPT/HCPCS: 36415; 80069; 80197; 85027

== ENCOUNTER 2020-04-09 08:15 | Outpatient (RCR) | payer MEDICAID, SELFPAY ==
[2020-04-09 09:09] LABS: Absolute Neutrophil Count 4.5 X10^3/uL (2.0-7.7); Basophil# 0.05 X10^3/uL; Basophil% 0.8 % (0-1); Eosinophil# 0.17 X10^3/uL; Eosinophils% 2.6 % (0-5); Hematocrit 51.4 % (40-54); Hemoglobin 16.8 g/dL (13.0-16.5); Lymphocyte % 15.4 % (19-41); Mean Corp Hgb Conc 32.7 g/dL (32-36); Mean Corpuscular Volume 88.8 fL (80-94); Mean Platelet Vol. 10.7 fl (6.2-12.0); Monocyte# 0.77 X10^3/uL; Monocyte% 11.9 % (0-10); NRBC Flagged by Analyzer 0 % (0-5); Neutrophil # 4.48 X10^3/uL (2.7-7.7); Platelet Count 172 K/mm3 (150-450); RBC Distribution Width CV 13.7 % (11.6-14.6); RBC Distribution Width SD 44.9 fl (35.1-43.9); Red Blood Count 5.79 M/mm3 (4.6-6.2); White Blood Count 6.5 K/mm3 (4.4-11.0)
[2020-04-09 09:29] LABS: Albumin, Serum 3.9 g/dL (3.2-5.0); BUN 22 mg/dL (7-18); BUN/Creat Ratio 14.9 RATIO (10-20); Calcium,Total 8.7 mg/dL (8.5-10.1); Chloride 109 mmol/L (98-107); Creatinine, Serum 1.48 mg/dL (0.70-1.30); EST Glomerular Filtration Rate 53 mL/min (>60); Est Glom Filt Rate - Afr Amer 64 mL/min (>60); Glucose 105 mg/dL (74-106); Phosphorus 2.4 mg/dL (2.5-4.9); Potassium 3.3 mmol/L (3.5-5.1); Sodium Level 143 mmol/L (136-145)
[2020-04-13 13:04] LABS: Tacrolimus (FK506) < 1.0 ng/mL (2.0-20.0)
== END 2020-04-09 18:00 | disposition home or self-care (01) ==
LOC: LAB 08:15
PROVIDERS: Family Provider Family Medicine; PCP Family Medicine
DX: Z94.0 Kidney transplant status (principal)
CPT/HCPCS: 36415; 80069; 80197; 85025

== ENCOUNTER → 2020-05-30 08:45 | Outpatient (CLI) | payer MEDICAID, SELFPAY | PROVIDERS: PCP Family Medicine; Referring Provider Internal Medicine Nephrology | DX: Z94.0 Kidney transplant status (principal) ==

== ENCOUNTER 2020-05-30 08:46 | Outpatient (RCR) | payer MEDICAID, SELFPAY ==
[2020-05-30 10:18] LABS: Hematocrit 50.6 % (40-54); Hemoglobin 16.7 g/dL (13.0-16.5); Mean Corpuscular Hgb 29.1 pg (27.0-32.0); Mean Corpuscular Volume 88.3 fL (80-94); Mean Platelet Vol. 11.7 fl (6.2-12.0); Platelet Count 156 K/mm3 (150-450); RBC Distribution Width CV 14.2 % (11.6-14.6); RBC Distribution Width SD 45.5 fl (35.1-43.9); Red Blood Count 5.73 M/mm3 (4.6-6.2); White Blood Count 4.9 K/mm3 (4.4-11.0)
[2020-05-30 10:57] LABS: Albumin, Serum 3.8 g/dL (3.2-5.0); BUN 16 mg/dL (7-18); BUN/Creat Ratio 12.2 RATIO (10-20); Calcium,Total 8.4 mg/dL (8.5-10.1); Chloride 111 mmol/L (98-107); Creatinine, Serum 1.31 mg/dL (0.70-1.30); EST Glomerular Filtration Rate 61 mL/min (>60); Est Glom Filt Rate - Afr Amer 74 mL/min (>60); Glucose 90 mg/dL (74-106); Phosphorus 2.1 mg/dL (2.5-4.9); Potassium 3.6 mmol/L (3.5-5.1); Sodium Level 142 mmol/L (136-145)
[2020-06-02 07:22] LABS: Tacrolimus (FK506) 9.3 ng/mL (2.0-20.0)
== END 2020-05-30 18:00 | disposition home or self-care (01) ==
LOC: LAB 08:46
PROVIDERS: Family Provider Family Medicine; PCP Family Medicine
DX: Z94.0 Kidney transplant status (principal)
CPT/HCPCS: 36415; 80069; 80197; 85027

== ENCOUNTER → 2020-08-08 09:32 | Outpatient (CLI) | payer MEDICAID, SELFPAY ==
[2020-08-08 09:39] LABS: Bacteria 0 SEEN /hpf (None Seen); Mucous, Urine 0 SEEN /hpf (<or=2+); Red Blood Cells-Urine 0 SEEN /hpf (0-5); Squamous Epithelial Cells - UA 0 SEEN /hpf (0-5)
[2020-08-08 09:48] LABS: Color, Urine Straw (Yellow); Glucose, Dipstick Normal (Normal); Ketone-Dipstick Negative (Negative); Leukocyte Esterase-Dipstick Negative /ul (Negative); Nitrite-Dipstick Negative (Negative); Occult Blood-Urine Negative /ul (Negative); Protein-Dipstick Negative (Negative); Urine Bilirubin Dipstick Negative (Negative); Urine Clarity Clear (Clear); Urine Urobilinogen Normal (Normal)
[2020-08-08 09:55] LABS: White Blood Cells 0-5 SEEN /hpf (0-5)
== END ==
PROVIDERS: PCP Family Medicine; Referring Provider Nurse Practitioner Family; Visit Provider Nurse Practitioner Family
DX: R82.998 Other abnormal findings in urine (principal)
CPT/HCPCS: 81001; 87086; 87088

== ENCOUNTER 2020-08-27 08:26 | Outpatient (RCR) | payer MEDICAID, SELFPAY ==
[2020-08-27 09:56] LABS: Hematocrit 49.1 % (40-54); Hemoglobin 15.6 g/dL (13.0-16.5); Mean Corp Hgb Conc 31.8 g/dL (32-36); Mean Corpuscular Hgb 28.9 pg (27.0-32.0); Mean Corpuscular Volume 90.9 fL (80-94); Mean Platelet Vol. 11.4 fl (6.2-12.0); Platelet Count 121 K/mm3 (150-450); RBC Distribution Width CV 13.3 % (11.6-14.6); RBC Distribution Width SD 44.7 fl (35.1-43.9); White Blood Count 4.9 K/mm3 (4.4-11.0)
[2020-08-27 10:20] LABS: BUN 18 mg/dL (7-18); BUN/Creat Ratio 13.7 RATIO (10-20); Calcium,Total 8.3 mg/dL (8.5-10.1); Chloride 110 mmol/L (98-107); Creatinine, Serum 1.31 mg/dL (0.70-1.30); EST Glomerular Filtration Rate 61 mL/min (>60); Est Glom Filt Rate - Afr Amer 74 mL/min (>60); Glucose 90 mg/dL (74-106); Phosphorus 2.5 mg/dL (2.5-4.9); Potassium 3.5 mmol/L (3.5-5.1); Sodium Level 141 mmol/L (136-145)
[2020-09-01 08:34] LABS: Tacrolimus (FK506) 8.9 ng/mL (2.0-20.0)
== END 2020-08-27 18:00 | disposition home or self-care (01) ==
LOC: LAB 08:26
PROVIDERS: Family Provider Family Medicine; PCP Family Medicine
DX: Z94.0 Kidney transplant status (principal)
CPT/HCPCS: 36415; 80069; 80197; 85027

== ENCOUNTER → 2020-11-26 07:58 | Outpatient (CLI) | payer MEDICAID, SELFPAY ==
[2020-11-26 08:10] LABS: Mucous, Urine 0 SEEN /hpf (<or=2+)
[2020-11-26 09:02] LABS: Anion Gap 7 (5-15); BUN 15 mg/dL (7-18); BUN/Creat Ratio 10.9 RATIO (10-20); Calcium,Total 8.6 mg/dL (8.5-10.1); Chloride 109 mmol/L (98-107); Cholesterol 210 mg/dL (200); Creatinine, Serum 1.38 mg/dL (0.70-1.30); EST Glomerular Filtration Rate 57 mL/min (>60); Est Glom Filt Rate - Afr Amer 69 mL/min (>60); Glucose 91 mg/dL (74-106); High Density Lipoprotein 66 mg/dL; Potassium 3.6 mmol/L (3.5-5.1); Sodium Level 139 mmol/L (136-145); Triglycerides 68 mg/dL; Very Low Density Lipoprotein 14 mg/dL (5-40)
[2020-11-26 09:25] LABS: Color, Urine Yellow (Yellow); Glucose, Dipstick Normal (Normal); Ketone-Dipstick Negative (Negative); Leukocyte Esterase-Dipstick 500 /ul (Negative); Nitrite-Dipstick Positive (Negative); Occult Blood-Urine 50 /ul (Negative); Protein-Dipstick 15 mg/dl (Negative); Specific Gravity, Urine 1.015 (1.002-1.030); Urine Bilirubin Dipstick Negative (Negative); Urine Clarity Sl. Cloudy (Clear); Urine Urobilinogen Normal (Normal)
[2020-11-26 09:34] LABS: White Blood Cells 10-25 SEEN /hpf (0-5)
[2020-11-26 09:35] LABS: Bacteria 3+ /hpf (None Seen); Red Blood Cells-Urine 0-5 SEEN /hpf (0-5); Squamous Epithelial Cells - UA 0-5 SEEN /hpf (0-5)
[2020-11-29 10:19] LABS: CMV by PCR Negative (Negative); Tacrolimus (FK506) 7.6 ng/mL (2.0-20.0)
== END ==
PROVIDERS: PCP Family Medicine; Referring Provider Internal Medicine Nephrology; Visit Provider Internal Medicine Nephrology
DX: D89.9 Disorder involving the immune mechanism, unspecified (principal); Z94.0 Kidney transplant status
CPT/HCPCS: 36415; 80048; 80061; 80197; 81001; 86769; 87496

== ENCOUNTER → 2021-04-03 08:14 | Outpatient (CLI) | payer MEDICARE, MEDICAID, SELFPAY ==
[2021-04-03 09:26] LABS: Anion Gap 9 (5-15); BUN 21 mg/dL (7-18); BUN/Creat Ratio 14.2 RATIO (10-20); Calcium,Total 8.7 mg/dL (8.5-10.1); Chloride 114 mmol/L (98-107); Cholesterol 191 mg/dL (200); Creatinine, Serum 1.48 mg/dL (0.70-1.30); EST Glomerular Filtration Rate 53 mL/min (>60); Est Glom Filt Rate - Afr Amer 64 mL/min (>60); Glucose 95 mg/dL (74-106); High Density Lipoprotein 59 mg/dL; Potassium 3.8 mmol/L (3.5-5.1); Sodium Level 143 mmol/L (136-145); Triglycerides 68 mg/dL; Very Low Density Lipoprotein 14 mg/dL (5-40)
[2021-04-07 13:30] LABS: Tacrolimus (FK506) 19.4 ng/mL (2.0-20.0)
== END ==
PROVIDERS: PCP Family Medicine; Referring Provider Internal Medicine Nephrology; Visit Provider Internal Medicine Nephrology
DX: D89.9 Disorder involving the immune mechanism, unspecified (principal); Z94.0 Kidney transplant status
CPT/HCPCS: 36415; 80048; 80061; 80197

== ENCOUNTER → 2021-04-19 07:56 | Outpatient (CLI) | payer MEDICARE, MEDICAID, SELFPAY | PROVIDERS: PCP Family Medicine; Referring Provider Internal Medicine Nephrology; Visit Provider Internal Medicine Nephrology | DX: N18.2 Chronic kidney disease, stage 2 (mild) (principal); Z94.0 Kidney transplant status | CPT/HCPCS: 36415; 80197 ==

== ENCOUNTER 2021-06-04 09:16 | Outpatient (CLI) | payer MEDICARE, SELFPAY ==
[2021-06-04 10:34] LABS: Absolute Neutrophil Count 3.4 X10^3/uL (2.0-7.7); Basophil# 0.05 X10^3/uL; Basophil% 0.8 % (0-1); Eosinophil# 0.58 X10^3/uL; Eosinophils% 9.6 % (0-5); Hematocrit 41.3 % (40-54); Hemoglobin 13.6 g/dL (13.0-16.5); Lymphocyte % 21.5 % (19-41); Mean Corp Hgb Conc 32.9 g/dL (32-36); Monocyte# 0.68 X10^3/uL; Monocyte% 11.2 % (0-10); NRBC Flagged by Analyzer 0 % (0-5); Neutrophil # 3.44 X10^3/uL (2.7-7.7); Neutrophil % 56.7 % (47-70); Platelet Count 123 K/mm3 (150-450); RBC Distribution Width CV 14.6 % (11.6-14.6); RBC Distribution Width SD 48.3 fl (35.1-43.9); Red Blood Count 4.54 M/mm3 (4.6-6.2); White Blood Count 6.1 K/mm3 (4.4-11.0)
[2021-06-04 11:14] LABS: AST(SGOT) 26 U/L (15-37); Alanine Aminotransfer ALT/SGPT 35 U/L (16-61); Albumin, Serum 3.5 g/dL (3.2-5.0); Alkaline Phosphatase 127 U/L (45-117); Anion Gap 14 (5-15); BUN 44 mg/dL (7-18); BUN/Creat Ratio 16.1 RATIO (10-20); Calcium,Total 8.1 mg/dL (8.5-10.1); Chloride 118 mmol/L (98-107); Creatinine, Serum 2.73 mg/dL (0.70-1.30); EST Glomerular Filtration Rate 26 mL/min (>60); Est Glom Filt Rate - Afr Amer 31 mL/min (>60); Globulin 3.5 g/dL (2.2-4.2); Glucose 137 mg/dL (74-106); Potassium 3.8 mmol/L (3.5-5.1); Sodium Level 145 mmol/L (136-145)
== END 2021-06-04 23:59 | disposition short-term general hospital (02) ==
PROVIDERS: PCP Family Medicine; Referring Provider Family Medicine; Visit Provider Family Medicine
DX: R63.4 Abnormal weight loss (principal)
CPT/HCPCS: 36415; 80053; 85025

== ENCOUNTER 2021-07-09 13:27 | Outpatient (CLI) | payer MEDICARE, SELFPAY ==
[2021-07-09 14:00] LABS: Anion Gap 10 (5-15); BUN 31 mg/dL (7-18); BUN/Creat Ratio 17.5 RATIO (10-20); Calcium,Total 8.9 mg/dL (8.5-10.1); Chloride 112 mmol/L (98-107); Creatinine, Serum 1.77 mg/dL (0.70-1.30); EST Glomerular Filtration Rate 43 mL/min (>60); Est Glom Filt Rate - Afr Amer 52 mL/min (>60); Glucose 112 mg/dL (74-106); Sodium Level 141 mmol/L (136-145)
== END 2021-07-09 23:59 | disposition home or self-care (01) ==
PROVIDERS: PCP Family Medicine; Referring Provider Internal Medicine Nephrology; Visit Provider Internal Medicine Nephrology
DX: N18.31 Chronic kidney disease, stage 3a (principal); Z94.0 Kidney transplant status
CPT/HCPCS: 36415; 80048

== ENCOUNTER 2021-08-26 07:44 | Outpatient (RCR) | payer MEDICARE, SELFPAY ==
[2021-08-26 09:20] LABS: Hematocrit 34.2 % (40-54); Hemoglobin 11.5 g/dL (13.0-16.5); Mean Corp Hgb Conc 33.6 g/dL (32-36); Mean Corpuscular Hgb 30.4 pg (27.0-32.0); Mean Corpuscular Volume 90.5 fL (80-94); Mean Platelet Vol. 12.2 fl (6.2-12.0); Platelet Count 114 K/mm3 (150-450); RBC Distribution Width CV 13.7 % (11.6-14.6); RBC Distribution Width SD 45.7 fl (35.1-43.9); Red Blood Count 3.78 M/mm3 (4.6-6.2); White Blood Count 5.1 K/mm3 (4.4-11.0)
[2021-08-26 09:51] LABS: Anion Gap 10 (5-15); BUN 30 mg/dL (7-18); Calcium,Total 8.4 mg/dL (8.5-10.1); Chloride 116 mmol/L (98-107); EST Glomerular Filtration Rate 52 mL/min (>60); Est Glom Filt Rate - Afr Amer 63 mL/min (>60); Glucose 105 mg/dL (74-106); Potassium 3.6 mmol/L (3.5-5.1); Sodium Level 142 mmol/L (136-145)
[2021-08-26 16:23] LABS: Protein, Urine (Random) 27.2 mg/dL (<11.9); Protein:Creat Ratio 356 mg/g CRE (0-200)
[2021-08-29 12:56] LABS: Tacrolimus (FK506) 11.4 ng/mL (2.0-20.0)
== END 2021-08-26 18:00 | disposition home or self-care (01) ==
LOC: LAB 07:44
PROVIDERS: Internal Medicine Nephrology; Family Provider Family Medicine; PCP Family Medicine
DX: Z94.0 Kidney transplant status (principal); D89.9 Disorder involving the immune mechanism, unspecified
CPT/HCPCS: 36415; 80048; 80197; 82570; 84156; 85027

== ENCOUNTER → 2021-12-05 | Outpatient (CLI) | payer MEDICARE, SELFPAY ==
--- NOTE | 2021-12-05 15:57 | RAD_ITS ---
STUDY: X-RAY CHEST REASON FOR EXAM: Male, 56 years old. CHEST PAIN SHORTNESS OF BREATH TECHNIQUE: XR Chest 2 Views COMPARISON: CT chest 12/12/2027 FINDINGS: There is no demonstrated pleural abnormality. Normal size heart. Normal mediastinum and alton. Normal visualized pulmonary arteries. Normal visualized aortic arch and descending thoracic aorta. There are diffuse degenerative changes of the visualized thoracic spine. Normal visualized ribs, clavicles, and shoulders. Stable compression deformities of the midthoracic spine. There is no demonstrated abnormality of the visualized soft tissue structures of the upper abdomen. RAD/Chest PA and Lateral IMPRESSION: There are no acute findings. Electronically Signed: Hans Wong MD at 17:55 EDT ,
[2021-12-05 17:38] LABS: Absolute Lymphocyte Count 0.84 X10^3/uL (0.83-4.51); Absolute Neutrophil Count 2.8 X10^3/uL (2.0-7.7); Basophil# 0.02 X10^3/uL; Basophil% 0.5 % (0-1); Eosinophil# 0.04 X10^3/uL; Hematocrit 34.6 % (40-54); Hemoglobin 11.8 g/dL (13.0-16.5); Lymphocyte # 0.84 X10^3/ul (0.83-4.51); Mean Corp Hgb Conc 34.1 g/dL (32-36); Mean Corpuscular Hgb 30.6 pg (27.0-32.0); Mean Corpuscular Volume 89.6 fL (80-94); Mean Platelet Vol. 12.5 fl (6.2-12.0); Monocyte# 0.53 X10^3/uL; Monocyte% 12.6 % (0-10); NRBC Flagged by Analyzer 0 % (0-5); Neutrophil # 2.76 X10^3/uL (2.7-7.7); Neutrophil % 65.7 % (47-70); Platelet Count 104 K/mm3 (150-450); RBC Distribution Width CV 14.4 % (11.6-14.6); RBC Distribution Width SD 47.4 fl (35.1-43.9); Red Blood Count 3.86 M/mm3 (4.6-6.2); White Blood Count 4.2 K/mm3 (4.4-11.0)
[2021-12-05 17:42] LABS: Anion Gap 13 (5-15); BUN 48 mg/dL (7-18); BUN/Creat Ratio 13.8 RATIO (10-20); Calcium,Total 8.3 mg/dL (8.5-10.1); Chloride 118 mmol/L (98-107); Creatinine, Serum 3.48 mg/dL (0.70-1.30); EST Glomerular Filtration Rate 20 mL/min (>60); Est Glom Filt Rate - Afr Amer 24 mL/min (>60); Glucose 118 mg/dL (74-106); Potassium 3.8 mmol/L (3.5-5.1); Sodium Level 144 mmol/L (136-145)
== END | disposition home or self-care (01) ==
PROVIDERS: PCP Family Medicine; Referring Provider Family Medicine; Visit Provider Family Medicine
DX: R06.02 Shortness of breath (principal)
CPT/HCPCS: 36415; 71046; 80048; 85025

== ENCOUNTER 2022-01-06 15:22 | Outpatient (CLI) | payer MEDICARE, SELFPAY ==
[2022-01-06 17:06] LABS: Hematocrit 33.7 % (40-54); Hemoglobin 10.8 g/dL (13.0-16.5); Mean Corpuscular Hgb 29.1 pg (27.0-32.0); Mean Corpuscular Volume 90.8 fL (80-94); Mean Platelet Vol. 11.3 fl (6.2-12.0); POSITIVE COUNT YES; Platelet Count 93 K/mm3 (150-450); RBC Distribution Width SD 46.7 fl (35.1-43.9); Red Blood Count 3.71 M/mm3 (4.6-6.2); White Blood Count 3.1 K/mm3 (4.4-11.0)
[2022-01-06 17:15] LABS: Scan Indicated on CBC? Y/N YES- FLAGS NOTED
[2022-01-06 17:40] LABS: Albumin, Serum 3.6 g/dL (3.2-5.0); BUN 43 mg/dL (7-18); BUN/Creat Ratio 20.3 RATIO (10-20); Calcium,Total 8.5 mg/dL (8.5-10.1); Chloride 119 mmol/L (98-107); Creatinine, Serum 2.12 mg/dL (0.70-1.30); EST Glomerular Filtration Rate 35 mL/min (>60); Est Glom Filt Rate - Afr Amer 42 mL/min (>60); Glucose 100 mg/dL (74-106); Potassium 4.1 mmol/L (3.5-5.1); Sodium Level 144 mmol/L (136-145)
[2022-01-06 17:44] LABS: Vitamin D,25 Hydroxy 40.3 ng/mL
[2022-01-06 18:00] LABS: Differential Comment SCANNED
[2022-01-07 09:28] LABS: PTHIN 93.8 pg/mL (18.4-80.1)
[2022-01-11 11:44] LABS: Tacrolimus (FK506) 21.6 ng/mL (2.0-20.0)
== END 2022-01-06 23:59 | disposition home or self-care (01) ==
LOC: LAB 15:23
PROVIDERS: PCP Family Medicine; Visit Provider Internal Medicine Nephrology
DX: N18.31 Chronic kidney disease, stage 3a (principal); Z94.0 Kidney transplant status
CPT/HCPCS: 36415; 80069; 80197; 82306; 82570; 83970; 84156; 85027

== ENCOUNTER → 2022-01-07 | Outpatient (CLI) | payer MEDICARE, SELFPAY ==
[2022-01-07 17:42] LABS: Protein, Urine (Random) 56.2 mg/dL (<11.9); Protein:Creat Ratio 572 mg/g CRE (0-200)
== END | disposition home or self-care (01) ==
PROVIDERS: PCP Family Medicine; Visit Provider Internal Medicine Nephrology
DX: Z94.0 Kidney transplant status (principal)
CPT/HCPCS: 82570; 84156

== ENCOUNTER → 2022-01-24 | Outpatient (CLI) | payer MEDICARE, SELFPAY ==
[2022-01-24 08:39] LABS: Anion Gap 9 (5-15); BUN 40 mg/dL (7-18); BUN/Creat Ratio 22.7 RATIO (10-20); Calcium,Total 8.6 mg/dL (8.5-10.1); Chloride 120 mmol/L (98-107); Creatinine, Serum 1.76 mg/dL (0.70-1.30); EST Glomerular Filtration Rate 43 mL/min (>60); Est Glom Filt Rate - Afr Amer 52 mL/min (>60); Glucose 104 mg/dL (74-106); Potassium 4.2 mmol/L (3.5-5.1); Sodium Level 145 mmol/L (136-145)
[2022-01-28 09:30] LABS: Tacrolimus (FK506) 13.5 ng/mL (2.0-20.0)
== END | disposition home or self-care (01) ==
LOC: LAB 07:44
PROVIDERS: PCP Family Medicine; Referring Provider Internal Medicine Nephrology; Visit Provider Internal Medicine Nephrology
DX: D89.9 Disorder involving the immune mechanism, unspecified (principal); Z94.0 Kidney transplant status
CPT/HCPCS: 36415; 80048; 80197

== ENCOUNTER 2022-02-10 07:43 | Outpatient (RCR) | payer MEDICARE, SELFPAY ==
[2022-02-10 08:20] LABS: Hematocrit 31.4 % (40-54); Hemoglobin 10.3 g/dL (13.0-16.5); Mean Corp Hgb Conc 32.8 g/dL (32-36); Mean Corpuscular Hgb 29.9 pg (27.0-32.0); Mean Corpuscular Volume 91.3 fL (80-94); Mean Platelet Vol. 11.4 fl (6.2-12.0); Platelet Count 119 K/mm3 (150-450); RBC Distribution Width CV 14.1 % (11.6-14.6); Red Blood Count 3.44 M/mm3 (4.6-6.2); White Blood Count 3.6 K/mm3 (4.4-11.0)
[2022-02-10 08:51] LABS: Albumin, Serum 3.3 g/dL (3.2-5.0); BUN 37 mg/dL (7-18); BUN/Creat Ratio 18.1 RATIO (10-20); Calcium,Total 8.4 mg/dL (8.5-10.1); Chloride 115 mmol/L (98-107); Creatinine, Serum 2.04 mg/dL (0.70-1.30); EST Glomerular Filtration Rate 36 mL/min (>60); Est Glom Filt Rate - Afr Amer 44 mL/min (>60); Glucose 94 mg/dL (74-106); Phosphorus 2.4 mg/dL (2.5-4.9); Potassium 4.4 mmol/L (3.5-5.1); Sodium Level 141 mmol/L (136-145)
[2022-02-10 09:29] LABS: Protein, Urine (Random) 54.6 mg/dL (<11.9); Protein:Creat Ratio 501 mg/g CRE (0-200)
[2022-02-14 13:54] LABS: Tacrolimus (FK506) 19.2 ng/mL (2.0-20.0)
== END 2022-02-10 18:00 | disposition home or self-care (01) ==
LOC: LAB 07:43
PROVIDERS: Family Provider Family Medicine; PCP Family Medicine; Referring Provider Internal Medicine Nephrology; Visit Provider Internal Medicine Nephrology
DX: Z94.0 Kidney transplant status (principal)
CPT/HCPCS: 36415; 80069; 80197; 82570; 84156; 85027

== ENCOUNTER → 2022-02-12 | Outpatient (CLI) | payer MEDICARE, SELFPAY ==
[2022-02-12 18:13] LABS: Anion Gap 9 (5-15); BUN 44 mg/dL (7-18); Calcium,Total 8.5 mg/dL (8.5-10.1); Chloride 116 mmol/L (98-107); Creatinine, Serum 2.75 mg/dL (0.70-1.30); EST Glomerular Filtration Rate 26 mL/min (>60); Est Glom Filt Rate - Afr Amer 31 mL/min (>60); Glucose 102 mg/dL (74-106); Sodium Level 144 mmol/L (136-145)
== END | disposition home or self-care (01) ==
LOC: LAB 16:59
PROVIDERS: PCP Family Medicine; Visit Provider Family Medicine
DX: N18.9 Chronic kidney disease, unspecified (principal)
CPT/HCPCS: 36415; 80048

== ENCOUNTER 2022-02-13 17:14 | Inpatient (IN) | payer MEDICARE, MEDICAID, SELFPAY ==
[2022-02-13 17:15] VITALS: BP 117/72; PULSE 85; RESP 14; TEMP 36.8; O2SAT 98; BMI 13.6
--- NOTE | 2022-02-13 17:39 | EKG12_ITS ---
Test Reason : Blood Pressure : / mmHG Vent. Rate : 088 BPM Atrial Rate : 088 BPM P-R Int : 138 ms QRS Dur : 090 ms QT Int : 416 ms P-R-T Axes : 061 063 056 degrees QTc Int : 503 ms Normal sinus rhythm Prolonged QT Abnormal ECG Confirmed by MIGUEL MORENO, TR ([id number]), script editor MIGUEL ANGEL DEAL ([id number]) on 02/16/2022 9:56:44 A M Referred By: YEHUDA Confirmed By:VAMSHI RIVERA MD
--- NOTE | 2022-02-13 17:40 | EDS_ITS ---
HPI History of Present Illness Chief Complaint: Abn Labs Narrative Narrative: Patient being sent for worsening renal function. He had a renal transplant that was placed 3 or 4 years ago at [facility]. It has been working well and he has not required dialysis since then. In the last several days, he has had decreasing urine output. He self caths daily. No fevers or chills. He does have some lower abdominal pain. He denies nausea or vomiting or hematuria. He does not have pain over his right lower quadrant kidney specifically. He has been compliant with his medications. Earlier in the week, his creatinine was elevated, his PCP checked it yesterday and it was elevated further to the point where he was sent here for admission, but I do not have those numbers right now. [facility] Medical History (Updated 02/13/22 @ 20:[address] Jesica Russo MD) Anemia Bronchitis CKD (chronic kidney disease), stage III Congenital nystagmus DVT (deep venous thrombosis) HTN (hypertension) Mild intellectual disability Neurogenic bladder disorder Pancytopenia Pulmonary embolism Urinary retention Vocal cord dysfunction Home Medications mycophenolate mofetil 500 mg tablet 500 mg PO 0900,2099 Anti-Rejection 07/14/16 [History Last Taken 02/13/22] amlodipine 5 mg tablet 5 mg PO QHS BLOOD PRESSURE 09/29/17 [History Last Taken 02/12/22] tacrolimus 1 mg capsule, immediate-release 1 mg PO 0900,2099 ANTI-REJECTION 01/11/18 [History Last Taken 02/13/22] sennosides 8.6 mg-docusate sodium 50 mg tablet (Stool Softener-Stimulant Laxative) 2 tab PO BID ##120 01/25/18 [Rx Last Taken Unknown] multivitamin 1 tab PO QHS 02/13/22 [History Last Taken 02/12/22] sodium bicarbonate 650 mg tablet 650 mg PO TID 02/13/22 [History Last Taken 02/13/22] tacrolimus 0.5 mg capsule, immediate-release 0.5 mg PO 0900,2099 anti rejection 02/13/22 [History Last Taken 02/13/22] Allergy/AdvReac Type Severity Reaction Status Date / Time No Known Allergies Allergy Verified 12/22/17 11:09 Family History (Updated 02/13/22 @ 19:[address] Jesica Russo MD) Mother Hypertension Father Diabetes Surgical History (Updated 02/13/22 @ 19:[address] Jesica Russo MD) Kidney transplant recipient Renal transplant, status post S/P arteriovenous (AV) fistula creation Social History Smoking Status: Never smoker second hand exposure: No alcohol intake: never substance use type: does not use caffeine: No ROS ROS ED Constitutional Constitutional ED: Denies chills or fever(s) Eyes Eyes: Denies change in vision or diplopia ENT ENT ED: Denies rhinorrhea or sore throat Cardiovascular Cardiovascular: Reports leg edema; Denies chest pain or palpitations Respiratory/Chest Respiratory/Chest: Denies cough or dyspnea Gastrointestinal Gastrointestinal: Reports abdominal pain; Denies diarrhea, nausea or vomiting Genitourinary Genitourinary ED: Reports decreased urination and difficulty urinating; Denies flank pain or hematuria Musculoskeletal Musculoskeletal: Denies back pain or neck pain Integumentary Denies abscess or rash Neurologic Neurologic: Denies headache(s), paresthesias or weakness Psychiatric Psychiatric: Denies anxiety or suicidal thoughts EXAM Physical Exam Const Vital Signs: 02/13/22 17:15 02/13/22 17:28 02/13/22 19:14 Temperature 98.2 F Temperature Source Temporal Pulse Rate 85 88 Respiratory Rate 14 16 Respiratory Effort Normal Respiratory Pattern Normal Blood Pressure 117/72 148/89 H Blood Pressure Mean 87 108 Pulse Ox 98 99 Oxygen Delivery Method Room Air Room Air Positive well nourished and well developed General Appearance ED: well developed and NAD HEENT Reports moist mucous membranes normocephalic and atraumatic Eyes PERRL and EOMs intact bilaterally Neck full ROM and supple Resp normal respiratory effort and clear to auscultation bilaterally Cardio regular rate, regular rhythm and no murmurs GI non-distended GI Narrative: Suprapubic tenderness. Well-healed surgical scar over the right lower quadrant renal transplant, no tenderness here, no erythema. No guarding or rebound. No other areas of abdominal tenderness. Auscultation: normoactive bowel sounds Palpation: soft Back/Spine no CVA tenderness General Back: other FROM Extremity normal to inspection General Extremety ED: Yes edema; Negative for pulses abnormal or tenderness General Extremity: edema bilateral lower extremity Details: moderate; Negative for pulses abnormal Neuro oriented x3, CN's II-XII intact bilaterally and no sensory deficits noted Sensorium / Orientation: awake and alert Motor Exam: strength 5/5 throughout Psych mental status grossly normal Skin no rashes or lesions noted and no wounds MDM MDM MDM Narrative Medical decision making narrative: Creatinine had been in the 1.7 range last month, slowly rising now 2.82, with a drop in urine output. Discussed with nephrology, they recommend admission in addition to initially getting an ultrasound of the transplanted kidney. We also obtained a postvoid residual after he was cathed via bedside bladder scanner, it read about 100 cc. Urine appears to be infected which is consistent with his symptoms, that is sent for culture, it is a catheterized specimen, and he is given Rocephin empirically. Will discuss with hospitalist for admission, renal ultrasound of the transplanted kidney shows nothing acute. Lab Data Attestation: I reviewed the patient's lab results. Labs: Laboratory Results - last 24 hr 02/13/22 02/13/22 02/13/22 17:55 17:55 19:05 WBC 3.2 L RBC 3.15 L Hgb 9.7 L Hct 28.6 L MCV 90.8 MCH 30.8 MCHC 33.9 RDW Std Deviation 47.7 H RDW Coeff of Anil 14.4 Plt Count 116 L MPV 10.7 Immature Gran % (Auto) 0.300 Neut % (Auto) 59.3 Lymph % (Auto) 19.7 [place] % (Auto) 17.8 H Eos % (Auto) 1.9 Baso % (Auto) 1.0 Absolute Neuts (auto) 1.9 L Absolute Lymphs (auto) 0.62 L Nucleated RBC % 0 Sodium 144 Potassium 3.9 Chloride 115 H Carbon Dioxide 18.0 L BUN 48 H Creatinine 2.82 H Estim Creat Clear Calc 20.42 Est GFR (MDRD) Af Amer 30 L Est GFR (MDRD) Non-Af 25 L BUN/Creatinine Ratio 17.0 Glucose 129 H Calcium 8.2 L Phosphorus 3.4 Albumin 3.4 Urine Color Yellow Urine Clarity Cloudy Urine pH 5.0 Ur Specific [place] 1.020 Urine Protein 30 H Urine Glucose (UA) Normal Urine Ketones Negative Urine Occult Blood 250 H Urine Nitrite Negative Urine Bilirubin Negative Urine Urobilinogen Normal Ur Leukocyte Esterase 500 H Urine RBC > 100 SEEN Urine WBC >100 SEEN Ur Squamous Epith Cells 0-5 SEEN Urine Bacteria 4+ Urine Mucus 0 SEEN Radiography Diagnostic Testing: Clinical Impression(s) from Imaging Studies Renal Ultrasound 02/13/22 19:23 IMPRESSION: 1. RIGHT transplant kidney measures 9.5 x 4.6 x 3.6 cm. No hydronephrosis or solid or cystic masses involving the renal allograft. No perinephric fluid collections. 2. LEFT [place] kidney is small and hyperdense consistent with sequelae medical renal disease. A LEFT renal cyst is noted. RIGHT [place] kidney is not demonstrated. Electronically Signed: Sulaiman Dowd MD at 20:16 EDT , Rhythm Strip Rhythm Strip: Sinus Rhythm Rate: 85 Ectopy: None EKG Initial EKG: Attestation: I personally reviewed and interpreted this EKG as follows: Interpretation: Sinus Rhythm and No Acute Injury Pattern Discharge Plan Dx/Rx/DC Orders Clinical Impression: PRISCILLA (acute kidney injury), Kidney transplant recipient, Acute cystitis Disposition Disposition: Acute Care Hospital [facility]
[2022-02-13 18:11] LABS: Absolute Lymphocyte Count 0.62 X10^3/uL (0.83-4.51); Absolute Neutrophil Count 1.9 X10^3/uL (2.0-7.7); Basophil# 0.03 X10^3/uL; Eosinophil# 0.06 X10^3/uL; Eosinophils% 1.9 % (0-5); Hematocrit 28.6 % (40-54); Hemoglobin 9.7 g/dL (13.0-16.5); Lymphocyte # 0.62 X10^3/ul (0.83-4.51); Lymphocyte % 19.7 % (19-41); Mean Corp Hgb Conc 33.9 g/dL (32-36); Mean Corpuscular Hgb 30.8 pg (27.0-32.0); Mean Corpuscular Volume 90.8 fL (80-94); Mean Platelet Vol. 10.7 fl (6.2-12.0); Monocyte# 0.56 X10^3/uL; Monocyte% 17.8 % (0-10); NRBC Flagged by Analyzer 0 % (0-5); Neutrophil # 1.87 X10^3/uL (2.7-7.7); Neutrophil % 59.3 % (47-70); Platelet Count 116 K/mm3 (150-450); RBC Distribution Width CV 14.4 % (11.6-14.6); RBC Distribution Width SD 47.7 fl (35.1-43.9); Red Blood Count 3.15 M/mm3 (4.6-6.2); White Blood Count 3.2 K/mm3 (4.4-11.0)
[2022-02-13 18:21] LABS: Albumin, Serum 3.4 g/dL (3.2-5.0); BUN 48 mg/dL (7-18); Calcium,Total 8.2 mg/dL (8.5-10.1); Chloride 115 mmol/L (98-107); Creatinine, Serum 2.82 mg/dL (0.70-1.30); EST Glomerular Filtration Rate 25 mL/min (>60); Est Glom Filt Rate - Afr Amer 30 mL/min (>60); Estimated Creatinine Clearance 20.42 ml/min; Glucose 129 mg/dL (74-106); Phosphorus 3.4 mg/dL (2.5-4.9); Potassium 3.9 mmol/L (3.5-5.1); Sodium Level 144 mmol/L (136-145)
--- NOTE | 2022-02-13 18:28 | NURSING ---
PAGED NEPHROLOGY. 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
[2022-02-13 19:12] LABS: Mucous, Urine 0 SEEN /hpf (<or=2+)
[2022-02-13 19:14] VITALS: BP 148/89; PULSE 88; RESP 16; O2SAT 99
--- NOTE | 2022-02-13 19:23 | US_ITS ---
INDICATION: renal failure, dec UOP EXAMINATION: Ultrasound US Kidney(s) complete (eg, kidneys and bladder) TECHNIQUE: Marr scale and color doppler images were obtained of the kidneys. COMPARISON: None. FINDINGS: RIGHT transplant KIDNEY: 9.5 x 4.6 x 3.6 cm. There is no hydronephrosis. No shadowing calculus, focal lesion or perinephric collection is demonstrated. RIGHT [place] KIDNEY: Not demonstrated LEFT [place] KIDNEY: 8.2 x 3.2 x 3.9 cm. There is no hydronephrosis. No shadowing calculus, focal lesion or perinephric collection is demonstrated. There is diffusely increased renal echogenicity consistent with medical renal disease. There is a 1.4 x 1.3 x 1.1 cm cyst in the midpole of the LEFT [place] kidney. URINARY BLADDER: Bladder is decompressed, maximal volume estimated at 35.6 mL per US/Transplanted Kidney IMPRESSION: 1. RIGHT transplant kidney measures 9.5 x 4.6 x 3.6 cm. No hydronephrosis or solid or cystic masses involving the renal allograft. No perinephric fluid collections. 2. LEFT [place] kidney is small and hyperdense consistent with sequelae medical renal disease. A LEFT renal cyst is noted. RIGHT [place] kidney is not demonstrated. Electronically Signed: Sulaiman Dowd MD at 20:16 EDT ,
[2022-02-13 19:24] LABS: Color, Urine Yellow (Yellow); Glucose, Dipstick Normal (Normal); Ketone-Dipstick Negative (Negative); Leukocyte Esterase-Dipstick 500 /ul (Negative); Nitrite-Dipstick Negative (Negative); Occult Blood-Urine 250 /ul (Negative); Protein-Dipstick 30 mg/dl (Negative); Urine Bilirubin Dipstick Negative (Negative); Urine Clarity Cloudy (Clear); Urine Urobilinogen Normal (Normal)
--- NOTE | 2022-02-13 19:34 | ED.RN ---
Bladder scan used to check post residual urine. Bladder mildly distend with pt grimacing and saying it is painful. Bladder scanned 100mL. Results given to Dr. Celis.
[2022-02-13 19:35] LABS: Bacteria 4+ /hpf (None Seen); Red Blood Cells-Urine > 100 SEEN /hpf (0-5); Squamous Epithelial Cells - UA 0-5 SEEN /hpf (0-5); White Blood Cells >100 SEEN /hpf (0-5)
[2022-02-13] MEDS: Ceftriaxone 1 GM/50 ML BAG IV (20:20)
--- NOTE | 2022-02-13 20:25 | HP.PCM.HOS_ITS ---
HPI - General General Date of Admission: 02/13/22 Date of Service: 02/13/22 Chief Complaint: Decreased UOP, flank discomfort/abdominal pain, worsening outpatient renal function. HPI Narrative The patient is a 56 y/o M w/ PMHx: Hx C-difficile colitis, Chronic thrombocytopenia, Chronic anemia/AOCD, ESRD previously on HD s/p Renal Txp 3-4 years prior at [facility] with now CKD stage III unclear subtype, Neurogenic bladder w/ self-cath regimen, Mild MRDD, HTN who presents to the [facility] [place] ED on 02/13/22 with history of recently worsening renal function over the last several days with decreased urine output upon his routine self catheterization and R sided flank and RLQ discomfort with PCP evaluation with rising Cr with 01/24/22 Cr 1.76->02/12/22 Cr 2.04->02/12/22 Cr 2.75 prompting referral to the ED for evaluation. Family has concerns that patient has not been self-catheterizing per his regimen (4x/daily). Work-up in the ED included T98.2, heart rate 85, BP 117/72, respiratory rate 14, 98% on room air, CBC with WC 3.2, hemoglobin 9.7, platelet 116 with ANC 1.9 and lymphopenia concurrently, BMP with chloride 115, carbon oxide 18, BUN/creatinine 48/2.82, glucose 129, urinalysis with elevated specific remedy 1.020, protein 30, negative ketone, occult blood 250, negative nitrite, 500 leukocyte esterase with greater than 100 urine RBC as well as WBCs with 4+ urine bacteria, urine culture pending per ED, tacrolimus level pending per ED, renal ultrasound with right transplant kidney measuring 9.5 x 4.6 x 3.6 cm with no hydronephrosis or solid or cystic masses involving the renal allograft nor any perinephric fluid collections, left [place] kidney small and hyperdense consistent with sequelae of medical renal disease with a left renal cyst noted. In the ED patient administered IV Rocephin. [facility] Medical History (Updated 02/13/22 @ 20:[address] Jesica Russo MD) Anemia Bronchitis CKD (chronic kidney disease), stage III Congenital nystagmus DVT (deep venous thrombosis) HTN (hypertension) Mild intellectual disability Neurogenic bladder disorder Pancytopenia Pulmonary embolism Urinary retention Vocal cord dysfunction Home Medications mycophenolate mofetil 500 mg tablet 500 mg PO 0900,2100 Anti-Rejection 07/14/16 [History Last Taken 02/13/22] amlodipine 5 mg tablet 5 mg PO QHS BLOOD PRESSURE 09/29/17 [History Last Taken 02/12/22] tacrolimus 1 mg capsule, immediate-release 1 mg PO 0900,2100 ANTI-REJECTION 01/11/18 [History Last Taken 02/13/22] sennosides 8.6 mg-docusate sodium 50 mg tablet (Stool Softener-Stimulant Laxative) 2 tab PO BID ##120 01/25/18 [Rx Last Taken Unknown] multivitamin 1 tab PO QHS 02/13/22 [History Last Taken 02/12/22] sodium bicarbonate 650 mg tablet 650 mg PO TID 02/13/22 [History Last Taken 02/13/22] tacrolimus 0.5 mg capsule, immediate-release 0.5 mg PO 0900,2099 anti rejection 02/13/22 [History Last Taken 02/13/22] Allergy/AdvReac Type Severity Reaction Status Date / Time No Known Allergies Allergy Verified 12/22/17 11:09 Family History (Updated 02/13/22 @ 19:[address] Jesica Russo MD) Mother Hypertension Father Diabetes Surgical History (Updated 02/13/22 @ 19:[address] Jesica Russo MD) Kidney transplant recipient Renal transplant, status post S/P arteriovenous (AV) fistula creation Social History Smoking Status: Never smoker second hand exposure: No alcohol intake: never substance use type: does not use caffeine: No ROS ROS Narrative Admission Review of Systems: CONSTITUTIONAL: No weight loss, fever, chills, + weakness or fatigue. HEENT: + Chronic nystagmus. Eyes: No visual loss, blurred vision, double vision or yellow sclerae. Ears, Nose, Throat: No hearing loss, sneezing, congestion, runny nose or sore throat. SKIN: No rash or itching, lesions, wounds. CARDIOVASCULAR: No chest pain, chest pressure or chest discomfort, palpitations, edema, orthopnea, syncopal events. RESPIRATORY: No shortness of breath, cough or sputum, wheezing, hemoptysis. GASTROINTESTINAL: + R sided abdominal/flank pain. No anorexia, nausea, vomiting or diarrhea, melena, BRBPR. GENITOURINARY: + Decreased urine output, flank pain, chronic neurogenic bladder with self catheterization regimen. NEUROLOGICAL: + Chronic underlying mild MRDD, neurogenic bladder, chronic nystagmus. No headache, dizziness, syncope, paralysis, ataxia, numbness or tingling in the extremities, focal weakness, change in bowel or bladder control, seizure. MUSCULOSKELETAL: + muscle, back pain, joint pain or stiffness. HEMATOLOGIC: + anemia, bleeding or bruising. LYMPHATICS: No enlarged nodes. No history of splenectomy. PSYCHIATRIC: No history of depression or anxiety. ENDOCRINOLOGIC: No reports of sweating, cold or heat intolerance. No polyuria or polydipsia. ALLERGIES: No history of asthma, hives, eczema or rhinitis. Vital Signs Vital Signs Vital Signs: 02/13/22 17:15 02/13/22 17:28 02/13/22 19:14 Temperature 98.2 F Temperature Source Temporal Pulse Rate 85 88 Respiratory Rate 14 16 Respiratory Effort Normal Respiratory Pattern Normal Blood Pressure 117/72 148/89 H Blood Pressure Mean 87 108 Pulse Ox 98 99 Oxygen Delivery Method Room Air Room Air Weight Weight: 106 lb 4.205 oz Body Mass Index (BMI) 13.6 Physical Exam Narrative Physical Examination: General: awake, alert, oriented x 3,cooperative, seated upright in the ED bed in no apparent distress, underlying mild cognitive impairment. Skin: normal color, turgor, no icterus, cyanosis. HEENT: AT/NC, EOMI, PERRLA, moderately dry MM, no carotid bruits or JVD noted, chronic congenital nystagmus evident. Lungs: Mildly diminished BS, > bases, moderate effort, no rales, ronchi or wheezing. Heart: Regular rate with regular rhythm; no gallop, rub audible. Abdomen: soft, mild suprapubic tenderness to palpation otherwise abdomen NTTP, ND, hyperactive BS, no HSM. Extremities: no cyanosis, no clubbing, pedal to s[place] non-pitting edema. Neurological: patient awake, alert, oriented as noted; cognitive function at baseline with underlying chronic cognitive impairment; pupils equally reactive to light and accommodation with chronic congenital nystagmus, cranial nerves grossly normal otherwise, moving all 4 extremities, no focal deficits, strength moderately globally decreased secondary to acute presentation. Psychiatric: affect appears fatigued, no acute evidence of depressive or anxiety feelings. Results Lab / Micro Data Result Diagrams: 02/13/22 17:55 02/13/22 17:55 Labs: Laboratory Results - last 24 hr 02/13/22 17:55: Sodium 144, Potassium 3.9, Chloride 115 H, Carbon Dioxide 18.0 L , BUN 48 H, Creatinine 2.82 H, Estim Creat Clear Calc 20.42, Est GFR (MDRD) Af Amer 30 L, Est GFR (MDRD) Non-Af 25 L, BUN/Creatinine Ratio 17.0, Glucose 129 H, Calcium 8.2 L, Phosphorus 3.4, Albumin 3.4 02/13/22 17:55: WBC 3.2 L, RBC 3.15 L, Hgb 9.7 L, Hct 28.6 L, MCV 90.8, MCH 30.8, MCHC 33.9, RDW Std Deviation 47.7 H, RDW Coeff of Anil 14.4, Plt Count 116 L, MPV 10.7, Immature Gran % (Auto) 0.300, Neut % (Auto) 59.3, Lymph % (Auto) 19.7, [place] % (Auto) 17.8 H, Eos % (Auto) 1.9, Baso % (Auto) 1.0, Absolute Neuts (auto) 1.9 L, Absolute Lymphs (auto) 0.62 L, Nucleated RBC % 0 02/13/22 19:05: Urine Color Yellow, Urine Clarity Cloudy, Urine pH 5.0, Ur Specific [place] 1.020, Urine Protein 30 H, Urine Glucose (UA) Normal, Urine Ketones Negative, Urine Occult Blood 250 H, Urine Nitrite Negative, Urine Bilirubin Negative, Urine Urobilinogen Normal, Ur Leukocyte Esterase 500 H, Urine RBC > 100 SEEN, Urine WBC >100 SEEN, Ur Squamous Epith Cells 0-5 SEEN, Urine Bacteria 4+, Urine Mucus 0 SEEN Radiology Impression Renal Ultrasound 02/13/22 19:23 IMPRESSION: 1. RIGHT transplant kidney measures 9.5 x 4.6 x 3.6 cm. No hydronephrosis or solid or cystic masses involving the renal allograft. No perinephric fluid collections. 2. LEFT [place] kidney is small and hyperdense consistent with sequelae medical renal disease. A LEFT renal cyst is noted. RIGHT [place] kidney is not demonstrated. Electronically Signed: Sulaiman Dowd MD at 20:16 EDT , Assessment & Plan Assessment/Plan (1) PRISCILLA (acute kidney injury): (2) Urinary tract infection: PLAN: Plan The patient is a 56 y/o M w/ PMHx: Hx C-difficile colitis, Chronic thrombocytopenia, Chronic anemia/AOCD, ESRD previously on HD s/p Renal Txp 3-4 years prior at [facility] with now CKD stage III unclear subtype, Neurogenic bladder w/ self-cath regimen, Mild MRDD, HTN who presents to the [facility] ED on 02/13/22 with history of recently worsening renal function over the last several days with decreased urine output upon his routine self catheterization and R sided flank and RLQ discomfort with PCP evaluation with rising Cr with 01/24/22 Cr 1.76->02/12/22 Cr 2.04->02/12/22 Cr 2.75 prompting referral to the ED for evaluation. #1. Acute Complicated Urinary Tract Infection complicated by neurogenic bladder w/ self-catheterization regimen with associated #2: Will admit to [facility] upon ED evaluation remarkable, pending UCx, continue IVFs, monitor I/Os, continue home catheterization regimen, continue IV Rocephin w/ transition as able pending sensitivities and speciation especially given review of most recent urine cultures 01/01/2020 noted Citrobacter 58805,000 colony-forming units with fraire sensitivity except resistance to cefazolin, 01/23/2018 enterococcal with significant resistance patterns with only sensitivities to gentamicin, linezolid, streptomycin and vancomycin. Give history of c-difficile colitis will also place on lactobacillis while on abx therapy. #2. Acute kidney injury on Hx ESRD previously on HD s/p Renal Txp 3-4 years prior at [facility] with now CKD stage III unclear subtype, Neurogenic bladder w/ self-cath regimen: Secondary to suspected urinary tract infection as noted. Admission BUN/Cr 48/2.82, prior baseline creatinine noted to be primarily 1.4- 1.6, will judiciously hydrate, hold nephrotoxic medications and repeat chemistry in AM. Renal ultrasound per ED with right transplant kidney measuring 9.5 x 4.6 x 3.6 cm with no hydronephrosis or solid or cystic masses involving the renal allograft nor any perinephric fluid collections, left [place] kidney small and hyperdense consistent with sequelae of medical renal disease with a left renal cyst noted. Tacrolimus level pending per ED, continue patient home mycophenolate regimen given that patient does not currently appear septic but low threshold to temporarily hold if worsened status. Nephrology consulted. Pending [place], UCr, protein+creatinine radtio, urine. #3. Chronic anemia, normocytic/AOCD: Admission hemoglobin 9.7, prior baseline appears 10-11, continue to trend. #4. Chronic thrombocytopenia/leukopenia (pancytopenia), unclear specific etiology: Admission platelets 116, prior baseline 90-120. Admission WBC 3.2 with prior trends since December similar, will repeat CBC in AM. #5. Hypertension: Continue home regimen including amlodipine, PRN hydralazine. #6. History of VTE: Patient with prior history DVT, PE, not chronically anticoagulated currently, previously had been on Xarelto. #7. Chronic MRDD, congenital nystagmus, as noted #2 neurogenic bladder with renal disease associated: We will maintain on fall precautions, continue catheterization regimen per his usual home regimen as noted above #8. DVT prophylaxis: SCDs, heparin cautiously monitoring platelets. #9. CODE status: Patient CASSI is his mother who is present and living will is currently in place. His sister is also present with her spouse and has been his primary caregiver through the years. Discussed CODE status at length including difference between FULL code, DNR-CCA and DNR-CC status. Following discussions about the differences in these status, requested Full Code status. Advanced Care Planning Face to Face Time: 16 minutes. Charges/Coding Visit Charges Inpatient E&M: 67152 Init Hosp L3 Procedures Hospitalists Procedures: 37005 Advncd Care Plan 30 Min
[2022-02-13 21:03] LABS: Protein, Urine (Random) 53.2 mg/dL (<11.9); Protein:Creat Ratio 229 mg/g CRE (0-200); Urine Sodium 16 mmol/L (Not Establ.)
[2022-02-13 21:05] VITALS: BP 103/58; PULSE 77; RESP 18; TEMP 36.8; O2SAT 97
[2022-02-13 21:27] VITALS: BMI 19.1
[2022-02-13 21:30] VITALS: BP 110/63; PULSE 78; RESP 20; TEMP 36.4; O2SAT 100
[2022-02-13 21:31] VITALS: BP 110/63; PULSE 78; RESP 20; TEMP 36.4; O2SAT 100
[2022-02-13] MEDS: 0.9% Normal Saline 1,000 ML 125 ML IV (22:25)
[2022-02-13] MEDS: Multivitamins,Therapeutic Tablet 1 TABLET PO (22:28)
[2022-02-13] MEDS: Tacrolimus 0.5 MG Capsule PO (22:28)
[2022-02-13] MEDS: Heparin Injection (Vial) 5,000 UNIT/ML VIAL 5000 UNIT SC (22:28)
[2022-02-13] MEDS: amLODIPine 5 MG Tablet PO (22:28)
[2022-02-13] MEDS: Mycophenolate Mofetil 250 MG Capsule 500 MG PO (22:28)
[2022-02-13] MEDS: Sodium Bicarbonate 650 MG Tablet PO (22:28)
[2022-02-13] MEDS: Tacrolimus Anhydrous 1 MG Capsule PO (22:28)
[2022-02-13] MEDS: Senna/Docusate Sodium 1 Tablet 2 TABLET PO (22:28)
[2022-02-14 02:45] VITALS: BP 101/63; PULSE 77; RESP 18; TEMP 36.6; O2SAT 100
--- NOTE | 2022-02-14 04:04 | PCM.HOSP.N ---
Hospitalist Note Patient with several attempts for catheterization without success. Will consult Dr. Dennis who has seen the patient prior. He notes intention to present early this AM to place catheter.
--- NOTE | 2022-02-14 04:08 | NURSING ---
unable to insert st cath x4 attempts via RNs, pt himself tried to self cath and was unsuccessful. notified, and consult to Jeannie was made per
[2022-02-14] MEDS: 0.9% Normal Saline 1,000 ML 125 ML IV ×2 (05:31→13:38)
[2022-02-14] MEDS: Sodium Bicarbonate 650 MG Tablet PO ×3 (05:32→20:42)
[2022-02-14 06:32] LABS: Absolute Lymphocyte Count 0.44 X10^3/uL (0.83-4.51); Absolute Neutrophil Count 1.8 X10^3/uL (2.0-7.7); Basophil# 0.01 X10^3/uL; Basophil% 0.4 % (0-1); Eosinophil# 0.04 X10^3/uL; Eosinophils% 1.5 % (0-5); Hematocrit 26.1 % (40-54); Hemoglobin 8.7 g/dL (13.0-16.5); Lymphocyte # 0.44 X10^3/ul (0.83-4.51); Lymphocyte % 16.7 % (19-41); Mean Corp Hgb Conc 33.3 g/dL (32-36); Mean Corpuscular Hgb 30.2 pg (27.0-32.0); Mean Corpuscular Volume 90.6 fL (80-94); Monocyte# 0.35 X10^3/uL; Monocyte% 13.3 % (0-10); NRBC Flagged by Analyzer 0 % (0-5); Neutrophil # 1.78 X10^3/uL (2.7-7.7); Neutrophil % 67.7 % (47-70); POSITIVE COUNT YES; POSITIVE DIFFERENTIAL YES; Platelet Count 95 K/mm3 (150-450); RBC Distribution Width CV 14.3 % (11.6-14.6); RBC Distribution Width SD 47.5 fl (35.1-43.9); Red Blood Count 2.88 M/mm3 (4.6-6.2); White Blood Count 2.6 K/mm3 (4.4-11.0)
[2022-02-14 06:54] LABS: Differential Indicated SCAN CRITERIA MET
[2022-02-14 07:03] LABS: Differential Comment SCANNED
[2022-02-14 07:04] LABS: Ovalocyte RARE; Platelet Estimate SLT DEC (ADEQ)
[2022-02-14 07:08] LABS: AST(SGOT) 29 U/L (15-37); Alanine Aminotransfer ALT/SGPT 41 U/L (16-61); Albumin, Serum 2.7 g/dL (3.2-5.0); Alkaline Phosphatase 110 U/L (45-117); Anion Gap 9 (5-15); BUN 46 mg/dL (7-18); BUN/Creat Ratio 19.9 RATIO (10-20); Calcium,Total 7.6 mg/dL (8.5-10.1); Chloride 120 mmol/L (98-107); Creatinine, Serum 2.31 mg/dL (0.70-1.30); EST Glomerular Filtration Rate 31 mL/min (>60); Est Glom Filt Rate - Afr Amer 38 mL/min (>60); Estimated Creatinine Clearance 35.06 ml/min; Globulin 2.8 g/dL (2.2-4.2); Glucose 91 mg/dL (74-106); Potassium 4.2 mmol/L (3.5-5.1); Protein, Total 5.5 g/dL (6.4-8.2); Sodium Level 145 mmol/L (136-145)
--- NOTE | 2022-02-14 07:19 | CON.PCM.UR_ITS ---
HPI Consult Data Date of Consult: 02/14/22 HPI Narrative HPI Narrative: ROOSEVELT GARCIA, is a 56 M who presents to [facility] fevers and chills apparently has a urinary tract infection was admitted and is currently on antibiotics patient typically self caths at home. He has a history of an atonic stretched out bladder. Has a history of kidney transplant. Today at the bedside I had to do a mild dilation of the urethral stricture that he has and placement of a 16 [place] sleetmute tip catheter. He will need to go home with a catheter after he improves from his urinary tract infection give me a call if you have any questions. [facility] Medical History Anemia Bronchitis CKD (chronic kidney disease), stage III Congenital nystagmus DVT (deep venous thrombosis) HTN (hypertension) Mild intellectual disability Neurogenic bladder disorder Pancytopenia Pulmonary embolism Urinary retention Vocal cord dysfunction Home Medications mycophenolate mofetil 500 mg tablet 500 mg PO 0900,2100 Anti-Rejection 07/14/16 [History Last Taken 02/13/22] amlodipine 5 mg tablet 5 mg PO QHS BLOOD PRESSURE 09/29/17 [History Last Taken 02/12/22] tacrolimus 1 mg capsule, immediate-release 1 mg PO 0900,2100 ANTI-REJECTION 01/11/18 [History Last Taken 02/13/22] sennosides 8.6 mg-docusate sodium 50 mg tablet (Stool Softener-Stimulant Laxative) 2 tab PO BID ##120 01/25/18 [Rx Last Taken Unknown] multivitamin 1 tab PO QHS 02/13/22 [History Last Taken 02/12/22] sodium bicarbonate 650 mg tablet 650 mg PO TID 02/13/22 [History Last Taken 02/13/22] tacrolimus 0.5 mg capsule, immediate-release 0.5 mg PO 0900,2100 anti rejection 02/13/22 [History Last Taken 02/13/22] Allergy/AdvReac Type Severity Reaction Status Date / Time anything red AdvReac Hives Uncoded 02/13/22 21:33 Family History (Updated 02/13/22 @ 19:[address] Jesica Russo MD) Mother Hypertension Father Diabetes Surgical History Kidney transplant recipient Renal transplant, status post S/P arteriovenous (AV) fistula creation Social History Smoking Status: Never smoker second hand exposure: No alcohol intake: never substance use type: does not use caffeine: No Lab / Micro Data Result Diagrams: 02/14/22 06:07 02/14/22 06:07 Labs: Laboratory Results - last 24 hr 02/13/22 17:55: Sodium 144, Potassium 3.9, Chloride 115 H, Carbon Dioxide 18.0 L , BUN 48 H, Creatinine 2.82 H, Estim Creat Clear Calc 20.42, Est GFR (MDRD) Af Amer 30 L, Est GFR (MDRD) Non-Af 25 L, BUN/Creatinine Ratio 17.0, Glucose 129 H, Calcium 8.2 L, Phosphorus 3.4, Albumin 3.4 02/13/22 17:55: WBC 3.2 L, RBC 3.15 L, Hgb 9.7 L, Hct 28.6 L, MCV 90.8, MCH 30.8, MCHC 33.9, RDW Std Deviation 47.7 H, RDW Coeff of Anil 14.4, Plt Count 116 L, MPV 10.7, Immature Gran % (Auto) 0.300, Neut % (Auto) 59.3, Lymph % (Auto) 19.7, [place] % (Auto) 17.8 H, Eos % (Auto) 1.9, Baso % (Auto) 1.0, Absolute Neuts (auto) 1.9 L, Absolute Lymphs (auto) 0.62 L, Nucleated RBC % 0 02/13/22 19:05: Urine Color Yellow, Urine Clarity Cloudy, Urine pH 5.0, Ur Specific [place] 1.020, Urine Protein 30 H, Urine Glucose (UA) Normal, Urine Ketones Negative, Urine Occult Blood 250 H, Urine Nitrite Negative, Urine Bilirubin Negative, Urine Urobilinogen Normal, Ur Leukocyte Esterase 500 H, Urine RBC > 100 SEEN, Urine WBC >100 SEEN, Ur Squamous Epith Cells 0-5 SEEN, Urine Bacteria 4+, Urine Mucus 0 SEEN 02/13/22 19:05: U Random Total Protein 53.2 H, Ur Random Sodium 16, Urine Creatinine 232.00, Protein/Creatinin Ratio 229 H 02/13/22 19:05: Urine Creatinine 229.00 02/14/22 06:07: WBC 2.6 L, RBC 2.88 L, Hgb 8.7 L, Hct 26.1 L, MCV 90.6, MCH 30.2, MCHC 33.3, RDW Std Deviation 47.5 H, RDW Coeff of Anil 14.3, Plt Count 95 L , MPV 11.0, Immature Gran % (Auto) 0.400, Neut % (Auto) 67.7, Lymph % (Auto) 16.7 L, [place] % (Auto) 13.3 H, Eos % (Auto) 1.5, Baso % (Auto) 0.4, Absolute Neuts (auto) 1.8 L, Absolute Lymphs (auto) 0.44 L, Nucleated RBC % 0, Differential Comment SCANNED, Diff Path Review August, Platelet Estimate SLT DEC, Ovalocytes RARE 02/14/22 06:07: Sodium 145, Potassium 4.2, Chloride 120 H, Carbon Dioxide 16.0 L , Anion Gap 9, BUN 46 H, Creatinine 2.31 H, Estim Creat Clear Calc 35.06, Est GFR (MDRD) Af Amer 38 L, Est GFR (MDRD) Non-Af 31 L, BUN/Creatinine Ratio 19.9, Glucose 91, Calcium 7.6 L, Total Bilirubin 1.20 H, AST 29, ALT 41, Alkaline Phosphatase 110, Total Protein 5.5 L, Albumin 2.7 L, Globulin 2.8, Albumin/Globulin Ratio 1.0 Rhythm Strip Rhythm Strip: Sinus Rhythm Rate: 85 Ectopy: None Radiology Impression Renal Ultrasound 02/13/22 19:23 IMPRESSION: 1. RIGHT transplant kidney measures 9.5 x 4.6 x 3.6 cm. No hydronephrosis or solid or cystic masses involving the renal allograft. No perinephric fluid collections. 2. LEFT [place] kidney is small and hyperdense consistent with sequelae medical renal disease. A LEFT renal cyst is noted. RIGHT [place] kidney is not demonstrated. Electronically Signed: Sulaiman Dowd MD at 20:16 EDT ,
[2022-02-14] MEDS: Mycophenolate Mofetil 250 MG Capsule 500 MG PO ×2 (08:33→20:42)
[2022-02-14] MEDS: Senna/Docusate Sodium 1 Tablet 2 TABLET PO ×2 (08:34→20:43)
[2022-02-14] MEDS: Tacrolimus Anhydrous 1 MG Capsule PO ×2 (08:34→20:42)
[2022-02-14] MEDS: Heparin Injection (Vial) 5,000 UNIT/ML VIAL 5000 UNIT SC ×2 (08:35→20:42)
[2022-02-14] MEDS: Ondansetron 4 MG/2 ML Vial IV (08:39)
[2022-02-14] MEDS: Tacrolimus 0.5 MG Capsule PO ×2 (08:43→20:42)
[2022-02-14 09:06] VITALS: BP 100/65; PULSE 84; RESP 16; TEMP 37; O2SAT 100
[2022-02-14 11:59] VITALS: BP 115/75; PULSE 89; RESP 16; TEMP 36.7; O2SAT 100
--- NOTE | 2022-02-14 13:13 | CASEMGMT ---
JASMEET PINTO in to discuss discharge planning, patient states he is from the [facility] with assistance with care. JASMEET PINTO updated SW and hospitalist is from the [facility].
--- NOTE | 2022-02-14 13:52 | PN.HOSP_ITS ---
Subjective Subjective Patient was seen and examined today, urology had to place a Ga catheter and the patient earlier this morning. Patient's labs this morning revealed a low white cell count at 2.6, hemoglobin was 8.7, creatinine was 2.31 and BUN was 46. Bilirubin was slightly elevated at 1.2. Objective Data Objective Data Vital Signs: Vital Signs Temp Pulse Resp BP Pulse Ox O2 Del Method 98.1 F 89 16 115/75 100 Room Air 02/14/22 11:59 02/14/22 11:59 02/14/22 11:59 02/14/22 11:59 02/14/22 11:59 02/14/22 11:59 Oxygen Delivery Method Room Air Weight: 67.8 kg Body Mass Index (BMI) 19.1 Intake & Output: Intake and Output for Last 24 Hours 02/12/22 02/13/22 02/14/22 23:59 23:59 23:59 Intake Total 50 / 50 2187.5 / 2187.5 Output Total 0 / 0 800 / 800 Balance 50 / 50 1387.5 / 1387.5 Lab / Micro Data Result Diagrams: 02/14/22 06:07 02/14/22 06:07 Labs: Laboratory Results - last 24 hr 02/13/22 17:55: Sodium 144, Potassium 3.9, Chloride 115 H, Carbon Dioxide 18.0 L , BUN 48 H, Creatinine 2.82 H, Estim Creat Clear Calc 20.42, Est GFR (MDRD) Af Amer 30 L, Est GFR (MDRD) Non-Af 25 L, BUN/Creatinine Ratio 17.0, Glucose 129 H, Calcium 8.2 L, Phosphorus 3.4, Albumin 3.4 02/13/22 17:55: WBC 3.2 L, RBC 3.15 L, Hgb 9.7 L, Hct 28.6 L, MCV 90.8, MCH 30.8, MCHC 33.9, RDW Std Deviation 47.7 H, RDW Coeff of Anil 14.4, Plt Count 116 L, MPV 10.7, Immature Gran % (Auto) 0.300, Neut % (Auto) 59.3, Lymph % (Auto) 19.7, [place] % (Auto) 17.8 H, Eos % (Auto) 1.9, Baso % (Auto) 1.0, Absolute Neuts (auto) 1.9 L, Absolute Lymphs (auto) 0.62 L, Nucleated RBC % 0 02/13/22 19:05: Urine Color Yellow, Urine Clarity Cloudy, Urine pH 5.0, Ur Specific [place] 1.020, Urine Protein 30 H, Urine Glucose (UA) Normal, Urine Ketones Negative, Urine Occult Blood 250 H, Urine Nitrite Negative, Urine Bilirubin Negative, Urine Urobilinogen Normal, Ur Leukocyte Esterase 500 H, Urine RBC > 100 SEEN, Urine WBC >100 SEEN, Ur Squamous Epith Cells 0-5 SEEN, Urine Bacteria 4+, Urine Mucus 0 SEEN 02/13/22 19:05: U Random Total Protein 53.2 H, Ur Random Sodium 16, Urine Creatinine 232.00, Protein/Creatinin Ratio 229 H 02/13/22 19:05: Urine Creatinine 229.00 02/14/22 06:07: WBC 2.6 L, RBC 2.88 L, Hgb 8.7 L, Hct 26.1 L, MCV 90.6, MCH 30.2, MCHC 33.3, RDW Std Deviation 47.5 H, RDW Coeff of Anil 14.3, Plt Count 95 L , MPV 11.0, Immature Gran % (Auto) 0.400, Neut % (Auto) 67.7, Lymph % (Auto) 16.7 L, [place] % (Auto) 13.3 H, Eos % (Auto) 1.5, Baso % (Auto) 0.4, Absolute Neuts (auto) 1.8 L, Absolute Lymphs (auto) 0.44 L, Nucleated RBC % 0, Differential Comment SCANNED, Diff Path Review May foll, Platelet Estimate SLT DEC, Ovalocytes RARE 02/14/22 06:07: Sodium 145, Potassium 4.2, Chloride 120 H, Carbon Dioxide 16.0 L , Anion Gap 9, BUN 46 H, Creatinine 2.31 H, Estim Creat Clear Calc 35.06, Est GFR (MDRD) Af Amer 38 L, Est GFR (MDRD) Non-Af 31 L, BUN/Creatinine Ratio 19.9, Glucose 91, Calcium 7.6 L, Total Bilirubin 1.20 H, AST 29, ALT 41, Alkaline Phosphatase 110, Total Protein 5.5 L, Albumin 2.7 L, Globulin 2.8, Albumin/Globulin Ratio 1.0 Micro: Microbiology 02/13/22 19:05 Urine, Clean Catch Urine Culture - Preliminary GNR lactose carpenter general Radiography Diagnostic Testing: Radiology Impression Renal Ultrasound 02/13/22 19:23 IMPRESSION: 1. RIGHT transplant kidney measures 9.5 x 4.6 x 3.6 cm. No hydronephrosis or solid or cystic masses involving the renal allograft. No perinephric fluid collections. 2. LEFT [place] kidney is small and hyperdense consistent with sequelae medical renal disease. A LEFT renal cyst is noted. RIGHT [place] kidney is not demonstrated. Electronically Signed: Sulaiman Dowd MD at 20:16 EDT , Rhythm Strip Rhythm Strip: Sinus Rhythm Rate: 85 Ectopy: None Physical Exam Const alert, oriented x3 and no apparent distress Constitutional Narrative: Patient has evidence of chronic cognitive impairment but is able to communicate and answer questions appropriately General Appearance: cooperative, well kempt and well developed Orientation / Consciousness: awake, oriented to person and oriented to place HEENT normocephalic, head/scalp atraumatic and moist oral mucous membranes Eyes PERRL, EOMs intact bilaterally and conjunctivae normal Neck supple, no JVD, thyroid normal and no carotid bruits General: trachea midline Resp normal respiratory effort, no retractions, no use of accessory muscles and clear to auscultation bilaterally Auscultation: Negative for rales, rhonchi or wheezes Cardio regular rate, regular rhythm, S1 normal heart sound, S2 normal heart sound, no murmurs, no rub and no gallops GI normal to inspection, nondistended, normoactive bowel sounds, soft to palpation, non-tender and non-distended Extremity no clubbing, cyanosis or edema Skin no rashes or lesions noted General Skin Exam: no breakdown Neuro oriented x3, CN's II-XII intact bilaterally, no focal motor deficits and no sensory deficits noted Sensorium / Orientation: awake, alert, oriented to person and oriented to place Psych Psych Narrative: Patient shows evidence of chronic cognitive impairment Assessment & Plan Assessment/Plan (1) CKD (chronic kidney disease), stage III: PLAN: Plan 1. Acute urinary tract infection as a consequence of chronic neurogenic bladder with [id number] IV antibiotics, labs will be monitored #2 acute kidney injury on a backdrop of chronic kidney disease stage IIIb- continue IV fluids, monitor lab #3 MRDD-complicates care, management, recovery, and prognosis, patient lives in assisted living at this time #4 Anemia secondary to chronic renal disease-patient does not require transfusion at this time, labs will be monitored #5 past history of renal transplant-patient will remain on his antirejection drugs, he will need follow-up with his custodial supervisor after he is discharged from the hospital, nephrology has been consulted to see the patient Charges/Coding Visit Charges Inpatient E&M: 26309 Subs Hosp L2
[2022-02-14 15:16] VITALS: BP 99/61; PULSE 81; RESP 16; TEMP 36.7; O2SAT 99
--- NOTE | 2022-02-14 15:41 | CM.ED ---
SW called Kate at the [facility]. Patient is at Assisted Living at [facility]. JASMEET PINTO updated. Rachel CLOUD
--- NOTE | 2022-02-14 16:38 | PCM.CONS.R ---
Assessment & Plan Assessment/Plan (1) Renal transplant, status post: (2) Neurogenic bladder disorder: (3) Acute UTI: (4) PRISCILLA (acute kidney injury): PLAN: Plan Assessment Very pleasant 56-year-old gentleman history of end-stage renal disease status post renal transplant 2016, atonic bladder requiring self-catheterization admitted to the hospital due to decreased urinary output and acute kidney injury. #1 acute kidney injury on chronic kidney disease -Baseline serum creatinine appears to be around 1.4 to 1.7 mg/dL -Serum creatinine peaked at 2.8 mg/dL and improved with volume expansion treating for urinary tract infection -Currently nonoliguric, Ga in place with excellent urinary output #2 renal transplant 2016 -Has been maintained on mycophenolate and tacrolimus -There have been issues with his tacrolimus level recently -Currently on tacrolimus 1.5 mg twice daily with mycophenolate 500 mg twice daily -Dose medication to achieve serum tacrolimus level around 6ng/mL #3 atonic bladder -Evaluate urology status post Ga catheter placement #4 urinary tract infection -This has been a recurrent problem awaiting culture currently on Rocephin Plan -Await Prograf level -Continue with current immunosuppression regimen -Change IV fluid to half-normal saline at 75 cc an hour -BMP in the morning. If serum creatinine is less than 2.3 mg/dL tomorrow can be discharged from renal standpoint with close follow-up in the office Thank you please call [phone] with any concerns HPI Consult Data Date of Consult: 02/14/22 HPI Narrative Reason for Consultation: Acute kidney injury and chronic kidney disease in setting of renal transpla HPI Narrative: ROOSEVELT GARCIA, is a 56 M who with history of renal transplant done at [facility] in 2016. Patient sees my partner Dr. Beach Baseline serum creatinine has been around 1.5 to 1.7 mg/dL. Patient has neurogenic bladder requiring intermittent self-catheterization for quite some time now. Patient states that he is in between finding new urologist. He presents to the hospital due to decreased urinary output found to have acute kidney injury with a urinary tract infection. Nephrology is consulted for acute kidney injury in setting of renal transplant. On today's encounter patient mother is at bedside who provides most of the history. He is currently tolerating p.o. intake getting IV fluids. And being treated for urinary tract infection. Past medical, surgical, family, social history reviewed 12 view of systems negative other than stated above [facility] Medical History Anemia Bronchitis CKD (chronic kidney disease), stage III Congenital nystagmus DVT (deep venous thrombosis) HTN (hypertension) Mild intellectual disability Neurogenic bladder disorder Pancytopenia Pulmonary embolism Urinary retention Vocal cord dysfunction Home Medications mycophenolate mofetil 500 mg tablet 500 mg PO 0900,2100 Anti-Rejection 07/14/16 [History Last Taken 02/13/22] amlodipine 5 mg tablet 5 mg PO QHS BLOOD PRESSURE 09/29/17 [History Last Taken 02/12/22] tacrolimus 1 mg capsule, immediate-release 1 mg PO 0900,2099 ANTI-REJECTION 01/11/18 [History Last Taken 02/13/22] sennosides 8.6 mg-docusate sodium 50 mg tablet (Stool Softener-Stimulant Laxative) 2 tab PO BID ##120 01/25/18 [Rx Last Taken Unknown] multivitamin 1 tab PO QHS 02/13/22 [History Last Taken 02/12/22] sodium bicarbonate 650 mg tablet 650 mg PO TID 02/13/22 [History Last Taken 02/13/22] tacrolimus 0.5 mg capsule, immediate-release 0.5 mg PO 0900,2099 anti rejection 02/13/22 [History Last Taken 02/13/22] Allergy/AdvReac Type Severity Reaction Status Date / Time anything red AdvReac Hives Uncoded 02/13/22 21:33 Family History (Updated 02/13/22 @ 19:[address] Jesica Russo MD) Mother Hypertension Father Diabetes Surgical History Kidney transplant recipient Renal transplant, status post S/P arteriovenous (AV) fistula creation Social History Smoking Status: Never smoker second hand exposure: No alcohol intake: never substance use type: does not use caffeine: No Physical Exam Narrative Pleasant awake and responsive answers question no acute distress Normocephalic atraumatic Oral mucosa is moist S1-S2 regular Breath sounds equal anteriorly Abdomen is nontender No peripheral edema Ga catheter present with yellow urine Medical Records Data Attestation: I reviewed the patient's medical records Lab / Micro Data Result Diagrams: 02/14/22 06:07 02/14/22 06:07 Labs: Laboratory Results - last 24 hr 02/13/22 17:55: Sodium 144, Potassium 3.9, Chloride 115 H, Carbon Dioxide 18.0 L, BUN 48 H, Creatinine 2.82 H, Estim Creat Clear Calc 20.42, Est GFR (MDRD) Af Amer 30 L, Est GFR (MDRD) Non-Af 25 L, BUN/Creatinine Ratio 17.0, Glucose 129 H, Calcium 8.2 L, Phosphorus 3.4, Albumin 3.4 02/13/22 17:55: WBC 3.2 L, RBC 3.15 L, Hgb 9.7 L, Hct 28.6 L, MCV 90.8, MCH 30.8, MCHC 33.9, RDW Std Deviation 47.7 H, RDW Coeff of Anil 14.4, Plt Count 116 L, MPV 10.7, Immature Gran % (Auto) 0.300, Neut % (Auto) 59.3, Lymph % (Auto) 19.7, [place] % (Auto) 17.8 H, Eos % (Auto) 1.9, Baso % (Auto) 1.0, Absolute Neuts (auto) 1.9 L, Absolute Lymphs (auto) 0.62 L, Nucleated RBC % 0 02/13/22 19:05: Urine Color Yellow, Urine Clarity Cloudy, Urine pH 5.0, Ur Specific [place] 1.020, Urine Protein 30 H, Urine Glucose (UA) Normal, Urine Ketones Negative, Urine Occult Blood 250 H, Urine Nitrite Negative, Urine Bilirubin Negative, Urine Urobilinogen Normal, Ur Leukocyte Esterase 500 H, Urine RBC > 100 SEEN, Urine WBC >100 SEEN, Ur Squamous Epith Cells 0-5 SEEN, Urine Bacteria 4+, Urine Mucus 0 SEEN 02/13/22 19:05: U Random Total Protein 53.2 H, Ur Random Sodium 16, Urine Creatinine 232.00, Protein/Creatinin Ratio 229 H 02/13/22 19:05: Urine Creatinine 229.00 02/14/22 06:07: WBC 2.6 L, RBC 2.88 L, Hgb 8.7 L, Hct 26.1 L, MCV 90.6, MCH 30.2, MCHC 33.3, RDW Std Deviation 47.5 H, RDW Coeff of Anil 14.3, Plt Count 95 L, MPV 11.0, Immature Gran % (Auto) 0.400, Neut % (Auto) 67.7, Lymph % (Auto) 16.7 L, [place] % (Auto) 13.3 H, Eos % (Auto) 1.5, Baso % (Auto) 0.4, Absolute Neuts (auto) 1.8 L, Absolute Lymphs (auto) 0.44 L, Nucleated RBC % 0, Differential Comment SCANNED, Diff Path Review August foll, Platelet Estimate SLT DEC, Ovalocytes RARE 02/14/22 06:07: Sodium 145, Potassium 4.2, Chloride 120 H, Carbon Dioxide 16.0 L, Anion Gap 9, BUN 46 H, Creatinine 2.31 H, Estim Creat Clear Calc 35.06, Est GFR (MDRD) Af Amer 38 L, Est GFR (MDRD) Non-Af 31 L, BUN/Creatinine Ratio 19.9, Glucose 91, Calcium 7.6 L, Total Bilirubin 1.20 H, AST 29, ALT 41, Alkaline Phosphatase 110, Total Protein 5.5 L, Albumin 2.7 L, Globulin 2.8, Albumin/Globulin Ratio 1.0 Micro: Microbiology 02/13/22 19:05 Urine, Clean Catch 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 RIGHT transplant kidney measures 9.5 x 4.6 x 3.6 cm. No hydronephrosis or solid or cystic masses involving the renal allograft. No perinephric fluid collections. 2. LEFT [place] kidney is small and hyperdense consistent with sequelae medical renal disease. A LEFT renal cyst is noted. RIGHT [place] kidney is not demonstrated. Electronically Signed: Sulaiman Dowd MD at 20:16 EDT ,
[2022-02-14] MEDS: Ceftriaxone 1 GM/50 ML BAG IV (20:38)
[2022-02-14 20:40] VITALS: BP 103/65; PULSE 79; RESP 18; TEMP 37.3; O2SAT 99
[2022-02-14] MEDS: Acetaminophen 325 MG Tablet 650 MG PO (20:42)
[2022-02-14] MEDS: amLODIPine 5 MG Tablet PO (20:43)
[2022-02-14 20:45] VITALS: BP 103/65; PULSE 79; RESP 18; TEMP 37.3; O2SAT 99
[2022-02-14] MEDS: 0.45% Normal Saline 1,000 ML 75 ML IV (22:11)
[2022-02-15] VITALS (9 sets, daily range): BP systolic 93–108; BP diastolic 55–69; PULSE 75–78; RESP 16–18; TEMP 36.6–37.4; O2SAT 95–99
[2022-02-15] MEDS: Sodium Bicarbonate 650 MG Tablet PO ×3 (05:33→20:42)
[2022-02-15 06:58] LABS: Anion Gap 10 (5-15); BUN 40 mg/dL (7-18); BUN/Creat Ratio 19.1 RATIO (10-20); Calcium,Total 7.3 mg/dL (8.5-10.1); Chloride 120 mmol/L (98-107); Creatinine, Serum 2.09 mg/dL (0.70-1.30); EST Glomerular Filtration Rate 35 mL/min (>60); Est Glom Filt Rate - Afr Amer 43 mL/min (>60); Estimated Creatinine Clearance 41.03 ml/min; Glucose 88 mg/dL (74-106); Potassium 4.2 mmol/L (3.5-5.1); Sodium Level 145 mmol/L (136-145)
[2022-02-15] MEDS: Tacrolimus 0.5 MG Capsule PO ×2 (07:31→20:42)
[2022-02-15] MEDS: Mycophenolate Mofetil 250 MG Capsule 500 MG PO ×2 (07:31→20:42)
[2022-02-15] MEDS: Tacrolimus Anhydrous 1 MG Capsule PO ×2 (07:32→20:42)
[2022-02-15] MEDS: Senna/Docusate Sodium 1 Tablet 2 TABLET PO (07:32)
[2022-02-15] MEDS: Heparin Injection (Vial) 5,000 UNIT/ML VIAL 5000 UNIT SC ×2 (07:32→20:40)
[2022-02-15] MEDS: 0.45% Normal Saline 1,000 ML 75 ML IV ×2 (11:37→20:41)
[2022-02-15] MEDS: Acetaminophen 325 MG Tablet 650 MG PO (11:37)
--- NOTE | 2022-02-15 12:16 | PN.HOSP_ITS ---
Subjective Subjective Patient was seen and examined today, he continues to have urine output and his creatinine is down to 2.09 at the present time. I will repeat his labs tomorrow, he may be stable for discharge to his assisted living facility tomorrow, the patient will have to be taught to drain his Ga catheter bag. I talked to Dr. Dennis today, he states he would like the patient to be discharged with the Ga and follow-up in his office in approximately a week. Objective Data Objective Data Vital Signs: Vital Signs Temp Pulse Resp BP Pulse Ox O2 Del Method 98 F 78 16 100/65 98 Room Air 02/15/22 11:40 02/15/22 11:40 02/15/22 11:40 02/15/22 11:40 02/15/22 11:40 02/15/22 11:40 Oxygen Delivery Method Room Air Weight: 71.8 kg Body Mass Index (BMI) 19.1 Intake & Output: Intake and Output for Last 24 Hours 02/13/22 02/14/22 02/15/22 23:59 23:59 23:59 Intake Total 50 / 50 3572.92 / 3572.92 1400 / 1400 Output Total 0 / 0 1100 / 1375 1475 / 1475 Balance 50 / 50 2472.92 / 2197.92 -75 / -75 Lab / Micro Data Result Diagrams: 02/14/22 06:07 02/15/22 05:45 Labs: Laboratory Results - last 24 hr 02/15/22 05:45: Sodium 145, Potassium 4.2, Chloride 120 H, Carbon Dioxide 15.0 L , Anion Gap 10, BUN 40 H, Creatinine 2.09 H, Estim Creat Clear Calc 41.03, Est GFR (MDRD) Af Amer 43 L, Est GFR (MDRD) Non-Af 35 L, BUN/Creatinine Ratio 19.1, Glucose 88, Calcium 7.3 L Micro: Microbiology 02/13/22 19:05 Urine, Clean Catch Urine Culture - Final Escherichia coli Rhythm Strip Rhythm Strip: Sinus Rhythm Rate: 85 Ectopy: None Physical Exam Narrative alert, oriented x3 and no apparent distress Constitutional Narrative: Patient has evidence of chronic cognitive impairment but is able to communicate and answer questions appropriately General Appearance: cooperative, well kempt and well developed Orientation / Consciousness: awake, oriented to person and oriented to place HEENT normocephalic, head/scalp atraumatic and moist oral mucous membranes Eyes PERRL, EOMs intact bilaterally and conjunctivae normal Neck supple, no JVD, thyroid normal and no carotid bruits General: trachea midline Resp normal respiratory effort, no retractions, no use of accessory muscles and clear to auscultation bilaterally Auscultation: Negative for rales, rhonchi or wheezes Cardio regular rate, regular rhythm, S1 normal heart sound, S2 normal heart sound, no murmurs, no rub and no gallops GI normal to inspection, nondistended, normoactive bowel sounds, soft to palpation, non-tender and non-distended Extremity no clubbing, cyanosis or edema Skin no rashes or lesions noted General Skin Exam: no breakdown Neuro oriented x3, CN's II-XII intact bilaterally, no focal motor deficits and no sensory deficits noted Sensorium / Orientation: awake, alert, oriented to person and oriented to place Psych Psych Narrative: Patient shows evidence of chronic cognitive impairment Assessment & Plan Assessment/Plan (1) CKD (chronic kidney disease), stage III: PLAN: Plan 1. Acute urinary tract infection with E. coli as a consequence of chronic neurogenic bladder with [id number] IV antibiotics, labs will be monitored, patient will need a course of oral antibiotics for 5 days after discharge from the hospital. 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 Patient may need follow-up with oncology as an outpatient. I did talk briefly to Dr. Bella who is his family doctor today and he is aware that the patient will need follow-up regarding his pancytopenia. Charges/Coding Visit Charges Inpatient E&M: 92446 Subs Hosp L2
[2022-02-15] MEDS: Ceftriaxone 1 GM/50 ML BAG IV (20:41)
[2022-02-15] MEDS: amLODIPine 5 MG Tablet PO (20:42)
[2022-02-15] MEDS: 0.9% Saline Lock 10 ML Syringe IV (20:59)
[2022-02-15] MEDS: Ondansetron 4 MG/2 ML Vial IV (20:59)
[2022-02-16 03:00] VITALS: BP 107/69; PULSE 70; RESP 18; TEMP 36.3; O2SAT 98
[2022-02-16 05:01] LABS: Absolute Lymphocyte Count 0.57 X10^3/uL (0.83-4.51); Absolute Neutrophil Count 1.3 X10^3/uL (2.0-7.7); Basophil# 0.01 X10^3/uL; Basophil% 0.4 % (0-1); Eosinophil# 0.09 X10^3/uL; Eosinophils% 3.8 % (0-5); Hematocrit 27.3 % (40-54); Hemoglobin 8.9 g/dL (13.0-16.5); Lymphocyte # 0.57 X10^3/ul (0.83-4.51); Lymphocyte % 24.3 % (19-41); Mean Corp Hgb Conc 32.6 g/dL (32-36); Mean Corpuscular Hgb 30.2 pg (27.0-32.0); Mean Corpuscular Volume 92.5 fL (80-94); Mean Platelet Vol. 11.2 fl (6.2-12.0); Monocyte# 0.39 X10^3/uL; Monocyte% 16.6 % (0-10); NRBC Flagged by Analyzer 0 % (0-5); Neutrophil # 1.28 X10^3/uL (2.7-7.7); Neutrophil % 54.5 % (47-70); POSITIVE COUNT YES; POSITIVE DIFFERENTIAL YES; Platelet Count 88 K/mm3 (150-450); RBC Distribution Width CV 14.1 % (11.6-14.6); RBC Distribution Width SD 48.1 fl (35.1-43.9); Red Blood Count 2.95 M/mm3 (4.6-6.2); White Blood Count 2.4 K/mm3 (4.4-11.0)
[2022-02-16 05:38] LABS: Anion Gap 9 (5-15); BUN 33 mg/dL (7-18); BUN/Creat Ratio 18.8 RATIO (10-20); Calcium,Total 7.9 mg/dL (8.5-10.1); Chloride 121 mmol/L (98-107); Creatinine, Serum 1.76 mg/dL (0.70-1.30); EST Glomerular Filtration Rate 43 mL/min (>60); Est Glom Filt Rate - Afr Amer 52 mL/min (>60); Estimated Creatinine Clearance 46.96 ml/min; Glucose 90 mg/dL (74-106); Potassium 4.3 mmol/L (3.5-5.1); Sodium Level 145 mmol/L (136-145)
[2022-02-16] MEDS: Loperamide 2 MG Capsule PO (05:42)
[2022-02-16] MEDS: Sodium Bicarbonate 650 MG Tablet PO ×2 (05:42→15:41)
[2022-02-16 05:57] LABS: Differential Comment SCANNED; Differential Indicated SCAN CRITERIA MET
[2022-02-16 08:38] VITALS: O2SAT 95
[2022-02-16 08:59] VITALS: BP 113/69; PULSE 78; RESP 18; TEMP 36.6; O2SAT 97
[2022-02-16] MEDS: Tacrolimus Anhydrous 1 MG Capsule PO (09:04)
[2022-02-16] MEDS: Tacrolimus 0.5 MG Capsule PO (09:05)
[2022-02-16] MEDS: Mycophenolate Mofetil 250 MG Capsule 500 MG PO (09:05)
--- NOTE | 2022-02-16 09:26 | CASEMGMT ---
Social Work SW in to pt room to discuss d/c plan. SW introduced self and role at the hospital. Pt agreeable to discussing discharge plan. Pt agreeable to returning to [facility] when medically cleared. Pt declined a new list of SNFs. Sw called the [facility] to confirm pt allowed to return. Spoke to Virginia at the [facility]. Virginia stated pt is good to return to [facility] for intermediate level of care. If pt needs to come skills for any reason pt will need precert. At this time not skilled need has presented. Pt should return to [facility] for intermediate level of care. STUART updated Dr. Reyes that pt is good to return to his SNF. Plan: Return to [facility] when medically ready. AHMET Ortiz
[2022-02-16 10:23] VITALS: BP 113/69; PULSE 78; RESP 18; TEMP 36.6; O2SAT 97
[2022-02-16 11:02] LABS: Pathologist Review Reviewed
[2022-02-16 11:02] LABS: Pathologist Review Reviewed
--- NOTE | 2022-02-16 14:22 | DCINST_ITS ---
Discharge Instructions Diet Discharge Diet: Low fat / Low cholesterol Activity Discharge Activity: Return to Normal Activity Weight Bearing Status: Weight bearing as tolerated Dressing / Incision Call your doctor if you observe: Fever of 101 or Higher, Shortness of breath, Dizziness, Swelling in the ankles, Chest pain and Increased palpitations (irregular heartbeat) Follow Up Care Test Results: Test results from this visit will be discussed in further detail at your follow- up appointment, if applicable. Discharge Plan Admission Admit Date/Time: 02/13/22 20:25 Primary Reason for Your Visit: UTI Attending Provider: Sarah Reyes Primary Care Provider: Mike Bella Consulting Providers: Nakul Dennis ; Darin Williamson ; Jesica Russo ; Luis Armando Chapman Instructions Patient Instructions: Catheter-Linked Urinary Tract ... Discharge Orders/Prescriptions Prescriptions: New cefdinir 300 mg capsule 300 mg PO BID Qty: 10 0RF Continued mycophenolate mofetil 500 MG tablet 500 mg PO 899,2099 Label Comments: anti rejection amlodipine 5 MG tablet 5 mg PO QHS tacrolimus 1 MG capsule 1 mg PO 899,2099 Label Comments: TAKE TWO CAPSULES BY MOUTH TWICE DAILY sennosides-docusate sodium [Stool Softener-Stimulant Laxat] 1 TABLET tablet 2 tab PO BID Qty: 120 0RF multivitamin Tablet 1 tab PO QHS sodium bicarbonate 650 mg Tablet 650 mg PO TID tacrolimus 0.5 mg capsule 0.5 mg PO 899,2099 Label Comments: take 1 capsule by mouth twice a day Referrals / Follow Up: Mike Bella MD [Primary Care Provider] - Within 2 Weeks Lexis Bruno MD [Med Staff - Consulting] - Within 2 Weeks Disposition Disposition (needs filled in before D/C Order can be placed): Shelter Facility
--- NOTE | 2022-02-16 14:23 | DS.PCM_ITS ---
Providers Date of Admission: 02/13/22 Date of Discharge: 02/16/22 Primary Care Physician: Dr. Mike Bella MD Consultations 02/13/22 21:21 Consult: Nephrology Routine Consulting Provider: Darin Williamson Reason for Consult: PRISCILLA on CKD, Hx txp EMERGENT Consult: No Notified: Yes Date Notified: 02/13/22 Time Notified: 06:48 Method of Notification: answering service 02/14/22 04:00 Consult: Urology Routine Consulting Provider: Nakul Dennis Reason for Consult: PRISCILLA, UTI w/ self cath, unable to place harman/cath EMERGENT Consult: No Notified: Yes Date Notified: 02/14/22 Time Notified: 04:01 Method of Notification: Text Reason For Visit: PRISCILLA, UTI Diagnosis Discharge Diagnosis (1) CKD (chronic kidney disease), stage III: Status: Chronic Code(s): N18.3 - Chronic kidney disease, stage 3 (moderate) Medications at Discharge Home Medications mycophenolate mofetil 500 mg tablet 500 mg PO 0900,2099 Anti-Rejection 07/14/16 amlodipine 5 mg tablet 5 mg PO QHS BLOOD PRESSURE 09/29/17 tacrolimus 1 mg capsule, immediate-release 1 mg PO 0900,2099 ANTI-REJECTION 01/11/18 sennosides 8.6 mg-docusate sodium 50 mg tablet (Stool Softener-Stimulant Laxative) 2 tab PO BID ##120 01/25/18 multivitamin 1 tab PO QHS 02/13/22 sodium bicarbonate 650 mg tablet 650 mg PO TID 02/13/22 tacrolimus 0.5 mg capsule, immediate-release 0.5 mg PO 0900,2099 anti rejection 02/13/22 cefdinir 300 mg capsule 300 mg PO BID #10 caps 02/16/22 Hospital Course Operations None Summary of Care Provided Minutes Spent on Discharge: 45 Hospital Course: Patient is a 56-year-old male with a past medical history as outlined who was admitted through the ED on 02/13/2022 with worsening renal function. Labs done by his PCP. He has been having decreased urine output. He had been self catheterizing in his assisted living facility. His urine output has however been decreasing and he also had right-sided flank and right lower quadrant discomfort when he came into the ED. In the ED urinalysis showed evidence of UTI with 4+ bacteria. Renal ultrasound showed a right transplant kidney with no hydronephrosis or solid or cystic masses. He was mated and managed for UTI. He was placed on IV ceftriaxone. Nephrology was also consulted on account of PRISCILLA in the backdrop of ESRD. He was hydrated with fluids and his creatinine gradually trended downwards. Urine culture grew E. coli. Hospital course was complicated by diarrhea and patient tested positive for norovirus. Diarrhea gradually improved and he felt better. Patient was discharged back to his assisted living facility on 02/16/2022. Of note, urology was also consulted during this admission and recommended that patient be discharged home with Harman catheter in place, to follow-up with urology on outpatient basis. He was discharged on 02/16/2022 on a 5-day course of oral cefdinir. He is to self catheterize 4 times daily at home. Patient seen and examined prior to discharge. He had no active complaints and felt better. Review of systems otherwise negative. Labs and vitals reviewed. Medication reviewed and reconciled. Physical Exam Const alert, oriented x3 and no apparent distress Constitutional Narrative: Patient has evidence of chronic cognitive impairment General Appearance: cooperative, comfortable, well kempt and well developed Orientation / Consciousness: awake HEENT normocephalic, head/scalp atraumatic, hearing grossly normal bilaterally and moist oral mucous membranes Eyes PERRL, EOMs intact bilaterally and conjunctivae normal Neck supple, no JVD, thyroid normal and no carotid bruits General: trachea midline Resp normal respiratory effort, no retractions, no use of accessory muscles and clear to auscultation bilaterally Auscultation: Negative for rales, rhonchi or wheezes Cardio regular rate, regular rhythm, S1 normal heart sound, S2 normal heart sound, no murmurs, no rub and no gallops GI normal to inspection, nondistended, normoactive bowel sounds, soft to palpation, non-tender and non-distended Extremity normal to inspection, full ROM and no clubbing, cyanosis or edema Skin no rashes or lesions noted General Skin Exam: no breakdown Neuro oriented x3, CN's II-XII intact bilaterally, no focal motor deficits and no sensory deficits noted Sensorium / Orientation: awake, alert, oriented to person and oriented to place Psych affect normal Weight / BMI Weight Weight: 152 lb 8.958 oz Body Mass Index (BMI) 19.1 ABG / Lab / Microbiology Data Result Diagrams: 02/16/22 04:35 02/16/22 04:35 Laboratory: Laboratory Results - last 24 hr 02/14/22 06:07: Diff Path Review Reviewed 02/16/22 04:35: WBC 2.4 L, RBC 2.95 L, Hgb 8.9 L, Hct 27.3 L, MCV 92.5, MCH 30.2, MCHC 32.6, RDW Std Deviation 48.1 H, RDW Coeff of Anil 14.1, Plt Count 88 L , MPV 11.2, Immature Gran % (Auto) 0.400, Neut % (Auto) 54.5, Lymph % (Auto) 24.3, [place] % (Auto) 16.6 H, Eos % (Auto) 3.8, Baso % (Auto) 0.4, Absolute Neuts (auto) 1.3 L, Absolute Lymphs (auto) 0.57 L, Nucleated RBC % 0, Differential Comment SCANNED, Diff Path Review Reviewed 02/16/22 04:35: Sodium 145, Potassium 4.3, Chloride 121 H, Carbon Dioxide 15.0 L , Anion Gap 9, BUN 33 H, Creatinine 1.76 H, Estim Creat Clear Calc 46.96, Est GFR (MDRD) Af Amer 52 L, Est GFR (MDRD) Non-Af 43 L, BUN/Creatinine Ratio 18.8, Glucose 90, Calcium 7.9 L Microbiology: Microbiology 02/15/22 22:30 Stool Enteric Bacteriology - Final Norovirus 02/15/22 22:30 Stool C. difficile DNA Amplification - Final 02/13/22 19:05 Urine, Clean Catch Urine Culture - Final Escherichia coli D/C Instructions Discharge Diet: Low fat / Low cholesterol Weight Bearing Status: Weight bearing as tolerated Call your doctor if you observe: Fever of 101 or Higher, Shortness of breath, Dizziness, Swelling in the ankles, Chest pain and Increased palpitations (irre gular heartbeat) Additional Instructions: self catheterise 4x daily Meaningful Use Info Meaningful Use Diagnoses (Choose all that apply): None applicable Discharge Plan Admission Admit Date/Time: 02/13/22 20:25 Primary Reason for Your Visit: UTI Attending Provider: Sarah Reyes Primary Care Provider: Mike Bella Consulting Providers: Nakul Dennis ; Darin Williamson ; Jesica Russo ; Luis Armando Chapman Instructions Patient Instructions: Catheter-Linked Urinary Tract ... Discharge Orders/Prescriptions Prescriptions: New cefdinir 300 mg capsule 300 mg PO BID Qty: 10 0RF Continued mycophenolate mofetil 500 MG tablet 500 mg PO 899,2099 Label Comments: anti rejection amlodipine 5 MG tablet 5 mg PO QHS tacrolimus 1 MG capsule 1 mg PO 899,2099 Label Comments: TAKE TWO CAPSULES BY MOUTH TWICE DAILY sennosides-docusate sodium [Stool Softener-Stimulant Laxat] 1 TABLET tablet 2 tab PO BID Qty: 120 0RF multivitamin Tablet 1 tab PO QHS sodium bicarbonate 650 mg Tablet 650 mg PO TID tacrolimus 0.5 mg capsule 0.5 mg PO 899,2099 Label Comments: take 1 capsule by mouth twice a day Referrals / Follow Up: Lexis Bruno MD [Med Staff - Consulting] - Within 2 Weeks Mike Bella MD [Primary Care Provider] - Within 2 Weeks Nakul Dennis MD [Med Staff - Active Staff] - Within 2 Weeks Disposition Disposition (needs filled in before D/C Order can be placed): [facility] Charges/Coding Visit Charges Inpatient E&M: 82244 Disch Hosp
--- NOTE | 2022-02-16 14:35 | TREXTCAR_ITS ---
Diet Diet Order/Speech Therapy: 02/16/22 12:21 Diet: Regular - No Added Salt Is pt able to select menu?: Yes Diet Comments: magic cup or ensure pudding w/ lunch and dinner Routine Orders/Code Status Enema Type: Fleetz Enema Frequency: Daily PRN Suppository Type: Dulcolax 10mg Suppository Frequency: Daily PRN Wound(s) left third toe: Wound Type: Pressure Injury Therapies Weight Bearing: Weight bearing as tolerated Physical Therapy: Eval and Treat Occupational Therapy: Eval and Treat Problem/Diagnosis (1) CKD (chronic kidney disease), stage III: Status: Chronic Code(s): N18.3 - Chronic kidney disease, stage 3 (moderate) Allergies/Procedures Done in Hospital Allergies anything red Adverse Reaction (Uncoded 02/13/22 21:33) Hives Procedures: None Type of Care/Length of Stay Estimated LOS: Convalescent Care Less Than 30 days Type of Care Needed: Half-Way/Assisted Living Rehab Potential: Good Prognosis: Good Additional Orders/Day of Discharge Day of Discharge: 02/16/22 Dietary and Speech Recommendations Dietitian Recommendations/Changes: Will change diet to Regular No Added Salt w/ ensure pudding or magic cup w/ lunch and dinner Will order 120 ml ensure plus high protein 4x/day w/ medpass for increased nutrition if consumed. Discharge Plan Admission Admit Date/Time: 02/13/22 20:25 Primary Reason for Your Visit: UTI Attending Provider: Sarah Reyes Primary Care Provider: Mike Bella Consulting Providers: Nakul Dennis ; Darin Williamson ; Jesica Russo ; Luis Armando Chapman Instructions Patient Instructions: Catheter-Linked Urinary Tract ... Discharge Orders/Prescriptions Prescriptions: New cefdinir 300 mg capsule 300 mg PO BID Qty: 10 0RF Continued mycophenolate mofetil 500 MG tablet 500 mg PO 899,2099 Label Comments: anti rejection amlodipine 5 MG tablet 5 mg PO QHS tacrolimus 1 MG capsule 1 mg PO 899,2099 Label Comments: TAKE TWO CAPSULES BY MOUTH TWICE DAILY sennosides-docusate sodium [Stool Softener-Stimulant Laxat] 1 TABLET tablet 2 tab PO BID Qty: 120 0RF multivitamin Tablet 1 tab PO QHS sodium bicarbonate 650 mg Tablet 650 mg PO TID tacrolimus 0.5 mg capsule 0.5 mg PO 0900,2100 Label Comments: take 1 capsule by mouth twice a day Referrals / Follow Up: Lexis Bruno MD [Med Staff - Consulting] - Within 2 Weeks Nakul Dennis MD [Med Staff - Active Staff] - Within 2 Weeks Mike Bella MD [Primary Care Provider] - Within 2 Weeks Disposition Disposition (needs filled in before D/C Order can be placed): Group Home Facility
--- NOTE | 2022-02-16 14:36 | CHAPLAIN ---
Type of Pastoral Visit _x__ Initial Visit ___ Follow-up Visit ___ On-call Visit ___ General Patient Visit ___ Spiritual Assessment ___ Family Conference ___ Bereavement ___ Rapid Response ___ Code Blue ___ Other (describe below) Pastoral Care Referral From _x__ Patient _x__ Family ___ Nurse ___ Physician ___ Various Exceptionalities Teacher ___ Dredge Captain ___ Other (describe below) Sacrament/Intervention _x__ Active listening ___ Anointing ___ Lutheran ___ Bereavement ___ Communion ___ Alma exploration ___ _x__ Life review _x__ Prayer ___ Reconciliation ___ Sacrament of Sick _x__ Supportive presence ___ Wedding ___ Other (describe below) Pastoral Comments mother of patient is in the room and she does most of the explaining of situation, life review of patient, her advocacy for better care of patient; pt does interact some and gives simple answers although slow in his response time; pt states and appears to have no discomfort; pt willing for a prayer and having a visit while he is admitted
--- NOTE | 2022-02-16 14:53 | PN.HOSP_ITS ---
Subjective Subjective Patient seen and examined. He had no active complaints. His diarrhea is improving. Review of systems otherwise negative. Objective Data Objective Data Vital Signs: Vital Signs Temp Pulse Resp BP Pulse Ox O2 Del Method 98 F 78 18 113/69 97 Room Air 02/16/22 10:23 02/16/22 10:23 02/16/22 10:23 02/16/22 10:23 02/16/22 10:23 02/16/22 10:23 Oxygen Delivery Method Room Air Weight: 152 lb 8.958 oz Body Mass Index (BMI) 19.1 Intake & Output: Intake and Output for Last 24 Hours 02/14/22 02/15/22 02/16/22 23:59 23:59 23:59 Intake Total 3572.92 / 3572.92 2580 / 2580 1000 / 1000 Output Total 1100 / 1375 1875 / 1875 1000 / 1000 Balance 2472.92 / 2197.92 705 / 705 0 / 0 Lab / Micro Data Result Diagrams: 02/16/22 04:35 02/16/22 04:35 Labs: Laboratory Results - last 24 hr 02/14/22 06:07: Diff Path Review Reviewed 02/16/22 04:35: WBC 2.4 L, RBC 2.95 L, Hgb 8.9 L, Hct 27.3 L, MCV 92.5, MCH 30.2, MCHC 32.6, RDW Std Deviation 48.1 H, RDW Coeff of Anil 14.1, Plt Count 88 L , MPV 11.2, Immature Gran % (Auto) 0.400, Neut % (Auto) 54.5, Lymph % (Auto) 24.3, Bullock % (Auto) 16.6 H, Eos % (Auto) 3.8, Baso % (Auto) 0.4, Absolute Neuts (auto) 1.3 L, Absolute Lymphs (auto) 0.57 L, Nucleated RBC % 0, Differential Comment SCANNED, Diff Path Review Reviewed 02/16/22 04:35: Sodium 145, Potassium 4.3, Chloride 121 H, Carbon Dioxide 15.0 L , Anion Gap 9, BUN 33 H, Creatinine 1.76 H, Estim Creat Clear Calc 46.96, Est GFR (MDRD) Af Amer 52 L, Est GFR (MDRD) Non-Af 43 L, BUN/Creatinine Ratio 18.8, Glucose 90, Calcium 7.9 L Micro: Microbiology 02/15/22 22:30 Stool Enteric Bacteriology - Final Norovirus 02/15/22 22:30 Stool C. difficile DNA Amplification - Final 02/13/22 19:05 Urine, Clean Catch Urine Culture - Final Escherichia coli Rhythm Strip Rhythm Strip: Sinus Rhythm Rate: 85 Ectopy: None Physical Exam Const alert, oriented x3 and no apparent distress Constitutional Narrative: Patient has evidence of chronic cognitive impairment General Appearance: cooperative, comfortable, well kempt and well developed Orientation / Consciousness: awake HEENT normocephalic, head/scalp atraumatic, hearing grossly normal bilaterally and moist oral mucous membranes Eyes PERRL, EOMs intact bilaterally and conjunctivae normal Neck supple, no JVD, thyroid normal and no carotid bruits General: trachea midline Resp normal respiratory effort, no retractions, no use of accessory muscles and clear to auscultation bilaterally Auscultation: Negative for rales, rhonchi or wheezes Cardio regular rate, regular rhythm, S1 normal heart sound, S2 normal heart sound, no murmurs, no rub and no gallops GI normal to inspection, nondistended, normoactive bowel sounds, soft to palpation, non-tender and non-distended Extremity normal to inspection, full ROM and no clubbing, cyanosis or edema Skin no rashes or lesions noted General Skin Exam: no breakdown Neuro oriented x3, CN's II-XII intact bilaterally, no focal motor deficits and no sen jun deficits noted Sensorium / Orientation: awake, alert, oriented to person and oriented to place Psych affect normal Psych Narrative: Patient shows evidence of chronic cognitive impairment Assessment & Plan Assessment/Plan (1) CKD (chronic kidney disease), stage III: PLAN: Plan #UTI due to E coli * has chronic neurogenic bladder and self catheterizes at home * on IV ceftriaxone; will transition to PO cefdinir at discharge * #PRISCILLA in setting of ESRD * is s/p kidney transplant * -Cr has trended downwards * nephrology on board * continue gentle hydration with IVF * #Diarrhea due to norovirus infection * diarrhea is improving. Feels much better. Will monitor * #Non-anion gap metabolic acidosis: Likely due to elevated creatinine. On sodium bicarbonate. Nephrology on board. #Anemia: likely due to ESRD: stable. #History of ESRD * s/p renal transplant. * on tacrolimus and mycophenolate * #Pancytopenia * WBC is 2.4 hemoglobin is 8.9 with platelets of 88. This is chronic. Will monitor. * To refer to hematology by PCP as deemed appropriate. * DVT prophylaxis: SCDs Charges/Coding Visit Charges Inpatient E&M: 61838 Subs Hosp L2
--- NOTE | 2022-02-16 15:14 | PHA.DC.MR ---
Pharmacy Service has performed discharge medication reconciliation for this patient. The patient's discharge medication list was reviewed for discrepancies and discrepancies were resolved. Home Medications mycophenolate mofetil 500 mg tablet 500 mg PO 0900,2099 Anti-Rejection 07/14/16 amlodipine 5 mg tablet 5 mg PO QHS BLOOD PRESSURE 09/29/17 tacrolimus 1 mg capsule, immediate-release 1 mg PO 0900,2099 ANTI-REJECTION 01/11/18 sennosides 8.6 mg-docusate sodium 50 mg tablet (Stool Softener-Stimulant Laxative) 2 tab PO BID ##120 01/25/18 multivitamin 1 tab PO QHS 02/13/22 sodium bicarbonate 650 mg tablet 650 mg PO TID 02/13/22 tacrolimus 0.5 mg capsule, immediate-release 0.5 mg PO 0900,2099 anti rejection 02/13/22 cefdinir 300 mg capsule 300 mg PO BID #10 caps 02/16/22
--- NOTE | 2022-02-16 15:29 | CASEMGMT ---
Social Work SW met with pt's mother and Dr. Reyes after pt's mother requested a meeting to discuss care of pt. Upon discussion pt's mother just needing reassurance that pt is medically ready to discharge. Discussed concerns with rehab and noted pt not needing SNF but could benefit from HHC. STUART notified RNCM, Naila of pt need for HHC. Pt's mother stated would pick pt up after dinner to transport pt home to [facility] [place]. STUART called [place] to inform pt would be coming home today. [place] requested a med list. STUART printed med list and sent in pt envelope. DISPO: Home to [place], with HHC AHMET Ortiz
[2022-02-16 15:37] VITALS: BP 102/63; PULSE 81; RESP 18; TEMP 36.8; O2SAT 98
--- NOTE | 2022-02-16 15:37 | CASEMGMT ---
Addendum entered by Naila Akins 02/16/22 16:14: No returned call from [facility]. Referral sent to [facility] via careport at this time as well. JASMEET PINTO in to pt room, spoke with pt and to make aware that RN CM will follow up tomorrow on accepting agency as pt will dc today yet. Original Note: RN BLAIR in to pt room, pt mother at bedside, discussed returning to [place] with [facility]. Pt mother and pt agreeable with SN and therapy. Patient was provided a list of [facility] providers including quality and resource use data and consistent with the patient?s preferred geographic region, medical needs, and insurance network were provided from the [facility]. Pt mother chose 1. [facility] (not on list, but patient has had in the past) 2. [facility] 3. [facility]. NOY Graham at [facility], left message to see if in network with pt insurance. Will await response.
[2022-02-16] MEDS: Ensure Plus High Protein 120 ML LIQUID PO (15:41)
--- NOTE | 2022-02-16 17:06 | NURSING ---
Report called the Ysabel at the [facility].
--- NOTE | 2022-02-17 09:33 | CASEMGMT ---
JASMEET CM call to [facility]. Sally advised the referral was not received via CarePort. Request for referral via fax. Fax to [facility] with request for SN, PT, and OT. Facesheet, H&P, Order, DC Instructions, and DC Summary included.
--- NOTE | 2022-02-17 13:13 | CASEMGMT ---
Addendum entered by Naila Akins 02/17/22 14:28: Received notification from [facility] that they cannot accept pt. Referrals sent to and [facility] who declined. TC to Torres at [facility], requested referral to be faxed. Faxed at this time. Awaiting acceptance. Original Note: TC from [facility], they are not in network with pt insurance. TC to [facility], spoke with Sally, they are not able to accept pt either. Careport referral sent to third choice at this time.
--- NOTE | 2022-02-17 16:29 | CASEMGMT ---
RN BLAIR PC to Pt's mother, Denny to discuss HH service. Several agencies have denied. Currently awaiting acceptance with [facility]. Denny was advised of this. Per Denny, Pt has six more days with the harman in place. Denny stated that urologist, Dr. Dennis does not accept Pt's insurance. Per Denny, Dr. Dennis said medical staff with [facility] will remove the catheter. Denny plans to contact Pt's PCP.
--- NOTE | 2022-02-18 08:52 | CASEMGMT ---
Referral also sent to [facility], they declined pt as well.
--- NOTE | 2022-02-18 11:37 | CASEMGMT ---
Addendum entered by Naila Akins 02/18/22 13:28: Received tc from [facility] who states the [place] states they are covering pt nursing and therapy needs and they do not need HHC. Original Note: Follow-up PC with Torres at [facility]. Torres advised she left a voicemail with the [facility] to note what services they are providing. She plans to follow-up with the [facility] if she has not heard from them by this afternoon. Torres will advise.
--- NOTE | 2022-02-18 13:35 | CASEMGMT ---
Addendum entered by Kristine Russell 02/18/22 13:41: PC to pt's mother, Denny. No answer on the home or cell phone numbers. Voicemail left with return call information. Original Note: PC to [facility]. RN CM spoke with Ys[facility]. [facility] denied pt is receiving SN or therapy but stated if the Order is faxed, they will start services. Order for SN and therapy faxed to [facility].
[2022-02-19 17:51] LABS: Tacrolimus (FK506) 19.9 ng/mL (2.0-20.0)
== END 2022-02-16 17:57 | disposition home health service (06) | DRG 699 ==
LOC: ED 20:38 → MS3 20:44
PROVIDERS: Internal Medicine; Admitting Provider Family Medicine; Emergency Provider Emergency Medicine; PCP Family Medicine; Visit Provider Student in an Organized Health Care Education/Training Program
DX: T86.19 Other complication of kidney transplant (principal); N30.00 Acute cystitis without hematuria; D61.818 Other pancytopenia; N17.9 Acute kidney failure, unspecified; E87.20 Acidosis, unspecified; D63.1 Anemia in chronic kidney disease; N18.32 Chronic kidney disease, stage 3b; D72.819 Decreased white blood cell count, unspecified; I12.9 Hypertensive chronic kidney disease with stage 1 through stage 4 chronic kidney disease, or unspecified chronic kidney disease; R19.7 Diarrhea, unspecified; Z94.0 Kidney transplant status; B96.20 Unspecified Escherichia coli [E. coli] as the cause of diseases classified elsewhere; N31.9 Neuromuscular dysfunction of bladder, unspecified
CPT/HCPCS: 36415; 76776; 80048; 80053; 80069; 80197; 81001; 82570; 84156; 84300; 85025; 85027; 87077; 87086; 87088; 87186; 87493; 87506; 93005; 97162; 97166; 97530; 97535; 99284; J7030; J7050; A4216; C1769; J2405

== ENCOUNTER → 2022-02-23 | Outpatient (CLI) | payer MEDICARE, SELFPAY ==
[2022-02-23 15:41] LABS: Anion Gap 10 (5-15); BUN 38 mg/dL (7-18); BUN/Creat Ratio 19.9 RATIO (10-20); Calcium,Total 8.6 mg/dL (8.5-10.1); Chloride 120 mmol/L (98-107); Creatinine, Serum 1.91 mg/dL (0.70-1.30); EST Glomerular Filtration Rate 39 mL/min (>60); Est Glom Filt Rate - Afr Amer 47 mL/min (>60); Glucose 109 mg/dL (74-106); Potassium 4.9 mmol/L (3.5-5.1); Sodium Level 143 mmol/L (136-145)
== END | disposition home or self-care (01) ==
LOC: MFPLAB 11:51
PROVIDERS: PCP Family Medicine; Visit Provider Family Medicine
DX: R33.9 Retention of urine, unspecified (principal)
CPT/HCPCS: 36415; 80048

== ENCOUNTER → 2022-03-03 | Outpatient (CLI) | payer MEDICARE, SELFPAY ==
[2022-03-03 08:23] LABS: Hemoglobin 10.9 g/dL (13.0-16.5); Mean Corpuscular Volume 93.8 fL (80-94); Mean Platelet Vol. 11.1 fl (6.2-12.0); Platelet Count 132 K/mm3 (150-450); RBC Distribution Width CV 14.7 % (11.6-14.6); RBC Distribution Width SD 50.7 fl (35.1-43.9); Red Blood Count 3.52 M/mm3 (4.6-6.2); White Blood Count 2.8 K/mm3 (4.4-11.0)
[2022-03-03 08:44] LABS: Albumin, Serum 3.5 g/dL (3.2-5.0); BUN 45 mg/dL (7-18); Calcium,Total 8.8 mg/dL (8.5-10.1); Chloride 121 mmol/L (98-107); Creatinine, Serum 2.14 mg/dL (0.70-1.30); EST Glomerular Filtration Rate 34 mL/min (>60); Est Glom Filt Rate - Afr Amer 42 mL/min (>60); Glucose 103 mg/dL (74-106); Phosphorus 3.2 mg/dL (2.5-4.9); Potassium 4.6 mmol/L (3.5-5.1); Sodium Level 145 mmol/L (136-145)
[2022-03-03 09:03] LABS: Protein, Urine (Random) 87.2 mg/dL (<11.9); Protein:Creat Ratio 1177 mg/g CRE (0-200)
== END | disposition home or self-care (01) ==
LOC: LAB 07:46
PROVIDERS: PCP Family Medicine; Referring Provider Internal Medicine Nephrology; Visit Provider Internal Medicine Nephrology
DX: Z94.0 Kidney transplant status (principal)
CPT/HCPCS: 36415; 80069; 80197; 82570; 84156; 85027

== ENCOUNTER 2022-04-15 18:27 | Inpatient (IN) | payer MEDICARE, SELFPAY ==
[2022-04-15 18:28] VITALS: BP 91/55; PULSE 94; RESP 20; TEMP 36; O2SAT 100; BMI 17.6
[2022-04-15 18:42] VITALS: BP 100/55; PULSE 88; RESP 18; O2SAT 100
--- NOTE | 2022-04-15 18:43 | EKG12_ITS ---
Test Reason : GEN ILL Blood Pressure : / mmHG Vent. Rate : 087 BPM Atrial Rate : 087 BPM P-R Int : 122 ms QRS Dur : 090 ms QT Int : 424 ms P-R-T Axes : 080 067 066 degrees QTc Int : 510 ms Normal sinus rhythm Cannot rule out Anterior infarct , age undetermined Prolonged QT Abnormal ECG Confirmed by MIGUEL MORENO, TR ([id number]), book or script editor MIGUEL ANGEL DEAL ([id number]) on 04/17/2022 10:45:00 AM Referred By: Confirmed By:VAMSHI RIVERA MD
--- NOTE | 2022-04-15 18:46 | EDS_ITS ---
HPI History of Present Illness Chief Complaint: General Illness Informant: patient and parent Onset/Context/Timing Onset: Days Context: Gradual Onset Narrative Narrative: [facility] due to concern for increasing lethargy and cloudy urine. Patient was brought in by his mother who is his POA. She states that for the past week he is slightly more lethargic than baseline. She has not been told that has been running a fever. He had a kidney transplant 3 years ago and has not required dialysis since that time. He does self cath 4 times a day and states she was told that when they checked the urine tonight it seemed more cloudy and felt he should be seen by someone. [facility] Medical History Anemia Bronchitis CKD (chronic kidney disease), stage III Congenital nystagmus DVT (deep venous thrombosis) HTN (hypertension) Mild intellectual disability Neurogenic bladder disorder Pancytopenia Pulmonary embolism Urinary retention Vocal cord dysfunction Home Medications mycophenolate mofetil 500 mg tablet 500 mg PO 0900,2100 Anti-Rejection 07/14/16 [History Last Taken 02/13/22] amlodipine 5 mg tablet 5 mg PO QHS BLOOD PRESSURE 09/29/17 [History Last Taken 02/12/22] tacrolimus 1 mg capsule, immediate-release 1 mg PO 0900,2100 ANTI-REJECTION 01/11/18 [History Last Taken 02/13/22] multivitamin 1 tab PO QHS 02/13/22 [History Last Taken 02/12/22] tacrolimus 0.5 mg capsule, immediate-release 0.5 mg PO 0900,2100 anti rejection 02/13/22 [History Last Taken 02/13/22] Allergy/AdvReac Type Severity Reaction Status Date / Time anything red AdvReac Hives Uncoded 04/15/22 18:30 Family History Mother Hypertension Father Diabetes Surgical History Kidney transplant recipient Renal transplant, status post S/P arteriovenous ([facility]) fistula creation Social History Smoking Status: Never smoker second hand exposure: No alcohol intake: never substance use type: does not use caffeine: No ROS ROS ED Constitutional Constitutional ED: Denies chills or fever(s) Eyes Eyes: Denies change in vision or discharge from eye(s) ENT ENT ED: Denies discharge from eye(s), rhinorrhea or sore throat Cardiovascular Cardiovascular: Denies chest pain or palpitations Respiratory/Chest Respiratory/Chest: Denies cough or dyspnea Gastrointestinal Gastrointestinal: Reports diarrhea; Denies abdominal pain, nausea or vomiting Genitourinary Genitourinary ED: Reports other Details: Cloudy urine noted on self cath. Musculoskeletal Musculoskeletal: Denies back pain or extremity pain Integumentary Denies Abrasions or rash Neurologic Neurologic: Reports weakness; Denies headache(s) Psychiatric Psychiatric: Denies anxiety or depression Allergic/Immunologic Allergic/Immunologic ED: Denies lip swelling or urticaria EXAM Physical Exam Const Vital Signs: 04/15/22 18:28 04/15/22 18:42 04/15/22 18:43 Temperature 96.8 F L Temperature Source Temporal Pulse Rate 94 88 Respiratory Rate 20 H 18 Respiratory Effort Short of Breath Respiratory Pattern Tachypnea Blood Pressure 91/55 L 100/55 L Blood Pressure Mean 67 70 Pulse Ox 100 100 Oxygen Delivery Method Room Air Room Air 04/15/22 19:30 Temperature Temperature Source Pulse Rate 72 Respiratory Rate 18 Respiratory Effort Respiratory Pattern Blood Pressure 101/60 Blood Pressure Mean 73 Pulse Ox 100 Oxygen Delivery Method Positive well nourished and well developed General Appearance ED: well developed HEENT Reports normocephalic and head/scalp atraumatic Eyes PERRL and EOMs intact bilaterally Neck supple Chest Wall inspection of chest normal and palpation of chest normal Resp normal respiratory effort and clear to auscultation bilaterally Cardio regular rate and regular rhythm GI normal to inspection, nondistended, normoactive bowel sounds Palpation: soft Extremity normal to inspection Neuro Neuro Narrative: Alert and interactive. Moves all 4 extremities. Sensorium / Orientation: alert Psych mental status grossly normal Skin no rashes or lesions noted MDM MDM MDM Narrative Medical decision making narrative: Patient placed on home health clinical liaison. EKG, chest x-ray, lab work obtained. Urinalysis ordered along with blood and urine cultures. IV fluids initiated. Lab Data Attestation: I reviewed the patient's lab results. Labs: Laboratory Results - last 24 hr 12/14/22 12/14/22 12/14/22 18:57 18:57 18:57 WBC 5.6 RBC 3.53 L Hgb 10.5 L Hct 33.3 L MCV 94.3 H MCH 29.7 MCHC 31.5 L RDW Std Deviation 47.2 H RDW Coeff of Anil 13.9 Plt Count 252 MPV 10.4 Immature Gran % (Auto) 1.600 H Neut % (Auto) 74.0 H Lymph % (Auto) 9.1 L [place] % (Auto) 13.5 H Eos % (Auto) 1.4 Baso % (Auto) 0.4 Absolute Neuts (auto) 4.2 Absolute Lymphs (auto) 0.51 L Nucleated RBC % 0 Differential Comment SCANNED Sodium 143 Potassium 4.7 Chloride 121 H Carbon Dioxide 10.0 L Anion Gap 12 BUN 127 H* Creatinine 4.58 H Estim Creat Clear Calc 15.38 Est GFR (MDRD) Af Amer 17 L Est GFR (MDRD) Non-Af 14 L BUN/Creatinine Ratio 27.7 H Glucose 144 H Lactic Acid 1.5 Calcium 8.3 L Total Bilirubin 0.60 Direct Bilirubin 0.27 AST 36 ALT 52 Alkaline Phosphatase 181 H Total Protein 6.4 Albumin 2.9 L Globulin 3.5 Urine Color Urine Clarity Urine pH Ur Specific [place] Urine Protein Urine Glucose (UA) Urine Ketones Urine Occult Blood Urine Nitrite Urine Bilirubin Urine Urobilinogen Ur Leukocyte Esterase Urine RBC Urine WBC Ur Squamous Epith Cells Amorphous Sediment Urine Bacteria Urine Mucus 04/15/22 20:15 WBC RBC Hgb Hct MCV MCH MCHC RDW Std Deviation RDW Coeff of Anil Plt Count MPV Immature Gran % (Auto) Neut % (Auto) Lymph % (Auto) [place] % (Auto) Eos % (Auto) Baso % (Auto) Absolute Neuts (auto) Absolute Lymphs (auto) Nucleated RBC % Differential Comment Sodium Potassium Chloride Carbon Dioxide Anion Gap BUN Creatinine Estim Creat Clear Calc Est GFR (MDRD) Af Amer Est GFR (MDRD) Non-Af BUN/Creatinine Ratio Glucose Lactic Acid Calcium Total Bilirubin Direct Bilirubin AST ALT Alkaline Phosphatase Total Protein Albumin Globulin Urine Color Yellow Urine Clarity Cloudy Urine pH 6.0 Ur Specific [place] 1.015 Urine Protein 500 H Urine Glucose (UA) Normal Urine Ketones Negative Urine Occult Blood 250 H Urine Nitrite Negative Urine Bilirubin Negative Urine Urobilinogen Normal Ur Leukocyte Esterase 500 H Urine RBC 50-100 SEEN Urine WBC >100 SEEN Ur Squamous Epith Cells 0-5 SEEN Amorphous Sediment 1+ URATE Urine Bacteria 4+ Urine Mucus 0 SEEN Radiography Chest X-Ray - ED: 1 View, Read by ED Physician, Chronic Changes and No Infiltrates Diagnostic Testing: Clinical Impression(s) from Imaging Studies Chest X-Ray 04/15/22 19:24 IMPRESSION: No acute radiographic abnormalities. Electronically Signed: Chino Puri MD at 20:50 EST , EKG Initial EKG: Attestation: I personally reviewed and interpreted this EKG as follows: Interpretation: Sinus Rhythm (TremorSinus 87 with underlying defect. No acute ischemia.) Treatment and Re-Evaluation Narrative: CBC was normal white count with 74% neutrophils. Chemistry studies reveal normal potassium. BUN is 127 and creatinine is 4.58. It appears his baseline creatinine is around 2.5. Lactic acid is normal at 1.5. Urinalysis reveals 4+ bacteria with greater than 100 white cells. EKG per my interpretation reveals no ischemia. Chest x-ray per my interpretation reveals no focal infiltrate. Radiology interpretation is reviewed. I did reveal the patient's most recent urine culture from January. At that time he had evidence of E. coli that was pansensitive. Patient is given a dose of Rocephin and I will speak with hospitalist regarding admission. Discharge Plan Triage Chief Complaint: General Illness ED Provider: Vania Sullivan Dx/Rx/DC Orders Clinical Impression: UTI (urinary tract infection), Acute kidney failure Prescriptions: No Action mycophenolate mofetil 500 MG tablet 500 mg PO 00,2099 Label Comments: anti rejection amlodipine 5 MG tablet 5 mg PO QHS tacrolimus 1 MG capsule 1 mg PO 899,2099 Label Comments: TAKE TWO CAPSULES BY MOUTH TWICE DAILY sennosides-docusate sodium [Stool Softener-Stimulant Laxat] 1 TABLET tablet 2 tab PO BID Qty: 120 0RF multivitamin Tablet 1 tab PO QHS sodium bicarbonate 650 mg Tablet 650 mg PO TID tacrolimus 0.5 mg capsule 0.5 mg PO 899,2099 Label Comments: take 1 capsule by mouth twice a day Primary Care Provider: Mike Bella Referrals: Mike Bella MD [Primary Care Provider] - Disposition Disposition: Acute Care Hospital [facility]
[2022-04-15 19:12] LABS: Absolute Lymphocyte Count 0.51 X10^3/uL (0.83-4.51); Absolute Neutrophil Count 4.2 X10^3/uL (2.0-7.7); Basophil# 0.02 X10^3/uL; Basophil% 0.4 % (0-1); Eosinophil# 0.08 X10^3/uL; Eosinophils% 1.4 % (0-5); Hematocrit 33.3 % (40-54); Hemoglobin 10.5 g/dL (13.0-16.5); Lymphocyte # 0.51 X10^3/ul (0.83-4.51); Lymphocyte % 9.1 % (19-41); Mean Corp Hgb Conc 31.5 g/dL (32-36); Mean Corpuscular Hgb 29.7 pg (27.0-32.0); Mean Corpuscular Volume 94.3 fL (80-94); Mean Platelet Vol. 10.4 fl (6.2-12.0); Monocyte# 0.76 X10^3/uL; Monocyte% 13.5 % (0-10); NRBC Flagged by Analyzer 0 % (0-5); Neutrophil # 4.15 X10^3/uL (2.7-7.7); POSITIVE DIFFERENTIAL YES; Platelet Count 252 K/mm3 (150-450); RBC Distribution Width CV 13.9 % (11.6-14.6); RBC Distribution Width SD 47.2 fl (35.1-43.9); Red Blood Count 3.53 M/mm3 (4.6-6.2); White Blood Count 5.6 K/mm3 (4.4-11.0)
[2022-04-15] MEDS: 0.9% Normal Saline 1,000 ML 150 ML IV ×2 (19:14→23:37)
--- NOTE | 2022-04-15 19:24 | RAD_ITS ---
INDICATION: sob EXAMINATION/TECHNIQUE: X-RAY - XR Chest 1 View COMPARISON: 12/05/2021. FINDINGS: The lungs are clear. The cardiomediastinal silhouette is unremarkable. No pleural effusion or pneumothorax. Degenerative changes of the thoracic spine. RAD/Chest 1 View (Portable) IMPRESSION: No acute radiographic abnormalities. Electronically Signed: Chino Puri MD at 20:50 EST ,
[2022-04-15 19:30] VITALS: BP 101/60; PULSE 72; RESP 18; O2SAT 100
[2022-04-15 19:55] LABS: AST(SGOT) 36 U/L (15-37); Alanine Aminotransfer ALT/SGPT 52 U/L (16-61); Albumin, Serum 2.9 g/dL (3.2-5.0); Alkaline Phosphatase 181 U/L (45-117); Anion Gap 12 (5-15); BUN 127 mg/dL (7-18); BUN/Creat Ratio 27.7 RATIO (10-20); Bilirubin, Direct 0.27 mg/dL (0.00-0.30); Calcium,Total 8.3 mg/dL (8.5-10.1); Chloride 121 mmol/L (98-107); Creatinine, Serum 4.58 mg/dL (0.70-1.30); EST Glomerular Filtration Rate 14 mL/min (>60); Est Glom Filt Rate - Afr Amer 17 mL/min (>60); Estimated Creatinine Clearance 15.38 ml/min; Globulin 3.5 g/dL (2.2-4.2); Glucose 144 mg/dL (74-106); Lactic Acid 1.5 mmol/L (0.4-1.9); Potassium 4.7 mmol/L (3.5-5.1); Protein, Total 6.4 g/dL (6.4-8.2); Sodium Level 143 mmol/L (136-145)
[2022-04-15 20:21] LABS: Mucous, Urine 0 SEEN /hpf (<or=2+)
[2022-04-15 20:26] LABS: Color, Urine Yellow (Yellow); Glucose, Dipstick Normal (Normal); Ketone-Dipstick Negative (Negative); Leukocyte Esterase-Dipstick 500 /ul (Negative); Nitrite-Dipstick Negative (Negative); Occult Blood-Urine 250 /ul (Negative); Protein-Dipstick 500 mg/dl (Negative); Specific Gravity, Urine 1.015 (1.002-1.030); Urine Bilirubin Dipstick Negative (Negative); Urine Clarity Cloudy (Clear); Urine Urobilinogen Normal (Normal)
[2022-04-15] MEDS: 0.9% Normal Saline 1,000 ML 999 ML IV (20:32)
[2022-04-15 20:33] LABS: Differential Indicated SCAN CRITERIA MET
[2022-04-15 20:34] LABS: Differential Comment SCANNED
[2022-04-15 20:35] LABS: White Blood Cells >100 SEEN /hpf (0-5)
[2022-04-15 20:36] LABS: Amorphous Sediment 1+ URATE; Bacteria 4+ /hpf (None Seen); Red Blood Cells-Urine 50-100 SEEN /hpf (0-5); Squamous Epithelial Cells - UA 0-5 SEEN /hpf (0-5)
[2022-04-15] MEDS: Ceftriaxone 1 GM/50 ML BAG IV (21:00)
[2022-04-15 21:03] VITALS: BP 106/62; PULSE 73; RESP 16; O2SAT 100
[2022-04-15 21:36] VITALS: BP 106/64; PULSE 78; RESP 16; TEMP 36.6
--- NOTE | 2022-04-15 21:58 | HP.PCM.HOS_ITS ---
HPI - General General Date of Admission: 04/15/22 Date of Service: 04/15/22 Chief Complaint: Poor p.o. 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 In the ED he was found to have UA suggestive of UTI and worsening of his kidney function with creatinine 4.58 with a baseline closer to 2. He was given Rocephin and started on IV fluids and hospitalist consulted for admission. He was brought to the ER by his mother and history obtained largely by mother with some supplemental history from Mr. Garcia. At baseline he is atonic bladder and straight caths 4 times a day and had been doing this without difficulty though per report and urine had become more cloudy. Over the past several days he has been more tired and had poor p.o. intake, no known fevers. Has also had diarrhea and has had some nausea but he had difficulty giving timeline or amount for either of these. Some mild abdominal tenderness that he is not able to localize. Reported some arthritis in his legs but denied pain anywhere else. No new rashes or bleeding or bruising. He reports feeling somewhat better at the time of evaluation compared to how he felt prior to arrival. Mother reports his mental status is at baseline but he is still slightly tired. [facility] Medical History Anemia Bronchitis CKD (chronic kidney disease), stage III Congenital nystagmus DVT (deep venous thrombosis) HTN (hypertension) Mild intellectual disability Neurogenic bladder disorder Pancytopenia Pulmonary embolism Urinary retention Vocal cord dysfunction Home Medications mycophenolate mofetil 500 mg tablet 500 mg PO 0900,2100 Anti-Rejection 07/14/16 [History Last Taken 02/13/22] amlodipine 5 mg tablet 5 mg PO QHS BLOOD PRESSURE 09/29/17 [History Last Taken 02/12/22] tacrolimus 1 mg capsule, immediate-release 1 mg PO 0900,2100 ANTI-REJECTION 01/11/18 [History Last Taken 02/13/22] multivitamin 1 tab PO QHS 10/14/22 [History Last Taken 02/12/22] tacrolimus 0.5 mg capsule, immediate-release 0.5 mg PO 0900,2100 anti rejection 02/13/22 [History Last Taken 02/13/22] Allergy/AdvReac Type Severity Reaction Status Date / Time anything red AdvReac Hives Uncoded 04/15/22 18:30 Family History Mother Hypertension Father Diabetes Surgical History Kidney transplant recipient Renal transplant, status post S/P arteriovenous (AV) fistula creation Social History Smoking Status: Never smoker second hand exposure: No alcohol intake: never substance use type: does not use caffeine: No ROS Constitutional Constitutional: Reports other Details: Weight loss over the past few months Eyes Eyes: Reports other Details: Congenital nystagmus ENT HEENT: Reports other Details: Worsening hearing loss over 6 months Cardiovascular Cardiovascular: Denies chest pain Respiratory/Chest Respiratory/Chest: Reports other Details: No shortness of breath Gastrointestinal Gastrointestinal: Reports other Details: Has had episodes of loose stool intermittently and intermittent nausea Genitourinary Genitourinary: Reports other Details: Cloudy urine Musculoskeletal Musculoskeletal: Reports other Details: Reports some history of arthritis in legs Neurologic Neurologic: Reports other Details: Chronic tremors, mother reports presently at baseline Psychiatric Psychiatric: Reports other Details: Intellectual disability at baseline Hematologic/Lymphatic Hematologic/Lymphatic: Reports other Details: No bleeding or bruising Allergic/Immunologic Allergic/Immunologic: Reports other Details: Denies any rashes Vital Signs Vital Signs Vital Signs: 04/15/22 18:28 04/15/22 18:42 04/15/22 18:43 Temperature 96.8 F L Temperature Source Temporal Pulse Rate 94 88 Respiratory Rate 20 H 18 Respiratory Effort Short of Breath Respiratory Pattern Tachypnea Blood Pressure 91/55 L 100/55 L Blood Pressure Mean 67 70 Pulse Ox 100 100 Oxygen Delivery Method Room Air Room Air 04/15/22 19:30 04/15/22 21:03 04/15/22 21:36 Temperature 98 F Temperature Source Temporal Pulse Rate 72 73 78 Respiratory Rate 18 16 16 Respiratory Effort Respiratory Pattern Blood Pressure 101/60 106/62 106/64 Blood Pressure Mean 73 76 78 Pulse Ox 100 100 Oxygen Delivery Method Room Air Room Air Weight Weight: 58.967 kg Body Mass Index (BMI) 17.6 Physical Exam Const alert Constitutional Narrative: Oriented HEENT normocephalic and head/scalp atraumatic HEENT Narrative: With appear dry and cracked Eyes Eyes Narrative: Congenital nystagmus Neck supple Resp normal respiratory effort and clear to auscultation bilaterally Cardio regular rate and regular rhythm GI soft to palpation and non-distended GI Narrative: Mild tender to palpation diffusely Extremity Extremity Narrative: No edema appreciated, moves all extremities Neuro moves all extremities Neuro Narrative: Has both resting and intention tremor of both upper extremities which mother reports is presently at baseline, able to perform [id number] test albeit slowly and with no tremor appreciated Psych Psych Narrative: Cooperative Results Lab / Micro Data Result Diagrams: 04/15/22 18:57 04/15/22 18:57 Labs: Laboratory Results - last 24 hr 04/15/22 18:57: WBC 5.6, RBC 3.53 L, Hgb 10.5 L, Hct 33.3 L, MCV 94.3 H, MCH 29.7, MCHC 31.5 L, RDW Std Deviation 47.2 H, RDW Coeff of Anil 13.9, Plt Count 252, MPV 10.4, Immature Gran % (Auto) 1.600 H, Neut % (Auto) 74.0 H, Lymph % (Auto) 9.1 L, [place] % (Auto) 13.5 H, Eos % (Auto) 1.4, Baso % (Auto) 0.4, Absolute Neuts (auto) 4.2, Absolute Lymphs (auto) 0.51 L, Nucleated RBC % 0, Differential Comment SCANNED 04/15/22 18:57: Sodium 143, Potassium 4.7, Chloride 121 H, Carbon Dioxide 10.0 L , Anion Gap 12, BUN 127 H*, Creatinine 4.58 H, Estim Creat Clear Calc 15.38, Est GFR (MDRD) Af Amer 17 L, Est GFR (MDRD) Non-Af 14 L, BUN/Creatinine Ratio 27.7 H , Glucose 144 H, Calcium 8.3 L, Total Bilirubin 0.60, Direct Bilirubin 0.27, AST 36, ALT 52, Alkaline Phosphatase 181 H, Total Protein 6.4, Albumin 2.9 L, Globulin 3.5 04/15/22 18:57: Lactic Acid 1.5 04/15/22 20:15: Urine Color Yellow, Urine Clarity Cloudy, Urine pH 6.0, Ur Specific [place] 1.015, Urine Protein 500 H, Urine Glucose (UA) Normal, Urine Ketones Negative, Urine Occult Blood 250 H, Urine Nitrite Negative, Urine Bilirubin Negative, Urine Urobilinogen Normal, Ur Leukocyte Esterase 500 H, Urine RBC 50-100 SEEN, Urine WBC >100 SEEN, Ur Squamous Epith Cells 0-5 SEEN, Amorphous Sediment 1+ URATE, Urine Bacteria 4+, Urine Mucus 0 SEEN Radiology Impression Chest X-Ray 04/15/22 19:24 IMPRESSION: No acute radiographic abnormalities. Electronically Signed: Chino Puri MD at 20:50 EST , Assessment & Plan Assessment/Plan (1) UTI (urinary tract infection): (2) Acute kidney failure: PLAN: Plan #PRISCILLA on CKD stage IIIb with history of kidney transplant in 2016 years ago 2/2 ESRD secondary to atonic bladder Continue fluids Insert harman We will obtain urine studies Continue tacrolimus and mycophenolate Tacrolimus level Will consult nephrology I's and O's Will also obtain renal ultrasound #Urinary tract infection Urine cultures and blood cultures pending Given chronic self cathing, hx of multiple UTIs with various organisms, and borderline BP will start zosyn, if not improving or worsening can add vancomycin for broader coverage but likely not necessary at this time #History of atonic bladder Will insert Harman #Diarrhea w/ occasional nausea Patient had difficulty quantifying this but does report it has been problematic recently Will obtain stool studies Will obtain KUB #Intellectual disability Additionally has congenital nystagmus Chronic, mom reports mental status is at baseline and that he function somewhat at the level of a teenager per her report #History of VTE Mother reported that this has only happened with surgeries and has been provoked and is not on long-term anticoagulation #DVT ppx: Heparin subcu Linda Mercer MD Charges/Coding Visit Charges Inpatient E&M: 52314 Init Hosp L2
--- NOTE | 2022-04-15 21:58 | US_ITS ---
INDICATION: PRISCILLA on CKD, transplant hx EXAMINATION: Ultrasound US Kidney(s) complete (eg, kidneys and bladder) TECHNIQUE: Marr scale and color doppler images were obtained of the kidneys. COMPARISON: 02/13/2022 FINDINGS: RIGHT KIDNEY: [place] kidney 7.2 x 3.8 x 3.8 cm. Transplanted kidney 9.6 x 4.9 x 3.8 cm. [place] kidney shows marked dilatation of the pelvis with echogenic parenchyma. Transplant kidney without hydronephrosis, shadowing calculus or perinephric collection. LEFT KIDNEY: 8.0 x 2.8 x 2.6 cm. There is no hydronephrosis. Echogenic parenchyma without shadowing calculus or perinephric collection is demonstrated. Multiple cortical cysts, largest measures up to 1.6 cm. URINARY BLADDER: Irregular wall thickening with layering debris and septation. US/Kidney and Bladder IMPRESSION: Unremarkable right renal transplant. [place] kidneys with evidence of intrinsic medical renal disease and right hydronephrosis. Abnormal bladder, possible cystitis or other intrinsic bladder lesion. Consider correlation with cystoscopy. Electronically Signed: Peter Malloy MD at 0:31 EST ,
[2022-04-15 22:10] VITALS: BP 104/69; PULSE 69; RESP 17; TEMP 37; O2SAT 100
[2022-04-15 22:11] VITALS: BMI 16.8
[2022-04-15] MEDS: Tacrolimus 0.5 MG Capsule PO (22:13)
[2022-04-15] MEDS: Tacrolimus Anhydrous 1 MG Capsule PO (22:16)
[2022-04-15] MEDS: Mycophenolate Mofetil 250 MG Capsule 500 MG PO (22:16)
--- NOTE | 2022-04-15 23:05 | RAD_ITS ---
EXAM: XR ABDOMEN, 1 VIEW CLINICAL INDICATION: nausea and diarrhea TECHNIQUE: Frontal supine view of the abdomen/pelvis. This report was created using [employer] report generation technology. COMPARISON: None. FINDINGS: LOWER THORAX: No acute pathology. GASTROINTESTINAL TRACT: Unremarkable. Non-obstructive. No bowel or stomach distention. ORGANS: Unremarkable as visualized. No organomegaly. No abnormal calcifications. BONES/JOINTS: No acute pathology. SOFT TISSUES: No acute pathology. Surgical clips in the right pelvis. RAD/Abdomen Single View (Portable) IMPRESSION: Non-obstructive bowel gas pattern. Electronically Signed: Hans Atkinson MD at 2:15 EST ,
[2022-04-15] MEDS: Heparin Injection (Vial) 5,000 UNIT/ML VIAL 5000 UNIT SC (23:38)
[2022-04-16] VITALS (9 sets, daily range): BP systolic 86–107; BP diastolic 54–71; PULSE 76–87; RESP 15–17; TEMP 36.6–37; O2SAT 100
[2022-04-16 01:06] LABS: Urine Chloride 66 mmol/L (Not Establ.); Urine Sodium 74 mmol/L (Not Establ.)
[2022-04-16 01:07] LABS: Protein:Creat Ratio 3933 mg/g CRE (0-200)
[2022-04-16 01:45] LABS: Osmolality, Urine 421 mOsm/KG
[2022-04-16] MEDS: Heparin Injection (Vial) 5,000 UNIT/ML VIAL 5000 UNIT SC ×3 (05:11→20:57)
[2022-04-16 05:28] LABS: Absolute Lymphocyte Count 0.48 X10^3/uL (0.83-4.51); Absolute Neutrophil Count 3.5 X10^3/uL (2.0-7.7); Basophil# 0.02 X10^3/uL; Basophil% 0.4 % (0-1); Eosinophil# 0.16 X10^3/uL; Eosinophils% 3.4 % (0-5); Hemoglobin 9.5 g/dL (13.0-16.5); Lymphocyte # 0.48 X10^3/ul (0.83-4.51); Lymphocyte % 10.1 % (19-41); Mean Corp Hgb Conc 31.7 g/dL (32-36); Mean Corpuscular Hgb 29.4 pg (27.0-32.0); Mean Corpuscular Volume 92.9 fL (80-94); Mean Platelet Vol. 10.1 fl (6.2-12.0); Monocyte# 0.56 X10^3/uL; Monocyte% 11.8 % (0-10); NRBC Flagged by Analyzer 0 % (0-5); Neutrophil # 3.46 X10^3/uL (2.7-7.7); Neutrophil % 73.2 % (47-70); POSITIVE DIFFERENTIAL YES; Platelet Count 195 K/mm3 (150-450); RBC Distribution Width CV 13.9 % (11.6-14.6); RBC Distribution Width SD 47.3 fl (35.1-43.9); Red Blood Count 3.23 M/mm3 (4.6-6.2); White Blood Count 4.7 K/mm3 (4.4-11.0)
[2022-04-16 05:34] LABS: Differential Indicated SCAN CRITERIA MET
[2022-04-16 06:07] LABS: ALB/GLOB Ratio 0.8 RATIO (0.9-2.4); AST(SGOT) 33 U/L (15-37); Alanine Aminotransfer ALT/SGPT 44 U/L (16-61); Albumin, Serum 2.5 g/dL (3.2-5.0); Alkaline Phosphatase 158 U/L (45-117); Anion Gap 10 (5-15); BUN 121 mg/dL (7-18); BUN/Creat Ratio 28.9 RATIO (10-20); Calcium,Total 7.9 mg/dL (8.5-10.1); Chloride 123 mmol/L (98-107); Creatinine, Serum 4.19 mg/dL (0.70-1.30); EST Glomerular Filtration Rate 16 mL/min (>60); Est Glom Filt Rate - Afr Amer 19 mL/min (>60); Estimated Creatinine Clearance 16.99 ml/min; Globulin 3.2 g/dL (2.2-4.2); Glucose 106 mg/dL (74-106); Potassium 4.5 mmol/L (3.5-5.1); Protein, Total 5.7 g/dL (6.4-8.2); Sodium Level 144 mmol/L (136-145)
[2022-04-16 06:52] LABS: Burr Cells RARE; Differential Comment SCANNED
[2022-04-16] MEDS: 0.9% Normal Saline 1,000 ML 150 ML IV (06:56)
[2022-04-16] MEDS: Mycophenolate Mofetil 250 MG Capsule 500 MG PO ×2 (08:51→20:58)
[2022-04-16] MEDS: Tacrolimus Anhydrous 1 MG Capsule PO ×2 (10:11→21:03)
[2022-04-16] MEDS: Tacrolimus 0.5 MG Capsule PO ×2 (10:11→20:58)
--- NOTE | 2022-04-16 12:51 | CASEMGMT ---
Discharge Ironworker Machine Operator This movie writer sent updates to [place] [facility] via [facility]. Enma PAN Dairy Products Maker
--- NOTE | 2022-04-16 13:01 | CON.PCM.RE_ITS ---
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 in 2019. The patient also has a history of atonic bladder requiring CIC, hypertension, and intellectual disability. The patient is admitted on 04/15/2022 with complicated UTI in the setting of immunosuppression. Nephrology is following for PRISCILLA on CKD and for management of immunosuppression. Acute kidney injury on chronic kidney disease stage IIIb. The patient has a baseline chronic allograft dysfunction with serum creatinine of 2.00 mg/dL. Suspect PRISCILLA is secondary to prerenal azotemia from volume depletion and sepsis. Possible that prerenal PRISCILLA could also have progressed to ATN as well. Another possible cause of PRISCILLA would be less than over therapeutic level of tacro limus. The patient's mother tells me that he has been getting tacrolimus inconsistently at [facility]. Other possibility would be obstructive uropathy from atonic bladder although the patient has been performing CIC at [facility] prior to admission. Low suspicion for other causes of PRISCILLA at this point. Agree with volume expanding the patient with crystalloid. However, given his acidosis, I with switch IV fluid to LR instead of saline. I will check urine indices. Although the patient has metabolic acidosis, he appears to be compensated without significant dyspnea. He is not hyperkalemic. Therefore, there is no need for dialysis today. Current medications are reviewed, and they are appropriately dosed for his renal function Recheck renal function, volume status, acid-base status and electrolytes again tomorrow. Status post donor kidney transplantation in 2019. The patient is immunosuppressed with tacrolimus and mycophenolate only. He is not on corticosteroid. Check tacrolimus trough level tomorrow. Aim for tacrolimus level of between 5-10. Hypertension. The patient is currently off of antihypertensives because of low BP on presentat ion. He is currently stable on no antihypertensives. Complicated UTI. The patient is immunosuppressed in the setting of atonic bladder requiring CIC. Agree with insertion of Ga catheter. Awaiting culture data. He is currently being treated with piperacillin-tazobactam. Nephrology plan will be discussed with Dr. Reyes. HPI Consult Data Date of Consult: 04/16/22 HPI Narrative Reason for Consultation: PRISCILLA on CKD HPI Narrative: The patient is a 56-year-old man who is known to our service with ESRD secondary to obstructive nephropathy. He is status post donor kidney transplantation in 2019 at [facility]. The patient also has a history of intellectual disability, hypertension and atonic bladder requiring clean intermittent catheterization 4 times per day. The patient does have a history of recurrent UTI. The patient is a resident at [facility]. He presented to the hospital on 04/15/2022 with 4 to 5 days history of listlessness, anorexia, decreased oral intake, and loose bowel movement. Urinalysis in the emergency department is suggestive of recurrent UTI. Nephrology is asked to see the patient for management of PRISCILLA in the setting of kidney transplant. The patient does have a history of chronic allograft dysfunction with baseline serum creatinine of 2.00 mg/dL. He has mild dyspnea. However, there is no chest pain, nausea, or vomiting. There is no swelling of the lower extremities. The patient has not been on NSAIDs prior to admission. There has been no recent exposure to IV contrast. [facility] Medical History Anemia Bronchitis CKD (chronic kidney disease), stage III Congenital nystagmus DVT (deep venous thrombosis) HTN (hypertension) Mild intellectual disability Neurogenic bladder disorder Pancytopenia Pulmonary embolism Urinary retention Vocal cord dysfunction Home Medications mycophenolate mofetil 500 mg tablet 500 mg PO 0900,2100 Anti-Rejection 07/14/16 [History Last Taken 02/13/22] amlodipine 5 mg tablet 5 mg PO QHS BLOOD PRESSURE 09/29/17 [History Last Taken 1 ] tacrolimus 1 mg capsule, immediate-release 1 mg PO 0900,2100 ANTI-REJECTION 01/11/18 [History Last Taken 02/13/22] multivitamin 1 tab PO QHS 02/13/22 [History Last Taken 02/12/22] tacrolimus 0.5 mg capsule, immediate-release 0.5 mg PO 0900,2100 anti rejection 02/13/22 [History Last Taken 02/13/22] Allergy/AdvReac Type Severity Reaction Status Date / Time anything red AdvReac Hives Uncoded 04/15/22 18:30 Family History Mother Hypertension Father Diabetes Surgical History Kidney transplant recipient Renal transplant, status post S/P arteriovenous (AV) fistula creation Social History Smoking Status: Never smoker second hand exposure: No alcohol intake: never substance use type: does not use caffeine: No ROS ROS Narrative 02/09 ROS was done. They are otherwise noncontributory to what is already documented in HPI. Physical Exam Narrative General: Alert and oriented x3, no apparent distress. HEENT: Normocephalic, atraumatic. Mucous membrane dry without erythema. PERRLA, EOMI. Hearing is decreased. Neck: Supple, no JVD. No thyromegaly. Trachea is midline. Cardiovascular: Normal S1, S2. No rubs, murmurs, or gallops. Lungs: Clear to auscultation bilaterally. Abdomen: Normal bowel sound, soft, nontender, no guarding, or rebound. Extremities: The patient has aneurysmal right lower arm AV fistula which has good thrill and bruit. Otherwise, there is no clubbing, cyanosis or edema. Musculoskeletal: Full passive range of motion. No joint swelling. Skin: No rash, warm and dry. Neurologic: Cranial nerves 2 through 12 are grossly intact. No focal neurologic deficit. Psychiatric: Normal mood and affect. Lab / Micro Data Result Diagrams: 04/16/22 05:11 04/16/22 05:11 Labs: Laboratory Results - last 24 hr 04/15/22 18:57: WBC 5.6, RBC 3.53 L, Hgb 10.5 L, Hct 33.3 L, MCV 94.3 H, MCH 29.7, MCHC 31.5 L, RDW Std Deviation 47.2 H, RDW Coeff of Anil 13.9, Plt Count 252, MPV 10.4, Immature Gran % (Auto) 1.600 H, Neut % (Auto) 74.0 H, Lymph % (Auto) 9.1 L, [place] % (Auto) 13.5 H, Eos % (Auto) 1.4, Baso % (Auto) 0.4, Absolute Neuts (auto) 4.2, Absolute Lymphs (auto) 0.51 L, Nucleated RBC % 0, Differential Comment SCANNED 04/15/22 18:57: Sodium 143, Potassium 4.7, Chloride 121 H, Carbon Dioxide 10.0 L , Anion Gap 12, BUN 127 H*, Creatinine 4.58 H, Estim Creat Clear Calc 15.38, Est GFR (MDRD) Af Amer 17 L, Est GFR (MDRD) Non-Af 14 L, BUN/Creatinine Ratio 27.7 H , Glucose 144 H, Calcium 8.3 L, Total Bilirubin 0.60, Direct Bilirubin 0.27, AST 36, ALT 52, Alkaline Phosphatase 181 H, Total Protein 6.4, Albumin 2.9 L, Globulin 3.5 04/15/22 18:57: Lactic Acid 1.5 04/15/22 20:15: Urine Color Yellow, Urine Clarity Cloudy, Urine pH 6.0, Ur Specific [place] 1.015, Urine Protein 500 H, Urine Glucose (UA) Normal, Urine Ketones Negative, Urine Occult Blood 250 H, Urine Nitrite Negative, Urine Bilirubin Negative, Urine Urobilinogen Normal, Ur Leukocyte Esterase 500 H, Urine RBC 50-100 SEEN, Urine WBC >100 SEEN, Ur Squamous Epith Cells 0-5 SEEN, Amorphous Sediment 1+ URATE, Urine Bacteria 4+, Urine Mucus 0 SEEN 04/16/22 00:35: Miscellaneous Test Cancelled 04/16/22 00:35: Urine Osmolality 421, Ur Random Sodium 74, Urine Creatinine 105.00, Urine Potassium 23.0, Urine Chloride 66 04/16/22 00:35: U Random Total Protein 409.0 H, Urine Creatinine 104.00, Protein/Creatinin Ratio 3933 H 04/16/22 05:11: WBC 4.7, RBC 3.23 L, Hgb 9.5 L, Hct 30.0 L, MCV 92.9, MCH 29.4, MCHC 31.7 L, RDW Std Deviation 47.3 H, RDW Coeff of Anil 13.9, Plt Count 195, MPV 10.1, Immature Gran % (Auto) 1.100 H, Neut % (Auto) 73.2 H, Lymph % (Auto) 10.1 L, [place] % (Auto) 11.8 H, Eos % (Auto) 3.4, Baso % (Auto) 0.4, Absolute Neuts (auto) 3.5, Absolute Lymphs (auto) 0.48 L, Nucleated RBC % 0, Differential Comment SCANNED, [place] Cells RARE 04/16/22 05:11: Sodium 144, Potassium 4.5, Chloride 123 H, Carbon Dioxide 11.0 L , Anion Gap 10, BUN 121 H*, Creatinine 4.19 H, Estim Creat Clear Calc 16.99, Est GFR (MDRD) Af Amer 19 L, Est GFR (MDRD) Non-Af 16 L, BUN/Creatinine Ratio 28.9 H , Glucose 106, Calcium 7.9 L, Total Bilirubin 0.70, AST 33, ALT 44, Alkaline Phosphatase 158 H, Total Protein 5.7 L, Albumin 2.5 L, Globulin 3.2, Albumin/Globulin Ratio 0.8 L Micro: Microbiology 04/15/22 20:15 Urine Catheter - Catheter Urine Culture - Preliminary GNR lactose classroom technology coach Radiology Impression Chest X-Ray 04/15/22 19:24 IMPRESSION: No acute radiographic abnormalities. Electronically Signed: Chino Puri MD at 20:50 EST , Renal Ultrasound 04/15/22 21:58 IMPRESSION: Unremarkable right renal transplant. [place] kidneys with evidence of intrinsic medical renal disease and right hydronephrosis. Abnormal bladder, possible cystitis or other intrinsic bladder lesion. Consider correlation with cystoscopy. Electronically Signed: Peter Malloy MD at 0:31 EST , KUB X-Ray 04/15/22 23:05 IMPRESSION: Non-obstructive bowel gas pattern. Electronically Signed: Hans Atkinson MD at 2:15 EST ,
[2022-04-16] MEDS: Lactated Ringers 1,000 ML 150 ML IV ×2 (14:30→22:49)
--- NOTE | 2022-04-16 16:39 | PN.HOSP_ITS ---
Subjective Subjective Patient seen and examined. He had no active complaints and was resting calmly. Review of systems was otherwise negative. Objective Data Objective Data Vital Signs: Vital Signs Temp Pulse Resp BP Pulse Ox O2 Del Method 97.9 F 82 16 107/64 100 Room Air 04/16/22 10:10 04/16/22 10:10 04/16/22 10:10 04/16/22 10:10 04/16/22 10:10 04/16/22 10:10 Oxygen Delivery Method Room Air Weight: 131 lb 6.328 oz Body Mass Index (BMI) 16.8 Intake & Output: Intake and Output for Last 24 Hours 04/14/22 04/15/22 04/16/22 23:59 23:59 23:59 Intake Total 1707.5 / 1707.5 2100 / 2100 Output Total 500 / 500 300 / 300 Balance 1207.5 / 1207.5 1800 / 1800 Lab / Micro Data Result Diagrams: 04/16/22 05:11 04/16/22 05:11 Labs: Laboratory Results - last 24 hr 04/15/22 18:57: WBC 5.6, RBC 3.53 L, Hgb 10.5 L, Hct 33.3 L, MCV 94.3 H, MCH 29.7, MCHC 31.5 L, RDW Std Deviation 47.2 H, RDW Coeff of Anil 13.9, Plt Count 252, MPV 10.4, Immature Gran % (Auto) 1.600 H, Neut % (Auto) 74.0 H, Lymph % (Auto) 9.1 L, [place] % (Auto) 13.5 H, Eos % (Auto) 1.4, Baso % (Auto) 0.4, Absolute Neuts (auto) 4.2, Absolute Lymphs (auto) 0.51 L, Nucleated RBC % 0, Differential Comment SCANNED 04/15/22 18:57: Sodium 143, Potassium 4.7, Chloride 121 H, Carbon Dioxide 10.0 L , Anion Gap 12, BUN 127 H*, Creatinine 4.58 H, Estim Creat Clear Calc 15.38, Est GFR (MDRD) Af Amer 17 L, Est GFR (MDRD) Non-Af 14 L, BUN/Creatinine Ratio 27.7 H , Glucose 144 H, Calcium 8.3 L, Total Bilirubin 0.60, Direct Bilirubin 0.27, AST 36, ALT 52, Alkaline Phosphatase 181 H, Total Protein 6.4, Albumin 2.9 L, Globulin 3.5 04/15/22 18:57: Lactic Acid 1.5 04/15/22 20:15: Urine Color Yellow, Urine Clarity Cloudy, Urine pH 6.0, Ur Specific [place] 1.015, Urine Protein 500 H, Urine Glucose (UA) Normal, Urine Ketones Negative, Urine Occult Blood 250 H, Urine Nitrite Negative, Urine Bilirubin Negative, Urine Urobilinogen Normal, Ur Leukocyte Esterase 500 H, Urine RBC 50-100 SEEN, Urine WBC >100 SEEN, Ur Squamous Epith Cells 0-5 SEEN, Amorphous Sediment 1+ URATE, Urine Bacteria 4+, Urine Mucus 0 SEEN 04/16/22 00:35: Miscellaneous Test Cancelled 04/16/22 00:35: Urine Osmolality 421, Ur Random Sodium 74, Urine Creatinine 105.00, Urine Potassium 23.0, Urine Chloride 66 04/16/22 00:35: U Random Total Protein 409.0 H, Urine Creatinine 104.00, Protein/Creatinin Ratio 3933 H 04/16/22 05:11: WBC 4.7, RBC 3.23 L, Hgb 9.5 L, Hct 30.0 L, MCV 92.9, MCH 29.4, MCHC 31.7 L, RDW Std Deviation 47.3 H, RDW Coeff of Anil 13.9, Plt Count 195, MPV 10.1, Immature Gran % (Auto) 1.100 H, Neut % (Auto) 73.2 H, Lymph % (Auto) 10.1 L, [place] % (Auto) 11.8 H, Eos % (Auto) 3.4, Baso % (Auto) 0.4, Absolute Neuts (auto) 3.5, Absolute Lymphs (auto) 0.48 L, Nucleated RBC % 0, Differential Co mment SCANNED, Reymundo Cells RARE 04/16/22 05:11: Sodium 144, Potassium 4.5, Chloride 123 H, Carbon Dioxide 11.0 L , Anion Gap 10, BUN 121 H*, Creatinine 4.19 H, Estim Creat Clear Calc 16.99, Est GFR (MDRD) Af Amer 19 L, Est GFR (MDRD) Non-Af 16 L, BUN/Creatinine Ratio 28.9 H , Glucose 106, Calcium 7.9 L, Total Bilirubin 0.70, AST 33, ALT 44, Alkaline Phosphatase 158 H, Total Protein 5.7 L, Albumin 2.5 L, Globulin 3.2, Albumin/Globulin Ratio 0.8 L Micro: Microbiology 04/15/22 20:15 Urine Catheter - Catheter Urine Culture - Preliminary GNR lactose dental specialist Radiography Diagnostic Testing: Radiology Impression Chest X-Ray 04/15/22 19:24 IMPRESSION: No acute radiographic abnormalities. Electronically Signed: Chino Puri MD at 20:50 EST , Renal Ultrasound 04/15/22 21:58 IMPRESSION: Unremarkable right renal transplant. [place] kidneys with evidence of intrinsic medical renal disease and right hydronephrosis. Abnormal bladder, possible cystitis or other intrinsic bladder lesion. Consider correlation with cystoscopy. Electronically Signed: Peter Malloy MD at 0:31 EST , KUB X-Ray 04/15/22 23:05 IMPRESSION: Non-obstructive bowel gas pattern. Electronically Signed: Hans Atkinson MD at 2:15 EST , Physical Exam Const alert and no apparent distress Constitutional Narrative: speech a bit slurred and incomprehensible. appears to be his baseline HEENT head/scalp atraumatic Head and Scalp: normocephalic Mouth: dry mucous membranes Eyes PERRL, EOMs intact bilaterally and conjunctivae normal Eyes Narrative: nystagmus, which is chronic Neck no lymphadenopathy and supple Resp Resp Narrative: mildly diminished breath sounds bibasally, no wheezes or crackles. On room air Cardio regular rate, regular rhythm, S1 normal heart sound, S2 normal heart sound and no murmurs GI normal to inspection, nondistended, normoactive bowel sounds, soft to palpation, non-tender and non-distended Extremity normal to inspection, full ROM and no clubbing, cyanosis or edema Neuro CN's II-XII intact bilaterally, moves all extremities and no focal motor deficits Sensorium / Orientation: awake and alert Psych affect normal Assessment & Plan Assessment/Plan (1) Chronic kidney disease, stage 3b: (2) PRISCILLA (acute kidney injury): (3) UTI (urinary tract infection): PLAN: Plan #Acute in setting of ESRD * has underlying CKD 3B; baseline Cr is ~ . Cr was 4.58 on admission * has kidney transplant * nephrology on board * he has an atonic bladder and self caths ~ 4x daily * urine very cloudy on admission * on IV zosyn * being hydated with IVF as PRISCILLA on CKD 3B is thought to be due to pre renal causes * tacrolimus level pending * On tacrolimus and mycophenolate * #UTI * On IV Zosyn. Urine cultures pending. * Has history of recurrent UTIs. * nephrology on board * #Non-anion gap metabolic acidosis: Due to PRISCILLA. Been hydrated with fluid. Nephrology on board. #History of atonic bladder * self caths regularly daily. * DVT prophylaxis: Lovenox Charges/Coding Visit Charges Inpatient E&M: 57396 Subs Hosp L3
[2022-04-17] VITALS (9 sets, daily range): BP systolic 93–123; BP diastolic 45–73; PULSE 74–85; RESP 16–20; TEMP 36.7–37.3; O2SAT 98–100
[2022-04-17] MEDS: Lactated Ringers 1,000 ML 150 ML IV ×3 (05:27→21:36)
[2022-04-17] MEDS: Heparin Injection (Vial) 5,000 UNIT/ML VIAL 5000 UNIT SC ×3 (05:28→21:42)
[2022-04-17 06:57] LABS: Absolute Lymphocyte Count 0.57 X10^3/uL (0.83-4.51); Absolute Neutrophil Count 2.9 X10^3/uL (2.0-7.7); Basophil# 0.03 X10^3/uL; Basophil% 0.7 % (0-1); Eosinophils% 4.5 % (0-5); Hematocrit 26.8 % (40-54); Hemoglobin 8.9 g/dL (13.0-16.5); Lymphocyte # 0.57 X10^3/ul (0.83-4.51); Lymphocyte % 12.7 % (19-41); Mean Corp Hgb Conc 33.2 g/dL (32-36); Mean Corpuscular Hgb 30.6 pg (27.0-32.0); Mean Corpuscular Volume 92.1 fL (80-94); Mean Platelet Vol. 10.8 fl (6.2-12.0); Monocyte# 0.71 X10^3/uL; Monocyte% 15.8 % (0-10); NRBC Flagged by Analyzer 0 % (0-5); Neutrophil # 2.91 X10^3/uL (2.7-7.7); POSITIVE DIFFERENTIAL YES; Platelet Count 191 K/mm3 (150-450); Red Blood Count 2.91 M/mm3 (4.6-6.2); White Blood Count 4.5 K/mm3 (4.4-11.0)
[2022-04-17 07:10] LABS: Differential Indicated SCAN CRITERIA MET
[2022-04-17 07:16] LABS: Acanthocytes 1+; Burr Cells 1+
[2022-04-17 07:59] LABS: Albumin, Serum 2.2 g/dL (3.2-5.0); BUN 101 mg/dL (7-18); BUN/Creat Ratio 26.3 RATIO (10-20); Calcium,Total 7.4 mg/dL (8.5-10.1); Chloride 125 mmol/L (98-107); Creatinine, Serum 3.84 mg/dL (0.70-1.30); EST Glomerular Filtration Rate 18 mL/min (>60); Est Glom Filt Rate - Afr Amer 21 mL/min (>60); Estimated Creatinine Clearance 18.54 ml/min; Glucose 107 mg/dL (74-106); Phosphorus 4.4 mg/dL (2.5-4.9); Sodium Level 145 mmol/L (136-145)
--- NOTE | 2022-04-17 09:06 | PCM.PN.REN ---
Documented by User: JASS Irving 04/17/22 09:13 Subjective Subjective Following for PRISCILLA on CKD Patient sitting up in bed, denies any nausea or vomiting. No overnight events. Objective Data Objective Data Vital Signs: Vital Signs Temp Pulse Resp BP Pulse Ox O2 Del Method 98.9 F 82 16 123/45 H 99 Room Air 04/17/22 03:13 04/17/22 07:28 04/17/22 03:13 04/17/22 03:13 04/17/22 03:13 04/17/22 03:13 Oxygen Delivery Method Room Air Weight: 59.6 kg Body Mass Index (BMI) 16.8 Intake & Output: Intake and Output for Last 24 Hours 04/15/22 04/16/22 04/17/22 23:59 23:59 23:59 Intake Total 1707.5 / 1707.5 4470 / 4470 995 / 995 Output Total 500 / 500 1800 / 1800 350 / 350 Balance 1207.5 / 1207.5 2670 / 2670 645 / 645 Lab / Micro Data Result Diagrams: 04/17/22 06:15 04/17/22 06:15 Labs: Laboratory Results - last 24 hr 04/17/22 06:15: Sodium 145, Potassium 4.0, Chloride 125 H, Carbon Dioxide 10.0 L, BUN 101 H*, Creatinine 3.84 H, Estim Creat Clear Calc 18.54, Est GFR (MDRD) Af Amer 21 L, Est GFR (MDRD) Non-Af 18 L, BUN/Creatinine Ratio 26.3 H, Glucose 107 H, Calcium 7.4 L, Phosphorus 4.4, Albumin 2.2 L 04/17/22 06:15: WBC 4.5, RBC 2.91 L, Hgb 8.9 L, Hct 26.8 L, MCV 92.1, MCH 30.6, MCHC 33.2, RDW Std Deviation 47.0 H, RDW Coeff of Anil 14.0, Plt Count 191, MPV 10.8, Immature Gran % (Auto) 1.300 H, Neut % (Auto) 65.0, Lymph % (Auto) 12.7 L, [place] % (Auto) 15.8 H, Eos % (Auto) 4.5, Baso % (Auto) 0.7, Absolute Neuts (auto) 2.9, Absolute Lymphs (auto) 0.57 L, Nucleated RBC % 0, Re[place]undo Cells 1+, Acanthocytes (Spur) 1+ Micro: Microbiology 04/15/22 20:15 Urine Catheter - Catheter Urine Culture - Final Enterobacter cloacae complex Physical Exam Narrative General: Alert and oriented x3, no apparent distress. HEENT: Normocephalic, atraumatic. Mucous membranes dry Cardiovascular: Normal S1, S2. No rubs, murmurs, or gallops. Lungs: Clear to auscultation bilaterally. Abdomen: Normal bowel sounds, soft, nontender Extremities: The patient has aneurysmal right lower arm AV fistula which has good thrill and bruit. No edema to extremities. Assessment & Plan Assessment/Plan (1) PRISCILLA (acute kidney injury): (2) Chronic kidney disease, stage 3b: (3) Kidney transplant recipient: (4) Immunosuppressed status: (5) Bladder dysfunction: (6) UTI (urinary tract infection): PLAN: Plan Nonoliguric hypovolemic Acute kidney injury on chronic kidney disease stage IIIb. The patient has a baseline chronic allograft dysfunction with serum creatinine of 2.00 mg/dL. Suspect PRISCILLA is secondary to prerenal azotemia from volume depletion and sepsis. Possible that prerenal PRISCILLA could also have progressed to ATN. Another possible cause of PRISCILLA would be less than over therapeutic level of tacrolimus, patient has been getting tacrolimus inconsistently at [facility]. Other possibility would be obstructive uropathy from atonic bladder although the patient has been performing CIC at [facility] prior to admission. Low suspicion for other causes of PRISCILLA at this point Serum creatinine 4.58 mg/dL/BUN 127 on admission, today creatinine 3.8/BUN 101. UOP 1.8L yesterday There is no acute indication for [employer]. Labs ordered for tomorrow Continue on IV fluids, LR for another day. Status post donor kidney transplantation in 2019. The patient is immunosuppressed with tacrolimus and mycophenolate only. He is not on corticosteroid. tacrolimus trough level pending today Aim for tacrolimus level of between 5-10. Hypertension. The patient is currently off of antihypertensives, norvasc because of low BP on presentation. Bps have improved and is currently stable on no antihypertensives. Complicated UTI. The patient is immunosuppressed in the setting of atonic bladder requiring CIC. Now has Ga catheter. urine cx enterobacter cloacae complex. Blood cx pending He is currently being treated with piperacillin-tazobactam. Documented by User: Dr. Jeannine Minor MD 04/17/22 15:45 Objective Data Lab / Micro Data Result Diagrams: 04/17/22 06:15 04/17/22 06:15 Assessment & Plan Assessment/Plan (1) PRISCILLA (acute kidney injury): (2) Chronic kidney disease, stage 3b: (3) Kidney transplant recipient: (4) Immunosuppressed status: (5) Bladder dysfunction: (6) UTI (urinary tract infection): PLAN: Plan Nonoliguric hypovolemic Acute kidney injury on chronic kidney disease stage IIIb. The patient has a baseline chronic allograft dysfunction with serum creatinine of 2.00 mg/dL. Suspect PRISCILLA is secondary to prerenal azotemia from volume depletion and sepsis. Possible that prerenal PRISCILLA could also have progressed to ATN. Another possible cause of PRISCILLA would be less than over therapeutic level of tacrolimus, patient has been getting tacrolimus inconsistently at [facility]. Other possibility would be obstructive uropathy from atonic bladder although the patient has been performing CIC at [facility] prior to admission. Low suspicion for other causes of PRISCILLA at this point Serum creatinine 4.58 mg/dL/BUN 127 on admission, today creatinine 3.8/BUN 101. UOP 1.8L yesterday There is no acute indication for [employer]. Labs ordered for tomorrow Continue on IV fluids, LR for another day. Status post donor kidney transplantation in 2019. The patient is immunosuppressed with tacrolimus and mycophenolate only. He is not on corticosteroid. tacrolimus trough level pending today Aim for tacrolimus level of between 5-10. Hypertension. The patient is currently off of antihypertensives, norvasc because of low BP on presentation. Bps have improved and is currently stable on no antihypertensives. Complicated UTI. The patient is immunosuppressed in the setting of atonic bladder requiring CIC. Now has Ga catheter. urine cx enterobacter cloacae complex. Blood cx pending He is currently being treated with piperacillin-tazobactam. Nephrology attending addendum: The patient is personally seen and examined. Nurse practitioner's note reflects my independent medical decision making with my notation below. Following for PRISCILLA on CKD. The patient denies chest pain, shortness of breath, or nausea today. Vital signs and examination as above. Lungs are clear to auscultation anteriorly. Heart tones normal. There is no lower extremity edema. 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 The patient also has a history of atonic bladder requiring CIC, hypertension, and intellectual disability. The patient is admitted on 04/15/2022 with complicated UTI in the setting of immunosuppression.? Nephrology is following for PRISCILLA on CKD and for management of immunosuppression. Acute kidney injury on chronic kidney disease stage IIIb. The patient has a baseline chronic allograft dysfunction with serum creatinine of 2.00 mg/dL. PRISCILLA is secondary to prerenal azotemia from volume depletion and sepsis.? Possible that prerenal PRISCILLA has progressed to ATN as well. Another possible cause of PRISCILLA would be less than over therapeutic level of tacrolimus.? The patient's mother tells me that he has been getting tacrolimus inconsistently at [facility]. Tacrolimus trough level sent on 04/16/2022 still pending. Ultrasound of the transplanted kidney from 04/15/2022 did not show obstruction. Low suspicion for other causes of PRISCILLA at this point. Agree with volume expanding the patient with crystalloid.? However, given his acidosis, I switched IV fluid to LR yesterday afternoon instead of saline. Although the patient has metabolic acidosis, he appears to be compensated without significant dyspnea.? He is not hyperkalemic.? Therefore, there is no need for dialysis today. Current medications are reviewed, and they are appropriately dosed for his renal function Recheck renal function, volume status, acid-base status and electrolytes again tomorrow. Status post donor kidney transplantation in 2019. The patient is immunosuppressed with tacrolimus and mycophenolate only.? He is not on corticosteroid. Tacrolimus trough level is still pending. Aim for tacrolimus level of between 5-10. Hypertension. The patient is currently off of antihypertensives because of low BP on presentation. He is currently stable on no antihypertensives. Complicated UTI.??The patient is immunosuppressed in the setting of atonic bladder requiring CIC. Urine culture is growing Enterobacter. Agree with insertion of Ga catheter. He is currently being treated with piperacillin-tazobactam. Nephrology plan will be discussed with Dr. Reyes.
[2022-04-17] MEDS: Tacrolimus 0.5 MG Capsule PO ×2 (09:09→21:43)
[2022-04-17] MEDS: Tacrolimus Anhydrous 1 MG Capsule PO ×2 (09:09→21:42)
[2022-04-17] MEDS: Mycophenolate Mofetil 250 MG Capsule 500 MG PO ×2 (09:10→21:42)
[2022-04-17] MEDS: 0.9% Saline Lock 10 ML Syringe IV (09:13)
--- NOTE | 2022-04-17 10:11 | PN.HOSP_ITS ---
Subjective Subjective Patient seen and examined. He has no active complaints today. He was reported as having diarrhea but he says it has improved. Review of systems otherwise negative. BUN and creatinine have trended downwards. Objective Data Objective Data Vital Signs: Vital Signs Temp Pulse Resp BP Pulse Ox O2 Del Method 98.9 F 82 16 123/45 H 99 Room Air 04/17/22 03:13 04/17/22 07:28 04/17/22 03:13 04/17/22 03:13 04/17/22 03:13 04/17/22 03:13 Oxygen Delivery Method Room Air Weight: 131 lb 6.328 oz Body Mass Index (BMI) 16.8 Intake & Output: Intake and Output for Last 24 Hours 04/15/22 04/16/22 04/17/22 23:59 23:59 23:59 Intake Total 1707.5 / 1707.5 4470 / 4470 995 / 995 Output Total 500 / 500 1800 / 1800 350 / 350 Balance 1207.5 / 1207.5 2670 / 2670 645 / 645 Lab / Micro Data Result Diagrams: 04/17/22 06:15 04/17/22 06:15 Labs: Laboratory Results - last 24 hr 04/17/22 06:15: Sodium 145, Potassium 4.0, Chloride 125 H, Carbon Dioxide 10.0 L , BUN 101 H*, Creatinine 3.84 H, Estim Creat Clear Calc 18.54, Est GFR (MDRD) Af Amer 21 L, Est GFR (MDRD) Non-Af 18 L, BUN/Creatinine Ratio 26.3 H, Glucose 107 H, Calcium 7.4 L, Phosphorus 4.4, Albumin 2.2 L 04/17/22 06:15: WBC 4.5, RBC 2.91 L, Hgb 8.9 L, Hct 26.8 L, MCV 92.1, MCH 30.6, MCHC 33.2, RDW Std Deviation 47.0 H, RDW Coeff of Anil 14.0, Plt Count 191, MPV 10.8, Immature Gran % (Auto) 1.300 H, Neut % (Auto) 65.0, Lymph % (Auto) 12.7 L, [place] % (Auto) 15.8 H, Eos % (Auto) 4.5, Baso % (Auto) 0.7, Absolute Neuts (auto) 2.9, Absolute Lymphs (auto) 0.57 L, Nucleated RBC % 0, [place] Cells 1+, Acanthocytes (Spur) 1+ Micro: Microbiology 04/15/22 18:57 Blood Culture (Wb) - Left Forearm Blood Culture - Preliminary 04/15/22 20:15 Urine Catheter - Catheter Urine Culture - Final Enterobacter cloacae complex Physical Exam Const alert and no apparent distress Constitutional Narrative: speech a bit slurred and incomprehensible. appears to be his baseline General Appearance: uncooperative HEENT normocephalic, head/scalp atraumatic and moist oral mucous membranes Head and Scalp: normocephalic Mouth: oral and palatal mucosa normal Eyes PERRL, EOMs intact bilaterally and conjunctivae normal Eyes Narrative: nystagmus, which is chronic Neck no lymphadenopathy and supple Resp normal respiratory effort and clear to auscultation bilaterally Resp Narrative: mildly diminished breath sounds bibasally, no wheezes or crackles. On room air Cardio regular rate, regular rhythm, S1 normal heart sound, S2 normal heart sound and no murmurs GI normal to inspection, nondistended, normoactive bowel sounds, soft to palpation, non-tender and non-distended Extremity normal to inspection, full ROM and no clubbing, cyanosis or edema Neuro CN's II-XII intact bilaterally, moves all extremities and no focal motor deficits Sensorium / Orientation: awake and alert Motor Exam: strength 5/5 throughout Psych Psych Narrative: Cooperative Assessment & Plan Assessment/Plan (1) Chronic kidney disease, stage 3b: (2) PRISCILLA (acute kidney injury): (3) UTI (urinary tract infection): PLAN: Plan #PRISCILLA in setting of ESRD * baseline Cr is ~ . Cr was 4.58 on admission * Cr is down to 3.84 * has kidney transplant * nephrology on board * he has an atonic bladder and self caths ~ 4x daily * continue gentle hydration wth IVF * on IV zosyn * tacrolimus level pending * On tacrolimus and mycophenolate * on IVF Ringer's lactate * #UTI * On IV Zosyn. Urine cultures growing Enterobacter cloacae. * Has history of recurrent UTIs. * nephrology on board * #Non-anion gap metabolic acidosis: * Due to PRISCILLA. Bicarb is 10 today. * Being hydrated with Ringer's lactate. Nephrology on board. #History of atonic bladder * self caths regularly daily. * DVT prophylaxis: Lovenox Charges/Coding Visit Charges Inpatient E&M: 45769 Subs Hosp L3
--- NOTE | 2022-04-17 13:29 | CASEMGMT ---
STUART sent OT evaluation for [facility] to get pre-cert for patient. STUART will also talk with patient's mom letting her know SNF short term rehab is being recommended for patient prior to return to [place]. Plan: [facility] pending insurance approval and patient being medically ready. Anna Kirby [employer] TEACHER CHRISTINE
--- NOTE | 2022-04-17 13:44 | CASEMGMT ---
SW went to patient's room as patient's mom was present. STUART introduced self and role at [facility]. SW let patient's mom know that [facility] would prefer [facility] for rehab prior to returning to his [place]. She was in agreement. Plan: [facility] pending insurance approval and patient being medically ready. Anna Kirby MOLD SHAKER CHRISTINE
[2022-04-18] VITALS (8 sets, daily range): BP systolic 95–109; BP diastolic 63–73; PULSE 67–81; RESP 16–18; TEMP 36.3–37.4; O2SAT 97–100
[2022-04-18] MEDS: Lactated Ringers 1,000 ML 150 ML IV ×2 (04:47→10:27)
[2022-04-18] MEDS: Heparin Injection (Vial) 5,000 UNIT/ML VIAL 5000 UNIT SC ×3 (04:48→23:23)
[2022-04-18 07:58] LABS: BUN 88 mg/dL (7-18); BUN/Creat Ratio 26.9 RATIO (10-20); Calcium,Total 7.6 mg/dL (8.5-10.1); Chloride 123 mmol/L (98-107); Creatinine, Serum 3.27 mg/dL (0.70-1.30); EST Glomerular Filtration Rate 21 mL/min (>60); Est Glom Filt Rate - Afr Amer 25 mL/min (>60); Estimated Creatinine Clearance 21.77 ml/min; Glucose 87 mg/dL (74-106); Phosphorus 3.3 mg/dL (2.5-4.9); Potassium 4.2 mmol/L (3.5-5.1); Sodium Level 144 mmol/L (136-145)
[2022-04-18] MEDS: Tacrolimus Anhydrous 1 MG Capsule PO ×2 (08:24→23:22)
[2022-04-18] MEDS: Mycophenolate Mofetil 250 MG Capsule 500 MG PO ×2 (08:24→23:19)
[2022-04-18] MEDS: Tacrolimus 0.5 MG Capsule PO ×2 (08:25→23:21)
--- NOTE | 2022-04-18 10:25 | PN.HOSP_ITS ---
Subjective Subjective Patient seen and examined. He complained of diarrhea overnight. Review of systems is otherwise negative. HE did test positive for norovirus yesterday. Review of systems is otherwise negative. Objective Data Objective Data Vital Signs: Vital Signs Temp Pulse Resp BP Pulse Ox O2 Del Method 97.8 F 67 16 108/66 97 Room Air 04/18/22 09:18 04/18/22 09:18 04/18/22 09:18 04/18/22 09:18 04/18/22 09:18 04/18/22 09:18 Oxygen Delivery Method Room Air Weight: 131 lb 6.328 oz Body Mass Index (BMI) 16.8 Intake & Output: Intake and Output for Last 24 Hours 04/16/22 04/17/22 04/18/22 23:59 23:59 23:59 Intake Total 4470 / 4470 4435 / 4435 1710 / 1710 Output Total 1800 / 1800 1325 / 1525 200 / 200 Balance 2670 / 2670 3110 / 2910 1510 / 1510 Lab / Micro Data Result Diagrams: 04/17/22 06:15 04/18/22 06:40 Labs: Laboratory Results - last 24 hr 04/18/22 06:40: Sodium 144, Potassium 4.2, Chloride 123 H, Carbon Dioxide 10.0 L , BUN 88 H, Creatinine 3.27 H, Estim Creat Clear Calc 21.77, Est GFR (MDRD) Af Amer 25 L, Est GFR (MDRD) Non-Af 21 L, BUN/Creatinine Ratio 26.9 H, Glucose 87, Calcium 7.6 L, Phosphorus 3.3, Albumin 2.0 L Micro: Microbiology 04/15/22 19:50 Blood Culture (Wb) - Left Wrist Blood Culture - Preliminary No growth in 48 hours. 04/17/22 10:00 Stool Enteric Bacteriology - Final Norovirus 04/15/22 18:57 Blood Culture (Wb) - Left Forearm Bacteria Detection (PCR) - Final 04/15/22 18:57 Blood Culture (Wb) - Left Forearm Blood Culture - Preliminary 04/15/22 20:15 Urine Catheter - Catheter Urine Culture - Final Enterobacter cloacae complex Physical Exam Const alert and no apparent distress Constitutional Narrative: speech a bit slurred and incomprehensible. appears to be his baseline General Appearance: uncooperative HEENT normocephalic, head/scalp atraumatic and moist oral mucous membranes Head and Scalp: normocephalic Mouth: oral and palatal mucosa normal Eyes PERRL, EOMs intact bilaterally and conjunctivae normal Eyes Narrative: nystagmus, which is chronic Neck no lymphadenopathy and supple Resp normal respiratory effort and clear to auscultation bilaterally Resp Narrative: mildly diminished breath sounds bibasally, no wheezes or crackles. On room air Cardio regular rate, regular rhythm, S1 normal heart sound, S2 normal heart sound and no murmurs GI normal to inspection, nondistended, normoactive bowel sounds, soft to palpation, non-tender and non-distended Extremity normal to inspection, full ROM and no clubbing, cyanosis or edema Neuro CN's II-XII intact bilaterally, moves all extremities and no focal motor deficits Sensorium / Orientation: awake and alert Motor Exam: strength 5/5 throughout Psych affect normal Psych Narrative: Cooperative Assessment & Plan Assessment/Plan (1) Chronic kidney disease, stage 3b: (2) PRISCILLA (acute kidney injury): (3) UTI (urinary tract infection): PLAN: Plan #PRISCILLA in setting of ESRD * baseline Cr is ~ . Cr was 4.58 on admission * Cr is down to 3.27. * has kidney transplant * nephrology on board * he has an atonic bladder and self caths ~ 4x daily * continue gentle hydration wth IVF * on IV zosyn * tacrolimus level pending * On tacrolimus and mycophenolate * on IVF Ringer's lactate * #UTI * On IV Zosyn. Urine cultures growing Enterobacter cloacae. * Has history of recurrent UTIs. * nephrology on board * #Diarrhea due to Norovirus infection * tested positive for Norovirus. * complained of diarrhea overnight. * has tested positive for norovirus previously * hydrate gently with IVF. * supportive treatment for norovirus infection * #Non-anion gap metabolic acidosis: * Due to PRISCILLA. Bicarb remains 10 today. * anion gap is 9 * Being hydrated with Ringer's lactate. Nephrology on board. #History of atonic bladder * self caths regularly daily. * stable * DVT prophylaxis: Lovenox Charges/Coding Visit Charges Inpatient E&M: 03743 Subs Hosp L2
--- NOTE | 2022-04-18 15:25 | PCM.PN.REN ---
Subjective Subjective No new complaints Objective Data Objective Data Vital Signs: Vital Signs Temp Pulse Resp BP Pulse Ox O2 Del Method 97.8 F 67 16 108/66 97 Room Air 04/18/22 09:18 04/18/22 09:18 04/18/22 09:18 04/18/22 09:18 04/18/22 09:18 04/18/22 10:00 Oxygen Delivery Method Room Air Weight: 59.6 kg Body Mass Index (BMI) 16.8 Intake & Output: Intake and Output for Last 24 Hours 04/16/22 04/17/22 04/18/22 23:59 23:59 23:59 Intake Total 4470 / 4470 4435 / 4435 2345 / 2345 Output Total 1800 / 1800 1325 / 1525 200 / 200 Balance 2670 / 2670 3110 / 2910 2145 / 2145 Lab / Micro Data Result Diagrams: 04/17/22 06:15 04/18/22 06:40 Labs: Laboratory Results - last 24 hr 04/18/22 06:40: Sodium 144, Potassium 4.2, Chloride 123 H, Carbon Dioxide 10.0 L, BUN 88 H, Creatinine 3.27 H, Estim Creat Clear Calc 21.77, Est GFR (MDRD) Af Amer 25 L, Est GFR (MDRD) Non-Af 21 L, BUN/Creatinine Ratio 26.9 H, Glucose 87, Calcium 7.6 L, Phosphorus 3.3, Albumin 2.0 L Micro: Microbiology 04/15/22 18:57 Blood Culture (Wb) - Left Forearm Bacteria Detection (PCR) - Final 04/15/22 18:57 Blood Culture (Wb) - Left Forearm Blood Culture - Preliminary Presumptive Micrococcus spp. 04/15/22 19:50 Blood Culture (Wb) - Left Wrist Blood Culture - Preliminary No growth in 48 hours. 04/17/22 10:00 Stool Enteric Bacteriology - Final Norovirus 04/15/22 20:15 Urine Catheter - Catheter Urine Culture - Final Enterobacter cloacae complex Physical Exam Narrative General: Alert and oriented x3, no apparent distress. HEENT: Normocephalic, atraumatic. Mucous membranes dry Cardiovascular: Normal S1, S2. No rubs, murmurs, or gallops. Lungs: Clear to auscultation bilaterally. Abdomen: Normal bowel sounds, soft, nontender Extremities: The patient has aneurysmal right lower arm AV fistula which has good thrill and bruit. No edema to extremities. Assessment & Plan Assessment/Plan (1) PRISCILLA (acute kidney injury): (2) Chronic kidney disease, stage 3b: (3) Kidney transplant recipient: (4) Immunosuppressed status: (5) Bladder dysfunction: (6) UTI (urinary tract infection): PLAN: Plan Nonoliguric hypovolemic Acute kidney injury on chronic kidney disease stage IIIb. The patient has a baseline chronic allograft dysfunction with serum creatinine of 2.00 mg/dL. Suspect PRISCILLA is secondary to prerenal azotemia from volume depletion and sepsis. Possible that prerenal PRISCILLA could also have progressed to ATN. Another possible cause of PRISCILLA would be less than over therapeutic level of tacrolimus, patient has been getting tacrolimus inconsistently at [facility]. Other possibility would be obstructive uropathy from atonic bladder although the patient has been performing [facility] at [facility]F prior to admission. Creatinine is better Status post donor kidney transplantation in 2019. The patient is immunosuppressed with tacrolimus and mycophenolate only. He is not on corticosteroid. tacrolimus trough level pending today Aim for tacrolimus level of between 5-10. Hypertension. The patient is currently off of antihypertensives, norvasc because of low BP on presentation. Complicated UTI. The patient is immunosuppressed in the setting of atonic bladder requiring CIC. Now has Ga catheter. urine cx enterobacter cloacae complex. Blood cx pending He is currently being treated with antibiotics as per primary Discussed with mother at bedside. I was in the process of trying to see if we can arrange long-acting immunosuppressants but ran into logistical issues with limited transportation for him. We will change IV fluids to bicarbonate today. Tested positive for norovirus and urine culture positive for enterobacter.
[2022-04-18] MEDS: 0.9% Saline Lock 10 ML Syringe IV (16:27)
[2022-04-19] VITALS (8 sets, daily range): BP systolic 94–108; BP diastolic 53–66; PULSE 72–81; RESP 16–18; TEMP 36.1–36.6; O2SAT 99–100
[2022-04-19] MEDS: Heparin Injection (Vial) 5,000 UNIT/ML VIAL 5000 UNIT SC ×3 (06:10→21:28)
[2022-04-19 06:11] LABS: Absolute Lymphocyte Count 0.44 X10^3/uL (0.83-4.51); Absolute Neutrophil Count 2.8 X10^3/uL (2.0-7.7); Basophil# 0.01 X10^3/uL; Basophil% 0.3 % (0-1); Eosinophil# 0.13 X10^3/uL; Eosinophils% 3.4 % (0-5); Hematocrit 26.7 % (40-54); Hemoglobin 8.6 g/dL (13.0-16.5); Lymphocyte # 0.44 X10^3/ul (0.83-4.51); Lymphocyte % 11.5 % (19-41); Mean Corp Hgb Conc 32.2 g/dL (32-36); Mean Corpuscular Hgb 29.8 pg (27.0-32.0); Mean Corpuscular Volume 92.4 fL (80-94); Monocyte# 0.45 X10^3/uL; Monocyte% 11.8 % (0-10); NRBC Flagged by Analyzer 0 % (0-5); Neutrophil # 2.76 X10^3/uL (2.7-7.7); Neutrophil % 72.2 % (47-70); POSITIVE DIFFERENTIAL YES; Platelet Count 183 K/mm3 (150-450); RBC Distribution Width SD 47.8 fl (35.1-43.9); Red Blood Count 2.89 M/mm3 (4.6-6.2); White Blood Count 3.8 K/mm3 (4.4-11.0)
[2022-04-19 06:35] LABS: Differential Indicated SCAN CRITERIA MET
[2022-04-19 06:42] LABS: Albumin, Serum 2.1 g/dL (3.2-5.0); BUN 78 mg/dL (7-18); BUN/Creat Ratio 24.9 RATIO (10-20); Calcium,Total 7.9 mg/dL (8.5-10.1); Chloride 123 mmol/L (98-107); Creatinine, Serum 3.13 mg/dL (0.70-1.30); EST Glomerular Filtration Rate 22 mL/min (>60); Est Glom Filt Rate - Afr Amer 27 mL/min (>60); Estimated Creatinine Clearance 22.74 ml/min; Glucose 118 mg/dL (74-106); Phosphorus 2.9 mg/dL (2.5-4.9); Potassium 4.5 mmol/L (3.5-5.1); Sodium Level 145 mmol/L (136-145)
[2022-04-19 07:13] LABS: Differential Comment SCANNED
[2022-04-19 07:14] LABS: Acanthocytes RARE; Ovalocyte RARE
[2022-04-19] MEDS: Menthol/Lanolin/Calamine/Znox 113 GM Tube 1 APPLIC TOPICAL ×2 (10:40→21:31)
[2022-04-19] MEDS: Mycophenolate Mofetil 250 MG Capsule 500 MG PO ×2 (10:41→21:35)
[2022-04-19] MEDS: Tacrolimus Anhydrous 1 MG Capsule PO ×2 (10:41→21:36)
[2022-04-19] MEDS: Tacrolimus 0.5 MG Capsule PO ×2 (10:41→21:37)
--- NOTE | 2022-04-19 13:48 | PN.HOSP_ITS ---
Subjective Subjective Patient seen and examined. He was just waking up from sleep. HE had no active complaints. His BP is running a bit low at 94/58. REview of systems is otherwise negative. Objective Data Objective Data Vital Signs: Vital Signs Temp Pulse Resp BP Pulse Ox O2 Del Method 97.7 F L 73 16 94/58 L 99 Room Air 04/19/22 10:31 04/19/22 10:31 04/19/22 10:31 04/19/22 10:31 04/19/22 10:31 04/19/22 10:31 Oxygen Delivery Method Room Air Weight: 131 lb 6.328 oz Body Mass Index (BMI) 16.8 Intake & Output: Intake and Output for Last 24 Hours 04/17/22 04/18/22 04/19/22 23:59 23:59 23:59 Intake Total 4435 / 4435 2595 / 2595 1976.67 / 1975.67 Output Total 1325 / 1525 1050 / 1750 1200 / 1200 Balance 3110 / 2910 1545 / 845 776.67 / 776.67 Lab / Micro Data Result Diagrams: 04/19/22 06:00 04/19/22 06:00 Labs: Laboratory Results - last 24 hr 04/19/22 06:00: WBC 3.8 L, RBC 2.89 L, Hgb 8.6 L, Hct 26.7 L, MCV 92.4, MCH 29.8, MCHC 32.2, RDW Std Deviation 47.8 H, RDW Coeff of Anil 14.0, Plt Count 183, MPV 10.0, Immature Gran % (Auto) 0.800, Neut % (Auto) 72.2 H, Lymph % (Auto) 11.5 L, [place] % (Auto) 11.8 H, Eos % (Auto) 3.4, Baso % (Auto) 0.3, Absolute Neuts (auto) 2.8, Absolute Lymphs (auto) 0.44 L, Nucleated RBC % 0, Differential Comment SCANNED, Ovalocytes RARE, Acanthocytes (Spur) RARE 04/19/22 06:00: Sodium 145, Potassium 4.5, Chloride 123 H, Carbon Dioxide 12.0 L , BUN 78 H, Creatinine 3.13 H, Estim Creat Clear Calc 22.74, Est GFR (MDRD) Af Amer 27 L, Est GFR (MDRD) Non-Af 22 L, BUN/Creatinine Ratio 24.9 H, Glucose 118 H, Calcium 7.9 L, Phosphorus 2.9, Albumin 2.1 L Micro: Microbiology 04/15/22 18:57 Blood Culture (Wb) - Left Forearm Bacteria Detection (PCR) - Final 04/15/22 18:57 Blood Culture (Wb) - Left Forearm Blood Culture - Preliminary Presumptive Micrococcus spp. 04/15/22 19:50 Blood Culture (Wb) - Left Wrist Blood Culture - Preliminary No growth in 48 hours. 04/17/22 10:00 Stool Enteric Bacteriology - Final Norovirus 04/15/22 20:15 Urine Catheter - Catheter Urine Culture - Final Enterobacter cloacae complex Physical Exam Const alert and no apparent distress Constitutional Narrative: speech a bit slurred and incomprehensible. appears to be his baseline HEENT normocephalic, head/scalp atraumatic and moist oral mucous membranes Eyes PERRL, EOMs intact bilaterally and conjunctivae normal Eyes Narrative: nystagmus, which is chronic Neck no lymphadenopathy and supple Resp normal respiratory effort and clear to auscultation bilaterally Resp Narrative: mildly diminished breath sounds bibasally, no wheezes or crackles. On room air Cardio regular rate, regular rhythm, S1 normal heart sound, S2 normal heart sound and no murmurs GI normal to inspection, nondistended, normoactive bowel sounds, soft to palpation, non-tender and non-distended GI Narrative: Mild tender to palpation diffusely Extremity normal to inspection, full ROM and no clubbing, cyanosis or edema Extremity Narrative: No edema appreciated, moves all extremities Neuro CN's II-XII intact bilaterally, moves all extremities and no focal motor deficits Sensorium / Orientation: awake and alert Motor Exam: strength 5/5 throughout Psych affect normal Psych Narrative: Cooperative Assessment & Plan Assessment/Plan (1) Chronic kidney disease, stage 3b: (2) PRISCILLA (acute kidney injury): (3) UTI (urinary tract infection): PLAN: Plan #PRISCILLA in setting of ESRD * baseline Cr is ~ . Cr was 4.58 on admission * Cr is down to 3.13 today. * has kidney transplant * nephrology on board * he has an atonic bladder and self caths ~ 4x daily * continue gentle hydration wth IVF * on IV zosyn * tacrolimus level pending * On tacrolimus and mycophenolate * on IVF Ringer's lactate * #UTI * On IV Zosyn. Urine cultures growing Enterobacter cloacae. * Has history of recurrent UTIs. * nephrology on board * #Diarrhea due to Norovirus infection * tested positive for Norovirus. * still having diarrhea * has tested positive for norovirus previously * hydrate gently with IVF. * supportive treatment for norovirus infection * in precautions * #Non-anion gap metabolic acidosis: * Due to PRISCILLA. Bicarb remains 10 today. * anion gap is 9 * Being hydrated with Ringer's lactate. Nephrology on board. #History of atonic bladder * self caths regularly daily. * stable #Anemia * Hb is 8.6. Baseline is ~ 9-10. * WIill monitor and trend. * if it drops some more, check stool for occult blood and do further workup * DVT prophylaxis: Lovenox Charges/Coding Visit Charges Inpatient E&M: 44638 Subs Hosp L2
--- NOTE | 2022-04-19 16:39 | PCM.PN.REN ---
Subjective Subjective no new events Objective Data Objective Data Vital Signs: Vital Signs Temp Pulse Resp BP Pulse Ox O2 Del Method 97.7 F L 81 16 94/58 L 99 Room Air 04/19/22 10:31 04/19/22 15:03 04/19/22 10:31 04/19/22 10:31 04/19/22 10:31 04/19/22 10:31 Oxygen Delivery Method Room Air Weight: 59.6 kg Body Mass Index (BMI) 16.8 Intake & Output: Intake and Output for Last 24 Hours 04/17/22 04/18/22 04/19/22 23:59 23:59 23:59 Intake Total 4435 / 4435 2595 / 2595 2426.67 / 2426.67 Output Total 1325 / 1525 1050 / 1750 1700 / 1700 Balance 3110 / 2910 1545 / 845 726.67 / 726.67 Lab / Micro Data Result Diagrams: 04/19/22 06:00 04/19/22 06:00 Labs: Laboratory Results - last 24 hr 04/19/22 06:00: WBC 3.8 L, RBC 2.89 L, Hgb 8.6 L, Hct 26.7 L, MCV 92.4, MCH 29.8, MCHC 32.2, RDW Std Deviation 47.8 H, RDW Coeff of Anil 14.0, Plt Count 183, MPV 10.0, Immature Gran % (Auto) 0.800, Neut % (Auto) 72.2 H, Lymph % (Auto) 11.5 L, [place] % (Auto) 11.8 H, Eos % (Auto) 3.4, Baso % (Auto) 0.3, Absolute Neuts (auto) 2.8, Absolute Lymphs (auto) 0.44 L, Nucleated RBC % 0, Differential Comment SCANNED, Ovalocytes RARE, Acanthocytes (Spur) RARE 04/19/22 06:00: Sodium 145, Potassium 4.5, Chloride 123 H, Carbon Dioxide 12.0 L, BUN 78 H, Creatinine 3.13 H, Estim Creat Clear Calc 22.74, Est GFR (MDRD) Af Amer 27 L, Est GFR (MDRD) Non-Af 22 L, BUN/Creatinine Ratio 24.9 H, Glucose 118 H, Calcium 7.9 L, Phosphorus 2.9, Albumin 2.1 L Micro: Microbiology 04/15/22 18:57 Blood Culture (Wb) - Left Forearm Bacteria Detection (PCR) - Final 04/15/22 18:57 Blood Culture (Wb) - Left Forearm Blood Culture - Preliminary Presumptive Micrococcus spp. 04/15/22 19:50 Blood Culture (Wb) - Left Wrist Blood Culture - Preliminary No growth in 48 hours. 04/17/22 10:00 Stool Enteric Bacteriology - Final Norovirus 04/15/22 20:15 Urine Catheter - Catheter Urine Culture - Final Enterobacter cloacae complex Physical Exam Narrative General: Alert and oriented x3, no apparent distress. HEENT: Normocephalic, atraumatic. Mucous membranes dry Cardiovascular: Normal S1, S2. No rubs, murmurs, or gallops. Lungs: Clear to auscultation bilaterally. Abdomen: Normal bowel sounds, soft, nontender Extremities: The patient has aneurysmal right lower arm AV fistula which has good thrill and bruit. No edema to extremities. Assessment & Plan Assessment/Plan (1) PRISCILLA (acute kidney injury): (2) Chronic kidney disease, stage 3b: (3) Kidney transplant recipient: (4) Immunosuppressed status: (5) Bladder dysfunction: (6) UTI (urinary tract infection): PLAN: Plan Nonoliguric hypovolemic Acute kidney injury on chronic kidney disease stage IIIb. The patient has a baseline chronic allograft dysfunction with serum creatinine of 2.00 mg/dL. Suspect PRISCILLA is secondary to prerenal azotemia from volume depletion and sepsis. Possible that prerenal PRISCILLA could also have progressed to ATN. Another possible cause of PRISCILLA would be less than over therapeutic level of tacrolimus, patient has been getting tacrolimus inconsistently at [facility]. Other possibility would be obstructive uropathy from atonic bladder although the patient has been performing CIC at [facility] prior to admission. Creatinine is better Status post donor kidney transplantation in 2019. The patient is immunosuppressed with tacrolimus and mycophenolate only. He is not on corticosteroid. tacrolimus trough level pending today Aim for tacrolimus level of between 5-10. Hypertension. The patient is currently off of antihypertensives, norvasc because of low BP on presentation. Complicated UTI. The patient is immunosuppressed in the setting of atonic bladder requiring CIC. Now has Ga catheter. urine cx enterobacter cloacae complex. Blood cx pending He is currently being treated with antibiotics as per primary was in the process of trying to see if we can arrange long-acting immunosuppressants but ran into logistical issues with limited transportation for him. continue IV fluids to bicarbonate today. Tested positive for norovirus and urine culture positive for enterobacter.
[2022-04-20] VITALS (8 sets, daily range): BP systolic 94–109; BP diastolic 58–66; PULSE 69–85; RESP 16–18; TEMP 36.1–36.7; O2SAT 96–100
[2022-04-20] MEDS: Heparin Injection (Vial) 5,000 UNIT/ML VIAL 5000 UNIT SC ×3 (05:40→22:05)
[2022-04-20 05:42] LABS: Absolute Lymphocyte Count 0.53 X10^3/uL (0.83-4.51); Absolute Neutrophil Count 1.8 X10^3/uL (2.0-7.7); Basophil# 0.02 X10^3/uL; Basophil% 0.7 % (0-1); Eosinophil# 0.19 X10^3/uL; Eosinophils% 6.4 % (0-5); Hematocrit 23.7 % (40-54); Lymphocyte # 0.53 X10^3/ul (0.83-4.51); Mean Corp Hgb Conc 33.8 g/dL (32-36); Mean Corpuscular Volume 91.9 fL (80-94); Monocyte# 0.39 X10^3/uL; Monocyte% 13.2 % (0-10); NRBC Flagged by Analyzer 0 % (0-5); POSITIVE DIFFERENTIAL YES; Platelet Count 159 K/mm3 (150-450); RBC Distribution Width CV 13.9 % (11.6-14.6); RBC Distribution Width SD 46.8 fl (35.1-43.9); Red Blood Count 2.58 M/mm3 (4.6-6.2)
[2022-04-20 06:16] LABS: Albumin, Serum 1.8 g/dL (3.2-5.0); BUN 66 mg/dL (7-18); BUN/Creat Ratio 21.5 RATIO (10-20); Calcium,Total 7.4 mg/dL (8.5-10.1); Chloride 122 mmol/L (98-107); Creatinine, Serum 3.07 mg/dL (0.70-1.30); EST Glomerular Filtration Rate 23 mL/min (>60); Est Glom Filt Rate - Afr Amer 27 mL/min (>60); Estimated Creatinine Clearance 23.19 ml/min; Glucose 100 mg/dL (74-106); Potassium 3.8 mmol/L (3.5-5.1); Sodium Level 147 mmol/L (136-145)
[2022-04-20 07:16] LABS: Differential Indicated SCAN CRITERIA MET
--- NOTE | 2022-04-20 08:08 | PN.RENAL_ITS ---
Documented by User: JASS Irving 04/20/22 08:16 Subjective Subjective Resting quietly in bed. No complaints. Objective Data Objective Data Vital Signs: Vital Signs Temp Pulse Resp BP Pulse Ox O2 Del Method 96.9 F L 74 16 94/66 99 Room Air 04/20/22 05:00 04/20/22 06:43 04/20/22 05:00 04/20/22 05:00 04/20/22 05:00 04/20/22 05:00 Oxygen Delivery Method Room Air Weight: 59.6 kg Body Mass Index (BMI) 16.8 Intake & Output: Intake and Output for Last 24 Hours 04/18/22 04/19/22 04/20/22 23:59 23:59 23:59 Intake Total 2595 / 2595 3896.67 / 3896.67 Output Total 1050 / 1750 2150 / 2550 700 / 700 Balance 1545 / 845 1746.67 / 1346.67 -700 / -700 Lab / Micro Data Result Diagrams: 04/20/22 05:29 04/20/22 05:29 Labs: Laboratory Results - last 24 hr 04/19/22 06:00: Diff Path Review August04/20/22 05:29: WBC 3.0 L, RBC 2.58 L, Hgb 8.0 L, Hct 23.7 L, MCV 91.9, MCH 31.0, MCHC 33.8, RDW Std Deviation 46.8 H, RDW Coeff of Anil 13.9, Plt Count 159, MPV 10.0, Immature Gran % (Auto) 0.700, Neut % (Auto) 61.0, Lymph % (Auto) 18.0 L, [place] % (Auto) 13.2 H, Eos % (Auto) 6.4 H, Baso % (Auto) 0.7, Absolute Neuts (auto) 1.8 L, Absolute Lymphs (auto) 0.53 L, Nucleated RBC % 0 04/20/22 05:29: Sodium 147 H, Potassium 3.8, Chloride 122 H, Carbon Dioxide 18.0 L, BUN 66 H, Creatinine 3.07 H, Estim Creat Clear Calc 23.19, Est GFR (MDRD) Af Amer 27 L, Est GFR (MDRD) Non-Af 23 L, BUN/Creatinine Ratio 21.5 H, Glucose 100, Calcium 7.4 L, Phosphorus 3.0, Albumin 1.8 L Micro: Microbiology 04/15/22 18:57 Blood Culture (Wb) - Left Forearm Bacteria Detection (PCR) - Final 04/15/22 18:57 Blood Culture (Wb) - Left Forearm Blood Culture - Preliminary Presumptive Micrococcus spp. 04/15/22 19:50 Blood Culture (Wb) - Left Wrist Blood Culture - Preliminary No growth in 48 hours. 04/17/22 10:00 Stool Enteric Bacteriology - Final Norovirus 04/15/22 20:15 Urine Catheter - Catheter Urine Culture - Final Enterobacter cloacae complex Physical Exam Narrative General: Alert and oriented x3, no apparent distress. HEENT: Normocephalic, atraumatic. Mucous membranes dry Cardiovascular: Normal S1, S2. No rubs, murmurs, or gallops. Lungs: Clear to auscultation bilaterally. No wheezes, rhonchi or rales noted Abdomen: Normal bowel sounds, soft, nontender Extremities: The patient has aneurysmal right lower arm AV fistula which has good thrill and bruit. No edema to extremities. Assessment & Plan Assessment/Plan (1) PRISCILLA (acute kidney injury): (2) Chronic kidney disease, stage 3b: (3) Kidney transplant recipient: (4) Immunosuppressed status: (5) Bladder dysfunction: (6) UTI (urinary tract infection): PLAN: Plan - Nonoliguric hypovolemic Acute kidney injury on chronic kidney disease stage IIIb. Baseline chronic allograft dysfunction with serum creatinine of 2.00 mg/dL. Suspect PRISCILLA is secondary to prerenal azotemia from volume depletion and sepsis. Possible that prerenal PRISCILLA could also have progressed to ATN. Another possible cause of PRISCILLA would be less than over therapeutic level of tacrolimus, patient has been getting tacrolimus inconsistently at [facility]. Other possibility would be obstructive uropathy from atonic bladder although the patient has been performing CIC at SNF prior to admission. Creatinine is better, creatinine peaked 4.58 mg/dL on admission (04/15) and today improved to 3.07 mg/dL. Urine output 2 L yesterday. No acute indication for INFORMATION TECHNOLOGY COORDINATOR. -Metabolic acidosis improving on bicarb drip -Status post donor kidney transplantation in 2019. The patient is immunosuppressed with tacrolimus and mycophenolate only. He is not on corticosteroid. tacrolimus trough level pending today, it was drawn 04/16. Last tacrolimus level on 03/03/2022 resulted at 22.0 Aim for tacrolimus level of between 5-10. was in the process of trying to see if we can arrange long-acting immunosuppressants but ran into logistical issues with limited transportation for him. - HTN: The patient is currently off of antihypertensives, norvasc because of low BP on presentation. - Complicated UTI. The patient is immunosuppressed in the setting of atonic bladder requiring CIC. urine cx enterobacter cloacae complex. Blood cx no growth to date. On IV antibiotics, Zosyn He is currently being treated with antibiotics as per primary - Tested positive for norovirus Documented by User: Dr. Lexis Bruno MD 04/20/22 15:17 Objective Data Lab / Micro Data Result Diagrams: 04/20/22 05:29 04/20/22 05:29 Assessment & Plan Assessment/Plan (1) PRISCILLA (acute kidney injury): (2) Chronic kidney disease, stage 3b: (3) Kidney transplant recipient: (4) Immunosuppressed status: (5) Bladder dysfunction: (6) UTI (urinary tract infection): PLAN: Plan - Nonoliguric hypovolemic Acute kidney injury on chronic kidney disease stage IIIb. Baseline chronic allograft dysfunction with serum creatinine of 2.00 mg/dL. Suspect PRISCILLA is secondary to prerenal azotemia from volume depletion and sepsis. Possible that prerenal PRISCILLA could also have progressed to ATN. Another possible cause of PRISCILLA would be less than over therapeutic level of tacrolimus, patient has been getting tacrolimus inconsistently at [facility]. Other possibility would be obstructive uropathy from atonic bladder although the patient has been performing CIC at [facility] prior to admission. Creatinine is better, creatinine peaked 4.58 mg/dL on admission (04/15) and today improved to 3.07 mg/dL. Urine output 2 L yesterday. No acute indication for INFORMATION TECHNOLOGY COORDINATOR. -Metabolic acidosis improving on bicarb drip -Status post donor kidney transplantation in 2019. The patient is immunosuppressed with tacrolimus and mycophenolate only. He is not on corticosteroid. tacrolimus trough level pending today, it was drawn 04/16. Last tacrolimus level on 03/03/2022 resulted at 22.0 Aim for tacrolimus level of between 5-10. was in the process of trying to see if we can arrange long-acting immunosuppressants but ran into logistical issues with limited transportation for him. - HTN: The patient is currently off of antihypertensives, norvasc because of low BP on presentation. - Complicated UTI. The patient is immunosuppressed in the setting of atonic bladder requiring CIC. urine cx enterobacter cloacae complex. Blood cx no growth to date. On IV antibiotics, Zosyn He is currently being treated with antibiotics as per primary - Tested positive for norovirus Addendum seen and examined independently. no new events. cr trending down. possible has some allograft injury at this point. mother unable to take him to main campus due toligistical issues. no further work up. michael Bell
--- NOTE | 2022-04-20 09:13 | CASEMGMT ---
Discharge Membership Counselor This insurance writer sent updates to [place] [facility]. Enma PAN Health And Safety Inspector
[2022-04-20] MEDS: Tacrolimus 0.5 MG Capsule PO ×2 (10:14→22:04)
[2022-04-20] MEDS: Mycophenolate Mofetil 250 MG Capsule 500 MG PO ×2 (10:14→22:04)
[2022-04-20] MEDS: Tacrolimus Anhydrous 1 MG Capsule PO ×2 (10:14→22:05)
[2022-04-20] MEDS: Menthol/Lanolin/Calamine/Znox 113 GM Tube 1 APPLIC TOPICAL ×2 (10:14→22:05)
[2022-04-20 14:07] LABS: Pathologist Review Reviewed
--- NOTE | 2022-04-20 14:24 | CON.PCM.ID_ITS ---
Assessment & Plan Assessment/Plan (1) Kidney transplant recipient: (2) PRISCILLA (acute kidney injury): (3) UTI (urinary tract infection): PLAN: Ucx with enterobacter. PRISCILLA improving. On cellcept/tacro, neph following. Also with norovirus, diarrhea resolved. Cont zosyn, dosed for GFR. Plan on po abx at discharge. Will follow, thank you HPI Consult Data Date of Consult: 04/20/22 HPI Narrative Reason for Consultation: uti HPI Narrative: ROOSEVELT GARCIA, is a 56 M with developmental delay, renal transplant, straight caths himself at [facility]. Presented 04/15 with several days confusion, lethargy, cloudy urine. Found to have PRISCILLA, admitted on ceftriaxone. Changed to zosyn based on ucx results. PRISCILLA improving, mental status better per his mother at bedside. No fever. ROS unobtainable due to mental status. [facility] Medical History Anemia Bronchitis CKD (chronic kidney disease), stage III Congenital nystagmus DVT (deep venous thrombosis) HTN (hypertension) Mild intellectual disability Neurogenic bladder disorder Pancytopenia Pulmonary embolism Urinary retention Vocal cord dysfunction Home Medications mycophenolate mofetil 500 mg tablet 500 mg PO 0900,2100 Anti-Rejection 07/14/16 [History Last Taken 02/13/22] amlodipine 5 mg tablet 5 mg PO QHS BLOOD PRESSURE 09/29/17 [History Last Taken 02/12/22] tacrolimus 1 mg capsule, immediate-release 1 mg PO 0900,2100 ANTI-REJECTION 01/11/18 [History Last Taken 02/13/22] multivitamin 1 tab PO QHS 02/13/22 [History Last Taken 02/12/22] tacrolimus 0.5 mg capsule, immediate-release 0.5 mg PO 0900,2100 anti rejection 02/13/22 [History Last Taken 02/13/22] Allergy/AdvReac Type Severity Reaction Status Date / Time anything red AdvReac Hives Uncoded 04/15/22 18:30 Family History Mother Hypertension Father Diabetes Surgical History Kidney transplant recipient Renal transplant, status post S/P arteriovenous (AV) fistula creation Social History Smoking Status: Never smoker second hand exposure: No alcohol intake: never substance use type: does not use caffeine: No Physical Exam Const no apparent distress General Appearance: cooperative and lethargic HEENT normocephalic and head/scalp atraumatic Eyes PERRL Neck supple and No nodes Resp normal air movement and clear to auscultation bilaterally Cardio regular rate and regular rhythm GI soft to palpation, non-tender and non-distended Extremity General Extremity: Negative for edema Skin no rashes or lesions noted Neuro CN's II-XII intact bilaterally Lab / Micro Data Attestation: I reviewed the patient's lab results. Result Diagrams: 04/20/22 05:29 04/20/22 05:29 Labs: Laboratory Results - last 24 hr 04/19/22 06:00: Diff Path Review Reviewed 04/20/22 05:29: WBC 3.0 L, RBC 2.58 L, Hgb 8.0 L, Hct 23.7 L, MCV 91.9, MCH 31.0, MCHC 33.8, RDW Std Deviation 46.8 H, RDW Coeff of Anil 13.9, Plt Count 159, MPV 10.0, Immature Gran % (Auto) 0.700, Neut % (Auto) 61.0, Lymph % (Auto) 18.0 L, [place] % (Auto) 13.2 H, Eos % (Auto) 6.4 H, Baso % (Auto) 0.7, Absolute Neuts (auto) 1.8 L, Absolute Lymphs (auto) 0.53 L, Nucleated RBC % 0, Differential Comment COMMENT, Diff Path Review August04/20/22 05:29: Sodium 147 H, Potassium 3.8, Chloride 122 H, Carbon Dioxide 18.0 L, BUN 66 H, Creatinine 3.07 H, Estim Creat Clear Calc 23.19, Est GFR (MDRD) Af Amer 27 L, Est GFR (MDRD) Non-Af 23 L, BUN/Creatinine Ratio 21.5 H, Glucose 100, Calcium 7.4 L, Phosphorus 3.0, Albumin 1.8 L Micro: Microbiology 04/15/22 18:57 Blood Culture (Wb) - Left Forearm Bacteria Detection (PCR) - Final 04/15/22 18:57 Blood Culture (Wb) - Left Forearm Blood Culture - Preliminary Presumptive Micrococcus spp.
--- NOTE | 2022-04-20 17:54 | PCM.PN.HOSP ---
Subjective Subjective Oral intake has improved. No ongoing diarrhea nausea or vomiting. Kidney function is improving and per discussion with nephrology okay for discharge. Currently pre-CERT is pending for placement at [facility]. Previously patient was at assisted living. Objective Data Objective Data Vital Signs: Vital Signs Temp Pulse Resp BP Pulse Ox O2 Del Method 98.0 F 80 18 98/58 L 96 Room Air 04/20/22 15:18 04/20/22 15:18 04/20/22 15:18 04/20/22 15:18 04/20/22 15:18 04/20/22 15:18 Oxygen Delivery Method Room Air Weight: 59.6 kg Body Mass Index (BMI) 16.8 Intake & Output: Intake and Output for Last 24 Hours 04/18/22 04/19/22 04/20/22 23:59 23:59 23:59 Intake Total 2595 / 2595 3896.67 / 3896.67 1700 / 1700 Output Total 1050 / 1750 2150 / 2550 1150 / 1150 Balance 1545 / 845 1746.67 / 1346.67 550 / 550 Lab / Micro Data Result Diagrams: 04/20/22 05:29 04/20/22 05:29 Labs: Laboratory Results - last 24 hr 04/19/22 06:00: Diff Path Review Reviewed 04/20/22 05:29: WBC 3.0 L, RBC 2.58 L, Hgb 8.0 L, Hct 23.7 L, MCV 91.9, MCH 31.0, MCHC 33.8, RDW Std Deviation 46.8 H, RDW Coeff of Anil 13.9, Plt Count 159, MPV 10.0, Immature Gran % (Auto) 0.700, Neut % (Auto) 61.0, Lymph % (Auto) 18.0 L, King % (Auto) 13.2 H, Eos % (Auto) 6.4 H, Baso % (Auto) 0.7, Absolute Neuts (auto) 1.8 L, Absolute Lymphs (auto) 0.53 L, Nucleated RBC % 0, Differential Comment COMMENT, Diff Path Review August04/20/22 05:29: Sodium 147 H, Potassium 3.8, Chloride 122 H, Carbon Dioxide 18.0 L, BUN 66 H, Creatinine 3.07 H, Estim Creat Clear Calc 23.19, Est GFR (MDRD) Af Amer 27 L, Est GFR (MDRD) Non-Af 23 L, BUN/Creatinine Ratio 21.5 H, Glucose 100, Calcium 7.4 L, Phosphorus 3.0, Albumin 1.8 L Micro: Microbiology 04/15/22 18:57 Blood Culture (Wb) - Left Forearm Bacteria Detection (PCR) - Final 04/15/22 18:57 Blood Culture (Wb) - Left Forearm Blood Culture - Preliminary Presumptive Micrococcus spp. 04/15/22 19:50 Blood Culture (Wb) - Left Wrist Blood Culture - Preliminary No growth in 48 hours. 04/17/22 10:00 Stool Enteric Bacteriology - Final Norovirus 04/15/22 20:15 Urine Catheter - Catheter Urine Culture - Final Enterobacter cloacae complex Physical Exam Const alert and no apparent distress Constitutional Narrative: Thin, middle-aged white male, sitting up in bed, nursing at bedside, patient appears older than stated age, extremely hard of hearing HEENT head/scalp atraumatic, moist oral mucous membranes and oropharynx normal HEENT Narrative: Mallampati 2, no thrush Head and Scalp: normocephalic Resp normal respiratory effort, no retractions, no use of accessory muscles and clear to auscultation bilaterally Auscultation: Negative for crackles, rhonchi or wheezes Cardio regular rate, regular rhythm, S1 normal heart sound, S2 normal heart sound, no murmurs, no rub, no gallops and no clicks GI normal to inspection, nondistended, normoactive bowel sounds, soft to palpation and non-tender Extremity no clubbing, cyanosis or edema Extremity Narrative: 2+ pedal pulses Neuro moves all extremities and no focal motor deficits Neuro Narrative: Patient extremely hard of hearing Speech: speech normal Psych Psych Narrative: Affect is somewhat flat however eye contact is good Assessment & Plan Assessment/Plan (1) UTI (urinary tract infection): (2) PRISCILLA (acute kidney injury): (3) Chronic kidney disease, stage 3b: (4) Norovirus: (5) Diarrhea: PLAN: Plan Acute diarrhea secondary to norovirus infection -Improving -Diarrhea is there with only 1 bowel movement yesterday and none documented yet today -Oral intake is significantly improved -Continue IV fluid fluids with sodium bicarb per nephrology Enterobacter UTI -Continue Zosyn -ID consult placed today with recommendations for discharge on p.o. antibiotics PRISCILLA on CKD stage IIIb -Previous kidney transplant with chronic allograft dysfunction -Baseline serum creatinine is 2 -Current serum creatinine down to 3 -Patient remains on sodium bicarb drip with improving acidosis -Continue immunosuppression per nephrology recommendations -Sodium is trending up -We will repeat in a.m. likely related to bicarb drip -Repeat BMP in a.m. -Per discussion with nephrology okay for discharge once placement can be secured and will have outpatient follow-up in 1 week Non-anion gap metabolic acidosis -Related PRISCILLA -Bicarb improving -Continue bicarb drip per nephrology -We will discontinue at discharge -We will discuss oral bicarb with nephrology prior to discharge History of atonic bladder -Self caths regularly -Likely etiology for urinary tract infection Chronic anemia -Hemoglobin is overall stable -Continue to monitor Hypertension -Hold amlodipine as blood pressures have somewhat been labile -Continue to monitor -May hold at discharge depending on blood pressure trend DVT prophylaxis -Heparin 5000 units 3 times daily CODE STATUS -Full code Charges/Coding Visit Charges Inpatient E&M: 90978 Subs Hosp L2
--- NOTE | 2022-04-20 19:00 | PCA ---
emergency documentation
--- NOTE | 2022-04-20 19:00 | NURSING ---
emergency documentation in effect
[2022-04-20] MEDS: Acetaminophen 325 MG Tablet 650 MG PO (22:04)
[2022-04-21] VITALS (7 sets, daily range): BP systolic 96–114; BP diastolic 42–63; PULSE 71–78; RESP 16; TEMP 36.2–36.6; O2SAT 96–98
[2022-04-21] MEDS: Heparin Injection (Vial) 5,000 UNIT/ML VIAL 5000 UNIT SC (05:38)
--- NOTE | 2022-04-21 07:57 | CASEMGMT ---
SW received notification via [employer] that patient was approved to go back to [facility]. SW will notify physician. Plan: d/c to [facility] under skilled level of care. Anna KING
[2022-04-21 08:14] LABS: Absolute Lymphocyte Count 0.59 X10^3/uL (0.83-4.51); Absolute Neutrophil Count 2.3 X10^3/uL (2.0-7.7); Basophil# 0.03 X10^3/uL; Basophil% 0.8 % (0-1); Eosinophil# 0.22 X10^3/uL; Eosinophils% 6.2 % (0-5); Hematocrit 23.7 % (40-54); Hemoglobin 7.8 g/dL (13.0-16.5); Lymphocyte # 0.59 X10^3/ul (0.83-4.51); Lymphocyte % 16.7 % (19-41); Mean Corp Hgb Conc 32.9 g/dL (32-36); Mean Platelet Vol. 10.7 fl (6.2-12.0); Monocyte# 0.38 X10^3/uL; Monocyte% 10.7 % (0-10); NRBC Flagged by Analyzer 0 % (0-5); POSITIVE DIFFERENTIAL YES; Platelet Count 164 K/mm3 (150-450); RBC Distribution Width SD 47.2 fl (35.1-43.9); Red Blood Count 2.52 M/mm3 (4.6-6.2); White Blood Count 3.5 K/mm3 (4.4-11.0)
[2022-04-21 08:51] LABS: Albumin, Serum 1.8 g/dL (3.2-5.0); Anion Gap 11 (5-15); BUN 63 mg/dL (7-18); BUN/Creat Ratio 21.3 RATIO (10-20); Calcium,Total 7.3 mg/dL (8.5-10.1); Chloride 114 mmol/L (98-107); Creatinine, Serum 2.96 mg/dL (0.70-1.30); EST Glomerular Filtration Rate 24 mL/min (>60); Est Glom Filt Rate - Afr Amer 29 mL/min (>60); Estimated Creatinine Clearance 24.05 ml/min; Glucose 94 mg/dL (74-106); Magnesium 1.6 mg/dL (1.6-2.6); Phosphorus 3.8 mg/dL (2.5-4.9); Potassium 4.1 mmol/L (3.5-5.1); Sodium Level 144 mmol/L (136-145)
[2022-04-21 09:00] LABS: Differential Indicated SCAN CRITERIA MET
[2022-04-21] MEDS: Tacrolimus Anhydrous 1 MG Capsule PO (09:26)
[2022-04-21] MEDS: Mycophenolate Mofetil 250 MG Capsule 500 MG PO (09:26)
[2022-04-21] MEDS: Tacrolimus 0.5 MG Capsule PO (09:26)
[2022-04-21] MEDS: Menthol/Lanolin/Calamine/Znox 113 GM Tube 1 APPLIC TOPICAL (09:27)
[2022-04-21] MEDS: Acetaminophen 325 MG Tablet 650 MG PO (09:27)
--- NOTE | 2022-04-21 10:56 | PCM.PN.ID ---
Physical Exam Narrative Feeling better, no fever Const alert and no apparent distress General Appearance: cooperative Resp normal air movement and clear to auscultation bilaterally Cardio regular rate and regular rhythm GI soft to palpation, non-tender and non-distended Extremity General Extremity: Negative for edema Skin no rashes or lesions noted ID ID: Route of nutrition/ use of supplements: [] Nutritional Intake: [] IV Site: [] Ga Catheter: [] Assessment & Plan Assessment/Plan (1) Kidney transplant recipient: (2) PRISCILLA (acute kidney injury): (3) UTI (urinary tract infection): PLAN: Ucx with enterobacter. PRISCILLA improving. On cellcept/tacro, neph following. Also with norovirus, diarrhea resolved. Cont zosyn, dosed for GFR. Ok for discharge off of abx when he does go. Will follow
--- NOTE | 2022-04-21 12:02 | DS.PCM_ITS ---
Providers Date of Admission: 04/15/22 Date of Discharge: 04/21/22 Primary Care Physician: Dr. Mike Bella MD Consultations 04/15/22 22:10 Consult: Nephrology Routine Consulting Provider: Lexis Bruno Reason for Consult: PRISCILLA on CKD w/ hx of kidney transplant 2016 EMERGENT Consult: No Notified: Yes Date Notified: 04/16/22 Time Notified: 06:52 Method of Notification: Answering Service 04/20/22 08:11 Consult: Infectious Disease Routine Consulting Provider: Cheng Santos Reason for Consult: complicated UTI s/p transplant EMERGENT Consult: No Notified: Yes Date Notified: 04/20/22 Time Notified: 08:11 Method of Notification: Text Reason For Visit: PRISCILLA ON CKD / UTI Diagnosis Discharge Diagnosis (1) Kidney transplant recipient: Status: Acute Code(s): Z94.0 - Kidney transplant status (2) PRISCILLA (acute kidney injury): Status: Acute Code(s): N17.9 - Acute kidney failure, unspecified (3) UTI (urinary tract infection): Status: Acute Code(s): N39.0 - Urinary tract infection, site not specified Medications at Discharge Home Medications mycophenolate mofetil 500 mg tablet 500 mg PO 0900,2099 Anti-Rejection 07/14/16 amlodipine 5 mg tablet 5 mg PO QHS BLOOD PRESSURE 09/29/17 tacrolimus 1 mg capsule, immediate-release 1 mg PO 0900,2099 ANTI-REJECTION 01/11/18 multivitamin 1 tab PO QHS 02/13/22 tacrolimus 0.5 mg capsule, immediate-release 0.5 mg PO 0900,2099 anti rejection 02/13/22 acetaminophen 325 mg tablet (Tylenol) 650 mg PO Q6H PRN PRN Pain 1-10 Or Fever>100.7 #0 tabs 04/21/22 sodium bicarbonate 650 mg tablet 1,300 mg PO TID #6 tabs 04/21/22 Hospital Course Operations None Procedures None Summary of Care Provided Minutes Spent on Discharge: 37 Hospital Course: Mr. Pinzon is a 56-year-old white male who presented to the emergency department on 04/15/2022 with poor oral intake and increasing lethargy. He had known history of a renal transplant and is immunosuppressed at baseline. He is currently residing at [facility] living at the [address] and up evidently was e xperiencing cloudy urine and increasing lethargy. This patient self caths at baseline. In the emergency department he was found to have a UA that was suggestive of urinary tract infection and worsening renal function with a creatinine of 4.58. His baseline is 2. He was given IV antibiotics with Rocephin and started on IV fluids and request for admission was made. He has intellectual disability with congenital nystagmus at baseline and his mother helps take care of him and helps provide some of the history. She reported that over the last several days prior to presentation he had been more tired with decreasing oral intake but no known fevers. She also reported he was having significant diarrhea and some nausea. Vital signs on presentation demonstrated temperature of 96.8, heart rate 94, respiratory rate 20, blood pressure was 91/55 and pulse ox was 100% on room air. He was admitted to the medical floor and nephrology was consulted. It was suspected that he was experiencing wo rsening renal function related to prerenal acidemia and volume depletion. A tacrolimus level was ordered and he was started on a sodium bicarb drip for non- anion gap metabolic acidosis. His serum creatinine slowly trended back down to 2.96 on the day of discharge. Urine culture was obtained and his urine grew out Enterobacter. ID was consulted with his history and at the time of discharge felt that he had enough antibiotics and needed no further oral antibiotics at the time of discharge. With the diarrhea and the nausea a stool sample was obtained and he was found to have norovirus. Supportive care was provided for this along with hydration as noted above. Slowly his oral intake improved and was back to baseline per discussion with his mother prior to discharge. We did discontinue his Ga that was placed on admission prior to discharge and he is going to continue to self cath. I have written recommendations to be performed at the [facility] for the patient to self cath into a container where the volume of his urine can be measured at the recommendation of his mother. She states that typically when he starts having urinary tract infection his urine volume decreases. At the time of discharge nephrology recommended we discharge him on sodium bicarb 1300 mg p.o. 3 times daily increasing from 650 mg p.o. twice daily. He will follow-up with nephrology within the next 2 to 4 weeks per discussion with Dr. Bruno as an outpatient and this will be arranged by him. He was evaluated by therapy services during his hospital course and they did recommend some ongoing physical therapy and Occupational Therapy prior to transition back to his assisted living environment. Therefore, he was discharged to the [facility] on 04/21/2022 at that time pre-CERT was obtained from the insurance company. He was discharged there in stable condition. Discharge diagnoses: Acute diarrhea and nausea secondary to norovirus infection-resolved Enterobacter UTI-treatment completed PRISCILLA on CKD stage IIIb-resolving Non-anion gap metabolic acidosis History of atonic bladder Chronic anemia Hypertension Intellectual disability Congenital nystagmus Physical Exam Const alert and no apparent distress Constitutional Narrative: Thin, middle-aged white male, sitting up in a chair at the bedside, mother is at the bedside, patient appears older than stated age, extremely hard of hearing General Appearance: cooperative, comfortable, well kempt and uncooperative Orientation / Consciousness: awake Exam Limitations: other limitations Nutritional Appearance: thin HEENT normocephalic, head/scalp atraumatic, moist oral mucous membranes and oropharynx normal HEENT Narrative: Marked hearing loss, Mallampati 2, no thrush Eyes PERRL, EOMs intact bilaterally and conjunctivae normal Eyes Narrative: nystagmus, which is chronic Neck no lymphadenopathy and supple Neck Narrative: Trachea midline, no thyroid enlargement Resp normal respiratory effort, no retractions, no use of accessory muscles and clear to auscultation bilaterally Auscultation: Negative for crackles, rhonchi or wheezes Cardio regular rate, regular rhythm, S1 normal heart sound, S2 normal heart sound, no murmurs, no rub, no gallops and no clicks GI normal to inspection, nondistended, normoactive bowel sounds and soft to palpation GI Narrative: Mildly tender to palpation diffusely-no point tenderness Extremity no clubbing, cyanosis or edema Extremity Narrative: 2+ pedal pulses Skin no wounds, skin turgor normal and no jaundice Skin Narrative: Skin is pale no Neuro CN's II-XII intact bilaterally, moves all extremities and no focal motor deficits Neuro Narrative: Patient extremely hard of hearing, generalized weakness noted-proximal greater than distal Sensorium / Orientation: awake and alert Speech: speech normal Psych Psych Narrative: Affect is somewhat flat however eye contact is good Weight / BMI Weight Weight: 59.6 kg Body Mass Index (BMI) 16.8 ABG / Lab / Microbiology Data Result Diagrams: 04/21/22 07:19 04/21/22 07:19 Laboratory: Laboratory Results - last 24 hr 04/19/22 06:00: Diff Path Review Reviewed 04/21/22 07:19: WBC 3.5 L, RBC 2.52 L, Hgb 7.8 L, Hct 23.7 L, MCV 94.0, MCH 31.0, MCHC 32.9, RDW Std Deviation 47.2 H, RDW Coeff of Anil 14.0, Plt Count 164, MPV 10.7, Immature Gran % (Auto) 0.600, Neut % (Auto) 65.0, Lymph % (Auto) 16.7 L, [place] % (Auto) 10.7 H, Eos % (Auto) 6.2 H, Baso % (Auto) 0.8, Absolute Neuts (auto) 2.3, Absolute Lymphs (auto) 0.59 L, Nucleated RBC % 0, Diff Path Review May 04/21/22 07:19: Sodium 144, Potassium 4.1, Chloride 114 H, Carbon Dioxide 19.0 L , Anion Gap 11, BUN 63 H, Creatinine 2.96 H, Estim Creat Clear Calc 24.05, Est GFR (MDRD) Af Amer 29 L, Est GFR (MDRD) Non-Af 24 L, BUN/Creatinine Ratio 21.3 H , Glucose 94, Calcium 7.3 L, Phosphorus 3.8, Magnesium 1.6, Albumin 1.8 L Microbiology: Microbiology 04/15/22 19:50 Blood Culture (Wb) - Left Wrist Blood Culture - Final No growth in 5 days. 04/15/22 18:57 Blood Culture (Wb) - Left Forearm Bacteria Detection (PCR) - Final 04/15/22 18:57 Blood Culture (Wb) - Left Forearm Blood Culture - Final Presumptive Micrococcus spp. 04/17/22 10:00 Stool Enteric Bacteriology - Final Norovirus 04/15/22 20:15 Urine Catheter - Catheter Urine Culture - Final Enterobacter cloacae complex D/C Instructions Discharge Diet: Renal Diet Discharge Activity: Return to Normal Activity Meaningful Use Info Meaningful Use Diagnoses (Choose all that apply): None applicable Discharge Plan Admission Admit Date/Time: 04/15/22 21:40 Primary Reason for Your Visit: lethargy/poor po intake Attending Provider: Stella Bell Primary Care Provider: Mike Bella Consulting Providers: Lexis Bruno ; Linda Mercer ; Sarah Reyes ; Cheng Santos Instructions Additional Instructions / Restrictions: Please have patient straight cath 4-6 times daily into a container and measure volume of excreted urine and record Discharge Orders/Prescriptions Prescriptions: New acetaminophen [Tylenol] 325 mg Tablet 650 mg PO Q6H PRN PRN (Reason: Pain 1-10 Or Fever>100.7) Qty: 0 0RF sodium bicarbonate 650 mg tablet 1,300 mg PO TID Qty: 6 0RF Continued mycophenolate mofetil 500 MG tablet 500 mg PO 899,2099 Label Comments: anti rejection tacrolimus 1 MG capsule 1 mg PO 899,2099 Label Comments: TAKE TWO CAPSULES BY MOUTH TWICE DAILY multivitamin Tablet 1 tab PO QHS tacrolimus 0.5 mg capsule 0.5 mg PO 899,2099 Label Comments: take 1 capsule by mouth twice a day Held amlodipine 5 MG tablet 5 mg PO QHS Hold Instructions: Until seen again by nephrology Referrals / Follow Up: Lexis Bruno MD [Med Staff - Consulting] - Within 2 Weeks Mike Bella MD [Primary Care Provider] - In 1 Week Disposition Disposition (needs filled in before D/C Order can be placed): Group Home Facility Charges/Coding Visit Charges Inpatient E&M: 93001 SNF Disch >30 Min
--- NOTE | 2022-04-21 12:23 | TREXTCAR_ITS ---
Diet Diet Order/Speech Therapy: 04/15/22 22:10 Diet: Renal - General Food consistency:: Regular Liquid Consistency:: Regular/Thin Diet Comments: 2 cartons milk w/ meals. Pref: yogurt, mac & cheese, stir morris, beef & noodl Routine Orders/Code Status Routine Lab Work: CBC (1 week) and BMP (3 days) Code Status: Full Code Therapies Physical Therapy: Eval and Treat Occupational Therapy: Eval and Treat Problem/Diagnosis (1) Kidney transplant recipient: Status: Acute Code(s): Z94.0 - Kidney transplant status (2) PRISCILLA (acute kidney injury): Status: Acute Code(s): N17.9 - Acute kidney failure, unspecified (3) UTI (urinary tract infection): Status: Acute Code(s): N39.0 - Urinary tract infection, site not specified Allergies/Procedures Done in Hospital Allergies anything red Adverse Reaction (Uncoded 04/15/22 18:30) Hives Procedures: None Type of Care/Length of Stay Estimated LOS: Convalescent Care Less Than 30 days Type of Care Needed: Skilled Rehab Potential: Good Prognosis: Good Additional Orders/Day of Discharge Day of Discharge: 04/21/22 Dietary and Speech Recommendations Dietitian Recommendations/Changes: Continue Renal -General diet to manage medical conditions. RD will assess need for ONS at follow-up depending on renal labs. Discharge Plan Admission Admit Date/Time: 04/15/22 21:40 Primary Reason for Your Visit: lethargy/poor po intake Attending Provider: Stella Bell Primary Care Provider: Mike Bella Consulting Providers: Lexis Bruno ; Linda Mercer ; Sarah Reyes ; Cheng Gutierrez Instructions Additional Instructions / Restrictions: Please have patient straight cath 4-6 times daily into a container and measure volume of excreted urine and record Discharge Orders/Prescriptions Prescriptions: New acetaminophen [Tylenol] 325 mg Tablet 650 mg PO Q6H PRN PRN (Reason: Pain 1-10 Or Fever>100.7) Qty: 0 0RF sodium bicarbonate 650 mg tablet 1,300 mg PO TID Qty: 6 0RF Continued mycophenolate mofetil 500 MG tablet 500 mg PO 0900,2100 Label Comments: anti rejection tacrolimus 1 MG capsule 1 mg PO 0900,2100 Label Comments: TAKE TWO CAPSULES BY MOUTH TWICE DAILY multivitamin Tablet 1 tab PO QHS tacrolimus 0.5 mg capsule 0.5 mg PO 0900,2100 Label Comments: take 1 capsule by mouth twice a day Held amlodipine 5 MG tablet 5 mg PO QHS Hold Instructions: Until seen again by nephrology Referrals / Follow Up: Lexis Bruno MD [Med Staff - Consulting] - Within 2 Weeks Mike Bella MD [Primary Care Provider] - In 1 Week Disposition Disposition (needs filled in before D/C Order can be placed): [facility] Facility
--- NOTE | 2022-04-21 12:40 | PCM.PN.REN ---
Documented by User: JASS Irving 04/21/22 12:44 Subjective Subjective Resting in bed, no overnight events. Objective Data Objective Data Vital Signs: Vital Signs Temp Pulse Resp BP Pulse Ox O2 Del Method 97.8 F 78 16 108/63 98 Room Air 04/21/22 10:26 04/21/22 10:26 04/21/22 10:26 04/21/22 10:26 04/21/22 10:04/21/22 10:26 Oxygen Delivery Method Room Air Weight: 59.6 kg Body Mass Index (BMI) 16.8 Intake & Output: Intake and Output for Last 24 Hours 04/19/22 04/20/22 04/21/22 23:59 23:59 23:59 Intake Total 3896.67 / 3896.67 1750 / 1750 1200 / 1200 Output Total 2150 / 2550 1650 / 1650 300 / 300 Balance 1746.67 / 1346.67 100 / 100 900 / 900 Lab / Micro Data Result Diagrams: 04/21/22 07:19 04/21/22 07:19 Labs: Laboratory Results - last 24 hr 04/19/22 06:00: Diff Path Review Reviewed 04/21/22 07:19: WBC 3.5 L, RBC 2.52 L, Hgb 7.8 L, Hct 23.7 L, MCV 94.0, MCH 31.0, MCHC 32.9, RDW Std Deviation 47.2 H, RDW Coeff of Anil 14.0, Plt Count 164, MPV 10.7, Immature Gran % (Auto) 0.600, Neut % (Auto) 65.0, Lymph % (Auto) 16.7 L, [place] % (Auto) 10.7 H, Eos % (Auto) 6.2 H, Baso % (Auto) 0.8, Absolute Neuts (auto) 2.3, Absolute Lymphs (auto) 0.59 L, Nucleated RBC % 0, Diff Path Review May 04/21/22 07:19: Sodium 144, Potassium 4.1, Chloride 114 H, Carbon Dioxide 19.0 L, Anion Gap 11, BUN 63 H, Creatinine 2.96 H, Estim Creat Clear Calc 24.05, Est GFR (MDRD) Af Amer 29 L, Est GFR (MDRD) Non-Af 24 L, BUN/Creatinine Ratio 21.3 H, Glucose 94, Calcium 7.3 L, Phosphorus 3.8, Magnesium 1.6, Albumin 1.8 L Micro: Microbiology 04/15/22 19:50 Blood Culture (Wb) - Left Wrist Blood Culture - Final No growth in 5 days. 04/15/22 18:57 Blood Culture (Wb) - Left Forearm Bacteria Detection (PCR) - Final 04/15/22 18:57 Blood Culture (Wb) - Left Forearm Blood Culture - Final Presumptive Micrococcus spp. 04/17/22 10:00 Stool Enteric Bacteriology - Final Norovirus 04/15/22 20:15 Urine Catheter - Catheter Urine Culture - Final Enterobacter cloacae complex Physical Exam Narrative General: Alert and oriented x3, no apparent distress. HEENT: Normocephalic, atraumatic. Mucous membranes dry Cardiovascular: Normal S1, S2. No rubs, murmurs, or gallops. Lungs: Clear to auscultation bilaterally. No wheezes, rhonchi or rales noted Abdomen: Normal bowel sounds, soft, nontender Extremities: The patient has aneurysmal right lower arm AV fistula which has good thrill and bruit. No edema to extremities. Assessment & Plan Assessment/Plan (1) PRISCILLA (acute kidney injury): (2) Chronic kidney disease, stage 3b: (3) Kidney transplant recipient: (4) Immunosuppressed status: (5) Bladder dysfunction: (6) UTI (urinary tract infection): PLAN: Plan - Nonoliguric hypovolemic Acute kidney injury on chronic kidney disease stage IIIb. Baseline chronic allograft dysfunction with serum creatinine of 2.00 mg/dL. Suspect PRISCILLA is secondary to prerenal azotemia from volume depletion and sepsis. Possible that prerenal PRISCILLA could also have progressed to ATN. Another possible cause of PRISCILLA would be less than over therapeutic level of tacrolimus, patient has been getting tacrolimus inconsistently at [facility]. Other possibility would be obstructive uropathy from atonic bladder although the patient has been performing CIC at SNF prior to admission. Creatinine is better, creatinine peaked 4.58 mg/dL on admission (04/15) and today improved to 2.96 mg/dL. Urine output ~2 L. 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 -Metabolic acidosis improving on bicarb drip. Bicarb 19 today. -Status post donor kidney transplantation in 2019. The patient is immunosuppressed with tacrolimus and mycophenolate only. He is not on corticosteroid. tacrolimus trough level pending today, it was drawn 04/16. Last tacrolimus level on 03/03/2022 resulted at 22.0 Aim for tacrolimus level of between 5-10. was in the process of trying to see if we can arrange long-acting immunosuppressants but ran into logistical issues with limited transportation for him. - HTN: The patient is currently off of antihypertensives, norvasc because of low BP on presentation. - Complicated UTI. The patient is immunosuppressed in the setting of atonic bladder requiring CIC. urine cx enterobacter cloacae complex. Blood cx no growth to date. On IV antibiotics, Zosyn He is currently being treated with antibiotics as per primary - Tested positive for norovirus -Discharge planning in process. To be discharged today to [facility], [facility]. We will arrange for hospital follow-up. Documented by User: Dr. Lexis Bruno MD 04/21/22 18:32 Objective Data Lab / Micro Data Result Diagrams: 04/21/22 07:19 04/21/22 07:19 Assessment & Plan Assessment/Plan (1) PRISCILLA (acute kidney injury): (2) Chronic kidney disease, stage 3b: (3) Kidney transplant recipient: (4) Immunosuppressed status: (5) Bladder dysfunction: (6) UTI (urinary tract infection): PLAN: Plan - Nonoliguric hypovolemic Acute kidney injury on chronic kidney disease stage IIIb. Baseline chronic allograft dysfunction with serum creatinine of 2.00 mg/dL. Suspect PRISCILLA is secondary to prerenal azotemia from volume depletion and sepsis. Possible that prerenal PRISCILLA could also have progressed to ATN. Another possible cause of PRISCILLA would be less than over therapeutic level of tacrolimus, patient has been getting tacrolimus inconsistently at [facility]. Other possibility would be obstructive uropathy from atonic bladder although the patient has been performing CIC at SNF prior to admission. Creatinine is better, creatinine peaked 4.58 mg/dL on admission (04/15) and today improved to 2.96 mg/dL. Urine output ~2 L. 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 -Metabolic acidosis improving on bicarb drip. Bicarb 19 today. -Status post donor kidney transplantation in 2019. The patient is immunosuppressed with tacrolimus and mycophenolate only. He is not on corticosteroid. tacrolimus trough level pending today, it was drawn 04/16. Last tacrolimus level on 03/03/2022 resulted at 22.0 Aim for tacrolimus level of between 5-10. was in the process of trying to see if we can arrange long-acting immunosuppressants but ran into logistical issues with limited transportation for him. - HTN: The patient is currently off of antihypertensives, norvasc because of low BP on presentation. - Complicated UTI. The patient is immunosuppressed in the setting of atonic bladder requiring CIC. urine cx enterobacter cloacae complex. Blood cx no growth to date. On IV antibiotics, Zosyn He is currently being treated with antibiotics as per primary - Tested positive for norovirus -Discharge planning in process. To be discharged today to [facility]. We will arrange for hospital follow-up. Addendum agree with above. michael hospitalist. Continue bicarb at ri
[2022-04-21 13:38] LABS: Pathologist Review Reviewed
--- NOTE | 2022-04-21 13:40 | CASEMGMT ---
Discharge Inbound Sales Consultant This telegraphic typewriter mechanic sent d[facility]c orders [facility] will be transporting patient with a pick and shovel man time of 2:30pm nursing staff made aware. Enma PAN Books Binder
[2022-04-21 13:49] LABS: Pathologist Review Reviewed
--- NOTE | 2022-04-21 14:51 | NURSING ---
Report called to ROD Connor at [facility] at 1445.
--- NOTE | 2022-04-21 15:56 | CASEMGMT ---
Patient is ready for discharge to [facility] [place] [facility] today. STUART completed a 7000 in [facility]. Breanna d/c program manager environmental planning arranged patient's discharge. Plan: d/c to [facility] [place] [facility] under skilled level of care. [facility] will transport patient via cot. Anna KING
--- NOTE | 2022-04-21 19:00 | NURSING ---
Retail Store Manager left in room found by EVS, this RN called to notify that it was left and per pts mother she will be in tomorrow to lemon picker.
[2022-04-22 14:38] LABS: Tacrolimus (FK506) 28.6 ng/mL (2.0-20.0)
== END 2022-04-21 14:38 | disposition skilled nursing facility (03) | DRG 683 ==
LOC: ED 21:05 → PCU 21:45
PROVIDERS: Internal Medicine Nephrology; Nurse Practitioner Adult Health; Student in an Organized Health Care Education/Training Program; Admitting Provider Internal Medicine; Emergency Provider Emergency Medicine; PCP Family Medicine; Visit Provider Internal Medicine
DX: N17.9 Acute kidney failure, unspecified (principal); I13.0 Hypertensive heart and chronic kidney disease with heart failure and stage 1 through stage 4 chronic kidney disease, or unspecified chronic kidney disease; A08.11 Acute gastroenteropathy due to Norwalk agent; E87.20 Acidosis, unspecified; Z94.0 Kidney transplant status; I95.9 Hypotension, unspecified; N18.32 Chronic kidney disease, stage 3b; H55.01 Congenital nystagmus; E86.9 Volume depletion, unspecified; D64.9 Anemia, unspecified; F79 Unspecified intellectual disabilities; B95.2 Enterococcus as the cause of diseases classified elsewhere
CPT/HCPCS: 36415; 71045; 74018; 76770; 80048; 80053; 80069; 80076; 80197; 81001; 82436; 82570; 83605; 83735; 83935; 84133; 84156; 84300; 85025; 87040; 87077; 87086; 87088; 87149; 87186; 87426; 87506; 93005; 97110; 97162; 97166; 97530; 97535; 99285; J7030; J7050; J7120; A4216

== ENCOUNTER 2022-04-24 12:48 | Inpatient (IN) | payer MEDICARE, SELFPAY ==
[2022-04-24] VITALS (8 sets, daily range): BP systolic 105–121; BP diastolic 61–73; PULSE 78–85; RESP 13–21; TEMP 35.9–37.2; O2SAT 97–100; BMI 23.0; BMI 17.9
--- NOTE | 2022-04-24 12:52 | RAD_ITS ---
STUDY: X-RAY CHEST REASON FOR EXAM: Male, 56 years old. Bilateral rhonchi TECHNIQUE: PA and lateral views of the chest. COMPARISON: Comparison is made with prior study dated 04/15/2022. FINDINGS: EKG electrodes are seen. Patchy right lower lobe infiltrate. There is no demonstrated pleural abnormality. Normal size heart. Normal mediastinum and alton. Normal visualized pulmonary arteries. There is atherosclerotic tortuosity of the aortic arch and descending thoracic aorta. There are diffuse degenerative changes of the visualized thoracic spine. Normal visualized ribs, clavicles, and shoulders. There is no demonstrated abnormality of the visualized soft tissue structures of the upper abdomen. RAD/Chest 1 View (Portable) IMPRESSION: Patchy right lower lobe infiltrate. Electronically Signed: Manolo Julian MD at 13:54 EST ,
--- NOTE | 2022-04-24 12:54 | EDS_ITS ---
HPI History of Present Illness Chief Complaint: Alt LOC Detail of Chief Complaint: Depressed level of consciousness Informant: parent, EMS and SNF Onset/Context/Timing Onset: - (Last known well 0 yesterday , April 23) Context: Sudden Onset Timing: Continuous Quality: Depressed level of consciousness Current Severity: Severe Maximum Severity: Severe Worsened by: Unknown Relieved by: Nothing Associated Symptoms Associated Symptoms: Unknown Narrative Narrative: Patient is a 56-year-old male who is cognitively impaired. He does self cath himself and has history of recurrent urinary tract infections. He is a kidney transplant recipient. 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 He normally is alert and oriented. Unable to obtain any history. Prior similar symptoms: No Recent Illness/Hospitalization: No PFSH PFSH Medical History Anemia Bronchitis CKD (chronic kidney disease), stage III Congenital nystagmus DVT (deep venous thrombosis) HTN (hypertension) Mild intellectual disability Neurogenic bladder disorder Pancytopenia Pulmonary embolism Urinary retention Vocal cord dysfunction Home Medications mycophenolate mofetil 500 mg tablet 500 mg PO 0900,2099 Anti-Rejection 07/14/16 [History Last Taken 02/13/22] amlodipine 5 mg tablet 5 mg PO QHS BLOOD PRESSURE 09/29/17 [History Last Taken 02/12/22] tacrolimus 1 mg capsule, immediate-release 1 mg PO 0900,2099 ANTI-REJECTION 01/11/18 [History Last Taken 02/13/22] multivitamin 1 tab PO QHS 02/13/22 [History Last Taken 02/12/22] tacrolimus 0.5 mg capsule, immediate-release 0.5 mg PO 0900,2099 anti rejection 02/13/22 [History Last Taken 02/13/22] acetaminophen 325 mg tablet (Tylenol) 650 mg PO Q6H PRN PRN Pain 1-10 Or Fever>100.7 #0 tabs 04/21/22 [Rx Last Taken Unknown] sodium bicarbonate 650 mg tablet 1,300 mg PO TID #6 tabs 04/21/22 [Rx Last Taken Unknown] Allergy/AdvReac Type Severity Reaction Status Date / Time anything red AdvReac Hives Uncoded 04/24/22 12:49 Family History Mother Hypertension Father Diabetes Surgical History Kidney transplant recipient Renal transplant, status post S/P arteriovenous (AV) fistula creation Social History (Updated 04/24/22 @ 12:[address] Denys Reed MD) household members: none housing: group home Smoking Status: Never smoker second hand exposure: No alcohol intake: never substance use type: does not use caffeine: No ROS ROS ED Review of Systems ROS Unobtainable: due to mental status EXAM Physical Exam Const Vital Signs: 04/24/22 12:49 04/24/22 12:54 04/24/22 12:55 Temperature 98.2 F 96.8 F L Temperature Source Temporal Axillary Pulse Rate 85 Respiratory Rate 17 Respiratory Effort Normal Non-Labored Blood Pressure 118/73 Blood Pressure Mean 88 Pulse Ox 99 Oxygen Delivery Method Room Air 04/24/22 12:54 04/24/22 13:11 Temperature 96.8 F L 96.6 F L Temperature Source Axillary Core Pulse Rate 82 Respiratory Rate 21 H Respiratory Effort Blood Pressure 118/73 Blood Pressure Mean 88 Pulse Ox 99 Oxygen Delivery Method Room Air Positive well nourished, cachectic and unkempt General Appearance ED: unkempt, cachectic, NAD and pallor; Negative for cyanotic or diaphoretic Nutritional Appearance: cachectic HEENT Reports dry mucous membranes HEENT Narrative: Head is atraumatic normocephalic. TMs normal. Ears normal. Nares patent. Poor dentition. Mouth ED: Yes dry mucous membranes Mouth: dry mucous membranes Eyes PERRL and EOMs intact bilaterally Eyes Narrative: Patient has congenital horizontal nystagmus. General Eye ED: Negative for pale conjunctiva or scleral icterus Neck no lymphadenopathy, supple and no JVD Neck Narrative: Trach is There is no ST Tory stridor. Chest Wall inspection of chest normal and palpation of chest normal Resp normal respiratory effort and No clear to auscultation bilaterally Auscultation: rhonchi left upper, right upper, left lower and right lower Cardio regular rate, regular rhythm, S1 normal heart sound, S2 normal heart sound and no murmurs GI normal to inspection, nondistended, normoactive bowel sounds, non-tender, non-distended and no masses; Negative for hepatosplenomegaly Back/Spine no CVA tenderness Extremity normal to inspection General Extremety ED: Negative for edema or tenderness General Extremity: Negative for edema Neuro No oriented x3 Neuro Narrative: Patient moans to noxious stimuli. Sensorium / Orientation: orientation impaired and stuporous; Negative for alert Psych Psych Narrative: Unable to assess Appearance: unkempt Skin no wounds and No skin turgor normal General Skin Exam: pallor; Negative for jaundice MDM MDM MDM Narrative Medical decision making narrative: Since patient is on immunosuppressive meds has history of frequent urinary tract infections and self caths need to evaluate for urinary tract infection. Also need to evaluate for metabolic causes. Since he does attempt to move his extremities to noxious stimuli and there is no history of head trauma CT was not initially ordered. If work-up for metabolic infectious cause is negative will obtain CT of the head. Because nursing staff was getting low or inaccurate temperatures a temperature probe Ga was placed. His core temperature is 96 degrees which raises concern for sepsis. Because there is no obvious metabolic or infectious etiology for his change in mental status and mother is concerned he has a new facial droop CT of the head was obtained. CT reveals opacification of right maxillary sinus and ethmoid sinus. Do not believe this was the cause of his change in mental status. Since he is a recipient of kidney and his creatinine is gone up we will hydrate. Hospitalist been called because of change in mental status. Lab Data Attestation: I reviewed the patient's lab results. Lab results narrative: Patient neutropenic. This is not abnormal for him. Patient does have anemia. He is at essentially base . Comprehensive metabolic panel reveals a 9 anion gap acidosis. This is chronic. BUN is 68 which is baseline. Creatinine has increased steadily and is now 4.22. Last creatinine was 2.9. Labs: Laboratory Results - last 24 hr 04/24/22 04/24/22 04/24/22 13:00 13:00 13:51 WBC 3.6 L RBC 3.12 L Hgb 9.2 L Hct 29.0 L MCV 92.9 MCH 29.5 MCHC 31.7 L RDW Std Deviation 47.1 H RDW Coeff of Anil 14.1 Plt Count 176 MPV 10.6 Immature Gran % (Auto) 0.300 Neut % (Auto) 72.8 H Lymph % (Auto) 11.3 L [place] % (Auto) 12.4 H Eos % (Auto) 2.7 Baso % (Auto) 0.5 Absolute Neuts (auto) 2.7 Absolute Lymphs (auto) 0.41 L Nucleated RBC % 0 Hypochromasia 1+ Ovalocytes 1+ Schistocytes RARE Sodium 145 Potassium 4.9 Chloride 120 H Carbon Dioxide 15.0 L Anion Gap 10 BUN 68 H Creatinine 4.22 H Estim Creat Clear Calc 22.39 Est GFR (MDRD) Af Amer 19 L Est GFR (MDRD) Non-Af 16 L BUN/Creatinine Ratio 16.1 Glucose 112 H Calcium 8.4 L Total Bilirubin 1.10 H AST 51 H ALT 47 Alkaline Phosphatase 131 H Total Protein 5.7 L Albumin 2.6 L Globulin 3.1 Albumin/Globulin Ratio 0.8 L Urine Color Yellow Urine Clarity Clear Urine pH 8.0 Ur Specific [place] 1.010 Urine Protein 30 H Urine Glucose (UA) Normal Urine Ketones Negative Urine Occult Blood 150 H Urine Nitrite Negative Urine Bilirubin Negative Urine Urobilinogen Normal Ur Leukocyte Esterase 100 H Urine RBC 10-25 SEEN Urine WBC 10-25 SEEN Ur Squamous Epith Cells 0 SEEN Urine Bacteria 0 SEEN Urine Mucus 0 SEEN Radiography Chest X-Ray - ED: 1 View and Read by ED Physician (Single view portable chest x- ray reveals no acute process. There is minimal chronic changes noted. Cardiac silhouette size normal. Perihilar region normal. [place] structures are unremarkable., 1321.) Diagnostic Testing: Clinical Impression(s) from Imaging Studies Chest X-Ray 04/24/22 12:52 IMPRESSION: Patchy right lower lobe infiltrate. Electronically Signed: Manolo Julian MD at 13:54 EST , Brain CT 04/24/22 14:19 IMPRESSION: Opacification of the right maxillary sinus with partial opacification of the right ethmoid sinus. Electronically Signed: Manolo Julian MD at 15:00 EST , Rhythm Strip Rhythm Strip: Sinus Rhythm Rate: 89 Discharge Plan Triage Chief Complaint: Alt LOC ED Provider: Denys Reed Dx/Rx/DC Orders Clinical Impression: Acute alteration in mental status, Kidney transplant recipient, Bladder dysfunction, Acute renal failure superimposed on stage 3a chronic kidney disease, Neutropenia, Anemia in chronic illness Prescriptions: No Action mycophenolate mofetil 500 MG tablet 500 mg PO 899,2099 Label Comments: anti rejection amlodipine 5 MG tablet 5 mg PO QHS Hold Instructions: Until seen again by nephrology tacrolimus 1 MG capsule 1 mg PO 899,2099 Label Comments: TAKE TWO CAPSULES BY MOUTH TWICE DAILY multivitamin Tablet 1 tab PO QHS tacrolimus 0.5 mg capsule 0.5 mg PO 899,2099 Label Comments: take 1 capsule by mouth twice a day acetaminophen [Tylenol] 325 mg Tablet 650 mg PO Q6H PRN PRN (Reason: Pain 1-10 Or Fever>100.7) Qty: 0 0RF sodium bicarbonate 650 mg tablet 1,300 mg PO TID Qty: 6 0RF Primary Care Provider: Mike Bella Referrals: Mike Bella MD [Primary Care Provider] - Disposition Disposition: Acute Care Hospital [facility]
--- NOTE | 2022-04-24 12:55 | ED.RN ---
pt is mrdd
--- NOTE | 2022-04-24 13:09 | ED.RN ---
mom states states rt eye is droopy.
[2022-04-24 13:20] LABS: Absolute Lymphocyte Count 0.41 X10^3/uL (0.83-4.51); Absolute Neutrophil Count 2.7 X10^3/uL (2.0-7.7); Basophil# 0.02 X10^3/uL; Basophil% 0.5 % (0-1); Eosinophils% 2.7 % (0-5); Hemoglobin 9.2 g/dL (13.0-16.5); Lymphocyte # 0.41 X10^3/ul (0.83-4.51); Lymphocyte % 11.3 % (19-41); Mean Corp Hgb Conc 31.7 g/dL (32-36); Mean Corpuscular Hgb 29.5 pg (27.0-32.0); Mean Corpuscular Volume 92.9 fL (80-94); Mean Platelet Vol. 10.6 fl (6.2-12.0); Monocyte# 0.45 X10^3/uL; Monocyte% 12.4 % (0-10); NRBC Flagged by Analyzer 0 % (0-5); Neutrophil # 2.65 X10^3/uL (2.7-7.7); Neutrophil % 72.8 % (47-70); POSITIVE DIFFERENTIAL YES; Platelet Count 176 K/mm3 (150-450); RBC Distribution Width CV 14.1 % (11.6-14.6); RBC Distribution Width SD 47.1 fl (35.1-43.9); Red Blood Count 3.12 M/mm3 (4.6-6.2); White Blood Count 3.6 K/mm3 (4.4-11.0)
[2022-04-24 13:22] LABS: Differential Indicated SCAN CRITERIA MET
[2022-04-24 13:35] LABS: ALB/GLOB Ratio 0.8 RATIO (0.9-2.4); AST(SGOT) 51 U/L (15-37); Alanine Aminotransfer ALT/SGPT 47 U/L (16-61); Albumin, Serum 2.6 g/dL (3.2-5.0); Alkaline Phosphatase 131 U/L (45-117); Anion Gap 10 (5-15); BUN 68 mg/dL (7-18); BUN/Creat Ratio 16.1 RATIO (10-20); Calcium,Total 8.4 mg/dL (8.5-10.1); Chloride 120 mmol/L (98-107); Creatinine, Serum 4.22 mg/dL (0.70-1.30); EST Glomerular Filtration Rate 16 mL/min (>60); Est Glom Filt Rate - Afr Amer 19 mL/min (>60); Estimated Creatinine Clearance 22.39 ml/min; Globulin 3.1 g/dL (2.2-4.2); Glucose 112 mg/dL (74-106); Potassium 4.9 mmol/L (3.5-5.1); Protein, Total 5.7 g/dL (6.4-8.2); Sodium Level 145 mmol/L (136-145)
[2022-04-24 13:44] LABS: Hypochromasia 1+
[2022-04-24 13:45] LABS: Ovalocyte 1+; Schistocytes RARE
[2022-04-24 13:58] LABS: Bacteria 0 SEEN /hpf (None Seen); Mucous, Urine 0 SEEN /hpf (<or=2+); Squamous Epithelial Cells - UA 0 SEEN /hpf (0-5)
[2022-04-24 14:00] LABS: Color, Urine Yellow (Yellow); Glucose, Dipstick Normal (Normal); Ketone-Dipstick Negative (Negative); Leukocyte Esterase-Dipstick 100 /ul (Negative); Nitrite-Dipstick Negative (Negative); Occult Blood-Urine 150 /ul (Negative); Protein-Dipstick 30 mg/dl (Negative); Urine Bilirubin Dipstick Negative (Negative); Urine Clarity Clear (Clear); Urine Urobilinogen Normal (Normal)
[2022-04-24 14:08] LABS: Red Blood Cells-Urine 10-25 SEEN /hpf (0-5); White Blood Cells 10-25 SEEN /hpf (0-5)
--- NOTE | 2022-04-24 14:19 | CT_ITS ---
STUDY: CT BRAIN WITHOUT CONTRAST REASON FOR EXAM: Male, 56 years old. Acute change in mental status. Recent renal transplant. RADIATION DOSAGE (If Supplied By Facility): CTDIvol = ( 44.99 ) mGy, DLP = ( 829.85 ) mGycm TECHNIQUE: Transaxial CT imaging of the brain was performed without administration of intravenous contrast material. Individualized dose optimization techniques were used for this CT. COMPARISON: No relevant priors. FINDINGS: Normal soft tissue structures. Normal calvarium. Normal size ventricles and extra-axial spaces for the patient''s age. Normal white matter tracts of the cerebral hemispheres. Normal basal ganglia and thalami. Normal brainstem. Normal cerebellum. There is no intracranial hemorrhage. There are no findings of an acute ischemic infarction. There is opacification of the right maxillary sinus. Partial opacification of the right ethmoid sinus. CT/Brain/Head without Contrast IMPRESSION: Opacification of the right maxillary sinus with partial opacification of the right ethmoid sinus. Electronically Signed: Manolo Julian MD at 15:00 EST ,
[2022-04-24] MEDS: 0.9% Normal Saline 1,000 ML 150 ML IV (15:27)
--- NOTE | 2022-04-24 16:04 | US_ITS ---
STUDY: ABDOMINAL ULTRASOUND - RIGHT UPPER QUADRANT REASON FOR VISIT: Male, 56 years old elevated LFTs -- RUQ US TECHNIQUE: Ultrasound evaluation of the right upper quadrant was performed with real-time and static mena-scale imaging. TECHNICAL QUALITY: Adequate. COMPARISON: None. FINDINGS: Liver: The liver measures 17.8 cm. There is normal echogenicity of the liver. The bile ducts are within normal limits. There is hepatic color flow. The direction of portal flow is hepatopetal. There is no demonstrated mass lesion. Varicose veins are seen in the smith hepatis may be due to portal hypertension. Gallbladder: Normal distended gallbladder. The gallbladder wall measures 6 mm. There is a negative sonographic Gannon''s sign. There is no pericholecystic fluid. There are no gallstones. Common Bile Duct (C.B.D.): The common bile duct could not be visualized. Pancreas: There is nonvisualization of the pancreas. Right Kidney transplant: Normal size kidney transplant, its measures 9 x 5.1 x 4.6 cm. Normal renal cortex. The renal cortex measures 1.7 cm. There is no demonstrated renal mass or cyst. There is no hydronephrosis. US/Abdomen Limited IMPRESSION: Marked thickening of the gallbladder wall measuring up to 6 mm may be due to liver cirrhosis. Further evaluation by MRCP/MRI of the liver would be helpful. Varicose veins are seen in the smith hepatis may be due to portal hypertension. Electronically Signed: Mayra Madrid MD at 3:52 EST ,
--- NOTE | 2022-04-24 16:04 | MRI_ITS ---
STUDY: MRI BRAIN WITHOUT CONTRAST REASON FOR EXAM: Male, 56 years old. encephalopathy TECHNIQUE: Standardized multiplanar fat and water weighted pulse sequences were obtained. COMPARISON: No relevant prior imaging available for comparison. HEMISPHERES, CEREBELLUM AND BRAINSTEM: 1. The cerebral parenchyma, ventricular system, subarachnoid spaces have normal configuration and density. There is a normal gyral pattern. There is normal mena/white differentiation. No midline shift.. 2. The hemispheric white matter has normal appearance. 3. No intraparenchymal mass, hemorrhage, or acute territorial infarct. 4. The cerebellum, brainstem, basilar and suprasellar cisterns have normal appearance. No Chiari malformation. PITUITARY: Infundibulum and pituitary have normal configuration. Midline structures appear normal. CSF SPACES: Appropriate for age. No hydrocephalus. Basal cisterns are patent. VESSELS: 1. There are normal flow voids noted in the great vessels at the skull base ORBITS AND PARANASAL SINUSES: 1. Both globes, extraocular muscles, optic nerves and retrobulbar fat appear unremarkable. 2. Right maxillary opacification is present with chronic sinusitis not excluded. Left mastoid air cell mild effusion is present. Minimal effusion on the right is also noted. BONY ELEMENTS: Bony elements of the cranial vault, facial skeleton and skull base have normal appearance. SCALP AND SOFT TISSUES: Normal appearance of the soft tissues of the scalp and the visualized face OTHER: None MRI/Brain without Contrast IMPRESSION: 1. No evidence of acute intracranial bleed, mass or ischemia. 2. Right maxillary sinus opacification concerning for underlying chronic sinusitis. 3. Mild left and minimal right mastoid air cell effusion, clinically correlate for congestive/inflammatory process. Electronically Signed: Jacob Feng DO at 18:56 EST ,
--- NOTE | 2022-04-24 16:05 | HP.PCM.HOS_ITS ---
HPI - General General Date of Service: 04/24/22 Chief Complaint: confusion HPI Narrative ROOSEVELT GARCIA, is a 56 M who presents with lethargy. Patient was just discharged on the with norovirus as well as UTI. Patient completed antibiotics during his hospitalization. Patient, with his debility, was [facility]. Since being there, the patient has become just more lethargic and unresponsive. Patient does have a history of a developmental delay but was rather high functioning previously where he was working and driving a car. Yamel ent is sleeping but does awake but is nonverbal. Patient's brother, whom I talked over the phone with, states that the patient is able to talk normally but does use hearing aids. Hearing aids to help him understand people. The brother has noted that the patient does have slurred speech. He he does say that his speech is slightly improved when he uses hearing aids but is otherwise slurred. Patient does have a history of a kidney transplant and has been compliant with his medications. [facility] Medical History Anemia Bronchitis CKD (chronic kidney disease), stage III Congenital nystagmus DVT (deep venous thrombosis) HTN (hypertension) Mild intellectual disability Neurogenic bladder disorder Pancytopenia Pulmonary embolism Urinary retention Vocal cord dysfunction Home Medications mycophenolate mofetil 500 mg tablet 500 mg PO 0900,2099 Anti-Rejection 07/14/16 [History Last Taken 02/13/22] amlodipine 5 mg tablet 5 mg PO QHS BLOOD PRESSURE 09/29/17 [History Last Taken 02/12/22] tacrolimus 1 mg capsule, immediate-release 1 mg PO 0900,2099 ANTI-REJECTION 01/11/18 [History Last Taken 02/13/22] multivitamin 1 tab PO QHS 02/13/22 [History Last Taken 02/12/22] tacrolimus 0.5 mg capsule, immediate-release 0.5 mg PO 0900,2099 anti rejection 02/13/22 [History Last Taken 02/13/22] acetaminophen 325 mg tablet (Tylenol) 650 mg PO Q6H PRN PRN Pain 1-10 Or Fever>100.7 #0 tabs 04/21/22 [Rx Last Taken Unknown] sodium bicarbonate 650 mg tablet 1,300 mg PO TID #6 tabs 04/21/22 [Rx Last Taken Unknown] Allergy/AdvReac Type Severity Reaction Status Date / Time anything red AdvReac Hives Uncoded 04/24/22 12:49 Family History Mother Hypertension Father Diabetes Surgical History Kidney transplant recipient Renal transplant, status post S/P arteriovenous (AV) fistula creation Social History household members: none housing: group home Smoking Status: Never smoker second hand exposure: No alcohol intake: never substance use type: does not use caffeine: No ROS Review of Systems ROS Unobtainable: due to encephalopathy Vital Signs Vital Signs Vital Signs: 04/24/22 12:49 04/24/22 12:54 04/24/22 12:55 Temperature 36.8 C 36.0 C L Temperature Source Temporal Axillary Pulse Rate 85 Respiratory Rate 17 Respiratory Effort Normal Non-Labored Blood Pressure 118/73 Blood Pressure Mean 88 Pulse Ox 99 Oxygen Delivery Method Room Air 04/24/22 12:54 04/24/22 13:11 04/24/22 15:26 Temperature 36.0 C L 35.9 C L 36.6 C Temperature Source Axillary Core Temporal Pulse Rate 82 81 Respiratory Rate 21 H 19 H Respiratory Effort Blood Pressure 118/73 105/67 Blood Pressure Mean 88 79 Pulse Ox 99 100 Oxygen Delivery Method Room Air Room Air 04/24/22 15:26 04/24/22 15:26 Temperature 37.1 C Temperature Source Temporal Pulse Rate 79 Respiratory Rate 13 Respiratory Effort Blood Pressure 105/67 Blood Pressure Mean 79 Pulse Ox 97 100 Oxygen Delivery Method Room Air Room Air Weight Weight: 79.1 kg Body Mass Index (BMI) 23.0 Physical Exam Const Constitutional Narrative: Awake. Requires some noxious stimuli to get him to open his eyes. And then he drifts off back to sleep. Afebrile. No respiratory distress. HEENT moist oral mucous membranes HEENT Narrative: Temporal wasting. Eyes EOMs intact bilaterally Eyes Narrative: No icterus Neck no lymphadenopathy Neck Narrative: No thyromegaly Resp normal respiratory effort, no retractions, no use of accessory muscles and clear to auscultation bilaterally Cardio regular rate, regular rhythm, S1 normal heart sound and S2 normal heart sound GI normal to inspection, nondistended, normoactive bowel sounds, soft to palpation, non-tender and non-distended Extremity normal to inspection and no clubbing, cyanosis or edema Extremity Narrative: Does have Neuro moves all extremities Neuro Narrative: Upgoing Babinski bilaterally. No muscle rigidity noted. Results Lab / Micro Data Attestation: I reviewed the patient's lab results. Result Diagrams: 04/24/22 13:00 04/24/22 13:00 Labs: Laboratory Results - last 24 hr 04/24/22 13:00: WBC 3.6 L, RBC 3.12 L, Hgb 9.2 L, Hct 29.0 L, MCV 92.9, MCH 29.5, MCHC 31.7 L, RDW Std Deviation 47.1 H, RDW Coeff of Anil 14.1, Plt Count 176, MPV 10.6, Immature Gran % (Auto) 0.300, Neut % (Auto) 72.8 H, Lymph % (Auto) 11.3 L, [place] % (Auto) 12.4 H, Eos % (Auto) 2.7, Baso % (Auto) 0.5, [place] Neuts (auto) 2.7, Absolute Lymphs (auto) 0.41 L, Nucleated RBC % 0, Hypoc hromasia 1+, Ovalocytes 1+, Schistocytes RARE 04/24/22 13:00: Sodium 145, Potassium 4.9, Chloride 120 H, Carbon Dioxide 15.0 L , Anion Gap 10, BUN 68 H, Creatinine 4.22 H, Estim Creat Clear Calc 22.39, Est GFR (MDRD) Af Amer 19 L, Est GFR (MDRD) Non-Af 16 L, BUN/Creatinine Ratio 16.1, Glucose 112 H, Calcium 8.4 L, Total Bilirubin 1.10 H, AST 51 H, ALT 47, Alkaline Phosphatase 131 H, Total Protein 5.7 L, Albumin 2.6 L, Globulin 3.1, Albumin/Globulin Ratio 0.8 L 04/24/22 13:51: Urine Color Yellow, Urine Clarity Clear, Urine pH 8.0, Ur Specific [place] 1.010, Urine Protein 30 H, Urine Glucose (UA) Normal, Urine Ketones Negative, Urine Occult Blood 150 H, Urine Nitrite Negative, Urine Bilirubin Negative, Urine Urobilinogen Normal, Ur Leukocyte Esterase 100 H, Urine RBC 10-25 SEEN, Urine WBC 10-25 SEEN, Ur Squamous Epith Cells 0 SEEN, Urine Bacteria 0 SEEN, Urine Mucus 0 SEEN Rhythm Strip Rhythm Strip: Sinus Rhythm Rate: 89 Radiology Impression Chest X-Ray 04/24/22 12:52 IMPRESSION: Patchy right lower lobe infiltrate. Electronically Signed: Manolo Julian MD at 13:54 EST , Brain CT 04/24/22 14:19 IMPRESSION: Opacification of the right maxillary sinus with partial opacification of the right ethmoid sinus. Electronically Signed: Manolo Julian MD at 15:00 EST , Assessment & Plan Assessment/Plan (1) Encephalopathy: PLAN: Previous, patient was rather high functioning despite developmental delay. Patient was working and able to drive. The patient's brother states that he had slurred speech but that was attributable to his hearing which may have improved after getting hearing aids. Etiology I suspect is metabolic possibility of dehydration when we will give him fluids. Though given the degree of his confusion compared to what is described as his baseline, I cannot rule out the possibility of him being postictal and having bowers d a seizure. We will check an MRI of the brain and EEG. I am also concerned that the patient may have other disease processes going on. The brother seems that the slurred speech was solely due to his hearing difficulties. Saying that the patient was having a heavy tongue. I did tell the brother that that is atypical for hearing loss and people may speak in monotone or loudly but slurred speech is not typically seen. Patient does use a walker. I am concerned about some other neurodegenerative process that may be complicating this such as Parkinson's versus PSP versus MSA. We will check an MRI to rule out a stroke which I doubt. Patient has no meningismus and therefore will not be proceeding with lumbar puncture at this time. Patient will also be n.p.o. as he clearly cannot swallow safely on his own at this time. Consult physical, occupational and speech therapy. Cannot rule out the possibility the patient may require PEG tube placement in the future. No evidence of UTI at this time. (2) PRISCILLA (acute kidney injury): PLAN: On chronic kidney disease 3B IV fluids (3) Kidney transplant recipient: PLAN: Creatinine has gotten worse. May be related with dehydration but cannot rule out kidney rejection. Consult nephrology Check tacrolimus level Continue with mycophenolate and tacrolimus for now. (4) Metabolic acidosis: PLAN: Secondary to his kidney failure. Patient takes bicarbonate tablets at home. Patient is currently NPO. Will place him on a bicarbonate drip. (5) Severe protein-calorie malnutrition: PLAN: Patient has not been eating for some time according the patient's mother. Consult nutrition for further recommendations. Currently patient is n.p.o. Ideally would like to advance his diet orally if he can be passed by speech therapy. If he cannot, then we will need to consider alternate means of nutrition including PEG tube or TPN. (6) Transaminitis: PLAN: Unclear significance. Follow-up labs in the a.m. Check right upper quadrant ultrasound PLAN: Plan Chronic stable conditions * Congenital nystagmus * Developmental disability * Chronic neutropenia VTE prophylaxis: Moderate risk. Subcu heparin. CODE STATUS: Discussed with the patient's brother, who is his power of corporate associate attorney, patient is to be full CODE STATUS. Charges/Coding Visit Charges Inpatient E&M: 01882 Init Hosp L3
--- NOTE | 2022-04-24 17:55 | NURSING ---
Pt left floor for MRI.
--- NOTE | 2022-04-24 20:02 | CON.PCM.RE_ITS ---
HPI Consult Data Date of Consult: 04/24/22 HPI Narrative Reason for Consultation: PRISCILLA on CKD 4 i this transplant PT. He is known to our service. HPI Narrative: ROOSEVELT GARCIA, is a 56 M who presents [facility] Medical History Anemia Bronchitis CKD (chronic kidney disease), stage III Congenital nystagmus DVT (deep venous thrombosis) HTN (hypertension) Mild intellectual disability Neurogenic bladder disorder Pancytopenia Pulmonary embolism Urinary retention Vocal cord dysfunction Home Medications mycophenolate mofetil 500 mg tablet 500 mg PO 0900,2099 Anti-Rejection 07/14/16 [History Last Taken 02/13/22] amlodipine 5 mg tablet 5 mg PO QHS BLOOD PRESSURE 09/29/17 [History Last Taken 02/12/22] tacrolimus 1 mg capsule, immediate-release 1 mg PO 0900,2099 ANTI-REJECTION 01/11/18 [History Last Taken 02/13/22] multivitamin 1 tab PO QHS supplement 02/13/22 [History Last Taken 02/12/22] tacrolimus 0.5 mg capsule, immediate-release 0.5 mg PO 0900,2099 anti rejection 02/13/22 [History Last Taken 02/13/22] acetaminophen 325 mg tablet (Tylenol) 650 mg PO Q6H PRN PRN Pain 1-10 Or Fever>100.7 #0 tabs 04/21/22 [Rx Last Taken Unknown] sodium bicarbonate 650 mg tablet 1,300 mg PO TID #6 tabs 04/21/22 [Rx Last Taken Unknown] Allergy/AdvReac Type Severity Reaction Status Date / Time anything red AdvReac Hives Uncoded 04/24/22 12:49 Family History Mother Hypertension Father Diabetes Surgical History Kidney transplant recipient Renal transplant, status post S/P arteriovenous (AV) fistula creation Social History household members: none housing: [facility] Smoking Status: Never smoker second hand exposure: No alcohol intake: never substance use type: does not use caffeine: No ROS ROS Narrative this pt is well know to our service. He has progressive renal insufficiency. He has renal transplant and has been noncomliant with his meds and follow ups. . He comes back with Cr over 4 now. There is a question if he has sepsis at this point. Constitutional Constitutional: Reports systems reviewed and no addt'l complaints, except as documented Eyes Eyes: Reports systems reviewed and no addt'l complaints, except as documented ENT HEENT: Reports systems reviewed and no addt'l complaints, except as documented Cardiovascular Cardiovascular: Reports systems reviewed and no addt'l complaints, except as doc umented Respiratory/Chest Respiratory/Chest: Reports systems reviewed and no addt'l complaints, except as documented Gastrointestinal Gastrointestinal: Reports systems reviewed and no addt'l complaints, except as documented Genitourinary Genitourinary: Reports systems reviewed and no addt'l complaints, except as documented Musculoskeletal Musculoskeletal: Reports systems reviewed and no addt'l complaints, except as documented Integumentary Integumentary: Reports systems reviewed and no addt'l complaints, except as documented Neurologic Neurologic: Reports systems reviewed and no addt'l complaints, except as documented Psychiatric Psychiatric: Reports systems reviewed and no addt'l complaints, except as documented Endocrine Endocrinology: Reports systems reviewed and no addt'l complaints, except as documented Hematologic/Lymphatic Hematologic/Lymphatic: Reports systems reviewed and no addt'l complaints, except as documented Allergic/Immunologic Allergic/Immunologic: Reports systems reviewed and no addt'l complaints, except as documented Physical Exam Const alert General Appearance: cooperative Orientation / Consciousness: oriented to person Exam Limitations: no limitations HEENT normocephalic Head and Scalp: normal to inspection Face and Sinus: normal facial exam Psych Attention / Concentration: attention grossly intact Memory / Cognition: memory grossly intact Lab / Micro Data Result Diagrams: 04/24/22 13:00 04/24/22 13:00 Labs: Laboratory Results - last 24 hr 04/24/22 13:00: WBC 3.6 L, RBC 3.12 L, Hgb 9.2 L, Hct 29.0 L, MCV 92.9, MCH 29.5, MCHC 31.7 L, RDW Std Deviation 47.1 H, RDW Coeff of Anil 14.1, Plt Count 176, MPV 10.6, Immature Gran % (Auto) 0.300, Neut % (Auto) 72.8 H, Lymph % (Auto) 11.3 L, [place] % (Auto) 12.4 H, Eos % (Auto) 2.7, Baso % (Auto) 0.5, Absolute Neuts (auto) 2.7, Absolute Lymphs (auto) 0.41 L, Nucleated RBC % 0, Hypochromasia 1+, Ovalocytes 1+, Schistocytes RARE 04/24/22 13:00: Sodium 145, Potassium 4.9, Chloride 120 H, Carbon Dioxide 15.0 L , Anion Gap 10, BUN 68 H, Creatinine 4.22 H, Estim Creat Clear Calc 22.39, Est GFR (MDRD) Af Amer 19 L, Est GFR (MDRD) Non-Af 16 L, BUN/Creatinine Ratio 16.1, Glucose 112 H, Calcium 8.4 L, Total Bilirubin 1.10 H, AST 51 H, ALT 47, Alkaline Phosphatase 131 H, Total Protein 5.7 L, Albumin 2.6 L, Globulin 3.1, Albumin/Lidia bulin Ratio 0.8 L 04/24/22 13:51: Urine Color Yellow, Urine Clarity Clear, Urine pH 8.0, Ur Specific [place] 1.010, Urine Protein 30 H, Urine Glucose (UA) Normal, Urine Ketones Negative, Urine Occult Blood 150 H, Urine Nitrite Negative, Urine Bilirubin Negative, Urine Urobilinogen Normal, Ur Leukocyte Esterase 100 H, Urine RBC 10-25 SEEN, Urine WBC 10-25 SEEN, Ur Squamous Epith Cells 0 SEEN, Ur ine Bacteria 0 SEEN, Urine Mucus 0 SEEN 04/24/22 16:54: Ammonia 131.0 H Rhythm Strip Rhythm Strip: Sinus Rhythm Rate: 89 Radiology Impression Chest X-Ray 04/24/22 12:52 IMPRESSION: Patchy right lower lobe infiltrate. Electronically Signed: Manolo Julian MD at 13:54 EST , Brain CT 04/24/22 14:19 IMPRESSION: Opacification of the right maxillary sinus with partial opacification of the right ethmoid sinus. Electronically Signed: Manolo Julian MD at 15:00 EST , Brain MRI 04/24/22 16:04 IMPRESSION: 1. No evidence of acute intracranial bleed, mass or ischemia. 2. Right maxillary sinus opacification concerning for underlying chronic sinusitis. 3. Mild left and minimal right mastoid air cell effusion, clinically correlate for congestive/inflammatory process. Electronically Signed: Jacob Feng DO at 18:56 EST ,
[2022-04-24] MEDS: Heparin Injection (Vial) 5,000 UNIT/ML VIAL 5000 UNIT SC (20:59)
[2022-04-25] VITALS (9 sets, daily range): BP systolic 94–108; BP diastolic 42–70; PULSE 61–82; RESP 16–20; TEMP 36.2–37.1; O2SAT 95–100
[2022-04-25 05:41] LABS: Absolute Lymphocyte Count 0.47 X10^3/uL (0.83-4.51); Absolute Neutrophil Count 1.9 X10^3/uL (2.0-7.7); Basophil# 0.03 X10^3/uL; Eosinophil# 0.12 X10^3/uL; Hematocrit 24.9 % (40-54); Hemoglobin 8.2 g/dL (13.0-16.5); Lymphocyte # 0.47 X10^3/ul (0.83-4.51); Lymphocyte % 15.7 % (19-41); Mean Corp Hgb Conc 32.9 g/dL (32-36); Mean Corpuscular Hgb 30.6 pg (27.0-32.0); Mean Corpuscular Volume 92.9 fL (80-94); Mean Platelet Vol. 10.7 fl (6.2-12.0); Monocyte% 16.7 % (0-10); NRBC Flagged by Analyzer 0 % (0-5); Neutrophil # 1.87 X10^3/uL (2.7-7.7); Neutrophil % 62.3 % (47-70); POSITIVE DIFFERENTIAL YES; Platelet Count 141 K/mm3 (150-450); RBC Distribution Width CV 14.4 % (11.6-14.6); Red Blood Count 2.68 M/mm3 (4.6-6.2)
[2022-04-25 05:46] LABS: Differential Indicated SCAN CRITERIA MET
[2022-04-25 06:15] LABS: ALB/GLOB Ratio 0.8 RATIO (0.9-2.4); AST(SGOT) 44 U/L (15-37); Alanine Aminotransfer ALT/SGPT 41 U/L (16-61); Albumin, Serum 2.1 g/dL (3.2-5.0); Alkaline Phosphatase 113 U/L (45-117); Anion Gap 9 (5-15); BUN 64 mg/dL (7-18); BUN/Creat Ratio 16.1 RATIO (10-20); Calcium,Total 7.7 mg/dL (8.5-10.1); Chloride 121 mmol/L (98-107); Creatinine, Serum 3.97 mg/dL (0.70-1.30); EST Glomerular Filtration Rate 17 mL/min (>60); Est Glom Filt Rate - Afr Amer 20 mL/min (>60); Estimated Creatinine Clearance 18.42 ml/min; Globulin 2.7 g/dL (2.2-4.2); Glucose 114 mg/dL (74-106); Potassium 4.3 mmol/L (3.5-5.1); Protein, Total 4.8 g/dL (6.4-8.2); Sodium Level 146 mmol/L (136-145); Thyroid Stim Hormone (TSH) 2.37 uIU/mL (0.358-3.74)
[2022-04-25 06:37] LABS: Differential Comment SCANNED
--- NOTE | 2022-04-25 08:37 | TELEMED_ITS ---
[facility] Tele[facility] has confirmed receipt of a request for visit. This document confirms receipt of the order initiating the consult. To find the results of the consultation, please view the patient's reports for the scanned Telemed Consult.
[2022-04-25] MEDS: 0.9% Normal Saline 1,000 ML 150 ML IV ×3 (09:30→21:38)
--- NOTE | 2022-04-25 10:37 | PCM.CONS.R ---
Assessment & Plan Assessment/Plan (1) Metabolic acidosis: PLAN: Start bicarb drip (2) Kidney transplant recipient: PLAN: Resume antirejection medications (3) Acute renal failure superimposed on stage 3a chronic kidney disease: PLAN: Continue with IV fluids (4) Acute kidney failure: HPI Consult Data Date of Consult: 04/25/22 HPI Narrative Reason for Consultation: Acute on chronic renal failure, patient with kidney transplant HPI Narrative: ROOSEVELT GARCIA, is a 56 M who presents shortly after discharge with altered mental status. He is well-known to our service. He was just discharged 3 days ago. Previous admission for acute kidney injury due to prerenal azotemia. His baseline creatinine appears to be 2.5, during hospitalization 3 days ago, his creatinine chanell up to 5, but improved to 2.9 before discharge. He comes back 3 days later with pretty much the same issue, creatinine is over 4, acidosis. Started on IV fluids, creatinine is coming down nicely. He remains acidotic. He is volume depleted on physical exam. He has been managed with tacrolimus, CellCept and prednisone, but intake of the antirejection medications is erratic [facility] Medical History Anemia Bronchitis CKD (chronic kidney disease), stage III Congenital nystagmus DVT (deep venous thrombosis) HTN (hypertension) Mild intellectual disability Neurogenic bladder disorder Pancytopenia Pulmonary embolism Urinary retention Vocal cord dysfunction Home Medications mycophenolate mofetil 500 mg tablet 500 mg PO 0900,2100 Anti-Rejection 07/14/16 [History Last Taken 02/13/22] amlodipine 5 mg tablet 5 mg PO QHS BLOOD PRESSURE 09/29/17 [History Last Taken 02/12/22] tacrolimus 1 mg capsule, immediate-release 1 mg PO 0900,2100 ANTI-REJECTION 01/11/18 [History Last Taken 02/13/22] multivitamin 1 tab PO QHS supplement 02/13/22 [History Last Taken 02/12/22] tacrolimus 0.5 mg capsule, immediate-release 0.5 mg PO 0900,2100 anti rejection 02/13/22 [History Last Taken 02/13/22] acetaminophen 325 mg tablet (Tylenol) 650 mg PO Q6H PRN PRN Pain 1-10 Or Fever>100.7 #0 tabs 04/21/22 [Rx Last Taken Unknown] sodium bicarbonate 650 mg tablet 1,300 mg PO TID #6 tabs 04/21/22 [Rx Last Taken Unknown] Allergy/AdvReac Type Severity Reaction Status Date / Time anything red AdvReac Hives Uncoded 04/24/22 12:49 Family History Mother Hypertension Father Diabetes Surgical History Kidney transplant recipient Renal transplant, status post S/P arteriovenous (AV) fistula creation Social History household members: none housing: [facility] Smoking Status: Never smoker second hand exposure: No alcohol intake: never substance use type: does not use caffeine: No ROS Review of Systems ROS Unobtainable: due to encephalopathy, due to mental condition and due to mental status Physical Exam HEENT normocephalic Neck no lymphadenopathy Resp no use of accessory muscles and clear to auscultation bilaterally Cardio regular rate and no murmurs GI non-tender Auscultation: normoactive bowel sounds Palpation: soft and no hepatosplenomegaly Skin no rashes or lesions noted Psych Attitude: uncooperative Lab / Micro Data Attestation: I reviewed the patient's lab results. Result Diagrams: 04/25/22 05:30 04/25/22 05:30 Labs: Laboratory Results - last 24 hr 04/24/22 13:00: WBC 3.6 L, RBC 3.12 L, Hgb 9.2 L, Hct 29.0 L, MCV 92.9, MCH 29.5, MCHC 31.7 L, RDW Std Deviation 47.1 H, RDW Coeff of Anil 14.1, Plt Count 176, MPV 10.6, Immature Gran % (Auto) 0.300, Neut % (Auto) 72.8 H, Lymph % (Auto) 11.3 L, [place] % (Auto) 12.4 H, Eos % (Auto) 2.7, Baso % (Auto) 0.5, Absolute Neuts (auto) 2.7, Absolute Lymphs (auto) 0.41 L, Nucleated RBC % 0, Hypochromasia 1+, Ovalocytes 1+, Schistocytes RARE 04/24/22 13:00: Sodium 145, Potassium 4.9, Chloride 120 H, Carbon Dioxide 15.0 L, Anion Gap 10, BUN 68 H, Creatinine 4.22 H, Estim Creat Clear Calc 22.39, Est GFR (MDRD) Af Amer 19 L, Est GFR (MDRD) Non-Af 16 L, BUN/Creatinine Ratio 16.1, Glucose 112 H, Calcium 8.4 L, Total Bilirubin 1.10 H, AST 51 H, ALT 47, Alkaline Phosphatase 131 H, Total Protein 5.7 L, Albumin 2.6 L, Globulin 3.1, Albumin/Globulin Ratio 0.8 L 04/24/22 13:51: Urine Color Yellow, Urine Clarity Clear, Urine pH 8.0, Ur Specific [place] 1.010, Urine Protein 30 H, Urine Glucose (UA) Normal, Urine Ketones Negative, Urine Occult Blood 150 H, Urine Nitrite Negative, Urine Bilirubin Negative, Urine Urobilinogen Normal, Ur Leukocyte Esterase 100 H, Urine RBC 10-25 SEEN, Urine WBC 10-25 SEEN, Ur Squamous Epith Cells 0 SEEN, Urine Bacteria 0 SEEN, Urine Mucus 0 SEEN 04/24/22 16:54: Ammonia 131.0 H 04/25/22 05:30: WBC 3.0 L, RBC 2.68 L, Hgb 8.2 L, Hct 24.9 L, MCV 92.9, MCH 30.6, MCHC 32.9, RDW Std Deviation 48.0 H, RDW Coeff of Anil 14.4, Plt Count 141 L, MPV 10.7, Immature Gran % (Auto) 0.300, Neut % (Auto) 62.3, Lymph % (Auto) 15.7 L, [place] % (Auto) 16.7 H, Eos % (Auto) 4.0, Baso % (Auto) 1.0, Absolute Neuts (auto) 1.9 L, Absolute Lymphs (auto) 0.47 L, Nucleated RBC % 0, Differential Comment SCANNED, Diff Path Review August04/25/22 05:30: Sodium 146 H, Potassium 4.3, Chloride 121 H, Carbon Dioxide 16.0 L, Anion Gap 9, BUN 64 H, Creatinine 3.97 H, Estim Creat Clear Calc 18.42, Est GFR (MDRD) Af Amer 20 L, Est GFR (MDRD) Non-Af 17 L, BUN/Creatinine Ratio 16.1, Glucose 114 H, Calcium 7.7 L, Total Bilirubin 0.90, AST 44 H, ALT 41, Alkaline Phosphatase 113, Total Protein 4.8 L, Albumin 2.1 L, Globulin 2.7, Albumin/Globulin Ratio 0.8 L, TSH 2.37 Rhythm Strip Rhythm Strip: Sinus Rhythm Rate: 89 Radiology Impression Chest X-Ray 04/24/22 12:52 IMPRESSION: Patchy right lower lobe infiltrate. Electronically Signed: Manolo Julian MD at 13:54 EST , Brain CT 04/24/22 14:19 IMPRESSION: Opacification of the right maxillary sinus with partial opacification of the right ethmoid sinus. Electronically Signed: Manolo Julian MD at 15:00 EST , Abdomen Ultrasound 04/24/22 16:04 IMPRESSION: Marked thickening of the gallbladder wall measuring up to 6 mm may be due to liver cirrhosis. Further evaluation by MRCP/MRI of the liver would be helpful. Varicose veins are seen in the smith hepatis may be due to portal hypertension. Electronically Signed: Mayra Madrid MD at 3:52 EST , Brain MRI 04/24/22 16:04 IMPRESSION: 1. No evidence of acute intracranial bleed, mass or ischemia. 2. Right maxillary sinus opacification concerning for underlying chronic sinusitis. 3. Mild left and minimal right mastoid air cell effusion, clinically correlate for congestive/inflammatory process. Electronically Signed: Jacob Feng DO at 18:56 EST ,
[2022-04-25] MEDS: Tacrolimus Anhydrous 1 MG Capsule PO ×2 (11:02→21:40)
[2022-04-25] MEDS: Tacrolimus 0.5 MG Capsule PO ×2 (11:02→21:40)
[2022-04-25] MEDS: Mycophenolate Mofetil 250 MG Capsule 500 MG PO ×2 (11:02→21:40)
[2022-04-25] MEDS: Heparin Injection (Vial) 5,000 UNIT/ML VIAL 5000 UNIT SC ×2 (11:03→21:39)
--- NOTE | 2022-04-25 14:20 | PN.HOSP_ITS ---
Subjective Subjective No issues overnight, awaiting results of EEG. Initial work-up so far is unremarkable, renal function is improving with IV fluids Objective Data Objective Data Vital Signs: Vital Signs Temp Pulse Resp BP Pulse Ox O2 Del Method 98 F 64 16 97/70 100 Room Air 04/25/22 09:13 04/25/22 09:13 04/25/22 09:13 04/25/22 09:13 04/25/22 09:13 04/25/22 09:13 Oxygen Delivery Method Room Air Weight: 135 lb Body Mass Index (BMI) 17.9 Intake & Output: Intake and Output for Last 24 Hours 04/24/22 04/25/22 04/26/22 03:59 03:59 03:59 Intake Total 582.5 / 582.5 1467.5 / 1467.5 Output Total 325 / 325 550 / 550 Balance 257.5 / 257.5 917.5 / 917.5 Lab / Micro Data Result Diagrams: 04/25/22 05:30 04/25/22 05:30 Labs: Laboratory Results - last 24 hr 04/24/22 16:54: Ammonia 131.0 H 04/25/22 05:30: WBC 3.0 L, RBC 2.68 L, Hgb 8.2 L, Hct 24.9 L, MCV 92.9, MCH 30.6, MCHC 32.9, RDW Std Deviation 48.0 H, RDW Coeff of Anil 14.4, Plt Count 141 L, MPV 10.7, Immature Gran % (Auto) 0.300, Neut % (Auto) 62.3, Lymph % (Auto) 15.7 L, [place] % (Auto) 16.7 H, Eos % (Auto) 4.0, Baso % (Auto) 1.0, Absolute Neuts (auto) 1.9 L, Absolute Lymphs (auto) 0.47 L, Nucleated RBC % 0, Differential Comment SCANNED, Diff Path Review August04/25/22 05:30: Sodium 146 H, Potassium 4.3, Chloride 121 H, Carbon Dioxide 16.0 L, Anion Gap 9, BUN 64 H, Creatinine 3.97 H, Estim Creat Clear Calc 18.42, Est GFR (MDRD) Af Amer 20 L, Est GFR (MDRD) Non-Af 17 L, BUN/Creatinine Ratio 16.1, Glucose 114 H, Calcium 7.7 L, Total Bilirubin 0.90, AST 44 H, ALT 41, Alkaline Phosphatase 113, Total Protein 4.8 L, Albumin 2.1 L, Globulin 2.7, Albumin/Globulin Ratio 0.8 L, TSH 2.37 Micro: Microbiology 04/24/22 14:02 Blood Culture (Wb) - Left Wrist Blood Culture - Preliminary Radiography Diagnostic Testing: Radiology Impression Brain CT 04/24/22 14:19 IMPRESSION: Opacification of the right maxillary sinus with partial opacification of the right ethmoid sinus. Electronically Signed: Manolo Julian MD at 15:00 EST , Abdomen Ultrasound 04/24/22 16:04 IMPRESSION: Marked thickening of the gallbladder wall measuring up to 6 mm may be due to liver cirrhosis. Further evaluation by MRCP/MRI of the liver would be helpful. Varicose veins are seen in the smith hepatis may be due to portal hypertension. Electronically Signed: Mayra Madrid MD at 3:52 EST , Brain MRI 04/24/22 16:04 IMPRESSION: 1. No evidence of acute intracranial bleed, mass or ischemia. 2. Right maxillary sinus opacification concerning for underlying chronic sinusitis. 3. Mild left and minimal right mastoid air cell effusion, clinically correlate for congestive/inflammatory process. Electronically Signed: Jacob Feng DO at 18:56 EST , Rhythm Strip Rhythm Strip: Sinus Rhythm Rate: 89 Physical Exam Narrative General: Alert, no apparent distress HEENT: Atraumatic, PERRLA, EOMI, Normocephalic Oral: Moist Mucosa Neck: Supple, No JVD Lungs: Diminished, Normal air movement, No rhonchi, No wheeze, No rales Cardiovascular: Regular rate, Regular Rhythm, Normal S1, Normal S2, No murmurs Abdomen: Soft, Non Tender, Non-Distended, No Hepato-splenomegaly Extremities: No edema, Capillary Refill Less than 3 Seconds Skin: No rashes, No breakdown Musculoskeletal: No Tenderness to Palpation of Joints or Extremities Neurological: Moves all extremities Psych/Mental Status: Flat affect Assessment & Plan Assessment/Plan (1) Encephalopathy: PLAN: Previous, patient was rather high functioning despite developmental delay. Patient was working and able to drive. The patient's brother states that he had slurred speech but that was attributable to his hearing which may have improved after getting hearing aids. Etiology I suspect is metabolic possibility of dehydration when we will give him fluids. Though given the degree of his confusion compared to what is described as his baseline, I cannot rule out the possibility of him being postictal and having had a seizure. We will check an MRI of the brain and EEG. I am also concerned that the patient may have other disease processes going on. The brother seems that the slurred speech was solely due to his hearing difficulties. Saying that the patient was having a heavy tongue. I did tell the brother that that is atypical for hearing loss and people may speak in monotone or loudly but slurred speech is not typically seen. Patient does use a walker. I am concerned about some other neurodegenerative process that may be complicating this such as Parkinson's versus PSP versus MSA. We will check an MRI to rule out a stroke which I doubt. Patient has no meningismus and therefore will not be proceeding with lumbar puncture at this time. Patient will also be n.p.o. as he clearly cannot swallow safely on his own at this time. Consult physical, occupational and speech therapy. Cannot rule out the possibility the patient may require PEG tube placement in the future. No evidence of UTI at this time. (2) PRISCILLA (acute kidney injury): PLAN: On chronic kidney disease 3B IV fluids (3) Kidney transplant recipient: PLAN: Creatinine has gotten worse. May be related with dehydration but cannot rule out kidney rejection. Consult nephrology Check tacrolimus level Continue with mycophenolate and tacrolimus for now. (4) Metabolic acidosis: PLAN: Secondary to his kidney failure. Patient takes bicarbonate tablets at home. Patient is currently NPO. Will place him on a bicarbonate drip. (5) Severe protein-calorie malnutrition: PLAN: Patient has not been eating for some time according the patient's mother. Consult nutrition for further recommendations. Currently patient is n.p.o. Ideally would like to advance his diet orally if he can be passed by speech therapy. If he cannot, then we will need to consider alternate means of nutrition including PEG tube or TPN. (6) Transaminitis: PLAN: Unclear significance. Follow-up labs in the a.m. Check right upper quadrant ultrasound PLAN: Plan 1. Acute metabolic encephalopathy secondary to likely dehydration as evidenced by an PRISCILLA on CKD 3B/kidney transplant recipient/metabolic acidosis ? We will continue with IV fluids and consult nephrology ? Continue with the bicarb drip per nephrology appreciate their assistance ? Awaiting EEG result, he does have a patchy right lower infiltrate on chest x- ray which is likely due to aspiration, CT scan of his brain is unremarkable as is his MRI ? He seems much more alert compared to the report from yesterday so I would assume his encephalopathy is slowly improving ? We will continue with his antirejection medications 2. Transaminitis ? Abdominal ultrasound shows abnormal echogenic liver but states that gallbladder wall is 6 mm and could be due to cirrhosis he does not have a history of cirrhosis however his ammonia was elevated on admission to 131. His LFTs are improving and we will recheck his ammonia in the morning he was recently admitted for diarrhea due to norovirus 3. Chronic anemia with chronic neutropenia with a congenital nystagmus/severe protein calorie malnutrition ? Current he lives at his assisted living, will have nutrition follow ? We will continue with his home medications, hold his Norvasc secondary to some lower blood pressures 4. He does have 1 blood culture positive for gram-positive cocci this is likely contaminant, will await further culture data. DVT: Heparin Charges/Coding Visit Charges Inpatient E&M: 35832 Subs Hosp L2
[2022-04-25] MEDS: Sodium Bicarbonate 650 MG Tablet 1300 MG PO ×2 (14:57→21:40)
[2022-04-25] MEDS: 0.9% Saline Lock 10 ML Syringe IV (21:38)
[2022-04-26] VITALS (9 sets, daily range): BP systolic 85–138; BP diastolic 50–98; PULSE 59–83; RESP 12–20; TEMP 36.3–36.7; O2SAT 95–100
[2022-04-26] MEDS: 0.9% Normal Saline 1,000 ML 150 ML IV ×2 (04:20→08:57)
[2022-04-26] MEDS: 0.9% Normal Saline 1,000 ML 999 ML IV (04:44)
[2022-04-26 05:06] LABS: Absolute Lymphocyte Count 0.59 X10^3/uL (0.83-4.51); Absolute Neutrophil Count 0.8 X10^3/uL (2.0-7.7); Basophil# 0.03 X10^3/uL; Basophil% 1.5 % (0-1); Eosinophils% 10.2 % (0-5); Hematocrit 23.7 % (40-54); Hemoglobin 7.3 g/dL (13.0-16.5); Lymphocyte # 0.59 X10^3/ul (0.83-4.51); Lymphocyte % 30.1 % (19-41); Mean Corp Hgb Conc 30.8 g/dL (32-36); Mean Corpuscular Volume 97.5 fL (80-94); Mean Platelet Vol. 10.7 fl (6.2-12.0); Monocyte# 0.37 X10^3/uL; Monocyte% 18.9 % (0-10); NRBC Flagged by Analyzer 0 % (0-5); Neutrophil # 0.76 X10^3/uL (2.7-7.7); Neutrophil % 38.8 % (47-70); POSITIVE DIFFERENTIAL YES; Platelet Count 119 K/mm3 (150-450); RBC Distribution Width CV 14.5 % (11.6-14.6); RBC Distribution Width SD 50.8 fl (35.1-43.9); Red Blood Count 2.43 M/mm3 (4.6-6.2)
[2022-04-26 05:34] LABS: Differential Indicated SCAN CRITERIA MET
[2022-04-26 05:44] LABS: ALB/GLOB Ratio 0.8 RATIO (0.9-2.4); AST(SGOT) 43 U/L (15-37); Alanine Aminotransfer ALT/SGPT 35 U/L (16-61); Albumin, Serum 1.9 g/dL (3.2-5.0); Alkaline Phosphatase 106 U/L (45-117); Anion Gap 8 (5-15); BUN 54 mg/dL (7-18); BUN/Creat Ratio 16.9 RATIO (10-20); Calcium,Total 7.3 mg/dL (8.5-10.1); Chloride 123 mmol/L (98-107); Creatinine, Serum 3.19 mg/dL (0.70-1.30); EST Glomerular Filtration Rate 22 mL/min (>60); Est Glom Filt Rate - Afr Amer 26 mL/min (>60); Estimated Creatinine Clearance 22.93 ml/min; Globulin 2.3 g/dL (2.2-4.2); Glucose 82 mg/dL (74-106); Potassium 4.5 mmol/L (3.5-5.1); Protein, Total 4.2 g/dL (6.4-8.2); Sodium Level 148 mmol/L (136-145)
[2022-04-26] MEDS: Sodium Bicarbonate 650 MG Tablet 1300 MG PO ×3 (06:17→22:03)
[2022-04-26 06:36] LABS: Acanthocytes RARE; Burr Cells 2+; Macrocytosis RARE; Platelet Estimate SLT DEC (ADEQ)
[2022-04-26] MEDS: Heparin Injection (Vial) 5,000 UNIT/ML VIAL 5000 UNIT SC ×2 (08:26→22:03)
[2022-04-26] MEDS: Mycophenolate Mofetil 250 MG Capsule 500 MG PO ×2 (08:27→22:02)
[2022-04-26] MEDS: Tacrolimus 0.5 MG Capsule PO ×2 (08:27→22:03)
[2022-04-26] MEDS: Tacrolimus Anhydrous 1 MG Capsule PO ×2 (08:28→22:03)
--- NOTE | 2022-04-26 11:05 | PCM.PN.HOSP ---
Subjective Subjective No issues overnight, communication is difficult but he does seem to be more alert today Objective Data Objective Data Vital Signs: Vital Signs Temp Pulse Resp BP Pulse Ox O2 Del Method 98.1 F 65 16 138/98 H 95 Room Air 04/26/22 08:55 04/26/22 08:55 04/26/22 08:55 04/26/22 08:55 04/26/22 08:55 04/26/22 09:58 Oxygen Delivery Method Room Air Weight: 135 lb Body Mass Index (BMI) 17.9 Intake & Output: Intake and Output for Last 24 Hours 04/25/22 04/26/22 04/27/22 03:59 03:59 03:59 Intake Total 582.5 / 582.5 3830.0 / 3830.0 2460.0 / 2460.0 Output Total 325 / 325 1250 / 1250 425 / 425 Balance 257.5 / 257.5 2580.0 / 2580.0 2035.0 / 2035.0 Lab / Micro Data Result Diagrams: 04/26/22 04:55 04/26/22 04:55 Labs: Laboratory Results - last 24 hr 04/26/22 04:55: WBC 2.0 L, RBC 2.43 L, Hgb 7.3 L, Hct 23.7 L, MCV 97.5 H, MCH 30.0, MCHC 30.8 L D, RDW Std Deviation 50.8 H, RDW Coeff of Anil 14.5, Plt Count 119 L, MPV 10.7, Immature Gran % (Auto) 0.500, Neut % (Auto) 38.8 L, Lymph % (Auto) 30.1, [place] % (Auto) 18.9 H, Eos % (Auto) 10.2 H, Baso % (Auto) 1.5 H, Absolute Neuts (auto) 0.8 L, Absolute Lymphs (auto) 0.59 L, Nucleated RBC % 0, Diff Path Review May foll, Platelet Estimate SLT DEC, Macrocytosis RARE, [place] Cells 2+, Acanthocytes (Spur) RARE 04/26/22 04:55: Sodium 148 H, Potassium 4.5, Chloride 123 H, Carbon Dioxide 17.0 L, Anion Gap 8, BUN 54 H, Creatinine 3.19 H, Estim Creat Clear Calc 22.93, Est GFR (MDRD) Af Amer 26 L, Est GFR (MDRD) Non-Af 22 L, BUN/Creatinine Ratio 16.9, Glucose 82, Calcium 7.3 L, Total Bilirubin 0.70, AST 43 H, ALT 35, Alkaline Phosphatase 106, Total Protein 4.2 L, Albumin 1.9 L, Globulin 2.3, Albumin/Globulin Ratio 0.8 L 04/26/22 04:55: Ammonia 102.0 H Micro: Microbiology 04/24/22 14:02 Blood Culture (Wb) - Left Wrist Blood Culture - Preliminary Rhythm Strip Rhythm Strip: Sinus Rhythm Rate: 89 Physical Exam Narrative General: Alert, no apparent distress HEENT: Atraumatic, PERRLA, EOMI, Normocephalic Oral: Moist Mucosa Neck: Supple, No JVD Lungs: Diminished, Normal air movement, No rhonchi, No wheeze, No rales Cardiovascular: Regular rate, Regular Rhythm, Normal S1, Normal S2, No murmurs Abdomen: Soft, Non Tender, Non-Distended, No Hepato-splenomegaly Extremities: No edema, Capillary Refill Less than 3 Seconds Skin: No rashes, No breakdown Musculoskeletal: No Tenderness to Palpation of Joints or Extremities Neurological: Moves all extremities Psych/Mental Status: Flat affect Assessment & Plan Assessment/Plan (1) Encephalopathy: (2) PRISCILLA (acute kidney injury): (3) Kidney transplant recipient: (4) Metabolic acidosis: (5) Severe protein-calorie malnutrition: (6) Transaminitis: PLAN: Plan 1. Acute metabolic encephalopathy secondary to likely dehydration as evidenced by an PRISCILLA on CKD 3B/kidney transplant recipient/metabolic acidosis ? We will continue with IV fluids and consult nephrology, his sodium is rising so we will transition him to the D5W ? Continue with the bicarb drip per nephrology appreciate their assistance ?EEG demonstrates a global slowing consistent with his congenital issues, he does have a patchy right lower infiltrate on chest x-ray which is likely due to aspiration, CT scan of his brain is unremarkable as is his MRI ? He seems much more alert compared to the report from yesterday so I would assume his encephalopathy is slowly improving ? We will continue with his antirejection medications 2. Transaminitis ? Abdominal ultrasound shows abnormal echogenic liver but states that gallbladder wall is 6 mm and could be due to cirrhosis he does not have a history of cirrhosis however his ammonia was elevated on admission to 131. His LFTs are improving and we will recheck his ammonia in the morning he was recently admitted for diarrhea due to norovirus ? His ammonia is in proving without any major intervention 3. Chronic anemia with chronic neutropenia with a congenital nystagmus/severe protein calorie malnutrition ? Current he lives at his assisted living, will have nutrition follow ? We will continue with his home medications, hold his Norvasc secondary to some lower blood pressures 4. He does have 1 blood culture positive for gram-positive cocci this is likely contaminant, will await further culture data. DVT: Heparin Charges/Coding Visit Charges Inpatient E&M: 72320 Subs Hosp L2
[2022-04-26] MEDS: Ondansetron 4 MG/2 ML Vial IV (22:17)
[2022-04-27] VITALS (10 sets, daily range): BP systolic 93–102; BP diastolic 59–71; PULSE 61–79; RESP 16–18; TEMP 36.2–36.7; O2SAT 95–100
[2022-04-27] MEDS: Sodium Bicarbonate 650 MG Tablet 1300 MG PO ×3 (06:23→22:02)
[2022-04-27 07:26] LABS: Absolute Lymphocyte Count 0.62 X10^3/uL (0.83-4.51); Absolute Neutrophil Count 1.2 X10^3/uL (2.0-7.7); Basophil# 0.03 X10^3/uL; Basophil% 1.3 % (0-1); Eosinophil# 0.21 X10^3/uL; Eosinophils% 9.1 % (0-5); Hematocrit 22.9 % (40-54); Hemoglobin 7.4 g/dL (13.0-16.5); Lymphocyte # 0.62 X10^3/ul (0.83-4.51); Lymphocyte % 26.8 % (19-41); Mean Corp Hgb Conc 32.3 g/dL (32-36); Mean Corpuscular Hgb 30.8 pg (27.0-32.0); Mean Corpuscular Volume 95.4 fL (80-94); Mean Platelet Vol. 11.2 fl (6.2-12.0); Monocyte# 0.29 X10^3/uL; Monocyte% 12.6 % (0-10); NRBC Flagged by Analyzer 0 % (0-5); Neutrophil # 1.16 X10^3/uL (2.7-7.7); Neutrophil % 50.2 % (47-70); Platelet Count 115 K/mm3 (150-450); RBC Distribution Width CV 13.9 % (11.6-14.6); RBC Distribution Width SD 48.7 fl (35.1-43.9); White Blood Count 2.3 K/mm3 (4.4-11.0)
[2022-04-27 07:56] LABS: Anion Gap 10 (5-15); BUN 46 mg/dL (7-18); BUN/Creat Ratio 16.8 RATIO (10-20); Calcium,Total 7.2 mg/dL (8.5-10.1); Chloride 116 mmol/L (98-107); Creatinine, Serum 2.74 mg/dL (0.70-1.30); EST Glomerular Filtration Rate 26 mL/min (>60); Est Glom Filt Rate - Afr Amer 31 mL/min (>60); Estimated Creatinine Clearance 26.69 ml/min; Glucose 102 mg/dL (74-106); Potassium 4.5 mmol/L (3.5-5.1); Sodium Level 142 mmol/L (136-145)
--- NOTE | 2022-04-27 08:20 | MRI_ITS ---
STUDY: MR CHOLANGIOPANCREATOGRAPHY (MRCP) REASON FOR EXAM: Male, 56 years old. gallbadder abn on US, hx kidney tranplant TECHNIQUE: Standard MRCP technique was utilized. Three-dimensional reconstruction images of the biliary tree performed and reviewed. COMPARISON: CT 07/16/2017 FINDINGS: Gall Bladder: Diffuse wall thickening of the gallbladder without significant pericholecystic fluid. No demonstrable gallstones. Cystic duct: Cystic duct was not well visualized. Intrahepatic ducts: Normal visualized intrahepatic ducts with no demonstrated fixed filling defect, dilation or stricture. Common hepatic duct: Normal with no demonstrated fixed filling defect, dilation or stricture. Common bile duct: Normal with no demonstrated fixed filling defect, dilation or stricture. Pancreatic duct: Normal with no demonstrated fixed filling defect, dilation or stricture. Small bilateral pleural effusions. Heart is mildly enlarged. Upper abdominal ascites demonstrated. Severe bilateral renal atrophy with renal cysts have not changed significantly since 2018. MRI/MRCP Abdomen without Contrast IMPRESSION: 1. No biliary obstruction. 2. Diffuse gallbladder wall thickening can be related to hypoalbuminemia, underlying hepatic dysfunction among other etiologies. 3. Small bilateral pleural effusions and abdominal ascites. Electronically Signed: Contreras Nolasco (Brooks), at 14:16 EST ,
[2022-04-27] MEDS: Mycophenolate Mofetil 250 MG Capsule 500 MG PO ×2 (08:25→22:02)
[2022-04-27] MEDS: Heparin Injection (Vial) 5,000 UNIT/ML VIAL 5000 UNIT SC ×2 (08:26→22:03)
[2022-04-27] MEDS: Tacrolimus Anhydrous 1 MG Capsule PO (08:26)
[2022-04-27 09:20] LABS: International Normalized Ratio 1.2; Prothrombin Time (Protime)PT. 15.2 SECONDS (11.7-14.9)
[2022-04-27] MEDS: Lactulose 20 GM/30 ML UDC PO ×2 (10:08→22:03)
--- NOTE | 2022-04-27 11:26 | CON.PCM.GI_ITS ---
HPI Consult Data Date of Consult: 04/27/22 HPI Narrative Reason for Consultation: Hyperammonemia HPI Narrative: ROOSEVELT GARCIA, is a 56 M who presented with lethargy. He has a history of chronic kidney disease status post renal transplant.? Patient was just discharged on the with norovirus as well as UTI.? Patient completed antibiotics during his hospitalization.? Patient, with his debility, was discharged to senior care facility.? Since being there, the patient has become just more lethargic and unresponsive.? After coming back to the hospital he was discovered to have severe hyperammonemia, metabolic acidosis and acute kidney injury. His liver enzymes are mildly elevated. He had an ultrasound of his liver and a previous CT scan that did not show any signs of cirrhosis. I was consulted to see him for hyperammonemia and possible liver disease. [facility] Medical History Anemia Bronchitis CKD (chronic kidney disease), stage III Congenital nystagmus DVT (deep venous thrombosis) HTN (hypertension) Mild intellectual disability Neurogenic bladder disorder Pancytopenia Pulmonary embolism Urinary retention Vocal cord dysfunction Home Medications mycophenolate mofetil 500 mg tablet 500 mg PO 0900,2100 Anti-Rejection 07/14/16 [History Last Taken 02/13/22] amlodipine 5 mg tablet 5 mg PO QHS BLOOD PRESSURE 09/29/17 [History Last Taken 02/12/22] tacrolimus 1 mg capsule, immediate-release 1 mg PO 0900,2100 ANTI-REJECTION 01/11/18 [History Last Taken 02/13/22] multivitamin 1 tab PO QHS supplement 02/13/22 [History Last Taken 02/12/22] tacrolimus 0.5 mg capsule, immediate-release 0.5 mg PO 0900,2100 anti rejection 02/13/22 [History Last Taken 02/13/22] acetaminophen 325 mg tablet (Tylenol) 650 mg PO Q6H PRN PRN Pain 1-10 Or Fever>100.7 #0 tabs 04/21/22 [Rx Last Taken Unknown] sodium bicarbonate 650 mg tablet 1,300 mg PO TID #6 tabs 04/21/22 [Rx Last Taken Unknown] Allergy/AdvReac Type Severity Reaction Status Date / Time anything red AdvReac Hives Uncoded 04/24/22 12:49 Family History Mother Hypertension Father Diabetes Surgical History Kidney transplant recipient Renal transplant, status post S/P arteriovenous (AV) fistula creation Social History household members: none housing: assisted Smoking Status: Never smoker second hand exposure: No alcohol intake: never substance use type: does not use caffeine: No ROS Review of Systems ROS Unobtainable: due to encephalopathy, due to mental condition and due to mental status Physical Exam Narrative General: Alert, no apparent distress HEENT: Atraumatic, PERRLA, EOMI, Normocephalic Oral: Moist Mucosa Neck: Supple, No JVD Lungs: Diminished, Normal air movement, No rhonchi, No wheeze, No rales Cardiovascular: Regular rate, Regular Rhythm, Normal S1, Normal S2, No murmurs Abdomen: Soft, Non Tender, Non-Distended, No Hepato-splenomegaly Extremities: No edema, Capillary Refill Less than 3 Seconds Skin: No rashes, No breakdown Musculoskeletal: No Tenderness to Palpation of Joints or Extremities Neurological: Moves all extremities Psych/Mental Status: Flat affect Lab / Micro Data Result Diagrams: 04/27/22 07:07 04/27/22 07:07 Labs: Laboratory Results - last 24 hr 04/27/22 07:07: WBC 2.3 L, RBC 2.40 L, Hgb 7.4 L, Hct 22.9 L, MCV 95.4 H, MCH 30.8, MCHC 32.3, RDW Std Deviation 48.7 H, RDW Coeff of Anil 13.9, Plt Count 115 L, MPV 11.2, Immature Gran % (Auto) 0.000, Neut % (Auto) 50.2, Lymph % (Auto) 26.8, [place] % (Auto) 12.6 H, Eos % (Auto) 9.1 H, Baso % (Auto) 1.3 H, Absolute Neuts (auto) 1.2 L, Absolute Lymphs (auto) 0.62 L, Nucleated RBC % 0 04/27/22 07:07: Sodium 142, Potassium 4.5, Chloride 116 H, Carbon Dioxide 16.0 L , Anion Gap 10, BUN 46 H, Creatinine 2.74 H, Estim Creat Clear Calc 26.69, Est GFR (MDRD) Af Amer 31 L, Est GFR (MDRD) Non-Af 26 L, BUN/Creatinine Ratio 16.8, Glucose 102, Calcium 7.2 L 04/27/22 08:55: PT 15.2 H, INR 1.2 Micro: Microbiology 04/24/22 13:00 Blood Culture (Wb) - Arm Left Blood Culture - Preliminary 04/24/22 14:02 Blood Culture (Wb) - Left Wrist Blood Culture - Preliminary Coag Negative Staph Rhythm Strip Rhythm Strip: Sinus Rhythm Rate: 89 Assessment & Plan Assessment/Plan (1) Encephalopathy: PLAN: Ammonia is a known neurotoxin commonly implicated in development of h epatic encephalopathy. Also it is a clinical marker of decompensated cirrhosis and can be up off with neurotoxin. In a healthy individual with functioning hepatocytes, ammonia enters the portal circulation from the gastrointestinal tract and is subsequently converted to u danita through the urea cycle. Urea is then excreted physiologically via the colon or kidneys. In this gentleman he has a poor excretion of ammonia from his transplanted kidney. Therefore the burden to excrete ammonia falls on the skeletal muscle, brain and GI tract. Is a very high serum ammonia levels alone add no diagnostic, staging, or prognostic value to patients with chronic liver disease who experience HE. ?Alternately, in the case of otherwise unexplained encephalopathy in a patient without a known diagnosis of cirrhosis, an elevated serum ammonia level should prompt evaluation for causes of noncirrhotic hyperammonemic encephalopathy. I suspect that his severe protein calorie malnutrition has led to his propensity to have hyperammonemia due to skeletal muscle loss. Also with his severe metabolic acidosis you get more conversion of the ammonia ion to his water- soluble form that can cross the blood-brain barrier. To date I cannot find any cases of antirejection medicines leading to hyperammonemia like chemotherapy agents. He should be checked for multiple myeloma as that can cause hyperammonemia. A CPK should be checked and TSH. I would caution the use of carbamazepine unless he develops seizure activity or seizure activity seen on EEG as it can worsen hyperammonemia. I will put him on lactulose 30 cc every 4 hours until ammonia level is down less than 30 with administration of Xifaxan 550 mg twice a day and metronidazole 500 mg 3 times a day for bowel sterilization. I would also consult nutrition as he would need to be started on 1.5 or 2 mg/kg of protein. (2) Transaminitis: PLAN: I think his transaminitis was secondary to poor renal clearance as liver enzymes primarily only clear through the kidney. Also, there could have been slight ischemia. His liver enzymes are improving. I do not see any signs of chronic liver disease on imaging. His low platelet count could indicate that there was some hepatic dysfunction. He will need a FibroScan or liver biopsy along with hematologic work-up for ITP. Thrombocytopenia in this case is likely secondary to metabolic acidosis in the setting of sepsis. Charges/Coding Visit Charges Inpatient E&M: 81228 Init Hosp L3
--- NOTE | 2022-04-27 13:27 | NURSING ---
pt to mri
--- NOTE | 2022-04-27 15:20 | PN.HOSP_ITS ---
Subjective Subjective Mentation seems to be clearer. Abdominal ultrasound reviewed and abnormalities noted. MRCP was ordered. Ammonia level was markedly elevated and I suspect this is the etiology for his confusion. We will start lactulose and have GI see him however I am not convinced that there is a liver pathology that is causing this. Objective Data Objective Data Vital Signs: Vital Signs Temp Pulse Resp BP Pulse Ox O2 Del Method 97.6 F L 68 18 102/70 100 Room Air 04/27/22 14:59 04/27/22 14:59 04/27/22 14:59 04/27/22 14:59 04/27/22 14:59 04/27/22 14:59 Oxygen Delivery Method Room Air Weight: 61.235 kg Body Mass Index (BMI) 17.9 Intake & Output: Intake and Output for Last 24 Hours 04/25/22 04/26/22 04/27/22 23:59 23:59 23:59 Intake Total 3830.0 / 3830.0 4875.0 / 4875.0 1763.33 / 1763.33 Output Total 1250 / 1250 1974 / 1974 800 / 800 Balance 2580.0 / 2580.0 2900.0 / 2900.0 963.33 / 963.33 Lab / Micro Data Result Diagrams: 04/27/22 07:07 04/27/22 07:07 Labs: Laboratory Results - last 24 hr 04/27/22 07:07: WBC 2.3 L, RBC 2.40 L, Hgb 7.4 L, Hct 22.9 L, MCV 95.4 H, MCH 30.8, MCHC 32.3, RDW Std Deviation 48.7 H, RDW Coeff of Anil 13.9, Plt Count 115 L, MPV 11.2, Immature Gran % (Auto) 0.000, Neut % (Auto) 50.2, Lymph % (Auto) 26.8, [place] % (Auto) 12.6 H, Eos % (Auto) 9.1 H, Baso % (Auto) 1.3 H, Absolute Neuts (auto) 1.2 L, Absolute Lymphs (auto) 0.62 L, Nucleated RBC % 0 04/27/22 07:07: Sodium 142, Potassium 4.5, Chloride 116 H, Carbon Dioxide 16.0 L , Anion Gap 10, BUN 46 H, Creatinine 2.74 H, Estim Creat Clear Calc 26.69, Est GFR (MDRD) Af Amer 31 L, Est GFR (MDRD) Non-Af 26 L, BUN/Creatinine Ratio 16.8, Glucose 102, Calcium 7.2 L 04/27/22 08:55: PT 15.2 H, INR 1.2 Micro: Microbiology 04/24/22 14:02 Blood Culture (Wb) - Left Wrist Blood Culture - Preliminary Coag Negative Staph 04/24/22 13:00 Blood Culture (Wb) - Arm Left Blood Culture - Preliminary Coag Negative Staph Radiography Diagnostic Testing: Radiology Impression MRCP 04/27/22 08:20 IMPRESSION: 1. No biliary obstruction. 2. Diffuse gallbladder wall thickening can be related to hypoalbuminemia, underlying hepatic dysfunction among other etiologies. 3. Small bilateral pleural effusions and abdominal ascites. Electronically Signed: Contreras RivkaCourtney Nolasco, at 14:16 EST Reading Location ID and State: [facility] / [place] , Service support , Rhythm Strip Rhythm Strip: Sinus Rhythm Rate: 89 Physical Exam Const alert and oriented x3 Constitutional Narrative: Middle-aged white male with developmental delay, lying in bed, therapy at bedside, patient is alert and oriented at this time, nontoxic-appearing and very pleasant HEENT head/scalp atraumatic and moist oral mucous membranes HEENT Narrative: Marked hearing loss, dentition is fair Head and Scalp: normocephalic Eyes Eyes Narrative: Chronic nystagmus noted Resp normal respiratory effort, no retractions, no use of accessory muscles and clear to auscultation bilaterally Auscultation: Negative for crackles, rhonchi or wheezes Cardio regular rate, regular rhythm, S1 normal heart sound, S2 normal heart sound, no m urmurs, no rub, no gallops and no clicks GI normal to inspection, nondistended, normoactive bowel sounds, soft to palpation, non-tender and non-distended Extremity no clubbing, cyanosis or edema Extremity Narrative: 2+ pedal pulses, decreased lean muscle mass Neuro oriented x3, CN's II-XII intact bilaterally, moves all extremities and no focal motor deficits Neuro Narrative: Speech is slow and deliberate however intelligible and on task without any tangents Speech: Negative for speech normal Psych affect normal Assessment & Plan Assessment/Plan (1) Transaminitis: (2) Severe protein-calorie malnutrition: (3) Metabolic acidosis: (4) Encephalopathy: (5) Hyperammonemia: PLAN: Plan Toxic/metabolic encephalopathy -Ammonia found to be elevated -LFTs are overall unremarkable -Coags are normal -Lactulose initiated -GI consult pending -Appears to be improving as he is alert and was alert and oriented x3 at the time of my evaluation -MRI negative -EEG unremarkable for any signs of acute abnormality or epileptiform activity Transaminitis -Trending down -Abnormalities noted on gallbladder -MRCP ordered and pending per recommendation on ultrasound by radiology -check INR PRISCILLA on CKD stage IIIb -Previous kidney transplant with chronic allograft dysfunction -Baseline serum creatinine is 2 -Current serum creatinine down to 2.75 -Hydration with D5W today and reevaluate with likely discontinuation tomorrow and monitor off IV fluids for stabilization -Patient remains on sodium bicarb drip with improving acidosis -Hold tacrolimus as level from last hospitalization was greater than 28 -Nephrology notified -Continue oral bicarb per discussion with nephrology -Repeat BMP in a.m. -Per discussion with nephrology okay for discharge once placement can be secured and will have outpatient follow-up in 1 week Non-anion gap metabolic acidosis -Related PRISCILLA -Continue bicarb drip per nephrology Severe Malnutrition -supplements -Patient Registration Representative consultation History of atonic bladder -Self caths regularly -Likely etiology for urinary tract infection Chronic anemia -Hemoglobin is overall stable -Continue to monitor Hypertension -Hold amlodipine as blood pressures have somewhat been labile -Continue to monitor -will likely discontinue at discharge DVT prophylaxis -Heparin 5000 units 2 times daily CODE STATUS -Full code Charges/Coding Visit Charges Inpatient E&M: 70809 Subs Hosp L2
[2022-04-27] MEDS: Ensure Plus High Protein 120 ML LIQUID PO (17:16)
[2022-04-28] VITALS (11 sets, daily range): BP systolic 89–110; BP diastolic 57–71; PULSE 66–81; RESP 16–18; TEMP 36.5–37.2; O2SAT 96–100
[2022-04-28] MEDS: Sodium Bicarbonate 650 MG Tablet 1300 MG PO ×3 (05:07→21:41)
[2022-04-28 07:03] LABS: Absolute Lymphocyte Count 0.32 X10^3/uL (0.83-4.51); Basophil# 0.02 X10^3/uL; Basophil% 1.1 % (0-1); Eosinophil# 0.14 X10^3/uL; Hematocrit 22.8 % (40-54); Hemoglobin 7.3 g/dL (13.0-16.5); Lymphocyte # 0.32 X10^3/ul (0.83-4.51); Lymphocyte % 18.4 % (19-41); Mean Corpuscular Hgb 29.8 pg (27.0-32.0); Mean Corpuscular Volume 93.1 fL (80-94); Mean Platelet Vol. 10.7 fl (6.2-12.0); Monocyte# 0.28 X10^3/uL; Monocyte% 16.1 % (0-10); NRBC Flagged by Analyzer 0 % (0-5); Neutrophil # 0.97 X10^3/uL (2.7-7.7); Neutrophil % 55.8 % (47-70); POSITIVE DIFFERENTIAL YES; Platelet Count 111 K/mm3 (150-450); RBC Distribution Width CV 13.8 % (11.6-14.6); RBC Distribution Width SD 46.5 fl (35.1-43.9); Red Blood Count 2.45 M/mm3 (4.6-6.2); White Blood Count 1.7 K/mm3 (4.4-11.0)
[2022-04-28 07:26] LABS: Anion Gap 7 (5-15); BUN 40 mg/dL (7-18); BUN/Creat Ratio 15.9 RATIO (10-20); Calcium,Total 7.3 mg/dL (8.5-10.1); Chloride 115 mmol/L (98-107); Creatinine, Serum 2.52 mg/dL (0.70-1.30); EST Glomerular Filtration Rate 28 mL/min (>60); Est Glom Filt Rate - Afr Amer 34 mL/min (>60); Estimated Creatinine Clearance 29.02 ml/min; Glucose 84 mg/dL (74-106); Magnesium 1.5 mg/dL (1.6-2.6); Phosphorus 3.2 mg/dL (2.5-4.9); Potassium 4.4 mmol/L (3.5-5.1); Sodium Level 140 mmol/L (136-145)
[2022-04-28 07:28] LABS: Differential Indicated SCAN CRITERIA MET
[2022-04-28 08:40] LABS: Differential Comment SCANNED
[2022-04-28] MEDS: Heparin Injection (Vial) 5,000 UNIT/ML VIAL 5000 UNIT SC ×2 (09:44→21:39)
[2022-04-28] MEDS: Mycophenolate Mofetil 250 MG Capsule 500 MG PO ×2 (09:45→21:40)
[2022-04-28] MEDS: Ensure Plus High Protein 120 ML LIQUID PO ×3 (09:45→17:24)
[2022-04-28] MEDS: Lactulose 20 GM/30 ML UDC PO ×3 (09:46→21:39)
--- NOTE | 2022-04-28 11:19 | PCM.PN.REN ---
Subjective Subjective Following for PRISCILLA on CKD Patient is resting. No overnight events Objective Data Objective Data Vital Signs: Vital Signs Temp Pulse Resp BP Pulse Ox O2 Del Method 97.7 F L 69 16 95/61 97 Room Air 04/28/22 09:52 04/28/22 09:52 04/28/22 09:52 04/28/22 09:52 04/28/22 09:52 04/28/22 09:52 Oxygen Delivery Method Room Air Weight: 61.235 kg Body Mass Index (BMI) 17.9 Intake & Output: Intake and Output for Last 24 Hours 04/26/22 04/27/22 04/28/22 23:59 23:59 23:59 Intake Total 4875.0 / 4875.0 2400.00 / 2400.00 Output Total 1974 1400 / 1400 550 / 550 Balance 2900.0 / 2900.0 1000.00 / 1000.00 -550 / -550 Medical Nutrition Assessment Dietitian: Malnutrition Criteria Met Start: 04/27/22 16:15 Freq: Status: Active Protocol: Document 04/27/22 16:15 RMA (Rec: 04/27/22 16:16 RMA [id number]) Nutrition Malnutrition Evidence of Malnutrition Exists Yes Malnutrition (severe): Chronic Evidenced By Suboptimal Energy Intake ( Severe),Weight Loss (Severe), Physical Changes (Severe) Clinical Problem Chronic Disease or Condition Related Malnutrition Etiology Severe protein-calorie malnutrition in the context of chronic disease related to inadequate oral intake and difficulty swallowing Signs/Symptoms as evidenced by 12% unintentional wt loss x 2 months, approximately 23% wt loss per family report in unknown timeframe, BMI 17.9, inadequate oral intake meeting less than 50% estimated nutrition needs x past 2-3 months and muscle/fat wasting in the clavicle, face, orbitals, arms and legs Status Active Problem Unintended Weight Loss Etiology related to inadequate oral intake; difficulty swallowing Signs/Symptoms as evidenced by 14.6lbs (11.5% ) weight loss in ~2 months based on estimated current weight of 135lbs Status Active Problem Recommendation Dietitian Recommendations/Changes Regular/no added salt diet with consistency as per STATISTICIAN MATHEMATICAL, currently minced/moist food with thin liquids. Will add ensure pudding TID w/ meals. Will add 120 ml ensure plus high protein 4 times per day w / medpass. Suspect pt will not be able to meet estimated nutrition needs by mouth and would likely benefit from enteral nutrition support if PO remains poor/inadequate and weight continues to decline; consult RD as needed for nutrition support. Lab / Micro Data Result Diagrams: 04/28/22 06:45 04/28/22 06:45 Labs: Laboratory Results - last 24 hr 04/28/22 06:45: Ammonia 108.0 H 04/28/22 06:45: WBC 1.7 L, RBC 2.45 L, Hgb 7.3 L, Hct 22.8 L, MCV 93.1, MCH 29.8, MCHC 32.0, RDW Std Deviation 46.5 H, RDW Coeff of Anil 13.8, Plt Count 111 L, MPV 10.7, Immature Gran % (Auto) 0.600, Neut % (Auto) 55.8, Lymph % (Auto) 18.4 L, [place] % (Auto) 16.1 H, Eos % (Auto) 8.0 H, Baso % (Auto) 1.1 H, Absolute Neuts (auto) 1.0 L, Absolute Lymphs (auto) 0.32 L, Nucleated RBC % 0, Differential Comment SCANNED, Diff Path Review August foll 04/28/22 06:45: Sodium 140, Potassium 4.4, Chloride 115 H, Carbon Dioxide 18.0 L, Anion Gap 7, BUN 40 H, Creatinine 2.52 H, Estim Creat Clear Calc 29.02, Est GFR (MDRD) Af Amer 34 L, Est GFR (MDRD) Non-Af 28 L, BUN/Creatinine Ratio 15.9, Glucose 84, Calcium 7.3 L, Phosphorus 3.2, Magnesium 1.5 L Micro: Microbiology 04/24/22 14:02 Blood Culture (Wb) - Left Wrist Blood Culture - Preliminary Staphylococcus epidermidis 04/24/22 13:00 Blood Culture (Wb) - Arm Left Blood Culture - Preliminary Staphylococcus epidermidis Radiography Diagnostic Testing: Radiology Impression MRCP 04/27/22 08:20 IMPRESSION: 1. No biliary obstruction. 2. Diffuse gallbladder wall thickening can be related to hypoalbuminemia, underlying hepatic dysfunction among other etiologies. 3. Small bilateral pleural effusions and abdominal ascites. Electronically Signed: Contreras Nolasco (Brooks), at 14:16 EST , Rhythm Strip Rhythm Strip: Sinus Rhythm Rate: 89 Physical Exam Narrative Const: Alert, no apparent distress Cardio: S1, S2, RRR Respiratory: Lungs clear Abdomen: Soft, nontender Extremities: No edema Indwelling Ga catheter with clear urine in bag Assessment & Plan Assessment/Plan (1) Acute renal failure superimposed on stage 3a chronic kidney disease: (2) Metabolic acidosis: (3) Hyperammonemia: PLAN: Plan - Nonoliguric, hypovolemic acute kidney injury superimposed on chronic kidney disease stage III. Overall renal function is improving, patient is on IV fluids. 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 - This admission serum creatinine peaked 4.22 mg/dL and has improved to 2.52 mg/dL. Last admission serum creatinine peaked 4.58 mg/dL and improved to 2.96 mg/dL by time of discharge, no acute indication for MEDICAL ADMINISTRATIVE TECHNICIAN - Patient has a history of atonic bladder, self caths regularly but currently has indwelling Ga -Ammonia level 108, started on lactulose, GI consulted. No acute findings with abdominal ultrasound. -Bicarb is improving, he is on oral bicarb. No need for IV bicarb -Patient was on tacrolimus 1.5 mg twice daily, currently on hold. Tac level on 04/16 elevated at 28.6, previous level on 03/03/2022 elevated at 22.0. Patient had tacrolimus level drawn on 04/24 and is pending. Continue mycophenolate 500 mg twice daily. Patient found to have norovirus last hospitalization, and diarrhea has improved, will send CMV/PCR
--- NOTE | 2022-04-28 12:53 | CHAPLAIN ---
Type of Pastoral Visit _x__ Initial Visit ___ Follow-up Visit ___ On-call Visit ___ General Patient Visit ___ Spiritual Assessment ___ Family Conference ___ Bereavement ___ Rapid Response ___ Code Blue ___ Other (describe below) Pastoral Care Referral From ___ Patient _x__ Family ___ Nurse ___ Physician ___ Shooting Gallery Operator ___ Boomswing Operator ___ Other (describe below) Sacrament/Intervention _x__ Active listening ___ Anointing ___ Muslim ___ Bereavement ___ Communion ___ Alma exploration ___ ___ Life review _x__ Prayer ___ Reconciliation ___ Sacrament of Sick _x__ Supportive presence ___ Wedding ___ Other (describe below) Pastoral Comments patient is sitting in chair and watching cartoons; the phone rings as this head up operator enters room; phone answered for patient and it is his mother; phone is put up to ear for patient who says hello but has difficulty hearing; this head up operator talked to mother and gave the patient her message; mother asks for presence and prayer for patient and herself; sat with patient as he talked a bit; pt did not have hearing aids in and he had some difficulty understanding words; offered prayer and pt welcomed it;
[2022-04-28 13:58] LABS: Pathologist Review Reviewed
[2022-04-28 14:07] LABS: Pathologist Review Reviewed
[2022-04-28 14:13] LABS: Pathologist Review Reviewed
--- NOTE | 2022-04-28 15:09 | CASEMGMT ---
Patient was recently discharged to [facility]. Patient will return to [facility] as he is originally from their assisted living. Await therapy notes to sent to [facility] so pre-cert can be initiated. Plan: d/c back to [facility] pending insurance approval. Anna Kirby FIRER [employer] CHRISTINE
[2022-04-28] MEDS: rifAXIMin 550 MG Tablet PO ×2 (15:55→21:42)
[2022-04-28 16:21] LABS: CPK Total, Creatine Kinase 191 U/L (39-308)
--- NOTE | 2022-04-28 16:34 | PCM.PROGNOTE ---
Subjective Subjective Patient wakes up and falls back to sleep. He has not had a bowel movement today. He did have a bowel movement yesterday. Objective Data Objective Data Vital Signs: Vital Signs Temp Pulse Resp BP Pulse Ox O2 Del Method 97.9 F 70 16 92/57 L 100 Room Air 04/28/22 15:50 04/28/22 15:50 04/28/22 15:50 04/28/22 15:50 04/28/22 15:50 04/28/22 15:50 Oxygen Delivery Method Room Air Weight: 135 lb Body Mass Index (BMI) 17.9 Intake & Output: Intake and Output for Last 24 Hours 04/26/22 04/27/22 04/28/22 23:59 23:59 23:59 Intake Total 4875.0 / 4875.0 2400.00 / 2400.00 1344 / 1344 Output Total 1974 / 1974 1400 / 1400 1050 / 1050 Balance 2900.0 / 2900.0 1000.00 / 1000.00 294 / 294 Medical Nutrition Assessment Dietitian: Malnutrition Criteria Met Start: 04/27/22 16:15 Freq: Status: Active Protocol: Document 04/27/22 16:15 RMA (Rec: 04/27/22 16:16 RMA [id number]) Nutrition Malnutrition Evidence of Malnutrition Exists Yes Malnutrition (severe): Chronic Evidenced By Suboptimal Energy Intake ( Severe),Weight Loss (Severe), Physical Changes (Severe) Clinical Problem Chronic Disease or Condition Related Malnutrition Etiology Severe protein-calorie malnutrition in the context of chronic disease related to inadequate oral intake and difficulty swallowing Signs/Symptoms as evidenced by 12% unintentional wt loss x 2 months, approximately 23% wt loss per family report in unknown timeframe, BMI 17.9, inadequate oral intake meeting less than 50% estimated nutrition needs x past 2-3 months and muscle/fat wasting in the clavicle, face, orbitals, arms and legs Status Active Problem Unintended Weight Loss Etiology related to inadequate oral intake; difficulty swallowing Signs/Symptoms as evidenced by 14.6lbs (11.5% ) weight loss in ~2 months based on estimated current weight of 135lbs Status Active Problem Recommendation Dietitian Recommendations/Changes Regular/no added salt diet with consistency as per CONCRETE PUMP OPERATOR HELPER, currently minced/moist food with thin liquids. Will add ensure pudding TID w/ meals. Will add 120 ml ensure plus high protein 4 times per day w / medpass. Suspect pt will not be able to meet estimated nutrition needs by mouth and would likely benefit from enteral nutrition support if PO remains poor/inadequate and weight continues to decline; consult RD as needed for nutrition support. Lab / Micro Data Result Diagrams: 04/28/22 06:45 04/28/22 06:45 Labs: Laboratory Results - last 24 hr 04/25/22 05:30: Diff Path Review Reviewed 04/26/22 04:55: Diff Path Review Reviewed 04/28/22 06:45: Ammonia 108.0 H 04/28/22 06:45: WBC 1.7 L, RBC 2.45 L, Hgb 7.3 L, Hct 22.8 L, MCV 93.1, MCH 29.8, MCHC 32.0, RDW Std Deviation 46.5 H, RDW Coeff of Anil 13.8, Plt Count 111 L, MPV 10.7, Immature Gran % (Auto) 0.600, Neut % (Auto) 55.8, Lymph % (Auto) 18.4 L, [place] % (Auto) 16.1 H, Eos % (Auto) 8.0 H, Baso % (Auto) 1.1 H, Absolute Neuts (auto) 1.0 L, Absolute Lymphs (auto) 0.32 L, Nucleated RBC % 0, Differential Comment SCANNED, Diff Path Review Reviewed 04/28/22 06:45: Sodium 140, Potassium 4.4, Chloride 115 H, Carbon Dioxide 18.0 L, Anion Gap 7, BUN 40 H, Creatinine 2.52 H, Estim Creat Clear Calc 29.02, Est GFR (MDRD) Af Amer 34 L, Est GFR (MDRD) Non-Af 28 L, BUN/Creatinine Ratio 15.9, Glucose 84, Calcium 7.3 L, Phosphorus 3.2, Magnesium 1.5 L 04/28/22 06:45: Total Creatine Kinase 191 Micro: Microbiology 04/24/22 14:02 Blood Culture (Wb) - Left Wrist Blood Culture - Preliminary Staphylococcus epidermidis 04/24/22 13:00 Blood Culture (Wb) - Arm Left Blood Culture - Preliminary Staphylococcus epidermidis Rhythm Strip Rhythm Strip: Sinus Rhythm Rate: 89 Physical Exam Narrative Const: Alert, no apparent distress Cardio: S1, S2, RRR Respiratory: Lungs clear Abdomen: Soft, nontender Extremities: No edema Indwelling Ga catheter with clear urine in bag Assessment & Plan Assessment/Plan (1) Hyperammonemia: PLAN: His ammonia level is back up at 103. He has not had any bowel movements. I suspect his hyperammonemia is multifactorial secondary to protein calorie malnutrition. I will check a CPK and LDH along with a protein electrophoresis and immunofixation. I will also start him on Xifaxan 550 mg twice a day and increase his lactulose to 20 mL every 4 hours. (2) Encephalopathy: PLAN: Encephalopathy likely multifactorial secondary to recent infection, acute renal failure and elevated ammonia level. Charges/Coding Visit Charges Inpatient E&M: 50284 Subs Hosp L2
--- NOTE | 2022-04-28 16:53 | PCM.PN.HOSP ---
Subjective Subjective Sleeping this morning. Did not have breakfast as he was sleeping. Discussed with nursing staff and they will feed him soon. Still no significant bowel movements. Objective Data Objective Data Vital Signs: Vital Signs Temp Pulse Resp BP Pulse Ox O2 Del Method 97.9 F 70 16 92/57 L 100 Room Air 04/28/22 15:50 04/28/22 15:50 04/28/22 15:50 04/28/22 15:50 04/28/22 15:50 04/28/22 15:50 Oxygen Delivery Method Room Air Weight: 61.235 kg Body Mass Index (BMI) 17.9 Intake & Output: Intake and Output for Last 24 Hours 04/26/22 04/27/22 04/28/22 23:59 23:59 23:59 Intake Total 4875.0 / 4875.0 2400.00 / 2400.00 1344 / 1344 Output Total 1974 1400 / 1400 1050 / 1050 Balance 2900.0 / 2900.0 1000.00 / 1000.00 294 / 294 Medical Nutrition Assessment Dietitian: Malnutrition Criteria Met Start: 04/27/22 16:15 Freq: Status: Active Protocol: Document 04/27/22 16:15 RMA (Rec: 04/27/22 16:16 RMA [id number]) Nutrition Malnutrition Evidence of Malnutrition Exists Yes Malnutrition (severe): Chronic Evidenced By Suboptimal Energy Intake ( Severe),Weight Loss (Severe), Physical Changes (Severe) Clinical Problem Chronic Disease or Condition Related Malnutrition Etiology Severe protein-calorie malnutrition in the context of chronic disease related to inadequate oral intake and difficulty swallowing Signs/Symptoms as evidenced by 12% unintentional wt loss x 2 months, approximately 23% wt loss per family report in unknown timeframe, BMI 17.9, inadequate oral intake meeting less than 50% estimated nutrition needs x past 2-3 months and muscle/fat wasting in the clavicle, face, orbitals, arms and legs Status Active Problem Unintended Weight Loss Etiology related to inadequate oral intake; difficulty swallowing Signs/Symptoms as evidenced by 14.6lbs (11.5% ) weight loss in ~2 months based on estimated current weight of 135lbs Status Active Problem Recommendation Dietitian Recommendations/Changes Regular/no added salt diet with consistency as per TROLLEY WIRE INSTALLER, currently minced/moist food with thin liquids. Will add ensure pudding TID w/ meals. Will add 120 ml ensure plus high protein 4 times per day w / medpass. Suspect pt will not be able to meet estimated nutrition needs by mouth and would likely benefit from enteral nutrition support if PO remains poor/inadequate and weight continues to decline; consult RD as needed for nutrition support. Lab / Micro Data Result Diagrams: 04/28/22 06:45 04/28/22 06:45 Labs: Laboratory Results - last 24 hr 04/25/22 05:30: Diff Path Review Reviewed 04/26/22 04:55: Diff Path Review Reviewed 04/28/22 06:45: Ammonia 108.0 H 04/28/22 06:45: WBC 1.7 L, RBC 2.45 L, Hgb 7.3 L, Hct 22.8 L, MCV 93.1, MCH 29.8, MCHC 32.0, RDW Std Deviation 46.5 H, RDW Coeff of Anil 13.8, Plt Count 111 L, MPV 10.7, Immature Gran % (Auto) 0.600, Neut % (Auto) 55.8, Lymph % (Auto) 18.4 L, [place] % (Auto) 16.1 H, Eos % (Auto) 8.0 H, Baso % (Auto) 1.1 H, Absolute Neuts (auto) 1.0 L, Absolute Lymphs (auto) 0.32 L, Nucleated RBC % 0, Differential Comment SCANNED, Diff Path Review Reviewed 04/28/22 06:45: Sodium 140, Potassium 4.4, Chloride 115 H, Carbon Dioxide 18.0 L, Anion Gap 7, BUN 40 H, Creatinine 2.52 H, Estim Creat Clear Calc 29.02, Est GFR (MDRD) Af Amer 34 L, Est GFR (MDRD) Non-Af 28 L, BUN/Creatinine Ratio 15.9, Glucose 84, Calcium 7.3 L, Phosphorus 3.2, Magnesium 1.5 L 04/28/22 06:45: Total Creatine Kinase 191 Micro: Microbiology 04/24/22 14:02 Blood Culture (Wb) - Left Wrist Blood Culture - Preliminary Staphylococcus epidermidis 04/24/22 13:00 Blood Culture (Wb) - Arm Left Blood Culture - Preliminary Staphylococcus epidermidis Rhythm Strip Rhythm Strip: Sinus Rhythm Rate: 89 Physical Exam Const no apparent distress Constitutional Narrative: Thin, middle-aged white male with developmental delay, lying in bed sleeping, awakens to tactile stimuli and loud verbal stimuli, seems sleepy today HEENT head/scalp atraumatic and moist oral mucous membranes Eyes EOMs intact bilaterally Eyes Narrative: Chronic nystagmus noted Resp normal respiratory effort, no retractions, no use of accessory muscles and clear to auscultation bilaterally Auscultation: Negative for crackles, rhonchi or wheezes Cardio regular rate, regular rhythm, S1 normal heart sound, S2 normal heart sound, no murmurs, no rub, no gallops and no clicks GI normal to inspection, nondistended, normoactive bowel sounds, soft to palpation and non-tender Extremity no clubbing, cyanosis or edema Extremity Narrative: 2+ pedal pulses, decreased lean muscle mass Neuro moves all extremities and no focal motor deficits Neuro Narrative: Speech is slow and deliberate Psych Psych Narrative: Affect is flat Assessment & Plan Assessment/Plan (1) Transaminitis: (2) Severe protein-calorie malnutrition: (3) Metabolic acidosis: (4) Encephalopathy: (5) Hyperammonemia: PLAN: Plan Toxic/metabolic encephalopathy -Ammonia found to be elevated and remained elevated with no good bowel movement since lactulose initiated -LFTs are overall unremarkable -Coags are normal -Lactulose increased -Continue rifaximin -Suspect this is related to renal failure and protein calorie malnutrition with decreased clearance of ammonia production -GI following and case was discussed--> may need lactulose enemas versus NG tube placement if not able to get medication and orally -Appears to be improving as he is alert and was alert and oriented x3 at the time of my evaluation -MRI negative -EEG unremarkable for any signs of acute abnormality or epileptiform activity Hyperammonemia -Suspect related to decreased clearance with PRISCILLA on CKD as well as protein calorie malnutrition -Treatment as above -GI following Transaminitis -Repeat in a.m. -Abnormalities noted on gallbladder -MRCP unremarkable -INR normal Hypomagnesemia -IV magnesium given -Repeat in a.m. PRISCILLA on CKD stage IIIb -Improving -Previous kidney transplant with chronic allograft dysfunction -Baseline serum creatinine is 2 -Current serum creatinine down to 2. 5 to -Continue D5W at 100 an hour for now but anticipate transition to at least half-normal or LR in the next 24 hours -Patient remains on sodium bicarb drip with improving acidosis -Hold tacrolimus as level from last hospitalization was greater than 28--> repeat pending this admission -Nephrology aware -Continue with oral bicarb-metabolic acidosis is improving -Repeat BMP in a.m. -Nephrology is following-appreciate input Non-anion gap metabolic acidosis -Related PRISCILLA -Improving with oral bicarb Severe Malnutrition -supplements -Touch Up Painter following -If oral intake is not adequate patient may need PEG tube History of atonic bladder -Self caths regularly -Likely etiology for urinary tract infection Chronic anemia -Hemoglobin is overall stable -Continue to monitor Hypertension -Hold amlodipine as blood pressures have somewhat been labile -Continue to monitor -will likely discontinue at discharge DVT prophylaxis -Heparin 5000 units 2 times daily CODE STATUS -Full code Charges/Coding Visit Charges Inpatient E&M: 28357 Subs Hosp L2
[2022-04-29] VITALS (9 sets, daily range): BP systolic 96–126; BP diastolic 63–80; PULSE 70–86; RESP 16–18; TEMP 36.6–37.2; O2SAT 93–100
[2022-04-29] MEDS: Lactulose 20 GM/30 ML UDC PO ×6 (01:31→22:30)
[2022-04-29] MEDS: 0.9% Saline Lock 10 ML Syringe IV (01:32)
[2022-04-29] MEDS: Sodium Bicarbonate 650 MG Tablet 1300 MG PO ×3 (06:27→22:30)
[2022-04-29 08:35] LABS: Absolute Lymphocyte Count 0.39 X10^3/uL (0.83-4.51); Absolute Neutrophil Count 1.4 X10^3/uL (2.0-7.7); Basophil# 0.02 X10^3/uL; Basophil% 0.8 % (0-1); Eosinophil# 0.18 X10^3/uL; Eosinophils% 7.6 % (0-5); Hematocrit 25.1 % (40-54); Hemoglobin 8.4 g/dL (13.0-16.5); Lymphocyte # 0.39 X10^3/ul (0.83-4.51); Lymphocyte % 16.5 % (19-41); Mean Corp Hgb Conc 33.5 g/dL (32-36); Mean Corpuscular Hgb 31.3 pg (27.0-32.0); Mean Corpuscular Volume 93.7 fL (80-94); Mean Platelet Vol. 11.3 fl (6.2-12.0); Monocyte# 0.41 X10^3/uL; Monocyte% 17.3 % (0-10); NRBC Flagged by Analyzer 0 % (0-5); Neutrophil # 1.37 X10^3/uL (2.7-7.7); Neutrophil % 57.8 % (47-70); POSITIVE DIFFERENTIAL YES; Platelet Count 118 K/mm3 (150-450); RBC Distribution Width CV 13.8 % (11.6-14.6); RBC Distribution Width SD 46.5 fl (35.1-43.9); Red Blood Count 2.68 M/mm3 (4.6-6.2); White Blood Count 2.4 K/mm3 (4.4-11.0)
[2022-04-29 08:45] LABS: Differential Indicated SCAN CRITERIA MET
[2022-04-29 08:58] LABS: ALB/GLOB Ratio 0.8 RATIO (0.9-2.4); AST(SGOT) 52 U/L (15-37); Alanine Aminotransfer ALT/SGPT 42 U/L (16-61); Albumin, Serum 2.2 g/dL (3.2-5.0); Alkaline Phosphatase 119 U/L (45-117); Anion Gap 10 (5-15); BUN 37 mg/dL (7-18); BUN/Creat Ratio 14.4 RATIO (10-20); Calcium,Total 7.7 mg/dL (8.5-10.1); Chloride 113 mmol/L (98-107); Creatinine, Serum 2.57 mg/dL (0.70-1.30); EST Glomerular Filtration Rate 28 mL/min (>60); Est Glom Filt Rate - Afr Amer 34 mL/min (>60); Estimated Creatinine Clearance 29.56 ml/min; Globulin 2.8 g/dL (2.2-4.2); Glucose 89 mg/dL (74-106); Potassium 4.3 mmol/L (3.5-5.1); Sodium Level 140 mmol/L (136-145)
[2022-04-29 10:03] LABS: Differential Comment SCANNED
[2022-04-29] MEDS: Ensure Plus High Protein 120 ML LIQUID PO ×3 (10:38→17:35)
[2022-04-29] MEDS: Heparin Injection (Vial) 5,000 UNIT/ML VIAL 5000 UNIT SC ×2 (10:39→22:31)
[2022-04-29] MEDS: rifAXIMin 550 MG Tablet PO ×2 (10:39→22:30)
[2022-04-29] MEDS: Mycophenolate Mofetil 250 MG Capsule 500 MG PO ×2 (10:39→22:30)
--- NOTE | 2022-04-29 11:24 | NURSING ---
Emergency documentation started at this time.
--- NOTE | 2022-04-29 12:01 | PCM.PN.REN ---
Subjective Subjective Resting quietly. More alert today. No overnight events Objective Data Objective Data Vital Signs: Vital Signs Temp Pulse Resp BP Pulse Ox O2 Del Method 99.0 F 77 18 105/63 100 Room Air 04/29/22 10:37 04/29/22 10:37 04/29/22 10:37 04/29/22 10:37 04/29/22 10:37 04/29/22 10:37 Oxygen Delivery Method Room Air Weight: 63.6 kg Body Mass Index (BMI) 17.9 Intake & Output: Intake and Output for Last 24 Hours 04/27/22 04/28/22 04/29/22 23:59 23:59 23:59 Intake Total 2400.00 / 2400.00 1704 / 1704 2240 / 2240 Output Total 1400 / 1400 1475 / 1875 1400 / 1400 Balance 1000.00 / 1000.00 229 / -171 840 / 840 Medical Nutrition Assessment Dietitian: Malnutrition Criteria Met Start: 04/27/22 16:15 Freq: Status: Active Protocol: Document 04/27/22 16:15 RMA (Rec: 04/27/22 16:16 RMA [id number]) Nutrition Malnutrition Evidence of Malnutrition Exists Yes Malnutrition (severe): Chronic Evidenced By Suboptimal Energy Intake ( Severe),Weight Loss (Severe), Physical Changes (Severe) Clinical Problem Chronic Disease or Condition Related Malnutrition Etiology Severe protein-calorie malnutrition in the context of chronic disease related to inadequate oral intake and difficulty swallowing Signs/Symptoms as evidenced by 12% unintentional wt loss x 2 months, approximately 23% wt loss per family report in unknown timeframe, BMI 17.9, inadequate oral intake meeting less than 50% estimated nutrition needs x past 2-3 months and muscle/fat wasting in the clavicle, face, orbitals, arms and legs Status Active Problem Unintended Weight Loss Etiology related to inadequate oral intake; difficulty swallowing Signs/Symptoms as evidenced by 14.6lbs (11.5% ) weight loss in ~2 months based on estimated current weight of 135lbs Status Active Problem Recommendation Dietitian Recommendations/Changes Regular/no added salt diet with consistency as per FORENSICS ANALYST, currently minced/moist food with thin liquids. Will add ensure pudding TID w/ meals. Will add 120 ml ensure plus high protein 4 times per day w / medpass. Suspect pt will not be able to meet estimated nutrition needs by mouth and would likely benefit from enteral nutrition support if PO remains poor/inadequate and weight continues to decline; consult RD as needed for nutrition support. Lab / Micro Data Result Diagrams: 04/29/22 07:10 04/29/22 07:10 Labs: Laboratory Results - last 24 hr 04/25/22 05:30: Diff Path Review Reviewed 04/26/22 04:55: Diff Path Review Reviewed 04/28/22 06:45: Diff Path Review Reviewed 04/28/22 06:45: Total Creatine Kinase 191 04/29/22 07:10: Sodium 140, Potassium 4.3, Chloride 113 H, Carbon Dioxide 17.0 L, Anion Gap 10, BUN 37 H, Creatinine 2.57 H, Estim Creat Clear Calc 29.56, Est GFR (MDRD) Af Amer 34 L, Est GFR (MDRD) Non-Af 28 L, BUN/Creatinine Ratio 14.4, Glucose 89, Calcium 7.7 L, Magnesium 2.0, Total Bilirubin 0.70, AST 52 H, ALT 42, Alkaline Phosphatase 119 H, Total Protein 5.0 L, Albumin 2.2 L, Globulin 2.8, Albumin/Globulin Ratio 0.8 L 04/29/22 07:10: WBC 2.4 L, RBC 2.68 L, Hgb 8.4 L, Hct 25.1 L, MCV 93.7, MCH 31.3, MCHC 33.5, RDW Std Deviation 46.5 H, RDW Coeff of Anil 13.8, Plt Count 118 L, MPV 11.3, Immature Gran % (Auto) 0.000, Neut % (Auto) 57.8, Lymph % (Auto) 16.5 L, [place] % (Auto) 17.3 H, Eos % (Auto) 7.6 H, Baso % (Auto) 0.8, Absolute Neuts (auto) 1.4 L, Absolute Lymphs (auto) 0.39 L, Nucleated RBC % 0, Differential Comment SCANNED, Diff Path Review August04/29/22 07:10: Ammonia 87.0 H Micro: Microbiology 04/24/22 14:02 Blood Culture (Wb) - Left Wrist Blood Culture - Final Staphylococcus epidermidis 04/24/22 13:00 Blood Culture (Wb) - Arm Left Blood Culture - Final Staphylococcus epidermidis Rhythm Strip Rhythm Strip: Sinus Rhythm Rate: 89 Physical Exam Narrative Const: Alert, no apparent distress Cardio: S1, S2, RRR Respiratory: Lungs clear Abdomen: Soft, nontender Extremities: No edema Indwelling Ga catheter with clear urine in bag Cardio regular rate Assessment & Plan Assessment/Plan (1) Acute renal failure superimposed on stage 3a chronic kidney disease: (2) Metabolic acidosis: (3) Hyperammonemia: PLAN: Plan - Nonoliguric, hypovolemic acute kidney injury superimposed on chronic kidney disease stage III. Overall renal function is improving, patient is on IV fluids. 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 - This admission serum creatinine peaked 4.22 mg/dL and has improved to 2.57 mg/dL. Last admission serum creatinine peaked 4.58 mg/dL and improved to 2.96 mg/dL by time of discharge, no acute indication for SHRIMP PEELING MACHINE TENDER. Patient is nonoliguric, urine output so far today 1.4 L. - Patient has a history of atonic bladder, self caths regularly but currently has indwelling Ga -Ammonia level improved to 87 today, yesterday was 108, started on lactulose, GI consulted. No acute findings with abdominal ultrasound nor MRCP. -Bicarb improved and stable, he is on oral bicarb. No need for IV bicarb -Patient was on tacrolimus 1.5 mg twice daily, currently on hold. Tac level on 04/16 elevated at 28.6, previous level on 03/03/2022 elevated at 22.0. Patient had tacrolimus level drawn on 04/24 and is pending. Continue mycophenolate 500 mg twice daily. Patient found to have norovirus last hospitalization, and diarrhea has improved, will send CMV/PCR - biogeographer consult as patient has poor oral intake and if no improvement may need PEG. - d/w Dr. Bell
[2022-04-29 12:24] LABS: Pathologist Review Reviewed
[2022-04-29] MEDS: Dronabinol 2.5 MG Capsule PO (16:15)
--- NOTE | 2022-04-29 17:18 | PCM.PN.HOSP ---
Subjective Subjective Patient's mental status seems to be improving. He was more alert and interactive today and seemed less sleepy. I did discuss with him the need to increase his p.o. intake as his nutrition appears to be problem as well as his oral hydration status. Objective Data Objective Data Vital Signs: Vital Signs Temp Pulse Resp BP Pulse Ox O2 Del Method 98.2 F 70 18 103/73 99 Room Air 04/29/22 15:45 04/29/22 15:45 04/29/22 15:45 04/29/22 15:45 04/29/22 15:45 04/29/22 15:45 Oxygen Delivery Method Room Air Weight: 63.6 kg Body Mass Index (BMI) 17.9 Intake & Output: Intake and Output for Last 24 Hours 04/27/22 04/28/22 04/29/22 23:59 23:59 23:59 Intake Total 2400.00 / 2400.00 1704 / 1704 2240 / 2240 Output Total 1400 / 1400 1475 / 1875 1400 / 1400 Balance 1000.00 / 1000.00 229 / -171 840 / 840 Medical Nutrition Assessment Dietitian: Malnutrition Criteria Met Start: 04/27/22 16:15 Freq: Status: Active Protocol: Document 04/27/22 16:15 RMA (Rec: 04/27/22 16:16 RMA [id number]) Nutrition Malnutrition Evidence of Malnutrition Exists Yes Malnutrition (severe): Chronic Evidenced By Suboptimal Energy Intake ( Severe),Weight Loss (Severe), Physical Changes (Severe) Clinical Problem Chronic Disease or Condition Related Malnutrition Etiology Severe protein-calorie malnutrition in the context of chronic disease related to inadequate oral intake and difficulty swallowing Signs/Symptoms as evidenced by 12% unintentional wt loss x 2 months, approximately 23% wt loss per family report in unknown timeframe, BMI 17.9, inadequate oral intake meeting less than 50% estimated nutrition needs x past 2-3 months and muscle/fat wasting in the clavicle, face, orbitals, arms and legs Status Active Problem Unintended Weight Loss Etiology related to inadequate oral intake; difficulty swallowing Signs/Symptoms as evidenced by 14.6lbs (11.5% ) weight loss in ~2 months based on estimated current weight of 135lbs Status Active Problem Recommendation Dietitian Recommendations/Changes Regular/no added salt diet with consistency as per WILDLIFE MANAGER, currently minced/moist food with thin liquids. Will add ensure pudding TID w/ meals. Will add 120 ml ensure plus high protein 4 times per day w / medpass. Suspect pt will not be able to meet estimated nutrition needs by mouth and would likely benefit from enteral nutrition support if PO remains poor/inadequate and weight continues to decline; consult RD as needed for nutrition support. Lab / Micro Data Result Diagrams: 04/29/22 07:10 04/29/22 07:10 Labs: Laboratory Results - last 24 hr 04/29/22 07:10: Sodium 140, Potassium 4.3, Chloride 113 H, Carbon Dioxide 17.0 L, Anion Gap 10, BUN 37 H, Creatinine 2.57 H, Estim Creat Clear Calc 29.56, Est GFR (MDRD) Af Amer 34 L, Est GFR (MDRD) Non-Af 28 L, BUN/Creatinine Ratio 14.4, Glucose 89, Calcium 7.7 L, Magnesium 2.0, Total Bilirubin 0.70, AST 52 H, ALT 42, Alkaline Phosphatase 119 H, Total Protein 5.0 L, Albumin 2.2 L, Globulin 2.8, Albumin/Globulin Ratio 0.8 L 04/29/22 07:10: WBC 2.4 L, RBC 2.68 L, Hgb 8.4 L, Hct 25.1 L, MCV 93.7, MCH 31.3, MCHC 33.5, RDW Std Deviation 46.5 H, RDW Coeff of Anil 13.8, Plt Count 118 L, MPV 11.3, Immature Gran % (Auto) 0.000, Neut % (Auto) 57.8, Lymph % (Auto) 16.5 L, [place] % (Auto) 17.3 H, Eos % (Auto) 7.6 H, Baso % (Auto) 0.8, Absolute Neuts (auto) 1.4 L, Absolute Lymphs (auto) 0.39 L, Nucleated RBC % 0, Differential Comment SCANNED, Diff Path Review Reviewed 04/29/22 07:10: Ammonia 87.0 H Micro: Microbiology 04/24/22 14:02 Blood Culture (Wb) - Left Wrist Blood Culture - Final Staphylococcus epidermidis 04/24/22 13:00 Blood Culture (Wb) - Arm Left Blood Culture - Final Staphylococcus epidermidis Rhythm Strip Rhythm Strip: Sinus Rhythm Rate: 89 Physical Exam Const alert, oriented x3 and no apparent distress Constitutional Narrative: Thin, middle-aged white male with developmental delay, lying in bed sleeping, awakens easily, much less sleepy and more interactive with communication, appears malnourished HEENT head/scalp atraumatic and moist oral mucous membranes HEENT Narrative: Temporal wasting, Mallampati 1, no thrush Eyes EOMs intact bilaterally Eyes Narrative: Chronic nystagmus noted Resp normal respiratory effort, no retractions, no use of accessory muscles and clear to auscultation bilaterally Auscultation: Negative for crackles, rhonchi or wheezes Cardio regular rate, regular rhythm, S1 normal heart sound, S2 normal heart sound, no murmurs, no rub, no gallops and no clicks GI normal to inspection, nondistended, normoactive bowel sounds, soft to palpation and non-tender Extremity no clubbing, cyanosis or edema Extremity Narrative: 2+ pedal pulses, decreased lean muscle mass Neuro oriented x3, moves all extremities and no focal motor deficits Neuro Narrative: Speech is slow and deliberate, much more alert and bright today Speech: Negative for speech normal Psych affect normal Psych Narrative: Affect is flat Assessment & Plan Assessment/Plan (1) Transaminitis: (2) Severe protein-calorie malnutrition: (3) Metabolic acidosis: (4) Encephalopathy: (5) Hyperammonemia: PLAN: Plan Toxic/metabolic encephalopathy -Ammonia found to be elevated and remained elevated with no good bowel movement since lactulose initiated -LFTs are overall unremarkable -Coags are normal -Continue lactulose -Continue rifaximin -Suspect this is related to renal failure and protein calorie malnutrition with decreased clearance of ammonia production -GI following and case was discussed--> may need lactulose enemas versus NG tube placement if not able to get medication and orally -Appears to be improving as he is alert and was alert and oriented x3 at the time of my evaluation -Seemed even better today and ammonia level is trending down -MRI negative -EEG unremarkable for any signs of acute abnormality or epileptiform activity Hyperammonemia -Suspect related to decreased clearance with PRISCILLA on CKD as well as protein calorie malnutrition -Ammonia level down to 87 today with increased mentation and decreased lethargy -Repeat ammonia in a.m. -Really need to improve nutritional status and hydration status as this precipitates the above -Treatment as above -GI following Transaminitis -AST remain slightly elevated/ALT normal -Abnormalities noted on gallbladder -MRCP unremarkable -INR normal Hypomagnesemia -Resolved PRISCILLA on CKD stage IIIb -Improving -Previous kidney transplant with chronic allograft dysfunction -Baseline serum creatinine is 2 -Current serum creatinine down to 2.57 and appears to have stabilized in this range -Discontinue IV fluids and monitor serum creatinine to see if oral intake is adequate and maintaining -Continue oral bicarb -Hold tacrolimus as level from last hospitalization was greater than 28--> repeat pending this admission -Nephrology aware -Repeat BMP in a.m. -Nephrology is following-appreciate input Non-anion gap metabolic acidosis -Related PRISCILLA -Stable on oral bicarb Severe Malnutrition -supplements -Avionics Electronics Technician following -If oral intake is not adequate patient may need PEG tube -Calorie counts added -Marinol added History of atonic bladder -Self caths regularly -Likely etiology for urinary tract infection Chronic anemia -Hemoglobin is overall stable -Continue to monitor Hypertension -Hold amlodipine as blood pressures have somewhat been labile -Continue to monitor -will likely discontinue at discharge DVT prophylaxis -Heparin 5000 units 2 times daily CODE STATUS -Full code Charges/Coding Visit Charges Inpatient E&M: 95725 Subs Hosp L2
--- NOTE | 2022-04-29 19:00 | PCA ---
EMERGENCY DOCUMENTATION
--- NOTE | 2022-04-29 19:03 | PCM.PROGNOTE ---
Subjective Subjective Patient is more alert at this time. Objective Data Objective Data Vital Signs: Vital Signs Temp Pulse Resp BP Pulse Ox O2 Del Method 98.2 F 70 18 103/73 99 Room Air 04/29/22 15:45 04/29/22 15:45 04/29/22 15:45 04/29/22 15:45 04/29/22 15:45 04/29/22 15:45 Oxygen Delivery Method Room Air Weight: 140 lb 3.424 oz Body Mass Index (BMI) 17.9 Intake & Output: Intake and Output for Last 24 Hours 04/27/22 04/28/22 04/29/22 23:59 23:59 23:59 Intake Total 2400.00 / 2400.00 1704 / 1704 3350 / 3350 Output Total 1400 / 1400 1475 / 1875 1750 / 1750 Balance 1000.00 / 1000.00 229 / -171 1600 / 1600 Medical Nutrition Assessment Dietitian: Malnutrition Criteria Met Start: 04/27/22 16:15 Freq: Status: Active Protocol: Document 04/27/22 16:15 RMA (Rec: 04/27/22 16:16 RMA [id number]) Nutrition Malnutrition Evidence of Malnutrition Exists Yes Malnutrition (severe): Chronic Evidenced By Suboptimal Energy Intake ( Severe),Weight Loss (Severe), Physical Changes (Severe) Clinical Problem Chronic Disease or Condition Related Malnutrition Etiology Severe protein-calorie malnutrition in the context of chronic disease related to inadequate oral intake and difficulty swallowing Signs/Symptoms as evidenced by 12% unintentional wt loss x 2 months, approximately 23% wt loss per family report in unknown timeframe, BMI 17.9, inadequate oral intake meeting less than 50% estimated nutrition needs x past 2-3 months and muscle/fat wasting in the clavicle, face, orbitals, arms and legs Status Active Problem Unintended Weight Loss Etiology related to inadequate oral intake; difficulty swallowing Signs/Symptoms as evidenced by 14.6lbs (11.5% ) weight loss in ~2 months based on estimated current weight of 135lbs Status Active Problem Recommendation Dietitian Recommendations/Changes Regular/no added salt diet with consistency as per OBSTETRICAL ANESTHESIOLOGIST, currently minced/moist food with thin liquids. Will add ensure pudding TID w/ meals. Will add 120 ml ensure plus high protein 4 times per day w / medpass. Suspect pt will not be able to meet estimated nutrition needs by mouth and would likely benefit from enteral nutrition support if PO remains poor/inadequate and weight continues to decline; consult RD as needed for nutrition support. Lab / Micro Data Result Diagrams: 04/29/22 07:10 04/29/22 07:10 Labs: Laboratory Results - last 24 hr 04/29/22 07:10: Sodium 140, Potassium 4.3, Chloride 113 H, Carbon Dioxide 17.0 L, Anion Gap 10, BUN 37 H, Creatinine 2.57 H, Estim Creat Clear Calc 29.56, Est GFR (MDRD) Af Amer 34 L, Est GFR (MDRD) Non-Af 28 L, BUN/Creatinine Ratio 14.4, Glucose 89, Calcium 7.7 L, Magnesium 2.0, Total Bilirubin 0.70, AST 52 H, ALT 42, Alkaline Phosphatase 119 H, Total Protein 5.0 L, Albumin 2.2 L, Globulin 2.8, Albumin/Globulin Ratio 0.8 L 04/29/22 07:10: WBC 2.4 L, RBC 2.68 L, Hgb 8.4 L, Hct 25.1 L, MCV 93.7, MCH 31.3, MCHC 33.5, RDW Std Deviation 46.5 H, RDW Coeff of Anil 13.8, Plt Count 118 L, MPV 11.3, Immature Gran % (Auto) 0.000, Neut % (Auto) 57.8, Lymph % (Auto) 16.5 L, [place] % (Auto) 17.3 H, Eos % (Auto) 7.6 H, Baso % (Auto) 0.8, Absolute Neuts (auto) 1.4 L, Absolute Lymphs (auto) 0.39 L, Nucleated RBC % 0, Differential Comment SCANNED, Diff Path Review Reviewed 04/29/22 07:10: Ammonia 87.0 H Micro: Microbiology 04/24/22 14:02 Blood Culture (Wb) - Left Wrist Blood Culture - Final Staphylococcus epidermidis 04/24/22 13:00 Blood Culture (Wb) - Arm Left Blood Culture - Final Staphylococcus epidermidis Rhythm Strip Rhythm Strip: Sinus Rhythm Rate: 89 Physical Exam Const alert, oriented x3 and no apparent distress HEENT head/scalp atraumatic and moist oral mucous membranes Eyes EOMs intact bilaterally Eyes Narrative: Chronic nystagmus noted Resp normal respiratory effort, no retractions, no use of accessory muscles and clear to auscultation bilaterally Auscultation: Negative for crackles, rhonchi or wheezes Cardio regular rate, regular rhythm, S1 normal heart sound, S2 normal heart sound, no murmurs, no rub, no gallops and no clicks GI normal to inspection, nondistended, normoactive bowel sounds, soft to palpation and non-tender Extremity no clubbing, cyanosis or edema Extremity Narrative: 2+ pedal pulses, decreased lean muscle mass Neuro oriented x3, moves all extremities and no focal motor deficits Neuro Narrative: Speech is slow and deliberate, much more alert and bright today Speech: Negative for speech normal Psych affect normal Psych Narrative: Affect is flat Assessment & Plan Assessment/Plan (1) Hyperammonemia: PLAN: His ammonia level is down to 84 after 3 bowel movements.? I suspect his hyperammonemia is multifactorial secondary to protein calorie malnutrition.? I will check a CPK and LDH along with a protein electrophoresis and immunofixation.? Continue himon Xifaxan 550 mg twice a day and lactulose to 20 mL every 4 hours. Encephalopathy likely multifactorial secondary to recent infection, acute renal failure and elevated ammonia level. (2) Severe protein-calorie malnutrition: PLAN: Patient is a benefit from a feeding tube in the future as his BMI down to 18. Charges/Coding Visit Charges Inpatient E&M: 33445 Subs Hosp L2
[2022-04-30] VITALS (10 sets, daily range): BP systolic 103–123; BP diastolic 71–81; PULSE 76–88; RESP 15–16; TEMP 36.6–37.2; O2SAT 96–99
[2022-04-30] MEDS: Lactulose 20 GM/30 ML UDC PO ×6 (02:01→20:53)
[2022-04-30 06:30] LABS: Anion Gap 7 (5-15); BUN 30 mg/dL (7-18); BUN/Creat Ratio 14.2 RATIO (10-20); Calcium,Total 7.5 mg/dL (8.5-10.1); Chloride 117 mmol/L (98-107); Creatinine, Serum 2.12 mg/dL (0.70-1.30); EST Glomerular Filtration Rate 35 mL/min (>60); Est Glom Filt Rate - Afr Amer 42 mL/min (>60); Estimated Creatinine Clearance 35.83 ml/min; Glucose 88 mg/dL (74-106); Magnesium 1.5 mg/dL (1.6-2.6); Phosphorus 3.8 mg/dL (2.5-4.9); Potassium 4.3 mmol/L (3.5-5.1); Sodium Level 142 mmol/L (136-145)
[2022-04-30] MEDS: Sodium Bicarbonate 650 MG Tablet 1300 MG PO ×3 (07:08→20:54)
[2022-04-30] MEDS: Dronabinol 2.5 MG Capsule PO ×2 (07:08→20:54)
--- NOTE | 2022-04-30 08:27 | CASEMGMT ---
Discharge Director Learning This continuity writer sent updates on patient to the [facility]. This continuity writer asked for pre-cert to be started. [employer]
[2022-04-30] MEDS: rifAXIMin 550 MG Tablet PO ×2 (08:55→20:55)
[2022-04-30] MEDS: Ensure Plus High Protein 120 ML LIQUID PO (08:56)
[2022-04-30] MEDS: Heparin Injection (Vial) 5,000 UNIT/ML VIAL 5000 UNIT SC ×2 (08:56→20:55)
--- NOTE | 2022-04-30 10:09 | PCM.PN.REN ---
Documented by User: JASS Irving 04/30/22 10:14 Subjective Subjective Resting quietly, hard of hearing. No overnight events. Objective Data Objective Data Vital Signs: Vital Signs Temp Pulse Resp BP Pulse Ox O2 Del Method 98.5 F 80 16 103/73 96 Room Air 04/30/22 09:23 04/30/22 09:23 04/30/22 09:23 04/30/22 09:23 04/30/22 09:23 04/30/22 09:23 Oxygen Delivery Method Room Air Weight: 69 kg Body Mass Index (BMI) 17.9 Intake & Output: Intake and Output for Last 24 Hours 04/28/22 04/29/22 04/30/22 23:59 23:59 23:59 Intake Total 1704 / 1704 3350 / 3350 Output Total 1475 / 1875 1750 / 2050 600 / 600 Balance 229 / -171 1600 / 1300 -600 / -600 Medical Nutrition Assessment Dietitian: Malnutrition Criteria Met Start: 04/27/22 16:15 Freq: Status: Active Protocol: Document 04/27/22 16:15 RMA (Rec: 04/27/22 16:16 RMA [id number]) Nutrition Malnutrition Evidence of Malnutrition Exists Yes Malnutrition (severe): Chronic Evidenced By Suboptimal Energy Intake ( Severe),Weight Loss (Severe), Physical Changes (Severe) Clinical Problem Chronic Disease or Condition Related Malnutrition Etiology Severe protein-calorie malnutrition in the context of chronic disease related to inadequate oral intake and difficulty swallowing Signs/Symptoms as evidenced by 12% unintentional wt loss x 2 months, approximately 23% wt loss per family report in unknown timeframe, BMI 17.9, inadequate oral intake meeting less than 50% estimated nutrition needs x past 2-3 months and muscle/fat wasting in the clavicle, face, orbitals, arms and legs Status Active Problem Unintended Weight Loss Etiology related to inadequate oral intake; difficulty swallowing Signs/Symptoms as evidenced by 14.6lbs (11.5% ) weight loss in ~2 months based on estimated current weight of 135lbs Status Active Problem Recommendation Dietitian Recommendations/Changes Regular/no added salt diet with consistency as per CONSTRUCTION ESTIMATOR, currently minced/moist food with thin liquids. Will add ensure pudding TID w/ meals. Will add 120 ml ensure plus high protein 4 times per day w / medpass. Suspect pt will not be able to meet estimated nutrition needs by mouth and would likely benefit from enteral nutrition support if PO remains poor/inadequate and weight continues to decline; consult RD as needed for nutrition support. Lab / Micro Data Result Diagrams: 05/01/22 05:50 05/01/22 05:50 Labs: Laboratory Results - last 24 hr 04/29/22 07:10: Diff Path Review Reviewed 04/30/22 05:52: Ammonia 51.0 H 04/30/22 05:52: Sodium 142, Potassium 4.3, Chloride 117 H, Carbon Dioxide 18.0 L, Anion Gap 7, BUN 30 H, Creatinine 2.12 H, Estim Creat Clear Calc 35.83, Est GFR (MDRD) Af Amer 42 L, Est GFR (MDRD) Non-Af 35 L, BUN/Creatinine Ratio 14.2, Glucose 88, Calcium 7.5 L, Phosphorus 3.8, Magnesium 1.5 L Micro: Microbiology 04/24/22 14:02 Blood Culture (Wb) - Left Wrist Blood Culture - Final Staphylococcus epidermidis 04/24/22 13:00 Blood Culture (Wb) - Arm Left Blood Culture - Final Staphylococcus epidermidis Rhythm Strip Rhythm Strip: Sinus Rhythm Rate: 89 Physical Exam Narrative Const: Alert, no apparent distress. [place] DEE-NI'. Cardio: S1, S2, RRR Respiratory: Lungs clear Abdomen: Soft, nontender Extremities: No edema Indwelling Ga catheter with clear urine in bag Assessment & Plan Assessment/Plan (1) Acute renal failure superimposed on stage 3a chronic kidney disease: (2) Metabolic acidosis: (3) Hyperammonemia: PLAN: Plan - Nonoliguric, hypovolemic acute kidney injury superimposed on chronic kidney disease stage III. Overall renal function is improving, patient is on IV fluids. 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 - This admission serum creatinine peaked 4.22 mg/dL and has improved to 2.12 mg/dL. Last admission serum creatinine peaked 4.58 mg/dL and improved to 2.96 mg/dL by time of discharge, no acute indication for AMMUNITION ASSEMBLY II LABORER. Patient is nonoliguric, urine output daily ~1.5L. - Patient has a history of atonic bladder, self caths regularly but currently has indwelling Ga -Ammonia level improved to 51 today, peaked 108, started on lactulose and Rifaximin, GI consulted and suspecting hyperammonemia multifactorial secondary to protein calorie malnutrition. No acute findings with abdominal ultrasound nor MRCP. -Bicarb improved and stable, he is on oral bicarb. No need for IV bicarb -Patient was on tacrolimus 1.5 mg twice daily, currently on hold. Tac level on 04/16 elevated at 28.6, previous level on 03/03/2022 elevated at 22.0. Patient had tacrolimus level drawn on 04/24 and is pending. Continue mycophenolate 500 mg twice daily. Patient found to have norovirus last hospitalization, and diarrhea has improved. CMV/PCR sent and is pending - talking books library clerk consult as patient has poor oral intake and if no improvement may need PEG. - d/w Dr. Bell Documented by User: Dr. Mitch Harrison MD 05/01/22 23:08 Objective Data Lab / Micro Data Result Diagrams: 05/01/22 05:50 05/01/22 05:50 Assessment & Plan Assessment/Plan (1) Acute renal failure superimposed on stage 3a chronic kidney disease: (2) Metabolic acidosis: (3) Hyperammonemia: PLAN: Plan - Nonoliguric, hypovolemic acute kidney injury superimposed on chronic kidney disease stage III. Overall renal function is improving, patient is on IV fluids. 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 - This admission serum creatinine peaked 4.22 mg/dL and has improved to 2.12 mg/dL. Last admission serum creatinine peaked 4.58 mg/dL and improved to 2.96 mg/dL by time of discharge, no acute indication for AMMUNITION ASSEMBLY II LABORER. Patient is nonoliguric, urine output daily ~1.5L. - Patient has a history of atonic bladder, self caths regularly but currently has indwelling Ga -Ammonia level improved to 51 today, peaked 108, started on lactulose and Rifaximin, GI consulted and suspecting hyperammonemia multifactorial secondary to protein calorie malnutrition. No acute findings with abdominal ultrasound nor MRCP. -Bicarb improved and stable, he is on oral bicarb. No need for IV bicarb -Patient was on tacrolimus 1.5 mg twice daily, currently on hold. Tac level on 04/16 elevated at 28.6, previous level on 03/03/2022 elevated at 22.0. Patient had tacrolimus level drawn on 04/24 and is pending. Continue mycophenolate 500 mg twice daily. Patient found to have norovirus last hospitalization, and diarrhea has improved. CMV/PCR sent and is pending - talking books library clerk consult as patient has poor oral intake and if no improvement may need PEG. - d/w Dr. Bell Discussed with RULING MACHINE FEEDER agree with note as outlined above -Still awaiting tacrolimus level - Restart Prograf lower dose of 1 mg twice daily
[2022-04-30] MEDS: Mycophenolate Mofetil 250 MG Capsule 500 MG PO ×2 (12:05→20:55)
--- NOTE | 2022-04-30 12:18 | CASEMGMT ---
Social Work Notified by Dr. Bell that plan is for possible PEG tube tomorrow and patient most likely won't be medically cleared until beginning of next week. This social studies department chair notified discharge business continuity planning director, Breanna as pre-cert has been started and not sure if patient will be medically cleared when pre-cert is obtained. PLAN: [facility], skilled pending pre-cert and medical clearance. Will continue to follow. Emma Berger MSW, MARTHA
--- NOTE | 2022-04-30 17:11 | PN.HOSP_ITS ---
Subjective Subjective Level alertness is much better. Patient is more interactive and asked to see Dr. Ruiz Plynette. intake remains questionable. I did discuss what has been going on with his brother and sister who are power of mold presser. I recommended PEG and they are agreeable however the brother would like to be present when the procedure is done to help comfort his brother and help with his mother. He is currently in [place] and states he will be back on [place]. I discussed the case with Dr. Ricks and he is willing to evaluate the patient with likely planning a PEG placement on 05/04/2022. No issues overnight. Patient with no complaints. Family did express concerns that he may be depressed and was asking if there was anything that we could utilize for depression that would stimulate his appetite. We did discuss initiation of Remeron and I indicated I would do this. Objective Data Objective Data Vital Signs: Vital Signs Temp Pulse Resp BP Pulse Ox O2 Del Method 98.9 F 78 15 119/79 99 Room Air 04/30/22 15:30 04/30/22 15:30 04/30/22 15:30 04/30/22 15:30 04/30/22 15:30 04/30/22 15:30 Oxygen Delivery Method Room Air Weight: 69 kg Body Mass Index (BMI) 17.9 Intake & Output: Intake and Output for Last 24 Hours 04/28/22 04/29/22 04/30/22 23:59 23:59 23:59 Intake Total 1704 / 1704 3350 / 3350 464 / 464 Output Total 1475 / 1875 1750 / 2050 1150 / 1150 Balance 229 / -171 1600 / 1300 -686 / -686 Medical Nutrition Assessment Dietitian: Malnutrition Criteria Met Start: 04/27/22 16:15 Freq: Status: Active Protocol: Document 04/27/22 16:15 RMA (Rec: 04/27/22 16:16 RMA [id number]) Nutrition Malnutrition Evidence of Malnutrition Exists Yes Malnutrition (severe): Chronic Evidenced By Suboptimal Energy Intake ( Severe),Weight Loss (Severe), Physical Changes (Severe) Clinical Problem Chronic Disease or Condition Related Malnutrition Etiology Severe protein-calorie malnutrition in the context of chronic disease related to inadequate oral intake and difficulty swallowing Signs/Symptoms as evidenced by 12% unintentional wt loss x 2 months, approximately 23% wt loss per family report in unknown timeframe, BMI 17.9, inadequate oral intake meeting less than 50% estimated nutrition needs x past 2-3 months and muscle/fat wasting in the clavicle, face, orbitals, arms and legs Status Active Problem Unintended Weight Loss Etiology related to inadequate oral intake; difficulty swallowing Signs/Symptoms as evidenced by 14.6lbs (11.5% ) weight loss in ~2 months based on estimated current weight of 135lbs Status Active Problem Recommendation Dietitian Recommendations/Changes Regular/no added salt diet with consistency as per SCRAP STRIPPER HAND, currently minced/moist food with thin liquids. Will add ensure pudding TID w/ meals. Will add 120 ml ensure plus high protein 4 times per day w / medpass. Suspect pt will not be able to meet estimated nutrition needs by mouth and would likely benefit from enteral nutrition support if PO remains poor/inadequate and weight continues to decline; consult RD as needed for nutrition support. Lab / Micro Data Result Diagrams: 04/29/22 07:10 04/30/22 05:52 Labs: Laboratory Results - last 24 hr 04/30/22 05:52: Ammonia 51.0 H 04/30/22 05:52: Sodium 142, Potassium 4.3, Chloride 117 H, Carbon Dioxide 18.0 L , Anion Gap 7, BUN 30 H, Creatinine 2.12 H, Estim Creat Clear Calc 35.83, Est GFR (MDRD) Af Amer 42 L, Est GFR (MDRD) Non-Af 35 L, BUN/Creatinine Ratio 14.2, Glucose 88, Calcium 7.5 L, Phosphorus 3.8, Magnesium 1.5 L Micro: Microbiology 04/24/22 14:02 Blood Culture (Wb) - Left Wrist Blood Culture - Final Staphylococcus epidermidis 04/24/22 13:00 Blood Culture (Wb) - Arm Left Blood Culture - Final Staphylococcus epidermidis Rhythm Strip Rhythm Strip: Sinus Rhythm Rate: 89 Physical Exam Const alert, oriented x3 and no apparent distress Constitutional Narrative: Thin, middle-aged white male with developmental delay, lying in bed sleeping, awakens easily, remains much less sleepy and more interactive with c ommunication, appears malnourished General Appearance: uncooperative HEENT head/scalp atraumatic and moist oral mucous membranes Head and Scalp: normocephalic Resp normal respiratory effort, no retractions, no use of accessory muscles and clear to auscultation bilaterally Auscultation: Negative for crackles, rhonchi or wheezes Cardio regular rate, regular rhythm, S1 normal heart sound, S2 normal heart sound, no murmurs, no rub, no gallops and no clicks GI normal to inspection, nondistended, normoactive bowel sounds, soft to palpation, non-tender and non-distended GI Narrative: Scaphoid abdomen Extremity normal to inspection and no clubbing, cyanosis or edema Extremity Narrative: 2+ pedal pulses, decreased lean muscle mass Neuro oriented x3, moves all extremities and no focal motor deficits Neuro Narrative: Speech is slow and deliberate, alertness continues to improve Speech: Negative for speech normal Psych affect normal Psych Narrative: Affect is flat Assessment & Plan Assessment/Plan (1) Transaminitis: (2) Severe protein-calorie malnutrition: (3) Metabolic acidosis: (4) Encephalopathy: (5) Hyperammonemia: PLAN: Plan Toxic/metabolic encephalopathy -Ammonia found to be elevated and is improving with improved mental status -LFTs are overall unremarkable -Coags are normal -Continue lactulose -Continue rifaximin -Suspect this is related to renal failure and protein calorie malnutrition with decreased clearance of ammonia production -GI following and case was discussed--> may need lactulose enemas versus NG tube placement if not able to get medication and orally -Patient remains with improved mental status and is alert and orient x3 -MRI negative -EEG unremarkable for any signs of acute abnormality or epileptiform activity Hyperammonemia -Suspect related to decreased clearance with PRISCILLA on CKD as well as protein calorie malnutrition -Ammonia level down to 51 today from 87 yesterday with increased mentation and decreased lethargy -No reason to further trend ammonia -Continue lactulose and rifaximin -Really need to improve nutritional status and hydration status as this precipitates the above -Consult general surgery for PEG--> Case discussed with Dr. Ricks -Treatment as above -GI following Transaminitis -AST remain slightly elevated/ALT normal -Abnormalities noted on gallbladder -MRCP unremarkable -INR normal Hypomagnesemia -0.5 this morning -2 g IV -Repeat in a.m. PRISCILLA on CKD stage IIIb -Improving -Previous kidney transplant with chronic allograft dysfunction -Baseline serum creatinine is 2 -Current serum creatinine down to 2.1 and close to baseline -Continue to monitor creatinine off IV fluids -Continue oral bicarb -Hold tacrolimus as level from last hospitalization was greater than 28--> repeat pending this admission -Nephrology aware -Will need tacrolimus plan prior to discharge -Repeat BMP in a.m. -Nephrology is following-appreciate input Non-anion gap metabolic acidosis -Related PRISCILLA -Stable on oral bicarb Severe Malnutrition -supplements -Clinical Application Consultant following -PEG tube to be placed after discussion with brother and sister who are POA to help supplement nutrition when p.o. intake is not adequate to avoid dehydration and to improve his nutritional status -PICC placement likely to occur on 05/04/2022 -Calorie counts -Continue Marinol and Remeron added to help with appetite History of atonic bladder -Self caths regularly -Currently has Ga in place Chronic anemia -Hemoglobin is overall stable -Continue to monitor Hypertension -Hold amlodipine as blood pressures have somewhat been labile -Continue to monitor -will likely discontinue at discharge Depression -Start Remeron to help with depression as well as stimulate appetite -Evelyn with family and they are aware that this may take 2 to 6 weeks to see any improvement DVT prophylaxis -Heparin 5000 units 2 times daily CODE STATUS -Full code Charges/Coding Visit Charges Inpatient E&M: 16509 Subs Hosp L2
--- NOTE | 2022-04-30 18:39 | EX.PCM.CON.S ---
Assessment & Plan Assessment/Plan (1) Severe protein-calorie malnutrition: PLAN: This is a 56-year-old, medically complex male is suspected to have hyperammonemia secondary to skeletal muscle breakdown and poor renal clearance. Unfortunately he is an unreliable historian given his underlying MR. Surgery was asked to consider possible PEG tube placement for patient given his inconsistent nutrition. Unfortunately, patient's most recent MRCP shows a moderate amount of ascites and when discussing this with gastroenterology, there is still a suspicion for possible underlying cirrhosis (possibly related to patient's use of antirejection medications post renal transplant). With the presence of ascites, this represents a contraindication to percutaneous endoscopic gastrostomy tube placement. I have discussed this reservation with hospitalist and shared that this contraindication stands despite etiology for ascites. PEG tube is placed in the presence of ascites have demonstrated significantly high rates of inpatient mortality, peritonitis, and poor healing (lack of apposition between gastric wall and abdominal wall). I also attempted to telephone patient's brother, and power of corporate associate attorney with this impression, but my call was not answered. I will plan to follow-up again tomorrow. In the meantime patient's primary team is to consider possible paracentesis and evaluation with SAAG gradient for etiology of ascites. HPI Consult Data Date of Consult: 04/30/22 HPI Narrative Reason for Consultation: Consideration of PEG tube placement HPI Narrative: ROOSEVELT GARCIA, is a 56 M, with history of MRDD and renal failure status post kidney transplant, who presented to [facility] with altered mental status and finding of hyperammonemia. Per hospitalist, patient had a work-up for his hyperammonemia with gastroenterology and it was ultimately concluded that patient's higher level was to be attributed to poor clearance with compromised renal dysfunction and overproduction via skeletal muscle wasting secondary to severe protein calorie malnutrition. Reported lengthy conversations with patient's family and a concern that patient was simply not reliably taking calories at his nursing facility. Possible underlying depression suspected. I therefore requested possible PEG tube placement to supplement patient's nutrition and help avoid readmission for this issue. On my arrival to patient's bedside, patient is pleasant, but dismissive and states that he plans to retire to bed early as he has had a long week and wishes to have his dinner. Patient's skilled nursing professional is also present and states that Mr. Stype seems to been doing better with his oral intake today. [facility] Medical History Anemia Bronchitis CKD (chronic kidney disease), stage III Congenital nystagmus DVT (deep venous thrombosis) HTN (hypertension) Mild intellectual disability Neurogenic bladder disorder Pancytopenia Pulmonary embolism Urinary retention Vocal cord dysfunction Home Medications mycophenolate mofetil 500 mg tablet 500 mg PO 0900,2099 Anti-Rejection 07/14/16 [History Last Taken 02/13/22] amlodipine 5 mg tablet 5 mg PO QHS BLOOD PRESSURE 09/29/17 [History Last Taken 02/12/22] tacrolimus 1 mg capsule, immediate-release 1 mg PO 0900,2099 ANTI-REJECTION 01/11/18 [History Last Taken 02/13/22] multivitamin 1 tab PO QHS supplement 02/13/22 [History Last Taken 02/12/22] tacrolimus 0.5 mg capsule, immediate-release 0.5 mg PO 0900,2099 anti rejection 02/13/22 [History Last Taken 02/13/22] acetaminophen 325 mg tablet (Tylenol) 650 mg PO Q6H PRN PRN Pain 1-10 Or Fever>100.7 #0 tabs 04/21/22 [Rx Last Taken Unknown] sodium bicarbonate 650 mg tablet 1,300 mg PO TID #6 tabs 04/21/22 [Rx Last Taken Unknown] Allergy/AdvReac Type Severity Reaction Status Date / Time anything red AdvReac Hives Uncoded 04/24/22 12:49 Family History Mother Hypertension Father Diabetes Surgical History Kidney transplant recipient Renal transplant, status post S/P arteriovenous (AV) fistula creation Social History household members: none housing: longterm Smoking Status: Never smoker second hand exposure: No alcohol intake: never substance use type: does not use caffeine: No Physical Exam Const alert Constitutional Narrative: Fails to answer questions appropriately, appears very thin Resp normal respiratory effort GI GI Narrative: Slender abdomen with standard transplant scar along right lower quadrant. No other scars or hernias are visible. Patient denies any tenderness with palpation x4 quadrants. Medical Records Data Medical Nutrition Assessment Dietitian: Malnutrition Criteria Met Start: 04/27/22 16:15 Freq: Status: Active Protocol: Document 04/27/22 16:15 RMA (Rec: 04/27/22 16:16 RMA [id number]) Nutrition Malnutrition Evidence of Malnutrition Exists Yes Malnutrition (severe): Chronic Evidenced By Suboptimal Energy Intake ( Severe),Weight Loss (Severe), Physical Changes (Severe) Clinical Problem Chronic Disease or Condition Related Malnutrition Etiology Severe protein-calorie malnutrition in the context of chronic disease related to inadequate oral intake and difficulty swallowing Signs/Symptoms as evidenced by 12% unintentional wt loss x 2 months, approximately 23% wt loss per family report in unknown timeframe, BMI 17.9, inadequate oral intake meeting less than 50% estimated nutrition needs x past 2-3 months and muscle/fat wasting in the clavicle, face, orbitals, arms and legs Status Active Problem Unintended Weight Loss Etiology related to inadequate oral intake; difficulty swallowing Signs/Symptoms as evidenced by 14.6lbs (11.5% ) weight loss in ~2 months based on estimated current weight of 135lbs Status Active Problem Recommendation Dietitian Recommendations/Changes Regular/no added salt diet with consistency as per MEDICAL AUTHORIZATION SPECIALIST, currently minced/moist food with thin liquids. Will add ensure pudding TID w/ meals. Will add 120 ml ensure plus high protein 4 times per day w / medpass. Suspect pt will not be able to meet estimated nutrition needs by mouth and would likely benefit from enteral nutrition support if PO remains poor/inadequate and weight continues to decline; consult RD as needed for nutrition support. Lab / Micro Data Result Diagrams: 04/29/22 07:10 04/30/22 05:52 Labs: Laboratory Results - last 24 hr 04/30/22 05:52: Ammonia 51.0 H 04/30/22 05:52: Sodium 142, Potassium 4.3, Chloride 117 H, Carbon Dioxide 18.0 L, Anion Gap 7, BUN 30 H, Creatinine 2.12 H, Estim Creat Clear Calc 35.83, Est GFR (MDRD) Af Amer 42 L, Est GFR (MDRD) Non-Af 35 L, BUN/Creatinine Ratio 14.2, Glucose 88, Calcium 7.5 L, Phosphorus 3.8, Magnesium 1.5 L Rhythm Strip Rhythm Strip: Sinus Rhythm Rate: 89 Charges/Coding Visit Charges Inpatient E&M: 09098 Init Hosp L2
[2022-04-30] MEDS: Tacrolimus Anhydrous 1 MG Capsule PO (20:54)
[2022-04-30] MEDS: Mirtazapine 30 MG Tablet PO (20:54)
[2022-05-01] VITALS (10 sets, daily range): BP systolic 98–117; BP diastolic 56–81; PULSE 81–105; RESP 16–18; TEMP 36.7–37.2; O2SAT 94–100
[2022-05-01] MEDS: Lactulose 20 GM/30 ML UDC PO ×6 (01:00→21:15)
[2022-05-01 06:20] LABS: Absolute Lymphocyte Count 0.31 X10^3/uL (0.83-4.51); Absolute Neutrophil Count 2.6 X10^3/uL (2.0-7.7); Basophil# 0.02 X10^3/uL; Basophil% 0.6 % (0-1); Eosinophil# 0.15 X10^3/uL; Eosinophils% 4.2 % (0-5); Lymphocyte # 0.31 X10^3/ul (0.83-4.51); Lymphocyte % 8.6 % (19-41); Mean Corpuscular Hgb 30.5 pg (27.0-32.0); Mean Corpuscular Volume 95.4 fL (80-94); Mean Platelet Vol. 12.2 fl (6.2-12.0); Monocyte# 0.55 X10^3/uL; Monocyte% 15.2 % (0-10); NRBC Flagged by Analyzer 0 % (0-5); Neutrophil # 2.57 X10^3/uL (2.7-7.7); Neutrophil % 71.1 % (47-70); POSITIVE DIFFERENTIAL YES; Platelet Count 101 K/mm3 (150-450); RBC Distribution Width CV 13.9 % (11.6-14.6); RBC Distribution Width SD 47.1 fl (35.1-43.9); Red Blood Count 2.62 M/mm3 (4.6-6.2); White Blood Count 3.6 K/mm3 (4.4-11.0)
[2022-05-01 06:41] LABS: Anion Gap 8 (5-15); BUN 26 mg/dL (7-18); BUN/Creat Ratio 13.3 RATIO (10-20); Calcium,Total 7.6 mg/dL (8.5-10.1); Chloride 117 mmol/L (98-107); Creatinine, Serum 1.95 mg/dL (0.70-1.30); EST Glomerular Filtration Rate 38 mL/min (>60); Est Glom Filt Rate - Afr Amer 46 mL/min (>60); Estimated Creatinine Clearance 42.57 ml/min; Glucose 95 mg/dL (74-106); Magnesium 1.8 mg/dL (1.6-2.6); Potassium 4.4 mmol/L (3.5-5.1); Sodium Level 142 mmol/L (136-145)
[2022-05-01] MEDS: Sodium Bicarbonate 650 MG Tablet 1300 MG PO ×3 (06:56→21:15)
[2022-05-01] MEDS: Dronabinol 2.5 MG Capsule PO ×2 (06:56→16:30)
[2022-05-01 07:02] LABS: Differential Indicated SCAN CRITERIA MET
[2022-05-01 07:39] LABS: Differential Comment SCANNED
[2022-05-01] MEDS: Mycophenolate Mofetil 250 MG Capsule 500 MG PO ×2 (09:32→21:16)
[2022-05-01] MEDS: Tacrolimus Anhydrous 1 MG Capsule PO ×2 (09:32→21:15)
[2022-05-01] MEDS: rifAXIMin 550 MG Tablet PO ×2 (09:32→21:15)
[2022-05-01] MEDS: Heparin Injection (Vial) 5,000 UNIT/ML VIAL 5000 UNIT SC ×2 (09:33→21:16)
[2022-05-01 09:37] LABS: International Normalized Ratio 1.4; Prothrombin Time (Protime)PT. 16.6 SECONDS (11.7-14.9)
--- NOTE | 2022-05-01 11:26 | CASEMGMT ---
Social Work Per physician, Pt is not medically ready for discharge today. Precert is still pending for admission to the [facility]. Update on discharge provided to the [facility]. Plan: [facility], skilled level of care, pending precert and medical readiness. AHMET Hernandez
--- NOTE | 2022-05-01 12:51 | PCM.PN.REN ---
Subjective Subjective No acute events overnight Tolerated p.o. intake a little bit Objective Data Objective Data Vital Signs: Vital Signs Temp Pulse Resp BP Pulse Ox O2 Del Method 99.0 F 96 16 113/73 95 Room Air 05/01/22 09:30 05/01/22 09:30 05/01/22 09:30 05/01/22 09:30 05/01/22 09:30 05/01/22 09:30 Oxygen Delivery Method Room Air Weight: 69.5 kg Body Mass Index (BMI) 17.9 Intake & Output: Intake and Output for Last 24 Hours 04/29/22 04/30/22 05/01/22 23:59 23:59 23:59 Intake Total 3350 / 3350 464 / 464 300 / 300 Output Total 1750 / 2050 1150 / 1700 1350 / 1350 Balance 1600 / 1300 -686 / -1236 -1050 / -1050 Medical Nutrition Assessment Dietitian: Malnutrition Criteria Met Start: 04/27/22 16:15 Freq: Status: Active Protocol: Document 04/27/22 16:15 RMA (Rec: 04/27/22 16:16 RMA [id number]) Nutrition Malnutrition Evidence of Malnutrition Exists Yes Malnutrition (severe): Chronic Evidenced By Suboptimal Energy Intake ( Severe),Weight Loss (Severe), Physical Changes (Severe) Clinical Problem Chronic Disease or Condition Related Malnutrition Etiology Severe protein-calorie malnutrition in the context of chronic disease related to inadequate oral intake and difficulty swallowing Signs/Symptoms as evidenced by 12% unintentional wt loss x 2 months, approximately 23% wt loss per family report in unknown timeframe, BMI 17.9, inadequate oral intake meeting less than 50% estimated nutrition needs x past 2-3 months and muscle/fat wasting in the clavicle, face, orbitals, arms and legs Status Active Problem Unintended Weight Loss Etiology related to inadequate oral intake; difficulty swallowing Signs/Symptoms as evidenced by 14.6lbs (11.5% ) weight loss in ~2 months based on estimated current weight of 135lbs Status Active Problem Recommendation Dietitian Recommendations/Changes Regular/no added salt diet with consistency as per SLITTER SERVICE AND SETTER, currently minced/moist food with thin liquids. Will add ensure pudding TID w/ meals. Will add 120 ml ensure plus high protein 4 times per day w / medpass. Suspect pt will not be able to meet estimated nutrition needs by mouth and would likely benefit from enteral nutrition support if PO remains poor/inadequate and weight continues to decline; consult RD as needed for nutrition support. Lab / Micro Data Result Diagrams: 05/01/22 05:50 05/01/22 05:50 Labs: Laboratory Results - last 24 hr 05/01/22 05:50: WBC 3.6 L, RBC 2.62 L, Hgb 8.0 L, Hct 25.0 L, MCV 95.4 H, MCH 30.5, MCHC 32.0, RDW Std Deviation 47.1 H, RDW Coeff of Anil 13.9, Plt Count 101 L, MPV 12.2 H, Immature Gran % (Auto) 0.300, Neut % (Auto) 71.1 H, Lymph % (Auto) 8.6 L, [place] % (Auto) 15.2 H, Eos % (Auto) 4.2, Baso % (Auto) 0.6, Absolute Neuts (auto) 2.6, Absolute Lymphs (auto) 0.31 L, Nucleated RBC % 0, Differential Comment SCANNED, Diff Path Review August05/01/22 05:50: Sodium 142, Potassium 4.4, Chloride 117 H, Carbon Dioxide 17.0 L, Anion Gap 8, BUN 26 H, Creatinine 1.95 H, Estim Creat Clear Calc 42.57, Est GFR (MDRD) Af Amer 46 L, Est GFR (MDRD) Non-Af 38 L, BUN/Creatinine Ratio 13.3, Glucose 95, Calcium 7.6 L, Magnesium 1.8 05/01/22 08:10: PT 16.6 H, INR 1.4 Micro: Microbiology 04/24/22 14:02 Blood Culture (Wb) - Left Wrist Blood Culture - Final Staphylococcus epidermidis 04/24/22 13:00 Blood Culture (Wb) - Arm Left Blood Culture - Final Staphylococcus epidermidis Rhythm Strip Rhythm Strip: Sinus Rhythm Rate: 89 Physical Exam Narrative Const: Alert, no apparent distress. TANANA. Cardio: S1, S2, RRR Respiratory: Lungs clear Abdomen: Soft, nontender, mildly distended Extremities: No edema Indwelling Ga catheter with clear urine in bag Const alert General Appearance: cooperative Orientation / Consciousness: oriented to person Exam Limitations: no limitations HEENT normocephalic Neck no lymphadenopathy Resp no use of accessory muscles and clear to auscultation bilaterally Cardio regular rate and no murmurs GI non-tender Auscultation: normoactive bowel sounds Palpation: soft and no hepatosplenomegaly Skin no rashes or lesions noted Psych Attitude: uncooperative Attention / Concentration: attention grossly intact Memory / Cognition: memory grossly intact Assessment & Plan Assessment/Plan (1) Acute renal failure superimposed on stage 3a chronic kidney disease: (2) Metabolic acidosis: (3) Hyperammonemia: PLAN: Plan - Nonoliguric, hypovolemic acute kidney injury superimposed on chronic kidney disease stage III. Overall renal function is improving, patient is on IV fluids. 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 - This admission serum creatinine peaked 4.22 mg/dL and has improved to 2.12 mg/dL. Last admission serum creatinine peaked 4.58 mg/dL and improved to 2.96 mg/dL by time of discharge, no acute indication for LANCE CREWMEMBER/MLRS SERGEANT. Patient is nonoliguric, urine output daily ~1.5L. - Patient has a history of atonic bladder, self caths regularly but currently has indwelling Ga -Ammonia level improved to 51 today, peaked 108, started on lactulose and Rifaximin, GI consulted and suspecting hyperammonemia multifactorial secondary to protein calorie malnutrition. No acute findings with abdominal ultrasound nor MRCP. -Bicarb improved and stable, he is on oral bicarb. No need for IV bicarb -Patient was on tacrolimus 1.5 mg twice daily, currently on hold. Tac level on 04/16 elevated at 28.6, previous level on 03/03/2022 elevated at 22.0. Patient had tacrolimus level drawn on 04/24 and is pending. Continue mycophenolate 500 mg twice daily. Patient found to have norovirus last hospitalization, and diarrhea has improved. CMV/PCR sent and is pending - computer graphic artist consult as patient has poor oral intake and if no improvement may need PEG. - d/w Dr. Bell 05/01 -Overall renal function is stable, serum creatinine is close to baseline -Continue with current immunosuppression medication including mycophenolate, low-dose tacrolimus -Awaiting tacro level and adjust dose accordingly to reach target of around 4-6 -Continue with p.o. sodium bicarb, encourage increased solute intake Discussed with Dr. Bell please call [phone] with any concern
--- NOTE | 2022-05-01 15:07 | NS ---
CALORIE COUNT IN PROGRESS. Discussed w/ nursing staff- Please karen percentage of foods consumed on menus and leave in room for RD to collect. Please call RDN at [phone] with questions. Norman Gan MS, RDN, LD
--- NOTE | 2022-05-01 17:09 | PCM.PN.HOSP ---
Subjective Subjective Very alert and interactive. Asking questions. Sister is at bedside. Oral intake seems to be improving. Patient ate 1100 kcal yesterday which is 60% of his required intake. We are hoping to be able to hold off on PEG placement if his oral intake improves Objective Data Objective Data Vital Signs: Vital Signs Temp Pulse Resp BP Pulse Ox O2 Del Method 98.8 F 84 16 117/70 99 Room Air 05/01/22 16:31 05/01/22 16:31 05/01/22 16:31 05/01/22 16:31 05/01/22 16:31 05/01/22 16:31 Oxygen Delivery Method Room Air Weight: 69.5 kg Body Mass Index (BMI) 17.9 Intake & Output: Intake and Output for Last 24 Hours 04/29/22 04/30/22 05/01/22 23:59 23:59 23:59 Intake Total 3350 / 3350 464 / 464 300 / 300 Output Total 1750 / 2050 1150 / 1700 1350 / 1350 Balance 1600 / 1300 -686 / -1236 -1050 / -1050 Medical Nutrition Assessment Dietitian: Malnutrition Criteria Met Start: 04/27/22 16:15 Freq: Status: Active Protocol: Document 05/01/22 13:36 AG (Rec: 05/01/22 13:36 [id number]) Nutrition Malnutrition Evidence of Malnutrition Exists Yes Malnutrition (severe): Chronic Evidenced By Suboptimal Energy Intake ( Severe),Weight Loss (Severe), Physical Changes (Severe) Clinical Problem Chronic Disease or Condition Related Malnutrition Etiology Severe protein-calorie malnutrition in the context of chronic disease related to inadequate oral intake and difficulty swallowing Signs/Symptoms as evidenced by 12% unintentional wt loss x 2 months, approximately 23% wt loss per family report in unknown timeframe, BMI 20.3, inadequate oral intake meeting less than 50% estimated nutrition needs x past 2-3 months and muscle/fat wasting in the clavicle, face, orbitals, arms and legs Status Active Problem Unintended Weight Loss Etiology related to inadequate oral intake; difficulty swallowing Signs/Symptoms as evidenced by 14.6lbs (11.5% ) weight loss in ~2 months based on estimated weight of 135lbs Status Active Problem Recommendation Dietitian Recommendations/Changes Regular diet with texture/ consistency as per DIRECTOR OF RESTAURANT OPERATIONS. Will continue ensure pudding or magic cup TID w/ meals. Continue 120 ml ensure plus high protein 4 times per day w / medpass. Suspect pt will not be able to meet estimated nutrition needs by mouth and would likely benefit from enteral nutrition support if PO remains poor/inadequate and weight continues to decline; calorie count ordered- will have results tomorrow 05/01. Lab / Micro Data Result Diagrams: 05/01/22 05:50 05/01/22 05:50 Labs: Laboratory Results - last 24 hr 05/01/22 05:50: WBC 3.6 L, RBC 2.62 L, Hgb 8.0 L, Hct 25.0 L, MCV 95.4 H, MCH 30.5, MCHC 32.0, RDW Std Deviation 47.1 H, RDW Coeff of Anil 13.9, Plt Count 101 L, MPV 12.2 H, Immature Gran % (Auto) 0.300, Neut % (Auto) 71.1 H, Lymph % (Auto) 8.6 L, [place] % (Auto) 15.2 H, Eos % (Auto) 4.2, Baso % (Auto) 0.6, Absolute Neuts (auto) 2.6, Absolute Lymphs (auto) 0.31 L, Nucleated RBC % 0, Differential Comment SCANNED, Diff Path Review August05/01/22 05:50: Sodium 142, Potassium 4.4, Chloride 117 H, Carbon Dioxide 17.0 L, Anion Gap 8, BUN 26 H, Creatinine 1.95 H, Estim Creat Clear Calc 42.57, Est GFR (MDRD) Af Amer 46 L, Est GFR (MDRD) Non-Af 38 L, BUN/Creatinine Ratio 13.3, Glucose 95, Calcium 7.6 L, Magnesium 1.8 05/01/22 08:10: PT 16.6 H, INR 1.4 Micro: Microbiology 04/24/22 14:02 Blood Culture (Wb) - Left Wrist Blood Culture - Final Staphylococcus epidermidis 04/24/22 13:00 Blood Culture (Wb) - Arm Left Blood Culture - Final Staphylococcus epidermidis Rhythm Strip Rhythm Strip: Sinus Rhythm Rate: 89 Physical Exam Const alert, oriented x3 and no apparent distress Constitutional Narrative: Thin, malnourished appearing, middle-aged white male with developmental delay, sitting up in bed, communicating, sister presents the bedside during my exam and discussion General Appearance: uncooperative HEENT head/scalp atraumatic and moist oral mucous membranes Head and Scalp: normocephalic Resp normal respiratory effort, no retractions, no use of accessory muscles and clear to auscultation bilaterally Auscultation: Negative for crackles, rhonchi or wheezes Cardio regular rate, regular rhythm, S1 normal heart sound, S2 normal heart sound, no murmurs, no rub, no gallops and no clicks GI normal to inspection, nondistended, normoactive bowel sounds, soft to palpation and non-tender GI Narrative: Scaphoid abdomen Extremity normal to inspection and no clubbing, cyanosis or edema Extremity Narrative: 2+ pedal pulses, decreased lean muscle mass Neuro oriented x3, moves all extremities and no focal motor deficits Neuro Narrative: Much improved alertness, speech remains slow and deliberate but coherent and clear Psych affect normal Assessment & Plan Assessment/Plan (1) Transaminitis: (2) Severe protein-calorie malnutrition: (3) Metabolic acidosis: (4) Encephalopathy: (5) Hyperammonemia: PLAN: Plan Toxic/metabolic encephalopathy -Ammonia found to be elevated and is improving with improved mental status -Resolved -Patient remains with improved mental status and is alert and orient x3--> today is the best mental status I seen him have since admission -MRI negative -EEG unremarkable for any signs of acute abnormality or epileptiform activity Hyperammonemia -Suspect related to decreased clearance with PRISCILLA on CKD as well as protein calorie malnutrition -No further trending of ammonia if mental status declines we will repeat -Continue lactulose and rifaximin -Really need to improve nutritional status and hydration status as this precipitates the above -We did consider a PEG however the patient is not amenable to it PEG secondary to ascitic fluid in the abdomen which increases risk of infection and leakage -Treatment as above -GI following Transaminitis -Solving -Abnormalities noted on gallbladder -MRCP unremarkable -INR normal Hypomagnesemia - resolved PRISCILLA on CKD stage IIIb -Improving -Previous kidney transplant with chronic allograft dysfunction -Baseline serum creatinine is 2 -Current serum creatinine down to 1.95 -Continue to monitor creatinine off IV fluids -Continue oral bicarb -Tacrolimus reinitiated by nephrology at lower dose -Repeat BMP in a.m. -Nephrology is following-appreciate input--> discussed case with Dr. Harrison Non-anion gap metabolic acidosis -Related PRISCILLA -Stable on oral bicarb Severe Malnutrition -supplements -Air Quality Instrument Specialist following -We initially wanted to place a PEG -Fortunately patient with ascites and unable to do so -Calorie counts -Oral intake in last 24 hours was 1100 kcal which is 60% of recommended p.o. intake -Continue to monitor as p.o. intake seems to be improving regularly -Need to make sure her liquid intake is adequate and we will monitor renal function for this through the weekend -Continue Marinol and Remeron added to help with appetite History of atonic bladder -Self caths regularly -Currently has Ga in place Chronic anemia -Hemoglobin is overall stable -Continue to monitor Hypertension -Hold amlodipine as blood pressures have somewhat been labile -Continue to monitor -will likely discontinue at discharge Depression -Continue Remeron to help with depression as well as stimulate appetite -Discussed with family and they are aware that this may take 2 to 6 weeks to see any improvement DVT prophylaxis -Heparin 5000 units 2 times daily CODE STATUS -Full code Sister was at the bedside today. I discussed the overall plan and improvement in oral intake. Why the PEG was on hold and would not proceed at this time. She voiced understanding and stated she would relay the message to her brother who is currently on vacation in [place]. Charges/Coding Visit Charges Inpatient E&M: 67561 Subs Hosp L2
[2022-05-01] MEDS: Mirtazapine 30 MG Tablet PO (21:15)
[2022-05-02] VITALS (10 sets, daily range): BP systolic 95–123; BP diastolic 58–83; PULSE 74–84; RESP 14–18; TEMP 36.5–36.8; O2SAT 97–100
[2022-05-02] MEDS: Lactulose 20 GM/30 ML UDC PO ×6 (03:01→22:34)
[2022-05-02] MEDS: Sodium Bicarbonate 650 MG Tablet 1300 MG PO ×3 (06:51→22:35)
[2022-05-02 07:33] LABS: Absolute Lymphocyte Count 0.42 X10^3/uL (0.83-4.51); Absolute Neutrophil Count 1.3 X10^3/uL (2.0-7.7); Basophil# 0.01 X10^3/uL; Basophil% 0.4 % (0-1); Eosinophil# 0.21 X10^3/uL; Eosinophils% 8.1 % (0-5); Hematocrit 23.4 % (40-54); Hemoglobin 7.3 g/dL (13.0-16.5); Lymphocyte # 0.42 X10^3/ul (0.83-4.51); Lymphocyte % 16.2 % (19-41); Mean Corp Hgb Conc 31.2 g/dL (32-36); Mean Corpuscular Volume 96.3 fL (80-94); Mean Platelet Vol. 12.8 fl (6.2-12.0); Monocyte# 0.69 X10^3/uL; Monocyte% 26.6 % (0-10); NRBC Flagged by Analyzer 0 % (0-5); Neutrophil # 1.25 X10^3/uL (2.7-7.7); Neutrophil % 48.3 % (47-70); POSITIVE COUNT YES; POSITIVE DIFFERENTIAL YES; Platelet Count 87 K/mm3 (150-450); RBC Distribution Width SD 49.1 fl (35.1-43.9); Red Blood Count 2.43 M/mm3 (4.6-6.2); White Blood Count 2.6 K/mm3 (4.4-11.0)
[2022-05-02 07:52] LABS: Differential Indicated SCAN CRITERIA MET
[2022-05-02 08:05] LABS: Anion Gap 6 (5-15); BUN 28 mg/dL (7-18); BUN/Creat Ratio 15.2 RATIO (10-20); Calcium,Total 7.5 mg/dL (8.5-10.1); Chloride 115 mmol/L (98-107); Creatinine, Serum 1.84 mg/dL (0.70-1.30); EST Glomerular Filtration Rate 41 mL/min (>60); Est Glom Filt Rate - Afr Amer 49 mL/min (>60); Estimated Creatinine Clearance 45.12 ml/min; Glucose 78 mg/dL (74-106); Potassium 4.8 mmol/L (3.5-5.1); Sodium Level 141 mmol/L (136-145)
[2022-05-02] MEDS: Tacrolimus Anhydrous 1 MG Capsule PO ×2 (08:21→22:35)
[2022-05-02] MEDS: Mycophenolate Mofetil 250 MG Capsule 500 MG PO ×2 (08:21→22:35)
[2022-05-02] MEDS: Heparin Injection (Vial) 5,000 UNIT/ML VIAL 5000 UNIT SC ×2 (08:21→22:34)
[2022-05-02] MEDS: rifAXIMin 550 MG Tablet PO ×2 (08:21→22:34)
[2022-05-02] MEDS: Dronabinol 2.5 MG Capsule PO ×2 (08:26→17:10)
[2022-05-02 09:44] LABS: Differential Comment SCANNED
--- NOTE | 2022-05-02 11:23 | NURSING ---
call from An F[facility] stating pt received pre-cert and it is good until 05/05/22
[2022-05-02 11:27] LABS: Tacrolimus (FK506) 28.7 ng/mL (2.0-20.0)
--- NOTE | 2022-05-02 11:55 | CASEMGMT ---
STUART spoke to An from [place]. Patient has received precert and can return to [place] when medically ready. An stated that she was told by staff that patient would not be ready till Wednesday. Rachel CLOUD
--- NOTE | 2022-05-02 14:50 | PCM.PN.HOSP ---
Subjective Subjective Patient resting comfortably stated he was trying to get a nap before his lunch came. Oral intake yesterday was just over 1000 kcal. I discussed with dietitian that really can push oral intake even further today trying to improve this so we will have to further do interventions with regards to nutrition. I encouraged him to eat more as well. Creatinine remains stable Objective Data Objective Data Vital Signs: Vital Signs Temp Pulse Resp BP Pulse Ox O2 Del Method 98.1 F 79 16 107/64 97 Room Air 05/02/22 14:43 05/02/22 14:43 05/02/22 14:43 05/02/22 14:43 05/02/22 14:43 05/02/22 14:43 Oxygen Delivery Method Room Air Weight: 69.6 kg Body Mass Index (BMI) 17.9 Intake & Output: Intake and Output for Last 24 Hours 04/30/22 05/01/22 05/02/22 23:59 23:59 23:59 Intake Total 464 / 464 300 / 300 Output Total 1150 / 1700 1350 / 1750 900 / 900 Balance -686 / -1236 -1050 / -1450 -900 / -900 Medical Nutrition Assessment Dietitian: Malnutrition Criteria Met Start: 04/27/22 16:15 Freq: Status: Active Protocol: Document 05/02/22 12:00 (Rec: 05/02/22 12:01 [id number]) Nutrition Malnutrition Evidence of Malnutrition Exists Yes Malnutrition (severe): Chronic Evidenced By Suboptimal Energy Intake ( Severe),Weight Loss (Severe), Physical Changes (Severe) Clinical Problem Chronic Disease or Condition Related Malnutrition Etiology Severe protein-calorie malnutrition in the context of chronic disease related to inadequate oral intake and difficulty swallowing Signs/Symptoms as evidenced by 12% unintentional wt loss x 2 months, approximately 23% wt loss per family report in unknown timeframe, BMI 20.3, inadequate oral intake meeting less than 50% estimated nutrition needs x past 2-3 months and muscle/fat wasting in the clavicle, face, orbitals, arms and legs Status Active Problem Unintended Weight Loss Etiology related to inadequate oral intake; difficulty swallowing Signs/Symptoms as evidenced by 14.6lbs (11.5% ) weight loss in ~2 months based on estimated weight of 135lbs Status Active Problem Recommendation Dietitian Recommendations/Changes Regular diet with texture/ consistency as per OFFICE RENTAL CLERK. Will provide milk and jello w/ meals as pt not accepting of Ensure pudding or Magic Cup. Continue 120 ml ensure plus high protein 4 times per day w / medpass. Suspect pt will not be able to meet estimated nutrition needs by mouth and would likely benefit from enteral nutrition support if PO remains poor/inadequate and weight continues to decline; calorie count ordered- will have results tomorrow 05/01. Lab / Micro Data Result Diagrams: 05/02/22 05:58 05/02/22 05:58 Labs: Laboratory Results - last 24 hr 04/24/22 13:00: Tacrolimus 28.7 H 05/02/22 05:58: WBC 2.6 L, RBC 2.43 L, Hgb 7.3 L, Hct 23.4 L, MCV 96.3 H, MCH 30.0, MCHC 31.2 L, RDW Std Deviation 49.1 H, RDW Coeff of Anil 14.0, Plt Count 87 L, MPV 12.8 H, Immature Gran % (Auto) 0.400, Neut % (Auto) 48.3, Lymph % (Auto) 16.2 L, [place] % (Auto) 26.6 H, Eos % (Auto) 8.1 H, Baso % (Auto) 0.4, Absolute Neuts (auto) 1.3 L, Absolute Lymphs (auto) 0.42 L, Nucleated RBC % 0, Differential Comment SCANNED, Diff Path Review August05/02/22 05:58: Sodium 141, Potassium 4.8, Chloride 115 H, Carbon Dioxide 20.0 L, Anion Gap 6, BUN 28 H, Creatinine 1.84 H, Estim Creat Clear Calc 45.12, Est GFR (MDRD) Af Amer 49 L, Est GFR (MDRD) Non-Af 41 L, BUN/Creatinine Ratio 15.2, Glucose 78, Calcium 7.5 L Micro: Microbiology 04/24/22 14:02 Blood Culture (Wb) - Left Wrist Blood Culture - Final Staphylococcus epidermidis 04/24/22 13:00 Blood Culture (Wb) - Arm Left Blood Culture - Final Staphylococcus epidermidis Rhythm Strip Rhythm Strip: Sinus Rhythm Rate: 89 Physical Exam Const alert, oriented x3 and no apparent distress Constitutional Narrative: Thin, malnourished appearing, middle-aged white male with developmental delay, lying in bed, communicating, sister presents the bedside during my exam and discussion HEENT head/scalp atraumatic and moist oral mucous membranes HEENT Narrative: Mallampati 1-2, no thrush Head and Scalp: normocephalic Resp normal respiratory effort, no retractions, no use of accessory muscles and clear to auscultation bilaterally Auscultation: Negative for crackles, rhonchi or wheezes Cardio regular rate, regular rhythm, S1 normal heart sound, S2 normal heart sound, no murmurs, no rub, no gallops and no clicks GI normal to inspection, nondistended, normoactive bowel sounds, soft to palpation, non-tender and non-distended GI Narrative: Scaphoid abdomen Extremity no clubbing, cyanosis or edema Extremity Narrative: 2+ pedal pulses, decreased lean muscle mass Neuro oriented x3, moves all extremities and no focal motor deficits Neuro Narrative: Mental status remains improved and speech is slow and deliberate and clear Speech: Negative for speech normal Psych Psych Narrative: Affect is flat Assessment & Plan Assessment/Plan (1) Transaminitis: (2) Severe protein-calorie malnutrition: (3) Metabolic acidosis: (4) Encephalopathy: (5) Hyperammonemia: PLAN: Plan Toxic/metabolic encephalopathy -Ammonia found to be elevated and is improving with improved mental status -Resolved -Patient remains with improved mental status and is alert and orient x3--> improved -MRI negative -EEG unremarkable for any signs of acute abnormality or epileptiform activity Hyperammonemia -Suspect related to decreased clearance with PRISCILLA on CKD as well as protein calorie malnutrition -No further trending of ammonia if mental status declines we will repeat -Continue lactulose and rifaximin -Really need to improve nutritional status and hydration status as this precipitates the above -We did consider a PEG however the patient is not amenable to it PEG secondary to ascitic fluid in the abdomen which increases risk of infection and leakage -Treatment as above -GI following Transaminitis -Resolved PRISCILLA on CKD stage IIIb -Improving -Previous kidney transplant with chronic allograft dysfunction -Baseline serum creatinine is 2 -Current serum creatinine down to 1.84 -Has been off IV fluids for 48 hours now with serum creatinine that continues to trend down -Continue oral bicarb -Tacrolimus reinitiated by nephrology at lower dose -Repeat BMP in a.m. -Nephrology is following-appreciate input--> discussed case with Dr. Harrison Non-anion gap metabolic acidosis -Related PRISCILLA -Stable on oral bicarb Severe Malnutrition -supplements -Note Specialist following -We initially wanted to place a PEG -Fortunately patient with ascites and unable to do so -Calorie counts -Oral intake in last 24 hours was 1090 kcal which is still only 60% of recommended p.o. intake -Continue to monitor as p.o. intake seems to be improving regularly -Dietitian was going to work with him as he is ordering the same meals every day to see if this will improve his oral intake -Need to make sure her liquid intake is adequate and we will monitor renal function for this through the weekend -Continue Marinol and Remeron added to help with appetite History of atonic bladder -Self caths regularly -Currently has Ga in place--> would recommend removal at discharge Chronic anemia -Hemoglobin is overall stable -Continue to monitor Hypertension -Hold amlodipine as blood pressures have somewhat been labile -Continue to monitor -will likely discontinue at discharge Depression -Continue Remeron to help with depression as well as stimulate appetite -Discussed with family and they are aware that this may take 2 to 6 weeks to see any improvement DVT prophylaxis -Heparin 5000 units 2 times daily CODE STATUS -Full code Charges/Coding Visit Charges Inpatient E&M: 94401 Subs Hosp L2
[2022-05-02] MEDS: Mirtazapine 30 MG Tablet PO (22:34)
[2022-05-02] MEDS: Ensure Plus High Protein 120 ML LIQUID PO (22:35)
[2022-05-03] VITALS (10 sets, daily range): BP systolic 104–122; BP diastolic 62–80; PULSE 78–87; RESP 15–18; TEMP 36.3–36.8; O2SAT 93–100
[2022-05-03] MEDS: Lactulose 20 GM/30 ML UDC PO ×5 (07:00→20:23)
[2022-05-03] MEDS: Sodium Bicarbonate 650 MG Tablet 1300 MG PO ×3 (07:00→20:22)
[2022-05-03] MEDS: Dronabinol 2.5 MG Capsule PO ×2 (07:00→17:29)
[2022-05-03 07:34] LABS: Absolute Lymphocyte Count 0.45 X10^3/uL (0.83-4.51); Absolute Neutrophil Count 1.1 X10^3/uL (2.0-7.7); Basophil# 0.01 X10^3/uL; Basophil% 0.4 % (0-1); Eosinophil# 0.23 X10^3/uL; Eosinophils% 10.1 % (0-5); Hematocrit 24.2 % (40-54); Hemoglobin 7.5 g/dL (13.0-16.5); Lymphocyte # 0.45 X10^3/ul (0.83-4.51); Lymphocyte % 19.8 % (19-41); Mean Corpuscular Hgb 29.9 pg (27.0-32.0); Mean Corpuscular Volume 96.4 fL (80-94); Mean Platelet Vol. 12.6 fl (6.2-12.0); NRBC Flagged by Analyzer 0 % (0-5); Neutrophil # 1.08 X10^3/uL (2.7-7.7); Neutrophil % 47.7 % (47-70); POSITIVE DIFFERENTIAL YES; Platelet Count 104 K/mm3 (150-450); RBC Distribution Width CV 14.1 % (11.6-14.6); RBC Distribution Width SD 48.9 fl (35.1-43.9); Red Blood Count 2.51 M/mm3 (4.6-6.2); White Blood Count 2.3 K/mm3 (4.4-11.0)
[2022-05-03 07:44] LABS: Anion Gap 6 (5-15); BUN 30 mg/dL (7-18); BUN/Creat Ratio 16.1 RATIO (10-20); Calcium,Total 7.5 mg/dL (8.5-10.1); Chloride 113 mmol/L (98-107); Creatinine, Serum 1.86 mg/dL (0.70-1.30); EST Glomerular Filtration Rate 40 mL/min (>60); Est Glom Filt Rate - Afr Amer 49 mL/min (>60); Estimated Creatinine Clearance 44.82 ml/min; Glucose 85 mg/dL (74-106); Potassium 4.3 mmol/L (3.5-5.1); Sodium Level 143 mmol/L (136-145)
[2022-05-03 08:00] LABS: Differential Indicated SCAN CRITERIA MET
[2022-05-03] MEDS: Ensure Plus High Protein 120 ML LIQUID PO ×2 (10:02→19:40)
[2022-05-03] MEDS: Heparin Injection (Vial) 5,000 UNIT/ML VIAL 5000 UNIT SC ×2 (10:03→20:22)
[2022-05-03] MEDS: rifAXIMin 550 MG Tablet PO ×2 (10:03→20:23)
[2022-05-03 10:05] LABS: Differential Comment SCANNED
--- NOTE | 2022-05-03 10:32 | PCM.PN.REN ---
Subjective Subjective No acute events overnight Eating breakfast Good urinary output Objective Data Objective Data Vital Signs: Vital Signs Temp Pulse Resp BP Pulse Ox O2 Del Method 98.3 F 87 15 115/77 96 Room Air 05/03/22 09:53 05/03/22 09:53 05/03/22 09:53 05/03/22 09:53 05/03/22 09:53 05/03/22 09:53 Oxygen Delivery Method Room Air Weight: 69.8 kg Body Mass Index (BMI) 17.9 Intake & Output: Intake and Output for Last 24 Hours 05/01/22 05/02/22 05/03/22 23:59 23:59 23:59 Intake Total 300 / 300 Output Total 1350 / 1750 1100 / 1600 700 / 700 Balance -1050 / -1450 -1100 / -1600 -700 / -700 Medical Nutrition Assessment Dietitian: Malnutrition Criteria Met Start: 04/27/22 16:15 Freq: Status: Active Protocol: Document 05/02/22 12:00 (Rec: 05/02/22 12:01 [id number]) Nutrition Malnutrition Evidence of Malnutrition Exists Yes Malnutrition (severe): Chronic Evidenced By Suboptimal Energy Intake ( Severe),Weight Loss (Severe), Physical Changes (Severe) Clinical Problem Chronic Disease or Condition Related Malnutrition Etiology Severe protein-calorie malnutrition in the context of chronic disease related to inadequate oral intake and difficulty swallowing Signs/Symptoms as evidenced by 12% unintentional wt loss x 2 months, approximately 23% wt loss per family report in unknown timeframe, BMI 20.3, inadequate oral intake meeting less than 50% estimated nutrition needs x past 2-3 months and muscle/fat wasting in the clavicle, face, orbitals, arms and legs Status Active Problem Unintended Weight Loss Etiology related to inadequate oral intake; difficulty swallowing Signs/Symptoms as evidenced by 14.6lbs (11.5% ) weight loss in ~2 months based on estimated weight of 135lbs Status Active Problem Recommendation Dietitian Recommendations/Changes Regular diet with texture/ consistency as per WASTEWATER ENGINEER. Will provide milk and jello w/ meals as pt not accepting of Ensure pudding or Magic Cup. Continue 120 ml ensure plus high protein 4 times per day w / medpass. Suspect pt will not be able to meet estimated nutrition needs by mouth and would likely benefit from enteral nutrition support if PO remains poor/inadequate and weight continues to decline; calorie count ordered- will have results tomorrow 05/01. Lab / Micro Data Result Diagrams: 05/03/22 06:10 05/03/22 06:10 Labs: Laboratory Results - last 24 hr 04/24/22 13:00: Tacrolimus 28.7 H 05/03/22 06:10: WBC 2.3 L, RBC 2.51 L, Hgb 7.5 L, Hct 24.2 L, MCV 96.4 H, MCH 29.9, MCHC 31.0 L, RDW Std Deviation 48.9 H, RDW Coeff of Anil 14.1, Plt Count 104 L, MPV 12.6 H, Immature Gran % (Auto) 0.000, Neut % (Auto) 47.7, Lymph % (Auto) 19.8, [place] % (Auto) 22.0 H, Eos % (Auto) 10.1 H, Baso % (Auto) 0.4, Absolute Neuts (auto) 1.1 L, Absolute Lymphs (auto) 0.45 L, Nucleated RBC % 0, Differential Comment SCANNED, Diff Path Review August05/03/22 06:10: Sodium 143, Potassium 4.3, Chloride 113 H, Carbon Dioxide 24.0, Anion Gap 6, BUN 30 H, Creatinine 1.86 H, Estim Creat Clear Calc 44.82, Est GFR (MDRD) Af Amer 49 L, Est GFR (MDRD) Non-Af 40 L, BUN/Creatinine Ratio 16.1, Glucose 85, Calcium 7.5 L Micro: Microbiology 04/24/22 14:02 Blood Culture (Wb) - Left Wrist Blood Culture - Final Staphylococcus epidermidis 04/24/22 13:00 Blood Culture (Wb) - Arm Left Blood Culture - Final Staphylococcus epidermidis Rhythm Strip Rhythm Strip: Sinus Rhythm Rate: 89 Physical Exam Narrative Const: Alert, no apparent distress. [place]. Cardio: S1, S2, RRR Respiratory: Lungs clear Abdomen: Soft, nontender, mildly distended Extremities: No edema Indwelling Ga catheter with clear urine in bag Const alert General Appearance: cooperative Orientation / Consciousness: oriented to person Exam Limitations: no limitations HEENT normocephalic Neck no lymphadenopathy Resp no use of accessory muscles and clear to auscultation bilaterally Cardio regular rate and no murmurs GI non-tender Auscultation: normoactive bowel sounds Palpation: soft and no hepatosplenomegaly Skin no rashes or lesions noted Psych Attitude: uncooperative Attention / Concentration: attention grossly intact Memory / Cognition: memory grossly intact Assessment & Plan Assessment/Plan (1) Acute renal failure superimposed on stage 3a chronic kidney disease: (2) Metabolic acidosis: (3) Hyperammonemia: PLAN: Plan - Nonoliguric, hypovolemic acute kidney injury superimposed on chronic kidney disease stage III. Overall renal function is improving, patient is on IV fluids. 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 - This admission serum creatinine peaked 4.22 mg/dL and has improved to 2.12 mg/dL. Last admission serum creatinine peaked 4.58 mg/dL and improved to 2.96 mg/dL by time of discharge, no acute indication for DRAFTER (CAD) ELECTRONIC. Patient is nonoliguric, urine output daily ~1.5L. - Patient has a history of atonic bladder, self caths regularly but currently has indwelling Ga -Ammonia level improved to 51 today, peaked 108, started on lactulose and Rifaximin, GI consulted and suspecting hyperammonemia multifactorial secondary to protein calorie malnutrition. No acute findings with abdominal ultrasound nor MRCP. -Bicarb improved and stable, he is on oral bicarb. No need for IV bicarb -Patient was on tacrolimus 1.5 mg twice daily, currently on hold. Tac level on 04/16 elevated at 28.6, previous level on 03/03/2022 elevated at 22.0. Patient had tacrolimus level drawn on 04/24 and is pending. Continue mycophenolate 500 mg twice daily. Patient found to have norovirus last hospitalization, and diarrhea has improved. CMV/PCR sent and is pending - microfilm equipment inspector consult as patient has poor oral intake and if no improvement may need PEG. - d/w Dr. Bell 05/03 -Overall doing well -Good urinary output -Prograf level remains elevated -deCrease tacrolimus to 0.5 mg twice daily -Repeat Prograf level next week Thank you please call [phone] with any concerns
[2022-05-03] MEDS: Mycophenolate Mofetil 250 MG Capsule 500 MG PO ×2 (13:57→20:22)
[2022-05-03] MEDS: Tacrolimus 0.5 MG Capsule PO ×2 (13:57→20:22)
--- NOTE | 2022-05-03 16:09 | PCM.PN.HOSP ---
Subjective Subjective Patient is eating much better overall. Per nursing somebody brought Mel's in for any 800% of the diet. P.o. intake is dramatically better and I think we will be able to get away without having to put any type of supplemental enteral tube and whether it be an NG or a PEG. He has maintained hydration without IV fluids and his renal function is stable. The patient should be able to return [facility] tomorrow as we have pre-CERT. Objective Data Objective Data Vital Signs: Vital Signs Temp Pulse Resp BP Pulse Ox O2 Del Method 98.3 F 78 15 115/77 96 Room Air 05/03/22 09:53 05/03/22 14:52 05/03/22 09:53 05/03/22 09:53 05/03/22 09:53 05/03/22 14:13 Oxygen Delivery Method Room Air Weight: 69.8 kg Body Mass Index (BMI) 17.9 Intake & Output: Intake and Output for Last 24 Hours 05/01/22 05/02/22 05/03/22 23:59 23:59 23:59 Intake Total 300 / 300 240 / 240 Output Total 1350 / 1750 1100 / 1600 700 / 700 Balance -1050 / -1450 -1100 / -1600 -460 / -460 Medical Nutrition Assessment Dietitian: Malnutrition Criteria Met Start: 04/27/22 16:15 Freq: Status: Active Protocol: Document 05/03/22 10:40 RMA (Rec: 05/03/22 10:42 RMA [id number]) Nutrition Malnutrition Evidence of Malnutrition Exists Yes Malnutrition (severe): Chronic Evidenced By Suboptimal Energy Intake ( Severe),Weight Loss (Severe), Physical Changes (Severe) Clinical Problem Chronic Disease or Condition Related Malnutrition Etiology Severe protein-calorie malnutrition in the context of chronic disease related to inadequate oral intake and difficulty swallowing Signs/Symptoms as evidenced by 12% unintentional wt loss x 2 months, approximately 23% wt loss per family report in unknown timeframe, BMI 20.3, inadequate oral intake meeting less than 50% estimated nutrition needs x past 2-3 months and muscle/fat wasting in the clavicle, face, orbitals, arms and legs Status Active Problem Unintended Weight Loss Etiology related to inadequate oral intake; difficulty swallowing Signs/Symptoms as evidenced by 14.6lbs (11.5% ) weight loss in ~2 months based on estimated weight of 135lbs Status Active Problem Recommendation Dietitian Recommendations/Changes Calorie Count 05/02 ~973 kcal/ 44 gm pro per recorded meal intake. Continue Regular diet with texture/consistency as per LACE PAPER MACHINE OPERATOR . Continue milk and jello w/ meals as pt not accepting of Ensure pudding/Magic Cup. Continue 120 ml ensure plus high protein 4 times per day w / medpass. Although oral intake is improving at meals however, overall intake remains fair on average and inadequate to meet estimated nutrition needs . 3 day calorie count (04/30, , 05/02) complete with calories/protein documented as meal intake recorded by nursing. Lab / Micro Data Result Diagrams: 05/03/22 06:10 05/03/22 06:10 Labs: Laboratory Results - last 24 hr 05/03/22 06:10: WBC 2.3 L, RBC 2.51 L, Hgb 7.5 L, Hct 24.2 L, MCV 96.4 H, MCH 29.9, MCHC 31.0 L, RDW Std Deviation 48.9 H, RDW Coeff of Anil 14.1, Plt Count 104 L, MPV 12.6 H, Immature Gran % (Auto) 0.000, Neut % (Auto) 47.7, Lymph % (Auto) 19.8, [place] % (Auto) 22.0 H, Eos % (Auto) 10.1 H, Baso % (Auto) 0.4, Absolute Neuts (auto) 1.1 L, Absolute Lymphs (auto) 0.45 L, Nucleated RBC % 0, Differential Comment SCANNED, Diff Path Review August05/03/22 06:10: Sodium 143, Potassium 4.3, Chloride 113 H, Carbon Dioxide 24.0, Anion Gap 6, BUN 30 H, Creatinine 1.86 H, Estim Creat Clear Calc 44.82, Est GFR (MDRD) Af Amer 49 L, Est GFR (MDRD) Non-Af 40 L, BUN/Creatinine Ratio 16.1, Glucose 85, Calcium 7.5 L Micro: Microbiology 04/24/22 14:02 Blood Culture (Wb) - Left Wrist Blood Culture - Final Staphylococcus epidermidis 04/24/22 13:00 Blood Culture (Wb) - Arm Left Blood Culture - Final Staphylococcus epidermidis Rhythm Strip Rhythm Strip: Sinus Rhythm Rate: 89 Physical Exam Const alert, oriented x3 and no apparent distress Constitutional Narrative: Thin, malnourished appearing, middle-aged white male with developmental delay, sitting up in bed, watching the Flintstones on TV, feeding himself breakfast and eating quite well HEENT head/scalp atraumatic and moist oral mucous membranes HEENT Narrative: Extremely hard of hearing, Mallampati is 2, no thrush Head and Scalp: normocephalic Resp normal respiratory effort, no retractions, no use of accessory muscles and clear to auscultation bilaterally Auscultation: Negative for crackles, rhonchi or wheezes Cardio regular rate, regular rhythm, S1 normal heart sound, S2 normal heart sound, no murmurs, no rub, no gallops and no clicks GI normal to inspection, nondistended, normoactive bowel sounds, soft to palpation, non-tender and non-distended GI Narrative: Scaphoid abdomen Extremity normal to inspection and no clubbing, cyanosis or edema Extremity Narrative: 2+ pedal pulses, decreased lean muscle mass Neuro oriented x3, moves all extremities and no focal motor deficits Neuro Narrative: Patient is very alert appropriately interactive feeding himself breakfast Speech: Negative for speech normal Psych affect normal Psych Narrative: Affect is flat Assessment & Plan Assessment/Plan (1) Transaminitis: (2) Severe protein-calorie malnutrition: (3) Metabolic acidosis: (4) Encephalopathy: (5) Hyperammonemia: PLAN: Plan Toxic/metabolic encephalopathy -Ammonia found to be elevated and is improving with improved mental status -Resolved -Patient remains with improved mental status and is alert and orient x3--> improved -MRI negative -EEG unremarkable for any signs of acute abnormality or epileptiform activity Hyperammonemia -Suspect related to decreased clearance with PRISCILLA on CKD as well as protein calorie malnutrition -No further trending of ammonia if mental status declines we will repeat -Continue lactulose and rifaximin -Mental status is back to baseline -Treatment as above -GI following Transaminitis -Resolved PRISCILLA on CKD stage IIIb -Improving -Previous kidney transplant with chronic allograft dysfunction -Baseline serum creatinine is 2 -Current serum creatinine down to 1.84 -Has been off IV fluids for 72 hours now with serum creatinine that is stable -Continue oral bicarb -Tacrolimus reinitiated by nephrology at lower dose--> this was held several days -Was supratherapeutic on lab testing -Repeat BMP in a.m. -Nephrology is following-appreciate input--> discussed case with Dr. Harrison Non-anion gap metabolic acidosis -Resolved Severe Malnutrition -supplements -Fiction And Nonfiction Prose Writer following -We initially wanted to place a PEG -Unfortunately patient had ascites and we were unable to do so -Calorie counts -Oral intake has dramatically improved and I do suspect as long as he is pushed as an outpatient and encouraged he should do okay -Fluid intake has been adequate as his renal function is stable and has been off supplemental IV fluids for over 72 hours -Dietitian is working with him-appreciate input -Continue Marinol and Remeron added to help with appetite History of atonic bladder -Self caths regularly -Currently has Ga in place--> would recommend removal at discharge Chronic anemia -Hemoglobin is overall stable -Continue to monitor Hypertension -Hold amlodipine as blood pressures have somewhat been labile -Continue to monitor -will likely discontinue at discharge Depression -Continue Remeron to help with depression as well as stimulate appetite -Discussed with family and they are aware that this may take 2 to 6 weeks to see any improvement DVT prophylaxis -Heparin 5000 units 2 times daily CODE STATUS -Full code Charges/Coding Visit Charges Inpatient E&M: 23199 Subs Hosp L2
[2022-05-03] MEDS: Mirtazapine 30 MG Tablet PO (20:22)
[2022-05-04] MEDS: Lactulose 20 GM/30 ML UDC PO ×4 (02:29→13:18)
[2022-05-04 02:37] VITALS: BP 108/69; PULSE 82; RESP 17; TEMP 36.7; O2SAT 96
[2022-05-04 03:42] VITALS: PULSE 84
[2022-05-04] MEDS: Sodium Bicarbonate 650 MG Tablet 1300 MG PO ×2 (06:01→13:18)
[2022-05-04] MEDS: Dronabinol 2.5 MG Capsule PO ×2 (06:01→15:36)
[2022-05-04 06:51] VITALS: PULSE 81
[2022-05-04] MEDS: Heparin Injection (Vial) 5,000 UNIT/ML VIAL 5000 UNIT SC (08:16)
[2022-05-04] MEDS: rifAXIMin 550 MG Tablet PO (08:16)
[2022-05-04] MEDS: Ensure Plus High Protein 120 ML LIQUID PO ×2 (08:16→13:18)
[2022-05-04] MEDS: Mycophenolate Mofetil 250 MG Capsule 500 MG PO (08:16)
[2022-05-04 08:36] LABS: Absolute Lymphocyte Count 0.34 X10^3/uL (0.83-4.51); Absolute Neutrophil Count 0.9 X10^3/uL (2.0-7.7); Basophil# 0.02 X10^3/uL; Eosinophil# 0.19 X10^3/uL; Eosinophils% 9.5 % (0-5); Hematocrit 24.3 % (40-54); Hemoglobin 7.5 g/dL (13.0-16.5); Lymphocyte # 0.34 X10^3/ul (0.83-4.51); Lymphocyte % 17.1 % (19-41); Mean Corp Hgb Conc 30.9 g/dL (32-36); Mean Corpuscular Hgb 30.1 pg (27.0-32.0); Mean Corpuscular Volume 97.6 fL (80-94); Mean Platelet Vol. 11.4 fl (6.2-12.0); Monocyte% 25.1 % (0-10); Neutrophil # 0.93 X10^3/uL (2.7-7.7); Neutrophil % 46.8 % (47-70); POSITIVE DIFFERENTIAL YES; Platelet Count 103 K/mm3 (150-450); RBC Distribution Width CV 14.2 % (11.6-14.6); RBC Distribution Width SD 50.6 fl (35.1-43.9); Red Blood Count 2.49 M/mm3 (4.6-6.2)
[2022-05-04 08:39] LABS: Differential Indicated SCAN CRITERIA MET
[2022-05-04 09:05] VITALS: BP 116/74; PULSE 81; RESP 18; TEMP 36.8; O2SAT 94
[2022-05-04 09:05] LABS: Anion Gap 6 (5-15); BUN 30 mg/dL (7-18); BUN/Creat Ratio 14.8 RATIO (10-20); Calcium,Total 7.6 mg/dL (8.5-10.1); Chloride 118 mmol/L (98-107); Creatinine, Serum 2.03 mg/dL (0.70-1.30); EST Glomerular Filtration Rate 36 mL/min (>60); Est Glom Filt Rate - Afr Amer 44 mL/min (>60); Estimated Creatinine Clearance 40.42 ml/min; Glucose 93 mg/dL (74-106); Magnesium 1.8 mg/dL (1.6-2.6); Potassium 4.4 mmol/L (3.5-5.1); Sodium Level 145 mmol/L (136-145)
[2022-05-04 09:12] LABS: Phosphorus 3.9 mg/dL (2.5-4.9)
--- NOTE | 2022-05-04 09:35 | PCM.PN.HOSP ---
Subjective Subjective Feels well. Objective Data Objective Data Vital Signs: Vital Signs Temp Pulse Resp BP Pulse Ox O2 Del Method 36.7 C 81 17 108/69 96 Room Air 05/04/22 02:37 05/04/22 06:51 05/04/22 02:37 05/04/22 02:37 05/04/22 02:37 05/04/22 02:37 Oxygen Delivery Method Room Air Weight: 68.7 kg Body Mass Index (BMI) 17.9 Intake & Output: Intake and Output for Last 24 Hours 05/02/22 05/03/22 05/04/22 23:59 23:59 23:59 Intake Total 240 / 240 170 / 170 Output Total 1100 / 1600 700 / 700 500 / 500 Balance -1100 / -1600 -460 / -460 -330 / -330 Medical Nutrition Assessment Dietitian: Malnutrition Criteria Met Start: 04/27/22 16:15 Freq: Status: Active Protocol: Document 05/03/22 10:40 RMA (Rec: 05/03/22 10:42 RMA [id number]) Nutrition Malnutrition Evidence of Malnutrition Exists Yes Malnutrition (severe): Chronic Evidenced By Suboptimal Energy Intake ( Severe),Weight Loss (Severe), Physical Changes (Severe) Clinical Problem Chronic Disease or Condition Related Malnutrition Etiology Severe protein-calorie malnutrition in the context of chronic disease related to inadequate oral intake and difficulty swallowing Signs/Symptoms as evidenced by 12% unintentional wt loss x 2 months, approximately 23% wt loss per family report in unknown timeframe, BMI 20.3, inadequate oral intake meeting less than 50% estimated nutrition needs x past 2-3 months and muscle/fat wasting in the clavicle, face, orbitals, arms and legs Status Active Problem Unintended Weight Loss Etiology related to inadequate oral intake; difficulty swallowing Signs/Symptoms as evidenced by 14.6lbs (11.5% ) weight loss in ~2 months based on estimated weight of 135lbs Status Active Problem Recommendation Dietitian Recommendations/Changes Calorie Count 05/02 ~973 kcal/ 44 gm pro per recorded meal intake. Continue Regular diet with texture/consistency as per GRINDER BRAKE LINING . Continue milk and jello w/ meals as pt not accepting of Ensure pudding/Magic Cup. Continue 120 ml ensure plus high protein 4 times per day w / medpass. Although oral intake is improving at meals however, overall intake remains fair on average and inadequate to meet estimated nutrition needs . 3 day calorie count (04/30, , 05/02) complete with calories/protein documented as meal intake recorded by nursing. Lab / Micro Data Result Diagrams: 05/04/22 07:58 05/04/22 07:58 Labs: Laboratory Results - last 24 hr 05/03/22 06:10: Differential Comment SCANNED, Diff Path Review August05/04/22 07:58: WBC 2.0 L, RBC 2.49 L, Hgb 7.5 L, Hct 24.3 L, MCV 97.6 H, MCH 30.1, MCHC 30.9 L, RDW Std Deviation 50.6 H, RDW Coeff of Anil 14.2, Plt Count 103 L, MPV 11.4, Immature Gran % (Auto) 0.500, Neut % (Auto) 46.8 L, Lymph % (Auto) 17.1 L, [place] % (Auto) 25.1 H, Eos % (Auto) 9.5 H, Baso % (Auto) 1.0, Absolute Neuts (auto) 0.9 L, Absolute Lymphs (auto) 0.34 L, Nucleated RBC % 1.0 05/04/22 07:58: Sodium 145, Potassium 4.4, Chloride 118 H, Carbon Dioxide 21.0, Anion Gap 6, BUN 30 H, Creatinine 2.03 H, Estim Creat Clear Calc 40.42, Est GFR (MDRD) Af Amer 44 L, Est GFR (MDRD) Non-Af 36 L, BUN/Creatinine Ratio 14.8, Glucose 93, Calcium 7.6 L, Magnesium 1.8 05/04/22 07:58: Phosphorus 3.9 Micro: Microbiology 04/24/22 14:02 Blood Culture (Wb) - Left Wrist Blood Culture - Final Staphylococcus epidermidis 04/24/22 13:00 Blood Culture (Wb) - Arm Left Blood Culture - Final Staphylococcus epidermidis Rhythm Strip Rhythm Strip: Sinus Rhythm Rate: 89 Physical Exam Const alert and no apparent distress Constitutional Narrative: [place]. speech coherent. Resp normal respiratory effort, no retractions, no use of accessory muscles and clear to auscultation bilaterally Cardio regular rate, regular rhythm, S1 normal heart sound and S2 normal heart sound GI normal to inspection, nondistended, normoactive bowel sounds, soft to palpation, non-tender and non-distended Psych affect normal Assessment & Plan Assessment/Plan (1) Encephalopathy: PLAN: Toxic/metabolic encephalopathy -Ammonia found to be elevated and is improving with improved mental status -Resolved -Patient remains with improved mental status and is alert and orient x3--> improved -MRI negative -EEG unremarkable for any signs of acute abnormality or epileptiform activity (2) Transaminitis: PLAN: Transaminitis -Resolved (3) Severe protein-calorie malnutrition: PLAN: Severe Malnutrition -supplements -Hydraulic Repairer following -We initially wanted to place a PEG -Unfortunately patient had ascites and we were unable to do so -Calorie counts -Oral intake has dramatically improved and I do suspect as long as he is pushed as an outpatient and encouraged he should do okay -Fluid intake has been adequate as his renal function is stable and has been off supplemental IV fluids for over 72 hours -Dietitian is working with him-appreciate input -Continue Marinol and Remeron added to help with appetite (4) Metabolic acidosis: PLAN: Non-anion gap metabolic acidosis -Resolved (5) Hyperammonemia: PLAN: Hyperammonemia -Suspect related to decreased clearance with PRISCILLA on CKD as well as protein calorie malnutrition -No further trending of ammonia if mental status declines we will repeat -Continue lactulose and rifaximin -Mental status is back to baseline -Treatment as above -GI following Severely elevated on the at 131. Has since trended down to 51. No need for further rechecks unless he becomes encephalopathic again. (6) PRISCILLA (acute kidney injury): PLAN: PRISCILLA on CKD stage IIIb -Improving -Previous kidney transplant with chronic allograft dysfunction -Baseline serum creatinine is 2 -Current serum creatinine down to 1.84 -Has been off IV fluids for 72 hours now with serum creatinine that is stable -Continue oral bicarb -Tacrolimus reinitiated by nephrology at lower dose--> this was held several days -Was supratherapeutic on lab testing -Repeat BMP in a.m. -Nephrology is following-appreciate input--> discussed case with Dr. Harrison PLAN: Plan Chronic conditions: History of atonic bladder -Self caths regularly -Currently has Ga in place--> would recommend removal at discharge Chronic anemia -Hemoglobin is overall stable -Continue to monitor Hypertension -Hold amlodipine as blood pressures have somewhat been labile -Continue to monitor -will likely discontinue at discharge Depression -Continue Remeron to help with depression as well as stimulate appetite -Discussed with family and they are aware that this may take 2 to 6 weeks to see any improvement DVT prophylaxis -Heparin 5000 units 2 times daily CODE STATUS -Full code
[2022-05-04] MEDS: Tacrolimus 0.5 MG Capsule PO (10:01)
[2022-05-04 11:04] LABS: Differential Comment SCANNED
--- NOTE | 2022-05-04 14:45 | PCM.TXEXTCAR ---
Diet Diet Order/Speech Therapy: 04/25/22 11:51 Diet: Regular - General Food consistency:: Easy to Chew Liquid Consistency:: Regular/Thin Type of Dietary Supplement:: milk and jello w/ meals Is pt able to select menu?: No Diet Comments: feed only when ALERT; meds whole in puree; distant supervision Routine Orders/Code Status Routine Lab Work: CBC and BMP Code Status: Full Code Therapies Weight Bearing: Full weight bearing Problem/Diagnosis (1) Encephalopathy: Status: Acute Code(s): G93.40 - Encephalopathy, unspecified Plan: Toxic/metabolic encephalopathy -Ammonia found to be elevated and is improving with improved mental status -Resolved -Patient remains with improved mental status and is alert and orient x3--> improved -MRI negative -EEG unremarkable for any signs of acute abnormality or epileptiform activity (2) Transaminitis: Status: Acute Code(s): R74.01 - Elevation of levels of liver transaminase levels Plan: Transaminitis -Resolved (3) Severe protein-calorie malnutrition: Status: Acute Code(s): E43 - Unspecified severe protein-calorie malnutrition Plan: Severe Malnutrition -supplements -Occupational Therapy Specialist following -We initially wanted to place a PEG -Unfortunately patient had ascites and we were unable to do so -Calorie counts -Oral intake has dramatically improved and I do suspect as long as he is pushed as an outpatient and encouraged he should do okay -Fluid intake has been adequate as his renal function is stable and has been off supplemental IV fluids for over 72 hours -Dietitian is working with him-appreciate input -Continue Marinol and Remeron added to help with appetite (4) Metabolic acidosis: Status: Acute Code(s): E87.20 - Acidosis, unspecified Plan: Non-anion gap metabolic acidosis -Resolved (5) Hyperammonemia: Status: Acute Code(s): E72.20 - Disorder of urea cycle metabolism, unspecified Plan: Hyperammonemia -Suspect related to decreased clearance with PRISCILLA on CKD as well as protein calorie malnutrition -No further trending of ammonia if mental status declines we will repeat -Continue lactulose and rifaximin -Mental status is back to baseline -Treatment as above -GI following Severely elevated on the at 131. Has since trended down to 51. No need for further rechecks unless he becomes encephalopathic again. (6) PRISCILLA (acute kidney injury): Status: Acute Code(s): N17.9 - Acute kidney failure, unspecified Plan: PRISCILLA on CKD stage IIIb -Improving -Previous kidney transplant with chronic allograft dysfunction -Baseline serum creatinine is 2 -Current serum creatinine down to 1.84 -Has been off IV fluids for 72 hours now with serum creatinine that is stable -Continue oral bicarb -Tacrolimus reinitiated by nephrology at lower dose--> this was held several days -Was supratherapeutic on lab testing -Repeat BMP in a.m. -Nephrology is following-appreciate input--> discussed case with Dr. Christy Altamirano Chronic conditions: History of atonic bladder -Self caths regularly -Currently has Ga in place--> would recommend removal at discharge Chronic anemia -Hemoglobin is overall stable -Continue to monitor Hypertension -Hold amlodipine as blood pressures have somewhat been labile -Continue to monitor -will likely discontinue at discharge Depression -Continue Remeron to help with depression as well as stimulate appetite -Discussed with family and they are aware that this may take 2 to 6 weeks to see any improvement DVT prophylaxis -Heparin 5000 units 2 times daily CODE STATUS -Full code Allergies/Procedures Done in Hospital Allergies anything red Adverse Reaction (Uncoded 04/24/22 12:49) Hives Procedures: None Type of Care/Length of Stay Estimated LOS: Convalescent Care Less Than 30 days Type of Care Needed: Skilled Rehab Potential: Fair Prognosis: Good Additional Orders/Day of Discharge Day of Discharge: 05/04/22 Dietary and Speech Recommendations Dietitian Recommendations/Changes: Calorie Count 05/02 ~973 kcal/44 gm pro per recorded meal intake. Continue Regular diet with texture/consistency as per ATHLETIC MONITOR. Continue milk and jello w/ meals as pt not accepting of Ensure pudding/Magic Cup. Continue 120 ml ensure plus high protein 4 times per day w/ medpass. Although oral intake is improving at meals however, overall intake remains fair on average and inadequate to meet estimated nutrition needs. 3 day calorie count (04/30, 05/01, 05/02) complete with calories/protein documented as meal intake recorded by nursing. Discharge Plan Admission Admit Date/Time: 04/24/22 15:53 Primary Reason for Your Visit: hepatic encephalopathy Attending Provider: Ambrosio Solis Primary Care Provider: Mike Bella Consulting Providers: Hamida Cook ; Ambrosio Solis ; Jose Armando Tran ; Claus Ricks ; Stella Bell Discharge Orders/Prescriptions Prescriptions: New dronabinol 2.5 mg Capsule 2.5 mg PO BIDAC Qty: 10 0RF Ensure Plus High Protein 0.08 gram-1.5 kcal/mL Liquid 120 ml PO 4X/DAY Qty: 0 0RF mirtazapine 30 mg Tablet 30 mg PO QHS Qty: 0 0RF Xifaxan 550 mg Tablet 550 mg PO BID Qty: 0 0RF lactulose 20 gram/30 mL Solution 20 g PO Q4 Qty: 0 0RF tacrolimus 0.5 mg Capsule 0.5 mg PO BID Qty: 0 0RF Continued mycophenolate mofetil 500 MG tablet 500 mg PO 899,2099 Label Comments: anti rejection multivitamin Tablet 1 tab PO QHS acetaminophen [Tylenol] 325 mg Tablet 650 mg PO Q6H PRN PRN (Reason: Pain 1-10 Or Fever>100.7) Qty: 0 0RF sodium bicarbonate 650 mg tablet 1,300 mg PO TID Qty: 6 0RF Discontinued amlodipine 5 MG tablet 5 mg PO QHS Hold Instructions: Until seen again by nephrology tacrolimus 1 MG capsule 1 mg PO 899,2099 Label Comments: TAKE TWO CAPSULES BY MOUTH TWICE DAILY tacrolimus 0.5 mg capsule 0.5 mg PO 899,2099 Label Comments: take 1 capsule by mouth twice a day Referrals / Follow Up: Mike Bella MD [Primary Care Provider] - Disposition Disposition (needs filled in before D/C Order can be placed): [facility]
--- NOTE | 2022-05-04 14:54 | PCM.DC.SUM ---
Providers Date of Admission: 04/24/22 Primary Care Physician: Dr. Mike Bella MD Consultations 04/24/22 17:21 Consult: Nephrology Routine Consulting Provider: Hamida Cook Reason for Consult: PRISCILLA. renal transplant EMERGENT Consult: No Notified: Yes Date Notified: 04/24/22 Time Notified: 16:02 Method of Notification: Answering Service Comments:: spoke with bruce 04/27/22 08:26 Consult: Gastroenterology Routine Consulting Provider: [facility] Reason for Consult: hyperammonia and liver disease EMERGENT Consult: No Notified: Yes Date Notified: 04/27/22 Time Notified: 08:26 Method of Notification: Text 04/30/22 13:21 Consult: General Surgery Routine Consulting Provider: Claus Ricks Reason for Consult: PEG placement EMERGENT Consult: No Notified: Yes Date Notified: 04/30/22 Time Notified: 13:21 Method of Notification: Verbal Reason For Visit: ENCEPHALOPATHY Diagnosis Discharge Diagnosis (1) Encephalopathy: Status: Acute Code(s): G93.40 - Encephalopathy, unspecified Plan: Toxic/metabolic encephalopathy 2/2 to hyperammoniaemia -Ammonia found to be elevated and is improving with improved mental status -Resolved -Patient remains with improved mental status and is alert and orient x3--> improved -MRI negative -EEG unremarkable for any signs of acute abnormality or epileptiform activity (2) Transaminitis: Status: Acute Code(s): R74.01 - Elevation of levels of liver transaminase levels Plan: Transaminitis -Resolved (3) Severe protein-calorie malnutrition: Status: Acute Code(s): E43 - Unspecified severe protein-calorie malnutrition Plan: Severe Malnutrition -supplements -Seasonal Greenery Bundler following -We initially wanted to place a PEG -Unfortunately patient had ascites and we were unable to do so -Calorie counts -Oral intake has dramatically improved and I do suspect as long as he is pushed as an outpatient and encouraged he should do okay -Fluid intake has been adequate as his renal function is stable and has been off supplemental IV fluids for over 72 hours -Dietitian is working with him-appreciate input -Continue Marinol and Remeron added to help with appetite (4) Metabolic acidosis: Status: Acute Code(s): E87.20 - Acidosis, unspecified Plan: Non-anion gap metabolic acidosis -Resolved -2/2 starvation ketosis (5) Hyperammonemia: Status: Acute Code(s): E72.20 - Disorder of urea cycle metabolism, unspecified Plan: Hyperammonemia -Suspect related to decreased clearance with PRISCILLA on CKD as well as protein calorie malnutrition -No further trending of ammonia if mental status declines we will repeat -Continue lactulose and rifaximin -Mental status is back to baseline -Treatment as above -GI following Severely elevated on the at 131. Has since trended down to 51. No need for further rechecks unless he becomes encephalopathic again. (6) PRISCILLA (acute kidney injury): Status: Acute Code(s): N17.9 - Acute kidney failure, unspecified Plan: PRISCILLA on CKD stage IIIb -Improving -Previous kidney transplant with chronic allograft dysfunction -Baseline serum creatinine is 2 -Current serum creatinine down to 1.84 -Has been off IV fluids for 72 hours now with serum creatinine that is stable -Continue oral bicarb -Tacrolimus reinitiated by nephrology at lower dose--> this was held several days -Was supratherapeutic on lab testing -Repeat BMP in a.m. -Nephrology is following-appreciate input--> discussed case with Dr. Christy Altamirano Chronic conditions: History of atonic bladder -Self caths regularly -Currently has Ga in place--> would recommend removal at discharge Chronic anemia -Hemoglobin is overall stable -Continue to monitor Hypertension -Hold amlodipine as blood pressures have somewhat been labile -Continue to monitor -will likely discontinue at discharge Depression -Continue Remeron to help with depression as well as stimulate appetite -Discussed with family and they are aware that this may take 2 to 6 weeks to see any improvement DVT prophylaxis -Heparin 5000 units 2 times daily CODE STATUS -Full code Medications at Discharge Home Medications mycophenolate mofetil 500 mg tablet 500 mg PO 0900,2100 Anti-Rejection 07/14/16 multivitamin 1 tab PO QHS supplement 02/13/22 acetaminophen 325 mg tablet (Tylenol) 650 mg PO Q6H PRN PRN Pain 1-10 Or Fever>100.7 #0 tabs 04/21/22 sodium bicarbonate 650 mg tablet 1,300 mg PO TID #6 tabs 04/21/22 dronabinol 2.5 mg capsule 2.5 mg PO BIDAC #10 caps 05/04/22 food supplemt, lactose-reduced 0.08 gram-1.5 kcal/mL oral liquid (Ensure Plus High Protein) 120 ml PO 4X/DAY #0 mL 05/04/22 lactulose 20 gram/30 mL oral solution 20 g (30 mL) PO Q4 #0 mL 05/04/22 mirtazapine 30 mg tablet 30 mg PO QHS #0 tabs 05/04/22 rifaximin 550 mg tablet (Xifaxan) 550 mg PO BID #0 tabs 05/04/22 tacrolimus 0.5 mg capsule, immediate-release 0.5 mg PO BID #0 caps 05/04/22 Hospital Course Operations None Procedures None Summary of Care Provided Minutes Spent on Discharge: 35 Medical Records Data Medical Nutrition Assessment Dietitian: Malnutrition Criteria Met Start: 04/27/22 16:15 Freq: Status: Active Protocol: Document 05/03/22 10:40 RMA (Rec: 05/03/22 10:42 RMA [id number]) Nutrition Malnutrition Evidence of Malnutrition Exists Yes Malnutrition (severe): Chronic Evidenced By Suboptimal Energy Intake ( Severe),Weight Loss (Severe), Physical Changes (Severe) Clinical Problem Chronic Disease or Condition Related Malnutrition Etiology Severe protein-calorie malnutrition in the context of chronic disease related to inadequate oral intake and difficulty swallowing Signs/Symptoms as evidenced by 12% unintentional wt loss x 2 months, approximately 23% wt loss per family report in unknown timeframe, BMI 20.3, inadequate oral intake meeting less than 50% estimated nutrition needs x past 2-3 months and muscle/fat wasting in the clavicle, face, orbitals, arms and legs Status Active Problem Unintended Weight Loss Etiology related to inadequate oral intake; difficulty swallowing Signs/Symptoms as evidenced by 14.6lbs (11.5% ) weight loss in ~2 months based on estimated weight of 135lbs Status Active Problem Recommendation Dietitian Recommendations/Changes Calorie Count 05/02 ~973 kcal/ 44 gm pro per recorded meal intake. Continue Regular diet with texture/consistency as per HIGHWAY MAINTENANCE TECHNICIAN . Continue milk and jello w/ meals as pt not accepting of Ensure pudding/Magic Cup. Continue 120 ml ensure plus high protein 4 times per day w / medpass. Although oral intake is improving at meals however, overall intake remains fair on average and inadequate to meet estimated nutrition needs . 3 day calorie count (04/30, , 05/02) complete with calories/protein documented as meal intake recorded by nursing. Weight / BMI Weight Weight: 68.7 kg Body Mass Index (BMI) 17.9 ABG / Lab / Microbiology Data Result Diagrams: 05/04/22 07:58 05/04/22 07:58 Laboratory: Laboratory Results - last 24 hr 05/04/22 07:58: WBC 2.0 L, RBC 2.49 L, Hgb 7.5 L, Hct 24.3 L, MCV 97.6 H, MCH 30.1, MCHC 30.9 L, RDW Std Deviation 50.6 H, RDW Coeff of Anil 14.2, Plt Count 103 L, MPV 11.4, Immature Gran % (Auto) 0.500, Neut % (Auto) 46.8 L, Lymph % (Auto) 17.1 L, [place] % (Auto) 25.1 H, Eos % (Auto) 9.5 H, Baso % (Auto) 1.0, Absolute Neuts (auto) 0.9 L, Absolute Lymphs (auto) 0.34 L, Nucleated RBC % 1.0, Differential Comment SCANNED, Diff Path Review May foll 05/04/22 07:58: Sodium 145, Potassium 4.4, Chloride 118 H, Carbon Dioxide 21.0, Anion Gap 6, BUN 30 H, Creatinine 2.03 H, Estim Creat Clear Calc 40.42, Est GFR (MDRD) Af Amer 44 L, Est GFR (MDRD) Non-Af 36 L, BUN/Creatinine Ratio 14.8, Glucose 93, Calcium 7.6 L, Magnesium 1.8 05/04/22 07:58: Phosphorus 3.9 Microbiology: Microbiology 04/24/22 14:02 Blood Culture (Wb) - Left Wrist Blood Culture - Final Staphylococcus epidermidis 04/24/22 13:00 Blood Culture (Wb) - Arm Left Blood Culture - Final Staphylococcus epidermidis Meaningful Use Info Meaningful Use Diagnoses (Choose all that apply): None applicable Discharge Plan Admission Admit Date/Time: 04/24/22 15:53 Primary Reason for Your Visit: hepatic encephalopathy Attending Provider: Ambrosio Solis Primary Care Provider: Mike Bella Consulting Providers: Hamida Cook ; Ambrosio Solis ; Jose Armando Tran Michael ; Stella Bell Discharge Orders/Prescriptions Prescriptions: New dronabinol 2.5 mg Capsule 2.5 mg PO BIDAC Qty: 10 0RF Ensure Plus High Protein 0.08 gram-1.5 kcal/mL Liquid 120 ml PO 4X/DAY Qty: 0 0RF mirtazapine 30 mg Tablet 30 mg PO QHS Qty: 0 0RF Xifaxan 550 mg Tablet 550 mg PO BID Qty: 0 0RF lactulose 20 gram/30 mL Solution 20 g PO Q4 Qty: 0 0RF tacrolimus 0.5 mg Capsule 0.5 mg PO BID Qty: 0 0RF Continued mycophenolate mofetil 500 MG tablet 500 mg PO 00,2099 Label Comments: anti rejection multivitamin Tablet 1 tab PO QHS acetaminophen [Tylenol] 325 mg Tablet 650 mg PO Q6H PRN PRN (Reason: Pain 1-10 Or Fever>100.7) Qty: 0 0RF sodium bicarbonate 650 mg tablet 1,300 mg PO TID Qty: 6 0RF Discontinued amlodipine 5 MG tablet 5 mg PO QHS Hold Instructions: Until seen again by nephrology tacrolimus 1 MG capsule 1 mg PO 899,2099 Label Comments: TAKE TWO CAPSULES BY MOUTH TWICE DAILY tacrolimus 0.5 mg capsule 0.5 mg PO 00,2099 Label Comments: take 1 capsule by mouth twice a day Referrals / Follow Up: Mike Bella MD [Primary Care Provider] - Within 2 Weeks Lexis Bruno MD [Med Staff - Consulting] - Within 1 Month Disposition Disposition (needs filled in before D/C Order can be placed): Care Home Facility Charges/Coding Visit Charges Inpatient E&M: 71002 Disch Hosp >30min
[2022-05-04 15:20] VITALS: BP 100/68; PULSE 85; RESP 18; TEMP 36.7; O2SAT 100
--- NOTE | 2022-05-04 15:42 | NURSING ---
Wheeled walker provided to patient as ordered.
[2022-05-04 16:17] LABS: CMV by PCR Negative (Negative)
[2022-05-05 15:16] LABS: Pathologist Review Reviewed
[2022-05-05 15:24] LABS: Pathologist Review Reviewed
[2022-05-06 09:31] LABS: Pathologist Review Reviewed
[2022-05-06 09:37] LABS: Pathologist Review Reviewed
== END 2022-05-04 17:16 | disposition skilled nursing facility (03) | DRG 682 ==
LOC: ED 15:25 → PCU 16:34
PROVIDERS: Family Medicine; Internal Medicine; Internal Medicine Gastroenterology; Nurse Practitioner Adult Health; Emergency Provider Emergency Medicine; PCP Family Medicine
DX: N17.9 Acute kidney failure, unspecified (principal); G92.8 Other toxic encephalopathy; E43 Unspecified severe protein-calorie malnutrition; E72.20 Disorder of urea cycle metabolism, unspecified; R18.8 Other ascites; E87.21 Acute metabolic acidosis; Z94.0 Kidney transplant status; Z68.1 Body mass index [BMI] 19.9 or less, adult; N18.32 Chronic kidney disease, stage 3b; D70.9 Neutropenia, unspecified; D63.1 Anemia in chronic kidney disease; E86.0 Dehydration; I12.9 Hypertensive chronic kidney disease with stage 1 through stage 4 chronic kidney disease, or unspecified chronic kidney disease; H55.01 Congenital nystagmus; E83.42 Hypomagnesemia; N31.2 Flaccid neuropathic bladder, not elsewhere classified; F32.A Depression, unspecified; H91.90 Unspecified hearing loss, unspecified ear; F70 Mild intellectual disabilities; R74.01 Elevation of levels of liver transaminase levels; Z79.899 Other long term (current) drug therapy; Z87.440 Personal history of urinary (tract) infections
CPT/HCPCS: 36415; 51702; 70450; 70551; 71045; 74181; 76705; 80048; 80053; 80197; 81001; 82140; 82550; 83735; 84100; 84443; 85025; 85610; 87040; 87077; 87186; 87426; 87496; 92507; 92526; 92610; 95819; 97110; 97162; 97166; 97530; 97535; 97802; 97803; 99285; J7030; A4216; J2405

== ENCOUNTER 2022-05-26 13:10 | Outpatient (RCR) | payer MEDICARE, MEDICAID, SELFPAY ==
[2022-05-26 13:37] LABS: Hematocrit 30.4 % (40-54); Hemoglobin 9.3 g/dL (13.0-16.5); Mean Corp Hgb Conc 30.6 g/dL (32-36); Mean Corpuscular Hgb 30.2 pg (27.0-32.0); Mean Corpuscular Volume 98.7 fL (80-94); Mean Platelet Vol. 11.4 fl (6.2-12.0); Platelet Count 136 K/mm3 (150-450); RBC Distribution Width CV 15.2 % (11.6-14.6); RBC Distribution Width SD 54.6 fl (35.1-43.9); Red Blood Count 3.08 M/mm3 (4.6-6.2)
[2022-05-26 13:59] LABS: Albumin, Serum 2.7 g/dL (3.2-5.0); BUN 26 mg/dL (7-18); Chloride 115 mmol/L (98-107); Creatinine, Serum 1.63 mg/dL (0.70-1.30); EST Glomerular Filtration Rate 47 mL/min (>60); Est Glom Filt Rate - Afr Amer 57 mL/min (>60); Glucose 99 mg/dL (74-106); Phosphorus 3.1 mg/dL (2.5-4.9); Potassium 4.6 mmol/L (3.5-5.1); Sodium Level 146 mmol/L (136-145)
[2022-05-29 20:26] LABS: Tacrolimus (FK506) 7.7 ng/mL (2.0-20.0)
== END 2022-05-26 15:00 | disposition home or self-care (01) ==
LOC: LAB 13:10
PROVIDERS: Family Provider Family Medicine; PCP Family Medicine; Referring Provider Internal Medicine Nephrology; Visit Provider Internal Medicine Nephrology
DX: Z94.0 Kidney transplant status (principal)
CPT/HCPCS: 36415; 80069; 80197; 82140; 85027

== ENCOUNTER 2022-06-03 07:59 | Inpatient (IN) | payer MEDICARE, SELFPAY ==
[2022-06-03] VITALS (8 sets, daily range): BP systolic 110–143; BP diastolic 67–85; PULSE 79–88; RESP 14–18; TEMP 36.6–36.9; O2SAT 98–100; BMI 20.7; BMI 19.0
--- NOTE | 2022-06-03 08:19 | RAD_ITS ---
STUDY: X-RAY CHEST REASON FOR EXAM: Male, 57 years old. ? Pneumonia TECHNIQUE: Single AP portable view of the chest. COMPARISON: Comparison is made with prior study dated 04/24/2022. FINDINGS: EKG electrodes are seen. Patchy left lower lobe infiltrate. There is no demonstrated pleural abnormality. Normal size heart. Normal mediastinum and alton. Normal visualized pulmonary arteries. There is atherosclerotic calcification of the aortic arch with tortuosity. Normal visualized thoracic spine. Normal visualized ribs, clavicles, and shoulders. There is no demonstrated abnormality of the visualized soft tissue structures of the upper abdomen. RAD/Chest 1 View (Portable) IMPRESSION: Patchy left lower lobe infiltrate. Electronically Signed: Manolo Julian MD at 9:56 EST ,
--- NOTE | 2022-06-03 08:19 | CT_ITS ---
STUDY: CT BRAIN WITHOUT CONTRAST REASON FOR EXAM: Male, 57 years old. Decreased responsiveness RADIATION DOSAGE (If Supplied By Facility): CTDIvol = ( 44.99 ) mGy, DLP = ( 812.98 ) mGycm TECHNIQUE: Transaxial CT imaging of the brain was performed without administration of intravenous contrast material. Individualized dose optimization techniques were used for this CT. COMPARISON: Comparison is made with prior examination dated 04/24/2022. FINDINGS: Normal soft tissue structures. Normal calvarium. Normal size ventricles and extra-axial spaces for the patient''s age. Normal white matter tracts of the cerebral hemispheres. Normal basal ganglia and thalami. Normal brainstem. Normal cerebellum. There is no intracranial hemorrhage. There are no findings of an acute ischemic infarction. There is partial opacification of the right maxillary sinus. Mucosal thickening along the posterior aspect of the ethmoid sinus as well as the anterior aspect of the left sphenoid sinus. CT/Brain/Head without Contrast IMPRESSION: Sinusitis. Electronically Signed: Manolo Julian MD at 9:41 EST ,
--- NOTE | 2022-06-03 08:20 | EKG12_ITS ---
Test Reason : ALT LOC Blood Pressure : / mmHG Vent. Rate : 092 BPM Atrial Rate : 092 BPM P-R Int : 140 ms QRS Dur : 082 ms QT Int : 406 ms P-R-T Axes : 043 035 052 degrees QTc Int : 502 ms Normal sinus rhythm Prolonged QT Abnormal ECG Confirmed by SUSAN MORENO, RAEANN ([id number]), writer editor MIGUEL ANGEL DEAL ([id number]) on 06/04/2022 10:03:41 AM Referred By: Confirmed By:RAEANN DAVIS MD
--- NOTE | 2022-06-03 08:24 | EDS_ITS ---
HPI History of Present Illness Chief Complaint: Alt LOC Informant: EMS and SNF Narrative Narrative: Patient is really nonverbal and not able to give me any information at this time. My understanding is although he has some mild intellectual disability he is normally alert and oriented x3 so this is a change. He was reportedly sent in for being less alert and having nystagmus which they recorded is new. 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 But the patient is less alert and responsive than normal. He is awake but he is just not interacting. No focal deficit. I have no reports of fevers chills vomiting or other specific issues. He evidently may have refused meds this morning but it sounds like that has not been his normal. Review of systems is really not able to be obtained to be on this as the patient is nonverbal. I did review our online charting from the hospital system. I reviewed his discharge note. He was admitted here in April twice. He was discharged early this month on the second or third. He evidently is just at his current nursing facility for 1 day so I do not know where he was from the beginning of May till yesterday. This patient is a complex medical history with his primary problem being kidney failure and he received a kidney transplant about 3 years ago. He evidently has not been on dialysis since. He does self catheterize and has had problems with frequent UTIs. Contact was made with his nursing facility. It sounds like he has been getting his lactulose. This may not have happened today though. Again, history and review of systems are extremely limited due to his current mental status. [facility] Medical History (Updated 06/03/22 @ 11:[address] Ronnie Simpson MD) Anemia in chronic illness Bladder dysfunction Bronchitis Chronic kidney disease, stage 3b CKD (chronic kidney disease), stage III Congenital nystagmus DVT (deep venous thrombosis) History of DVT (deep vein thrombosis) History of encephalopathy History of pulmonary embolism HTN (hypertension) Immunosuppressed status Mild intellectual disability Neurogenic bladder disorder Neutropenia Pancytopenia Pulmonary embolism Severe protein-calorie malnutrition Urinary retention Vocal cord dysfunction Home Medications mycophenolate mofetil 500 mg tablet 500 mg PO 0900,2100 Anti-Rejection 07/14/16 [History Last Taken 06/02/22] multivitamin 1 tab PO QHS supplement 02/13/22 [History Last Taken 06/02/22] acetaminophen 325 mg tablet (Tylenol) 650 mg PO Q6H PRN PRN Pain 1-10 Or Fever>100.7 #0 tabs 04/21/22 [Rx Last Taken 06/02/22] sodium bicarbonate 650 mg tablet 1,300 mg PO TID #6 tabs 04/21/22 [Rx Last Taken 06/03/22] dronabinol 2.5 mg capsule 2.5 mg PO BIDAC #10 caps 05/04/22 [Rx Last Taken 06/02/22] lactulose 20 gram/30 mL oral solution 20 g (30 mL) PO Q4 #0 mL 05/04/22 [Rx Last Taken 06/02/22] rifaximin 550 mg tablet (Xifaxan) 550 mg PO BID #0 tabs 05/04/22 [Rx Last Taken Unknown] tacrolimus 0.5 mg capsule, immediate-release 0.5 mg PO BID #0 caps 05/04/22 [Rx Last Taken 06/02/22] mirtazapine 30 mg tablet 30 mg PO QHS DEPRESSION 06/03/22 [History Last Taken 06/02/22] nut tx, lact-reduced, iron 0.09 gram-2.25 kcal/mL oral liquid (Boost VHC) 240 ml PO TID SUPPLEMENT 06/03/22 [History Last Taken 06/02/22] Allergy/AdvReac Type Severity Reaction Status Date / Time anything red AdvReac Hives Uncoded 06/03/22 08:09 Family History Mother Hypertension Father Diabetes Surgical History (Updated 06/03/22 @ 08:[address] Ronnie Simpson MD) Kidney transplant recipient S/P arteriovenous (AV) fistula creation Social History household members: none housing: [facility] Smoking Status: Never smoker second hand exposure: No alcohol intake: never substance use type: does not use caffeine: No ROS ROS ED ROS Narrative Unable to obtain review of systems other than in history of present illness due to the patient currently being nonverbal and much less alert than his normal. Neurologic Neurologic: Reports other Details: Decreased alertness and interaction. EXAM Physical Exam Narrative Exam Narrative: Patient is awake. He is looking around the room. He is sitting in bed. He does not appear to be in distress. His vitals are overall normal. HEENT: No sign of trauma. Mucous membranes are somewhat dry. I do not perceive any tenderness over the sinuses. Eyes: I do not see icterus. He does have some mild nystagmus which is reportedly chronic and found on his chart on prior visits. Neck: No pain with turning left or right. No marked JVD. Lungs are clear. He does tend to take deep breaths but I do not hear any coarse breath sounds. Occasionally he has some upper airway sounds transmitted. Heart is regular. I hear no murmur. Abdomen: Soft nontender. I do not see a PEG tube so he likely normally takes intake orally. : No notable CVA tenderness. His bladder does appear to be a little bit large on exam but I am not getting any tenderness. Extremities: No edema. He has significant venous distention from prior AV fistula placed in the right arm. He does have a palpable thrill distally in t his. Patient is awake. He responds to voice. But I cannot assess him specifically for being responsive to person place or time. I am not picking up a focal or lateralizing deficit. Const Vital Signs: 06/03/22 08:02 06/03/22 08:02 06/03/22 08:27 Temperature 98.4 F 98.4 F Temperature Source Temporal Temporal Pulse Rate 87 87 Respiratory Rate 18 18 Respiratory Pattern Kussmaul Blood Pressure 143/72 H 143/72 H Blood Pressure Mean 95 95 Pulse Ox 100 100 Oxygen Delivery Method Room Air Room Air 06/03/22 09:19 Temperature 98.0 F Temperature Source Temporal Pulse Rate 88 Respiratory Rate 16 Respiratory Pattern Blood Pressure 128/74 H Blood Pressure Mean 92 Pulse Ox 98 Oxygen Delivery Method Room Air MDM MDM MDM Narrative Medical decision making narrative: My independent interpretation of the patient's single view AP chest x-ray shows rotation. There may be few increased markings but I did not perceive them is notably different from prior. Radiology did read this as a possible left base infiltrate. CT scan of the head showed some sinusitis but no acute intracranial process. CBC shows low white count which is chronic. He also has some anemia. Minimally low platelets. Electrolytes show minimally high sodium. Creatinine is up a bit but not over his baseline. For him this is actually quite good at 1.6. Liver function test show similar levels as the past. Ammonia was a bit high at 104. Lactic acid is normal. Urine is consistent with infection showing cloudy urine with leukocyte Estrace and greater 100 white cells. With his change mental status and this urine result we did treat with antibiotics. Cultures are also sent. Some of his symptoms may also be from elevated ammonia. I did discuss case with hospitalist and the patient will be admitted. Lab Data Attestation: I reviewed the patient's lab results. Labs: Laboratory Results - last 24 hr 06/03/22 06/03/22 06/03/22 08:20 08:20 08:20 WBC 3.7 L RBC 3.46 L Hgb 10.7 L Hct 33.1 L MCV 95.7 H MCH 30.9 MCHC 32.3 RDW Std Deviation 52.5 H RDW Coeff of Anil 15.2 H Plt Count 149 L MPV 11.2 Immature Gran % (Auto) 0.500 Neut % (Auto) 65.4 Lymph % (Auto) 12.3 L Rice % (Auto) 15.8 H Eos % (Auto) 5.7 H Baso % (Auto) 0.3 Absolute Neuts (auto) 2.4 Absolute Lymphs (auto) 0.45 L Nucleated RBC % 0 Differential Comment SCANNED Diff Path Review May foll Sodium 146 H Potassium 4.1 Chloride 120 H Carbon Dioxide 15.0 L Anion Gap 11 BUN 26 H Creatinine 1.60 H Estim Creat Clear Calc 51.35 Est GFR (MDRD) Af Amer 58 L Est GFR (MDRD) Non-Af 48 L BUN/Creatinine Ratio 16.2 Glucose 108 H Lactic Acid Calcium 8.5 Total Bilirubin 1.10 H AST 53 H ALT 45 Alkaline Phosphatase 145 H Ammonia 104.0 H Total Protein 6.9 Albumin 3.2 Globulin 3.7 Albumin/Globulin Ratio 0.9 Urine Color Urine Clarity Urine pH Ur Specific [place] Urine Protein Urine Glucose (UA) Urine Ketones Urine Occult Blood Urine Nitrite Urine Bilirubin Urine Urobilinogen Ur Leukocyte Esterase Urine RBC Urine WBC Ur Squamous Epith Cells Urine Bacteria Urine Mucus 06/03/22 06/03/22 08:20 08:45 WBC RBC Hgb Hct MCV MCH MCHC RDW Std Deviation RDW Coeff of Anil Plt Count MPV Immature Gran % (Auto) Neut % (Auto) Lymph % (Auto) [place] % (Auto) Eos % (Auto) Baso % (Auto) Absolute Neuts (auto) Absolute Lymphs (auto) Nucleated RBC % Differential Comment Diff Path Review Sodium Potassium Chloride Carbon Dioxide Anion Gap BUN Creatinine Estim Creat Clear Calc Est GFR (MDRD) Af Amer Est GFR (MDRD) Non-Af BUN/Creatinine Ratio Glucose Lactic Acid 1.9 Calcium Total Bilirubin AST ALT Alkaline Phosphatase Ammonia Total Protein Albumin Globulin Albumin/Globulin Ratio Urine Color Yellow Urine Clarity Cloudy Urine pH 8.0 Ur Specific [place] 1.010 Urine Protein 100 H Urine Glucose (UA) Normal Urine Ketones Negative Urine Occult Blood 250 H Urine Nitrite Negative Urine Bilirubin Negative Urine Urobilinogen Normal Ur Leukocyte Esterase 500 H Urine RBC 0 SEEN Urine WBC >100 SEEN Ur Squamous Epith Cells 0 SEEN Urine Bacteria 2+ Urine Mucus 0 SEEN Radiography Diagnostic Testing: Clinical Impression(s) from Imaging Studies Brain CT 06/03/22 08:19 IMPRESSION: Sinusitis. Electronically Signed: Manolo Julian MD at 9:41 EST , Chest X-Ray 06/03/22 08:19 IMPRESSION: Patchy left lower lobe infiltrate. Electronically Signed: Manolo Julian MD at 9:56 EST , EKG Initial EKG: Comments: My independent interpretation of the patient's EKG done for borderline tachycardia shows a normal sinus rhythm with overall rate of 92. I do not see any clear ventricular ectopy. There is significant baseline irregularity due to trembling of the patient. This does limit evaluation. I do not see any indication of ST elevation or depression. But the MD interval, QRS duration appear to be normal. QTc may be a bit long. Discharge Plan Dx/Rx/DC Orders Clinical Impression: Acute alteration in mental status, Renal transplant recipient, Hyperammonemia, Urinary tract infection Disposition Disposition: Acute Care [facility]
[2022-06-03 08:42] LABS: Absolute Lymphocyte Count 0.45 X10^3/uL (0.83-4.51); Absolute Neutrophil Count 2.4 X10^3/uL (2.0-7.7); Basophil# 0.01 X10^3/uL; Basophil% 0.3 % (0-1); Eosinophil# 0.21 X10^3/uL; Eosinophils% 5.7 % (0-5); Hematocrit 33.1 % (40-54); Hemoglobin 10.7 g/dL (13.0-16.5); Lymphocyte # 0.45 X10^3/ul (0.83-4.51); Lymphocyte % 12.3 % (19-41); Mean Corp Hgb Conc 32.3 g/dL (32-36); Mean Corpuscular Hgb 30.9 pg (27.0-32.0); Mean Corpuscular Volume 95.7 fL (80-94); Mean Platelet Vol. 11.2 fl (6.2-12.0); Monocyte# 0.58 X10^3/uL; Monocyte% 15.8 % (0-10); NRBC Flagged by Analyzer 0 % (0-5); Neutrophil # 2.39 X10^3/uL (2.7-7.7); Neutrophil % 65.4 % (47-70); POSITIVE DIFFERENTIAL YES; Platelet Count 149 K/mm3 (150-450); RBC Distribution Width CV 15.2 % (11.6-14.6); RBC Distribution Width SD 52.5 fl (35.1-43.9); Red Blood Count 3.46 M/mm3 (4.6-6.2); White Blood Count 3.7 K/mm3 (4.4-11.0)
[2022-06-03 08:45] LABS: Differential Indicated SCAN CRITERIA MET
[2022-06-03 08:58] LABS: ALB/GLOB Ratio 0.9 RATIO (0.9-2.4); AST(SGOT) 53 U/L (15-37); Alanine Aminotransfer ALT/SGPT 45 U/L (16-61); Albumin, Serum 3.2 g/dL (3.2-5.0); Alkaline Phosphatase 145 U/L (45-117); Anion Gap 11 (5-15); BUN 26 mg/dL (7-18); BUN/Creat Ratio 16.2 RATIO (10-20); Calcium,Total 8.5 mg/dL (8.5-10.1); Chloride 120 mmol/L (98-107); EST Glomerular Filtration Rate 48 mL/min (>60); Est Glom Filt Rate - Afr Amer 58 mL/min (>60); Estimated Creatinine Clearance 51.35 ml/min; Globulin 3.7 g/dL (2.2-4.2); Glucose 108 mg/dL (74-106); Potassium 4.1 mmol/L (3.5-5.1); Protein, Total 6.9 g/dL (6.4-8.2); Sodium Level 146 mmol/L (136-145)
[2022-06-03 09:07] LABS: Mucous, Urine 0 SEEN /hpf (<or=2+); Red Blood Cells-Urine 0 SEEN /hpf (0-5); Squamous Epithelial Cells - UA 0 SEEN /hpf (0-5)
[2022-06-03 09:09] LABS: Color, Urine Yellow (Yellow); Glucose, Dipstick Normal (Normal); Ketone-Dipstick Negative (Negative); Leukocyte Esterase-Dipstick 500 /ul (Negative); Nitrite-Dipstick Negative (Negative); Occult Blood-Urine 250 /ul (Negative); Protein-Dipstick 100 mg/dl (Negative); Urine Bilirubin Dipstick Negative (Negative); Urine Clarity Cloudy (Clear); Urine Urobilinogen Normal (Normal)
[2022-06-03 09:15] LABS: Lactic Acid 1.9 mmol/L (0.4-1.9)
[2022-06-03 09:20] LABS: Bacteria 2+ /hpf (None Seen); White Blood Cells >100 SEEN /hpf (0-5)
[2022-06-03 09:35] LABS: Differential Comment SCANNED
[2022-06-03] MEDS: Ceftriaxone 1 GM/50 ML BAG IV (10:03)
--- NOTE | 2022-06-03 10:04 | NURSING ---
DR NAZANIN AVITIA
--- NOTE | 2022-06-03 11:06 | PCM.HP.STD ---
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 Sister and [id number] at bedside and report that yesterday he was in his normal health when they went to visit their mother at [facility] and that he was able to get in and out of the truck and mental status at baseline and then today when she saw him he was not responding. Patient unable to provide any other history due to mental status. Sister does note poor p.o. intake but no other relevant history. In the ED patient was found to be retaining urine and had a Ga placed with UA suggestive of UTI and 1.5 L out. Also had an ammonia over 100 with his last being normal in the 30s. He was given dose of Rocephin which did help some with mental status but he remains confused. [facility] Medical History (Updated 06/03/22 @ 11:[address] Linda Mercer MD) Anemia in chronic illness Bladder dysfunction Bronchitis Chronic kidney disease, stage 3b CKD (chronic kidney disease), stage III Congenital nystagmus DVT (deep venous thrombosis) History of DVT (deep vein thrombosis) History of encephalopathy History of pulmonary embolism HTN (hypertension) Immunosuppressed status Mild intellectual disability Neurogenic bladder disorder Neutropenia Pancytopenia Pulmonary embolism Severe protein-calorie malnutrition Urinary retention Vocal cord dysfunction Home Medications mycophenolate mofetil 500 mg tablet 500 mg PO 0900,2100 Anti-Rejection 07/14/16 [History Last Taken 06/02/22] multivitamin 1 tab PO QHS supplement 02/13/22 [History Last Taken 06/02/22] acetaminophen 325 mg tablet (Tylenol) 650 mg PO Q6H PRN PRN Pain 1-10 Or Fever>100.7 #0 tabs 04/21/22 [Rx Last Taken 06/02/22] sodium bicarbonate 650 mg tablet 1,300 mg PO TID #6 tabs 04/21/22 [Rx Last Taken 06/03/22] dronabinol 2.5 mg capsule 2.5 mg PO BIDAC #10 caps 05/04/22 [Rx Last Taken 06/02/22] lactulose 20 gram/30 mL oral solution 20 g (30 mL) PO Q4 #0 mL 05/04/22 [Rx Last Taken 06/02/22] rifaximin 550 mg tablet (Xifaxan) 550 mg PO BID #0 tabs 05/04/22 [Rx Last Taken Unknown] tacrolimus 0.5 mg capsule, immediate-release 0.5 mg PO BID #0 caps 05/04/22 [Rx Last Taken 06/02/22] mirtazapine 30 mg tablet 30 mg PO QHS DEPRESSION 06/03/22 [History Last Taken 06/02/22] nut tx, lact-reduced, iron 0.09 gram-2.25 kcal/mL oral liquid (Boost VHC) 240 ml PO TID SUPPLEMENT 06/03/22 [History Last Taken 06/02/22] Allergy/AdvReac Type Severity Reaction Status Date / Time anything red AdvReac Hives Uncoded 06/03/22 08:09 Family History Mother Hypertension Father Diabetes Surgical History (Updated 06/03/22 @ 08:[address] Ronnie Simpson MD) Kidney transplant recipient S/P arteriovenous (AV) fistula creation Social History household members: none housing: alf Smoking Status: Never smoker second hand exposure: No alcohol intake: never substance use type: does not use caffeine: No ROS ROS Narrative Unable to obtain ROS secondary to mental status Vital Signs Vital Signs Vital Signs: 06/03/22 08:02 06/03/22 08:02 06/03/22 08:27 Temperature 98.4 F 98.4 F Temperature Source Temporal Temporal Pulse Rate 87 87 Respiratory Rate 18 18 Respiratory Pattern Kussmaul Blood Pressure 143/72 H 143/72 H Blood Pressure Mean 95 95 Pulse Ox 100 100 Oxygen Delivery Method Room Air Room Air 06/03/22 09:19 Temperature 98.0 F Temperature Source Temporal Pulse Rate 88 Respiratory Rate 16 Respiratory Pattern Blood Pressure 128/74 H Blood Pressure Mean 92 Pulse Ox 98 Oxygen Delivery Method Room Air Weight Weight: 69.6 kg Body Mass Index (BMI) 20.7 Physical Exam Narrative General: Laying in bed, awake, only intermittently following commands HEENT: Atraumatic Eyes: Nystagmus observed which is chronic Neck: Supple Respiratory: Some transmitted upper airway sounds, normal respiratory effort Cardiovascular: Regular rate and rhythm GI: Soft, nontender, nondistended Extremities: No edema Musculoskeletal: Moving all extremities, fine tremor appreciated Neuro: No overt focal neurological deficits, does have a chronic nystagmus and fine tremor but was unable to further cooperate with exam Skin: Seems to have a faint red rash around upper neck without drainage Psych: Unable to cooperate secondary to mental status Results Lab / Micro Data Result Diagrams: 06/03/22 08:20 06/03/22 08:20 Labs: Laboratory Results - last 24 hr 06/03/22 08:20: WBC 3.7 L, RBC 3.46 L, Hgb 10.7 L, Hct 33.1 L, MCV 95.7 H, MCH 30.9, MCHC 32.3, RDW Std Deviation 52.5 H, RDW Coeff of Anil 15.2 H, Plt Count 149 L, MPV 11.2, Immature Gran % (Auto) 0.500, Neut % (Auto) 65.4, Lymph % (Auto) 12.3 L, [place] % (Auto) 15.8 H, Eos % (Auto) 5.7 H, Baso % (Auto) 0.3, Absolute Neuts (auto) 2.4, Absolute Lymphs (auto) 0.45 L, Nucleated RBC % 0, Differential Comment SCANNED, Diff Path Review August foll 06/03/22 08:20: Sodium 146 H, Potassium 4.1, Chloride 120 H, Carbon Dioxide 15.0 L, Anion Gap 11, BUN 26 H, Creatinine 1.60 H, Estim Creat Clear Calc 51.35, Est GFR (MDRD) Af Amer 58 L, Est GFR (MDRD) Non-Af 48 L, BUN/Creatinine Ratio 16.2, Glucose 108 H, Calcium 8.5, Total Bilirubin 1.10 H, AST 53 H, ALT 45, Alkaline Phosphatase 145 H, Total Protein 6.9, Albumin 3.2, Globulin 3.7, Albumin/Globulin Ratio 0.9 06/03/22 08:20: Ammonia 104.0 H 06/03/22 08:20: Lactic Acid 1.9 06/03/22 08:45: Urine Color Yellow, Urine Clarity Cloudy, Urine pH 8.0, Ur Specific [place] 1.010, Urine Protein 100 H, Urine Glucose (UA) Normal, Urine Ketones Negative, Urine Occult Blood 250 H, Urine Nitrite Negative, Urine Bilirubin Negative, Urine Urobilinogen Normal, Ur Leukocyte Esterase 500 H, Urine RBC 0 SEEN, Urine WBC >100 SEEN, Ur Squamous Epith Cells 0 SEEN, Urine Bacteria 2+, Urine Mucus 0 SEEN Micro: Microbiology 06/03/22 08:45 Nasal Secretion SARS-CoV-2 & FLU Antigen (Rapid) - Final Radiology Impression Brain CT 06/03/22 08:19 IMPRESSION: Sinusitis. Electronically Signed: Manolo Julian MD at 9:41 EST , Chest X-Ray 06/03/22 08:19 IMPRESSION: Patchy left lower lobe infiltrate. Electronically Signed: Manolo Julian MD at 9:56 EST , Assessment & Plan Assessment/Plan (1) Acute metabolic encephalopathy: (2) Hyperammonemia: (3) Urinary retention: (4) Congenital nystagmus: (5) Chronic kidney disease, stage 3b: (6) Acute urinary tract infection: PLAN: Plan #Acute metabolic encephalopathy Secondary to hyperammonemia and urinary tract infection Lactulose p.o., if unable to safely swallow we will add lactulose enema We will treat urinary tract infection with Rocephin and await culture and sensitivities Continue Ga Continue other home meds Tacrolimus level Nonpharmacologic measures Bedside swallow before advancing diet #Acute urinary tract infection Ga placed UA suggestive of UTI Urine culture pending Chronically self caths at home unclear if was not completely cathing or if had stopped #Hyperammonemia Ammonia 104 and previously was 30 Oral lactulose every 4, if unable to safely swallow will need lactulose enema versus NG tube Continue rifaximin #Poor p.o. 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 Continue to monitor BMP Continue tacro and ventilate We will check a.m. tacrolimus level #DVT ppx: Valerie Mercer MD Charges/Coding Visit Charges Inpatient E&M: 34939 Init Hosp L2
--- NOTE | 2022-06-03 11:24 | NURSING ---
Minor BACK UTI, HYPERAMMONEMIA
[2022-06-03] MEDS: 0.9% Normal Saline 1,000 ML 75 ML IV (14:01)
[2022-06-03] MEDS: Lactulose 20 GM/30 ML UDC PO ×3 (15:55→21:54)
[2022-06-03] MEDS: Sodium Bicarbonate 650 MG Tablet 1300 MG PO ×2 (15:56→21:54)
[2022-06-03] MEDS: Dronabinol 2.5 MG Capsule PO (16:11)
[2022-06-03] MEDS: Ensure Plus High Protein 120 ML LIQUID PO ×2 (19:07→21:57)
[2022-06-03] MEDS: rifAXIMin 550 MG Tablet PO (21:53)
[2022-06-03] MEDS: Tacrolimus 0.5 MG Capsule PO (21:53)
[2022-06-03] MEDS: Mirtazapine 30 MG Tablet PO (21:54)
[2022-06-03] MEDS: Mycophenolate Mofetil 250 MG Capsule 500 MG PO (21:54)
[2022-06-03] MEDS: MELATONIN 10 MG TABLET PO (21:54)
[2022-06-04] MEDS: Lactulose 20 GM/30 ML UDC PO ×6 (01:03→22:25)
[2022-06-04] MEDS: 0.9% Normal Saline 1,000 ML 75 ML IV (01:05)
[2022-06-04 03:40] VITALS: BP 124/79; PULSE 81; RESP 18; TEMP 36.6; O2SAT 97
[2022-06-04 05:00] VITALS: BP 124/79; PULSE 81; RESP 18; TEMP 36.7; O2SAT 97
[2022-06-04] MEDS: Sodium Bicarbonate 650 MG Tablet 1300 MG PO ×3 (05:23→22:25)
[2022-06-04] MEDS: Dronabinol 2.5 MG Capsule PO ×2 (05:28→17:02)
[2022-06-04 06:33] LABS: Absolute Lymphocyte Count 0.55 X10^3/uL (0.83-4.51); Absolute Neutrophil Count 2.1 X10^3/uL (2.0-7.7); Basophil# 0.03 X10^3/uL; Basophil% 0.8 % (0-1); Eosinophil# 0.46 X10^3/uL; Eosinophils% 12.2 % (0-5); Hematocrit 30.5 % (40-54); Hemoglobin 9.7 g/dL (13.0-16.5); Lymphocyte # 0.55 X10^3/ul (0.83-4.51); Lymphocyte % 14.6 % (19-41); Mean Corp Hgb Conc 31.8 g/dL (32-36); Mean Corpuscular Hgb 30.8 pg (27.0-32.0); Mean Corpuscular Volume 96.8 fL (80-94); Mean Platelet Vol. 11.1 fl (6.2-12.0); Monocyte# 0.61 X10^3/uL; Monocyte% 16.2 % (0-10); NRBC Flagged by Analyzer 0 % (0-5); Neutrophil % 55.7 % (47-70); POSITIVE DIFFERENTIAL YES; Platelet Count 125 K/mm3 (150-450); RBC Distribution Width CV 15.4 % (11.6-14.6); RBC Distribution Width SD 54.4 fl (35.1-43.9); Red Blood Count 3.15 M/mm3 (4.6-6.2); White Blood Count 3.8 K/mm3 (4.4-11.0)
[2022-06-04 06:39] LABS: Differential Indicated SCAN CRITERIA MET
[2022-06-04 07:18] LABS: ALB/GLOB Ratio 0.8 RATIO (0.9-2.4); AST(SGOT) 49 U/L (15-37); Alanine Aminotransfer ALT/SGPT 41 U/L (16-61); Albumin, Serum 2.7 g/dL (3.2-5.0); Alkaline Phosphatase 130 U/L (45-117); Anion Gap 11 (5-15); BUN 26 mg/dL (7-18); BUN/Creat Ratio 16.1 RATIO (10-20); Calcium,Total 8.1 mg/dL (8.5-10.1); Chloride 125 mmol/L (98-107); Creatinine, Serum 1.61 mg/dL (0.70-1.30); EST Glomerular Filtration Rate 48 mL/min (>60); Est Glom Filt Rate - Afr Amer 58 mL/min (>60); Estimated Creatinine Clearance 49.86 ml/min; Globulin 3.3 g/dL (2.2-4.2); Glucose 113 mg/dL (74-106); Potassium 3.7 mmol/L (3.5-5.1); Sodium Level 149 mmol/L (136-145)
[2022-06-04 07:22] LABS: Crenated RBC 1+; Ovalocyte 1+; Schistocytes RARE
--- NOTE | 2022-06-04 09:03 | PCM.PN.HOSP ---
Subjective Subjective Much more awake and conversive today, was hungry and wondering when he could eat Objective Data Objective Data Vital Signs: Vital Signs Temp Pulse Resp BP Pulse Ox O2 Del Method 98.0 F 81 18 124/79 H 97 Room Air 06/04/22 05:00 06/04/22 05:00 06/04/22 05:00 06/04/22 05:00 06/04/22 05:00 06/04/22 05:00 Oxygen Delivery Method Room Air Weight: 68 kg Body Mass Index (BMI) 19.0 Intake & Output: Intake and Output for Last 24 Hours 06/02/22 06/03/22 06/04/22 23:59 23:59 23:59 Intake Total 410 / 630 1270 / 1270 Output Total 300 / 850 875 / 875 Balance 110 / -220 395 / 395 Lab / Micro Data Result Diagrams: 06/04/22 06:09 06/04/22 06:09 Labs: Laboratory Results - last 24 hr 06/03/22 08:20: Differential Comment SCANNED, Diff Path Review August06/03/22 08:20: Ammonia 104.0 H 06/03/22 08:20: Lactic Acid 1.9 06/03/22 08:45: Urine Color Yellow, Urine Clarity Cloudy, Urine pH 8.0, Ur Specific [place] 1.010, Urine Protein 100 H, Urine Glucose (UA) Normal, Urine Ketones Negative, Urine Occult Blood 250 H, Urine Nitrite Negative, Urine Bilirubin Negative, Urine Urobilinogen Normal, Ur Leukocyte Esterase 500 H, Urine RBC 0 SEEN, Urine WBC >100 SEEN, Ur Squamous Epith Cells 0 SEEN, Urine Bacteria 2+, Urine Mucus 0 SEEN 06/04/22 06:09: WBC 3.8 L, RBC 3.15 L, Hgb 9.7 L, Hct 30.5 L, MCV 96.8 H, MCH 30.8, MCHC 31.8 L, RDW Std Deviation 54.4 H, RDW Coeff of Anil 15.4 H, Plt Count 125 L, MPV 11.1, Immature Gran % (Auto) 0.500, Neut % (Auto) 55.7, Lymph % (Auto) 14.6 L, [place] % (Auto) 16.2 H, Eos % (Auto) 12.2 H, Baso % (Auto) 0.8, Absolute Neuts (auto) 2.1, Absolute Lymphs (auto) 0.55 L, Nucleated RBC % 0, Diff Path Review May foll, Ovalocytes 1+, Crenated Cell 1+, Schistocytes RARE 06/04/22 06:09: Sodium 149 H, Potassium 3.7, Chloride 125 H, Carbon Dioxide 13.0 L, Anion Gap 11, BUN 26 H, Creatinine 1.61 H, Estim Creat Clear Calc 49.86, Est GFR (MDRD) Af Amer 58 L, Est GFR (MDRD) Non-Af 48 L, BUN/Creatinine Ratio 16.1, Glucose 113 H, Calcium 8.1 L, Total Bilirubin 1.20 H, AST 49 H, ALT 41, Alkaline Phosphatase 130 H, Total Protein 6.0 L, Albumin 2.7 L, Globulin 3.3, Albumin/Globulin Ratio 0.8 L Micro: Microbiology 06/03/22 08:20 Blood Culture (Wb) - Left Wrist Blood Culture - Preliminary 06/03/22 08:45 Nasal Secretion SARS-CoV-2 & FLU Antigen (Rapid) - Final Radiography Diagnostic Testing: Radiology Impression Brain CT 06/03/22 08:19 IMPRESSION: Sinusitis. Electronically Signed: Manolo Julian MD at 9:41 EST , Chest X-Ray 06/03/22 08:19 IMPRESSION: Patchy left lower lobe infiltrate. Electronically Signed: Manolo Julian MD at 9:56 EST , Physical Exam Narrative General: Alert, no apparent distress HEENT: Atraumatic Eyes: Nystagmus noted which is congenital Neck: Supple Respiratory: Clear to auscultation bilaterally, normal respiratory effort Cardiovascular: Regular rate and rhythm GI: Soft, nontender, nondistended Extremities: No edema Musculoskeletal: Moving all extremities Neuro: No overt focal neurological deficits Skin: Slight rash on neck more faint today Psych: Cooperative Assessment & Plan Assessment/Plan (1) Acute metabolic encephalopathy: (2) Hyperammonemia: (3) Urinary retention: (4) Congenital nystagmus: (5) Chronic kidney disease, stage 3b: (6) Acute urinary tract infection: PLAN: Plan #Acute metabolic encephalopathy Secondary to hyperammonemia and urinary tract infection Lactulose p.o., if unable to safely swallow we will add lactulose enema We will treat urinary tract infection with Rocephin and await culture and sensitivities Continue Ga Continue other home meds Tacrolimus level Nonpharmacologic measures Bedside swallow before advancing diet 2/2: Passed bedside swallow, significantly improved and mental status #Acute urinary tract infection Ga placed UA suggestive of UTI Urine culture pending Chronically self caths at home unclear if was not completely cathing or if had stopped 2/2: Continue Rocephin, urine culture growing gram-positive cocci possible enteric coccus, he is improving on Rocephin still continues antibiotic this time. 1 out of 2 blood cultures positive for Staph epidermidis which, while usually contaminant, is noted to have been 2 out of 2 on blood cultures and April with the same resistance pattern raising suspicion for actual pathogenic infection. We will consult infectious disease #Hyperammonemia Ammonia 104 and previously was 30 Oral lactulose every 4, if unable to safely swallow will need lactulose enema versus NG tube Continue rifaximin 2/2: Continue lactulose, mental status much improved #Non-anion gap metabolic acidosis Hyperchloremic, in part exacerbated by normal saline with poor p.o. intake Ideally would use LR due to its electrolyte make up however this is incompatible with Rocephin. Given that the Rocephin is every 24 we will give 500 LR bolus now and then give half-normal saline overnight. #Poor p.o. 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 Continue to monitor BMP Continue tacro and ventilate We will check a.m. tacrolimus level 2/2: Has remained stable #DVT ppx: Valerie Mercer MD Time spent in the patient's overall evaluation,decision-making process, review of diagnostic data, adjustment of management, discussion with other providers, nursing nursing and ancillary staff involved in patient's care documentation, 30 minutes Charges/Coding Visit Charges Inpatient E&M: 79233 Subs Hosp L2
--- NOTE | 2022-06-04 10:32 | CASEMGMT ---
Patient is from [place]. SW sent updates to [place]. Patient does not require prior authorization before he can return per [place] at [place]. Plan: d/c back to [place] when medically ready. Anna KING
[2022-06-04] MEDS: Ceftriaxone 1 GM/50 ML BAG IV (10:58)
[2022-06-04] MEDS: Ensure Plus High Protein 120 ML LIQUID PO ×4 (11:05→22:35)
[2022-06-04] MEDS: Mycophenolate Mofetil 250 MG Capsule 500 MG PO ×2 (11:05→22:25)
[2022-06-04] MEDS: Enoxaparin 40 MG/0.4 ML Syringe SC (11:06)
[2022-06-04] MEDS: Tacrolimus 0.5 MG Capsule PO ×2 (11:06→22:25)
[2022-06-04 11:37] VITALS: BP 136/87; PULSE 81; RESP 16; TEMP 36.2; O2SAT 100
[2022-06-04] MEDS: rifAXIMin 550 MG Tablet PO ×2 (13:17→22:25)
--- NOTE | 2022-06-04 13:22 | CASEMGMT ---
STUART was informed that patient's family may not want Skyler to return to [place]. Patient's brother Alejo is returning to the [place] today. STUART called patient's sister, Chandrakant as patient's mom is currently in a shelter. Chandrakant said that she has to talk with Alejo about that. STUART let her know patient is not ready for discharge today. Chandrakant said right now as it stands yes he will return to [facility] [place], but that could change after she talks with Alejo. STUART told her SW can follow up tomorrow. Anna Kirby LOBSTER CATCHER CHRISTINE
--- NOTE | 2022-06-04 15:57 | CHAPLAIN ---
Type of Pastoral Visit _x__ Initial Visit ___ Follow-up Visit ___ On-call Visit ___ General Patient Visit ___ Spiritual Assessment ___ Family Conference ___ Bereavement ___ Rapid Response ___ Code Blue ___ Other (describe below) Pastoral Care Referral From _x__ Patient ___ Family ___ Nurse ___ Physician ___ Web Application Dev Specialist ___ Life Skills Coordinator ___ Other (describe below) Sacrament/Intervention _x__ Active listening ___ Anointing ___ Zoroastrian ___ Bereavement ___ Communion ___ Alma exploration ___ ___ Life review _x__ Prayer ___ Reconciliation ___ Sacrament of Sick ___ Supportive presence ___ Wedding ___ Other (describe below) Pastoral Comments patient has been seen before in previous admissions; pt is alert and had just finished eating his soft lunch; pt is very focused on eating and asks for apple pie; pt is not given regular food at this time so this field cane scaler helper declined the request; pt does have ice cream and wants it given to him to eat; same is given after a call to RN for permission; pt continues to talk about apple pie; pt did welcome a prayer
[2022-06-04 17:00] VITALS: BP 127/82; PULSE 88; RESP 16; TEMP 36.7; O2SAT 100
[2022-06-04] MEDS: 0.9% Saline Lock 10 ML Syringe IV (18:50)
[2022-06-04] MEDS: LACTATED RINGERS 500 ML 999 ML IV (19:02)
[2022-06-04] MEDS: 0.45% Normal Saline 1,000 ML 75 ML IV (19:44)
[2022-06-04 22:25] VITALS: BP 106/53; PULSE 89; RESP 18; TEMP 37.3; O2SAT 97
[2022-06-04] MEDS: MELATONIN 10 MG TABLET PO (22:25)
[2022-06-04] MEDS: Mirtazapine 30 MG Tablet PO (22:25)
[2022-06-04 23:00] VITALS: BP 106/53; PULSE 89; RESP 18; TEMP 37.3; O2SAT 97
[2022-06-05 03:47] VITALS: BP 109/65; PULSE 86; RESP 18; TEMP 36.6; O2SAT 98
[2022-06-05] MEDS: Lactulose 20 GM/30 ML UDC PO ×6 (03:48→20:31)
[2022-06-05 05:00] VITALS: BP 109/65; PULSE 86; RESP 18; TEMP 36.6; O2SAT 95
[2022-06-05 05:57] LABS: Absolute Lymphocyte Count 0.59 X10^3/uL (0.83-4.51); Absolute Neutrophil Count 1.7 X10^3/uL (2.0-7.7); Basophil# 0.04 X10^3/uL; Basophil% 1.2 % (0-1); Eosinophil# 0.47 X10^3/uL; Eosinophils% 13.9 % (0-5); Hematocrit 28.2 % (40-54); Hemoglobin 9.1 g/dL (13.0-16.5); Lymphocyte # 0.59 X10^3/ul (0.83-4.51); Lymphocyte % 17.4 % (19-41); Mean Corp Hgb Conc 32.3 g/dL (32-36); Mean Corpuscular Hgb 31.2 pg (27.0-32.0); Mean Corpuscular Volume 96.6 fL (80-94); Mean Platelet Vol. 11.8 fl (6.2-12.0); Monocyte# 0.55 X10^3/uL; Monocyte% 16.2 % (0-10); NRBC Flagged by Analyzer 0 % (0-5); Neutrophil # 1.72 X10^3/uL (2.7-7.7); Neutrophil % 50.7 % (47-70); POSITIVE DIFFERENTIAL YES; Platelet Count 130 K/mm3 (150-450); RBC Distribution Width CV 15.1 % (11.6-14.6); RBC Distribution Width SD 53.1 fl (35.1-43.9); Red Blood Count 2.92 M/mm3 (4.6-6.2); White Blood Count 3.4 K/mm3 (4.4-11.0)
[2022-06-05] MEDS: Sodium Bicarbonate 650 MG Tablet 1300 MG PO ×3 (06:05→20:32)
[2022-06-05] MEDS: Dronabinol 2.5 MG Capsule PO ×2 (06:05→16:32)
[2022-06-05 06:07] LABS: Differential Indicated SCAN CRITERIA MET
[2022-06-05 06:20] LABS: Differential Comment SCANNED
[2022-06-05 06:33] LABS: ALB/GLOB Ratio 0.8 RATIO (0.9-2.4); AST(SGOT) 48 U/L (15-37); Alanine Aminotransfer ALT/SGPT 40 U/L (16-61); Albumin, Serum 2.4 g/dL (3.2-5.0); Alkaline Phosphatase 122 U/L (45-117); Anion Gap 10 (5-15); BUN 27 mg/dL (7-18); BUN/Creat Ratio 19.6 RATIO (10-20); Calcium,Total 7.7 mg/dL (8.5-10.1); Chloride 120 mmol/L (98-107); Creatinine, Serum 1.38 mg/dL (0.70-1.30); EST Glomerular Filtration Rate 57 mL/min (>60); Est Glom Filt Rate - Afr Amer 69 mL/min (>60); Estimated Creatinine Clearance 58.28 ml/min; Globulin 3.1 g/dL (2.2-4.2); Glucose 83 mg/dL (74-106); Potassium 4.2 mmol/L (3.5-5.1); Protein, Total 5.5 g/dL (6.4-8.2); Sodium Level 145 mmol/L (136-145)
--- NOTE | 2022-06-05 08:31 | PN.HOSP_ITS ---
Subjective Subjective Still more awake and alert, reports feeling better overall Objective Data Objective Data Vital Signs: Vital Signs Temp Pulse Resp BP Pulse Ox O2 Del Method 97.9 F 86 18 109/65 95 Room Air 06/05/22 05:00 06/05/22 05:00 06/05/22 05:00 06/05/22 05:00 06/05/22 05:00 06/05/22 05:00 Oxygen Delivery Method Room Air Weight: 68.13 kg Body Mass Index (BMI) 19.0 Intake & Output: Intake and Output for Last 24 Hours 06/03/22 06/04/22 06/05/22 23:59 23:59 23:59 Intake Total 410 / 630 3518.75 / 3758.75 480 / 480 Output Total 300 / 850 1575 / 1875 650 / 650 Balance 110 / -220 1943.75 / 1883.75 -170 / -170 Lab / Micro Data Result Diagrams: 06/05/22 04:27 06/05/22 04:27 Labs: Laboratory Results - last 24 hr 06/05/22 04:27: WBC 3.4 L, RBC 2.92 L, Hgb 9.1 L, Hct 28.2 L, MCV 96.6 H, MCH 31.2, MCHC 32.3, RDW Std Deviation 53.1 H, RDW Coeff of Anil 15.1 H, Plt Count 130 L, MPV 11.8, Immature Gran % (Auto) 0.600, Neut % (Auto) 50.7, Lymph % (Auto) 17.4 L, Weber % (Auto) 16.2 H, Eos % (Auto) 13.9 H, Baso % (Auto) 1.2 H, Absolute Neuts (auto) 1.7 L, Absolute Lymphs (auto) 0.59 L, Nucleated RBC % 0, D ifferential Comment SCANNED, Diff Path Review August06/05/22 04:27: Sodium 145, Potassium 4.2, Chloride 120 H, Carbon Dioxide 15.0 L , Anion Gap 10, BUN 27 H, Creatinine 1.38 H, Estim Creat Clear Calc 58.28, Est GFR (MDRD) Af Amer 69, Est GFR (MDRD) Non-Af 57 L, BUN/Creatinine Ratio 19.6, Glucose 83, Calcium 7.7 L, Total Bilirubin 0.70, AST 48 H, ALT 40, Alkaline Phosphatase 122 H, Total Protein 5.5 L, Albumin 2.4 L, Globulin 3.1, Albumin/Globulin Ratio 0.8 L Micro: Microbiology 06/03/22 08:45 Blood Culture (Wb) - Left Hand Blood Culture - Preliminary No growth in 48 hours. 06/03/22 08:20 Blood Culture (Wb) - Left Wrist Bacteria Detection (PCR) - Final Staphylococcus epidermidis 06/03/22 08:20 Blood Culture (Wb) - Left Wrist Blood Culture - Preliminary Coag Negative Staph 06/03/22 08:45 Urine Catheter - Catheter Urine Culture - Final Vancomycin Resist. E. faecium 06/03/22 08:45 Nasal Secretion SARS-CoV-2 & FLU Antigen (Rapid) - Final Physical Exam Narrative General: Alert, no apparent distress HEENT: Atraumatic Eyes: Nystagmus noted which is congenital Neck: Supple Respiratory: Clear to auscultation bilaterally, normal respiratory effort Cardiovascular: Regular rate and rhythm GI: Soft, nontender, nondistended Extremities: No edema Musculoskeletal: Moving all extremities Neuro: No overt focal neurological deficits Skin: Slight rash on neck faint Psych: Cooperative Assessment & Plan Assessment/Plan (1) Acute metabolic encephalopathy: (2) Hyperammonemia: (3) Urinary retention: (4) Congenital nystagmus: (5) Chronic kidney disease, stage 3b: (6) Acute urinary tract infection: PLAN: Plan #Acute urinary tract infection Ga placed UA suggestive of UTI Urine culture pending Chronically self caths at home unclear if was not completely cathing or if had stopped 2/2: Continue Rocephin, urine culture growing gram-positive cocci possible enteric coccus, he is improving on Rocephin still continues antibiotic this time. 1 out of 2 blood cultures positive for Staph epidermidis which, while usually contaminant, is noted to have been 2 out of 2 on blood cultures and April with the same resistance pattern raising suspicion for actual pathogenic infection. We will consult infectious disease 2/3: Urine culture growing VRE, infectious disease consulted, Ga still in place #Staph epidermidis in blood Usually 1 out of 2 is contamination and presently 102 blood cultures growing Staph epidermidis however on 04/24 he grew 2 out of 2 with Staph epidermidis Appreciate ID recommendations #Acute metabolic encephalopathy Secondary to hyperammonemia and urinary tract infection Lactulose p.o., if unable to safely swallow we will add lactulose enema We will treat urinary tract infection with Rocephin and await culture and sensitivities Continue Ga Continue other home meds Tacrolimus level Nonpharmacologic measures Bedside swallow before advancing diet 2/2: Passed bedside swallow, significantly improved and mental status 2/3: Continues to improve #Hyperammonemia Ammonia 104 and previously was 30 Oral lactulose every 4, if unable to safely swallow will need lactulose enema versus NG tube Continue rifaximin 2/2: Continue lactulose, mental status much improved 2/3: We will continue to monitor clinically and continue lactulose #Non-anion gap metabolic acidosis Hyperchloremic, in part exacerbated by normal saline with poor p.o. intake Ideally would use LR due to its electrolyte make up however this is incompatible with Rocephin. Given that the Rocephin is every 24 we will give 500 LR bolus now and then give half-normal saline overnight. : Present but improved compared to yesterday Kidney function also improved, sodium normalized #Poor p.o. 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 Continue to monitor BMP Continue tacro and ventilate We will check a.m. tacrolimus level 2/2: Has remained stable #DVT ppx: Lovenox Linda Mercer MD Time spent in the patient's overall evaluation,decision-making process, review of diagnostic data, adjustment of management, discussion with other providers, nursing nursing and ancillary staff involved in patient's care documentation, 30 minutes Charges/Coding Visit Charges Inpatient E&M: 28560 Subs Hosp L2
[2022-06-05 09:43] LABS: Pathologist Review Reviewed
[2022-06-05 09:56] LABS: Pathologist Review Reviewed
[2022-06-05 10:03] VITALS: BP 120/79; PULSE 83; RESP 18; TEMP 36.9; O2SAT 100
[2022-06-05] MEDS: rifAXIMin 550 MG Tablet PO ×2 (10:09→20:32)
[2022-06-05] MEDS: Tacrolimus 0.5 MG Capsule PO ×2 (10:09→20:34)
[2022-06-05] MEDS: Mycophenolate Mofetil 250 MG Capsule 500 MG PO ×2 (10:09→20:33)
[2022-06-05] MEDS: Ensure Plus High Protein 120 ML LIQUID PO ×3 (10:09→18:04)
[2022-06-05] MEDS: Enoxaparin 40 MG/0.4 ML Syringe SC (10:12)
[2022-06-05] MEDS: Ceftriaxone 1 GM/50 ML BAG IV (10:17)
--- NOTE | 2022-06-05 12:17 | CASEMGMT ---
Social Work Telephone call to patient sister, Chandrakant (HCPOA). This director of social services inquired about discharge plan for patient as it was brought to social work attention that family was not sure about patient returning to [facility]. Chandrakant reports to have talked with family and plan is for patient to return to [facility] for now. PLAN: Return to [facility] under [facility] care. Emma ASHTON, MARTHA
--- NOTE | 2022-06-05 14:26 | CON.PCM.ID_ITS ---
Assessment & Plan Assessment/Plan (1) Urinary tract infection: PLAN: VRE uti with h/o kidney transplant. On MMF and tacro. Cr improved. Consider checking tacro level here and/or consulting nephrology to help with immunosuppression management. On ceftriaxone. With growth of VRE, will change to dapto to see if this helps. Avoiding linezolid at this time due to risk of serotonin syndrome with remeron and due to his pancytopenia. Will follow, thank you (2) Renal transplant recipient: HPI Consult Data Date of Consult: 06/05/22 HPI Narrative Reason for Consultation: uti HPI Narrative: ROOSEVELT GARCIA, is a 57 M with intellectual disability, CKD s/p kidney transplant 2016, self caths at baseline, presented 06/03 with one day of fatigue, altered mental status at [facility]. Admitted here from ED, put on ceftriaxone for uti. Some improvement here. Pt unable to provide history or ROS due to mental status. [facility] Medical History Anemia in chronic illness Bladder dysfunction Bronchitis Chronic kidney disease, stage 3b CKD (chronic kidney disease), stage III Congenital nystagmus DVT (deep venous thrombosis) History of DVT (deep vein thrombosis) History of encephalopathy History of pulmonary embolism HTN (hypertension) Immunosuppressed status Mild intellectual disability Neurogenic bladder disorder Neutropenia Pancytopenia Pulmonary embolism Severe protein-calorie malnutrition Urinary retention Vocal cord dysfunction Home Medications mycophenolate mofetil 500 mg tablet 500 mg PO 0900,2100 Anti-Rejection 07/14/16 [History Last Taken 06/02/22] multivitamin 1 tab PO QHS supplement 02/13/22 [History Last Taken 06/02/22] acetaminophen 325 mg tablet (Tylenol) 650 mg PO Q6H PRN PRN Pain 1-10 Or Fever >100.7 #0 tabs 04/21/22 [Rx Last Taken 06/02/22] sodium bicarbonate 650 mg tablet 1,300 mg PO TID #6 tabs 04/21/22 [Rx Last Taken 06/03/22] dronabinol 2.5 mg capsule 2.5 mg PO BIDAC #10 caps 05/04/22 [Rx Last Taken 06/02/22] lactulose 20 gram/30 mL oral solution 20 g (30 mL) PO Q4 #0 mL 05/04/22 [Rx Last Taken 06/02/22] rifaximin 550 mg tablet (Xifaxan) 550 mg PO BID #0 tabs 05/04/22 [Rx Last Taken Unknown] tacrolimus 0.5 mg capsule, immediate-release 0.5 mg PO BID #0 caps 05/04/22 [Rx Last Taken 06/02/22] mirtazapine 30 mg tablet 30 mg PO QHS DEPRESSION 06/03/22 [History Last Taken 06/02/22] nut tx, lact-reduced, iron 0.09 gram-2.25 kcal/mL oral liquid (Boost VHC) 240 ml PO TID SUPPLEMENT 06/03/22 [History Last Taken 06/02/22] Allergy/AdvReac Type Severity Reaction Status Date / Time anything red AdvReac Hives Uncoded 06/03/22 08:09 Family History Mother Hypertension Father Diabetes Surgical History Kidney transplant recipient S/P arteriovenous (AV) fistula creation Social History household members: none housing: retirement Smoking Status: Never smoker second hand exposure: No alcohol intake: never substance use type: does not use caffeine: No Physical Exam Const no apparent distress General Appearance: lethargic HEENT normocephalic and head/scalp atraumatic Eyes PERRL Neck supple and No nodes Resp normal air movement and clear to auscultation bilaterally Cardio regular rate and regular rhythm GI soft to palpation, non-tender and non-distended Extremity General Extremity: Negative for edema Skin no rashes or lesions noted Neuro no focal motor deficits Lab / Micro Data Attestation: I reviewed the patient's lab results. Result Diagrams: 06/05/22 04:27 06/05/22 04:27 Labs: Laboratory Results - last 24 hr 06/03/22 08:20: Diff Path Review Reviewed 06/04/22 06:09: Diff Path Review Reviewed 06/05/22 04:27: WBC 3.4 L, RBC 2.92 L, Hgb 9.1 L, Hct 28.2 L, MCV 96.6 H, MCH 31.2, MCHC 32.3, RDW Std Deviation 53.1 H, RDW Coeff of Anil 15.1 H, Plt Count 130 L, MPV 11.8, Immature Gran % (Auto) 0.600, Neut % (Auto) 50.7, Lymph % (Auto) 17.4 L, Foster % (Auto) 16.2 H, Eos % (Auto) 13.9 H, Baso % (Auto) 1.2 H, Absolute Neuts (auto) 1.7 L, Absolute Lymphs (auto) 0.59 L, Nucleated RBC % 0, Differential Comment SCANNED, Diff Path Review August foll 06/05/22 04:27: Sodium 145, Potassium 4.2, Chloride 120 H, Carbon Dioxide 15.0 L , Anion Gap 10, BUN 27 H, Creatinine 1.38 H, Estim Creat Clear Calc 58.28, Est GFR (MDRD) Af Amer 69, Est GFR (MDRD) Non-Af 57 L, BUN/Creatinine Ratio 19.6, Glucose 83, Calcium 7.7 L, Total Bilirubin 0.70, AST 48 H, ALT 40, Alkaline Phosphatase 122 H, Total Protein 5.5 L, Albumin 2.4 L, Globulin 3.1, A lbumin/Globulin Ratio 0.8 L Micro: Microbiology 06/03/22 08:45 Blood Culture (Wb) - Left Hand Blood Culture - Preliminary No growth in 48 hours. 06/03/22 08:20 Blood Culture (Wb) - Left Wrist Bacteria Detection (PCR) - Final Staphylococcus epidermidis 06/03/22 08:20 Blood Culture (Wb) - Left Wrist Blood Culture - Preliminary Coag Negative Staph 06/03/22 08:45 Urine Catheter - Catheter Urine Culture - Final Vancomycin Resist. E. faecium
--- NOTE | 2022-06-05 14:26 | CASEMGMT ---
Social Work Updated by Dr. Mercer that patient might be cleared for discharge over the weekend. Green sheet placed on chart. This hospital social worker provided [facility] [place] with clinical updated including PT/OT notes via [facility]. [facility] updated that patient might be cleared for discharge over the weekend. PLAN: [facility], intermediate level of care. Emma ASHTON, MARTHA
[2022-06-05] MEDS: 0.9% Saline Lock 10 ML Syringe IV (16:31)
[2022-06-05 16:34] VITALS: BP 116/73; PULSE 88; RESP 17; TEMP 36.8; O2SAT 98
[2022-06-05] MEDS: MELATONIN 10 MG TABLET PO (20:32)
[2022-06-05 20:33] LABS: Tacrolimus (FK506) 7.3 ng/mL (2.0-20.0)
[2022-06-05] MEDS: Mirtazapine 30 MG Tablet PO (20:33)
[2022-06-05 20:42] VITALS: BP 136/84; PULSE 92; RESP 18; TEMP 37.1; O2SAT 99
[2022-06-05] MEDS: Menthol/Lanolin/Calamine/Znox 113 GM Tube 1 APPLIC TOPICAL (22:39)
[2022-06-05 23:00] VITALS: BP 136/84; PULSE 92; RESP 18; TEMP 37.1; O2SAT 99
[2022-06-06] VITALS (9 sets, daily range): BP systolic 108–126; BP diastolic 60–82; PULSE 81–88; RESP 16–18; TEMP 36.7–36.9; O2SAT 96–99
[2022-06-06] MEDS: Lactulose 20 GM/30 ML UDC PO ×5 (06:03→23:18)
[2022-06-06] MEDS: Sodium Bicarbonate 650 MG Tablet 1300 MG PO ×3 (06:03→21:17)
[2022-06-06] MEDS: Dronabinol 2.5 MG Capsule PO ×2 (06:07→16:39)
[2022-06-06 06:56] LABS: Absolute Lymphocyte Count 0.52 X10^3/uL (0.83-4.51); Absolute Neutrophil Count 1.6 X10^3/uL (2.0-7.7); Basophil# 0.03 X10^3/uL; Basophil% 0.9 % (0-1); Eosinophil# 0.48 X10^3/uL; Eosinophils% 14.9 % (0-5); Hematocrit 29.7 % (40-54); Hemoglobin 9.2 g/dL (13.0-16.5); Lymphocyte # 0.52 X10^3/ul (0.83-4.51); Lymphocyte % 16.1 % (19-41); Mean Corpuscular Hgb 30.8 pg (27.0-32.0); Mean Corpuscular Volume 99.3 fL (80-94); Mean Platelet Vol. 11.9 fl (6.2-12.0); Monocyte# 0.52 X10^3/uL; Monocyte% 16.1 % (0-10); NRBC Flagged by Analyzer 0 % (0-5); Neutrophil # 1.64 X10^3/uL (2.7-7.7); Neutrophil % 51.1 % (47-70); POSITIVE DIFFERENTIAL YES; Platelet Count 141 K/mm3 (150-450); RBC Distribution Width CV 14.6 % (11.6-14.6); RBC Distribution Width SD 52.7 fl (35.1-43.9); Red Blood Count 2.99 M/mm3 (4.6-6.2); White Blood Count 3.2 K/mm3 (4.4-11.0)
[2022-06-06 07:00] LABS: Differential Indicated SCAN CRITERIA MET
[2022-06-06 07:24] LABS: Differential Comment SCANNED
[2022-06-06 07:31] LABS: Anion Gap 8 (5-15); BUN 23 mg/dL (7-18); BUN/Creat Ratio 17.7 RATIO (10-20); Calcium,Total 7.8 mg/dL (8.5-10.1); Chloride 116 mmol/L (98-107); EST Glomerular Filtration Rate 61 mL/min (>60); Est Glom Filt Rate - Afr Amer 74 mL/min (>60); Estimated Creatinine Clearance 62.57 ml/min; Glucose 88 mg/dL (74-106); Potassium 4.1 mmol/L (3.5-5.1); Sodium Level 141 mmol/L (136-145)
--- NOTE | 2022-06-06 09:14 | PN.HOSP_ITS ---
Subjective Subjective Feeling better overall but has had a little bit of abdominal discomfort and diarrhea but is getting lactulose every 4. Did not report any other complaints at this time Objective Data Objective Data Vital Signs: Vital Signs Temp Pulse Resp BP Pulse Ox O2 Del Method 98.4 F 81 16 110/82 H 99 Room Air 06/06/22 08:41 06/06/22 08:41 06/06/22 08:41 06/06/22 08:41 06/06/22 08:41 06/06/22 08:41 Oxygen Delivery Method Room Air Weight: 68.9 kg Body Mass Index (BMI) 19.0 Intake & Output: Intake and Output for Last 24 Hours 06/04/22 06/05/22 06/06/22 23:59 23:59 23:59 Intake Total 3518.75 / 3758.75 1987 Output Total 1575 / 1875 1360 / 1360 600 / 600 Balance 1943.75 / 1883.75 628 / 628 -600 / -600 Lab / Micro Data Result Diagrams: 06/06/22 06:40 06/06/22 06:40 Labs: Laboratory Results - last 24 hr 06/03/22 08:20: Diff Path Review Reviewed 06/03/22 08:20: Tacrolimus 7.3 06/04/22 06:09: Diff Path Review Reviewed 06/06/22 06:40: WBC 3.2 L, RBC 2.99 L, Hgb 9.2 L, Hct 29.7 L, MCV 99.3 H, MCH 30.8, MCHC 31.0 L, RDW Std Deviation 52.7 H, RDW Coeff of Anil 14.6, Plt Count 141 L, MPV 11.9, Immature Gran % (Auto) 0.900, Neut % (Auto) 51.1, Lymph % (Auto) 16.1 L, Moody % (Auto) 16.1 H, Eos % (Auto) 14.9 H, Baso % (Auto) 0.9, Absolute Neuts (auto) 1.6 L, Absolute Lymphs (auto) 0.52 L, Nucleated RBC % 0, Differential Comment SCANNED, Diff Path Review August06/06/22 06:40: Sodium 141, Potassium 4.1, Chloride 116 H, Carbon Dioxide 17.0 L , Anion Gap 8, BUN 23 H, Creatinine 1.30, Estim Creat Clear Calc 62.57, Est GFR (MDRD) Af Amer 74, Est GFR (MDRD) Non-Af 61, BUN/Creatinine Ratio 17.7, Glucose 88, Calcium 7.8 L Micro: Microbiology 06/03/22 08:45 Blood Culture (Wb) - Left Hand Blood Culture - Preliminary No growth in 48 hours. 06/03/22 08:20 Blood Culture (Wb) - Left Wrist Bacteria Detection (PCR) - Final Staphylococcus epidermidis 06/03/22 08:20 Blood Culture (Wb) - Left Wrist Blood Culture - Preliminary Coag Negative Staph 06/03/22 08:45 Urine Catheter - Catheter Urine Culture - Final Vancomycin Resist. E. faecium 06/03/22 08:45 Nasal Secretion SARS-CoV-2 & FLU Antigen (Rapid) - Final Physical Exam Narrative General: Alert, no apparent distress HEENT: Atraumatic Eyes: Nystagmus noted which is congenital Neck: Supple Respiratory: Clear to auscultation bilaterally, normal respiratory effort Cardiovascular: Regular rate and rhythm GI: Soft, very minimal tenderness diffusely, nondistended Extremities: No edema Musculoskeletal: Moving all extremities Neuro: No overt focal neurological deficits Skin: Slight rash on neck faint Psych: Cooperative Assessment & Plan Assessment/Plan (1) Acute metabolic encephalopathy: (2) Hyperammonemia: (3) Urinary retention: (4) Congenital nystagmus: (5) Chronic kidney disease, stage 3b: (6) Acute urinary tract infection: PLAN: Plan #Acute urinary tract infection Ga placed UA suggestive of UTI Urine culture pending Chronically self caths at home unclear if was not completely cathing or if had stopped 2/2: Continue Rocephin, urine culture growing gram-positive cocci possible enteric coccus, he is improving on Rocephin still continues antibiotic this time. 1 out of 2 blood cultures positive for Staph epidermidis which, while usually contaminant, is noted to have been 2 out of 2 on blood cultures and April with the same resistance pattern raising suspicion for actual pathoge sunni infection. We will consult infectious disease 2/: Urine culture growing VRE, infectious disease consulted, Ga still in place 06/06: Medication changed to Dapto, patient doing well. 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 Continue to monitor BMP Continue tacro and ventilate We will check a.m. tacrolimus level 06/04: Has remained stable 06/06: Creatinine 1.3 is actually improved, tacrolimus level 7.3 on 06/03 and is now resulted #Staph epidermidis in blood Usually 1 out of 2 is contamination and presently 102 blood cultures growing Staph epidermidis however on 04/24 he grew 2 out of 2 with Staph epidermidis Appreciate ID recommendations #Acute metabolic encephalopathy Secondary to hyperammonemia and urinary tract infection Lactulose p.o., if unable to safely swallow we will add lactulose enema We will treat urinary tract infection with Rocephin and await culture and sensitivities Continue Ga Continue other home meds Tacrolimus level Nonpharmacologic measures Bedside swallow before advancing diet 06/04: Passed bedside swallow, significantly improved and mental status 06/05: Continues to improve 06/06: Is having little abdominal upset and diarrhea is on lactulose every 4 and with mentation improving back to every 6 #Hyperammonemia Ammonia 104 and previously was 30 Oral lactulose every 4, if unable to safely swallow will need lactulose enema versus NG tube Continue rifaximin 06/04: Continue lactulose, mental status much improved 06/05: We will continue to monitor clinically and continue lactulose 06/06: Is having little abdominal upset and diarrhea is on lactulose every 4 and with mentation improving back to every 6 #Non-anion gap metabolic acidosis Hyperchloremic, in part exacerbated by normal saline with poor p.o. intake Ideally would use LR due to its electrolyte make up however this is incompatible with Rocephin. Given that the Rocephin is every 24 we will give 500 LR bolus now and then give half-normal saline overnight. : Present but improved compared to yesterday Kidney function also improved, sodium normalized #Poor p.o. intake Previously offered PEG but had been refused We will consult nutrition/dietitian Once patient begins to improve in mental status and functional status may need to revisit alternative nutrition methods 06/04: Working with speech therapy, mentation improving #DVT ppx: Valerie Mercer MD Time spent in the patient's overall evaluation,decision-making process, review of diagnostic data, adjustment of management, discussion with other providers, nursing nursing and ancillary staff involved in patient's care documentation, 30 minutes Charges/Coding Visit Charges Inpatient E&M: 65222 Subs Hosp L2
[2022-06-06] MEDS: Mycophenolate Mofetil 250 MG Capsule 500 MG PO ×2 (09:22→21:14)
[2022-06-06] MEDS: Menthol/Lanolin/Calamine/Znox 113 GM Tube 1 APPLIC TOPICAL ×2 (09:22→21:16)
[2022-06-06] MEDS: Enoxaparin 40 MG/0.4 ML Syringe SC (09:23)
[2022-06-06] MEDS: Ensure Plus High Protein 120 ML LIQUID PO ×3 (09:23→21:16)
[2022-06-06] MEDS: rifAXIMin 550 MG Tablet PO ×2 (09:24→21:17)
[2022-06-06] MEDS: Tacrolimus 0.5 MG Capsule PO ×2 (09:24→21:18)
[2022-06-06] MEDS: MELATONIN 10 MG TABLET PO (21:16)
[2022-06-06] MEDS: Mirtazapine 30 MG Tablet PO (21:19)
[2022-06-07] VITALS (8 sets, daily range): BP systolic 106–116; BP diastolic 57–92; PULSE 82–95; RESP 16–18; TEMP 36.7–37.3; O2SAT 94–97
[2022-06-07] MEDS: Dronabinol 2.5 MG Capsule PO ×2 (06:10→18:00)
[2022-06-07] MEDS: Lactulose 20 GM/30 ML UDC PO ×2 (06:10→12:46)
[2022-06-07] MEDS: Sodium Bicarbonate 650 MG Tablet 1300 MG PO ×3 (06:10→20:51)
[2022-06-07] MEDS: Mycophenolate Mofetil 250 MG Capsule 500 MG PO ×2 (10:00→20:52)
[2022-06-07] MEDS: Enoxaparin 40 MG/0.4 ML Syringe SC (10:52)
[2022-06-07] MEDS: Menthol/Lanolin/Calamine/Znox 113 GM Tube 1 APPLIC TOPICAL ×2 (10:53→20:50)
[2022-06-07] MEDS: rifAXIMin 550 MG Tablet PO ×2 (10:54→20:51)
[2022-06-07] MEDS: Tacrolimus 0.5 MG Capsule PO ×2 (10:54→20:52)
[2022-06-07] MEDS: 0.9% Saline Lock 10 ML Syringe IV (10:55)
[2022-06-07] MEDS: Ensure Plus High Protein 120 ML LIQUID PO ×4 (10:59→20:50)
--- NOTE | 2022-06-07 15:01 | PCM.PN.HOSP ---
Subjective Subjective Laying in bed, still does have some abdominal discomfort, did not voice any other acute complaints, plan to decrease lactulose further Objective Data Objective Data Vital Signs: Vital Signs Temp Pulse Resp BP Pulse Ox O2 Del Method 98.5 F 87 16 107/65 96 Room Air 06/07/22 08:26 06/07/22 08:26 06/07/22 08:26 06/07/22 08:26 06/07/22 08:26 06/07/22 08:26 Oxygen Delivery Method Room Air Weight: 69.4 kg Body Mass Index (BMI) 19.0 Intake & Output: Intake and Output for Last 24 Hours 06/05/22 06/06/22 06/07/22 23:59 23:59 23:59 Intake Total 1987 / 1987 1198 / 1198 278 / 278 Output Total 1360 / 1360 1850 / 1850 580 / 580 Balance 628 / 628 -652 / -652 -302 / -302 Lab / Micro Data Result Diagrams: 06/06/22 06:40 06/06/22 06:40 Micro: Microbiology 06/03/22 08:45 Blood Culture (Wb) - Left Hand Blood Culture - Preliminary No growth in 48 hours. 06/03/22 08:20 Blood Culture (Wb) - Left Wrist Bacteria Detection (PCR) - Final Staphylococcus epidermidis 06/03/22 08:20 Blood Culture (Wb) - Left Wrist Blood Culture - Preliminary Coag Negative Staph 06/03/22 08:45 Urine Catheter - Catheter Urine Culture - Final Vancomycin Resist. E. faecium 06/03/22 08:45 Nasal Secretion SARS-CoV-2 & FLU Antigen (Rapid) - Final Physical Exam Narrative General: Alert, no apparent distress HEENT: Atraumatic Eyes: Nystagmus noted which is congenital Neck: Supple Respiratory: Clear to auscultation bilaterally, normal respiratory effort Cardiovascular: Regular rate and rhythm GI: Soft, very minimal tenderness diffusely, nondistended Extremities: No edema Musculoskeletal: Moving all extremities Neuro: No overt focal neurological deficits Skin: No open lesions or ecchymosis appreciated Psych: Cooperative Assessment & Plan Assessment/Plan (1) Acute metabolic encephalopathy: (2) Hyperammonemia: (3) Urinary retention: (4) Congenital nystagmus: (5) Chronic kidney disease, stage 3b: (6) Acute urinary tract infection: PLAN: Plan #Acute urinary tract infection Ga placed UA suggestive of UTI Urine culture pending Chronically self caths at home unclear if was not completely cathing or if had stopped 06/04: Continue Rocephin, urine culture growing gram-positive cocci possible enteric coccus, he is improving on Rocephin still continues antibiotic this time. 1 out of 2 blood cultures positive for Staph epidermidis which, while usually contaminant, is noted to have been 2 out of 2 on blood cultures and April with the same resistance pattern raising suspicion for actual pathogenic infection. We will consult infectious disease 06/05: Urine culture growing VRE, infectious disease consulted, Ga still in place 06/06: Medication changed to Dapto, patient doing well. 06/07: Urine culture VRE, 1 out of 2 blood culture staph epi. Patient on Dapto started by infectious disease. Still has Ga in place. Given progress may be able to begin discharge planning tomorrow with ID recommendations for antibiotics, if he will need IV Dapto will need midline. May benefit from maintaining Ga until current infectious process resolves or could always consider this chronically given his repeated admissions with self cathing and urinary retention. 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 Continue to monitor BMP Continue tacro and ventilate We will check a.m. tacrolimus level 06/04: Has remained stable 06/06: Creatinine 1.3 is actually improved, tacrolimus level 7.3 on 06/03 and is now resulted 06/07: Creatinine 1.3 today, continue current management, continue mycophenolate Mofetil and tacrolimus #Staph epidermidis in blood Usually 1 out of 2 is contamination and presently 102 blood cultures growing Staph epidermidis however on 04/24 he grew 2 out of 2 with Staph epidermidis Appreciate ID recommendations #Acute metabolic encephalopathy Secondary to hyperammonemia and urinary tract infection Lactulose p.o., if unable to safely swallow we will add lactulose enema We will treat urinary tract infection with Rocephin and await culture and sensitivities Continue Ga Continue other home meds Tacrolimus level Nonpharmacologic measures Bedside swallow before advancing diet 06/04: Passed bedside swallow, significantly improved and mental status 06/05: Continues to improve 06/06: Is having little abdominal upset and diarrhea is on lactulose every 4 and with mentation improving back to every 6 #Hyperammonemia Ammonia 104 and previously was 30 Oral lactulose every 4, if unable to safely swallow will need lactulose enema versus NG tube Continue rifaximin 2: Continue lactulose, mental status much improved 2: We will continue to monitor clinically and continue lactulose 2: Is having little abdominal upset and diarrhea is on lactulose every 4 and with mentation improving back to every 6 2: Still having a little bit of abdominal upset with the lactulose, decreased to 15 g every 6, check ammonia in the a.m. #Non-anion gap metabolic acidosis Hyperchloremic, in part exacerbated by normal saline with poor p.o. intake Ideally would use LR due to its electrolyte make up however this is incompatible with Rocephin. Given that the Rocephin is every 24 we will give 500 LR bolus now and then give half-normal saline overnight. : Present but improved compared to yesterday Kidney function also improved, sodium normalized #Poor p.o. intake Previously offered PEG but had been refused We will consult nutrition/dietitian Once patient begins to improve in mental status and functional status may need to revisit alternative nutrition methods 2: Working with speech therapy, mentation improving #DVT ppx: Valerie Mercer MD Time spent in the patient's overall evaluation,decision-making process, review of diagnostic data, adjustment of management, discussion with other providers, nursing nursing and ancillary staff involved in patient's care documentation, 30 minutes Charges/Coding Visit Charges Inpatient E&M: 24868 Subs Hosp L2
[2022-06-07] MEDS: Lactulose 20 GM/30 ML UDC 15 GM PO ×2 (18:04→23:40)
[2022-06-07] MEDS: MELATONIN 10 MG TABLET PO (20:51)
[2022-06-07] MEDS: Mirtazapine 30 MG Tablet PO (20:52)
[2022-06-08 05:39] LABS: Absolute Lymphocyte Count 0.52 X10^3/uL (0.83-4.51); Absolute Neutrophil Count 1.8 X10^3/uL (2.0-7.7); Basophil# 0.04 X10^3/uL; Basophil% 1.2 % (0-1); Eosinophil# 0.34 X10^3/uL; Eosinophils% 10.5 % (0-5); Hemoglobin 9.1 g/dL (13.0-16.5); Lymphocyte # 0.52 X10^3/ul (0.83-4.51); Mean Corp Hgb Conc 32.5 g/dL (32-36); Mean Corpuscular Hgb 31.6 pg (27.0-32.0); Mean Corpuscular Volume 97.2 fL (80-94); Mean Platelet Vol. 11.1 fl (6.2-12.0); Monocyte# 0.55 X10^3/uL; Monocyte% 16.9 % (0-10); NRBC Flagged by Analyzer 0 % (0-5); Neutrophil # 1.77 X10^3/uL (2.7-7.7); Neutrophil % 54.5 % (47-70); POSITIVE DIFFERENTIAL YES; Platelet Count 141 K/mm3 (150-450); RBC Distribution Width CV 14.6 % (11.6-14.6); RBC Distribution Width SD 51.1 fl (35.1-43.9); Red Blood Count 2.88 M/mm3 (4.6-6.2); White Blood Count 3.3 K/mm3 (4.4-11.0)
[2022-06-08 05:43] LABS: Differential Indicated SCAN CRITERIA MET
[2022-06-08 06:02] LABS: Anion Gap 8 (5-15); BUN 29 mg/dL (7-18); Calcium,Total 7.7 mg/dL (8.5-10.1); Chloride 113 mmol/L (98-107); Creatinine, Serum 1.26 mg/dL (0.70-1.30); EST Glomerular Filtration Rate 63 mL/min (>60); Est Glom Filt Rate - Afr Amer 76 mL/min (>60); Estimated Creatinine Clearance 64.37 ml/min; Glucose 91 mg/dL (74-106); Potassium 4.2 mmol/L (3.5-5.1); Sodium Level 143 mmol/L (136-145)
[2022-06-08 06:10] VITALS: BP 112/66; PULSE 84; RESP 18; TEMP 37; O2SAT 96
[2022-06-08] MEDS: Lactulose 20 GM/30 ML UDC 15 GM PO ×2 (06:20→18:04)
[2022-06-08] MEDS: Dronabinol 2.5 MG Capsule PO ×2 (06:21→15:31)
[2022-06-08] MEDS: Sodium Bicarbonate 650 MG Tablet 1300 MG PO ×3 (06:23→21:53)
[2022-06-08 07:33] LABS: Macrocytosis 1+; Platelet Estimate SLT DEC (ADEQ)
[2022-06-08 09:26] VITALS: BP 120/64; PULSE 95; RESP 16; TEMP 37.2; O2SAT 95
[2022-06-08] MEDS: Menthol/Lanolin/Calamine/Znox 113 GM Tube 1 APPLIC TOPICAL ×2 (09:28→21:54)
[2022-06-08] MEDS: Ensure Plus High Protein 120 ML LIQUID PO ×3 (09:29→21:54)
[2022-06-08] MEDS: Enoxaparin 40 MG/0.4 ML Syringe SC (09:29)
[2022-06-08] MEDS: rifAXIMin 550 MG Tablet PO ×2 (09:30→21:53)
[2022-06-08] MEDS: Mycophenolate Mofetil 250 MG Capsule 500 MG PO ×2 (09:30→21:53)
[2022-06-08] MEDS: Tacrolimus 0.5 MG Capsule PO ×2 (09:30→21:54)
[2022-06-08 10:48] LABS: Pathologist Review Reviewed
--- NOTE | 2022-06-08 11:36 | PN.HOSP_ITS ---
Subjective Subjective Patient seen and examined. He had no active complaints and was lying in bed comfortably. REview of systems otherwise negative. He has remained hemodynamically stable. Objective Data Objective Data Vital Signs: Vital Signs Temp Pulse Resp BP Pulse Ox O2 Del Method 99.0 F 95 16 120/64 95 Room Air 06/08/22 09:26 06/08/22 09:26 06/08/22 09:26 06/08/22 09:26 06/08/22 09:26 06/08/22 09:56 Oxygen Delivery Method Room Air Weight: 151 lb 7.321 oz Body Mass Index (BMI) 19.0 Intake & Output: Intake and Output for Last 24 Hours 06/06/22 06/07/22 06/08/22 23:59 23:59 23:59 Intake Total 1198 / 1198 3198 / 3198 Output Total 1850 / 1850 1480 / 1480 500 / 500 Balance -652 / -652 1718 / 1718 -500 / -500 Lab / Micro Data Result Diagrams: 06/08/22 05:25 06/08/22 05:25 Labs: Laboratory Results - last 24 hr 06/05/22 04:27: Diff Path Review Reviewed 06/08/22 05:25: WBC 3.3 L, RBC 2.88 L, Hgb 9.1 L, Hct 28.0 L, MCV 97.2 H, MCH 31.6, MCHC 32.5, RDW Std Deviation 51.1 H, RDW Coeff of Anil 14.6, Plt Count 141 L, MPV 11.1, Immature Gran % (Auto) 0.900, Neut % (Auto) 54.5, Lymph % (Auto) 16.0 L, Latimer % (Auto) 16.9 H, Eos % (Auto) 10.5 H, Baso % (Auto) 1.2 H, Absolute Neuts (auto) 1.8 L, Absolute Lymphs (auto) 0.52 L, Nucleated RBC % 0, Diff Path Review May carmen, Platelet Estimate SLT DEC, Macrocytosis 1+ 06/08/22 05:25: Sodium 143, Potassium 4.2, Chloride 113 H, Carbon Dioxide 22.0, Anion Gap 8, BUN 29 H, Creatinine 1.26, Estim Creat Clear Calc 64.37, Est GFR (MDRD) Af Amer 76, Est GFR (MDRD) Non-Af 63, BUN/Creatinine Ratio 23.0 H, Glucose 91, Calcium 7.7 L 06/08/22 05:25: Ammonia 64.0 H Micro: Microbiology 06/03/22 08:45 Blood Culture (Wb) - Left Hand Blood Culture - Final No growth in 5 days. 06/03/22 08:20 Blood Culture (Wb) - Left Wrist Bacteria Detection (PCR) - Final Staphylococcus epidermidis 06/03/22 08:20 Blood Culture (Wb) - Left Wrist Blood Culture - Final Coag Negative Staph 06/03/22 08:45 Urine Catheter - Catheter Urine Culture - Final Vancomycin Resist. E. faecium 06/03/22 08:45 Nasal Secretion SARS-CoV-2 & FLU Antigen (Rapid) - Final Physical Exam Const alert and no apparent distress HEENT head/scalp atraumatic HEENT Narrative: dry oral mucosa Head and Scalp: normocephalic Eyes PERRL, EOMs intact bilaterally and conjunctivae normal Neck no lymphadenopathy, supple and no JVD Resp Resp Narrative: mildly diminished breath sounds bibasally, no wheezes or crackles. Cardio regular rate, regular rhythm, S1 normal heart sound, S2 normal heart sound and no murmurs GI normal to inspection, nondistended, normoactive bowel sounds, soft to palpation, non-tender and non-distended Extremity normal to inspection and full ROM Neuro CN's II-XII intact bilaterally, moves all extremities and no focal motor deficits Sensorium / Orientation: awake and alert Psych Psych Narrative: flat affect Assessment & Plan Assessment/Plan (1) Acute urinary tract infection: (2) Hyperammonemia: (3) Urinary retention: PLAN: Plan #Acute UTI * patient has recurrent UTI; self cath's chronically at home * urine cultures grew VRE; on daptomycin * ID on board * blood culture growing staph epidermidis (1 out o 2) * ID to give recommendations about duration of antibiotics * #ESRD * has history of kidney transplant in 2016. * on tacrolimus and mycophenolate * #Hyperammonemia * on lactulose. Ammonia level is down o 64. * continue lactulose; aim for 2-3 loose stools daily * also on rifaximin * #Non anion gap metabolic acidosis: resolved #History of atonic bladder: self caths regularly. DVT prophylaxis: lovenox Disposition: anticipate dc to SNF tomorrow * Charges/Coding Visit Charges Inpatient E&M: 57266 Subs Hosp L2
--- NOTE | 2022-06-08 12:46 | PCM.PN.ID ---
Physical Exam Narrative Feeling better, no fever Const no apparent distress General Appearance: cooperative Resp normal air movement and clear to auscultation bilaterally Cardio regular rate and regular rhythm GI soft to palpation, non-tender and non-distended Skin no rashes or lesions noted ID ID: Route of nutrition/ use of supplements: [] Nutritional Intake: [] IV Site: [] Ga Catheter: [] Assessment & Plan Assessment/Plan (1) Urinary tract infection: PLAN: VRE uti with h/o kidney transplant. On MMF and tacro. Cr improved. With growth of VRE, 06/05/22 changed to dapto to see if this helps. Avoiding linezolid at this time due to risk of serotonin syndrome with remeron and due to his pancytopenia. Mental status much improved, plan on stopping dapto tomorrow. Will follow (2) Renal transplant recipient:
[2022-06-08 15:20] VITALS: BP 114/66; PULSE 89; RESP 16; TEMP 36.8; O2SAT 97
[2022-06-08] MEDS: Mirtazapine 30 MG Tablet PO (21:53)
[2022-06-08] MEDS: MELATONIN 10 MG TABLET PO (21:54)
[2022-06-08 22:03] VITALS: BP 107/62; PULSE 87; RESP 17; TEMP 36.6; O2SAT 98
[2022-06-09] VITALS: BP 110/65; PULSE 80; RESP 17; TEMP 36.6; O2SAT 98
[2022-06-09] MEDS: Lactulose 20 GM/30 ML UDC 15 GM PO ×3 (00:45→11:40)
[2022-06-09 03:47] VITALS: BP 110/65; PULSE 80; RESP 18; TEMP 36.6; O2SAT 99
[2022-06-09 06:00] VITALS: BP 102/67; PULSE 82; RESP 17; TEMP 36.6; O2SAT 97
[2022-06-09] MEDS: Dronabinol 2.5 MG Capsule PO (06:41)
[2022-06-09] MEDS: Sodium Bicarbonate 650 MG Tablet 1300 MG PO ×2 (06:41→14:27)
[2022-06-09 07:21] LABS: Absolute Lymphocyte Count 0.51 X10^3/uL (0.83-4.51); Basophil# 0.04 X10^3/uL; Basophil% 0.9 % (0-1); Eosinophil# 0.29 X10^3/uL; Eosinophils% 6.3 % (0-5); Hematocrit 29.3 % (40-54); Hemoglobin 9.4 g/dL (13.0-16.5); Lymphocyte # 0.51 X10^3/ul (0.83-4.51); Lymphocyte % 11.1 % (19-41); Mean Corp Hgb Conc 32.1 g/dL (32-36); Mean Corpuscular Hgb 31.1 pg (27.0-32.0); Mean Platelet Vol. 11.4 fl (6.2-12.0); Monocyte# 0.78 X10^3/uL; NRBC Flagged by Analyzer 0 % (0-5); Neutrophil # 2.95 X10^3/uL (2.7-7.7); Neutrophil % 64.3 % (47-70); POSITIVE DIFFERENTIAL YES; Platelet Count 142 K/mm3 (150-450); RBC Distribution Width CV 14.7 % (11.6-14.6); RBC Distribution Width SD 51.8 fl (35.1-43.9); Red Blood Count 3.02 M/mm3 (4.6-6.2); White Blood Count 4.6 K/mm3 (4.4-11.0)
[2022-06-09 07:28] LABS: Differential Indicated SCAN CRITERIA MET
[2022-06-09 07:58] LABS: Anion Gap 8 (5-15); BUN 27 mg/dL (7-18); BUN/Creat Ratio 21.6 RATIO (10-20); Calcium,Total 8.2 mg/dL (8.5-10.1); Chloride 116 mmol/L (98-107); Creatinine, Serum 1.25 mg/dL (0.70-1.30); EST Glomerular Filtration Rate 64 mL/min (>60); Est Glom Filt Rate - Afr Amer 77 mL/min (>60); Glucose 89 mg/dL (74-106); Potassium 4.5 mmol/L (3.5-5.1); Sodium Level 143 mmol/L (136-145)
[2022-06-09 08:10] LABS: Differential Comment SCANNED
[2022-06-09 09:37] LABS: Pathologist Review Reviewed
[2022-06-09 09:54] VITALS: BP 107/67; PULSE 82; RESP 16; TEMP 36.9; O2SAT 96
[2022-06-09] MEDS: Mycophenolate Mofetil 250 MG Capsule 500 MG PO (09:58)
[2022-06-09] MEDS: Menthol/Lanolin/Calamine/Znox 113 GM Tube 1 APPLIC TOPICAL (09:58)
[2022-06-09] MEDS: rifAXIMin 550 MG Tablet PO (09:58)
[2022-06-09] MEDS: Tacrolimus 0.5 MG Capsule PO (09:58)
[2022-06-09] MEDS: Enoxaparin 40 MG/0.4 ML Syringe SC (09:59)
[2022-06-09] MEDS: Ensure Plus High Protein 120 ML LIQUID PO ×2 (10:00→14:27)
--- NOTE | 2022-06-09 10:51 | PCM.PN.ID ---
Physical Exam Narrative Sleeping this AM, no fever Const no apparent distress Resp normal air movement and clear to auscultation bilaterally Cardio regular rate and regular rhythm GI soft to palpation, non-tender and non-distended Skin no rashes or lesions noted ID ID: Route of nutrition/ use of supplements: [] Nutritional Intake: [] IV Site: [] Ga Catheter: [] Assessment & Plan Assessment/Plan (1) Urinary tract infection: PLAN: VRE uti with h/o kidney transplant. On MMF and tacro. Cr improved. With growth of VRE, 06/05/22 changed to dapto to see if this helps. Avoiding linezolid at this time due to risk of serotonin syndrome with remeron and due to his pancytopenia. Mental status much improved, will stop dapto today. Will follow (2) Renal transplant recipient:
--- NOTE | 2022-06-09 11:24 | CASEMGMT ---
Patient will be discharged back to [facility] today. STUART notified [place] at [facility] via [facility]. STUART also sent updated notes. Anna KING
--- NOTE | 2022-06-09 11:37 | TREXTCAR_ITS ---
Diet Diet Order/Speech Therapy: 06/03/22 15:13 Diet: Regular - General Food consistency:: Mechanical (Minced/Moist) Liquid Consistency:: Regular/Thin Diet Comments: setup / supervision as needed depending mental status Routine Orders/Code Status Enema Type: Fleetz Enema Frequency: Daily PRN Suppository Type: Dulcolax 10mg Suppository Frequency: Daily PRN O2 Frequency: PRN Keep PO Greater than or Equal to (%): 90 Therapies Weight Bearing: Weight bearing as tolerated Physical Therapy: Eval and Treat Occupational Therapy: Eval and Treat Problem/Diagnosis (1) Urinary tract infection: Status: Acute Code(s): N39.0 - Urinary tract infection, site not specified (2) Renal transplant recipient: Status: Acute Code(s): Z94.0 - Kidney transplant status Plan #Acute UTI * patient has recurrent UTI; self cath's chronically at home * urine cultures grew VRE; on daptomycin * ID on board * blood culture growing staph epidermidis (1 out o 2) * ID to give recommendations about duration of antibiotics * #ESRD * has history of kidney transplant in 2016. * on tacrolimus and mycophenolate * #Hyperammonemia * on lactulose. Ammonia level is down o 64. * continue lactulose; aim for 2-3 loose stools daily * also on rifaximin * #Non anion gap metabolic acidosis: resolved #History of atonic bladder: self caths regularly. DVT prophylaxis: lovenox Disposition: anticipate dc to SNF tomorrow * Allergies/Procedures Done in Hospital Allergies anything red Adverse Reaction (Uncoded 06/03/22 08:09) Hives Procedures: None Type of Care/Length of Stay Estimated LOS: Convalescent Care Less Than 30 days Type of Care Needed: Skilled Rehab Potential: Fair Prognosis: Fair Additional Orders/Day of Discharge Day of Discharge: 06/09/22 Dietary and Speech Recommendations Dietitian Recommendations/Changes: Continue regular diet- texture/consistency per DIRT SUPERVISOR. Continue ensure plus high protein 120mL 4x/day w/ medpass. Limit excessive protein due to high ammonia 64. Discharge Plan Admission Admit Date/Time: 06/03/22 10:52 Primary Reason for Your Visit: UTI Attending Provider: Sarah Reyes Primary Care Provider: Mike Bella Consulting Providers: Cheng Santos ; Mercer,Linda Instructions Patient Instructions: Catheter-Linked Urinary Tract ... Discharge Orders/Prescriptions Prescriptions: Continued mycophenolate mofetil 500 MG tablet 500 mg PO 0900,2100 Label Comments: anti rejection multivitamin Tablet 1 tab PO QHS acetaminophen [Tylenol] 325 mg Tablet 650 mg PO Q6H PRN PRN (Reason: Pain 1-10 Or Fever>100.7) Qty: 0 0RF sodium bicarbonate 650 mg tablet 1,300 mg PO TID Qty: 6 0RF dronabinol 2.5 mg Capsule 2.5 mg PO BIDAC Qty: 10 0RF Xifaxan 550 mg Tablet 550 mg PO BID Qty: 0 0RF lactulose 20 gram/30 mL Solution 20 g PO Q4 Qty: 0 0RF tacrolimus 0.5 mg Capsule 0.5 mg PO BID Qty: 0 0RF Boost VHC 0.09-2.25 gram-kcal/mL Liquid 240 ml PO TID mirtazapine 30 mg tablet 30 mg PO QHS Referrals / Follow Up: Mike Bella MD [Primary Care Provider] - Within 2 Weeks Disposition Disposition (needs filled in before D/C Order can be placed): Long Term Facility
--- NOTE | 2022-06-09 11:39 | DS.PCM_ITS ---
Providers Date of Admission: 06/03/22 Date of Discharge: 06/09/22 Primary Care Physician: Dr. Mike Bella MD Consultations 06/04/22 17:22 Consult: Infectious Disease Routine Consulting Provider: Cheng Santos Reason for Consult: staph epi bld cx 2/2 in Apr, now 1/2 already on new cx EMERGENT Consult: No MD Notified: Yes Date Notified: 06/04/22 Time Notified: 17:29 Method of Notification: Text Reason For Visit: UTI, HYPERAMMONEMIA Diagnosis Discharge Diagnosis (1) Urinary tract infection: Status: Acute Code(s): N39.0 - Urinary tract infection, site not specified (2) Renal transplant recipient: Status: Acute Code(s): Z94.0 - Kidney transplant status Plan #Acute UTI * patient has recurrent UTI; self cath's chronically at home * urine cultures grew VRE; on daptomycin * ID on board * blood culture growing staph epidermidis (1 out o 2) * ID to give recommendations about duration of antibiotics * #ESRD * has history of kidney transplant in 2015. * on tacrolimus and mycophenolate * #Hyperammonemia * on lactulose. Ammonia level is down o 64. * continue lactulose; aim for 2-3 loose stools daily * also on rifaximin * #Non anion gap metabolic acidosis: resolved #History of atonic bladder: self caths regularly. DVT prophylaxis: lovenox Disposition: anticipate dc to SNF tomorrow * Medications at Discharge Home Medications mycophenolate mofetil 500 mg tablet 500 mg PO 0900,2100 Anti-Rejection 07/14/16 multivitamin 1 tab PO QHS supplement 02/13/22 acetaminophen 325 mg tablet (Tylenol) 650 mg PO Q6H PRN PRN Pain 1-10 Or Fever>100.7 #0 tabs 04/21/22 sodium bicarbonate 650 mg tablet 1,300 mg PO TID #6 tabs 04/21/22 dronabinol 2.5 mg capsule 2.5 mg PO BIDAC #10 caps 05/04/22 lactulose 20 gram/30 mL oral solution 20 g (30 mL) PO Q4 #0 mL 05/04/22 rifaximin 550 mg tablet (Xifaxan) 550 mg PO BID #0 tabs 05/04/22 tacrolimus 0.5 mg capsule, immediate-release 0.5 mg PO BID #0 caps 05/04/22 mirtazapine 30 mg tablet 30 mg PO QHS DEPRESSION 06/03/22 nut tx, lact-reduced, iron 0.09 gram-2.25 kcal/mL oral liquid (Boost VHC) 240 ml PO TID SUPPLEMENT 06/03/22 Hospital Course Operations None Procedures None Summary of Care Provided Minutes Spent on Discharge: 48 Hospital Course: Is a 57-year-old male with a past medical history as outlined was admitted through the ED on 06/03/2022 with a complaint of lethargy. He could not provide any other history. He had been noted to have poor oral intake. Patient did have an atonic bladder and had been self catheterizing. Urinalysis showed evidence of UTI he also had elevated ammonia levels. He was admitted and managed for recurrent UTI and acute encephalopathy due to elevated ammonia levels. He was started on lactulose to aim for 2-3 loose stools daily. He was also started on IV Rocephin. Previous urine cultures have grown VRE. Urine cultures this time also grew VRE. Blood cultures grew Staph epidermidis 1 out of 2 samples. Antibiotics were switched to daptomycin. Patient's mentation improved and he felt much better. Antibiotics were stopped on 06/09/2022. He r emained stable and was discharged to his care home on 06/09/2022. He has follow-up with his primary care doctor within 1 to 2 weeks. Patient seen and examined prior to discharge. He was alert and had no active complaints. Review of symptoms otherwise negative. Labs and vitals reviewed. Home medication reviewed and reconciled. Physical Exam Const alert and no apparent distress General Appearance: cooperative and comfortable Orientation / Consciousness: awake HEENT normocephalic, head/scalp atraumatic and hearing grossly normal bilaterally HEENT Narrative: congenital nystagmus Eyes PERRL, EOMs intact bilaterally and conjunctivae normal Neck no lymphadenopathy, supple and no JVD Resp Resp Narrative: mildly diminished breath sounds bibasally, no wheezes or crackles. Cardio regular rate, regular rhythm, S1 normal heart sound, S2 normal heart sound and no murmurs GI normal to inspection, nondistended, normoactive bowel sounds, soft to palpation, non-tender and non-distended Extremity normal to inspection and full ROM Neuro CN's II-XII intact bilaterally, moves all extremities and no focal motor deficits Sensorium / Orientation: awake and alert Psych Psych Narrative: flat affect Weight / BMI Weight Weight: 150 lb 12.739 oz Body Mass Index (BMI) 19.0 ABG / Lab / Microbiology Data Result Diagrams: 06/09/22 06:54 06/09/22 06:54 Laboratory: Laboratory Results - last 24 hr 06/06/22 06:40: Diff Path Review Reviewed 06/09/22 06:54: WBC 4.6, RBC 3.02 L, Hgb 9.4 L, Hct 29.3 L, MCV 97.0 H, MCH 31.1, MCHC 32.1, RDW Std Deviation 51.8 H, RDW Coeff of Anil 14.7 H, Plt Count 142 L, MPV 11.4, Immature Gran % (Auto) 0.400, Neut % (Auto) 64.3, Lymph % (Auto) 11.1 L, Castro % (Auto) 17.0 H, Eos % (Auto) 6.3 H, Baso % (Auto) 0.9, Absolute Neuts (auto) 3.0, Absolute Lymphs (auto) 0.51 L, Nucleated RBC % 0, Differential Comment SCANNED 06/09/22 06:54: Sodium 143, Potassium 4.5, Chloride 116 H, Carbon Dioxide 19.0 L , Anion Gap 8, BUN 27 H, Creatinine 1.25, Estim Creat Clear Calc 64.60, Est GFR (MDRD) Af Amer 77, Est GFR (MDRD) Non-Af 64, BUN/Creatinine Ratio 21.6 H, Glucose 89, Calcium 8.2 L Microbiology: Microbiology 06/03/22 08:45 Blood Culture (Wb) - Left Hand Blood Culture - Final No growth in 5 days. 06/03/22 08:20 Blood Culture (Wb) - Left Wrist Bacteria Detection (PCR) - Fi nal Staphylococcus epidermidis 06/03/22 08:20 Blood Culture (Wb) - Left Wrist Blood Culture - Final Coag Negative Staph 06/03/22 08:45 Urine Catheter - Catheter Urine Culture - Final Vancomycin Resist. E. faecium 06/03/22 08:45 Nasal Secretion SARS-CoV-2 & FLU Antigen (Rapid) - Final D/C Instructions Discharge Diet: Low fat / Low cholesterol Discharge Activity: Return to Normal Activity Weight Bearing Status: Weight bearing as tolerated Call your doctor if you observe: Fever of 101 or Higher, Shortness of breath, Dizziness, Swelling in the ankles and Chest pain Meaningful Use Info Meaningful Use Diagnoses (Choose all that apply): None applicable Discharge Plan Admission Admit Date/Time: 06/03/22 10:52 Primary Reason for Your Visit: UTI Attending Provider: Sarah Reyes Primary Care Provider: Mike Bella Consulting Providers: hCeng Santos ; Linda Mercer Instructions Patient Instructions: Catheter-Linked Urinary Tract ... Discharge Orders/Prescriptions Prescriptions: Continued mycophenolate mofetil 500 MG tablet 500 mg PO 0900,2100 Label Comments: anti rejection multivitamin Tablet 1 tab PO QHS acetaminophen [Tylenol] 325 mg Tablet 650 mg PO Q6H PRN PRN (Reason: Pain 1-10 Or Fever>100.7) Qty: 0 0RF sodium bicarbonate 650 mg tablet 1,300 mg PO TID Qty: 6 0RF dronabinol 2.5 mg Capsule 2.5 mg PO BIDAC Qty: 10 0RF Xifaxan 550 mg Tablet 550 mg PO BID Qty: 0 0RF lactulose 20 gram/30 mL Solution 20 g PO Q4 Qty: 0 0RF tacrolimus 0.5 mg Capsule 0.5 mg PO BID Qty: 0 0RF Boost VHC 0.09-2.25 gram-kcal/mL Liquid 240 ml PO TID mirtazapine 30 mg tablet 30 mg PO QHS Referrals / Follow Up: Mike Bella MD [Primary Care Provider] - Within 2 Weeks Disposition Disposition (needs filled in before D/C Order can be placed): Assisted Facility Charges/Coding Visit Charges Inpatient E&M: 32499 Disch Hosp >30min
--- NOTE | 2022-06-09 11:46 | PHA.DC.MR ---
Pharmacy Service has performed discharge medication reconciliation for this patient. The patient's discharge medication list was reviewed for discrepancies and discrepancies were resolved. Home Medications mycophenolate mofetil 500 mg tablet 500 mg PO 0900,2100 Anti-Rejection 07/14/16 multivitamin 1 tab PO QHS supplement 02/13/22 acetaminophen 325 mg tablet (Tylenol) 650 mg PO Q6H PRN PRN Pain 1-10 Or Fever>100.7 #0 tabs 04/21/22 sodium bicarbonate 650 mg tablet 1,300 mg PO TID #6 tabs 04/21/22 dronabinol 2.5 mg capsule 2.5 mg PO BIDAC #10 caps 05/04/22 lactulose 20 gram/30 mL oral solution 20 g (30 mL) PO Q4 #0 mL 05/04/22 rifaximin 550 mg tablet (Xifaxan) 550 mg PO BID #0 tabs 05/04/22 tacrolimus 0.5 mg capsule, immediate-release 0.5 mg PO BID #0 caps 05/04/22 mirtazapine 30 mg tablet 30 mg PO QHS DEPRESSION 06/03/22 nut tx, lact-reduced, iron 0.09 gram-2.25 kcal/mL oral liquid (Boost VHC) 240 ml PO TID SUPPLEMENT 06/03/22
[2022-06-09 12:05] LABS: Pathologist Review Reviewed
--- NOTE | 2022-06-09 13:36 | CASEMGMT ---
Addendum entered by Anna Kirby 06/09/22 15:08: SW called [facility] to [facility] on transport. [facility] will transport patient. 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 SW called patient's sister Chandrakant and let her know patient will be leaving in the next few minutes. She thanked for the call. Anna KING Original Note: Orders and COVID test were sent to [facility] via [facility]. SW called [facility] and requested transport via [facility]. Confirmation number: [id number]. Await call regarding who will be picking up patient and when. SW called patient's sister Chandrakant and let her know patient will return to [facility] today. Chandrakant asked that SW call her when patient leaves. Plan: d/c back to [facility] under intermediate level of care. Awaiting [facility] to arrange transport. Anna KING
[2022-06-09 14:28] VITALS: BP 107/71; PULSE 95; RESP 16; TEMP 36.7; O2SAT 95
--- NOTE | 2022-06-09 15:26 | NURSING ---
Report called to the Gilson Hayes LPN, at [id number].
== END 2022-06-09 15:15 | disposition skilled nursing facility (03) | DRG 689 ==
LOC: ED 09:04 → PCU 11:52
PROVIDERS: Admitting Provider Internal Medicine; Emergency Provider Emergency Medicine; PCP Family Medicine; Visit Provider Student in an Organized Health Care Education/Training Program
DX: N39.0 Urinary tract infection, site not specified (principal); G93.41 Metabolic encephalopathy; N18.6 End stage renal disease; E72.4 Disorders of ornithine metabolism; E87.20 Acidosis, unspecified; Z94.0 Kidney transplant status; D64.9 Anemia, unspecified; I12.9 Hypertensive chronic kidney disease with stage 1 through stage 4 chronic kidney disease, or unspecified chronic kidney disease; H55.01 Congenital nystagmus; R33.9 Retention of urine, unspecified; Z79.2 Long term (current) use of antibiotics; B95.2 Enterococcus as the cause of diseases classified elsewhere
CPT/HCPCS: 36415; 51702; 70450; 71045; 80048; 80053; 80197; 81001; 82140; 83605; 85025; 87040; 87077; 87086; 87088; 87149; 87186; 87426; 87428; 92526; 92610; 93005; 97110; 97162; 97166; 97530; 97535; 97802; 99285; J0878; J7030; J7120; A4216; J3490

== ENCOUNTER 2022-06-13 19:48 | Observation (INO) | payer MEDICARE, SELFPAY ==
[2022-06-13 19:49] VITALS: BP 131/76; PULSE 85; RESP 18; TEMP 36.8; O2SAT 97; BMI 21.7
--- NOTE | 2022-06-13 20:08 | EKG12_ITS ---
Test Reason : DYSRHYTHMIA Blood Pressure : / mmHG Vent. Rate : 090 BPM Atrial Rate : 090 BPM P-R Int : 146 ms QRS Dur : 086 ms QT Int : 402 ms P-R-T Axes : 047 035 051 degrees QTc Int : 491 ms Normal sinus rhythm Prolonged QT Abnormal ECG Confirmed by SUSAN MORENO, RAEANN ([id number]), managing editor MIGUEL ANGEL DEAL ([id number]) on 06/15/2022 12:35:03 PM Referred By: ROSCOE Confirmed By:RAEANN DAVIS MD
--- NOTE | 2022-06-13 20:13 | EX.ED.DYSGE1 ---
HPI History of Present Illness Chief Complaint: Confusion Informant: patient Onset/Context/Timing Onset: Today Timing: Continuous Current Severity: Moderate Maximum Severity: Moderate Narrative Narrative: 57-year-old male history of chronic kidney disease and renal transplant done in [place] in 2016. Also prior history of encephalopathy, pancytopenia, UTIs and is currently a resident at the [facility]. Today reportedly sent in for mental status change. Patient is very limited informant. He does not know month or year. He does know he is at the hospital. We are trying to get [facility] the [facility] so I get more information from them. Prior similar symptoms: Yes Recent Illness/Hospitalization: Yes [facility] Medical History Anemia in chronic illness Bladder dysfunction Bronchitis Chronic kidney disease, stage 3b CKD (chronic kidney disease), stage III Congenital nystagmus DVT (deep venous thrombosis) History of DVT (deep vein thrombosis) History of encephalopathy History of pulmonary embolism HTN (hypertension) Immunosuppressed status Mild intellectual disability Neurogenic bladder disorder Neutropenia Pancytopenia Pulmonary embolism Severe protein-calorie malnutrition Urinary retention Vocal cord dysfunction Home Medications mycophenolate mofetil 500 mg tablet 500 mg PO 0900,2100 Anti-Rejection 07/14/16 [History Last Taken 06/02/22] multivitamin 1 tab PO QHS supplement 02/13/22 [History Last Taken 06/02/22] acetaminophen 325 mg tablet (Tylenol) 650 mg PO Q6H PRN PRN Pain 1-10 Or Fever>100.7 #0 tabs 04/21/22 [Rx Last Taken 06/02/22] sodium bicarbonate 650 mg tablet 1,300 mg PO TID #6 tabs 04/21/22 [Rx Last Taken 06/03/22] dronabinol 2.5 mg capsule 2.5 mg PO BIDAC #10 caps 05/04/22 [Rx Last Taken 06/02/22] rifaximin 550 mg tablet (Xifaxan) 550 mg PO BID #0 tabs 05/04/22 [Rx Last Taken Unknown] tacrolimus 0.5 mg capsule, immediate-release 0.5 mg PO BID #0 caps 05/04/22 [Rx Last Taken 06/02/22] mirtazapine 30 mg tablet 30 mg PO QHS DEPRESSION 06/03/22 [History Last Taken 06/02/22] lactulose 20 gram/30 mL oral solution 30 ml PO Q4 06/13/22 [History Last Taken Unknown] Allergy/AdvReac Type Severity Reaction Status Date / Time anything red AdvReac Hives Uncoded 06/03/22 08:09 Family History Mother Hypertension Father Diabetes Surgical History Kidney transplant recipient S/P arteriovenous (AV) fistula creation Social History household members: none housing: half-way Smoking Status: Never smoker second hand exposure: No alcohol intake: never substance use type: does not use caffeine: No ROS ROS ED ROS Narrative Patient denies recent illness but he is a very limited informant. Review of Systems ROS Unobtainable: due to encephalopathy EXAM Physical Exam Narrative Exam Narrative: 57-year-old male vital signs stable afebrile. He does not look septic or toxic. He is afebrile. Pulse ox 97% on room air no hypoxia. He is in no distress. H EENT exam unremarkable atraumatic. Neck nontender no lymphadenopathy. No meningismus. Lungs clear to auscultation bilaterally. Heart regular rhythm rate about 85 no murmur. Chest wall nontender. Abdomen soft nontender. No peritoneal signs. Moving all 4 extremities. Neurologically he is awake. He is alert. However he is confused to month and year. He does know that he is in the hospital. He is moving all 4 extremities. There is no focal motor deficits. Clinically he appears to be encephalopathic. Const Vital Signs: 06/13/22 19:49 Temperature 98.2 F Temperature Source Oral Pulse Rate 85 Respiratory Rate 18 Blood Pressure 131/76 H Blood Pressure Mean 94 Pulse Ox 97 Oxygen Delivery Method Room Air Positive well nourished and well developed; Negative for obese, cachectic, contractures or unkempt General Appearance ED: well developed and NAD; Negative for unkempt, cachectic, contractures, cyanotic, diaphoretic or pallor Nutritional Appearance: Negative for cachectic or obese HEENT Reports moist mucous membranes; Denies dry mucous membranes Negative for trauma or tenderness Mouth ED: No dry mucous membranes Mouth: No dry mucous membranes Eyes PERRL and EOMs intact bilaterally General Eye ED: Negative for pale conjunctiva or scleral icterus Neck no lymphadenopathy, supple and no JVD General: Negative for tenderness Lymph Lymphatic: Negative for other Chest Wall inspection of chest normal and palpation of chest normal Resp normal respiratory effort and clear to auscultation bilaterally Effort and Inspection: Negative for retractions Auscultation: Negative for rales or rhonchi Cardio regular rate, regular rhythm, S1 normal heart sound, S2 normal heart sound and no murmurs GI normal to inspection, nondistended, normoactive bowel sounds, non-tender, non-distended and no masses Inspection: Negative for abdominal distention Auscultation: normoactive bowel sounds Palpation: soft; Negative for tender or guarding Back/Spine no CVA tenderness General Back: Negative for CVA tenderness Cervical Spine: Negative for cervical spine tenderness Thoracic Spine / Upper Back: Negative for thoracic spinal tenderness Lumbar Spine / Lower Back: Negative for lumbar spinal tenderness Extremity normal to inspection Extremity Narrative: Fistula right forearm. Good thrill. General Extremety ED: Negative for edema or tenderness General Extremity: Negative for edema Neuro No oriented x3 Neuro Narrative: Confused to month and year. Does not know place. Does not know president. Sensorium / Orientation: alert Motor Exam: strength 5/5 throughout Psych mental status grossly normal Appearance: Negative for unkempt Attitude: No agitated Mood & Affect: Negative for depressed, anxious or tearful Skin no rashes or lesions noted and no wounds General Skin Exam: elasticity normal; Negative for jaundice or pallor Lesions: No lesion noted Rashes: No rashes noted Trauma: Negative for abrasion Wounds: Negative for wounds noted MDM MDM MDM Narrative Medical decision making narrative: 57-year-old male with mental status change seems confused. Is likely encephalopathic. Chest x-ray and labs are being obtained. Did review his prior records and labs. I am awaiting to speak to the nursing for further history. He has had multiple CAT scans in the last several months I do not think he needs one emergently at this time unless I do not come up with specific cause for his confusion. Lab Data Attestation: I reviewed the patient's lab results. Lab results narrative: CBC shows a white count of 4.1. H&H 9.4 and 29.4. Platelets 145. History of pancytopenia. Consistent with prior labs. CMP shows a sodium of 147 gap of 7 BUN of 20 creatinine 1.51. Liver enzymes unremarkable to 36. Labs: Laboratory Results - last 24 hr 06/13/22 06/13/22 06/13/22 19:58 19:58 19:58 WBC 4.1 L RBC 3.03 L Hgb 9.4 L Hct 29.4 L MCV 97.0 H MCH 31.0 MCHC 32.0 RDW Std Deviation 52.1 H RDW Coeff of Anil 14.6 Plt Count 145 L MPV 10.9 Immature Gran % (Auto) 0.200 Neut % (Auto) 57.2 Lymph % (Auto) 14.8 L [place] % (Auto) 11.2 H Eos % (Auto) 15.6 H Baso % (Auto) 1.0 Absolute Neuts (auto) 2.4 Absolute Lymphs (auto) 0.61 L Nucleated RBC % 0 Sodium 147 H Potassium 4.1 Chloride 117 H Carbon Dioxide 23.0 Anion Gap 7 BUN 20 H Creatinine 1.51 H Estim Creat Clear Calc 56.92 Est GFR (MDRD) Af Amer 62 Est GFR (MDRD) Non-Af 51 L BUN/Creatinine Ratio 13.2 Glucose 111 H Calcium 8.0 L Total Bilirubin 0.90 AST 52 H ALT 54 Alkaline Phosphatase 113 Ammonia 36.0 H Total Protein 6.2 L Albumin 2.9 L Globulin 3.3 Albumin/Globulin Ratio 0.9 Urine Color Urine Clarity Urine pH Ur Specific [place] Urine Protein Urine Glucose (UA) Urine Ketones Urine Occult Blood Urine Nitrite Urine Bilirubin Urine Urobilinogen Ur Leukocyte Esterase Urine RBC Urine WBC Ur Squamous Epith Cells Urine Bacteria Urine Mucus 06/13/22 20:45 WBC RBC Hgb Hct MCV MCH MCHC RDW Std Deviation RDW Coeff of Anil Plt Count MPV Immature Gran % (Auto) Neut % (Auto) Lymph % (Auto) [place] % (Auto) Eos % (Auto) Baso % (Auto) Absolute Neuts (auto) Absolute Lymphs (auto) Nucleated RBC % Sodium Potassium Chloride Carbon Dioxide Anion Gap BUN Creatinine Estim Creat Clear Calc Est GFR (MDRD) Af Amer Est GFR (MDRD) Non-Af BUN/Creatinine Ratio Glucose Calcium Total Bilirubin AST ALT Alkaline Phosphatase Ammonia Total Protein Albumin Globulin Albumin/Globulin Ratio Urine Color Yellow Urine Clarity Sl. Cloudy Urine pH 5.0 Ur Specific [place] 1.025 Urine Protein 100 H Urine Glucose (UA) Normal Urine Ketones 5 H Urine Occult Blood 250 H Urine Nitrite Negative Urine Bilirubin Negative Urine Urobilinogen Normal Ur Leukocyte Esterase 25 H Urine RBC > 100 SEEN Urine WBC 5-10 SEEN Ur Squamous Epith Cells 0-5 SEEN Urine Bacteria 0 SEEN Urine Mucus 0 SEEN Radiography Chest X-Ray - ED: 1 View, Read by ED Physician, Heart, Mediastinum, Bony Structures and Chronic Changes Diagnostic Testing: Clinical Impression(s) from Imaging Studies Chest X-Ray 06/13/22 20:23 IMPRESSION: Partial resolution left lung infiltrate consistent with pneumonia. Recommend further follow-up complete resolution. Electronically Signed: Peter Malloy MD at 20:37 EST Reading Location ID and State: [facility] / [place] Tel , Service support , Chest x-ray, portable, single view shows what appears to be resolution of the left lung infiltrate as interpreted by the radiologist. I also interpreted the film it looks similar to prior chest x-rays. Clinically has no signs of pneumonia. Rhythm Strip Rhythm Strip: Sinus Rhythm Rate: 90 Ectopy: None EKG Initial EKG: Attestation: I personally reviewed and interpreted this EKG as follows: Interpretation: Sinus Rhythm and No Acute Injury Pattern Comments: Normal sinus rhythm rate of 90 no acute signs of AR or ischemia. Discharge Plan Triage Chief Complaint: Confusion ED Provider: Dillon Harrison Dx/Rx/DC Orders Clinical Impression: Altered mental status, History of kidney transplant, Hx of encephalopathy Prescriptions: No Action mycophenolate mofetil 500 MG tablet 500 mg PO 0900,2100 Label Comments: anti rejection multivitamin Tablet 1 tab PO QHS acetaminophen [Tylenol] 325 mg Tablet 650 mg PO Q6H PRN PRN (Reason: Pain 1-10 Or Fever>100.7) Qty: 0 0RF sodium bicarbonate 650 mg tablet 1,300 mg PO TID Qty: 6 0RF dronabinol 2.5 mg Capsule 2.5 mg PO BIDAC Qty: 10 0RF Xifaxan 550 mg Tablet 550 mg PO BID Qty: 0 0RF tacrolimus 0.5 mg Capsule 0.5 mg PO BID Qty: 0 0RF mirtazapine 30 mg tablet 30 mg PO QHS lactulose 20 gram/30 mL solution 30 ml PO Q4 Primary Care Provider: Mike Bella Referrals: Mike Bella MD [Primary Care Provider] - Disposition Disposition: Acute Care Hospital [facility]
[2022-06-13 20:22] LABS: Absolute Lymphocyte Count 0.61 X10^3/uL (0.83-4.51); Absolute Neutrophil Count 2.4 X10^3/uL (2.0-7.7); Basophil# 0.04 X10^3/uL; Eosinophil# 0.64 X10^3/uL; Eosinophils% 15.6 % (0-5); Hematocrit 29.4 % (40-54); Hemoglobin 9.4 g/dL (13.0-16.5); Lymphocyte # 0.61 X10^3/ul (0.83-4.51); Lymphocyte % 14.8 % (19-41); Mean Platelet Vol. 10.9 fl (6.2-12.0); Monocyte# 0.46 X10^3/uL; Monocyte% 11.2 % (0-10); NRBC Flagged by Analyzer 0 % (0-5); Neutrophil # 2.35 X10^3/uL (2.7-7.7); Neutrophil % 57.2 % (47-70); Platelet Count 145 K/mm3 (150-450); RBC Distribution Width CV 14.6 % (11.6-14.6); RBC Distribution Width SD 52.1 fl (35.1-43.9); Red Blood Count 3.03 M/mm3 (4.6-6.2); White Blood Count 4.1 K/mm3 (4.4-11.0)
--- NOTE | 2022-06-13 20:23 | RAD_ITS ---
INDICATION: Mental status change EXAMINATION/TECHNIQUE: X-RAY - portable upright AP chest x-ray COMPARISON: 06/03/2022 FINDINGS: LINES/DEVICES: None. LUNGS: Decreased but persistent left lung infiltrates. No consolidations or pleural effusions. No vascular congestion. MEDIASTINUM AND CARDIOVASCULAR STRUCTURES: Cardiac silhouette stable at upper normal limits. BONES AND SOFT TISSUES: No acute changes. RAD/Chest 1 View (Portable) IMPRESSION: Partial resolution left lung infiltrate consistent with pneumonia. Recommend further follow-up complete resolution. Electronically Signed: Peter Malloy MD at 20:37 EST ,
[2022-06-13 20:34] LABS: ALB/GLOB Ratio 0.9 RATIO (0.9-2.4); AST(SGOT) 52 U/L (15-37); Alanine Aminotransfer ALT/SGPT 54 U/L (16-61); Albumin, Serum 2.9 g/dL (3.2-5.0); Alkaline Phosphatase 113 U/L (45-117); Anion Gap 7 (5-15); BUN 20 mg/dL (7-18); BUN/Creat Ratio 13.2 RATIO (10-20); Chloride 117 mmol/L (98-107); Creatinine, Serum 1.51 mg/dL (0.70-1.30); EST Glomerular Filtration Rate 51 mL/min (>60); Est Glom Filt Rate - Afr Amer 62 mL/min (>60); Estimated Creatinine Clearance 56.92 ml/min; Globulin 3.3 g/dL (2.2-4.2); Glucose 111 mg/dL (74-106); Potassium 4.1 mmol/L (3.5-5.1); Protein, Total 6.2 g/dL (6.4-8.2); Sodium Level 147 mmol/L (136-145)
[2022-06-13 20:49] LABS: Bacteria 0 SEEN /hpf (None Seen); Mucous, Urine 0 SEEN /hpf (<or=2+)
[2022-06-13 20:53] LABS: Color, Urine Yellow (Yellow); Glucose, Dipstick Normal (Normal); Ketone-Dipstick 5 mg/dl (Negative); Leukocyte Esterase-Dipstick 25 /ul (Negative); Nitrite-Dipstick Negative (Negative); Occult Blood-Urine 250 /ul (Negative); Protein-Dipstick 100 mg/dl (Negative); Specific Gravity, Urine 1.025 (1.002-1.030); Urine Bilirubin Dipstick Negative (Negative); Urine Clarity Sl. Cloudy (Clear); Urine Urobilinogen Normal (Normal)
[2022-06-13 21:16] LABS: Red Blood Cells-Urine > 100 SEEN /hpf (0-5); Squamous Epithelial Cells - UA 0-5 SEEN /hpf (0-5); White Blood Cells 5-10 SEEN /hpf (0-5)
[2022-06-13] MEDS: Tacrolimus 0.5 MG Capsule PO (21:27)
[2022-06-13] MEDS: Mycophenolate Mofetil 250 MG Capsule 500 MG PO (21:27)
--- NOTE | 2022-06-13 22:12 | PCM.HP.STD ---
HPI - General General Date of Admission: 06/13/22 Date of Service: 06/13/22 Chief Complaint: Altered mental status HPI Narrative ROOSEVELT GARCIA, is a 57 M with a significant history of CKD stage IIIa; renal transplant; DVT; neurogenic bladder with frequent UTI; recurrent encephalopathy and increased ammonia levels who lives at the [facility] presenting to the emergency department with altered mental status. History was taken from emergency department doctor who discussed case with a nurse at the [facility] who also did not know patient too much. Reportedly in the past 1 to 2 days patient has been confused. Patient was found walking around and senior care says they are unable to take a patient at this time. Patient is unable to provide history except he stated that he has belly pain. Also he reportedly asked whether his family knows that he is at hospital. Work-up in the emergency department was unremarkable except for chronic changes. Patient was admitted to our hospital from 06/03/2022 to 06/09/2022 for acute encephalopathy secondary to VRE UTI and hyperammonemia. [facility] Medical History Anemia in chronic illness Bladder dysfunction Bronchitis Chronic kidney disease, stage 3b CKD (chronic kidney disease), stage III Congenital nystagmus DVT (deep venous thrombosis) History of DVT (deep vein thrombosis) History of encephalopathy History of pulmonary embolism HTN (hypertension) Immunosuppressed status Mild intellectual disability Neurogenic bladder disorder Neutropenia Pancytopenia Pulmonary embolism Severe protein-calorie malnutrition Urinary retention Vocal cord dysfunction Home Medications mycophenolate mofetil 500 mg tablet 500 mg PO 0900,2100 Anti-Rejection 07/14/16 [History Last Taken 06/02/22] multivitamin 1 tab PO QHS supplement 02/13/22 [History Last Taken 06/02/22] acetaminophen 325 mg tablet (Tylenol) 650 mg PO Q6H PRN PRN Pain 1-10 Or Fever>100.7 #0 tabs 04/21/22 [Rx Last Taken 06/02/22] sodium bicarbonate 650 mg tablet 1,300 mg PO TID #6 tabs 04/21/22 [Rx Last Taken 06/03/22] dronabinol 2.5 mg capsule 2.5 mg PO BIDAC #10 caps 05/04/22 [Rx Last Taken 06/02/22] rifaximin 550 mg tablet (Xifaxan) 550 mg PO BID #0 tabs 05/04/22 [Rx Last Taken Unknown] tacrolimus 0.5 mg capsule, immediate-release 0.5 mg PO BID #0 caps 05/04/22 [Rx Last Taken 06/02/22] mirtazapine 30 mg tablet 30 mg PO QHS DEPRESSION 06/03/22 [History Last Taken 06/02/22] lactulose 20 gram/30 mL oral solution 30 ml PO Q4 06/13/22 [History Last Taken Unknown] Allergy/AdvReac Type Severity Reaction Status Date / Time anything red AdvReac Hives Uncoded 06/03/22 08:09 Family History Mother Hypertension Father Diabetes Surgical History Kidney transplant recipient S/P arteriovenous (AV) fistula creation Social History household members: none housing: senior care Smoking Status: Never smoker second hand exposure: No alcohol intake: never substance use type: does not use caffeine: No ROS Review of Systems ROS Unobtainable: due to encephalopathy Vital Signs Vital Signs Vital Signs: 06/13/22 19:49 Temperature 98.2 F Temperature Source Oral Pulse Rate 85 Respiratory Rate 18 Blood Pressure 131/76 H Blood Pressure Mean 94 Pulse Ox 97 Oxygen Delivery Method Room Air Weight Weight: 72.8 kg Body Mass Index (BMI) 21.7 Physical Exam Narrative Physical exam: General: Well-nourished, well-developed. Head: Normocephalic, atraumatic, no tenderness Eyes: Vision is grossly intact. EOMI ENT, no trauma, moist mucous membranes, no rhinorrhea Neck: Nontender, No thyromegaly. CVS: Regular rate and rhythm. S1-S2 present. No murmur, gallop or rub. Respiratory : clear to auscultation bilaterally, chest wall nontender, no wheezing Abdomen: Soft, nontender, nondistended, normal bowel sounds, no masses : Deferred Back: Nontender, no CVA tenderness. Extremities: Nontender full range of motion, no trauma Skin: Normal color, no trauma, abrasions Neuro: Alert, patient knows that he is at hospital. He gives no answer for the months or the year. 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 Psychiatry: Normal mood. Normal affect. Not depressed. Not anxious. Results Lab / Micro Data Result Diagrams: 06/13/22 19:58 06/13/22 19:58 Labs: Laboratory Results - last 24 hr 06/13/22 19:58: WBC 4.1 L, RBC 3.03 L, Hgb 9.4 L, Hct 29.4 L, MCV 97.0 H, MCH 31.0, MCHC 32.0, RDW Std Deviation 52.1 H, RDW Coeff of Anil 14.6, Plt Count 145 L, MPV 10.9, Immature Gran % (Auto) 0.200, Neut % (Auto) 57.2, Lymph % (Auto) 14.8 L, [place] % (Auto) 11.2 H, Eos % (Auto) 15.6 H, Baso % (Auto) 1.0, Absolute Neuts (auto) 2.4, Absolute Lymphs (auto) 0.61 L, Nucleated RBC % 0 06/13/22 19:58: Sodium 147 H, Potassium 4.1, Chloride 117 H, Carbon Dioxide 23.0, Anion Gap 7, BUN 20 H, Creatinine 1.51 H, Estim Creat Clear Calc 56.92, Est GFR (MDRD) Af Amer 62, Est GFR (MDRD) Non-Af 51 L, BUN/Creatinine Ratio 13.2, Glucose 111 H, Calcium 8.0 L, Total Bilirubin 0.90, AST 52 H, ALT 54, Alkaline Phosphatase 113, Total Protein 6.2 L, Albumin 2.9 L, Globulin 3.3, Albumin/Globulin Ratio 0.9 06/13/22 19:58: Ammonia 36.0 H 06/13/22 20:45: Urine Color Yellow, Urine Clarity Sl. Cloudy, Urine pH 5.0, Ur Specific [place] 1.025, Urine Protein 100 H, Urine Glucose (UA) Normal, Urine Ketones 5 H, Urine Occult Blood 250 H, Urine Nitrite Negative, Urine Bilirubin Negative, Urine Urobilinogen Normal, Ur Leukocyte Esterase 25 H, Urine RBC > 100 SEEN, Urine WBC 5-10 SEEN, Ur Squamous Epith Cells 0-5 SEEN, Urine Bacteria 0 SEEN, Urine Mucus 0 SEEN Rhythm Strip Rhythm Strip: Sinus Rhythm Rate: 90 Ectopy: None Radiology Impression Chest X-Ray 06/13/22 20:23 IMPRESSION: Partial resolution left lung infiltrate consistent with pneumonia. Recommend further follow-up complete resolution. Electronically Signed: Peter Malloy MD at 20:37 EST Reading Location ID and State: [facility] / [place] Tel , Service support , Assessment & Plan Assessment/Plan (1) Acute encephalopathy: (2) Hyperammonemia: PLAN: Plan Acute encephalopathy Etiology unclear. Urinalysis was reviewed. Urinalysis unimpressive compared to previous. Urine culture ordered emergency department, follow-up. Ammonia level was only mildly elevated and is unimpressive. Chest x-ray interpreted by radiologist as Partial resolution of left lung infiltrate consistent with pneumonia. Chest x-ray on presentation and previous chest x-ray was visualized and independently interpreted. I agree with radiologist interpretation. Patient with no fever. White count is chronically low. Clinically patient does not have acute pneumonia explain his symptoms. Unclear whether medication is a contributing to this. While will continue with patient's mirtazapine will hold of dronabinol for now. Last TSH on file was on 04/25/2022. TSH at that time was normal. Check vitamin B12. Neurogenic bladder with urinary retention. Needs to assist patient to straight cath. History of hyperammonemia Ammonia level on presentation was 36. Ammonia level on 06/08/2019 was 64. Lactulose continued. Trend ammonia level. History of kidney transplant and CKD stage IIIa Creatinine presentation is within baseline. Tacrolimus and mycophenolate continued. Trend CMP. Sodium bicarbonate continued. DVT prophylaxis: Subcutaneous Lovenox ordered. Charges/Coding Visit Charges Inpatient E&M: 67305 Init Hosp L3
[2022-06-13 22:31] VITALS: BP 122/78; PULSE 82; RESP 19; TEMP 37; O2SAT 97
[2022-06-13 23:23] VITALS: BMI 20.2
[2022-06-13 23:54] VITALS: BP 118/70; PULSE 86; RESP 18; TEMP 36.6; O2SAT 98
[2022-06-14] VITALS (7 sets, daily range): BP systolic 116–136; BP diastolic 70–81; PULSE 77–90; RESP 16–18; TEMP 36.6–37.3; O2SAT 94–100
[2022-06-14] MEDS: 0.9% Normal Saline 1,000 ML 75 ML IV ×2 (00:08→13:41)
[2022-06-14] MEDS: Mirtazapine 30 MG Tablet PO ×2 (00:29→21:57)
[2022-06-14] MEDS: Lactulose 20 GM/30 ML UDC PO ×5 (00:29→21:55)
[2022-06-14 06:26] LABS: Absolute Lymphocyte Count 0.59 X10^3/uL (0.83-4.51); Absolute Neutrophil Count 1.8 X10^3/uL (2.0-7.7); Basophil# 0.03 X10^3/uL; Basophil% 0.9 % (0-1); Eosinophil# 0.49 X10^3/uL; Eosinophils% 14.9 % (0-5); Hematocrit 27.9 % (40-54); Hemoglobin 8.7 g/dL (13.0-16.5); Lymphocyte # 0.59 X10^3/ul (0.83-4.51); Mean Corp Hgb Conc 31.2 g/dL (32-36); Mean Corpuscular Hgb 30.5 pg (27.0-32.0); Mean Corpuscular Volume 97.9 fL (80-94); Mean Platelet Vol. 11.5 fl (6.2-12.0); Monocyte# 0.38 X10^3/uL; Monocyte% 11.6 % (0-10); NRBC Flagged by Analyzer 0 % (0-5); Neutrophil # 1.78 X10^3/uL (2.7-7.7); Neutrophil % 54.3 % (47-70); POSITIVE DIFFERENTIAL YES; Platelet Count 137 K/mm3 (150-450); RBC Distribution Width CV 14.6 % (11.6-14.6); Red Blood Count 2.85 M/mm3 (4.6-6.2); White Blood Count 3.3 K/mm3 (4.4-11.0)
[2022-06-14 06:31] LABS: Differential Indicated SCAN CRITERIA MET
[2022-06-14 06:44] LABS: ALB/GLOB Ratio 0.9 RATIO (0.9-2.4); AST(SGOT) 45 U/L (15-37); Alanine Aminotransfer ALT/SGPT 45 U/L (16-61); Albumin, Serum 2.6 g/dL (3.2-5.0); Alkaline Phosphatase 100 U/L (45-117); Anion Gap 6 (5-15); BUN 21 mg/dL (7-18); BUN/Creat Ratio 16.3 RATIO (10-20); Calcium,Total 7.8 mg/dL (8.5-10.1); Chloride 118 mmol/L (98-107); Creatinine, Serum 1.29 mg/dL (0.70-1.30); EST Glomerular Filtration Rate 61 mL/min (>60); Est Glom Filt Rate - Afr Amer 74 mL/min (>60); Estimated Creatinine Clearance 61.86 ml/min; Globulin 2.9 g/dL (2.2-4.2); Glucose 98 mg/dL (74-106); Magnesium 1.6 mg/dL (1.6-2.6); Potassium 4.2 mmol/L (3.5-5.1); Protein, Total 5.5 g/dL (6.4-8.2); Sodium Level 144 mmol/L (136-145)
[2022-06-14] MEDS: Sodium Bicarbonate 650 MG Tablet 1300 MG PO ×3 (06:45→21:58)
[2022-06-14 06:57] LABS: Differential Comment SCANNED
[2022-06-14] MEDS: Enoxaparin 40 MG/0.4 ML Syringe SC (11:15)
[2022-06-14] MEDS: rifAXIMin 550 MG Tablet PO ×2 (11:16→22:00)
[2022-06-14] MEDS: Mycophenolate Mofetil 250 MG Capsule 500 MG PO ×2 (11:16→21:55)
[2022-06-14] MEDS: Tacrolimus 0.5 MG Capsule PO ×2 (11:16→21:58)
--- NOTE | 2022-06-14 15:19 | PN.HOSP_ITS ---
Reason for Visit Reason for Visit: Diagnoses Disorder of urea cycle metabolism, unspecified (06/13/22) Encephalopathy, unspecified (06/13/22) Subjective Subjective Patient seen and examined. He was brought in on account of acute encephalopathy. He has no complaints today and appears to be at his baseline. Review of symptoms otherwise negative. His ammonia was a bit elevated and he is on lactulose. Objective Data Objective Data Vital Signs: Vital Signs Temp Pulse Resp BP Pulse Ox O2 Del Method 98 F 80 18 120/70 96 Room Air 06/14/22 11:50 06/14/22 14:30 06/14/22 14:30 06/14/22 11:50 06/14/22 14:30 06/14/22 14:30 Oxygen Delivery Method Room Air Weight: 149 lb 0.52 oz Body Mass Index (BMI) 20.2 Intake & Output: Intake and Output for Last 24 Hours 06/12/22 06/13/22 06/14/22 23:59 23:59 23:59 Intake Total 1600 / 1600 Output Total 1280 / 1280 Balance 320 / 320 Lab / Micro Data Result Diagrams: 06/14/22 06:07 06/14/22 06:07 Labs: Laboratory Results - last 24 hr 06/13/22 19:58: WBC 4.1 L, RBC 3.03 L, Hgb 9.4 L, Hct 29.4 L, MCV 97.0 H, MCH 31.0, MCHC 32.0, RDW Std Deviation 52.1 H, RDW Coeff of Anil 14.6, Plt Count 145 L, MPV 10.9, Immature Gran % (Auto) 0.200, Neut % (Auto) 57.2, Lymph % (Auto) 14.8 L, [place] % (Auto) 11.2 H, Eos % (Auto) 15.6 H, Baso % (Auto) 1.0, Absolute Neuts (auto) 2.4, Absolute Lymphs (auto) 0.61 L, Nucleated RBC % 0 06/13/22 19:58: Sodium 147 H, Potassium 4.1, Chloride 117 H, Carbon Dioxide 23.0, Anion Gap 7, BUN 20 H, Creatinine 1.51 H, Estim Creat Clear Calc 56.92, Est GFR (MDRD) Af Amer 62, Est GFR (MDRD) Non-Af 51 L, BUN/Creatinine Ratio 13.2, Glucose 111 H, Calcium 8.0 L, Total Bilirubin 0.90, AST 52 H, ALT 54, Alkaline Phosphatase 113, Total Protein 6.2 L, Albumin 2.9 L, Globulin 3.3, Albumin/Globulin Ratio 0.9 06/13/22 19:58: Ammonia 36.0 H 06/13/22 20:45: Urine Color Yellow, Urine Clarity Sl. Cloudy, Urine pH 5.0, Ur Specific Fishtail 1.025, Urine Protein 100 H, Urine Glucose (UA) Normal, Urine Ketones 5 H, Urine Occult Blood 250 H, Urine Nitrite Negative, Urine Bilirubin Negative, Urine Urobilinogen Normal, Ur Leukocyte Esterase 25 H, Urine RBC > 100 SEEN, Urine WBC 5-10 SEEN, Ur Squamous Epith Cells 0-5 SEEN, Urine Bacteria 0 SEEN, Urine Mucus 0 SEEN 06/14/22 06:07: WBC 3.3 L, RBC 2.85 L, Hgb 8.7 L, Hct 27.9 L, MCV 97.9 H, MCH 30.5, MCHC 31.2 L, RDW Std Deviation 52.0 H, RDW Coeff of Anil 14.6, Plt Count 137 L, MPV 11.5, Immature Gran % (Auto) 0.300, Neut % (Auto) 54.3, Lymph % (Auto) 18.0 L, Cam[place] % (Auto) 11.6 H, Eos % (Auto) 14.9 H, Baso % (Auto) 0.9, Absolute Neuts (auto) 1.8 L, Absolute Lymphs (auto) 0.59 L, Nucleated RBC % 0, Differential Comment SCANNED, Diff Path Review August06/14/22 06:07: Sodium 144, Potassium 4.2, Chloride 118 H, Carbon Dioxide 20.0 L , Anion Gap 6, BUN 21 H, Creatinine 1.29, Estim Creat Clear Calc 61.86, Est GFR (MDRD) Af Amer 74, Est GFR (MDRD) Non-Af 61, BUN/Creatinine Ratio 16.3, Glucose 98, Calcium 7.8 L, Magnesium 1.6, Total Bilirubin 0.90, AST 45 H, ALT 45, Alkaline Phosphatase 100, Total Protein 5.5 L, Albumin 2.6 L, Globulin 2.9, Albumin/Globulin Ratio 0.9 06/14/22 06:07: Ammonia 74.0 H Radiography Diagnostic Testing: Radiology Impression Chest X-Ray 06/13/22 20:23 IMPRESSION: Partial resolution left lung infiltrate consistent with pneumonia. Recommend further follow-up complete resolution. Electronically Signed: Peter Malloy MD at 20:37 EST Reading Location ID and State: [address] [place] [address] Tel , Service support , Rhythm Strip Rhythm Strip: Sinus Rhythm Rate: 90 Ectopy: None Physical Exam Const alert and no apparent distress HEENT head/scalp atraumatic, moist oral mucous membranes and oropharynx normal Mouth: oral and palatal mucosa normal Eyes PERRL, EOMs intact bilaterally and conjunctivae normal Neck no lymphadenopathy, supple and no JVD Resp Resp Narrative: Mildly diminished breath sounds bibasilarly. No wheezes or crackles. On room air. Cardio regular rate, regular rhythm, S1 normal heart sound, S2 normal heart sound and no murmurs GI normal to inspection, nondistended, normoactive bowel sounds, soft to palpation, non-tender and non-distended Extremity normal to inspection, full ROM and no clubbing, cyanosis or edema Neuro CN's II-XII intact bilaterally, moves all extremities and no focal motor deficits Neuro Narrative: Congenital nystagmus. Sensorium / Orientation: awake and alert Motor Exam: strength 5/5 throughout Psych affect normal Assessment & Plan Assessment/Plan (1) Acute encephalopathy: PLAN: Plan #Acute encephalopathy * likely due to elevated ammonia level * he was recently discharged after being managed for recurrent UTI. He completed a course of daptomycin then. * urinalysis this admission didnt show evidence of UTI * on lactulose. Ammonia level is 74 today. * Titrate lactulose until he has 2-3 loose bowel movements daily. * Liver enzymes are within normal limits. * Trend ammonia level. * dronabinol on hold. * * #ESRD * Has history of kidney transplant in 2016. On tacrolimus and mycophenolate. * on sodium bicarb * #History of atonic bladder: Self caths regularly. DVT prophylaxis: Lovenox Disposition: anticipate dc back to SNF within 24-48 hours once ammonia level trends down Charges/Coding Visit Charges Inpatient E&M: 05410 Subs Hosp L2
[2022-06-14] MEDS: Ensure Plus High Protein 120 ML LIQUID PO ×2 (17:31→21:57)
[2022-06-14] MEDS: Multivitamins,Therapeutic Tablet 1 TABLET PO (21:57)
[2022-06-15] MEDS: 0.9% Normal Saline 1,000 ML 75 ML IV (01:10)
[2022-06-15 04:50] VITALS: BP 118/76; PULSE 74; RESP 16; TEMP 36.6; O2SAT 95
[2022-06-15] MEDS: Sodium Bicarbonate 650 MG Tablet 1300 MG PO ×2 (06:16→13:44)
[2022-06-15] MEDS: Lactulose 20 GM/30 ML UDC PO ×3 (06:16→13:44)
[2022-06-15 06:25] LABS: Absolute Neutrophil Count 1.9 X10^3/uL (2.0-7.7); Basophil# 0.04 X10^3/uL; Basophil% 1.1 % (0-1); Eosinophil# 0.55 X10^3/uL; Eosinophils% 15.7 % (0-5); Hematocrit 28.3 % (40-54); Hemoglobin 8.8 g/dL (13.0-16.5); Lymphocyte % 17.1 % (19-41); Mean Corp Hgb Conc 31.1 g/dL (32-36); Mean Corpuscular Hgb 30.7 pg (27.0-32.0); Mean Corpuscular Volume 98.6 fL (80-94); Mean Platelet Vol. 11.7 fl (6.2-12.0); Monocyte# 0.45 X10^3/uL; Monocyte% 12.8 % (0-10); NRBC Flagged by Analyzer 0 % (0-5); Neutrophil # 1.86 X10^3/uL (2.7-7.7); POSITIVE DIFFERENTIAL YES; Platelet Count 141 K/mm3 (150-450); RBC Distribution Width CV 14.4 % (11.6-14.6); RBC Distribution Width SD 51.9 fl (35.1-43.9); Red Blood Count 2.87 M/mm3 (4.6-6.2); White Blood Count 3.5 K/mm3 (4.4-11.0)
[2022-06-15 06:58] LABS: Differential Indicated SCAN CRITERIA MET
[2022-06-15 07:07] LABS: Macrocytosis 1+; Platelet Estimate SLT DEC (ADEQ)
[2022-06-15 08:11] LABS: Vitamin B12 524 pg/mL (211-911)
[2022-06-15 08:31] LABS: AST(SGOT) 40 U/L (15-37); Alanine Aminotransfer ALT/SGPT 43 U/L (16-61); Albumin, Serum 2.5 g/dL (3.2-5.0); Alkaline Phosphatase 94 U/L (45-117); Anion Gap 7 (5-15); BUN 19 mg/dL (7-18); BUN/Creat Ratio 17.1 RATIO (10-20); Calcium,Total 7.6 mg/dL (8.5-10.1); Chloride 116 mmol/L (98-107); Creatinine, Serum 1.11 mg/dL (0.70-1.30); EST Glomerular Filtration Rate 73 mL/min (>60); Est Glom Filt Rate - Afr Amer 88 mL/min (>60); Globulin 2.6 g/dL (2.2-4.2); Glucose 83 mg/dL (74-106); Potassium 4.2 mmol/L (3.5-5.1); Protein, Total 5.1 g/dL (6.4-8.2); Sodium Level 143 mmol/L (136-145)
--- NOTE | 2022-06-15 10:05 | CASEMGMT ---
Patient is from [facility]. STUART contacted patient's sister/POA Chandrakant. Chandrakant said the plan is for patient to return to [facility] as plans have not been made yet to move him anywhere else. STUART told Chandrakant STUART will let her know when patient is being discharged. STUART sent updates to [facility] via [facility]. Anna Kiryb MSW CHRISTINE
[2022-06-15 10:50] VITALS: BP 111/81; PULSE 81; RESP 18; TEMP 37; O2SAT 95
[2022-06-15] MEDS: Tacrolimus 0.5 MG Capsule PO (10:57)
[2022-06-15] MEDS: Mycophenolate Mofetil 250 MG Capsule 500 MG PO (10:58)
[2022-06-15] MEDS: Enoxaparin 40 MG/0.4 ML Syringe SC (10:58)
[2022-06-15] MEDS: rifAXIMin 550 MG Tablet PO (10:58)
--- NOTE | 2022-06-15 12:15 | CASEMGMT ---
JASMEET PINTO called sister, Chandrakant ANTHONY, to complete MCCOY form as patient is confused. JASMEET PINTO explained MCCOY form to sister, sister voiced understanding. Sister, Chandrakant, gave telephone consent. Copy placed in patient's room for family. MCCOY form filed in chart. Chandrakant had no further questions or concerns at this time.
[2022-06-15 12:41] LABS: Pathologist Review Reviewed
[2022-06-15 12:41] LABS: Pathologist Review Reviewed
--- NOTE | 2022-06-15 12:52 | TREXTCAR_ITS ---
Diet Diet Order/Speech Therapy: 06/13/22 23:23 Diet: Regular - General Food consistency:: Mechanical (Minced/Moist) Liquid Consistency:: Regular/Thin Diet Comments: Distant supervison Routine Orders/Code Status Routine Lab Work: CBC and BMP Code Status: Full Code Therapies Physical Therapy: Eval and Treat Occupational Therapy: Eval and Treat Problem/Diagnosis (1) Acute encephalopathy: Status: Acute Code(s): G93.40 - Encephalopathy, unspecified Allergies/Procedures Done in Hospital Allergies anything red Adverse Reaction (Uncoded 06/03/22 08:09) Hives Procedures: None Type of Care/Length of Stay Estimated LOS: Convalescent Care Less Than 30 days Type of Care Needed: Skilled Rehab Potential: Good Prognosis: Good Additional Orders/Day of Discharge Day of Discharge: 06/15/22 Dietary and Speech Recommendations Dietitian Recommendations/Changes: regular diet; will adjust diet textures to minced/moist per most recent DIRECTOR OF ADMISSIONS documentation. Recommend DIRECTOR OF ADMISSIONS consult. Ensure Plus High Protein 120mL 4x/day w/ medpass. Discharge Plan Admission Admit Date/Time: 06/13/22 22:16 Attending Provider: Jose Armando Tran Primary Care Provider: Mike Bella Consulting Providers: Raúl Calvillo ; Sarah Reyes Discharge Orders/Prescriptions Prescriptions: Continued mycophenolate mofetil 500 MG tablet 500 mg PO 0900,2100 Label Comments: anti rejection multivitamin Tablet 1 tab PO QHS acetaminophen [Tylenol] 325 mg Tablet 650 mg PO Q6H PRN PRN (Reason: Pain 1-10 Or Fever>100.7) Qty: 0 0RF sodium bicarbonate 650 mg tablet 1,300 mg PO TID Qty: 6 0RF dronabinol 2.5 mg Capsule 2.5 mg PO BIDAC Qty: 10 0RF Xifaxan 550 mg Tablet 550 mg PO BID Qty: 0 0RF tacrolimus 0.5 mg Capsule 0.5 mg PO BID Qty: 0 0RF mirtazapine 30 mg tablet 30 mg PO QHS lactulose 20 gram/30 mL solution 30 ml PO Q4 Referrals / Follow Up: Mike Bella MD [Primary Care Provider] - Disposition Disposition (needs filled in before D/C Order can be placed[facility]
--- NOTE | 2022-06-15 13:51 | CASEMGMT ---
STUART notified [facility] that patient will be returning today. Anna Kirby AUTOMOTIVE ARTIST CHRISTINE
[2022-06-15 13:52] VITALS: BP 111/81; PULSE 81; RESP 18; TEMP 37; O2SAT 95
[2022-06-15 14:35] VITALS: BP 125/79; PULSE 88; RESP 18; TEMP 37.2; O2SAT 95
--- NOTE | 2022-06-15 14:50 | PHA.DC.MR ---
Pharmacy Service has performed discharge medication reconciliation for this patient. The patient's discharge medication list was reviewed for discrepancies and discrepancies were resolved. Home Medications mycophenolate mofetil 500 mg tablet 500 mg PO 0900,2100 Anti-Rejection 07/14/16 multivitamin 1 tab PO QHS supplement 02/13/22 acetaminophen 325 mg tablet (Tylenol) 650 mg PO Q6H PRN PRN Pain 1-10 Or Fever>100.7 #0 tabs 04/21/22 sodium bicarbonate 650 mg tablet 1,300 mg PO TID #6 tabs 04/21/22 dronabinol 2.5 mg capsule 2.5 mg PO BIDAC #10 caps 05/04/22 rifaximin 550 mg tablet (Xifaxan) 550 mg PO BID #0 tabs 05/04/22 tacrolimus 0.5 mg capsule, immediate-release 0.5 mg PO BID #0 caps 05/04/22 mirtazapine 30 mg tablet 30 mg PO QHS DEPRESSION 06/03/22 lactulose 20 gram/30 mL oral solution 30 ml PO Q4 06/13/22
--- NOTE | 2022-06-15 15:19 | NURSING ---
Report called to nurse Dsouza for pt to be d/c returning to [facility].
--- NOTE | 2022-06-15 15:39 | CASEMGMT ---
Patient is ready for discharge back to [facility]. STUART sent orders to [facility] via [facility]. SW called [facility] to set up transport. Confirmation number is [id number]. Physicians will transport patient at 6p via wheelchair van. SW notified RN, trade union secretary, and [place] at [facility]. SW also called patient's sister Chandrakant and let her know about excelsior picker time. Plan: d/c back to [facility] under skilled level of care. [facility] Anna Kirby NEURODIAGNOSTIC TECH CHRISTINE
--- NOTE | 2022-06-15 16:09 | DS.PCM_ITS ---
Providers Date of Admission: 06/13/22 Primary Care Physician: Dr. Mike Belal MD Reason For Visit: ACUTE ENCEPHALOPATHY Diagnosis Discharge Diagnosis (1) Acute encephalopathy: Status: Acute Code(s): G93.40 - Encephalopathy, unspecified Medications at Discharge Home Medications mycophenolate mofetil 500 mg tablet 500 mg PO 0900,2100 Anti-Rejection 07/14/16 multivitamin 1 tab PO QHS supplement 02/13/22 acetaminophen 325 mg tablet (Tylenol) 650 mg PO Q6H PRN PRN Pain 1-10 Or Fever>100.7 #0 tabs 04/21/22 sodium bicarbonate 650 mg tablet 1,300 mg PO TID #6 tabs 04/21/22 dronabinol 2.5 mg capsule 2.5 mg PO BIDAC #10 caps 05/04/22 rifaximin 550 mg tablet (Xifaxan) 550 mg PO BID #0 tabs 05/04/22 tacrolimus 0.5 mg capsule, immediate-release 0.5 mg PO BID #0 caps 05/04/22 mirtazapine 30 mg tablet 30 mg PO QHS DEPRESSION 06/03/22 lactulose 20 gram/30 mL oral solution 30 ml PO Q4 06/13/22 Hospital Course Operations None Procedures None Summary of Care Provided Minutes Spent on Discharge: 35 Hospital Course: Per HPI: ROOSEVELT GARCIA, is a 57 M with a significant history of CKD stage IIIa; renal transplant; DVT; neurogenic bladder with frequent UTI; recurrent encephalopathy and increased ammonia levels who lives at the [facility] presenting to the emergency department with altered mental status. History was taken from emergency department doctor who discussed case with a nurse at the [facility] who also did not know patient? too much.? Reportedly in the past 1 to 2 days patient has been confused.? Patient was found walking around and [facility] says they are unable to take a patient at this time.Patient is unable to provide history except he stated that he has belly pain.? Also he re portedly asked whether his family knows that he is at hospital. Work-up in the emergency department was unremarkable except for chronic changes. Patient was admitted to our hospital from 06/03/2022 to 06/09/2022 for acute encephalopathy secondary to VRE UTI and hyperammonemia. Hospital Course: 1. Acute encephalopathy?57-year-old male who was recently admitted for a VRE U TI that has been successfully treated, presents back to the hospital because of confusion. He is back to baseline today and he is receiving his lactulose his ammonia went from 74 to 60 and he is alert and conversant today. All other work-up does not have an indication as to why he would do cephalopathic episode unless he was not getting his lactulose as frequently as he should have been at the [facility]. We will plan to discharge back to the [facility] today. 2. History of kidney transplant on antirejection medications, chronic anemia with neutropenia, congenital nystagmus, are all chronic medical conditions which complicates his care. His home medications were continued where appropriate Physical Exam Narrative General: Alert, Oriented x3, Cooperative, No apparent distress HEENT: Atraumatic, chronic nystagmus Oral: Moist Mucosa Neck: Supple, No JVD Lungs: Diminished, Normal air movement, No rhonchi, No wheeze, No rales Cardiovascular: Regular rate, Regular Rhythm, Normal S1, Normal S2, No murmurs Abdomen: Soft, Non Tender, Non-Distended, No Hepato-splenomegaly Extremities: No edema, Capillary Refill Less than 3 Seconds Skin: No rashes, No breakdown Musculoskeletal: No Tenderness to Palpation of Joints or Extremities Neurological: Cranial nerves II-XII grossly intact, Motor Exam 5/5 strength throughout, Sensory exam intact to light touch and pain Psych/Mental Status: Flat affect, Appropriate Weight / BMI Weight Weight: 149 lb 0.52 oz Body Mass Index (BMI) 20.2 ABG / Lab / Microbiology Data Result Diagrams: 06/15/22 05:28 06/15/22 05:28 Laboratory: Laboratory Results - last 24 hr 06/13/22 19:50: Vitamin B12 524 06/14/22 06:07: Diff Path Review Reviewed 06/15/22 05:28: WBC 3.5 L, RBC 2.87 L, Hgb 8.8 L, Hct 28.3 L, MCV 98.6 H, MCH 30.7, MCHC 31.1 L, RDW Std Deviation 51.9 H, RDW Coeff of Anil 14.4, Plt Count 141 L, MPV 11.7, Immature Gran % (Auto) 0.300, Neut % (Auto) 53.0, Lymph % (Auto) 17.1 L, Stearns % (Auto) 12.8 H, Eos % (Auto) 15.7 H, Baso % (Auto) 1.1 H, Absolute Neuts (auto) 1.9 L, Absolute Lymphs (auto) 0.60 L, Nucleated RBC % 0, Diff Path Review Reviewed, Platelet Estimate SLT DEC, Macrocytosis 1+ 06/15/22 05:28: Sodium 143, Potassium 4.2, Chloride 116 H, Carbon Dioxide 20.0 L , Anion Gap 7, BUN 19 H, Creatinine 1.11, Estim Creat Clear Calc 71.90, Est GFR (MDRD) Af Amer 88, Est GFR (MDRD) Non-Af 73, BUN/Creatinine Ratio 17.1, Glucose 83, Calcium 7.6 L, Total Bilirubin 1.00, AST 40 H, ALT 43, Alkaline Phosphatase 94, Total Protein 5.1 L, Albumin 2.5 L, Globulin 2.6, Albumin/Globulin Ratio 1.0 06/15/22 05:29: Ammonia 60.0 H Microbiology: Microbiology 06/13/22 20:45 Urine, Catheterized Urine Culture - Preliminary Culture exhibits no growth. Meaningful Use Info Meaningful Use Diagnoses (Choose all that apply): None applicable Discharge Plan Admission Admit Date/Time: 06/13/22 22:16 Attending Provider: Jose Armando Tran Primary Care Provider: Mike Bella Consulting Providers: Raúl Calvillo ; Sarah Reyes Discharge Orders/Prescriptions Prescriptions: Continued mycophenolate mofetil 500 MG tablet 500 mg PO 0900,2100 Label Comments: anti rejection multivitamin Tablet 1 tab PO QHS acetaminophen [Tylenol] 325 mg Tablet 650 mg PO Q6H PRN PRN (Reason: Pain 1-10 Or Fever>100.7) Qty: 0 0RF sodium bicarbonate 650 mg tablet 1,300 mg PO TID Qty: 6 0RF dronabinol 2.5 mg Capsule 2.5 mg PO BIDAC Qty: 10 0RF Xifaxan 550 mg Tablet 550 mg PO BID Qty: 0 0RF tacrolimus 0.5 mg Capsule 0.5 mg PO BID Qty: 0 0RF mirtazapine 30 mg tablet 30 mg PO QHS lactulose 20 gram/30 mL solution 30 ml PO Q4 Referrals / Follow Up: Mike Bella MD [Primary Care Provider] - Disposition Disposition (needs filled in before D/C Order can be placed): [facility] Charges/Coding Visit Charges Inpatient E&M: 75710 Disch Hosp >30min
== END 2022-06-15 13:34 | disposition skilled nursing facility (03) ==
LOC: ED 21:51 → PCU 22:31
PROVIDERS: Student in an Organized Health Care Education/Training Program; Admitting Provider Hospitalist; Emergency Provider Emergency Medicine; PCP Family Medicine; Visit Provider Family Medicine
DX: G93.40 Encephalopathy, unspecified (principal); E72.20 Disorder of urea cycle metabolism, unspecified; N18.31 Chronic kidney disease, stage 3a; I12.9 Hypertensive chronic kidney disease with stage 1 through stage 4 chronic kidney disease, or unspecified chronic kidney disease; Z94.0 Kidney transplant status; D63.8 Anemia in other chronic diseases classified elsewhere; Z86.718 Personal history of other venous thrombosis and embolism; Z86.711 Personal history of pulmonary embolism; Z79.899 Other long term (current) drug therapy; N31.9 Neuromuscular dysfunction of bladder, unspecified; R33.9 Retention of urine, unspecified
CPT/HCPCS: 36415; 71045; 80053; 81001; 82140; 82607; 83735; 85025; 87086; 87426; 92526; 92610; 93005; 96360; 96361; 96372; 97802; 99221; 99285; J7030; P9612; A4216; G0378

== ENCOUNTER 2022-07-15 21:32 | Inpatient (IN) | payer MEDICARE, MEDICAID, SELFPAY ==
[2022-07-15 21:32] VITALS: BP 153/88; PULSE 99; RESP 15; TEMP 36.7; O2SAT 98; BMI 21.9
--- NOTE | 2022-07-15 21:41 | CT_ITS ---
INDICATION: mental status change EXAMINATION: CT BRAIN - CT Head or Brain W/O Contrast Injection TECHNIQUE: Multiple axial images were obtained of the head without intravenous contrast. A radiation dose optimization technique was used for this scan. IV Contrast dosage and agent: None. COMPARISON: CT head 06/03/2022 FINDINGS: BRAIN: No acute bleed. No edema. Marr-white matter differentiation is maintained. Arterial calcifications. VENTRICLES AND SULCI: Not dilated. EXTRA-AXIAL: No hemorrhage, fluid collection, or mass. CALVARIUM / SKULL BASE: Unremarkable. FACE/SINUSES: Right maxillary sinus is opacified unchanged. The mastoid air cells are partially opacified bilaterally, unchanged. SOFT TISSUES: Unremarkable. CT/Brain/Head without Contrast IMPRESSION: No acute abnormality. CT angiogram and/or MRI may be helpful to evaluate for acute infarct as clinically indicated. Electronically Signed: Blanca Gregory MD at 22:35 EDT ,
--- NOTE | 2022-07-15 21:44 | EDS_ITS ---
HPI History of Present Illness Chief Complaint: Confusion Detail of Chief Complaint: Confusion Informant: patient and EMS Narrative Narrative: Patient presents from extended-care facility via EMS with complaint of increased weakness and confusion this evening. Patient normally walks but was having hard time walking. Patient apparently complained of a headache and abdominal pain. Patient with history encephalopathy and history of prior renal transplant. Patient with prior history of UTIs. Patient is a poor informant in the department and really does not answer questions well. He does admit to abdominal pain and a headache. [facility] Medical History Anemia in chronic illness Bladder dysfunction Bronchitis Chronic kidney disease, stage 3b CKD (chronic kidney disease), stage III Congenital nystagmus DVT (deep venous thrombosis) History of DVT (deep vein thrombosis) History of encephalopathy History of pulmonary embolism HTN (hypertension) Immunosuppressed status Mild intellectual disability Neurogenic bladder disorder Neutropenia Pancytopenia Pulmonary embolism Severe protein-calorie malnutrition Urinary retention Vocal cord dysfunction Home Medications mycophenolate mofetil 500 mg tablet 500 mg PO 0900,2100 Anti-Rejection 07/14/16 [History Last Taken 06/02/22] multivitamin 1 tab PO QHS supplement 02/13/22 [History Last Taken 06/02/22] acetaminophen 325 mg tablet (Tylenol) 650 mg PO Q6H PRN PRN Pain 1-10 Or Fever>100.7 #0 tabs 04/21/22 [Rx Last Taken 06/02/22] sodium bicarbonate 650 mg tablet 1,300 mg PO TID #6 tabs 04/21/22 [Rx Last Taken 06/03/22] dronabinol 2.5 mg capsule 2.5 mg PO BIDAC #10 caps 05/04/22 [Rx Last Taken 0 06/02/22] rifaximin 550 mg tablet (Xifaxan) 550 mg PO BID #0 tabs 05/04/22 [Rx Last Taken Unknown] tacrolimus 0.5 mg capsule, immediate-release 0.5 mg PO BID #0 caps 05/04/22 [Rx Last Taken 06/02/22] mirtazapine 30 mg tablet 30 mg PO QHS DEPRESSION 06/03/22 [History Last Taken 06/02/22] lactulose 20 gram/30 mL oral solution 30 ml PO Q4 06/13/22 [History Last Taken Unknown] Allergy/AdvReac Type Severity Reaction Status Date / Time red dye Allergy PT UNSURE Verified 07/15/22 21:37 OF REACTION Family History Mother Hypertension Father Diabetes Surgical History Kidney transplant recipient S/P arteriovenous (AV) fistula creation Social History household members: none housing: [facility] Smoking Status: Never smoker second hand exposure: No alcohol intake: never substance use type: does not use caffeine: No ROS ROS ED Review of Systems ROS Unobtainable: other Constitutional Constitutional ED: Reports lethargy; Denies chills, fever(s), sweats or weight loss Eyes Eyes: Denies blurry vision, change in vision or diplopia ENT ENT ED: Denies rhinorrhea or sore throat Cardiovascular Cardiovascular: Denies chest pain, orthopnea or racing heartbeat Respiratory/Chest Respiratory/Chest: Denies cough, dyspnea, dyspnea on exertion, orthopnea or sputum Gastrointestinal Gastrointestinal: Reports abdominal pain; Denies diarrhea, nausea or vomiting Genitourinary Genitourinary ED: Denies dysuria, hematuria or urinary frequency Musculoskeletal Musculoskeletal: Denies arthralgias, back pain, myalgias or neck pain Integumentary Denies abscess, Abrasions or rash Neurologic Neurologic: Reports headache(s); Denies weakness Psychiatric Psychiatric: Denies anxiety, depression or suicidal thoughts Endocrine Endocrinology: Denies polydipsia, polyphagia or polyuria Hematologic/Lymphatic Hematologic/Lymphatic: Denies easy bleeding, easy bruising or lymphadenopathy Allergic/Immunologic Allergic/Immunologic ED: Denies mouth swelling, tongue swelling or urticaria EXAM Physical Exam Const Vital Signs: 07/15/22 21:32 07/15/22 21:45 07/15/22 23:32 Temperature 98.1 F 98.1 F 97.7 F L Temperature Source Temporal Temporal Temporal Pulse Rate 99 99 93 Respiratory Rate 15 18 18 Blood Pressure 153/88 H 153/88 H 158/95 H Blood Pressure Mean 109 109 116 Pulse Ox 98 98 94 Oxygen Delivery Method Room Air Room Air Room Air Positive well nourished and well developed General Appearance ED: well developed and NAD HEENT Reports TM's clear and moist mucous membranes normocephalic and atraumatic; Negative for trauma or tenderness Tympanic Membrane ED: Yes TM's clear Eyes PERRL and EOMs intact bilaterally General Eye ED: Negative for pale conjunctiva or scleral icterus Neck no lymphadenopathy, supple and no JVD General: Negative for tenderness Chest Wall inspection of chest normal and palpation of chest normal Chest: Negative for tenderness Resp normal respiratory effort and clear to auscultation bilaterally Effort and Inspection: Negative for respiratory distress or pain with movement Auscultation: Negative for rhonchi, wheezes or diminished lung sounds Cardio regular rate, regular rhythm, S1 normal heart sound, S2 normal heart sound and no murmurs Peripheral Pulses: pulses 2+ throughout GI normal to inspection, nondistended, normoactive bowel sounds, soft to palpation, non-distended and no masses GI Narrative: Mild diffuse tenderness. There is no rebound, rigidity, or peritoneal signs. No mass palpated. Back/Spine no CVA tenderness and no thoracic nor lumbar tenderness Extremity normal to inspection General Extremety ED: Negative for edema General Extremity: Negative for edema Neuro oriented x3, CN's II-XII intact bilaterally, no sensory deficits noted and gait normal Neuro Narrative: No focal deficits. No facial droop. Sensorium / Orientation: awake, alert, oriented to person, oriented to place and oriented to time Motor Exam: strength 5/5 throughout and strength abnormal Psych mental status grossly normal Skin no rashes or lesions noted and no wounds MDM MDM MDM Narrative Medical decision making narrative: Presents to the ER with increased confusion and complaint of abdominal pain and headache. In the differential would be UTI as he is prone to frequent urinary tract infection and does self cath. Given his increased confusion and headache a CT scan of the brain without contrast obtained was unremarkable. CBC with differential showed a white count of 4.3, hemoglobin 11.2, hematocrit 35, platelets 127. Chemistries unremarkable. LFTs were normal. Lactate was normal at 1.7. Ammonia level was 35. Urinalysis cath specimen showed 100 leukocyte Estrace as well as 25-50 RBCs and 10-25 WBCs with rare bacteria. Urine culture was sent. Blood cultures sent and pending. CT scan of the abdomen pelvis obtained read by radiology as gallstones with gallbladder wall thickening and recommended obtaining ultrasound to evaluate further for cholecystitis. Clinically patient has minimal discomfort over the right upper quadrant. Patient also was noted to have marked bladder wall thickening which would be consistent with cystitis. In reviewing patient's medical record it is noted that he has had history of VRE. Patient was given 1 dose of linezolid IV. Bladder ultrasound ordered and pending. Case discussed with hospitalist will evaluate patient for admission. Lab Data Labs: Laboratory Results - last 24 hr 07/15/22 07/15/22 07/15/22 21:40 21:40 21:40 WBC 4.3 L RBC 3.61 L Hgb 11.2 L Hct 34.8 L MCV 96.4 H MCH 31.0 MCHC 32.2 RDW Std Deviation 50.3 H RDW Coeff of Anil 14.3 Plt Count 127 L MPV 11.8 Immature Gran % (Auto) 0.200 Neut % (Auto) 46.6 L Lymph % (Auto) 27.3 Martin % (Auto) 18.2 H Eos % (Auto) 6.5 H Baso % (Auto) 1.2 H Absolute Neuts (auto) 2.0 Absolute Lymphs (auto) 1.18 Nucleated RBC % 0 Sodium 141 Potassium 3.6 Chloride 112 H Carbon Dioxide 22.0 Anion Gap 7 BUN 19 H Creatinine 1.27 Estim Creat Clear Calc 72.13 Est GFR (MDRD) Af Amer 76 Est GFR (MDRD) Non-Af 63 BUN/Creatinine Ratio 15.0 Glucose 104 Lactic Acid 1.7 Calcium 8.4 L Total Bilirubin 1.30 H AST 49 H ALT 42 Alkaline Phosphatase 82 Ammonia Troponin I High Sens 22 Total Protein 6.7 Albumin 3.3 Globulin 3.4 Albumin/Globulin Ratio 1.0 Urine Color Urine Clarity Urine pH Ur Specific [place] Urine Protein Urine Glucose (UA) Urine Ketones Urine Occult Blood Urine Nitrite Urine Bilirubin Urine Urobilinogen Ur Leukocyte Esterase Urine RBC Urine WBC Ur Squamous Epith Cells Urine Bacteria Urine Mucus 07/15/22 07/15/22 22:00 22:04 WBC RBC Hgb Hct MCV MCH MCHC RDW Std Deviation RDW Coeff of Anil Plt Count MPV Immature Gran % (Auto) Neut % (Auto) Lymph % (Auto) Martin % (Auto) Eos % (Auto) Baso % (Auto) Absolute Neuts (auto) Absolute Lymphs (auto) Nucleated RBC % Sodium Potassium Chloride Carbon Dioxide Anion Gap BUN Creatinine Estim Creat Clear Calc Est GFR (MDRD) Af Amer Est GFR (MDRD) Non-Af BUN/Creatinine Ratio Glucose Lactic Acid Calcium Total Bilirubin AST ALT Alkaline Phosphatase Ammonia 35.0 H Troponin I High Sens Total Protein Albumin Globulin Albumin/Globulin Ratio Urine Color Yellow Urine Clarity Sl. Cloudy Urine pH 7.0 Ur Specific [place] 1.010 Urine Protein 500 H Urine Glucose (UA) Normal Urine Ketones Negative Urine Occult Blood 250 H Urine Nitrite Negative Urine Bilirubin Negative Urine Urobilinogen Normal Ur Leukocyte Esterase 100 H Urine RBC 25-50 SEEN Urine WBC 10-25 SEEN Ur Squamous Epith Cells 0-5 SEEN Urine Bacteria RARE Urine Mucus 0 SEEN Radiography Diagnostic Testing: Clinical Impression(s) from Imaging Studies Brain CT 07/15/22 21:41 IMPRESSION: No acute abnormality. CT angiogram and/or MRI may be helpful to evaluate for acute infarct as clinically indicated. Electronically Signed: Blanca Gregory MD at 22:35 EDT , Abdomen/Pelvis CT 07/15/22 22:12 IMPRESSION: 1. Atrophic [place] kidneys with marked dilatation of the right renal collecting system with prominent wall suggests inflammatory process pyelitis and/or pyelonephritis superimposed on chronic obstructive changes. Right renal transplant without hydronephrosis. 2. Marked bladder wall thickening consistent with cystitis. Other process or malignancy not excluded. 3. Innumerable soft tissue nodules mesenteric adenopathy and/or varices, with suboptimal assessment. This is new compared to the prior CT from 2018. Larger mass versus unopacified small bowel in the right abdomen. 4. Cholelithiasis with thickened gallbladder wall, ultrasound correlation may be helpful to evaluate for acute cholecystitis if clinically indicated. 5. Findings in the lower lungs suggesting component of pulmonary edema. Electronically Signed: Blanca Gregory MD at 22:48 EDT , Discharge Plan Dx/Rx/DC Orders Clinical Impression: Acute UTI, Acute alteration in mental status, Headache, Abdominal pain Disposition Disposition: Acute Care Hospital [facility] [place] [facility]
[2022-07-15 21:45] VITALS: BP 153/88; PULSE 99; RESP 18; TEMP 36.7; O2SAT 98
[2022-07-15 21:56] LABS: Absolute Lymphocyte Count 1.18 X10^3/uL (0.83-4.51); Basophil# 0.05 X10^3/uL; Basophil% 1.2 % (0-1); Eosinophil# 0.28 X10^3/uL; Eosinophils% 6.5 % (0-5); Hematocrit 34.8 % (40-54); Hemoglobin 11.2 g/dL (13.0-16.5); Lymphocyte # 1.18 X10^3/ul (0.83-4.51); Lymphocyte % 27.3 % (19-41); Mean Corp Hgb Conc 32.2 g/dL (32-36); Mean Corpuscular Volume 96.4 fL (80-94); Mean Platelet Vol. 11.8 fl (6.2-12.0); Monocyte# 0.79 X10^3/uL; Monocyte% 18.2 % (0-10); NRBC Flagged by Analyzer 0 % (0-5); Neutrophil # 2.02 X10^3/uL (2.7-7.7); Neutrophil % 46.6 % (47-70); Platelet Count 127 K/mm3 (150-450); RBC Distribution Width CV 14.3 % (11.6-14.6); RBC Distribution Width SD 50.3 fl (35.1-43.9); Red Blood Count 3.61 M/mm3 (4.6-6.2); White Blood Count 4.3 K/mm3 (4.4-11.0)
[2022-07-15] MEDS: 0.9% Normal Saline 1,000 ML 150 ML IV (22:03)
[2022-07-15 22:10] LABS: Lactic Acid 1.7 mmol/L (0.4-1.9)
--- NOTE | 2022-07-15 22:10 | ED.RN ---
verified with the Avenue that pt received his transplant meds this evening
[2022-07-15 22:12] LABS: Mucous, Urine 0 SEEN /hpf (<or=2+)
--- NOTE | 2022-07-15 22:12 | CT_ITS ---
INDICATION: abdominal pain EXAMINATION: CT ABDOMEN AND PELVIS WITHOUT CONTRAST - CT Abdomen And Pelvis W/O Contrast Injection TECHNIQUE: Helically acquired images were obtained of the abdomen and pelvis without oral or IV contrast. A radiation dose optimization technique was used for this scan. IV Contrast dosage and agent: None. Oral contrast: None. COMPARISON: CT abdomen and pelvis 01/11/2018. FINDINGS: LOWER CHEST: Hazy opacities in the lower lungs with septal thickening.. LIVER: Grossly unremarkable. GALLBLADDER AND BILIARY TREE: Gallbladder contracted. Gallstones in the gallbladder. Prominent gallbladder wall and mild adjacent stranding. PANCREAS: Grossly unremarkable. SPLEEN: Grossly unremarkable. ADRENAL GLANDS: Grossly unremarkable. KIDNEYS AND URETERS: [place] kidneys are atrophic. Marked dilatation of the right renal collecting system prominent extrarenal pelvis with mild thickened wall and adjacent stranding about the renal pelvis. Dilated proximal right ureter which is not well visualized. Mild fullness of the left renal pelvis without hydronephrosis. No obstructing calculi identified in the ureters. A few small low attenuation structures in the kidneys are likely cysts but not adequately assessed. Renal transplant in right iliac fossa without hydronephrosis. No perinephric collection. PERITONEUM: No free air. No free fluid. BOWEL: No bowel obstruction. Numerous soft tissue nodules throughout the mesentery most likely enlarged lymph nodes. Several of these are more tortuous and may be varices, suboptimal without IV contrast. Larger confluent lobulated component in the right mid abdomen approximately 7.5 x 4.5 cm possible larger mass versus unopacified clustered small bowel. APPENDIX: Not identified. VESSELS: Abdominal aorta is normal caliber. REPRODUCTIVE ORGANS: Grossly unremarkable URINARY BLADDER: Moderately distended with asymmetric wall thickening especially at the dome. Adjacent stranding. ABDOMINAL WALL: Unremarkable. BONES: No acute abnormalities. CT/Abdomen/Pelvis without Cont IMPRESSION: 1. Atrophic [place] kidneys with marked dilatation of the right renal collecting system with prominent wall suggests inflammatory process pyelitis and/or pyelonephritis superimposed on chronic obstructive changes. Right renal transplant without hydronephrosis. 2. Marked bladder wall thickening consistent with cystitis. Other process or malignancy not excluded. 3. Innumerable soft tissue nodules mesenteric adenopathy and/or varices, with suboptimal assessment. This is new compared to the prior CT from 2018. Larger mass versus unopacified small bowel in the right abdomen. 4. Cholelithiasis with thickened gallbladder wall, ultrasound correlation may be helpful to evaluate for acute cholecystitis if clinically indicated. 5. Findings in the lower lungs suggesting component of pulmonary edema. Electronically Signed: Blanca Gregory MD at 22:48 EDT ,
[2022-07-15 22:18] LABS: AST(SGOT) 49 U/L (15-37); Alanine Aminotransfer ALT/SGPT 42 U/L (16-61); Albumin, Serum 3.3 g/dL (3.2-5.0); Alkaline Phosphatase 82 U/L (45-117); Anion Gap 7 (5-15); BUN 19 mg/dL (7-18); Calcium,Total 8.4 mg/dL (8.5-10.1); Chloride 112 mmol/L (98-107); Creatinine, Serum 1.27 mg/dL (0.70-1.30); EST Glomerular Filtration Rate 63 mL/min (>60); Est Glom Filt Rate - Afr Amer 76 mL/min (>60); Estimated Creatinine Clearance 72.13 ml/min; Globulin 3.4 g/dL (2.2-4.2); Glucose 104 mg/dL (74-106); Potassium 3.6 mmol/L (3.5-5.1); Protein, Total 6.7 g/dL (6.4-8.2); Sodium Level 141 mmol/L (136-145); Troponin-I HS 22 pg/mL (3.0-78.0)
[2022-07-15 22:23] LABS: Color, Urine Yellow (Yellow); Glucose, Dipstick Normal (Normal); Ketone-Dipstick Negative (Negative); Leukocyte Esterase-Dipstick 100 /ul (Negative); Nitrite-Dipstick Negative (Negative); Occult Blood-Urine 250 /ul (Negative); Protein-Dipstick 500 mg/dl (Negative); Urine Bilirubin Dipstick Negative (Negative); Urine Clarity Sl. Cloudy (Clear); Urine Urobilinogen Normal (Normal)
[2022-07-15 22:33] LABS: Bacteria RARE /hpf (None Seen); Red Blood Cells-Urine 25-50 SEEN /hpf (0-5); Squamous Epithelial Cells - UA 0-5 SEEN /hpf (0-5); White Blood Cells 10-25 SEEN /hpf (0-5)
--- NOTE | 2022-07-15 22:51 | US_ITS ---
INDICATION: abdominal pain EXAMINATION: Ultrasound US Abdomen RUQ (limited) TECHNIQUE: Marr-scale and color Doppler imaging was performed of the abdomen. COMPARISON: None. FINDINGS: LIVER: There is normal echotexture measuring 15.3 cm. No focal hepatic lesion. No intrahepatic biliary ductal dilatation. There is no free fluid. GALLBLADDER AND BILIARY TREE: There is cholelithiasis and gallbladder sludge. There is gallbladder wall thickening measuring 5 mm. The proximal common bile duct measures 3 mm, which is within normal limits for the patient''s age. SONOGRAPHIC MERCER''S SIGN: Negative. PANCREAS: Limited visualization of the pancreas. RIGHT KIDNEY: 6.1 x 3.2 x 3.4 cm. The cortex is 7 mm There is limited visualization of the right kidney. There is hydronephrosis. There is a right transplanted kidney measuring 9.0 x 4.9 x 4.7 cm with cortex measuring 17 mm and normal vascularity. VESSELS: Submitted longitudinal images of the intra-abdominal aorta demonstrate no gross abnormalities and are unremarkable. The IVC is patent. US/Gallbladder IMPRESSION: Small atrophic right kidney with hydronephrosis. Transplanted pelvic kidney with good vascularity. Gallbladder wall thickening with cholelithiasis and sludge. Electronically Signed: Renato Lawson DO at 23:53 EDT Reading Location ID and State: [facility] / [place] Tel [phone], Service support ,
[2022-07-15 23:32] VITALS: BP 158/95; PULSE 93; RESP 18; TEMP 36.5; O2SAT 94
--- NOTE | 2022-07-15 23:36 | PCM.HP.STD ---
HPI - General General Date of Admission: 07/15/22 Date of Service: 07/15/22 Chief Complaint: Altered mental status HPI Narrative ROOSEVELT GARCIA, is a 57 M with a significant history of CKD stage IIIa; renal transplant; DVT; neurogenic bladder with frequent UTI; recurrent encephalopathy and increased ammonia levels who lives at the [facility] presenting to the emergency department with altered mental status. History was taken from emergency department doctor and patient's sister who was at the bedside as patient is hard of hearing, less talkative and hardly contribute to history. Patient nods to supplement history. Patient symptoms started on the same day of presentation. Associated with his altered mental status is headache and abdominal pain. Also reportedly patient is having difficulty walking. [facility] Medical History Anemia in chronic illness Bladder dysfunction Bronchitis Chronic kidney disease, stage 3b CKD (chronic kidney disease), stage III Congenital nystagmus DVT (deep venous thrombosis) History of DVT (deep vein thrombosis) History of encephalopathy History of pulmonary embolism HTN (hypertension) Immunosuppressed status Mild intellectual disability Neurogenic bladder disorder Neutropenia Pancytopenia Pulmonary embolism Severe protein-calorie malnutrition Urinary retention Vocal cord dysfunction Home Medications mycophenolate mofetil 500 mg tablet 500 mg PO 0900,2100 Anti-Rejection 07/14/16 [History Last Taken 06/02/22] multivitamin 1 tab PO DAILY supplement 02/13/22 [History Last Taken 06/02/22] acetaminophen 325 mg tablet (Tylenol) 650 mg PO Q6H PRN PRN Pain 1-10 Or Fever>100.7 #0 tabs 04/21/22 [Rx Last Taken 06/02/22] mirtazapine 30 mg tablet 30 mg PO QHS DEPRESSION 06/03/22 [History Last Taken 06/02/22] lactulose 20 gram/30 mL oral solution 30 ml PO Q4 06/13/22 [History Last Taken Unknown] dronabinol 2.5 mg capsule 2.5 mg PO BIDAC Check with primary doctor 07/16/22 [History Last Taken Unknown] rifaximin 550 mg tablet (Xifaxan) 550 mg PO BID Check with primary doctor 07/16/22 [History Last Taken Unknown] sodium bicarbonate 650 mg tablet 1,300 mg PO TID Check with primary doctor 07/16/22 [History Last Taken Unknown] tacrolimus 0.5 mg capsule, immediate-release 0.5 mg PO BID Check with primary doctor 07/16/22 [History Last Taken Unknown] tacrolimus 1 mg capsule, immediate-release (Prograf) 1.5 mg PO Q12H Check with primary doctor 07/16/22 [History Last Taken Unknown] Allergy/AdvReac Type Severity Reaction Status Date / Time red dye Allergy PT UNSURE Verified 07/15/22 21:37 OF REACTION Family History Mother Hypertension Father Diabetes Surgical History Kidney transplant recipient Renal transplant recipient S/P arteriovenous (AV) fistula creation Social History household members: none housing: snf Smoking Status: Never smoker second hand exposure: No alcohol intake: never substance use type: does not use caffeine: No ROS Review of Systems ROS Unobtainable: other Details: Pertinent positives and pertinent negatives that could be provided by patient's family is as noted in HPI. All other systems were reviewed patient's family did not know or they were negative. Vital Signs Vital Signs Vital Signs: 07/15/22 21:32 07/15/22 21:45 07/15/22 23:32 Temperature 98.1 F 98.1 F 97.7 F L Temperature Source Temporal Temporal Temporal Pulse Rate 99 99 93 Respiratory Rate 15 18 18 Blood Pressure 153/88 H 153/88 H 158/95 H Blood Pressure Mean 109 109 116 Pulse Ox 98 98 94 Oxygen Delivery Method Room Air Room Air Room Air Weight Weight: 77.6 kg Body Mass Index (BMI) 21.9 Physical Exam Narrative Physical exam: General: Well-nourished, well-developed. Head: Normocephalic, atraumatic, no tenderness Eyes: Vision is grossly intact. EOMI ENT, no trauma, moist mucous membranes, no rhinorrhea Neck: Nontender, No thyromegaly. CVS:? Regular rate and rhythm.? S1-S2 present.? No murmur, gallop or rub. Respiratory : clear to auscultation bilaterally, chest wall nontender, no wheezing Abdomen: Soft, tender, nondistended, normal bowel sounds, no masses : Deferred Back: Nontender, no CVA tenderness. Extremities: Nontender full range of motion, no trauma Skin: Normal color, no trauma, abrasions Neuro: Alert, Nod to answer some questions. Follow commands. Psychiatry: Normal mood.? Normal affect.? Not depressed.? Not anxious Results Lab / Micro Data Attestation: I reviewed the patient's lab results. Result Diagrams: 07/15/22 21:40 07/15/22 21:40 Labs: Laboratory Results - last 24 hr 07/15/22 21:40: WBC 4.3 L, RBC 3.61 L, Hgb 11.2 L, Hct 34.8 L, MCV 96.4 H, MCH 31.0, MCHC 32.2, RDW Std Deviation 50.3 H, RDW Coeff of Anil 14.3, Plt Count 127 L, MPV 11.8, Immature Gran % (Auto) 0.200, Neut % (Auto) 46.6 L, Lymph % (Auto) 27.3, [place] % (Auto) 18.2 H, Eos % (Auto) 6.5 H, Baso % (Auto) 1.2 H, Absolute Neuts (auto) 2.0, Absolute Lymphs (auto) 1.18, Nucleated RBC % 0 07/15/22 21:40: Sodium 141, Potassium 3.6, Chloride 112 H, Carbon Dioxide 22.0, Anion Gap 7, BUN 19 H, Creatinine 1.27, Estim Creat Clear Calc 72.13, Est GFR (MDRD) Af Amer 76, Est GFR (MDRD) Non-Af 63, BUN/Creatinine Ratio 15.0, Glucose 104, Calcium 8.4 L, Total Bilirubin 1.30 H, AST 49 H, ALT 42, Alkaline Phosphatase 82, Troponin I High Sens 22, Total Protein 6.7, Albumin 3.3, Globulin 3.4, Albumin/Globulin Ratio 1.0 07/15/22 21:40: Lactic Acid 1.7 07/15/22 22:00: Ammonia 35.0 H 07/15/22 22:04: Urine Color Yellow, Urine Clarity Sl. Cloudy, Urine pH 7.0, Ur Specific [place] 1.010, Urine Protein 500 H, Urine Glucose (UA) Normal, Urine Ketones Negative, Urine Occult Blood 250 H, Urine Nitrite Negative, Urine Bilirubin Negative, Urine Urobilinogen Normal, Ur Leukocyte Esterase 100 H, Urine RBC 25-50 SEEN, Urine WBC 10-25 SEEN, Ur Squamous Epith Cells 0-5 SEEN, Urine Bacteria RARE, Urine Mucus 0 SEEN Radiology Impression Brain CT 07/15/22 21:41 IMPRESSION: No acute abnormality. CT angiogram and/or MRI may be helpful to evaluate for acute infarct as clinically indicated. Electronically Signed: Blanca Gregory MD at 22:35 EDT , Abdomen/Pelvis CT 07/15/22 22:12 IMPRESSION: 1. Atrophic [place] kidneys with marked dilatation of the right renal collecting system with prominent wall suggests inflammatory process pyelitis and/or pyelonephritis superimposed on chronic obstructive changes. Right renal transplant without hydronephrosis. 2. Marked bladder wall thickening consistent with cystitis. Other process or malignancy not excluded. 3. Innumerable soft tissue nodules mesenteric adenopathy and/or varices, with suboptimal assessment. This is new compared to the prior CT from 2018. Larger mass versus unopacified small bowel in the right abdomen. 4. Cholelithiasis with thickened gallbladder wall, ultrasound correlation may be helpful to evaluate for acute cholecystitis if clinically indicated. 5. Findings in the lower lungs suggesting component of pulmonary edema. Electronically Signed: Blanca Gregory MD at 22:48 EDT , Assessment & Plan Assessment/Plan (1) Infectious encephalopathy: (2) Acute UTI: PLAN: Plan Acute infection encephalopathy secondary to acute pyelonephritis Abdomen pelvis CT showed mild dilatation of the right renal collecting system.marked bladder wall thickness consistent with cystitis. I agree with radiologist interpretation. Review of old records show the patient had VRE which was fraire resistant to many antibiotics except gentamicin and linezolid. Review of records show that patient was previously placed on daptomycin by ID as patient is on home mirtazapine which together with linezolid may cause serotonin syndrome. Received 1 dose of linezolid at the emergency department. Daptomycin ordered. Trend CBC and BMP. Cholelithiasis/Sludge/mesenteric adenopathy/larger mass versus unopacified small bowel in the right abdomen Surgical consult. Neurogenic bladder with urinary retention. Needs to assist patient to straight cath. History of kidney transplant and CKD stage IIIa Creatinine presentation is within baseline. Tacrolimus and mycophenolate continued.? Trend CMP. Sodium bicarbonate continued. Generalized weakness PT and OT to work with patient. DVT prophylaxis: Subcutaneous Lovenox ordered. Charges/Coding Visit Charges Inpatient E&M: 71348 Init Hosp L3
[2022-07-15 23:38] VITALS: BP 158/95; PULSE 93; RESP 18; TEMP 36.5; O2SAT 94
[2022-07-15] MEDS: Linezolid 600 MG 600 MG/300 ML BAG 200 MG IV (23:54)
[2022-07-16 00:31] VITALS: BMI 25.3
[2022-07-16 00:36] VITALS: BP 134/84; PULSE 91; RESP 18; TEMP 36.6; O2SAT 95
[2022-07-16] MEDS: 0.9% Normal Saline 1,000 ML 75 ML IV (01:02)
[2022-07-16 06:10] VITALS: BP 129/94; PULSE 110; RESP 20; TEMP 38.2; O2SAT 92
[2022-07-16 06:54] LABS: Absolute Lymphocyte Count 0.46 X10^3/uL (0.83-4.51); Absolute Neutrophil Count 2.7 X10^3/uL (2.0-7.7); Basophil# 0.02 X10^3/uL; Basophil% 0.5 % (0-1); Eosinophil# 0.09 X10^3/uL; Eosinophils% 2.4 % (0-5); Hematocrit 30.5 % (40-54); Hemoglobin 9.9 g/dL (13.0-16.5); Lymphocyte # 0.46 X10^3/ul (0.83-4.51); Lymphocyte % 12.1 % (19-41); Mean Corp Hgb Conc 32.5 g/dL (32-36); Mean Corpuscular Hgb 31.1 pg (27.0-32.0); Mean Corpuscular Volume 95.9 fL (80-94); Monocyte# 0.56 X10^3/uL; Monocyte% 14.8 % (0-10); NRBC Flagged by Analyzer 0 % (0-5); Neutrophil # 2.65 X10^3/uL (2.7-7.7); Neutrophil % 69.9 % (47-70); POSITIVE DIFFERENTIAL YES; Platelet Count 105 K/mm3 (150-450); RBC Distribution Width CV 14.2 % (11.6-14.6); RBC Distribution Width SD 49.9 fl (35.1-43.9); Red Blood Count 3.18 M/mm3 (4.6-6.2); White Blood Count 3.8 K/mm3 (4.4-11.0)
--- NOTE | 2022-07-16 06:54 | EX.PCM.CON.S ---
Assessment & Plan Assessment/Plan (1) Abnormal CT of the abdomen: PLAN: This is a 57-year-old male, with a complex past medical and past surgical history, who presents with altered mental status and evidence of pyelonephritis on CT imaging. Surgery is consulted for evaluation of abnormal CT imaging and identifies a 7.5 x 4.5 cm area in the right abdomen that is concerning for possible mass versus unopacified bowel. I have previously consulted on Mr. Garcia for a concern of failure to thrive and recommended against PEG tube placement on the account of concurrent finding of abdominal ascites. Patient does appear to have evidence of hepatic dysfunction and subsequent portal hypertension with abdominal ascites noted on prior MR imaging and now evidence of possible varices throughout the mesentery on the most recent CT imaging. It is with this in mind that I have discussed with patient's sister (medical power of instructor apparel manufacture), his exceptional surgical risk, but advised that we could perform a CT study with enteral contrast to try to at least better understand patient's CT abnormality. Unfortunately, Mr. Garcia was not a reliable historian during our visit so we will be more dependent on a radiologic work-up as well. Patient's sister expressed an interest in proceeding, but asked that I contact her brother as well. Unfortunately, Mr. Alejo Garcia was not able to be reached via phone. Plan, however, was discussed with primary hospitalist, Dr. Solis, and the order has been placed for CT imaging. Regarding a question of possible cholecystitis, I believe patient's gallbladder wall thickening is secondary to his primary hepatic dysfunction and hypoalbuminemia. This seems at least in part confirmed given MR read from April 2022 that discussed just this possibility. ? Obtain CT of the abdomen pelvis with p.o. contrast only ? We will follow-up the above study and discussed with patient/family HPI Consult Data Date of Consult: 07/16/22 HPI Narrative Reason for Consultation: Questionable abdominal mass HPI Narrative: ROOSEVELT GARCIA, is a 57 M who presented to [facility] from his nursing facility for a diagnosis of altered mental status. He has a history of recurrent metabolic encephalopathy and hyperammonemia occasioning multiple admissions in the past several months. As part of his work-up CT imaging of the abdomen pelvis was obtained without IV or oral contrast. Radiology identified findings concerning for probable pyelonephritis, but additionally noted a area measuring 7.5 x 4.5 cm in the right abdomen that was concerning for possible mass versus unopacified bowel. Surgery was consulted to evaluate this latter issue further. COUNTS INCLUDE 234 BEDS AT THE [facility] Medical History Anemia in chronic illness Bladder dysfunction Bronchitis Chronic kidney disease, stage 3b CKD (chronic kidney disease), stage III Congenital nystagmus DVT (deep venous thrombosis) History of DVT (deep vein thrombosis) History of encephalopathy History of pulmonary embolism HTN (hypertension) Immunosuppressed status Mild intellectual disability Neurogenic bladder disorder Neutropenia Pancytopenia Pulmonary embolism Severe protein-calorie malnutrition Urinary retention Vocal cord dysfunction Home Medications mycophenolate mofetil 500 mg tablet 500 mg PO 0900,2100 Anti-Rejection 07/14/16 [History Last Taken 06/02/22] multivitamin 1 tab PO DAILY supplement 02/13/22 [History Last Taken 06/02/22] acetaminophen 325 mg tablet (Tylenol) 650 mg PO Q6H PRN PRN Pain 1-10 Or Fever>100.7 #0 tabs 04/21/22 [Rx Last Taken 06/02/22] mirtazapine 30 mg tablet 30 mg PO QHS DEPRESSION 06/03/22 [History Last Taken 06/02/22] lactulose 20 gram/30 mL oral solution 30 ml PO Q4 06/13/22 [History Last Taken Unknown] dronabinol 2.5 mg capsule 2.5 mg PO BIDAC Check with primary doctor 07/16/22 [History Last Taken Unknown] rifaximin 550 mg tablet (Xifaxan) 550 mg PO BID Check with primary doctor 07/16/22 [History Last Taken Unknown] sodium bicarbonate 650 mg tablet 1,300 mg PO TID Check with primary doctor 07/16/22 [History Last Taken Unknown] tacrolimus 0.5 mg capsule, immediate-release 0.5 mg PO BID Check with primary doctor 07/16/22 [History Last Taken Unknown] tacrolimus 1 mg capsule, immediate-release (Prograf) 1.5 mg PO Q12H Check with primary doctor 07/16/22 [History Last Taken Unknown] Allergy/AdvReac Type Severity Reaction Status Date / Time red dye Allergy PT UNSURE Verified 07/15/22 21:37 OF REACTION Family History Mother Hypertension Father Diabetes Surgical History Kidney transplant recipient Renal transplant recipient S/P arteriovenous (AV) fistula creation Social History household members: none housing: pen[facility] Smoking Status: Never smoker second hand exposure: No alcohol intake: never substance use type: does not use caffeine: No Physical Exam Const alert Constitutional Narrative: Patient appears calm, but despite shouting with his hearing aids him, he is unable to provide appropriate answers to questions GI GI Narrative: Soft, nondistended, tenderness reported diffusely without localization, no guarding Lab / Micro Data Result Diagrams: 07/16/22 06:44 07/16/22 06:44 Labs: Laboratory Results - last 24 hr 07/15/22 21:40: WBC 4.3 L, RBC 3.61 L, Hgb 11.2 L, Hct 34.8 L, MCV 96.4 H, MCH 31.0, MCHC 32.2, RDW Std Deviation 50.3 H, RDW Coeff of Anil 14.3, Plt Count 127 L, MPV 11.8, Immature Gran % (Auto) 0.200, Neut % (Auto) 46.6 L, Lymph % (Auto) 27.3, [place] % (Auto) 18.2 H, Eos % (Auto) 6.5 H, Baso % (Auto) 1.2 H, Absolute Neuts (auto) 2.0, Absolute Lymphs (auto) 1.18, Nucleated RBC % 0 07/15/22 21:40: Sodium 141, Potassium 3.6, Chloride 112 H, Carbon Dioxide 22.0, Anion Gap 7, BUN 19 H, Creatinine 1.27, Estim Creat Clear Calc 72.13, Est GFR (MDRD) Af Amer 76, Est GFR (MDRD) Non-Af 63, BUN/Creatinine Ratio 15.0, Glucose 104, Calcium 8.4 L, Total Bilirubin 1.30 H, AST 49 H, ALT 42, Alkaline Phosphatase 82, Troponin I High Sens 22, Total Protein 6.7, Albumin 3.3, Globulin 3.4, Albumin/Globulin Ratio 1.0 07/15/22 21:40: Lactic Acid 1.7 07/15/22 22:00: Ammonia 35.0 H 07/15/22 22:04: Urine Color Yellow, Urine Clarity Sl. Cloudy, Urine pH 7.0, Ur Specific [place] 1.010, Urine Protein 500 H, Urine Glucose (UA) Normal, Urine Ketones Negative, Urine Occult Blood 250 H, Urine Nitrite Negative, Urine Bilirubin Negative, Urine Urobilinogen Normal, Ur Leukocyte Esterase 100 H, Urine RBC 25-50 SEEN, Urine WBC 10-25 SEEN, Ur Squamous Epith Cells 0-5 SEEN, Urine Bacteria RARE, Urine Mucus 0 SEEN Radiology Impression Brain CT 07/15/22 21:41 IMPRESSION: No acute abnormality. CT angiogram and/or MRI may be helpful to evaluate for acute infarct as clinically indicated. Electronically Signed: Blanca Gregory MD at 22:35 EDT , Abdomen/Pelvis CT 07/15/22 22:12 IMPRESSION: 1. Atrophic [place] kidneys with marked dilatation of the right renal collecting system with prominent wall suggests inflammatory process pyelitis and/or pyelonephritis superimposed on chronic obstructive changes. Right renal transplant without hydronephrosis. 2. Marked bladder wall thickening consistent with cystitis. Other process or malignancy not excluded. 3. Innumerable soft tissue nodules mesenteric adenopathy and/or varices, with suboptimal assessment. This is new compared to the prior CT from 2018. Larger mass versus unopacified small bowel in the right abdomen. 4. Cholelithiasis with thickened gallbladder wall, ultrasound correlation may be helpful to evaluate for acute cholecystitis if clinically indicated. 5. Findings in the lower lungs suggesting component of pulmonary edema. Electronically Signed: Blanca Gergory MD at 22:48 EDT , Gallbladder Ultrasound 07/15/22 22:51 IMPRESSION: Small atrophic right kidney with hydronephrosis. Transplanted pelvic kidney with good vascularity. Gallbladder wall thickening with cholelithiasis and sludge. Electronically Signed: Renato Lawson DO at 23:53 EDT Reading Location ID and State: [facility] / [place] Tel [phone], Service support , Charges/Coding Visit Charges Inpatient E&M: 59647 Init Hosp L2
[2022-07-16 07:02] LABS: Differential Indicated SCAN CRITERIA MET
--- NOTE | 2022-07-16 07:07 | PN.HOSP_ITS ---
Reason for Visit Reason for Visit: Diagnoses Unspecified infectious disease (07/15/22) Other encephalopathy (07/15/22) Urinary tract infection, site not specified (07/15/22) Subjective Subjective Planes of feeling sore. Objective Data Objective Data Vital Signs: Vital Signs Temp Pulse Resp BP Pulse Ox O2 Del Method 38.2 C H 110 H 20 H 129/94 H 92 Room Air 07/16/22 06:10 07/16/22 06:10 07/16/22 06:10 07/16/22 06:10 07/16/22 06:10 07/16/22 06:10 Oxygen Delivery Method Room Air Weight: 75.7 kg Body Mass Index (BMI) 25.3 Intake & Output: Intake and Output for Last 24 Hours 07/14/22 07/15/22 07/16/22 23:59 23:59 23:59 Intake Total 809 / 809 Output Total 750 / 750 Balance 59 / Lab / Micro Data Result Diagrams: 07/16/22 06:44 07/16/22 06:44 Labs: Laboratory Results - last 24 hr 07/15/22 21:40: WBC 4.3 L, RBC 3.61 L, Hgb 11.2 L, Hct 34.8 L, MCV 96.4 H, MCH 31.0, MCHC 32.2, RDW Std Deviation 50.3 H, RDW Coeff of Anil 14.3, Plt Count 127 L, MPV 11.8, Immature Gran % (Auto) 0.200, Neut % (Auto) 46.6 L, Lymph % (Auto) 27.3, [place] % (Auto) 18.2 H, Eos % (Auto) 6.5 H, Baso % (Auto) 1.2 H, Absolute Neuts (auto) 2.0, Absolute Lymphs (auto) 1.18, Nucleated RBC % 0 07/15/22 21:40: Sodium 141, Potassium 3.6, Chloride 112 H, Carbon Dioxide 22.0, Anion Gap 7, BUN 19 H, Creatinine 1.27, Estim Creat Clear Calc 72.13, Est GFR (MDRD) Af Amer 76, Est GFR (MDRD) Non-Af 63, BUN/Creatinine Ratio 15.0, Glucose 104, Calcium 8.4 L, Total Bilirubin 1.30 H, AST 49 H, ALT 42, Alkaline Phosphatase 82, Troponin I High Sens 22, Total Protein 6.7, Albumin 3.3, Globulin 3.4, Albumin/Globulin Ratio 1.0 07/15/22 21:40: Lactic Acid 1.7 07/15/22 22:00: Ammonia 35.0 H 07/15/22 22:04: Urine Color Yellow, Urine Clarity Sl. Cloudy, Urine pH 7.0, Ur Specific [place] 1.010, Urine Protein 500 H, Urine Glucose (UA) Normal, Urine Ketones Negative, Urine Occult Blood 250 H, Urine Nitrite Negative, Urine Bilirubin Negative, Urine Urobilinogen Normal, Ur Leukocyte Esterase 100 H, Urine RBC 25-50 SEEN, Urine WBC 10-25 SEEN, Ur Squamous Epith Cells 0-5 SEEN, Urine Bacteria RARE, Urine Mucus 0 SEEN 07/16/22 06:44: WBC 3.8 L, RBC 3.18 L, Hgb 9.9 L, Hct 30.5 L, MCV 95.9 H, MCH 31.1, MCHC 32.5, RDW Std Deviation 49.9 H, RDW Coeff of Anil 14.2, Plt Count 105 L, MPV 11.0, Immature Gran % (Auto) 0.300, Neut % (Auto) 69.9, Lymph % (Auto) 12.1 L, [place] % (Auto) 14.8 H, Eos % (Auto) 2.4, Baso % (Auto) 0.5, Absolute Neuts (auto) 2.7, Absolute Lymphs (auto) 0.46 L, Nucleated RBC % 0 Radiography Diagnostic Testing: Radiology Impression Brain CT 07/15/22 21:41 IMPRESSION: No acute abnormality. CT angiogram and/or MRI may be helpful to evaluate for acute infarct as clinically indicated. Electronically Signed: Blanca Gregory MD at 22:35 EDT , Abdomen/Pelvis CT 07/15/22 22:12 IMPRESSION: 1. Atrophic [place] kidneys with marked dilatation of the right renal collecting system with prominent wall suggests inflammatory process pyelitis and/or pyelonephritis superimposed on chronic obstructive changes. Right renal transplant without hydronephrosis. 2. Marked bladder wall thickening consistent with cystitis. Other process or malignancy not excluded. 3. Innumerable soft tissue nodules mesenteric adenopathy and/or varices, with suboptimal assessment. This is new compared to the prior CT from 2018. Larger mass versus unopacified small bowel in the right abdomen. 4. Cholelithiasis with thickened gallbladder wall, ultrasound correlation may be helpful to evaluate for acute cholecystitis if clinically indicated. 5. Findings in the lower lungs suggesting component of pulmonary edema. Electronically Signed: Blanca Gregory MD at 22:48 EDT , Gallbladder Ultrasound 07/15/22 22:51 IMPRESSION: Small atrophic right kidney with hydronephrosis. Transplanted pelvic kidney with good vascularity. Gallbladder wall thickening with cholelithiasis and sludge. Electronically Signed: Renato Lawson DO at 23:53 EDT , Physical Exam Const alert and no apparent distress Constitutional Narrative: Lying in bed. Weak voice. 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 I agree with radiologist interpretation. Review of old records show the patient had VRE w hich was fraire resistant to many antibiotics except gentamicin and linezolid. Review of records show that patient was previously placed on daptomycin by ID as patient is on home mirtazapine which together with linezolid may cause serotonin syndrome. Hold dronabinol and mirtazapine (3) Cholecystitis: PLAN: Suspected bladder wall thickening with cholelithiasis and sludge noted on ultrasound. Add piperacillin/tazobactam General surgery on consultation (4) Debility: PLAN: Generalized weakness PT and OT to work with patient. PLAN: Plan Chronic conditions * History of kidney transplant and CKD stage IIIa. Creatinine presentation is within baseline. Tacrolimus and mycophenolate continued.? Trend CMP. Sodium bicarbonate continued. * Hypertension: Not taking any active medications. Monitor for now. * History of VTE had been on anticoagulation back in 2017 but since his admissions in 2021 he has not been taking. * Vocal cord dysfunction * History of hyperammonemia: No definitive cirrhosis has been identified. But concerning given the patient's history of ascites though ascites may be r elated with his chronic malnutrition. DVT prophylaxis: Subcutaneous Lovenox ordered. Charges/Coding Visit Charges Inpatient E&M: 60401 Subs Hosp L2
[2022-07-16 07:23] LABS: Anion Gap 10 (5-15); BUN 19 mg/dL (7-18); BUN/Creat Ratio 14.1 RATIO (10-20); Calcium,Total 7.5 mg/dL (8.5-10.1); Chloride 112 mmol/L (98-107); Creatinine, Serum 1.35 mg/dL (0.70-1.30); EST Glomerular Filtration Rate 58 mL/min (>60); Est Glom Filt Rate - Afr Amer 71 mL/min (>60); Estimated Creatinine Clearance 59.81 ml/min; Glucose 78 mg/dL (74-106); Potassium 3.5 mmol/L (3.5-5.1); Sodium Level 141 mmol/L (136-145)
[2022-07-16 07:24] LABS: Differential Comment SCANNED
[2022-07-16] MEDS: Lactulose 20 GM/30 ML UDC PO ×4 (09:00→21:24)
[2022-07-16] MEDS: Mycophenolate Mofetil 250 MG Capsule 500 MG PO ×2 (09:01→21:04)
[2022-07-16] MEDS: Tacrolimus Anhydrous 1 MG Capsule 2 MG PO ×2 (09:01→21:04)
[2022-07-16] MEDS: rifAXIMin 550 MG Tablet PO ×2 (09:02→21:05)
[2022-07-16] MEDS: Enoxaparin 40 MG/0.4 ML Syringe SC (11:36)
[2022-07-16 12:14] LABS: Pathologist Review Reviewed
[2022-07-16 12:15] VITALS: BP 97/67; PULSE 104; RESP 18; TEMP 37.9; O2SAT 97
[2022-07-16] MEDS: Acetaminophen 325 MG Tablet 650 MG PO (13:21)
--- NOTE | 2022-07-16 13:21 | CHAPLAIN ---
Type of Pastoral Visit _x__ Initial Visit ___ Follow-up Visit ___ On-call Visit ___ General Patient Visit ___ Spiritual Assessment ___ Family Conference ___ Bereavement ___ Rapid Response ___ Code Blue ___ Other (describe below) Pastoral Care Referral From _x__ Patient ___ Family ___ Nurse ___ Physician ___ Oxide Furnace Tender ___ [place] ___ Other (describe below) Sacrament/Intervention _x__ Active listening ___ Anointing ___ Jewish ___ Bereavement ___ Communion ___ [place] exploration ___ ___ Life review _x__ Prayer ___ Reconciliation ___ Sacrament of Sick _x__ Supportive presence ___ Wedding ___ Other (describe below) Pastoral Comments patient has been seen numerous times in previous admissions; pt remembers this electric refrigerator servicer and starts to talk about a variety of subjects including his health and pain he is feeling; pt talks about his mother in [facility] and brother who helps with oversight; pt asks for electric refrigerator servicer to repeat The Lord's Prayer for support
[2022-07-16] MEDS: Sodium Bicarbonate 650 MG Tablet 1300 MG PO ×2 (14:37→21:05)
[2022-07-16 15:18] VITALS: BP 131/80; PULSE 91; RESP 18; TEMP 37.2; O2SAT 98
--- NOTE | 2022-07-16 16:11 | CASEMGMT ---
Social Work SW entered to pt room for assessment however, Pt sleeping soundly and did not awake. Phone call to pt sister and HCPOA Chandrakant who states pt lives at the [facility] assisted [facility]. Pt has been to the skilled area of the [facility] previously and Chandrakant states the plan is for the pt to return to the [facility], either skilled or assisted living pending pts needs. SW spoke with Virginia from the [facility] and pt will be able to be accept back to the facility. SW will continue to follow to determine appropriate level of care. Plan: [facility] vs [facility]
--- NOTE | 2022-07-16 16:16 | CT_ITS ---
STUDY: CT Abdomen And Pelvis W/O Contrast Injection 07/16/2022 7:36 PM REASON FOR EXAM: Male, 57 years old. ABDOMINAL PAIN f/u possible R ab mass on recent CT ab/pelv noncon TECHNIQUE: Transaxial images were obtained with Oral Gastrografin contrast, and without intravenous contrast. Individualized dose optimization techniques were used for this CT. COMPARISON: 07.15.22. FINDINGS: Increased dilation of the pulmonary vessels since the prior study. The visualized portions of the heart are within normal limits. Unremarkable liver. There are multiple gallstones. Unremarkable spleen. Unremarkable pancreas. Splenic varices. Mesenteric varices. Unremarkable bilateral adrenal glands. There is severe cortical atrophy of the right kidney, consistent with chronic medical renal disease. There is severe cortical atrophy of the left kidney, consistent with chronic medical renal disease. There are hypodensities in the left kidney. These are consistent for cysts. No follow up required. Stable appearance of the right lower quadrant renal transplant kidney. There are hypodensities in the right kidney. These are consistent for cysts. No follow up required. Right [place] kidney severe hydroureter and right hydronephrosis which is stable. Unremarkable visualized stomach. Unremarkable small intestine. Stool throughout the colon. There is non-visualization of the appendix. There are no acute findings of the abdominal aorta. Unremarkable inferior vena cava. Subcentimeter mesenteric lymph nodes. Urinary bladder wall has wall thickening. This can be related to a partially contractile state. However, a cystitis is not excluded. Urinalysis should be performed in an effort to exclude cystitis. There are prostatic calcifications. Unremarkable abdominal wall. There are diffuse degenerative changes of the visualized lumbar spine. CT/Abdomen/Pel W ORAL Cont Only IMPRESSION: (NOT LISTED IN ORDER OF SIGNIFICANCE) Urinary bladder wall has wall thickening. This can be related to a partially contractile state. However, a cystitis is not excluded. Urinalysis should be performed in an effort to exclude cystitis. Constipation. Increased dilation of the pulmonary vessels since the prior study. There are multiple gallstones. Right [place] kidney severe hydroureter and right hydronephrosis which is stable. Other findings as above. Electronically Signed: Hans Wong MD at 19:43 EDT ,
[2022-07-16 21:02] VITALS: BP 133/78; PULSE 98; RESP 20; TEMP 36.8; O2SAT 93
[2022-07-16] MEDS: Ensure Plus High Protein 120 ML LIQUID PO (21:27)
[2022-07-17] VITALS (9 sets, daily range): BP systolic 108–140; BP diastolic 67–86; PULSE 80–91; RESP 18–22; TEMP 36.7–37; O2SAT 91–98
[2022-07-17] MEDS: Lactulose 20 GM/30 ML UDC PO ×6 (01:47→20:38)
[2022-07-17] MEDS: 0.9% Saline Lock 10 ML Syringe IV ×2 (02:01→20:38)
[2022-07-17] MEDS: Sodium Bicarbonate 650 MG Tablet 1300 MG PO ×3 (05:26→20:40)
[2022-07-17] MEDS: Acetaminophen 325 MG Tablet 650 MG PO ×2 (06:00→20:37)
[2022-07-17 06:09] LABS: Absolute Lymphocyte Count 0.72 X10^3/uL (0.83-4.51); Absolute Neutrophil Count 2.1 X10^3/uL (2.0-7.7); Basophil# 0.03 X10^3/uL; Basophil% 0.8 % (0-1); Eosinophil# 0.15 X10^3/uL; Hematocrit 30.5 % (40-54); Hemoglobin 9.9 g/dL (13.0-16.5); Lymphocyte # 0.72 X10^3/ul (0.83-4.51); Lymphocyte % 19.4 % (19-41); Mean Corp Hgb Conc 32.5 g/dL (32-36); Mean Corpuscular Hgb 31.4 pg (27.0-32.0); Mean Corpuscular Volume 96.8 fL (80-94); Monocyte# 0.67 X10^3/uL; Monocyte% 18.1 % (0-10); NRBC Flagged by Analyzer 0 % (0-5); Neutrophil # 2.14 X10^3/uL (2.7-7.7); Neutrophil % 57.7 % (47-70); Platelet Count 100 K/mm3 (150-450); RBC Distribution Width CV 14.6 % (11.6-14.6); Red Blood Count 3.15 M/mm3 (4.6-6.2); White Blood Count 3.7 K/mm3 (4.4-11.0)
[2022-07-17 06:47] LABS: ALB/GLOB Ratio 0.9 RATIO (0.9-2.4); AST(SGOT) 45 U/L (15-37); Alanine Aminotransfer ALT/SGPT 33 U/L (16-61); Albumin, Serum 2.7 g/dL (3.2-5.0); Alkaline Phosphatase 68 U/L (45-117); Anion Gap 8 (5-15); BUN 21 mg/dL (7-18); BUN/Creat Ratio 12.4 RATIO (10-20); Chloride 117 mmol/L (98-107); Creatinine, Serum 1.69 mg/dL (0.70-1.30); EST Glomerular Filtration Rate 45 mL/min (>60); Est Glom Filt Rate - Afr Amer 54 mL/min (>60); Estimated Creatinine Clearance 47.78 ml/min; Globulin 2.9 g/dL (2.2-4.2); Glucose 91 mg/dL (74-106); Potassium 3.8 mmol/L (3.5-5.1); Protein, Total 5.6 g/dL (6.4-8.2); Sodium Level 144 mmol/L (136-145)
--- NOTE | 2022-07-17 07:35 | PN.HOSP_ITS ---
Reason for Visit Reason for Visit: Diagnoses Unspecified infectious disease (07/15/22) Metabolic encephalopathy (07/15/22) Other encephalopathy (07/15/22) Cholecystitis, unspecified (07/15/22) Urinary tract infection, site not specified (07/15/22) Other malaise (07/15/22) Abnormal findings on diagnostic imaging of other abdominal regions, including retroperitoneum (07/15/22) Subjective Subjective Complains of trouble swallowing. Objective Data Objective Data Vital Signs: Vital Signs Temp Pulse Resp BP Pulse Ox O2 Del Method 36.8 C 80 22 H 108/67 95 Room Air 07/17/22 05:29 07/17/22 05:29 07/17/22 05:29 07/17/22 05:29 07/17/22 05:29 07/17/22 05:29 Oxygen Delivery Method Room Air Weight: 75.7 kg Body Mass Index (BMI) 25.3 Intake & Output: Intake and Output for Last 24 Hours 07/15/22 07/16/22 07/17/22 23:59 23:59 23:59 Intake Total 3659 / 3659 109 / 109 Output Total 1625 / 1625 500 / 500 Balance 2033 / 203 -391 / -391 Lab / Micro Data Result Diagrams: 07/17/22 05:48 07/17/22 05:48 Labs: Laboratory Results - last 24 hr 07/16/22 06:44: Diff Path Review Reviewed 07/17/22 05:48: WBC 3.7 L, RBC 3.15 L, Hgb 9.9 L, Hct 30.5 L, MCV 96.8 H, MCH 31.4, MCHC 32.5, RDW Std Deviation 51.0 H, RDW Coeff of Anil 14.6, Plt Count 100 L, MPV 12.0, Immature Gran % (Auto) 0.000, Neut % (Auto) 57.7, Lymph % (Auto) 19.4, [place] % (Auto) 18.1 H, Eos % (Auto) 4.0, Baso % (Auto) 0.8, Absolute Neuts (auto) 2.1, Absolute Lymphs (auto) 0.72 L, Nucleated RBC % 0 07/17/22 05:48: Sodium 144, Potassium 3.8, Chloride 117 H, Carbon Dioxide 19.0 L , Anion Gap 8, BUN 21 H, Creatinine 1.69 H, Estim Creat Clear Calc 47.78, Est GFR (MDRD) Af Amer 54 L, Est GFR (MDRD) Non-Af 45 L, BUN/Creatinine Ratio 12.4, Glucose 91, Calcium 8.0 L, Total Bilirubin 1.60 H, AST 45 H, ALT 33, Alkaline Phosphatase 68, Total Protein 5.6 L, Albumin 2.7 L, Globulin 2.9, A lbumin/Globulin Ratio 0.9 Radiography Diagnostic Testing: Radiology Impression Abdomen CT 07/16/22 16:16 IMPRESSION: (NOT LISTED IN ORDER OF SIGNIFICANCE) Urinary bladder wall has wall thickening. This can be related to a partially contractile state. However, a cystitis is not excluded. Urinalysis should be performed in an effort to exclude cystitis. Constipation. Increased dilation of the pulmonary vessels since the prior study. There are multiple gallstones. Right [place] kidney severe hydroureter and right hydronephrosis which is stable. Other findings as above. Electronically Signed: Hans Wong MD at 19:43 EDT , Physical Exam Const alert and no apparent distress Constitutional Narrative: Hypophonic. 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 Further sensitivities pending. (2) Metabolic encephalopathy: PLAN: Acute infection encephalopathy secondary to acute pyelonephritis plus hyperammonia Abdomen pelvis CT showed mild dilatation of the right renal collecting system.marked bladder wall thickness consistent with cystitis. I agree with radiologist interpretation. Review of old records show the patient had VRE which was fraire resistant to many antibiotics except gentamicin and linezolid. Review of records show that patient was previously placed on daptomycin by ID as patient is on home mirtazapine which together with linezolid may cause serotonin syndrome. Hold dronabinol and mirtazapine (3) Cholecystitis: PLAN: Ruled out. Seen by general surgery who reviewed previous images and patient's had chronic gallbladder wall thickening. (4) Debility: PLAN: Generalized weakness PT and OT to work with patient. (5) Abnormal CT of the abdomen: PLAN: CT with contrast did not visualize any mass. (6) PRISCILLA (acute kidney injury): PLAN: Baseline creatinine is 1.11. Currently up to 1.69, was 1.35 on the 16th. Patient did have a CT with contrast 16 but without that was with oral contrast so I do not feel that that was a contributing factor [place] with antibiotics or poor nutritional intake patient is a renal transplant patient. Will administer IV fluids and reevaluate. (7) Severe protein-calorie malnutrition: PLAN: Complicates care and recovery Seen by nutrition Patient to be on cardiac/sodium restricted diet. Ensure Plus high-protein 4 times daily. PLAN: Plan Chronic conditions * History of kidney transplant and CKD stage IIIa. Creatinine presentation is within baseline. Tacrolimus and mycophenolate continued.? Trend CMP. Sodium bicarbonate continued. * Hypertension: Not taking any active medications. Monitor for now. 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 * Vocal cord dysfunction * History of hyperammonemia: No definitive cirrhosis has been identified. But concerning given the patient's history of ascites though ascites may be related with his chronic malnutrition. DVT prophylaxis: Subcutaneous Lovenox ordered. Charges/Coding Visit Charges Inpatient E&M: 94156 Subs Hosp L2
[2022-07-17] MEDS: 0.9% Normal Saline 1,000 ML 150 ML IV (07:58)
[2022-07-17] MEDS: Enoxaparin 40 MG/0.4 ML Syringe SC (08:00)
[2022-07-17] MEDS: Mycophenolate Mofetil 250 MG Capsule 500 MG PO ×2 (08:00→20:40)
[2022-07-17] MEDS: Tacrolimus Anhydrous 1 MG Capsule 2 MG PO ×2 (08:01→20:40)
[2022-07-17] MEDS: Ensure Plus High Protein 120 ML LIQUID PO ×4 (08:01→20:38)
[2022-07-17] MEDS: rifAXIMin 550 MG Tablet PO ×2 (08:02→20:41)
--- NOTE | 2022-07-17 08:28 | PN.SURG_ITS ---
Subjective Subjective Patient found resting in bed this morning. He reports that he is trying to conserve his voice. He states that he is still having some abdominal pain and that he just needs to rest. Objective Data Objective Data Vital Signs: Vital Signs Temp Pulse Resp BP Pulse Ox O2 Del Method 98.2 F 80 22 H 108/67 95 Room Air 07/17/22 05:29 07/17/22 05:29 07/17/22 05:29 07/17/22 05:29 07/17/22 05:29 07/17/22 05:29 Oxygen Delivery Method Room Air Weight: 166 lb 14.239 oz Body Mass Index (BMI) 25.3 Intake & Output: Intake and Output for Last 24 Hours 07/15/22 07/16/22 07/17/22 23:59 23:59 23:59 Intake Total 3659 / 3659 109 / 109 Output Total 1625 / 1625 500 / 500 Balance 2033 / 2033 -391 / -391 Lab / Micro Data Result Diagrams: 07/17/22 05:48 07/17/22 05:48 Labs: Laboratory Results - last 24 hr 07/16/22 06:44: Diff Path Review Reviewed 07/17/22 05:48: WBC 3.7 L, RBC 3.15 L, Hgb 9.9 L, Hct 30.5 L, MCV 96.8 H, MCH 31.4, MCHC 32.5, RDW Std Deviation 51.0 H, RDW Coeff of Anil 14.6, Plt Count 100 L, MPV 12.0, Immature Gran % (Auto) 0.000, Neut % (Auto) 57.7, Lymph % (Auto) 19.4, [place] % (Auto) 18.1 H, Eos % (Auto) 4.0, Baso % (Auto) 0.8, Absolute Neuts (auto) 2.1, Absolute Lymphs (auto) 0.72 L, Nucleated RBC % 0 07/17/22 05:48: Sodium 144, Potassium 3.8, Chloride 117 H, Carbon Dioxide 19.0 L , Anion Gap 8, BUN 21 H, Creatinine 1.69 H, Estim Creat Clear Calc 47.78, Est GFR (MDRD) Af Amer 54 L, Est GFR (MDRD) Non-Af 45 L, BUN/Creatinine Ratio 12.4, Glucose 91, Calcium 8.0 L, Total Bilirubin 1.60 H, AST 45 H, ALT 33, Alkaline Phosphatase 68, Total Protein 5.6 L, Albumin 2.7 L, Globulin 2.9, Albumin/Globulin Ratio 0.9 Radiography Diagnostic Testing: Radiology Impression Abdomen CT 07/16/22 16:16 IMPRESSION: (NOT LISTED IN ORDER OF SIGNIFICANCE) Urinary bladder wall has wall thickening. This can be related to a partially contractile state. However, a cystitis is not excluded. Urinalysis should be performed in an effort to exclude cystitis. Constipation. Increased dilation of the pulmonary vessels since the prior study. There are multiple gallstones. Right [place] kidney severe hydroureter and right hydronephrosis which is stable. Other findings as above. Electronically Signed: Hans Wong MD at 19:43 EDT , Physical Exam Resp normal respiratory effort GI GI Narrative: Nondistended, soft, patient winces before palpation, but with deep palpation there is a negative Gannon sign and normal abdominal wall compliance Assessment & Plan Assessment/Plan (1) Abnormal CT of the abdomen: PLAN: Is a 57-year-old male admitted for altered mental status he was evaluated for an abnormality of his noncontrasted CT imaging obtained on admission. Repeat CT imaging with enteral contrast demonstrates that the patient's 7.5 x 4.5 area of possible mass versus unopacified bowel does, indeed, correspond to the location of this opacified cecum on repeat imaging. Therefore, I do not find any indication to pursue further work-up. Recommend continued treatment measures per primary team and nephrology for admitting presentation of altered mental status and pyelonephritis. Charges/Coding Visit Charges Inpatient E&M: 38083 Subs Hosp L2
--- NOTE | 2022-07-17 14:09 | CASEMGMT ---
Social Work SW spoke with [place] at the [facility] and updated on pt. [place] states that they can accommodate pt in Assisted Living but could also take into the skilled unit for rehab. [place] states that placement is up to pt family, dependent on what their wishes are. Phone call placed to pt brother Alejo to discuss discharge plan. Alejo refusing to make discharge plan at this time stating he does not even know medical diagnosis or reason for hospitalization and therefore he will not determine discharge plan at this time. STUART updated physician and requested update be provided to pt brother. Plan: Pt from [facility]. Will determine if pt will return to AL or Skilled in which precert will be needed. AHMET Hernandez
--- NOTE | 2022-07-17 15:35 | NURSING ---
spoke w/ pt mother who is currently a patient @ [facility]-updated her on Skyler' care and improvement today
[2022-07-18 01:10] VITALS: BP 102/53; PULSE 82; RESP 18; TEMP 36.6; O2SAT 96
[2022-07-18] MEDS: Lactulose 20 GM/30 ML UDC PO ×6 (01:12→22:22)
[2022-07-18] MEDS: Sodium Bicarbonate 650 MG Tablet 1300 MG PO ×3 (06:57→22:23)
[2022-07-18 07:04] VITALS: BP 126/85; PULSE 86; RESP 20; TEMP 37.6; O2SAT 94
--- NOTE | 2022-07-18 07:31 | PN.HOSP_ITS ---
Reason for Visit Reason for Visit: Diagnoses Unspecified infectious disease (07/15/22) Unspecified severe protein-calorie malnutrition (07/15/22) Metabolic encephalopathy (07/15/22) Other encephalopathy (07/15/22) Cholecystitis, unspecified (07/15/22) Acute kidney failure, unspecified (07/15/22) Urinary tract infection, site not specified (07/15/22) Other malaise (07/15/22) Abnormal findings on diagnostic imaging of other abdominal regions, including retroperitoneum (07/15/22) Subjective Subjective Eating well. Still having chest and abdominal pain. Objective Data Objective Data Vital Signs: Vital Signs Temp Pulse Resp BP Pulse Ox O2 Del Method 37.6 C H 86 20 H 126/85 H 94 Room Air 07/18/22 07:04 07/18/22 07:04 07/18/22 07:04 07/18/22 07:04 07/18/22 07:04 07/18/22 07:04 Oxygen Delivery Method Room Air Weight: 75.7 kg Body Mass Index (BMI) 25.3 Intake & Output: Intake and Output for Last 24 Hours 07/16/22 07/17/22 07/18/22 23:59 23:59 23:59 Intake Total 3659 / 3659 3018 / 3018 Output Total 1625 / 1625 900 / 1200 800 / 800 Balance 2033 / 2033 2118 / 1818 -800 / -800 Lab / Micro Data Result Diagrams: 07/18/22 07:10 07/18/22 07:10 Micro: Microbiology 07/15/22 22:04 Urine, Catheterized Urine Culture - Final Vancomycin Resist. E. faecium Physical Exam Const alert and no apparent distress Constitutional Narrative: cachectic. HEENT HEENT Narrative: temporal wasting. 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 faecium: Sensitive to gentamicin, linezolid and nitrofurantoin. The NYA of the nitrofurantoin is 32 and 2 for linezolid. Given the patient's frequent history of recurrent urinary tract infections, we will utilize linezolid and treat through the (2) Metabolic encephalopathy: PLAN: Acute infection encephalopathy secondary to acute pyelonephritis plus hyperammonia Abdomen pelvis CT showed mild dilatation of the right renal collecting sys tem.marked bladder wall thickness consistent with cystitis. I agree with radiologist interpretation. Review of old records show the patient had VRE which was fraire resistant to many antibiotics except gentamicin and linezolid. Review of records show that patient was previously placed on daptomycin by ID as patient is on home mirtazapine which together with linezolid may cause serotonin syndrome. Hold dronabinol and mirtazapine (3) Cholecystitis: PLAN: Ruled out. Seen by general surgery who reviewed previous images and patient's had chronic gallbladder wall thickening. (4) Debility: PLAN: Generalized weakness PT and OT to work with patient. (5) Abnormal CT of the abdomen: PLAN: CT with contrast did not visualize any mass. No additional work up. (6) PRISCILLA (acute kidney injury): PLAN: Baseline creatinine is 1.11. Currently up to 1.69, was 1.35 on the 16th. Patient did have a CT with contrast 16 but without that was with oral contrast so I do not feel that that was a contributing factor Dix with antibiotics or poor nutritional intake patient is a renal transplant patient. Will administer IV fluids and reevaluate. (7) Severe protein-calorie malnutrition: PLAN: Complicates care and recovery Seen by nutrition Patient to be on cardiac/sodium restricted diet. Ensure Plus high-protein 4 times daily. PLAN: Plan Chronic conditions * History of kidney transplant and CKD stage IIIa. Creatinine presentation is within baseline. Tacrolimus and mycophenolate continued.? Trend CMP. Sodium bicarbonate continued. * Hypertension: Not taking any active medications. Monitor for now. 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 * Vocal cord dysfunction * History of hyperammonemia: No definitive cirrhosis has been identified. But concerning given the patient's history of ascites though ascites may be related with his chronic malnutrition. DVT prophylaxis: Subcutaneous Lovenox ordered. Charges/Coding Visit Charges Inpatient E&M: 18571 Subs Hosp L2
[2022-07-18 07:44] LABS: Absolute Lymphocyte Count 0.79 X10^3/uL (0.83-4.51); Absolute Neutrophil Count 1.7 X10^3/uL (2.0-7.7); Basophil# 0.03 X10^3/uL; Basophil% 0.9 % (0-1); Eosinophil# 0.28 X10^3/uL; Eosinophils% 8.3 % (0-5); Hematocrit 34.7 % (40-54); Hemoglobin 10.8 g/dL (13.0-16.5); Lymphocyte # 0.79 X10^3/ul (0.83-4.51); Lymphocyte % 23.5 % (19-41); Mean Corp Hgb Conc 31.1 g/dL (32-36); Mean Corpuscular Hgb 30.9 pg (27.0-32.0); Mean Corpuscular Volume 99.4 fL (80-94); Mean Platelet Vol. 12.3 fl (6.2-12.0); Monocyte# 0.56 X10^3/uL; Monocyte% 16.7 % (0-10); NRBC Flagged by Analyzer 0 % (0-5); Neutrophil # 1.69 X10^3/uL (2.7-7.7); Neutrophil % 50.3 % (47-70); Platelet Count 116 K/mm3 (150-450); RBC Distribution Width CV 14.3 % (11.6-14.6); RBC Distribution Width SD 51.9 fl (35.1-43.9); Red Blood Count 3.49 M/mm3 (4.6-6.2); White Blood Count 3.4 K/mm3 (4.4-11.0)
[2022-07-18 08:02] LABS: ALB/GLOB Ratio 0.9 RATIO (0.9-2.4); AST(SGOT) 39 U/L (15-37); Alanine Aminotransfer ALT/SGPT 33 U/L (16-61); Albumin, Serum 2.7 g/dL (3.2-5.0); Alkaline Phosphatase 74 U/L (45-117); Anion Gap 9 (5-15); BUN 16 mg/dL (7-18); BUN/Creat Ratio 12.1 RATIO (10-20); Chloride 115 mmol/L (98-107); Creatinine, Serum 1.32 mg/dL (0.70-1.30); EST Glomerular Filtration Rate 60 mL/min (>60); Est Glom Filt Rate - Afr Amer 72 mL/min (>60); Estimated Creatinine Clearance 61.17 ml/min; Glucose 91 mg/dL (74-106); Potassium 3.9 mmol/L (3.5-5.1); Protein, Total 5.7 g/dL (6.4-8.2); Sodium Level 144 mmol/L (136-145)
[2022-07-18] MEDS: Ensure Plus High Protein 120 ML LIQUID PO ×4 (09:33→22:23)
[2022-07-18] MEDS: Mycophenolate Mofetil 250 MG Capsule 500 MG PO ×2 (09:33→22:25)
[2022-07-18] MEDS: Enoxaparin 40 MG/0.4 ML Syringe SC (09:33)
[2022-07-18] MEDS: Tacrolimus Anhydrous 1 MG Capsule 2 MG PO ×2 (09:34→22:26)
[2022-07-18] MEDS: Linezolid 600 MG Tablet PO ×2 (09:34→22:26)
[2022-07-18] MEDS: rifAXIMin 550 MG Tablet PO ×2 (09:34→22:26)
--- NOTE | 2022-07-18 10:34 | CASEMGMT ---
Social Work SW spoke w/Dr. Solis, he spoke w/pt's brother and the plan is for snf rather than assisted living. SW called brother Alejo, confirmed the plan is for [facility] to the snf side, then to the assisted living when pt is able. As per RN, pt's mother had called in and spoke to RN about [facility] as she is there at present. SW spoke w/Alejo about this. He states that he is POA, states he does have updated POA forms(as forms in the chart are from 2012 and state pt's mother is POA). SW asked him to bring in the papers. He states plan is [facility], not [facility]. He states since the plan is to get him eventually back to the assisted living, states he has a room there, it would be much too confusing to send him to a different facility He states if their mother asks about anything related to this, to check w/Alejo first. No list of SNF's needed as Alejo wants pt to go to [facility] for continuity. SW explained we need a precert, so we will work on this Wednesday, and pt will definitely not be leaving on the weekend. SW sent referral to [facility] via [facility], and also asked [place] to send over updated POA papers if they have them. SW will continue to follow. Plan: [facility], skilled, pending precert. MARTHA Seymour
--- NOTE | 2022-07-18 10:39 | NURSING ---
ATTEMPT TO CALL AND UPDATE MOTHER ROYAL UNSUCESSFUL X2
--- NOTE | 2022-07-18 10:54 | NURSING ---
SPOKE WITH PT MOTHER Neptali AND UPDATED HER ON PT PROGRESS AND WILL PROBABLY RETURN TO THE [facility] ON WEDNESDAY
[2022-07-18 12:55] VITALS: BP 131/67; PULSE 87; RESP 18; TEMP 36.7; O2SAT 98
[2022-07-18 14:18] VITALS: O2SAT 94
[2022-07-18] MEDS: MELATONIN 3 MG TABLET PO (22:23)
[2022-07-18] MEDS: Acetaminophen 325 MG Tablet 650 MG PO (22:23)
[2022-07-19] MEDS: Lactulose 20 GM/30 ML UDC PO ×6 (02:21→20:21)
[2022-07-19 02:24] VITALS: BP 93/58; PULSE 104; RESP 16; TEMP 36.6; O2SAT 98
[2022-07-19] MEDS: Sodium Bicarbonate 650 MG Tablet 1300 MG PO ×3 (05:47→20:23)
--- NOTE | 2022-07-19 08:24 | PN.HOSP_ITS ---
Reason for Visit Reason for Visit: Diagnoses Unspecified infectious disease (07/15/22) Unspecified severe protein-calorie malnutrition (07/15/22) Metabolic encephalopathy (07/15/22) Other encephalopathy (07/15/22) Cholecystitis, unspecified (07/15/22) Acute kidney failure, unspecified (07/15/22) Urinary tract infection, site not specified (07/15/22) Other malaise (07/15/22) Abnormal findings on diagnostic imaging of other abdominal regions, including retroperitoneum (07/15/22) Subjective Subjective States that he feels well today. Pt reportedly acting inappropriate with female staff where he will be aroused and request female nursing/aides frequently. Today, he has a male nurse and is not requesting his services that frequently. Objective Data Objective Data Vital Signs: Vital Signs Temp Pulse Resp BP Pulse Ox O2 Del Method 36.6 C 104 H 16 93/58 L 98 Room Air 07/19/22 02:24 07/19/22 02:24 07/19/22 02:24 07/19/22 02:24 07/19/22 02:24 07/19/22 02:24 Oxygen Delivery Method Room Air Weight: 75.7 kg Body Mass Index (BMI) 25.3 Intake & Output: Intake and Output for Last 24 Hours 07/17/22 07/18/22 07/19/22 23:59 23:59 23:59 Intake Total 3018 / 3018 1159 / 1159 Output Total 900 / 1200 2049 / 2049 250 / 250 Balance 2118 / 1818 -891 / -891 -250 / -250 Lab / Micro Data Result Diagrams: 07/18/22 07:10 07/18/22 07:10 Micro: Microbiology 07/15/22 22:00 Blood Culture (Wb) - Left Hand Blood Culture - Preliminary No growth in 48 hours. 07/15/22 21:40 Blood Culture (Wb) - Left Forearm Blood Culture - Preliminary No growth in 48 hours. 07/15/22 22:04 Urine, Catheterized Urine Culture - Final Vancomycin Resist. E. faecium Physical Exam Const Constitutional Narrative: More alert and interactive today. 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 faecium: Sensitive to gentamicin, linezolid and nitrofurantoin. The NYA of the nitrofurantoin is 32 and 2 for linezolid. Given the patient's frequent history of recurrent urinary tract infections, we will utilize linezolid and treat through the (2) Metabolic encephalopathy: PLAN: Acute infection encephalopathy secondary to acute pyelonephritis plus hyperammonia Abdomen pelvis CT showed mild dilatation of the right renal collecting system.marked bladder wall thickness consistent with cystitis. I agree with radiologist interpretation. Review of old records show the patient had VRE which was fraire resistant to many antibiotics except gentamicin and linezolid. Review of records show that patient was previously placed on daptomycin by ID as patient is on home mirtazapine which together with linezolid may cause serotonin syndrome. Hold dronabinol and mirtazapine (3) Cholecystitis: PLAN: Ruled out. Seen by general surgery who reviewed previous images and patient's had chronic gallbladder wall thickening. (4) Debility: PLAN: Generalized weakness PT and OT to work with patient. (5) Abnormal CT of the abdomen: PLAN: CT with contrast did not visualize any mass. No additional work up. (6) PRISCILLA (acute kidney injury): PLAN: Baseline creatinine is 1.11. Currently up to 1.69, was 1.35 on the 16th. Patient did have a CT with contrast 16 but without that was with oral contrast so I do not feel that that was a contributing factor Roger with antibiotics or poor nutritional intake patient is a renal transplant patient. Will administer IV fluids and reevaluate. (7) Severe protein-calorie malnutrition: PLAN: Complicates care and recovery Seen by nutrition Patient to be on cardiac/sodium restricted diet. Ensure Plus high-protein 4 marychuy es daily. PLAN: Plan Chronic conditions * History of kidney transplant and CKD stage IIIa. Creatinine presentation is within baseline. Tacrolimus and mycophenolate continued.? Trend CMP. Sodium bicarbonate continued. * Hypertension: Not taking any active medications. Monitor for now. 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 * Vocal cord dysfunction * History of hyperammonemia: No definitive cirrhosis has been identified. But concerning given the patient's history of ascites though ascites may be related with his chronic malnutrition. DVT prophylaxis: Subcutaneous Lovenox ordered. Charges/Coding Visit Charges Inpatient E&M: 94545 Subs Hosp L2
[2022-07-19 09:58] VITALS: BP 121/79; PULSE 116; RESP 16; TEMP 36.7; O2SAT 98
[2022-07-19] MEDS: Mycophenolate Mofetil 250 MG Capsule 500 MG PO ×2 (10:02→20:22)
[2022-07-19] MEDS: Enoxaparin 40 MG/0.4 ML Syringe SC (10:03)
[2022-07-19] MEDS: Ensure Plus High Protein 120 ML LIQUID PO ×4 (10:05→20:21)
[2022-07-19] MEDS: Linezolid 600 MG Tablet PO ×2 (10:06→20:22)
[2022-07-19] MEDS: Tacrolimus Anhydrous 1 MG Capsule 2 MG PO ×2 (10:06→20:22)
[2022-07-19] MEDS: rifAXIMin 550 MG Tablet PO ×2 (10:07→20:23)
[2022-07-19 14:29] VITALS: BP 112/73; PULSE 91; RESP 16; TEMP 36.9; O2SAT 94
[2022-07-19 20:31] VITALS: BP 108/62; PULSE 106; RESP 16; TEMP 36.8; O2SAT 96
[2022-07-19 23:42] VITALS: TEMP 36.5
[2022-07-20 02:30] VITALS: BP 112/68; PULSE 102; RESP 18; TEMP 36.6; O2SAT 97
[2022-07-20] MEDS: Lactulose 20 GM/30 ML UDC PO ×4 (02:49→14:18)
[2022-07-20] MEDS: Sodium Bicarbonate 650 MG Tablet 1300 MG PO ×2 (05:45→14:18)
[2022-07-20 08:30] VITALS: BP 122/74; PULSE 90; RESP 18; TEMP 36.5; O2SAT 95
[2022-07-20] MEDS: Linezolid 600 MG Tablet PO (10:19)
[2022-07-20] MEDS: Enoxaparin 40 MG/0.4 ML Syringe SC (10:19)
[2022-07-20] MEDS: Mycophenolate Mofetil 250 MG Capsule 500 MG PO (10:20)
[2022-07-20] MEDS: Tacrolimus Anhydrous 1 MG Capsule 2 MG PO (10:20)
[2022-07-20] MEDS: rifAXIMin 550 MG Tablet PO (10:20)
[2022-07-20] MEDS: 0.9% Saline Lock 10 ML Syringe IV (10:40)
[2022-07-20] MEDS: Ensure Plus High Protein 120 ML LIQUID PO ×2 (10:42→14:18)
--- NOTE | 2022-07-20 11:07 | PN.HOSP_ITS ---
Reason for Visit Reason for Visit: Diagnoses Unspecified infectious disease (07/15/22) Unspecified severe protein-calorie malnutrition (07/15/22) Metabolic encephalopathy (07/15/22) Other encephalopathy (07/15/22) Cholecystitis, unspecified (07/15/22) Acute kidney failure, unspecified (07/15/22) Urinary tract infection, site not specified (07/15/22) Other malaise (07/15/22) Abnormal findings on diagnostic imaging of other abdominal regions, including retroperitoneum (07/15/22) Subjective Subjective Patient is a 57-year-old gentleman with history of neurogenic bladder with frequent UTIs admitted with altered mental status. An assessment of acute infectious encephalopathy made admitted to regular nursing floor for further management Objective Data Objective Data Vital Signs: Vital Signs Temp Pulse Resp BP Pulse Ox O2 Del Method 97.7 F L 90 18 122/74 H 95 Room Air 07/20/22 08:30 07/20/22 08:30 07/20/22 08:30 07/20/22 08:30 07/20/22 08:30 07/20/22 08:30 Oxygen Delivery Method Room Air Weight: 75.7 kg Body Mass Index (BMI) 25.3 Intake & Output: Intake and Output for Last 24 Hours 07/18/22 07/19/22 07/20/22 23:59 23:59 23:59 Intake Total 1159 / 1159 Output Total 2049 / 2049 1250 / 1250 450 / 450 Balance -891 / -891 -1250 / -1250 -450 / -450 Lab / Micro Data Result Diagrams: 07/18/22 07:10 07/18/22 07:10 Micro: Microbiology 07/15/22 22:00 Blood Culture (Wb) - Left Hand Blood Culture - Preliminary No growth in 48 hours. 07/15/22 21:40 Blood Culture (Wb) - Left Forearm Blood Culture - Preliminary No growth in 48 hours. 07/15/22 22:04 Urine, Catheterized Urine Culture - Final Vancomycin Resist. E. faecium Physical Exam Narrative GENERAL: Patient in no apparent distress HEENT: Atraumatic; normocephalic EYES; Anicteric, Normal Conjunctiva NECK; supple, normal thyroid, RESPIRATORY: Diminished to auscultation CARDIOVASCULAR: Regular S1 S2, GI: soft, normoactive bowel sounds, : No Renal angle tenderness; EXTREMITIES: No edema, no clubbing, MUSCULOSKELETAL: no muscle wasting NEURO: Awake; no lateralizing signs. SKIN: No Rash PSYCH; Flat affect Assessment & Plan Assessment/Plan (1) Acute UTI: PLAN: Plan Patient is a 57-year-old gentleman with history of neurogenic bladder with frequent UTIs admitted with altered mental status. An assessment of acute infectious encephalopathy made admitted to regular nursing floor for further management 1.. Acute encephalopathy ? Secondary to acute pyelonephritis treatment did involve the underlying etiology 2. Acute pyelonephritis ? Patient recent cultures are growing VRE. CT of the abdomen and pelvis obtained did demonstrate mild dilatation of the right renal collecting system, mild bladder wall thickness consistent with cystitis. Patient has responded to treatment 3. Acute cholecystitis ruled out 4. History of kidney transplant ? Patient is on tacrolimus and mycophenolate, continued 5. Chronic kidney disease stage IIIa ? Stable monitoring with daily BMPs 6. History of hyperammonemia ? No definitive diagnosis of cirrhosis been made patient is however on Xifaxan 7. Essential hypertension ? Currently not on any medications we will monitor 8. Physical deconditioning - Requested for PT OT eval and social and human services assistant to assist with discharge planning 9. DVT prophylaxis - On enoxaparin Time spent in the patient's overall evaluation,decision-making process, review of diagnostic data, adjustment of management, discussion with other providers, nursing nursing and ancillary staff involved in patient's care documentation, 35 Minutes Charges/Coding Visit Charges Inpatient E&M: 55970 Subs Hosp L2
--- NOTE | 2022-07-20 12:23 | TREXTCAR_ITS ---
Diet Diet Order/Speech Therapy: 07/16/22 15:05 Diet: Cardiac - Heart Healthy Is pt able to select menu?: Yes Therapies Physical Therapy: Eval and Treat Occupational Therapy: Eval and Treat Problem/Diagnosis (1) Acute UTI: Status: Acute Code(s): N39.0 - Urinary tract infection, site not specified Plan Patient is a 57-year-old gentleman with history of neurogenic bladder with frequent UTIs admitted with altered mental status. An assessment of acute infectious encephalopathy made admitted to regular nursing floor for further management 1.. Acute encephalopathy ? Secondary to acute pyelonephritis treatment did involve the underlying etiology 2. Acute pyelonephritis ? Patient recent cultures are growing VRE. CT of the abdomen and pelvis obtained did demonstrate mild dilatation of the right renal collecting system, mild bladder wall thickness consistent with cystitis. Patient has responded to treatment 3. Acute cholecystitis ruled out 4. History of kidney transplant ? Patient is on tacrolimus and mycophenolate, continued 5. Chronic kidney disease stage IIIa ? Stable monitoring with daily BMPs 6. History of hyperammonemia ? No definitive diagnosis of cirrhosis been made patient is however on Xifaxan 7. Essential hypertension ? Currently not on any medications we will monitor 8. Physical deconditioning - Requested for PT OT eval and social services technician to assist with discharge planning 9. DVT prophylaxis - On enoxaparin Time spent in the patient's overall evaluation,decision-making process, review of diagnostic data, adjustment of management, discussion with other providers, nursing nursing and ancillary staff involved in patient's care documentation, 35 Minutes Allergies/Procedures Done in Hospital Allergies red dye Allergy (Verified 07/15/22 21:37) PT UNSURE OF REACTION Type of Care/Length of Stay Estimated LOS: Convalescent Care Less Than 30 days Type of Care Needed: Skilled Rehab Potential: Good Prognosis: Good Additional Orders/Day of Discharge Day of Discharge: 07/20/22 Dietary and Speech Recommendations Dietitian Recommendations/Changes: will continue cardiac/sodium restricted given history of recent malnutrition; ensure plus high protein 120mL 4x/day w/ medpass for additional nutrition if consumed. Consult COURIER DELIVERY DRIVER if issues chewing/swallowing are evident. Will monitor PO intake, renal function and adjust diet as indicated Discharge Plan Admission Admit Date/Time: 07/15/22 23:28 Attending Provider: Rayo Cartagena Primary Care Provider: Mike Bella Consulting Providers: Claus Ricks ; Raúl Calivllo ; Ambrosio Solis Discharge Orders/Prescriptions Prescriptions: New linezolid 600 mg Tablet 600 mg PO BID 10 Days Qty: 0 0RF Ensure Plus High Protein 0.08 gram-1.5 kcal/mL Liquid 120 ml PO 4X/DAY Qty: 0 0RF Continued mycophenolate mofetil 500 MG tablet 500 mg PO 0900,2100 Label Comments: anti rejection multivitamin Tablet 1 tab PO DAILY acetaminophen [Tylenol] 325 mg Tablet 650 mg PO Q6H PRN PRN (Reason: Pain 1-10 Or Fever>100.7) Qty: 0 0RF lactulose 20 gram/30 mL solution 30 ml PO Q4 tacrolimus [Prograf] 1 mg Capsule 1.5 mg PO Q12H dronabinol 2.5 mg capsule 2.5 mg PO BIDAC sodium bicarbonate 650 mg tablet 1,300 mg PO TID tacrolimus 0.5 mg capsule 0.5 mg PO BID Xifaxan 550 mg tablet 550 mg PO BID Discontinued mirtazapine 30 mg tablet 30 mg PO QHS Referrals / Follow Up: Mike Bella MD [Primary Care Provider] - Within 1 Week Disposition Disposition (needs filled in before D/C Order can be placed): Intermediate Facility
--- NOTE | 2022-07-20 12:23 | PCM.DC.SUM ---
Providers Date of Admission: 07/15/22 Date of Discharge: 07/20/22 Primary Care Physician: Dr. Mike Bella MD Consultations 07/16/22 00:44 Consult: General Surgery Routine Consulting Provider: Claus Ricks Reason for Consult: Questionable abdomen mass EMERGENT Consult: No MD Notified: Yes Date Notified: 07/16/22 Time Notified: 00:44 Method of Notification: Text Reason For Visit: UTI Diagnosis Discharge Diagnosis (1) Acute UTI: Status: Acute Code(s): N39.0 - Urinary tract infection, site not specified Plan Patient is a 57-year-old gentleman with history of neurogenic bladder with frequent UTIs admitted with altered mental status. An assessment of acute infectious encephalopathy made admitted to regular nursing floor for further management 1.. Acute encephalopathy ? Secondary to acute pyelonephritis treatment did involve the underlying etiology 2. Acute pyelonephritis ? Patient recent cultures are growing VRE. CT of the abdomen and pelvis obtained did demonstrate mild dilatation of the right renal collecting system, mild bladder wall thickness consistent with cystitis. Patient has responded to treatment 3. Acute cholecystitis ruled out 4. History of kidney transplant ? Patient is on tacrolimus and mycophenolate, continued 5. Chronic kidney disease stage IIIa ? Stable monitoring with daily BMPs 6. History of hyperammonemia ? No definitive diagnosis of cirrhosis been made patient is however on Xifaxan 7. Essential hypertension ? Currently not on any medications we will monitor 8. Physical deconditioning - Requested for PT OT eval and social work assistant to assist with discharge planning 9. DVT prophylaxis - On enoxaparin Time spent in the patient's overall evaluation,decision-making process, review of diagnostic data, adjustment of management, discussion with other providers, nursing nursing and ancillary staff involved in patient's care documentation, 35 Minutes Medications at Discharge Home Medications mycophenolate mofetil 500 mg tablet 500 mg PO 0900,2100 Anti-Rejection 07/14/16 multivitamin 1 tab PO DAILY supplement 02/13/22 acetaminophen 325 mg tablet (Tylenol) 650 mg PO Q6H PRN PRN Pain 1-10 Or Fever>100.7 #0 tabs 04/21/22 lactulose 20 gram/30 mL oral solution 30 ml PO Q4 06/13/22 dronabinol 2.5 mg capsule 2.5 mg PO BIDAC Check with primary doctor 07/16/22 rifaximin 550 mg tablet (Xifaxan) 550 mg PO BID Check with primary doctor 07/16/22 sodium bicarbonate 650 mg tablet 1,300 mg PO TID Check with primary doctor 07/16/22 tacrolimus 0.5 mg capsule, immediate-release 0.5 mg PO BID Check with primary doctor 07/16/22 tacrolimus 1 mg capsule, immediate-release (Prograf) 1.5 mg PO Q12H Check with primary doctor 07/16/22 food supplemt, lactose-reduced 0.08 gram-1.5 kcal/mL oral liquid (Ensure Plus High Protein) 120 ml PO 4X/DAY #0 mL 07/20/22 linezolid 600 mg tablet 600 mg PO BID 10 days #0 tabs 07/20/22 Hospital Course Summary of Care Provided Minutes Spent on Discharge: 35 Physical Exam Narrative GENERAL: Patient in no apparent distress HEENT: Atraumatic; normocephalic EYES; Anicteric, Normal Conjunctiva NECK; supple, normal thyroid, RESPIRATORY: Diminished to auscultation CARDIOVASCULAR: Regular S1 S2, GI: soft, normoactive bowel sounds, : No Renal angle tenderness; EXTREMITIES: No edema, no clubbing, MUSCULOSKELETAL: no muscle wasting NEURO: Awake; no lateralizing signs. SKIN: No Rash PSYCH; Flat affect Weight / BMI Weight Weight: 75.7 kg Body Mass Index (BMI) 25.3 ABG / Lab / Microbiology Data Result Diagrams: 07/18/22 07:10 07/18/22 07:10 Microbiology: Microbiology 07/15/22 22:00 Blood Culture (Wb) - Left Hand Blood Culture - Preliminary No growth in 48 hours. 07/15/22 21:40 Blood Culture (Wb) - Left Forearm Blood Culture - Preliminary No growth in 48 hours. 07/15/22 22:04 Urine, Catheterized Urine Culture - Final Vancomycin Resist. E. faecium D/C Instructions Discharge Diet: No restrictions Discharge Activity: Return to Normal Activity Call your doctor if you observe: Fever of 101 or Higher, Shortness of breath, Fainting spells and Chest pain Meaningful Use Info Meaningful Use Diagnoses (Choose all that apply): None applicable Discharge Plan Admission Admit Date/Time: 07/15/22 23:28 Attending Provider: Rayo Cartagena Primary Care Provider: Mike Bella Consulting Providers: Claus Ricks ; Raúl Calvillo ; Ambrosio Solis Discharge Orders/Prescriptions Prescriptions: New linezolid 600 mg Tablet 600 mg PO BID 10 Days Qty: 0 0RF Ensure Plus High Protein 0.08 gram-1.5 kcal/mL Liquid 120 ml PO 4X/DAY Qty: 0 0RF Continued mycophenolate mofetil 500 MG tablet 500 mg PO 0900,2100 Label Comments: anti rejection multivitamin Tablet 1 tab PO DAILY acetaminophen [Tylenol] 325 mg Tablet 650 mg PO Q6H PRN PRN (Reason: Pain 1-10 Or Fever>100.7) Qty: 0 0RF lactulose 20 gram/30 mL solution 30 ml PO Q4 tacrolimus [Prograf] 1 mg Capsule 1.5 mg PO Q12H dronabinol 2.5 mg capsule 2.5 mg PO BIDAC sodium bicarbonate 650 mg tablet 1,300 mg PO TID tacrolimus 0.5 mg capsule 0.5 mg PO BID Xifaxan 550 mg tablet 550 mg PO BID Discontinued mirtazapine 30 mg tablet 30 mg PO QHS Referrals / Follow Up: Mike Bella MD [Primary Care Provider] - Within 1 Week Disposition Disposition (needs filled in before D/C Order can be placed): [facility]ustodial Facility Charges/Coding Visit Charges Inpatient E&M: 74117 Disch Hosp >30min
--- NOTE | 2022-07-20 13:08 | CASEMGMT ---
Social Work? SW in to pt room to verify advance directives. Pt confirmed has AD and named?brother ,?Alejo, as agent. SW called Alejo and made aware documents are not on file and if pt would like to bring these documents in the documents can be dropped off at the Medical Records department. Alejo voiced understanding.?? AHMET Ortiz?
--- NOTE | 2022-07-20 13:50 | CASEMGMT ---
Social Work? STUART notified pt and pt family of discharge to [facility] today. STUART attempted to set up wheelchair transportation through [facility] but was told that due to pt ISO precautions that pt would have to go via stretcher and that it would not be set up through [facility]. STUART called [facility] and related information given by [facility] that pt would need cot due to ISO precautions. SW was told by [facility] rep that pt did not need cot for isolations but that [facility] would send cot for pt at 2:30pm. STUART faxed all discharge orders to [facility] via [employer] and notified of discharge time. SW notified pt nurse of transport time. SW made copies of discharge orders and placed on pt chart. Sent original orders in envelope with pt upon discharge.??STUART called pt brother and Alejo DYSON, of discharge time via phone. Alejo voiced understanding. Disposition: Avenue, intermediate, level of care? AHMET Ortiz
[2022-07-20 14:26] VITALS: BP 114/69; PULSE 92; RESP 18; TEMP 36.8; O2SAT 98
== END 2022-07-20 14:20 | disposition skilled nursing facility (03) | DRG 689 ==
LOC: ED 23:38 → MS3 23:45
PROVIDERS: Admitting Provider Hospitalist; Emergency Provider Emergency Medicine; PCP Family Medicine; Visit Provider Internal Medicine
DX: N13.6 Pyonephrosis (principal); G93.41 Metabolic encephalopathy; E43 Unspecified severe protein-calorie malnutrition; K76.6 Portal hypertension; R18.8 Other ascites; Z94.0 Kidney transplant status; N17.9 Acute kidney failure, unspecified; N30.90 Cystitis, unspecified without hematuria; K76.89 Other specified diseases of liver; N18.32 Chronic kidney disease, stage 3b; N18.31 Chronic kidney disease, stage 3a; K82.8 Other specified diseases of gallbladder; I12.9 Hypertensive chronic kidney disease with stage 1 through stage 4 chronic kidney disease, or unspecified chronic kidney disease; B95.2 Enterococcus as the cause of diseases classified elsewhere; N31.9 Neuromuscular dysfunction of bladder, unspecified; Z79.2 Long term (current) use of antibiotics; N10 Acute pyelonephritis; R51.9 Headache, unspecified; R59.0 Localized enlarged lymph nodes; N12 Tubulo-interstitial nephritis, not specified as acute or chronic; R13.10 Dysphagia, unspecified; Z86.718 Personal history of other venous thrombosis and embolism; R93.5 Abnormal findings on diagnostic imaging of other abdominal regions, including retroperitoneum
CPT/HCPCS: 36415; 70450; 74176; 76705; 80048; 80053; 81001; 82140; 83605; 84484; 85025; 87040; 87077; 87086; 87088; 87186; 87426; 97110; 97162; 97166; 97530; 97535; 99285; J0878; J2020; J7030; J7050; P9612; A4216; J3490

== ENCOUNTER 2022-07-31 07:18 | Emergency (ER) | payer MEDICARE, MEDICAID, SELFPAY ==
[2022-07-31] VITALS (7 sets, daily range): BP systolic 133–147; BP diastolic 77–95; PULSE 62–96; RESP 13–16; TEMP 37.2–37.3; O2SAT 93–98; BMI 23.1
--- NOTE | 2022-07-31 07:30 | EKG12_ITS ---
Test Reason : FEVER Blood Pressure : / mmHG Vent. Rate : 095 BPM Atrial Rate : 095 BPM P-R Int : 132 ms QRS Dur : 104 ms QT Int : 424 ms P-R-T Axes : 032 026 064 degrees QTc Int : 532 ms Normal sinus rhythm Nonspecific ST and T wave abnormality Abnormal ECG Confirmed by MIGUEL MORENO, TR ([id number]), photo editor CARLOS GARCIA ([id number]) on 08/03/2022 11:05:21 AM Referred By: ROSCOE Confirmed By:VAMSHI RIVERA MD
--- NOTE | 2022-07-31 07:34 | EDS_ITS ---
HPI History of Present Illness Chief Complaint: Fever Detail of Chief Complaint: Sent in from an extended care facility with a fever. Informant: patient and EMS Onset/Context/Timing Onset: Today Context: Gradual Onset Timing: Continuous Current Severity: Mild Maximum Severity: Mild Narrative Narrative: 57-year-old male with extensive past medical history including encephalopathy, pulmonary emboli and prior kidney transplant. Patient himself is a very limited informant. Currently is a resident at the [facility]. Reportedly had a fever and they wanted him evaluated. He has no complaints. Prior similar symptoms: Yes Recent Illness/Hospitalization: No PFSH [facility] Medical History Anemia in chronic illness Bladder dysfunction Bronchitis Chronic kidney disease, stage 3b CKD (chronic kidney disease), stage III Congenital nystagmus DVT (deep venous thrombosis) History of DVT (deep vein thrombosis) History of encephalopathy History of pulmonary embolism HTN (hypertension) Immunosuppressed status Mild intellectual disability Neurogenic bladder disorder Neutropenia Pancytopenia Pulmonary embolism Severe protein-calorie malnutrition Urinary retention Vocal cord dysfunction Home Medications mycophenolate mofetil 500 mg tablet 500 mg PO 0900,2100 Anti-Rejection 07/14/16 [History Last Taken 07/30/22] multivitamin 1 tab PO DAILY supplement 02/13/22 [History Last Taken 07/30/22] acetaminophen 325 mg tablet (Tylenol) 650 mg PO Q6H PRN PRN Pain 1-10 Or Fever>100.7 #0 tabs 04/21/22 [Rx Last Taken 06/02/22] lactulose 20 gram/30 mL oral solution 30 ml PO Q4 06/13/22 [History Last Taken 07/31/22] rifaximin 550 mg tablet (Xifaxan) 550 mg PO BID Check with primary doctor 07/16/22 [History Last Taken 07/30/22] sodium bicarbonate 650 mg tablet 1,300 mg PO TID Check with primary doctor 07/16/22 [History Last Taken 07/31/22] tacrolimus 1 mg capsule, immediate-release (Prograf) 1.5 mg PO Q12H Check with primary doctor 07/16/22 [History Last Taken 07/30/22] linezolid 600 mg tablet 600 mg PO BID 10 days #0 tabs 07/20/22 [Rx Last Taken 07/30/22] Allergy/AdvReac Type Severity Reaction Status Date / Time red dye Allergy PT UNSURE Verified 07/31/22 07:24 OF REACTION Family History Mother Hypertension Father Diabetes Surgical History Kidney transplant recipient Renal transplant recipient S/P arteriovenous (AV) fistula creation Social History household members: none housing: [facility] Smoking Status: Never smoker second hand exposure: No alcohol intake: never substance use type: does not use caffeine: No ROS ROS ED ROS Narrative Fever patient is a very poor informant. So review of systems is very limited. He denies chest pain, shortness of breath, cough, abdominal pain, dysuria but the accuracy of his statements is very questionable. Review of Systems ROS Unobtainable: due to mental status Constitutional Constitutional ED: Reports fever(s) Eyes Eyes: Denies blurry vision ENT ENT ED: Denies ear pain Cardiovascular Cardiovascular: Denies chest pain Respiratory/Chest Respiratory/Chest: Denies cough Gastrointestinal Gastrointestinal: Denies abdominal pain Genitourinary Genitourinary ED: Denies dysuria or hematuria Integumentary Denies abscess Neurologic Neurologic: Denies headache(s) Psychiatric Psychiatric: Denies anxiety or depression Endocrine Endocrinology: Denies cold intolerance Hematologic/Lymphatic Hematologic/Lymphatic: Reports none Allergic/Immunologic Allergic/Immunologic ED: Denies mouth swelling EXAM Physical Exam Narrative Exam Narrative: 57-year-old male brought in by squad. Vital signs are stable. His current t emperature is 98.9 orally. He does not look septic or toxic. H EENT exam unremarkable other than dry mucous membranes. Neck nontender. No lymphadenopathy. No meningismus. Lungs clear to auscultation bilaterally. Heart regular rhythm rate about 100 no murmur appreciated. Chest wall nontender. Abdomen soft nontender. Moving all 4 extremities. Dialysis fistula in his right forearm with a good thrill. Skin no rashes. No petechiae or purpura. No wounds. Back nontender. Neurologically he is awake. He is hard of hearing. He either does not hear or does not comprehend questions appro priately and is given inappropriate answers. He is moving all 4 extremities. Const Vital Signs: 07/31/22 07:20 03/31/23 07:23 07/31/22 07:25 Temperature 98.9 F 98.9 F Temperature Source Oral Oral Pulse Rate 96 96 Respiratory Rate 14 14 Respiratory Effort Normal Non-Labored Respiratory Pattern Normal Blood Pressure 147/95 H 147/95 H Blood Pressure Mean 112 112 Pulse Ox 94 Oxygen Delivery Method Room Air 07/31/22 07:57 07/31/22 08:05 07/31/22 10:16 Temperature 99.2 F H Temperature Source Temporal Pulse Rate 89 Respiratory Rate 13 Respiratory Effort Respiratory Pattern Blood Pressure 145/86 H Blood Pressure Mean 105 Pulse Ox 93 94 Oxygen Delivery Method Room Air Room Air 07/31/22 12:08 Temperature Temperature Source Pulse Rate 91 Respiratory Rate 16 Respiratory Effort Respiratory Pattern Blood Pressure 133/86 H Blood Pressure Mean 101 Pulse Ox 94 Oxygen Delivery Method Room Air Positive well nourished and well developed; Negative for obese, cachectic, contractures or unkempt General Appearance ED: well developed and NAD; Negative for unkempt, cachectic, contractures, cyanotic, diaphoretic or pallor Nutritional Appearance: Negative for cachectic or obese HEENT Reports dry mucous membranes; Denies moist mucous membranes Negative for trauma or tenderness Mouth ED: Yes dry mucous membranes Mouth: dry mucous membranes Eyes PERRL and EOMs intact bilaterally General Eye ED: Negative for pale conjunctiva or scleral icterus Neck no lymphadenopathy, supple and no JVD General: Negative for tenderness Lymph Lymphatic: Negative for other Chest Wall inspection of chest normal and palpation of chest normal Chest: Negative for other Resp normal respiratory effort and clear to auscultation bilaterally Effort and Inspection: Negative for retractions Cardio regular rate, regular rhythm, S1 normal heart sound, S2 normal heart sound and no murmurs Palpation: Negative for palpable S3 Rate: Negative for bradycardia Rhythm: Negative for abnormal rhythm GI normal to inspection, nondistended, normoactive bowel sounds, non-tender, non- distended and no masses Inspection: Negative for abdominal distention Auscultation: normoactive bowel sounds Palpation: soft; Negative for tender or guarding Back/Spine no CVA tenderness General Back: Negative for CVA tenderness Cervical Spine: Negative for cervical spine tenderness Thoracic Spine / Upper Back: Negative for thoracic spinal tenderness or paraspinal muscle tenderness Lumbar Spine / Lower Back: Negative for lumbar spinal tenderness Extremity normal to inspection General Extremety ED: Negative for edema or tenderness General Extremity: Negative for edema Neuro No oriented x3 Neuro Narrative: Patient is awake and alert. Answering questions but his answers are not necessarily accurate. He does know he is in the hospital. He is moving all 4 extremities. Sensorium / Orientation: alert; Negative for lethargic or stuporous Motor Exam: strength 5/5 throughout Psych mental status grossly normal Appearance: Negative for unkempt Attitude: No agitated Mood & Affect: Negative for depressed, anxious or tearful Skin no rashes or lesions noted and no wounds General Skin Exam: Negative for jaundice or pallor Lesions: No lesion noted Rashes: No rashes noted Trauma: Negative for abrasion Wounds: Negative for wounds noted MDM MDM MDM Narrative Medical decision making narrative: 57-year-old male from [facility] with extensive past medical history including renal transplant. Sent in due to fever. Will undergo a septic work- up. Received a liter normal saline. Clinically at this time he does not have a fever here but he feels warm to the touch. He be given Tylenol. Repeat exam at 11:30 and 1:40 pm patient is doing well. He has not developed any significant fever here. I went over his test results with him. Basically his baseline labs. There is no significant change. He has a chronic renal insufficiency. He is a chronic anemia. He has a chronic thrombocytopenia. We have no obvious signs of infection his urine is unremarkable. His chest x-ray is chronic changes on it. His lactic acid was normal. [facility] I will speak with them prior to discharge. I did attempt to call his mother, Najma, who I spoke to earlier and she did not milk pickup truck driver her phone and does not have voicemail set up on it. Patient is doing well. He is sitting up using the bedside commode. His exam is unchanged. Abdomen is soft and nontender. Lab Data Attestation: I reviewed the patient's lab results. Lab results narrative: CBC shows a white count of 2.5. H&H of 10.7 and 32.9. Platelets are low at 57,000. PT/INR 15.1. PTT 33. Electrolytes show a gap of 4 BUN of 24 creatinine 1.46 he has chronic since he. Liver enzymes are unremarkable. Lactic acid is 1.9.. Urinalysis is negative. No white or red cells no bacteria nor traits. Chest x-ray shows chronic changes seen on prior x-rays. Labs: Laboratory Results - last 24 hr 07/31/22 07/31/22 07/31/22 07:25 07:25 07:25 WBC 2.5 L RBC 3.49 L Hgb 10.7 L Hct 32.9 L MCV 94.3 H MCH 30.7 MCHC 32.5 RDW Std Deviation 46.8 H RDW Coeff of Anil 13.6 Plt Count 57 L MPV 10.9 Immature Gran % (Auto) 0.400 Neut % (Auto) 62.0 Lymph % (Auto) 20.6 [place] % (Auto) 10.1 H Eos % (Auto) 5.7 H Baso % (Auto) 1.2 H Absolute Neuts (auto) 1.5 L Absolute Lymphs (auto) 0.51 L Nucleated RBC % 0 Diff Path Review May foll Platelet Estimate MKD DEC PT 15.8 H INR 1.3 APTT 33.2 Sodium 142 Potassium 4.1 Chloride 114 H Carbon Dioxide 24.0 Anion Gap 4 L BUN 24 H Creatinine 1.46 H Estim Creat Clear Calc 62.42 Est GFR (MDRD) Af Amer 64 Est GFR (MDRD) Non-Af 53 L BUN/Creatinine Ratio 16.4 Glucose 95 Lactic Acid Calcium 8.3 L Total Bilirubin 1.50 H AST 34 ALT 34 Alkaline Phosphatase 76 Ammonia Total Protein 6.4 Albumin 3.1 L Globulin 3.3 Albumin/Globulin Ratio 0.9 Urine Color Urine Clarity Urine pH Ur Specific [place] Urine Protein Urine Glucose (UA) Urine Ketones Urine Occult Blood Urine Nitrite Urine Bilirubin Urine Urobilinogen Ur Leukocyte Esterase Urine RBC Urine WBC Ur Squamous Epith Cells Urine Bacteria Urine Mucus 07/31/22 07/31/22 07/31/22 07:25 08:16 08:25 WBC RBC Hgb Hct MCV MCH MCHC RDW Std Deviation RDW Coeff of Anil Plt Count MPV Immature Gran % (Auto) Neut % (Auto) Lymph % (Auto) [place] % (Auto) Eos % (Auto) Baso % (Auto) Absolute Neuts (auto) Absolute Lymphs (auto) Nucleated RBC % Diff Path Review Platelet Estimate PT INR APTT Sodium Potassium Chloride Carbon Dioxide Anion Gap BUN Creatinine Estim Creat Clear Calc Est GFR (MDRD) Af Amer Est GFR (MDRD) Non-Af BUN/Creatinine Ratio Glucose Lactic Acid 1.9 Calcium Total Bilirubin AST ALT Alkaline Phosphatase Ammonia 28.0 Total Protein Albumin Globulin Albumin/Globulin Ratio Urine Color Yellow Urine Clarity Clear Urine pH 6.0 Ur Specific [place] 1.020 Urine Protein 30 H Urine Glucose (UA) Normal Urine Ketones Negative Urine Occult Blood 50 H Urine Nitrite Negative Urine Bilirubin Negative Urine Urobilinogen Normal Ur Leukocyte Esterase 25 H Urine RBC 0-5 SEEN Urine WBC 0-5 SEEN Ur Squamous Epith Cells 0 SEEN Urine Bacteria 0 SEEN Urine Mucus 0 SEEN Radiography Chest X-Ray - ED: 1 View, Read by ED Physician, Read by Radiologist, Normal, Heart, Lungs (Chronic changes on his lungs seen on prior chest x-rays.), Mediastinum, Bony Structures, No Acute Disease and Chronic Changes Diagnostic Testing: Clinical Impression(s) from Imaging Studies Chest X-Ray 07/31/22 08:05 IMPRESSION: Mild cardiomegaly with mild pulmonary vascular congestion. Bibasilar opacities, concerning for pneumonia. Electronically Signed: Keli Servin MD at 8:32 EDT Reading Location ID and State: [facility] / [place] Tel , Service support , Discharge Plan Triage Chief Complaint: Fever ED Provider: Dillon Harrison Dx/Rx/DC Orders Clinical Impression: Fever, History of encephalopathy, History of renal insufficiency Prescriptions: No Action mycophenolate mofetil 500 MG tablet 500 mg PO 0900,2100 Label Comments: anti rejection multivitamin Tablet 1 tab PO DAILY acetaminophen [Tylenol] 325 mg Tablet 650 mg PO Q6H PRN PRN (Reason: Pain 1-10 Or Fever>100.7) Qty: 0 0RF lactulose 20 gram/30 mL solution 30 ml PO Q4 tacrolimus [Prograf] 1 mg Capsule 1.5 mg PO Q12H sodium bicarbonate 650 mg tablet 1,300 mg PO TID Xifaxan 550 mg tablet 550 mg PO BID linezolid 600 mg Tablet 600 mg PO BID 10 Days Qty: 0 0RF Primary Care Provider: Mike Bella Referrals: Mike Bella MD [Primary Care Provider] - 3-5 Days if not improving Activity Restrictions/Additional Instructions: Labs, chest x-ray, urinalysis and ammonia level were unremarkable. Labs were all consistent with his baseline labs. No acute signs of infection on either of the urine or the chest x-ray. Follow-up with the medical coding manager of your facility or his primary care physician. Disposition Disposition: Home, Self Care
[2022-07-31 07:55] LABS: Absolute Lymphocyte Count 0.51 X10^3/uL (0.83-4.51); Absolute Neutrophil Count 1.5 X10^3/uL (2.0-7.7); Basophil# 0.03 X10^3/uL; Basophil% 1.2 % (0-1); Eosinophil# 0.14 X10^3/uL; Eosinophils% 5.7 % (0-5); Hematocrit 32.9 % (40-54); Hemoglobin 10.7 g/dL (13.0-16.5); Lymphocyte # 0.51 X10^3/ul (0.83-4.51); Lymphocyte % 20.6 % (19-41); Mean Corp Hgb Conc 32.5 g/dL (32-36); Mean Corpuscular Hgb 30.7 pg (27.0-32.0); Mean Corpuscular Volume 94.3 fL (80-94); Mean Platelet Vol. 10.9 fl (6.2-12.0); Monocyte# 0.25 X10^3/uL; Monocyte% 10.1 % (0-10); NRBC Flagged by Analyzer 0 % (0-5); Neutrophil # 1.53 X10^3/uL (2.7-7.7); POSITIVE COUNT YES; POSITIVE DIFFERENTIAL YES; Platelet Count 57 K/mm3 (150-450); RBC Distribution Width CV 13.6 % (11.6-14.6); RBC Distribution Width SD 46.8 fl (35.1-43.9); Red Blood Count 3.49 M/mm3 (4.6-6.2); White Blood Count 2.5 K/mm3 (4.4-11.0)
[2022-07-31 07:57] LABS: Differential Indicated SCAN CRITERIA MET
[2022-07-31] MEDS: Acetaminophen 325 MG Tablet 650 MG PO (08:05)
[2022-07-31] MEDS: 0.9% Normal Saline 1,000 ML 999 ML IV ×2 (08:05→09:27)
--- NOTE | 2022-07-31 08:05 | RAD_ITS ---
HISTORY: FEVER. TECHNIQUE: XR Chest 1 View. COMPARISON: 06/13/2022. FINDINGS: CARDIOMEDIASTINAL BORDERS: Cardiac silhouette mildly enlarged. Mediastinal contour unremarkable. LUNGS: Pulmonary vascular congestion and mild bibasilar opacities. PLEURA: No pleural effusion or pneumothorax seen. OSSEOUS STRUCTURES: Unremarkable. RAD/Chest 1 View (Portable) IMPRESSION: Mild cardiomegaly with mild pulmonary vascular congestion. Bibasilar opacities, concerning for pneumonia. Electronically Signed: Keli Servin MD at 8:32 EDT ,
[2022-07-31 08:07] LABS: ALB/GLOB Ratio 0.9 RATIO (0.9-2.4); AST(SGOT) 34 U/L (15-37); Alanine Aminotransfer ALT/SGPT 34 U/L (16-61); Albumin, Serum 3.1 g/dL (3.2-5.0); Alkaline Phosphatase 76 U/L (45-117); Anion Gap 4 (5-15); BUN 24 mg/dL (7-18); BUN/Creat Ratio 16.4 RATIO (10-20); Calcium,Total 8.3 mg/dL (8.5-10.1); Chloride 114 mmol/L (98-107); Creatinine, Serum 1.46 mg/dL (0.70-1.30); EST Glomerular Filtration Rate 53 mL/min (>60); Est Glom Filt Rate - Afr Amer 64 mL/min (>60); Estimated Creatinine Clearance 62.42 ml/min; Globulin 3.3 g/dL (2.2-4.2); Glucose 95 mg/dL (74-106); Lactic Acid 1.9 mmol/L (0.4-1.9); Potassium 4.1 mmol/L (3.5-5.1); Protein, Total 6.4 g/dL (6.4-8.2); Sodium Level 142 mmol/L (136-145)
[2022-07-31 08:18] LABS: International Normalized Ratio 1.3; Partial Thromboplast Time 33.2 Seconds (24.1-36.2); Platelet Estimate MKD DEC (ADEQ); Prothrombin Time (Protime)PT. 15.8 SECONDS (11.7-14.9)
[2022-07-31 08:21] LABS: Bacteria 0 SEEN /hpf (None Seen); Mucous, Urine 0 SEEN /hpf (<or=2+); Squamous Epithelial Cells - UA 0 SEEN /hpf (0-5)
[2022-07-31 08:25] LABS: Color, Urine Yellow (Yellow); Glucose, Dipstick Normal (Normal); Ketone-Dipstick Negative (Negative); Leukocyte Esterase-Dipstick 25 /ul (Negative); Nitrite-Dipstick Negative (Negative); Occult Blood-Urine 50 /ul (Negative); Protein-Dipstick 30 mg/dl (Negative); Urine Bilirubin Dipstick Negative (Negative); Urine Clarity Clear (Clear); Urine Urobilinogen Normal (Normal)
[2022-07-31 08:34] LABS: Red Blood Cells-Urine 0-5 SEEN /hpf (0-5); White Blood Cells 0-5 SEEN /hpf (0-5)
--- NOTE | 2022-07-31 08:45 | ED.RN ---
per cely at the [facility], pt takes a dose of prograf 1.5mg at 0900.
[2022-07-31] MEDS: Tacrolimus 0.5 MG Capsule 1.5 MG PO (09:27)
[2022-07-31] MEDS: Mycophenolate Mofetil 250 MG Capsule 500 MG PO (10:17)
[2022-08-03 10:07] LABS: Pathologist Review Reviewed
== END 2022-07-31 14:24 | disposition home or self-care (01) ==
PROVIDERS: Emergency Provider Emergency Medicine; PCP Family Medicine; Visit Provider Emergency Medicine
DX: R50.9 Fever, unspecified (principal); G93.40 Encephalopathy, unspecified; Z94.0 Kidney transplant status; Z79.899 Other long term (current) drug therapy
CPT/HCPCS: 71045; 80053; 81001; 82140; 83605; 85025; 85610; 85730; 87040; 87077; 87086; 87088; 87186; 87428; 93005; 96360; 96361; 99285; J7030; P9612; A4216

== ENCOUNTER 2022-08-06 20:38 | Emergency (ER) | payer MEDICARE, MEDICAID, SELFPAY ==
[2022-08-06 20:39] VITALS: BP 155/99; PULSE 98; RESP 21; TEMP 36.8; O2SAT 98; BMI 23.6
[2022-08-06 20:43] VITALS: BP 155/99; PULSE 96; PULSE 98; RESP 15; RESP 20; TEMP 36.8; O2SAT 98
--- NOTE | 2022-08-06 20:53 | ED.RN ---
THIS RN CALLED THE AVEN[facility] AT 2053. PT SISTER ASKED THAT THIS RN ENSURE PT HAD HIS TRANSPLANT MEDICATION OR ANTI REJECTION MEDICATION (TACROLIMUS). THIS RN CALLED JASMEET LEBRON. JASMEET LEBRON STATED THE PT GOT THE MEDICATION AT 0800 AM AND 1700 PM. THIS RN LET PT AND PT SISTER KNOW. JASMEET LEBRON FROM THE AVEN[facility] TO FAX MAR TO [facility].
--- NOTE | 2022-08-06 21:11 | CT_ITS ---
INDICATION: diffuse abdominal pain A radiation dose optimization technique was used for this scan. COMPARISON: Abdominal CT 07/16/2022.. FINDINGS: Noncontrast serial CT axial images through the abdomen and pelvis with coronal and sagittal reformatted series. PANCREAS: No peripancreatic fat stranding. BOWEL/MESENTERY: Diffuse gaseous distention without definite dilated bowel loops. No significant free fluid. No free air. GALLBLADDER: Dependent cholelithiasis with suggestion of pericholecystic fat stranding. LIVER/STOMACH: No obvious abnormality. URINARY COLLECTING SYSTEM/ KIDNEYS: Markedly atrophic bilateral [place] kidneys containing multiple hypoechoic lesions, the largest of which measure simple fluid attenuation, likely cysts. Right pelvic transplant kidney without obvious abnormality. No obstructing ureteral calculus. Enlarged prostate. Distended urinary bladder with circumferential urinary bladder wall thickening, suggesting bladder outlet obstruction. LUNG BASES: Left lung base hazy airspace disease. APPENDIX: Normal caliber gas containing appendix. AORTA/GREAT V[place]SELS: Upper abdominal and retroperitoneal varices. BONES: Unremarkable for age. CT/Abdomen/Pelvis without Cont IMPRESSION: Diffuse gaseous distention without definite dilated bowel loops consistent with mild ileus formation. Enlarged prostate. Distended urinary bladder with circumferential urinary bladder wall thickening, suggesting bladder outlet obstruction in this renal transplant patient. Dependent cholelithiasis with suggestion of pericholecystic fat stranding concerning for acute cholecystitis. Left lung base hazy airspace disease, to include pneumonia, only partially imaged. Recommend follow-up to resolution. Upper abdominal and retroperitoneal varices. Electronically Signed: Clark Iraheta MD at 23:03 EDT ,
--- NOTE | 2022-08-06 21:12 | ED.VIS.GI ---
HPI HPI - GI History of Present Illness Chief Complaint: Complaint Informant: patient and family (sister) Abdominal Pain/Flank Pain Onset: Today (Last couple hours) Context: Gradual Onset Narrative Narrative: Patient presenting with abdominal and chest and bilateral foot pain. He has a history of encephalopathy, he is at baseline mental status according to the sister, and she agrees he is very difficult to evaluate on a day-to-day basis because of this. When asked if he has been having chest discomfort, the patient states it is my belly. He is holding his abdomen in the periumbilical area saying that it hurts and that it started after dinner tonight. He presents here around 2100. He is not able to tell either 1 of us if he has been nauseated, there has been no known vomiting. He does not seem to complain of chest pain right now, but he does have an occasional cough that he did in the time that I saw him, he did not produce any sputum or have any dyspnea. Apparently at the [facility] where he is a resident, he had a low-grade temperature although he does not have a fever right now. The sister wants to make sure that I know he has a history of urine infections, he self caths, and he has a history of a kidney transplant. Furthermore she states she is concerned that he may not be getting his antirejection medications exactly every 12 hours. [facility] Medical History Anemia in chronic illness Bladder dysfunction Bronchitis Chronic kidney disease, stage 3b CKD (chronic kidney disease), stage III Congenital nystagmus DVT (deep venous thrombosis) History of DVT (deep vein thrombosis) History of encephalopathy History of pulmonary embolism HTN (hypertension) Immunosuppressed status Mild intellectual disability Neurogenic bladder disorder Neutropenia Pancytopenia Pulmonary embolism Severe protein-calorie malnutrition Urinary retention Vocal cord dysfunction Home Medications mycophenolate mofetil 500 mg tablet 500 mg PO 0900,2100 Anti-Rejection 07/14/16 [History Last Taken 07/30/22] multivitamin 1 tab PO DAILY supplement 02/13/22 [History Last Taken 07/30/22] acetaminophen 325 mg tablet (Tylenol) 650 mg PO Q6H PRN PRN Pain 1-10 Or Fever>100.7 #0 tabs 04/21/22 [Rx Last Taken 06/02/22] lactulose 20 gram/30 mL oral solution 30 ml PO Q4 06/13/22 [History Last Taken 07/31/22] rifaximin 550 mg tablet (Xifaxan) 550 mg PO BID Check with primary doctor 07/16/22 [History Last Taken 07/30/22] sodium bicarbonate 650 mg tablet 1,300 mg PO TID Check with primary doctor 07/16/22 [History Last Taken 07/31/22] tacrolimus 1 mg capsule, immediate-release (Prograf) 1.5 mg PO Q12H Check with primary doctor 07/16/22 [History Last Taken 07/30/22] linezolid 600 mg tablet 600 mg PO BID 10 days #0 tabs 07/20/22 [Rx Last Taken 07/30/22] levofloxacin 750 mg tablet 750 mg PO DAILY #5 tabs 08/07/22 [Rx Last Taken Unknown] Allergy/AdvReac Type Severity Reaction Status Date / Time red dye Allergy PT UNSURE Verified 08/06/22 20:44 OF REACTION Family History Mother Hypertension Father Diabetes Surgical History Kidney transplant recipient Renal transplant recipient S/P arteriovenous (AV) fistula creation Social History household members: none housing: correction Smoking Status: Never smoker second hand exposure: No alcohol intake: never substance use type: does not use caffeine: No ROS ROS ED Review of Systems ROS Unobtainable: due to mental condition Constitutional Constitutional ED: Reports as per HPI ENT ENT ED: Denies ear pain or sore throat Cardiovascular Cardiovascular: Reports chest pain Respiratory/Chest Respiratory/Chest: Reports cough Gastrointestinal Gastrointestinal: Reports abdominal pain; Denies vomiting Genitourinary Genitourinary ED: Denies hematuria Musculoskeletal Musculoskeletal: Reports as per HPI and extremity pain Neurologic Neurologic: Denies headache(s) EXAM Physical Exam Const Vital Signs: 08/06/22 20:39 08/06/22 20:43 08/06/22 20:43 Temperature 98.3 F 98.3 F Temperature Source Oral Oral Pulse Rate 98 96 98 Respiratory Rate 21 H 20 H 15 Respiratory Effort Respiratory Pattern Blood Pressure 155/99 H 155/99 H 155/99 H Blood Pressure Mean 117 117 117 Pulse Ox 98 98 98 Oxygen Delivery Method Room Air Room Air Room Air 08/06/22 20:48 08/06/22 22:48 08/06/22 22:48 Temperature 98.4 F Temperature Source Oral Pulse Rate 91 91 Respiratory Rate 17 14 Respiratory Effort Normal Labored Respiratory Pattern Normal Blood Pressure 135/81 H 135/81 H Blood Pressure Mean 99 99 Pulse Ox 96 97 Oxygen Delivery Method Room Air Room Air 08/06/22 23:16 08/07/22 00:00 Temperature 98.3 F Temperature Source Oral Pulse Rate 88 88 Respiratory Rate 14 18 Respiratory Effort Respiratory Pattern Blood Pressure 136/82 H 136/82 H Blood Pressure Mean 100 100 Pulse Ox 94 95 Oxygen Delivery Method Room Air Room Air Positive well nourished and well developed General Appearance ED: well developed and NAD HEENT Reports moist mucous membranes normocephalic and atraumatic Eyes PERRL and EOMs intact bilaterally Eyes Narrative: Nonfatigable horizontal nystagmus Neck full ROM and supple Resp normal respiratory effort and clear to auscultation bilaterally Cardio regular rate, regular rhythm and no murmurs GI GI Narrative: Distended, soft. Tender diffusely including but not exclusive to the renal transplant in the right lower quadrant; seems much more tender throughout the upper abdomen with patient wincing there. No guarding or rebound tenderness. Auscultation: normoactive bowel sounds Palpation: soft Back/Spine no CVA tenderness General Back: other FROM Extremity normal to inspection General Extremety ED: Negative for edema, pulses abnormal or tenderness General Extremity: Negative for edema or pulses abnormal Neuro CN's II-XII intact bilaterally Neuro Narrative: Disoriented, difficulty answering questions partially due to hard of hearing and encephalopathy, at baseline according to family, moving all 4 extremities. Sensorium / Orientation: awake and alert Skin no rashes or lesions noted and no wounds MDM MDM MDM Narrative Medical decision making narrative: Patient having no more chest discomfort at this time, his EKG is unremarkable, troponin within normal limits, he complained of no more chest discomfort throughout his ED visit. He was really focusing on his abdomen where he is diffusely tender. This is less likely acute transplant rejection, that is in the differential diagnosis certainly in a patient with a transplanted kidney was having abdominal pain, but he is more tender in other areas then he is over the right lower quadrant transplanted kidney. His urine, however, does appear to be infected with positive nitrite, leukocyte esterase, and pyuria, this was sent for a culture, catheterized specimen, and he was treated empirically with Rocephin. The chest x-ray 2 views of my interpretation showed no definite acute consolidation, chronic changes are noted, radiology read it as possible early infiltrate, I reviewed their interpretation. The Rocephin we are using to treat his UTI should cover that, if true/acute. Given his abdominal pain, we sent him for CT of the abdomen/pelvis and I also obtained blood counts, lactic acid which was within normal limits. He does not have a leukocytosis, his white blood count is only 3.7, there is no leftward shift and actually a predilection of monocytes. I reviewed the CT images, as well as the interpretation and agree with the radiologist interpretation. It is concerning for gallbladder acute problem, in addition to bladder outlet obstruction, the patient already self caths daily, and possible pneumonia in the left lung base as noted on the x-ray. His total bilirubin is slightly elevated, 1.2. I reviewed prior readings, he usually is higher than this, he has been lower, he has also been over 3. At this time the gallbladder ultrasound results are still pending. If it shows signs of acute cholecystitis such as pericholecystic fluid in addition to the chronic changes he has had in the past, at that point I would recommend admitting him for further evaluation, but if it shows the chronic abnormalities that he had before on his MRCP, I think it would be reasonable to discharge him back to the correction on Levaquin; the last urine culture he had showed Klebsiella species and it was sensitive to ciprofloxacin and Levaquin, as this would also cover the pneumonia in his left lower lobe, given that he is not hypoxic I do not think he needs to be admitted to the hospital for these issues at this time. Ultrasound results to be reviewed by the oncoming emergency physician. History & Record Review Additional record(s) reviewed:: Prior labs (And imaging including MRCP 04/2022) Lab Data Attestation: I reviewed the patient's lab results. Labs: Laboratory Results - last 24 hr 08/06/22 08/06/22 08/06/22 21:27 21:27 21:27 WBC 3.7 L RBC 3.19 L Hgb 10.0 L Hct 29.2 L MCV 91.5 MCH 31.3 MCHC 34.2 RDW Std Deviation 45.8 H RDW Coeff of Anil 13.6 Plt Count 85 L MPV 10.5 Immature Gran % (Auto) 1.100 H Neut % (Auto) 47.0 Lymph % (Auto) 24.1 Lake % (Auto) 20.5 H Eos % (Auto) 6.2 H Baso % (Auto) 1.1 H Absolute Neuts (auto) 1.7 L Absolute Lymphs (auto) 0.89 Nucleated RBC % 0 Differential Comment SCANNED Sodium 142 Potassium 3.7 Chloride 113 H Carbon Dioxide 22.0 Anion Gap 7 BUN 16 Creatinine 1.53 H Estim Creat Clear Calc 59.88 Est GFR (MDRD) Af Amer 61 Est GFR (MDRD) Non-Af 50 L BUN/Creatinine Ratio 10.5 Glucose 100 Lactic Acid 1.5 Calcium 7.9 L Total Bilirubin 1.20 H AST 43 H ALT 42 Alkaline Phosphatase 81 Troponin I High Sens 22 Total Protein 6.5 Albumin 3.2 Globulin 3.3 Albumin/Globulin Ratio 1.0 Lipase 220 Urine Color Urine Clarity Urine pH Ur Specific [place] Urine Protein Urine Glucose (UA) Urine Ketones Urine Occult Blood Urine Nitrite Urine Bilirubin Urine Urobilinogen Ur Leukocyte Esterase Urine RBC Urine WBC Ur Squamous Epith Cells Urine Bacteria Urine Mucus 08/06/22 22:08 WBC RBC Hgb Hct MCV MCH MCHC RDW Std Deviation RDW Coeff of Anil Plt Count MPV Immature Gran % (Auto) Neut % (Auto) Lymph % (Auto) Lake % (Auto) Eos % (Auto) Baso % (Auto) Absolute Neuts (auto) Absolute Lymphs (auto) Nucleated RBC % Differential Comment Sodium Potassium Chloride Carbon Dioxide Anion Gap BUN Creatinine Estim Creat Clear Calc Est GFR (MDRD) Af Amer Est GFR (MDRD) Non-Af BUN/Creatinine Ratio Glucose Lactic Acid Calcium Total Bilirubin AST ALT Alkaline Phosphatase Troponin I High Sens Total Protein Albumin Globulin Albumin/Globulin Ratio Lipase Urine Color Yellow Urine Clarity Sl. Cloudy Urine pH 6.0 Ur Specific [place] 1.010 Urine Protein 30 H Urine Glucose (UA) Normal Urine Ketones Negative Urine Occult Blood 250 H Urine Nitrite Positive H Urine Bilirubin Negative Urine Urobilinogen Normal Ur Leukocyte Esterase 500 H Urine RBC 10-25 SEEN Urine WBC 25-50 SEEN Ur Squamous Epith Cells 0-5 SEEN Urine Bacteria 0 SEEN Urine Mucus 0 SEEN Radiography Diagnostic Testing: Clinical Impression(s) from Imaging Studies Abdomen/Pelvis CT 08/06/22 21:11 IMPRESSION: Diffuse gaseous distention without definite dilated bowel loops consistent with mild ileus formation. Enlarged prostate. Distended urinary bladder with circumferential urinary bladder wall thickening, suggesting bladder outlet obstruction in this renal transplant patient. Dependent cholelithiasis with suggestion of pericholecystic fat stranding concerning for acute cholecystitis. Left lung base hazy airspace disease, to include pneumonia, only partially imaged. Recommend follow-up to resolution. Upper abdominal and retroperitoneal varices. Electronically Signed: Clark Iraheta MD at 23:03 EDT , Chest X-Ray 08/06/22 22:22 IMPRESSION: Streaky left lower lung atelectasis versus other airspace disease, to include developing pneumonia. Recommend follow-up to resolution. Electronically Signed: Clark Iraheta MD at 22:46 EDT , Rhythm Strip Rhythm Strip: Sinus Rhythm Rate: 96 Ectopy: None EKG Initial EKG: Attestation: I personally reviewed and interpreted this EKG as follows: Interpretation: Sinus Rhythm and No Acute Injury Pattern Comments: Borderline prolonged QTc otherwise within normal limits/normal EKG Discharge Plan Triage Chief Complaint: Complaint ED Provider: Miah Celis Dx/Rx/DC Orders Clinical Impression: Acute UTI, Diffuse abdominal pain, Left lower lobe pneumonia Instructions: Urinary Tract Infections in Men Prescriptions: New levofloxacin 750 mg tablet 750 mg PO DAILY Qty: 5 0RF No Action mycophenolate mofetil 500 MG tablet 500 mg PO 0900,2100 Label Comments: anti rejection multivitamin Tablet 1 tab PO DAILY acetaminophen [Tylenol] 325 mg Tablet 650 mg PO Q6H PRN PRN (Reason: Pain 1-10 Or Fever>100.7) Qty: 0 0RF lactulose 20 gram/30 mL solution 30 ml PO Q4 tacrolimus [Prograf] 1 mg Capsule 1.5 mg PO Q12H sodium bicarbonate 650 mg tablet 1,300 mg PO TID Xifaxan 550 mg tablet 550 mg PO BID linezolid 600 mg Tablet 600 mg PO BID 10 Days Qty: 0 0RF Primary Care Provider: Mike Bella Referrals: Mike Bella MD [Primary Care Provider] - 1-2 Days if not improving Activity Restrictions/Additional Instructions: Urine culture sent, given Rocephin 1 g in ER, may start Levaquin whenever it is available Disposition Disposition: Home, Self Care
[2022-08-06 21:37] LABS: Absolute Lymphocyte Count 0.89 X10^3/uL (0.83-4.51); Absolute Neutrophil Count 1.7 X10^3/uL (2.0-7.7); Basophil# 0.04 X10^3/uL; Basophil% 1.1 % (0-1); Eosinophil# 0.23 X10^3/uL; Eosinophils% 6.2 % (0-5); Hematocrit 29.2 % (40-54); Lymphocyte # 0.89 X10^3/ul (0.83-4.51); Lymphocyte % 24.1 % (19-41); Mean Corp Hgb Conc 34.2 g/dL (32-36); Mean Corpuscular Hgb 31.3 pg (27.0-32.0); Mean Corpuscular Volume 91.5 fL (80-94); Mean Platelet Vol. 10.5 fl (6.2-12.0); Monocyte# 0.76 X10^3/uL; Monocyte% 20.5 % (0-10); NRBC Flagged by Analyzer 0 % (0-5); Neutrophil # 1.74 X10^3/uL (2.7-7.7); POSITIVE COUNT YES; Platelet Count 85 K/mm3 (150-450); RBC Distribution Width CV 13.6 % (11.6-14.6); RBC Distribution Width SD 45.8 fl (35.1-43.9); Red Blood Count 3.19 M/mm3 (4.6-6.2); White Blood Count 3.7 K/mm3 (4.4-11.0)
[2022-08-06 21:52] LABS: Differential Indicated SCAN CRITERIA MET
[2022-08-06 21:56] LABS: Lactic Acid 1.5 mmol/L (0.4-1.9)
[2022-08-06 22:00] LABS: AST(SGOT) 43 U/L (15-37); Alanine Aminotransfer ALT/SGPT 42 U/L (16-61); Albumin, Serum 3.2 g/dL (3.2-5.0); Alkaline Phosphatase 81 U/L (45-117); Anion Gap 7 (5-15); BUN 16 mg/dL (7-18); BUN/Creat Ratio 10.5 RATIO (10-20); Calcium,Total 7.9 mg/dL (8.5-10.1); Chloride 113 mmol/L (98-107); Creatinine, Serum 1.53 mg/dL (0.70-1.30); EST Glomerular Filtration Rate 50 mL/min (>60); Est Glom Filt Rate - Afr Amer 61 mL/min (>60); Estimated Creatinine Clearance 59.88 ml/min; Globulin 3.3 g/dL (2.2-4.2); Glucose 100 mg/dL (74-106); Lipase 220 U/L (73-393); Potassium 3.7 mmol/L (3.5-5.1); Protein, Total 6.5 g/dL (6.4-8.2); Sodium Level 142 mmol/L (136-145); Troponin-I HS 22 pg/mL (3.0-78.0)
[2022-08-06 22:10] LABS: Differential Comment SCANNED
[2022-08-06 22:14] LABS: Bacteria 0 SEEN /hpf (None Seen); Color, Urine Yellow (Yellow); Glucose, Dipstick Normal (Normal); Ketone-Dipstick Negative (Negative); Leukocyte Esterase-Dipstick 500 /ul (Negative); Mucous, Urine 0 SEEN /hpf (<or=2+); Nitrite-Dipstick Positive (Negative); Occult Blood-Urine 250 /ul (Negative); Protein-Dipstick 30 mg/dl (Negative); Urine Bilirubin Dipstick Negative (Negative); Urine Clarity Sl. Cloudy (Clear); Urine Urobilinogen Normal (Normal)
--- NOTE | 2022-08-06 22:22 | RAD_ITS ---
INDICATION: cough, chest pain EXAMINATION/TECHNIQUE: X-RAY - XR Chest 2 Views COMPARISON: Chest radiograph 07/31/2022. Findings: Frontal and lateral views of the chest. LUNG PARENCHYMA: Streaky left lower lung opacities consistent with airspace disease. PLEURA: No pleural effusion. No pneumothorax. HEART/GREAT VESSELS: Cardiomediastinal silhouette is unremarkable. BONES: Osseous structures are unremarkable for age. RAD/Chest PA and Lateral IMPRESSION: Streaky left lower lung atelectasis versus other airspace disease, to include developing pneumonia. Recommend follow-up to resolution. Electronically Signed: Clark Iraheta MD at 22:46 EDT ,
[2022-08-06 22:25] LABS: Red Blood Cells-Urine 10-25 SEEN /hpf (0-5); Squamous Epithelial Cells - UA 0-5 SEEN /hpf (0-5); White Blood Cells 25-50 SEEN /hpf (0-5)
[2022-08-06 22:48] VITALS: BP 135/81; PULSE 91; RESP 14; RESP 17; TEMP 36.9; O2SAT 96; O2SAT 97
[2022-08-06] MEDS: 0.9% Normal Saline 1,000 ML 80 ML IV (22:51)
[2022-08-06] MEDS: Ondansetron 4 MG/2 ML Vial IV (22:51)
[2022-08-06] MEDS: Morphine 4 MG/ML Syringe IV (22:54)
--- NOTE | 2022-08-06 23:15 | US_ITS ---
INDICATION: pain, abn CT COMPARISON: Abdominal CT same day. Abdominal ultrasound 2022.. FINDINGS: 144 grayscale ultrasound images of the right upper quadrant and right pelvis. PORTAL VEIN: Main portal vein is patent. AORTA: Not well visualized IVC: No obvious IVC filling defect. BILIARY SYSTEM: Common bile duct measures 0.5 cm in diameter. GALLBLADDER:?Dependent gallbladder sludge and cholelithiasis. Gallbladder wall thickness is normal at approximately 0.28 cm (over measured by technologist, including pericholecystic fat). No sonographic Gannon sign. No pericholecystic fluid. LIVER: Unremarkable hepatic parenchyma. PANCREAS: Visualized portions of the pancreas are unremarkable. KIDNEY: Right [place] kidney is without shadowing nephrolith or hydronephrosis. Few anechoic small cystic lesions consistent with renal cysts. Echogenic somewhat serpentine appearing focus at the right pelvic transplant kidney medial renal pole, appears to correlate with surgical clip seen on comparison CT. Minimal prominence of the transplant kidney renal pelvis, unchanged from comparison ultrasound previous month. No significant free fluid. US/Gallbladder IMPRESSION: Cholelithiasis without definite evidence of acute cholecystitis. If persistent clinical concern may be better evaluated with dedicated medicine hepatobiliary scan. Minimal prominence of the transplant kidney renal pelvis, unchanged from comparison ultrasound previous month. Electronically Signed: Clark Iraheta MD at 1:19 EDT ,
[2022-08-06 23:16] VITALS: BP 136/82; PULSE 88; RESP 14; TEMP 36.8; O2SAT 94
[2022-08-07] VITALS: BP 136/82; PULSE 88; RESP 18; O2SAT 95
[2022-08-07] MEDS: Ceftriaxone 1 GM/50 ML BAG IV (01:08)
[2022-08-07 01:36] VITALS: BP 143/94; PULSE 96; RESP 17; O2SAT 95
[2022-08-07 02:00] VITALS: BP 143/64; PULSE 96; RESP 17; O2SAT 95
== END 2022-08-07 07:01 | disposition home or self-care (01) ==
PROVIDERS: Emergency Provider Emergency Medicine; PCP Family Medicine; Visit Provider Emergency Medicine
DX: N39.0 Urinary tract infection, site not specified (principal); N18.32 Chronic kidney disease, stage 3b; K80.20 Calculus of gallbladder without cholecystitis without obstruction; M79.671 Pain in right foot; R10.84 Generalized abdominal pain; I12.9 Hypertensive chronic kidney disease with stage 1 through stage 4 chronic kidney disease, or unspecified chronic kidney disease; M79.672 Pain in left foot; J18.9 Pneumonia, unspecified organism; R10.9 Unspecified abdominal pain; Z94.0 Kidney transplant status; Z86.718 Personal history of other venous thrombosis and embolism
CPT/HCPCS: 71046; 74176; 76705; 80053; 81001; 83605; 83690; 84484; 85025; 87077; 87086; 87088; 87186; 93005; 96361; 96365; 96375; 99285; J7030; P9612; A4216; J2405

== ENCOUNTER 2022-08-11 05:59 | Emergency (ER) | payer MEDICARE, MEDICAID, SELFPAY ==
[2022-08-11 06:00] VITALS: BP 150/89; PULSE 91; RESP 16; TEMP 36.9; O2SAT 98
[2022-08-11 06:01] VITALS: BP 150/89; PULSE 93; RESP 16; TEMP 36.9; O2SAT 98; BMI 23.1
--- NOTE | 2022-08-11 06:04 | RAD_ITS ---
INDICATION: chest pain EXAMINATION/TECHNIQUE: X-RAY - XR Chest 1 View COMPARISON: Chest x-ray from 08/06/2022 FINDINGS: LINES/DEVICES: None. LUNGS: Mild residual bibasilar opacities. No sizable pleural effusion. No pneumothorax detected. MEDIASTINUM AND CARDIOVASCULAR STRUCTURES: Heart size within normal limits for imaging technique. Mediastinal contours unremarkable. BONES AND SOFT TISSUES: Skeletal degenerative changes. RAD/Chest 1 View (Portable) IMPRESSION: Slightly improving bibasilar atelectasis versus infiltrate. Electronically Signed: Luis Armando Anderson MD at 6:55 EDT ,
--- NOTE | 2022-08-11 06:15 | EX.ED.DYSGE1 ---
HPI History of Present Illness Chief Complaint: Chest Pain Informant: patient and EMS Onset/Context/Timing Onset: Today Narrative Narrative: Patient presents via EMS secondary to chest pressure. He is a poor informant has mild cognitive delays at baseline. He puts his hand over his sternum and states that he has pressure. When asked further questions such as whether he feels short of breath he starts talking about other topics. He is complaining of bilateral leg pain. On review of records it appears the patient was seen on August 06 with complaints of chest pain, abdominal pain, and leg pain. He was found have a UTI and possible left basilar pneumonia and was started on Levaquin. [facility] Medical History Anemia in chronic illness Bladder dysfunction Bronchitis Chronic kidney disease, stage 3b CKD (chronic kidney disease), stage III Congenital nystagmus DVT (deep venous thrombosis) History of DVT (deep vein thrombosis) History of encephalopathy History of pulmonary embolism HTN (hypertension) Immunosuppressed status Mild intellectual disability Neurogenic bladder disorder Neutropenia Pancytopenia Pulmonary embolism Severe protein-calorie malnutrition Urinary retention Vocal cord dysfunction Home Medications mycophenolate mofetil 500 mg tablet 500 mg PO 0900,2100 Anti-Rejection 07/14/16 [History Last Taken 07/30/22] multivitamin 1 tab PO DAILY supplement 02/13/22 [History Last Taken 07/30/22] acetaminophen 325 mg tablet (Tylenol) 650 mg PO Q6H PRN PRN Pain 1-10 Or Fever>100.7 #0 tabs 04/21/22 [Rx Last Taken 06/02/22] lactulose 20 gram/30 mL oral solution 30 ml PO Q4 06/13/22 [History Last Taken 07/31/22] rifaximin 550 mg tablet (Xifaxan) 550 mg PO BID Check with primary doctor 07/16/22 [History Last Taken 07/30/22] sodium bicarbonate 650 mg tablet 1,300 mg PO TID Check with primary doctor 07/16/22 [History Last Taken 07/31/22] tacrolimus 1 mg capsule, immediate-release (Prograf) 1.5 mg PO Q12H Check with primary doctor 07/16/22 [History Last Taken 07/30/22] levofloxacin 750 mg tablet 750 mg PO DAILY #5 tabs 08/07/22 [Rx Last Taken Unknown] Allergy/AdvReac Type Severity Reaction Status Date / Time red dye Allergy PT UNSURE Verified 08/06/22 20:44 OF REACTION Family History Mother Hypertension Father Diabetes Surgical History Kidney transplant recipient Renal transplant recipient S/P arteriovenous (AV) fistula creation Social History household members: none housing: snf Smoking Status: Never smoker second hand exposure: No alcohol intake: never substance use type: does not use caffeine: No ROS ROS ED Review of Systems ROS Unobtainable: due to mental condition Cardiovascular Cardiovascular: Reports chest pain Musculoskeletal Musculoskeletal: Reports arthralgias EXAM Physical Exam Const Vital Signs: 08/11/22 06:01 08/11/22 06:00 08/11/22 06:21 Temperature 98.5 F 98.5 F Temperature Source Temporal Temporal Pulse Rate 93 91 Respiratory Rate 16 16 Blood Pressure 150/89 H 150/89 H Blood Pressure Mean 109 109 Pulse Ox 98 98 96 Oxygen Delivery Method Room Air Room Air Room Air Positive well nourished and well developed General Appearance ED: well developed HEENT Reports moist mucous membranes Eyes EOMs intact bilaterally Chest Wall inspection of chest normal and palpation of chest normal Resp normal respiratory effort and clear to auscultation bilaterally Cardio regular rate and regular rhythm GI non-tender Palpation: soft Extremity Extremity Narrative: 2+ bilateral lower extremity edema. No erythema or sign of infection. Neuro Neuro Narrative: Moves all 4 extremities. Sensorium / Orientation: alert Skin no rashes or lesions noted MDM MDM MDM Narrative Medical decision making narrative: Patient placed on surveillance monitor. Aspirin provided. EKG obtained to evaluate for cardiac arrhythmia/ischemia. Chest x-ray obtained to evaluate for acute lung pathology, cardiac size, or mediastinal abnormality. Labwork obtained to evaluate for leukocytosis, anemia, and electrolyte derangement. History & Record Review Discussion w/independent historian: EMS personnel Additional record(s) reviewed:: Prior ED visit and Prior labs Lab Data Attestation: I reviewed the patient's lab results. Labs: Laboratory Results - last 24 hr 08/11/22 08/11/22 08/11/22 06:00 06:00 06:00 WBC 4.4 RBC 3.52 L Hgb 10.5 L Hct 32.9 L MCV 93.5 MCH 29.8 MCHC 31.9 L D RDW Std Deviation 47.2 H RDW Coeff of Anil 14.1 Plt Count 158 MPV 11.4 Immature Gran % (Auto) 0.700 Neut % (Auto) 55.7 Lymph % (Auto) 19.4 Rush % (Auto) 16.3 H Eos % (Auto) 7.2 H Baso % (Auto) 0.7 Absolute Neuts (auto) 2.5 Absolute Lymphs (auto) 0.86 Nucleated RBC % 0 D-Dimer Quant (PE/DVT) 2.10 H* Sodium 140 Potassium 3.8 Chloride 114 H Carbon Dioxide 22.0 Anion Gap 4 L BUN 20 H Creatinine 1.47 H Estim Creat Clear Calc 62.00 Est GFR (MDRD) Af Amer 64 Est GFR (MDRD) Non-Af 53 L BUN/Creatinine Ratio 13.6 Glucose 93 Calcium 8.1 L Troponin I High Sens 32 Radiography Chest X-Ray - ED: 1 View, Read by ED Physician and Chronic Changes (Chronic changes most pronounced at the left base.) Diagnostic Testing: Clinical Impression(s) from Imaging Studies Chest X-Ray 08/11/22 06:04 IMPRESSION: Slightly improving bibasilar atelectasis versus infiltrate. Electronically Signed: Luis Armando Anderson MD at 6:55 EDT , EKG Initial EKG: Attestation: I personally reviewed and interpreted this EKG as follows: Interpretation: Sinus Rhythm (Sinus at 91 with no acute ischemia. QTc is 516.) Treatment and Re-Evaluation :: CBC was normal white count with a hemoglobin of 10.5. This appears consistent with his prior value. Chemistry studies reveal a BUN of 20 and creatinine 1.47. Troponin is normal at 32. D-dimer is 2.10. Chest x-ray reveals chronic changes, most pronounced at the left base per my interpretation. Radiology interpretation is reviewed. They do feel that there is some slight improvement at the left lung base with atelectasis versus infiltrate. Patient does have a history of DVT and PE and is no longer on anticoagulation. Given his D-dimer he is sent for a CTA of the chest. He will also need a 2-hour repeat troponin. This was signed out oncoming physician for final evaluation and disposition. Discharge Plan Triage Chief Complaint: Chest Pain ED Provider: Vania Sullivan Dx/Rx/DC Orders Clinical Impression: Chest pain Prescriptions: No Action mycophenolate mofetil 500 MG tablet 500 mg PO 0900,2100 Label Comments: anti rejection multivitamin Tablet 1 tab PO DAILY acetaminophen [Tylenol] 325 mg Tablet 650 mg PO Q6H PRN PRN (Reason: Pain 1-10 Or Fever>100.7) Qty: 0 0RF lactulose 20 gram/30 mL solution 30 ml PO Q4 tacrolimus [Prograf] 1 mg Capsule 1.5 mg PO Q12H sodium bicarbonate 650 mg tablet 1,300 mg PO TID Xifaxan 550 mg tablet 550 mg PO BID levofloxacin 750 mg tablet 750 mg PO DAILY Qty: 5 0RF Primary Care Provider: Mike Bella Referrals: Mike Bella MD [Primary Care Provider] -
[2022-08-11 06:21] VITALS: O2SAT 96
[2022-08-11 06:24] LABS: Absolute Lymphocyte Count 0.86 X10^3/uL (0.83-4.51); Absolute Neutrophil Count 2.5 X10^3/uL (2.0-7.7); Basophil# 0.03 X10^3/uL; Basophil% 0.7 % (0-1); Eosinophil# 0.32 X10^3/uL; Eosinophils% 7.2 % (0-5); Hematocrit 32.9 % (40-54); Hemoglobin 10.5 g/dL (13.0-16.5); Lymphocyte # 0.86 X10^3/ul (0.83-4.51); Lymphocyte % 19.4 % (19-41); Mean Corp Hgb Conc 31.9 g/dL (32-36); Mean Corpuscular Hgb 29.8 pg (27.0-32.0); Mean Corpuscular Volume 93.5 fL (80-94); Mean Platelet Vol. 11.4 fl (6.2-12.0); Monocyte# 0.72 X10^3/uL; Monocyte% 16.3 % (0-10); NRBC Flagged by Analyzer 0 % (0-5); Neutrophil # 2.47 X10^3/uL (2.7-7.7); Neutrophil % 55.7 % (47-70); Platelet Count 158 K/mm3 (150-450); RBC Distribution Width CV 14.1 % (11.6-14.6); RBC Distribution Width SD 47.2 fl (35.1-43.9); Red Blood Count 3.52 M/mm3 (4.6-6.2); White Blood Count 4.4 K/mm3 (4.4-11.0)
[2022-08-11] MEDS: Aspirin 81 MG TAB.CHEW 324 MG PO (06:32)
[2022-08-11 06:43] LABS: Anion Gap 4 (5-15); BUN 20 mg/dL (7-18); BUN/Creat Ratio 13.6 RATIO (10-20); Calcium,Total 8.1 mg/dL (8.5-10.1); Chloride 114 mmol/L (98-107); Creatinine, Serum 1.47 mg/dL (0.70-1.30); EST Glomerular Filtration Rate 53 mL/min (>60); Est Glom Filt Rate - Afr Amer 64 mL/min (>60); Glucose 93 mg/dL (74-106); Potassium 3.8 mmol/L (3.5-5.1); Sodium Level 140 mmol/L (136-145); Troponin-I HS (w/2H Reflex) 32 pg/mL (3.0-78.0)
--- NOTE | 2022-08-11 07:08 | CT_ITS ---
STUDY: CTA CHEST REASON FOR EXAM: Male, 57 years old. Chest pain, elevated d-dimer RADIATION DOSAGE (If Supplied By Facility): CTDIvol = ( 22.92 ) mGy, DLP = ( 859.58 ) mGy TECHNIQUE: The examination was performed with the intravenous administration of IV 100mL Isovue-370. Post-processing of the angiographic images was performed, with multiplanar reformation and 3D reconstruction. Individualized dose optimization techniques were used for this CT. COMPARISON: None. FINDINGS: There is limited enhancement of the main pulmonary artery and right and left pulmonary arteries. There is limited enhancement of the bilateral peripheral pulmonary arteries. There is no demonstrated pulmonary embolism however, the contrast bolus within the pulmonary arteries is not optimal, and a subtle filling defect could easily be present overlooked, particularly in the distal vessels.. Normal thoracic aorta and visualized great vessels. There is no demonstrated aortic dissection. Normal heart and pericardium. There are calcifications of the coronary arteries. Normal mediastinum. Normal hilar regions. Normal visualized trachea and bronchi. The lungs are well expanded. Chronic interstitial changes noted in both lung trevizo and nonspecific pleural thickening in both hemithoraces, and bibasilar atelectasis. No organized infiltrate, effusion, or suspicious noncalcified mass or nodule. Evidence of chronic bronchitis Normal pleura. Normal chest wall structures. There are degenerative changes of thoracic spine. Limited cuts through the upper abdomen show atrophic [place] kidneys with simple cysts and dilated right collecting system. There is gallbladder wall thickening with pericholecystic fluid. CT/CTA Chest W/WO Contrast IMPRESSION: No demonstrated PE, or thoracic aortic aneurysm or dissection. However, the contrast bolus within the pulmonary arteries is not optimal and a subtle filling defect could be present in the overload particularly the distal vessels. No acute pulmonary process, there is evidence of chronic bronchitis with nonspecific pleural thickening and bibasilar atelectasis Calcified coronary vessels No suspicious adenopathy Atrophic [place] kidneys, I suspect patient has undergone a renal transplant. There are simple cysts but no suspicious solid lesion. Gallbladder wall thickening with pericholecystic fluid suggests the possibility of cholecystitis. Electronically Signed: Aime Luu MD at 8:05 EDT ,
[2022-08-11 08:21] LABS: Reflex Troponin-HS? (from REC) Y
[2022-08-11 08:41] LABS: Troponin-I HS 31 pg/mL (3.0-78.0)
[2022-08-11 09:07] VITALS: BP 138/80; PULSE 87; RESP 15; O2SAT 98
[2022-08-11] MEDS: Mycophenolate Mofetil 250 MG Capsule 500 MG PO (09:08)
[2022-08-11] MEDS: Tacrolimus 0.5 MG Capsule PO (09:09)
--- NOTE | 2022-08-11 09:28 | ED.RN ---
sister lilliam aware pt returning to [facility].
[2022-08-11 09:29] VITALS: BP 134/78; PULSE 80; RESP 15; O2SAT 95
== END 2022-08-11 10:22 | disposition home or self-care (01) ==
PROVIDERS: Emergency Provider Emergency Medicine; PCP Family Medicine; Visit Provider Emergency Medicine
DX: R07.9 Chest pain, unspecified (principal); Z94.0 Kidney transplant status; Z79.899 Other long term (current) drug therapy; I10 Essential (primary) hypertension
CPT/HCPCS: 71045; 71275; 80048; 84484; 85025; 85379; 93005; 99285; Q9967; A4216

== ENCOUNTER → 2022-08-19 | Outpatient (CLI) | payer MEDICARE, MEDICAID, SELFPAY ==
[2022-08-19 16:18] LABS: ALB/GLOB Ratio 0.9 RATIO (0.9-2.4); AST(SGOT) 51 U/L (15-37); Alanine Aminotransfer ALT/SGPT 41 U/L (16-61); Albumin, Serum 3.3 g/dL (3.2-5.0); Alkaline Phosphatase 85 U/L (45-117); Anion Gap 6 (5-15); BUN 20 mg/dL (7-18); BUN/Creat Ratio 16.4 RATIO (10-20); Calcium,Total 8.5 mg/dL (8.5-10.1); Chloride 113 mmol/L (98-107); Creatinine, Serum 1.22 mg/dL (0.70-1.30); EST Glomerular Filtration Rate 66 mL/min (>60); Est Glom Filt Rate - Afr Amer 79 mL/min (>60); Globulin 3.5 g/dL (2.2-4.2); Glucose 107 mg/dL (74-106); Potassium 3.9 mmol/L (3.5-5.1); Protein, Total 6.8 g/dL (6.4-8.2); Sodium Level 140 mmol/L (136-145)
== END | disposition home or self-care (01) ==
LOC: MFPLAB 14:52
PROVIDERS: PCP Family Medicine; Visit Provider Family Medicine
DX: N19 Unspecified kidney failure (principal)
CPT/HCPCS: 36415; 80053; 82140

== ENCOUNTER 2022-08-24 18:47 | Emergency (ER) | payer MEDICARE, MEDICAID, SELFPAY ==
[2022-08-24 19:14] VITALS: BP 115/70; PULSE 75; RESP 18; TEMP 36.4; O2SAT 95
[2022-08-24 19:32] LABS: Absolute Lymphocyte Count 0.83 X10^3/uL (0.83-4.51); Absolute Neutrophil Count 3.7 X10^3/uL (2.0-7.7); Basophil# 0.04 X10^3/uL; Basophil% 0.7 % (0-1); Eosinophil# 0.18 X10^3/uL; Eosinophils% 3.2 % (0-5); Hematocrit 36.9 % (40-54); Hemoglobin 11.7 g/dL (13.0-16.5); Lymphocyte # 0.83 X10^3/ul (0.83-4.51); Lymphocyte % 14.9 % (19-41); Mean Corp Hgb Conc 31.7 g/dL (32-36); Mean Corpuscular Hgb 29.5 pg (27.0-32.0); Mean Corpuscular Volume 93.2 fL (80-94); Monocyte# 0.76 X10^3/uL; Monocyte% 13.7 % (0-10); NRBC Flagged by Analyzer 0 % (0-5); Neutrophil # 3.72 X10^3/uL (2.7-7.7); Platelet Count 155 K/mm3 (150-450); RBC Distribution Width CV 15.1 % (11.6-14.6); Red Blood Count 3.96 M/mm3 (4.6-6.2); White Blood Count 5.6 K/mm3 (4.4-11.0)
[2022-08-24 19:49] LABS: ALB/GLOB Ratio 0.9 RATIO (0.9-2.4); AST(SGOT) 48 U/L (15-37); Alanine Aminotransfer ALT/SGPT 40 U/L (16-61); Albumin, Serum 3.4 g/dL (3.2-5.0); Alkaline Phosphatase 84 U/L (45-117); Anion Gap 6 (5-15); BUN 28 mg/dL (7-18); BUN/Creat Ratio 20.7 RATIO (10-20); Calcium,Total 8.8 mg/dL (8.5-10.1); Chloride 110 mmol/L (98-107); Creatinine, Serum 1.35 mg/dL (0.70-1.30); EST Glomerular Filtration Rate 58 mL/min (>60); Est Glom Filt Rate - Afr Amer 71 mL/min (>60); Globulin 3.8 g/dL (2.2-4.2); Glucose 111 mg/dL (74-106); Potassium 3.8 mmol/L (3.5-5.1); Protein, Total 7.2 g/dL (6.4-8.2); Sodium Level 139 mmol/L (136-145)
--- NOTE | 2022-08-24 20:27 | ED.RN ---
2015 pt's sister took pt home.
== END 2022-08-24 20:15 | disposition left against medical advice (07) ==
LOC: ED 20:44
PROVIDERS: PCP Family Medicine
DX: R10.9 Unspecified abdominal pain (principal)
CPT/HCPCS: 80053; 85025

== ENCOUNTER 2022-11-01 21:41 | Emergency (ER) | payer MEDICARE, MEDICAID, SELFPAY ==
[2022-11-01 21:43] VITALS: BP 173/101; PULSE 103; RESP 20; TEMP 36.9; O2SAT 95; BMI 26.4
--- NOTE | 2022-11-01 22:09 | EKG12_ITS ---
Test Reason : GEN ILLNESS Blood Pressure : / mmHG Vent. Rate : 099 BPM Atrial Rate : 099 BPM P-R Int : 180 ms QRS Dur : 096 ms QT Int : 388 ms P-R-T Axes : 059 009 080 degrees QTc Int : 497 ms Normal sinus rhythm Nonspecific T wave abnormality Prolonged QT Abnormal ECG Confirmed by SUSAN MORENO, RAEANN ([id number]), senior editor MIGUEL ANGEL DEAL ([id number]) on 11/02/2022 12:33:00 PM Referred By: MALIHA Confirmed By:RAEANN DAVIS MD
[2022-11-01 22:18] LABS: Absolute Lymphocyte Count 0.98 X10^3/uL (0.83-4.51); Absolute Neutrophil Count 2.7 X10^3/uL (2.0-7.7); Basophil# 0.05 X10^3/uL; Eosinophils% 4.2 % (0-5); Hematocrit 37.7 % (40-54); Hemoglobin 12.2 g/dL (13.0-16.5); Lymphocyte # 0.98 X10^3/ul (0.83-4.51); Lymphocyte % 20.5 % (19-41); Mean Corp Hgb Conc 32.4 g/dL (32-36); Mean Corpuscular Hgb 29.1 pg (27.0-32.0); Mean Platelet Vol. 10.9 fl (6.2-12.0); Monocyte# 0.87 X10^3/uL; Monocyte% 18.2 % (0-10); NRBC Flagged by Analyzer 0 % (0-5); Neutrophil # 2.66 X10^3/uL (2.7-7.7); Neutrophil % 55.9 % (47-70); Platelet Count 164 K/mm3 (150-450); RBC Distribution Width CV 15.2 % (11.6-14.6); Red Blood Count 4.19 M/mm3 (4.6-6.2); White Blood Count 4.8 K/mm3 (4.4-11.0)
--- NOTE | 2022-11-01 22:25 | RAD_ITS ---
STUDY: X-RAY CHEST REASON FOR EXAM: Male, 57 years old. Shortness of breath TECHNIQUE: PA and lateral views of the chest. COMPARISON: 08/11/2022 FINDINGS: Alveolar opacity in both lung bases consistent with bibasilar atelectasis or pneumonia. There is no demonstrated pleural abnormality. There is moderate cardiac enlargement. Normal mediastinum and alton. Normal visualized pulmonary arteries. Normal visualized aortic arch and descending thoracic aorta. Normal visualized thoracic spine. Normal visualized ribs, clavicles, and shoulders. There is no demonstrated abnormality of the visualized soft tissue structures of the upper abdomen. RAD/Chest PA and Lateral IMPRESSION: Bibasilar atelectasis or pneumonia. Cardiomegaly. Electronically Signed: Sulaiman Donovan MD at 22:58 EDT ,
[2022-11-01 22:38] LABS: D-Dimer Quantitative (DVT/PE) 2.75 FEU/ug/m (0.27-0.49)
[2022-11-01 22:40] LABS: ALB/GLOB Ratio 0.8 RATIO (0.9-2.4); AST(SGOT) 75 U/L (15-37); Alanine Aminotransfer ALT/SGPT 60 U/L (16-61); Alkaline Phosphatase 79 U/L (45-117); Anion Gap 6 (5-15); BUN 21 mg/dL (7-18); BUN/Creat Ratio 14.6 RATIO (10-20); Calcium,Total 7.9 mg/dL (8.5-10.1); Chloride 111 mmol/L (98-107); Creatinine, Serum 1.44 mg/dL (0.70-1.30); EST Glomerular Filtration Rate 54 mL/min (>60); Est Glom Filt Rate - Afr Amer 65 mL/min (>60); Estimated Creatinine Clearance 63.62 ml/min; Globulin 3.7 g/dL (2.2-4.2); Glucose 103 mg/dL (74-106); Potassium 3.2 mmol/L (3.5-5.1); Protein, Total 6.7 g/dL (6.4-8.2); Sodium Level 139 mmol/L (136-145)
[2022-11-02 00:08] VITALS: BP 157/99; PULSE 93; RESP 20; O2SAT 93
--- NOTE | 2022-11-02 00:25 | EDS_ITS ---
HPI History of Present Illness Chief Complaint: General Illness Detail of Chief Complaint: Patient presents because of right leg swelling. He also complains of gener Informant: patient and spouse/S.O. Onset/Context/Timing Onset: - (Uncertain first included today by nurse at the [facility]) Context: - (Unknown) Timing: - (Unknown) Quality: Right lower extremity swelling Location: Right leg predominantly Current Severity: Moderate Maximum Severity: Moderate Worsened by: Nothing Relieved by: Nothing Associated Symptoms Associated Symptoms: Per HPI narrative Narrative Narrative: Patient is a 57-year-old male who has resided at the [facility] for the past 4 years. He was sent in because of right leg swelling and discomfort. There is no known history of VTE. Patient denies chest pain. He does complain of mild shortness of breath. He denies cough. He denies fever, chills or night sweats. He denies headache, visual, ocular symptoms. He does have bilateral hearing aids. He has difficulty hearing since the hearing aids were just purchased and need to be adjusted. He denies rhinorrhea, congestion, postnasal drainage or sore throat. He denies chest pain and specifically pleuritic chest pain. He denies abdominal pain, nausea, vomiting or diarrhea. He denies black or maroon-colored stool. He denies urologic symptoms. Patient is hard of hearing. He does have history of metabolic and infectious encephalopathy. Prior similar symptoms: No Recent [facility]ness[facility] Medical History Anemia in chronic illness Bladder dysfunction Bronchitis Chronic kidney disease, stage 3b CKD (chronic kidney disease), stage III Congenital nystagmus DVT (deep venous thrombosis) History of DVT (deep vein thrombosis) History of encephalopathy History of pulmonary embolism HTN (hypertension) Immunosuppressed status Mild intellectual disability Neurogenic bladder disorder Neutropenia Pancytopenia Pulmonary embolism Severe protein-calorie malnutrition Urinary retention Vocal cord dysfunction Home Medications mycophenolate mofetil 500 mg tablet 500 mg PO 0900,2100 Anti-Rejection 07/14/16 [History Last Taken 07/30/22] multivitamin 1 tab PO DAILY supplement 02/13/22 [History Last Taken 07/30/22] acetaminophen 325 mg tablet (Tylenol) 650 mg (2 x 325 mg) PO Q6H PRN PRN Pain 1- 10 Or Fever>100.7 #0 tabs 04/21/22 [Rx Last Taken 06/02/22] lactulose 20 gram/30 mL oral solution 30 ml PO Q4 06/13/22 [History Last Taken 07/31/22] rifaximin 550 mg tablet (Xifaxan) 550 mg PO BID Check with primary doctor 07/01 10/23 [History Last Taken 07/30/22] sodium bicarbonate 650 mg tablet 1,300 mg PO TID Check with primary doctor 07/16/22 [History Last Taken 07/31/22] tacrolimus 1 mg capsule, immediate-release (Prograf) 0.5 mg PO Q12H Check with primary doctor 07/16/22 [History Last Taken 07/30/22] levofloxacin 750 mg tablet 750 mg PO DAILY #5 tabs 08/07/22 [Rx Last Taken Unknown] bisacodyl 10 mg rectal suppository 10 mg ME DAILY PRN constipation 11/01/22 [History Last Taken Unknown] bismuth subsalicylate 262 mg/15 mL oral suspension (Pepto-Bismol) 524 mg PO Q30M PRN GI DISTRESS 11/01/22 [History Last Taken Unknown] magnesium hydroxide 400 mg/5 mL oral suspension (Dulcolax (magnesium hydroxide)) 5 ml PO DAILY PRN constipation 11/01/22 [History Last Taken Unknown] mineral oil (Fleet Mineral Oil enema) 118 ml ME DAILY PRN constipation 11/01/22 [History Last Taken Unknown] mirtazapine 30 mg tablet 30 mg PO QHS 11/01/22 [History Last Taken Unknown] Allergy/AdvReac Type Severity Reaction Status Date / Time red dye Allergy PT UNSURE Verified 11/01/22 21:52 OF REACTION Family History Mother Hypertension Father Diabetes Surgical History Kidney transplant recipient Renal transplant recipient S/P arteriovenous (AV) fistula creation Social History household members: none housing: intermediate Smoking Status: Never smoker second hand exposure: No alcohol intake: never substance use type: does not use caffeine: No ROS ROS ED Constitutional Constitutional ED: Denies chills, fever(s), subjective, sweats or weight loss Eyes Eyes: Denies blurry vision, change in vision or diplopia ENT ENT ED: Denies ear pain, rhinorrhea or sore throat Cardiovascular Cardiovascular: Denies chest pain, orthopnea, palpitations, paroxysmal nocturnal dyspnea or racing heartbeat Respiratory/Chest Respiratory/Chest: Reports dyspnea; Denies cough, dyspnea on exertion, orthopnea or paroxysmal nocturnal dyspnea Gastrointestinal Gastrointestinal: Denies abdominal pain, constipation, diarrhea, melena, nausea or vomiting Genitourinary Genitourinary ED: Denies dysuria, hematuria or urinary frequency Musculoskeletal Musculoskeletal: Reports other Details: Right lower extremity pain and swelling ; Denies arthralgias, back pain, myalgias or neck pain Integumentary Denies rash Neurologic Neurologic: Reports weakness; Denies paresthesias Endocrine Endocrinology: Denies cold intolerance or heat intolerance Hematologic/Lymphatic Hematologic/Lymphatic: Reports systems reviewed and no addt'l complaints, except as documented EXAM Physical Exam Const Vital Signs: 11/01/22 21:43 11/02/22 00:08 Temperature 98.5 F Temperature Source Temporal Pulse Rate 103 H 93 Respiratory Rate 20 H 20 H Blood Pressure 173/101 H 157/99 H Blood Pressure Mean 125 118 Pulse Ox 95 93 Positive well nourished and well developed General Appearance ED: well developed and NAD; Negative for cyanotic, diaphoretic or pallor HEENT Reports moist mucous membranes HEENT Narrative: Head is atraumatic. Head is not normocephalic. Patient has bilateral hearing aids. Ears are normal. Nares patent with slight discharge. Posterior pharynx out erythema or exudate. Uvula is midline. Eyes PERRL and EOMs intact bilaterally Eyes Narrative: Patient has horizontal nystagmus, which is chronic General Eye ED: Negative for pale conjunctiva or scleral icterus Neck no lymphadenopathy, supple and no JVD Chest Wall inspection of chest normal and palpation of chest normal Resp normal respiratory effort and clear to auscultation bilaterally Cardio regular rate, regular rhythm, S1 normal heart sound, S2 normal heart sound and no murmurs GI normal to inspection, nondistended, normoactive bowel sounds, non-tender, non- distended and no masses; Negative for hepatosplenomegaly Auscultation: normoactive bowel sounds Back/Spine no CVA tenderness Cervical Spine: Negative for cervical spine tenderness Thoracic Spine / Upper Back: Negative for thoracic spinal tenderness Extremity Negative for normal to inspection Extremity Narrative: The right lower extremity is swollen compared to the left. There is a significant difference of the calf. There is mild pedal edema noted as well. There is tenderness along the distribution deep venous system. There is no leg vein distention. There is no palpable cords. There may be slight discoloration of the leg on the right side. General Extremety ED: Yes edema and tenderness General Extremity: edema Neuro oriented x3, CN's II-XII intact bilaterally and no sensory deficits noted Sensorium / Orientation: alert Psych mental status grossly normal Skin no rashes or lesions noted, no wounds and No skin turgor normal General Skin Exam: Negative for elasticity normal, jaundice or pallor MDM MDM [facility] Narrative Medical decision making narrative: With prior history of PE asymmetric swollen right leg with tenderness on disappears deep venous systems concern for DVT. D-dimer was obtained. Because patient complains of shortness of breath chest x-ray was obtained to assess for pneumonia since he reported mild cough. He is also noted to have nasal congest ion which she denied. CBC was obtained to assess white count and H&H to rule out anemia. Basic metabolic panel was obtained to assess renal function in the event a CTA is needed. D-dimer is added to 0.75 and is abnormal. Creatinine is elevated at 1.44 with a GFR of 54 total bili is slightly elevated 2.1. AST is elevated at 75 With an elevated D-dimer prior history of PE and the fact that he has a swollen discolored painful right lower extremity patient was given 10 mg of Eliquis. Outpatient venous duplex study was ordered. Lab Data Attestation: I reviewed the patient's lab results. Lab results narrative: Documented in the MDM narrative Labs: Laboratory Results - last 24 hr 11/01/22 22:10 WBC 4.8 RBC 4.19 L Hgb 12.2 L Hct 37.7 L MCV 90.0 MCH 29.1 MCHC 32.4 RDW Std Deviation 50.0 H RDW Coeff of Anil 15.2 H Plt Count 164 MPV 10.9 Immature Gran % (Auto) 0.200 Neut % (Auto) 55.9 Lymph % (Auto) 20.5 [place] % (Auto) 18.2 H Eos % (Auto) 4.2 Baso % (Auto) 1.0 Absolute Neuts (auto) 2.7 Absolute Lymphs (auto) 0.98 Nucleated RBC % 0 D-Dimer Quant (PE/DVT) 2.75 H* Sodium 139 Potassium 3.2 L Chloride 111 H Carbon Dioxide 22.0 Anion Gap 6 BUN 21 H Creatinine 1.44 H Estim Creat Clear Calc 63.62 Est GFR (MDRD) Af Amer 65 Est GFR (MDRD) Non-Af 54 L BUN/Creatinine Ratio 14.6 Glucose 103 Calcium 7.9 L Total Bilirubin 2.10 H AST 75 H ALT 60 Alkaline Phosphatase 79 Total Protein 6.7 Albumin 3.0 L Globulin 3.7 Albumin/Globulin Ratio 0.8 L Radiography Chest X-Ray - ED: 1 View and Read by ED Physician (Patient chest x-ray is suboptimal. There is a lordotic view. He is rotated. Inspiratory volume is limited. Difficult to assess whether patient has any abnormality. The findings may be due to poor inspiratory effort and poor technique. Since patient is not hypoxic or febrile doubt pneumonia mor) Diagnostic Testing: Clinical Impression(s) from Imaging Studies Chest X-Ray 11/01/22 22:25 IMPRESSION: Bibasilar atelectasis or pneumonia. Cardiomegaly. Electronically Signed: Sulaiman Donovan MD at 22:58 EDT , Differential Diagnosis Chest pain/SOB: pneumothorax Reason(s) pneumothorax less likely: Positive for bilateral breath sounds and [employer] withhout PTX, aortic dissection Reason(s) Aortic dissection less likely:: Positive for normal vascular exam, no history of HTN, normal neurological exam, no significant risk factors for dissection, no widened mediastinum on CXR, pain not sudden onset, no ripping/tearing pain, no pain to back and blood pressure appropriate in ED and CHF Reason(s) CHF less likely: Positive for no orthopnea and no evidence of fluid overload on CXR; Negative for no significant peripheral edema Treatment and Re-Evaluation :: Patient and significant other were informed of laboratory tests and need for outpatient testing. Discharge Plan Triage Chief Complaint: General Illness ED Provider: Denys Reed Dx/Rx/DC Orders Clinical Impression: Swelling of right lower extremity, Dyspnea, Elevated d-dimer, Hypertension Instructions: ED Dyspnea, ED Peripheral Edema, Unilateral Prescriptions: No Action mycophenolate mofetil 500 MG tablet 500 mg PO 0900,2100 Patient Comments: anti rejection multivitamin Tablet 1 tab PO DAILY acetaminophen [Tylenol] 325 mg Tablet 650 mg PO Q6H PRN PRN (Reason: Pain 1-10 Or Fever>100.7) Qty: 0 0RF lactulose 20 gram/30 mL solution 30 ml PO Q4 tacrolimus [Prograf] 1 mg Capsule 0.5 mg PO Q12H sodium bicarbonate 650 mg tablet 1,300 mg PO TID Xifaxan 550 mg tablet 550 mg PO BID levofloxacin 750 mg tablet 750 mg PO DAILY Qty: 5 0RF mirtazapine 30 mg tablet 30 mg PO QHS bismuth subsalicylate [Pepto-Bismol] 262 mg/15 mL suspension 524 mg PO Q30M PRN (Reason: GI DISTRESS) Rx Instructions: do not exceed 8 doses in a 24 hour period bisacodyl 10 mg suppository 10 mg ME DAILY PRN (Reason: constipation) mineral oil [Fleet Mineral Oil] Enema 118 ml ME DAILY PRN (Reason: constipation) Rx Instructions: discard any unused portion magnesium hydroxide [Dulcolax (magnesium hydroxide)] 400 mg/5 mL suspension 5 ml PO DAILY PRN (Reason: constipation) Primary Care Provider: Mike Bella Referrals: Mike Bella MD [Primary Care Provider] - Activity Restrictions/Additional Instructions: You were scheduled for an outpatient venous duplex study of your right lower extremity. You received a dose of Eliquis.
--- NOTE | 2022-11-02 00:39 | EX.ED.DYSGE1 ---
HPI History of Present Illness Chief Complaint: General Illness [facility] Medical History Anemia in chronic illness Bladder dysfunction Bronchitis Chronic kidney disease, stage 3b CKD (chronic kidney disease), stage III Congenital nystagmus DVT (deep venous thrombosis) History of DVT (deep vein thrombosis) History of encephalopathy History of pulmonary embolism HTN (hypertension) Immunosuppressed status Mild intellectual disability Neurogenic bladder disorder Neutropenia Pancytopenia Pulmonary embolism Severe protein-calorie malnutrition Urinary retention Vocal cord dysfunction Home Medications mycophenolate mofetil 500 mg tablet 500 mg PO 0900,2100 Anti-Rejection 07/14/16 [History Last Taken 07/30/22] multivitamin 1 tab PO DAILY supplement 02/13/22 [History Last Taken 07/30/22] acetaminophen 325 mg tablet (Tylenol) 650 mg (2 x 325 mg) PO Q6H PRN PRN Pain 1-10 Or Fever>100.7 #0 tabs 04/21/22 [Rx Last Taken 06/02/22] lactulose 20 gram/30 mL oral solution 30 ml PO Q4 06/13/22 [History Last Taken 07/31/22] rifaximin 550 mg tablet (Xifaxan) 550 mg PO BID Check with primary doctor 07/16/22 [History Last Taken 07/30/22] sodium bicarbonate 650 mg tablet 1,300 mg PO TID Check with primary doctor 07/16/22 [History Last Taken 07/31/22] tacrolimus 1 mg capsule, immediate-release (Prograf) 0.5 mg PO Q12H Check with primary doctor 07/16/22 [History Last Taken 07/30/22] levofloxacin 750 mg tablet 750 mg PO DAILY #5 tabs 08/07/22 [Rx Last Taken Unknown] bisacodyl 10 mg rectal suppository 10 mg [place] DAILY PRN constipation 11/01/22 [History Last Taken Unknown] bismuth subsalicylate 262 mg/15 mL oral suspension (Pepto-Bismol) 524 mg PO Q30M PRN GI DISTRESS 11/01/22 [History Last Taken Unknown] magnesium hydroxide 400 mg/5 mL oral suspension (Dulcolax (magnesium hydroxide)) 5 ml PO DAILY PRN constipation 11/01/22 [History Last Taken Unknown] mineral oil (Fleet Mineral Oil enema) 118 ml [place] DAILY PRN constipation 11/01/22 [History Last Taken Unknown] mirtazapine 30 mg tablet 30 mg PO QHS 11/01/22 [History Last Taken Unknown] Allergy/AdvReac Type Severity Reaction Status Date / Time red dye Allergy PT UNSURE Verified 11/01/22 21:52 OF REACTION Family History Mother Hypertension Father Diabetes Surgical History Kidney transplant recipient Renal transplant recipient S/P arteriovenous (AV) fistula creation Social History household members: none housing: residential Smoking Status: Never smoker second hand exposure: No alcohol intake: never substance use type: does not use caffeine: No EXAM Physical Exam Const Vital Signs: 11/01/22 21:43 11/02/22 00:08 Temperature 98.5 F Temperature Source Temporal Pulse Rate 103 H 93 Respiratory Rate 20 H 20 H Blood Pressure 173/101 H 157/99 H Blood Pressure Mean 125 118 Pulse Ox 95 93 MDM MDM Lab Data Labs: Laboratory Results - last 24 hr 11/01/22 22:10 WBC 4.8 RBC 4.19 L Hgb 12.2 L Hct 37.7 L MCV 90.0 MCH 29.1 MCHC 32.4 RDW Std Deviation 50.0 H RDW Coeff of Anil 15.2 H Plt Count 164 MPV 10.9 Immature Gran % (Auto) 0.200 Neut % (Auto) 55.9 Lymph % (Auto) 20.5 [place] % (Auto) 18.2 H Eos % (Auto) 4.2 Baso % (Auto) 1.0 Absolute Neuts (auto) 2.7 Absolute Lymphs (auto) 0.98 Nucleated RBC % 0 D-Dimer Quant (PE/DVT) 2.75 H* Sodium 139 Potassium 3.2 L Chloride 111 H Carbon Dioxide 22.0 Anion Gap 6 BUN 21 H Creatinine 1.44 H Estim Creat Clear Calc 63.62 Est GFR (MDRD) Af Amer 65 Est GFR (MDRD) Non-Af 54 L BUN/Creatinine Ratio 14.6 Glucose 103 Calcium 7.9 L Total Bilirubin 2.10 H AST 75 H ALT 60 Alkaline Phosphatase 79 Total Protein 6.7 Albumin 3.0 L Globulin 3.7 Albumin/Globulin Ratio 0.8 L Radiography Diagnostic Testing: Clinical Impression(s) from Imaging Studies Chest X-Ray 11/01/22 22:25 IMPRESSION: Bibasilar atelectasis or pneumonia. Cardiomegaly. Electronically Signed: Sulaiman Donovan MD at 22:58 EDT Reading Location ID and State: [facility] / [place] Tel , Service support , Discharge Plan Triage Chief Complaint: General Illness ED Provider: Denys Reed Dx/Rx/DC Orders Clinical Impression: Swelling of right lower extremity, Dyspnea, Elevated d-dimer, Hypertension Instructions: ED Dyspnea, ED Peripheral Edema, Unilateral Prescriptions: No Action mycophenolate mofetil 500 MG tablet 500 mg PO 0900,2100 Patient Comments: anti rejection multivitamin Tablet 1 tab PO DAILY acetaminophen [Tylenol] 325 mg Tablet 650 mg PO Q6H PRN PRN (Reason: Pain 1-10 Or Fever>100.7) Qty: 0 0RF lactulose 20 gram/30 mL solution 30 ml PO Q4 tacrolimus [Prograf] 1 mg Capsule 0.5 mg PO Q12H sodium bicarbonate 650 mg tablet 1,300 mg PO TID Xifaxan 550 mg tablet 550 mg PO BID levofloxacin 750 mg tablet 750 mg PO DAILY Qty: 5 0RF mirtazapine 30 mg tablet 30 mg PO QHS bismuth subsalicylate [Pepto-Bismol] 262 mg/15 mL suspension 524 mg PO Q30M PRN (Reason: GI DISTRESS) Rx Instructions: do not exceed 8 doses in a 24 hour period bisacodyl 10 mg suppository 10 mg [place] DAILY PRN (Reason: constipation) mineral oil [Fleet Mineral Oil] Enema 118 ml [place] DAILY PRN (Reason: constipation) Rx Instructions: discard any unused portion magnesium hydroxide [Dulcolax (magnesium hydroxide)] 400 mg/5 mL suspension 5 ml PO DAILY PRN (Reason: constipation) Primary Care Provider: Mike Bella Referrals: Mike Bella MD [Primary Care Provider] - As Needed Activity Restrictions/Additional Instructions: You were scheduled for an outpatient venous duplex study of your right lower extremity. You received a dose of Eliquis. Disposition Disposition: Home, Self Care
[2022-11-02] MEDS: APIXABAN 5 MG TABLET 10 MG PO (01:01)
[2022-11-02 01:16] VITALS: BP 157/99
== END 2022-11-02 01:17 | disposition home or self-care (01) ==
PROVIDERS: Emergency Provider Emergency Medicine; PCP Family Medicine; Visit Provider Emergency Medicine
DX: M79.89 Other specified soft tissue disorders (principal); N18.32 Chronic kidney disease, stage 3b; I12.9 Hypertensive chronic kidney disease with stage 1 through stage 4 chronic kidney disease, or unspecified chronic kidney disease; R79.89 Other specified abnormal findings of blood chemistry; R06.00 Dyspnea, unspecified; Z86.718 Personal history of other venous thrombosis and embolism; Z79.01 Long term (current) use of anticoagulants; Z94.0 Kidney transplant status
CPT/HCPCS: 71046; 80053; 85025; 85379; 93005; 99285; A4216

== ENCOUNTER 2022-12-27 20:53 | Inpatient (IN) | payer MEDICARE, MEDICAID, SELFPAY ==
[2022-12-27 20:55] VITALS: BP 176/88; PULSE 104; RESP 16; TEMP 36.1; O2SAT 93
[2022-12-27 20:57] VITALS: BMI 27.8
[2022-12-27 21:12] LABS: Absolute Lymphocyte Count 1.07 X10^3/uL (0.83-4.51); Absolute Neutrophil Count 3.2 X10^3/uL (2.0-7.7); Basophil# 0.05 X10^3/uL; Basophil% 0.9 % (0-1); Eosinophil# 0.29 X10^3/uL; Eosinophils% 5.3 % (0-5); Hemoglobin 12.8 g/dL (13.0-16.5); Lymphocyte # 1.07 X10^3/ul (0.83-4.51); Lymphocyte % 19.5 % (19-41); Mean Corp Hgb Conc 33.7 g/dL (32-36); Mean Corpuscular Hgb 29.5 pg (27.0-32.0); Mean Corpuscular Volume 87.6 fL (80-94); Monocyte% 16.4 % (0-10); NRBC Flagged by Analyzer 0 % (0-5); Neutrophil # 3.17 X10^3/uL (2.7-7.7); Neutrophil % 57.7 % (47-70); Platelet Count 155 K/mm3 (150-450); RBC Distribution Width CV 15.7 % (11.6-14.6); RBC Distribution Width SD 50.4 fl (35.1-43.9); Red Blood Count 4.34 M/mm3 (4.6-6.2); White Blood Count 5.5 K/mm3 (4.4-11.0)
--- NOTE | 2022-12-27 21:15 | RAD_ITS ---
INDICATION: chest pain EXAMINATION/TECHNIQUE: X-RAY - XR Chest 1 View COMPARISON: 11/01/2022 FINDINGS: LINES/DEVICES: None. Bibasilar airspace opacities more prominent on the left suggesting bilateral lower lobe pneumonia which is improved since the previous study. There is moderate cardiac enlargement. Normal mediastinum and alton. Normal visualized pulmonary arteries. Normal visualized aortic arch and descending thoracic aorta. Normal visualized thoracic spine. Normal visualized ribs, clavicles, and shoulders. There is no demonstrated abnormality of the visualized soft tissue structures of the upper abdomen. RAD/Chest 1 View (Portable) IMPRESSION: Bibasilar airspace opacities more prominent on the left suggesting bilateral lower lobe pneumonia which is improved since the previous study. Cardiomegaly. Electronically Signed: Mayra Madrid MD at 22:05 EDT ,
[2022-12-27 21:32] LABS: Anion Gap 7 (5-15); BUN 24 mg/dL (7-18); BUN/Creat Ratio 15.2 RATIO (10-20); Calcium,Total 8.2 mg/dL (8.5-10.1); Chloride 111 mmol/L (98-107); Creatinine, Serum 1.58 mg/dL (0.70-1.30); EST Glomerular Filtration Rate 49 mL/min (>60); Est Glom Filt Rate - Afr Amer 59 mL/min (>60); Glucose 111 mg/dL (74-106); Potassium 3.4 mmol/L (3.5-5.1); Sodium Level 141 mmol/L (136-145); Troponin-I HS (w/2H Reflex) 10163 pg/mL (3.0-78.0)
--- NOTE | 2022-12-27 21:33 | ED.RN ---
michael called from lab and troponin , dr. kaminski informed of same.
--- NOTE | 2022-12-27 21:37 | EKG12_ITS ---
Test Reason : CP Blood Pressure : / mmHG Vent. Rate : 101 BPM Atrial Rate : 101 BPM P-R Int : 148 ms QRS Dur : 090 ms QT Int : 384 ms P-R-T Axes : 054 -14 064 degrees QTc Int : 497 ms Sinus tachycardia Otherwise normal ECG Confirmed by MIGUEL MORENO, TR ([id number]), rewrite editor CARLOS GARCIA ([id number]) on 01/21/2023 2:13:06 PM Referred By: MALIHA Confirmed By:VAMSHI RIVERA MD
--- NOTE | 2022-12-27 21:37 | ED.VIS.CHEST ---
HPI History of Present Illness Chief Complaint: Chest Pain Detail of Chief Complaint: Chest pain Informant: patient Onset/Context/Timing Onset: - (Patient had intermittent chest pain has been seen here several times for chest pain since October) Activity at onset: unknown and - Timing: Intermittent Quality: Positive for Aching and Dull Location: Substernal Current Severity: Mild Maximum Severity: Moderate Worsened By: - (Unable to determine) Relieved By: Nothing Associated Symptoms: Positive for Nausea, Dyspnea and Cough; Negative for Vomiting, Diaphoresis, Fever, Lightheadedness, Acid Reflux or Palpitations Narrative Narrative: Patient is a 57-year-old male who has been seen several times for chest pain and had negative work-up. He presents today with chest pain that is in the middle of his chest described as a dull ache. He states it hurts. It does not radiate. There is associated cough and shortness of breath. His cough is nonproductive. He denies abdominal pain. He denies nausea or vomiting. His right lower extremity is chronically swollen. Per ER documentation October of this year right leg is significantly larger than left. Prior Similar Symptoms: Yes and - (Apparently no etiology was found) Recent Illness/Hospitalization: No PE Risk Factors: Positive for Prior DVT or PE [facility] Medical History Anemia in chronic illness Bladder dysfunction Bronchitis Chronic kidney disease, stage 3b CKD (chronic kidney disease), stage III Congenital nystagmus DVT (deep venous thrombosis) History of DVT (deep vein thrombosis) History of encephalopathy History of pulmonary embolism HTN (hypertension) Immunosuppressed status Mild intellectual disability Neurogenic bladder disorder Neutropenia Pancytopenia Pulmonary embolism Severe protein-calorie malnutrition Urinary retention Vocal cord dysfunction Home Medications mycophenolate mofetil 500 mg tablet 500 mg PO 0900,2100 Anti-Rejection 07/14/16 [History Last Taken 07/30/22] multivitamin 1 tab PO DAILY supplement 02/13/22 [History Last Taken 07/30/22] acetaminophen 325 mg tablet (Tylenol) 650 mg (2 x 325 mg) PO Q6H PRN PRN Pain 1-10 Or Fever>100.7 #0 tabs 04/21/22 [Rx Last Taken 06/02/22] lactulose 20 gram/30 mL oral solution 30 ml PO Q4 06/13/22 [History Last Taken 07/31/22] rifaximin 550 mg tablet (Xifaxan) 550 mg PO BID Check with primary doctor 07/16/22 [History Last Taken 07/30/22] sodium bicarbonate 650 mg tablet 1,300 mg PO TID Check with primary doctor 07/16/22 [History Last Taken 07/31/22] tacrolimus 1 mg capsule, immediate-release (Prograf) 0.5 mg PO Q12H Check with primary doctor 07/16/22 [History Last Taken 07/30/22] levofloxacin 750 mg tablet 750 mg PO DAILY #5 tabs 08/07/22 [Rx Last Taken Unknown] bisacodyl 10 mg rectal suppository 10 mg MS DAILY PRN constipation 11/01/22 [History Last Taken Unknown] bismuth subsalicylate 262 mg/15 mL oral suspension (Pepto-Bismol) 524 mg PO Q30M PRN GI DISTRESS 11/01/22 [History Last Taken Unknown] magnesium hydroxide 400 mg/5 mL oral suspension (Dulcolax (magnesium hydroxide)) 5 ml PO DAILY PRN constipation 11/01/22 [History Last Taken Unknown] mineral oil (Fleet Mineral Oil enema) 118 ml MS DAILY PRN constipation 11/01/22 [History Last Taken Unknown] mirtazapine 30 mg tablet 30 mg PO QHS 11/01/22 [History Last Taken Unknown] Allergy/AdvReac Type Severity Reaction Status Date / Time red dye Allergy PT UNSURE Verified 11/01/22 21:52 OF REACTION Family History Mother Hypertension Father Diabetes Surgical History Kidney transplant recipient Renal transplant recipient S/P arteriovenous (AV) fistula creation Social History household members: none housing: pen[facility]entiary Smoking Status: Never smoker second hand exposure: No alcohol intake: never substance use type: does not use caffeine: No ROS ROS ED Constitutional Constitutional ED: Denies chills, fever(s), subjective or sweats Eyes Eyes: Reports none ENT ENT ED: Reports sore throat; Denies ear pain or rhinorrhea Cardiovascular Cardiovascular: Reports as per HPI; Denies orthopnea or paroxysmal nocturnal dyspnea Respiratory/Chest Respiratory/Chest: Reports cough, dyspnea and dyspnea on exertion; Denies orthopnea or paroxysmal nocturnal dyspnea Gastrointestinal Gastrointestinal: Denies abdominal pain, nausea or vomiting Genitourinary Genitourinary ED: Denies dysuria, hematuria or urinary frequency Musculoskeletal Musculoskeletal: Denies back pain or neck pain Integumentary Denies rash Neurologic Neurologic: Reports weakness; Denies headache(s) Hematologic/Lymphatic Hematologic/Lymphatic: Denies easy bleeding or easy bruising EXAM Physical Exam Const Vital Signs: 12/27/22 20:55 Temperature 97 F L Temperature Source Temporal Pulse Rate 104 H Respiratory Rate 16 Blood Pressure 176/88 H Blood Pressure Mean 117 Pulse Ox 93 Positive well nourished, well developed, obese and unkempt General Appearance ED: unkempt, well developed, NAD and pallor Nutritional Appearance: obese HEENT Reports TM's clear and moist mucous membranes normocephalic and atraumatic Tympanic Membrane ED: Yes TM's clear Eyes PERRL and EOMs intact bilaterally Eyes Narrative: Patient has congenital horizontal nystagmus General Eye ED: Yes pale conjunctiva; Negative for scleral icterus Neck no lymphadenopathy and supple Chest Wall inspection of chest normal and palpation of chest normal Resp normal respiratory effort and clear to auscultation bilaterally Cardio regular rhythm, S1 normal heart sound, S2 normal heart sound and no murmurs Rate: tachycardic Peripheral Pulses: pulses 2+ throughout GI normal to inspection, nondistended, normoactive bowel sounds, soft to palpation, non-tender, non-distended and no masses; Negative for hepatosplenomegaly GI Narrative: No abdominal bruit or pulsatile mass. Back/Spine no CVA tenderness Extremity Extremity Narrative: Right lower extremity is swollen compared to the left this was noted on ER dictation November 01. Neuro oriented x3 and CN's II-XII intact bilaterally Sensorium / Orientation: awake and alert Psych mental status grossly normal Appearance: unkempt Skin no wounds General Skin Exam: pallor; Negative for jaundice MDM MDM MDM Narrative Medical decision making narrative: Differential diagnosis includes cardiac etiology versus noncardiac. Noncardiac would include peptic ulcer disease, GERD, pulmonary especially since he complains of cough. Patient is difficult to obtain a history from. Will perform troponin to rule out cardiac etiology. CBC because he appears pale to assess for anemia and has history of pancytopenia. Electrolyte panel to assess renal function. Lab Data Attestation: I reviewed the patient's lab results. Lab results narrative: CBC is unremarkable. Basic metabolic panel is remarkable for elevated BUN and creatinine at 24 1.58 with a GFR of 49. His troponin is 10,163. Comparing laboratory results to prior there is no significant rise in his creatinine. Labs: Laboratory Results - last 24 hr 12/27/22 20:45 WBC 5.5 RBC 4.34 L Hgb 12.8 L Hct 38.0 L MCV 87.6 MCH 29.5 MCHC 33.7 RDW Std Deviation 50.4 H RDW Coeff of Anil 15.7 H Plt Count 155 MPV 11.0 Immature Gran % (Auto) 0.200 Neut % (Auto) 57.7 Lymph % (Auto) 19.5 Estill % (Auto) 16.4 H Eos % (Auto) 5.3 H Baso % (Auto) 0.9 Absolute Neuts (auto) 3.2 Absolute Lymphs (auto) 1.07 Nucleated RBC % 0 Sodium 141 Potassium 3.4 L Chloride 111 H Carbon Dioxide 23.0 Anion Gap 7 BUN 24 H Creatinine 1.58 H Est GFR (MDRD) Af Amer 59 L Est GFR (MDRD) Non-Af 49 L BUN/Creatinine Ratio 15.2 Glucose 111 H Calcium 8.2 L Troponin I High Sens 61245 H* Radiography Chest X-Ray - ED: 1 View (X-ray interpreted by me at 2152) and Read by ED Physician (Chest x-ray reveals chronic changes and unchanged from November 01, 2022. There is no into pneumothorax. Cardiac silhouette size unremarkable. Osseous structures are unremarkable.) Rhythm Strip Rhythm Strip: Sinus Tach Rate: 106 EKG Initial EKG: Attestation: I personally reviewed and interpreted this EKG as follows: Interpretation: Sinus Tachycardia (Heart rate is 101. Parables 148 ms per cures duration 90 ms for QT duration 394 ms. Gardner is normal. There is artifact and possibly some mild nonseptic ST-T wave changes. There is no obvious ischemic changes noted.) Management Discussion w/another healthcare provider: Hospitalist Treatment and Re-Evaluation :: Since patient having persistent pain he was started on nitroglycerin drip and was anticoagulated with heparin. 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, Discussing w/Consultants and Arranging Admission or Transfer Discharge Plan Triage Chief Complaint: Chest Pain ED Provider: Denys Reed Dx/Rx/DC Orders Clinical Impression: Chronic kidney disease, Non-ST elevated myocardial infarction (non-STEMI), Debility, Hypertension Prescriptions: No Action mycophenolate mofetil 500 MG tablet 500 mg PO 0900,2100 Patient Comments: anti rejection multivitamin Tablet 1 tab PO DAILY acetaminophen [Tylenol] 325 mg Tablet 650 mg PO Q6H PRN PRN (Reason: Pain 1-10 Or Fever>100.7) Qty: 0 0RF lactulose 20 gram/30 mL solution 30 ml PO Q4 tacrolimus [Prograf] 1 mg Capsule 0.5 mg PO Q12H sodium bicarbonate 650 mg tablet 1,300 mg PO TID Xifaxan 550 mg tablet 550 mg PO BID levofloxacin 750 mg tablet 750 mg PO DAILY Qty: 5 0RF mirtazapine 30 mg tablet 30 mg PO QHS bismuth subsalicylate [Pepto-Bismol] 262 mg/15 mL suspension 524 mg PO Q30M PRN (Reason: GI DISTRESS) Rx Instructions: do not exceed 8 doses in a 24 hour period bisacodyl 10 mg suppository 10 mg MS DAILY PRN (Reason: constipation) mineral oil [Fleet Mineral Oil] Enema 118 ml MS DAILY PRN (Reason: constipation) Rx Instructions: discard any unused portion magnesium hydroxide [Dulcolax (magnesium hydroxide)] 400 mg/5 mL suspension 5 ml PO DAILY PRN (Reason: constipation) Primary Care Provider: Mike Bella Referrals: Mike Bella MD [Primary Care Provider] -
[2022-12-27 21:53] VITALS: PULSE 90; RESP 23; O2SAT 94
[2022-12-27] MEDS: Heparin Injection (Vial) 5,000 UNIT/ML VIAL 4000 UNIT IV (22:08)
--- NOTE | 2022-12-27 22:11 | HP.PCM.HOS_ITS ---
HPI - General General Date of Admission: 12/27/22 Date of Service: 12/27/22 Chief Complaint: Chest pain HPI Narrative ROOSEVELT GARCIA, is a 57 M who presented to the emergency department at [facility] on 12/27/2022 with a chief complaint of chest pain. He reported it was dull and aching in substernal area and was rating it at 5 out of 10 when I evaluated him. He denied any radiation but has had some associated shortness of breath but no nausea or vomiting. No associated diaphoresis either. He has had lower extremity edema but this is chronic in nature. He had been on diuretics previously but these were discontinued to preserve his renal function as he has history of renal transplant with some compromised renal function currently. The patient has been on Levaquin for pneumonia and it appears that his chest x-ray is improving. Vital signs on presentation showed temperature of 97, heart rate was 104 with repeat at 94, blood pressure was 176/88, respiratory was 16 and oxygen saturations were 93 to 94% on room air. CBC was unremarkable other than a stable chronic anemia which when compared to previous was the same. Coags are pending. Chemistry panel showed mild hypokalemia with a potassium of 3.4. His BUN was 24 with a serum creatinine of 1.58 which is in his baseline range. Initial troponin was 10,163. EKG was normal sinus rhythm without any ST-T wave changes concerning for acute ischemia and normal intervals. Chest x-ray showed bilateral basilar airspace opacities more prominent on the left consistent with pneumonia which had improved from previous study. [facility] Medical History Anemia in chronic illness Bladder dysfunction Bronchitis Chronic kidney disease, stage 3b CKD (chronic kidney disease), stage III Congenital nystagmus DVT (deep venous thrombosis) History of DVT (deep vein thrombosis) History of encephalopathy History of pulmonary embolism HTN (hypertension) Immunosuppressed status Mild intellectual disability Neurogenic bladder disorder Neutropenia Pancytopenia Pulmonary embolism Severe protein-calorie malnutrition Urinary retention Vocal cord dysfunction Home Medications mycophenolate mofetil 500 mg tablet 500 mg PO 0900,2100 Anti-Rejection 07/14/16 [History Last Taken 07/30/22] multivitamin 1 tab PO DAILY supplement 02/13/22 [History Last Taken 07/30/22] acetaminophen 325 mg tablet (Tylenol) 650 mg (2 x 325 mg) PO Q6H PRN PRN Pain 1- 10 Or Fever>100.7 #0 tabs 04/21/22 [Rx Last Taken 06/02/22] lactulose 20 gram/30 mL oral solution 30 ml PO Q4 hyperammonemia 06/13/22 [History Last Taken 07/31/22] rifaximin 550 mg tablet (Xifaxan) 550 mg PO BID Check with primary doctor 07/16/22 [History Last Taken 07/30/22] sodium bicarbonate 650 mg tablet 1,300 mg PO TID Check with primary doctor 07/16/22 [History Last Taken 07/31/22] tacrolimus 1 mg capsule, immediate-release (Prograf) 0.5 mg PO Q12H Check with primary doctor 07/16/22 [History Last Taken 07/30/22] bisacodyl 10 mg rectal suppository 10 mg FL DAILY PRN constipation 11/01/22 [History Last Taken Unknown] bismuth subsalicylate 262 mg/15 mL oral suspension (Pepto-Bismol) 524 mg PO Q30M PRN GI DISTRESS 11/01/22 [History Last Taken Unknown] magnesium hydroxide 400 mg/5 mL oral suspension (Dulcolax (magnesium hydroxide)) 5 ml PO DAILY PRN constipation 11/01/22 [History Last Taken Unknown] mineral oil (Fleet Mineral Oil enema) 118 ml FL DAILY PRN constipation 11/01/22 [History Last Taken Unknown] mirtazapine 30 mg tablet 30 mg PO QHS depression 11/01/22 [History Last Taken Unknown] Allergy/AdvReac Type Severity Reaction Status Date / Time red dye Allergy PT UNSURE Verified 11/01/22 21:52 OF REACTION Family History Mother Hypertension Father Diabetes Surgical History Kidney transplant recipient Renal transplant recipient S/P arteriovenous (AV) fistula creation Social History household members: none housing: skilled nursing Smoking Status: Never smoker second hand exposure: No alcohol intake: never substance use type: does not use caffeine: No ROS Review of Systems ROS Unobtainable: due to mental condition and other Details: Patient is extremely hard of hearing all I could get wet from him as he was having ongoing chest pain that he said was 5 Vital Signs Vital Signs Vital Signs: 12/27/22 20:55 Temperature 97 F L Temperature Source Temporal Pulse Rate 104 H Respiratory Rate 16 Blood Pressure 176/88 H Blood Pressure Mean 117 Pulse Ox 93 Weight Weight: 93.213 kg Body Mass Index (BMI) 27.8 Physical Exam Const alert, no apparent distress, average body habitus and well nourished Constitutional Narrative: Middle-aged, white male, sitting up in bed, appears comfortable at this time, nontoxic, sister and nursing at bedside General Appearance: cooperative HEENT normocephalic, head/scalp atraumatic and moist oral mucous membranes; Negative for hearing grossly normal bilaterally HEENT Narrative: Marked hearing loss is fair, Mallampati 2, no thrush Eyes PERRL, EOMs intact bilaterally and conjunctivae normal Eyes Narrative: No scleral icterus Neck no lymphadenopathy and supple Neck Narrative: Trachea midline, no thyroid enlargement Resp normal respiratory effort, no retractions, no use of accessory muscles and clear to auscultation bilaterally Auscultation: Negative for rales, rhonchi or wheezes Cardio regular rate, regular rhythm, S1 normal heart sound, S2 normal heart sound, no murmurs, no rub, no gallops and no clicks GI normal to inspection, nondistended, normoactive bowel sounds, soft to palpation and non-tender Extremity Extremity Narrative: Bilateral lower extremity edema, right greater than left, no tenderness in the calf, no cyanosis or clubbing, right upper extremity fistula with palpable thrill and positive bruit on auscultation Skin no rashes or lesions noted, no wounds, skin turgor normal, no jaundice, no petechiae and no mottling Neuro oriented x3, CN's II-XII intact bilaterally, moves all extremities and no focal motor deficits Neuro Narrative: Speech is somewhat delayed however responses are appropriate when he can hear you however this is difficult right now as he does not have his hearing aids in- currently at his baseline Psych affect normal Psych Narrative: Very pleasant, eye contact is good Results Lab / Micro Data 12/27/22 20:45 12/27/22 20:45 Labs: Laboratory Results - last 24 hr 12/27/22 20:45: WBC 5.5, RBC 4.34 L, Hgb 12.8 L, Hct 38.0 L, MCV 87.6, MCH 29.5, MCHC 33.7, RDW Std Deviation 50.4 H, RDW Coeff of Anil 15.7 H, Plt Count 155, MPV 11.0, Immature Gran % (Auto) 0.200, Neut % (Auto) 57.7, Lymph % (Auto) 19.5, Emanuel % (Auto) 16.4 H, Eos % (Auto) 5.3 H, Baso % (Auto) 0.9, Absolute Neuts (auto) 3.2, Absolute Lymphs (auto) 1.07, Nucleated RBC % 0, Sodium 141, Potassium 3.4 L, Chloride 111 H, Carbon Dioxide 23.0, Anion Gap 7, BUN 24 H, Creatinine 1.58 H, Est GFR (MDRD) Af Amer 59 L, Est GFR (MDRD) Non-Af 49 L, BUN/Creatinine Ratio 15.2, Glucose 111 H, Calcium 8.2 L, Troponin I High Sens 28604 H* Rhythm Strip Rhythm Strip: Sinus Tach Rate: 106 Radiology Impression Chest X-Ray 12/27/22 21:15 IMPRESSION: Bibasilar airspace opacities more prominent on the left suggesting bilateral lower lobe pneumonia which is improved since the previous study. Cardiomegaly. Electronically Signed: Mayra Madrid MD at 22:05 EDT Reading Location ID and State: [facility] / [place] Tel , Service support , Assessment & Plan Assessment/Plan (1) Non-ST elevated myocardial infarction (non-STEMI): (2) Hypertension: (3) Hypokalemia: PLAN: Plan NSTEMI -Patient presented with chest pain that was in the middle of her chest that described as a dull ache with no radiation with associated shortness of breath and diaphoresis -Initial troponin was greater than 10,000 -Start heparin drip -Start nitro drip -Full aspirin given the emergency department and will continue baby aspirin tomorrow -Check lipids -Start atorvastatin 80 mg -Start metoprolol 25 mg p.o. twice daily -Check echocardiogram -N.p.o. after midnight -Consult cardiology for probable cardiac catheterization to be performed tomorrow Hypokalemia -Potassium was 3.4 on admission -We will give 40 mill equivalents p.o. potassium and recheck in a.m. -Check a.m. 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 -Baseline serum creatinine is running between 1.3 and 1.5 -Current serum creatinine 1.58 -Hydrate with LR at 100 cc/h in preparation for cardiac catheterization -Continue oral bicarb -Continue home tacrolimus, CellCept -Monitor renal function closely with need for contrast and cardiac catheterization History of severe Malnutrition -Patient has gained considerable amount of weight -I suspect his nutritional status has improved -Consult dietitian History of atonic bladder -Self caths regularly -We will place Ga with patient's hospitalized Chronic anemia -Baseline hemoglobin is between 12 and 13 -Hemoglobin appears to be stable -Continue to monitor Hypertension -Patient is currently not taking anything -Nitro drip -Start metoprolol 25 mg p.o. twice daily -Depending on blood pressures could consider additional lisinopril tomorrow after cath Depression -Continue Remeron MRDD -Lives in an ECF at baseline -Brother and sister are healthcare power of associate attorney -Brother is currently out of town and sister will need notified DVT prophylaxis -Full anticoagulation with heparin drip CODE STATUS -Full code Charges/Coding Visit Charges Inpatient E&M: 62812 Init Hosp L3
[2022-12-27] MEDS: HEPARIN/D5w 25,000 UNITS 25,000 UNITS/250 ML IV.SOLN. 10 UNITS CONT INF (22:16)
[2022-12-27 22:25] VITALS: BP 184/112
[2022-12-27] MEDS: Nitroglycerin Infusion 250 ML 3 MG CONT INF (22:25)
[2022-12-27] MEDS: Aspirin 81 MG TAB.CHEW 324 MG PO (22:26)
--- NOTE | 2022-12-27 22:48 | ED.RN ---
Lab called stating that the Blue tube was to short. I advised lab that his heparin was going and that his lab would be elevated,
[2022-12-27 23:09] LABS: Reflex Troponin-HS? (from REC) Y
--- NOTE | 2022-12-27 23:15 | ED.RN ---
Per Dr. Reed. Not to draw second PTT due to that the value will be abnormal. Lab notified.
[2022-12-27 23:18] VITALS: BP 177/106; PULSE 94; RESP 23; TEMP 36.9; O2SAT 94
[2022-12-27 23:38] LABS: International Normalized Ratio 1.2; Prothrombin Time (Protime)PT. 14.9 SECONDS (11.7-14.9)
[2022-12-27 23:39] LABS: Partial Thromboplast Time 34.4 Seconds (24.1-36.2)
[2022-12-28] VITALS (44 sets, daily range): BP systolic 86–169; BP diastolic 52–158; PULSE 15–132; RESP 16–22; TEMP 36.4–37.2; O2SAT 91–100; BMI 27.2; BMI 27.3
--- NOTE | 2022-12-28 00:06 | EKG12_ITS ---
Test Reason : RHYTHM CHG Blood Pressure : / mmHG Vent. Rate : 142 BPM Atrial Rate : 000 BPM P-R Int : 000 ms QRS Dur : 088 ms QT Int : 264 ms P-R-T Axes : 000 016 092 degrees QTc Int : 406 ms Critical Test Result: High HR Atrial fibrillation with rapid ventricular response Nonspecific T wave abnormality Abnormal ECG When compared with ECG of 28-DEC-2022 00:56, MANUAL COMPARISON REQUIRED, DATA IS UNCONFIRMED Confirmed by SUSAN MORENO, RAEANN ([id number]), managing editor CARLOS GARCIA ([id number]) on 02/15/2023 1:04:36 PM Referred By: DR NICHOLS Confirmed By:RAEANN DAVIS MD
--- NOTE | 2022-12-28 00:06 | VDLE_ITS ---
Reason For Study: Bilateral leg swelling RIGHT LEFT GSV is normal. GSV is normal. CFV is compressible, spontaneous, phasic, CFV is compressible, spontaneous, phasic, competent and demonstrates normal competent, and demonstrates normal augmentation. augmentation. FV is compressible, spontaneous, phasic, FV is compressible, spontaneous, phasic, competent and demonstrates normal competent and demonstrates normal augmentation. augmentation. POP V is compressible, spontaneous, phasic, POP V is compressible, spontaneous, phasic, competent and demonstrates normal competent and demonstrates normal augmentation. augmentation. T/P Trunk is compressible. T/P Trunk is compressible. PTV is compressible. PTV is compressible. RT PerV is compressible. LT PerV is compressible. Procedure This is a venous duplex using B-mode, color flow and spectral Doppler. Exam performed portable in patient room. A preliminary report was called and/or faxed to [facility]. VL/Venous Duplex US - Frederic Extrem Interpretation Summary Deep veins of the bilateral lower extremities are patent and compressible segme ntally. There is no evidence of bilateral lower extremity deep vein thrombosis. The bilateral great saphenous veins appear patent and compressible segmentally. Ordering Physician: Stella Bell Referring Physician: Mike Bella Performed By: Alicia Méndez RVT
[2022-12-28] MEDS: Lidocaine Jelly 2% 20 ML Syringe (URO-JET) 1 APPLIC TOPICAL (00:09)
[2022-12-28 00:10] LABS: Troponin-I HS 24228 pg/mL (3.0-78.0)
[2022-12-28] MEDS: Lactated Ringers 1,000 ML 100 ML IV (01:04)
[2022-12-28] MEDS: Lactulose 20 GM/30 ML UDC PO ×5 (01:18→21:18)
[2022-12-28] MEDS: Metoprolol Tartrate 25 MG Tablet PO ×3 (01:18→21:19)
[2022-12-28] MEDS: Atorvastatin Calcium 80 MG Tablet PO ×2 (01:19→21:19)
[2022-12-28] MEDS: Tacrolimus 0.5 MG Capsule PO ×3 (01:19→21:19)
[2022-12-28] MEDS: Potassium Chloride Oral Tablet 20 MEQ 40 MEQ PO (01:26)
[2022-12-28 04:39] LABS: Partial Thromboplast Time 61.1 Seconds (24.1-36.2)
[2022-12-28 04:42] LABS: Hematocrit 35.2 % (40-54); Hemoglobin 11.3 g/dL (13.0-16.5); Mean Corp Hgb Conc 32.1 g/dL (32-36); Mean Corpuscular Hgb 28.4 pg (27.0-32.0); Mean Corpuscular Volume 88.4 fL (80-94); Mean Platelet Vol. 11.3 fl (6.2-12.0); Platelet Count 142 K/mm3 (150-450); RBC Distribution Width CV 15.8 % (11.6-14.6); RBC Distribution Width SD 51.1 fl (35.1-43.9); Red Blood Count 3.98 M/mm3 (4.6-6.2); White Blood Count 5.4 K/mm3 (4.4-11.0)
[2022-12-28] MEDS: 0.9% Normal Saline 1,000 ML 100 ML IV ×3 (04:44→23:16)
--- NOTE | 2022-12-28 05:11 | PCM.HOSP.N ---
Hospitalist Note After admission, patient developed A-fib with RVR. Rates were in the 120s. Metoprolol 2.5 mg x 1 dose given to assess effect on rate. Patient is on heparin drip for NSTEMI. Echocardiogram is already pending. TSH is pending. Suspect arrhythmia may be due to NSTEMI. Infarct appears to be quite large based on troponin.
[2022-12-28] MEDS: Metoprolol Tartrate 5 MG/5 ML Vial IV (05:16)
[2022-12-28 05:23] LABS: ALB/GLOB Ratio 0.7 RATIO (0.9-2.4); AST(SGOT) 95 U/L (15-37); Alanine Aminotransfer ALT/SGPT 46 U/L (16-61); Albumin, Serum 2.2 g/dL (3.2-5.0); Alkaline Phosphatase 77 U/L (45-117); Anion Gap 8 (5-15); BUN 24 mg/dL (7-18); BUN/Creat Ratio 16.6 RATIO (10-20); Calcium,Total 7.7 mg/dL (8.5-10.1); Chloride 114 mmol/L (98-107); Cholesterol 187 mg/dL (200); Creatinine, Serum 1.45 mg/dL (0.70-1.30); EST Glomerular Filtration Rate 54 mL/min (>60); Est Glom Filt Rate - Afr Amer 65 mL/min (>60); Estimated Creatinine Clearance 63.18 ml/min; Globulin 3.1 g/dL (2.2-4.2); Glucose 113 mg/dL (74-106); High Density Lipoprotein 55 mg/dL; Magnesium 1.4 mg/dL (1.6-2.6); Phosphorus 3.7 mg/dL (2.5-4.9); Potassium 3.6 mmol/L (3.5-5.1); Protein, Total 5.3 g/dL (6.4-8.2); Sodium Level 143 mmol/L (136-145); Thyroid Stim Hormone (TSH) 1.44 uIU/mL (0.358-3.74); Triglycerides 59 mg/dL; Very Low Density Lipoprotein 12 mg/dL (5-40)
[2022-12-28 05:36] LABS: Troponin-I HS 24107 pg/mL (3.0-78.0)
--- NOTE | 2022-12-28 05:55 | ECHOD_ITS ---
Reason For Study: NSTEMI Procedure This was a 2D Doppler, Color Flow transthoracic echocardiogram. Exam performed portable in patient room. Left Ventricle Normal LV size. The estimated ejection fraction is 60 %. No evidence for diastolic dysfunction. No regional wall motion abnormalities noted. Right Ventricle Normal RV size. Normal systolic function. Atria The left atrium is moderately enlarged. The right atrium is moderately enlarged. No doppler evidence for ASD. Mitral Valve There is no mitral valve stenosis. Trivial mitral valve insufficiency. Tricuspid Valve There is no tricuspid stenosis. Trivial tricuspid valve insufficiency. Pulmonary artery systolic pressure is 25 mmHg. Aortic Valve Trisinus/trileaflet aortic valve. There is no aortic stenosis. No aortic valve insufficiency. Pulmonic Valve There is no pulmonic valvular stenosis. No pulmonic valve insufficiency. Great Vessels Normal aortic root. Pericardium/Pleural No pericardial effusion. Medication NO DEFINITY, Renal Transplant. MMode/2D Measurements & Calculations LVIDd: 4.6 cm IVSd: 1.7 cm LA dimension: 4.6 cm LVIDs: 2.8 cm LVPWd: 1.4 cm RVDd: 4.2 cm FS: 38.4 % LAV(MOD-bp): 108.2 ml LVAd ap4: 33.0 cm2 SV(MOD-sp4): 56.0 ml LAV(MOD-bp) Indexed: 50.2 ml/m2 LVLd ap4: 9.0 cm LAV(MOD-sp2): 109.4 ml EDV(MOD-sp4): 97.7 ml LAV(MOD-sp4): 102.0 ml EDV(sp4-el): 102.3 ml LVAs ap4: 19.9 cm2 LVLs ap4: 7.9 cm ESV(MOD-sp4): 41.7 ml ESV(sp4-el): 42.4 ml EF(MOD-sp4): 57.3 % EF(sp4-el): 58.6 % SV(sp4-el): 59.9 ml LA A4 area: 30.3 cm2 RA A4 area: 31.5 cm2 TAPSE: 1.9 cm Doppler Measurements & Calculations MV E max alek: 87.8 cm/sec MV V2 max: 97.0 cm/sec Ao V2 max: 141.1 cm/sec MV max P.8 mmHg Ao max P.1 mmHg MV V2 mean: 59.2 cm/sec Ao V2 mean: 94.1 cm/sec MV mean P.7 mmHg Ao mean P.2 mmHg MV V2 VTI: 23.2 cm Ao V2 VTI: 20.7 cm AV (velocity ratio): 0.83 LV V1 max: 110.8 cm/sec MR max alek: 353.5 cm/sec PA V2 max: 110.4 cm/sec LV V1 max P.0 mmHg MR max P.0 mmHg LV V1 mean P.9 mmHg LV V1 mean: 79.0 cm/sec LV V1 VTI: 17.2 cm TR max alek: 231.0 cm/sec TR max P.3 mmHg ECHO/Echo Complete Interpretation Summary The estimated ejection fraction is 60 %. No evidence for diastolic dysfunction. The left atrium is moderately enlarged. The right atrium is moderately enlarged. Trivial mitral valve insufficiency. Ordering Physician: Stella Bell Referring Physician: Mike Bella Performed By: Chaz Thao RCS
[2022-12-28] MEDS: Multivitamins,Therapeutic Tablet 1 TABLET PO (08:15)
[2022-12-28] MEDS: Aspirin E.C. 81 MG Tablet PO (08:15)
[2022-12-28] MEDS: Menthol/Lanolin/Calamine/Znox 113 GM Tube 1 APPLIC TOPICAL ×2 (09:40→21:18)
[2022-12-28] MEDS: Mycophenolate Mofetil 250 MG Capsule 500 MG PO ×2 (09:40→21:18)
[2022-12-28] MEDS: rifAXIMin 550 MG Tablet PO ×2 (09:40→21:19)
--- NOTE | 2022-12-28 10:01 | PCM.PN.HOSP ---
Reason for Visit Reason for Visit: Diagnoses Hypokalemia (12/27/22) Essential (primary) hypertension (12/27/22) Non-ST elevation (NSTEMI) myocardial infarction (12/27/22) Subjective Subjective Continues to have some chest pain also feels phlegm buildup in his throat Objective Data Objective Data Vital Signs: Vital Signs Temp Pulse Resp BP Pulse Ox O2 Del Method O2 Flow Rate 98.6 F 96 17 104/63 96 Nasal Cannula 2 12/28/22 08:00 12/28/22 08:15 12/28/22 08:11 12/28/22 09:00 12/28/22 03:15 12/28/22 08:11 12/28/22 08:11 Oxygen Flow Rate (L/min) 2 Oxygen Delivery Method Nasal Cannula Weight: 91.3 kg Body Mass Index (BMI) 27.3 Intake & Output: Intake and Output for Last 24 Hours 12/26/22 12/27/22 12/28/22 23:59 23:59 23:59 Intake Total 753.38 / 753.38 Output Total 1400 / 1400 Balance -646.62 / -646.62 Lab / Micro Data 12/28/22 04:15 12/28/22 04:15 Labs: Laboratory Results - last 24 hr 12/27/22 20:45: WBC 5.5, RBC 4.34 L, Hgb 12.8 L, Hct 38.0 L, MCV 87.6, MCH 29.5, MCHC 33.7, RDW Std Deviation 50.4 H, RDW Coeff of Anil 15.7 H, Plt Count 155, MPV 11.0, Immature Gran % (Auto) 0.200, Neut % (Auto) 57.7, Lymph % (Auto) 19.5, Glenn % (Auto) 16.4 H, Eos % (Auto) 5.3 H, Baso % (Auto) 0.9, Absolute Neuts (auto) 3.2, Absolute Lymphs (auto) 1.07, Nucleated RBC % 0, PT 14.9, INR 1.2, APTT 34.4, Sodium 141, Potassium 3.4 L, Chloride 111 H, Carbon Dioxide 23.0, Anion Gap 7, BUN 24 H, Creatinine 1.58 H, Est GFR (MDRD) Af Amer 59 L, Est GFR (MDRD) Non-Af 49 L, BUN/Creatinine Ratio 15.2, Glucose 111 H, Calcium 8.2 L, Troponin I High Sens [id number] H* 12/27/22 22:02: PT Cancelled, INR Cancelled, APTT Cancelled 12/27/22 23:34: Troponin I High Sens [id number] H* 12/28/22 03:06: Troponin I High Sens 97725 H* 12/28/22 04:15: WBC 5.4, RBC 3.98 L, Hgb 11.3 L, Hct 35.2 L, MCV 88.4, MCH 28.4, MCHC 32.1, RDW Std Deviation 51.1 H, RDW Coeff of Anil 15.8 H, Plt Count 142 L, MPV 11.3, APTT 61.1 H, Sodium 143 12/28/22 04:15: Sodium Cancelled, Potassium 3.6 12/28/22 04:15: Potassium Cancelled, Chloride 114 H 12/28/22 04:15: Chloride Cancelled, Carbon Dioxide 21.0 12/28/22 04:15: Carbon Dioxide Cancelled, Anion Gap 8 12/28/22 04:15: Anion Gap Cancelled, BUN 24 H 12/28/22 04:15: BUN Cancelled, Creatinine 1.45 H 12/28/22 04:15: Creatinine Cancelled, Estim Creat Clear Calc 63.18 12/28/22 04:15: Estim Creat Clear Calc Cancelled, Est GFR (MDRD) Af Amer 65 12/28/22 04:15: Est GFR (MDRD) Af Amer Cancelled, Est GFR (MDRD) Non-Af 54 L 12/28/22 04:15: Est GFR (MDRD) Non-Af Cancelled, BUN/Creatinine Ratio 16.6 12/28/22 04:15: BUN/Creatinine Ratio Cancelled, Glucose 113 H 12/28/22 04:15: Glucose Cancelled, Calcium 7.7 L 12/28/22 04:15: Calcium Cancelled, Phosphorus 3.7 12/28/22 04:15: Phosphorus Cancelled, Magnesium 1.4 L 12/28/22 04:15: Magnesium Cancelled, Total Bilirubin 1.50 H, AST 95 H, ALT 46, Alkaline Phosphatase 77, Total Protein 5.3 L, Albumin 2.2 L, Globulin 3.1, Albumin/Globulin Ratio 0.7 L, Triglycerides 59, Cholesterol 187, LDL Cholesterol 120, VLDL Cholesterol 12, HDL Cholesterol 55, TSH 1.44 Radiography Diagnostic Testing: Radiology Impression Chest X-Ray 12/27/22 21:15 IMPRESSION: Bibasilar airspace opacities more prominent on the left suggesting bilateral lower lobe pneumonia which is improved since the previous study. Cardiomegaly. Electronically Signed: Mayra Madrid MD at 22:05 EDT , Rhythm Strip Rhythm Strip: Sinus Tach Rate: 106 Physical Exam Narrative General: Alert, answers questions sometimes requires prompting x2 HEENT: Atraumatic, normocephalic Eyes: Anicteric, normal conjunctiva, extraocular movements grossly intact Neck: Supple Respiratory: Clear to auscultation bilaterally, does send to have some phlegm in his throat however Cardiovascular: Intermittent accelerations GI: Soft, nontender, nondistended Extremities: Slight swelling in lower extremities Musculoskeletal: Moving all extremities Neuro: No overt focal neurological deficits Skin: No rashes appreciated Psych: Cooperative Assessment & Plan Assessment/Plan (1) Non-ST elevated myocardial infarction (non-STEMI): (2) Hypertension: (3) Hypokalemia: PLAN: Plan NSTEMI -Patient presented with chest pain that was in the middle of her chest that described as a dull ache with no radiation with associated shortness of breath and diaphoresis -Initial troponin was greater than 10,000 -Start heparin drip -Start nitro drip -Full aspirin given the emergency department and will continue baby aspirin tomorrow -Check lipids -Start atorvastatin 80 mg -Start metoprolol 25 mg p.o. twice daily -Check echocardiogram -N.p.o. after midnight -Consult cardiology for probable cardiac catheterization to be performed tomorrow -12/28: Troponin peaked at 24,228 with heparin and nitroglycerin drips, cardiology consulted, likely for Today afib w/ rvr -Developed after admission and he was given metoprolol x1 which was helpful. Other work-up as above Hypokalemia -Potassium was 3.4 on admission -We will give 40 mill equivalents p.o. potassium and recheck in a.m. -Check a.m. 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 -Baseline serum creatinine is running between 1.3 and 1.5 -Current serum creatinine 1.58 -Hydrate with LR at 100 cc/h in preparation for cardiac catheterization -Continue oral bicarb -Continue home tacrolimus, CellCept -Monitor renal function closely with need for contrast and cardiac catheterization -12/28: On home medications, fluids, will monitor closely with need for contrast during cath History of severe Malnutrition -Patient has gained considerable amount of weight -I suspect his nutritional status has improved -Consult dietitian History of atonic bladder -Self caths regularly -We will place Ga with patient's hospitalized Chronic anemia -Baseline hemoglobin is between 12 and 13 -Hemoglobin appears to be stable -Continue to monitor Hypertension -Patient is currently not taking anything -Nitro drip -Start metoprolol 25 mg p.o. twice daily -Depending on blood pressures could consider additional lisinopril tomorrow after cath -12/28: BP well controlled Depression -Continue Remeron MRDD -Lives in an ECF at baseline -Brother and sister are healthcare power of trademark attorney -Brother is currently out of town and sister will need notified DVT prophylaxis -Full anticoagulation with heparin drip CODE STATUS -Full code
[2022-12-28 10:29] LABS: Partial Thromboplast Time 59.1 Seconds (24.1-36.2)
--- NOTE | 2022-12-28 11:06 | CASEMGMT ---
[facility] if [facility] is recommended is as follows: [facility], [place], [facility], [facility], [facility], [facility], [facility] ([facility]), and . Joanna Lee, Discharge Planning Asst.
--- NOTE | 2022-12-28 11:15 | NURSING ---
To labeling strategist.
--- NOTE | 2022-12-28 11:28 | PCM.CONS.C ---
Assessment & Plan Assessment/Plan (1) Non-ST elevated myocardial infarction (non-STEMI): PLAN: We will proceed with coronary angiography. Risks and benefits including the risk of worsening renal failure and failure of the transplanted kidney was explained to the patient and his family in detail. Patient and family understand the risks and benefits and wished to proceed. (2) Atrial fibrillation: QUALIFIERS: Atrial fibrillation type: paroxysmal Qualified Code(s): I48.0 - Paroxysmal atrial fibrillation PLAN: We will check a 2D echo. We will see if beta-mino is adequate for rate control. He will also need anticoagulation. If he ends up needing triple therapy, we will keep him on Plavix and will have to look into whether his antirejection medications will interfere with his oral antiplatelet therapy or use of novel oral anticoagulants. HPI Consult Data Date of Consult: 12/28/22 HPI Narrative Reason for Consultation: non STEMI HPI Narrative: ROOSEVELT GARCIA, is a 57 M who presents with chest pain. Patient has history of MRDD, hypertension, renal transplantation with CKD, history of protein calorie malnutrition, history of encephalopathy. Patient's high-sensitivity troponin peaked at around 24,000. Patient however continues to have about 4/10 chest pain despite being on a nitroglycerin drip. He went into A-fib with RVR and was given as needed IV metoprolol that has brought his heart rate into to 110-120. [facility] Medical History Anemia in chronic illness Bladder dysfunction Bronchitis Chronic kidney disease, stage 3b CKD (chronic kidney disease), stage III Congenital nystagmus DVT (deep venous thrombosis) History of DVT (deep vein thrombosis) History of encephalopathy History of pulmonary embolism HTN (hypertension) Immunosuppressed status Mild intellectual disability Neurogenic bladder disorder Neutropenia Pancytopenia Pulmonary embolism Severe protein-calorie malnutrition Urinary retention Vocal cord dysfunction Home Medications mycophenolate mofetil 500 mg tablet 500 mg PO 0900,2100 Anti-Rejection 07/14/16 [History Last Taken 07/30/22] multivitamin 1 tab PO DAILY supplement 02/13/22 [History Last Taken 07/30/22] acetaminophen 325 mg tablet (Tylenol) 650 mg (2 x 325 mg) PO Q6H PRN PRN Pain 1-10 Or Fever>100.7 #0 tabs 04/21/22 [Rx Last Taken 06/02/22] lactulose 20 gram/30 mL oral solution 30 ml PO Q4 hyperammonemia 06/13/22 [History Last Taken 07/31/22] rifaximin 550 mg tablet (Xifaxan) 550 mg PO BID Check with primary doctor 07/16/22 [History Last Taken 07/30/22] sodium bicarbonate 650 mg tablet 1,300 mg PO TID Check with primary doctor 07/16/22 [History Last Taken 07/31/22] tacrolimus 1 mg capsule, immediate-release (Prograf) 0.5 mg PO Q12H Check with primary doctor 07/16/22 [History Last Taken 07/30/22] bisacodyl 10 mg rectal suppository 10 mg OK DAILY PRN constipation 11/01/22 [History Last Taken Unknown] bismuth subsalicylate 262 mg/15 mL oral suspension (Pepto-Bismol) 524 mg PO Q30M PRN GI DISTRESS 11/01/22 [History Last Taken Unknown] magnesium hydroxide 400 mg/5 mL oral suspension (Dulcolax (magnesium hydroxide)) 5 ml PO DAILY PRN constipation 11/01/22 [History Last Taken Unknown] mineral oil (Fleet Mineral Oil enema) 118 ml OK DAILY PRN constipation 11/01/22 [History Last Taken Unknown] mirtazapine 30 mg tablet 30 mg PO QHS depression 11/01/22 [History Last Taken Unknown] Allergy/AdvReac Type Severity Reaction Status Date / Time red dye Allergy PT UNSURE Verified 11/01/22 21:52 OF REACTION Family History Mother Hypertension Father Diabetes Surgical History Kidney transplant recipient Renal transplant recipient S/P arteriovenous (AV) fistula creation Social History household members: none housing: fdc Smoking Status: Never smoker second hand exposure: No alcohol intake: never substance use type: does not use caffeine: No Physical Exam Const alert HEENT normocephalic Eyes no scleral icterus Resp normal respiratory effort and clear to auscultation bilaterally Cardio Cardio Narrative: Irregularly irregular Extremity no pedal edema Risk Stratification Risk Stratification Applicable: No Objective Data Vital Signs: Vital Signs Temp Pulse Resp BP Pulse Ox O2 Del Method O2 Flow Rate 98.6 F 96 17 104/73 96 Nasal Cannula 2 12/28/22 08:00 12/28/22 08:15 12/28/22 08:11 12/28/22 11:15 12/28/22 03:15 12/28/22 08:11 12/28/22 08:11 Oxygen Flow Rate (L/min) 2 Oxygen Delivery Method Nasal Cannula Weight: 201 lb 4.513 oz Body Mass Index (BMI) 27.3 Intake & Output: Intake and Output for Last 24 Hours 12/26/22 12/27/22 12/28/22 23:59 23:59 23:59 Intake Total 779.63 / 779.63 Output Total 1400 / 1400 Balance -620.37 / -620.37 Lab / Micro Data 12/28/22 04:15 12/28/22 04:15 Labs: Laboratory Results - last 24 hr 12/27/22 20:45: WBC 5.5, RBC 4.34 L, Hgb 12.8 L, Hct 38.0 L, MCV 87.6, MCH 29.5, MCHC 33.7, RDW Std Deviation 50.4 H, RDW Coeff of Anil 15.7 H, Plt Count 155, MPV 11.0, Immature Gran % (Auto) 0.200, Neut % (Auto) 57.7, Lymph % (Auto) 19.5, [place] % (Auto) 16.4 H, Eos % (Auto) 5.3 H, Baso % (Auto) 0.9, Absolute Neuts (auto) 3.2, Absolute Lymphs (auto) 1.07, Nucleated RBC % 0, PT 14.9, INR 1.2, APTT 34.4, Sodium 141, Potassium 3.4 L, Chloride 111 H, Carbon Dioxide 23.0, Anion Gap 7, BUN 24 H, Creatinine 1.58 H, Est GFR (MDRD) Af Amer 59 L, Est GFR (MDRD) Non-Af 49 L, BUN/Creatinine Ratio 15.2, Glucose 111 H, Calcium 8.2 L, Troponin I High Sens [id number] H* 12/27/22 22:02: PT Cancelled, INR Cancelled, APTT Cancelled 12/27/22 23:34: Troponin I High Sens [id number] H* 08/28/23 03:06: Troponin I High Sens [id number] H* 12/28/22 04:15: WBC 5.4, RBC 3.98 L, Hgb 11.3 L, Hct 35.2 L, MCV 88.4, MCH 28.4, MCHC 32.1, RDW Std Deviation 51.1 H, RDW Coeff of Anil 15.8 H, Plt Count 142 L, MPV 11.3, APTT 61.1 H, Sodium 143 12/28/22 04:15: Sodium Cancelled, Potassium 3.6 12/28/22 04:15: Potassium Cancelled, Chloride 114 H 12/28/22 04:15: Chloride Cancelled, Carbon Dioxide 21.0 12/28/22 04:15: Carbon Dioxide Cancelled, Anion Gap 8 12/28/22 04:15: Anion Gap Cancelled, BUN 24 H 12/28/22 04:15: BUN Cancelled, Creatinine 1.45 H 12/28/22 04:15: Creatinine Cancelled, Estim Creat Clear Calc 63.18 12/28/22 04:15: Estim Creat Clear Calc Cancelled, Est GFR (MDRD) Af Amer 65 12/28/22 04:15: Est GFR (MDRD) Af Amer Cancelled, Est GFR (MDRD) Non-Af 54 L 12/28/22 04:15: Est GFR (MDRD) Non-Af Cancelled, BUN/Creatinine Ratio 16.6 12/28/22 04:15: BUN/Creatinine Ratio Cancelled, Glucose 113 H 12/28/22 04:15: Glucose Cancelled, Calcium 7.7 L 12/28/22 04:15: Calcium Cancelled, Phosphorus 3.7 12/28/22 04:15: Phosphorus Cancelled, Magnesium 1.4 L 12/28/22 04:15: Magnesium Cancelled, Total Bilirubin 1.50 H, AST 95 H, ALT 46, Alkaline Phosphatase 77, Total Protein 5.3 L, Albumin 2.2 L, Globulin 3.1, Albumin/Globulin Ratio 0.7 L, Triglycerides 59, Cholesterol 187, LDL Cholesterol 120, VLDL Cholesterol 12, HDL Cholesterol 55, TSH 1.44 12/28/22 10:10: APTT 59.1 H Rhythm Strip Rhythm Strip: Sinus Tach Rate: 106 Cardiology Labs/Tests 12/27/22 20:45: WBC 5.5, RBC 4.34 L, Hgb 12.8 L, Hct 38.0 L, MCV 87.6, MCH 29.5, MCHC 33.7, Plt Count 155, MPV 11.0, Immature Gran % (Auto) 0.200, Neut % (Auto) 57.7, Lymph % (Auto) 19.5, [place] % (Auto) 16.4 H, Eos % (Auto) 5.3 H, Baso % (Auto) 0.9, Absolute Neuts (auto) 3.2, Nucleated RBC % 0, PT 14.9, INR 1.2, APTT 34.4, Sodium 141, Potassium 3.4 L, Chloride 111 H, Carbon Dioxide 23.0, Anion Gap 7, BUN 24 H, Creatinine 1.58 H, Est GFR (MDRD) Af Amer 59 L, Est GFR (MDRD) Non-Af 49 L, BUN/Creatinine Ratio 15.2, Glucose 111 H, Calcium 8.2 L 12/27/22 22:02: PT Cancelled, INR Cancelled, APTT Cancelled 12/28/22 04:15: WBC 5.4, RBC 3.98 L, Hgb 11.3 L, Hct 35.2 L, MCV 88.4, MCH 28.4, MCHC 32.1, Plt Count 142 L, MPV 11.3, APTT 61.1 H, Sodium 143 12/28/22 04:15: Sodium Cancelled, Potassium 3.6 12/28/22 04:15: Potassium Cancelled, Chloride 114 H 12/28/22 04:15: Chloride Cancelled, Carbon Dioxide 21.0 12/28/22 04:15: Carbon Dioxide Cancelled, Anion Gap 8 12/28/22 04:15: Anion Gap Cancelled, BUN 24 H 12/28/22 04:15: BUN Cancelled, Creatinine 1.45 H 12/28/22 04:15: Creatinine Cancelled, Est GFR (MDRD) Af Amer 65 12/28/22 04:15: Est GFR (MDRD) Af Amer Cancelled, Est GFR (MDRD) Non-Af 54 L 12/28/22 04:15: Est GFR (MDRD) Non-Af Cancelled, BUN/Creatinine Ratio 16.6 12/28/22 04:15: BUN/Creatinine Ratio Cancelled, Glucose 113 H 12/28/22 04:15: Glucose Cancelled, Calcium 7.7 L 12/28/22 04:15: Calcium Cancelled, Phosphorus 3.7 12/28/22 04:15: Phosphorus Cancelled, Magnesium 1.4 L 12/28/22 04:15: Magnesium Cancelled, Total Bilirubin 1.50 H, Triglycerides 59, Cholesterol 187, LDL Cholesterol 120, VLDL Cholesterol 12, HDL Cholesterol 55 12/28/22 10:10: APTT 59.1 H Rhythm: EKG: ECHO: Stress Test: Cardiac Cath: PCI: CT Surgery: Holter monitor: EPS: PPM: CXR: Chest CT Scan: Radiography Diagnostic Testing: Radiology Impression Chest X-Ray 12/27/22 21:15 IMPRESSION: Bibasilar airspace opacities more prominent on the left suggesting bilateral lower lobe pneumonia which is improved since the previous study. Cardiomegaly. Electronically Signed: Mayra Madrid MD at 22:05 EDT ,
--- NOTE | 2022-12-28 13:31 | CASEMGMT ---
Social Work SW contacted patient's sister, CASSI Loera as patient is out of his room currently. SW introduced self and role as [facility] SW to patient's sister. Evaristo verified patient is from [facility] living, plan to return but unsure if it will be assisted living or skilled side. Patient's brother, Alejo, is also assisting with patient's D/C plan per Evaristo. SW to continue to follow for D/C plan. Plan: [facility] [place] [facility] PROFESSIONAL EMPLOYER CONSULTANT, CHRISTINE
--- NOTE | 2022-12-28 13:45 | CASEMGMT ---
Discharge Planning Updates sent to [place] via [facility]. Informed them that SNF placement may be needed for a short time. Joanna Lee, Discharge Planning Asst.
[2022-12-28 14:05] LABS: Absolute Lymphocyte Count 0.61 X10^3/uL (0.83-4.51); Absolute Neutrophil Count 3.8 X10^3/uL (2.0-7.7); Basophil# 0.05 X10^3/uL; Basophil% 0.9 % (0-1); Eosinophil# 0.12 X10^3/uL; Eosinophils% 2.3 % (0-5); Lymphocyte # 0.61 X10^3/ul (0.83-4.51); Lymphocyte % 11.4 % (19-41); Monocyte# 0.78 X10^3/uL; Monocyte% 14.6 % (0-10); NRBC Flagged by Analyzer 0 % (0-5); Neutrophil # 3.76 X10^3/uL (2.7-7.7); Neutrophil % 70.6 % (47-70)
[2022-12-28] MEDS: Sodium Bicarbonate 650 MG Tablet 1300 MG PO ×2 (14:33→21:19)
--- NOTE | 2022-12-28 15:40 | CASEMGMT ---
Social Work SW requested to speak with patient and patient's family. SW met with patient and patient's family and introduced self and role as [facility] SW. Patient lying on hospital bed and agreeable to speak with SW with family present. Patient's brother, Alejo, present and inquiring about SW that contacted patient's sister regarding d/c plan. SW reviewed conversation with patient's sister, explaining SW was inquiring about discharge plan as we have that discussion even before patients are medically ready so we can plan for patient's needs. Alejo inquiring about timeline for discharge and expressed frustration regarding previous discharge stating their family is given very short notice before patient leaves. Alejo also reports patient's sister was upset SW was inquiring about discharge due to patient's current medical needs. SW explained d/c is determined by patient's doctor and was unable to provide a timeline. SW explained the discharge pizza hut assistant will provide updates to [facility] [place] and SW will continue to follow along or d/c needs. Patient's brother then requested the documents sent to SNF be sent to him so he is aware of everything. SW explained patient's brother would need to request medical documents, SW is unable to provide. Patient's brother states he has been told that before and wasn't given the documents, SW reiterated medical documents have to be requested. SW to continue to follow along. Plan: [place] [facility] [place] vs [facility] MSW, CHRISTINE
[2022-12-28] MEDS: dilTIAZem 30 MG Tablet PO ×2 (17:03→23:16)
[2022-12-28] MEDS: 0.9% Saline Lock 10 ML Syringe IV (18:13)
[2022-12-28] MEDS: APIXABAN 5 MG TABLET PO (21:18)
[2022-12-28] MEDS: Mirtazapine 30 MG Tablet PO (21:19)
[2022-12-29] VITALS (10 sets, daily range): BP systolic 108–136; BP diastolic 71–83; PULSE 76–86; RESP 18–22; TEMP 36.1–36.7; O2SAT 94–99; BMI 28.2
[2022-12-29] MEDS: Lactulose 20 GM/30 ML UDC PO ×6 (02:46→21:36)
[2022-12-29] MEDS: dilTIAZem 30 MG Tablet PO ×3 (05:07→17:33)
[2022-12-29] MEDS: Sodium Bicarbonate 650 MG Tablet 1300 MG PO ×3 (05:07→21:37)
[2022-12-29 05:40] LABS: Absolute Neutrophil Count 4.9 X10^3/uL (2.0-7.7); Basophil# 0.05 X10^3/uL; Basophil% 0.7 % (0-1); Eosinophil# 0.15 X10^3/uL; Eosinophils% 2.1 % (0-5); Hematocrit 34.5 % (40-54); Hemoglobin 10.9 g/dL (13.0-16.5); Lymphocyte % 9.9 % (19-41); Mean Corp Hgb Conc 31.6 g/dL (32-36); Mean Corpuscular Hgb 28.7 pg (27.0-32.0); Mean Corpuscular Volume 90.8 fL (80-94); Mean Platelet Vol. 11.3 fl (6.2-12.0); Monocyte# 1.24 X10^3/uL; Monocyte% 17.5 % (0-10); NRBC Flagged by Analyzer 0 % (0-5); Neutrophil # 4.91 X10^3/uL (2.7-7.7); Neutrophil % 69.2 % (47-70); Platelet Count 146 K/mm3 (150-450); RBC Distribution Width CV 16.4 % (11.6-14.6); RBC Distribution Width SD 54.1 fl (35.1-43.9); White Blood Count 7.1 K/mm3 (4.4-11.0)
[2022-12-29 06:12] LABS: ALB/GLOB Ratio 0.7 RATIO (0.9-2.4); AST(SGOT) 78 U/L (15-37); Alanine Aminotransfer ALT/SGPT 43 U/L (16-61); Albumin, Serum 2.1 g/dL (3.2-5.0); Alkaline Phosphatase 82 U/L (45-117); Anion Gap 6 (5-15); BUN 29 mg/dL (7-18); BUN/Creat Ratio 16.3 RATIO (10-20); Calcium,Total 7.4 mg/dL (8.5-10.1); Chloride 118 mmol/L (98-107); Creatinine, Serum 1.78 mg/dL (0.70-1.30); EST Glomerular Filtration Rate 42 mL/min (>60); Est Glom Filt Rate - Afr Amer 51 mL/min (>60); Estimated Creatinine Clearance 51.47 ml/min; Glucose 128 mg/dL (74-106); Potassium 3.6 mmol/L (3.5-5.1); Protein, Total 5.1 g/dL (6.4-8.2); Sodium Level 144 mmol/L (136-145)
[2022-12-29] MEDS: APIXABAN 5 MG TABLET PO ×2 (08:46→21:36)
[2022-12-29] MEDS: Tacrolimus 0.5 MG Capsule PO ×2 (08:46→21:34)
[2022-12-29] MEDS: Mycophenolate Mofetil 250 MG Capsule 500 MG PO ×2 (08:46→21:34)
[2022-12-29] MEDS: Metoprolol Tartrate 25 MG Tablet PO ×2 (08:46→21:37)
[2022-12-29] MEDS: rifAXIMin 550 MG Tablet PO ×2 (08:47→21:38)
[2022-12-29] MEDS: Aspirin E.C. 81 MG Tablet PO (08:47)
[2022-12-29] MEDS: Multivitamins,Therapeutic Tablet 1 TABLET PO (08:47)
[2022-12-29] MEDS: Menthol/Lanolin/Calamine/Znox 113 GM Tube 1 APPLIC TOPICAL ×2 (08:47→21:36)
--- NOTE | 2022-12-29 08:55 | PCM.PN.HOSP ---
Reason for Visit Reason for Visit: Diagnoses Hypokalemia (12/27/22) Essential (primary) hypertension (12/27/22) Non-ST elevation (NSTEMI) myocardial infarction (12/27/22) Paroxysmal atrial fibrillation (12/27/22) Subjective Subjective Chest is beginning to feel better, does feel a little abdominal discomfort that he says sometimes he feels when he is getting a urinary tract infection, no other acute complaints Objective Data Objective Data Vital Signs: Vital Signs Temp Pulse Resp BP Pulse Ox O2 Del Method O2 Flow Rate 97.5 F L 78 18 132/83 H 96 Room Air 2 12/29/22 08:35 12/29/22 08:46 12/29/22 08:41 12/29/22 08:46 12/29/22 08:41 12/29/22 08:41 12/29/22 08:35 FiO2 100 12/28/22 14:00 Oxygen Flow Rate (L/min) 2 Oxygen Delivery Method Room Air Weight: 94.5 kg Body Mass Index (BMI) 28.2 Intake & Output: Intake and Output for Last 24 Hours 12/27/22 12/28/22 12/29/22 23:59 23:59 23:59 Intake Total 2481.21 / 2881.21 1458.33 / 1458.33 Output Total 1900 / 2250 550 / 550 Balance 581.21 / 631.21 908.33 / 908.33 Lab / Micro Data 12/29/22 05:14 12/29/22 05:14 Labs: Laboratory Results - last 24 hr 12/28/22 04:15: Immature Gran % (Auto) 0.200, Neut % (Auto) 70.6 H, Lymph % (Auto) 11.4 L, [place] % (Auto) 14.6 H, Eos % (Auto) 2.3, Baso % (Auto) 0.9, Absolute Neuts (auto) 3.8, Absolute Lymphs (auto) 0.61 L, Nucleated RBC % 0 12/28/22 10:10: APTT 59.1 H 12/29/22 05:14: WBC 7.1, RBC 3.80 L, Hgb 10.9 L, Hct 34.5 L, MCV 90.8, MCH 28.7, MCHC 31.6 L, RDW Std Deviation 54.1 H, RDW Coeff of Anil 16.4 H, Plt Count 146 L, MPV 11.3, Immature Gran % (Auto) 0.600, Neut % (Auto) 69.2, Lymph % (Auto) 9.9 L, [place] % (Auto) 17.5 H, Eos % (Auto) 2.1, Baso % (Auto) 0.7, Absolute Neuts (auto) 4.9, Absolute Lymphs (auto) 0.70 L, Nucleated RBC % 0, Sodium 144, Potassium 3.6, Chloride 118 H, Carbon Dioxide 20.0 L, Anion Gap 6, BUN 29 H, Creatinine 1.78 H, Estim Creat Clear Calc 51.47, Est GFR (MDRD) Af Amer 51 L, Est GFR (MDRD) Non-Af 42 L, BUN/Creatinine Ratio 16.3, Glucose 128 H, Calcium 7.4 L, Total Bilirubin 1.20 H, AST 78 H, ALT 43, Alkaline Phosphatase 82, Total Protein 5.1 L, Albumin 2.1 L, Globulin 3.0, Albumin/Globulin Ratio 0.7 L Radiography Diagnostic Testing: Radiology Impression Venous Doppler Study 12/28/22 00:06 Interpretation Summary Deep veins of the bilateral lower extremities are patent and compressible segmentally. There is no evidence of bilateral lower extremity deep vein thrombosis. The bilateral great saphenous veins appear patent and compressible segmentally. Ordering Physician: Stella Bell Referring Physician: Mike Bella Performed By: Alicia Méndez RVT Echocardiogram 12/28/22 05:55 Interpretation Summary The estimated ejection fraction is 60 %. No evidence for diastolic dysfunction. The left atrium is moderately enlarged. The right atrium is moderately enlarged. Trivial mitral valve insufficiency. Ordering Physician: Stella Bell Referring Physician: Mike Bella Performed By: Chaz Thao RCS Rhythm Strip Rhythm Strip: Sinus Tach Rate: 106 Physical Exam Narrative General: Alert, answers questions appropriately, no acute distress HEENT: Atraumatic, Eyes: Anicteric Neck: Supple Respiratory: Clear to auscultation bilaterally Cardiovascular: Regular rate and rhythm GI: Fairly soft, slightly firm Extremities: Slight swelling in lower extremities right greater than left Musculoskeletal: Moving all extremities Neuro: No overt focal neurological deficits Skin: No rashes appreciated Psych: Cooperative Assessment & Plan Assessment/Plan (1) Non-ST elevated myocardial infarction (non-STEMI): (2) Hypertension: (3) Hypokalemia: PLAN: Plan NSTEMI type II -Patient presented with chest pain that was in the middle of her chest that described as a dull ache with no radiation with associated shortness of breath and diaphoresis -Initial troponin was greater than 10,000 -Start heparin drip -Start nitro drip -Full aspirin given the emergency department and will continue baby aspirin tomorrow -Check lipids -Start atorvastatin 80 mg -Start metoprolol 25 mg p.o. twice daily -Check echocardiogram -N.p.o. after midnight -Consult cardiology for probable cardiac catheterization to be performed tomorrow -12/28: Troponin peaked at 24,228 with heparin and nitroglycerin drips, cardiology consulted, likely for Today -12/29: Cardiac cath did not reveal any significant disease, could have been A-fib with RVR versus PE, lower extremity Dopplers negative and given risk with further contrast exposure as well as patient requiring anticoagulation due to the A-fib anyway decision to medically manage and anticoagulate made in conjunction with cardiology. Continue current medication. 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 -Baseline serum creatinine is running between 1.3 and 1.5 -Current serum creatinine 1.58 -Hydrate with LR at 100 cc/h in preparation for cardiac catheterization -Continue oral bicarb -Continue home tacrolimus, CellCept -Monitor renal function closely with need for contrast and cardiac catheterization -12/28: On home medications, fluids, will monitor closely with need for contrast during cath -12/29: Slight increase today she has not totally unexpected, will restart some gentle hydration, patient also feels like he may be getting a UTI so we will check a UA afib w/ rvr -Developed after admission and he was given metoprolol x1 which was helpful. Other work-up as above -12/29: Has been back in normal sinus rhythm, continue anticoagulation and current medications Hypokalemia -Potassium was 3.4 on admission -We will give 40 mill equivalents p.o. potassium and recheck in a.m. -Check a.m. magnesium level -12/29: Resolved Lower extremity swelling -Check lower extremity Doppler -12/29: No DVTs History of hyperammonemia -Suspected related to decreased clearance with CKD as well as protein calorie malnutrition -Continue lactulose and rifaximin -Mental status is currently at baseline Recent community-acquired pneumonia -Patient has been on Levaquin--> it appears that the antibiotic course has been completed -Chest x-ray reflects improvement -Monitor clinically History of severe Malnutrition -Patient has gained considerable amount of weight -I suspect his nutritional status has improved -Consult dietitian History of atonic bladder -Self caths regularly -We will place Ga with patient's hospitalized Chronic anemia -Baseline hemoglobin is between 12 and 13 -Hemoglobin appears to be stable -Continue to monitor Hypertension -Patient is currently not taking anything -Nitro drip -Start metoprolol 25 mg p.o. twice daily -Depending on blood pressures could consider additional lisinopril tomorrow after cath -12/28: BP well controlled Depression -Continue Remeron MRDD -Lives in an [place] at baseline -Brother and sister are healthcare power of corporate associate attorney DVT prophylaxis -Full anticoagulation with Eliquis CODE STATUS -Full code Charges/Coding Visit Charges Inpatient E&M: 42783 Subs Hosp L2
--- NOTE | 2022-12-29 12:48 | CL.D_ITS ---
Patient Name: ROOSVEELT GARCIA Study Date: 12/28/2022 Performing: Danny Irby MD Ht: 72 inches 182.88 cm : 1965 Wt: 201.5 lbs 91.3 kg Age: 57 Gender: male BSA: 2.14 PROCEDURE(S) PERFORMED [id number]-([id number])[facility] CLINICAL PROFILE AND INDICATIONS Indications: ACS <= 24 hrs Heart Failure: None Stress/Imaging Stress/Image Study Performed: No CAD Presentations: Non-STEMI. Symptom onset Date/Time: Time Not Available CONCLUSIONS CAD as described. No significant RECOMMENDATIONS Medical therapy for CAD DESCRIPTION OF PROCEDURE The patient arrived to the procedure lab. The risks and benefits of the procedure as well as a full description of our services here and current unavailability of surgical backup were fully explained to the patient and/or their significant other prior to the catheterization. The Timeout was completed, verifying the correct patient and procedure. The patient's procedural site was prepped and draped in the usual fashion. Local anesthetic was given subcutaneously to right groin region with Lidocaine 2%. Using a modified Seldinger technique, arterial access was obtained via the right femoral artery, with Micropuncture set Left Coronary Artery selective angiography was performed in multiple views using a 5 Fr. JL4 catheter. LV to AO pullback pressures were then recorded. Right Coronary Artery selective angiography was then performed in multiple views using a 5 Fr. JR 4 catheter.Contrast was injected through the sheath and the Right Iliac and Femoral artery were assessed for possible closure device.The arterial sheath was pulled and a Perclose closure device was deployed for hemostasis CORONARY ANGIOGRAPHY DOMINANCE: Co- Dominant LEFT HEART ASSESSMENT LEFT MAIN: Mild luminal irregularities LEFT ANTERIOR DESCENDING ARTERY: MID LAD: 25 % Stenosis CIRCUMFLEX ARTERY: Mild luminal irregularities RAMUS: 60-70% stenosis in ostial and proximal Ramus RIGHT CORONARY ARTERY: Mild luminal irregularities VALVE FINDINGS: No Aortic Valve Stenosis COMPLICATIONS No Complications PROCEDURE MEDICATIONS Versed 1 mg IV Oxygen: 2 L/min via nasal cannula Nitro glycerin 25mg / 250ml D5W @ 15 mcg/min IV started in PCU 12/28/2022 11:30:26 Nitro glycerin 25mg / 250ml D5W @ 15 mcg/min discontinued 12/28/2022 12:08:33 SUMMARY OF HEMODYNAMIC DATA Time AIR REST ECG 11:37:37 AO 81/50 (63) SA 11:53:23 LV 107/0, 7 11:58:36 LV 108/0, 7 11:58:44 LVp 106/-2, 6 11:58:56 AOp 93/56 (70) 11:59:03 Signed By Danny Irby MD On 12/29/2022 12:47:22 Danny Irby MD
--- NOTE | 2022-12-29 14:20 | CASEMGMT ---
Discharge Planning Updates sent to [facility] via [facility]. Precert will be started. Joanna Lee, Discharge Planning Asst.
[2022-12-29] MEDS: 0.9% Normal Saline 1,000 ML 75 ML IV (15:04)
--- NOTE | 2022-12-29 15:23 | NURSING ---
pt stated he needed to have a BM, assisted to bsc x1 assist. no BM assisted back to bed. mother at bedside.
[2022-12-29 17:31] LABS: Mucous, Urine 0 SEEN /hpf (<or=2+); Squamous Epithelial Cells - UA 0 SEEN /hpf (0-5)
[2022-12-29 17:45] LABS: Color, Urine Yellow (Yellow); Glucose, Dipstick Normal (Normal); Ketone-Dipstick 5 mg/dl (Negative); Leukocyte Esterase-Dipstick 100 /ul (Negative); Nitrite-Dipstick Negative (Negative); Occult Blood-Urine 250 /ul (Negative); Protein-Dipstick 500 mg/dl (Negative); Specific Gravity, Urine 1.025 (1.002-1.030); Urine Bilirubin Dipstick Negative (Negative); Urine Clarity Sl. Cloudy (Clear); Urine Urobilinogen Normal (Normal)
[2022-12-29 17:55] LABS: Bacteria 1+ /hpf (None Seen); Red Blood Cells-Urine 50-100 SEEN /hpf (0-5); White Blood Cells 50-100 SEEN /hpf (0-5)
[2022-12-29] MEDS: Atorvastatin Calcium 80 MG Tablet PO (21:37)
[2022-12-29] MEDS: Mirtazapine 30 MG Tablet PO (21:38)
[2022-12-29] MEDS: Polyethylene Glycol 3350 17 GM PACKET PO (21:43)
[2022-12-30] VITALS (10 sets, daily range): BP systolic 131–152; BP diastolic 75–94; PULSE 81–98; RESP 16–20; TEMP 36.2–37.2; O2SAT 94–97; BMI 28.5
[2022-12-30] MEDS: dilTIAZem 30 MG Tablet PO ×4 (00:47→17:59)
[2022-12-30] MEDS: Lactulose 20 GM/30 ML UDC PO ×6 (00:48→21:24)
--- NOTE | 2022-12-30 02:54 | CPS ---
RT d/c PEP and I.S. as pt is unable, pt is hard of hearing and struggles to follow instructions to perform PEP and I.S.
[2022-12-30] MEDS: 0.9% Normal Saline 1,000 ML 75 ML IV ×2 (04:49→18:03)
[2022-12-30] MEDS: Sodium Bicarbonate 650 MG Tablet 1300 MG PO ×3 (05:32→21:24)
[2022-12-30 06:35] LABS: Absolute Lymphocyte Count 1.09 X10^3/uL (0.83-4.51); Absolute Neutrophil Count 4.7 X10^3/uL (2.0-7.7); Basophil# 0.05 X10^3/uL; Basophil% 0.7 % (0-1); Eosinophil# 0.36 X10^3/uL; Eosinophils% 4.9 % (0-5); Hematocrit 37.3 % (40-54); Hemoglobin 11.8 g/dL (13.0-16.5); Lymphocyte # 1.09 X10^3/ul (0.83-4.51); Lymphocyte % 14.8 % (19-41); Mean Corp Hgb Conc 31.6 g/dL (32-36); Mean Corpuscular Hgb 28.6 pg (27.0-32.0); Mean Corpuscular Volume 90.3 fL (80-94); Monocyte# 1.15 X10^3/uL; Monocyte% 15.6 % (0-10); NRBC Flagged by Analyzer 0 % (0-5); Neutrophil # 4.67 X10^3/uL (2.7-7.7); Neutrophil % 63.5 % (47-70); Platelet Count 161 K/mm3 (150-450); RBC Distribution Width CV 16.6 % (11.6-14.6); RBC Distribution Width SD 54.2 fl (35.1-43.9); Red Blood Count 4.13 M/mm3 (4.6-6.2); White Blood Count 7.4 K/mm3 (4.4-11.0)
[2022-12-30 06:58] LABS: Anion Gap 6 (5-15); BUN 26 mg/dL (7-18); BUN/Creat Ratio 17.1 RATIO (10-20); Calcium,Total 7.8 mg/dL (8.5-10.1); Chloride 119 mmol/L (98-107); Creatinine, Serum 1.52 mg/dL (0.70-1.30); EST Glomerular Filtration Rate 51 mL/min (>60); Est Glom Filt Rate - Afr Amer 61 mL/min (>60); Estimated Creatinine Clearance 60.27 ml/min; Glucose 102 mg/dL (74-106); Potassium 3.7 mmol/L (3.5-5.1); Sodium Level 145 mmol/L (136-145)
[2022-12-30] MEDS: Aspirin E.C. 81 MG Tablet PO (09:14)
[2022-12-30] MEDS: Menthol/Lanolin/Calamine/Znox 113 GM Tube 1 APPLIC TOPICAL ×2 (09:15→21:20)
[2022-12-30] MEDS: Mycophenolate Mofetil 250 MG Capsule 500 MG PO ×2 (09:15→21:27)
[2022-12-30] MEDS: Multivitamins,Therapeutic Tablet 1 TABLET PO (09:15)
[2022-12-30] MEDS: Metoprolol Tartrate 25 MG Tablet PO ×2 (09:16→21:25)
[2022-12-30] MEDS: APIXABAN 5 MG TABLET PO ×2 (09:16→21:30)
[2022-12-30] MEDS: Tacrolimus 0.5 MG Capsule PO ×2 (09:17→21:32)
[2022-12-30] MEDS: rifAXIMin 550 MG Tablet PO ×2 (09:17→21:31)
[2022-12-30] MEDS: Polyethylene Glycol 3350 17 GM PACKET PO ×2 (09:30→21:33)
--- NOTE | 2022-12-30 09:33 | PN.HOSP_ITS ---
Reason for Visit Reason for Visit: Diagnoses Hypokalemia (12/27/22) Essential (primary) hypertension (12/27/22) Non-ST elevation (NSTEMI) myocardial infarction (12/27/22) Paroxysmal atrial fibrillation (12/27/22) Subjective Subjective Patient reports that his legs feel little bit sore but overall and feels a little bit down overall however less tired than yesterday and today denies any burning or abdominal pain Objective Data Objective Data Vital Signs: Vital Signs Temp Pulse Resp BP Pulse Ox O2 Del Method O2 Flow Rate 99.0 F 98 20 H 152/92 H 95 Nasal Cannula 2 12/30/22 08:12 12/30/22 09:16 12/30/22 08:12 12/30/22 09:16 12/30/22 08:12 12/30/22 09:08 12/30/22 07:18 FiO2 100 12/28/22 14:00 Oxygen Flow Rate (L/min) 2 Oxygen Delivery Method Nasal Cannula Weight: 95.5 kg Body Mass Index (BMI) 28.5 Intake & Output: Intake and Output for Last 24 Hours 12/28/22 12/29/22 12/30/22 23:59 23:59 23:59 Intake Total 2481.21 / 2881.21 1698.33 / 1748.33 1050 / 1050 Output Total 1900 / 2250 1075 / 1290 215 / 215 Balance 581.21 / 631.21 623.33 / 458.33 835 / 835 Lab / Micro Data 12/30/22 05:45 12/30/22 05:45 Labs: Laboratory Results - last 24 hr 12/29/22 17:25: Urine Color Yellow, Urine Clarity Sl. Cloudy, Urine pH 6.0, Ur Specific [place] 1.025, Urine Protein 500 H, Urine Glucose (UA) Normal, Urine Ketones 5 H, Urine Occult Blood 250 H, Urine Nitrite Negative, Urine Bilirubin Negative, Urine Urobilinogen Normal, Ur Leukocyte Esterase 100 H, Urine RBC 50- 100 SEEN, Urine WBC 50-100 SEEN, Ur Squamous Epith Cells 0 SEEN, Urine Bacteria 1+, Urine Mucus 0 SEEN 12/30/22 05:45: WBC 7.4, RBC 4.13 L, Hgb 11.8 L, Hct 37.3 L, MCV 90.3, MCH 28.6, MCHC 31.6 L, RDW Std Deviation 54.2 H, RDW Coeff of Anil 16.6 H, Plt Count 161, MPV 11.0, Immature Gran % (Auto) 0.500, Neut % (Auto) 63.5, Lymph % (Auto) 14.8 L, [place] % (Auto) 15.6 H, Eos % (Auto) 4.9, Baso % (Auto) 0.7, Absolute Neuts (auto) 4.7, Absolute Lymphs (auto) 1.09, Nucleated RBC % 0, Sodium 145, Potassium 3.7, Chloride 119 H, Carbon Dioxide 20.0 L, Anion Gap 6, BUN 26 H, Creatinine 1.52 H, Estim Creat Clear Calc 60.27, Est GFR (MDRD) Af Amer 61, Est GFR (MDRD) Non-Af 51 L, BUN/Creatinine Ratio 17.1, Glucose 102, Calcium 7.8 L Rhythm Strip Rhythm Strip: Sinus Tach Rate: 106 Physical Exam Narrative General: Alert, answers questions appropriately, no acute distress HEENT: Atraumatic, Eyes: Anicteric Neck: Supple Respiratory: Clear to auscultation bilaterally Cardiovascular: Regular rate and rhythm GI: Fairly soft, slightly firm Extremities: Slight swelling in lower extremities right greater than left Musculoskeletal: Moving all extremities Neuro: No overt focal neurological deficits Skin: No rashes appreciated Psych: Cooperative Assessment & Plan Assessment/Plan (1) Non-ST elevated myocardial infarction (non-STEMI): (2) Hypertension: (3) Hypokalemia: PLAN: Plan NSTEMI type II -Patient presented with chest pain that was in the middle of her chest that described as a dull ache with no radiation with associated shortness of breath and diaphoresis -Initial troponin was greater than 10,000 -Start heparin drip -Start nitro drip -Full aspirin given the emergency department and will continue baby aspirin tomorrow -Check lipids -Start atorvastatin 80 mg -Start metoprolol 25 mg p.o. twice daily -Check echocardiogram -N.p.o. after midnight -Consult cardiology for probable cardiac catheterization to be performed tomorrow -12/28: Troponin peaked at 24,228 with heparin and nitroglycerin drips, cardiology consulted, likely for Today -12/29: Cardiac cath did not reveal any significant disease, could have been A- fib with RVR versus PE, lower extremity Dopplers negative and given risk with further contrast exposure as well as patient requiring anticoagulation due to the A-fib anyway decision to medically manage and anticoagulate made in conjun ction with cardiology. Continue current medication. 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 -Baseline serum creatinine is running between 1.3 and 1.5 -Current serum creatinine 1.58 -Hydrate with LR at 100 cc/h in preparation for cardiac catheterization -Continue oral bicarb -Continue home tacrolimus, CellCept -Monitor renal function closely with need for contrast and cardiac catheterization -12/28: On home medications, fluids, will monitor closely with need for contrast during cath -12/29: Slight increase today she has not totally unexpected, will restart some gentle hydration, patient also feels like he may be getting a UTI so we will check a UA -12/30: Improved today with fluids, patient was concerned he was developing a UTI but today denying any burning, urine culture pending, presently vitals and labs are stable but UA was suggestive of UTI, patient has history of multiple organisms some with very specific resistance patterns so will assess if positive and colony count and decide further on abx afib w/ rvr -Developed after admission and he was given metoprolol x1 which was helpful. Other work-up as above -12/29: Has been back in normal sinus rhythm, continue anticoagulation and current medications Hypokalemia -Potassium was 3.4 on admission -We will give 40 mill equivalents p.o. potassium and recheck in a.m. -Check a.m. magnesium level -12/29: Resolved Lower extremity swelling -Check lower extremity Doppler -12/29: No DVTs History of hyperammonemia -Suspected related to decreased clearance with CKD as well as protein calorie malnutrition -Continue lactulose and rifaximin -Mental status is currently at baseline Recent community-acquired pneumonia -Patient has been on Levaquin--> it appears that the antibiotic course has been completed -Chest x-ray reflects improvement -Monitor clinically History of severe Malnutrition -Patient has gained considerable amount of weight -I suspect his nutritional status has improved -Consult dietitian History of atonic bladder -Self caths regularly -We will place Ga with patient's hospitalized Chronic anemia -Baseline hemoglobin is between 12 and 13 -Hemoglobin appears to be stable -Continue to monitor Hypertension -Patient is currently not taking anything -Nitro drip -Start metoprolol 25 mg p.o. twice daily -Depending on blood pressures could consider additional lisinopril tomorrow after cath -12/28: BP well controlled Depression -Continue Remeron MRDD -Lives in an [place] at baseline -Brother and sister are healthcare power of insurance defense attorney DVT prophylaxis -Full anticoagulation with Eliquis CODE STATUS -Full code Charges/Coding Visit Charges Inpatient E&M: 76670 Subs Hosp L2
--- NOTE | 2022-12-30 12:06 | CASEMGMT ---
STUART called patient's sister Chandrakant and let her know the physician is waiting on urine cultures. STUART explained that if physician would get cultures it is possible patient could return to [facility] today. STUART also explained that Abigail is concerned with patient returning to [place] and would like patient to go to the assisted side. Chandrakant agreed and said she and her brother Alejo talked and they would prefer patient go to the assisted side so he can get the care he needs. STUART let Chandrakant know SW will let her know as soon as STUART hears anything about discharge. Anna Kirby [employer]ARY Shu
--- NOTE | 2022-12-30 15:08 | CASEMGMT ---
Patient will not be discharged today. STUART called patient's sister Chandrakant and notified her that patient will not be discharged today, but likely tomorrow. Chandrakant thanked STUART for letting her know this information. Plan: d/c to [facility] when medically ready. Anna KING
[2022-12-30] MEDS: Atorvastatin Calcium 80 MG Tablet PO (21:30)
[2022-12-30] MEDS: Mirtazapine 30 MG Tablet PO (21:34)
[2022-12-30] MEDS: Linezolid 600 MG 600 MG/300 ML BAG 200 MG IV (21:51)
[2022-12-31] VITALS (9 sets, daily range): BP systolic 128–151; BP diastolic 78–88; PULSE 78–89; RESP 16–20; TEMP 36.6–37.2; O2SAT 94–98; BMI 28.6
[2022-12-31] MEDS: Lactulose 20 GM/30 ML UDC PO ×6 (01:03→21:53)
[2022-12-31] MEDS: dilTIAZem 30 MG Tablet PO ×4 (01:04→18:04)
[2022-12-31 05:46] LABS: Absolute Lymphocyte Count 0.88 X10^3/uL (0.83-4.51); Absolute Neutrophil Count 3.5 X10^3/uL (2.0-7.7); Basophil# 0.05 X10^3/uL; Basophil% 0.9 % (0-1); Eosinophil# 0.34 X10^3/uL; Hematocrit 33.3 % (40-54); Hemoglobin 10.8 g/dL (13.0-16.5); Lymphocyte # 0.88 X10^3/ul (0.83-4.51); Lymphocyte % 15.5 % (19-41); Mean Corp Hgb Conc 32.4 g/dL (32-36); Mean Corpuscular Hgb 29.4 pg (27.0-32.0); Mean Corpuscular Volume 90.7 fL (80-94); Mean Platelet Vol. 10.6 fl (6.2-12.0); Monocyte# 0.88 X10^3/uL; Monocyte% 15.5 % (0-10); NRBC Flagged by Analyzer 0 % (0-5); Neutrophil # 3.49 X10^3/uL (2.7-7.7); Neutrophil % 61.7 % (47-70); Platelet Count 146 K/mm3 (150-450); RBC Distribution Width CV 16.1 % (11.6-14.6); RBC Distribution Width SD 53.3 fl (35.1-43.9); Red Blood Count 3.67 M/mm3 (4.6-6.2); White Blood Count 5.7 K/mm3 (4.4-11.0)
[2022-12-31] MEDS: Sodium Bicarbonate 650 MG Tablet 1300 MG PO ×3 (06:11→21:55)
[2022-12-31 06:38] LABS: Anion Gap 5 (5-15); BUN 30 mg/dL (7-18); BUN/Creat Ratio 20.3 RATIO (10-20); Calcium,Total 7.9 mg/dL (8.5-10.1); Chloride 118 mmol/L (98-107); Creatinine, Serum 1.48 mg/dL (0.70-1.30); EST Glomerular Filtration Rate 52 mL/min (>60); Est Glom Filt Rate - Afr Amer 63 mL/min (>60); Glucose 104 mg/dL (74-106); Potassium 3.7 mmol/L (3.5-5.1); Sodium Level 144 mmol/L (136-145)
[2022-12-31] MEDS: APIXABAN 5 MG TABLET PO ×2 (09:01→21:55)
[2022-12-31] MEDS: rifAXIMin 550 MG Tablet PO ×2 (09:01→21:55)
[2022-12-31] MEDS: Tacrolimus 0.5 MG Capsule PO ×2 (09:01→21:59)
[2022-12-31] MEDS: Polyethylene Glycol 3350 17 GM PACKET PO ×2 (09:01→22:03)
[2022-12-31] MEDS: Aspirin E.C. 81 MG Tablet PO (09:02)
[2022-12-31] MEDS: Mycophenolate Mofetil 250 MG Capsule 500 MG PO ×2 (09:02→21:52)
[2022-12-31] MEDS: Metoprolol Tartrate 25 MG Tablet PO ×2 (09:02→21:56)
[2022-12-31] MEDS: Multivitamins,Therapeutic Tablet 1 TABLET PO (09:02)
[2022-12-31] MEDS: Linezolid 600 MG 600 MG/300 ML BAG 200 MG IV ×2 (09:07→22:08)
[2022-12-31] MEDS: Menthol/Lanolin/Calamine/Znox 113 GM Tube 1 APPLIC TOPICAL ×2 (09:29→22:03)
--- NOTE | 2022-12-31 14:14 | CASEMGMT ---
Discharge Planning Per [facility], precert is good through 01/01/23. SW updated. Joanna Lee, Discharge Planning Asst.
--- NOTE | 2022-12-31 14:26 | PCM.PN.HOSP ---
Reason for Visit Reason for Visit: Diagnoses Hypokalemia (12/27/22) Essential (primary) hypertension (12/27/22) Non-ST elevation (NSTEMI) myocardial infarction (12/27/22) Paroxysmal atrial fibrillation (12/27/22) Subjective Subjective Patient feeling little bit tired today and just got up to go to the bathroom and felt a little lightheaded and a little more short of breath also had a little abdominal cramping but did feel better after he had had a bowel movement Objective Data Objective Data Vital Signs: Vital Signs Temp Pulse Resp BP Pulse Ox O2 Del Method O2 Flow Rate 98.9 F 78 20 H 132/83 H 98 Nasal Cannula 2 12/31/22 12:53 12/31/22 12:53 12/31/22 12:53 12/31/22 12:53 12/31/22 12:53 12/31/22 12:53 12/31/22 12:53 FiO2 100 12/28/22 14:00 Oxygen Flow Rate (L/min) 2 Oxygen Delivery Method Nasal Cannula Weight: 96 kg Body Mass Index (BMI) 28.6 Intake & Output: Intake and Output for Last 24 Hours 12/29/22 12/30/22 12/31/22 23:59 23:59 23:59 Intake Total 1698.33 / 1748.33 2942.5 / 2942.5 1231.25 / 1231.25 Output Total 1075 / 1290 2465 / 2465 650 / 650 Balance 623.33 / 458.33 477.5 / 477.5 581.25 / 581.25 Lab / Micro Data 12/31/22 05:20 12/31/22 05:20 Labs: Laboratory Results - last 24 hr 12/31/22 05:20: WBC 5.7, RBC 3.67 L, Hgb 10.8 L, Hct 33.3 L, MCV 90.7, MCH 29.4, MCHC 32.4, RDW Std Deviation 53.3 H, RDW Coeff of Anil 16.1 H, Plt Count 146 L, MPV 10.6, Immature Gran % (Auto) 0.400, Neut % (Auto) 61.7, Lymph % (Auto) 15.5 L, Maverick % (Auto) 15.5 H, Eos % (Auto) 6.0 H, Baso % (Auto) 0.9, Absolute Neuts (auto) 3.5, Absolute Lymphs (auto) 0.88, Nucleated RBC % 0, Sodium 144, Potassium 3.7, Chloride 118 H, Carbon Dioxide 21.0, Anion Gap 5, BUN 30 H, Creatinine 1.48 H, Estim Creat Clear Calc 61.90, Est GFR (MDRD) Af Amer 63, Est GFR (MDRD) Non-Af 52 L, BUN/Creatinine Ratio 20.3 H, Glucose 104, Calcium 7.9 L Micro: Microbiology 12/29/22 17:25 Urine Catheter - Ga Urine Culture - Preliminary Alpha hemolytic organism Rhythm Strip Rhythm Strip: Sinus Tach Rate: 106 Physical Exam Narrative General: Alert, answers questions appropriately, no acute distress HEENT: Atraumatic, Eyes: Anicteric Neck: Supple Respiratory: Clear to auscultation bilaterally Cardiovascular: Regular rate and rhythm GI: Fairly soft, slightly firm Extremities: Slight swelling in lower extremities right greater than left Musculoskeletal: Moving all extremities Neuro: No overt focal neurological deficits Skin: No rashes appreciated Psych: Cooperative Assessment & Plan Assessment/Plan (1) Non-ST elevated myocardial infarction (non-STEMI): (2) Hypertension: (3) Hypokalemia: PLAN: Plan #UTI -Patient had been tired and had reported a little abdominal burning 2 days ago which she felt was indicating he had a UTI, UA mildly suggestive and urine culture now with 50-80,000 colonies of alpha hemolytic organism -Given this and previous sensitivities will give linezolid with plan for 3 days given it was caught early but presently still waiting on sensitivities which should be back tomorrow NSTEMI type II -Patient presented with chest pain that was in the middle of her chest that described as a dull ache with no radiation with associated shortness of breath and diaphoresis -Initial troponin was greater than 10,000 -Start heparin drip -Start nitro drip -Full aspirin given the emergency department and will continue baby aspirin tomorrow -Check lipids -Start atorvastatin 80 mg -Start metoprolol 25 mg p.o. twice daily -Check echocardiogram -N.p.o. after midnight -Consult cardiology for probable cardiac catheterization to be performed tomorrow -12/28: Troponin peaked at 24,228 with heparin and nitroglycerin drips, cardiology consulted, likely for Today -12/29: Cardiac cath did not reveal any significant disease, could have been A-fib with RVR versus PE, lower extremity Dopplers negative and given risk with further contrast exposure as well as patient requiring anticoagulation due to the A-fib anyway decision to medically manage and anticoagulate made in conjunction with cardiology. Continue current medication. 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 -Baseline serum creatinine is running between 1.3 and 1.5 -Current serum creatinine 1.58 -Hydrate with LR at 100 cc/h in preparation for cardiac catheterization -Continue oral bicarb -Continue home tacrolimus, CellCept -Monitor renal function closely with need for contrast and cardiac catheterization -12/28: On home medications, fluids, will monitor closely with need for contrast during cath -12/29: Slight increase today she has not totally unexpected, will restart some gentle hydration, patient also feels like he may be getting a UTI so we will check a UA -12/30: Improved today with fluids, patient was concerned he was developing a UTI but today denying any burning, urine culture pending, presently vitals and labs are stable but UA was suggestive of UTI, patient has history of multiple organisms some with very specific resistance patterns so will assess if positive and colony count and decide further on abx -12/31: Continues to improve, antibiotics as above afib w/ rvr -Developed after admission and he was given metoprolol x1 which was helpful. Other work-up as above -12/29: Has been back in normal sinus rhythm, continue anticoagulation and current medications -12/31: Has been well controlled on current medications Hypokalemia -Potassium was 3.4 on admission -We will give 40 mill equivalents p.o. potassium and recheck in a.m. -Check a.m. magnesium level -12/29: Resolved Lower extremity swelling -Check lower extremity Doppler -12/29: No DVTs History of hyperammonemia -Suspected related to decreased clearance with CKD as well as protein calorie malnutrition -Continue lactulose and rifaximin -Mental status is currently at baseline Recent community-acquired pneumonia -Patient has been on Levaquin--> it appears that the antibiotic course has been completed -Chest x-ray reflects improvement -Monitor clinically History of severe Malnutrition -Patient has gained considerable amount of weight -I suspect his nutritional status has improved -Consult dietitian History of atonic bladder -Self caths regularly -We will place Ga with patient's hospitalized Chronic anemia -Baseline hemoglobin is between 12 and 13 -Hemoglobin appears to be stable -Continue to monitor Hypertension -Patient is currently not taking anything -Nitro drip -Start metoprolol 25 mg p.o. twice daily -Depending on blood pressures could consider additional lisinopril tomorrow after cath -12/28: BP well controlled Depression -Continue Remeron MRDD -Lives in an AL at baseline -Brother and sister are healthcare power of trade mark attorney DVT prophylaxis -Full anticoagulation with Eliquis CODE STATUS -Full code Charges/Coding Visit Charges Inpatient E&M: 57999 Subs Hosp L2
--- NOTE | 2022-12-31 15:45 | RAD_ITS ---
INDICATION: SOB EXAMINATION/TECHNIQUE: X-RAY - XR Chest 1 View COMPARISON: 12/27/2022. FINDINGS: Grossly no change to slight worsening in bilateral intersitial and airspace opacities. The cardiomediastinal silhouette is stable. No pleural effusion or pneumothorax. The osseous structures are unchanged. RAD/Chest 1 View (Portable) IMPRESSION: Grossly no change to slight worsening in bilateral intersitial and airspace opacities. No other significant change from prior study. Electronically Signed: Chino Puri MD at 18:01 EDT ,
[2022-12-31] MEDS: Atorvastatin Calcium 80 MG Tablet PO (21:53)
[2022-12-31] MEDS: Mirtazapine 30 MG Tablet PO (22:00)
[2022-12-31] MEDS: 0.9% Saline Lock 10 ML Syringe IV (22:04)
[2023-01-01] MEDS: dilTIAZem 30 MG Tablet PO ×3 (00:51→13:07)
[2023-01-01] MEDS: Lactulose 20 GM/30 ML UDC PO ×4 (02:22→13:07)
[2023-01-01 04:00] VITALS: BP 110/62; PULSE 77; RESP 18; TEMP 36.7; O2SAT 94
[2023-01-01] MEDS: Sodium Bicarbonate 650 MG Tablet 1300 MG PO ×2 (05:19→14:51)
[2023-01-01 06:00] VITALS: BMI 28.7
[2023-01-01 06:36] LABS: Absolute Lymphocyte Count 0.72 X10^3/uL (0.83-4.51); Absolute Neutrophil Count 3.2 X10^3/uL (2.0-7.7); Basophil# 0.04 X10^3/uL; Basophil% 0.8 % (0-1); Eosinophil# 0.49 X10^3/uL; Eosinophils% 9.5 % (0-5); Hematocrit 34.5 % (40-54); Hemoglobin 10.5 g/dL (13.0-16.5); Lymphocyte # 0.72 X10^3/ul (0.83-4.51); Mean Corp Hgb Conc 30.4 g/dL (32-36); Mean Platelet Vol. 10.9 fl (6.2-12.0); Monocyte# 0.66 X10^3/uL; Monocyte% 12.8 % (0-10); NRBC Flagged by Analyzer 0 % (0-5); Neutrophil % 62.3 % (47-70); Platelet Count 168 K/mm3 (150-450); RBC Distribution Width CV 16.2 % (11.6-14.6); RBC Distribution Width SD 54.1 fl (35.1-43.9); Red Blood Count 3.75 M/mm3 (4.6-6.2); White Blood Count 5.1 K/mm3 (4.4-11.0)
[2023-01-01 07:20] LABS: Anion Gap 6 (5-15); BUN 26 mg/dL (7-18); BUN/Creat Ratio 16.5 RATIO (10-20); Calcium,Total 7.7 mg/dL (8.5-10.1); Chloride 120 mmol/L (98-107); Creatinine, Serum 1.58 mg/dL (0.70-1.30); EST Glomerular Filtration Rate 49 mL/min (>60); Est Glom Filt Rate - Afr Amer 59 mL/min (>60); Estimated Creatinine Clearance 57.98 ml/min; Glucose 108 mg/dL (74-106); Potassium 3.8 mmol/L (3.5-5.1); Sodium Level 146 mmol/L (136-145)
[2023-01-01] MEDS: Tacrolimus 0.5 MG Capsule PO (09:04)
[2023-01-01 09:05] VITALS: BP 133/87; PULSE 88
[2023-01-01] MEDS: Multivitamins,Therapeutic Tablet 1 TABLET PO (09:05)
[2023-01-01] MEDS: Mycophenolate Mofetil 250 MG Capsule 500 MG PO (09:05)
[2023-01-01] MEDS: Metoprolol Tartrate 25 MG Tablet PO (09:05)
[2023-01-01] MEDS: APIXABAN 5 MG TABLET PO (09:05)
[2023-01-01] MEDS: rifAXIMin 550 MG Tablet PO (09:05)
[2023-01-01] MEDS: Aspirin E.C. 81 MG Tablet PO (09:05)
[2023-01-01] MEDS: Polyethylene Glycol 3350 17 GM PACKET PO (09:06)
[2023-01-01] MEDS: Menthol/Lanolin/Calamine/Znox 113 GM Tube 1 APPLIC TOPICAL (09:10)
[2023-01-01 09:12] VITALS: O2SAT 95
[2023-01-01] MEDS: Linezolid 600 MG 600 MG/300 ML BAG 300 MG IV (09:17)
[2023-01-01 09:28] VITALS: BP 137/88; PULSE 99; RESP 18; TEMP 37.1; O2SAT 97
--- NOTE | 2023-01-01 10:03 | CASEMGMT ---
Social Work Pt does not have LW/POA, declined further information. MARTHA Seymour
[2023-01-01] MEDS: 0.45% Normal Saline 1,000 ML 100 ML IV (10:12)
--- NOTE | 2023-01-01 14:12 | CASEMGMT ---
STUART returned patient's sister Chandraknat's phone call. Chandrakant wanted to make sure patient was going to the [facility] side and transport will be arranged. Chandrakant asked for a call when this is finalized. Anna KING
--- NOTE | 2023-01-01 14:35 | PCM.TXEXTCAR ---
Diet Diet Order/Speech Therapy: 12/28/22 15:29 Diet: Cardiac - Heart Healthy Food consistency:: Regular Liquid Consistency:: Regular/Thin Is pt able to select menu?: Yes Diet Comments: set up / A as needed. Routine Orders/Code Status Suppository Type: Dulcolax 10mg Suppository Frequency: Daily PRN Routine Lab Work: BMP (2-3 days) Code Status: Full Code Wound(s) R femoral: Wound Type: Surgical Incision Therapies Physical Therapy: Eval and Treat Occupational Therapy: Eval and Treat Speech Therapy: Eval and Treat Problem/Diagnosis (1) Non-ST elevated myocardial infarction (non-STEMI): Status: Acute Code(s): I21.4 - Non-ST elevation (NSTEMI) myocardial infarction (2) Hypertension: Status: Chronic Code(s): I10 - Essential (primary) hypertension (3) Hypokalemia: Status: Acute Code(s): E87.6 - Hypokalemia Plan #UTI secondary to Enterococcus faecium #NSTEMI type II #CKD stage IIIb #History of kidney transplant #afib w/ rvr #Hypokalemia resolved #Lower extremity swelling #History of hyperammonemia #History of atonic bladder #Chronic anemia #Hypertension #Depression #MRDD 57-year-old male with history of MDD, atonic bladder with self cath and multiple UTIs in the past and CKD stage IIIb in the setting of history of kidney transplant who presented to [facility] 12/27/2022 for that was substernal in nature and was found to have a troponin of 10,000, he was placed on a heparin and nitro drip and cardiology consulted. Troponin peaked at 24,000 patient had heart catheterization which did not reveal any significant disease and echo with no regional wall motion abnormalities or diastolic dysfunction and EF of 60%. He did have episode of A-fib with RVR and was started on metoprolol with continued elevated heart rates was also started on Cardizem with resolution. Discussed with cardiology and it was felt that NSTEMI was type II possibly secondary to PE versus A-fib with RVR prior to presentation. Given his kidneys and need for contrast with cardiac cath a CTA was deferred as he was going to be on lifelong anticoagulation with Eliquis regardless. The day after heart cath patient did have bump in creatinine despite fluids but this improved. Had some vague complaints of being tired and possibly some abdominal burning though complaints waxed and waned but given history of UTIs UA and urine culture were checked and grew Enterococcus faecium 50,000-80,000 colonies sensitive to linezolid. Given patient is known to ID consult service this was discussed and it was felt it was reasonable to treat with linezolid for 3 days given it was caught very early. On day of discharge patient was evaluated and was whispering and endorsed that he was not able to speak louder than he was present and said it had been going on since the night before. He was swallowing, eating, breathing okay. He was unable to endorse any other symptoms and reported both that his throat did and did not hurt during the same conversation. Spoke with staff who said he was talking doing fine at breakfast and after discussing further it seems the speaking in a whisper changes depending on who is in the room. Discussed with staff and discussed with sister and it appears patient has done something similar in the past with no underlying physiologic etiology identified. Speech therapy evaluated and patient still swallowing well and clearing throat and I recommended regular textures and thin liquids. Recommend that patient be evaluated by speech therapy at [facility] as well. Given inconsistent reporting of symptoms with inconsistent symptom expression (i.e. patient talking fine shortly prior to my evaluation and then endorsing during my exam that he is been having difficulty since last night) in conjunction with history of similar behavior do not feel patient needs to remain in inpatient hospitalization for further evaluation and management. No danger signs or symptoms. Discussed this both with patient's sister and brother and understanding was verbalized and both were in agreement with present plan. Patient had not endorsed any other new complaints on day of discharge. Discharge instructions as follows: DISCHARGE INSTRUCTIONS PLEASE READ *Please take this with you to your next doctors appointment* -You are started on antibiotic for urinary tract infection, linezolid, you will need 1 dose tonight and 2 doses tomorrow and this will be finished - You have had several medication additions, you have been started on Eliquis 5 mg twice daily for atrial fibrillation and will take a baby aspirin as well as atorvastatin for your heart health. -Your heart rate was stabilized on metoprolol tartrate 25 mg twice daily and diltiazem 30 mg every 6 hours, diltiazem will be changed to a longer acting formulation. Over time this regimen may be simplified to 1 medication however given this is what you are stabilized on it is reasonable to continue this regimen at this time while in rehab getting stronger prior to returning to assisted living -Would recommend lab work (BMP) to check your kidney function in 2 to 3 days -Please call your primary care provider's office upon discharge to schedule a hospital follow up within 1 week. -For any concerning signs or symptoms please call 911 or proceed to the nearest emergency department Allergies/Procedures Done in Hospital Allergies red dye Allergy (Verified 11/01/22 21:52) PT UNSURE OF REACTION Procedures: Cardiac catheterization and Transthoracic Echo Type of Care/Length of Stay Estimated LOS: Convalescent Care Less Than 30 days Type of Care Needed: Skilled Rehab Potential: Fair Prognosis: Fair Additional Orders/Day of Discharge Day of Discharge: 01/01/23 Dietary and Speech Recommendations Dietitian Recommendations/Changes: RD will change diet to Cardiac to manage medical conditions. Discharge Plan Admission Admit Date/Time: 12/27/22 22:03 Primary Reason for Your Visit: Chest pain Attending Provider: Linda Mercer Primary Care Provider: Mike Bella Consulting Providers: Vicente Alcaraz; Stella Bell Instructions Patient Instructions: ED Fall Prevention Additional Instructions / Restrictions: DISCHARGE INSTRUCTIONS PLEASE READ *Please take this with you to your next doctors appointment* -You are started on antibiotic for urinary tract infection, linezolid, you will need 1 dose tonight and 2 doses tomorrow and this will be finished - You have had several medication additions, you have been started on Eliquis 5 mg twice daily for atrial fibrillation and will take a baby aspirin as well as atorvastatin for your heart health. -Your heart rate was stabilized on metoprolol tartrate 25 mg twice daily and diltiazem 30 mg every 6 hours, diltiazem will be changed to a longer acting formulation. Over time this regimen may be simplified to 1 medication however given this is what you are stabilized on it is reasonable to continue this regimen at this time while in rehab getting stronger prior to returning to assisted living -Would recommend lab work (BMP) to check your kidney function in 2 to 3 days -Please call your primary care provider's office upon discharge to schedule a hospital follow up within 1 week. -For any concerning signs or symptoms please call 911 or proceed to the nearest emergency department Discharge Orders/Prescriptions Prescriptions: New Eliquis 5 mg Tablet 5 mg PO BID Qty: 0 0RF atorvastatin 40 mg tablet 40 mg PO QHS Qty: 30 0RF diltiazem HCl [Cardizem LA] 120 mg tablet extended release 24 hr 120 mg PO DAILY Qty: 30 0RF metoprolol tartrate 25 mg Tablet 25 mg PO BID Qty: 0 0RF linezolid 600 mg tablet 600 mg PO BID 2 Days Qty: 3 0RF Continued mycophenolate mofetil 500 MG tablet 500 mg PO 0900,2100 Patient Comments: anti rejection multivitamin Tablet 1 tab PO DAILY acetaminophen [Tylenol] 325 mg Tablet 650 mg PO Q6H PRN PRN (Reason: Pain 1-10 Or Fever>100.7) Qty: 0 0RF lactulose 20 gram/30 mL solution 30 ml PO Q4 tacrolimus [Prograf] 1 mg Capsule 0.5 mg PO Q12H sodium bicarbonate 650 mg tablet 1,300 mg PO TID Xifaxan 550 mg tablet 550 mg PO BID mirtazapine 30 mg tablet 30 mg PO QHS bismuth subsalicylate [Pepto-Bismol] 262 mg/15 mL suspension 524 mg PO Q30M PRN (Reason: GI DISTRESS) Rx Instructions: do not exceed 8 doses in a 24 hour period bisacodyl 10 mg suppository 10 mg [place] DAILY PRN (Reason: constipation) mineral oil [Fleet Mineral Oil] Enema 118 ml [place] DAILY PRN (Reason: constipation) Rx Instructions: discard any unused portion magnesium hydroxide [Dulcolax (magnesium hydroxide)] 400 mg/5 mL suspension 5 ml PO DAILY PRN (Reason: constipation) Referrals / Follow Up: Mike Bella MD [Primary Care Provider] - Within 1 Week Disposition Disposition (needs filled in before D/C Order can be placed): Residential Facility
--- NOTE | 2023-01-01 14:55 | DS.PCM_ITS ---
Providers Date of Admission: 12/27/22 Date of Discharge: 01/01/23 Primary Care Physician: Dr. Mike Bella MD Consultations 12/28/22 00:06 Consult: Cardiology Routine Consulting Provider: Vicente Alcaraz Reason for Consult: NSTEMI EMERGENT Consult: No MD Notified: Yes Date Notified: 12/28/22 Time Notified: 06:09 Method of Notification: Text Reason For Visit: NSTEMI Diagnosis Discharge Diagnosis (1) Non-ST elevated myocardial infarction (non-STEMI): Status: Acute Code(s): I21.4 - Non-ST elevation (NSTEMI) myocardial infarction (2) Hypertension: Status: Chronic Code(s): I10 - Essential (primary) hypertension (3) Hypokalemia: Status: Acute Code(s): E87.6 - Hypokalemia Plan #UTI secondary to Enterococcus faecium #NSTEMI type II #CKD stage IIIb #History of kidney transplant #afib w/ rvr #Hypokalemia resolved #Lower extremity swelling #History of hyperammonemia #History of atonic bladder #Chronic anemia #Hypertension #Depression #MRDD Medications at Discharge Home Medications mycophenolate mofetil 500 mg tablet 500 mg PO 0900,2100 Anti-Rejection 07/14/16 multivitamin 1 tab PO DAILY supplement 02/13/22 acetaminophen 325 mg tablet (Tylenol) 650 mg (2 x 325 mg) PO Q6H PRN PRN Pain 1- 10 Or Fever>100.7 #0 tabs 04/21/22 lactulose 20 gram/30 mL oral solution 30 ml PO Q4 hyperammonemia 06/13/22 rifaximin 550 mg tablet (Xifaxan) 550 mg PO BID Check with primary doctor 07/16/22 sodium bicarbonate 650 mg tablet 1,300 mg PO TID Check with primary doctor 07/01 10/23 tacrolimus 1 mg capsule, immediate-release (Prograf) 0.5 mg PO Q12H Check with primary doctor 07/16/22 bisacodyl 10 mg rectal suppository 10 mg AZ DAILY PRN constipation 11/01/22 bismuth subsalicylate 262 mg/15 mL oral suspension (Pepto-Bismol) 524 mg PO Q30M PRN GI DISTRESS 11/01/22 magnesium hydroxide 400 mg/5 mL oral suspension (Dulcolax (magnesium hydroxide)) 5 ml PO DAILY PRN constipation 11/01/22 mineral oil (Fleet Mineral Oil enema) 118 ml [place] DAILY PRN constipation 11/01/22 mirtazapine 30 mg tablet 30 mg PO QHS depression 11/01/22 apixaban 5 mg tablet (Eliquis) 5 mg PO BID #0 tabs 01/01/23 atorvastatin 40 mg tablet 40 mg PO QHS #30 tabs 01/01/23 diltiazem HCl 120 mg tablet,extended release 24 hr (Cardizem LA) 120 mg PO DAILY #30 tabs 01/01/23 linezolid 600 mg tablet 600 mg PO BID 2 days #3 tabs 01/01/23 metoprolol tartrate 25 mg tablet 25 mg PO BID #0 tabs 01/01/23 Hospital Course Procedures Cardiac catheterization and Transthoracic echo Summary of Care Provided Minutes Spent on Discharge: 50 Hospital Course: 57-year-old male with history of MDD, atonic bladder with self cath and multiple UTIs in the past and CKD stage IIIb in the setting of history of kidney transplant who presented to [facility] 12/27/2022 for that was substernal in nature and was found to have a troponin of 10,000, he was placed on a heparin and nitro drip and cardiology consulted. Troponin peaked at 24,000 patient had heart catheterization which did not reveal any significant disease and echo with no regional wall motion abnormalities or diastolic dysfunction and EF of 60%. He did have episode of A-fib with RVR and was started on metoprolol with continued elevated heart rates was also started on Cardizem with resolution. Discussed with cardiology and it was felt that NSTEMI was type II possibly secondary to PE versus A-fib with RVR prior to presentation. Given his kidneys and need for contrast with cardiac cath a CTA was deferred as he was going to be on lifelong anticoagulation with Eliquis regardless. The day after heart cath patient did have bump in creatinine despite fluids but this improved. Had some vague complaints of being tired and possibly some abdominal burning though complaints waxed and waned but given history of UTIs UA and urine culture were checked and grew Enterococcus faecium 50,000-80,000 colonies sensitive to linezolid. Given patient is known to ID consult service this was discussed and it was felt it was reasonable to treat with linezolid for 3 days given it was caught very early. On day of discharge patient was evaluated and was whispering and endorsed that he was not able to speak louder than he was present and said it had been going on since the night before. He was swallowing, eating, breathing okay. He was unable to endorse any other symptoms and reported both that his throat did and did not hurt during the same conversation. Spoke with staff who said he was talking doing fine at breakfast and after discussing further it seems the speaking in a whisper changes depending on who is in the room. Discussed with staff and discussed with sister and it appears patient has done something similar in the past with no underlying physiologic etiology identified. Speech therapy evaluated and patient still swallowing well and clearing throat and I recommended regular textures and thin liquids. Recommend that patient be evaluated by speech therapy at [facility] as well. Given inconsistent reporting of symptoms with inconsistent symptom expression (i.e. patient talking fine shortly prior to my evaluation and then endorsing during my exam that he is been having difficulty since last night) in conjunction with history of similar behavior do not feel patient needs to remain in inpatient hospitalization for further evaluation and management. No danger signs or symptoms. Discussed this both with patient's sister and brother and understanding was verbalized and both were in agreement with present plan. Patient had not endorsed any other new complaints on day of discharge. Discharge instructions as follows: DISCHARGE INSTRUCTIONS PLEASE READ *Please take this with you to your next doctors appointment* -You are started on antibiotic for urinary tract infection, linezolid, you will need 1 dose tonight and 2 doses tomorrow and this will be finished - You have had several medication additions, you have been started on Eliquis 5 mg twice daily for atrial fibrillation and will take a baby aspirin as well as atorvastatin for your heart health. -Your heart rate was stabilized on metoprolol tartrate 25 mg twice daily and diltiazem 30 mg every 6 hours, diltiazem will be changed to a longer acting formulation. Over time this regimen may be simplified to 1 medication however given this is what you are stabilized on it is reasonable to continue this regimen at this time while in rehab getting stronger prior to returning to assisted living -Would recommend lab work (BMP) to check your kidney function in 2 to 3 days -Please call your primary care provider's office upon discharge to schedule a hospital follow up within 1 week. -For any concerning signs or symptoms please call 911 or proceed to the nearest emergency department Physical Exam Narrative General: Alert, answers questions but has difficulty with consistent reporting regarding throat and voice, no acute distress HEENT: Atraumatic, no swelling or lymphadenopathy palpated on neck, patient uses whispering voice and would not attempt to cough or say a lot, free movement of tongue with no swelling in mouth appreciated Eyes: Anicteric Neck: Supple, no swelling or lymphadenopathy Respiratory: Clear to auscultation bilaterally Cardiovascular: Regular rate GI: Nondistended Extremities: Slight swelling in lower extremities right greater than left, chronic Musculoskeletal: Moving all extremities Neuro: No overt focal neurological deficits Skin: No rashes appreciated Psych: Overall cooperative Weight / BMI Weight Weight: 96.2 kg Body Mass Index (BMI) 28.7 ABG / Lab / Microbiology Data 01/01/23 06:03 01/01/23 06:03 Laboratory: Laboratory Results - last 24 hr 01/01/23 06:03: WBC 5.1, RBC 3.75 L, Hgb 10.5 L, Hct 34.5 L, MCV 92.0, MCH 28.0, MCHC 30.4 L D, RDW Std Deviation 54.1 H, RDW Coeff of Anil 16.2 H, Plt Count 168, MPV 10.9, Immature Gran % (Auto) 0.600, Neut % (Auto) 62.3, Lymph % (Auto) 14.0 L, [place] % (Auto) 12.8 H, Eos % (Auto) 9.5 H, Baso % (Auto) 0.8, Absolute Neuts (auto) 3.2, Absolute Lymphs (auto) 0.72 L, Nucleated RBC % 0, Sodium 146 H, Potassium 3.8, Chloride 120 H, Carbon Dioxide 20.0 L, Anion Gap 6, BUN 26 H, Creatinine 1.58 H, Estim Creat Clear Calc 57.98, Est GFR (MDRD) Af Amer 59 L, Est GFR (MDRD) Non-Af 49 L, BUN/Creatinine Ratio 16.5, Glucose 108 H, Calcium 7.7 L Microbiology: Microbiology 12/29/22 17:25 Urine Catheter - Ga Urine Culture - Final Enterococcus faecium 12/31/22 14:40 Nasal Secretion SARS-CoV-2 Antigen (Rapid) - Final Radiography Diagnostic Testing: Radiology Impression Chest X-Ray 12/31/22 15:45 IMPRESSION: Grossly no change to slight worsening in bilateral intersitial and airspace opacities. No other significant change from prior study. Electronically Signed: Chino Puri MD at 18:01 EDT Reading Location ID and State: [address] [place] [address] Tel , Service support , D/C Instructions Discharge Diet: No restrictions Discharge Activity: - (Return to activity as tolerated) Meaningful Use Info Meaningful Use Diagnoses (Choose all that apply): None applicable Discharge Plan Admission Admit Date/Time: 12/27/22 22:03 Primary Reason for Your Visit: Chest pain Attending Provider: Linda Mercer Primary Care Provider: Mike Bella Consulting Providers: Vicente Alcaraz; Stella Bell Instructions Patient Instructions: ED Fall Prevention Additional Instructions / Restrictions: DISCHARGE INSTRUCTIONS PLEASE READ *Please take this with you to your next doctors appointment* -You are started on antibiotic for urinary tract infection, linezolid, you will need 1 dose tonight and 2 doses tomorrow and this will be finished - You have had several medication additions, you have been started on Eliquis 5 mg twice daily for atrial fibrillation and will take a baby aspirin as well as atorvastatin for your heart health. -Your heart rate was stabilized on metoprolol tartrate 25 mg twice daily and diltiazem 30 mg every 6 hours, diltiazem will be changed to a longer acting formulation. Over time this regimen may be simplified to 1 medication however given this is what you are stabilized on it is reasonable to continue this regimen at this time while in rehab getting stronger prior to returning to assisted living -Would recommend lab work (BMP) to check your kidney function in 2 to 3 days -Please call your primary care provider's office upon discharge to schedule a hospital follow up within 1 week. -For any concerning signs or symptoms please call 911 or proceed to the nearest emergency department Discharge Orders/Prescriptions Prescriptions: New Eliquis 5 mg Tablet 5 mg PO BID Qty: 0 0RF atorvastatin 40 mg tablet 40 mg PO QHS Qty: 30 0RF diltiazem HCl [Cardizem LA] 120 mg tablet extended release 24 hr 120 mg PO DAILY Qty: 30 0RF metoprolol tartrate 25 mg Tablet 25 mg PO BID Qty: 0 0RF linezolid 600 mg tablet 600 mg PO BID 2 Days Qty: 3 0RF Continued mycophenolate mofetil 500 MG tablet 500 mg PO 0900,2100 Patient Comments: anti rejection multivitamin Tablet 1 tab PO DAILY acetaminophen [Tylenol] 325 mg Tablet 650 mg PO Q6H PRN PRN (Reason: Pain 1-10 Or Fever>100.7) Qty: 0 0RF lactulose 20 gram/30 mL solution 30 ml PO Q4 tacrolimus [Prograf] 1 mg Capsule 0.5 mg PO Q12H sodium bicarbonate 650 mg tablet 1,300 mg PO TID Xifaxan 550 mg tablet 550 mg PO BID mirtazapine 30 mg tablet 30 mg PO QHS bismuth subsalicylate [Pepto-Bismol] 262 mg/15 mL suspension 524 mg PO Q30M PRN (Reason: GI DISTRESS) Rx Instructions: do not exceed 8 doses in a 24 hour period bisacodyl 10 mg suppository 10 mg AZ DAILY PRN (Reason: constipation) mineral oil [Fleet Mineral Oil] Enema 118 ml AZ DAILY PRN (Reason: constipation) Rx Instructions: discard any unused portion magnesium hydroxide [Dulcolax (magnesium hydroxide)] 400 mg/5 mL suspension 5 ml PO DAILY PRN (Reason: constipation) Referrals / Follow Up: Mike Bella MD [Primary Care Provider] - Within 1 Week Disposition Disposition (needs filled in before D/C Order can be placed): [facility] Facility Charges/Coding Visit Charges Inpatient E&M: 44183 Disch Hosp >30min
[2023-01-01 15:10] VITALS: BP 129/74; PULSE 82; RESP 16; TEMP 36.6; O2SAT 97
--- NOTE | 2023-01-01 15:27 | CASEMGMT ---
Patient is being discharged to [facility] under skilled level of care. SW completed 7000 in [facility] system. [facility] patient. Plan: d/c to [facility] under skilled level of care on a convalescent stay. Anna KING
--- NOTE | 2023-01-01 16:00 | NURSING ---
report called to [facility] at [facility]. Pick time scheduled for 1700
--- NOTE | 2023-01-01 16:34 | CASEMGMT ---
Discharge Planning Discharge orders, signed med list and transport time sent to [facility] via [facility]. [facility] will transport patient by wheelchair at 5p. Nursing, SW, patient, his mother, and brother all updated. Asked brother to notify his sister as I was unable to leave a message for her. Joanna Lee, Discharge Planning Asst.
== END 2023-01-01 18:35 | disposition skilled nursing facility (03) | DRG 281 ==
LOC: ED 21:41 → PCU 23:16
PROVIDERS: Admitting Provider Internal Medicine; Emergency Provider Emergency Medicine; PCP Family Medicine; Visit Provider Internal Medicine
DX: I48.0 Paroxysmal atrial fibrillation (principal); I21.A1 Myocardial infarction type 2; Z94.0 Kidney transplant status; N39.0 Urinary tract infection, site not specified; N18.32 Chronic kidney disease, stage 3b; I12.9 Hypertensive chronic kidney disease with stage 1 through stage 4 chronic kidney disease, or unspecified chronic kidney disease; F32.A Depression, unspecified; D64.9 Anemia, unspecified; E87.6 Hypokalemia; M79.89 Other specified soft tissue disorders; F32.9 Major depressive disorder, single episode, unspecified; B95.2 Enterococcus as the cause of diseases classified elsewhere; Z79.01 Long term (current) use of anticoagulants; F79 Unspecified intellectual disabilities; Z87.440 Personal history of urinary (tract) infections; Z87.01 Personal history of pneumonia (recurrent)
CPT/HCPCS: 36415; 71045; 80048; 80053; 80061; 81001; 83735; 84100; 84443; 84484; 85025; 85610; 85730; 87077; 87086; 87088; 87186; 87426; 92610; 93005; 93306; 93454; 93970; 94668; 97110; 97162; 97166; 97530; 97535; 97802; 99152; 99153; 99285; J2020; J7030; J7120; Q9967; A4216; C1760; C1769

== ENCOUNTER 2023-01-07 09:04 | Outpatient (CLI) | payer MEDICARE, MEDICAID, SELFPAY ==
[2023-01-07 09:33] VITALS: BP 111/55; PULSE 79; RESP 18; TEMP 36.5; O2SAT 99; BMI 26.4
[2023-01-07 09:54] VITALS: BP 120/62; PULSE 79; RESP 16; TEMP 36.6; O2SAT 99
[2023-01-07 10:54] VITALS: BP 112/65; PULSE 79; RESP 16; TEMP 36.4
[2023-01-07 12:00] VITALS: BP 126/69; PULSE 82; RESP 16; TEMP 36.6; O2SAT 99
[2023-01-07 13:00] VITALS: BP 120/62; PULSE 83; RESP 16; TEMP 36.6
[2023-01-07 13:47] VITALS: BP 122/69; PULSE 82; RESP 16; TEMP 36.6; O2SAT 97
== END 2023-01-07 09:05 | disposition home or self-care (01) ==
LOC: MEDOUTP 09:05
PROVIDERS: PCP Family Medicine; Referring Provider Nurse Practitioner Family; Visit Provider Nurse Practitioner Family
DX: D64.9 Anemia, unspecified (principal)
CPT/HCPCS: 36415; 36430; 86850; 86900; 86901; 86920; 86922; J7040; P9016; A4216

== ENCOUNTER → 2023-01-14 | Outpatient (CLI) | payer MEDICARE, MEDICAID, SELFPAY ==
[2023-01-14 17:57] LABS: Absolute Lymphocyte Count 0.76 X10^3/uL (0.83-4.51); Absolute Neutrophil Count 2.3 X10^3/uL (2.0-7.7); Basophil# 0.05 X10^3/uL; Basophil% 1.2 % (0-1); Eosinophil# 0.39 X10^3/uL; Eosinophils% 9.4 % (0-5); Hematocrit 31.5 % (40-54); Hemoglobin 9.9 g/dL (13.0-16.5); Lymphocyte # 0.76 X10^3/ul (0.83-4.51); Lymphocyte % 18.3 % (19-41); Mean Corp Hgb Conc 31.4 g/dL (32-36); Mean Corpuscular Hgb 28.9 pg (27.0-32.0); Mean Corpuscular Volume 92.1 fL (80-94); Mean Platelet Vol. 10.6 fl (6.2-12.0); Monocyte% 16.8 % (0-10); NRBC Flagged by Analyzer 0 % (0-5); Neutrophil # 2.25 X10^3/uL (2.7-7.7); Neutrophil % 54.1 % (47-70); Platelet Count 226 K/mm3 (150-450); RBC Distribution Width CV 16.1 % (11.6-14.6); RBC Distribution Width SD 54.1 fl (35.1-43.9); Red Blood Count 3.42 M/mm3 (4.6-6.2); White Blood Count 4.2 K/mm3 (4.4-11.0)
[2023-01-14 18:23] LABS: Anion Gap 5 (5-15); BUN 14 mg/dL (7-18); BUN/Creat Ratio 10.1 RATIO (10-20); Calcium,Total 8.1 mg/dL (8.5-10.1); Chloride 114 mmol/L (98-107); Creatinine, Serum 1.38 mg/dL (0.70-1.30); EST Glomerular Filtration Rate 57 mL/min (>60); Est Glom Filt Rate - Afr Amer 69 mL/min (>60); Glucose 98 mg/dL (74-106); Potassium 4.1 mmol/L (3.5-5.1); Sodium Level 143 mmol/L (136-145)
== END | disposition home or self-care (01) ==
LOC: MTLAB 15:09
PROVIDERS: PCP Family Medicine; Visit Provider Family Medicine
DX: D64.9 Anemia, unspecified (principal)
CPT/HCPCS: 36415; 80048; 85025

== ENCOUNTER 2023-01-15 07:46 | Outpatient (RCR) | payer MEDICARE, MEDICAID, SELFPAY ==
[2023-01-15 09:04] LABS: Hematocrit 30.2 % (40-54); Hemoglobin 9.6 g/dL (13.0-16.5); Mean Corp Hgb Conc 31.8 g/dL (32-36); Mean Corpuscular Hgb 29.2 pg (27.0-32.0); Mean Corpuscular Volume 91.8 fL (80-94); Mean Platelet Vol. 9.6 fl (6.2-12.0); Platelet Count 209 K/mm3 (150-450); RBC Distribution Width CV 16.3 % (11.6-14.6); RBC Distribution Width SD 53.7 fl (35.1-43.9); Red Blood Count 3.29 M/mm3 (4.6-6.2); White Blood Count 4.5 K/mm3 (4.4-11.0)
[2023-01-15 09:38] LABS: Albumin, Serum 2.5 g/dL (3.2-5.0); BUN 15 mg/dL (7-18); BUN/Creat Ratio 9.7 RATIO (10-20); Chloride 115 mmol/L (98-107); Creatinine, Serum 1.54 mg/dL (0.70-1.30); EST Glomerular Filtration Rate 50 mL/min (>60); Est Glom Filt Rate - Afr Amer 61 mL/min (>60); Glucose 107 mg/dL (74-106); Phosphorus 3.6 mg/dL (2.5-4.9); Potassium 4.1 mmol/L (3.5-5.1); Sodium Level 143 mmol/L (136-145)
[2023-01-15 09:56] LABS: Protein, Urine (Random) 57.8 mg/dL (<11.9); Protein:Creat Ratio 802 mg/g CRE (0-200)
[2023-01-15 10:02] LABS: PTHIN 91.4 pg/mL (18.4-80.1)
[2023-01-15 10:05] LABS: Vitamin D,25 Hydroxy 41.4 ng/mL
[2023-01-18 11:08] LABS: Tacrolimus (FK506) 6.2 ng/mL (2.0-20.0)
== END 2023-01-15 18:00 | disposition home or self-care (01) ==
LOC: LAB 07:46
PROVIDERS: Family Provider Family Medicine; PCP Family Medicine; Referring Provider Internal Medicine Nephrology; Visit Provider Internal Medicine Nephrology
DX: Z94.0 Kidney transplant status (principal); D89.9 Disorder involving the immune mechanism, unspecified
CPT/HCPCS: 36415; 80069; 80197; 82306; 82570; 83970; 84156; 85027

== ENCOUNTER 2023-01-15 13:47 | Observation (INO) | payer MEDICARE, MEDICAID, SELFPAY ==
[2023-01-15] VITALS (7 sets, daily range): BP systolic 107–158; BP diastolic 68–96; PULSE 85–91; RESP 16–19; TEMP 35.7–37.1; O2SAT 95–100; BMI 28.6; BMI 27.1
--- NOTE | 2023-01-15 13:53 | ED.RN ---
SELF CATH'S, USES SZ 14FR
--- NOTE | 2023-01-15 14:24 | EKG12_ITS ---
Test Reason : CHEST PAIN Blood Pressure : / mmHG Vent. Rate : 090 BPM Atrial Rate : 090 BPM P-R Int : 162 ms QRS Dur : 088 ms QT Int : 386 ms P-R-T Axes : 055 003 064 degrees QTc Int : 472 ms Normal sinus rhythm Nonspecific T wave abnormality Prolonged QT Abnormal ECG When compared with ECG of 31-DEC-2022 05:25, MANUAL COMPARISON REQUIRED, DATA IS UNCONFIRMED Confirmed by SUSAN MORENO, RAEANN ([id number]), editor at large MART SOTELO ([id number]) on 01/20/2023 10:22:23 AM Referred By: SHANNON Confirmed By:RAEANN DAVIS MD
--- NOTE | 2023-01-15 14:24 | RAD_ITS ---
STUDY: X-RAY CHEST REASON FOR EXAM: Male, 57 years old. Chest pain -- -- MX COMPLAINTS, HARD OF HEARING, SISTER IS HISTORIAN. CHEST PAIN, HEADACHE, NAUSEA, POSSIBLE FLUID RETENTION, GI BLEED. RECENT ID, ADMITTED TO [facility]. OFF BLOOD THINNERS CURRENTLY. TECHNIQUE: Single AP portable view of the chest. COMPARISON: Comparison is made with prior study December 31, 2022. FINDINGS: EKG electrodes are seen. Vascular congestion and mild degree of CHF. There is no demonstrated pleural abnormality. There is moderate cardiac enlargement. Normal mediastinum and alton. Normal visualized pulmonary arteries. Normal visualized aortic arch and descending thoracic aorta. There are diffuse degenerative changes of the visualized thoracic spine. Normal visualized ribs, clavicles, and shoulders. There is no demonstrated abnormality of the visualized soft tissue structures of the upper abdomen. RAD/Chest 1 View (Portable) IMPRESSION: Cardiomegaly. Mild degree of vascular congestion. Electronically Signed: Manolo Julian MD at 15:10 EDT ,
[2023-01-15 14:48] LABS: Absolute Lymphocyte Count 0.95 X10^3/uL (0.83-4.51); Absolute Neutrophil Count 2.6 X10^3/uL (2.0-7.7); Basophil# 0.04 X10^3/uL; Basophil% 0.8 % (0-1); Eosinophil# 0.36 X10^3/uL; Eosinophils% 7.6 % (0-5); Hematocrit 29.8 % (40-54); Hemoglobin 9.4 g/dL (13.0-16.5); Lymphocyte # 0.95 X10^3/ul (0.83-4.51); Mean Corp Hgb Conc 31.5 g/dL (32-36); Mean Corpuscular Hgb 28.8 pg (27.0-32.0); Mean Corpuscular Volume 91.4 fL (80-94); Mean Platelet Vol. 11.3 fl (6.2-12.0); Monocyte# 0.77 X10^3/uL; Monocyte% 16.2 % (0-10); NRBC Flagged by Analyzer 0 % (0-5); Neutrophil # 2.62 X10^3/uL (2.7-7.7); Neutrophil % 55.2 % (47-70); Platelet Count 227 K/mm3 (150-450); RBC Distribution Width CV 16.5 % (11.6-14.6); RBC Distribution Width SD 53.1 fl (35.1-43.9); Red Blood Count 3.26 M/mm3 (4.6-6.2); White Blood Count 4.8 K/mm3 (4.4-11.0)
--- NOTE | 2023-01-15 14:54 | ED.RN ---
called pharmacy to inquire about protonix
[2023-01-15 15:09] LABS: AST(SGOT) 63 U/L (15-37); Alanine Aminotransfer ALT/SGPT 54 U/L (16-61); Albumin, Serum 2.4 g/dL (3.2-5.0); Alkaline Phosphatase 130 U/L (45-117); Anion Gap 5 (5-15); BUN 15 mg/dL (7-18); BUN/Creat Ratio 10.1 RATIO (10-20); Bilirubin, Direct 0.25 mg/dL (0.00-0.30); Calcium,Total 7.9 mg/dL (8.5-10.1); Chloride 114 mmol/L (98-107); Creatinine, Serum 1.48 mg/dL (0.70-1.30); EST Glomerular Filtration Rate 52 mL/min (>60); Est Glom Filt Rate - Afr Amer 63 mL/min (>60); Globulin 3.6 g/dL (2.2-4.2); Glucose 92 mg/dL (74-106); Lipase 64 U/L (13-75); Potassium 4.6 mmol/L (3.5-5.1); Sodium Level 142 mmol/L (136-145); Troponin-I HS (w/2H Reflex) 37 pg/mL (3.0-78.0)
[2023-01-15] MEDS: Pantoprazole Sodium 80 MG in 0.9% Normal Saline (50mL Bag) 15 ML 420 MG IV BOLUS (15:09)
[2023-01-15 15:32] LABS: Mucous, Urine 0 SEEN /hpf (<or=2+); Squamous Epithelial Cells - UA 0 SEEN /hpf (0-5)
[2023-01-15 16:00] LABS: Color, Urine Yellow (Yellow); Glucose, Dipstick Normal (Normal); Ketone-Dipstick Negative (Negative); Protein-Dipstick 30 mg/dl (Negative); Urine Bilirubin Dipstick Negative (Negative); Urine Clarity Sl Cloudy (Clear)
[2023-01-15 16:01] LABS: Leukocyte Esterase-Dipstick Negative /ul (Negative); Nitrite-Dipstick POSITIVE (Negative); Occult Blood-Urine 25 /ul (Negative); Urine Urobilinogen Normal (Normal); White Blood Cells 0-5 SEEN /hpf (0-5)
[2023-01-15 16:02] LABS: Bacteria 1+ /hpf (None Seen); Red Blood Cells-Urine 0-5 SEEN /hpf (0-5)
[2023-01-15 16:42] LABS: Reflex Troponin-HS? (from REC) Y
[2023-01-15] MEDS: Mag Hydrox/Al Hydrox/Simeth 30 ML UDC PO (16:59)
[2023-01-15 17:15] LABS: Troponin-I HS 31 pg/mL (3.0-78.0)
--- NOTE | 2023-01-15 18:22 | HP.PCM.HOS_ITS ---
HPI - General General Date of Admission: 01/15/23 Date of Service: 01/15/23 Chief Complaint: Abdominal and chest pain HPI Narrative ROOSEVELT GARCIA, is a 57-year-old male with history of MDD, atonic bladder with self cath and multiple UTIs in the past and CKD stage IIIb in the setting of history of kidney transplant who presented to [facility] 01/15/2023 with some general complaints of abdominal and chest pain and weakness. No family at bedside and patient somewhat poor and inconsistent historian so history primarily obtained per report. [facility] and began complaining of what was considered chest pain. In the ED he had a BNP of 300 with no previous values available, troponin negative, UA with nitrite and 1+ bacteria but no leuk esterase or white blood cells and no urinary symptoms. He was given Protonix and viscous lidocaine and Mylanta and hospitalist consulted due to complaints that he was too weak to get up and walk. Patient evaluated at bedside and he reports pain in his chest but when asked more specifically said its like in the cervical from his abdomen up to his chest and he also reports it hurts to talk. Denied any problems with his breathing or any changes in his lower extremity swelling, denied any burning on urination. Did not seem to have any nausea or vomiting and he reports he does not remember the last time he had a bowel movement. No report of blood in stool however on chart review it was mentioned that he is not taking his Eliquis due to blood in stool that he has not had any in over a week, patient poor historian unable to give any further information and no family at bedside [facility] Medical History Anemia in chronic illness Bladder dysfunction Bronchitis Chronic kidney disease, stage 3b CKD (chronic kidney disease), stage III Congenital nystagmus DVT (deep venous thrombosis) History of DVT (deep vein thrombosis) History of encephalopathy History of pulmonary embolism HTN (hypertension) Immunosuppressed status Mild intellectual disability Neurogenic bladder disorder Neutropenia Pancytopenia Pulmonary embolism Severe protein-calorie malnutrition Urinary retention Vocal cord dysfunction Home Medications mycophenolate mofetil 500 mg tablet 500 mg PO BID TRANSPLANT ANTI-REJECTION 07/14/16 [History Last Taken 01/15/23] multivitamin 1 tab PO DAILY SUPPLEMENT 02/13/22 [History Last Taken 01/15/23] lactulose 20 gram/30 mL oral solution 30 ml PO TID CONSTIPATION 06/13/22 [History Last Taken 01/15/23] rifaximin 550 mg tablet (Xifaxan) 550 mg PO BID ANTIBIOTIC 07/16/22 [History Last Taken 01/15/23] sodium bicarbonate 650 mg tablet 1,300 mg PO TID HEARTBURN/INDIGESTION 07/16/22 [History Last Taken 01/15/23] bisacodyl 10 mg rectal suppository 10 mg NE DAILY PRN CONSTIPATION 11/01/22 [History Last Taken Unknown] bismuth subsalicylate 262 mg/15 mL oral suspension (Pepto-Bismol) 524 mg PO Q30M PRN UPSET STOMACH 11/01/22 [History Last Taken Unknown] magnesium hydroxide 400 mg/5 mL oral suspension (Dulcolax (magnesium hydroxide)) 30 ml PO Q24H PRN CONSTIPATION 11/01/22 [History Last Taken Unknown] mineral oil (Fleet Mineral Oil enema) 118 ml NE DAILY PRN CONSTIPATION 11/01/22 [History Last Taken Unknown] mirtazapine 30 mg tablet 30 mg PO QHS DEPRESSION 11/01/22 [History Last Taken 01/14/23] atorvastatin 40 mg tablet 40 mg PO QHS CHOLESTEROL #30 tabs 01/01/23 [Rx Last Taken 01/14/23] diltiazem HCl 120 mg tablet,extended release 24 hr (Cardizem LA) 120 mg PO DAILY BLOOD PRESSURE #30 tabs 01/01/23 [Rx Last Taken 01/15/23] metoprolol tartrate 25 mg tablet 25 mg PO BID BLOOD PRESSURE #0 tabs 01/01/23 [Rx Last Taken 01/15/23] acetaminophen 325 mg tablet (Tylenol) 650 mg PO Q6H PRN PAIN 1-10 OR FEVER >100.7 01/15/23 [History Last Taken Unknown] tacrolimus 0.5 mg capsule, immediate-release 0.5 mg PO BID TRANSPLANT ANTI- REJECTION 01/15/23 [History Last Taken 01/15/23] Allergy/AdvReac Type Severity Reaction Status Date / Time red dye Allergy PT UNSURE Verified 01/07/23 09:36 OF REACTION Family History Mother Hypertension Father Diabetes Surgical History Kidney transplant recipient Renal transplant recipient S/P arteriovenous (AV) fistula creation Social History household members: none housing: residential Smoking Status: Never smoker second hand exposure: No alcohol intake: never substance use type: does not use caffeine: No ROS ROS Narrative General: Denies fever/chills HENT: Denies headache, denies stuffy nose, reports he feels it is painful to talk EYES: Denies changes in vision Resp: Denies cough, denies shortness of breath Cardiac: Has abdominal pain that radiates up to his chest GI: Abdominal pain and he is unsure when he had his last bowel movement, denies nausea/vomiting : Denies changes in urination Extremity: No changes to his peripheral edema MSK: Possibly some generalized weakness Neuro: Denies any numbness/tingling Heme: Denies any bleeding or bruising Skin: Denies rashes Psychiatric: No complaints voiced Vital Signs Vital Signs Vital Signs: 01/15/23 13:48 01/15/23 13:53 01/15/23 15:04 Temperature 98.2 F Temperature Source Oral Pulse Rate 91 90 Respiratory Rate 19 H 18 Respiratory Effort Normal Non-Labored Blood Pressure 134/90 H 133/87 H Blood Pressure Mean 104 102 Pulse Ox 97 98 Oxygen Delivery Method Room Air Room Air 01/15/23 17:00 01/15/23 17:54 Temperature 96.3 F L Temperature Source Temporal Pulse Rate 87 87 Respiratory Rate 16 16 Respiratory Effort Blood Pressure 158/96 H 158/96 H Blood Pressure Mean 116 116 Pulse Ox 98 98 Oxygen Delivery Method Room Air Room Air Weight Weight: 95.708 kg Body Mass Index (BMI) 28.6 Physical Exam Narrative General: Alert, no apparent distress HEENT: Atraumatic, normocephalic Eyes: Anicteric, normal conjunctiva, extraocular movements grossly intact Neck: Supple Respiratory: Somewhat diminished at the bases, normal respiratory effort Cardiovascular: Regular rate and rhythm GI: Soft, somewhat tender diffusely without rebound, guarding, rigidity, slightl y distended Extremities: 1-2+ lower extremity edema Musculoskeletal: Moving all extremities Neuro: No overt focal neurological deficits Skin: No rashes appreciated Psych: Cooperative Results Lab / Micro Data 01/15/23 14:30 01/15/23 14:30 Labs: Laboratory Results - last 24 hr 01/15/23 14:30: WBC 4.8, RBC 3.26 L, Hgb 9.4 L, Hct 29.8 L, MCV 91.4, MCH 28.8, MCHC 31.5 L, RDW Std Deviation 53.1 H, RDW Coeff of Anil 16.5 H, Plt Count 227, MPV 11.3, Immature Gran % (Auto) 0.200, Neut % (Auto) 55.2, Lymph % (Auto) 20.0, [place] % (Auto) 16.2 H, Eos % (Auto) 7.6 H, Baso % (Auto) 0.8, Absolute Neuts (auto) 2.6, Absolute Lymphs (auto) 0.95, Nucleated RBC % 0, Sodium 142, Potassium 4.6, Chloride 114 H, Carbon Dioxide 23.0, Anion Gap 5, BUN 15, Creatinine 1.48 H, Estim Creat Clear Calc 61.90, Est GFR (MDRD) Af Amer 63, Est GFR (MDRD) Non-Af 52 L, BUN/Creatinine Ratio 10.1, Glucose 92, Calcium 7.9 L, Total Bilirubin 0.70, Direct Bilirubin 0.25, AST 63 H, ALT 54, Alkaline Phosphatase 130 H, Troponin I High Sens 37, B-Natriuretic Peptide 301.0 H, Total Protein 6.0 L, Albumin 2.4 L, Globulin 3.6, Lipase 64, Blood Type A POSITIVE, Antibody Screen NEGATIVE 01/15/23 15:25: Urine Color Yellow, Urine Clarity Sl Cloudy, Urine pH 7.0, Ur Specific [place] 1.010, Urine Protein 30 H, Urine Glucose (UA) Normal, Urine Ketones Negative, Urine Occult Blood 25 H, Urine Nitrite POSITIVE H, Urine Bilirubin Negative, Urine Urobilinogen Normal, Ur Leukocyte Esterase Negative, Urine RBC 0-5 SEEN, Urine WBC 0-5 SEEN, Ur Squamous Epith Cells 0 SEEN, Urine Bacteria 1+, Urine Mucus 0 SEEN 01/15/23 16:54: Troponin I High Sens 31 Radiology Impression Chest X-Ray 01/15/23 14:24 IMPRESSION: Cardiomegaly. Mild degree of vascular congestion. Electronically Signed: Manolo Julian MD at 15:10 EDT , Assessment & Plan Assessment/Plan (1) Abdominal pain: PLAN: Plan #Abdominal pain radiating to chest -Patient reports upper abdominal pain that radiates up to his chest -Patient poor historian and no family available at bedside for further history at time of exam it appears that this is gotten worse which prompted his ED visit -Difficult time describing the pain but reports it is in a [place] from about mid abdomen up -With hx of possible blood in stool previously (>than 1 week ago) could certainly have upper GI pathology, presently hemoglobin stable no overt blood in stool patient unsure when he last had bowel movement, continue to hold eliquis -Abdominal pain could also be from constipation -We will start on IV PPI, patient received GI cocktail in ED -Additionally a KUB to assess bowel gas pattern and burden though no nausea or vomiting and do not think patient has obstruction -If no other etiology found and symptoms persist can consider GI evaluation or CT abdomen -Continue lactulose, senna docusate -Do not think pain is cardiac in nature, troponin within normal limits, does not appear to be profoundly overloaded to the point this would cause pain especially given on further review it appears this is more abdominal than cardiac in nature -Lipase within normal limits #Chronic anemia -Baseline hemoglobin widely variable and anywhere from 8-12's -Was 10.5 on 01/01 and was 9.9 on 01/14, today 9.4 -It was mentioned in ED note that he is not taking his Eliquis because of possible blood in his stool but has not had that in over a week -We will need to investigate this further -We will order FOBT however and Protonix and trend hemoglobin #Lower extremity swelling -Chronic -ULISES wraps -Had BNP of 300 with no previous baseline, no respiratory distress or other signs or symptoms of overload and no complaints of shortness of breath, monitor I's and O's and daily weights and can consider diuresis if needed, will hold off on any fluids at this time -Had echocardiogram 12/28/2022 with EF 60% and no diastolic dysfunction #CKD stage IIIb -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 -Baseline serum creatinine is running between 1.3 and 1.5 -Current serum creatinine 1.48 -Continue home tacrolimus, CellCept -Monitor renal function closely #afib -On most recent admission -Eliquis appears to been held for ?blood in stool -Cont beta-mino and calcium channel mino, will hold off on resumption of Eliquis until further evaluation done #Pts reported pain with talking -No lesions seen in mouth, could be the patient is having GERD is causing reflux and laryngeal irritation -Patient also has history of similar symptoms that have appeared to be behavioral in nature however we will continue to monitor closely and continue PPI -Speech therapy consulted to follow #History of hyperammonemia -Suspected related to decreased clearance with CKD as well as protein calorie malnutrition -Continue lactulose and rifaximin -Mental status is currently at baseline #History of atonic bladder -Self caths regularly -Will place order for straight cath -UA reviewed, patient denies any urinary symptoms or lower abdominal complaints, UA with 1+ bacteria and nitrate but no white blood cells or leuk esterase so do not think he has clinical infection, will continue monitor clinically with low threshold for further evaluation #Hypertension -Continue metoprolol and calcium channel mino #Depression -Continue Remeron #MRDD -Lives in an [place] at baseline -Brother and sister are healthcare power of real estate attorney DVT prophylaxis -Hep sub q given hgb stable and no overt/active bleeding appreciated Time spent in the patient's overall evaluation,decision-making process, review of diagnostic data, adjustment of management, discussion with other providers, nursing nursing and ancillary staff involved in patient's care documentation, 76 minutes Charges/Coding Visit Charges Inpatient E&M: 99385 Init Hosp L3
--- NOTE | 2023-01-15 18:29 | EDS_ITS ---
HPI History of Present Illness Chief Complaint: Chest Pain Narrative Narrative: 57-year-old female presenting with sister out of concern for weakness. Patient was unable to get up and ambulate and refused to self cath himself. Is also complaining some chest pain and epigastric pain. Patient's sister states that he has not had any blood in his stool for over a week. They have been holding his blood thinners. No fevers or chills. No cough or shortness of breath. PFSH PFSH Medical History Anemia in chronic illness Bladder dysfunction Bronchitis Chronic kidney disease, stage 3b CKD (chronic kidney disease), stage III Congenital nystagmus DVT (deep venous thrombosis) History of DVT (deep vein thrombosis) History of encephalopathy History of pulmonary embolism HTN (hypertension) Immunosuppressed status Mild intellectual disability Neurogenic bladder disorder Neutropenia Pancytopenia Pulmonary embolism Severe protein-calorie malnutrition Urinary retention Vocal cord dysfunction Home Medications mycophenolate mofetil 500 mg tablet 500 mg PO BID TRANSPLANT ANTI-REJECTION 07/14/16 [History Last Taken 01/15/23] multivitamin 1 tab PO DAILY SUPPLEMENT 02/13/22 [History Last Taken 01/15/23] lactulose 20 gram/30 mL oral solution 30 ml PO TID CONSTIPATION 06/13/22 [History Last Taken 01/15/23] rifaximin 550 mg tablet (Xifaxan) 550 mg PO BID ANTIBIOTIC 07/16/22 [History Last Taken 01/15/23] sodium bicarbonate 650 mg tablet 1,300 mg PO TID HEARTBURN/INDIGESTION 07/16/22 [History Last Taken 01/15/23] bisacodyl 10 mg rectal suppository 10 mg DC DAILY PRN CONSTIPATION 11/01/22 [History Last Taken Unknown] bismuth subsalicylate 262 mg/15 mL oral suspension (Pepto-Bismol) 524 mg PO Q30M PRN UPSET STOMACH 11/01/22 [History Last Taken Unknown] magnesium hydroxide 400 mg/5 mL oral suspension (Dulcolax (magnesium hydroxide)) 30 ml PO Q24H PRN CONSTIPATION 11/01/22 [History Last Taken Unknown] mineral oil (Fleet Mineral Oil enema) 118 ml DC DAILY PRN CONSTIPATION 11/01/22 [History Last Taken Unknown] mirtazapine 30 mg tablet 30 mg PO QHS DEPRESSION 11/01/22 [History Last Taken 01/14/23] atorvastatin 40 mg tablet 40 mg PO QHS CHOLESTEROL #30 tabs 01/01/23 [Rx Last Taken 01/14/23] diltiazem HCl 120 mg tablet,extended release 24 hr (Cardizem LA) 120 mg PO DAILY BLOOD PRESSURE #30 tabs 01/01/23 [Rx Last Taken 01/15/23] metoprolol tartrate 25 mg tablet 25 mg PO BID BLOOD PRESSURE #0 tabs 01/01/23 [Rx Last Taken 01/15/23] acetaminophen 325 mg tablet (Tylenol) 650 mg PO Q6H PRN PAIN 1-10 OR FEVER >100.7 01/15/23 [History Last Taken Unknown] tacrolimus 0.5 mg capsule, immediate-release 0.5 mg PO BID TRANSPLANT ANTI- REJECTION 01/15/23 [History Last Taken 01/15/23] Allergy/AdvReac Type Severity Reaction Status Date / Time red dye Allergy PT UNSURE Verified 01/07/23 09:36 OF REACTION Family History Mother Hypertension Father Diabetes Surgical History Kidney transplant recipient Renal transplant recipient S/P arteriovenous (AV) fistula creation Social History household members: none housing: senior care Smoking Status: Never smoker second hand exposure: No alcohol intake: never substance use type: does not use caffeine: No ROS ROS ED Constitutional Constitutional ED: Denies chills or fever(s) Eyes Eyes: Denies blurry vision or change in vision ENT ENT ED: Denies rhinorrhea or sore throat Cardiovascular Cardiovascular: Reports as per HPI Respiratory/Chest Respiratory/Chest: Denies cough or dyspnea Gastrointestinal Gastrointestinal: Denies abdominal pain Musculoskeletal Musculoskeletal: Denies arthralgias or back pain Integumentary Denies Abrasions Neurologic Neurologic: Denies headache(s) EXAM Physical Exam Const Vital Signs: 01/15/23 13:48 01/15/23 13:53 01/15/23 15:04 Temperature 98.2 F Temperature Source Oral Pulse Rate 91 90 Respiratory Rate 19 H 18 Respiratory Effort Normal Non-Labored Blood Pressure 134/90 H 133/87 H Blood Pressure Mean 104 102 Pulse Ox 97 98 Oxygen Delivery Method Room Air Room Air 01/15/23 17:00 Temperature Temperature Source Pulse Rate 87 Respiratory Rate 16 Respiratory Effort Blood Pressure 158/96 H Blood Pressure Mean 116 Pulse Ox 98 Oxygen Delivery Method Room Air Positive well nourished General Appearance ED: NAD HEENT Reports moist mucous membranes normocephalic and atraumatic Eyes PERRL and EOMs intact bilaterally Chest Wall inspection of chest normal Resp normal respiratory effort and clear to auscultation bilaterally Auscultation: Negative for rales, rhonchi or wheezes Cardio regular rate and regular rhythm GI normal to inspection, nondistended, normoactive bowel sounds Neuro oriented x3 and CN's II-XII intact bilaterally Sensorium / Orientation: awake and alert Motor Exam: strength 5/5 throughout Psych mental status grossly normal MDM MDM MDM Narrative Medical decision making narrative: Patient presenting with chest pain and weakness. Patient has history of UTI as well and refused self cath. Differential includes acute coronary syndrome, pneumonia, GI bleed, electrolyte abnormalities, dehydration, UTI. CBC was obtained to assess white blood cell count, hemoglobin, platelets. CMP to assess liver function, renal function, electrolytes. High-sensitivity troponin EKG to assess for ischemia and dysrhythmia. Chest x-ray to rule out pneumonia. Patient medicated with Protonix out of concern for possible upper GI bleed. Is also treated with GI cocktail. G on my interpretation shows a normal sinus rhythm with a ventricular to 90 bpm without sign of ischemic change. Chest x- ray my interpretation shows no acute process. Work-up fairly unremarkable. His BNP was slightly elevated at 301. Troponin 37 and 31. No significant change. Urinalysis consistent with UTI. Patient has a UTI that is most antibiotics. He needs vancomycin, linezolid, mycin. For this reason I will have him admitted. Impression: 1. Chest pain 2. Epigastric pain 3. UTI Lab Data Labs: Laboratory Results - last 24 hr 01/15/23 01/15/23 01/15/23 14:30 15:25 16:54 WBC 4.8 RBC 3.26 L Hgb 9.4 L Hct 29.8 L MCV 91.4 MCH 28.8 MCHC 31.5 L RDW Std Deviation 53.1 H RDW Coeff of Anil 16.5 H Plt Count 227 MPV 11.3 Immature Gran % (Auto) 0.200 Neut % (Auto) 55.2 Lymph % (Auto) 20.0 [place] % (Auto) 16.2 H Eos % (Auto) 7.6 H Baso % (Auto) 0.8 Absolute Neuts (auto) 2.6 Absolute Lymphs (auto) 0.95 Nucleated RBC % 0 Sodium 142 Potassium 4.6 Chloride 114 H Carbon Dioxide 23.0 Anion Gap 5 BUN 15 Creatinine 1.48 H Estim Creat Clear Calc 61.90 Est GFR (MDRD) Af Amer 63 Est GFR (MDRD) Non-Af 52 L BUN/Creatinine Ratio 10.1 Glucose 92 Calcium 7.9 L Total Bilirubin 0.70 Direct Bilirubin 0.25 AST 63 H ALT 54 Alkaline Phosphatase 130 H Troponin I High Sens 37 31 B-Natriuretic Peptide 301.0 H Total Protein 6.0 L Albumin 2.4 L Globulin 3.6 Lipase 64 Urine Color Yellow Urine Clarity Sl Cloudy Urine pH 7.0 Ur Specific [place] 1.010 Urine Protein 30 H Urine Glucose (UA) Normal Urine Ketones Negative Urine Occult Blood 25 H Urine Nitrite POSITIVE H Urine Bilirubin Negative Urine Urobilinogen Normal Ur Leukocyte Esterase Negative Urine RBC 0-5 SEEN Urine WBC 0-5 SEEN Ur Squamous Epith Cells 0 SEEN Urine Bacteria 1+ Urine Mucus 0 SEEN Blood Type A POSITIVE Antibody Screen NEGATIVE Radiography Diagnostic Testing: Clinical Impression(s) from Imaging Studies Chest X-Ray 01/15/23 14:24 IMPRESSION: Cardiomegaly. Mild degree of vascular congestion. Electronically Signed: Manolo Julian MD at 15:10 EDT , Discharge Plan Disposition Disposition: Acute Care Hospital [facility] Discharge Date/Time: 01/15/23 17:55
[2023-01-15] MEDS: Mycophenolate Mofetil 250 MG Capsule 500 MG PO (21:00)
[2023-01-15] MEDS: Tacrolimus 0.5 MG Capsule PO (21:00)
--- NOTE | 2023-01-15 21:39 | RAD_ITS ---
STUDY: X-RAY - ABDOMEN/PELVIS REASON FOR EXAM: Male, 57 years old. abd pain, pt unsure when last BM TECHNIQUE: Single AP view of the abdomen / pelvis. COMPARISON: None. FINDINGS: Normal visualized lung bases. There is an unremarkable bowel gas pattern. The visualized liver, spleen and kidneys are grossly normal in size and morphology. Normal soft tissue structures. Normal visualized osseous structures. RAD/Abdomen Single View (Portable) IMPRESSION: Nonspecific bowel gas pattern. Electronically Signed: Sulaiman Donovan MD at 22:15 EDT ,
[2023-01-15] MEDS: Metoprolol Tartrate 25 MG Tablet PO (22:59)
[2023-01-15] MEDS: Atorvastatin Calcium 40 MG Tablet PO (22:59)
[2023-01-15] MEDS: Senna/Docusate Sodium 1 Tablet 2 TABLET PO (23:00)
[2023-01-15] MEDS: Lactulose 20 GM/30 ML UDC PO (23:00)
[2023-01-15] MEDS: Mirtazapine 30 MG Tablet PO (23:00)
[2023-01-15] MEDS: rifAXIMin 550 MG Tablet PO (23:00)
[2023-01-15] MEDS: Heparin Injection (Vial) 5,000 UNIT/ML VIAL 5000 UNIT SC (23:00)
[2023-01-16 02:27] VITALS: BP 117/75; PULSE 77; RESP 18; TEMP 37; O2SAT 97
[2023-01-16] MEDS: Lactulose 20 GM/30 ML UDC PO ×3 (06:08→21:01)
[2023-01-16] MEDS: Heparin Injection (Vial) 5,000 UNIT/ML VIAL 5000 UNIT SC ×3 (06:08→21:01)
[2023-01-16 06:55] LABS: Absolute Lymphocyte Count 0.78 X10^3/uL (0.83-4.51); Absolute Neutrophil Count 2.7 X10^3/uL (2.0-7.7); Basophil# 0.05 X10^3/uL; Basophil% 1.1 % (0-1); Eosinophils% 8.8 % (0-5); Hematocrit 26.7 % (40-54); Hemoglobin 8.3 g/dL (13.0-16.5); Lymphocyte # 0.78 X10^3/ul (0.83-4.51); Lymphocyte % 17.1 % (19-41); Mean Corp Hgb Conc 31.1 g/dL (32-36); Mean Corpuscular Volume 90.2 fL (80-94); Mean Platelet Vol. 9.6 fl (6.2-12.0); Monocyte% 13.1 % (0-10); NRBC Flagged by Analyzer 0 % (0-5); Neutrophil # 2.72 X10^3/uL (2.7-7.7); Neutrophil % 59.5 % (47-70); Platelet Count 186 K/mm3 (150-450); RBC Distribution Width CV 16.3 % (11.6-14.6); RBC Distribution Width SD 53.1 fl (35.1-43.9); Red Blood Count 2.96 M/mm3 (4.6-6.2); White Blood Count 4.6 K/mm3 (4.4-11.0)
[2023-01-16 07:22] LABS: ALB/GLOB Ratio 0.7 RATIO (0.9-2.4); AST(SGOT) 53 U/L (15-37); Alanine Aminotransfer ALT/SGPT 43 U/L (16-61); Albumin, Serum 2.1 g/dL (3.2-5.0); Alkaline Phosphatase 110 U/L (45-117); Anion Gap 5 (5-15); BUN 14 mg/dL (7-18); BUN/Creat Ratio 9.6 RATIO (10-20); Calcium,Total 7.4 mg/dL (8.5-10.1); Chloride 117 mmol/L (98-107); Creatinine, Serum 1.46 mg/dL (0.70-1.30); EST Glomerular Filtration Rate 53 mL/min (>60); Est Glom Filt Rate - Afr Amer 64 mL/min (>60); Estimated Creatinine Clearance 62.75 ml/min; Globulin 3.1 g/dL (2.2-4.2); Glucose 95 mg/dL (74-106); Potassium 4.4 mmol/L (3.5-5.1); Protein, Total 5.2 g/dL (6.4-8.2); Sodium Level 143 mmol/L (136-145)
--- NOTE | 2023-01-16 07:29 | PN.HOSP_ITS ---
Reason for Visit Reason for Visit: Diagnoses Unspecified abdominal pain (01/15/23) Subjective Subjective Denies any current abdominal pain. States his abdominal pain waxes and wanes. Objective Data Objective Data Vital Signs: Vital Signs Temp Pulse Resp BP Pulse Ox O2 Del Method 37.0 C 77 18 117/75 97 Room Air 01/16/23 02:27 01/16/23 02:27 01/16/23 02:27 01/16/23 02:27 01/16/23 02:01/16/23 02:27 Oxygen Delivery Method Room Air Weight: 90.9 kg Body Mass Index (BMI) 27.1 Intake & Output: Intake and Output for Last 24 Hours 01/14/23 01/15/23 01/16/23 23:59 23:59 23:59 Intake Total 35 / 35 700 / 700 Output Total 1800 / 1800 Balance 35 / 35 -1100 / -1100 Lab / Micro Data 01/16/23 06:40 01/16/23 06:40 Labs: Laboratory Results - last 24 hr 01/15/23 14:30: WBC 4.8, RBC 3.26 L, Hgb 9.4 L, Hct 29.8 L, MCV 91.4, MCH 28.8, MCHC 31.5 L, RDW Std Deviation 53.1 H, RDW Coeff of Anil 16.5 H, Plt Count 227, MPV 11.3, Immature Gran % (Auto) 0.200, Neut % (Auto) 55.2, Lymph % (Auto) 20.0, Leake % (Auto) 16.2 H, Eos % (Auto) 7.6 H, Baso % (Auto) 0.8, Absolute Neuts (auto) 2.6, Absolute Lymphs (auto) 0.95, Nucleated RBC % 0, Sodium 142, Potassium 4.6, Chloride 114 H, Carbon Dioxide 23.0, Anion Gap 5, BUN 15, Creatinine 1.48 H, Estim Creat Clear Calc 61.90, Est GFR (MDRD) Af Amer 63, Est GFR (MDRD) Non-Af 52 L, BUN/Creatinine Ratio 10.1, Glucose 92, Calcium 7.9 L, Total Bilirubin 0.70, Direct Bilirubin 0.25, AST 63 H, ALT 54, Alkaline Phosphatase 130 H, Troponin I High Sens 37, B-Natriuretic Peptide 301.0 H, Total Protein 6.0 L, Albumin 2.4 L, Globulin 3.6, Lipase 64, Blood Type A POSITIVE, Antibody Screen NEGATIVE 01/15/23 15:25: Urine Color Yellow, Urine Clarity Sl Cloudy, Urine pH 7.0, Ur Specific [place] 1.010, Urine Protein 30 H, Urine Glucose (UA) Normal, Urine Ketones Negative, Urine Occult Blood 25 H, Urine Nitrite POSITIVE H, Urine Bilirubin Negative, Urine Urobilinogen Normal, Ur Leukocyte Esterase Negative, Urine RBC 0-5 SEEN, Urine WBC 0-5 SEEN, Ur Squamous Epith Cells 0 SEEN, Urine Bacteria 1+, Urine Mucus 0 SEEN 01/15/23 16:54: Troponin I High Sens 31 01/16/23 06:40: WBC 4.6, RBC 2.96 L, Hgb 8.3 L, Hct 26.7 L, MCV 90.2, MCH 28.0, MCHC 31.1 L, RDW Std Deviation 53.1 H, RDW Coeff of Anil 16.3 H, Plt Count 186, MPV 9.6, Immature Gran % (Auto) 0.400, Neut % (Auto) 59.5, Lymph % (Auto) 17.1 L , Leake % (Auto) 13.1 H, Eos % (Auto) 8.8 H, Baso % (Auto) 1.1 H, Absolute Neuts (auto) 2.7, Absolute Lymphs (auto) 0.78 L, Nucleated RBC % 0, Sodium 143, Potass ium 4.4, Chloride 117 H, Carbon Dioxide 21.0, Anion Gap 5, BUN 14, Creatinine 1.46 H, Estim Creat Clear Calc 62.75, Est GFR (MDRD) Af Amer 64, Est GFR (MDRD) Non-Af 53 L, BUN/Creatinine Ratio 9.6 L, Glucose 95, Calcium 7.4 L, Total Bilirubin 1.20 H, AST 53 H, ALT 43, Alkaline Phosphatase 110, Total Protein 5.2 L, Albumin 2.1 L, Globulin 3.1, Albumin/Globulin Ratio 0.7 L Radiography Diagnostic Testing: Radiology Impression Chest X-Ray 01/15/23 14:24 IMPRESSION: Cardiomegaly. Mild degree of vascular congestion. Electronically Signed: Manolo Julian MD at 15:10 EDT , KUB X-Ray 01/15/23 21:39 IMPRESSION: Nonspecific bowel gas pattern. Electronically Signed: Sulaiman Donovan MD at 22:15 EDT , Physical Exam Const alert and no apparent distress Resp normal respiratory effort and no retractions Cardio regular rate, regular rhythm, S1 normal heart sound and S2 normal heart sound GI normal to inspection, nondistended, normoactive bowel sounds, soft to palpation and non-tender Assessment & Plan Assessment/Plan (1) Abdominal pain: PLAN: Unclear etiology Abd xray was non-specific. Tolerating diet. PLAN: Plan Chronic conditions: * Anemia: Has trended down, but counts have been variable overtime. 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-Baseline serum creatinine is running between 1.3 and 1.5-Current serum creatinine 1.48-Continue home tacrolimus, CellCept-Monitor renal function closely * afib-On most recent admission-Eliquis appears to been held for ?blood in sto ol-Cont beta-mino and calcium channel mino, will hold off on resumption of Eliquis until further evaluation done * History of hyperammonemia-Suspected related to decreased clearance with CKD as well as protein calorie malnutrition-Continue lactulose and rifaximin-Mental status is currently at baseline * History of atonic bladder-Self caths regularly-Will place order for straight cath-UA reviewed, patient denies any urinary symptoms or lower abdominal complaints, UA with 1+ bacteria and nitrate but no white blood cells or leuk esterase so do not think he has clinical infection, will continue monitor clinically with low threshold for further evaluation * Hypertension-Continue metoprolol and calcium channel mino * Depression-Continue Remeron * MRDD-Lives in an AL at baseline-Brother and sister are healthcare power of accounting clerk * CAD: recent NSTEMI. Recent cath showed non-obstructive CAD. DVT prophylaxis: SQ heparin Disposition: to be determined. Check hemoglobin and remained stable and patient is otherwise doing well could likely patient returning to assisted living. Charges/Coding Visit Charges Inpatient E&M: 61042 Subs Hosp L2
[2023-01-16 08:30] VITALS: BP 122/80; PULSE 78; RESP 16; TEMP 37.2; O2SAT 98
[2023-01-16 10:27] VITALS: PULSE 77
[2023-01-16] MEDS: Senna/Docusate Sodium 1 Tablet 2 TABLET PO ×2 (10:27→21:02)
[2023-01-16] MEDS: Metoprolol Tartrate 25 MG Tablet PO ×2 (10:27→21:03)
[2023-01-16] MEDS: rifAXIMin 550 MG Tablet PO ×2 (10:28→21:04)
[2023-01-16] MEDS: Pantoprazole Sodium 40 MG in 0.9% Normal Saline (100mL MB+) 100 ML 330 MG IV (10:30)
[2023-01-16] MEDS: Tacrolimus 0.5 MG Capsule PO ×2 (10:30→21:02)
[2023-01-16] MEDS: Mycophenolate Mofetil 250 MG Capsule 500 MG PO ×2 (10:30→21:02)
[2023-01-16] MEDS: dilTIAZem CD 120 MG Capsule PO (10:31)
--- NOTE | 2023-01-16 11:57 | CASEMGMT ---
TC to pt GRAYSON Stallings, explained [employer] form, she requested this RN BLARI call her brother Alejo as he does the paperwork items for pt. TC to Alejo at [phone]. RN BLAIR explained [employer] form, Alejo voiced understanding. Alejo gave verbal consent for signature of form, witnessed by second person Olga Workman and filed in chart. Pt provided with a copy of signed [employer] form. Alejo had no further questions or concerns at this time.
[2023-01-16 13:20] LABS: Hematocrit 30.3 % (40-54); Hemoglobin 9.5 g/dL (13.0-16.5)
--- NOTE | 2023-01-16 14:06 | DS.PCM_ITS ---
Providers Date of Admission: 01/15/23 Primary Care Physician: Dr. Mike Bella MD Reason For Visit: ABD PAIN, GENERALIZED WEAKNESS Diagnosis Discharge Diagnosis (1) Abdominal pain: Status: Acute Code(s): R10.9 - Unspecified abdominal pain Plan: Unclear etiology Abd xray was non-specific. Tolerating diet. Patient had reported to having blood in the stool about a week ago but no evidence of that here. Patient's hemoglobin is currently stable. Plan is to discharge back to the critical access hospital. Plan Chronic conditions: * Anemia: Has trended down, but counts have been variable overtime. 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-Baseline serum creatinine is running between 1.3 and 1.5-Current serum creatinine 1.48-Continue home tacrolimus, CellCept-Monitor renal function closely * afib-On most recent admission-Eliquis appears to been held for ?blood in stool-Cont beta-mino and calcium channel mino, will hold off on resumpt ion of Eliquis until further evaluation done * History of hyperammonemia-Suspected related to decreased clearance with CKD as well as protein calorie malnutrition-Continue lactulose and rifaximin-Mental status is currently at baseline * History of atonic bladder-Self caths regularly-Will place order for straight cath-UA reviewed, patient denies any urinary symptoms or lower abdominal complaints, UA with 1+ bacteria and nitrate but no white blood cells or leuk esterase so do not think he has clinical infection, will continue monitor clinically with low threshold for further evaluation * Hypertension-Continue metoprolol and calcium channel mino * Depression-Continue Remeron * MRDD-Lives in an AL at baseline-Brother and sister are healthcare power of deputy commonwealth's attorney * CAD: recent NSTEMI. Recent cath showed non-obstructive CAD. DVT prophylaxis: SQ heparin Disposition: Back to the critical access hospital Medications at Discharge Home Medications mycophenolate mofetil 500 mg tablet 500 mg PO BID TRANSPLANT ANTI-REJECTION 07/14/16 multivitamin 1 tab PO DAILY SUPPLEMENT 02/13/22 lactulose 20 gram/30 mL oral solution 30 ml PO TID CONSTIPATION 06/13/22 rifaximin 550 mg tablet (Xifaxan) 550 mg PO BID ANTIBIOTIC 07/16/22 sodium bicarbonate 650 mg tablet 1,300 mg PO TID HEARTBURN/INDIGESTION 07/16/22 bisacodyl 10 mg rectal suppository 10 mg MS DAILY PRN CONSTIPATION 11/01/22 bismuth subsalicylate 262 mg/15 mL oral suspension (Pepto-Bismol) 524 mg PO Q30M PRN UPSET STOMACH 11/01/22 magnesium hydroxide 400 mg/5 mL oral suspension (Dulcolax (magnesium hydroxide)) 30 ml PO Q24H PRN CONSTIPATION 11/01/22 mineral oil (Fleet Mineral Oil enema) 118 ml MS DAILY PRN CONSTIPATION 11/01/22 mirtazapine 30 mg tablet 30 mg PO QHS DEPRESSION 11/01/22 atorvastatin 40 mg tablet 40 mg PO QHS CHOLESTEROL #30 tabs 01/01/23 diltiazem HCl 120 mg tablet,extended release 24 hr (Cardizem LA) 120 mg PO DAILY BLOOD PRESSURE #30 tabs 01/01/23 metoprolol tartrate 25 mg tablet 25 mg PO BID BLOOD PRESSURE #0 tabs 01/01/23 acetaminophen 325 mg tablet (Tylenol) 650 mg PO Q6H PRN PAIN 1-10 OR FEVER >100.7 01/15/23 tacrolimus 0.5 mg capsule, immediate-release 0.5 mg PO BID TRANSPLANT ANTI- REJECTION 01/15/23 pantoprazole 40 mg tablet,delayed release (Protonix) 40 mg PO DAILY #30 tabs 01/16/23 Hospital Course Operations None Procedures None Summary of Care Provided Minutes Spent on Discharge: 32 Hospital Course: Patient presents with intermittent abdominal pain. Patient had reported having some blood in the stool about a week ago but presently no evidence of that here. His hemoglobin has remained stable here. Patient has been eating and doing well. Plan is for the patient to go back to the critical access hospital in stable condition. I did update the patient's sister about his case. She is requesting that they arrange for transportation back over to the critical access hospital. Patient was also seen by therapy and walked 150 feet with contact guard assistance. Patient can try pantoprazole to see if that helps. Is unclear if patient is having difficulty localizing his symptoms and whether or not this is some type of reflux or gastritis. Weight / BMI Weight Weight: 90.9 kg Body Mass Index (BMI) 27.1 ABG / Lab / Microbiology Data 01/16/23 13:13 01/16/23 06:40 Laboratory: Laboratory Results - last 24 hr 01/15/23 14:30: WBC 4.8, RBC 3.26 L, Hgb 9.4 L, Hct 29.8 L, MCV 91.4, MCH 28.8, MCHC 31.5 L, RDW Std Deviation 53.1 H, RDW Coeff of Anil 16.5 H, Plt Count 227, MPV 11.3, Immature Gran % (Auto) 0.200, Neut % (Auto) 55.2, Lymph % (Auto) 20.0, [place] % (Auto) 16.2 H, Eos % (Auto) 7.6 H, Baso % (Auto) 0.8, Absolute Neuts (auto) 2.6, Absolute Lymphs (auto) 0.95, Nucleated RBC % 0, Sodium 142, Potassium 4.6, Chloride 114 H, Carbon Dioxide 23.0, Anion Gap 5, BUN 15, Creatinine 1.48 H, Estim Creat Clear Calc 61.90, Est GFR (MDRD) Af Amer 63, Est GFR (MDRD) Non-Af 52 L, BUN/Creatinine Ratio 10.1, Glucose 92, Calcium 7.9 L, Total Bilirubin 0.70, Direct Bilirubin 0.25, AST 63 H, ALT 54, Alkaline Phosphatase 130 H, Troponin I High Sens 37, B-Natriuretic Peptide 301.0 H, Total Protein 6.0 L, Albumin 2.4 L, Globulin 3.6, Lipase 64, Blood Type A POSITIVE, Antibody Screen NEGATIVE 01/15/23 15:25: Urine Color Yellow, Urine Clarity Sl Cloudy, Urine pH 7.0, Ur Specific [place] 1.010, Urine Protein 30 H, Urine Glucose (UA) Normal, Urine Ketones Negative, Urine Occult Blood 25 H, Urine Nitrite POSITIVE H, Urine Bilirubin Negative, Urine Urobilinogen Normal, Ur Leukocyte Esterase Negative, Urine RBC 0-5 SEEN, Urine WBC 0-5 SEEN, Ur Squamous Epith Cells 0 SEEN, Urine Bacteria 1+, Urine Mucus 0 SEEN 01/15/23 16:54: Troponin I High Sens 31 01/16/23 06:40: WBC 4.6, RBC 2.96 L, Hgb 8.3 L, Hct 26.7 L, MCV 90.2, MCH 28.0, MCHC 31.1 L, RDW Std Deviation 53.1 H, RDW Coeff of Anil 16.3 H, Plt Count 186, MPV 9.6, Immature Gran % (Auto) 0.400, Neut % (Auto) 59.5, Lymph % (Auto) 17.1 L , [place] % (Auto) 13.1 H, Eos % (Auto) 8.8 H, Baso % (Auto) 1.1 H, Absolute Neuts (auto) 2.7, Absolute Lymphs (auto) 0.78 L, Nucleated RBC % 0, Sodium 143, Potassium 4.4, Chloride 117 H, Carbon Dioxide 21.0, Anion Gap 5, BUN 14, Creatinine 1.46 H, Estim Creat Clear Calc 62.75, Est GFR (MDRD) Af Amer 64, Est GFR (MDRD) Non-Af 53 L, BUN/Creatinine Ratio 9.6 L, Glucose 95, Calcium 7.4 L, Total Bilirubin 1.20 H, AST 53 H, ALT 43, Alkaline Phosphatase 110, Total Protein 5.2 L, Albumin 2.1 L, Globulin 3.1, Albumin/Globulin Ratio 0.7 L 01/16/23 13:13: Hgb 9.5 L, Hct 30.3 L Radiography Diagnostic Testing: Radiology Impression Chest X-Ray 01/15/23 14:24 IMPRESSION: Cardiomegaly. Mild degree of vascular congestion. Electronically Signed: Manolo Julian MD at 15:10 EDT , KUB X-Ray 01/15/23 21:39 IMPRESSION: Nonspecific bowel gas pattern. Electronically Signed: Sulaiman Donovan MD at 22:15 EDT , D/C Instructions Discharge Diet: Low fat / Low cholesterol Call your doctor if you observe: - (Worsening abdominal pain. Blood in the stool. Dark tarry stools.) Meaningful Use Info Meaningful Use Diagnoses (Choose all that apply): None applicable Discharge Plan Admission Admit Date/Time: 01/15/23 18:22 Primary Reason for Your Visit: Abdominal pain. Attending Provider: Ambrosio Solis Primary Care Provider: Mike Bella Consulting Providers: Linda Mercer Instructions Additional Instructions / Restrictions: You presented with abdominal pain. Your work-up here was unremarkable. Apparently you had some blood in your stool about a week ago but your hemoglobin has been stable. If you have any new issues notify physician or return to the emergency room. Discharge Orders/Prescriptions Prescriptions: New pantoprazole [Protonix] 40 mg tablet,delayed release (DR/EC) 40 mg PO DAILY Qty: 30 0RF Continued mycophenolate mofetil 500 MG tablet 500 mg PO BID multivitamin Tablet 1 tab PO DAILY lactulose 20 gram/30 mL solution 30 ml PO TID sodium bicarbonate 650 mg tablet 1,300 mg PO TID Xifaxan 550 mg tablet 550 mg PO BID tacrolimus 0.5 mg capsule 0.5 mg PO BID acetaminophen [Tylenol] 325 mg Tablet 650 mg PO Q6H PRN (Reason: PAIN 1-10 OR FEVER >100.7) mirtazapine 30 mg tablet 30 mg PO QHS bismuth subsalicylate [Pepto-Bismol] 262 mg/15 mL suspension 524 mg PO Q30M PRN (Reason: UPSET STOMACH) bisacodyl 10 mg suppository 10 mg MS DAILY PRN (Reason: CONSTIPATION ) mineral oil [Fleet Mineral Oil] Enema 118 ml MS DAILY PRN (Reason: CONSTIPATION ) magnesium hydroxide [Dulcolax (magnesium hydroxide)] 400 mg/5 mL suspension 30 ml PO Q24H PRN (Reason: CONSTIPATION ) atorvastatin 40 mg tablet 40 mg PO QHS Qty: 30 0RF diltiazem HCl [Cardizem LA] 120 mg tablet extended release 24 hr 120 mg PO DAILY Qty: 30 0RF metoprolol tartrate 25 mg Tablet 25 mg PO BID Qty: 0 0RF Referrals / Follow Up: Mike Bella MD [Primary Care Provider] - Within 2 Weeks Disposition Disposition (needs filled in before D/C Order can be placed): NonSkilled NH/Intermed Care Charges/Coding Visit Charges Inpatient E&M: 64426 Disch Hosp >30min
[2023-01-16 14:30] VITALS: BP 110/72; PULSE 83; RESP 18; TEMP 37.1; O2SAT 95
--- NOTE | 2023-01-16 16:23 | CASEMGMT ---
Social Work SW informed patient to be discharged. Pt is from [facility]. Patient was residing in assisted living, moved to skilled earlier this month and was moved back to assisted living prior to this hospitalization. STUART confirmed with PT which had recommended additional therapy, reports he will needs transfer and walking assistance. STUART spoke with [facility] who reports patient needs to be more independent for their AL as there is no assistance after 8pm, no STNAs and he will not have assistance walking. [facility] reports he is appropriate for skilled. STUART spoke with patient's sister and brother who also agree he needs more assistance than available in AL. [facility] is submitting precert. Plan: Pt to return to [facility] as skilled, pending precert. Kaylee Sneed SAMPLE EXAMINER, BRATTICE BUILDER
[2023-01-16 20:46] VITALS: BP 119/75; PULSE 79; RESP 18; TEMP 36.7; O2SAT 97
[2023-01-16 21:03] VITALS: BP 119/75; PULSE 79
[2023-01-16] MEDS: Atorvastatin Calcium 40 MG Tablet PO (21:03)
[2023-01-16] MEDS: Mirtazapine 30 MG Tablet PO (21:03)
[2023-01-17 03:04] VITALS: BP 122/79; PULSE 78; RESP 16; TEMP 36.7; O2SAT 96
[2023-01-17 05:41] VITALS: BMI 26.9
[2023-01-17] MEDS: Heparin Injection (Vial) 5,000 UNIT/ML VIAL 5000 UNIT SC ×3 (06:25→21:05)
[2023-01-17] MEDS: Lactulose 20 GM/30 ML UDC PO ×3 (06:25→21:06)
--- NOTE | 2023-01-17 07:28 | PN.HOSP_ITS ---
Reason for Visit Reason for Visit: Diagnoses Unspecified abdominal pain (01/15/23) Subjective Subjective Patient could not be discharged yesterday as he would require a precertification for return. Still with abdominal pain. Objective Data Objective Data Vital Signs: Vital Signs Temp Pulse Resp BP Pulse Ox O2 Del Method 36.7 C 78 16 122/79 H 96 Room Air 01/17/23 03:04 01/17/23 03:04 01/17/23 03:04 01/17/23 03:04 01/17/23 03:04 01/17/23 03:27 Oxygen Delivery Method Room Air Weight: 90.1 kg Body Mass Index (BMI) 26.9 Intake & Output: Intake and Output for Last 24 Hours 01/15/23 01/16/23 01/17/23 23:59 23:59 23:59 Intake Total 35 / 35 1410 / 1410 700 / 700 Output Total 3750 / 3750 1700 / 1700 Balance 35 / 35 -2340 / -2340 -1000 / -1000 Lab / Micro Data 01/16/23 13:13 01/16/23 06:40 Labs: Laboratory Results - last 24 hr 01/16/23 13:13: Hgb 9.5 L, Hct 30.3 L Physical Exam Const Constitutional Narrative: up in chair. ready to eat breakfast. HEENT head/scalp atraumatic and moist oral mucous membranes Resp normal respiratory effort, no retractions, no use of accessory muscles and clear to auscultation bilaterally Cardio regular rate, regular rhythm, S1 normal heart sound and S2 normal heart sound GI normal to inspection, nondistended, normoactive bowel sounds, soft to palpation and non-tender Assessment & Plan Assessment/Plan (1) Abdominal pain: QUALIFIERS: Abdominal location: unspecified location Qualified Code(s): R10.9 - Unspecified abdominal pain PLAN: Unclear etiology Abd xray was non-specific. Tolerating diet. Patient had reported to having blood in the stool about a week ago but no evidence of that here. Patient's hemoglobin is currently stable. Has been stable. No additional testing indicated at this time. PLAN: Plan Chronic conditions: * Anemia: Has trended down, but counts have been variable overtime. 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-Baseline serum creatinine is running between 1.3 and 1.5-Current serum creatinine 1.48-Continue home tacrolimus, CellCept-Monitor renal function closely * afib-On most recent admission-Eliquis appears to been held for ?blood in stool-Cont beta-mino and calcium channel mino, will hold off on resumption of Eliquis until further evaluation done * History of hyperammonemia-Suspected related to decreased clearance with CKD as well as protein calorie malnutrition-Continue lactulose and rifaximin-Mental status is currently at baseline * History of atonic bladder-Self caths regularly-Will place order for straight cath-UA reviewed, patient denies any urinary symptoms or lower abdominal complaints, UA with 1+ bacteria and nitrate but no white blood cells or leuk esterase so do not think he has clinical infection, will continue monitor clinically with low threshold for further evaluation * Hypertension-Continue metoprolol and calcium channel mino * Depression-Continue Remeron * MRDD-Lives in an AL at baseline-Brother and sister are healthcare power of director of acquisitions * CAD: recent NSTEMI. Recent cath showed non-obstructive CAD. DVT prophylaxis: SQ heparin [facility]. Charges/Coding Visit Charges Inpatient E&M: 18495 Subs Hosp L2
[2023-01-17 09:00] VITALS: BP 125/77; PULSE 75; RESP 16; TEMP 36.6; O2SAT 94
[2023-01-17 09:04] VITALS: PULSE 75
[2023-01-17] MEDS: Senna/Docusate Sodium 1 Tablet 2 TABLET PO (09:04)
[2023-01-17] MEDS: Metoprolol Tartrate 25 MG Tablet PO ×2 (09:04→21:07)
[2023-01-17] MEDS: rifAXIMin 550 MG Tablet PO ×2 (09:04→21:08)
[2023-01-17] MEDS: Pantoprazole Sodium 40 MG in 0.9% Normal Saline (100mL MB+) 100 ML 330 MG IV (09:04)
[2023-01-17] MEDS: Mycophenolate Mofetil 250 MG Capsule 500 MG PO ×2 (09:05→21:06)
[2023-01-17] MEDS: dilTIAZem CD 120 MG Capsule PO (09:06)
[2023-01-17] MEDS: Tacrolimus 0.5 MG Capsule PO ×2 (09:06→21:06)
[2023-01-17 15:00] VITALS: BP 129/70; PULSE 80; RESP 16; TEMP 36.5; O2SAT 95
[2023-01-17 20:22] VITALS: BP 118/73; PULSE 80; RESP 18; TEMP 36.7; O2SAT 97
[2023-01-17] MEDS: 0.9% Saline Lock 10 ML Syringe IV (20:24)
[2023-01-17] MEDS: Ondansetron 4 MG/2 ML Vial IV (20:24)
[2023-01-17] MEDS: Menthol/Lanolin/Calamine/Znox 113 GM Tube 1 APPLIC TOPICAL (21:05)
[2023-01-17 21:07] VITALS: BP 118/73; PULSE 80
[2023-01-17] MEDS: Atorvastatin Calcium 40 MG Tablet PO (21:07)
[2023-01-17] MEDS: Mirtazapine 30 MG Tablet PO (21:08)
[2023-01-18 03:13] VITALS: BP 99/52; PULSE 71; RESP 16; TEMP 36.9; O2SAT 93
[2023-01-18] MEDS: Heparin Injection (Vial) 5,000 UNIT/ML VIAL 5000 UNIT SC ×3 (06:10→21:31)
--- NOTE | 2023-01-18 08:42 | PN.HOSP_ITS ---
Reason for Visit Reason for Visit: Diagnoses Unspecified abdominal pain (01/15/23) Subjective Subjective Patient is a 57-year-old gentleman admitted with abdominal pain work-up so far unremarkable plan is for patient to be discharged back to [facility] Objective Data Objective Data Vital Signs: Vital Signs Temp Pulse Resp BP Pulse Ox O2 Del Method 98.4 F 71 16 99/52 L 93 Room Air 01/18/23 03:13 01/18/23 03:13 01/18/23 03:13 01/18/23 03:13 01/18/23 03:13 01/18/23 03:35 Oxygen Delivery Method Room Air Weight: 90.1 kg Body Mass Index (BMI) 26.9 Intake & Output: Intake and Output for Last 24 Hours 01/16/23 01/17/23 01/18/23 23:59 23:59 23:59 Intake Total 1410 / 1410 1510 / 1510 700 / 700 Output Total 3750 / 3750 3650 / 3650 1300 / 1300 Balance -2340 / -2340 -2140 / -2140 -600 / -600 Lab / Micro Data 01/16/23 13:13 01/16/23 06:40 Micro: Microbiology 01/17/23 11:00 Stool Stool Occult Blood ([facility]) - Final Physical Exam Narrative GENERAL: cooperative HEENT: Atraumatic; normocephalic EYES; Anicteric, Normal Conjunctiva NECK; supple, normal thyroid, RESPIRATORY: Diminished to auscultation CARDIOVASCULAR: Regular S1 S2, GI: soft, normoactive bowel sounds, : No Renal angle tenderness; EXTREMITIES: No edema, no clubbing, MUSCULOSKELETAL: no muscle wasting NEURO: Awake; no lateralizing signs. SKIN: No Rash PSYCH; Flat affect Assessment & Plan Assessment/Plan (1) Abdominal pain: QUALIFIERS: Abdominal location: unspecified location Qualified Code(s): R10.9 - Unspecified abdominal pain PLAN: Plan Patient is a 57-year-old gentleman admitted with abdominal pain work-up so far unremarkable plan is for patient to be discharged back to [facility] 1. Abdominal pain ? Treated symptomatically work-up so far unremarkable 2. Anemia - Secondary to chronic disorder monitoring H&H and transfuse if patient becomes symptomatic or hemoglobin falls below 7 3. Bilateral lower extremity swelling ? Billy wrap as needed 4. Previous history of kidney transplant ? Patient is on tacrolimus as well as CellCept continue 5. Chronic kidney disease stage IIIb ? Kidney function at baseline 6. Recent diagnosis of A-fib ? Patient is on calcium channel blockers as well as beta-blockers. Patient was on Eliquis held as a result of suspected lower GI bleed 7. Moderate MRDD ? Supportive care 8. Hypertension - Blood pressure controlled, home medications continued with dose adjustment as needed 9. Depression ? Patient is on Remeron 10. DVT prophylaxis ? SC heparin Time spent in the patient's overall evaluation,decision-making process, review of diagnostic data, adjustment of management, discussion with other providers, nursing nursing and ancillary staff involved in patient's care documentation, 35 Minutes Charges/Coding Visit Charges Inpatient E&M: 65537 Subs Hosp L2
[2023-01-18 08:48] VITALS: BP 124/85; PULSE 83; RESP 18; TEMP 37.1; O2SAT 99
[2023-01-18] MEDS: Tacrolimus 0.5 MG Capsule PO ×2 (08:53→21:31)
[2023-01-18] MEDS: dilTIAZem CD 120 MG Capsule PO (08:53)
[2023-01-18] MEDS: Mycophenolate Mofetil 250 MG Capsule 500 MG PO ×2 (08:53→21:31)
[2023-01-18 08:54] VITALS: PULSE 83
[2023-01-18] MEDS: rifAXIMin 550 MG Tablet PO ×2 (08:54→21:29)
[2023-01-18] MEDS: Metoprolol Tartrate 25 MG Tablet PO ×2 (08:54→21:29)
[2023-01-18] MEDS: Menthol/Lanolin/Calamine/Znox 113 GM Tube 1 APPLIC TOPICAL ×2 (08:56→21:28)
[2023-01-18] MEDS: Pantoprazole Sodium 40 MG Tablet PO (09:05)
--- NOTE | 2023-01-18 10:47 | CASEMGMT ---
Social Work Power of Elementary School Counselor for Healthcare scanned into [employer]!, Denny Pinzon is listed as healthcare POA. MARTHA Seymour
[2023-01-18 15:08] VITALS: BP 118/65; PULSE 82; RESP 18; TEMP 37.1; O2SAT 98
--- NOTE | 2023-01-18 16:12 | CHAPLAIN ---
Type of Pastoral Visit _x__ Initial Visit ___ Follow-up Visit ___ On-call Visit ___ General Patient Visit ___ Spiritual Assessment ___ Family Conference ___ Bereavement ___ Rapid Response ___ Code Blue ___ Other (describe below) Pastoral Care Referral From _x__ Patient ___ Family ___ Nurse ___ Physician ___ Senior Property Manager ___ Asbestos Siding Installer ___ Other (describe below) Sacrament/Intervention _x__ Active listening ___ Anointing ___ Mormon ___ Bereavement ___ Communion ___ Alma exploration ___ ___ Life review _x__ Prayer ___ Reconciliation ___ Sacrament of Sick _x__ Supportive presence ___ Wedding ___ Other (describe below) Pastoral Comments sat with this patient for a time; pt has been seen numerous times in previous admissions; pt does not answer many of the questions asked by this garage mechanic but rather asks his own questions of the garage mechanic; this type of conversation continues with patient directing the topics and flow of conversation; pt is able to speak about his wants for his care; pt says that he is communicating with his family, in particular his mother who is at [facility]; prayer is welcomed
[2023-01-18 20:19] VITALS: BP 112/65; PULSE 81; RESP 18; TEMP 36.8; O2SAT 96
[2023-01-18] MEDS: Lactulose 20 GM/30 ML UDC PO (21:28)
[2023-01-18] MEDS: 0.9% Saline Lock 10 ML Syringe IV (21:28)
[2023-01-18 21:29] VITALS: BP 112/65; PULSE 81
[2023-01-18] MEDS: Atorvastatin Calcium 40 MG Tablet PO (21:29)
[2023-01-18] MEDS: Senna/Docusate Sodium 1 Tablet 2 TABLET PO (21:30)
[2023-01-18] MEDS: Mirtazapine 30 MG Tablet PO (21:30)
[2023-01-19 03:50] VITALS: BP 100/64; PULSE 71; RESP 20; TEMP 36.6; O2SAT 97
[2023-01-19 06:00] VITALS: BMI 26.1
[2023-01-19] MEDS: Heparin Injection (Vial) 5,000 UNIT/ML VIAL 5000 UNIT SC (06:23)
[2023-01-19] MEDS: Lactulose 20 GM/30 ML UDC PO (06:23)
--- NOTE | 2023-01-19 07:15 | PCM.PN.HOSP ---
Reason for Visit Reason for Visit: Diagnoses Unspecified abdominal pain (01/15/23) Subjective Subjective Chest seen had a relatively uneventful night plan is for patient to be assessed for possible discharge Objective Data Objective Data Vital Signs: Vital Signs Temp Pulse Resp BP Pulse Ox O2 Del Method 97.9 F 71 20 H 100/64 97 Room Air 01/19/23 03:50 01/19/23 03:50 01/19/23 03:50 01/19/23 03:50 01/19/23 03:50 01/19/23 03:50 Oxygen Delivery Method Room Air Weight: 87.4 kg Body Mass Index (BMI) 26.1 Intake & Output: Intake and Output for Last 24 Hours 01/17/23 01/18/23 01/19/23 23:59 23:59 23:59 Intake Total 1510 / 1510 1180 / 1180 Output Total 3650 / 3650 2225 / 2225 500 / 500 Balance -2140 / -2140 -1045 / -1045 -500 / -500 Lab / Micro Data 01/16/23 13:13 01/16/23 06:40 Micro: Microbiology 01/17/23 11:00 Stool Stool Occult Blood (NYA) - Final Physical Exam Narrative GENERAL: cooperative HEENT: Atraumatic; normocephalic EYES; Anicteric, Normal Conjunctiva NECK; supple, normal thyroid, RESPIRATORY: Diminished to auscultation CARDIOVASCULAR: Regular S1 S2, GI: soft, normoactive bowel sounds, : No Renal angle tenderness; EXTREMITIES: No edema, no clubbing, MUSCULOSKELETAL: no muscle wasting NEURO: Awake; no lateralizing signs. SKIN: No Rash PSYCH; Flat affect Assessment & Plan Assessment/Plan (1) Abdominal pain: QUALIFIERS: Abdominal location: unspecified location Qualified Code(s): R10.9 - Unspecified abdominal pain PLAN: Plan Patient is a 57-year-old gentleman admitted with abdominal pain work-up so far unremarkable plan is for patient to be discharged back to [facility] 1. Abdominal pain ? Treated symptomatically work-up so far unremarkable 2. Anemia - Secondary to chronic disorder monitoring H&H and transfuse if patient becomes symptomatic or hemoglobin falls below 7 3. Bilateral lower extremity swelling ? Billy wrap as needed 4. Previous history of kidney transplant ? Patient is on tacrolimus as well as CellCept continue 5. Chronic kidney disease stage IIIb ? Kidney function at baseline 6. Recent diagnosis of A-fib ? Patient is on calcium channel blockers as well as beta-blockers. Patient was on Eliquis held as a result of suspected lower GI bleed 7. Moderate MRDD ? Supportive care 8. Hypertension - Blood pressure controlled, home medications continued with dose adjustment as needed 9. Depression ? Patient is on Remeron 10. DVT prophylaxis ? SC heparin Time spent in the patient's overall evaluation,decision-making process, review of diagnostic data, adjustment of management, discussion with other providers, nursing nursing and ancillary staff involved in patient's care documentation, 35 Minutes Charges/Coding Visit Charges Inpatient E&M: 69976 Subs Hosp L2
[2023-01-19 08:57] VITALS: BP 126/83; PULSE 77; RESP 16; TEMP 36.7; O2SAT 98
--- NOTE | 2023-01-19 09:16 | PCM.DC.SUM ---
Providers Date of Admission: 01/15/23 Date of Discharge: 01/19/23 Primary Care Physician: Dr. Mike Bella MD Reason For Visit: ABD PAIN, GENERALIZED WEAKNESS Diagnosis Discharge Diagnosis (1) Abdominal pain: Status: Acute Code(s): R10.9 - Unspecified abdominal pain Qualifiers: Abdominal location: unspecified location Qualified Code(s): R10.9 - Unspecified abdominal pain Plan Patient is a 57-year-old gentleman admitted with abdominal pain work-up so far unremarkable plan is for patient to be discharged back to [facility] 1. Abdominal pain ? Treated symptomatically work-up so far unremarkable 2. Anemia - Secondary to chronic disorder monitoring H&H and transfuse if patient becomes symptomatic or hemoglobin falls below 7 3. Bilateral lower extremity swelling ? Billy wrap as needed 4. Previous history of kidney transplant ? Patient is on tacrolimus as well as CellCept continue 5. Chronic kidney disease stage IIIb ? Kidney function at baseline 6. Recent diagnosis of A-fib ? Patient is on calcium channel blockers as well as beta-blockers. Patient was on Eliquis held as a result of suspected lower GI bleed 7. Moderate MRDD ? Supportive care 8. Hypertension - Blood pressure controlled, home medications continued with dose adjustment as needed 9. Depression ? Patient is on Remeron 10. DVT prophylaxis ? SC heparin Time spent in the patient's overall evaluation,decision-making process, review of diagnostic data, adjustment of management, discussion with other providers, nursing nursing and ancillary staff involved in patient's care documentation, 35 Minutes Medications at Discharge Home Medications mycophenolate mofetil 500 mg tablet 500 mg PO BID TRANSPLANT ANTI-REJECTION 07/14/16 multivitamin 1 tab PO DAILY SUPPLEMENT 02/13/22 lactulose 20 gram/30 mL oral solution 30 ml PO TID CONSTIPATION 06/13/22 rifaximin 550 mg tablet (Xifaxan) 550 mg PO BID ANTIBIOTIC 07/16/22 sodium bicarbonate 650 mg tablet 1,300 mg PO TID HEARTBURN/INDIGESTION 07/16/22 bisacodyl 10 mg rectal suppository 10 mg MO DAILY PRN CONSTIPATION 11/01/22 bismuth subsalicylate 262 mg/15 mL oral suspension (Pepto-Bismol) 524 mg PO Q30M PRN UPSET STOMACH 11/01/22 magnesium hydroxide 400 mg/5 mL oral suspension (Dulcolax (magnesium hydroxide)) 30 ml PO Q24H PRN CONSTIPATION 11/01/22 mineral oil (Fleet Mineral Oil enema) 118 ml MO DAILY PRN CONSTIPATION 11/01/22 mirtazapine 30 mg tablet 30 mg PO QHS DEPRESSION 11/01/22 atorvastatin 40 mg tablet 40 mg PO QHS CHOLESTEROL #30 tabs 01/01/23 diltiazem HCl 120 mg tablet,extended release 24 hr (Cardizem LA) 120 mg PO DAILY BLOOD PRESSURE #30 tabs 01/01/23 metoprolol tartrate 25 mg tablet 25 mg PO BID BLOOD PRESSURE #0 tabs 01/01/23 acetaminophen 325 mg tablet (Tylenol) 650 mg PO Q6H PRN PAIN 1-10 OR FEVER >100.7 01/15/23 tacrolimus 0.5 mg capsule, immediate-release 0.5 mg PO BID TRANSPLANT ANTI-REJECTION 01/15/23 pantoprazole 40 mg tablet,delayed release (Protonix) 40 mg PO DAILY #30 tabs 01/16/23 Hospital Course Summary of Care Provided Minutes Spent on Discharge: 35 Physical Exam Narrative GENERAL: cooperative HEENT: Atraumatic; normocephalic EYES; Anicteric, Normal Conjunctiva NECK; supple, normal thyroid, RESPIRATORY: Diminished to auscultation CARDIOVASCULAR: Regular S1 S2, GI: soft, normoactive bowel sounds, : No Renal angle tenderness; EXTREMITIES: No edema, no clubbing, MUSCULOSKELETAL: no muscle wasting NEURO: Awake; no lateralizing signs. SKIN: No Rash PSYCH; Flat affect Weight / BMI Weight Weight: 87.4 kg Body Mass Index (BMI) 26.1 ABG / Lab / Microbiology Data 01/16/23 13:13 01/16/23 06:40 Microbiology: Microbiology 01/17/23 11:00 Stool Stool Occult Blood (NYA) - Final D/C Instructions Discharge Diet: No restrictions Discharge Activity: Return to Normal Activity Call your doctor if you observe: - (Worsening abdominal pain. Blood in the stool. Dark tarry stools.) Meaningful Use Info Meaningful Use Diagnoses (Choose all that apply): None applicable Discharge Plan Admission Admit Date/Time: 01/15/23 18:22 Primary Reason for Your Visit: Abdominal pain. Attending Provider: Rayo Cartagena Primary Care Provider: Mike Bella Consulting Providers: Linda Mercer; Ambrosio Solis Instructions Additional Instructions / Restrictions: You presented with abdominal pain. Your work-up here was unremarkable. Apparently you had some blood in your stool about a week ago but your hemoglobin has been stable. If you have any new issues notify physician or return to the emergency room. Discharge Orders/Prescriptions Prescriptions: New pantoprazole [Protonix] 40 mg tablet,delayed release (DR/EC) 40 mg PO DAILY Qty: 30 0RF Continued mycophenolate mofetil 500 MG tablet 500 mg PO BID multivitamin Tablet 1 tab PO DAILY lactulose 20 gram/30 mL solution 30 ml PO TID sodium bicarbonate 650 mg tablet 1,300 mg PO TID Xifaxan 550 mg tablet 550 mg PO BID tacrolimus 0.5 mg capsule 0.5 mg PO BID acetaminophen [Tylenol] 325 mg Tablet 650 mg PO Q6H PRN (Reason: PAIN 1-10 OR FEVER >100.7) mirtazapine 30 mg tablet 30 mg PO QHS bismuth subsalicylate [Pepto-Bismol] 262 mg/15 mL suspension 524 mg PO Q30M PRN (Reason: UPSET STOMACH) bisacodyl 10 mg suppository 10 mg MO DAILY PRN (Reason: CONSTIPATION ) mineral oil [Fleet Mineral Oil] Enema 118 ml MO DAILY PRN (Reason: CONSTIPATION ) magnesium hydroxide [Dulcolax (magnesium hydroxide)] 400 mg/5 mL suspension 30 ml PO Q24H PRN (Reason: CONSTIPATION ) atorvastatin 40 mg tablet 40 mg PO QHS Qty: 30 0RF diltiazem HCl [Cardizem LA] 120 mg tablet extended release 24 hr 120 mg PO DAILY Qty: 30 0RF metoprolol tartrate 25 mg Tablet 25 mg PO BID Qty: 0 0RF Referrals / Follow Up: Mike Bella MD [Primary Care Provider] - Within 2 Weeks Disposition Disposition (needs filled in before D/C Order can be placed): Assisted Facility Charges/Coding Visit Charges Inpatient E&M: 28948 Disch Hosp >30min
[2023-01-19] MEDS: rifAXIMin 550 MG Tablet PO (09:37)
[2023-01-19] MEDS: dilTIAZem CD 120 MG Capsule PO (09:37)
--- NOTE | 2023-01-19 09:37 | TREXTCAR_ITS ---
Diet Diet Order/Speech Therapy: 01/15/23 18:55 Diet: Regular - General Food consistency:: Regular Liquid Consistency:: Regular/Thin Routine Orders/Code Status Code Status: Full Code Therapies Physical Therapy: Eval and Treat Occupational Therapy: Eval and Treat Problem/Diagnosis (1) Abdominal pain: Status: Acute Code(s): R10.9 - Unspecified abdominal pain Plan Patient is a 57-year-old gentleman admitted with abdominal pain work-up so far unremarkable plan is for patient to be discharged back to [facility] 1. Abdominal pain ? Treated symptomatically work-up so far unremarkable 2. Anemia - Secondary to chronic disorder monitoring H&H and transfuse if patient becomes symptomatic or hemoglobin falls below 7 3. Bilateral lower extremity swelling ? Billy wrap as needed 4. Previous history of kidney transplant ? Patient is on tacrolimus as well as CellCept continue 5. Chronic kidney disease stage IIIb ? Kidney function at baseline 6. Recent diagnosis of A-fib ? Patient is on calcium channel blockers as well as beta-blockers. Patient was on Eliquis held as a result of suspected lower GI bleed 7. Moderate MRDD ? Supportive care 8. Hypertension - Blood pressure controlled, home medications continued with dose adjustment as needed 9. Depression ? Patient is on Remeron 10. DVT prophylaxis ? SC heparin Time spent in the patient's overall evaluation,decision-making process, review of diagnostic data, adjustment of management, discussion with other providers, nursing nursing and ancillary staff involved in patient's care documentation, 35 Minutes Allergies/Procedures Done in Hospital Allergies red dye Allergy (Verified 01/07/23 09:36) PT UNSURE OF REACTION Type of Care/Length of Stay Estimated LOS: Convalescent Care Less Than 30 days Type of Care Needed: Skilled Rehab Potential: Good Prognosis: Good Additional Orders/Day of Discharge Day of Discharge: 01/19/23 Discharge Plan Admission Admit Date/Time: 01/15/23 18:22 Primary Reason for Your Visit: Abdominal pain. Attending Provider: Rayo Cartagena Primary Care Provider: Mike Bella Consulting Providers: Linda Mercer; Ambrosio Solis Instructions Additional Instructions / Restrictions: You presented with abdominal pain. Your work-up here was unremarkable. Apparently you had some blood in your stool about a week ago but your hemoglobin has been stable. If you have any new issues notify physician or return to the emergency room. Discharge Orders/Prescriptions Prescriptions: New pantoprazole [Protonix] 40 mg tablet,delayed release (DR/EC) 40 mg PO DAILY Qty: 30 0RF Continued mycophenolate mofetil 500 MG tablet 500 mg PO BID multivitamin Tablet 1 tab PO DAILY lactulose 20 gram/30 mL solution 30 ml PO TID sodium bicarbonate 650 mg tablet 1,300 mg PO TID Xifaxan 550 mg tablet 550 mg PO BID tacrolimus 0.5 mg capsule 0.5 mg PO BID acetaminophen [Tylenol] 325 mg Tablet 650 mg PO Q6H PRN (Reason: PAIN 1-10 OR FEVER >100.7) mirtazapine 30 mg tablet 30 mg PO QHS bismuth subsalicylate [Pepto-Bismol] 262 mg/15 mL suspension 524 mg PO Q30M PRN (Reason: UPSET STOMACH) bisacodyl 10 mg suppository 10 mg IN DAILY PRN (Reason: CONSTIPATION ) mineral oil [Fleet Mineral Oil] Enema 118 ml IN DAILY PRN (Reason: CONSTIPATION ) magnesium hydroxide [Dulcolax (magnesium hydroxide)] 400 mg/5 mL suspension 30 ml PO Q24H PRN (Reason: CONSTIPATION ) atorvastatin 40 mg tablet 40 mg PO QHS Qty: 30 0RF diltiazem HCl [Cardizem LA] 120 mg tablet extended release 24 hr 120 mg PO DAILY Qty: 30 0RF metoprolol tartrate 25 mg Tablet 25 mg PO BID Qty: 0 0RF Referrals / Follow Up: Mike Bella MD [Primary Care Provider] - Within 2 Weeks Disposition Disposition (needs filled in before D/C Order can be placed): Custodial Facility (1) Abdominal pain Qualifiers: Abdominal location: unspecified location Qualified Code(s): R10.9 - Unspecified abdominal pain
[2023-01-19] MEDS: Senna/Docusate Sodium 1 Tablet 2 TABLET PO (09:38)
[2023-01-19] MEDS: Tacrolimus 0.5 MG Capsule PO (09:38)
[2023-01-19] MEDS: Pantoprazole Sodium 40 MG Tablet PO (09:38)
[2023-01-19] MEDS: Mycophenolate Mofetil 250 MG Capsule 500 MG PO (09:38)
[2023-01-19 09:39] VITALS: PULSE 77
[2023-01-19] MEDS: Menthol/Lanolin/Calamine/Znox 113 GM Tube 1 APPLIC TOPICAL (09:39)
[2023-01-19] MEDS: Metoprolol Tartrate 25 MG Tablet PO (09:39)
--- NOTE | 2023-01-19 09:54 | CASEMGMT ---
Discharge Planning Discharge orders, signed med list and transport time sent to [facility]. [facility] will tranport patient by wheelchair at 10:30a. Nursing, SW, patient, and his sister updated. Joanna Lee, Discharge Planning Asst.
--- NOTE | 2023-01-19 10:14 | PHA.DC.MR.R ---
Pharmacy [place] Med Reconciliation Pharmacy Service has performed discharge medication reconciliation for this patient upon transfer to [facility] The patient's discharge medication list was reviewed for discrepancies and discrepancies were resolved. Medications at Discharge Home Medications mycophenolate mofetil 500 mg tablet 500 mg PO BID TRANSPLANT ANTI-REJECTION 07/14/16 multivitamin 1 tab PO DAILY SUPPLEMENT 02/13/22 lactulose 20 gram/30 mL oral solution 30 ml PO TID CONSTIPATION 06/13/22 rifaximin 550 mg tablet (Xifaxan) 550 mg PO BID ANTIBIOTIC 07/16/22 sodium bicarbonate 650 mg tablet 1,300 mg PO TID HEARTBURN/INDIGESTION 07/16/22 bisacodyl 10 mg rectal suppository 10 mg HI DAILY PRN CONSTIPATION 11/01/22 bismuth subsalicylate 262 mg/15 mL oral suspension (Pepto-Bismol) 524 mg PO Q30M PRN UPSET STOMACH 11/01/22 magnesium hydroxide 400 mg/5 mL oral suspension (Dulcolax (magnesium hydroxide)) 30 ml PO Q24H PRN CONSTIPATION 11/01/22 mineral oil (Fleet Mineral Oil enema) 118 ml HI DAILY PRN CONSTIPATION 11/01/22 mirtazapine 30 mg tablet 30 mg PO QHS DEPRESSION 11/01/22 atorvastatin 40 mg tablet 40 mg PO QHS CHOLESTEROL #30 tabs 01/01/23 diltiazem HCl 120 mg tablet,extended release 24 hr (Cardizem LA) 120 mg PO DAILY BLOOD PRESSURE #30 tabs 01/01/23 metoprolol tartrate 25 mg tablet 25 mg PO BID BLOOD PRESSURE #0 tabs 01/01/23 acetaminophen 325 mg tablet (Tylenol) 650 mg PO Q6H PRN PAIN 1-10 OR FEVER >100.7 01/15/23 tacrolimus 0.5 mg capsule, immediate-release 0.5 mg PO BID TRANSPLANT ANTI-REJECTION 01/15/23 pantoprazole 40 mg tablet,delayed release (Protonix) 40 mg PO DAILY #30 tabs 01/16/23 cefdinir 300 mg capsule 300 mg PO BID #14 caps 01/19/23
== END 2023-01-19 11:10 | disposition skilled nursing facility (03) ==
LOC: ED 14:44 → MS3 18:54
PROVIDERS: Admitting Provider Internal Medicine; Emergency Provider Student in an Organized Health Care Education/Training Program; PCP Family Medicine; Visit Provider Internal Medicine
DX: R10.13 Epigastric pain (principal); I48.91 Unspecified atrial fibrillation; N18.32 Chronic kidney disease, stage 3b; N39.0 Urinary tract infection, site not specified; R53.1 Weakness; R07.9 Chest pain, unspecified; I12.9 Hypertensive chronic kidney disease with stage 1 through stage 4 chronic kidney disease, or unspecified chronic kidney disease; Z94.0 Kidney transplant status; D63.8 Anemia in other chronic diseases classified elsewhere; Z86.711 Personal history of pulmonary embolism; Z86.718 Personal history of other venous thrombosis and embolism; Z79.899 Other long term (current) drug therapy; Z79.01 Long term (current) use of anticoagulants; R60.0 Localized edema; N31.2 Flaccid neuropathic bladder, not elsewhere classified; F71 Moderate intellectual disabilities; I25.10 Atherosclerotic heart disease of native coronary artery without angina pectoris; I25.2 Old myocardial infarction; F32.A Depression, unspecified; M79.89 Other specified soft tissue disorders
CPT/HCPCS: 36415; 71045; 74018; 80048; 80053; 80069; 80076; 80197; 81001; 82274; 82306; 82570; 83690; 83880; 83970; 84156; 84484; 85014; 85018; 85025; 85027; 86850; 86900; 86901; 87077; 87086; 87088; 87186; 92526; 92610; 93005; 96365; 96366; 96372; 96375; 97162; 97165; 97530; 97535; 99221; 99285; P9612; A4216; G0378; J2405; J3490

== ENCOUNTER 2023-01-26 16:48 | Inpatient (IN) | payer MEDICARE, MEDICAID, SELFPAY ==
[2023-01-26] VITALS (37 sets, daily range): BP systolic 107–144; BP diastolic 64–80; PULSE 80–107; RESP 15–25; TEMP 36.8–38.6; O2SAT 89–100; BMI 26.6; BMI 26.9
--- NOTE | 2023-01-26 17:02 | EX.ED.DYSGE1 ---
HPI History of Present Illness Chief Complaint: Fever PFSH PFSH Medical History Anemia in chronic illness Bladder dysfunction Bronchitis Chronic kidney disease, stage 3b CKD (chronic kidney disease), stage III Congenital nystagmus DVT (deep venous thrombosis) History of DVT (deep vein thrombosis) History of encephalopathy History of pulmonary embolism HTN (hypertension) Immunosuppressed status Mild intellectual disability Myocardial infarct Neurogenic bladder disorder Neutropenia Pancytopenia Pulmonary embolism Severe protein-calorie malnutrition Urinary retention Vocal cord dysfunction Home Medications mycophenolate mofetil 500 mg tablet 500 mg PO BID TRANSPLANT ANTI-REJECTION 07/14/16 [History Last Taken 01/26/23] multivitamin 1 tab PO DAILY SUPPLEMENT 02/13/22 [History Last Taken 01/26/23] lactulose 20 gram/30 mL oral solution 30 ml PO TID CONSTIPATION 06/13/22 [History Last Taken 01/26/23] rifaximin 550 mg tablet (Xifaxan) 550 mg PO BID ANTIBIOTIC 07/16/22 [History Last Taken 01/26/23] sodium bicarbonate 650 mg tablet 1,300 mg PO TID HEARTBURN/INDIGESTION 07/16/22 [History Last Taken 01/26/23] magnesium hydroxide 400 mg/5 mL oral suspension (Dulcolax (magnesium hydroxide)) 30 ml PO Q24H PRN CONSTIPATION 11/01/22 [History Last Taken Unknown] mineral oil (Fleet Mineral Oil enema) 118 ml SC DAILY PRN CONSTIPATION 11/01/22 [History Last Taken Unknown] mirtazapine 30 mg tablet 30 mg PO QHS DEPRESSION 11/01/22 [History Last Taken 01/25/23] diltiazem HCl 120 mg tablet,extended release 24 hr (Cardizem LA) 120 mg PO DAILY BLOOD PRESSURE #30 tabs 01/01/23 [Rx Last Taken 01/26/23] metoprolol tartrate 25 mg tablet 25 mg PO BID BLOOD PRESSURE #0 tabs 01/01/23 [Rx Last Taken 01/26/23] tacrolimus 0.5 mg capsule, immediate-release 0.5 mg PO BID TRANSPLANT ANTI-REJECTION 01/15/23 [History Last Taken 01/26/23] atorvastatin 40 mg tablet 40 mg PO DAILY CHOLESTEROL 01/26/23 [History Last Taken 01/25/23] Allergy/AdvReac Type Severity Reaction Status Date / Time red dye Allergy PT UNSURE Verified 01/26/23 16:51 OF REACTION Family History Mother Hypertension Father Diabetes Surgical History Kidney transplant recipient Renal transplant recipient S/P arteriovenous (AV) fistula creation Social History household members: none housing: halfway Smoking Status: Never smoker second hand exposure: No alcohol intake: never substance use type: does not use caffeine: No EXAM Physical Exam Const Vital Signs: 01/26/23 17:05 01/26/23 16:48 01/26/23 16:48 Temperature 101.4 F H Temperature Source Oral Pulse Rate 100 107 H Respiratory Rate 22 H 22 H Respiratory Effort Short of Breath Respiratory Pattern Tachypnea Blood Pressure 123/70 H 132/74 H Blood Pressure Mean 87 93 Pulse Ox 97 100 Oxygen Delivery Method Room Air Room Air 01/26/23 17:11 01/26/23 18:48 01/26/23 17:51 Temperature 98.2 F Temperature Source Oral Pulse Rate 91 100 Respiratory Rate 18 22 H Respiratory Effort Respiratory Pattern Blood Pressure 119/66 125/70 H Blood Pressure Mean 83 88 Pulse Ox 89 97 Oxygen Delivery Method Room Air Room Air 01/26/23 18:00 01/26/23 19:00 01/26/23 20:00 Temperature 99.3 F H 98.4 F 98.7 F Temperature Source Oral Oral Oral Pulse Rate 91 88 84 Respiratory Rate 18 25 H 19 H Respiratory Effort Respiratory Pattern Blood Pressure 119/66 107/78 123/66 H Blood Pressure Mean 83 87 85 Pulse Ox 98 97 97 Oxygen Delivery Method Room Air Room Air Room Air 01/26/23 19:30 01/26/23 19:37 01/26/23 19:40 Temperature Temperature Source Pulse Rate 88 88 Respiratory Rate 21 H 21 H Respiratory Effort Respiratory Pattern Blood Pressure 107/64 Blood Pressure Mean 76 Pulse Ox 97 98 Oxygen Delivery Method 01/26/23 19:45 01/26/23 19:50 01/26/23 20:00 Temperature Temperature Source Pulse Rate 87 88 88 Respiratory Rate 15 25 H 21 H Respiratory Effort Respiratory Pattern Blood Pressure 107/78 Blood Pressure Mean 86 Pulse Ox 97 97 96 Oxygen Delivery Method 01/26/23 20:10 01/26/23 20:20 01/26/23 20:25 Temperature Temperature Source Pulse Rate 87 86 86 Respiratory Rate 21 H 24 H 24 H Respiratory Effort Respiratory Pattern Blood Pressure 125/68 H 125/68 H Blood Pressure Mean 87 82 Pulse Ox 94 96 95 Oxygen Delivery Method 01/26/23 20:30 01/26/23 20:40 Temperature Temperature Source Pulse Rate 85 84 Respiratory Rate 22 H 19 H Respiratory Effort Respiratory Pattern Blood Pressure 123/66 H Blood Pressure Mean 82 Pulse Ox 94 95 Oxygen Delivery [place] [facility] [place] Medical decision making narrative: HISTORY OF PRESENT ILLNESS: 57-year-old male here with fever history is provided by patient and sister. Notes history of a kidney transplant. He was sent from [facility] office for nausea vomiting chest pain and fever since yesterday. The patient is a poor historian. During the history provided by sister who states he has had upper abdominal pain nausea vomiting complains of chest pain this all started today. He also noted a fever at home. States he was recently around a loved 1 at another halfway who had the sniffles . She denies any urinary symptoms. Status post renal transplant 2016 currently take immunosuppressive medications. REVIEW OF SYSTEMS: Pertinent positives: Nausea vomiting, chest pain and fever Pertinent negatives: Syncope, urinary complaints PHYSICAL EXAM: Nursing triage notes reviewed, Vital signs reviewed Constitutional: please see mdm HENT: MMM Eyes: Pupils equal round and reactive to light, Extraocular muscles intact Neck: No stridor, no JVD, full neck ROM Lungs: Clear to auscultation, No wheezing or rales. No increased work of breathing, no conversational dyspnea, no accessory muscle use, no nasal flaring. No respiratory distress noted Heart: Regular rate and rhythm, No murmurs, No rubs and No gallops, 2+ distal pulses (radial, femoral, posterior tibial) in all extremities Abdomen: Soft, there is no tenderness, rigidity, rebound or guarding, no obvious peritoneal signs, no palpable pulsatile abdominal masses, no auscultated abdominal bruit : No CVAT Extremities: No edema Neuro: No focal neurological deficits, cranial nerves II through XII intact, 5/5 strength in all extremities. Intact sensation to light touch in all extremities, 2+ reflexes bilateral patella tendons. Normal gait. No ataxia. Skin: No rash or lesions noted MEDICAL DECISION MAKING: Chief Complaint: Fever External records reviewed: Seen in the ED in July 2022 for similar symptoms Factors affecting care: History of kidney transplant, on immunosuppressive medications Social determinants of health: assisted resident History obtained from others: The patient's sister Consults: Internal medicine MDM Narrative: Patient was initially tachycardic, febrile and tachypneic. Abdomen soft nontender not peritonitic. Fever tachycardia and signs of severe infection were concerning given the patient's immunocompromise state. I considered the following differential diagnosis: Viral illness, bacterial illness, pneumonia, intra-abdominal infection, UTI I obtained a broad lab and imaging work-up to further elucidate etiology patient complaints ALL IMAGES (IF OBTAINED) HAVE BEEN PERSONALLY REVIEWED AND INTERPRETED BY MYSELF. Chest x-ray was read and reviewed personally myself shows no evidence of obvious pneumonia shows similar findings to prior x-ray on 01/15/2023. Per radiologist read there may be left lower lobe consolidation. EKG with sinus tachycardia, left axis deviation, normal intervals, no STEMI no signs of right heart strain CBC with leukocytosis suggestive of systemic inflammation, noted stable anemia, no thrombocytopenia No obvious coagulopathy on coagulation studies BMP with significant acute kidney injury, No anion gap, no significant electrolyte abnormalities Lactate elevated consistent with endorgan hypoperfusion LFTs grossly elevated Troponin grossly elevated consistent with myocardial ischemia BNP grossly elevated consistent with increased myocyte stretch Right upper quadrant ultrasound shows no evidence of acute cholecystitis CT scan of the chest abdomen pelvis shows no evidence of obvious infection there is report of questionable varices but no obvious ascites, his cardiomegaly and signs of COPD also gallbladder abnormalities which were further evaluated with ultrasound COVID-19 test was negative Urinalysis shows no evidence of urinary inflammation suggestive of UTI The malformation patient's labs images are consistent with severe sepsis of an unknown source. Also concerning patient elevated troponin and BNP. This is very concerning for VTE given hx of DVT however patient had history of kidney transplant and had PRISCILLA on CKD and was concerned that further contrast would exacerbate kidney issues which would then lead to more harm in this context. In addition to this he had no right heart strain on his EKG, he had signs of infection and signs of pneumonia on chest x-ray is better explanations for his chest pain. No other explanation of the patient's elevated troponin may be septic shock and poor endorgan hypoperfusion as evidenced by PRISCILLA on CKD and elevated liver enzymes in the setting of fever and abnormal vital signs. This may be demand ischemia. Patient's EKG was nonischemic which suggest a type II NSTEMI rather than vessel occlusion. The patient was given broad-spectrum antibiotics, 30 cc/kg bolus. Given elevations in liver enzymes I did obtain a right upper quadrant ultrasound showed no evidence of acute cholecystitis. Given report of questionable pneumonia and reported abdominal pain I did obtain a CT scan of the chest abdomen pelvis that showed no evidence of obvious infectious etiology. The source of the patient's infection remains unclear. He will need inpatient mission for further observation, serial cardiac biomarkers, continuing fluids, repeat lactate and ongoing monitoring. Discussed with hospitalist Dr. Brantley. The patient and/or family, caregivers express understanding. The patient and/or family, caregivers agrees with the plan. Shared decision making: I will have a discussion with the patient and or visitors regarding risk/benefits of further testing or admission. They will be made aware of of the risk/benefits inherent in this decision they will be given the opportunity to voice understanding. Total critical care time today provided was at least 60 minutes. This excludes separately billable procedures. Critical care time (if documented) is secondary to the patient having high probability of clinically significant/life threatening deterioration in the patient's condition which required my urgent intervention. Impression: 1. Fever 2. Elevated liver enzymes 3. NSTEMI 4. PRISCILLA on CKD 5. Elevated lactate 6. Septic shock Dispo: Admit Lab Data Labs: Laboratory Results - last 24 hr 01/26/23 01/26/23 01/26/23 17:10 18:59 19:52 WBC 14.4 H RBC 3.71 L Hgb 9.9 L Hct 32.2 L MCV 86.8 MCH 26.7 L MCHC 30.7 L RDW Std Deviation 55.2 H RDW Coeff of Anil 17.5 H Plt Count 205 MPV 10.5 Immature Gran % (Auto) 0.500 Neut % (Auto) 89.9 H Lymph % (Auto) 2.2 L Garza % (Auto) 7.3 Eos % (Auto) 0.0 Baso % (Auto) 0.1 Absolute Neuts (auto) 13.0 H Absolute Lymphs (auto) 0.31 L Nucleated RBC % 0 Differential Comment SCANNED PT 15.8 H INR 1.3 APTT 30.1 Sodium 140 Potassium 4.1 Chloride 113 H Carbon Dioxide 16.0 L Anion Gap 11 BUN 29 H Creatinine 2.36 H Estim Creat Clear Calc 38.82 Est GFR (MDRD) Af Amer 37 L Est GFR (MDRD) Non-Af 31 L BUN/Creatinine Ratio 12.3 Glucose 117 H Lactic Acid 5.1 H* Calcium 8.0 L Total Bilirubin 3.10 H AST 248 H ALT 137 H Alkaline Phosphatase 177 H Total Creatine Kinase 143 Troponin I High Sens 1499 H* 1381 H* B-Natriuretic Peptide 928.8 H Total Protein 6.7 Albumin 2.9 L Globulin 3.8 Albumin/Globulin Ratio 0.8 L Urine Color Yellow Urine Clarity Cloudy Urine pH 5.0 Ur Specific Lead 1.010 Urine Protein 100 H Urine Glucose (UA) Normal Urine Ketones 5 H Urine Occult Blood 50 H Urine Nitrite Negative Urine Bilirubin Negative Urine Urobilinogen Normal Ur Leukocyte Esterase 500 H Urine RBC 0-5 SEEN Urine WBC >100 SEEN Ur Squamous Epith Cells 0 SEEN Urine Bacteria 2+ Urine Mucus 0 SEEN Radiography Diagnostic Testing: Clinical Impression(s) from Imaging Studies Chest X-Ray 01/26/23 17:25 IMPRESSION: Probable atelectasis or infiltrate in the left lung base. Suggest further evaluation with CT scan. Electronically Signed: López Wong MD at 17:47 EDT , Gallbladder Ultrasound 01/26/23 18:29 IMPRESSION: Small gallstones. Gallbladder wall thickening. No biliary dilatation. Electronically Signed: Miah Barrios MD at 20:02 EDT , Chest/Abdomen/Pelvis CT 01/26/23 19:15 IMPRESSION: 1. Limited by motion and the absence of IV and oral contrast. 2. Cardiomegaly. 3. Probable COPD. Mild atelectasis or scarring in the posterior left lung base. 4. Severe bilateral renal atrophy, stable. Grossly stable and unremarkable right lower quadrant transplant kidney. 5. Evaluation of the GI tract limited, cannot exclude segments of bowel wall thickening. 6. Question cirrhosis with extensive varices. 7. Markedly abnormal bladder, suggest cystoscopy. 8. Cholelithiasis. Thickened gallbladder wall with pericholecystic edema. Electronically Signed: López Wong MD at 19:48 EDT , Discharge Plan Triage Chief Complaint: Fever ED Provider: Edinson Freeman Dx/Rx/DC Orders Primary Care Provider: Mike Bella
[2023-01-26 17:23] LABS: Absolute Lymphocyte Count 0.31 X10^3/uL (0.83-4.51); Basophil# 0.02 X10^3/uL; Basophil% 0.1 % (0-1); Hematocrit 32.2 % (40-54); Hemoglobin 9.9 g/dL (13.0-16.5); Lymphocyte # 0.31 X10^3/ul (0.83-4.51); Lymphocyte % 2.2 % (19-41); Mean Corp Hgb Conc 30.7 g/dL (32-36); Mean Corpuscular Hgb 26.7 pg (27.0-32.0); Mean Corpuscular Volume 86.8 fL (80-94); Mean Platelet Vol. 10.5 fl (6.2-12.0); Monocyte# 1.05 X10^3/uL; Monocyte% 7.3 % (0-10); NRBC Flagged by Analyzer 0 % (0-5); Neutrophil # 12.96 X10^3/uL (2.7-7.7); Neutrophil % 89.9 % (47-70); POSITIVE DIFFERENTIAL YES; Platelet Count 205 K/mm3 (150-450); RBC Distribution Width CV 17.5 % (11.6-14.6); RBC Distribution Width SD 55.2 fl (35.1-43.9); Red Blood Count 3.71 M/mm3 (4.6-6.2); White Blood Count 14.4 K/mm3 (4.4-11.0)
--- NOTE | 2023-01-26 17:25 | RAD_ITS ---
STUDY: X-RAY CHEST REASON FOR EXAM: Male, 57 years old. CP TECHNIQUE: Single AP portable view of the chest. COMPARISON: 01/15/2023. FINDINGS: Normal lung volumes. Mildly elevated left hemidiaphragm. Probable atelectasis or infiltrate in the left lung base. Suggest further evaluation with CT scan. No effusions. There is mild to moderate cardiac enlargement. Normal mediastinum and alton. Normal visualized pulmonary arteries. Normal visualized aortic arch and descending thoracic aorta. Normal visualized thoracic spine. Normal visualized ribs, clavicles, and shoulders. There is no demonstrated abnormality of the visualized soft tissue structures of the upper abdomen. RAD/Chest 1 View (Portable) IMPRESSION: Probable atelectasis or infiltrate in the left lung base. Suggest further evaluation with CT scan. Electronically Signed: López Wong MD at 17:47 EDT ,
[2023-01-26 17:32] LABS: Differential Indicated SCAN CRITERIA MET
[2023-01-26] MEDS: Acetaminophen 500 MG Tablet 1000 MG PO (17:40)
[2023-01-26 17:41] LABS: International Normalized Ratio 1.3; Partial Thromboplast Time 30.1 Seconds (24.1-36.2); Prothrombin Time (Protime)PT. 15.8 SECONDS (11.7-14.9)
[2023-01-26] MEDS: 0.9% Normal Saline (500mL Bag) 500 ML 999 ML IV (17:41)
[2023-01-26 17:48] LABS: Differential Comment SCANNED
[2023-01-26 17:58] LABS: ALB/GLOB Ratio 0.8 RATIO (0.9-2.4); AST(SGOT) 248 U/L (15-37); Alanine Aminotransfer ALT/SGPT 137 U/L (16-61); Albumin, Serum 2.9 g/dL (3.2-5.0); Alkaline Phosphatase 177 U/L (45-117); Anion Gap 11 (5-15); BUN 29 mg/dL (7-18); BUN/Creat Ratio 12.3 RATIO (10-20); Chloride 113 mmol/L (98-107); Creatinine, Serum 2.36 mg/dL (0.70-1.30); EST Glomerular Filtration Rate 31 mL/min (>60); Est Glom Filt Rate - Afr Amer 37 mL/min (>60); Estimated Creatinine Clearance 38.82 ml/min; Globulin 3.8 g/dL (2.2-4.2); Glucose 117 mg/dL (74-106); Potassium 4.1 mmol/L (3.5-5.1); Protein, Total 6.7 g/dL (6.4-8.2); Sodium Level 140 mmol/L (136-145); Troponin-I HS 1499 pg/mL (3.0-78.0)
[2023-01-26 18:06] LABS: Lactic Acid 5.1 mmol/L (0.4-1.9)
--- NOTE | 2023-01-26 18:29 | US_ITS ---
STUDY: ABDOMINAL ULTRASOUND - RIGHT UPPER QUADRANT REASON FOR VISIT: Male, 57 years old Abdominal pain r/o acute cholecystitis TECHNIQUE: Ultrasound evaluation of the right upper quadrant was performed with real-time and static mena-scale imaging. TECHNICAL QUALITY: Adequate. COMPARISON: August 06, 2022 FINDINGS: Liver: The liver measures 17.7 cm. There is normal echogenicity of the liver. The bile ducts are within normal limits. There is hepatic color flow. The direction of portal flow is hepatopetal. There is no demonstrated mass lesion. There is mild ascites adjacent to the liver. Gallbladder: Normal distended gallbladder. The gallbladder wall measures 4 mm. There is a negative sonographic Gannon''s sign. There is no pericholecystic fluid. There are small gallstones. Common Bile Duct (C.B.D.): The common bile duct measures 6 mm. Pancreas: There is nonvisualization of the pancreas. There is no demonstrated pancreatic mass or cyst. Right Kidney: There is atrophy of the right kidney. The right kidney measures 6.4 cm. There is thinning of the renal cortex. There is 1.1 cm cyst. There is mild right hydronephrosis. There is transplant kidney in the right lower quadrant. There is no hydronephrosis of the transplant kidney. US/Gallbladder IMPRESSION: Small gallstones. Gallbladder wall thickening. No biliary dilatation. Electronically Signed: Miah Barrios MD at 20:02 EDT ,
[2023-01-26] MEDS: Piperacil/Tazobactam 4.5 GM in 0.9% Normal Saline (100mL MB+) 100 ML IV (18:42)
[2023-01-26 19:08] LABS: Mucous, Urine 0 SEEN /hpf (<or=2+); Squamous Epithelial Cells - UA 0 SEEN /hpf (0-5)
[2023-01-26 19:12] LABS: Color, Urine Yellow (Yellow); Glucose, Dipstick Normal (Normal); Ketone-Dipstick 5 mg/dl (Negative); Leukocyte Esterase-Dipstick 500 /ul (Negative); Nitrite-Dipstick Negative (Negative); Occult Blood-Urine 50 /ul (Negative); Protein-Dipstick 100 mg/dl (Negative); Urine Bilirubin Dipstick Negative (Negative); Urine Clarity Cloudy (Clear); Urine Urobilinogen Normal (Normal)
--- NOTE | 2023-01-26 19:15 | CT_ITS ---
EXAM: CT CHEST, ABDOMEN AND PELVIS WITHOUT INTRAVENOUS CONTRAST CLINICAL INDICATION: CP TECHNIQUE: Helically acquired images were obtained of the chest, abdomen and pelvis without intravenous contrast. This CT exam was performed using one or more of the following dose reduction techniques: automated exposure control, adjustment of the mA and/or kV according to patient size, and/or use of iterative reconstruction technique. RADIATION DOSE: CTDIvol = 19.64 mGy, DLP = 1884.83 mGy-cm COMPARISON: 08/06/2022 FINDINGS: CHEST: SUPRAHYOID NECK: Limited by motion and the absence of IV and oral contrast. LUNGS AND PLEURAL SPACES: Hyperexpansion of the lungs. Scarring or mild subsegmental atelectasis in the posterior left lung base. No mass. No pleural effusion or thickening. No pneumothorax. HEART: Mild to moderate cardiomegaly. No pericardial effusion. No significant coronary artery calcifications. MEDIASTINUM: Although no gross mediastinal or hilar mass or adenopathy is seen, adenopathy is difficult to exclude without IV contrast was not given. Esophagus is unremarkable. No hiatal hernia. THYROID: Unremarkable. No thyroid lesions. ABDOMEN: LIVER: Suspicious appearance of liver, question cirrhosis. No gross mass. GALLBLADDER AND BILE DUCTS: Abnormal gallbladder showing thickened wall, pericholecystic edema, and probable stones. No intra- or extrahepatic biliary ductal dilation. PANCREAS: Unremarkable. No focal cystic mass. SPLEEN: Unremarkable. Normal size without focal cystic or solid mass. ADRENALS: Unremarkable. No nodules. KIDNEYS AND URETERS: Stable appearance of transplant kidney in the right lower quadrant. No hydronephrosis. Stable appearance of both [place] kidneys which are markedly small with very little parenchymal tissue and numerous stable cysts. No stones. STOMACH AND BOWEL: Evaluation of the GI tract is limited by absence of oral contrast. Cannot exclude stomach wall thickening. No dilated loops of bowel or evidence for obstruction. Cannot exclude segmental thickening of the [place] of the small or large bowel. Cannot exclude enteritis or colitis. Moderate to marked diffuse fecal retention. Appendix within normal limits. PELVIS: APPENDIX: No evidence of acute appendicitis. BLADDER: Markedly abnormal bladder within which there is a Ga catheter. There is some intraluminal air. There is strong suspicion of wall thickening and intraluminal blood not excluded. There is perivesical stranding. Cystoscopy should be considered. REPRODUCTIVE: Unremarkable as visualized. No mass. CHEST, ABDOMEN and PELVIS: INTRAPERITONEAL SPACE: Unremarkable. No ascites or other fluid collection. No free air. BONES/JOINTS: Degenerative changes throughout the spine. No fractures are seen. Degenerative changes throughout the lumbar spine. No suspicious lytic or blastic abnormality. SOFT TISSUES: See above. VASCULATURE: Probable upper abdominal and mesenteric varices although exam limited by the absence of IV contrast. Aorta is non-dilated. LYMPH NODES: Unremarkable. No enlarged lymph nodes. CT/CT Chest, Abd, Pelvis WO Cont IMPRESSION: 1. Limited by motion and the absence of IV and oral contrast. 2. Cardiomegaly. 3. Probable COPD. Mild atelectasis or scarring in the posterior left lung base. 4. Severe bilateral renal atrophy, stable. Grossly stable and unremarkable right lower quadrant transplant kidney. 5. Evaluation of the GI tract limited, cannot exclude segments of bowel wall thickening. 6. Question cirrhosis with extensive varices. 7. Markedly abnormal bladder, suggest cystoscopy. 8. Cholelithiasis. Thickened gallbladder wall with pericholecystic edema. Electronically Signed: López Wong MD at 19:48 EDT ,
[2023-01-26 19:17] LABS: BNP,B-Type NATRIURETIC PEPTIDE 928.8 pg/mL (0-100)
[2023-01-26 19:35] LABS: Bacteria 2+ /hpf (None Seen); White Blood Cells >100 SEEN /hpf (0-5)
[2023-01-26 19:36] LABS: Red Blood Cells-Urine 0-5 SEEN /hpf (0-5)
[2023-01-26] MEDS: Vancomycin HCl 1,250 MG in 0.9% Normal Saline (250mL Bag) 250 ML 167 MG IV (19:44)
[2023-01-26] MEDS: Aspirin 325 MG Tablet PO (19:49)
[2023-01-26] MEDS: 0.9% Normal Saline (250mL Bag) 250 ML 15 ML IV (19:49)
[2023-01-26 20:24] LABS: Troponin-I HS 1381 pg/mL (3.0-78.0)
[2023-01-26] MEDS: VIAFLEX IV (20:24)
[2023-01-26] MEDS: NORMAL SALINE IV (20:24)
--- NOTE | 2023-01-26 21:15 | PCM.HP.STD ---
HPI - General General Date of Admission: 01/26/23 Date of Service: 01/26/23 Chief Complaint: Fever HPI Narrative ROOSEVELT GARCIA, is a 57 M intermediate patient with significant history of vocal cord dysfunction; kidney transplantation on immunosuppression; hepatic encephalopathy; DVT; and CKD stage IIIb who presents to the emergency department with fever. Reportedly patient visited someone at a intermediate who had sniffles just before his symptoms started. Reportedly patient typically has UTIs with fevers. However he has not complained of any urinary symptoms. History was taken from emergency department doctor who also took history from patient's family as patient is unable to give appropriate history probably secondary to history of encephalopathy and vocal cord dysfunction. Of note patient has a dialysis fistula/shunt in his right forearm that he says was use before he had a kidney transplant. [facility] [place] Medical History Anemia in chronic illness Bladder dysfunction Bronchitis Chronic kidney disease, stage 3b CKD (chronic kidney disease), stage III Congenital nystagmus DVT (deep venous thrombosis) History of DVT (deep vein thrombosis) History of encephalopathy History of pulmonary embolism HTN (hypertension) Immunosuppressed status Mild intellectual disability Myocardial infarct Neurogenic bladder disorder Neutropenia Pancytopenia Pulmonary embolism Severe protein-calorie malnutrition Urinary retention Vocal cord dysfunction Home Medications mycophenolate mofetil 500 mg tablet 500 mg PO BID TRANSPLANT ANTI-REJECTION 07/14/16 [History Last Taken 01/26/23] multivitamin 1 tab PO DAILY SUPPLEMENT 02/13/22 [History Last Taken 01/26/23] lactulose 20 gram/30 mL oral solution 30 ml PO TID CONSTIPATION 06/13/22 [History Last Taken 01/26/23] rifaximin 550 mg tablet (Xifaxan) 550 mg PO BID ANTIBIOTIC 07/16/22 [History Last Taken 01/26/23] sodium bicarbonate 650 mg tablet 1,300 mg PO TID HEARTBURN/INDIGESTION 07/16/22 [History Last Taken 01/26/23] magnesium hydroxide 400 mg/5 mL oral suspension (Dulcolax (magnesium hydroxide)) 30 ml PO Q24H PRN CONSTIPATION 11/01/22 [History Last Taken Unknown] mineral oil (Fleet Mineral Oil enema) 118 ml [place] DAILY PRN CONSTIPATION 11/01/22 [History Last Taken Unknown] mirtazapine 30 mg tablet 30 mg PO QHS DEPRESSION 11/01/22 [History Last Taken 01/25/23] diltiazem HCl 120 mg tablet,extended release 24 hr (Cardizem LA) 120 mg PO DAILY BLOOD PRESSURE #30 tabs 01/01/23 [Rx Last Taken 01/26/23] metoprolol tartrate 25 mg tablet 25 mg PO BID BLOOD PRESSURE #0 tabs 01/01/23 [Rx Last Taken 01/26/23] tacrolimus 0.5 mg capsule, immediate-release 0.5 mg PO BID TRANSPLANT ANTI-REJECTION 01/15/23 [History Last Taken 01/26/23] atorvastatin 40 mg tablet 40 mg PO DAILY CHOLESTEROL 01/26/23 [History Last Taken 01/25/23] Allergy/AdvReac Type Severity Reaction Status Date / Time red dye Allergy PT UNSURE Verified 01/26/23 16:51 OF REACTION Family History Mother Hypertension Father Diabetes Surgical History Kidney transplant recipient Renal transplant recipient S/P arteriovenous (AV) fistula creation Social History household members: none housing: intermediate Smoking Status: Never smoker second hand exposure: No alcohol intake: never substance use type: does not use caffeine: No ROS Review of Systems ROS Unobtainable: due to mental condition Vital Signs Vital Signs Vital Signs: 01/26/23 17:05 01/26/23 16:48 01/26/23 16:48 Temperature 101.4 F H Temperature Source Oral Pulse Rate 100 107 H Respiratory Rate 22 H 22 H Respiratory Effort Short of Breath Respiratory Pattern Tachypnea Blood Pressure 123/70 H 132/74 H Blood Pressure Mean 87 93 Pulse Ox 97 100 Oxygen Delivery Method Room Air Room Air 01/26/23 17:11 01/26/23 18:48 01/26/23 17:51 Temperature 98.2 F Temperature Source Oral Pulse Rate 91 100 Respiratory Rate 18 22 H Respiratory Effort Respiratory Pattern Blood Pressure 119/66 125/70 H Blood Pressure Mean 83 88 Pulse Ox 89 97 Oxygen Delivery Method Room Air Room Air 01/26/23 18:00 01/26/23 19:00 01/26/23 20:00 Temperature 99.3 F H 98.4 F 98.7 F Temperature Source Oral Oral Oral Pulse Rate 91 88 84 Respiratory Rate 18 25 H 19 H Respiratory Effort Respiratory Pattern Blood Pressure 119/66 107/78 123/66 H Blood Pressure Mean 83 87 85 Pulse Ox 98 97 97 Oxygen Delivery Method Room Air Room Air Room Air 01/26/23 19:30 01/26/23 19:37 01/26/23 19:40 Temperature Temperature Source Pulse Rate 88 88 Respiratory Rate 21 H 21 H Respiratory Effort Respiratory Pattern Blood Pressure 107/64 Blood Pressure Mean 76 Pulse Ox 97 98 Oxygen Delivery Method 01/26/23 19:45 01/26/23 19:50 01/26/23 20:00 Temperature Temperature Source Pulse Rate 87 88 88 Respiratory Rate 15 25 H 21 H Respiratory Effort Respiratory Pattern Blood Pressure 107/78 Blood Pressure Mean 86 Pulse Ox 97 97 96 Oxygen Delivery Method 01/26/23 20:10 01/26/23 20:20 Temperature Temperature Source Pulse Rate 87 86 Respiratory Rate 21 H 24 H Respiratory Effort Respiratory Pattern Blood Pressure 125/68 H Blood Pressure Mean 87 Pulse Ox 94 96 Oxygen Delivery Method Weight Weight: 88.904 kg Body Mass Index (BMI) 26.6 Physical Exam Narrative Physical exam: General: Well-nourished, well-developed. Head: Normocephalic, atraumatic, no tenderness Eyes: Vision is grossly intact. ENT, no trauma, moist mucous membranes, no rhinorrhea Neck: Nontender, No thyromegaly. CVS: Tachycardia. S1-S2 present. No murmur, gallop or rub. Respiratory : clear to auscultation bilaterally, chest wall nontender Abdomen: Soft, nontender, obese, normal bowel sounds, no masses : Deferred Back: Nontender, no CVA tenderness Extremities: Nontender; no edema Skin: Normal color, no trauma, abrasions Neuro: Alert, dysarthria. Tangential speech Psychiatry: Normal mood. Normal affect. Results Lab / Micro Data 01/26/23 17:10 01/26/23 17:10 Labs: Laboratory Results - last 24 hr 01/26/23 17:10: WBC 14.4 H, RBC 3.71 L, Hgb 9.9 L, Hct 32.2 L, MCV 86.8, MCH 26.7 L, MCHC 30.7 L, RDW Std Deviation 55.2 H, RDW Coeff of Anil 17.5 H, Plt Count 205, MPV 10.5, Immature Gran % (Auto) 0.500, Neut % (Auto) 89.9 H, Lymph % (Auto) 2.2 L, Harmon % (Auto) 7.3, Eos % (Auto) 0.0, Baso % (Auto) 0.1, Absolute Neuts (auto) 13.0 H, Absolute Lymphs (auto) 0.31 L, Nucleated RBC % 0, Differential Comment SCANNED, PT 15.8 H, INR 1.3, APTT 30.1, Sodium 140, Potassium 4.1, Chloride 113 H, Carbon Dioxide 16.0 L, Anion Gap 11, BUN 29 H, Creatinine 2.36 H, Estim Creat Clear Calc 38.82, Est GFR (MDRD) Af Amer 37 L, Est GFR (MDRD) Non-Af 31 L, BUN/Creatinine Ratio 12.3, Glucose 117 H, Lactic Acid 5.1 H*, Calcium 8.0 L, Total Bilirubin 3.10 H, AST 248 H, ALT 137 H, Alkaline Phosphatase 177 H, Troponin I High Sens 1499 H*, B-Natriuretic Peptide 928.8 H, Total Protein 6.7, Albumin 2.9 L, Globulin 3.8, Albumin/Globulin Ratio 0.8 L 01/26/23 18:59: Urine Color Yellow, Urine Clarity Cloudy, Urine pH 5.0, Ur Specific [place] 1.010, Urine Protein 100 H, Urine Glucose (UA) Normal, Urine Ketones 5 H, Urine Occult Blood 50 H, Urine Nitrite Negative, Urine Bilirubin Negative, Urine Urobilinogen Normal, Ur Leukocyte Esterase 500 H, Urine RBC 0-5 SEEN, Urine WBC >100 SEEN, Ur Squamous Epith Cells 0 SEEN, Urine Bacteria 2+, Urine Mucus 0 SEEN 01/26/23 19:52: Troponin I High Sens 1381 H* Micro: Microbiology 01/26/23 17:50 Nasal Secretion SARS-CoV-2 Antigen (Rapid) - Final Radiology Impression Chest X-Ray 01/26/23 17:25 IMPRESSION: Probable atelectasis or infiltrate in the left lung base. Suggest further evaluation with CT scan. Electronically Signed: López Wong MD at 17:47 EDT , Gallbladder Ultrasound 01/26/23 18:29 IMPRESSION: Small gallstones. Gallbladder wall thickening. No biliary dilatation. Electronically Signed: Miah Barrios MD at 20:02 EDT , Chest/Abdomen/Pelvis CT 01/26/23 19:15 IMPRESSION: 1. Limited by motion and the absence of IV and oral contrast. 2. Cardiomegaly. 3. Probable COPD. Mild atelectasis or scarring in the posterior left lung base. 4. Severe bilateral renal atrophy, stable. Grossly stable and unremarkable right lower quadrant transplant kidney. 5. Evaluation of the GI tract limited, cannot exclude segments of bowel wall thickening. 6. Question cirrhosis with extensive varices. 7. Markedly abnormal bladder, suggest cystoscopy. 8. Cholelithiasis. Thickened gallbladder wall with pericholecystic edema. Electronically Signed: López Wong MD at 19:48 EDT , Assessment & Plan Assessment/Plan (1) Chronic kidney disease: QUALIFIERS: Chronic kidney disease stage: stage 3 (moderate) Chronic kidney disease stage 3 subtype: stage 3a (GFR 45-59) Qualified Code(s): N18.31 - Chronic kidney disease, stage 3a (2) PRISCILLA (acute kidney injury): (3) Septic shock: (4) Elevated troponin: PLAN: Plan Septic shock secondary to UTI. The patient presented with sepsis due to (UTI) with acute sepsis related organ dysfunction as evidenced by (lactic acidosis; PRISCILLA). SIRS criteria: Temperature more than 100.9 Fahrenheit (Tmax of 101.4 Fahrenheit in patient's case) Respiratory rate more than 20 (25 in patient case) Heart rate more than 90 (107 patient's case with EKG findings of sinus tachycardia with rate of 103) WBC more than 12,000 (14,400 patient case) organ dysfunction: SBP less than 90 or MAP less than 65 Acute respiratory failure Creatinine more than 2 (creatinine of 2.36 on presentation when his creatinine on 01/16/2023 was 1.46; with baseline creatinine of about 1.5) Bilirubin more than 2 mg/dL (bilirubin of 3.10; highest so far on record) Lactate more than 2 mmol/L that is 5.1 patient case). Other causes of his sepsis could be biliary disease; cholecystitis; etc. Abdomen/pelvis CT interpreted by radiology as thickened gallbladder wall with pericholecystic edema. Follow-up ultrasound did not confirm cholecystitis. We will get HIDA scan Elevated liver enzymes/hyperbilirubinemia Chest/abdomen/pelvis showed extensive varices. Of note patient is on home Xifaxan and lactulose. Trend CMP. Check EBV and CMV. GI consult. PRISCILLA on CKD stage IIIb His creatinine on presentation was 2.36. His creatinine 10 days ago was 1.46. Baseline creatinine is about 1.50. Receive 30 ml kilogram normal saline by septic shock protocol. Gentle IV hydration continue. Avoid nephrotoxic's. Elevated troponin/non-STEMI With decreasing trend and reported to complain of chest pain we will treat as NSTEMI. Started on heparin drip. Received full dose aspirin emergency department. Baby aspirin daily ordered. Home statin discontinued secondary to liver injury. EKG does not show ST elevation. EKG with minus tachycardia of 103 Cardiology consult. DVT prophylaxis: Not indicated as patient be started on heparin drip for non-STEMI. Time spent in the patient's overall evaluation,decision-making process, review of diagnostic data, adjustment of management, discussion with other providers, nursing nursing and ancillary staff involved in patient's care documentation, 75 minutes. Sepsis Attestation Sepsis Alert: Yes Sepsis Attestation: Agree w/Sepsis Date exam was performed: 01/26/23 Time exam was performed: 21:15 Possible Source of Sepsis: Genitourinary Sepsis Organ Dysfunction Criteria Present: Creatinine > 2.0 mg/dL and Lactic Acid > 2 mmol/L Fluid Resuscitation Fluid resuscitation indicated?: Yes Fluid Resuscitation ordered: 30 ml/kg fluid bolus ordered Charges/Coding Visit Charges Inpatient E&M: 02604 Init Hosp L3
[2023-01-26 21:19] LABS: Reflex Lactate? Y
[2023-01-26 21:40] LABS: CPK Total, Creatine Kinase 143 U/L (39-308)
--- NOTE | 2023-01-26 22:00 | ED.RN ---
UPDATE PROVIDED TO SISTER, ABELINO DYSON
[2023-01-26 22:10] LABS: Lactic Acid 2.1 mmol/L (0.4-1.9)
--- NOTE | 2023-01-26 22:23 | ED.RN ---
CALLED REPORT PRIMARY ICU NURSE
[2023-01-27] VITALS (24 sets, daily range): BP systolic 110–150; BP diastolic 49–90; PULSE 83–99; RESP 17–28; TEMP 36.8–38.9; O2SAT 91–100; BMI 27.3
[2023-01-27] MEDS: rifAXIMin 550 MG Tablet PO ×3 (00:16→20:47)
[2023-01-27] MEDS: Lactulose 20 GM/30 ML UDC PO ×4 (00:16→20:44)
[2023-01-27] MEDS: Metoprolol Tartrate 25 MG Tablet PO ×3 (00:16→20:45)
[2023-01-27] MEDS: HEPARIN/D5w 25,000 UNITS 25,000 UNITS/250 ML IV.SOLN. 10 UNITS CONT INF (00:16)
[2023-01-27] MEDS: Tacrolimus 0.5 MG Capsule PO ×3 (00:17→20:47)
[2023-01-27] MEDS: 0.9% Normal Saline (1000mL) 1,000 ML 75 ML IV ×2 (00:17→14:06)
[2023-01-27] MEDS: Sodium Bicarbonate 650 MG Tablet 1300 MG PO ×4 (00:17→20:48)
[2023-01-27] MEDS: Mirtazapine 30 MG Tablet PO ×2 (00:17→20:48)
[2023-01-27] MEDS: Mycophenolate Mofetil 250 MG Capsule 500 MG PO ×3 (00:23→20:47)
[2023-01-27] MEDS: Heparin Injection (Vial) 5,000 UNIT/ML VIAL 4000 UNIT IV (00:24)
[2023-01-27 00:38] LABS: Troponin-I HS 1362 pg/mL (3.0-78.0)
--- NOTE | 2023-01-27 00:40 | NURSING ---
Pts primary rn aware of troponin result of 1362 at this time.
[2023-01-27 02:31] LABS: M R Staph aureus DNA By PCR Negative (Negative); Probe Check PASS; Specimen Processing Control PASS
[2023-01-27 03:23] LABS: Absolute Lymphocyte Count 0.37 X10^3/uL (0.83-4.51); Absolute Neutrophil Count 8.7 X10^3/uL (2.0-7.7); Basophil# 0.03 X10^3/uL; Basophil% 0.3 % (0-1); Eosinophil# 0.06 X10^3/uL; Eosinophils% 0.6 % (0-5); Hematocrit 25.3 % (40-54); Hemoglobin 7.9 g/dL (13.0-16.5); Lymphocyte # 0.37 X10^3/ul (0.83-4.51); Lymphocyte % 3.6 % (19-41); Mean Corp Hgb Conc 31.2 g/dL (32-36); Mean Corpuscular Hgb 27.2 pg (27.0-32.0); Mean Corpuscular Volume 87.2 fL (80-94); Mean Platelet Vol. 10.7 fl (6.2-12.0); Monocyte# 0.96 X10^3/uL; Monocyte% 9.5 % (0-10); NRBC Flagged by Analyzer 0 % (0-5); Neutrophil # 8.69 X10^3/uL (2.7-7.7); Neutrophil % 85.7 % (47-70); POSITIVE DIFFERENTIAL YES; Platelet Count 170 K/mm3 (150-450); RBC Distribution Width CV 17.5 % (11.6-14.6); RBC Distribution Width SD 55.4 fl (35.1-43.9); White Blood Count 10.1 K/mm3 (4.4-11.0)
[2023-01-27 03:26] LABS: Differential Indicated SCAN CRITERIA MET
[2023-01-27 03:46] LABS: ALB/GLOB Ratio 0.7 RATIO (0.9-2.4); AST(SGOT) 134 U/L (15-37); Alanine Aminotransfer ALT/SGPT 92 U/L (16-61); Albumin, Serum 2.1 g/dL (3.2-5.0); Alkaline Phosphatase 123 U/L (45-117); Anion Gap 6 (5-15); BUN 30 mg/dL (7-18); BUN/Creat Ratio 16.2 RATIO (10-20); Calcium,Total 6.6 mg/dL (8.5-10.1); Chloride 122 mmol/L (98-107); Creatinine, Serum 1.85 mg/dL (0.70-1.30); EST Glomerular Filtration Rate 40 mL/min (>60); Est Glom Filt Rate - Afr Amer 49 mL/min (>60); Estimated Creatinine Clearance 49.52 ml/min; Glucose 115 mg/dL (74-106); Protein, Total 5.1 g/dL (6.4-8.2); Sodium Level 146 mmol/L (136-145)
[2023-01-27 03:49] LABS: Differential Comment SCANNED
--- NOTE | 2023-01-27 05:55 | ECHOD_ITS ---
Reason For Study: Elevated BNP Procedure This was a 2D Doppler, Color Flow transthoracic echocardiogram. Exam performed portable in ICU/CCU. Left Ventricle Normal LV size. Mild concentric left ventricular hypertrophy. Left ventricular systolic function is normal. The estimated ejection fraction is 55 %. Diastolic function is indeterminate. No regional wall motion abnormalities noted. Right Ventricle Normal RV size. Normal systolic function. Atria The left atrium is severely enlarged. The right atrium is moderately enlarged. Mitral Valve The mitral valve is structurally normal. No prolapse or stenosis seen. Mild (1+) mitral valve insufficiency. Tricuspid Valve Normal tricuspid valve. Mild (1+) tricuspid valve insufficiency. Right ventricular systolic pressure estimated to be 53 mmHg. Aortic Valve Trisinus/trileaflet aortic valve. Pulmonic Valve Normal pulmonic valve. Trivial pulmonic valve insufficiency. Great Vessels Normal aortic root. Pericardium/Pleural No pericardial effusion. MMode/2D Measurements & Calculations LVIDd: 5.0 cm IVSd: 1.3 cm Ao root diam: 3.1 cm LVIDs: 3.4 cm LVPWd: 1.3 cm RVDd: 4.3 cm FS: 32.5 % LAV(MOD-bp): 135.2 ml LVAd ap4: 46.5 cm2 LVAd ap2: 48.9 cm2 LAV(MOD-bp) Indexed: 63.7 ml/m2 LVLd ap4: 10.0 cm LVLd ap2: 10.5 cm LAV(MOD-sp2): 107.7 ml EDV(MOD-sp4): 178.2 ml EDV(MOD-sp2): 189.3 ml LAV(MOD-sp4): 169.5 ml EDV(sp4-el): 184.4 ml EDV(sp2-el): 194.1 ml LVAs ap4: 28.1 cm2 LVAs ap2: 31.9 cm2 LVLs ap4: 8.4 cm LVLs ap2: 9.5 cm ESV(MOD-sp4): 77.0 ml ESV(MOD-sp2): 91.4 ml ESV(sp4-el): 79.3 ml ESV(sp2-el): 90.7 ml EF(MOD-sp4): 56.8 % EF(MOD-sp2): 51.7 % EF(sp4-el): 57.0 % SV(MOD-sp4): 101.2 ml SV(MOD-sp2): 97.9 ml SV(sp4-el): 105.1 ml LA dimension(2D): 5.1 cm LA A4 area: 38.4 cm2 RA A4 area: 27.5 cm2 TAPSE: 2.2 cm Doppler Measurements & Calculations MV E max phi: 117.8 cm/sec Lat Peak E' Phi: 12.7 cm/sec Med Peak E' Phi: 10.6 cm/sec E/E' lat: 9.2 E/E' med: 11.1 Ao V2 max: 144.7 cm/sec LV V1 max: 120.7 cm/sec PA V2 max: 93.5 cm/sec Ao max P.4 mmHg LV V1 max P.8 mmHg Ao V2 mean: 112.5 cm/sec LV V1 mean P.4 mmHg Ao mean P.5 mmHg LV V1 mean: 88.0 cm/sec Ao V2 VTI: 27.9 cm LV V1 VTI: 22.6 cm AV (velocity ratio): 0.81 TR max phi: 336.3 cm/sec TR max P.2 mmHg ECHO/Echo Complete Interpretation Summary The estimated ejection fraction is 55 %. Diastolic function is indeterminate. Mild (1+) mitral valve insufficiency. Mild (1+) tricuspid valve insufficiency. Right ventricular systolic pressure estimated to be 53 mmHg. The left atrium is severely enlarged. The right atrium is moderately enlarged. Ordering Physician: Raúl Calvillo Referring Physician: Mike Bella Performed By: Asia Kinney RDCS
--- NOTE | 2023-01-27 05:55 | NM_ITS ---
Nuclear medicine HIDA scan Indication: Cholelithiasis, sepsis COMPARISON STUDIES : NM - None. CR - Not available for review at this time. CT - Not available for review at this time. MR - Not available for review at this time. Technique: 5.6 mCi of technetium 99m labeled mebrofenin was injected intravenously followed by standard imaging. 1.8 mcg of CCK was injected intravenously for calculation of gallbladder ejection fraction. Findings: There is homogenous activity throughout the liver. Normal excretion of isotope into the proximal small bowel. Activity in the gallbladder is identified at 45 minutes. Gallbladder ejection fraction is not measurable (due to progressive increase) but less than 10%. NM/Hepatobilliary Img w/Pharm Int IMPRESSION: Documented filling of the gallbladder without evidence of acute cholecystitis or biliary obstruction. A gallbladder ejection fraction calculated to be less than 35% following the administration of Cholecystokinin makes the probability of functional hepatobiliary disease (gallbladder and/or sphincter of Oddi dyskinesia) and/or organic hepatobiliary disease (chronic acalculous cholecystitis and/or cystic duct syndrome) to be high. (Alexander Rendon et al, Journal of Nuclear Medicine 32:1695, 1991). Electronically Signed: Contreras Nolasco MD ([place]) at 12:14 EDT ,
--- NOTE | 2023-01-27 07:29 | EX.PCM.CONCC ---
Assessment & Plan Assessment/Plan (1) Septic shock: (2) Chronic kidney disease: QUALIFIERS: Chronic kidney disease stage: stage 3 (moderate) Chronic kidney disease stage 3 subtype: stage 3a (GFR 45-59) Qualified Code(s): N18.31 - Chronic kidney disease, stage 3a (3) Cholecystitis: PLAN: Plan RECOMMENDATIONS: 1. Await GI consult 2. Continue empiric antibiotics 3. Hold on additional fluid boluses if possible 4. Clarify history with family when present 5. Hemodynamically stable on room air. Will sign off from a critical care perspective IMPRESSIONS: 1. Sepsis of unclear etiology Patient has findings and UTI. Patient does have a fever on presentation. Patient is on immunosuppressive medications because of this. Patient does have a abdominal ultrasound showing possible cirrhosis with extensive varices. Patient is on rifaximin and lactulose at baseline and these can be continued. Patient is on broad-spectrum antibiotics at this time and tolerating well. 2. Elevated troponin versus non-STEMI Patient did not have significant hypotension or hypoxia on presentation, but did have significant elevation of troponin and BNP. Patient was initiated on a heparin drip. Patient is in sinus rhythm at this time. Would use caution with 10 a inhibitors given patient's reported varices. Patient has not had any significant ectopy noted on telemetry. 3. Elevated liver enzymes/hyperbilirubinemia/possible cirrhosis/varices Patient does not have findings consistent with GI bleed at this time, but hemoglobin is lower at 7.9. Baseline appears to be around 11. Patient is not reporting any melena or hematochezia. No hematemesis has been reported. GI has been consulted. 4. Acute kidney injury on CKD stage IIIb Baseline creatinine appears to be about 1.5 and patient presented with a creatinine of 2.36. This is slightly improved after fluid resuscitation. No indication for renal replacement therapy. We will continue to monitor. HPI Consult Data Date of Consult: 01/27/23 HPI Narrative Reason for Consultation: Sepsis HPI Narrative: ROOSEVELT GARCIA is a 57 M, with past medical history listed below, who presents to [facility] on 01[facility]26/2023 secondary to fever. 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 Patient is a very poor historian and unable to provide much additional history. Patient reportedly had a recent sick contact, but has not reported any urinary symptoms. Patient was seen in July with similar type symptoms. In the ER, patient was noted to have a temperature of 101.4 ?F, tachycardic at 107 bpm and normotensive. Patient was saturating well on room air. Laboratory data showed a white blood cell count of 14.4, hemoglobin of 9.9 and platelets of 205. Coagulation studies were within normal limits. Chemistry showed a bicarbonate of 16 with a creatinine of 2.36 and lactate of 5.1. Total bilirubin was elevated at 3.1 with slight elevation in liver enzymes. Patient did have an elevated troponin at almost 1500 with a BNP of 928. Urinalysis did have 2+ bacteria with WBCs and leukocyte esterase. Chest x-ray showed possible atelectasis and the left base and a gallbladder ultrasound did show small gallstones with gallbladder wall thickening. A CT of the abdomen pelvis and chest showed some emphysematous changes with severe renal atrophy, possible cirrhosis and extensive varices and a markedly abnormal bladder. Patient did have an element of pericholecystic edema. Patient was given 30 cc/kg fluid bolus and antibiotics. Patient admitted to the intensive care unit for further monitoring. Since being in the intensive care unit, patient has not required any pressors. Patient has received antibiotics and was noted to have a fever. Patient has been tolerating room air. Patient is reporting periumbilic abdominal pain without carlos nausea. Unable to obtain a full review of systems secondary to mentation [facility] Medical History Anemia in chronic illness Bladder dysfunction Bronchitis Chronic kidney disease, stage 3b CKD (chronic kidney disease), stage III Congenital nystagmus DVT (deep venous thrombosis) History of DVT (deep vein thrombosis) History of encephalopathy History of pulmonary embolism HTN (hypertension) Immunosuppressed status Mild intellectual disability Myocardial infarct Neurogenic bladder disorder Neutropenia Pancytopenia Pulmonary embolism Severe protein-calorie malnutrition Urinary retention Vocal cord dysfunction Home Medications mycophenolate mofetil 500 mg tablet 500 mg PO BID TRANSPLANT ANTI-REJECTION 07/14/16 [History Last Taken 01/26/23] multivitamin 1 tab PO DAILY SUPPLEMENT 02/13/22 [History Last Taken 01/26/23] lactulose 20 gram/30 mL oral solution 30 ml PO TID CONSTIPATION 06/13/22 [History Last Taken 01/26/23] rifaximin 550 mg tablet (Xifaxan) 550 mg PO BID ANTIBIOTIC 07/16/22 [History Last Taken 01/26/23] sodium bicarbonate 650 mg tablet 1,300 mg PO TID HEARTBURN/INDIGESTION 07/16/22 [History Last Taken 01/26/23] magnesium hydroxide 400 mg/5 mL oral suspension (Dulcolax (magnesium hydroxide)) 30 ml PO Q24H PRN CONSTIPATION 11/01/22 [History Last Taken Unknown] mineral oil (Fleet Mineral Oil enema) 118 ml CO DAILY PRN CONSTIPATION 11/01/22 [History Last Taken Unknown] mirtazapine 30 mg tablet 30 mg PO QHS DEPRESSION 11/01/22 [History Last Taken 01/25/23] diltiazem HCl 120 mg tablet,extended release 24 hr (Cardizem LA) 120 mg PO DAILY BLOOD PRESSURE #30 tabs 01/01/23 [Rx Last Taken 01/26/23] metoprolol tartrate 25 mg tablet 25 mg PO BID BLOOD PRESSURE #0 tabs 01/01/23 [Rx Last Taken 01/26/23] tacrolimus 0.5 mg capsule, immediate-release 0.5 mg PO BID TRANSPLANT ANTI-REJECTION 01/15/23 [History Last Taken 01/26/23] atorvastatin 40 mg tablet 40 mg PO DAILY CHOLESTEROL 01/26/23 [History Last Taken 01/25/23] Allergy/AdvReac Type Severity Reaction Status Date / Time red dye Allergy PT UNSURE Verified 01/26/23 16:51 OF REACTION Family History Mother Hypertension Father Diabetes Surgical History Kidney transplant recipient Renal transplant recipient S/P arteriovenous (AV) fistula creation Social History household members: none housing: [facility] Smoking Status: Never smoker second hand exposure: No alcohol intake: never substance use type: does not use caffeine: No ROS ROS Narrative See HPI Physical Exam Const alert and no apparent distress Constitutional Narrative: Significant dysarthria with garbled speech General Appearance: cooperative HEENT normocephalic and head/scalp atraumatic Eyes PERRL, EOMs intact bilaterally, conjunctivae normal and no scleral icterus Neck full ROM and no lymphadenopathy Chest inspection of chest normal Resp normal respiratory effort Effort and Inspection: Negative for tachypneic or actively coughing Auscultation: Negative for rales, rhonchi or wheezes Cardio regular rate, S1 normal heart sound, S2 normal heart sound, no murmurs, no rub and no gallops GI Inspection: abdominal distention Palpation: tender periumbilical; Negative for guarding or rigid Extremity no clubbing, cyanosis or edema Extremity Narrative: Large AV fistula at the wrist Skin no rashes or lesions noted Neuro CN's II-XII intact bilaterally Psych Activity / Motor Behavior: restless Mood & Affect: flat affect Medical Records Data Attestation: I reviewed the patient's medical records Lab / Micro Data Attestation: I reviewed the patient's lab results. 01/27/23 03:15 01/27/23 03:15 Labs: Laboratory Results - last 24 hr 01/26/23 17:10: WBC 14.4 H, RBC 3.71 L, Hgb 9.9 L, Hct 32.2 L, MCV 86.8, MCH 26.7 L, MCHC 30.7 L, RDW Std Deviation 55.2 H, RDW Coeff of Anil 17.5 H, Plt Count 205, MPV 10.5, Immature Gran % (Auto) 0.500, Neut % (Auto) 89.9 H, Lymph % (Auto) 2.2 L, [place] % (Auto) 7.3, Eos % (Auto) 0.0, Baso % (Auto) 0.1, Absolute Neuts (auto) 13.0 H, Absolute Lymphs (auto) 0.31 L, Nucleated RBC % 0, Differential Comment SCANNED, PT 15.8 H, INR 1.3, APTT 30.1, Sodium 140, Potassium 4.1, Chloride 113 H, Carbon Dioxide 16.0 L, Anion Gap 11, BUN 29 H, Creatinine 2.36 H, Estim Creat Clear Calc 38.82, Est GFR (MDRD) Af Amer 37 L, Est GFR (MDRD) Non-Af 31 L, BUN/Creatinine Ratio 12.3, Glucose 117 H, Lactic Acid 5.1 H*, Calcium 8.0 L, Total Bilirubin 3.10 H, AST 248 H, ALT 137 H, Alkaline Phosphatase 177 H, Troponin I High Sens 1499 H*, B-Natriuretic Peptide 928.8 H, Total Protein 6.7, Albumin 2.9 L, Globulin 3.8, Albumin/Globulin Ratio 0.8 L 01/26/23 18:59: Urine Color Yellow, Urine Clarity Cloudy, Urine pH 5.0, Ur Specific [place] 1.010, Urine Protein 100 H, Urine Glucose (UA) Normal, Urine Ketones 5 H, Urine Occult Blood 50 H, Urine Nitrite Negative, Urine Bilirubin Negative, Urine Urobilinogen Normal, Ur Leukocyte Esterase 500 H, Urine RBC 0-5 SEEN, Urine WBC >100 SEEN, Ur Squamous Epith Cells 0 SEEN, Urine Bacteria 2+, Urine Mucus 0 SEEN 01/26/23 19:52: Total Creatine Kinase 143, Troponin I High Sens 1381 H* 01/26/23 21:27: Lactic Acid 2.1 H* 01/27/23 00:05: Troponin I High Sens 1362 H*, MRSA (PCR) Negative 01/27/23 03:15: WBC 10.1, RBC 2.90 L, Hgb 7.9 L, Hct 25.3 L, MCV 87.2, MCH 27.2, MCHC 31.2 L, RDW Std Deviation 55.4 H, RDW Coeff of Anil 17.5 H, Plt Count 170, MPV 10.7, Immature Gran % (Auto) 0.300, Neut % (Auto) 85.7 H, Lymph % (Auto) 3.6 L, [place] % (Auto) 9.5, Eos % (Auto) 0.6, Baso % (Auto) 0.3, Absolute Neuts (auto) 8.7 H, Absolute Lymphs (auto) 0.37 L, Nucleated RBC % 0, Differential Comment SCANNED, Sodium 146 H, Potassium 4.0, Chloride 122 H, Carbon Dioxide 18.0 L, Anion Gap 6, BUN 30 H, Creatinine 1.85 H, Estim Creat Clear Calc 49.52, Est GFR (MDRD) Af Amer 49 L, Est GFR (MDRD) Non-Af 40 L, BUN/Creatinine Ratio 16.2, Glucose 115 H, Calcium 6.6 L, Total Bilirubin 2.50 H, AST 134 H, ALT 92 H, Alkaline Phosphatase 123 H, B-Natriuretic Peptide 810.7 H, Total Protein 5.1 L, Albumin 2.1 L, Globulin 3.0, Albumin/Globulin Ratio 0.7 L Micro: Microbiology 01/27/23 00:05 Urine Catheter - Ga Legionella Antigen - Final 01/27/23 00:05 Urine Catheter - Ga Streptococcus pneumoniae Antigen (M - Final 01/26/23 17:50 Nasal Secretion SARS-CoV-2 Antigen (Rapid) - Final Radiology Impression Chest X-Ray 01/26/23 17:25 IMPRESSION: Probable atelectasis or infiltrate in the left lung base. Suggest further evaluation with CT scan. Electronically Signed: López Wong MD at 17:47 EDT , Gallbladder Ultrasound 01/26/23 18:29 IMPRESSION: Small gallstones. Gallbladder wall thickening. No biliary dilatation. Electronically Signed: Miah Barrios MD at 20:02 EDT , Chest/Abdomen/Pelvis CT 01/26/23 19:15 IMPRESSION: 1. Limited by motion and the absence of IV and oral contrast. 2. Cardiomegaly. 3. Probable COPD. Mild atelectasis or scarring in the posterior left lung base. 4. Severe bilateral renal atrophy, stable. Grossly stable and unremarkable right lower quadrant transplant kidney. 5. Evaluation of the GI tract limited, cannot exclude segments of bowel wall thickening. 6. Question cirrhosis with extensive varices. 7. Markedly abnormal bladder, suggest cystoscopy. 8. Cholelithiasis. Thickened gallbladder wall with pericholecystic edema. Electronically Signed: López Wong MD at 19:48 EDT , Charges/Coding Visit Charges Inpatient E&M: 13304 Init Hosp L3
--- NOTE | 2023-01-27 08:10 | PN.HOSP_ITS ---
Subjective Subjective Pain speaking. Objective Data Objective Data Vital Signs: Vital Signs Temp Pulse Resp BP Pulse Ox O2 Del Method 37.2 C 91 17 115/72 98 Room Air 01/27/23 04:00 01/27/23 07:00 01/27/23 07:00 01/27/23 07:00 01/27/23 07:00 01/27/23 07:00 Oxygen Delivery Method Room Air Weight: 91.5 kg Body Mass Index (BMI) 27.3 Intake & Output: Intake and Output for Last 24 Hours 01/25/23 01/26/23 01/27/23 23:59 23:59 23:59 Intake Total 3579.25 / 3579.25 122.33 / 122.33 Output Total 650 / 650 Balance 3579.25 / 3579.25 -527.67 / -527.67 Lab / Micro Data 01/27/23 03:15 01/27/23 03:15 Labs: Laboratory Results - last 24 hr 01/26/23 17:10: WBC 14.4 H, RBC 3.71 L, Hgb 9.9 L, Hct 32.2 L, MCV 86.8, MCH 26.7 L, MCHC 30.7 L, RDW Std Deviation 55.2 H, RDW Coeff of Anil 17.5 H, Plt Count 205, MPV 10.5, Immature Gran % (Auto) 0.500, Neut % (Auto) 89.9 H, Lymph % (Auto) 2.2 L, [place] % (Auto) 7.3, Eos % (Auto) 0.0, Baso % (Auto) 0.1, Absolute Neuts (auto) 13.0 H, Absolute Lymphs (auto) 0.31 L, Nucleated RBC % 0, Differential Comment SCANNED, PT 15.8 H, INR 1.3, APTT 30.1, Sodium 140, Potassium 4.1, Chloride 113 H, Carbon Dioxide 16.0 L, Anion Gap 11, BUN 29 H, Creatinine 2.36 H, Estim Creat Clear Calc 38.82, Est GFR (MDRD) Af Amer 37 L, Est GFR (MDRD) Non-Af 31 L, BUN/Creatinine Ratio 12.3, Glucose 117 H, Lactic Acid 5.1 H*, Calcium 8.0 L, Total Bilirubin 3.10 H, AST 248 H, ALT 137 H, Alkaline Phosphatase 177 H, Troponin I High Sens 1499 H*, B-Natriuretic Peptide 928.8 H, Total Protein 6.7, Albumin 2.9 L, Globulin 3.8, Albumin/Globulin Ratio 0.8 L 01/26/23 18:59: Urine Color Yellow, Urine Clarity Cloudy, Urine pH 5.0, Ur Specific [place] 1.010, Urine Protein 100 H, Urine Glucose (UA) Normal, Urine Ketones 5 H, Urine Occult Blood 50 H, Urine Nitrite Negative, Urine Bilirubin Negative, Urine Urobilinogen Normal, Ur Leukocyte Esterase 500 H, Urine RBC 0-5 SEEN, Urine WBC >100 SEEN, Ur Squamous Epith Cells 0 SEEN, Urine Bacteria 2+, Urine Mucus 0 SEEN 01/26/23 19:52: Total Creatine Kinase 143, Troponin I High Sens 1381 H* 01/26/23 21:27: Lactic Acid 2.1 H* 01/27/23 00:05: Troponin I High Sens 1362 H*, MRSA (PCR) Negative 01/27/23 03:15: WBC 10.1, RBC 2.90 L, Hgb 7.9 L, Hct 25.3 L, MCV 87.2, MCH 27.2, MCHC 31.2 L, RDW Std Deviation 55.4 H, RDW Coeff of Anil 17.5 H, Plt Count 170, MPV 10.7, Immature Gran % (Auto) 0.300, Neut % (Auto) 85.7 H, Lymph % (Auto) 3.6 L, [place] % (Auto) 9.5, Eos % (Auto) 0.6, Baso % (Auto) 0.3, Absolute Neuts (auto) 8.7 H, Absolute Lymphs (auto) 0.37 L, Nucleated RBC % 0, Differential Comment SCANNED, Sodium 146 H, Potassium 4.0, Chloride 122 H, Carbon Dioxide 18.0 L, Anion Gap 6, BUN 30 H, Creatinine 1.85 H, Estim Creat Clear Calc 49.52, Est GFR (MDRD) Af Amer 49 L, Est GFR (MDRD) Non-Af 40 L, BUN/Creatinine Ratio 16.2, Glucose 115 H, Calcium 6.6 L, Total Bilirubin 2.50 H, AST 134 H, ALT 92 H, Alkaline Phosphatase 123 H, B-Natriuretic Peptide 810.7 H, Total Protein 5.1 L, Albumin 2.1 L, Globulin 3.0, Albumin/Globulin Ratio 0.7 L 01/27/23 06:55: APTT 96.0 H* Micro: Microbiology 01/27/23 00:05 Urine Catheter - Ga Legionella Antigen - Final 01/27/23 00:05 Urine Catheter - Ga Streptococcus pneumoniae Antigen (M - Final 01/26/23 17:50 Nasal Secretion SARS-CoV-2 Antigen (Rapid) - Final Radiography Diagnostic Testing: Radiology Impression Chest X-Ray 01/26/23 17:25 IMPRESSION: Probable atelectasis or infiltrate in the left lung base. Suggest further evaluation with CT scan. Electronically Signed: López Wong MD at 17:47 EDT , Gallbladder Ultrasound 01/26/23 18:29 IMPRESSION: Small gallstones. Gallbladder wall thickening. No biliary dilatation. Electronically Signed: Miah Barrios MD at 20:02 EDT , Chest/Abdomen/Pelvis CT 01/26/23 19:15 IMPRESSION: 1. Limited by motion and the absence of IV and oral contrast. 2. Cardiomegaly. 3. Probable COPD. Mild atelectasis or scarring in the posterior left lung base. 4. Severe bilateral renal atrophy, stable. Grossly stable and unremarkable right lower quadrant transplant kidney. 5. Evaluation of the GI tract limited, cannot exclude segments of bowel wall thickening. 6. Question cirrhosis with extensive varices. 7. Markedly abnormal bladder, suggest cystoscopy. 8. Cholelithiasis. Thickened gallbladder wall with pericholecystic edema. Electronically Signed: López Wong MD at 19:48 EDT , Physical Exam Const alert Resp normal respiratory effort and no retractions Cardio regular rate, regular rhythm, S1 normal heart sound and S2 normal heart sound GI normal to inspection, nondistended, normoactive bowel sounds, soft to palpation, non-tender and non-distended Assessment & Plan Assessment/Plan (1) Septic shock: PLAN: The patient presented with sepsis due to (UTI) with acute sepsis related organ dysfunction as evidenced by (lactic acidosis; PRISCILLA). SIRS 4/4: Temperature more than 100.9 Fahrenheit (Tmax of 101.4 Fahrenheit in patient's case), Respiratory rate more than 20 (25 in patient case), Heart rate more than 90 (107 patient's case with EKG findings of sinus, tachycardia with rate of 103), WBC more than 12,000 (14,400 patient case) QSOFA 2 Other causes of his sepsis could be biliary disease; cholecystitis; etc. Abdomen/pelvis CT interpreted by radiology as thickened gallbladder wall with pericholecystic edema. Follow-up ultrasound did not confirm cholecystitis. We will get HIDA scan (2) PRISCILLA (acute kidney injury): PLAN: Admission creatinine 2.36. Baseline around 1.5. Improving with IVF. (3) NSTEMI, initial episode of care: PLAN: NSTEMI * Troponins trending down. * [facility] on 12/29: 60-70% stenosis in ostial and proximal ramus. Plan was for medical mgmt * Suspect type II event given septic shock * seen by cardiology. PLAN: Plan Anemia: Hg dropped from 9.9 to 7.9 Monitor Transfuse if Hg less than 7 May be due to hemoconcentration Hyperbilirubinemia * chronic * concern for underlying cirrhosis. * GI consult * contiue rifaxamin and lactulose chronic conditions: * renal x-plant: continue tacrolimus, mycophenolate * afib: continue metoprolol, diltiazem. had not been anticoagulation due to report of GI bleed. * HTN * Depression VTE prophylaxis: scds Charges/Coding Visit Charges Inpatient E&M: 41171 Subs Hosp L2
--- NOTE | 2023-01-27 11:14 | NURSING ---
Kalyan, brother called in and stated I am the POA, my sister is Chandrakant and the standby POA, my mother can have information, but is in her 80s and in [facility] but cannot make any decisions.
--- NOTE | 2023-01-27 12:21 | CASEMGMT ---
Addendum entered by Karen Joyner 01/27/23 12:58: SW spoke with pt's brother Alejo Pinzon who confirms plan is to try to transfer pt to [facility] and would like referral to be sent. Alejo stating information regarding transfering facilities is not to be given to anyone at this time as he will be the person to release the information. Plan: [facility], pending acceptance. AHMET Hernandez Original Note: Social Work SW met with pt sister Chandrakant who states pt is currently at [facility] in assisted living. Chandrakant states she and brother would like pt moved to [facility] nursing unit. Phone call placed to CASSI Obregon and left to confirm plan. Referral to be sent to [facility]. Plan: [facility], pending acceptance and precert AHMET Hernandez
--- NOTE | 2023-01-27 12:21 | PCM.CONS.C ---
Assessment & Plan Assessment/Plan (1) Elevated troponin: PLAN: Likely type II elevation in the setting of sepsis superimposed on underlying coronary artery disease. Coronary angiography last month reported 70% ostial and proximal ramus intermedius lesion. Recommend continuing medical management. Discontinue heparin in view of significant anemia. Please note that hemoglobin has dropped since admission. (2) Coronary artery disease: PLAN: Continue medical management. Recommend stopping aspirin in view of esophageal varices. Start on Plavix. However if hemoglobin continues to drop, then will be constrained to stop antiplatelet agents altogether. (3) Paroxysmal atrial fibrillation: PLAN: ECG presently shows normal sinus rhythm. Patient not a candidate for chronic oral anticoagulation in view of cirrhosis of liver with esophageal varices and significant anemia. (4) Esophageal varices: PLAN: As per gastroenterology. (5) Sepsis: PLAN: As per critical care. (6) PRISCILLA (acute kidney injury): PLAN: As per nephrology/critical care. HPI Consult Data Date of Consult: 01/27/23 HPI Narrative Reason for Consultation: Elevated troponin HPI Narrative: The patient has past medical history significant for vocal cord dysfunction, renal failure status post renal transplantation on immunosuppressants, cirrhosis of liver, hepatic encephalopathy, and DVT. He presented to the emergency room with complaints of fever. Generalized aches and pains. Troponins were checked for the patient. These were noted to be elevated. Patient was admitted to the hospital late last month with complaints of chest pain. He was noted to have paroxysmal atrial fibrillation. His troponins were noted to be markedly elevated at the time. Coronary angiography revealed about 70% ostial and proximal ramus intermedius lesion. Medical therapy was recommended. Patient also has history of esophageal varices. [facility] Medical History Anemia in chronic illness Bladder dysfunction Bronchitis Chronic kidney disease, stage 3b CKD (chronic kidney disease), stage III Congenital nystagmus DVT (deep venous thrombosis) History of DVT (deep vein thrombosis) History of encephalopathy History of pulmonary embolism HTN (hypertension) Immunosuppressed status Mild intellectual disability Myocardial infarct Neurogenic bladder disorder Neutropenia Pancytopenia Pulmonary embolism Severe protein-calorie malnutrition Urinary retention Vocal cord dysfunction Home Medications mycophenolate mofetil 500 mg tablet 500 mg PO BID TRANSPLANT ANTI-REJECTION 07/14/16 [History Last Taken 01/26/23] multivitamin 1 tab PO DAILY SUPPLEMENT 02/13/22 [History Last Taken 01/26/23] lactulose 20 gram/30 mL oral solution 30 ml PO TID CONSTIPATION 06/13/22 [History Last Taken 01/26/23] rifaximin 550 mg tablet (Xifaxan) 550 mg PO BID ANTIBIOTIC 07/16/22 [History Last Taken 01/26/23] sodium bicarbonate 650 mg tablet 1,300 mg PO TID HEARTBURN/INDIGESTION 07/16/22 [History Last Taken 01/26/23] magnesium hydroxide 400 mg/5 mL oral suspension (Dulcolax (magnesium hydroxide)) 30 ml PO Q24H PRN CONSTIPATION 11/01/22 [History Last Taken Unknown] mineral oil (Fleet Mineral Oil enema) 118 ml [place] DAILY PRN CONSTIPATION 11/01/22 [History Last Taken Unknown] mirtazapine 30 mg tablet 30 mg PO QHS DEPRESSION 11/01/22 [History Last Taken 01/25/23] diltiazem HCl 120 mg tablet,extended release 24 hr (Cardizem LA) 120 mg PO DAILY BLOOD PRESSURE #30 tabs 01/01/23 [Rx Last Taken 01/26/23] metoprolol tartrate 25 mg tablet 25 mg PO BID BLOOD PRESSURE #0 tabs 01/01/23 [Rx Last Taken 01/26/23] tacrolimus 0.5 mg capsule, immediate-release 0.5 mg PO BID TRANSPLANT ANTI-REJECTION 01/15/23 [History Last Taken 01/26/23] atorvastatin 40 mg tablet 40 mg PO DAILY CHOLESTEROL 01/26/23 [History Last Taken 01/25/23] Allergy/AdvReac Type Severity Reaction Status Date / Time red dye Allergy PT UNSURE Verified 01/26/23 16:51 OF REACTION Family History Mother Hypertension Father Diabetes Surgical History Kidney transplant recipient Renal transplant recipient S/P arteriovenous (AV) fistula creation Social History household members: none housing: intermediate Smoking Status: Never smoker second hand exposure: No alcohol intake: never substance use type: does not use caffeine: No Physical Exam Narrative Comfortable. No apparent distress. Heart sounds 1 and 2 are noted. No murmurs or rubs noted. Chest clear to auscultation. No ankle edema noted. Risk Stratification Risk Stratification Applicable: No Objective Data Vital Signs: Vital Signs Temp Pulse Resp BP Pulse Ox O2 Del Method 99.6 F H 86 21 H 131/85 H 95 Room Air 01/27/23 08:00 01/27/23 08:00 01/27/23 08:00 01/27/23 08:00 01/27/23 08:00 01/27/23 08:00 Oxygen Delivery Method Room Air Weight: 201 lb 11.567 oz Body Mass Index (BMI) 27.3 Intake & Output: Intake and Output for Last 24 Hours 01/25/23 01/26/23 01/27/23 23:59 23:59 23:59 Intake Total 3579.25 / 3579.25 122.33 / 122.33 Output Total 650 / 650 Balance 3579.25 / 3579.25 -527.67 / -527.67 Lab / Micro Data 01/27/23 03:15 01/27/23 03:15 Labs: Laboratory Results - last 24 hr 01/26/23 17:10: WBC 14.4 H, RBC 3.71 L, Hgb 9.9 L, Hct 32.2 L, MCV 86.8, MCH 26.7 L, MCHC 30.7 L, RDW Std Deviation 55.2 H, RDW Coeff of Anil 17.5 H, Plt Count 205, MPV 10.5, Immature Gran % (Auto) 0.500, Neut % (Auto) 89.9 H, Lymph % (Auto) 2.2 L, [place] % (Auto) 7.3, Eos % (Auto) 0.0, Baso % (Auto) 0.1, Absolute Neuts (auto) 13.0 H, Absolute Lymphs (auto) 0.31 L, Nucleated RBC % 0, Differential Comment SCANNED, PT 15.8 H, INR 1.3, APTT 30.1, Sodium 140, Potassium 4.1, Chloride 113 H, Carbon Dioxide 16.0 L, Anion Gap 11, BUN 29 H, Creatinine 2.36 H, Estim Creat Clear Calc 38.82, Est GFR (MDRD) Af Amer 37 L, Est GFR (MDRD) Non-Af 31 L, BUN/Creatinine Ratio 12.3, Glucose 117 H, Lactic Acid 5.1 H*, Calcium 8.0 L, Total Bilirubin 3.10 H, AST 248 H, ALT 137 H, Alkaline Phosphatase 177 H, Troponin I High Sens 1499 H*, B-Natriuretic Peptide 928.8 H, Total Protein 6.7, Albumin 2.9 L, Globulin 3.8, Albumin/Globulin Ratio 0.8 L 01/26/23 18:59: Urine Color Yellow, Urine Clarity Cloudy, Urine pH 5.0, Ur Specific [place] 1.010, Urine Protein 100 H, Urine Glucose (UA) Normal, Urine Ketones 5 H, Urine Occult Blood 50 H, Urine Nitrite Negative, Urine Bilirubin Negative, Urine Urobilinogen Normal, Ur Leukocyte Esterase 500 H, Urine RBC 0-5 SEEN, Urine WBC >100 SEEN, Ur Squamous Epith Cells 0 SEEN, Urine Bacteria 2+, Urine Mucus 0 SEEN 01/26/23 19:52: Total Creatine Kinase 143, Troponin I High Sens 1381 H* 01/26/23 21:27: Lactic Acid 2.1 H* 01/27/23 00:05: Troponin I High Sens 1362 H*, MRSA (PCR) Negative 01/27/23 03:15: WBC 10.1, RBC 2.90 L, Hgb 7.9 L, Hct 25.3 L, MCV 87.2, MCH 27.2, MCHC 31.2 L, RDW Std Deviation 55.4 H, RDW Coeff of Anil 17.5 H, Plt Count 170, MPV 10.7, Immature Gran % (Auto) 0.300, Neut % (Auto) 85.7 H, Lymph % (Auto) 3.6 L, [place] % (Auto) 9.5, Eos % (Auto) 0.6, Baso % (Auto) 0.3, Absolute Neuts (auto) 8.7 H, Absolute Lymphs (auto) 0.37 L, Nucleated RBC % 0, Differential Comment SCANNED, Sodium 146 H, Potassium 4.0, Chloride 122 H, Carbon Dioxide 18.0 L, Anion Gap 6, BUN 30 H, Creatinine 1.85 H, Estim Creat Clear Calc 49.52, Est GFR (MDRD) Af Amer 49 L, Est GFR (MDRD) Non-Af 40 L, BUN/Creatinine Ratio 16.2, Glucose 115 H, Calcium 6.6 L, Total Bilirubin 2.50 H, AST 134 H, ALT 92 H, Alkaline Phosphatase 123 H, B-Natriuretic Peptide 810.7 H, Total Protein 5.1 L, Albumin 2.1 L, Globulin 3.0, Albumin/Globulin Ratio 0.7 L 01/27/23 06:55: APTT 96.0 H* Micro: Microbiology 01/27/23 00:05 Urine Catheter - Ga Legionella Antigen - Final 01/27/23 00:05 Urine Catheter - Ga Streptococcus pneumoniae Antigen (M - Final 01/26/23 17:50 Nasal Secretion SARS-CoV-2 Antigen (Rapid) - Final Cardiology Labs/Tests 01/26/23 17:10: WBC 14.4 H, RBC 3.71 L, Hgb 9.9 L, Hct 32.2 L, MCV 86.8, MCH 26.7 L, MCHC 30.7 L, Plt Count 205, MPV 10.5, Immature Gran % (Auto) 0.500, Neut % (Auto) 89.9 H, Lymph % (Auto) 2.2 L, [place] % (Auto) 7.3, Eos % (Auto) 0.0, Baso % (Auto) 0.1, Absolute Neuts (auto) 13.0 H, Nucleated RBC % 0, PT 15.8 H, INR 1.3, APTT 30.1, Sodium 140, Potassium 4.1, Chloride 113 H, Carbon Dioxide 16.0 L, Anion Gap 11, BUN 29 H, Creatinine 2.36 H, Est GFR (MDRD) Af Amer 37 L, Est GFR (MDRD) Non-Af 31 L, BUN/Creatinine Ratio 12.3, Glucose 117 H, Lactic Acid 5.1 H*, Calcium 8.0 L, Total Bilirubin 3.10 H, B-Natriuretic Peptide 928.8 H 01/26/23 18:59: Urine Color Yellow, Urine Clarity Cloudy, Urine pH 5.0, Ur Specific [place] 1.010, Urine Protein 100 H, Urine Glucose (UA) Normal, Urine Ketones 5 H, Urine Occult Blood 50 H, Urine Nitrite Negative, Urine Bilirubin Negative, Urine Urobilinogen Normal, Ur Leukocyte Esterase 500 H, Urine RBC 0-5 SEEN, Urine WBC >100 SEEN 01/26/23 21:27: Lactic Acid 2.1 H* 01/27/23 03:15: WBC 10.1, RBC 2.90 L, Hgb 7.9 L, Hct 25.3 L, MCV 87.2, MCH 27.2, MCHC 31.2 L, Plt Count 170, MPV 10.7, Immature Gran % (Auto) 0.300, Neut % (Auto) 85.7 H, Lymph % (Auto) 3.6 L, [place] % (Auto) 9.5, Eos % (Auto) 0.6, Baso % (Auto) 0.3, Absolute Neuts (auto) 8.7 H, Nucleated RBC % 0, Sodium 146 H, Potassium 4.0, Chloride 122 H, Carbon Dioxide 18.0 L, Anion Gap 6, BUN 30 H, Creatinine 1.85 H, Est GFR (MDRD) Af Amer 49 L, Est GFR (MDRD) Non-Af 40 L, BUN/Creatinine Ratio 16.2, Glucose 115 H, Calcium 6.6 L, Total Bilirubin 2.50 H, B-Natriuretic Peptide 810.7 H 01/27/23 06:55: APTT 96.0 H* Rhythm: EKG: ECHO: Stress Test: Cardiac Cath: PCI: CT Surgery: Holter monitor: EPS: PPM: CXR: Chest CT Scan: Radiography Diagnostic Testing: Radiology Impression Chest X-Ray 01/26/23 17:25 IMPRESSION: Probable atelectasis or infiltrate in the left lung base. Suggest further evaluation with CT scan. Electronically Signed: López Wong MD at 17:47 EDT , Gallbladder Ultrasound 01/26/23 18:29 IMPRESSION: Small gallstones. Gallbladder wall thickening. No biliary dilatation. Electronically Signed: Miah Barrios MD at 20:02 EDT , Chest/Abdomen/Pelvis CT 01/26/23 19:15 IMPRESSION: 1. Limited by motion and the absence of IV and oral contrast. 2. Cardiomegaly. 3. Probable COPD. Mild atelectasis or scarring in the posterior left lung base. 4. Severe bilateral renal atrophy, stable. Grossly stable and unremarkable right lower quadrant transplant kidney. 5. Evaluation of the GI tract limited, cannot exclude segments of bowel wall thickening. 6. Question cirrhosis with extensive varices. 7. Markedly abnormal bladder, suggest cystoscopy. 8. Cholelithiasis. Thickened gallbladder wall with pericholecystic edema. Electronically Signed: López Wong MD at 19:48 EDT , Hepatobiliary Scan Nuclear Medicine 01/27/23 05:55 IMPRESSION: Documented filling of the gallbladder without evidence of acute cholecystitis or biliary obstruction. A gallbladder ejection fraction calculated to be less than 35% following the administration of Cholecystokinin makes the probability of functional hepatobiliary disease (gallbladder and/or sphincter of Oddi dyskinesia) and/or organic hepatobiliary disease (chronic acalculous cholecystitis and/or cystic duct syndrome) to be high. (Alexander Rendon et al, Journal of Nuclear Medicine 32:1695, 1991). Electronically Signed: Contreras Nolasco MD ([place]) at 12:14 EDT ,
[2023-01-27] MEDS: dilTIAZem CD 120 MG Capsule PO (12:49)
[2023-01-27] MEDS: Multivitamins,Therapeutic Tablet 1 TABLET PO (12:49)
--- NOTE | 2023-01-27 13:08 | CASEMGMT ---
Discharge Planning Referral sent to [facility] via [facility]. Joanna Lee, Discharge Planning Asst.
[2023-01-27] MEDS: Piperacil/Tazobactam 3.375 GM in 0.9% Normal Saline (50mL MB+) 50 ML IV ×2 (14:06→20:44)
--- NOTE | 2023-01-27 14:37 | CASEMGMT ---
Discharge Planning Patient has been accepted by [facility]. SW updated. Joanna Lee, Discharge Planning Asst.
--- NOTE | 2023-01-27 21:39 | EX.PCM.CON.G ---
HPI Consult Data Date of Consult: 01/27/23 HPI Narrative Reason for Consultation: Cirrhosis HPI Narrative: ROOSEVELT GARCIA, is a 57 M who presents with nausea and vomiting. He has a history of MDD, atonic bladder with self cath and multiple UTIs in the past and CKD stage IIIb in the setting of history of kidney transplant who presented to [facility] 01/26/2023 with some general complaints of abdominal and chest pain and weakness. He has a history of recurrent metabolic encephalopathy and hyperammonemia occasioning multiple admissions in the past several months. As part of his work-up CT imaging of the abdomen pelvis was obtained without IV or oral contrast. It displayed possible cirrhosis. He had previous imaging that displayed intraabdominal ascites. He had viral studies which were negative for Chronic Hepatitis B and C. No other work up has been done and he has not undergone a liver biopsy. No family at bedside and patient somewhat poor and inconsistent historian so history primarily obtained per report. [facility] and began complaining of what was considered chest pain. In the ED he had an elevated BMP and a troponin. with no previous values available, troponin negative, UA with nitrite and 1+ bacteria but no leuk esterase or white blood cells and no urinary symptoms. WBC 10.1, Hgb 7.9 L, Hct 25.3 L, MCV 87.2, Plt Count 170, Sodium 146 H, Potassium 4.0, Chloride 122 H, Carbon Dioxide 18.0 L, Anion Gap 6, BUN 30 H, Creatinine 1.85 H,Total Bilirubin 2.50 H, AST 134 H, ALT 92 H, Alkaline Phosphatase 123 H [facility] Medical History (Updated 01/27/23 @ 22:[address] Giang Friend, DO) Anemia in chronic illness Bladder dysfunction Bronchitis Chronic kidney disease, stage 3b CKD (chronic kidney disease), stage III Congenital nystagmus DVT (deep venous thrombosis) History of DVT (deep vein thrombosis) History of encephalopathy History of pulmonary embolism HTN (hypertension) Immunosuppressed status Mild intellectual disability Myocardial infarct Neurogenic bladder disorder Neutropenia Pancytopenia Pulmonary embolism Severe protein-calorie malnutrition Urinary retention Vocal cord dysfunction Home Medications mycophenolate mofetil 500 mg tablet 500 mg PO BID TRANSPLANT ANTI-REJECTION 07/14/16 [History Last Taken 01/26/23] multivitamin 1 tab PO DAILY SUPPLEMENT 02/13/22 [History Last Taken 01/26/23] lactulose 20 gram/30 mL oral solution 30 ml PO TID CONSTIPATION 06/13/22 [History Last Taken 01/26/23] rifaximin 550 mg tablet (Xifaxan) 550 mg PO BID ANTIBIOTIC 07/16/22 [History Last Taken 01/26/23] sodium bicarbonate 650 mg tablet 1,300 mg PO TID HEARTBURN/INDIGESTION 07/16/22 [History Last Taken 01/26/23] magnesium hydroxide 400 mg/5 mL oral suspension (Dulcolax (magnesium hydroxide)) 30 ml PO Q24H PRN CONSTIPATION 11/01/22 [History Last Taken Unknown] mineral oil (Fleet Mineral Oil enema) 118 ml [place] DAILY PRN CONSTIPATION 11/01/22 [History Last Taken Unknown] mirtazapine 30 mg tablet 30 mg PO QHS DEPRESSION 11/01/22 [History Last Taken 01/25/23] diltiazem HCl 120 mg tablet,extended release 24 hr (Cardizem LA) 120 mg PO DAILY BLOOD PRESSURE #30 tabs 01/01/23 [Rx Last Taken 01/26/23] metoprolol tartrate 25 mg tablet 25 mg PO BID BLOOD PRESSURE #0 tabs 01/01/23 [Rx Last Taken 01/26/23] tacrolimus 0.5 mg capsule, immediate-release 0.5 mg PO BID TRANSPLANT ANTI-REJECTION 01/15/23 [History Last Taken 01/26/23] atorvastatin 40 mg tablet 40 mg PO DAILY CHOLESTEROL 01/26/23 [History Last Taken 01/25/23] Allergy/AdvReac Type Severity Reaction Status Date / Time red dye Allergy PT UNSURE Verified 01/26/23 16:51 OF REACTION Family History Mother Hypertension Father Diabetes Surgical History Kidney transplant recipient Renal transplant recipient S/P arteriovenous (AV) fistula creation Social History household members: none housing: longterm Smoking Status: Never smoker second hand exposure: No alcohol intake: never substance use type: does not use caffeine: No ROS ROS Narrative General: Denies fever/chills HENT: Denies headache, denies stuffy nose, reports he feels it is painful to talk EYES: Denies changes in vision Resp: Denies cough, denies shortness of breath Cardiac: Has abdominal pain that radiates up to his chest GI: Abdominal pain and he is unsure when he had his last bowel movement, denies nausea/vomiting : Denies changes in urination Extremity: No changes to his peripheral edema MSK: Possibly some generalized weakness Neuro: Denies any numbness/tingling Heme: Denies any bleeding or bruising Skin: Denies rashes Psychiatric: No complaints voiced Physical Exam Narrative Comfortable. No apparent distress. Heart sounds 1 and 2 are noted. No murmurs or rubs noted. Chest clear to auscultation. No ankle edema noted. Lab / Micro Data 01/27/23 03:15 01/27/23 03:15 Labs: Laboratory Results - last 24 hr 01/26/23 19:52: Total Creatine Kinase 143 01/26/23 21:27: Lactic Acid 2.1 H* 01/27/23 00:05: Troponin I High Sens 1362 H*, MRSA (PCR) Negative 01/27/23 03:15: WBC 10.1, RBC 2.90 L, Hgb 7.9 L, Hct 25.3 L, MCV 87.2, MCH 27.2, MCHC 31.2 L, RDW Std Deviation 55.4 H, RDW Coeff of Anil 17.5 H, Plt Count 170, MPV 10.7, Immature Gran % (Auto) 0.300, Neut % (Auto) 85.7 H, Lymph % (Auto) 3.6 L, [place] % (Auto) 9.5, Eos % (Auto) 0.6, Baso % (Auto) 0.3, Absolute Neuts (auto) 8.7 H, Absolute Lymphs (auto) 0.37 L, Nucleated RBC % 0, Differential Comment SCANNED, Sodium 146 H, Potassium 4.0, Chloride 122 H, Carbon Dioxide 18.0 L, Anion Gap 6, BUN 30 H, Creatinine 1.85 H, Estim Creat Clear Calc 49.52, Est GFR (MDRD) Af Amer 49 L, Est GFR (MDRD) Non-Af 40 L, BUN/Creatinine Ratio 16.2, Glucose 115 H, Calcium 6.6 L, Total Bilirubin 2.50 H, AST 134 H, ALT 92 H, Alkaline Phosphatase 123 H, B-Natriuretic Peptide 810.7 H, Total Protein 5.1 L, Albumin 2.1 L, Globulin 3.0, Albumin/Globulin Ratio 0.7 L 01/27/23 06:55: APTT 96.0 H* Micro: Microbiology 01/26/23 18:59 Urine, Catheterized Urine Culture - Preliminary GNR lactose patient relations liaison 01/27/23 00:05 Urine Catheter - Ga Legionella Antigen - Final 01/27/23 00:05 Urine Catheter - Ga Streptococcus pneumoniae Antigen (M - Final 01/26/23 17:50 Nasal Secretion SARS-CoV-2 Antigen (Rapid) - Final Radiology Impression Echocardiogram 01/27/23 05:55 Interpretation Summary The estimated ejection fraction is 55 %. Diastolic function is indeterminate. Mild (1+) mitral valve insufficiency. Mild (1+) tricuspid valve insufficiency. Right ventricular systolic pressure estimated to be 53 mmHg. The left atrium is severely enlarged. The right atrium is moderately enlarged. Ordering Physician: Raúl Calvillo Referring Physician: Mike Bella Performed By: Asia Kinney, [facility] Hepatobiliary Scan Nuclear Medicine 01/27/23 05:55 IMPRESSION: Documented filling of the gallbladder without evidence of acute cholecystitis or biliary obstruction. A gallbladder ejection fraction calculated to be less than 35% following the administration of Cholecystokinin makes the probability of functional hepatobiliary disease (gallbladder and/or sphincter of Oddi dyskinesia) and/or organic hepatobiliary disease (chronic acalculous cholecystitis and/or cystic duct syndrome) to be high. (Alexander Rendon et al, Journal of Nuclear Medicine 32:1695, 1991). Electronically Signed: Contreras Nolasco MD ([place]) at 12:14 EDT Reading Location ID and State: [address] [place] [address] , Service support , Assessment & Plan Assessment/Plan (1) History of encephalopathy: (2) Esophageal varices: QUALIFIERS: Esophageal varices type: idiopathic Esophageal varices bleeding: without bleeding Qualified Code(s): I85.00 - Esophageal varices without bleeding (3) Cirrhosis: QUALIFIERS: Hepatic cirrhosis type: other cirrhosis Qualified Code(s): K74.69 - Other cirrhosis of liver PLAN: Plan 57-year-old 57-year-old gentleman who I saw in the past for hyperammonemia of unknown cause. Patient had imaging at that time did not show any signs of cirrhosis. This was a year ago back in 04/2022. Since then, he's had an MRI and a recent CT scan that showed possible cirrhosis. H he had ultrasounds that did not show cirrhosis, and he recently had a Hida scan that showed at homogeneous liver without increase uptake in the liver, not consistent with cirrhosis. He would need a liver, biopsy, work out for autoimmune liver disease, such as alpha, one, any trips in disease, hemachromatosis, sarcoidosis, amyloidosis, all calvert, hepatitis, permeability, cirrhosis, or primary sclerosing cholangitis. He has been on tacrolimus for a long time which has been associated with mild leave this function causing portal, hypertension in a select few people that have underlying pre-existing liver disease from another source, such as fatty liver disease. His complete metabolic profile does show an acute on chronic cholestatic hepatitis with mild jaundice possibly secondary to decompensated liver disease. The leading cause this time would be intrahepatic cholestasis from sepsis. When medically stable, he will likely need an EGD to see if he has esophageal varices, Portal gastropathy, GAVE and other signs and symptoms of chronic liver disease in the upper G.I. tract. Also, recommend to check in ammonia level and possibly perform a diagnostic paracentesis. This will enable us to get a SAAG gradient to see if the fluid in his abdomen is secondary to the portal hypertension associated with cirrhosis. Charges/Coding Visit Charges Inpatient E&M: 03128 Init Hosp L3
[2023-01-28] VITALS (12 sets, daily range): BP systolic 124–142; BP diastolic 71–80; PULSE 70–80; RESP 16–24; TEMP 36.6–37.6; O2SAT 93–99; BMI 27.1
[2023-01-28 00:15] LABS: Ferritin 43 ng/mL (26-388); Iron 19 ug/dL (65-175); Iron Binding Capacity,Total 354 ug/dL (250-450); PERCENT IRON SATURATION 5.4 % (15.0-55.0)
[2023-01-28] MEDS: 0.9% Normal Saline (1000mL) 1,000 ML 75 ML IV ×2 (01:55→17:39)
[2023-01-28] MEDS: Piperacil/Tazobactam 3.375 GM in 0.9% Normal Saline (50mL MB+) 50 ML IV ×3 (05:01→22:29)
[2023-01-28] MEDS: Sodium Bicarbonate 650 MG Tablet 1300 MG PO ×3 (05:01→21:05)
[2023-01-28] MEDS: Lactulose 20 GM/30 ML UDC PO ×3 (05:01→21:03)
[2023-01-28 05:07] LABS: Absolute Lymphocyte Count 0.59 X10^3/uL (0.83-4.51); Absolute Neutrophil Count 5.3 X10^3/uL (2.0-7.7); Basophil# 0.03 X10^3/uL; Basophil% 0.4 % (0-1); Eosinophils% 1.4 % (0-5); Hematocrit 22.6 % (40-54); Hemoglobin 6.8 g/dL (13.0-16.5); Lymphocyte # 0.59 X10^3/ul (0.83-4.51); Lymphocyte % 8.5 % (19-41); Mean Corp Hgb Conc 30.1 g/dL (32-36); Mean Corpuscular Hgb 26.6 pg (27.0-32.0); Mean Corpuscular Volume 88.3 fL (80-94); Mean Platelet Vol. 11.3 fl (6.2-12.0); Monocyte# 0.87 X10^3/uL; Monocyte% 12.6 % (0-10); NRBC Flagged by Analyzer 0 % (0-5); Neutrophil # 5.28 X10^3/uL (2.7-7.7); Neutrophil % 76.5 % (47-70); POSITIVE DIFFERENTIAL YES; Platelet Count 171 K/mm3 (150-450); RBC Distribution Width CV 17.9 % (11.6-14.6); RBC Distribution Width SD 57.7 fl (35.1-43.9); Red Blood Count 2.56 M/mm3 (4.6-6.2); White Blood Count 6.9 K/mm3 (4.4-11.0)
[2023-01-28 05:11] LABS: Differential Indicated SCAN CRITERIA MET
[2023-01-28 05:25] LABS: ALB/GLOB Ratio 0.7 RATIO (0.9-2.4); AST(SGOT) 104 U/L (15-37); Alanine Aminotransfer ALT/SGPT 78 U/L (16-61); Albumin, Serum 2.1 g/dL (3.2-5.0); Alkaline Phosphatase 122 U/L (45-117); Anion Gap 6 (5-15); BUN 23 mg/dL (7-18); BUN/Creat Ratio 12.7 RATIO (10-20); Calcium,Total 6.8 mg/dL (8.5-10.1); Chloride 122 mmol/L (98-107); Creatinine, Serum 1.81 mg/dL (0.70-1.30); EST Glomerular Filtration Rate 42 mL/min (>60); Est Glom Filt Rate - Afr Amer 50 mL/min (>60); Estimated Creatinine Clearance 50.61 ml/min; Globulin 3.2 g/dL (2.2-4.2); Glucose 108 mg/dL (74-106); Potassium 3.9 mmol/L (3.5-5.1); Protein, Total 5.3 g/dL (6.4-8.2); Sodium Level 146 mmol/L (136-145)
[2023-01-28 06:01] LABS: Differential Comment SCANNED
--- NOTE | 2023-01-28 07:45 | PCM.PN.HOSP ---
Reason for Visit Reason for Visit: Diagnoses Sepsis, unspecified organism (01/26/23) Non-ST elevation (NSTEMI) myocardial infarction (01/26/23) Atherosclerotic heart disease of [place] coronary artery without angina pectoris (01/26/23) Paroxysmal atrial fibrillation (01/26/23) Esophageal varices without bleeding (01/26/23) Other cirrhosis of liver (01/26/23) Cholecystitis, unspecified (01/26/23) Acute kidney failure, unspecified (01/26/23) Chronic kidney disease, stage 3a (01/26/23) Severe sepsis with septic shock (01/26/23) Other specified abnormalities of plasma proteins (01/26/23) Personal history of other diseases of the nervous system and sense organs (01/26/23) Subjective Subjective Has chest pain when he talks. Objective Data Objective Data Vital Signs: Vital Signs Temp Pulse Resp BP Pulse Ox O2 Del Method 37.6 C H 80 21 H 126/71 H 93 Room Air 01/28/23 04:00 01/28/23 04:00 01/28/23 04:00 01/28/23 04:00 01/28/23 04:00 01/28/23 06:00 Oxygen Delivery Method Room Air Weight: 90.7 kg Body Mass Index (BMI) 27.1 Intake & Output: Intake and Output for Last 24 Hours 01/26/23 01/27/23 01/28/23 23:59 23:59 23:59 Intake Total 3579.25 / 3579.25 2190.00 / 2190.00 936.25 / 936.25 Output Total 1800 / 1800 700 / 700 Balance 3579.25 / 3579.25 390.00 / 390.00 236.25 / 236.25 Lab / Micro Data 01/28/23 05:00 01/28/23 05:00 Labs: Laboratory Results - last 24 hr 01/27/23 23:30: Iron 19 L, TIBC 354, Iron Saturation 5.4 L, Ferritin 43 01/28/23 05:00: WBC 6.9, RBC 2.56 L, Hgb 6.8 L, Hct 22.6 L, MCV 88.3, MCH 26.6 L, MCHC 30.1 L, RDW Std Deviation 57.7 H, RDW Coeff of Anil 17.9 H, Plt Count 171, MPV 11.3, Immature Gran % (Auto) 0.600, Neut % (Auto) 76.5 H, Lymph % (Auto) 8.5 L, [place] % (Auto) 12.6 H, Eos % (Auto) 1.4, Baso % (Auto) 0.4, Absolute Neuts (auto) 5.3, Absolute Lymphs (auto) 0.59 L, Nucleated RBC % 0, Differential Comment SCANNED, Sodium 146 H, Potassium 3.9, Chloride 122 H, Carbon Dioxide 18.0 L, Anion Gap 6, BUN 23 H, Creatinine 1.81 H, Estim Creat Clear Calc 50.61, Est GFR (MDRD) Af Amer 50 L, Est GFR (MDRD) Non-Af 42 L, BUN/Creatinine Ratio 12.7, Glucose 108 H, Calcium 6.8 L, Total Bilirubin 1.60 H, AST 104 H, ALT 78 H, Alkaline Phosphatase 122 H, Total Protein 5.3 L, Albumin 2.1 L, Globulin 3.2, Albumin/Globulin Ratio 0.7 L Micro: Microbiology 01/26/23 18:59 Urine, Catheterized Urine Culture - Preliminary GNR lactose transactional attorney 01/27/23 00:05 Urine Catheter - Ga Legionella Antigen - Final 01/27/23 00:05 Urine Catheter - Ga Streptococcus pneumoniae Antigen (M - Final 01/26/23 17:50 Nasal Secretion SARS-CoV-2 Antigen (Rapid) - Final Radiography Diagnostic Testing: Radiology Impression Echocardiogram 01/27/23 05:55 Interpretation Summary The estimated ejection fraction is 55 %. Diastolic function is indeterminate. Mild (1+) mitral valve insufficiency. Mild (1+) tricuspid valve insufficiency. Right ventricular systolic pressure estimated to be 53 mmHg. The left atrium is severely enlarged. The right atrium is moderately enlarged. Ordering Physician: Raúl Calvillo Referring Physician: Mike Bella Performed By: Asia Kinney RDCS Hepatobiliary Scan Nuclear Medicine 01/27/23 05:55 IMPRESSION: Documented filling of the gallbladder without evidence of acute cholecystitis or biliary obstruction. A gallbladder ejection fraction calculated to be less than 35% following the administration of Cholecystokinin makes the probability of functional hepatobiliary disease (gallbladder and/or sphincter of Oddi dyskinesia) and/or organic hepatobiliary disease (chronic acalculous cholecystitis and/or cystic duct syndrome) to be high. (Alexander Bowers al, Journal of Nuclear Medicine 32:1695, 1991). Electronically Signed: Contreras Nolasco MD ([place]) at 12:14 EDT , Physical Exam Const alert and no apparent distress Resp normal respiratory effort, no retractions, no use of accessory muscles and clear to auscultation bilaterally Cardio regular rate, regular rhythm, S1 normal heart sound and S2 normal heart sound Cardio Narrative: reproducible chest pain anteriorly. GI normal to inspection, nondistended, normoactive bowel sounds and soft to palpation Assessment & Plan Assessment/Plan (1) Septic shock: PLAN: The patient presented with sepsis due to (UTI) with acute sepsis related organ dysfunction as evidenced by (lactic acidosis; PRISCILLA). SIRS 4/4: Temperature more than 100.9 Fahrenheit (Tmax of 101.4 Fahrenheit in patient's case), Respiratory rate more than 20 (25 in patient case), Heart rate more than 90 (107 patient's case with EKG findings of sinus, tachycardia with rate of 103), WBC more than 12,000 (14,400 patient case) QSOFA 2 Other causes of his sepsis could be biliary disease; cholecystitis; etc. Abdomen/pelvis CT interpreted by radiology as thickened gallbladder wall with pericholecystic edema. Follow-up ultrasound did not confirm cholecystitis. We will get HIDA scan (2) PRISCILLA (acute kidney injury): PLAN: Admission creatinine 2.36. Baseline around 1.5. Improving with IVF. (3) NSTEMI, initial episode of care: PLAN: NSTEMI Troponins trending down. [facility] on 12/29: 60-70% stenosis in ostial and proximal ramus. Plan was for medical mgmt Suspect type II event given septic shock seen by cardiology. (4) Acute blood loss anemia: PLAN: Hg dropped from 9.9 to 7.9, 6.8 Monitor Transfuse 1 unit PLAN: Plan Hyperbilirubinemia chronic concern for underlying cirrhosis. GI consult contiue rifaxamin and lactulose chronic conditions: renal x-plant: continue tacrolimus, mycophenolate afib: continue metoprolol, diltiazem. had not been anticoagulation due to report of GI bleed. HTN Depression VTE prophylaxis: scds Charges/Coding Visit Charges Inpatient E&M: 53957 Subs Hosp L2
[2023-01-28] MEDS: dilTIAZem CD 120 MG Capsule PO (08:08)
[2023-01-28] MEDS: rifAXIMin 550 MG Tablet PO ×2 (08:08→21:02)
[2023-01-28] MEDS: Metoprolol Tartrate 25 MG Tablet PO ×2 (08:09→21:03)
[2023-01-28] MEDS: Clopidogrel Bisulfate 75 MG Tablet PO (08:09)
[2023-01-28] MEDS: Multivitamins,Therapeutic Tablet 1 TABLET PO (08:09)
[2023-01-28] MEDS: Mycophenolate Mofetil 250 MG Capsule 500 MG PO ×2 (08:10→21:04)
[2023-01-28] MEDS: Tacrolimus 0.5 MG Capsule PO ×2 (08:10→21:02)
--- NOTE | 2023-01-28 11:44 | CASEMGMT ---
Social Work [facility] is able to accept pt. Phone call to brother Alejo Pinzon and updated him that [facility] can accept. Alejo stating he has not yet decided if pt will go to [facility] or return to the [facility]. Per physician, pt is not yet medically ready for discharge. Alejo stating information regarding transferring facilities is not to be given to anyone at this time as he will be the person to release the information. AHMET Hernandez
[2023-01-28 14:09] LABS: CMV Acute Antibody IgM < 30.0 AU/mL (0.0-29.9); EBV Acute VCA IgM < 36.0 U/mL (0.0-35.9); EBV Early Antigen IgG <9.0 U/mL (0.0-8.9)
[2023-01-28 16:59] LABS: Bedside Glucose 93 mg/dL (74-106)
[2023-01-28] MEDS: Mirtazapine 30 MG Tablet PO (21:04)
[2023-01-29] VITALS (7 sets, daily range): BP systolic 113–144; BP diastolic 65–83; PULSE 73–80; RESP 16–20; TEMP 36.6–37.1; O2SAT 93–100; BMI 27.7
[2023-01-29 03:20] LABS: Absolute Lymphocyte Count 0.64 X10^3/uL (0.83-4.51); Absolute Neutrophil Count 3.7 X10^3/uL (2.0-7.7); Basophil# 0.03 X10^3/uL; Basophil% 0.6 % (0-1); Eosinophil# 0.31 X10^3/uL; Eosinophils% 5.7 % (0-5); Hematocrit 28.3 % (40-54); Hemoglobin 8.8 g/dL (13.0-16.5); Lymphocyte # 0.64 X10^3/ul (0.83-4.51); Lymphocyte % 11.7 % (19-41); Mean Corp Hgb Conc 31.1 g/dL (32-36); Mean Corpuscular Hgb 26.8 pg (27.0-32.0); Mean Corpuscular Volume 86.3 fL (80-94); Mean Platelet Vol. 11.2 fl (6.2-12.0); Monocyte# 0.77 X10^3/uL; Monocyte% 14.1 % (0-10); NRBC Flagged by Analyzer 0 % (0-5); Neutrophil # 3.67 X10^3/uL (2.7-7.7); Neutrophil % 67.3 % (47-70); Platelet Count 165 K/mm3 (150-450); RBC Distribution Width CV 17.6 % (11.6-14.6); RBC Distribution Width SD 54.8 fl (35.1-43.9); Red Blood Count 3.28 M/mm3 (4.6-6.2); White Blood Count 5.5 K/mm3 (4.4-11.0)
[2023-01-29 03:38] LABS: Anion Gap 5 (5-15); BUN 17 mg/dL (7-18); BUN/Creat Ratio 10.7 RATIO (10-20); Chloride 121 mmol/L (98-107); Creatinine, Serum 1.59 mg/dL (0.70-1.30); EST Glomerular Filtration Rate 48 mL/min (>60); Est Glom Filt Rate - Afr Amer 58 mL/min (>60); Estimated Creatinine Clearance 57.62 ml/min; Glucose 107 mg/dL (74-106); Potassium 4.2 mmol/L (3.5-5.1); Sodium Level 145 mmol/L (136-145)
[2023-01-29] MEDS: 0.9% Saline Lock 10 ML Syringe IV (05:34)
[2023-01-29] MEDS: Sodium Bicarbonate 650 MG Tablet 1300 MG PO ×3 (05:35→21:14)
[2023-01-29] MEDS: 0.9% Normal Saline (1000mL) 1,000 ML 75 ML IV ×2 (05:35→21:17)
[2023-01-29] MEDS: Piperacil/Tazobactam 3.375 GM in 0.9% Normal Saline (50mL MB+) 50 ML IV ×3 (05:35→21:18)
[2023-01-29] MEDS: Lactulose 20 GM/30 ML UDC PO ×3 (05:35→21:14)
--- NOTE | 2023-01-29 08:24 | PN.HOSP_ITS ---
Subjective Subjective Feels well. Recognizes that he needs additional therapy. Objective Data Objective Data Vital Signs: Vital Signs Temp Pulse Resp BP Pulse Ox O2 Del Method 37.1 C 73 20 H 113/65 93 Room Air 01/29/23 02:00 01/29/23 02:00 01/29/23 02:00 01/29/23 02:00 01/29/23 02:00 01/29/23 02:00 Oxygen Delivery Method Room Air Weight: 92.7 kg Body Mass Index (BMI) 27.7 Intake & Output: Intake and Output for Last 24 Hours 01/27/23 01/28/23 01/29/23 23:59 23:59 23:59 Intake Total 2190.00 / 2190.00 2336.25 / 2336.25 945 / 945 Output Total 1800 / 1800 2200 / 2700 1100 / 1100 Balance 390.00 / 390.00 136.25 / -363.75 -155 / -155 Lab / Micro Data 01/29/23 03:10 01/29/23 03:10 Labs: Laboratory Results - last 24 hr 01/27/23 03:15: CMV IgM Ab < 30.0, EBV Capsid Ag IgM Ab < 36.0, EBV Early Antigen IgG <9.0 01/28/23 10:00: Blood Type A POSITIVE, Antibody Screen NEGATIVE, Crossmatch See Detail 01/28/23 16:38: POC Glucose 93 01/29/23 03:10: WBC 5.5, RBC 3.28 L, Hgb 8.8 L, Hct 28.3 L, MCV 86.3, MCH 26.8 L , MCHC 31.1 L, RDW Std Deviation 54.8 H, RDW Coeff of Anil 17.6 H, Plt Count 165, MPV 11.2, Immature Gran % (Auto) 0.600, Neut % (Auto) 67.3, Lymph % (Auto) 11.7 L, [place] % (Auto) 14.1 H, Eos % (Auto) 5.7 H, Baso % (Auto) 0.6, Absolute Neuts (auto) 3.7, Absolute Lymphs (auto) 0.64 L, Nucleated RBC % 0, Sodium 145, Potassium 4.2, Chloride 121 H, Carbon Dioxide 19.0 L, Anion Gap 5, BUN 17, Creatinine 1.59 H, Estim Creat Clear Calc 57.62, Est GFR (MDRD) Af Amer 58 L, Est GFR (MDRD) Non-Af 48 L, BUN/Creatinine Ratio 10.7, Glucose 107 H, Calcium 7.0 L Micro: Microbiology 01/26/23 18:59 Urine, Catheterized Urine Culture - Final Klebsiella pneumoniae sp pneum 01/27/23 00:05 Urine Catheter - Ga Legionella Antigen - Final 01/27/23 00:05 Urine Catheter - Ga Streptococcus pneumoniae Antigen (M - Final 01/26/23 17:50 Nasal Secretion SARS-CoV-2 Antigen (Rapid) - Final Physical Exam Const alert and no apparent distress HEENT head/scalp atraumatic and moist oral mucous membranes Resp normal respiratory effort, no retractions, no use of accessory muscles and clear to auscultation bilaterally Cardio regular rate, regular rhythm, S1 normal heart sound and S2 normal heart sound GI normal to inspection, nondistended, normoactive bowel sounds Extremity 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 Assessment & Plan Assessment/Plan (1) Septic shock: PLAN: The patient presented with sepsis due to (UTI) with acute sepsis related organ dysfunction as evidenced by (lactic acidosis; PRISCILLA). SIRS 4/4: Temperature more than 100.9 Fahrenheit (Tmax of 101.4 Fahrenheit in patient's case), Respiratory rate more than 20 (25 in patient case), Heart rate more than 90 (107 patient's case with EKG findings of sinus, tachycardia with rate of 103), WBC more than 12,000 (14,400 patient case) QSOFA 2 Other causes of his sepsis could be biliary disease; cholecystitis; etc. Abdomen/pelvis CT interpreted by radiology as thickened gallbladder wall with pericholecystic edema. Follow-up ultrasound did not confirm cholecystitis. We will get HIDA scan (2) PRISCILLA (acute kidney injury): PLAN: Admission creatinine 2.36. Baseline around 1.5. Improving with IVF. (3) NSTEMI, initial episode of care: PLAN: NSTEMI * Troponins trending down. * [facility] on 12/29: 60-70% stenosis in ostial and proximal ramus. Plan was for medical mgmt * Suspect type II event given septic shock * seen by cardiology. (4) Acute blood loss anemia: PLAN: Hg dropped from 9.9 to 7.9, 6.8 Monitor Transfuse 1 unit, Hg improved to 8.8. Will discuss with GI in regards to any inpatient plans for endoscopy. (5) Urinary tract infection: QUALIFIERS: Urinary tract infection type: catheter-associated UTI Indwelling urinary catheter type: indwelling urethral catheter Encounter type: initial encounter Qualified Code(s): T83.511A - Infection and inflammatory reaction due to indwelling urethral catheter, initial encounter; N39.0 - Urinary tract infection, site not specified PLAN: Secondary to Klebsiella. Klebsiella sensitive to all but ampicillin. Continue with levofloxacin PLAN: Plan Hyperbilirubinemia * chronic * concern for underlying cirrhosis. * GI consult * contiue rifaxamin and lactulose chronic conditions: * renal x-plant: continue tacrolimus, mycophenolate * afib: continue metoprolol, diltiazem. had not been anticoagulation due to report of GI bleed. * HTN * Depression VTE prophylaxis: scds Discussed with the patient's brother Alejo at [phone]. He had a myriad of questions and concerns. He had a myriad of concerns ranging from what can be done regards to his GI evaluation. He was also concerned that the jail was not informed of when the patient was going to be sent sent to the jail. I told him that likely discharge over the weekend pending GI evaluation. If patient is discharged would likely be tomorrow. He asked physically what time would be told him that prior to be in the afternoon when he was finally discharged. He asked about when some who would be the one to notify him when the patient is discharged. I told him that I would notify him. He went on to state that the jail did not know all the details of what it was going on his hospitalization. I asked him why that was an issue and he is was rather flabbergasted by that questioning. He stated that would be important but he did not elaborate further in regards to why that is important. I did state that he that information would be provided prior to the patient being discharged. Greater than 55 minutes of which greater than for present time was evaluate the patient and discussing the patient's issues with the patient but also spending much of the time discussing with his brother Alejo Charges/Coding Visit Charges Inpatient E&M: 41102 Subs Hosp L3
[2023-01-29] MEDS: Multivitamins,Therapeutic Tablet 1 TABLET PO (08:53)
[2023-01-29] MEDS: dilTIAZem CD 120 MG Capsule PO (08:53)
[2023-01-29] MEDS: Mycophenolate Mofetil 250 MG Capsule 500 MG PO ×2 (08:53→21:14)
[2023-01-29] MEDS: Tacrolimus 0.5 MG Capsule PO ×2 (08:54→21:14)
[2023-01-29] MEDS: rifAXIMin 550 MG Tablet PO ×2 (08:54→21:14)
[2023-01-29] MEDS: Metoprolol Tartrate 25 MG Tablet PO ×2 (08:54→21:14)
[2023-01-29] MEDS: Clopidogrel Bisulfate 75 MG Tablet PO (08:57)
--- NOTE | 2023-01-29 10:18 | CASEMGMT ---
Social Work SW spoke w/pt's brother/KARIS Dhillon about the discharge plan. He had stated to SW yesterday was not yet giving the okay for pt to go to [facility]. Alejo states he did not think pt was ready for discharge yet, just had a transfusion yet, and has not spoken with the doctor about what is going on w/pt. Alejo is not ready to make a decision about SNF, he states he thought they had all weekend and that pt would not be ready until the start of the week. SW explained that as per physician pt may be ready this weekend. SW explained can reach out to the doctor to see if he can give Alejo a call. Alejo not seeming to be willing to make a decision about SNF until he speaks w/the physician. He also asked about pt seeing a GI doctor, and about getting a colonoscopy while here as it would be very difficult for pt to come in as an outpt to get a colonoscopy. SW explained that these are all good questions for the doctor. SW explained will ask the doctor to call him and can follow up w/him later today. SW did text physician and asked if he can call pt's brother. SW will continue to follow. MARTHA Seymour
--- NOTE | 2023-01-29 13:27 | NURSING ---
report called to 3rd floor for transfer to room 324 transferred per chair with belongings
--- NOTE | 2023-01-29 13:33 | NURSING ---
report called to med-surg 3 for transfer to room 324, sister & brother notified of room change
--- NOTE | 2023-01-29 14:50 | CHAPLAIN ---
Type of Pastoral Visit _x__ Initial Visit ___ Follow-up Visit ___ On-call Visit ___ General Patient Visit ___ Spiritual Assessment ___ Family Conference ___ Bereavement ___ Rapid Response ___ Code Blue ___ Other (describe below) Pastoral Care Referral From _x__ Patient ___ Family ___ Nurse _x__ Physician ___ Fiscal Accounting Clerk ___ Covered Buckle Assembler ___ Other (describe below) Sacrament/Intervention _x__ Active listening ___ Anointing ___ Jainism ___ Bereavement ___ Communion ___ [place]ma exploration ___ ___ Life review _x__ Prayer ___ Reconciliation ___ Sacrament of Sick ___ Supportive presence ___ Wedding ___ Other (describe below) Pastoral Comments patient gives status and his health and asks questions; pt does not answer questions directed to him but does clearly express his thoughts and feelings; pt acknowledges that I have to get my strength back and I just have to be patient about working again ; pt speaks of his most recent job and believing that he has hope for a better life; pt asks for prayer
[2023-01-29 16:09] LABS: Anti-Centromere B Ab <0.2 AI (0.0-0.9); Anti-Chromatin <0.2 AI (0.0-0.9); Anti-Jo <0.2 AI (0.0-0.9); Anti-Mitochondrial AB <20.0 Units (0.0-20.0); Anti-Scleroderma-70 AB <0.2 AI (0.0-0.9); Anti-dsDNA Ab <1 IU/mL (0-9); RNP Ab <0.2 AI (0.0-0.9); SJOGREN'S Anti-SS-A test 0.4 AI (0.0-0.9); SJOGREN'S Anti-SS-B test < 0.2 AI (0.0-0.9); Smith Ab <0.2 AI (0.0-0.9)
--- NOTE | 2023-01-29 17:05 | CASEMGMT ---
Social Work placed call to pt's brother Alejo to inquire about choice of SNF. Alejo now confirms that pt will be going to [facility]. Precert is needed prior to admission. requested that [facility] start precert at this time and notify [facility] if precert is obtained over the weekend. Plan: [facility], pending precert AHMET Hernandez
--- NOTE | 2023-01-29 18:37 | EX.PCM.PN.GI ---
Subjective Subjective Patient is close to his baseline mentally. He is out of the ICU and on the medical floor now. He received transfusion of 2 units of packed red blood cells. Patient had 3 bowel movements today. Objective Data Objective Data Vital Signs: Vital Signs Temp Pulse Resp BP Pulse Ox O2 Del Method 98.6 F 78 18 128/73 H 97 Room Air 01/29/23 16:10 01/29/23 16:10 01/29/23 16:10 01/29/23 16:10 01/29/23 16:10 01/29/23 16:10 Oxygen Delivery Method Room Air Weight: 204 lb 5.896 oz Body Mass Index (BMI) 27.7 Intake & Output: Intake and Output for Last 24 Hours 01/27/23 01/28/23 01/29/23 23:59 23:59 23:59 Intake Total 2190.00 / 2190.00 2336.25 / 2336.25 1740 / 1740 Output Total 1800 / 1800 2200 / 2700 1400 / 1400 Balance 390.00 / 390.00 136.25 / -363.75 340 / 340 Lab / Micro Data 01/29/23 03:10 01/29/23 03:10 Labs: Laboratory Results - last 24 hr 01/27/23 23:30: MARIANO-1 Antibody <0.2, SS-A/Ro IgG Antibody 0.4, SS-B/La IgG Antibody < 0.2, Sm (Torres) Antibody <0.2, TENNIS COURT ATTENDANT Antibody <0.2, Scl-70 Scleroderma Ab <0.2, Double Strand DNA Ab <1, Centromere B Antibody <0.2, Anti-Mitochondrial Ab <20.0 01/29/23 03:10: WBC 5.5, RBC 3.28 L, Hgb 8.8 L, Hct 28.3 L, MCV 86.3, MCH 26.8 L, MCHC 31.1 L, RDW Std Deviation 54.8 H, RDW Coeff of Anil 17.6 H, Plt Count 165, MPV 11.2, Immature Gran % (Auto) 0.600, Neut % (Auto) 67.3, Lymph % (Auto) 11.7 L, [place] % (Auto) 14.1 H, Eos % (Auto) 5.7 H, Baso % (Auto) 0.6, Absolute Neuts (auto) 3.7, Absolute Lymphs (auto) 0.64 L, Nucleated RBC % 0, Sodium 145, Potassium 4.2, Chloride 121 H, Carbon Dioxide 19.0 L, Anion Gap 5, BUN 17, Creatinine 1.59 H, Estim Creat Clear Calc 57.62, Est GFR (MDRD) Af Amer 58 L, Est GFR (MDRD) Non-Af 48 L, BUN/Creatinine Ratio 10.7, Glucose 107 H, Calcium 7.0 L Micro: Microbiology 01/26/23 17:50 Blood Culture (Wb) - Left Hand Blood Culture - Preliminary No growth in 48 hours. 01/26/23 17:10 Blood Culture (Wb) - Anticubital Left Blood Culture - Preliminary No growth in 48 hours. 01/26/23 18:59 Urine, Catheterized Urine Culture - Final Klebsiella pneumoniae sp pneum 01/27/23 00:05 Urine Catheter - Ga Legionella Antigen - Final 01/27/23 00:05 Urine Catheter - Ga Streptococcus pneumoniae Antigen (M - Final 01/26/23 17:50 Nasal Secretion SARS-CoV-2 Antigen (Rapid) - Final Physical Exam Const alert and no apparent distress HEENT head/scalp atraumatic and moist oral mucous membranes Resp normal respiratory effort, no retractions, no use of accessory muscles and clear to auscultation bilaterally Cardio regular rate, regular rhythm, S1 normal heart sound and S2 normal heart sound GI normal to inspection, nondistended, normoactive bowel sounds Extremity 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 Assessment & Plan Assessment/Plan (1) History of encephalopathy: (2) Esophageal varices: QUALIFIERS: Esophageal varices type: idiopathic Esophageal varices bleeding: without bleeding Qualified Code(s): I85.00 - Esophageal varices without bleeding (3) Cirrhosis: QUALIFIERS: Hepatic cirrhosis type: other cirrhosis Qualified Code(s): K74.69 - Other cirrhosis of liver PLAN: Plan 57-year-old 57-year-old gentleman who I saw in the past for hyperammonemia of unknown cause. Patient had imaging at that time did not show any signs of cirrhosis. This was a year ago back in 04/2022. Since then, he's had an MRI and a recent CT scan that showed possible cirrhosis. H he had ultrasounds that did not show cirrhosis, and he recently had a Hida scan that showed at homogeneous liver without increase uptake in the liver, not consistent with cirrhosis. He would need a liver, biopsy, work out for autoimmune liver disease, such as alpha, one, any trips in disease, hemachromatosis, sarcoidosis, amyloidosis, all calvert, hepatitis, permeability, cirrhosis, or primary sclerosing cholangitis. He has been on tacrolimus for a long time which has been associated with mild leave this function causing portal, hypertension in a select few people that have underlying pre-existing liver disease from another source, such as fatty liver disease. His complete metabolic profile does show an acute on chronic cholestatic hepatitis with mild jaundice possibly secondary to decompensated liver disease. The leading cause this time would be intrahepatic cholestasis from sepsis. When medically stable, he will likely need an EGD to see if he has esophageal varices, Portal gastropathy, GAVE and other signs and symptoms of chronic liver disease in the upper G.I. tract. Also, recommend to check in ammonia level and possibly perform a diagnostic paracentesis. This will enable us to get a SAAG gradient to see if the fluid in his abdomen is secondary to the portal hypertension associated with cirrhosis. 01/29-patient had transfusion of packed red blood cells. He does not seem to be experiencing any side effects from the transfusion. He is on a calcium channel mino. He can possibly be transferred into a beta-mino for variceal prophylaxis. If his hemoglobin is stable then he can just be given PPI therapy with nadolol 10 mg twice a day. If hemoglobin is not stable and decreases then he may need an upper endoscopy prior to him being discharged. Yes recommended continue lactulose at current dose. Monitor kidney function. He has not shown any other signs of decompensation such as ascites or jaundice at this time. 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 Charges/Coding Visit Charges Inpatient E&M: 28214 Subs Hosp L3
[2023-01-29] MEDS: Mirtazapine 30 MG Tablet PO (21:14)
[2023-01-30] VITALS (8 sets, daily range): BP systolic 116–134; BP diastolic 74–91; PULSE 70–88; RESP 16–20; TEMP 36.6–36.7; O2SAT 96–100; BMI 27.8
[2023-01-30] MEDS: Aspirin 81 MG TAB.CHEW 162 MG PO (05:13)
[2023-01-30] MEDS: Mag Hydrox/Al Hydrox/Simeth 30 ML UDC PO (05:13)
[2023-01-30 05:27] LABS: Troponin-I HS 147 pg/mL (3.0-78.0)
--- NOTE | 2023-01-30 05:55 | RAD_ITS ---
INDICATION: positive troponins of 147 and chest pain EXAMINATION/TECHNIQUE: X-RAY - XR Chest 1 View COMPARISON: 01/26/2023. FINDINGS: LINES/DEVICES: None. LUNGS: Diffuse interstitial opacities. Bibasilar atelectasis versus infiltrates. No evidence of a pleural effusion or a pneumothorax. MEDIASTINUM AND CARDIOVASCULAR STRUCTURES: Cardiac silhouette is normal in size and contour. Mediastinum is unremarkable. BONES AND SOFT TISSUES: No acute abnormality. RAD/Chest 1 View (Portable) IMPRESSION: 1. Diffuse interstitial opacities consistent with edema versus pneumonia. 2. Bibasilar atelectasis versus infiltrates. Electronically Signed: Jean Alamo DO at 6:25 EDT ,
[2023-01-30 06:51] LABS: Absolute Lymphocyte Count 0.82 X10^3/uL (0.83-4.51); Basophil# 0.03 X10^3/uL; Basophil% 0.6 % (0-1); Eosinophil# 0.44 X10^3/uL; Eosinophils% 8.7 % (0-5); Hematocrit 27.4 % (40-54); Hemoglobin 8.6 g/dL (13.0-16.5); Lymphocyte # 0.82 X10^3/ul (0.83-4.51); Lymphocyte % 16.3 % (19-41); Mean Corp Hgb Conc 31.4 g/dL (32-36); Mean Corpuscular Hgb 26.6 pg (27.0-32.0); Mean Corpuscular Volume 84.8 fL (80-94); Mean Platelet Vol. 11.6 fl (6.2-12.0); Monocyte# 0.69 X10^3/uL; Monocyte% 13.7 % (0-10); NRBC Flagged by Analyzer 0 % (0-5); Neutrophil # 3.01 X10^3/uL (2.7-7.7); Neutrophil % 59.7 % (47-70); Platelet Count 155 K/mm3 (150-450); RBC Distribution Width CV 17.9 % (11.6-14.6); RBC Distribution Width SD 54.9 fl (35.1-43.9); Red Blood Count 3.23 M/mm3 (4.6-6.2)
[2023-01-30 07:02] LABS: Anion Gap 5 (5-15); BUN 15 mg/dL (7-18); BUN/Creat Ratio 11.3 RATIO (10-20); Calcium,Total 7.2 mg/dL (8.5-10.1); Chloride 118 mmol/L (98-107); Creatinine, Serum 1.33 mg/dL (0.70-1.30); EST Glomerular Filtration Rate 59 mL/min (>60); Est Glom Filt Rate - Afr Amer 72 mL/min (>60); Estimated Creatinine Clearance 68.88 ml/min; Glucose 97 mg/dL (74-106); Potassium 3.9 mmol/L (3.5-5.1); Sodium Level 142 mmol/L (136-145)
[2023-01-30] MEDS: levoFLOXacin 500 MG Tablet PO (07:03)
[2023-01-30] MEDS: Sodium Bicarbonate 650 MG Tablet 1300 MG PO ×3 (07:03→20:37)
[2023-01-30] MEDS: Lactulose 20 GM/30 ML UDC PO ×3 (07:03→20:36)
[2023-01-30 07:13] LABS: Troponin-I HS 132 pg/mL (3.0-78.0)
--- NOTE | 2023-01-30 07:45 | PN.HOSP_ITS ---
Reason for Visit Reason for Visit: Diagnoses Sepsis, unspecified organism (01/26/23) Acute posthemorrhagic anemia (01/26/23) Non-ST elevation (NSTEMI) myocardial infarction (01/26/23) Atherosclerotic heart disease of [place] coronary artery without angina pectoris (01/26/23) Paroxysmal atrial fibrillation (01/26/23) Esophageal varices without bleeding (01/26/23) Other cirrhosis of liver (01/26/23) Cholecystitis, unspecified (01/26/23) Acute kidney failure, unspecified (01/26/23) Chronic kidney disease, stage 3a (01/26/23) Urinary tract infection, site not specified (01/26/23) Severe sepsis with septic shock (01/26/23) Other specified abnormalities of plasma proteins (01/26/23) Infection and inflammatory reaction due to indwelling urethral catheter, initial encounter (01/26/23) Personal history of other diseases of the nervous system and sense organs (01/26/23) Subjective Subjective Complains of chest pain and difficulty when he talks. Patient was speaking saying a short of breath and he could not talk and then suddenly he was unable to get the words and indicating with that hand gestures that he wanted to write it out. With the shortness of breath, placed pulse oximeter on him and his pulse ox was around 99 to 100%. Still stated that he could not speak. I did ask him yes/no questions and he could not indicate yes or no. Objective Data Objective Data Vital Signs: Vital Signs Temp Pulse Resp BP Pulse Ox O2 Del Method 36.7 C 76 18 126/78 H 100 Room Air 01/30/23 06:54 01/30/23 06:54 01/30/23 06:54 01/30/23 06:54 01/30/23 06:54 01/30/23 06:54 Oxygen Delivery Method Room Air Weight: 92.7 kg Body Mass Index (BMI) 27.7 Intake & Output: Intake and Output for Last 24 Hours 01/28/23 01/29/23 01/30/23 23:59 23:59 23:59 Intake Total 2336.25 / 2336.25 1790 / 1790 1050 / 1050 Output Total 2200 / 2700 1400 / 1400 1400 / 1400 Balance 136.25 / -363.75 390 / 390 -350 / -350 Lab / Micro Data 01/30/23 06:08 01/30/23 06:08 Labs: Laboratory Results - last 24 hr 01/27/23 23:30: MARIANO-1 Antibody <0.2, SS-A/Ro IgG Antibody 0.4, SS-B/La IgG Antibody < 0.2, Sm (Torres) Antibody <0.2, CONCRETE BLOCK MOLDER Antibody <0.2, Scl-70 Scleroderma Ab <0.2, Double Strand DNA Ab <1, Centromere B Antibody <0.2, Anti-Mitochondrial Ab <20.0 01/30/23 04:43: Troponin I High Sens 147 H* 01/30/23 06:08: WBC 5.0, RBC 3.23 L, Hgb 8.6 L, Hct 27.4 L, MCV 84.8, MCH 26.6 L , MCHC 31.4 L, RDW Std Deviation 54.9 H, RDW Coeff of Anil 17.9 H, Plt Count 155, MPV 11.6, Immature Gran % (Auto) 1.000 H, Neut % (Auto) 59.7, Lymph % (Auto) 16.3 L, [place] % (Auto) 13.7 H, Eos % (Auto) 8.7 H, Baso % (Auto) 0.6, Absolute Neuts (auto) 3.0, Absolute Lymphs (auto) 0.82 L, Nucleated RBC % 0, Sodium 142, Potassium 3.9, Chloride 118 H, Carbon Dioxide 19.0 L, Anion Gap 5, BUN 15, Creatinine 1.33 H, Estim Creat Clear Calc 68.88, Est GFR (MDRD) Af Amer 72, Est GFR (MDRD) Non-Af 59 L, BUN/Creatinine Ratio 11.3, Glucose 97, Calcium 7.2 L, Tr oponin I High Sens 132 H* Micro: Microbiology 01/26/23 17:50 Blood Culture (Wb) - Left Hand Blood Culture - Preliminary No growth in 48 hours. 01/26/23 17:10 Blood Culture (Wb) - Anticubital Left Blood Culture - Preliminary No growth in 48 hours. 01/26/23 18:59 Urine, Catheterized Urine Culture - Final Klebsiella pneumoniae sp pneum 01/27/23 00:05 Urine Catheter - Ga Legionella Antigen - Final 01/27/23 00:05 Urine Catheter - Ga Streptococcus pneumoniae Antigen (M - Final 01/26/23 17:50 Nasal Secretion SARS-CoV-2 Antigen (Rapid) - Final Radiography Diagnostic Testing: Radiology Impression Chest X-Ray 01/30/23 05:55 IMPRESSION: 1. Diffuse interstitial opacities consistent with edema versus pneumonia. 2. Bibasilar atelectasis versus infiltrates. Electronically Signed: Jean Alamo, DO at 6:25 EDT , Physical Exam Const alert Constitutional Narrative: Anxious. Was speaking and then was unable to speak. Resp normal respiratory effort, no retractions, no use of accessory muscles and clear to auscultation bilaterally Cardio regular rate, regular rhythm, S1 normal heart sound and S2 normal heart sound GI normal to inspection, nondistended, normoactive bowel sounds, soft to palpation and non-tender Extremity Extremity Narrative: Fistula in left upper extremities. Neuro Sensorium / Orientation: awake and alert Psych Mood & Affect: anxious Assessment & Plan Assessment/Plan (1) Septic shock: PLAN: The patient presented with sepsis due to (UTI) with acute sepsis related organ dysfunction as evidenced by (lactic acidosis; PRISCILLA). SIRS 4/: Temperature more than 100.9 Fahrenheit (Tmax of 101.4 Fahrenheit in patient's case), Respiratory rate more than 20 (25 in patient case), Heart rate more than 90 (107 patient's case with EKG findings of sinus, tachycardia with rate of 103), WBC more than 12,000 (14,400 patient case) QSOFA 2 Other causes of his sepsis could be biliary disease; cholecystitis; etc. Abdomen/pelvis CT interpreted by radiology as thickened gallbladder wall with pericholecystic edema. Follow-up ultrasound did not confirm cholecystitis. We will get HIDA scan (2) PRISCILLA (acute kidney injury): PLAN: Resolved Admission creatinine 2.36. Baseline around 1.5. Improving with IVF. (3) NSTEMI, initial episode of care: PLAN: NSTEMI * Troponins trending down. * [facility] on 12/29: 60-70% stenosis in ostial and proximal ramus. Plan was for medical mgmt * Suspect type II event given septic shock * seen by cardiology. (4) Acute blood loss anemia: PLAN: Hg dropped from 9.9 to 7.9, 6.8 Monitor Transfuse 1 unit, Hg improved to 8.8. Will discuss with GI in regards to any inpatient plans for endoscopy. (5) Urinary tract infection: QUALIFIERS: Encounter type: initial encounter Indwelling urinary catheter type: indwelling urethral catheter Urinary tract infection type: catheter-associated UTI Qualified Code(s): T83.511A - Infection and inflammatory reaction due to indwelling urethral catheter, initial encounter; N39.0 - Urinary tract infection, site not specified PLAN: Secondary to Klebsiella. Klebsiella sensitive to all but ampicillin. Continue with levofloxacin (6) Aphonia: PLAN: Developed well is in the room with the patient where he was speaking saying a short of breath saying that it was difficult for him to speak because it hurt his chest and then very quickly he was unable to speak. I evaluated him neurologically had no other focal deficits to suggest that this was a stroke. Patient be very anxious I did address this with him. I did have speech therapy see him and when they evaluated him he was speaking. Seems this is brought in by anxiety as patient was having irregular breathing more consistent with panic attack rather than any kind of respiratory distress. I did place the patient on a pulse oximeter and during the entire encounter his pulse ox, with oxygen, was around 98 to 100%. I do not feel that this was a stroke but more more anxiety. To try to elucidate what may be making him feel anxious but patient was unable to state what that could be even with yes/no questions. (7) Hyperbilirubinemia: PLAN: chronic concern for underlying cirrhosis. contiue rifaxamin and lactulose GI consulted: recommended liver biopsy. Outpt EGD. PLAN: Plan chronic conditions: * renal x-plant: continue tacrolimus, mycophenolate * afib: continue metoprolol, diltiazem. had not been anticoagulation due to report of GI bleed. * HTN * Depression VTE prophylaxis: scds 01/29: Discussed with the patient's brother Alejo at [phone]. He had a myriad of questions and concerns. He had a myriad of concerns ranging from what can be done regards to his GI evaluation. He was also concerned that the longterm was not informed of when the patient was going to be sent sent to the longterm. I told him that likely discharge over the weekend pending GI evaluation. If patient is discharged would likely be tomorrow. He asked physically what time would be told him that prior to be in the afternoon when he was finally discharged. He asked about when some who would be the one to notify him when the patient is discharged. I told him that I would notify him. He went on to state that the longterm did not know all the details of what it was going on his hospitalization. I asked him why that was an issue and he is was rather flabbergasted by that questioning. He stated that would be important but he did not elaborate further in regards to why that is important. I did state that he that information would be provided prior to the patient being discharged. Charges/Coding Visit Charges Inpatient E&M: 01583 Subs Hosp L2
[2023-01-30] MEDS: 0.9% Normal Saline (1000mL) 1,000 ML 75 ML IV ×2 (09:13→20:35)
[2023-01-30] MEDS: Multivitamins,Therapeutic Tablet 1 TABLET PO (11:32)
[2023-01-30] MEDS: Clopidogrel Bisulfate 75 MG Tablet PO (11:32)
[2023-01-30] MEDS: dilTIAZem CD 120 MG Capsule PO (11:32)
[2023-01-30] MEDS: Metoprolol Tartrate 25 MG Tablet PO ×2 (11:32→20:36)
[2023-01-30] MEDS: Mycophenolate Mofetil 250 MG Capsule 500 MG PO ×2 (11:32→20:36)
[2023-01-30] MEDS: Tacrolimus 0.5 MG Capsule PO ×2 (11:32→20:37)
[2023-01-30] MEDS: rifAXIMin 550 MG Tablet PO ×2 (11:32→20:36)
[2023-01-30] MEDS: Mirtazapine 30 MG Tablet PO (20:37)
[2023-01-31] VITALS (8 sets, daily range): BP systolic 124–132; BP diastolic 79–85; PULSE 75–87; RESP 16–18; TEMP 36.6–37.2; O2SAT 94–98; BMI 27.8
[2023-01-31] MEDS: 0.9% Normal Saline (1000mL) 1,000 ML 75 ML IV ×2 (06:46→16:47)
[2023-01-31] MEDS: Menthol/Lanolin/Calamine/Znox 113 GM Tube 1 APPLIC TOPICAL ×3 (06:46→20:55)
[2023-01-31] MEDS: Sodium Bicarbonate 650 MG Tablet 1300 MG PO ×3 (06:46→20:50)
[2023-01-31] MEDS: levoFLOXacin 500 MG Tablet PO (06:46)
[2023-01-31] MEDS: Lactulose 20 GM/30 ML UDC PO ×3 (06:46→20:49)
[2023-01-31 07:04] LABS: Absolute Lymphocyte Count 0.68 X10^3/uL (0.83-4.51); Absolute Neutrophil Count 3.5 X10^3/uL (2.0-7.7); Basophil# 0.03 X10^3/uL; Basophil% 0.6 % (0-1); Eosinophil# 0.39 X10^3/uL; Eosinophils% 7.3 % (0-5); Hematocrit 27.9 % (40-54); Hemoglobin 8.8 g/dL (13.0-16.5); Lymphocyte # 0.68 X10^3/ul (0.83-4.51); Lymphocyte % 12.7 % (19-41); Mean Corp Hgb Conc 31.5 g/dL (32-36); Mean Corpuscular Hgb 26.7 pg (27.0-32.0); Mean Corpuscular Volume 84.8 fL (80-94); Mean Platelet Vol. 11.5 fl (6.2-12.0); Monocyte% 13.1 % (0-10); NRBC Flagged by Analyzer 0 % (0-5); Neutrophil % 65.4 % (47-70); Platelet Count 166 K/mm3 (150-450); RBC Distribution Width CV 18.1 % (11.6-14.6); RBC Distribution Width SD 55.6 fl (35.1-43.9); Red Blood Count 3.29 M/mm3 (4.6-6.2); White Blood Count 5.4 K/mm3 (4.4-11.0)
[2023-01-31 07:30] LABS: Anion Gap 5 (5-15); BUN 16 mg/dL (7-18); BUN/Creat Ratio 12.8 RATIO (10-20); Calcium,Total 7.3 mg/dL (8.5-10.1); Chloride 116 mmol/L (98-107); Creatinine, Serum 1.25 mg/dL (0.70-1.30); EST Glomerular Filtration Rate 64 mL/min (>60); Est Glom Filt Rate - Afr Amer 77 mL/min (>60); Estimated Creatinine Clearance 73.29 ml/min; Glucose 92 mg/dL (74-106); Potassium 4.2 mmol/L (3.5-5.1); Sodium Level 141 mmol/L (136-145)
--- NOTE | 2023-01-31 07:49 | PCM.PN.HOSP ---
Reason for Visit Reason for Visit: Diagnoses Sepsis, unspecified organism (01/26/23) Acute posthemorrhagic anemia (01/26/23) Other disorders of bilirubin metabolism (01/26/23) Non-ST elevation (NSTEMI) myocardial infarction (01/26/23) Atherosclerotic heart disease of [place] coronary artery without angina pectoris (01/26/23) Paroxysmal atrial fibrillation (01/26/23) Esophageal varices without bleeding (01/26/23) Other cirrhosis of liver (01/26/23) Cholecystitis, unspecified (01/26/23) Acute kidney failure, unspecified (01/26/23) Chronic kidney disease, stage 3a (01/26/23) Urinary tract infection, site not specified (01/26/23) Aphonia (01/26/23) Severe sepsis with septic shock (01/26/23) Other specified abnormalities of plasma proteins (01/26/23) Infection and inflammatory reaction due to indwelling urethral catheter, initial encounter (01/26/23) Personal history of other diseases of the nervous system and sense organs (01/26/23) Subjective Subjective No events overnight. Feels well. Objective Data Objective Data Vital Signs: Vital Signs Temp Pulse Resp BP Pulse Ox O2 Del Method O2 Flow Rate 37.0 C 82 16 124/84 H 95 Room Air 2 01/31/23 06:37 01/31/23 06:37 01/31/23 06:37 01/31/23 06:37 01/31/23 06:37 01/31/23 06:37 01/30/23 10:39 Oxygen Flow Rate (L/min) 2 Oxygen Delivery Method Room Air Weight: 93.1 kg Body Mass Index (BMI) 27.8 Intake & Output: Intake and Output for Last 24 Hours 01/29/23 01/30/23 01/31/23 23:59 23:59 23:59 Intake Total 1790 / 1790 2797.5 / 2797.5 1063.75 / 1063.75 Output Total 1400 / 1400 3300 / 3300 1300 / 1300 Balance 390 / 390 -502.5 / -502.5 -236.25 / -236.25 Lab / Micro Data 01/31/23 06:30 01/31/23 06:30 Labs: Laboratory Results - last 24 hr 01/31/23 06:30: WBC 5.4, RBC 3.29 L, Hgb 8.8 L, Hct 27.9 L, MCV 84.8, MCH 26.7 L, MCHC 31.5 L, RDW Std Deviation 55.6 H, RDW Coeff of Anil 18.1 H, Plt Count 166, MPV 11.5, Immature Gran % (Auto) 0.900, Neut % (Auto) 65.4, Lymph % (Auto) 12.7 L, [place] % (Auto) 13.1 H, Eos % (Auto) 7.3 H, Baso % (Auto) 0.6, Absolute Neuts (auto) 3.5, Absolute Lymphs (auto) 0.68 L, Nucleated RBC % 0, Sodium 141, Potassium 4.2, Chloride 116 H, Carbon Dioxide 20.0 L, Anion Gap 5, BUN 16, Creatinine 1.25, Estim Creat Clear Calc 73.29, Est GFR (MDRD) Af Amer 77, Est GFR (MDRD) Non-Af 64, BUN/Creatinine Ratio 12.8, Glucose 92, Calcium 7.3 L Micro: Microbiology 01/26/23 17:50 Blood Culture (Wb) - Left Hand Blood Culture - Preliminary No growth in 48 hours. 01/26/23 17:10 Blood Culture (Wb) - Anticubital Left Blood Culture - Preliminary No growth in 48 hours. 01/26/23 18:59 Urine, Catheterized Urine Culture - Final Klebsiella pneumoniae sp pneum 01/27/23 00:05 Urine Catheter - Ga Legionella Antigen - Final 01/27/23 00:05 Urine Catheter - Ga Streptococcus pneumoniae Antigen (M - Final 01/26/23 17:50 Nasal Secretion SARS-CoV-2 Antigen (Rapid) - Final Physical Exam Const alert and no apparent distress HEENT head/scalp atraumatic and moist oral mucous membranes Resp normal respiratory effort and no retractions Cardio regular rate, regular rhythm, S1 normal heart sound and S2 normal heart sound GI normal to inspection, nondistended, normoactive bowel sounds, soft to palpation, non-tender and non-distended Assessment & Plan Assessment/Plan (1) Septic shock: PLAN: The patient presented with sepsis due to (UTI) with acute sepsis related organ dysfunction as evidenced by (lactic acidosis; PRISCILLA). SIRS /4: Temperature more than 100.9 Fahrenheit (Tmax of 101.4 Fahrenheit in patient's case), Respiratory rate more than 20 (25 in patient case), Heart rate more than 90 (107 patient's case with EKG findings of sinus, tachycardia with rate of 103), WBC more than 12,000 (14,400 patient case) QSOFA 2 Other causes of his sepsis could be biliary disease; cholecystitis; etc. Abdomen/pelvis CT interpreted by radiology as thickened gallbladder wall with pericholecystic edema. Follow-up ultrasound did not confirm cholecystitis. We will get HIDA scan (2) PRISCILLA (acute kidney injury): PLAN: Resolved Admission creatinine 2.36. Baseline around 1.5. Improving with IVF. (3) NSTEMI, initial episode of care: PLAN: Troponins trending down. [facility] on 12/29: 60-70% stenosis in ostial and proximal ramus. Plan was for medical mgmt Suspect type II event given septic shock seen by cardiology. (4) Acute blood loss anemia: PLAN: Hg dropped from 9.9 to 7.9, 6.8 Monitor Transfuse 1 unit, Hg improved to 8.8. Outpt follow up with GI. (5) Urinary tract infection: QUALIFIERS: Encounter type: initial encounter Indwelling urinary catheter type: indwelling urethral catheter Urinary tract infection type: catheter-associated UTI Qualified Code(s): T83.511A - Infection and inflammatory reaction due to indwelling urethral catheter, initial encounter; N39.0 - Urinary tract infection, site not specified PLAN: Secondary to Klebsiella. Klebsiella sensitive to all but ampicillin. Continue with levofloxacin through 02/02. (6) Aphonia: PLAN: Developed 01/30 while I was is in the room with the patient where he was speaking saying a short of breath saying that it was difficult for him to speak because it hurt his chest and then very quickly he was unable to speak. I evaluated him neurologically had no other focal deficits to suggest that this was a stroke. Patient be very anxious I did address this with him. I did have speech therapy see him and when they evaluated him he was speaking. Seems this is brought in by anxiety as patient was having irregular breathing more consistent with panic attack rather than any kind of respiratory distress. I did place the patient on a pulse oximeter and during the entire encounter his pulse ox, with oxygen, was around 98 to 100%. I do not feel that this was a stroke but more more anxiety. To try to elucidate what may be making him feel anxious but patient was unable to state what that could be even with yes/no questions. (7) Hyperbilirubinemia: PLAN: chronic concern for underlying cirrhosis. continue rifaximin and lactulose GI consulted: recommended liver biopsy. EGD. Can be done as outpt. PLAN: Plan chronic conditions: renal x-plant: continue tacrolimus, mycophenolate afib: continue metoprolol, diltiazem. had not been anticoagulation due to report of GI bleed. HTN Depression VTE prophylaxis: scds 01/29: Discussed with the patient's brother Alejo at [phone]. He had a myriad of questions and concerns. He had a myriad of concerns ranging from what can be done regards to his GI evaluation. He was also concerned that the long-term was not informed of when the patient was going to be sent sent to the long-term. I told him that likely discharge over the weekend pending GI evaluation. If patient is discharged would likely be tomorrow. He asked physically what time would be told him that prior to be in the afternoon when he was finally discharged. He asked about when some who would be the one to notify him when the patient is discharged. I told him that I would notify him. He went on to state that the long-term did not know all the details of what it was going on his hospitalization. I asked him why that was an issue and he is was rather flabbergasted by that questioning. He stated that would be important but he did not elaborate further in regards to why that is important. I did state that he that information would be provided prior to the patient being discharged. Charges/Coding Visit Charges Inpatient E&M: 77058 Subs Hosp L2
[2023-01-31] MEDS: Clopidogrel Bisulfate 75 MG Tablet PO (09:13)
[2023-01-31] MEDS: Metoprolol Tartrate 25 MG Tablet PO ×2 (09:13→20:50)
[2023-01-31] MEDS: Mycophenolate Mofetil 250 MG Capsule 500 MG PO ×2 (09:13→20:51)
[2023-01-31] MEDS: Tacrolimus 0.5 MG Capsule PO ×2 (09:13→20:52)
[2023-01-31] MEDS: rifAXIMin 550 MG Tablet PO ×2 (09:13→20:49)
[2023-01-31] MEDS: dilTIAZem CD 120 MG Capsule PO (09:13)
[2023-01-31] MEDS: Multivitamins,Therapeutic Tablet 1 TABLET PO (09:14)
[2023-01-31] MEDS: Mirtazapine 30 MG Tablet PO (20:50)
[2023-02-01 05:26] VITALS: BP 128/80; PULSE 76; RESP 18; TEMP 36.7; O2SAT 95
[2023-02-01 05:31] VITALS: BMI 27.8
[2023-02-01] MEDS: levoFLOXacin 500 MG Tablet PO (05:33)
[2023-02-01] MEDS: Lactulose 20 GM/30 ML UDC PO (05:33)
[2023-02-01] MEDS: Sodium Bicarbonate 650 MG Tablet 1300 MG PO (05:33)
[2023-02-01] MEDS: 0.9% Normal Saline (1000mL) 1,000 ML 75 ML IV (05:36)
[2023-02-01 07:40] VITALS: O2SAT 94
--- NOTE | 2023-02-01 07:53 | PCM.PN.HOSP ---
Reason for Visit Reason for Visit: Diagnoses Sepsis, unspecified organism (01/26/23) Acute posthemorrhagic anemia (01/26/23) Other disorders of bilirubin metabolism (01/26/23) Non-ST elevation (NSTEMI) myocardial infarction (01/26/23) Atherosclerotic heart disease of [place] coronary artery without angina pectoris (01/26/23) Paroxysmal atrial fibrillation (01/26/23) Esophageal varices without bleeding (01/26/23) Other cirrhosis of liver (01/26/23) Cholecystitis, unspecified (01/26/23) Acute kidney failure, unspecified (01/26/23) Chronic kidney disease, stage 3a (01/26/23) Urinary tract infection, site not specified (01/26/23) Aphonia (01/26/23) Severe sepsis with septic shock (01/26/23) Other specified abnormalities of plasma proteins (01/26/23) Infection and inflammatory reaction due to indwelling urethral catheter, initial encounter (01/26/23) Personal history of other diseases of the nervous system and sense organs (01/26/23) Subjective Subjective Patient is a 57-year-old gentleman resident at an [facility] with history of renal transplant presented with fever diagnosis septic shock secondary to acute cystitis Objective Data Objective Data Vital Signs: Vital Signs Temp Pulse Resp BP Pulse Ox O2 Del Method O2 Flow Rate 98.1 F 76 18 128/80 H 95 Room Air 2 02/01/23 05:26 02/01/23 05:26 02/01/23 05:26 02/01/23 05:26 02/01/23 05:26 02/01/23 05:26 01/30/23 10:39 Oxygen Flow Rate (L/min) 2 Oxygen Delivery Method Room Air Weight: 93 kg Body Mass Index (BMI) 27.8 Intake & Output: Intake and Output for Last 24 Hours 01/30/23 01/31/23 02/01/23 23:59 23:59 23:59 Intake Total 2797.5 / 2797.5 1815.00 / 1815.00 1361.25 / 1361.25 Output Total 3300 / 3300 2050 / 2050 1700 / 1700 Balance -502.5 / -502.5 -235.00 / -235.00 -338.75 / -338.75 Lab / Micro Data 01/31/23 06:30 01/31/23 06:30 Micro: Microbiology 01/26/23 17:50 Blood Culture (Wb) - Left Hand Blood Culture - Final No growth in 5 days. 01/26/23 17:10 Blood Culture (Wb) - Anticubital Left Blood Culture - Final No growth in 5 days. 01/26/23 18:59 Urine, Catheterized Urine Culture - Final Klebsiella pneumoniae sp pneum 01/27/23 00:05 Urine Catheter - Ga Legionella Antigen - Final 01/27/23 00:05 Urine Catheter - Ga Streptococcus pneumoniae Antigen (M - Final 01/26/23 17:50 Nasal Secretion SARS-CoV-2 Antigen (Rapid) - Final Physical Exam Narrative GENERAL: cooperative HEENT: Atraumatic; normocephalic EYES; Anicteric, Normal Conjunctiva NECK; supple, normal thyroid, RESPIRATORY: Diminished to auscultation CARDIOVASCULAR: Regular S1 S2, GI: soft, normoactive bowel sounds, : No Renal angle tenderness; EXTREMITIES: No edema, no clubbing, MUSCULOSKELETAL: no muscle wasting NEURO: Awake; no lateralizing signs. SKIN: No Rash PSYCH; Flat affect Assessment & Plan Assessment/Plan (1) Septic shock: PLAN: Plan Patient is a 57-year-old gentleman resident at an extended care facility with history of renal transplant presented with fever diagnosis septic shock secondary to acute cystitis 1. Septic shock secondary to acute cystitis ? Patient urine cultures grew Klebsiella on appropriate antibiotic therapy at this point 2. Anemia - Secondary to chronic disorder monitoring H&H and transfuse if patient becomes symptomatic or hemoglobin falls below 7 3. Bilateral lower extremity swelling ? Billy wrap as needed 4. Previous history of kidney transplant ? Patient is on tacrolimus as well as CellCept continue 5. Chronic kidney disease stage IIIb ? Kidney function at baseline 6. Recent diagnosis of A-fib ? Patient is on calcium channel blockers as well as beta-blockers. Patient was on Eliquis held as a result of suspected lower GI bleed 7. Moderate MRDD ? Supportive care 8. Hypertension - Blood pressure controlled, home medications continued with dose adjustment as needed 9. Depression ? Patient is on Remeron 10. Chronic liver disease ? Patient was seen in consultation by GI Dr. Nicholas. Recommended for patient to undergo possible biopsy given the fact that patient has been on tacrolimus. Also recommended continuation of lactulose at current dose. Patient will be set up 11. DVT prophylaxis ? SC heparin Time spent in the patient's overall evaluation,decision-making process, review of diagnostic data, adjustment of management, discussion with other providers, nursing nursing and ancillary staff involved in patient's care documentation, 35 Minutes Charges/Coding Visit Charges Inpatient E&M: 55070 Subs Hosp L2
[2023-02-01 08:05] VITALS: PULSE 77
[2023-02-01] MEDS: dilTIAZem CD 120 MG Capsule PO (08:05)
[2023-02-01] MEDS: Metoprolol Tartrate 25 MG Tablet PO (08:05)
[2023-02-01] MEDS: Clopidogrel Bisulfate 75 MG Tablet PO (08:05)
[2023-02-01] MEDS: rifAXIMin 550 MG Tablet PO (08:05)
[2023-02-01] MEDS: Multivitamins,Therapeutic Tablet 1 TABLET PO (08:05)
[2023-02-01] MEDS: Tacrolimus 0.5 MG Capsule PO (08:06)
[2023-02-01] MEDS: Mycophenolate Mofetil 250 MG Capsule 500 MG PO (08:06)
[2023-02-01] MEDS: Menthol/Lanolin/Calamine/Znox 113 GM Tube 1 APPLIC TOPICAL (08:06)
[2023-02-01 08:13] VITALS: O2SAT 94
[2023-02-01 09:12] VITALS: BP 129/83; PULSE 78; RESP 16; TEMP 36.7; O2SAT 96
--- NOTE | 2023-02-01 09:44 | CASEMGMT ---
Discharge Planning [facility] has received precert. SW updated. Joanna Lee, Discharge Planning Asst.
--- NOTE | 2023-02-01 10:47 | TREXTCAR_ITS ---
Diet Diet Order/Speech Therapy: 01/30/23 11:41 Diet: Cardiac - Heart Healthy Is pt able to select menu?: Yes Routine Orders/Code Status Code Status: Full Code Therapies Physical Therapy: Eval and Treat Occupational Therapy: Eval and Treat Speech Therapy: Eval and Treat Problem/Diagnosis (1) Septic shock: Status: Acute Code(s): A41.9 - Sepsis, unspecified organism; R65.21 - Severe sepsis with septic shock Plan Patient is a 57-year-old gentleman resident at an extended care facility with history of renal transplant presented with fever diagnosis septic shock secondary to acute cystitis 1. Septic shock secondary to acute cystitis ? Patient urine cultures grew Klebsiella on appropriate antibiotic therapy at this point 2. Anemia - Secondary to chronic disorder monitoring H&H and transfuse if patient becomes symptomatic or hemoglobin falls below 7 3. Bilateral lower extremity swelling ? Billy wrap as needed 4. Previous history of kidney transplant ? Patient is on tacrolimus as well as CellCept continue 5. Chronic kidney disease stage IIIb ? Kidney function at baseline 6. Recent diagnosis of A-fib ? Patient is on calcium channel blockers as well as beta-blockers. Patient was on Eliquis held as a result of suspected lower GI bleed 7. Moderate MRDD ? Supportive care 8. Hypertension - Blood pressure controlled, home medications continued with dose adjustment as needed 9. Depression ? Patient is on Remeron 10. Chronic liver disease ? Patient was seen in consultation by GI Dr. Nicholas. Recommended for patient to undergo possible biopsy given the fact that patient has been on tacrolimus. Also recommended continuation of lactulose at current dose. Patient will be set up 11. DVT prophylaxis ? SC heparin Time spent in the patient's overall evaluation,decision-making process, review of diagnostic data, adjustment of management, discussion with other providers, nursing nursing and ancillary staff involved in patient's care documentation, 35 Minutes Allergies/Procedures Done in Hospital Allergies red dye Allergy (Verified 01/26/23 16:51) PT UNSURE OF REACTION Type of Care/Length of Stay Estimated LOS: Convalescent Care Less Than 30 days Type of Care Needed: Skilled Rehab Potential: Good Prognosis: Good Additional Orders/Day of Discharge Day of Discharge: 02/01/23 Dietary and Speech Recommendations Dietitian Recommendations/Changes: recommend advance diet as tolerated to cardiac; consider [employer]ELOPMENT eval if issues w/ chewing/swallowing evident Discharge Plan Admission Admit Date/Time: 01/26/23 20:44 Attending Provider: Rayo Cartagena Primary Care Provider: Mike Bella Consulting Providers: Raúl Calvillo; Vicente Alcaraz; Rahat Nicholas; Ambrosio Solis Discharge Orders/Prescriptions Prescriptions: New menthol-zinc oxide [Calmoseptine] 0.44-20.6 % Ointment 1 applic topical BID Qty: 0 0RF Protocol: *Topical Application Instructions APPLICATION INSTRUCTIONS: APPLY TO AFFECTED AREA melatonin 3 mg Tablet 3 mg PO QHS PRN PRN (Reason: Insomnia) Qty: 0 0RF cefdinir 300 mg capsule 300 mg PO BID Qty: 14 0RF atorvastatin 40 mg tablet 40 mg PO DAILY Qty: 30 0RF Continued mycophenolate mofetil 500 MG tablet 500 mg PO BID multivitamin Tablet 1 tab PO DAILY lactulose 20 gram/30 mL solution 30 ml PO TID sodium bicarbonate 650 mg tablet 1,300 mg PO TID Xifaxan 550 mg tablet 550 mg PO BID tacrolimus 0.5 mg capsule 0.5 mg PO BID atorvastatin 40 mg tablet 40 mg PO DAILY mirtazapine 30 mg tablet 30 mg PO QHS mineral oil [Fleet Mineral Oil] Enema 118 ml SD DAILY PRN (Reason: CONSTIPATION ) magnesium hydroxide [Dulcolax (magnesium hydroxide)] 400 mg/5 mL suspension 30 ml PO Q24H PRN (Reason: CONSTIPATION ) diltiazem HCl [Cardizem LA] 120 mg tablet extended release 24 hr 120 mg PO DAILY Qty: 30 0RF metoprolol tartrate 25 mg Tablet 25 mg PO BID Qty: 0 0RF Referrals / Follow Up: Mike Bella MD [Primary Care Provider] - Within 2 Weeks Rahat Nicholas DO [Med Staff - Active Staff] - Within 2 Weeks Disposition Disposition (needs filled in before D/C Order can be placed): [facility]
--- NOTE | 2023-02-01 10:53 | PCM.DC.SUM ---
Providers Date of Admission: 01/26/23 Date of Discharge: 02/01/23 Primary Care Physician: Dr. Mike Bella MD Consultations 01/26/23 23:50 Consult: Cardiology Routine Consulting Provider: Vicente Alcaraz Reason for Consult: elevated troponin EMERGENT Consult: No Notified: Yes Date Notified: 01/26/23 Time Notified: 21:00 Method of Notification: Verbal Method of Consult:: In-Person Consult: Gastroenterology Routine Consulting Provider: Rahat Nicholas Reason for Consult: Hyperlipidemia EMERGENT Consult: No Notified: Yes Date Notified: 01/26/23 Time Notified: 21:36 Method of Notification: Text Reason For Visit: SDEPTIC SHOCK Diagnosis Discharge Diagnosis (1) Septic shock: Status: Acute Code(s): A41.9 - Sepsis, unspecified organism; R65.21 - Severe sepsis with septic shock Plan Patient is a 57-year-old gentleman resident at an [facility] care facility with history of renal transplant presented with fever diagnosis septic shock secondary to acute cystitis 1. Septic shock secondary to acute cystitis ? Patient urine cultures grew Klebsiella on appropriate antibiotic therapy at this point 2. Elevated troponin ? Secondary to demand ischemia. [facility] on 12/29: 60-70% stenosis in ostial and proximal ramus. Managed with medical therapy. Patient was not discharged on dual antiplatelet therapy given history of GI bleed 3. Anemia ? Secondary to anemia of chronic disorder patient was transfused 1 unit PRBC 4. Previous history of kidney transplant ? Patient is on tacrolimus as well as CellCept continue 5. Chronic kidney disease stage IIIb ? Kidney function at baseline 6. Recent diagnosis of A-fib ? Patient is on calcium channel blockers as well as beta-blockers. Patient was on Eliquis held as a result of suspected lower GI bleed 7. Moderate MRDD ? Supportive care 8. Hypertension - Blood pressure controlled, home medications continued with dose adjustment as needed 9. Depression ? Patient is on Remeron 10. Chronic liver disease ? Patient was seen in consultation by GI Dr. Nicholas. Recommended for patient to undergo possible biopsy given the fact that patient has been on tacrolimus. Also recommended continuation of lactulose at current dose. Patient will be set up 11. DVT prophylaxis ? SC heparin Time spent in the patient's overall evaluation,decision-making process, review of diagnostic data, adjustment of management, discussion with other providers, nursing nursing and ancillary staff involved in patient's care documentation, 35 Minutes Medications at Discharge Home Medications mycophenolate mofetil 500 mg tablet 500 mg PO BID TRANSPLANT ANTI-REJECTION 07/14/16 multivitamin 1 tab PO DAILY SUPPLEMENT 02/13/22 lactulose 20 gram/30 mL oral solution 30 ml PO TID CONSTIPATION 06/13/22 rifaximin 550 mg tablet (Xifaxan) 550 mg PO BID ANTIBIOTIC 07/16/22 sodium bicarbonate 650 mg tablet 1,300 mg PO TID HEARTBURN/INDIGESTION 07/16/22 magnesium hydroxide 400 mg/5 mL oral suspension (Dulcolax (magnesium hydroxide)) 30 ml PO Q24H PRN CONSTIPATION 11/01/22 mineral oil (Fleet Mineral Oil enema) 118 ml ID DAILY PRN CONSTIPATION 11/01/22 mirtazapine 30 mg tablet 30 mg PO QHS DEPRESSION 11/01/22 diltiazem HCl 120 mg tablet,extended release 24 hr (Cardizem LA) 120 mg PO DAILY BLOOD PRESSURE #30 tabs 01/01/23 metoprolol tartrate 25 mg tablet 25 mg PO BID BLOOD PRESSURE #0 tabs 01/01/23 tacrolimus 0.5 mg capsule, immediate-release 0.5 mg PO BID TRANSPLANT ANTI-REJECTION 01/15/23 atorvastatin 40 mg tablet 40 mg PO DAILY CHOLESTEROL 01/26/23 atorvastatin 40 mg tablet 40 mg PO DAILY #30 tabs 02/01/23 cefdinir 300 mg capsule 300 mg PO BID #14 caps 02/01/23 melatonin 3 mg tablet 3 mg PO QHS PRN PRN Insomnia #0 tabs 02/01/23 menthol 0.44 %-zinc oxide 20.6 % topical ointment (Calmoseptine) 1 applic topical BID #0 grams 02/01/23 Hospital Course Summary of Care Provided Minutes Spent on Discharge: 35 Physical Exam Narrative GENERAL: cooperative HEENT: Atraumatic; normocephalic EYES; Anicteric, Normal Conjunctiva NECK; supple, normal thyroid, RESPIRATORY: Diminished to auscultation CARDIOVASCULAR: Regular S1 S2, GI: soft, normoactive bowel sounds, : No Renal angle tenderness; EXTREMITIES: No edema, no clubbing, MUSCULOSKELETAL: no muscle wasting NEURO: Awake; no lateralizing signs. SKIN: No Rash PSYCH; Flat affect Weight / BMI Weight Weight: 93 kg Body Mass Index (BMI) 27.8 ABG / Lab / Microbiology Data 01/31/23 06:30 01/31/23 06:30 Microbiology: Microbiology 01/26/23 17:50 Blood Culture (Wb) - Left Hand Blood Culture - Final No growth in 5 days. 01/26/23 17:10 Blood Culture (Wb) - Anticubital Left Blood Culture - Final No growth in 5 days. 01/26/23 18:59 Urine, Catheterized Urine Culture - Final Klebsiella pneumoniae sp pneum 01/27/23 00:05 Urine Catheter - Ga Legionella Antigen - Final 01/27/23 00:05 Urine Catheter - Ga Streptococcus pneumoniae Antigen (M - Final 01/26/23 17:50 Nasal Secretion SARS-CoV-2 Antigen (Rapid) - Final D/C Instructions Discharge Diet: No restrictions Discharge Activity: Return to Normal Activity Call your doctor if you observe: Fever of 101 or Higher, Shortness of breath, Fainting spells and Chest pain Meaningful Use Info Meaningful Use Diagnoses (Choose all that apply): None applicable Discharge Plan Admission Admit Date/Time: 01/26/23 20:44 Attending Provider: Rayo Cartagena Primary Care Provider: Mike Bella Consulting Providers: Raúl Calvillo; Vicente Alcaraz; Rahat Nicholas; Ambrosio Solis Discharge Orders/Prescriptions Prescriptions: New menthol-zinc oxide [Calmoseptine] 0.44-20.6 % Ointment 1 applic topical BID Qty: 0 0RF Protocol: *Topical Application Instructions APPLICATION INSTRUCTIONS: APPLY TO AFFECTED AREA melatonin 3 mg Tablet 3 mg PO QHS PRN PRN (Reason: Insomnia) Qty: 0 0RF cefdinir 300 mg capsule 300 mg PO BID Qty: 14 0RF atorvastatin 40 mg tablet 40 mg PO DAILY Qty: 30 0RF Continued mycophenolate mofetil 500 MG tablet 500 mg PO BID multivitamin Tablet 1 tab PO DAILY lactulose 20 gram/30 mL solution 30 ml PO TID sodium bicarbonate 650 mg tablet 1,300 mg PO TID Xifaxan 550 mg tablet 550 mg PO BID tacrolimus 0.5 mg capsule 0.5 mg PO BID atorvastatin 40 mg tablet 40 mg PO DAILY mirtazapine 30 mg tablet 30 mg PO QHS mineral oil [Fleet Mineral Oil] Enema 118 ml ID DAILY PRN (Reason: CONSTIPATION ) magnesium hydroxide [Dulcolax (magnesium hydroxide)] 400 mg/5 mL suspension 30 ml PO Q24H PRN (Reason: CONSTIPATION ) diltiazem HCl [Cardizem LA] 120 mg tablet extended release 24 hr 120 mg PO DAILY Qty: 30 0RF metoprolol tartrate 25 mg Tablet 25 mg PO BID Qty: 0 0RF Referrals / Follow Up: Mike Bella MD [Primary Care Provider] - Within 2 Weeks Rahat Nicholas DO [Med Staff - Active Staff] - Within 2 Weeks Disposition Disposition (needs filled in before D/C Order can be placed): Care Home Facility Charges/Coding Visit Charges Inpatient E&M: 74128 Disch Hosp >30min
--- NOTE | 2023-02-01 11:20 | CASEMGMT ---
Discharge Planning Discharge orders, signed med list, and transport time sent to [facility] via [facility]. [facility] will transport patient by cot at 12:30p. Nursing, SW, and patients brother notified. He is to notify his sister. Joanna Lee, Discharge Planning Asst.
--- NOTE | 2023-02-01 11:25 | PHA.DC.MC.R ---
Pharmacy [facility] has performed discharge medication reconciliation and counseling for this patient. The patient's discharge medication list was reviewed for discrepancies and discrepancies were resolved. The patient was counseled on the following discharge medications and changes in medications for homegoing were reviewed. The Reason for Use, instructions for use, and potential side effects were reviewed for all new medications. The patient's questions regarding all of their medications were answered. 1. Cefdinir 300 mg PO BID x 7 days 2. Atorvastatin 40 mg PO daily The patient was not able to adequately demonstrate understanding. Medications at Discharge Home Medications mycophenolate mofetil 500 mg tablet 500 mg PO BID TRANSPLANT ANTI-REJECTION 07/14/16 multivitamin 1 tab PO DAILY SUPPLEMENT 02/13/22 lactulose 20 gram/30 mL oral solution 30 ml PO TID CONSTIPATION 06/13/22 rifaximin 550 mg tablet (Xifaxan) 550 mg PO BID ANTIBIOTIC 07/16/22 sodium bicarbonate 650 mg tablet 1,300 mg PO TID HEARTBURN/INDIGESTION 07/16/22 magnesium hydroxide 400 mg/5 mL oral suspension (Dulcolax (magnesium hydroxide)) 30 ml PO Q24H PRN CONSTIPATION 11/01/22 mineral oil (Fleet Mineral Oil enema) 118 ml NC DAILY PRN CONSTIPATION 11/01/22 mirtazapine 30 mg tablet 30 mg PO QHS DEPRESSION 11/01/22 diltiazem HCl 120 mg tablet,extended release 24 hr (Cardizem LA) 120 mg PO DAILY BLOOD PRESSURE #30 tabs 01/01/23 metoprolol tartrate 25 mg tablet 25 mg PO BID BLOOD PRESSURE #0 tabs 01/01/23 tacrolimus 0.5 mg capsule, immediate-release 0.5 mg PO BID TRANSPLANT ANTI-REJECTION 01/15/23 atorvastatin 40 mg tablet 40 mg PO DAILY CHOLESTEROL 01/26/23 atorvastatin 40 mg tablet 40 mg PO DAILY #30 tabs 02/01/23 cefdinir 300 mg capsule 300 mg PO BID #14 caps 02/01/23 melatonin 3 mg tablet 3 mg PO QHS PRN PRN Insomnia #0 tabs 02/01/23 menthol 0.44 %-zinc oxide 20.6 % topical ointment (Calmoseptine) 1 applic topical BID #0 grams 02/01/23
[2023-02-01 11:36] VITALS: BP 102/59; PULSE 73; RESP 16; TEMP 36.6; O2SAT 97
[2023-02-04 20:07] LABS: Albumin 2.4 g/dL (2.9-4.4); Alpha-1-Globulins 0.4 g/dL (0.0-0.4); Alpha-2-Globulins 0.5 g/dL (0.4-1.0); Anti-Smooth Muscle ABS 22 Units (0-19); Ceruloplasmin 19.3 mg/dL (16.0-31.0); Copper, Serum or Plasma 94 ug/dL (69-132); Cytoplasmic Ab (C-ANCA) <1:20 titer (Neg:<1:20); Gamma Globulin 0.8 g/dL (0.4-1.8); Immunoglobulin A 491 mg/dL (90-386); Immunoglobulin G 833 mg/dL (603-1613); Immunoglobulin M 50 mg/dL (20-172); PROEL- TOTAL PROTEIN 5.1 g/dL (6.0-8.5); Perinuclear Ab (P-ANCA) <1:20 titer (Neg:<1:20); QNTFERON TB Mitogen Value 1.84 IU/mL (.); QNTFERON TB Nil Value 0.64 IU/mL (.); QNTFERON TB1+ Ag Value 0.69 IU/mL (.); QNTFERON TB2+ Ag Value 0.69 IU/mL (.); QNTIFERON TB Positive Criteria Negative (Negative)
== END 2023-02-01 12:57 | disposition skilled nursing facility (03) | DRG 872 ==
LOC: ED 21:35 → ICU 21:55 → MS3 01-29 13:56
PROVIDERS: Internal Medicine Gastroenterology; Admitting Provider Hospitalist; Emergency Provider Emergency Medicine; PCP Family Medicine; Visit Provider Internal Medicine
DX: A41.59 Other Gram-negative sepsis (principal); I85.00 Esophageal varices without bleeding; I24.89 Other forms of acute ischemic heart disease; K76.6 Portal hypertension; D62 Acute posthemorrhagic anemia; N17.9 Acute kidney failure, unspecified; T83.511A Infection and inflammatory reaction due to indwelling urethral catheter, initial encounter; Z94.0 Kidney transplant status; R18.8 Other ascites; N30.00 Acute cystitis without hematuria; N18.32 Chronic kidney disease, stage 3b; I48.0 Paroxysmal atrial fibrillation; K74.60 Unspecified cirrhosis of liver; I12.9 Hypertensive chronic kidney disease with stage 1 through stage 4 chronic kidney disease, or unspecified chronic kidney disease; F32.A Depression, unspecified; K81.9 Cholecystitis, unspecified; K82.8 Other specified diseases of gallbladder; I25.10 Atherosclerotic heart disease of native coronary artery without angina pectoris; N25.89 Other disorders resulting from impaired renal tubular function; B96.1 Klebsiella pneumoniae [K. pneumoniae] as the cause of diseases classified elsewhere; F79 Unspecified intellectual disabilities
CPT/HCPCS: 36415; 51702; 71045; 71250; 74176; 76705; 78227; 80048; 80053; 81001; 82390; 82525; 82550; 82728; 82784; 82962; 83516; 83540; 83550; 83605; 83880; 84165; 84484; 85025; 85610; 85730; 86225; 86235; 86256; 86334; 86480; 86645; 86663; 86665; 86850; 86900; 86901; 86920; 86922; 87040; 87077; 87086; 87088; 87186; 87449; 87641; 87811; 92524; 93005; 93306; 97110; 97162; 97166; 97530; 97535; 97802; 99285; A9537; J7030; J7050; P9016; P9612; A4216; J2805

== ENCOUNTER → 2023-02-16 | Outpatient (REF) | payer MEDICARE, MEDICAID, SELFPAY ==
[2023-02-16 08:57] LABS: Hematocrit 34.2 % (40-54); Hemoglobin 10.2 g/dL (13.0-16.5); Mean Corp Hgb Conc 29.8 g/dL (32-36); Mean Corpuscular Hgb 25.1 pg (27.0-32.0); Mean Corpuscular Volume 84.2 fL (80-94); Mean Platelet Vol. 10.8 fl (6.2-12.0); Platelet Count 265 K/mm3 (150-450); RBC Distribution Width CV 17.8 % (11.6-14.6); RBC Distribution Width SD 54.8 fl (35.1-43.9); Red Blood Count 4.06 M/mm3 (4.6-6.2); White Blood Count 3.5 K/mm3 (4.4-11.0)
[2023-02-16 09:30] LABS: Anion Gap 6 (5-15); BUN 23 mg/dL (7-18); BUN/Creat Ratio 15.1 RATIO (10-20); Calcium,Total 8.2 mg/dL (8.5-10.1); Chloride 113 mmol/L (98-107); Creatinine, Serum 1.52 mg/dL (0.70-1.30); EST Glomerular Filtration Rate 51 mL/min (>60); Est Glom Filt Rate - Afr Amer 61 mL/min (>60); Glucose 94 mg/dL (74-106); Potassium 4.2 mmol/L (3.5-5.1); Sodium Level 142 mmol/L (136-145); Uric Acid 8.2 mg/dL (3.5-7.2)
== END ==
LOC: OLS.SW 05:00
PROVIDERS: PCP Family Medicine; Visit Provider Family Medicine
DX: D64.9 Anemia, unspecified (principal); K72.10 Chronic hepatic failure without coma; N18.32 Chronic kidney disease, stage 3b
CPT/HCPCS: 36415; 80048; 82140; 84550; 85027

== ENCOUNTER → 2023-03-02 | Outpatient (REF) | payer MEDICARE, SELFPAY ==
[2023-03-02 08:29] LABS: Hemoglobin 9.9 g/dL (13.0-16.5); Mean Corp Hgb Conc 30.9 g/dL (32-36); Mean Corpuscular Hgb 24.6 pg (27.0-32.0); Mean Corpuscular Volume 79.6 fL (80-94); Mean Platelet Vol. 11.4 fl (6.2-12.0); Platelet Count 136 K/mm3 (150-450); RBC Distribution Width CV 18.3 % (11.6-14.6); RBC Distribution Width SD 52.9 fl (35.1-43.9); Red Blood Count 4.02 M/mm3 (4.6-6.2); White Blood Count 5.1 K/mm3 (4.4-11.0)
[2023-03-02 08:43] LABS: Anion Gap 4 (5-15); BUN 23 mg/dL (7-18); BUN/Creat Ratio 14.6 RATIO (10-20); Calcium,Total 7.9 mg/dL (8.5-10.1); Chloride 114 mmol/L (98-107); Creatinine, Serum 1.58 mg/dL (0.70-1.30); EST Glomerular Filtration Rate 49 mL/min (>60); Est Glom Filt Rate - Afr Amer 59 mL/min (>60); Glucose 89 mg/dL (74-106); Potassium 4.3 mmol/L (3.5-5.1); Sodium Level 140 mmol/L (136-145); Uric Acid 7.3 mg/dL (3.5-7.2)
== END ==
LOC: OLS.SW 05:00
PROVIDERS: PCP Family Medicine; Visit Provider Family Medicine
DX: K72.10 Chronic hepatic failure without coma (principal); N18.32 Chronic kidney disease, stage 3b; Z94.0 Kidney transplant status; E78.5 Hyperlipidemia, unspecified
CPT/HCPCS: 36415; 80048; 82140; 84550; 85027

== ENCOUNTER → 2023-03-09 | Outpatient (REF) | payer MEDICARE, MEDICAID, SELFPAY | LOC: OLS.SW 05:00 | PROVIDERS: PCP Family Medicine; Visit Provider Family Medicine | DX: K72.10 Chronic hepatic failure without coma (principal); I12.9 Hypertensive chronic kidney disease with stage 1 through stage 4 chronic kidney disease, or unspecified chronic kidney disease; N18.32 Chronic kidney disease, stage 3b | CPT/HCPCS: 36415; 82140 ==

== ENCOUNTER → 2023-03-16 | Outpatient (REF) | payer MEDICARE, MEDICAID, SELFPAY ==
[2023-03-16 09:54] LABS: Hematocrit 35.1 % (40-54); Hemoglobin 10.5 g/dL (13.0-16.5); Mean Corp Hgb Conc 29.9 g/dL (32-36); Mean Corpuscular Hgb 23.9 pg (27.0-32.0); Mean Platelet Vol. 11.4 fl (6.2-12.0); Platelet Count 221 K/mm3 (150-450); RBC Distribution Width CV 18.7 % (11.6-14.6); RBC Distribution Width SD 53.8 fl (35.1-43.9); Red Blood Count 4.39 M/mm3 (4.6-6.2); White Blood Count 4.2 K/mm3 (4.4-11.0)
[2023-03-16 10:04] LABS: Anion Gap 8 (5-15); BUN 26 mg/dL (7-18); BUN/Creat Ratio 15.2 RATIO (10-20); Calcium,Total 7.6 mg/dL (8.5-10.1); Chloride 115 mmol/L (98-107); Creatinine, Serum 1.71 mg/dL (0.70-1.30); EST Glomerular Filtration Rate 44 mL/min (>60); Est Glom Filt Rate - Afr Amer 54 mL/min (>60); Glucose 138 mg/dL (74-106); Sodium Level 143 mmol/L (136-145); Uric Acid 8.2 mg/dL (3.5-7.2)
== END ==
LOC: OLS.SW 07:30
PROVIDERS: PCP Family Medicine; Visit Provider Family Medicine
DX: D64.9 Anemia, unspecified (principal); N18.32 Chronic kidney disease, stage 3b
CPT/HCPCS: 36415; 80048; 82140; 84550; 85027

== ENCOUNTER → 2023-03-23 | Outpatient (REF) | payer MEDICARE, MEDICAID, SELFPAY | LOC: OLS.SW 05:00 | PROVIDERS: PCP Family Medicine; Visit Provider Family Medicine | DX: R79.89 Other specified abnormal findings of blood chemistry (principal) | CPT/HCPCS: 36415; 82140 ==

== ENCOUNTER → 2023-03-30 | Outpatient (REF) | payer MEDICARE, MEDICAID, SELFPAY ==
[2023-03-30 09:53] LABS: Hematocrit 33.5 % (40-54); Mean Corp Hgb Conc 29.9 g/dL (32-36); Mean Corpuscular Hgb 23.8 pg (27.0-32.0); Mean Corpuscular Volume 79.8 fL (80-94); Mean Platelet Vol. 11.6 fl (6.2-12.0); Platelet Count 126 K/mm3 (150-450); RBC Distribution Width CV 18.9 % (11.6-14.6); RBC Distribution Width SD 54.5 fl (35.1-43.9); White Blood Count 3.5 K/mm3 (4.4-11.0)
[2023-03-30 10:28] LABS: Anion Gap 7 (5-15); BUN 19 mg/dL (7-18); BUN/Creat Ratio 11.2 RATIO (10-20); Calcium,Total 7.9 mg/dL (8.5-10.1); Chloride 115 mmol/L (98-107); EST Glomerular Filtration Rate 45 mL/min (>60); Est Glom Filt Rate - Afr Amer 54 mL/min (>60); Glucose 112 mg/dL (74-106); Potassium 4.1 mmol/L (3.5-5.1); Sodium Level 141 mmol/L (136-145); Uric Acid 7.7 mg/dL (3.5-7.2)
== END ==
LOC: OLS.SW 05:00
PROVIDERS: PCP Family Medicine; Visit Provider Family Medicine
DX: K72.10 Chronic hepatic failure without coma (principal); I12.9 Hypertensive chronic kidney disease with stage 1 through stage 4 chronic kidney disease, or unspecified chronic kidney disease; N18.9 Chronic kidney disease, unspecified; Z94.0 Kidney transplant status
CPT/HCPCS: 36415; 80048; 82140; 84550; 85027

== ENCOUNTER → 2023-04-13 | Outpatient (REF) | payer MEDICARE, MEDICAID, SELFPAY ==
[2023-04-13 09:06] LABS: Hematocrit 33.4 % (40-54); Hemoglobin 10.1 g/dL (13.0-16.5); Mean Corp Hgb Conc 30.2 g/dL (32-36); Mean Corpuscular Hgb 23.6 pg (27.0-32.0); Platelet Count 130 K/mm3 (150-450); RBC Distribution Width CV 19.9 % (11.6-14.6); RBC Distribution Width SD 56.1 fl (35.1-43.9); Red Blood Count 4.28 M/mm3 (4.6-6.2); White Blood Count 3.7 K/mm3 (4.4-11.0)
[2023-04-13 09:45] LABS: Anion Gap 8 (5-15); BUN 25 mg/dL (7-18); BUN/Creat Ratio 15.7 RATIO (10-20); Calcium,Total 8.1 mg/dL (8.5-10.1); Chloride 114 mmol/L (98-107); Creatinine, Serum 1.59 mg/dL (0.70-1.30); EST Glomerular Filtration Rate 48 mL/min (>60); Est Glom Filt Rate - Afr Amer 58 mL/min (>60); Glucose 90 mg/dL (74-106); Potassium 4.1 mmol/L (3.5-5.1); Sodium Level 141 mmol/L (136-145); Uric Acid 7.5 mg/dL (3.5-7.2)
== END ==
LOC: OLS.SW 06:25
PROVIDERS: PCP Family Medicine; Visit Provider Family Medicine
DX: K72.10 Chronic hepatic failure without coma (principal); R65.21 Severe sepsis with septic shock; Z94.0 Kidney transplant status
CPT/HCPCS: 36415; 80048; 82140; 84550; 85027

== ENCOUNTER → 2023-04-27 04:00 | Outpatient (REF) | payer MEDICARE, MEDICAID, SELFPAY ==
[2023-04-27 08:52] LABS: Hematocrit 36.1 % (40-54); Hemoglobin 10.7 g/dL (13.0-16.5); Mean Corp Hgb Conc 29.6 g/dL (32-36); Mean Corpuscular Volume 77.5 fL (80-94); POSITIVE MORPHOLOGY YES; Platelet Count 136 K/mm3 (150-450); RBC Distribution Width CV 20.8 % (11.6-14.6); RBC Distribution Width SD 57.3 fl (35.1-43.9); Red Blood Count 4.66 M/mm3 (4.6-6.2); White Blood Count 4.1 K/mm3 (4.4-11.0)
[2023-04-27 09:01] LABS: Scan Indicated on CBC? Y/N YES- FLAGS NOTED
[2023-04-27 09:08] LABS: Anion Gap 5 (5-15); BUN 21 mg/dL (7-18); BUN/Creat Ratio 12.2 RATIO (10-20); Calcium,Total 8.2 mg/dL (8.5-10.1); Chloride 114 mmol/L (98-107); Creatinine, Serum 1.72 mg/dL (0.70-1.30); EST Glomerular Filtration Rate 44 mL/min (>60); Est Glom Filt Rate - Afr Amer 53 mL/min (>60); Glucose 97 mg/dL (74-106); Potassium 4.1 mmol/L (3.5-5.1); Sodium Level 141 mmol/L (136-145)
[2023-04-27 09:37] LABS: Differential Comment SCANNED
--- OUTSIDE RECORDS SUMMARY | 2023-04-28 18:14 | XMS RPT_ITS | CCD ---
Author Name Unknown Address [address] [place] [address] Organization [facility] Care Team Providers Care Server Name Role Phone Sara Angel Unavailable Unavailable Isac Thao Unavailable Unavailable Unknown, Referring Provider Unavailable Unav ailable Unknown, Referring Provider Unavailable Unav ailable Unavailable Unavailable Medications Completed/Discontinued Medications Medication Drug Class(es) Dates Sig (Normalized) Sig (Original) amLODIPine 5 mg oral tablet (5 sources) Dihydropyridine Calcium Channel Emre Start: 08-13-2016 take 1 tablet by mouth at bedtime amLODIPine Besylate 5 MG Oral Tablet TAKE 1 TABLET BY MOUTH AT BEDTIME. Quantity: 30 Refills: 1 Ordered: 22-Jan-2021 Renea Jackson MD Start : 13-Aug-2016 Active Patient needs appointment for further refills. apixaban 2.5 mg oral tablet (1 source) Factor Xa Inhibitor Start: 03-15-2018 take 1 tablet by mouth twice daily Eliquis 2.5 MG Oral Tablet 1 tablet bid Refills: 0 Sara Angel MD Start : 15-Mar-2018 Active lactobacillus acidophilus [id number] unt oral capsule (1 source) Start: 03-15-2018 Acidophilus Oral Capsule TAKE DIRECTED 2 times qd Refills: 0 Sara Angel MD Start : 15-Mar-2018 Active Multivitamins TABS (1 source) Multivitamins TA BS TAKE 1 TABLET DAILY. Refills: 0 DO Active mycophenolate mofetil 500 mg oral tablet (5 sources) Start: 07-31-2019 take 1 tablet by mouth twice daily Mycophenolate Mofetil 500 MG Oral Tablet Take 1 tablet twice daily Quantity: 60 Refills: 11 Ordered: 31-Jul-2019 1[employer] M.D., Provider Start : 31-Jul-2019 Active Problems Active Problems Problem Classification Problem Date Documented Da te Episodic/Chronic Chronic kidney disease (13 sources) Chronic kidney disease stage 3; Translations: [End-stage renal disease] Chronic Coronary atherosclerosis and other heart disease (2 sources) Coronary arteriosclerosis; Translations: [Coronary atherosclerosis of unspecified type of vessel, [place] or graft] Chronic Essential hypertension (5 sources) Hypertensive disorder; Translations: [Unspecified essential hypertension] Chronic Immunity disorders (5 sources) Immunosuppression; Translations: [Unspecified disorder of immune mechanism] Chronic Other aftercare (2 sources) Drug therapy finding; Translations: [Long-term (current) use of other medications] Episodic Other diseases of bladder and urethra (5 sources) Bladder muscle dysfunction - underactive; Translations: [[place] of bladder] Chronic Other gastrointestinal disorders (5 sources) Constipation; Translations: [Constipation, unspecified] Episodic Other skin disorders (4 sources) Eruption; Translations: [Rash and other nonspecific skin eruption] Episodic Phlebitis; thrombophlebitis and thromboembolism (5 sources) Deep venous thrombosis; Translations: [Acute venous embolism and thrombosis of unspecified deep vessels of lower extremity] Episodic Urinary tract infections (5 sources) Recurrent urinary tract infection; Translations: [Urinary tract infection, site not specified] Episodic Past or Other Problems Problem Classification Problem Date Documented Da te Episodic/Chronic Unclassified (3 sources) Drug therapy finding; Translations: [High risk medication use] Unclassified (3 sources) Patient encounter status; Translations: [Pre-transplant evaluation for ESRD (end stage renal disease)] NEGATED: Highlighted row has not occurred!Residual codes; unclassified (18 sources) Disease Episodic Results Test Name Value Interpretation Reference Range Facil ity Vital Signs Date Time Vital Sign Value Performing Clinician Jorge Alberto lyons 07-11-2019 13:05-0400 BP Diastolic 86 mm[Hg] Sara Padiyar [facility]-Vjykykjkmp-Ux th er Work Phone: 07-11-2019 13:05-0400 BP Systolic 142 mm[Hg] Sara Padiyar ZZ-Hejcwydbcl-Zs th er Work Phone: 07-11-2019 13:05-0400 Pulse (Heart Rate) 81 /min Sara Padiyar [facility] Work Phone: 07-11-2019 12:18-0400 BMI (Body Mass Index) 25.86 kg/m2 Sara Padiyar [facility]-Transpl ant-Math er Work Phone: 07-11-2019 12:18-0400 Body Temperature 98.4 [degF] Sara Padiyar XC-Smpqgkmaue-H ath er Work Phone: Encounters Encounter Date Encounter Type Care Provider Facility Start: 01-23-2021 AUDIT Referring Prov ider Unknown GL-Rxhjfhcafm-Poprul Work Phone: Start: 02-07-2020 Office outpatient vi sit 25 minutes Referring Provider Unknown QI-Llnyflvkwk-TFK [facility] [address] Work Phone: Start: 07-11-2019 Patient encounter procedure Sara Padiyar QX-Kqkfstkmmn-Tmkznd Work Phone: Start: 01-10-2019 Patient encounter procedure Sara Padiyar EJ-Lgvbinutyy-Dxsann Work Phone: Start: 07-13-2018 Patient encounter procedure Sara Padiyar AN-Bfdmhqgwew-Uuwqit Work Phone: Start: 04-14-2018 Patient encounter procedure Sara Padiyar KA-Cpgkeiiqtl-Eteqds Work Phone: Start: 03-15-2018 Patient encounter procedure Sara Padiyar ZA-Syifvssflw-Chjtia Work Phone: Start: 11-23-2017 Patient encounter procedure Sara Padiyar RF-Dkhzrmkcyu-Qpfxdo Work Phone: Start: 07-06-2017 Patient encounter procedure Sara Padiyar FY-Okuazownuh-Ynrefk Work Phone: Patient encounter status Referri ng Provider Unknown KV-Gwnesgpnyj-JLV [facility] [address] Work Phone: Procedures Date Procedure Procedure Detail Performing Clinician Start: 07-11-2019 Blood count complete auto&auto difrntl wbc Sara Padiyar Start: 07-11-2019 Creatinine other source Sara Padiyar Start: 07-11-2019 Protein total xcpt refractometry urine Sara Padiyar Arteriovenous anasto mosis for renal dialysis Sara Padiyar History of renal transplant Kidney replaced by transplant Referring Provider Unknown Payers Date Payer Category Payer Policy ID Unknown Social History Date Type Detail Facility Never smoker Never smoker ER-Cankwjrtit-Z FELIX Parra [address] Work Phone: NEGATED: Highlighted row - - [facility]- Transplant-[facility] Work Phone: Functional Status Date Assessment Result Facility NEGATED: Highlighted row Functional performance Functional status health issues are not documented Disease HP-Avvwttjjkt-Bwvnf r Work Phone: Mental Status Date Assessment Result Facility NEGATED: Highlighted row Cognitive function [Interpretation] Cognitive status health issues are not documented Disease YY-Ismzzjlhow-Ynqdk r Work Phone: History of Present illness Narrative 03-29-2016 Note Date & Type Note Facility 03-29-2016 History of Present illness Narrative Ethnicity: White: Not Specified/Unknown.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 Baseline creatinine had been around 1.4-1.6.Patient is doing well overall. No new complaints. Denied chest pain, SOB, GALINDO, Palpitation. Normal urination and bowel movement. Normal gait and no weakness of arms/legs. No cough, runny nose, sore throat, cold symptoms, or rash. No hearing loss. Normal vision.No problems with his sleep, mood and function. No recent infection, hospitalization, surgery or ER visits.ROS : Review of system (14 systems) was done. See HPI. Otherwise were negative.Past medical Hx, Past Surgical Hx were reviewed. Pertinent history was mentioned in HPI.Family hx - no family hx of kidney diseaseSocial hx - no hx of active smoking , alcohol and drug abuseCurrent med list and allergy hx - were reviewed HA-Suukibibwb-UHP Aida Daniels Work Phone: Summary Purpose Family History Mother Name Dates Details Family history of osteoporos is(V17.81, Z82.62) Status:Active Mother Name Dates Details Family history of osteoporos is(V17.81, Z82.62) Status:Active Mother Name Dates Details Family history of osteoporos is(V17.81, Z82.62) Status:Active Unknown Family Member Name Dates Details Family history of osteoporos is: Mother(V17.81, Z82.62) Status:Active Unknown Family Member Name Dates Details Family history of osteoporos is: Mother(V17.81, Z82.62) Status:Active Advance Directives No Advanced Directives Records FoundNo Advanced Directives Records Found Chief Complaint Patient is here to follow up S/P kidney transplant surgery Additional Source Comments (unrecognized sect ion and content) No Status Records FoundNo Status Records Found INFORMATION SOURCE (unrecogn ized section and content) DATE CREATED AUTHOR AUTHOR'S ORGANIZ ATION 02/07/2020 [facility], [place], operated by [facility] FOR RECORDS PERTAINING TO PATIENTS WHO ARE OR HAVE BEEN ENROLLED IN A CHEMICAL DEPENDENCY/SUBSTANCEABUSE PROGRAM, SOME INFORMATION MAY BE OMITTED. This clinical summary was aggregated from multiple sources. Caution should be exercised in using it in the provision of clinical care. This summary normalizes information from multiple sources, and as a consequence, information in this document may materially change the coding, format and clinical context of patient data. In addition, data may be omitted in some cases. CLINICAL DECISIONS SHOULD BE BASED ON THE PRIMARY CLINICAL RECORDS. [email or web address] provides no warranty or guarantee of the accuracy or completeness of information in this document.
== END ==
LOC: OLS.SW 04:00
PROVIDERS: PCP Family Medicine; Visit Provider Family Medicine
DX: A41.9 Sepsis, unspecified organism (principal); K72.10 Chronic hepatic failure without coma; Z94.0 Kidney transplant status
CPT/HCPCS: 36415; 80048; 82140; 84550; 85027

== ENCOUNTER → 2023-05-11 | Outpatient (REF) | payer MEDICARE, SELFPAY ==
--- OUTSIDE RECORDS SUMMARY | 2023-05-11 04:48 | XMS RPT_ITS | CCD ---
Author Name Unknown Address [address] [place] [address] Organization [facility] Care Team Providers Care Clinical Pharmacy Manager Name Role Phone Sara Angel Unavailable Unavailable [...] MD Start : 15-Mar-2018 Active lactobacillus acidophilus [id number] unt oral capsule (1 source) Start: 03-15-2018 [...] [Coronary atherosclerosis of unspecified type of vessel, [place] or graft] Chronic Essential hypertension (5 sources) [...] 13:05-0400 BP Diastolic 86 mm[Hg] Sara Padiyar FQ-Qgvqoynmhd-Qf th er Work Phone: 07-11-2019 13:05-0400 BP Systolic 142 mm[Hg] Sara Padiyar GM-Gwopbxymdr-Za th er Work Phone: 07-11-2019 13:05-0400 Pulse (Heart Rate) 81 /min Sara Padiyar MG-Transplant -[facility] er Work Phone: 07-11-2019 12:18-0400 BMI (Body Mass Index) 25.86 kg/m2 Sara Padiyar MG-Transpl ant-Math er Work Phone: 07-11-2019 12:18-0400 Body Temperature 98.4 [degF] Sara Padiyar TB-Fyojrmbmjo-E ath er Work Phone: Encounters Encounter Date Encounter Type Care Provider Facility Start: 01-23-2021 AUDIT Referring Prov ider Unknown XP-Qhgflqxefp-Cktdex Work Phone: Start: 02-07-2020 Office outpatient vi sit 25 minutes Referring Provider Unknown NB-Agzrfycfdm-[facility] [place] [address] Work Phone: Start: 07-11-2019 Patient encounter procedure Sara Padiyar SM-Mkcubzuqir-Rimrhg Work Phone: Start: 01-10-2019 Patient encounter procedure Sara Padiyar WR-Tdsdxyrbub-Gsdqam Work Phone: Start: 07-13-2018 Patient encounter procedure Sara Padiyar RB-Zwyuxvnyiz-Lgczim Work Phone: Start: 04-14-2018 Patient encounter procedure Sara Padiyar ZY-Bpmupnxcvp-Seabvq Work Phone: Start: 03-15-2018 Patient encounter procedure Sara Padiyar ZE-Pfdpmuntrf-Rmzjtv Work Phone: Start: 11-23-2017 Patient encounter procedure Sara Padiyar JI-Rgcittubyz-Yxcrym Work Phone: Start: 07-06-2017 Patient encounter procedure Sara Padiyar VD-Rymdhzrlzb-Cnnmor Work Phone: Patient encounter status Referri ng Provider Unknown FR-Tvqquaaouy-UAV [place] [facility] Work Phone: Procedures Date Procedure Procedure [...] Type Detail Facility Never smoker Never smoker ND-Bkllpangis-V [facility] [facility] Work Phone: NEGATED: Highlighted row - - MG- Transplant-[facility] Work Phone: Functional Status Date Assessment Result Facility NEGATED: Highlighted row Functional performance Functional status health issues are not documented Disease WC-Hbeiczntky-Sczkb r Work Phone: Mental Status Date Assessment Result Facility NEGATED: Highlighted row Cognitive function [Interpretation] Cognitive status health issues are not documented Disease NR-Jcmvjztoqw-Mlcbc r Work Phone: History of Present illness [...] list and allergy hx - were reviewed KQ-Hsyxwhpvkk-WMP [facility] Daniels Work Phone: Summary Purpose Family [...] DATE CREATED AUTHOR AUTHOR'S ORGANIZ ATION 02/07/2020 [facility] FOR RECORDS PERTAINING TO PATIENTS WHO ARE [...] BE BASED ON THE PRIMARY CLINICAL RECORDS. [employer] provides no warranty or guarantee of the accuracy or completeness of information in this document.
[2023-05-11 08:16] LABS: Hematocrit 35.7 % (40-54); Hemoglobin 10.7 g/dL (13.0-16.5); Mean Corpuscular Hgb 22.9 pg (27.0-32.0); Mean Corpuscular Volume 76.3 fL (80-94); POSITIVE MORPHOLOGY YES; Platelet Count 106 K/mm3 (150-450); RBC Distribution Width CV 20.8 % (11.6-14.6); RBC Distribution Width SD 56.8 fl (35.1-43.9); Red Blood Count 4.68 M/mm3 (4.6-6.2); White Blood Count 4.2 K/mm3 (4.4-11.0)
[2023-05-11 08:21] LABS: Scan Indicated on CBC? Y/N YES- FLAGS NOTED
[2023-05-11 08:56] LABS: Anion Gap 8 (5-15); BUN 23 mg/dL (7-18); BUN/Creat Ratio 12.5 RATIO (10-20); Calcium,Total 8.2 mg/dL (8.5-10.1); Chloride 114 mmol/L (98-107); Creatinine, Serum 1.84 mg/dL (0.70-1.30); EST Glomerular Filtration Rate 41 mL/min (>60); Est Glom Filt Rate - Afr Amer 49 mL/min (>60); Glucose 103 mg/dL (74-106); Potassium 4.4 mmol/L (3.5-5.1); Sodium Level 141 mmol/L (136-145); Uric Acid 8.2 mg/dL (3.5-7.2)
[2023-05-11 09:01] LABS: Differential Comment SCANNED
== END ==
LOC: OLS.SW 05:00
PROVIDERS: PCP Family Medicine; Visit Provider Family Medicine
DX: K72.10 Chronic hepatic failure without coma (principal); Z94.0 Kidney transplant status
CPT/HCPCS: 36415; 80048; 82140; 84550; 85027

== ENCOUNTER → 2023-05-25 | Outpatient (REF) | payer MEDICARE, MEDICAID, SELFPAY ==
[2023-05-25 09:07] LABS: Hematocrit 39.8 % (40-54); Hemoglobin 12.1 g/dL (13.0-16.5); Mean Corp Hgb Conc 30.4 g/dL (32-36); Mean Corpuscular Hgb 23.5 pg (27.0-32.0); Mean Corpuscular Volume 77.3 fL (80-94); Mean Platelet Vol. 10.8 fl (6.2-12.0); POSITIVE MORPHOLOGY YES; Platelet Count 202 K/mm3 (150-450); RBC Distribution Width CV 21.2 % (11.6-14.6); Red Blood Count 5.15 M/mm3 (4.6-6.2); White Blood Count 4.3 K/mm3 (4.4-11.0)
[2023-05-25 09:10] LABS: Scan Indicated on CBC? Y/N YES- FLAGS NOTED
[2023-05-25 09:55] LABS: Differential Comment SCANNED
[2023-05-25 11:05] LABS: Anion Gap 8 (5-15); BUN 18 mg/dL (7-18); BUN/Creat Ratio 9.4 RATIO (10-20); Calcium,Total 8.5 mg/dL (8.5-10.1); Chloride 113 mmol/L (98-107); Creatinine, Serum 1.91 mg/dL (0.70-1.30); EST Glomerular Filtration Rate 39 mL/min (>60); Est Glom Filt Rate - Afr Amer 47 mL/min (>60); Glucose 135 mg/dL (74-106); Sodium Level 140 mmol/L (136-145); Uric Acid 8.7 mg/dL (3.5-7.2)
== END ==
LOC: OLS.SW 05:00
PROVIDERS: PCP Family Medicine; Visit Provider Family Medicine
DX: E79.0 Hyperuricemia without signs of inflammatory arthritis and tophaceous disease (principal); I12.9 Hypertensive chronic kidney disease with stage 1 through stage 4 chronic kidney disease, or unspecified chronic kidney disease; N18.9 Chronic kidney disease, unspecified; Z94.0 Kidney transplant status; K72.90 Hepatic failure, unspecified without coma
CPT/HCPCS: 36415; 80048; 82140; 84550; 85027

== ENCOUNTER → 2023-06-18 | Outpatient (CLI) | payer MEDICARE, MEDICAID, SELFPAY ==
--- OUTSIDE RECORDS SUMMARY | 2023-06-18 16:56 | XMS RPT_ITS | CCD ---
Author Name Unknown Address [address] [place] [address] Organization [facility] Care Team Providers Care K [employer] Police Officer Name Role Phone Sara Angel Unavailable Unavailable [...] MD Start : 15-Mar-2018 Active lactobacillus acidophilus [id number] unt oral capsule (1 source) Start: 03-15-2018 [...] [Coronary atherosclerosis of unspecified type of vessel, [place] or graft] Chronic Essential hypertension (5 sources) [...] 13:05-0400 BP Diastolic 86 mm[Hg] Sara Padiyar PS-Niaqeticnr-Pu th er Work Phone: 07-11-2019 13:05-0400 BP Systolic 142 mm[Hg] Sara Padiyar KL-Anfcickgip-Sx th er Work Phone: 07-11-2019 13:05-0400 Pulse (Heart Rate) 81 /min Sara Padiyar MG-Transplant -[facility] er Work Phone: 07-11-2019 12:18-0400 BMI (Body Mass Index) 25.86 kg/m2 Sara Padiyar MG-Transpl ant-Math er Work Phone: 07-11-2019 12:18-0400 Body Temperature 98.4 [degF] Sara Padiyar YJ-Dxbpkiuypk-L ath er Work Phone: Encounters Encounter Date Encounter Type Care Provider Facility Start: 01-23-2021 AUDIT Referring Prov ider Unknown QL-Ltingexpdp-Vlunzt Work Phone: Start: 02-07-2020 Office outpatient vi sit 25 minutes Referring Provider Unknown CN-Ukrdfazgtj-[facility] [place] [facility] Work Phone: Start: 07-11-2019 Patient encounter procedure Sara Padiyar JE-Dxzhwmjmes-Muqtjc Work Phone: Start: 01-10-2019 Patient encounter procedure Sara Padiyar IC-Jbkvqmzfee-Vvtnpp Work Phone: Start: 07-13-2018 Patient encounter procedure Sara Padiyar YV-Bkcfutuzzf-Cneqbc Work Phone: Start: 04-14-2018 Patient encounter procedure Sara Padiyar WQ-Hcfxwelsjn-Yxzfam Work Phone: Start: 03-15-2018 Patient encounter procedure Sara Padiyar HI-Lgrkwwnjri-Dxhdxx Work Phone: Start: 11-23-2017 Patient encounter procedure Sara Padiyar MG-Xkmrenfvrx-Jmcmrj Work Phone: Start: 07-06-2017 Patient encounter procedure Sara Padiyar OO-Feibiylfab-Xhfskt Work Phone: Patient encounter status Referri ng Provider Unknown PF-Mxiuvndphh-VPN [place] 1800 Work Phone: Procedures Date Procedure Procedure [...] Type Detail Facility Never smoker Never smoker CE-Bvetebhwki-W [facility] [address] Work Phone: NEGATED: Highlighted row - - MG- Transplant-[facility] Work Phone: Functional Status Date Assessment Result Facility NEGATED: Highlighted row Functional performance Functional status health issues are not documented Disease WM-Ttcpocetyc-Zfuph r Work Phone: Mental Status Date Assessment Result Facility NEGATED: Highlighted row Cognitive function [Interpretation] Cognitive status health issues are not documented Disease EO-Cwnxnjaeev-Bknfo r Work Phone: History of Present illness [...] list and allergy hx - were reviewed IG-Cdhixopube-CXN [facility] Daniels Work Phone: Summary Purpose Family [...] DATE CREATED AUTHOR AUTHOR'S ORGANIZ ATION 02/07/2020 [facility] FOR RECORDS PERTAINING TO [...] BE BASED ON THE PRIMARY CLINICAL RECORDS. [employer] provides no warranty or guarantee of the accuracy or completeness of information in this document.
== END | disposition home or self-care (01) ==
LOC: MTLAB 14:55
PROVIDERS: PCP Family Medicine; Referring Provider Nurse Practitioner Family; Visit Provider Nurse Practitioner Family
DX: E72.20 Disorder of urea cycle metabolism, unspecified (principal)
CPT/HCPCS: 36415; 82140

== ENCOUNTER → 2023-07-02 | Outpatient (REF) | payer MEDICARE, MEDICAID, SELFPAY | PROVIDERS: PCP Family Medicine; Referring Provider Family Medicine; Visit Provider Family Medicine | DX: I12.9 Hypertensive chronic kidney disease with stage 1 through stage 4 chronic kidney disease, or unspecified chronic kidney disease (principal); N18.9 Chronic kidney disease, unspecified; K72.10 Chronic hepatic failure without coma; N17.9 Acute kidney failure, unspecified | CPT/HCPCS: 82140 ==

== ENCOUNTER 2023-07-25 19:10 | Observation (INO) | payer MEDICARE, SELFPAY ==
[2023-07-25 19:12] VITALS: BP 142/87; PULSE 91; RESP 18; TEMP 37.3; O2SAT 96; BMI 30.4
--- NOTE | 2023-07-25 19:16 | EKG12_ITS ---
Test Reason : DYSRHYTHMIA Blood Pressure : / mmHG Vent. Rate : 089 BPM Atrial Rate : 089 BPM P-R Int : 162 ms QRS Dur : 096 ms QT Int : 414 ms P-R-T Axes : 058 004 052 degrees QTc Int : 503 ms Normal sinus rhythm Abnormal ECG Confirmed by RAEANN DAVIS MD ([id number]), editor news CARLOS GARCIA ([id number]) on 07/26/2023 9:24:06 AM Referred By: ROSCOE Confirmed By:RAEANN DAVIS MD
--- NOTE | 2023-07-25 19:24 | EX.ED.DYSGE1 ---
HPI <JASS Gavin - Last Filed: 07/25/23 22:22> History of Present Illness Chief Complaint: Chest Pain Narrative Narrative: Patient is a 58-year-old male with history of MR, A-fib, PE, history of kidney transplant who lives at assisted living presenting to the emergency department for dizziness, intermittent chest pain throughout the day today. Patient had chest pain this morning, he had a dizziness episode, then before dinner tonight he had worsening upper and mid chest pain. He was brought in by EMS. Patient appears alert, is acting appropriate for family. Patient does answer questions appropriately. [facility] <JASS Gavin - Last Filed: 07/25/23 22:22> [facility] Medical History (Updated 07/25/23 @ 23:[address] Dillon Harrison MD) Anemia in chronic illness Bladder dysfunction Bronchitis Chronic kidney disease, stage 3b CKD (chronic kidney disease), stage III Congenital nystagmus DVT (deep venous thrombosis) History of DVT (deep vein thrombosis) History of encephalopathy History of pulmonary embolism HTN (hypertension) Immunosuppressed status Mild intellectual disability Myocardial infarct Neurogenic bladder disorder Neutropenia Pancytopenia Pulmonary embolism Severe protein-calorie malnutrition Urinary retention Vocal cord dysfunction Home Medications mycophenolate mofetil 500 mg tablet 500 mg PO BID TRANSPLANT ANTI-REJECTION 07/14/16 [History Last Taken 01/26/23] multivitamin 1 tab PO DAILY SUPPLEMENT 02/13/22 [History Last Taken 01/26/23] lactulose 20 gram/30 mL oral solution 45 ml PO 4X/DAY hepatic failure 06/13/22 [History Last Taken 01/26/23] rifaximin 550 mg tablet (Xifaxan) 550 mg PO BID ANTIBIOTIC 07/16/22 [History Last Taken 01/26/23] mirtazapine 30 mg tablet 30 mg PO QHS DEPRESSION 11/01/22 [History Last Taken 01/25/23] diltiazem HCl 120 mg tablet,extended release 24 hr (Cardizem LA) 120 mg PO DAILY BLOOD PRESSURE #30 tabs 01/01/23 [Rx Last Taken 01/26/23] metoprolol tartrate 25 mg tablet 25 mg PO BID BLOOD PRESSURE #0 tabs 01/01/23 [Rx Last Taken 01/26/23] tacrolimus 0.5 mg capsule, immediate-release 0.5 mg PO BID TRANSPLANT ANTI-REJECTION 01/15/23 [History Last Taken 01/26/23] atorvastatin 40 mg tablet 40 mg PO QHS 07/25/23 [History Last Taken Unknown] pantoprazole 40 mg tablet,delayed release 40 mg PO DAILY 07/25/23 [History Last Taken Unknown] Allergy/AdvReac Type Severity Reaction Status Date / Time red dye Allergy PT UNSURE Verified 07/25/23 19:15 OF REACTION Family History Mother Hypertension Father Diabetes Surgical History (Updated 02/09/23 @ 00:01 by Background Alonso) Kidney transplant recipient Renal transplant recipient S/P arteriovenous (AV) fistula creation Social History household members: none housing: retirement Smoking Status: Never smoker second hand exposure: No alcohol intake: never substance use type: does not use caffeine: No ROS <JASS Gavin - Last Filed: 07/25/23 22:22> ROS ED ROS Narrative Constitutional: Negative for fever, chills, weight loss, weakness Eyes: Negative for vision loss, vision change, double vision ENT: Negative for any sore throat, ear pain, congestion Cardiovascular: Negative for any , tightness, palpitations. Positive chest pain Respiratory: Negative for any cough, sputum production, hemoptysis, dyspnea, dyspnea on exertion, orthopnea Gastrointestinal: Negative for any abdominal pain, nausea, vomiting, diarrhea, constipation, blood in stool, blood in vomit : Negative for any urinary frequency, dysuria, retention, blood in urine Muscle skeletal: Negative for any neck pain, back pain Neurological: Negative for any headache, syncope, dizziness Skin: Negative for any rashes, itching, abrasions, lacerations Psychiatric: Negative for any depression, anxiety, stress, suicidal ideation, homicidal ideation Hematologic: Negative for any excessive bruising, easy bleeding EXAM <JASS Gavin - Last Filed: 07/25/23 22:22> Physical Exam Narrative Exam Narrative: Vital signs reviewed. HEET: Head normocephalic atraumatic, TMs clear bilaterally. Posterior pharynx is clear, moist mucous membranes. Nares clear bilaterally. Neck: Supple with no lymphadenopathy or tenderness. No signs of meningismus. Cardiac: Regular rate and rhythm no murmurs gallops or rubs, equal peripheral pulses bilaterally. Respiratory: Lungs clear to auscultation bilaterally. No chest tenderness. Abdomen: Soft, does appear distended however nontender. Active bowel sounds in all quadrants, no peritoneal signs. Per the sister, this is normal appearance.. No abdominal bruit or pulsatile masses. No hepatosplenomegaly Extremities: No peripheral edema, no signs of gross trauma or deformity. Active full range of motion of all extremities. Neuro: Cranial nerves II through XII intact, no focal neurological deficits. Skin: Clean dry and intact with no rash, purpura, petechiae, vesicles or pustules. Backs/flank: No CVA tenderness, no midline spinal tenderness, no deformity. Psych: Normal mood and affect. No SI, HI or acute psychosis. Const Vital Signs: 07/25/23 19:12 07/25/23 19:16 07/25/23 20:15 Temperature 99.1 F Temperature Source Temporal Pulse Rate 91 Respiratory Rate 18 Respiratory Effort Normal Non-Labored Blood Pressure 142/87 H Blood Pressure Mean 105 Pulse Ox 96 Oxygen Delivery Method Room Air Room Air 07/25/23 20:57 07/25/23 23:00 Temperature Temperature Source Pulse Rate 81 82 Respiratory Rate 18 19 H Respiratory Effort Blood Pressure 145/86 H 142/78 H Blood Pressure Mean 105 99 Pulse Ox 92 94 Oxygen Delivery Method Room Air Room Air <Dr. Dillon Harrison MD - Last Filed: 07/25/23 23:24> Physical Exam Const Vital Signs: 07/25/23 19:12 07/25/23 19:16 07/25/23 20:15 Temperature 99.1 F Temperature Source Temporal Pulse Rate 91 Respiratory Rate 18 Respiratory Effort Normal Non-Labored Blood Pressure 142/87 H Blood Pressure Mean 105 Pulse Ox 96 Oxygen Delivery Method Room Air Room Air 07/25/23 20:57 07/25/23 23:00 Temperature Temperature Source Pulse Rate 81 82 Respiratory Rate 18 19 H Respiratory Effort Blood Pressure 145/86 H 142/78 H Blood Pressure Mean 105 99 Pulse Ox 92 94 Oxygen Delivery Method Room Air Room Air [facility] <JASS Gavin - Last Filed: 07/25/23 22:22> [facility] Lab Data Labs: Laboratory Results - last 24 hr 07/25/23 07/25/23 18:58 20:56 WBC 5.0 RBC 4.60 Hgb 11.2 L Hct 35.7 L MCV 77.6 L MCH 24.3 L MCHC 31.4 L RDW Std Deviation 51.9 H RDW Coeff of Anil 18.6 H Plt Count 127 L Immature Gran % (Auto) 0.200 Neut % (Auto) 57.6 Lymph % (Auto) 24.0 [place] % (Auto) 15.6 H Eos % (Auto) 2.0 Baso % (Auto) 0.6 Absolute Neuts (auto) 2.9 Absolute Lymphs (auto) 1.20 Nucleated RBC % 0 D-Dimer Quant (PE/DVT) 8.46 H* Sodium 144 Potassium 3.8 Chloride 115 H Carbon Dioxide 21.0 Anion Gap 8 BUN 33 H Creatinine 2.08 H Estim Creat Clear Calc 48.93 Est GFR (MDRD) Af Amer 43 L Est GFR (MDRD) Non-Af 35 L BUN/Creatinine Ratio 15.9 Glucose 127 H Calcium 8.2 L Troponin I High Sens 30 26 Radiography Diagnostic Testing: Clinical Impression(s) from Imaging Studies Chest X-Ray 07/25/23 19:36 IMPRESSION: Findings suggest edema or overlying pneumonia. This is slightly improved since the prior study. Electronically Signed: Hans Wong MD at 20:02 EDT , Chest CTA 07/25/23 20:14 IMPRESSION: 1. There is patchy bilateral groundglass infiltrate suggesting a bilateral pneumonia. 2. Pulmonary arteries are poorly attenuating. It is only 87 Hounsfield units. This is not diagnostic. Electronically Signed: Hans Wong MD at 20:54 EDT , EKG EKG shows a normal sinus rhythm, rate of 89 bpm: Attestation: I personally reviewed and interpreted this EKG as follows: Interpretation: Sinus Rhythm Comments: 89 bpm, normal sinus rhythm, no acute ST elevation, MI interval 162 ms, QRS duration 96 ms, no acute ST elevation, no acute infarct noted. Treatment and Re-Evaluation :: Differential diagnosis includes however is not limited to: ACS, KS, GERD, acute on chronic pain, gas, bowel obstruction Patient appears to be in his respiratory distress. Patient is asymptomatic at this time. Patient is acting appropriate per the patient's sister. Patient received a cardiac workup secondary to the mitten chest pain. Patient was seen here previously, cardiac cath December 2022. There is no acute significant blockages at that time. Patient has no stents in his heart. Currently not on any anticoagulation Patient's chest x-ray shows suggesting of edema or overlying pneumonia. This is slightly improved since prior study. Patient's chemistries show a creatinine of 2.08 however it looks like the patient is always above 1.58, this seems to be baseline. Initial troponin was 30. Patient's D-dimer was grossly elevated just over 8.0. Patient will receive a CTA. Patient's second troponin was negative at 26. Secondary to the elevated D-dimer, CT scan was ordered to rule out any pulmonary embolus. Unfortunately the IV dye was missed time, the CT scan showed that there is a patchy bilateral groundglass infiltrate suggesting a bilateral pneumonia. Pulmonary arteries are poorly attenuating, this is not a diagnostic exam. <Dr. Dillon Harrison MD - Last Filed: 07/25/23 23:24> [facility] MDM Narrative Medical decision making narrative: I have personally performed a face to face assessment of the patient and have reviewed the SHUN Note. I performed a substantive portion of the visit including all aspects of the following. My salcido findings include: History is 58-year-old male with MR with a history of prior KS but no cardiac stents. He did have a heart cath December last year. Currently is in assisted living as is his mom. He had intermittent chest pain today. No hemoptysis. He does have a history of prior DVTs. Currently symptom-free. Exam is [well-appearing 58-year-old male. Vital signs stable afebrile. Pulse ox 96% on room air no hypoxia. H EENT exam unremarkable. Moist mucous membranes. Neck nontender. Lungs clear to auscultation bilaterally. Heart regular rhythm rate about 90 no murmur. Chest wall and ribs nontender. Abdomen soft nontender. No peritoneal signs. No obstruction. Moving all 4 extremities. Calves are nontender. No cords. Neurologically is awake and alert. Answering questions following commands. Sisters present in room.] Medical Decision Making [58-year-old male known coronary disease. Prior DVT. Having nonreproducible chest pain today. Exam benign. Cardiac workup with a D-dimer.] Other additions or changes: [None] Repeat exam patient is doing well at 11:15 PM. Lengthy discussion with both he and his sisters at bedside. We do not have a specific cause for his chest pain. He had a history of DVTs in the past. They are unsure if he is ever had a PE. The timing of the IV bolus and the CAT scan was not ideal so they could not do a good evaluation for possible pulmonary emboli. I discussed this with the patient and his sister. I discussed with our hospitalist. Patient will be admitted to the PCU for chest pain uncertain etiology. He will be given a dose of Lovenox. Tomorrow they will do further studies to evaluate him for possible blood clots. History & Record Review Discussion w/independent historian: Patient Additional record(s) reviewed:: Prior inpatient record, Prior outpatient record, Prior ED visit and Prior labs Lab Data Attestation: I reviewed the patient's lab results. Lab results narrative: CBC shows a white count of 5. H&H 11.2 and 35 which is his baseline. Platelets 127. D-dimer is elevated 8.46. Initial troponin 30. Repeat 2-hour troponin 26. Electrolytes unremarkable gap 8. BUN 33 creatinine 2.08 consistent with his history of chronic renal insufficiency. Glucose 127. Labs: Laboratory Results - last 24 hr 07/25/23 07/25/23 18:58 20:56 WBC 5.0 RBC 4.60 Hgb 11.2 L Hct 35.7 L MCV 77.6 L MCH 24.3 L MCHC 31.4 L RDW Std Deviation 51.9 H RDW Coeff of Anil 18.6 H Plt Count 127 L Immature Gran % (Auto) 0.200 Neut % (Auto) 57.6 Lymph % (Auto) 24.0 [place] % (Auto) 15.6 H Eos % (Auto) 2.0 Baso % (Auto) 0.6 Absolute Neuts (auto) 2.9 Absolute Lymphs (auto) 1.20 Nucleated RBC % 0 D-Dimer Quant (PE/DVT) 8.46 H* Sodium 144 Potassium 3.8 Chloride 115 H Carbon Dioxide 21.0 Anion Gap 8 BUN 33 H Creatinine 2.08 H Estim Creat Clear Calc 48.93 Est GFR (MDRD) Af Amer 43 L Est GFR (MDRD) Non-Af 35 L BUN/Creatinine Ratio 15.9 Glucose 127 H Calcium 8.2 L Troponin I High Sens 30 26 Radiography Chest X-Ray - ED: 1 View, Read by ED Physician, Normal, Lungs, Mediastinum, Bony Structures, No Acute Disease, Chronic Changes and Cardiomegaly Diagnostic Testing: Clinical Impression(s) from Imaging Studies Chest X-Ray 07/25/23 19:36 IMPRESSION: Findings suggest edema or overlying pneumonia. This is slightly improved since the prior study. Electronically Signed: Hans Wong MD at 20:02 EDT , Chest CTA 07/25/23 20:14 IMPRESSION: 1. There is patchy bilateral groundglass infiltrate suggesting a bilateral pneumonia. 2. Pulmonary arteries are poorly attenuating. It is only 87 Hounsfield units. This is not diagnostic. Electronically Signed: Hans Wong MD at 20:54 EDT , Chest x-ray, portable, single view interpreted by myself shows cardiomegaly. Chronic changes. No acute process. Normal lung trevizo. No effusions. Discharge Plan Triage Chief Complaint: Chest Pain ED Midlevel Provider: Mike Tavarez ED Provider: Dillon Harrison Dx/Rx/DC Orders Clinical Impression: Chest pain, History of KS (myocardial infarction), History of deep vein thrombosis, History of chronic kidney disease, History of anemia Prescriptions: No Action mycophenolate mofetil 500 MG tablet 500 mg PO BID multivitamin Tablet 1 tab PO DAILY lactulose 20 gram/30 mL solution 45 ml PO 4X/DAY Xifaxan 550 mg tablet 550 mg PO BID tacrolimus 0.5 mg capsule 0.5 mg PO BID mirtazapine 30 mg tablet 30 mg PO QHS diltiazem HCl [Cardizem LA] 120 mg tablet extended release 24 hr 120 mg PO DAILY Qty: 30 0RF metoprolol tartrate 25 mg Tablet 25 mg PO BID Qty: 0 0RF atorvastatin 40 mg tablet 40 mg PO QHS pantoprazole 40 mg tablet,delayed release (DR/EC) 40 mg PO DAILY Primary Care Provider: Mike Bella Referrals: Mike Bella MD [Primary Care Provider] - Disposition Disposition: Acute Care Hospital [facility]
[2023-07-25 19:33] LABS: Absolute Neutrophil Count 2.9 X10^3/uL (2.0-7.7); Basophil# 0.03 X10^3/uL; Basophil% 0.6 % (0-1); Hematocrit 35.7 % (40-54); Hemoglobin 11.2 g/dL (13.0-16.5); Mean Corp Hgb Conc 31.4 g/dL (32-36); Mean Corpuscular Hgb 24.3 pg (27.0-32.0); Mean Corpuscular Volume 77.6 fL (80-94); Monocyte# 0.78 X10^3/uL; Monocyte% 15.6 % (0-10); NRBC Flagged by Analyzer 0 % (0-5); Neutrophil # 2.88 X10^3/uL (2.7-7.7); Neutrophil % 57.6 % (47-70); Platelet Count 127 K/mm3 (150-450); RBC Distribution Width CV 18.6 % (11.6-14.6); RBC Distribution Width SD 51.9 fl (35.1-43.9)
--- NOTE | 2023-07-25 19:36 | RAD_ITS ---
STUDY: X-RAY CHEST REASON FOR EXAM: Male, 58 years old. CHEST PAIN chest pain TECHNIQUE: XR Chest 1 View COMPARISON: 01/30/2023 FINDINGS: There is no demonstrated pleural abnormality. Prominent interstitial lung markings. There is borderline cardiomegaly. Normal mediastinum and alton. Normal visualized pulmonary arteries. Normal visualized aortic arch and descending thoracic aorta. Normal visualized thoracic spine. Normal visualized ribs, clavicles, and shoulders. There are no acute findings of the upper abdomen. RAD/Chest 1 View (Portable) IMPRESSION: Findings suggest edema or overlying pneumonia. This is slightly improved since the prior study. Electronically Signed: Hans Wong MD at 20:02 EDT ,
[2023-07-25 20:03] LABS: Anion Gap 8 (5-15); BUN 33 mg/dL (7-18); BUN/Creat Ratio 15.9 RATIO (10-20); Calcium,Total 8.2 mg/dL (8.5-10.1); Chloride 115 mmol/L (98-107); Creatinine, Serum 2.08 mg/dL (0.70-1.30); EST Glomerular Filtration Rate 35 mL/min (>60); Est Glom Filt Rate - Afr Amer 43 mL/min (>60); Estimated Creatinine Clearance 48.93 ml/min; Glucose 127 mg/dL (74-106); Potassium 3.8 mmol/L (3.5-5.1); Sodium Level 144 mmol/L (136-145); Troponin-I HS (w/2H Reflex) 30 pg/mL (3.0-78.0)
[2023-07-25 20:07] LABS: D-Dimer Quantitative (DVT/PE) 8.46 FEU/ug/m (0.27-0.49)
--- NOTE | 2023-07-25 20:14 | CT_ITS ---
EXAM: CT ANGIOGRAPHY CHEST WITHOUT AND WITH INTRAVENOUS CONTRAST CLINICAL INDICATION: CP w/ elevated d-dimer TECHNIQUE: Helically acquired angiography images were obtained of the chest without and with intravenous contrast. This CT exam was performed using one or more of the following dose reduction techniques: automated exposure control, adjustment of the mA and/or kV according to patient size, and/or use of iterative reconstruction technique. MIP reconstructed images were created and reviewed. CONTRAST: IV 85mL Isovue-370 RADIATION DOSE: CTDIvol = 23.98 mGy, DLP = 539.44 mGy-cm COMPARISON: 9.26.23 FINDINGS: PULMONARY ARTERIES: Pulmonary arteries are poorly attenuating. It is only 87 Hounsfield units. This is not diagnostic. Normal in caliber. AORTA: Unremarkable. Normal in caliber. No evidence of dissection. GREAT VESSELS OF AORTIC ARCH: Unremarkable. Normal in caliber. No evidence of dissection. LUNGS AND PLEURAL SPACES: There is patchy bilateral groundglass infiltrate suggesting a bilateral pneumonia. No mass. No pleural effusion or thickening. HEART: Enlarged heart. There are calcifications of the coronary arteries. No pericardial effusion. MEDIASTINUM: Hiatal hernia. No mediastinal or hilar adenopathy. Esophagus is unremarkable. THYROID: Unremarkable. No thyroid lesions. BONES/JOINTS: Scoliosis of the thoracic spine. There are degenerative changes of the shoulders. There are multi-level degenerative changes of the thoracic spine. No suspicious lytic or blastic abnormality. KIDNEYS AND URETERS: Atrophic kidneys. Multiple benign-appearing cysts of the right kidney. Multiple benign-appearing cysts of the left kidney. OTHER FINDINGS: Post-processing of the angiographic images was performed, with axial imaging and 3D reconstruction. MIPS images were obtained. CT/CTA Chest W/WO Contrast IMPRESSION: 1. There is patchy bilateral groundglass infiltrate suggesting a bilateral pneumonia. 2. Pulmonary arteries are poorly attenuating. It is only 87 Hounsfield units. This is not diagnostic. Electronically Signed: Hans Wong MD at 20:54 EDT ,
[2023-07-25 20:57] VITALS: BP 145/86; PULSE 81; RESP 18; O2SAT 92
[2023-07-25 21:29] LABS: Reflex Troponin-HS? (from REC) Y
[2023-07-25 21:53] LABS: Troponin-I HS 26 pg/mL (3.0-78.0)
[2023-07-25 23:00] VITALS: BP 142/78; PULSE 82; RESP 19; O2SAT 94
--- NOTE | 2023-07-25 23:19 | HP.PCM.HOS_ITS ---
HPI - General General Date of Admission: 07/25/23 Date of Service: 07/25/23 Chief Complaint: Chest pain. HPI Narrative The patient is a 58 y/o M w/ PMHx: Anxiety and Depression, Hx C-difficile colitis, Chronic thrombocytopenia, Chronic anemia/AOCD w/ Hx GI bleed, ESRD previously on HD s/p Renal Txp at [facility] with now CKD stage IIIb, Chronic liver disease, Neurogenic bladder w/ self-cath regimen, Mild MRDD, HTN, HLD, PAF, Hx VTE (DVT, PE), Nonobstructive CAD managed medically who presents to the [facility] ED on 07/25/23 with history of dizziness, intermittent reported chest discomfort starting in the morning and then occurring through the day intermittently reporting discomfort in the lower and upper chest region with last occurrence just before dinner on day of presentation prompting EMS call. Patient notes mild lightheadedness/dizziness concurrently. He notes in general he feels poorly. He denies any recent cough or URI type symptoms. He notes the discomfort is general in his chest, aching, worse with deep inspiration attempt, 3-5/10 in severity. Family notes that patient is acting at his baseline. Workup in the ED included T99.1, heart rate 91, BP 142/87, respiratory rate 18, 96% on room air, CBC WBC 5.0, 11.2, MCV 77.6, platelet 127 without marked shift, D- dimer 8.46, BMP with chloride 115, BUN/creatinine 33/2.08, GFR 35, glucose 127, calcium 8.2, troponin 30 with repeat delta 26, chest x-ray with questionable edema versus overlying pneumonia with noted prominent interstitial markings slightly improved from the previous checks x-ray of note, EKG with sinus rhythm with no acute evidence of ischemia, CTPA with patchy bilateral groundglass infiltrate suggestive of bilateral pneumonia. In the ED patient administered therapeutic lovenox x 1 given poorly timed bolus with the CTPA. Discussed concerns for possible infiltrate on CTPA but given no recent cough, dyspnea, fever or chills and once compared to previous imaging ED physician notes low suspicion for pneumonia therefore antibiotics were not administered in the ED. [facility] Medical History (Updated 07/25/23 @ 23:[address] Jesica Russo MD) Anemia in chronic illness Anxiety and depression Bladder dysfunction Bronchitis Chronic kidney disease, stage 3b CKD (chronic kidney disease), stage III Congenital nystagmus DVT (deep venous thrombosis) History of DVT (deep vein thrombosis) History of encephalopathy History of pulmonary embolism HTN (hypertension) Immunosuppressed status Mild intellectual disability Myocardial infarct Neurogenic bladder disorder Neutropenia Pancytopenia Pulmonary embolism Severe protein-calorie malnutrition Urinary retention Vocal cord dysfunction Home Medications mycophenolate mofetil 500 mg tablet 500 mg PO BID TRANSPLANT ANTI-REJECTION 07/14/16 [History Last Taken 01/26/23] multivitamin 1 tab PO DAILY SUPPLEMENT 02/13/22 [History Last Taken 01/26/23] lactulose 20 gram/30 mL oral solution 45 ml PO 4X/DAY hepatic failure 06/13/22 [History Last Taken 01/26/23] rifaximin 550 mg tablet (Xifaxan) 550 mg PO BID ANTIBIOTIC 07/16/22 [History Last Taken 01/26/23] mirtazapine 30 mg tablet 30 mg PO QHS DEPRESSION 11/01/22 [History Last Taken 01/25/23] diltiazem HCl 120 mg tablet,extended release 24 hr (Cardizem LA) 120 mg PO DAILY BLOOD PRESSURE #30 tabs 01/01/23 [Rx Last Taken 01/26/23] metoprolol tartrate 25 mg tablet 25 mg PO BID BLOOD PRESSURE #0 tabs 01/01/23 [Rx Last Taken 01/26/23] tacrolimus 0.5 mg capsule, immediate-release 0.5 mg PO BID TRANSPLANT ANTI- REJECTION 01/15/23 [History Last Taken 01/26/23] atorvastatin 40 mg tablet 40 mg PO QHS 07/25/23 [History Last Taken Unknown] pantoprazole 40 mg tablet,delayed release 40 mg PO DAILY 07/25/23 [History Last Taken Unknown] Allergy/AdvReac Type Severity Reaction Status Date / Time red dye Allergy PT UNSURE Verified 07/25/23 19:15 OF REACTION Family History Mother Hypertension Father Diabetes Surgical History Kidney transplant recipient Renal transplant recipient S/P arteriovenous (AV) fistula creation Social History household members: none housing: [facility] Smoking Status: Never smoker second hand exposure: No alcohol intake: never substance use type: does not use caffeine: No ROS ROS Narrative Admission Review of Systems: CONSTITUTIONAL: No weight loss, fever, chills, + weakness or fatigue. HEENT: + Chronic nystagmus, mild lightheadedness/dizziness. Eyes: No visual loss, blurred vision, double vision or yellow sclerae. Ears, Nose, Throat: No hearing loss, sneezing, congestion, runny nose or sore throat. SKIN: No rash or itching, lesions, wounds. CARDIOVASCULAR: Chest pain/discomfort, mild lightheadedness/dizziness. No palpitations, edema, orthopnea, syncopal events. RESPIRATORY: No shortness of breath, cough or sputum, wheezing, hemoptysis. GASTROINTESTINAL: No anorexia, nausea, vomiting, abdominal pain, diarrhea, melena, BRBPR. GENITOURINARY: + Chronic neurogenic bladder with self catheterization regimen. NEUROLOGICAL: + Chronic underlying mild MRDD, neurogenic bladder, chronic nystagmus, mild lightheadedness/dizziness. No headache, syncope, paralysis, ataxia, numbness or tingling in the extremities, focal weakness, change in bowel or bladder control, seizure. MUSCULOSKELETAL: + muscle, back pain, joint pain or stiffness. HEMATOLOGIC: + anemia, easy bleeding/bruising. LYMPHATICS: No enlarged nodes. No history of splenectomy. PSYCHIATRIC: No history of depression or anxiety. ENDOCRINOLOGIC: No reports of sweating, cold or heat intolerance. No polyuria or polydipsia. ALLERGIES: No history of asthma, hives, eczema or rhinitis. Vital Signs Vital Signs Vital Signs: 07/25/23 19:12 07/25/23 19:16 07/25/23 20:15 Temperature 99.1 F Temperature Source Temporal Pulse Rate 91 Respiratory Rate 18 Respiratory Effort Normal Non-Labored Blood Pressure 142/87 H Blood Pressure Mean 105 Pulse Ox 96 Oxygen Delivery Method Room Air Room Air 07/25/23 20:57 07/25/23 23:00 Temperature Temperature Source Pulse Rate 81 82 Respiratory Rate 18 19 H Respiratory Effort Blood Pressure 145/86 H 142/78 H Blood Pressure Mean 105 99 Pulse Ox 92 94 Oxygen Delivery Method Room Air Room Air Weight Weight: 224 lb 3.362 oz Body Mass Index (BMI) 30.4 Physical Exam Narrative Physical Examination: General: awake, alert, oriented x 3,cooperative, seated upright in the ED bed in no apparent distress, stable mild cognitive impairment, sister notes had not been communicating verbally over the last 1-2 weeks but this had been purposeful but in the ED is answering questions and talking. Skin: normal color, turgor, no icterus, cyanosis except occasional staged ecchymoses. HEENT: AT/NC, EOMI, PERRLA, moderately dry MM, poor dentition, no carotid bruits or JVD noted, chronic congenital nystagmus evident. Lungs: Mildly diminished BS, > bases, moderate effort, mildly increased respiratory rate but no distress, no rales, ronchi or wheezing. Heart: Regular rate with regular rhythm; no gallop, rub audible. Abdomen: soft, NTTP, ND, mildly hyperactive BS, no appreciated HSM. Extremities: no cyanosis, no clubbing, pedal to mid sifuentes bilateral edema. Neurological: patient awake, alert, oriented as noted; cognitive function at baseline with underlying chronic cognitive impairment; pupils equally reactive to light and accommodation with chronic congenital nystagmus, cranial nerves grossly normal otherwise, moving all 4 extremities, no focal deficits, strength moderately globally decreased secondary to acute presentation. Psychiatric: affect appears mildly fatigued otherwise normal, no acute evidence of depressive or anxiety feelings but does have underlying history. Results Lab / Micro Data 07/25/23 18:58 07/25/23 18:58 Labs: Laboratory Results - last 24 hr 07/25/23 18:58: WBC 5.0, RBC 4.60, Hgb 11.2 L, Hct 35.7 L, MCV 77.6 L, MCH 24.3 L, MCHC 31.4 L, RDW Std Deviation 51.9 H, RDW Coeff of Anil 18.6 H, Plt Count 127 L, Immature Gran % (Auto) 0.200, Neut % (Auto) 57.6, Lymph % (Auto) 24.0, Craig % (Auto) 15.6 H, Eos % (Auto) 2.0, Baso % (Auto) 0.6, Absolute Neuts (auto) 2.9, Absolute Lymphs (auto) 1.20, Nucleated RBC % 0, D-Dimer Quant (PE/DVT) 8.46 H*, Sodium 144, Potassium 3.8, Chloride 115 H, Carbon Dioxide 21.0, Anion Gap 8, BUN 33 H, Creatinine 2.08 H, Estim Creat Clear Calc 48.93, Est GFR (MDRD) Af Amer 43 L, Est GFR (MDRD) Non-Af 35 L, BUN/Creatinine Ratio 15.9, Glucose 127 H, Calcium 8.2 L, Troponin I High Sens 30 07/25/23 20:56: Troponin I High Sens 26 Imaging Radiology Impression Chest X-Ray 07/25/23 19:36 IMPRESSION: Findings suggest edema or overlying pneumonia. This is slightly improved since the prior study. Electronically Signed: Hans Wong MD at 20:02 EDT , Chest CTA 07/25/23 20:14 IMPRESSION: 1. There is patchy bilateral groundglass infiltrate suggesting a bilateral pneumonia. 2. Pulmonary arteries are poorly attenuating. It is only 87 Hounsfield units. This is not diagnostic. Electronically Signed: Hans Wong MD at 20:54 EDT , Assessment & Plan Assessment/Plan (1) Chest pain: PLAN: Plan The patient is a 58 y/o M w/ PMHx: Anxiety and Depression, Hx C-difficile colitis, Chronic thrombocytopenia, Chronic anemia/AOCD w/ Hx GI bleed, ESRD previously on HD s/p Renal Txp at [facility] with now CKD stage IIIb, Chronic liver disease, Neurogenic bladder w/ self-cath regimen, Mild MRDD, HTN, HLD, PAF, Hx VTE (DVT, PE), Nonobstructive CAD managed medically who presents to the [facility] ED on 07/25/23 with history of dizziness, intermittent reported chest discomfort starting in the morning and then occurring through the day intermittently reporting discomfort in the lower and upper chest region with last occurrence just before dinner on day of presentation prompting EMS call. Family notes that patient is acting at his baseline. #1. Chest pain, concerning for Pulmonary Emboli given poorly timed bolus with significantly elevated D-dimer with previous VTE history w/ CTPA read of Possible Acute Bilateral Community Acquired (lower suspicion with comparison to prior but given patient general malaise, fatigue treating until ruled out) with chest discomfort with known nonobstructive CAD as noted #2: Will maintain on oxygen with wean as tolerated to room air, continue ATC budesonide therapy, PRN albuterol, will start on IV Rocephin and Azithromycin pending further evaluation but de-escalate off abx therapy once assure no PNA evident, HOB, IS parameters w/ pending sputum cultures, full respiratory viral panel and urine antigens, maintain on telemetry monitoring with continued serial cardiac enzymes, magnesium level requested, BNP requested, procalcitonin requested, given poorly timed CTPA will request BL duplex US but in the interim will maintain on therapeutic lovenox cautiously. PT/OT/case management consulted for discharge planning. #2. Nonobstructive CAD: Patient most recent cardiac catheterization 12/29/22 with noted 60-70% stenosis in ostial and proximal ramus managed with medical therapy, not on dual antiplt therapy secondary to notable GI bleed history. Continue asa, statin, metoprolol home regimen. #3. Chronic liver disease, unclear specific etiology: Patient following with gastroenterology, for most recent evaluation note during 01/2023 admission plan had been outpatient biopsy with recommendation to continue lactulose, metoprolol, rifaximin home regimen, encourage continued outpatient follow-up as previously arranged. #4. History renal transplant status post previous end-stage renal disease on HD--> CKD stage IIIb following with nephrology, will continue patient home Tacrolimus and given low suspicion for PNA will continue CellCept, admission CMP with BUN/creatinine 32/2.08, baseline appears primarily 1.5-1.9, will continue to trend. #5. PAF: Patient is not chronically anticoagulated secondary to significant GI bleed history, continue home aspirin, metoprolol and diltiazem regimen with hold parameters as needed. #6. History of VTE: Patient with history of DVT, PE, previously on Eliquis however given significant GI bleed had been discontinued, D-dimer notably elevated upon presentation, CTPA with findings consistent with bilateral pneumo yasmani, no pulmonary emboli evident but very poorly timed bolus thus will maintain as noted on therapeutic lovenox pending BL LE duplex US as initial step. #7. Chronic anemia, currently microcytic/AOCD: Admission hemoglobin 11.2, MCV 77.6, prior baseline appears 10-11 although most recently 05/25/2023 hemoglobin had been 12.1, continue to trend. #8. Chronic thrombocytopenia/leukopenia (pancytopenia), unclear specific etiology: Admission platelets 127, prior baseline 90-130; however, most recently prior to this 05/25/2023 platelet 202, will continue to trend. #9. Hypertension: Continue home regimen including metoprolol, diltiazem with hold parameters as needed, PRN hydralazine. #10. Hyperlipidemia: We will continue patient on statin therapy. #11. GERD with history of GI bleed: We will continue patient home PPI, encourage continued outpatient follow-up with gastroenterology as previously arranged. #12. Chronic MRDD, congenital nystagmus with neurogenic bladder with renal disease associated as noted above w/ history of frequent chronic UTIs: We will maintain on fall precautions, continue catheterization regimen per his usual home regimen as noted above. #13. Anxiety and depression: We will continue patient home mirtazapine regimen. #14. DVT prophylaxis: Lovenox, therapeutic pending BL LE duplex given poorly timed bolus with CTPA as noted. #15. CODE status: Patient HCPNETTIE is his mother who is present and living will is currently in place. Full Code. Charges/Coding Visit Charges Inpatient E&M: 88179 Init Hosp L3
[2023-07-25 23:48] VITALS: BP 164/93; PULSE 87; RESP 16; TEMP 36.8; O2SAT 96
[2023-07-25] MEDS: Enoxaparin 100 MG/ML Syringe SC (23:54)
[2023-07-25 23:58] LABS: Magnesium 1.7 mg/dL (1.6-2.6)
[2023-07-26] VITALS (10 sets, daily range): BP systolic 139–161; BP diastolic 80–101; PULSE 70–97; RESP 14–18; TEMP 35.9–37.1; O2SAT 92–98; BMI 29.9
[2023-07-26 00:24] LABS: Procalcitonin 0.14 ng/mL (0.00-0.09)
[2023-07-26 00:32] LABS: BNP,B-Type NATRIURETIC PEPTIDE 522.5 pg/mL (0-100)
[2023-07-26] MEDS: 0.9% Normal Saline (250mL Bag) 250 ML 15 ML IV (01:46)
[2023-07-26] MEDS: Ceftriaxone 1 GM/50 ML BAG IV (01:47)
[2023-07-26 02:32] LABS: Troponin-I HS 32 pg/mL (3.0-78.0)
[2023-07-26 03:24] LABS: M R Staph aureus DNA By PCR Negative (Negative); Probe Check PASS; Specimen Processing Control PASS
[2023-07-26 05:29] LABS: Absolute Lymphocyte Count 0.87 X10^3/uL (0.83-4.51); Absolute Neutrophil Count 3.4 X10^3/uL (2.0-7.7); Basophil# 0.02 X10^3/uL; Basophil% 0.4 % (0-1); Eosinophil# 0.09 X10^3/uL; Eosinophils% 1.8 % (0-5); Hematocrit 33.6 % (40-54); Hemoglobin 10.4 g/dL (13.0-16.5); Lymphocyte # 0.87 X10^3/ul (0.83-4.51); Mean Corpuscular Hgb 23.9 pg (27.0-32.0); Mean Corpuscular Volume 77.1 fL (80-94); Monocyte# 0.75 X10^3/uL; Monocyte% 14.6 % (0-10); NRBC Flagged by Analyzer 0 % (0-5); Neutrophil # 3.38 X10^3/uL (2.7-7.7); Neutrophil % 65.8 % (47-70); Platelet Count 116 K/mm3 (150-450); RBC Distribution Width CV 18.7 % (11.6-14.6); RBC Distribution Width SD 52.2 fl (35.1-43.9); Red Blood Count 4.36 M/mm3 (4.6-6.2); White Blood Count 5.1 K/mm3 (4.4-11.0)
--- NOTE | 2023-07-26 05:55 | VDLE_ITS ---
Reason For Study: elevated D-dimer RIGHT LEFT FV is compressible, spontaneous, phasic, GSV is normal. competent and demonstrates normal CFV is compressible, spontaneous, phasic, augmentation. competent, and demonstrates normal POP V is compressible, spontaneous, phasic, augmentation. competent and demonstrates normal FV is compressible, spontaneous, phasic, augmentation. competent and demonstrates normal T/P Trunk is compressible. augmentation. RT PerV is compressible. POP V is compressible, spontaneous, phasic, Acute deep vein thrombosis is noted in the competent and demonstrates normal CFV. It is dilated and NONCOMPRESSIBLE. augmentation. Acute deep vein thrombosis is noted in the T/P Trunk is compressible. PTV. It is dilated and NONCOMPRESSIBLE. PTV is compressible. Acute superficial vein thrombosis is noted in LT PerV is compressible. the GSV. Acute superficial vein thrombosis is noted in the ASV in the groin. Procedure This is a venous duplex using B-mode, color flow and spectral Doppler. Exam performed portable in patient room. The exam was diagnostic. A preliminary report was called and/or faxed to the pt's nurse Matt. VL/Venous Duplex US - Frederic Extrem Interpretation Summary Acute deep vein thrombosis is noted in the right common femoral vein. Acute gregory p vein thrombosis is noted in the right posterior tibial vein. The remainder of the right lower extr emity deep venous system is patent and compressible. Acute superficial thrombophlebitis is noted in the right great saphenous vein and the right accessory saphenous vein in the upper thigh. Deep veins of the left lower extremity are patent and compressible segmentally. There is no evidence o f left lower extremity deep vein thrombosis. Valvular competence appears intact within the p roximal deep venous system on the left . The left great saphenous vein appears patent and compressi ble segmentally. Ordering Physician: Jesica Russo Performed By: Ethan Evans RVT
[2023-07-26 06:17] LABS: ALB/GLOB Ratio 0.9 RATIO (0.9-2.4); AST(SGOT) 36 U/L (15-37); Alanine Aminotransfer ALT/SGPT 33 U/L (16-61); Alkaline Phosphatase 69 U/L (45-117); Anion Gap 6 (5-15); BUN 32 mg/dL (7-18); BUN/Creat Ratio 17.8 RATIO (10-20); Calcium,Total 8.1 mg/dL (8.5-10.1); Chloride 115 mmol/L (98-107); EST Glomerular Filtration Rate 42 mL/min (>60); Est Glom Filt Rate - Afr Amer 50 mL/min (>60); Estimated Creatinine Clearance 56.16 ml/min; Globulin 3.4 g/dL (2.2-4.2); Glucose 94 mg/dL (74-106); Protein, Total 6.4 g/dL (6.4-8.2); Sodium Level 143 mmol/L (136-145)
[2023-07-26] MEDS: Budesonide Respules 0.5 MG/2 ML AMPUL.NEB. INHALATION ×2 (07:17→19:39)
[2023-07-26] MEDS: Aspirin 81 MG TAB.CHEW PO (08:28)
[2023-07-26] MEDS: Azithromycin 500 MG in Dextrose 5%-Water (250mL Bag) 250 ML 250 MG IV (09:57)
[2023-07-26] MEDS: Mycophenolate Mofetil 250 MG Capsule 500 MG PO ×2 (10:04→20:20)
[2023-07-26] MEDS: Tacrolimus 0.5 MG Capsule PO ×2 (10:04→20:21)
[2023-07-26] MEDS: Lactulose 20 GM/30 ML UDC 30 GM PO ×4 (10:05→20:17)
[2023-07-26] MEDS: Metoprolol Tartrate 25 MG Tablet PO ×2 (10:05→20:19)
[2023-07-26] MEDS: Enoxaparin 100 MG/ML Syringe SC ×2 (10:06→20:18)
[2023-07-26] MEDS: Pantoprazole Sodium 40 MG Tablet PO (10:06)
[2023-07-26] MEDS: dilTIAZem CD 120 MG Capsule PO (10:07)
[2023-07-26] MEDS: rifAXIMin 550 MG Tablet PO ×2 (10:07→20:19)
--- NOTE | 2023-07-26 11:07 | ECHOD_ITS ---
Reason For Study: CHEST PAIN Procedure This was a 2D Doppler, Color Flow transthoracic echocardiogram. Exam performed portable in patient room. Left Ventricle Normal LV size. Moderate concentric left ventricular hypertrophy. Left ventricular systolic function is normal. The left ventricular ejection fraction is 65 %. Stage 3 diastolic dysfunction. Infero- Basal: Hypokinetic. Right Ventricle Normal RV size. Normal systolic function. Atria The left atrium is moderately enlarged. The right atrium is moderately enlarged. Tricuspid Valve Normal tricuspid valve. Mild (1+) tricuspid valve insufficiency. Pulmonary artery systolic pressure is 28 mmHg. Pulmonic Valve Normal pulmonic valve. Great Vessels Normal aortic root. The pulmonary artery is normal size. Normal inferior vena cava. Pericardium/Pleural No pericardial effusion. MMode/2D Measurements & Calculations LVIDd: 4.5 cm IVSd: 1.5 cm LVOT diam: 2.2 cm LVIDs: 3.1 cm LVPWd: 1.4 cm LVOT area: 3.9 cm2 RVDd: 4.0 cm FS: 30.6 % Ao root diam: 4.2 cm LAV(MOD-bp): 128.3 ml LVAd ap4: 36.3 cm2 LAV(MOD-bp) Indexed: 57.8 ml/m2 LVLd ap4: 9.4 cm LAV(MOD-sp2): 133.3 ml EDV(MOD-sp4): 112.2 ml LAV(MOD-sp4): 117.6 ml EDV(sp4-el): 119.1 ml LVAs ap4: 19.5 cm2 LVLs ap4: 7.7 cm ESV(MOD-sp4): 40.6 ml ESV(sp4-el): 41.8 ml EF(MOD-sp4): 63.8 % EF(sp4-el): 64.9 % SV(MOD-sp4): 71.6 ml SV(MOD-sp2): 75.7 ml LVAd ap2: 38.8 cm2 LVLd ap2: 10.0 cm EDV(MOD-sp2): 127.1 ml EDV(sp2-el): 127.6 ml LVAs ap2: 22.7 cm2 LVLs ap2: 8.3 cm ESV(MOD-sp2): 51.5 ml ESV(sp2-el): 52.2 ml EF(MOD-sp2): 59.5 % SV(sp4-el): 77.3 ml LA A4 area: 31.7 cm2 LA dimension(2D): 4.2 cm TAPSE: 2.8 cm RA A4 area: 28.1 cm2 Time Measurements MV dec time: 0.18 sec Doppler Measurements & Calculations MV E max phi: 97.0 cm/sec Lat Peak E' Phi: 13.6 cm/sec Med Peak E' Phi: 10.4 cm/sec MV A max phi: 47.7 cm/sec E/E' lat: 7.1 E/E' med: 9.3 MV E/A: 2.0 MV dec slope: 539.5 cm/sec2 Ao V2 max: 180.8 cm/sec LV V1 max: 146.8 cm/sec Ao max P.1 mmHg LV V1 max P.6 mmHg Ao V2 mean: 120.6 cm/sec LV V1 mean P.1 mmHg Ao mean P.7 mmHg LV V1 mean: 107.3 cm/sec Ao V2 VTI: 33.7 cm LV V1 VTI: 29.1 cm AV (velocity ratio): 0.86 ANA(I,D): 3.4 cm2 ANA(V,D): 3.2 cm2 SV(LVOT): 113.8 ml PA V2 max: 113.5 cm/sec TR max phi: 247.6 cm/sec PA max PG (full): 1.7 mmHg TR max P.5 mmHg ECHO/Echo Complete Interpretation Summary Normal LV size. Moderate concentric left ventricular hypertrophy. Left ventricular systolic function is normal. The left ventricular ejection fraction is 65 %. Infero-Basal: Hypokinetic Stage 3 diastolic dysfunction. Ordering Physician: Ralf Tsang Referring Physician: Mike Bella Performed By: Carly Solorzano RDCS
--- NOTE | 2023-07-26 11:43 | NURSING ---
[address] cath per order in sterile fashion with no success. reported to RN for further attempt. 1130 Bladder scanned fo 1090 mL and make additional attempt to st cath again with no success. reported to RN. Provider gives order for [facility]man instead of st cath and use urojet at [facility].
--- NOTE | 2023-07-26 11:45 | PN.HOSP_ITS ---
Reason for Visit Reason for Visit: Diagnoses Chest pain, unspecified (07/25/23) Subjective Subjective Patient admitted on evening of 07/24 for chest pain. Patient has history of mild MRDD and lives in an assisted living facility. He noted to staff that he had chest discomfort starting the morning that then occurred throughout the day intermittently on the day of admission. He also had concurrent lightheadedness and dizziness with his chest pain. Patient had known history of DVT/PE, previously completed anticoagulation course and not currently on anticoagulation. CTA chest on admit showed patchy bilateral groundglass opacities suggestive of bilateral pneumonia, and unfortunately the pulmonary arteries were poorly attenuating so the study was not diagnostic/PE could not be ruled out. Venous Doppler study on 07/25 showed acute DVT in the right common femoral vein and right posterior tibial vein. Patient currently being treated with therapeutic Lovenox twice daily for DVT and suspected PE. Echo showed EF 65%, stage III diastolic dysfunction, mild hypokinesis of inferobasilar region, moderate concentric LV hypertrophy, mildly elevated pulmonary artery systolic pressure. Patient seen at bedside this morning. Patient was laying back fairly comfortably in bed, in no acute distress. Patient has mild MRDD but was making appropriate eye contact with me and answering questions with short appropriate responses. He reported mild abdominal discomfort this morning, noted that he intermittently needs straight cath at home and he feels like he needs a straight cath or Ga catheter at this time. He was breathing comfortably on room air at rest. He denied any shortness of breath. He stated that his chest pain felt better from yesterday. Denied any fevers or chills. No other acute concerns this time. Objective Data Objective Data Vital Signs: Vital Signs Temp Pulse Resp BP Pulse Ox O2 Del Method 97.5 F L 93 18 160/101 H 95 Room Air 07/26/23 09:06 07/26/23 10:05 07/26/23 09:06 07/26/23 09:06 07/26/23 09:06 07/26/23 09:06 Oxygen Delivery Method Room Air Weight: 100.2 kg Body Mass Index (BMI) 29.9 Intake & Output: Intake and Output for Last 24 Hours 07/24/23 07/25/23 07/26/23 23:59 23:59 23:59 Intake Total 88.75 / 88.75 Balance 88.75 / 88.75 Lab / Micro Data 07/26/23 05:01 07/26/23 05:01 Labs: Laboratory Results - last 24 hr 07/25/23 18:58: WBC 5.0, RBC 4.60, Hgb 11.2 L, Hct 35.7 L, MCV 77.6 L, MCH 24.3 L, MCHC 31.4 L, RDW Std Deviation 51.9 H, RDW Coeff of Anil 18.6 H, Plt Count 127 L, Immature Gran % (Auto) 0.200, Neut % (Auto) 57.6, Lymph % (Auto) 24.0, [place] % (Auto) 15.6 H, Eos % (Auto) 2.0, Baso % (Auto) 0.6, Absolute Neuts (auto) 2.9, Absolute Lymphs (auto) 1.20, Nucleated RBC % 0, D-Dimer Quant (PE/DVT) 8.46 H*, Sodium 144, Potassium 3.8, Chloride 115 H, Carbon Dioxide 21.0, Anion Gap 8, BUN 33 H, Creatinine 2.08 H, Estim Creat Clear Calc 48.93, Est GFR (MDRD) Af Amer 43 L, Est GFR (MDRD) Non-Af 35 L, BUN/Creatinine Ratio 15.9, Glucose 127 H, Calcium 8.2 L, Troponin I High Sens 30 07/25/23 20:56: Troponin I High Sens 26 07/25/23 23:38: Magnesium 1.7, B-Natriuretic Peptide 522.5 H, Procalcitonin 0.14 H 07/26/23 01:30: MRSA (PCR) Negative 07/26/23 01:55: Troponin I High Sens 32 07/26/23 05:01: WBC 5.1, RBC 4.36 L, Hgb 10.4 L, Hct 33.6 L, MCV 77.1 L, MCH 23.9 L, MCHC 31.0 L, RDW Std Deviation 52.2 H, RDW Coeff of Anil 18.7 H, Plt Count 116 L, Immature Gran % (Auto) 0.400, Neut % (Auto) 65.8, Lymph % (Auto) 17.0 L, [place] % (Auto) 14.6 H, Eos % (Auto) 1.8, Baso % (Auto) 0.4, Absolute Neuts (auto) 3.4, Absolute Lymphs (auto) 0.87, Nucleated RBC % 0, Sodium 143, Potassium 4.0, Chloride 115 H, Carbon Dioxide 22.0, Anion Gap 6, BUN 32 H, Creatinine 1.80 H, Estim Creat Clear Calc 56.16, Est GFR (MDRD) Af Amer 50 L, Est GFR (MDRD) Non-Af 42 L, BUN/Creatinine Ratio 17.8, Glucose 94, Calcium 8.1 L , Total Bilirubin 1.70 H, AST 36, ALT 33, Alkaline Phosphatase 69, Total Protein 6.4, Albumin 3.0 L, Globulin 3.4, Albumin/Globulin Ratio 0.9, TSH 1.50 Micro: Microbiology 07/26/23 00:47 Mucosa - Nose Respiratory Panel (PCR) - Final 07/25/23 23:47 Urine Catheter - Catheter Legionella Antigen - Final 07/25/23 23:47 Urine Catheter - Catheter Streptococcus pneumoniae Antigen (M - Final Radiography Diagnostic Testing: Radiology Impression Chest X-Ray 07/25/23 19:36 IMPRESSION: Findings suggest edema or overlying pneumonia. This is slightly improved since the prior study. Electronically Signed: Hans Wong MD at 20:02 EDT , Chest CTA 07/25/23 20:14 IMPRESSION: 1. There is patchy bilateral groundglass infiltrate suggesting a bilateral pneumonia. 2. Pulmonary arteries are poorly attenuating. It is only 87 Hounsfield units. This is not diagnostic. Electronically Signed: Hans Wong MD at 20:54 EDT , Physical Exam Const alert and no apparent distress Constitutional Narrative: Middle-age male, obese, mild MRDD, otherwise laying fairly comfortably in bed, making appropriate eye contact with me and answer questions with short appropriate responses, in no acute distress. General Appearance: cooperative and comfortable HEENT normocephalic, head/scalp atraumatic, hearing grossly normal bilaterally, nasal mucous membranes and turbinates normal and moist oral mucous membranes Eyes PERRL, EOMs intact bilaterally and conjunctivae normal Neck full ROM Chest inspection of chest normal Resp normal respiratory effort and no use of accessory muscles Resp Narrative: Mildly decreased breath sounds bilaterally throughout, no wheezing or crackles noted. Cardio regular rate, regular rhythm, no murmurs and peripheral pulses 2+ throughout GI normal to inspection, nondistended, normoactive bowel sounds, soft to palpation, non-tender and non-distended Back/Spine normal ROM Extremity full ROM Extremity Narrative: +1-2 bilateral lower extremity edema noted. Skin no rashes or lesions noted Neuro moves all extremities and no focal motor deficits Speech: speech normal Psych mental status grossly normal Assessment & Plan Assessment/Plan (1) DVT (deep venous thrombosis): PLAN: Plan Patient is a 58-year-old male who presented to [facility] ED on 07/25/2023 with worsening chest pain. 1. Acute DVT and concern for acute PE, history of DVT/PE Previous history of DVT/PE, was on Eliquis but this had to be discontinued due to significant GI bleed as noted below. Unclear on when Eliquis was discontinued. Presented with symptoms concerning for DVT/PE. CTA chest on admit showed bilateral infiltrates of unclear etiology, unfortunately contrast timing was poor and it was a nondiagnostic study but PE cannot be ruled out. Lower extremity duplex ultrasound positive for right common femoral vein and rig ht posterior tibial pain DVT. TTE showed normal EF, mildly elevated right ventricular systolic pressure, no strain noted. ? Continue therapeutic Lovenox that was started on admission. Monitor CBC da óscar. Monitor for dyspnea and/or hypoxia on exertion. 2. Concern for community-acquired pneumonia ? Chest imaging findings on admit as noted above. Clinical symptoms not consistent with pneumonia. Infectious workup negative. Was started on azithromycin and ceftriaxone on admission for concern for CAP, discontinued on 07/25. Monitor. 3. Mild MRDD ? Per history. Lives in assisted living facility. At baseline mentation. 4. History of neurogenic bladder requiring intermittent straight cath ? Patient reported concern for urinary retention on hospital day 2 and nursing staff noted that straight cath was difficult, so Ga catheter was placed for him. Will likely plan to continue Ga catheter on discharge. 5. History of GI bleed ? Continue home PPI daily. Monitor daily CBC and monitor for signs of GI bleeding while on therapeutic Lovenox. Chronic medical conditions: ? Obesity: BMI 30 on admit. Complicates hospital course, care and prognosis. ? History of renal transplant for previous ESRD, now CKD stage IIIb: Follows with outpatient neurology. Creatinine 2.08 on admit, baseline creatinine 1.5- 1.9, improved to baseline on hospital day 2. Continue home tacrolimus. Given low suspicion for pneumonia, okay to continue home CellCept as well. ? Paroxysmal A-fib: Not chronically anticoagulated secondary to significant GI bleed history: Continue home aspirin, metoprolol, diltiazem. ? Nonobstructive CAD/hypertension/hyperlipidemia: Continue home aspirin, statin, metoprolol, diltiazem. ? Anxiety and depression: Continue home mirtazapine. ? Chronic liver disease of unclear etiology: Follows with outpatient gastroenterology. Continue home lactulose and rifaximin. DVT prophylaxis: Therapeutic Lovenox CODE STATUS: Full code, verified Expected disposition: Back to assisted living, 2 to 3 days Total clinical time spent by myself addressing the patient's medical issues, reviewing all the data, and collaborating with patient's care team: 35 minutes. Charges/Coding Visit Charges Inpatient E&M: 87160 Subs Hosp L2
[2023-07-26] MEDS: Lidocaine Jelly 2% 20 ML Syringe (URO-JET) 1 APPLIC TOPICAL (12:24)
--- NOTE | 2023-07-26 13:31 | CASEMGMT ---
STUART met with patient and his sister Chandrakant. STUART introduced self and role at [facility]. STUART confirmed the plan would be for patient to go back to [facility] and if skilled is recommended then she would want [facility]. Plan: d/c back to [facility] vs [facility]
--- NOTE | 2023-07-26 14:08 | CASEMGMT ---
Discharge Planning Referral sent to [place] at [facility] via [facility]. Joanna Lee, Discharge Planning Asst.
[2023-07-26] MEDS: Atorvastatin Calcium 40 MG Tablet PO (20:19)
[2023-07-26] MEDS: Mirtazapine 30 MG Tablet PO (20:20)
[2023-07-27] VITALS (8 sets, daily range): BP systolic 122–154; BP diastolic 68–86; PULSE 76–92; RESP 14–20; TEMP 36.3–36.7; O2SAT 92–98
[2023-07-27 05:51] LABS: Hemoglobin 10.5 g/dL (13.0-16.5); Mean Corp Hgb Conc 30.9 g/dL (32-36); Mean Corpuscular Volume 77.8 fL (80-94); Platelet Count 127 K/mm3 (150-450); RBC Distribution Width CV 18.9 % (11.6-14.6); RBC Distribution Width SD 53.1 fl (35.1-43.9); Red Blood Count 4.37 M/mm3 (4.6-6.2); White Blood Count 5.5 K/mm3 (4.4-11.0)
[2023-07-27 06:21] LABS: Anion Gap 6 (5-15); BUN 26 mg/dL (7-18); BUN/Creat Ratio 15.7 RATIO (10-20); Calcium,Total 8.4 mg/dL (8.5-10.1); Chloride 119 mmol/L (98-107); Creatinine, Serum 1.66 mg/dL (0.70-1.30); EST Glomerular Filtration Rate 46 mL/min (>60); Est Glom Filt Rate - Afr Amer 55 mL/min (>60); Glucose 99 mg/dL (74-106); Potassium 4.1 mmol/L (3.5-5.1); Sodium Level 147 mmol/L (136-145)
[2023-07-27] MEDS: Budesonide Respules 0.5 MG/2 ML AMPUL.NEB. INHALATION ×3 (08:03→20:01)
[2023-07-27] MEDS: Lactulose 20 GM/30 ML UDC 30 GM PO ×4 (09:09→20:04)
[2023-07-27] MEDS: Aspirin 81 MG TAB.CHEW PO (09:10)
[2023-07-27] MEDS: Enoxaparin 100 MG/ML Syringe SC ×2 (09:10→20:06)
[2023-07-27] MEDS: Tacrolimus 0.5 MG Capsule PO ×2 (09:10→20:05)
[2023-07-27] MEDS: dilTIAZem CD 120 MG Capsule PO (09:10)
[2023-07-27] MEDS: Mycophenolate Mofetil 250 MG Capsule 500 MG PO ×2 (09:11→20:05)
[2023-07-27] MEDS: Pantoprazole Sodium 40 MG Tablet PO ×2 (09:11→20:06)
[2023-07-27] MEDS: rifAXIMin 550 MG Tablet PO ×2 (09:11→20:06)
[2023-07-27] MEDS: Metoprolol Tartrate 25 MG Tablet PO ×2 (09:11→20:07)
--- NOTE | 2023-07-27 10:11 | CASEMGMT ---
Spoke with patients brother/POA (Alejo) to complete MCCOY form. MCCOY form explained to?Alejo who voiced understanding and signed form. Original form placed in pt?s chart and copy emailed to Alejo. Joanna Lee, Discharge Planning Asst
--- NOTE | 2023-07-27 11:59 | PN.HOSP_ITS ---
Reason for Visit Reason for Visit: Diagnoses Acute embolism and thrombosis of unspecified deep veins of unspecified lower ex tremity (07/25/23) Chest pain, unspecified (07/25/23) Objective Data Objective Data Vital Signs: Vital Signs Temp Pulse Resp BP Pulse Ox O2 Del Method 98.0 F 88 18 144/83 H 97 Room Air 07/27/23 09:05 07/27/23 09:11 07/27/23 09:05 07/27/23 09:05 07/27/23 09:05 07/27/23 09:05 Oxygen Delivery Method Room Air Weight: 100.6 kg Body Mass Index (BMI) 30.0 Intake & Output: Intake and Output for Last 24 Hours 07/25/23 07/26/23 07/27/23 23:59 23:59 23:59 Intake Total 563.75 / 563.75 220 / 220 Output Total 2450 / 2450 500 / 500 Balance -1886.25 / -1886.25 -280 / -280 Lab / Micro Data 07/27/23 05:31 07/27/23 05:31 Labs: Laboratory Results - last 24 hr 07/27/23 05:31: WBC 5.5, RBC 4.37 L, Hgb 10.5 L, Hct 34.0 L, MCV 77.8 L, MCH 24.0 L, MCHC 30.9 L, RDW Std Deviation 53.1 H, RDW Coeff of Anil 18.9 H, Plt Count 127 L, Sodium 147 H, Potassium 4.1, Chloride 119 H, Carbon Dioxide 22.0, Anion Gap 6, BUN 26 H, Creatinine 1.66 H, Estim Creat Clear Calc 61.00, Est GFR (MDRD) Af Amer 55 L, Est GFR (MDRD) Non-Af 46 L, BUN/Creatinine Ratio 15.7, Glucose 99, Calcium 8.4 L Micro: Microbiology 07/26/23 00:47 Mucosa - Nose Respiratory Panel (PCR) - Final 07/25/23 23:47 Urine Catheter - Catheter Legionella Antigen - Final 07/25/23 23:47 Urine Catheter - Catheter Streptococcus pneumoniae Antigen (M - Final Radiography Diagnostic Testing: Radiology Impression Venous Doppler Study 07/26/23 05:55 Interpretation Summary Acute deep vein thrombosis is noted in the right common femoral vein. Acute deep vein thrombosis is noted in the right posterior tibial vein. The remainder of the right lower extremity deep venous system is patent and compressible. Acute superficial thrombophlebitis is noted in the right great saphenous vein and the right accessory saphenous vein in the upper thigh. Deep veins of the left lower extremity are patent and compressible segmentally. There is no evidence of left lower extremity deep vein thrombosis. Valvular competence appears intact within the proximal deep venous system on the left . The left great saphenous vein appears patent and compressible segmentally. Ordering Physician: Jesiac Russo Performed By: Ethan Evans, RVT Echocardiogram 07/26/23 11:07 Interpretation Summary Normal LV size. Moderate concentric left ventricular hypertrophy. Left ventricular systolic function is normal. The left ventricular ejection fraction is 65 %. Infero-Basal: Hypokinetic Stage 3 diastolic dysfunction. Ordering Physician: Ralf Tsang Referring Physician: Mike Bella Performed By: Carly Solorzano, RDDEBORAH
[2023-07-27 14:31] LABS: Hematocrit 37.7 % (40-54); Hemoglobin 11.4 g/dL (13.0-16.5); Mean Corp Hgb Conc 30.2 g/dL (32-36); Mean Corpuscular Hgb 23.5 pg (27.0-32.0); Mean Corpuscular Volume 77.6 fL (80-94); Platelet Count 129 K/mm3 (150-450); RBC Distribution Width CV 19.2 % (11.6-14.6); RBC Distribution Width SD 53.2 fl (35.1-43.9); Red Blood Count 4.86 M/mm3 (4.6-6.2); White Blood Count 5.4 K/mm3 (4.4-11.0)
--- NOTE | 2023-07-27 15:04 | DCINST_ITS ---
Discharge Instructions Diet Discharge Diet: No restrictions Activity Discharge Activity: No Restrictions Weight Bearing Status: Full weight bearing Follow Up Care Test Results: Test results from this visit will be discussed in further detail at your follow- up appointment, if applicable. Discharge Plan Admission Admit Date/Time: 07/25/23 23:26 Primary Reason for Your Visit: Chest pain Attending Provider: Ralf Tsang Primary Care Provider: Mike Bella Consulting Providers: Jesica Russo Discharge Orders/Prescriptions Prescriptions: New enoxaparin 100 mg/mL Syringe 100 mg subcut BID Qty: 0 0RF Continued mycophenolate mofetil 500 MG tablet 500 mg PO BID multivitamin Tablet 1 tab PO DAILY lactulose 20 gram/30 mL solution 45 ml PO 4X/DAY Xifaxan 550 mg tablet 550 mg PO BID tacrolimus 0.5 mg capsule 0.5 mg PO BID mirtazapine 30 mg tablet 30 mg PO QHS diltiazem HCl [Cardizem LA] 120 mg tablet extended release 24 hr 120 mg PO DAILY Qty: 30 0RF metoprolol tartrate 25 mg Tablet 25 mg PO BID Qty: 0 0RF atorvastatin 40 mg tablet 40 mg PO QHS pantoprazole 40 mg tablet,delayed release (DR/EC) 40 mg PO DAILY Referrals / Follow Up: Mike Bella MD [Primary Care Provider] - Disposition Disposition (needs filled in before D/C Order can be placed): Assisted Living
--- NOTE | 2023-07-27 15:08 | DS.PCM_ITS ---
Providers Date of Admission: 07/25/23 Primary Care Physician: Dr. Mike Bella MD Reason For Visit: CHEST PAIN Diagnosis Discharge Diagnosis (1) DVT (deep venous thrombosis): Status: Acute Code(s): I82.409 - Acute embolism and thrombosis of unspecified deep veins of unspecified lower extremity Plan Patient is a 58-year-old male who presented to [facility] ED on 07/25/2023 with worsening chest pain. 1. Acute DVT and concern for acute PE, history of DVT/PE Previous history of DVT/PE, was on Eliquis but this had to be discontinued due to significant GI bleed as noted below. Unclear on when Eliquis was di scontinued. Presented with symptoms concerning for DVT/PE. CTA chest on admit showed bilateral infiltrates of unclear etiology, unfortunately contrast timing was poor and it was a nondiagnostic study but PE cannot be ruled out. Lower extremity duplex ultrasound positive for right common femoral vein and right posterior tibial pain DVT. TTE showed normal EF, mildly elevated right ventricular systolic pressure, no strain noted. ? Continue therapeutic Lovenox that was started on admission. Monitor CBC daily. Monitor for dyspnea and/or hypoxia on exertion. 2. Concern for community-acquired pneumonia ? Chest imaging findings on admit as noted above. Clinical symptoms not consistent with pneumonia. Infectious workup negative. Was started on azithromycin and ceftriaxone on admission for concern for CAP, discontinued on 07/25. Monitor. 3. Mild MRDD ? Per history. Lives in assisted living facility. At baseline mentation. 4. History of neurogenic bladder requiring intermittent straight cath ? Patient reported concern for urinary retention on hospital day 2 and nursing staff noted that straight cath was difficult, so Ga catheter was placed for him. Will likely plan to continue Ga catheter on discharge. 5. History of GI bleed ? Continue home PPI daily. Monitor daily CBC and monitor for signs of GI bleeding while on therapeutic Lovenox. Chronic medical conditions: ? Obesity: BMI 30 on admit. Complicates hospital course, care and prognosis. ? History of renal transplant for previous ESRD, now CKD stage IIIb: Follows with outpatient neurology. Creatinine 2.08 on admit, baseline creatinine 1.5- 1.9, improved to baseline on hospital day 2. Continue home tacrolimus. Given low suspicion for pneumonia, okay to continue home CellCept as well. ? Paroxysmal A-fib: Not chronically anticoagulated secondary to significant GI bleed history: Continue home aspirin, metoprolol, diltiazem. ? Nonobstructive CAD/hypertension/hyperlipidemia: Continue home aspirin, statin, metoprolol, diltiazem. ? Anxiety and depression: Continue home mirtazapine. ? Chronic liver disease of unclear etiology: Follows with outpatient gastroenterology. Continue home lactulose and rifaximin. DVT prophylaxis: Therapeutic Lovenox CODE STATUS: Full code, verified Expected disposition: Back to assisted living, 2 to 3 days Total clinical time spent by myself addressing the patient's medical issues, reviewing all the data, and collaborating with patient's care team: 35 minutes. Medications at Discharge Home Medications mycophenolate mofetil 500 mg tablet 500 mg PO BID TRANSPLANT ANTI-REJECTION 07/14/16 multivitamin 1 tab PO DAILY SUPPLEMENT 02/13/22 lactulose 20 gram/30 mL oral solution 45 ml PO 4X/DAY hepatic failure 06/13/22 rifaximin 550 mg tablet (Xifaxan) 550 mg PO BID ANTIBIOTIC 07/16/22 mirtazapine 30 mg tablet 30 mg PO QHS DEPRESSION 11/01/22 diltiazem HCl 120 mg tablet,extended release 24 hr (Cardizem LA) 120 mg PO DAILY BLOOD PRESSURE #30 tabs 01/01/23 metoprolol tartrate 25 mg tablet 25 mg PO BID BLOOD PRESSURE #0 tabs 01/01/23 tacrolimus 0.5 mg capsule, immediate-release 0.5 mg PO BID TRANSPLANT ANTI- REJECTION 01/15/23 atorvastatin 40 mg tablet 40 mg PO QHS 07/25/23 pantoprazole 40 mg tablet,delayed release 40 mg PO DAILY 07/25/23 enoxaparin 100 mg/mL subcutaneous syringe 100 mg subcut BID #0 mL 07/27/23 Weight / BMI Weight Weight: 100.6 kg Body Mass Index (BMI) 30.0 ABG / Lab / Microbiology Data 07/27/23 14:22 07/27/23 05:31 Laboratory: Laboratory Results - last 24 hr 07/27/23 05:31: WBC 5.5, RBC 4.37 L, Hgb 10.5 L, Hct 34.0 L, MCV 77.8 L, MCH 24.0 L, MCHC 30.9 L, RDW Std Deviation 53.1 H, RDW Coeff of Anil 18.9 H, Plt Count 127 L, Sodium 147 H, Potassium 4.1, Chloride 119 H, Carbon Dioxide 22.0, Anion Gap 6, BUN 26 H, Creatinine 1.66 H, Estim Creat Clear Calc 61.00, Est GFR (MDRD) Af Amer 55 L, Est GFR (MDRD) Non-Af 46 L, BUN/Creatinine Ratio 15.7, Glucose 99, Calcium 8.4 L 07/27/23 14:22: WBC 5.4, RBC 4.86, Hgb 11.4 L, Hct 37.7 L, MCV 77.6 L, MCH 23.5 L, MCHC 30.2 L, RDW Std Deviation 53.2 H, RDW Coeff of Anil 19.2 H, Plt Count 129 L Microbiology: Microbiology 07/26/23 00:47 Mucosa - Nose Respiratory Panel (PCR) - Final 07/25/23 23:47 Urine Catheter - Catheter Legionella Antigen - Final 07/25/23 23:47 Urine Catheter - Catheter Streptococcus pneumoniae Antigen (M - Final Radiography Diagnostic Testing: Radiology Impression Echocardiogram 07/26/23 11:07 Interpretation Summary Normal LV size. Moderate concentric left ventricular hypertrophy. Left ventricular systolic function is normal. The left ventricular ejection fraction is 65 %. Infero-Basal: Hypokinetic Stage 3 diastolic dysfunction. Ordering Physician: Ralf Tsang Referring Physician: Mike Bella Performed By: Carly Solorzano RDCS D/C Instructions Discharge Diet: No restrictions Weight Bearing Status: Full weight bearing Discharge Plan Admission Admit Date/Time: 07/25/23 23:26 Primary Reason for Your Visit: Chest pain Attending Provider: Ralf Tsang Primary Care Provider: Mike Bella Consulting Providers: Jesica Russo Discharge Orders/Prescriptions Prescriptions: New enoxaparin 100 mg/mL Syringe 100 mg subcut BID Qty: 0 0RF Continued mycophenolate mofetil 500 MG tablet 500 mg PO BID multivitamin Tablet 1 tab PO DAILY lactulose 20 gram/30 mL solution 45 ml PO 4X/DAY Xifaxan 550 mg tablet 550 mg PO BID tacrolimus 0.5 mg capsule 0.5 mg PO BID mirtazapine 30 mg tablet 30 mg PO QHS diltiazem HCl [Cardizem LA] 120 mg tablet extended release 24 hr 120 mg PO DAILY Qty: 30 0RF metoprolol tartrate 25 mg Tablet 25 mg PO BID Qty: 0 0RF atorvastatin 40 mg tablet 40 mg PO QHS pantoprazole 40 mg tablet,delayed release (DR/EC) 40 mg PO DAILY Referrals / Follow Up: Mike Bella MD [Primary Care Provider] - Disposition Disposition (needs filled in before D/C Order can be placed): Assisted Living
--- NOTE | 2023-07-27 15:35 | PN.HOSP_ITS ---
Reason for Visit Reason for Visit: Diagnoses Acute embolism and thrombosis of unspecified deep veins of unspecified lower ex tremity (07/25/23) Chest pain, unspecified (07/25/23) Subjective Subjective No acute overnight. Patient seen at bedside this morning. Sitting comfortably in bedside chair, in no acute distress. Patient was not able to talk this morning, wrote on a piece of paper that he lost his voice overnight. Denies any chest pain. Denied any other pain or discomfort at this time. He is asking me to call his sister to update her on his condition. No other acute concerns. Objective Data Objective Data Vital Signs: Vital Signs Temp Pulse Resp BP Pulse Ox O2 Del Method 97.9 F 79 18 122/75 H 96 Room Air 07/27/23 15:07 07/27/23 15:07 07/27/23 15:07 07/27/23 15:07 07/27/23 15:07 07/27/23 15:07 Oxygen Delivery Method Room Air Weight: 100.6 kg Body Mass Index (BMI) 30.0 Intake & Output: Intake and Output for Last 24 Hours 07/25/23 07/26/23 07/27/23 23:59 23:59 23:59 Intake Total 563.75 / 563.75 820 / 820 Output Total 2450 / 2450 1150 / 1150 Balance -1886.25 / -1886.25 -330 / -330 Lab / Micro Data 07/27/23 14:22 07/27/23 05:31 Labs: Laboratory Results - last 24 hr 07/27/23 05:31: WBC 5.5, RBC 4.37 L, Hgb 10.5 L, Hct 34.0 L, MCV 77.8 L, MCH 24.0 L, MCHC 30.9 L, RDW Std Deviation 53.1 H, RDW Coeff of Anil 18.9 H, Plt Count 127 L, Sodium 147 H, Potassium 4.1, Chloride 119 H, Carbon Dioxide 22.0, Anion Gap 6, BUN 26 H, Creatinine 1.66 H, Estim Creat Clear Calc 61.00, Est GFR (MDRD) Af Amer 55 L, Est GFR (MDRD) Non-Af 46 L, BUN/Creatinine Ratio 15.7, Glucose 99, Calcium 8.4 L 07/27/23 14:22: WBC 5.4, RBC 4.86, Hgb 11.4 L, Hct 37.7 L, MCV 77.6 L, MCH 23.5 L, MCHC 30.2 L, RDW Std Deviation 53.2 H, RDW Coeff of Anil 19.2 H, Plt Count 129 L Micro: Microbiology 07/26/23 00:47 Mucosa - Nose Respiratory Panel (PCR) - Final 07/25/23 23:47 Urine Catheter - Catheter Legionella Antigen - Final 07/25/23 23:47 Urine Catheter - Catheter Streptococcus pneumoniae Antigen (M - Final Radiography Diagnostic Testing: Radiology Impression Echocardiogram 07/26/23 11:07 Interpretation Summary Normal LV size. Moderate concentric left ventricular hypertrophy. Left ventricular systolic function is normal. The left ventricular ejection fraction is 65 %. Infero-Basal: Hypokinetic Stage 3 diastolic dysfunction. Ordering Physician: Ralf Tsang Referring Physician: Mike Bella Performed By: Carly Solorzano RDCS Physical Exam Const alert and no apparent distress Constitutional Narrative: Middle-age male, obese, mild MRDD, otherwise sitting comfortably in bedside chair, making appropriate eye contact with me but not answering questions today due to hoarse voice, no acute distress. General Appearance: cooperative and comfortable HEENT normocephalic, head/scalp atraumatic, hearing grossly normal bilaterally and nasal mucous membranes and turbinates normal Eyes PERRL, EOMs intact bilaterally and conjunctivae normal Neck full ROM Chest inspection of chest normal Resp normal respiratory effort and no use of accessory muscles Resp Narrative: Mildly decreased breath sounds bilaterally throughout, no wheezing or crackles noted. Cardio regular rate, regular rhythm, no murmurs and peripheral pulses 2+ throughout GI normal to inspection, nondistended, normoactive bowel sounds, soft to palpation, non-tender and non-distended Back/Spine normal ROM Extremity full ROM Extremity Narrative: +1-2 bilateral lower extremity edema noted. Skin no rashes or lesions noted Neuro moves all extremities and no focal motor deficits Speech: speech normal Psych mental status grossly normal Assessment & Plan Assessment/Plan (1) DVT (deep venous thrombosis): PLAN: Plan Patient is a 58-year-old male who presented to [facility] ED on 07/25/2023 with worsening chest pain. 1. Acute DVT and concern for acute PE, history of DVT/PE Previous history of DVT/PE, was on Eliquis but this had to be discontinued due to significant GI bleed as noted below. Unclear on when Eliquis was discon tinued. Presented with symptoms concerning for DVT/PE. CTA chest on admit showed bilateral infiltrates of unclear etiology, unfortunately contrast timing was poor and it was a nondiagnostic study but PE cannot be ruled out. Lower extremity duplex ultrasound positive for right common femoral vein and right posterior tibial pain DVT. TTE showed normal EF, mildly elevated right ventricular systolic pressure, no strain noted. ? Started on therapeutic Lovenox on admission, hemoglobin has remained stable. Patient breathing comfortably on room air with good oxygen saturations, per staff no significant dyspnea with mild exertion noted. Given patient's history of significant GI bleed on anticoagulation, cardiology consulted for further recommendations regarding anticoagulation versus possible need for IVC filter placement. 2. Concern for community-acquired pneumonia ? Chest imaging findings on admit as noted above. Clinical symptoms not consistent with pneumonia. Infectious workup negative. Was started on azithromycin and ceftriaxone on admission for concern for CAP, discontinued on 07/25. Monitor. 3. Mild MRDD ? Per history. Lives in assisted living facility. At baseline mentation. 4. History of neurogenic bladder requiring intermittent straight cath ? Patient reported concern for urinary retention on hospital day 2 and nursing staff noted that straight cath was difficult, so Ga catheter was placed for him. Will likely plan to continue Ga catheter on discharge. 5. History of GI bleed ? Patient hospitalized in December 2022 for NSTEMI type II suspected to be secondary to PE versus A-fib with RVR. Started on Eliquis at that time, was discharged from that hospitalization on 01/01/2023. Presented again to the hospital on 01/15 with worsening abdominal pain and was found to have decreasing hemoglobin. Hemoglobin decreased down to 6.8 and patient required 2 units packed red blood cells at that time. Was suspected the patient a lower GI bleed and Eliquis was discontinued. ? Hemoglobin has been stable around 10-11 during hospitalization. Continue home PPI twice daily. Continue to monitor daily CBC. Chronic medical conditions: ? Obesity: BMI 30 on admit. Complicates hospital course, care and prognosis. ? History of renal transplant for previous ESRD, now CKD stage IIIb: Follows with outpatient neurology. Creatinine 2.08 on admit, baseline creatinine 1.5- 1.9, improved to baseline on hospital day 2. Continue home tacrolimus. Given low suspicion for pneumonia, okay to continue home CellCept as well. ? Paroxysmal A-fib: Not chronically anticoagulated secondary to significant GI bleed history: Continue home aspirin, metoprolol, diltiazem. ? Nonobstructive CAD/hypertension/hyperlipidemia: Continue home aspirin, statin, metoprolol, diltiazem. ? Anxiety and depression: Continue home mirtazapine. ? Chronic liver disease of unclear etiology: Follows with outpatient gastroenterology. Continue home lactulose and rifaximin. DVT prophylaxis: Therapeutic Lovenox CODE STATUS: Full code, verified Expected disposition: Back to assisted living, 2 to 3 days Total clinical time spent by myself addressing the patient's medical issues, reviewing all the data, and collaborating with patient's care team: 35 minutes. Charges/Coding Visit Charges Inpatient E&M: 42226 Subs Hosp L2
--- NOTE | 2023-07-27 15:35 | CASEMGMT ---
Discharge Planning Therapy evals sent to [facility] via [facility]. Joanna Lee, Discharge Planning Asst.
[2023-07-27] MEDS: Atorvastatin Calcium 40 MG Tablet PO (20:06)
[2023-07-27] MEDS: Mirtazapine 30 MG Tablet PO (22:05)
[2023-07-28] VITALS (8 sets, daily range): BP systolic 114–142; BP diastolic 67–85; PULSE 67–88; RESP 14–20; TEMP 36.2–36.8; O2SAT 94–97; BMI 21.6
[2023-07-28] MEDS: Mag Hydrox/Al Hydrox/Simeth 30 ML UDC PO (00:36)
[2023-07-28] MEDS: Menthol/Lanolin/Calamine/Znox 113 GM Tube 1 APPLIC TOPICAL ×3 (03:32→21:43)
[2023-07-28] MEDS: Budesonide Respules 0.5 MG/2 ML AMPUL.NEB. INHALATION ×2 (07:36→19:47)
[2023-07-28 07:38] LABS: Hematocrit 36.9 % (40-54); Hemoglobin 11.1 g/dL (13.0-16.5); Mean Corp Hgb Conc 30.1 g/dL (32-36); Mean Corpuscular Hgb 23.7 pg (27.0-32.0); Mean Corpuscular Volume 78.7 fL (80-94); Platelet Count 132 K/mm3 (150-450); RBC Distribution Width CV 19.4 % (11.6-14.6); RBC Distribution Width SD 53.9 fl (35.1-43.9); Red Blood Count 4.69 M/mm3 (4.6-6.2); White Blood Count 6.4 K/mm3 (4.4-11.0)
[2023-07-28 07:56] LABS: Anion Gap 7 (5-15); BUN 22 mg/dL (7-18); BUN/Creat Ratio 14.2 RATIO (10-20); Calcium,Total 8.4 mg/dL (8.5-10.1); Chloride 116 mmol/L (98-107); Creatinine, Serum 1.55 mg/dL (0.70-1.30); EST Glomerular Filtration Rate 50 mL/min (>60); Est Glom Filt Rate - Afr Amer 60 mL/min (>60); Estimated Creatinine Clearance 54.49 ml/min; Glucose 89 mg/dL (74-106); Potassium 3.9 mmol/L (3.5-5.1); Sodium Level 143 mmol/L (136-145)
[2023-07-28] MEDS: Tacrolimus 0.5 MG Capsule PO ×2 (09:42→21:44)
[2023-07-28] MEDS: dilTIAZem CD 120 MG Capsule PO (09:43)
[2023-07-28] MEDS: Pantoprazole Sodium 40 MG Tablet PO ×2 (09:43→21:44)
[2023-07-28] MEDS: Aspirin 81 MG TAB.CHEW PO (09:43)
[2023-07-28] MEDS: Mycophenolate Mofetil 250 MG Capsule 500 MG PO ×2 (09:43→21:46)
[2023-07-28] MEDS: rifAXIMin 550 MG Tablet PO ×2 (09:43→21:44)
[2023-07-28] MEDS: Metoprolol Tartrate 25 MG Tablet PO ×2 (09:43→21:44)
[2023-07-28] MEDS: Enoxaparin 100 MG/ML Syringe SC (09:44)
[2023-07-28] MEDS: Lactulose 20 GM/30 ML UDC 30 GM PO ×4 (09:44→21:43)
--- NOTE | 2023-07-28 11:12 | CASEMGMT ---
[facility] is thinking they would like to skill patient. Patient would need insurance authorization. Anna KING
--- NOTE | 2023-07-28 12:52 | PN.HOSP_ITS ---
Reason for Visit Reason for Visit: Diagnoses Acute embolism and thrombosis of unspecified deep veins of unspecified lower ex tremity (07/25/23) Chest pain, unspecified (07/25/23) Subjective Subjective No acute events overnight. Patient seen at bedside this morning. Sitting up comfortably in bed, no acute distress. Continues to have difficulty with speaking, similar to yesterday. On chart review, patient has known history of vocal cord dysfunction and it appears he loses his voice fairly frequently. Patient denies any acute pain or discomfort this morning no other acute concerns. Objective Data Objective Data Vital Signs: Vital Signs Temp Pulse Resp BP Pulse Ox O2 Del Method 97.7 F L 86 18 142/84 H 96 Room Air 07/28/23 09:05 07/28/23 09:43 07/28/23 09:05 07/28/23 09:43 07/28/23 09:05 07/28/23 09:05 Oxygen Delivery Method Room Air Weight: 72.4 kg Body Mass Index (BMI) 21.6 Intake & Output: Intake and Output for Last 24 Hours 07/26/23 07/27/23 07/28/23 23:59 23:59 23:59 Intake Total 563.75 / 563.75 1220 / 1340 480 / 480 Output Total 2450 / 2450 1625 / 2225 1700 / 1700 Balance -1886.25 / -1886.25 -405 / -885 -1220 / -1220 Lab / Micro Data 07/28/23 06:35 07/28/23 06:35 Labs: Laboratory Results - last 24 hr 07/27/23 14:22: WBC 5.4, RBC 4.86, Hgb 11.4 L, Hct 37.7 L, MCV 77.6 L, MCH 23.5 L, MCHC 30.2 L, RDW Std Deviation 53.2 H, RDW Coeff of Anil 19.2 H, Plt Count 129 L 07/28/23 06:35: WBC 6.4, RBC 4.69, Hgb 11.1 L, Hct 36.9 L, MCV 78.7 L, MCH 23.7 L, MCHC 30.1 L, RDW Std Deviation 53.9 H, RDW Coeff of Anil 19.4 H, Plt Count 132 L, Sodium 143, Potassium 3.9, Chloride 116 H, Carbon Dioxide 20.0 L, Anion Gap 7, BUN 22 H, Creatinine 1.55 H, Estim Creat Clear Calc 54.49, Est GFR (MDRD) Af Amer 60, Est GFR (MDRD) Non-Af 50 L, BUN/Creatinine Ratio 14.2, Glucose 89, Calcium 8.4 L Micro: Microbiology 07/26/23 00:47 Mucosa - Nose Respiratory Panel (PCR) - Final 07/25/23 23:47 Urine Catheter - Catheter Legionella Antigen - Final 07/25/23 23:47 Urine Catheter - Catheter Streptococcus pneumoniae Antigen (M - Final Physical Exam Const alert and no apparent distress Constitutional Narrative: Middle-age male, obese, mild MRDD, otherwise sitting comfortably in bed, making appropriate eye contact with me but not answering questions today due to hoarse voice, no acute distress. General Appearance: cooperative and comfortable HEENT normocephalic, head/scalp atraumatic, hearing grossly normal bilaterally and nasal mucous membranes and turbinates normal Eyes PERRL, EOMs intact bilaterally and conjunctivae normal Neck full ROM Chest inspection of chest normal Resp normal respiratory effort and no use of accessory muscles Resp Narrative: Mildly decreased breath sounds bilaterally throughout, no wheezing or crackles noted. Cardio regular rate, regular rhythm, no murmurs and peripheral pulses 2+ throughout GI normal to inspection, nondistended, normoactive bowel sounds, soft to palpation, non-tender and non-distended Back/Spine normal ROM Extremity full ROM Extremity Narrative: Trace lower extremity edema noted. Skin no rashes or lesions noted Neuro moves all extremities and no focal motor deficits Speech: speech normal Psych mental status grossly normal Assessment & Plan Assessment/Plan (1) DVT (deep venous thrombosis): PLAN: Plan Patient is a 58-year-old male who presented to [facility] ED on 07/25/2023 with worsening chest pain. 1. Acute DVT and concern for acute PE, history of DVT/PE ? On chart review, patient had DVT/PE back in 2017. Appears that he completed a 3-month course of Xarelto and tolerated this without issue. Patient was then diagnosed with new onset A-fib in December 2022, was started on Eliquis for this. He unfortunately had a GI bleed with anemia requiring blood transfusion on Eliquis and the Eliquis was discontinued. Has not had any further bleeding episodes since then. ? Presented on this admission with symptoms concerning for DVT/PE. CTA chest on admit showed bilateral infiltrates of unclear etiology, unfortunately contrast timing was poor and it was a nondiagnostic study but PE cannot be ruled out. Lower extremity duplex ultrasound positive for right common femoral vein and right posterior tibial pain DVT. TTE showed normal EF, mildly elevated right ventricular systolic pressure, no strain noted. ? Started on therapeutic Lovenox on admission, hemoglobin has remained stable since then. Patient pretty comfortably on room air with good oxygen saturations, has had no dyspnea with exertion. ? Since patient previously did well with Xarelto, will switch to Xarelto on evening of 07/27. Will forego DVT loading dose given patient is very stable and high risk for bleeding, will start on Xarelto 20 mg at night. Continue to monitor. 2. Concern for community-acquired pneumonia ? Chest imaging findings on admit as noted above. Clinical symptoms not consistent with pneumonia. Infectious workup negative. Was started on azithromycin and ceftriaxone on admission for concern for CAP, discontinued on 07/25. Monitor. 3. Mild MRDD ? Per history. Lives in assisted living facility. At baseline mentation. 4. History of neurogenic bladder requiring intermittent straight cath ? Patient straight cath himself at his assisted living facility, has done this for many years. Nursing staff noted that patient is a difficult straight cath so Ga was placed on admission. Will plan to continue Ga until day of discharge and likely remove at that time, with plan for patient to continue straight cathing as previously facility. 5. History of GI bleed ? Patient hospitalized in December 2022 for NSTEMI type II suspected to be secondary to PE versus A-fib with RVR. Started on Eliquis at that time, was discharged from that hospitalization on 01/01/2023. Presented again to the hospital on 01/15 with worsening abdominal pain and was found to have decreasing hemoglobin. Hemoglobin decreased down to 6.8 and patient required 2 units packed red blood cells at that time. Was suspected the patient a lower GI bleed and Eliquis was discontinued. ? Hemoglobin has been stable around 10-11 during hospitalization. Continue home PPI twice daily. Continue to monitor daily CBC. 6. Mild debility ? PT/OT/case management following. Based on therapy scores, his assisted living facility recommended that he be placed in the SNF side of the facility at discharge. Medically stable for discharge on 07/27, awaiting placement. Chronic medical conditions: ? Obesity: BMI 30 on admit. Complicates hospital course, care and prognosis. ? History of renal transplant for previous ESRD, now CKD stage IIIb: Follows with outpatient neurology. Creatinine 2.08 on admit, baseline creatinine 1.5- 1.9, improved to baseline on hospital day 2. Continue home tacrolimus. Given low suspicion for pneumonia, okay to continue home CellCept as well. ? Paroxysmal A-fib: Not chronically anticoagulated secondary to GI bleed history. Continue home aspirin, metoprolol, diltiazem. ? Nonobstructive CAD/hypertension/hyperlipidemia: Continue home aspirin, statin, metoprolol, diltiazem. ? Anxiety and depression: Continue home mirtazapine. ? Chronic liver disease of unclear etiology: Follows with outpatient gastroenterology. Continue home lactulose and rifaximin. DVT prophylaxis: Xarelto CODE STATUS: Full code, verified Expected disposition: SNF, medically ready on 07/27, awaiting placement ? Patient notably was admitted under observation status for chest pain. Was found to have DVT with suspected PE as noted above as well as debility from baseline and qualifies for inpatient status. Changed to inpatient status on 07/27. Total clinical time spent by myself addressing the patient's medical issues, reviewing all the data, and collaborating with patient's care team: 35 minutes. Charges/Coding Visit Charges Inpatient E&M: 67460 Subs Hosp L2
--- NOTE | 2023-07-28 15:21 | CASEMGMT ---
[facility] received authorization for patient. STUART notified physician via [facility]. Anna KING
--- NOTE | 2023-07-28 15:28 | CASEMGMT ---
Patient will be going to [facility] today. SW called patient's sister Chandrakant and let her know that [facility] would like to skill patient and insurance has already approved patient. Therefore physician will send patient today. Chandrakant was okay with this and asked that physician call their brother Kalyan. STUART told her SW will pass this message along to the physician. STUART completed a 7000 in [employer] system. Plan: d/c to [facility] under skilled level of care on a convalescent stay. Physicians will transport patient. Anna KING
--- NOTE | 2023-07-28 15:45 | CASEMGMT ---
Patient is not going to be able to go to [facility] today as patient is observation status and he will trip for a further review due to his diagnosis of MRDD. SW notified physician. Anna KING
--- NOTE | 2023-07-28 16:10 | CASEMGMT ---
Social Work Phone call to [facility] and to pt's sister updating that pt will need evaluated by the [place] board of DD prior to admission to SNF. AHMET Hernandez
[2023-07-28] MEDS: Rivaroxaban 20 MG Tablet PO (17:14)
[2023-07-28] MEDS: Atorvastatin Calcium 40 MG Tablet PO (21:44)
[2023-07-28] MEDS: Mirtazapine 30 MG Tablet PO (21:46)
[2023-07-29] VITALS (8 sets, daily range): BP systolic 104–155; BP diastolic 61–85; PULSE 73–85; RESP 16–20; TEMP 36.4–37; O2SAT 94–98; BMI 29.4
[2023-07-29] MEDS: Menthol/Lanolin/Calamine/Znox 113 GM Tube 1 APPLIC TOPICAL ×3 (05:08→21:31)
[2023-07-29 07:02] LABS: Hematocrit 36.4 % (40-54); Hemoglobin 10.8 g/dL (13.0-16.5); Mean Corp Hgb Conc 29.7 g/dL (32-36); Mean Corpuscular Hgb 23.4 pg (27.0-32.0); Mean Corpuscular Volume 78.8 fL (80-94); Platelet Count 127 K/mm3 (150-450); RBC Distribution Width CV 19.2 % (11.6-14.6); RBC Distribution Width SD 53.7 fl (35.1-43.9); Red Blood Count 4.62 M/mm3 (4.6-6.2); White Blood Count 4.8 K/mm3 (4.4-11.0)
[2023-07-29] MEDS: Budesonide Respules 0.5 MG/2 ML AMPUL.NEB. INHALATION ×2 (07:22→20:19)
[2023-07-29 07:53] LABS: Anion Gap 8 (5-15); BUN 20 mg/dL (7-18); BUN/Creat Ratio 11.8 RATIO (10-20); Calcium,Total 8.2 mg/dL (8.5-10.1); Chloride 117 mmol/L (98-107); Creatinine, Serum 1.69 mg/dL (0.70-1.30); EST Glomerular Filtration Rate 45 mL/min (>60); Est Glom Filt Rate - Afr Amer 54 mL/min (>60); Estimated Creatinine Clearance 59.34 ml/min; Glucose 100 mg/dL (74-106); Potassium 3.6 mmol/L (3.5-5.1); Sodium Level 143 mmol/L (136-145)
[2023-07-29] MEDS: dilTIAZem CD 120 MG Capsule PO (08:54)
[2023-07-29] MEDS: Tacrolimus 0.5 MG Capsule PO ×2 (08:54→21:32)
[2023-07-29] MEDS: Mycophenolate Mofetil 250 MG Capsule 500 MG PO ×2 (08:54→21:35)
[2023-07-29] MEDS: Metoprolol Tartrate 25 MG Tablet PO ×2 (08:54→21:33)
[2023-07-29] MEDS: rifAXIMin 550 MG Tablet PO ×2 (08:55→21:34)
[2023-07-29] MEDS: Aspirin 81 MG TAB.CHEW PO (08:55)
[2023-07-29] MEDS: Pantoprazole Sodium 40 MG Tablet PO ×2 (08:55→21:34)
[2023-07-29] MEDS: Lactulose 20 GM/30 ML UDC 30 GM PO ×4 (08:55→21:31)
--- NOTE | 2023-07-29 09:36 | CASEMGMT ---
STUART asked [facility] if patient could return to assisted living and get therapy through his part B. [facility] said that would be fine. Should therapy in assisted end up not be enough [facility] could get pre-cert and move patient to the skilled side also. STUART notified physician. Plan: d/c back to [facility] assisted living with PT/OT through patient's part B. Physicians will transport patient. Anna Kirby [employer]ATIONS WORKER CHRISTINE
--- NOTE | 2023-07-29 13:23 | PN.HOSP_ITS ---
Reason for Visit Reason for Visit: Diagnoses Acute embolism and thrombosis of unspecified deep veins of unspecified lower ex tremity (07/25/23) Chest pain, unspecified (07/25/23) Subjective Subjective No acute events overnight. Patient seen at bedside this morning. Sitting up comfortably in bedside chair, in no acute distress. Voice remained somewhat soft but was improved today from previous. Patient denied any acute concerns this morning. Spoke with patient's brother over the phone earlier this afternoon. Brother is POA for the patient. Brother noted that patient has seemed to be more sedentary recently and he and family were hoping that patient would qualify for the SNF side [facility] on discharge. Noted to him that patient was okay for discharge to assisted living side with therapy services there as needed, but brother and family preferred to have patient complete pre-CERT for SNF side. Objective Data Objective Data Vital Signs: Vital Signs Temp Pulse Resp BP Pulse Ox O2 Del Method 97.5 F L 84 18 155/83 H 98 Room Air 07/29/23 09:25 07/29/23 09:25 07/29/23 09:25 07/29/23 09:25 07/29/23 09:25 07/29/23 09:25 Oxygen Delivery Method Room Air Weight: 98.5 kg Body Mass Index (BMI) 29.4 Intake & Output: Intake and Output for Last 24 Hours 07/27/23 07/28/23 07/29/23 23:59 23:59 23:59 Intake Total 1220 / 1340 720 / 720 Output Total 1625 / 2225 1950 / 1950 Balance -405 / -885 -1230 / -1230 Lab / Micro Data 07/29/23 06:17 07/29/23 06:17 Labs: Laboratory Results - last 24 hr 07/29/23 06:17: WBC 4.8, RBC 4.62, Hgb 10.8 L, Hct 36.4 L, MCV 78.8 L, MCH 23.4 L, MCHC 29.7 L, RDW Std Deviation 53.7 H, RDW Coeff of Anil 19.2 H, Plt Count 127 L, Sodium 143, Potassium 3.6, Chloride 117 H, Carbon Dioxide 18.0 L, Anion Gap 8, BUN 20 H, Creatinine 1.69 H, Estim Creat Clear Calc 59.34, Est GFR (MDRD) Af Amer 54 L, Est GFR (MDRD) Non-Af 45 L, BUN/Creatinine Ratio 11.8, Glucose 100, Calcium 8.2 L Micro: Microbiology 07/26/23 00:47 Mucosa - Nose Respiratory Panel (PCR) - Final 07/25/23 23:47 Urine Catheter - Catheter Legionella Antigen - Final 07/25/23 23:47 Urine Catheter - Catheter Streptococcus pneumoniae Antigen (M - Final Physical Exam Const alert and no apparent distress Constitutional Narrative: Middle-age male, obese, mild MRDD, otherwise sitting up comfortably in bed, voice improved today and was able to answer questions appropriately, no acute distress. General Appearance: cooperative and comfortable HEENT normocephalic, head/scalp atraumatic, hearing grossly normal bilaterally and nasal mucous membranes and turbinates normal Eyes PERRL, EOMs intact bilaterally and conjunctivae normal Neck full ROM Chest inspection of chest normal Resp normal respiratory effort and no use of accessory muscles Resp Narrative: Good breath sounds bilaterally throughout, improved from admission. Cardio regular rate, regular rhythm, no murmurs and peripheral pulses 2+ throughout GI normal to inspection, nondistended, normoactive bowel sounds, soft to palpation, non-tender and non-distended Back/Spine normal ROM Extremity full ROM Extremity Narrative: Trace lower extremity edema noted, stable. Skin no rashes or lesions noted Neuro moves all extremities and no focal motor deficits Speech: speech normal Psych mental status grossly normal Assessment & Plan Assessment/Plan (1) DVT (deep venous thrombosis): PLAN: Plan Patient is a 58-year-old male who presented to [facility] ED on 07/25/2023 with worsening chest pain. 1. Acute DVT and concern for acute PE, history of DVT/PE ? On chart review, patient had DVT/PE back in 2018. Appears that he completed a 3-month course of Xarelto and tolerated this without issue. Patient was then diagnosed with new onset A-fib in December 2022, was started on Eliquis for this. He unfortunately had a GI bleed with anemia requiring blood transfusion on Eliquis and the Eliquis was discontinued. Has not had any further bleeding episodes since then. ? Presented on this admission with symptoms concerning for DVT/PE. CTA chest on admit showed bilateral infiltrates of unclear etiology, unfortunately contrast timing was poor and it was a nondiagnostic study but PE cannot be ruled out. Lower extremity duplex ultrasound positive for right common femoral vein and right posterior tibial pain DVT. TTE showed normal EF, mildly elevated right ventricular systolic pressure, no strain noted. ? Started on therapeutic Lovenox on admission, hemoglobin has remained stable since then. Patient pretty comfortably on room air with good oxygen saturations, has had no dyspnea with exertion. ? Switched from therapeutic Lovenox to Xarelto on evening of 07/27. Given elevated risk of bleeding and patient stable on room air, did not do DVT loading dose and started with Xarelto 20 mg at night. Patient remained stable and hemoglobin stable. Will plan to discharge patient on this dose of Xarelto. 2. History of neurogenic bladder requiring intermittent straight cath ? Patient straight cathed himself at his assisted living facility, has done this for many years. Nursing staff noted that patient is a difficult straight cath so Ga was placed on admission. ? Patient has complex history including recurrent UTIs, and it appears that he has difficulty straight cathing himself on a regular basis. ? Will plan to continue Ga catheter on discharge. Recommend outpatient follow-up with urology about 1 to 2 weeks postdischarge. 3. Mild debility, suspected need for extended hospital stay ? PT/OT/case management following. Based on therapy scores, plan was to discharge back to the assisted living side [facility] with therapy services to see him as needed there. However, after discussion with patient's brother on 07/28, brother and family would like to complete pre-CERT for patient for the SNF side of the facility. Unfortunately, because of patient's disability he will likely not be able to complete it until sometime next week. 4. History of GI bleed ? Patient hospitalized in December 2022 for NSTEMI type II suspected to be secondary to PE versus A-fib with RVR. Started on Eliquis at that time, was discharged from that hospitalization on 01/01/2023. Presented again to the hospital on 01/15 with worsening abdominal pain and was found to have decreasing hemoglobin. Hemoglobin decreased down to 6.8 and patient required 2 units packed red blood cells at that time. Was suspected the patient a lower GI bleed and Eliquis was discontinued. ? Hemoglobin has been stable around 10-11 during hospitalization. Continue home PPI twice daily. Continue to monitor daily CBC. 5. Concern for community-acquired pneumonia, resolved ? Chest imaging findings on admit as noted above. Clinical symptoms not consistent with pneumonia. Infectious workup negative. Was started on azithromycin and ceftriaxone on admission for concern for CAP, discontinued on 07/25. Stable. 6. Mild MRDD ? Per history. Lives in assisted living facility. At baseline mentation. Chronic medical conditions: ? Obesity: BMI 30 on admit. Complicates hospital course, care and prognosis. ? History of renal transplant for previous ESRD, now CKD stage IIIb: Follows with outpatient neurology. Creatinine 2.08 on admit, baseline creatinine 1.5- 1.9, improved to baseline on hospital day 2. Continue home tacrolimus. Given low suspicion for pneumonia, okay to continue home CellCept as well. ? Paroxysmal A-fib: Not chronically anticoagulated secondary to GI bleed history. Continue home aspirin, metoprolol, diltiazem. ? Nonobstructive CAD/hypertension/hyperlipidemia: Continue home aspirin, statin, metoprolol, diltiazem. ? Anxiety and depression: Continue home mirtazapine. ? Chronic liver disease of unclear etiology: Follows with outpatient gastroenterology. Continue home lactulose and rifaximin. DVT prophylaxis: Xarelto CODE STATUS: Full code, verified Expected disposition: SNF, medically ready on 07/27, awaiting placement Total clinical time spent by myself addressing the patient's medical issues, reviewing all the data, and collaborating with patient's care team: 35 minutes. Charges/Coding Visit Charges Inpatient E&M: 97639 Subs Hosp L2
--- NOTE | 2023-07-29 13:51 | CASEMGMT ---
Physician spoke with patient's brother Kalyan and he would like patient to go to the group home at [facility]. SW called Kalyan and explained that process of the PASRR and patient requiring further review from the state and Board of DD. SW explained patient will be stuck in the hospital until that time which could be a week. Kalyan acknowledged understanding and expressed concern with patient returning to [place] with a harman as that is new for patient. He also expressed he wants patient to have the daily therapy as patient has a habit of not doing anything in [place]. STUART let Kalyan know that SW will start the process and someone will be in touch with him when patient is able to be discharged. SW notified physician. Plan: [facility]. Patient is observation status so SW had to complete a PASRR. Patient has mild intellectual disability therefore, patient will trigger for further review from Board of DD after the state reviews. Anna Kirby INVASIVE CARDIOVASCULAR TECHNOLOGIST CHRISTINE
[2023-07-29] MEDS: Rivaroxaban 20 MG Tablet PO (18:36)
[2023-07-29] MEDS: Mirtazapine 30 MG Tablet PO (21:34)
[2023-07-29] MEDS: Atorvastatin Calcium 40 MG Tablet PO (21:35)
[2023-07-30] VITALS (8 sets, daily range): BP systolic 107–145; BP diastolic 59–86; PULSE 70–90; RESP 16–20; TEMP 36.3–36.6; O2SAT 92–98; BMI 29.3
[2023-07-30] MEDS: Menthol/Lanolin/Calamine/Znox 113 GM Tube 1 APPLIC TOPICAL ×3 (05:08→21:32)
[2023-07-30 07:54] LABS: Hematocrit 36.7 % (40-54); Hemoglobin 10.9 g/dL (13.0-16.5); Mean Corp Hgb Conc 29.7 g/dL (32-36); Mean Corpuscular Hgb 23.3 pg (27.0-32.0); Mean Corpuscular Volume 78.6 fL (80-94); Platelet Count 133 K/mm3 (150-450); RBC Distribution Width CV 19.2 % (11.6-14.6); RBC Distribution Width SD 53.6 fl (35.1-43.9); Red Blood Count 4.67 M/mm3 (4.6-6.2); White Blood Count 4.7 K/mm3 (4.4-11.0)
[2023-07-30 08:07] LABS: Anion Gap 7 (5-15); BUN 23 mg/dL (7-18); BUN/Creat Ratio 14.5 RATIO (10-20); Calcium,Total 8.4 mg/dL (8.5-10.1); Chloride 117 mmol/L (98-107); Creatinine, Serum 1.59 mg/dL (0.70-1.30); EST Glomerular Filtration Rate 48 mL/min (>60); Est Glom Filt Rate - Afr Amer 58 mL/min (>60); Estimated Creatinine Clearance 62.99 ml/min; Glucose 85 mg/dL (74-106); Potassium 4.1 mmol/L (3.5-5.1); Sodium Level 142 mmol/L (136-145)
[2023-07-30] MEDS: Budesonide Respules 0.5 MG/2 ML AMPUL.NEB. INHALATION ×2 (08:10→19:15)
[2023-07-30] MEDS: Aspirin 81 MG TAB.CHEW PO (08:52)
[2023-07-30] MEDS: rifAXIMin 550 MG Tablet PO ×2 (08:52→21:34)
[2023-07-30] MEDS: Mycophenolate Mofetil 250 MG Capsule 500 MG PO ×2 (08:52→21:33)
[2023-07-30] MEDS: dilTIAZem CD 120 MG Capsule PO (08:52)
[2023-07-30] MEDS: Lactulose 20 GM/30 ML UDC 30 GM PO ×4 (08:53→21:33)
[2023-07-30] MEDS: Metoprolol Tartrate 25 MG Tablet PO ×2 (08:53→21:35)
[2023-07-30] MEDS: Tacrolimus 0.5 MG Capsule PO ×2 (08:54→21:34)
[2023-07-30] MEDS: Pantoprazole Sodium 40 MG Tablet PO ×2 (08:54→21:34)
[2023-07-30] MEDS: Acetaminophen 325 MG Tablet 650 MG PO (10:12)
[2023-07-30] MEDS: Rivaroxaban 20 MG Tablet PO (17:01)
--- NOTE | 2023-07-30 20:29 | PCM.PN.HOSP ---
Reason for Visit Reason for Visit: Diagnoses Acute embolism and thrombosis of unspecified deep veins of unspecified lower extremity (07/25/23) Chest pain, unspecified (07/25/23) Subjective Subjective Patient was seen and examined today, he has evidence of hematuria in his Ga catheter bag, I have elected to keep him on Eliquis for the time being, if this hematuria worsens, he will have to be placed on heparin. Patient is unable to return to assisted living and family requested that he go to [facility]. We are awaiting approval for this which will probably happen next week at the earliest. Objective Data Objective Data Vital Signs: Vital Signs Temp Pulse Resp BP Pulse Ox O2 Del Method 97.5 F L 73 16 144/86 H 98 Room Air 07/30/23 14:07/30/23 14:03 07/30/23 14:03 07/30/23 14:03 07/30/23 14:03 07/30/23 14:03 Oxygen Delivery Method Room Air Weight: 98.2 kg Body Mass Index (BMI) 29.3 Intake & Output: Intake and Output for Last 24 Hours 07/28/23 07/29/23 07/30/23 23:59 23:59 23:59 Intake Total 720 / 720 720 / 720 300 / 300 Output Total 1950 / 1950 1225 / 1225 1100 / 1100 Balance -1230 / -1230 -505 / -505 -800 / -800 Lab / Micro Data 07/30/23 06:10 07/30/23 06:10 Labs: Laboratory Results - last 24 hr 07/30/23 06:10: WBC 4.7, RBC 4.67, Hgb 10.9 L, Hct 36.7 L, MCV 78.6 L, MCH 23.3 L, MCHC 29.7 L, RDW Std Deviation 53.6 H, RDW Coeff of Anil 19.2 H, Plt Count 133 L, Sodium 142, Potassium 4.1, Chloride 117 H, Carbon Dioxide 18.0 L, Anion Gap 7, BUN 23 H, Creatinine 1.59 H, Estim Creat Clear Calc 62.99, Est GFR (MDRD) Af Amer 58 L, Est GFR (MDRD) Non-Af 48 L, BUN/Creatinine Ratio 14.5, Glucose 85, Calcium 8.4 L Micro: Microbiology 07/26/23 00:47 Mucosa - Nose Respiratory Panel (PCR) - Final 07/25/23 23:47 Urine Catheter - Catheter Legionella Antigen - Final 07/25/23 23:47 Urine Catheter - Catheter Streptococcus pneumoniae Antigen (M - Final Physical Exam Const alert and no apparent distress Constitutional Narrative: Patient has evidence of cognitive impairment which is chronic, he is able to answer simple questions and carry on conversations however General Appearance: cooperative, well kempt and well developed Orientation / Consciousness: awake, oriented to person and oriented to place HEENT normocephalic, head/scalp atraumatic and moist oral mucous membranes Eyes PERRL, EOMs intact bilaterally and conjunctivae normal Neck supple, no JVD, thyroid normal and no carotid bruits General: trachea midline Resp normal respiratory effort, no retractions, no use of accessory muscles and clear to auscultation bilaterally Auscultation: Negative for rales, rhonchi or wheezes Cardio regular rate, regular rhythm, S1 normal heart sound, S2 normal heart sound, no murmurs, no rub and no gallops GI normal to inspection, nondistended, normoactive bowel sounds, soft to palpation, non-tender and non-distended Extremity no clubbing, cyanosis or edema Skin no rashes or lesions noted General Skin Exam: no breakdown Neuro oriented x3, CN's II-XII intact bilaterally, moves all extremities, no focal motor deficits and no sensory deficits noted Sensorium / Orientation: awake and alert Speech: speech normal Psych Psych Narrative: Patient has evidence of cognitive impairment/MRDD, he is pleasant and answers simple questions appropriately Assessment & Plan Assessment/Plan (1) DVT (deep venous thrombosis): PLAN: Plan 1. DVT of the right leg-patient remains on Xarelto at this time, hematuria will be monitored #2 hematuria-probably secondary to traumatic Ga insertion versus bladder irritation from Ga-this will be monitored, if it increases patient may have to be placed on heparin and or transfer to facility where he can have a IVC filter inserted. We do not have the capability this weekend and if inserting an IVC filter. #3 neurogenic bladder-patient's Ga will remain in place at this time #4 MRDD/cognitive [id number]-[id number] care, management, recovery, and prognosis Total clinical time spent by myself addressing the patient's medical issues, reviewing all of his data, and collaborating with patient's care team: 35 minutes Charges/Coding Visit Charges Inpatient E&M: 16197 Subs Hosp L2
[2023-07-30] MEDS: 0.9% Saline Lock 10 ML Syringe IV (21:32)
[2023-07-30] MEDS: Mirtazapine 30 MG Tablet PO (21:35)
[2023-07-30] MEDS: Atorvastatin Calcium 40 MG Tablet PO (21:36)
[2023-07-31] VITALS (9 sets, daily range): BP systolic 107–148; BP diastolic 65–93; PULSE 69–78; RESP 16–20; TEMP 36.4–36.9; O2SAT 95–99; BMI 28.5
[2023-07-31] MEDS: Menthol/Lanolin/Calamine/Znox 113 GM Tube 1 APPLIC TOPICAL ×3 (05:12→21:16)
[2023-07-31] MEDS: Budesonide Respules 0.5 MG/2 ML AMPUL.NEB. INHALATION ×2 (07:18→20:19)
[2023-07-31 07:19] LABS: Hematocrit 38.1 % (40-54); Hemoglobin 11.8 g/dL (13.0-16.5)
[2023-07-31] MEDS: Aspirin 81 MG TAB.CHEW PO (08:50)
[2023-07-31] MEDS: Mycophenolate Mofetil 250 MG Capsule 500 MG PO ×2 (08:51→21:19)
[2023-07-31] MEDS: Metoprolol Tartrate 25 MG Tablet PO ×2 (08:51→21:19)
[2023-07-31] MEDS: Lactulose 20 GM/30 ML UDC 30 GM PO ×4 (08:51→21:16)
[2023-07-31] MEDS: dilTIAZem CD 120 MG Capsule PO (08:51)
[2023-07-31] MEDS: rifAXIMin 550 MG Tablet PO ×2 (08:52→21:19)
[2023-07-31] MEDS: Tacrolimus 0.5 MG Capsule PO ×2 (08:52→21:20)
[2023-07-31] MEDS: Pantoprazole Sodium 40 MG Tablet PO ×2 (08:52→21:20)
[2023-07-31] MEDS: Acetaminophen 325 MG Tablet 650 MG PO (10:38)
--- NOTE | 2023-07-31 13:57 | PN.HOSP_ITS ---
Reason for Visit Reason for Visit: Diagnoses Acute embolism and thrombosis of unspecified deep veins of unspecified lower ex tremity (07/25/23) Chest pain, unspecified (07/25/23) Subjective Subjective Patient was seen and examined today, he does not complain of any shortness of breath or chest discomfort, patient still has hematuria in his Ga, hemoglobin today was not significantly changed from his hemoglobin yesterday. Objective Data Objective Data Vital Signs: Vital Signs Temp Pulse Resp BP Pulse Ox O2 Del Method 97.6 F L 74 16 148/93 H 98 Room Air 07/31/23 08:43 07/31/23 08:51 07/31/23 08:43 07/31/23 08:51 07/31/23 08:43 07/31/23 08:43 Oxygen Delivery Method Room Air Weight: 95.4 kg Body Mass Index (BMI) 28.5 Intake & Output: Intake and Output for Last 24 Hours 07/29/23 07/30/23 07/31/23 23:59 23:59 23:59 Intake Total 720 / 720 300 / 300 400 / 400 Output Total 1225 / 1225 1625 / 1625 675 / 675 Balance -505 / -505 -1325 / -1325 -275 / -275 Lab / Micro Data 07/31/23 06:51 07/30/23 06:10 Labs: Laboratory Results - last 24 hr 07/31/23 06:51: Hgb 11.8 L, Hct 38.1 L Micro: Microbiology 07/26/23 00:47 Mucosa - Nose Respiratory Panel (PCR) - Final 07/25/23 23:47 Urine Catheter - Catheter Legionella Antigen - Final 07/25/23 23:47 Urine Catheter - Catheter Streptococcus pneumoniae Antigen (M - Final Physical Exam Narrative alert and no apparent distress Constitutional Narrative: Patient has evidence of cognitive impairment which is chronic, he is able to answer simple questions and carry on conversations however General Appearance: cooperative, well kempt and well developed Orientation / Consciousness: awake, oriented to person and oriented to place HEENT normocephalic, head/scalp atraumatic and moist oral mucous membranes Eyes PERRL, EOMs intact bilaterally and conjunctivae normal Neck supple, no JVD, thyroid normal and no carotid bruits General: trachea midline Resp normal respiratory effort, no retractions, no use of accessory muscles and clear to auscultation bilaterally Auscultation: Negative for rales, rhonchi or wheezes Cardio regular rate, regular rhythm, S1 normal heart sound, S2 normal heart sound, no murmurs, no rub and no gallops GI normal to inspection, nondistended, normoactive bowel sounds, soft to palpation, non-tender and non-distended Extremity no clubbing, cyanosis or edema Skin no rashes or lesions noted General Skin Exam: no breakdown Neuro oriented x3, CN's II-XII intact bilaterally, moves all extremities, no focal motor deficits and no sensory deficits noted Sensorium / Orientation: awake and alert Speech: speech normal Psych Psych Narrative: Patient has evidence of cognitive impairment/MRDD, he is pleasant and answers simple questions appropriately Assessment & Plan Assessment/Plan (1) DVT (deep venous thrombosis): PLAN: Plan 1. DVT of the right leg-patient remains on Xarelto at this time, hematuria will be monitored #2 hematuria-probably secondary to traumatic Ga insertion versus bladder irritation from Ga-this will be monitored, if it increases patient may have to be placed on heparin and or transfer to facility where he can have a IVC filter inserted. We do not have the capability this weekend to insert an IVC filter. Hemoglobin will be repeated tomorrow. #3 neurogenic bladder-patient's Ga will remain in place at this time #4 MRDD/cognitive [id number]-hklclhh-moefinmoneh care, management, recovery, and prognosis #5 acute debility-plan is for the patient to go to a [place] [facility] facility at the time of discharge from the hospital here, we are awaiting approval Total clinical time spent by myself addressing the patient's medical issues, reviewing all of his data, and collaborating with patient's care team: 35 minutes Charges/Coding Visit Charges Inpatient E&M: 39373 Subs Hosp L2
[2023-07-31] MEDS: Rivaroxaban 20 MG Tablet PO (17:19)
[2023-07-31] MEDS: Atorvastatin Calcium 40 MG Tablet PO (21:19)
[2023-07-31] MEDS: Mirtazapine 30 MG Tablet PO (21:20)
[2023-08-01] VITALS (8 sets, daily range): BP systolic 115–135; BP diastolic 69–77; PULSE 66–79; RESP 16–18; TEMP 36.4–36.8; O2SAT 94–99; BMI 28.4
[2023-08-01 06:29] LABS: Hemoglobin 11.3 g/dL (13.0-16.5)
[2023-08-01] MEDS: Budesonide Respules 0.5 MG/2 ML AMPUL.NEB. INHALATION (07:49)
[2023-08-01] MEDS: Mycophenolate Mofetil 250 MG Capsule 500 MG PO ×2 (11:14→21:03)
[2023-08-01] MEDS: Lactulose 20 GM/30 ML UDC 30 GM PO ×4 (11:14→21:02)
[2023-08-01] MEDS: Aspirin 81 MG TAB.CHEW PO (11:15)
[2023-08-01] MEDS: rifAXIMin 550 MG Tablet PO ×2 (11:15→21:03)
[2023-08-01] MEDS: Tacrolimus 0.5 MG Capsule PO ×2 (11:16→21:03)
[2023-08-01] MEDS: Pantoprazole Sodium 40 MG Tablet PO ×2 (11:16→21:03)
[2023-08-01] MEDS: Metoprolol Tartrate 25 MG Tablet PO ×2 (11:16→21:04)
[2023-08-01] MEDS: dilTIAZem CD 120 MG Capsule PO (11:17)
--- NOTE | 2023-08-01 12:16 | PN.HOSP_ITS ---
Reason for Visit Reason for Visit: Diagnoses Acute embolism and thrombosis of unspecified deep veins of unspecified lower ex tremity (07/25/23) Chest pain, unspecified (07/25/23) Subjective Subjective Patient was seen and examined today, he continues to have hematuria but his hemoglobin is essentially unchanged. I talked with vascular surgery today by phone, he may need implantation of a IVC filter, vascular surgery recommended keeping him on anticoagulation for now and they would see him tomorrow in consultation. Objective Data Objective Data Vital Signs: Vital Signs Temp Pulse Resp BP Pulse Ox O2 Del Method 98.2 F 77 18 119/71 97 Room Air 08/01/23 09:15 08/01/23 11:16 08/01/23 09:15 08/01/23 09:15 08/01/23 09:15 08/01/23 09:15 Oxygen Delivery Method Room Air Weight: 95.2 kg Body Mass Index (BMI) 28.4 Intake & Output: Intake and Output for Last 24 Hours 07/30/23 07/31/23 08/01/23 23:59 23:59 23:59 Intake Total 300 / 300 400 / 550 390 / 390 Output Total 1625 / 1625 1150 / 1450 1225 / 1225 Balance -1325 / -1325 -750 / -900 -835 / -835 Lab / Micro Data 08/01/23 05:55 07/30/23 06:10 Labs: Laboratory Results - last 24 hr 08/01/23 05:55: Hgb 11.3 L, Hct 37.0 L Micro: Microbiology 07/26/23 00:47 Mucosa - Nose Respiratory Panel (PCR) - Final 07/25/23 23:47 Urine Catheter - Catheter Legionella Antigen - Final 07/25/23 23:47 Urine Catheter - Catheter Streptococcus pneumoniae Antigen (M - Final Physical Exam Narrative alert and no apparent distress Constitutional Narrative: Patient has evidence of cognitive impairment which is chronic, he is able to answer simple questions and carry on conversations however General Appearance: cooperative, well kempt and well developed Orientation / Consciousness: awake, oriented to person and oriented to place HEENT normocephalic, head/scalp atraumatic and moist oral mucous membranes Eyes PERRL, EOMs intact bilaterally and conjunctivae normal Neck supple, no JVD, thyroid normal and no carotid bruits General: trachea midline Resp normal respiratory effort, no retractions, no use of accessory muscles and clear to auscultation bilaterally Auscultation: Negative for rales, rhonchi or wheezes Cardio regular rate, regular rhythm, S1 normal heart sound, S2 normal heart sound, no murmurs, no rub and no gallops GI normal to inspection, nondistended, normoactive bowel sounds, soft to palpation, non-tender and non-distended Extremity no clubbing, cyanosis or edema Skin no rashes or lesions noted General Skin Exam: no breakdown Neuro oriented x3, CN's II-XII intact bilaterally, moves all extremities, no focal motor deficits and no sensory deficits noted Sensorium / Orientation: awake and alert Speech: speech normal Psych Psych Narrative: Patient has evidence of cognitive impairment/MRDD, he is pleasant and answers simple questions appropriately Assessment & Plan Assessment/Plan (1) DVT (deep venous thrombosis): PLAN: Plan 1. DVT of the right leg-patient remains on Xarelto at this time, hematuria will be monitored #2 hematuria-probably secondary to traumatic Ga insertion versus bladder irritation from Ga-this will be monitored, vascular surgery has agreed to see the patient tomorrow, they recommended keeping the patient on Xarelto. #3 neurogenic bladder-patient's Ga will remain in place at this time #4 MRDD/cognitive rhwhuoahso-lrtygzj-tulpqvywhrx care, management, recovery, and prognosis #5 acute debility-plan is for the patient to go to a long-term facility at the time of discharge from the hospital here, we are awaiting approval Total clinical time spent by myself addressing the patient's medical issues, reviewing all of his data, and collaborating with patient's care team: 35 minutes Charges/Coding Visit Charges Inpatient E&M: 94370 Subs Hosp L2
[2023-08-01] MEDS: Menthol/Lanolin/Calamine/Znox 113 GM Tube 1 APPLIC TOPICAL ×2 (13:44→21:04)
[2023-08-01] MEDS: Rivaroxaban 20 MG Tablet PO (17:59)
[2023-08-01] MEDS: Atorvastatin Calcium 40 MG Tablet PO (21:03)
[2023-08-01] MEDS: Mirtazapine 30 MG Tablet PO (21:03)
[2023-08-02] VITALS (8 sets, daily range): BP systolic 126–137; BP diastolic 69–80; PULSE 76–79; RESP 16–18; TEMP 36.4–36.6; O2SAT 96–100; BMI 28.9
[2023-08-02 07:11] LABS: Hematocrit 36.8 % (40-54); Hemoglobin 11.2 g/dL (13.0-16.5)
[2023-08-02] MEDS: Budesonide Respules 0.5 MG/2 ML AMPUL.NEB. INHALATION ×2 (07:34→19:41)
[2023-08-02 07:38] LABS: Anion Gap 6 (5-15); BUN 26 mg/dL (7-18); BUN/Creat Ratio 14.4 RATIO (10-20); Calcium,Total 8.1 mg/dL (8.5-10.1); Chloride 117 mmol/L (98-107); EST Glomerular Filtration Rate 42 mL/min (>60); Est Glom Filt Rate - Afr Amer 50 mL/min (>60); Estimated Creatinine Clearance 55.25 ml/min; Glucose 102 mg/dL (74-106); Sodium Level 142 mmol/L (136-145)
[2023-08-02] MEDS: Lactulose 20 GM/30 ML UDC 30 GM PO ×4 (09:17→21:52)
[2023-08-02] MEDS: dilTIAZem CD 120 MG Capsule PO (09:17)
[2023-08-02] MEDS: Metoprolol Tartrate 25 MG Tablet PO ×2 (09:18→21:55)
[2023-08-02] MEDS: Pantoprazole Sodium 40 MG Tablet PO ×2 (09:18→21:54)
[2023-08-02] MEDS: Tacrolimus 0.5 MG Capsule PO ×2 (09:18→21:53)
[2023-08-02] MEDS: rifAXIMin 550 MG Tablet PO ×2 (09:18→21:54)
[2023-08-02] MEDS: Mycophenolate Mofetil 250 MG Capsule 500 MG PO ×2 (09:18→21:53)
[2023-08-02] MEDS: Aspirin 81 MG TAB.CHEW PO (09:18)
--- NOTE | 2023-08-02 12:37 | PCM.PN.HOSP ---
Reason for Visit Reason for Visit: Diagnoses Acute embolism and thrombosis of unspecified deep veins of unspecified lower extremity (07/25/23) Chest pain, unspecified (07/25/23) Subjective Subjective No acute events overnight. Patient seen at bedside's morning. Sitting appropriately in bedside chair, in no acute distress. Patient reports mild discomfort with speaking this morning. Otherwise denies any acute pain or discomfort. Continues to have mild hematuria noted in his Ga bag. No other acute concerns this morning. Objective Data Objective Data Vital Signs: Vital Signs Temp Pulse Resp BP Pulse Ox O2 Del Method 97.8 F 79 18 134/70 H 96 Room Air 08/02/23 09:00 08/02/23 09:18 08/02/23 09:00 08/02/23 09:18 08/02/23 09:00 08/02/23 09:00 Oxygen Delivery Method Room Air Weight: 96.7 kg Body Mass Index (BMI) 28.9 Intake & Output: Intake and Output for Last 24 Hours 07/31/23 08/01/23 08/02/23 23:59 23:59 23:59 Intake Total 400 / 550 870 / 870 Output Total 1150 / 1450 1625 / 1625 500 / 500 Balance -750 / -900 -755 / -755 -500 / -500 Lab / Micro Data 08/02/23 06:40 08/02/23 06:40 Labs: Laboratory Results - last 24 hr 08/02/23 06:40: Hgb 11.2 L, Hct 36.8 L, Sodium 142, Potassium 4.0, Chloride 117 H, Carbon Dioxide 19.0 L, Anion Gap 6, BUN 26 H, Creatinine 1.80 H, Estim Creat Clear Calc 55.25, Est GFR (MDRD) Af Amer 50 L, Est GFR (MDRD) Non-Af 42 L, BUN/Creatinine Ratio 14.4, Glucose 102, Calcium 8.1 L Micro: Microbiology 07/26/23 00:47 Mucosa - Nose Respiratory Panel (PCR) - Final 07/25/23 23:47 Urine Catheter - Catheter Legionella Antigen - Final 07/25/23 23:47 Urine Catheter - Catheter Streptococcus pneumoniae Antigen (M - Final Physical Exam Const alert and no apparent distress Constitutional Narrative: Middle-age male, obese, mild MRDD, otherwise sitting up comfortably in bed, mildly strained voice but answering questions appropriately, no acute distress. General Appearance: cooperative and comfortable HEENT normocephalic, head/scalp atraumatic, hearing grossly normal bilaterally and nasal mucous membranes and turbinates normal Eyes PERRL, EOMs intact bilaterally and conjunctivae normal Neck full ROM Chest inspection of chest normal Resp normal respiratory effort and no use of accessory muscles Resp Narrative: Good breath sounds bilaterally throughout, improved from admission. Cardio regular rate, regular rhythm, no murmurs and peripheral pulses 2+ throughout GI normal to inspection, nondistended, normoactive bowel sounds, soft to palpation, non-tender and non-distended Back/Spine normal ROM Extremity full ROM Extremity Narrative: Trace lower extremity edema noted, stable. Skin no rashes or lesions noted Neuro moves all extremities and no focal motor deficits Speech: speech normal Psych mental status grossly normal Assessment & Plan Assessment/Plan (1) DVT (deep venous thrombosis): QUALIFIERS: DVT location: lower extremity Affected thrombotic vein of extremity: femoral Laterality: right Chronicity: acute Qualified Code(s): I82.411 - Acute embolism and thrombosis of right femoral vein (2) Hematuria: PLAN: Plan Patient is a 58-year-old male who presented to [facility] ED on 07/25/2023 with worsening chest pain. 1. Acute DVT and concern for acute PE, history of DVT/PE ? On chart review, patient had DVT/PE back in 2017. Appears that he completed a 3-month course of Xarelto and tolerated this without issue. Patient was then diagnosed with new onset A-fib in December 2022, was started on Eliquis for this. He unfortunately had a GI bleed with anemia requiring blood transfusion on Eliquis and the Eliquis was discontinued. Has not had any further bleeding episodes since then. ? Presented on this admission with symptoms concerning for DVT/PE. CTA chest on admit showed bilateral infiltrates of unclear etiology, unfortunately contrast timing was poor and it was a nondiagnostic study but PE cannot be ruled out. Lower extremity duplex ultrasound positive for right common femoral vein and right posterior tibial pain DVT. TTE showed normal EF, mildly elevated right ventricular systolic pressure, no strain noted. ? Started on therapeutic Lovenox on admission with symptomatic improvement. Switched to Xarelto, no loading dose as patient was stable on room air and has history of GI bleed as noted below. ? Vascular surgery evaluated on 08/01, suspect hematuria is likely secondary to traumatic Ga placement, noted that patient's hemoglobin has remained stable and has fairly minimal hematuria. Recommended no IVC filter placement and okay to continue Xarelto. ? Continue Xarelto. Continue to monitor CBC daily. 2. History of neurogenic bladder requiring intermittent straight cath ? Patient straight cathed himself at his assisted living facility, has done this for many years. Nursing staff noted that patient is a difficult straight cath so Ga was placed on admission. ? Patient has complex history including recurrent UTIs, and it appears that he has difficulty straight cathing himself on a regular basis. ? Continue Ga catheter now. Will plan to continue Ga on discharge as well, with outpatient follow-up with urology postdischarge. 3. Mild debility, suspected need for extended hospital stay ? PT/OT/case management following. Planning for SNF on discharge, pre-CERT pending. Will likely take a few more days for acceptance as PASRR had to be completed for patient due to his baseline disability. 4. Hematuria ? Noted for the past several days. Hemoglobin has remained stable and patient has been hemodynamically stable. Presumed secondary to traumatic Ga insertion. ? Vascular surgery evaluated as above for need for possible IVC filter placement; agreed that traumatic Ga was reason for mild hematuria and recommended continuing Xarelto with no need for IVC filter placement. ? Continue to monitor urine output and CBC daily. 5. History of GI bleed ? Patient hospitalized in December 2022 for NSTEMI type II suspected to be secondary to PE versus A-fib with RVR. Started on Eliquis at that time, was discharged from that hospitalization on 01/01/2023. Presented again to the hospital on 01/15 with worsening abdominal pain and was found to have decreasing hemoglobin. Hemoglobin decreased down to 6.8 and patient required 2 units packed red blood cells at that time. Was suspected the patient a lower GI bleed and Eliquis was discontinued. ? Hemoglobin has been stable around 10-11 during hospitalization. Continue home PPI twice daily. Continue to monitor daily CBC. 6. Concern for community-acquired pneumonia, resolved ? Chest imaging findings on admit as noted above. Clinical symptoms not consistent with pneumonia. Infectious workup negative. Was started on azithromycin and ceftriaxone on admission for concern for CAP, discontinued on 07/25. Stable. 7. Mild MRDD ? Per history. Lives in assisted living facility. At baseline mentation. Chronic medical conditions: ? Obesity: BMI 30 on admit. Complicates hospital course, care and prognosis. ? History of renal transplant for previous ESRD, now CKD stage IIIb: Follows with outpatient neurology. Creatinine 2.08 on admit, baseline creatinine 1.5-1.9, improved to baseline on hospital day 2. Continue home tacrolimus. Given low suspicion for pneumonia, okay to continue home CellCept as well. ? Paroxysmal A-fib: Not chronically anticoagulated secondary to GI bleed history. Continue home aspirin, metoprolol, diltiazem. ? Nonobstructive CAD/hypertension/hyperlipidemia: Continue home aspirin, statin, metoprolol, diltiazem. ? Anxiety and depression: Continue home mirtazapine. ? Chronic liver disease of unclear etiology: Follows with outpatient gastroenterology. Continue home lactulose and rifaximin. DVT prophylaxis: Xarelto CODE STATUS: Full code, verified Expected disposition: SNF, medically ready on 07/27, awaiting placement Total clinical time spent by myself addressing the patient's medical issues, reviewing all the data, and collaborating with patient's care team: 35 minutes. Charges/Coding Visit Charges Inpatient E&M: 35784 Subs Hosp L2
--- NOTE | 2023-08-02 12:53 | EX.PCM.CON.S ---
Assessment & Plan Assessment/Plan (1) DVT (deep venous thrombosis): QUALIFIERS: DVT location: lower extremity Affected thrombotic vein of extremity: femoral Chronicity: acute Laterality: right Qualified Code(s): I82.411 - Acute embolism and thrombosis of right femoral vein PLAN: -hematuria resolving; harman tubing now with only trace blood -recommend continued anticoagulation, no filter at this time HPI Consult Data Date of Consult: 08/02/23 HPI Narrative HPI Narrative: ROOSEVELT GARCIA, is a 58 M who presents with chest discomfort, SOB. CTA was non-diagnostic due to contrast timing, venous duplex revealed common femoral DVT. Was initiated on NOAC and subsequently had hematuria. He performs his own straight catheterizations chronically and when he first arrived there was difficulty performing this which potentially caused some trauma. His urine has been slowly clearing; initially with schedule harman flushes now just PRN. [facility] Medical History (Updated 08/02/23 @ 12:[address] Ambrosio Tran MD) Anemia in chronic illness Anxiety and depression Bladder dysfunction Bronchitis Chronic kidney disease, stage 3b CKD (chronic kidney disease), stage III Congenital nystagmus DVT (deep venous thrombosis) History of DVT (deep vein thrombosis) History of encephalopathy History of pulmonary embolism HTN (hypertension) Immunosuppressed status Mild intellectual disability Myocardial infarct Neurogenic bladder disorder Neutropenia Pancytopenia Pulmonary embolism Severe protein-calorie malnutrition Urinary retention Vocal cord dysfunction Home Medications mycophenolate mofetil 500 mg tablet 500 mg PO BID TRANSPLANT ANTI-REJECTION 07/14/16 [History Last Taken 01/26/23] multivitamin 1 tab PO DAILY SUPPLEMENT 02/13/22 [History Last Taken 01/26/23] lactulose 20 gram/30 mL oral solution 45 ml PO 4X/DAY hepatic failure 06/13/22 [History Last Taken 01/26/23] rifaximin 550 mg tablet (Xifaxan) 550 mg PO BID ANTIBIOTIC 07/16/22 [History Last Taken 01/26/23] mirtazapine 30 mg tablet 30 mg PO QHS DEPRESSION 11/01/22 [History Last Taken 01/25/23] diltiazem HCl 120 mg tablet,extended release 24 hr (Cardizem LA) 120 mg PO DAILY BLOOD PRESSURE #30 tabs 01/01/23 [Rx Last Taken 01/26/23] metoprolol tartrate 25 mg tablet 25 mg PO BID BLOOD PRESSURE #0 tabs 01/01/23 [Rx Last Taken 01/26/23] tacrolimus 0.5 mg capsule, immediate-release 0.5 mg PO BID TRANSPLANT ANTI-REJECTION 01/15/23 [History Last Taken 01/26/23] atorvastatin 40 mg tablet 40 mg PO QHS 07/25/23 [History Last Taken Unknown] pantoprazole 40 mg tablet,delayed release 40 mg PO DAILY 07/25/23 [History Last Taken Unknown] enoxaparin 100 mg/mL subcutaneous syringe 100 mg subcut BID #0 mL 07/27/23 [Rx Last Taken Unknown] Allergy/AdvReac Type Severity Reaction Status Date / Time red dye Allergy PT UNSURE Verified 07/25/23 19:15 OF REACTION Family History Mother Hypertension Father Diabetes Surgical History Kidney transplant recipient Renal transplant recipient S/P arteriovenous (AV) fistula creation Social History household members: none housing: shelter Smoking Status: Never smoker second hand exposure: No alcohol intake: never substance use type: does not use caffeine: No ROS Review of Systems ROS Unobtainable: due to mental condition Physical Exam Const alert, oriented x3, no apparent distress and healthy appearing General Appearance: cooperative; Negative for combative or lethargic Orientation / Consciousness: awake Exam Limitations: no limitations HEENT Head and Scalp: normocephalic and atraumatic Eyes EOMs intact bilaterally General Eye: normal appearance of both eyes Neck full ROM, no lymphadenopathy, thyroid normal and No no carotid bruits General: trachea midline; Negative for lymphadenopathy or tenderness Thyroid: thyroid normal Lymph Lymphatic: Negative for no lymphadenopathy noted Resp normal respiratory effort and no use of accessory muscles Effort and Inspection: Negative for labored, stridor or audible wheezes Cardio regular rate and regular rhythm Back/Spine Cervical Spine: cervical ROM normal Extremity full ROM, normal capillary refill and no clubbing, cyanosis or edema Skin no rashes or lesions noted and no wounds Neuro oriented x3, CN's II-XII intact bilaterally, no focal motor deficits and no sensory deficits noted Psych thought process normal, cooperative, affect normal, speech normal and activity/motor behavior normal Lab / Micro Data 08/02/23 06:40 08/02/23 06:40 Labs: Laboratory Results - last 24 hr 08/02/23 06:40: Hgb 11.2 L, Hct 36.8 L, Sodium 142, Potassium 4.0, Chloride 117 H, Carbon Dioxide 19.0 L, Anion Gap 6, BUN 26 H, Creatinine 1.80 H, Estim Creat Clear Calc 55.25, Est GFR (MDRD) Af Amer 50 L, Est GFR (MDRD) Non-Af 42 L, BUN/Creatinine Ratio 14.4, Glucose 102, Calcium 8.1 L Charges/Coding Visit Charges Inpatient E&M: 74837 Init Hosp L2
--- NOTE | 2023-08-02 13:47 | CASEMGMT ---
Social Work Checked the Virtual DBS system, and patient's level II PASRR screen is still pending in the system. This is needed to start insurance precert with [facility] Medicaid. Called STUART Galaviz at [facility] (assisted living and [facility]). [facility] confirms there is a bed at the for patient, and to need the PASRR in order to start the precert. Per [facility], starting today, all referrals will be managed through a centralized intake. Uploaded SNF referral for [facility] into [facility], and indicated in referral that still waiting on the level II PASRR. No patient choice list created in the [facility] system as this choice was previously determined. Patient is from [facility] assisted living, the NF placement will be short term, so choice by patient/family was for patient to stay within the same intermediate project manager care organization/building. Plan: Short term NF, pending receipt of Level II PASRR screen and then insurance precert. -AI Peck
[2023-08-02] MEDS: Menthol/Lanolin/Calamine/Znox 113 GM Tube 1 APPLIC TOPICAL ×2 (14:56→21:56)
[2023-08-02] MEDS: Rivaroxaban 20 MG Tablet PO (16:59)
[2023-08-02] MEDS: Albuterol 2.5 MG/3 ML VIAL.NEB. INHALATION (19:41)
[2023-08-02] MEDS: Atorvastatin Calcium 40 MG Tablet PO (21:54)
[2023-08-02] MEDS: Mirtazapine 30 MG Tablet PO (21:54)
[2023-08-03] VITALS (7 sets, daily range): BP systolic 126–137; BP diastolic 67–85; PULSE 73–79; RESP 16–20; TEMP 36.4–37.1; O2SAT 96–100; BMI 29.0
[2023-08-03 05:57] LABS: Hematocrit 35.9 % (40-54); Hemoglobin 10.8 g/dL (13.0-16.5); Mean Corp Hgb Conc 30.1 g/dL (32-36); Mean Corpuscular Hgb 23.3 pg (27.0-32.0); Mean Corpuscular Volume 77.5 fL (80-94); Mean Platelet Vol. 11.4 fl (6.2-12.0); Platelet Count 189 K/mm3 (150-450); RBC Distribution Width CV 18.9 % (11.6-14.6); RBC Distribution Width SD 52.1 fl (35.1-43.9); Red Blood Count 4.63 M/mm3 (4.6-6.2); White Blood Count 4.9 K/mm3 (4.4-11.0)
[2023-08-03 06:13] LABS: Anion Gap 6 (5-15); BUN 27 mg/dL (7-18); BUN/Creat Ratio 15.2 RATIO (10-20); Calcium,Total 8.1 mg/dL (8.5-10.1); Chloride 117 mmol/L (98-107); Creatinine, Serum 1.78 mg/dL (0.70-1.30); EST Glomerular Filtration Rate 42 mL/min (>60); Est Glom Filt Rate - Afr Amer 51 mL/min (>60); Estimated Creatinine Clearance 55.95 ml/min; Glucose 100 mg/dL (74-106); Potassium 4.2 mmol/L (3.5-5.1); Sodium Level 143 mmol/L (136-145)
[2023-08-03] MEDS: Budesonide Respules 0.5 MG/2 ML AMPUL.NEB. INHALATION (07:32)
[2023-08-03] MEDS: Aspirin 81 MG TAB.CHEW PO (08:27)
[2023-08-03] MEDS: dilTIAZem CD 120 MG Capsule PO (08:27)
[2023-08-03] MEDS: Lactulose 20 GM/30 ML UDC 30 GM PO ×4 (08:27→21:27)
[2023-08-03] MEDS: Mycophenolate Mofetil 250 MG Capsule 500 MG PO ×2 (08:27→21:29)
[2023-08-03] MEDS: Tacrolimus 0.5 MG Capsule PO ×2 (08:28→21:29)
[2023-08-03] MEDS: Metoprolol Tartrate 25 MG Tablet PO ×2 (08:28→21:28)
[2023-08-03] MEDS: Pantoprazole Sodium 40 MG Tablet PO ×2 (08:28→21:29)
[2023-08-03] MEDS: rifAXIMin 550 MG Tablet PO ×2 (08:29→21:27)
--- NOTE | 2023-08-03 08:52 | CASEMGMT ---
Social Work SW checked the HENS system to see if the further review has been completed, it is still listed as submitted. SW called the PAS/RR department to check on the status of the PAS/RR review and results, message left. STUART will continue to follow. MARTHA Seymour
--- NOTE | 2023-08-03 09:58 | CASEMGMT ---
Addendum entered by Roshni Pat 08/03/23 10:47: Social Work Ethan Urban from here to meet w/pt. He met w/pt, pt was not able to give a lot of history, he will call pt's sister and review the medical chart information. As per Ethan, he will finish his assessment today or tomorrow and then send it to the state for review. SW called pt's sister to let her know, and also asked for clarification on POA. She states brother Alejo Pinzon is POA and sister Evaristo is the alternate. SW explained will ask [facility] for the documents, if they do not have them SW will call her back to ask her to bring them in. SW sent a message to [facility] updating them on the DD assessment, and asked them to fax the most recent POA form. MARTHA Seymour Original Note: Social Work SW received a call from STUART Hernández with the [employer], he is going to come see pt today to complete the further review process. He states will be here by 12pm. SW spoke w/pt and let him know. STUART also called pt's sister Evaristo Gallagher, who is listed as his alternate POA, to let her know as well, she is listed as pt's main contact at this time. STUART will continue to follow. MARTHA Seymour
--- NOTE | 2023-08-03 11:41 | CASEMGMT ---
Social Work Power of stem cutter faxed over from [facility], Alejo Pinzon is POA and Kate Gallagher is the alternate. The document does have a healthcare provision as well. SW let pt's sister know she does not need to bring in the documents. MARTHA Seymour
--- NOTE | 2023-08-03 12:12 | PCM.PN.HOSP ---
Reason for Visit Reason for Visit: Diagnoses Acute embolism and thrombosis of unspecified deep veins of unspecified lower extremity (07/25/23) Acute embolism and thrombosis of right femoral vein (07/25/23) Chest pain, unspecified (07/25/23) Hematuria, unspecified (07/25/23) Subjective Subjective No acute events overnight. Patient seen at bedside this morning. Sitting up comfortably in bedside chair, conversing normally, no acute distress. Appears similar today to previous days. No other acute concerns. Objective Data Objective Data Vital Signs: Vital Signs Temp Pulse Resp BP Pulse Ox O2 Del Method 98.5 F 73 16 137/85 H 99 Room Air 08/03/23 08:20 08/03/23 08:28 08/03/23 08:20 08/03/23 08:28 08/03/23 08:20 08/03/23 08:20 Oxygen Delivery Method Room Air Weight: 97 kg Body Mass Index (BMI) 29.0 Intake & Output: Intake and Output for Last 24 Hours 08/01/23 08/02/23 08/03/23 23:59 23:59 23:59 Intake Total 870 / 870 600 / 600 Output Total 1625 / 1625 1550 / 1550 450 / 450 Balance -755 / -755 -950 / -950 -450 / -450 Lab / Micro Data 08/03/23 05:35 08/03/23 05:35 Labs: Laboratory Results - last 24 hr 08/03/23 05:35: WBC 4.9, RBC 4.63, Hgb 10.8 L, Hct 35.9 L, MCV 77.5 L, MCH 23.3 L, MCHC 30.1 L, RDW Std Deviation 52.1 H, RDW Coeff of Anil 18.9 H, Plt Count 189, MPV 11.4, Sodium 143, Potassium 4.2, Chloride 117 H, Carbon Dioxide 20.0 L, Anion Gap 6, BUN 27 H, Creatinine 1.78 H, Estim Creat Clear Calc 55.95, Est GFR (MDRD) Af Amer 51 L, Est GFR (MDRD) Non-Af 42 L, BUN/Creatinine Ratio 15.2, Glucose 100, Calcium 8.1 L Micro: Microbiology 07/26/23 00:47 Mucosa - Nose Respiratory Panel (PCR) - Final 07/25/23 23:47 Urine Catheter - Catheter Legionella Antigen - Final 07/25/23 23:47 Urine Catheter - Catheter Streptococcus pneumoniae Antigen (M - Final Physical Exam Const alert and no apparent distress Constitutional Narrative: Middle-age male, obese, mild MRDD, otherwise sitting up comfortably in bed, mildly strained voice but answering questions appropriately, no acute distress. General Appearance: cooperative and comfortable HEENT normocephalic, head/scalp atraumatic, hearing grossly normal bilaterally and nasal mucous membranes and turbinates normal Eyes PERRL, EOMs intact bilaterally and conjunctivae normal Neck full ROM Chest inspection of chest normal Resp normal respiratory effort and no use of accessory muscles Resp Narrative: Good breath sounds bilaterally throughout, improved from admission. Cardio regular rate, regular rhythm, no murmurs and peripheral pulses 2+ throughout GI normal to inspection, nondistended, normoactive bowel sounds, soft to palpation, non-tender and non-distended Back/Spine normal ROM Extremity full ROM Extremity Narrative: Trace lower extremity edema noted, stable. Skin no rashes or lesions noted Neuro moves all extremities and no focal motor deficits Speech: speech normal Psych mental status grossly normal Assessment & Plan Assessment/Plan (1) DVT (deep venous thrombosis): QUALIFIERS: DVT location: lower extremity Affected thrombotic vein of extremity: femoral Laterality: right Chronicity: acute Qualified Code(s): I82.411 - Acute embolism and thrombosis of right femoral vein (2) Hematuria: PLAN: Plan Patient is a 58-year-old male who presented to [facility] ED on 07/25/2023 with worsening chest pain. 1. Acute DVT and concern for acute PE, history of DVT/PE On chart review, patient had DVT/PE back in 2018. Appears that he completed a 3-month course of Xarelto and tolerated this without issue. Patient was then diagnosed with new onset A-fib in December 2022, was started on Eliquis for this. He unfortunately had a GI bleed with anemia requiring blood transfusion on Eliquis and the Eliquis was discontinued. Has not had any further bleeding episodes since then. Presented on this admission with symptoms concerning for DVT/PE. CTA chest on admit showed bilateral infiltrates of unclear etiology, unfortunately contrast timing was poor and it was a nondiagnostic study but PE cannot be ruled out. Lower extremity duplex ultrasound positive for right common femoral vein and right posterior tibial pain DVT. TTE showed normal EF, mildly elevated right ventricular systolic pressure, no strain noted. Started on therapeutic Lovenox on admission with symptomatic improvement. Switched to Xarelto, no loading dose as patient was stable on room air and has history of GI bleed as noted below. Vascular surgery evaluated on 08/01, suspect hematuria is likely secondary to traumatic Ga placement, noted that patient's hemoglobin has remained stable and has fairly minimal hematuria. Recommended no IVC filter placement and okay to continue Xarelto. ? Continue Xarelto. Continue to monitor CBC daily. 2. History of neurogenic bladder requiring intermittent straight cath Patient straight cathed himself at his assisted living facility, has done this for many years. Nursing staff noted that patient is a difficult straight cath so Ga was placed on admission. Patient has complex history including recurrent UTIs, and it appears that he has difficulty straight cathing himself on a regular basis. ? Continue Ga catheter.. Will plan to continue Ga on discharge as well, with outpatient follow-up with urology postdischarge. 3. Mild debility, suspected need for extended hospital stay ? PT/OT/case management following. Planning for SNF on discharge, pre-CERT pending. Will likely take a few more days for acceptance as PASRR had to be completed for patient due to his baseline disability. 4. Hematuria Noted for the past several days. Hemoglobin has remained stable and patient has been hemodynamically stable. Presumed secondary to traumatic Ga insertion. Vascular surgery evaluated as above for need for possible IVC filter placement; agreed that traumatic Ga was reason for mild hematuria and recommended continuing Xarelto with no need for IVC filter placement. ? Continue to monitor urine output and CBC daily. 5. History of GI bleed Patient hospitalized in December 2022 for NSTEMI type II suspected to be secondary to PE versus A-fib with RVR. Started on Eliquis at that time, was discharged from that hospitalization on 01/01/2023. Presented again to the hospital on 01/15 with worsening abdominal pain and was found to have decreasing hemoglobin. Hemoglobin decreased down to 6.8 and patient required 2 units packed red blood cells at that time. Was suspected the patient a lower GI bleed and Eliquis was discontinued. ? Hemoglobin has been stable around 10-11 during hospitalization. Continue home PPI twice daily. Continue to monitor daily CBC. 6. Concern for community-acquired pneumonia, resolved ? Chest imaging findings on admit as noted above. Clinical symptoms not consistent with pneumonia. Infectious workup negative. Was started on azithromycin and ceftriaxone on admission for concern for CAP, discontinued on 07/25. Stable. 7. Mild MRDD ? Per history. Lives in assisted living facility. At baseline mentation. Chronic medical conditions: ? Obesity: BMI 30 on admit. Complicates hospital course, care and prognosis. ? History of renal transplant for previous ESRD, now CKD stage IIIb: Follows with outpatient neurology. Creatinine 2.08 on admit, baseline creatinine 1.5-1.9, improved to baseline on hospital day 2. Continue home tacrolimus. Given low suspicion for pneumonia, okay to continue home CellCept as well. ? Paroxysmal A-fib: Not chronically anticoagulated secondary to GI bleed history. Continue home aspirin, metoprolol, diltiazem. ? Nonobstructive CAD/hypertension/hyperlipidemia: Continue home aspirin, statin, metoprolol, diltiazem. ? Anxiety and depression: Continue home mirtazapine. ? Chronic liver disease of unclear etiology: Follows with outpatient gastroenterology. Continue home lactulose and rifaximin. DVT prophylaxis: Xarelto CODE STATUS: Full code, verified Expected disposition: SNF, medically ready on 07/27, awaiting placement Total clinical time spent by myself addressing the patient's medical issues, reviewing all the data, and collaborating with patient's care team: 25 minutes. Charges/Coding Visit Charges Inpatient E&M: 91221 [facility] Hosp L1
[2023-08-03] MEDS: Rivaroxaban 20 MG Tablet PO (16:50)
[2023-08-03] MEDS: Atorvastatin Calcium 40 MG Tablet PO (21:28)
[2023-08-03] MEDS: Mirtazapine 30 MG Tablet PO (21:31)
[2023-08-03] MEDS: Menthol/Lanolin/Calamine/Znox 113 GM Tube 1 APPLIC TOPICAL (21:31)
[2023-08-04] VITALS (7 sets, daily range): BP systolic 114–154; BP diastolic 64–94; PULSE 69–80; RESP 16–18; TEMP 36.4–36.7; O2SAT 94–100; BMI 29.0
[2023-08-04] MEDS: Lactulose 20 GM/30 ML UDC 30 GM PO ×4 (07:52→21:29)
[2023-08-04] MEDS: Metoprolol Tartrate 25 MG Tablet PO ×2 (07:52→21:29)
[2023-08-04] MEDS: Mycophenolate Mofetil 250 MG Capsule 500 MG PO ×2 (07:53→21:29)
[2023-08-04] MEDS: Pantoprazole Sodium 40 MG Tablet PO ×2 (07:53→21:30)
[2023-08-04] MEDS: Tacrolimus 0.5 MG Capsule PO ×2 (07:53→21:30)
[2023-08-04] MEDS: Aspirin 81 MG TAB.CHEW PO (07:53)
[2023-08-04] MEDS: rifAXIMin 550 MG Tablet PO ×2 (07:53→21:29)
[2023-08-04] MEDS: dilTIAZem CD 120 MG Capsule PO (07:53)
--- NOTE | 2023-08-04 12:24 | PCM.PN.HOSP ---
Reason for Visit Reason for Visit: Diagnoses Acute embolism and thrombosis of unspecified deep veins of unspecified lower extremity (07/25/23) Acute embolism and thrombosis of right femoral vein (07/25/23) Chest pain, unspecified (07/25/23) Hematuria, unspecified (07/25/23) Subjective Subjective No acute events overnight. Patient seen at bedside this morning. Sitting up comfortably in bed, conversing normally, no acute distress. Appears similar to previous days. No other acute concerns at this time. Objective Data Objective Data Vital Signs: Vital Signs Temp Pulse Resp BP Pulse Ox O2 Del Method 97.6 F L 80 18 154/94 H 100 Room Air 08/04/23 07:47 08/04/23 07:52 08/04/23 07:47 08/04/23 07:47 08/04/23 07:47 08/04/23 07:47 Oxygen Delivery Method Room Air Weight: 97 kg Body Mass Index (BMI) 29.0 Intake & Output: Intake and Output for Last 24 Hours 08/02/23 08/03/23 08/04/23 23:59 23:59 23:59 Intake Total 600 / 600 240 / 240 Output Total 1550 / 1550 1250 / 1250 1150 / 1150 Balance -950 / -950 -1010 / -1010 -1150 / -1150 Lab / Micro Data 08/03/23 05:35 08/03/23 05:35 Micro: Microbiology 07/26/23 00:47 Mucosa - Nose Respiratory Panel (PCR) - Final 07/25/23 23:47 Urine Catheter - Catheter Legionella Antigen - Final 07/25/23 23:47 Urine Catheter - Catheter Streptococcus pneumoniae Antigen (M - Final Physical Exam Const alert and no apparent distress Constitutional Narrative: Middle-age male, obese, mild MRDD, otherwise sitting up comfortably in bed, mildly strained voice but answering questions appropriately, no acute distress. General Appearance: cooperative and comfortable HEENT normocephalic, head/scalp atraumatic, hearing grossly normal bilaterally and nasal mucous membranes and turbinates normal Eyes PERRL, EOMs intact bilaterally and conjunctivae normal Neck full ROM Chest inspection of chest normal Resp normal respiratory effort and no use of accessory muscles Resp Narrative: Good breath sounds bilaterally throughout, improved from admission. Cardio regular rate, regular rhythm, no murmurs and peripheral pulses 2+ throughout GI normal to inspection, nondistended, normoactive bowel sounds, soft to palpation, non-tender and non-distended Back/Spine normal ROM Extremity full ROM Extremity Narrative: Trace lower extremity edema noted, stable. Skin no rashes or lesions noted Neuro moves all extremities and no focal motor deficits Speech: speech normal Psych mental status grossly normal Assessment & Plan Assessment/Plan (1) DVT (deep venous thrombosis): QUALIFIERS: DVT location: lower extremity Affected thrombotic vein of extremity: femoral Laterality: right Chronicity: acute Qualified Code(s): I82.411 - Acute embolism and thrombosis of right femoral vein (2) Hematuria: PLAN: Plan Patient is a 58-year-old male who presented to [facility] ED on 07/25/2023 with worsening chest pain. 1. Acute DVT and concern for acute PE, history of DVT/PE On chart review, patient had DVT/PE back in 2017. Appears that he completed a 3-month course of Xarelto and tolerated this without issue. Patient was then diagnosed with new onset A-fib in December 2022, was started on Eliquis for this. He unfortunately had a GI bleed with anemia requiring blood transfusion on Eliquis and the Eliquis was discontinued. Has not had any further bleeding episodes since then. Presented on this admission with symptoms concerning for DVT/PE. CTA chest on admit showed bilateral infiltrates of unclear etiology, unfortunately contrast timing was poor and it was a nondiagnostic study but PE cannot be ruled out. Lower extremity duplex ultrasound positive for right common femoral vein and right posterior tibial pain DVT. TTE showed normal EF, mildly elevated right ventricular systolic pressure, no strain noted. Started on therapeutic Lovenox on admission with symptomatic improvement. Switched to Xarelto, no loading dose as patient was stable on room air and has history of GI bleed as noted below. Vascular surgery evaluated on 08/01, suspect hematuria is likely secondary to traumatic Ga placement, noted that patient's hemoglobin has remained stable and has fairly minimal hematuria. Recommended no IVC filter placement and okay to continue Xarelto. ? Continue Xarelto. Continue to monitor CBC daily. 2. History of neurogenic bladder requiring intermittent straight cath Patient straight cathed himself at his assisted living facility, has done this for many years. Nursing staff noted that patient is a difficult straight cath so Ga was placed on admission. Patient has complex history including recurrent UTIs, and it appears that he has difficulty straight cathing himself on a regular basis. ? Continue Ga catheter.. Will plan to continue Ga on discharge as well, with outpatient follow-up with urology postdischarge. 3. Mild debility, suspected need for extended hospital stay ? PT/OT/case management following. Planning for SNF on discharge, pre-CERT pending. Will likely take a few more days for acceptance as PASRR had to be completed for patient due to his baseline disability. 4. Hematuria Noted for the past several days. Hemoglobin has remained stable and patient has been hemodynamically stable. Presumed secondary to traumatic Ga insertion. Vascular surgery evaluated as above for need for possible IVC filter placement; agreed that traumatic Ga was reason for mild hematuria and recommended continuing Xarelto with no need for IVC filter placement. ? Continue to monitor urine output and CBC daily. 5. History of GI bleed Patient hospitalized in December 2022 for NSTEMI type II suspected to be secondary to PE versus A-fib with RVR. Started on Eliquis at that time, was discharged from that hospitalization on 01/01/2023. Presented again to the hospital on 01/15 with worsening abdominal pain and was found to have decreasing hemoglobin. Hemoglobin decreased down to 6.8 and patient required 2 units packed red blood cells at that time. Was suspected the patient a lower GI bleed and Eliquis was discontinued. ? Hemoglobin has been stable around 10-11 during hospitalization. Continue home PPI twice daily. Continue to monitor daily CBC. 6. Concern for community-acquired pneumonia, resolved ? Chest imaging findings on admit as noted above. Clinical symptoms not consistent with pneumonia. Infectious workup negative. Was started on azithromycin and ceftriaxone on admission for concern for CAP, discontinued on 07/25. Stable. 7. Mild MRDD ? Per history. Lives in assisted living facility. At baseline mentation. Chronic medical conditions: ? Obesity: BMI 30 on admit. Complicates hospital course, care and prognosis. ? History of renal transplant for previous ESRD, now CKD stage IIIb: Follows with outpatient neurology. Creatinine 2.08 on admit, baseline creatinine 1.5-1.9, improved to baseline on hospital day 2. Continue home tacrolimus. Given low suspicion for pneumonia, okay to continue home CellCept as well. ? Paroxysmal A-fib: Not chronically anticoagulated secondary to GI bleed history. Continue home aspirin, metoprolol, diltiazem. ? Nonobstructive CAD/hypertension/hyperlipidemia: Continue home aspirin, statin, metoprolol, diltiazem. ? Anxiety and depression: Continue home mirtazapine. ? Chronic liver disease of unclear etiology: Follows with outpatient gastroenterology. Continue home lactulose and rifaximin. DVT prophylaxis: Xarelto CODE STATUS: Full code, verified Expected disposition: SNF, medically ready on 07/27, awaiting placement Total clinical time spent by myself addressing the patient's medical issues, reviewing all the data, and collaborating with patient's care team: 25 minutes. Charges/Coding Visit Charges Inpatient E&M: 04114 [facility] Hosp L1
[2023-08-04] MEDS: Acetaminophen 325 MG Tablet 650 MG PO (14:31)
[2023-08-04] MEDS: Menthol/Lanolin/Calamine/Znox 113 GM Tube 1 APPLIC TOPICAL ×2 (14:31→21:31)
[2023-08-04] MEDS: Rivaroxaban 20 MG Tablet PO (16:23)
[2023-08-04] MEDS: Budesonide Respules 0.5 MG/2 ML AMPUL.NEB. INHALATION (19:30)
[2023-08-04] MEDS: Atorvastatin Calcium 40 MG Tablet PO (21:29)
[2023-08-04] MEDS: Mirtazapine 30 MG Tablet PO (21:30)
[2023-08-05] VITALS (9 sets, daily range): BP systolic 110–138; BP diastolic 50–80; PULSE 57–77; RESP 16–18; TEMP 36.5–36.8; O2SAT 95–100; BMI 28.4
[2023-08-05] MEDS: Menthol/Lanolin/Calamine/Znox 113 GM Tube 1 APPLIC TOPICAL ×3 (04:51→23:12)
[2023-08-05] MEDS: Budesonide Respules 0.5 MG/2 ML AMPUL.NEB. INHALATION ×2 (07:25→19:26)
[2023-08-05 08:12] LABS: Hematocrit 40.4 % (40-54); Hemoglobin 12.2 g/dL (13.0-16.5); Mean Corp Hgb Conc 30.2 g/dL (32-36); Mean Corpuscular Hgb 23.4 pg (27.0-32.0); Mean Corpuscular Volume 77.4 fL (80-94); Mean Platelet Vol. 11.7 fl (6.2-12.0); Platelet Count 174 K/mm3 (150-450); RBC Distribution Width CV 19.1 % (11.6-14.6); RBC Distribution Width SD 52.7 fl (35.1-43.9); Red Blood Count 5.22 M/mm3 (4.6-6.2); White Blood Count 5.1 K/mm3 (4.4-11.0)
[2023-08-05 08:31] LABS: Anion Gap 8 (5-15); BUN 27 mg/dL (7-18); BUN/Creat Ratio 15.6 RATIO (10-20); Calcium,Total 8.3 mg/dL (8.5-10.1); Chloride 115 mmol/L (98-107); Creatinine, Serum 1.73 mg/dL (0.70-1.30); EST Glomerular Filtration Rate 44 mL/min (>60); Est Glom Filt Rate - Afr Amer 53 mL/min (>60); Estimated Creatinine Clearance 57.05 ml/min; Glucose 96 mg/dL (74-106); Potassium 3.9 mmol/L (3.5-5.1); Sodium Level 141 mmol/L (136-145)
[2023-08-05] MEDS: Metoprolol Tartrate 25 MG Tablet PO ×2 (09:16→23:11)
[2023-08-05] MEDS: Aspirin 81 MG TAB.CHEW PO (09:16)
[2023-08-05] MEDS: rifAXIMin 550 MG Tablet PO ×2 (09:17→23:11)
[2023-08-05] MEDS: Mycophenolate Mofetil 250 MG Capsule 500 MG PO ×2 (09:17→23:12)
[2023-08-05] MEDS: Pantoprazole Sodium 40 MG Tablet PO ×2 (09:17→23:11)
[2023-08-05] MEDS: Tacrolimus 0.5 MG Capsule PO ×2 (09:17→23:11)
[2023-08-05] MEDS: dilTIAZem CD 120 MG Capsule PO (09:17)
[2023-08-05] MEDS: Lactulose 20 GM/30 ML UDC 30 GM PO ×4 (09:18→23:11)
--- NOTE | 2023-08-05 12:32 | PN.HOSP_ITS ---
Reason for Visit Reason for Visit: Diagnoses Acute embolism and thrombosis of unspecified deep veins of unspecified lower ex tremity (07/25/23) Acute embolism and thrombosis of right femoral vein (07/25/23) Chest pain, unspecified (07/25/23) Hematuria, unspecified (07/25/23) Subjective Subjective No acute events overnight. Patient seen at bedside this morning. Sitting up comfortably bedside chair, conversing normally, no acute distress. Appears similar to previous days. No new concerns today. Objective Data Objective Data Vital Signs: Vital Signs Temp Pulse Resp BP Pulse Ox O2 Del Method 98.1 F 73 18 138/79 H 100 Room Air 08/05/23 09:13 08/05/23 09:16 08/05/23 09:13 08/05/23 09:16 08/05/23 09:13 08/05/23 09:13 Oxygen Delivery Method Room Air Weight: 95.1 kg Body Mass Index (BMI) 28.4 Intake & Output: Intake and Output for Last 24 Hours 08/03/23 08/04/23 08/05/23 23:59 23:59 23:59 Intake Total 240 / 240 360 / 360 120 / 120 Output Total 1250 / 1250 2400 / 2400 400 / 400 Balance -1010 / -1010 -2040 / -2040 -280 / -280 Lab / Micro Data 08/05/23 07:39 08/05/23 07:39 Labs: Laboratory Results - last 24 hr 08/05/23 07:39: WBC 5.1, RBC 5.22, Hgb 12.2 L, Hct 40.4, MCV 77.4 L, MCH 23.4 L, MCHC 30.2 L, RDW Std Deviation 52.7 H, RDW Coeff of Anil 19.1 H, Plt Count 174, MPV 11.7, Sodium 141, Potassium 3.9, Chloride 115 H, Carbon Dioxide 18.0 L, Anion Gap 8, BUN 27 H, Creatinine 1.73 H, Estim Creat Clear Calc 57.05, Est GFR (MDRD) Af Amer 53 L, Est GFR (MDRD) Non-Af 44 L, BUN/Creatinine Ratio 15.6, Glucose 96, Calcium 8.3 L Micro: Microbiology 07/26/23 00:47 Mucosa - Nose Respiratory Panel (PCR) - Final 07/25/23 23:47 Urine Catheter - Catheter Legionella Antigen - Final 07/25/23 23:47 Urine Catheter - Catheter Streptococcus pneumoniae Antigen (M - Final Physical Exam Const alert and no apparent distress Constitutional Narrative: Middle-age male, obese, mild MRDD, otherwise sitting up comfortably in bed, answering questions appropriately, no acute distress. General Appearance: cooperative and comfortable HEENT normocephalic, head/scalp atraumatic, hearing grossly normal bilaterally and nasal mucous membranes and turbinates normal Eyes PERRL, EOMs intact bilaterally and conjunctivae normal Neck full ROM Chest inspection of chest normal Resp normal respiratory effort and no use of accessory muscles Resp Narrative: Good breath sounds bilaterally throughout, improved from admission. Cardio regular rate, regular rhythm, no murmurs and peripheral pulses 2+ throughout GI normal to inspection, nondistended, normoactive bowel sounds, soft to palpation, non-tender and non-distended Back/Spine normal ROM Extremity full ROM Extremity Narrative: Trace lower extremity edema noted, stable. Skin no rashes or lesions noted Neuro moves all extremities and no focal motor deficits Speech: speech normal Psych mental status grossly normal Assessment & Plan Assessment/Plan (1) DVT (deep venous thrombosis): QUALIFIERS: DVT location: lower extremity Affected thrombotic vein of extremity: femoral Laterality: right Chronicity: acute Qualified Code(s): I82.411 - Acute embolism and thrombosis of right femoral vein (2) Hematuria: PLAN: Plan Patient is a 58-year-old male who presented to [facility] ED on 07/25/2023 with worsening chest pain. 1. Acute DVT and concern for acute PE, history of DVT/PE On chart review, patient had DVT/PE back in 2018. Appears that he completed a 3-month course of Xarelto and tolerated this without issue. Patient was then diagnosed with new onset A-fib in December 2022, was started on Eliquis for this. He unfortunately had a GI bleed with anemia requiring blood transfusion on Eliquis and the Eliquis was discontinued. Has not had any further bleeding episodes since then. Presented on this admission with symptoms concerning for DVT/PE. CTA chest on admit showed bilateral infiltrates of unclear etiology, unfortunately contrast timing was poor and it was a nondiagnostic study but PE cannot be ruled out. Lower extremity duplex ultrasound positive for right common femoral vein and right posterior tibial pain DVT. TTE showed normal EF, mildly elevated right ventricular systolic pressure, no strain noted. Started on therapeutic Lovenox on admission with symptomatic improvement. Switched to Xarelto, no loading dose as patient was stable on room air and has history of GI bleed as noted below. Vascular surgery evaluated on 08/01, suspect hematuria is likely secondary to traumatic Ga placement, noted that patient's hemoglobin has remained stable and has fairly minimal hematuria. Recommended no IVC filter placement and okay to continue Xarelto. ? Continue Xarelto. Continue to monitor CBC daily. 2. History of neurogenic bladder requiring intermittent straight cath Patient straight cathed himself at his assisted living facility, has done this for many years. Nursing staff noted that patient is a difficult straight cath so Ga was placed on admission. Patient has complex history including recurrent UTIs, and it appears that he has difficulty straight cathing himself on a regular basis. ? Continue Ga catheter.. Will plan to continue Ga on discharge as well, with outpatient follow-up with urology postdischarge. 3. Mild debility, suspected need for extended hospital stay ? PT/OT/case management following. Planning for SNF on discharge, pre-CERT pending. Unfortunately still waiting for PASRR for his baseline disability to be completed in order to move forward with discharge. 4. Hematuria Noted for the past several days. Hemoglobin has remained stable and patient has been hemodynamically stable. Presumed secondary to traumatic Ga insertion. Vascular surgery evaluated as above for need for possible IVC filter placement; agreed that traumatic Ga was reason for mild hematuria and recommended continuing Xarelto with no need for IVC filter placement. ? Continue to monitor urine output and CBC daily. 5. History of GI bleed Patient hospitalized in December 2022 for NSTEMI type II suspected to be secondary to PE versus A-fib with RVR. Started on Eliquis at that time, was discharged from that hospitalization on 01/01/2023. Presented again to the hospital on 01/15 with worsening abdominal pain and was found to have decreasing hemoglobin. Hemoglobin decreased down to 6.8 and patient required 2 units packed red blood cells at that time. Was suspected the patient a lower GI bleed and Eliquis was discontinued. ? Hemoglobin has been stable around 10-11 during hospitalization. Continue home PPI twice daily. Continue to monitor daily CBC. 6. Concern for community-acquired pneumonia, resolved ? Chest imaging findings on admit as noted above. Clinical symptoms not consistent with pneumonia. Infectious workup negative. Was started on chante thromycin and ceftriaxone on admission for concern for CAP, discontinued on 07/25. Stable. 7. Mild MRDD ? Per history. Lives in assisted living facility. At baseline mentation. Chronic medical conditions: ? Obesity: BMI 30 on admit. Complicates hospital course, care and prognosis. ? History of renal transplant for previous ESRD, now CKD stage IIIb: Follows with outpatient neurology. Creatinine 2.08 on admit, baseline creatinine 1.5- 1.9, improved to baseline on hospital day 2. Continue home tacrolimus. Given low suspicion for pneumonia, okay to continue home CellCept as well. ? Paroxysmal A-fib: Not chronically anticoagulated secondary to GI bleed history. Continue home aspirin, metoprolol, diltiazem. ? Nonobstructive CAD/hypertension/hyperlipidemia: Continue home aspirin, statin, metoprolol, diltiazem. ? Anxiety and depression: Continue home mirtazapine. ? Chronic liver disease of unclear etiology: Follows with outpatient gastroenterology. Continue home lactulose and rifaximin. DVT prophylaxis: Xarelto CODE STATUS: Full code, verified Expected disposition: SNF, medically ready on 07/27, awaiting placement Total clinical time spent by myself addressing the patient's medical issues, reviewing all the data, and collaborating with patient's care team: 25 minutes. Charges/Coding Visit Charges Inpatient E&M: 77107 [facility] [[email or web address]] Hosp L1
[2023-08-05] MEDS: Rivaroxaban 20 MG Tablet PO (16:56)
[2023-08-05] MEDS: Mirtazapine 30 MG Tablet PO (23:11)
[2023-08-05] MEDS: Atorvastatin Calcium 40 MG Tablet PO (23:12)
[2023-08-06 04:50] VITALS: BMI 28.7
[2023-08-06 05:00] VITALS: BP 108/56; PULSE 71; RESP 16; TEMP 36.6; O2SAT 95
[2023-08-06] MEDS: Menthol/Lanolin/Calamine/Znox 113 GM Tube 1 APPLIC TOPICAL ×2 (05:24→13:29)
[2023-08-06 07:13] VITALS: PULSE 69; RESP 20
[2023-08-06] MEDS: Budesonide Respules 0.5 MG/2 ML AMPUL.NEB. INHALATION (07:13)
--- NOTE | 2023-08-06 08:46 | CASEMGMT ---
Addendum entered by Roshni Pat 08/06/23 12:38: Social Work STUART called pt's sister Evaristo in regard to pt. She did speak w/Alejo, and is planning to pick pt up later today, wants to make sure that [facility] can get pt's medications for him. STUART did send over the discharge instructions via CarePager. STUART called the SW, Seble Santoyo, asked if they need actual scripts for the new meds. They do, she states if they do not have the medications on hand they will send someone to the pharmacy to get them. SW explained will send the scripts in the packet. SW texted physician requesting paper scripts. MARTHA Seymour Addendum entered by Roshni Pat 08/06/23 10:30: Social Work [facility] can take pt back, they can manage the Ga as well. STUART called brother/KARIS Dhillon, explained the process for the further review and that we are still waiting, may not get results even today. STUART explained in the interim pt is moving well, walked 240 feet w/PT yesterday. STUART explained to Alejo that pt may not qualify under insurance for [facility] the [facility]. STUART explained [facility] said they also can manage pt's Ga catheter. Alejo states he does not think that [facility] can manage the Ga, and is inquiring why pt has the Ga in at present. He states [facility] STUART explained will ask physician. STUART spoke w/physician, he is in agreement with discontinuing the Ga catheter, and agreeable for discharge today back to [facility]. STUART called pt's brother/KARIS Dhillon, he is fine w/pt returning to [facility] today since the Ga is getting pulled. STUART did let him know as per physician pt should follow up w/a urologist. STUART will continue to follow for discharge back to [facility]. As per Alejo, pt's sister Evaristo will take pt back when he is discharged. MARTHA Seymour Original Note: Social Work SW received a message from Ethan Patterson([phone], [phone]) stating he needs a med list for pt. STUART called Ethan, message left. STUART called back, spoke w/metal coater operator, attained fax number and faxed med list to Ethan. STUART reviewed chart, pt walking further with therapy. STUART called the SW at [facility], Seblelevi Santoyo, to inquire if it may be possible for pt to return to [facility], given how he is moving. SW also did explain he has a catheter in. She states they may be able to take pt back in [place], SW explained will send updates in [facility] for their review, if they feel they can manage pt in [place], will reach out to family. SW did send updates via Careport to [facility] for review. SW awaiting correspondence back from [facility] regarding whether or not pt can return to [facility]. MARTHA Seymour
[2023-08-06] MEDS: Aspirin 81 MG TAB.CHEW PO (08:53)
[2023-08-06 09:00] VITALS: PULSE 76
[2023-08-06] MEDS: Metoprolol Tartrate 25 MG Tablet PO (09:00)
[2023-08-06] MEDS: Lactulose 20 GM/30 ML UDC 30 GM PO ×2 (09:00→13:26)
[2023-08-06] MEDS: Mycophenolate Mofetil 250 MG Capsule 500 MG PO (09:00)
[2023-08-06] MEDS: Tacrolimus 0.5 MG Capsule PO (09:01)
[2023-08-06] MEDS: Pantoprazole Sodium 40 MG Tablet PO (09:01)
[2023-08-06] MEDS: rifAXIMin 550 MG Tablet PO (09:01)
[2023-08-06] MEDS: dilTIAZem CD 120 MG Capsule PO (09:01)
[2023-08-06 10:00] VITALS: BP 127/84; PULSE 75; RESP 16; TEMP 36.8; O2SAT 98
--- NOTE | 2023-08-06 10:35 | DCINST_ITS ---
Discharge Instructions Diet Discharge Diet: No restrictions Activity Discharge Activity: No Restrictions Weight Bearing Status: Full weight bearing Follow Up Care Test Results: Test results from this visit will be discussed in further detail at your follow- up appointment, if applicable. Discharge Plan Admission Admit Date/Time: 07/25/23 23:26 Primary Reason for Your Visit: Chest pain Attending Provider: Ralf Tsang Primary Care Provider: Mike Bella Consulting Providers: Jesica Russo; Ralf Tsang; Ambrosio Tran; Luis Armando Chapman Discharge Orders/Prescriptions Prescriptions: New aspirin 81 mg Tablet,Chewable 81 mg PO BREAKFAST 30 Days Qty: 0 0RF Xarelto 20 mg Tablet 20 mg PO DINNER 30 Days Qty: 0 0RF Continued mycophenolate mofetil 500 MG tablet 500 mg PO BID multivitamin Tablet 1 tab PO DAILY lactulose 20 gram/30 mL solution 45 ml PO 4X/DAY Xifaxan 550 mg tablet 550 mg PO BID tacrolimus 0.5 mg capsule 0.5 mg PO BID mirtazapine 30 mg tablet 30 mg PO QHS diltiazem HCl [Cardizem LA] 120 mg tablet extended release 24 hr 120 mg PO DAILY Qty: 30 0RF metoprolol tartrate 25 mg Tablet 25 mg PO BID Qty: 0 0RF atorvastatin 40 mg tablet 40 mg PO QHS pantoprazole 40 mg tablet,delayed release (DR/EC) 40 mg PO DAILY Referrals / Follow Up: Mike Bella MD [Primary Care Provider] - Disposition Disposition (needs filled in before D/C Order can be placed): Assisted Living
--- NOTE | 2023-08-06 10:38 | DS.PCM_ITS ---
Providers Date of Admission: 07/25/23 Date of Discharge: 08/06/23 Primary Care Physician: Dr. Mike Bella MD Consultations 08/01/23 13:39 Consult: Vascular Surgery Routine Consulting Provider: Ambrosio Tran Reason for Consult: Possible need for IVC filter EMERGENT Consult: No MD Notified: Yes Date Notified: 08/01/23 Time Notified: 13:40 Method of Notification: Verbal Reason For Visit: CHEST PAIN Diagnosis Discharge Diagnosis (1) DVT (deep venous thrombosis): Status: Acute Code(s): I82.409 - Acute embolism and thrombosis of unspecified deep veins of unspecified lower extremity Qualifiers: Affected thrombotic vein of extremity: femoral Chronicity: acute DVT l ocation: lower extremity Laterality: right Qualified Code(s): I82.411 - Acute embolism and thrombosis of right femoral vein (2) Hematuria: Status: Acute Code(s): R31.9 - Hematuria, unspecified Medications at Discharge Home Medications mycophenolate mofetil 500 mg tablet 500 mg PO BID TRANSPLANT ANTI-REJECTION 07/14/16 multivitamin 1 tab PO DAILY SUPPLEMENT 02/13/22 lactulose 20 gram/30 mL oral solution 45 ml PO 4X/DAY hepatic failure 06/13/22 rifaximin 550 mg tablet (Xifaxan) 550 mg PO BID ANTIBIOTIC 07/16/22 mirtazapine 30 mg tablet 30 mg PO QHS DEPRESSION 11/01/22 diltiazem HCl 120 mg tablet,extended release 24 hr (Cardizem LA) 120 mg PO DAILY BLOOD PRESSURE #30 tabs 01/01/23 metoprolol tartrate 25 mg tablet 25 mg PO BID BLOOD PRESSURE #0 tabs 01/01/23 tacrolimus 0.5 mg capsule, immediate-release 0.5 mg PO BID TRANSPLANT ANTI- REJECTION 01/15/23 atorvastatin 40 mg tablet 40 mg PO QHS 07/25/23 pantoprazole 40 mg tablet,delayed release 40 mg PO DAILY 07/25/23 aspirin 81 mg capsule 81 mg PO DAILY 30 days #30 caps 08/06/23 rivaroxaban 20 mg tablet (Xarelto) 20 mg PO DAILY 30 days #30 tabs 08/06/23 Hospital Course Operations None Procedures EKG, Transthoracic echo and - (Chest x-ray, CTA chest, venous Doppler study) Summary of Care Provided Minutes Spent on Discharge: 35 Hospital Course: Patient is a 58-year-old male who presented to [facility] ED on 07/25/2023 with worsening chest pain. Hospital course as noted below. Patient discharged back to assisted living facility with home health care services in stable condition on 08/05. 1. Acute DVT and concern for acute PE, history of DVT/PE On chart review, patient had DVT/PE back in 2018. Appears that he completed a 3-month course of Xarelto and tolerated this without issue. Patient was then diagnosed with new onset A-fib in December 2022, was started on Eliquis for this. He unfortunately had a GI bleed with anemia requiring blood transfusion on Eliquis and the Eliquis was discontinued. Has not had any further bleeding episodes since then. Presented on this admission with symptoms concerning for DVT/PE. CTA chest on admit showed bilateral infiltrates of unclear etiology, unfortunately contrast timing was poor and it was a nondiagnostic study but PE cannot be ruled out. Lower extremity duplex ultrasound positive for right common femoral vein and right posterior tibial pain DVT. TTE showed normal EF, mildly elevated right ventricular systolic pressure, no strain noted. Started on therapeutic Lovenox on admission with symptomatic improvement. Switched to Xarelto, no loading dose as patient was stable on room air and has history of GI bleed as noted below. Vascular surgery evaluated on 08/01, suspect hematuria is likely secondary to traumatic Ga placement, noted that patient's hemoglobin has remained stable and has fairly minimal hematuria. Recommended no IVC filter placement and okay to continue Xarelto. ? Continue Xarelto on discharge. 2. History of neurogenic bladder requiring intermittent straight cath Patient straight cathed himself at his assisted living facility, has done this for many years. Nursing staff noted that patient is a difficult straight cath so Ga was placed on admission. Patient has complex history including recurrent UTIs, and it appears that he has difficulty straight cathing himself on a regular basis. ? Initially recommended that patient continue Ga catheter on discharge with outpatient follow-up with urology, given that he has some difficulty straight cathing himself and has a history of recurrent UTIs. However, family was concerned with him keeping Ga catheter in when returning to assisted living as he had not done this before. Ga catheter was removed on day of discharge with plan to continue straight cathing going forward. Outpatient follow-up with urology in the next 1 to 2 weeks. 3. Mild debility, suspected need for extended hospital stay ? PT/OT/case management followed. Initial plan to go to SNF on discharge but after discussion with family on day of discharge, they were comfortable with him returning back to his assisted living facility with home health care services on discharge. 4. Hematuria, resolved Noted during middle of hospitalization. Hemoglobin remained stable and patient remained hemodynamically stable. Presumed secondary to traumatic Ga insertion. Vascular surgery evaluated as above for need for possible IVC filter placement; agreed that traumatic Ga was reason for mild hematuria and recommended continuing Xarelto with no need for IVC filter placement. ? Hematuria resolved prior to discharge. Hemoglobin remained stable during hospitalization. 5. History of GI bleed Patient hospitalized in December 2022 for NSTEMI type II suspected to be secondary to PE versus A-fib with RVR. Started on Eliquis at that time, was discharged from that hospitalization on 01/01/2023. Presented again to the hospital on 01/15 with worsening abdominal pain and was found to have decreasing hemoglobin. Hemoglobin decreased down to 6.8 and patient required 2 units packed red blood cells at that time. Was suspected the patient a lower GI bleed and Eliquis was discontinued. ? Hemoglobin remained stable around 10-11 during hospitalization. Continue home PPI twice daily. 6. Concern for community-acquired pneumonia, resolved ? Chest imaging findings on admit as noted above. Clinical symptoms not consis tent with pneumonia. Infectious workup negative. Was started on azithromycin and ceftriaxone on admission for concern for CAP, discontinued on 07/25. Stable. 7. Mild MRDD ? Per history. Lives in assisted living facility. At baseline mentation during hospitalization. Chronic medical conditions: ? Obesity: BMI 30 on admit. Complicates hospital course, care and prognosis. ? History of renal transplant for previous ESRD, now CKD stage IIIb: Follows with outpatient neurology. Creatinine 2.08 on admit, baseline creatinine 1.5- 1.9, improved to baseline on hospital day 2. Continue home tacrolimus. Given low suspicion for pneumonia, okay to continue home CellCept as well. ? Paroxysmal A-fib: Not chronically anticoagulated secondary to GI bleed history. Continue home aspirin, metoprolol, diltiazem. ? Nonobstructive CAD/hypertension/hyperlipidemia: Continue home aspirin, statin, metoprolol, diltiazem. ? Anxiety and depression: Continue home mirtazapine. ? Chronic liver disease of unclear etiology: Follows with outpatient gastroenterology. Continue home lactulose and rifaximin. Total clinical time spent by myself addressing the patient's medical issues, reviewing all the data, and collaborating with patient's care team: 35 minutes. Physical Exam Const alert and no apparent distress Constitutional Narrative: Middle-age male, obese, mild MRDD, otherwise sitting up comfortably in bed, answering questions appropriately, no acute distress. General Appearance: cooperative and comfortable HEENT normocephalic, head/scalp atraumatic, hearing grossly normal bilaterally and nasal mucous membranes and turbinates normal Eyes PERRL, EOMs intact bilaterally and conjunctivae normal Neck full ROM Chest inspection of chest normal Resp normal respiratory effort and no use of accessory muscles Resp Narrative: Good breath sounds bilaterally throughout, improved from admission. Cardio regular rate, regular rhythm, no murmurs and peripheral pulses 2+ throughout GI normal to inspection, nondistended, normoactive bowel sounds, soft to palpation, non-tender and non-distended Back/Spine normal ROM Extremity full ROM Extremity Narrative: Trace lower extremity edema noted, stable. Skin no rashes or lesions noted Neuro moves all extremities and no focal motor deficits Speech: speech normal Psych mental status grossly normal Weight / BMI Weight Weight: 96 kg Body Mass Index (BMI) 28.7 ABG / Lab / Microbiology Data 08/05/23 07:39 08/05/23 07:39 Microbiology: Microbiology 07/26/23 00:47 Mucosa - Nose Respiratory Panel (PCR) - Final 07/25/23 23:47 Urine Catheter - Catheter Legionella Antigen - Final 07/25/23 23:47 Urine Catheter - Catheter Streptococcus pneumoniae Antigen (M - Final D/C Instructions Discharge Diet: No restrictions Weight Bearing Status: Full weight bearing Meaningful Use Info Meaningful Use Diagnoses (Choose all that apply): None applicable Discharge Plan Admission Admit Date/Time: 07/25/23 23:26 Primary Reason for Your Visit: Chest pain Attending Provider: Ralf Tsang Primary Care Provider: Mike Bella Consulting Providers: Jesica Russo; Ralf Tsang; Ambrosio Tran; Luis Armando Chapman Discharge Orders/Prescriptions Prescriptions: New Xarelto 20 mg tablet 20 mg PO DAILY 30 Days Qty: 30 0RF Rx Instructions: must administer with evening meal aspirin 81 mg capsule 81 mg PO DAILY 30 Days Qty: 30 0RF Continued mycophenolate mofetil 500 MG tablet 500 mg PO BID multivitamin Tablet 1 tab PO DAILY lactulose 20 gram/30 mL solution 45 ml PO 4X/DAY Xifaxan 550 mg tablet 550 mg PO BID tacrolimus 0.5 mg capsule 0.5 mg PO BID mirtazapine 30 mg tablet 30 mg PO QHS diltiazem HCl [Cardizem LA] 120 mg tablet extended release 24 hr 120 mg PO DAILY Qty: 30 0RF metoprolol tartrate 25 mg Tablet 25 mg PO BID Qty: 0 0RF atorvastatin 40 mg tablet 40 mg PO QHS pantoprazole 40 mg tablet,delayed release (DR/EC) 40 mg PO DAILY Referrals / Follow Up: Mike Bella MD [Primary Care Provider] - Disposition Disposition (needs filled in before D/C Order can be placed): Assisted Living Charges/Coding Visit Charges Inpatient E&M: 54632 Disch Hosp >30min
--- NOTE | 2023-08-06 11:55 | PHA.DC_ITS ---
Pharmacy [place] Med Reconciliation Pharmacy Service has performed discharge medication reconciliation for this patient. The patient's discharge medication list was reviewed for discrepancies and discrepancies were resolved. Medications at Discharge Home Medications mycophenolate mofetil 500 mg tablet 500 mg PO BID TRANSPLANT ANTI-REJECTION 07/14/16 multivitamin 1 tab PO DAILY SUPPLEMENT 02/13/22 lactulose 20 gram/30 mL oral solution 45 ml PO 4X/DAY hepatic failure 06/13/22 rifaximin 550 mg tablet (Xifaxan) 550 mg PO BID ANTIBIOTIC 07/16/22 mirtazapine 30 mg tablet 30 mg PO QHS DEPRESSION 11/01/22 diltiazem HCl 120 mg tablet,extended release 24 hr (Cardizem LA) 120 mg PO DAILY BLOOD PRESSURE #30 tabs 01/01/23 metoprolol tartrate 25 mg tablet 25 mg PO BID BLOOD PRESSURE #0 tabs 01/01/23 tacrolimus 0.5 mg capsule, immediate-release 0.5 mg PO BID TRANSPLANT ANTI- REJECTION 01/15/23 atorvastatin 40 mg tablet 40 mg PO QHS 07/25/23 pantoprazole 40 mg tablet,delayed release 40 mg PO DAILY 07/25/23 aspirin 81 mg chewable tablet 81 mg PO BREAKFAST 30 days #0 tabs 08/06/23 rivaroxaban 20 mg tablet (Xarelto) 20 mg PO DINNER 30 days #0 tabs 08/06/23
--- NOTE | 2023-08-06 13:37 | CASEMGMT ---
Social Work Physician wrote out pt's script, they are in pt's packet of papers to go to the [place]. SW called pt's sister Evaristo, let her know to supervisor opening and picking the papers, the scripts are with the paperwork. STUART explained that as per the [facility], they will get the scripts filled and if they cannot will send someone to the pharmacy to supervisor opening and picking the meds. Evaristo states will be here shortly to supervisor opening and picking pt. SW let pt's RN know, let Se[facility] at [facility] know, and pt know that pt's sister will be here in then next half hour or so to get pt and bring him back to [facility]. No further needs, pt to [facility] today. MARTHA Seymour
[2023-08-06 14:04] VITALS: BP 118/80; PULSE 72; RESP 16; TEMP 36.6; O2SAT 98
--- NOTE | 2023-08-07 11:53 | CASEMGMT ---
Social Work Pt's further review was completed 08/06/23, showing that [facility] was appropriate. It is this SW's understanding this review is valid for 180 days, should pt come back into the hospital observation and need SNF in the coming 6 months. MARTHA Seymour
== END 2023-08-06 10:39 | disposition home or self-care (01) ==
LOC: ED 23:23 → PCU 07-26 06:41
PROVIDERS: Internal Medicine; Admitting Provider Family Medicine; Emergency Provider Emergency Medicine; PCP Family Medicine; Visit Provider Hospitalist
DX: I82.411 Acute embolism and thrombosis of right femoral vein (principal); D61.818 Other pancytopenia; I12.0 Hypertensive chronic kidney disease with stage 5 chronic kidney disease or end stage renal disease; I48.0 Paroxysmal atrial fibrillation; I82.443 Acute embolism and thrombosis of tibial vein, bilateral; N18.32 Chronic kidney disease, stage 3b; I25.2 Old myocardial infarction; Z94.0 Kidney transplant status; D63.8 Anemia in other chronic diseases classified elsewhere; K21.9 Gastro-esophageal reflux disease without esophagitis; E78.5 Hyperlipidemia, unspecified; N31.9 Neuromuscular dysfunction of bladder, unspecified; F41.9 Anxiety disorder, unspecified; R41.89 Other symptoms and signs involving cognitive functions and awareness; R31.9 Hematuria, unspecified; R53.81 Other malaise; K76.9 Liver disease, unspecified; F70 Mild intellectual disabilities; E66.9 Obesity, unspecified; Z68.30 Body mass index [BMI] 30.0-30.9, adult; Z86.711 Personal history of pulmonary embolism; Z86.718 Personal history of other venous thrombosis and embolism; F32.A Depression, unspecified
CPT/HCPCS: 36415; 51702; 71045; 71275; 80048; 80053; 83735; 83880; 84145; 84443; 84484; 85014; 85018; 85025; 85027; 85379; 87449; 87633; 87641; 93005; 93306; 93970; 94640; 96365; 96366; 96367; 96372; 97110; 97116; 97162; 97166; 97530; 97535; 99221; 99252; 99285; J7050; Q9967; A4216; G0378; G0463

== ENCOUNTER 2023-08-16 08:17 | Outpatient (RCR) | payer MEDICARE, SELFPAY | END 2023-08-31 23:59 | LOC: LABSPEC 08:17 | PROVIDERS: PCP Family Medicine; Referring Provider Family Medicine; Visit Provider Family Medicine | DX: I12.9 Hypertensive chronic kidney disease with stage 1 through stage 4 chronic kidney disease, or unspecified chronic kidney disease (principal); K72.01 Acute and subacute hepatic failure with coma; N17.9 Acute kidney failure, unspecified | CPT/HCPCS: 82140 ==

== ENCOUNTER 2023-11-03 12:26 | Inpatient (IN) | payer MEDICARE, MEDICAID, SELFPAY ==
[2023-11-03] VITALS (10 sets, daily range): BP systolic 110–148; BP diastolic 54–102; PULSE 64–102; RESP 16–20; TEMP 36.4–36.8; O2SAT 95–100; BMI 29.1; BMI 31.9
--- NOTE | 2023-11-03 13:02 | EX.ED.DYSGE1 ---
HPI History of Present Illness Chief Complaint: Abn Labs [facility] Medical History (Updated 11/03/23 @ 16:[address] Linda Mercer MD) Anxiety and depression History of anemia History of chronic kidney disease History of deep vein thrombosis History of MO (myocardial infarction) Myocardial infarct History of encephalopathy History of pulmonary embolism History of DVT (deep vein thrombosis) Severe protein-calorie malnutrition Anemia in chronic illness Neutropenia Bladder dysfunction Immunosuppressed status Chronic kidney disease, stage 3b Pancytopenia HTN (hypertension) Mild intellectual disability Urinary retention Vocal cord dysfunction Bronchitis Pulmonary embolism CKD (chronic kidney disease), stage III Neurogenic bladder disorder DVT (deep venous thrombosis) Congenital nystagmus Home Medications ?Medication ?Instructions ?Recorded ?Last Taken ?Type mycophenolate mofetil 500 mg tablet 500 mg PO BID TRANSPLANT 07/14/16 01/26/23 History ANTI-REJECTION multivitamin 1 tab PO DAILY SUPPLEMENT 02/13/22 01/26/23 History lactulose 20 gram/30 mL oral 45 ml PO 4X/DAY hepatic failure 06/13/22 01/26/23 History solution rifaximin 550 mg tablet (Xifaxan) 550 mg PO BID ANTIBIOTIC 07/16/22 01/26/23 History mirtazapine 30 mg tablet 30 mg PO QHS DEPRESSION 11/01/22 01/25/23 History diltiazem HCl 120 mg 120 mg PO DAILY BLOOD PRESSURE #30 01/01/23 01/26/23 Rx tablet,extended release 24 hr tabs (Cardizem LA) metoprolol tartrate 25 mg tablet 25 mg PO BID BLOOD PRESSURE #0 tabs 01/01/23 01/26/23 Rx tacrolimus 0.5 mg capsule, 0.5 mg PO BID TRANSPLANT 01/15/23 01/26/23 History immediate-release ANTI-REJECTION atorvastatin 40 mg tablet 40 mg PO QHS 07/25/23 Unknown History pantoprazole 40 mg tablet,delayed 40 mg PO DAILY 07/25/23 Unknown History release aspirin 81 mg capsule 81 mg PO DAILY 30 days #30 caps 08/06/23 Unknown Rx rivaroxaban 20 mg tablet (Xarelto) 20 mg PO DAILY 30 days #30 tabs 08/06/23 Unknown Rx acetaminophen 325 mg tablet 650 mg PO Q4H PRN fever or pain 11/03/23 Unknown History allopurinol 100 mg tablet 100 mg PO DAILY URIC ACID LEVELS 11/03/23 Unknown History guaifenesin 100 mg/5 mL oral 200 mg PO Q4H PRN cough 11/03/23 Unknown History liquid (Adult Tussin Chest Congestion) magnesium hydroxide 400 mg/5 mL 30 ml PO DAILY PRN constipation 11/03/23 Unknown History oral suspension (Milk of Magnesia) Allergy/AdvReac Type Severity Reaction Status Date / Time red dye Allergy PT UNSURE Verified 11/03/23 12:27 OF REACTION Family History Mother Hypertension Father Diabetes Surgical History (Updated 08/14/23 @ 00:38 by Estelle Gupta) Renal transplant recipient Kidney transplant recipient S/P arteriovenous (AV) fistula creation Social History household members: none housing: senior care Smoking Status: Never smoker second hand exposure: No alcohol intake: never substance use type: does not use caffeine: No EXAM Physical Exam Const Vital Signs: 11/03/23 12:27 11/03/23 13:06 11/03/23 13:26 Temperature 97.5 F L Temperature Source Temporal Pulse Rate 64 76 Respiratory Rate 18 18 Respiratory Pattern Normal Blood Pressure 110/62 118/68 Blood Pressure Mean 78 84 Pulse Ox 100 97 Oxygen Delivery Method Room Air 11/03/23 14:00 11/03/23 15:00 Temperature Temperature Source Pulse Rate 88 102 H Respiratory Rate 17 16 Respiratory Pattern Blood Pressure 127/72 H 140/87 H Blood Pressure Mean 90 104 Pulse Ox 98 99 Oxygen Delivery Method Room Air MDM MDM MDM Narrative Medical decision making narrative: HISTORY OF PRESENT ILLNESS: 58-year-old male presents with concern for low hemoglobin. He is from a senior care. He is unsure what his hemoglobin has been low but does note dizziness. Per the patient's senior care they are concerned that , he will require blood transfusion secondary to significant anemia. Patient denies any bleeding diathesis. Denies any diffuse weakness, chest pain, shortness of breath, syncope. REVIEW OF SYSTEMS: Pertinent positives: Dizziness Pertinent negatives: As per HPI PHYSICAL EXAM: Nursing triage notes reviewed, Vital signs reviewed Constitutional: please see mdm HENT: MMM Eyes: Pupils equal round and reactive to light, Extraocular muscles intact Neck: No stridor, no JVD, full neck ROM Lungs: Clear to auscultation, No wheezing or rales. No increased work of breathing, no conversational dyspnea, no accessory muscle use, no nasal flaring. No respiratory distress noted Heart: Regular rate and rhythm, No murmurs, No rubs and No gallops, 2+ distal pulses (radial, femoral, posterior tibial) in all extremities Abdomen: Soft, there is no tenderness, rigidity, rebound or guarding, no obvious peritoneal signs, no palpable pulsatile abdominal masses, no auscultated abdominal bruit : No CVAT Extremities: No edema Neuro: Alert, oriented to place but not immediately oriented to person or time (baseline mental status alert and orient x 3). He does know tomorrow November 03 but struggles to tell me his first name, no obvious cranial nerve deficits, no focal weakness or loss sensation Skin: No rash or lesions noted MEDICAL DECISION MAKING: Chief Complaint: Abnormal labs concern for severe anemia requiring blood transfusion External records reviewed: Reviewed prior GI note. This time is evaluated by GI doctor, Dr. Nicholas. Prior urine cultures reviewed, grew Klebsiella pneumonia that is sensitive to Cipro (3) Paroxysmal atrial fibrillation: PLAN: ECG presently shows normal sinus rhythm. Patient not a candidate for chronic oral anticoagulation in view of cirrhosis of liver with esophageal varices and significant anemia Factors affecting care: Cirrhosis, hypertension, CKD, DVT on Xarelto Social determinants of health: none History obtained from others: halfway Consults: Gastroenterology (Dr. Nicholas), internal medicine (Dr. Mercer) MDM Narrative: Patient was hemodynamically stable, afebrile and nontoxic-appearing. Exam without focal neurologic deficits I considered the following differential diagnosis: ICH, infectious encephalopathy, severe anemia, acute kidney injury, electrolyte disturbance, GI bleed I obtained a broad lab and imaging workup to further elucidate etiology of patient complaint. ALL IMAGES (IF OBTAINED) HAVE BEEN PERSONALLY REVIEWED AND INTERPRETED BY MYSELF. EKG with atrial flutter with variable AV block, prolonged QT interval, no STEMI noted CBC with no leukocytosis, noted worsening anemia (last hemoglobin 12.2 downtrending to 7.9) No evidence coagulopathy BMP with evidence of metabolic acidosis, no significant electro disturbances, chronic CKD, chronic hyperbilirubinemia, no evidence of transaminitis or elevated alkaline phosphatase Lipase elevated consistent with mild pancreatic inflammation High-sensitivity troponin is negative, no evidence of myocardial ischemia Urinalysis appears acutely infected with positive nitrite, positive leukocyte esterase (will give IV ceftriaxone) CT scan of the head was negative for acute intracranial abnormality such as ICH or mass I have personally reviewed the patient's chest x-ray. Chest x-ray is unremarkable for pulmonary edema, pneumothorax, pneumonia or focal cardiopulmonary abnormality. The synthesis of the patient's history, physical exam, labs images suggest altered mental status secondary to likely infectious encephalopathy from UTI as well as severe anemia with a hemoglobin that has dropped approximately 4.3 g/dL over the last several months. There is concern in the setting of esophageal varices and presence of Xarelto. I discussed the case with the GI doctor on-call Dr. Nicholas who recommended admission for urgent colonoscopy. Case discussed with Dr. Mercer. The patient and/or family, caregivers express understanding. The patient and/or family, caregivers agrees with the plan. Shared decision making: I will have a discussion with the patient and or visitors regarding risk/benefits of further testing or admission. They will be made aware of of the risk/benefits inherent in this decision they will be given the opportunity to voice understanding. Total critical care time today provided was at least 0 minutes. This excludes separately billable procedures. Critical care time (if documented) is secondary to the patient having high probability of clinically significant/life threatening deterioration in the patient's condition which required my urgent intervention. Impression: 1. UTI 2. Severe anemia 3. History of esophageal varices 4. Hyperbilirubinemia Dispo: Admit This note was generated with [employer] dictation software. It may contain incorrect words, spelling, and punctuation that were not noted in review of the chart prior to signing. Lab Data Labs: Laboratory Results - last 24 hr 11/03/23 11/03/23 11/03/23 13:00 14:07 14:17 WBC 6.1 RBC 3.78 L Hgb 7.9 L Hct 27.5 L MCV 72.8 L MCH 20.9 L MCHC 28.7 L RDW Std Deviation 54.0 H RDW Coeff of Anil 20.7 H Plt Count 187 MPV 10.5 Immature Gran % (Auto) 0.300 Neut % (Auto) 66.6 Lymph % (Auto) 10.9 L Barron % (Auto) 18.0 H Eos % (Auto) 3.4 Baso % (Auto) 0.8 Absolute Neuts (auto) 4.1 Absolute Lymphs (auto) 0.67 L Nucleated RBC % 0 Differential Comment PT 22.6 H INR 2.0 Sodium 140 Potassium 3.9 Chloride 115 H Carbon Dioxide 18.0 L Anion Gap 7 BUN 28 H Creatinine 1.92 H Estim Creat Clear Calc 51.99 Est GFR (MDRD) Af Amer 47 L Est GFR (MDRD) Non-Af 39 L BUN/Creatinine Ratio 14.6 Glucose 119 H Calcium 8.3 L Total Bilirubin 1.80 H Direct Bilirubin 0.42 H AST 32 ALT 28 Alkaline Phosphatase 103 Troponin I High Sens 21 Total Protein 7.5 Albumin 3.4 Globulin 4.1 Lipase 90 H Urine Color [place] Urine Clarity Turbid Urine pH 5.0 Ur Specific [place] 1.020 Urine Protein 100 H Urine Glucose (UA) Normal Urine Ketones 5 H Urine Occult Blood 250 H Urine Nitrite Positive H Urine Bilirubin Negative Urine Urobilinogen 1 H Ur Leukocyte Esterase 500 H Urine RBC > 100 SEEN Urine WBC >100 SEEN Ur Squamous Epith Cells 0 SEEN Urine Bacteria 2+ Urine Mucus 0 SEEN Blood Type A POSITIVE Antibody Screen NEGATIVE Radiography Diagnostic Testing: Clinical Impression(s) from Imaging Studies Chest X-Ray 11/03/23 13:20 IMPRESSION: Stable chest with no acute superimposed findings since the prior study. Electronically Signed: Sean Rojas MD at 13:39 EDT , Brain CT 11/03/23 13:52 IMPRESSION: No acute intracranial process. Electronically Signed: Arian Uriarte MD at 14:08 EDT , Discharge Plan Triage Chief Complaint: Abn Labs ED Provider: Edinson Freeman Dx/Rx/DC Orders Prescriptions: No Action mycophenolate mofetil 500 MG tablet 500 mg PO BID multivitamin Tablet 1 tab PO DAILY lactulose 20 gram/30 mL solution 45 ml PO 4X/DAY Xifaxan 550 mg tablet 550 mg PO BID tacrolimus 0.5 mg capsule 0.5 mg PO BID mirtazapine 30 mg tablet 30 mg PO QHS diltiazem HCl [Cardizem LA] 120 mg tablet extended release 24 hr 120 mg PO DAILY Qty: 30 0RF metoprolol tartrate 25 mg Tablet 25 mg PO BID Qty: 0 0RF acetaminophen 325 mg tablet 650 mg PO Q4H PRN (Reason: fever or pain) allopurinol 100 mg tablet 100 mg PO DAILY guaifenesin [Adult Tussin Chest Congestion] 100 mg/5 mL liquid 200 mg PO Q4H PRN (Reason: cough) magnesium hydroxide [Milk of Magnesia] 400 mg/5 mL suspension 30 ml PO DAILY PRN (Reason: constipation) atorvastatin 40 mg tablet 40 mg PO QHS pantoprazole 40 mg tablet,delayed release (DR/EC) 40 mg PO DAILY Xarelto 20 mg tablet 20 mg PO DAILY 30 Days Qty: 30 0RF Rx Instructions: must administer with evening meal aspirin 81 mg capsule 81 mg PO DAILY 30 Days Qty: 30 0RF Primary Care Provider: Mike Bella Referrals: Mike Bella MD [Primary Care Provider] - Print Language: Somali
--- NOTE | 2023-11-03 13:07 | EKG12_ITS ---
Test Reason : ABN LABS Blood Pressure : / mmHG Vent. Rate : 074 BPM Atrial Rate : 256 BPM P-R Int : 000 ms QRS Dur : 092 ms QT Int : 438 ms P-R-T Axes : 082 020 051 degrees QTc Int : 486 ms Atrial flutter with variable A-V block Inferior infarct , age undetermined Abnormal ECG Confirmed by SUSAN MORENO, RAEANN ([id number]), editorial project manager MIGUEL ANGEL DEAL ([id number]) on 11/05/2023 9:29:51 AM Referred By: Confirmed By:RAEANN DAVIS MD
--- NOTE | 2023-11-03 13:20 | RAD_ITS ---
STUDY: X-RAY CHEST REASON FOR EXAM: Male, 58 years old. Dizziness. TECHNIQUE: Single frontal view of the chest. COMPARISON: July 25, 2023 FINDINGS: Low volume inspiration with mild diffuse interstitial pattern and basilar scarring, unchanged. There is no demonstrated pleural abnormality. Stable cardiomegaly. Normal mediastinum and alton. Prominent central pulmonary arteries unchanged Normal visualized aortic arch and descending thoracic aorta. No abnormality of the visualized soft tissue structures of the upper abdomen. RAD/Chest 1 View (Portable) IMPRESSION: Stable chest with no acute superimposed findings since the prior study. Electronically Signed: Sean Rojas MD at 13:39 EDT ,
--- NOTE | 2023-11-03 13:52 | CT_ITS ---
INDICATION: Altered mental status. EXAMINATION: CT BRAIN - CT Head or Brain W/O Contrast Injection TECHNIQUE: Multiple axial images were obtained of the head without intravenous contrast. The protocol utilizes one or more of the following dose reduction techniques: automated exposure control, adjustment of mA and/or kV according to patient size,and/or use of iterative reconstruction technique. IV Contrast dosage and agent: None. RADIATION DOSAGE (If Supplied By Facility): CTDIvol = ( 44.99 ) mGy, DLP = ( 880.47 ) mGycm COMPARISON: Prior study dated: 03/17/2023 FINDINGS: BRAIN PARENCHYMA: No intra- or extra-axial hemorrhage. No evidence of acute infarct. No intracranial mass or mass effect. There is preservation of the mena/white matter interface. Posterior fossa structures are unremarkable. CSF SPACES: Appropriate for age. No hydrocephalus. Basal cisterns are patent. CALVARIUM, SKULL BASE, PARANASAL SINUSES AND MASTOID AIR CELLS: Mucosal thickening of the right maxillary sinus. No discrete lytic or blastic abnormalities. ORBITS: Both globes, extraocular muscles, optic nerves and retrobulbar fat appear unremarkable. CT/Brain/Head without Contrast IMPRESSION: No acute intracranial process. Electronically Signed: Arian Uriarte MD at 14:08 EDT ,
[2023-11-03 13:58] LABS: AST(SGOT) 32 U/L (15-37); Alanine Aminotransfer ALT/SGPT 28 U/L (16-61); Albumin, Serum 3.4 g/dL (3.2-5.0); Alkaline Phosphatase 103 U/L (45-117); Anion Gap 7 (5-15); BUN 28 mg/dL (7-18); BUN/Creat Ratio 14.6 RATIO (10-20); Bilirubin, Direct 0.42 mg/dL (0.00-0.30); Calcium,Total 8.3 mg/dL (8.5-10.1); Chloride 115 mmol/L (98-107); Creatinine, Serum 1.92 mg/dL (0.70-1.30); EST Glomerular Filtration Rate 39 mL/min (>60); Est Glom Filt Rate - Afr Amer 47 mL/min (>60); Estimated Creatinine Clearance 51.99 ml/min; Globulin 4.1 g/dL (2.2-4.2); Glucose 119 mg/dL (74-106); Lipase 90 U/L (13-75); Potassium 3.9 mmol/L (3.5-5.1); Protein, Total 7.5 g/dL (6.4-8.2); Sodium Level 140 mmol/L (136-145); Troponin-I HS 21 pg/mL (3.0-78.0)
[2023-11-03 14:20] LABS: Mucous, Urine 0 SEEN /hpf (<or=2+); Squamous Epithelial Cells - UA 0 SEEN /hpf (0-5)
[2023-11-03 14:27] LABS: Prothrombin Time (Protime)PT. 22.6 SECONDS (11.7-14.9)
[2023-11-03 14:28] LABS: Absolute Lymphocyte Count 0.67 X10^3/uL (0.83-4.51); Absolute Neutrophil Count 4.1 X10^3/uL (2.0-7.7); Basophil# 0.05 X10^3/uL; Basophil% 0.8 % (0-1); Eosinophil# 0.21 X10^3/uL; Eosinophils% 3.4 % (0-5); Hematocrit 27.5 % (40-54); Hemoglobin 7.9 g/dL (13.0-16.5); Lymphocyte # 0.67 X10^3/ul (0.83-4.51); Lymphocyte % 10.9 % (19-41); Mean Corp Hgb Conc 28.7 g/dL (32-36); Mean Corpuscular Hgb 20.9 pg (27.0-32.0); Mean Corpuscular Volume 72.8 fL (80-94); Mean Platelet Vol. 10.5 fl (6.2-12.0); NRBC Flagged by Analyzer 0 % (0-5); Neutrophil # 4.07 X10^3/uL (2.7-7.7); Neutrophil % 66.6 % (47-70); POSITIVE MORPHOLOGY YES; Platelet Count 187 K/mm3 (150-450); RBC Distribution Width CV 20.7 % (11.6-14.6); Red Blood Count 3.78 M/mm3 (4.6-6.2); White Blood Count 6.1 K/mm3 (4.4-11.0)
[2023-11-03 14:35] LABS: Color, Urine Amber (Yellow); Glucose, Dipstick Normal (Normal); Ketone-Dipstick 5 mg/dl (Negative); Leukocyte Esterase-Dipstick 500 /ul (Negative); Nitrite-Dipstick Positive (Negative); Occult Blood-Urine 250 /ul (Negative); Protein-Dipstick 100 mg/dl (Negative); Urine Bilirubin Dipstick Negative (Negative); Urine Clarity Turbid (Clear); Urine Urobilinogen 1 mg/dl (Normal)
[2023-11-03 14:35] LABS: Differential Indicated SCAN CRITERIA MET
[2023-11-03 14:52] LABS: Bacteria 2+ /hpf (None Seen); Red Blood Cells-Urine > 100 SEEN /hpf (0-5); White Blood Cells >100 SEEN /hpf (0-5)
--- NOTE | 2023-11-03 15:21 | EKG12_ITS ---
Test Reason : REPEAT Blood Pressure : / mmHG Vent. Rate : 101 BPM Atrial Rate : 256 BPM P-R Int : 000 ms QRS Dur : 094 ms QT Int : 406 ms P-R-T Axes : 000 034 073 degrees QTc Int : 526 ms Atrial flutter with variable A-V block Prolonged QT Abnormal ECG When compared with ECG of 03-NOV-2023 13:21, MANUAL COMPARISON REQUIRED, DATA IS UNCONFIRMED Confirmed by SUSAN MORENO, RAEANN ([id number]), order editor MIGUEL ANGEL DEAL ([id number]) on 11/08/2023 10:32:13 AM Referred By: Confirmed By:RAEANN DAVIS MD
--- NOTE | 2023-11-03 15:21 | ED.RN ---
Pt complaining of chest pain. Dr. Freeman notified, see new orders
[2023-11-03] MEDS: Ceftriaxone 1 GM/50 ML BAG IV (15:40)
[2023-11-03 16:07] LABS: Troponin-I HS 19 pg/mL (3.0-78.0)
--- NOTE | 2023-11-03 16:21 | PCM.HP.STD ---
HPI - General General Date of Service: 11/03/23 Chief Complaint: Lightheaded and concern for low hgb HPI Narrative ROOSEVELT GARCIA, is a 58-year-old male history of CKD with renal transplant, GERD, DVT/PE, paroxysmal atrial fibrillation, cirrhosis with esophageal varices, neurogenic bladder, congenital nystagmus, mild intellectual disability, hypertension who presented to [facility] ED 11/03/2023 from senior living for low hemoglobin. Has been dizzy and he was sent in per senior living for this. Denies any noted bleeding. In the ED hemoglobin 7.9 with most recent check 3 months ago at 12.2. Additionally patient had UA suggestive of UTI. GI contacted who, given his varices, felt he may need EGD and recommended hospital admission. Hospitalist contacted for admission. Patient evaluated at bedside, awake and alert, reports he has been having some swelling in his legs and some possible abdominal pain also reports he has been having a dizzy feeling, did not report any other localized symptoms. [facility] Medical History (Updated 11/03/23 @ 16:[address] Linda Mercer MD) Anemia in chronic illness Anxiety and depression Bladder dysfunction Bronchitis Chronic kidney disease, stage 3b CKD (chronic kidney disease), stage III Congenital nystagmus DVT (deep venous thrombosis) History of anemia History of chronic kidney disease History of deep vein thrombosis History of DVT (deep vein thrombosis) History of encephalopathy History of KS (myocardial infarction) History of pulmonary embolism HTN (hypertension) Immunosuppressed status Mild intellectual disability Myocardial infarct Neurogenic bladder disorder Neutropenia Pancytopenia Pulmonary embolism Severe protein-calorie malnutrition Urinary retention Vocal cord dysfunction Home Medications ?Medication ?Instructions ?Recorded ?Last Taken ?Type mycophenolate mofetil 500 mg tablet 500 mg PO BID TRANSPLANT 07/14/16 01/26/23 History ANTI-REJECTION multivitamin 1 tab PO DAILY SUPPLEMENT 02/13/22 01/26/23 History lactulose 20 gram/30 mL oral 45 ml PO 4X/DAY hepatic failure 06/13/22 01/26/23 History solution rifaximin 550 mg tablet (Xifaxan) 550 mg PO BID ANTIBIOTIC 07/16/22 01/26/23 History mirtazapine 30 mg tablet 30 mg PO QHS DEPRESSION 11/01/22 01/25/23 History diltiazem HCl 120 mg 120 mg PO DAILY BLOOD PRESSURE #30 01/01/23 01/26/23 Rx tablet,extended release 24 hr tabs (Cardizem LA) metoprolol tartrate 25 mg tablet 25 mg PO BID BLOOD PRESSURE #0 tabs 01/01/23 01/26/23 Rx tacrolimus 0.5 mg capsule, 0.5 mg PO BID TRANSPLANT 01/15/23 01/26/23 History immediate-release ANTI-REJECTION atorvastatin 40 mg tablet 40 mg PO QHS 07/25/23 Unknown History pantoprazole 40 mg tablet,delayed 40 mg PO DAILY 07/25/23 Unknown History release aspirin 81 mg capsule 81 mg PO DAILY 30 days #30 caps 08/06/23 Unknown Rx rivaroxaban 20 mg tablet (Xarelto) 20 mg PO DAILY 30 days #30 tabs 08/06/23 Unknown Rx acetaminophen 325 mg tablet 650 mg PO Q4H PRN fever or pain 11/03/23 Unknown History allopurinol 100 mg tablet 100 mg PO DAILY URIC ACID LEVELS 11/03/23 Unknown History guaifenesin 100 mg/5 mL oral 200 mg PO Q4H PRN cough 11/03/23 Unknown History liquid (Adult Tussin Chest Congestion) magnesium hydroxide 400 mg/5 mL 30 ml PO DAILY PRN constipation 11/03/23 Unknown History oral suspension (Milk of Magnesia) Allergy/AdvReac Type Severity Reaction Status Date / Time red dye Allergy PT UNSURE Verified 11/03/23 12:27 OF REACTION Family History Mother Hypertension Father Diabetes Surgical History (Updated 08/14/23 @ 00:38 by Background Alonso) Kidney transplant recipient Renal transplant recipient S/P arteriovenous (AV) fistula creation Social History household members: none housing: senior living Smoking Status: Never smoker second hand exposure: No alcohol intake: never substance use type: does not use caffeine: No ROS ROS Narrative ROS positive for some abdominal discomfort, swelling in legs, dizzy feeling, no other focal complaints per patient report Vital Signs Vital Signs Vital Signs: 11/03/23 12:27 11/03/23 13:06 11/03/23 13:26 Temperature 97.5 F L Temperature Source Temporal Pulse Rate 64 76 Respiratory Rate 18 18 Respiratory Pattern Normal Blood Pressure 110/62 118/68 Blood Pressure Mean 78 84 Pulse Ox 100 97 Oxygen Delivery Method Room Air 11/03/23 14:00 11/03/23 15:00 11/03/23 16:00 Temperature Temperature Source Pulse Rate 88 102 H 81 Respiratory Rate 17 16 18 Respiratory Pattern Blood Pressure 127/72 H 140/87 H 143/84 H Blood Pressure Mean 90 104 103 Pulse Ox 98 99 97 Oxygen Delivery Method Room Air Room Air 11/03/23 16:00 Temperature 97.8 F Temperature Source Pulse Rate 88 Respiratory Rate 18 Respiratory Pattern Blood Pressure 143/54 H Blood Pressure Mean 83 Pulse Ox 97 Oxygen Delivery Method Weight Weight: 97.5 kg Body Mass Index (BMI) 29.1 Physical Exam Narrative General: Alert, answering questions appropriately, no apparent distress HEENT: Atraumatic, Eyes: Patient with congenital nystagmus noted Neck: Supple Respiratory: Clear to auscultation bilaterally, normal respiratory effort Cardiovascular: Slightly tachycardic GI: Slightly firm but no localized tenderness, no rebound, guarding, rigidity Extremities: No edema, does have fistula on right arm going length of arm Musculoskeletal: Moving all extremities Neuro: No overt focal neurological deficits Skin: No rashes appreciated Psych: Cooperative Results Lab / Micro Data 11/03/23 14:07 11/03/23 13:00 Labs: Laboratory Results - last 24 hr 11/03/23 13:00: PT 22.6 H, INR 2.0, Sodium 140, Potassium 3.9, Chloride 115 H, Carbon Dioxide 18.0 L, Anion Gap 7, BUN 28 H, Creatinine 1.92 H, Estim Creat Clear Calc 51.99, Est GFR (MDRD) Af Amer 47 L, Est GFR (MDRD) Non-Af 39 L, BUN/Creatinine Ratio 14.6, Glucose 119 H, Calcium 8.3 L, Total Bilirubin 1.80 H, Direct Bilirubin 0.42 H, AST 32, ALT 28, Alkaline Phosphatase 103, Troponin I High Sens 21, Total Protein 7.5, Albumin 3.4, Globulin 4.1, Lipase 90 H, Blood Type A POSITIVE, Antibody Screen NEGATIVE 11/03/23 14:07: WBC 6.1, RBC 3.78 L, Hgb 7.9 L, Hct 27.5 L, MCV 72.8 L, MCH 20.9 L, MCHC 28.7 L, RDW Std Deviation 54.0 H, RDW Coeff of Anil 20.7 H, Plt Count 187, MPV 10.5, Immature Gran % (Auto) 0.300, Neut % (Auto) 66.6, Lymph % (Auto) 10.9 L, [place] % (Auto) 18.0 H, Eos % (Auto) 3.4, Baso % (Auto) 0.8, Absolute Neuts (auto) 4.1, Absolute Lymphs (auto) 0.67 L, Nucleated RBC % 0, Differential Comment 11/03/23 14:17: Urine Color [place], Urine Clarity Turbid, Urine pH 5.0, Ur Specific [place] 1.020, Urine Protein 100 H, Urine Glucose (UA) Normal, Urine Ketones 5 H, Urine Occult Blood 250 H, Urine Nitrite Positive H, Urine Bilirubin Negative, Urine Urobilinogen 1 H, Ur Leukocyte Esterase 500 H, Urine RBC > 100 SEEN, Urine WBC >100 SEEN, Ur Squamous Epith Cells 0 SEEN, Urine Bacteria 2+, Urine Mucus 0 SEEN 11/03/23 15:25: Troponin I High Sens 19 Micro: Microbiology 11/03/23 13:00 Stool Stool Occult Blood ([facility]A) - Final Imaging Radiology Impression Chest X-Ray 11/03/23 13:20 IMPRESSION: Stable chest with no acute superimposed findings since the prior study. Electronically Signed: Sean Rojas MD at 13:39 EDT , Brain CT 11/03/23 13:52 IMPRESSION: No acute intracranial process. Electronically Signed: Arian Uriarte MD at 14:08 EDT , Assessment & Plan Assessment/Plan (1) Acute on chronic anemia: (2) Acute UTI: (3) Atrial fibrillation: QUALIFIERS: Atrial fibrillation type: paroxysmal Qualified Code(s): I48.0 - Paroxysmal atrial fibrillation (4) Chronic kidney disease: QUALIFIERS: Chronic kidney disease stage: stage 3 (moderate) Chronic kidney disease stage 3 subtype: stage 3a (GFR 45-59) Qualified Code(s): N18.31 - Chronic kidney disease, stage 3a (5) Cirrhosis: QUALIFIERS: Hepatic cirrhosis type: other cirrhosis Qualified Code(s): K74.69 - Other cirrhosis of liver (6) History of kidney transplant: PLAN: Plan #UTI and history of neurogenic bladder -UA suggestive of UTI -Will send urine culture -Most recent urine cultures have been growing Klebsiella sensitive Rocephin -Patient has neurogenic bladder, will place Ga as patient previously had to consistently self cath -I's and O's -IV antibiotics -IV fluids #Acute on chronic anemia -Hgb 7.8, 3 months ago was 12.2 -IV PPI -Trend H&H -Iron studies, B12, folate -FOBT negative however given history it was recommended by GI patient be admitted and considered for endoscopy -GI c/s -Hold xeralto #GERD -Continue PPI #Hx pafib/dvt/PE -Holding Xarelto and aspirin, resume once able -Continue Cardizem and bb -Resume Xarelto if no bleeding diathesis noted #Hx mild intellectual disability/nystagmus -Supportive care # History of cirrhosis -Continue lactulose and rifaximin # CKD stage IIIb with history of renal transplant -Continue home rejection medication -Will be receiving IVF #DVT ppx: Heparin subcu Linda Mercer MD Time spent in the patient's overall evaluation,decision-making process, review of diagnostic data, adjustment of management, discussion with other providers, nursing nursing and ancillary staff involved in patient's care documentation, 56 Minutes Charges/Coding Visit Charges Inpatient E&M: 25140 Init Hosp L2
--- NOTE | 2023-11-03 16:44 | ED.RN ---
Report/ update given to [facility] nurse
[2023-11-03 16:51] LABS: Immature Platelet Fraction 4.8 % (1.0-7.9); Platelet Count 211 K/mm3 (150-450); RET-HE 18.7 pg (30-35); Reticulocyte Count 1.96 % (0.5-1.5)
[2023-11-03 17:39] LABS: Ferritin 6 ng/mL (26-388); Iron 33 ug/dL (65-175); Iron Binding Capacity,Total 379 ug/dL (250-450); PERCENT IRON SATURATION 8.7 % (15.0-55.0)
[2023-11-03] MEDS: 0.9% Normal Saline (1000mL) 1,000 ML 75 ML IV (17:58)
[2023-11-03] MEDS: 0.9% Saline Lock 10 ML Syringe IV (18:00)
[2023-11-03] MEDS: Pantoprazole Sodium 40 MG in 0.9% Normal Saline (100mL MB+) 100 ML 330 MG IV (18:02)
[2023-11-03] MEDS: Lactulose 20 GM/30 ML UDC 30 GM PO ×2 (18:04→22:28)
[2023-11-03 18:27] LABS: Hematocrit 27.5 % (40-54); Hemoglobin 8.1 g/dL (13.0-16.5); Mean Corp Hgb Conc 29.5 g/dL (32-36); Mean Corpuscular Hgb 20.9 pg (27.0-32.0); Mean Corpuscular Volume 70.9 fL (80-94); Mean Platelet Vol. 10.3 fl (6.2-12.0); POSITIVE MORPHOLOGY YES; Platelet Count 183 K/mm3 (150-450); RBC Distribution Width CV 20.4 % (11.6-14.6); RBC Distribution Width SD 51.8 fl (35.1-43.9); Red Blood Count 3.88 M/mm3 (4.6-6.2); White Blood Count 6.3 K/mm3 (4.4-11.0)
[2023-11-03 18:29] LABS: Scan Indicated on CBC? Y/N YES- FLAGS NOTED
[2023-11-03 19:21] LABS: Differential Comment SCANNED
--- NOTE | 2023-11-03 19:39 | NURSING ---
attempted to call pts sister, ilana, per pts request, to let her know pt is here. no answer on her cell phone
[2023-11-03 22:18] LABS: Hematocrit 26.1 % (40-54); Hemoglobin 7.7 g/dL (13.0-16.5); Mean Corp Hgb Conc 29.5 g/dL (32-36); Mean Corpuscular Hgb 20.9 pg (27.0-32.0); Mean Corpuscular Volume 70.9 fL (80-94); POSITIVE MORPHOLOGY YES; Platelet Count 209 K/mm3 (150-450); RBC Distribution Width CV 20.4 % (11.6-14.6); RBC Distribution Width SD 51.9 fl (35.1-43.9); Red Blood Count 3.68 M/mm3 (4.6-6.2); White Blood Count 6.2 K/mm3 (4.4-11.0)
[2023-11-03] MEDS: Metoprolol Tartrate 25 MG Tablet PO (22:29)
[2023-11-03] MEDS: Heparin Injection (Vial) 5,000 UNIT/ML VIAL 5000 UNIT SC (22:29)
[2023-11-03] MEDS: rifAXIMin 550 MG Tablet PO (22:29)
[2023-11-03] MEDS: Atorvastatin Calcium 40 MG Tablet PO (22:30)
[2023-11-03] MEDS: Mirtazapine 30 MG Tablet PO (22:30)
[2023-11-03] MEDS: Tacrolimus 0.5 MG Capsule PO (22:31)
[2023-11-03] MEDS: Mycophenolate Mofetil 250 MG Capsule 500 MG PO (22:31)
[2023-11-03 23:27] LABS: Scan Indicated on CBC? Y/N YES- FLAGS NOTED
[2023-11-04] VITALS (7 sets, daily range): BP systolic 145–160; BP diastolic 93–98; PULSE 85–123; RESP 16–24; TEMP 36.4–36.7; O2SAT 96–98; BMI 31.8
[2023-11-04 02:15] LABS: Hemoglobin 7.7 g/dL (13.0-16.5); Mean Corp Hgb Conc 29.6 g/dL (32-36); Mean Corpuscular Hgb 21.3 pg (27.0-32.0); Mean Platelet Vol. 10.7 fl (6.2-12.0); POSITIVE MORPHOLOGY YES; Platelet Count 181 K/mm3 (150-450); RBC Distribution Width CV 20.2 % (11.6-14.6); Red Blood Count 3.61 M/mm3 (4.6-6.2); White Blood Count 6.5 K/mm3 (4.4-11.0)
[2023-11-04 02:27] LABS: Scan Indicated on CBC? Y/N YES- FLAGS NOTED
[2023-11-04 07:22] LABS: Absolute Lymphocyte Count 0.73 X10^3/uL (0.83-4.51); Absolute Neutrophil Count 4.6 X10^3/uL (2.0-7.7); Basophil# 0.04 X10^3/uL; Basophil% 0.6 % (0-1); Eosinophil# 0.29 X10^3/uL; Eosinophils% 4.4 % (0-5); Hematocrit 28.3 % (40-54); Hemoglobin 8.4 g/dL (13.0-16.5); Lymphocyte # 0.73 X10^3/ul (0.83-4.51); Mean Corp Hgb Conc 29.7 g/dL (32-36); Mean Corpuscular Hgb 21.5 pg (27.0-32.0); Mean Corpuscular Volume 72.4 fL (80-94); Mean Platelet Vol. 10.8 fl (6.2-12.0); Monocyte% 15.1 % (0-10); NRBC Flagged by Analyzer 0 % (0-5); Neutrophil # 4.55 X10^3/uL (2.7-7.7); Neutrophil % 68.6 % (47-70); POSITIVE MORPHOLOGY YES; Platelet Count 199 K/mm3 (150-450); RBC Distribution Width CV 20.7 % (11.6-14.6); RBC Distribution Width SD 52.9 fl (35.1-43.9); Red Blood Count 3.91 M/mm3 (4.6-6.2); White Blood Count 6.6 K/mm3 (4.4-11.0)
--- NOTE | 2023-11-04 07:24 | PN.HOSP_ITS ---
Reason for Visit Reason for Visit: Diagnoses Anemia, unspecified (11/03/23) Paroxysmal atrial fibrillation (11/03/23) Other cirrhosis of liver (11/03/23) Chronic kidney disease, stage 3a (11/03/23) Urinary tract infection, site not specified (11/03/23) Kidney transplant status (11/03/23) Subjective Subjective 58-year-old male is admitted to the [facility] floor for concerns regarding acute on chronic anemia in the setting of prior cirrhosis with portal hypertension, ESRD s/p renal transplant, A-fib on chronic anticoagulation with Xarelto. There are no overt signs of bleeding, patient has been stable during this hospitalization. Objective Data Objective Data Vital Signs: Vital Signs Temp Pulse Resp BP Pulse Ox O2 Del Method 97.5 F L 93 18 150/96 H 96 Room Air 11/04/23 06:08 11/04/23 06:08 11/04/23 06:08 11/04/23 06:08 11/04/23 06:08 11/04/23 06:08 Oxygen Delivery Method Room Air Weight: 235 lb 10.786 oz Body Mass Index (BMI) 31.8 Intake & Output: Intake and Output for Last 24 Hours 11/02/23 11/03/23 11/04/23 23:59 23:59 23:59 Intake Total 160 / 160 300 / 300 Output Total 520 / 520 650 / 650 Balance -360 / -360 -350 / -350 Lab / Micro Data 11/04/23 09:46 11/04/23 06:16 Labs: Laboratory Results - last 24 hr 11/03/23 13:00: PT 22.6 H, INR 2.0, Sodium 140, Potassium 3.9, Chloride 115 H, C arbon Dioxide 18.0 L, Anion Gap 7, BUN 28 H, Creatinine 1.92 H, Estim Creat Clear Calc 51.99, Est GFR (MDRD) Af Amer 47 L, Est GFR (MDRD) Non-Af 39 L, BUN/Creatinine Ratio 14.6, Glucose 119 H, Calcium 8.3 L, Iron 33 L, TIBC 379, I bere Saturation 8.7 L, Ferritin 6 L, Total Bilirubin 1.80 H, Direct Bilirubin 0.42 H, AST 32, ALT 28, Alkaline Phosphatase 103, Troponin I High Sens 21, Total Protein 7.5, Albumin 3.4, Globulin 4.1, Lipase 90 H, Folate 17.70, Blood Type A POSITIVE, Antibody Screen NEGATIVE 11/03/23 14:07: WBC 6.1, RBC 3.78 L, Hgb 7.9 L, Hct 27.5 L, MCV 72.8 L, MCH 20.9 L, MCHC 28.7 L, RDW Std Deviation 54.0 H, RDW Coeff of Anil 20.7 H, Plt Count 187, MPV 10.5, Immature Gran % (Auto) 0.300, Neut % (Auto) 66.6, Lymph % (Auto) 10.9 L, [place] % (Auto) 18.0 H, Eos % (Auto) 3.4, Baso % (Auto) 0.8, Absolute Neuts (auto) 4.1, Absolute Lymphs (auto) 0.67 L, Nucleated RBC % 0, Differential Comment , Immature Plt Fraction 4.8, Retic Count 1.96 H, Immature Retic Fraction 32.30 H, Retic Hgb Equivalent 18.7 L 11/03/23 14:17: Urine Color [place], Urine Clarity Turbid, Urine pH 5.0, Ur Specific [place] 1.020, Urine Protein 100 H, Urine Glucose (UA) Normal, Urine Ketones 5 H, Urine Occult Blood 250 H, Urine Nitrite Positive H, Urine Bilirubin Negative, Urine Urobilinogen 1 H, Ur Leukocyte Esterase 500 H, Urine RBC > 100 SEEN, Urine WBC >100 SEEN, Ur Squamous Epith Cells 0 SEEN, Urine Bacteria 2+, Urine Mucus 0 SEEN 11/03/23 15:25: Troponin I High Sens 19 11/03/23 18:05: WBC 6.3, RBC 3.88 L, Hgb 8.1 L, Hct 27.5 L, MCV 70.9 L, MCH 20.9 L, MCHC 29.5 L, RDW Std Deviation 51.8 H, RDW Coeff of Anil 20.4 H, Plt Count 183, MPV 10.3, Differential Comment SCANNED 11/03/23 21:50: WBC 6.2, RBC 3.68 L, Hgb 7.7 L, Hct 26.1 L, MCV 70.9 L, MCH 20.9 L, MCHC 29.5 L, RDW Std Deviation 51.9 H, RDW Coeff of Anil 20.4 H, Plt Count 209, MPV 11.0 07/04/24 01:18: WBC 6.5, RBC 3.61 L, Hgb 7.7 L, Hct 26.0 L, MCV 72.0 L, MCH 21.3 L, MCHC 29.6 L, RDW Std Deviation 52.0 H, RDW Coeff of Anil 20.2 H, Plt Count 181, MPV 10.7 Micro: Microbiology 11/03/23 13:00 Stool Stool Occult Blood ([facility]A) - Final Radiography Diagnostic Testing: Radiology Impression Chest X-Ray 11/03/23 13:20 IMPRESSION: Stable chest with no acute superimposed findings since the prior study. Electronically Signed: Sean Rojas MD at 13:39 EDT , Brain CT 11/03/23 13:52 IMPRESSION: No acute intracranial process. Electronically Signed: Arian Uriarte MD at 14:08 EDT , Physical Exam Const alert and no apparent distress HEENT head/scalp atraumatic Eyes PERRL and EOMs intact bilaterally Neck no lymphadenopathy Resp normal respiratory effort and no retractions Cardio regular rate and regular rhythm GI normal to inspection, nondistended, normoactive bowel sounds Auscultation: hyperactive bowel sounds Extremity normal to inspection Neuro oriented x3 and CN's II-XII intact bilaterally Psych affect normal Assessment & Plan Assessment/Plan (1) Acute on chronic anemia: PLAN: Plan 58-year-old male is admitted to the [facility] floor for concerns regarding acute on chronic anemia in the setting of prior cirrhosis with portal hypertension, ESRD s/p renal transplant, A-fib on chronic anticoagulation with Xarelto. #Acute on chronic anemia #Iron deficiency anemia Serum iron 33, TIBC 379 with ferritin of 6. -Hemoglobin is 7.7, stable from 8.1 -No features of acute bleeding, hemodynamically stable at this time. -Gastroenterology consult given the chronic anticoagulation status -FOBT negative however given history it was recommended by GI patient be admitted and considered for endoscopy -Hold xeralto #UTI and history of neurogenic bladder -UA suggestive of UTI -Urine cultures pending -Most recent urine cultures have been growing Klebsiella sensitive Rocephin -Patient has neurogenic bladder, will place Ga as patient previously had to consistently self cath -I's and O's -IV antibiotics -IV fluids #GERD -Continue PPI #Hx pafib/dvt/PE -Holding Xarelto and aspirin, resume once able -Continue Cardizem and bb -Resume Xarelto if no bleeding diathesis noted #Hx mild intellectual disability/nystagmus -Supportive care # History of cirrhosis -Continue lactulose and rifaximin # CKD stage IIIb with history of renal transplant -Continue home rejection medication -Will be receiving IVF #DVT ppx: Heparin subcu Charges/Coding Visit Charges Inpatient E&M: 36917 Subs Hosp L2
[2023-11-04 07:39] LABS: ALB/GLOB Ratio 0.9 RATIO (0.9-2.4); AST(SGOT) 34 U/L (15-37); Alanine Aminotransfer ALT/SGPT 29 U/L (16-61); Albumin, Serum 3.4 g/dL (3.2-5.0); Alkaline Phosphatase 101 U/L (45-117); Anion Gap 9 (5-15); BUN 26 mg/dL (7-18); BUN/Creat Ratio 15.2 RATIO (10-20); Calcium,Total 8.4 mg/dL (8.5-10.1); Chloride 119 mmol/L (98-107); Creatinine, Serum 1.71 mg/dL (0.70-1.30); EST Glomerular Filtration Rate 44 mL/min (>60); Est Glom Filt Rate - Afr Amer 53 mL/min (>60); Estimated Creatinine Clearance 60.94 ml/min; Globulin 3.7 g/dL (2.2-4.2); Glucose 98 mg/dL (74-106); Potassium 3.9 mmol/L (3.5-5.1); Protein, Total 7.1 g/dL (6.4-8.2); Sodium Level 143 mmol/L (136-145)
[2023-11-04 08:00] LABS: Differential Indicated SCAN CRITERIA MET
[2023-11-04] MEDS: Pantoprazole Sodium 40 MG in 0.9% Normal Saline (100mL MB+) 100 ML 330 MG IV ×2 (09:41→20:34)
[2023-11-04] MEDS: Mycophenolate Mofetil 250 MG Capsule 500 MG PO ×2 (09:52→20:33)
[2023-11-04] MEDS: Tacrolimus 0.5 MG Capsule PO ×2 (09:52→20:33)
[2023-11-04 10:25] LABS: Hemoglobin 7.9 g/dL (13.0-16.5); Mean Corp Hgb Conc 29.3 g/dL (32-36); Mean Corpuscular Volume 71.6 fL (80-94); Mean Platelet Vol. 10.9 fl (6.2-12.0); POSITIVE MORPHOLOGY YES; Platelet Count 182 K/mm3 (150-450); RBC Distribution Width CV 20.3 % (11.6-14.6); RBC Distribution Width SD 51.9 fl (35.1-43.9); Red Blood Count 3.77 M/mm3 (4.6-6.2)
[2023-11-04 10:48] LABS: Scan Indicated on CBC? Y/N YES- FLAGS NOTED
[2023-11-04] MEDS: Ceftriaxone 1 GM/50 ML BAG IV (10:55)
[2023-11-04] MEDS: dilTIAZem CD 120 MG Capsule PO (11:01)
[2023-11-04] MEDS: Lactulose 20 GM/30 ML UDC 30 GM PO ×4 (11:02→20:31)
[2023-11-04] MEDS: Heparin Injection (Vial) 5,000 UNIT/ML VIAL 5000 UNIT SC ×2 (11:02→20:32)
[2023-11-04] MEDS: Metoprolol Tartrate 25 MG Tablet PO ×2 (11:03→20:32)
[2023-11-04] MEDS: rifAXIMin 550 MG Tablet PO ×2 (11:03→20:33)
[2023-11-04] MEDS: Allopurinol 100 MG Tablet PO (11:04)
[2023-11-04 15:17] LABS: Vitamin B12 525 pg/mL (211-911)
[2023-11-04] MEDS: Atorvastatin Calcium 40 MG Tablet PO (20:32)
[2023-11-04] MEDS: Mirtazapine 30 MG Tablet PO (20:34)
[2023-11-04 21:42] LABS: Anisocytosis 2+; Hypochromasia 1+; Red Cell Morphology N CYTIC NORMAL (NORM C&C)
[2023-11-05] VITALS (17 sets, daily range): BP systolic 91–146; BP diastolic 66–95; PULSE 98–132; RESP 16–20; TEMP 36.3–36.9; O2SAT 94–99; BMI 31.9
[2023-11-05] MEDS: Pantoprazole Sodium 40 MG in 0.9% Normal Saline (100mL MB+) 100 ML 330 MG IV ×2 (09:15→21:50)
--- NOTE | 2023-11-05 09:51 | CASEMGMT ---
Social Work Power of Hospital Sales Representative is on file at [facility]. Alejo Pinzon is POA and Kate Gallagher is the alternate. The document does have a healthcare provision as well. AHMET Hernandez
--- NOTE | 2023-11-05 10:08 | CASEMGMT ---
Social Work SW met with pt and introduced self and role of SW. Pt sitting in chair and speaking with SW. Pt not able to answer all questions appropriately. Phone call placed to pt's brother/POConner Dhillon. Alejo confirms pt has been living in the [facility] and plans to return there upon discharge. DC assistant department manager updated and to send clinicals to the [facility]. Green sheet placed on pt chart to facilitate a weekend discharge should pt be medically ready. Plan: Return to [facility], when medically ready AHMET Hernandez
--- NOTE | 2023-11-05 10:15 | CASEMGMT ---
Discharge Planning Updates sent to [facility] via [facility]. Requested weekend phone/fax. Awaiting response. Joanna Lee DC Planning Asst.
--- NOTE | 2023-11-05 10:56 | PRE.ANES_ITS ---
ASA Classification* ASA Classification ASA Classification: 3 Assessment & Plan Anesthesia* Anesthesia Assessment Anesthesia Assessment: Discussed sedation and/or anesthesia options, risks, benefits, and alternatives with patient/parents/legal guardian/POA. Questions invited. The patient/parents/legal guardian/POA seems to understand and agrees to proceed with anesthesia plan. Reviewed the physical assessment, medical history, allergy history and patient home medications list prior to surgery/procedure/anesthetic and documented any changes. Performed airway and anesthesia risk assessments. Anesthesia Type Anesthesia Type: MAC History Source History Obtained from:: Patient and Chart Anesthesia Focused Assessment* Temperature: 98.2 F Pulse Rate: 124 Blood Pressure: 132/95 Respiratory Rate: 20 Pulse Ox: 98 Oxygen Delivery Method: Room Air Airway Assessment Mouth opens: >3 cm Mallampati Score: IV Teeth Condition: Intact Neck Range of motion (ROM): Limited ROM (Somewhat decreased extension.) Focused Labs Anesthesia Preop lab: CBC WBC 6.0 K/mm3 (4.4-11.0) 11/04/23 09:46 RBC 3.77 M/mm3 (4.6-6.2) L 11/04/23 09:46 Hgb 7.9 g/dL (13.0-16.5) L 11/04/23 09:46 Hct 27.0 % (40-54) L 11/04/23 09:46 Plt Count 182 K/mm3 (150-450) 11/04/23 09:46 CHEMISTRY Potassium 3.9 mmol/L (3.5-5.1) 11/04/23 06:16 Sodium 143 mmol/L (136-145) 11/04/23 06:16 Magnesium 1.7 mg/dL (1.6-2.6) 07/25/23 23:38 Phosphorus 3.6 mg/dL (2.5-4.9) 01/15/23 07:52 BUN 26 mg/dL (7-18) H 11/04/23 06:16 Creatinine 1.71 mg/dL (0.70-1.30) H 11/04/23 06:16 Glucose 98 mg/dL (74-106) 11/04/23 06:16 POC Glucose 93 mg/dL (74-106) 01/28/23 16:38 TSH 1.50 uIU/mL (0.358-3.74) 07/26/23 05:01 COAG PT 22.6 SECONDS (11.7-14.9) H 11/03/23 13:00 Pre-Assessment Diagnosis/Proposed Procedure Planned Operative Procedure(s): EGD Anesthesia History 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 When Was Last Pacemaker Check QUESTION #4 FULL TEXT: You/Your Family Experience fever (hyperthermia) with Anesthesia Last Oral Intake Last Oral intake: Last Oral Intake NPO since Meds taken in AM with sips of water? 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 - oceanography teacher Female HX of Motion Sickness HX of N/V After Surgery Non-Smoker Duration of Surgery greater than 60 minutes Number of Risk Factors PONV Score Height & Weight Height & Weight: Anesthesia: Height & Weight Height 6 ft 11/03/23 17:26 Weight: 107.1 kg 11/05/23 03:38 Body Mass Index (BMI) 31.9 11/05/23 03:38 Respiratory Assessment Respiratory Assessment - oceanography teacher: Respiratory Tract Infection Hx - oceanography teacher Hx Respiratory Tract Infection STOP Sleep Apnea STOP Sleep Apnea - oceanography teacher: STOP Sleep Apnea - oceanography teacher Hx Hypertension Yes 11/04/23 10:29 Hx Sleep Apnea No 11/03/23 17:26 CPAP BIPAP Do you snore loudly (louder No 11/03/23 17:26 than talking or can be heard Do you often feel tired/ No 11/03/23 17:26 fatigued/ sleepy during daytime? Has anyone observed you stop No 11/03/23 17:26 breathing during sleep? STOP Results Negative 11/03/23 17:26 QUESTION #5 FULL TEXT : Do you snore loudly (louder than talking or can be heard through closed doors)? 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 Specify any problems Hx of Preganancy in last 3 N/A 11/03/23 17:26 Months Nurse Filling Out Transfusion [email or web address] 11/03/23 17:26 & Questions: Date: 11/03/23 11/03/23 17:26 Time: 17:43 11/03/23 17:26 Patient unable to answer at this time (ie. confused, unrespo /Reproduction History /Reproductive History - oceanography teacher: /Reproductive Hx- oceanography teacher Hx Now Gestational Age (in weeks): EDC: Hx Hx Para Hx Section SAB Active Medications Active Medications: Current Medications Generic Name Dose Route Start Last Admin Trade Name Freq PRN Reason Stop Dose Admin Acetaminophen 650 mg 11/03/23 17:26 Acetaminophen 325 Mg Tablet PO Q6H PRN PRN Pain 1-10 Or Fever >100.7 Albuterol Sulfate 2.5 mg 11/03/23 17:26 Albuterol 2.5 Mg/3 Ml Vial.Neb. INHALATION Q2H PRN PRN SOB &/OR WHEEZING Allopurinol 100 mg 11/04/23 10:00 11/04/23 11:04 Allopurinol 100 Mg Tablet PO 100 mg DAILY SERA Administration Atorvastatin Calcium 40 mg 11/03/23 22:00 11/04/23 20:32 Atorvastatin Calcium 40 Mg Tablet PO 40 mg QHS SERA Administration Diltiazem HCl 120 mg 11/04/23 10:00 11/04/23 11:01 Diltiazem Cd 120 Mg Capsule PO 120 mg DAILY SERA Administration Heparin Sodium (Porcine) 5,000 unit 11/03/23 22:00 11/04/23 20:32 Heparin Injection (Vial) 5,000 Unit/Ml Vial SC 5,000 unit Q12 SERA Administration Ceftriaxone Sodium 1 gm in 50 mls @ 100 mls/hr 11/04/23 10:00 11/04/23 11:25 Rocephin IV Infused Q24 SERA Infusion Pantoprazole Sodium 40 mg/ 110 mls @ 330 mls/hr 11/03/23 18:00 11/05/23 09:15 Sodium Chloride IV 330 mls/hr Q12 SERA Administration Sodium Chloride 250 mls @ 15 mls/hr 11/03/23 17:51 IV .[id number] PRN Additional IVPB Infusion Sodium Chloride 250 mls @ 15 mls/hr 11/03/23 17:51 IV .[id number] PRN Saline Flush Lactated Ringer's 1,000 mls @ 15 mls/hr 11/05/23 10:45 IV .Q48H SERA Lactulose 30 gm 11/03/23 18:00 11/04/23 20:31 Lactulose 20 Gm/30 Ml Udc PO 30 gm 4X/DAY SERA Administration Melatonin 3 mg 11/03/23 17:26 Melatonin 3 Mg Tablet PO QHS PRN PRN INSOMNIA Metoprolol Tartrate 25 mg 11/03/23 22:00 11/04/23 20:32 Metoprolol Tartrate 25 Mg Tablet PO 25 mg BID SERA Administration Protocol Mirtazapine 30 mg 11/03/23 22:00 11/04/23 20:34 Mirtazapine 30 Mg Tablet PO 30 mg QHS SERA Administration Mycophenolate Mofetil 500 mg 11/03/23 22:00 11/04/23 20:33 Mycophenolate Mofetil 250 Mg Capsule PO 500 mg BID SERA Administration Ondansetron HCl 4 mg 11/03/23 17:26 Ondansetron 4 Mg/2 Ml Vial IV Q8H PRN PRN NAUSEA/VOMITING Rifaximin 550 mg 11/03/23 22:00 11/04/23 20:33 Rifaximin 550 Mg Tablet PO 550 mg BID SERA Administration Senna/Docusate Sodium 2 tablet 11/03/23 17:26 Senna/Docusate Sodium 1 Tablet PO BID PRN PRN Constipation Sodium Chloride 10 - 40 ml 11/03/23 17:51 11/03/23 18:00 0.9% Saline Lock 10 Ml Syringe IV 10 ml UD PRN Administration SALINE FLUSH Tacrolimus 0.5 mg 11/03/23 22:00 11/04/23 20:33 Tacrolimus 0.5 Mg Capsule PO 0.5 mg BID SERA Administration [facility] Medical History (Updated 11/03/23 @ 17:50 by Doris Chung) Wears hearing aid in both ears Kidney disease Dialysis patient Anxiety and depression History of anemia History of chronic kidney disease History of deep vein thrombosis History of [place] (myocardial infarction) Myocardial infarct History of encephalopathy History of pulmonary embolism History of DVT (deep vein thrombosis) Severe protein-calorie malnutrition Anemia in chronic illness Neutropenia Bladder dysfunction Immunosuppressed status Chronic kidney disease, stage 3b Pancytopenia HTN (hypertension) Mild intellectual disability Urinary retention Vocal cord dysfunction Bronchitis Pulmonary embolism CKD (chronic kidney disease), stage III Neurogenic bladder disorder DVT (deep venous thrombosis) Congenital nystagmus Home Medications ?Medication ?Instructions ?Recorded ?Last Taken ?Type mycophenolate mofetil 500 mg tablet 500 mg PO BID TRANSPLANT 07/14/16 01/26/23 History ANTI-REJECTION multivitamin 1 tab PO DAILY SUPPLEMENT 02/13/22 01/26/23 History lactulose 20 gram/30 mL oral 45 ml PO 4X/DAY hepatic failure 06/13/22 01/26/23 History solution rifaximin 550 mg tablet (Xifaxan) 550 mg PO BID ANTIBIOTIC 07/16/22 01/26/23 History mirtazapine 30 mg tablet 30 mg PO QHS DEPRESSION 11/01/22 01/25/23 History diltiazem HCl 120 mg 120 mg PO DAILY BLOOD PRESSURE #30 01/01/23 01/26/23 Rx tablet,extended release 24 hr tabs (Cardizem LA) metoprolol tartrate 25 mg tablet 25 mg PO BID BLOOD PRESSURE #0 tabs 01/01/23 01/26/23 Rx tacrolimus 0.5 mg capsule, 0.5 mg PO BID TRANSPLANT 01/15/23 01/26/23 History immediate-release ANTI-REJECTION atorvastatin 40 mg tablet 40 mg PO QHS hld 07/25/23 Unknown History pantoprazole 40 mg tablet,delayed 40 mg PO DAILY gerd 07/25/23 Unknown History release aspirin 81 mg capsule 81 mg PO DAILY blood thinner 30 08/06/23 Unknown Rx days #30 caps rivaroxaban 20 mg tablet (Xarelto) 20 mg PO DAILY blood thinner 30 08/06/23 Unknown Rx days #30 tabs acetaminophen 325 mg tablet 650 mg PO Q4H PRN fever or pain 11/03/23 Unknown History allopurinol 100 mg tablet 100 mg PO DAILY URIC ACID LEVELS 11/03/23 Unknown History guaifenesin 100 mg/5 mL oral 200 mg PO Q4H PRN cough 11/03/23 Unknown History liquid (Adult Tussin Chest Congestion) magnesium hydroxide 400 mg/5 mL 30 ml PO DAILY PRN constipation 11/03/23 Unknown History oral suspension (Milk of Magnesia) Allergy/AdvReac Type Severity Reaction Status Date / Time red dye Allergy PT UNSURE Verified 11/03/23 12:27 OF REACTION Family History Mother Hypertension Father Diabetes Surgical History (Updated 08/14/23 @ 00:38 by Estelle Gupta) Renal transplant recipient Kidney transplant recipient S/P arteriovenous (AV) fistula creation Social History household members: none housing: skilled nursing Smoking Status: Never smoker second hand exposure: No alcohol intake: never substance use type: does not use caffeine: No Review of Systems (Anesthesia) ROS Narrative System reviewed and no additional complaints, except as documented.
[2023-11-05] MEDS: 0.9% Normal Saline (500mL Bag) 500 ML 15 ML IV (11:28)
--- NOTE | 2023-11-05 11:30 | EGD_PTH ---
PATIENT: ROOSEVELT GARCIA LOC: MS3 U#:[id number] AGE/SX: 58/M ROOM: [facility] RE11/03/[address]: Dr. Rayo Cartagena MD : 1965 BED: 1 DIS: 11/09/2023 SPEC #: [id number] RECD: 11/05/23 16:05 STATUS: DELL RE #: [id number] IAM: 11/05/23 11:[address]: Rahat Nicholas DEPT: SURGICAL PATHOLOGY RECD BY: Felice Ferguson ENTERED: 11/08/23 07:26 SP TYPE: EGD BIOPSY OT DR: MD Dr. Rayo Crawley MD Dr. Prakash Chand, MD Dr. Paul Nielsen, MD Dr. Paige Pierce, MD Tissues: A - Duodenum, NOS B - Gastric mucous membrane C - Esophagus, NOS Procedures: Special Stain Group I Surgery Specimen Level IV Alcian Blue/PAS (control) HEADER OPERATION: EGD PRE-OP DIAGNOSIS: Acute on chronic anemia, acute urinary tract infection, atrial fibrillation, chronic kidney disease, cirrhosis, history of kidney transplant TISSUE SUBMITTED: A- Duodenal ulcer biopsy, B- Gastric cardia biopsy, C- Distal esophagus biopsy MICROSCOPIC DIAGNOSIS A. Duodenal ulcer, biopsy: Fragments of duodenal mucosa with chronic inflammation. B. Gastric cardia, biopsy: Mild gastritis. See microscopic description and comment. C. Distal esophagus, biopsy: Fragments of gastroesophageal mucosa with moderate chronic inflammation and mild acute inflammation. Intestinal metaplasia (goblet cell metaplasia) not identified. See comment. GREGORIO/ 11/09/2023 COMMENT B. The results of immunohistochemistry for Helicobacter pylori will be reported separately ([id number]). C. Alcian blue/PAS stain with matched control is used in the evaluation of the specimen. This specimen predominantly consists of gastric mucosa. MICROSCOPIC DESCRIPTION Slides are reviewed. B. The specimen shows fragments of gastric mucosa with chronic inflammatory cell infiltrates in the lamina propria consisting of lymphocytes and plasma cells, consistent with mild chronic gastritis. GROSS DESCRIPTION A. Received in fixative is one container labeled with the patient's name and designated Duodenal ulcer. The specimen consists of multiple irregular fragments of light drummond soft tissue that in aggregate measure 1.0 x 0.4 x 0.1 cm. The specimen is totally submitted in one cassette. B. Received in fixative is one container labeled with the patient's name and designated Gastric cardia biopsy. The specimen consists of two irregular fragments of light drummond soft tissue that in aggregate measure 0.6 x 0.3 x 0.1 cm. The specimen is totally submitted in one cassette. C. Received in fixative is one container labeled with the patient's name and designated Distal esophagus biopsy. The specimen consists of two irregular fragments of light drummond soft tissue that in aggregate measure 0.8 x 0.4 x 0.1 cm. The specimen is totally submitted in one cassette. Jenny 11/08/2023 TC:3 CPT:[id number]
--- NOTE | 2023-11-05 11:30 | IMM_PTH ---
PATIENT: ROOSEVELT GARCIA LOC: MS3 U#:[id number] AGE/SX: 58/M ROOM: [facility] RE11/03/[address]: Dr. Rayo Cartagena MD : 1965 BED: 1 DIS: 11/09/2023 SPEC #: [id number] RECD: 11/08/23 08:32 STATUS: SOUT REQ #: [id number] IAM: 11/05/23 11:[address]: Rahat Nicholas DEPT: IMMUNOHISTOCHEMISTRY RECD BY: Ben Ignacio ENTERED: 11/08/23 08:32 SP TYPE: IMMUNO OTHR DR: MD Dr. Rayo Crawley MD Dr. Prakash Chand, MD Dr. Paul Nielsen, MD Dr. Paige Pierce, MD Tissues: B - Gastric mucous membrane Procedures: H Pylori (initial) Comments: @ Ordering doctor for H.PYLORI edited from to @ by SETH at 11/08/23 33 @ Submitting doctor edited from to @ by SETH at 11/08/2333 PHYSICIAN & INSTITUTION [place] [id number] SPECIMEN INFORMATION: Tissue Source: B- Gastric cardia biopsy Clinical Info: Acute on chronic anemia, acute urinary tract infection, atrial fibrillation, chronic kidney disease, cirrhosis, history of kidney transplant Specimen Number: [id number] CPT code: 95406 METHODOLOGY: Deparaffinized sections of prefer/formalin-fixed tissue or PAP/DQ stained slides are incubated with monoclonal/polyclonal antibodies/oligonucleotide probes. Localization is made via biotin free immunoperoxidase method. Appropriate controls are performed and reacted as expected. Results on target cell population are indicated in the following table: RESULTS: ANTIBODY / CLONE RESULT Block B H Pylori (polyclonal) negative These tests were developed and their performance characteristics determined by [facility]. They may not have been cleared or approved by the U.S. Food and Drug Administration. The FDA has determined that such clearance or approval is not necessary. The above immunohistochemical/dualISH markers are ordered and reviewed by the Pathologist. INTERPRETATION: B. Gastric cardia, biopsy: Negative for Helicobacter pylori organisms. GREGORIO/ 11/09/2023
--- NOTE | 2023-11-05 12:13 | CON.PCM.GI_ITS ---
HPI Consult Data Date of Consult: 11/05/23 HPI Narrative Reason for Consultation: Anemia HPI Narrative: ROOSEVELT GARCIA, is a 58-year-old male history of CKD with renal transplant, GERD, DVT/PE, paroxysmal atrial fibrillation, cirrhosis with esophageal varices, neurogenic bladder, congenital nystagmus, mild intellectual disability, hypertension who presented to [facility] ED 11/03/2023 from correction for low hemoglobin. Has been dizzy and he was sent in per correction for this. Denies any noted bleeding. In the ED hemoglobin 7.9 with most recent check 3 months ago at 12.2. Additionally patient had UA suggestive of UTI. I was contacted and given his varices, felt he may need EGD and recommended hospital admission. Hospitalist contacted for admission. Patient evaluated at bedside, awake and alert, reports he has been having some swelling in his legs and some possible abdominal pain also reports he has been having a dizzy feeling, did not report any other localized symptoms. [facility] Medical History (Updated 11/03/23 @ 17:50 by Doris Chung) Wears hearing aid in both ears Kidney disease Dialysis patient Anxiety and depression History of anemia History of chronic kidney disease History of deep vein thrombosis History of [place] (myocardial infarction) Myocardial infarct History of encephalopathy History of pulmonary embolism History of DVT (deep vein thrombosis) Severe protein-calorie malnutrition Anemia in chronic illness Neutropenia Bladder dysfunction Immunosuppressed status Chronic kidney disease, stage 3b Pancytopenia HTN (hypertension) Mild intellectual disability Urinary retention Vocal cord dysfunction Bronchitis Pulmonary embolism CKD (chronic kidney disease), stage III Neurogenic bladder disorder DVT (deep venous thrombosis) Congenital nystagmus Home Medications ?Medication ?Instructions ?Recorded ?Last Taken ?Type mycophenolate mofetil 500 mg tablet 500 mg PO BID TRANSPLANT 07/14/16 01/26/23 History ANTI-REJECTION multivitamin 1 tab PO DAILY SUPPLEMENT 02/13/22 01/26/23 History lactulose 20 gram/30 mL oral 45 ml PO 4X/DAY hepatic failure 06/13/22 01/26/23 History solution rifaximin 550 mg tablet (Xifaxan) 550 mg PO BID ANTIBIOTIC 07/16/22 01/26/23 History mirtazapine 30 mg tablet 30 mg PO QHS DEPRESSION 11/01/22 01/25/23 History diltiazem HCl 120 mg 120 mg PO DAILY BLOOD PRESSURE #30 01/01/23 01/26/23 Rx tablet,extended release 24 hr tabs (Cardizem LA) metoprolol tartrate 25 mg tablet 25 mg PO BID BLOOD PRESSURE #0 tabs 01/01/23 01/26/23 Rx tacrolimus 0.5 mg capsule, 0.5 mg PO BID TRANSPLANT 01/15/23 01/26/23 History immediate-release ANTI-REJECTION atorvastatin 40 mg tablet 40 mg PO QHS hld 07/25/23 Unknown History pantoprazole 40 mg tablet,delayed 40 mg PO DAILY gerd 07/25/23 Unknown History release aspirin 81 mg capsule 81 mg PO DAILY blood thinner 30 08/06/23 Unknown Rx days #30 caps rivaroxaban 20 mg tablet (Xarelto) 20 mg PO DAILY blood thinner 30 08/06/23 Unknown Rx days #30 tabs acetaminophen 325 mg tablet 650 mg PO Q4H PRN fever or pain 11/03/23 Unknown History allopurinol 100 mg tablet 100 mg PO DAILY URIC ACID LEVELS 11/03/23 Unknown History guaifenesin 100 mg/5 mL oral 200 mg PO Q4H PRN cough 11/03/23 Unknown History liquid (Adult Tussin Chest Congestion) magnesium hydroxide 400 mg/5 mL 30 ml PO DAILY PRN constipation 11/03/23 Unknown History oral suspension (Milk of Magnesia) Allergy/AdvReac Type Severity Reaction Status Date / Time red dye Allergy Unknown unknown Verified 11/05/23 11:41 Family History Mother Hypertension Father Diabetes Surgical History (Updated 08/14/23 @ 00:38 by Background Alonso) Renal transplant recipient Kidney transplant recipient S/P arteriovenous (AV) fistula creation Social History household members: none housing: correction Smoking Status: Never smoker second hand exposure: No alcohol intake: never substance use type: does not use caffeine: No ROS ROS Narrative ROS positive for some abdominal discomfort, swelling in legs, dizzy feeling, no other focal complaints per patient report Physical Exam Narrative General: Alert, answering questions appropriately, no apparent distress HEENT: Atraumatic, Eyes: Patient with congenital nystagmus noted Neck: Supple Respiratory: Clear to auscultation bilaterally, normal respiratory effort Cardiovascular: Slightly tachycardic GI: Slightly firm but no localized tenderness, no rebound, guarding, rigidity Extremities: No edema, does have fistula on right arm going length of arm Musculoskeletal: Moving all extremities Neuro: No overt focal neurological deficits Skin: No rashes appreciated Psych: Cooperative Lab / Micro Data 11/04/23 09:46 11/04/23 06:16 Labs: Laboratory Results - last 24 hr 11/03/23 14:07: B-Natriuretic Peptide 368.0 H 11/03/23 18:05: Vitamin B12 525 11/04/23 06:16: RBC Morphology N CYTIC, Hypochromasia 1+, Anisocytosis 2+ Micro: Microbiology 11/03/23 19:00 Urine Catheter - Catheter Urine Culture - Preliminary Gram negative korey Assessment & Plan Assessment/Plan (1) DVT (deep venous thrombosis): QUALIFIERS: DVT location: lower extremity Affected thrombotic vein of extremity: femoral Laterality: right Chronicity: acute Qualified Code(s): I82.411 - Acute embolism and thrombosis of right femoral vein (2) Hematuria: PLAN: Plan Patient is a 58-year-old male who presented to [facility] with worsening fatigue and weakness. Patient was recently admitted for chest pain and shortness of breath. He has a history of DVT and PE was on a 3-month course of Xarelto. Vascular surgery evaluated the patient and thought it was okay to continue on the Xarelto without placing IVC filter. He does have a history of chronic liver disease. Patient hospitalized in December 2022 for NSTEMI type II suspected to be secondary to PE versus A-fib with RVR. Started on Eliquis at that time, was discharged from that hospitalization on 01/01/2023. Presented again to the hospital on 01/15 with worsening abdominal pain and was found to have decreasing hemoglobin. Hemoglobin decreased down to 6.8 and patient required 2 units packed red blood cells at that time. He was suspected the patient a GI bleed and Eliquis was discontinued. ? Hemoglobin had been stable around 10-11 during hospitalization. His last upper endoscopy did show varices in resulting in ischemic damage with history of cirrhosis. Since his hemoglobin is drifting down history of cirrhosis undergoing upper endoscopy. He does have microcytic indices which does not correlate with cirrhosis which could be secondary to underlying occult GI bleeding which will require also colonoscopy. It depends on what we find on his upper endoscopy. Charges/Coding Visit Charges Inpatient E&M: 63560 Init Hosp L3
--- NOTE | 2023-11-05 12:40 | PCM.POST.ANE ---
Anesthesia: Postop Eval I Current Vital Signs Temperature: 98.4 F Pulse Rate: 121 Blood Pressure: 91/69 Respiratory Rate: 20 Pulse Ox: 96 Oxygen Delivery Method: Room Air Assessment Airway patent: Yes Spontaneous unlabored respirations: Yes Mental status: Awake and Calm nausea: No Vomiting: No Anesthesia Complication: No Fluid Hydration Crystalloid volume administer (ml): 200 Total IV fluid infused: 200 Progress Note Anesthesia document: Postop Eval 1 completed: Yes
--- NOTE | 2023-11-05 12:47 | OP.EGD_ITS ---
Patient Name: Skyler Pinzon Procedure Date: 11/05/2023 11:37 AM Date of : 1965 Age: 58 Procedure: Upper GI endoscopy Indications: Iron deficiency anemia Providers: Rahat Nicholas DO Medicines: Monitored Anesthesia Care Patient Profile: This is a 58 year old male. Refer to note in patient chart for documentation of history and physical. Patient has symptoms. Complications: No immediate complications. Procedure: Pre-Anesthesia Assessment: - Prior to the procedure, a History and Physical was performed, and patient medications and allergies were reviewed. The patient is competent. The risks and benefits of the procedure and the sedation options and risks were discussed with the patient. All questions were answered and informed consent was obtained. Patient identification and proposed procedure were verified by the physician. Mental Status Examination: normal. Airway Examination: normal oropharyngeal airway and neck mobility. Respiratory Examination: clear to auscultation. CV Examination: normal. Prophylactic Antibiotics: The patient does not require prophylactic antibiotics. Prior Anticoagulants: The patient has taken no anticoagulant or antiplatelet agents except for NSAID medication. ASA Grade Assessment: II - A patient with mild systemic disease. After reviewing the risks and benefits, the patient was deemed in satisfactory condition to undergo the procedure. The anesthesia plan was to use monitored anesthesia care (MAC). Immediately prior to administration of medications, the patient was re-assessed for adequacy to receive sedatives. The heart rate, respiratory rate, oxygen saturations, blood pressure, adequacy of pulmonary ventilation, and response to care were monitored throughout the procedure. The physical status of the patient was re-assessed after the procedure. After obtaining informed consent, the endoscope was passed under direct vision. Throughout the procedure, the patient's blood pressure, pulse, and oxygen saturations were monitored continuously. The was introduced through the mouth, and advanced to the second part of duodenum. The upper GI endoscopy was accomplished without difficulty. The patient tolerated the procedure well. Scope In: 12:26:05 PM Scope Out: 12:33:31 PM Total Procedure Duration Time 0 hours 7 minutes 26 seconds Findings: There were esophageal mucosal changes consistent with short-segment Bryant's esophagus present in the lower third of the esophagus. The maximum longitudinal extent of these mucosal changes was 3 cm in length. Mucosa was biopsied with a cold forceps for histology in a targeted manner at intervals of 1 cm in the lower third of the esophagus. One specimen bottle was sent to pathology. Verification of patient identification for the specimen was done. Estimated blood loss was minimal. Mild portal hypertensive gastropathy was found in the cardia, in the gastric fundus and in the gastric body. One non-bleeding superficial gastric ulcer with no stigmata of bleeding was found in the gastric antrum. The lesion was 3 mm in largest dimension. One non-bleeding cratered duodenal ulcer with no stigmata of bleeding was found in the duodenal bulb. The lesion was 6 mm in largest dimension. Biopsies were taken with a cold forceps for histology. Verification of patient identification for the specimen was done. Estimated blood loss was minimal. Impression: - Esophageal mucosal changes consistent with short-segment Bryant's esophagus. Biopsied. - Portal hypertensive gastropathy. - Non-bleeding gastric ulcer with no stigmata of bleeding. - Non-bleeding duodenal ulcer with no stigmata of bleeding. Biopsied. Recommendation: - [facility]. - Resume previous diet. - Continue present medications. - Await pathology results. Procedure Code(s): --- Professional --- 47213, Esophagogastroduodenoscopy, flexible, transoral; with biopsy, single or multiple CPT copyright 2021 [employer]. All rights reserved. The codes documented in this report are preliminary and upon cpc coder review may be revised to meet current compliance requirements. Rahat Nicholas DO 11/05/2023 12:46:37 PM This report has been signed electronically. Number of Addenda: 0 Note Initiated On: 11/05/2023 11:37 AM
--- NOTE | 2023-11-05 12:47 | OP.CCLET_ITS ---
11/05/2023 Mike Bella MD [address] [id number] Re : Upper GI endoscopy procedure for Skyler Pinzon Dear Dr. Bella This procedure was performed on Sunday, November 05, 2023. My impressions and recommendations are as follows: Impressions : - Esophageal mucosal changes consistent with short-segment Bryant's esophagus. Biopsied. - Portal hypertensive gastropathy. - Non-bleeding gastric ulcer with no stigmata of bleeding. - Non-bleeding duodenal ulcer with no stigmata of bleeding. Biopsied. Recommendations : - [facility]. - Resume previous diet. - Continue present medications. - Await pathology results. My findings are described in the full procedure note, which is enclosed. If I can be of further assistance, please feel free to contact me at . Sincerely, Rahat Nicholas, 11/05/2023 12:46:37 PM This report has been signed electronically.
--- NOTE | 2023-11-05 12:56 | PN.HOSP_ITS ---
Reason for Visit Reason for Visit: Diagnoses Anemia, unspecified (11/03/23) Paroxysmal atrial fibrillation (11/03/23) Acute embolism and thrombosis of right femoral vein (11/03/23) Other cirrhosis of liver (11/03/23) Chronic kidney disease, stage 3a (11/03/23) Urinary tract infection, site not specified (11/03/23) Hematuria, unspecified (11/03/23) Kidney transplant status (11/03/23) Subjective Subjective No major concerns overnight, hemoglobin has been stable, no episodes of bleeding. Objective Data Objective Data Vital Signs: Vital Signs Temp Pulse Resp BP Pulse Ox O2 Del Method 98.4 F 121 H 20 H 91/69 96 Room Air 11/05/23 12:48 11/05/23 12:48 11/05/23 12:48 11/05/23 12:48 11/05/23 12:48 11/05/23 12:48 Oxygen Delivery Method Room Air Weight: 236 lb 1.841 oz Body Mass Index (BMI) 31.9 Intake & Output: Intake and Output for Last 24 Hours 11/03/23 11/04/23 11/05/23 23:59 23:59 23:59 Intake Total 160 / 160 1870 / 1870 Output Total 520 / 520 1500 / 1500 550 / 550 Balance -360 / -360 370 / 370 -550 / -550 Lab / Micro Data 11/04/23 09:46 11/04/23 06:16 Labs: Laboratory Results - last 24 hr 11/03/23 18:05: Vitamin B12 525 11/04/23 06:16: RBC Morphology N CYTIC, Hypochromasia 1+, Anisocytosis 2+ Micro: Microbiology 11/03/23 19:00 Urine Catheter - Catheter Urine Culture - Preliminary Gram negative korey 11/03/23 13:00 Stool Stool Occult Blood (NYA) - Final Physical Exam Const alert and oriented x3 HEENT head/scalp atraumatic Mouth: oral and palatal mucosa normal Eyes PERRL Neck no lymphadenopathy Resp normal respiratory effort Cardio regular rate and regular rhythm Neuro oriented x3 Assessment & Plan Assessment/Plan (1) Acute on chronic anemia: PLAN: Plan 58-year-old male is admitted to the [facility] floor for concerns regarding acute on chronic anemia in the setting of prior cirrhosis with portal hypertension, ESRD s/p renal transplant, A-fib on chronic anticoagulation with Xarelto. #Acute on chronic anemia #Iron deficiency anemia Serum iron 33, TIBC 379 with ferritin of 6. -Hemoglobin is 7.7, stable from 8.1 -No features of acute bleeding, hemodynamically stable at this time. -Gastroenterology consult given the chronic anticoagulation status -EGD was done today, no source of bleeding was noted. Will discuss with GI regarding need for colonoscopy given the iron deficiency anemia, need for chronic anticoagulation and age. -FOBT negative however given history it was recommended by GI patient be admitted and considered for endoscopy -Hold xeralto #UTI and history of neurogenic bladder -UA suggestive of UTI -Urine cultures showing gram negative rods -Patient has neurogenic bladder, will place Ga as patient previously had to consistently self cath -I's and O's -IV ceftriaxone continue -IV fluids #GERD -Continue PPI #Hx pafib/dvt/PE -Holding Xarelto and aspirin, resume once able -Continue Cardizem and bb -Resume Xarelto after completion of the anemia evaluation #Hx mild intellectual disability/nystagmus -Supportive care # History of cirrhosis -Continue lactulose and rifaximin # CKD stage IIIb with history of renal transplant -Continue home rejection medication -Will be receiving IVF #DVT ppx: Heparin subcu
--- NOTE | 2023-11-05 13:15 | PCM.POSTANE2 ---
Anesthesia Postop Eval I Sum Postop Eval Completion status Anesthesia document: Postop Eval 1 completed: Yes Anesthesia Postop Eval I Summary Anesthesia Postop Eval I Summary: Anesthesia Postop Eval I: Assessment Summary Airway patent Yes 11/05/23 12:48 [email or web address] Spontaneous unlabored Yes 11/05/23 12:48 [email or web address] respirations Mental status Awake,Calm 11/05/23 12:48 [email or web address] nausea No 11/05/23 12:48 [email or web address] Vomiting No 11/05/23 12:48 [email or web address] Anesthesia Postop Eval I: Fluid Summary Crystalloid volume administer 200 11/05/23 12:48 [email or web address] (ml) Colloids volume administered ( ml) Blood Product volume administered (ml) Total IV fluid infused 200 11/05/23 12:48 [email or web address] Anesthesia Postop Eval I: Summary Notes Anesthesia Complication No 11/05/23 12:48 [email or web address] Anesthesia Complication Comment: Post-operative progress note Anesthesia: Postop Eval II Evaluation Mental status: Awake and Calm Pain Level: 0 nausea: No Vomiting: No Complications Anesthesia Complication: No
[2023-11-05 13:35] LABS: Absolute Neutrophil Count 2.9 X10^3/uL (2.0-7.7); Basophil# 0.04 X10^3/uL; Basophil% 0.8 % (0-1); Eosinophil# 0.25 X10^3/uL; Eosinophils% 5.1 % (0-5); Hematocrit 28.1 % (40-54); Hemoglobin 8.1 g/dL (13.0-16.5); Lymphocyte % 16.5 % (19-41); Mean Corp Hgb Conc 28.8 g/dL (32-36); Mean Corpuscular Hgb 20.8 pg (27.0-32.0); Mean Corpuscular Volume 72.2 fL (80-94); Mean Platelet Vol. 10.8 fl (6.2-12.0); Monocyte# 0.87 X10^3/uL; Monocyte% 17.9 % (0-10); NRBC Flagged by Analyzer 0 % (0-5); Neutrophil # 2.87 X10^3/uL (2.7-7.7); Neutrophil % 59.1 % (47-70); POSITIVE MORPHOLOGY YES; Platelet Count 228 K/mm3 (150-450); RBC Distribution Width CV 20.6 % (11.6-14.6); RBC Distribution Width SD 52.4 fl (35.1-43.9); Red Blood Count 3.89 M/mm3 (4.6-6.2); White Blood Count 4.9 K/mm3 (4.4-11.0)
[2023-11-05 13:52] LABS: ALB/GLOB Ratio 0.8 RATIO (0.9-2.4); AST(SGOT) 35 U/L (15-37); Alanine Aminotransfer ALT/SGPT 28 U/L (16-61); Albumin, Serum 3.1 g/dL (3.2-5.0); Alkaline Phosphatase 111 U/L (45-117); Anion Gap 10 (5-15); BUN 19 mg/dL (7-18); BUN/Creat Ratio 13.3 RATIO (10-20); Calcium,Total 8.2 mg/dL (8.5-10.1); Chloride 120 mmol/L (98-107); Creatinine, Serum 1.43 mg/dL (0.70-1.30); EST Glomerular Filtration Rate 54 mL/min (>60); Est Glom Filt Rate - Afr Amer 66 mL/min (>60); Estimated Creatinine Clearance 72.94 ml/min; Globulin 3.9 g/dL (2.2-4.2); Glucose 97 mg/dL (74-106); Potassium 3.6 mmol/L (3.5-5.1); Sodium Level 145 mmol/L (136-145)
[2023-11-05] MEDS: dilTIAZem CD 120 MG Capsule PO (13:54)
[2023-11-05] MEDS: rifAXIMin 550 MG Tablet PO ×2 (13:55→21:50)
[2023-11-05] MEDS: Tacrolimus 0.5 MG Capsule PO ×2 (13:55→22:02)
[2023-11-05] MEDS: Mycophenolate Mofetil 250 MG Capsule 500 MG PO ×2 (13:56→22:02)
[2023-11-05] MEDS: Allopurinol 100 MG Tablet PO (13:56)
[2023-11-05] MEDS: Lactulose 20 GM/30 ML UDC 30 GM PO ×3 (13:56→21:51)
[2023-11-05] MEDS: Heparin Injection (Vial) 5,000 UNIT/ML VIAL 5000 UNIT SC ×2 (13:57→21:50)
[2023-11-05] MEDS: Metoprolol Tartrate 25 MG Tablet PO ×2 (14:05→22:02)
[2023-11-05] MEDS: Ceftriaxone 1 GM/50 ML BAG IV (14:05)
[2023-11-05 14:10] LABS: Differential Indicated SCAN CRITERIA MET
[2023-11-05 14:27] LABS: Anisocytosis 2+
--- NOTE | 2023-11-05 15:15 | CHAPLAIN ---
Type of Pastoral Visit _x__ Initial Visit ___ Follow-up Visit ___ On-call Visit ___ General Patient Visit ___ Spiritual Assessment ___ Family Conference ___ Bereavement ___ Rapid Response ___ Code Blue ___ Other (describe below) Pastoral Care Referral From _x__ Patient ___ Family ___ Nurse ___ Physician ___ Invas Tech ___ Hoisting Laborer ___ Other (describe below) Sacrament/Intervention _x__ Active listening ___ Anointing ___ Denominational ___ Bereavement ___ Communion ___ Alma exploration ___ ___ Life review _x__ Prayer ___ Reconciliation ___ Sacrament of Sick _x__ Supportive presence ___ Wedding ___ Other (describe below) Pastoral Comments patient gives updates on his health and relates some good news about his living arrangements and procedures completed; pt asks for prayer and makes statements about 'life after this life'; these comments and questions are very common for this patient who has been seen in many admissions previously
[2023-11-05] MEDS: Atorvastatin Calcium 40 MG Tablet PO (21:50)
[2023-11-05] MEDS: 0.9% Saline Lock 10 ML Syringe IV (21:50)
[2023-11-05] MEDS: Mirtazapine 30 MG Tablet PO (21:50)
[2023-11-06] VITALS (8 sets, daily range): BP systolic 104–134; BP diastolic 62–94; PULSE 114–134; RESP 16–20; TEMP 36.3–37.1; O2SAT 94–99; BMI 31.9
--- NOTE | 2023-11-06 07:49 | PN.HOSP_ITS ---
Reason for Visit Reason for Visit: Diagnoses Anemia, unspecified (11/03/23) Paroxysmal atrial fibrillation (11/03/23) Acute embolism and thrombosis of right femoral vein (11/03/23) Other cirrhosis of liver (11/03/23) Chronic kidney disease, stage 3a (11/03/23) Urinary tract infection, site not specified (11/03/23) Hematuria, unspecified (11/03/23) Kidney transplant status (11/03/23) Objective Data Objective Data Vital Signs: Vital Signs Temp Pulse Resp BP Pulse Ox O2 Del Method 98.5 F 121 H 20 H 134/88 H 94 Room Air 11/06/23 03:09 11/06/23 03:09 11/06/23 03:09 11/06/23 03:09 11/06/23 03:09 11/06/23 03:09 Oxygen Delivery Method Room Air Weight: 235 lb 14.314 oz Body Mass Index (BMI) 31.9 Intake & Output: Intake and Output for Last 24 Hours 11/04/23 11/05/23 11/06/23 23:59 23:59 23:59 Intake Total 1870 / 1870 270 / 470 400 / 400 Output Total 1500 / 1500 900 / 1200 575 / 575 Balance 370 / 370 -630 / -730 -175 / -175 Lab / Micro Data 11/05/23 13:20 11/05/23 13:20 Labs: Laboratory Results - last 24 hr 11/05/23 13:20: WBC 4.9, RBC 3.89 L, Hgb 8.1 L, Hct 28.1 L, MCV 72.2 L, MCH 20.8 L, MCHC 28.8 L, RDW Std Deviation 52.4 H, RDW Coeff of Anil 20.6 H, Plt Count 228, MPV 10.8, Immature Gran % (Auto) 0.600, Neut % (Auto) 59.1, Lymph % (Auto) 16.5 L, [place] % (Auto) 17.9 H, Eos % (Auto) 5.1 H, Baso % (Auto) 0.8, Absolute Neuts (auto) 2.9, Absolute Lymphs (auto) 0.80 L, Nucleated RBC % 0, Anisocytosis 2+, Sodium 145, Potassium 3.6, Chloride 120 H, Carbon Dioxide 15.0 L, Anion Gap 10, BUN 19 H, Creatinine 1.43 H, Estim Creat Clear Calc 72.94, Est GFR (MDRD) Af Amer 66, Est GFR (MDRD) Non-Af 54 L, BUN/Creatinine Ratio 13.3, Glucose 97, C alcium 8.2 L, Total Bilirubin 2.20 H, AST 35, ALT 28, Alkaline Phosphatase 111, Total Protein 7.0, Albumin 3.1 L, Globulin 3.9, Albumin/Globulin Ratio 0.8 L Micro: Microbiology 11/03/23 19:00 Urine Catheter - Catheter Urine Culture - Preliminary Gram negative korey 11/03/23 13:00 Stool Stool Occult Blood (NYA) - Final Physical Exam Narrative General: Alert, Oriented x3, Cooperative HEENT: Hard of hearing both ears. Speech chronic, not clear. Atraumatic, PERRLA, EOMI, Normocephalic Oral: No Gingival or Mucosal Lesions/ Ulcerations Neck: Supple, No JVD, Negative Carotid Bruits Chest wall/Lungs: Air entry diminished in bilateral lung bases. No crepitation/rhonchi Cardiovascular: Irregular tachycardia, Normal S1, Normal S2, no murmur Abdomen: Bowel Sounds Present, Soft, Non Tender, mild distended abdomen : No dysuria. No renal angle tenderness. No suprapubic tenderness. Extremities: Right arm old AV fistula. Edema of lower extremities, Capillary Refill Less than 3 Seconds Skin: No rashes, No breakdown Musculoskeletal: No Tenderness to Palpation of Joints or Extremities Neurological: Cranial nerves II-XII grossly intact, DTR 2+/4. No acute focal neurological deficit. Psych/Mental Status: Flat affect Assessment & Plan Assessment/Plan (1) Acute on chronic anemia: PLAN: Plan 58-year-old male is admitted to the [facility] floor for concerns regarding acute on chronic anemia in the setting of prior cirrhosis with portal hypertension, ESRD s/p renal transplant, A-fib on chronic anticoagulation with Xarelto. #Acute on chronic anemia #Iron deficiency anemia Serum iron 33, TIBC 379 with ferritin of 6. -Hemoglobin is 7.7, stable from 8.1 -No features of acute bleeding, hemodynamically stable at this time. -Gastroenterology consult given the chronic anticoagulation status -EGD was done today, no source of bleeding was noted. -FOBT negative however given history it was recommended by GI patient be admitted and considered for endoscopy -Hold xeralto Plan for colonoscopy on Wednesday. EGD 11/05/2023 Impressions : - Esophageal mucosal changes consistent with short-segment Bryant's esophagus. Biopsied. - Portal hypertensive gastropathy. - Non-bleeding gastric ulcer with no stigmata of bleeding. - Non-bleeding duodenal ulcer with no stigmata of bleeding. Biopsied. #UTI and history of neurogenic bladder -UA suggestive of UTI -Urine cultures showing gram negative rods -Patient has neurogenic bladder, will place Ga as patient previously had to consistently self cath -I's and O's -IV ceftriaxone continue Discontinue IV fluid. #GERD -Continue PPI #Hx pafib/dvt/PE -Holding Xarelto and aspirin, resume once able -Continue Cardizem and bb -Resume Xarelto after completion of the anemia evaluation #Hx mild intellectual disability/nystagmus -Supportive care # History of cirrhosis -Continue lactulose and rifaximin # CKD stage IIIb with history of renal transplant -Continue home rejection medication IV fluid discontinued #DVT ppx: Heparin subcu Charges/Coding Visit Charges Inpatient E&M: 87571 Subs Hosp L2
[2023-11-06] MEDS: Metoprolol Tartrate 25 MG Tablet PO ×2 (08:03→21:09)
[2023-11-06] MEDS: rifAXIMin 550 MG Tablet PO ×2 (08:04→21:09)
[2023-11-06] MEDS: dilTIAZem CD 120 MG Capsule PO (08:04)
[2023-11-06] MEDS: Tacrolimus 0.5 MG Capsule PO ×2 (08:04→21:07)
[2023-11-06] MEDS: Allopurinol 100 MG Tablet PO (08:04)
[2023-11-06] MEDS: Mycophenolate Mofetil 250 MG Capsule 500 MG PO ×2 (08:05→21:07)
[2023-11-06] MEDS: Lactulose 20 GM/30 ML UDC 30 GM PO ×3 (08:05→17:37)
[2023-11-06] MEDS: Heparin Injection (Vial) 5,000 UNIT/ML VIAL 5000 UNIT SC ×2 (08:07→21:08)
[2023-11-06] MEDS: Pantoprazole Sodium 40 MG in 0.9% Normal Saline (100mL MB+) 100 ML 330 MG IV ×2 (09:06→21:06)
[2023-11-06] MEDS: Ceftriaxone 1 GM/50 ML BAG IV (10:12)
[2023-11-06] MEDS: 0.9% Saline Lock 10 ML Syringe IV (21:06)
[2023-11-06] MEDS: Atorvastatin Calcium 40 MG Tablet PO (21:08)
[2023-11-06] MEDS: Mirtazapine 30 MG Tablet PO (21:09)
[2023-11-07 05:54] LABS: Absolute Lymphocyte Count 0.92 X10^3/uL (0.83-4.51); Absolute Neutrophil Count 2.2 X10^3/uL (2.0-7.7); Basophil# 0.04 X10^3/uL; Basophil% 0.9 % (0-1); Eosinophil# 0.27 X10^3/uL; Eosinophils% 6.4 % (0-5); Hematocrit 25.6 % (40-54); Hemoglobin 7.6 g/dL (13.0-16.5); Lymphocyte # 0.92 X10^3/ul (0.83-4.51); Lymphocyte % 21.7 % (19-41); Mean Corp Hgb Conc 29.7 g/dL (32-36); Mean Corpuscular Hgb 21.5 pg (27.0-32.0); Mean Corpuscular Volume 72.3 fL (80-94); Mean Platelet Vol. 9.7 fl (6.2-12.0); Monocyte# 0.79 X10^3/uL; Monocyte% 18.7 % (0-10); NRBC Flagged by Analyzer 0 % (0-5); Neutrophil % 52.1 % (47-70); POSITIVE MORPHOLOGY YES; Platelet Count 183 K/mm3 (150-450); RBC Distribution Width CV 20.5 % (11.6-14.6); Red Blood Count 3.54 M/mm3 (4.6-6.2); White Blood Count 4.2 K/mm3 (4.4-11.0)
[2023-11-07 06:01] LABS: Differential Indicated SCAN CRITERIA MET
[2023-11-07 06:27] LABS: Anion Gap 9 (5-15); BUN 18 mg/dL (7-18); BUN/Creat Ratio 12.3 RATIO (10-20); Chloride 120 mmol/L (98-107); Creatinine, Serum 1.46 mg/dL (0.70-1.30); EST Glomerular Filtration Rate 53 mL/min (>60); Est Glom Filt Rate - Afr Amer 64 mL/min (>60); Estimated Creatinine Clearance 71.41 ml/min; Glucose 94 mg/dL (74-106); Potassium 3.7 mmol/L (3.5-5.1); Sodium Level 145 mmol/L (136-145)
[2023-11-07 06:41] VITALS: BP 125/83; PULSE 104; RESP 16; TEMP 36.5; O2SAT 97
--- NOTE | 2023-11-07 07:31 | PCM.PN.HOSP ---
Reason for Visit Reason for Visit: Diagnoses Anemia, unspecified (11/03/23) Paroxysmal atrial fibrillation (11/03/23) Acute embolism and thrombosis of right femoral vein (11/03/23) Other cirrhosis of liver (11/03/23) Chronic kidney disease, stage 3a (11/03/23) Urinary tract infection, site not specified (11/03/23) Hematuria, unspecified (11/03/23) Kidney transplant status (11/03/23) Objective Data Objective Data Vital Signs: Vital Signs Temp Pulse Resp BP Pulse Ox O2 Del Method 97.7 F L 104 H 16 125/83 H 97 Room Air 11/07/23 06:41 11/07/23 06:41 11/07/23 06:41 11/07/23 06:41 11/07/23 06:41 11/07/23 06:41 Oxygen Delivery Method Room Air Weight: 235 lb 14.314 oz Body Mass Index (BMI) 31.9 Intake & Output: Intake and Output for Last 24 Hours 11/05/23 11/06/23 11/07/23 23:59 23:59 23:59 Intake Total 270 / 470 1844.5 / 1844.5 Output Total 900 / 1200 1075 / 1075 750 / 750 Balance -630 / -730 769.5 / 769.5 -750 / -750 Lab / Micro Data 11/07/23 05:05 11/07/23 05:05 Labs: Laboratory Results - last 24 hr 11/07/23 05:05: WBC 4.2 L, RBC 3.54 L, Hgb 7.6 L, Hct 25.6 L, MCV 72.3 L, MCH 21.5 L, MCHC 29.7 L, RDW Std Deviation 53.0 H, RDW Coeff of Anil 20.5 H, Plt Count 183, MPV 9.7, Immature Gran % (Auto) 0.200, Neut % (Auto) 52.1, Lymph % (Auto) 21.7, [place] % (Auto) 18.7 H, Eos % (Auto) 6.4 H, Baso % (Auto) 0.9, Absolute Neuts (auto) 2.2, Absolute Lymphs (auto) 0.92, Nucleated RBC % 0, Sodium 145, Potassium 3.7, Chloride 120 H, Carbon Dioxide 16.0 L, Anion Gap 9, BUN 18, Creatinine 1.46 H, Estim Creat Clear Calc 71.41, Est GFR (MDRD) Af Amer 64, Est GFR (MDRD) Non-Af 53 L, BUN/Creatinine Ratio 12.3, Glucose 94, Calcium 8.0 L Micro: Microbiology 11/03/23 19:00 Urine Catheter - Catheter Urine Culture - Preliminary GNR lactose fitness club manager 11/03/23 13:00 Stool Stool Occult Blood (NYA) - Final Physical Exam Narrative Patient complain that he has upper abdomen tenderness. I felt distention. No fever. Abdominal x-ray ordered. Patient having diarrhea loose 3 times yesterday and he is on lactulose therefore held. General: Alert, Oriented x3, Cooperative HEENT: Severe hearing impairment both ears, uses hearing aid Speech chronic, not clear. Atraumatic, PERRLA, EOMI, Normocephalic Oral: No Gingival or Mucosal Lesions/ Ulcerations Neck: Supple, No JVD, Negative Carotid Bruits Chest wall/Lungs: Air entry diminished in bilateral lung bases. No crepitation/rhonchi Cardiovascular: Irregular tachycardia, Normal S1, Normal S2, no murmur Abdomen: Bowel Sounds hyperactive, Soft, mild upper abdomen distended and tender. : No dysuria. No renal angle tenderness. No suprapubic tenderness. Extremities: Right arm old AV fistula. Edema of lower extremities, Capillary Refill Less than 3 Seconds Skin: No rashes, No breakdown Musculoskeletal: No Tenderness to Palpation of Joints or Extremities Neurological: Cranial nerves II-XII grossly intact, DTR 2+/4. No acute focal neurological deficit. Psych/Mental Status: Flat affect Assessment & Plan Assessment/Plan (1) Acute on chronic anemia: PLAN: Plan 58-year-old male is admitted to the [facility] [place] floor for concerns regarding acute on chronic anemia in the setting of prior cirrhosis with portal hypertension, ESRD s/p renal transplant, A-fib on chronic anticoagulation with Xarelto. #Acute on chronic anemia #Iron deficiency anemia Serum iron 33, TIBC 379 with ferritin of 6. -Hemoglobin is 7.7, stable from 8.1 -No features of acute bleeding, hemodynamically stable at this time. -Gastroenterology consult given the chronic anticoagulation status -EGD was done today, no source of bleeding was noted. -FOBT negative however given history it was recommended by GI patient be admitted and considered for endoscopy -Hold xeralto 11/06:Plan for colonoscopy on Wednesday. EGD 11/05/2023 Impressions : - Esophageal mucosal changes consistent with short-segment Bryant's esophagus. Biopsied. - Portal hypertensive gastropathy. - Non-bleeding gastric ulcer with no stigmata of bleeding. - Non-bleeding duodenal ulcer with no stigmata of bleeding. Biopsied. Mild upper abdomen tenderness and distention due to small and large bowel ileus: Abdominal x-ray was done shows multiple nondistended air-fluid level in small and large bowel loops consistent with ileus. No free air. Most likely due to lactulose which is held. Enteric pathogen panel ordered. Will keep patient n.p.o. today. IV fluid Ringer lactate ordered. # history of neurogenic bladder. UTI ruled out -UA abnormal -Urine cultures showing gram negative rods -Patient has neurogenic bladder, will place Ga as patient previously had to consistently self cath -I's and O's -IV ceftriaxone continue 11/06 from urine culture shows Klebsiella pneumoniae less than 1000, not in pathogenic range therefore UTI ruled out. IV antibiotic discontinued #GERD -Continue PPI #Hx pafib/dvt/PE -Holding Xarelto and aspirin, resume once able -Continue Cardizem and bb -Resume Xarelto after completion of the anemia evaluation #Hx mild intellectual disability/nystagmus -Supportive care # History of cirrhosis -Continue lactulose and rifaximin # CKD stage IIIb with history of renal transplant -Continue home rejection medication 11/06: Creatinine profile shows improvement in creatinine from 1.92- 1.46 #DVT ppx: Heparin subcu Charges/Coding Visit Charges Inpatient E&M: 91278 Subs Hosp L2
[2023-11-07 07:36] VITALS: BP 133/88; PULSE 112; RESP 20; TEMP 37.1; O2SAT 98
[2023-11-07 07:49] VITALS: PULSE 112
[2023-11-07] MEDS: Metoprolol Tartrate 25 MG Tablet PO ×2 (07:49→20:57)
[2023-11-07] MEDS: Mycophenolate Mofetil 250 MG Capsule 500 MG PO ×2 (07:50→20:56)
[2023-11-07] MEDS: dilTIAZem CD 120 MG Capsule PO (07:50)
[2023-11-07] MEDS: Heparin Injection (Vial) 5,000 UNIT/ML VIAL 5000 UNIT SC ×2 (07:55→20:56)
[2023-11-07] MEDS: Lactulose 20 GM/30 ML UDC 30 GM PO (07:57)
--- NOTE | 2023-11-07 08:38 | RAD_ITS ---
STUDY: X-RAY - ABDOMEN/PELVIS REASON FOR EXAM: Male, 58 years old. diarrhea, upper abd tenderness and distended TECHNIQUE: AP supine and upright views of the abdomen and pelvis. 5 total views obtained COMPARISON: None. FINDINGS: Normal visualized lung bases. Multiple nondistended air fluid levels noted in small and large bowel loops and a stairstepping pattern consistent with ileus. There is no demonstrated free abdominal air. The visualized liver, spleen and kidneys are grossly normal in size and morphology. Normal soft tissue structures. There are diffuse degenerative changes of the visualized lumbar spine, and pelvis. RAD/Abd Inc Decub and/or Erect IMPRESSION: Small and large bowel ileus Electronically Signed: Aime Luu MD at 10:31 EDT ,
[2023-11-07 09:38] LABS: Acanthocytes 1+; Anisocytosis 2+; Differential Comment SCANNED; Hypochromasia 1+; Macrocytosis 1+; Microcytosis 1+
[2023-11-07] MEDS: Pantoprazole Sodium 40 MG in 0.9% Normal Saline (100mL MB+) 100 ML 330 MG IV ×2 (10:44→20:55)
[2023-11-07] MEDS: 0.9% Saline Lock 10 ML Syringe IV ×2 (10:47→16:28)
[2023-11-07] MEDS: rifAXIMin 550 MG Tablet PO ×2 (10:48→20:58)
[2023-11-07] MEDS: Tacrolimus 0.5 MG Capsule PO ×2 (10:48→20:58)
[2023-11-07] MEDS: Allopurinol 100 MG Tablet PO (10:49)
[2023-11-07] MEDS: Lactated Ringers 1,000 ML 75 ML IV (11:15)
[2023-11-07 14:00] VITALS: BP 137/91; PULSE 88; RESP 18; TEMP 36.6; O2SAT 100
--- NOTE | 2023-11-07 15:46 | EX.PCM.PN.GI ---
Subjective Subjective Patient is doing well. He has not had any signs or symptoms of bleeding. Objective Data Objective Data Vital Signs: Vital Signs Temp Pulse Resp BP Pulse Ox O2 Del Method 97.8 F 88 18 137/91 H 100 Room Air 11/07/23 14:00 11/07/23 14:00 11/07/23 14:00 11/07/23 14:00 11/07/23 14:00 11/07/23 14:00 Oxygen Delivery Method Room Air Weight: 235 lb 14.314 oz Body Mass Index (BMI) 31.9 Intake & Output: Intake and Output for Last 24 Hours 11/05/23 11/06/23 11/07/23 23:59 23:59 23:59 Intake Total 270 / 470 1844.5 / 1844.5 710 / 710 Output Total 900 / 1200 1075 / 1075 750 / 750 Balance -630 / -730 769.5 / 769.5 -40 / -40 Lab / Micro Data 11/07/23 05:05 11/07/23 05:05 Labs: Laboratory Results - last 24 hr 11/07/23 05:05: WBC 4.2 L, RBC 3.54 L, Hgb 7.6 L, Hct 25.6 L, MCV 72.3 L, MCH 21.5 L, MCHC 29.7 L, RDW Std Deviation 53.0 H, RDW Coeff of Anil 20.5 H, Plt Count 183, MPV 9.7, Immature Gran % (Auto) 0.200, Neut % (Auto) 52.1, Lymph % (Auto) 21.7, [place] % (Auto) 18.7 H, Eos % (Auto) 6.4 H, Baso % (Auto) 0.9, Absolute Neuts (auto) 2.2, Absolute Lymphs (auto) 0.92, Nucleated RBC % 0, Differential Comment SCANNED, Hypochromasia 1+, Anisocytosis 2+, Microcytosis 1+, Macrocytosis 1+, Acanthocytes (Spur) 1+, Sodium 145, Potassium 3.7, Chloride 120 H, Carbon Dioxide 16.0 L, Anion Gap 9, BUN 18, Creatinine 1.46 H, Estim Creat Clear Calc 71.41, Est GFR (MDRD) Af Amer 64, Est GFR (MDRD) Non-Af 53 L, BUN/Creatinine Ratio 12.3, Glucose 94, Calcium 8.0 L Micro: Microbiology 11/07/23 11:55 Stool Enteric Bacteriology - Final 11/07/23 11:55 Stool Stool Lactoferrin - Final 11/07/23 11:55 Stool Stool Occult Blood (NYA) - Final 11/03/23 19:00 Urine Catheter - Catheter Urine Culture - Final Klebsiella pneumoniae sp pneum 11/03/23 13:00 Stool Stool Occult Blood (NYA) - Final Radiography Diagnostic Testing: Radiology Impression Abdomen X-Ray 11/07/23 08:38 IMPRESSION: Small and large bowel ileus Electronically Signed: Aime Luu MD at 10:31 EDT , Physical Exam Narrative Patient complain that he has upper abdomen tenderness. I felt distention. No fever. Abdominal x-ray ordered. Patient having diarrhea loose 3 times yesterday and he is on lactulose therefore held. General: Alert, Oriented x3, Cooperative HEENT: Severe hearing impairment both ears, uses hearing aid Speech chronic, not clear. Atraumatic, PERRLA, EOMI, Normocephalic Oral: No Gingival or Mucosal Lesions/ Ulcerations Neck: Supple, No JVD, Negative Carotid Bruits Chest wall/Lungs: Air entry diminished in bilateral lung bases. No crepitation/rhonchi Cardiovascular: Irregular tachycardia, Normal S1, Normal S2, no murmur Abdomen: Bowel Sounds hyperactive, Soft, mild upper abdomen distended and tender. : No dysuria. No renal angle tenderness. No suprapubic tenderness. Extremities: Right arm old AV fistula. Edema of lower extremities, Capillary Refill Less than 3 Seconds Skin: No rashes, No breakdown Musculoskeletal: No Tenderness to Palpation of Joints or Extremities Neurological: Cranial nerves II-XII grossly intact, DTR 2+/4. No acute focal neurological deficit. Psych/Mental Status: Flat affect Assessment & Plan Assessment/Plan (1) Acute on chronic anemia: PLAN: Plan 58-year-old male is admitted to the [facility] floor for concerns regarding acute on chronic anemia in the setting of prior cirrhosis with portal hypertension, ESRD s/p renal transplant, A-fib on chronic anticoagulation with Xarelto. His labs he has acute on chronic anemia. He also has iron deficiency anemia with a very low ferritin of 6. His EGD did not show any sources of bleeding. Therefore we will perform a colonoscopy tomorrow. Charges/Coding Visit Charges Inpatient E&M: 92949 Subs Hosp L3
[2023-11-07] MEDS: Electrolyte Solution/Peg's 4000 ML PO (16:27)
[2023-11-07 20:57] VITALS: PULSE 117
[2023-11-07] MEDS: Atorvastatin Calcium 40 MG Tablet PO (20:57)
[2023-11-07] MEDS: Mirtazapine 30 MG Tablet PO (20:57)
[2023-11-07 21:07] VITALS: BP 129/88; PULSE 117; RESP 18; TEMP 36.4; O2SAT 98
[2023-11-08] VITALS (14 sets, daily range): BP systolic 93–150; BP diastolic 56–103; PULSE 69–134; RESP 16–18; TEMP 36.2–37.2; O2SAT 93–98; BMI 32.2; BMI 32.3
[2023-11-08 06:14] LABS: Absolute Lymphocyte Count 0.83 X10^3/uL (0.83-4.51); Absolute Neutrophil Count 1.9 X10^3/uL (2.0-7.7); Basophil# 0.03 X10^3/uL; Basophil% 0.8 % (0-1); Eosinophil# 0.25 X10^3/uL; Eosinophils% 6.8 % (0-5); Hematocrit 26.2 % (40-54); Hemoglobin 7.7 g/dL (13.0-16.5); Lymphocyte # 0.83 X10^3/ul (0.83-4.51); Lymphocyte % 22.6 % (19-41); Mean Corp Hgb Conc 29.4 g/dL (32-36); Mean Corpuscular Volume 71.6 fL (80-94); Mean Platelet Vol. 10.2 fl (6.2-12.0); Monocyte# 0.63 X10^3/uL; Monocyte% 17.2 % (0-10); NRBC Flagged by Analyzer 0 % (0-5); Neutrophil # 1.93 X10^3/uL (2.7-7.7); Neutrophil % 52.6 % (47-70); POSITIVE MORPHOLOGY YES; Platelet Count 180 K/mm3 (150-450); RBC Distribution Width CV 20.7 % (11.6-14.6); RBC Distribution Width SD 52.9 fl (35.1-43.9); Red Blood Count 3.66 M/mm3 (4.6-6.2); White Blood Count 3.7 K/mm3 (4.4-11.0)
[2023-11-08 06:37] LABS: ALB/GLOB Ratio 0.8 RATIO (0.9-2.4); AST(SGOT) 32 U/L (15-37); Alanine Aminotransfer ALT/SGPT 27 U/L (16-61); Albumin, Serum 2.8 g/dL (3.2-5.0); Alkaline Phosphatase 100 U/L (45-117); Anion Gap 8 (5-15); BUN 14 mg/dL (7-18); BUN/Creat Ratio 10.2 RATIO (10-20); Calcium,Total 7.7 mg/dL (8.5-10.1); Chloride 119 mmol/L (98-107); Creatinine, Serum 1.37 mg/dL (0.70-1.30); EST Glomerular Filtration Rate 57 mL/min (>60); Est Glom Filt Rate - Afr Amer 69 mL/min (>60); Globulin 3.4 g/dL (2.2-4.2); Glucose 85 mg/dL (74-106); Magnesium 1.3 mg/dL (1.6-2.6); Phosphorus 2.9 mg/dL (2.5-4.9); Potassium 3.5 mmol/L (3.5-5.1); Protein, Total 6.2 g/dL (6.4-8.2); Sodium Level 144 mmol/L (136-145)
[2023-11-08 06:46] LABS: Differential Indicated SCAN CRITERIA MET
[2023-11-08 06:49] LABS: International Normalized Ratio 1.4; Prothrombin Time (Protime)PT. 17.2 SECONDS (11.7-14.9)
[2023-11-08 06:50] LABS: Partial Thromboplast Time 33.1 Seconds (24.1-36.2)
--- NOTE | 2023-11-08 07:40 | PN.HOSP_ITS ---
Reason for Visit Reason for Visit: Diagnoses Anemia, unspecified (11/03/23) Paroxysmal atrial fibrillation (11/03/23) Acute embolism and thrombosis of right femoral vein (11/03/23) Other cirrhosis of liver (11/03/23) Chronic kidney disease, stage 3a (11/03/23) Urinary tract infection, site not specified (11/03/23) Hematuria, unspecified (11/03/23) Kidney transplant status (11/03/23) Subjective Subjective Patient is a 58-year-old gentleman with multiple comorbidities including chronic kidney disease s/p renal transplant, cirrhosis of the liver with esophageal varices admitted with lightheadedness and anemia. Admitted to regular nursing floor for further management Objective Data Objective Data Vital Signs: Vital Signs Temp Pulse Resp BP Pulse Ox O2 Del Method 98.3 F 95 18 125/79 H 95 Room Air 11/08/23 05:44 11/08/23 05:44 11/08/23 05:44 11/08/23 05:44 11/08/23 05:44 11/08/23 05:44 Oxygen Delivery Method Room Air Weight: 108 kg Body Mass Index (BMI) 32.2 Intake & Output: Intake and Output for Last 24 Hours 11/06/23 11/07/23 11/08/23 23:59 23:59 23:59 Intake Total 1844.5 / 1844.5 7145 / 7145 208.75 / 208.75 Output Total 1075 / 1075 1425 / 1425 650 / 650 Balance 769.5 / 769.5 5720 / 5720 -441.25 / -441.25 Lab / Micro Data 11/08/23 05:26 11/08/23 05:26 Labs: Laboratory Results - last 24 hr 11/07/23 05:05: Differential Comment SCANNED, Hypochromasia 1+, Anisocytosis 2+, Microcytosis 1+, Macrocytosis 1+, Acanthocytes (Spur) 1+ 11/08/23 05:26: WBC 3.7 L, RBC 3.66 L, Hgb 7.7 L, Hct 26.2 L, MCV 71.6 L, MCH 21.0 L, MCHC 29.4 L, RDW Std Deviation 52.9 H, RDW Coeff of Anil 20.7 H, Plt Count 180, MPV 10.2, Immature Gran % (Auto) 0.000, Neut % (Auto) 52.6, Lymph % (Auto) 22.6, [place] % (Auto) 17.2 H, Eos % (Auto) 6.8 H, Baso % (Auto) 0.8, A bsolute Neuts (auto) 1.9 L, Absolute Lymphs (auto) 0.83, Nucleated RBC % 0, PT 17.2 H, INR 1.4, APTT 33.1, Sodium 144, Potassium 3.5, Chloride 119 H, Carbon Dioxide 17.0 L, Anion Gap 8, BUN 14, Creatinine 1.37 H, Estim Creat Clear Calc 76.10, Est GFR (MDRD) Af Amer 69, Est GFR (MDRD) Non-Af 57 L, BUN/Creatinine Ratio 10.2, Glucose 85, Calcium 7.7 L, Phosphorus 2.9, Magnesium 1.3 L, Total Bilirubin 1.40 H, AST 32, ALT 27, Alkaline Phosphatase 100, Total Protein 6.2 L, Albumin 2.8 L, Globulin 3.4, Albumin/Globulin Ratio 0.8 L Micro: Microbiology 11/07/23 11:55 Stool Enteric Bacteriology - Final 11/07/23 11:55 Stool Stool Lactoferrin - Final 11/07/23 11:55 Stool Stool Occult Blood (NYA) - Final 11/03/23 19:00 Urine Catheter - Catheter Urine Culture - Final Klebsiella pneumoniae sp pneum 11/03/23 13:00 Stool Stool Occult Blood (NYA) - Final Radiography Diagnostic Testing: Radiology Impression Abdomen X-Ray 11/07/23 08:38 IMPRESSION: Small and large bowel ileus Electronically Signed: Aime Luu MD at 10:31 EDT , Physical Exam Narrative GENERAL: cooperative HEENT: Atraumatic; normocephalic EYES; Anicteric, Normal Conjunctiva NECK; supple, normal thyroid, RESPIRATORY: Diminished to auscultation CARDIOVASCULAR: Regular S1 S2, GI: soft, normoactive bowel sounds, : No Renal angle tenderness; EXTREMITIES: No edema, no clubbing, MUSCULOSKELETAL: no muscle wasting NEURO: Awake; no lateralizing signs. SKIN: No Rash PSYCH; Flat affect Assessment & Plan Assessment/Plan (1) Acute on chronic anemia: PLAN: Plan Patient is a 58-year-old gentleman with multiple comorbidities including chronic kidney disease s/p renal transplant, cirrhosis of the liver with esophageal varices admitted with lightheadedness and anemia. Admitted to regular nursing floor for further management 1. Acute on chronic anemia ? Patient underwent EGD on 11/05/2023 with no evidence of bleeding found. Scheduled to undergo colonoscopy on 11/08/2023. Patient is on systemic anticoagulation with Xarelto currently being held 2. History of neurogenic bladder ? With abnormal urinalysis. UTI was ruled out with urine cultures 3. GERD ? On PPI 4. Previous history of kidney transplant ? Patient is on tacrolimus as well as CellCept continue 5. Chronic kidney disease stage IIIb ? Kidney function at baseline 6. Paroxysmal A-fib ? Patient is on calcium channel blockers as well as beta-blockers. Patient was on Eliquis held as a result of suspected lower GI bleed 7. Moderate MRDD ? Supportive care 8. Hypertension - Blood pressure controlled, home medications continued with dose adjustment as needed 9. Depression ? Patient is on Remeron 10. Small bowel ileus ? Secondary to frequent lactulose use health 11. History of VTE ? Previous history of DVT and PE patient is on Xarelto which is currently being held with plans to resume at discharge 12. Cirrhosis of the liver with esophageal varices -Continue lactulose and rifaximin 13. DVT prophylaxis ? SC heparin for now Time spent in the patient's overall evaluation,decision-making process, review of diagnostic data, adjustment of management, discussion with other providers, nursing nursing and ancillary staff involved in patient's care documentation, 50 Minutes Charges/Coding Visit Charges Inpatient E&M: 07634 [facility] Hosp L3
[2023-11-08] MEDS: Metoprolol Tartrate 25 MG Tablet PO ×2 (07:57→21:45)
[2023-11-08] MEDS: dilTIAZem CD 120 MG Capsule PO (07:57)
[2023-11-08] MEDS: Pantoprazole Sodium 40 MG in 0.9% Normal Saline (100mL MB+) 100 ML 330 MG IV ×2 (09:45→21:45)
--- NOTE | 2023-11-08 12:58 | PRE.ANES_ITS ---
ASA Classification* ASA Classification ASA Classification: 3 Assessment & Plan Anesthesia* Anesthesia Assessment Anesthesia Assessment: Discussed sedation and/or anesthesia options, risks, benefits, and alternatives with patient/parents/legal guardian/POA. Questions invited. The patient/parents/legal guardian/POA seems to understand and agrees to proceed with anesthesia plan. Reviewed the physical assessment, medical history, allergy history and patient home medications list prior to surgery/procedure/anesthetic and documented any changes. Performed airway and anesthesia risk assessments. Anesthesia Type Anesthesia Type: MAC History Source History Obtained from:: Patient and Chart Anesthesia Focused Assessment* Temperature: 98.2 F Pulse Rate: 98 Blood Pressure: 128/87 Respiratory Rate: 18 Pulse Ox: 98 Airway Assessment Mouth opens: >3 cm Mallampati Score: IV Teeth Condition: Intact Neck Range of motion (ROM): Limited ROM Comment: Decreased extension Focused Labs Anesthesia Preop lab: CBC WBC 3.7 K/mm3 (4.4-11.0) L 11/08/23 05:26 RBC 3.66 M/mm3 (4.6-6.2) L 11/08/23 05:26 Hgb 7.7 g/dL (13.0-16.5) L 11/08/23 05:26 Hct 26.2 % (40-54) L 11/08/23 05:26 Plt Count 180 K/mm3 (150-450) 11/08/23 05:26 CHEMISTRY Potassium 3.5 mmol/L (3.5-5.1) 11/08/23 05:26 Sodium 144 mmol/L (136-145) 11/08/23 05:26 Magnesium 1.3 mg/dL (1.6-2.6) L 11/08/23 05:26 Phosphorus 2.9 mg/dL (2.5-4.9) 11/08/23 05:26 BUN 14 mg/dL (7-18) 11/08/23 05:26 Creatinine 1.37 mg/dL (0.70-1.30) H 11/08/23 05:26 Glucose 85 mg/dL (74-106) 11/08/23 05:26 POC Glucose 93 mg/dL (74-106) 01/28/23 16:38 TSH 1.50 uIU/mL (0.358-3.74) 07/26/23 05:01 COAG PT 17.2 SECONDS (11.7-14.9) H 11/08/23 05:26 Pre-Assessment Diagnosis/Proposed Procedure Planned Operative Procedure(s): Colonoscopy Anesthesia History Anesthesia History - tabulating machine mechanic: Anesthesia History - tabulating machine mechanic Hx Hospitalization No 02/24/18 00:05 Any Problems With Anesthesia No 11/07/23 23:51 Cholinesterase deficiency No 11/07/23 23:51 You/Your Family Experience fever (hyperthermia) with Relationship Recent Exposure to Contagious No 11/07/23 23:51 Disease Does patient have nerve No 11/07/23 23:51 stimulator Patient instructed to have device shut off --Does patient have Pacemaker or ICD? When Was Last Pacemaker Check QUESTION #4 FULL TEXT: You/Your Family Experience fever (hyperthermia) with Anesthesia Last Oral Intake Last Oral intake: Last Oral Intake NPO since 00:00 11/08/23 12:55 Meds taken in AM with sips of Yes 11/08/23 12:55 water? Meds patient instructed to take am of surgery PONV PONV - tabulating machine mechanic: PONV - tabulating machine mechanic Female HX of Motion Sickness HX of N/V After Surgery Non-Smoker Duration of Surgery greater than 60 minutes Number of Risk Factors PONV Score Height & Weight Height & Weight: Anesthesia: Height & Weight Height 6 ft 11/08/23 12:55 Weight: 108 kg 11/08/23 12:55 Body Mass Index (BMI) 32.3 11/08/23 12:55 Respiratory Assessment Respiratory Assessment - tabulating machine mechanic: Respiratory Tract Infection Hx - tabulating machine mechanic Hx Respiratory Tract Infection No 11/07/23 23:51 STOP Sleep Apnea STOP Sleep Apnea - tabulating machine mechanic: STOP Sleep Apnea - tabulating machine mechanic Hx Hypertension Yes 11/04/23 10:29 Hx Sleep Apnea No 11/05/23 12:55 CPAP BIPAP Do you snore loudly (louder No 11/03/23 17:26 than talking or can be heard Do you often feel tired/ No 11/03/23 17:26 fatigued/ sleepy during daytime? Has anyone observed you stop No 11/03/23 17:26 breathing during sleep? STOP Results Negative 11/05/23 12:40 QUESTION #5 FULL TEXT : Do you snore loudly (louder than talking or can be heard through closed doors)? Tobacco Use History Tobacco Use History - tabulating machine mechanic: Tobacco Use History - tabulating machine mechanic Tobacco Use Non-smoker 08/31/20 04:06 Smoking Status Never smoker 11/03/23 17:26 Hx Tobacco Use No 11/03/23 17:26 Years Smoking Packs Smoked per Day Smoking Cessation Date was within the last 15 years Hx Smoking Cessation Date Hx Smoking Cessation Counseling Hematologic Medial History Hematologic Hx - tabulating machine mechanic: Hematologic Medical Hx - senior programmer Hx of Blood Transfusion Yes 11/03/23 17:26 Hx of Transfusion in last 3 No 11/03/23 17:26 Months Date of Last Transfusion (if within last 3 months) Ever experience any problems No 11/03/23 17:26 with transfusion(s)? Specify any problems Hx of Preganancy in last 3 N/A 11/03/23 17:26 Months Nurse Filling Out Transfusion JESSICA 11/03/23 17:26 & Questions: Date: 11/03/23 11/03/23 17:26 Time: 17:43 11/03/23 17:26 Patient unable to answer at this time (ie. confused, unrespo /Reproduction History /Reproductive History - tabulating machine mechanic: /Reproductive Hx- tabulating machine mechanic Hx Now Gestational Age (in weeks): EDC: Hx Hx Para Hx Section SAB Active Medications Active Medications: Current Medications Generic Name Dose Route Start Last Admin Trade Name Freq PRN Reason Stop Dose Admin Acetaminophen 650 mg 11/03/23 17:26 Acetaminophen 325 Mg Tablet PO Q6H PRN PRN Pain 1-10 Or Fever >100.7 Albuterol Sulfate 2.5 mg 11/03/23 17:26 Albuterol 2.5 Mg/3 Ml Vial.Neb. INHALATION Q2H PRN PRN SOB &/OR WHEEZING Allopurinol 100 mg 11/04/23 10:00 11/07/23 10:49 Allopurinol 100 Mg Tablet PO 100 mg DAILY SERA Administration Atorvastatin Calcium 40 mg 11/03/23 22:00 11/07/23 20:57 Atorvastatin Calcium 40 Mg Tablet PO 40 mg QHS SERA Administration Diltiazem HCl 120 mg 11/04/23 10:00 11/08/23 07:57 Diltiazem Cd 120 Mg Capsule PO 120 mg DAILY SERA Administration Heparin Sodium (Porcine) 5,000 unit 11/03/23 22:00 11/07/23 20:56 Heparin Injection (Vial) 5,000 Unit/Ml Vial SC 5,000 unit Q12 SERA Administration Pantoprazole Sodium 40 mg/ 110 mls @ 330 mls/hr 11/03/23 18:00 11/08/23 10:40 Sodium Chloride IV Infused Q12 SERA Infusion Sodium Chloride 250 mls @ 15 mls/hr 11/03/23 17:51 IV .[id number] PRN Additional IVPB Infusion Sodium Chloride 250 mls @ 15 mls/hr 11/03/23 17:51 IV .[id number] PRN Saline Flush Lactated Ringer's 1,000 mls @ 75 mls/hr 11/07/23 11:00 11/08/23 00:02 IV 11/08/23 13:39 Infused .[id number] SERA Infusion Lactulose 10 gm 11/07/23 10:00 Lactulose 20 Gm/30 Ml Udc PO BID SERA Melatonin 3 mg 11/03/23 17:26 Melatonin 3 Mg Tablet PO QHS PRN PRN INSOMNIA Metoprolol Tartrate 25 mg 11/03/23 22:00 11/08/23 07:57 Metoprolol Tartrate 25 Mg Tablet PO 25 mg BID SERA Administration Protocol Mirtazapine 30 mg 11/03/23 22:00 11/07/23 20:57 Mirtazapine 30 Mg Tablet PO 30 mg QHS SERA Administration Mycophenolate Mofetil 500 mg 11/03/23 22:00 11/07/23 20:56 Mycophenolate Mofetil 250 Mg Capsule PO 500 mg BID SERA Administration Ondansetron HCl 4 mg 11/03/23 17:26 Ondansetron 4 Mg/2 Ml Vial IV Q8H PRN PRN NAUSEA/VOMITING Rifaximin 550 mg 11/03/23 22:00 11/07/23 20:58 Rifaximin 550 Mg Tablet PO 550 mg BID SERA Administration Sodium Chloride 10 - 40 ml 11/03/23 17:51 11/07/23 16:28 0.9% Saline Lock 10 Ml Syringe IV 10 ml UD PRN Administration SALINE FLUSH Tacrolimus 0.5 mg 11/03/23 22:00 11/07/23 20:58 Tacrolimus 0.5 Mg Capsule PO 0.5 mg BID SERA Administration [facility] Medical History Wears hearing aid in both ears Kidney disease Dialysis patient Anxiety and depression History of anemia History of chronic kidney disease History of deep vein thrombosis History of [place] (myocardial infarction) Myocardial infarct History of encephalopathy History of pulmonary embolism History of DVT (deep vein thrombosis) Severe protein-calorie malnutrition Anemia in chronic illness Neutropenia Bladder dysfunction Immunosuppressed status Chronic kidney disease, stage 3b Pancytopenia HTN (hypertension) Mild intellectual disability Urinary retention Vocal cord dysfunction Bronchitis Pulmonary embolism CKD (chronic kidney disease), stage III Neurogenic bladder disorder DVT (deep venous thrombosis) Congenital nystagmus Home Medications ?Medication ?Instructions ?Recorded ?Last Taken ?Type mycophenolate mofetil 500 mg tablet 500 mg PO BID TRANSPLANT 07/14/16 01/26/23 History ANTI-REJECTION multivitamin 1 tab PO DAILY SUPPLEMENT 02/13/22 01/26/23 History lactulose 20 gram/30 mL oral 45 ml PO 4X/DAY hepatic failure 06/13/22 01/26/23 History solution rifaximin 550 mg tablet (Xifaxan) 550 mg PO BID ANTIBIOTIC 07/16/22 01/26/23 History mirtazapine 30 mg tablet 30 mg PO QHS DEPRESSION 11/01/22 01/25/23 History diltiazem HCl 120 mg 120 mg PO DAILY BLOOD PRESSURE #30 01/01/23 01/26/23 Rx tablet,extended release 24 hr tabs (Cardizem [place]) metoprolol tartrate 25 mg tablet 25 mg PO BID BLOOD PRESSURE #0 tabs 01/01/23 01/26/23 Rx tacrolimus 0.5 mg capsule, 0.5 mg PO BID TRANSPLANT 01/15/23 01/26/23 History immediate-release ANTI-REJECTION atorvastatin 40 mg tablet 40 mg PO QHS hld 07/25/23 Unknown History pantoprazole 40 mg tablet,delayed 40 mg PO DAILY gerd 07/25/23 Unknown History release aspirin 81 mg capsule 81 mg PO DAILY blood thinner 30 08/06/23 Unknown Rx days #30 caps rivaroxaban 20 mg tablet (Xarelto) 20 mg PO DAILY blood thinner 30 08/06/23 Unknown Rx days #30 tabs acetaminophen 325 mg tablet 650 mg PO Q4H PRN fever or pain 11/03/23 Unknown History allopurinol 100 mg tablet 100 mg PO DAILY URIC ACID LEVELS 11/03/23 Unknown History guaifenesin 100 mg/5 mL oral 200 mg PO Q4H PRN cough 11/03/23 Unknown History liquid (Adult Tussin Chest Congestion) magnesium hydroxide 400 mg/5 mL 30 ml PO DAILY PRN constipation 11/03/23 Unknown History oral suspension (Milk of Magnesia) Allergy/AdvReac Type Severity Reaction Status Date / Time red dye Allergy Unknown unknown Verified 11/05/23 11:41 Family History Mother Hypertension Father Diabetes Surgical History Renal transplant recipient Kidney transplant recipient S/P arteriovenous (AV) fistula creation Social History household members: none housing: assisted Smoking Status: Never smoker second hand exposure: No alcohol intake: never substance use type: does not use caffeine: No Review of Systems (Anesthesia) ROS Narrative System reviewed and no additional complaints, except as documented.
--- NOTE | 2023-11-08 13:37 | OP.CCLET_ITS ---
11/08/2023 Mike Bella MD [address] [phone] Re : Colonoscopy procedure for Skyler Pinzon Dear Dr. Bella This procedure was performed on Wednesday, November 08, 2023. My impressions and recommendations are as follows: Impressions : - Preparation of the colon was fair. - Diverticulosis in the recto-sigmoid colon and in the sigmoid colon. - Stool in the rectum, in the sigmoid colon, in the transverse colon and in the cecum. - No specimens collected. Recommendations : - [facility]. - Resume previous diet. - Repeat colonoscopy in 6 months because the bowel preparation was poor. - Continue present medications. My findings are described in the full procedure note, which is enclosed. If I can be of further assistance, please feel free to contact me at . Sincerely, Rahat Nicholas, 11/08/2023 1:37:10 PM This report has been signed electronically.
--- NOTE | 2023-11-08 13:37 | OP.COLON_ITS ---
Patient Name: Skyler Pinzon Procedure Date: 11/08/2023 12:54 PM Date of : 1965 Age: 58 Procedure: Colonoscopy Indications: Iron deficiency anemia Providers: Rahat Nicholas DO Medicines: Monitored Anesthesia Care Patient Profile: This is a 58 year old male. Refer to note in patient chart for documentation of history and physical. Last Colonoscopy: none. The patient's first colonoscopy is today. Complications: No immediate complications. Procedure: Pre-Anesthesia Assessment: - Prior to the procedure, a History and Physical was performed, and patient medications and allergies were reviewed. The patient is competent. The risks and benefits of the procedure and the sedation options and risks were discussed with the patient. All questions were answered and informed consent was obtained. Patient identification and proposed procedure were verified by the physician in the pre-procedure area. Mental Status Examination: alert and oriented. Airway Examination: normal oropharyngeal airway and neck mobility. Respiratory Examination: clear to auscultation. CV Examination: normal. Prophylactic Antibiotics: The patient does not require prophylactic antibiotics. Prior Anticoagulants: The patient has taken no anticoagulant or antiplatelet agents. ASA Grade Assessment: III - A patient with severe systemic disease. After reviewing the risks and benefits, the patient was deemed in satisfactory condition to undergo the procedure. The anesthesia plan was to use monitored anesthesia care (MAC). Immediately prior to administration of medications, the patient was re-assessed for adequacy to receive sedatives. The heart rate, respiratory rate, oxygen saturations, blood pressure, adequacy of pulmonary ventilation, and response to care were monitored throughout the procedure. The physical status of the patient was re-assessed after the procedure. After I obtained informed consent, the scope was passed under direct vision. Throughout the procedure, the patient's blood pressure, pulse, and oxygen saturations were monitored continuously. The Colonoscope was introduced through the anus and advanced to the cecum, identified by appendiceal orifice and ileocecal valve. The colonoscopy was performed without difficulty. The patient tolerated the procedure well. The quality of the bowel preparation was fair. The ileocecal valve, appendiceal orifice, and rectum were photographed. Scope In: 1:09:39 PM Scope Withdrawal Time 0 hours 9 minutes 20 seconds Scope Out: 1:31:32 PM Total Procedure Duration Time 0 hours 21 minutes 53 seconds Findings: The perianal and digital rectal examinations were normal. A few small-mouthed diverticula were found in the recto-sigmoid colon and sigmoid colon. Stool was found in the rectum, in the sigmoid colon, in the transverse colon and in the cecum. Impression: - Preparation of the colon was fair. - Diverticulosis in the recto-sigmoid colon and in the sigmoid colon. - Stool in the rectum, in the sigmoid colon, in the transverse colon and in the cecum. - No specimens collected. Recommendation: - [facility]. - Resume previous diet. - Repeat colonoscopy in 6 months because the bowel preparation was poor. - Continue present medications. Procedure Code(s): --- Professional --- 42715, Colonoscopy, flexible; diagnostic, including collection of specimen(s) by brushing or washing, when performed (separate procedure) CPT copyright 2021 [employer]. All rights reserved. The codes documented in this report are preliminary and upon it application administrator review may be revised to meet current compliance requirements. Rahat Nicholas DO 11/08/2023 1:37:10 PM This report has been signed electronically. Number of Addenda: 0 Note Initiated On: 11/08/2023 12:54 PM
--- NOTE | 2023-11-08 13:40 | PCM.POST.ANE ---
Anesthesia: Postop Eval I Current Vital Signs Temperature: 97.2 F Pulse Rate: 98 Blood Pressure: 101/68 Respiratory Rate: 18 Pulse Ox: 95 Assessment Airway patent: Yes Spontaneous unlabored respirations: Yes nausea: No Vomiting: No Anesthesia Complication: No Fluid Hydration Crystalloid volume administer (ml): 100 Total IV fluid infused: 100 Progress Note Anesthesia document: Postop Eval 1 completed: Yes
[2023-11-08] MEDS: Heparin Injection (Vial) 5,000 UNIT/ML VIAL 5000 UNIT SC (21:45)
[2023-11-08] MEDS: Tacrolimus 0.5 MG Capsule PO (21:45)
[2023-11-08] MEDS: 0.9% Saline Lock 10 ML Syringe IV (21:46)
[2023-11-08] MEDS: Atorvastatin Calcium 40 MG Tablet PO (21:46)
[2023-11-08] MEDS: rifAXIMin 550 MG Tablet PO (21:46)
[2023-11-08] MEDS: Mycophenolate Mofetil 250 MG Capsule 500 MG PO (21:46)
[2023-11-08] MEDS: Mirtazapine 30 MG Tablet PO (21:46)
[2023-11-08] MEDS: Lactulose 20 GM/30 ML UDC 10 GM PO (21:46)
[2023-11-09 02:00] VITALS: BP 103/66; PULSE 96; RESP 16; TEMP 36.6; O2SAT 96
[2023-11-09 02:49] VITALS: BMI 32.0
--- NOTE | 2023-11-09 07:12 | DS.PCM_ITS ---
Providers Date of Admission: 11/03/23 Date of Discharge: 11/09/23 Primary Care Physician: Dr. Mike Bella MD Consultations 11/03/23 17:26 Consult: Gastroenterology Routine Consulting Provider: Dip[facility] G[facility] Reason for Consult: anemia, hx varicies EMERGENT Consult: No MD Notified: Yes Date Notified: 11/03/23 Time Notified: 16:34 Method of Notification: ED Physician Initiated Reason For Visit: UTI, ANEMIA Diagnosis Discharge Diagnosis (1) Acute on chronic anemia: Status: Chronic Code(s): D64.9 - Anemia, unspecified Plan Patient is a 58-year-old gentleman with multiple comorbidities including chronic kidney disease s/p renal transplant, cirrhosis of the liver with esophageal varices admitted with lightheadedness and anemia. Admitted to regular nursing floor for further management 1. Acute on chronic anemia ? Patient underwent EGD on 11/05/2023 with no evidence of bleeding found. Scheduled to undergo colonoscopy on 11/08/2023. Patient is on systemic anticoagulation with Xarelto currently being held -11/09/2023; patient underwent colonoscopy the day prior findings and recommendations as below Colonoscopy Impressions : - Preparation of the colon was fair. - Diverticulosis in the recto-sigmoid colon and in the sigmoid colon. - Stool in the rectum, in the sigmoid colon, in the transverse colon and in the cecum. - No specimens collected. Recommendations : - [facility]. - Resume previous diet. - Repeat colonoscopy in 6 months because the bowel preparation was poor. - Continue present medications. 2. History of neurogenic bladder ? With abnormal urinalysis. UTI was ruled out with urine cultures 3. GERD ? On PPI 4. Previous history of kidney transplant ? Patient is on tacrolimus as well as CellCept continue 5. Chronic kidney disease stage IIIb ? Kidney function at baseline 6. Paroxysmal A-fib ? Patient is on calcium channel blockers as well as beta-blockers. Patient was on Eliquis held as a result of suspected lower GI bleed 7. Moderate MRDD ? Supportive care 8. Hypertension - Blood pressure controlled, home medications continued with dose adjustment as needed 9. Depression ? Patient is on Remeron 10. Small bowel ileus ? Secondary to frequent lactulose use health 11. History of VTE ? Previous history of DVT and PE patient is on Xarelto which is currently being held with plans to resume at discharge 12. Cirrhosis of the liver with esophageal varices -Continue lactulose and rifaximin 13. DVT prophylaxis ? SC heparin for now Time spent in the patient's overall evaluation,decision-making process, review of diagnostic data, adjustment of management, discussion with other providers, nursing nursing and ancillary staff involved in patient's care documentation, 37 Minutes Medications at Discharge Home Medications mycophenolate mofetil 500 mg tablet 500 mg PO BID TRANSPLANT ANTI-REJECTION 07/14/16 multivitamin 1 tab PO DAILY SUPPLEMENT 02/13/22 lactulose 20 gram/30 mL oral solution 45 ml PO 4X/DAY hepatic failure 06/13/22 rifaximin 550 mg tablet (Xifaxan) 550 mg PO BID ANTIBIOTIC 07/16/22 mirtazapine 30 mg tablet 30 mg PO QHS DEPRESSION 11/01/22 diltiazem HCl 120 mg tablet,extended release 24 hr (Cardizem LA) 120 mg PO DAILY BLOOD PRESSURE #30 tabs 01/01/23 metoprolol tartrate 25 mg tablet 25 mg PO BID BLOOD PRESSURE #0 tabs 01/01/23 tacrolimus 0.5 mg capsule, immediate-release 0.5 mg PO BID TRANSPLANT ANTI- REJECTION 01/15/23 atorvastatin 40 mg tablet 40 mg PO QHS hld 07/25/23 pantoprazole 40 mg tablet,delayed release 40 mg PO DAILY gerd 07/25/23 aspirin 81 mg capsule 81 mg PO DAILY blood thinner 30 days #30 caps 08/06/23 rivaroxaban 20 mg tablet (Xarelto) 20 mg PO DAILY blood thinner 30 days #30 tabs 08/06/23 acetaminophen 325 mg tablet 650 mg PO Q4H PRN fever or pain 11/03/23 allopurinol 100 mg tablet 100 mg PO DAILY URIC ACID LEVELS 11/03/23 guaifenesin 100 mg/5 mL oral liquid (Adult Tussin Chest Congestion) 200 mg PO Q4H PRN cough 11/03/23 magnesium hydroxide 400 mg/5 mL oral suspension (Milk of Magnesia) 30 ml PO DAILY PRN constipation 11/03/23 pantoprazole 40 mg tablet,delayed release (Protonix) 40 mg PO DAILY #60 tabs 11/09/23 Physical Exam Narrative GENERAL: cooperative HEENT: Atraumatic; normocephalic EYES; Anicteric, Normal Conjunctiva NECK; supple, normal thyroid, RESPIRATORY: Diminished to auscultation CARDIOVASCULAR: Regular S1 S2, GI: soft, normoactive bowel sounds, : No Renal angle tenderness; EXTREMITIES: No edema, no clubbing, MUSCULOSKELETAL: no muscle wasting NEURO: Awake; no lateralizing signs. SKIN: No Rash PSYCH; Flat affect Weight / BMI Weight Weight: 107.2 kg Body Mass Index (BMI) 32.0 ABG / Lab / Microbiology Data 11/09/23 09:05 11/09/23 09:05 Laboratory: Laboratory Results - last 24 hr 11/08/23 05:26: Differential Comment COMMENT Microbiology: Microbiology 11/07/23 11:55 Stool Enteric Bacteriology - Final 11/07/23 11:55 Stool Stool Lactoferrin - Final 11/07/23 11:55 Stool Stool Occult Blood ([facility]) - Final 11/03/23 19:00 Urine Catheter - Catheter Urine Culture - Final Klebsiella pneumoniae sp pneum 11/03/23 13:00 Stool Stool Occult Blood ([facility]) - Final D/C Instructions Discharge Diet: No restrictions Discharge Activity: Return to Normal Activity Call your doctor if you observe: Fever of 101 or Higher, Shortness of breath, Fainting spells and Chest pain Meaningful Use Info Meaningful Use Meaningful Use Diagnoses (Choose all that apply): None applicable Ischemic Stroke Statin Dosing Therapy Reference: STATIN DOSE THERAPY REFERENCE: * Patients > 75 years receive moderate or high dose statin therapy. * Patients 75 years or YOUNGER should receive HIGH intensity statin dose unless contraindicated. You will be required to document reason for non-treatment if statin daily dose does not meet guidelines. HIGH DOSE STATIN THERAPY DAILY Atorvastatin > than or = to 40 mg Rosuvastatin > than or = to 20 mg Amlodipine + Atorvastatin > than or = to 2.5/40 mg Ezetimibe + Simvastatin 10/80 mg Simvastatin 80mg Discharge Plan Admission Admit Date/Time: 11/03/23 16:21 Attending Provider: Rayo Cartagena Primary Care Provider: Mike Bella Consulting Providers: Linda Mercer; Mariola Grace; Lokesh Rivera Discharge Orders/Prescriptions Prescriptions: New pantoprazole [Protonix] 40 mg tablet,delayed release (DR/EC) 40 mg PO DAILY Qty: 60 0RF Continued mycophenolate mofetil 500 MG tablet 500 mg PO BID multivitamin Tablet 1 tab PO DAILY lactulose 20 gram/30 mL solution 45 ml PO 4X/DAY Xifaxan 550 mg tablet 550 mg PO BID tacrolimus 0.5 mg capsule 0.5 mg PO BID mirtazapine 30 mg tablet 30 mg PO QHS diltiazem HCl [Cardizem LA] 120 mg tablet extended release 24 hr 120 mg PO DAILY Qty: 30 0RF metoprolol tartrate 25 mg Tablet 25 mg PO BID Qty: 0 0RF acetaminophen 325 mg tablet 650 mg PO Q4H PRN (Reason: fever or pain) allopurinol 100 mg tablet 100 mg PO DAILY guaifenesin [Adult Tussin Chest Congestion] 100 mg/5 mL liquid 200 mg PO Q4H PRN (Reason: cough) magnesium hydroxide [Milk of Magnesia] 400 mg/5 mL suspension 30 ml PO DAILY PRN (Reason: constipation) atorvastatin 40 mg tablet 40 mg PO QHS pantoprazole 40 mg tablet,delayed release (DR/EC) 40 mg PO DAILY Xarelto 20 mg tablet 20 mg PO DAILY 30 Days Qty: 30 0RF Rx Instructions: must administer with evening meal aspirin 81 mg capsule 81 mg PO DAILY 30 Days Qty: 30 0RF Referrals / Follow Up: Mike Bella MD [Primary Care Provider] - Within 1 Week Disposition Disposition (needs filled in before D/C Order can be placed): NonSkilled NH/Intermed Care Charges/Coding Visit Charges Inpatient E&M: 44127 Disch Hosp >30min
[2023-11-09 08:38] VITALS: BP 153/95; PULSE 95; RESP 18; TEMP 36.9; O2SAT 95
[2023-11-09] MEDS: 0.9% Saline Lock 10 ML Syringe IV (08:46)
[2023-11-09] MEDS: Mycophenolate Mofetil 250 MG Capsule 500 MG PO (08:46)
[2023-11-09] MEDS: Pantoprazole Sodium 40 MG in 0.9% Normal Saline (100mL MB+) 100 ML 330 MG IV (08:46)
[2023-11-09] MEDS: Lactulose 20 GM/30 ML UDC 10 GM PO (08:47)
[2023-11-09] MEDS: rifAXIMin 550 MG Tablet PO (08:47)
[2023-11-09] MEDS: dilTIAZem CD 120 MG Capsule PO (08:47)
[2023-11-09 08:49] VITALS: BP 153/95; PULSE 95
[2023-11-09] MEDS: Metoprolol Tartrate 25 MG Tablet PO (08:49)
[2023-11-09] MEDS: Heparin Injection (Vial) 5,000 UNIT/ML VIAL 5000 UNIT SC (08:50)
[2023-11-09] MEDS: Tacrolimus 0.5 MG Capsule PO (08:50)
[2023-11-09] MEDS: Allopurinol 100 MG Tablet PO (08:50)
[2023-11-09 09:24] LABS: Absolute Lymphocyte Count 1.05 X10^3/uL (0.83-4.51); Absolute Neutrophil Count 2.1 X10^3/uL (2.0-7.7); Basophil# 0.04 X10^3/uL; Basophil% 0.9 % (0-1); Eosinophil# 0.27 X10^3/uL; Eosinophils% 6.3 % (0-5); Lymphocyte # 1.05 X10^3/ul (0.83-4.51); Lymphocyte % 24.6 % (19-41); Mean Corpuscular Hgb 21.4 pg (27.0-32.0); Mean Corpuscular Volume 71.4 fL (80-94); Mean Platelet Vol. 10.1 fl (6.2-12.0); Monocyte# 0.78 X10^3/uL; Monocyte% 18.3 % (0-10); NRBC Flagged by Analyzer 0 % (0-5); Neutrophil # 2.12 X10^3/uL (2.7-7.7); Neutrophil % 49.7 % (47-70); POSITIVE MORPHOLOGY YES; Platelet Count 190 K/mm3 (150-450); RBC Distribution Width CV 20.8 % (11.6-14.6); RBC Distribution Width SD 52.4 fl (35.1-43.9); White Blood Count 4.3 K/mm3 (4.4-11.0)
[2023-11-09 09:32] LABS: Differential Indicated SCAN CRITERIA MET
[2023-11-09 09:41] LABS: Anion Gap 5 (5-15); BUN 16 mg/dL (7-18); BUN/Creat Ratio 10.9 RATIO (10-20); Chloride 118 mmol/L (98-107); Creatinine, Serum 1.47 mg/dL (0.70-1.30); EST Glomerular Filtration Rate 53 mL/min (>60); Est Glom Filt Rate - Afr Amer 64 mL/min (>60); Estimated Creatinine Clearance 70.98 ml/min; Glucose 115 mg/dL (74-106); Magnesium 1.5 mg/dL (1.6-2.6); Phosphorus 2.3 mg/dL (2.5-4.9); Potassium 3.4 mmol/L (3.5-5.1); Sodium Level 141 mmol/L (136-145)
--- NOTE | 2023-11-09 10:11 | PHA.DC_ITS ---
Pharmacy [place] Med Reconciliation Pharmacy Service has performed discharge medication reconciliation for this patient. Duplicate pantoprazole removed. The patient's discharge medication list was reviewed for discrepancies and discrepancies were resolved. Medications at Discharge Home Medications mycophenolate mofetil 500 mg tablet 500 mg PO BID TRANSPLANT ANTI-REJECTION 07/14/16 multivitamin 1 tab PO DAILY SUPPLEMENT 02/13/22 lactulose 20 gram/30 mL oral solution 45 ml PO 4X/DAY hepatic failure 06/13/22 rifaximin 550 mg tablet (Xifaxan) 550 mg PO BID ANTIBIOTIC 07/16/22 mirtazapine 30 mg tablet 30 mg PO QHS DEPRESSION 11/01/22 diltiazem HCl 120 mg tablet,extended release 24 hr (Cardizem LA) 120 mg PO DAILY BLOOD PRESSURE #30 tabs 01/01/23 metoprolol tartrate 25 mg tablet 25 mg PO BID BLOOD PRESSURE #0 tabs 01/01/23 tacrolimus 0.5 mg capsule, immediate-release 0.5 mg PO BID TRANSPLANT ANTI- REJECTION 01/15/23 atorvastatin 40 mg tablet 40 mg PO QHS hld 07/25/23 aspirin 81 mg capsule 81 mg PO DAILY blood thinner 30 days #30 caps 08/06/23 rivaroxaban 20 mg tablet (Xarelto) 20 mg PO DAILY blood thinner 30 days #30 tabs 08/06/23 acetaminophen 325 mg tablet 650 mg PO Q4H PRN fever or pain 11/03/23 allopurinol 100 mg tablet 100 mg PO DAILY URIC ACID LEVELS 11/03/23 guaifenesin 100 mg/5 mL oral liquid (Adult Tussin Chest Congestion) 200 mg PO Q4H PRN cough 11/03/23 magnesium hydroxide 400 mg/5 mL oral suspension (Milk of Magnesia) 30 ml PO DAILY PRN constipation 11/03/23 pantoprazole 40 mg tablet,delayed release (Protonix) 40 mg PO DAILY #60 tabs 11/09/23
--- NOTE | 2023-11-09 10:42 | CASEMGMT ---
Addendum entered by Velia Tabares 11/09/23 11:21: Social Work- SW advised pt of discharge plan for sister to pick him up at noon. AHMET Alvarado Original Note: Social Work- SW called pt sister, Evaristo, to advise that pt is ready for d/c, as there was a note that Evaristo was planning to transport. Evaristo reports that she will transport back to [facility] at noon. Bedside nurse notified. Discharge paperwork sent via [facility] to [facility]. Plan: [facility], [place] AHMET Alvarado
[2023-11-09 11:13] LABS: Anisocytosis 2+; Differential Comment SCANNED; Microcytosis 1+; Ovalocyte 1+; Schistocytes 1+; Tear Drop Cell 1+
[2023-11-09 11:14] LABS: Polychromasia 1+
[2023-11-09 11:42] VITALS: BP 148/100; PULSE 107; RESP 18; TEMP 36.6; O2SAT 98
== END 2023-11-09 12:44 | disposition home or self-care (01) | DRG 812 ==
LOC: ED 13:18 → MS3 17:03
PROVIDERS: Anesthesiology; Internal Medicine; Internal Medicine Gastroenterology; Admitting Provider Internal Medicine; Emergency Provider Emergency Medicine; PCP Family Medicine; Visit Provider Internal Medicine
PROC: 0DJ08ZZ Inspection of Upper Intestinal Tract, Via Natural or Artificial Opening Endoscopic (ICD-10-PCS; CPT 43235; principal; 2023-11-05 11:25)
PROC: 0DJD8ZZ Inspection of Lower Intestinal Tract, Via Natural or Artificial Opening Endoscopic (ICD-10-PCS; CPT 45378; principal; 2023-11-08 13:10)
DX: D50.9 Iron deficiency anemia, unspecified (principal); I85.00 Esophageal varices without bleeding; K76.6 Portal hypertension; K56.7 Ileus, unspecified; Z94.0 Kidney transplant status; K74.60 Unspecified cirrhosis of liver; N18.32 Chronic kidney disease, stage 3b; I48.0 Paroxysmal atrial fibrillation; I12.9 Hypertensive chronic kidney disease with stage 1 through stage 4 chronic kidney disease, or unspecified chronic kidney disease; F32.A Depression, unspecified; K21.9 Gastro-esophageal reflux disease without esophagitis; K31.89 Other diseases of stomach and duodenum; K22.70 Barrett's esophagus without dysplasia; K57.30 Diverticulosis of large intestine without perforation or abscess without bleeding; E80.7 Disorder of bilirubin metabolism, unspecified; K26.9 Duodenal ulcer, unspecified as acute or chronic, without hemorrhage or perforation; K25.9 Gastric ulcer, unspecified as acute or chronic, without hemorrhage or perforation; N31.9 Neuromuscular dysfunction of bladder, unspecified; R31.9 Hematuria, unspecified; F71 Moderate intellectual disabilities; Z79.2 Long term (current) use of antibiotics; Z79.82 Long term (current) use of aspirin; Z79.01 Long term (current) use of anticoagulants; Z86.718 Personal history of other venous thrombosis and embolism; Z86.711 Personal history of pulmonary embolism
CPT/HCPCS: 36415; 70450; 71045; 74019; 80048; 80053; 80076; 81001; 82274; 82607; 82728; 82746; 83540; 83550; 83630; 83690; 83735; 83880; 84100; 84484; 85025; 85027; 85045; 85610; 85730; 86850; 86900; 86901; 87077; 87086; 87088; 87186; 87506; 88305; 88312; 88342; 93005; 97110; 97116; 97162; 97165; 97530; 97535; 99285; J7030; J7040; J7050; J7120; P9612; A4216; J2405

== ENCOUNTER 2023-11-15 07:53 | Outpatient (RCR) | payer SELFPAY | END 2023-12-01 23:59 | LOC: LABSPEC 07:53 | PROVIDERS: PCP Family Medicine; Referring Provider Family Medicine; Visit Provider Family Medicine | DX: I12.9 Hypertensive chronic kidney disease with stage 1 through stage 4 chronic kidney disease, or unspecified chronic kidney disease (principal); K72.10 Chronic hepatic failure without coma; N17.9 Acute kidney failure, unspecified | CPT/HCPCS: 82140 ==

== ENCOUNTER 2023-12-27 00:28 | Emergency (ER) | payer MEDICARE, SELFPAY ==
[2023-12-27] VITALS (11 sets, daily range): BP systolic 128–165; BP diastolic 80–105; PULSE 79–130; RESP 16–22; TEMP 36.9–37.4; O2SAT 92–96; BMI 32.0
--- NOTE | 2023-12-27 00:36 | EKG12_ITS ---
Test Reason : DYSRHYTHMIA Blood Pressure : / mmHG Vent. Rate : 117 BPM Atrial Rate : 000 BPM P-R Int : 000 ms QRS Dur : 094 ms QT Int : 308 ms P-R-T Axes : 000 012 066 degrees QTc Int : 429 ms Atrial fibrillation with rapid ventricular response Nonspecific ST abnormality Abnormal ECG Confirmed by Claus Johnson ([id number]), manager editorial CARLOS GARCIA ([id number]) on 12/29/2023 7:19:12 AM Referred By: Confirmed By:Claus Johnson
[2023-12-27 00:53] LABS: Absolute Lymphocyte Count 1.16 X10^3/uL (0.83-4.51); Absolute Neutrophil Count 2.9 X10^3/uL (2.0-7.7); Basophil# 0.03 X10^3/uL; Basophil% 0.6 % (0-1); Eosinophil# 0.31 X10^3/uL; Eosinophils% 5.7 % (0-5); Hematocrit 26.6 % (40-54); Hemoglobin 7.7 g/dL (13.0-16.5); Lymphocyte # 1.16 X10^3/ul (0.83-4.51); Lymphocyte % 21.3 % (19-41); Mean Corp Hgb Conc 28.9 g/dL (32-36); Mean Corpuscular Hgb 19.3 pg (27.0-32.0); Mean Corpuscular Volume 66.8 fL (80-94); Monocyte# 1.05 X10^3/uL; Monocyte% 19.3 % (0-10); NRBC Flagged by Analyzer 0 % (0-5); Neutrophil # 2.86 X10^3/uL (2.7-7.7); Neutrophil % 52.5 % (47-70); POSITIVE MORPHOLOGY YES; Platelet Count 171 K/mm3 (150-450); RBC Distribution Width CV 21.9 % (11.6-14.6); RBC Distribution Width SD 51.5 fl (35.1-43.9); Red Blood Count 3.98 M/mm3 (4.6-6.2); White Blood Count 5.4 K/mm3 (4.4-11.0)
[2023-12-27] MEDS: 0.9% Normal Saline (1000mL) 1,000 ML 999 ML IV (00:53)
[2023-12-27] MEDS: Metoprolol Tartrate 5 MG/5 ML Vial IV ×3 (00:53→02:03)
[2023-12-27 00:57] LABS: Differential Indicated SCAN CRITERIA MET
[2023-12-27 01:03] LABS: International Normalized Ratio 3.2; Prothrombin Time (Protime)PT. 32.5 SECONDS (11.7-14.9)
[2023-12-27 01:04] LABS: Partial Thromboplast Time 45.2 Seconds (24.1-36.2)
[2023-12-27] MEDS: Ondansetron 4 MG/2 ML Vial IV (01:23)
[2023-12-27] MEDS: Morphine 4 MG/ML Syringe IV (01:23)
[2023-12-27 01:27] LABS: AST(SGOT) 33 U/L (15-37); Alanine Aminotransfer ALT/SGPT 30 U/L (16-61); Albumin, Serum 3.1 g/dL (3.2-5.0); Alkaline Phosphatase 103 U/L (45-117); Bilirubin, Direct 0.38 mg/dL (0.00-0.30); Globulin 3.8 g/dL (2.2-4.2); Lipase 81 U/L (13-75); Protein, Total 6.9 g/dL (6.4-8.2)
[2023-12-27 01:33] LABS: Anisocytosis 1+; Microcytosis 1+; Ovalocyte RARE
[2023-12-27 01:45] LABS: Anion Gap 10 (5-15); BUN 27 mg/dL (7-18); BUN/Creat Ratio 18.8 RATIO (10-20); Calcium,Total 8.3 mg/dL (8.5-10.1); Chloride 115 mmol/L (98-107); Creatinine, Serum 1.44 mg/dL (0.70-1.30); EST Glomerular Filtration Rate 54 mL/min (>60); Est Glom Filt Rate - Afr Amer 65 mL/min (>60); Estimated Creatinine Clearance 72.46 ml/min; Glucose 102 mg/dL (74-106); Magnesium 1.3 mg/dL (1.6-2.6); Potassium 3.8 mmol/L (3.5-5.1); Sodium Level 142 mmol/L (136-145)
[2023-12-27] MEDS: Metoprolol Tartrate 25 MG Tablet PO (02:02)
[2023-12-27] MEDS: 0.9% Normal Saline (500mL Bag) 500 ML 999 ML IV (03:30)
[2023-12-27] MEDS: Midazolam 5 MG/ML Syringe IV (03:32)
[2023-12-27] MEDS: Propofol 200 MG/20 ML Vial IV BOLUS (03:33)
--- NOTE | 2023-12-27 03:39 | EKG12_ITS ---
Test Reason : RHYTHM CONVERSION Blood Pressure : / mmHG Vent. Rate : 077 BPM Atrial Rate : 077 BPM P-R Int : 164 ms QRS Dur : 092 ms QT Int : 424 ms P-R-T Axes : 067 024 061 degrees QTc Int : 479 ms Normal sinus rhythm Possible Left atrial enlargement Borderline ECG Confirmed by Claus Johnson ([id number]), features editor MIGUEL ANGEL DEAL ([id number]) on 12/29/2023 1:59:18 PM Referred By: Confirmed By:Claus Johnson
--- NOTE | 2023-12-27 03:42 | EX.ED.DYSGE1 ---
HPI History of Present Illness Chief Complaint: Palpitations Informant: patient, family and SNF Narrative Narrative: Patient is a 58-year-old male with past medical history of paroxysmal atrial fibrillation on Lopressor and Cardizem as well as Xarelto. He [facility] at a prison and this evening they noticed that he reported feeling unwell and his heart rate was elevated at approximately 150-160. Therefore secondary to the tachycardia and his known history of atrial fibrillation he was sent to the hospital for evaluation [facility] Medical History Wears hearing aid in both ears Kidney disease Dialysis patient Anxiety and depression History of anemia History of chronic kidney disease History of deep vein thrombosis History of [place] (myocardial infarction) Myocardial infarct History of encephalopathy History of pulmonary embolism History of DVT (deep vein thrombosis) Severe protein-calorie malnutrition Anemia in chronic illness Neutropenia Bladder dysfunction Immunosuppressed status Chronic kidney disease, stage 3b Pancytopenia HTN (hypertension) Mild intellectual disability Urinary retention Vocal cord dysfunction Bronchitis Pulmonary embolism CKD (chronic kidney disease), stage III Neurogenic bladder disorder DVT (deep venous thrombosis) Congenital nystagmus Home Medications ?Medication ?Instructions ?Recorded ?Last Taken ?Type mycophenolate mofetil 500 mg tablet 500 mg PO BID TRANSPLANT 07/14/16 01/26/23 History ANTI-REJECTION multivitamin 1 tab PO DAILY SUPPLEMENT 02/13/22 01/26/23 History lactulose 20 gram/30 mL oral 45 ml PO 4X/DAY hepatic failure 06/13/22 01/26/23 History solution rifaximin 550 mg tablet (Xifaxan) 550 mg PO BID ANTIBIOTIC 07/16/22 01/26/23 History mirtazapine 30 mg tablet 30 mg PO QHS DEPRESSION 11/01/22 01/25/23 History diltiazem HCl 120 mg 120 mg PO DAILY BLOOD PRESSURE #30 01/01/23 01/26/23 Rx tablet,extended release 24 hr tabs (Cardizem LA) metoprolol tartrate 25 mg tablet 25 mg PO BID BLOOD PRESSURE #0 tabs 01/01/23 01/26/23 Rx tacrolimus 0.5 mg capsule, 0.5 mg PO BID TRANSPLANT 01/15/23 01/26/23 History immediate-release ANTI-REJECTION atorvastatin 40 mg tablet 40 mg PO QHS hld 07/25/23 Unknown History aspirin 81 mg capsule 81 mg PO DAILY blood thinner 30 08/06/23 Unknown Rx days #30 caps rivaroxaban 20 mg tablet (Xarelto) 20 mg PO DAILY blood thinner 30 08/06/23 Unknown Rx days #30 tabs acetaminophen 325 mg tablet 650 mg PO Q4H PRN fever or pain 11/03/23 Unknown History allopurinol 100 mg tablet 100 mg PO DAILY URIC ACID LEVELS 11/03/23 Unknown History guaifenesin 100 mg/5 mL oral 200 mg PO Q4H PRN cough 11/03/23 Unknown History liquid (Adult Tussin Chest Congestion) magnesium hydroxide 400 mg/5 mL 30 ml PO DAILY PRN constipation 11/03/23 Unknown History oral suspension (Milk of Magnesia) pantoprazole 40 mg tablet,delayed 40 mg PO DAILY #60 tabs 11/09/23 Unknown Rx release (Protonix) Allergy/AdvReac Type Severity Reaction Status Date / Time red dye Allergy Unknown unknown Verified 12/27/23 00:31 Family History Mother Hypertension Father Diabetes Surgical History Renal transplant recipient Kidney transplant recipient S/P arteriovenous (AV) fistula creation Social History household members: none housing: prison Smoking Status: Never smoker second hand exposure: No alcohol intake: never substance use type: does not use caffeine: No ROS ROS ED Constitutional Constitutional ED: Denies chills or fever(s) ENT ENT ED: Denies sore throat Cardiovascular Cardiovascular: Reports chest pain, palpitations and racing heartbeat Respiratory/Chest Respiratory/Chest: Denies cough or dyspnea Gastrointestinal Gastrointestinal: Reports abdominal pain; Denies diarrhea, nausea or vomiting Genitourinary Genitourinary ED: Denies dysuria Musculoskeletal Musculoskeletal: Denies myalgias Integumentary Denies rash Neurologic Neurologic: Denies headache(s) Hematologic/Lymphatic Hematologic/Lymphatic: Reports easy bleeding and easy bruising EXAM Physical Exam Const Vital Signs: 12/27/23 00:31 12/27/23 01:20 12/27/23 03:00 Temperature 99.4 F H Temperature Source Oral Pulse Rate 117 H 130 H 110 H Pulse Rate [1 (Initial Baseline)] Pulse Rate [4] Respiratory Rate 22 H 22 H Respiratory Rate [1 (Initial Baseline)] Respiratory Rate [4] Blood Pressure 165/100 H 143/92 H 152/105 H Blood Pressure [1 (Initial Baseline)] Blood Pressure [4] Blood Pressure Mean 121 109 120 Pulse Ox 96 96 Oxygen Delivery Method Room Air Room Air Oxygen Delivery Method [1 (Initial Baseline)] Oxygen Delivery Method [4] Oxygen Flow Rate (L/min) 12/27/23 03:31 12/27/23 03:40 12/27/23 03:42 Temperature Temperature Source Pulse Rate 103 H Pulse Rate [1 (Initial Baseline)] 103 H Pulse Rate [4] 91 Respiratory Rate 18 Respiratory Rate [1 (Initial Baseline)] 18 Respiratory Rate [4] 20 H Blood Pressure 164/98 H Blood Pressure [1 (Initial Baseline)] 164/98 H Blood Pressure [4] 136/88 H Blood Pressure Mean Pulse Ox 96 Oxygen Delivery Method Room Air Nasal Cannula Oxygen Delivery Method [1 (Initial Baseline)] Room Air Oxygen Delivery Method [4] Room Air Oxygen Flow Rate (L/min) 2 12/27/23 03:45 12/27/23 03:50 12/27/23 04:00 Temperature Temperature Source Pulse Rate Pulse Rate [1 (Initial Baseline)] Pulse Rate [4] Respiratory Rate Respiratory Rate [1 (Initial Baseline)] Respiratory Rate [4] Blood Pressure Blood Pressure [1 (Initial Baseline)] Blood Pressure [4] Blood Pressure Mean Pulse Ox Oxygen Delivery Method Nasal Cannula Room Air Room Air Oxygen Delivery Method [1 (Initial Baseline)] Oxygen Delivery Method [4] Oxygen Flow Rate (L/min) 2 12/27/23 05:00 12/27/23 06:31 Temperature 98.4 F Temperature Source Pulse Rate 79 81 Pulse Rate [1 (Initial Baseline)] Pulse Rate [4] Respiratory Rate 20 H 16 Respiratory Rate [1 (Initial Baseline)] Respiratory Rate [4] Blood Pressure 133/90 H 131/87 H Blood Pressure [1 (Initial Baseline)] Blood Pressure [4] Blood Pressure Mean 104 101 Pulse Ox 95 96 Oxygen Delivery Method Room Air Oxygen Delivery Method [1 (Initial Baseline)] Oxygen Delivery Method [4] Oxygen Flow Rate (L/min) Positive well nourished, well developed and obese General Appearance ED: well developed and pallor Nutritional Appearance: obese HEENT Reports dry mucous membranes HEENT Narrative: Mucous membranes are dry and tacky No tongue or lip swelling no oral lesions no airway edema or compromise No secondary findings in the posterior pharynx to suggest infection Mouth ED: Yes dry mucous membranes Mouth: dry mucous membranes Eyes PERRL and EOMs intact bilaterally Neck supple and no JVD Resp normal respiratory effort and clear to auscultation bilaterally Resp Narrative: Breath sounds are diminished throughout but overall clear to auscultation without signs of respiratory distress Cardio Rate: other Other Details: Irregularly irregular rhythm with tachycardic rate consistent with atrial fibrillation with RVR GI non-distended and no masses GI Narrative: Abdomen is soft and nondistended with normal active bowel sounds. There is pain with palpation in the midepigastric region without voluntary guarding or rigidity. No pulsatile mass noted Auscultation: normoactive bowel sounds Palpation: soft Extremity Extremity Narrative: +1 pitting edema to the bilateral lower extremities that is equal and symmetric Fistula noted in the right upper arm with palpable thrill and good bruit Neuro CN's II-XII intact bilaterally Neuro Narrative: Patient is at his baseline mental status without focal neurologic deficit Sensorium / Orientation: alert Psych Psych Narrative: Patient has a flat affect Skin no rashes or lesions noted General Skin Exam: pallor; Negative for jaundice MDM MDM MDM Narrative Medical decision making narrative: Patient arrived to the ER hypertensive and tachycardic. EKG was consistent with A-fib with RVR with rate related ischemic changes. The patient does have a history of this and is on metoprolol and Cardizem as well as Xarelto and therefore my concern for a pulmonary embolus is low. In order to rule out acute blood loss anemia acute kidney injury or electrolyte abnormality as the cause of his breakthrough A-fib basic labs were obtained. Patient's hemoglobin is low at 7.7 but this is his baseline upon chart review. Electrolytes do not show any clinically significant variations and creatinine is at baseline as well which is normal at 1.44. He was given 3 doses of IV Lopressor and an extra dose of his oral Lopressor and his heart rate reduced to approximately 85-100. At this time he has had improvement of his blood pressure and heart rate and his labs show variations but they are at his baseline. Secondary to the fact he is anticoagulated with a therapeutic INR I did feel that it would be appropriate to undergo a cardioversion at this time to ensure he is in sinus rhythm. The care was discussed with his sister who is his power of trademark attorney and she agrees to it. Therefore he was given a total of 20 mg of propofol 2.5 mg of Versed and underwent synchronized cardioversion at 100 J. 1 attempt was performed and he converted to sinus rhythm. Therefore at this time as patient has been converted from atrial fibrillation back to normal sinus rhythm and his workup shows that he is at his baseline laboratory values and therefore he is otherwise safe to return to the prison History & Record Review Discussion w/independent historian: EMS personnel, Patient and Family Lab Data Attestation: I reviewed the patient's lab results. Labs: Laboratory Results - last 24 hr 12/27/23 00:22 WBC 5.4 RBC 3.98 L Hgb 7.7 L Hct 26.6 L MCV 66.8 L MCH 19.3 L MCHC 28.9 L RDW Std Deviation 51.5 H RDW Coeff of Anil 21.9 H Plt Count 171 MPV TNP Immature Gran % (Auto) 0.600 Neut % (Auto) 52.5 Lymph % (Auto) 21.3 [place] % (Auto) 19.3 H Eos % (Auto) 5.7 H Baso % (Auto) 0.6 Absolute Neuts (auto) 2.9 Absolute Lymphs (auto) 1.16 Nucleated RBC % 0 Anisocytosis 1+ Microcytosis 1+ Ovalocytes RARE PT 32.5 H INR 3.2 APTT 45.2 H Sodium 142 Potassium 3.8 Chloride 115 H Carbon Dioxide 17.0 L Anion Gap 10 BUN 27 H Creatinine 1.44 H Estim Creat Clear Calc 72.46 Est GFR (MDRD) Af Amer 65 Est GFR (MDRD) Non-Af 54 L BUN/Creatinine Ratio 18.8 Glucose 102 Calcium 8.3 L Magnesium 1.3 L Total Bilirubin 1.30 H Direct Bilirubin 0.38 H AST 33 ALT 30 Alkaline Phosphatase 103 Total Protein 6.9 Albumin 3.1 L Globulin 3.8 Lipase 81 H TSH 1.680 Procedures Procedural Sedation 1 (Initial Baseline): Consent Signed: Yes Any Problems With Anesthesia: No You/Your family experience fever (hyperthermia) w/anesthesia: No Sedation medication: Versed Dose: 20 Route: IV Maliampati Score: Class III ASA Classification: III Comment:: Approximate total conscious sedation time of 10 minutes Critical Care Time Critical Care Time: Yes Critical care time (excluding procedures): Discussing w/Patient &/or Family/Medical Office Technologist, Performing Direct Patient Care at Bedside and - (Critical care time of 31 minutes) Discharge Plan Triage Chief Complaint: Palpitations ED Provider: Haja Savage Dx/Rx/DC Orders Clinical Impression: Paroxysmal atrial fibrillation with rapid ventricular response, Cirrhosis, History of kidney transplant, Debility, Hypertension, 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 of adjunct 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 for 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 anticoagulation, Chronic anemia Instructions: AFib Dc Prescriptions: No Action mycophenolate mofetil 500 MG tablet 500 mg PO BID multivitamin Tablet 1 tab PO DAILY lactulose 20 gram/30 mL solution 45 ml PO 4X/DAY Xifaxan 550 mg tablet 550 mg PO BID tacrolimus 0.5 mg capsule 0.5 mg PO BID mirtazapine 30 mg tablet 30 mg PO QHS diltiazem HCl [Cardizem LA] 120 mg tablet extended release 24 hr 120 mg PO DAILY Qty: 30 0RF metoprolol tartrate 25 mg Tablet 25 mg PO BID Qty: 0 0RF acetaminophen 325 mg tablet 650 mg PO Q4H PRN (Reason: fever or pain) allopurinol 100 mg tablet 100 mg PO DAILY guaifenesin [Adult Tussin Chest Congestion] 100 mg/5 mL liquid 200 mg PO Q4H PRN (Reason: cough) magnesium hydroxide [Milk of Magnesia] 400 mg/5 mL suspension 30 ml PO DAILY PRN (Reason: constipation) pantoprazole [Protonix] 40 mg tablet,delayed release (DR/EC) 40 mg PO DAILY Qty: 60 0RF atorvastatin 40 mg tablet 40 mg PO QHS Xarelto 20 mg tablet 20 mg PO DAILY 30 Days Qty: 30 0RF Rx Instructions: must administer with evening meal aspirin 81 mg capsule 81 mg PO DAILY 30 Days Qty: 30 0RF Primary Care Provider: Mike Bella Referrals: Mike Bella MD [Primary Care Provider] - Activity Restrictions/Additional Instructions: Please continue all of your home medications as previously directed and return to the ER should you have any further concerns Print Language: Venezuelan Disposition Disposition: Home, Self Care Discharge Date/Time: 12/27/23 06:32
--- NOTE | 2023-12-27 03:49 | ED.RN ---
Dr. Savage aware of end tidal CO2 during procedure. No new orders
== END 2023-12-27 06:32 | disposition home or self-care (01) ==
PROVIDERS: Emergency Provider Emergency Medicine; PCP Family Medicine; Visit Provider Emergency Medicine
DX: R00.2 Palpitations (principal); K74.60 Unspecified cirrhosis of liver; I48.0 Paroxysmal atrial fibrillation; N18.32 Chronic kidney disease, stage 3b; I12.9 Hypertensive chronic kidney disease with stage 1 through stage 4 chronic kidney disease, or unspecified chronic kidney disease; Z94.0 Kidney transplant status; R53.81 Other malaise; Z79.01 Long term (current) use of anticoagulants; D64.9 Anemia, unspecified; Z79.899 Other long term (current) drug therapy; I25.2 Old myocardial infarction; Z79.82 Long term (current) use of aspirin
CPT/HCPCS: 80048; 80076; 83690; 83735; 84443; 85025; 85610; 85730; 92960; 93005; 96361; 96374; 96375; 99285; J7030; J7040; A4216; J2405

== ENCOUNTER 2024-01-28 15:52 | Emergency (ER) | payer MEDICARE, SELFPAY ==
[2024-01-28] VITALS (14 sets, daily range): BP systolic 115–156; BP diastolic 70–91; PULSE 69–107; RESP 16–22; TEMP 36.6–36.7; O2SAT 93–97; BMI 32.8
--- NOTE | 2024-01-28 17:00 | ED.VIS.CHEST ---
HPI History of Present Illness Chief Complaint: Chest Pain Informant: patient Onset/Context/Timing Onset: Hours (1.5) Activity at onset: sudden Timing: Continuous Quality: Positive for Tightness Location: Substernal Worsened By: Nothing Relieved By: NSAIDS (Aspirin) Associated Symptoms: Positive for Cough, Lightheadedness and Palpitations; Negative for Nausea, Vomiting, Diaphoresis, Dyspnea, Fever or Acid Reflux Narrative Narrative: Patient presents with chest pain and palpitations that began approximately 1-1/2 hours prior to arrival. Patient states it began rather suddenly. Patient states it has been constant. Patient has a history of paroxysmal atrial fibrillation and states that he feels like he is back in atrial fibrillation again. EMS administered aspirin. Patient states this helped somewhat with his pain. Patient describes his pain as tightness. Patient states it is over the substernal area. Patient admits to a mild cough. Patient also admits to some lightheadedness. Patient denies any shortness of breath or diaphoresis. Patient denies any nausea or vomiting. [facility] Medical History Wears hearing aid in both ears Kidney disease Dialysis patient Anxiety and depression History of anemia History of chronic kidney disease History of deep vein thrombosis History of UT (myocardial infarction) Myocardial infarct History of encephalopathy History of pulmonary embolism History of DVT (deep vein thrombosis) Severe protein-calorie malnutrition Anemia in chronic illness Neutropenia Bladder dysfunction Immunosuppressed status Chronic kidney disease, stage 3b Pancytopenia HTN (hypertension) Mild intellectual disability Urinary retention Vocal cord dysfunction Bronchitis Pulmonary embolism CKD (chronic kidney disease), stage III Neurogenic bladder disorder DVT (deep venous thrombosis) Congenital nystagmus Home Medications ?Medication ?Instructions ?Recorded ?Last Taken ?Type mycophenolate mofetil 500 mg tablet 500 mg PO BID TRANSPLANT 07/14/16 01/26/23 History ANTI-REJECTION multivitamin 1 tab PO DAILY SUPPLEMENT 02/13/22 01/26/23 History lactulose 20 gram/30 mL oral 45 ml PO 4X/DAY hepatic failure 06/13/22 01/26/23 History solution rifaximin 550 mg tablet (Xifaxan) 550 mg PO BID ANTIBIOTIC 07/16/22 01/26/23 History mirtazapine 30 mg tablet 30 mg PO QHS DEPRESSION 11/01/22 01/25/23 History diltiazem HCl 120 mg 120 mg PO DAILY BLOOD PRESSURE #30 01/01/23 01/26/23 Rx tablet,extended release 24 hr tabs (Cardizem LA) metoprolol tartrate 25 mg tablet 25 mg PO BID BLOOD PRESSURE #0 tabs 01/01/23 01/26/23 Rx tacrolimus 0.5 mg capsule, 0.5 mg PO BID TRANSPLANT 01/15/23 01/26/23 History immediate-release ANTI-REJECTION atorvastatin 40 mg tablet 40 mg PO QHS hld 07/25/23 Unknown History aspirin 81 mg capsule 81 mg PO DAILY blood thinner 30 08/06/23 Unknown Rx days #30 caps rivaroxaban 20 mg tablet (Xarelto) 20 mg PO DAILY blood thinner 30 08/06/23 Unknown Rx days #30 tabs acetaminophen 325 mg tablet 650 mg PO Q4H PRN fever or pain 11/03/23 Unknown History allopurinol 100 mg tablet 100 mg PO DAILY URIC ACID LEVELS 11/03/23 Unknown History guaifenesin 100 mg/5 mL oral 200 mg PO Q4H PRN cough 11/03/23 Unknown History liquid (Adult Tussin Chest Congestion) magnesium hydroxide 400 mg/5 mL 30 ml PO DAILY PRN constipation 11/03/23 Unknown History oral suspension (Milk of Magnesia) pantoprazole 40 mg tablet,delayed 40 mg PO DAILY #60 tabs 11/09/23 Unknown Rx release (Protonix) amoxicillin 875 mg-potassium 875 mg PO Q12H #14 TABLETS 01/28/24 Unknown Rx clavulanate 125 mg tablet Allergy/AdvReac Type Severity Reaction Status Date / Time red dye Allergy Unknown unknown Verified 01/28/24 16:05 Family History Mother Hypertension Father Diabetes Surgical History Renal transplant recipient Kidney transplant recipient S/P arteriovenous (AV) fistula creation Social History household members: none housing: senior care Smoking Status: Never smoker second hand exposure: No alcohol intake: never substance use type: does not use caffeine: No ROS ROS ED Constitutional Constitutional ED: Denies chills or fever(s) Eyes Eyes: Denies blurry vision or change in vision ENT ENT ED: Denies rhinorrhea or sore throat Cardiovascular Cardiovascular: Reports as per HPI, chest pain and palpitations Respiratory/Chest Respiratory/Chest: Reports cough; Denies dyspnea Gastrointestinal Gastrointestinal: Denies nausea or vomiting Genitourinary Genitourinary ED: Reports hematuria; Denies dysuria Musculoskeletal Musculoskeletal: Denies back pain or neck pain Integumentary Denies abscess or rash Neurologic Neurologic: Reports weakness; Denies headache(s) Allergic/Immunologic Allergic/Immunologic ED: Denies mouth swelling or urticaria EXAM Physical Exam Const Vital Signs: 01/28/24 16:00 01/28/24 16:05 01/28/24 17:00 Temperature 98 F Temperature Source Oral Pulse Rate 73 85 Pulse Rate [1 (Initial Baseline)] Pulse Rate [2] Respiratory Rate 16 20 H Respiratory Rate [1 (Initial Baseline)] Respiratory Rate [2] Respiratory Effort Normal Non-Labored Blood Pressure 115/72 148/83 H Blood Pressure [1 (Initial Baseline)] Blood Pressure [2] Blood Pressure Mean 86 104 Pulse Ox 93 96 Oxygen Delivery Method Room Air Oxygen Delivery Method [1 (Initial Baseline)] Oxygen Delivery Method [2] Oxygen Flow Rate (L/min) [1 (Initial Baseline)] Oxygen Flow Rate (L/min) [2] Fraction of Inspired Oxygen (FIO2) [2] EtCo2 (Normal 35-45 , high quality CPR 10-20 & ROSC>/=40mmHg EtCo2 (Normal 35-45 , high quality CPR 10-20 & ROSC>/=40mmHg [1 (Initial Baseline)] EtCo2 (Normal 35-45 , high quality CPR 10-20 & ROSC>/=40mmHg [2] 01/28/24 17:12 01/28/24 18:00 01/28/24 19:00 Temperature Temperature Source Pulse Rate 69 82 Pulse Rate [1 (Initial Baseline)] Pulse Rate [2] Respiratory Rate 18 20 H Respiratory Rate [1 (Initial Baseline)] Respiratory Rate [2] Respiratory Effort Blood Pressure 124/73 H 115/71 Blood Pressure [1 (Initial Baseline)] Blood Pressure [2] Blood Pressure Mean 90 85 Pulse Ox 96 95 Oxygen Delivery Method Room Air Room Air Oxygen Delivery Method [1 (Initial Baseline)] Oxygen Delivery Method [2] Oxygen Flow Rate (L/min) [1 (Initial Baseline)] Oxygen Flow Rate (L/min) [2] Fraction of Inspired Oxygen (FIO2) [2] EtCo2 (Normal 35-45 , high quality CPR 10-20 & ROSC>/=40mmHg EtCo2 (Normal 35-45 , high quality CPR 10-20 & ROSC>/=40mmHg [1 (Initial Baseline)] EtCo2 (Normal 35-45 , high quality CPR 10-20 & ROSC>/=40mmHg [2] 01/28/24 20:00 01/28/24 20:27 01/28/24 21:00 Temperature Temperature Source Pulse Rate 78 95 Pulse Rate [1 (Initial Baseline)] Pulse Rate [2] Respiratory Rate 20 H 22 H Respiratory Rate [1 (Initial Baseline)] Respiratory Rate [2] Respiratory Effort Blood Pressure 156/77 H 134/86 H Blood Pressure [1 (Initial Baseline)] Blood Pressure [2] Blood Pressure Mean 103 102 Pulse Ox 97 96 Oxygen Delivery Method Room Air Room Air Oxygen Delivery Method [1 (Initial Baseline)] Oxygen Delivery Method [2] Oxygen Flow Rate (L/min) [1 (Initial Baseline)] Oxygen Flow Rate (L/min) [2] Fraction of Inspired Oxygen (FIO2) [2] EtCo2 (Normal 35-45 , high quality CPR 10-20 & ROSC>/=40mmHg 35 EtCo2 (Normal 35-45 , high quality CPR 10-20 & ROSC>/=40mmHg [1 (Initial Baseline)] EtCo2 (Normal 35-45 , high quality CPR 10-20 & ROSC>/=40mmHg [2] 01/28/24 22:00 01/28/24 22:20 01/28/24 22:21 Temperature 98.0 F Temperature Source Pulse Rate 82 106 H Pulse Rate [1 (Initial Baseline)] 107 H Pulse Rate [2] 102 H Respiratory Rate 20 H 16 Respiratory Rate [1 (Initial Baseline)] 16 Respiratory Rate [2] 17 Respiratory Effort Blood Pressure 140/78 H 155/70 H Blood Pressure [1 (Initial Baseline)] 124/84 H Blood Pressure [2] 136/85 H Blood Pressure Mean 98 Pulse Ox 94 96 Oxygen Delivery Method Room Air Room Air Oxygen Delivery Method [1 (Initial Baseline)] Nasal Cannula Oxygen Delivery Method [2] Nasal Cannula Oxygen Flow Rate (L/min) [1 (Initial Baseline)] 2 Oxygen Flow Rate (L/min) [2] 2 Fraction of Inspired Oxygen (FIO2) [2] 2 EtCo2 (Normal 35-45 , high quality CPR 10-20 & ROSC>/=40mmHg EtCo2 (Normal 35-45 , high quality CPR 10-20 & ROSC>/=40mmHg [1 (Initial Baseline)] 35 EtCo2 (Normal 35-45 , high quality CPR 10-20 & ROSC>/=40mmHg [2] 35 01/28/24 22:30 01/28/24 22:35 01/28/24 22:40 Temperature Temperature Source Pulse Rate Pulse Rate [1 (Initial Baseline)] Pulse Rate [2] Respiratory Rate Respiratory Rate [1 (Initial Baseline)] Respiratory Rate [2] Respiratory Effort Blood Pressure Blood Pressure [1 (Initial Baseline)] Blood Pressure [2] Blood Pressure Mean Pulse Ox Oxygen Delivery Method Room Air Room Air Room Air Oxygen Delivery Method [1 (Initial Baseline)] Oxygen Delivery Method [2] Oxygen Flow Rate (L/min) [1 (Initial Baseline)] Oxygen Flow Rate (L/min) [2] Fraction of Inspired Oxygen (FIO2) [2] EtCo2 (Normal 35-45 , high quality CPR 10-20 & ROSC>/=40mmHg 35 35 EtCo2 (Normal 35-45 , high quality CPR 10-20 & ROSC>/=40mmHg [1 (Initial Baseline)] EtCo2 (Normal 35-45 , high quality CPR 10-20 & ROSC>/=40mmHg [2] Positive well nourished and well developed General Appearance ED: well developed and NAD HEENT Reports moist mucous membranes normocephalic and atraumatic Neck supple and no JVD Resp normal respiratory effort and clear to auscultation bilaterally Cardio regular rate Rhythm: abnormal rhythm irregularly irregular GI soft to palpation, non-tender and non-distended Neuro oriented x3, CN's II-XII intact bilaterally, no sensory deficits noted and gait normal Sensorium / Orientation: awake and alert Motor Exam: strength 5/5 throughout Psych mental status grossly normal Heart Score History: Slightly/Non-Suspicious ECG: Normal Age: >45 - <65 years Risk Factors: >/= 3 Risk Factors or History of CAD Score: 3 MDM MDM MDM Narrative Medical decision making narrative: Differential diagnosis includes cardiac dysrhythmia, cardiac ischemia, pneumonia, pneumothorax, electrolyte abnormality, and gastroesophageal reflux disease. EKG will be obtained to assess for cardiac dysrhythmia and cardiac ischemia. Chest x-ray will be obtained to assess for pneumonia and pneumothorax. CBC will be obtained to assess for leukocytosis and anemia. Basic metabolic profile will be obtained to assess for electrolyte abnormality and renal function. High-sensitivity troponin will be obtained to assess for cardiac ischemia. 2-hour repeat high-sensitivity troponin will be obtained to assess for ongoing cardiac ischemia. Lab Data Attestation: I reviewed the patient's lab results. Lab results narrative: CBC was reviewed. There is a low hemoglobin of 7.3 and hematocrit of 26.9. This is consistent with previous results. PT with INR and PTT were reviewed. Pro time was 23.4 and INR is therapeutic at 2.1. PTT was mildly elevated at 41.7. Basic metabolic profile was reviewed. CO2 was slightly low at 17. BUN was 28 and creatinine was 1.97. These are consistent with prior results. Initial hide severe troponin was reviewed and was normal at 22. 2-hour repeat high-sensitivity troponin was reviewed and was normal at 20. Urinalysis was reviewed. Leukocyte esterase was 500 with 50-100 white blood cells and 25-50 red blood cells. There is 3+ bacteria. Labs: Laboratory Results - last 24 hr 01/28/24 01/28/24 01/28/24 15:42 19:02 19:33 WBC 5.8 RBC 3.93 L Hgb 7.3 L Hct 26.9 L MCV 68.4 L MCH 18.6 L MCHC 27.1 L RDW Std Deviation 55.3 H RDW Coeff of Anil 23.4 H Plt Count 175 MPV TNP Immature Gran % (Auto) 0.300 Neut % (Auto) 60.9 Lymph % (Auto) 12.9 L [place] % (Auto) 21.7 H Eos % (Auto) 3.5 Baso % (Auto) 0.7 Absolute Neuts (auto) 3.5 Absolute Lymphs (auto) 0.74 L Nucleated RBC % 0.3 Platelet Estimate ADEQUATE RBC Morphology N CHROM Hypochromasia 1+ Anisocytosis 1+ Microcytosis 1+ Tear Drop Cells RARE Ovalocytes RARE PT 23.4 H INR 2.1 APTT 41.7 H Sodium 141 Potassium 4.6 Chloride 117 H Carbon Dioxide 17.0 L Anion Gap 7 BUN 28 H Creatinine 1.97 H Estim Creat Clear Calc 53.54 Est GFR (MDRD) Af Amer 45 L Est GFR (MDRD) Non-Af 38 L BUN/Creatinine Ratio 14.2 Glucose 107 H Calcium 8.6 Troponin I High Sens 22 20 Urine Color [place] Urine Clarity Cloudy Urine pH 5.0 Ur Specific Rodney 1.020 Urine Protein 100 H Urine Glucose (UA) Normal Urine Ketones Negative Urine Occult Blood 250 H Urine Nitrite Negative Urine Bilirubin Negative Urine Urobilinogen Normal Ur Leukocyte Esterase 500 H Urine RBC 25-50 SEEN Urine WBC 50-100 SEEN Ur Squamous Epith Cells 0-5 SEEN Ur Transition Epith Cell 0-5 SEEN Amorphous Sediment 1+ Urine Bacteria 3+ WBC Casts 0-5 SEEN Urine Mucus 1+ Radiography Diagnostic Testing: Clinical Impression(s) from Imaging Studies Chest X-Ray 01/28/24 17:42 IMPRESSION: 1. Stable borderline cardiomegaly. There is vascular congestion without carlos interstitial edema. 2. Interstitial prominence at the lung bases greater on LEFT than RIGHT and superimposed interstitial infiltrate is a consideration. Subtle interstitial infiltrate in the RIGHT suprahilar region also noted. Electronically Signed: Sulaiman Dowd MD at 18:10 EDT , Portable 1 view chest x-ray was obtained. On my independent interpretation, lung trevizo show vascular congestion but no interstitial edema. There is subtle interstitial infiltrate in the right suprahilar region. There is borderline cardiomegaly. Bony thorax is normal. There is no acute process noted. Radiologist also interpreted the x-ray and agrees. EKG Initial EKG: Attestation: I personally reviewed and interpreted this EKG as follows: Interpretation: No Acute Injury Pattern and Atrial Fibrillation (79) Comments: EKG was obtained. On my independent interpretation, shows atrial fibrillation with a rate of 79. QRS interval was normal at 86 ms. QTc interval was slightly prolonged at 481 ms. Calypso was normal. There are no acute ST or T wave changes noted. Prior EKG tracings: available for review Prior: Unchanged (12/27/2023) Follow-up EKG: Attestation: I personally reviewed and interpreted this EKG as follows: Interpretation: Sinus Rhythm (83) Comments: EKG was obtained. On my independent interpretation, shows normal sinus rhythm with a rate of 83. NC interval was normal at 164 ms. QRS interval was normal at 94 ms. QTc interval slightly prolonged at 500 ms. Calypso was normal. There are no acute ST or T wave changes. There are some nonspecific changes. This was unchanged compared to previous EKG. Prior EKG tracings: available for review Prior: Unchanged Additional Tests and Interventions Additional Tests or Interventions: Urine culture was obtained. Treatment and Re-Evaluation :: Patient was given a dose of Cardizem here. Patient and sister were advised that the patient would need to be cardioverted if the Cardizem does not convert into a sinus rhythm. Patient remained in atrial fibrillation. Sister states that the patient has had cardioversion before. She and the patient are agreeable with sedation and cardioversion. Informed consent was obtained. Patient was placed on continuous cardiac and pulse oximeter monitors. Patient was placed on the defibrillation/cardioversion pads. Patient was given 70 mg of propofol. After adequate sedation, the patient was cardioverted with 100 J. Patient converted to a normal sinus rhythm. Patient tolerated procedure well. There were no hypoxic episodes. There are no hypercapnic episodes. Repeat EKG will be obtained. Patient will be discharged home. Patient was given a prescription for Augmentin for his urinary tract infection and possible pneumonia. Patient was instructed to follow-up with his primary care physician in 5 to 7 days. Patient was instructed return if worse in any way. Patient and family understood and were agreeable with the plan. All questions were answered. Discharge Plan Triage Chief Complaint: Chest Pain ED Provider: Ambrosio Munguia Dx/Rx/DC Orders Clinical Impression: Atrial fibrillation, Acute UTI Instructions: ED AFIB, ED Bladder Infection, Male (Adult) Prescriptions: New amoxicillin-pot clavulanate 875-125 mg tablet 875 mg PO Q12H Qty: 14 0RF No Action mycophenolate mofetil 500 MG tablet 500 mg PO BID multivitamin Tablet 1 tab PO DAILY lactulose 20 gram/30 mL solution 45 ml PO 4X/DAY Xifaxan 550 mg tablet 550 mg PO BID tacrolimus 0.5 mg capsule 0.5 mg PO BID mirtazapine 30 mg tablet 30 mg PO QHS diltiazem HCl [Cardizem LA] 120 mg tablet extended release 24 hr 120 mg PO DAILY Qty: 30 0RF metoprolol tartrate 25 mg Tablet 25 mg PO BID Qty: 0 0RF acetaminophen 325 mg tablet 650 mg PO Q4H PRN (Reason: fever or pain) allopurinol 100 mg tablet 100 mg PO DAILY guaifenesin [Adult Tussin Chest Congestion] 100 mg/5 mL liquid 200 mg PO Q4H PRN (Reason: cough) magnesium hydroxide [Milk of Magnesia] 400 mg/5 mL suspension 30 ml PO DAILY PRN (Reason: constipation) pantoprazole [Protonix] 40 mg tablet,delayed release (DR/EC) 40 mg PO DAILY Qty: 60 0RF atorvastatin 40 mg tablet 40 mg PO QHS Xarelto 20 mg tablet 20 mg PO DAILY 30 Days Qty: 30 0RF Rx Instructions: must administer with evening meal aspirin 81 mg capsule 81 mg PO DAILY 30 Days Qty: 30 0RF Primary Care Provider: Mike Bella Referrals: Mike Bella MD [Primary Care Provider] - 5-7 Days Print Language: Wolof Disposition Disposition: Home, Self Care
--- NOTE | 2024-01-28 17:11 | EKG12_ITS ---
Test Reason : CP Blood Pressure : / mmHG Vent. Rate : 079 BPM Atrial Rate : 000 BPM P-R Int : 000 ms QRS Dur : 086 ms QT Int : 420 ms P-R-T Axes : 000 046 063 degrees QTc Int : 481 ms Atrial fibrillation with a competing junctional pacemaker Prolonged QT Abnormal ECG Confirmed by SUSAN MORENO, RAEANN ([id number]), graphics editor CARLOS GARCIA ([id number]) on 02/01/2024 1:46:35 PM Referred By: Confirmed By:RAEANN DAVIS MD
[2024-01-28 17:24] LABS: Absolute Lymphocyte Count 0.74 X10^3/uL (0.83-4.51); Absolute Neutrophil Count 3.5 X10^3/uL (2.0-7.7); Basophil# 0.04 X10^3/uL; Basophil% 0.7 % (0-1); Eosinophils% 3.5 % (0-5); Hematocrit 26.9 % (40-54); Hemoglobin 7.3 g/dL (13.0-16.5); Lymphocyte # 0.74 X10^3/ul (0.83-4.51); Lymphocyte % 12.9 % (19-41); Mean Corp Hgb Conc 27.1 g/dL (32-36); Mean Corpuscular Hgb 18.6 pg (27.0-32.0); Mean Corpuscular Volume 68.4 fL (80-94); Monocyte# 1.25 X10^3/uL; Monocyte% 21.7 % (0-10); NRBC Flagged by Analyzer 0.3 % (0-5); Neutrophil % 60.9 % (47-70); POSITIVE MORPHOLOGY YES; Platelet Count 175 K/mm3 (150-450); RBC Distribution Width CV 23.4 % (11.6-14.6); RBC Distribution Width SD 55.3 fl (35.1-43.9); Red Blood Count 3.93 M/mm3 (4.6-6.2); White Blood Count 5.8 K/mm3 (4.4-11.0)
[2024-01-28 17:27] LABS: Differential Indicated SCAN CRITERIA MET
[2024-01-28] MEDS: dilTIAZem 25 MG/5 ML Vial IV BOLUS (17:34)
[2024-01-28 17:36] LABS: International Normalized Ratio 2.1; Partial Thromboplast Time 41.7 Seconds (24.1-36.2); Prothrombin Time (Protime)PT. 23.4 SECONDS (11.7-14.9)
[2024-01-28 17:39] LABS: Anion Gap 7 (5-15); BUN 28 mg/dL (7-18); BUN/Creat Ratio 14.2 RATIO (10-20); Calcium,Total 8.6 mg/dL (8.5-10.1); Chloride 117 mmol/L (98-107); Creatinine, Serum 1.97 mg/dL (0.70-1.30); EST Glomerular Filtration Rate 38 mL/min (>60); Est Glom Filt Rate - Afr Amer 45 mL/min (>60); Estimated Creatinine Clearance 53.54 ml/min; Glucose 107 mg/dL (74-106); Potassium 4.6 mmol/L (3.5-5.1); Sodium Level 141 mmol/L (136-145); Troponin-I HS (w/2H Reflex) 22 pg/mL (3.0-78.0)
--- NOTE | 2024-01-28 17:42 | RAD_ITS ---
INDICATION: COUGH EXAMINATION/TECHNIQUE: X-RAY - XR Chest 1 View COMPARISON: 11/03/2023, and a CT of 07/25/2023 FINDINGS:
[2024-01-28 17:58] LABS: Anisocytosis 1+; Hypochromasia 1+; Microcytosis 1+; Ovalocyte RARE; Platelet Estimate ADEQUATE (ADEQ); Red Cell Morphology N CHROM NORMAL (NORM C&C); Tear Drop Cell RARE
[2024-01-28 19:17] LABS: Reflex Troponin-HS? (from REC) Y
[2024-01-28 19:19] LABS: Color, Urine Amber (Yellow); Glucose, Dipstick Normal (Normal); Ketone-Dipstick Negative (Negative); Leukocyte Esterase-Dipstick 500 /ul (Negative); Nitrite-Dipstick Negative (Negative); Occult Blood-Urine 250 /ul (Negative); Protein-Dipstick 100 mg/dl (Negative); Urine Bilirubin Dipstick Negative (Negative); Urine Clarity Cloudy (Clear); Urine Urobilinogen Normal (Normal)
[2024-01-28 19:29] LABS: Bacteria 3+ /hpf (None Seen); Red Blood Cells-Urine 25-50 SEEN /hpf (0-5); Squamous Epithelial Cells - UA 0-5 SEEN /hpf (0-5); Transitional Epithelial - Ur 0-5 SEEN /hpf (0-5); White Blood Cells 50-100 SEEN /hpf (0-5)
[2024-01-28 19:30] LABS: Amorphous Sediment 1+; Mucous, Urine 1+ /hpf (<or=2+); White Cell Cast 0-5 SEEN /lpf (None Seen)
[2024-01-28 20:17] LABS: Troponin-I HS 20 pg/mL (3.0-78.0)
[2024-01-28] MEDS: Ceftriaxone 1 GM/50 ML BAG IV (21:06)
--- NOTE | 2024-01-28 21:13 | ED.RN ---
2049 explained to the pt about cardioversion and he stated it was explained to him earlier,but he does not want the cardioversion.
--- NOTE | 2024-01-28 21:14 | ED.RN ---
2054 Dr Munguia made aware that the pt is refusing the cardioversion, advised this nurse to call the pt's sister--Vikki.
--- NOTE | 2024-01-28 21:15 | ED.RN ---
2057 Spoke with pt's sister,Chandrakant and made him aware that the pt is refusing the cardioversion. Chandrakant stated to tell the pt that,We discussed this earlier and we are ok for the conversion. Did then spoke with the pt and discussed with the pt what his sister said,and the pt said,I'm ok with the antiobiotic treatment,but don't want my chest shocked. Pt kept re-iterating that he does not want the cardioversion done. made aware and he said pt would to stay on blood thinnrer then.
--- NOTE | 2024-01-28 21:24 | ED.RN ---
pt's sister updated on plan of care.
[2024-01-28] MEDS: Azithromycin 500 MG in Dextrose 5%-Water (250mL Bag) 250 ML 250 MG IV (21:48)
[2024-01-28] MEDS: Propofol 200 MG/20 ML Vial IV BOLUS (22:21)
--- NOTE | 2024-01-28 22:32 | EKG12_ITS ---
Test Reason : REPEAT Blood Pressure : / mmHG Vent. Rate : 083 BPM Atrial Rate : 083 BPM P-R Int : 164 ms QRS Dur : 094 ms QT Int : 426 ms P-R-T Axes : 067 026 066 degrees QTc Int : 500 ms Normal sinus rhythm Nonspecific T wave abnormality Abnormal ECG Confirmed by SUSAN MORENO, RAEANN ([id number]), editor school photograph KETURAH MOSLEY ([id number]) on 02/01/2024 2:05:16 PM Referred By: Confirmed By:RAEANN DAVIS MD
--- NOTE | 2024-01-28 23:15 | ED.RN ---
sister updated that pt is going back to [facility].
--- NOTE | 2024-01-28 23:16 | ED.RN ---
[facility] updated on plan of care for the pt.
--- NOTE | 2024-01-28 23:35 | NURSING ---
First attempt with quick catheter was unsuccessful. Resistance was met upon insertion and the catheter was removed. Followed up 15 minutes later with another quick catheter kit and a coude was inserted. Resistance was still present but the insertion was successful. Pts bladder was emptied and pt was left with his call light within reach. 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
[2024-01-29] VITALS: BP 146/59; PULSE 86; RESP 20; O2SAT 93
[2024-01-29 01:00] VITALS: BP 153/83; PULSE 87; RESP 20; O2SAT 96
[2024-01-29 02:00] VITALS: BP 143/77; PULSE 89; RESP 16; O2SAT 93
[2024-01-29 03:00] VITALS: BP 153/75; PULSE 90; RESP 19; O2SAT 93
[2024-01-29] MEDS: Ondansetron 4 MG/2 ML Vial IV (03:17)
[2024-01-29] MEDS: Morphine 4 MG/ML Syringe IV (03:17)
[2024-01-29 04:00] VITALS: BP 134/78; PULSE 91; RESP 19; O2SAT 93
[2024-01-29 05:00] VITALS: BP 134/70; PULSE 71; RESP 18; O2SAT 93
== END 2024-01-29 05:45 | disposition home or self-care (01) ==
PROVIDERS: Emergency Provider Emergency Medicine; PCP Family Medicine; Visit Provider Emergency Medicine
DX: R07.9 Chest pain, unspecified (principal); I48.0 Paroxysmal atrial fibrillation; N18.32 Chronic kidney disease, stage 3b; N39.0 Urinary tract infection, site not specified; I12.9 Hypertensive chronic kidney disease with stage 1 through stage 4 chronic kidney disease, or unspecified chronic kidney disease; I25.2 Old myocardial infarction; Z79.899 Other long term (current) drug therapy; Z79.82 Long term (current) use of aspirin
CPT/HCPCS: 71045; 80048; 81001; 84484; 85025; 85610; 85730; 87077; 87086; 87088; 87186; 92960; 93005; 96365; 96368; 96375; 99285; P9612; A4216; J2405

== ENCOUNTER 2024-02-04 17:09 | Emergency (ER) | payer MEDICARE, SELFPAY ==
[2024-02-04 17:09] VITALS: BP 146/91; PULSE 121; RESP 16; TEMP 37; O2SAT 98
[2024-02-04 17:58] LABS: Absolute Lymphocyte Count 1.04 X10^3/uL (0.83-4.51); Absolute Neutrophil Count 3.1 X10^3/uL (2.0-7.7); Basophil# 0.04 X10^3/uL; Basophil% 0.8 % (0-1); Eosinophil# 0.18 X10^3/uL; Eosinophils% 3.5 % (0-5); Hematocrit 26.3 % (40-54); Hemoglobin 7.1 g/dL (13.0-16.5); Lymphocyte # 1.04 X10^3/ul (0.83-4.51); Mean Corpuscular Hgb 18.3 pg (27.0-32.0); Monocyte# 0.78 X10^3/uL; NRBC Flagged by Analyzer 0.4 % (0-5); Neutrophil # 3.14 X10^3/uL (2.7-7.7); Neutrophil % 60.3 % (47-70); POSITIVE MORPHOLOGY YES; Platelet Count 191 K/mm3 (150-450); RBC Distribution Width CV 23.2 % (11.6-14.6); RBC Distribution Width SD 54.7 fl (35.1-43.9); Red Blood Count 3.87 M/mm3 (4.6-6.2); White Blood Count 5.2 K/mm3 (4.4-11.0)
[2024-02-04 18:00] LABS: Differential Indicated SCAN CRITERIA MET
[2024-02-04 18:14] LABS: ALB/GLOB Ratio 0.8 RATIO (0.9-2.4); AST(SGOT) 31 U/L (15-37); Alanine Aminotransfer ALT/SGPT 28 U/L (16-61); Albumin, Serum 3.2 g/dL (3.2-5.0); Alkaline Phosphatase 110 U/L (45-117); Anion Gap 6 (5-15); BUN 27 mg/dL (7-18); BUN/Creat Ratio 15.4 RATIO (10-20); Calcium,Total 8.2 mg/dL (8.5-10.1); Chloride 117 mmol/L (98-107); Creatinine, Serum 1.75 mg/dL (0.70-1.30); EST Glomerular Filtration Rate 43 mL/min (>60); Est Glom Filt Rate - Afr Amer 52 mL/min (>60); Globulin 3.8 g/dL (2.2-4.2); Glucose 106 mg/dL (74-106); Potassium 4.4 mmol/L (3.5-5.1); Sodium Level 142 mmol/L (136-145)
--- NOTE | 2024-02-04 18:21 | CT_ITS ---
EXAM: CT ABDOMEN AND PELVIS WITHOUT INTRAVENOUS CONTRAST CLINICAL INDICATION: Pain central TECHNIQUE: Helically acquired images were obtained of the abdomen and pelvis without intravenous contrast. This CT exam was performed using one or more of the following dose reduction techniques: automated exposure control, adjustment of the mA and/or kV according to patient size, and/or use of iterative reconstruction technique. COMPARISON: 01/26/2023. FINDINGS: LOWER THORAX: Unremarkable. Lung bases are clear. No cardiomegaly. No significant pericardial effusion. ABDOMEN: LIVER: 2.5 cm exophytic low-attenuation lesion arising from the right lobe of the liver, not characterized without contrast. GALLBLADDER AND BILE DUCTS: Small layering stones in the gallbladder. No gallbladder distention or wall edema. No intra- or extrahepatic biliary ductal dilation. PANCREAS: Unremarkable. No focal cystic mass. SPLEEN: Unremarkable. Normal size without focal cystic or solid mass. ADRENALS: Unremarkable. No nodules. KIDNEYS AND URETERS: Atrophic kidneys. Low-attenuation renal lesions measure up to 2.6 cm. No stones. Right hydroureteronephrosis with transition in the proximal ureter. No demonstrated stone. Transplant kidney in the right iliac fossa. No stones or hydronephrosis. STOMACH AND BOWEL: Unremarkable. No stomach or bowel distention. No focal inflammatory change. PELVIS: APPENDIX: No evidence of acute appendicitis. BLADDER: Unremarkable. REPRODUCTIVE: Unremarkable as visualized. No mass. ABDOMEN and PELVIS: INTRAPERITONEAL SPACE: No ascites or other fluid collection. No free air. BONES/JOINTS: Unremarkable. No suspicious lytic or blastic abnormality. SOFT TISSUES: Small left inguinal hernia contains a 1.7 cm nodule or lymph node. VASCULATURE: Splenorenal varices. LYMPH NODES: See above. CT/Abdomen/Pelvis without Cont IMPRESSION: 1. Mild right hydroureteronephrosis. 2. Cholelithiasis. 3. Renal and hepatic cysts. Follow-up is not indicated per ACR guidelines. 4. Splenorenal varices suggest portal hypertension. 5. Nodule or lymph node in a small left inguinal hernia. Electronically Signed: Mariela Gao MD at 20:32 EDT Reading Location ID and State: [id number] / Tel , Service support ,
--- NOTE | 2024-02-04 18:22 | EKG12_ITS ---
Test Reason : Blood Pressure : / mmHG Vent. Rate : 122 BPM Atrial Rate : 244 BPM P-R Int : 000 ms QRS Dur : 088 ms QT Int : 314 ms P-R-T Axes : 061 003 063 degrees QTc Int : 447 [address] TACH Nonspecific [address] abnormality Abnormal ECG Confirmed by RAEANN DAVIS MD ([id number]), newspaper editor CARLOS GARCIA ([id number]) on 02/08/2024 9:56:21 AM Referred By: Confirmed By:RAEANN DAVIS MD
[2024-02-04 18:25] LABS: Anisocytosis 2+; Crenated RBC RARE; Differential Comment SCANNED; Hypochromasia 2+; Ovalocyte 1+
[2024-02-04 18:26] LABS: Polychromasia RARE; Schistocytes RARE
--- NOTE | 2024-02-04 18:35 | ED.VIS.GI ---
HPI HPI - GI History of Present Illness Chief Complaint: Abd Pain Informant: patient, family (Sister) and EMS Limited: other (due to chronic mental disability according to pt's sister) Narrative Narrative: 58-year-old male presenting for 5 or 6 hours worth of supraumbilical abdominal pain and distention. Nausea but no vomiting. Some diarrhea recently, I saw a trace of blood in it today. He denies melena. Self caths and make small amounts of urine is a dialysis patient, and is anticoagulated for history of A-fib. He occasionally sees blood when he self caths, nothing major there today. Denies any known fevers. No new pains in his back or chest. He denies feeling palpitations or dyspnea. Sister states that the nurse at the [facility] was concerned he may be in A-fib because his heart rate was 117. He has been in A-fib off and on recently apparently. It is unknown what symptoms he usually has with it or if he has permanent A-fib versus paroxysmal. [facility] Medical History Wears hearing aid in both ears Kidney disease Dialysis patient Anxiety and depression History of anemia History of chronic kidney disease History of deep vein thrombosis History of ID (myocardial infarction) Myocardial infarct History of encephalopathy History of pulmonary embolism History of DVT (deep vein thrombosis) Severe protein-calorie malnutrition Anemia in chronic illness Neutropenia Bladder dysfunction Immunosuppressed status Chronic kidney disease, stage 3b Pancytopenia HTN (hypertension) Mild intellectual disability Urinary retention Vocal cord dysfunction Bronchitis Pulmonary embolism CKD (chronic kidney disease), stage III Neurogenic bladder disorder DVT (deep venous thrombosis) Congenital nystagmus Home Medications ?Medication ?Instructions ?Recorded ?Last Taken ?Type mycophenolate mofetil 500 mg tablet 500 mg PO BID TRANSPLANT 07/14/16 01/26/23 History ANTI-REJECTION multivitamin 1 tab PO DAILY SUPPLEMENT 02/13/22 01/26/23 History lactulose 20 gram/30 mL oral 45 ml PO 4X/DAY hepatic failure 06/13/22 01/26/23 History solution rifaximin 550 mg tablet (Xifaxan) 550 mg PO BID ANTIBIOTIC 07/16/22 01/26/23 History mirtazapine 30 mg tablet 30 mg PO QHS DEPRESSION 11/01/22 01/25/23 History diltiazem HCl 120 mg 120 mg PO DAILY BLOOD PRESSURE #30 01/01/23 01/26/23 Rx tablet,extended release 24 hr tabs (Cardizem LA) metoprolol tartrate 25 mg tablet 25 mg PO BID BLOOD PRESSURE #0 tabs 01/01/23 01/26/23 Rx tacrolimus 0.5 mg capsule, 0.5 mg PO BID TRANSPLANT 01/15/23 01/26/23 History immediate-release ANTI-REJECTION atorvastatin 40 mg tablet 40 mg PO QHS hld 07/25/23 Unknown History aspirin 81 mg capsule 81 mg PO DAILY blood thinner 30 08/06/23 Unknown Rx days #30 caps rivaroxaban 20 mg tablet (Xarelto) 20 mg PO DAILY blood thinner 30 08/06/23 Unknown Rx days #30 tabs acetaminophen 325 mg tablet 650 mg PO Q4H PRN fever or pain 11/03/23 Unknown History allopurinol 100 mg tablet 100 mg PO DAILY URIC ACID LEVELS 11/03/23 Unknown History guaifenesin 100 mg/5 mL oral 200 mg PO Q4H PRN cough 11/03/23 Unknown History liquid (Adult Tussin Chest Congestion) magnesium hydroxide 400 mg/5 mL 30 ml PO DAILY PRN constipation 11/03/23 Unknown History oral suspension (Milk of Magnesia) pantoprazole 40 mg tablet,delayed 40 mg PO DAILY #60 tabs 11/09/23 Unknown Rx release (Protonix) amoxicillin 875 mg-potassium 875 mg PO Q12H #14 TABLETS 01/28/24 Unknown Rx clavulanate 125 mg tablet Allergy/AdvReac Type Severity Reaction Status Date / Time red dye Allergy Unknown unknown Verified 02/04/24 17:12 Family History Mother Hypertension Father Diabetes Surgical History Renal transplant recipient Kidney transplant recipient S/P arteriovenous (AV) fistula creation Social History household members: none housing: [facility] Smoking Status: Never smoker second hand exposure: No alcohol intake: never substance use type: does not use caffeine: No ROS ROS ED Constitutional Constitutional ED: Denies chills or fever(s) Eyes Eyes: Denies change in vision or diplopia ENT ENT ED: Denies rhinorrhea or sore throat Cardiovascular Cardiovascular: Denies chest pain or palpitations Respiratory/Chest Respiratory/Chest: Denies cough or dyspnea Gastrointestinal Gastrointestinal: Reports abdominal pain, diarrhea, hematochezia and nausea; Denies melena or vomiting Genitourinary Genitourinary ED: Denies dysuria or hematuria Musculoskeletal Musculoskeletal: Denies back pain or neck pain Integumentary Denies abscess or rash Neurologic Neurologic: Denies headache(s) EXAM Physical Exam Const Vital Signs: 02/04/24 17:09 02/04/24 19:09 Temperature 98.6 F Temperature Source Oral Pulse Rate 121 H 123 H Respiratory Rate 16 20 H Blood Pressure 146/91 H 141/92 H Blood Pressure Mean 109 108 Pulse Ox 98 92 Oxygen Delivery Method Room Air Room Air Positive well nourished and well developed General Appearance ED: well developed and NAD HEENT Reports moist mucous membranes normocephalic and atraumatic Eyes PERRL and EOMs intact bilaterally Neck full ROM and supple Resp normal respiratory effort and clear to auscultation bilaterally Cardio regular rate, regular rhythm and no murmurs Cardio Narrative: Mild tachycardia, regular GI GI Narrative: Distended and tender throughout the epigastric and supraumbilical area moderately. The rest of the abdomen is tender as well as mildly so. There is no guarding or rebound tenderness. Auscultation: normoactive bowel sounds Palpation: soft Back/Spine no CVA tenderness General Back: other FROM Extremity normal to inspection Extremity Narrative: Good thrill AV fistula right upper extremity General Extremety ED: Negative for edema, pulses abnormal or tenderness General Extremity: Negative for edema or pulses abnormal Neuro CN's II-XII intact bilaterally and no sensory deficits noted Neuro Narrative: At baseline mental status. Sister. Sensorium / Orientation: awake and alert Motor Exam: strength 5/5 throughout Skin no rashes or lesions noted and no wounds MDM MDM MDM Narrative Medical decision making narrative: Will given the patient Zofran and morphine, avoiding IV fluids because there is a critical shortage, obtain labs and performed a noncontrast abdominal CT given the fact that he has a renal transplant. His renal function is stable, he is not particularly tender over the right sided renal transplant. He does not feel any better after the medications and is buggy ladle tender but is a very difficult exam, his tenderness is diffuse upper and mid abdomen. He states he still feels sick to his stomach. I reviewed the CT imaging as well as the report which I agree with, it basically shows cholelithiasis but no other acute abnormality to explain the patient's pain. His tachycardia is persistent at rest, making me apprehensive about sending him home assuming that this is some upper GI discomfort, which certainly it may be. For this reason on giving him a GI cocktail in addition to Reglan while we obtain an emergent right upper quadrant ultrasound to evaluate for the possibility of cholecystitis; his total bilirubin is 1.8 which is higher than his last measurement of the rest of his liver enzymes are within normal limits and his lipase is pending. His anemia is chronic, and I do not think explains his tachycardia, and is likely anemia of chronic disease related to his kidney function, and/or causes of hypochromic microcytic anemia. Checked out at shift change to night ED physician. Lab Data Attestation: I reviewed the patient's lab results. Labs: Laboratory Results - last 24 hr 02/04/24 02/04/24 16:50 19:51 WBC 5.2 RBC 3.87 L Hgb 7.1 L Hct 26.3 L MCV 68.0 L MCH 18.3 L MCHC 27.0 L RDW Std Deviation 54.7 H RDW Coeff of Anil 23.2 H Plt Count 191 MPV TNP Immature Gran % (Auto) 0.400 Neut % (Auto) 60.3 Lymph % (Auto) 20.0 [place] % (Auto) 15.0 H Eos % (Auto) 3.5 Baso % (Auto) 0.8 Absolute Neuts (auto) 3.1 Absolute Lymphs (auto) 1.04 Nucleated RBC % 0.4 Differential Comment SCANNED Polychromasia RARE Hypochromasia 2+ Anisocytosis 2+ Ovalocytes 1+ Crenated Cell RARE Schistocytes RARE Sodium 142 Potassium 4.4 Chloride 117 H Carbon Dioxide 18.0 L Anion Gap 6 BUN 27 H Creatinine 1.75 H Est GFR (MDRD) Af Amer 52 L Est GFR (MDRD) Non-Af 43 L BUN/Creatinine Ratio 15.4 Glucose 106 Calcium 8.2 L Total Bilirubin 1.80 H AST 31 ALT 28 Alkaline Phosphatase 110 Total Protein 7.0 Albumin 3.2 Globulin 3.8 Albumin/Globulin Ratio 0.8 L Urine Color Yellow Urine Clarity Sl. Cloudy Urine pH 6.0 Ur Specific Anthony 1.015 Urine Protein 30 H Urine Glucose (UA) Normal Urine Ketones Negative Urine Occult Blood 250 H Urine Nitrite Negative Urine Bilirubin Negative Urine Urobilinogen Normal Ur Leukocyte Esterase 25 H Urine RBC > 100 SEEN Urine WBC 0-5 SEEN Ur Squamous Epith Cells 0 SEEN Urine Bacteria 1+ Urine Mucus 0 SEEN Radiography Diagnostic Testing: Clinical Impression(s) from Imaging Studies Abdomen/Pelvis CT 02/04/24 18:21 IMPRESSION: 1. Mild right hydroureteronephrosis. 2. Cholelithiasis. 3. Renal and hepatic cysts. Follow-up is not indicated per ACR guidelines. 4. Splenorenal varices suggest portal hypertension. 5. Nodule or lymph node in a small left inguinal hernia. Electronically Signed: Mariela Gao MD at 20:32 EDT Reading Location ID and State: [id number] / Tel , Service support , Rhythm Strip Rhythm Strip: Sinus Tach Rate: 120 Ectopy: None EKG Initial EKG: Attestation: I personally reviewed and interpreted this EKG as follows: Interpretation: No Acute Injury Pattern and Sinus Tachycardia Discharge Plan Triage Chief Complaint: Abd Pain ED Provider: Miah Celis Dx/Rx/DC Orders Clinical Impression: Acute upper abdominal pain, Tachycardia Prescriptions: No Action mycophenolate mofetil 500 MG tablet 500 mg PO BID multivitamin Tablet 1 tab PO DAILY lactulose 20 gram/30 mL solution 45 ml PO 4X/DAY Xifaxan 550 mg tablet 550 mg PO BID tacrolimus 0.5 mg capsule 0.5 mg PO BID mirtazapine 30 mg tablet 30 mg PO QHS diltiazem HCl [Cardizem LA] 120 mg tablet extended release 24 hr 120 mg PO DAILY Qty: 30 0RF metoprolol tartrate 25 mg Tablet 25 mg PO BID Qty: 0 0RF acetaminophen 325 mg tablet 650 mg PO Q4H PRN (Reason: fever or pain) allopurinol 100 mg tablet 100 mg PO DAILY guaifenesin [Adult Tussin Chest Congestion] 100 mg/5 mL liquid 200 mg PO Q4H PRN (Reason: cough) magnesium hydroxide [Milk of Magnesia] 400 mg/5 mL suspension 30 ml PO DAILY PRN (Reason: constipation) pantoprazole [Protonix] 40 mg tablet,delayed release (DR/EC) 40 mg PO DAILY Qty: 60 0RF amoxicillin-pot clavulanate 875-125 mg tablet 875 mg PO Q12H Qty: 14 0RF atorvastatin 40 mg tablet 40 mg PO QHS Xarelto 20 mg tablet 20 mg PO DAILY 30 Days Qty: 30 0RF Rx Instructions: must administer with evening meal aspirin 81 mg capsule 81 mg PO DAILY 30 Days Qty: 30 0RF Primary Care Provider: Mike Bella Referrals: Mike Bella MD [Primary Care Provider] - Print Language: Swedish
[2024-02-04] MEDS: Morphine 4 MG/ML Syringe IV (18:42)
[2024-02-04] MEDS: Ondansetron 4 MG/2 ML Vial IV (18:42)
[2024-02-04 19:09] VITALS: BP 141/92; PULSE 123; RESP 20; O2SAT 92
[2024-02-04 20:05] LABS: Mucous, Urine 0 SEEN /hpf (<or=2+); Squamous Epithelial Cells - UA 0 SEEN /hpf (0-5)
[2024-02-04 20:09] LABS: Color, Urine Yellow (Yellow); Glucose, Dipstick Normal (Normal); Ketone-Dipstick Negative (Negative); Leukocyte Esterase-Dipstick 25 /ul (Negative); Nitrite-Dipstick Negative (Negative); Occult Blood-Urine 250 /ul (Negative); Protein-Dipstick 30 mg/dl (Negative); Specific Gravity, Urine 1.015 (1.002-1.030); Urine Bilirubin Dipstick Negative (Negative); Urine Clarity Sl. Cloudy (Clear); Urine Urobilinogen Normal (Normal)
[2024-02-04 20:46] LABS: Bacteria 1+ /hpf (None Seen); Red Blood Cells-Urine > 100 SEEN /hpf (0-5); White Blood Cells 0-5 SEEN /hpf (0-5)
[2024-02-04 21:00] VITALS: BP 138/90; PULSE 123; RESP 16; O2SAT 96
--- NOTE | 2024-02-04 22:02 | US_ITS ---
STUDY: ABDOMINAL ULTRASOUND - RIGHT UPPER QUADRANT REASON FOR VISIT: Male, 58 years old abdominal pain TECHNIQUE: Grayscale and color Doppler imaging of the right upper quadrant was performed. COMPARISON: CT abdomen and pelvis same date. FINDINGS: Liver: There is normal echogenicity of the liver. Hepatic cysts identified right lobe, 3.2 cm. Gallbladder: Biliary sludge with mild wall thickening, no pericholecystic fluid. Sonographic Gannon''s sign reported positive. Common Bile Duct: The common bile duct measures 5 mm. This is within normal limits for patients age. Pancreas: Obscured by bowel gas. Right Kidney: Atrophy of the [place] kidney. Transplant kidney measures 10.5 cm, no hydronephrosis. OTHER: No free fluid. US/Gallbladder IMPRESSION: Gallbladder sludge with positive sonographic Gannon''s sign. Findings raise question of possible acute cholecystitis. Further evaluation recommended. Electronically Signed: Peter Malloy MD at 0:02 EDT ,
[2024-02-04 22:37] LABS: Lipase 91 U/L (13-75)
[2024-02-04 23:00] VITALS: BP 142/102; PULSE 123; RESP 14; O2SAT 96
[2024-02-04] MEDS: Lidocaine 2% Viscous15 ML UDC 15 ML PO (23:02)
[2024-02-04] MEDS: Metoclopramide 10 MG/2 ML Vial 5 MG IV (23:02)
[2024-02-04] MEDS: Mag Hydrox/Al Hydrox/Simeth 30 ML UDC PO (23:02)
[2024-02-05] MEDS: 0.9% Normal Saline (1000mL) 1,000 ML 999 ML IV (00:40)
[2024-02-05 00:52] VITALS: BMI 14.1
[2024-02-05 00:53] VITALS: BP 146/96; PULSE 123; RESP 20; O2SAT 93
[2024-02-05] MEDS: Morphine 4 MG/ML Syringe IV (00:53)
[2024-02-05] MEDS: Piperacil/Tazobactam 3.375 GM in 0.9% Normal Saline (50mL MB+) 50 ML IV (01:02)
[2024-02-05 01:03] VITALS: BP 151/98; PULSE 123; RESP 19; O2SAT 92
--- NOTE | 2024-02-05 01:58 | ED.RN ---
CALLED PHYSICIANS AT 0200, GIVEN ETA IS 0700. I ASKED THEM TO ATTEMPT [facility]
--- NOTE | 2024-02-05 02:07 | ED.RN ---
PHYSICIANS CALLED BACK WITH AN UPDATE ON [facility], SHE SAID [facility] HAS NO AVAILABILITY AND [facility] HAS NO [facility] TR[facility]S [facility]
[2024-02-05 03:00] VITALS: BP 164/101; PULSE 126; RESP 18; O2SAT 95
[2024-02-05 05:00] VITALS: BP 144/85; PULSE 127; RESP 16; O2SAT 93
[2024-02-05] MEDS: Mycophenolate Mofetil 250 MG Capsule 500 MG PO (06:41)
[2024-02-05] MEDS: Tacrolimus 0.5 MG Capsule PO (06:41)
[2024-02-05 06:55] VITALS: BP 128/79; PULSE 126; RESP 16; TEMP 36.8; O2SAT 94
--- NOTE | 2024-02-05 06:57 | ED.RN ---
This RN attempted to call report to Adult ED. Employee who answered phone told nurse the are about to begin pt report and to call back later. This RN informed staff member that [facility] is currently picking pt up in ER to transport to hospital and that no nurse will be available to call report on pt after 7. Worker hung up phone on this RN. Charge nurse notified, report unable to be called.
--- NOTE | 2024-02-05 14:09 | CASEMGMT ---
Social Work Ysabel called from [facility] inquiring where pt is. STUART reviewed chart, pt was transferred to . STUART let Ysabel know, faxed her the ED summary per her request. Pt lives at [facility] in the [place]. MARTHA Seymour
== END 2024-02-05 07:10 | disposition short-term general hospital (02) ==
LOC: ED 19:16
PROVIDERS: Emergency Provider Emergency Medicine; PCP Family Medicine; Visit Provider Emergency Medicine
DX: R10.10 Upper abdominal pain, unspecified (principal); I48.91 Unspecified atrial fibrillation; N18.32 Chronic kidney disease, stage 3b; K80.20 Calculus of gallbladder without cholecystitis without obstruction; I12.9 Hypertensive chronic kidney disease with stage 1 through stage 4 chronic kidney disease, or unspecified chronic kidney disease; D64.9 Anemia, unspecified; F79 Unspecified intellectual disabilities; Z94.0 Kidney transplant status; Z86.718 Personal history of other venous thrombosis and embolism; I25.2 Old myocardial infarction; Z79.01 Long term (current) use of anticoagulants; Z86.711 Personal history of pulmonary embolism
CPT/HCPCS: 51702; 74176; 76705; 80053; 81001; 83690; 85025; 93005; 96365; 96366; 96375; 96376; 99285; J7030; P9612; A4216; J2405

== ENCOUNTER 2024-02-14 18:32 | Emergency (ER) | payer MEDICARE, SELFPAY ==
[2024-02-14 18:34] VITALS: BP 147/70; PULSE 98; RESP 20; TEMP 36.3; O2SAT 97
--- NOTE | 2024-02-14 19:32 | ED.VIS.GI ---
HPI HPI - GI History of Present Illness Chief Complaint: Abd Pain Detail of Chief Complaint: Abdominal pain Informant: patient Narrative Narrative: Patient presents to the emergency department complaint of abdominal pain that started around 3 PM. Patient states that he was admitted to [facility] last week for abdominal pain that they thought may be related to gallbladder. Sounds like he had an EGD at that time. They decided not to take his gallbladder out and treated medically. He does have gallstones. He had been doing well since discharge until today around 3:00 when he started having pain and nausea. He spit up some phlegm. Patient has history of kidney transplant and self caths. He denies fevers. Patient also with history of A-fib and is on Xarelto [facility] Medical History Wears hearing aid in both ears Kidney disease Dialysis patient Anxiety and depression History of anemia History of chronic kidney disease History of deep vein thrombosis History of CA (myocardial infarction) Myocardial infarct History of encephalopathy History of pulmonary embolism History of DVT (deep vein thrombosis) Severe protein-calorie malnutrition Anemia in chronic illness Neutropenia Bladder dysfunction Immunosuppressed status Chronic kidney disease, stage 3b Pancytopenia HTN (hypertension) Mild intellectual disability Urinary retention Vocal cord dysfunction Bronchitis Pulmonary embolism CKD (chronic kidney disease), stage III Neurogenic bladder disorder DVT (deep venous thrombosis) Congenital nystagmus Home Medications ?Medication ?Instructions ?Recorded ?Last Taken ?Type mycophenolate mofetil 500 mg tablet 500 mg PO BID TRANSPLANT 07/14/16 01/26/23 History ANTI-REJECTION multivitamin 1 tab PO DAILY SUPPLEMENT 02/13/22 01/26/23 History lactulose 20 gram/30 mL oral 30 ml PO TID hepatic failure 06/13/22 01/26/23 History solution rifaximin 550 mg tablet (Xifaxan) 550 mg PO BID ANTIBIOTIC 07/16/22 01/26/23 History mirtazapine 30 mg tablet 30 mg PO QHS DEPRESSION 11/01/22 01/25/23 History diltiazem HCl 120 mg 120 mg PO DAILY BLOOD PRESSURE #30 01/01/23 01/26/23 Rx tablet,extended release 24 hr tabs (Cardizem LA) metoprolol tartrate 25 mg tablet 25 mg PO BID BLOOD PRESSURE #0 tabs 09/01/23 09/26/23 Rx tacrolimus 0.5 mg capsule, 0.5 mg PO BID TRANSPLANT 01/15/23 01/26/23 History immediate-release ANTI-REJECTION atorvastatin 40 mg tablet 40 mg PO QHS hld 07/25/23 Unknown History aspirin 81 mg capsule 81 mg PO DAILY blood thinner 30 08/06/23 Unknown Rx days #30 caps rivaroxaban 20 mg tablet (Xarelto) 20 mg PO DAILY blood thinner 30 08/06/23 Unknown Rx days #30 tabs acetaminophen 325 mg tablet 650 mg PO Q4H PRN fever or pain 11/03/23 Unknown History allopurinol 100 mg tablet 100 mg PO DAILY URIC ACID LEVELS 11/03/23 Unknown History guaifenesin 100 mg/5 mL oral 200 mg PO Q4H PRN cough 11/03/23 Unknown History liquid (Adult Tussin Chest Congestion) magnesium hydroxide 400 mg/5 mL 30 ml PO DAILY PRN constipation 11/03/23 Unknown History oral suspension (Milk of Magnesia) pantoprazole 40 mg tablet,delayed 40 mg PO DAILY #60 tabs 11/09/23 Unknown Rx release (Protonix) diltiazem HCl 120 mg tablet 120 mg PO DAILY 02/05/24 Unknown History lactulose 10 gram/15 mL oral 30 ml PO TID 02/05/24 Unknown History solution (Enulose) Allergy/AdvReac Type Severity Reaction Status Date / Time red dye Allergy Unknown unknown Verified 02/14/24 18:33 Family History Mother Hypertension Father Diabetes Surgical History Renal transplant recipient Kidney transplant recipient S/P arteriovenous (AV) fistula creation Social History household members: none housing: long-term Smoking Status: Never smoker second hand exposure: No alcohol intake: never substance use type: does not use caffeine: No ROS ROS ED Review of Systems ROS Unobtainable: other Constitutional Constitutional ED: Reports lethargy; Denies chills, fever(s), sweats or weight loss Eyes Eyes: Denies blurry vision, change in vision or diplopia ENT ENT ED: Denies rhinorrhea or sore throat Cardiovascular Cardiovascular: Denies chest pain, orthopnea or racing heartbeat Respiratory/Chest Respiratory/Chest: Denies cough, dyspnea, dyspnea on exertion, orthopnea or sputum Gastrointestinal Gastrointestinal: Reports abdominal pain, nausea and vomiting; Denies diarrhea Genitourinary Genitourinary ED: Denies dysuria, hematuria or urinary frequency Musculoskeletal Musculoskeletal: Denies arthralgias, back pain, myalgias or neck pain Integumentary Denies abscess, Abrasions or rash Neurologic Neurologic: Denies headache(s) or weakness Psychiatric Psychiatric: Denies anxiety, depression or suicidal thoughts Endocrine Endocrinology: Denies polydipsia, polyphagia or polyuria Hematologic/Lymphatic Hematologic/Lymphatic: Denies easy bleeding, easy bruising or lymphadenopathy Allergic/Immunologic Allergic/Immunologic ED: Denies mouth swelling, tongue swelling or urticaria EXAM Physical Exam Const Vital Signs: 02/14/24 18:34 02/14/24 20:33 02/14/24 22:00 Temperature 97.4 F L Temperature Source Temporal Pulse Rate 98 107 H 102 H Respiratory Rate 20 H 22 H 21 H Blood Pressure 147/70 H 127/85 H 143/89 H Blood Pressure Mean 95 99 107 Pulse Ox 97 95 94 Oxygen Delivery Method Room Air Room Air Room Air Positive well nourished and well developed General Appearance ED: well developed and NAD HEENT Reports TM's clear and moist mucous membranes normocephalic and atraumatic; Negative for trauma or tenderness Tympanic Membrane ED: Yes TM's clear Eyes PERRL and EOMs intact bilaterally General Eye ED: Negative for pale conjunctiva or scleral icterus Neck no lymphadenopathy, supple and no JVD General: Negative for tenderness Chest Wall inspection of chest normal and palpation of chest normal Chest: Negative for tenderness Resp normal respiratory effort and clear to auscultation bilaterally Effort and Inspection: Negative for respiratory distress or pain with movement Auscultation: Negative for rhonchi, wheezes or diminished lung sounds Cardio regular rate, regular rhythm, S1 normal heart sound, S2 normal heart sound and no murmurs Peripheral Pulses: pulses 2+ throughout GI normal to inspection, nondistended, normoactive bowel sounds, soft to palpation, non-tender and no masses GI Narrative: Tenderness palpation over the epigastric region with some guarding. There is no rebound, rigidity, or pineal signs. No masses palpated. Back/Spine no CVA tenderness and no thoracic nor lumbar tenderness Extremity normal to inspection Extremity Narrative: Patient has an AV fistula right upper forearm with a good thrill General Extremety ED: Negative for edema General Extremity: Negative for edema Neuro oriented x3, CN's II-XII intact bilaterally, no sensory deficits noted and gait normal Sensorium / Orientation: awake, alert, oriented to person, oriented to place and oriented to time Motor Exam: strength 5/5 throughout and strength abnormal Psych mental status grossly normal Skin no rashes or lesions noted and no wounds MDM MDM MDM Narrative Medical decision making narrative: Patient presents to the emergency department with abdominal pain and started around 3 PM today. He was seen in the emergency department at our facility and transferred to [facility] about a week ago for same. He was evaluated for gallbladder disease and treated conservatively. His sister states that she believes he had an EGD as well. IV line established. CBC with differential white count of 5.4 with hemoglobin 7.4 and platelet count of 193. Chemistries unremarkable. BUN 24 and creatinine 1.75. Lactate normal 1.3. LFTs unremarkable. Urinalysis essentially unremarkable for UTI. Patient was medicated morphine and Zofran. He continues to complain of pain and was given a second dose of morphine and Zofran. CT scan of the abdomen pelvis without contrast obtained showed significant urinary bladder wall thickening and surrounding hazy fat stranding consistent with cystitis although clinically I do not think he has cystitis. Patient does self cath. Posterior bilateral lower lobe dense consolidations somewhat masslike on the left although this likely represents atelectasis pneumonia or even neoplastic process not excluded. Patient has a right pelvic transplant kidney. Patient has dependent Nila lithiasis with subtle pericholecystic hazy fat stranding. This may be better evaluated with dedicated nuclear medicine hepatobiliary scan. This point etiology of his abdominal plain unclear. Patient has complicated medical history and during his last visit to our emergency department was felt by ER doc and surgeon on-call that he should be transferred to higher level of care where he had his renal transplant. Patient is comfortable with transfer back to . Lab Data Attestation: I reviewed the patient's lab results. Labs: Laboratory Results - last 24 hr 02/14/24 02/14/24 19:58 21:08 WBC 5.4 RBC 3.88 L Hgb 7.4 L Hct 26.2 L MCV 67.5 L MCH 19.1 L MCHC 28.2 L RDW Std Deviation 56.7 H RDW Coeff of Anil 24.3 H Plt Count 193 MPV TNP Immature Gran % (Auto) 0.400 Neut % (Auto) 64.4 Lymph % (Auto) 16.6 L [place] % (Auto) 15.3 H Eos % (Auto) 2.6 Baso % (Auto) 0.7 Absolute Neuts (auto) 3.5 Absolute Lymphs (auto) 0.89 Nucleated RBC % 0 Platelet Estimate ADEQUATE Polychromasia RARE Hypochromasia 1+ Anisocytosis 1+ Microcytosis 1+ Ovalocytes RARE Sodium 144 Potassium 3.9 Chloride 117 H Carbon Dioxide 17.0 L Anion Gap 10 BUN 24 H Creatinine 1.75 H Est GFR (MDRD) Af Amer 52 L Est GFR (MDRD) Non-Af 43 L BUN/Creatinine Ratio 13.7 Glucose 110 H Lactic Acid 1.3 Calcium 8.4 L Total Bilirubin 1.70 H AST 31 ALT 27 Alkaline Phosphatase 104 Total Protein 7.0 Albumin 3.3 Globulin 3.7 Albumin/Globulin Ratio 0.9 Lipase 65 Urine Color Yellow Urine Clarity Sl. Cloudy Urine pH 6.0 Ur Specific [place] 1.020 Urine Protein 30 H Urine Glucose (UA) Normal Urine Ketones Negative Urine Occult Blood 150 H Urine Nitrite Negative Urine Bilirubin Negative Urine Urobilinogen Normal Ur Leukocyte Esterase 100 H Urine RBC 10-25 SEEN Urine WBC 10-25 SEEN Ur Squamous Epith Cells 0-5 SEEN Amorphous Sediment 1+ URATE Urine Bacteria 0 SEEN Urine Mucus 0 SEEN Radiography Diagnostic Testing: Clinical Impression(s) from Imaging Studies Abdomen/Pelvis CT 02/14/24 20:33 IMPRESSION: Significant urinary bladder wall thickening with surrounding hazy fat stranding, consistent with cystitis. Posterior bilateral lower lobe dense consolidation, somewhat masslike on the left. Although this likely represents atelectasis, pneumonia or even neoplastic process is not excluded. Associated small right pleural effusion. Right pelvic transplant kidney without obvious abnormality. No hydronephrosis or obstructing ureteral calculus. Dependent cholelithiasis with subtle pericholecystic hazy fat stranding. If specific concern for acute cholecystitis, this may be better evaluated with dedicated nuclear medicine hepatobiliary scan. Low attenuation of the cardiac blood pool, which may signify anemic state. Recommend correlation with laboratory values. Electronically Signed: Clark Iraheta MD at 22:38 EDT , Discharge Plan Triage Chief Complaint: Abd Pain ED Provider: Brooks Fallon Dx/Rx/DC Orders Clinical Impression: Abdominal pain, History of kidney transplant, Anemia Prescriptions: No Action mycophenolate mofetil 500 MG tablet 500 mg PO BID multivitamin Tablet 1 tab PO DAILY lactulose 20 gram/30 mL solution 30 ml PO TID Xifaxan 550 mg tablet 550 mg PO BID tacrolimus 0.5 mg capsule 0.5 mg PO BID mirtazapine 30 mg tablet 30 mg PO QHS diltiazem HCl [Cardizem LA] 120 mg tablet extended release 24 hr 120 mg PO DAILY Qty: 30 0RF metoprolol tartrate 25 mg Tablet 25 mg PO BID Qty: 0 0RF acetaminophen 325 mg tablet 650 mg PO Q4H PRN (Reason: fever or pain) allopurinol 100 mg tablet 100 mg PO DAILY guaifenesin [Adult Tussin Chest Congestion] 100 mg/5 mL liquid 200 mg PO Q4H PRN (Reason: cough) magnesium hydroxide [Milk of Magnesia] 400 mg/5 mL suspension 30 ml PO DAILY PRN (Reason: constipation) pantoprazole [Protonix] 40 mg tablet,delayed release (DR/EC) 40 mg PO DAILY Qty: 60 0RF atorvastatin 40 mg tablet 40 mg PO QHS Xarelto 20 mg tablet 20 mg PO DAILY 30 Days Qty: 30 0RF Rx Instructions: must administer with evening meal aspirin 81 mg capsule 81 mg PO DAILY 30 Days Qty: 30 0RF diltiazem HCl 120 mg tablet 120 mg PO DAILY lactulose [Enulose] 10 gram/15 mL solution 30 ml PO TID Primary Care Provider: Mike Bella Referrals: Mike Bella MD [Primary Care Provider] - Print Language: Slovenian Disposition Disposition: DC/Tx to Another Type of HCF
[2024-02-14] MEDS: Morphine 4 MG/ML Syringe IV ×2 (19:51→22:42)
[2024-02-14] MEDS: Ondansetron 4 MG/2 ML Vial IV (19:52)
[2024-02-14 20:09] LABS: Absolute Lymphocyte Count 0.89 X10^3/uL (0.83-4.51); Absolute Neutrophil Count 3.5 X10^3/uL (2.0-7.7); Basophil# 0.04 X10^3/uL; Basophil% 0.7 % (0-1); Eosinophil# 0.14 X10^3/uL; Eosinophils% 2.6 % (0-5); Hematocrit 26.2 % (40-54); Hemoglobin 7.4 g/dL (13.0-16.5); Lymphocyte # 0.89 X10^3/ul (0.83-4.51); Lymphocyte % 16.6 % (19-41); Mean Corp Hgb Conc 28.2 g/dL (32-36); Mean Corpuscular Hgb 19.1 pg (27.0-32.0); Mean Corpuscular Volume 67.5 fL (80-94); Monocyte# 0.82 X10^3/uL; Monocyte% 15.3 % (0-10); NRBC Flagged by Analyzer 0 % (0-5); Neutrophil # 3.46 X10^3/uL (2.7-7.7); Neutrophil % 64.4 % (47-70); POSITIVE MORPHOLOGY YES; Platelet Count 193 K/mm3 (150-450); RBC Distribution Width CV 24.3 % (11.6-14.6); RBC Distribution Width SD 56.7 fl (35.1-43.9); Red Blood Count 3.88 M/mm3 (4.6-6.2); White Blood Count 5.4 K/mm3 (4.4-11.0)
[2024-02-14 20:13] LABS: Differential Indicated SCAN CRITERIA MET
[2024-02-14 20:25] LABS: ALB/GLOB Ratio 0.9 RATIO (0.9-2.4); AST(SGOT) 31 U/L (15-37); Alanine Aminotransfer ALT/SGPT 27 U/L (16-61); Albumin, Serum 3.3 g/dL (3.2-5.0); Alkaline Phosphatase 104 U/L (45-117); Anion Gap 10 (5-15); BUN 24 mg/dL (7-18); BUN/Creat Ratio 13.7 RATIO (10-20); Calcium,Total 8.4 mg/dL (8.5-10.1); Chloride 117 mmol/L (98-107); Creatinine, Serum 1.75 mg/dL (0.70-1.30); EST Glomerular Filtration Rate 43 mL/min (>60); Est Glom Filt Rate - Afr Amer 52 mL/min (>60); Globulin 3.7 g/dL (2.2-4.2); Glucose 110 mg/dL (74-106); Lipase 65 U/L (13-75); Potassium 3.9 mmol/L (3.5-5.1); Sodium Level 144 mmol/L (136-145)
[2024-02-14 20:30] LABS: Lactic Acid 1.3 mmol/L (0.4-1.9)
[2024-02-14 20:33] VITALS: BP 127/85; PULSE 107; RESP 22; O2SAT 95
--- NOTE | 2024-02-14 20:33 | CT_ITS ---
INDICATION: upper abdominal pain COMPARISON: 02/04/[address] A radiation dose optimization technique was used for this scan. RADIATION DOSAGE (If Supplied By Facility): CTDIvol/DLP = ( 12.34 ) / ( 730.65 ) mGy/mGycm FINDINGS: Noncontrast serial CT axial images through the abdomen and pelvis with coronal and sagittal reformatted series. Markedly atrophic bilateral kidneys with bilateral simple fluid attenuating renal lesions, likely renal cysts. [place] right renal kidney demonstrates moderate size patulous renal pelvis without obvious obstructing calculus. Right pelvic transplant kidney without obvious abnormality. No hydronephrosis or obstructing ureteral calculus. Significant urinary bladder wall thickening with surrounding hazy fat stranding, consistent with cystitis. Small fat-containing left inguinal hernia without fat stranding. Dependent cholelithiasis with subtle pericholecystic hazy fat stranding. Scattered air-fluid levels within nondilated bowel loops suggesting mild ileus formation. No peripancreatic fat stranding. No significant free fluid. No free air. Normal caliber appendix. LUNG BASES: Posterior bilateral lower lobe dense consolidation, somewhat masslike on the left. Small right pleural effusion. Mild cardiomegaly. Low attenuation of the cardiac blood pool, which may signify anemic state. Small pericardial effusion. BONES: Unremarkable for age. CT/Abdomen/Pelvis without Cont IMPRESSION: Significant urinary bladder wall thickening with surrounding hazy fat stranding, consistent with cystitis. Posterior bilateral lower lobe dense consolidation, somewhat masslike on the left. Although this likely represents atelectasis, pneumonia or even neoplastic process is not excluded. Associated small right pleural effusion. Right pelvic transplant kidney without obvious abnormality. No hydronephrosis or obstructing ureteral calculus. Dependent cholelithiasis with subtle pericholecystic hazy fat stranding. If specific concern for acute cholecystitis, this may be better evaluated with dedicated nuclear medicine hepatobiliary scan. Low attenuation of the cardiac blood pool, which may signify anemic state. Recommend correlation with laboratory values. Electronically Signed: Clark Iraheta MD at 22:38 EDT ,
[2024-02-14 20:37] VITALS: BMI 32.1
[2024-02-14 20:46] LABS: Anisocytosis 1+; Hypochromasia 1+; Microcytosis 1+; Ovalocyte RARE; Platelet Estimate ADEQUATE (ADEQ); Polychromasia RARE
[2024-02-14 21:12] LABS: Bacteria 0 SEEN /hpf (None Seen); Mucous, Urine 0 SEEN /hpf (<or=2+)
[2024-02-14 21:14] LABS: Color, Urine Yellow (Yellow); Glucose, Dipstick Normal (Normal); Ketone-Dipstick Negative (Negative); Leukocyte Esterase-Dipstick 100 /ul (Negative); Nitrite-Dipstick Negative (Negative); Occult Blood-Urine 150 /ul (Negative); Protein-Dipstick 30 mg/dl (Negative); Urine Bilirubin Dipstick Negative (Negative); Urine Clarity Sl. Cloudy (Clear); Urine Urobilinogen Normal (Normal)
[2024-02-14 21:21] LABS: Amorphous Sediment 1+ URATE; Red Blood Cells-Urine 10-25 SEEN /hpf (0-5); Squamous Epithelial Cells - UA 0-5 SEEN /hpf (0-5); White Blood Cells 10-25 SEEN /hpf (0-5)
[2024-02-14 22:00] VITALS: BP 143/89; PULSE 102; RESP 21; O2SAT 94
[2024-02-14] MEDS: rifAXIMin 550 MG Tablet PO (23:17)
[2024-02-14] MEDS: Mirtazapine 30 MG Tablet PO (23:18)
[2024-02-14] MEDS: Metoprolol Tartrate 25 MG Tablet PO (23:18)
[2024-02-14] MEDS: Tacrolimus 0.5 MG Capsule PO (23:19)
[2024-02-14] MEDS: Mycophenolate Mofetil 250 MG Capsule PO (23:20)
--- NOTE | 2024-02-14 23:44 | ED.RN ---
This RN called [facility] and updated pts nurse about what was going on. Also spoke with sister Evaristo and gave update about pt. Pending placement at
[2024-02-15] VITALS (7 sets, daily range): BP systolic 130–149; BP diastolic 85–99; PULSE 97–116; RESP 16–119; TEMP 37.1; O2SAT 93–95
[2024-02-15] MEDS: Piperacil/Tazobactam 2,250 MG in 0.9% Normal Saline (50mL MB+) 50 ML 100 MG IV (01:59)
--- NOTE | 2024-02-15 08:21 | NURSING ---
CALLED [facility], ETA IS 90 MIN
== END 2024-02-15 10:15 | disposition other institution (70) ==
PROVIDERS: Emergency Provider Emergency Medicine; PCP Family Medicine; Visit Provider Emergency Medicine
DX: R10.9 Unspecified abdominal pain (principal); I48.91 Unspecified atrial fibrillation; N18.32 Chronic kidney disease, stage 3b; I12.9 Hypertensive chronic kidney disease with stage 1 through stage 4 chronic kidney disease, or unspecified chronic kidney disease; Z94.0 Kidney transplant status; Z82.49 Family history of ischemic heart disease and other diseases of the circulatory system; D64.9 Anemia, unspecified; Z79.01 Long term (current) use of anticoagulants; F41.8 Other specified anxiety disorders; Z79.899 Other long term (current) drug therapy
CPT/HCPCS: 51702; 74176; 80053; 81001; 83605; 83690; 85025; 96365; 96375; 96376; 99285; A4216; J2405

== ENCOUNTER 2024-08-29 21:19 | Emergency (ER) | payer MEDICARE, SELFPAY ==
[2024-08-29 21:24] VITALS: BP 131/81; PULSE 78; RESP 19; TEMP 36.9; O2SAT 98; BMI 29.0
[2024-08-29 21:26] VITALS: BP 131/81; PULSE 77; RESP 16; TEMP 36.9; O2SAT 96
[2024-08-29 21:27] VITALS: O2SAT 98
--- NOTE | 2024-08-29 22:07 | US_ITS ---
PROCEDURE: GALLBLADDER 08/29/2024 REASON FOR EXAM: ABD PAIN COMPARISON: None FINDINGS: Liver: Craniocaudal length 13.7 cm. Slightly heterogenous echotexture. Gallbladder: Moderate amount of sludge and tiny cholelithiasis. No significant wall thickening or pericholecystic fluid. Negative sonographic Gannon's sign. Common bile duct: Normal measuring 4 mm. Pancreas: Obscured by bowel gas. Other: Visualized portions of the transplant right kidney are unremarkable. [place] kidneys atrophic. No right upper quadrant ascites. US/Gallbladder IMPRESSION: Slightly heterogeneous hepatic echotexture without focal lesion. Cholelithiasis without evidence of cholecystitis. Normal appearing transplant right kidney. Reading Location: [facility]
--- NOTE | 2024-08-29 22:15 | EX.ED.DYSGE1 ---
HPI History of Present Illness Chief Complaint: Shortness of Breath Informant: patient and family Narrative Narrative: Patient is a 59-year-old male with past medical history of hypertension as well as chronic kidney disease status post kidney transplant no longer on dialysis been on antirejection medication. He stays at a extended care facility. Sister reports that there have been multiple people sick at the facility and he has had cough and congestion for approximately 10 days. Sister states that there is also been a great deal of stress recently as they lost their mother roughly 1 month ago and patient's been dealing with anxiety and depression issues. Patient states that this evening he walked to the nurses station and felt short of breath. Secondary to this he states they called 911 and send in the hospital for evaluation. His sister states that she was told that his blood pressure was elevated his heart rate was high and his pulse ox was low. However upon arrival to the ER vitals are stable. Patient does admit to feeling better upon arrival. However with concern for potential infection causing his symptoms he was sent in for evaluation [facility] Medical History Wears hearing aid in both ears Kidney disease Dialysis patient Anxiety and depression History of anemia History of chronic kidney disease History of deep vein thrombosis History of HI (myocardial infarction) Myocardial infarct History of encephalopathy History of pulmonary embolism History of DVT (deep vein thrombosis) Severe protein-calorie malnutrition Anemia in chronic illness Neutropenia Bladder dysfunction Immunosuppressed status Chronic kidney disease, stage 3b Pancytopenia HTN (hypertension) Mild intellectual disability Urinary retention Vocal cord dysfunction Bronchitis Pulmonary embolism CKD (chronic kidney disease), stage III Neurogenic bladder disorder DVT (deep venous thrombosis) Congenital nystagmus Home Medications ?Medication ?Instructions ?Recorded ?Last Taken ?Type mycophenolate mofetil 500 mg tablet 500 mg PO BID TRANSPLANT 07/14/16 01/26/23 History ANTI-REJECTION multivitamin 1 tab PO DAILY SUPPLEMENT 02/13/22 01/26/23 History lactulose 20 gram/30 mL oral 30 ml PO TID hepatic failure 06/13/22 01/26/23 History solution rifaximin 550 mg tablet (Xifaxan) 550 mg PO BID ANTIBIOTIC 07/16/22 01/26/23 History mirtazapine 30 mg tablet 30 mg PO QHS DEPRESSION 11/01/22 01/25/23 History diltiazem HCl 120 mg 120 mg PO DAILY BLOOD PRESSURE #30 01/01/23 01/26/23 Rx tablet,extended release 24 hr tabs (Cardizem LA) metoprolol tartrate 25 mg tablet 25 mg PO BID BLOOD PRESSURE #0 tabs 01/01/23 01/26/23 Rx tacrolimus 0.5 mg capsule, 0.5 mg PO BID TRANSPLANT 01/15/23 01/26/23 History immediate-release ANTI-REJECTION atorvastatin 40 mg tablet 40 mg PO QHS hld 07/25/23 Unknown History aspirin 81 mg capsule 81 mg PO DAILY blood thinner 30 08/06/23 Unknown Rx days #30 caps rivaroxaban 20 mg tablet (Xarelto) 20 mg PO DAILY blood thinner 30 08/06/23 Unknown Rx days #30 tabs acetaminophen 325 mg tablet 650 mg PO Q4H PRN fever or pain 11/03/23 Unknown History allopurinol 100 mg tablet 100 mg PO DAILY URIC ACID LEVELS 11/03/23 Unknown History guaifenesin 100 mg/5 mL oral 200 mg PO Q4H PRN cough 11/03/23 Unknown History liquid (Adult Tussin Chest Congestion) magnesium hydroxide 400 mg/5 mL 30 ml PO DAILY PRN constipation 11/03/23 Unknown History oral suspension (Milk of Magnesia) pantoprazole 40 mg tablet,delayed 40 mg PO DAILY #60 tabs 11/09/23 Unknown Rx release (Protonix) diltiazem HCl 120 mg tablet 120 mg PO DAILY 02/05/24 Unknown History lactulose 10 gram/15 mL oral 30 ml PO TID 02/05/24 Unknown History solution (Enulose) doxycycline hyclate 100 mg capsule 100 mg PO BID 7 days #14 caps 08/30/24 Unknown Rx Allergy/AdvReac Type Severity Reaction Status Date / Time red dye Allergy Unknown unknown Verified 08/29/24 21:29 Family History Mother Hypertension Father Diabetes Surgical History Renal transplant recipient Kidney transplant recipient S/P arteriovenous (AV) fistula creation Social History household members: none housing: residential Smoking Status: Never smoker second hand exposure: No alcohol intake: never substance use type: does not use caffeine: No ROS ROS ED Constitutional Constitutional ED: Denies chills or fever(s) Eyes Eyes: Denies change in vision ENT ENT ED: Reports rhinorrhea; Denies sore throat Cardiovascular Cardiovascular: Denies chest pain, palpitations or racing heartbeat Respiratory/Chest Respiratory/Chest: Reports cough and dyspnea Gastrointestinal Gastrointestinal: Denies abdominal pain, diarrhea, nausea or vomiting Genitourinary Genitourinary ED: Denies dysuria Musculoskeletal Musculoskeletal: Denies myalgias Integumentary Denies rash Neurologic Neurologic: Denies headache(s) Psychiatric Psychiatric: Reports anxiety Hematologic/Lymphatic Hematologic/Lymphatic: Reports easy bleeding and easy bruising Allergic/Immunologic Allergic/Immunologic ED: Denies mouth swelling or tongue swelling EXAM Physical Exam Const Vital Signs: 08/29/24 21:24 08/29/24 21:26 08/29/24 21:27 Temperature 98.5 F 98.5 F Temperature Source Oral Oral Pulse Rate 78 77 Respiratory Rate 19 H 16 Respiratory Effort Normal Short of Breath Respiratory Depth Normal Respiratory Pattern Normal Blood Pressure 131/81 H 131/81 H Blood Pressure Mean 97 97 Pulse Ox 98 96 Oxygen Delivery Method Room Air Room Air Room Air 08/29/24 22:26 08/29/24 22:27 08/29/24 23:17 Temperature 98.2 F Temperature Source Oral Pulse Rate 76 79 75 Respiratory Rate 17 20 H 18 Respiratory Effort Respiratory Depth Respiratory Pattern Normal Blood Pressure 129/83 H 134/81 H Blood Pressure Mean 98 98 Pulse Ox 96 95 Oxygen Delivery Method Room Air Room Air 08/30/24 00:21 Temperature 97.8 F Temperature Source Pulse Rate 73 Respiratory Rate 16 Respiratory Effort Respiratory Depth Respiratory Pattern Blood Pressure 135/80 H Blood Pressure Mean 98 Pulse Ox 99 Oxygen Delivery Method Positive well nourished, well developed and obese General Appearance ED: well developed; Negative for pallor Nutritional Appearance: obese HEENT HEENT Narrative: No tongue or lip swelling no oral lesions no airway edema or compromise Nasal mucosa is hyperemic and boggy with enlarged inferior nasal turbinates There is cobblestoning in the posterior pharynx consistent with sinus drainage without secondary findings to suggest infection Eyes PERRL and EOMs intact bilaterally General Eye ED: Negative for scleral icterus Neck supple and no JVD Chest Wall palpation of chest normal Chest Narrative: No bony deformity or subcutaneous emphysema noted Resp Resp Narrative: Breath sounds are diminished throughout. There is faint rhonchi diffusely as well with faint expiratory wheezing in the bilateral lower lobes. Patient has slight tachypnea but no nasal flaring retractions or accessory muscle use. No stridor noted Cardio regular rate and regular rhythm GI non-distended and no masses GI Narrative: Abdomen is obese soft and nondistended with normal active bowel sounds. There is pain with palpation in the midepigastric region without voluntary guarding or rigidity. No pulsatile mass or fluid wave noted. Negative Gannon sign. Auscultation: normoactive bowel sounds Palpation: soft Extremity Extremity Narrative: Patient has a fistula in place in the right upper arm with palpable thrill and good bruit Trace to +1 pitting edema to the bilateral lower extremities that is equal and symmetric Negative Homans' sign bilaterally Neuro oriented x3 and CN's II-XII intact bilaterally Neuro Narrative: Patient is at his baseline mental status without focal neurologic deficit Sensorium / Orientation: alert Psych Psych Narrative: Patient has a flat affect Skin no rashes or lesions noted General Skin Exam: Negative for jaundice or pallor MDM MDM MDM Narrative Medical decision making narrative: Patient arrived to the ER with stable vitals and was satting 98 to 100% on room air. The patient's sister reported that she was told his heart rate was fast his blood pressure high and his oxygen level low but his vitals were stable upon arrival without any intervention by EMS. He does report he has had cough and congestion for the past 10 days with his immunosuppressed status there is concern for pneumonia versus viral infection such as COVID influenza or RSV. The patient also has pain in the midepigastric region and there is concerned this could be related to potential gallbladder dysfunction or pancreatitis. Patient's white count is normal going against systemic infection. His chest x-ray reveals no acute lung pathology going against pneumonia. Ultrasound of his gallbladder reveals no sign of acute infection. His lipase is elevated but chart review reveals that it is typically around this value. After receiving a DuoNeb he had improvement of his breath sounds and his vitals remained stable. Therefore at this time there is been no abnormal cardiac rhythm no hypoxia he is not showing signs of sepsis and therefore do not feel there is need for further intervention in the ER. With his immunosuppressed status I will place him on doxycycline for potentially missed or developing pneumonia but as he is not hypoxic or in respiratory distress is otherwise safe for discharge back to the residential. History & Record Review Discussion w/independent historian: Patient and Family Lab Data Attestation: I reviewed the patient's lab results. Labs: Laboratory Results - last 24 hr 08/29/24 21:30 WBC 4.8 RBC 4.78 Hgb 14.0 Hct 42.0 MCV 87.9 MCH 29.3 MCHC 33.3 RDW Std Deviation 53.0 H RDW Coeff of Anil 16.3 H Plt Count 167 MPV 11.3 Immature Gran % (Auto) 0.200 Neut % (Auto) 32.0 L Lymph % (Auto) 36.2 Caroline % (Auto) 19.4 H Eos % (Auto) 10.7 H Baso % (Auto) 1.5 H Absolute Neuts (auto) 1.5 L Absolute Lymphs (auto) 1.72 Nucleated RBC % 0 Sodium 140 Potassium 3.9 Chloride 109 H Carbon Dioxide 17.6 L Anion Gap 13 BUN 26 H Creatinine 1.78 H Estim Creat Clear Calc 55.26 Est GFR (MDRD) Non-Af 44 L BUN/Creatinine Ratio 14.8 Glucose 120 H Calcium 8.9 Total Bilirubin 1.49 H Direct Bilirubin 0.55 H AST 40 H ALT 25 Alkaline Phosphatase 106 Total Protein 7.2 Albumin 3.7 Globulin 3.5 Lipase 94 H Radiography Diagnostic Testing: Clinical Impression(s) from Imaging Studies Gallbladder Ultrasound 08/29/24 22:07 IMPRESSION: Slightly heterogeneous hepatic echotexture without focal lesion. Cholelithiasis without evidence of cholecystitis. Normal appearing transplant right kidney. [facility] Chest X-Ray 08/29/24 22:40 IMPRESSION: No Acute Findings. Reading Location: [id number] Chest x-ray as interpreted by the emergency medicine physician reveals no acute infiltrate pneumothorax or pleural effusion Discharge Plan Triage Chief Complaint: Shortness of Breath ED Provider: Haja Savage Dx/Rx/DC Orders Clinical Impression: Viral upper respiratory tract infection with cough, History of kidney transplant, Debility, Hypertension Instructions: ED Bronchitis with Wheezing (Adult) Prescriptions: New doxycycline hyclate 100 mg capsule 100 mg PO BID 7 Days Qty: 14 0RF No Action mycophenolate mofetil 500 MG tablet 500 mg PO BID multivitamin Tablet 1 tab PO DAILY lactulose 20 gram/30 mL solution 30 ml PO TID Xifaxan 550 mg tablet 550 mg PO BID tacrolimus 0.5 mg capsule 0.5 mg PO BID mirtazapine 30 mg tablet 30 mg PO QHS diltiazem HCl [Cardizem LA] 120 mg tablet extended release 24 hr 120 mg PO DAILY Qty: 30 0RF metoprolol tartrate 25 mg Tablet 25 mg PO BID Qty: 0 0RF acetaminophen 325 mg tablet 650 mg PO Q4H PRN (Reason: fever or pain) allopurinol 100 mg tablet 100 mg PO DAILY guaifenesin [Adult Tussin Chest Congestion] 100 mg/5 mL liquid 200 mg PO Q4H PRN (Reason: cough) magnesium hydroxide [Milk of Magnesia] 400 mg/5 mL suspension 30 ml PO DAILY PRN (Reason: constipation) pantoprazole [Protonix] 40 mg tablet,delayed release (DR/EC) 40 mg PO DAILY Qty: 60 0RF atorvastatin 40 mg tablet 40 mg PO QHS Xarelto 20 mg tablet 20 mg PO DAILY 30 Days Qty: 30 0RF Rx Instructions: must administer with evening meal aspirin 81 mg capsule 81 mg PO DAILY 30 Days Qty: 30 0RF diltiazem HCl 120 mg tablet 120 mg PO DAILY lactulose [Enulose] 10 gram/15 mL solution 30 ml PO TID Primary Care Provider: iMke Bella Referrals: Mike Bella MD [Primary Care Provider] - Activity Restrictions/Additional Instructions: Your x-ray did not show any obvious signs of pneumonia and your COVID influenza and RSV test was negative. However as you are immunosuppressed from your antirejection medication please take the antibiotic as directed to help prevent any developing infection. Use the inhaler as directed as well to help with lung spasm and this will help with your shortness of breath. Return to the ER should you have any further concerns Print Language: Turkish Disposition Disposition: Home, Self Care Discharge Date/Time: 08/30/24 00:22
[2024-08-29 22:17] LABS: Absolute Lymphocyte Count 1.72 X10^3/uL (0.83-4.51); Absolute Neutrophil Count 1.5 X10^3/uL (2.0-7.7); Basophil# 0.07 X10^3/uL; Basophil% 1.5 % (0-1); Eosinophil# 0.51 X10^3/uL; Eosinophils% 10.7 % (0-5); Lymphocyte # 1.72 X10^3/ul (0.83-4.51); Lymphocyte % 36.2 % (19-41); Mean Corp Hgb Conc 33.3 g/dL (32-36); Mean Corpuscular Hgb 29.3 pg (27.0-32.0); Mean Corpuscular Volume 87.9 fL (80-94); Mean Platelet Vol. 11.3 fl (6.2-12.0); Monocyte# 0.92 X10^3/uL; Monocyte% 19.4 % (0-10); NRBC Flagged by Analyzer 0 % (0-5); Neutrophil # 1.52 X10^3/uL (2.7-7.7); Platelet Count 167 K/mm3 (150-450); RBC Distribution Width CV 16.3 % (11.6-14.6); Red Blood Count 4.78 M/mm3 (4.6-6.2); White Blood Count 4.8 K/mm3 (4.4-11.0)
[2024-08-29 22:26] VITALS: BP 129/83; PULSE 76; RESP 17; TEMP 36.8; O2SAT 96
[2024-08-29 22:27] VITALS: PULSE 79; RESP 20
[2024-08-29] MEDS: Ipratropium/Albuterol Sulfate 3 ML AMPUL.NEB INHALATION (22:27)
--- NOTE | 2024-08-29 22:40 | RAD_ITS ---
PROCEDURE: CHEST 1 VIEW (PORTABLE) 08/29/2024 REASON FOR EXAM: COUGH TECHNIQUE: Frontal view of the chest. COMPARISON: 01/28/2024 FINDINGS: Hardware: None Heart: Cardiac and mediastinal contours are stable. Lungs: The lungs are clear. Bones: The bones are unremarkable. Other: RAD/Chest 1 View (Portable) IMPRESSION: No Acute Findings. Reading Location: [id number]
[2024-08-29 22:49] LABS: AST(SGOT) 40 U/L (<=37); Alanine Aminotransfer ALT/SGPT 25 U/L (<=46); Albumin, Serum 3.7 g/dL (3.5-5.0); Alkaline Phosphatase 106 U/L (40-129); Anion Gap 13 (5-15); BUN 26 mg/dL (4-19); BUN/Creat Ratio 14.8 RATIO (10-20); Bilirubin, Direct 0.55 mg/dL (0.00-0.30); Calcium,Total 8.9 mg/dL (7.6-11.0); Carbon Dioxide 17.6 mmol/L (21.0-32.0); Chloride 109 mmol/L (98-108); Creatinine, Serum 1.78 mg/dL (0.70-1.20); EST Glomerular Filtration Rate 44 (>60); Estimated Creatinine Clearance 55.26 ml/min (50-250); Globulin 3.5 g/dL (2.2-4.2); Glucose 120 mg/dL (70-99); Lipase 94 U/L (13-75); Potassium 3.9 mmol/L (3.3-5.1); Protein, Total 7.2 g/dL (5.9-8.4); Sodium Level 140 mmol/L (133-145); Total Bilirubin 1.49 mg/dL (0.00-1.30)
[2024-08-29 23:17] VITALS: BP 134/81; PULSE 75; RESP 18; O2SAT 95
[2024-08-30] MEDS: Doxycycline 100 MG CAPSULE PO (00:20)
[2024-08-30] MEDS: Albuterol Sulfate 8 gm Inhaler (60 puffs) 2 PUFF INHALATION (00:20)
[2024-08-30 00:21] VITALS: BP 135/80; PULSE 73; RESP 16; TEMP 36.6; O2SAT 99
--- NOTE | 2024-08-30 00:29 | ED.RN ---
report called to [facility]
== END 2024-08-30 00:22 | disposition home or self-care (01) ==
PROVIDERS: Emergency Provider Emergency Medicine; PCP Family Medicine; Visit Provider Emergency Medicine
DX: R06.02 Shortness of breath (principal); N18.32 Chronic kidney disease, stage 3b; J06.9 Acute upper respiratory infection, unspecified; R10.13 Epigastric pain; I12.9 Hypertensive chronic kidney disease with stage 1 through stage 4 chronic kidney disease, or unspecified chronic kidney disease; R05.9 Cough, unspecified; Z94.0 Kidney transplant status; R53.81 Other malaise; Z79.899 Other long term (current) drug therapy; I25.2 Old myocardial infarction; Z79.82 Long term (current) use of aspirin
CPT/HCPCS: 71045; 76705; 80048; 80076; 83690; 85025; 87631; 94640; 99285